=== PATIENT | female | born 1955 | race Caucasian/White ===

== ENCOUNTER 2016-11-13 14:25 | Inpatient (IN) | payer MEDICARE ==
[2016-11-13] MEDS ORDERED: HYDROmorphone 1 MG/ML 1 ML SYRINGE IVP STA (15:21)
[2016-11-13] MEDS ORDERED: ONDANSETRON 4 MG/2 ML VIAL IVP STA (15:21)
[2016-11-13] MEDS ORDERED: PANTOPRAZOLE 40 MG/10 ML VIAL IVP STA (15:22)
--- NOTE | 2016-11-13 15:26 | ED ---
General Adult HPI - General Chief complaint: Abdominal Pain Stated complaint: rectal bleeding/pain Time Seen by Provider: 11/13/16 14:56 Source: patient, RN notes reviewed Mode of arrival: ambulatory Limitations: no limitations - History of Present Illness Initial comments: Patient 61-year-old female who presents emergency room today with a chief complaint of increased abdominal pain over the last week. Does admit to a history of colitis. States that over the past weeks had increased symptoms with diarrhea. She states she's noticed blood in the stool in the toilet paper. She states it's a bright red color. Patient does admit to a colonoscopy approximately a year ago performed by Dr. Sanders. Patient states that she has had some abdominal discomfort in lower abdomen both right lower quadrant. She does admit to some symptoms of nausea vomiting last night. Patient denies any other symptoms. Patient denies any recent fever, chills, shortness of breath, chest pain, back pain, numbness or tingling, dysuria or hematuria, constipation, headaches or visual changes, or any other complaints. - Related Data Home Medications Medication Instructions Recorded Confirmed Benazepril HCl [Benazepril HCl] 20 mg PO QAM 01/24/16 11/13/16 Hydrocodone/Acetaminophen 1 tab PO BID PRN 01/24/16 11/13/16 [Hydrocodon-Acetaminophn 10-325] amLODIPine BESYLATE [Amlodipine 5 mg PO QAM 01/24/16 11/13/16 Besylate] Albuterol Sulfate [Proair Hfa] 1 puff INHALATION RT-Q6H PRN 08/15/16 11/13/16 Budesonide/Formoterol Fumarate 2 puff INHALATION RT-BID 11/13/16 11/13/16 [Symbicort 160-4.5 Mcg Inhaler] Dextroamphetamine/Amphetamine 15 mg PO QAM 11/13/16 11/13/16 [Adderall Xr] Etanercept [Enbrel] 50 mg SQ DIRECTED 11/13/16 11/13/16 Ipratropium-Albuterol Nebulize 3 ml INHALATION RT-QID PRN 11/13/16 11/13/16 [Duoneb 0.5 mg-3 mg/3 ml Soln] Allergies Allergy/AdvReac Type Severity Reaction Status Date / Time infliximab [From Remicade] Allergy Dyspnea/HIV Verified 11/13/16 14:51 ES propoxyphene HCl Allergy Unknown Verified 11/13/16 14:51 [From Darvon] Review of Systems ROS Statement: Those systems with pertinent positive or pertinent negative responses have been documented in the HPI. ROS Other: All systems not noted in ROS Statement are negative. 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 CA FROM PERINEUM Past Anesthesia/Blood Transfusion Reactions: No Reported Reaction Past Psychological History: No Psychological Hx Reported Smoking Status: Former smoker Past Alcohol Use History: Daily Additional Past Alcohol Use History / Comment(s): STATES QUIT SMOKING IN 1999, SMOKED 2 PPD SINCE AGE 12, STATES DRINKS 2 DRINKS A NIGHT Past Drug Use History: None Reported Additional Drug Use History / Comment(s): OCCASIONAL MARIJUANA USE, INSTRUCTED TO HOLD 24 HRS PRIOR TO PROCEDURE - Past Family History Father Family Medical History: Cancer Additional Family Medical History / Comment(s): COLON Mother Family Medical History: Cancer Additional Family Medical History / Comment(s): ESOPHAGUS Sister(s) Family Medical History: Cancer Additional Family Medical History / Comment(s): CERVICAL General Exam - General Exam Comments Initial Comments: General: The patient is awake and alert, in no distress, and does not appear acutely ill. Eye: Pupils are equal, round and reactive to light, extra-ocular movements are intact. No nystagmus. There is normal conjunctiva bilaterally. No signs of icterus. Ears, nose, mouth and throat: There are moist mucous membranes and no oral lesions. Neck: The neck is supple, there is no tenderness or JVD. Cardiovascular: There is a regular rate and rhythm. No murmur, rub or gallop is appreciated. Respiratory: Lungs are clear to auscultation, respirations are non-labored, breath sounds are equal. No wheezes, stridor, rales, or rhonchi. Gastrointestinal: Normal appearance for abdomen. Normal bowel sounds. Soft on palpation. Patient does have tenderness both right and left lower quadrants. No rebound tenderness. No guarding. No CVA tenderness. Musculoskeletal: Normal ROM, no tenderness. Strength 5/5. Sensation intact. Pulses equal bilaterally 2+. Neurological: A&O x 3. CN II-XII intact, There are no obvious motor or sensory deficits. Coordination appears grossly intact. Speech is normal. Skin: Skin is warm and dry and no rashes or lesions are noted. Psychiatric: Cooperative, appropriate mood & affect, normal judgment. Limitations: no limitations Course Vital Signs 11/13/16 14:48 Temperature 98.2 F Pulse Rate 87 Respiratory 18 Rate Blood Pressure 132/87 O2 Sat by Pulse 97 Oximetry Medical Decision Making - Medical Decision Making Patient reexamined at this time shows no signs of distress. She states she is feeling better after pain medication here in the emergency room. Her labs reviewed does show 14.9 white count. Guaiac positive. Patient's CT of the abdomen and pelvis reviewed and does show evidence for a focal colitis. Case discussed with him physician Dr. Hsieh and patient will be admitted to the hospitalist. She will be started on antibiotics here in the emergency room. - Lab Data Result diagrams: 11/13/16 15:05 11/13/16 15:05 Lab Results 11/13/16 11/13/16 11/13/16 Range/Units 15:05 15:05 15:05 WBC 14.9 H (3.8-10.6) k/uL RBC 4.54 (3.80-5.40) m/uL Hgb 15.4 (11.4-16.0) gm/dL Hct 47.8 H (34.0-46.0) % MCV 105.1 H (80.0-100.0) fL MCH 33.9 (25.0-35.0) pg MCHC 32.2 (31.0-37.0) g/dL RDW 12.4 (11.5-15.5) % Plt Count 279 (150-450) k/uL Neutrophils % 76 % Lymphocytes % 16 % Monocytes % 6 % Eosinophils % 1 % Basophils % 0 % Neutrophils # 11.3 H (1.3-7.7) k/uL Lymphocytes # 2.3 (1.0-4.8) k/uL Monocytes # 0.9 (0-1.0) k/uL Eosinophils # 0.2 (0-0.7) k/uL Basophils # 0.1 (0-0.2) k/uL Macrocytosis Slight PT (9.0-12.0) sec INR (<1.1) APTT (22.0-30.0) sec Sodium 135 L (137-145) mmol/L Potassium 4.1 (3.5-5.1) mmol/L Chloride 97 L (98-107) mmol/L Carbon Dioxide 28 (22-30) mmol/L Anion Gap 10 mmol/L BUN 19 H (7-17) mg/dL Creatinine 0.74 (0.52-1.04) mg/dL Est GFR (MDRD) Af Amer >60 (>60 ml/min/1.73 sqM) Est GFR (MDRD) Non-Af >60 (>60 ml/min/1.73 sqM) Glucose 102 H (74-99) mg/dL Calcium 9.1 (8.4-10.2) mg/dL Total Bilirubin 1.0 (0.2-1.3) mg/dL AST 25 (14-36) U/L ALT 43 (9-52) U/L Alkaline Phosphatase 85 (38-126) U/L Total Protein 7.2 (6.3-8.2) g/dL Albumin 4.1 (3.5-5.0) g/dL Urine Color Urine Appearance (Clear) Urine pH (5.0-8.0) Ur Specific Abell (1.001-1.035) Urine Protein (Negative) Urine Glucose (UA) (Negative) Urine Ketones (Negative) Urine Blood (Negative) Urine Nitrate (Negative) Urine Bilirubin (Negative) Urine Urobilinogen (<2.0) mg/dL Ur Leukocyte Esterase (Negative) Urine RBC (0-5) /hpf Urine WBC (0-5) /hpf Ur Squamous Epith Cells (0-4) /hpf Urine Mucus (None) /hpf Urine Yeast (Budding) (None) /hpf Stool Occult Blood Positive H (Negative) 11/13/16 11/13/16 Range/Units 15:05 17:08 WBC (3.8-10.6) k/uL RBC (3.80-5.40) m/uL Hgb (11.4-16.0) gm/dL Hct (34.0-46.0) % MCV (80.0-100.0) fL MCH (25.0-35.0) pg MCHC (31.0-37.0) g/dL RDW (11.5-15.5) % Plt Count (150-450) k/uL Neutrophils % % Lymphocytes % % Monocytes % % Eosinophils % % Basophils % % Neutrophils # (1.3-7.7) k/uL Lymphocytes # (1.0-4.8) k/uL Monocytes # (0-1.0) k/uL Eosinophils # (0-0.7) k/uL Basophils # (0-0.2) k/uL Macrocytosis PT 9.4 (9.0-12.0) sec INR 0.9 (<1.1) APTT 24.0 (22.0-30.0) sec Sodium (137-145) mmol/L Potassium (3.5-5.1) mmol/L Chloride (98-107) mmol/L Carbon Dioxide (22-30) mmol/L Anion Gap mmol/L BUN (7-17) mg/dL Creatinine (0.52-1.04) mg/dL Est GFR (MDRD) Af Amer (>60 ml/min/1.73 sqM) Est GFR (MDRD) Non-Af (>60 ml/min/1.73 sqM) Glucose (74-99) mg/dL Calcium (8.4-10.2) mg/dL Total Bilirubin (0.2-1.3) mg/dL AST (14-36) U/L ALT (9-52) U/L Alkaline Phosphatase (38-126) U/L Total Protein (6.3-8.2) g/dL Albumin (3.5-5.0) g/dL Urine Color Yellow Urine Appearance Clear (Clear) Urine pH 6.0 (5.0-8.0) Ur Specific Abell >1.050 H (1.001-1.035) Urine Protein Trace H (Negative) Urine Glucose (UA) Negative (Negative) Urine Ketones Negative (Negative) Urine Blood Small H (Negative) Urine Nitrate Negative (Negative) Urine Bilirubin Negative (Negative) Urine Urobilinogen <2.0 (<2.0) mg/dL Ur Leukocyte Esterase Small H (Negative) Urine RBC 1 (0-5) /hpf Urine WBC 2 (0-5) /hpf Ur Squamous Epith Cells 3 (0-4) /hpf Urine Mucus Rare H (None) /hpf Urine Yeast (Budding) Rare H (None) /hpf Stool Occult Blood (Negative) Disposition Clinical Impression: Acute colitis, Stool guaiac positive, GI bleed Disposition: ADMITTED IP TO THIS HOSP Condition: Stable Time of Disposition: 18:01
--- NOTE | 2016-11-13 15:52 | XR ---
EXAMINATION TYPE: XR KUB DATE OF EXAM: 11/13/2016 3:47 PM CLINICAL HISTORY: Rectal bleeding and lower abdominal pain. History of colitis. TECHNIQUE: 2 upright KUB images of the abdomen are obtained COMPARISON: None. FINDINGS: Scattered gas is seen in non-distended small bowel loops. Gas is seen in non-distended co nicholas. There suggestion of mild wall thickening involving colonic loops in the left lower quadrant. No pneumoperitoneum or suspicious calcification is seen. Lung bases are clear. Osseous structures are in tact. IMPRESSION: Overall nonobstructive bowel gas pattern. Consider colitis left lower quadrant involving distal left colon.
[2016-11-13 15:57] LABS: Basophils # (A) 0.1 k/uL (0-0.2); Basophils % (A) 0 %; CH 34.6; CHCM 33.1; Eosinophils # (A) 0.2 k/uL (0-0.7); Eosinophils % (A) 1 %; HCT 47.8 % (34.0-46.0); HDW 2.04; HGB 15.4 gm/dL (11.4-16.0); Luc # (Auto) 0.16; Luc % (Auto) 1; Lymphocytes # (A) 2.3 k/uL (1.0-4.8); Lymphocytes % (A) 16 %; MCH 33.9 pg (25.0-35.0); MCHC 32.2 g/dL (31.0-37.0); MCV 105.1 fL (80.0-100.0); Macrocytosis Slight; Mean Platelet Volume 8.6; Monocytes # (A) 0.9 k/uL (0-1.0); Monocytes % (A) 6 %; Neutrophils # (A) 11.3 k/uL (1.3-7.7); Neutrophils % (A) 76 %; RBC 4.54 m/uL (3.80-5.40); RDW 12.4 % (11.5-15.5); WBC 14.9 k/uL (3.8-10.6); WBC (Perox) 15.12
[2016-11-13 16:01] LABS: ALT 43 U/L (9-52); AST 25 U/L (14-36); Alkaline Phosphatase 85 U/L (38-126); Anion Gap 10 mmol/L; Blood Urea Nitrogen 19 mg/dL (7-17); Calcium 9.1 mg/dL (8.4-10.2); Carbon Dioxide 28 mmol/L (22-30); Chloride 97 mmol/L (98-107); Glucose 102 mg/dL (74-99); Non-African American GFR(MDRD) >60 (>60 ml/min/1.73 sqM); Potassium 4.1 mmol/L (3.5-5.1); Sodium 135 mmol/L (137-145); Total Protein 7.2 g/dL (6.3-8.2)
[2016-11-13 16:06] LABS: INR 0.9 (<1.1); Prothrombin Time 9.4 sec (9.0-12.0)
[2016-11-13] MEDS ORDERED: RX INFO: IV CONTRAST WAS GIVEN 1 EACH MISC MISCELLANE PRN (16:07)
--- NOTE | 2016-11-13 17:17 | CT ---
EXAMINATION TYPE: CT abdomen pelvis w con DATE OF EXAM: 11/13/2016 5:00 PM COMPARISON: NONE HISTORY: Pt states of abdominal pain and blood in stool. CT DLP: 857 mGycm Automated exposure control for dose reduction was used. TECHNIQUE: Helical acquisition of images was performed from the lung bases through the pelvis. CONTRAST: Performed without Oral Contrast and with IV Contrast, patient injected with 100 mL of Omnipaque 300. FINDINGS: Lung bases are clear of consolidation. There is no pleural effusion. Heart size is normal. The liver spleen pancreas gallbladder appear normal. Bile ducts are not dilated . There is no adrenal mass. Kidneys show satisfactory contrast opacification. There is no hydronephro sis. There is no retroperitoneal adenopathy. The bladder distends smoothly. There is no sign of a pel khang mass. There is mild thickening of the wall of the descending colon. There is no ascites. I see no bony destructive process. Abdominal aorta is atheromatous. Appendix is not seen. There is no sign of appendicitis. IMPRESSION: THERE IS MILD WALL THICKENING INVOLVING THE DESCENDING COLON THAT APPEARS NEW COMPARED TO OLD EXAM AN D COULD RELATE TO FOCAL COLITIS.
[2016-11-13 17:24] LABS: Appearance,Urine Clear (Clear); Bilirubin,Urine Negative (Negative); Glucose,Urine (UA) Negative (Negative); Ketones,Urine Negative (Negative); Leukocyte Esterase,Urine Small (Negative); Mucus,Urine Rare /hpf; Nitrite,Urine Negative (Negative); Particle Count 2041; Protein,Urine Trace (Negative); RBC,Urine 1 /hpf (0-5); Squamous Epithelial Cell,Urine 3 /hpf (0-4); UA Billing (MACRO vs. MICRO) MICRO; Urobilinogen,Urine <2.0 mg/dL (<2.0); WBC,Urine 2 /hpf (0-5)
[2016-11-13 17:44] LABS: Specific Gravity,Urine >1.050 (1.001-1.035)
[2016-11-13] MEDS ORDERED: metroNIDAZOLE-NS PMX 500 MG in SALINE 1 100ML.BAG IVPB STA (18:02)
[2016-11-13] MEDS ORDERED: ONDANSETRON 4 MG/2 ML VIAL IVP PRN (18:02)
[2016-11-13] MEDS ORDERED: LEVOFLOXACIN 500MG-D5W PMX 500 MG in DEXTROSE/WATER 1 100ML.BAG IVPB STA (18:02)
[2016-11-13] MEDS ORDERED: ACETAMINOPHEN TAB 325 MG TAB PO PRN (18:02)
[2016-11-13] MEDS ORDERED: SODIUM CHLORIDE 0.9% 1,000 ML IV ONE (18:02)
[2016-11-13] MEDS ORDERED: NALOXONE 0.4 MG/ML 1 ML VIAL IV PRN (18:02)
[2016-11-13] MEDS: HYDROmorphone 1 MG/ML 1 ML SYRINGE IV PRN ×2 (18:59→22:53)
[2016-11-13] MEDS ORDERED: ALBUTEROL NEBULIZED 2.5 MG/3 ML INHALATION PRN (22:06)
[2016-11-13] MEDS: IPRATROPIUM-ALBUTEROL 3 ML NEB INHALATION PRN (22:21)
[2016-11-13] MEDS: metroNIDAZOLE-NS PMX 500 MG in SALINE 1 100ML.BAG IVPB SCH (22:59)
[2016-11-13] MEDS: MELATONIN 3 MG TABLET PO PRN (23:35)
[2016-11-14] MEDS: HYDROmorphone 1 MG/ML 1 ML SYRINGE IV PRN ×3 (04:06→11:32)
[2016-11-14] MEDS: IPRATROPIUM-ALBUTEROL 3 ML NEB INHALATION PRN ×4 (07:44→19:48)
[2016-11-14] MEDS: SYMBICORT 160-4.5 MCG INHALER INHALATION SCH ×2 (07:45→19:48)
[2016-11-14] MEDS: amLODIPine 5 MG TAB PO SCH (08:15)
[2016-11-14] MEDS: metroNIDAZOLE-NS PMX 500 MG in SALINE 1 100ML.BAG IVPB SCH ×3 (08:15→23:17)
[2016-11-14] MEDS: PANTOPRAZOLE 40 MG/10 ML VIAL IV SCH (08:15)
[2016-11-14 08:43] LABS: Basophils % (A) 0 %; CH 34.2; CHCM 32.4; Eosinophils # (A) 0.2 k/uL (0-0.7); Eosinophils % (A) 2 %; HCT 38.5 % (34.0-46.0); HGB 12.5 gm/dL (11.4-16.0); Luc # (Auto) 0.28; Luc % (Auto) 3; Lymphocytes % (A) 18 %; MCH 34.4 pg (25.0-35.0); MCHC 32.4 g/dL (31.0-37.0); MCV 106.1 fL (80.0-100.0); Macrocytosis Slight; Mean Platelet Volume 7.6; Monocytes # (A) 0.7 k/uL (0-1.0); Monocytes % (A) 6 %; Neutrophils # (A) 7.7 k/uL (1.3-7.7); Neutrophils % (A) 71 %; RBC 3.63 m/uL (3.80-5.40); RDW 12.1 % (11.5-15.5); WBC 10.8 k/uL (3.8-10.6); WBC (Perox) 10.85
[2016-11-14 09:07] LABS: ALT 35 U/L (9-52); AST 18 U/L (14-36); Alkaline Phosphatase 66 U/L (38-126); Anion Gap 7 mmol/L; Blood Urea Nitrogen 12 mg/dL (7-17); Calcium 8.6 mg/dL (8.4-10.2); Carbon Dioxide 25 mmol/L (22-30); Chloride 104 mmol/L (98-107); Glucose 92 mg/dL (74-99); Non-African American GFR(MDRD) >60 (>60 ml/min/1.73 sqM); Potassium 4.4 mmol/L (3.5-5.1); Sodium 136 mmol/L (137-145); Total Bilirubin 0.9 mg/dL (0.2-1.3); Total Protein 5.8 g/dL (6.3-8.2)
[2016-11-14] MEDS: LEVOFLOXACIN 500MG-D5W PMX 500 MG in DEXTROSE/WATER 1 100ML.BAG IVPB SCH (10:26)
[2016-11-14 11:56] VITALS: BMI 29.8
[2016-11-14] MEDS ORDERED: NON-FORMULARY DRUG (Etanercept [Enbrel] 50 MG) SQ SCH (13:00)
[2016-11-14] MEDS: HYDROcodone/APAP 5-325MG 1 EACH TAB PO PRN ×2 (13:14→16:35)
[2016-11-14] MEDS: traMADol 50 MG TAB PO PRN ×2 (14:32→20:20)
[2016-11-14] MEDS ORDERED: FLUCONAZOLE 100 MG TAB PO STA (16:51)
[2016-11-14] MEDS: HYDROcodone/APAP 10-325MG 1 EACH TAB PO PRN ×2 (17:24→21:36)
--- NOTE | 2016-11-14 19:25 | HP ---
DATE OF ADMISSION: Patient a 61-year-old admitted with lower quadrant abdominal pain bilaterally along with bilateral lower quadrant abdominal pain along with nausea, vomiting, diarrhea and a little bit of bright red blood per rectum, all of which symptoms improved. Patient is still having pain in that area. Patient denied any fevers, chills. Patient denied any nausea, vomiting. Patient is found to have colitis in the descending colon on the CT and patient was started on metronidazole and ciprofloxacin with improvement in symptoms and leukocytosis. Patient denied any dysuria. Patient denied any hematuria, hematemesis. Patient denied any constipation. Patient does use a fiber diet at home. REVIEW OF SYSTEMS: CONSTITUTIONAL: No fever, no malaise, no fatigue. HEENT: No recent visual problems or hearing problems. Denied any sore throat. CARDIOVASCULAR: No chest pain, orthopnea, PND, no palpitations, no syncope. PULMONARY: No shortness of breath, no cough, no hemoptysis. GASTROINTESTINAL: As described in HPI. NEUROLOGICAL: No headaches, no weakness, no numbness. HEMATOLOGICAL: Denies any bleeding or petechiae. GENITOURINARY: Denies any burning micturition, frequency, or urgency. MUSCULOSKELETAL/RHEUMATOLOGICAL: Denies any joint pain, swelling, or any muscle pain. ENDOCRINE: Denies any polyuria or polydipsia. The rest of the 14 point review of systems is negative. Home medications include: Benazepril, hydrocodone, acetaminophen, amlodipine, budesonide, formoterol, dexamphetamine, amphetamine, ( ) for rheumatoid arthritis which she does not have any exacerbation, albuterol and ipratropium. ALLERGIES: ALLERGIC TO INFLIXIMAB AND PROPOXYPHENE. PAST MEDICAL HISTORY: Significant for COPD, hypertension, rheumatoid arthritis, chronic obstructive pulmonary disease and patient had perianal cancer. PAST SURGICAL HISTORY: Hysterectomy, joint replacement surgery, former smoker. Quit smoking in 1999. Denied any alcohol abuse or any drug abuse. FAMILY HISTORY: Significant for colon cancer in father and esophageal cancer in mother. Cervical cancer in sister. PHYSICAL EXAMINATION: VITAL SIGNS: 97.3, pulse of 88, respiratory rate of 16, blood pressure is 117/81, saturating at 94% on room air. GENERAL: The patient is alert and oriented x3, not in any acute distress. Well developed, well nourished. HEENT: Pupils are round and equally reacting to light. EOMI. No scleral icterus. No conjunctival pallor. Normocephalic, atraumatic. No pharyngeal erythema. No thyromegaly. CARDIOVASCULAR: S1 and S2 present. No murmurs, rubs, or gallops. PULMONARY: Chest is clear to auscultation, no wheezing or crackles. ABDOMEN: Minimal tenderness in the left upper quadrant area was appreciated. MUSCULOSKELETAL: No joint swelling or deformity. EXTREMITIES: No cyanosis, clubbing, or pedal edema. NEUROLOGICAL: Gross neurological examination did not reveal any focal deficits. SKIN: No rashes. LABORATORY DATA: CBC, CMP are abnormal for elevated WBC count, which is improving at this point of time. Sodium improved to 135 to 136. BUN and creatinine improved as well. ASSESSMENT AND PLAN: 1. Colitis. Patient has colitis, which appears to be diverticulitis as per the CT of the abdomen. Considering history of her cancer in the past, I will go ahead and consult Gastroenterology for an inpatient versus outpatient colonoscopy. 2. Lower gastrointestinal bleed, mostly probably related to diverticulitis. Patient will be continued on antibiotics. Because of gastrointestinal bleed and history of colon cancer, I will go ahead and consult Gastroenterology. Patient probably can be discharged on oral antibiotics tomorrow. 3. Hypertension. 4. Chronic obstructive pulmonary disease without any acute exacerbation. 5. Rheumatoid arthritis. For above mentioned chronic medical problems I will go ahead and continue her home medications except for benazepril.
[2016-11-14] MEDS: MELATONIN 3 MG TABLET PO PRN (21:06)
[2016-11-15] MEDS: HYDROcodone/APAP 10-325MG 1 EACH TAB PO PRN ×5 (02:08→20:15)
[2016-11-15] MEDS: SYMBICORT 160-4.5 MCG INHALER INHALATION SCH ×2 (08:11→20:31)
[2016-11-15] MEDS: IPRATROPIUM-ALBUTEROL 3 ML NEB INHALATION PRN ×4 (08:11→20:31)
[2016-11-15] MEDS: metroNIDAZOLE-NS PMX 500 MG in SALINE 1 100ML.BAG IVPB SCH ×3 (08:45→23:37)
[2016-11-15] MEDS: PANTOPRAZOLE 40 MG/10 ML VIAL IV SCH (08:46)
[2016-11-15] MEDS: amLODIPine 5 MG TAB PO SCH (08:46)
[2016-11-15] MEDS ORDERED: AMPHETAMINE PO SCH (09:00)
[2016-11-15] MEDS ORDERED: DEXTROAMPHETAMINE PO SCH (09:00)
--- NOTE | 2016-11-15 09:41 | P.CONS ---
History of Present Illness - Reason for Consult Consult date: 11/15/16 Colitis GI bleed Requesting physician: Molly Canela - History of Present Illness 61-year-old female patient of Dr. Mijares with a past medical history of ischemic colitis, hemorrhoids, obesity, remote nicotine cigarette dependency, chronic constipation, vulvar carcinoma, hypertension, COPD, rheumatoid arthritis, depression, and daily alcohol consumption. Has 2-3 vodka drinks a night. She presents with crampy lower abdominal pain with multiple loose brown bowel movements mixed with red blood 2 days. This has been intermittently chronic in nature for the last 4 years. EGD colonoscopy December [address] Burger. EGD reported no evidence of peptic ulcer disease. Colonoscopy was incomplete secondary to redundancy of colon. Follow-up barium enema reported narrowing in the mid sigmoid colon barium was unable to pass beyond that region. Prior colonoscopy sometime between [id number] Soliman at [facility] was attempted but patient doesn't know if it was an incomplete exam or not. She reports chronic constipation having bowel moments every 3-4 days despite taking MiraLAX. No fever or chills. No recent antibiotics. Denies weight loss hematemesis or melena. Denies aspirin or NSAID or antiplatelet medications. Rectal bleeding in the past been attributed to "hemorrhoids". White count 14.9 currently 10.8. Admission hemoglobin 15.4 currently 12.5. MCV 106. Platelet 234. INR 0.9. BUN 19. Creatinine 0.7. Hemoccult stool positive for blood. CT abdomen and pelvis with oral and IV contrast reported mild wall thickening involving the descending colon possible focal colitis. Review of Systems Constitutional: Denies fever, chills, sweats, weight gain, or loss. HEENT: Negative for migraines, blurred vision or loss, earaches, drainage, tinnitus, oral mucosal lesions, dysphagia, or odynophagia. CARDIAC: Negative for chest pain, arrhythmias, or palpitation. RESPIRATORY: History COPD. History of pneumonia. Negative for shortness of breath, hemoptysis, cough, or sputum production. Remote cigarette usage. GI: See HPI for pertinent findings. : Negative for hematuria, urgency, frequency, polyuria, or dysuria. GYNc: History of vulvar cancer. Denies possibility of . Negative vaginal discharge. MUSCULOSKELETAL: Negative for muscle aches, swelling, arthritis, and arthralgias. NEUROLOGIC: Negative for stroke or TIA. ENDOCRINE: History of rheumatoid arthritis. Negative for thyroid problems. SKIN: Negative for rash or itching. PSYCHIATRIC: History of depression. All systems: negative (See HPI) Past Medical History Past Medical History: Cancer, COPD, Hypertension, Pneumonia, Rheumatoid Arthritis (RA) Additional Past Medical History / Comment(s): HX RECTAL BLEEDING, CA VULVA, UTI, COLITIS,POLYPS(BENIGN),GOUT,OSTEOPOROSIS,SINUS/SEASONAL ALLERGIES History of Any Multi-Drug Resistant Organisms: None Reported Past Surgical History: Hysterectomy, Joint Replacement Additional Past Surgical History / Comment(s): RT KNEE REPLACEMENT, SX TO REMOVE CANCER VULVA,EGD,COLONOSCOPY, LASIK EYE SX Past Anesthesia/Blood Transfusion Reactions: No Reported Reaction Additional Past Anesthesia/Blood Transfusion Reaction / Comm: CLAUSTERPHOBIA Past Psychological History: Depression Additional Psychological History / Comment(s): PT STATEED OCC MILD DEPRESSION NO THOUGHTS OF HARMING SELF Smoking Status: Former smoker Past Alcohol Use History: Daily Additional Past Alcohol Use History / Comment(s): STATES QUIT SMOKING IN 1999, SMOKED 2 PPD SINCE AGE 12, STATES DRINKS 2-3 DRINKS A NIGHT(VODKA MIXED WITH BA AID Past Drug Use History: None Reported Additional Drug Use History / Comment(s): PAST OCC MARIJUANA- QUIT - Past Family History Father Family Medical History: Cancer Additional Family Medical History / Comment(s): COLON Mother Family Medical History: Cancer Additional Family Medical History / Comment(s): ESOPHAGUS Sister(s) Family Medical History: Cancer Additional Family Medical History / Comment(s): CERVICAL Medications and Allergies Home Medications Medication Instructions Recorded Confirmed Type Benazepril HCl [Benazepril HCl] 20 mg PO QAM 01/24/16 11/13/16 History Hydrocodone/Acetaminophen 1 tab PO BID PRN 01/24/16 11/13/16 History [Hydrocodon-Acetaminophn 10-325] amLODIPine BESYLATE [Amlodipine 5 mg PO QAM 01/24/16 11/13/16 History Besylate] Albuterol Sulfate [Proair Hfa] 1 puff INHALATION RT-Q6H PRN 08/15/16 11/13/16 History Budesonide/Formoterol Fumarate 2 puff INHALATION RT-BID 11/13/16 11/13/16 History [Symbicort 160-4.5 Mcg Inhaler] Dextroamphetamine/Amphetamine 15 mg PO QAM 11/13/16 11/13/16 History [Adderall Xr] Etanercept [Enbrel] 50 mg SQ DIRECTED 11/13/16 11/13/16 History Ipratropium-Albuterol Nebulize 3 ml INHALATION RT-QID PRN 11/13/16 11/13/16 History [Duoneb 0.5 mg-3 mg/3 ml Soln] Allergies Allergy/AdvReac Type Severity Reaction Status Date / Time infliximab [From Remicade] Allergy Dyspnea/HIV Verified 11/13/16 14:51 ES propoxyphene HCl Allergy Unknown Verified 11/13/16 14:51 [From Darvon] Physical Exam Vitals: Vital Signs Temp Pulse Pulse Resp BP Pulse Ox 11/15/16 07:00 97.1 F L 75 18 129/50 90 L 11/14/16 23:00 98.7 F 83 20 130/70 93 L 11/14/16 20:02 78 11/14/16 19:49 76 11/14/16 16:06 88 11/14/16 15:57 80 11/14/16 14:38 97.3 F L 82 16 117/81 94 L 11/14/16 11:13 88 11/14/16 11:02 88 Intake and Output 11/14/16 11/15/16 11/15/16 22:59 06:59 14:59 Other: # Voids 2 3 1 General appearance: The patient is alert, oriented, in no acute distress. HET: Head is normocephalic and atraumatic. Pupils are equal and reactive. Oropharynx is clear without lesions. Neck: Supple without lymphadenopathy. Trachea midline. Heart: S1 S2. Regular rate and rhythm. Lungs: No crackles or wheezes are heard. Abdomen: Soft, mild tenderness bilateral lower abdomen greater than left and right, nondistended with bowel sounds. No peritoneal signs. No palpable organomegaly or masses. Extremities: Normal skin color and turgor. No cyanosis, rash, ulceration, clubbing, or edema. Radial and pedal pulses are 2/4 bilaterally. Neurological: No focal deficits. Strength and sensation are grossly intact. Results CBC & Chem 7: 11/14/16 07:54 11/14/16 07:54 CT scan - abdomen: report reviewed CT scan - pelvis: report reviewed (Reviewed by Dr. Ponce) Assessment and Plan (1) GI bleed Narrative/Plan: 61-year-old female with a history of chronic intermittent rectal bleeding with underlying constipation and history of ischemic colitis presents with acute rectal bleeding with CT imaging reporting focal descending colitis suspect component of ischemic colitis exacerbated by chronic constipation. His tree of mid sigmoid narrowing with incomplete colonoscopy exam 10 months ago. Follow- up barium enema reported narrowing in the mid sigmoid however barium could not be introduced beyond that point suspect possible stricture disease however neoplasm cannot be entirely excluded. Status: Acute (2) Acute colitis Status: Acute (3) History of hemorrhoids Status: Chronic (4) EtOH dependence Status: Chronic (5) Chronic constipation Status: Chronic Plan: 1. Stool studies. 2. Liquid diet. 3. We'll attempt to obtain colonoscopy at [facility] 3-4 years ago and review however even if colonoscopy was completed at that time, advise repeat colonoscopy during this hospitalization secondary to persistent rectal bleeding and history of incomplete exams due to tortuous colon with radiographic imaging suggesting mid sigmoid narrowing. If unable to tolerate bowel prep will proceed with flexible sigmoidoscopy. Consider surgical consultation; patient know to Drs. Burger and Janny. 4. Stool softeners were discussed for treatment of constipation. The mutual fund sales agent has discussed the risks, benefits and alternative therapies for the above-mentioned procedure and for both sedation/analgesia as well as necessary blood product administration, if indicated, as they pertain to this patient. The patient has indicated understanding and acceptance of the risks and procedures discussed. Thank you for this kind referral and the opportunity to participate in the care of your patient. This consultation was discussed with Dr. Ponce. The impression and plan of care have been directed as dictated.
[2016-11-15] MEDS: LEVOFLOXACIN 500MG-D5W PMX 500 MG in DEXTROSE/WATER 1 100ML.BAG IVPB SCH (10:54)
[2016-11-15] MEDS: predniSONE 20 MG TAB PO SCH (12:38)
[2016-11-15] MEDS ORDERED: PEG 3350-NA SULF,BICARB,CL/KCL 4,000 ML BOTTLE PO ONE (14:00)
[2016-11-15] MEDS: HYDROmorphone 1 MG/ML 1 ML SYRINGE IV PRN (16:37)
--- NOTE | 2016-11-15 19:14 | PN ---
Patient was admitted with left lower quadrant abdominal pain, was found to have nonspecific focal colitis. Ischemic colitis is being considered by Gastroenterology. Patient is going for lower GI endoscopy and patient is also being treated for diverticulitis at this point of time. Patient continues to complain of some blood whenever she wipes. Patient has history of hemorrhoids in the past. REVIEW OF SYSTEMS: CARDIOVASCULAR: No chest pain, no orthopnea, no PND, no palpitations. PULMONARY: Denied any shortness of breath. No cough or hemoptysis. GASTROINTESTINAL: As described in HPI. Patient denied any abdominal pain today. NEUROLOGIC: No headaches, no weakness, no numbness. Medications were reviewed. PHYSICAL EXAMINATION: VITAL SIGNS: Temperature 97.1, pulse of 80, respiratory rate of 18. Blood pressure is 129/50. Saturating at 90% on room air. GENERAL: The patient is alert and oriented x3, not in any acute distress. Well developed, well nourished. HEENT: Pupils are round and equally reacting to light. EOMI. No scleral icterus. No conjunctival pallor. Normocephalic, atraumatic. No pharyngeal erythema. No thyromegaly. CARDIOVASCULAR: S1 and S2 present. No murmurs, rubs, or gallops. PULMONARY: Patient has very limited air entry to bilateral lung guzman. Significant wheezing bilaterally, because of which I am starting her on systemic steroids. Patient is already on inhalational steroids. ABDOMEN: Soft, nontender, nondistended, normoactive bowel sounds. No palpable organomegaly. MUSCULOSKELETAL: No joint swelling or deformity. EXTREMITIES: No cyanosis, clubbing, or pedal edema. NEUROLOGICAL: Gross neurological examination did not reveal any focal deficits. SKIN: No rashes. LABORATORY DATA: CBC, CMP are abnormal for elevated WBC count, but improved compared to yesterday. ASSESSMENT AND PLAN: 1. Acute lower gastrointestinal bleed, probably due to colitis, most ischemic colitis. Infectious colitis cannot be ruled out, because of which patient is on antibiotics metronidazole and levofloxacin. 2. Lower gastrointestinal bleed, probably multifactorial. There are no external hemorrhoids. Patient might as well have internal hemorrhoids responsible for her bleed. Patient is going for lower GI endoscopy. 3. Hypertension. 4. Chronic obstructive pulmonary disease with acute exacerbation. I have started her on 20 mg oral steroids, inhalational treatments and inhalational steroids. Patient is wheezing quite a bit at this point of time, although I do not believe patient has tracheobronchitis. Even if she has, patient is on 2 antibiotics at this point of time. 5. Rheumatoid arthritis. 6. History of chronic constipation.
[2016-11-15] MEDS: MELATONIN 3 MG TABLET PO PRN (23:39)
[2016-11-16] MEDS: HYDROmorphone 1 MG/ML 1 ML SYRINGE IV PRN ×6 (01:23→21:37)
[2016-11-16] MEDS: SYMBICORT 160-4.5 MCG INHALER INHALATION SCH ×2 (07:30→19:10)
[2016-11-16] MEDS: IPRATROPIUM-ALBUTEROL 3 ML NEB INHALATION PRN ×3 (07:30→19:10)
[2016-11-16] MEDS: metroNIDAZOLE-NS PMX 500 MG in SALINE 1 100ML.BAG IVPB SCH ×3 (09:25→23:53)
[2016-11-16] MEDS: PANTOPRAZOLE 40 MG/10 ML VIAL IV SCH (09:28)
[2016-11-16] MEDS: LEVOFLOXACIN 500MG-D5W PMX 500 MG in DEXTROSE/WATER 1 100ML.BAG IVPB SCH (10:13)
[2016-11-16] MEDS ORDERED: fentaNYL (PF) 50 MCG/ML 2 ML AMP ONE (11:51)
[2016-11-16] MEDS ORDERED: PROPOFOL 10 MG/ML 20 ML VIAL IV ONE (11:51)
[2016-11-16] MEDS ORDERED: MIDAZOLAM 2 MG/2 ML VIAL ONE (11:51)
[2016-11-16] MEDS ORDERED: IV FLUID CONTINUATION 1,000 ML IV ONE (11:52)
--- NOTE | 2016-11-16 12:27 | P.PCN ---
Date of Procedure: 11/16/16 Procedure(s) Performed: BRIEF HISTORY: Patient is a 61-year-old pleasant white female, admitted hospital with acute lower GI bleed. She had multiple episodes of bright red blood per rectum associated with cramping lower abdominal pain. She came into the emergency room and had a CT of the abdomen and pelvis done that showed thickening of the left colon suspicious for colitis. The patient had an attempted colonoscopy by Dr. Stewart in January 2016 for rectal bleeding and the scope could be advanced only to the sigmoid colon was incomplete. A subsequent barium enema could not evaluate the rest of the colon and was incomplete. Because of the rectal bleeding and abnormal CAT scan she is scheduled for an elective colonoscopy . PROCEDURE PERFORMED: Colonoscopy with biopsy and snare polypectomy. PREOPERATIVE DIAGNOSIS: Acute lower GI bleed. IV sedation per Anesthesia. PROCEDURE: After informed consent was obtained, the patient, was brought into the endoscopy unit. IV conscious sedation was administered by Anesthesia under continuous monitoring. Initially the Olympus CF-160 flexible pediatric video colonoscope was then inserted in the rectum, gradually advanced into the cecum without any difficulty. Careful examination was performed as the scope was gradually being withdrawn. Ileocecal valve and the appendiceal orifice were visualized and appeared normal. Prep was excellent. In the base of the cecum there were 3 broad-based polyps identified. Each measured 1 cm, 2 cm both of which were removed by snare polypectomy. The last polyp measuring almost 3.5-4 cm in broad-based an early partial polypectomy couldn't be performed. In the ascending colon there was a 5 mm polyp removed by snare polypectomy. The rest of the mucosa of the cecum, ascending colon, transverse colon, appeared normal. There was segmental colitis involving the sigmoid colon and descending colon extending from 30-60 cm from the anal verge with mucosal erythema and friability consistent with ischemic colitis versus infectious colitis and biopsies were done from this area. The rectum appeared normal. Retroflexion was performed in the rectum and no lesions were seen. The patient tolerated the procedure well. IMPRESSION: 1.Segmental colitis involving the left colon extending from 30-60 cm from the anal verge with mild mucosal erythema and friability consistent with ischemic colitis but possibility of infectious colitis cannot be excluded area status post multiple biopsies 2. 3 polyps in the cecum measuring 1 cm, 2 cm and 3.5 cm in size. the 2 small polyps were removed completely but the broad-based 3.5 cm polyp was only partially removed with snare polypectomy. 3. Friability reasoning colon polyp serous was snare polypectomy RECOMMENDATIONS: Findings of this examination were discussed with the patient as well as a family. At this time will await the biopsy results. She will be started on a soft diet. The patient will follow-up with me in the office in a week following discharge from the hospital and will discuss the biopsy results from the cecal polyp and based on the biopsy results and appropriate plans will be made.
[2016-11-16] MEDS: LACTATED RINGERS 1,000 ML IV SCH ×2 (12:51→21:23)
[2016-11-16] MEDS: predniSONE 20 MG TAB PO SCH (12:52)
[2016-11-16] MEDS: amLODIPine 5 MG TAB PO SCH (12:52)
[2016-11-16 13:16] LABS: Basophils % (A) 0 %; CH 34.2; CHCM 32.5; Eosinophils # (A) 0.2 k/uL (0-0.7); Eosinophils % (A) 2 %; HCT 37.4 % (34.0-46.0); HDW 2.06; HGB 12.1 gm/dL (11.4-16.0); Luc # (Auto) 0.11; Luc % (Auto) 1; Lymphocytes # (A) 1.5 k/uL (1.0-4.8); Lymphocytes % (A) 16 %; MCH 34.3 pg (25.0-35.0); MCHC 32.5 g/dL (31.0-37.0); MCV 105.5 fL (80.0-100.0); Macrocytosis Slight; Mean Platelet Volume 8.1; Monocytes # (A) 0.6 k/uL (0-1.0); Monocytes % (A) 7 %; Neutrophils # (A) 6.9 k/uL (1.3-7.7); Neutrophils % (A) 74 %; RBC 3.54 m/uL (3.80-5.40); RDW 12.1 % (11.5-15.5); WBC 9.4 k/uL (3.8-10.6); WBC (Perox) 10.18
[2016-11-16 13:37] LABS: Anion Gap 7 mmol/L; Blood Urea Nitrogen 7 mg/dL (7-17); Calcium 8.7 mg/dL (8.4-10.2); Carbon Dioxide 29 mmol/L (22-30); Chloride 104 mmol/L (98-107); Glucose 83 mg/dL (74-99); Non-African American GFR(MDRD) >60 (>60 ml/min/1.73 sqM); Potassium 3.8 mmol/L (3.5-5.1); Sodium 140 mmol/L (137-145)
--- NOTE | 2016-11-16 22:39 | XR ---
EXAMINATION TYPE: XR chest 1V portable DATE OF EXAM: 11/16/2016 10:16 PM COMPARISON: 08/29/2013 HISTORY: Shortness of breath congestion history of COPD TECHNIQUE: Single frontal view of the chest is obtained. Portable study upright 11/16/2016, 10:11 PM h ours FINDINGS: There is suggestion of mild pulmonary vascular congestion. Chronic lung changes are suggested. No foc al pneumonia pneumothorax or pleural effusion is noted. There is mild cardiomegaly. Atherosclerotic c alcification is noted in the aortic arch. Osseous structures are intact. IMPRESSION: 1. Mild pulmonary vascular congestion. 2. No focal pneumonia. 3. Cardiomegaly.
[2016-11-16] MEDS: HYDROcodone/APAP 10-325MG 1 EACH TAB PO PRN (23:46)
[2016-11-16] MEDS: methylPREDNISolone SOD SUCCI 40 MG/ML 1 ML VIAL IV SCH (23:46)
[2016-11-17] MEDS: MELATONIN 3 MG TABLET PO PRN (00:19)
[2016-11-17] MEDS: HYDROcodone/APAP 10-325MG 1 EACH TAB PO PRN ×4 (04:00→18:47)
[2016-11-17] MEDS: methylPREDNISolone SOD SUCCI 40 MG/ML 1 ML VIAL IV SCH ×3 (05:41→17:51)
[2016-11-17 07:52] LABS: Glucose,Whole Blood 136 mg/dL (75-99)
[2016-11-17] MEDS: INSULIN LISPRO (humaLOG) 300 UNIT/3 ML VIAL SQ SCH ×4 (08:19→21:48)
[2016-11-17] MEDS: PANTOPRAZOLE 40 MG/10 ML VIAL IV SCH (08:20)
[2016-11-17] MEDS: LISINOPRIL 20 MG TAB PO SCH (08:20)
[2016-11-17] MEDS: metroNIDAZOLE-NS PMX 500 MG in SALINE 1 100ML.BAG IVPB SCH ×2 (08:20→16:06)
[2016-11-17] MEDS: amLODIPine 5 MG TAB PO SCH (08:20)
[2016-11-17 08:50] LABS: Basophils % (A) 0 %; CH 33.9; Eosinophils % (A) 0 %; HDW 2.02; HGB 12.6 gm/dL (11.4-16.0); Luc # (Auto) 0.02; Luc % (Auto) 0; Lymphocytes # (A) 0.4 k/uL (1.0-4.8); Lymphocytes % (A) 7 %; MCH 33.5 pg (25.0-35.0); MCHC 31.5 g/dL (31.0-37.0); MCV 106.5 fL (80.0-100.0); Macrocytosis Slight; Mean Platelet Volume 7.3; Monocytes # (A) 0.1 k/uL (0-1.0); Monocytes % (A) 1 %; Neutrophils # (A) 4.9 k/uL (1.3-7.7); Neutrophils % (A) 91 %; RBC 3.76 m/uL (3.80-5.40); WBC 5.4 k/uL (3.8-10.6); WBC (Perox) 5.94
[2016-11-17] MEDS: LEVALBUTEROL NEB (CONC) 1.25 MG/0.5 ML AMP INHALATION SCH ×4 (09:11→19:22)
[2016-11-17] MEDS: IPRATROPIUM 0.5 MG/2.5 ML NEBU INHALATION SCH ×4 (09:11→19:22)
[2016-11-17] MEDS: FORMOTEROL FUMARATE 20 MCG/2 ML NEBU INHALATION SCH ×2 (09:11→19:22)
[2016-11-17] MEDS: BUDESONIDE 1 MG/2 ML NEBU INHALATION SCH ×2 (09:11→19:22)
[2016-11-17 09:26] LABS: Anion Gap 9 mmol/L; Blood Urea Nitrogen 11 mg/dL (7-17); Calcium 8.9 mg/dL (8.4-10.2); Carbon Dioxide 27 mmol/L (22-30); Chloride 105 mmol/L (98-107); Glucose 152 mg/dL (74-99); Non-African American GFR(MDRD) >60 (>60 ml/min/1.73 sqM); Potassium 4.2 mmol/L (3.5-5.1); Sodium 141 mmol/L (137-145)
[2016-11-17] MEDS: LEVOFLOXACIN 500MG-D5W PMX 500 MG in DEXTROSE/WATER 1 100ML.BAG IVPB SCH (09:55)
--- NOTE | 2016-11-17 10:43 | PN ---
DATE OF SERVICE: 11/16/2016 This 61-year-old woman was admitted with features of colitis. The patient had colonoscopy by Dr. Ponce which showed segment of colitis involving the left colon extending 30 to 60 cm from the anal verge with mild mucosa erythema and friability consistent with colitis. Infectious colitis is not completely excluded. Three polyps in the cecum were also noted with friability also noted. The patient also complained of significant shortness of breath at this time. The patient also had significant wheezing. The patient is using oxygen currently, not using oxygen at home. A chest x-ray has being ordered by me to rule out the possibility of fluid overload, which showed minimal increase in the bronchovascularity only. PAST MEDICAL HISTORY: Reviewed. REVIEW OF SYSTEM: CARDIOVASCULAR: As mentioned earlier. RESPIRATORY: As mentioned earlier. GI: No nausea. : No dysuria. NERVOUS SYSTEM: No numbness or weakness. Current medications are reviewed and include: 1. Tylenol 650 every 6 p.r.n. 2. [place] 10 mg every 4. 3. DuoNeb q.i.d. and p.r.n. 4. Norvasc 5 mg daily. 5. Symbicort. 6. Dilaudid 1 mg every 3 p.r.n. 7. Levaquin 500 mg every 24 hours. 8. Flagyl. 9. Narcan 0.2 every 2 p.r.n. 10. Protonix 40 mg daily. 11. Prednisone 20 daily. 12. Ultram 50 mg p.o. q.i.d. p.r.n. PHYSICAL EXAMINATION: GENERAL: Alert, oriented x3. VITAL SIGNS: Pulse is 84, blood pressure 124/75, respiration 18, temperature 97, pulse ox 97% on room air. HEENT: Conjunctivae normal. Oral mucosa moist. NECK: No JVD. No lymph node enlargement. CARDIOVASCULAR: S1 and S2. LUNGS: Breath sounds are diminished at the bases. Bilateral scattered rhonchi and crackles. Expiratory wheezing also present. Accessory muscles of respirations are acting also. ABDOMEN: Soft, mild diffuse discomfort on palpation lower part of abdomen. No guarding. No rigidity. No mass palpable. EXTREMITIES: No edema, no swelling. NERVOUS SYSTEM: Higher functions as mentioned. LYMPHATICS: No lymph nodes palpable in the neck, axilla or groin. SKIN: No rashes. LABS: WBC 9.46. BMP within normal limits. Albumin 3.1. Clostridium difficile negative. ASSESSMENT: 1. Acute lower GI bleed with possible ischemic colitis or infectious colitis, status post endoscopy. 2. Acute hypoxic respiratory failure. 3. Chronic obstructive pulmonary disease, acute exacerbation. 4. Lower gastrointestinal bleed. 5. Hypertension. 6. History of rheumatoid arthritis. 7. History of chronic constipation. 8. Mild hyponatremia present on admission. 9. Increased MCV. 10. Increased WBC. 11. Hypertension. 13. History of gout. 14. History of degenerative joint disease. 15. History of hysterectomy. 16. Depression. 17. History of nicotine dependence. 18. FULL CODE. RECOMMENDATIONS AND DISCUSSION: This 61-year-old woman who presented with multiple complex medical issues, we will monitor the patient closely, continue the current medications and symptomatic treatment. Will initiate bronchodilators and IV steroids as well. Continue the rest of the medications. Guarded prognosis because of multiple complex medical issues. Further recommendations to follow. See orders for further details. Discussed with staff, discussed with the patient. BECKIE
[2016-11-17 12:01] LABS: Glucose,Whole Blood 130 mg/dL (75-99)
--- NOTE | 2016-11-17 13:09 | P.PN ---
Subjective Principal diagnosis: rectal bleeding admitted with rectal bleeding s/p colonoscopy segmental left colitis and 3 polyps in right colon status post polypectomy x 2 and piece meal removal of large cecal polyp. No active rectal bleeding. Denies N/V. Minimal abdominal discomfort. Objective - Vital Signs Vital signs: Vital Signs Temp 98.1 F 11/17/16 07:00 Pulse 80 11/17/16 12:04 Resp 18 11/17/16 07:00 BP 131/67 11/17/16 07:00 Pulse Ox 95 11/17/16 09:14 Intake & Output 11/16/16 11/17/16 11/17/16 18:59 06:59 18:59 Intake Total 75 Balance 75 Intake: IV 75 Other: Voiding Method Toilet # Voids 3 1 - Constitutional General appearance: Present: obese - EENT Eyes: Present: normal appearance - Neck Neck: Present: normal ROM - Respiratory Respiratory: bilateral: diminished (bases only) - Cardiovascular Rhythm: regular Heart sounds: normal: S1, S2 - Gastrointestinal General gastrointestinal: Present: normal bowel sounds - Psychiatric Psychiatric: Present: A&O x's 3 - Labs CBC & Chem 7: 11/17/16 08:08 11/17/16 08:08 Labs: Abnormal Lab Results - Last 24 Hours (Table) 11/16/16 11/17/16 11/17/16 Range/Units 12:58 07:50 08:08 RBC 3.54 L 3.76 L (3.80-5.40) m/uL MCV 105.5 H 106.5 H (80.0-100.0) fL Lymphocytes # 0.4 L (1.0-4.8) k/uL Glucose (74-99) mg/dL POC Glucose (mg/dL) 136 H (75-99) mg/dL 11/17/16 11/17/16 Range/Units 08:08 11:56 RBC (3.80-5.40) m/uL MCV (80.0-100.0) fL Lymphocytes # (1.0-4.8) k/uL Glucose 152 H (74-99) mg/dL POC Glucose (mg/dL) 130 H (75-99) mg/dL Assessment and Plan (1) GI bleed Narrative/Plan: Rectal bleeding secondary to left colon segmental colitis. Polypectomy x 2 cecal polpys. Piece meal removal of large cecal polyp; pathology pending. C. Difficle negative. Status: Acute (2) Acute colitis Status: Acute (3) History of hemorrhoids Status: Chronic (4) EtOH dependence Status: Chronic (5) Chronic constipation Status: Chronic Plan: 1. Soft diet. 2. RTO 7-10 days. Asessment and plan of care discussed with Dr. Gonzalez.
[2016-11-17 17:30] LABS: Glucose,Whole Blood 186 mg/dL (75-99)
--- NOTE | 2016-11-17 20:56 | PN ---
DATE OF SERVICE: 11/17/2016 This 61 -year-old woman was admitted with acute colitis after colonoscopy also had COPD exacerbation, patient is on IV steroids and other medications. Patient feeling slightly better. No chest pain or palpitations. No fever. On exam, alert and oriented times three. Pulse 80. Blood pressure 127/70, respiration 18, temperature 98.2, pulse ox 97% on 2 L. HEENT: Conjunctivae normal. NECK: No jugular venous distention. CARDIOVASCULAR: S1, S2 muffled. RESPIRATORY: Breath sounds diminished at the bases. A few scattered rhonchi and crackles. Abdomen is soft. Nontender. No mass palpable. LEGS: No edema. No swelling. Nervous system: Higher functions as mentioned earlier. Moves all four limbs. No focal deficits. LYMPHATICS: No lymph nodes palpable in the neck, axillae or groin. SKIN: No ulcer, rash or bleeding. LABS: WBC 12.5, hemoglobin 12.6, glucose 130. ASSESSMENT: 1. Acute lower gastrointestinal bleed with possible ischemic colitis, infectious colitis, status post colonoscopy. 2. Acute hypoxic respiratory failure secondary to chronic obstructive pulmonary disease, acute exacerbation. 3. Lower gastrointestinal bleed. 4. Hypertension. 5. History of rheumatoid arthritis. 6. History of chronic constipation. 7. Mild hyponatremia, present on admission. 8. Increased MCV. 9. Increased WBC. 10. Hypertension. 11. History of gout. 12. History of degenerative joint disease. 13. History of hysterectomy. 14. Depression. 15. History of nicotine dependence. 16. FULL CODE. ASSESSMENT: In this 61-year-old woman who presented with multiple complex medical issues, we will monitor the patient closely, continue the continue medications, continue symptomatic treatment. Continue with bronchodilators, taper steroids. Increase ambulation. Guarded prognosis. Further recommendations to follow. MTDD
[2016-11-17 21:45] LABS: Glucose,Whole Blood 150 mg/dL (75-99)
[2016-11-18] MEDS: metroNIDAZOLE-NS PMX 500 MG in SALINE 1 100ML.BAG IVPB SCH ×3 (00:01→16:25)
[2016-11-18] MEDS: HYDROcodone/APAP 10-325MG 1 EACH TAB PO PRN ×5 (00:01→20:48)
[2016-11-18] MEDS: MELATONIN 3 MG TABLET PO PRN (00:02)
[2016-11-18] MEDS: methylPREDNISolone SOD SUCCI 40 MG/ML 1 ML VIAL IV SCH ×4 (05:48→17:38)
[2016-11-18] MEDS: IPRATROPIUM 0.5 MG/2.5 ML NEBU INHALATION SCH (05:56)
[2016-11-18] MEDS: LEVALBUTEROL NEB (CONC) 1.25 MG/0.5 ML AMP INHALATION SCH (05:56)
[2016-11-18] MEDS: BUDESONIDE 1 MG/2 ML NEBU INHALATION SCH ×2 (07:21→18:47)
[2016-11-18] MEDS: FORMOTEROL FUMARATE 20 MCG/2 ML NEBU INHALATION SCH ×2 (07:21→18:47)
[2016-11-18 07:42] LABS: Glucose,Whole Blood 138 mg/dL (75-99)
[2016-11-18] MEDS: LISINOPRIL 20 MG TAB PO SCH (07:42)
[2016-11-18] MEDS: PANTOPRAZOLE 40 MG TABLET PO SCH (07:42)
[2016-11-18] MEDS: INSULIN LISPRO (humaLOG) 300 UNIT/3 ML VIAL SQ SCH ×4 (07:42→20:54)
[2016-11-18] MEDS: amLODIPine 5 MG TAB PO SCH (07:42)
[2016-11-18] MEDS: LEVOFLOXACIN 500MG-D5W PMX 500 MG in DEXTROSE/WATER 1 100ML.BAG IVPB SCH (09:53)
[2016-11-18] MEDS: IPRATROPIUM-ALBUTEROL 3 ML NEB INHALATION SCH ×3 (10:56→18:46)
[2016-11-18 11:42] LABS: Glucose,Whole Blood 149 mg/dL (75-99)
[2016-11-18] MEDS ORDERED: FUROSEMIDE 20 MG TAB PO STA (13:14)
[2016-11-18 17:16] LABS: Glucose,Whole Blood 152 mg/dL (75-99)
--- NOTE | 2016-11-18 19:12 | PN ---
DATE OF SERVICE: 11/18/2016 This 61-year-old woman who was admitted with acute lower GI bleeding, also had a possible ischemic colitis. Patient also had significant chronic obstructive pulmonary disease acute exacerbation, also. Breathing is slightly better today. No chest pain. No palpitations. No fever. On exam, alert and oriented x3. Pulse 84, blood pressure 130/69, respirations 16, temperature 96.8, pulse ox 96% on 2-L. HEENT: Conjunctivae normal. NECK: No jugular venous distention. CARDIOVASCULAR: S1 and S2, muffled. RESPIRATORY: Breath sounds diminished at the bases. A few scattered rhonchi and crackles. Expiratory wheezing also present. ABDOMEN: Soft, nontender. LEGS: No edema, no swelling. NERVOUS SYSTEM: No focal deficits. LABS: WBC 5, hemoglobin is 12.7, glucose 149. ASSESSMENT: 1. Acute lower GI bleed with possible ischemic colitis and infectious colitis, status post colonoscopy. 2. Chronic obstructive pulmonary disease, acute exacerbation, with acute hypoxic respiratory failure. 3. Lower gastrointestinal bleed. 4. Hypertension. 5. Rheumatoid arthritis. 6. History of chronic constipation. 7. Mild hyponatremia present on admission. 8. Possibly hypovolemic. 9. Increased MCV. 10. Increased WBC. 11. Hypertension. 12. History of gout. 13. History of degenerative joint disease. 14. History of hysterectomy. 15. Depression. 16. History nicotine dependence. 17. FULL CODE. RECOMMENDATIONS AND DISCUSSION: This 61-year-old woman who presented with multiple complex medical issues, will monitor the patient closely. Continue the current medications. Continue symptomatic treatment. Cutdown the dose of steroids. Continue with the bronchodilators. Continue to monitor. Further recommendations to follow.
[2016-11-18 21:26] LABS: Glucose,Whole Blood 165 mg/dL (75-99)
[2016-11-19] MEDS: metroNIDAZOLE-NS PMX 500 MG in SALINE 1 100ML.BAG IVPB SCH ×4 (00:10→23:06)
[2016-11-19] MEDS: methylPREDNISolone SOD SUCCI 40 MG/ML 1 ML VIAL IV SCH ×4 (00:10→21:40)
[2016-11-19] MEDS: MELATONIN 3 MG TABLET PO PRN (01:09)
[2016-11-19] MEDS: HYDROcodone/APAP 10-325MG 1 EACH TAB PO PRN ×5 (01:48→23:05)
[2016-11-19] MEDS: IPRATROPIUM-ALBUTEROL 3 ML NEB INHALATION SCH ×5 (03:46→20:57)
[2016-11-19] MEDS: INSULIN LISPRO (humaLOG) 300 UNIT/3 ML VIAL SQ SCH ×4 (07:36→21:39)
[2016-11-19] MEDS: BUDESONIDE 1 MG/2 ML NEBU INHALATION SCH ×2 (07:36→20:57)
[2016-11-19] MEDS: amLODIPine 5 MG TAB PO SCH (07:36)
[2016-11-19] MEDS: PANTOPRAZOLE 40 MG TABLET PO SCH (07:36)
[2016-11-19] MEDS: LISINOPRIL 20 MG TAB PO SCH (07:36)
[2016-11-19] MEDS: FORMOTEROL FUMARATE 20 MCG/2 ML NEBU INHALATION SCH ×2 (07:36→20:57)
[2016-11-19 07:57] LABS: Glucose,Whole Blood 130 mg/dL (75-99)
[2016-11-19 08:22] LABS: Basophils % (A) 0 %; CH 33.9; CHCM 32.4; Eosinophils % (A) 0 %; HCT 38.9 % (34.0-46.0); HGB 12.3 gm/dL (11.4-16.0); Luc # (Auto) 0.05; Luc % (Auto) 1; Lymphocytes # (A) 0.6 k/uL (1.0-4.8); Lymphocytes % (A) 7 %; MCH 33.2 pg (25.0-35.0); MCHC 31.6 g/dL (31.0-37.0); Macrocytosis Slight; Mean Platelet Volume 7.3; Monocytes # (A) 0.2 k/uL (0-1.0); Monocytes % (A) 2 %; Neutrophils # (A) 7.6 k/uL (1.3-7.7); Neutrophils % (A) 90 %; RBC 3.71 m/uL (3.80-5.40); RDW 12.2 % (11.5-15.5); WBC 8.5 k/uL (3.8-10.6); WBC (Perox) 8.66
[2016-11-19 08:43] LABS: Anion Gap 7 mmol/L; Blood Urea Nitrogen 22 mg/dL (7-17); Calcium 8.7 mg/dL (8.4-10.2); Carbon Dioxide 31 mmol/L (22-30); Chloride 103 mmol/L (98-107); Glucose 131 mg/dL (74-99); Non-African American GFR(MDRD) >60 (>60 ml/min/1.73 sqM); Potassium 4.1 mmol/L (3.5-5.1); Sodium 141 mmol/L (137-145)
[2016-11-19] MEDS: LEVOFLOXACIN 500MG-D5W PMX 500 MG in DEXTROSE/WATER 1 100ML.BAG IVPB SCH (08:46)
[2016-11-19 12:00] LABS: Glucose,Whole Blood 153 mg/dL (75-99)
[2016-11-19 16:45] LABS: Glucose,Whole Blood 160 mg/dL (75-99)
[2016-11-19] MEDS: FUROSEMIDE 10 MG/ML 4 ML VIAL IV SCH (18:09)
[2016-11-19 21:46] LABS: Glucose,Whole Blood 115 mg/dL (75-99)
--- NOTE | 2016-11-19 21:59 | PN ---
DATE OF SERVICE: 11/19/2016 This 61 -year-old woman was admitted to the hospital with acute lower gastrointestinal bleeding, possibly colitis, also had a chronic obstructive pulmonary disease exacerbation. The patient also complaining of generalized edema. No chest pain. No palpitation. No fever. On exam, alert and oriented times three. Pulse 88, blood pressure 131/56, respirations 18, temperature 97.8, pulse ox 98% on 2 liters. HEENT: Conjunctivae normal. NECK: No jugular venous distention. CARDIOVASCULAR: S1, S2 muffled. RESPIRATORY: Breath sounds diminished at the bases. A few scattered rhonchi and crackles. Expiratory wheezing also present. ABDOMEN: Soft, nontender. Legs no edema. No swelling. CENTRAL NERVOUS SYSTEM: No focal deficits. Labs at this time show WBC 8.5, hemoglobin is 12.3, glucose 153. ASSESSMENT: 1. Acute lower gastrointestinal bleeding with possible ischemic colitis, infectious colitis, status post colonoscopy. 2. Chronic obstructive pulmonary disease acute exacerbation, with acute hypoxic respiratory failure. 3. Lower gastrointestinal bleed. 4. Hypertension. 5. History of rheumatoid arthritis. 6. History of chronic constipation. 7. Mild hyponatremia present on admission, possibly hypovolemic. 8. Increased MCV. 9. Increased WBC. 10. Hypertension. 11. History of gout. 12. History of degenerative joint disease. 13. History of hysterectomy. 14. History of depression. 15. History of nicotine dependence. 16. FULL CODE. RECOMMENDATIONS AND DISCUSSION: This 61-year-old woman who presented with multiple complex medical issues, we will monitor the patient closely. Continue current medications. Continue symptomatic treatment. Otherwise, continue the bronchodilators. Taper the steroids. Guarded prognosis because of multiple complex medical issues. Further recommendations to follow.
[2016-11-20] MEDS: MELATONIN 3 MG TABLET PO PRN (02:02)
[2016-11-20] MEDS: HYDROcodone/APAP 10-325MG 1 EACH TAB PO PRN ×3 (03:41→14:21)
[2016-11-20] MEDS: IPRATROPIUM-ALBUTEROL 3 ML NEB INHALATION SCH ×2 (04:32→14:13)
[2016-11-20 07:45] LABS: Glucose,Whole Blood 129 mg/dL (75-99)
[2016-11-20 08:01] VITALS: BP 133/80; RESP 16; TEMP 97.2
[2016-11-20] MEDS: INSULIN LISPRO (humaLOG) 300 UNIT/3 ML VIAL SQ SCH ×2 (08:02→13:50)
[2016-11-20] MEDS: amLODIPine 5 MG TAB PO SCH (08:36)
[2016-11-20] MEDS: FUROSEMIDE 10 MG/ML 4 ML VIAL IV SCH (08:36)
[2016-11-20] MEDS: PANTOPRAZOLE 40 MG TABLET PO SCH (08:36)
[2016-11-20] MEDS: LISINOPRIL 20 MG TAB PO SCH (08:36)
[2016-11-20] MEDS: metroNIDAZOLE-NS PMX 500 MG in SALINE 1 100ML.BAG IVPB SCH (08:36)
[2016-11-20] MEDS: methylPREDNISolone SOD SUCCI 40 MG/ML 1 ML VIAL IV SCH (08:37)
[2016-11-20] MEDS: FORMOTEROL FUMARATE 20 MCG/2 ML NEBU INHALATION SCH (09:27)
[2016-11-20] MEDS: BUDESONIDE 1 MG/2 ML NEBU INHALATION SCH (09:27)
[2016-11-20 09:31] VITALS: PULSE 80
[2016-11-20 10:09] LABS: Basophils % (A) 0 %; CHCM 32.5; Eosinophils % (A) 0 %; HCT 41.3 % (34.0-46.0); HDW 2.09; HGB 13.2 gm/dL (11.4-16.0); Luc # (Auto) 0.06; Luc % (Auto) 1; Lymphocytes # (A) 0.7 k/uL (1.0-4.8); Lymphocytes % (A) 8 %; MCH 33.5 pg (25.0-35.0); MCHC 31.9 g/dL (31.0-37.0); Macrocytosis Slight; Mean Platelet Volume 7.4; Monocytes # (A) 0.4 k/uL (0-1.0); Monocytes % (A) 4 %; Neutrophils % (A) 88 %; RBC 3.93 m/uL (3.80-5.40); RDW 12.2 % (11.5-15.5); WBC 9.1 k/uL (3.8-10.6)
[2016-11-20 10:32] LABS: Anion Gap 9 mmol/L; Blood Urea Nitrogen 26 mg/dL (7-17); Calcium 8.7 mg/dL (8.4-10.2); Carbon Dioxide 31 mmol/L (22-30); Chloride 101 mmol/L (98-107); Glucose 134 mg/dL (74-99); Non-African American GFR(MDRD) >60 (>60 ml/min/1.73 sqM); Potassium 3.8 mmol/L (3.5-5.1); Sodium 141 mmol/L (137-145)
[2016-11-20] MEDS: LEVOFLOXACIN 500MG-D5W PMX 500 MG in DEXTROSE/WATER 1 100ML.BAG IVPB SCH (10:48)
[2016-11-20 12:04] LABS: Glucose,Whole Blood 112 mg/dL (75-99)
--- NOTE | 2016-11-21 16:46 | DS ---
DATE OF ADMISSION: 11/15/2016 DATE OF DISCHARGE: 11/20/2016 FINAL DIAGNOSES: 1. Acute lower gastrointestinal bleeding with possible ischemic colitis, infectious colitis, status post colonoscopy. 2. Chronic obstructive pulmonary disease, acute exacerbation, with acute hypoxic respiratory failure. 3. Lower gastrointestinal bleed. 4. Hypertension. 5. History of rheumatoid arthritis. 6. History of chronic constipation. 7. Mild hyponatremia present on admission, possibly hypovolemic. 8. Increased MCV. 9. Increased WBC. 10. Hypertension. 11. History of gout. 12. History of degenerative joint disease. 13. History hysterectomy. 14. History of depression. 15. History of nicotine dependence. 16. FULL CODE. DISCHARGE DISPOSITION: The patient will be discharged in a stable condition with guarded prognosis. HISTORY OF PRESENT ILLNESS: This 61-year-old woman with past medical history of multiple medical problems as mentioned earlier was admitted with acute lower GI bleed and possibly infectious and ischemic colitis. The patient was treated symptomatically. Patient improved significantly. The colonoscopy with biopsies were showing tubular adenoma and possible ischemic colitis also. The patient was treated with empiric antibiotics. The patient improved significantly. Patient also had COPD. Overall, patient made significant improvement. On exam, vitals are stable. CARDIOVASCULAR SYSTEM: S1, S2 muffled. RESPIRATORY: A few rhonchi. ABDOMEN: Soft, nontender. NERVOUS SYSTEM: No focal deficit. DISCHARGE ADVICE: 1. Diet is cardiac. 2. Activity limited until follow-up. 3. Follow up with Dr. Mijares 2 to 3 days. 4. Follow with Dr. Ponce as advised. MEDICATIONS: 1. ProAir 1 puff q.i.d. p.r.n. 2. Benazepril 20 mg q.a.m. 3. Symbicort 2 puffs b.i.d. 4. Cipro 500 mg p.o. b.i.d. for 5 days. 5. Dextroamphetamine amphetamine 50 mg p.o. q.a.m. 6. Enbrel 50 mg subcu as before. 7. Hydrocodone one p.o. t.i.d. p.r.n. 8. Albuterol Atrovent nebulizer q.i.d. and p.r.n. 9. Norvasc 5 mg q.a.m. 10. Medrol Dosepak as recommend. 11. Flagyl 500 mg p.o. t.i.d. for 5 days. Once again, the patient will be discharged in a stable condition with guarded prognosis.
== END 2016-11-20 14:52 | disposition home or self-care (01) | DRG 393 ==
LOC: EC 14:25 → 4MS4W 18:04 → OBSVTOIN 11-15 11:56
PROVIDERS: ADMIT Internal Medicine; ATTEND Internal Medicine
PROC: 0DBK8ZX Excision of Ascending Colon, Via Natural or Artificial Opening Endoscopic, Diagnostic (ICD-10-PCS; 2016-11-16)
PROC: 0DBH8ZX Excision of Cecum, Via Natural or Artificial Opening Endoscopic, Diagnostic (ICD-10-PCS; 2016-11-16)
PROC: 0DBM8ZX Excision of Descending Colon, Via Natural or Artificial Opening Endoscopic, Diagnostic (ICD-10-PCS; principal; 2016-11-16 12:15)
PROC: 0DBN8ZX Excision of Sigmoid Colon, Via Natural or Artificial Opening Endoscopic, Diagnostic (ICD-10-PCS; 2016-11-16 12:15)
DX: K55.9 Vascular disorder of intestine, unspecified (principal); J96.01 Acute respiratory failure with hypoxia; A09 Infectious gastroenteritis and colitis, unspecified; E87.1 Hypo-osmolality and hyponatremia; J44.1 Chronic obstructive pulmonary disease with (acute) exacerbation; E86.1 Hypovolemia; D12.0 Benign neoplasm of cecum; F10.20 Alcohol dependence, uncomplicated; F32.9 Major depressive disorder, single episode, unspecified; I10 Essential (primary) hypertension; K59.09 Other constipation; M06.9 Rheumatoid arthritis, unspecified; M10.9 Gout, unspecified; M19.90 Unspecified osteoarthritis, unspecified site; M81.0 Age-related osteoporosis without current pathological fracture; D12.2 Benign neoplasm of ascending colon; E66.9 Obesity, unspecified; F12.90 Cannabis use, unspecified, uncomplicated; K64.9 Unspecified hemorrhoids; Z85.44 Personal history of malignant neoplasm of other female genital organs; Z87.891 Personal history of nicotine dependence; Z96.651 Presence of right artificial knee joint; Z79.899 Other long term (current) drug therapy; Z88.8 Allergy status to other drugs, medicaments and biological substances; Z68.29 Body mass index [BMI] 29.0-29.9, adult
CPT/HCPCS: 36415; 45380; 45385; 71010; 74000; 74177; 80048; 80053; 80299; 81001; 82272; 83036; 85025; 85610; 85730; 87045; 87046; 88305; 89055; 94640; 94760; 96361; 96365; 96366; 96367; 96375; 96376; 99153; 99285

== ENCOUNTER → 2016-11-22 | Outpatient (CLI) | payer MEDICARE ==
[2016-11-22 14:39] LABS: Basophils % (A) 0 %; CH 34.1; CHCM 32.8; Eosinophils # (A) 0.1 k/uL (0-0.7); Eosinophils % (A) 1 %; HCT 43.2 % (34.0-46.0); HDW 2.08; HGB 13.9 gm/dL (11.4-16.0); Luc # (Auto) 0.09; Luc % (Auto) 1; Lymphocytes # (A) 1.1 k/uL (1.0-4.8); Lymphocytes % (A) 8 %; MCH 33.7 pg (25.0-35.0); MCHC 32.2 g/dL (31.0-37.0); MCV 104.4 fL (80.0-100.0); Macrocytosis Slight; Monocytes # (A) 0.7 k/uL (0-1.0); Monocytes % (A) 5 %; Neutrophils # (A) 10.9 k/uL (1.3-7.7); Neutrophils % (A) 85 %; RBC 4.13 m/uL (3.80-5.40); RDW 12.4 % (11.5-15.5); WBC 12.9 k/uL (3.8-10.6); WBC (Perox) 13.74
[2016-11-22 14:58] LABS: Anion Gap 6 mmol/L; Blood Urea Nitrogen 22 mg/dL (7-17); Calcium 8.9 mg/dL (8.4-10.2); Carbon Dioxide 34 mmol/L (22-30); Chloride 97 mmol/L (98-107); Glucose 99 mg/dL (74-99); Non-African American GFR(MDRD) >60 (>60 ml/min/1.73 sqM); Potassium 4.4 mmol/L (3.5-5.1); Sodium 137 mmol/L (137-145)
== END | disposition home or self-care (01) ==
LOC: LABWHC1 14:21
PROVIDERS: ATTEND Hospitalist
DX: K52.9 Noninfective gastroenteritis and colitis, unspecified (principal)
CPT/HCPCS: 36415; 80048; 85025

== ENCOUNTER 2016-12-29 21:56 | Emergency (ER) | payer MEDICARE ==
[2016-12-29 22:07] VITALS: TEMP 98.2
[2016-12-29] MEDS ORDERED: DIPH,PERTUS(ACELL)TETVAC-LF 0.5 ML VIAL IM ONE (22:19)
--- NOTE | 2016-12-29 22:24 | ED ---
Wound/Laceration HPI - General Chief Complaint: Wound/Laceration Stated Complaint: L leg laceration Time Seen by Provider: 12/29/16 22:10 Source: patient, RN notes reviewed Mode of arrival: wheelchair Limitations: no limitations - History of Present Illness Initial Comments: Patient is a 60-year-old female presents to the emergency room for evaluation of left howard laceration. Patient states she tripped and fell hitting her howard against the step of a car earlier this evening. Patient denies taking blood thinners. Patient denies any other injuries during incident. Patient states she does not remember when her last tetanus vaccine was. Patient denies any numbness or tingling in her toes. Patient states having 10 out of 10 pain at the laceration area. Patient denies any other injuries during incident. - Related Data Home Medications Medication Instructions Recorded Confirmed Benazepril HCl 20 mg PO QAM 01/24/16 12/29/16 Hydrocodone/Acetaminophen 1 tab PO BID PRN 01/24/16 12/29/16 [Hydrocodon-Acetaminophn 10-325] amLODIPine BESYLATE [Amlodipine 5 mg PO QAM 01/24/16 12/29/16 Besylate] Albuterol Sulfate [Proair Hfa] 1 puff INHALATION RT-Q6H PRN 08/15/16 12/29/16 Budesonide/Formoterol Fumarate 2 puff INHALATION RT-BID 11/13/16 12/29/16 [Symbicort 160-4.5 Mcg Inhaler] Dextroamphetamine/Amphetamine 15 mg PO QAM 11/13/16 12/29/16 [Adderall Xr] Etanercept [Enbrel] 50 mg SQ DIRECTED 11/13/16 12/29/16 Previous Rx's Medication Instructions Recorded Ciprofloxacin HCl [Cipro] 500 mg PO Q12HR #10 tablet 11/20/16 Ipratropium-Albuterol Nebulize 3 ml INHALATION RT-QID #1 11/20/16 [Duoneb 0.5 mg-3 mg/3 ml Soln] methylPREDNISolone Dose Pack 4 mg PO DIRECTED #21 package 11/20/16 [Medrol Dose Pack] Allergies Allergy/AdvReac Type Severity Reaction Status Date / Time infliximab [From Remicade] Allergy Dyspnea/HIV Verified 12/29/16 22:07 ES propoxyphene HCl Allergy Unknown [facility]29[facility]16 22:07 [facility] Review of Systems ROS Statement: Those systems with pertinent positive or pertinent negative responses have been documented in the HPI. ROS Other: All systems not noted in ROS Statement are negative. Past Medical History Past Medical History: Cancer, COPD, Hypertension, Pneumonia, Rheumatoid Arthritis (RA) Additional Past Medical History / Comment(s): HX RECTAL BLEEDING, CA VULVA, UTI, COLITIS,POLYPS(BENIGN),GOUT,OSTEOPOROSIS,SINUS/SEASONAL ALLERGIES History of Any Multi-Drug Resistant Organisms: None Reported Past Surgical History: Hysterectomy, Joint Replacement Additional Past Surgical History / Comment(s): RT KNEE REPLACEMENT, SX TO REMOVE CANCER VULVA,EGD,COLONOSCOPY, LASIK EYE SX Past Anesthesia/Blood Transfusion Reactions: No Reported Reaction Additional Past Anesthesia/Blood Transfusion Reaction / Comment(s): CLAUSTERPHOBIA Past Psychological History: Depression Additional Psychological History / Comment(s): PT STATEED OCC MILD DEPRESSION NO THOUGHTS OF HARMING SELF Smoking Status: Former smoker Past Alcohol Use History: Daily Additional Past Alcohol Use History / Comment(s): STATES QUIT SMOKING IN 1999, SMOKED 2 PPD SINCE AGE 12, STATES DRINKS 2-3 DRINKS A NIGHT(VODKA MIXED WITH BA AID Past Drug Use History: None Reported Additional Drug Use History / Comment(s): PAST OCC MARIJUANA- QUIT - Past Family History Father Family Medical History: Cancer Additional Family Medical History / Comment(s): COLON Mother Family Medical History: Cancer Additional Family Medical History / Comment(s): ESOPHAGUS Sister(s) Family Medical History: Cancer Additional Family Medical History / Comment(s): CERVICAL General Exam - General Exam Comments Initial Comments: Sitting in exam room in no acute distress. Limitations: no limitations General appearance: alert, in no apparent distress Head exam: Present: atraumatic, normocephalic, normal inspection Eye exam: Present: normal appearance ENT exam: Present: normal exam Neck exam: Present: normal inspection Respiratory exam: Absent: respiratory distress Left Knee exam: Present: normal inspection Lower Leg exam: Present: tenderness (On palpating over the laceration area), laceration (5cm laceration over the proximal anterior howard) Ankle exam: Present: normal inspection Neurovascular tendon exam: Present: no vascular compromise. Absent: pulse deficit (2+ dorsal pedal and posterior tibial pulses), abnormal cap refill ( capillary refill less than 2 seconds) Back exam: Present: normal inspection Neurological exam: Present: alert, oriented X3, CN II-XII intact Psychiatric exam: Present: normal affect, normal mood Skin exam: Present: warm, dry. Absent: rash Course Vital Signs 12/29/16 12/29/16 22:06 23:58 Temperature 98.2 F Pulse Rate 78 76 Respiratory 20 22 Rate Blood Pressure 125/75 133/65 O2 Sat by Pulse 98 96 Oximetry Procedures - Laceration Laceration #1 Consent Obtained: verbal consent Indication: laceration Site: other (left anterior howard) Size (cm): 5 Description: linear Depth: simple, single layer Anesthetic Used: lidocaine 1% Anesthesia Technique: local infiltration Amount (mls): 8 Pre-repair: irrigated extensively Type of Sutures: nylon Size of Sutures: 3-0 Number of Sutures: 14 Technique: simple, interrupted Patient Tolerated Procedure: well, no complications Medical Decision Making - Medical Decision Making Patient is a 61-year-old female presents to the emergency room for evaluation of left howard laceration. Patient was updated on her tetanus vaccine. Laceration repaired with sutures. Patient handled procedure well. Advised patient to be reevaluated by her primary care provider on Sunday to check on healing of wound area. Patient states she understands everything that was discussed with her. Return parameters discussed. - Radiology Data Radiology results: report reviewed, image reviewed Disposition Clinical Impression: Laceration of left lower leg, Hematoma of skin Disposition: HOME SELF-CARE Condition: Good Instructions: Laceration (ED), Care For Your Stitches (ED), Hematoma (ED) Additional Instructions: Rest, ice and elevate. Do not get suture area wet. Clean suture area with a damp cloth. Take Tylenol or Motrin as needed for pain. Please follow up with primary care provider on Sunday for reevaluation of suture area. Please return in 12-14 days for suture removal. If any new symptom arises or symptoms worsen, return to ER as soon as possible. Referrals: Meryl Mijares MD [Primary Care Provider] - 1-2 days Time of Disposition: 23:37
--- NOTE | 2016-12-29 22:41 | XR ---
EXAM: XR Left Tibia and Fibula, 2 Views. CLINICAL HISTORY: Pain TECHNIQUE: Frontal and lateral views of the left tibia and fibula. COMPARISON: No relevant prior studies available. FINDINGS: Bones/joints: Sclerotic changes with poorly defined border in medial and lateral femoral condyle, nonspecific. Mild osteoarthritic changes of the knee. No fracture or dislocation. Soft tissues: Laceration and associated surrounding soft tissue swelling in the anterior proximal lower leg. No radiopaque foreign object. IMPRESSION: 1. Laceration and associated surrounding soft tissue swelling in the anterior proximal lower leg. No radiopaque foreign object. Please correlate clinically. 2. Sclerotic changes with poorly defined border in medial and lateral femoral condyle, nonspecific. Neoplastic etiologies cannot be excluded.
[2016-12-29 23:59] VITALS: BP 133/65; PULSE 76; RESP 22
== END 2016-12-29 23:57 | disposition home or self-care (01) ==
LOC: EC 21:56
DX: S81.812A Laceration without foreign body, left lower leg, initial encounter (principal); W01.0XXA Fall on same level from slipping, tripping and stumbling without subsequent striking against object, initial encounter; I10 Essential (primary) hypertension; J44.9 Chronic obstructive pulmonary disease, unspecified; Z87.891 Personal history of nicotine dependence; Z23 Encounter for immunization; Z88.5 Allergy status to narcotic agent; Z88.8 Allergy status to other drugs, medicaments and biological substances; Z79.51 Long term (current) use of inhaled steroids
CPT/HCPCS: 12002; 90471; 90715; 99283

== ENCOUNTER 2017-02-07 07:15 | Day surgery (SDC) | payer MEDICARE ==
[2017-02-02 12:41] VITALS: BMI 30.5
[~2017-02-07 07:15] MED LIST: LACTATED RINGERS 1,000 ML IV SCH
[2017-02-07 07:44] VITALS: TEMP 97.6
[2017-02-07] MEDS ORDERED: LIDOCAINE 1% 20 ML VIAL (10MG/ML) FOR IV START INTRADERMA ONE (07:55)
[2017-02-07] MEDS ORDERED: PROPOFOL 10 MG/ML 20 ML VIAL IV ONE (08:09)
[2017-02-07] MEDS ORDERED: LIDOCAINE 1% INJ 10MG/ML (20 ML MDV) ONE (08:09)
[2017-02-07 08:44] VITALS: RESP 16
--- NOTE | 2017-02-07 08:47 | P.PCN ---
Date of Procedure: 02/07/17 Procedure(s) Performed: BRIEF HISTORY: Patient is a 61-year-old pleasant white female, scheduled for an elective colonoscopy as a part of surveillance of her colon polyps that were noted on a recent colonoscopy in October 2016 at which time the patient was admitted hospital with acute lower GI bleed and was diagnosed with ischemic colitis. She was also noted to have a large 3-4 cm broad-based polyp in the cecum which was partially removed. Biopsies revealed tubular villous adenoma. She is scheduled for a repeat colonoscopy in attempt for complete endoscopy polypectomy today. PROCEDURE PERFORMED: Colonoscopy with snare polypectomy. PREOPERATIVE DIAGNOSIS: Follow-up large cecal polyp noted on recent colonoscopy in October 2069. IV sedation per Anesthesia. PROCEDURE: After informed consent was obtained, the patient, was brought into the endoscopy unit. IV conscious sedation was administered by Anesthesia under continuous monitoring. Initially the Olympus CF-160 flexible video colonoscope was then inserted in the rectum, gradually advanced into the cecum without any difficulty. Careful examination was performed as the scope was gradually being withdrawn. Ileocecal valve and the appendiceal orifice were visualized and appeared normal. Prep was excellent. In the base of the cecum just inferior to the ileocecal valve was again there was a 3-4 cm linear broad-based polyp identified and this time attempts at snare polypectomy. 50% of the polyp was removed and subsequently this despite multiple attempts an extremely difficult position I was not able to remove the rest of the polyp completely. Mucosa of the cecum, ascending colon, appeared normal. In the transverse colon there was a 1 cm polyp that was removed by snare polypectomy. Rest of the transverse colon, descending colon, sigmoid colon, and rectum appeared normal. Retroflexion was performed in the rectum and small internal hemorrhoids were seen. The patient tolerated the procedure well. IMPRESSION: 3-4 cm linear broad-based cecal polyp just inferior to the ileocecal valve status post partial snare polypectomy as described above 1 cm transverse colon polyp serous was snare polypectomy Small internal hemorrhoids. RECOMMENDATIONS: Findings of this examination were discussed with the patient as well as a family. She will be seen in office in 2-3 weeks to discuss the biopsy results. She will be a candidate for the surgical resection as the polyp could not be removed completely.
[2017-02-07 09:08] VITALS: BP 122/66; PULSE 70
== END 2017-02-07 09:46 | disposition home or self-care (01) ==
LOC: ORWHC2ENDO 07:15
PROVIDERS: ATTEND Internal Medicine Gastroenterology
DX: Z12.11 Encounter for screening for malignant neoplasm of colon (principal); D12.0 Benign neoplasm of cecum; D12.3 Benign neoplasm of transverse colon; K64.8 Other hemorrhoids; Z86.010 Personal history of colon polyps; Z87.19 Personal history of other diseases of the digestive system; I10 Essential (primary) hypertension; J44.9 Chronic obstructive pulmonary disease, unspecified; Z79.899 Other long term (current) drug therapy; Z88.5 Allergy status to narcotic agent; Z88.8 Allergy status to other drugs, medicaments and biological substances
CPT/HCPCS: 88305; 45385; J2001; J2704

== ENCOUNTER → 2017-05-22 | Outpatient (CLI) | payer MEDICARE ==
--- NOTE | 2017-05-22 17:05 | BD ---
EXAMINATION TYPE: MG DEXA axial skeleton. DATE OF EXAM: 05/22/2017 COMPARISON: NONE CLINICAL HISTORY: 62-year-old female postmenopausal screening Height: 61 IN Weight: 154 LBS FRAX RISK QUESTIONS: Alcohol (3 or more units per day): NO Family History (Parent hip fracture): NO Glucocorticoids (More than 3mos): NO (Ex: prednisone, prednisolone, methylprednisolone, dexamethasone, and hydrocortisone). History of Fracture in Adulthood: NO Secondary Osteoporosis: 1. Type 1 Diabetes: NO 2. Hyperthyroidism: NO 3. Menopause before 45: YES AGE 27 4. Malnutrition: NO 5. Chronic liver disease: NO Rheumatoid Arthritis: YES Current Tobacco Use: NO RISK FACTORS HISTORY OF: Family History of Osteoporosis: YES GRANDMOTHER Active: YES Diet low in dairy products/other sources of calcium: YES Postmenopausal woman: AGE 27 MEDICATIONS: Additional Medications: BLOOD PRESSURE, SINGULAIR, DEFICIT PILL, NORCO, EXAM MEASUREMENTS: Bone mineral densitometry was performed using the [employer] System. Bone mineral density as measured about the Lumbar spine is: ----- L1-L4(G/cm2): 0.993 T Score Values are as follows: ----- L2: -1.9 ----- L3: -1.0 ----- L4: -1.9 ----- L1-L4: -1.6 Bone mineral density has: Decreased -4.2% since study of: 10/16/2012 Bone mineral density about the R hip (g/cm2): 0.808 Bone mineral density about the L hip (g/cm2): 0.831 T Score values are as follows: -----R Neck: -1.7 -----L Neck: -1.5 -----R Total: -1.7 -----L Total: -1.5 Bone mineral density has: Decreased -1.1% since study of: 10/16/2012 IMPRESSION: Osteopenia (T Score between -2.5 and -1 as noted by T score values There is slightly increased risk of fracture and the patient may be considered for treatment. Re-Screen 2-5 years. NOTE: T-SCORE=SD OF THE YOUNG ADULT MEAN.
--- NOTE | 2017-05-23 15:21 | WWHP ---
CHIEF COMPLAINT: The patient is here for her routine gynecologic exam and mammogram. HPI: This is a 62-year-old G0 with an LMP of 1983. She is status post TAD and unilateral oophorectomy for benign reasons. The patient noticed a small lump on her mons pubis about 1 year ago and thinks this has gotten slightly larger. There is no significant pain. She does have a history of vulvar cancer and is status post partial vulvectomy in 2000. She did not require any adjuvant therapy at that time. She has noticed intermittent blood from the rectal area. She has had numerous colonoscopies and apparently colon polyps were noted. She is scheduled for some type of bowel resection surgery on 07/13/[address] Burger. She is not sexually active. PAST MEDICAL HISTORY: Chronic hypertension, chronic obstructive pulmonary disease, attention deficit disorder, rheumatoid arthritis. MEDICATIONS: Amlodipine vacillate 5 mg daily, benazepril 20 mg daily, D amphetamine salt 15 mg daily, [place] 10/325 p.r.n., Enbrel p.r.n., ProAir HFA 90 mg inhaler p.r.n., ipratropium bromide and albuterol sulfate, nebulizer as needed, Perforomist nebulizer every morning, budesonide nebulizer in the morning , furosemide 40 mg p.r.n., montelukast sodium 10 mg daily, polyethylene glycol 3350 taken daily. ALLERGIES: REMICADE. PAST SURGICAL HISTORY: 1983 TAD with unilateral oophorectomy, multiple colonoscopies and the most recent was in 03/14, right knee surgery, vulvar cancer removal with partial vulvectomy in 2000. 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 She has no other history of STDs. SOCIAL HISTORY: She quit smoking in 1999. She has about 2 to 3 alcoholic drinks per day and has used marijuana in the past but quit in 2016. She denies any other drug use. She is a and is not seeing anybody at this time and is not sexually active. FAMILY HISTORY: Mother had esophageal cancer, sister had cervical cancer and father had colon cancer. REVIEW OF SYSTEMS: She gained weight when she was put on steroids for her lung problems and was up to 170 pounds, but has lost about 15 pounds after discontinuing the steroids. She denies respiratory, cardiac, or GI problems. PHYSICAL EXAM: Blood pressure 103/56, height 5 feet 2-1/2 inches, weight 155 pounds. Temperature 96.8, pulse 91. This is a well developed, well nourished white female who is alert and oriented x3 in no acute distress. HEENT is within normal limits. Neck is supple without mass or thyromegaly. Chest and lungs clear to auscultation. Heart: Regular rate and rhythm. Breasts are without mass or discharge. Axillary exam is negative for adenopathy. Back negative for CVA tenderness. Abdomen is mildly obese, soft, nontender without palpable masses. Pelvic exam: There is an inclusion cyst measuring approximately 1.5 cm in the right mons pubis area. This is nontender. This appears benign. There is a very small black head type center in the middle. External genitalia is consistent with previous partial vulvectomy. The anterior vulva looks quite normal with mild to moderate atrophy. The posterior vulva has been removed as well as the majority of the perineal body. The anus seems to go right up to the vaginal introitus. There is an external hemorrhoid that appears inflamed at the 12 o' clock position of the anus. This measures approximately 1.5 x 1 cm. The tip is red consistent with dried blood. This is soft and nontender. Since there is no perineal body this external hemorrhoid sits at the border between the anus and vaginal mucosa. The vaginal reveals mild to moderate atrophy without lesions. There is no evidence of prolapse. Bimanual exam is negative for mass or tenderness. Rectovaginal exam is negative for mass or tenderness and is negative for occult blood. Extremities are nontender. IMPRESSION: 1. A 62-year-old menopausal female status post TAD with unilateral oophorectomy for benign reasons. 2. History of vulvar cancer status post partial vulvectomy not requiring adjuvant therapy. 3. Inflamed external hemorrhoid. Because of her previous partial vulvectomy this external hemorrhoid sits at the border of the vaginal mucosa. This appears to be an external hemorrhoid, but I cannot completely rule out some type of recurrent vulvar lesion because of its location. 4. Benign appearing mons pubis inclusion cyst. PLAN: 1. PAP smear of the vaginal cuff was performed because of her history of vulvar cancer. 2. Self breast examination was discussed. 3. Mammogram will be done today. 4. Osteoporosis prevention was discussed and bone density testing will also be done today. 5. I will call Dr. Burger, her general surgeon, who is planning to do some type of bowel resection because of colon polyps according to the patient. I will try to contact Dr. Burger to see if removal of the external hemorrhoid can be performed. I will also have him have this specimen examined because of her history of vulvar cancer and its location. She will also talk to Dr. Burger about the inclusion cyst in the mons pubis area. 6. She will return in one year and p.r.n. MTDD
--- NOTE | 2017-05-29 07:04 | MM ---
Reason for exam: screening (asymptomatic). Last mammogram was performed 8 years and 8 months ago. History: Patient is postmenopausal, history of endometrial cancer, and is nulliparous. Family history of breast cancer. Physical Findings: A clinical breast exam by your physician is recommended on an annual basis and results should be correlated with mammographic findings. MG 3D Screening Mammo W/Cad Bilateral CC and MLO view(s) were taken. No prior studies available for comparison. There are scattered fibroglandular densities. Finding: There are grouped indeterminate calcifications in the outer quadrant, middle position of both breasts. ASSESSMENT: Incomplete: need additional imaging evaluation, BI-RAD 0 RECOMMENDATION: Special view mammogram of both breasts. If lesion persists on supplemental views, image directed ultrasound is recommended. [facility] will attempt to contact patient to return for supplemental views and ultrasound if indicated.
== END | disposition home or self-care (01) ==
LOC: WWCWWP 14:32
PROVIDERS: ATTEND Obstetrics & Gynecology
DX: Z12.31 Encounter for screening mammogram for malignant neoplasm of breast (principal); M85.80 Other specified disorders of bone density and structure, unspecified site; R92.2 Inconclusive mammogram; Z78.0 Asymptomatic menopausal state
CPT/HCPCS: 77080; 77063; G0202

== ENCOUNTER → 2017-05-30 | Outpatient (CLI) | payer MEDICARE ==
--- NOTE | 2017-05-31 08:11 | MM ---
Reason for exam: additional evaluation requested from abnormal screening. Last mammogram was performed less than 1 month ago. History: Patient is postmenopausal, history of endometrial cancer, and is nulliparous. Family history of breast cancer. Physical Findings: Nurse did not find any significant physical abnormalities on exam. MG Work Up Mamm w CAD BILAT Bilateral ML, CC with magnification, and ML with magnification view(s) were taken. Prior study comparison: May 22, 2017, bilateral MG 3d screening mammo w/cad. September 11, 2008, bilateral digital screening mammogram. 9mm grouped calcifications, upper outer quadrant, middle depth in the right breast, hetergeneous on magnification views, indeterminate recommended biopsy. 7mm grouped calcifications, upper outer quadrant , middle depth, more anterior of the left breast, hetergeneous, some linear on magnification views, recommended biopsy. 3mm grouped calcifications in upper outer quadrant at middle depth just past the 7mm group. These are course, recommended 6 month follow up pending biopsy results of the other two groups. These results were verbally communicated with the patient and result sheet given to the patient on 05/30/17. ASSESSMENT: Suspicious, BI-RAD 4 RECOMMENDATION: Needle biopsy and stereotactic core biopsy of both breasts. Called Dr. Morfin with mammographic findings and has scheduled an appointment for the patient for 06/05/17 at 1:[address] Burger PRELIMINARY REPORT CALLED AND FAXED TO DR. BURGER ON 05/30/17 AT 300/TMP.
== END | disposition home or self-care (01) ==
LOC: RADMAMWWP 13:07
PROVIDERS: ATTEND Obstetrics & Gynecology
DX: R92.8 Other abnormal and inconclusive findings on diagnostic imaging of breast (principal)

== ENCOUNTER → 2017-06-05 | Day surgery (SDC) | payer MEDICARE ==
[2017-06-05 12:20] VITALS: PULSE 76; RESP 16; TEMP 97.9; BMI 28.2
[2017-06-05 14:47] VITALS: BP 109/69
--- NOTE | 2017-06-05 15:30 | MM ---
EXAMINATION TYPE: MG stereo VAD BX LT, MG stereo VAD BX RT DATE OF EXAM: 06/05/2017 COMPARISON: Bilateral breast mammogram May 30, 2017 and original screening study May 22, 2017. CLINICAL HISTORY: Abnormal mammogram TECHNIQUE: Stereotactic guided core biopsy of bilateral breasts with clip placement and follow-up two-view mammogram. FINDINGS: The procedure of stereotactic guided core biopsy was explained to the patient. Benefits, alternatives, and risks were discussed. An informed consent was then obtained. The shortness pathway for biopsy was chosen. Shortness pathway was lateral approach in both breasts. I performed the localization and the remainder of the procedure. Overlying skin is cleansed bilaterally. Lidocaine is used as anesthetic into the skin. Lidocaine with epinephrine is used as anesthetic into the deeper tissue. A vacuum assisted biopsy gun was used to obtain multiple core samples bilaterally. The patient tolerated the procedure well without any immediate complication. The patient was kept in the radiology department for short stay after the procedure and then discharged home in stable condition. Targeted calcifications are identified in specimen mammogram bilaterally. Post biopsy mammogram shows the clip to appear in satisfactory position relative to the targeted area of concern on the preprocedure images. Some residual calcifications anteriorly on the left are redemonstrated. Some residual calcifications on the right are seen along inferior medial aspect of the clip. IMPRESSION: SUCCESSFUL, UNCOMPLICATED STEREOTACTIC GUIDED CORE BIOPSY OF AREA OF CONCERN IN THE BILATERAL BREASTS, FULL PATHOLOGY RESULTS TO FOLLOW. INTERMEDIATE INDEX OF SUSPICION NOTED AT TIME OF PROCEDURE. Pathology Results: Benign A. BREAST, RIGHT, SITE A, CORE BIOPSY: FIBROADENOMA/FIBROADENOMATOID HYPERPLASIA WITH HYALINIZATION AND CALCIFICATIONS. BACKGROUND FIBROCYSTIC CHANGES INCLUDING FIBROSIS AND SMALL CYSTS. B. BREAST, LEFT, SITE A, CORE BIOPSY: FIBROCYSTIC CHANGES INCLUDING FOCAL FIBROADENOMATOID HYPERPLASIA WITH HYALINIZATION AND CALCIFICATIONS. Recommendation Follow up mammogram of the right and left breast in 6 months. BECKIE
== END ==
LOC: RADMAMWWP 11:45
PROVIDERS: ATTEND Surgery
DX: N62 Hypertrophy of breast (principal); N60.32 Fibrosclerosis of left breast; R92.8 Other abnormal and inconclusive findings on diagnostic imaging of breast; N64.89 Other specified disorders of breast; Z88.5 Allergy status to narcotic agent; Z88.8 Allergy status to other drugs, medicaments and biological substances; D24.1 Benign neoplasm of right breast
CPT/HCPCS: 88305; 19081; 19082; A4648; J2001

== ENCOUNTER → 2017-07-12 | Outpatient (CLI) | payer MEDICARE ==
[2017-07-12 13:54] LABS: CH 32.8; CHCM 33.2; HCT 41.8 % (34.0-46.0); HDW 2.15; HGB 13.2 gm/dL (11.4-16.0); MCH 31.4 pg (25.0-35.0); MCHC 31.6 g/dL (31.0-37.0); MCV 99.3 fL (80.0-100.0); Mean Platelet Volume 8.3; RBC 4.21 m/uL (3.80-5.40); RDW 14.3 % (11.5-15.5)
--- NOTE | 2017-07-12 13:58 | XR ---
EXAMINATION TYPE: XR chest 2V DATE OF EXAM: 07/12/2017 COMPARISON: 11/16/16 HISTORY: Shortness of breath TECHNIQUE: Frontal and lateral views of the chest are obtained. FINDINGS: Scattered senescent parenchymal changes noted. Hyperinflation compatible with COPD. No evidence for infiltrate. No evidence for atelectasis. Heart size is stable. Mediastinal structures are stable and grossly unremarkable. No evidence for hilar prominence. Degenerative changes dorsal spine. IMPRESSION: 1. No evidence for acute pulmonary disease.
[2017-07-12 14:23] LABS: Potassium 4.9 mmol/L (3.5-5.1)
== END | disposition home or self-care (01) ==
LOC: LABPAT 13:08
PROVIDERS: ATTEND Surgery
DX: Z01.818 Encounter for other preprocedural examination (principal)
CPT/HCPCS: 71020; 80051; 85027

== ENCOUNTER 2017-07-13 07:30 | Inpatient (IN) | payer MEDICARE ==
[2017-07-12 09:20] VITALS: BMI 27.4
[~2017-07-13 07:30] MED LIST changes: +ALVIMOPAN 12 MG CAPSULE PO ONE; +DEXAMETHASONE SOD PHOSPHATE 10 MG/ML 1 ML VIAL IV ONE; +HEPARIN SODIUM,PORCINE 5,000 UNIT/ML 1 ML VIAL SQ ONE; +HYDROmorphone 1 MG/ML 1 ML SYRINGE IVP PRN; -LACTATED RINGERS 1,000 ML IV SCH; +MIDAZOLAM 2 MG/2 ML VIAL IV PRN; +ONDANSETRON 4 MG/2 ML VIAL IVP ONE; +SCOPOLAMINE 1.5MG/72HR PATCH TRANSDERM ONE; +ceFAZolin 2 GM in SODIUM CHLORIDE 0.9% 100 ML IVPB ONE; +metroNIDAZOLE-NS PMX 500 MG in SALINE 1 100ML.BAG IVPB ONE
--- NOTE | 2017-07-13 08:21 | P.GSHP ---
History of Present Illness H&P Date: 07/13/17 Chief Complaint: Right colon polyp Patient was being followed for a polypoid lesion in the right colon. This was last evaluated by Dr. Ring and attempts at endoscopic resection were unsuccessful. This is a broad-based polyp. Pathology showing adenomatous tissue. Denies rectal bleeding or melena. Also has complaints of a small sebaceous cyst in the suprapubic location. Past Medical History Past Medical History: Cancer, COPD, Deep Vein Thrombosis (DVT), Hypertension, Pneumonia, Rheumatoid Arthritis (RA), Vascular Disorder Additional Past Medical History / Comment(s): HX RECTAL BLEEDING, CA VULVA, varicose veins, COLITIS,SINUS/SEASONAL ALLERGIES, osteopenia, large colon polyp , fatigue, recent respiratory infection-on prednisone and just finished antibiotics. History of Any Multi-Drug Resistant Organisms: None Reported Past Surgical History: Hysterectomy, Joint Replacement Additional Past Surgical History / Comment(s): RT KNEE REPLACEMENT, SX TO REMOVE CANCER VULVA,EGD, LASIK EYE-greg Past Anesthesia/Blood Transfusion Reactions: Family History of Problems w/ Anesthesia Additional Past Anesthesia/Blood Transfusion Reaction / Comment(s): pt not sure what problems brother has Smoking Status: Former smoker - Past Family History Father Family Medical History: Cancer Additional Family Medical History / Comment(s): COLON Mother Family Medical History: Cancer Additional Family Medical History / Comment(s): ESOPHAGUS Sister(s) Family Medical History: Cancer Additional Family Medical History / Comment(s): CERVICAL Medications and Allergies Home Medications Medication Instructions Recorded Confirmed Type Benazepril HCl 20 mg PO QAM 01/24/16 07/12/17 History Hydrocodone/Acetaminophen 1 each PO BID PRN 01/24/16 07/12/17 History [Hydrocodon-Acetaminophn 10-325] amLODIPine BESYLATE [Amlodipine 5 mg PO QAM 01/24/16 07/12/17 History Besylate] Budesonide [Pulmicort] 0.5 mg INHALATION DAILY 05/31/17 07/12/17 History Formoterol Fumarate [Perforomist] 1 each INHALATION DAILY 05/31/17 07/12/17 History Furosemide [Lasix] 40 mg PO DAILY 05/31/17 07/12/17 History Ipratropium Nebulized [Atrovent 1 each INHALATION HS 05/31/17 07/12/17 History Nebulized] Montelukast [Singulair] 10 mg PO HS 05/31/17 07/12/17 History Dextroamphetamine/Amphetamine 15 mg PO QAM 06/04/17 07/12/17 History [Adderall Xr] Etanercept [Enbrel] 50 mg SQ [id number] PRN 07/12/17 07/12/17 History Multivit-Min/FA/Lycopen/Lutein 1 each PO DAILY 07/12/17 07/12/17 History [Centrum Silver Tablet] Polyethylene Glycol 3350 [Miralax] 17 gm PO DAILY 07/12/17 07/12/17 History predniSONE 10 mg PO DIRECTED 07/12/17 07/12/17 History Allergies Allergy/AdvReac Type Severity Reaction Status Date / Time infliximab [From Remicade] Allergy Dyspnea/HIV Verified 07/12/17 08:59 ES procaine [From Novocain] Allergy Unknown Verified 07/12/17 08:59 propoxyphene HCl Allergy Unknown Verified 07/12/17 08:59 [From Darvon] Surgical - Exam Physical exam: General: Well-developed, well-nourished HEENT: Normocephalic, sclerae nonicteric Abdomen: Nontender, nondistended, small 1.5 cm sebaceous cyst in the suprapubic location Extremities: No edema Neuro: Alert and oriented Assessment and Plan (1) Colon polyp Narrative/Plan: Patient with adenomatous colon polyp in the region of the cecum. We'll proceed with laparoscopic possible open right colectomy. We'll also remove the patient' s sebaceous cyst at this time. The risks of bleeding, infection, leak, abscess , ureteral injury, hernia, conversion, respiratory and cardiac complications were discussed. She understands and wishes to proceed. Status: Acute
[2017-07-13 08:58] LABS: Glucose,Whole Blood 105 mg/dL (75-99)
[2017-07-13] MEDS: LACTATED RINGERS 1,000 ML IV SCH (08:58)
[2017-07-13] MEDS ORDERED: LIDOCAINE 1% 20 ML VIAL (10MG/ML) FOR IV START INTRADERMA ONE (09:06)
[2017-07-13] MEDS ORDERED: fentaNYL (PF) 50 MCG/ML 2 ML AMP IV ONE (09:23)
[2017-07-13] MEDS ORDERED: MIDAZOLAM 2 MG/2 ML VIAL IV ONE (09:23)
[2017-07-13 09:31] LABS: CH 32.2; CHCM 33.9; HCT 37.7 % (34.0-46.0); HDW 2.13; MCH 32.9 pg (25.0-35.0); MCHC 34.4 g/dL (31.0-37.0); MCV 95.7 fL (80.0-100.0); Mean Platelet Volume 7.8; RBC 3.94 m/uL (3.80-5.40); RDW 13.9 % (11.5-15.5); WBC 12.9 k/uL (3.8-10.6)
[2017-07-13 09:43] LABS: Anion Gap 11 mmol/L; Blood Urea Nitrogen 26 mg/dL (7-17); Carbon Dioxide 27 mmol/L (22-30); Chloride 97 mmol/L (98-107); Glucose 104 mg/dL (74-99); Potassium 4.1 mmol/L (3.5-5.1); Sodium 135 mmol/L (137-145)
[2017-07-13] MEDS ORDERED: diphenhydrAMINE 50 MG/ML 1 ML VIAL IVP PRN (09:43)
[2017-07-13] MEDS ORDERED: BUPIVACAINE (PF) 0.5% 31.3 ML, fentaNYL (PF) 1,250 MCG in SODIUM CHLORIDE 0.9% 194 ML EPIDURAL PRN (09:43)
[2017-07-13] MEDS ORDERED: NALOXONE 0.4 MG/ML 1 ML VIAL IV PRN (09:43)
[2017-07-13 09:44] LABS: ALT 31 U/L (9-52); AST 24 U/L (14-36); Alkaline Phosphatase 87 U/L (38-126); Calcium 8.7 mg/dL (8.4-10.2); Non-African American GFR(MDRD) 56 (>60 ml/min/1.73 sqM); Total Bilirubin 0.9 mg/dL (0.2-1.3); Total Protein 7.7 g/dL (6.3-8.2)
[2017-07-13] MEDS ORDERED: ALBUTEROL NEBULIZED 2.5 MG/3 ML INHALATION STA (09:44)
[2017-07-13] MEDS ORDERED: ONDANSETRON 4 MG/2 ML VIAL IVP PRN (10:19)
[2017-07-13] MEDS ORDERED: D5-0.45% NACL WITH KCL 20MEQ/L 1,000 ML IV SCH (10:30)
[2017-07-13] MEDS ORDERED: BUPIVACAINE (PF) 0.25% 30 ML VIAL SQ ONE (10:35)
[2017-07-13] MEDS ORDERED: ROCURONIUM BROMIDE 10 MG/ML 10 ML VIAL IV ONE (11:05)
[2017-07-13] MEDS ORDERED: PHENYLEPHRINE-0.9% NACL SYG 1 MG/10 ML SYRINGE ONE (11:05)
[2017-07-13] MEDS ORDERED: MIDAZOLAM 2 MG/2 ML VIAL ONE (11:05)
[2017-07-13] MEDS ORDERED: GLYCOPYRROLATE 0.2 MG/ML 2 ML VIAL ONE (11:05)
[2017-07-13] MEDS ORDERED: PROPOFOL 10 MG/ML 20 ML VIAL IV ONE (11:05)
[2017-07-13] MEDS ORDERED: SUCCINYLCHOLINE CHLORIDE 100 MG/5 ML SYR IV ONE (11:05)
[2017-07-13] MEDS ORDERED: NEOSTIGMINE 1 MG/ML 10 ML VIAL ONE (11:05)
[2017-07-13] MEDS ORDERED: LIDOCAINE 1% INJ 10MG/ML (20 ML MDV) ONE (11:05)
[2017-07-13] MEDS ORDERED: HYDROCORTISONE SUCCINATE 100 MG/2 ML VIAL ONE (11:05)
[2017-07-13] MEDS ORDERED: LACTATED RINGERS 1,000 ML IV ONE ×2 (11:39→13:41)
--- NOTE | 2017-07-13 14:56 | P.OP ---
Date of Procedure: 07/13/17 Procedure(s) Performed: PREOPERATIVE DIAGNOSIS: Right colon lesion, suprapubic sebaceous cyst POSTOPERATIVE DIAGNOSIS: Same PROCEDURE: Extensive laparoscopic lysis of adhesions with open right colectomy with excision suprapubic sebaceous cyst SURGEON: Jennyfer EBL: 50ML ANESTHESIA: General COMPLICATIONS: None OPERATIVE PROCEDURE: The patient was placed in the operating table in the supine position. She was placed under general anesthesia that time. A [place] catheter was placed. The patient was placed on the huggy vac. The arms were tucked. The abdomen was prepped and draped in the usual sterile fashion. A vertical supraumbilical incision was made using the scalpel. The fascia was retracted anteriorly with [place] forceps. The Veress needle was advanced into the peritoneal cavity and pneumoperitoneum was achieved up to 15 monitor mercury. A 12 mm trocar was then placed. Inspection of the abdominal cavity revealed surprisingly fairly severe adhesions in the pelvis extending into both lower quadrants. The patient's descending colon and its junction with the sigmoid colon was densely adherent to the anterior abdominal wall to the right of the midline. I was able to place a 5 mm trocar in the left upper quadrant and a extensive lysis of adhesions took place at that time using both blunt and sharp dissection. An additional 5 mm trocar was then placed in the left lower quadrant and eventually 1 in the suprapubic location as well. We're able to lyse the adhesions to the sigmoid colon and also the dense adhesions between the small bowel loops in the pelvis in the cecum and the pelvis. The etiology of these adhesions was unclear. We were able to mobilize the cecum and ascending colon using the LigaSure device. The duodenum was visualized and safely avoided. There were still some dense adhesions in the right lower quadrant however between the cecum and the retroperitoneum. A midline incision was then created extending above and below the umbilicus so that this portion of the dissection could take place in a traditional fashion. Once I had the bowel mobilized to the midline the proximal and distal aspects of our dissection were divided using the linear [address] at the terminal ileum and the transverse colon. The mesentery was divided using a combination of the LigaSure device and 0 silk ties. The specimen was sent to pathology for close examination. A [id number] anastomosis then took place. The antimesenteric portion of the staple line was excised. Through this defect the 75 linear stapler was placed and a [id number] anastomosis took place along the tenia on the transverse colon and the antimesenteric border of the small intestine. A 3-0 GI silk crotch stitch was placed. The anastomosis was completed by firing a TA stapler. The TA staple line was imbricated using 3-0 GI silk sutures as well. No bleeding was seen. The bowel was reduced back into the peritoneal cavity. Irrigation took place with no evidence of any bleeding. The fish bowel protector was utilized. Our gloves were changed at that time. The fascia was then closed using a running double-stranded #1 PDS suture. The sub-cutaneous tissues reapproximated using interrupted 3-0 Vicryl sutures and the skin using skin jaki. The 3 small trocar incisions were closed using Monocryl sutures and Steri-Strip. A sterile dressing was applied at that point. The suprapubic sebaceous cyst was then excised sharply. This was closed using jaki. A sterile dressing was applied here as well. At the end of the procedure the sponge needle and instrument counts were correct. DISPOSITION: Stable to recovery room
[2017-07-13] MEDS: METOCLOPRAMIDE 5 MG/ML 2 ML VIAL IVP SCH ×2 (15:50→17:19)
[2017-07-13] MEDS ORDERED: NON-FORMULARY DRUG (Etanercept [Enbrel] 50 MG) SQ PRN (15:53)
[2017-07-13] MEDS: D5-0.45% NACL WITH KCL 20MEQ/L 1,000 ML IV SCH (17:19)
[2017-07-13] MEDS: HEPARIN SODIUM,PORCINE 5,000 UNIT/ML 1 ML VIAL SQ SCH (17:19)
[2017-07-13] MEDS: FORMOTEROL FUMARATE 20 MCG/2 ML NEBU INHALATION SCH (20:22)
[2017-07-13] MEDS: IPRATROPIUM-ALBUTEROL 3 ML NEB INHALATION PRN (20:22)
[2017-07-13] MEDS: BUDESONIDE 0.5 MG/2 ML NEBU INHALATION SCH (20:22)
--- NOTE | 2017-07-13 21:15 | P.CONS ---
History of Present Illness - Reason for Consult Consult date: 07/13/17 Mental management of hypertension, COPD and other people medical problems - Chief Complaint Polypoid lesion in the right colon - History of Present Illness Patient is a 62-year-old female with a known history of hypertension and COPD and rheumatoid that is currently not taking any immunosuppressants was admitted to the hospital for right colectomy due to recently diagnosed polypoid lesion. Patient was evaluated by Dr. Ring and had endoscopic resection was unsuccessful. Patient today underwent right colectomy along with Extensive laparoscopic lysis of adhesions and excision suprapubic sebaceous cyst. Patient is currently covering of mild short of breath. And also abdominal discomfort. Otherwise denied any chest pain. No nausea or vomiting. Pain is fairly controlled. Review of Systems CONSTITUTIONAL: No fever, no malaise, no fatigue. HEENT: No recent visual problems or hearing problems. Denied any sore throat. CARDIOVASCULAR: No chest pain, orthopnea, PND, no palpitations, no syncope. PULMONARY: , No cough. Mild short of breath. no hemoptysis. GASTROINTESTINAL: No diarrhea, no nausea, no vomiting, positive abdominal pain. Normoactive bowel sounds. NEUROLOGICAL: No headaches, no weakness, no numbness. HEMATOLOGICAL: Denies any bleeding or petechiae. GENITOURINARY: Denies any burning micturition, frequency, or urgency. MUSCULOSKELETAL/RHEUMATOLOGICAL: Denies any joint pain, swelling, or any muscle pain. ENDOCRINE: Denies any polyuria or polydipsia. The rest of the 14-point review of systems is negative. Past Medical History Past Medical History: Cancer, COPD, Deep Vein Thrombosis (DVT), Hypertension, Pneumonia, Rheumatoid Arthritis (RA), Vascular Disorder Additional Past Medical History / Comment(s): HX RECTAL BLEEDING, CA VULVA, varicose veins, COLITIS,SINUS/SEASONAL ALLERGIES, osteopenia, large colon polyp , fatigue, recent respiratory infection-on prednisone and just finished antibiotics. History of Any Multi-Drug Resistant Organisms: None Reported Past Surgical History: Hysterectomy, Joint Replacement Additional Past Surgical History / Comment(s): RT KNEE REPLACEMENT, SX TO REMOVE CANCER VULVA,EGD, LASIK EYE-greg Past Anesthesia/Blood Transfusion Reactions: Family History of Problems w/ Anesthesia Additional Past Anesthesia/Blood Transfusion Reaction / Comm: pt not sure what problems brother has Smoking Status: Former smoker - Past Family History Father Family Medical History: Cancer Additional Family Medical History / Comment(s): COLON Mother Family Medical History: Cancer Additional Family Medical History / Comment(s): ESOPHAGUS Sister(s) Family Medical History: Cancer Additional Family Medical History / Comment(s): CERVICAL Medications and Allergies Home Medications Medication Instructions Recorded Confirmed Type Benazepril HCl 20 mg PO QAM 01/24/16 07/13/17 History Hydrocodone/Acetaminophen 1 tab PO BID PRN 01/24/16 07/13/17 History [Hydrocodon-Acetaminophn 10-325] amLODIPine BESYLATE [Amlodipine 5 mg PO QAM 01/24/16 07/13/17 History Besylate] Budesonide [Pulmicort] 0.5 mg INHALATION RT-DAILY 05/31/17 07/13/17 History Formoterol Fumarate [Perforomist] 1 vial INHALATION RT-DAILY 05/31/17 07/13/17 History Furosemide [Lasix] 40 mg PO DAILY 05/31/17 07/13/17 History Ipratropium Nebulized [Atrovent 1 vial INHALATION RT-HS 05/31/17 07/13/17 History Nebulized] Montelukast [Singulair] 10 mg PO HS 05/31/17 07/13/17 History Dextroamphetamine/Amphetamine 15 mg PO QAM 06/04/17 07/13/17 History [Adderall Xr] Etanercept [Enbrel] 50 mg SQ [id number] PRN 07/12/17 07/13/17 History Multivit-Min/FA/Lycopen/Lutein 1 tab PO DAILY 07/12/17 07/13/17 History [Centrum Silver Tablet] Polyethylene Glycol 3350 [Miralax] 17 gm PO DAILY 07/12/17 07/13/17 History predniSONE 10 mg PO DIRECTED 07/12/17 07/13/17 History Allergies Allergy/AdvReac Type Severity Reaction Status Date / Time infliximab [From Remicade] Allergy Dyspnea/HIV Verified 07/13/17 15:22 ES procaine [From Novocain] Allergy Unknown Verified 07/13/17 15:22 propoxyphene HCl Allergy Unknown Verified 07/13/17 15:22 [From Darvon] Physical Exam Vitals: Vital Signs Temp Pulse Pulse Resp BP Pulse Ox 07/13/17 15:02 66 18 105/52 100 07/13/17 15:00 66 18 105/52 100 07/13/17 14:40 97.9 F 65 16 105/51 99 07/13/17 09:49 70 07/13/17 09:40 74 07/13/17 08:43 98.2 F 79 20 110/54 94 L Intake and Output 07/13/17 07/13/17 07/13/17 06:59 14:59 22:59 Intake Total 2950 0 Output Total 275 Balance 2675 0 Intake: IV 2950 0 Output: Urine 200 Estimated Blood Loss 75 PHYSICAL EXAMINATION: Patient is lying in the bed comfortably, no acute distress, awake alert and oriented.. HEENT: Normocephalic. Neck is supple. Pupils reactive. Nostrils clear. Oral cavity is moist. Ears reveal no drainage. Neck reveals no JVD, carotid bruits, or thyromegaly. CHEST EXAMINATION: Trachea is central. Symmetrical expansion. Bilateral expiratory wheezing positive. No crackles. CARDIAC: Normal S1, S2 with no gallops. No murmurs ABDOMEN: Soft. Bowel sounds normal. No organomegaly. No abdominal bruits. Mid abdominal incision for laparoscopic surgery. Minimal tenderness to palpation no guarding no rigidity. Extremities reveal no edema. No clubbing or cyanosis Neurologically awake, alert, oriented x3 with well-coordinated movements. Skin: no rash or skin lesions Musculoskeletal: no joint swelling or deformity. Results CBC & Chem 7: 07/13/17 08:59 07/13/17 08:59 Labs: Abnormal Lab Results - Last 24 Hours (Table) 07/13/17 07/13/17 07/13/17 Range/Units 08:51 08:59 08:59 WBC 12.9 H (3.8-10.6) k/uL Sodium 135 L (137-145) mmol/L Chloride 97 L (98-107) mmol/L BUN 26 H (7-17) mg/dL Glucose 104 H (74-99) mg/dL POC Glucose (mg/dL) 105 H (75-99) mg/dL Assessment and Plan Plan: #1 status post right colectomy secondary to polypoid lesion #2 COPD with mild exacerbation #3 hypertension #4 rheumatoid arthritis. Patient is currently not taking any immunosuppressive agents. #5 history of varicose veins #6 history of rectal bleeding #7 DVT prophylaxis Plan: Patient will be continued on breathing treatments with duo nebs and Pulmicort as well as Perforomist. We will continue the pain management and bowel regimen. Ankle examination and incentive spirometry. We will hold blood pressure medications due to hypotension. Continue with DVT prophylaxis. We will continue to follow closely and further recommendations based on the clinical course. Thank you for your consult. Time with Patient: Greater than 30
[2017-07-13] MEDS: FAMOTIDINE 20 MG/2 ML VIAL IV SCH (21:38)
[2017-07-13] MEDS: MONTELUKAST 10 MG TAB PO SCH (21:38)
[2017-07-14] MEDS: HEPARIN SODIUM,PORCINE 5,000 UNIT/ML 1 ML VIAL SQ SCH ×4 (00:18→23:15)
[2017-07-14] MEDS: METOCLOPRAMIDE 5 MG/ML 2 ML VIAL IVP SCH ×5 (00:18→23:15)
[2017-07-14] MEDS: IPRATROPIUM-ALBUTEROL 3 ML NEB INHALATION PRN ×3 (04:12→20:34)
[2017-07-14] MEDS: D5-0.45% NACL WITH KCL 20MEQ/L 1,000 ML IV SCH ×4 (06:15→23:46)
[2017-07-14] MEDS: LACTATED RINGERS 1,000 ML IV SCH (06:29)
[2017-07-14 07:12] LABS: Basophils % (A) 0 %; CH 32.1; CHCM 32.3; Eosinophils # (A) 0.1 k/uL (0-0.7); Eosinophils % (A) 1 %; HCT 33.3 % (34.0-46.0); HDW 2.02; HGB 10.8 gm/dL (11.4-16.0); Luc # (Auto) 0.19; Luc % (Auto) 2; Lymphocytes # (A) 3.8 k/uL (1.0-4.8); Lymphocytes % (A) 33 %; MCH 32.3 pg (25.0-35.0); MCHC 32.4 g/dL (31.0-37.0); MCV 99.8 fL (80.0-100.0); Macrocytosis Slight; Mean Platelet Volume 7.8; Monocytes # (A) 1.1 k/uL (0-1.0); Monocytes % (A) 9 %; Neutrophils # (A) 6.4 k/uL (1.3-7.7); Neutrophils % (A) 56 %; RBC 3.34 m/uL (3.80-5.40); WBC 11.5 k/uL (3.8-10.6); WBC (Perox) 11.72
[2017-07-14] MEDS: BUDESONIDE 0.5 MG/2 ML NEBU INHALATION SCH (07:22)
[2017-07-14] MEDS: FORMOTEROL FUMARATE 20 MCG/2 ML NEBU INHALATION SCH (07:22)
[2017-07-14 07:24] LABS: Anion Gap 2 mmol/L; Blood Urea Nitrogen 15 mg/dL (7-17); Calcium 7.9 mg/dL (8.4-10.2); Carbon Dioxide 29 mmol/L (22-30); Chloride 101 mmol/L (98-107); Glucose 88 mg/dL (74-99); Non-African American GFR(MDRD) >60 (>60 ml/min/1.73 sqM); Potassium 4.8 mmol/L (3.5-5.1); Sodium 132 mmol/L (137-145)
[2017-07-14] MEDS ORDERED: BUDESONIDE 0.5 MG/2 ML NEBU INHALATION SCH (08:00)
[2017-07-14] MEDS ORDERED: FORMOTEROL FUMARATE 20 MCG/2 ML NEBU INHALATION SCH (08:00)
[2017-07-14] MEDS: ALVIMOPAN 12 MG CAPSULE PO SCH ×2 (08:29→21:37)
[2017-07-14] MEDS: FAMOTIDINE 20 MG/2 ML VIAL IV SCH ×2 (08:29→21:37)
[2017-07-14] MEDS ORDERED: DEXTROAMPHETAMINE PO SCH (09:00)
[2017-07-14] MEDS ORDERED: AMPHETAMINE PO SCH (09:00)
--- NOTE | 2017-07-14 12:01 | P.CNPUL ---
History of Present Illness Consult date: 07/14/17 Reason for consult: COPD Chief complaint: Status post right colonic surgery History of present illness: Consult dated 07/14/2017 This is a 62-year-old female with history of severe COPD D venous thrombosis hypertension pneumonia rheumatoid arthritis and peripheral vascular occlusive disease to apparently presented with a episode of colonic bleeding from a large right colon polypoid lesion. She apparently underwent resection by Dr. Stewart. I was asked to see her because she does have underlying severe COPD. She see my partner for that. In addition she has history of rectal bleeding cancer of the vulva varicose veins colitis seasonal ALLERGIES osteopenia and multiple recurrent respiratory infections. Surgical history includes hysterectomy joint replacement. The patient is currently on a prednisone taper given to her by Dr. Goodman. From a COPD standpoint doing relatively well well and she apparently did well with the surgery. Review of Systems A 12 point review of system is negative from the pulmonary standpoint. She does have some abdominal discomfort but otherwise is doing relatively well. The rest of the 12 point review of system is unremarkable. Past Medical History Past Medical History: Cancer, COPD, Deep Vein Thrombosis (DVT), Hypertension, Pneumonia, Rheumatoid Arthritis (RA), Vascular Disorder Additional Past Medical History / Comment(s): HX RECTAL BLEEDING, CA VULVA, varicose veins, COLITIS,SINUS/SEASONAL ALLERGIES, osteopenia, large colon polyp , fatigue, recent respiratory infection-on prednisone and just finished antibiotics. History of Any Multi-Drug Resistant Organisms: None Reported Past Surgical History: Hysterectomy, Joint Replacement Additional Past Surgical History / Comment(s): RT KNEE REPLACEMENT, SX TO REMOVE CANCER VULVA,EGD, LASIK EYE-greg Past Anesthesia/Blood Transfusion Reactions: Family History of Problems w/ Anesthesia Additional Past Anesthesia/Blood Transfusion Reaction / Comment(s): pt not sure what problems brother has Smoking Status: Former smoker - Past Family History Father Family Medical History: Cancer Additional Family Medical History / Comment(s): COLON Mother Family Medical History: Cancer Additional Family Medical History / Comment(s): ESOPHAGUS Sister(s) Family Medical History: Cancer Additional Family Medical History / Comment(s): CERVICAL Medications and Allergies Home Medications Medication Instructions Recorded Confirmed Type Benazepril HCl 20 mg PO QAM 01/24/16 07/13/17 History Hydrocodone/Acetaminophen 1 tab PO BID PRN 01/24/16 07/13/17 History [Hydrocodon-Acetaminophn 10-325] amLODIPine BESYLATE [Amlodipine 5 mg PO QAM 01/24/16 07/13/17 History Besylate] Budesonide [Pulmicort] 0.5 mg INHALATION RT-DAILY 05/31/17 07/13/17 History Formoterol Fumarate [Perforomist] 1 vial INHALATION RT-DAILY 05/31/17 07/13/17 History Furosemide [Lasix] 40 mg PO DAILY 05/31/17 07/13/17 History Ipratropium Nebulized [Atrovent 1 vial INHALATION RT-HS 05/31/17 07/13/17 History Nebulized] Montelukast [Singulair] 10 mg PO HS 05/31/17 07/13/17 History Dextroamphetamine/Amphetamine 15 mg PO QAM 06/04/17 07/13/17 History [Adderall Xr] Etanercept [Enbrel] 50 mg SQ [id number] PRN 07/12/17 07/13/17 History Multivit-Min/FA/Lycopen/Lutein 1 tab PO DAILY 07/12/17 07/13/17 History [Centrum Silver Tablet] Polyethylene Glycol 3350 [Miralax] 17 gm PO DAILY 07/12/17 07/13/17 History predniSONE 10 mg PO DIRECTED 07/12/17 07/13/17 History Allergies Allergy/AdvReac Type Severity Reaction Status Date / Time infliximab [From Remicade] Allergy Dyspnea/HIV Verified 07/13/17 15:22 ES procaine [From Novocain] Allergy Unknown Verified 07/13/17 15:22 propoxyphene HCl Allergy Unknown Verified 07/13/17 15:22 [From Darvon] Physical Exam Osteopathic Statement: *. No significant issues noted on an osteopathic structural exam other than those noted in the History and Physical/Consult. Vitals: Vital Signs Temp Pulse Pulse Pulse Resp BP BP 07/14/17 11:40 73 16 07/14/17 11:27 73 16 07/14/17 07:32 72 16 07/14/17 07:25 07/14/17 07:22 72 16 07/14/17 07:15 99.1 F 75 16 97/59 07/14/17 04:22 78 07/14/17 04:13 76 07/14/17 02:17 98.9 F 71 16 93/54 07/13/17 20:45 72 07/13/17 20:39 76 07/13/17 20:25 76 07/13/17 19:33 99.2 F 82 13 117/59 07/13/17 17:15 80 116/60 07/13/17 17:00 73 121/58 07/13/17 16:45 63 128/59 07/13/17 16:30 97 124/61 07/13/17 16:15 67 120/59 07/13/17 16:07 07/13/17 16:00 78 102/56 07/13/17 15:45 76 106/59 07/13/17 15:30 68 16 115/56 07/13/17 15:02 66 18 105/52 07/13/17 15:00 66 18 105/52 07/13/17 14:40 97.9 F 65 16 105/51 Pulse Ox 07/14/17 11:40 07/14/17 11:27 07/14/17 07:32 07/14/17 07:25 97 07/14/17 07:22 07/14/17 07:15 95 07/14/17 04:22 07/14/17 04:13 07/14/17 02:17 96 07/13/17 20:45 07/13/17 20:39 07/13/17 20:25 07/13/17 19:33 98 07/13/17 17:15 97 07/13/17 17:00 97 07/13/17 16:45 98 07/13/17 16:30 96 07/13/17 16:15 94 L 07/13/17 16:07 95 07/13/17 16:00 95 07/13/17 15:45 96 07/13/17 15:30 99 07/13/17 15:02 100 07/13/17 15:00 100 07/13/17 14:40 99 Intake and Output 07/13/17 07/14/17 07/14/17 22:59 06:59 14:59 Intake Total 375 1000 Output Total 500 500 Balance -125 500 Intake: IV 0 Intake, IV Titration 375 1000 Amount D5-0.45% NaCl with KCl 375 1000 20Meq/l 1,000 ml @ 125 mls/hr IV .Q8H LATESHA Rx#: [id number] Output: Urine 500 500 Other: Voiding Method Indwelling Catheter Indwelling Catheter Weight 68.039 kg No acute distress, oriented 3. HEENT examination is grossly unremarkable. Mucous membranes are moist. No oral lesions. Neck supple. Full range of motion. No adenopathy or thyromegaly. Cardiovascular examination reveals regular rhythm rate. S1-S2 normal. No S3- S4 or murmur. Lungs reveal diminished but clear breath sounds. No wheezes or rhonchi. No crackles. Breath sounds are equal bilaterally. Slight prolongation on forced maneuver. Abdomen soft. No bowel sounds are heard. Tender on palpation over the incision. Extremities are intact. No cyanosis clubbing or edema. Skin without rash. Neurologic examination is nonfocal. Results - Laboratory Findings CBC and BMP: 07/14/17 06:52 07/14/17 06:52 Abnormal lab findings: Abnormal Labs 07/13/17 07/13/17 07/13/17 08:51 08:59 08:59 WBC 12.9 H RBC Hgb Hct Monocytes # Sodium 135 L Chloride 97 L BUN 26 H Glucose 104 H POC Glucose (mg/dL) 105 H Calcium 07/14/17 07/14/17 06:52 06:52 WBC 11.5 H RBC 3.34 L Hgb 10.8 L Hct 33.3 L Monocytes # 1.1 H Sodium 132 L Chloride BUN Glucose POC Glucose (mg/dL) Calcium 7.9 L - Diagnostic Findings Chest x-ray: image reviewed (X-rays labs and medications are all reviewed.) Assessment and Plan (1) DVT (deep venous thrombosis) Status: Acute (2) Hypertension Status: Acute (3) Pneumonia Status: Acute (4) Rheumatoid arthritis Status: Acute (5) Vulvar cancer Status: Acute (6) Colon polyp Status: Acute (7) COPD (chronic obstructive pulmonary disease) Status: Acute (8) GI bleed Status: Acute (9) Chronic constipation Status: Chronic (10) EtOH dependence Status: Chronic (11) History of hemorrhoids Status: Chronic Plan: Plan dated 07/14/2017 The patient's medications will be reviewed. We probably put her on some IV Solu -Medrol because she was on oral prednisone with a taper. We'll make sure she has updrafts and Symbicort. From the pulmonary standpoint she seems very stable this time. We'll encourage her to have deep breathing coughing and clearing of secretions. Time with Patient: Greater than 30
[2017-07-14] MEDS: MULTIVITAMINS, THERA 1 EACH TAB PO SCH (13:43)
[2017-07-14] MEDS: HYDROmorphone 1 MG/ML 1 ML SYRINGE IVP PRN ×3 (14:24→23:14)
[2017-07-14] MEDS ORDERED: HYDROmorphone 1 MG/ML 1 ML SYRINGE IVP STA (15:38)
--- NOTE | 2017-07-14 15:57 | P.PN ---
Subjective Principal diagnosis: Status post right hemicolectomy The patient is postoperative day 1 right hemicolectomy. Denies nausea or vomiting. She's not hungry. Incentive spirometry. Objective - Vital Signs Vital signs: Vital Signs Temp 89.1 F L 07/14/17 14:54 Pulse 86 07/14/17 14:54 Resp 16 07/14/17 14:54 BP 147/68 07/14/17 14:54 Pulse Ox 91 L 07/14/17 14:54 Intake & Output 07/13/17 07/14/17 07/14/17 18:59 06:59 18:59 Intake Total 2950 1375 1000 Output Total 275 1000 Balance 2675 375 1000 Weight 68.039 kg Intake: IV 2950 1000 D5-0.45% NaCl with KCl 1000 20Meq/l 1,000 ml @ 125 mls/hr IV .Q8H LATESHA Rx#: [id number] Intake, IV Titration 1375 Amount D5-0.45% NaCl with KCl 1375 20Meq/l 1,000 ml @ 125 mls/hr IV .Q8H LATESHA Rx#: [id number] Output: Urine 200 1000 Estimated Blood Loss 75 Other: Voiding Method Indwelling Catheter Indwelling Catheter Indwelling Catheter - Constitutional General appearance: Present: cooperative, no acute distress - Respiratory Respiratory: bilateral: CTA, diminished (At the bases) - Cardiovascular Rhythm: regular - Gastrointestinal Gastrointestinal Comment(s): Settings intact clean and dry General gastrointestinal: Present: decreased bowel sounds - Labs CBC & Chem 7: 07/14/17 06:52 07/14/17 06:52 Labs: Abnormal Lab Results - Last 24 Hours (Table) 07/14/17 07/14/17 Range/Units 06:52 06:52 WBC 11.5 H (3.8-10.6) k/uL RBC 3.34 L (3.80-5.40) m/uL Hgb 10.8 L (11.4-16.0) gm/dL Hct 33.3 L (34.0-46.0) % Monocytes # 1.1 H (0-1.0) k/uL Sodium 132 L (137-145) mmol/L Calcium 7.9 L (8.4-10.2) mg/dL Assessment and Plan (1) Colon polyp Status: Acute Plan: Encouraged activity and incentive spirometry. Low-grade temperature likely due to some expected atelectasis. Diet as tolerated. She is progressing slowly.
--- NOTE | 2017-07-14 16:16 | P.PN ---
Progress Note - Text Date: 07/14/2017 Time: 1551 The patient is status post, colectomy, postoperative day number 1 The patient has no complaints of nausea vomiting or headache. The patient does not complain of any lower extremity numbness or weakness. The epidural is running at[5] mL per hour. The patient has needed additional IV narcotic for breakthrough pain. The epidural will be monitored and adjusted as needed.
[2017-07-14] MEDS: methylPREDNISolone SOD SUCCI 40 MG/ML 1 ML VIAL IV SCH ×2 (16:47→23:32)
[2017-07-14] MEDS ORDERED: ACETAMINOPHEN IV (For NPO) 1,000 MG in EMPTY BAG 1 BAG IVPB STA (17:37)
[2017-07-14] MEDS: HYDROcodone/APAP 7.5-325MG 1 EACH TAB PO PRN (20:31)
[2017-07-14] MEDS: SYMBICORT 160-4.5 MCG INHALER INHALATION SCH (20:33)
[2017-07-14] MEDS: MONTELUKAST 10 MG TAB PO SCH (21:37)
[2017-07-15] MEDS: HYDROmorphone 1 MG/ML 1 ML SYRINGE IVP PRN ×3 (02:15→11:27)
[2017-07-15] MEDS: HYDROcodone/APAP 7.5-325MG 1 EACH TAB PO PRN ×2 (02:28→08:37)
[2017-07-15] MEDS: LACTATED RINGERS 1,000 ML IV SCH (06:42)
[2017-07-15] MEDS: METOCLOPRAMIDE 5 MG/ML 2 ML VIAL IVP SCH ×4 (06:57→23:37)
[2017-07-15 07:23] LABS: Basophils % (A) 0 %; CH 32.9; CHCM 32.8; Eosinophils % (A) 0 %; HDW 2.08; HGB 12.3 gm/dL (11.4-16.0); Luc # (Auto) 0.06; Luc % (Auto) 0; Lymphocytes # (A) 0.9 k/uL (1.0-4.8); Lymphocytes % (A) 6 %; MCH 31.8 pg (25.0-35.0); MCHC 31.6 g/dL (31.0-37.0); MCV 100.9 fL (80.0-100.0); Macrocytosis Slight; Mean Platelet Volume 8.1; Monocytes # (A) 0.3 k/uL (0-1.0); Monocytes % (A) 2 %; Neutrophils # (A) 13.1 k/uL (1.3-7.7); Neutrophils % (A) 91 %; RBC 3.87 m/uL (3.80-5.40); WBC 14.4 k/uL (3.8-10.6); WBC (Perox) 13.79
[2017-07-15 07:36] LABS: Anion Gap 6 mmol/L; Blood Urea Nitrogen 6 mg/dL (7-17); Calcium 8.7 mg/dL (8.4-10.2); Carbon Dioxide 27 mmol/L (22-30); Chloride 100 mmol/L (98-107); Glucose 147 mg/dL (74-99); Non-African American GFR(MDRD) >60 (>60 ml/min/1.73 sqM); Potassium 4.8 mmol/L (3.5-5.1); Sodium 133 mmol/L (137-145)
[2017-07-15] MEDS: SYMBICORT 160-4.5 MCG INHALER INHALATION SCH ×2 (07:45→20:08)
[2017-07-15] MEDS: IPRATROPIUM-ALBUTEROL 3 ML NEB INHALATION PRN ×3 (07:45→20:08)
[2017-07-15] MEDS: D5-0.45% NACL WITH KCL 20MEQ/L 1,000 ML IV SCH ×3 (08:13→22:19)
[2017-07-15] MEDS: HEPARIN SODIUM,PORCINE 5,000 UNIT/ML 1 ML VIAL SQ SCH ×3 (08:14→23:35)
[2017-07-15] MEDS: methylPREDNISolone SOD SUCCI 40 MG/ML 1 ML VIAL IV SCH ×3 (08:14→23:36)
[2017-07-15] MEDS: ALVIMOPAN 12 MG CAPSULE PO SCH ×2 (08:14→20:24)
[2017-07-15] MEDS: FAMOTIDINE 20 MG/2 ML VIAL IV SCH ×2 (08:14→20:23)
--- NOTE | 2017-07-15 11:09 | P.PN ---
Subjective Progress note dated 07/15/2017 62-year-old female seen in consultation yesterday. She has a history of severe COPD venous thrombosis hypertension pneumonia and rheumatoid arthritis peripheral vascular occlusive disease. Presented with colonic bleeding from a large right colon polypoid lesion. She had a laparoscopic colon resection by Dr. Chele Burger. She is doing well. She's had a surgical floor. Respiratory status is stable. Both myself and Dr. Goodman see her for her COPD. In addition to the above, she has a history of cancer of the vulva rectal bleeding varicose veins colitis osteopenia and multiple recurrent respiratory infections. Stable today. Objective - Vital Signs Vital signs: Vital Signs Temp 98 F 07/15/17 07:41 Pulse 72 07/15/17 07:59 Resp 18 07/15/17 07:41 BP 151/70 07/15/17 07:41 Pulse Ox 93 L 07/15/17 07:41 Intake & Output 07/14/17 07/15/17 07/15/17 18:59 06:59 18:59 Intake Total 1000 3500 Output Total 2100 500 Balance 1000 1400 -500 Intake: IV 1000 2000 D5-0.45% NaCl with KCl 1000 2000 20Meq/l 1,000 ml @ 125 mls/hr IV .Q8H LATESHA Rx#: [id number] Intake, IV Titration 280 Amount ACETAMINOPHEN IV (For NPO 200 ) 1,000 mg In Empty Bag 1 bag @ 400 mls/hr IVPB ONCE STA Rx#:[id number] Bupivacaine (Pf) 0.5% 31. 80 3 ml fentaNYL (PF) 1,250 mcg In Sodium Chloride 0. 9% 194 ml @ Per Protocol EPIDURAL .Q0M PRN Rx#: [id number] Oral 1220 Output: Urine 2100 500 Uretheral ([place]) 500 Other: Voiding Method Indwelling Catheter Indwelling Catheter Indwelling Catheter - Exam No acute distress, oriented 3. Nasal O2 in place. HEENT examination is grossly unremarkable. Mucous membranes are moist. No oral lesions. Neck supple. Full range of motion. No adenopathy or thyromegaly. Cardiovascular examination reveals regular rhythm rate. S1-S2 normal. No S3- S4 or murmur. Lungs reveal clear but diminished breath sounds. No wheezes rhonchi or crackles. Abdomen soft bowel sounds are not heard. Extremities are intact. No cyanosis clubbing or edema. Her graft skin without rash. Neurologic examination is nonfocal. - Labs CBC & Chem 7: 07/15/17 06:54 07/15/17 06:54 Labs: Abnormal Lab Results - Last 24 Hours (Table) 07/15/17 07/15/17 Range/Units 06:54 06:54 WBC 14.4 H (3.8-10.6) k/uL MCV 100.9 H (80.0-100.0) fL Neutrophils # 13.1 H (1.3-7.7) k/uL Lymphocytes # 0.9 L (1.0-4.8) k/uL Sodium 133 L (137-145) mmol/L BUN 6 L (7-17) mg/dL Glucose 147 H (74-99) mg/dL Assessment and Plan (1) DVT (deep venous thrombosis) Status: Acute (2) Hypertension Status: Acute (3) Pneumonia Status: Acute (4) Rheumatoid arthritis Status: Acute (5) Vulvar cancer Status: Acute (6) Colon polyp Status: Acute (7) COPD (chronic obstructive pulmonary disease) Status: Acute (8) GI bleed Status: Acute (9) Chronic constipation Status: Chronic (10) EtOH dependence Status: Chronic (11) History of hemorrhoids Status: Chronic Plan: Plan dated 07/14/2017 The patient's medications will be reviewed. We probably put her on some IV Solu -Medrol because she was on oral prednisone with a taper. We'll make sure she has updrafts and Symbicort. From the pulmonary standpoint she seems very stable this time. We'll encourage her to have deep breathing coughing and clearing of secretions. Plan dated 07/15/2017 The patient down will be maintained on current meds breathing medications. Encourage deep breathing coughing clearing secretions and use of incentive spirometer. Respiratory status is very stable. Hemodynamically she stable. No additional recommendations are made. Followed by surgery. Time with Patient: Less than 30
[2017-07-15] MEDS: MULTIVITAMINS, THERA 1 EACH TAB PO SCH (11:32)
[2017-07-15] MEDS ORDERED: HYDROmorphone (PF) 50 MG in SODIUM CHLORIDE 0.9% 245 ML IV SCH (11:45)
--- NOTE | 2017-07-15 11:45 | P.PN ---
Subjective Principal diagnosis: Status post right hemicolectomy The patient's epidural was not working well so was removed. She is complaining of a lot of pain today. She has been getting out of bed and ambulating. No nausea or vomiting. No bowel movement or flatus. Tolerating clear liquids. No shortness of breath. Her O2 sats will drop off of the nasal cannula and in the low 90s. Objective - Vital Signs Vital signs: Vital Signs Temp 98 F 07/15/17 07:41 Pulse 76 07/15/17 11:22 Resp 18 07/15/17 07:41 BP 151/70 07/15/17 07:41 Pulse Ox 93 L 07/15/17 07:41 Intake & Output 07/14/17 07/15/17 07/15/17 18:59 06:59 18:59 Intake Total 1000 3500 Output Total 2100 500 Balance 1000 1400 -500 Intake: IV 1000 2000 D5-0.45% NaCl with KCl 1000 2000 20Meq/l 1,000 ml @ 125 mls/hr IV .Q8H LATESHA Rx#: [id number] Intake, IV Titration 280 Amount ACETAMINOPHEN IV (For NPO 200 ) 1,000 mg In Empty Bag 1 bag @ 400 mls/hr IVPB ONCE STA Rx#:[id number] Bupivacaine (Pf) 0.5% 31. 80 3 ml fentaNYL (PF) 1,250 mcg In Sodium Chloride 0. 9% 194 ml @ Per Protocol EPIDURAL .Q0M PRN Rx#: [id number] Oral 1220 Output: Urine 2100 500 Uretheral ([place]) 500 Other: Voiding Method Indwelling Catheter Indwelling Catheter Indwelling Catheter - Constitutional General appearance: Present: cooperative, no acute distress - Respiratory Respiratory: bilateral: diminished, negative: rhonchi, wheezing - Cardiovascular Rhythm: regular - Gastrointestinal General gastrointestinal: Present: decreased bowel sounds, soft Localized gastrointestinal: surgical scar: diffuse (Dressings intact with old dried blood) - Labs CBC & Chem 7: 07/15/17 06:54 07/15/17 06:54 Labs: Abnormal Lab Results - Last 24 Hours (Table) 07/15/17 07/15/17 Range/Units 06:54 06:54 WBC 14.4 H (3.8-10.6) k/uL MCV 100.9 H (80.0-100.0) fL Neutrophils # 13.1 H (1.3-7.7) k/uL Lymphocytes # 0.9 L (1.0-4.8) k/uL Sodium 133 L (137-145) mmol/L BUN 6 L (7-17) mg/dL Glucose 147 H (74-99) mg/dL Assessment and Plan (1) Colon polyp Status: Acute Plan: The patient's not having good pain control with the intermittent Dilaudid. We discussed [employer]ICE [employer]CH[employer]IC and she elected try that. We'll also add some scheduled Toradol. She's progressing well.
[2017-07-15] MEDS: KETOROLAC 30 MG/ML 1 ML VIAL IVP SCH ×3 (12:29→23:36)
[2017-07-15] MEDS: HYDROmorphone PCA 5 MG/25 ML SYRINGE IV PRN ×2 (12:54→22:13)
[2017-07-15] MEDS: MONTELUKAST 10 MG TAB PO SCH (20:24)
--- NOTE | 2017-07-16 00:51 | P.PN ---
Subjective Principal diagnosis: Status post right colectomy COPD exacerbation Patient is a 62-year-old female with a known history of hypertension and COPD and rheumatoid that is currently not taking any immunosuppressants was admitted to the hospital for right colectomy due to recently diagnosed polypoid lesion. Patient was evaluated by Dr. Ring and had endoscopic resection was unsuccessful. Patient today underwent right colectomy along with Extensive laparoscopic lysis of adhesions and excision suprapubic sebaceous cyst. Patient is currently covering of mild short of breath. And also abdominal discomfort. Otherwise denied any chest pain. No nausea or vomiting. Pain is fairly controlled. 07/14/2017 Patients breathing status improved. Patient was seen by pulmonary. Was started on IV steroids. Patient still having abdominal soreness. Has not passed flatus. Otherwise no acute overnight issues. No fever no chills. No chest pain or worsening short of breath. Objective - Vital Signs Vital signs: Vital Signs Temp 89.1 F L 07/14/17 14:54 Pulse 86 07/14/17 14:54 Resp 16 07/14/17 14:54 BP 147/68 07/14/17 14:54 Pulse Ox 91 L 07/14/17 14:54 Intake & Output 07/13/17 07/14/17 07/14/17 18:59 06:59 18:59 Intake Total 2950 1375 1000 Output Total 275 1000 Balance 2675 375 1000 Weight 68.039 kg Intake: IV 2950 1000 D5-0.45% NaCl with KCl 1000 20Meq/l 1,000 ml @ 125 mls/hr IV .Q8H LATESHA Rx#: [id number] Intake, IV Titration 1375 Amount D5-0.45% NaCl with KCl 1375 20Meq/l 1,000 ml @ 125 mls/hr IV .Q8H LATESHA Rx#: [id number] Output: Urine 200 1000 Estimated Blood Loss 75 Other: Voiding Method Indwelling Catheter Indwelling Catheter Indwelling Catheter - Exam Patient is lying in the bed comfortably, no acute distress, awake alert and oriented.. HEENT: Normocephalic. Neck is supple. Pupils reactive. Nostrils clear. Oral cavity is moist. Ears reveal no drainage. Neck reveals no JVD, carotid bruits, or thyromegaly. CHEST EXAMINATION: Trachea is central. Symmetrical expansion. Bilateral expiratory wheezing positive. No crackles. CARDIAC: Normal S1, S2 with no gallops. No murmurs ABDOMEN: Soft. Bowel sounds normal. No organomegaly. No abdominal bruits. Mid abdominal incision for laparoscopic surgery. Minimal tenderness to palpation no guarding no rigidity. Extremities reveal no edema. No clubbing or cyanosis Neurologically awake, alert, oriented x3 with well-coordinated movements. Skin: no rash or skin lesions Musculoskeletal: no joint swelling or deformity. - Labs CBC & Chem 7: 07/15/17 06:54 07/15/17 06:54 Labs: Abnormal Lab Results - Last 24 Hours (Table) 07/14/17 07/14/17 Range/Units 06:52 06:52 WBC 11.5 H (3.8-10.6) k/uL RBC 3.34 L (3.80-5.40) m/uL Hgb 10.8 L (11.4-16.0) gm/dL Hct 33.3 L (34.0-46.0) % Monocytes # 1.1 H (0-1.0) k/uL Sodium 132 L (137-145) mmol/L Calcium 7.9 L (8.4-10.2) mg/dL Assessment and Plan Plan: #1 status post right colectomy secondary to polypoid lesion #2 COPD with acute exacerbation #3 hypertension #4 rheumatoid arthritis. Patient is currently not taking any immunosuppressive agents. #5 history of varicose veins #6 history of rectal bleeding #7 DVT prophylaxis Plan: Patient will be continued on breathing treatments with duo nebs and Pulmicort as well as Perforomist. Continue with Solu-Medrol every 8 hourly. We will continue the pain management and bowel regimen. Ambulation and incentive spirometry. We will hold blood pressure medications due to hypotension. Continue with DVT prophylaxis. We will continue to follow closely and further recommendations based on the clinical course. Thank you for your consult.
--- NOTE | 2017-07-16 00:55 | P.PN ---
Subjective Principal diagnosis: Status post right colectomy COPD exacerbation Patient is a 62-year-old female with a known history of hypertension and COPD and rheumatoid that is currently not taking any immunosuppressants was admitted to the hospital for right colectomy due to recently diagnosed polypoid lesion. Patient was evaluated by Dr. Ring and had endoscopic resection was unsuccessful. Patient today underwent right colectomy along with Extensive laparoscopic lysis of adhesions and excision suprapubic sebaceous cyst. Patient is currently covering of mild short of breath. And also abdominal discomfort. Otherwise denied any chest pain. No nausea or vomiting. Pain is fairly controlled. 07/14/2017 Patients breathing status improved. Patient was seen by pulmonary. Was started on IV steroids. Patient still having abdominal soreness. Has not passed flatus. Otherwise no acute overnight issues. No fever no chills. No chest pain or worsening short of breath. 07/15/2017 Patient denied any chest pain or short of breath. Patient is still complaining of abdominal pain. Patient did not have any bowel movement or pass flatness at. Patient is able to ambulate. Tolerating clear liquids. No other acute overnight issues. Objective - Vital Signs Vital signs: Vital Signs Temp 98.4 F 07/15/17 15:15 Pulse 80 07/15/17 20:22 Resp 18 07/15/17 15:15 BP 143/91 07/15/17 15:15 Pulse Ox 94 L 07/15/17 15:15 Intake & Output 07/15/17 07/15/17 07/16/17 06:59 18:59 06:59 Intake Total 3500 Output Total 2100 800 Balance 1400 -800 Intake: IV 2000 D5-0.45% NaCl with KCl 2000 20Meq/l 1,000 ml @ 125 mls/hr IV .Q8H [facility]HA Rx#: [id number] Intake, IV Titration 280 Amount ACETAMINOPHEN IV (For NPO 200 ) 1,000 mg In Empty Bag 1 bag @ 400 mls/hr IVPB ONCE STA Rx#:[id number] Bupivacaine (Pf) 0.5% 31. 80 3 ml fentaNYL (PF) 1,250 mcg In Sodium Chloride 0. 9% 194 ml @ Per Protocol EPIDURAL .Q0M PRN Rx#: [id number] Oral 1220 Output: Urine 2100 800 Uretheral ([place]) 500 Other: Voiding Method Indwelling Catheter Indwelling Catheter - Exam Patient is lying in the bed comfortably, no acute distress, awake alert and oriented.. HEENT: Normocephalic. Neck is supple. Pupils reactive. Nostrils clear. Oral cavity is moist. Ears reveal no drainage. Neck reveals no JVD, carotid bruits, or thyromegaly. CHEST EXAMINATION: Trachea is central. Symmetrical expansion. No wheezing. No crackles. CARDIAC: Normal S1, S2 with no gallops. No murmurs ABDOMEN: Soft. Bowel sounds normal. No organomegaly. No abdominal bruits. Mid abdominal incision for laparoscopic surgery. Minimal tenderness to palpation no guarding no rigidity. Extremities reveal no edema. No clubbing or cyanosis Neurologically awake, alert, oriented x3 with well-coordinated movements. Skin: no rash or skin lesions Musculoskeletal: no joint swelling or deformity. - Labs CBC & Chem 7: 07/15/17 06:54 07/15/17 06:54 Labs: Abnormal Lab Results - Last 24 Hours (Table) 07/15/17 07/15/17 Range/Units 06:54 06:54 WBC 14.4 H (3.8-10.6) k/uL MCV 100.9 H (80.0-100.0) fL Neutrophils # 13.1 H (1.3-7.7) k/uL Lymphocytes # 0.9 L (1.0-4.8) k/uL Sodium 133 L (137-145) mmol/L BUN 6 L (7-17) mg/dL Glucose 147 H (74-99) mg/dL Assessment and Plan Plan: #1 status post right colectomy secondary to polypoid lesion #2 COPD with acute exacerbation #3 hypertension #4 rheumatoid arthritis. Patient is currently not taking any immunosuppressive agents. #5 history of varicose veins #6 history of rectal bleeding #7 DVT prophylaxis Plan: Patient will be continued on breathing treatments with duo nebs and Pulmicort as well as Perforomist. Continue with Solu-Medrol every 8 hourly. Breathing status much improved now. We will continue the pain management and bowel regimen. encourage Ambulation and incentive spirometry. We will hold blood pressure medications due to hypotension. Continue with DVT prophylaxis. We will continue to follow closely and further recommendations based on the clinical course.
[2017-07-16] MEDS: KETOROLAC 30 MG/ML 1 ML VIAL IVP SCH ×4 (05:01→23:37)
[2017-07-16] MEDS: D5-0.45% NACL WITH KCL 20MEQ/L 1,000 ML IV SCH ×2 (05:01→14:54)
[2017-07-16] MEDS: METOCLOPRAMIDE 5 MG/ML 2 ML VIAL IVP SCH ×4 (05:01→23:38)
[2017-07-16] MEDS: IPRATROPIUM-ALBUTEROL 3 ML NEB INHALATION PRN ×5 (05:04→20:40)
[2017-07-16] MEDS: LACTATED RINGERS 1,000 ML IV SCH (06:01)
[2017-07-16] MEDS: BUDESONIDE 0.5 MG/2 ML NEBU INHALATION SCH ×2 (08:40→20:38)
[2017-07-16] MEDS: SYMBICORT 160-4.5 MCG INHALER INHALATION SCH (08:40)
[2017-07-16] MEDS: FORMOTEROL FUMARATE 20 MCG/2 ML NEBU INHALATION SCH ×2 (08:40→20:38)
--- NOTE | 2017-07-16 08:46 | P.PN ---
<Tamie Ramirezne M - Last Filed: 07/16/17 08:49> Subjective 62-year-old female being seen. Patient states that she did ambulate in the hallway yesterday. Patient's denying dizziness lightheadedness. Patient states pain medication has been effective for pain control less surgical pain this morning a few hypoactive bowel tones noted patient is status post extensive laparoscopic lysis of adhesions with an open right colectomy with an excision of a suprapubic sebaceous cyst done on July 13. Patient states urinating without difficulty. Reports no nausea vomiting. States has not had a bowel movement has not passed any gas. Denies any shortness of breath or chest pain. Sats are documented 99% on 2 L labs pending. Hemoglobin on the was 12.3 Objective - Vital Signs Vital signs: Vital Signs Temp 98.0 F 07/16/17 01:32 Pulse 76 07/16/17 05:18 Resp 16 07/16/17 01:32 BP 125/69 07/16/17 01:32 Pulse Ox 99 07/16/17 01:32 Intake & Output 07/15/17 07/16/17 07/16/17 18:59 06:59 18:59 Output Total 800 1 Balance -800 -1 Output: Urine 800 1 Uretheral ([place]) 500 Other: Voiding Method Indwelling Catheter Toilet # Voids 1 - Exam Physical exam 62-year-old female currently resting in bed pleasant oriented 3 states less abdominal surgical pain Lungs adequate air movement bilaterally currently on 2 L nasal cannula sats are documented 99% no cough noted no shortness of breath Heart S1-S2 audible regular Abdomen surgical dressing dry old dry blood noted dressing suprapubic area currently dry. Soft not distended slight surgical tenderness noted few hypoactive bowel tones noted reports no nausea vomiting and tolerating clear liquid diet Extremities no edema noted - Labs CBC & Chem 7: 07/15/17 06:54 07/15/17 06:54 Assessment and Plan Plan: Impression Status post right colectomy secondary to a polypoid lesion done on July 13 Rheumatoid arthritis Hypertension essential Acute exacerbation COPD History rectal bleeding Chronic constipation Chronic EtOH dependency vulvar cancer history of Plan Continue postop surgical care Pain control GRAIN FARMER dilaudid, [place] , Toradol as ordered Resume home meds as appropriate Increase activity Encourage the use of the incentive spirometer use every 1 hour while awake Titrate the O2 down and keep sats greater than 90% Follow-up on pending labs DVT and GI prophylaxis The above impression and plan of care have been discussed and directed by signing physician. Chapis Ramirez nurse practitioner acting as scribe for signing physician. <Brenden Burger - Last Filed: 07/16/17 14:11> Objective - Vital Signs Vital signs: Vital Signs Temp 98.2 F 07/16/17 07:00 Pulse 88 07/16/17 13:19 Resp 16 07/16/17 07:00 BP 136/85 07/16/17 07:00 Pulse Ox 100 07/16/17 07:00 Intake & Output 07/15/17 07/16/17 07/16/17 18:59 06:59 18:59 Output Total 800 1 Balance -800 -1 Output: Urine 800 1 Uretheral ([place]) 500 Other: Voiding Method Indwelling Catheter Toilet # Voids 1 - Labs CBC & Chem 7: 07/16/17 10:40 07/15/17 06:54 Labs: Abnormal Lab Results - Last 24 Hours (Table) 07/16/17 Range/Units 10:40 WBC 14.2 H (3.8-10.6) k/uL RBC 3.27 L (3.80-5.40) m/uL Hgb 10.9 L (11.4-16.0) gm/dL Hct 33.1 L (34.0-46.0) % MCV 101.2 H (80.0-100.0) fL Neutrophils # 12.8 H (1.3-7.7) k/uL Lymphocytes # 0.7 L (1.0-4.8) k/uL Assessment and Plan (1) Colon polyp Status: Acute Plan: As above. Pain better than expected. Ambulating fairly well. Small amount of flatus. Some shortness of breath. White blood cell count remains elevated which may be on the basis of the steroids. Await pulmonary evaluation. Advance diet. Increase activity levels's.
[2017-07-16] MEDS: FAMOTIDINE 20 MG/2 ML VIAL IV SCH ×2 (09:49→20:22)
[2017-07-16] MEDS: ALVIMOPAN 12 MG CAPSULE PO SCH ×2 (09:50→20:22)
[2017-07-16] MEDS: methylPREDNISolone SOD SUCCI 40 MG/ML 1 ML VIAL IV SCH ×3 (09:50→23:37)
[2017-07-16 11:18] LABS: Basophils % (A) 0 %; CH 32.7; CHCM 32.5; Eosinophils % (A) 0 %; HCT 33.1 % (34.0-46.0); HDW 2.09; HGB 10.9 gm/dL (11.4-16.0); Luc # (Auto) 0.07; Luc % (Auto) 1; Lymphocytes # (A) 0.7 k/uL (1.0-4.8); Lymphocytes % (A) 5 %; MCH 33.2 pg (25.0-35.0); MCHC 32.8 g/dL (31.0-37.0); MCV 101.2 fL (80.0-100.0); Macrocytosis Slight; Mean Platelet Volume 8.4; Monocytes # (A) 0.6 k/uL (0-1.0); Monocytes % (A) 4 %; Neutrophils # (A) 12.8 k/uL (1.3-7.7); Neutrophils % (A) 90 %; RBC 3.27 m/uL (3.80-5.40); RDW 14.3 % (11.5-15.5); WBC 14.2 k/uL (3.8-10.6); WBC (Perox) 14.98
[2017-07-16] MEDS: HYDROmorphone PCA 5 MG/25 ML SYRINGE IV PRN ×2 (11:27→23:45)
--- NOTE | 2017-07-16 12:37 | P.PN ---
Subjective Progress note being dictated for Dr. Cook. Patient is a 62-year-old female with a known history of hypertension and COPD and rheumatoid that is currently not taking any immunosuppressants was admitted to the hospital for right colectomy due to recently diagnosed polypoid lesion. Patient was evaluated by Dr. Ring and had endoscopic resection was unsuccessful. Patient today underwent right colectomy along with Extensive laparoscopic lysis of adhesions and excision suprapubic sebaceous cyst. Patient is currently covering of mild short of breath. And also abdominal discomfort. Otherwise denied any chest pain. No nausea or vomiting. Pain is fairly controlled. 07/14/2017 Patients breathing status improved. Patient was seen by pulmonary. Was started on IV steroids. Patient still having abdominal soreness. Has not passed flatus. Otherwise no acute overnight issues. No fever no chills. No chest pain or worsening short of breath. 07/15/2017 Patient denied any chest pain or short of breath. Patient is still complaining of abdominal pain. Patient did not have any bowel movement or pass flatness at. Patient is able to ambulate. Tolerating clear liquids. No other acute overnight issues. 07/16/2017 ambulating, tolerating exertion well. Incentive spirometer up to 1000. No bowel movement, passing flatus. Denies nausea, vomiting. Pain control with TRIAGE REGISTER NURSE. Afebrile. WBC 14.2, hemoglobin 10.9. Objective - Vital Signs Vital signs: Vital Signs Temp 98.2 F 07/16/17 07:00 Pulse 84 07/16/17 09:07 Resp 16 07/16/17 07:00 BP 136/85 07/16/17 07:00 Pulse Ox 100 07/16/17 07:00 Intake & Output 07/15/17 07/16/17 07/16/17 18:59 06:59 18:59 Output Total 800 1 Balance -800 -1 Output: Urine 800 1 Uretheral ([place]) 500 Other: Voiding Method Indwelling Catheter Toilet # Voids 1 - Exam Patient is sitting up in a chair, comfortable, no acute distress, awake alert and oriented.. HEENT: Normocephalic. Neck is supple. Pupils reactive. Oral cavity is moist. Neck reveals no JVD, carotid bruits, or thyromegaly. CHEST EXAMINATION: Trachea is central. Symmetrical expansion. No wheezing. No crackles. CARDIAC: Normal S1, S2 with no gallops. No murmurs ABDOMEN: Soft. Bowel sounds normal. No organomegaly. No abdominal bruits. Mid abdominal incision oozy-serosanguineous drainage for laparoscopic surgery. Minimal tenderness to palpation no guarding no rigidity. Extremities reveal no edema. No clubbing or cyanosis Neurologically awake, alert, oriented x3 with well-coordinated movements. Skin: no rash or skin lesions Musculoskeletal: no joint swelling or deformity. - Labs CBC & Chem 7: 07/16/17 10:40 07/15/17 06:54 Labs: Abnormal Lab Results - Last 24 Hours (Table) 07/16/17 Range/Units 10:40 WBC 14.2 H (3.8-10.6) k/uL RBC 3.27 L (3.80-5.40) m/uL Hgb 10.9 L (11.4-16.0) gm/dL Hct 33.1 L (34.0-46.0) % MCV 101.2 H (80.0-100.0) fL Neutrophils # 12.8 H (1.3-7.7) k/uL Lymphocytes # 0.7 L (1.0-4.8) k/uL Assessment and Plan Plan: #1 status post right colectomy secondary to polypoid lesion #2 COPD with acute exacerbation #3 hypertension #4 rheumatoid arthritis. Patient is currently not taking any immunosuppressive agents. #5 history of varicose veins #6 history of rectal bleeding Plan: Continue on current medication regime, nebulized bronchodilators, IV steroids, monitoring and symptomatic treatment. Diet advancement and pain management as per surgery. Aggressive pulmonary toileting with incentive spirometer reinforced. Increase ambulation as tolerated. The impression and plan of care has been dictated as directed. : I performed a H&P examination of this patient and discussed the same with the dictator. I agree with the dictator's note. Any additional findings/opinions/ etc. will be noted.
[2017-07-16] MEDS: HEPARIN SODIUM,PORCINE 5,000 UNIT/ML 1 ML VIAL SQ SCH ×3 (14:52→23:38)
[2017-07-16] MEDS: MULTIVITAMINS, THERA 1 EACH TAB PO SCH (14:53)
--- NOTE | 2017-07-16 16:16 | P.PN ---
Subjective A 62-year-old female patient with advanced and severe COPD along with various other comorbidities including rheumatoid arthritis, peripheral vascular disease and hypertension. History of DVT. The patient has a large right colonic polyp lesion/precancerous and for that reason the patient underwent a hemicolectomy. This was a right hemicolectomy. I'm seeing this patient postop day #3. The patient is doing well. No specific respiratory difficulties. Minimal cough and congestion. She is using the incentive spirometer. She is on her bronchodilators. No nausea no vomiting. No abdominal pain. The surgical wound site is dry clean and intact and there is no drains noted. Abdomen is nondistended. No change in mental status. She is emanating in the hallway. No other significant events over the past 24 hours. Objective - Vital Signs Vital signs: Vital Signs Temp 98.1 F 07/16/17 14:21 Pulse 95 07/16/17 14:21 Resp 16 07/16/17 14:21 BP 154/71 07/16/17 14:21 Pulse Ox 100 07/16/17 07:00 Intake & Output 07/15/17 07/16/17 07/16/17 18:59 06:59 18:59 Output Total 800 1 Balance -800 -1 Output: Urine 800 1 Uretheral ([place]) 500 Other: Voiding Method Indwelling Catheter Toilet # Voids 1 - Exam Gen. appearance No acute distress, oriented 3. HEENT examination is grossly unremarkable. Mucous membranes are moist. No oral lesions. Neck supple. Full range of motion. No adenopathy or thyromegaly. Cardiovascular examination reveals regular rhythm rate. S1-S2 normal. No S3- S4 or murmur. Lungs reveal diminished but clear breath sounds. No wheezes or rhonchi. No crackles. Breath sounds are equal bilaterally. Slight prolongation on forced maneuver. Abdomen soft. No bowel sounds are heard. Tender on palpation over the incision. Extremities are intact. No cyanosis clubbing or edema. Skin without rash. The surgical wound is dry clean and intact. Neurologic examination is nonfocal. Patient is alert and awake and oriented. Skeletal system no joint deformities or fractures or active arthritis. - Labs CBC & Chem 7: 07/16/17 10:40 07/15/17 06:54 Labs: Abnormal Lab Results - Last 24 Hours (Table) 09/18/17 Range/Units 10:40 WBC 14.2 H (3.8-10.6) k/uL RBC 3.27 L (3.80-5.40) m/uL Hgb 10.9 L (11.4-16.0) gm/dL Hct 33.1 L (34.0-46.0) % MCV 101.2 H (80.0-100.0) fL Neutrophils # 12.8 H (1.3-7.7) k/uL Lymphocytes # 0.7 L (1.0-4.8) k/uL Assessment and Plan Plan: Assessment 1 right hemicolectomy and the patient is postop day #3 2 advanced oxygen-dependent COPD 3 chronic hypoxic history failure secondary to COPD 4 chronic dyspnea secondary to COPD 5 hypertension 6 rheumatoid arthritis 7 chronic alcoholism, currently inactive in stable Plan Patient has been provided adequate pain control with Dilaudid [employer] SYSTEMS ENGINEER. She is also on [place] for pain control. Patient is using incentive spirometer. Pulmonary status is stable. Oxygen is being provided to maintain a saturation above 90%. Early mobility. Advance diet as tolerated. No significant complications postoperatively the patient's condition is stable for now.
[2017-07-16] MEDS: MONTELUKAST 10 MG TAB PO SCH (20:22)
[2017-07-17] MEDS: IPRATROPIUM-ALBUTEROL 3 ML NEB INHALATION PRN ×4 (04:24→20:22)
[2017-07-17] MEDS: KETOROLAC 30 MG/ML 1 ML VIAL IVP SCH ×4 (05:19→23:32)
[2017-07-17] MEDS: METOCLOPRAMIDE 5 MG/ML 2 ML VIAL IVP SCH ×4 (05:19→23:32)
[2017-07-17] MEDS: D5-0.45% NACL WITH KCL 20MEQ/L 1,000 ML IV SCH ×2 (06:02→20:33)
[2017-07-17] MEDS: LACTATED RINGERS 1,000 ML IV SCH (06:02)
[2017-07-17] MEDS: FORMOTEROL FUMARATE 20 MCG/2 ML NEBU INHALATION SCH ×2 (07:45→20:22)
[2017-07-17] MEDS: BUDESONIDE 0.5 MG/2 ML NEBU INHALATION SCH ×2 (07:45→20:22)
[2017-07-17 07:49] LABS: Basophils % (A) 0 %; CH 31.3; CHCM 31.8; Eosinophils % (A) 0 %; HCT 31.1 % (34.0-46.0); HDW 2.11; HGB 10.2 gm/dL (11.4-16.0); Luc # (Auto) 0.04; Luc % (Auto) 0; Lymphocytes # (A) 0.6 k/uL (1.0-4.8); Lymphocytes % (A) 5 %; MCH 32.6 pg (25.0-35.0); MCHC 32.9 g/dL (31.0-37.0); MCV 99.1 fL (80.0-100.0); Mean Platelet Volume 8.1; Monocytes # (A) 0.3 k/uL (0-1.0); Monocytes % (A) 3 %; Neutrophils # (A) 10.2 k/uL (1.3-7.7); Neutrophils % (A) 91 %; RBC 3.14 m/uL (3.80-5.40); WBC 11.2 k/uL (3.8-10.6); WBC (Perox) 11.57
[2017-07-17 08:07] LABS: Anion Gap 4 mmol/L; Blood Urea Nitrogen 15 mg/dL (7-17); Calcium 8.6 mg/dL (8.4-10.2); Carbon Dioxide 26 mmol/L (22-30); Chloride 104 mmol/L (98-107); Glucose 129 mg/dL (74-99); Non-African American GFR(MDRD) >60 (>60 ml/min/1.73 sqM); Potassium 5.5 mmol/L (3.5-5.1); Sodium 134 mmol/L (137-145)
[2017-07-17] MEDS: methylPREDNISolone SOD SUCCI 40 MG/ML 1 ML VIAL IV SCH ×3 (08:43→23:32)
[2017-07-17] MEDS: HEPARIN SODIUM,PORCINE 5,000 UNIT/ML 1 ML VIAL SQ SCH ×3 (08:43→23:32)
[2017-07-17] MEDS: FAMOTIDINE 20 MG/2 ML VIAL IV SCH (08:44)
[2017-07-17] MEDS: ALVIMOPAN 12 MG CAPSULE PO SCH ×2 (08:44→20:31)
--- NOTE | 2017-07-17 09:07 | P.PN ---
<aTmie Ramirezne M - Last Filed: 07/17/17 09:01> Subjective 62-year-old female being seen on rounds morning currently is sitting up respiratory treatment in progress. Patient states she ambulated in the hallway this morning. Did note after the activity there is a moderate amount of bloody drainage distal from suture line abdomen is soft not distended states passing gas no bowel movement urinating no difficulty tolerating a diet reports no nausea vomiting White counts morning down to 11.2 hemoglobin 10.2 potassium was up to 5.5 status post extensive laparoscopic lysis of adhesions with an open right colectomy with an excision of a suprapubic sebaceous cyst done on July 13. Objective - Vital Signs Vital signs: Vital Signs Temp 97.6 F 07/17/17 07:30 Pulse 88 07/17/17 08:12 Resp 17 07/17/17 07:30 BP 125/66 07/17/17 07:30 Pulse Ox 95 07/17/17 07:30 Intake & Output 07/16/17 07/17/17 07/17/17 18:59 06:59 18:59 Intake Total 938 1700 Output Total 850 Balance 938 850 Intake: IV 938 1000 D5-0.45% NaCl with KCl 938 1000 20Meq/l 1,000 ml @ 125 mls/hr IV .Q8H [facility] Rx#: [id number] Oral 700 Output: Urine 850 Other: # Voids 3 - Exam Physical exam 62-year-old female currently in a chair pleasant oriented 3 states less abdominal surgical pain Lungs adequate air movement bilaterally currently on 2 L nasal cannula sats are documented 99% no cough noted no shortness of breath Heart S1-S2 audible regular Abdomen surgical dressing distal noted moderate amount of blood noted dressing suprapubic area currently dry. Soft not distended slight surgical tenderness noted few hypoactive bowel tones noted reports no nausea vomiting and tolerating a low fiber diet passing gas no stool Extremities no edema noted - Labs CBC & Chem 7: 07/17/17 06:57 07/17/17 06:57 Labs: Abnormal Lab Results - Last 24 Hours (Table) 07/16/17 07/17/17 07/17/17 Range/Units 10:40 06:57 06:57 WBC 14.2 H 11.2 H (3.8-10.6) k/uL RBC 3.27 L 3.14 L (3.80-5.40) m/uL Hgb 10.9 L 10.2 L (11.4-16.0) gm/dL Hct 33.1 L 31.1 L (34.0-46.0) % MCV 101.2 H (80.0-100.0) fL Neutrophils # 12.8 H 10.2 H (1.3-7.7) k/uL Lymphocytes # 0.7 L 0.6 L (1.0-4.8) k/uL Sodium 134 L (137-145) mmol/L Potassium 5.5 H (3.5-5.1) mmol/L Glucose 129 H (74-99) mg/dL Assessment and Plan Plan: Impression Status post right colectomy secondary to a polypoid lesion done on July 13 Rheumatoid arthritis Hypertension essential Acute exacerbation COPD History rectal bleeding Chronic constipation Chronic EtOH dependency vulvar cancer history of Hyperkalemia Plan Continue postop surgical care Pain control 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 Chapis Ramirez nurse practitioner acting as scribe for signing physician. <Brenden Burger - Last Filed: 07/17/17 15:34> Objective - Vital Signs Vital signs: Vital Signs Temp 97.9 F 07/17/17 15:27 Pulse 85 07/17/17 15:27 Resp 18 07/17/17 15:27 BP 131/81 07/17/17 15:27 Pulse Ox 94 L 07/17/17 15:27 Intake & Output 07/16/17 07/17/17 07/17/17 18:59 06:59 18:59 Intake Total 938 1700 920 Output Total 850 Balance 938 850 920 Intake: IV 938 1000 D5-0.45% NaCl with KCl 938 1000 20Meq/l 1,000 ml @ 125 mls/hr IV .Q8H [facility] Rx#: [id number] Intake, IV Titration 800 Amount D5-0.45% NaCl with KCl 800 20Meq/l 1,000 ml @ 75 mls /hr IV .[id number] [facility] Rx#: [id number] Oral 700 120 Output: Urine 850 Other: # Voids 3 - Labs CBC & Chem 7: 07/17/17 06:57 07/17/17 06:57 Labs: Abnormal Lab Results - Last 24 Hours (Table) 07/17/17 07/17/17 Range/Units 06:57 06:57 WBC 11.2 H (3.8-10.6) k/uL RBC 3.14 L (3.80-5.40) m/uL Hgb 10.2 L (11.4-16.0) gm/dL Hct 31.1 L (34.0-46.0) % Neutrophils # 10.2 H (1.3-7.7) k/uL Lymphocytes # 0.6 L (1.0-4.8) k/uL Sodium 134 L (137-145) mmol/L Potassium 5.5 H (3.5-5.1) mmol/L Glucose 129 H (74-99) mg/dL Assessment and Plan (1) Colon polyp Status: Acute Plan: As above. Patient doing better at this time. She is having bowel activity in the form of small bowel movements. She is tolerating small volume of her diet. Her readings seems to be the largest issue at this time with some ongoing wheezing. Await pulmonary evaluation today. Possible discharge tomorrow.
[2017-07-17] MEDS: HYDROmorphone PCA 5 MG/25 ML SYRINGE IV PRN ×2 (11:21→22:41)
[2017-07-17] MEDS: MULTIVITAMINS, THERA 1 EACH TAB PO SCH (12:14)
--- NOTE | 2017-07-17 12:19 | XR ---
EXAMINATION TYPE: XR chest 2V DATE OF EXAM: 07/17/2017 COMPARISON: 07/12/2017 INDICATION: COPD, presurgical clearance TECHNIQUE: Frontal and lateral views of the chest are obtained. FINDINGS: The heart size is normal. The pulmonary vasculature is normal. The lungs are clear. There is flattening the diaphragms compatible COPD. Findings are stable from co mparison. IMPRESSION: 1. No acute pulmonary process.
--- NOTE | 2017-07-17 14:50 | P.PN ---
Subjective Progress note being dictated for Dr. Cook. Patient is a 62-year-old female with a known history of hypertension and COPD and rheumatoid that is currently not taking any immunosuppressants was admitted to the hospital for right colectomy due to recently diagnosed polypoid lesion. Patient was evaluated by Dr. Ring and had endoscopic resection was unsuccessful. Patient today underwent right colectomy along with Extensive laparoscopic lysis of adhesions and excision suprapubic sebaceous cyst. Patient is currently covering of mild short of breath. And also abdominal discomfort. Otherwise denied any chest pain. No nausea or vomiting. Pain is fairly controlled. 07/14/2017 Patients breathing status improved. Patient was seen by pulmonary. Was started on IV steroids. Patient still having abdominal soreness. Has not passed flatus. Otherwise no acute overnight issues. No fever no chills. No chest pain or worsening short of breath. 07/15/2017 Patient denied any chest pain or short of breath. Patient is still complaining of abdominal pain. Patient did not have any bowel movement or pass flatness at. Patient is able to ambulate. Tolerating clear liquids. No other acute overnight issues. 07/16/2017 ambulating, tolerating exertion well. Incentive spirometer up to 1000. No bowel movement, passing flatus. Denies nausea, vomiting. Pain control with LINING PRINTER. Afebrile. WBC 14.2, hemoglobin 10.9. 07/17/2017 patient lying flat in bed without difficulty, complaining of " lung congestion". Denies cough. Ambulating in hallway, tolerating exertion well. Tolerating low fiber diet with no nausea vomiting or diarrhea. No bowel movement, tolerating flatus. Potassium 5.5. White count improving. Hemoglobin 10.2. Afebrile. Pain controlled with LINING PRINTER. Objective - Vital Signs Vital signs: Vital Signs Temp 97.6 F 07/17/17 07:30 Pulse 86 07/17/17 12:34 Resp 17 07/17/17 07:30 BP 125/66 07/17/17 07:30 Pulse Ox 95 07/17/17 07:30 Intake & Output 07/16/17 07/17/17 07/17/17 18:59 06:59 18:59 Intake Total 938 1700 920 Output Total 850 Balance 938 850 920 Intake: IV 938 1000 D5-0.45% NaCl with KCl 938 1000 20Meq/l 1,000 ml @ 125 mls/hr IV .Q8H [facility] Rx#: [id number] Intake, IV Titration 800 Amount D5-0.45% NaCl with KCl 800 20Meq/l 1,000 ml @ 75 mls /hr IV .[id number] [facility] Rx#: [id number] Oral 700 120 Output: Urine 850 Other: # Voids 3 - Exam Patient is sitting up in a chair, comfortable, no acute distress, awake alert and oriented.. HEENT: Normocephalic. Neck is supple. Pupils reactive. Oral cavity is moist. Neck reveals no JVD, carotid bruits, or thyromegaly. CHEST EXAMINATION: Trachea is central. Symmetrical expansion. No wheezing. No crackles. CARDIAC: Normal S1, S2 with no gallops. No murmurs ABDOMEN: Soft. Bowel sounds normal. No organomegaly. No abdominal bruits. Persistent Mid abdominal incision oozy-serosanguineous drainage for laparoscopic surgery. Minimal tenderness to palpation no guarding no rigidity. Extremities reveal no edema. No clubbing or cyanosis Neurologically awake, alert, oriented x3 with well-coordinated movements. Skin: no rash or skin lesions Musculoskeletal: no joint swelling or deformity. - Labs CBC & Chem 7: 07/17/17 06:57 07/17/17 06:57 Labs: Abnormal Lab Results - Last 24 Hours (Table) 07/17/17 07/17/17 Range/Units 06:57 06:57 WBC 11.2 H (3.8-10.6) k/uL RBC 3.14 L (3.80-5.40) m/uL Hgb 10.2 L (11.4-16.0) gm/dL Hct 31.1 L (34.0-46.0) % Neutrophils # 10.2 H (1.3-7.7) k/uL Lymphocytes # 0.6 L (1.0-4.8) k/uL Sodium 134 L (137-145) mmol/L Potassium 5.5 H (3.5-5.1) mmol/L Glucose 129 H (74-99) mg/dL Assessment and Plan Plan: #1 status post right colectomy secondary to polypoid lesion #2 COPD with acute exacerbation #3 hypertension #4 rheumatoid arthritis. Patient is currently not taking any immunosuppressive agents. #5 history of varicose veins #6 history of rectal bleeding #7 hyperkalemia Plan: Continue on current medication regime, nebulized bronchodilators, IV steroids, monitoring and symptomatic treatment. Close monitoring of electrolytes, diet modified to include low potassium diet . Repeat labs ordered for a.m. Aggressive pulmonary toileting with incentive spirometer reinforced. Chest x-ray ordered. The impression and plan of care has been dictated as directed. : I performed a H&P examination of this patient and discussed the same with the dictator. I agree with the dictator's note. Any additional findings/opinions/ etc. will be noted.
--- NOTE | 2017-07-17 17:45 | P.PN ---
<Savanah Mart M - Last Filed: 07/17/17 17:37> Subjective Principal diagnosis: A 62-year-old female patient with advanced and severe COPD along with various other comorbidities including rheumatoid arthritis, peripheral vascular disease and hypertension. History of DVT. The patient has a large right colonic polyp lesion/precancerous and for that reason the patient underwent a hemicolectomy. This was a right hemicolectomy. I'm seeing this patient postop day #4. The patient is doing well. Patient has been ambulating with physical therapy today and states she has been wheezy with activity. Minimal cough and congestion. She is using the incentive spirometer. She is on her bronchodilators. The chest x-ray from 07/17/2017 has been reviewed and showed no acute pulmonary process. Lung sounds are diminished, with no rails,rhonchi or wheezes. No nausea no vomiting. No abdominal pain. There has been a moderate amount of bloody drainage distal from the suture line of the abdomen after the ambulation. Abdomen is nondistended. No change in mental status. No other significant events over the past 24 hours. Objective - Vital Signs Vital signs: Vital Signs Temp 97.9 F 07/17/17 15:27 Pulse 85 07/17/17 15:27 Resp 18 07/17/17 15:27 BP 131/81 07/17/17 15:27 Pulse Ox 94 L 07/17/17 15:27 Intake & Output 07/16/17 07/17/17 07/17/17 18:59 06:59 18:59 Intake Total 938 1700 920 Output Total 850 Balance 938 850 920 Intake: IV 938 1000 D5-0.45% NaCl with KCl 938 1000 20Meq/l 1,000 ml @ 125 mls/hr IV .Q8H [facility] Rx#: [id number] Intake, IV Titration 800 Amount D5-0.45% NaCl with KCl 800 20Meq/l 1,000 ml @ 75 mls /hr IV .[id number] [facility] Rx#: [id number] Oral 700 120 Output: Urine 850 Other: # Voids 3 - Exam Gen. appearance No acute distress, oriented 3. HEENT examination is grossly unremarkable. Mucous membranes are moist. No oral lesions. Neck supple. Full range of motion. No adenopathy or thyromegaly. Cardiovascular examination reveals regular rhythm rate. S1-S2 normal. No S3- S4 or murmur. Lungs reveal diminished but clear breath sounds. No wheezes or rhonchi. No crackles. Breath sounds are equal bilaterally. Slight prolongation on forced maneuver. Abdomen soft. No bowel sounds are heard. Tender on palpation over the incision. Extremities are intact. No cyanosis clubbing or edema. Skin without rash. The surgical wound is dry clean and intact. Neurologic examination is nonfocal. Patient is alert and awake and oriented. Skeletal system no joint deformities or fractures or active arthritis. - Labs CBC & Chem 7: 07/17/17 06:57 07/17/17 06:57 Labs: Abnormal Lab Results - Last 24 Hours (Table) 07/17/17 07/17/17 Range/Units 06:57 06:57 WBC 11.2 H (3.8-10.6) k/uL RBC 3.14 L (3.80-5.40) m/uL Hgb 10.2 L (11.4-16.0) gm/dL Hct 31.1 L (34.0-46.0) % Neutrophils # 10.2 H (1.3-7.7) k/uL Lymphocytes # 0.6 L (1.0-4.8) k/uL Sodium 134 L (137-145) mmol/L Potassium 5.5 H (3.5-5.1) mmol/L Glucose 129 H (74-99) mg/dL Assessment and Plan Plan: Assessment 1 right hemicolectomy and the patient is postop day #4 2 advanced oxygen-dependent COPD 3 chronic hypoxic history failure secondary to COPD 4 chronic dyspnea secondary to COPD 5 hypertension 6 rheumatoid arthritis 7 chronic alcoholism, currently inactive in stable Plan Patient has good pain control with Dilaudid SWEEPING COMPOUND BLENDER. She is also on [place] for pain control. Patient is using incentive spirometer. Some exertional wheezing reported by patient with ambulation, relieved by rest and bronchodilators. Oxygen is being provided to maintain a saturation above 90%. Early mobility. Advance diet as tolerated. No significant complications postoperatively the patient's condition is stable for now. I performed a history & physical examination of the patient and discussed their management with my nurse practitioner, Savanah Mart. I reviewed the nurse practitioner's note and agree with the documented findings and plan of care. <Jose Elias Goodman - Last Filed: 07/17/17 19:02> Objective - Vital Signs Vital signs: Vital Signs Temp 97.9 F 07/17/17 15:27 Pulse 85 07/17/17 15:27 Resp 18 07/17/17 15:27 BP 131/81 07/17/17 15:27 Pulse Ox 94 L 07/17/17 15:27 Intake & Output 07/17/17 07/17/17 07/18/17 06:59 18:59 06:59 Intake Total 1700 920 Output Total 850 Balance 850 920 Intake: IV 1000 D5-0.45% NaCl with KCl 1000 20Meq/l 1,000 ml @ 125 mls/hr IV .Q8H [facility] Rx#: [id number] Intake, IV Titration 800 Amount D5-0.45% NaCl with KCl 800 20Meq/l 1,000 ml @ 75 mls /hr IV .[id number] [facility] Rx#: [id number] Oral 700 120 Output: Urine 850 Other: # Voids 3 - Labs CBC & Chem 7: 07/17/17 06:57 07/17/17 06:57 Labs: Abnormal Lab Results - Last 24 Hours (Table) 07/17/17 07/17/17 Range/Units 06:57 06:57 WBC 11.2 H (3.8-10.6) k/uL RBC 3.14 L (3.80-5.40) m/uL Hgb 10.2 L (11.4-16.0) gm/dL Hct 31.1 L (34.0-46.0) % Neutrophils # 10.2 H (1.3-7.7) k/uL Lymphocytes # 0.6 L (1.0-4.8) k/uL Sodium 134 L (137-145) mmol/L Potassium 5.5 H (3.5-5.1) mmol/L Glucose 129 H (74-99) mg/dL Assessment and Plan Plan: Doing this joint evaluation with the nurse practitioner. I evaluated and so the patient today. The patient is not having any respiratory distress. She was complaining of some lung congestion. No significant cough or sputum production. No major respiratory distress. She is resting comfortably in bed. Hemoglobin stable at 10.2. She is afebrile and her pain is well controlled with a SWEEPING COMPOUND BLENDER pump. I was present time of evaluation. We'll continue to follow and make further recommendations accordingly.
[2017-07-17] MEDS: FAMOTIDINE 20 MG TAB PO SCH (20:31)
[2017-07-17] MEDS: MONTELUKAST 10 MG TAB PO SCH (20:31)
[2017-07-18] MEDS: KETOROLAC 30 MG/ML 1 ML VIAL IVP SCH ×3 (05:28→17:49)
[2017-07-18] MEDS: METOCLOPRAMIDE 5 MG/ML 2 ML VIAL IVP SCH ×3 (05:28→17:49)
[2017-07-18 06:50] LABS: Basophils % (A) 0 %; CH 31.5; CHCM 31.8; Eosinophils % (A) 0 %; HCT 28.8 % (34.0-46.0); HDW 2.11; HGB 9.6 gm/dL (11.4-16.0); Luc # (Auto) 0.04; Luc % (Auto) 0; Lymphocytes # (A) 0.7 k/uL (1.0-4.8); Lymphocytes % (A) 6 %; MCH 33.2 pg (25.0-35.0); MCHC 33.3 g/dL (31.0-37.0); MCV 99.7 fL (80.0-100.0); Mean Platelet Volume 7.7; Monocytes # (A) 0.3 k/uL (0-1.0); Monocytes % (A) 3 %; Neutrophils # (A) 9.2 k/uL (1.3-7.7); Neutrophils % (A) 90 %; RBC 2.89 m/uL (3.80-5.40); WBC 10.2 k/uL (3.8-10.6); WBC (Perox) 10.83
[2017-07-18 07:13] LABS: Anion Gap 4 mmol/L; Blood Urea Nitrogen 20 mg/dL (7-17); Calcium 8.4 mg/dL (8.4-10.2); Carbon Dioxide 26 mmol/L (22-30); Chloride 105 mmol/L (98-107); Glucose 117 mg/dL (74-99); Non-African American GFR(MDRD) >60 (>60 ml/min/1.73 sqM); Potassium 5.6 mmol/L (3.5-5.1); Sodium 135 mmol/L (137-145)
[2017-07-18] MEDS: LACTATED RINGERS 1,000 ML IV SCH (07:54)
[2017-07-18] MEDS: D5-0.45% NACL WITH KCL 20MEQ/L 1,000 ML IV SCH ×2 (07:55→17:52)
[2017-07-18] MEDS: HEPARIN SODIUM,PORCINE 5,000 UNIT/ML 1 ML VIAL SQ SCH ×2 (08:06→15:21)
[2017-07-18] MEDS: methylPREDNISolone SOD SUCCI 40 MG/ML 1 ML VIAL IV SCH ×2 (08:06→15:21)
[2017-07-18] MEDS: ALVIMOPAN 12 MG CAPSULE PO SCH ×2 (08:06→21:43)
[2017-07-18] MEDS: FAMOTIDINE 20 MG TAB PO SCH ×2 (08:07→21:43)
[2017-07-18] MEDS: IPRATROPIUM-ALBUTEROL 3 ML NEB INHALATION PRN ×3 (08:16→20:25)
[2017-07-18] MEDS: BUDESONIDE 0.5 MG/2 ML NEBU INHALATION SCH ×2 (08:16→20:25)
[2017-07-18] MEDS: FORMOTEROL FUMARATE 20 MCG/2 ML NEBU INHALATION SCH ×2 (08:25→20:25)
[2017-07-18] MEDS: HYDROmorphone PCA 5 MG/25 ML SYRINGE IV PRN ×3 (08:45→21:51)
[2017-07-18] MEDS: MULTIVITAMINS, THERA 1 EACH TAB PO SCH (11:41)
[2017-07-18] MEDS ORDERED: SODIUM POLYSTYRENE SULFONATE 15 GM/60 ML BOTTLE PO ONE (12:16)
--- NOTE | 2017-07-18 12:17 | P.PN ---
Subjective Principal diagnosis: Right-sided colon polyp Patient still complaining of wheezing and shortness of breath. Mild abdominal discomfort. She had additional bowel movements some of which had a small amount of blood present. Appetite is improving. Still with some bloody drainage from the inferior aspect of her incision. Objective - Vital Signs Vital signs: Vital Signs Temp 98.4 F 07/18/17 07:00 Pulse 90 07/18/17 08:33 Resp 18 07/18/17 08:00 BP 137/51 07/18/17 07:00 Pulse Ox 94 L 07/18/17 07:00 Intake & Output 07/17/17 07/18/17 07/18/17 18:59 06:59 18:59 Intake Total 920 1400 200 Balance 920 1400 200 Intake: Intake, IV Titration 800 1200 Amount D5-0.45% NaCl with KCl 800 1200 20Meq/l 1,000 ml @ 75 mls /hr IV .[id number] [facility] Rx#: [id number] Oral 120 200 200 Other: Voiding Method Toilet # Voids 3 - Exam Abdomen: Soft, nondistended, hematoma present at the inferior aspect of incision with ecchymosis, small amount of old blood emanating from the inferior staple line - Labs CBC & Chem 7: 07/18/17 06:21 07/18/17 06:21 Labs: Abnormal Lab Results - Last 24 Hours (Table) 07/18/17 07/18/17 Range/Units 06:21 06:21 RBC 2.89 L (3.80-5.40) m/uL Hgb 9.6 L (11.4-16.0) gm/dL Hct 28.8 L (34.0-46.0) % Neutrophils # 9.2 H (1.3-7.7) k/uL Lymphocytes # 0.7 L (1.0-4.8) k/uL Sodium 135 L (137-145) mmol/L Potassium 5.6 H (3.5-5.1) mmol/L BUN 20 H (7-17) mg/dL Glucose 117 H (74-99) mg/dL Assessment and Plan (1) Colon polyp Narrative/Plan: Continue low fiber diet. Discontinue IV fluids. One dose of Kayexalate for elevated potassium level. Pulmonary toilet. Status: Acute
--- NOTE | 2017-07-18 13:44 | P.PN ---
<Savanah Mart M - Last Filed: 07/18/17 13:30> Subjective Principal diagnosis: COPD, shortness of breath ,status post right colectomy A 62-year-old female patient with advanced and severe COPD along with various other comorbidities including rheumatoid arthritis, peripheral vascular disease and hypertension. History of DVT. The patient has a large right colonic polyp lesion/precancerous and for that reason the patient underwent a hemicolectomy. This was a right hemicolectomy. I'm seeing this patient postop day #4. The patient is doing well. Patient has been ambulating with physical therapy today and states she has been wheezy with activity. Minimal cough and congestion. She is using the incentive spirometer. She is on her bronchodilators. The chest x-ray from 07/17/2017 has been reviewed and showed no acute pulmonary process. Lung sounds are diminished, with no rails,rhonchi or wheezes. No nausea no vomiting. No abdominal pain. There has been a moderate amount of bloody drainage distal from the suture line of the abdomen after the ambulation. Abdomen is nondistended. No change in mental status. No other significant events over the past 24 hours. On 07/18/2017 the patient is seen in follow-up. She states she still has significant shortness of breath and wheezing with ambulation, and she is not able to effectively cough do to the abdominal incision and the pain associated with it. She is using incentive spirometer, her best IS effort is anywhere from 750 [id number]. She continues on her bronchodilators, IV Solu-Medrol, Pulmicort and Perforomist nebulized treatments. She has been afebrile and hemodynamically stable. On examination her lungs sounds remain diminished throughout the lung guzman with a few faint end expiratory wheezes anteriorly. No signs of acute respiratory distress at this time. Patient remains on Dilaudid WRAPPER COUNTER with oral hydrocodone for pain control which she states controls her pain with the exception for the coughing episodes. She is tolerating oral intake, abdomen is nondistended. Anticipate discharge home in the next 24 hours. Objective - Vital Signs Vital signs: Vital Signs Temp 98.4 F 07/18/17 07:00 Pulse 90 07/18/17 08:33 Resp 18 07/18/17 08:00 BP 137/51 07/18/17 07:00 Pulse Ox 94 L 07/18/17 07:00 Intake & Output 07/17/17 07/18/17 07/18/17 18:59 06:59 18:59 Intake Total 920 1400 200 Balance 920 1400 200 Intake: Intake, IV Titration 800 1200 Amount D5-0.45% NaCl with KCl 800 1200 20Meq/l 1,000 ml @ 75 mls /hr IV .[id number] [facility] Rx#: [id number] Oral 120 200 200 Other: Voiding Method Toilet # Voids 3 - Exam Gen. appearance No acute distress, oriented 3. HEENT examination is grossly unremarkable. Mucous membranes are moist. No oral lesions. Neck supple. Full range of motion. No adenopathy or thyromegaly. Cardiovascular examination reveals regular rhythm rate. S1-S2 normal. No S3- S4 or murmur. Lungs reveal diminished but clear breath sounds. No wheezes or rhonchi. No crackles. Breath sounds are equal bilaterally. Slight prolongation on forced maneuver. Abdomen soft. No bowel sounds are heard. Tender on palpation over the incision. Extremities are intact. No cyanosis clubbing or edema. Skin without rash. The surgical wound is dry clean and intact. Neurologic examination is nonfocal. Patient is alert and awake and oriented. Skeletal system no joint deformities or fractures or active arthritis. - Labs CBC & Chem 7: 07/18/17 06:21 07/18/17 06:21 Labs: Abnormal Lab Results - Last 24 Hours (Table) 07/18/17 07/18/17 Range/Units 06:21 06:21 RBC 2.89 L (3.80-5.40) m/uL Hgb 9.6 L (11.4-16.0) gm/dL Hct 28.8 L (34.0-46.0) % Neutrophils # 9.2 H (1.3-7.7) k/uL Lymphocytes # 0.7 L (1.0-4.8) k/uL Sodium 135 L (137-145) mmol/L Potassium 5.6 H (3.5-5.1) mmol/L BUN 20 H (7-17) mg/dL Glucose 117 H (74-99) mg/dL Assessment and Plan Plan: Assessment 1 right hemicolectomy and the patient is postop day #5. 2 advanced oxygen-dependent COPD 3 chronic hypoxic history failure secondary to COPD 4 chronic dyspnea secondary to COPD 5 hypertension 6 rheumatoid arthritis 7 chronic alcoholism, currently inactive in stable Plan Continue with nebulized Pulmicort, Perforomist and Duoneb name last treatments. Encourage incentive spirometer, early ambulation and pulmonary toileting. Maintain pain control. Chest x-ray from 07/17/2017 was reviewed and revealed no acute pulmonary process. Some exertional wheezing reported by patient with ambulation, relieved by rest and bronchodilators, but her overall pulmonary status is stable. Oxygen is being provided to maintain a saturation above 90%. Advance diet as tolerated. No significant complications postoperatively the patient's condition is stable for now. I performed a history & physical examination of the patient and discussed their management with my nurse practitioner, Savanah Mart. I reviewed the nurse practitioner's note and agree with the documented findings and plan of care. <Jose Elias Goodman - Last Filed: 07/18/17 14:32> Objective - Vital Signs Vital signs: Vital Signs Temp 98.4 F 07/18/17 07:00 Pulse 94 07/18/17 14:01 Resp 18 07/18/17 08:00 BP 137/51 07/18/17 07:00 Pulse Ox 94 L 07/18/17 07:00 Intake & Output 07/17/17 07/18/17 07/18/17 18:59 06:59 18:59 Intake Total 920 1400 200 Balance 920 1400 200 Intake: Intake, IV Titration 800 1200 Amount D5-0.45% NaCl with KCl 800 1200 20Meq/l 1,000 ml @ 75 mls /hr IV .[id number] [facility] Rx#: [id number] Oral 120 200 200 Other: Voiding Method Toilet # Voids 3 - Labs CBC & Chem 7: 07/18/17 06:21 07/18/17 06:21 Labs: Abnormal Lab Results - Last 24 Hours (Table) 07/18/17 07/18/17 Range/Units 06:21 06:21 RBC 2.89 L (3.80-5.40) m/uL Hgb 9.6 L (11.4-16.0) gm/dL Hct 28.8 L (34.0-46.0) % Neutrophils # 9.2 H (1.3-7.7) k/uL Lymphocytes # 0.7 L (1.0-4.8) k/uL Sodium 135 L (137-145) mmol/L Potassium 5.6 H (3.5-5.1) mmol/L BUN 20 H (7-17) mg/dL Glucose 117 H (74-99) mg/dL Assessment and Plan Plan: This is a joint evaluation that was done with the nurse practitioner. I attested the information presented above. The patient is still being monitored postop following a right hemicolectomy. She is postop day #5. She is on bronchodilators and systemic steroids which we'll continue. We'll gradually taper as the patient's breathing status improves. The patient is ambulating. Her pain is under good control. Will follow. We'll taper the steroids within next 24 hours.
[2017-07-18] MEDS: guaiFENesin-DM 600/30MG 1 EACH TAB.ER.12H PO SCH ×2 (15:20→21:43)
--- NOTE | 2017-07-18 15:27 | P.PN ---
Subjective Progress note being dictated for Dr. Cook. Patient is a 62-year-old female with a known history of hypertension and COPD and rheumatoid that is currently not taking any immunosuppressants was admitted to the hospital for right colectomy due to recently diagnosed polypoid lesion. Patient was evaluated by Dr. Ring and had endoscopic resection was unsuccessful. Patient today underwent right colectomy along with Extensive laparoscopic lysis of adhesions and excision suprapubic sebaceous cyst. Patient is currently covering of mild short of breath. And also abdominal discomfort. Otherwise denied any chest pain. No nausea or vomiting. Pain is fairly controlled. 07/14/2017 Patients breathing status improved. Patient was seen by pulmonary. Was started on IV steroids. Patient still having abdominal soreness. Has not passed flatus. Otherwise no acute overnight issues. No fever no chills. No chest pain or worsening short of breath. 07/15/2017 Patient denied any chest pain or short of breath. Patient is still complaining of abdominal pain. Patient did not have any bowel movement or pass flatness at. Patient is able to ambulate. Tolerating clear liquids. No other acute overnight issues. 07/16/2017 ambulating, tolerating exertion well. Incentive spirometer up to 1000. No bowel movement, passing flatus. Denies nausea, vomiting. Pain control with INTERNAL GRINDER SET UP OPERATOR. Afebrile. WBC 14.2, hemoglobin 10.9. 07/17/2017 patient lying flat in bed without difficulty, complaining of " lung congestion". Denies cough. Ambulating in hallway, tolerating exertion well. Tolerating low fiber diet with no nausea vomiting or diarrhea. No bowel movement, tolerating flatus. Potassium 5.5. White count improving. Hemoglobin 10.2. Afebrile. Pain controlled with INTERNAL GRINDER SET UP OPERATOR. 07/18/2017. Maintaining O2 sats in the 90s on 2 L nasal cannula in a patient who does not wear oxygen at home. Incentive spirometer up to 750 to 1000. Breathing improving on nebulized bronchodilators and steroids. Pain controlled with INTERNAL GRINDER SET UP OPERATOR. Ambulating in hallway, tolerating exertion well. Afebrile. Soft bowel movement with maroon tinged reported. Hemoglobin 9.6. Tolerating low fiber diet/low potassum. Potassium 5.6. Objective - Vital Signs Vital signs: Vital Signs Temp 97.4 F L 07/18/17 14:36 Pulse 93 07/18/17 14:36 Resp 18 07/18/17 14:36 BP 150/65 07/18/17 14:36 Pulse Ox 93 L 07/18/17 14:36 Intake & Output 07/17/17 07/18/17 07/18/17 18:59 06:59 18:59 Intake Total 920 1400 700 Balance 920 1400 700 Intake: Intake, IV Titration 800 1200 500 Amount D5-0.45% NaCl with KCl 800 1200 500 20Meq/l 1,000 ml @ 75 mls /hr IV .[id number] LATESHA Rx#: [id number] Oral 120 200 200 Other: Voiding Method Toilet # Voids 3 - Exam Patient is sitting up in a chair, comfortable, no acute distress, awake alert and oriented.. HEENT: Normocephalic. Neck is supple. Pupils reactive. Oral cavity is moist. Neck reveals no JVD, carotid bruits, or thyromegaly. CHEST EXAMINATION: Trachea is central. Symmetrical expansion. Occasional scattered expiratory wheezing. No crackles. CARDIAC: Normal S1, S2 with no gallops. No murmurs ABDOMEN: Soft. Bowel sounds normal. No organomegaly. No abdominal bruits. Improving Mid abdominal incision oozy-serosanguineous drainage for laparoscopic surgery. Minimal tenderness to palpation no guarding no rigidity. Extremities reveal no edema. No clubbing or cyanosis Neurologically awake, alert, oriented x3 with well-coordinated movements. Skin: no rash or skin lesions Musculoskeletal: no joint swelling or deformity. - Labs CBC & Chem 7: 07/18/17 06:21 07/18/17 06:21 Labs: Abnormal Lab Results - Last 24 Hours (Table) 07/18/17 07/18/17 Range/Units 06:21 06:21 RBC 2.89 L (3.80-5.40) m/uL Hgb 9.6 L (11.4-16.0) gm/dL Hct 28.8 L (34.0-46.0) % Neutrophils # 9.2 H (1.3-7.7) k/uL Lymphocytes # 0.7 L (1.0-4.8) k/uL Sodium 135 L (137-145) mmol/L Potassium 5.6 H (3.5-5.1) mmol/L BUN 20 H (7-17) mg/dL Glucose 117 H (74-99) mg/dL Assessment and Plan Plan: #1 status post right colectomy secondary to polypoid lesion #2 COPD with acute exacerbation #3 hypertension #4 rheumatoid arthritis. Patient is currently not taking any immunosuppressive agents. #5 history of varicose veins #6 history of rectal bleeding #7 hyperkalemia Plan: Continue on current medication regime, nebulized bronchodilators, IV steroids, monitoring and symptomatic treatment. Kayexalate ordered. Close monitoring of electrolytes. Repeat labs ordered for a.m. Aggressive pulmonary toileting with incentive spirometer reinforced. Discharge planning in progress. The impression and plan of care has been dictated as directed. : I performed a H&P examination of this patient and discussed the same with the dictator. I agree with the dictator's note. Any additional findings/opinions/ etc. will be noted.
[2017-07-18] MEDS: MONTELUKAST 10 MG TAB PO SCH (21:43)
[2017-07-19] MEDS: HEPARIN SODIUM,PORCINE 5,000 UNIT/ML 1 ML VIAL SQ SCH ×5 (01:11→23:32)
[2017-07-19] MEDS: methylPREDNISolone SOD SUCCI 40 MG/ML 1 ML VIAL IV SCH ×4 (01:11→23:33)
[2017-07-19] MEDS: METOCLOPRAMIDE 5 MG/ML 2 ML VIAL IVP SCH ×5 (01:12→23:33)
[2017-07-19] MEDS: KETOROLAC 30 MG/ML 1 ML VIAL IVP SCH ×2 (01:12→05:18)
[2017-07-19] MEDS: HYDROmorphone PCA 5 MG/25 ML SYRINGE IV PRN ×4 (01:56→16:52)
[2017-07-19] MEDS: IPRATROPIUM-ALBUTEROL 3 ML NEB INHALATION PRN ×4 (05:38→18:59)
[2017-07-19] MEDS: LACTATED RINGERS 1,000 ML IV SCH (06:49)
[2017-07-19 08:07] LABS: Basophils % (A) 0 %; CHCM 32.2; Eosinophils % (A) 0 %; HCT 30.6 % (34.0-46.0); HGB 9.8 gm/dL (11.4-16.0); Luc # (Auto) 0.08; Luc % (Auto) 1; Lymphocytes # (A) 0.7 k/uL (1.0-4.8); Lymphocytes % (A) 4 %; MCH 32.1 pg (25.0-35.0); MCHC 32.1 g/dL (31.0-37.0); MCV 100.1 fL (80.0-100.0); Macrocytosis Slight; Mean Platelet Volume 7.8; Monocytes # (A) 0.5 k/uL (0-1.0); Monocytes % (A) 3 %; Neutrophils % (A) 92 %; RBC 3.05 m/uL (3.80-5.40); WBC 16.2 k/uL (3.8-10.6); WBC (Perox) 16.51
[2017-07-19 08:13] LABS: Anion Gap 5 mmol/L; Blood Urea Nitrogen 28 mg/dL (7-17); Calcium 8.5 mg/dL (8.4-10.2); Carbon Dioxide 28 mmol/L (22-30); Chloride 103 mmol/L (98-107); Glucose 113 mg/dL (74-99); Non-African American GFR(MDRD) >60 (>60 ml/min/1.73 sqM); Potassium 5.2 mmol/L (3.5-5.1); Sodium 136 mmol/L (137-145)
[2017-07-19] MEDS: guaiFENesin-DM 600/30MG 1 EACH TAB.ER.12H PO SCH ×2 (08:35→20:38)
[2017-07-19] MEDS: ALVIMOPAN 12 MG CAPSULE PO SCH ×2 (08:35→20:38)
[2017-07-19] MEDS: FAMOTIDINE 20 MG TAB PO SCH ×2 (08:35→20:38)
--- NOTE | 2017-07-19 08:37 | P.PN ---
<Tamie Ramirezne M - Last Filed: 07/19/17 08:37> Subjective 62-year-old female being seen this morning. Patient states she has been up ambulating in the hallway. Pulse ox sat on room air with activity were documented 86%. Patient does state the pain medication effective for pain control. currently using IV WET ROASTER dilaudid with oral [place] less bloody drainage from inferior aspect of surgical incision suture line well approximated with jaki in place. Patient states had a small formed bowel movement this morning with a scant amount of bloody drainage noted. Patient states breathing feels improved. Not quite ready to go home I think I need another 24 hours status post extensive laparoscopic lysis of adhesions with an open right colectomy with an excision of a suprapubic sebaceous cyst done on July 13. . Hemoglobin on the was 9.8 Objective - Vital Signs Vital signs: Vital Signs Temp 98.0 F 07/19/17 07:00 Pulse 78 07/19/17 07:00 Resp 16 07/19/17 07:00 BP 152/71 07/19/17 07:00 Pulse Ox 93 L 07/19/17 07:00 Intake & Output 07/18/17 07/19/17 07/19/17 18:59 06:59 18:59 Intake Total 700 690 Output Total 200 Balance 700 490 Weight 68.039 kg 68.039 kg Intake: Intake, IV Titration 500 210 Amount Bupivacaine (Pf) 0.5% 31. 50 3 ml fentaNYL (PF) 1,250 mcg In Sodium Chloride 0. 9% 194 ml @ Per Protocol EPIDURAL .Q0M PRN Rx#: [id number] D5-0.45% NaCl with KCl 500 160 20Meq/l 1,000 ml @ 75 mls /hr IV .[id number] LATESHA Rx#: [id number] Oral 200 480 Output: Urine 200 Other: Voiding Method Toilet Toilet # Voids 1 - Exam Physical exam 62-year-old female being seen pleasant cooperative oriented 3 Lungs diminished at the bases not able to appreciate any wheezing no cough noted states breathing feels improved nasal cannula at 2 L sats are 93% no conversational dyspnea noted heart S1-S2 audible regular Abdomen purple ecchymotic bruising noted soft not distended surgical tenderness appropriate bowel tones present jaki intact suture line well approximated a scant amount bloody drainage noted on the dressing abdominal binder in place no nausea no vomiting tolerating diet Extremities no edema noted - Labs CBC & Chem 7: 07/19/17 07:40 07/19/17 07:40 Labs: Abnormal Lab Results - Last 24 Hours (Table) 07/19/17 07/19/17 Range/Units 07:40 07:40 WBC 16.2 H (3.8-10.6) k/uL RBC 3.05 L (3.80-5.40) m/uL Hgb 9.8 L (11.4-16.0) gm/dL Hct 30.6 L (34.0-46.0) % MCV 100.1 H (80.0-100.0) fL Neutrophils # 15.0 H (1.3-7.7) k/uL Lymphocytes # 0.7 L (1.0-4.8) k/uL Sodium 136 L (137-145) mmol/L Potassium 5.2 H (3.5-5.1) mmol/L BUN 28 H (7-17) mg/dL Glucose 113 H (74-99) mg/dL Assessment and Plan Plan: Impression Status post right colectomy secondary to a polypoid lesion done on July 13 Rheumatoid arthritis Hypertension essential Acute exacerbation COPD History rectal bleeding Chronic constipation Chronic EtOH dependency vulvar cancer history of Hyperkalemia Leukocytosis suspect steroid induced Plan Continue postop surgical care Pain control WET ROASTER dilaudid, , Toradol as ordered Resume home meds as appropriate Increase activity Encourage the use of the incentive spirometer use every 1 hour while awake Titrate the O2 down and keep sats greater than 90% Repeat labs in the morning hold all potassium supplements DVT and GI prophylaxis Anticipate discharge in the next 24-48 hours The above impression and plan of care have been discussed and directed by signing physician. Chapis Ramirez nurse practitioner acting as scribe for signing physician. <Brenden Burger - Last Filed: 07/19/17 16:52> Objective - Vital Signs Vital signs: Vital Signs Temp 98.2 F 07/19/17 15:00 Pulse 64 07/19/17 15:00 Resp 16 07/19/17 15:00 BP 132/68 07/19/17 15:00 Pulse Ox 95 07/19/17 15:00 Intake & Output 07/18/17 07/19/17 07/19/17 18:59 06:59 18:59 Intake Total 700 690 600 Output Total 200 Balance 700 490 600 Weight 68.039 kg 68.039 kg Intake: Intake, IV Titration 500 210 Amount Bupivacaine (Pf) 0.5% 31. 50 3 ml fentaNYL (PF) 1,250 mcg In Sodium Chloride 0. 9% 194 ml @ Per Protocol EPIDURAL .Q0M PRN Rx#: [id number] D5-0.45% NaCl with KCl 500 160 20Meq/l 1,000 ml @ 75 mls /hr IV .[id number] LATESHA Rx#: [id number] Oral 200 480 600 Output: Urine 200 Other: Voiding Method Toilet Toilet # Voids 1 - Labs CBC & Chem 7: 07/19/17 07:40 07/19/17 07:40 Labs: Abnormal Lab Results - Last 24 Hours (Table) 07/19/17 07/19/17 Range/Units 07:40 07:40 WBC 16.2 H (3.8-10.6) k/uL RBC 3.05 L (3.80-5.40) m/uL Hgb 9.8 L (11.4-16.0) gm/dL Hct 30.6 L (34.0-46.0) % MCV 100.1 H (80.0-100.0) fL Neutrophils # 15.0 H (1.3-7.7) k/uL Lymphocytes # 0.7 L (1.0-4.8) k/uL Sodium 136 L (137-145) mmol/L Potassium 5.2 H (3.5-5.1) mmol/L BUN 28 H (7-17) mg/dL Glucose 113 H (74-99) mg/dL Assessment and Plan (1) Colon polyp Status: Acute Plan: As above. Patient having some burning pain in the upper aspect of her incision today. She is ambulating. She is tolerating her diet. Denies nausea or vomiting. Small bowel movement since yesterday. White blood cell count became elevated once again. She is afebrile. Pulmonary status is stable and possibly improved today.
[2017-07-19] MEDS: FORMOTEROL FUMARATE 20 MCG/2 ML NEBU INHALATION SCH ×2 (09:15→18:59)
[2017-07-19] MEDS: BUDESONIDE 0.5 MG/2 ML NEBU INHALATION SCH ×2 (09:15→18:59)
[2017-07-19] MEDS: MULTIVITAMINS, THERA 1 EACH TAB PO SCH (12:04)
[2017-07-19] MEDS: HYDROcodone/APAP 7.5-325MG 1 EACH TAB PO PRN ×2 (12:04→21:02)
--- NOTE | 2017-07-19 15:21 | P.PN ---
Subjective Progress note being dictated for Dr. Cook. Patient is a 62-year-old female with a known history of hypertension and COPD and rheumatoid that is currently not taking any immunosuppressants was admitted to the hospital for right colectomy due to recently diagnosed polypoid lesion. Patient was evaluated by Dr. Ring and had endoscopic resection was unsuccessful. Patient today underwent right colectomy along with Extensive laparoscopic lysis of adhesions and excision suprapubic sebaceous cyst. Patient is currently covering of mild short of breath. And also abdominal discomfort. Otherwise denied any chest pain. No nausea or vomiting. Pain is fairly controlled. 07/14/2017 Patients breathing status improved. Patient was seen by pulmonary. Was started on IV steroids. Patient still having abdominal soreness. Has not passed flatus. Otherwise no acute overnight issues. No fever no chills. No chest pain or worsening short of breath. 07/15/2017 Patient denied any chest pain or short of breath. Patient is still complaining of abdominal pain. Patient did not have any bowel movement or pass flatness at. Patient is able to ambulate. Tolerating clear liquids. No other acute overnight issues. 07/16/2017 ambulating, tolerating exertion well. Incentive spirometer up to 1000. No bowel movement, passing flatus. Denies nausea, vomiting. Pain control with DISTRICT WIRE CHIEF. Afebrile. WBC 14.2, hemoglobin 10.9. 07/17/2017 patient lying flat in bed without difficulty, complaining of " lung congestion". Denies cough. Ambulating in hallway, tolerating exertion well. Tolerating low fiber diet with no nausea vomiting or diarrhea. No bowel movement, tolerating flatus. Potassium 5.5. White count improving. Hemoglobin 10.2. Afebrile. Pain controlled with DISTRICT WIRE CHIEF. 07/18/2017. Maintaining O2 sats in the 90s on 2 L nasal cannula in a patient who does not wear oxygen at home. Incentive spirometer up to 750 to 1000. Breathing improving on nebulized bronchodilators and steroids. Pain controlled with DISTRICT WIRE CHIEF. Ambulating in hallway, tolerating exertion well. Afebrile. Soft bowel movement with maroon tinged reported. Hemoglobin 9.6. Tolerating low fiber diet/low potassum. Potassium 5.6. 07/19/2017 ambulating in [place]. Continues on Dilaudid DISTRICT WIRE CHIEF, pain controlled. Positive bowel movement. Hemoglobin 9.8. Potassium 5.2. Objective - Vital Signs Vital signs: Vital Signs Temp 98.2 F 07/19/17 15:00 Pulse 64 07/19/17 15:00 Resp 16 07/19/17 15:00 BP 132/68 07/19/17 15:00 Pulse Ox 95 07/19/17 15:00 Intake & Output 07/18/17 07/19/17 07/19/17 18:59 06:59 18:59 Intake Total 700 690 600 Output Total 200 Balance 700 490 600 Weight 68.039 kg 68.039 kg Intake: Intake, IV Titration 500 210 Amount Bupivacaine (Pf) 0.5% 31. 50 3 ml fentaNYL (PF) 1,250 mcg In Sodium Chloride 0. 9% 194 ml @ Per Protocol EPIDURAL .Q0M PRN Rx#: [id number] D5-0.45% NaCl with KCl 500 160 20Meq/l 1,000 ml @ 75 mls /hr IV .[id number] LATESHA Rx#: [id number] Oral 200 480 600 Output: Urine 200 Other: Voiding Method Toilet Toilet # Voids 1 - Exam Patient is sitting up in a chair, comfortable, no acute distress, awake alert and oriented.. HEENT: Normocephalic. Neck is supple. Pupils reactive. Oral cavity is moist. Neck reveals no JVD, carotid bruits, or thyromegaly. CHEST EXAMINATION: Trachea is central. Symmetrical expansion. No wheezing. No crackles. CARDIAC: Normal S1, S2 with no gallops. No murmurs ABDOMEN: Soft. Bowel sounds normal. No organomegaly. No abdominal bruits. Decreasing Mid abdominal incision oozy-serosanguineous drainage for laparoscopic surgery. Minimal tenderness to palpation no guarding no rigidity. Extremities reveal no edema. No clubbing or cyanosis Neurologically awake, alert, oriented x3 with well-coordinated movements. Skin: no rash or skin lesions Musculoskeletal: no joint swelling or deformity. - Labs CBC & Chem 7: 07/19/17 07:40 07/19/17 07:40 Labs: Abnormal Lab Results - Last 24 Hours (Table) 07/19/17 07/19/17 Range/Units 07:40 07:40 WBC 16.2 H (3.8-10.6) k/uL RBC 3.05 L (3.80-5.40) m/uL Hgb 9.8 L (11.4-16.0) gm/dL Hct 30.6 L (34.0-46.0) % MCV 100.1 H (80.0-100.0) fL Neutrophils # 15.0 H (1.3-7.7) k/uL Lymphocytes # 0.7 L (1.0-4.8) k/uL Sodium 136 L (137-145) mmol/L Potassium 5.2 H (3.5-5.1) mmol/L BUN 28 H (7-17) mg/dL Glucose 113 H (74-99) mg/dL Assessment and Plan Plan: #1 status post right colectomy secondary to polypoid lesion #2 COPD with acute exacerbation #3 hypertension #4 rheumatoid arthritis. Patient is currently not taking any immunosuppressive agents. #5 history of varicose veins #6 history of rectal bleeding #7 hyperkalemia Plan: Continue on current medication regime, nebulized bronchodilators, steroids , monitoring and symptomatic treatment. . Aggressive pulmonary toileting with incentive spirometer reinforced. Discharge planning in progress as per surgery. Further recommendations to follow The impression and plan of care has been dictated as directed. : I performed a H&P examination of this patient and discussed the same with the dictator. I agree with the dictator's note. Any additional findings/opinions/ etc. will be noted.
--- NOTE | 2017-07-19 16:01 | P.PN ---
<Savanah Mart M - Last Filed: 07/19/17 15:47> Subjective Principal diagnosis: COPD, shortness of breath ,status post right colectomy A 62-year-old female patient with advanced and severe COPD along with various other comorbidities including rheumatoid arthritis, peripheral vascular disease and hypertension. History of DVT. The patient has a large right colonic polyp lesion/precancerous and for that reason the patient underwent a hemicolectomy. This was a right hemicolectomy. I'm seeing this patient postop day #4. The patient is doing well. Patient has been ambulating with physical therapy today and states she has been wheezy with activity. Minimal cough and congestion. She is using the incentive spirometer. She is on her bronchodilators. The chest x-ray from 07/17/2017 has been reviewed and showed no acute pulmonary process. Lung sounds are diminished, with no rails,rhonchi or wheezes. No nausea no vomiting. No abdominal pain. There has been a moderate amount of bloody drainage distal from the suture line of the abdomen after the ambulation. Abdomen is nondistended. No change in mental status. No other significant events over the past 24 hours. On 07/18/2017 the patient is seen in follow-up. She states she still has significant shortness of breath and wheezing with ambulation, and she is not able to effectively cough do to the abdominal incision and the pain associated with it. She is using incentive spirometer, her best IS effort is anywhere from 750 2000. She continues on her bronchodilators, IV Solu-Medrol, Pulmicort and Perforomist nebulized treatments. She has been afebrile and hemodynamically stable. On examination her lungs sounds remain diminished throughout the lung guzman with a few faint end expiratory wheezes anteriorly. No signs of acute respiratory distress at this time. Patient remains on Dilaudid COMMERCIAL LINES ACCOUNT ASSISTANT with oral hydrocodone for pain control which she states controls her pain with the exception for the coughing episodes. She is tolerating oral intake, abdomen is nondistended. Anticipate discharge home in the next 24 hours. On 07/19/2017 patient states some improvement in her respiratory status. She has been up ambulating in the [place] independently without oxygen several times a day without significant respiratory distress. Her pulse oximetry does go down to 86% after ambulation for which home oxygen will be ordered. We'll continue IV Solu-Medrol today and will switch to oral prednisone 20 mg daily starting tomorrow. Her IS effort is between [id number] and she continues to improve on that. Good pain control with Dilaudid COMMERCIAL LINES ACCOUNT ASSISTANT and oral hydrocodone. On examination she is awake alert, sitting up on edge of bed, in no apparent distress. Lung sounds are diminished with a few faint wheezes or anterior lung guzman. Patient was started on Mucinex yesterday, no chest congestion no fevers through the night. Oral diet as tolerated well, abdomen is nondistended. Possible discharge tomorrow Objective - Vital Signs Vital signs: Vital Signs Temp 98.2 F 07/19/17 15:00 Pulse 64 07/19/17 15:00 Resp 16 07/19/17 15:00 BP 132/68 07/19/17 15:00 Pulse Ox 95 07/19/17 15:00 Intake & Output 07/18/17 07/19/17 07/19/17 18:59 06:59 18:59 Intake Total 700 690 600 Output Total 200 Balance 700 490 600 Weight 68.039 kg 68.039 kg Intake: Intake, IV Titration 500 210 Amount Bupivacaine (Pf) 0.5% 31. 50 3 ml fentaNYL (PF) 1,250 mcg In Sodium Chloride 0. 9% 194 ml @ Per Protocol EPIDURAL .Q0M PRN Rx#: [id number] D5-0.45% NaCl with KCl 500 160 20Meq/l 1,000 ml @ 75 mls /hr IV .[id number] LATESHA Rx#: [id number] Oral 200 480 600 Output: Urine 200 Other: Voiding Method Toilet Toilet # Voids 1 - Exam Gen. appearance No acute distress, oriented 3. HEENT examination is grossly unremarkable. Mucous membranes are moist. No oral lesions. Neck supple. Full range of motion. No adenopathy or thyromegaly. Cardiovascular examination reveals regular rhythm rate. S1-S2 normal. No S3- S4 or murmur. Lungs reveal diminished breath sounds. Few wheezes over anterior lungs, no rhonchi. No crackles. Breath sounds are equal bilaterally. Slight prolongation on forced maneuver. Abdomen soft. No bowel sounds are heard. Tender on palpation over the incision. Abdominal binder in place. Extremities are intact. No cyanosis clubbing or edema. Skin without rash. The surgical wound is dry clean and intact. Neurologic examination is nonfocal. Patient is alert and awake and oriented. Skeletal system no joint deformities or fractures or active arthritis. - Labs CBC & Chem 7: 07/19/17 07:40 07/19/17 07:40 Labs: Abnormal Lab Results - Last 24 Hours (Table) 07/19/17 07/19/17 Range/Units 07:40 07:40 WBC 16.2 H (3.8-10.6) k/uL RBC 3.05 L (3.80-5.40) m/uL Hgb 9.8 L (11.4-16.0) gm/dL Hct 30.6 L (34.0-46.0) % MCV 100.1 H (80.0-100.0) fL Neutrophils # 15.0 H (1.3-7.7) k/uL Lymphocytes # 0.7 L (1.0-4.8) k/uL Sodium 136 L (137-145) mmol/L Potassium 5.2 H (3.5-5.1) mmol/L BUN 28 H (7-17) mg/dL Glucose 113 H (74-99) mg/dL Assessment and Plan Plan: Assessment 1 right hemicolectomy and the patient is postop day #6. 2 advanced oxygen-dependent COPD 3 chronic hypoxic history failure secondary to COPD, will go home on oxygen at 2 l/min 4 chronic dyspnea secondary to COPD 5 hypertension 6 rheumatoid arthritis 7 chronic alcoholism, currently inactive in stable Plan Continue with nebulized Pulmicort, Perforomist and Duoneb name last treatments. Encourage incentive spirometer, early ambulation and pulmonary toileting. Maintain pain control. Pulmonary status is stable. Home oxygen will be ordered , pulse ox is down to 86 after ambulation. Diet as tolerated. Anticipate discharge tomorrow. I performed a history & physical examination of the patient and discussed their management with my nurse practitioner, Savanah Mart. I reviewed the nurse practitioner's note and agree with the documented findings and plan of care. <Jose Elias Goodman - Last Filed: 07/20/17 17:02> Objective - Vital Signs Vital signs: Vital Signs Temp 98.0 F 07/20/17 15:00 Pulse 84 07/20/17 16:40 Resp 16 07/20/17 15:00 BP 153/69 07/20/17 15:00 Pulse Ox 97 07/20/17 16:27 Intake & Output 07/19/17 07/20/17 07/20/17 18:59 06:59 18:59 Intake Total 600 600 Balance 600 600 Weight 68.039 kg Intake: Oral 600 600 Other: # Voids 2 6 - Labs CBC & Chem 7: 07/20/17 11:41 07/19/17 07:40 Labs: Abnormal Lab Results - Last 24 Hours (Table) 07/20/17 Range/Units 11:41 WBC 14.8 H (3.8-10.6) k/uL RBC 2.77 L (3.80-5.40) m/uL Hgb 8.9 L (11.4-16.0) gm/dL Hct 28.3 L (34.0-46.0) % MCV 102.4 H (80.0-100.0) fL Neutrophils # 13.7 H (1.3-7.7) k/uL Lymphocytes # 0.6 L (1.0-4.8) k/uL Assessment and Plan Plan: This is a joint evaluation done with the nurse practitioner. The patient was seen and the evaluation in the decision-making was done made she will he between myself and the nurse practitioner. I fully attests to the above- mentioned information.
[2017-07-19] MEDS: MONTELUKAST 10 MG TAB PO SCH (20:38)
[2017-07-20] MEDS: HYDROmorphone PCA 5 MG/25 ML SYRINGE IV PRN ×3 (01:10→18:41)
[2017-07-20] MEDS: HYDROcodone/APAP 7.5-325MG 1 EACH TAB PO PRN ×2 (02:55→14:41)
[2017-07-20] MEDS: LACTATED RINGERS 1,000 ML IV SCH (04:54)
[2017-07-20] MEDS: METOCLOPRAMIDE 5 MG/ML 2 ML VIAL IVP SCH ×4 (05:42→23:25)
[2017-07-20] MEDS: FORMOTEROL FUMARATE 20 MCG/2 ML NEBU INHALATION SCH ×2 (05:57→20:55)
[2017-07-20] MEDS: BUDESONIDE 0.5 MG/2 ML NEBU INHALATION SCH ×2 (05:57→20:55)
[2017-07-20] MEDS: IPRATROPIUM-ALBUTEROL 3 ML NEB INHALATION PRN ×4 (05:57→20:55)
[2017-07-20] MEDS: methylPREDNISolone SOD SUCCI 40 MG/ML 1 ML VIAL IV SCH (08:00)
[2017-07-20] MEDS: HEPARIN SODIUM,PORCINE 5,000 UNIT/ML 1 ML VIAL SQ SCH ×2 (08:01→16:32)
[2017-07-20] MEDS: ALVIMOPAN 12 MG CAPSULE PO SCH ×2 (08:01→20:22)
[2017-07-20] MEDS: guaiFENesin-DM 600/30MG 1 EACH TAB.ER.12H PO SCH ×2 (08:01→20:22)
[2017-07-20] MEDS: FAMOTIDINE 20 MG TAB PO SCH ×2 (08:01→20:22)
[2017-07-20 12:05] LABS: Basophils % (A) 0 %; CH 32.6; CHCM 32.1; Eosinophils % (A) 0 %; HCT 28.3 % (34.0-46.0); HDW 2.09; HGB 8.9 gm/dL (11.4-16.0); Luc % (Auto) 1; Lymphocytes # (A) 0.6 k/uL (1.0-4.8); Lymphocytes % (A) 4 %; MCH 32.3 pg (25.0-35.0); MCHC 31.6 g/dL (31.0-37.0); MCV 102.4 fL (80.0-100.0); Macrocytosis Slight; Mean Platelet Volume 8.2; Monocytes # (A) 0.4 k/uL (0-1.0); Monocytes % (A) 3 %; Neutrophils # (A) 13.7 k/uL (1.3-7.7); Neutrophils % (A) 93 %; RBC 2.77 m/uL (3.80-5.40); RDW 14.9 % (11.5-15.5); WBC 14.8 k/uL (3.8-10.6); WBC (Perox) 15.73
[2017-07-20] MEDS: MULTIVITAMINS, THERA 1 EACH TAB PO SCH (12:14)
--- NOTE | 2017-07-20 15:26 | P.PN ---
<Chapis Ramirez - Last Filed: 07/20/17 15:18> Subjective 62-year-old female sitting up in bed. Patient currently states breathing feels slightly improved no conversational dyspnea noted. Pulmonary recommendations noted and appreciated. Patient is voicing concerns about being discharged to home lives alone . Patient is concerned about pain issues takes [place] at home. The IV RECOVERY COLLECTOR dilaudid it has been stopped patient is using [place] for pain relief. Patient continues to have a moderate amount of bloody drainage from surgical site. The abdominal wall soft jaki in place moderate amount of ecchymosis noted to the bilateral lower abdominal wall patient states urinating no difficulty no nausea no vomiting tolerating diet no bowel movement documented states passing gas states has been up ambulating in the cardoso status post extensive laparoscopic lysis of adhesions with an open right colectomy with an excision of a suprapubic sebaceous cyst done on July 13. . Hemoglobin on the is 8.9 Objective - Vital Signs Vital signs: Vital Signs Temp 99.1 F 07/20/17 07:00 Pulse 84 07/20/17 10:47 Resp 17 07/20/17 07:00 BP 132/63 07/20/17 07:00 Pulse Ox 90 L 07/20/17 07:45 Intake & Output 07/19/17 07/20/17 07/20/17 18:59 06:59 18:59 Intake Total 600 Balance 600 Weight 68.039 kg Intake: Oral 600 Other: # Voids 2 - Exam Physical exam 62-year-old female being seen pleasant cooperative oriented 3 Lungs diminished at the bases not able to appreciate any wheezing no cough noted states breathing feels improved nasal cannula at 2 L sats are 93% no conversational dyspnea noted on room air sats were 86% heart S1-S2 audible regular Abdomen purple ecchymotic bruising noted soft not distended surgical tenderness appropriate bowel tones present jaki intact suture line well approximated a moderate amount bloody drainage noted on the dressing abdominal binder in place no nausea no vomiting tolerating diet Extremities no edema noted - Labs CBC & Chem 7: 07/20/17 11:41 07/19/17 07:40 Labs: Abnormal Lab Results - Last 24 Hours (Table) 07/20/17 Range/Units 11:41 WBC 14.8 H (3.8-10.6) k/uL RBC 2.77 L (3.80-5.40) m/uL Hgb 8.9 L (11.4-16.0) gm/dL Hct 28.3 L (34.0-46.0) % MCV 102.4 H (80.0-100.0) fL Neutrophils # 13.7 H (1.3-7.7) k/uL Lymphocytes # 0.6 L (1.0-4.8) k/uL Assessment and Plan Plan: Impression Status post right colectomy secondary to a polypoid lesion done on July 13 Rheumatoid arthritis Hypertension essential Acute exacerbation COPD History rectal bleeding Chronic constipation Chronic EtOH dependency vulvar cancer history of Hyperkalemia Leukocytosis suspect steroid induced Plan Continue postop surgical care Pain control Resume home meds as appropriate Increase activity Encourage the use of the incentive spirometer use every 1 hour while awake Him O2 sat up with home care to follow at the time of discharge Repeat labs in the morning hold all potassium supplements DVT and GI prophylaxis The above impression and plan of care have been discussed and directed by signing physician. Chapis Ramirez nurse practitioner acting as scribe for signing physician. <Brenden Burger - Last Filed: 07/20/17 19:16> Objective - Vital Signs Vital signs: Vital Signs Temp 98.0 F 07/20/17 15:00 Pulse 84 07/20/17 16:40 Resp 16 07/20/17 15:00 BP 153/69 07/20/17 15:00 Pulse Ox 97 07/20/17 16:27 Intake & Output 07/20/17 07/20/17 07/21/17 06:59 18:59 06:59 Intake Total 600 Balance 600 Weight 68.039 kg Intake: Oral 600 Other: # Voids 2 6 - Labs CBC & Chem 7: 07/20/17 11:41 07/19/17 07:40 Labs: Abnormal Lab Results - Last 24 Hours (Table) 07/20/17 Range/Units 11:41 WBC 14.8 H (3.8-10.6) k/uL RBC 2.77 L (3.80-5.40) m/uL Hgb 8.9 L (11.4-16.0) gm/dL Hct 28.3 L (34.0-46.0) % MCV 102.4 H (80.0-100.0) fL Neutrophils # 13.7 H (1.3-7.7) k/uL Lymphocytes # 0.6 L (1.0-4.8) k/uL Assessment and Plan (1) Colon polyp Status: Acute Plan: As above. The degree of drainage from the incision actually has increased over the last 24 hours worth seems to have been decreasing prior to that. The patient stated that she felt a popping sensation when she was bending over yesterday. I decided to remove some of the jaki from the upper and lower aspect of her incision. The patient had a hematoma in the inferior aspect of the incision which was anticipated this was evacuated. No active bleeding was seen. The fascia inferiorly was intact. The fluid coming from the superior aspect of the incision however had more of a serosanguineous appearance instead of old blood appearing. Upon palpation of the fascia I noticed that our PDS sutures were loose and I was able to feel enteric contents just deep to the sutures. These findings were discussed with the patient in detail. I recommend surgical repair of this fascial dehiscence. Retention sutures will be placed. Patient's wound will be left otherwise open to be changed with gauze daily. The risks of bleeding, infection, hernia, recurrent dehiscence, evisceration, bowel injury, fistula, and anesthesia-related complications were discussed. She understands and wishes to proceed.
[2017-07-20] MEDS: predniSONE 20 MG TAB PO SCH (16:33)
--- NOTE | 2017-07-20 16:48 | P.PN ---
Subjective Progress note being dictated for Dr. Cook. Patient is a 62-year-old female with a known history of hypertension and COPD and rheumatoid that is currently not taking any immunosuppressants was admitted to the hospital for right colectomy due to recently diagnosed polypoid lesion. Patient was evaluated by Dr. Ring and had endoscopic resection was unsuccessful. Patient today underwent right colectomy along with Extensive laparoscopic lysis of adhesions and excision suprapubic sebaceous cyst. Patient is currently covering of mild short of breath. And also abdominal discomfort. Otherwise denied any chest pain. No nausea or vomiting. Pain is fairly controlled. 07/14/2017 Patients breathing status improved. Patient was seen by pulmonary. Was started on IV steroids. Patient still having abdominal soreness. Has not passed flatus. Otherwise no acute overnight issues. No fever no chills. No chest pain or worsening short of breath. 07/15/2017 Patient denied any chest pain or short of breath. Patient is still complaining of abdominal pain. Patient did not have any bowel movement or pass flatness at. Patient is able to ambulate. Tolerating clear liquids. No other acute overnight issues. 07/16/2017 ambulating, tolerating exertion well. Incentive spirometer up to 1000. No bowel movement, passing flatus. Denies nausea, vomiting. Pain control with EXECUTIVE STAFF ASSISTANT. Afebrile. WBC 14.2, hemoglobin 10.9. 07/17/2017 patient lying flat in bed without difficulty, complaining of " lung congestion". Denies cough. Ambulating in hallway, tolerating exertion well. Tolerating low fiber diet with no nausea vomiting or diarrhea. No bowel movement, tolerating flatus. Potassium 5.5. White count improving. Hemoglobin 10.2. Afebrile. Pain controlled with EXECUTIVE STAFF ASSISTANT. 07/18/2017. Maintaining O2 sats in the 90s on 2 L nasal cannula in a patient who does not wear oxygen at home. Incentive spirometer up to 750 to 1000. Breathing improving on nebulized bronchodilators and steroids. Pain controlled with EXECUTIVE STAFF ASSISTANT. Ambulating in hallway, tolerating exertion well. Afebrile. Soft bowel movement with maroon tinged reported. Hemoglobin 9.6. Tolerating low fiber diet/low potassum. Potassium 5.6. 07/19/2017 ambulating in cardoso. Continues on Dilaudid EXECUTIVE STAFF ASSISTANT, pain controlled. Positive bowel movement. Hemoglobin 9.8. Potassium 5.2. 07/20/2017. Remains on EXECUTIVE STAFF ASSISTANT as per surgery. Pain controlled. Ambulating in hallway multiple times. Good diet intake. Oozy incision site, hemoglobin 8.9. Consuming 75-100% of low fiber/low potassium diet with no nausea vomiting. Positive bowel movement. Objective - Vital Signs Vital signs: Vital Signs Temp 98.0 F 07/20/17 15:00 Pulse 80 07/20/17 16:27 Resp 16 07/20/17 15:00 BP 153/69 07/20/17 15:00 Pulse Ox 97 07/20/17 16:27 Intake & Output 07/19/17 07/20/17 07/20/17 18:59 06:59 18:59 Intake Total 600 Balance 600 Weight 68.039 kg Intake: Oral 600 Other: # Voids 2 - Exam Patient is sitting up in bed, comfortable, no acute distress, awake alert and oriented. HEENT: Normocephalic. Neck is supple. Pupils reactive. Oral cavity is moist. Neck reveals no JVD, carotid bruits, or thyromegaly. CHEST EXAMINATION: Trachea is central. Symmetrical expansion. No wheezing. No crackles. CARDIAC: Normal S1, S2 with no gallops. No murmurs ABDOMEN: Soft. Bowel sounds normal. No organomegaly. Status post surgery abdominal surgery, incision with moderate oozing-serosanguineous drainage. Abdominal binder present. Positive bowel sounds Extremities reveal no edema. No clubbing or cyanosis Neurologically awake, alert, oriented x3 with well-coordinated movements. Skin: no rash or skin lesions Musculoskeletal: no joint swelling or deformity. - Labs CBC & Chem 7: 07/20/17 11:41 07/19/17 07:40 Labs: Abnormal Lab Results - Last 24 Hours (Table) 07/20/17 Range/Units 11:41 WBC 14.8 H (3.8-10.6) k/uL RBC 2.77 L (3.80-5.40) m/uL Hgb 8.9 L (11.4-16.0) gm/dL Hct 28.3 L (34.0-46.0) % MCV 102.4 H (80.0-100.0) fL Neutrophils # 13.7 H (1.3-7.7) k/uL Lymphocytes # 0.6 L (1.0-4.8) k/uL Assessment and Plan Plan: #1 status post right colectomy secondary to polypoid lesion #2 COPD with acute exacerbation #3 hypertension #4 rheumatoid arthritis. Patient is currently not taking any immunosuppressive agents. #5 history of varicose veins #6 history of rectal bleeding #7 hyperkalemia Plan: Continue on current medication regime, nebulized bronchodilators, steroids , monitoring and symptomatic treatment. Close monitoring of electrolytes, hemoglobin with repeat labs ordered for a.m. Pain management as per surgery. Aggressive pulmonary toileting with incentive spirometer reinforced. Discharge planning in progress as per surgery. Further recommendations to follow The impression and plan of care has been dictated as directed. : I performed a H&P examination of this patient and discussed the same with the dictator. I agree with the dictator's note. Any additional findings/opinions/ etc. will be noted.
--- NOTE | 2017-07-20 17:01 | P.PN ---
Subjective A 62-year-old female patient with advanced and severe COPD along with various other comorbidities including rheumatoid arthritis, peripheral vascular disease and hypertension. History of DVT. The patient has a large right colonic polyp lesion/precancerous and for that reason the patient underwent a hemicolectomy. This was a right hemicolectomy. I'm seeing this patient postop day #4. The patient is doing well. Patient has been ambulating with physical therapy today and states she has been wheezy with activity. Minimal cough and congestion. She is using the incentive spirometer. She is on her bronchodilators. The chest x-ray from 07/17/2017 has been reviewed and showed no acute pulmonary process. Lung sounds are diminished, with no rails,rhonchi or wheezes. No nausea no vomiting. No abdominal pain. There has been a moderate amount of bloody drainage distal from the suture line of the abdomen after the ambulation. Abdomen is nondistended. No change in mental status. No other significant events over the past 24 hours. On 07/18/2017 the patient is seen in follow-up. She states she still has significant shortness of breath and wheezing with ambulation, and she is not able to effectively cough do to the abdominal incision and the pain associated with it. She is using incentive spirometer, her best IS effort is anywhere from [id number]. She continues on her bronchodilators, IV Solu-Medrol, Pulmicort and Perforomist nebulized treatments. She has been afebrile and hemodynamically stable. On examination her lungs sounds remain diminished throughout the lung guzman with a few faint end expiratory wheezes anteriorly. No signs of acute respiratory distress at this time. Patient remains on Dilaudid COST ACCOUNTING ANALYST with oral hydrocodone for pain control which she states controls her pain with the exception for the coughing episodes. She is tolerating oral intake, abdomen is nondistended. Anticipate discharge home in the next 24 hours. On 07/19/2017 patient states some improvement in her respiratory status. She has been up ambulating in the cardoso independently without oxygen several times a day without significant respiratory distress. Her pulse oximetry does go down to 86% after ambulation for which home oxygen will be ordered. We'll continue IV Solu-Medrol today and will switch to oral prednisone 20 mg daily starting tomorrow. Her IS effort is between [id number] and she continues to improve on that. Good pain control with Dilaudid COST ACCOUNTING ANALYST and oral hydrocodone. On examination she is awake alert, sitting up on edge of bed, in no apparent distress. Lung sounds are diminished with a few faint wheezes or anterior lung guzman. Patient was started on Mucinex yesterday, no chest congestion no fevers through the night. Oral diet as tolerated well, abdomen is nondistended. Possible discharge tomorrow On 07/18/2017 I'm seeing this patient for a follow-up. The patient is ambulating. The patient is feeling better. She is not having any major stroke difficulties in her COPD stable. We will switch her to prednisone orally today. Her pain is under good control. Abdominal incision site was leaking some serosanguineous material and I will let the surgeon and inspect the abdominal wounds. No nausea. No vomiting. No abdominal distention. No fever or chills. No leukocytosis. No other significant events overnight. Objective - Vital Signs Vital signs: Vital Signs Temp 98.0 F 07/20/17 15:00 Pulse 84 07/20/17 16:40 Resp 16 07/20/17 15:00 BP 153/69 07/20/17 15:00 Pulse Ox 97 07/20/17 16:27 Intake & Output 07/19/17 07/20/17 07/20/17 18:59 06:59 18:59 Intake Total 600 600 Balance 600 600 Weight 68.039 kg Intake: Oral 600 600 Other: # Voids 2 6 - Exam Gen. appearance No acute distress, oriented 3. HEENT examination is grossly unremarkable. Mucous membranes are moist. No oral lesions. Neck supple. Full range of motion. No adenopathy or thyromegaly. Cardiovascular examination reveals regular rhythm rate. S1-S2 normal. No S3- S4 or murmur. Lungs reveal diminished breath sounds. Few wheezes over anterior lungs, no rhonchi. No crackles. Breath sounds are equal bilaterally. Slight prolongation on forced maneuver. Abdomen soft. No bowel sounds are heard. Tender on palpation over the incision. Abdominal binder in place. Extremities are intact. No cyanosis clubbing or edema. Skin without rash. The surgical wound is dry clean and intact. Neurologic examination is nonfocal. Patient is alert and awake and oriented. Skeletal system no joint deformities or fractures or active arthritis. - Labs CBC & Chem 7: 07/20/17 11:41 07/19/17 07:40 Labs: Abnormal Lab Results - Last 24 Hours (Table) 07/20/17 Range/Units 11:41 WBC 14.8 H (3.8-10.6) k/uL RBC 2.77 L (3.80-5.40) m/uL Hgb 8.9 L (11.4-16.0) gm/dL Hct 28.3 L (34.0-46.0) % MCV 102.4 H (80.0-100.0) fL Neutrophils # 13.7 H (1.3-7.7) k/uL Lymphocytes # 0.6 L (1.0-4.8) k/uL Assessment and Plan Plan: Assessment 1 right hemicolectomy and the patient is postop day #7 some limited serosynovitis drainage from the abdominal wound that needs to be further inspected by general surgery. 2 advanced oxygen-dependent COPD, patient has been doing well, using incentive spirometer. Ambulating. Will be taken off the IV Solu-Medrol and placed on a prednisone burst taper starting with 20 mg dose. 3 chronic hypoxic history failure secondary to COPD, will go home on oxygen at 2 l/min 4 chronic dyspnea secondary to COPD 5 hypertension 6 rheumatoid arthritis 7 chronic alcoholism, currently inactive in stable 8 postoperative anemia, hemoglobin 8.9, almost a grams drop compared to yesterday and it is to be further monitored and followed up Plan May discontinue the COST ACCOUNTING ANALYST. Inspect abdominal wounds. Continue bronchodilators. This continued IV Solu Medrol start the patient prednisone burst taper starting with 20 mg and tapered by 10 mg every 5 days. Ambulate. We'll follow.
[2017-07-20] MEDS: HYDROmorphone 1 MG/ML 1 ML SYRINGE IVP PRN (17:27)
[2017-07-20] MEDS ORDERED: NALOXONE 0.4 MG/ML 1 ML VIAL IV PRN (18:15)
[2017-07-20] MEDS: HYDROcodone/APAP 10-325MG 1 EACH TAB PO PRN (19:57)
[2017-07-20] MEDS: MONTELUKAST 10 MG TAB PO SCH (20:22)
[2017-07-21] MEDS: HYDROcodone/APAP 10-325MG 1 EACH TAB PO PRN (01:01)
[2017-07-21] MEDS: LACTATED RINGERS 1,000 ML IV SCH ×2 (01:31→20:59)
[2017-07-21] MEDS: HEPARIN SODIUM,PORCINE 5,000 UNIT/ML 1 ML VIAL SQ SCH ×3 (01:31→19:29)
[2017-07-21] MEDS: IPRATROPIUM-ALBUTEROL 3 ML NEB INHALATION PRN ×4 (02:03→19:57)
[2017-07-21] MEDS: HYDROmorphone PCA 5 MG/25 ML SYRINGE IV PRN ×3 (04:40→20:51)
[2017-07-21] MEDS: METOCLOPRAMIDE 5 MG/ML 2 ML VIAL IVP SCH ×3 (05:44→19:29)
[2017-07-21 07:41] LABS: Basophils % (A) 0 %; Eosinophils # (A) 0.1 k/uL (0-0.7); Eosinophils % (A) 0 %; HCT 28.1 % (34.0-46.0); HDW 2.09; HGB 8.6 gm/dL (11.4-16.0); Luc # (Auto) 0.15; Luc % (Auto) 1; Lymphocytes % (A) 14 %; MCHC 30.7 g/dL (31.0-37.0); MCV 104.1 fL (80.0-100.0); Macrocytosis Slight; Mean Platelet Volume 8.2; Monocytes % (A) 7 %; Neutrophils # (A) 10.8 k/uL (1.3-7.7); Neutrophils % (A) 77 %; WBC (Perox) 14.36
[2017-07-21 07:57] LABS: ALT 41 U/L (9-52); AST 17 U/L (14-36); Alkaline Phosphatase 51 U/L (38-126); Anion Gap 1 mmol/L; Blood Urea Nitrogen 22 mg/dL (7-17); Calcium 8.1 mg/dL (8.4-10.2); Carbon Dioxide 34 mmol/L (22-30); Chloride 98 mmol/L (98-107); Glucose 75 mg/dL (74-99); Non-African American GFR(MDRD) >60 (>60 ml/min/1.73 sqM); Potassium 4.9 mmol/L (3.5-5.1); Sodium 133 mmol/L (137-145); Total Bilirubin 0.5 mg/dL (0.2-1.3); Total Protein 5.3 g/dL (6.3-8.2)
[2017-07-21] MEDS: BUDESONIDE 0.5 MG/2 ML NEBU INHALATION SCH ×2 (08:40→19:57)
[2017-07-21] MEDS: FORMOTEROL FUMARATE 20 MCG/2 ML NEBU INHALATION SCH ×2 (08:40→19:57)
[2017-07-21] MEDS ORDERED: LISINOPRIL 20 MG TAB PO STA (12:00)
[2017-07-21] MEDS ORDERED: FUROSEMIDE 40 MG TAB PO ONE (12:00)
[2017-07-21] MEDS: predniSONE 20 MG TAB PO SCH (13:32)
[2017-07-21] MEDS: amLODIPine 5 MG TAB PO SCH (13:32)
[2017-07-21] MEDS: guaiFENesin-DM 600/30MG 1 EACH TAB.ER.12H PO SCH ×2 (13:33→20:56)
[2017-07-21] MEDS: FAMOTIDINE 20 MG TAB PO SCH ×2 (13:33→20:56)
[2017-07-21] MEDS: MULTIVITAMINS, THERA 1 EACH TAB PO SCH (13:35)
--- NOTE | 2017-07-21 14:39 | P.PN ---
Subjective A 62-year-old female patient with advanced and severe COPD along with various other comorbidities including rheumatoid arthritis, peripheral vascular disease and hypertension. History of DVT. The patient has a large right colonic polyp lesion/precancerous and for that reason the patient underwent a hemicolectomy. This was a right hemicolectomy. I'm seeing this patient postop day #4. The patient is doing well. Patient has been ambulating with physical therapy today and states she has been wheezy with activity. Minimal cough and congestion. She is using the incentive spirometer. She is on her bronchodilators. The chest x-ray from 07/17/2017 has been reviewed and showed no acute pulmonary process. Lung sounds are diminished, with no rails,rhonchi or wheezes. No nausea no vomiting. No abdominal pain. There has been a moderate amount of bloody drainage distal from the suture line of the abdomen after the ambulation. Abdomen is nondistended. No change in mental status. No other significant events over the past 24 hours. On 07/18/2017 the patient is seen in follow-up. She states she still has significant shortness of breath and wheezing with ambulation, and she is not able to effectively cough do to the abdominal incision and the pain associated with it. She is using incentive spirometer, her best IS effort is anywhere from [id number]. She continues on her bronchodilators, IV Solu-Medrol, Pulmicort and Perforomist nebulized treatments. She has been afebrile and hemodynamically stable. On examination her lungs sounds remain diminished throughout the lung guzman with a few faint end expiratory wheezes anteriorly. No signs of acute respiratory distress at this time. Patient remains on Dilaudid VEGETABLE PACKER with oral hydrocodone for pain control which she states controls her pain with the exception for the coughing episodes. She is tolerating oral intake, abdomen is nondistended. Anticipate discharge home in the next 24 hours. On 07/19/2017 patient states some improvement in her respiratory status. She has been up ambulating in the cardoso independently without oxygen several times a day without significant respiratory distress. Her pulse oximetry does go down to 86% after ambulation for which home oxygen will be ordered. We'll continue IV Solu-Medrol today and will switch to oral prednisone 20 mg daily starting tomorrow. Her IS effort is between [id number] and she continues to improve on that. Good pain control with Dilaudid VEGETABLE PACKER and oral hydrocodone. On examination she is awake alert, sitting up on edge of bed, in no apparent distress. Lung sounds are diminished with a few faint wheezes or anterior lung guzman. Patient was started on Mucinex yesterday, no chest congestion no fevers through the night. Oral diet as tolerated well, abdomen is nondistended. Possible discharge tomorrow On 07/20/2017 I'm seeing this patient for a follow-up. The patient is ambulating. The patient is feeling better. She is not having any major stroke difficulties in her COPD stable. We will switch her to prednisone orally today. Her pain is under good control. Abdominal incision site was leaking some serosanguineous material and I will let the surgeon and inspect the abdominal wounds. No nausea. No vomiting. No abdominal distention. No fever or chills. No leukocytosis. No other significant events overnight. On 07/21/2017, the patient's pulmonary status is stable. The patient however will be taken to the operating room for fascial dehiscence of the surgical wound. For that reason, the patient is nothing by mouth. Currently ambulating. No nausea. No vomiting. No abdominal pain. No significant shortness of breath. Objective - Vital Signs Vital signs: Vital Signs Temp 97.5 F L 07/21/17 07:00 Pulse 84 07/21/17 13:25 Resp 15 07/21/17 08:00 BP 162/77 07/21/17 07:00 Pulse Ox 86 L 07/21/17 07:00 Intake & Output 07/20/17 07/21/17 07/21/17 18:59 06:59 18:59 Intake Total 600 200 Output Total 200 Balance 600 0 Weight 68.039 kg Intake: Oral 600 200 Output: Urine 200 Other: Voiding Method Toilet # Voids 6 3 - Exam Gen. appearance No acute distress, oriented 3. HEENT examination is grossly unremarkable. Mucous membranes are moist. No oral lesions. Neck supple. Full range of motion. No adenopathy or thyromegaly. Cardiovascular examination reveals regular rhythm rate. S1-S2 normal. No S3- S4 or murmur. Lungs reveal diminished breath sounds. Few wheezes over anterior lungs, no rhonchi. No crackles. Breath sounds are equal bilaterally. Slight prolongation on forced maneuver. Abdomen soft. Abdomen purple ecchymotic bruising noted soft not distended surgical tenderness appropriate bowel tones present jaki intact suture line well approximated a moderate amount bloody drainage noted on the dressing abdominal binder in plac Extremities are intact. No cyanosis clubbing or edema. Skin without rash. The surgical wound is dry clean and intact. Neurologic examination is nonfocal. Patient is alert and awake and oriented. Skeletal system no joint deformities or fractures or active arthritis. - Labs CBC & Chem 7: 07/21/17 07:15 07/21/17 07:15 Labs: Abnormal Lab Results - Last 24 Hours (Table) 07/21/17 07/21/17 Range/Units 07:15 07:15 WBC 14.0 H (3.8-10.6) k/uL RBC 2.70 L (3.80-5.40) m/uL Hgb 8.6 L (11.4-16.0) gm/dL Hct 28.1 L (34.0-46.0) % MCV 104.1 H (80.0-100.0) fL MCHC 30.7 L (31.0-37.0) g/dL Neutrophils # 10.8 H (1.3-7.7) k/uL Sodium 133 L (137-145) mmol/L Carbon Dioxide 34 H (22-30) mmol/L BUN 22 H (7-17) mg/dL Calcium 8.1 L (8.4-10.2) mg/dL Total Protein 5.3 L (6.3-8.2) g/dL Albumin 2.7 L (3.5-5.0) g/dL Assessment and Plan Plan: Assessment 1 right hemicolectomy and the patient is postop day #8 with secondary fascial dehiscence and the patient will be taken to the operating room today for surgical closure. This is likely probably due to high dose of steroids that the patient has received preoperatively. 2 advanced oxygen-dependent COPD, patient has been doing well, using incentive spirometer. Ambulating. Will be taken off the IV Solu-Medrol and placed on a prednisone burst taper starting with 20 mg dose. 3 chronic hypoxic history failure secondary to COPD, will go home on oxygen at 2 l/min 4 chronic dyspnea secondary to COPD 5 hypertension 6 rheumatoid arthritis 7 chronic alcoholism, currently inactive in stable 8 postoperative anemia, hemoglobin 8.6, almost a grams drop compared to yesterday and it is to be further monitored and followed up PLAN The patient will be taken to the operating room for surgical repair of a fascial dehiscence. We'll continue to follow.
[2017-07-21] MEDS ORDERED: LACTATED RINGERS 1,000 ML IV ONE ×3 (16:10→16:55)
[2017-07-21] MEDS ORDERED: fentaNYL (PF) 50 MCG/ML 2 ML AMP ONE (16:54)
[2017-07-21] MEDS ORDERED: HEPARIN SODIUM,PORCINE 5,000 UNIT/ML 1 ML VIAL ONE (16:54)
[2017-07-21] MEDS ORDERED: PHENYLEPHRINE-0.9% NACL SYG 1 MG/10 ML SYRINGE ONE (16:54)
[2017-07-21] MEDS ORDERED: ePHEDrine SULFATE/0.9% NACL/PF 50 MG/5 ML SYRINGE IV ONE (16:54)
[2017-07-21] MEDS ORDERED: LIDOCAINE 1% INJ 10MG/ML (20 ML MDV) ONE (16:54)
[2017-07-21] MEDS ORDERED: SUCCINYLCHOLINE CHLORIDE 100 MG/5 ML SYR IV ONE (16:54)
[2017-07-21] MEDS ORDERED: ONDANSETRON 4 MG/2 ML VIAL ONE (16:54)
[2017-07-21] MEDS ORDERED: DEXAMETHASONE SOD PHOS (MDV) 100 MG/10 ML VIAL ONE (16:54)
[2017-07-21] MEDS ORDERED: NEOSTIGMINE 1 MG/ML 10 ML VIAL ONE (16:54)
[2017-07-21] MEDS ORDERED: GLYCOPYRROLATE 0.2 MG/ML 2 ML VIAL ONE (16:54)
[2017-07-21] MEDS ORDERED: MIDAZOLAM 2 MG/2 ML VIAL ONE (16:54)
[2017-07-21] MEDS ORDERED: VECURONIUM 10 MG VIAL IV ONE (16:54)
[2017-07-21] MEDS ORDERED: PROPOFOL 10 MG/ML 20 ML VIAL IV ONE (16:54)
[2017-07-21] MEDS ORDERED: SODIUM CHLORIDE 0.9% 100 ML with ceFAZolin 2,000 MG IV ONE ×2 (17:05)
--- NOTE | 2017-07-21 18:07 | P.OP ---
Date of Procedure: 07/21/17 Procedure(s) Performed: PREOPERATIVE DIAGNOSIS: Fascial dehiscence POSTOPERATIVE DIAGNOSIS: Same PROCEDURE: Repair Fascial Dehiscence SURGEON: Jennyfer EBL: min ANESTHESIA: general COMPLICATIONS: None OPERATIVE PROCEDURE: Patient was placed in the operative table in the supine position by the patient was placed under general anesthesia. The previous jaki were removed. The packing was removed. Sterile dressing was fluid was identified on the packing material. The abdomen was prepped and draped in usual sterile fashion at that point. The remainder of the incision was opened bluntly. The subcutaneous Vicryl sutures were removed. The fascia was inspected. The lower half to two thirds of the fascial closure was still relatively taught however the top one third was quite loose. I decided to remove the entire PDS running stitch. The fascia was bluntly inspected circumferentially. Minimal adhesions between the omentum and the fascia were bluntly dissected. The bowel was visualized and appeared normal. There was a small serosanguineous within the abdominal cavity was irrigated. There was no evidence of any intraperitoneal leak or infection seen. I placed 2 horizontally fashioned #5 Ethibond suture retention sutures. I then closed the fascia using 3 separate short running double-stranded #1 PDS sutures. The 2 retention sutures were then tied down over 20-Namibian red rubber catheters. The wound was then packed with Gabo gauze. Sterile outer dressing and binder was applied. DISPOSITION: Stable to recovery room
[2017-07-21] MEDS: HYDROmorphone 1 MG/ML 1 ML SYRINGE IVP ONE ×4 (18:23→19:00)
[2017-07-21 20:06] LABS: Partial Thromboplastin Time 24.1 sec (22.0-30.0); Prothrombin Time 10.1 sec (9.0-12.0)
[2017-07-21] MEDS: MONTELUKAST 10 MG TAB PO SCH (20:56)
[2017-07-22] MEDS: KETOROLAC 30 MG/ML 1 ML VIAL IVP SCH ×4 (00:09→17:38)
[2017-07-22] MEDS: METOCLOPRAMIDE 5 MG/ML 2 ML VIAL IVP SCH ×4 (00:10→17:39)
[2017-07-22] MEDS: HEPARIN SODIUM,PORCINE 5,000 UNIT/ML 1 ML VIAL SQ SCH ×3 (00:10→15:28)
[2017-07-22] MEDS: LACTATED RINGERS 1,000 ML IV SCH ×2 (01:56→15:33)
[2017-07-22] MEDS: HYDROmorphone PCA 5 MG/25 ML SYRINGE IV PRN ×2 (07:50→15:23)
[2017-07-22] MEDS: guaiFENesin-DM 600/30MG 1 EACH TAB.ER.12H PO SCH ×2 (07:57→20:45)
[2017-07-22] MEDS: LISINOPRIL 20 MG TAB PO SCH (07:58)
[2017-07-22] MEDS: FUROSEMIDE 40 MG TAB PO SCH (07:58)
[2017-07-22] MEDS: amLODIPine 5 MG TAB PO SCH (07:58)
[2017-07-22] MEDS: predniSONE 20 MG TAB PO SCH (07:58)
[2017-07-22] MEDS: FAMOTIDINE 20 MG TAB PO SCH ×2 (07:58→20:45)
[2017-07-22] MEDS: BUDESONIDE 0.5 MG/2 ML NEBU INHALATION SCH ×2 (08:10→20:12)
[2017-07-22] MEDS: IPRATROPIUM-ALBUTEROL 3 ML NEB INHALATION PRN ×3 (08:10→20:12)
[2017-07-22] MEDS: FORMOTEROL FUMARATE 20 MCG/2 ML NEBU INHALATION SCH ×2 (08:10→20:12)
--- NOTE | 2017-07-22 08:54 | P.PN ---
Subjective Principal diagnosis: Right-sided colon polyp Patient doing better today. Pain is improving. Mild soreness. She is afebrile. No nausea or vomiting. Objective - Vital Signs Vital signs: Vital Signs Temp 98 F 07/22/17 02:58 Pulse 88 07/22/17 08:28 Resp 16 07/22/17 02:58 BP 128/66 07/22/17 02:58 Pulse Ox 97 07/22/17 02:58 Intake & Output 07/21/17 07/22/17 07/22/17 18:59 06:59 18:59 Intake Total 1020 500 Output Total 850 1900 Balance 170 -1400 Intake: IV 950 Intake, IV Titration 50 500 Amount Bupivacaine (Pf) 0.5% 31. 50 3 ml fentaNYL (PF) 1,250 mcg In Sodium Chloride 0. 9% 194 ml @ Per Protocol EPIDURAL .Q0M PRN Rx#: [id number] Lactated Ringers 1,000 ml 500 @ 50 mls/hr IV .Q20H [facility] Rx#:[id number] Oral 20 Output: Urine 750 1900 Estimated Blood Loss 100 Other: Voiding Method Toilet # Voids 5 - Exam Abdomen: Soft, nondistended, mild tenderness, dressing intact - Labs CBC & Chem 7: 07/21/17 07:15 07/21/17 07:15 Assessment and Plan (1) Colon polyp Narrative/Plan: Will keep [place] until tomorrow. Ambulate. We'll rediscuss the patient's case with discharge planning to see if short-term rehab as an option now that she has undergone a second operative intervention. Status: Acute
[2017-07-22] MEDS: MULTIVITAMINS, THERA 1 EACH TAB PO SCH (12:45)
--- NOTE | 2017-07-22 13:33 | P.PN ---
Subjective A 62-year-old female patient with advanced and severe COPD along with various other comorbidities including rheumatoid arthritis, peripheral vascular disease and hypertension. History of DVT. The patient has a large right colonic polyp lesion/precancerous and for that reason the patient underwent a hemicolectomy. This was a right hemicolectomy. I'm seeing this patient postop day #4. The patient is doing well. Patient has been ambulating with physical therapy today and states she has been wheezy with activity. Minimal cough and congestion. She is using the incentive spirometer. She is on her bronchodilators. The chest x-ray from 07/17/2017 has been reviewed and showed no acute pulmonary process. Lung sounds are diminished, with no rails,rhonchi or wheezes. No nausea no vomiting. No abdominal pain. There has been a moderate amount of bloody drainage distal from the suture line of the abdomen after the ambulation. Abdomen is nondistended. No change in mental status. No other significant events over the past 24 hours. On 07/18/2017 the patient is seen in follow-up. She states she still has significant shortness of breath and wheezing with ambulation, and she is not able to effectively cough do to the abdominal incision and the pain associated with it. She is using incentive spirometer, her best IS effort is anywhere from 750 2000. She continues on her bronchodilators, IV Solu-Medrol, Pulmicort and Perforomist nebulized treatments. She has been afebrile and hemodynamically stable. On examination her lungs sounds remain diminished throughout the lung guzman with a few faint end expiratory wheezes anteriorly. No signs of acute respiratory distress at this time. Patient remains on Dilaudid CLAY PUDDLER with oral hydrocodone for pain control which she states controls her pain with the exception for the coughing episodes. She is tolerating oral intake, abdomen is nondistended. Anticipate discharge home in the next 24 hours. On 07/19/2017 patient states some improvement in her respiratory status. She has been up ambulating in the cardoso independently without oxygen several times a day without significant respiratory distress. Her pulse oximetry does go down to 86% after ambulation for which home oxygen will be ordered. We'll continue IV Solu-Medrol today and will switch to oral prednisone 20 mg daily starting tomorrow. Her IS effort is between [id number] and she continues to improve on that. Good pain control with Dilaudid CLAY PUDDLER and oral hydrocodone. On examination she is awake alert, sitting up on edge of bed, in no apparent distress. Lung sounds are diminished with a few faint wheezes or anterior lung guzman. Patient was started on Mucinex yesterday, no chest congestion no fevers through the night. Oral diet as tolerated well, abdomen is nondistended. Possible discharge tomorrow On 07/20/2017 I'm seeing this patient for a follow-up. The patient is ambulating. The patient is feeling better. She is not having any major stroke difficulties in her COPD stable. We will switch her to prednisone orally today. Her pain is under good control. Abdominal incision site was leaking some serosanguineous material and I will let the surgeon and inspect the abdominal wounds. No nausea. No vomiting. No abdominal distention. No fever or chills. No leukocytosis. No other significant events overnight. On 07/21/2017, the patient's pulmonary status is stable. The patient however will be taken to the operating room for fascial dehiscence of the surgical wound. For that reason, the patient is nothing by mouth. Currently ambulating. No nausea. No vomiting. No abdominal pain. No significant shortness of breath. On 07/22/2017 the patient is resting comfortably in bed. As mentioned the patient has developed a facial dehiscence at the level of the abdominal wound and the patient underwent a surgical repair and closure yesterday. She is doing well. She is comfortable in bed. She is breathing well. She is tolerating diet. She'll be going tomorrow with an a.m. Objective - Vital Signs Vital signs: Vital Signs Temp 97.6 F 07/22/17 07:00 Pulse 88 07/22/17 12:11 Resp 14 07/22/17 08:00 BP 125/61 07/22/17 07:00 Pulse Ox 96 07/22/17 07:00 Intake & Output 07/21/17 07/22/17 07/22/17 18:59 06:59 18:59 Intake Total 1020 500 Output Total 850 1900 Balance 170 -1400 Intake: IV 950 Intake, IV Titration 50 500 Amount Bupivacaine (Pf) 0.5% 31. 50 3 ml fentaNYL (PF) 1,250 mcg In Sodium Chloride 0. 9% 194 ml @ Per Protocol EPIDURAL .Q0M PRN Rx#: [id number] Lactated Ringers 1,000 ml 500 @ 50 mls/hr IV .Q20H [facility] Rx#:[id number] Oral 20 Output: Urine 750 1900 Estimated Blood Loss 100 Other: Voiding Method Toilet Indwelling Catheter # Voids 5 - Exam Gen. appearance No acute distress, oriented 3. HEENT examination is grossly unremarkable. Mucous membranes are moist. No oral lesions. Neck supple. Full range of motion. No adenopathy or thyromegaly. Cardiovascular examination reveals regular rhythm rate. S1-S2 normal. No S3- S4 or murmur. Lungs reveal diminished breath sounds. Few wheezes over anterior lungs, no rhonchi. No crackles. Breath sounds are equal bilaterally. Slight prolongation on forced maneuver. Abdomen soft. Abdomen purple ecchymotic bruising noted soft not distended surgical tenderness appropriate bowel tones present jaki intact suture line well approximated a moderate amount bloody drainage noted on the dressing abdominal binder in plac Extremities are intact. No cyanosis clubbing or edema. Skin without rash. The surgical wound is dry clean and intact. Neurologic examination is nonfocal. Patient is alert and awake and oriented. Skeletal system no joint deformities or fractures or active arthritis. - Labs CBC & Chem 7: 07/21/17 07:15 07/21/17 07:15 Assessment and Plan Plan: Assessment 1 right hemicolectomy and the patient is postop day #9 with secondary fascial dehiscence that was surgically repaired yesterday. 2 advanced oxygen-dependent COPD, patient has been doing well, using incentive spirometer. Ambulating. Will be taken off the IV Solu-Medrol and placed on a prednisone burst taper starting with 20 mg dose. 3 chronic hypoxic history failure secondary to COPD, will go home on oxygen at 2 l/min 4 chronic dyspnea secondary to COPD 5 hypertension 6 rheumatoid arthritis 7 chronic alcoholism, currently inactive in stable 8 postoperative anemia, hemoglobin 8.6, almost a grams drop compared to yesterday and it is to be further monitored and followed up PLAN Clinically stable. Pulmonary status is stable. Advance diet. Will be considered for discharge tomorrow to [facility] if she continues to be stable.
[2017-07-22] MEDS: MONTELUKAST 10 MG TAB PO SCH (20:45)
--- NOTE | 2017-07-22 23:50 | P.PN ---
Subjective Principal diagnosis: Status post right colectomy COPD exacerbation Patient is a 62-year-old female with a known history of hypertension and COPD and rheumatoid that is currently not taking any immunosuppressants was admitted to the hospital for right colectomy due to recently diagnosed polypoid lesion. Patient was evaluated by Dr. Ring and had endoscopic resection was unsuccessful. Patient today underwent right colectomy along with Extensive laparoscopic lysis of adhesions and excision suprapubic sebaceous cyst. Patient is currently covering of mild short of breath. And also abdominal discomfort. Otherwise denied any chest pain. No nausea or vomiting. Pain is fairly controlled. 07/21/2017 Patient currently denied any chest pain are worse and short of breath. Patient is tolerating diet. Patient is being taken to or for Repair Fascial Dehiscence. Continue the pain management. Otherwise no acute overnight issues. Objective - Vital Signs Vital signs: Vital Signs Temp 98 F 07/21/17 18:07 Pulse 86 07/21/17 20:33 Resp 16 07/21/17 18:53 BP 131/55 07/21/17 18:53 Pulse Ox 90 L 07/21/17 18:53 Intake & Output 07/21/17 07/21/17 07/22/17 06:59 18:59 06:59 Intake Total 200 1020 Output Total 200 850 Balance 0 170 Intake: IV 950 Intake, IV Titration 50 Amount Bupivacaine (Pf) 0.5% 31. 50 3 ml fentaNYL (PF) 1,250 mcg In Sodium Chloride 0. 9% 194 ml @ Per Protocol EPIDURAL .Q0M PRN Rx#: [id number] Oral 200 20 Output: Urine 200 750 Estimated Blood Loss 100 Other: Voiding Method Toilet # Voids 3 5 - Exam Patient is lying in the bed comfortably, no acute distress, awake alert and oriented.. HEENT: Normocephalic. Neck is supple. Pupils reactive. Nostrils clear. Oral cavity is moist. Ears reveal no drainage. Neck reveals no JVD, carotid bruits, or thyromegaly. CHEST EXAMINATION: Trachea is central. Symmetrical expansion. No wheezing. No crackles. CARDIAC: Normal S1, S2 with no gallops. No murmurs ABDOMEN: Soft. Bowel sounds normal. No organomegaly. No abdominal bruits. Mid abdominal incision for laparoscopic surgery. Minimal tenderness to palpation no guarding no rigidity. Extremities reveal no edema. No clubbing or cyanosis Neurologically awake, alert, oriented x3 with well-coordinated movements. Skin: no rash or skin lesions Musculoskeletal: no joint swelling or deformity. - Labs CBC & Chem 7: 07/21/17 07:15 07/21/17 07:15 Labs: Abnormal Lab Results - Last 24 Hours (Table) 07/21/17 07/21/17 Range/Units 07:15 07:15 WBC 14.0 H (3.8-10.6) k/uL RBC 2.70 L (3.80-5.40) m/uL Hgb 8.6 L (11.4-16.0) gm/dL Hct 28.1 L (34.0-46.0) % MCV 104.1 H (80.0-100.0) fL MCHC 30.7 L (31.0-37.0) g/dL Neutrophils # 10.8 H (1.3-7.7) k/uL Sodium 133 L (137-145) mmol/L Carbon Dioxide 34 H (22-30) mmol/L BUN 22 H (7-17) mg/dL Calcium 8.1 L (8.4-10.2) mg/dL Total Protein 5.3 L (6.3-8.2) g/dL Albumin 2.7 L (3.5-5.0) g/dL Assessment and Plan Plan: #1 status post right colectomy secondary to polypoid lesion #2 surgical wound dehiscence. OR for repair today #2 COPD with acute exacerbation #3 hypertension #4 rheumatoid arthritis. Patient is currently not taking any immunosuppressive agents. #5 history of varicose veins #6 history of rectal bleeding #7 DVT prophylaxis Plan: Patient will be continued on breathing treatments with duo nebs and Pulmicort as well as Perforomist. Continue with prednisone 20 mg daily.. Breathing status much improved now. We will continue the pain management and bowel regimen. encourage Ambulation and incentive spirometry. Continue with Lasix. Continue with DVT prophylaxis. We will continue to follow closely and further recommendations based on the clinical course.
--- NOTE | 2017-07-22 23:51 | P.PN ---
Subjective Principal diagnosis: Status post right colectomy COPD exacerbation Patient is a 62-year-old female with a known history of hypertension and COPD and rheumatoid that is currently not taking any immunosuppressants was admitted to the hospital for right colectomy due to recently diagnosed polypoid lesion. Patient was evaluated by Dr. Ring and had endoscopic resection was unsuccessful. Patient today underwent right colectomy along with Extensive laparoscopic lysis of adhesions and excision suprapubic sebaceous cyst. Patient is currently covering of mild short of breath. And also abdominal discomfort. Otherwise denied any chest pain. No nausea or vomiting. Pain is fairly controlled. 07/21/2017 Patient currently denied any chest pain are worse and short of breath. Patient is tolerating diet. Patient is being taken to or for Repair Fascial Dehiscence. Continue the pain management. Otherwise no acute overnight issues. 07/22/2017 Patient denied any chest pain or worsening short of breath. Patient is on EYELET MACHINE OPERATOR pump for pain control. No complaints of abdominal pain. Patient is tolerating by mouth diet. No fever no chills. No acute overnight issues. All other review of systems negative except as above Current medications reviewed. Objective - Vital Signs Vital signs: Vital Signs Temp 98.6 F 07/22/17 20:34 Pulse 70 07/22/17 20:34 Resp 16 07/22/17 20:34 BP 94/46 07/22/17 20:34 Pulse Ox 96 07/22/17 20:34 Intake & Output 07/22/17 07/22/17 07/23/17 06:59 18:59 06:59 Intake Total 500 Output Total 1900 1800 Balance -1400 -1800 Intake: Intake, IV Titration 500 Amount Lactated Ringers 1,000 ml 500 @ 50 mls/hr IV .Q20H [facility] Rx#:[id number] Output: Urine 1900 1800 Other: Voiding Method Indwelling Catheter - Exam Patient is lying in the bed comfortably, no acute distress, awake alert and oriented.. HEENT: Normocephalic. Neck is supple. Pupils reactive. Nostrils clear. Oral cavity is moist. Ears reveal no drainage. Neck reveals no JVD, carotid bruits, or thyromegaly. CHEST EXAMINATION: Trachea is central. Symmetrical expansion. No wheezing. No crackles. CARDIAC: Normal S1, S2 with no gallops. No murmurs ABDOMEN: Soft. Bowel sounds normal. No organomegaly. No abdominal bruits. Mid abdominal incision for laparoscopic surgery. Minimal tenderness to palpation no guarding no rigidity. Extremities reveal no edema. No clubbing or cyanosis Neurologically awake, alert, oriented x3 with well-coordinated movements. Skin: no rash or skin lesions Musculoskeletal: no joint swelling or deformity. - Labs CBC & Chem 7: 07/21/17 07:15 07/21/17 07:15 Assessment and Plan Plan: #1 status post right colectomy secondary to polypoid lesion #2 surgical wound dehiscence. OR for repair today #2 COPD with acute exacerbation #3 hypertension #4 rheumatoid arthritis. Patient is currently not taking any immunosuppressive agents. #5 history of varicose veins #6 history of rectal bleeding #7 DVT prophylaxis Plan: Patient will be continued on breathing treatments with duo nebs and Pulmicort as well as Perforomist. Continue with prednisone 20 mg daily.. Breathing status much improved now. We will continue the pain management and bowel regimen. encourage Ambulation and incentive spirometry. Continue with Lasix. Continue with DVT prophylaxis. We will continue to follow closely and further recommendations based on the clinical course.
[2017-07-23] MEDS: HYDROmorphone PCA 5 MG/25 ML SYRINGE IV PRN ×3 (00:01→17:52)
[2017-07-23] MEDS: METOCLOPRAMIDE 5 MG/ML 2 ML VIAL IVP SCH ×4 (00:04→17:57)
[2017-07-23] MEDS: HEPARIN SODIUM,PORCINE 5,000 UNIT/ML 1 ML VIAL SQ SCH ×3 (00:04→17:57)
[2017-07-23] MEDS: KETOROLAC 30 MG/ML 1 ML VIAL IVP SCH ×2 (00:04→05:32)
[2017-07-23] MEDS: IPRATROPIUM-ALBUTEROL 3 ML NEB INHALATION PRN ×5 (01:24→20:01)
[2017-07-23] MEDS: LACTATED RINGERS 1,000 ML IV SCH ×2 (01:41→15:22)
[2017-07-23] MEDS: BUDESONIDE 0.5 MG/2 ML NEBU INHALATION SCH ×2 (07:29→20:01)
[2017-07-23] MEDS: FORMOTEROL FUMARATE 20 MCG/2 ML NEBU INHALATION SCH ×2 (07:29→20:01)
[2017-07-23 07:50] LABS: Basophils % (A) 0 %; CH 32.9; CHCM 32.5; Eosinophils # (A) 0.1 k/uL (0-0.7); Eosinophils % (A) 1 %; HCT 29.2 % (34.0-46.0); HDW 2.08; HGB 9.4 gm/dL (11.4-16.0); Luc # (Auto) 0.07; Luc % (Auto) 1; Lymphocytes # (A) 1.9 k/uL (1.0-4.8); Lymphocytes % (A) 14 %; MCH 32.7 pg (25.0-35.0); MCHC 32.1 g/dL (31.0-37.0); MCV 101.8 fL (80.0-100.0); Macrocytosis Slight; Mean Platelet Volume 8.3; Monocytes # (A) 0.7 k/uL (0-1.0); Monocytes % (A) 5 %; Neutrophils # (A) 11.1 k/uL (1.3-7.7); Neutrophils % (A) 80 %; RBC 2.86 m/uL (3.80-5.40); RDW 15.3 % (11.5-15.5); WBC 13.9 k/uL (3.8-10.6); WBC (Perox) 13.88
[2017-07-23 08:17] LABS: Blood Urea Nitrogen 18 mg/dL (7-17); Calcium 8.1 mg/dL (8.4-10.2); Chloride 91 mmol/L (98-107); Glucose 76 mg/dL (74-99); Non-African American GFR(MDRD) >60 (>60 ml/min/1.73 sqM); Sodium 134 mmol/L (137-145)
[2017-07-23 08:24] LABS: Anion Gap 4 mmol/L; Carbon Dioxide 39 mmol/L (22-30)
[2017-07-23] MEDS: FUROSEMIDE 40 MG TAB PO SCH (08:57)
[2017-07-23] MEDS: guaiFENesin-DM 600/30MG 1 EACH TAB.ER.12H PO SCH ×2 (08:58→21:44)
[2017-07-23] MEDS: FAMOTIDINE 20 MG TAB PO SCH ×2 (08:58→21:44)
[2017-07-23] MEDS: predniSONE 20 MG TAB PO SCH (08:58)
[2017-07-23] MEDS: HYDROcodone/APAP 10-325MG 1 EACH TAB PO PRN ×3 (11:49→23:17)
--- NOTE | 2017-07-23 13:44 | P.PN ---
Subjective Principal diagnosis: COPD, shortness of breath ,status post right colectomy A 62-year-old female patient with advanced and severe COPD along with various other comorbidities including rheumatoid arthritis, peripheral vascular disease and hypertension. History of DVT. The patient has a large right colonic polyp lesion/precancerous and for that reason the patient underwent a hemicolectomy. This was a right hemicolectomy. I'm seeing this patient postop day #4. The patient is doing well. Patient has been ambulating with physical therapy today and states she has been wheezy with activity. Minimal cough and congestion. She is using the incentive spirometer. She is on her bronchodilators. The chest x-ray from 07/17/2017 has been reviewed and showed no acute pulmonary process. Lung sounds are diminished, with no rails,rhonchi or wheezes. No nausea no vomiting. No abdominal pain. There has been a moderate amount of bloody drainage distal from the suture line of the abdomen after the ambulation. Abdomen is nondistended. No change in mental status. No other significant events over the past 24 hours. On 07/18/2017 the patient is seen in follow-up. She states she still has significant shortness of breath and wheezing with ambulation, and she is not able to effectively cough do to the abdominal incision and the pain associated with it. She is using incentive spirometer, her best IS effort is anywhere from [id number]. She continues on her bronchodilators, IV Solu-Medrol, Pulmicort and Perforomist nebulized treatments. She has been afebrile and hemodynamically stable. On examination her lungs sounds remain diminished throughout the lung guzman with a few faint end expiratory wheezes anteriorly. No signs of acute respiratory distress at this time. Patient remains on Dilaudid PRODUCT SAFETY OFFICER with oral hydrocodone for pain control which she states controls her pain with the exception for the coughing episodes. She is tolerating oral intake, abdomen is nondistended. Anticipate discharge home in the next 24 hours. On 07/19/2017 patient states some improvement in her respiratory status. She has been up ambulating in the cardoso independently without oxygen several times a day without significant respiratory distress. Her pulse oximetry does go down to 86% after ambulation for which home oxygen will be ordered. We'll continue IV Solu-Medrol today and will switch to oral prednisone 20 mg daily starting tomorrow. Her IS effort is between [id number] and she continues to improve on that. Good pain control with Dilaudid PRODUCT SAFETY OFFICER and oral hydrocodone. On examination she is awake alert, sitting up on edge of bed, in no apparent distress. Lung sounds are diminished with a few faint wheezes or anterior lung guzman. Patient was started on Mucinex yesterday, no chest congestion no fevers through the night. Oral diet as tolerated well, abdomen is nondistended. Possible discharge tomorrow On 07/20/2017 I'm seeing this patient for a follow-up. The patient is ambulating. The patient is feeling better. She is not having any major stroke difficulties in her COPD stable. We will switch her to prednisone orally today. Her pain is under good control. Abdominal incision site was leaking some serosanguineous material and I will let the surgeon and inspect the abdominal wounds. No nausea. No vomiting. No abdominal distention. No fever or chills. No leukocytosis. No other significant events overnight. On 07/21/2017, the patient's pulmonary status is stable. The patient however will be taken to the operating room for fascial dehiscence of the surgical wound. For that reason, the patient is nothing by mouth. Currently ambulating. No nausea. No vomiting. No abdominal pain. No significant shortness of breath. On 07/22/2017 the patient is resting comfortably in bed. As mentioned the patient has developed a facial dehiscence at the level of the abdominal wound and the patient underwent a surgical repair and closure yesterday. She is doing well. She is comfortable in bed. She is breathing well. She is tolerating diet. She'll be going tomorrow with an a.m. On 07/23/2017 the patient is resting in bed, in no acute distress. Pulmonary status continues to improve. Lung sounds are clear, no wheezes no rales no rhonchi. Patient ambulates about the room and in the hallway several times a day without any signs of respiratory distress. On 2 L oxygen per nasal cannula maintaining saturations around 94-95%. Afebrile, hemodynamically stable. Continues on prednisone taper and Pulmicort, formoterol and DuoNeb nebulized treatments. On 07/21/2017 patient had to undergo a repair of the fascial dehiscence of her mid abdominal incision. No evidence of any intraperitoneal leak or infection was seen, the fascia was closed, retention sutures were placed in the wound was packed with clean gauze. Sterile outer dressing and abdominal binder were placed. Patient can continues on Dilaudid PRODUCT SAFETY OFFICER with good pain control. Continues to use her incentive spirometer. The plan is for short -term rehab in view of a second operative intervention. Patient is stable from the pulmonary standpoint. Objective - Vital Signs Vital signs: Vital Signs Temp 98.1 F 07/23/17 08:00 Pulse 92 07/23/17 12:15 Resp 17 07/23/17 08:00 BP 108/62 07/23/17 08:00 Pulse Ox 94 L 07/23/17 08:00 Intake & Output 07/22/17 07/23/17 07/23/17 18:59 06:59 18:59 Intake Total 700 Output Total 1800 550 800 Balance -1800 150 -800 Intake: Intake, IV Titration 500 Amount Lactated Ringers 1,000 ml 500 @ 50 mls/hr IV .Q20H [facility] Rx#:[id number] Oral 200 Output: Urine 1800 550 800 Uretheral ([place]) 800 Other: Voiding Method Indwelling Catheter Indwelling Catheter Indwelling Catheter - Exam Gen. appearance No acute distress, oriented 3. HEENT examination is grossly unremarkable. Mucous membranes are moist. No oral lesions. Neck supple. Full range of motion. No adenopathy or thyromegaly. Cardiovascular examination reveals regular rhythm rate. S1-S2 normal. No S3- S4 or murmur. Lungs reveal diminished breath sounds. Few wheezes over anterior lungs, no rhonchi. No crackles. Breath sounds are equal bilaterally. Abdomen soft. No bowel sounds are heard. Tender on palpation over the incision. Abdominal binder in place. Extremities are intact. No cyanosis clubbing or edema. Skin without rash. The surgical wound is dry clean and intact. The incision is covered with a sterile gauze and an abdominal binder. Neurologic examination is nonfocal. Patient is alert and awake and oriented. Skeletal system no joint deformities or fractures or active arthritis. - Labs CBC & Chem 7: 07/23/17 07:19 07/23/17 07:19 Labs: Abnormal Lab Results - Last 24 Hours (Table) 07/23/17 07/23/17 Range/Units 07:19 07:19 WBC 13.9 H (3.8-10.6) k/uL RBC 2.86 L (3.80-5.40) m/uL Hgb 9.4 L (11.4-16.0) gm/dL Hct 29.2 L (34.0-46.0) % MCV 101.8 H (80.0-100.0) fL Neutrophils # 11.1 H (1.3-7.7) k/uL Sodium 134 L (137-145) mmol/L Chloride 91 L (98-107) mmol/L Carbon Dioxide 39 H (22-30) mmol/L BUN 18 H (7-17) mg/dL Calcium 8.1 L (8.4-10.2) mg/dL Assessment and Plan Plan: Assessment 1 right hemicolectomy and the patient is postop day #10 with secondary fascial dehiscence that was surgically repaired yesterday. 2 advanced oxygen-dependent COPD, patient has been doing well, using incentive spirometer. Ambulating. Continue prednisone burst taper starting with 20 mg dose. 3 chronic hypoxic history failure secondary to COPD, will go home on oxygen at 2 l/min 4 chronic dyspnea secondary to COPD 5 hypertension 6 rheumatoid arthritis 7 chronic alcoholism, currently inactive in stable 8 postoperative anemia, hemoglobin improved at 9.4 PLAN Clinically stable. Pulmonary status is stable. Advance diet. Will be considered for discharge tomorrow to [facility] if she continues to be stable. I performed a history & physical examination of the patient and discussed their management with my nurse practitioner, Savanah Mart. I reviewed the nurse practitioner's note and agree with the documented findings and plan of care.
--- NOTE | 2017-07-23 14:09 | P.PN ---
<Chapis Ramirez - Last Filed: 07/23/17 14:00> Subjective 62-year-old female being seen on rounds. Currently is sitting up in a chair. Patient continues to use ADMISSIONS COORDINATOR dilaudid with good pain control. Patient needs encouragement to use the incentive spirometer. Patient underwent July 21 repair fascia dehiscence case technician is pursuing the discharge plan patient is requesting to go to [facility] subacute rehab. Patient continues to be followed by pulmonary service. Currently on nasal cannula 2 L maintaining a sat 94%. Objective - Vital Signs Vital signs: Vital Signs Temp 98.1 F 07/23/17 08:00 Pulse 92 07/23/17 12:15 Resp 17 07/23/17 08:00 BP 108/62 07/23/17 08:00 Pulse Ox 94 L 07/23/17 08:00 Intake & Output 07/22/17 07/23/17 07/23/17 18:59 06:59 18:59 Intake Total 700 Output Total 1800 550 800 Balance -1800 150 -800 Intake: Intake, IV Titration 500 Amount Lactated Ringers 1,000 ml 500 @ 50 mls/hr IV .Q20H [facility] Rx#:[id number] Oral 200 Output: Urine 1800 550 800 Uretheral ([place]) 800 Other: Voiding Method Indwelling Catheter Indwelling Catheter Indwelling Catheter - Exam Physical exam 62-year-old female sitting up in a chair does not appear in any acute distress talkative Lungs adequate air movement bilaterally no wheezing noted 2 L nasal cannula keeping a sat 94% no cough noted Heart S1-S2 audible regular denying chest pain Abdomen abdominal binder in place surgical dressing dry states no bowel movement passing gas no reports of nausea vomiting Extremities no edema noted - Labs CBC & Chem 7: 07/23/17 07:19 07/23/17 07:19 Labs: Abnormal Lab Results - Last 24 Hours (Table) 07/23/17 07/23/17 Range/Units 07:19 07:19 WBC 13.9 H (3.8-10.6) k/uL RBC 2.86 L (3.80-5.40) m/uL Hgb 9.4 L (11.4-16.0) gm/dL Hct 29.2 L (34.0-46.0) % MCV 101.8 H (80.0-100.0) fL Neutrophils # 11.1 H (1.3-7.7) k/uL Sodium 134 L (137-145) mmol/L Chloride 91 L (98-107) mmol/L Carbon Dioxide 39 H (22-30) mmol/L BUN 18 H (7-17) mg/dL Calcium 8.1 L (8.4-10.2) mg/dL Assessment and Plan Plan: Impression Status post right colectomy secondary to a polypoid lesion done on July 13 Rheumatoid arthritis Hypertension essential Acute exacerbation COPD History rectal bleeding Chronic constipation Chronic EtOH dependency vulvar cancer history of Hyperkalemia Leukocytosis suspect steroid induced Status post 21 of July repair of the fascia dehiscene mid abdominal incision Plan Continue postop surgical care Pain control Resume home meds as appropriate Increase activity Encourage the use of the incentive spirometer use every 1 hour while awake Repeat labs in the morning DVT and GI prophylaxis The above impression and plan of care have been discussed and directed by signing physician. Chapis Ramirez nurse practitioner acting as scribe for signing physician. <Brenden Burger - Last Filed: 07/23/17 14:21> Objective - Vital Signs Vital signs: Vital Signs Temp 98.1 F 07/23/17 08:00 Pulse 92 07/23/17 12:15 Resp 17 07/23/17 08:00 BP 108/62 07/23/17 08:00 Pulse Ox 94 L 07/23/17 08:00 Intake & Output 07/22/17 07/23/17 07/23/17 18:59 06:59 18:59 Intake Total 700 Output Total 1800 550 800 Balance -1800 150 -800 Intake: Intake, IV Titration 500 Amount Lactated Ringers 1,000 ml 500 @ 50 mls/hr IV .Q20H [facility] Rx#:[id number] Oral 200 Output: Urine 1800 550 800 Uretheral ([place]) 800 Other: Voiding Method Indwelling Catheter Indwelling Catheter Indwelling Catheter - Labs CBC & Chem 7: 07/23/17 07:19 07/23/17 07:19 Labs: Abnormal Lab Results - Last 24 Hours (Table) 07/23/17 07/23/17 Range/Units 07:19 07:19 WBC 13.9 H (3.8-10.6) k/uL RBC 2.86 L (3.80-5.40) m/uL Hgb 9.4 L (11.4-16.0) gm/dL Hct 29.2 L (34.0-46.0) % MCV 101.8 H (80.0-100.0) fL Neutrophils # 11.1 H (1.3-7.7) k/uL Sodium 134 L (137-145) mmol/L Chloride 91 L (98-107) mmol/L Carbon Dioxide 39 H (22-30) mmol/L BUN 18 H (7-17) mg/dL Calcium 8.1 L (8.4-10.2) mg/dL Assessment and Plan (1) Colon polyp Status: Acute Plan: Patient is doing well today. Pain is mild to moderate. She is tolerating her diet. She is passing flatus. No bowel movement. Patient may benefit from short-term rehab. Begin wound care today.
[2017-07-23] MEDS: MULTIVITAMINS, THERA 1 EACH TAB PO SCH (15:01)
[2017-07-23] MEDS: LISINOPRIL 20 MG TAB PO SCH (15:22)
[2017-07-23] MEDS: amLODIPine 5 MG TAB PO SCH (15:22)
[2017-07-23] MEDS: MONTELUKAST 10 MG TAB PO SCH (21:44)
--- NOTE | 2017-07-24 00:13 | P.PN ---
Subjective Principal diagnosis: Status post right colectomy COPD exacerbation Patient is a 62-year-old female with a known history of hypertension and COPD and rheumatoid that is currently not taking any immunosuppressants was admitted to the hospital for right colectomy due to recently diagnosed polypoid lesion. Patient was evaluated by Dr. Ring and had endoscopic resection was unsuccessful. Patient today underwent right colectomy along with Extensive laparoscopic lysis of adhesions and excision suprapubic sebaceous cyst. Patient is currently covering of mild short of breath. And also abdominal discomfort. Otherwise denied any chest pain. No nausea or vomiting. Pain is fairly controlled. 07/21/2017 Patient currently denied any chest pain are worse and short of breath. Patient is tolerating diet. Patient is being taken to or for Repair Fascial Dehiscence. Continue the pain management. Otherwise no acute overnight issues. 07/22/2017 Patient denied any chest pain or worsening short of breath. Patient is on ADULT SECONDARY EDUCATION INSTRUCTOR pump for pain control. No complaints of abdominal pain. Patient is tolerating by mouth diet. No fever no chills. No acute overnight issues. 07/23/2017 Patient is controlled on ADULT SECONDARY EDUCATION INSTRUCTOR pump. Breathing status is stable. Wound dressing change was done today. Patient is tolerating diet. Anticipate discharged to rehab in next 1-2 days when pain is better controlled. All other review of systems negative except as above Current medications reviewed. Objective - Vital Signs Vital signs: Vital Signs Temp 98.3 F 07/23/17 16:30 Pulse 94 07/23/17 20:21 Resp 16 07/23/17 16:30 BP 127/86 07/23/17 16:30 Pulse Ox 95 07/23/17 16:30 Intake & Output 07/23/17 07/23/17 07/24/17 06:59 18:59 06:59 Intake Total 700 150 Output Total 550 800 Balance 150 -650 Intake: Intake, IV Titration 500 150 Amount Lactated Ringers 1,000 ml 500 150 @ 50 mls/hr IV .Q20H [facility] Rx#:[id number] Oral 200 Output: Urine 550 800 Uretheral ([place]) 800 Other: Voiding Method Indwelling Catheter Toilet # Voids 4 - Exam Patient is lying in the bed comfortably, no acute distress, awake alert and oriented.. HEENT: Normocephalic. Neck is supple. Pupils reactive. Nostrils clear. Oral cavity is moist. Ears reveal no drainage. Neck reveals no JVD, carotid bruits, or thyromegaly. CHEST EXAMINATION: Trachea is central. Symmetrical expansion. No wheezing. No crackles. CARDIAC: Normal S1, S2 with no gallops. No murmurs ABDOMEN: Soft. Bowel sounds normal. No organomegaly. No abdominal bruits. Mid abdominal incision for laparoscopic surgery. Minimal tenderness to palpation no guarding no rigidity. Extremities reveal no edema. No clubbing or cyanosis Neurologically awake, alert, oriented x3 with well-coordinated movements. Skin: no rash or skin lesions Musculoskeletal: no joint swelling or deformity. - Labs CBC & Chem 7: 07/23/17 07:19 07/23/17 07:19 Labs: Abnormal Lab Results - Last 24 Hours (Table) 07/23/17 07/23/17 Range/Units 07:19 07:19 WBC 13.9 H (3.8-10.6) k/uL RBC 2.86 L (3.80-5.40) m/uL Hgb 9.4 L (11.4-16.0) gm/dL Hct 29.2 L (34.0-46.0) % MCV 101.8 H (80.0-100.0) fL Neutrophils # 11.1 H (1.3-7.7) k/uL Sodium 134 L (137-145) mmol/L Chloride 91 L (98-107) mmol/L Carbon Dioxide 39 H (22-30) mmol/L BUN 18 H (7-17) mg/dL Calcium 8.1 L (8.4-10.2) mg/dL Assessment and Plan Plan: #1 status post right colectomy secondary to polypoid lesion #2 surgical wound dehiscence. OR for repair done on 07/21/2017 #2 COPD with acute exacerbation #3 hypertension #4 rheumatoid arthritis. Patient is currently not taking any immunosuppressive agents. #5 history of varicose veins #6 history of rectal bleeding #7 DVT prophylaxis Plan: Patient will be continued on breathing treatments with duo nebs and Pulmicort as well as Perforomist. Continue with prednisone 20 mg daily.. Breathing status much improved now. We will continue the pain management and bowel regimen. encourage Ambulation and incentive spirometry. Continue with Lasix. Continue with DVT prophylaxis. We will continue to follow closely and further recommendations based on the clinical course.
[2017-07-24] MEDS: METOCLOPRAMIDE 5 MG/ML 2 ML VIAL IVP SCH ×4 (00:24→17:25)
[2017-07-24] MEDS: HEPARIN SODIUM,PORCINE 5,000 UNIT/ML 1 ML VIAL SQ SCH ×3 (00:24→17:25)
[2017-07-24] MEDS: IPRATROPIUM-ALBUTEROL 3 ML NEB INHALATION PRN ×5 (03:10→20:53)
[2017-07-24] MEDS: HYDROmorphone PCA 5 MG/25 ML SYRINGE IV PRN ×3 (05:30→19:12)
[2017-07-24] MEDS: HYDROcodone/APAP 10-325MG 1 EACH TAB PO PRN ×3 (07:15→21:18)
[2017-07-24] MEDS: LACTATED RINGERS 1,000 ML IV SCH ×2 (07:25→10:21)
[2017-07-24] MEDS: guaiFENesin-DM 600/30MG 1 EACH TAB.ER.12H PO SCH ×2 (08:39→21:18)
[2017-07-24] MEDS: amLODIPine 5 MG TAB PO SCH (08:39)
[2017-07-24] MEDS: LISINOPRIL 20 MG TAB PO SCH (08:39)
[2017-07-24] MEDS: FAMOTIDINE 20 MG TAB PO SCH ×2 (08:39→21:18)
[2017-07-24] MEDS: FUROSEMIDE 40 MG TAB PO SCH (08:39)
[2017-07-24] MEDS: BUDESONIDE 0.5 MG/2 ML NEBU INHALATION SCH ×2 (08:44→20:53)
[2017-07-24] MEDS: FORMOTEROL FUMARATE 20 MCG/2 ML NEBU INHALATION SCH ×2 (08:44→20:53)
--- NOTE | 2017-07-24 09:25 | P.PN ---
<Chapis Ramirez M - Last Filed: 07/24/17 09:19> Subjective 62-year-old female resting in bed states pain medication has been effective for pain control. Currently has an abdominal binder in place. Surgical dressing dry. Reports no nausea vomiting. Reports passing gas no stool tolerating dietPatient underwent July 21 repair fascia dehiscence July 13 patient did undergo right colectomy secondary to polypoid lesion shelter case manager is pursuing the discharge plan patient is requesting to go to [facility] rehab. Objective - Vital Signs Vital signs: Vital Signs Temp 97.9 F 07/24/17 08:08 Pulse 92 07/24/17 09:08 Resp 16 07/24/17 08:08 BP 135/70 07/24/17 08:08 Pulse Ox 88 L 07/24/17 08:08 Intake & Output 07/23/17 07/24/17 07/24/17 18:59 06:59 18:59 Intake Total 150 Output Total 800 Balance -650 Intake: Intake, IV Titration 150 Amount Lactated Ringers 1,000 ml 150 @ 50 mls/hr IV .Q20H [facility] Rx#:[id number] Output: Urine 800 Uretheral ([place]) 800 Other: Voiding Method Toilet Toilet # Voids 4 3 - Exam Physical exam 62-year-old female resting in bed does not appear in any acute distress talkative Lungs adequate air movement bilaterally no wheezing noted 2 L nasal cannula keeping a sat 94% no cough noted Heart S1-S2 audible regular denying chest pain Abdomen abdominal binder in place surgical dressing dry states no bowel movement passing gas no reports of nausea vomiting tolerating a diet Extremities no edema noted - Labs CBC & Chem 7: 07/23/17 07:19 07/23/17 07:19 Assessment and Plan Plan: Impression Status post right colectomy secondary to a polypoid lesion done on July 13 Rheumatoid arthritis Hypertension essential Acute exacerbation COPD History rectal bleeding Chronic constipation Chronic EtOH dependency vulvar cancer history of Hyperkalemia Leukocytosis suspect steroid induced Status post 21 of July repair of the fascia dehiscene mid abdominal incision Deconditioned debilitated Plan Continue postop surgical care Pain control Resume home meds as appropriate Increase activity Encourage the use of the incentive spirometer use every 1 hour while awake Repeat labs in the morning DVT and GI prophylaxis cargo and ramp services manager to pursue the discharge plan patient requesting [facility] subacute rehab The above impression and plan of care have been discussed and directed by signing physician. Chapis Ramirez nurse practitioner acting as scribe for signing physician. <Brenden Burger - Last Filed: 07/24/17 12:56> Objective - Vital Signs Vital signs: Vital Signs Temp 98.5 F 07/24/17 11:41 Pulse 81 07/24/17 11:41 Resp 16 07/24/17 11:41 BP 127/51 07/24/17 11:41 Pulse Ox 94 L 07/24/17 11:41 Intake & Output 07/23/17 07/24/17 07/24/17 18:59 06:59 18:59 Intake Total 150 Output Total 800 Balance -650 Intake: Intake, IV Titration 150 Amount Lactated Ringers 1,000 ml 150 @ 50 mls/hr IV .Q20H [facility] Rx#:[id number] Output: Urine 800 Uretheral ([place]) 800 Other: Voiding Method Toilet Toilet # Voids 4 2 - Labs CBC & Chem 7: 07/23/17 07:19 07/23/17 07:19 Assessment and Plan (1) Colon polyp Status: Acute Plan: Patient doing better today. Pain is improved. Tolerating diet. Dressing changes to begin today.
[2017-07-24] MEDS: predniSONE 20 MG TAB PO SCH (10:24)
[2017-07-24] MEDS: MULTIVITAMINS, THERA 1 EACH TAB PO SCH (11:27)
--- NOTE | 2017-07-24 11:34 | P.PN ---
Subjective Patient is a 62-year-old female with a known history of hypertension and COPD and rheumatoid that is currently not taking any immunosuppressants was admitted to the hospital for right colectomy due to recently diagnosed polypoid lesion. No cigarette in overnight events. Next Patient denied any short of breath patient denied any cough runny nose. Patient is complaining of abdominal soreness. Objective - Vital Signs Vital signs: Vital Signs Temp 97.9 F 07/24/17 08:08 Pulse 92 07/24/17 09:08 Resp 16 07/24/17 08:08 BP 135/70 07/24/17 08:08 Pulse Ox 88 L 07/24/17 08:08 Intake & Output 07/23/17 07/24/17 07/24/17 18:59 06:59 18:59 Intake Total 150 Output Total 800 Balance -650 Intake: Intake, IV Titration 150 Amount Lactated Ringers 1,000 ml 150 @ 50 mls/hr IV .Q20H [facility] Rx#:[id number] Output: Urine 800 Uretheral ([place]) 800 Other: Voiding Method Toilet Toilet # Voids 4 2 - Exam Patient is lying in the bed comfortably, no acute distress, awake alert and oriented.. HEENT: Normocephalic. Neck is supple. Pupils reactive. Nostrils clear. Oral cavity is moist. Ears reveal no drainage. Neck reveals no JVD, carotid bruits, or thyromegaly. CHEST EXAMINATION: Trachea is central. Symmetrical expansion. No wheezing. No crackles. CARDIAC: Normal S1, S2 with no gallops. No murmurs ABDOMEN: Soft. Bowel sounds normal. No organomegaly. No abdominal bruits. Mid abdominal incision for laparoscopic surgery. Minimal tenderness to palpation no guarding no rigidity. Extremities reveal no edema. No clubbing or cyanosis Neurologically awake, alert, oriented x3 with well-coordinated movements. Skin: no rash or skin lesions Musculoskeletal: no joint swelling or deformity. - Labs CBC & Chem 7: 07/23/17 07:19 07/23/17 07:19 Assessment and Plan Plan: #1 status post right colectomy secondary to polypoid lesion #2 surgical wound dehiscence. OR for repair done on 07/21/2017 #2 COPD with acute exacerbation #3 hypertension #4 rheumatoid arthritis. Patient is currently not taking any immunosuppressive agents. #5 history of varicose veins #6 history of rectal bleeding #7 DVT prophylaxis Plan: Patient will be continued on breathing treatments with duo nebs and Pulmicort as well as Perforomist. Continue with prednisone 20 mg daily.. Breathing status much improved now. We will continue the pain management and bowel regimen. encourage Ambulation and incentive spirometry. Continue with Lasix. Continue with DVT prophylaxis. We will continue to follow.
--- NOTE | 2017-07-24 16:27 | P.PN ---
Subjective Principal diagnosis: COPD, shortness of breath ,status post right colectomy A 62-year-old female patient with advanced and severe COPD along with various other comorbidities including rheumatoid arthritis, peripheral vascular disease and hypertension. History of DVT. The patient has a large right colonic polyp lesion/precancerous and for that reason the patient underwent a hemicolectomy. This was a right hemicolectomy. I'm seeing this patient postop day #4. The patient is doing well. Patient has been ambulating with physical therapy today and states she has been wheezy with activity. Minimal cough and congestion. She is using the incentive spirometer. She is on her bronchodilators. The chest x-ray from 07/17/2017 has been reviewed and showed no acute pulmonary process. Lung sounds are diminished, with no rails,rhonchi or wheezes. No nausea no vomiting. No abdominal pain. There has been a moderate amount of bloody drainage distal from the suture line of the abdomen after the ambulation. Abdomen is nondistended. No change in mental status. No other significant events over the past 24 hours. On 07/18/2017 the patient is seen in follow-up. She states she still has significant shortness of breath and wheezing with ambulation, and she is not able to effectively cough do to the abdominal incision and the pain associated with it. She is using incentive spirometer, her best IS effort is anywhere from 750 2000. She continues on her bronchodilators, IV Solu-Medrol, Pulmicort and Perforomist nebulized treatments. She has been afebrile and hemodynamically stable. On examination her lungs sounds remain diminished throughout the lung guzman with a few faint end expiratory wheezes anteriorly. No signs of acute respiratory distress at this time. Patient remains on Dilaudid RECORDS OFFICER with oral hydrocodone for pain control which she states controls her pain with the exception for the coughing episodes. She is tolerating oral intake, abdomen is nondistended. Anticipate discharge home in the next 24 hours. On 07/19/2017 patient states some improvement in her respiratory status. She has been up ambulating in the cardoso independently without oxygen several times a day without significant respiratory distress. Her pulse oximetry does go down to 86% after ambulation for which home oxygen will be ordered. We'll continue IV Solu-Medrol today and will switch to oral prednisone 20 mg daily starting tomorrow. Her IS effort is between [id number] and she continues to improve on that. Good pain control with Dilaudid RECORDS OFFICER and oral hydrocodone. On examination she is awake alert, sitting up on edge of bed, in no apparent distress. Lung sounds are diminished with a few faint wheezes or anterior lung guzman. Patient was started on Mucinex yesterday, no chest congestion no fevers through the night. Oral diet as tolerated well, abdomen is nondistended. Possible discharge tomorrow On 07/20/2017 I'm seeing this patient for a follow-up. The patient is ambulating. The patient is feeling better. She is not having any major stroke difficulties in her COPD stable. We will switch her to prednisone orally today. Her pain is under good control. Abdominal incision site was leaking some serosanguineous material and I will let the surgeon and inspect the abdominal wounds. No nausea. No vomiting. No abdominal distention. No fever or chills. No leukocytosis. No other significant events overnight. On 07/21/2017, the patient's pulmonary status is stable. The patient however will be taken to the operating room for fascial dehiscence of the surgical wound. For that reason, the patient is nothing by mouth. Currently ambulating. No nausea. No vomiting. No abdominal pain. No significant shortness of breath. On 07/22/2017 the patient is resting comfortably in bed. As mentioned the patient has developed a facial dehiscence at the level of the abdominal wound and the patient underwent a surgical repair and closure yesterday. She is doing well. She is comfortable in bed. She is breathing well. She is tolerating diet. She'll be going tomorrow with an a.m. On 07/23/2017 the patient is resting in bed, in no acute distress. Pulmonary status continues to improve. Lung sounds are clear, no wheezes no rales no rhonchi. Patient ambulates about the room and in the hallway several times a day without any signs of respiratory distress. On 2 L oxygen per nasal cannula maintaining saturations around 94-95%. Afebrile, hemodynamically stable. Continues on prednisone taper and Pulmicort, formoterol and DuoNeb nebulized treatments. On 07/21/2017 patient had to undergo a repair of the fascial dehiscence of her mid abdominal incision. No evidence of any intraperitoneal leak or infection was seen, the fascia was closed, retention sutures were placed in the wound was packed with clean gauze. Sterile outer dressing and abdominal binder were placed. Patient can continues on Dilaudid RECORDS OFFICER with good pain control. Continues to use her incentive spirometer. The plan is for short -term rehab in view of a second operative intervention. Patient is stable from the pulmonary standpoint. On 07/24/2017 the patient is seen in follow-up. Continues to be stable from pulmonary standpoint. Lung sounds are clear, no wheezes, no rales or rhonchi. No specific respiratory complaints. Continues to be compliant with her incentive spirometer, her IS effort is at about 1000. Patient has afebrile. Pain control is reasonable with Dilaudid RECORDS OFFICER. Tolerating oral intake, no nausea no vomiting. Discharge planning is arranging placement tomorrow with subacute rehab. Midabdominal incision is covered with sterile gauze and abdominal binder. Anticipate discharge in the next 24 hours. Objective - Vital Signs Vital signs: Vital Signs Temp 98.5 F 07/24/17 11:41 Pulse 92 07/24/17 13:29 Resp 16 07/24/17 11:41 BP 127/51 07/24/17 11:41 Pulse Ox 94 L 07/24/17 11:41 Intake & Output 07/23/17 07/24/17 07/24/17 18:59 06:59 18:59 Intake Total 150 Output Total 800 Balance -650 Intake: Intake, IV Titration 150 Amount Lactated Ringers 1,000 ml 150 @ 50 mls/hr IV .Q20H [facility] Rx#:[id number] Output: Urine 800 Uretheral ([place]) 800 Other: Voiding Method Toilet Toilet # Voids 4 2 4 - Exam Gen. appearance No acute distress, oriented 3. HEENT examination is grossly unremarkable. Mucous membranes are moist. No oral lesions. Neck supple. Full range of motion. No adenopathy or thyromegaly. Cardiovascular examination reveals regular rhythm rate. S1-S2 normal. No S3- S4 or murmur. Lungs reveal diminished breath sounds. Few wheezes over anterior lungs, no rhonchi. No crackles. Breath sounds are equal bilaterally. Abdomen soft. No bowel sounds are heard. Tender on palpation over the incision. Abdominal binder in place. Extremities are intact. No cyanosis clubbing or edema. Skin without rash. The surgical wound is dry clean and intact. The incision is covered with a sterile gauze and an abdominal binder. Neurologic examination is nonfocal. Patient is alert and awake and oriented. Skeletal system no joint deformities or fractures or active arthritis. - Labs CBC & Chem 7: 07/23/17 07:19 07/23/17 07:19 Assessment and Plan Plan: Assessment 1 right hemicolectomy and the patient is postop day #11 with secondary fascial dehiscence that was surgically repaired yesterday. 2 advanced oxygen-dependent COPD, patient has been doing well, using incentive spirometer. Ambulating. Continue prednisone burst taper starting with 20 mg dose. 3 chronic hypoxic history failure secondary to COPD, will go home on oxygen at 2 l/min 4 chronic dyspnea secondary to COPD 5 hypertension 6 rheumatoid arthritis 7 chronic alcoholism, currently inactive in stable 8 postoperative anemia, hemoglobin improved at 9.4 PLAN Clinically stable. Pulmonary status is stable. We'll sign off, patient is to follow-up with Dr. Goodman in 1-2 weeks after discharge. Continue incentive spirometry and ambulation I performed a history & physical examination of the patient and discussed their management with my nurse practitioner, Savanah Mart. I reviewed the nurse practitioner's note and agree with the documented findings and plan of care.
[2017-07-24] MEDS: MONTELUKAST 10 MG TAB PO SCH (21:18)
[2017-07-25] MEDS: METOCLOPRAMIDE 5 MG/ML 2 ML VIAL IVP SCH ×2 (00:37→06:35)
[2017-07-25] MEDS: HEPARIN SODIUM,PORCINE 5,000 UNIT/ML 1 ML VIAL SQ SCH ×2 (00:47→08:03)
[2017-07-25] MEDS: HYDROcodone/APAP 10-325MG 1 EACH TAB PO PRN ×2 (04:14→10:47)
[2017-07-25] MEDS: LACTATED RINGERS 1,000 ML IV SCH ×2 (05:42)
[2017-07-25] MEDS: HYDROmorphone PCA 5 MG/25 ML SYRINGE IV PRN (06:58)
[2017-07-25] MEDS: IPRATROPIUM-ALBUTEROL 3 ML NEB INHALATION PRN ×2 (08:02→11:58)
[2017-07-25] MEDS: BUDESONIDE 0.5 MG/2 ML NEBU INHALATION SCH (08:02)
[2017-07-25] MEDS: FORMOTEROL FUMARATE 20 MCG/2 ML NEBU INHALATION SCH (08:02)
[2017-07-25] MEDS: predniSONE 20 MG TAB PO SCH (08:03)
[2017-07-25] MEDS: amLODIPine 5 MG TAB PO SCH (08:03)
[2017-07-25] MEDS: FUROSEMIDE 40 MG TAB PO SCH (08:03)
[2017-07-25] MEDS: FAMOTIDINE 20 MG TAB PO SCH (08:03)
[2017-07-25] MEDS: LISINOPRIL 20 MG TAB PO SCH (08:03)
[2017-07-25] MEDS: guaiFENesin-DM 600/30MG 1 EACH TAB.ER.12H PO SCH (08:03)
--- NOTE | 2017-07-25 11:13 | P.DS ---
Providers Date of admission: 07/13/17 08:25 Expected date of discharge: 07/25/17 Attending physician: Brenden Burger Consults: 07/13/17 14:32 Consult Physician Routine Consulting Provider: Liliana Calixto Consult Reason/Comments: Medical management Do you want consulting provider notified?: Yes 07/13/17 14:47 Consult Physician Routine Consulting Provider: Jose Elias Goodman Consult Reason/Comments: COPD Do you want consulting provider notified?: Yes Primary care physician: Vannessa Boothe - Discharge Diagnosis(es) (1) Colon polyp Patient admitted for elective right colectomy. Postoperatively the patient was initially doing well but developed a fascial dehiscence during her postoperative stay. The patient underwent reclosure over a fascial dehiscence. She is doing better at this time. Midline wound is healing up properly. She is tolerating diet. She is having good bowel function at this point. During this hospital stay and she was seen by pulmonary and the hospitalist. She is being discharged today with plans for outpatient follow-up with myself. Homecare for wound management will be arranged. Current Visit: Yes Status: Acute Plan - Discharge Summary New Discharge Prescriptions: No Action amLODIPine BESYLATE [Amlodipine Besylate] 5 mg PO QAM Hydrocodone/Acetaminophen [Hydrocodon-Acetaminophn 10-325] 1 tab PO BID PRN PRN Reason: Pain Benazepril HCl 20 mg PO QAM Furosemide [Lasix] 40 mg PO DAILY Montelukast [Singulair] 10 mg PO HS Budesonide [Pulmicort] 0.5 mg INHALATION RT-DAILY Formoterol Fumarate [Perforomist] 1 vial INHALATION RT-DAILY Ipratropium Nebulized [Atrovent Nebulized] 1 vial INHALATION RT-HS Dextroamphetamine/Amphetamine [Adderall Xr] 15 mg PO QAM Etanercept [Enbrel] 50 mg SQ [id number] PRN PRN Reason: arthritis Polyethylene Glycol 3350 [Miralax] 17 gm PO DAILY Multivit-Min/FA/Lycopen/Lutein [Centrum Silver Tablet] 1 tab PO DAILY predniSONE 10 mg PO DIRECTED Discharge Medication List Benazepril HCl 20 mg PO QAM 01/24/16 [History] Hydrocodone/Acetaminophen [Hydrocodon-Acetaminophn 10-325] 1 tab PO BID PRN [History] amLODIPine BESYLATE [Amlodipine Besylate] 5 mg PO QAM 01/24/16 [History] Budesonide [Pulmicort] 0.5 mg INHALATION RT-DAILY 05/31/17 [History] Formoterol Fumarate [Perforomist] 1 vial INHALATION RT-DAILY 05/31/17 [History] Furosemide [Lasix] 40 mg PO DAILY 05/31/17 [History] Ipratropium Nebulized [Atrovent Nebulized] 1 vial INHALATION RT-HS 05/31/17 [ History] Montelukast [Singulair] 10 mg PO HS 05/31/17 [History] Dextroamphetamine/Amphetamine [Adderall Xr] 15 mg PO QAM 06/04/17 [History] Etanercept [Enbrel] 50 mg SQ [id number] PRN 07/12/17 [History] Multivit-Min/FA/Lycopen/Lutein [Centrum Silver Tablet] 1 tab PO DAILY 07/12/17 [ History] Polyethylene Glycol 3350 [Miralax] 17 gm PO DAILY 07/12/17 [History] predniSONE 10 mg PO DIRECTED 07/12/17 [History] Follow up Appointment(s)/Referral(s): [facility], [NON-STAFF] - Activity/Diet/Wound Care/Special Instructions: [facility] to supply Oxygen [phone].
[2017-07-25 11:20] VITALS: BP 101/62; RESP 16; TEMP 98.5
[2017-07-25 12:01] VITALS: PULSE 92
--- NOTE | 2017-07-25 14:04 | P.PN ---
Subjective Progress note being dictated for Dr. Cook. Patient is a 62-year-old female with a known history of hypertension and COPD and rheumatoid that is currently not taking any immunosuppressants was admitted to the hospital for right colectomy due to recently diagnosed polypoid lesion. Patient was evaluated by Dr. Ring and had endoscopic resection was unsuccessful. Patient today underwent right colectomy along with Extensive laparoscopic lysis of adhesions and excision suprapubic sebaceous cyst. Patient is currently covering of mild short of breath. And also abdominal discomfort. Otherwise denied any chest pain. No nausea or vomiting. Pain is fairly controlled. 07/14/2017 Patients breathing status improved. Patient was seen by pulmonary. Was started on IV steroids. Patient still having abdominal soreness. Has not passed flatus. Otherwise no acute overnight issues. No fever no chills. No chest pain or worsening short of breath. 07/15/2017 Patient denied any chest pain or short of breath. Patient is still complaining of abdominal pain. Patient did not have any bowel movement or pass flatness at. Patient is able to ambulate. Tolerating clear liquids. No other acute overnight issues. 07/16/2017 ambulating, tolerating exertion well. Incentive spirometer up to 1000. No bowel movement, passing flatus. Denies nausea, vomiting. Pain control with AMBULANCE ATTENDANT. Afebrile. WBC 14.2, hemoglobin 10.9. 07/17/2017 patient lying flat in bed without difficulty, complaining of " lung congestion". Denies cough. Ambulating in hallway, tolerating exertion well. Tolerating low fiber diet with no nausea vomiting or diarrhea. No bowel movement, tolerating flatus. Potassium 5.5. White count improving. Hemoglobin 10.2. Afebrile. Pain controlled with AMBULANCE ATTENDANT. 07/18/2017. Maintaining O2 sats in the 90s on 2 L nasal cannula in a patient who does not wear oxygen at home. Incentive spirometer up to 750 to 1000. Breathing improving on nebulized bronchodilators and steroids. Pain controlled with AMBULANCE ATTENDANT. Ambulating in hallway, tolerating exertion well. Afebrile. Soft bowel movement with maroon tinged reported. Hemoglobin 9.6. Tolerating low fiber diet/low potassum. Potassium 5.6. 07/19/2017 ambulating in cardoso. Continues on Dilaudid AMBULANCE ATTENDANT, pain controlled. Positive bowel movement. Hemoglobin 9.8. Potassium 5.2. 07/20/2017. Remains on AMBULANCE ATTENDANT as per surgery. Pain controlled. Ambulating in hallway multiple times. Good diet intake. Oozy incision site, hemoglobin 8.9. Consuming 75-100% of low fiber/low potassium diet with no nausea vomiting. Positive bowel movement. 07/25/2017. No acute overnight issues. Doing well. Good diet intake with no nausea vomiting or diarrhea. Ambulating, tolerating increase in exertion well. RN checking O2 sat on room air after ambulation for potential home oxygen at discharge. Discharge planning in progress for today. Borderline hypotension, Systolic blood pressures in the low 100s. T-max 100.8, currently afebrile, and ABC 13.9. Objective - Vital Signs Vital signs: Vital Signs Temp 98.5 F 07/25/17 11:19 Pulse 92 07/25/17 12:08 Resp 16 07/25/17 11:19 BP 101/62 07/25/17 11:19 Pulse Ox 91 L 07/25/17 11:19 Intake & Output 07/24/17 07/25/17 07/25/17 18:59 06:59 18:59 Intake Total 860 180 Balance 860 180 Intake: IV 120 .9 120 Oral 740 180 Other: Voiding Method Toilet Toilet # Voids 4 2 1 - Exam Patient is sitting up in bed, comfortable, no acute distress, awake alert and oriented. HEENT: Normocephalic. Neck is supple. Pupils reactive. Oral cavity is moist. Neck reveals no JVD, carotid bruits, or thyromegaly. CHEST EXAMINATION: Trachea is central. Symmetrical expansion. No wheezing. No crackles. CARDIAC: Normal S1, S2 with no gallops. No murmurs ABDOMEN: Soft. Bowel sounds normal. No organomegaly. Status post surgery abdominal surgery, Positive bowel sounds Extremities reveal no edema. No clubbing or cyanosis Neurologically awake, alert, oriented x3 with well-coordinated movements. Skin: no rash or skin lesions Musculoskeletal: no joint swelling or deformity. - Labs CBC & Chem 7: 07/23/17 07:19 07/23/17 07:19 Assessment and Plan Plan: #1 status post right colectomy secondary to polypoid lesion #2 COPD with acute exacerbation #3 hypertension #4 rheumatoid arthritis. Patient is currently not taking any immunosuppressive agents. #5 history of varicose veins #6 history of rectal bleeding Plan: Continue on current medication regime, nebulized bronchodilators, steroids , monitoring and symptomatic treatment. Discharge planning in progress for today as per surgery. Isolated fever during the night, aggressive pulmonary toileting; continue with incentive spirometer at home -refer to instructions on discharge planning . Mild hypotension, patient normally on both Norvasc and JAREK inhibitor at home. Patient advised to hold Norvasc at this time and reevaluate outpatient at follow-up visit with PCP for further recommendations. Follow with PCP in 3 days. The impression and plan of care has been dictated as directed. : I performed a H&P examination of this patient and discussed the same with the dictator. I agree with the dictator's note. Any additional findings/opinions/ etc. will be noted.
--- NOTE | 2017-07-26 14:48 | CDI ---
In responding to this query, please exercise your independent professional judgment. The [facility] Coding Staff and Clinical Documentation Specialists appreciate your assistance in clarifying documentation, maintaining compliance with coding guidelines, accurately documenting patients condition and capturing severity of illness. The fact that a question is asked does not imply that any particular answer is desired or expected. Communication forms are a method of clarifying documentation and are not made part of the Legal Health Record. Thank you in advance for your clarification. Last Revision, December 2015 [facility] [address] [facility] [place] [address] Documentation Clarification Form Date: 07/26/2017 2:44:00 PM From: Marta Main Admit Date: 07/13/2017 8:25:00 AM Patient Name: Estelle Mohr Visit Number: [id number] Discharge Date: 07/25/17 Dr. 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 Documentation states : colon polyp Treatment: Extensive laparoscopic lysis of adhesions with open right colectomy. In your professional opinion, do you agree with the pathology report specifying colon polyp as well differentiated appendiceal neuroendrine tumor (carcinoid tumor)? Yes No Other (please specify) Unable to determine Please document addendum in your discharge summary in order to capture severity of illness and risk of mortality. Include clinical findings that support your diagnosis. FYI: Press F11 to launch patient chart If you have a question about this query, please contact Elo Shane, Pneumatic Tube Fitter, [facility] at [phone] between 8am and 5pm. [place]
--- NOTE | 2017-08-22 12:30 | P.PN ---
Progress Note - Text Progress Note Date: 08/22/17 In response to the query the carcinoid was an incidental finding. The pathology report does describe colon polyps.
== END 2017-07-25 15:05 | disposition home health service (06) | DRG 330 ==
LOC: EDSTATUS 07:30 → 2ORWHC 08:25 → 3SUR 14:40
PROVIDERS: ADMIT Surgery; ATTEND Surgery
PROC: 0DTK4ZZ Resection of Ascending Colon, Percutaneous Endoscopic Approach (ICD-10-PCS; 2017-07-13)
PROC: 0DTB4ZZ Resection of Ileum, Percutaneous Endoscopic Approach (ICD-10-PCS; 2017-07-13)
PROC: 0DTJ4ZZ Resection of Appendix, Percutaneous Endoscopic Approach (ICD-10-PCS; 2017-07-13)
PROC: 0DNH4ZZ Release Cecum, Percutaneous Endoscopic Approach (ICD-10-PCS; 2017-07-13)
PROC: 0DN84ZZ Release Small Intestine, Percutaneous Endoscopic Approach (ICD-10-PCS; 2017-07-13)
PROC: 0DNN4ZZ Release Sigmoid Colon, Percutaneous Endoscopic Approach (ICD-10-PCS; 2017-07-13)
PROC: 0DNW4ZZ Release Peritoneum, Percutaneous Endoscopic Approach (ICD-10-PCS; 2017-07-13)
PROC: 0HB7XZZ Excision of Abdomen Skin, External Approach (ICD-10-PCS; 2017-07-13)
PROC: 0DTH4ZZ Resection of Cecum, Percutaneous Endoscopic Approach (ICD-10-PCS; principal; 2017-07-13 10:15)
PROC: 0DBL4ZZ Excision of Transverse Colon, Percutaneous Endoscopic Approach (ICD-10-PCS; 2017-07-13 10:15)
PROC: 0WQF0ZZ Repair Abdominal Wall, Open Approach (ICD-10-PCS; 2017-07-21)
DX: D12.2 Benign neoplasm of ascending colon (principal); T81.32XA Disruption of internal operation (surgical) wound, not elsewhere classified, initial encounter; J96.11 Chronic respiratory failure with hypoxia; C7A.029 Malignant carcinoid tumor of the large intestine, unspecified portion; Z99.81 Dependence on supplemental oxygen; J44.1 Chronic obstructive pulmonary disease with (acute) exacerbation; E87.5 Hyperkalemia; I10 Essential (primary) hypertension; D64.9 Anemia, unspecified; L72.3 Sebaceous cyst; K66.0 Peritoneal adhesions (postprocedural) (postinfection); M06.9 Rheumatoid arthritis, unspecified; F10.20 Alcohol dependence, uncomplicated; I73.9 Peripheral vascular disease, unspecified; K59.09 Other constipation; M85.80 Other specified disorders of bone density and structure, unspecified site; I83.90 Asymptomatic varicose veins of unspecified lower extremity; Z79.51 Long term (current) use of inhaled steroids; Z79.52 Long term (current) use of systemic steroids; Z79.899 Other long term (current) drug therapy; Z86.010 Personal history of colon polyps; Z85.44 Personal history of malignant neoplasm of other female genital organs; Z86.718 Personal history of other venous thrombosis and embolism; Z87.891 Personal history of nicotine dependence; Z90.710 Acquired absence of both cervix and uterus; Z96.651 Presence of right artificial knee joint; Z88.5 Allergy status to narcotic agent; Z88.8 Allergy status to other drugs, medicaments and biological substances
CPT/HCPCS: 71020; 80048; 80051; 80053; 85025; 85027; 85610; 85730; 86850; 86900; 86901; 88304; 88309; 88341; 88342; 94640; 94760

== ENCOUNTER → 2017-07-28 | Outpatient (CLI) | payer MEDICARE ==
[2017-07-28 13:01] LABS: Basophils % (A) 0 %; CH 31.9; CHCM 30.5; Eosinophils # (A) 0.1 k/uL (0-0.7); Eosinophils % (A) 1 %; HCT 29.7 % (34.0-46.0); HDW 2.54; HGB 9.2 gm/dL (11.4-16.0); Hypochromasia Moderate; Luc # (Auto) 0.09; Luc % (Auto) 1; Lymphocytes # (A) 0.9 k/uL (1.0-4.8); Lymphocytes % (A) 6 %; MCH 32.8 pg (25.0-35.0); MCV 105.7 fL (80.0-100.0); Macrocytosis Moderate; Monocytes # (A) 0.4 k/uL (0-1.0); Monocytes % (A) 3 %; Neutrophils # (A) 11.9 k/uL (1.3-7.7); Neutrophils % (A) 89 %; RBC 2.81 m/uL (3.80-5.40); WBC 13.4 k/uL (3.8-10.6); WBC (Perox) 13.78
== END | disposition home or self-care (01) ==
LOC: LABWHC1 11:51
PROVIDERS: ATTEND Hospitalist
DX: D12.2 Benign neoplasm of ascending colon (principal); D64.9 Anemia, unspecified
CPT/HCPCS: 36415; 85025

== ENCOUNTER 2017-08-15 00:47 | Inpatient (IN) | payer MEDICARE ==
[2017-08-15] MEDS ORDERED: HYDROmorphone 1 MG/ML 1 ML SYRINGE IVP STA (01:26)
[2017-08-15] MEDS ORDERED: SODIUM CHLORIDE 0.9% 1,000 ML IV STA ×2 (01:26)
[2017-08-15] MEDS ORDERED: RX INFO: IV CONTRAST WAS GIVEN 1 EACH MISC MISCELLANE PRN (01:26)
[2017-08-15] MEDS ORDERED: ONDANSETRON 4 MG/2 ML VIAL IVP STA (01:26)
[2017-08-15 01:51] LABS: ALT 27 U/L (9-52); AST 15 U/L (14-36); Alkaline Phosphatase 90 U/L (38-126); Amylase 63 U/L (30-110); Anion Gap 7 mmol/L; Blood Urea Nitrogen 15 mg/dL (7-17); Calcium 9.5 mg/dL (8.4-10.2); Carbon Dioxide 31 mmol/L (22-30); Chloride 98 mmol/L (98-107); Glucose 119 mg/dL (74-99); Non-African American GFR(MDRD) >60 (>60 ml/min/1.73 sqM); Potassium 4.3 mmol/L (3.5-5.1); Sodium 136 mmol/L (137-145); Total Bilirubin 0.4 mg/dL (0.2-1.3); Total Protein 6.3 g/dL (6.3-8.2)
[2017-08-15 01:58] LABS: Basophils % (A) 0 %; CH 32.7; CHCM 31.9; Eosinophils # (A) 0.2 k/uL (0-0.7); Eosinophils % (A) 1 %; HCT 42.5 % (34.0-46.0); HDW 2.59; Hypochromasia Slight; Luc # (Auto) 0.21; Luc % (Auto) 2; Lymphocytes # (A) 2.9 k/uL (1.0-4.8); Lymphocytes % (A) 22 %; MCH 31.9 pg (25.0-35.0); Macrocytosis Slight; Mean Platelet Volume 6.9; Monocytes # (A) 0.6 k/uL (0-1.0); Monocytes % (A) 5 %; Neutrophils # (A) 9.4 k/uL (1.3-7.7); Neutrophils % (A) 71 %; RBC 4.13 m/uL (3.80-5.40); RDW 14.6 % (11.5-15.5); WBC 13.3 k/uL (3.8-10.6)
[2017-08-15 02:01] LABS: Amorphous Sediment,Urine Rare /hpf; Appearance,Urine Clear (Clear); Bilirubin,Urine Negative (Negative); Glucose,Urine (UA) Negative (Negative); Ketones,Urine Negative (Negative); Leukocyte Esterase,Urine Trace (Negative); Mucus,Urine Rare /hpf; Nitrite,Urine Negative (Negative); PH, Urine 8.5 (5.0-8.0); Particle Count 1769; Protein,Urine Negative (Negative); RBC,Urine <1 /hpf (0-5); Squamous Epithelial Cell,Urine 2 /hpf (0-4); UA Billing (MACRO vs. MICRO) MICRO; Urobilinogen,Urine <2.0 mg/dL (<2.0); WBC,Urine 3 /hpf (0-5)
[2017-08-15 02:01] LABS: HGB 13.2 gm/dL (11.4-16.0)
--- NOTE | 2017-08-15 02:15 | ED ---
Abdominal Pain HPI - General Chief Complaint: Abdominal Pain Stated Complaint: Post Surg Complications Time Seen by Provider: 08/15/17 01:05 Source: patient, RN notes reviewed, old records reviewed Mode of arrival: ambulatory Limitations: no limitations - History of Present Illness Initial Comments: 62-year-old male with a history of bowel resection and appendectomy possibly 3 weeks ago presents emergency Department chief complaint of significant abdominal pain radiates from her upper abdomen around her back. She reports she feels nauseated. She states the pain comes and goes. Patient reports that she has had no fever or chills. She did have to have a second surgery because her initial surgery incision opened up. She does have the abdomen packed by her visiting nurse that comes every day. - Related Data Home Medications Medication Instructions Recorded Confirmed Benazepril HCl 20 mg PO QAM 01/24/16 07/13/17 Hydrocodone/Acetaminophen 1 tab PO BID PRN 01/24/16 07/13/17 [Hydrocodon-Acetaminophn 10-325] Budesonide [Pulmicort] 0.5 mg INHALATION RT-DAILY 05/31/17 07/13/17 Formoterol Fumarate [Perforomist] 1 vial INHALATION RT-DAILY 05/31/17 07/13/17 Furosemide [Lasix] 40 mg PO DAILY 05/31/17 07/13/17 Ipratropium Nebulized [Atrovent 1 vial INHALATION RT-HS 05/31/17 07/13/17 Nebulized] Montelukast [Singulair] 10 mg PO HS 05/31/17 07/13/17 Dextroamphetamine/Amphetamine 15 mg PO QAM 06/04/17 07/13/17 [Adderall Xr] Etanercept [Enbrel] 50 mg SQ [id number] PRN 07/12/17 07/13/17 Multivit-Min/FA/Lycopen/Lutein 1 tab PO DAILY 07/12/17 07/13/17 [Centrum Silver Tablet] Polyethylene Glycol 3350 [Miralax] 17 gm PO DAILY 07/12/17 07/13/17 Previous Rx's Medication Instructions Recorded predniSONE 10 mg PO DIRECTED #9 tab 07/25/17 Allergies Allergy/AdvReac Type Severity Reaction Status Date / Time infliximab [From Remicade] Allergy Dyspnea/HIV Verified 08/15/17 00:48 ES procaine [From Novocain] Allergy Unknown Verified 08/15/17 00:48 propoxyphene HCl Allergy Unknown Verified 08/15/17 00:48 [From Darvon] Review of Systems ROS Statement: Those systems with pertinent positive or pertinent negative responses have been documented in the HPI. ROS Other: All systems not noted in ROS Statement are negative. Past Medical History Past Medical History: Cancer, COPD, Hypertension, Pneumonia, Rheumatoid Arthritis (RA) Additional Past Medical History / Comment(s): HX RECTAL BLEEDING, CA VULVA, UTI, COLITIS,POLYPS(BENIGN),GOUT,OSTEOPenia ,SINUS/SEASONAL ALLERGIES, CA of appendix History of Any Multi-Drug Resistant Organisms: None Reported Past Surgical History: Hysterectomy, Joint Replacement Additional Past Surgical History / Comment(s): RT KNEE REPLACEMENT, SX TO REMOVE CANCER VULVA,EGD,COLONOSCOPY, LASIK EYE SX Past Anesthesia/Blood Transfusion Reactions: No Reported Reaction Additional Past Anesthesia/Blood Transfusion Reaction / Comment(s): CLAUSTERPHOBIA Past Psychological History: Depression Smoking Status: Former smoker Past Alcohol Use History: None Reported Past Drug Use History: None Reported - Past Family History Father Family Medical History: Cancer Additional Family Medical History / Comment(s): COLON Mother Family Medical History: Cancer Additional Family Medical History / Comment(s): ESOPHAGUS Sister(s) Family Medical History: Cancer Additional Family Medical History / Comment(s): CERVICAL General Exam - General Exam Comments Initial Comments: This is a 62-year-old male. No acute distress. Limitations: no limitations General appearance: alert, in no apparent distress Head exam: Present: atraumatic, normocephalic, normal inspection Eye exam: Present: normal appearance, PERRL, EOMI. Absent: scleral icterus, conjunctival injection, periorbital swelling ENT exam: Present: normal exam, mucous membranes moist Neck exam: Present: normal inspection. Absent: tenderness, meningismus, lymphadenopathy Respiratory exam: Present: normal lung sounds bilaterally. Absent: respiratory distress, wheezes, rales, rhonchi, stridor Cardiovascular Exam: Present: regular rate, normal rhythm, normal heart sounds. Absent: systolic murmur, diastolic murmur, rubs, gallop, clicks GI/Abdominal exam: Present: soft, normal bowel sounds, other (Significant incision over the the horizontal plane of the abdomen umbilicus. No significant drainage or erythema noted around the skin.). Absent: distended, tenderness, guarding, rebound, rigid Extremities exam: Present: normal inspection, full ROM, normal capillary refill. Absent: tenderness, pedal edema, joint swelling, calf tenderness Back exam: Present: normal inspection Neurological exam: Present: alert, oriented X3, CN II-XII intact Psychiatric exam: Present: normal affect, normal mood Skin exam: Present: warm, dry, intact, normal color. Absent: rash Course Vital Signs 08/15/17 00:50 Temperature 99.0 F Pulse Rate 76 Respiratory 18 Rate Blood Pressure 153/69 O2 Sat by Pulse 96 Oximetry Medical Decision Making - Medical Decision Making This is a 62-year-old female presents to rest at approximately of significant abdominal pain since 8 PM reading from her upper abdomen and around towards her back. Denies any urinary symptoms. She did have a significant surgical history 3 weeks ago. Patient given IV fluids, lab work obtained. CT abdomen and pelvis with contrast performed. CT abdomen and pelvis shows evidence of small bowel choking. Patient is given IV fluids, pain medication and nausea medicine. She has no active vomiting. She does report passing gas. Patient will be admitted to Dr. Mcfadden. Patient's chart was also completed on paper as she was here prior to down time, and was admitted upstairs after a downtime reopened up. - Lab Data Result diagrams: 08/15/17 01:32 08/15/17 01:32 Lab Results 08/15/17 08/15/17 08/15/17 Range/Units 01:32 01:32 01:32 WBC 13.3 H (3.8-10.6) k/uL RBC 4.13 (3.80-5.40) m/uL Hgb 13.2 D (11.4-16.0) gm/dL Hct 42.5 (34.0-46.0) % MCV 103.0 H (80.0-100.0) fL MCH 31.9 (25.0-35.0) pg MCHC 31.0 (31.0-37.0) g/dL RDW 14.6 (11.5-15.5) % Plt Count 557 H (150-450) k/uL Neutrophils % 71 % Lymphocytes % 22 % Monocytes % 5 % Eosinophils % 1 % Basophils % 0 % Neutrophils # 9.4 H (1.3-7.7) k/uL Lymphocytes # 2.9 (1.0-4.8) k/uL Monocytes # 0.6 (0-1.0) k/uL Eosinophils # 0.2 (0-0.7) k/uL Basophils # 0.0 (0-0.2) k/uL Hypochromasia Slight Macrocytosis Slight Sodium 136 L (137-145) mmol/L Potassium 4.3 (3.5-5.1) mmol/L Chloride 98 (98-107) mmol/L Carbon Dioxide 31 H (22-30) mmol/L Anion Gap 7 mmol/L BUN 15 (7-17) mg/dL Creatinine 0.70 (0.52-1.04) mg/dL Est GFR (MDRD) Af Amer >60 (>60 ml/min/1.73 sqM) Est GFR (MDRD) Non-Af >60 (>60 ml/min/1.73 sqM) Glucose 119 H (74-99) mg/dL Plasma Lactic Acid Osmani 1.9 (0.7-2.0) mmol/L Calcium 9.5 (8.4-10.2) mg/dL Total Bilirubin 0.4 (0.2-1.3) mg/dL AST 15 (14-36) U/L ALT 27 (9-52) U/L Alkaline Phosphatase 90 (38-126) U/L Total Protein 6.3 (6.3-8.2) g/dL Albumin 3.5 (3.5-5.0) g/dL Amylase 63 (30-110) U/L Lipase 52 (23-300) U/L Urine Color Urine Appearance (Clear) Urine pH (5.0-8.0) Ur Specific Mora (1.001-1.035) Urine Protein (Negative) Urine Glucose (UA) (Negative) Urine Ketones (Negative) Urine Blood (Negative) Urine Nitrite (Negative) Urine Bilirubin (Negative) Urine Urobilinogen (<2.0) mg/dL Ur Leukocyte Esterase (Negative) Urine RBC (0-5) /hpf Urine WBC (0-5) /hpf Ur Squamous Epith Cells (0-4) /hpf Amorphous Sediment (None) /hpf Urine Mucus (None) /hpf 08/15/17 Range/Units 01:50 WBC (3.8-10.6) k/uL RBC (3.80-5.40) m/uL Hgb (11.4-16.0) gm/dL Hct (34.0-46.0) % MCV (80.0-100.0) fL MCH (25.0-35.0) pg MCHC (31.0-37.0) g/dL RDW (11.5-15.5) % Plt Count (150-450) k/uL Neutrophils % % Lymphocytes % % Monocytes % % Eosinophils % % Basophils % % Neutrophils # (1.3-7.7) k/uL Lymphocytes # (1.0-4.8) k/uL Monocytes # (0-1.0) k/uL Eosinophils # (0-0.7) k/uL Basophils # (0-0.2) k/uL Hypochromasia Macrocytosis Sodium (137-145) mmol/L Potassium (3.5-5.1) mmol/L Chloride (98-107) mmol/L Carbon Dioxide (22-30) mmol/L Anion Gap mmol/L BUN (7-17) mg/dL Creatinine (0.52-1.04) mg/dL Est GFR (MDRD) Af Amer (>60 ml/min/1.73 sqM) Est GFR (MDRD) Non-Af (>60 ml/min/1.73 sqM) Glucose (74-99) mg/dL Plasma Lactic Acid Osmani (0.7-2.0) mmol/L Calcium (8.4-10.2) mg/dL Total Bilirubin (0.2-1.3) mg/dL AST (14-36) U/L ALT (9-52) U/L Alkaline Phosphatase (38-126) U/L Total Protein (6.3-8.2) g/dL Albumin (3.5-5.0) g/dL Amylase (30-110) U/L Lipase (23-300) U/L Urine Color Light Yellow Urine Appearance Clear (Clear) Urine pH 8.5 H (5.0-8.0) Ur Specific Mora 1.010 (1.001-1.035) Urine Protein Negative (Negative) Urine Glucose (UA) Negative (Negative) Urine Ketones Negative (Negative) Urine Blood Negative (Negative) Urine Nitrite Negative (Negative) Urine Bilirubin Negative (Negative) Urine Urobilinogen <2.0 (<2.0) mg/dL Ur Leukocyte Esterase Trace H (Negative) Urine RBC <1 (0-5) /hpf Urine WBC 3 (0-5) /hpf Ur Squamous Epith Cells 2 (0-4) /hpf Amorphous Sediment Rare H (None) /hpf Urine Mucus Rare H (None) /hpf - Radiology Data Radiology results: report reviewed CT abdomen and pelvis shows evidence of small bowel obstruction. Likely due to adhesions. Disposition Clinical Impression: Small bowel obstruction Disposition: ADMITTED IP TO THIS HOSP Condition: Stable Referrals: Meryl Mijares MD [Primary Care Provider] - 1-2 days Time of Disposition: 05:06
[2017-08-15] MEDS ORDERED: HYDROmorphone 1 MG/ML 1 ML SYRINGE ONE (03:46)
--- NOTE | 2017-08-15 04:44 | CT ---
INDICATION: Abdominal pain TECHNIQUE: CT acquisition is performed through the abdomen and pelvis following the administration of 100 mL Omnipaque 300 IV contrast. Sagittal and coronal reformatted images are provided. DOSE INFORMATION: CTDIvol 19.40 mGy; DLP 860.20 mGy-cm. One or more of the following dose reduction techniques were used: automated exposure control, adjustment of the mA and/or kV according to patient size, use of iterative reconstruction technique. COMPARISON: CT abdomen and pelvis, 11/13/16. FINDINGS: The lung bases are clear. The liver, gallbladder, spleen, pancreas, adrenal glands, and kidneys are unremarkable. There is aortoiliac atherosclerosis without aneurysm. There is no adenopathy. There has been interval laparotomy with postsurgical changes in the anterior abdominal wall. There has been partial right colectomy with right-sided ileocolic anastomosis. The appendix is not visualized. There are multiple dilated loops of small bowel with transition point in the anterior mid abdomen (3-55; 7-26). There is mild small bowel wall thickening near the transition point and a small amount of fluid along the decompressed small bowel loops distal to the transition point. There is no free air or portal venous gas. Uterus is surgically absent. Urinary bladder is unremarkable. There are no acute osseous findings. IMPRESSION: 1. Small bowel obstruction with transition point in the anterior mid abdomen subjacent to the laparotomy site, likely due to adhesion. 2. Interval partial right colectomy since prior exam.
[2017-08-15] MEDS ORDERED: NON-FORMULARY DRUG (Etanercept [Enbrel] 50 MG) SQ PRN (05:07)
[2017-08-15] MEDS ORDERED: FAMOTIDINE 20 MG/2 ML VIAL IV STA (05:12)
[2017-08-15] MEDS ORDERED: LORazepam 2 MG/ML INJ IV PRN (05:28)
[2017-08-15] MEDS ORDERED: NALOXONE 0.4 MG/ML 1 ML VIAL IV PRN (05:28)
[2017-08-15] MEDS ORDERED: ONDANSETRON 4 MG/2 ML VIAL IVP PRN (05:28)
[2017-08-15] MEDS: FORMOTEROL FUMARATE 20 MCG/2 ML NEBU INHALATION SCH (07:08)
[2017-08-15] MEDS: HYDROmorphone 1 MG/ML 1 ML SYRINGE IVP PRN ×6 (07:10→21:44)
[2017-08-15] MEDS ORDERED: BUDESONIDE 0.5 MG/2 ML NEBU INHALATION SCH (08:00)
[2017-08-15] MEDS ORDERED: AMPHETAMINE PO SCH (09:00)
[2017-08-15] MEDS ORDERED: DEXTROAMPHETAMINE PO SCH (09:00)
[2017-08-15] MEDS ORDERED: predniSONE 10 MG TAB PO SCH (09:00)
[2017-08-15 09:21] VITALS: BMI 28.2
[2017-08-15] MEDS: PANTOPRAZOLE 40 MG/10 ML VIAL IV SCH (09:26)
[2017-08-15] MEDS: FUROSEMIDE 40 MG TAB PO SCH (10:28)
[2017-08-15] MEDS: MULTIVITAMINS, THERA 1 EACH TAB PO SCH (10:28)
[2017-08-15] MEDS: LISINOPRIL 20 MG TAB PO SCH (10:28)
[2017-08-15] MEDS: SODIUM CHLORIDE 0.9% 1,000 ML IV SCH ×3 (10:28→23:55)
--- NOTE | 2017-08-15 12:16 | P.GSHP ---
History of Present Illness H&P Date: 08/15/17 Chief Complaint: Small bowel obstruction Patient underwent a open right colectomy on 07/13. Postoperatively the patient had developed a fascial dehiscence and required a re-closure of her abdominal wall. She has 2 horizontally placed retention sutures in place. She has been having mild discomfort at the retention suture sites. She is on antibiotics that were prescribed because of mild erythema and induration at those locations. She had been feeling fairly well up until yesterday when she began experiencing diffuse abdominal pain with mild bloating and this pain did radiate to the back. There is nausea but no vomiting. She has been having bowel movements every day 1-2 times daily. Her last bowel movement however was 2 days ago. Her appetite is somewhat diminished. Pain is better today. White blood cell count slightly elevated although she was on oral steroids at home. CAT scan was performed which shows changes suspicious for partial small bowel obstruction with a transition point in the lower anterior abdominal wall region. No hernia seen. - Review of Systems Comment: The patient denies any acute changes in vision or hearing, no dysphagia or odynophagia, no chest pain, no dysuria or hematuria, no headache, no runny nose , no rectal bleeding or melena, no unexplained weight loss Past Medical History Past Medical History: Cancer, COPD, Hypertension, Pneumonia, Rheumatoid Arthritis (RA) Additional Past Medical History / Comment(s): HX RECTAL BLEEDING, CA VULVA, UTI, COLITIS,POLYPS(BENIGN),GOUT,OSTEOPenia ,SINUS/SEASONAL ALLERGIES, CA of appendix History of Any Multi-Drug Resistant Organisms: None Reported Past Surgical History: Hysterectomy, Joint Replacement Additional Past Surgical History / Comment(s): RT KNEE REPLACEMENT, SX TO REMOVE CANCER VULVA,EGD,COLONOSCOPY, LASIK EYE SX Past Anesthesia/Blood Transfusion Reactions: No Reported Reaction Additional Past Anesthesia/Blood Transfusion Reaction / Comment(s): CLAUSTERPHOBIA Past Psychological History: Depression Additional Psychological History / Comment(s): PT STATED OCC MILD DEPRESSION NO THOUGHTS OF HARMING SELF Smoking Status: Former smoker Past Alcohol Use History: None Reported Additional Past Alcohol Use History / Comment(s): STATES QUIT SMOKING IN 1999, SMOKED 2 PPD SINCE AGE 12, STATES DRINKS 2-3 DRINKS A NIGHT(VODKA MIXED WITH BA AID Past Drug Use History: None Reported Additional Drug Use History / Comment(s): PAST OCC MARIJUANA- QUIT - Past Family History Father Family Medical History: Cancer Additional Family Medical History / Comment(s): COLON Mother Family Medical History: Cancer Additional Family Medical History / Comment(s): ESOPHAGUS Sister(s) Family Medical History: Cancer Additional Family Medical History / Comment(s): CERVICAL Medications and Allergies Home Medications Medication Instructions Recorded Confirmed Type Benazepril HCl 20 mg PO QAM 01/24/16 08/15/17 History Hydrocodone/Acetaminophen 1 tab PO Q4H PRN 01/24/16 08/15/17 History [Hydrocodon-Acetaminophn 10-325] Budesonide [Pulmicort] 0.5 mg INHALATION RT-DAILY 05/31/17 08/15/17 History Formoterol Fumarate [Perforomist] 20 mcg INHALATION RT-DAILY 05/31/17 08/15/17 History Furosemide [Lasix] 40 mg PO DAILY 05/31/17 08/15/17 History Ipratropium Nebulized [Atrovent 0.5 mg INHALATION RT-HS 05/31/17 08/15/17 History Nebulized] Montelukast [Singulair] 10 mg PO HS 05/31/17 08/15/17 History Etanercept [Enbrel] 50 mg SQ [id number] PRN 07/12/17 08/15/17 History Multivit-Min/FA/Lycopen/Lutein 1 tab PO DAILY 07/12/17 08/15/17 History [Centrum Silver Tablet] Polyethylene Glycol 3350 [Miralax] 17 gm PO DAILY PRN 07/12/17 08/15/17 History Dextroamphetamine/Amphetamine 20 mg PO DAILY 08/15/17 08/15/17 History [Dextroamp-Amphetamin 20 mg Tab] Nicotine [Nicotrol] 10 mg INHALATION Q4H PRN 08/15/17 08/15/17 History amLODIPine [Norvasc] 5 mg PO DAILY 08/15/17 08/15/17 History Allergies Allergy/AdvReac Type Severity Reaction Status Date / Time infliximab [From Remicade] Allergy Dyspnea/HIV Verified 08/15/17 00:48 ES procaine [From Novocain] Allergy Unknown Verified 08/15/17 00:48 propoxyphene HCl Allergy Unknown Verified 08/15/17 00:48 [From Darvon] Surgical - Exam Vital Signs Temp Pulse Resp BP Pulse Ox 99.0 F 76 18 153/69 96 08/15/17 00:50 08/15/17 00:50 08/15/17 00:50 08/15/17 00:50 08/15/17 00:50 Physical exam: General: Well-developed, well-nourished HEENT: Normocephalic, sclerae nonicteric Abdomen: Mild diffuse tenderness, mild distention, midline wounds almost healed , retention sutures intact with mild erythema Extremities: No edema Neuro: Alert and oriented Results - Labs 08/15/17 01:32 08/15/17 01:32 Abnormal Lab Results - Last 24 Hours (Table) 08/15/17 08/15/17 08/15/17 Range/Units 01:32 01:32 01:50 WBC 13.3 H (3.8-10.6) k/uL MCV 103.0 H (80.0-100.0) fL Plt Count 557 H (150-450) k/uL Neutrophils # 9.4 H (1.3-7.7) k/uL Sodium 136 L (137-145) mmol/L Carbon Dioxide 31 H (22-30) mmol/L Glucose 119 H (74-99) mg/dL Urine pH 8.5 H (5.0-8.0) Ur Leukocyte Esterase Trace H (Negative) Amorphous Sediment Rare H (None) /hpf Urine Mucus Rare H (None) /hpf Diabetes panel 08/15/17 Range/Units 01:32 Sodium 136 L (137-145) mmol/L Potassium 4.3 (3.5-5.1) mmol/L Chloride 98 (98-107) mmol/L Carbon Dioxide 31 H (22-30) mmol/L BUN 15 (7-17) mg/dL Creatinine 0.70 (0.52-1.04) mg/dL Glucose 119 H (74-99) mg/dL Calcium 9.5 (8.4-10.2) mg/dL AST 15 (14-36) U/L ALT 27 (9-52) U/L Alkaline Phosphatase 90 (38-126) U/L Total Protein 6.3 (6.3-8.2) g/dL Albumin 3.5 (3.5-5.0) g/dL Calcium panel 08/15/17 Range/Units 01:32 Calcium 9.5 (8.4-10.2) mg/dL Albumin 3.5 (3.5-5.0) g/dL Pituitary panel 08/15/17 Range/Units 01:32 Sodium 136 L (137-145) mmol/L Potassium 4.3 (3.5-5.1) mmol/L Chloride 98 (98-107) mmol/L Carbon Dioxide 31 H (22-30) mmol/L BUN 15 (7-17) mg/dL Creatinine 0.70 (0.52-1.04) mg/dL Glucose 119 H (74-99) mg/dL Calcium 9.5 (8.4-10.2) mg/dL Adrenal panel 08/15/17 Range/Units 01:32 Sodium 136 L (137-145) mmol/L Potassium 4.3 (3.5-5.1) mmol/L Chloride 98 (98-107) mmol/L Carbon Dioxide 31 H (22-30) mmol/L BUN 15 (7-17) mg/dL Creatinine 0.70 (0.52-1.04) mg/dL Glucose 119 H (74-99) mg/dL Calcium 9.5 (8.4-10.2) mg/dL Total Bilirubin 0.4 (0.2-1.3) mg/dL AST 15 (14-36) U/L ALT 27 (9-52) U/L Alkaline Phosphatase 90 (38-126) U/L Total Protein 6.3 (6.3-8.2) g/dL Albumin 3.5 (3.5-5.0) g/dL Assessment and Plan (1) Small bowel obstruction Narrative/Plan: CAT scan films were reviewed. The changes do seem suspicious for partial small bowel obstruction. Likely related to inflammatory changes at the anterior abdominal wall closure. No hernia is seen. We'll treat this conservatively. Patient will remain nothing by mouth. If she develops episodes of vomiting will have a nasogastric tube placed. Recheck abdominal x-rays tomorrow. Consult both pulmonary and the hospitalist service. Continue local wound care. Empirically resume antibiotics for mild erythema at the retention suture sites. Current Visit: Yes Status: Acute Code(s): K56.609 - SNOMED Code(s): 321099917
--- NOTE | 2017-08-15 14:35 | P.CNPUL ---
History of Present Illness Consult date: 08/15/17 Requesting physician: Brenden Burger Reason for consult: dyspnea Chief complaint: Abdominal pain, shortness of breath History of present illness: This is a very pleasant 62-year-old female patient who follows with Dr. Mijares as her primary care physician. She has a history of rheumatoid arthritis, hypertension. She also has a history of severe Gold stage IV chronic obstructive pulmonary disease. Her FEV1 value was 27% of predicted. She had recently undergone a right colectomy for precancerous colonic polyp. Following surgery she had developed abdominal wound dehiscence and had prolonged hospitalization. She was subsequently discharged. She had been seen in follow- up by Dr. Goodman on 08/01/2017. At that time she was doing quite well. She still had open wound which was being packed daily. She has has retention sutures still in place. She had recently been treated for COPD exacerbation as well. She presented here yesterday to the emergency room with complaints of recurrent abdominal pain. A computed tomography scan of the abdomen did reveal a small bowel obstruction with transition point in the anterior mid abdomen adjacent to the laparotomy site, likely due to adhesion. She has been seen and evaluated by Dr. Burger. He does feel there is some inflammatory changes at the anterior abdominal wall closure. She is currently nothing by mouth. Conservative treatment has been initiated. Her consulted for her ongoing issues with COPD exacerbation she was on a prednisone taper on her second day of 40 mg. Her white count is 13.3. Hemoglobin 13.2. CO2 level 31. She is maintaining good O2 saturations in the upper 90s on room air. She is afebrile. Hemodynamically stable. She has been initiated on Zosyn. Review of Systems 14 point review of system was conducted. All negative other than as mentioned in HPI. Past Medical History Past Medical History: Cancer, COPD, Hypertension, Pneumonia, Rheumatoid Arthritis (RA) Additional Past Medical History / Comment(s): HX RECTAL BLEEDING, CA VULVA, UTI, COLITIS,POLYPS(BENIGN),GOUT,OSTEOPenia ,SINUS/SEASONAL ALLERGIES, CA of appendix History of Any Multi-Drug Resistant Organisms: None Reported Past Surgical History: Hysterectomy, Joint Replacement Additional Past Surgical History / Comment(s): RT KNEE REPLACEMENT, SX TO REMOVE CANCER VULVA,EGD,COLONOSCOPY, LASIK EYE SX Past Anesthesia/Blood Transfusion Reactions: No Reported Reaction Additional Past Anesthesia/Blood Transfusion Reaction / Comment(s): CLAUSTERPHOBIA Past Psychological History: Depression Additional Psychological History / Comment(s): PT STATED OCC MILD DEPRESSION NO THOUGHTS OF HARMING SELF Smoking Status: Former smoker Past Alcohol Use History: None Reported Additional Past Alcohol Use History / Comment(s): STATES QUIT SMOKING IN 1999, SMOKED 2 PPD SINCE AGE 12, STATES DRINKS 2-3 DRINKS A NIGHT(VODKA MIXED WITH BA AID Past Drug Use History: None Reported Additional Drug Use History / Comment(s): PAST OCC MARIJUANA- QUIT - Past Family History Father Family Medical History: Cancer Additional Family Medical History / Comment(s): COLON Mother Family Medical History: Cancer Additional Family Medical History / Comment(s): ESOPHAGUS Sister(s) Family Medical History: Cancer Additional Family Medical History / Comment(s): CERVICAL Medications and Allergies Home Medications Medication Instructions Recorded Confirmed Type Benazepril HCl 20 mg PO QAM 01/24/16 08/15/17 History Hydrocodone/Acetaminophen 1 tab PO Q4H PRN 01/24/16 08/15/17 History [Hydrocodon-Acetaminophn 10-325] Budesonide [Pulmicort] 0.5 mg INHALATION RT-DAILY 05/31/17 08/15/17 History Formoterol Fumarate [Perforomist] 20 mcg INHALATION RT-DAILY 05/31/17 08/15/17 History Furosemide [Lasix] 40 mg PO DAILY 05/31/17 08/15/17 History Ipratropium Nebulized [Atrovent 0.5 mg INHALATION RT-HS 05/31/17 08/15/17 History Nebulized] Montelukast [Singulair] 10 mg PO HS 05/31/17 08/15/17 History Etanercept [Enbrel] 50 mg SQ [id number] PRN 07/12/17 08/15/17 History Multivit-Min/FA/Lycopen/Lutein 1 tab PO DAILY 07/12/17 08/15/17 History [Centrum Silver Tablet] Polyethylene Glycol 3350 [Miralax] 17 gm PO DAILY PRN 07/12/17 08/15/17 History Dextroamphetamine/Amphetamine 20 mg PO DAILY 08/15/17 08/15/17 History [Dextroamp-Amphetamin 20 mg Tab] Nicotine [Nicotrol] 10 mg INHALATION Q4H PRN 08/15/17 08/15/17 History amLODIPine [Norvasc] 5 mg PO DAILY 08/15/17 08/15/17 History Allergies Allergy/AdvReac Type Severity Reaction Status Date / Time infliximab [From Remicade] Allergy Dyspnea/HIV Verified 08/15/17 00:48 ES procaine [From Novocain] Allergy Unknown Verified 08/15/17 00:48 propoxyphene HCl Allergy Unknown Verified 08/15/17 00:48 [From Darvon] Physical Exam Vitals: Vital Signs Temp Pulse Pulse Resp BP BP Pulse Ox 08/15/17 10:19 97.2 F L 79 18 139/65 98 08/15/17 08:56 79 18 08/15/17 07:25 88 08/15/17 07:18 84 08/15/17 07:17 84 08/15/17 07:10 80 08/15/17 07:00 98.2 F 83 17 113/63 92 L 08/15/17 05:21 98.3 F 80 18 122/71 98 08/15/17 00:50 99.0 F 76 18 153/69 96 Intake and Output 08/14/17 08/15/17 08/15/17 22:59 06:59 14:59 Other: Voiding Method Toilet # Voids 3 Weight 66.224 kg 70 kg Patient Weight 08/16/17 06:59 Weight 70 kg GENERAL EXAM: Obese. Features of cushingoid. Alert, fairly comfortable in no apparent distress. HEAD: Normocephalic. EYES: Normal reaction of pupils, equal size. NOSE: Clear with pink turbinates. THROAT: No erythema or exudates. NECK: No masses, no JVD. CHEST: No chest wall deformity. LUNGS: Equal air entry with faint end expiratory wheeze bilaterally. Diminished. CVS: S1 and S2 normal with no audible murmur, regular rhythm. ABDOMEN: Slightly distended. Retention sutures in place. Midline wound with packing. Hypoactive bowel sounds, no guarding or rigidity. SPINE: Kyphoscoliosis SKIN: No rashes, slight erythema at surgical site. CENTRAL NERVOUS SYSTEM: No focal deficits, tone is normal in all 4 extremities. EXTREMITIES: There is no peripheral edema. No clubbing, no cyanosis. Peripheral pulses are intact. Results - Laboratory Findings CBC and BMP: 08/15/17 01:32 08/15/17 01:32 Abnormal lab findings: Abnormal Labs 08/15/17 08/15/17 08/15/17 01:32 01:32 01:50 WBC 13.3 H MCV 103.0 H Plt Count 557 H Neutrophils # 9.4 H Sodium 136 L Carbon Dioxide 31 H Glucose 119 H Urine pH 8.5 H Ur Leukocyte Esterase Trace H Amorphous Sediment Rare H Urine Mucus Rare H Assessment and Plan Assessment: Impression: #1 Abdominal pain secondary to small bowel obstruction with transition point in the anterior mid abdomen adjacent sent to the laparotomy site likely due to inflammation/adhesion. #2 Right colon lesion, suprapubic sebaceous cyst with open right colectomy with excision of the suprapubic sebaceous cyst and lysis of adhesions on 07/13/2017. #3 Wound dehiscence with subsequent repair of the fascial dehiscence on 2016. Retention sutures and open wound with packing continue. #4 Acute exacerbation of severe Gold stage IV chronic obstructive pulmonary disease with an FEV1 value of 27% of predicted. #5 Rheumatoid arthritis. #6 Essential hypertension. Plan: The patient was seen and evaluated by Dr. Ibrahim. She is currently stable from the pulmonary standpoint. We'll continue with her pulmonary medications including DuoNeb inhalations 4 times a day and when necessary, Perforomist and Pulmicort inhalations twice a day, Singulair and IV Solu-Medrol. Continue Zosyn. She is on heparin for DVT prophylaxis. Protonix for GI prophylaxis. We will increase her activity as tolerated. The plan is for conservative treatment of her small bowel obstruction. She'll remain nothing by mouth for now. We will continue to follow and make further recommendations based on her clinical status. I, the cosigning physician, had performed a history and physical examination on this patient. Lung sounds have bilateral end expiratory wheeze. Diminished throughout. I have discussed the assessment and plan of care with my nurse practitioner, Symone Ohara. I attest the note as dictated above by her. Time with Patient: Greater than 30
[2017-08-15] MEDS: ONDANSETRON 4 MG/2 ML VIAL IVP PRN ×2 (14:51→21:44)
[2017-08-15] MEDS: IPRATROPIUM-ALBUTEROL 3 ML NEB INHALATION SCH ×2 (15:34→19:59)
[2017-08-15] MEDS: PIPERACILLIN-TAZOBACTAM 3.375 GM in DEXTROSE/WATER 1 50ML.BAG IVPB SCH ×2 (16:51→23:55)
[2017-08-15] MEDS: methylPREDNISolone SOD SUCCI 40 MG/ML 1 ML VIAL IV SCH (16:51)
[2017-08-15] MEDS: HEPARIN SODIUM,PORCINE 5,000 UNIT/ML 1 ML VIAL SQ SCH ×2 (16:52→23:56)
[2017-08-15] MEDS ORDERED: IPRATROPIUM 0.5 MG/2.5 ML NEBU INHALATION SCH (20:00)
[2017-08-15] MEDS: MONTELUKAST 10 MG TAB PO SCH (20:26)
--- NOTE | 2017-08-15 22:55 | P.CONS ---
History of Present Illness - Reason for Consult Consult date: 08/15/17 Medical management of multiple medical problems including hypertension COPD - Chief Complaint Abdominal pain - History of Present Illness Patient is a 62-year-old female with a known history of rheumatoid arthritis and advanced COPD with recent history of partial colectomy due to colon polyp came to the hospital complains of abdominal pain cramping started yesterday evening. Patient denied any fever or chills. No blood in the stool. Patient also nauseated area or so vomiting. Patient recently had a complicated hospital course after partial colectomy. Patient had wound lesions and was taken back to or for repeat and was also treated for COPD at the time patient was subsequently discharged with much improvement and has been doing well until last evening. Patient had CT of the abdominal pelvis done in the ER showed sinus of partial small bowel obstruction. Patient was seen by Dr. Stewart and currently patient is being managed conservatively with IV fluids and nothing by mouth. Does have multiple medical problems and comorbid conditions. Denied any chest pain or short of breath. Review of Systems Constitutional: Patient denies any fever or chills . No generalized weakness or weight loss. Abdomen: Does have nausea. No vomiting. Abdominal pain mainly right lower abdominal. Cardiovascular: Patient denies any chest pain or short of breath no palpitations. Respiratory: Patient does have shortness of breath and wheezing Neurologic: Patient denied any numbness or tingling headache. Musculoskeletal: Patient denies any complaints of joint swelling or deformity. Skin: Negative Psychiatric: Negative Endocrine: No heat or cold intolerance. No recent weight gain. Genitourinary: No dysuria or hematuria. All other 14 point ROS negative except the above Past Medical History Past Medical History: Cancer, COPD, Hypertension, Pneumonia, Rheumatoid Arthritis (RA) Additional Past Medical History / Comment(s): HX RECTAL BLEEDING, CA VULVA, UTI, COLITIS,POLYPS(BENIGN),GOUT,OSTEOPenia ,SINUS/SEASONAL ALLERGIES, CA of appendix History of Any Multi-Drug Resistant Organisms: None Reported Past Surgical History: Hysterectomy, Joint Replacement Additional Past Surgical History / Comment(s): RT KNEE REPLACEMENT, SX TO REMOVE CANCER VULVA,EGD,COLONOSCOPY, LASIK EYE SX Past Anesthesia/Blood Transfusion Reactions: No Reported Reaction Additional Past Anesthesia/Blood Transfusion Reaction / Comm: CLAUSTERPHOBIA Past Psychological History: Depression Additional Psychological History / Comment(s): PT STATED OCC MILD DEPRESSION NO THOUGHTS OF HARMING SELF Smoking Status: Former smoker Past Alcohol Use History: None Reported Additional Past Alcohol Use History / Comment(s): [facility] QUIT SMOKING IN 1999, SMOKED 2 PPD SINCE AGE 12, STATES DRINKS 2-3 DRINKS A NIGHT(VODKA MIXED WITH BA AID Past Drug Use History: None Reported Additional Drug Use History / Comment(s): PAST OCC MARIJUANA- QUIT - Past Family History Father Family Medical History: Cancer Additional Family Medical History / Comment(s): COLON Mother Family Medical History: Cancer Additional Family Medical History / Comment(s): ESOPHAGUS Sister(s) Family Medical History: Cancer Additional Family Medical History / Comment(s): CERVICAL Medications and Allergies Home Medications Medication Instructions Recorded Confirmed Type Benazepril HCl 20 mg PO QAM 01/24/16 08/15/17 History Hydrocodone/Acetaminophen 1 tab PO Q4H PRN 01/24/16 08/15/17 History [Hydrocodon-Acetaminophn 10-325] Budesonide [Pulmicort] 0.5 mg INHALATION RT-DAILY 05/31/17 08/15/17 History Formoterol Fumarate [Perforomist] 20 mcg INHALATION RT-DAILY 05/31/17 08/15/17 History Furosemide [Lasix] 40 mg PO DAILY 05/31/17 08/15/17 History Ipratropium Nebulized [Atrovent 0.5 mg INHALATION RT-HS 05/31/17 08/15/17 History Nebulized] Montelukast [Singulair] 10 mg PO HS 05/31/17 08/15/17 History Etanercept [Enbrel] 50 mg SQ [id number] PRN 07/12/17 08/15/17 History Multivit-Min/FA/Lycopen/Lutein 1 tab PO DAILY 07/12/17 08/15/17 History [Centrum Silver Tablet] Polyethylene Glycol 3350 [Miralax] 17 gm PO DAILY PRN 07/12/17 08/15/17 History Dextroamphetamine/Amphetamine 20 mg PO DAILY 08/15/17 08/15/17 History [Dextroamp-Amphetamin 20 mg Tab] Nicotine [Nicotrol] 10 mg INHALATION Q4H PRN 08/15/17 08/15/17 History amLODIPine [Norvasc] 5 mg PO DAILY 08/15/17 08/15/17 History Allergies Allergy/AdvReac Type Severity Reaction Status Date / Time infliximab [From Remicade] Allergy Dyspnea/HIV Verified 08/15/17 00:48 ES procaine [From Novocain] Allergy Unknown Verified 08/15/17 00:48 propoxyphene HCl Allergy Unknown Verified 08/15/17 00:48 [From Darvon] Physical Exam Vitals: Vital Signs Temp Pulse Pulse Resp BP BP Pulse Ox 08/15/17 10:19 97.2 F L 79 18 139/65 98 08/15/17 08:56 79 18 08/15/17 07:25 88 08/15/17 07:18 84 08/15/17 07:17 84 08/15/17 07:10 80 08/15/17 07:00 98.2 F 83 17 113/63 92 L 08/15/17 05:21 98.3 F 80 18 122/71 98 08/15/17 00:50 99.0 F 76 18 153/69 96 Intake and Output 08/14/17 08/15/17 08/15/17 22:59 06:59 14:59 Other: Voiding Method Toilet Weight 66.224 kg 70 kg Patient Weight 08/16/17 06:59 Weight 70 kg PHYSICAL EXAMINATION: Patient is lying in the bed comfortably, no acute distress, awake alert and oriented.. HEENT: Normocephalic. Neck is supple. Pupils reactive. Nostrils clear. Oral cavity is moist. Ears reveal no drainage. Neck reveals no JVD, carotid bruits, or thyromegaly. CHEST EXAMINATION: Trachea is central. Symmetrical expansion. Bilateral diffuse wheezing. No crackles noted CARDIAC: Normal S1, S2 with no gallops. No murmurs ABDOMEN: Soft. Bowel sounds normal. No organomegaly. No abdominal bruits. wound healed well from recent surgery Extremities: reveal no edema. No clubbing or cyanosis Neurologically awake, alert, oriented x3 with well-coordinated movements. No focal deficits noted Skin: No rash or skin lesions. Psychiatric: Operative. Nonsuicidal Musculoskeletal: No joint swelling or deformity. Normal range of motion. Results CBC & Chem 7: 08/15/17 01:32 08/15/17 01:32 Labs: Abnormal Lab Results - Last 24 Hours (Table) 08/15/17 08/15/17 08/15/17 Range/Units 01:32 01:32 01:50 WBC 13.3 H (3.8-10.6) k/uL MCV 103.0 H (80.0-100.0) fL Plt Count 557 H (150-450) k/uL Neutrophils # 9.4 H (1.3-7.7) k/uL Sodium 136 L (137-145) mmol/L Carbon Dioxide 31 H (22-30) mmol/L Glucose 119 H (74-99) mg/dL Urine pH 8.5 H (5.0-8.0) Ur Leukocyte Esterase Trace H (Negative) Amorphous Sediment Rare H (None) /hpf Urine Mucus Rare H (None) /hpf Assessment and Plan Assessment: #1 abdominal pain secondary to small bowel obstruction at the recent surgical site. Possible adhesion/inflammation #2 right colon lesion status post partial colectomy about a month back and followed by wound dehiscence and repair #3 acute COPD exacerbation gold stage IV criteria #4 rheumatoid arthritis #5 hypertension #6 DVT prophylaxis Plan: Patient will be continued on conservative management with IV fluids pain medications and nothing by mouth. General surgery is on board. Laparotomy if the conservative management doesn't improve. Encouraged ambulation and IV hydration. For COPD exacerbation patient be continued on dual nebs and Pulmicort along with IV steroids. Pulmonary was consulted as well. We'll continue to follow closely and further recommendations based on the clinical course. Time with Patient: Greater than 30
[2017-08-16] MEDS: HYDROmorphone 1 MG/ML 1 ML SYRINGE IVP PRN ×7 (01:57→23:44)
[2017-08-16] MEDS: IPRATROPIUM-ALBUTEROL 3 ML NEB INHALATION PRN (02:13)
[2017-08-16] MEDS: ONDANSETRON 4 MG/2 ML VIAL IVP PRN ×2 (05:28→19:07)
[2017-08-16 06:54] LABS: Basophils % (A) 0 %; CH 32.3; CHCM 31.3; Eosinophils % (A) 0 %; HCT 35.7 % (34.0-46.0); HDW 2.54; HGB 10.9 gm/dL (11.4-16.0); Hypochromasia Slight; Luc # (Auto) 0.05; Luc % (Auto) 1; Lymphocytes # (A) 1.3 k/uL (1.0-4.8); Lymphocytes % (A) 12 %; MCH 31.9 pg (25.0-35.0); MCHC 30.7 g/dL (31.0-37.0); MCV 103.7 fL (80.0-100.0); Macrocytosis Slight; Mean Platelet Volume 7.6; Monocytes # (A) 0.4 k/uL (0-1.0); Monocytes % (A) 4 %; Neutrophils # (A) 8.5 k/uL (1.3-7.7); Neutrophils % (A) 83 %; RBC 3.44 m/uL (3.80-5.40); RDW 14.3 % (11.5-15.5); WBC 10.2 k/uL (3.8-10.6); WBC (Perox) 10.58
[2017-08-16 07:33] LABS: Anion Gap 5 mmol/L; Blood Urea Nitrogen 8 mg/dL (7-17); Calcium 8.7 mg/dL (8.4-10.2); Carbon Dioxide 28 mmol/L (22-30); Chloride 103 mmol/L (98-107); Glucose 108 mg/dL (74-99); Non-African American GFR(MDRD) >60 (>60 ml/min/1.73 sqM); Potassium 4.9 mmol/L (3.5-5.1); Sodium 136 mmol/L (137-145)
[2017-08-16] MEDS: IPRATROPIUM-ALBUTEROL 3 ML NEB INHALATION SCH ×4 (07:39→20:21)
[2017-08-16] MEDS: BUDESONIDE 1 MG/2 ML NEBU INHALATION SCH (07:39)
[2017-08-16] MEDS: FORMOTEROL FUMARATE 20 MCG/2 ML NEBU INHALATION SCH (07:39)
[2017-08-16] MEDS: PANTOPRAZOLE 40 MG/10 ML VIAL IV SCH (08:28)
[2017-08-16] MEDS: methylPREDNISolone SOD SUCCI 40 MG/ML 1 ML VIAL IV SCH (08:28)
[2017-08-16] MEDS: HEPARIN SODIUM,PORCINE 5,000 UNIT/ML 1 ML VIAL SQ SCH ×3 (08:28→23:44)
[2017-08-16] MEDS: LISINOPRIL 20 MG TAB PO SCH (08:29)
[2017-08-16] MEDS: MULTIVITAMINS, THERA 1 EACH TAB PO SCH (08:29)
--- NOTE | 2017-08-16 08:30 | XR ---
EXAMINATION TYPE: XR abdomen 2V DATE OF EXAM: 08/16/2017 CLINICAL DATA: 62 year-old female follow-up bowel obstruction, recent partial colectomy, [facility] COMPARISON: CT 08/15/2017 FINDINGS: Lung bases are clear. Supine imaging limited for assessment of free intraperitoneal air. Relative paucity of bowel gas. There is a solitary mildly dilated small bowel loop in the left upper quadrant measuring 3.6 cm. This demonstrates an air-fluid level. On prior exam, bowel loops in the mi d to lower abdomen measuring up to 3.6 cm as well. Staple lines within the right mid abdomen from ileocolonic anastomosis. Mild to moderate stool burden . Device overlying the patient's lower abdomen. IMPRESSION: The relative paucity of bowel gas limits assessment. There is a solitary dilated small bowel loop in the left upper quadrant (3.6 cm) with air-fluid level suggesting continued obstructive changes. This degree of dilatation is similar to that seen on the 08/15/2017 CT. Other bowel loops are probably flu id-filled
--- NOTE | 2017-08-16 09:02 | P.PN ---
Subjective Progress Note Date: 08/16/17 Principal diagnosis: Small bowel obstruction likely due to inflammation/adhesions, acute exacerbation of COPD This is a very pleasant 62-year-old female patient who follows with Dr. Mijares as her primary care physician. She has a history of rheumatoid arthritis, hypertension. She also has a history of severe Gold stage IV chronic obstructive pulmonary disease. Her FEV1 value was 27% of predicted. She had recently undergone a right colectomy for precancerous colonic polyp. Following surgery she had developed abdominal wound dehiscence and had prolonged hospitalization. She was subsequently discharged. She had been seen in follow- up by Dr. Goodman on 08/01/2017. At that time she was doing quite well. She still had open wound which was being packed daily. She has has retention sutures still in place. She had recently been treated for COPD exacerbation as well. She presented here yesterday to the emergency room with complaints of recurrent abdominal pain. A computed tomography scan of the abdomen did reveal a small bowel obstruction with transition point in the anterior mid abdomen adjacent to the laparotomy site, likely due to adhesion. She has been seen and evaluated by Dr. Burger. He does feel there is some inflammatory changes at the anterior abdominal wall closure. She is currently nothing by mouth. Conservative treatment has been initiated. Her consulted for her ongoing issues with COPD exacerbation she was on a prednisone taper on her second day of 40 mg. Her white count is 13.3. Hemoglobin 13.2. CO2 level 31. She is maintaining good O2 saturations in the upper 90s on room air. She is afebrile. Hemodynamically stable. She has been initiated on Zosyn. On 08/16/2017 patient is seen in follow-up. She continues with moderate abdominal cramping worse across the lower abdomen. She denies nausea, vomiting. She is strict nothing by mouth right now. Follow-up abdominal x-ray from 08/16/2017 shows solitary dilated small bowel loop with air fluid level suggesting continued obstructive changes. This is unchanged from the previous exam on 08/15/2017. General surgery is following. From pulmonary standpoint and is doing well. Faint few expiratory wheezes auscultated on forced exhale maneuver, no evidence of chest congestion. She is on 2 L oxygen per nasal cannula with O2 sat at 95-96. No Febrile episodes. Continue with Zosyn for empiric antibiotic coverage, With IV steroids and nebulizer treatments. Objective - Vital Signs Vital signs: Vital Signs Temp 97.0 F L 08/16/17 07:00 Pulse 88 08/16/17 08:02 Resp 15 08/16/17 07:00 BP 127/59 08/16/17 07:00 Pulse Ox 96 08/16/17 07:00 Intake & Output 08/15/17 08/16/17 08/16/17 18:59 06:59 18:59 Intake Total 50 Balance 50 Weight 70 kg Intake: Intake, IV Titration 50 Amount Piperacillin-Tazobactam 3 50 .375 gm In Dextrose/Water 1 50ml.bag @ 12.5 mls/hr IVPB Q8HR [facility] Rx#: [id number] Other: Voiding Method Toilet # Voids 3 1 - Exam GENERAL EXAM: Obese. Features of cushingoid. Alert, fairly comfortable in no apparent distress. HEAD: Normocephalic. EYES: Normal reaction of pupils, equal size. NOSE: Clear with pink turbinates. THROAT: No erythema or exudates. NECK: No masses, no JVD. CHEST: No chest wall deformity. LUNGS: Equal air entry with faint end expiratory wheeze bilaterally. Diminished. CVS: S1 and S2 normal with no audible murmur, regular rhythm. ABDOMEN: Slightly distended. Retention sutures in place. Midline wound with packing. Hypoactive bowel sounds, no guarding or rigidity. SPINE: Kyphoscoliosis SKIN: No rashes, slight erythema at surgical site. CENTRAL NERVOUS SYSTEM: No focal deficits, tone is normal in all 4 extremities. EXTREMITIES: There is no peripheral edema. No clubbing, no cyanosis. Peripheral pulses are intact. - Labs CBC & Chem 7: 08/16/17 06:38 08/16/17 06:38 Labs: Abnormal Lab Results - Last 24 Hours (Table) 08/16/17 08/16/17 Range/Units 06:38 06:38 RBC 3.44 L (3.80-5.40) m/uL Hgb 10.9 L (11.4-16.0) gm/dL MCV 103.7 H (80.0-100.0) fL MCHC 30.7 L (31.0-37.0) g/dL Neutrophils # 8.5 H (1.3-7.7) k/uL Sodium 136 L (137-145) mmol/L Glucose 108 H (74-99) mg/dL Microbiology - Last 24 Hours (Table) 08/15/17 01:32 Blood Culture - Preliminary Blood No Growth after 24 hours Assessment and Plan Plan: Impression: #1 Abdominal pain secondary to small bowel obstruction with transition point in the anterior mid abdomen adjacent sent to the laparotomy site likely due to inflammation/adhesion. Follow-up abdominal x-ray from 08/16/2017 continues with evidence of small bowel obstruction unchanged from previous exam on 2016. #2 Right colon lesion, suprapubic sebaceous cyst with open right colectomy with excision of the suprapubic sebaceous cyst and lysis of adhesions on 07/13/2017. #3 Wound dehiscence with subsequent repair of the fascial dehiscence on 2016. Retention sutures and open wound with packing continue. #4 Acute exacerbation of severe Gold stage IV chronic obstructive pulmonary disease with an FEV1 value of 27% of predicted. #5 Rheumatoid arthritis. #6 Essential hypertension. Plan: The patient was seen and evaluated by Dr. Ibrahim. She is currently stable from the pulmonary standpoint. We'll continue with her pulmonary medications including DuoNeb inhalations 4 times a day and when necessary, Perforomist and Pulmicort inhalations twice a day, Singulair and IV Solu-Medrol. Continue Zosyn. She is on heparin for DVT prophylaxis. Protonix for GI prophylaxis. We will increase her activity as tolerated. The plan is for conservative treatment of her small bowel obstruction. She'll remain nothing by mouth for now. We will continue to follow and make further recommendations based on her clinical status. I performed a history & physical examination of the patient and discussed their management with my nurse practitioner, Savanah Mart. I reviewed the nurse practitioner's note and agree with the documented findings and plan of care. Lung sounds equal air entry bilaterally with faint end expiratory wheezing on forced exhale maneuver. I attest to the documentation by the nurse practitioner
[2017-08-16] MEDS: FUROSEMIDE 40 MG TAB PO SCH (10:07)
[2017-08-16] MEDS: PIPERACILLIN-TAZOBACTAM 3.375 GM in DEXTROSE/WATER 1 50ML.BAG IVPB SCH ×3 (10:07→23:44)
--- NOTE | 2017-08-16 14:11 | P.PN ---
<Tamie Ramirezne M - Last Filed: 08/16/17 14:01> Subjective Progress Note Date: 08/16/17 62-year-old female seen and examined resting in bed. Patient reports not passing gas no stool but less abdominal pain involving the left lower flank. Denies any nausea vomiting. States urinating no difficulty. Abdominal x-ray results this morning reviewed x-ray findings similar to findings done on the CAT scan on August 15 consistent with fluid level suggesting obstructive changes left upper quadrant patient continues to be nothing by mouth with a conservative approach to treating small bowel obstruction Objective - Vital Signs Vital signs: Vital Signs Temp 97.0 F L 08/16/17 07:00 Pulse 90 08/16/17 12:35 Resp 15 08/16/17 08:00 BP 127/59 08/16/17 07:00 Pulse Ox 96 08/16/17 07:00 Intake & Output 08/15/17 08/16/17 08/16/17 18:59 06:59 18:59 Intake Total 50 Balance 50 Weight 70 kg 70 kg Intake: Intake, IV Titration 50 Amount Piperacillin-Tazobactam 3 50 .375 gm In Dextrose/Water 1 50ml.bag @ 12.5 mls/hr IVPB Q8HR [facility] Rx#: [id number] Other: Voiding Method Toilet Toilet # Voids 3 1 1 - Exam Physical exam Pleasant 62-year-old female sitting up in the event the bed talkative oriented 3 appears in no acute distress Lungs decreased at the bases otherwise adequate air movement sats on room air 90 % no cough noted no shortness of breath Heart S1-S2 audible regular denying chest pain Abdomen abdominal binder removed dressing removed retention sutures in place to surgical site packing in place scant amount of drainage on packing upper flank purple ecchymotic bruise nontender soft . Hypoactive bowel tones reports no nausea vomiting reports an improvement in the left lower flank abdominal pain reports urinating with no difficulty Extremities no edema noted - Labs CBC & Chem 7: 08/16/17 06:38 08/16/17 06:38 Labs: Abnormal Lab Results - Last 24 Hours (Table) 08/16/17 08/16/17 Range/Units 06:38 06:38 RBC 3.44 L (3.80-5.40) m/uL Hgb 10.9 L (11.4-16.0) gm/dL MCV 103.7 H (80.0-100.0) fL MCHC 30.7 L (31.0-37.0) g/dL Neutrophils # 8.5 H (1.3-7.7) k/uL Sodium 136 L (137-145) mmol/L Glucose 108 H (74-99) mg/dL Microbiology - Last 24 Hours (Table) 08/15/17 01:32 Blood Culture - Preliminary Blood No Growth after 24 hours Assessment and Plan Plan: Impression Present on admission abdominal pain suspect due to a partial small bowel obstruction likely inflammatory at the anterior abdominal wall closure no hernia Rheumatoid arthritis Hypertension essential Acute exacerbation of severe ,gold stage 1v chronic obstructive pulmonary disease Recent Right colon lesion with open right colectomy lysis of adhesions 2016 Wound dehiscence with subsequent repair of the fascia July 21 2017 with retention sutures an open wound with packing Remote history of nicotine dependency quit in 1999 Plan Continue with conservative management Keep nothing by mouth except for ice chips Pain control Pulmonary recommendations continue Respiratory treatments as ordered Increase activity as tolerated Wound care as ordered DVT and GI prophylaxis Continue IV Zosyn as ordered The above impression and plan of care have been discussed and directed by signing physician. Chapis Ramirez nurse practitioner acting as scribe for signing physician. <Brenden Burger - Last Filed: 08/16/17 16:12> Objective - Vital Signs Vital signs: Vital Signs Temp 99.8 F H 08/16/17 14:32 Pulse 90 08/16/17 12:35 Resp 16 08/16/17 14:32 BP 136/60 08/16/17 14:32 Pulse Ox 95 08/16/17 14:32 Intake & Output 08/15/17 08/16/17 08/16/17 18:59 06:59 18:59 Intake Total 50 950 Balance 50 950 Weight 70 kg 70 kg Intake: IV 900 Sodium Chloride 0.9% 1, 900 000 ml @ 120 mls/hr IV . Q8H20M [facility] Rx#:[id number] Intake, IV Titration 50 50 Amount Piperacillin-Tazobactam 3 50 50 .375 gm In Dextrose/Water 1 50ml.bag @ 12.5 mls/hr IVPB Q8HR [facility] Rx#: [id number] Other: Voiding Method Toilet Toilet # Voids 3 1 1 - Labs CBC & Chem 7: 08/16/17 06:38 08/16/17 06:38 Labs: Abnormal Lab Results - Last 24 Hours (Table) 08/16/17 08/16/17 Range/Units 06:38 06:38 RBC 3.44 L (3.80-5.40) m/uL Hgb 10.9 L (11.4-16.0) gm/dL MCV 103.7 H (80.0-100.0) fL MCHC 30.7 L (31.0-37.0) g/dL Neutrophils # 8.5 H (1.3-7.7) k/uL Sodium 136 L (137-145) mmol/L Glucose 108 H (74-99) mg/dL Microbiology - Last 24 Hours (Table) 08/15/17 01:32 Blood Culture - Preliminary Blood No Growth after 24 hours Assessment and Plan (1) Small bowel obstruction Current Visit: Yes Status: Acute Code(s): K56.609 - SNOMED Code(s): 418347509 Plan: As above. Patient was feeling better although experienced some crampy abdominal pain this afternoon. Small amount of flatus but no bowel movement. White blood cell count normal. Today's x-rays show persistent SBO findings. She remains afebrile. Will keep nothing by mouth for now. Repeat abdominal x- rays ordered for 08/18.
[2017-08-16] MEDS: SODIUM CHLORIDE 0.9% 1,000 ML IV SCH ×2 (15:14→20:13)
--- NOTE | 2017-08-16 17:16 | P.PN ---
Subjective Progress Note Date: 08/16/17 Progress note being dictated for Dr. Cook Interval history:Patient is a 62-year-old female with a known history of rheumatoid arthritis and advanced COPD with recent history of partial colectomy due to colon polyp came to the hospital complains of abdominal pain cramping started yesterday evening. Patient denied any fever or chills. No blood in the stool. Patient also nauseated area or so vomiting. Patient recently had a complicated hospital course after partial colectomy. Patient had wound lesions and was taken back to or for repeat and was also treated for COPD at the time patient was subsequently discharged with much improvement and has been doing well until last evening. Patient had CT of the abdominal pelvis done in the ER showed sinus of partial small bowel obstruction. Patient was seen by Dr. Stewart and currently patient is being managed conservatively with IV fluids and nothing by mouth. Does have multiple medical problems and comorbid conditions. Denied any chest pain or short of breath. 08/16/2017 NPO, maintained on IV fluid hydration, Zosyn, nebulized bronchodilators and IV steroids. no flatus, no bowel movement diffuse abdominal pain across bilateral upper quadrants positive nausea without emesis. Abdominal x-rays performed reporting solitary dilated small bowel loops with air -fluid level, suggestive continue obstructive changes; unchanged from prior exam. Denies chest pain, palpitations or increasing shortness of breath. Afebrile. Objective - Vital Signs Vital signs: Vital Signs Temp 99.8 F H 08/16/17 14:32 Pulse 88 08/16/17 16:31 Resp 16 08/16/17 16:00 BP 136/60 08/16/17 14:32 Pulse Ox 95 08/16/17 14:32 Intake & Output 08/15/17 08/16/17 08/16/17 18:59 06:59 18:59 Intake Total 50 950 Balance 50 950 Weight 70 kg 70 kg Intake: IV 900 Sodium Chloride 0.9% 1, 900 000 ml @ 120 mls/hr IV . Q8H20M [facility] Rx#:[id number] Intake, IV Titration 50 50 Amount Piperacillin-Tazobactam 3 50 50 .375 gm In Dextrose/Water 1 50ml.bag @ 12.5 mls/hr IVPB Q8HR [facility] Rx#: [id number] Other: Voiding Method Toilet Toilet # Voids 3 1 1 - Exam Patient is lying in the bed comfortably, no acute distress, awake alert and oriented.. HEENT: Normocephalic. Neck is supple. Pupils reactive. Nostrils clear. Oral cavity is moist. Ears reveal no drainage. Neck reveals no JVD, carotid bruits, or thyromegaly. CHEST EXAMINATION: Trachea is central. Symmetrical expansion. Bilateral diffuse expiratory wheezing. No crackles noted CARDIAC: Normal S1, S2 with no gallops. No murmurs ABDOMEN: Soft, mildly distended, retention sutures present. Hypoactive Bowel sounds normal. No organomegaly. No abdominal bruits. No guarding, no rigidity Extremities: reveal no edema. No clubbing or cyanosis Neurologically awake, alert, oriented x3 with well-coordinated movements. No focal deficits noted Skin: No rash or skin lesions. Psychiatric: Operative. Nonsuicidal Musculoskeletal: No joint swelling or deformity. Normal range of motion. - Labs CBC & Chem 7: 08/16/17 06:38 08/16/17 06:38 Labs: Abnormal Lab Results - Last 24 Hours (Table) 08/16/17 08/16/17 Range/Units 06:38 06:38 RBC 3.44 L (3.80-5.40) m/uL Hgb 10.9 L (11.4-16.0) gm/dL MCV 103.7 H (80.0-100.0) fL MCHC 30.7 L (31.0-37.0) g/dL Neutrophils # 8.5 H (1.3-7.7) k/uL Sodium 136 L (137-145) mmol/L Glucose 108 H (74-99) mg/dL Microbiology - Last 24 Hours (Table) 08/15/17 01:32 Blood Culture - Preliminary Blood No Growth after 24 hours Assessment and Plan Assessment: #1 abdominal pain secondary to small bowel obstruction at the recent surgical site. Possible adhesion/inflammation #2 right colon lesion status post partial colectomy about a month back and followed by wound dehiscence and repair #3 acute COPD exacerbation gold stage IV criteria #4 rheumatoid arthritis #5 hypertension #6 DVT prophylaxis Plan: Plan: Continue on current medication regime, nebulized bronchodilators, IV steroids, Zosyn, monitoring and symptomatic treatment. GI and DVT( heparin and Protonix) prophylaxis in place. NPO. IV fluid hydration. conservative management as per surgery. Aggressive pulmonary toileting, incentive spirometer reinforced. Increase ambulation as tolerated. The impression and plan of care has been dictated as directed. : I performed a history and examination of this patient, discussed the same with the dictator. I agree with the dictator's note ,documented as a scribe. Any additional findings or plans will be noted.
[2017-08-16] MEDS: MONTELUKAST 10 MG TAB PO SCH (21:47)
[2017-08-17] MEDS: SODIUM CHLORIDE 0.9% 1,000 ML IV SCH ×4 (02:36→23:03)
[2017-08-17] MEDS: HYDROmorphone 1 MG/ML 1 ML SYRINGE IVP PRN ×3 (03:08→08:54)
[2017-08-17 07:50] LABS: Basophils % (A) 0 %; CH 32.5; CHCM 31.1; Eosinophils % (A) 0 %; HDW 2.52; HGB 10.9 gm/dL (11.4-16.0); Hypochromasia Slight; Luc # (Auto) 0.13; Luc % (Auto) 1; Lymphocytes # (A) 2.5 k/uL (1.0-4.8); Lymphocytes % (A) 21 %; MCH 32.7 pg (25.0-35.0); MCHC 31.2 g/dL (31.0-37.0); MCV 105.1 fL (80.0-100.0); Macrocytosis Moderate; Mean Platelet Volume 7.3; Monocytes # (A) 0.8 k/uL (0-1.0); Monocytes % (A) 7 %; Neutrophils # (A) 8.4 k/uL (1.3-7.7); Neutrophils % (A) 70 %; RBC 3.33 m/uL (3.80-5.40); RDW 14.6 % (11.5-15.5); WBC 11.9 k/uL (3.8-10.6); WBC (Perox) 12.03
[2017-08-17 08:03] LABS: Anion Gap 5 mmol/L; Blood Urea Nitrogen 11 mg/dL (7-17); Calcium 8.7 mg/dL (8.4-10.2); Carbon Dioxide 28 mmol/L (22-30); Chloride 104 mmol/L (98-107); Glucose 73 mg/dL (74-99); Non-African American GFR(MDRD) >60 (>60 ml/min/1.73 sqM); Potassium 4.1 mmol/L (3.5-5.1); Sodium 137 mmol/L (137-145)
[2017-08-17] MEDS: IPRATROPIUM-ALBUTEROL 3 ML NEB INHALATION SCH ×4 (08:04→19:24)
[2017-08-17] MEDS: BUDESONIDE 1 MG/2 ML NEBU INHALATION SCH (08:05)
[2017-08-17] MEDS: FORMOTEROL FUMARATE 20 MCG/2 ML NEBU INHALATION SCH (08:05)
[2017-08-17] MEDS: methylPREDNISolone SOD SUCCI 40 MG/ML 1 ML VIAL IV SCH (08:55)
[2017-08-17] MEDS: PANTOPRAZOLE 40 MG/10 ML VIAL IV SCH (08:55)
[2017-08-17] MEDS: HEPARIN SODIUM,PORCINE 5,000 UNIT/ML 1 ML VIAL SQ SCH ×3 (08:55→23:04)
[2017-08-17] MEDS: LISINOPRIL 20 MG TAB PO SCH (09:01)
[2017-08-17] MEDS: FUROSEMIDE 40 MG TAB PO SCH (09:01)
[2017-08-17] MEDS: MULTIVITAMINS, THERA 1 EACH TAB PO SCH (09:01)
[2017-08-17] MEDS: PIPERACILLIN-TAZOBACTAM 3.375 GM in DEXTROSE/WATER 1 50ML.BAG IVPB SCH ×3 (09:16→23:03)
--- NOTE | 2017-08-17 09:34 | P.PN ---
Subjective Progress Note Date: 08/17/17 Principal diagnosis: Small bowel obstruction likely due to inflammation/adhesions, acute exacerbation of COPD This is a very pleasant 62-year-old female patient who follows with Dr. Mijares as her primary care physician. She has a history of rheumatoid arthritis, hypertension. She also has a history of severe Gold stage IV chronic obstructive pulmonary disease. Her FEV1 value was 27% of predicted. She had recently undergone a right colectomy for precancerous colonic polyp. Following surgery she had developed abdominal wound dehiscence and had prolonged hospitalization. She was subsequently discharged. She had been seen in follow- up by Dr. Goodman on 08/01/2017. At that time she was doing quite well. She still had open wound which was being packed daily. She has has retention sutures still in place. She had recently been treated for COPD exacerbation as well. She presented here yesterday to the emergency room with complaints of recurrent abdominal pain. A computed tomography scan of the abdomen did reveal a small bowel obstruction with transition point in the anterior mid abdomen adjacent to the laparotomy site, likely due to adhesion. She has been seen and evaluated by Dr. Burger. He does feel there is some inflammatory changes at the anterior abdominal wall closure. She is currently nothing by mouth. Conservative treatment has been initiated. Her consulted for her ongoing issues with COPD exacerbation she was on a prednisone taper on her second day of 40 mg. Her white count is 13.3. Hemoglobin 13.2. CO2 level 31. She is maintaining good O2 saturations in the upper 90s on room air. She is afebrile. Hemodynamically stable. She has been initiated on Zosyn. On 08/16/2017 patient is seen in follow-up. She continues with moderate abdominal cramping worse across the lower abdomen. She denies nausea, vomiting. She is strict nothing by mouth right now. Follow-up abdominal x-ray from 08/16/2017 shows solitary dilated small bowel loop with air fluid level suggesting continued obstructive changes. This is unchanged from the previous exam on 08/15/2017. General surgery is following. From pulmonary standpoint and is doing well. Faint few expiratory wheezes auscultated on forced exhale maneuver, no evidence of chest congestion. She is on 2 L oxygen per nasal cannula with O2 sat at 95-96. No Febrile episodes. Continue with Zosyn for empiric antibiotic coverage, With IV steroids and nebulizer treatments. On 08/17/2017patient is reevaluated. She continues with some abdominal cramping and she is having some mild nausea, but no emesis. she hasn't passed any gas, has not had any bowel movements. She continues to be nothing by mouth. Repeat abdominal x-ray was taken this morning. Results are not available yet. possible CT of the abdomen tomorrow per surgery. From pulmonary standpoint she continues to do well. Evidence of chest congestion. Some mild wheezing, she is wearing her oxygen intermittently at 2 L per nasal cannula, been ambulating in the room without any signs of respiratory distress. yesterday increased her IV Solu-Medrol to 20 IV daily, she'll continue with nebulizer treatments and Zosyn for antibiotic coverage. Objective - Vital Signs Vital signs: Vital Signs Temp 97.7 F 08/17/17 07:00 Pulse 81 08/17/17 08:31 Resp 16 08/17/17 08:19 BP 150/67 08/17/17 07:00 Pulse Ox 97 08/17/17 07:00 Intake & Output 08/16/17 08/17/17 08/17/17 18:59 06:59 18:59 Intake Total 950 1430 Balance 950 1430 Weight 70 kg Intake: IV 900 1380 Sodium Chloride 0.9% 1, 900 1380 000 ml @ 120 mls/hr IV . Q8H20M [facility] Rx#:[id number] Intake, IV Titration 50 50 Amount Piperacillin-Tazobactam 3 50 50 .375 gm In Dextrose/Water 1 50ml.bag @ 12.5 mls/hr IVPB Q8HR [facility] Rx#: [id number] Other: Voiding Method Toilet Toilet # Voids 1 2 1 - Exam GENERAL EXAM: Obese. Features of cushingoid. Alert, fairly comfortable in no apparent distress. HEAD: Normocephalic. EYES: Normal reaction of pupils, equal size. NOSE: Clear with pink turbinates. THROAT: No erythema or exudates. NECK: No masses, no JVD. CHEST: No chest wall deformity. LUNGS: Equal air entry with faint end expiratory wheeze bilaterally. Diminished. CVS: S1 and S2 normal with no audible murmur, regular rhythm. ABDOMEN: Slightly distended. Retention sutures in place. Midline wound with packing. Hypoactive bowel sounds, no guarding or rigidity. SPINE: Kyphoscoliosis SKIN: No rashes, slight erythema at surgical site. CENTRAL NERVOUS SYSTEM: No focal deficits, tone is normal in all 4 extremities. EXTREMITIES: There is no peripheral edema. No clubbing, no cyanosis. Peripheral pulses are intact. - Labs CBC & Chem 7: 08/17/17 07:11 08/17/17 07:11 Labs: Abnormal Lab Results - Last 24 Hours (Table) 08/17/17 08/17/17 Range/Units 07:11 07:11 WBC 11.9 H (3.8-10.6) k/uL RBC 3.33 L (3.80-5.40) m/uL Hgb 10.9 L (11.4-16.0) gm/dL MCV 105.1 H (80.0-100.0) fL Neutrophils # 8.4 H (1.3-7.7) k/uL Glucose 73 L (74-99) mg/dL Microbiology - Last 24 Hours (Table) 08/15/17 01:32 Blood Culture - Preliminary Blood No Growth after 48 hours Assessment and Plan Plan: Impression: #1 Abdominal pain secondary to small bowel obstruction with transition point in the anterior mid abdomen adjacent sent to the laparotomy site likely due to inflammation/adhesion. Follow-up abdominal x-ray from 08/16/2017 continues with evidence of small bowel obstruction unchanged from previous exam on 2016. #2 Right colon lesion, suprapubic sebaceous cyst with open right colectomy with excision of the suprapubic sebaceous cyst and lysis of adhesions on 07/13/2017. #3 Wound dehiscence with subsequent repair of the fascial dehiscence on 2016. Retention sutures and open wound with packing continue. #4 Acute exacerbation of severe Gold stage IV chronic obstructive pulmonary disease with an FEV1 value of 27% of predicted. #5 Rheumatoid arthritis. #6 Essential hypertension. Plan: continues with abdominal cramping and some mild nausea. He has not passed any stool or gas. She is currently stable from the pulmonary standpoint. We'll continue with her pulmonary medications including DuoNeb inhalations 4 times a day and when necessary, Perforomist and Pulmicort inhalations twice a day, Singulair and IV Solu-Medrol. Continue Zosyn. She is on heparin for DVT prophylaxis. Protonix for GI prophylaxis. We will increase her activity as tolerated. The plan is for conservative treatment of her small bowel obstruction. She'll remain nothing by mouth for now. We will continue to follow and make further recommendations based on her clinical status. I performed a history & physical examination of the patient and discussed their management with my nurse practitioner, Savanah Mart. I reviewed the nurse practitioner's note and agree with the documented findings and plan of care. Lung sounds equal air entry bilaterally with scattered expiratory wheezing, but no chest congestion or rhonchi. I attest to the documentation by the nurse practitioner
--- NOTE | 2017-08-17 10:36 | XR ---
EXAMINATION TYPE: XR abdomen 2V DATE OF EXAM: 08/17/2017 COMPARISON: 08/16/2017 INDICATION: Partial small bowel obstruction TECHNIQUE: Acute abdominal series performed within upright view supine view. FINDINGS: There are catheter-type structures within the midabdomen. Air-fluid levels or differential air-fluid levels are within small bowel loops predominantly in left upper quadrant. Small amount of colonic bow el gas is present. No mass effect is evident. Psoas margins are normal. No free air is evident. Organomegaly is not present. There is some progress ion of the nondilated differential air-fluid levels compared to prior study. IMPRESSION: 1. Differential air-fluid levels with slight increasing prominence of small bowel loops compatible wi th partial small bowel obstruction. Findings are slightly worsened from previous day.
[2017-08-17] MEDS ORDERED: HYDROmorphone 1 MG/ML 1 ML SYRINGE IVP PRN (10:52)
[2017-08-17] MEDS ORDERED: METOCLOPRAMIDE 5 MG/ML 2 ML VIAL IVP PRN (11:09)
--- NOTE | 2017-08-17 11:28 | P.PN ---
<Chapis Ramirez Latoya - Last Filed: 08/17/17 11:21> Subjective Progress Note Date: 08/17/17 62-year-old female resting in bed. Patient states continues to have right lower quadrant pain. Patient describes it as a sharp crampy sensation. Patient states is not passing gas no stool. Urinating no difficulty. Patient states " the only thing that helps the pain is if she takes IV dilaudid" patient states [place] makes her feel nauseated. Did note the patient has [place]' s that she takes at home which the patient states she has been taking but doesn' t always relieve the pain. Patient does have a history of rheumatoid arthritis. Also has a history of advanced COPD. Former smoker. No fever chills noted did note the white count is down to 11.9. On admission wbc 13.3 Recent 07/13/2017 right colon lesion with an open right colectomy lysis of adhesions subsequent wound dehiscence with repair July 21 with retention sutures placed with open wound packing Two-view abdominal x-ray this morning showed findings compatible with small bowel obstruction slightly worse than a prior exam the day before Objective - Vital Signs Vital signs: Vital Signs Temp 97.7 F 08/17/17 07:00 Pulse 81 08/17/17 08:31 Resp 16 08/17/17 08:19 BP 150/67 08/17/17 07:00 Pulse Ox 97 08/17/17 07:00 Intake & Output 08/16/17 08/17/17 08/17/17 18:59 06:59 18:59 Intake Total 950 1430 Balance 950 1430 Weight 70 kg Intake: IV 900 1380 Sodium Chloride 0.9% 1, 900 1380 000 ml @ 120 mls/hr IV . Q8H20M [facility] Rx#:[id number] Intake, IV Titration 50 50 Amount Piperacillin-Tazobactam 3 50 50 .375 gm In Dextrose/Water 1 50ml.bag @ 12.5 mls/hr IVPB Q8HR [facility] Rx#: [id number] Other: Voiding Method Toilet Toilet # Voids 1 2 1 - Exam Physical exam Pleasant 62-year-old female resting in bed oriented 3 appears in no acute distress Lungs decreased at the bases otherwise adequate air movement sats on room air 90 % no cough noted no shortness of breath no wheezing noted no conversational dyspnea noted Heart S1-S2 audible regular denying chest pain no murmur noted Abdomen abdominal binder removed dressing removed retention sutures in place to surgical site packing in place scant amount of drainage on packing upper flank purple ecchymotic bruise nontender soft . Hypoactive bowel tones reports no nausea vomiting reports an improvement in the left lower flank abdominal pain reports urinating with no difficulty Extremities no edema noted - Labs CBC & Chem 7: 08/17/17 07:11 08/17/17 07:11 Labs: Abnormal Lab Results - Last 24 Hours (Table) 08/17/17 08/17/17 Range/Units 07:11 07:11 WBC 11.9 H (3.8-10.6) k/uL RBC 3.33 L (3.80-5.40) m/uL Hgb 10.9 L (11.4-16.0) gm/dL MCV 105.1 H (80.0-100.0) fL Neutrophils # 8.4 H (1.3-7.7) k/uL Glucose 73 L (74-99) mg/dL Microbiology - Last 24 Hours (Table) 08/15/17 01:32 Blood Culture - Preliminary Blood No Growth after 48 hours Assessment and Plan Plan: Impression Present on admission abdominal pain suspect due to a partial small bowel obstruction likely inflammatory at the anterior abdominal wall closure no hernia Rheumatoid arthritis Hypertension essential Acute exacerbation of severe ,gold stage 1v chronic obstructive pulmonary disease Recent Right colon lesion with open right colectomy lysis of adhesions 2016 Wound dehiscence with subsequent repair of the fascia July 21 2017 with retention sutures an open wound with packing Remote history of nicotine dependency quit in 1999 Chronic pain with narcotic dependency Plan Nothing by mouth except for ice chips meds with the sip of water Continue with conservative management Decrease IV Dilaudid .5mg every 6 hours when necessary pain Restart home dose [place] Encourage patient to ambulate in the cardoso Pain control Pulmonary recommendations continue Respiratory treatments as ordered Consider computed tomography scan abdomen pelvis in the a.m. oral contrast if no improvement Wound care as ordered DVT and GI prophylaxis Continue IV Zosyn as ordered The above impression and plan of care have been discussed and directed by signing physician. Chapis Ramirez nurse practitioner acting as scribe for signing physician. <Rosa Fine - Last Filed: 08/17/17 16:08> Objective - Vital Signs Vital signs: Vital Signs Temp 98.6 F 08/17/17 14:07 Pulse 78 08/17/17 16:01 Resp 16 08/17/17 14:07 BP 129/69 08/17/17 14:07 Pulse Ox 96 08/17/17 14:07 Intake & Output 08/16/17 08/17/17 08/17/17 18:59 06:59 18:59 Intake Total 950 1430 500 Balance 950 1430 500 Weight 70 kg Intake: IV 900 1380 500 Sodium Chloride 0.9% 1, 900 1380 500 000 ml @ 120 mls/hr IV . Q8H20M [facility] Rx#:[id number] Intake, IV Titration 50 50 Amount Piperacillin-Tazobactam 3 50 50 .375 gm In Dextrose/Water 1 50ml.bag @ 12.5 mls/hr IVPB Q8HR [facility] Rx#: [id number] Other: Voiding Method Toilet Toilet Toilet # Voids 1 2 1 - Labs CBC & Chem 7: 08/17/17 07:11 08/17/17 07:11 Labs: Abnormal Lab Results - Last 24 Hours (Table) 08/17/17 08/17/17 Range/Units 07:11 07:11 WBC 11.9 H (3.8-10.6) k/uL RBC 3.33 L (3.80-5.40) m/uL Hgb 10.9 L (11.4-16.0) gm/dL MCV 105.1 H (80.0-100.0) fL Neutrophils # 8.4 H (1.3-7.7) k/uL Glucose 73 L (74-99) mg/dL Microbiology - Last 24 Hours (Table) 08/15/17 01:32 Blood Culture - Preliminary Blood No Growth after 48 hours
[2017-08-17] MEDS: KETOROLAC 30 MG/ML 1 ML VIAL IVP SCH ×3 (12:27→23:03)
--- NOTE | 2017-08-17 16:38 | P.PN ---
Subjective Progress Note Date: 08/17/17 Progress note being dictated for Dr. Cook Interval history:Patient is a 62-year-old female with a known history of rheumatoid arthritis and advanced COPD with recent history of partial colectomy due to colon polyp came to the hospital complains of abdominal pain cramping started yesterday evening. Patient denied any fever or chills. No blood in the stool. Patient also nauseated area or so vomiting. Patient recently had a complicated hospital course after partial colectomy. Patient had wound lesions and was taken back to or for repeat and was also treated for COPD at the time patient was subsequently discharged with much improvement and has been doing well until last evening. Patient had CT of the abdominal pelvis done in the ER showed sinus of partial small bowel obstruction. Patient was seen by Dr. Stewart and currently patient is being managed conservatively with IV fluids and nothing by mouth. Does have multiple medical problems and comorbid conditions. Denied any chest pain or short of breath. 08/16/2017 NPO, maintained on IV fluid hydration, Zosyn, nebulized bronchodilators and IV steroids. no flatus, no bowel movement diffuse abdominal pain across bilateral upper quadrants positive nausea without emesis. Abdominal x-rays performed reporting solitary dilated small bowel loops with air -fluid level, suggestive continue obstructive changes; unchanged from prior exam. Denies chest pain, palpitations or increasing shortness of breath. Afebrile. 08/17/2017. Maintained on IV fluids. NPO. Passing no flatus, complains of mild nausea without emesis . Hypoactive bowel sounds. Complains of cramping discomfort throughout all quadrants. WBC up to 11.9, T-max 99.1. Abdominal x- ray today suggestive of worsening small bowel obstruction. Better pain control with addition of Toradol. Denies chest pain, palpitations or increased shortness of breath. Objective - Vital Signs Vital signs: Vital Signs Temp 98.6 F 08/17/17 14:07 Pulse 78 08/17/17 16:01 Resp 16 08/17/17 16:00 BP 129/69 08/17/17 14:07 Pulse Ox 96 08/17/17 14:07 Intake & Output 08/16/17 08/17/17 08/17/17 18:59 06:59 18:59 Intake Total 950 1430 500 Balance 950 1430 500 Weight 70 kg 70 kg Intake: IV 900 1380 500 Sodium Chloride 0.9% 1, 900 1380 500 000 ml @ 120 mls/hr IV . Q8H20M [facility] Rx#:[id number] Intake, IV Titration 50 50 Amount Piperacillin-Tazobactam 3 50 50 .375 gm In Dextrose/Water 1 50ml.bag @ 12.5 mls/hr IVPB Q8HR [facility] Rx#: [id number] Other: Voiding Method Toilet Toilet Toilet # Voids 1 2 1 - Exam Patient is lying in the bed comfortably, no acute distress, awake alert and oriented.. HEENT: Normocephalic. Neck is supple. Pupils reactive. Nostrils clear. Oral cavity is moist. Ears reveal no drainage. Neck reveals no JVD, carotid bruits, or thyromegaly. CHEST EXAMINATION: Trachea is central. Symmetrical expansion. Bilateral diffuse expiratory wheezing. No crackles noted CARDIAC: Normal S1, S2 with no gallops. No murmurs ABDOMEN: Soft, mildly distended, retention sutures present. Hypoactive Bowel sounds normal. No organomegaly. No abdominal bruits. No guarding, no rigidity Extremities: reveal no edema. No clubbing or cyanosis Neurologically awake, alert, oriented x3 with well-coordinated movements. No focal deficits noted Skin: No rash or skin lesions. Psychiatric: Operative. Nonsuicidal Musculoskeletal: No joint swelling or deformity. Normal range of motion. - Labs CBC & Chem 7: 08/17/17 07:11 08/17/17 07:11 Labs: Abnormal Lab Results - Last 24 Hours (Table) 08/17/17 08/17/17 Range/Units 07:11 07:11 WBC 11.9 H (3.8-10.6) k/uL RBC 3.33 L (3.80-5.40) m/uL Hgb 10.9 L (11.4-16.0) gm/dL MCV 105.1 H (80.0-100.0) fL Neutrophils # 8.4 H (1.3-7.7) k/uL Glucose 73 L (74-99) mg/dL Microbiology - Last 24 Hours (Table) 08/15/17 01:32 Blood Culture - Preliminary Blood No Growth after 48 hours Assessment and Plan Assessment: #1 abdominal pain secondary to small bowel obstruction at the recent surgical site. Possible adhesion/inflammation #2 right colon lesion status post partial colectomy about a month back and followed by wound dehiscence and repair #3 acute COPD exacerbation gold stage IV criteria #4 rheumatoid arthritis #5 hypertension #6 DVT prophylaxis Plan: Plan: Continue on current medication regime, nebulized bronchodilators, IV steroids, Zosyn, monitoring and symptomatic treatment. GI and DVT( heparin and Protonix) prophylaxis in place. IV fluid hydration. Maintain conservative management as per surgery. Pain management as per surgery.Aggressive pulmonary toileting, incentive spirometer reinforced. Increase ambulation as tolerated. The impression and plan of care has been dictated as directed. : I performed a history and examination of this patient, discussed the same with the dictator. I agree with the dictator's note ,documented as a scribe. Any additional findings or plans will be noted.
[2017-08-17] MEDS: MONTELUKAST 10 MG TAB PO SCH (20:20)
[2017-08-17] MEDS: HYDROcodone/APAP 10-325MG 1 EACH TAB PO PRN (23:14)
[2017-08-18] MEDS: IPRATROPIUM-ALBUTEROL 3 ML NEB INHALATION PRN (05:21)
[2017-08-18] MEDS: KETOROLAC 30 MG/ML 1 ML VIAL IVP SCH (05:35)
--- NOTE | 2017-08-18 06:38 | XR ---
EXAMINATION TYPE: XR abdomen 2V , 2 VIEWS DATE OF EXAM ORDERED: 08/18/2017 HISTORY: Follow-up sbo. COMPARISON: Previous study dated 08/17/2017. FINDINGS: The lung bases are clear. There is a single mildly dilated loops of small bowel in the left upper quadrant. There are scattered air-fluid levels. There is no evidence of free air. Tubing projects over the lower abdomen. No unusu al calcifications are seen. IMPRESSION: MILD ILEUS VERSUS EARLY SMALL BOWEL OBSTRUCTION.
[2017-08-18 06:59] LABS: Basophils % (A) 0 %; CH 31.7; CHCM 30.7; Eosinophils # (A) 0.1 k/uL (0-0.7); Eosinophils % (A) 1 %; HCT 33.4 % (34.0-46.0); HDW 2.59; HGB 10.4 gm/dL (11.4-16.0); Hypochromasia Moderate; Luc # (Auto) 0.16; Luc % (Auto) 1; Lymphocytes # (A) 2.4 k/uL (1.0-4.8); Lymphocytes % (A) 17 %; MCH 32.4 pg (25.0-35.0); MCHC 31.1 g/dL (31.0-37.0); MCV 104.1 fL (80.0-100.0); Macrocytosis Slight; Mean Platelet Volume 7.5; Monocytes # (A) 1.2 k/uL (0-1.0); Monocytes % (A) 8 %; Neutrophils # (A) 10.4 k/uL (1.3-7.7); Neutrophils % (A) 73 %; RBC 3.21 m/uL (3.80-5.40); RDW 14.4 % (11.5-15.5); WBC 14.3 k/uL (3.8-10.6); WBC (Perox) 13.82
[2017-08-18] MEDS: BUDESONIDE 1 MG/2 ML NEBU INHALATION SCH ×2 (07:09→08:29)
[2017-08-18] MEDS: FORMOTEROL FUMARATE 20 MCG/2 ML NEBU INHALATION SCH ×2 (07:09→08:29)
[2017-08-18] MEDS: IPRATROPIUM-ALBUTEROL 3 ML NEB INHALATION SCH ×5 (07:09→19:43)
[2017-08-18 07:11] LABS: Anion Gap 8 mmol/L; Blood Urea Nitrogen 10 mg/dL (7-17); Calcium 8.4 mg/dL (8.4-10.2); Carbon Dioxide 23 mmol/L (22-30); Chloride 109 mmol/L (98-107); Glucose 69 mg/dL (74-99); Non-African American GFR(MDRD) >60 (>60 ml/min/1.73 sqM); Potassium 3.3 mmol/L (3.5-5.1); Sodium 140 mmol/L (137-145)
--- NOTE | 2017-08-18 07:52 | P.PN ---
Subjective Progress Note Date: 08/18/17 Principal diagnosis: Small bowel obstruction likely due to inflammation/adhesions, acute exacerbation of COPD This is a very pleasant 62-year-old female patient who follows with Dr. Mijares as her primary care physician. She has a history of rheumatoid arthritis, hypertension. She also has a history of severe Gold stage IV chronic obstructive pulmonary disease. Her FEV1 value was 27% of predicted. She had recently undergone a right colectomy for precancerous colonic polyp. Following surgery she had developed abdominal wound dehiscence and had prolonged hospitalization. She was subsequently discharged. She had been seen in follow- up by Dr. Goodman on 08/01/2017. At that time she was doing quite well. She still had open wound which was being packed daily. She has has retention sutures still in place. She had recently been treated for COPD exacerbation as well. She presented here yesterday to the emergency room with complaints of recurrent abdominal pain. A computed tomography scan of the abdomen did reveal a small bowel obstruction with transition point in the anterior mid abdomen adjacent to the laparotomy site, likely due to adhesion. She has been seen and evaluated by Dr. Burger. He does feel there is some inflammatory changes at the anterior abdominal wall closure. She is currently nothing by mouth. Conservative treatment has been initiated. Her consulted for her ongoing issues with COPD exacerbation she was on a prednisone taper on her second day of 40 mg. Her white count is 13.3. Hemoglobin 13.2. CO2 level 31. She is maintaining good O2 saturations in the upper 90s on room air. She is afebrile. Hemodynamically stable. She has been initiated on Zosyn. On 08/16/2017 patient is seen in follow-up. She continues with moderate abdominal cramping worse across the lower abdomen. She denies nausea, vomiting. She is strict nothing by mouth right now. Follow-up abdominal x-ray from 08/16/2017 shows solitary dilated small bowel loop with air fluid level suggesting continued obstructive changes. This is unchanged from the previous exam on 08/15/2017. General surgery is following. From pulmonary standpoint and is doing well. Faint few expiratory wheezes auscultated on forced exhale maneuver, no evidence of chest congestion. She is on 2 L oxygen per nasal cannula with O2 sat at 95-96. No Febrile episodes. Continue with Zosyn for empiric antibiotic coverage, With IV steroids and nebulizer treatments. On 08/17/2017patient is reevaluated. She continues with some abdominal cramping and she is having some mild nausea, but no emesis. she hasn't passed any gas, has not had any bowel movements. She continues to be nothing by mouth. Repeat abdominal x-ray was taken this morning. Results are not available yet. possible CT of the abdomen tomorrow per surgery. From pulmonary standpoint she continues to do well. Evidence of chest congestion. Some mild wheezing, she is wearing her oxygen intermittently at 2 L per nasal cannula, been ambulating in the room without any signs of respiratory distress. yesterday increased her IV Solu-Medrol to 20 IV daily, she'll continue with nebulizer treatments and Zosyn for antibiotic coverage. On 08/18/2017 patient had 2 bowel movements this morning, there are active bowel sounds 4 quadrants, more active in the upper quadrants. No nausea, no vomiting. Stable from pulmonary standpoint. Abdominal x-ray from 08/18/2017 showed mild ileus versus early small bowel obstruction. No evidence of free air. Lung sounds few scattered end expiratory wheezes. No significant sputum production, and is afebrile. Objective - Vital Signs Vital signs: Vital Signs Temp 98.3 F 08/18/17 00:59 Pulse 76 08/18/17 05:31 Resp 17 08/18/17 00:59 BP 173/77 08/18/17 00:59 Pulse Ox 95 08/18/17 00:59 Intake & Output 08/17/17 08/18/17 08/18/17 18:59 06:59 18:59 Intake Total 500 1480 Balance 500 1480 Weight 70 kg Intake: IV 500 1380 Sodium Chloride 0.9% 1, 500 1380 000 ml @ 120 mls/hr IV . Q8H20M [facility] Rx#:[id number] Intake, IV Titration 100 Amount Piperacillin-Tazobactam 3 100 .375 gm In Dextrose/Water 1 50ml.bag @ 12.5 mls/hr IVPB Q8HR [facility] Rx#: [id number] Other: Voiding Method Toilet Toilet # Voids 1 1 - Exam GENERAL EXAM: Obese. Features of cushingoid. Alert, fairly comfortable in no apparent distress. HEAD: Normocephalic. EYES: Normal reaction of pupils, equal size. NOSE: Clear with pink turbinates. THROAT: No erythema or exudates. NECK: No masses, no JVD. CHEST: No chest wall deformity. LUNGS: Equal air entry with faint end expiratory wheeze bilaterally. Diminished. CVS: S1 and S2 normal with no audible murmur, regular rhythm. ABDOMEN: Slightly distended. Retention sutures in place. Midline wound with packing. Hypoactive bowel sounds, no guarding or rigidity. SPINE: Kyphoscoliosis SKIN: No rashes, slight erythema at surgical site. CENTRAL NERVOUS SYSTEM: No focal deficits, tone is normal in all 4 extremities. EXTREMITIES: There is no peripheral edema. No clubbing, no cyanosis. Peripheral pulses are intact. - Labs CBC & Chem 7: 08/18/17 06:40 08/18/17 06:40 Labs: Abnormal Lab Results - Last 24 Hours (Table) 08/17/17 08/17/17 08/18/17 Range/Units 07:11 07:11 06:40 WBC 11.9 H 14.3 H (3.8-10.6) k/uL RBC 3.33 L 3.21 L (3.80-5.40) m/uL Hgb 10.9 L 10.4 L (11.4-16.0) gm/dL Hct 33.4 L (34.0-46.0) % MCV 105.1 H 104.1 H (80.0-100.0) fL Neutrophils # 8.4 H 10.4 H (1.3-7.7) k/uL Monocytes # 1.2 H (0-1.0) k/uL Potassium (3.5-5.1) mmol/L Chloride (98-107) mmol/L Glucose 73 L (74-99) mg/dL 08/18/17 Range/Units 06:40 WBC (3.8-10.6) k/uL RBC (3.80-5.40) m/uL Hgb (11.4-16.0) gm/dL Hct (34.0-46.0) % MCV (80.0-100.0) fL Neutrophils # (1.3-7.7) k/uL Monocytes # (0-1.0) k/uL Potassium 3.3 L (3.5-5.1) mmol/L Chloride 109 H (98-107) mmol/L Glucose 69 L (74-99) mg/dL Microbiology - Last 24 Hours (Table) 08/15/17 01:32 Blood Culture - Preliminary Blood No Growth after 72 hours Assessment and Plan Plan: Impression: #1 Abdominal pain secondary to small bowel obstruction with transition point in the anterior mid abdomen adjacent sent to the laparotomy site likely due to inflammation/adhesion. #2 Right colon lesion, suprapubic sebaceous cyst with open right colectomy with excision of the suprapubic sebaceous cyst and lysis of adhesions on 07/13/2017. #3 Wound dehiscence with subsequent repair of the fascial dehiscence on 2016. Retention sutures and open wound with packing continue. #4 Acute exacerbation of severe Gold stage IV chronic obstructive pulmonary disease with an FEV1 value of 27% of predicted. #5 Rheumatoid arthritis. #6 Essential hypertension. Plan: Patient had 2 bowel movements today. Denies nausea or vomiting. Active bowel sounds. She remains stable from the pulmonary standpoint. We'll continue with her pulmonary medications including DuoNeb inhalations 4 times a day and when necessary, Perforomist and Pulmicort inhalations twice a day, Singulair and IV Solu-Medrol. Continue Zosyn. She is on heparin for DVT prophylaxis. Protonix for GI prophylaxis. We will increase her activity as tolerated. The plan is for conservative treatment of her small bowel obstruction. She'll remain nothing by mouth for now. We will continue to follow and make further recommendations based on her clinical status. I performed a history & physical examination of the patient and discussed their management with my nurse practitioner, Savanah Mart. I reviewed the nurse practitioner's note and agree with the documented findings and plan of care. Lung sounds equal air entry bilaterally with scattered expiratory wheezing, but no chest congestion or rhonchi. I attest to the documentation by the nurse practitioner
[2017-08-18] MEDS: MULTIVITAMINS, THERA 1 EACH TAB PO SCH (09:01)
[2017-08-18] MEDS: HEPARIN SODIUM,PORCINE 5,000 UNIT/ML 1 ML VIAL SQ SCH ×2 (09:03→16:49)
[2017-08-18] MEDS: methylPREDNISolone SOD SUCCI 40 MG/ML 1 ML VIAL IV SCH (09:03)
[2017-08-18] MEDS: FUROSEMIDE 40 MG TAB PO SCH (09:04)
[2017-08-18] MEDS: PIPERACILLIN-TAZOBACTAM 3.375 GM in DEXTROSE/WATER 1 50ML.BAG IVPB SCH ×2 (09:04→16:50)
[2017-08-18] MEDS: LISINOPRIL 20 MG TAB PO SCH (09:04)
[2017-08-18] MEDS: PANTOPRAZOLE 40 MG/10 ML VIAL IV SCH (09:12)
[2017-08-18] MEDS: HYDROcodone/APAP 10-325MG 1 EACH TAB PO PRN ×3 (10:23→20:12)
--- NOTE | 2017-08-18 12:06 | P.PN ---
Subjective Progress Note Date: 08/18/17 Patient seen and examined at bedside. She states she is feeling much better than previously. She states that she had 8 or 9 bowel movements. She states for the more solid and the rest were loose. She states her abdominal pain has resolved. She states that although she was on ice chips she allow them to melt and drank the water and tolerated it. She denies any nausea and vomiting. She denies any fevers, chills, chest pain or shortness of breath. Objective - Vital Signs Vital signs: Vital Signs Temp 98.3 F 08/18/17 07:00 Pulse 79 08/18/17 08:49 Resp 18 08/18/17 08:49 BP 139/61 08/18/17 07:00 Pulse Ox 95 08/18/17 07:00 Intake & Output 08/17/17 08/18/17 08/18/17 18:59 06:59 18:59 Intake Total 500 1480 Balance 500 1480 Weight 70 kg 70 kg Intake: IV 500 1380 Sodium Chloride 0.9% 1, 500 1380 000 ml @ 120 mls/hr IV . Q8H20M [facility] Rx#:[id number] Intake, IV Titration 100 Amount Piperacillin-Tazobactam 3 100 .375 gm In Dextrose/Water 1 50ml.bag @ 12.5 mls/hr IVPB Q8HR [facility] Rx#: [id number] Other: Voiding Method Toilet Toilet # Voids 1 1 - Constitutional General appearance: Present: average body habitus, cooperative, no acute distress - EENT Eyes: Present: EOMI, PERRLA ENT: Present: hearing grossly normal - Neck Neck: Present: normal ROM - Respiratory Details: No difficulty with respiration - Cardiovascular Rhythm: regular Heart sounds: normal: S1, S2 - Gastrointestinal Gastrointestinal Comment(s): Soft, nontender, nondistended, no rebound, no guarding, incision site healing well - Integumentary Integumentary: Present: normal turgor - Musculoskeletal Musculoskeletal: Present: gait normal - Psychiatric Psychiatric: Present: A&O x's 3, appropriate affect, intact judgment & insight - Labs CBC & Chem 7: 08/18/17 06:40 08/18/17 06:40 Labs: Abnormal Lab Results - Last 24 Hours (Table) 08/18/17 08/18/17 Range/Units 06:40 06:40 WBC 14.3 H (3.8-10.6) k/uL RBC 3.21 L (3.80-5.40) m/uL Hgb 10.4 L (11.4-16.0) gm/dL Hct 33.4 L (34.0-46.0) % MCV 104.1 H (80.0-100.0) fL Neutrophils # 10.4 H (1.3-7.7) k/uL Monocytes # 1.2 H (0-1.0) k/uL Potassium 3.3 L (3.5-5.1) mmol/L Chloride 109 H (98-107) mmol/L Glucose 69 L (74-99) mg/dL Microbiology - Last 24 Hours (Table) 08/15/17 01:32 Blood Culture - Preliminary Blood No Growth after 72 hours Assessment and Plan (1) Small bowel obstruction Current Visit: Yes Status: Acute Code(s): K56.609 - SNOMED Code(s): 492508419 Plan: Impression Present on admission abdominal pain suspect due to a partial small bowel obstruction likely inflammatory at the anterior abdominal wall closure no hernia Rheumatoid arthritis Hypertension essential Acute exacerbation of severe ,gold stage 1v chronic obstructive pulmonary disease Recent Right colon lesion with open right colectomy lysis of adhesions 2016 Wound dehiscence with subsequent repair of the fascia July 21 2017 with retention sutures an open wound with packing Remote history of nicotine dependency quit in 1999 Chronic pain with narcotic dependency Plan The patient did have bowel function. We will advance to clear liquid diet for lunch and possibly advance as tolerated. Abdominal x-ray reviewed. Dissection was performed prior to the patient having bowel function. Continue with conservative management Continue current pain regimen Encourage patient to ambulate in the cardoso Leukocytosis likely secondary to steroids Pulmonary recommendations Respiratory treatments as ordered Wound care as ordered DVT and GI prophylaxis Continue IV Zosyn as ordered
[2017-08-18] MEDS: SODIUM CHLORIDE 0.9% 1,000 ML IV SCH ×2 (16:51→20:13)
[2017-08-18] MEDS: MONTELUKAST 10 MG TAB PO SCH (20:14)
[2017-08-18] MEDS: TEMAZEPAM 7.5 MG CAP PO PRN (22:25)
[2017-08-19] MEDS: HEPARIN SODIUM,PORCINE 5,000 UNIT/ML 1 ML VIAL SQ SCH ×3 (00:27→15:04)
[2017-08-19] MEDS: HYDROcodone/APAP 10-325MG 1 EACH TAB PO PRN ×5 (00:27→22:55)
[2017-08-19] MEDS: SODIUM CHLORIDE 0.9% 1,000 ML IV SCH ×3 (00:28→21:28)
[2017-08-19] MEDS: PIPERACILLIN-TAZOBACTAM 3.375 GM in DEXTROSE/WATER 1 50ML.BAG IVPB SCH ×2 (00:28→09:00)
--- NOTE | 2017-08-19 01:09 | P.PN ---
Subjective Progress Note Date: 08/18/17 Principal diagnosis: Small bowel obstruction Interval history:Patient is a 62-year-old female with a known history of rheumatoid arthritis and advanced COPD with recent history of partial colectomy due to colon polyp came to the hospital complains of abdominal pain cramping started yesterday evening. Patient denied any fever or chills. No blood in the stool. Patient also nauseated area or so vomiting. Patient recently had a complicated hospital course after partial colectomy. Patient had wound lesions and was taken back to or for repeat and was also treated for COPD at the time patient was subsequently discharged with much improvement and has been doing well until last evening. Patient had CT of the abdominal pelvis done in the ER showed sinus of partial small bowel obstruction. Patient was seen by Dr. Stewart and currently patient is being managed conservatively with IV fluids and nothing by mouth. Does have multiple medical problems and comorbid conditions. Denied any chest pain or short of breath. 08/16/2017 NPO, maintained on IV fluid hydration, Zosyn, nebulized bronchodilators and IV steroids. no flatus, no bowel movement diffuse abdominal pain across bilateral upper quadrants positive nausea without emesis. Abdominal x-rays performed reporting solitary dilated small bowel loops with air -fluid level, suggestive continue obstructive changes; unchanged from prior exam. Denies chest pain, palpitations or increasing shortness of breath. Afebrile. 08/17/2017. Maintained on IV fluids. NPO. Passing no flatus, complains of mild nausea without emesis . Hypoactive bowel sounds. Complains of cramping discomfort throughout all quadrants. WBC up to 11.9, T-max 99.1. Abdominal x- ray today suggestive of worsening small bowel obstruction. Better pain control with addition of Toradol. Denies chest pain, palpitations or increased shortness of breath. 08/18/2017 Patient did improve clinically. Patient had bowel movement today. Obstruction relieved. No commerce of chest pain or short of breath. Patient was started on diet and advance as tolerated. No other acute overnight issues. All other review of systems negative Current medications reviewed. Objective - Vital Signs Vital signs: Vital Signs Temp 98.1 F 08/18/17 15:30 Pulse 76 08/18/17 19:55 Resp 16 08/18/17 15:30 BP 152/68 08/18/17 15:30 Pulse Ox 98 08/18/17 15:30 Intake & Output 08/18/17 08/18/17 08/19/17 06:59 18:59 06:59 Intake Total 1480 1560 Balance 1480 1560 Weight 70 kg Intake: IV 1380 Sodium Chloride 0.9% 1, 1380 000 ml @ 120 mls/hr IV . Q8H20M [facility] Rx#:[id number] Intake, IV Titration 100 960 Amount Piperacillin-Tazobactam 3 100 .375 gm In Dextrose/Water 1 50ml.bag @ 12.5 mls/hr IVPB Q8HR [facility] Rx#: [id number] Sodium Chloride 0.9% 1, 960 000 ml @ 120 mls/hr IV . Q8H20M [facility] Rx#:[id number] Oral 600 Other: Voiding Method Toilet # Voids 1 # Bowel Movements 4 - Exam PHYSICAL EXAMINATION: Patient is lying in the bed comfortably, no acute distress, awake alert and oriented.. HEENT: Normocephalic. Neck is supple. Pupils reactive. Nostrils clear. Oral cavity is moist. Ears reveal no drainage. Neck reveals no JVD, carotid bruits, or thyromegaly. CHEST EXAMINATION: Trachea is central. Symmetrical expansion. Decreased air entry bilateral basally. Minimal expiratory wheeze. CARDIAC: Normal S1, S2 with no gallops. No murmurs ABDOMEN: Soft. Bowel sounds normal. No organomegaly. No abdominal bruits. Surgical wound intact Extremities: reveal no edema. No clubbing or cyanosis Neurologically awake, alert, oriented x3 with well-coordinated movements. No focal deficits noted Skin: No rash or skin lesions. Psychiatric: Operative. Nonsuicidal Musculoskeletal: No joint swelling or deformity. Normal range of motion. - Labs CBC & Chem 7: 08/18/17 06:40 08/18/17 06:40 Labs: Abnormal Lab Results - Last 24 Hours (Table) 08/18/17 08/18/17 Range/Units 06:40 06:40 WBC 14.3 H (3.8-10.6) k/uL RBC 3.21 L (3.80-5.40) m/uL Hgb 10.4 L (11.4-16.0) gm/dL Hct 33.4 L (34.0-46.0) % MCV 104.1 H (80.0-100.0) fL Neutrophils # 10.4 H (1.3-7.7) k/uL Monocytes # 1.2 H (0-1.0) k/uL Potassium 3.3 L (3.5-5.1) mmol/L Chloride 109 H (98-107) mmol/L Glucose 69 L (74-99) mg/dL Microbiology - Last 24 Hours (Table) 08/15/17 01:32 Blood Culture - Preliminary Blood No Growth after 72 hours Assessment and Plan Assessment: #1 abdominal pain secondary to small bowel obstruction at the recent surgical site. Possible adhesion/inflammation. Improved #2 right colon lesion status post partial colectomy about a month back and followed by wound dehiscence and repair #3 acute COPD exacerbation gold stage IV criteria #4 rheumatoid arthritis #5 hypertension #6 DVT prophylaxis Plan: Bowel obstruction relieved. Patient did have bowel movements. Started on liquid diet and advance as tolerated. General surgery is on board. Encouraged ambulation and IV hydration. For COPD exacerbation patient be continued on dual nebs and Pulmicort along with IV steroids. Pulmonary was consulted as well. We'll continue to follow closely and further recommendations based on the clinical course.
[2017-08-19] MEDS: BUDESONIDE 1 MG/2 ML NEBU INHALATION SCH (06:45)
[2017-08-19] MEDS: IPRATROPIUM-ALBUTEROL 3 ML NEB INHALATION SCH ×4 (06:45→20:19)
[2017-08-19] MEDS: FORMOTEROL FUMARATE 20 MCG/2 ML NEBU INHALATION SCH (06:45)
[2017-08-19] MEDS: FUROSEMIDE 40 MG TAB PO SCH (09:00)
[2017-08-19] MEDS: LISINOPRIL 20 MG TAB PO SCH (09:00)
[2017-08-19] MEDS: methylPREDNISolone SOD SUCCI 40 MG/ML 1 ML VIAL IV SCH (09:00)
[2017-08-19] MEDS: PANTOPRAZOLE 40 MG/10 ML VIAL IV SCH (09:00)
[2017-08-19] MEDS: MULTIVITAMINS, THERA 1 EACH TAB PO SCH (09:01)
--- NOTE | 2017-08-19 12:43 | P.PN ---
Subjective Progress Note Date: 08/19/17 Patient seen and examined at bedside. She has been ambulating throughout the hallways. She states her pain is greatly improved. She is continued to have bowel function. She states the main pain that she feels is on the right side of her incision. She denies any fevers, chills, chest pain or shortness of breath. Objective - Vital Signs Vital signs: Vital Signs Temp 99.3 F 08/19/17 07:00 Pulse 68 08/19/17 11:13 Resp 16 08/19/17 07:00 BP 146/63 08/19/17 07:00 Pulse Ox 95 08/19/17 07:00 Intake & Output 08/18/17 08/19/17 08/19/17 18:59 06:59 18:59 Intake Total 1560 1010 Balance 1560 1010 Weight 70 kg Intake: IV 960 Sodium Chloride 0.9% 1, 960 000 ml @ 120 mls/hr IV . Q8H20M LATESHA Rx#:[id number] Intake, IV Titration 960 50 Amount Piperacillin-Tazobactam 3 50 .375 gm In Dextrose/Water 1 50ml.bag @ 12.5 mls/hr IVPB Q8HR LATESHA Rx#: [id number] Sodium Chloride 0.9% 1, 960 000 ml @ 120 mls/hr IV . Q8H20M LATESHA Rx#:[id number] Oral 600 Other: # Voids 4 # Bowel Movements 4 - Constitutional General appearance: Present: cooperative, no acute distress - EENT Eyes: Present: EOMI, PERRLA ENT: Present: hearing grossly normal - Neck Neck: Present: normal ROM. Absent: lymphadenopathy, stridor - Respiratory Details: No difficulty with respiration - Cardiovascular Rhythm: regular Heart sounds: normal: S1, S2 - Gastrointestinal Gastrointestinal Comment(s): Soft, appropriate tenderness, nondistended, no rebound, no guarding, retention sutures are in place and are clean dry and intact - Integumentary Integumentary: Present: normal turgor - Musculoskeletal Musculoskeletal: Present: gait normal, strength equal bilaterally - Psychiatric Psychiatric: Present: A&O x's 3, appropriate affect, intact judgment & insight - Labs CBC & Chem 7: 08/18/17 06:40 08/18/17 06:40 Labs: Microbiology - Last 24 Hours (Table) 08/15/17 01:32 Blood Culture - Preliminary Blood No Growth after 96 hours Assessment and Plan (1) Small bowel obstruction Current Visit: Yes Status: Acute Code(s): K56.609 - SNOMED Code(s): 663008574 Plan: Impression Present on admission abdominal pain suspect due to a partial small bowel obstruction likely inflammatory at the anterior abdominal wall closure no hernia Rheumatoid arthritis Hypertension essential Acute exacerbation of severe ,gold stage 1v chronic obstructive pulmonary disease Recent Right colon lesion with open right colectomy lysis of adhesions 2016 Wound dehiscence with subsequent repair of the fascia July 21 2017 with retention sutures an open wound with packing Remote history of nicotine dependency quit in 1999 Chronic pain with narcotic dependency Plan The patient continues to have bowel function. Continue soft diet Continue with conservative management Continue current pain regimen Encourage patient to ambulate in the cardoso Leukocytosis likely secondary to steroids Pulmonary recommendations Respiratory treatments as ordered Wound care as ordered DVT and GI prophylaxis Discharge planning
[2017-08-19] MEDS: MONTELUKAST 10 MG TAB PO SCH (21:28)
[2017-08-19] MEDS: TEMAZEPAM 7.5 MG CAP PO PRN (21:28)
[2017-08-20] MEDS: SODIUM CHLORIDE 0.9% 1,000 ML IV SCH (00:39)
[2017-08-20] MEDS: HEPARIN SODIUM,PORCINE 5,000 UNIT/ML 1 ML VIAL SQ SCH ×2 (00:39→08:27)
[2017-08-20] MEDS: HYDROcodone/APAP 10-325MG 1 EACH TAB PO PRN ×2 (03:19→13:37)
[2017-08-20] MEDS: IPRATROPIUM-ALBUTEROL 3 ML NEB INHALATION SCH ×3 (07:24→15:29)
[2017-08-20] MEDS: BUDESONIDE 1 MG/2 ML NEBU INHALATION SCH (07:24)
[2017-08-20] MEDS: FORMOTEROL FUMARATE 20 MCG/2 ML NEBU INHALATION SCH (07:25)
[2017-08-20] MEDS: PANTOPRAZOLE 40 MG/10 ML VIAL IV SCH ×2 (08:26→08:27)
[2017-08-20] MEDS: LISINOPRIL 20 MG TAB PO SCH (08:27)
[2017-08-20] MEDS: FUROSEMIDE 40 MG TAB PO SCH (08:27)
[2017-08-20] MEDS: MULTIVITAMINS, THERA 1 EACH TAB PO SCH (08:27)
[2017-08-20] MEDS: methylPREDNISolone SOD SUCCI 40 MG/ML 1 ML VIAL IV SCH (08:28)
--- NOTE | 2017-08-20 10:01 | P.PN ---
<Chapis Ramirez - Last Filed: 08/20/17 09:47> Subjective Progress Note Date: 08/20/17 62-year-old female seen and examined at bedside. Patient currently is up ambulating in the cardoso and in the room. Patient states feels ready to be discharged anxious to go home states abdominal pain has resolved. Patient states that she has had a bowel movement and tolerating a diet. There's been no fever chills. Patient is afebrile Recent 07/13/2017 right colon lesion with an open right colectomy lysis of adhesions subsequent wound dehiscence with repair July 21 with retention sutures placed with open wound packing Objective - Vital Signs Vital signs: Vital Signs Temp 98 F 08/20/17 01:15 Pulse 68 08/20/17 07:52 Resp 16 08/20/17 01:15 BP 159/66 08/20/17 01:15 Pulse Ox 98 08/20/17 01:15 Intake & Output 08/19/17 08/20/17 08/20/17 18:59 06:59 18:59 Intake Total 960 1160 Output Total 600 Balance 960 560 Intake: IV 960 960 Sodium Chloride 0.9% 1, 960 960 000 ml @ 120 mls/hr IV . Q8H20M LATESHA Rx#:[id number] Oral 200 Output: Urine 600 Other: # Voids 3 - Exam Physical exam 62-year-old female seen and examined up sitting on the edge of the bed states that she has just been up ambulating in the hallway Lungs essentially clear with adequate air movement no wheezing rales or rhonchi noted Heart S1-S2 audible regular denying chest pain Abdomen abdominal binder removed surgical dressing dry [address] packing to the surgical sites no redness noted no odor no drainage soft not distended nontender states abdominal discomfort resolved reports tolerating diet with no nausea no vomiting Extremities no edema noted - Labs CBC & Chem 7: 08/18/17 06:40 08/18/17 06:40 Labs: Microbiology - Last 24 Hours (Table) 08/15/17 01:32 Blood Culture - Preliminary Blood No Growth after 120 hours Assessment and Plan Plan: Impression Present on admission abdominal pain suspect due to a partial small bowel obstruction likely inflammatory at the anterior abdominal wall closure no hernia Rheumatoid arthritis Hypertension essential Acute exacerbation of severe ,gold stage 1v chronic obstructive pulmonary disease Recent Right colon lesion with open right colectomy lysis of adhesions 2016 Wound dehiscence with subsequent repair of the fascia July 21 2017 with retention sutures an open wound with packing Remote history of nicotine dependency quit in 1999 Chronic pain with narcotic dependency Plan Prepped for probable discharge Okay to be discharged from pulmonary service Continue with conservative management Restart home dose [place] Encourage patient to ambulate in the cardoso Pain control Discharge on oral prednisone taper Respiratory treatments as ordered Wound care as ordered DVT and GI prophylaxis The above impression and plan of care have been discussed and directed by signing physician. Chapis Ramirez nurse practitioner acting as scribe for signing physician. <Brenden Burger - Last Filed: 08/22/17 12:20> Objective - Vital Signs Vital signs: Vital Signs Temp 98.4 F 08/20/17 07:00 Pulse 77 08/20/17 15:40 Resp 17 08/20/17 15:00 BP 149/71 08/20/17 15:00 Pulse Ox 94 L 08/20/17 15:00 - Labs CBC & Chem 7: 08/20/17 09:22 08/20/17 09:22 Assessment and Plan (1) Small bowel obstruction Status: Acute Code(s): K56.609 - SNOMED Code(s): 855287190
[2017-08-20 10:10] LABS: ALT 40 U/L (9-52); AST 19 U/L (14-36); Alkaline Phosphatase 72 U/L (38-126); Anion Gap 9 mmol/L; Blood Urea Nitrogen 12 mg/dL (7-17); Calcium 8.6 mg/dL (8.4-10.2); Carbon Dioxide 27 mmol/L (22-30); Chloride 106 mmol/L (98-107); Glucose 87 mg/dL (74-99); Non-African American GFR(MDRD) >60 (>60 ml/min/1.73 sqM); Sodium 142 mmol/L (137-145); Total Bilirubin 0.2 mg/dL (0.2-1.3); Total Protein 5.6 g/dL (6.3-8.2)
[2017-08-20 10:14] LABS: Basophils % (A) 0 %; CH 31.9; CHCM 30.6; Eosinophils # (A) 0.1 k/uL (0-0.7); Eosinophils % (A) 1 %; HCT 32.6 % (34.0-46.0); HDW 2.65; HGB 10.1 gm/dL (11.4-16.0); Hypochromasia Moderate; Luc # (Auto) 0.11; Luc % (Auto) 1; Lymphocytes # (A) 3.3 k/uL (1.0-4.8); Lymphocytes % (A) 26 %; MCH 32.4 pg (25.0-35.0); MCHC 30.8 g/dL (31.0-37.0); MCV 105.2 fL (80.0-100.0); Macrocytosis Moderate; Mean Platelet Volume 7.4; Monocytes # (A) 0.8 k/uL (0-1.0); Monocytes % (A) 6 %; Neutrophils # (A) 8.5 k/uL (1.3-7.7); Neutrophils % (A) 67 %; RDW 14.6 % (11.5-15.5); WBC 12.7 k/uL (3.8-10.6); WBC (Perox) 12.89
[2017-08-20 10:17] LABS: Potassium 2.9 mmol/L (3.5-5.1)
[2017-08-20] MEDS ORDERED: Magnesium Replacement Protocol 1 EACH MISC MISCELLANE PRN (10:22)
[2017-08-20 10:23] VITALS: TEMP 98.4
[2017-08-20] MEDS ORDERED: MAGNESIUM OXIDE 400 MG TAB PO STA (11:27)
--- NOTE | 2017-08-20 11:51 | P.DS ---
<Chapis Ramirez - Last Filed: 08/20/17 11:25> Providers Date of admission: 08/15/17 05:56 Expected date of discharge: 08/20/17 Attending physician: Brenden Burger Consults: 08/15/17 12:16 Consult Physician Routine Consulting Provider: Clarita Ibrahim Consult Reason/Comments: COPD Do you want consulting provider notified?: Yes 08/15/17 12:18 Consult Physician Routine Consulting Provider: Darrius Cook Consult Reason/Comments: Medical management Do you want consulting provider notified?: Yes Primary care physician: Maryana Galindo [facility] Course: 62-year-old female presented on the day of admission to the emergency room with a chief complaint of experiencing mild abdominal bloating with diffuse abdominal discomfort onset 2 days prior. Patient stated she felt nauseated but did not vomit. States that she been having a bowel movement every 1-2 times daily but prior to this event her last bowel movement was 2 days prior. Appetite had been diminished. White count was slightly elevated. Was noted that the patient was on oral steroids at home which could contributed to her elevated white count. CAT scan of the abdomen and pelvis showed changes suspicious for a partial small bowel obstruction no hernia seen. Subsequent the patient was admitted bowel rest initiated IV fluid for hydration patient was treated conservatively. Initiated on a nothing by mouth diet. Patient was followed by pulmonary and the hospitalist service Dr. Calixto's group. Pain control issues addressed. Over the course of the hospitalization the symptoms significantly improved. Patient had repeat abdominal x-rays which did show a improvement. There was no evidence of any free air. The diet was slowly advanced. on the day of discharge patient was tolerating a soft diet was anxious to be discharged stated the abdominal pain had resolved patient was up ambulating in the hallway with no abdominal pain. The day of discharge the white count was 12.7. On August 18 14.3. Electrolytes were replaced. Potassium was 2.9 with the mag 1.4. These were addressed prior to discharge. From all consulting physicians patient was felt to be appropriate proceed with a discharge to home counter caser resume patient's home care On the day of discharge patient's suture line showed no evidence of any redness [address] The upper and lower incision line packing in place no odor noted abdominal binder on Impression discharge diagnosis Present on admission abdominal pain suspect due to a partial small bowel obstruction likely inflammatory at the anterior abdominal wall closure no hernia Rheumatoid arthritis Hypertension essential Acute exacerbation of severe ,gold stage 1v chronic obstructive pulmonary disease Recent Right colon lesion with open right colectomy lysis of adhesions 2016 Wound dehiscence with subsequent repair of the fascia July 21 2017 with retention sutures an open wound with packing Remote history of nicotine dependency quit in 1999 Chronic pain with narcotic dependency Electrolyte abnormality hypo-magnesium, hypokalemia The above impression and plan of care have been discussed and directed by signing physician. Chapis Ramirez nurse practitioner acting as scribe for signing physician. Patient Condition at Discharge: Stable Plan - Discharge Summary Discharge Rx Participant: Yes New Discharge Prescriptions: New predniSONE 20 mg PO DAILY #12 tab Magnesium Gluconate [Magonate] 500 mg PO DAILY #30 tablet Potassium Chloride ER [K-Dur 20] 20 meq PO DAILY #30 tab Continue Hydrocodone/Acetaminophen [Hydrocodon-Acetaminophn 10-325] 1 tab PO Q4H PRN PRN Reason: Pain Benazepril HCl 20 mg PO QAM Furosemide [Lasix] 40 mg PO DAILY Montelukast [Singulair] 10 mg PO HS Budesonide [Pulmicort] 0.5 mg INHALATION RT-DAILY Formoterol Fumarate [Perforomist] 20 mcg INHALATION RT-DAILY Ipratropium Nebulized [Atrovent Nebulized] 0.5 mg INHALATION RT-HS Etanercept [Enbrel] 50 mg SQ [id number] PRN PRN Reason: arthritis Polyethylene Glycol 3350 [Miralax] 17 gm PO DAILY PRN PRN Reason: Constipation Multivit-Min/FA/Lycopen/Lutein [Centrum Silver Tablet] 1 tab PO DAILY Nicotine [Nicotrol] 10 mg INHALATION Q4H PRN PRN Reason: Nicotine Cravings Dextroamphetamine/Amphetamine [Dextroamp-Amphetamin 20 mg Tab] 20 mg PO DAILY amLODIPine [Norvasc] 5 mg PO DAILY Discharge Medication List Benazepril HCl 20 mg PO QAM 01/24/16 [History] Hydrocodone/Acetaminophen [Hydrocodon-Acetaminophn 10-325] 1 tab PO Q4H PRN [History] Budesonide [Pulmicort] 0.5 mg INHALATION RT-DAILY 05/31/17 [History] Formoterol Fumarate [Perforomist] 20 mcg INHALATION RT-DAILY 05/31/17 [History] Furosemide [Lasix] 40 mg PO DAILY 05/31/17 [History] Ipratropium Nebulized [Atrovent Nebulized] 0.5 mg INHALATION RT-HS 05/31/17 [ History] Montelukast [Singulair] 10 mg PO HS 05/31/17 [History] Etanercept [Enbrel] 50 mg SQ [id number] PRN 07/12/17 [History] Multivit-Min/FA/Lycopen/Lutein [Centrum Silver Tablet] 1 tab PO DAILY 07/12/17 [ History] Polyethylene Glycol 3350 [Miralax] 17 gm PO DAILY PRN 07/12/17 [History] Dextroamphetamine/Amphetamine [Dextroamp-Amphetamin 20 mg Tab] 20 mg PO DAILY [History] Nicotine [Nicotrol] 10 mg INHALATION Q4H PRN 08/15/17 [History] amLODIPine [Norvasc] 5 mg PO DAILY 08/15/17 [History] Magnesium Gluconate [Magonate] 500 mg PO DAILY #30 tablet 08/20/17 [Rx] Potassium Chloride ER [K-Dur 20] 20 meq PO DAILY #30 tab 08/20/17 [Rx] predniSONE 20 mg PO DAILY #12 tab 08/20/17 [Rx] Follow up Appointment(s)/Referral(s): Brenden Burger MD [Medical Doctor] - 08/23/17 10:15 am Meryl Mijares MD [Primary Care Provider] - 08/24/17 10:40 am [facility], [NON-STAFF] - Jose Elias Goodman MD [STAFF PHYSICIAN] - 09/06/17 2:00 pm Ambulatory/Diagnostic Orders: Comprehensive Metabolic Panel [LAB.AMB] Time Frame: 08/23/17, Location: Determined By Patient Magnesium [LAB.AMB] Location: Determined By Patient Activity/Diet/Wound Care/Special Instructions: No lifting over 4 pounds Wear abdominal binder for support No driving a car while taking [place] Notify the attending of any redness or drainage at surgical site Continue with the current wound care packing daily Notified of any fever chills increased abdominal pain Care Plan Goals (MU): retention sutures will be removed this week in a follow-up visit at Dr. Burger' s office Discharge Disposition: HOME WITH HOME HEALTH SERVICES <Brenden Burger - Last Filed: 08/20/17 18:14> - Discharge Diagnosis(es) (1) Small bowel obstruction Status: Acute Hospital Course: As above. Patient doing well. Tolerating diet. Good bowel function. Will follow-up in the office with me later this week. Stable for discharge.
--- NOTE | 2017-08-20 11:54 | P.PN ---
Subjective Progress Note Date: 08/20/17 Progress note being dictated for Dr. Cook Interval history:Patient is a 62-year-old female with a known history of rheumatoid arthritis and advanced COPD with recent history of partial colectomy due to colon polyp came to the hospital complains of abdominal pain cramping started yesterday evening. Patient denied any fever or chills. No blood in the stool. Patient also nauseated area or so vomiting. Patient recently had a complicated hospital course after partial colectomy. Patient had wound lesions and was taken back to or for repeat and was also treated for COPD at the time patient was subsequently discharged with much improvement and has been doing well until last evening. Patient had CT of the abdominal pelvis done in the ER showed sinus of partial small bowel obstruction. Patient was seen by Dr. Stewart and currently patient is being managed conservatively with IV fluids and nothing by mouth. Does have multiple medical problems and comorbid conditions. Denied any chest pain or short of breath. 08/16/2017 NPO, maintained on IV fluid hydration, Zosyn, nebulized bronchodilators and IV steroids. no flatus, no bowel movement diffuse abdominal pain across bilateral upper quadrants positive nausea without emesis. Abdominal x-rays performed reporting solitary dilated small bowel loops with air -fluid level, suggestive continue obstructive changes; unchanged from prior exam. Denies chest pain, palpitations or increasing shortness of breath. Afebrile. 08/17/2017. Maintained on IV fluids. NPO. Passing no flatus, complains of mild nausea without emesis . Hypoactive bowel sounds. Complains of cramping discomfort throughout all quadrants. WBC up to 11.9, T-max 99.1. Abdominal x- ray today suggestive of worsening small bowel obstruction. Better pain control with addition of Toradol. Denies chest pain, palpitations or increased shortness of breath. 08/20/2017 doing well, tolerating soft diet with no nausea or vomiting. Positive bowel movement. States minimal abdominal discomfort. Ambulating in hallway, tolerating exertion well. Afebrile. Potassium and magnesium currently being supplemented. Objective - Vital Signs Vital signs: Vital Signs Temp 98.4 F 08/20/17 07:00 Pulse 68 08/20/17 07:52 Resp 15 08/20/17 08:00 BP 154/75 08/20/17 07:00 Pulse Ox 100 08/20/17 07:00 Intake & Output 08/19/17 08/20/17 08/20/17 18:59 06:59 18:59 Intake Total 960 1160 Output Total 600 Balance 960 560 Intake: IV 960 960 Sodium Chloride 0.9% 1, 960 960 000 ml @ 120 mls/hr IV . Q8H20M LATESHA Rx#:[id number] Oral 200 Output: Urine 600 Other: # Voids 3 - Exam Patient sitting up at side of bed comfortably, no acute distress, awake alert and oriented.. HEENT: Normocephalic. Neck is supple. Pupils reactive. Nostrils clear. Oral cavity is moist. Ears reveal no drainage. Neck reveals no JVD, carotid bruits, or thyromegaly. CHEST EXAMINATION: Trachea is central. Symmetrical expansion. No wheezing. No crackles noted CARDIAC: Normal S1, S2 with no gallops. No murmurs ABDOMEN: Soft, mildly distended, retention sutures present. Positive Bowel sounds normal. No organomegaly. No abdominal bruits. No guarding, no rigidity Extremities: reveal no edema. No clubbing or cyanosis Neurologically awake, alert, oriented x3 with well-coordinated movements. No focal deficits noted Skin: No rash or skin lesions. Psychiatric: Operative. Nonsuicidal Musculoskeletal: No joint swelling or deformity. Normal range of motion. - Labs CBC & Chem 7: 08/20/17 09:22 08/20/17 09:22 Labs: Abnormal Lab Results - Last 24 Hours (Table) 08/20/17 08/20/17 Range/Units 09:22 09:22 WBC 12.7 H (3.8-10.6) k/uL RBC 3.10 L (3.80-5.40) m/uL Hgb 10.1 L (11.4-16.0) gm/dL Hct 32.6 L (34.0-46.0) % MCV 105.2 H (80.0-100.0) fL MCHC 30.8 L (31.0-37.0) g/dL Neutrophils # 8.5 H (1.3-7.7) k/uL Potassium 2.9 L* (3.5-5.1) mmol/L Total Protein 5.6 L (6.3-8.2) g/dL Albumin 3.1 L (3.5-5.0) g/dL Microbiology - Last 24 Hours (Table) 08/15/17 01:32 Blood Culture - Preliminary Blood No Growth after 120 hours Assessment and Plan Assessment: #1 abdominal pain secondary to small bowel obstruction at the recent surgical site. Possible adhesion/inflammation #2 right colon lesion status post partial colectomy about a month back and followed by wound dehiscence and repair #3 acute COPD exacerbation gold stage IV criteria #4 rheumatoid arthritis #5 hypertension Plan: Plan: Continue on current medication regime, nebulized bronchodilators, IV steroids, monitoring and symptomatic treatment. Discharge planning in progress as per surgery. Pain management as per surgery. Steroid taper. Magnesium and potassium replacements as ordered with recheck outpatient with PCP. The impression and plan of care has been dictated as directed. : I performed a history and examination of this patient, discussed the same with the dictator. I agree with the dictator's note ,documented as a scribe. Any additional findings or plans will be noted.
[2017-08-20] MEDS ORDERED: POTASSIUM CHLORIDE 20 MEQ in WATER FOR INJECTION 1 100ML.BAG IVPB SCH (12:00)
[2017-08-20] MEDS ORDERED: POTASSIUM CHLORIDE ER 20 MEQ TAB.ER PO SCH (12:00)
[2017-08-20] MEDS: POTASSIUM CHLORIDE ER 20 MEQ TAB.ER PO SCH ×2 (12:04→13:38)
[2017-08-20] MEDS: MAGNESIUM SULFATE-D5W PMX 1 GM in DEXTROSE/WATER 1 100ML.BAG IVPB SCH ×2 (12:31→14:35)
[2017-08-20] MEDS ORDERED: INFLUENZA VACCINE (6 MOS+) 60 MCG/0.5 ML SYRINGE IM ONE (12:49)
[2017-08-20 15:02] VITALS: BP 149/71; PULSE 77; RESP 17
--- NOTE | 2017-10-15 23:50 | P.PN ---
Subjective Progress Note Date: 08/19/17 Principal diagnosis: Small bowel obstruction Interval history:Patient is a 62-year-old female with a known history of rheumatoid arthritis and advanced COPD with recent history of partial colectomy due to colon polyp came to the hospital complains of abdominal pain cramping started yesterday evening. Patient denied any fever or chills. No blood in the stool. Patient also nauseated area or so vomiting. Patient recently had a complicated hospital course after partial colectomy. Patient had wound lesions and was taken back to or for repeat and was also treated for COPD at the time patient was subsequently discharged with much improvement and has been doing well until last evening. Patient had CT of the abdominal pelvis done in the ER showed sinus of partial small bowel obstruction. Patient was seen by Dr. Stewart and currently patient is being managed conservatively with IV fluids and nothing by mouth. Does have multiple medical problems and comorbid conditions. Denied any chest pain or short of breath. 08/16/2017 NPO, maintained on IV fluid hydration, Zosyn, nebulized bronchodilators and IV steroids. no flatus, no bowel movement diffuse abdominal pain across bilateral upper quadrants positive nausea without emesis. Abdominal x-rays performed reporting solitary dilated small bowel loops with air -fluid level, suggestive continue obstructive changes; unchanged from prior exam. Denies chest pain, palpitations or increasing shortness of breath. Afebrile. 08/17/2017. Maintained on IV fluids. NPO. Passing no flatus, complains of mild nausea without emesis . Hypoactive bowel sounds. Complains of cramping discomfort throughout all quadrants. WBC up to 11.9, T-max 99.1. Abdominal x- ray today suggestive of worsening small bowel obstruction. Better pain control with addition of Toradol. Denies chest pain, palpitations or increased shortness of breath. 08/18/2017 Patient did improve clinically. Patient had bowel movement today. Obstruction relieved. No commerce of chest pain or short of breath. Patient was started on diet and advance as tolerated. No other acute overnight issues. 08/19/2017 Patient is improving clinically. Bowel obstruction resolved. Tolerating oral diet and advance as tolerated. Encourage ambulation. No overnight issues. All other review of systems negative Current medications reviewed. Objective - Vital Signs Vital signs: Vital Signs Temp 98.3 F 08/19/17 20:38 Pulse 65 08/19/17 20:38 Resp 17 10/22/17 20:38 BP 149/81 08/19/17 20:38 Pulse Ox 96 08/19/17 20:38 Intake & Output 08/19/17 08/19/17 08/20/17 06:59 18:59 06:59 Intake Total 1010 960 200 Output Total 600 Balance 1010 960 -400 Intake: IV 960 960 Sodium Chloride 0.9% 1, 960 960 000 ml @ 120 mls/hr IV . Q8H20M LATESHA Rx#:[id number] Intake, IV Titration 50 Amount Piperacillin-Tazobactam 3 50 .375 gm In Dextrose/Water 1 50ml.bag @ 12.5 mls/hr IVPB Q8HR LATESHA Rx#: [id number] Oral 200 Output: Urine 600 Other: # Voids 4 2 - Exam PHYSICAL EXAMINATION: Patient is lying in the bed comfortably, no acute distress, awake alert and oriented.. HEENT: Normocephalic. Neck is supple. Pupils reactive. Nostrils clear. Oral cavity is moist. Ears reveal no drainage. Neck reveals no JVD, carotid bruits, or thyromegaly. CHEST EXAMINATION: Trachea is central. Symmetrical expansion. Decreased air entry bilateral basally. Minimal expiratory wheeze. CARDIAC: Normal S1, S2 with no gallops. No murmurs ABDOMEN: Soft. Bowel sounds normal. No organomegaly. No abdominal bruits. Surgical wound intact Extremities: reveal no edema. No clubbing or cyanosis Neurologically awake, alert, oriented x3 with well-coordinated movements. No focal deficits noted Skin: No rash or skin lesions. Psychiatric: Operative. Nonsuicidal Musculoskeletal: No joint swelling or deformity. Normal range of motion. - Labs CBC & Chem 7: 08/20/17 09:22 08/20/17 09:22 Labs: Microbiology - Last 24 Hours (Table) 08/15/17 01:32 Blood Culture - Preliminary Blood No Growth after 96 hours Assessment and Plan Assessment: #1 abdominal pain secondary to small bowel obstruction at the recent surgical site. Possible adhesion/inflammation. Improved #2 right colon lesion status post partial colectomy about a month back and followed by wound dehiscence and repair #3 acute COPD exacerbation gold stage IV criteria #4 rheumatoid arthritis #5 hypertension #6 DVT prophylaxis Plan: Bowel obstruction relieved. Patient did have bowel movements. Started on liquid diet and advance as tolerated. General surgery is on board. Encouraged ambulation and IV hydration. For COPD exacerbation patient be continued on dual nebs and Pulmicort along with IV steroids. Pulmonary was consulted as well. We'll continue to follow closely and further recommendations based on the clinical course.
== END 2017-08-20 16:47 | disposition home health service (06) | DRG 389 ==
LOC: EC 00:47 → 3SUR 05:56
PROVIDERS: ADMIT Surgery; ATTEND Surgery
DX: K56.51 Intestinal adhesions [bands], with partial obstruction (principal); F11.20 Opioid dependence, uncomplicated; I10 Essential (primary) hypertension; J44.1 Chronic obstructive pulmonary disease with (acute) exacerbation; E83.42 Hypomagnesemia; F40.240 Claustrophobia; F32.9 Major depressive disorder, single episode, unspecified; M06.9 Rheumatoid arthritis, unspecified; J30.2 Other seasonal allergic rhinitis; E87.6 Hypokalemia; G89.29 Other chronic pain; M85.80 Other specified disorders of bone density and structure, unspecified site; M10.9 Gout, unspecified; Z96.651 Presence of right artificial knee joint; Z88.8 Allergy status to other drugs, medicaments and biological substances; Z79.899 Other long term (current) drug therapy; Z79.51 Long term (current) use of inhaled steroids; Z80.0 Family history of malignant neoplasm of digestive organs; Z80.8 Family history of malignant neoplasm of other organs or systems; Z87.891 Personal history of nicotine dependence; Z90.710 Acquired absence of both cervix and uterus; Z85.89 Personal history of malignant neoplasm of other organs and systems; Z86.69 Personal history of other diseases of the nervous system and sense organs; Z87.01 Personal history of pneumonia (recurrent); Z90.49 Acquired absence of other specified parts of digestive tract; Z87.440 Personal history of urinary (tract) infections; Z79.52 Long term (current) use of systemic steroids; Z85.038 Personal history of other malignant neoplasm of large intestine; Z86.010 Personal history of colon polyps
CPT/HCPCS: 36415; 74020; 74177; 80048; 80053; 81001; 82150; 83605; 83690; 83735; 85025; 87040; 90686; 94640; 94760; 96360; 96361; 96374; 96375; 99285

== ENCOUNTER → 2017-08-23 | Outpatient (CLI) | payer MEDICARE ==
[2017-08-23 13:51] LABS: ALT 31 U/L (9-52); AST 13 U/L (14-36); Alkaline Phosphatase 88 U/L (38-126); Anion Gap 8 mmol/L; Blood Urea Nitrogen 21 mg/dL (7-17); Calcium 9.5 mg/dL (8.4-10.2); Carbon Dioxide 29 mmol/L (22-30); Chloride 103 mmol/L (98-107); Glucose 144 mg/dL (74-99); Non-African American GFR(MDRD) >60 (>60 ml/min/1.73 sqM); Potassium 4.6 mmol/L (3.5-5.1); Sodium 140 mmol/L (137-145); Total Bilirubin 0.3 mg/dL (0.2-1.3); Total Protein 6.7 g/dL (6.3-8.2)
== END | disposition home or self-care (01) ==
LOC: LABWHC1 13:15
DX: E87.8 Other disorders of electrolyte and fluid balance, not elsewhere classified (principal); Z51.81 Encounter for therapeutic drug level monitoring; Z79.899 Other long term (current) drug therapy
CPT/HCPCS: 36415; 80053; 83735

== ENCOUNTER → 2017-09-06 | Outpatient (CLI) | payer MEDICARE ==
--- NOTE | 2017-09-06 16:13 | CT ---
EXAMINATION TYPE: CT angio chest DATE OF EXAM: 09/06/2017 COMPARISON: NONE HISTORY: 62-year-old female SOB and upper back pain. TECHNIQUE: Contiguous axial scanning of the chest performed with IV Contrast, patient injected with 7 0 mL of Omnipaque 350. Coronal/sagittal MIP reconstructions performed. CT DLP: 303.8 mGycm Automated exposure control for dose reduction was used. FINDINGS: The heart is normal size with trace anterior basilar pericardial fluid. Mild coronary vessel calcific ations are present. Mild atherosclerotic arch calcifications. Conventional arch was a branching anatomy and normal calibe r to the aorta. Satisfactory opacification of the pulmonary arterial system without evidence for pulmonary embolus. Scattered nonenlarged mediastinal lymph nodes are present. No thoracic lymphadenopathy by CT size cri teria. Strandy atelectasis at the inferior lingula and peripheral right base. No consolidation or pleural ef fusion. There is moderate diffuse bronchial wall thickening noted. Minimal patchy density in the milagro pheral right upper lobe, axial image 38 and in the anterior left upper lobe, axial image 21 it is unc hanged suggesting some chronic scarring. 3 mm right upper lobe pulmonary nodule axial image 46 is unc hanged compatible with a benign etiology. Bones: Accentuated thoracic kyphosis. Mild endplate spondylosis is present. No osseous destructive p rocess. IMPRESSION: 1. NO EVIDENCE FOR PULMONARY EMBOLUS. 2. MODERATE BRONCHIAL WALL THICKENING. CORRELATE FOR BRONCHITIS OR UNCONTROLLED ASTHMA.
== END | disposition home or self-care (01) ==
LOC: RADCTMAIN 15:29
PROVIDERS: ATTEND Internal Medicine Critical Care Medicine
DX: J98.4 Other disorders of lung (principal); Z86.711 Personal history of pulmonary embolism
CPT/HCPCS: 71275; Q9967

== ENCOUNTER 2017-12-29 11:56 | Inpatient (IN) | payer MEDICARE ==
[2017-12-29] MEDS: IPRATROPIUM 0.5 MG/2.5 ML NEBU INHALATION STA ×2 (12:27→12:57)
[2017-12-29] MEDS: ALBUTEROL NEBULIZED 2.5 MG/3 ML INHALATION STA ×2 (12:27→12:57)
--- NOTE | 2017-12-29 12:46 | ED ---
General Adult HPI - General Chief complaint: Shortness of Breath Stated complaint: DOMI Time Seen by Provider: 12/29/17 12:14 Source: patient, RN notes reviewed, old records reviewed Mode of arrival: wheelchair Limitations: no limitations - History of Present Illness Initial comments: This is a 62-year-old female to the ER for evaluation today. Patient presents ER for evaluation from [facility] office. Patient has history of COPD. Patient has been outpatient treatment for bronchitis, pneumonia with failed success. Patient's symptoms are actually progressing in today worse than they were earlier this week. Patient denies current episodic fevers no chest pain. She does have some back pain related to rib fractures. No recent change in medications - Related Data Home Medications Medication Instructions Recorded Confirmed Benazepril HCl 20 mg PO QAM 01/24/16 12/29/17 Furosemide [Lasix] 40 mg PO DAILY PRN 05/31/17 12/29/17 Montelukast [Singulair] 10 mg PO HS 05/31/17 12/29/17 Etanercept [Enbrel] 50 mg SQ DIRECTED 07/12/17 12/29/17 Dextroamphetamine/Amphetamine 20 mg PO DAILY PRN 08/15/17 12/29/17 [Dextroamp-Amphetamin 20 mg Tab] Albuterol Sulfate [Proair Hfa] 1 - 2 puff INHALATION RT-Q6H PRN 10/27/17 Ibuprofen [Motrin] 800 mg PO Q8H PRN 10/27/17 12/29/17 Multivit-Min/Iron/Folic/Lutein 1 tab PO DAILY 10/28/17 12/29/17 [Centrum Silver Women Tablet] HYDROcodone/APAP 10-325MG [Clarkson 1 tab PO TID PRN 12/29/17 12/29/17 10-325] Lactose-Reduced Food [Boost] 1 can PO DAILY PRN 12/29/17 12/29/17 Naproxen Sodium [Aleve] 220 - 440 mg PO DAILY PRN 12/29/17 12/29/17 Tiotropium 18 Mcg/Puff [Spiriva] 1 cap INHALATION RT-DAILY 12/29/17 12/29/17 guaiFENesin [Mucinex] 600 mg PO Q12HR PRN 12/29/17 12/29/17 Allergies Allergy/AdvReac Type Severity Reaction Status Date / Time infliximab [From Remicade] Allergy Dyspnea/HIV Verified 12/29/17 12:49 ES procaine [From Novocain] Allergy Unknown Verified 12/29/17 12:49 propoxyphene HCl Allergy Unknown Verified 12/29/17 12:49 [From Darvon] Review of Systems ROS Statement: Those systems with pertinent positive or pertinent negative responses have been documented in the HPI. ROS Other: All systems not noted in ROS Statement are negative. Past Medical History Past Medical History: Cancer, COPD, Hypertension, Pneumonia, Rheumatoid Arthritis (RA) Additional Past Medical History / Comment(s): HX RECTAL BLEEDING, CA VULVA, UTI, COLITIS,POLYPS(BENIGN),GOUT,OSTEOPenia ,SINUS/SEASONAL ALLERGIES, CA of appendix History of Any Multi-Drug Resistant Organisms: None Reported Past Surgical History: Hysterectomy, Joint Replacement Additional Past Surgical History / Comment(s): RT KNEE REPLACEMENT, SX TO REMOVE CANCER VULVA,EGD,COLONOSCOPY, LASIK EYE SX Past Anesthesia/Blood Transfusion Reactions: No Reported Reaction Additional Past Anesthesia/Blood Transfusion Reaction / Comment(s): CLAUSTERPHOBIA Past Psychological History: Depression Smoking Status: Former smoker Past Alcohol Use History: None Reported Past Drug Use History: None Reported - Past Family History Father Family Medical History: Cancer Additional Family Medical History / Comment(s): COLON Mother Family Medical History: Cancer Additional Family Medical History / Comment(s): ESOPHAGUS Sister(s) Family Medical History: Cancer Additional Family Medical History / Comment(s): CERVICAL General Exam Limitations: no limitations General appearance: alert, in no apparent distress Head exam: Present: atraumatic, normocephalic, normal inspection Eye exam: Present: normal appearance, PERRL, EOMI. Absent: scleral icterus, conjunctival injection, periorbital swelling ENT exam: Present: normal exam, mucous membranes moist Neck exam: Present: normal inspection. Absent: tenderness, meningismus, lymphadenopathy Respiratory exam: Present: respiratory distress, wheezes, accessory muscle use, decreased breath sounds, prolonged expiratory. Absent: rales, rhonchi, stridor Cardiovascular Exam: Present: regular rate, normal rhythm, normal heart sounds. Absent: systolic murmur, diastolic murmur, rubs, gallop, clicks GI/Abdominal exam: Present: soft, normal bowel sounds. Absent: distended, tenderness, guarding, rebound, rigid Extremities exam: Present: normal inspection, full ROM, normal capillary refill. Absent: tenderness, pedal edema, joint swelling, calf tenderness Back exam: Present: normal inspection Neurological exam: Present: alert, oriented X3, CN II-XII intact Psychiatric exam: Present: normal affect, normal mood Skin exam: Present: warm, dry, intact, normal color. Absent: rash Course Vital Signs 12/29/17 12/29/17 12/29/17 12:01 12:53 12:57 Temperature 98.3 F Pulse Rate 85 77 81 Respiratory 26 H 20 18 Rate Blood Pressure 191/85 143/93 O2 Sat by Pulse 92 L 97 Oximetry 12/29/17 12/29/17 13:16 13:30 Temperature Pulse Rate 90 88 Respiratory 18 18 Rate Blood Pressure O2 Sat by Pulse Oximetry - Reevaluation(s) Reevaluation #1: 12/29/17 14:16 Patient had breathing treatment and we ER, patient mildly improved with current breathing treatment EKG Findings - EKG Comments: EKG Findings:: EKG shows normal sinus rhythm rate of 82, MN 120, QRS 70, QTc 434 Medical Decision Making - Medical Decision Making 62 female the ER for evaluation of shortness of breath, patient with history of severe COPD. Will admit patient for breathing treatments, steroids, completion of outpatient treatment patient has been on antibiotics and breathing treatments with failure - Lab Data Result diagrams: 12/29/17 12:31 12/29/17 13:20 Lab Results 12/29/17 12/29/17 12/29/17 Range/Units 12:31 12:31 13:20 WBC 17.0 H (3.8-10.6) k/uL RBC 4.04 (3.80-5.40) m/uL Hgb 12.7 (11.4-16.0) gm/dL Hct 40.6 (34.0-46.0) % MCV 100.5 H (80.0-100.0) fL MCH 31.5 (25.0-35.0) pg MCHC 31.4 (31.0-37.0) g/dL RDW 14.3 (11.5-15.5) % Plt Count 294 (150-450) k/uL Neutrophils % 83 % Lymphocytes % 9 % Monocytes % 6 % Eosinophils % 2 % Basophils % 0 % Neutrophils # 14.1 H (1.3-7.7) k/uL Lymphocytes # 1.5 (1.0-4.8) k/uL Monocytes # 1.0 (0-1.0) k/uL Eosinophils # 0.4 (0-0.7) k/uL Basophils # 0.0 (0-0.2) k/uL Macrocytosis Slight PT 9.5 (9.0-12.0) sec INR 0.9 (<1.2) APTT 22.1 (22.0-30.0) sec Sodium (137-145) mmol/L Potassium (3.5-5.1) mmol/L Chloride (98-107) mmol/L Carbon Dioxide (22-30) mmol/L Anion Gap mmol/L BUN (7-17) mg/dL Creatinine (0.52-1.04) mg/dL Est GFR (MDRD) Af Amer (>60 ml/min/1.73 sqM) Est GFR (MDRD) Non-Af (>60 ml/min/1.73 sqM) Glucose (74-99) mg/dL Calcium (8.4-10.2) mg/dL Magnesium (1.6-2.3) mg/dL Total Bilirubin (0.2-1.3) mg/dL AST (14-36) U/L ALT (9-52) U/L Alkaline Phosphatase (38-126) U/L Total Creatine Kinase (30-135) U/L CK-MB (CK-2) (0.0-2.4) ng/mL CK-MB (CK-2) Rel Index Troponin I (0.000-0.034) ng/mL NT-Pro-B Natriuret Pep 750 pg/mL Total Protein (6.3-8.2) g/dL Albumin (3.5-5.0) g/dL 12/29/17 12/29/17 Range/Units 13:20 13:20 WBC (3.8-10.6) k/uL RBC (3.80-5.40) m/uL Hgb (11.4-16.0) gm/dL Hct (34.0-46.0) % MCV (80.0-100.0) fL MCH (25.0-35.0) pg MCHC (31.0-37.0) g/dL RDW (11.5-15.5) % Plt Count (150-450) k/uL Neutrophils % % Lymphocytes % % Monocytes % % Eosinophils % % Basophils % % Neutrophils # (1.3-7.7) k/uL Lymphocytes # (1.0-4.8) k/uL Monocytes # (0-1.0) k/uL Eosinophils # (0-0.7) k/uL Basophils # (0-0.2) k/uL Macrocytosis PT (9.0-12.0) sec INR (<1.2) APTT (22.0-30.0) sec Sodium 143 (137-145) mmol/L Potassium 3.1 L (3.5-5.1) mmol/L Chloride 100 (98-107) mmol/L Carbon Dioxide 37 H (22-30) mmol/L Anion Gap 6 mmol/L BUN 20 H (7-17) mg/dL Creatinine 0.60 (0.52-1.04) mg/dL Est GFR (MDRD) Af Amer >60 (>60 ml/min/1.73 sqM) Est GFR (MDRD) Non-Af >60 (>60 ml/min/1.73 sqM) Glucose 93 (74-99) mg/dL Calcium 8.9 (8.4-10.2) mg/dL Magnesium 1.8 (1.6-2.3) mg/dL Total Bilirubin 0.5 (0.2-1.3) mg/dL AST 19 (14-36) U/L ALT 31 (9-52) U/L Alkaline Phosphatase 72 (38-126) U/L Total Creatine Kinase 35 (30-135) U/L CK-MB (CK-2) 1.3 (0.0-2.4) ng/mL CK-MB (CK-2) Rel Index 3.7 Troponin I <0.012 (0.000-0.034) ng/mL NT-Pro-B Natriuret Pep pg/mL Total Protein 5.8 L (6.3-8.2) g/dL Albumin 3.3 L (3.5-5.0) g/dL - Radiology Data Radiology results: report reviewed (Chest x-ray), image reviewed Disposition Clinical Impression: Acute exacerbation of chronic obstructive airways disease, COPD (chronic obstructive pulmonary disease), COPD with acute exacerbation, Failure of outpatient treatment Disposition: ADMITTED IP TO THIS HOSP Condition: Fair Referrals: Meryl Mijares MD [Primary Care Provider] - 1-2 days
[2017-12-29 12:56] LABS: Basophils % (A) 0 %; Eosinophils # (A) 0.4 k/uL (0-0.7); Eosinophils % (A) 2 %; HCT 40.6 % (34.0-46.0); HGB 12.7 gm/dL (11.4-16.0); Lymphocytes # (A) 1.5 k/uL (1.0-4.8); Lymphocytes % (A) 9 %; MCH 31.5 pg (25.0-35.0); MCHC 31.4 g/dL (31.0-37.0); MCV 100.5 fL (80.0-100.0); Macrocytosis Slight; Mean Platelet Volume 9.3; Monocytes % (A) 6 %; Neutrophils # (A) 14.1 k/uL (1.3-7.7); Neutrophils % (A) 83 %; Platelet Count 294 k/uL (150-450); RBC 4.04 m/uL (3.80-5.40); RDW 14.3 % (11.5-15.5)
[2017-12-29] MEDS ORDERED: methylPREDNISolone SOD SUCCI 125 MG/2 ML VIAL IV STA (13:29)
[2017-12-29 13:41] LABS: INR 0.9 (<1.2); Prothrombin Time 9.5 sec (9.0-12.0)
[2017-12-29 13:45] LABS: ALT 31 U/L (9-52); AST 19 U/L (14-36); Albumin 3.3 g/dL (3.5-5.0); Alkaline Phosphatase 72 U/L (38-126); Anion Gap 6 mmol/L; Blood Urea Nitrogen 20 mg/dL (7-17); Calcium 8.9 mg/dL (8.4-10.2); Carbon Dioxide 37 mmol/L (22-30); Chloride 100 mmol/L (98-107); Glucose 93 mg/dL (74-99); Potassium 3.1 mmol/L (3.5-5.1); Sodium 143 mmol/L (137-145); Total Bilirubin 0.5 mg/dL (0.2-1.3); Total Protein 5.8 g/dL (6.3-8.2)
[2017-12-29 13:47] LABS: Creatine Kinase 35 U/L (30-135)
[2017-12-29 13:48] LABS: Partial Thromboplastin Time 22.1 sec (22.0-30.0)
[2017-12-29 14:01] LABS: Creatine Kinase MB 1.3 ng/mL (0.0-2.4); Troponin I <0.012 ng/mL (0.000-0.034)
[2017-12-29] MEDS ORDERED: THIAMINE 100 MG/ML 2 ML VIAL IM STA (14:16)
[2017-12-29] MEDS ORDERED: LORazepam 2 MG/ML INJ IV PRN ×3 (14:16)
[2017-12-29] MEDS ORDERED: LORazepam 2 MG/ML INJ IV STA (14:16)
--- NOTE | 2017-12-29 15:08 | XR ---
EXAMINATION TYPE: XR chest 1V portable DATE OF EXAM: 12/29/2017 COMPARISON: 10/27/2017 INDICATION: Short of breath low O2 sat TECHNIQUE: Single frontal view of the chest is obtained. FINDINGS: The heart size is borderline in size. The pulmonary vasculature is normal. The lungs are clear. IMPRESSION: 1. No acute pulmonary process.
[2017-12-29] MEDS: IPRATROPIUM-ALBUTEROL 3 ML NEB INHALATION SCH ×3 (15:48→19:12)
[2017-12-29] MEDS ORDERED: HYDROcodone/APAP 10-325MG 1 EACH TAB PO ONE (16:14)
[2017-12-29 17:34] VITALS: BMI 29.9
[2017-12-29] MEDS: methylPREDNISolone SOD SUCCI 125 MG/2 ML VIAL IV SCH ×2 (17:35→23:29)
[2017-12-29] MEDS: THIAMINE 100 MG TAB PO SCH (17:35)
[2017-12-29] MEDS ORDERED: Potassium Replacement Protocol 1 EACH MISC MISCELLANE PRN (17:40)
[2017-12-29] MEDS ORDERED: LACTOSE REDUCED FOOD PO PRN (17:51)
[2017-12-29] MEDS ORDERED: AMPHETAMINE PO PRN (17:51)
[2017-12-29] MEDS ORDERED: DEXTROAMPHETAMINE PO PRN (17:51)
[2017-12-29] MEDS ORDERED: NAPROXEN PO PRN (17:51)
[2017-12-29] MEDS ORDERED: [UNRECOGNIZED DRUG - OTHER] PO PRN (17:51)
[2017-12-29] MEDS ORDERED: AZITHROMYCIN 500 MG in SODIUM CHLORIDE 0.9% 250 ML IVPB SCH (18:00)
[2017-12-29] MEDS ORDERED: cefTRIAXone IN SWFI 1,000 MG/10 ML SYRINGE IVP SCH (18:00)
[2017-12-29] MEDS: POTASSIUM CHLORIDE ER 20 MEQ TAB.ER PO SCH ×2 (18:45→20:35)
--- NOTE | 2017-12-29 19:03 | HP ---
HISTORY AND PHYSICAL CHIEF COMPLAINT: Shortness of breath and cough. HISTORY OF PRESENT ILLNESS: This 62-year-old woman with a past medical history of multiple medical problems including COPD, history of hypertension, history of rheumatoid arthritis, being followed by Dr. Mijares in the outpatient setting, not feeling well over the past several weeks. The patient has increasing shortness of breath and coughing. Because of lack of improvement the patient came to [facility] and was admitted for further evaluation and treatment. A chest x-ray done in the ER, which I personally reviewed, showed possible evidence of tracheobronchitis. The patient admitted for further evaluation. There is no history of fever, any rigors, headache, loss of conscious or seizures. PAST MEDICAL HISTORY: COPD, hypertension, pneumonia, history of rheumatoid arthritis. HOME MEDICATIONS: 1. Spiriva 1 puff daily. 2. Multivitamin. 3. Singular 10 mg q.h.s. 4. Powell 10 mg t.i.d. p.r.n. 5. Lasix 40 mg daily p.r.n. 6. Enbrel 50 mg p.r.n. 8. Benazepril 20 mg p.o. q.i.d. 9. Mucinex 600 mg b.i.d. 10.Aleve 222/440 mg daily p.r.n. 11.Boost 1 can p.o. daily p.r.n. 12.Motrin 800 mg q.8h p.r.n. 13.ProAir HFA 1-2 puffs q.4h 6 p.r.n. ALLERGIES: REMICADE, NOVOCAIN AND DARVON. FAMILY HISTORY: History of colon cancer in the family. SOCIAL HISTORY: Previous history of smoking, THC and occasional alcohol. REVIEW OF SYSTEMS: ENT: No diminished hearing or vision. CARDIOVASCULAR: As mentioned earlier. RESPIRATORY: As mentioned. GI: No nausea. : No dysuria. NERVOUS SYSTEM: No numbness, weakness. ALLERGY/IMMUNOLOGY: No asthma or hayfever. MUSCULOSKELETAL: As mentioned HEMATOLOGY: No history of anemia. ENDOCRINE: No history of diabetes or hypothyroid. CONSTITUTIONAL: As mentioned earlier. DERMATOLOGY: Negative. RHEUMATOLOGY: Negative. PSYCHIATRY: As mentioned earlier. PHYSICAL EXAMINATION: Alert, oriented x3. Pulse 97, blood pressure 167/76, respirations 18, temperature 99.1, pulse ox 98% on 2 L. HEENT: Conjunctivae pale. Oral mucosa moist. NECK: No jugular venous distention. No carotid bruit. No lymph node enlargement. CARDIOVASCULAR: S1, S2. No S3, no S4. RESPIRATORY: Breath sounds diminished in the bases. A few scattered rhonchi and crackles. Emphysematous. Rhonchi and expiratory wheezing and breathing efforts are markedly increased. Kyphoscoliosis also present. ABDOMEN: Soft, nontender. No mass palpable. LEGS: No edema, no swelling. NERVOUS SYSTEM: Higher functions as mentioned earlier, moves all 4 limbs, no focal motor deficits. LYMPHATIC: No lymphadenopathy in the neck, axillae, groin. SKIN: No ulcer, rash or bleeding. LABS: WBC 17 and sodium 140, potassium 3.4. ASSESSMENT: 1. Chronic obstructive pulmonary disease acute exacerbation, acute bilateral purulent tracheobronchitis with failure of outpatient treatment. 2. Hypokalemia. 3. Increased WBC. 4. Hypertension. 5. History of pneumonia. 6. History of rheumatoid arthritis. 7. History of rectal bleeding. 8. History of urinary tract infection. 9. History of gout. 10.History of osteopenia. 11.History of degenerative joint disease. 12.History of depression. 13.Remote history of nicotine dependence. RECOMMENDATION AND DISCUSSION: In this 62-year-old woman who presented with multiple complex medical issues, will monitor the patient closely. Continue the current medications. Will optimize bronchodilator treatment. See orders for further details. IV steroids. Monitor blood sugars closely. Replace potassium protocol. Consult Dr. Cade. Empiric antibiotics. Cultures. Prognosis guarded because of multiple complex medical issues. Further recommendations to follow. A copy of dictation being forwarded to Dr. Mijares who is the primary physician. MMODL / IJN: [id number] / [id number]
[2017-12-29] MEDS: BUDESONIDE 1 MG/2 ML NEBU INHALATION SCH (19:12)
[2017-12-29] MEDS: FORMOTEROL FUMARATE 20 MCG/2 ML NEBU INHALATION SCH (19:12)
[2017-12-29] MEDS: IBUPROFEN 800 MG TAB PO PRN (20:35)
[2017-12-29] MEDS: MONTELUKAST 10 MG TAB PO SCH (20:36)
[2017-12-29 20:46] LABS: Glucose,Whole Blood 201 mg/dL (75-99)
[2017-12-29] MEDS: INSULIN ASPART 100 UNIT/ML 1 ML 10 ML VIAL SQ SCH (20:58)
[2017-12-30] MEDS: HYDROcodone/APAP 10-325MG 1 EACH TAB PO PRN ×2 (01:39→16:02)
[2017-12-30] MEDS: IBUPROFEN 800 MG TAB PO PRN ×2 (06:28→20:07)
[2017-12-30] MEDS: methylPREDNISolone SOD SUCCI 125 MG/2 ML VIAL IV SCH ×4 (06:29→23:58)
[2017-12-30 07:17] LABS: Glucose,Whole Blood 122 mg/dL (75-99)
[2017-12-30] MEDS: INSULIN ASPART 100 UNIT/ML 1 ML 10 ML VIAL SQ SCH ×4 (07:24→21:16)
[2017-12-30] MEDS: PANTOPRAZOLE 40 MG TABLET PO SCH (07:39)
[2017-12-30] MEDS: LISINOPRIL 20 MG TAB PO SCH (07:39)
[2017-12-30 08:19] LABS: Basophils % (A) 0 %; Eosinophils % (A) 0 %; HCT 36.1 % (34.0-46.0); HGB 11.1 gm/dL (11.4-16.0); Lymphocytes % (A) 9 %; MCH 31.7 pg (25.0-35.0); MCHC 30.7 g/dL (31.0-37.0); MCV 103.3 fL (80.0-100.0); Macrocytosis Slight; Mean Platelet Volume 8.2; Monocytes # (A) 0.2 k/uL (0-1.0); Monocytes % (A) 2 %; Neutrophils # (A) 9.7 k/uL (1.3-7.7); Neutrophils % (A) 89 %; Platelet Count 300 k/uL (150-450); RBC 3.49 m/uL (3.80-5.40); RDW 14.3 % (11.5-15.5)
[2017-12-30 08:28] LABS: Anion Gap 7 mmol/L; Blood Urea Nitrogen 26 mg/dL (7-17); Calcium 9.2 mg/dL (8.4-10.2); Carbon Dioxide 33 mmol/L (22-30); Chloride 105 mmol/L (98-107); Glucose 126 mg/dL (74-99); Potassium 4.3 mmol/L (3.5-5.1); Sodium 145 mmol/L (137-145)
[2017-12-30] MEDS: BUDESONIDE 1 MG/2 ML NEBU INHALATION SCH ×2 (09:22→19:47)
[2017-12-30] MEDS: IPRATROPIUM-ALBUTEROL 3 ML NEB INHALATION SCH ×4 (09:22→19:47)
[2017-12-30] MEDS: FORMOTEROL FUMARATE 20 MCG/2 ML NEBU INHALATION SCH ×2 (09:22→19:47)
[2017-12-30] MEDS: ENOXAPARIN 40 MG/0.4 ML SYRINGE SQ SCH (10:01)
--- NOTE | 2017-12-30 11:55 | P.CNPUL ---
History of Present Illness Consult date: 12/30/17 Reason for consult: dyspnea, cough, COPD, hypoxemia Chief complaint: Shortness of breath, COPD exacerbation History of present illness: Consult dated 12/30/2017 62-year-old female well-known to our service. She has multiple admissions to this hospital for COPD exacerbation. She came to the ER directed by the family practice doctor. She apparently came in with increasing shortness of breath chest tightness wheezing coughing. Producing a small amount of phlegm. The phlegm had slight yellow color to it. Not coughing up any blood. There is no fever or chills. The patient apparently was being treated for an outpatient episode of acute bronchitis. The patient had a chest x-ray which did not reveal any infiltrates. The patient is oxygen dependent. She sees one of my partners in the office. Her primary care physician is Dr. Mijares. In addition to COPD, she has a history of hypertension pneumonia and rheumatoid arthritis vulvar cancer rectal bleeding gout polyps UTI appendiceal cancer and multiple other medical problems and comorbidities. She states that she does not smoke anymore. Heavy smoker for at least 40+ years in the past. Review of Systems A 12 point review of system is positive for shortness of breath chest tightness wheezing cough chest congestion and minimal phlegm production. Past Medical History Past Medical History: Cancer, COPD, Hypertension, Pneumonia, Rheumatoid Arthritis (RA) Additional Past Medical History / Comment(s): HX RECTAL BLEEDING, CA VULVA, UTI, COLITIS,POLYPS(BENIGN),GOUT,OSTEOPenia ,SINUS/SEASONAL ALLERGIES, CA of appendix History of Any Multi-Drug Resistant Organisms: None Reported Past Surgical History: Hysterectomy, Joint Replacement Additional Past Surgical History / Comment(s): RT KNEE REPLACEMENT, SX TO REMOVE CANCER VULVA,EGD,COLONOSCOPY, LASIK EYE SX Past Anesthesia/Blood Transfusion Reactions: No Reported Reaction Additional Past Anesthesia/Blood Transfusion Reaction / Comment(s): CLAUSTERPHOBIA Past Psychological History: Depression Additional Psychological History / Comment(s): PT STATED OCC MILD DEPRESSION NO THOUGHTS OF HARMING SELF Smoking Status: Former smoker Past Alcohol Use History: None Reported Additional Past Alcohol Use History / Comment(s): STATES QUIT SMOKING IN 1999, SMOKED 2 PPD SINCE AGE 12, STATES DRINKS 2-3 DRINKS A NIGHT(VODKA MIXED WITH BA AID Past Drug Use History: None Reported Additional Drug Use History / Comment(s): PAST OCC MARIJUANA- QUIT - Past Family History Father Family Medical History: Cancer Additional Family Medical History / Comment(s): COLON Mother Family Medical History: Cancer Additional Family Medical History / Comment(s): ESOPHAGUS Sister(s) Family Medical History: Cancer Additional Family Medical History / Comment(s): CERVICAL Medications and Allergies Home Medications Medication Instructions Recorded Confirmed Type Benazepril HCl 20 mg PO QAM 01/24/16 12/29/17 History Furosemide [Lasix] 40 mg PO DAILY PRN 05/31/17 12/29/17 History Montelukast [Singulair] 10 mg PO HS 05/31/17 12/29/17 History Etanercept [Enbrel] 50 mg SQ DIRECTED 07/12/17 12/29/17 History Dextroamphetamine/Amphetamine 20 mg PO DAILY PRN 08/15/17 12/29/17 History [Dextroamp-Amphetamin 20 mg Tab] Albuterol Sulfate [Proair Hfa] 1 - 2 puff INHALATION RT-Q6H PRN 10/27/17 History Ibuprofen [Motrin] 800 mg PO Q8H PRN 10/27/17 12/29/17 History Multivit-Min/Iron/Folic/Lutein 1 tab PO DAILY 10/28/17 12/29/17 History [Centrum Silver Women Tablet] HYDROcodone/APAP 10-325MG [[place] 1 tab PO TID PRN 12/29/17 12/29/17 History 10-325] Lactose-Reduced Food [Boost] 1 can PO DAILY PRN 12/29/17 12/29/17 History Naproxen Sodium [Aleve] 220 - 440 mg PO DAILY PRN 12/29/17 12/29/17 History Tiotropium 18 Mcg/Puff [Spiriva] 1 cap INHALATION RT-DAILY 12/29/17 12/29/17 History guaiFENesin [Mucinex] 600 mg PO Q12HR PRN 12/29/17 12/29/17 History Allergies Allergy/AdvReac Type Severity Reaction Status Date / Time infliximab [From Remicade] Allergy Dyspnea/HIV Verified 12/29/17 12:49 ES procaine [From Novocain] Allergy Unknown Verified 12/29/17 12:49 propoxyphene HCl Allergy Unknown Verified 12/29/17 12:49 [From [facility]] Physical Exam Osteopathic Statement: *. No significant issues noted on an osteopathic structural exam other than those noted in the History and Physical/Consult. Vitals: Vital Signs Temp Pulse Pulse Resp BP BP Pulse Ox 12/30/17 09:47 85 12/30/17 09:35 83 12/30/17 09:34 83 12/30/17 09:23 79 97 12/30/17 09:00 146/80 12/30/17 06:58 97.6 F 89 24 155/106 94 L 12/29/17 23:00 97.1 F L 93 24 141/74 93 L 12/29/17 22:24 18 12/29/17 19:31 84 12/29/17 19:25 84 12/29/17 19:23 84 12/29/17 19:13 78 12/29/17 17:00 97.7 F 95 18 145/81 95 12/29/17 16:04 95 18 12/29/17 15:40 99.1 F 12/29/17 15:38 97 16 167/73 96 12/29/17 14:58 98 F 91 16 168/73 95 12/29/17 14:14 93 20 173/74 97 12/29/17 13:30 88 18 12/29/17 13:16 90 18 12/29/17 12:57 81 18 12/29/17 12:53 77 20 143/93 97 12/29/17 12:01 98.3 F 85 26 H 191/85 92 L Intake and Output 12/29/17 12/30/17 12/30/17 22:59 06:59 14:59 Other: # Voids 1 2 1 # Bowel Movements 1 No acute distress, oriented 3. Nasal O2 in place at 3 L. She does have a bit of a delong facies. HEENT examination is grossly unremarkable. Mucous membranes are moist. No oral lesions. Neck supple. Full range of motion. No adenopathy thyromegaly or neck vein distention. Cardiovascular examination reveals regular rhythm rate. S1-S2 normal. No S3 or S4. No discernible murmur noted. Lungs reveal diminished breath sounds throughout. She has expiratory wheezes and rhonchi. There is prolongation on forced maneuver. Adventitious lung sounds are more prominent on forced maneuver. She coughs and wheezes on forced maneuver. Abdomen soft bowel sounds are heard. No masses or tenderness. Extremities are intact. No cyanosis or clubbing. She does have some mild edema. Skin is without rash or lesion. Neurologic examination is brief but nonfocal. Results - Laboratory Findings CBC and BMP: 12/30/17 07:28 12/30/17 07:28 PT/INR, D-dimer PT 9.5 sec (9.0-12.0) 12/29/17 13:20 INR 0.9 (<1.2) 12/29/17 13:20 Abnormal lab findings: Abnormal Labs 12/29/17 12/29/17 12/29/17 12:31 13:20 20:44 WBC 17.0 H RBC Hgb MCV 100.5 H MCHC Neutrophils # 14.1 H Potassium 3.1 L Carbon Dioxide 37 H BUN 20 H Creatinine Glucose POC Glucose (mg/dL) 201 H Total Protein 5.8 L Albumin 3.3 L 12/30/17 12/30/17 12/30/17 07:07 07:28 07:28 WBC 11.0 H RBC 3.49 L Hgb 11.1 L MCV 103.3 H MCHC 30.7 L Neutrophils # 9.7 H Potassium Carbon Dioxide 33 H BUN 26 H Creatinine 0.50 L Glucose 126 H POC Glucose (mg/dL) 122 H Total Protein Albumin - Diagnostic Findings Chest x-ray: image reviewed (Patient interviewed and examined. Chest x-ray labs and medications are reviewed.) Assessment and Plan Assessment: COPD exacerbation complicated by mild purulent tracheobronchitis. Previous history of heavy tobacco use History of hypertension History of rheumatoid arthritis History of cancer of the vulva Previous history of gout. History of colitis. History of urinary tract infection History of multiple environmental ALLERGIES History of rectal bleeding Plan: Plan dated 12/30/2017 The patient doesn't look all that bad. She's pre-much at her baseline in terms of how she looks when she is admitted to the hospital. The patient is not manifesting any solomon signs of respiratory failure. No nasal flaring. No audible wheezing. No use of accessory muscles. The patient's lung sounds do reveal evidence of coarse expiratory wheezes and rhonchi. There is prolongation on forced maneuver. X-rays reviewed. Shows no solomon infiltrates. The patient's labs will be reviewed and adjusted accordingly. Medications will likewise be reviewed and adjusted. Additional recommendations and suggestions are forthcoming. Prognosis is guarded. Time with Patient: Greater than 30
[2017-12-30 12:03] LABS: Glucose,Whole Blood 125 mg/dL (75-99)
[2017-12-30] MEDS: MULTIVITAMINS, THERA 1 EACH TAB PO SCH (12:55)
[2017-12-30] MEDS: THIAMINE 100 MG TAB PO SCH ×2 (12:55→17:52)
[2017-12-30] MEDS: FUROSEMIDE 40 MG TAB PO PRN (13:33)
[2017-12-30 17:16] LABS: Glucose,Whole Blood 170 mg/dL (75-99)
[2017-12-30 17:23] LABS: Hemoglobin A1C 4.7 % (4.0-6.0)
--- NOTE | 2017-12-30 18:25 | PN ---
PROGRESS NOTE DATE OF SERVICE: 12/30/2017 INTERVAL HISTORY: This 62-year-old woman was admitted with COPD acute exacerbation as well as acute purulent tracheobronchitis, failure of outpatient treatment, being closely monitored. The patient also seen by pulmonology also. Dr. Cade is following the patient closely. No chest pain. No palpitations. No fever. PHYSICAL EXAM: Alert and oriented x3. Pulse 91, blood pressure 140/70, respiration 18, temperature 98.9, pulse ox 98% on room air. HEENT: Oral mucosa moist. Neck is no jugular venous distention. No carotid bruit. No lymph node enlargement. Cardiovascular system: S1, S2. No S3, no S4. RESPIRATORY: Breath sounds diminished in the bases. Bilateral scattered rhonchi and crackles. Expiratory wheezing also present. ABDOMEN: Soft, nontender. Legs: No edema. No swelling. Central nervous system: No focal deficits. LABS: WBC 11, hemoglobin 11.1, creatinine 0.5. Accu-Cheks noted. ASSESSMENT: 1. Chronic obstructive pulmonary disease exacerbation with acute purulent tracheobronchitis with failure of outpatient treatment. 2. Hypokalemia, improved. 3. Increased WBC. 4. Hypertension. 5. History of pneumonia. 6. History of rheumatoid arthritis. 7. History of rectal bleeding. 8. History of urinary tract infection. 9. History of gout. 10.History of osteopenia. 11.History of degenerative joint disease. 12.History of depression. 13.Remote history of nicotine dependence. RECOMMENDATIONS AND DISCUSSION: Recommend to continue current medications, continue symptomatic treatment. Continue with IV antibiotics. Continue with bronchodilators. Continue with IV steroids. Closely monitor with Dr. Cade. Guarded prognosis. Further recommendations to follow. MMODL / IJN: [id number] /
[2017-12-30] MEDS: AMOXIC-POT CLAV 875-125MG 1 EACH TAB PO SCH (20:07)
[2017-12-30] MEDS: MONTELUKAST 10 MG TAB PO SCH (20:07)
[2017-12-30 20:48] LABS: Glucose,Whole Blood 154 mg/dL (75-99)
[2017-12-30] MEDS: TEMAZEPAM 15 MG CAP PO PRN (21:18)
[2017-12-30] MEDS: ALPRAZolam 0.25 MG TAB PO PRN (22:50)
[2017-12-31] MEDS: HYDROcodone/APAP 10-325MG 1 EACH TAB PO PRN ×2 (00:10→16:57)
[2017-12-31] MEDS ORDERED: ONDANSETRON 4 MG/2 ML VIAL IVP PRN (03:00)
[2017-12-31] MEDS: methylPREDNISolone SOD SUCCI 125 MG/2 ML VIAL IV SCH ×2 (05:15→11:04)
[2017-12-31 07:14] LABS: Glucose,Whole Blood 117 mg/dL (75-99)
[2017-12-31] MEDS: INSULIN ASPART 100 UNIT/ML 1 ML 10 ML VIAL SQ SCH ×4 (07:35→20:45)
[2017-12-31] MEDS: IPRATROPIUM-ALBUTEROL 3 ML NEB INHALATION SCH ×4 (07:54→20:06)
[2017-12-31] MEDS: FORMOTEROL FUMARATE 20 MCG/2 ML NEBU INHALATION SCH ×2 (07:54→20:21)
[2017-12-31] MEDS: BUDESONIDE 1 MG/2 ML NEBU INHALATION SCH ×2 (07:54→20:06)
[2017-12-31] MEDS: AMOXIC-POT CLAV 875-125MG 1 EACH TAB PO SCH (07:59)
[2017-12-31] MEDS: ENOXAPARIN 40 MG/0.4 ML SYRINGE SQ SCH (07:59)
[2017-12-31] MEDS: FUROSEMIDE 40 MG TAB PO PRN (08:00)
[2017-12-31] MEDS: LISINOPRIL 20 MG TAB PO SCH (08:00)
[2017-12-31] MEDS: guaiFENesin 600 MG TABLET.ER PO PRN (08:00)
[2017-12-31] MEDS: PANTOPRAZOLE 40 MG TABLET PO SCH (08:12)
[2017-12-31 09:05] LABS: Anion Gap 8 mmol/L; Blood Urea Nitrogen 30 mg/dL (7-17); Calcium 8.6 mg/dL (8.4-10.2); Carbon Dioxide 33 mmol/L (22-30); Chloride 106 mmol/L (98-107); Glucose 127 mg/dL (74-99); Potassium 3.4 mmol/L (3.5-5.1); Sodium 147 mmol/L (137-145)
[2017-12-31 09:25] LABS: Basophils % (A) 0 %; Eosinophils % (A) 0 %; HCT 39.6 % (34.0-46.0); HGB 12.5 gm/dL (11.4-16.0); Hypochromasia Moderate; Lymphocytes # (A) 0.4 k/uL (1.0-4.8); Lymphocytes % (A) 1 %; MCH 32.4 pg (25.0-35.0); MCHC 31.7 g/dL (31.0-37.0); MCV 102.3 fL (80.0-100.0); Macrocytosis Slight; Mean Platelet Volume 9.1; Monocytes # (A) 1.3 k/uL (0-1.0); Monocytes % (A) 4 %; Neutrophils # (A) 32.4 k/uL (1.3-7.7); Neutrophils % (A) 95 %; Platelet Count 315 k/uL (150-450); RBC 3.87 m/uL (3.80-5.40); RDW 14.3 % (11.5-15.5)
[2017-12-31 09:45] LABS: WBC 34.2 k/uL (3.8-10.6)
[2017-12-31] MEDS: MULTIVITAMINS, THERA 1 EACH TAB PO SCH (11:05)
[2017-12-31] MEDS: THIAMINE 100 MG TAB PO SCH ×2 (11:05→16:21)
[2017-12-31] MEDS: ALPRAZolam 0.25 MG TAB PO PRN (11:05)
[2017-12-31] MEDS: POTASSIUM CHLORIDE ER 20 MEQ TAB.ER PO SCH ×2 (11:05→12:34)
[2017-12-31 12:36] LABS: Glucose,Whole Blood 111 mg/dL (75-99)
[2017-12-31] MEDS: AZITHROMYCIN 500 MG in SODIUM CHLORIDE 0.9% 250 ML IVPB SCH (14:11)
[2017-12-31] MEDS: cefTRIAXone IN SWFI 1,000 MG/10 ML SYRINGE IVP SCH (14:11)
[2017-12-31] MEDS: IBUPROFEN 800 MG TAB PO PRN (14:11)
--- NOTE | 2017-12-31 15:07 | P.PN ---
<Savanah Mart M - Last Filed: 12/31/17 14:58> Subjective Progress Note Date: 12/31/17 Principal diagnosis: COPD exacerbation complicated with mild purulent tracheobronchitis. Consult dated 12/30/2017 62-year-old female well-known to our service. She has multiple admissions to this hospital for COPD exacerbation. She came to the ER directed by the [facility] practice doctor. She apparently came in with increasing shortness of breath chest tightness wheezing coughing. Producing a small amount of phlegm. The phlegm had slight yellow color to it. Not coughing up any blood. There is no fever or chills. The patient apparently was being treated for an outpatient episode of acute bronchitis. The patient had a chest x-ray which did not reveal any infiltrates. The patient is oxygen dependent. She sees one of my partners in the office. Her primary care physician is Dr. Mijares. In addition to COPD, she has a history of hypertension pneumonia and rheumatoid arthritis vulvar cancer rectal bleeding gout polyps UTI appendiceal cancer and multiple other medical problems and comorbidities. She states that she does not smoke anymore. Heavy smoker for at least 40+ years in the past. On 12/31/2017 is improving. Afebrile, hemodynamically stable. Remains on 2 L per nasal cannula with O2 sat 95%. On today's blood work WBCs up to 34.2, serum sodium is 147, serum potassium 3.4, C. diff was negative, influenza screen was negative. Chest x-ray did not reveal any infiltrates. Patient continues on Zithromax and Rocephin, Pulmicort, Perforomist, DuoNeb and Mucinex. Continue with current plan of treatment. Patient's lung sounds are diminished with end expiratory wheezes. Objective - Vital Signs Vital signs: Vital Signs Temp 99.1 F 12/31/17 06:36 Pulse 95 12/31/17 12:26 Resp 24 12/31/17 06:36 BP 161/70 12/31/17 06:36 Pulse Ox 95 12/31/17 07:55 Intake & Output 12/30/17 12/31/17 12/31/17 18:59 06:59 18:59 Output Total 400 Balance -400 Output: Emesis 400 Other: Voiding Method Toilet # Voids 1 2 3 # Bowel Movements 1 6 - Exam GENERAL EXAM: Alert, active, comfortable in no apparent distress. HEAD: Normocephalic/atraumatic. EYES: Normal reaction of pupils, equal size. Conjunctiva pink, sclera white. NOSE: Clear with pink turbinates. THROAT: No erythema or exudates. NECK: No masses, no JVD, no thyroid enlargement, no adenopathy. CHEST: No chest wall deformity. Symmetrical expansion. LUNGS: Equal air entry with a few end expiratory wheezes CVS: Regular rate and rhythm, normal S1 and S2, no gallops, no murmurs, no rubs ABDOMEN: Soft, nontender. No hepatosplenomegaly, normal bowel sounds, no guarding or rigidity. EXTREMITIES: No clubbing, no edema, no cyanosis, 2+ pulses and upper and lower extremities. MUSCULOSKELETAL: Muscle strength and tone normal. SPINE: No scoliosis or deformity SKIN: No rashes CENTRAL NERVOUS SYSTEM: Alert and oriented -3. No focal deficits, tone is normal in all 4 extremities. PSYCHIATRIC: Alert and oriented -3. Appropriate affect. Intact judgment and insight. - Labs CBC & Chem 7: 12/31/17 07:46 12/31/17 07:46 Labs: Abnormal Lab Results - Last 24 Hours (Table) 12/30/17 12/30/17 12/31/17 Range/Units 17:14 20:46 07:05 WBC (3.8-10.6) k/uL MCV (80.0-100.0) fL Neutrophils # (1.3-7.7) k/uL Lymphocytes # (1.0-4.8) k/uL Monocytes # (0-1.0) k/uL Sodium (137-145) mmol/L Potassium (3.5-5.1) mmol/L Carbon Dioxide (22-30) mmol/L BUN (7-17) mg/dL Glucose (74-99) mg/dL POC Glucose (mg/dL) 170 H 154 H 117 H (75-99) mg/dL 12/31/17 12/31/17 12/31/17 Range/Units 07:46 07:46 12:18 WBC 34.2 H* (3.8-10.6) k/uL MCV 102.3 H (80.0-100.0) fL Neutrophils # 32.4 H (1.3-7.7) k/uL Lymphocytes # 0.4 L (1.0-4.8) k/uL Monocytes # 1.3 H (0-1.0) k/uL Sodium 147 H (137-145) mmol/L Potassium 3.4 L (3.5-5.1) mmol/L Carbon Dioxide 33 H (22-30) mmol/L BUN 30 H (7-17) mg/dL Glucose 127 H (74-99) mg/dL POC Glucose (mg/dL) 111 H (75-99) mg/dL Assessment and Plan Plan: Assessment: COPD exacerbation complicated by mild purulent tracheobronchitis. Previous history of heavy tobacco use History of hypertension History of rheumatoid arthritis History of cancer of the vulva Previous history of gout. History of colitis. History of urinary tract infection History of multiple environmental ALLERGIES History of rectal bleeding Plan: Continue current treatment, continue Rocephin and Zithromax, Pulmicort, Perforomist and DuoNeb nebulized treatments. Patient is improving, probably in Solu-Medrol down to 40 mg every 8 hours. Increase activity as tolerated. Patient continues to improve she may be considered for discharge in next 24 hours. I performed a history & physical examination of the patient and discussed their management with my nurse practitioner, Savanah Mart. I reviewed the nurse practitioner's note and agree with the documented findings and plan of care. Lung sounds are positive for minimal end expiratory wheezes. The findings and the impression was discussed with the patient. I attest to the documentation by the nurse practitioner. Time with Patient: Less than 30 <Jose Elias Goodman - Last Filed: 12/31/17 16:18> Objective - Vital Signs Vital signs: Vital Signs Temp 99.1 F 12/31/17 06:36 Pulse 92 12/31/17 16:16 Resp 24 12/31/17 06:36 BP 161/70 12/31/17 06:36 Pulse Ox 95 12/31/17 07:55 Intake & Output 12/30/17 12/31/17 12/31/17 18:59 06:59 18:59 Output Total 400 Balance -400 Output: Emesis 400 Other: Voiding Method Toilet # Voids 1 2 3 # Bowel Movements 1 6 - Labs CBC & Chem 7: 12/31/17 07:46 12/31/17 14:11 Labs: Abnormal Lab Results - Last 24 Hours (Table) 12/30/17 12/30/17 12/31/17 Range/Units 17:14 20:46 07:05 WBC (3.8-10.6) k/uL MCV (80.0-100.0) fL Neutrophils # (1.3-7.7) k/uL Lymphocytes # (1.0-4.8) k/uL Monocytes # (0-1.0) k/uL Sodium (137-145) mmol/L Potassium (3.5-5.1) mmol/L Carbon Dioxide (22-30) mmol/L BUN (7-17) mg/dL Glucose (74-99) mg/dL POC Glucose (mg/dL) 170 H 154 H 117 H (75-99) mg/dL 12/31/17 12/31/17 12/31/17 Range/Units 07:46 07:46 12:18 WBC 34.2 H* (3.8-10.6) k/uL MCV 102.3 H (80.0-100.0) fL Neutrophils # 32.4 H (1.3-7.7) k/uL Lymphocytes # 0.4 L (1.0-4.8) k/uL Monocytes # 1.3 H (0-1.0) k/uL Sodium 147 H (137-145) mmol/L Potassium 3.4 L (3.5-5.1) mmol/L Carbon Dioxide 33 H (22-30) mmol/L BUN 30 H (7-17) mg/dL Glucose 127 H (74-99) mg/dL POC Glucose (mg/dL) 111 H (75-99) mg/dL Assessment and Plan Plan: This is a joint evaluation that was done along with a nurse practitioner. The patient is improving. The patient on IV Solu Medrol 4 L every 8 hours. Continue same treatment. Possible discharge in a.m. Patient was interviewed and the patient was examined. Continue the Perforomist and Pulmicort neb last 2 minutes twice a day. Into DuoNeb nebulized treatments. Continue Rocephin and Zithromax for today.
[2017-12-31] MEDS: DIPHENOX-ATROP 2.5-0.025 MG 1 EACH TAB PO SCH ×3 (15:28→20:46)
[2017-12-31] MEDS: methylPREDNISolone SOD SUCCI 40 MG/ML 1 ML VIAL IV SCH (16:21)
--- NOTE | 2017-12-31 17:15 | XR ---
2 view abdomen HISTORY: Small bowel obstruction Comparison prior chest x-ray 12/29/2017 multiple air-fluid levels are present without bowel distention. No pneumoperitoneum. IMPRESSION: Correlate for bowel obstruction versus ileus, follow-up as indicated
[2017-12-31 17:25] LABS: Glucose,Whole Blood 114 mg/dL (75-99)
[2017-12-31] MEDS ORDERED: Magnesium Replacement Protocol 1 EACH MISC MISCELLANE PRN (19:07)
--- NOTE | 2017-12-31 19:09 | P.PN ---
Subjective Progress Note Date: 12/31/17 Progress note being dictated for Dr. Calixto Interval history: This is a 62-year-old female admitted with acute complications COPD exacerbation with purulent tracheobronchitis and multiple other medical issues. T-max 99.1. White count up to 34.2. Maintained on Zithromax, Rocephin, nebulized bronchodilators. Breathing improving, maintaining O2 sats in the mid 90s on 2 L nasal cannula. Complains of nausea with emesis 2, diarrhea. Tested negative for C. difficile colitis. Objective - Vital Signs Vital signs: Vital Signs Temp 98.4 F 12/31/17 15:00 Pulse 92 12/31/17 16:24 Resp 19 12/31/17 15:00 BP 135/61 12/31/17 15:00 Pulse Ox 99 12/31/17 15:00 Intake & Output 12/30/17 12/31/17 12/31/17 18:59 06:59 18:59 Output Total 400 Balance -400 Output: Emesis 400 Other: Voiding Method Toilet # Voids 1 2 1 # Bowel Movements 1 4 - Exam PHYSICAL EXAM: VITAL SIGNS: As above GENERAL: Sitting up in bed, no acute distress HEENT: Conjunctivae normal. eyes normal. Oral mucosa moist NECK: No JVD. No thyroid enlargement. No LNs CARDIOVASCULAR: S1, S2 muffled. No murmur RESPIRATION: Breath sounds diminished in the bases. No rhonchi or crackles. Expiratory wheezing ABDOMEN: Soft, nontender . No guarding. no masses palpable.Bowel sounds heard. LEGS: No edema. no swelling PSYCHIATRY: Alert and oriented -3, mood and affect normal. NERVOUS SYSTEM: Cranial N 2-12 grossly normal. Moves all 4 limbs. Diffuse weakness No focal deficits. Skin: no ulcer no rash Joints: No active swelling. No inflammation. Lymphatic system. No LN neck axilla or groin. - Labs CBC & Chem 7: 12/31/17 07:46 12/31/17 14:11 Labs: Abnormal Lab Results - Last 24 Hours (Table) 12/30/17 12/31/17 12/31/17 Range/Units 20:46 07:05 07:46 WBC 34.2 H* (3.8-10.6) k/uL MCV 102.3 H (80.0-100.0) fL Neutrophils # 32.4 H (1.3-7.7) k/uL Lymphocytes # 0.4 L (1.0-4.8) k/uL Monocytes # 1.3 H (0-1.0) k/uL Sodium (137-145) mmol/L Potassium (3.5-5.1) mmol/L Carbon Dioxide (22-30) mmol/L BUN (7-17) mg/dL Glucose (74-99) mg/dL POC Glucose (mg/dL) 154 H 117 H (75-99) mg/dL 12/31/17 12/31/17 12/31/17 Range/Units 07:46 12:18 17:15 WBC (3.8-10.6) k/uL MCV (80.0-100.0) fL Neutrophils # (1.3-7.7) k/uL Lymphocytes # (1.0-4.8) k/uL Monocytes # (0-1.0) k/uL Sodium 147 H (137-145) mmol/L Potassium 3.4 L (3.5-5.1) mmol/L Carbon Dioxide 33 H (22-30) mmol/L BUN 30 H (7-17) mg/dL Glucose 127 H (74-99) mg/dL POC Glucose (mg/dL) 111 H 114 H (75-99) mg/dL Assessment and Plan Assessment: 1. Acute COPD exacerbation, purulent tracheobronchitis 2. Leukocytosis 3. Hypertension 4. N/V/D, workup in progress Plan: Continue on current medication regime ,monitoring and symptomatic treatment. Potassium 3.4, to be supplemented per replacement protocol. Magnesium level pending. Close monitoring of electrolytes with repeat labs ordered for a.m. Two-view of abdomen completed, pending. Maintain nebulized bronchodilators, steroids, antibiotics. Steroid tapering in progress. Increase ambulation as tolerated. Discharge planning in progress potentially for tomorrow. The impression and plan of care has been dictated as directed. : I performed a history and examination of this patient, discussed the same with the dictator. I agree with the dictator's note ,documented as a scribe. Any additional findings or plans will be noted.
[2017-12-31 20:37] LABS: Glucose,Whole Blood 141 mg/dL (75-99)
[2017-12-31] MEDS: MONTELUKAST 10 MG TAB PO SCH (20:46)
[2017-12-31] MEDS: TEMAZEPAM 15 MG CAP PO PRN (20:46)
[2017-12-31] MEDS: SODIUM CHLORIDE 0.45% 1,000 ML IV SCH (21:11)
[2018-01-01] MEDS: methylPREDNISolone SOD SUCCI 40 MG/ML 1 ML VIAL IV SCH ×3 (00:30→16:38)
[2018-01-01] MEDS: HYDROcodone/APAP 10-325MG 1 EACH TAB PO PRN ×2 (03:35→13:59)
[2018-01-01] MEDS ORDERED: IPRATROPIUM-ALBUTEROL 3 ML NEB INHALATION PRN (04:48)
[2018-01-01] MEDS: INSULIN ASPART 100 UNIT/ML 1 ML 10 ML VIAL SQ SCH ×4 (07:00→21:04)
[2018-01-01] MEDS: IBUPROFEN 800 MG TAB PO PRN (07:03)
[2018-01-01 07:04] LABS: Glucose,Whole Blood 124 mg/dL (75-99)
[2018-01-01] MEDS: PANTOPRAZOLE 40 MG TABLET PO SCH (07:33)
[2018-01-01] MEDS: guaiFENesin 600 MG TABLET.ER PO PRN (07:33)
[2018-01-01] MEDS: DIPHENOX-ATROP 2.5-0.025 MG 1 EACH TAB PO SCH ×4 (07:33→21:04)
[2018-01-01] MEDS: ENOXAPARIN 40 MG/0.4 ML SYRINGE SQ SCH (07:33)
[2018-01-01] MEDS: LISINOPRIL 20 MG TAB PO SCH (07:34)
[2018-01-01] MEDS: SODIUM CHLORIDE 0.45% 1,000 ML IV SCH (07:36)
[2018-01-01 08:05] LABS: Basophils % (A) 0 %; Eosinophils % (A) 0 %; HCT 37.9 % (34.0-46.0); HGB 11.8 gm/dL (11.4-16.0); Hypochromasia Slight; Lymphocytes # (A) 0.4 k/uL (1.0-4.8); Lymphocytes % (A) 4 %; MCHC 31.3 g/dL (31.0-37.0); MCV 102.3 fL (80.0-100.0); Macrocytosis Slight; Mean Platelet Volume 8.4; Monocytes # (A) 0.5 k/uL (0-1.0); Monocytes % (A) 4 %; Neutrophils # (A) 11.1 k/uL (1.3-7.7); Neutrophils % (A) 92 %; Platelet Count 269 k/uL (150-450); RDW 14.2 % (11.5-15.5); WBC 12.1 k/uL (3.8-10.6)
[2018-01-01 08:32] LABS: Anion Gap 6 mmol/L; Blood Urea Nitrogen 20 mg/dL (7-17); Calcium 8.4 mg/dL (8.4-10.2); Carbon Dioxide 31 mmol/L (22-30); Chloride 106 mmol/L (98-107); Glucose 119 mg/dL (74-99); Potassium 3.5 mmol/L (3.5-5.1); Sodium 143 mmol/L (137-145)
[2018-01-01] MEDS: IPRATROPIUM-ALBUTEROL 3 ML NEB INHALATION SCH ×4 (09:16→21:22)
[2018-01-01] MEDS: BUDESONIDE 1 MG/2 ML NEBU INHALATION SCH ×2 (09:16→21:22)
[2018-01-01] MEDS: FORMOTEROL FUMARATE 20 MCG/2 ML NEBU INHALATION SCH ×2 (09:16→21:22)
[2018-01-01] MEDS: MULTIVITAMINS, THERA 1 EACH TAB PO SCH (12:32)
[2018-01-01] MEDS: THIAMINE 100 MG TAB PO SCH ×2 (12:32→16:52)
[2018-01-01 12:44] LABS: Glucose,Whole Blood 120 mg/dL (75-99)
--- NOTE | 2018-01-01 12:48 | P.GSCN ---
History of Present Illness Consult date: 01/01/18 Reason for Consult: Bowel obstruction History of present illness: Patient admitted to the hospital 3 days ago because of exacerbation of COPD. During the hospitalization she says she experienced episodes of nausea and vomiting yesterday and the day before. Denies pain. Some loose stools as well. Last episode of diarrhea earlier this morning. Her appetite was gone however she is quite hungry now. No rectal bleeding or melena. Abdominal x- rays yesterday showed air-fluid levels suspicious for possible partial small bowel obstruction. Denies bloating. History of open right colectomy last June and readmission in July for P SBO that resolved spontaneously. Review of Systems The patient denies any acute changes in vision or hearing, no dysphagia or odynophagia, no dysuria or hematuria, no headache, no runny nose, no rectal bleeding or melena, no unexplained weight loss Past Medical History Past Medical History: Cancer, COPD, Hypertension, Pneumonia, Rheumatoid Arthritis (RA) Additional Past Medical History / Comment(s): HX RECTAL BLEEDING, CA VULVA, UTI, COLITIS,POLYPS(BENIGN),GOUT,OSTEOPenia ,SINUS/SEASONAL ALLERGIES, CA of appendix History of Any Multi-Drug Resistant Organisms: None Reported Past Surgical History: Hysterectomy, Joint Replacement Additional Past Surgical History / Comment(s): RT KNEE REPLACEMENT, SX TO REMOVE CANCER VULVA,EGD,COLONOSCOPY, LASIK EYE SX Past Anesthesia/Blood Transfusion Reactions: No Reported Reaction Additional Past Anesthesia/Blood Transfusion Reaction / Comm: CLAUSTERPHOBIA Past Psychological History: Depression Additional Psychological History / Comment(s): PT STATED OCC MILD DEPRESSION NO THOUGHTS OF HARMING SELF Smoking Status: Former smoker Past Alcohol Use History: None Reported Additional Past Alcohol Use History / Comment(s): [facility] QUIT SMOKING IN 1999, SMOKED 2 PPD SINCE AGE 12, STATES DRINKS 2-3 DRINKS A NIGHT(VODKA MIXED WITH BA AID Past Drug Use History: None Reported Additional Drug Use History / Comment(s): PAST OCC MARIJUANA- QUIT - Past Family History Father Family Medical History: Cancer Additional Family Medical History / Comment(s): COLON Mother Family Medical History: Cancer Additional Family Medical History / Comment(s): ESOPHAGUS Sister(s) Family Medical History: Cancer Additional Family Medical History / Comment(s): CERVICAL Medications and Allergies Home Medications Medication Instructions Recorded Confirmed Type Benazepril HCl 20 mg PO QAM 01/24/16 12/29/17 History Furosemide [Lasix] 40 mg PO DAILY PRN 05/31/17 12/29/17 History Montelukast [Singulair] 10 mg PO HS 05/31/17 12/29/17 History Etanercept [Enbrel] 50 mg SQ DIRECTED 07/12/17 12/29/17 History Dextroamphetamine/Amphetamine 20 mg PO DAILY PRN 08/15/17 12/29/17 History [Dextroamp-Amphetamin 20 mg Tab] Albuterol Sulfate [Proair Hfa] 1 - 2 puff INHALATION RT-Q6H PRN 10/27/17 History Ibuprofen [Motrin] 800 mg PO Q8H PRN 10/27/17 12/29/17 History Multivit-Min/Iron/Folic/Lutein 1 tab PO DAILY 10/28/17 12/29/17 History [Centrum Silver Women Tablet] HYDROcodone/APAP 10-325MG [[place] 1 tab PO TID PRN 12/29/17 12/29/17 History 10-325] Lactose-Reduced Food [Boost] 1 can PO DAILY PRN 12/29/17 12/29/17 History Naproxen Sodium [Aleve] 220 - 440 mg PO DAILY PRN 12/29/17 12/29/17 History Tiotropium 18 Mcg/Puff [Spiriva] 1 cap INHALATION RT-DAILY 12/29/17 12/29/17 History guaiFENesin [Mucinex] 600 mg PO Q12HR PRN 12/29/17 12/29/17 History Allergies Allergy/AdvReac Type Severity Reaction Status Date / Time infliximab [From Remicade] Allergy Dyspnea/HIV Verified 12/29/17 12:49 ES procaine [From Novocain] Allergy Unknown Verified 12/29/17 12:49 propoxyphene HCl Allergy Unknown Verified 12/29/17 12:49 [From Darvon] Surgical - Exam Vital Signs Temp Pulse Resp BP Pulse Ox 98.3 F 85 26 H 191/85 92 L 12/29/17 12:01 12/29/17 12:01 12/29/17 12:01 12/29/17 12:01 12/29/17 12:01 Physical exam: General: Well-developed, well-nourished HEENT: Normocephalic, sclerae nonicteric Abdomen: Nontender, nondistended, tympany Extremities: No edema Neuro: Alert and oriented Results - Labs 01/01/18 07:15 01/01/18 07:15 Abnormal Lab Results - Last 24 Hours (Table) 12/31/17 12/31/17 01/01/18 Range/Units 17:15 20:36 06:58 WBC (3.8-10.6) k/uL RBC (3.80-5.40) m/uL MCV (80.0-100.0) fL Neutrophils # (1.3-7.7) k/uL Lymphocytes # (1.0-4.8) k/uL Carbon Dioxide (22-30) mmol/L BUN (7-17) mg/dL Glucose (74-99) mg/dL POC Glucose (mg/dL) 114 H 141 H 124 H (75-99) mg/dL 01/01/18 01/01/18 01/01/18 Range/Units 07:15 07:15 12:31 WBC 12.1 H (3.8-10.6) k/uL RBC 3.70 L (3.80-5.40) m/uL MCV 102.3 H (80.0-100.0) fL Neutrophils # 11.1 H (1.3-7.7) k/uL Lymphocytes # 0.4 L (1.0-4.8) k/uL Carbon Dioxide 31 H (22-30) mmol/L BUN 20 H (7-17) mg/dL Glucose 119 H (74-99) mg/dL POC Glucose (mg/dL) 120 H (75-99) mg/dL Diabetes panel 12/31/17 01/01/18 Range/Units 14:11 07:15 Sodium 143 (137-145) mmol/L Potassium 3.5 3.5 (3.5-5.1) mmol/L Chloride 106 (98-107) mmol/L Carbon Dioxide 31 H (22-30) mmol/L BUN 20 H (7-17) mg/dL Creatinine 0.61 (0.52-1.04) mg/dL Glucose 119 H (74-99) mg/dL Calcium 8.4 (8.4-10.2) mg/dL Calcium panel 01/01/18 Range/Units 07:15 Calcium 8.4 (8.4-10.2) mg/dL Pituitary panel 12/31/17 01/01/18 Range/Units 14:11 07:15 Sodium 143 (137-145) mmol/L Potassium 3.5 3.5 (3.5-5.1) mmol/L Chloride 106 (98-107) mmol/L Carbon Dioxide 31 H (22-30) mmol/L BUN 20 H (7-17) mg/dL Creatinine 0.61 (0.52-1.04) mg/dL Glucose 119 H (74-99) mg/dL Calcium 8.4 (8.4-10.2) mg/dL Adrenal panel 12/31/17 01/01/18 Range/Units 14:11 07:15 Sodium 143 (137-145) mmol/L Potassium 3.5 3.5 (3.5-5.1) mmol/L Chloride 106 (98-107) mmol/L Carbon Dioxide 31 H (22-30) mmol/L BUN 20 H (7-17) mg/dL Creatinine 0.61 (0.52-1.04) mg/dL Glucose 119 H (74-99) mg/dL Calcium 8.4 (8.4-10.2) mg/dL Assessment and Plan (1) Small bowel obstruction Narrative/Plan: Patient's x-rays from yesterday do suggest air fluid levels consistent with either ileus or SBO. Clinically the patient appears to be doing much better today however. Resume liquid diet. Repeat abdominal x-rays ordered for tomorrow. If symptoms persist or are aggravated further Will order CT abdomen and pelvis Current Visit: No Status: Acute Code(s): K56.609 - UNSP INTESTNL OBST, UNSP TO PARTIAL VERSUS COMPLETE OBST SNOMED Code(s): 125475919
--- NOTE | 2018-01-01 13:46 | P.PN ---
Subjective Progress Note Date: 01/01/18 Principal diagnosis: COPD exacerbation complicated with mild purulent tracheobronchitis. Consult dated 12/30/2017 62-year-old female well-known to our service. She has multiple admissions to this hospital for COPD exacerbation. She came to the ER directed by the [facility] practice doctor. She apparently came in with increasing shortness of breath chest tightness wheezing coughing. Producing a small amount of phlegm. The phlegm had slight yellow color to it. Not coughing up any blood. There is no fever or chills. The patient apparently was being treated for an outpatient episode of acute bronchitis. The patient had a chest x-ray which did not reveal any infiltrates. The patient is oxygen dependent. She sees one of my partners in the office. Her primary care physician is Dr. Mijares. In addition to COPD, she has a history of hypertension pneumonia and rheumatoid arthritis vulvar cancer rectal bleeding gout polyps UTI appendiceal cancer and multiple other medical problems and comorbidities. She states that she does not smoke anymore. Heavy smoker for at least 40+ years in the past. On 12/31/2017 is improving. Afebrile, hemodynamically stable. Remains on 2 L per nasal cannula with O2 sat 95%. On today's blood work WBCs up to 34.2, serum sodium is 147, serum potassium 3.4, C. diff was negative, influenza screen was negative. Chest x-ray did not reveal any infiltrates. Patient continues on Zithromax and Rocephin, Pulmicort, Perforomist, DuoNeb and Mucinex. Continue with current plan of treatment. Patient's lung sounds are diminished with end expiratory wheezes. On 01/01/2018 patient seen again in follow-up. Lung sounds remain diminished, with a few end expiratory wheezes. Continues on 3 L per nasal cannula, with O2 sat 98%. Patient is afebrile. Does become dyspneic with activity, recovers with rest. Patient had several episodes of vomiting yesterday, with brownish emesis. She also had a few episodes of diarrhea. There was a concern about ileus versus bowel obstruction. Flat plate of the abdomen was done, which showed multiple air-fluid levels without bowel distention, no pneumoperitoneum. Patient has been seen in consultation by surgery. She remains nothing by mouth at this time. No nausea, no vomiting or diarrhea since today. Abdomen is soft and nontender, a bit distended, but patient states this is her baseline since her open right colectomy last June, and subsequent small bowel obstruction in July 2017 that resolved spontaneously. Surgeries plan on resuming liquid diet, and following up with abdominal x-rays. From pulmonary standpoint patient continues to improve, she is on a combination of Rocephin and Zithromax, nebulized treatments, and IV steroids at at 40 mg every 8 hours. Objective - Vital Signs Vital signs: Vital Signs Temp 97.5 F L 01/01/18 07:00 Pulse 80 01/01/18 13:22 Resp 18 01/01/18 07:00 BP 145/73 01/01/18 07:00 Pulse Ox 98 01/01/18 07:00 Intake & Output 12/31/17 01/01/18 01/01/18 18:59 06:59 18:59 Other: Voiding Method Toilet # Voids 1 1 # Bowel Movements 4 - Exam GENERAL EXAM: Alert, active, comfortable in no apparent distress. HEAD: Normocephalic/atraumatic. EYES: Normal reaction of pupils, equal size. Conjunctiva pink, sclera white. NOSE: Clear with pink turbinates. THROAT: No erythema or exudates. NECK: No masses, no JVD, no thyroid enlargement, no adenopathy. CHEST: No chest wall deformity. Symmetrical expansion. LUNGS: Diminished air entry bilaterally with a few end expiratory wheezes CVS: Regular rate and rhythm, normal S1 and S2, no gallops, no murmurs, no rubs ABDOMEN: Soft, nontender, slightly distended. No hepatosplenomegaly, normal bowel sounds, no guarding or rigidity. There are healed surgical scars on the abdomen EXTREMITIES: No clubbing, no edema, no cyanosis, 2+ pulses and upper and lower extremities. MUSCULOSKELETAL: Muscle strength and tone normal. SPINE: No scoliosis or deformity SKIN: No rashes CENTRAL NERVOUS SYSTEM: Alert and oriented -3. No focal deficits, tone is normal in all 4 extremities. PSYCHIATRIC: Alert and oriented -3. Appropriate affect. Intact judgment and insight. - Labs CBC & Chem 7: 01/01/18 07:15 01/01/18 07:15 Labs: Abnormal Lab Results - Last 24 Hours (Table) 12/31/17 12/31/17 01/01/18 Range/Units 17:15 20:36 06:58 WBC (3.8-10.6) k/uL RBC (3.80-5.40) m/uL MCV (80.0-100.0) fL Neutrophils # (1.3-7.7) k/uL Lymphocytes # (1.0-4.8) k/uL Carbon Dioxide (22-30) mmol/L BUN (7-17) mg/dL Glucose (74-99) mg/dL POC Glucose (mg/dL) 114 H 141 H 124 H (75-99) mg/dL 01/01/1818 01/01/18 Range/Units 07:15 07:15 12:31 WBC 12.1 H (3.8-10.6) k/uL RBC 3.70 L (3.80-5.40) m/uL MCV 102.3 H (80.0-100.0) fL Neutrophils # 11.1 H (1.3-7.7) k/uL Lymphocytes # 0.4 L (1.0-4.8) k/uL Carbon Dioxide 31 H (22-30) mmol/L BUN 20 H (7-17) mg/dL Glucose 119 H (74-99) mg/dL POC Glucose (mg/dL) 120 H (75-99) mg/dL Assessment and Plan Plan: Assessment: #1 COPD exacerbation complicated by mild purulent tracheobronchitis. #2 Vomiting, diarrhea, rule out bowel obstruction versus ileus. Surgery is following #3 Extensive laparoscopic lysis of adhesions with open right colectomy with excision of suprapubic sebaceous cyst in June 2017, and subsequent readmission in July 2017 for small bowel obstruction that resolved spontaneously #4 Previous history of heavy tobacco use #5 History of hypertension #6 History of rheumatoid arthritis #7 History of cancer of the vulva #8 Previous history of gout. #9 History of colitis. #10 History of urinary tract infection #11 History of multiple environmental ALLERGIES #12 History of rectal bleeding Plan: From pulmonary standpoint patient remains stable, continues to improve. Continue current treatment, continue Rocephin and Zithromax, Pulmicort, Perforomist and DuoNeb nebulized treatments. There is concerns for possible bowel obstruction versus ileus, surgery is following. No nausea, vomiting or diarrhea today. We'll continue to follow with you. I performed a history & physical examination of the patient and discussed their management with my nurse practitioner, Savanah Mart. I reviewed the nurse practitioner's note and agree with the documented findings and plan of care. Lung sounds are positive for diminished air entry bilaterally and minimal end expiratory wheezes. The findings and the impression was discussed with the patient. I attest to the documentation by the nurse practitioner. Time with Patient: Less than 30
[2018-01-01] MEDS: cefTRIAXone IN SWFI 1,000 MG/10 ML SYRINGE IVP SCH (14:40)
[2018-01-01] MEDS: AZITHROMYCIN 500 MG in SODIUM CHLORIDE 0.9% 250 ML IVPB SCH (14:40)
[2018-01-01 17:15] LABS: Glucose,Whole Blood 110 mg/dL (75-99)
--- NOTE | 2018-01-01 19:20 | P.PN ---
Subjective Progress Note Date: 01/01/18 Progress note being dictated for Dr. Calixto Interval history: This is a 62-year-old female admitted with acute complications COPD exacerbation with purulent tracheobronchitis and multiple other medical issues. T-max 99.1. White count up to 34.2. Maintained on Zithromax, Rocephin, nebulized bronchodilators. Breathing improving, maintaining O2 sats in the mid 90s on 2 L nasal cannula. Complains of nausea with emesis 2, diarrhea. Tested negative for C. difficile colitis. 01/01/2018 abdominal x-rays reported ileus versus partial small bowel obstruction. Denies abdominal pain. Evaluated by general surgery. Positive bowel movement, passing flatus. Diet advanced to full liquids. Consumed two lunch trays, now complaining of nausea, no emesis. Denies chest pain, palpitations or increased shortness of breath. Afebrile, leukocytosis significantly improved. Breathing continues to improve. Objective - Vital Signs Vital signs: Vital Signs Temp 97.4 F L 01/01/18 15:00 Pulse 92 01/01/18 16:42 Resp 16 01/01/18 15:00 BP 130/65 01/01/18 15:00 Pulse Ox 89 L 01/01/18 15:00 Intake & Output 01/01/18 01/01/18 01/02/18 06:59 18:59 06:59 Other: # Voids 1 1 # Bowel Movements 2 - Exam PHYSICAL EXAM: VITAL SIGNS: As above GENERAL: Sitting up in bed, no acute distress HEENT: Conjunctivae normal. eyes normal. Oral mucosa moist NECK: No JVD. No thyroid enlargement. No LNs CARDIOVASCULAR: S1, S2 muffled. No murmur RESPIRATION: Breath sounds diminished in the bases. No rhonchi or crackles. Occasional scattered Expiratory wheezing ABDOMEN: Soft, nontender . No guarding. no masses palpable.Bowel sounds heard. LEGS: No edema. no swelling PSYCHIATRY: Alert and oriented -3, mood and affect normal. NERVOUS SYSTEM: Cranial N 2-12 grossly normal. Moves all 4 limbs. Diffuse weakness No focal deficits. Skin: no ulcer no rash Joints: No active swelling. No inflammation. Lymphatic system. No LN neck axilla or groin. - Labs CBC & Chem 7: 01/01/18 07:15 01/01/18 07:15 Labs: Abnormal Lab Results - Last 24 Hours (Table) 12/31/17 01/01/18 01/01/18 Range/Units 20:36 06:58 07:15 WBC 12.1 H (3.8-10.6) k/uL RBC 3.70 L (3.80-5.40) m/uL MCV 102.3 H (80.0-100.0) fL Neutrophils # 11.1 H (1.3-7.7) k/uL Lymphocytes # 0.4 L (1.0-4.8) k/uL Carbon Dioxide (22-30) mmol/L BUN (7-17) mg/dL Glucose (74-99) mg/dL POC Glucose (mg/dL) 141 H 124 H (75-99) mg/dL 01/01/18 01/01/18 01/01/18 Range/Units 07:15 12:31 17:08 WBC (3.8-10.6) k/uL RBC (3.80-5.40) m/uL MCV (80.0-100.0) fL Neutrophils # (1.3-7.7) k/uL Lymphocytes # (1.0-4.8) k/uL Carbon Dioxide 31 H (22-30) mmol/L BUN 20 H (7-17) mg/dL Glucose 119 H (74-99) mg/dL POC Glucose (mg/dL) 120 H 110 H (75-99) mg/dL Assessment and Plan Assessment: 1. Acute COPD exacerbation, purulent tracheobronchitis 2. Leukocytosis 3. Hypertension 4. N/V/D, possibly partial small bowel obstruction versus ileus Plan: Continue on current medication regime ,monitoring and symptomatic treatment. Diet advancement as per surgery .Maintain nebulized bronchodilators , steroids, antibiotics. Steroid tapering in progress. Increase ambulation as tolerated. Discharge planning in progress potentially for tomorrow. The impression and plan of care has been dictated as directed. : I performed a history and examination of this patient, discussed the same with the dictator. I agree with the dictator's note ,documented as a scribe. Any additional findings or plans will be noted.
[2018-01-01 20:40] LABS: Glucose,Whole Blood 123 mg/dL (75-99)
[2018-01-01] MEDS: MONTELUKAST 10 MG TAB PO SCH (21:04)
[2018-01-01] MEDS: TEMAZEPAM 15 MG CAP PO PRN (21:04)
[2018-01-02] MEDS: methylPREDNISolone SOD SUCCI 40 MG/ML 1 ML VIAL IV SCH ×3 (00:05→15:57)
[2018-01-02] MEDS: HYDROcodone/APAP 10-325MG 1 EACH TAB PO PRN ×3 (00:06→18:34)
[2018-01-02] MEDS: SODIUM CHLORIDE 0.45% 1,000 ML IV SCH ×2 (00:10→11:11)
[2018-01-02] MEDS: IPRATROPIUM-ALBUTEROL 3 ML NEB INHALATION SCH ×4 (06:59→20:24)
[2018-01-02] MEDS: BUDESONIDE 1 MG/2 ML NEBU INHALATION SCH ×2 (06:59→20:24)
[2018-01-02] MEDS: FORMOTEROL FUMARATE 20 MCG/2 ML NEBU INHALATION SCH ×2 (06:59→20:24)
[2018-01-02 07:20] LABS: Glucose,Whole Blood 112 mg/dL (75-99)
[2018-01-02] MEDS: PANTOPRAZOLE 40 MG TABLET PO SCH (07:37)
[2018-01-02] MEDS: DIPHENOX-ATROP 2.5-0.025 MG 1 EACH TAB PO SCH ×4 (07:37→21:14)
[2018-01-02] MEDS: INSULIN ASPART 100 UNIT/ML 1 ML 10 ML VIAL SQ SCH ×4 (07:37→21:15)
[2018-01-02] MEDS: LISINOPRIL 20 MG TAB PO SCH (07:38)
[2018-01-02] MEDS: ENOXAPARIN 40 MG/0.4 ML SYRINGE SQ SCH (07:38)
--- NOTE | 2018-01-02 08:19 | XR ---
EXAMINATION TYPE: XR abdomen 2V DATE OF EXAM: 01/02/2018 CLINICAL DATA: 62 year-old female follow-up obstruction, vomiting last night, [facility] COMPARISON: 12/31/2017 FINDINGS: No evidence for free intraperitoneal air. Air fluid levels persist but show interval decrease in number and there is increasing colonic gas now . No suspicious calcifications seen. IMPRESSION: Decreasing number of air-fluid levels and increasing colonic gas. Findings suggest improving small jessie wel obstruction.
[2018-01-02 09:59] LABS: Basophils % (A) 0 %; Eosinophils % (A) 0 %; HCT 35.5 % (34.0-46.0); HGB 11.5 gm/dL (11.4-16.0); Lymphocytes # (A) 0.5 k/uL (1.0-4.8); Lymphocytes % (A) 5 %; MCH 32.3 pg (25.0-35.0); MCHC 32.4 g/dL (31.0-37.0); MCV 99.8 fL (80.0-100.0); Mean Platelet Volume 8.6; Monocytes # (A) 0.4 k/uL (0-1.0); Monocytes % (A) 4 %; Neutrophils # (A) 9.4 k/uL (1.3-7.7); Neutrophils % (A) 91 %; Platelet Count 232 k/uL (150-450); RBC 3.55 m/uL (3.80-5.40); RDW 13.9 % (11.5-15.5); WBC 10.3 k/uL (3.8-10.6)
[2018-01-02 10:14] LABS: Anion Gap 8 mmol/L; Blood Urea Nitrogen 16 mg/dL (7-17); Calcium 8.5 mg/dL (8.4-10.2); Carbon Dioxide 27 mmol/L (22-30); Chloride 106 mmol/L (98-107); Glucose 125 mg/dL (74-99); Potassium 3.4 mmol/L (3.5-5.1); Sodium 141 mmol/L (137-145)
[2018-01-02] MEDS: THIAMINE 100 MG TAB PO SCH ×2 (11:10→15:57)
[2018-01-02] MEDS: MULTIVITAMINS, THERA 1 EACH TAB PO SCH (11:10)
[2018-01-02 11:47] LABS: Glucose,Whole Blood 117 mg/dL (75-99)
--- NOTE | 2018-01-02 12:08 | P.PN ---
Subjective Progress Note Date: 01/02/18 Principal diagnosis: small bowel obstruction patient says she's doing well. Still having some diarrhea. No nausea or vomiting. Tolerating liquid diet. Denies abdominal pain. Today's x-rays show improvement. Objective - Vital Signs Vital signs: Vital Signs Temp 98.2 F 01/02/18 06:01 Pulse 82 01/02/18 11:17 Resp 18 01/02/18 06:01 BP 163/95 01/02/18 06:01 Pulse Ox 95 01/02/18 06:01 Intake & Output 01/01/18 01/02/18 01/02/18 18:59 06:59 18:59 Other: Voiding Method Toilet # Voids 1 2 # Bowel Movements 2 1 - Exam Abdomen: Soft, nontender, nondistended - Labs CBC & Chem 7: 01/02/18 08:54 01/02/18 08:54 Labs: Abnormal Lab Results - Last 24 Hours (Table) 01/01/18 01/01/18 01/01/18 Range/Units 12:31 17:08 20:37 RBC (3.80-5.40) m/uL Neutrophils # (1.3-7.7) k/uL Lymphocytes # (1.0-4.8) k/uL Potassium (3.5-5.1) mmol/L Glucose (74-99) mg/dL POC Glucose (mg/dL) 120 H 110 H 123 H (75-99) mg/dL 01/02/18 01/02/18 01/02/18 Range/Units 07:19 08:54 08:54 RBC 3.55 L (3.80-5.40) m/uL Neutrophils # 9.4 H (1.3-7.7) k/uL Lymphocytes # 0.5 L (1.0-4.8) k/uL Potassium 3.4 L (3.5-5.1) mmol/L Glucose 125 H (74-99) mg/dL POC Glucose (mg/dL) 112 H (75-99) mg/dL 01/02/18 Range/Units 11:45 RBC (3.80-5.40) m/uL Neutrophils # (1.3-7.7) k/uL Lymphocytes # (1.0-4.8) k/uL Potassium (3.5-5.1) mmol/L Glucose (74-99) mg/dL POC Glucose (mg/dL) 117 H (75-99) mg/dL Assessment and Plan (1) Small bowel obstruction Narrative/Plan: Will increase diet. Increase activity as well. Will follow with you. Current Visit: No Status: Acute Code(s): K56.609 - UNSP INTESTNL OBST, UNSP TO PARTIAL VERSUS COMPLETE OBST SNOMED Code(s): 089672061
[2018-01-02] MEDS: AZITHROMYCIN 500 MG in SODIUM CHLORIDE 0.9% 250 ML IVPB SCH (13:26)
[2018-01-02] MEDS: cefTRIAXone IN SWFI 1,000 MG/10 ML SYRINGE IVP SCH (13:26)
[2018-01-02] MEDS: FUROSEMIDE 40 MG TAB PO SCH (15:57)
--- NOTE | 2018-01-02 16:38 | P.PN ---
Subjective Progress Note Date: 01/02/18 Principal diagnosis: COPD exacerbation complicated with mild purulent tracheobronchitis. Consult dated 12/30/2017 62-year-old female well-known to our service. She has multiple admissions to this hospital for COPD exacerbation. She came to the ER directed by the [facility] practice doctor. She apparently came in with increasing shortness of breath chest tightness wheezing coughing. Producing a small amount of phlegm. The phlegm had slight yellow color to it. Not coughing up any blood. There is no fever or chills. The patient apparently was being treated for an outpatient episode of acute bronchitis. The patient had a chest x-ray which did not reveal any infiltrates. The patient is oxygen dependent. She sees one of my partners in the office. Her primary care physician is Dr. Mijares. In addition to COPD, she has a history of hypertension pneumonia and rheumatoid arthritis vulvar cancer rectal bleeding gout polyps UTI appendiceal cancer and multiple other medical problems and comorbidities. She states that she does not smoke anymore. Heavy smoker for at least 40+ years in the past. On 12/31/2017 is improving. Afebrile, hemodynamically stable. Remains on 2 L per nasal cannula with O2 sat 95%. On today's blood work WBCs up to 34.2, serum sodium is 147, serum potassium 3.4, C. diff was negative, influenza screen was negative. Chest x-ray did not reveal any infiltrates. Patient continues on Zithromax and Rocephin, Pulmicort, Perforomist, DuoNeb and Mucinex. Continue with current plan of treatment. Patient's lung sounds are diminished with end expiratory wheezes. On 01/01/2018 patient seen again in follow-up. Lung sounds remain diminished, with a few end expiratory wheezes. Continues on 3 L per nasal cannula, with O2 sat 98%. Patient is afebrile. Does become dyspneic with activity, recovers with rest. Patient had several episodes of vomiting yesterday, with brownish emesis. She also had a few episodes of diarrhea. There was a concern about ileus versus bowel obstruction. Flat plate of the abdomen was done, which showed multiple air-fluid levels without bowel distention, no pneumoperitoneum. Patient has been seen in consultation by surgery. She remains nothing by mouth at this time. No nausea, no vomiting or diarrhea since today. Abdomen is soft and nontender, a bit distended, but patient states this is her baseline since her open right colectomy last June, and subsequent small bowel obstruction in July 2017 that resolved spontaneously. Surgeries plan on resuming liquid diet, and following up with abdominal x-rays. From pulmonary standpoint patient continues to improve, she is on a combination of Rocephin and Zithromax, nebulized treatments, and IV steroids at at 40 mg every 8 hours. On 01/02/2018 patient seen in follow-up, reports slight improvement with her wheezing and dyspnea, lung sounds remain diminished, with a few end expiratory wheezes. She continues with nausea, but no vomiting. denies abdominal chest x- ray shows improving partial small bowel obstruction. Patient has tolerated clear liquid diet. we'll continue with current plan of care, continue pneumatic coverage, IV steroids, nebulized treatments. Objective - Vital Signs Vital signs: Vital Signs Temp 98.8 F 01/02/18 15:00 Pulse 86 01/02/18 15:51 Resp 20 01/02/18 15:00 BP 197/87 01/02/18 15:00 Pulse Ox 95 01/02/18 15:00 Intake & Output 01/01/18 01/02/18 01/02/18 18:59 06:59 18:59 Other: Voiding Method Toilet # Voids 1 2 2 # Bowel Movements 2 1 1 - Exam GENERAL EXAM: Alert, active, comfortable in no apparent distress. HEAD: Normocephalic/atraumatic. EYES: Normal reaction of pupils, equal size. Conjunctiva pink, sclera white. NOSE: Clear with pink turbinates. THROAT: No erythema or exudates. NECK: No masses, no JVD, no thyroid enlargement, no adenopathy. CHEST: No chest wall deformity. Symmetrical expansion. LUNGS: Diminished air entry bilaterally with a few end expiratory wheezes CVS: Regular rate and rhythm, normal S1 and S2, no gallops, no murmurs, no rubs ABDOMEN: Soft, nontender, slightly distended. No hepatosplenomegaly, normal bowel sounds, no guarding or rigidity. There are healed surgical scars on the abdomen EXTREMITIES: No clubbing, no edema, no cyanosis, 2+ pulses and upper and lower extremities. MUSCULOSKELETAL: Muscle strength and tone normal. SPINE: No scoliosis or deformity SKIN: No rashes CENTRAL NERVOUS SYSTEM: Alert and oriented -3. No focal deficits, tone is normal in all 4 extremities. PSYCHIATRIC: Alert and oriented -3. Appropriate affect. Intact judgment and insight. - Labs CBC & Chem 7: 01/02/18 08:54 01/02/18 08:54 Labs: Abnormal Lab Results - Last 24 Hours (Table) 01/01/18 01/01/18 01/02/18 Range/Units 17:08 20:37 07:19 RBC (3.80-5.40) m/uL Neutrophils # (1.3-7.7) k/uL Lymphocytes # (1.0-4.8) k/uL Potassium (3.5-5.1) mmol/L Glucose (74-99) mg/dL POC Glucose (mg/dL) 110 H 123 H 112 H (75-99) mg/dL 01/02/18 01/02/18 01/02/18 Range/Units 08:54 08:54 11:45 RBC 3.55 L (3.80-5.40) m/uL Neutrophils # 9.4 H (1.3-7.7) k/uL Lymphocytes # 0.5 L (1.0-4.8) k/uL Potassium 3.4 L (3.5-5.1) mmol/L Glucose 125 H (74-99) mg/dL POC Glucose (mg/dL) 117 H (75-99) mg/dL Assessment and Plan Plan: Assessment: #1 COPD exacerbation complicated by mild purulent tracheobronchitis. #2 Vomiting, diarrhea, rule out bowel obstruction versus ileus. Surgery is following #3 Extensive laparoscopic lysis of adhesions with open right colectomy with excision of suprapubic sebaceous cyst in June 2017, and subsequent readmission in July 2017 for small bowel obstruction that resolved spontaneously #4 Previous history of heavy tobacco use #5 History of hypertension #6 History of rheumatoid arthritis #7 History of cancer of the vulva #8 Previous history of gout. #9 History of colitis. #10 History of urinary tract infection #11 History of multiple environmental ALLERGIES #12 History of rectal bleeding Plan: Patient denies worsening dyspnea, reports slight improvement in terms of wheezing. Today's abdominal x-ray showed improving partial small bowel obstruction.continue with current plan of care, continue antibiotic coverage, IV Solu-Medrol and nebulized treatments. I performed a history & physical examination of the patient and discussed their management with my nurse practitioner, Savanah Mart. I reviewed the nurse practitioner's note and agree with the documented findings and plan of care. Lung sounds are positive for diminished air entry bilaterally and minimal end expiratory wheezes. The findings and the impression was discussed with the patient. I attest to the documentation by the nurse practitioner. Time with Patient: Less than 30
[2018-01-02 17:18] LABS: Glucose,Whole Blood 107 mg/dL (75-99)
[2018-01-02] MEDS: NYSTATIN 100,000 UNIT/ML SUSP 500,000 UNIT/5 ML CUP PO SCH ×2 (17:51→21:14)
--- NOTE | 2018-01-02 19:10 | P.PN ---
Subjective Progress Note Date: 01/02/18 Progress note being dictated for Dr. Calixto Interval history: This is a 62-year-old female admitted with acute complications COPD exacerbation with purulent tracheobronchitis and multiple other medical issues. T-max 99.1. White count up to 34.2. Maintained on Zithromax, Rocephin, nebulized bronchodilators. Breathing improving, maintaining O2 sats in the mid 90s on 2 L nasal cannula. Complains of nausea with emesis 2, diarrhea. Tested negative for C. difficile colitis. 01/01/2018 abdominal x-rays reported ileus versus partial small bowel obstruction. Denies abdominal pain. Evaluated by general surgery. Positive bowel movement, passing flatus. Diet advanced to full liquids. Consumed two lunch trays, now complaining of nausea, no emesis. Denies chest pain, palpitations or increased shortness of breath. Afebrile, leukocytosis significantly improved. Breathing continues to improve. 01/02/18 . Abdominal x-ray this morning reporting improvement. Positive bowel movement last night. Denies abdominal pain. Tolerating full liquid diet .Denies nausea vomiting. Wheezing improving. Afebrile. Objective - Vital Signs Vital signs: Vital Signs Temp 98.8 F 01/02/18 15:00 Pulse 86 01/02/18 15:51 Resp 20 01/02/18 15:00 BP 197/87 01/02/18 15:00 Pulse Ox 95 01/02/18 15:00 Intake & Output 01/02/18 01/02/18 01/03/18 06:59 18:59 06:59 Other: Voiding Method Toilet # Voids 2 2 # Bowel Movements 1 1 - Exam PHYSICAL EXAM: VITAL SIGNS: As above GENERAL: Sitting up in bed, no acute distress HEENT: Conjunctivae normal. eyes normal. Oral mucosa moist NECK: No JVD. No thyroid enlargement. No LNs CARDIOVASCULAR: S1, S2 muffled. No murmur RESPIRATION: Breath sounds diminished in the bases. No rhonchi or crackles. Improving scattered Expiratory wheezing ABDOMEN: Soft, nontender . No guarding. no masses palpable.Bowel sounds heard. LEGS: No edema. no swelling PSYCHIATRY: Alert and oriented -3, mood and affect normal. NERVOUS SYSTEM: Cranial N 2-12 grossly normal. Moves all 4 limbs. Diffuse weakness No focal deficits. Skin: no ulcer no rash Joints: No active swelling. No inflammation. Lymphatic system. No LN neck axilla or groin. - Labs CBC & Chem 7: 01/02/18 08:54 01/02/18 08:54 Labs: Abnormal Lab Results - Last 24 Hours (Table) 01/01/18 01/02/18 01/02/18 Range/Units 20:37 07:19 08:54 RBC 3.55 L (3.80-5.40) m/uL Neutrophils # 9.4 H (1.3-7.7) k/uL Lymphocytes # 0.5 L (1.0-4.8) k/uL Potassium (3.5-5.1) mmol/L Glucose (74-99) mg/dL POC Glucose (mg/dL) 123 H 112 H (75-99) mg/dL 01/02/18 01/02/18 01/02/18 Range/Units 08:54 11:45 17:17 RBC (3.80-5.40) m/uL Neutrophils # (1.3-7.7) k/uL Lymphocytes # (1.0-4.8) k/uL Potassium 3.4 L (3.5-5.1) mmol/L Glucose 125 H (74-99) mg/dL POC Glucose (mg/dL) 117 H 107 H (75-99) mg/dL Assessment and Plan Assessment: 1. Acute COPD exacerbation, purulent tracheobronchitis 2. Leukocytosis 3. Hypertension 4. N/V/D, possibly partial small bowel obstruction versus ileus 3. Oral candidiasis Plan: Continue on current medication regime ,monitoring and symptomatic treatment. Potassium being supplemented per replacement protocol. Further Diet advancement as per surgery .Maintain nebulized bronchodilators, steroids, antibiotics. Increase ambulation as tolerated. Nystatin swish and swallow added to med regime. Discharge planning in progress for tomorrow. The impression and plan of care has been dictated as directed. : I performed a history and examination of this patient, discussed the same with the dictator. I agree with the dictator's note ,documented as a scribe. Any additional findings or plans will be noted.
[2018-01-02 20:49] LABS: Glucose,Whole Blood 118 mg/dL (75-99)
[2018-01-02] MEDS: MONTELUKAST 10 MG TAB PO SCH (21:14)
[2018-01-02] MEDS: TEMAZEPAM 15 MG CAP PO PRN (21:14)
[2018-01-03] MEDS: methylPREDNISolone SOD SUCCI 40 MG/ML 1 ML VIAL IV SCH ×3 (01:11→15:35)
[2018-01-03] MEDS: SODIUM CHLORIDE 0.45% 1,000 ML IV SCH ×3 (01:11→13:29)
[2018-01-03] MEDS: HYDROcodone/APAP 10-325MG 1 EACH TAB PO PRN ×2 (01:20→13:59)
[2018-01-03 07:23] LABS: Glucose,Whole Blood 106 mg/dL (75-99)
[2018-01-03] MEDS: INSULIN ASPART 100 UNIT/ML 1 ML 10 ML VIAL SQ SCH ×4 (07:25→21:23)
[2018-01-03] MEDS: NYSTATIN 100,000 UNIT/ML SUSP 500,000 UNIT/5 ML CUP PO SCH ×4 (07:35→21:27)
[2018-01-03] MEDS: PANTOPRAZOLE 40 MG TABLET PO SCH (07:36)
[2018-01-03] MEDS: ENOXAPARIN 40 MG/0.4 ML SYRINGE SQ SCH (07:36)
[2018-01-03] MEDS: FUROSEMIDE 40 MG TAB PO SCH (07:36)
[2018-01-03] MEDS: LISINOPRIL 20 MG TAB PO SCH (07:36)
[2018-01-03] MEDS: DIPHENOX-ATROP 2.5-0.025 MG 1 EACH TAB PO SCH ×4 (07:36→21:27)
[2018-01-03] MEDS: IPRATROPIUM-ALBUTEROL 3 ML NEB INHALATION SCH ×4 (08:46→20:51)
[2018-01-03] MEDS: FORMOTEROL FUMARATE 20 MCG/2 ML NEBU INHALATION SCH ×2 (08:47→20:51)
[2018-01-03] MEDS: BUDESONIDE 1 MG/2 ML NEBU INHALATION SCH ×2 (08:47→20:52)
[2018-01-03] MEDS ORDERED: amLODIPine 5 MG TAB PO SCH (09:15)
[2018-01-03 09:27] LABS: Basophils % (A) 0 %; Eosinophils % (A) 0 %; HCT 38.2 % (34.0-46.0); HGB 12.2 gm/dL (11.4-16.0); Lymphocytes # (A) 0.6 k/uL (1.0-4.8); Lymphocytes % (A) 4 %; MCHC 32.1 g/dL (31.0-37.0); MCV 99.8 fL (80.0-100.0); Mean Platelet Volume 8.6; Monocytes # (A) 0.5 k/uL (0-1.0); Monocytes % (A) 3 %; Neutrophils % (A) 92 %; Platelet Count 273 k/uL (150-450); RBC 3.83 m/uL (3.80-5.40); RDW 13.9 % (11.5-15.5); WBC 13.1 k/uL (3.8-10.6)
[2018-01-03 09:46] LABS: Anion Gap 9 mmol/L; Blood Urea Nitrogen 14 mg/dL (7-17); Calcium 8.3 mg/dL (8.4-10.2); Carbon Dioxide 30 mmol/L (22-30); Chloride 104 mmol/L (98-107); Glucose 92 mg/dL (74-99); Potassium 3.3 mmol/L (3.5-5.1); Sodium 143 mmol/L (137-145)
[2018-01-03] MEDS: AZITHROMYCIN 500 MG TAB PO SCH (11:52)
[2018-01-03] MEDS: THIAMINE 100 MG TAB PO SCH ×2 (11:52→17:22)
[2018-01-03] MEDS: MULTIVITAMINS, THERA 1 EACH TAB PO SCH (11:52)
[2018-01-03 11:55] LABS: Glucose,Whole Blood 133 mg/dL (75-99)
[2018-01-03] MEDS: cefTRIAXone IN SWFI 1,000 MG/10 ML SYRINGE IVP SCH (13:59)
--- NOTE | 2018-01-03 14:53 | P.PN ---
<Savanah Mart M - Last Filed: 01/03/18 14:50> Subjective Progress Note Date: 01/03/18 Principal diagnosis: COPD exacerbation complicated with mild purulent tracheobronchitis. Consult dated 12/30/2017 62-year-old female well-known to our service. She has multiple admissions to this hospital for COPD exacerbation. She came to the ER directed by the [facility] practice doctor. She apparently came in with increasing shortness of breath chest tightness wheezing coughing. Producing a small amount of phlegm. The phlegm had slight yellow color to it. Not coughing up any blood. There is no fever or chills. The patient apparently was being treated for an outpatient episode of acute bronchitis. The patient had a chest x-ray which did not reveal any infiltrates. The patient is oxygen dependent. She sees one of my partners in the office. Her primary care physician is Dr. Mijares. In addition to COPD, she has a history of hypertension pneumonia and rheumatoid arthritis vulvar cancer rectal bleeding gout polyps UTI appendiceal cancer and multiple other medical problems and comorbidities. She states that she does not smoke anymore. Heavy smoker for at least 40+ years in the past. On 12/31/2017 is improving. Afebrile, hemodynamically stable. Remains on 2 L per nasal cannula with O2 sat 95%. On today's blood work WBCs up to 34.2, serum sodium is 147, serum potassium 3.4, C. diff was negative, influenza screen was negative. Chest x-ray did not reveal any infiltrates. Patient continues on Zithromax and Rocephin, Pulmicort, Perforomist, DuoNeb and Mucinex. Continue with current plan of treatment. Patient's lung sounds are diminished with end expiratory wheezes. On 01/01/2018 patient seen again in follow-up. Lung sounds remain diminished, with a few end expiratory wheezes. Continues on 3 L per nasal cannula, with O2 sat 98%. Patient is afebrile. Does become dyspneic with activity, recovers with rest. Patient had several episodes of vomiting yesterday, with brownish emesis. She also had a few episodes of diarrhea. There was a concern about ileus versus bowel obstruction. Flat plate of the abdomen was done, which showed multiple air-fluid levels without bowel distention, no pneumoperitoneum. Patient has been seen in consultation by surgery. She remains nothing by mouth at this time. No nausea, no vomiting or diarrhea since today. Abdomen is soft and nontender, a bit distended, but patient states this is her baseline since her open right colectomy last June, and subsequent small bowel obstruction in July 2017 that resolved spontaneously. Surgeries plan on resuming liquid diet, and following up with abdominal x-rays. From pulmonary standpoint patient continues to improve, she is on a combination of Rocephin and Zithromax, nebulized treatments, and IV steroids at at 40 mg every 8 hours. On 01/02/2018 patient seen in follow-up, reports slight improvement with her wheezing and dyspnea, lung sounds remain diminished, with a few end expiratory wheezes. She continues with nausea, but no vomiting. denies abdominal chest x- ray shows improving partial small bowel obstruction. Patient has tolerated clear liquid diet. we'll continue with current plan of care, continue pneumatic coverage, IV steroids, nebulized treatments. On 2017 patient seen in follow-up. Continues to improve, no further episodes of vomiting, she is tolerating regular diet. Still has some residual diarrhea, but this is improving. From pulmonary standpoint she remains stable, lung sounds are diminished with a few scattered end expiratory wheezes. She has been ambulating in the [place], on room air, tolerating it well. Denies any increased chest congestion or sputum production. Signs remain stable, on 3 L per nasal cannula O2 sat is 97%. Continue current plan of care. Objective - Vital Signs Vital signs: Vital Signs Temp 98.3 F 01/03/18 07:00 Pulse 92 01/03/18 12:34 Resp 16 01/03/18 12:34 BP 159/75 01/03/18 10:31 Pulse Ox 97 01/03/18 12:24 Intake & Output 01/02/18 01/03/18 01/03/18 18:59 06:59 18:59 Intake Total 1100 Balance 1100 Intake: Oral 1100 Other: Voiding Method Toilet # Voids 2 3 2 # Bowel Movements 1 2 - Exam GENERAL EXAM: Alert, active, comfortable in no apparent distress. HEAD: Normocephalic/atraumatic. EYES: Normal reaction of pupils, equal size. Conjunctiva pink, sclera white. NOSE: Clear with pink turbinates. THROAT: No erythema or exudates. NECK: No masses, no JVD, no thyroid enlargement, no adenopathy. CHEST: No chest wall deformity. Symmetrical expansion. LUNGS: Diminished air entry bilaterally with a few end expiratory wheezes CVS: Regular rate and rhythm, normal S1 and S2, no gallops, no murmurs, no rubs ABDOMEN: Soft, nontender, slightly distended. No hepatosplenomegaly, normal bowel sounds, no guarding or rigidity. There are healed surgical scars on the abdomen EXTREMITIES: No clubbing, no edema, no cyanosis, 2+ pulses and upper and lower extremities. MUSCULOSKELETAL: Muscle strength and tone normal. SPINE: No scoliosis or deformity SKIN: No rashes CENTRAL NERVOUS SYSTEM: Alert and oriented -3. No focal deficits, tone is normal in all 4 extremities. PSYCHIATRIC: Alert and oriented -3. Appropriate affect. Intact judgment and insight. - Labs CBC & Chem 7: 01/03/18 07:59 01/03/18 07:59 Labs: Abnormal Lab Results - Last 24 Hours (Table) 01/02/18 01/02/18 01/03/18 Range/Units 17:17 20:48 07:21 WBC (3.8-10.6) k/uL Neutrophils # (1.3-7.7) k/uL Lymphocytes # (1.0-4.8) k/uL Potassium (3.5-5.1) mmol/L POC Glucose (mg/dL) 107 H 118 H 106 H (75-99) mg/dL Calcium (8.4-10.2) mg/dL 01/03/18 01/03/18 01/03/18 Range/Units 07:59 07:59 11:53 WBC 13.1 H (3.8-10.6) k/uL Neutrophils # 12.0 H (1.3-7.7) k/uL Lymphocytes # 0.6 L (1.0-4.8) k/uL Potassium 3.3 L (3.5-5.1) mmol/L POC Glucose (mg/dL) 133 H (75-99) mg/dL Calcium 8.3 L (8.4-10.2) mg/dL Assessment and Plan Plan: Assessment: #1 COPD exacerbation complicated by mild purulent tracheobronchitis. #2 Vomiting, diarrhea, rule out bowel obstruction versus ileus. Surgery is following #3 Extensive laparoscopic lysis of adhesions with open right colectomy with excision of suprapubic sebaceous cyst in June 2017, and subsequent readmission in July 2017 for small bowel obstruction that resolved spontaneously #4 Previous history of heavy tobacco use #5 History of hypertension #6 History of rheumatoid arthritis #7 History of cancer of the vulva #8 Previous history of gout. #9 History of colitis. #10 History of urinary tract infection #11 History of multiple environmental ALLERGIES #12 History of rectal bleeding Plan: No further episodes of emesis, still has some residual diarrhea, but tolerating regular diet. Standpoint she continues to improve, she is tolerating ambulation , vital signs are stable, continue current plan of care continue antibiotics, nebulized treatments, Solu-Medrol, and Mucinex. I performed a history & physical examination of the patient and discussed their management with my nurse practitioner, Savanah Mart. I reviewed the nurse practitioner's note and agree with the documented findings and plan of care. Lung sounds are positive for diminished air entry bilaterally and minimal end expiratory wheezes. The findings and the impression was discussed with the patient. I attest to the documentation by the nurse practitioner. Time with Patient: Less than 30 <Jose Elias Goodman - Last Filed: 01/03/18 15:52> Objective - Vital Signs Vital signs: Vital Signs Temp 98.8 F 01/03/18 15:00 Pulse 101 H 01/03/18 15:00 Resp 18 01/03/18 15:00 BP 144/70 01/03/18 15:00 Pulse Ox 96 01/03/18 15:00 Intake & Output 01/02/18 01/03/18 01/03/18 18:59 06:59 18:59 Intake Total 1100 Balance 1100 Intake: Oral 1100 Other: Voiding Method Toilet # Voids 2 3 2 # Bowel Movements 1 2 - Labs CBC & Chem 7: 01/03/18 07:59 01/03/18 07:59 Labs: Abnormal Lab Results - Last 24 Hours (Table) 01/02/18 01/02/18 01/03/18 Range/Units 17:17 20:48 07:21 WBC (3.8-10.6) k/uL Neutrophils # (1.3-7.7) k/uL Lymphocytes # (1.0-4.8) k/uL Potassium (3.5-5.1) mmol/L POC Glucose (mg/dL) 107 H 118 H 106 H (75-99) mg/dL Calcium (8.4-10.2) mg/dL 01/03/18 01/03/18 01/03/18 Range/Units 07:59 07:59 11:53 WBC 13.1 H (3.8-10.6) k/uL Neutrophils # 12.0 H (1.3-7.7) k/uL Lymphocytes # 0.6 L (1.0-4.8) k/uL Potassium 3.3 L (3.5-5.1) mmol/L POC Glucose (mg/dL) 133 H (75-99) mg/dL Calcium 8.3 L (8.4-10.2) mg/dL Assessment and Plan Plan: This is a joint evaluations was done along with a nurse practitioner. The patient is doing well. The patient is having adequate bowel activity and has small bowel partial obstruction has recovered. The patient has no nausea or vomiting. No abdominal pain. No diarrhea for now. Her COPD exacerbations also improving. He is emanating in the hallway. Anticipate discharge within next 24-48 hours.
[2018-01-03 17:00] LABS: Glucose,Whole Blood 139 mg/dL (75-99)
[2018-01-03] MEDS: ALPRAZolam 0.25 MG TAB PO PRN (17:25)
--- NOTE | 2018-01-03 19:00 | P.PN ---
Subjective Progress Note Date: 01/03/18 Principal diagnosis: small bowel obstruction Patient had some abdominal cramps earlier today associated with diarrhea. Mild bloating earlier today. No nausea or vomiting. Tolerating diet. No pain currently. Objective - Vital Signs Vital signs: Vital Signs Temp 98.8 F 01/03/18 15:00 Pulse 91 01/03/18 16:13 Resp 16 01/03/18 16:13 BP 144/70 01/03/18 15:00 Pulse Ox 96 01/03/18 15:00 Intake & Output 01/02/18 01/03/18 01/03/18 18:59 06:59 18:59 Intake Total 1100 Balance 1100 Intake: Oral 1100 Other: Voiding Method Toilet # Voids 2 3 2 # Bowel Movements 1 2 - Exam Abdomen: Soft, minimally distended, nontender - Labs CBC & Chem 7: 01/03/18 07:59 01/03/18 07:59 Labs: Abnormal Lab Results - Last 24 Hours (Table) 01/02/18 01/03/18 01/03/18 Range/Units 20:48 07:21 07:59 WBC 13.1 H (3.8-10.6) k/uL Neutrophils # 12.0 H (1.3-7.7) k/uL Lymphocytes # 0.6 L (1.0-4.8) k/uL Potassium (3.5-5.1) mmol/L POC Glucose (mg/dL) 118 H 106 H (75-99) mg/dL Calcium (8.4-10.2) mg/dL 01/03/18 01/03/18 01/03/18 Range/Units 07:59 11:53 16:58 WBC (3.8-10.6) k/uL Neutrophils # (1.3-7.7) k/uL Lymphocytes # (1.0-4.8) k/uL Potassium 3.3 L (3.5-5.1) mmol/L POC Glucose (mg/dL) 133 H 139 H (75-99) mg/dL Calcium 8.3 L (8.4-10.2) mg/dL Assessment and Plan (1) Small bowel obstruction Narrative/Plan: Continue dysphagia diet. Continue ambulation. We'll follow with you. Current Visit: No Status: Acute Code(s): K56.609 - UNSP INTESTNL OBST, UNSP TO PARTIAL VERSUS COMPLETE OBST SNOMED Code(s): 322375234
[2018-01-03 21:15] LABS: Glucose,Whole Blood 130 mg/dL (75-99)
[2018-01-03] MEDS: MONTELUKAST 10 MG TAB PO SCH (21:27)
[2018-01-03] MEDS: FUROSEMIDE 40 MG TAB PO PRN (21:27)
[2018-01-03] MEDS: TEMAZEPAM 15 MG CAP PO PRN (21:27)
[2018-01-04] MEDS: HYDROcodone/APAP 10-325MG 1 EACH TAB PO PRN ×3 (00:03→19:46)
[2018-01-04] MEDS: methylPREDNISolone SOD SUCCI 40 MG/ML 1 ML VIAL IV SCH ×3 (00:03→20:46)
[2018-01-04 07:12] LABS: Glucose,Whole Blood 125 mg/dL (75-99)
[2018-01-04] MEDS: SODIUM CHLORIDE 0.45% 1,000 ML IV SCH (07:58)
[2018-01-04] MEDS: ENOXAPARIN 40 MG/0.4 ML SYRINGE SQ SCH (07:59)
[2018-01-04] MEDS: PANTOPRAZOLE 40 MG TABLET PO SCH (07:59)
[2018-01-04] MEDS: INSULIN ASPART 100 UNIT/ML 1 ML 10 ML VIAL SQ SCH ×4 (07:59→21:45)
[2018-01-04] MEDS: NYSTATIN 100,000 UNIT/ML SUSP 500,000 UNIT/5 ML CUP PO SCH ×4 (08:00→20:46)
[2018-01-04] MEDS: FUROSEMIDE 40 MG TAB PO SCH (08:00)
[2018-01-04] MEDS: LISINOPRIL 20 MG TAB PO SCH (08:00)
[2018-01-04 08:31] LABS: Basophils % (A) 0 %; Eosinophils % (A) 0 %; HCT 38.6 % (34.0-46.0); HGB 12.7 gm/dL (11.4-16.0); Lymphocytes # (A) 0.7 k/uL (1.0-4.8); Lymphocytes % (A) 6 %; MCHC 32.8 g/dL (31.0-37.0); MCV 97.5 fL (80.0-100.0); Mean Platelet Volume 8.3; Monocytes # (A) 0.3 k/uL (0-1.0); Monocytes % (A) 3 %; Neutrophils % (A) 90 %; Platelet Count 297 k/uL (150-450); RBC 3.96 m/uL (3.80-5.40); WBC 11.1 k/uL (3.8-10.6)
[2018-01-04 09:06] LABS: Blood Urea Nitrogen 14 mg/dL (7-17); Calcium 8.3 mg/dL (8.4-10.2); Chloride 94 mmol/L (98-107); Glucose 111 mg/dL (74-99); Sodium 142 mmol/L (137-145)
[2018-01-04] MEDS: DIPHENOX-ATROP 2.5-0.025 MG 1 EACH TAB PO SCH ×2 (09:08→13:23)
[2018-01-04] MEDS: IPRATROPIUM-ALBUTEROL 3 ML NEB INHALATION SCH ×4 (09:20→18:58)
[2018-01-04] MEDS: FORMOTEROL FUMARATE 20 MCG/2 ML NEBU INHALATION SCH ×2 (09:20→18:58)
[2018-01-04] MEDS: BUDESONIDE 1 MG/2 ML NEBU INHALATION SCH ×2 (09:20→18:58)
[2018-01-04 09:45] LABS: Potassium 2.8 mmol/L (3.5-5.1)
[2018-01-04 09:47] LABS: Anion Gap 6 mmol/L; Carbon Dioxide 42 mmol/L (22-30)
[2018-01-04] MEDS ORDERED: Potassium Replacement Protocol 1 EACH MISC MISCELLANE PRN (10:09)
[2018-01-04] MEDS ORDERED: POTASSIUM CHLORIDE 20 MEQ in WATER FOR INJECTION 1 100ML.BAG IVPB STA (10:14)
[2018-01-04] MEDS ORDERED: Magnesium Replacement Protocol 1 EACH MISC MISCELLANE PRN (10:20)
--- NOTE | 2018-01-04 10:35 | P.PN ---
Subjective Progress Note Date: 01/03/18 Progress note being dictated for Dr. Calixto Interval history: This is a 62-year-old female admitted with acute complications COPD exacerbation with purulent tracheobronchitis and multiple other medical issues. T-max 99.1. White count up to 34.2. Maintained on Zithromax, Rocephin, nebulized bronchodilators. Breathing improving, maintaining O2 sats in the mid 90s on 2 L nasal cannula. Complains of nausea with emesis 2, diarrhea. Tested negative for C. difficile colitis. 01/01/2018 abdominal x-rays reported ileus versus partial small bowel obstruction. Denies abdominal pain. Evaluated by general surgery. Positive bowel movement, passing flatus. Diet advanced to full liquids. Consumed two lunch trays, now complaining of nausea, no emesis. Denies chest pain, palpitations or increased shortness of breath. Afebrile, leukocytosis significantly improved. Breathing continues to improve. 01/02/18 . Abdominal x-ray this morning reporting improvement. Positive bowel movement last night. Denies abdominal pain. Tolerating full liquid diet .Denies nausea vomiting. Wheezing improving. Afebrile. 01/03/18 breathing continues to improve, less wheezing. Ambulated in the hallway for the first time, tolerated exertion well. Maintaining O2 sats in the high 90s on 2 L nasal cannula. Good diet intake, tolerating dysphagia diet with no nausea or vomiting. No pain. Reports diarrhea, lessening. Tested negative for C. difficile colitis. Denies chest pain, palpitations or increasing shortness of breath. Objective - Vital Signs Vital signs: Vital Signs Temp 98.8 F 01/03/18 15:00 Pulse 90 01/03/18 16:03 Resp 16 01/03/18 16:03 BP 144/70 01/03/18 15:00 Pulse Ox 96 01/03/18 15:00 Intake & Output 01/02/18 01/03/18 01/03/18 18:59 06:59 18:59 Intake Total 1100 Balance 1100 Intake: Oral 1100 Other: Voiding Method Toilet # Voids 2 3 2 # Bowel Movements 1 2 - Exam PHYSICAL EXAM: VITAL SIGNS: As above GENERAL: Sitting up at side of bed, no acute distress HEENT: Conjunctivae normal. eyes normal. Oral mucosa moist NECK: No JVD. No thyroid enlargement. No LNs CARDIOVASCULAR: S1, S2 muffled. No murmur RESPIRATION: Improving air entry. Breath sounds diminished in the bases. No rhonchi or crackles. Improving Expiratory wheezing ABDOMEN: Soft, nontender . No guarding. no masses palpable.Bowel sounds heard. LEGS: No edema. no swelling PSYCHIATRY: Alert and oriented -3, mood and affect normal. NERVOUS SYSTEM: Cranial N 2-12 grossly normal. Moves all 4 limbs. No focal deficits. Skin: no ulcer no rash Joints: No active swelling. No inflammation. Lymphatic system. No LN neck axilla or groin. - Labs CBC & Chem 7: 01/04/18 07:54 01/04/18 07:54 Labs: Abnormal Lab Results - Last 24 Hours (Table) 01/02/18 01/02/18 01/03/18 Range/Units 17:17 20:48 07:21 WBC (3.8-10.6) k/uL Neutrophils # (1.3-7.7) k/uL Lymphocytes # (1.0-4.8) k/uL Potassium (3.5-5.1) mmol/L POC Glucose (mg/dL) 107 H 118 H 106 H (75-99) mg/dL Calcium (8.4-10.2) mg/dL 01/03/18 01/03/18 01/03/18 Range/Units 07:59 07:59 11:53 WBC 13.1 H (3.8-10.6) k/uL Neutrophils # 12.0 H (1.3-7.7) k/uL Lymphocytes # 0.6 L (1.0-4.8) k/uL Potassium 3.3 L (3.5-5.1) mmol/L POC Glucose (mg/dL) 133 H (75-99) mg/dL Calcium 8.3 L (8.4-10.2) mg/dL Assessment and Plan Assessment: 1. Acute COPD exacerbation, purulent tracheobronchitis 2. Leukocytosis 3. Hypertension 4. N/V/D, possibly partial small bowel obstruction versus ileus 3. Oral candidiasis Plan: Continue on current medication regime ,monitoring and symptomatic treatment. Increase ambulation as tolerated. Oxygen can continue being weaned down,currently patient is 97% on 3 L nasal cannula. Potassium being supplemented per replacement protocol. Close monitoring of electrolytes with repeat labs ordered for a.m. Maintain dysphagia diet with aspiration precautions.Continue on nebulized bronchodilators, steroids, antibiotics. Discharge planning in progress for tomorrow. The impression and plan of care has been dictated as directed. : I performed a history and examination of this patient, discussed the same with the dictator. I agree with the dictator's note ,documented as a scribe. Any additional findings or plans will be noted.
[2018-01-04] MEDS: POTASSIUM CHLORIDE ER 20 MEQ TAB.ER PO SCH ×3 (11:07→13:24)
[2018-01-04] MEDS: MULTIVITAMINS, THERA 1 EACH TAB PO SCH (11:10)
[2018-01-04] MEDS: AZITHROMYCIN 500 MG TAB PO SCH (11:11)
[2018-01-04] MEDS: THIAMINE 100 MG TAB PO SCH ×2 (11:11→16:11)
[2018-01-04 12:17] LABS: Glucose,Whole Blood 184 mg/dL (75-99)
[2018-01-04] MEDS: cefTRIAXone IN SWFI 1,000 MG/10 ML SYRINGE IVP SCH (13:24)
--- NOTE | 2018-01-04 13:54 | P.PN ---
<Chapis Ramirez - Last Filed: 01/04/18 13:46> Subjective Progress Note Date: 01/04/18 62-year-old female seen and examined. Patient's chief complaint this morning is abdominal cramping. Patient states she has had 4 loose stools since 8 AM. Reports no nausea vomiting. Stool for C. diff not detected Objective - Vital Signs Vital signs: Vital Signs Temp 98.2 F 01/04/18 07:00 Pulse 86 01/04/18 11:53 Resp 18 01/04/18 07:00 BP 157/80 01/04/18 07:00 Pulse Ox 94 L 01/04/18 07:00 Intake & Output 01/03/18 01/04/18 01/04/18 18:59 06:59 18:59 Intake Total 1100 Balance 1100 Intake: Oral 1100 Other: # Voids 2 2 4 # Bowel Movements 4 - Exam Exam Abdomen purple ecchymotic bruising lower abdominal wall soft not tender mildly distended active bowel tones states urinating no difficulty states has had 4 loose stools this morning no nausea no vomiting complains of abdominal bloating - Labs CBC & Chem 7: 01/04/18 07:54 01/04/18 07:54 Labs: Abnormal Lab Results - Last 24 Hours (Table) 01/03/18 01/03/18 01/04/18 Range/Units 16:58 21:08 07:09 WBC (3.8-10.6) k/uL Neutrophils # (1.3-7.7) k/uL Lymphocytes # (1.0-4.8) k/uL Potassium (3.5-5.1) mmol/L Chloride (98-107) mmol/L Carbon Dioxide (22-30) mmol/L Glucose (74-99) mg/dL POC Glucose (mg/dL) 139 H 130 H 125 H (75-99) mg/dL Calcium (8.4-10.2) mg/dL 01/04/18 01/04/18 01/04/18 Range/Units 07:54 07:54 12:14 WBC 11.1 H (3.8-10.6) k/uL Neutrophils # 10.0 H (1.3-7.7) k/uL Lymphocytes # 0.7 L (1.0-4.8) k/uL Potassium 2.8 L* (3.5-5.1) mmol/L Chloride 94 L (98-107) mmol/L Carbon Dioxide 42 H* (22-30) mmol/L Glucose 111 H (74-99) mg/dL POC Glucose (mg/dL) 184 H (75-99) mg/dL Calcium 8.3 L (8.4-10.2) mg/dL Assessment and Plan Assessment: Impression Present on admission nausea vomiting frequent stooling with no evidence of C. diff Abdominal imaging done on December 31 showed air-fluid levels suspicious for possible small bowel obstruction not ruled out A recent admission July for partial small bowel obstruction that resolved spontaneously History of an open right colectomy June 2017 Hypokalemia plan Continue IV fluid for hydration Potassium replaced Continue dysphagia diet Encourage ambulation Will follow with you The above impression and plan of care have been discussed and directed by signing physician. Chapis Ramirez nurse practitioner acting as scribe for signing physician. <Brenden Burger - Last Filed: 01/04/18 17:20> Objective - Vital Signs Vital signs: Vital Signs Temp 97.8 F 01/04/18 15:00 Pulse 88 01/04/18 15:50 Resp 16 01/04/18 15:00 BP 150/78 01/04/18 15:00 Pulse Ox 94 L 01/04/18 15:00 Intake & Output 01/03/18 01/04/18 01/04/18 18:59 06:59 18:59 Intake Total 1100 Balance 1100 Weight 74.389 kg Intake: Oral 1100 Other: # Voids 2 2 4 # Bowel Movements 4 - Labs CBC & Chem 7: 01/04/18 07:54 01/04/18 15:00 Labs: Abnormal Lab Results - Last 24 Hours (Table) 01/03/18 01/04/18 01/04/18 Range/Units 21:08 07:09 07:54 WBC 11.1 H (3.8-10.6) k/uL Neutrophils # 10.0 H (1.3-7.7) k/uL Lymphocytes # 0.7 L (1.0-4.8) k/uL Potassium (3.5-5.1) mmol/L Chloride (98-107) mmol/L Carbon Dioxide (22-30) mmol/L Glucose (74-99) mg/dL POC Glucose (mg/dL) 130 H 125 H (75-99) mg/dL Calcium (8.4-10.2) mg/dL 01/04/18 01/04/18 01/04/18 Range/Units 07:54 12:14 15:00 WBC (3.8-10.6) k/uL Neutrophils # (1.3-7.7) k/uL Lymphocytes # (1.0-4.8) k/uL Potassium 2.8 L* 3.2 L (3.5-5.1) mmol/L Chloride 94 L (98-107) mmol/L Carbon Dioxide 42 H* (22-30) mmol/L Glucose 111 H (74-99) mg/dL POC Glucose (mg/dL) 184 H (75-99) mg/dL Calcium 8.3 L (8.4-10.2) mg/dL Assessment and Plan Assessment: As above. Patient doing better. No abdominal pain. Tolerating diet. Diarrhea is improved. We'll sign off. Please contact if needed. (1) Small bowel obstruction Current Visit: No Status: Acute Code(s): K56.609 - UNSP INTESTNL OBST, UNSP TO PARTIAL VERSUS COMPLETE OBST SNOMED Code(s): 049071281
[2018-01-04] MEDS ORDERED: POTASSIUM CHLORIDE 20 MEQ in SODIUM CHLORIDE 0.9% 100 ML IVPB STA (15:54)
[2018-01-04] MEDS: CHOLESTYRAMINE (WITH SUGAR) 4 GM PACKET PO SCH (16:11)
[2018-01-04 17:22] LABS: Glucose,Whole Blood 122 mg/dL (75-99)
--- NOTE | 2018-01-04 17:39 | P.PN ---
Subjective Progress Note Date: 01/04/18 Principal diagnosis: COPD exacerbation complicated with mild purulent tracheobronchitis. Consult dated 12/30/2017 62-year-old female well-known to our service. She has multiple admissions to this hospital for COPD exacerbation. She came to the ER directed by the [facility] practice doctor. She apparently came in with increasing shortness of breath chest tightness wheezing coughing. Producing a small amount of phlegm. The phlegm had slight yellow color to it. Not coughing up any blood. There is no fever or chills. The patient apparently was being treated for an outpatient episode of acute bronchitis. The patient had a chest x-ray which did not reveal any infiltrates. The patient is oxygen dependent. She sees one of my partners in the office. Her primary care physician is Dr. Mijares. In addition to COPD, she has a history of hypertension pneumonia and rheumatoid arthritis vulvar cancer rectal bleeding gout polyps UTI appendiceal cancer and multiple other medical problems and comorbidities. She states that she does not smoke anymore. Heavy smoker for at least 40+ years in the past. On 12/31/2017 is improving. Afebrile, hemodynamically stable. Remains on 2 L per nasal cannula with O2 sat 95%. On today's blood work WBCs up to 34.2, serum sodium is 147, serum potassium 3.4, C. diff was negative, influenza screen was negative. Chest x-ray did not reveal any infiltrates. Patient continues on Zithromax and Rocephin, Pulmicort, Perforomist, DuoNeb and Mucinex. Continue with current plan of treatment. Patient's lung sounds are diminished with end expiratory wheezes. On 01/01/2018 patient seen again in follow-up. Lung sounds remain diminished, with a few end expiratory wheezes. Continues on 3 L per nasal cannula, with O2 sat 98%. Patient is afebrile. Does become dyspneic with activity, recovers with rest. Patient had several episodes of vomiting yesterday, with brownish emesis. She also had a few episodes of diarrhea. There was a concern about ileus versus bowel obstruction. Flat plate of the abdomen was done, which showed multiple air-fluid levels without bowel distention, no pneumoperitoneum. Patient has been seen in consultation by surgery. She remains nothing by mouth at this time. No nausea, no vomiting or diarrhea since today. Abdomen is soft and nontender, a bit distended, but patient states this is her baseline since her open right colectomy last June, and subsequent small bowel obstruction in July 2017 that resolved spontaneously. Surgeries plan on resuming liquid diet, and following up with abdominal x-rays. From pulmonary standpoint patient continues to improve, she is on a combination of Rocephin and Zithromax, nebulized treatments, and IV steroids at at 40 mg every 8 hours. On 01/02/2018 patient seen in follow-up, reports slight improvement with her wheezing and dyspnea, lung sounds remain diminished, with a few end expiratory wheezes. She continues with nausea, but no vomiting. denies abdominal chest x- ray shows improving partial small bowel obstruction. Patient has tolerated clear liquid diet. we'll continue with current plan of care, continue pneumatic coverage, IV steroids, nebulized treatments. On 2017 patient seen in follow-up. Continues to improve, no further episodes of vomiting, she is tolerating regular diet. Still has some residual diarrhea, but this is improving. From pulmonary standpoint she remains stable, lung sounds are diminished with a few scattered end expiratory wheezes. She has been ambulating in the cardoso, on room air, tolerating it well. Denies any increased chest congestion or sputum production. Signs remain stable, on 3 L per nasal cannula O2 sat is 97%. Continue current plan of care. On 01/04/2018 patient seen in follow-up. Reports breathing getting easier, denies any worsening dyspnea. Denies any nausea, there were no further episodes of emesis. She is tolerating a regular diet. She is complaining of ongoing diarrhea. Surgery is following, patient was started on Lomotil. Patient is wearing her oxygen intermittently, O2 sat on room air is 94%. She is afebrile, vital signs are stable. Today's blood work shows potassium 2.8, chloride is 94, CO2 is 32, BUN is 14, creatinine 0.54. Patient has been receiving oral Lasix, has been having ongoing diarrhea. She's developing metabolic alkalosis related to diuresis and ongoing diarrhea. Discontinue the Lasix, we will discontinue the Zithromax. From pulmonary standpoint patient remains stable, lung sounds are diminished, with only a few faint scattered wheezes. Patient's tolerating ambulation. Objective - Vital Signs Vital signs: Vital Signs Temp 97.8 F 01/04/18 15:00 Pulse 88 01/04/18 15:50 Resp 16 01/04/18 15:00 BP 150/78 01/04/18 15:00 Pulse Ox 94 L 01/04/18 15:00 Intake & Output 01/03/18 01/04/18 01/04/18 18:59 06:59 18:59 Intake Total 1100 Balance 1100 Weight 74.389 kg Intake: Oral 1100 Other: # Voids 2 2 4 # Bowel Movements 4 - Exam GENERAL EXAM: Alert, active, comfortable in no apparent distress. HEAD: Normocephalic/atraumatic. EYES: Normal reaction of pupils, equal size. Conjunctiva pink, sclera white. NOSE: Clear with pink turbinates. THROAT: No erythema or exudates. NECK: No masses, no JVD, no thyroid enlargement, no adenopathy. CHEST: No chest wall deformity. Symmetrical expansion. LUNGS: Diminished air entry bilaterally with a few end expiratory wheezes CVS: Regular rate and rhythm, normal S1 and S2, no gallops, no murmurs, no rubs ABDOMEN: Soft, nontender, slightly distended. No hepatosplenomegaly, normal bowel sounds, no guarding or rigidity. There are healed surgical scars on the abdomen EXTREMITIES: No clubbing, no edema, no cyanosis, 2+ pulses and upper and lower extremities. MUSCULOSKELETAL: Muscle strength and tone normal. SPINE: No scoliosis or deformity SKIN: No rashes CENTRAL NERVOUS SYSTEM: Alert and oriented -3. No focal deficits, tone is normal in all 4 extremities. PSYCHIATRIC: Alert and oriented -3. Appropriate affect. Intact judgment and insight. - Labs CBC & Chem 7: 01/04/18 07:54 01/04/18 15:00 Labs: Abnormal Lab Results - Last 24 Hours (Table) 01/03/18 01/04/18 01/04/18 Range/Units 21:08 07:09 07:54 WBC 11.1 H (3.8-10.6) k/uL Neutrophils # 10.0 H (1.3-7.7) k/uL Lymphocytes # 0.7 L (1.0-4.8) k/uL Potassium (3.5-5.1) mmol/L Chloride (98-107) mmol/L Carbon Dioxide (22-30) mmol/L Glucose (74-99) mg/dL POC Glucose (mg/dL) 130 H 125 H (75-99) mg/dL Calcium (8.4-10.2) mg/dL 01/04/18 01/04/18 01/04/18 Range/Units 07:54 12:14 15:00 WBC (3.8-10.6) k/uL Neutrophils # (1.3-7.7) k/uL Lymphocytes # (1.0-4.8) k/uL Potassium 2.8 L* 3.2 L (3.5-5.1) mmol/L Chloride 94 L (98-107) mmol/L Carbon Dioxide 42 H* (22-30) mmol/L Glucose 111 H (74-99) mg/dL POC Glucose (mg/dL) 184 H (75-99) mg/dL Calcium 8.3 L (8.4-10.2) mg/dL 01/04/18 Range/Units 17:20 WBC (3.8-10.6) k/uL Neutrophils # (1.3-7.7) k/uL Lymphocytes # (1.0-4.8) k/uL Potassium (3.5-5.1) mmol/L Chloride (98-107) mmol/L Carbon Dioxide (22-30) mmol/L Glucose (74-99) mg/dL POC Glucose (mg/dL) 122 H (75-99) mg/dL Calcium (8.4-10.2) mg/dL Assessment and Plan Plan: Assessment: #1 COPD exacerbation complicated by mild purulent tracheobronchitis. #2 Vomiting, diarrhea, rule out bowel obstruction versus ileus. Surgery is following #3 Extensive laparoscopic lysis of adhesions with open right colectomy with excision of suprapubic sebaceous cyst in June 2017, and subsequent readmission in July 2017 for small bowel obstruction that resolved spontaneously #4 Previous history of heavy tobacco use #5 History of hypertension #6 History of rheumatoid arthritis #7 History of cancer of the vulva #8 Previous history of gout. #9 History of colitis. #10 History of urinary tract infection #11 History of multiple environmental ALLERGIES #12 History of rectal bleeding Plan: No further episodes of emesis, the patient has diarrhea. She has developped metabolic alkalosis probably secondary to diurrhea and diuresis with oral Lasix. We will stop the Lasix for now. Replace serum potassium per protocol, patient is tolerating oral intake. We'll discontinue the Zithromax, continue with Rocephin for now. We will decrease the Solu-Medrol down to 40 mg every 12 hours. Increase activity as tolerated. Continue nebulized treatments. From pulmonary standpoint she remains stable, she could be considered for discharge in the next 24 hours provided she has been cleared for discharge by surgery. She will be discharged home on prednisone taper, and oral Ceftin. She'll continue her maintenance inhalers and nebulizers. I performed a history & physical examination of the patient and discussed their management with my nurse practitioner, Savanah Mart. I reviewed the nurse practitioner's note and agree with the documented findings and plan of care. Lung sounds are positive for diminished air entry bilaterally and minimal end expiratory wheezes. The findings and the impression was discussed with the patient. I attest to the documentation by the nurse practitioner. Time with Patient: Less than 30
[2018-01-04] MEDS: ALPRAZolam 0.25 MG TAB PO PRN (17:58)
[2018-01-04] MEDS ORDERED: POTASSIUM CHLORIDE ER 20 MEQ TAB.ER PO STA (20:04)
[2018-01-04] MEDS: TEMAZEPAM 15 MG CAP PO PRN (20:46)
[2018-01-04] MEDS: MONTELUKAST 10 MG TAB PO SCH (20:46)
[2018-01-04 21:44] LABS: Glucose,Whole Blood 117 mg/dL (75-99)
[2018-01-05] MEDS: ALPRAZolam 0.25 MG TAB PO PRN (00:47)
[2018-01-05] MEDS: HYDROcodone/APAP 10-325MG 1 EACH TAB PO PRN (03:53)
[2018-01-05] MEDS: SODIUM CHLORIDE 0.45% 1,000 ML IV SCH (06:56)
[2018-01-05 07:07] LABS: Glucose,Whole Blood 123 mg/dL (75-99)
[2018-01-05 07:23] VITALS: BP 142/73; RESP 20; TEMP 97.4
[2018-01-05] MEDS: BUDESONIDE 1 MG/2 ML NEBU INHALATION SCH (07:38)
[2018-01-05] MEDS: IPRATROPIUM-ALBUTEROL 3 ML NEB INHALATION SCH ×2 (07:38→11:17)
[2018-01-05] MEDS: FORMOTEROL FUMARATE 20 MCG/2 ML NEBU INHALATION SCH (07:38)
[2018-01-05 07:41] VITALS: PULSE 88
[2018-01-05] MEDS: INSULIN ASPART 100 UNIT/ML 1 ML 10 ML VIAL SQ SCH ×2 (07:43→12:37)
[2018-01-05] MEDS: CHOLESTYRAMINE (WITH SUGAR) 4 GM PACKET PO SCH (07:44)
[2018-01-05] MEDS: methylPREDNISolone SOD SUCCI 40 MG/ML 1 ML VIAL IV SCH (07:44)
[2018-01-05] MEDS: LISINOPRIL 20 MG TAB PO SCH (07:44)
[2018-01-05] MEDS: NYSTATIN 100,000 UNIT/ML SUSP 500,000 UNIT/5 ML CUP PO SCH ×2 (07:44→12:41)
[2018-01-05] MEDS: ENOXAPARIN 40 MG/0.4 ML SYRINGE SQ SCH (07:44)
[2018-01-05] MEDS: PANTOPRAZOLE 40 MG TABLET PO SCH (07:44)
[2018-01-05 08:58] LABS: Potassium 4.1 mmol/L (3.5-5.1)
[2018-01-05] MEDS: THIAMINE 100 MG TAB PO SCH (11:16)
[2018-01-05] MEDS: MULTIVITAMINS, THERA 1 EACH TAB PO SCH (11:16)
[2018-01-05 12:33] LABS: Glucose,Whole Blood 99 mg/dL (75-99)
[2018-01-05] MEDS: cefTRIAXone IN SWFI 1,000 MG/10 ML SYRINGE IVP SCH (12:41)
--- NOTE | 2018-01-05 12:49 | PN ---
PROGRESS NOTE DATE OF SERVICE: 01/04/2018 Patient is seen in the room with nursing staff. Patient relates her breathing is much improved compared to yesterday and she has been able to ambulate in the room Vital Signs: Temperature 97.8, pulse 88, respirations 16, blood pressure 160/80 , oxygen saturation 95%. HEENT: Atraumatic, normocephalic. Pupils equal and react to light. Extraocular movements intact. Buccal mucosa is fair. Neck is supple without any lymphadenopathy. JVD is negative. No carotid bruit heard. LUNGS: are decreased breath sounds bilateral wheezing, decreased breath sounds. Heart is regular rate and rhythm without any murmurs, gallop rhythm. ABDOMEN: Soft, nontender, nondistended. Bowel sounds positive. EXTREMITIES: No edema, clubbing or cyanosis. NEUROLOGICAL EXAMINATION: Cranial nerves 2-12 grossly intact. No gross motor or sensory deficits. LABS; CBC, white blood count of 11.1, hemoglobin 12.7, hematocrit 38.6, and platelet count of 297 ASSESSMENT; 1. Acute exacerbation COPD complicated with purulent tracheobronchitis 2. Vomiting/diarrhea; abdominal ileus ruled out 3. Tobacco abuse 4. Hypertension 5. History of rheumatoid arthritis 6. History of gout Patient has had no further episodes of emesis and diarrhea is improving. Patient's Lasix is stopped. Zithromax as discontinued but she remains on Rocephin. IV Solu-Medrol has been tapered down to 40 mg every 12 hours. Plan is to continue the nebulizer treatments pulmonary recommending possible discharge in next 24-48 hours once patient is cleared by surgery. MMODL / IJN: [id number] / BECKIE
== END 2018-01-05 13:20 | disposition home or self-care (01) | DRG 191 ==
LOC: EC 11:56 → 4MS4W 13:29
PROVIDERS: ADMIT Hospitalist; ATTEND Hospitalist
DX: J44.1 Chronic obstructive pulmonary disease with (acute) exacerbation (principal); E87.3 Alkalosis; K56.600 Partial intestinal obstruction, unspecified as to cause; B37.0 Candidal stomatitis; S22.39XA Fracture of one rib, unspecified side, initial encounter for closed fracture; E87.6 Hypokalemia; I10 Essential (primary) hypertension; J20.9 Acute bronchitis, unspecified; J44.0 Chronic obstructive pulmonary disease with (acute) lower respiratory infection; M06.9 Rheumatoid arthritis, unspecified; M85.80 Other specified disorders of bone density and structure, unspecified site; F32.9 Major depressive disorder, single episode, unspecified; J30.2 Other seasonal allergic rhinitis; M10.9 Gout, unspecified; M19.90 Unspecified osteoarthritis, unspecified site; M54.9 Dorsalgia, unspecified; F40.240 Claustrophobia; T50.2X5A Adverse effect of carbonic-anhydrase inhibitors, benzothiadiazides and other diuretics, initial encounter; Z96.651 Presence of right artificial knee joint; Z90.710 Acquired absence of both cervix and uterus; Z90.49 Acquired absence of other specified parts of digestive tract; Z87.891 Personal history of nicotine dependence; Z87.440 Personal history of urinary (tract) infections; Z87.01 Personal history of pneumonia (recurrent); Z85.44 Personal history of malignant neoplasm of other female genital organs; Z80.0 Family history of malignant neoplasm of digestive organs; Z79.899 Other long term (current) drug therapy; Z88.5 Allergy status to narcotic agent; Z88.8 Allergy status to other drugs, medicaments and biological substances; Y92.9 Unspecified place or not applicable
CPT/HCPCS: 36415; 71045; 74018; 74019; 80048; 80053; 82550; 82553; 83036; 83605; 83735; 83880; 84132; 84484; 85025; 85610; 85730; 87324; 87502; 93005; 94640; 94644; 94760; 96372; 96374; 96375; 99285

== ENCOUNTER 2018-04-02 03:38 | Inpatient (IN) | payer MEDICARE, OTHER ==
--- NOTE | 2018-04-02 04:00 | ED ---
SOB HPI - General Chief Complaint: Shortness of Breath Stated Complaint: DOMI Time Seen by Provider: 04/02/18 03:51 Source: patient Mode of arrival: wheelchair Limitations: no limitations - History of Present Illness Initial Comments: This patient is a 63-year-old woman who presents to be evaluated for dyspnea. She states that her symptoms started early in February after she took an auto ride with the lady who smokes, when she had to go to an arbitration meeting. She was having shortness of breath and a cough with some yellowish sputum. 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 She states she was given 2 different courses of antibiotics. She has been using inhaled medications. She does not seem to be improving much. MD Complaint: shortness of breath, cough, chest pain -: week(s) Consistency: constant Improves With: nothing Worsens With: nothing Known History Of: COPD Context: smoke/fume exposure Associated Symptoms: chest pain, cough, sputum production Treatments Prior to Arrival: bronchodilator, other (Antibiotics) - Related Data Home Medications Medication Instructions Recorded Confirmed Benazepril HCl 20 mg PO QAM 01/24/16 12/29/17 Furosemide [Lasix] 40 mg PO DAILY PRN 05/31/17 12/29/17 Montelukast [Singulair] 10 mg PO HS 05/31/17 12/29/17 Etanercept [Enbrel] 50 mg SQ DIRECTED 07/12/17 12/29/17 Dextroamphetamine/Amphetamine 20 mg PO DAILY PRN 08/15/17 12/29/17 [Dextroamp-Amphetamin 20 mg Tab] Albuterol Sulfate [Proair Hfa] 1 - 2 puff INHALATION RT-Q6H PRN 10/27/17 Ibuprofen [Motrin] 800 mg PO Q8H PRN 10/27/17 12/29/17 Multivit-Min/Iron/Folic/Lutein 1 tab PO DAILY 10/28/17 12/29/17 [Centrum Silver Women Tablet] HYDROcodone/APAP 10-325MG [Hoffman 1 tab PO TID PRN 12/29/17 12/29/17 10-325] Lactose-Reduced Food [Boost] 1 can PO DAILY PRN 12/29/17 12/29/17 Naproxen Sodium [Aleve] 220 - 440 mg PO DAILY PRN 12/29/17 12/29/17 Tiotropium 18 Mcg/Puff [Spiriva] 1 cap INHALATION RT-DAILY 12/29/17 12/29/17 guaiFENesin [Mucinex] 600 mg PO Q12HR PRN 12/29/17 12/29/17 Previous Rx's Medication Instructions Recorded Cefuroxime Axetil [Ceftin] 500 mg PO BID 2 Days #4 tab 01/04/18 predniSONE 10 mg PO DAILY 9 Days #18 tab 01/04/18 Thiamine [Vitamin B-1] 100 mg PO BID@1200,1700 tab 01/05/18 Allergies Allergy/AdvReac Type Severity Reaction Status Date / Time infliximab [From Remicade] Allergy Dyspnea/HIV Verified 04/02/18 03:45 ES procaine [From Novocain] Allergy Unknown Verified 04/02/18 03:45 propoxyphene HCl Allergy Unknown Verified 04/02/18 03:45 [From Darvon] Review of Systems ROS Statement: Those systems with pertinent positive or pertinent negative responses have been documented in the HPI. ROS Other: All systems not noted in ROS Statement are negative. Constitutional: Denies: fever, chills, weakness Respiratory: Reports: as per HPI, cough, dyspnea, wheezes. Denies: hemoptysis Cardiovascular: Reports: chest pain. Denies: palpitations, orthopnea, edema, syncope Gastrointestinal: Denies: abdominal pain, nausea, vomiting Genitourinary: Denies: dysuria, hematuria Musculoskeletal: Denies: back pain Skin: Denies: rash Neurological: Denies: headache, weakness, numbness Past Medical History Past Medical History: Cancer, COPD, Hypertension, Pneumonia, Rheumatoid Arthritis (RA) Additional Past Medical History / Comment(s): HX RECTAL BLEEDING, CA VULVA, UTI, COLITIS,POLYPS(BENIGN),GOUT,OSTEOPenia ,SINUS/SEASONAL ALLERGIES, CA of appendix History of Any Multi-Drug Resistant Organisms: None Reported Past Surgical History: Hysterectomy, Joint Replacement Additional Past Surgical History / Comment(s): RT KNEE REPLACEMENT, SX TO REMOVE CANCER VULVA,EGD,COLONOSCOPY, LASIK EYE SX Past Anesthesia/Blood Transfusion Reactions: No Reported Reaction Additional Past Anesthesia/Blood Transfusion Reaction / Comment(s): CLAUSTERPHOBIA Past Psychological History: Depression Smoking Status: Former smoker Past Alcohol Use History: Daily Past Drug Use History: None Reported - Past Family History Father Family Medical History: Cancer Additional Family Medical History / Comment(s): COLON Mother Family Medical History: Cancer Additional Family Medical History / Comment(s): ESOPHAGUS Sister(s) Family Medical History: Cancer Additional Family Medical History / Comment(s): CERVICAL General Exam Limitations: no limitations General appearance: alert, in distress Head exam: Present: atraumatic, normocephalic Eye exam: Present: normal appearance Neck exam: Present: normal inspection Respiratory exam: Present: respiratory distress, wheezes, accessory muscle use, decreased breath sounds, prolonged expiratory. Absent: rales, rhonchi, stridor Cardiovascular Exam: Present: regular rate, normal rhythm, normal heart sounds. Absent: systolic murmur, diastolic murmur, rubs, gallop GI/Abdominal exam: Present: soft. Absent: distended, tenderness, guarding, rebound, mass Extremities exam: Present: normal inspection, normal capillary refill. Absent: pedal edema, calf tenderness Back exam: Present: normal inspection. Absent: CVA tenderness (R), CVA tenderness (L) Neurological exam: Present: alert Skin exam: Present: warm, dry, intact, normal color. Absent: rash Course Vital Signs 04/02/18 04/02/18 04/02/18 03:41 04:23 04:32 Temperature 97.9 F Pulse Rate 103 H 94 92 Respiratory 26 H Rate Blood Pressure 179/82 O2 Sat by Pulse 96 Oximetry 04/02/18 05:21 Temperature Pulse Rate 88 Respiratory 20 Rate Blood Pressure 162/78 O2 Sat by Pulse 96 Oximetry Medical Decision Making - Lab Data Result diagrams: 04/02/18 04:00 04/02/18 04:00 Lab Results 04/02/18 04/02/18 04/02/18 Range/Units 04:00 04:00 04:00 WBC 17.8 H (3.8-10.6) k/uL RBC 4.00 (3.80-5.40) m/uL Hgb 12.8 (11.4-16.0) gm/dL Hct 38.9 (34.0-46.0) % MCV 97.1 (80.0-100.0) fL MCH 32.0 (25.0-35.0) pg MCHC 33.0 (31.0-37.0) g/dL RDW 15.8 H (11.5-15.5) % Plt Count 385 (150-450) k/uL Neutrophils % 71 % Lymphocytes % 21 % Monocytes % 6 % Eosinophils % 1 % Basophils % 0 % Neutrophils # 12.7 H (1.3-7.7) k/uL Lymphocytes # 3.8 (1.0-4.8) k/uL Monocytes # 1.0 (0-1.0) k/uL Eosinophils # 0.1 (0-0.7) k/uL Basophils # 0.1 (0-0.2) k/uL PT (9.0-12.0) sec INR (<1.2) APTT (22.0-30.0) sec D-Dimer (<0.60) mg/L FEU Sodium 141 (137-145) mmol/L Potassium 4.1 (3.5-5.1) mmol/L Chloride 97 L (98-107) mmol/L Carbon Dioxide 32 H (22-30) mmol/L Anion Gap 12 mmol/L BUN 34 H (7-17) mg/dL Creatinine 1.00 (0.52-1.04) mg/dL Est GFR (CKD-EPI)AfAm 69 (>60 ml/min/1.73 sqM) Est GFR (CKD-EPI)NonAf 60 (>60 ml/min/1.73 sqM) Glucose 99 (74-99) mg/dL Calcium 9.6 (8.4-10.2) mg/dL Total Bilirubin 0.3 (0.2-1.3) mg/dL AST 17 (14-36) U/L ALT 32 (9-52) U/L Alkaline Phosphatase 58 (38-126) U/L Total Creatine Kinase 23 L (30-135) U/L CK-MB (CK-2) 1.2 (0.0-2.4) ng/mL CK-MB (CK-2) Rel Index 5.2 Troponin I 0.016 (0.000-0.034) ng/mL NT-Pro-B Natriuret Pep pg/mL Total Protein 6.2 L (6.3-8.2) g/dL Albumin 3.8 (3.5-5.0) g/dL 06/05/18 06/05/18 Range/Units 04:00 04:00 WBC (3.8-10.6) k/uL RBC (3.80-5.40) m/uL Hgb (11.4-16.0) gm/dL Hct (34.0-46.0) % MCV (80.0-100.0) fL MCH (25.0-35.0) pg MCHC (31.0-37.0) g/dL RDW (11.5-15.5) % Plt Count (150-450) k/uL Neutrophils % % Lymphocytes % % Monocytes % % Eosinophils % % Basophils % % Neutrophils # (1.3-7.7) k/uL Lymphocytes # (1.0-4.8) k/uL Monocytes # (0-1.0) k/uL Eosinophils # (0-0.7) k/uL Basophils # (0-0.2) k/uL PT 9.4 (9.0-12.0) sec INR 0.9 (<1.2) APTT 19.9 L (22.0-30.0) sec D-Dimer 0.38 (<0.60) mg/L FEU Sodium (137-145) mmol/L Potassium (3.5-5.1) mmol/L Chloride (98-107) mmol/L Carbon Dioxide (22-30) mmol/L Anion Gap mmol/L BUN (7-17) mg/dL Creatinine (0.52-1.04) mg/dL Est GFR (CKD-EPI)AfAm (>60 ml/min/1.73 sqM) Est GFR (CKD-EPI)NonAf (>60 ml/min/1.73 sqM) Glucose (74-99) mg/dL Calcium (8.4-10.2) mg/dL Total Bilirubin (0.2-1.3) mg/dL AST (14-36) U/L ALT (9-52) U/L Alkaline Phosphatase (38-126) U/L Total Creatine Kinase (30-135) U/L CK-MB (CK-2) (0.0-2.4) ng/mL CK-MB (CK-2) Rel Index Troponin I (0.000-0.034) ng/mL NT-Pro-B Natriuret Pep 412 pg/mL Total Protein (6.3-8.2) g/dL Albumin (3.5-5.0) g/dL - EKG Data -: EKG Interpreted by Me EKG shows normal: sinus rhythm (With occasional PVCs), axis (Normal), intervals (Normal), QRS complexes (Normal) Rate: normal (Rate 98 bpm) Disposition Clinical Impression: COPD (chronic obstructive pulmonary disease) Disposition: ADMITTED IP TO THIS HOSP Condition: Fair Is patient prescribed a controlled substance at d/c from ED?: No Referrals: Meryl Mijares MD [Primary Care Provider] - 1-2 days
[2018-04-02] MEDS ORDERED: IPRATROPIUM-ALBUTEROL 3 ML NEB INHALATION STA (04:15)
[2018-04-02] MEDS ORDERED: predniSONE 20 MG TAB PO STA (04:15)
[2018-04-02 04:30] LABS: Basophils # (A) 0.1 k/uL (0-0.2); Basophils % (A) 0 %; Eosinophils # (A) 0.1 k/uL (0-0.7); Eosinophils % (A) 1 %; HCT 38.9 % (34.0-46.0); HGB 12.8 gm/dL (11.4-16.0); Lymphocytes # (A) 3.8 k/uL (1.0-4.8); Lymphocytes % (A) 21 %; MCV 97.1 fL (80.0-100.0); Monocytes % (A) 6 %; Neutrophils # (A) 12.7 k/uL (1.3-7.7); Neutrophils % (A) 71 %; Platelet Count 385 k/uL (150-450); RDW 15.8 % (11.5-15.5); WBC 17.8 k/uL (3.8-10.6)
[2018-04-02 04:38] LABS: Albumin 3.8 g/dL (3.5-5.0); Calcium 9.6 mg/dL (8.4-10.2); Potassium 4.1 mmol/L (3.5-5.1); Total Bilirubin 0.3 mg/dL (0.2-1.3); Total Protein 6.2 g/dL (6.3-8.2)
[2018-04-02 04:59] LABS: D-Dimer 0.38 mg/L FEU (<0.60); INR 0.9 (<1.2); Prothrombin Time 9.4 sec (9.0-12.0)
--- NOTE | 2018-04-02 05:00 | XR ---
EXAM: XR Chest, 1 View CLINICAL HISTORY: ITS.REASON XR Reason: dyspnea TECHNIQUE: Frontal view of the chest. COMPARISON: Chest x-ray dated 12/29/2017. FINDINGS: Lungs: Unremarkable. The lungs are clear. Pleural space: Unremarkable. No pneumothorax. Heart: Unremarkable. No cardiomegaly. Mediastinum: Unremarkable. Bones/joints: Unremarkable. IMPRESSION: Normal chest x-ray.
[2018-04-02 05:06] LABS: Creatine Kinase MB 1.2 ng/mL (0.0-2.4); Troponin I 0.016 ng/mL (0.000-0.034)
[2018-04-02 05:26] LABS: Partial Thromboplastin Time 19.9 sec (22.0-30.0)
[2018-04-02] MEDS ORDERED: guaiFENesin 600 MG TABLET.ER PO PRN (05:59)
[2018-04-02 06:44] VITALS: BMI 29.0
[2018-04-02] MEDS ORDERED: ALBUTEROL NEBULIZED 2.5 MG/3 ML INHALATION SCH (08:00)
[2018-04-02] MEDS ORDERED: NON-FORMULARY DRUG (Tiotropium 18 Mcg/Puff 1 CAP) INHALATION SCH (08:00)
[2018-04-02] MEDS: LISINOPRIL 20 MG TAB PO SCH (08:52)
[2018-04-02] MEDS ORDERED: predniSONE 20 MG TAB PO SCH (09:00)
[2018-04-02] MEDS: guaiFENesin 600 MG TABLET.ER PO SCH ×2 (09:48→20:29)
[2018-04-02] MEDS: IPRATROPIUM-ALBUTEROL 3 ML NEB INHALATION SCH ×3 (11:51→19:07)
[2018-04-02 12:07] LABS: Glucose,Whole Blood 113 mg/dL (75-99)
[2018-04-02 12:21] LABS: VBG PH 7.38 (7.31-7.41)
[2018-04-02] MEDS: INSULIN ASPART 100 UNIT/ML 1 ML 10 ML VIAL SQ SCH ×3 (12:51→20:35)
[2018-04-02] MEDS: methylPREDNISolone SOD SUCCI 125 MG/2 ML VIAL IV SCH ×3 (12:52→23:02)
[2018-04-02] MEDS: THIAMINE 100 MG TAB PO SCH ×2 (12:52→17:29)
[2018-04-02] MEDS: HYDROcodone/APAP 10-325MG 1 EACH TAB PO PRN ×2 (14:46→23:05)
--- NOTE | 2018-04-02 14:51 | P.CNPUL ---
History of Present Illness Consult date: 04/02/18 Requesting physician: Liliana Calixto Reason for consult: dyspnea, cough, COPD Chief complaint: wheezing, chest congestion and shortness of breath History of present illness: Estelle is a 63-year-old white female patient of Dr. Mijares who presented to the emergency department on 04/02/2018 at 03 38 with complaints of increasing dyspnea, chest congestion, wheezing, chest tightness. Patient has had ongoing symptoms since early in February, after she had traveled to [place] with a friend who had smoked in the car. Patient had also been out of for Perforomist and Pulmicort due to her loss of insurance. She was seen by Dr. Ohara in the pulmonary office on 03/15/2018 and again in 03/26/2018 in follow-up, she was treated with rounds of steroids, and antibiotics. During the last visit she was prescribed Levaquin 500 mg daily for 7 days, in addition to prednisone taper. However her symptoms became progressively worse despite the treatment, she was having subjective fever and chills at home, chest tightness, wheezing, chest congestion, productive cough and she presented to the emergency department for further evaluation and treatment. Chest x-ray completed in the emergency department on 04/02/2018 showed normal chest x-ray. EKG showed normal sinus rhythm with frequent PVCs. Blood work showed leukocytosis WBC of 17.8, sodium of 141, potassium is 4.1, chloride of 97, carbon dioxide of 32, BUN of 34, creatinine of 1.0, troponin and cardiac enzymes were negative 1, proBNP was within normal limits at 412. D-dimer was negative. Patient has a history of severe Gold stage IV chronic obstructive pulmonary disease with an underlying FEV1 value of 27% of predicted. Other history includes rheumatoid arthritis, pneumonia, hypertension, gout, colitis, cancer of the vulva with surgical resection, depression, patient is an ex-smoker. Patient underwent an open right colectomy on 07/13/2017 for a small bowel obstruction by Dr. Burger, she had subsequently developed a fascial dehiscence and required reclosure of her abdominal wall. We are seeing the patient today in consultation for an acute COPD exacerbation with failed outpatient treatment. Review of Systems All systems: negative Constitutional: Denies chills, Denies fever Eyes: denies blurred vision, denies pain Ears, nose, mouth and throat: Denies headache, Denies sore throat Cardiovascular: Denies chest pain, Denies shortness of breath Respiratory: Reports congestion, Reports dyspnea, Reports respiratory infections , Reports wheezing, Denies cough Gastrointestinal: Denies abdominal pain, Denies diarrhea, Denies nausea, Denies vomiting Genitourinary: Denies dysuria, Denies hematuria Musculoskeletal: Denies myalgias Integumentary: Denies pruritus, Denies rash Neurological: Denies numbness, Denies weakness Psychiatric: Denies anxiety, Denies depression Endocrine: Denies fatigue, Denies weight change Past Medical History Past Medical History: Cancer, COPD, Hypertension, Pneumonia, Rheumatoid Arthritis (RA) Additional Past Medical History / Comment(s): HX RECTAL BLEEDING, CA VULVA, UTI, COLITIS,POLYPS(BENIGN),GOUT,OSTEOPenia ,SINUS/SEASONAL ALLERGIES, CA of appendix History of Any Multi-Drug Resistant Organisms: None Reported Past Surgical History: Hysterectomy, Joint Replacement Additional Past Surgical History / Comment(s): RT KNEE REPLACEMENT, SX TO REMOVE CANCER VULVA,EGD,COLONOSCOPY, LASIK EYE SX Past Anesthesia/Blood Transfusion Reactions: No Reported Reaction Additional Past Anesthesia/Blood Transfusion Reaction / Comment(s): CLAUSTERPHOBIA Past Psychological History: Depression Additional Psychological History / Comment(s): PT STATED OCC MILD DEPRESSION NO THOUGHTS OF HARMING SELF Smoking Status: Former smoker Past Alcohol Use History: Daily Additional Past Alcohol Use History / Comment(s): STATES QUIT SMOKING IN 1999, SMOKED 2 PPD SINCE AGE 12, STATES DRINKS 2-3 DRINKS A NIGHT(VODKA MIXED WITH BA AID Past Drug Use History: None Reported Additional Drug Use History / Comment(s): PAST OCC MARIJUANA- QUIT - Past Family History Father Family Medical History: Cancer Additional Family Medical History / Comment(s): COLON Mother Family Medical History: Cancer Additional Family Medical History / Comment(s): ESOPHAGUS Sister(s) Family Medical History: Cancer Additional Family Medical History / Comment(s): CERVICAL Medications and Allergies Home Medications Medication Instructions Recorded Confirmed Type Benazepril HCl 20 mg PO QAM 01/24/16 04/02/18 History Furosemide [Lasix] 40 mg PO DAILY PRN 05/31/17 04/02/18 History Etanercept [Enbrel] 50 mg SQ Q14D 07/12/17 04/02/18 History Albuterol Sulfate [Proair Hfa] 1 - 2 puff INHALATION RT-Q6H PRN 10/27/17 History HYDROcodone/APAP 10-325MG [Matthews 1 tab PO TID PRN 12/29/17 04/02/18 History 10-325] Budesonide [Pulmicort] 0.5 mg INHALATION RT-BID 04/02/18 04/02/18 History Dextroamphetamine/Amphetamine 15 mg PO QAM 04/02/18 04/02/18 History [Adderall Xr] Formoterol Fumarate [Perforomist] 20 mcg INHALATION RT-BID 04/02/18 04/02/18 History Ipratropium-Albuterol Nebulize 3 ml INHALATION RT-Q4H PRN 04/02/18 04/02/18 History [Duoneb 0.5 mg-3 mg/3 ml Soln] Levofloxacin [Levaquin] 500 mg PO DAILY 04/02/18 04/02/18 History Nystatin 100,000 Unit/ml Susp 500,000 unit PO DAILY 04/02/18 04/02/18 History [Mycostatin Oral Susp] Polyethylene Glycol 3350 [Miralax] 17 gm PO DAILY 04/02/18 04/02/18 History diphenhydrAMINE [Benadryl] 50 mg PO HS 04/02/18 04/02/18 History predniSONE See Taper PO DAILY 04/02/18 04/02/18 History Allergies Allergy/AdvReac Type Severity Reaction Status Date / Time infliximab [From Remicade] Allergy Dyspnea/HIV Verified 04/02/18 08:01 ES procaine [From Novocain] Allergy Unknown Verified 04/02/18 08:01 propoxyphene HCl Allergy Unknown Verified 04/02/18 08:01 [From Darvon] Physical Exam Vitals: Vital Signs Temp Pulse Pulse Resp BP BP Pulse Ox 04/02/18 12:04 92 04/02/18 11:52 92 04/02/18 08:56 96 04/02/18 08:42 88 97 04/02/18 06:26 97.7 F 91 18 171/86 97 04/02/18 05:21 88 20 162/78 96 04/02/18 04:32 92 04/02/18 04:23 94 04/02/18 03:41 97.9 F 103 H 26 H 179/82 96 Intake and Output 04/01/18 04/02/18 04/02/18 22:59 06:59 14:59 Other: Weight 72 kg 72 kg GENERAL EXAM: Alert, pleasant, 63-year-old white female comfortable in no apparent distress. HEAD: Normocephalic/atraumatic. EYES: Normal reaction of pupils, equal size. Conjunctiva pink, sclera white. NOSE: Clear with pink turbinates. THROAT: No erythema or exudates. NECK: No masses, no JVD, no thyroid enlargement, no adenopathy. CHEST: No chest wall deformity. Symmetrical expansion. LUNGS: Diminished lung sounds bilaterally, with diffuse wheezes. CVS: Regular rate and rhythm, normal S1 and S2, no gallops, no murmurs, no rubs ABDOMEN: Soft, nontender. No hepatosplenomegaly, normal bowel sounds, no guarding or rigidity. EXTREMITIES: No clubbing, no edema, no cyanosis, 2+ pulses and upper and lower extremities. MUSCULOSKELETAL: Muscle strength and tone normal. SPINE: No scoliosis or deformity SKIN: No rashes CENTRAL NERVOUS SYSTEM: Alert and oriented -3. No focal deficits, tone is normal in all 4 extremities. PSYCHIATRIC: Alert and oriented -3. Appropriate affect. Intact judgment and insight. Results - Laboratory Findings CBC and BMP: 04/02/18 04:00 04/02/18 04:00 PT/INR, D-dimer PT 9.4 sec (9.0-12.0) 04/02/18 04:00 INR 0.9 (<1.2) 04/02/18 04:00 D-Dimer 0.38 mg/L FEU (<0.60) 04/02/18 04:00 Abnormal lab findings: Abnormal Labs 04/02/18 04/02/18 04/02/18 04:00 04:00 04:00 WBC 17.8 H RDW 15.8 H Neutrophils # 12.7 H APTT VBG pCO2 VBG HCO3 Chloride 97 L Carbon Dioxide 32 H BUN 34 H POC Glucose (mg/dL) Total Creatine Kinase 23 L Total Protein 6.2 L 04/02/18 04/02/18 04/02/18 04:00 12:00 12:03 WBC RDW Neutrophils # APTT 19.9 L VBG pCO2 61 H VBG HCO3 35 H Chloride Carbon Dioxide BUN POC Glucose (mg/dL) 113 H Total Creatine Kinase Total Protein - Diagnostic Findings Chest x-ray: report reviewed, image reviewed Additional studies: EKG reviewed Assessment and Plan Plan: Assessment: #1. Acute exacerbation of chronic obstructive pulmonary disease with purulent tracheobronchitis, with failed outpatient treatment #2. Advanced severe COPD, GOLD stage IV, baseline FEV1 of 27% of predicted, chronic hypercapnic respiratory failure #3. Leukocytosis, possibly related to repeated rounds of steroids #4. History of nicotine dependence, currently in remission #5. Rheumatoid arthritis #6. Hypertension #7. Seasonal ALLERGIES #8. Depression #9. History of right colectomy in June 2017 for small bowel obstruction with subsequent wound dehiscence and reclosure #10. History of vulvar cancer with resection, hysterectomy Plan: We'll start the patient on IV Solu-Medrol 60 mg every 6 hours, continue nebulized bronchodilators, continue Mucinex, we'll restart patient's Pulmicort and Perforomist. We'll continue to follow I performed a history & physical examination of the patient and discussed their management with my nurse practitioner, Savanah Mart. I reviewed the nurse practitioner's note and agree with the documented findings and plan of care. Lung sounds are tight and wheezy. The findings and the impression was discussed with the patient. I attest to the documentation by the nurse practitioner. Time with Patient: Greater than 30
[2018-04-02 16:51] LABS: Glucose,Whole Blood 139 mg/dL (75-99)
[2018-04-02] MEDS: FUROSEMIDE 40 MG TAB PO PRN (17:28)
[2018-04-02] MEDS: BUDESONIDE 1 MG/2 ML NEBU INHALATION SCH (19:07)
[2018-04-02] MEDS: FORMOTEROL FUMARATE 20 MCG/2 ML NEBU INHALATION SCH (19:07)
[2018-04-02 19:09] LABS: Alternaria alternata IgE <0.10 kU/L; Birch IgE <0.10 kU/L; Cat Epith & Dander IgE <0.10 kU/L; Cockroach IgE <0.10 kU/L; Dermato. farinae IgE <0.10 kU/L; Dog Dander IgE <0.10 kU/L; Elm IgE <0.10 kU/L; Maple (Box Elder) IgE <0.10 kU/L; Oak IgE <0.10 kU/L; Ragweed,Common IgE <0.10 kU/L; Red Top (Bentgrass) IgE <0.10 kU/L
[2018-04-02] MEDS: MONTELUKAST 10 MG TAB PO SCH (20:29)
[2018-04-02] MEDS: diphenhydrAMINE 50 MG CAP PO SCH (20:29)
[2018-04-02] MEDS: IBUPROFEN 800 MG TAB PO PRN (20:32)
[2018-04-02 20:39] LABS: Glucose,Whole Blood 142 mg/dL (75-99)
--- NOTE | 2018-04-02 23:02 | P.HPIM ---
History of Present Illness H&P Date: 04/02/18 Chief Complaint: Shortness of breath Patient is a 63-year-old female with known history of advanced COPD with FEV1 of 27% of predicted on home oxygen, her brother arthritis, history of open right colectomy on 07/13/2017 due to small bowel obstruction and subsequently developed facial lesions and required reclosure of her abdominal wall and other multiple medical problems came to ER with complaints of worsening shortness of breath congestion and wheezing. Patient has been having symptoms for the past 1 month and was treated with oral steroids and antibiotics and was sent home with antibiotics in the form of Levaquin recently. Symptoms have been progressively getting worse along with subjective fevers and chills. Patient came to ER for further evaluation Chest x-ray is negative for an acute process EKG showed normal sinus rhythm with frequent PVCs BNP 412 D-dimer negative Review of Systems Constitutional: Patient denies any fever or chills . No generalized weakness or weight loss. Abdomen: Patient denied nausea vomiting and diarrhea and abdominal pain. Cardiovascular: Patient denies any chest pain or short of breath no palpitations. Respiratory: Cough with is from production. Shortness of breath and chest tightness and congestion and wheezing Neurologic: Patient denied any numbness or tingling headache. Musculoskeletal: Patient denies any complaints of joint swelling or deformity. Skin: Negative Psychiatric: Negative Endocrine: No heat or cold intolerance. No recent weight gain. Genitourinary: No dysuria or hematuria. All other 14 point ROS negative except the above Past Medical History Past Medical History: Cancer, COPD, Hypertension, Pneumonia, Rheumatoid Arthritis (RA) Additional Past Medical History / Comment(s): HX RECTAL BLEEDING, CA VULVA, UTI, COLITIS,POLYPS(BENIGN),GOUT,OSTEOPenia ,SINUS/SEASONAL ALLERGIES, CA of appendix History of Any Multi-Drug Resistant Organisms: None Reported Past Surgical History: Hysterectomy, Joint Replacement Additional Past Surgical History / Comment(s): RT KNEE REPLACEMENT, SX TO REMOVE CANCER VULVA,EGD,COLONOSCOPY, LASIK EYE SX Past Anesthesia/Blood Transfusion Reactions: No Reported Reaction Additional Past Anesthesia/Blood Transfusion Reaction / Comment(s): CLAUSTERPHOBIA Past Psychological History: Depression Additional Psychological History / Comment(s): PT STATED OCC MILD DEPRESSION NO THOUGHTS OF HARMING SELF Smoking Status: Former smoker Past Alcohol Use History: Daily Additional Past Alcohol Use History / Comment(s): STATES QUIT SMOKING IN 1999, SMOKED 2 PPD SINCE AGE 12, STATES DRINKS 2-3 DRINKS A NIGHT(VODKA MIXED WITH BA AID Past Drug Use History: None Reported Additional Drug Use History / Comment(s): PAST OCC MARIJUANA- QUIT - Past Family History Father Family Medical History: Cancer Additional Family Medical History / Comment(s): COLON Mother Family Medical History: Cancer Additional Family Medical History / Comment(s): ESOPHAGUS Sister(s) Family Medical History: Cancer Additional Family Medical History / Comment(s): CERVICAL Medications and Allergies Home Medications Medication Instructions Recorded Confirmed Type Benazepril HCl 20 mg PO QAM 01/24/16 04/02/18 History Furosemide [Lasix] 40 mg PO DAILY PRN 05/31/17 04/02/18 History Etanercept [Enbrel] 50 mg SQ Q14D 07/12/17 04/02/18 History Albuterol Sulfate [Proair Hfa] 1 - 2 puff INHALATION RT-Q6H PRN 10/27/17 History HYDROcodone/APAP 10-325MG [[place] 1 tab PO TID PRN 12/29/17 04/02/18 History 10-325] Budesonide [Pulmicort] 0.5 mg INHALATION RT-BID 04/02/18 04/02/18 History Dextroamphetamine/Amphetamine 15 mg PO QAM 04/02/18 04/02/18 History [Adderall Xr] Formoterol Fumarate [Perforomist] 20 mcg INHALATION RT-BID 04/02/18 04/02/18 History Ipratropium-Albuterol Nebulize 3 ml INHALATION RT-Q4H PRN 04/02/18 04/02/18 History [Duoneb 0.5 mg-3 mg/3 ml Soln] Levofloxacin [Levaquin] 500 mg PO DAILY 04/02/18 04/02/18 History Nystatin 100,000 Unit/ml Susp 500,000 unit PO DAILY 04/02/18 04/02/18 History [Mycostatin Oral Susp] Polyethylene Glycol 3350 [Miralax] 17 gm PO DAILY 04/02/18 04/02/18 History diphenhydrAMINE [Benadryl] 50 mg PO HS 04/02/18 04/02/18 History predniSONE See Taper PO DAILY 04/02/18 04/02/18 History Allergies Allergy/AdvReac Type Severity Reaction Status Date / Time infliximab [From Remicade] Allergy Dyspnea/HIV Verified 04/02/18 08:01 ES procaine [From Novocain] Allergy Unknown Verified 04/02/18 08:01 propoxyphene HCl Allergy Unknown Verified 04/02/18 08:01 [From Darvon] Physical Exam Vitals: Vital Signs Temp Pulse Pulse Resp BP BP Pulse Ox 04/02/18 08:56 96 04/02/18 08:42 88 97 04/02/18 06:26 97.7 F 91 18 171/86 97 04/02/18 05:21 88 20 162/78 96 04/02/18 04:32 92 04/02/18 04:23 94 04/02/18 03:41 97.9 F 103 H 26 H 179/82 96 Intake and Output 04/01/18 04/02/18 04/02/18 22:59 06:59 14:59 Other: Weight 72 kg PHYSICAL EXAMINATION: Patient is lying in the bed comfortably, no acute distress, awake alert and oriented.. HEENT: Normocephalic. Neck is supple. Pupils reactive. Nostrils clear. Oral cavity is moist. Ears reveal no drainage. Neck reveals no JVD, carotid bruits, or thyromegaly. CHEST EXAMINATION: Trachea is central. Symmetrical expansion. Bilateral diminished air entry. No crackles. minimal wheezing. CARDIAC: Normal S1, S2 with no gallops. No murmurs ABDOMEN: Soft. Bowel sounds normal. No organomegaly. No abdominal bruits. Extremities: reveal no edema. No clubbing or cyanosis Neurologically awake, alert, oriented x3 with well-coordinated movements. No focal deficits noted Skin: No rash or skin lesions. Psychiatric: Cooperative. Nonsuicidal Musculoskeletal: No joint swelling or deformity. Normal range of motion. Results CBC & Chem 7: 04/02/18 04:00 04/02/18 04:00 Labs: Abnormal Lab Results - Last 24 Hours (Table) 04/02/18 04/02/18 04/02/18 Range/Units 04:00 04:00 04:00 WBC 17.8 H (3.8-10.6) k/uL RDW 15.8 H (11.5-15.5) % Neutrophils # 12.7 H (1.3-7.7) k/uL APTT (22.0-30.0) sec Chloride 97 L (98-107) mmol/L Carbon Dioxide 32 H (22-30) mmol/L BUN 34 H (7-17) mg/dL Total Creatine Kinase 23 L (30-135) U/L Total Protein 6.2 L (6.3-8.2) g/dL // Range/Units 04:00 WBC (3.8-10.6) k/uL RDW (11.5-15.5) % Neutrophils # (1.3-7.7) k/uL APTT 19.9 L (22.0-30.0) sec Chloride (98-107) mmol/L Carbon Dioxide (22-30) mmol/L BUN (7-17) mg/dL Total Creatine Kinase (30-135) U/L Total Protein (6.3-8.2) g/dL Thrombosis Risk Factor Assmnt - DVT/VTE Prophylaxis DVT/VTE Prophylaxis: Pharmacologic Prophylaxis ordered - Choose All That Apply Each Factor Represents 1 point: Abnormal pulmonary function (COPD) Each Risk Factor Represents 2 Points: Age 61-74 years Thrombosis Risk Factor Assessment Total Risk Factor Score: 3 Thrombosis Risk Factor Assessment Level: Moderate Risk Assessment and Plan Assessment: Acute COPD exacerbation and failed outpatient treatment Advanced COPD with FEV1 of 27% of predicted Leukocytosis due to recent steroid use Chronic hypercapnic and hypoxic respiratory failure. On home oxygen at 3 L Rheumatoid arthritis Hypertension Depression Seasonal ALLERGIES History of nicotine addiction. History of bowel obstruction status post right colectomy in June 2017 with subsequent wound dehiscence and reclosure History of vulvar cancer with resection and hysterectomy DVT prophylaxis Plan: Patient will be continued on IV steroids and DuoNeb's. Pulmicort and Perforomist was added. Continue with the Mucinex and home medications and follow closely. Further recommendations based on the clinical course. Pulmonary is on board. Prognosis is guarded with advanced COPD and multiple other medical problems and comorbid conditions. Time with Patient: Greater than 30
[2018-04-03] MEDS: IBUPROFEN 800 MG TAB PO PRN ×3 (03:28→21:36)
[2018-04-03] MEDS: methylPREDNISolone SOD SUCCI 125 MG/2 ML VIAL IV SCH ×4 (05:57→22:57)
[2018-04-03 07:23] LABS: Glucose,Whole Blood 119 mg/dL (75-99)
[2018-04-03] MEDS: IPRATROPIUM-ALBUTEROL 3 ML NEB INHALATION SCH ×4 (07:28→19:32)
[2018-04-03] MEDS: FORMOTEROL FUMARATE 20 MCG/2 ML NEBU INHALATION SCH ×2 (07:28→19:32)
[2018-04-03] MEDS: BUDESONIDE 1 MG/2 ML NEBU INHALATION SCH ×2 (07:28→19:32)
[2018-04-03] MEDS: INSULIN ASPART 100 UNIT/ML 1 ML 10 ML VIAL SQ SCH ×4 (07:29→21:33)
[2018-04-03] MEDS: guaiFENesin 600 MG TABLET.ER PO SCH ×2 (08:44→21:35)
[2018-04-03] MEDS: LISINOPRIL 20 MG TAB PO SCH (08:44)
[2018-04-03] MEDS: HYDROcodone/APAP 10-325MG 1 EACH TAB PO PRN ×2 (08:45→16:21)
[2018-04-03 10:00] LABS: Basophils % (A) 0 %; Eosinophils % (A) 0 %; HCT 35.4 % (34.0-46.0); HGB 11.5 gm/dL (11.4-16.0); Lymphocytes # (A) 0.6 k/uL (1.0-4.8); Lymphocytes % (A) 4 %; MCH 31.7 pg (25.0-35.0); MCHC 32.5 g/dL (31.0-37.0); MCV 97.3 fL (80.0-100.0); Mean Platelet Volume 7.2; Monocytes # (A) 0.3 k/uL (0-1.0); Monocytes % (A) 2 %; Neutrophils % (A) 94 %; Platelet Count 315 k/uL (150-450); RBC 3.63 m/uL (3.80-5.40); RDW 15.8 % (11.5-15.5)
[2018-04-03] MEDS: NYSTATIN 100,000 UNIT/ML SUSP 500,000 UNIT/5 ML CUP PO SCH ×4 (10:52→21:36)
[2018-04-03 11:36] LABS: Glucose,Whole Blood 136 mg/dL (75-99)
[2018-04-03] MEDS: THIAMINE 100 MG TAB PO SCH ×2 (12:18→16:20)
--- NOTE | 2018-04-03 14:05 | P.PN ---
Subjective Progress Note Date: 04/03/18 Principal diagnosis: Acute exacerbation of chronic obstructive pulmonary disease with purulent tracheobronchitis with failed outpatient treatment Estelle is a 63-year-old white female patient of Dr. Mijares who presented to the emergency department on 04/02/2018 at 03 38 with complaints of increasing dyspnea, chest congestion, wheezing, chest tightness. Patient has had ongoing symptoms since early in February, after she had traveled to [place] with a friend who had smoked in the car. Patient had also been out of for Perforomist and Pulmicort due to her loss of insurance. She was seen by Dr. Ohara in the pulmonary office on 03/15/2018 and again in 03/26/2018 in follow-up, she was treated with rounds of steroids, and antibiotics. During the last visit she was prescribed Levaquin 500 mg daily for 7 days, in addition to prednisone taper. However her symptoms became progressively worse despite the treatment, she was having subjective fever and chills at home, chest tightness, wheezing, chest congestion, productive cough and she presented to the emergency department for further evaluation and treatment. Chest x-ray completed in the emergency department on 04/02/2018 showed normal chest x-ray. EKG showed normal sinus rhythm with frequent PVCs. Blood work showed leukocytosis WBC of 17.8, sodium of 141, potassium is 4.1, chloride of 97, carbon dioxide of 32, BUN of 34, creatinine of 1.0, troponin and cardiac enzymes were negative 1, proBNP was within normal limits at 412. D-dimer was negative. Patient has a history of severe Gold stage IV chronic obstructive pulmonary disease with an underlying FEV1 value of 27% of predicted. Other history includes rheumatoid arthritis, pneumonia, hypertension, gout, colitis, cancer of the vulva with surgical resection, depression, patient is an ex-smoker. Patient underwent an open right colectomy on 07/13/2017 for a small bowel obstruction by Dr. Burger, she had subsequently developed a fascial dehiscence and required reclosure of her abdominal wall. We are seeing the patient today in consultation for an acute COPD exacerbation with failed outpatient treatment. On 04/03/2018 patient seen in follow-up on medical surgical floor. She reports slight improvement with breathing, sounds still remain very diminished, tight and wheezy slightly better air movement noted bilaterally. Afebrile, signs are stable, as a stable, she is on room air with O2 sat at 94%, continue current medical treatment, continue same dose steroids, empiric antibiotics, belies treatments, his labs have been reviewed, no new chest x-rays. Not back to her baseline yet, but improving Objective - Vital Signs Vital signs: Vital Signs Temp 97.1 F L 04/03/18 06:35 Pulse 92 04/03/18 11:14 Resp 18 04/03/18 06:35 BP 149/82 04/03/18 06:35 Pulse Ox 94 L 04/03/18 06:35 Intake & Output 04/02/18 04/03/18 04/03/18 18:59 06:59 18:59 Intake Total 1300 Balance 1300 Weight 72 kg 72 kg Intake: Oral 1300 Other: Voiding Method Toilet Toilet # Voids 2 2 - Exam GENERAL EXAM: Alert, pleasant, 63-year-old white female comfortable in no apparent distress. HEAD: Normocephalic/atraumatic. EYES: Normal reaction of pupils, equal size. Conjunctiva pink, sclera white. NOSE: Clear with pink turbinates. THROAT: No erythema or exudates. NECK: No masses, no JVD, no thyroid enlargement, no adenopathy. CHEST: No chest wall deformity. Symmetrical expansion. LUNGS: Diminished lung sounds bilaterally, with diffuse wheezes. CVS: Regular rate and rhythm, normal S1 and S2, no gallops, no murmurs, no rubs ABDOMEN: Soft, nontender. No hepatosplenomegaly, normal bowel sounds, no guarding or rigidity. EXTREMITIES: No clubbing, no edema, no cyanosis, 2+ pulses and upper and lower extremities. MUSCULOSKELETAL: Muscle strength and tone normal. SPINE: No scoliosis or deformity SKIN: No rashes CENTRAL NERVOUS SYSTEM: Alert and oriented -3. No focal deficits, tone is normal in all 4 extremities. PSYCHIATRIC: Alert and oriented -3. Appropriate affect. Intact judgment and insight. - Labs CBC & Chem 7: 04/03/18 09:41 04/03/18 09:41 Labs: Abnormal Lab Results - Last 24 Hours (Table) 04/02/18 04/02/18 04/02/18 Range/Units 12:00 12:03 16:49 WBC (3.8-10.6) k/uL RBC (3.80-5.40) m/uL RDW (11.5-15.5) % Neutrophils # (1.3-7.7) k/uL Lymphocytes # (1.0-4.8) k/uL VBG pCO2 61 H (37-51) mmHg VBG HCO3 35 H (24-28) mmol/L BUN (7-17) mg/dL Glucose (74-99) mg/dL POC Glucose (mg/dL) 113 H 139 H (75-99) mg/dL 04/02/18 04/03/18 04/03/18 Range/Units 20:33 07:11 09:41 WBC 17.0 H (3.8-10.6) k/uL RBC 3.63 L (3.80-5.40) m/uL RDW 15.8 H (11.5-15.5) % Neutrophils # 16.0 H (1.3-7.7) k/uL Lymphocytes # 0.6 L (1.0-4.8) k/uL VBG pCO2 (37-51) mmHg VBG HCO3 (24-28) mmol/L BUN (7-17) mg/dL Glucose (74-99) mg/dL POC Glucose (mg/dL) 142 H 119 H (75-99) mg/dL 04/03/18 Range/Units 09:41 WBC (3.8-10.6) k/uL RBC (3.80-5.40) m/uL RDW (11.5-15.5) % Neutrophils # (1.3-7.7) k/uL Lymphocytes # (1.0-4.8) k/uL VBG pCO2 (37-51) mmHg VBG HCO3 (24-28) mmol/L BUN 49 H (7-17) mg/dL Glucose 139 H (74-99) mg/dL POC Glucose (mg/dL) (75-99) mg/dL Assessment and Plan Plan: Assessment: #1. Acute exacerbation of chronic obstructive pulmonary disease with purulent tracheobronchitis, with failed outpatient treatment #2. Advanced severe COPD, GOLD stage IV, baseline FEV1 of 27% of predicted, chronic hypercapnic respiratory failure #3. Leukocytosis, possibly related to repeated rounds of steroids #4. History of nicotine dependence, currently in remission #5. Rheumatoid arthritis #6. Hypertension #7. Seasonal ALLERGIES #8. Depression #9. History of right colectomy in June 2017 for small bowel obstruction with subsequent wound dehiscence and reclosure #10. History of vulvar cancer with resection, hysterectomy Plan: Some improvement noted, but patient is not back to her baseline EF, lung sounds and wheezy, will continue with current medical treatment, continue with same dose of IV steroids, bronchodilators. We will continue to follow I performed a history & physical examination of the patient and discussed their management with my nurse practitioner, Savanah Mart. I reviewed the nurse practitioner's note and agree with the documented findings and plan of care. Lung sounds are tight and wheezy. The findings and the impression was discussed with the patient. I attest to the documentation by the nurse practitioner. Time with Patient: Less than 30
[2018-04-03 17:55] LABS: Glucose,Whole Blood 148 mg/dL (75-99)
[2018-04-03] MEDS: FUROSEMIDE 40 MG TAB PO PRN (18:14)
[2018-04-03 20:51] LABS: Glucose,Whole Blood 128 mg/dL (75-99)
[2018-04-03] MEDS: MONTELUKAST 10 MG TAB PO SCH (21:35)
[2018-04-03] MEDS: diphenhydrAMINE 50 MG CAP PO SCH (21:35)
--- NOTE | 2018-04-03 23:43 | P.PN ---
Subjective Progress Note Date: 04/03/18 Principal diagnosis: Acute COPD exacerbation Patient is a 63-year-old female with known history of advanced COPD with FEV1 of 27% of predicted on home oxygen, her brother arthritis, history of open right colectomy on 07/13/2017 due to small bowel obstruction and subsequently developed facial lesions and required reclosure of her abdominal wall and other multiple medical problems came to ER with complaints of worsening shortness of breath congestion and wheezing. Patient has been having symptoms for the past 1 month and was treated with oral steroids and antibiotics and was sent home with antibiotics in the form of Levaquin recently. Symptoms have been progressively getting worse along with subjective fevers and chills. Patient came to ER for further evaluation Chest x-ray is negative for an acute process EKG showed normal sinus rhythm with frequent PVCs BNP 412 D-dimer negative 04/03/2018 Patient is still having shortness of breath but did improve clinically slightly. Still having diminished breath sounds bilaterally and slow to improve. Not to baseline yet. Otherwise patient is being continued on IV steroids. Patient did mention antibiotics. Pulmonary is following. Continue with the oxygen with another cannula. No chest pain. No nausea vomiting or abdominal pain. No headache or dizziness lightheadedness. No abdominal pain. All other review of systems negative except the above Current medications reviewed Objective - Vital Signs Vital signs: Vital Signs Temp 97.2 F L 04/03/18 15:42 Pulse 100 04/03/18 20:01 Resp 20 04/03/18 15:42 BP 125/64 04/03/18 15:42 Pulse Ox 97 04/03/18 15:56 Intake & Output 04/03/18 04/03/18 04/04/18 06:59 18:59 06:59 Intake Total 1300 Balance 1300 Weight 72 kg 72 kg Intake: Oral 1300 Other: Voiding Method Toilet Toilet # Voids 2 3 1 - Exam PHYSICAL EXAMINATION: Patient is lying in the bed comfortably, no acute distress, awake alert and oriented.. HEENT: Normocephalic. Neck is supple. Pupils reactive. Nostrils clear. Oral cavity is moist. Ears reveal no drainage. Neck reveals no JVD, carotid bruits, or thyromegaly. CHEST EXAMINATION: Trachea is central. Symmetrical expansion. Bilateral diminished air entry CARDIAC: Normal S1, S2 with no gallops. No murmurs ABDOMEN: Soft. Bowel sounds normal. No organomegaly. No abdominal bruits. Extremities: reveal no edema. No clubbing or cyanosis Neurologically awake, alert, oriented x3 with well-coordinated movements. No focal deficits noted Skin: No rash or skin lesions. Psychiatric: Coperative. Nonsuicidal Musculoskeletal: No joint swelling or deformity. Normal range of motion. - Labs CBC & Chem 7: 04/03/18 09:41 04/03/18 09:41 Labs: Abnormal Lab Results - Last 24 Hours (Table) 04/03/18 04/03/18 04/03/18 Range/Units 07:11 09:41 09:41 WBC 17.0 H (3.8-10.6) k/uL RBC 3.63 L (3.80-5.40) m/uL RDW 15.8 H (11.5-15.5) % Neutrophils # 16.0 H (1.3-7.7) k/uL Lymphocytes # 0.6 L (1.0-4.8) k/uL BUN 49 H (7-17) mg/dL Glucose 139 H (74-99) mg/dL POC Glucose (mg/dL) 119 H (75-99) mg/dL 04/03/18 04/03/18 04/03/18 Range/Units 11:32 17:51 20:49 WBC (3.8-10.6) k/uL RBC (3.80-5.40) m/uL RDW (11.5-15.5) % Neutrophils # (1.3-7.7) k/uL Lymphocytes # (1.0-4.8) k/uL BUN (7-17) mg/dL Glucose (74-99) mg/dL POC Glucose (mg/dL) 136 H 148 H 128 H (75-99) mg/dL Assessment and Plan Assessment: Acute COPD exacerbation and failed outpatient treatment Advanced COPD with FEV1 of 27% of predicted Leukocytosis due to recent steroid use Chronic hypercapnic and hypoxic respiratory failure. On home oxygen at 3 L Rheumatoid arthritis Hypertension Depression Seasonal ALLERGIES History of nicotine addiction. History of bowel obstruction status post right colectomy in June 2017 with subsequent wound dehiscence and reclosure History of vulvar cancer with resection and hysterectomy DVT prophylaxis Plan: Patient will be continued on IV steroids and DuoNeb's. Pulmicort and Perforomist was added. Continue with the Mucinex and home medications and follow closely. Further recommendations based on the clinical course. Pulmonary is on board. Prognosis is guarded with advanced COPD and multiple other medical problems and comorbid conditions. Time with Patient: Greater than 30
[2018-04-04] MEDS: HYDROcodone/APAP 10-325MG 1 EACH TAB PO PRN ×3 (01:21→18:18)
[2018-04-04] MEDS: ACETAMINOPHEN TAB 325 MG TAB PO PRN (04:08)
[2018-04-04] MEDS: methylPREDNISolone SOD SUCCI 125 MG/2 ML VIAL IV SCH ×4 (05:45→23:30)
[2018-04-04] MEDS: IBUPROFEN 800 MG TAB PO PRN ×2 (05:46→15:34)
[2018-04-04 07:13] LABS: Glucose,Whole Blood 136 mg/dL (75-99)
[2018-04-04] MEDS: FORMOTEROL FUMARATE 20 MCG/2 ML NEBU INHALATION SCH ×2 (08:35→20:25)
[2018-04-04] MEDS: IPRATROPIUM-ALBUTEROL 3 ML NEB INHALATION SCH ×4 (08:35→20:25)
[2018-04-04] MEDS: BUDESONIDE 1 MG/2 ML NEBU INHALATION SCH ×2 (08:35→20:25)
[2018-04-04] MEDS: INSULIN ASPART 100 UNIT/ML 1 ML 10 ML VIAL SQ SCH ×4 (08:41→20:53)
[2018-04-04] MEDS: LISINOPRIL 20 MG TAB PO SCH (09:04)
[2018-04-04] MEDS: guaiFENesin 600 MG TABLET.ER PO SCH ×2 (09:04→21:14)
[2018-04-04] MEDS: NYSTATIN 100,000 UNIT/ML SUSP 500,000 UNIT/5 ML CUP PO SCH ×4 (09:04→21:14)
[2018-04-04 12:26] LABS: Glucose,Whole Blood 142 mg/dL (75-99)
[2018-04-04] MEDS: THIAMINE 100 MG TAB PO SCH ×2 (12:41→18:18)
--- NOTE | 2018-04-04 13:58 | P.PN ---
Subjective Progress Note Date: 04/04/18 Principal diagnosis: Acute exacerbation of chronic obstructive pulmonary disease with purulent tracheobronchitis with failed outpatient treatment Estelle is a 63-year-old white female patient of Dr. Mijares who presented to the emergency department on 04/02/2018 at 03 38 with complaints of increasing dyspnea, chest congestion, wheezing, chest tightness. Patient has had ongoing symptoms since early in February, after she had traveled to [place] with a friend who had smoked in the car. Patient had also been out of for Perforomist and Pulmicort due to her loss of insurance. She was seen by Dr. Ohara in the pulmonary office on 03/15/2018 and again in 03/26/2018 in follow-up, she was treated with rounds of steroids, and antibiotics. During the last visit she was prescribed Levaquin 500 mg daily for 7 days, in addition to prednisone taper. However her symptoms became progressively worse despite the treatment, she was having subjective fever and chills at home, chest tightness, wheezing, chest congestion, productive cough and she presented to the emergency department for further evaluation and treatment. Chest x-ray completed in the emergency department on 04/02/2018 showed normal chest x-ray. EKG showed normal sinus rhythm with frequent PVCs. Blood work showed leukocytosis WBC of 17.8, sodium of 141, potassium is 4.1, chloride of 97, carbon dioxide of 32, BUN of 34, creatinine of 1.0, troponin and cardiac enzymes were negative 1, proBNP was within normal limits at 412. D-dimer was negative. Patient has a history of severe Gold stage IV chronic obstructive pulmonary disease with an underlying FEV1 value of 27% of predicted. Other history includes rheumatoid arthritis, pneumonia, hypertension, gout, colitis, cancer of the vulva with surgical resection, depression, patient is an ex-smoker. Patient underwent an open right colectomy on 07/13/2017 for a small bowel obstruction by Dr. Burger, she had subsequently developed a fascial dehiscence and required reclosure of her abdominal wall. We are seeing the patient today in consultation for an acute COPD exacerbation with failed outpatient treatment. On 04/03/2018 patient seen in follow-up on medical surgical floor. She reports slight improvement with breathing, sounds still remain very diminished, tight and wheezy slightly better air movement noted bilaterally. Afebrile, signs are stable, as a stable, she is on room air with O2 sat at 94%, continue current medical treatment, continue same dose steroids, empiric antibiotics, belies treatments, his labs have been reviewed, no new chest x-rays. Not back to her baseline yet, but improving. On 04/04/2018 patient seen in follow-up on medical surgical floor. She reports limited improvement in her breathing, patient remains very dyspneic with any exertion, there are end-expiratory wheezes bilaterally. She is not able to bring up any phlegm. Room air oxygen is 93%, she is afebrile, she has been treated with high-dose steroids, and patient does not think she has made much improvement. She is requesting to have a bronchoscopy with therapeutic BAL. Patient is making slow improvement, and we will continue with current medical treatment for now, unless there is deterioration in her status. In view of her very poor lung function, the risk of bronchoscopy would outweigh any potential benefit. This was explained to the patient, and the potential of the patient ending up on a mechanical ventilator in view of her poor lung function. Patient agreed to continue with current medical treatment as long as there is improvement. Objective - Vital Signs Vital signs: Vital Signs Temp 98.4 F 04/04/18 06:34 Pulse 96 04/04/18 08:56 Resp 16 04/04/18 06:34 BP 133/70 04/04/18 06:34 Pulse Ox 93 L 04/04/18 06:34 Intake & Output 04/03/18 04/04/18 04/04/18 18:59 06:59 18:59 Output Total 1 Balance -1 Weight 72 kg Output: Urine 1 Other: Voiding Method Toilet Toilet # Voids 3 4 - Exam GENERAL EXAM: Alert, pleasant, 63-year-old white female comfortable in no apparent distress. HEAD: Normocephalic/atraumatic. EYES: Normal reaction of pupils, equal size. Conjunctiva pink, sclera white. NOSE: Clear with pink turbinates. THROAT: No erythema or exudates. NECK: No masses, no JVD, no thyroid enlargement, no adenopathy. CHEST: No chest wall deformity. Symmetrical expansion. LUNGS: Diminished lung sounds bilaterally, with diffuse wheezes. CVS: Regular rate and rhythm, normal S1 and S2, no gallops, no murmurs, no rubs ABDOMEN: Soft, nontender. No hepatosplenomegaly, normal bowel sounds, no guarding or rigidity. EXTREMITIES: No clubbing, no edema, no cyanosis, 2+ pulses and upper and lower extremities. MUSCULOSKELETAL: Muscle strength and tone normal. SPINE: No scoliosis or deformity SKIN: No rashes CENTRAL NERVOUS SYSTEM: Alert and oriented -3. No focal deficits, tone is normal in all 4 extremities. PSYCHIATRIC: Alert and oriented -3. Appropriate affect. Intact judgment and insight. - Labs CBC & Chem 7: 04/03/18 09:41 04/03/18 09:41 Labs: Abnormal Lab Results - Last 24 Hours (Table) 04/03/18 04/03/18 04/03/18 Range/Units 11:32 17:51 20:49 POC Glucose (mg/dL) 136 H 148 H 128 H (75-99) mg/dL 04/04/18 Range/Units 07:06 POC Glucose (mg/dL) 136 H (75-99) mg/dL Assessment and Plan Plan: Assessment: #1. Acute exacerbation of chronic obstructive pulmonary disease with purulent tracheobronchitis, with failed outpatient treatment #2. Advanced severe COPD, GOLD stage IV, baseline FEV1 of 27% of predicted, chronic hypercapnic respiratory failure #3. Leukocytosis, possibly related to repeated rounds of steroids #4. History of nicotine dependence, currently in remission #5. Rheumatoid arthritis #6. Hypertension #7. Seasonal ALLERGIES #8. Depression #9. History of right colectomy in June 2017 for small bowel obstruction with subsequent wound dehiscence and reclosure #10. History of vulvar cancer with resection, hysterectomy Plan: We'll continue current medical treatment, patient is making slow improvement, bronchoscopy would be risky with the patient with a lung function of only 27%, and the patient could potentially end up requiring mechanical ventilation during the bronchoscopy. For as long as there is full improvement, we will continue the medical treatment unless there is worsening of the clinical status. Patient is in agreement I performed a history & physical examination of the patient and discussed their management with my nurse practitioner, Savanah Mart. I reviewed the nurse practitioner's note and agree with the documented findings and plan of care. Lung sounds are tight and wheezy. The findings and the impression was discussed with the patient. I attest to the documentation by the nurse practitioner. Time with Patient: Less than 30
[2018-04-04] MEDS: FUROSEMIDE 40 MG TAB PO PRN (15:35)
[2018-04-04 17:17] LABS: Glucose,Whole Blood 185 mg/dL (75-99)
[2018-04-04 20:46] LABS: Glucose,Whole Blood 127 mg/dL (75-99)
[2018-04-04] MEDS: diphenhydrAMINE 50 MG CAP PO SCH (21:13)
[2018-04-04] MEDS: MONTELUKAST 10 MG TAB PO SCH (21:14)
[2018-04-05] MEDS: HYDROcodone/APAP 10-325MG 1 EACH TAB PO PRN ×3 (01:52→20:55)
[2018-04-05] MEDS: methylPREDNISolone SOD SUCCI 125 MG/2 ML VIAL IV SCH ×4 (06:15→23:37)
[2018-04-05 07:13] LABS: Glucose,Whole Blood 126 mg/dL (75-99)
[2018-04-05] MEDS: INSULIN ASPART 100 UNIT/ML 1 ML 10 ML VIAL SQ SCH ×4 (07:16→20:46)
[2018-04-05] MEDS: BUDESONIDE 1 MG/2 ML NEBU INHALATION SCH ×2 (07:32→19:41)
[2018-04-05] MEDS: IPRATROPIUM-ALBUTEROL 3 ML NEB INHALATION SCH ×4 (07:32→19:41)
[2018-04-05] MEDS: FORMOTEROL FUMARATE 20 MCG/2 ML NEBU INHALATION SCH ×2 (07:32→19:41)
[2018-04-05] MEDS: NYSTATIN 100,000 UNIT/ML SUSP 500,000 UNIT/5 ML CUP PO SCH ×4 (08:17→20:55)
[2018-04-05] MEDS: IBUPROFEN 800 MG TAB PO PRN ×2 (08:17→18:51)
[2018-04-05] MEDS: guaiFENesin 600 MG TABLET.ER PO SCH ×2 (08:17→20:55)
[2018-04-05] MEDS: LISINOPRIL 20 MG TAB PO SCH (08:17)
--- NOTE | 2018-04-05 10:49 | P.PN ---
Subjective Progress Note Date: 04/05/18 Principal diagnosis: Acute exacerbation of chronic obstructive pulmonary disease with purulent tracheobronchitis with failed outpatient treatment Estelle is a 63-year-old white female patient of Dr. Mijares who presented to the emergency department on 04/02/2018 at 03 38 with complaints of increasing dyspnea, chest congestion, wheezing, chest tightness. Patient has had ongoing symptoms since early in February, after she had traveled to [place] with a friend who had smoked in the car. Patient had also been out of for Perforomist and Pulmicort due to her loss of insurance. She was seen by Dr. Ohara in the pulmonary office on 03/15/2018 and again in 03/26/2018 in follow-up, she was treated with rounds of steroids, and antibiotics. During the last visit she was prescribed Levaquin 500 mg daily for 7 days, in addition to prednisone taper. However her symptoms became progressively worse despite the treatment, she was having subjective fever and chills at home, chest tightness, wheezing, chest congestion, productive cough and she presented to the emergency department for further evaluation and treatment. Chest x-ray completed in the emergency department on 04/02/2018 showed normal chest x-ray. EKG showed normal sinus rhythm with frequent PVCs. Blood work showed leukocytosis WBC of 17.8, sodium of 141, potassium is 4.1, chloride of 97, carbon dioxide of 32, BUN of 34, creatinine of 1.0, troponin and cardiac enzymes were negative 1, proBNP was within normal limits at 412. D-dimer was negative. Patient has a history of severe Gold stage IV chronic obstructive pulmonary disease with an underlying FEV1 value of 27% of predicted. Other history includes rheumatoid arthritis, pneumonia, hypertension, gout, colitis, cancer of the vulva with surgical resection, depression, patient is an ex-smoker. Patient underwent an open right colectomy on 07/13/2017 for a small bowel obstruction by Dr. Burger, she had subsequently developed a fascial dehiscence and required reclosure of her abdominal wall. We are seeing the patient today in consultation for an acute COPD exacerbation with failed outpatient treatment. On 04/03/2018 patient seen in follow-up on medical surgical floor. She reports slight improvement with breathing, sounds still remain very diminished, tight and wheezy slightly better air movement noted bilaterally. Afebrile, signs are stable, as a stable, she is on room air with O2 sat at 94%, continue current medical treatment, continue same dose steroids, empiric antibiotics, belies treatments, his labs have been reviewed, no new chest x-rays. Not back to her baseline yet, but improving. On 04/04/2018 patient seen in follow-up on medical surgical floor. She reports limited improvement in her breathing, patient remains very dyspneic with any exertion, there are end-expiratory wheezes bilaterally. She is not able to bring up any phlegm. Room air oxygen is 93%, she is afebrile, she has been treated with high-dose steroids, and patient does not think she has made much improvement. She is requesting to have a bronchoscopy with therapeutic BAL. Patient is making slow improvement, and we will continue with current medical treatment for now, unless there is deterioration in her status. In view of her very poor lung function, the risk of bronchoscopy would outweigh any potential benefit. This was explained to the patient, and the potential of the patient ending up on a mechanical ventilator in view of her poor lung function. Patient agreed to continue with current medical treatment as long as there is improvement. On 04/05/2018 patient seen in follow-up. Continues to slowly improve, lung sounds are positive for diffuse wheezes, she denies worsening dyspnea. Room air pulse ox is 93%, vital signs are stable, still not able to bring up any sputum. Continues is on IV Solu-Medrol, nebulized bronchodilators. She tolerates ambulation, no acute events overnight. Objective - Vital Signs Vital signs: Vital Signs Temp 97.6 F 04/05/18 06:01 Pulse 96 04/05/18 07:52 Resp 18 04/05/18 06:01 BP 130/68 04/05/18 06:01 Pulse Ox 93 L 04/05/18 06:01 Intake & Output 04/04/18 04/05/18 04/05/18 18:59 06:59 18:59 Output Total 1 Balance -1 Output: Urine 1 Other: Voiding Method Toilet # Voids 3 3 - Exam GENERAL EXAM: Alert, pleasant, 63-year-old white female comfortable in no apparent distress. HEAD: Normocephalic/atraumatic. EYES: Normal reaction of pupils, equal size. Conjunctiva pink, sclera white. NOSE: Clear with pink turbinates. THROAT: No erythema or exudates. NECK: No masses, no JVD, no thyroid enlargement, no adenopathy. CHEST: No chest wall deformity. Symmetrical expansion. LUNGS: Diminished lung sounds bilaterally, with diffuse wheezes. CVS: Regular rate and rhythm, normal S1 and S2, no gallops, no murmurs, no rubs ABDOMEN: Soft, nontender. No hepatosplenomegaly, normal bowel sounds, no guarding or rigidity. EXTREMITIES: No clubbing, no edema, no cyanosis, 2+ pulses and upper and lower extremities. MUSCULOSKELETAL: Muscle strength and tone normal. SPINE: No scoliosis or deformity SKIN: No rashes CENTRAL NERVOUS SYSTEM: Alert and oriented -3. No focal deficits, tone is normal in all 4 extremities. PSYCHIATRIC: Alert and oriented -3. Appropriate affect. Intact judgment and insight. - Labs CBC & Chem 7: 04/03/18 09:41 04/03/18 09:41 Labs: Abnormal Lab Results - Last 24 Hours (Table) 04/04/18 04/04/18 04/04/18 Range/Units 12:24 17:14 20:44 POC Glucose (mg/dL) 142 H 185 H 127 H (75-99) mg/dL 04/05/18 Range/Units 07:10 POC Glucose (mg/dL) 126 H (75-99) mg/dL Assessment and Plan Plan: Assessment: #1. Acute exacerbation of chronic obstructive pulmonary disease with purulent tracheobronchitis, with failed outpatient treatment #2. Advanced severe COPD, GOLD stage IV, baseline FEV1 of 27% of predicted, chronic hypercapnic respiratory failure #3. Leukocytosis, possibly related to repeated rounds of steroids #4. History of nicotine dependence, currently in remission #5. Rheumatoid arthritis #6. Hypertension #7. Seasonal ALLERGIES #8. Depression #9. History of right colectomy in June 2017 for small bowel obstruction with subsequent wound dehiscence and reclosure #10. History of vulvar cancer with resection, hysterectomy Plan: Continue current medical treatment, Solu-Medrol, nebulized bronchodilators, Pulmicort and Perforomist. Continue Mucinex, encourage ambulation. Making slow improvement I performed a history & physical examination of the patient and discussed their management with my nurse practitioner, Savanah Mart. I reviewed the nurse practitioner's note and agree with the documented findings and plan of care. Lung sounds are positive for diffuse wheezes. The findings and the impression was discussed with the patient. I attest to the documentation by the nurse practitioner. Time with Patient: Less than 30
[2018-04-05 11:52] LABS: Glucose,Whole Blood 121 mg/dL (75-99)
[2018-04-05] MEDS: THIAMINE 100 MG TAB PO SCH ×2 (12:23→16:27)
[2018-04-05] MEDS: FUROSEMIDE 40 MG TAB PO PRN (15:42)
[2018-04-05] MEDS: AZITHROMYCIN 500 MG TAB PO SCH (15:42)
[2018-04-05 16:48] LABS: Glucose,Whole Blood 181 mg/dL (75-99)
[2018-04-05 20:35] LABS: Glucose,Whole Blood 112 mg/dL (75-99)
[2018-04-05] MEDS: diphenhydrAMINE 50 MG CAP PO SCH (20:54)
[2018-04-05] MEDS: MONTELUKAST 10 MG TAB PO SCH (20:55)
[2018-04-06] MEDS: IBUPROFEN 800 MG TAB PO PRN ×2 (01:29→21:34)
[2018-04-06] MEDS: methylPREDNISolone SOD SUCCI 125 MG/2 ML VIAL IV SCH ×3 (05:25→17:18)
[2018-04-06] MEDS: IPRATROPIUM-ALBUTEROL 3 ML NEB INHALATION PRN (05:45)
[2018-04-06 07:09] LABS: Glucose,Whole Blood 152 mg/dL (75-99)
[2018-04-06] MEDS: IPRATROPIUM-ALBUTEROL 3 ML NEB INHALATION SCH ×4 (07:32→19:45)
[2018-04-06] MEDS: FORMOTEROL FUMARATE 20 MCG/2 ML NEBU INHALATION SCH ×2 (07:32→19:45)
[2018-04-06] MEDS: BUDESONIDE 1 MG/2 ML NEBU INHALATION SCH ×2 (07:32→19:46)
[2018-04-06] MEDS: INSULIN ASPART 100 UNIT/ML 1 ML 10 ML VIAL SQ SCH ×4 (07:52→21:30)
[2018-04-06] MEDS: guaiFENesin 600 MG TABLET.ER PO SCH ×2 (07:53→21:29)
[2018-04-06] MEDS: NYSTATIN 100,000 UNIT/ML SUSP 500,000 UNIT/5 ML CUP PO SCH ×4 (07:53→21:30)
[2018-04-06] MEDS: LISINOPRIL 20 MG TAB PO SCH (07:53)
[2018-04-06] MEDS: HYDROcodone/APAP 10-325MG 1 EACH TAB PO PRN ×2 (07:59→17:47)
[2018-04-06] MEDS: FUROSEMIDE 40 MG TAB PO PRN (08:36)
[2018-04-06 12:35] LABS: Glucose,Whole Blood 127 mg/dL (75-99)
[2018-04-06] MEDS: THIAMINE 100 MG TAB PO SCH ×2 (13:25→17:18)
[2018-04-06] MEDS: AZITHROMYCIN 500 MG TAB PO SCH (13:25)
--- NOTE | 2018-04-06 13:36 | P.PN ---
Subjective Progress Note Date: 04/06/18 Principal diagnosis: Acute exacerbation of chronic obstructive pulmonary disease, complicated by purulent tracheobronchitis, failed outpatient treatment Estelle is a 63-year-old white female patient of Dr. Mijares who presented to the emergency department on 04/02/2018 at 03 38 with complaints of increasing dyspnea, chest congestion, wheezing, chest tightness. Patient has had ongoing symptoms since early in February, after she had traveled to [place] with a friend who had smoked in the car. Patient had also been out of for Perforomist and Pulmicort due to her loss of insurance. She was seen by Dr. Ohara in the pulmonary office on 03/15/2018 and again in 03/26/2018 in follow-up, she was treated with rounds of steroids, and antibiotics. During the last visit she was prescribed Levaquin 500 mg daily for 7 days, in addition to prednisone taper. However her symptoms became progressively worse despite the treatment, she was having subjective fever and chills at home, chest tightness, wheezing, chest congestion, productive cough and she presented to the emergency department for further evaluation and treatment. Chest x-ray completed in the emergency department on 04/02/2018 showed normal chest x-ray. EKG showed normal sinus rhythm with frequent PVCs. Blood work showed leukocytosis WBC of 17.8, sodium of 141, potassium is 4.1, chloride of 97, carbon dioxide of 32, BUN of 34, creatinine of 1.0, troponin and cardiac enzymes were negative 1, proBNP was within normal limits at 412. D-dimer was negative. Patient has a history of severe Gold stage IV chronic obstructive pulmonary disease with an underlying FEV1 value of 27% of predicted. Other history includes rheumatoid arthritis, pneumonia, hypertension, gout, colitis, cancer of the vulva with surgical resection, depression, patient is an ex-smoker. Patient underwent an open right colectomy on 07/13/2017 for a small bowel obstruction by Dr. Burger, she had subsequently developed a fascial dehiscence and required reclosure of her abdominal wall. We are seeing the patient today in consultation for an acute COPD exacerbation with failed outpatient treatment. On 04/03/2018 patient seen in follow-up on medical surgical floor. She reports slight improvement with breathing, sounds still remain very diminished, tight and wheezy slightly better air movement noted bilaterally. Afebrile, signs are stable, as a stable, she is on room air with O2 sat at 94%, continue current medical treatment, continue same dose steroids, empiric antibiotics, belies treatments, his labs have been reviewed, no new chest x-rays. Not back to her baseline yet, but improving. On 04/04/2018 patient seen in follow-up on medical surgical floor. She reports limited improvement in her breathing, patient remains very dyspneic with any exertion, there are end-expiratory wheezes bilaterally. She is not able to bring up any phlegm. Room air oxygen is 93%, she is afebrile, she has been treated with high-dose steroids, and patient does not think she has made much improvement. She is requesting to have a bronchoscopy with therapeutic BAL. Patient is making slow improvement, and we will continue with current medical treatment for now, unless there is deterioration in her status. In view of her very poor lung function, the risk of bronchoscopy would outweigh any potential benefit. This was explained to the patient, and the potential of the patient ending up on a mechanical ventilator in view of her poor lung function. Patient agreed to continue with current medical treatment as long as there is improvement. On 04/05/2018 patient seen in follow-up. Continues to slowly improve, lung sounds are positive for diffuse wheezes, she denies worsening dyspnea. Room air pulse ox is 93%, vital signs are stable, still not able to bring up any sputum. Continues is on IV Solu-Medrol, nebulized bronchodilators. She tolerates ambulation, no acute events overnight. The patient is seen today 04/06/2018 in follow-up on the regular medical floor. She is currently sitting up in bed. She is awake and alert in no acute distress. She does get quite dyspneic with minimal exertion however. Still not quite back to her baseline. She is maintaining good O2 saturations in the upper 90s on 2 L/m per nasal cannula. She's been afebrile. Objective - Vital Signs Vital signs: Vital Signs Temp 97.3 F L 04/06/18 06:20 Pulse 96 04/06/18 11:47 Resp 24 04/06/18 06:20 BP 167/75 04/06/18 06:20 Pulse Ox 97 04/06/18 06:20 Intake & Output 04/05/18 04/06/18 04/06/18 18:59 06:59 18:59 Other: Voiding Method Toilet # Voids 1 4 - Exam GENERAL EXAM: Alert, pleasant, 63-year-old white female comfortable in no apparent distress. HEAD: Normocephalic/atraumatic. EYES: Normal reaction of pupils, equal size. Conjunctiva pink, sclera white. NOSE: Clear with pink turbinates. THROAT: No erythema or exudates. NECK: No masses, no JVD, no thyroid enlargement, no adenopathy. CHEST: No chest wall deformity. Symmetrical expansion. LUNGS: Diminished lung sounds bilaterally, with diffuse wheezes. CVS: Regular rate and rhythm, normal S1 and S2, no gallops, no murmurs, no rubs ABDOMEN: Soft, nontender. No hepatosplenomegaly, normal bowel sounds, no guarding or rigidity. EXTREMITIES: No clubbing, no edema, no cyanosis, 2+ pulses and upper and lower extremities. MUSCULOSKELETAL: Muscle strength and tone normal. SPINE: No scoliosis or deformity SKIN: No rashes CENTRAL NERVOUS SYSTEM: Alert and oriented -3. No focal deficits, tone is normal in all 4 extremities. PSYCHIATRIC: Alert and oriented -3. Appropriate affect. Intact judgment and insight. - Labs CBC & Chem 7: 04/03/18 09:41 04/03/18 09:41 Labs: Abnormal Lab Results - Last 24 Hours (Table) 04/05/18 04/05/18 04/06/18 Range/Units 16:44 20:34 07:07 POC Glucose (mg/dL) 181 H 112 H 152 H (75-99) mg/dL 04/06/18 Range/Units 12:29 POC Glucose (mg/dL) 127 H (75-99) mg/dL Assessment and Plan Assessment: Assessment: #1. Acute exacerbation of chronic obstructive pulmonary disease with purulent tracheobronchitis, with failed outpatient treatment #2. Advanced severe COPD, GOLD stage IV, baseline FEV1 of 27% of predicted, chronic hypercapnic respiratory failure #3. Leukocytosis, possibly related to repeated rounds of steroids #4. History of nicotine dependence, currently in remission #5. Rheumatoid arthritis #6. Hypertension #7. Seasonal ALLERGIES #8. Depression #9. History of right colectomy in June 2017 for small bowel obstruction with subsequent wound dehiscence and reclosure #10. History of vulvar cancer with resection, hysterectomy Plan: The patient was seen and evaluated by Dr. Ibrahim. She has been slow to progress. We'll continue with her current treatment plan. Increase her activity as tolerated. Continue to follow. I, the cosigning physician, performed a history & physical examination of the patient. Lungs sounds with bilateral wheezing. Diminished. Maintaining good O2 saturations in the 90s on 2 L/m per nasal cannula. I discussed the assessment and plan of care with my nurse practitioner, Symone Ohara. I attest to the above note as dictated by her.
[2018-04-06 17:18] LABS: Glucose,Whole Blood 201 mg/dL (75-99)
[2018-04-06 20:28] LABS: Glucose,Whole Blood 116 mg/dL (75-99)
[2018-04-06] MEDS: diphenhydrAMINE 50 MG CAP PO SCH (21:29)
[2018-04-06] MEDS: MONTELUKAST 10 MG TAB PO SCH (21:29)
--- NOTE | 2018-04-06 23:44 | P.PN ---
Subjective Progress Note Date: 04/04/18 Principal diagnosis: Acute COPD exacerbation Patient is a 63-year-old female with known history of advanced COPD with FEV1 of 27% of predicted on home oxygen, her brother arthritis, history of open right colectomy on 07/13/2017 due to small bowel obstruction and subsequently developed facial lesions and required reclosure of her abdominal wall and other multiple medical problems came to ER with complaints of worsening shortness of breath congestion and wheezing. Patient has been having symptoms for the past 1 month and was treated with oral steroids and antibiotics and was sent home with antibiotics in the form of Levaquin recently. Symptoms have been progressively getting worse along with subjective fevers and chills. Patient came to ER for further evaluation Chest x-ray is negative for an acute process EKG showed normal sinus rhythm with frequent PVCs BNP 412 D-dimer negative 04/03/2018 Patient is still having shortness of breath but did improve clinically slightly. Still having diminished breath sounds bilaterally and slow to improve. Not to baseline yet. Otherwise patient is being continued on IV steroids. Patient did mention antibiotics. Pulmonary is following. Continue with the oxygen with another cannula. 04/04/2018 Patient did have some improvement in breathing but otherwise patient still having expiratory wheezing and tightness in the lungs. Saturating well on nasal cannula. Patient is being continued on steroids and breathing treatments. No complaints of chest pain. No nausea vomiting or abdominal pain. Pulmonary is following. No chest pain. No nausea vomiting or abdominal pain. No headache or dizziness lightheadedness. No abdominal pain. All other review of systems negative except the above Current medications reviewed Objective - Vital Signs Vital signs: Vital Signs Temp 97.5 F L 04/04/18 14:33 Pulse 96 04/04/18 20:46 Resp 16 04/04/18 14:33 BP 130/64 04/04/18 14:33 Pulse Ox 95 04/04/18 14:33 Intake & Output 04/04/18 04/04/18 04/05/18 06:59 18:59 06:59 Output Total 1 Balance -1 Output: Urine 1 Other: Voiding Method Toilet # Voids 4 3 - Exam PHYSICAL EXAMINATION: Patient is lying in the bed comfortably, no acute distress, awake alert and oriented.. HEENT: Normocephalic. Neck is supple. Pupils reactive. Nostrils clear. Oral cavity is moist. Ears reveal no drainage. Neck reveals no JVD, carotid bruits, or thyromegaly. CHEST EXAMINATION: Trachea is central. Symmetrical expansion. Bilateral diminished air entry with mild expiratory wheezing CARDIAC: Normal S1, S2 with no gallops. No murmurs ABDOMEN: Soft. Bowel sounds normal. No organomegaly. No abdominal bruits. Extremities: reveal no edema. No clubbing or cyanosis Neurologically awake, alert, oriented x3 with well-coordinated movements. No focal deficits noted Skin: No rash or skin lesions. Psychiatric: Coperative. Nonsuicidal Musculoskeletal: No joint swelling or deformity. Normal range of motion. - Labs CBC & Chem 7: 04/03/18 09:41 04/03/18 09:41 Labs: Abnormal Lab Results - Last 24 Hours (Table) 04/04/18 04/04/18 04/04/18 Range/Units 07:06 12:24 17:14 POC Glucose (mg/dL) 136 H 142 H 185 H (75-99) mg/dL 04/04/18 Range/Units 20:44 POC Glucose (mg/dL) 127 H (75-99) mg/dL Assessment and Plan Assessment: Acute COPD exacerbation and failed outpatient treatment Advanced COPD with FEV1 of 27% of predicted Leukocytosis due to recent steroid use Chronic hypercapnic and hypoxic respiratory failure. On home oxygen at 3 L Rheumatoid arthritis Hypertension Depression Seasonal ALLERGIES History of nicotine addiction. History of bowel obstruction status post right colectomy in June 2017 with subsequent wound dehiscence and reclosure History of vulvar cancer with resection and hysterectomy DVT prophylaxis Plan: Patient will be continued on IV steroids and DuoNeb's. Pulmicort and Perforomist was added. Continue with the Mucinex and home medications and follow closely. Further recommendations based on the clinical course. Pulmonary is on board. Prognosis is guarded with advanced COPD and multiple other medical problems and comorbid conditions. Time with Patient: Greater than 30
--- NOTE | 2018-04-06 23:45 | P.PN ---
Subjective Progress Note Date: 04/05/18 Principal diagnosis: Acute COPD exacerbation Patient is a 63-year-old female with known history of advanced COPD with FEV1 of 27% of predicted on home oxygen, her brother arthritis, history of open right colectomy on 07/13/2017 due to small bowel obstruction and subsequently developed facial lesions and required reclosure of her abdominal wall and other multiple medical problems came to ER with complaints of worsening shortness of breath congestion and wheezing. Patient has been having symptoms for the past 1 month and was treated with oral steroids and antibiotics and was sent home with antibiotics in the form of Levaquin recently. Symptoms have been progressively getting worse along with subjective fevers and chills. Patient came to ER for further evaluation Chest x-ray is negative for an acute process EKG showed normal sinus rhythm with frequent PVCs BNP 412 D-dimer negative 04/03/2018 Patient is still having shortness of breath but did improve clinically slightly. Still having diminished breath sounds bilaterally and slow to improve. Not to baseline yet. Otherwise patient is being continued on IV steroids. Patient did mention antibiotics. Pulmonary is following. Continue with the oxygen with another cannula. 04/04/2018 Patient did have some improvement in breathing but otherwise patient still having expiratory wheezing and tightness in the lungs. Saturating well on nasal cannula. Patient is being continued on steroids and breathing treatments. No complaints of chest pain. No nausea vomiting or abdominal pain. Pulmonary is following. 04/05/2018 Patient did have some improvement in breathing status otherwise patient is still wheezing. Not at baseline. Patient does have advanced COPD. No chest pain. No nausea vomiting or abdominal pain. No headache or dizziness lightheadedness. No abdominal pain. All other review of systems negative except the above Current medications reviewed Objective - Vital Signs Vital signs: Vital Signs Temp 98.0 F 04/05/18 15:00 Pulse 100 04/05/18 16:12 Resp 18 04/05/18 15:00 BP 121/66 04/05/18 15:00 Pulse Ox 92 L 04/05/18 15:00 Intake & Output 04/04/18 04/05/18 04/05/18 18:59 06:59 18:59 Output Total 1 Balance -1 Output: Urine 1 Other: Voiding Method Toilet # Voids 3 3 1 - Exam PHYSICAL EXAMINATION: Patient is lying in the bed comfortably, no acute distress, awake alert and oriented.. HEENT: Normocephalic. Neck is supple. Pupils reactive. Nostrils clear. Oral cavity is moist. Ears reveal no drainage. Neck reveals no JVD, carotid bruits, or thyromegaly. CHEST EXAMINATION: Trachea is central. Symmetrical expansion. Bilateral diminished air entry with mild expiratory wheezing CARDIAC: Normal S1, S2 with no gallops. No murmurs ABDOMEN: Soft. Bowel sounds normal. No organomegaly. No abdominal bruits. Extremities: reveal no edema. No clubbing or cyanosis Neurologically awake, alert, oriented x3 with well-coordinated movements. No focal deficits noted Skin: No rash or skin lesions. Psychiatric: Coperative. Nonsuicidal Musculoskeletal: No joint swelling or deformity. Normal range of motion. - Labs CBC & Chem 7: 04/03/18 09:41 04/03/18 09:41 Labs: Abnormal Lab Results - Last 24 Hours (Table) 04/04/18 04/04/18 04/05/18 Range/Units 17:14 20:44 07:10 POC Glucose (mg/dL) 185 H 127 H 126 H (75-99) mg/dL 04/05/18 04/05/18 Range/Units 11:49 16:44 POC Glucose (mg/dL) 121 H 181 H (75-99) mg/dL Assessment and Plan Assessment: Acute COPD exacerbation and failed outpatient treatment Advanced COPD with FEV1 of 27% of predicted Leukocytosis due to recent steroid use Chronic hypercapnic and hypoxic respiratory failure. On home oxygen at 3 L Rheumatoid arthritis Hypertension Depression Seasonal ALLERGIES History of nicotine addiction. History of bowel obstruction status post right colectomy in June 2017 with subsequent wound dehiscence and reclosure History of vulvar cancer with resection and hysterectomy DVT prophylaxis Plan: Patient will be continued on IV steroids and DuoNeb's. Pulmicort and Perforomist was added. Continue with the Mucinex and home medications and follow closely. Further recommendations based on the clinical course. Pulmonary is on board. Prognosis is guarded with advanced COPD and multiple other medical problems and comorbid conditions. Time with Patient: Greater than 30
--- NOTE | 2018-04-06 23:46 | P.PN ---
Subjective Progress Note Date: 04/06/18 Principal diagnosis: Acute COPD exacerbation Patient is a 63-year-old female with known history of advanced COPD with FEV1 of 27% of predicted on home oxygen, her brother arthritis, history of open right colectomy on 07/13/2017 due to small bowel obstruction and subsequently developed facial lesions and required reclosure of her abdominal wall and other multiple medical problems came to ER with complaints of worsening shortness of breath congestion and wheezing. Patient has been having symptoms for the past 1 month and was treated with oral steroids and antibiotics and was sent home with antibiotics in the form of Levaquin recently. Symptoms have been progressively getting worse along with subjective fevers and chills. Patient came to ER for further evaluation Chest x-ray is negative for an acute process EKG showed normal sinus rhythm with frequent PVCs BNP 412 D-dimer negative 04/03/2018 Patient is still having shortness of breath but did improve clinically slightly. Still having diminished breath sounds bilaterally and slow to improve. Not to baseline yet. Otherwise patient is being continued on IV steroids. Patient did mention antibiotics. Pulmonary is following. Continue with the oxygen with another cannula. 04/04/2018 Patient did have some improvement in breathing but otherwise patient still having expiratory wheezing and tightness in the lungs. Saturating well on nasal cannula. Patient is being continued on steroids and breathing treatments. No complaints of chest pain. No nausea vomiting or abdominal pain. Pulmonary is following. 04/05/2018 Patient did have some improvement in breathing status otherwise patient is still wheezing. Not at baseline. Patient does have advanced COPD. 04/06/2018 Patient is able to sit on the bed today. Still having exertional short of breath with minimal walking. Patient does have diffuse wheezing. Continued on IV steroids and breathing treatments. Pulmonary is on board. No chest pain. No nausea vomiting or abdominal pain. No headache or dizziness lightheadedness. No abdominal pain. All other review of systems negative except the above Current medications reviewed Objective - Vital Signs Vital signs: Vital Signs Temp 98.0 F 04/06/18 22:42 Pulse 104 H 04/06/18 22:42 Resp 18 04/06/18 22:42 BP 126/62 04/06/18 22:42 Pulse Ox 92 L 04/06/18 22:42 Intake & Output 04/06/18 04/06/18 04/07/18 06:59 18:59 06:59 Intake Total 1300 Balance 1300 Intake: Oral 1300 Other: # Voids 4 3 - Exam PHYSICAL EXAMINATION: Patient is lying in the bed comfortably, no acute distress, awake alert and oriented.. HEENT: Normocephalic. Neck is supple. Pupils reactive. Nostrils clear. Oral cavity is moist. Ears reveal no drainage. Neck reveals no JVD, carotid bruits, or thyromegaly. CHEST EXAMINATION: Trachea is central. Symmetrical expansion. Bilateral diminished air entry with mild expiratory wheezing CARDIAC: Normal S1, S2 with no gallops. No murmurs ABDOMEN: Soft. Bowel sounds normal. No organomegaly. No abdominal bruits. Extremities: reveal no edema. No clubbing or cyanosis Neurologically awake, alert, oriented x3 with well-coordinated movements. No focal deficits noted Skin: No rash or skin lesions. Psychiatric: Coperative. Nonsuicidal Musculoskeletal: No joint swelling or deformity. Normal range of motion. - Labs CBC & Chem 7: 04/03/18 09:41 04/03/18 09:41 Labs: Abnormal Lab Results - Last 24 Hours (Table) 04/06/18 04/06/18 04/06/18 Range/Units 07:07 12:29 17:11 POC Glucose (mg/dL) 152 H 127 H 201 H (75-99) mg/dL 04/06/18 Range/Units 20:24 POC Glucose (mg/dL) 116 H (75-99) mg/dL Assessment and Plan Assessment: Acute COPD exacerbation and failed outpatient treatment Advanced COPD with FEV1 of 27% of predicted Leukocytosis due to recent steroid use Chronic hypercapnic and hypoxic respiratory failure. On home oxygen at 3 L Rheumatoid arthritis Hypertension Depression Seasonal ALLERGIES History of nicotine addiction. History of bowel obstruction status post right colectomy in June 2017 with subsequent wound dehiscence and reclosure History of vulvar cancer with resection and hysterectomy DVT prophylaxis Plan: Patient will be continued on IV steroids and DuoNeb's. Pulmicort and Perforomist was added. Continue with the Mucinex and home medications and follow closely. Further recommendations based on the clinical course. Pulmonary is on board. Prognosis is guarded with advanced COPD and multiple other medical problems and comorbid conditions. Time with Patient: Greater than 30
[2018-04-07] MEDS: methylPREDNISolone SOD SUCCI 125 MG/2 ML VIAL IV SCH ×3 (00:02→11:41)
[2018-04-07] MEDS: IPRATROPIUM-ALBUTEROL 3 ML NEB INHALATION PRN (00:48)
[2018-04-07] MEDS: HYDROcodone/APAP 10-325MG 1 EACH TAB PO PRN ×3 (02:23→21:07)
[2018-04-07] MEDS: FORMOTEROL FUMARATE 20 MCG/2 ML NEBU INHALATION SCH ×2 (06:54→19:13)
[2018-04-07] MEDS: BUDESONIDE 1 MG/2 ML NEBU INHALATION SCH ×2 (06:54→19:13)
[2018-04-07] MEDS: IPRATROPIUM-ALBUTEROL 3 ML NEB INHALATION SCH ×4 (06:54→19:13)
[2018-04-07 07:08] LABS: Glucose,Whole Blood 119 mg/dL (75-99)
[2018-04-07] MEDS: INSULIN ASPART 100 UNIT/ML 1 ML 10 ML VIAL SQ SCH ×4 (07:19→21:07)
[2018-04-07] MEDS: NYSTATIN 100,000 UNIT/ML SUSP 500,000 UNIT/5 ML CUP PO SCH ×4 (07:32→21:06)
[2018-04-07] MEDS: LISINOPRIL 20 MG TAB PO SCH (07:32)
[2018-04-07] MEDS: IBUPROFEN 800 MG TAB PO PRN ×2 (07:35→14:50)
[2018-04-07] MEDS: FUROSEMIDE 40 MG TAB PO PRN (08:19)
[2018-04-07] MEDS: guaiFENesin 600 MG TABLET.ER PO SCH ×2 (08:19→21:07)
[2018-04-07 11:41] LABS: Glucose,Whole Blood 124 mg/dL (75-99)
[2018-04-07] MEDS: AZITHROMYCIN 500 MG TAB PO SCH (11:41)
[2018-04-07] MEDS: THIAMINE 100 MG TAB PO SCH ×2 (11:41→16:50)
--- NOTE | 2018-04-07 15:57 | P.PN ---
Subjective Progress Note Date: 04/07/18 Principal diagnosis: Acute exacerbation of COPD Estelle is a 63-year-old white female patient of Dr. Mijares who presented to the emergency department on 04/02/2018 at 03 38 with complaints of increasing dyspnea, chest congestion, wheezing, chest tightness. Patient has had ongoing symptoms since early in February, after she had traveled to [place] with a friend who had smoked in the car. Patient had also been out of for Perforomist and Pulmicort due to her loss of insurance. She was seen by Dr. Ohara in the pulmonary office on 03/15/2018 and again in 03/26/2018 in follow-up, she was treated with rounds of steroids, and antibiotics. During the last visit she was prescribed Levaquin 500 mg daily for 7 days, in addition to prednisone taper. However her symptoms became progressively worse despite the treatment, she was having subjective fever and chills at home, chest tightness, wheezing, chest congestion, productive cough and she presented to the emergency department for further evaluation and treatment. Chest x-ray completed in the emergency department on 04/02/2018 showed normal chest x-ray. EKG showed normal sinus rhythm with frequent PVCs. Blood work showed leukocytosis WBC of 17.8, sodium of 141, potassium is 4.1, chloride of 97, carbon dioxide of 32, BUN of 34, creatinine of 1.0, troponin and cardiac enzymes were negative 1, proBNP was within normal limits at 412. D-dimer was negative. Patient has a history of severe Gold stage IV chronic obstructive pulmonary disease with an underlying FEV1 value of 27% of predicted. Other history includes rheumatoid arthritis, pneumonia, hypertension, gout, colitis, cancer of the vulva with surgical resection, depression, patient is an ex-smoker. Patient underwent an open right colectomy on 07/13/2017 for a small bowel obstruction by Dr. Burger, she had subsequently developed a fascial dehiscence and required reclosure of her abdominal wall. We are seeing the patient today in consultation for an acute COPD exacerbation with failed outpatient treatment. On 04/03/2018 patient seen in follow-up on medical surgical floor. She reports slight improvement with breathing, sounds still remain very diminished, tight and wheezy slightly better air movement noted bilaterally. Afebrile, signs are stable, as a stable, she is on room air with O2 sat at 94%, continue current medical treatment, continue same dose steroids, empiric antibiotics, belies treatments, his labs have been reviewed, no new chest x-rays. Not back to her baseline yet, but improving. On 04/04/2018 patient seen in follow-up on medical surgical floor. She reports limited improvement in her breathing, patient remains very dyspneic with any exertion, there are end-expiratory wheezes bilaterally. She is not able to bring up any phlegm. Room air oxygen is 93%, she is afebrile, she has been treated with high-dose steroids, and patient does not think she has made much improvement. She is requesting to have a bronchoscopy with therapeutic BAL. Patient is making slow improvement, and we will continue with current medical treatment for now, unless there is deterioration in her status. In view of her very poor lung function, the risk of bronchoscopy would outweigh any potential benefit. This was explained to the patient, and the potential of the patient ending up on a mechanical ventilator in view of her poor lung function. Patient agreed to continue with current medical treatment as long as there is improvement. On 04/05/2018 patient seen in follow-up. Continues to slowly improve, lung sounds are positive for diffuse wheezes, she denies worsening dyspnea. Room air pulse ox is 93%, vital signs are stable, still not able to bring up any sputum. Continues is on IV Solu-Medrol, nebulized bronchodilators. She tolerates ambulation, no acute events overnight. The patient is seen today 04/06/2018 in follow-up on the regular medical floor. She is currently sitting up in bed. She is awake and alert in no acute distress. She does get quite dyspneic with minimal exertion however. Still not quite back to her baseline. She is maintaining good O2 saturations in the upper 90s on 2 L/m per nasal cannula. She's been afebrile. Reevaluated today on 04/07/2018, improving but slowly. Less cough and less wheezing less shortness of breath. Patient continues to have dyspnea on exertion which is chronic and she will continue to have it for the rest of her life considering her underlying severe COPD. Objective - Vital Signs Vital signs: Vital Signs Temp 97.5 F L 04/07/18 15:00 Pulse 101 H 04/07/18 15:00 Resp 18 04/07/18 15:00 BP 130/72 06/10/18 15:00 Pulse Ox 93 L 04/07/18 15:00 Intake & Output 04/06/18 04/07/18 04/07/18 18:59 06:59 18:59 Intake Total 1300 Balance 1300 Intake: Oral 1300 Other: Voiding Method Toilet # Voids 3 2 3 - Exam GENERAL EXAM: Alert, pleasant, 63-year-old white female comfortable in no apparent distress. HEAD: Normocephalic/atraumatic. EYES: Normal reaction of pupils, equal size. Conjunctiva pink, sclera white. NOSE: Clear with pink turbinates. THROAT: No erythema or exudates. NECK: No masses, no JVD, no thyroid enlargement, no adenopathy. CHEST: No chest wall deformity. Symmetrical expansion. LUNGS: Diminished lung sounds bilaterally, with diffuse wheezes. CVS: Regular rate and rhythm, normal S1 and S2, no gallops, no murmurs, no rubs ABDOMEN: Soft, nontender. No hepatosplenomegaly, normal bowel sounds, no guarding or rigidity. EXTREMITIES: No clubbing, no edema, no cyanosis, 2+ pulses and upper and lower extremities. MUSCULOSKELETAL: Muscle strength and tone normal. SPINE: No scoliosis or deformity SKIN: No rashes CENTRAL NERVOUS SYSTEM: Alert and oriented -3. No focal deficits, tone is normal in all 4 extremities. PSYCHIATRIC: Alert and oriented -3. Appropriate affect. Intact judgment and insight. - Labs CBC & Chem 7: 04/03/18 09:41 04/03/18 09:41 Labs: Abnormal Lab Results - Last 24 Hours (Table) 04/06/18 04/06/18 04/07/18 Range/Units 17:11 20:24 07:05 POC Glucose (mg/dL) 201 H 116 H 119 H (75-99) mg/dL 04/07/18 Range/Units 11:36 POC Glucose (mg/dL) 124 H (75-99) mg/dL Assessment and Plan Assessment: #1. Acute exacerbation of chronic obstructive pulmonary disease with purulent tracheobronchitis, with failed outpatient treatment #2. Advanced severe COPD, GOLD stage IV, baseline FEV1 of 27% of predicted, chronic hypercapnic respiratory failure #3. Leukocytosis, possibly related to repeated rounds of steroids #4. History of nicotine dependence, currently in remission #5. Rheumatoid arthritis #6. Hypertension #7. Seasonal ALLERGIES #8. Depression #9. History of right colectomy in June 2017 for small bowel obstruction with subsequent wound dehiscence and reclosure #10. History of vulvar cancer with resection, hysterectomy Recommendation: Switch patient to oral prednisone, consider discharge planning in the next 24 hours. Time with Patient: Less than 30
[2018-04-07] MEDS: predniSONE 20 MG TAB PO SCH (16:50)
[2018-04-07 17:09] LABS: Glucose,Whole Blood 197 mg/dL (75-99)
[2018-04-07 20:58] LABS: Glucose,Whole Blood 153 mg/dL (75-99)
[2018-04-07] MEDS: diphenhydrAMINE 50 MG CAP PO SCH (21:07)
[2018-04-07] MEDS: MONTELUKAST 10 MG TAB PO SCH (21:07)
--- NOTE | 2018-04-07 23:58 | P.PN ---
Subjective Progress Note Date: 04/07/18 Principal diagnosis: Acute COPD exacerbation Patient is a 63-year-old female with known history of advanced COPD with FEV1 of 27% of predicted on home oxygen, her brother arthritis, history of open right colectomy on 07/13/2017 due to small bowel obstruction and subsequently developed facial lesions and required reclosure of her abdominal wall and other multiple medical problems came to ER with complaints of worsening shortness of breath congestion and wheezing. Patient has been having symptoms for the past 1 month and was treated with oral steroids and antibiotics and was sent home with antibiotics in the form of Levaquin recently. Symptoms have been progressively getting worse along with subjective fevers and chills. Patient came to ER for further evaluation Chest x-ray is negative for an acute process EKG showed normal sinus rhythm with frequent PVCs BNP 412 D-dimer negative 04/03/2018 Patient is still having shortness of breath but did improve clinically slightly. Still having diminished breath sounds bilaterally and slow to improve. Not to baseline yet. Otherwise patient is being continued on IV steroids. Patient did mention antibiotics. Pulmonary is following. Continue with the oxygen with another cannula. 04/04/2018 Patient did have some improvement in breathing but otherwise patient still having expiratory wheezing and tightness in the lungs. Saturating well on nasal cannula. Patient is being continued on steroids and breathing treatments. No complaints of chest pain. No nausea vomiting or abdominal pain. Pulmonary is following. 04/05/2018 Patient did have some improvement in breathing status otherwise patient is still wheezing. Not at baseline. Patient does have advanced COPD. 04/06/2018 Patient is able to sit on the bed today. Still having exertional short of breath with minimal walking. Patient does have diffuse wheezing. Continued on IV steroids and breathing treatments. Pulmonary is on board. 04/07/2018 Patient's breathing status is much improved today. Still having shortness of breath with walking. Otherwise wheezing improved as well. Continue on current management with IV steroids and breathing treatments and pulmonary is on board. Anticipate discharge next 24 hours with or clinical improvement. No chest pain. No nausea vomiting or abdominal pain. No headache or dizziness lightheadedness. No abdominal pain. All other review of systems negative except the above Current medications reviewed Objective - Vital Signs Vital signs: Vital Signs Temp 97.5 F L 04/07/18 05:40 Pulse 98 04/07/18 11:05 Resp 18 04/07/18 05:40 BP 123/95 04/07/18 05:40 Pulse Ox 94 L 04/07/18 05:40 Intake & Output 04/06/18 04/07/18 04/07/18 18:59 06:59 18:59 Intake Total 1300 Balance 1300 Intake: Oral 1300 Other: Voiding Method Toilet # Voids 3 2 - Exam PHYSICAL EXAMINATION: Patient is lying in the bed comfortably, no acute distress, awake alert and oriented.. HEENT: Normocephalic. Neck is supple. Pupils reactive. Nostrils clear. Oral cavity is moist. Ears reveal no drainage. Neck reveals no JVD, carotid bruits, or thyromegaly. CHEST EXAMINATION: Trachea is central. Symmetrical expansion. Bilateral diminished air entry with mild expiratory wheezing CARDIAC: Normal S1, S2 with no gallops. No murmurs ABDOMEN: Soft. Bowel sounds normal. No organomegaly. No abdominal bruits. Extremities: reveal no edema. No clubbing or cyanosis Neurologically awake, alert, oriented x3 with well-coordinated movements. No focal deficits noted Skin: No rash or skin lesions. Psychiatric: Coperative. Nonsuicidal Musculoskeletal: No joint swelling or deformity. Normal range of motion. - Labs CBC & Chem 7: 04/03/18 09:41 04/03/18 09:41 Labs: Abnormal Lab Results - Last 24 Hours (Table) 04/06/18 04/06/18 04/07/18 Range/Units 17:11 20:24 07:05 POC Glucose (mg/dL) 201 H 116 H 119 H (75-99) mg/dL 04/07/18 Range/Units 11:36 POC Glucose (mg/dL) 124 H (75-99) mg/dL Assessment and Plan Assessment: Acute COPD exacerbation and failed outpatient treatment Advanced COPD with FEV1 of 27% of predicted Leukocytosis due to recent steroid use Chronic hypercapnic and hypoxic respiratory failure. On home oxygen at 3 L Rheumatoid arthritis Hypertension Depression Seasonal ALLERGIES History of nicotine addiction. History of bowel obstruction status post right colectomy in June 2017 with subsequent wound dehiscence and reclosure History of vulvar cancer with resection and hysterectomy DVT prophylaxis Plan: Patient will be continued on IV steroids and DuoNeb's. Pulmicort and Perforomist was added. Continue with the Mucinex and home medications and follow closely. Further recommendations based on the clinical course. Pulmonary is on board. Prognosis is guarded with advanced COPD and multiple other medical problems and comorbid conditions.
[2018-04-08] MEDS: IPRATROPIUM-ALBUTEROL 3 ML NEB INHALATION PRN (02:59)
[2018-04-08] MEDS: IBUPROFEN 800 MG TAB PO PRN ×2 (03:25→12:10)
[2018-04-08] MEDS: IPRATROPIUM-ALBUTEROL 3 ML NEB INHALATION SCH ×4 (07:31→19:44)
[2018-04-08] MEDS: BUDESONIDE 1 MG/2 ML NEBU INHALATION SCH ×2 (07:31→19:42)
[2018-04-08] MEDS: FORMOTEROL FUMARATE 20 MCG/2 ML NEBU INHALATION SCH ×2 (07:31→19:42)
[2018-04-08 07:35] LABS: Glucose,Whole Blood 105 mg/dL (75-99)
[2018-04-08] MEDS: INSULIN ASPART 100 UNIT/ML 1 ML 10 ML VIAL SQ SCH ×4 (07:43→21:21)
[2018-04-08] MEDS: NYSTATIN 100,000 UNIT/ML SUSP 500,000 UNIT/5 ML CUP PO SCH ×4 (08:28→20:35)
[2018-04-08] MEDS: guaiFENesin 600 MG TABLET.ER PO SCH ×2 (08:29→20:35)
[2018-04-08] MEDS: predniSONE 20 MG TAB PO SCH (08:29)
[2018-04-08] MEDS: LISINOPRIL 20 MG TAB PO SCH (08:29)
[2018-04-08] MEDS: HYDROcodone/APAP 10-325MG 1 EACH TAB PO PRN ×2 (08:32→21:21)
[2018-04-08] MEDS ORDERED: ARTIFICIAL TEARS-HYPROMELLOSE DROPS 15 ML BTL BOTH EYES PRN (11:45)
[2018-04-08] MEDS: THIAMINE 100 MG TAB PO SCH ×2 (12:10→17:33)
[2018-04-08] MEDS: LORazepam 0.5 MG TAB PO PRN ×2 (12:11→20:34)
[2018-04-08] MEDS: methylPREDNISolone SOD SUCCI 125 MG/2 ML VIAL IV SCH ×2 (12:12→17:33)
[2018-04-08 12:33] LABS: Glucose,Whole Blood 163 mg/dL (75-99)
--- NOTE | 2018-04-08 13:11 | P.PN ---
Subjective Progress Note Date: 04/08/18 Principal diagnosis: Acute exacerbation of chronic obstructive pulmonary disease with purulent tracheobronchitis with failed outpatient treatment Estelle is a 63-year-old white female patient of Dr. Mijares who presented to the emergency department on 04/02/2018 at 03 38 with complaints of increasing dyspnea, chest congestion, wheezing, chest tightness. Patient has had ongoing symptoms since early in February, after she had traveled to [place] with a friend who had smoked in the car. Patient had also been out of for Perforomist and Pulmicort due to her loss of insurance. She was seen by Dr. Ohara in the pulmonary office on 03/15/2018 and again in 03/26/2018 in follow-up, she was treated with rounds of steroids, and antibiotics. During the last visit she was prescribed Levaquin 500 mg daily for 7 days, in addition to prednisone taper. However her symptoms became progressively worse despite the treatment, she was having subjective fever and chills at home, chest tightness, wheezing, chest congestion, productive cough and she presented to the emergency department for further evaluation and treatment. Chest x-ray completed in the emergency department on 04/02/2018 showed normal chest x-ray. EKG showed normal sinus rhythm with frequent PVCs. Blood work showed leukocytosis WBC of 17.8, sodium of 141, potassium is 4.1, chloride of 97, carbon dioxide of 32, BUN of 34, creatinine of 1.0, troponin and cardiac enzymes were negative 1, proBNP was within normal limits at 412. D-dimer was negative. Patient has a history of severe Gold stage IV chronic obstructive pulmonary disease with an underlying FEV1 value of 27% of predicted. Other history includes rheumatoid arthritis, pneumonia, hypertension, gout, colitis, cancer of the vulva with surgical resection, depression, patient is an ex-smoker. Patient underwent an open right colectomy on 07/13/2017 for a small bowel obstruction by Dr. Burger, she had subsequently developed a fascial dehiscence and required reclosure of her abdominal wall. We are seeing the patient today in consultation for an acute COPD exacerbation with failed outpatient treatment. On 04/03/2018 patient seen in follow-up on medical surgical floor. She reports slight improvement with breathing, sounds still remain very diminished, tight and wheezy slightly better air movement noted bilaterally. Afebrile, signs are stable, as a stable, she is on room air with O2 sat at 94%, continue current medical treatment, continue same dose steroids, empiric antibiotics, belies treatments, his labs have been reviewed, no new chest x-rays. Not back to her baseline yet, but improving. On 04/04/2018 patient seen in follow-up on medical surgical floor. She reports limited improvement in her breathing, patient remains very dyspneic with any exertion, there are end-expiratory wheezes bilaterally. She is not able to bring up any phlegm. Room air oxygen is 93%, she is afebrile, she has been treated with high-dose steroids, and patient does not think she has made much improvement. She is requesting to have a bronchoscopy with therapeutic BAL. Patient is making slow improvement, and we will continue with current medical treatment for now, unless there is deterioration in her status. In view of her very poor lung function, the risk of bronchoscopy would outweigh any potential benefit. This was explained to the patient, and the potential of the patient ending up on a mechanical ventilator in view of her poor lung function. Patient agreed to continue with current medical treatment as long as there is improvement. On 04/05/2018 patient seen in follow-up. Continues to slowly improve, lung sounds are positive for diffuse wheezes, she denies worsening dyspnea. Room air pulse ox is 93%, vital signs are stable, still not able to bring up any sputum. Continues is on IV Solu-Medrol, nebulized bronchodilators. She tolerates ambulation, no acute events overnight. On 04/08/2018 patient seen again in medical surgical floor. She states she has made very limited improvement since admission, continues to complain of wheezing , and dyspnea. Not able to bring up any phlegm. She is insisting on proceeding with bronchoscopy, despite the fact that she has a very poor lung function, and bronchoscopy with BAL very risky procedure for her, that could potentially lead to patient ending up on mechanical ventilator, or even result in patient's . Physical exam reveals diminished breath sounds bilaterally , with expiratory wheezes, room air pulse ox is 95%, patient does wear oxygen intermittently, she is afebrile, vital signs are stable. Patient is on empiric antibiotics in the form of Zithromax, she is on oral prednisone, nebulized bronchodilators. The risks of the bronchoscopy were again discussed with the patient, including the risk of breast or failure requiring mechanical ventilation, and possible , and the patient is requesting to proceed with the procedure. We will continue with current medical treatment, we will tentatively schedule patient's bronchoscopy for Sunday Objective - Vital Signs Vital signs: Vital Signs Temp 98.1 F 04/08/18 07:00 Pulse 96 04/08/18 11:44 Resp 20 04/08/18 07:00 BP 165/77 04/08/18 07:00 Pulse Ox 93 L 04/08/18 07:32 Intake & Output 04/07/18 04/08/18 04/08/18 18:59 06:59 18:59 Intake Total 400 200 Balance 400 200 Intake: Oral 400 200 Other: Voiding Method Toilet Toilet # Voids 3 2 - Exam GENERAL EXAM: Alert, pleasant, 63-year-old white female comfortable in no apparent distress. HEAD: Normocephalic/atraumatic. EYES: Normal reaction of pupils, equal size. Conjunctiva pink, sclera white. NOSE: Clear with pink turbinates. THROAT: No erythema or exudates. NECK: No masses, no JVD, no thyroid enlargement, no adenopathy. CHEST: No chest wall deformity. Symmetrical expansion. LUNGS: Diminished lung sounds bilaterally, with diffuse wheezes. CVS: Regular rate and rhythm, normal S1 and S2, no gallops, no murmurs, no rubs ABDOMEN: Soft, nontender. No hepatosplenomegaly, normal bowel sounds, no guarding or rigidity. EXTREMITIES: No clubbing, no edema, no cyanosis, 2+ pulses and upper and lower extremities. MUSCULOSKELETAL: Muscle strength and tone normal. SPINE: No scoliosis or deformity SKIN: No rashes CENTRAL NERVOUS SYSTEM: Alert and oriented -3. No focal deficits, tone is normal in all 4 extremities. PSYCHIATRIC: Alert and oriented -3. Appropriate affect. Intact judgment and insight. - Labs CBC & Chem 7: 04/03/18 09:41 04/03/18 09:41 Labs: Abnormal Lab Results - Last 24 Hours (Table) 04/07/18 04/07/18 04/08/18 Range/Units 16:56 20:49 07:26 POC Glucose (mg/dL) 197 H 153 H 105 H (75-99) mg/dL 04/08/18 Range/Units 12:25 POC Glucose (mg/dL) 163 H (75-99) mg/dL Assessment and Plan Plan: Assessment: #1. Acute exacerbation of chronic obstructive pulmonary disease with purulent tracheobronchitis, with failed outpatient treatment #2. Advanced severe COPD, GOLD stage IV, baseline FEV1 of 27% of predicted, chronic hypercapnic respiratory failure #3. Leukocytosis, possibly related to repeated rounds of steroids #4. History of nicotine dependence, currently in remission #5. Rheumatoid arthritis #6. Hypertension #7. Seasonal ALLERGIES #8. Depression #9. History of right colectomy in June 2017 for small bowel obstruction with subsequent wound dehiscence and reclosure #10. History of vulvar cancer with resection, hysterectomy Plan: We'll switch to oral prednisone to IV Solu-Medrol 60 mg every 6 hours, continue Zithromax, continue nebulized bronchodilators, Pulmicort and Perforomist. Feels that she has made modest improvement since her admission and is requesting a bronchoscopy with BAL. The risks of the procedure were discussed with the patient, including that of respiratory failure and potential . We 'll give the patient another 48 hours of inpatient treatment, and if no improvement we will proceed with bronchoscopy on Sunday at 11:00. Patient is in agreement. I performed a history & physical examination of the patient and discussed their management with my nurse practitioner, Savanah Mart. I reviewed the nurse practitioner's note and agree with the documented findings and plan of care. Lung sounds are positive for diffuse wheezes. The findings and the impression was discussed with the patient. I attest to the documentation by the nurse practitioner. Time with Patient: Less than 30
[2018-04-08] MEDS: AZITHROMYCIN 500 MG TAB PO SCH (13:45)
[2018-04-08 17:01] LABS: Glucose,Whole Blood 188 mg/dL (75-99)
[2018-04-08] MEDS: FUROSEMIDE 40 MG TAB PO PRN (17:31)
[2018-04-08] MEDS: MONTELUKAST 10 MG TAB PO SCH (20:34)
[2018-04-08] MEDS: diphenhydrAMINE 50 MG CAP PO SCH (20:34)
[2018-04-08 20:53] LABS: Glucose,Whole Blood 166 mg/dL (75-99)
--- NOTE | 2018-04-09 00:55 | P.PN ---
Subjective Progress Note Date: 04/08/18 Principal diagnosis: Acute COPD exacerbation Patient is a 63-year-old female with known history of advanced COPD with FEV1 of 27% of predicted on home oxygen, her brother arthritis, history of open right colectomy on 07/13/2017 due to small bowel obstruction and subsequently developed facial lesions and required reclosure of her abdominal wall and other multiple medical problems came to ER with complaints of worsening shortness of breath congestion and wheezing. Patient has been having symptoms for the past 1 month and was treated with oral steroids and antibiotics and was sent home with antibiotics in the form of Levaquin recently. Symptoms have been progressively getting worse along with subjective fevers and chills. Patient came to ER for further evaluation Chest x-ray is negative for an acute process EKG showed normal sinus rhythm with frequent PVCs BNP 412 D-dimer negative 04/03/2018 Patient is still having shortness of breath but did improve clinically slightly. Still having diminished breath sounds bilaterally and slow to improve. Not to baseline yet. Otherwise patient is being continued on IV steroids. Patient did mention antibiotics. Pulmonary is following. Continue with the oxygen with another cannula. 04/04/2018 Patient did have some improvement in breathing but otherwise patient still having expiratory wheezing and tightness in the lungs. Saturating well on nasal cannula. Patient is being continued on steroids and breathing treatments. No complaints of chest pain. No nausea vomiting or abdominal pain. Pulmonary is following. 04/05/2018 Patient did have some improvement in breathing status otherwise patient is still wheezing. Not at baseline. Patient does have advanced COPD. 04/06/2018 Patient is able to sit on the bed today. Still having exertional short of breath with minimal walking. Patient does have diffuse wheezing. Continued on IV steroids and breathing treatments. Pulmonary is on board. 04/07/2018 Patient's breathing status is much improved today. Still having shortness of breath with walking. Otherwise wheezing improved as well. Continue on current management with IV steroids and breathing treatments and pulmonary is on board. Anticipate discharge next 24 hours with or clinical improvement. 04/08/2012 and Patient became more short of breath today. Otherwise patient is being continued on IV steroids and breathing treatments and pulmonary is planning for bronchoscopy. No chest pain. No nausea vomiting or abdominal pain. No headache or dizziness lightheadedness. No abdominal pain. All other review of systems negative except the above Current medications reviewed Active Medications Generic Name Dose Route Start Last Admin Trade Name Freq PRN Reason Stop Dose Admin Acetaminophen 650 mg 04/04/18 03:50 04/04/18 04:08 Tylenol Tab PO 650 mg Q6HR PRN Administration Fever and/ or Pain Hydrocodone Bitart/Acetaminophen 1 each 04/02/18 05:59 04/08/18 21:21 [place] 10 PO 1 each TID PRN Administration Moderate to Severe Pain Albuterol/Ipratropium 3 ml 04/02/18 05:56 04/08/18 02:59 Duoneb 0.5 Mg-3 Mg/3 Ml Soln INHALATION 3 ml RT-Q4H PRN Administration Shortness Of Breath Or Wheezing Albuterol/Ipratropium 3 ml 04/02/18 12:00 04/08/18 19:44 Duoneb 0.5 Mg-3 Mg/3 Ml Soln INHALATION 3 ml RT-QID LATESHA Administration Artificial Tears 1 drops 04/08/18 11:45 04/08/18 13:45 Artificial Tear Drops BOTH EYES 1 drops TID PRN Administration Dry Eye(s) Azithromycin 500 mg 04/05/18 15:00 04/08/18 13:45 Zithromax PO 04/09/18 15:01 500 mg DAILY@1500 LATESHA Administration Budesonide 1 mg 04/02/18 20:00 04/08/18 19:42 Pulmicort INHALATION 1 mg RT-BID LATESHA Administration Diphenhydramine HCl 50 mg 04/02/18 21:00 04/08/18 20:34 Benadryl PO 50 mg HS LATESHA Administration Formoterol Fumarate 20 mcg 04/02/18 20:00 04/08/18 19:42 Perforomist INHALATION 20 mcg RT-BID LATESHA Administration Furosemide 40 mg 04/02/18 05:59 04/08/18 17:31 Lasix PO 40 mg DAILY PRN Administration Edema Guaifenesin 600 mg 04/02/18 09:00 04/08/18 20:35 Mucinex PO 600 mg Q12HR LATESHA Administration Ibuprofen 800 mg 04/02/18 05:59 04/08/18 12:10 Motrin PO 800 mg Q8H PRN Administration Pain Insulin Aspart 0 unit 04/02/18 12:30 04/08/18 21:21 Novolog SQ 3 unit ACHS LATESHA Administration Protocol Lisinopril 20 mg 04/02/18 09:00 04/08/18 08:29 Zestril PO 20 mg QAM LATESHA Administration Lorazepam 0.5 mg 04/08/18 11:45 04/08/18 20:34 Ativan PO 0.5 mg BID PRN Administration Anxiety Methylprednisolone Sodium Succinate 60 mg 04/08/18 12:00 04/08/18 17:33 Solu-Medrol IV 60 mg Q6HR LATESHA Administration Montelukast Sodium 10 mg 04/02/18 21:00 04/08/18 20:34 Singulair PO 10 mg HS LATESHA Administration Nystatin 500,000 unit 04/03/18 09:30 04/08/18 20:35 Mycostatin Oral Susp PO 500,000 unit QID LATESHA Administration Thiamine HCl 100 mg 04/02/18 12:00 04/08/18 17:33 Vitamin B-1 PO 100 mg BID@1200,1700 LATESHA Administration Objective - Vital Signs Vital signs: Vital Signs Temp 98.6 F 04/08/18 14:44 Pulse 112 H 04/08/18 20:05 Resp 20 04/08/18 16:15 BP 153/79 04/08/18 14:44 Pulse Ox 95 04/08/18 14:44 Intake & Output 04/08/18 04/08/18 04/09/18 06:59 18:59 06:59 Intake Total 400 400 Output Total 1 Balance 400 399 Weight 72 kg Intake: Oral 400 400 Output: Urine 1 Other: Voiding Method Toilet Toilet # Voids 2 2 - Exam PHYSICAL EXAMINATION: Patient is lying in the bed comfortably, no acute distress, awake alert and oriented.. HEENT: Normocephalic. Neck is supple. Pupils reactive. Nostrils clear. Oral cavity is moist. Ears reveal no drainage. Neck reveals no JVD, carotid bruits, or thyromegaly. CHEST EXAMINATION: Trachea is central. Symmetrical expansion. Bilateral diminished air entry and diffuse wheezing CARDIAC: Normal S1, S2 with no gallops. No murmurs ABDOMEN: Soft. Bowel sounds normal. No organomegaly. No abdominal bruits. Extremities: reveal no edema. No clubbing or cyanosis Neurologically awake, alert, oriented x3 with well-coordinated movements. No focal deficits noted Skin: No rash or skin lesions. Psychiatric: Coperative. Nonsuicidal Musculoskeletal: No joint swelling or deformity. Normal range of motion. - Labs CBC & Chem 7: 04/03/18 09:41 04/03/18 09:41 Labs: Abnormal Lab Results - Last 24 Hours (Table) 04/07/18 04/08/18 04/08/18 Range/Units 20:49 07:26 12:25 POC Glucose (mg/dL) 153 H 105 H 163 H (75-99) mg/dL 04/08/18 Range/Units 16:59 POC Glucose (mg/dL) 188 H (75-99) mg/dL Assessment and Plan Assessment: Acute COPD exacerbation and failed outpatient treatment Advanced COPD with FEV1 of 27% of predicted Leukocytosis due to recent steroid use Chronic hypercapnic and hypoxic respiratory failure. On home oxygen at 3 L Rheumatoid arthritis Hypertension Depression Seasonal ALLERGIES History of nicotine addiction. History of bowel obstruction status post right colectomy in June 2017 with subsequent wound dehiscence and reclosure History of vulvar cancer with resection and hysterectomy DVT prophylaxis Plan: Patient will be continued on IV steroids and DuoNeb's. Pulmicort and Perforomist was added. Continue with the Mucinex and home medications and follow closely. Patient continues to wheeze. Further recommendations based on the clinical course. Pulmonary is on board. Prognosis is guarded with advanced COPD and multiple other medical problems and comorbid conditions. Time with Patient: Greater than 30
[2018-04-09] MEDS: methylPREDNISolone SOD SUCCI 125 MG/2 ML VIAL IV SCH ×5 (01:47→23:14)
[2018-04-09] MEDS: IBUPROFEN 800 MG TAB PO PRN ×3 (02:53→22:01)
[2018-04-09] MEDS: IPRATROPIUM-ALBUTEROL 3 ML NEB INHALATION PRN (05:12)
[2018-04-09] MEDS: IPRATROPIUM-ALBUTEROL 3 ML NEB INHALATION SCH ×4 (07:09→19:12)
[2018-04-09] MEDS: FORMOTEROL FUMARATE 20 MCG/2 ML NEBU INHALATION SCH ×2 (07:09→19:12)
[2018-04-09] MEDS: BUDESONIDE 1 MG/2 ML NEBU INHALATION SCH ×2 (07:09→19:12)
[2018-04-09 07:12] LABS: Glucose,Whole Blood 131 mg/dL (75-99)
[2018-04-09] MEDS: guaiFENesin 600 MG TABLET.ER PO SCH ×2 (07:58→20:38)
[2018-04-09] MEDS: NYSTATIN 100,000 UNIT/ML SUSP 500,000 UNIT/5 ML CUP PO SCH ×4 (07:58→20:38)
[2018-04-09] MEDS: INSULIN ASPART 100 UNIT/ML 1 ML 10 ML VIAL SQ SCH ×4 (07:58→21:31)
[2018-04-09] MEDS: LISINOPRIL 20 MG TAB PO SCH (07:59)
[2018-04-09] MEDS: LORazepam 0.5 MG TAB PO PRN ×2 (11:18→21:59)
[2018-04-09] MEDS: THIAMINE 100 MG TAB PO SCH ×2 (11:22→18:05)
[2018-04-09] MEDS: FUROSEMIDE 40 MG TAB PO PRN (11:22)
[2018-04-09 12:10] LABS: Glucose,Whole Blood 146 mg/dL (75-99)
--- NOTE | 2018-04-09 12:30 | P.PN ---
Subjective Progress Note Date: 04/09/18 Principal diagnosis: Acute exacerbation of chronic obstructive pulmonary disease with purulent tracheobronchitis with failed outpatient treatment Estelle is a 63-year-old white female patient of Dr. Mijares who presented to the emergency department on 04/02/2018 at 03 38 with complaints of increasing dyspnea, chest congestion, wheezing, chest tightness. Patient has had ongoing symptoms since early in February, after she had traveled to [place] with a friend who had smoked in the car. Patient had also been out of for Perforomist and Pulmicort due to her loss of insurance. She was seen by Dr. Ohara in the pulmonary office on 03/15/2018 and again in 03/26/2018 in follow-up, she was treated with rounds of steroids, and antibiotics. During the last visit she was prescribed Levaquin 500 mg daily for 7 days, in addition to prednisone taper. However her symptoms became progressively worse despite the treatment, she was having subjective fever and chills at home, chest tightness, wheezing, chest congestion, productive cough and she presented to the emergency department for further evaluation and treatment. Chest x-ray completed in the emergency department on 04/02/2018 showed normal chest x-ray. EKG showed normal sinus rhythm with frequent PVCs. Blood work showed leukocytosis WBC of 17.8, sodium of 141, potassium is 4.1, chloride of 97, carbon dioxide of 32, BUN of 34, creatinine of 1.0, troponin and cardiac enzymes were negative 1, proBNP was within normal limits at 412. D-dimer was negative. Patient has a history of severe Gold stage IV chronic obstructive pulmonary disease with an underlying FEV1 value of 27% of predicted. Other history includes rheumatoid arthritis, pneumonia, hypertension, gout, colitis, cancer of the vulva with surgical resection, depression, patient is an ex-smoker. Patient underwent an open right colectomy on 07/13/2017 for a small bowel obstruction by Dr. Burger, she had subsequently developed a fascial dehiscence and required reclosure of her abdominal wall. We are seeing the patient today in consultation for an acute COPD exacerbation with failed outpatient treatment. On 04/03/2018 patient seen in follow-up on medical surgical floor. She reports slight improvement with breathing, sounds still remain very diminished, tight and wheezy slightly better air movement noted bilaterally. Afebrile, signs are stable, as a stable, she is on room air with O2 sat at 94%, continue current medical treatment, continue same dose steroids, empiric antibiotics, belies treatments, his labs have been reviewed, no new chest x-rays. Not back to her baseline yet, but improving. On 04/04/2018 patient seen in follow-up on medical surgical floor. She reports limited improvement in her breathing, patient remains very dyspneic with any exertion, there are end-expiratory wheezes bilaterally. She is not able to bring up any phlegm. Room air oxygen is 93%, she is afebrile, she has been treated with high-dose steroids, and patient does not think she has made much improvement. She is requesting to have a bronchoscopy with therapeutic BAL. Patient is making slow improvement, and we will continue with current medical treatment for now, unless there is deterioration in her status. In view of her very poor lung function, the risk of bronchoscopy would outweigh any potential benefit. This was explained to the patient, and the potential of the patient ending up on a mechanical ventilator in view of her poor lung function. Patient agreed to continue with current medical treatment as long as there is improvement. On 04/05/2018 patient seen in follow-up. Continues to slowly improve, lung sounds are positive for diffuse wheezes, she denies worsening dyspnea. Room air pulse ox is 93%, vital signs are stable, still not able to bring up any sputum. Continues is on IV Solu-Medrol, nebulized bronchodilators. She tolerates ambulation, no acute events overnight. On 04/08/2018 patient seen again in medical surgical floor. She states she has made very limited improvement since admission, continues to complain of wheezing , and dyspnea. Not able to bring up any phlegm. She is insisting on proceeding with bronchoscopy, despite the fact that she has a very poor lung function, and bronchoscopy with BAL very risky procedure for her, that could potentially lead to patient ending up on mechanical ventilator, or even result in patient's . Physical exam reveals diminished breath sounds bilaterally , with expiratory wheezes, room air pulse ox is 95%, patient does wear oxygen intermittently, she is afebrile, vital signs are stable. Patient is on empiric antibiotics in the form of Zithromax, she is on oral prednisone, nebulized bronchodilators. The risks of the bronchoscopy were again discussed with the patient, including the risk of breast or failure requiring mechanical ventilation, and possible , and the patient is requesting to proceed with the procedure. We will continue with current medical treatment, we will tentatively schedule patient's bronchoscopy for Sunday On 04/09/2018 patient seen again in follow-up on medical surgical floor. Lung sounds remain diminished, with end expiratory wheezing, patient still is not able to cough up, but the cough is dry, and not particularly congested. Patient still wants to proceed with bronchoscopy tomorrow on with 04/10/2018, in the meanwhile will continue with current medical treatment, IV steroids, Zithromax, and nebulized bronchodilators. The patient was again reminded that the bronchoscopy is risky in view of her poor lung function, the patient is aware, and would like to proceed Objective - Vital Signs Vital signs: Vital Signs Temp 97.0 F L 04/09/18 05:57 Pulse 104 H 04/09/18 11:31 Resp 18 04/09/18 05:57 BP 150/78 04/09/18 05:57 Pulse Ox 94 L 04/08/18 22:42 Intake & Output 04/08/18 04/09/18 04/09/18 18:59 06:59 18:59 Intake Total 400 400 Output Total 1 Balance 399 400 Weight 72 kg 72 kg Intake: Oral 400 400 Output: Urine 1 Other: Voiding Method Toilet # Voids 2 2 # Bowel Movements 1 - Exam GENERAL EXAM: Alert, pleasant, 63-year-old white female comfortable in no apparent distress. HEAD: Normocephalic/atraumatic. EYES: Normal reaction of pupils, equal size. Conjunctiva pink, sclera white. NOSE: Clear with pink turbinates. THROAT: No erythema or exudates. NECK: No masses, no JVD, no thyroid enlargement, no adenopathy. CHEST: No chest wall deformity. Symmetrical expansion. LUNGS: Diminished lung sounds bilaterally, with diffuse wheezes. CVS: Regular rate and rhythm, normal S1 and S2, no gallops, no murmurs, no rubs ABDOMEN: Soft, nontender. No hepatosplenomegaly, normal bowel sounds, no guarding or rigidity. EXTREMITIES: No clubbing, no edema, no cyanosis, 2+ pulses and upper and lower extremities. MUSCULOSKELETAL: Muscle strength and tone normal. SPINE: No scoliosis or deformity SKIN: No rashes CENTRAL NERVOUS SYSTEM: Alert and oriented -3. No focal deficits, tone is normal in all 4 extremities. PSYCHIATRIC: Alert and oriented -3. Appropriate affect. Intact judgment and insight. - Labs CBC & Chem 7: 04/03/18 09:41 04/03/18 09:41 Labs: Abnormal Lab Results - Last 24 Hours (Table) 04/08/18 04/08/18 04/08/18 Range/Units 12:25 16:59 20:46 POC Glucose (mg/dL) 163 H 188 H 166 H (75-99) mg/dL 04/09/18 04/09/18 Range/Units 07:09 11:31 POC Glucose (mg/dL) 131 H 146 H (75-99) mg/dL Assessment and Plan Plan: Assessment: #1. Acute exacerbation of chronic obstructive pulmonary disease with purulent tracheobronchitis, with failed outpatient treatment #2. Advanced severe COPD, GOLD stage IV, baseline FEV1 of 27% of predicted, chronic hypercapnic respiratory failure #3. Leukocytosis, possibly related to repeated rounds of steroids #4. History of nicotine dependence, currently in remission #5. Rheumatoid arthritis #6. Hypertension #7. Seasonal ALLERGIES #8. Depression #9. History of right colectomy in June 2017 for small bowel obstruction with subsequent wound dehiscence and reclosure #10. History of vulvar cancer with resection, hysterectomy Plan: Continue current antibiotic coverage, continue IV Solu-Medrol, continue nebulized bronchodilators. We'll proceed with bronchoscopy with BAL tomorrow on 04/10/2018 Dr. Cade. The patient is aware that the procedure is risky in view of her poor lung function, and would like to proceed. I performed a history & physical examination of the patient and discussed their management with my nurse practitioner, Savanah Mart. I reviewed the nurse practitioner's note and agree with the documented findings and plan of care. Lung sounds are positive for diffuse wheezes. The findings and the impression was discussed with the patient. I attest to the documentation by the nurse practitioner. Time with Patient: Less than 30
[2018-04-09] MEDS: AZITHROMYCIN 500 MG TAB PO SCH (15:50)
--- NOTE | 2018-04-09 16:24 | P.PN ---
Subjective Progress Note Date: 04/09/18 progress note being dictated for Dr. Canela Interval history: Acute COPD exacerbation Patient is a 63-year-old female with known history of advanced COPD with FEV1 of 27% of predicted on home oxygen, her brother arthritis, history of open right colectomy on 07/13/2017 due to small bowel obstruction and subsequently developed facial lesions and required reclosure of her abdominal wall and other multiple medical problems came to ER with complaints of worsening shortness of breath congestion and wheezing. Patient has been having symptoms for the past 1 month and was treated with oral steroids and antibiotics and was sent home with antibiotics in the form of Levaquin recently. Symptoms have been progressively getting worse along with subjective fevers and chills. Patient came to ER for further evaluation Chest x-ray is negative for an acute process EKG showed normal sinus rhythm with frequent PVCs BNP 412 D-dimer negative 04/03/2018 Patient is still having shortness of breath but did improve clinically slightly. Still having diminished breath sounds bilaterally and slow to improve. Not to baseline yet. Otherwise patient is being continued on IV steroids. Patient did mention antibiotics. Pulmonary is following. Continue with the oxygen with another cannula. 04/04/2018 Patient did have some improvement in breathing but otherwise patient still having expiratory wheezing and tightness in the lungs. Saturating well on nasal cannula. Patient is being continued on steroids and breathing treatments. No complaints of chest pain. No nausea vomiting or abdominal pain. Pulmonary is following. 04/05/2018 Patient did have some improvement in breathing status otherwise patient is still wheezing. Not at baseline. Patient does have advanced COPD. 04/06/2018 Patient is able to sit on the bed today. Still having exertional short of breath with minimal walking. Patient does have diffuse wheezing. Continued on IV steroids and breathing treatments. Pulmonary is on board. 04/07/2018 Patient's breathing status is much improved today. Still having shortness of breath with walking. Otherwise wheezing improved as well. Continue on current management with IV steroids and breathing treatments and pulmonary is on board. Anticipate discharge next 24 hours with or clinical improvement. 04/08/2012 and Patient became more short of breath today. Otherwise patient is being continued on IV steroids and breathing treatments and pulmonary is planning for bronchoscopy. No chest pain. No nausea vomiting or abdominal pain. No headache or dizziness lightheadedness. No abdominal pain. All other review of systems negative except the above Active Medications Generic Name Dose Route Start Last Admin Trade Name Freq PRN Reason Stop Dose Admin Acetaminophen 650 mg 04/04/18 03:50 04/04/18 04:08 Tylenol Tab PO 650 mg Q6HR PRN Administration Fever and/ or Pain Hydrocodone Bitart/Acetaminophen 1 each 04/02/18 05:59 04/08/18 21:21 Shorter 10 PO 1 each TID PRN Administration Moderate to Severe Pain Albuterol/Ipratropium 3 ml 04/02/18 05:56 04/08/18 02:59 Duoneb 0.5 Mg-3 Mg/3 Ml Soln INHALATION 3 ml RT-Q4H PRN Administration Shortness Of Breath Or Wheezing Albuterol/Ipratropium 3 ml 04/02/18 12:00 04/08/18 19:44 Duoneb 0.5 Mg-3 Mg/3 Ml Soln INHALATION 3 ml RT-QID LATESHA Administration Artificial Tears 1 drops 04/08/18 11:45 04/08/18 13:45 Artificial Tear Drops BOTH EYES 1 drops TID PRN Administration Dry Eye(s) Azithromycin 500 mg 04/05/18 15:00 04/08/18 13:45 Zithromax PO 04/09/18 15:01 500 mg DAILY@1500 LATESHA Administration Budesonide 1 mg 04/02/18 20:00 04/08/18 19:42 Pulmicort INHALATION 1 mg RT-BID LATESHA Administration Diphenhydramine HCl 50 mg 04/02/18 21:00 04/08/18 20:34 Benadryl PO 50 mg HS LATESHA Administration Formoterol Fumarate 20 mcg 04/02/18 20:00 04/08/18 19:42 Perforomist INHALATION 20 mcg RT-BID LATESHA Administration Furosemide 40 mg 04/02/18 05:59 04/08/18 17:31 Lasix PO 40 mg DAILY PRN Administration Edema Guaifenesin 600 mg 04/02/18 09:00 04/08/18 20:35 Mucinex PO 600 mg Q12HR LATESHA Administration Ibuprofen 800 mg 04/02/18 05:59 04/08/18 12:10 Motrin PO 800 mg Q8H PRN Administration Pain Insulin Aspart 0 unit 04/02/18 12:30 04/08/18 21:21 Novolog SQ 3 unit ACHS LATESHA Administration Protocol Lisinopril 20 mg 04/02/18 09:00 04/08/18 08:29 Zestril PO 20 mg QAM LATESHA Administration Lorazepam 0.5 mg 04/08/18 11:45 04/08/18 20:34 Ativan PO 0.5 mg BID PRN Administration Anxiety Methylprednisolone Sodium Succinate 60 mg 04/08/18 12:00 04/08/18 17:33 Solu-Medrol IV 60 mg Q6HR LATESHA Administration Montelukast Sodium 10 mg 04/02/18 21:00 04/08/18 20:34 Singulair PO 10 mg HS LATESHA Administration Nystatin 500,000 unit 04/03/18 09:30 04/08/18 20:35 Mycostatin Oral Susp PO 500,000 unit QID LATESHA Administration Thiamine HCl 100 mg 04/02/18 12:00 04/08/18 17:33 Vitamin B-1 PO 100 mg BID@1200,1700 LATESHA Administration 04/09/2018 slow Improvement,NPC. Scheduled for bronchoscopy with pulmonary tomorrow. Objective - Vital Signs Vital signs: Vital Signs Temp 98.3 F 04/09/18 14:18 Pulse 118 H 04/09/18 15:27 Resp 18 04/09/18 15:27 BP 141/62 04/09/18 14:18 Pulse Ox 98 04/09/18 15:17 Intake & Output 04/08/18 04/09/18 04/09/18 18:59 06:59 18:59 Intake Total 400 400 Output Total 1 Balance 399 400 Weight 72 kg 72 kg Intake: Oral 400 400 Output: Urine 1 Other: Voiding Method Toilet # Voids 2 2 4 # Bowel Movements 1 1 - Exam PHYSICAL EXAMINATION: Patient is lying in the bed comfortably, no acute distress, awake alert and oriented.. HEENT: Normocephalic. Neck is supple. Pupils reactive. Nostrils clear. Oral cavity is moist. Ears reveal no drainage. Neck reveals no JVD, carotid bruits, or thyromegaly. CHEST EXAMINATION: Trachea is central. Symmetrical expansion. Bilateral diminished air entry and diffuse expiratory wheezing CARDIAC: Normal S1, S2 with no gallops. No murmurs ABDOMEN: Soft. Bowel sounds normal. No organomegaly. No abdominal bruits. Extremities: reveal no edema. No clubbing or cyanosis Neurologically awake, alert, oriented x3 with well-coordinated movements. No focal deficits noted Skin: No rash or skin lesions. Psychiatric: Coperative. Nonsuicidal Musculoskeletal: No joint swelling or deformity. Normal range of motion. - Labs CBC & Chem 7: 04/03/18 09:41 04/03/18 09:41 Labs: Abnormal Lab Results - Last 24 Hours (Table) 04/08/18 04/08/18 04/09/18 Range/Units 16:59 20:46 07:09 POC Glucose (mg/dL) 188 H 166 H 131 H (75-99) mg/dL 04/09/18 Range/Units 11:31 POC Glucose (mg/dL) 146 H (75-99) mg/dL Assessment and Plan Assessment: Acute COPD exacerbation and failed outpatient treatment Advanced COPD with FEV1 of 27% of predicted Leukocytosis due to recent steroid use Chronic hypercapnic and hypoxic respiratory failure. On home oxygen at 3 L Rheumatoid arthritis Hypertension Depression Seasonal ALLERGIES History of nicotine addiction. History of bowel obstruction status post right colectomy in June 2017 with subsequent wound dehiscence and reclosure History of vulvar cancer with resection and hysterectomy DVT prophylaxis Plan:continuing current medication regime ,monitoring and symptomatic treatment.Continue on IV steroids and DuoNeb's, Pulmicort and Perforomist.follow closely with pulmonary; bronchoscopy scheduled for tomorrow. Prognosis guarded given multiple complex medical issues. The impression and plan of care has been dictated as directed. : I performed a history and examination of this patient, discussed the same with the dictator. I agree with the dictator's note ,documented as a scribe. Any additional findings or plans will be noted.
[2018-04-09 16:57] LABS: Glucose,Whole Blood 254 mg/dL (75-99)
[2018-04-09 20:17] LABS: Glucose,Whole Blood 126 mg/dL (75-99)
[2018-04-09] MEDS: diphenhydrAMINE 50 MG CAP PO SCH (20:38)
[2018-04-09] MEDS: MONTELUKAST 10 MG TAB PO SCH (20:38)
[2018-04-09] MEDS: HYDROcodone/APAP 10-325MG 1 EACH TAB PO PRN (20:41)
[2018-04-09] MEDS ORDERED: MIDAZOLAM 2 MG/2 ML VIAL IV PRN (21:35)
[2018-04-09] MEDS: ACETAMINOPHEN TAB 325 MG TAB PO PRN (23:34)
[2018-04-10] MEDS: HYDROcodone/APAP 10-325MG 1 EACH TAB PO PRN ×2 (03:28→20:21)
[2018-04-10] MEDS: LACTATED RINGERS 1,000 ML IV SCH (03:44)
[2018-04-10] MEDS: methylPREDNISolone SOD SUCCI 125 MG/2 ML VIAL IV SCH ×3 (06:11→17:27)
[2018-04-10] MEDS: IBUPROFEN 800 MG TAB PO PRN ×2 (06:15→17:32)
[2018-04-10 07:07] LABS: Glucose,Whole Blood 131 mg/dL (75-99)
[2018-04-10] MEDS: INSULIN ASPART 100 UNIT/ML 1 ML 10 ML VIAL SQ SCH ×4 (07:29→21:02)
[2018-04-10] MEDS: FORMOTEROL FUMARATE 20 MCG/2 ML NEBU INHALATION SCH ×2 (07:45→19:23)
[2018-04-10] MEDS: BUDESONIDE 1 MG/2 ML NEBU INHALATION SCH ×2 (07:45→19:23)
[2018-04-10] MEDS: IPRATROPIUM-ALBUTEROL 3 ML NEB INHALATION SCH ×4 (07:45→19:23)
[2018-04-10] MEDS: guaiFENesin 600 MG TABLET.ER PO SCH ×2 (07:47→20:21)
[2018-04-10] MEDS: NYSTATIN 100,000 UNIT/ML SUSP 500,000 UNIT/5 ML CUP PO SCH ×4 (07:47→21:02)
[2018-04-10] MEDS: LORazepam 0.5 MG TAB PO PRN ×2 (07:47→15:52)
[2018-04-10] MEDS: LISINOPRIL 20 MG TAB PO SCH (07:47)
--- NOTE | 2018-04-10 11:39 | P.PN ---
Subjective Progress Note Date: 04/10/18 Principal diagnosis: Acute exacerbation of chronic obstructive pulmonary disease with purulent tracheobronchitis with failed outpatient treatment Estelle is a 63-year-old white female patient of Dr. Mijares who presented to the emergency department on 04/02/2018 at 03 38 with complaints of increasing dyspnea, chest congestion, wheezing, chest tightness. Patient has had ongoing symptoms since early in February, after she had traveled to [place] with a friend who had smoked in the car. Patient had also been out of for Perforomist and Pulmicort due to her loss of insurance. She was seen by Dr. Ohara in the pulmonary office on 03/15/2018 and again in 03/26/2018 in follow-up, she was treated with rounds of steroids, and antibiotics. During the last visit she was prescribed Levaquin 500 mg daily for 7 days, in addition to prednisone taper. However her symptoms became progressively worse despite the treatment, she was having subjective fever and chills at home, chest tightness, wheezing, chest congestion, productive cough and she presented to the emergency department for further evaluation and treatment. Chest x-ray completed in the emergency department on 04/02/2018 showed normal chest x-ray. EKG showed normal sinus rhythm with frequent PVCs. Blood work showed leukocytosis WBC of 17.8, sodium of 141, potassium is 4.1, chloride of 97, carbon dioxide of 32, BUN of 34, creatinine of 1.0, troponin and cardiac enzymes were negative 1, proBNP was within normal limits at 412. D-dimer was negative. Patient has a history of severe Gold stage IV chronic obstructive pulmonary disease with an underlying FEV1 value of 27% of predicted. Other history includes rheumatoid arthritis, pneumonia, hypertension, gout, colitis, cancer of the vulva with surgical resection, depression, patient is an ex-smoker. Patient underwent an open right colectomy on 07/13/2017 for a small bowel obstruction by Dr. Burger, she had subsequently developed a fascial dehiscence and required reclosure of her abdominal wall. We are seeing the patient today in consultation for an acute COPD exacerbation with failed outpatient treatment. On 04/03/2018 patient seen in follow-up on medical surgical floor. She reports slight improvement with breathing, sounds still remain very diminished, tight and wheezy slightly better air movement noted bilaterally. Afebrile, signs are stable, as a stable, she is on room air with O2 sat at 94%, continue current medical treatment, continue same dose steroids, empiric antibiotics, belies treatments, his labs have been reviewed, no new chest x-rays. Not back to her baseline yet, but improving. On 04/04/2018 patient seen in follow-up on medical surgical floor. She reports limited improvement in her breathing, patient remains very dyspneic with any exertion, there are end-expiratory wheezes bilaterally. She is not able to bring up any phlegm. Room air oxygen is 93%, she is afebrile, she has been treated with high-dose steroids, and patient does not think she has made much improvement. She is requesting to have a bronchoscopy with therapeutic BAL. Patient is making slow improvement, and we will continue with current medical treatment for now, unless there is deterioration in her status. In view of her very poor lung function, the risk of bronchoscopy would outweigh any potential benefit. This was explained to the patient, and the potential of the patient ending up on a mechanical ventilator in view of her poor lung function. Patient agreed to continue with current medical treatment as long as there is improvement. On 04/05/2018 patient seen in follow-up. Continues to slowly improve, lung sounds are positive for diffuse wheezes, she denies worsening dyspnea. Room air pulse ox is 93%, vital signs are stable, still not able to bring up any sputum. Continues is on IV Solu-Medrol, nebulized bronchodilators. She tolerates ambulation, no acute events overnight. On 04/08/2018 patient seen again in medical surgical floor. She states she has made very limited improvement since admission, continues to complain of wheezing , and dyspnea. Not able to bring up any phlegm. She is insisting on proceeding with bronchoscopy, despite the fact that she has a very poor lung function, and bronchoscopy with BAL very risky procedure for her, that could potentially lead to patient ending up on mechanical ventilator, or even result in patient's . Physical exam reveals diminished breath sounds bilaterally , with expiratory wheezes, room air pulse ox is 95%, patient does wear oxygen intermittently, she is afebrile, vital signs are stable. Patient is on empiric antibiotics in the form of Zithromax, she is on oral prednisone, nebulized bronchodilators. The risks of the bronchoscopy were again discussed with the patient, including the risk of breast or failure requiring mechanical ventilation, and possible , and the patient is requesting to proceed with the procedure. We will continue with current medical treatment, we will tentatively schedule patient's bronchoscopy for Sunday On 04/09/2018 patient seen again in follow-up on medical surgical floor. Lung sounds remain diminished, with end expiratory wheezing, patient still is not able to cough up, but the cough is dry, and not particularly congested. Patient still wants to proceed with bronchoscopy tomorrow on with 04/10/2018, in the meanwhile will continue with current medical treatment, IV steroids, Zithromax, and nebulized bronchodilators. The patient was again reminded that the bronchoscopy is risky in view of her poor lung function, the patient is aware, and would like to proceed On 04/10/2018 patient seen in follow-up on medical surgical floor. Still has chest tightness, wheezing, exertional dyspnea, but overall remains stable. Vital signs are stable, pulse ox on 3 L per nasal cannula is 97%, lung sounds are diminished bilaterally, with a few end expiratory wheezes. Not producing any phlegm. She still wants to proceed with bronchoscopy with BAL today. Patient is scheduled for 1 PM this afternoon with Dr. Cade. Objective - Vital Signs Vital signs: Vital Signs Temp 97.9 F 04/10/18 05:15 Pulse 96 04/10/18 08:02 Resp 16 04/10/18 05:15 BP 157/89 04/10/18 05:15 Pulse Ox 97 04/10/18 05:15 Intake & Output 04/09/18 04/10/18 04/10/18 18:59 06:59 18:59 Output Total 1 Balance -1 Weight 72 kg Output: Urine 1 Other: Voiding Method Toilet Toilet # Voids 4 2 # Bowel Movements 1 - Exam GENERAL EXAM: Alert, pleasant, 63-year-old white female comfortable in no apparent distress. HEAD: Normocephalic/atraumatic. EYES: Normal reaction of pupils, equal size. Conjunctiva pink, sclera white. NOSE: Clear with pink turbinates. THROAT: No erythema or exudates. NECK: No masses, no JVD, no thyroid enlargement, no adenopathy. CHEST: No chest wall deformity. Symmetrical expansion. LUNGS: Diminished lung sounds bilaterally, with diffuse wheezes. CVS: Regular rate and rhythm, normal S1 and S2, no gallops, no murmurs, no rubs ABDOMEN: Soft, nontender. No hepatosplenomegaly, normal bowel sounds, no guarding or rigidity. EXTREMITIES: No clubbing, no edema, no cyanosis, 2+ pulses and upper and lower extremities. MUSCULOSKELETAL: Muscle strength and tone normal. SPINE: No scoliosis or deformity SKIN: No rashes CENTRAL NERVOUS SYSTEM: Alert and oriented -3. No focal deficits, tone is normal in all 4 extremities. PSYCHIATRIC: Alert and oriented -3. Appropriate affect. Intact judgment and insight. - Labs CBC & Chem 7: 04/03/18 09:41 04/03/18 09:41 Labs: Abnormal Lab Results - Last 24 Hours (Table) 04/09/18 04/09/18 04/09/18 Range/Units 11:31 16:55 20:15 POC Glucose (mg/dL) 146 H 254 H 126 H (75-99) mg/dL 04/10/18 Range/Units 06:47 POC Glucose (mg/dL) 131 H (75-99) mg/dL Assessment and Plan Plan: Assessment: #1. Acute exacerbation of chronic obstructive pulmonary disease with purulent tracheobronchitis, with failed outpatient treatment #2. Advanced severe COPD, GOLD stage IV, baseline FEV1 of 27% of predicted, chronic hypercapnic respiratory failure #3. Leukocytosis, possibly related to repeated rounds of steroids #4. History of nicotine dependence, currently in remission #5. Rheumatoid arthritis #6. Hypertension #7. Seasonal ALLERGIES #8. Depression #9. History of right colectomy in June 2017 for small bowel obstruction with subsequent wound dehiscence and reclosure #10. History of vulvar cancer with resection, hysterectomy Plan: Continue with current medical treatment, IV steroids, antibiotics, and nebulized bronchodilators, we'll proceed with bronchoscopy with BAL with Dr. Cade today at 1 PM in the afternoon. I performed a history & physical examination of the patient and discussed their management with my nurse practitioner, Savanah Mart. I reviewed the nurse practitioner's note and agree with the documented findings and plan of care. Lung sounds are positive for diffuse wheezes. The findings and the impression was discussed with the patient. I attest to the documentation by the nurse practitioner. Time with Patient: Less than 30
[2018-04-10 11:47] LABS: Glucose,Whole Blood 132 mg/dL (75-99)
[2018-04-10] MEDS: THIAMINE 100 MG TAB PO SCH ×2 (12:49→15:52)
[2018-04-10] MEDS ORDERED: KETAMINE 10 MG/ML 20 ML VIAL ONE (13:15)
[2018-04-10] MEDS ORDERED: MIDAZOLAM 2 MG/2 ML VIAL ONE (13:15)
[2018-04-10] MEDS ORDERED: GLYCOPYRROLATE 0.2 MG/ML 2 ML VIAL ONE (13:15)
[2018-04-10] MEDS ORDERED: PROPOFOL 10 MG/ML 20 ML VIAL IV ONE (13:15)
[2018-04-10] MEDS ORDERED: LIDOCAINE 1% INJ 10MG/ML (20 ML MDV) INTRATRACH ONE (13:35)
[2018-04-10 17:20] LABS: Glucose,Whole Blood 186 mg/dL (75-99)
--- NOTE | 2018-04-10 18:06 | P.PN ---
Subjective Progress Note Date: 04/10/18 progress note being dictated for Dr. Canela Interval history: Acute COPD exacerbation Patient is a 63-year-old female with known history of advanced COPD with FEV1 of 27% of predicted on home oxygen, her brother arthritis, history of open right colectomy on 07/13/2017 due to small bowel obstruction and subsequently developed facial lesions and required reclosure of her abdominal wall and other multiple medical problems came to ER with complaints of worsening shortness of breath congestion and wheezing. Patient has been having symptoms for the past 1 month and was treated with oral steroids and antibiotics and was sent home with antibiotics in the form of Levaquin recently. Symptoms have been progressively getting worse along with subjective fevers and chills. Patient came to ER for further evaluation Chest x-ray is negative for an acute process EKG showed normal sinus rhythm with frequent PVCs BNP 412 D-dimer negative 04/03/2018 Patient is still having shortness of breath but did improve clinically slightly. Still having diminished breath sounds bilaterally and slow to improve. Not to baseline yet. Otherwise patient is being continued on IV steroids. Patient did mention antibiotics. Pulmonary is following. Continue with the oxygen with another cannula. 04/04/2018 Patient did have some improvement in breathing but otherwise patient still having expiratory wheezing and tightness in the lungs. Saturating well on nasal cannula. Patient is being continued on steroids and breathing treatments. No complaints of chest pain. No nausea vomiting or abdominal pain. Pulmonary is following. 04/05/2018 Patient did have some improvement in breathing status otherwise patient is still wheezing. Not at baseline. Patient does have advanced COPD. 04/06/2018 Patient is able to sit on the bed today. Still having exertional short of breath with minimal walking. Patient does have diffuse wheezing. Continued on IV steroids and breathing treatments. Pulmonary is on board. 04/07/2018 Patient's breathing status is much improved today. Still having shortness of breath with walking. Otherwise wheezing improved as well. Continue on current management with IV steroids and breathing treatments and pulmonary is on board. Anticipate discharge next 24 hours with or clinical improvement. 04/08/2012 and Patient became more short of breath today. Otherwise patient is being continued on IV steroids and breathing treatments and pulmonary is planning for bronchoscopy. No chest pain. No nausea vomiting or abdominal pain. No headache or dizziness lightheadedness. No abdominal pain. All other review of systems negative except the above Active Medications Generic Name Dose Route Start Last Admin Trade Name Freq PRN Reason Stop Dose Admin Acetaminophen 650 mg 04/04/18 03:50 04/04/18 04:08 Tylenol Tab PO 650 mg Q6HR PRN Administration Fever and/ or Pain Hydrocodone Bitart/Acetaminophen 1 each 04/02/18 05:59 04/08/18 21:21 [place] 10 PO 1 each TID PRN Administration Moderate to Severe Pain Albuterol/Ipratropium 3 ml 04/02/18 05:56 04/08/18 02:59 Duoneb 0.5 Mg-3 Mg/3 Ml Soln INHALATION 3 ml RT-Q4H PRN Administration Shortness Of Breath Or Wheezing Albuterol/Ipratropium 3 ml 04/02/18 12:00 04/08/18 19:44 Duoneb 0.5 Mg-3 Mg/3 Ml Soln INHALATION 3 ml RT-QID LATESHA Administration Artificial Tears 1 drops 04/08/18 11:45 04/08/18 13:45 Artificial Tear Drops BOTH EYES 1 drops TID PRN Administration Dry Eye(s) Azithromycin 500 mg 04/05/18 15:00 04/08/18 13:45 Zithromax PO 04/09/18 15:01 500 mg DAILY@1500 LATESHA Administration Budesonide 1 mg 04/02/18 20:00 04/08/18 19:42 Pulmicort INHALATION 1 mg RT-BID LATESHA Administration Diphenhydramine HCl 50 mg 04/02/18 21:00 04/08/18 20:34 Benadryl PO 50 mg HS LATESHA Administration Formoterol Fumarate 20 mcg 04/02/18 20:00 04/08/18 19:42 Perforomist INHALATION 20 mcg RT-BID LATESHA Administration Furosemide 40 mg 04/02/18 05:59 04/08/18 17:31 Lasix PO 40 mg DAILY PRN Administration Edema Guaifenesin 600 mg 04/02/18 09:00 04/08/18 20:35 Mucinex PO 600 mg Q12HR LATESHA Administration Ibuprofen 800 mg 04/02/18 05:59 04/08/18 12:10 Motrin PO 800 mg Q8H PRN Administration Pain Insulin Aspart 0 unit 04/02/18 12:30 04/08/18 21:21 Novolog SQ 3 unit ACHS LATESHA Administration Protocol Lisinopril 20 mg 04/02/18 09:00 04/08/18 08:29 Zestril PO 20 mg QAM LATESHA Administration Lorazepam 0.5 mg 04/08/18 11:45 04/08/18 20:34 Ativan PO 0.5 mg BID PRN Administration Anxiety Methylprednisolone Sodium Succinate 60 mg 04/08/18 12:00 04/08/18 17:33 Solu-Medrol IV 60 mg Q6HR LATESHA Administration Montelukast Sodium 10 mg 04/02/18 21:00 04/08/18 20:34 Singulair PO 10 mg HS LATESHA Administration Nystatin 500,000 unit 04/03/18 09:30 04/08/18 20:35 Mycostatin Oral Susp PO 500,000 unit QID LATESHA Administration Thiamine HCl 100 mg 04/02/18 12:00 04/08/18 17:33 Vitamin B-1 PO 100 mg BID@1200,1700 LATESHA Administration 04/09/2018 slow Improvement,NPC. Scheduled for bronchoscopy with pulmonary tomorrow. 04/10/2018 NPO, awaiting bronchoscopy this afternoon with pulmonary. Denies chest pain or palpitations. Objective - Vital Signs Vital signs: Vital Signs Temp 97.7 F 04/10/18 14:46 Pulse 100 04/10/18 16:06 Resp 20 04/10/18 14:46 BP 150/89 04/10/18 14:46 Pulse Ox 95 04/10/18 14:10 Intake & Output 04/09/18 04/10/18 04/10/18 18:59 06:59 18:59 Output Total 1 Balance -1 Weight 72 kg Output: Urine 1 Other: Voiding Method Toilet Toilet # Voids 4 2 2 # Bowel Movements 1 - Exam PHYSICAL EXAMINATION: Patient is sitting up at side of bed comfortably, no acute distress, awake alert and oriented. Visiting with brother at bedside. HEENT: Normocephalic. Neck is supple. Pupils reactive. Nostrils clear. Oral cavity is moist. Ears reveal no drainage. Neck reveals no JVD, carotid bruits, or thyromegaly. CHEST EXAMINATION: Trachea is central. Symmetrical expansion. Bilateral diminished air entry and diffuse expiratory wheezing CARDIAC: Normal S1, S2 with no gallops. No murmurs ABDOMEN: Soft. Bowel sounds normal. No organomegaly. No abdominal bruits. Extremities: reveal no edema. No clubbing or cyanosis Neurologically awake, alert, oriented x3 with well-coordinated movements. No focal deficits noted Skin: No rash or skin lesions. Psychiatric: Coperative. Nonsuicidal Musculoskeletal: No joint swelling or deformity. Normal range of motion. - Labs CBC & Chem 7: 04/03/18 09:41 04/03/18 09:41 Labs: Abnormal Lab Results - Last 24 Hours (Table) 04/09/18 04/10/18 04/10/18 Range/Units 20:15 06:47 11:38 POC Glucose (mg/dL) 126 H 131 H 132 H (75-99) mg/dL 04/10/18 Range/Units 16:56 POC Glucose (mg/dL) 186 H (75-99) mg/dL Assessment and Plan Assessment: Acute COPD exacerbation and failed outpatient treatment Advanced COPD with FEV1 of 27% of predicted Leukocytosis due to recent steroid use Chronic hypercapnic and hypoxic respiratory failure. On home oxygen at 3 L Rheumatoid arthritis Hypertension Depression Seasonal ALLERGIES History of nicotine addiction. History of bowel obstruction status post right colectomy in June 2017 with subsequent wound dehiscence and reclosure History of vulvar cancer with resection and hysterectomy DVT prophylaxis Plan:continuing current medication regime ,monitoring and symptomatic treatment.Continue on IV steroids and DuoNeb's, Pulmicort and Perforomist.bronchoscopy pending . Prognosis guarded given multiple complex medical issues. The impression and plan of care has been dictated as directed. : I performed a history and examination of this patient, discussed the same with the dictator. I agree with the dictator's note ,documented as a scribe. Any additional findings or plans will be noted.
--- NOTE | 2018-04-10 19:14 | PCN ---
PROCEDURE NOTE PROCEDURES: Bronchoscopy, airway examination, therapeutic lavage, BAL right lower lobe. OPERATORS: Alyssia and Mayda. There was informed consent. There was universal timeout. The patient's procedure took place in room #1. SUPERINTENDENT DRILLING provided unconscious sedation and general anesthesia. The reason for the procedure was retained secretions in a patient with severe COPD. POSTOP DIAGNOSIS: Retained secretions in a patient with severe COPD. After the patient was adequately sedated and being fully monitored, the bronchoscope was inserted through the right nostril. It passed through the right nasopharynx into the oropharynx. The hypopharynx was identified and topicalized. The hypopharyngeal structures including anterior commissure, true cords, false cords, arytenoids, piriform sinuses, right and left vallecula and epiglottis all appeared normal. After topical sedation the bronchoscope was pushed through the glottic opening into the trachea. Trachea appeared relatively normal. Tracheal rod was sharp. There was a thorough inspection of both lungs. The right upper lobe and its 3 segments, right middle lobe and its 2 segments, right lower lobe and its 5 segments, left upper lobe proper and its 2 segments, lingula and its 2 segments, the left lower lobe and its 4 segments were all found to be relatively normal save for diffuse bronchitis. There was diffuse erythema and hyperemia of the airways. There was thin secretions noted throughout. There was no dominant mass or tumor. Secretions were suctioned with ease. The bronchoscope was then wedged into the right lower lobe. The BAL took place. There was no immediate complications. There was no bleeding or blood loss. The patient tolerated the procedure well. After the BAL was collected, the bronchoscope was withdrawn. There was no immediate complication. The patient will be recovered. MMODL / IJN: [id number] /
[2018-04-10 20:10] LABS: Appearance,BF Hazy; Color,BF Colorless; Mononuclear WBC,Body Fluid 9 %; Nucleated Cells, Body Fluid 160 /uL; Polynuclear WBC,Body Fluid 91 %; RBC, Body Fluid 315 /uL
[2018-04-10] MEDS: diphenhydrAMINE 50 MG CAP PO SCH (20:21)
[2018-04-10] MEDS: MONTELUKAST 10 MG TAB PO SCH (20:21)
[2018-04-10 21:01] LABS: Glucose,Whole Blood 126 mg/dL (75-99)
[2018-04-11] MEDS: methylPREDNISolone SOD SUCCI 125 MG/2 ML VIAL IV SCH ×5 (00:07→23:36)
[2018-04-11] MEDS: IBUPROFEN 800 MG TAB PO PRN ×2 (00:11→20:41)
[2018-04-11] MEDS: LACTATED RINGERS 1,000 ML IV SCH ×2 (02:58→20:41)
[2018-04-11] MEDS: HYDROcodone/APAP 10-325MG 1 EACH TAB PO PRN ×3 (04:11→20:40)
[2018-04-11] MEDS: LORazepam 0.5 MG TAB PO PRN ×2 (04:12→22:05)
[2018-04-11 07:36] LABS: Glucose,Whole Blood 159 mg/dL (75-99)
[2018-04-11] MEDS: BUDESONIDE 1 MG/2 ML NEBU INHALATION SCH ×2 (08:13→20:28)
[2018-04-11] MEDS: IPRATROPIUM-ALBUTEROL 3 ML NEB INHALATION SCH ×4 (08:13→20:28)
[2018-04-11] MEDS: FORMOTEROL FUMARATE 20 MCG/2 ML NEBU INHALATION SCH ×2 (08:13→20:28)
[2018-04-11] MEDS: INSULIN ASPART 100 UNIT/ML 1 ML 10 ML VIAL SQ SCH ×4 (08:23→20:46)
[2018-04-11] MEDS: LISINOPRIL 20 MG TAB PO SCH (08:26)
[2018-04-11] MEDS: guaiFENesin 600 MG TABLET.ER PO SCH ×2 (08:26→20:41)
[2018-04-11] MEDS: NYSTATIN 100,000 UNIT/ML SUSP 500,000 UNIT/5 ML CUP PO SCH ×4 (08:26→20:41)
[2018-04-11] MEDS: THIAMINE 100 MG TAB PO SCH ×2 (08:26→15:56)
[2018-04-11 09:20] LABS: HCT 38.6 % (34.0-46.0); HGB 12.1 gm/dL (11.4-16.0); MCH 32.1 pg (25.0-35.0); MCHC 31.5 g/dL (31.0-37.0); Macrocytosis Slight; Mean Platelet Volume 7.3; Platelet Count 263 k/uL (150-450); RBC 3.79 m/uL (3.80-5.40)
[2018-04-11 09:28] LABS: WBC 33.9 k/uL (3.8-10.6)
[2018-04-11 09:34] LABS: Anion Gap 8 mmol/L; Blood Urea Nitrogen 45 mg/dL (7-17); Carbon Dioxide 35 mmol/L (22-30); Chloride 99 mmol/L (98-107); Glucose 171 mg/dL (74-99); Potassium 4.7 mmol/L (3.5-5.1); Sodium 142 mmol/L (137-145)
[2018-04-11 11:06] LABS: Band Neutrophils % 1 %; Lymphocytes # (M) 0.68 k/uL (1.0-4.8); Monocytes # (M) 0.34 k/uL (0-1.0); Myelocytes # (M) 0.34 k/uL (0); Myelocytes % 1 %; Neutrophils % (M) 97 %; Nucleated Red Blood Cells 0 /100 WBC (0-0); Poikilocytosis (M) Present; Stomatocytes Present; Total Cells Counted 200
[2018-04-11 12:18] LABS: Glucose,Whole Blood 184 mg/dL (75-99)
--- NOTE | 2018-04-11 14:04 | P.PN ---
Subjective Progress Note Date: 04/11/18 Principal diagnosis: Acute exacerbation of chronic obstructive pulmonary disease, complicated by purulent tracheobronchitis, failed outpatient treatment Estelle is a 63-year-old white female patient of Dr. Mijares who presented to the emergency department on 04/02/2018 at 03 38 with complaints of increasing dyspnea, chest congestion, wheezing, chest tightness. Patient has had ongoing symptoms since early in February, after she had traveled to [place] with a friend who had smoked in the car. Patient had also been out of for Perforomist and Pulmicort due to her loss of insurance. She was seen by Dr. Ohara in the pulmonary office on 03/15/2018 and again in 03/26/2018 in follow-up, she was treated with rounds of steroids, and antibiotics. During the last visit she was prescribed Levaquin 500 mg daily for 7 days, in addition to prednisone taper. However her symptoms became progressively worse despite the treatment, she was having subjective fever and chills at home, chest tightness, wheezing, chest congestion, productive cough and she presented to the emergency department for further evaluation and treatment. Chest x-ray completed in the emergency department on 04/02/2018 showed normal chest x-ray. EKG showed normal sinus rhythm with frequent PVCs. Blood work showed leukocytosis WBC of 17.8, sodium of 141, potassium is 4.1, chloride of 97, carbon dioxide of 32, BUN of 34, creatinine of 1.0, troponin and cardiac enzymes were negative 1, proBNP was within normal limits at 412. D-dimer was negative. Patient has a history of severe Gold stage IV chronic obstructive pulmonary disease with an underlying FEV1 value of 27% of predicted. Other history includes rheumatoid arthritis, pneumonia, hypertension, gout, colitis, cancer of the vulva with surgical resection, depression, patient is an ex-smoker. Patient underwent an open right colectomy on 07/13/2017 for a small bowel obstruction by Dr. Burger, she had subsequently developed a fascial dehiscence and required reclosure of her abdominal wall. We are seeing the patient today in consultation for an acute COPD exacerbation with failed outpatient treatment. On 04/03/2018 patient seen in follow-up on medical surgical floor. She reports slight improvement with breathing, sounds still remain very diminished, tight and wheezy slightly better air movement noted bilaterally. Afebrile, signs are stable, as a stable, she is on room air with O2 sat at 94%, continue current medical treatment, continue same dose steroids, empiric antibiotics, belies treatments, his labs have been reviewed, no new chest x-rays. Not back to her baseline yet, but improving. On 04/04/2018 patient seen in follow-up on medical surgical floor. She reports limited improvement in her breathing, patient remains very dyspneic with any exertion, there are end-expiratory wheezes bilaterally. She is not able to bring up any phlegm. Room air oxygen is 93%, she is afebrile, she has been treated with high-dose steroids, and patient does not think she has made much improvement. She is requesting to have a bronchoscopy with therapeutic BAL. Patient is making slow improvement, and we will continue with current medical treatment for now, unless there is deterioration in her status. In view of her very poor lung function, the risk of bronchoscopy would outweigh any potential benefit. This was explained to the patient, and the potential of the patient ending up on a mechanical ventilator in view of her poor lung function. Patient agreed to continue with current medical treatment as long as there is improvement. On 04/05/2018 patient seen in follow-up. Continues to slowly improve, lung sounds are positive for diffuse wheezes, she denies worsening dyspnea. Room air pulse ox is 93%, vital signs are stable, still not able to bring up any sputum. Continues is on IV Solu-Medrol, nebulized bronchodilators. She tolerates ambulation, no acute events overnight. The patient is seen today 04/06/2018 in follow-up on the regular medical floor. She is currently sitting up in bed. She is awake and alert in no acute distress. She does get quite dyspneic with minimal exertion however. Still not quite back to her baseline. She is maintaining good O2 saturations in the upper 90s on 2 L/m per nasal cannula. She's been afebrile. On 04/08/2018 patient seen again in medical surgical floor. She states she has made very limited improvement since admission, continues to complain of wheezing , and dyspnea. Not able to bring up any phlegm. She is insisting on proceeding with bronchoscopy, despite the fact that she has a very poor lung function, and bronchoscopy with BAL very risky procedure for her, that could potentially lead to patient ending up on mechanical ventilator, or even result in patient's . Physical exam reveals diminished breath sounds bilaterally , with expiratory wheezes, room air pulse ox is 95%, patient does wear oxygen intermittently, she is afebrile, vital signs are stable. Patient is on empiric antibiotics in the form of Zithromax, she is on oral prednisone, nebulized bronchodilators. The risks of the bronchoscopy were again discussed with the patient, including the risk of breast or failure requiring mechanical ventilation, and possible , and the patient is requesting to proceed with the procedure. We will continue with current medical treatment, we will tentatively schedule patient's bronchoscopy for Sunday On 04/09/2018 patient seen again in follow-up on medical surgical floor. Lung sounds remain diminished, with end expiratory wheezing, patient still is not able to cough up, but the cough is dry, and not particularly congested. Patient still wants to proceed with bronchoscopy tomorrow on with 04/10/2018, in the meanwhile will continue with current medical treatment, IV steroids, Zithromax, and nebulized bronchodilators. The patient was again reminded that the bronchoscopy is risky in view of her poor lung function, the patient is aware, and would like to proceed On 04/10/2018 patient seen in follow-up on medical surgical floor. Still has chest tightness, wheezing, exertional dyspnea, but overall remains stable. Vital signs are stable, pulse ox on 3 L per nasal cannula is 97%, lung sounds are diminished bilaterally, with a few end expiratory wheezes. Not producing any phlegm. She still wants to proceed with bronchoscopy with BAL today. Patient is scheduled for 1 PM this afternoon with Dr. Cade. The patient is seen again today 04/11/2018 in follow-up on the regular medical floor. She is awake and alert in no acute distress. She is sitting up at the bedside. She's been up ambulating in her room. She did undergo bronchoscopy with BAL. Cultures are pending. She is breathing easier today as compared to yesterday. She continues to maintain good O2 saturations in the mid 90s on 4 L/ m per nasal cannula. White count 33.9. Hemoglobin 12.1. Creatinine 0.74. Objective - Vital Signs Vital signs: Vital Signs Temp 97.2 F L 04/11/18 06:34 Pulse 113 H 04/11/18 12:13 Resp 20 04/11/18 06:34 BP 159/84 04/11/18 06:34 Pulse Ox 95 04/11/18 08:16 Intake & Output 04/10/18 04/11/18 04/11/18 18:59 06:59 18:59 Other: # Voids 1 3 - Exam GENERAL EXAM: Cushingoid features. Alert, pleasant, 63-year-old white female comfortable in no apparent distress. HEAD: Normocephalic/atraumatic. EYES: Normal reaction of pupils, equal size. Conjunctiva pink, sclera white. NOSE: Clear with pink turbinates. THROAT: No erythema or exudates. NECK: No masses, no JVD, no thyroid enlargement, no adenopathy. CHEST: No chest wall deformity. Symmetrical expansion. LUNGS: Diminished lung sounds bilaterally, with bilateral end expiratory wheezes. CVS: Regular rate and rhythm, normal S1 and S2, no gallops, no murmurs, no rubs ABDOMEN: Soft, nontender. No hepatosplenomegaly, normal bowel sounds, no guarding or rigidity. EXTREMITIES: No clubbing, no edema, no cyanosis, 2+ pulses and upper and lower extremities. MUSCULOSKELETAL: Muscle strength and tone normal. SPINE: No scoliosis or deformity SKIN: No rashes CENTRAL NERVOUS SYSTEM: No focal deficits, tone is normal in all 4 extremities. PSYCHIATRIC: Alert and oriented -3. Appropriate affect. Intact judgment and insight. - Labs CBC & Chem 7: 04/11/18 08:41 04/11/18 08:41 Labs: Abnormal Lab Results - Last 24 Hours (Table) 04/10/18 04/10/18 04/10/18 Range/Units 13:00 16:56 20:55 WBC (3.8-10.6) k/uL RBC (3.80-5.40) m/uL MCV (80.0-100.0) fL RDW (11.5-15.5) % Neutrophils # (Manual) (1.3-7.7) k/uL Lymphocytes # (Manual) (1.0-4.8) k/uL Myelocytes # (Manual) (0) k/uL Carbon Dioxide (22-30) mmol/L BUN (7-17) mg/dL Glucose (74-99) mg/dL POC Glucose (mg/dL) 186 H 126 H (75-99) mg/dL Viral Test See Below H 04/11/18 04/11/18 04/11/18 Range/Units 07:34 08:41 08:41 WBC 33.9 H* (3.8-10.6) k/uL RBC 3.79 L (3.80-5.40) m/uL MCV 102.0 H (80.0-100.0) fL RDW 16.0 H (11.5-15.5) % Neutrophils # (Manual) 33.20 H (1.3-7.7) k/uL Lymphocytes # (Manual) 0.68 L (1.0-4.8) k/uL Myelocytes # (Manual) 0.34 H (0) k/uL Carbon Dioxide 35 H (22-30) mmol/L BUN 45 H (7-17) mg/dL Glucose 171 H (74-99) mg/dL POC Glucose (mg/dL) 159 H (75-99) mg/dL Viral Test 04/11/18 Range/Units 12:06 WBC (3.8-10.6) k/uL RBC (3.80-5.40) m/uL MCV (80.0-100.0) fL RDW (11.5-15.5) % Neutrophils # (Manual) (1.3-7.7) k/uL Lymphocytes # (Manual) (1.0-4.8) k/uL Myelocytes # (Manual) (0) k/uL Carbon Dioxide (22-30) mmol/L BUN (7-17) mg/dL Glucose (74-99) mg/dL POC Glucose (mg/dL) 184 H (75-99) mg/dL Viral Test Microbiology - Last 24 Hours (Table) 04/10/18 13:00 Acid Fast Bacilli Smear - Final Bronchoalviolar Lavage - Right Acid Fast Bacilli Culture - Preliminary 04/10/18 13:00 Gram Stain - Preliminary Bronchoalviolar Lavage - Right Bronchial Washings Culture - Preliminary 04/10/18 13:00 Fungal Culture - Preliminary Bronchoalviolar Lavage - Right Assessment and Plan Assessment: Assessment: #1. Acute exacerbation of chronic obstructive pulmonary disease with purulent tracheobronchitis, with failed outpatient treatment #2. Advanced severe COPD, GOLD stage IV, baseline FEV1 of 27% of predicted, chronic hypercapnic respiratory failure #3. Leukocytosis, possibly related to repeated rounds of steroids #4. History of nicotine dependence, currently in remission #5. Rheumatoid arthritis #6. Hypertension #7. Seasonal ALLERGIES #8. Depression #9. History of right colectomy in June 2017 for small bowel obstruction with subsequent wound dehiscence and reclosure #10. History of vulvar cancer with resection, hysterectomy Plan: The patient was seen and evaluated by Dr. Cade. She did undergo bronchoscopy with BAL. Cultures are pending. From the pulmonary standpoint she is cleared for discharge to home on azithromycin 500 mg daily for 5 days and then keep her on 250 mg on Sunday maintenance. Complete prednisone taper starting at 40 mg daily for 4 days. Continue her home pulmonary medications. Follow-up in our office in 1-2 weeks' time. I, the cosigning physician, performed a history & physical examination of the patient. Lungs sounds with bilateral wheezing. Diminished. Maintaining good O2 saturations in the 90s on 4 L/m per nasal cannula. I discussed the assessment and plan of care with my nurse practitioner, Symone Ohara. I attest to the above note as dictated by her.
[2018-04-11] MEDS: BENZOCAINE/MENTHOL LOZENG 1 EACH LOZENGE MUCOUS MEM PRN ×2 (16:39→22:05)
--- NOTE | 2018-04-11 16:48 | P.PN ---
Subjective Progress Note Date: 04/11/18 progress note being dictated for Dr. Canela Interval history: Acute COPD exacerbation Patient is a 63-year-old female with known history of advanced COPD with FEV1 of 27% of predicted on home oxygen, her brother arthritis, history of open right colectomy on 07/13/2017 due to small bowel obstruction and subsequently developed facial lesions and required reclosure of her abdominal wall and other multiple medical problems came to ER with complaints of worsening shortness of breath congestion and wheezing. Patient has been having symptoms for the past 1 month and was treated with oral steroids and antibiotics and was sent home with antibiotics in the form of Levaquin recently. Symptoms have been progressively getting worse along with subjective fevers and chills. Patient came to ER for further evaluation Chest x-ray is negative for an acute process EKG showed normal sinus rhythm with frequent PVCs BNP 412 D-dimer negative 04/03/2018 Patient is still having shortness of breath but did improve clinically slightly. Still having diminished breath sounds bilaterally and slow to improve. Not to baseline yet. Otherwise patient is being continued on IV steroids. Patient did mention antibiotics. Pulmonary is following. Continue with the oxygen with another cannula. 04/04/2018 Patient did have some improvement in breathing but otherwise patient still having expiratory wheezing and tightness in the lungs. Saturating well on nasal cannula. Patient is being continued on steroids and breathing treatments. No complaints of chest pain. No nausea vomiting or abdominal pain. Pulmonary is following. 04/05/2018 Patient did have some improvement in breathing status otherwise patient is still wheezing. Not at baseline. Patient does have advanced COPD. 04/06/2018 Patient is able to sit on the bed today. Still having exertional short of breath with minimal walking. Patient does have diffuse wheezing. Continued on IV steroids and breathing treatments. Pulmonary is on board. 04/07/2018 Patient's breathing status is much improved today. Still having shortness of breath with walking. Otherwise wheezing improved as well. Continue on current management with IV steroids and breathing treatments and pulmonary is on board. Anticipate discharge next 24 hours with or clinical improvement. 04/08/2012 and Patient became more short of breath today. Otherwise patient is being continued on IV steroids and breathing treatments and pulmonary is planning for bronchoscopy. No chest pain. No nausea vomiting or abdominal pain. No headache or dizziness lightheadedness. No abdominal pain. All other review of systems negative except the above Active Medications Generic Name Dose Route Start Last Admin Trade Name Freq PRN Reason Stop Dose Admin Acetaminophen 650 mg 04/04/18 03:50 04/04/18 04:08 Tylenol Tab PO 650 mg Q6HR PRN Administration Fever and/ or Pain Hydrocodone Bitart/Acetaminophen 1 each 04/02/18 05:59 04/08/18 21:21 Treece 10 PO 1 each TID PRN Administration Moderate to Severe Pain Albuterol/Ipratropium 3 ml 04/02/18 05:56 04/08/18 02:59 Duoneb 0.5 Mg-3 Mg/3 Ml Soln INHALATION 3 ml RT-Q4H PRN Administration Shortness Of Breath Or Wheezing Albuterol/Ipratropium 3 ml 04/02/18 12:00 04/08/18 19:44 Duoneb 0.5 Mg-3 Mg/3 Ml Soln INHALATION 3 ml RT-QID LATESHA Administration Artificial Tears 1 drops 04/08/18 11:45 04/08/18 13:45 Artificial Tear Drops BOTH EYES 1 drops TID PRN Administration Dry Eye(s) Azithromycin 500 mg 04/05/18 15:00 04/08/18 13:45 Zithromax PO 04/09/18 15:01 500 mg DAILY@1500 LATESHA Administration Budesonide 1 mg 04/02/18 20:00 04/08/18 19:42 Pulmicort INHALATION 1 mg RT-BID LATESHA Administration Diphenhydramine HCl 50 mg 04/02/18 21:00 04/08/18 20:34 Benadryl PO 50 mg HS LATESHA Administration Formoterol Fumarate 20 mcg 04/02/18 20:00 04/08/18 19:42 Perforomist INHALATION 20 mcg RT-BID LATESHA Administration Furosemide 40 mg 04/02/18 05:59 04/08/18 17:31 Lasix PO 40 mg DAILY PRN Administration Edema Guaifenesin 600 mg 04/02/18 09:00 04/08/18 20:35 Mucinex PO 600 mg Q12HR LATESHA Administration Ibuprofen 800 mg 04/02/18 05:59 04/08/18 12:10 Motrin PO 800 mg Q8H PRN Administration Pain Insulin Aspart 0 unit 04/02/18 12:30 04/08/18 21:21 Novolog SQ 3 unit ACHS LATESHA Administration Protocol Lisinopril 20 mg 04/02/18 09:00 04/08/18 08:29 Zestril PO 20 mg QAM LATESHA Administration Lorazepam 0.5 mg 04/08/18 11:45 04/08/18 20:34 Ativan PO 0.5 mg BID PRN Administration Anxiety Methylprednisolone Sodium Succinate 60 mg 04/08/18 12:00 04/08/18 17:33 Solu-Medrol IV 60 mg Q6HR LATESHA Administration Montelukast Sodium 10 mg 04/02/18 21:00 04/08/18 20:34 Singulair PO 10 mg HS LATESHA Administration Nystatin 500,000 unit 04/03/18 09:30 04/08/18 20:35 Mycostatin Oral Susp PO 500,000 unit QID LATESHA Administration Thiamine HCl 100 mg 04/02/18 12:00 04/08/18 17:33 Vitamin B-1 PO 100 mg BID@1200,1700 LATESHA Administration 04/09/2018 slow Improvement,NPC. Scheduled for bronchoscopy with pulmonary tomorrow. 04/10/2018 NPO, awaiting bronchoscopy this afternoon with pulmonary. Denies chest pain or palpitations. 04/11/2018 underwent bronchoscopy yesterday, tolerated procedure well. Procedure reporting retained secretions in a patient with severe COPD. Cultures pending. Sitting up at side of bed, complaining of sore throat, otherwise breathing easier today. Vital signs stable. Objective - Vital Signs Vital signs: Vital Signs Temp 98.6 F 04/11/18 15:37 Pulse 110 H 04/11/18 15:37 Resp 18 04/11/18 15:37 BP 149/81 04/11/18 15:37 Pulse Ox 97 04/11/18 15:37 Intake & Output 04/10/18 04/11/18 04/11/18 18:59 06:59 18:59 Other: # Voids 1 3 3 - Exam PHYSICAL EXAMINATION: Patient is sitting up at side of bed comfortably, no acute distress, awake alert and oriented. HEENT: Normocephalic. Neck is supple. Pupils reactive. Nostrils clear. Oral cavity is moist. Neck reveals no JVD, carotid bruits, or thyromegaly. CHEST EXAMINATION: Trachea is central. Symmetrical expansion. Bilateral diminished air entry and diffuse expiratory wheezing CARDIAC: Normal S1, S2 with no gallops. No murmurs ABDOMEN: Soft. Bowel sounds normal. No organomegaly. No abdominal bruits. Extremities: reveal no edema. No clubbing or cyanosis Neurologically awake, alert, oriented x3 with well-coordinated movements. No focal deficits noted Skin: No rash or skin lesions. Psychiatric: Coperative. Nonsuicidal Musculoskeletal: No joint swelling or deformity. Normal range of motion. - Labs CBC & Chem 7: 04/11/18 08:41 04/11/18 08:41 Labs: Abnormal Lab Results - Last 24 Hours (Table) 04/10/18 04/10/18 04/10/18 Range/Units 13:00 16:56 20:55 WBC (3.8-10.6) k/uL RBC (3.80-5.40) m/uL MCV (80.0-100.0) fL RDW (11.5-15.5) % Neutrophils # (Manual) (1.3-7.7) k/uL Lymphocytes # (Manual) (1.0-4.8) k/uL Myelocytes # (Manual) (0) k/uL Carbon Dioxide (22-30) mmol/L BUN (7-17) mg/dL Glucose (74-99) mg/dL POC Glucose (mg/dL) 186 H 126 H (75-99) mg/dL Viral Test See Below H 04/11/18 04/11/18 04/11/18 Range/Units 07:34 08:41 08:41 WBC 33.9 H* (3.8-10.6) k/uL RBC 3.79 L (3.80-5.40) m/uL MCV 102.0 H (80.0-100.0) fL RDW 16.0 H (11.5-15.5) % Neutrophils # (Manual) 33.20 H (1.3-7.7) k/uL Lymphocytes # (Manual) 0.68 L (1.0-4.8) k/uL Myelocytes # (Manual) 0.34 H (0) k/uL Carbon Dioxide 35 H (22-30) mmol/L BUN 45 H (7-17) mg/dL Glucose 171 H (74-99) mg/dL POC Glucose (mg/dL) 159 H (75-99) mg/dL Viral Test 04/11/18 Range/Units 12:06 WBC (3.8-10.6) k/uL RBC (3.80-5.40) m/uL MCV (80.0-100.0) fL RDW (11.5-15.5) % Neutrophils # (Manual) (1.3-7.7) k/uL Lymphocytes # (Manual) (1.0-4.8) k/uL Myelocytes # (Manual) (0) k/uL Carbon Dioxide (22-30) mmol/L BUN (7-17) mg/dL Glucose (74-99) mg/dL POC Glucose (mg/dL) 184 H (75-99) mg/dL Viral Test Microbiology - Last 24 Hours (Table) 04/10/18 13:00 Acid Fast Bacilli Smear - Final Bronchoalviolar Lavage - Right Acid Fast Bacilli Culture - Preliminary 04/10/18 13:00 Gram Stain - Preliminary Bronchoalviolar Lavage - Right Bronchial Washings Culture - Preliminary 04/10/18 13:00 Fungal Culture - Preliminary Bronchoalviolar Lavage - Right Assessment and Plan Assessment: Acute COPD exacerbation with purulent tracheobronchitis and failed outpatient treatment, status post bronchoscopy, cultures pending. Advanced COPD with FEV1 of 27% of predicted Leukocytosis due to recent steroid use Chronic hypercapnic and hypoxic respiratory failure. On home oxygen at 3 L Rheumatoid arthritis Hypertension Depression Seasonal ALLERGIES History of nicotine addiction. History of bowel obstruction status post right colectomy in June 2017 with subsequent wound dehiscence and reclosure History of vulvar cancer with resection and hysterectomy DVT prophylaxis Plan:continuing current medication regime ,monitoring and symptomatic treatment.Continue on nebulized bronchodilators, steroids, antibiotics. Patient complaining of sore throat, continue monitoring overnight. Discharge planning in progress for tomorrow. The impression and plan of care has been dictated as directed. : I performed a history and examination of this patient, discussed the same with the dictator. I agree with the dictator's note ,documented as a scribe. Any additional findings or plans will be noted.
[2018-04-11 17:15] LABS: Glucose,Whole Blood 197 mg/dL (75-99)
[2018-04-11] MEDS: diphenhydrAMINE 50 MG CAP PO SCH (20:41)
[2018-04-11] MEDS: MONTELUKAST 10 MG TAB PO SCH (20:41)
[2018-04-11 20:43] LABS: Glucose,Whole Blood 180 mg/dL (75-99)
[2018-04-11 23:33] VITALS: RESP 16
[2018-04-12] MEDS: HYDROcodone/APAP 10-325MG 1 EACH TAB PO PRN ×2 (02:08→06:03)
[2018-04-12] MEDS: IPRATROPIUM-ALBUTEROL 3 ML NEB INHALATION PRN (03:11)
[2018-04-12] MEDS: BENZOCAINE/MENTHOL LOZENG 1 EACH LOZENGE MUCOUS MEM PRN (06:03)
[2018-04-12] MEDS: methylPREDNISolone SOD SUCCI 125 MG/2 ML VIAL IV SCH ×2 (06:11→11:48)
[2018-04-12 06:25] VITALS: BP 147/88; TEMP 98.1
[2018-04-12 06:58] LABS: Glucose,Whole Blood 201 mg/dL (75-99)
[2018-04-12] MEDS: BUDESONIDE 1 MG/2 ML NEBU INHALATION SCH (07:14)
[2018-04-12] MEDS: FORMOTEROL FUMARATE 20 MCG/2 ML NEBU INHALATION SCH (07:14)
[2018-04-12] MEDS: IPRATROPIUM-ALBUTEROL 3 ML NEB INHALATION SCH ×2 (07:14→11:08)
[2018-04-12] MEDS: guaiFENesin 600 MG TABLET.ER PO SCH (08:45)
[2018-04-12] MEDS: LISINOPRIL 20 MG TAB PO SCH (08:45)
[2018-04-12] MEDS: THIAMINE 100 MG TAB PO SCH (08:45)
[2018-04-12] MEDS: NYSTATIN 100,000 UNIT/ML SUSP 500,000 UNIT/5 ML CUP PO SCH ×2 (08:45→14:09)
[2018-04-12] MEDS: INSULIN ASPART 100 UNIT/ML 1 ML 10 ML VIAL SQ SCH ×2 (08:46→11:48)
[2018-04-12] MEDS: IBUPROFEN 800 MG TAB PO PRN (08:50)
[2018-04-12] MEDS: LORazepam 0.5 MG TAB PO PRN (08:50)
[2018-04-12 11:22] VITALS: PULSE 104
[2018-04-12 11:30] LABS: Glucose,Whole Blood 123 mg/dL (75-99)
--- NOTE | 2018-04-14 16:24 | P.DS ---
Providers Date of admission: 04/03/18 17:52 Expected date of discharge: 04/12/18 Attending physician: Liliana Canela Consults: 04/02/18 05:56 Consult Physician Routine Consulting Provider: Jose Elias Goodman Consult Reason/Comments: COPD exacerbation Do you want consulting provider notified?: Yes Primary care physician: Maryana Sheth Hospital Course: Final Diagnoses: Acute COPD exacerbation with purulent tracheobronchitis and failed outpatient treatment, status post bronchoscopy, cultures pending. Advanced COPD with FEV1 of 27% of predicted Leukocytosis due to recent steroid use Chronic hypercapnic and hypoxic respiratory failure. On home oxygen at 3 L Rheumatoid arthritis Hypertension Depression Seasonal ALLERGIES History of nicotine addiction. Hospital course: This is a 63-year-old female admitted with acute COPD exacerbation with purulent tracheobronchitis, failed outpatient treatment, and a patient with history of severe advanced COPD. On admission, Chest x-ray is negative for an acute process,EKG showed normal sinus rhythm with frequent PVCs, BNP 412,D-dimer negative. Evaluated by pulmonary. Maintained on IV antibiotics, nebulized bronchodilators , steroids. Underwent bronchoscopy reporting retained secretions in a patient with severe COPD. Cultures pending. Significant clinical improvement. Patient has been cleared for discharge by pulmonary. Patient is being discharged home in a stable condition with guarded prognosis. EXAM: Patient is alert and oriented 3, no acute distress. CHEST EXAMINATION: Trachea is central. Symmetrical expansion. Bilateral diminished air entry and diffuse expiratory wheezing CARDIAC: Normal S1, S2 with no gallops. No murmurs ABDOMEN: Soft. Bowel sounds normal. No organomegaly. No abdominal bruits. Neurologically awake, alert, oriented x3 with well-coordinated movements. No focal deficits noted The impression and plan of care has been dictated as directed. : I performed a history and examination of this patient, discussed the same with the dictator. I agree with the dictator's note ,documented as a scribe. Any additional findings or plans will be noted. Time taken: 35 minutes Patient Condition at Discharge: Stable Plan - Discharge Summary Discharge Rx Participant: Yes New Discharge Prescriptions: New Artificial Tears-Hypromellose [Artificial Tear Drops] 1 drops BOTH EYES TID PRN bottle PRN Reason: Dry Eye(S) Benzocaine/Menthol Lozeng [Cepacol lozenge] 1 each MUCOUS MEM Q4HR PRN lozenge PRN Reason: Cough guaiFENesin [Mucinex] 600 mg PO Q12HR tablet.er Montelukast [Singulair] 10 mg PO HS #30 tab Nystatin 100,000 Unit/ml Susp [Mycostatin Oral Susp] 500,000 unit PO QID # 100 ml predniSONE 10 mg PO DIRECTED #30 tab Thiamine [Vitamin B-1] 100 mg PO DAILY #30 tab Azithromycin [Zithromax] 500 mg PO DAILY #10 tab Continue Benazepril HCl 20 mg PO QAM Furosemide [Lasix] 40 mg PO DAILY PRN PRN Reason: Edema Etanercept [Enbrel] 50 mg SQ Q14D Albuterol Sulfate [Proair Hfa] 1 - 2 puff INHALATION RT-Q6H PRN PRN Reason: Shortness Of Breath HYDROcodone/APAP 10-325MG [[place] 10-325] 1 tab PO TID PRN PRN Reason: Moderate To Severe Pain Polyethylene Glycol 3350 [Miralax] 17 gm PO DAILY Formoterol Fumarate [Perforomist] 20 mcg INHALATION RT-BID Budesonide [Pulmicort] 0.5 mg INHALATION RT-BID Dextroamphetamine/Amphetamine [Adderall Xr] 15 mg PO QAM diphenhydrAMINE [Benadryl] 50 mg PO HS Changed Ipratropium-Albuterol Nebulize [Duoneb 0.5 mg-3 mg/3 ml Soln] 3 ml INHALATION QID #120 ampul.neb Discontinued predniSONE See Taper PO DAILY Nystatin 100,000 Unit/ml Susp [Mycostatin Oral Susp] 500,000 unit PO DAILY Discharge Medication List Benazepril HCl 20 mg PO QAM 01/24/16 [History] Furosemide [Lasix] 40 mg PO DAILY PRN 05/31/17 [History] Etanercept [Enbrel] 50 mg SQ Q14D 07/12/17 [History] Albuterol Sulfate [Proair Hfa] 1 - 2 puff INHALATION RT-Q6H PRN 10/27/17 [ History] HYDROcodone/APAP 10-325MG [[place] 10-325] 1 tab PO TID PRN 12/29/17 [History] Budesonide [Pulmicort] 0.5 mg INHALATION RT-BID 04/02/18 [History] Dextroamphetamine/Amphetamine [Adderall Xr] 15 mg PO QAM 04/02/18 [History] Formoterol Fumarate [Perforomist] 20 mcg INHALATION RT-BID 04/02/18 [History] Polyethylene Glycol 3350 [Miralax] 17 gm PO DAILY 04/02/18 [History] diphenhydrAMINE [Benadryl] 50 mg PO HS 04/02/18 [History] Artificial Tears-Hypromellose [Artificial Tear Drops] 1 drops BOTH EYES TID PRN bottle 04/12/18 [Rx] Benzocaine/Menthol Lozeng [Cepacol lozenge] 1 each MUCOUS MEM Q4HR PRN lozenge 04/12/18 [Rx] Ipratropium-Albuterol Nebulize [Duoneb 0.5 mg-3 mg/3 ml Soln] 3 ml INHALATION QID #120 ampul.neb 04/12/18 [Rx] Montelukast [Singulair] 10 mg PO HS #30 tab 04/12/18 [Rx] Nystatin 100,000 Unit/ml Susp [Mycostatin Oral Susp] 500,000 unit PO QID #100 ml 04/12/18 [Rx] Thiamine [Vitamin B-1] 100 mg PO DAILY #30 tab 04/12/18 [Rx] guaiFENesin [Mucinex] 600 mg PO Q12HR tablet.er 04/12/18 [Rx] predniSONE 10 mg PO DIRECTED #30 tab 04/12/18 [Rx] Azithromycin [Zithromax] 500 mg PO DAILY #10 tab 04/14/18 [Rx] Follow up Appointment(s)/Referral(s): Meryl Mijares MD [Primary Care Provider] - 04/15/18 1:10 pm Jose Elias Goodman MD [STAFF PHYSICIAN] - 04/26/18 2:30 pm (apt. with Gwendolyn Ohara DNP) Ambulatory/Diagnostic Orders: Complete Blood Count w/diff [LAB.AMB] Time Frame: 3 Days, Location: Determined By Patient Patient Instructions/Handouts: COPD (Chronic Obstructive Pulmonary Disease) (DC ) Activity/Diet/Wound Care/Special Instructions: Consistent Carb diet Activity as tolerated Discharge Disposition: HOME SELF-CARE
== END 2018-04-12 14:22 | disposition home or self-care (01) | DRG 167 ==
LOC: EC 03:38 → UNDOADMOB 05:59 → 4MS4W 05:59 → OBSVTOIN 04-03 17:52 → INTOOBSV 04-03 17:52
PROVIDERS: ADMIT Hospitalist; ATTEND Hospitalist
PROC: 0B9F8ZX Drainage of Right Lower Lung Lobe, Via Natural or Artificial Opening Endoscopic, Diagnostic (ICD-10-PCS; principal; 2018-04-10 13:35)
DX: J44.1 Chronic obstructive pulmonary disease with (acute) exacerbation (principal); J96.12 Chronic respiratory failure with hypercapnia; J96.11 Chronic respiratory failure with hypoxia; M06.9 Rheumatoid arthritis, unspecified; I10 Essential (primary) hypertension; F32.9 Major depressive disorder, single episode, unspecified; J30.2 Other seasonal allergic rhinitis; M10.9 Gout, unspecified; M85.80 Other specified disorders of bone density and structure, unspecified site; F41.9 Anxiety disorder, unspecified; I49.3 Ventricular premature depolarization; Z99.81 Dependence on supplemental oxygen; Z90.49 Acquired absence of other specified parts of digestive tract; Z85.44 Personal history of malignant neoplasm of other female genital organs; Z90.710 Acquired absence of both cervix and uterus; Z87.891 Personal history of nicotine dependence; Z85.038 Personal history of other malignant neoplasm of large intestine
CPT/HCPCS: 31624; 36415; 71045; 80048; 80053; 82550; 82553; 82785; 82803; 83036; 83880; 84484; 85025; 85379; 85610; 85730; 86003; 87070; 87102; 87116; 87205; 87206; 87252; 87496; 87498; 87502; 87529; 87634; 87798; 88108; 88305; 89050; 93005; 94640; 94760

== ENCOUNTER 2018-04-19 05:47 | Inpatient (IN) | payer MEDICARE, OTHER ==
--- NOTE | 2018-04-19 06:00 | ED ---
General Adult HPI - General Chief complaint: Shortness of Breath Stated complaint: DOMI Time Seen by Provider: 04/19/18 05:52 Source: patient, EMS, RN notes reviewed, old records reviewed Mode of arrival: EMS Limitations: no limitations - History of Present Illness Initial comments: This is a 63-year-old female the ER for evaluation. Patient has significant history of lung disease. Patient comes in today for evaluation shortness of breath awoke her from sleep. Patient again has recent hospitalization for COPD , recently told she has positive bronchoscopy, positive bacterial infection is still taking antibiotics yesterday. No current fevers. No chest pain. Patient states she does feel improved after breathing treatment by both herself and per EMS. Patient is currently on oxygen when she states she uses when she feels she needs it. - Related Data Home Medications Medication Instructions Recorded Confirmed Benazepril HCl 20 mg PO QAM 01/24/16 04/19/18 Furosemide [Lasix] 40 mg PO DAILY PRN 05/31/17 04/19/18 Etanercept [Enbrel] 50 mg SQ Q14D 07/12/17 04/19/18 HYDROcodone/APAP 10-325MG [[place] 1 tab PO TID PRN 12/29/17 04/19/18 10-325] Budesonide [Pulmicort] 0.5 mg INHALATION RT-BID 04/02/18 04/19/18 Dextroamphetamine/Amphetamine 15 mg PO QAM 04/02/18 04/19/18 [Adderall Xr] Formoterol Fumarate [Perforomist] 20 mcg INHALATION RT-BID 04/02/18 04/19/18 Polyethylene Glycol 3350 [Miralax] 17 gm PO DAILY 04/02/18 04/19/18 diphenhydrAMINE [Benadryl] 50 mg PO HS 04/02/18 04/19/18 Ibuprofen [Motrin] 800 mg PO Q6H PRN 04/19/18 04/19/18 Ipratropium-Albuterol Nebulize 3 ml INHALATION RT-Q4H PRN 04/19/18 04/19/18 [Duoneb 0.5 mg-3 mg/3 ml Soln] Multivit-Min/FA/Lycopen/Lutein 1 tab PO DAILY 04/19/18 04/19/18 [Centrum Silver Tablet] Thiamine [Vitamin B-1] 100 mg PO DAILY@1200 06/22/18 06/22/18 guaiFENesin [Mucinex] 600 mg PO Q12HR PRN 04/19/18 04/19/18 predniSONE See Taper PO DAILY 04/19/18 04/19/18 Previous Rx's Medication Instructions Recorded Artificial Tears-Hypromellose 1 drops BOTH EYES TID PRN bottle 04/12/18 [Artificial Tear Drops] Montelukast [Singulair] 10 mg PO HS #30 tab 04/12/18 Nystatin 100,000 Unit/ml Susp 500,000 unit PO QID #100 ml 04/12/18 [Mycostatin Oral Susp] Azithromycin [Zithromax] 500 mg PO DAILY #10 tab 04/14/18 Allergies Allergy/AdvReac Type Severity Reaction Status Date / Time infliximab [From Remicade] Allergy Dyspnea/HIV Verified 04/19/18 07:24 ES procaine [From Novocain] Allergy Unknown Verified 04/19/18 07:24 propoxyphene HCl Allergy Unknown Verified 04/19/18 07:24 [From Darvon] Review of Systems ROS Statement: Those systems with pertinent positive or pertinent negative responses have been documented in the HPI. ROS Other: All systems not noted in ROS Statement are negative. Past Medical History Past Medical History: Cancer, COPD, Hypertension, Pneumonia, Rheumatoid Arthritis (RA) Additional Past Medical History / Comment(s): History of rectal bleed, vulva cancer, UTI, colitis, benign polyps, gout, osteopenia, sinus/seasonal allergies , ca of appendix. History of Any Multi-Drug Resistant Organisms: None Reported Past Surgical History: Hysterectomy, Joint Replacement Additional Past Surgical History / Comment(s): right knee replacement, surgery to recome vulva cancer, EGD/colonoscopy, lasik eye surgery, right colectomy r/t SBO (wound dehiscence/closure). Past Anesthesia/Blood Transfusion Reactions: No Reported Reaction Additional Past Anesthesia/Blood Transfusion Reaction / Comment(s): Claustrophobia Past Psychological History: Depression Smoking Status: Former smoker Past Alcohol Use History: Daily Past Drug Use History: None Reported - Past Family History Father Family Medical History: Cancer Additional Family Medical History / Comment(s): COLON Mother Family Medical History: Cancer Additional Family Medical History / Comment(s): ESOPHAGUS Sister(s) Family Medical History: Cancer Additional Family Medical History / Comment(s): CERVICAL General Exam Limitations: no limitations General appearance: alert, anxious, in distress Head exam: Present: atraumatic, normocephalic, normal inspection Eye exam: Present: normal appearance, PERRL, EOMI. Absent: scleral icterus, conjunctival injection, periorbital swelling ENT exam: Present: normal exam, mucous membranes moist Neck exam: Present: normal inspection. Absent: tenderness, meningismus, lymphadenopathy Respiratory exam: Present: respiratory distress, wheezes, accessory muscle use, decreased breath sounds, prolonged expiratory. Absent: rales, rhonchi, stridor Cardiovascular Exam: Present: normal rhythm, tachycardia, normal heart sounds. Absent: systolic murmur, diastolic murmur, rubs, gallop, clicks GI/Abdominal exam: Present: soft, normal bowel sounds. Absent: distended, tenderness, guarding, rebound, rigid Extremities exam: Present: normal inspection, full ROM, normal capillary refill. Absent: tenderness, pedal edema, joint swelling, calf tenderness Back exam: Present: normal inspection Neurological exam: Present: alert, oriented X3, CN II-XII intact Psychiatric exam: Present: normal affect, normal mood Skin exam: Present: warm, dry, intact, normal color. Absent: rash Course Vital Signs 04/19/18 04/19/18 04/19/18 05:48 06:11 06:20 Temperature 99 F Pulse Rate 120 H 112 H Respiratory 32 H 23 Rate Blood Pressure 206/97 O2 Sat by Pulse 96 Oximetry 04/19/18 04/19/18 04/19/18 06:29 06:36 07:06 Temperature Pulse Rate 109 H 111 H 114 H Respiratory 22 Rate Blood Pressure 165/90 O2 Sat by Pulse 97 Oximetry 04/19/18 04/19/18 07:30 07:50 Temperature 98.3 F Pulse Rate 113 H Respiratory 22 Rate Blood Pressure 135/71 O2 Sat by Pulse 95 Oximetry - Reevaluation(s) Reevaluation #1: 04/19/18 06:13 Medical record including prior hospitalization is reviewed EKG Findings - EKG Comments: EKG Findings:: EKG shows sinus tachycardia rate of 122, DE 140, QRS 60, QTc 413 Medical Decision Making - Medical Decision Making 63 female the ER for evaluation. Positive shortness of breath. Patient be admitted for persistent shortness of breath and infection - Lab Data Result diagrams: 04/22/18 09:28 04/22/18 09:28 Lab Results 04/19/18 04/19/18 04/19/18 Range/Units 05:53 05:53 05:53 WBC 15.4 H (3.8-10.6) k/uL RBC 3.76 L (3.80-5.40) m/uL Hgb 12.2 (11.4-16.0) gm/dL Hct 38.8 (34.0-46.0) % MCV 103.3 H (80.0-100.0) fL MCH 32.4 (25.0-35.0) pg MCHC 31.4 (31.0-37.0) g/dL RDW 15.7 H (11.5-15.5) % Plt Count 165 (150-450) k/uL Neutrophils % 68 % Lymphocytes % 24 % Monocytes % 6 % Eosinophils % 1 % Basophils % 0 % Neutrophils # 10.5 H (1.3-7.7) k/uL Lymphocytes # 3.7 (1.0-4.8) k/uL Monocytes # 0.9 (0-1.0) k/uL Eosinophils # 0.1 (0-0.7) k/uL Basophils # 0.0 (0-0.2) k/uL Macrocytosis Moderate PT (9.0-12.0) sec INR (<1.2) APTT (22.0-30.0) sec Sodium 146 H (137-145) mmol/L Potassium 4.4 (3.5-5.1) mmol/L Chloride 106 (98-107) mmol/L Carbon Dioxide 34 H (22-30) mmol/L Anion Gap 6 mmol/L BUN 28 H (7-17) mg/dL Creatinine 0.70 (0.52-1.04) mg/dL Est GFR (CKD-EPI)AfAm >90 (>60 ml/min/1.73 sqM) Est GFR (CKD-EPI)NonAf >90 (>60 ml/min/1.73 sqM) Glucose 101 H (74-99) mg/dL Estimated Ave Glu mg/dL Hemoglobin A1c (4.0-6.0) % Calcium 8.6 (8.4-10.2) mg/dL Magnesium 2.2 (1.6-2.3) mg/dL Total Bilirubin 0.5 (0.2-1.3) mg/dL AST 21 (14-36) U/L ALT 62 H (9-52) U/L Alkaline Phosphatase 82 (38-126) U/L Total Creatine Kinase <20 L (30-135) U/L CK-MB (CK-2) 1.6 (0.0-2.4) ng/mL CK-MB (CK-2) Rel Index Troponin I 0.019 (0.000-0.034) ng/mL NT-Pro-B Natriuret Pep pg/mL Total Protein 5.8 L (6.3-8.2) g/dL Albumin 3.4 L (3.5-5.0) g/dL 04/19/18 04/19/18 04/19/18 Range/Units 05:53 05:53 05:53 WBC (3.8-10.6) k/uL RBC (3.80-5.40) m/uL Hgb (11.4-16.0) gm/dL Hct (34.0-46.0) % MCV (80.0-100.0) fL MCH (25.0-35.0) pg MCHC (31.0-37.0) g/dL RDW (11.5-15.5) % Plt Count (150-450) k/uL Neutrophils % % Lymphocytes % % Monocytes % % Eosinophils % % Basophils % % Neutrophils # (1.3-7.7) k/uL Lymphocytes # (1.0-4.8) k/uL Monocytes # (0-1.0) k/uL Eosinophils # (0-0.7) k/uL Basophils # (0-0.2) k/uL Macrocytosis PT 9.4 (9.0-12.0) sec INR 0.9 (<1.2) APTT 18.3 L (22.0-30.0) sec Sodium (137-145) mmol/L Potassium (3.5-5.1) mmol/L Chloride (98-107) mmol/L Carbon Dioxide (22-30) mmol/L Anion Gap mmol/L BUN (7-17) mg/dL Creatinine (0.52-1.04) mg/dL Est GFR (CKD-EPI)AfAm (>60 ml/min/1.73 sqM) Est GFR (CKD-EPI)NonAf (>60 ml/min/1.73 sqM) Glucose (74-99) mg/dL Estimated Ave Glu mg/dL 120 Hemoglobin A1c 5.8 (4.0-6.0) % Calcium (8.4-10.2) mg/dL Magnesium (1.6-2.3) mg/dL Total Bilirubin (0.2-1.3) mg/dL AST (14-36) U/L ALT (9-52) U/L Alkaline Phosphatase (38-126) U/L Total Creatine Kinase (30-135) U/L CK-MB (CK-2) (0.0-2.4) ng/mL CK-MB (CK-2) Rel Index Troponin I (0.000-0.034) ng/mL NT-Pro-B Natriuret Pep 331 pg/mL Total Protein (6.3-8.2) g/dL Albumin (3.5-5.0) g/dL - Radiology Data Radiology results: report reviewed (Chest x-ray positive pneumonia), image reviewed Disposition Clinical Impression: Bronchitis, mucopurulent recurrent, COPD with acute exacerbation Disposition: ADMITTED IP TO THIS HOSP Condition: Fair Is patient prescribed a controlled substance at d/c from ED?: No
[2018-04-19] MEDS ORDERED: MORPHINE SULFATE 2 MG/ML SYRINGE IVP STA (06:01)
[2018-04-19] MEDS ORDERED: methylPREDNISolone SOD SUCCI 125 MG/2 ML VIAL IV STA (06:01)
[2018-04-19] MEDS ORDERED: ALBUTEROL NEBULIZED 2.5 MG/3 ML INHALATION STA (06:01)
[2018-04-19] MEDS ORDERED: LORazepam 2 MG/ML INJ IV STA (06:01)
[2018-04-19] MEDS ORDERED: AZITHROMYCIN 500 MG in DEXTROSE 5% IN WATER 250 ML IVPB STA ×2 (06:01)
[2018-04-19] MEDS ORDERED: IPRATROPIUM 0.5 MG/2.5 ML NEBU INHALATION STA (06:01)
[2018-04-19] MEDS ORDERED: SODIUM CHLORIDE 0.9% 1,000 ML IV STA (06:01)
[2018-04-19 06:29] LABS: Basophils % (A) 0 %; Eosinophils # (A) 0.1 k/uL (0-0.7); Eosinophils % (A) 1 %; HCT 38.8 % (34.0-46.0); HGB 12.2 gm/dL (11.4-16.0); Lymphocytes # (A) 3.7 k/uL (1.0-4.8); Lymphocytes % (A) 24 %; MCH 32.4 pg (25.0-35.0); MCHC 31.4 g/dL (31.0-37.0); MCV 103.3 fL (80.0-100.0); Macrocytosis Moderate; Mean Platelet Volume 7.6; Monocytes # (A) 0.9 k/uL (0-1.0); Monocytes % (A) 6 %; Neutrophils # (A) 10.5 k/uL (1.3-7.7); Neutrophils % (A) 68 %; Platelet Count 165 k/uL (150-450); RBC 3.76 m/uL (3.80-5.40); RDW 15.7 % (11.5-15.5); WBC 15.4 k/uL (3.8-10.6)
--- NOTE | 2018-04-19 06:33 | XR ---
EXAMINATION TYPE: XR chest 1V portable DATE OF EXAM: 04/19/2018 COMPARISON: NONE HISTORY: Short of breath TECHNIQUE: Single frontal view of the chest is obtained. FINDINGS: There is no heart failure. There is a minimal infiltrate at the left lung base. There are no hilar masses. Thoracic aorta is atheromatous. There are chest leads. IMPRESSION: New minimal infiltrate at the left lung base compared to old exam. No heart failure. Nor mal heart.
[2018-04-19 06:39] LABS: ALT 62 U/L (9-52); AST 21 U/L (14-36); Albumin 3.4 g/dL (3.5-5.0); Alkaline Phosphatase 82 U/L (38-126); Anion Gap 6 mmol/L; Blood Urea Nitrogen 28 mg/dL (7-17); Calcium 8.6 mg/dL (8.4-10.2); Carbon Dioxide 34 mmol/L (22-30); Chloride 106 mmol/L (98-107); Glucose 101 mg/dL (74-99); Magnesium 2.2 mg/dL (1.6-2.3); Potassium 4.4 mmol/L (3.5-5.1); Sodium 146 mmol/L (137-145); Total Bilirubin 0.5 mg/dL (0.2-1.3); Total Protein 5.8 g/dL (6.3-8.2)
[2018-04-19 06:43] LABS: INR 0.9 (<1.2); Prothrombin Time 9.4 sec (9.0-12.0)
[2018-04-19 06:45] LABS: Partial Thromboplastin Time 18.3 sec (22.0-30.0)
[2018-04-19 06:56] LABS: Creatine Kinase <20 U/L (30-135)
[2018-04-19] MEDS ORDERED: THIAMINE 100 MG/ML 2 ML VIAL IM STA (06:58)
[2018-04-19] MEDS ORDERED: LORazepam 2 MG/ML INJ IV PRN ×3 (06:58)
[2018-04-19] MEDS: IPRATROPIUM-ALBUTEROL 3 ML NEB INHALATION SCH ×4 (07:06→19:29)
[2018-04-19 07:09] LABS: Creatine Kinase MB 1.6 ng/mL (0.0-2.4); Troponin I 0.019 ng/mL (0.000-0.034)
[2018-04-19] MEDS: ENOXAPARIN 40 MG/0.4 ML SYRINGE SQ SCH (08:44)
[2018-04-19] MEDS: SODIUM CHLORIDE 0.9% 1,000 ML IV SCH (08:44)
[2018-04-19] MEDS: NICOTINE 21MG/24HR PATCH TRANSDERM SCH (08:45)
[2018-04-19] MEDS ORDERED: FUROSEMIDE 40 MG TAB PO PRN (09:14)
[2018-04-19] MEDS ORDERED: guaiFENesin 600 MG TABLET.ER PO PRN (09:14)
[2018-04-19] MEDS ORDERED: ARTIFICIAL TEARS-HYPROMELLOSE DROPS 15 ML BTL BOTH EYES PRN (09:14)
[2018-04-19] MEDS ORDERED: Etanercept [Enbrel] 50 MG SQ SCH (09:15)
[2018-04-19] MEDS ORDERED: IPRATROPIUM-ALBUTEROL 3 ML NEB INHALATION PRN (09:20)
[2018-04-19 12:18] LABS: Glucose,Whole Blood 144 mg/dL (75-99)
[2018-04-19] MEDS: methylPREDNISolone SOD SUCCI 125 MG/2 ML VIAL IV SCH ×3 (12:44→23:36)
[2018-04-19] MEDS: PANTOPRAZOLE 40 MG/10 ML VIAL IVP SCH (12:46)
[2018-04-19] MEDS: THIAMINE 100 MG TAB PO SCH (12:46)
[2018-04-19] MEDS: INSULIN ASPART 100 UNIT/ML 1 ML 10 ML VIAL SQ SCH ×3 (12:49→21:34)
[2018-04-19] MEDS ORDERED: NYSTATIN 100,000 UNIT/ML SUSP 500,000 UNIT/5 ML CUP PO SCH (13:00)
[2018-04-19] MEDS ORDERED: RX INFO: IV CONTRAST WAS GIVEN 1 EACH MISC MISCELLANE PRN (13:01)
[2018-04-19] MEDS: FLUCONAZOLE 100 MG TAB PO SCH (14:20)
[2018-04-19] MEDS ORDERED: FLUCONAZOLE IN NACL,ISO-OSM 200 MG in SALINE 1 100ML.BAG IVPB SCH (15:30)
--- NOTE | 2018-04-19 16:08 | P.CNPUL ---
History of Present Illness Consult date: 04/19/18 Requesting physician: Liliana Calixto Reason for consult: dyspnea, COPD Chief complaint: Shortness of breath, cough, congestion History of present illness: This is a very pleasant 63-year-old female patient who follows with Dr. Mijares as her primary care physician. She has a history of rheumatoid arthritis, hypertension, daily alcohol use, obesity. Chest has a history of severe Gold stage IV chronic obstructive pulmonary disease. Her FEV1 value is 27% of predicted. Now oxygen dependent. Continue and ongoing tobacco dependence. She has had ongoing issues with cost in the ability to pay for her inhalers in the outpatient setting. She has had multiple admissions for exacerbation of her COPD as recently as last week and had undergone a bronchoscopy with BAL which revealed no growth other than Erica. She was discharged home on 2017. She presented again here early this morning to the emergency room with recurrent episode of increasing shortness of breath, cough and congestion. Chest x-ray shows minimal infiltrate along the lung base. White count 15.4. Hemoglobin 12.2. Creatinine 0.70. Bicarb 30. She's been afebrile. Slightly tachycardic. Maintain O2 saturations in the mid to upper 90s on 2 L/m per nasal cannula. Review of Systems Constitutional: Reports chronic pain, Reports fatigue, Reports weakness, Reports weight gain Eyes: denies blurred vision, denies decreased vision Ears: deny: decreased hearing Ears, nose, mouth and throat: Reports headache, Reports hoarseness, Reports mouth pain Cardiovascular: Reports decreased exercise tolerance, Reports dyspnea on exertion, Reports rapid heart beat, Reports shortness of breath Respiratory: Reports cough, Reports cough with sputum, Reports dyspnea, Reports home oxygen, Reports wheezing Gastrointestinal: Denies abdominal pain, Denies diarrhea, Denies nausea, Denies vomiting Genitourinary: Denies dysuria, Denies hematuria Musculoskeletal: Reports limitation of motion, Reports low back pain Integumentary: Reports change in hair/nails, Reports color changes Neurological: Reports weakness Psychiatric: Reports anxiety, Reports depression Endocrine: Reports as per HPI Hematologic/Lymphatic: Reports as per HPI Allergic/Immunologic: Reports as per HPI Past Medical History Past Medical History: Cancer, COPD, Hypertension, Pneumonia, Rheumatoid Arthritis (RA) Additional Past Medical History / Comment(s): Pt recently admitted to [facility] on 04/03/18 with aucte exacerbation COPD with purulent tracheobronchitis, advanced COPD , chronic hypercapnic and hypoxic respiratory failure. Other hx: Home O2 at 3L/NC ATC lately, vulvar cancer with removal, appendix cancer with removal, osteoporosis, past rectal bleed, colitis, benign colon polyp, gout bilateral feet, UTIs, seasonal allergies/sinus problems. History of Any Multi-Drug Resistant Organisms: None Reported Past Surgical History: Appendectomy, Hysterectomy, Joint Replacement Additional Past Surgical History / Comment(s): 04/10/18 bronchoscopy and prior bronch, right knee replacement, surgery to remove vulva cancer, EGD/colonoscopy , lasik eye surgery for bilateral cataracts, right colectomy r/t SBO (wound dehiscence/closure). Past Anesthesia/Blood Transfusion Reactions: No Reported Reaction Additional Past Anesthesia/Blood Transfusion Reaction / Comment(s): Claustrophobia Smoking Status: Former smoker - Past Family History Father Family Medical History: Cancer Additional Family Medical History / Comment(s): COLON Mother Family Medical History: Cancer Additional Family Medical History / Comment(s): ESOPHAGUS Sister(s) Family Medical History: Cancer Additional Family Medical History / Comment(s): CERVICAL Medications and Allergies Home Medications Medication Instructions Recorded Confirmed Type Benazepril HCl 20 mg PO QAM 01/24/16 04/19/18 History Furosemide [Lasix] 40 mg PO DAILY PRN 05/31/17 04/19/18 History Etanercept [Enbrel] 50 mg SQ Q14D 07/12/17 04/19/18 History HYDROcodone/APAP 10-325MG [[place] 1 tab PO TID PRN 12/29/17 04/19/18 History 10-325] Budesonide [Pulmicort] 0.5 mg INHALATION RT-BID 04/02/18 04/19/18 History Dextroamphetamine/Amphetamine 15 mg PO QAM 04/02/18 04/19/18 History [Adderall Xr] Formoterol Fumarate [Perforomist] 20 mcg INHALATION RT-BID 04/02/18 04/19/18 History Polyethylene Glycol 3350 [Miralax] 17 gm PO DAILY 04/02/18 04/19/18 History diphenhydrAMINE [Benadryl] 50 mg PO HS 04/02/18 04/19/18 History Artificial Tears-Hypromellose 1 drops BOTH EYES TID PRN bottle 04/12/18 Rx [Artificial Tear Drops] Montelukast [Singulair] 10 mg PO HS #30 tab 04/12/18 04/19/18 Rx Nystatin 100,000 Unit/ml Susp 500,000 unit PO QID #100 ml 04/12/18 04/19/18 Rx [Mycostatin Oral Susp] Azithromycin [Zithromax] 500 mg PO DAILY #10 tab 04/14/18 04/19/18 Rx Ibuprofen [Motrin] 800 mg PO Q6H PRN 04/19/18 04/19/18 History Ipratropium-Albuterol Nebulize 3 ml INHALATION RT-Q4H PRN 04/19/18 04/19/18 History [Duoneb 0.5 mg-3 mg/3 ml Soln] Multivit-Min/FA/Lycopen/Lutein 1 tab PO DAILY 04/19/18 04/19/18 History [Centrum Silver Tablet] Thiamine [Vitamin B-1] 100 mg PO DAILY@1200 04/19/18 04/19/18 History guaiFENesin [Mucinex] 600 mg PO Q12HR PRN 04/19/18 04/19/18 History predniSONE See Taper PO DAILY 04/19/18 04/19/18 History Allergies Allergy/AdvReac Type Severity Reaction Status Date / Time infliximab [From Remicade] Allergy Dyspnea/HIV Verified 04/19/18 07:24 ES procaine [From Novocain] Allergy Unknown Verified 04/19/18 07:24 propoxyphene HCl Allergy Unknown Verified 04/19/18 07:24 [From Darvon] Physical Exam Vitals: Vital Signs Temp Pulse Pulse Resp BP BP Pulse Ox 04/19/18 14:38 98.7 F 107 H 22 141/66 97 04/19/18 11:57 108 H 04/19/18 11:33 104 H 04/19/18 08:23 98.0 F 100 20 132/71 96 04/19/18 07:50 98.3 F 04/19/18 07:30 113 H 22 135/71 95 04/19/18 07:06 114 H 04/19/18 06:36 111 H 22 165/90 97 04/19/18 06:29 109 H 04/19/18 06:20 23 04/19/18 06:11 112 H 04/19/18 05:48 99 F 120 H 32 H 206/97 96 Intake and Output 04/19/18 04/19/18 04/19/18 06:59 14:59 22:59 Intake Total 240 Balance 240 Intake: Oral 240 Other: Voiding Method Toilet # Voids 2 # Bowel Movements 0 Weight 71.214 kg - Constitutional General appearance: mild distress, morbidly obese - EENT Eyes: EOMI, PERRLA ENT: hearing grossly normal Ears: bilateral: normal - Neck Neck: normal ROM Carotids: bilateral: upstroke normal Thyroid: bilateral: normal size - Respiratory Respiratory: bilateral: diminished, wheezing, prolonged expiration - Cardiovascular Rhythm: regular Heart sounds: normal: S1, S2 - Gastrointestinal General gastrointestinal: no organomegaly, soft, no tenderness - Integumentary Integumentary: flushed, normal turgor - Neurologic Neurologic: CNII-XII intact - Musculoskeletal Musculoskeletal: generalized weakness - Psychiatric Psychiatric: A&O x's 3, appropriate affect, intact judgment & insight Results - Laboratory Findings CBC and BMP: 04/19/18 05:53 04/19/18 05:53 PT/INR, D-dimer PT 9.4 sec (9.0-12.0) 04/19/18 05:53 INR 0.9 (<1.2) 04/19/18 05:53 Abnormal lab findings: Abnormal Labs 04/19/18 04/19/18 04/19/18 05:53 05:53 05:53 WBC 15.4 H RBC 3.76 L MCV 103.3 H RDW 15.7 H Neutrophils # 10.5 H APTT Sodium 146 H Carbon Dioxide 34 H BUN 28 H Glucose 101 H POC Glucose (mg/dL) ALT 62 H Total Creatine Kinase <20 L Total Protein 5.8 L Albumin 3.4 L 04/19/18 04/19/18 05:53 11:53 WBC RBC MCV RDW Neutrophils # APTT 18.3 L Sodium Carbon Dioxide BUN Glucose POC Glucose (mg/dL) 144 H ALT Total Creatine Kinase Total Protein Albumin - Diagnostic Findings Chest x-ray: image reviewed Assessment and Plan Assessment: Impression: #1 Acute on chronic hypoxic respiratory failure secondary to an acute exacerbation of chronic obstructive pulmonary disease. #2 Frequent admissions for COPD exacerbations. #3 Severe advanced Gold stage IV chronic obstructive pulmonary disease with baseline FEV1 value 27% of predicted. #4 Acute on chronic hypercapnic respiratory failure secondary to above. #5 Chronic and ongoing tobacco dependence. #6 Rheumatoid arthritis. #7 Hypertension. #8 History of depression. #9 History of right colectomy in June 2017 for small bowel obstruction with subsequent wound dehiscence and reclosure. #10 History of vulvar cancer with resection, hysterectomy. #11 Daily alcohol use. Plan: The patient was seen and evaluated by Dr. Goodman. Chest x-ray and labs were reviewed. BAL revealed no positive cultures other than Erica. Patient does have some candidiasis. We'll initiate Diflucan. Continue DuoNeb inhalations 4 times a day and when necessary, Pulmicort and Perforomist inhalations twice a day, IV Solu-Medrol, Mucinex, azithromycin. She is again educated regarding the importance of complete smoking cessation. Habitrol patches in place. She is educated regarding the importance of excessive alcohol use. See well protocol is in place. Dr. Goodman did have a lengthy discussion regarding the patient's recurrent COPD exacerbations and hospitalizations. She has been maintained on maximum medications in the outpatient setting. She was still on prednisone and antibiotics prior to this admission. She may benefit from subacute rehabilitation upon discharge. She seems willing. She again is having issues with cost of her medications in the outpatient setting. Social work consult. We will continue to follow and make further recommendations based on her clinical status. I, the cosigning physician, performed a history & physical examination of the patient. Lungs sounds bilateral end expiratory wheeze. Few scattered rhonchi. Crackles in left posterior base. Maintaining good O2 saturations in the 90s on 2 L/m per nasal cannula. I discussed the assessment and plan of care with my nurse practitioner, Symone Ohara. I attest to the above note as dictated by her. Time with Patient: Greater than 30
--- NOTE | 2018-04-19 16:59 | HP ---
HISTORY AND PHYSICAL DATE OF SERVICE: 04/19/2018 CHIEF COMPLAINT: Shortness of breath. HISTORY OF PRESENT ILLNESS: This 63-year-old woman with a past medical history of advanced COPD, history of rheumatoid arthritis, history of hypertension, history of pneumonia, history of chronic hypoxic respiratory failure, history of appendectomy, hysterectomy, ADD/ADHD, anxiety, depression, is being followed by Dr. Mijares as well as Dr. Goodman in the outpatient setting. The patient was complaining of shortness of breath. The patient was recently admitted with COPD, acute exacerbation. The patient has advanced COPD. Patient also had a recent bronchoscopy. Erica was grown from the cultures; otherwise cultures were negative. Because of increasing difficulty, the patient came to [facility] and was admitted for further evaluation and treatment. At the time of admission the white count was 15.4. Pressure was slightly elevated and a chest x-ray done showed a new minimal infiltrate in the left lung base. Otherwise there is no history of any fever, rigor or chills at this time. PAST MEDICAL HISTORY: 1. History of COPD. 2. History of recent bronchoscopy. 3. History of hypertension. 4. History of rheumatoid arthritis. 5. History of adenoidectomy. 6. ADD, ADHD. 7. Anxiety. 8. Depression. HOME MEDICATIONS: 1. Prednisone taper daily. 2. Mucinex 600 mg p.o. b.i.d. 3. Benadryl 50 mg at bedtime. 4. Vitamin B1 100 mg p.o. daily. 5. MiraLAX 17 grams daily. 6. Mycostatin half million units p.o. q.i.d. 7. Multivitamins 1 p.o. daily. 8. Singulair 10 mg p.o. at bedtime. 9. DuoNeb q.4 p.r.n. 10.[place] 10 mg t.i.d. p.r.n. 11.Lasix 40 mg daily p.r.n. 12.Perforomist 20 mcg b.i.d. 13.Enbrel 50 mg subcutaneously b.i.d. 14.Adderall XR 15 mg p.o. each morning. 15.Pulmicort 0.5 mg b.i.d. 16.Benazepril 20 mg each morning. 17.Zithromax 500 mg p.o. daily. 18.Artificial Tears t.i.d. p.r.n. ALLERGIES: 1. REMICADE. 2. NOVOCAINE. 3. DARVON. FAMILY HISTORY: History of colon cancer in the family. SOCIAL HISTORY: Previous history of smoking. Occasional alcohol intake. REVIEW OF SYSTEMS: ENT: No diminished hearing. No diminished vision. CARDIOVASCULAR SYSTEM: As mentioned earlier. RESPIRATORY SYSTEM: As mentioned earlier. GI: No nausea, vomiting. : No dysuria or retention. NERVOUS SYSTEM: No numbness, weakness. ALLERGY/IMMUNOLOGY: No asthma, hayfever. MUSCULOSKELETAL: As mentioned earlier. HEMATOLOGY/ONCOLOGY: No history of anemia. ENDOCRINE: No history of diabetes, hypothyroidism. CONSTITUTIONAL: As mentioned earlier. DERMATOLOGY: Negative. RHEUMATOLOGY: Negative. PSYCHIATRY: As mentioned earlier. PHYSICAL EXAMINATION: Patient is alert, oriented x3. Pulse is 107, blood pressure 141/66, respiration 22, temperature 98.7, pulse ox 97% on 2 L. HEENT: Conjunctivae normal. Oral mucosa moist. NECK: No jugular venous distention. No carotid bruit. No lymph node enlargement. Accessory muscles of respiration acting. Otherwise, patient is extremely short of breath. CARDIOVASCULAR SYSTEM: S1, S2 muffled. No S3. No S4. RESPIRATORY SYSTEM: Breath sounds diminished at the bases. Scattered rhonchi and crackles and expiratory wheezing and prolongation. Crackles also heard. ABDOMEN: Soft, nontender. No mass palpable. LEGS: No edema. No swelling. NERVOUS SYSTEM: Higher functions as mentioned earlier. Moves all 4 limbs. No focal motor or sensory deficit. LYMPHATICS: No lymph node palpable in neck, axillae or groin. SKIN: No ulcer, rash, bleeding. LABS: WBC 15.4, hemoglobin 12.2. ASSESSMENT: 1. Chronic obstructive pulmonary disease, acute exacerbation, and possible left lower lobe bronchopneumonia. 2. Increased white count. 3. Increased sodium. 4. History of hypertension. 5. History of pneumonia. 6. History of rheumatoid arthritis. 7. Chronic hypoxic respiratory failure, on 3 L nasal cannula. 8. History of appendicular cancer. 9. History of osteoporosis. 10.History of gout. 11.History of degenerative joint disease. 12.History of attention deficit disorder, attention deficit hyperactivity disorder. 13.Anxiety. 14.Depression. 15.History of nicotine dependence. RECOMMENDATIONS AND DISCUSSION: In this 63-year-old woman who presented with multiple complex medical issues, we will monitor the patient closely, continue the current medications, continue symptomatic treatment. Will optimize bronchodilator treatment. Otherwise closely monitor with Dr. Goodman. Empiric antibiotics will be initiated. Resume the home medications. DVT prophylaxis. Guarded prognosis because of multiple complex medical issues. Further recommendations to follow. A copy of this dictation is being forwarded to Dr. Mijares. MMSHAKIRAL / TYEN: [id number] /
[2018-04-19] MEDS ORDERED: THIAMINE 100 MG TAB PO SCH (17:00)
[2018-04-19 17:16] LABS: Glucose,Whole Blood 203 mg/dL (75-99)
[2018-04-19] MEDS: cefTRIAXone IN SWFI 1,000 MG/10 ML SYRINGE IVP SCH (17:17)
[2018-04-19 18:40] LABS: Hemoglobin A1C 5.8 % (4.0-6.0)
--- NOTE | 2018-04-19 18:41 | CT ---
EXAMINATION TYPE: CT chest w con DATE OF EXAM: 04/19/2018 COMPARISON: 08/10/2016 HISTORY: Cough and shortness of breath. CT DLP: 421.7 mGycm Automated exposure control for dose reduction was used. CONTRAST: CT scan of the chest is performed with IV Contrast, patient injected with 100ml mL of Isovue 300. FINDINGS: The lungs are clear of consolidation. There is no evidence of a pulmonary mass. There is a minimal 5 mm reticular low density area in the subpleural lateral right upper lobe. There is no pleural effusio n. There is no pericardial effusion. There are no hilar masses. There is no mediastinal adenopathy. Thor acic aorta has normal size. There is some spurring in the thoracic spine. There is 30% compression de formity of T12 vertebra. There is 5% wedging of T11. There is anterior wedging of T8 and T7 vertebra up to 50%. IMPRESSION: Multiple thoracic compression fractures are new compared to old CT scan. Stable tiny nod ular density in the right upper lobe.
[2018-04-19] MEDS: FORMOTEROL FUMARATE 20 MCG/2 ML NEBU INHALATION SCH (19:29)
[2018-04-19] MEDS: BUDESONIDE 0.5 MG/2 ML NEBU INHALATION SCH (19:29)
[2018-04-19] MEDS: HYDROcodone/APAP 10-325MG 1 EACH TAB PO PRN (20:24)
[2018-04-19 20:59] LABS: Glucose,Whole Blood 103 mg/dL (75-99)
[2018-04-19] MEDS: MONTELUKAST 10 MG TAB PO SCH (21:50)
[2018-04-19] MEDS: diphenhydrAMINE 25 MG CAP PO SCH (21:50)
[2018-04-19] MEDS: IBUPROFEN 400 MG TAB PO PRN (23:36)
[2018-04-20] MEDS: methylPREDNISolone SOD SUCCI 125 MG/2 ML VIAL IV SCH ×4 (06:12→23:37)
[2018-04-20 07:17] LABS: Glucose,Whole Blood 123 mg/dL (75-99)
[2018-04-20 08:16] LABS: Basophils % (A) 0 %; Eosinophils % (A) 0 %; HCT 32.7 % (34.0-46.0); HGB 10.5 gm/dL (11.4-16.0); Lymphocytes # (A) 0.6 k/uL (1.0-4.8); Lymphocytes % (A) 4 %; MCH 32.9 pg (25.0-35.0); MCV 102.8 fL (80.0-100.0); Macrocytosis Slight; Mean Platelet Volume 7.9; Monocytes # (A) 0.4 k/uL (0-1.0); Monocytes % (A) 3 %; Neutrophils # (A) 11.9 k/uL (1.3-7.7); Neutrophils % (A) 92 %; Platelet Count 151 k/uL (150-450); RBC 3.18 m/uL (3.80-5.40); RDW 15.6 % (11.5-15.5); WBC 12.9 k/uL (3.8-10.6)
[2018-04-20 08:25] LABS: Anion Gap 4 mmol/L; Blood Urea Nitrogen 27 mg/dL (7-17); Calcium 8.7 mg/dL (8.4-10.2); Carbon Dioxide 33 mmol/L (22-30); Chloride 104 mmol/L (98-107); Glucose 112 mg/dL (74-99); Potassium 4.4 mmol/L (3.5-5.1); Sodium 141 mmol/L (137-145)
[2018-04-20] MEDS: POLYETHYLENE GLYCOL 3350 17 GM POWD.PACK PO SCH (08:29)
[2018-04-20] MEDS: PANTOPRAZOLE 40 MG/10 ML VIAL IVP SCH (08:29)
[2018-04-20] MEDS: ENOXAPARIN 40 MG/0.4 ML SYRINGE SQ SCH (08:29)
[2018-04-20] MEDS: cefTRIAXone IN SWFI 1,000 MG/10 ML SYRINGE IVP SCH (08:29)
[2018-04-20] MEDS: LISINOPRIL 20 MG TAB PO SCH (08:30)
[2018-04-20] MEDS: NICOTINE 21MG/24HR PATCH TRANSDERM SCH (08:30)
[2018-04-20] MEDS: FLUCONAZOLE 100 MG TAB PO SCH (08:30)
[2018-04-20] MEDS: INSULIN ASPART 100 UNIT/ML 1 ML 10 ML VIAL SQ SCH ×4 (08:40→21:22)
[2018-04-20] MEDS: SODIUM CHLORIDE 0.9% 1,000 ML IV SCH (08:41)
[2018-04-20] MEDS: BUDESONIDE 0.5 MG/2 ML NEBU INHALATION SCH ×2 (08:54→19:43)
[2018-04-20] MEDS: IPRATROPIUM-ALBUTEROL 3 ML NEB INHALATION SCH ×4 (08:54→19:43)
[2018-04-20] MEDS: FORMOTEROL FUMARATE 20 MCG/2 ML NEBU INHALATION SCH ×2 (08:54→19:43)
[2018-04-20] MEDS ORDERED: AZITHROMYCIN 500 MG in DEXTROSE 5% IN WATER 250 ML IVPB SCH ×2 (09:00)
[2018-04-20] MEDS: DEXTROAMPHETAMINE PO SCH (10:30)
[2018-04-20] MEDS: AMPHETAMINE PO SCH (10:30)
[2018-04-20] MEDS: THIAMINE 100 MG TAB PO SCH (11:04)
[2018-04-20] MEDS: MULTIVITAMINS, THERA 1 EACH TAB PO SCH (11:04)
--- NOTE | 2018-04-20 11:16 | P.PN ---
Subjective Progress Note Date: 04/20/18 Principal diagnosis: Acute exacerbation of chronic obstructive pulmonary disease This is a very pleasant 63-year-old female patient who follows with Dr. Mijares as her primary care physician. She has a history of rheumatoid arthritis, hypertension, daily alcohol use, obesity. Chest has a history of severe Gold stage IV chronic obstructive pulmonary disease. Her FEV1 value is 27% of predicted. Now oxygen dependent. Continue and ongoing tobacco dependence. She has had ongoing issues with cost in the ability to pay for her inhalers in the outpatient setting. She has had multiple admissions for exacerbation of her COPD as recently as last week and had undergone a bronchoscopy with BAL which revealed no growth other than Erica. She was discharged home on 2017. She presented again here early this morning to the emergency room with recurrent episode of increasing shortness of breath, cough and congestion. Chest x-ray shows minimal infiltrate along the lung base. White count 15.4. Hemoglobin 12.2. Creatinine 0.70. Bicarb 30. She's been afebrile. Slightly tachycardic. Maintain O2 saturations in the mid to upper 90s on 2 L/m per nasal cannula. The patient is seen again today 04/20/2018 in follow-up on the regular medical floor. She remains awake and alert in no acute distress. She is breathing better today as compared to yesterday. Still not back to her baseline. She is maintaining O2 saturation in the low 90s on room air. She's been afebrile. Computed tomography scan of the chest reveals no pulmonary abnormalities other than a stable tiny nodular density in the right upper lobe. There is multiple thoracic compression fractures noted. White count 12.9. Hemoglobin 10.5. Creatinine 0.62. He is continued on IV Solu-Medrol, bronchodilators, antibiotics in the form of azithromycin. Objective - Vital Signs Vital signs: Vital Signs Temp 97.5 F L 04/20/18 05:50 Pulse 102 H 04/20/18 09:04 Resp 20 04/20/18 08:54 BP 174/79 04/20/18 05:50 Pulse Ox 92 L 04/20/18 05:50 Intake & Output 04/19/18 04/20/18 04/20/18 18:59 06:59 18:59 Intake Total 240 Balance 240 Intake: Oral 240 Other: Voiding Method Toilet # Voids 2 2 # Bowel Movements 0 - Exam - Constitutional General appearance: mild distress, morbidly obese - EENT Eyes: EOMI, PERRLA ENT: hearing grossly normal Ears: bilateral: normal - Neck Neck: normal ROM Carotids: bilateral: upstroke normal Thyroid: bilateral: normal size - Respiratory Respiratory: bilateral: diminished, wheezing, prolonged expiration - Cardiovascular Rhythm: regular Heart sounds: normal: S1, S2 - Gastrointestinal General gastrointestinal: no organomegaly, soft, no tenderness - Integumentary Integumentary: flushed, normal turgor - Neurologic Neurologic: CNII-XII intact - Musculoskeletal Musculoskeletal: generalized weakness - Psychiatric Psychiatric: A&O x's 3, appropriate affect, intact judgment & insight - Labs CBC & Chem 7: 04/20/18 07:51 04/20/18 07:51 Labs: Abnormal Lab Results - Last 24 Hours (Table) 04/19/18 04/19/18 04/19/18 Range/Units 11:53 17:00 20:54 WBC (3.8-10.6) k/uL RBC (3.80-5.40) m/uL Hgb (11.4-16.0) gm/dL Hct (34.0-46.0) % MCV (80.0-100.0) fL RDW (11.5-15.5) % Neutrophils # (1.3-7.7) k/uL Lymphocytes # (1.0-4.8) k/uL Carbon Dioxide (22-30) mmol/L BUN (7-17) mg/dL Glucose (74-99) mg/dL POC Glucose (mg/dL) 144 H 203 H 103 H (75-99) mg/dL 04/20/18 04/20/18 04/20/18 Range/Units 07:00 07:51 07:51 WBC 12.9 H (3.8-10.6) k/uL RBC 3.18 L (3.80-5.40) m/uL Hgb 10.5 L (11.4-16.0) gm/dL Hct 32.7 L (34.0-46.0) % MCV 102.8 H (80.0-100.0) fL RDW 15.6 H (11.5-15.5) % Neutrophils # 11.9 H (1.3-7.7) k/uL Lymphocytes # 0.6 L (1.0-4.8) k/uL Carbon Dioxide 33 H (22-30) mmol/L BUN 27 H (7-17) mg/dL Glucose 112 H (74-99) mg/dL POC Glucose (mg/dL) 123 H (75-99) mg/dL Assessment and Plan Assessment: Impression: #1 Acute on chronic hypoxic respiratory failure secondary to an acute exacerbation of chronic obstructive pulmonary disease. #2 Frequent admissions for COPD exacerbations. #3 Severe advanced Gold stage IV chronic obstructive pulmonary disease with baseline FEV1 value 27% of predicted. #4 Acute on chronic hypercapnic respiratory failure secondary to above. #5 Chronic and ongoing tobacco dependence. #6 Rheumatoid arthritis. #7 Hypertension. #8 History of depression. #9 History of right colectomy in June 2017 for small bowel obstruction with subsequent wound dehiscence and reclosure. #10 History of vulvar cancer with resection, hysterectomy. #11 Daily alcohol use. Plan: The patient was seen and evaluated by Dr. Goodman. Computed tomography scan was reviewed with the patient. No acute pulmonary abnormalities and she was reassured. We'll continue with her current COPD treatment for now. Switch to oral azithromycin in the morning. Increase her activity as tolerated. We will continue to follow and make further recommendations based on her clinical status. I, the cosigning physician, performed a history & physical examination of the patient. Lungs sounds bilateral end expiratory wheeze. Few scattered rhonchi. Crackles in left posterior base. Maintaining good O2 saturations in the 90s on 2 L/m per nasal cannula. I discussed the assessment and plan of care with my nurse practitioner, Symone Ohara. I attest to the above note as dictated by her.
[2018-04-20 12:01] LABS: Glucose,Whole Blood 193 mg/dL (75-99)
[2018-04-20] MEDS: HYDROcodone/APAP 10-325MG 1 EACH TAB PO PRN ×2 (13:26→23:58)
[2018-04-20 16:52] LABS: Glucose,Whole Blood 215 mg/dL (75-99)
[2018-04-20 20:43] LABS: Glucose,Whole Blood 135 mg/dL (75-99)
[2018-04-20] MEDS: diphenhydrAMINE 25 MG CAP PO SCH (21:22)
[2018-04-20] MEDS: MONTELUKAST 10 MG TAB PO SCH (21:22)
--- NOTE | 2018-04-20 21:30 | PN ---
PROGRESS NOTE DATE OF SERVICE: 04/20/2018 This 63-year-old woman was admitted with shortness of breath, being closely monitored. The patient also had COPD acute exacerbation as well as possible left lower lobe bronchopneumonia. Dr. Goodman is following the patient closely. The patient has less significant wheezing at this time. No chest pain. No palpitation. EXAM: Alert and oriented x3. Pulse is 109, blood pressure 156/77, respirations 22, temperature 97.2, pulse ox 98% on room air. HEENT: Conjunctivae normal. NECK: No jugular venous distention. CARDIOVASCULAR: S1, S2 muffled. RESPIRATORY: Breath sounds diminished in the bases. A few scattered rhonchi and expiratory wheezing, crackles. ABDOMEN: Soft, nontender. LEGS: No edema. No swelling. LABS: WBC 12, hemoglobin is 10.5. Glucose noted. ASSESSMENT: 1. Chronic obstructive pulmonary disease acute exacerbation with possibly left lower bronchopneumonia, gram-negative. 2. Increased WBC. 3. Increased sodium. 4. History of hypertension. 5. History of pneumonia. 6. History rheumatoid arthritis. 7. Chronic hypoxic respiratory failure on 3L nasal cannula. 8. History of appendicular cancer. 9. History of osteoporosis. 10.History of gout. 11.History of degenerative joint disease. 12.History of attention deficit disorder, attention deficit hyperactivity disorder. 13.History of anxiety. 14.History of depression. 15.History of nicotine dependence. RECOMMENDATIONS AND DISCUSSION: Recommend to continue current medical management and symptomatic treatment. Continue with the broad-spectrum IV antibiotics, bronchodilators. The patient is also on high- dose IV steroids. Otherwise, continue to monitor. Bronchodilators. Further recommendations to follow. See orders for further details. MMODL / IJN: [id number] /
[2018-04-20] MEDS: LORazepam 1 MG TAB PO PRN (23:58)
[2018-04-21] MEDS: methylPREDNISolone SOD SUCCI 125 MG/2 ML VIAL IV SCH ×3 (05:43→17:33)
[2018-04-21 07:13] LABS: Glucose,Whole Blood 131 mg/dL (75-99)
[2018-04-21] MEDS: IPRATROPIUM-ALBUTEROL 3 ML NEB INHALATION SCH ×4 (08:36→19:19)
[2018-04-21] MEDS: BUDESONIDE 0.5 MG/2 ML NEBU INHALATION SCH ×2 (08:36→19:19)
[2018-04-21] MEDS: FORMOTEROL FUMARATE 20 MCG/2 ML NEBU INHALATION SCH ×2 (08:36→19:19)
[2018-04-21] MEDS: LISINOPRIL 20 MG TAB PO SCH (10:02)
[2018-04-21] MEDS: THIAMINE 100 MG TAB PO SCH (10:02)
[2018-04-21] MEDS: AZITHROMYCIN 500 MG TAB PO SCH (10:02)
[2018-04-21] MEDS: MULTIVITAMINS, THERA 1 EACH TAB PO SCH (10:02)
[2018-04-21] MEDS: ENOXAPARIN 40 MG/0.4 ML SYRINGE SQ SCH (10:02)
[2018-04-21] MEDS: POLYETHYLENE GLYCOL 3350 17 GM POWD.PACK PO SCH (10:03)
[2018-04-21] MEDS: INSULIN ASPART 100 UNIT/ML 1 ML 10 ML VIAL SQ SCH ×4 (10:03→20:56)
[2018-04-21] MEDS: PANTOPRAZOLE 40 MG/10 ML VIAL IVP SCH (10:03)
[2018-04-21] MEDS: FLUCONAZOLE 100 MG TAB PO SCH (10:03)
[2018-04-21] MEDS: AMPHETAMINE PO SCH (10:04)
[2018-04-21] MEDS: DEXTROAMPHETAMINE PO SCH (10:04)
[2018-04-21] MEDS: SODIUM CHLORIDE 0.9% 1,000 ML IV SCH (10:04)
[2018-04-21] MEDS: NICOTINE 21MG/24HR PATCH TRANSDERM SCH (10:05)
[2018-04-21 11:40] LABS: Anisocytosis Slight; Basophils % (A) 0 %; Eosinophils % (A) 0 %; HCT 35.5 % (34.0-46.0); HGB 11.2 gm/dL (11.4-16.0); Lymphocytes # (A) 0.4 k/uL (1.0-4.8); Lymphocytes % (A) 2 %; MCH 32.9 pg (25.0-35.0); MCHC 31.6 g/dL (31.0-37.0); MCV 104.1 fL (80.0-100.0); Macrocytosis Moderate; Mean Platelet Volume 7.5; Monocytes # (A) 0.3 k/uL (0-1.0); Monocytes % (A) 2 %; Neutrophils # (A) 16.7 k/uL (1.3-7.7); Neutrophils % (A) 96 %; Platelet Count 177 k/uL (150-450); RBC 3.41 m/uL (3.80-5.40); RDW 16.4 % (11.5-15.5); WBC 17.5 k/uL (3.8-10.6)
[2018-04-21 11:54] LABS: Glucose,Whole Blood 199 mg/dL (75-99)
[2018-04-21 12:00] LABS: Anion Gap 5 mmol/L; Blood Urea Nitrogen 31 mg/dL (7-17); Calcium 8.8 mg/dL (8.4-10.2); Carbon Dioxide 31 mmol/L (22-30); Chloride 105 mmol/L (98-107); Glucose 192 mg/dL (74-99); Potassium 4.4 mmol/L (3.5-5.1); Sodium 141 mmol/L (137-145)
--- NOTE | 2018-04-21 15:16 | P.PN ---
Subjective Progress Note Date: 04/21/18 This is a very pleasant 63-year-old female patient who follows with Dr. Mijares as her primary care physician. She has a history of rheumatoid arthritis, hypertension, daily alcohol use, obesity. Chest has a history of severe Gold stage IV chronic obstructive pulmonary disease. Her FEV1 value is 27% of predicted. Now oxygen dependent. Continue and ongoing tobacco dependence. She has had ongoing issues with cost in the ability to pay for her inhalers in the outpatient setting. She has had multiple admissions for exacerbation of her COPD as recently as last week and had undergone a bronchoscopy with BAL which revealed no growth other than Erica. She was discharged home on 2017. She presented again here early this morning to the emergency room with recurrent episode of increasing shortness of breath, cough and congestion. Chest x-ray shows minimal infiltrate along the lung base. White count 15.4. Hemoglobin 12.2. Creatinine 0.70. Bicarb 30. She's been afebrile. Slightly tachycardic. Maintain O2 saturations in the mid to upper 90s on 2 L/m per nasal cannula. The patient is seen again today 04/20/2018 in follow-up on the regular medical floor. She remains awake and alert in no acute distress. She is breathing better today as compared to yesterday. Still not back to her baseline. She is maintaining O2 saturation in the low 90s on room air. She's been afebrile. Computed tomography scan of the chest reveals no pulmonary abnormalities other than a stable tiny nodular density in the right upper lobe. There is multiple thoracic compression fractures noted. White count 12.9. Hemoglobin 10.5. Creatinine 0.62. He is continued on IV Solu-Medrol, bronchodilators, antibiotics in the form of azithromycin. On the patient is looking well. No specific complaints. Less short of breath compared to yesterday. Slowly improving. No significant chest pain. A bit lethargic and sleepy. No other significant events overnight. No fever or chills. She was able to give me a sputum sample for analysis and and the cultures still pending for now. Objective - Vital Signs Vital signs: Vital Signs Temp 97.8 F 04/21/18 05:35 Pulse 100 04/21/18 11:41 Resp 18 04/21/18 08:00 BP 144/73 04/21/18 05:35 Pulse Ox 95 04/21/18 08:40 Intake & Output 04/20/18 04/21/18 04/21/18 18:59 06:59 18:59 Intake Total 1360 Balance 1360 Intake: Intake, IV Titration 160 Amount Sodium Chloride 0.9% 1, 160 000 ml @ 10 mls/hr IV . Q24H LATESHA Rx#:[id number] Oral 1200 Other: # Voids 1 2 3 - Exam - Exam - Constitutional General appearance: mild distress, morbidly obese - EENT Eyes: EOMI, PERRLA ENT: hearing grossly normal Ears: bilateral: normal - Neck Neck: normal ROM Carotids: bilateral: upstroke normal Thyroid: bilateral: normal size - Respiratory Respiratory: bilateral: diminished, wheezing, prolonged expiration - Cardiovascular Rhythm: regular Heart sounds: normal: S1, S2 - Gastrointestinal General gastrointestinal: no organomegaly, soft, no tenderness - Integumentary Integumentary: flushed, normal turgor - Neurologic Neurologic: CNII-XII intact - Musculoskeletal Musculoskeletal: generalized weakness - Psychiatric Psychiatric: A&O x's 3, appropriate affect, intact judgment & insight - Labs CBC & Chem 7: 04/21/18 10:48 04/21/18 10:48 Labs: Abnormal Lab Results - Last 24 Hours (Table) 04/20/18 04/20/18 04/21/18 Range/Units 16:40 20:42 06:51 WBC (3.8-10.6) k/uL RBC (3.80-5.40) m/uL Hgb (11.4-16.0) gm/dL MCV (80.0-100.0) fL RDW (11.5-15.5) % Neutrophils # (1.3-7.7) k/uL Lymphocytes # (1.0-4.8) k/uL Carbon Dioxide (22-30) mmol/L BUN (7-17) mg/dL Glucose (74-99) mg/dL POC Glucose (mg/dL) 215 H 135 H 131 H (75-99) mg/dL 04/21/18 04/21/18 04/21/18 Range/Units 10:48 10:48 11:35 WBC 17.5 H (3.8-10.6) k/uL RBC 3.41 L (3.80-5.40) m/uL Hgb 11.2 L (11.4-16.0) gm/dL MCV 104.1 H (80.0-100.0) fL RDW 16.4 H (11.5-15.5) % Neutrophils # 16.7 H (1.3-7.7) k/uL Lymphocytes # 0.4 L (1.0-4.8) k/uL Carbon Dioxide 31 H (22-30) mmol/L BUN 31 H (7-17) mg/dL Glucose 192 H (74-99) mg/dL POC Glucose (mg/dL) 199 H (75-99) mg/dL Assessment and Plan Plan: Impression: #1 Acute on chronic hypoxic respiratory failure secondary to an acute exacerbation of chronic obstructive pulmonary disease. #2 Frequent admissions for COPD exacerbations. #3 Severe advanced Gold stage IV chronic obstructive pulmonary disease with baseline FEV1 value 27% of predicted. #4 Acute on chronic hypercapnic respiratory failure secondary to above. #5 Chronic and ongoing tobacco dependence. #6 Rheumatoid arthritis. #7 Hypertension. #8 History of depression. #9 History of right colectomy in June 2017 for small bowel obstruction with subsequent wound dehiscence and reclosure. #10 History of vulvar cancer with resection, hysterectomy. #11 Daily alcohol use. Plan The patient is gradually improving. Her long-term prognosis for she has advanced lung disease and the patient has had recurrent hospitalization. The CAT scan of the chest shows COPD and there is no other abnormalities noted. We' ll likely benefit from ECF transfer following care current hospitalization. She understands the prognosis poor. We'll continue the bronchodilators. We'll continue the steroids. We'll add Mucinex DM.
[2018-04-21 16:58] LABS: Glucose,Whole Blood 188 mg/dL (75-99)
[2018-04-21] MEDS: diphenhydrAMINE 25 MG CAP PO SCH (20:48)
[2018-04-21] MEDS: LORazepam 1 MG TAB PO PRN (20:48)
[2018-04-21] MEDS: MONTELUKAST 10 MG TAB PO SCH (20:50)
[2018-04-21] MEDS: guaiFENesin-DM 600/30MG 1 EACH TAB.ER.12H PO SCH (20:50)
[2018-04-21 20:52] LABS: Glucose,Whole Blood 203 mg/dL (75-99)
[2018-04-21] MEDS: SODIUM CHLORIDE 0.65% NASAL SPRAY 44 ML BTL NASAL PRN (21:46)
--- NOTE | 2018-04-21 22:25 | PN ---
PROGRESS NOTE DATE OF SERVICE: 04/21/2018 This 63-year-old woman who presented with COPD exacerbation is being closely monitored. Patient is extremely short of breath. Still Dr. Goodman is following the patient. Patient on intensive bronchodilators, steroids also. No chest pain. No palpitations. No fever. PHYSICAL EXAM: Alert and oriented x3. Pulse is 96, blood pressure is 187/75, respiration 20, temperature 97.4, pulse ox 94% on 2 L. HEENT conjunctivae normal. Oral mucosa moist. NECK is no jugular venous distention. No carotid bruit. No lymph node enlargement. Cardiovascular System: S1, S2. Respirations: Breath sounds diminished in the bases. Bilateral scattered rhonchi and expiratory wheezing and crackles. ABDOMEN: Soft, nontender. Legs are no edema, no swelling. CENTRAL NERVOUS SYSTEM: No focal deficits. LABS: WBC 17.2, hemoglobin 11.2. ASSESSMENT: 1. Chronic obstructive pulmonary disease acute exacerbation with possible left lower lobe bronchopneumonia gram-negative. 2. Increased WBC. 3. Increased sodium. 4. History of hypertension. 5. History of pneumonia. 6. History of rheumatoid arthritis. 7. History of chronic hypoxic respiratory failure on 3 L nasal cannula. 8. History of cancer. 9. History of osteoporosis. 10.History of gout. 11.History of degenerative joint disease. 12.History attention-deficit/hyperactivity disorder. 13.History of anxiety. 14.History of depression. 15.History of nicotine dependence. RECOMMENDATIONS AND DISCUSSION: Recommend to continue current medications, management and symptomatic treatment. Otherwise at this time, continue the bronchodilators, steroids, antibiotics. Closely follow with Dr. Goodman. Prognosis guarded because of multiple complex medical issues. Further recommendations to follow. MMODL / IJN: [id number] / MTDKika
[2018-04-22] MEDS: methylPREDNISolone SOD SUCCI 125 MG/2 ML VIAL IV SCH ×5 (00:55→23:57)
[2018-04-22] MEDS: HYDROcodone/APAP 10-325MG 1 EACH TAB PO PRN (02:50)
[2018-04-22] MEDS: SODIUM CHLORIDE 0.65% NASAL SPRAY 44 ML BTL NASAL PRN ×2 (04:09→17:55)
[2018-04-22] MEDS: SODIUM CHLORIDE 0.9% 1,000 ML IV SCH (07:47)
[2018-04-22] MEDS: ENOXAPARIN 40 MG/0.4 ML SYRINGE SQ SCH (07:47)
[2018-04-22] MEDS: INSULIN ASPART 100 UNIT/ML 1 ML 10 ML VIAL SQ SCH ×4 (07:47→21:23)
[2018-04-22] MEDS: DEXTROAMPHETAMINE PO SCH (07:48)
[2018-04-22] MEDS: AMPHETAMINE PO SCH (07:48)
[2018-04-22] MEDS: LISINOPRIL 20 MG TAB PO SCH (07:48)
[2018-04-22] MEDS: guaiFENesin-DM 600/30MG 1 EACH TAB.ER.12H PO SCH ×2 (07:48→21:38)
[2018-04-22] MEDS: AZITHROMYCIN 500 MG TAB PO SCH (07:48)
[2018-04-22] MEDS: FLUCONAZOLE 100 MG TAB PO SCH (07:48)
[2018-04-22] MEDS: POLYETHYLENE GLYCOL 3350 17 GM POWD.PACK PO SCH (07:49)
[2018-04-22] MEDS: NICOTINE 21MG/24HR PATCH TRANSDERM SCH (07:49)
[2018-04-22] MEDS: PANTOPRAZOLE 40 MG/10 ML VIAL IVP SCH (07:49)
[2018-04-22 07:57] LABS: Glucose,Whole Blood 139 mg/dL (75-99)
[2018-04-22] MEDS: IPRATROPIUM-ALBUTEROL 3 ML NEB INHALATION SCH ×4 (08:14→19:57)
[2018-04-22] MEDS: FORMOTEROL FUMARATE 20 MCG/2 ML NEBU INHALATION SCH ×2 (08:14→19:56)
[2018-04-22] MEDS: BUDESONIDE 0.5 MG/2 ML NEBU INHALATION SCH ×2 (08:14→19:56)
[2018-04-22 10:10] LABS: Basophils % (A) 0 %; Eosinophils % (A) 0 %; HCT 34.7 % (34.0-46.0); HGB 10.8 gm/dL (11.4-16.0); Lymphocytes # (A) 0.3 k/uL (1.0-4.8); Lymphocytes % (A) 2 %; MCH 32.2 pg (25.0-35.0); MCV 103.8 fL (80.0-100.0); Macrocytosis Moderate; Mean Platelet Volume 7.7; Monocytes # (A) 0.5 k/uL (0-1.0); Monocytes % (A) 3 %; Neutrophils % (A) 95 %; Platelet Count 180 k/uL (150-450); RBC 3.34 m/uL (3.80-5.40); RDW 15.8 % (11.5-15.5); WBC 17.9 k/uL (3.8-10.6)
[2018-04-22 10:23] LABS: Anion Gap 7 mmol/L; Blood Urea Nitrogen 35 mg/dL (7-17); Calcium 8.9 mg/dL (8.4-10.2); Carbon Dioxide 31 mmol/L (22-30); Chloride 105 mmol/L (98-107); Glucose 196 mg/dL (74-99); Potassium 4.4 mmol/L (3.5-5.1); Sodium 143 mmol/L (137-145)
[2018-04-22 11:58] LABS: Glucose,Whole Blood 188 mg/dL (75-99)
[2018-04-22] MEDS: THIAMINE 100 MG TAB PO SCH (12:03)
[2018-04-22] MEDS: MULTIVITAMINS, THERA 1 EACH TAB PO SCH (12:03)
[2018-04-22] MEDS ORDERED: MAG HYDROX/AL HYDROX/SIMETH 30 ML CUP PO PRN (12:10)
--- NOTE | 2018-04-22 12:46 | P.PN ---
Subjective Progress Note Date: 04/22/18 Principal diagnosis: Acute on chronic hypoxic respiratory failure secondary to an acute exacerbation of chronic obstructive pulmonary disease This is a very pleasant 63-year-old female patient who follows with Dr. Mijares as her primary care physician. She has a history of rheumatoid arthritis, hypertension, daily alcohol use, obesity. Chest has a history of severe Gold stage IV chronic obstructive pulmonary disease. Her FEV1 value is 27% of predicted. Now oxygen dependent. Continue and ongoing tobacco dependence. She has had ongoing issues with cost in the ability to pay for her inhalers in the outpatient setting. She has had multiple admissions for exacerbation of her COPD as recently as last week and had undergone a bronchoscopy with BAL which revealed no growth other than Erica. She was discharged home on 2017. She presented again here early this morning to the emergency room with recurrent episode of increasing shortness of breath, cough and congestion. Chest x-ray shows minimal infiltrate along the lung base. White count 15.4. Hemoglobin 12.2. Creatinine 0.70. Bicarb 30. She's been afebrile. Slightly tachycardic. Maintain O2 saturations in the mid to upper 90s on 2 L/m per nasal cannula. The patient is seen again today 04/20/2018 in follow-up on the regular medical floor. She remains awake and alert in no acute distress. She is breathing better today as compared to yesterday. Still not back to her baseline. She is maintaining O2 saturation in the low 90s on room air. She's been afebrile. Computed tomography scan of the chest reveals no pulmonary abnormalities other than a stable tiny nodular density in the right upper lobe. There is multiple thoracic compression fractures noted. White count 12.9. Hemoglobin 10.5. Creatinine 0.62. He is continued on IV Solu-Medrol, bronchodilators, antibiotics in the form of azithromycin. On the patient is looking well. No specific complaints. Less short of breath compared to yesterday. Slowly improving. No significant chest pain. A bit lethargic and sleepy. No other significant events overnight. No fever or chills. She was able to give me a sputum sample for analysis and and the cultures still pending for now. On 04/22/2018 patient seen in follow-up on medical surgical floor. In no acute distress, she is resting in bed, appears generally swollen. Denies any worsening dyspnea, denies any chest pain. She has occasional cough, with production of brownish yellow sputum. Denies any fever or chills, sputum culture is pending at this time, pulse ox on 2 L per nasal cannula was 98%, she is slightly tachycardic with a heart rate in the low 100s. Today's labs were reviewed, WBC is 17.9, CO2 is 31, Bun is 35, creatinine 0.77. Patient is being treated with empiric antibiotics in the form of Zithromax, she remains on Diflucan, she is receiving cough syrup, and nebulized bronchodilators for her acute COPD exacerbation. Objective - Vital Signs Vital signs: Vital Signs Temp 96.8 F L 04/22/18 06:39 Pulse 100 04/22/18 12:02 Resp 18 04/22/18 06:39 BP 142/75 04/22/18 06:39 Pulse Ox 98 04/22/18 06:39 Intake & Output 04/21/18 04/22/18 04/22/18 18:59 06:59 18:59 Intake Total 1200 340 Balance 1200 340 Intake: Oral 1200 340 Other: # Voids 1 1 2 - Exam - Constitutional General appearance: mild distress, morbidly obese, appears generally swollen - EENT Eyes: EOMI, PERRLA ENT: hearing grossly normal Ears: bilateral: normal - Neck Neck: normal ROM Carotids: bilateral: upstroke normal Thyroid: bilateral: normal size - Respiratory Respiratory: bilateral: diminished, wheezing, prolonged expiration - Cardiovascular Rhythm: regular Heart sounds: normal: S1, S2 - Gastrointestinal General gastrointestinal: no organomegaly, soft, no tenderness - Integumentary Integumentary: flushed, normal turgor - Neurologic Neurologic: CNII-XII intact - Musculoskeletal Musculoskeletal: generalized weakness - Psychiatric Psychiatric: A&O x's 3, appropriate affect, intact judgment & insight - Labs CBC & Chem 7: 04/22/18 09:28 04/22/18 09:28 Labs: Abnormal Lab Results - Last 24 Hours (Table) 04/21/18 04/21/18 04/22/18 Range/Units 16:55 20:47 07:17 WBC (3.8-10.6) k/uL RBC (3.80-5.40) m/uL Hgb (11.4-16.0) gm/dL MCV (80.0-100.0) fL RDW (11.5-15.5) % Neutrophils # (1.3-7.7) k/uL Lymphocytes # (1.0-4.8) k/uL Carbon Dioxide (22-30) mmol/L BUN (7-17) mg/dL Glucose (74-99) mg/dL POC Glucose (mg/dL) 188 H 203 H 139 H (75-99) mg/dL 04/22/18 04/22/18 04/22/18 Range/Units 09:28 09:28 11:50 WBC 17.9 H (3.8-10.6) k/uL RBC 3.34 L (3.80-5.40) m/uL Hgb 10.8 L (11.4-16.0) gm/dL MCV 103.8 H (80.0-100.0) fL RDW 15.8 H (11.5-15.5) % Neutrophils # 17.0 H (1.3-7.7) k/uL Lymphocytes # 0.3 L (1.0-4.8) k/uL Carbon Dioxide 31 H (22-30) mmol/L BUN 35 H (7-17) mg/dL Glucose 196 H (74-99) mg/dL POC Glucose (mg/dL) 188 H (75-99) mg/dL Microbiology - Last 24 Hours (Table) 04/21/18 15:54 Gram Stain - Preliminary Sputum Sputum Culture - Preliminary Assessment and Plan Plan: Assessment: #1 Acute on chronic hypoxic respiratory failure secondary to an acute exacerbation of chronic obstructive pulmonary disease. #2 Frequent admissions for COPD exacerbations. #3 Severe advanced Gold stage IV chronic obstructive pulmonary disease with baseline FEV1 value 27% of predicted. #4 Acute on chronic hypercapnic respiratory failure secondary to above. #5 Chronic and ongoing tobacco dependence. #6 Rheumatoid arthritis. #7 Hypertension. #8 History of depression. #9 History of right colectomy in June 2017 for small bowel obstruction with subsequent wound dehiscence and reclosure. #10 History of vulvar cancer with resection, hysterectomy. #11 Daily alcohol use. Plan Continue current medical treatment, continue current antibiotic coverage, awaiting the final results of the sputum culture, continue Diflucan, nebulized bronchodilators, and IV steroids. Continue Mucinex DM, increase activity as tolerated, patient is agreeable to ECF transfer following her current hospitalization, overall patient's status seems to be declining with each hospitalization, and in view of her end-stage COPD and other comorbidities, her overall long-term prognosis is extremely guarded. I performed a history & physical examination of the patient and discussed their management with my nurse practitioner, Savanah Mart. I reviewed the nurse practitioner's note and agree with the documented findings and plan of care. Lung sounds are positive for diffuse wheezes throughout the lung guzman. The findings and the impression was discussed with the patient. I attest to the documentation by the nurse practitioner. Time with Patient: Less than 30
--- NOTE | 2018-04-22 17:08 | P.PN ---
Subjective Progress Note Date: 04/22/18 Progress note being dictated for Dr. Calixto Interval history: This is a 63-year-old female admitted with acute severe COPD exacerbation and multiple other medical issues. Maintained on Zithromax, Diflucan, nebulized bronchodilators. Breathing slowly improving. Productive cough with dark yellow sputum. Sputum culture pending. Maintaining O2 sats in the high 90s on 2 L nasal cannula. Afebrile. Objective - Vital Signs Vital signs: Vital Signs Temp 98.4 F 04/22/18 14:16 Pulse 115 H 04/22/18 15:57 Resp 20 04/22/18 14:16 BP 152/73 04/22/18 14:16 Pulse Ox 92 L 04/22/18 15:39 Intake & Output 04/21/18 04/22/18 04/22/18 18:59 06:59 18:59 Intake Total 1200 340 Balance 1200 340 Intake: Oral 1200 340 Other: # Voids 1 1 1 - Exam PHYSICAL EXAM: VITAL SIGNS: As above GENERAL: And up in bed, respiratory effort increased HEENT: Conjunctivae normal. eyes normal. Oral mucosa somewhat NECK: No JVD. No thyroid enlargement. No LNs CARDIOVASCULAR: S1, S2 muffled. No murmur RESPIRATION: Breath sounds diminished in the bases. Scattered rhonchi, expiratory wheezing ABDOMEN: Soft, nontender . No guarding. no masses palpable. Bowel sounds heard. LEGS: No edema. no swelling PSYCHIATRY: Alert and oriented -3, mood and affect normal. NERVOUS SYSTEM: Cranial N 2-12 grossly normal. Moves all 4 limbs. Diffuse weakness No focal deficits. Lymphatic system. No LN neck axilla or groin. - Labs CBC & Chem 7: 04/22/18 09:28 04/22/18 09:28 Labs: Abnormal Lab Results - Last 24 Hours (Table) 04/21/18 04/21/18 04/22/18 Range/Units 16:55 20:47 07:17 WBC (3.8-10.6) k/uL RBC (3.80-5.40) m/uL Hgb (11.4-16.0) gm/dL MCV (80.0-100.0) fL RDW (11.5-15.5) % Neutrophils # (1.3-7.7) k/uL Lymphocytes # (1.0-4.8) k/uL Carbon Dioxide (22-30) mmol/L BUN (7-17) mg/dL Glucose (74-99) mg/dL POC Glucose (mg/dL) 188 H 203 H 139 H (75-99) mg/dL 04/22/18 04/22/18 04/22/18 Range/Units 09:28 09:28 11:50 WBC 17.9 H (3.8-10.6) k/uL RBC 3.34 L (3.80-5.40) m/uL Hgb 10.8 L (11.4-16.0) gm/dL MCV 103.8 H (80.0-100.0) fL RDW 15.8 H (11.5-15.5) % Neutrophils # 17.0 H (1.3-7.7) k/uL Lymphocytes # 0.3 L (1.0-4.8) k/uL Carbon Dioxide 31 H (22-30) mmol/L BUN 35 H (7-17) mg/dL Glucose 196 H (74-99) mg/dL POC Glucose (mg/dL) 188 H (75-99) mg/dL Microbiology - Last 24 Hours (Table) 04/21/18 15:54 Gram Stain - Preliminary Sputum Sputum Culture - Preliminary Assessment and Plan Assessment: 1. Acute COPD exacerbation with possible left lower lobe bronchopneumonia gram- negative. Severe advanced end-stage COPD. 2. Leukocytosis secondary to the above 3. Chronic respiratory failure on 3 L nasal cannula at home 4. History of nicotine dependence 5. Acute on chronic hypoxic, hypercapnic respiratory failure secondary to #1 Plan: Continue current medication regime ,monitoring and symptomatic treatment. Maintain nebulized bronchodilators, antibiotics, Diflucan, steroids. pt/ot. Discussed potential subacute rehab at discharge, given patient's severe advanced endstage COPD, which patient is agreeable to .Social work consulted for subacute rehab at discharge. Follow closely with pulmonary. The impression and plan of care has been dictated as directed. : I performed a history and examination of this patient, discussed the same with the dictator. I agree with the dictator's note ,documented as a scribe. Any additional findings or plans will be noted.
[2018-04-22 17:26] LABS: Glucose,Whole Blood 171 mg/dL (75-99)
[2018-04-22] MEDS: IBUPROFEN 400 MG TAB PO PRN (18:03)
[2018-04-22 21:20] LABS: Glucose,Whole Blood 126 mg/dL (75-99)
[2018-04-22] MEDS: diphenhydrAMINE 25 MG CAP PO SCH (21:37)
[2018-04-22] MEDS: MONTELUKAST 10 MG TAB PO SCH (21:38)
[2018-04-23] MEDS: LORazepam 1 MG TAB PO PRN ×2 (00:53→21:54)
[2018-04-23] MEDS: methylPREDNISolone SOD SUCCI 125 MG/2 ML VIAL IV SCH ×4 (05:51→23:53)
[2018-04-23 06:59] LABS: Glucose,Whole Blood 129 mg/dL (75-99)
[2018-04-23] MEDS: FORMOTEROL FUMARATE 20 MCG/2 ML NEBU INHALATION SCH ×2 (07:15→20:15)
[2018-04-23] MEDS: IPRATROPIUM-ALBUTEROL 3 ML NEB INHALATION SCH ×4 (07:15→20:15)
[2018-04-23] MEDS: BUDESONIDE 0.5 MG/2 ML NEBU INHALATION SCH ×2 (07:15→20:15)
[2018-04-23] MEDS: INSULIN ASPART 100 UNIT/ML 1 ML 10 ML VIAL SQ SCH ×4 (07:30→20:41)
[2018-04-23] MEDS: NICOTINE 21MG/24HR PATCH TRANSDERM SCH (07:42)
[2018-04-23] MEDS: SODIUM CHLORIDE 0.9% 1,000 ML IV SCH (07:55)
[2018-04-23] MEDS: PANTOPRAZOLE 40 MG TABLET PO SCH (07:56)
[2018-04-23] MEDS: AZITHROMYCIN 500 MG TAB PO SCH (07:56)
[2018-04-23] MEDS: LISINOPRIL 20 MG TAB PO SCH (07:56)
[2018-04-23] MEDS: POLYETHYLENE GLYCOL 3350 17 GM POWD.PACK PO SCH (07:56)
[2018-04-23] MEDS: ENOXAPARIN 40 MG/0.4 ML SYRINGE SQ SCH (07:56)
[2018-04-23] MEDS: AMPHETAMINE PO SCH (07:56)
[2018-04-23] MEDS: FLUCONAZOLE 100 MG TAB PO SCH (07:56)
[2018-04-23] MEDS: DEXTROAMPHETAMINE PO SCH (07:56)
[2018-04-23] MEDS: guaiFENesin-DM 600/30MG 1 EACH TAB.ER.12H PO SCH ×2 (07:56→20:41)
[2018-04-23 08:41] LABS: Anisocytosis Slight; Basophils % (A) 0 %; Eosinophils % (A) 0 %; HCT 35.3 % (34.0-46.0); HGB 11.1 gm/dL (11.4-16.0); Lymphocytes # (A) 0.3 k/uL (1.0-4.8); Lymphocytes % (A) 2 %; MCH 33.1 pg (25.0-35.0); MCHC 31.5 g/dL (31.0-37.0); Macrocytosis Moderate; Mean Platelet Volume 7.2; Monocytes # (A) 0.3 k/uL (0-1.0); Monocytes % (A) 2 %; Neutrophils % (A) 95 %; Platelet Count 186 k/uL (150-450); RBC 3.36 m/uL (3.80-5.40); RDW 16.2 % (11.5-15.5); WBC 14.8 k/uL (3.8-10.6)
[2018-04-23 08:50] LABS: Anion Gap 3 mmol/L; Blood Urea Nitrogen 33 mg/dL (7-17); Carbon Dioxide 36 mmol/L (22-30); Chloride 104 mmol/L (98-107); Glucose 135 mg/dL (74-99); Potassium 4.7 mmol/L (3.5-5.1); Sodium 143 mmol/L (137-145)
[2018-04-23 12:07] LABS: Glucose,Whole Blood 170 mg/dL (75-99)
[2018-04-23] MEDS: THIAMINE 100 MG TAB PO SCH (12:19)
[2018-04-23] MEDS: MULTIVITAMINS, THERA 1 EACH TAB PO SCH (12:19)
--- NOTE | 2018-04-23 13:33 | P.PN ---
Subjective Progress Note Date: 04/23/18 Principal diagnosis: Acute on chronic hypoxic respiratory failure secondary to an acute exacerbation of chronic obstructive pulmonary disease This is a very pleasant 63-year-old female patient who follows with Dr. Mijares as her primary care physician. She has a history of rheumatoid arthritis, hypertension, daily alcohol use, obesity. Chest has a history of severe Gold stage IV chronic obstructive pulmonary disease. Her FEV1 value is 27% of predicted. Now oxygen dependent. Continue and ongoing tobacco dependence. She has had ongoing issues with cost in the ability to pay for her inhalers in the outpatient setting. She has had multiple admissions for exacerbation of her COPD as recently as last week and had undergone a bronchoscopy with BAL which revealed no growth other than Erica. She was discharged home on 2017. She presented again here early this morning to the emergency room with recurrent episode of increasing shortness of breath, cough and congestion. Chest x-ray shows minimal infiltrate along the lung base. White count 15.4. Hemoglobin 12.2. Creatinine 0.70. Bicarb 30. She's been afebrile. Slightly tachycardic. Maintain O2 saturations in the mid to upper 90s on 2 L/m per nasal cannula. The patient is seen again today 04/20/2018 in follow-up on the regular medical floor. She remains awake and alert in no acute distress. She is breathing better today as compared to yesterday. Still not back to her baseline. She is maintaining O2 saturation in the low 90s on room air. She's been afebrile. Computed tomography scan of the chest reveals no pulmonary abnormalities other than a stable tiny nodular density in the right upper lobe. There is multiple thoracic compression fractures noted. White count 12.9. Hemoglobin 10.5. Creatinine 0.62. He is continued on IV Solu-Medrol, bronchodilators, antibiotics in the form of azithromycin. On the patient is looking well. No specific complaints. Less short of breath compared to yesterday. Slowly improving. No significant chest pain. A bit lethargic and sleepy. No other significant events overnight. No fever or chills. She was able to give me a sputum sample for analysis and and the cultures still pending for now. On 04/22/2018 patient seen in follow-up on medical surgical floor. In no acute distress, she is resting in bed, appears generally swollen. Denies any worsening dyspnea, denies any chest pain. She has occasional cough, with production of brownish yellow sputum. Denies any fever or chills, sputum culture is pending at this time, pulse ox on 2 L per nasal cannula was 98%, she is slightly tachycardic with a heart rate in the low 100s. Today's labs were reviewed, WBC is 17.9, CO2 is 31, Bun is 35, creatinine 0.77. Patient is being treated with empiric antibiotics in the form of Zithromax, she remains on Diflucan, she is receiving cough syrup, and nebulized bronchodilators for her acute COPD exacerbation. On 04/23/2018 patient seen in follow-up on medical surgical floor. She is sitting up in the chair, eating breakfast, states she slowly improving, lung sounds are diminished, with diffuse wheezing bilaterally. Patient has a congested cough, with production of brownish and greenish phlegm, appears generally swollen, this is probably due to of steroids. Her when necessary dose of oral Lasix was given this morning. Her left ankle is a bit more swollen than the right, no pedal edema or or pretibial edema. Sputum culture showed moderate normal respiratory patricia, fever or chills, patient does get dyspneic with any exertion, but overall is making slow improvement. Her lab work was reviewed, white count is trending down, and is down to 14.8, hemoglobin is 11.1, sodium is 143, potassium is 4.7, chloride is 104, CO2 is 36 , BUN is 33, and creatinine is 0.74. Objective - Vital Signs Vital signs: Vital Signs Temp 97.9 F 04/23/18 06:27 Pulse 101 H 04/23/18 11:16 Resp 18 04/23/18 11:16 BP 165/92 04/23/18 06:27 Pulse Ox 97 04/23/18 07:15 Intake & Output 04/22/18 04/23/18 04/23/18 18:59 06:59 18:59 Intake Total 80 Balance 80 Intake: Intake, IV Titration 80 Amount Sodium Chloride 0.9% 1, 80 000 ml @ 10 mls/hr IV . Q24H [facility] Rx#:[id number] Other: # Voids 1 1 - Exam - Constitutional General appearance: mild distress, morbidly obese, appears generally swollen - EENT Eyes: EOMI, PERRLA ENT: hearing grossly normal Ears: bilateral: normal - Neck Neck: normal ROM Carotids: bilateral: upstroke normal Thyroid: bilateral: normal size - Respiratory Respiratory: bilateral: diminished, wheezing, prolonged expiration - Cardiovascular Rhythm: regular Heart sounds: normal: S1, S2 - Gastrointestinal General gastrointestinal: no organomegaly, soft, no tenderness - Integumentary Integumentary: flushed, normal turgor - Neurologic Neurologic: CNII-XII intact - Musculoskeletal Musculoskeletal: generalized weakness - Psychiatric Psychiatric: A&O x's 3, appropriate affect, intact judgment & insight - Labs CBC & Chem 7: 04/23/18 08:06 04/23/18 08:06 Labs: Abnormal Lab Results - Last 24 Hours (Table) 04/22/18 04/22/18 04/22/18 Range/Units 11:50 17:24 21:11 WBC (3.8-10.6) k/uL RBC (3.80-5.40) m/uL Hgb (11.4-16.0) gm/dL MCV (80.0-100.0) fL RDW (11.5-15.5) % Neutrophils # (1.3-7.7) k/uL Lymphocytes # (1.0-4.8) k/uL Carbon Dioxide (22-30) mmol/L BUN (7-17) mg/dL Glucose (74-99) mg/dL POC Glucose (mg/dL) 188 H 171 H 126 H (75-99) mg/dL 04/23/18 04/23/18 04/23/18 Range/Units 06:57 08:06 08:06 WBC 14.8 H (3.8-10.6) k/uL RBC 3.36 L (3.80-5.40) m/uL Hgb 11.1 L (11.4-16.0) gm/dL MCV 105.0 H (80.0-100.0) fL RDW 16.2 H (11.5-15.5) % Neutrophils # 14.0 H (1.3-7.7) k/uL Lymphocytes # 0.3 L (1.0-4.8) k/uL Carbon Dioxide 36 H (22-30) mmol/L BUN 33 H (7-17) mg/dL Glucose 135 H (74-99) mg/dL POC Glucose (mg/dL) 129 H (75-99) mg/dL Microbiology - Last 24 Hours (Table) 04/21/18 15:54 Gram Stain - Final Sputum Sputum Culture - Final Assessment and Plan Plan: Assessment: #1 Acute on chronic hypoxic respiratory failure secondary to an acute exacerbation of chronic obstructive pulmonary disease. #2 Frequent admissions for COPD exacerbations. #3 Severe advanced Gold stage IV chronic obstructive pulmonary disease with baseline FEV1 value 27% of predicted. #4 Acute on chronic hypercapnic respiratory failure secondary to above. #5 Chronic and ongoing tobacco dependence. #6 Rheumatoid arthritis. #7 Hypertension. #8 History of depression. #9 History of right colectomy in June 2017 for small bowel obstruction with subsequent wound dehiscence and reclosure. #10 History of vulvar cancer with resection, hysterectomy. #11 Daily alcohol use. Plan Slowly improving, but remains tight and wheezy, and continue current dose of IV steroids, nebulized bronchodilators, and did receive a dose of her oral Lasix this morning. Continue current antibiotics. Increase activity as tolerated. Not quite ready for discharge yet I performed a history & physical examination of the patient and discussed their management with my nurse practitioner, Savanah Mart. I reviewed the nurse practitioner's note and agree with the documented findings and plan of care. Lung sounds are positive for diffuse wheezes throughout the lung guzman. The findings and the impression was discussed with the patient. I attest to the documentation by the nurse practitioner. Time with Patient: Less than 30
[2018-04-23 17:20] LABS: Glucose,Whole Blood 247 mg/dL (75-99)
[2018-04-23 20:30] LABS: Glucose,Whole Blood 143 mg/dL (75-99)
[2018-04-23] MEDS: diphenhydrAMINE 25 MG CAP PO SCH (20:41)
[2018-04-23] MEDS: HYDROcodone/APAP 10-325MG 1 EACH TAB PO PRN (20:57)
[2018-04-23] MEDS: MONTELUKAST 10 MG TAB PO SCH (21:54)
[2018-04-24 07:04] LABS: Glucose,Whole Blood 142 mg/dL (75-99)
[2018-04-24] MEDS: IPRATROPIUM-ALBUTEROL 3 ML NEB INHALATION SCH ×4 (07:31→20:23)
[2018-04-24] MEDS: BUDESONIDE 0.5 MG/2 ML NEBU INHALATION SCH ×2 (07:31→20:23)
[2018-04-24] MEDS: FORMOTEROL FUMARATE 20 MCG/2 ML NEBU INHALATION SCH ×2 (07:31→20:23)
[2018-04-24 08:24] LABS: Basophils % (A) 0 %; Eosinophils % (A) 0 %; HCT 32.8 % (34.0-46.0); HGB 10.6 gm/dL (11.4-16.0); Lymphocytes # (A) 0.2 k/uL (1.0-4.8); Lymphocytes % (A) 2 %; MCHC 32.4 g/dL (31.0-37.0); MCV 101.9 fL (80.0-100.0); Macrocytosis Slight; Mean Platelet Volume 7.3; Monocytes # (A) 0.4 k/uL (0-1.0); Monocytes % (A) 3 %; Neutrophils # (A) 11.9 k/uL (1.3-7.7); Neutrophils % (A) 94 %; Platelet Count 184 k/uL (150-450); RBC 3.22 m/uL (3.80-5.40); RDW 15.5 % (11.5-15.5); WBC 12.6 k/uL (3.8-10.6)
[2018-04-24 09:38] LABS: Blood Urea Nitrogen 35 mg/dL (7-17); Calcium 8.8 mg/dL (8.4-10.2); Chloride 98 mmol/L (98-107); Glucose 145 mg/dL (74-99); Potassium 4.2 mmol/L (3.5-5.1); Sodium 143 mmol/L (137-145)
[2018-04-24 09:46] LABS: Anion Gap 4 mmol/L
[2018-04-24 11:33] LABS: Glucose,Whole Blood 170 mg/dL (75-99)
--- NOTE | 2018-04-24 11:54 | P.PN ---
Subjective Progress Note Date: 04/24/18 Principal diagnosis: Acute on chronic hypoxic respiratory failure secondary to an acute exacerbation of chronic obstructive pulmonary disease This is a very pleasant 63-year-old female patient who follows with Dr. Mijares as her primary care physician. She has a history of rheumatoid arthritis, hypertension, daily alcohol use, obesity. Chest has a history of severe Gold stage IV chronic obstructive pulmonary disease. Her FEV1 value is 27% of predicted. Now oxygen dependent. Continue and ongoing tobacco dependence. She has had ongoing issues with cost in the ability to pay for her inhalers in the outpatient setting. She has had multiple admissions for exacerbation of her COPD as recently as last week and had undergone a bronchoscopy with BAL which revealed no growth other than Erica. She was discharged home on 2017. She presented again here early this morning to the emergency room with recurrent episode of increasing shortness of breath, cough and congestion. Chest x-ray shows minimal infiltrate along the lung base. White count 15.4. Hemoglobin 12.2. Creatinine 0.70. Bicarb 30. She's been afebrile. Slightly tachycardic. Maintain O2 saturations in the mid to upper 90s on 2 L/m per nasal cannula. The patient is seen again today 04/20/2018 in follow-up on the regular medical floor. She remains awake and alert in no acute distress. She is breathing better today as compared to yesterday. Still not back to her baseline. She is maintaining O2 saturation in the low 90s on room air. She's been afebrile. Computed tomography scan of the chest reveals no pulmonary abnormalities other than a stable tiny nodular density in the right upper lobe. There is multiple thoracic compression fractures noted. White count 12.9. Hemoglobin 10.5. Creatinine 0.62. He is continued on IV Solu-Medrol, bronchodilators, antibiotics in the form of azithromycin. On the patient is looking well. No specific complaints. Less short of breath compared to yesterday. Slowly improving. No significant chest pain. A bit lethargic and sleepy. No other significant events overnight. No fever or chills. She was able to give me a sputum sample for analysis and and the cultures still pending for now. On 04/22/2018 patient seen in follow-up on medical surgical floor. In no acute distress, she is resting in bed, appears generally swollen. Denies any worsening dyspnea, denies any chest pain. She has occasional cough, with production of brownish yellow sputum. Denies any fever or chills, sputum culture is pending at this time, pulse ox on 2 L per nasal cannula was 98%, she is slightly tachycardic with a heart rate in the low 100s. Today's labs were reviewed, WBC is 17.9, CO2 is 31, Bun is 35, creatinine 0.77. Patient is being treated with empiric antibiotics in the form of Zithromax, she remains on Diflucan, she is receiving cough syrup, and nebulized bronchodilators for her acute COPD exacerbation. On 04/23/2018 patient seen in follow-up on medical surgical floor. She is sitting up in the chair, eating breakfast, states she slowly improving, lung sounds are diminished, with diffuse wheezing bilaterally. Patient has a congested cough, with production of brownish and greenish phlegm, appears generally swollen, this is probably due to of steroids. Her when necessary dose of oral Lasix was given this morning. Her left ankle is a bit more swollen than the right, no pedal edema or or pretibial edema. Sputum culture showed moderate normal respiratory patricia, fever or chills, patient does get dyspneic with any exertion, but overall is making slow improvement. Her lab work was reviewed, white count is trending down, and is down to 14.8, hemoglobin is 11.1, sodium is 143, potassium is 4.7, chloride is 104, CO2 is 36 , BUN is 33, and creatinine is 0.74. On 04/23/2018 patient seen in follow-up on medical surgical floor. Improve, denies any worsening dyspnea, she is been ambulating about the room, tolerating it fairly well. Lung sounds are positive for scattered wheezes, but overall there is better air entry noted bilaterally, likely patient reports improvement , less chest tightness, S wheezing and less chest congestion. Sinus on 3 L per nasal cannula is 96%, vital signs are stable, patient is afebrile, today's lab work shows WBC of 12.6, hemoglobin is 10.6, BMP today. No new chest x-rays. Sputum culture is negative. Continue current medical treatment, discharge planning is working on getting preapproval for placement to ECF, however the patient may not qualify. Patient states if she does get discharged home, she currently has no air conditioning, and it is in the process of being installed and may take another couple of days. Objective - Vital Signs Vital signs: Vital Signs Temp 98.7 F 04/23/18 22:34 Pulse 106 H 04/23/18 22:34 Resp 17 04/23/18 22:34 BP 151/77 04/23/18 22:34 Pulse Ox 96 04/23/18 22:34 Intake & Output 04/23/18 04/24/18 04/24/18 18:59 06:59 18:59 Intake Total 440 200 Balance 440 200 Intake: Oral 440 200 Other: # Voids 1 2 2 # Bowel Movements 0 - Exam - Constitutional General appearance: mild distress, morbidly obese, appears generally swollen - EENT Eyes: EOMI, PERRLA ENT: hearing grossly normal Ears: bilateral: normal - Neck Neck: normal ROM Carotids: bilateral: upstroke normal Thyroid: bilateral: normal size - Respiratory Respiratory: bilateral: diminished, wheezing, prolonged expiration - Cardiovascular Rhythm: regular Heart sounds: normal: S1, S2 - Gastrointestinal General gastrointestinal: no organomegaly, soft, no tenderness - Integumentary Integumentary: flushed, normal turgor - Neurologic Neurologic: CNII-XII intact - Musculoskeletal Musculoskeletal: generalized weakness - Psychiatric Psychiatric: A&O x's 3, appropriate affect, intact judgment & insight - Labs CBC & Chem 7: 04/24/18 07:00 04/23/18 08:06 Labs: Abnormal Lab Results - Last 24 Hours (Table) 04/23/18 04/23/18 04/23/18 Range/Units 11:55 17:10 20:26 WBC (3.8-10.6) k/uL RBC (3.80-5.40) m/uL Hgb (11.4-16.0) gm/dL Hct (34.0-46.0) % MCV (80.0-100.0) fL Neutrophils # (1.3-7.7) k/uL Lymphocytes # (1.0-4.8) k/uL POC Glucose (mg/dL) 170 H 247 H 143 H (75-99) mg/dL 04/24/18 04/24/18 04/24/18 Range/Units 06:57 07:00 11:31 WBC 12.6 H (3.8-10.6) k/uL RBC 3.22 L (3.80-5.40) m/uL Hgb 10.6 L (11.4-16.0) gm/dL Hct 32.8 L (34.0-46.0) % MCV 101.9 H (80.0-100.0) fL Neutrophils # 11.9 H (1.3-7.7) k/uL Lymphocytes # 0.2 L (1.0-4.8) k/uL POC Glucose (mg/dL) 142 H 170 H (75-99) mg/dL Microbiology - Last 24 Hours (Table) 04/21/18 15:54 Gram Stain - Final Sputum Sputum Culture - Final Assessment and Plan Plan: Assessment: #1 Acute on chronic hypoxic respiratory failure secondary to an acute exacerbation of chronic obstructive pulmonary disease. #2 Frequent admissions for COPD exacerbations. #3 Severe advanced Gold stage IV chronic obstructive pulmonary disease with baseline FEV1 value 27% of predicted. #4 Acute on chronic hypercapnic respiratory failure secondary to above. #5 Chronic and ongoing tobacco dependence. #6 Rheumatoid arthritis. #7 Hypertension. #8 History of depression. #9 History of right colectomy in June 2017 for small bowel obstruction with subsequent wound dehiscence and reclosure. #10 History of vulvar cancer with resection, hysterectomy. #11 Daily alcohol use. Plan Patient is slowly improving, will continue current dose antibiotics, Solu-Medrol , nebulized bronchodilators. Increase activity as tolerated, patient may not qualify for ECF placement we will await preapproval. I performed a history & physical examination of the patient and discussed their management with my nurse practitioner, Savanah Mart. I reviewed the nurse practitioner's note and agree with the documented findings and plan of care. Lung sounds are positive for diffuse wheezes throughout the lung guzman. The findings and the impression was discussed with the patient. I attest to the documentation by the nurse practitioner. Time with Patient: Less than 30
[2018-04-24] MEDS: methylPREDNISolone SOD SUCCI 125 MG/2 ML VIAL IV SCH ×3 (13:02→17:57)
[2018-04-24] MEDS: POLYETHYLENE GLYCOL 3350 17 GM POWD.PACK PO SCH (13:03)
[2018-04-24] MEDS: FLUCONAZOLE 100 MG TAB PO SCH (13:03)
[2018-04-24] MEDS: LISINOPRIL 20 MG TAB PO SCH (13:03)
[2018-04-24] MEDS: INSULIN ASPART 100 UNIT/ML 1 ML 10 ML VIAL SQ SCH ×4 (13:03→21:36)
[2018-04-24] MEDS: AZITHROMYCIN 500 MG TAB PO SCH (13:03)
[2018-04-24] MEDS: PANTOPRAZOLE 40 MG TABLET PO SCH (13:03)
[2018-04-24] MEDS: AMPHETAMINE PO SCH (13:03)
[2018-04-24] MEDS: DEXTROAMPHETAMINE PO SCH (13:03)
[2018-04-24] MEDS: ENOXAPARIN 40 MG/0.4 ML SYRINGE SQ SCH (13:03)
[2018-04-24] MEDS: NICOTINE 21MG/24HR PATCH TRANSDERM SCH (13:03)
[2018-04-24] MEDS: guaiFENesin-DM 600/30MG 1 EACH TAB.ER.12H PO SCH ×2 (13:03→20:26)
[2018-04-24] MEDS: SODIUM CHLORIDE 0.9% 1,000 ML IV SCH (13:04)
[2018-04-24] MEDS: THIAMINE 100 MG TAB PO SCH (13:37)
[2018-04-24] MEDS: MULTIVITAMINS, THERA 1 EACH TAB PO SCH (13:37)
[2018-04-24 14:44] LABS: Carbon Dioxide 41 mmol/L (22-30)
[2018-04-24] MEDS: HYDROcodone/APAP 10-325MG 1 EACH TAB PO PRN (15:57)
[2018-04-24 17:06] LABS: Glucose,Whole Blood 153 mg/dL (75-99)
[2018-04-24] MEDS: LORazepam 1 MG TAB PO PRN (20:26)
[2018-04-24] MEDS: MONTELUKAST 10 MG TAB PO SCH (20:27)
[2018-04-24] MEDS: diphenhydrAMINE 25 MG CAP PO SCH (20:30)
--- NOTE | 2018-04-24 20:48 | P.PN ---
Subjective Progress Note Date: 04/23/18 Progress note being dictated for Dr. Calixto Interval history: This is a 63-year-old female admitted with acute severe COPD exacerbation and multiple other medical issues. Maintained on Zithromax, Diflucan, nebulized bronchodilators. Breathing slowly improving. Productive cough with dark yellow sputum. Sputum culture pending. Maintaining O2 sats in the high 90s on 2 L nasal cannula. Afebrile. 04/23/2018 breathing mildly improved, congested productive cough with greenish brownish sputum reported. Complains of exertional shortness of breath. Sputum culture reporting normal respiratory patricia. Objective - Vital Signs Vital signs: Vital Signs Temp 99.1 F 04/23/18 14:56 Pulse 100 04/23/18 17:13 Resp 18 04/23/18 14:56 BP 154/60 04/23/18 14:56 Pulse Ox 97 04/23/18 14:56 Intake & Output 04/22/18 04/23/18 04/23/18 18:59 06:59 18:59 Intake Total 80 Balance 80 Intake: Intake, IV Titration 80 Amount Sodium Chloride 0.9% 1, 80 000 ml @ 10 mls/hr IV . Q24H [facility] Rx#:[id number] Other: # Voids 1 1 1 - Exam PHYSICAL EXAM: VITAL SIGNS: As above GENERAL: And up in bed, respiratory effort increased HEENT: Conjunctivae normal. eyes normal. Oral mucosa somewhat NECK: No JVD. No thyroid enlargement. No LNs CARDIOVASCULAR: S1, S2 muffled. No murmur RESPIRATION: Breath sounds diminished in the bases. Scattered rhonchi, expiratory wheezing ABDOMEN: Soft, nontender . No guarding. no masses palpable. Bowel sounds heard. LEGS: mild edema. PSYCHIATRY: Alert and oriented -3, mood and affect normal. NERVOUS SYSTEM: Cranial N 2-12 grossly normal. Moves all 4 limbs. Diffuse weakness No focal deficits. Lymphatic system. No LN neck axilla or groin. - Labs CBC & Chem 7: 04/24/18 07:00 04/24/18 07:00 Labs: Abnormal Lab Results - Last 24 Hours (Table) 04/22/18 04/23/18 04/23/18 Range/Units 21:11 06:57 08:06 WBC 14.8 H (3.8-10.6) k/uL RBC 3.36 L (3.80-5.40) m/uL Hgb 11.1 L (11.4-16.0) gm/dL MCV 105.0 H (80.0-100.0) fL RDW 16.2 H (11.5-15.5) % Neutrophils # 14.0 H (1.3-7.7) k/uL Lymphocytes # 0.3 L (1.0-4.8) k/uL Carbon Dioxide (22-30) mmol/L BUN (7-17) mg/dL Glucose (74-99) mg/dL POC Glucose (mg/dL) 126 H 129 H (75-99) mg/dL 04/23/18 04/23/18 04/23/18 Range/Units 08:06 11:55 17:10 WBC (3.8-10.6) k/uL RBC (3.80-5.40) m/uL Hgb (11.4-16.0) gm/dL MCV (80.0-100.0) fL RDW (11.5-15.5) % Neutrophils # (1.3-7.7) k/uL Lymphocytes # (1.0-4.8) k/uL Carbon Dioxide 36 H (22-30) mmol/L BUN 33 H (7-17) mg/dL Glucose 135 H (74-99) mg/dL POC Glucose (mg/dL) 170 H 247 H (75-99) mg/dL Microbiology - Last 24 Hours (Table) 04/21/18 15:54 Gram Stain - Final Sputum Sputum Culture - Final Assessment and Plan Assessment: 1. Acute COPD exacerbation with possible left lower lobe bronchopneumonia gram- negative. Severe advanced end-stage COPD. 2. Leukocytosis secondary to the above 3. Chronic respiratory failure on 3 L nasal cannula at home 4. History of nicotine dependence 5. Acute on chronic hypoxic, hypercapnic respiratory failure secondary to #1 Plan: Continue current medication regime ,monitoring and symptomatic treatment. Maintain nebulized bronchodilators, antibiotics, Diflucan, steroids. pt/ot. Currently being evaluated by subacute rehab.Follow closely with pulmonary. Discharge planning in progress possibly tomorrow to subacute rehab if patient accepted. The impression and plan of care has been dictated as directed. : I performed a history and examination of this patient, discussed the same with the dictator. I agree with the dictator's note ,documented as a scribe. Any additional findings or plans will be noted.
[2018-04-24 21:11] LABS: Glucose,Whole Blood 193 mg/dL (75-99)
[2018-04-24] MEDS: NYSTATIN 100,000 UNIT/ML SUSP 500,000 UNIT/5 ML CUP PO SCH (21:25)
[2018-04-24 23:23] VITALS: TEMP 97.4
[2018-04-25] MEDS: methylPREDNISolone SOD SUCCI 125 MG/2 ML VIAL IV SCH ×3 (00:51→12:15)
[2018-04-25 06:08] VITALS: BP 154/83; RESP 15
[2018-04-25] MEDS: FORMOTEROL FUMARATE 20 MCG/2 ML NEBU INHALATION SCH (07:14)
[2018-04-25] MEDS: IPRATROPIUM-ALBUTEROL 3 ML NEB INHALATION SCH ×3 (07:14→15:51)
[2018-04-25] MEDS: BUDESONIDE 0.5 MG/2 ML NEBU INHALATION SCH (07:14)
[2018-04-25 07:16] LABS: Glucose,Whole Blood 141 mg/dL (75-99)
[2018-04-25] MEDS: AMPHETAMINE PO SCH (08:17)
[2018-04-25] MEDS: DEXTROAMPHETAMINE PO SCH (08:17)
[2018-04-25] MEDS: NICOTINE 21MG/24HR PATCH TRANSDERM SCH (08:18)
[2018-04-25] MEDS: guaiFENesin-DM 600/30MG 1 EACH TAB.ER.12H PO SCH (08:19)
[2018-04-25] MEDS: POLYETHYLENE GLYCOL 3350 17 GM POWD.PACK PO SCH (08:19)
[2018-04-25] MEDS: AZITHROMYCIN 500 MG TAB PO SCH (08:19)
[2018-04-25] MEDS: PANTOPRAZOLE 40 MG TABLET PO SCH (08:19)
[2018-04-25] MEDS: ENOXAPARIN 40 MG/0.4 ML SYRINGE SQ SCH (08:19)
[2018-04-25] MEDS: FLUCONAZOLE 100 MG TAB PO SCH (08:19)
[2018-04-25] MEDS: NYSTATIN 100,000 UNIT/ML SUSP 500,000 UNIT/5 ML CUP PO SCH ×2 (08:19→12:15)
[2018-04-25] MEDS: INSULIN ASPART 100 UNIT/ML 1 ML 10 ML VIAL SQ SCH ×2 (08:19→12:15)
[2018-04-25] MEDS: LISINOPRIL 20 MG TAB PO SCH (08:19)
[2018-04-25] MEDS: SODIUM CHLORIDE 0.9% 1,000 ML IV SCH (08:19)
[2018-04-25 11:06] VITALS: PULSE 95
[2018-04-25 11:49] LABS: Glucose,Whole Blood 136 mg/dL (75-99)
[2018-04-25] MEDS: THIAMINE 100 MG TAB PO SCH (12:15)
[2018-04-25] MEDS: MULTIVITAMINS, THERA 1 EACH TAB PO SCH (12:15)
--- NOTE | 2018-04-25 12:27 | P.PN ---
Subjective Progress Note Date: 04/25/18 Principal diagnosis: Acute on chronic hypoxic respiratory failure secondary to an acute exacerbation of chronic obstructive pulmonary disease This is a very pleasant 63-year-old female patient who follows with Dr. Mijares as her primary care physician. She has a history of rheumatoid arthritis, hypertension, daily alcohol use, obesity. Chest has a history of severe Gold stage IV chronic obstructive pulmonary disease. Her FEV1 value is 27% of predicted. Now oxygen dependent. Continue and ongoing tobacco dependence. She has had ongoing issues with cost in the ability to pay for her inhalers in the outpatient setting. She has had multiple admissions for exacerbation of her COPD as recently as last week and had undergone a bronchoscopy with BAL which revealed no growth other than Erica. She was discharged home on 2017. She presented again here early this morning to the emergency room with recurrent episode of increasing shortness of breath, cough and congestion. Chest x-ray shows minimal infiltrate along the lung base. White count 15.4. Hemoglobin 12.2. Creatinine 0.70. Bicarb 30. She's been afebrile. Slightly tachycardic. Maintain O2 saturations in the mid to upper 90s on 2 L/m per nasal cannula. The patient is seen again today 04/20/2018 in follow-up on the regular medical floor. She remains awake and alert in no acute distress. She is breathing better today as compared to yesterday. Still not back to her baseline. She is maintaining O2 saturation in the low 90s on room air. She's been afebrile. Computed tomography scan of the chest reveals no pulmonary abnormalities other than a stable tiny nodular density in the right upper lobe. There is multiple thoracic compression fractures noted. White count 12.9. Hemoglobin 10.5. Creatinine 0.62. He is continued on IV Solu-Medrol, bronchodilators, antibiotics in the form of azithromycin. On the patient is looking well. No specific complaints. Less short of breath compared to yesterday. Slowly improving. No significant chest pain. A bit lethargic and sleepy. No other significant events overnight. No fever or chills. She was able to give me a sputum sample for analysis and and the cultures still pending for now. On 04/22/2018 patient seen in follow-up on medical surgical floor. In no acute distress, she is resting in bed, appears generally swollen. Denies any worsening dyspnea, denies any chest pain. She has occasional cough, with production of brownish yellow sputum. Denies any fever or chills, sputum culture is pending at this time, pulse ox on 2 L per nasal cannula was 98%, she is slightly tachycardic with a heart rate in the low 100s. Today's labs were reviewed, WBC is 17.9, CO2 is 31, Bun is 35, creatinine 0.77. Patient is being treated with empiric antibiotics in the form of Zithromax, she remains on Diflucan, she is receiving cough syrup, and nebulized bronchodilators for her acute COPD exacerbation. On 04/23/2018 patient seen in follow-up on medical surgical floor. She is sitting up in the chair, eating breakfast, states she slowly improving, lung sounds are diminished, with diffuse wheezing bilaterally. Patient has a congested cough, with production of brownish and greenish phlegm, appears generally swollen, this is probably due to of steroids. Her when necessary dose of oral Lasix was given this morning. Her left ankle is a bit more swollen than the right, no pedal edema or or pretibial edema. Sputum culture showed moderate normal respiratory patricia, fever or chills, patient does get dyspneic with any exertion, but overall is making slow improvement. Her lab work was reviewed, white count is trending down, and is down to 14.8, hemoglobin is 11.1, sodium is 143, potassium is 4.7, chloride is 104, CO2 is 36 , BUN is 33, and creatinine is 0.74. On 04/23/2018 patient seen in follow-up on medical surgical floor. Improve, denies any worsening dyspnea, she is been ambulating about the room, tolerating it fairly well. Lung sounds are positive for scattered wheezes, but overall there is better air entry noted bilaterally, likely patient reports improvement , less chest tightness, S wheezing and less chest congestion. Sinus on 3 L per nasal cannula is 96%, vital signs are stable, patient is afebrile, today's lab work shows WBC of 12.6, hemoglobin is 10.6, BMP today. No new chest x-rays. Sputum culture is negative. Continue current medical treatment, discharge planning is working on getting preapproval for placement to ECF, however the patient may not qualify. Patient states if she does get discharged home, she currently has no air conditioning, and it is in the process of being installed and may take another couple of days. On 04/24/2018 patient seen again in follow-up. She continues to improve, room air pulse ox is 95%, but patient wears oxygen intermittently, vital signs are stable, she is afebrile, lung sounds are positive for scattered expiratory wheezing, overall this is improving, Better air movement noted bilaterally. Occasional cough, with production of whitish yellowish sputum, sputum culture just showed moderate normal respiratory patricia. Today's blood work was reviewed , to PVCs 12.6, hemoglobin is 10.6, CO2 is 41, BUN is 35, creatinine 0.74. Clinically patient is improving, increase activity as tolerated, from pulmonary/ critical care standpoint she is stable for discharge to ECF if she qualifies, or home with home care if that can be arranged. Patient states she is planning on going to stay with her sister for a while after discharge. Objective - Vital Signs Vital signs: Vital Signs Temp 97.4 F L 04/25/18 06:07 Pulse 95 04/25/18 11:05 Resp 15 04/25/18 06:07 BP 154/83 04/25/18 06:07 Pulse Ox 95 04/25/18 06:07 Intake & Output 04/24/18 04/25/18 04/25/18 18:59 06:59 18:59 Intake Total 200 300 Balance 200 300 Intake: Oral 200 300 Other: Voiding Method Toilet # Voids 2 1 2 # Bowel Movements 0 - Exam - Constitutional General appearance: mild distress, morbidly obese, appears generally swollen - EENT Eyes: EOMI, PERRLA ENT: hearing grossly normal Ears: bilateral: normal - Neck Neck: normal ROM Carotids: bilateral: upstroke normal Thyroid: bilateral: normal size - Respiratory Respiratory: bilateral: diminished, wheezing, prolonged expiration - Cardiovascular Rhythm: regular Heart sounds: normal: S1, S2 - Gastrointestinal General gastrointestinal: no organomegaly, soft, no tenderness - Integumentary Integumentary: flushed, normal turgor - Neurologic Neurologic: CNII-XII intact - Musculoskeletal Musculoskeletal: generalized weakness - Psychiatric Psychiatric: A&O x's 3, appropriate affect, intact judgment & insight - Labs CBC & Chem 7: 04/24/18 07:00 04/24/18 07:00 Labs: Abnormal Lab Results - Last 24 Hours (Table) 04/24/18 04/24/18 04/24/18 Range/Units 07:00 17:04 21:03 Carbon Dioxide 41 H* (22-30) mmol/L BUN 35 H (7-17) mg/dL Glucose 145 H (74-99) mg/dL POC Glucose (mg/dL) 153 H 193 H (75-99) mg/dL 04/25/18 04/25/18 Range/Units 07:06 11:43 Carbon Dioxide (22-30) mmol/L BUN (7-17) mg/dL Glucose (74-99) mg/dL POC Glucose (mg/dL) 141 H 136 H (75-99) mg/dL Assessment and Plan Plan: Assessment: #1 Acute on chronic hypoxic respiratory failure secondary to an acute exacerbation of chronic obstructive pulmonary disease. #2 Frequent admissions for COPD exacerbations. #3 Severe advanced Gold stage IV chronic obstructive pulmonary disease with baseline FEV1 value 27% of predicted. #4 Acute on chronic hypercapnic respiratory failure secondary to above. #5 Chronic and ongoing tobacco dependence. #6 Rheumatoid arthritis. #7 Hypertension. #8 History of depression. #9 History of right colectomy in June 2017 for small bowel obstruction with subsequent wound dehiscence and reclosure. #10 History of vulvar cancer with resection, hysterectomy. #11 Daily alcohol use. Plan Patient is improving, vital signs are stable, no acute events overnight, she has been treated with high-dose steroids, Zithromax, and the patient has completed a 5 day course of Zithromax. She remains on Diflucan, and nebulized bronchodilators. From pulmonary standpoint she is stable for discharge either to a subacute rehab if she qualifies, or home with home care. We will stop the Zithromax, and the patient can her previous regimen of the stools of Zithromax 250 every other day on Sunday, Sunday, Sunday schedule which she was on for prophylactic reasons, and her maintenance inhalers and nebulized treatments. Follow-up with Dr. Goodman in the office in one week I performed a history & physical examination of the patient and discussed their management with my nurse practitioner, Savanah Mart. I reviewed the nurse practitioner's note and agree with the documented findings and plan of care. Lung sounds are positive for diffuse wheezes throughout the lung guzman. The findings and the impression was discussed with the patient. I attest to the documentation by the nurse practitioner. Time with Patient: Less than 30
[2018-04-25 15:44] VITALS: BMI 28.7
[2018-04-25] MEDS ORDERED: methylPREDNISolone SOD SUCCI 40 MG/ML 1 ML VIAL IV SCH (16:00)
--- NOTE | 2018-04-25 19:06 | P.PN ---
Subjective Progress Note Date: 04/24/18 Progress note being dictated for Dr. Durga Kramer history: This is a 63-year-old female admitted with acute severe COPD exacerbation and multiple other medical issues. Maintained on Zithromax, Diflucan, nebulized bronchodilators. Breathing slowly improving. Productive cough with dark yellow sputum. Sputum culture pending. Maintaining O2 sats in the high 90s on 2 L nasal cannula. Afebrile. 04/23/2018 breathing mildly improved, congested productive cough with greenish brownish sputum reported. Complains of exertional shortness of breath. Sputum culture reporting normal respiratory patricia. 04/24/2018 breathing continues to improve. Tolerating minimal exertion. Afebrile, sputum culture negative. Maintaining O2 sats of 96% on 3 L nasal cannula. Patient was agreeable to subacute rehab but did not qualify. Objective - Vital Signs Vital signs: Vital Signs Temp 96.9 F L 04/24/18 15:00 Pulse 102 H 04/24/18 20:40 Resp 20 04/24/18 15:00 BP 160/84 04/24/18 15:00 Pulse Ox 94 L 04/24/18 15:00 Intake & Output 04/24/18 04/24/18 04/25/18 06:59 18:59 06:59 Intake Total 440 200 Balance 440 200 Intake: Oral 440 200 Other: # Voids 2 2 # Bowel Movements 0 - Exam PHYSICAL EXAM: VITAL SIGNS: As above GENERAL: Sitting up in bed, respiratory effort increased HEENT: Conjunctivae normal. eyes normal. Oral mucosa moist NECK: No JVD. No thyroid enlargement. No LNs CARDIOVASCULAR: S1, S2 muffled. No murmur RESPIRATION: Breath sounds diminished in the bases. Scattered rhonchi, expiratory wheezing ABDOMEN: Soft, nontender . No guarding. no masses palpable. Bowel sounds heard. LEGS: mild edema. PSYCHIATRY: Alert and oriented -3, mood and affect normal. NERVOUS SYSTEM: Cranial N 2-12 grossly normal. Moves all 4 limbs. Diffuse weakness No focal deficits. Lymphatic system. No LN neck axilla or groin. - Labs CBC & Chem 7: 04/24/18 07:00 04/24/18 07:00 Labs: Abnormal Lab Results - Last 24 Hours (Table) 04/24/18 04/24/18 04/24/18 Range/Units 06:57 07:00 07:00 WBC 12.6 H (3.8-10.6) k/uL RBC 3.22 L (3.80-5.40) m/uL Hgb 10.6 L (11.4-16.0) gm/dL Hct 32.8 L (34.0-46.0) % MCV 101.9 H (80.0-100.0) fL Neutrophils # 11.9 H (1.3-7.7) k/uL Lymphocytes # 0.2 L (1.0-4.8) k/uL Carbon Dioxide 41 H* (22-30) mmol/L BUN 35 H (7-17) mg/dL Glucose 145 H (74-99) mg/dL POC Glucose (mg/dL) 142 H (75-99) mg/dL 04/24/18 04/24/18 Range/Units 11:31 17:04 WBC (3.8-10.6) k/uL RBC (3.80-5.40) m/uL Hgb (11.4-16.0) gm/dL Hct (34.0-46.0) % MCV (80.0-100.0) fL Neutrophils # (1.3-7.7) k/uL Lymphocytes # (1.0-4.8) k/uL Carbon Dioxide (22-30) mmol/L BUN (7-17) mg/dL Glucose (74-99) mg/dL POC Glucose (mg/dL) 170 H 153 H (75-99) mg/dL Assessment and Plan Assessment: 1. Acute COPD exacerbation with possible left lower lobe bronchopneumonia gram- negative. Severe advanced end-stage COPD. 2. Leukocytosis secondary to the above 3. Chronic respiratory failure on 3 L nasal cannula at home 4. History of nicotine dependence 5. Acute on chronic hypoxic, hypercapnic respiratory failure secondary to #1 Plan: Continue current medication regime ,monitoring and symptomatic treatment. Maintain nebulized bronchodilators, antibiotics, Diflucan, steroids. pt/ot. Follow closely with pulmonary. Discharge planning in progress possibly tomorrow , pending pulmonary clearance. The impression and plan of care has been dictated as directed. : I performed a history and examination of this patient, discussed the same with the dictator. I agree with the dictator's note ,documented as a scribe. Any additional findings or plans will be noted.
--- NOTE | 2018-04-25 19:13 | P.DS ---
Providers Date of admission: 04/19/18 06:57 Expected date of discharge: 04/25/18 Attending physician: Liliana Canela. Final Diagnoses: 1. Acute COPD exacerbation with possible left lower lobe bronchopneumonia gram- negative. Severe advanced end-stage COPD. 2. Leukocytosis secondary to the above 3. Chronic respiratory failure on 3 L nasal cannula at home 4. History of nicotine dependence 5. Acute on chronic hypoxic, hypercapnic respiratory failure secondary to #1 Hospital course:This is a 63-year-old female admitted with acute severe COPD exacerbation and multiple other medical issues. Maintained on Zithromax, Diflucan, nebulized bronchodilators. Breathing slowly improving. Productive cough with dark yellow sputum. Sputum culture pending. Maintaining O2 sats in the high 90s on 2 L nasal cannula. Afebrile. 04/23/2018 breathing mildly improved, congested productive cough with greenish brownish sputum reported. Complains of exertional shortness of breath. Sputum culture reporting normal respiratory patricia. 04/24/2018 breathing continues to improve. Tolerating minimal exertion. Afebrile, sputum culture negative. Maintaining O2 sats of 96% on 3 L nasal cannula. Patient was agreeable to subacute rehab but did not qualify. 04/25/2018 continued improvement on high-dose steroids, Zithromax, nebulized bronchodilators, Diflucan, cleared for discharge by pulmonary. Patient is being discharged home in a stable condition with guarded prognosis. EXAM: GENERAL: Alert and oriented 3 , no acute distress CARDIOVASCULAR: S1, S2 muffled. No murmur RESPIRATION: Breath sounds diminished in the bases. Scattered rhonchi, last expiratory wheezing ABDOMEN: Soft, nontender . No guarding. no masses palpable. Bowel sounds heard. NERVOUS SYSTEM: No focal deficits. The impression and plan of care has been dictated as directed. : I performed a history and examination of this patient, discussed the same with the dictator. I agree with the dictator's note ,documented as a scribe. Any additional findings or plans will be noted. Time taken: 35 minutes Consults: 04/19/18 06:57 Consult Physician Routine Consulting Provider: Jose Elias Goodman Consult Reason/Comments: known Do you want consulting provider notified?: Yes Primary care physician: Maryana Sheth Patient Condition at Discharge: Good Plan - Discharge Summary Discharge Rx Participant: Yes New Discharge Prescriptions: New Fluconazole [Diflucan] 100 mg PO DAILY #5 tab Nicotine 21Mg/24Hr Patch [Habitrol] 1 patch TRANSDERM DAILY #30 patch predniSONE 10 mg PO DIRECTED #30 tab Sodium Chloride 0.65% Nasal [Deep Sea (Saline)] 2 spray NASAL QID PRN spray PRN Reason: Dry Nasal Passages Azithromycin [Zithromax] 250 mg PO DIRECTED #1 tab Budesonide [Pulmicort] 0.5 mg INHALATION BID 90 Days #6 box Continue Benazepril HCl 20 mg PO QAM Furosemide [Lasix] 40 mg PO DAILY PRN PRN Reason: Edema Etanercept [Enbrel] 50 mg SQ Q14D HYDROcodone/APAP 10-325MG [[place] 10-325] 1 tab PO TID PRN PRN Reason: Moderate To Severe Pain Polyethylene Glycol 3350 [Miralax] 17 gm PO DAILY Formoterol Fumarate [Perforomist] 20 mcg INHALATION RT-BID Budesonide [Pulmicort] 0.5 mg INHALATION RT-BID Dextroamphetamine/Amphetamine [Adderall Xr] 15 mg PO QAM diphenhydrAMINE [Benadryl] 50 mg PO HS Artificial Tears-Hypromellose [Artificial Tear Drops] 1 drops BOTH EYES TID PRN bottle PRN Reason: Dry Eye(S) Montelukast [Singulair] 10 mg PO HS #30 tab Nystatin 100,000 Unit/ml Susp [Mycostatin Oral Susp] 500,000 unit PO QID # 100 ml Multivit-Min/FA/Lycopen/Lutein [Centrum Silver Tablet] 1 tab PO DAILY guaiFENesin [Mucinex] 600 mg PO Q12HR PRN PRN Reason: Congestion Thiamine [Vitamin B-1] 100 mg PO DAILY@1200 Changed Ibuprofen [Motrin] 400 mg PO Q6H PRN #0 PRN Reason: Pain Ipratropium-Albuterol Nebulize [Duoneb 0.5 mg-3 mg/3 ml Soln] 3 ml INHALATION QID #0 Discontinued Azithromycin [Zithromax] 500 mg PO DAILY #10 tab predniSONE See Taper PO DAILY Discharge Medication List Benazepril HCl 20 mg PO QAM 01/24/16 [History] Furosemide [Lasix] 40 mg PO DAILY PRN 08/03/17 [History] Etanercept [Enbrel] 50 mg SQ Q14D 07/12/17 [History] HYDROcodone/APAP 10-325MG [[place] 10-325] 1 tab PO TID PRN 12/29/17 [History] Budesonide [Pulmicort] 0.5 mg INHALATION RT-BID 04/02/18 [History] Dextroamphetamine/Amphetamine [Adderall Xr] 15 mg PO QAM 04/02/18 [History] Formoterol Fumarate [Perforomist] 20 mcg INHALATION RT-BID 04/02/18 [History] Polyethylene Glycol 3350 [Miralax] 17 gm PO DAILY 04/02/18 [History] diphenhydrAMINE [Benadryl] 50 mg PO HS 04/02/18 [History] Artificial Tears-Hypromellose [Artificial Tear Drops] 1 drops BOTH EYES TID PRN bottle 04/12/18 [Rx] Montelukast [Singulair] 10 mg PO HS #30 tab 04/12/18 [Rx] Nystatin 100,000 Unit/ml Susp [Mycostatin Oral Susp] 500,000 unit PO QID #100 ml 04/12/18 [Rx] Multivit-Min/FA/Lycopen/Lutein [Centrum Silver Tablet] 1 tab PO DAILY 04/19/18 [ History] Thiamine [Vitamin B-1] 100 mg PO DAILY@1200 04/19/18 [History] guaiFENesin [Mucinex] 600 mg PO Q12HR PRN 04/19/18 [History] Azithromycin [Zithromax] 250 mg PO DIRECTED #1 tab 04/25/18 [Rx] Budesonide [Pulmicort] 0.5 mg INHALATION BID 90 Days #6 box 04/25/18 [Rx] Fluconazole [Diflucan] 100 mg PO DAILY #5 tab 04/25/18 [Rx] Ibuprofen [Motrin] 400 mg PO Q6H PRN #0 04/25/18 [Rx] Ipratropium-Albuterol Nebulize [Duoneb 0.5 mg-3 mg/3 ml Soln] 3 ml INHALATION QID #0 04/25/18 [Rx] Nicotine 21Mg/24Hr Patch [Habitrol] 1 patch TRANSDERM DAILY #30 patch 04/25/18 [ Rx] Sodium Chloride 0.65% Nasal [Deep Sea (Saline)] 2 spray NASAL QID PRN spray [Rx] predniSONE 10 mg PO DIRECTED #30 tab 04/25/18 [Rx] Follow up Appointment(s)/Referral(s): Meryl Mijares MD [Primary Care Provider] - 05/06/18 1:10 pm [facility], [NON-STAFF] - Jose Elias Goodman MD [STAFF PHYSICIAN] - 05/09/18 2:00 pm Ambulatory/Diagnostic Orders: Complete Blood Count w/diff [LAB.AMB] Time Frame: 3 Days, Location: None Selected Patient Instructions/Handouts: Depression (DC), COPD (Chronic Obstructive Pulmonary Disease) (DC) Activity/Diet/Wound Care/Special Instructions: No smoking-cessation information provided. Diet: Cardiac Activity: Limited until follow up Care Plan Goals (MU): [facility] arranged to deliver concentrator: #[phone] Discharge Disposition: HOME WITH HOME HEALTH SERVICES
== END 2018-04-25 15:52 | disposition home health service (06) | DRG 177 ==
LOC: EC 05:47 → 4MS4W 06:57
PROVIDERS: ADMIT Hospitalist; ATTEND Hospitalist
DX: J15.6 Pneumonia due to other Gram-negative bacteria (principal); J96.21 Acute and chronic respiratory failure with hypoxia; J96.22 Acute and chronic respiratory failure with hypercapnia; J44.1 Chronic obstructive pulmonary disease with (acute) exacerbation; M48.54XA Collapsed vertebra, not elsewhere classified, thoracic region, initial encounter for fracture; F17.200 Nicotine dependence, unspecified, uncomplicated; F32.9 Major depressive disorder, single episode, unspecified; F40.240 Claustrophobia; F90.9 Attention-deficit hyperactivity disorder, unspecified type; I10 Essential (primary) hypertension; M06.9 Rheumatoid arthritis, unspecified; M81.0 Age-related osteoporosis without current pathological fracture; M10.9 Gout, unspecified; M19.90 Unspecified osteoarthritis, unspecified site; E66.01 Morbid (severe) obesity due to excess calories; Z68.28 Body mass index [BMI] 28.0-28.9, adult; Z79.899 Other long term (current) drug therapy; Z99.81 Dependence on supplemental oxygen; Z96.651 Presence of right artificial knee joint; Z90.710 Acquired absence of both cervix and uterus; Z90.49 Acquired absence of other specified parts of digestive tract; Z87.01 Personal history of pneumonia (recurrent); Z86.010 Personal history of colon polyps; Z85.44 Personal history of malignant neoplasm of other female genital organs; Z85.89 Personal history of malignant neoplasm of other organs and systems; Z72.89 Other problems related to lifestyle; Z88.5 Allergy status to narcotic agent; Z88.8 Allergy status to other drugs, medicaments and biological substances; Z80.0 Family history of malignant neoplasm of digestive organs; Z80.49 Family history of malignant neoplasm of other genital organs
CPT/HCPCS: 36415; 71045; 71260; 80048; 80053; 82550; 82553; 83036; 83735; 83880; 84484; 85025; 85610; 85730; 87070; 87205; 93005; 94640; 94644; 94760; 96361; 96372; 96374; 96375; 99285

== ENCOUNTER 2018-07-21 18:11 | Inpatient (IN) | payer MEDICARE, OTHER ==
[2018-07-21] MEDS ORDERED: IPRATROPIUM-ALBUTEROL 3 ML NEB INHALATION STA (18:14)
[2018-07-21] MEDS ORDERED: SODIUM CHLORIDE 0.9% 1,000 ML IV STA (18:14)
[2018-07-21] MEDS ORDERED: methylPREDNISolone SOD SUCCI 125 MG/2 ML VIAL IV STA (18:14)
[2018-07-21] MEDS ORDERED: MAGNESIUM SULFATE-D5W PMX 1 GM in DEXTROSE/WATER 1 100ML.BAG IVPB STA (18:14)
--- NOTE | 2018-07-21 18:18 | ED ---
SOB HPI - General Stated Complaint: alfonso Time Seen by Provider: 07/21/18 18:14 Source: patient, EMS, RN notes reviewed Mode of arrival: EMS - History of Present Illness Initial Comments: This is a 63-year-old female history of COPD/emphysema who is had source of breath is getting worse over last 24 hours she's had a cough with yellow phlegm chills chest tightness she fell he called EMS when her home medication did not work she get 1 DuoNeb and route she still very dyspneic she denies any fevers or sweats no nausea vomiting or other symptoms. She is on 2 L of oxygen to to have liters of oxygen at home. MD Complaint: shortness of breath, cough - Related Data Home Medications Medication Instructions Recorded Confirmed Benazepril HCl 20 mg PO QAM 01/24/16 07/21/18 Furosemide [Lasix] 40 mg PO DAILY PRN 05/31/17 07/21/18 HYDROcodone/APAP 10-325MG [[place] 1 tab PO TID PRN 12/29/17 07/21/18 10-325] Budesonide [Pulmicort] 0.5 mg INHALATION RT-BID 04/02/18 07/21/18 Dextroamphetamine/Amphetamine 15 mg PO QAM 04/02/18 07/21/18 [Adderall Xr] Formoterol Fumarate [Perforomist] 20 mcg INHALATION RT-BID 04/02/18 07/21/18 Polyethylene Glycol 3350 [Miralax] 17 gm PO DAILY 04/02/18 07/21/18 diphenhydrAMINE [Benadryl] 50 mg PO HS 04/02/18 07/21/18 Multivit-Min/FA/Lycopen/Lutein 1 tab PO DAILY 04/19/18 07/21/18 [Centrum Silver Tablet] guaiFENesin [Mucinex] 600 mg PO Q12HR PRN 04/19/18 07/21/18 Albuterol Sulfate [Proair Hfa] 1 - 2 puff INHALATION RT-Q6H PRN 07/21/18 Ipratropium-Albuterol Nebulize 3 ml INHALATION RT-QID 07/21/18 07/21/18 [Duoneb 0.5 mg-3 mg/3 ml Soln] Tetrahydrozoline 0.05% Ophth 1 drop BOTH EYES QID 07/21/18 07/21/18 [Visine Eye Drops] amLODIPine [Norvasc] 5 mg PO DAILY 07/21/18 07/21/18 Previous Rx's Medication Instructions Recorded Montelukast [Singulair] 10 mg PO HS #30 tab 04/12/18 Nystatin 100,000 Unit/ml Susp 500,000 unit PO QID #100 ml 04/12/18 [Mycostatin Oral Susp] Sodium Chloride 0.65% Nasal [Deep 2 spray NASAL QID PRN spray 04/25/18 Sea (Saline)] Allergies Allergy/AdvReac Type Severity Reaction Status Date / Time infliximab [From Remicade] Allergy Dyspnea/HIV Verified 07/21/18 18:27 ES procaine [From Novocain] Allergy Unknown Verified 07/21/18 18:27 propoxyphene HCl Allergy Unknown Verified 07/21/18 18:27 [From Darvon] Review of Systems ROS Statement: Those systems with pertinent positive or pertinent negative responses have been documented in the HPI. ROS Other: All systems not noted in ROS Statement are negative. Past Medical History Past Medical History: Cancer, COPD, Hypertension, Pneumonia, Rheumatoid Arthritis (RA) Additional Past Medical History / Comment(s): History of rectal bleed, vulva cancer, UTI, colitis, benign polyps, gout, osteopenia, sinus/seasonal allergies , ca of appendix. History of Any Multi-Drug Resistant Organisms: None Reported Past Surgical History: Hysterectomy, Joint Replacement Additional Past Surgical History / Comment(s): right knee replacement, surgery to recome vulva cancer, EGD/colonoscopy, lasik eye surgery, right colectomy r/t SBO (wound dehiscence/closure). Past Anesthesia/Blood Transfusion Reactions: No Reported Reaction Additional Past Anesthesia/Blood Transfusion Reaction / Comment(s): Claustrophobia Past Psychological History: Depression Smoking Status: Former smoker Past Alcohol Use History: Daily Past Drug Use History: None Reported - Past Family History Father Family Medical History: Cancer Additional Family Medical History / Comment(s): COLON Mother Family Medical History: Cancer Additional Family Medical History / Comment(s): ESOPHAGUS Sister(s) Family Medical History: Cancer Additional Family Medical History / Comment(s): CERVICAL General Exam - General Exam Comments Initial Comments: This is a well-developed well-nourished awake alert oriented 3 female General appearance: alert, anxious, in distress Head exam: Present: atraumatic, normocephalic, normal inspection Eye exam: Present: normal appearance, PERRL, EOMI. Absent: scleral icterus, conjunctival injection, periorbital swelling ENT exam: Present: mucous membranes dry Neck exam: Present: normal inspection. Absent: tenderness, meningismus, lymphadenopathy Respiratory exam: Present: wheezes (Diffuse wheezing), accessory muscle use, decreased breath sounds. Absent: respiratory distress, rales, rhonchi, stridor Cardiovascular Exam: Present: normal rhythm, tachycardia, normal heart sounds. Absent: systolic murmur, diastolic murmur, rubs, gallop, clicks GI/Abdominal exam: Present: soft, normal bowel sounds. Absent: distended, tenderness, guarding, rebound, rigid Extremities exam: Present: normal inspection, full ROM, normal capillary refill. Absent: tenderness, pedal edema, joint swelling, calf tenderness Back exam: Present: normal inspection Neurological exam: Present: alert, oriented X3, CN II-XII intact Psychiatric exam: Present: normal affect, normal mood Skin exam: Present: warm, dry, intact, normal color. Absent: rash Course Vital Signs 07/21/18 07/21/18 07/21/18 18:16 18:28 19:38 Temperature 98.6 F Pulse Rate 111 H 102 H 85 Respiratory 22 22 Rate Blood Pressure 140/96 140/96 O2 Sat by Pulse 98 96 Oximetry - Reevaluation(s) Reevaluation #1: 07/21/18 18:49 Reevaluation patient finds that she states she feels a little bit better she still has diffuse wheezing is still using accessory muscles. Saturation 93 on oxygen Reevaluation #2: 07/21/18 19:45 Patient does have some mild improvement in her pulse oximetry she still dyspneic using accessory muscles she does have a better inspiratory effort still marked amount of diffuse wheezing however. Medical Decision Making - Medical Decision Making I did discuss findings with patient family members face will be admitted with pulmonary consultation. Case is discussed with the admitting physician - Lab Data Result diagrams: 07/21/18 18:23 07/21/18 18:23 Lab Results 07/21/18 07/21/18 07/21/18 Range/Units 18:23 18:23 18:23 WBC 12.1 H (3.8-10.6) k/uL RBC 4.10 (3.80-5.40) m/uL Hgb 12.9 (11.4-16.0) gm/dL Hct 41.5 (34.0-46.0) % MCV 101.4 H (80.0-100.0) fL MCH 31.5 (25.0-35.0) pg MCHC 31.1 (31.0-37.0) g/dL RDW 13.8 (11.5-15.5) % Plt Count 371 (150-450) k/uL Neutrophils % 62 % Lymphocytes % 27 % Monocytes % 6 % Eosinophils % 4 % Basophils % 0 % Neutrophils # 7.5 (1.3-7.7) k/uL Lymphocytes # 3.2 (1.0-4.8) k/uL Monocytes # 0.7 (0-1.0) k/uL Eosinophils # 0.4 (0-0.7) k/uL Basophils # 0.0 (0-0.2) k/uL Hypochromasia Slight Macrocytosis Slight PT (9.0-12.0) sec INR (<1.2) APTT (22.0-30.0) sec Sodium 144 (137-145) mmol/L Potassium (3.5-5.1) mmol/L Chloride 108 H (98-107) mmol/L Carbon Dioxide 26 (22-30) mmol/L Anion Gap 10 mmol/L BUN 6 L (7-17) mg/dL Creatinine 0.64 (0.52-1.04) mg/dL Est GFR (CKD-EPI)AfAm >90 (>60 ml/min/1.73 sqM) Est GFR (CKD-EPI)NonAf >90 (>60 ml/min/1.73 sqM) Glucose 101 H (74-99) mg/dL Plasma Lactic Acid Osmani (0.7-2.0) mmol/L Calcium 9.5 (8.4-10.2) mg/dL Magnesium 1.7 (1.6-2.3) mg/dL Total Bilirubin 0.4 (0.2-1.3) mg/dL AST 36 (14-36) U/L ALT 15 (9-52) U/L Alkaline Phosphatase 58 (38-126) U/L Total Creatine Kinase 25 L (30-135) U/L CK-MB (CK-2) 0.8 (0.0-2.4) ng/mL CK-MB (CK-2) Rel Index 3.2 Troponin I <0.012 (0.000-0.034) ng/mL NT-Pro-B Natriuret Pep pg/mL Total Protein 7.0 (6.3-8.2) g/dL Albumin 3.6 (3.5-5.0) g/dL 07/21/18 07/21/18 07/21/18 Range/Units 18:23 18:23 18:23 WBC (3.8-10.6) k/uL RBC (3.80-5.40) m/uL Hgb (11.4-16.0) gm/dL Hct (34.0-46.0) % MCV (80.0-100.0) fL MCH (25.0-35.0) pg MCHC (31.0-37.0) g/dL RDW (11.5-15.5) % Plt Count (150-450) k/uL Neutrophils % % Lymphocytes % % Monocytes % % Eosinophils % % Basophils % % Neutrophils # (1.3-7.7) k/uL Lymphocytes # (1.0-4.8) k/uL Monocytes # (0-1.0) k/uL Eosinophils # (0-0.7) k/uL Basophils # (0-0.2) k/uL Hypochromasia Macrocytosis PT 9.5 (9.0-12.0) sec INR 1.0 (<1.2) APTT 24.6 (22.0-30.0) sec Sodium (137-145) mmol/L Potassium (3.5-5.1) mmol/L Chloride (98-107) mmol/L Carbon Dioxide (22-30) mmol/L Anion Gap mmol/L BUN (7-17) mg/dL Creatinine (0.52-1.04) mg/dL Est GFR (CKD-EPI)AfAm (>60 ml/min/1.73 sqM) Est GFR (CKD-EPI)NonAf (>60 ml/min/1.73 sqM) Glucose (74-99) mg/dL Plasma Lactic Acid Osmani 1.1 (0.7-2.0) mmol/L Calcium (8.4-10.2) mg/dL Magnesium (1.6-2.3) mg/dL Total Bilirubin (0.2-1.3) mg/dL AST (14-36) U/L ALT (9-52) U/L Alkaline Phosphatase (38-126) U/L Total Creatine Kinase (30-135) U/L CK-MB (CK-2) (0.0-2.4) ng/mL CK-MB (CK-2) Rel Index Troponin I (0.000-0.034) ng/mL NT-Pro-B Natriuret Pep 865 pg/mL Total Protein (6.3-8.2) g/dL Albumin (3.5-5.0) g/dL - EKG Data -: EKG Interpreted by Me EKG shows normal: sinus rhythm (Sinus tachycardia rate 103. Interval 114 QRS duration 68 QT since QTC 352/[address] configuration frequent unifocal PVCs) - Radiology Data Radiology results: report reviewed (I did review the imaging and report no acute findings are seen), image reviewed Critical Care Time Critical Care Time: Yes Critical Care Time: 33 minutes of critical care time which includes initial presentation with history physical labs x-rays several reevaluation patient response to therapy discussed with patient family member regarding findings discussed with the admitting physician admission orders and documentation of the above. Disposition Clinical Impression: Adult respiratory distress syndrome, Acute exacerbation of chronic obstructive airways disease Disposition: ADMITTED IP TO THIS [facility] Condition: Stable Referrals: Angel Cade DO [Doctor of Osteopathic Medicine] - 1-2 days
[2018-07-21 18:34] LABS: Basophils % (A) 0 %; Eosinophils # (A) 0.4 k/uL (0-0.7); Eosinophils % (A) 4 %; HCT 41.5 % (34.0-46.0); HGB 12.9 gm/dL (11.4-16.0); Hypochromasia Slight; Lymphocytes # (A) 3.2 k/uL (1.0-4.8); Lymphocytes % (A) 27 %; MCH 31.5 pg (25.0-35.0); MCHC 31.1 g/dL (31.0-37.0); MCV 101.4 fL (80.0-100.0); Macrocytosis Slight; Mean Platelet Volume 7.7; Monocytes # (A) 0.7 k/uL (0-1.0); Monocytes % (A) 6 %; Neutrophils # (A) 7.5 k/uL (1.3-7.7); Neutrophils % (A) 62 %; Platelet Count 371 k/uL (150-450); RDW 13.8 % (11.5-15.5); WBC 12.1 k/uL (3.8-10.6)
[2018-07-21 18:47] LABS: Creatine Kinase 25 U/L (30-135)
[2018-07-21 18:48] LABS: Partial Thromboplastin Time 24.6 sec (22.0-30.0); Prothrombin Time 9.5 sec (9.0-12.0)
[2018-07-21 19:00] LABS: Creatine Kinase MB 0.8 ng/mL (0.0-2.4); Troponin I <0.012 ng/mL (0.000-0.034)
--- NOTE | 2018-07-21 19:03 | XR ---
EXAMINATION TYPE: XR chest 2V DATE OF EXAM: 07/21/2018 COMPARISON: 04/19/2018 HISTORY: 63 year-old female shortness of breath, difficulty breathing TECHNIQUE: Frontal and lateral views FINDINGS: Rightward patient rotation ultrasound and normal cardiomediastinal contours. Heart appears normal siz e. Diffuse interstitial prominence is unchanged. No consolidation or pleural effusion seen. IMPRESSION: Limited rotated exam. There are chronic changes, possible chronic bronchitis/asthma. No definite acut e process.
[2018-07-21 19:09] LABS: ALT 15 U/L (9-52); AST 36 U/L (14-36); Albumin 3.6 g/dL (3.5-5.0); Alkaline Phosphatase 58 U/L (38-126); Anion Gap 10 mmol/L; Blood Urea Nitrogen 6 mg/dL (7-17); Calcium 9.5 mg/dL (8.4-10.2); Carbon Dioxide 26 mmol/L (22-30); Chloride 108 mmol/L (98-107); Glucose 101 mg/dL (74-99); Magnesium 1.7 mg/dL (1.6-2.3); Sodium 144 mmol/L (137-145); Total Bilirubin 0.4 mg/dL (0.2-1.3)
[2018-07-21] MEDS ORDERED: FUROSEMIDE 40 MG TAB PO PRN (19:49)
[2018-07-21] MEDS: IPRATROPIUM-ALBUTEROL 3 ML NEB INHALATION SCH ×2 (20:01→23:28)
[2018-07-21] MEDS: diphenhydrAMINE 50 MG CAP PO SCH (21:19)
[2018-07-21] MEDS: MONTELUKAST 10 MG TAB PO SCH (21:54)
[2018-07-21] MEDS: SODIUM CHLORIDE 0.9% 1,000 ML IV SCH (21:54)
[2018-07-21] MEDS: NYSTATIN 100,000 UNIT/ML SUSP 500,000 UNIT/5 ML CUP PO SCH (21:54)
[2018-07-21] MEDS: TETRAHYDROZOLINE 0.05% OPHTH DROPS 15 ML BTL BOTH EYES SCH (21:55)
[2018-07-21] MEDS: HYDROcodone/APAP 10-325MG 1 EACH TAB PO PRN (21:55)
[2018-07-21 22:34] VITALS: BMI 28.7
[2018-07-21] MEDS: methylPREDNISolone SOD SUCCI 125 MG/2 ML VIAL IV SCH (23:12)
[2018-07-22] MEDS: IPRATROPIUM-ALBUTEROL 3 ML NEB INHALATION SCH ×5 (03:47→20:34)
[2018-07-22] MEDS: methylPREDNISolone SOD SUCCI 125 MG/2 ML VIAL IV SCH ×3 (06:14→18:33)
[2018-07-22] MEDS: TETRAHYDROZOLINE 0.05% OPHTH DROPS 15 ML BTL BOTH EYES SCH ×4 (10:09→21:15)
[2018-07-22] MEDS: amLODIPine 5 MG TAB PO SCH (10:09)
[2018-07-22] MEDS: LISINOPRIL 20 MG TAB PO SCH (10:09)
[2018-07-22] MEDS: NYSTATIN 100,000 UNIT/ML SUSP 500,000 UNIT/5 ML CUP PO SCH (10:09)
[2018-07-22] MEDS: AMPHETAMINE PO SCH (10:10)
[2018-07-22] MEDS: POLYETHYLENE GLYCOL 3350 17 GM POWD.PACK PO SCH (10:10)
[2018-07-22] MEDS: DEXTROAMPHETAMINE PO SCH (10:10)
[2018-07-22] MEDS: SODIUM CHLORIDE 0.9% 1,000 ML IV SCH (10:10)
[2018-07-22] MEDS: MULTIVITAMINS, THERA 1 EACH TAB PO SCH (11:19)
[2018-07-22] MEDS: HYDROcodone/APAP 10-325MG 1 EACH TAB PO PRN ×2 (11:19→19:47)
[2018-07-22] MEDS ORDERED: DOXYCYCLINE 50 MG CAP PO SCH (12:00)
--- NOTE | 2018-07-22 12:02 | P.HPIM ---
History of Present Illness this is a pleasant 63 yo F with pmh of COPD rectal bleed, gout, cancer of the appendix. Present because of dyspnea which was getting progressively worse especially over the last 3 days associated with cough and yellowish phlegm. Patient denies fever no chest pain. She has chronic back pain for months. Patient was not is also taking nystatin however she denies any oral thrush and she states she uses it only as when necessary. Patient is not steroid dependent. She has oxygen at home but she uses it only as necessary. Review of Systems CONSTITUTIONAL: No fever, no malaise, no fatigue. HEENT: No recent visual problems or hearing problems. Denied any sore throat. CARDIOVASCULAR: No orthopnea, PND, no palpitations, no syncope. PULMONARY: No shortness of breath, no cough, no hemoptysis. GASTROINTESTINAL: No diarrhea, no nausea, no vomiting, no abdominal pain. Normoactive bowel sounds. NEUROLOGICAL: No headaches, no weakness, no numbness. HEMATOLOGICAL: Denies any bleeding or petechiae. GENITOURINARY: Denies any burning micturition, frequency, or urgency. MUSCULOSKELETAL/RHEUMATOLOGICAL: Denies any joint pain, swelling, or any muscle pain. ENDOCRINE: Denies any polyuria or polydipsia. Past Medical History Past Medical History: Cancer, COPD, Hypertension, Pneumonia, Rheumatoid Arthritis (RA) Additional Past Medical History / Comment(s): History of rectal bleed, vulva cancer, UTI, colitis, benign polyps, gout, osteopenia, sinus/seasonal allergies , ca of appendix. History of Any Multi-Drug Resistant Organisms: None Reported Past Surgical History: Appendectomy, Hysterectomy, Joint Replacement Additional Past Surgical History / Comment(s): right knee replacement, surgery to recome vulva cancer, EGD/colonoscopy, lasik eye surgery, right colectomy r/t SBO (wound dehiscence/closure). Past Anesthesia/Blood Transfusion Reactions: No Reported Reaction Additional Past Anesthesia/Blood Transfusion Reaction / Comment(s): Claustrophobia Past Psychological History: Depression Additional Psychological History / Comment(s): Pt resides alone. She has home oxygen and nebulizer. She uses no assistive device. She drives. Smoking Status: Former smoker Past Alcohol Use History: Daily Additional Past Alcohol Use History / Comment(s): STATES QUIT SMOKING IN 1999, SMOKED 2 PPD SINCE AGE 12, STATES DRINKS 2-3 DRINKS A NIGHT(VODKA MIXED WITH BA AID Past Drug Use History: None Reported Additional Drug Use History / Comment(s): PAST OCC MARIJUANA- QUIT - Past Family History Father Family Medical History: Cancer Additional Family Medical History / Comment(s): COLON Mother Family Medical History: Cancer Additional Family Medical History / Comment(s): ESOPHAGUS Sister(s) Family Medical History: Cancer Additional Family Medical History / Comment(s): CERVICAL Medications and Allergies Home Medications Medication Instructions Recorded Confirmed Type Benazepril HCl 20 mg PO QAM 01/24/16 07/21/18 History Furosemide [Lasix] 40 mg PO DAILY PRN 05/31/17 07/21/18 History HYDROcodone/APAP 10-325MG [[place] 1 tab PO TID PRN 12/29/17 07/21/18 History 10-325] Budesonide [Pulmicort] 0.5 mg INHALATION RT-BID 04/02/18 07/21/18 History Dextroamphetamine/Amphetamine 15 mg PO QAM 04/02/18 07/21/18 History [Adderall Xr] Formoterol Fumarate [Perforomist] 20 mcg INHALATION RT-BID 04/02/18 07/21/18 History Polyethylene Glycol 3350 [Miralax] 17 gm PO DAILY 04/02/18 07/21/18 History diphenhydrAMINE [Benadryl] 50 mg PO HS 04/02/18 07/21/18 History Montelukast [Singulair] 10 mg PO HS #30 tab 04/12/18 07/21/18 Rx Nystatin 100,000 Unit/ml Susp 500,000 unit PO QID #100 ml 04/12/18 07/21/18 Rx [Mycostatin Oral Susp] Multivit-Min/FA/Lycopen/Lutein 1 tab PO DAILY 04/19/18 07/21/18 History [Centrum Silver Tablet] guaiFENesin [Mucinex] 600 mg PO Q12HR PRN 04/19/18 07/21/18 History Sodium Chloride 0.65% Nasal [Deep 2 spray NASAL QID PRN spray 04/25/18 Rx Sea (Saline)] Albuterol Sulfate [Proair Hfa] 1 - 2 puff INHALATION RT-Q6H PRN 07/21/18 History Ipratropium-Albuterol Nebulize 3 ml INHALATION RT-QID 07/21/18 07/21/18 History [Duoneb 0.5 mg-3 mg/3 ml Soln] Tetrahydrozoline 0.05% Ophth 1 drop BOTH EYES QID 07/21/18 07/21/18 History [Visine Eye Drops] amLODIPine [Norvasc] 5 mg PO DAILY 07/21/18 07/21/18 History Allergies Allergy/AdvReac Type Severity Reaction Status Date / Time infliximab [From Remicade] Allergy Dyspnea/HIV Verified 07/21/18 18:27 ES procaine [From Novocain] Allergy Unknown Verified 07/21/18 18:27 propoxyphene HCl Allergy Unknown Verified 07/21/18 18:27 [From Darvon] Physical Exam Vitals: Vital Signs Temp Pulse Pulse Resp BP BP Pulse Ox 07/22/18 09:07 92 07/22/18 08:56 92 07/22/18 07:00 97.5 F L 80 18 117/69 99 07/22/18 03:59 96 07/22/18 03:48 96 07/21/18 23:41 100 07/21/18 23:29 100 07/21/18 23:00 98.6 F 84 22 108/67 95 07/21/18 21:20 97.9 F 93 20 146/56 97 07/21/18 20:16 107 H 07/21/18 20:03 94 07/21/18 19:38 85 22 140/96 96 07/21/18 18:28 102 H 07/21/18 18:16 98.6 F 111 H 22 140/96 98 Intake and Output 07/21/18 07/22/18 07/22/18 22:59 06:59 14:59 Other: # Voids 2 Weight 71.2 kg GENERAL: The patient is alert and oriented x3, not in any acute distress. Well developed, well nourished. HEENT: Pupils are round and equally reacting to light. EOMI. No scleral icterus. No conjunctival pallor. Normocephalic, atraumatic. No pharyngeal erythema. No thyromegaly. CARDIOVASCULAR: S1 and S2 present. No murmurs, rubs, or gallops. -PULMONARY: Chest is clear to auscultation, no crackles. Bilateral scattered wheezing ABDOMEN: Soft, nontender, nondistended, normoactive bowel sounds. No palpable organomegaly. MUSCULOSKELETAL: No joint swelling or deformity. EXTREMITIES: No cyanosis, clubbing, or pedal edema. NEUROLOGICAL: Gross neurological examination did not reveal any focal deficits. SKIN: No rashes. Results CBC & Chem 7: 07/21/18 18:23 07/21/18 18:23 Labs: Abnormal Lab Results - Last 24 Hours (Table) 07/21/18 07/21/18 07/21/18 Range/Units 18:23 18:23 18:23 WBC 12.1 H (3.8-10.6) k/uL MCV 101.4 H (80.0-100.0) fL Chloride 108 H (98-107) mmol/L BUN 6 L (7-17) mg/dL Glucose 101 H (74-99) mg/dL Total Creatine Kinase 25 L (30-135) U/L Thrombosis Risk Factor Assmnt - Choose All That Apply Any of the Below Risk Factors Present?: Yes Each Factor Represents 1 point: Abnormal pulmonary function (COPD) Other Risk Factors: Yes Each Risk Factor Represents 2 Points: Age 61-74 years Other congenital or acquired thrombophilia - If yes, enter type in comment: No Thrombosis Risk Factor Assessment Total Risk Factor Score: 3 Thrombosis Risk Factor Assessment Level: Moderate Risk Assessment and Plan Assessment: Acute COPD exacerbation Hypertension Chronic back pain Plan: This is a pleasant 63 years old female who presents with COPD exacerbation. Continue with steroids, breathing treatment, oxygenating, and antibiotic. Continue with same treatment. Continue symptomatic treatment. Resume home medication. Monitor vitals and lites. DVT and GI prophylaxis. Further recommendations based on the clinical course of the patient DVT prophylaxis: Subcutaneous lovenox GI prophylaxis: Pepcid PT/OT: Pending Prognosis is guarded
[2018-07-22] MEDS: ENOXAPARIN 40 MG/0.4 ML SYRINGE SQ SCH (12:47)
[2018-07-22] MEDS: DOXYCYCLINE 100 MG CAP PO SCH ×2 (12:47→21:14)
--- NOTE | 2018-07-22 12:52 | P.CNPUL ---
History of Present Illness Consult date: 07/22/18 Reason for consult: dyspnea, cough, COPD, hypoxemia, abnormal CXR/CT Chief complaint: Shortness of breath History of present illness: Pulmonary consult dated 07/22/2018 This is a 63-year-old female with a known history of COPD/emphysema. The patient states for last 3-5 days she's been having increasing shortness of breath chest congestion cough yellow phlegm production chills chest tightness and overall just not feeling well. She tried using her home medication which included updrafts but unfortunately that did not seem to make any difference for her. Despite being on oxygen at home and using a number different inhalers and puffers, the patient got worse and decided to come into the emergency room where she was admitted. The patient sees Dr. Mijares as her primary. Her home medications from the pulmonary standpoint include Pulmicort solution, Singulair , DuoNeb's, Mucinex, and Perforomist. She has ALLERGIES to Remicade Novocain and Darvon. She has a previous heavy tobacco history but does not smoke currently. The patient does have frequent visits to the emergency room and multiple admissions to the hospital. She wishes in the hospital probably about a month ago or so. Review of Systems A 14 point review of system is positive for shortness of breath chest congestion cough wheezing chest tightness phlegm production and chills. These symptoms present for 3-5 days and getting worse. Past Medical History Past Medical History: Cancer, COPD, Hypertension, Pneumonia, Rheumatoid Arthritis (RA) Additional Past Medical History / Comment(s): History of rectal bleed, vulva cancer, UTI, colitis, benign polyps, gout, osteopenia, sinus/seasonal allergies , ca of appendix. History of Any Multi-Drug Resistant Organisms: None Reported Past Surgical History: Appendectomy, Hysterectomy, Joint Replacement Additional Past Surgical History / Comment(s): right knee replacement, surgery to recome vulva cancer, EGD/colonoscopy, lasik eye surgery, right colectomy r/t SBO (wound dehiscence/closure). Past Anesthesia/Blood Transfusion Reactions: No Reported Reaction Additional Past Anesthesia/Blood Transfusion Reaction / Comment(s): Claustrophobia Past Psychological History: Depression Additional Psychological History / Comment(s): Pt resides alone. She has home oxygen and nebulizer. She uses no assistive device. She drives. Smoking Status: Former smoker Past Alcohol Use History: Daily Additional Past Alcohol Use History / Comment(s): STATES QUIT SMOKING IN 1999, SMOKED 2 PPD SINCE AGE 12, STATES DRINKS 2-3 DRINKS A NIGHT(VODKA MIXED WITH BA AID Past Drug Use History: None Reported Additional Drug Use History / Comment(s): PAST OCC MARIJUANA- QUIT - Past Family History Father Family Medical History: Cancer Additional Family Medical History / Comment(s): COLON Mother Family Medical History: Cancer Additional Family Medical History / Comment(s): ESOPHAGUS Sister(s) Family Medical History: Cancer Additional Family Medical History / Comment(s): CERVICAL Medications and Allergies Home Medications Medication Instructions Recorded Confirmed Type Benazepril HCl 20 mg PO QAM 01/24/16 07/21/18 History Furosemide [Lasix] 40 mg PO DAILY PRN 05/31/17 07/21/18 History HYDROcodone/APAP 10-325MG [[place] 1 tab PO TID PRN 12/29/17 07/21/18 History 10-325] Budesonide [Pulmicort] 0.5 mg INHALATION RT-BID 04/02/18 07/21/18 History Dextroamphetamine/Amphetamine 15 mg PO QAM 04/02/18 07/21/18 History [Adderall Xr] Formoterol Fumarate [Perforomist] 20 mcg INHALATION RT-BID 04/02/18 07/21/18 History Polyethylene Glycol 3350 [Miralax] 17 gm PO DAILY 04/02/18 07/21/18 History diphenhydrAMINE [Benadryl] 50 mg PO HS 04/02/18 07/21/18 History Montelukast [Singulair] 10 mg PO HS #30 tab 04/12/18 07/21/18 Rx Nystatin 100,000 Unit/ml Susp 500,000 unit PO QID #100 ml 04/12/18 07/21/18 Rx [Mycostatin Oral Susp] Multivit-Min/FA/Lycopen/Lutein 1 tab PO DAILY 04/19/18 07/21/18 History [Centrum Silver Tablet] guaiFENesin [Mucinex] 600 mg PO Q12HR PRN 04/19/18 07/21/18 History Sodium Chloride 0.65% Nasal [Deep 2 spray NASAL QID PRN spray 04/25/18 Rx Sea (Saline)] Albuterol Sulfate [Proair Hfa] 1 - 2 puff INHALATION RT-Q6H PRN 07/21/18 History Ipratropium-Albuterol Nebulize 3 ml INHALATION RT-QID 07/21/18 07/21/18 History [Duoneb 0.5 mg-3 mg/3 ml Soln] Tetrahydrozoline 0.05% Ophth 1 drop BOTH EYES QID 07/21/18 07/21/18 History [Visine Eye Drops] amLODIPine [Norvasc] 5 mg PO DAILY 07/21/18 07/21/18 History Allergies Allergy/AdvReac Type Severity Reaction Status Date / Time infliximab [From Remicade] Allergy Dyspnea/HIV Verified 07/21/18 18:27 ES procaine [From Novocain] Allergy Unknown Verified 07/21/18 18:27 propoxyphene HCl Allergy Unknown Verified 07/21/18 18:27 [From Darvon] Physical Exam Osteopathic Statement: *. No significant issues noted on an osteopathic structural exam other than those noted in the History and Physical/Consult. Vitals: Vital Signs Temp Pulse Pulse Resp BP BP Pulse Ox 07/22/18 09:07 92 07/22/18 08:56 92 07/22/18 07:00 97.5 F L 80 18 117/69 99 07/22/18 03:59 96 07/22/18 03:48 96 07/21/18 23:41 100 07/21/18 23:29 100 07/21/18 23:00 98.6 F 84 22 108/67 95 07/21/18 21:20 97.9 F 93 20 146/56 97 07/21/18 20:16 107 H 07/21/18 20:03 94 07/21/18 19:38 85 22 140/96 96 07/21/18 18:28 102 H 07/21/18 18:16 98.6 F 111 H 22 140/96 98 Intake and Output 07/21/18 07/22/18 07/22/18 22:59 06:59 14:59 Other: # Voids 2 Weight 71.2 kg No acute distress, oriented 3, nasal O2 in place. HEENT examination is grossly unremarkable. Mucous membranes are moist. No oral lesions. Neck supple. Full range of motion. No adenopathy thyromegaly or neck vein distention. Cardiovascular examination reveals regular rhythm rate. S1-S2 normal. No S3 or S4. No discernible murmur noted. Heart sounds are distant. Lungs reveal bilateral coarse expiratory wheezes and rhonchi. There is prolongation on forced maneuver. The patient's adventitious lung sounds are more prominent on forced maneuver. No crackles. Breath sounds equal bilaterally but diminished throughout. Abdomen soft bowel sounds are heard. No masses or tenderness. Extremities are intact. No cyanosis clubbing or edema. Skin is without rash or lesion. Neurologic examination is brief but nonfocal. Results - Laboratory Findings CBC and BMP: 07/21/18 18:23 07/21/18 18:23 PT/INR, D-dimer PT 9.5 sec (9.0-12.0) 07/21/18 18: INR 1.0 (<1.2) 07/21/18 18:23 Abnormal lab findings: Abnormal Labs 07/21/18 07/21/18 07/21/18 18:23 18:23 18:23 WBC 12.1 H MCV 101.4 H Chloride 108 H BUN 6 L Glucose 101 H Total Creatine Kinase 25 L - Diagnostic Findings Chest x-ray: report reviewed, image reviewed (Labs x-rays and medications are all reviewed.) Assessment and Plan Assessment: Assessment COPD exacerbation complicated by purulent tracheobronchitis, without solomon pneumonia Chronic hypoxemic respiratory failure History of hypertension History of rheumatoid arthritis Previous history of pneumonia Previous history of rectal bleeding Cancer of the vulva. History of UTI Colitis by history History of gout History of seasonal ALLERGIES Plan: Plan dated 07/22/2018 The patient's medications will be reviewed. We'll make sure that she is on a short acting beta agonist, a short acting muscarinic antagonist, a long-acting beta agonist, inhaled corticosteroid. In addition, she'll need some antibiotics and systemic corticosteroids. The patient seems to turn around relatively quickly. Typically by day 3 or 4, she's back to baseline. No additional recommendations are made. We'll continue to follow. Prognosis is guarded. White count was 12.1 hemoglobin and hematocrit and platelet count all normal. PT INR and PTT are normal. Sodium was 144 chlorides 108 CO2 26 and anion gap 10. BUN and creatinine were normal. Time with Patient: Greater than 30
[2018-07-22] MEDS: guaiFENesin 600 MG TABLET.ER PO PRN (15:24)
[2018-07-22] MEDS: FORMOTEROL FUMARATE 20 MCG/2 ML NEBU INHALATION SCH (20:34)
[2018-07-22] MEDS: BUDESONIDE 1 MG/2 ML NEBU INHALATION SCH (20:34)
[2018-07-22] MEDS: diphenhydrAMINE 50 MG CAP PO SCH (21:14)
[2018-07-22] MEDS: FAMOTIDINE 20 MG/2 ML VIAL IV SCH (21:14)
[2018-07-22] MEDS: MONTELUKAST 10 MG TAB PO SCH (21:14)
[2018-07-23] MEDS: IPRATROPIUM-ALBUTEROL 3 ML NEB INHALATION SCH ×6 (00:33→20:09)
[2018-07-23] MEDS: methylPREDNISolone SOD SUCCI 125 MG/2 ML VIAL IV SCH ×4 (01:00→18:02)
[2018-07-23] MEDS: HYDROcodone/APAP 10-325MG 1 EACH TAB PO PRN ×3 (04:05→21:31)
[2018-07-23] MEDS: SODIUM CHLORIDE 0.9% 1,000 ML IV SCH ×2 (04:57→12:12)
[2018-07-23] MEDS: FORMOTEROL FUMARATE 20 MCG/2 ML NEBU INHALATION SCH ×2 (08:46→20:09)
[2018-07-23] MEDS: BUDESONIDE 1 MG/2 ML NEBU INHALATION SCH ×2 (08:46→20:09)
[2018-07-23 09:25] LABS: Basophils % (A) 0 %; Eosinophils % (A) 0 %; HCT 34.6 % (34.0-46.0); Hypochromasia Moderate; Lymphocytes # (A) 0.6 k/uL (1.0-4.8); Lymphocytes % (A) 7 %; MCHC 31.7 g/dL (31.0-37.0); Macrocytosis Slight; Monocytes # (A) 0.1 k/uL (0-1.0); Monocytes % (A) 1 %; Neutrophils # (A) 8.3 k/uL (1.3-7.7); Neutrophils % (A) 91 %; Platelet Count 319 k/uL (150-450); RBC 3.43 m/uL (3.80-5.40); RDW 13.6 % (11.5-15.5); WBC 9.1 k/uL (3.8-10.6)
[2018-07-23 09:29] LABS: Anion Gap 5 mmol/L; Blood Urea Nitrogen 13 mg/dL (7-17); Calcium 8.7 mg/dL (8.4-10.2); Carbon Dioxide 24 mmol/L (22-30); Chloride 113 mmol/L (98-107); Glucose 163 mg/dL (74-99); Potassium 4.7 mmol/L (3.5-5.1); Sodium 142 mmol/L (137-145)
[2018-07-23] MEDS: AMPHETAMINE PO SCH (10:08)
[2018-07-23] MEDS: DEXTROAMPHETAMINE PO SCH (10:08)
[2018-07-23] MEDS: LISINOPRIL 20 MG TAB PO SCH (10:15)
[2018-07-23] MEDS: ENOXAPARIN 40 MG/0.4 ML SYRINGE SQ SCH (10:15)
[2018-07-23] MEDS: TETRAHYDROZOLINE 0.05% OPHTH DROPS 15 ML BTL BOTH EYES SCH ×4 (10:15→21:08)
[2018-07-23] MEDS: POLYETHYLENE GLYCOL 3350 17 GM POWD.PACK PO SCH (10:15)
[2018-07-23] MEDS: DOXYCYCLINE 100 MG CAP PO SCH ×2 (10:15→21:07)
[2018-07-23] MEDS: FAMOTIDINE 20 MG/2 ML VIAL IV SCH (10:15)
--- NOTE | 2018-07-23 11:19 | P.PN ---
Subjective Progress Note Date: 07/23/18 Principal diagnosis: Acute COPD exacerbation, acute by purulent tracheobronchitis with chronic hypoxemic respiratory failure Pulmonary consult dated 07/22/2018 This is a 63-year-old female with a known history of COPD/emphysema. The patient states for last 3-5 days she's been having increasing shortness of breath chest congestion cough yellow phlegm production chills chest tightness and overall just not feeling well. She tried using her home medication which included updrafts but unfortunately that did not seem to make any difference for her. Despite being on oxygen at home and using a number different inhalers and puffers, the patient got worse and decided to come into the emergency room where she was admitted. The patient sees Dr. Mijares as her primary. Her home medications from the pulmonary standpoint include Pulmicort solution, Singulair , DuoNeb's, Mucinex, and Perforomist. She has ALLERGIES to Remicade Novocain and Darvon. She has a previous heavy tobacco history but does not smoke currently. The patient does have frequent visits to the emergency room and multiple admissions to the hospital. She wishes in the hospital probably about a month ago or so. On 07/23/2018 patient seen in follow-up on medical surgical floor. She sitting up in bed, in no acute distress. A bit flushed, in her face, and chest area, which could be from IV steroids. Pulse ox on 3 L per nasal cannula is 96%, she is afebrile, hemodynamically stable. Her labs showed WBC of 9.1, hemoglobin is 11.0, electrolytes are relatively unremarkable with the exception of chloride which is 113. Her culture showed no growth at the 24-hour emperatriz. Lung sounds are still positive for high-pitched expiratory wheezes, she is covered with the pneumatic in the form of doxycycline, IV steroids, and nebulized bronchodilators , he is requesting her Lasix 40 mg daily. Objective - Vital Signs Vital signs: Vital Signs Temp 97.9 F 07/23/18 06:21 Pulse 94 07/23/18 09:08 Resp 20 07/23/18 08:45 BP 123/53 07/23/18 06:21 Pulse Ox 96 07/23/18 08:45 Intake & Output 07/22/18 07/23/18 07/23/18 18:59 06:59 18:59 Intake Total 400 Balance 400 Intake: Intake, IV Titration 400 Amount Sodium Chloride 0.9% 1, 400 000 ml @ 80 mls/hr IV . [id number] [facility] Rx#:[id number] Other: # Voids 3 1 - Exam No acute distress, oriented 3, nasal O2 in place. HEENT examination is grossly unremarkable. Mucous membranes are moist. No oral lesions. Neck supple. Full range of motion. No adenopathy thyromegaly or neck vein distention. Cardiovascular examination reveals regular rhythm rate. S1-S2 normal. No S3 or S4. No discernible murmur noted. Heart sounds are distant. Lungs reveal bilateral high-pitched wheezes on expiration. There is prolongation on forced maneuver. The patient's adventitious lung sounds are more prominent on forced maneuver. No crackles. Breath sounds equal bilaterally but diminished throughout. Abdomen soft bowel sounds are heard. No masses or tenderness. Extremities are intact. No cyanosis clubbing or edema. Skin is without rash or lesion. Neurologic examination is brief but nonfocal. - Labs CBC & Chem 7: 07/23/18 08:39 07/23/18 08:39 Labs: Abnormal Lab Results - Last 24 Hours (Table) 07/23/18 07/23/18 Range/Units 08:39 08:39 RBC 3.43 L (3.80-5.40) m/uL Hgb 11.0 L (11.4-16.0) gm/dL MCV 101.0 H (80.0-100.0) fL Neutrophils # 8.3 H (1.3-7.7) k/uL Lymphocytes # 0.6 L (1.0-4.8) k/uL Chloride 113 H (98-107) mmol/L Glucose 163 H (74-99) mg/dL Microbiology - Last 24 Hours (Table) 07/21/18 18:39 Blood Culture - Preliminary Blood No Growth after 24 hours Assessment and Plan Plan: Assessment: COPD exacerbation complicated by purulent tracheobronchitis, without solomon pneumonia Chronic hypoxemic respiratory failure History of hypertension History of rheumatoid arthritis Previous history of pneumonia Previous history of rectal bleeding Cancer of the vulva. History of UTI Colitis by history History of gout History of seasonal ALLERGIES Plan: Continue current medical treatment, will add once daily dose of oral Lasix. Continue nebulized bronchodilators, IV steroids and empiric antibiotics, he is improving, anticipate further improvement, and possible discharge home in next 24 hours I performed a history & physical examination of the patient and discussed their management with my nurse practitioner, Savanah Mart. I reviewed the nurse practitioner's note and agree with the documented findings and plan of care. Lung sounds are positive for high-pitched wheezes. The findings and the impression was discussed with the patient. I attest to the documentation by the nurse practitioner. Time with Patient: Less than 30
[2018-07-23] MEDS: MULTIVITAMINS, THERA 1 EACH TAB PO SCH (12:11)
--- NOTE | 2018-07-23 12:29 | P.PN ---
Subjective this is a pleasant 63 yo F with pmh of COPD rectal bleed, gout, cancer of the appendix. Present because of dyspnea which was getting progressively worse especially over the last 3 days associated with cough and yellowish phlegm. Patient denies fever no chest pain. She has chronic back pain for months. Patient was not is also taking nystatin however she denies any oral thrush and she states she uses it only as when necessary. Patient is not steroid dependent. She has oxygen at home 07/23/2018 Patient improved this little better as well as her chest pain and coughing with phlegm. Lasix was added by the pulmonary team and input is appreciated. Patient also complains from rash on her base symmetrical since admission and she has for a while. With some dryness and scaling. Failed supportive treatment will try topical steroids. Patient informed and she agrees Objective - Vital Signs Vital signs: Vital Signs Temp 97.9 F 07/23/18 06:21 Pulse 90 07/23/18 12:13 Resp 20 07/23/18 08:45 BP 123/53 07/23/18 06:21 Pulse Ox 96 07/23/18 08:45 Intake & Output 07/22/18 07/23/18 07/23/18 18:59 06:59 18:59 Intake Total 400 Balance 400 Intake: Intake, IV Titration 400 Amount Sodium Chloride 0.9% 1, 400 000 ml @ 80 mls/hr IV . [id number] [facility] Rx#:[id number] Other: # Voids 3 1 - Exam GENERAL: The patient is alert and oriented x3, not in any acute distress. Well developed, well nourished. HEENT: Pupils are round and equally reacting to light. EOMI. No scleral icterus. No conjunctival pallor. Normocephalic, atraumatic. No pharyngeal erythema. No thyromegaly. CARDIOVASCULAR: S1 and S2 present. No murmurs, rubs, or gallops. -PULMONARY: Chest is clear to auscultation, no crackles. Bilateral scattered wheezing ABDOMEN: Soft, nontender, nondistended, normoactive bowel sounds. No palpable organomegaly. MUSCULOSKELETAL: No joint swelling or deformity. EXTREMITIES: No cyanosis, clubbing, or pedal edema. NEUROLOGICAL: Gross neurological examination did not reveal any focal deficits. -SKIN: bilateral face erythema, bilateral and symmetrical across the nose bridge - Labs CBC & Chem 7: 09/25/18 08:39 07/23/18 08:39 Labs: Abnormal Lab Results - Last 24 Hours (Table) 07/23/18 07/23/18 Range/Units 08:39 08:39 RBC 3.43 L (3.80-5.40) m/uL Hgb 11.0 L (11.4-16.0) gm/dL MCV 101.0 H (80.0-100.0) fL Neutrophils # 8.3 H (1.3-7.7) k/uL Lymphocytes # 0.6 L (1.0-4.8) k/uL Chloride 113 H (98-107) mmol/L Glucose 163 H (74-99) mg/dL Microbiology - Last 24 Hours (Table) 07/21/18 18:39 Blood Culture - Preliminary Blood No Growth after 24 hours Assessment and Plan Assessment: Acute COPD exacerbation Bilateral malar rash Hypertension Chronic back pain Plan: This is a pleasant 63 years old female who presents with COPD exacerbation. Continue with steroids, breathing treatment, oxygenating, and antibiotic. Continue with same treatment. Continue symptomatic treatment. Resume home medication. Monitor vitals and lites. DVT and GI prophylaxis. Further recommendations based on the clinical course of the patient DVT prophylaxis: Subcutaneous lovenox GI prophylaxis: Pepcid PT/OT: Pending Prognosis is guarded
[2018-07-23] MEDS ORDERED: INFLUENZA VACCINE (6 MOS+) 60 MCG/0.5 ML SYRINGE IM ONE (15:55)
[2018-07-23] MEDS ORDERED: PNEUMOCOCCAL VACC-PNEUMOVAX 23 25 MCG/0.5 ML VIAL IM ONE (15:55)
[2018-07-23] MEDS: amLODIPine 5 MG TAB PO SCH (18:02)
[2018-07-23] MEDS: guaiFENesin 600 MG TABLET.ER PO PRN (18:02)
[2018-07-23] MEDS: CLOBETASOL PROP 0.05% CR 15GM TOPICAL SCH ×2 (18:41→21:07)
[2018-07-23] MEDS: MONTELUKAST 10 MG TAB PO SCH (21:08)
[2018-07-23] MEDS: FAMOTIDINE 20 MG TAB PO SCH (21:08)
[2018-07-24] MEDS: IPRATROPIUM-ALBUTEROL 3 ML NEB INHALATION SCH ×6 (00:26→19:58)
[2018-07-24] MEDS: SODIUM CHLORIDE 0.9% 1,000 ML IV SCH (00:43)
[2018-07-24] MEDS: methylPREDNISolone SOD SUCCI 125 MG/2 ML VIAL IV SCH ×5 (00:43→23:57)
[2018-07-24] MEDS: FORMOTEROL FUMARATE 20 MCG/2 ML NEBU INHALATION SCH ×2 (09:00→19:57)
[2018-07-24] MEDS: BUDESONIDE 1 MG/2 ML NEBU INHALATION SCH ×2 (09:00→19:57)
[2018-07-24] MEDS: DEXTROAMPHETAMINE PO SCH (09:15)
[2018-07-24] MEDS: AMPHETAMINE PO SCH (09:15)
[2018-07-24] MEDS: guaiFENesin 600 MG TABLET.ER PO PRN ×2 (09:21→21:13)
[2018-07-24] MEDS: ENOXAPARIN 40 MG/0.4 ML SYRINGE SQ SCH (09:21)
[2018-07-24] MEDS: HYDROcodone/APAP 10-325MG 1 EACH TAB PO PRN ×3 (09:21→23:54)
[2018-07-24] MEDS: DOXYCYCLINE 100 MG CAP PO SCH ×2 (09:22→21:13)
[2018-07-24] MEDS: TETRAHYDROZOLINE 0.05% OPHTH DROPS 15 ML BTL BOTH EYES SCH ×4 (09:22→21:01)
[2018-07-24] MEDS: MULTIVITAMINS, THERA 1 EACH TAB PO SCH (09:22)
[2018-07-24] MEDS: FUROSEMIDE 40 MG TAB PO SCH (09:22)
[2018-07-24] MEDS: LISINOPRIL 20 MG TAB PO SCH (09:22)
[2018-07-24] MEDS: POLYETHYLENE GLYCOL 3350 17 GM POWD.PACK PO SCH (09:22)
[2018-07-24] MEDS: CLOBETASOL PROP 0.05% CR 15GM TOPICAL SCH ×2 (09:22→21:00)
[2018-07-24] MEDS: amLODIPine 5 MG TAB PO SCH (09:23)
[2018-07-24] MEDS: FAMOTIDINE 20 MG TAB PO SCH ×2 (09:23→21:00)
--- NOTE | 2018-07-24 11:35 | P.PN ---
Subjective Progress Note Date: 07/24/18 Principal diagnosis: Acute COPD exacerbation, acute by purulent tracheobronchitis with chronic hypoxemic respiratory failure Pulmonary consult dated 07/22/2018 This is a 63-year-old female with a known history of COPD/emphysema. The patient states for last 3-5 days she's been having increasing shortness of breath chest congestion cough yellow phlegm production chills chest tightness and overall just not feeling well. She tried using her home medication which included updrafts but unfortunately that did not seem to make any difference for her. Despite being on oxygen at home and using a number different inhalers and puffers, the patient got worse and decided to come into the emergency room where she was admitted. The patient sees Dr. Mijares as her primary. Her home medications from the pulmonary standpoint include Pulmicort solution, Singulair , DuoNeb's, Mucinex, and Perforomist. She has ALLERGIES to Remicade Novocain and Darvon. She has a previous heavy tobacco history but does not smoke currently. The patient does have frequent visits to the emergency room and multiple admissions to the hospital. She wishes in the hospital probably about a month ago or so. On 07/23/2018 patient seen in follow-up on medical surgical floor. She sitting up in bed, in no acute distress. A bit flushed, in her face, and chest area, which could be from IV steroids. Pulse ox on 3 L per nasal cannula is 96%, she is afebrile, hemodynamically stable. Her labs showed WBC of 9.1, hemoglobin is 11.0, electrolytes are relatively unremarkable with the exception of chloride which is 113. Her culture showed no growth at the 24-hour emperatriz. Lung sounds are still positive for high-pitched expiratory wheezes, she is covered with the pneumatic in the form of doxycycline, IV steroids, and nebulized bronchodilators , he is requesting her Lasix 40 mg daily. On 07/24/2018 patient seen in follow-up. In no acute distress, still remains bronchospastic and dyspneic with exertion. Currently on 5 L per nasal cannula, and her pulse ox is 96%, tachycardic at times, heart rate up to 115 BPM. Afebrile. Blood culture was negative. Patient remains on IV steroids, doxycycline, nebulized bronchodilators, restarted patient's oral Lasix. Objective - Vital Signs Vital signs: Vital Signs Temp 97.2 F L 07/24/18 06:15 Pulse 100 07/24/18 09:25 Resp 20 07/24/18 08:34 BP 141/96 07/24/18 08:34 Pulse Ox 96 07/24/18 08:34 Intake & Output 07/23/18 07/24/18 07/24/18 18:59 06:59 18:59 Intake Total 400 Balance 400 Intake: Intake, IV Titration 400 Amount Sodium Chloride 0.9% 1, 400 000 ml @ 80 mls/hr IV . [id number] [facility] Rx#:[id number] Other: Voiding Method Toilet Bedside Commode # Voids 1 2 - Exam No acute distress, oriented 3, nasal O2 in place. HEENT examination is grossly unremarkable. Mucous membranes are moist. No oral lesions. Neck supple. Full range of motion. No adenopathy thyromegaly or neck vein distention. Cardiovascular examination reveals regular rhythm rate. S1-S2 normal. No S3 or S4. No discernible murmur noted. Heart sounds are distant. Lungs reveal bilateral high-pitched wheezes on expiration. There is prolongation on forced maneuver. The patient's adventitious lung sounds are more prominent on forced maneuver. No crackles. Breath sounds equal bilaterally but diminished throughout. Abdomen soft bowel sounds are heard. No masses or tenderness. Extremities are intact. No cyanosis clubbing or edema. Skin is without rash or lesion. Neurologic examination is brief but nonfocal. - Labs CBC & Chem 7: 07/23/18 08:39 07/23/18 08:39 Labs: Microbiology - Last 24 Hours (Table) 07/21/18 18:39 Blood Culture - Preliminary Blood No Growth after 48 hours Assessment and Plan Plan: Assessment: COPD exacerbation complicated by purulent tracheobronchitis, without solomon pneumonia Chronic hypoxemic respiratory failure History of hypertension History of rheumatoid arthritis Previous history of pneumonia Previous history of rectal bleeding Cancer of the vulva. History of UTI Colitis by history History of gout History of seasonal ALLERGIES Plan: Continue current medical treatment, continue IV steroids, antibiotics, nebulized bronchodilators. still dyspneic and bronchospastic, slow improvement. Increase activity as tolerated. Possible discharge home in the next 24 hours. I performed a history & physical examination of the patient and discussed their management with my nurse practitioner, Savanah Mart. I reviewed the nurse practitioner's note and agree with the documented findings and plan of care. Lung sounds are positive for high-pitched wheezes. The findings and the impression was discussed with the patient. I attest to the documentation by the nurse practitioner. Time with Patient: Less than 30
--- NOTE | 2018-07-24 12:19 | P.PN ---
Subjective this is a pleasant 63 yo F with pmh of COPD rectal bleed, gout, cancer of the appendix. Present because of dyspnea which was getting progressively worse especially over the last 3 days associated with cough and yellowish phlegm. Patient denies fever no chest pain. She has chronic back pain for months. Patient was not is also taking nystatin however she denies any oral thrush and she states she uses it only as when necessary. Patient is not steroid dependent. She has oxygen at home 07/23/2018 Patient improved this little better as well as her chest pain and coughing with phlegm. Lasix was added by the pulmonary team and input is appreciated. Patient also complains from rash on her base symmetrical since admission and she has for a while. With some dryness and scaling. Failed supportive treatment will try topical steroids. Patient informed and she agrees 07/23/2018 Patient still significantly dyspneic. And she still on 5 L oxygen via nasal cannula. She can't yellow phlegm about twice today after that she felt better regarding her breathing. She has mild chest pain with coughing. Patient today her face rash was looking better with steroid ointment. Pulmonary input is appreciated Objective - Vital Signs Vital signs: Vital Signs Temp 97.2 F L 07/24/18 06:15 Pulse 100 07/24/18 09:25 Resp 20 07/24/18 08:34 BP 141/96 07/24/18 08:34 Pulse Ox 96 07/24/18 08:34 Intake & Output 07/23/18 07/24/18 07/24/18 18:59 06:59 18:59 Intake Total 400 Balance 400 Intake: Intake, IV Titration 400 Amount Sodium Chloride 0.9% 1, 400 000 ml @ 80 mls/hr IV . [id number] [facility] Rx#:[id number] Other: Voiding Method Toilet Bedside Commode # Voids 1 2 - Exam GENERAL: The patient is alert and oriented x3, not in any acute distress. Well developed, well nourished. HEENT: Pupils are round and equally reacting to light. EOMI. No scleral icterus. No conjunctival pallor. Normocephalic, atraumatic. No pharyngeal erythema. No thyromegaly. CARDIOVASCULAR: S1 and S2 present. No murmurs, rubs, or gallops. -PULMONARY: Chest is clear to auscultation, no crackles. Bilateral scattered wheezing ABDOMEN: Soft, nontender, nondistended, normoactive bowel sounds. No palpable organomegaly. MUSCULOSKELETAL: No joint swelling or deformity. EXTREMITIES: No cyanosis, clubbing, or pedal edema. NEUROLOGICAL: Gross neurological examination did not reveal any focal deficits. -SKIN: bilateral face erythema, bilateral and symmetrical across the nose bridge - Labs CBC & Chem 7: 07/23/18 08:39 07/23/18 08:39 Labs: Microbiology - Last 24 Hours (Table) 07/21/18 18:39 Blood Culture - Preliminary Blood No Growth after 48 hours Assessment and Plan Assessment: Acute COPD exacerbation Bilateral malar rash Hypertension Chronic back pain Plan: This is a pleasant 63 years old female who presents with COPD exacerbation. Continue with steroids, breathing treatment, oxygenating, and antibiotic. Continue with same treatment. Continue symptomatic treatment. Resume home medication. Monitor vitals and lites. DVT and GI prophylaxis. Further recommendations based on the clinical course of the patient DVT prophylaxis: Subcutaneous lovenox GI prophylaxis: Pepcid PT/OT: Pending Prognosis is guarded
[2018-07-24] MEDS: diphenhydrAMINE 50 MG CAP PO SCH (21:13)
[2018-07-24] MEDS: MONTELUKAST 10 MG TAB PO SCH (21:13)
[2018-07-25] MEDS: IPRATROPIUM-ALBUTEROL 3 ML NEB INHALATION SCH ×7 (00:21→23:26)
[2018-07-25] MEDS: SODIUM CHLORIDE 0.65% NASAL SPRAY 44 ML BTL NASAL PRN ×2 (01:18→07:26)
[2018-07-25] MEDS: methylPREDNISolone SOD SUCCI 125 MG/2 ML VIAL IV SCH ×4 (05:15→23:27)
[2018-07-25] MEDS: AMPHETAMINE PO SCH (07:15)
[2018-07-25] MEDS: DEXTROAMPHETAMINE PO SCH (07:15)
[2018-07-25] MEDS: CLOBETASOL PROP 0.05% CR 15GM TOPICAL SCH (07:24)
[2018-07-25] MEDS: ENOXAPARIN 40 MG/0.4 ML SYRINGE SQ SCH (07:24)
[2018-07-25] MEDS: HYDROcodone/APAP 10-325MG 1 EACH TAB PO PRN ×3 (07:25→23:26)
[2018-07-25] MEDS: amLODIPine 5 MG TAB PO SCH (07:25)
[2018-07-25] MEDS: POLYETHYLENE GLYCOL 3350 17 GM POWD.PACK PO SCH (07:25)
[2018-07-25] MEDS: DOXYCYCLINE 100 MG CAP PO SCH ×2 (07:25→22:22)
[2018-07-25] MEDS: LISINOPRIL 20 MG TAB PO SCH (07:25)
[2018-07-25] MEDS: FUROSEMIDE 40 MG TAB PO SCH (07:26)
[2018-07-25] MEDS: MULTIVITAMINS, THERA 1 EACH TAB PO SCH (07:26)
[2018-07-25] MEDS: FAMOTIDINE 20 MG TAB PO SCH ×2 (07:26→22:22)
[2018-07-25] MEDS: TETRAHYDROZOLINE 0.05% OPHTH DROPS 15 ML BTL BOTH EYES SCH ×4 (07:26→22:34)
[2018-07-25] MEDS: BUDESONIDE 1 MG/2 ML NEBU INHALATION SCH ×2 (07:29→19:54)
[2018-07-25] MEDS: FORMOTEROL FUMARATE 20 MCG/2 ML NEBU INHALATION SCH ×2 (07:29→19:54)
[2018-07-25 08:29] LABS: Anion Gap 4 mmol/L; Blood Urea Nitrogen 21 mg/dL (7-17); Calcium 8.7 mg/dL (8.4-10.2); Carbon Dioxide 30 mmol/L (22-30); Chloride 109 mmol/L (98-107); Glucose 124 mg/dL (74-99); Potassium 4.2 mmol/L (3.5-5.1); Sodium 143 mmol/L (137-145)
--- NOTE | 2018-07-25 10:51 | P.PN ---
Subjective Progress Note Date: 07/25/18 Principal diagnosis: Acute COPD exacerbation, acute by purulent tracheobronchitis with chronic hypoxemic respiratory failure Pulmonary consult dated 07/22/2018 This is a 63-year-old female with a known history of COPD/emphysema. The patient states for last 3-5 days she's been having increasing shortness of breath chest congestion cough yellow phlegm production chills chest tightness and overall just not feeling well. She tried using her home medication which included updrafts but unfortunately that did not seem to make any difference for her. Despite being on oxygen at home and using a number different inhalers and puffers, the patient got worse and decided to come into the emergency room where she was admitted. The patient sees Dr. Mijares as her primary. Her home medications from the pulmonary standpoint include Pulmicort solution, Singulair , DuoNeb's, Mucinex, and Perforomist. She has ALLERGIES to Remicade Novocain and Darvon. She has a previous heavy tobacco history but does not smoke currently. The patient does have frequent visits to the emergency room and multiple admissions to the hospital. She wishes in the hospital probably about a month ago or so. On 07/23/2018 patient seen in follow-up on medical surgical floor. She sitting up in bed, in no acute distress. A bit flushed, in her face, and chest area, which could be from IV steroids. Pulse ox on 3 L per nasal cannula is 96%, she is afebrile, hemodynamically stable. Her labs showed WBC of 9.1, hemoglobin is 11.0, electrolytes are relatively unremarkable with the exception of chloride which is 113. Her culture showed no growth at the 24-hour emperatriz. Lung sounds are still positive for high-pitched expiratory wheezes, she is covered with the pneumatic in the form of doxycycline, IV steroids, and nebulized bronchodilators , he is requesting her Lasix 40 mg daily. On 07/24/2018 patient seen in follow-up. In no acute distress, still remains bronchospastic and dyspneic with exertion. Currently on 5 L per nasal cannula, and her pulse ox is 96%, tachycardic at times, heart rate up to 115 BPM. Afebrile. Blood culture was negative. Patient remains on IV steroids, doxycycline, nebulized bronchodilators, restarted patient's oral Lasix. 07/25/2018 patient seen in follow-up on medical surgical floor. Still bronchospastic, and dyspneic with exertion. His dry, noncongested, although patient states she at times will bring up some yellow sputum. Room air pulse ox 91%, and patient is wearing her oxygen intermittently, vital signs are stable , she is afebrile. Cultures are negative after 72 hours. Continue current medical treatment, on IV steroids, antibiotics, neb last bronchodilators. Objective - Vital Signs Vital signs: Vital Signs Temp 98.5 F 07/25/18 07:00 Pulse 88 07/25/18 07:52 Resp 20 07/25/18 07:00 BP 132/75 07/25/18 07:00 Pulse Ox 91 L 07/25/18 07:00 Intake & Output 07/24/18 07/25/18 07/25/18 18:59 06:59 18:59 Intake Total 800 1200 600 Balance 800 1200 600 Weight 71.2 kg 71.2 kg 71.2 kg Intake: Oral 800 1200 600 Other: Voiding Method Toilet Toilet Toilet Bedside Commode Bedside Commode Bedside Commode # Voids 4 2 - Exam No acute distress, oriented 3, nasal O2 in place. HEENT examination is grossly unremarkable. Mucous membranes are moist. No oral lesions. Neck supple. Full range of motion. No adenopathy thyromegaly or neck vein distention. Cardiovascular examination reveals regular rhythm rate. S1-S2 normal. No S3 or S4. No discernible murmur noted. Heart sounds are distant. Lungs reveal bilateral high-pitched wheezes on expiration. There is prolongation on forced maneuver. The patient's adventitious lung sounds are more prominent on forced maneuver. No crackles. Breath sounds equal bilaterally but diminished throughout. Abdomen soft bowel sounds are heard. No masses or tenderness. Extremities are intact. No cyanosis clubbing or edema. Skin is without rash or lesion. Neurologic examination is brief but nonfocal. - Labs CBC & Chem 7: 07/23/18 08:39 07/25/18 07:37 Labs: Abnormal Lab Results - Last 24 Hours (Table) 07/25/18 Range/Units 07:37 Chloride 109 H (98-107) mmol/L BUN 21 H (7-17) mg/dL Glucose 124 H (74-99) mg/dL Microbiology - Last 24 Hours (Table) 07/21/18 18:39 Blood Culture - Preliminary Blood No Growth after 72 hours Assessment and Plan Plan: Assessment: COPD exacerbation complicated by purulent tracheobronchitis, without solomon pneumonia Chronic hypoxemic respiratory failure History of hypertension History of rheumatoid arthritis Previous history of pneumonia Previous history of rectal bleeding Cancer of the vulva. History of UTI Colitis by history History of gout History of seasonal ALLERGIES Plan: Continue with current medical treatment, continue current of IV steroids, doxycycline nebulized bronchodilators, Pulmicort and Perforomist. No need for bronchoscopy right now, patient does not seem to be overly congested, her cough is dry, not significantly congested. We'll continue to follow, anticipate further improvement, patient may be considered for discharge in the next 24 hours, she is very near her baseline. I performed a history & physical examination of the patient and discussed their management with my nurse practitioner, Savanah Mart. I reviewed the nurse practitioner's note and agree with the documented findings and plan of care. Lung sounds are positive for high-pitched wheezes. The findings and the impression was discussed with the patient. I attest to the documentation by the nurse practitioner.
[2018-07-25] MEDS: guaiFENesin 600 MG TABLET.ER PO PRN ×2 (11:26→23:26)
--- NOTE | 2018-07-25 12:29 | P.PN ---
Subjective this is a pleasant 63 yo F with pmh of COPD rectal bleed, gout, cancer of the appendix. Present because of dyspnea which was getting progressively worse especially over the last 3 days associated with cough and yellowish phlegm. Patient denies fever no chest pain. She has chronic back pain for months. Patient was not is also taking nystatin however she denies any oral thrush and she states she uses it only as when necessary. Patient is not steroid dependent. She has oxygen at home 07/23/2018 Patient improved this little better as well as her chest pain and coughing with phlegm. Lasix was added by the pulmonary team and input is appreciated. Patient also complains from rash on her base symmetrical since admission and she has for a while. With some dryness and scaling. Failed supportive treatment will try topical steroids. Patient informed and she agrees 07/24/2018 Patient still significantly dyspneic. And she still on 5 L oxygen via nasal cannula. She can't yellow phlegm about twice today after that she felt better regarding her breathing. She has mild chest pain with coughing. Patient today her face rash was looking better with steroid ointment. Pulmonary input is appreciated 07/25/2018 Patient remains dyspneic, however she needed today less oxygen via nasal cannula from 5 L yesterday to 3 L. She is improving slowly and gradually. Pulmonary input and follow-up is appreciated. Patient does not need bronchoscopy with broncoscopy with BAL, she looks more dry than congested. Continue same treatment with IV steroids and antibiotics, breathing treatment with oxygen. Discharge planning 24-48 hours Objective - Vital Signs Vital signs: Vital Signs Temp 98.5 F 07/25/18 07:00 Pulse 88 07/25/18 07:52 Resp 20 07/25/18 07:00 BP 132/75 07/25/18 07:00 Pulse Ox 91 L 07/25/18 07:00 Intake & Output 07/24/18 07/25/18 07/25/18 18:59 06:59 18:59 Intake Total 800 1200 600 Balance 800 1200 600 Weight 71.2 kg 71.2 kg 71.2 kg Intake: Oral 800 1200 600 Other: Voiding Method Toilet Toilet Toilet Bedside Commode Bedside Commode Bedside Commode # Voids 4 2 - Exam GENERAL: The patient is alert and oriented x3, not in any acute distress. Well developed, well nourished. HEENT: Pupils are round and equally reacting to light. EOMI. No scleral icterus. No conjunctival pallor. Normocephalic, atraumatic. No pharyngeal erythema. No thyromegaly. CARDIOVASCULAR: S1 and S2 present. No murmurs, rubs, or gallops. -PULMONARY: Chest is clear to auscultation, no crackles. Bilateral scattered wheezing ABDOMEN: Soft, nontender, nondistended, normoactive bowel sounds. No palpable organomegaly. MUSCULOSKELETAL: No joint swelling or deformity. EXTREMITIES: No cyanosis, clubbing, or pedal edema. NEUROLOGICAL: Gross neurological examination did not reveal any focal deficits. -SKIN: bilateral face erythema, bilateral and symmetrical across the nose bridge - Labs CBC & Chem 7: 07/23/18 08:39 07/25/18 07:37 Labs: Abnormal Lab Results - Last 24 Hours (Table) 07/25/18 Range/Units 07:37 Chloride 109 H (98-107) mmol/L BUN 21 H (7-17) mg/dL Glucose 124 H (74-99) mg/dL Microbiology - Last 24 Hours (Table) 07/21/18 18:39 Blood Culture - Preliminary Blood No Growth after 72 hours Assessment and Plan Assessment: Acute COPD exacerbation Bilateral malar rash Hypertension Chronic back pain Plan: This is a pleasant 63 years old female who presents with COPD exacerbation. Continue with steroids, breathing treatment, oxygenating, and antibiotic. Continue with same treatment. Continue symptomatic treatment. Resume home medication. Monitor vitals and lites. DVT and GI prophylaxis. Further recommendations based on the clinical course of the patient DVT prophylaxis: Subcutaneous lovenox GI prophylaxis: Pepcid PT/OT: Pending Prognosis is guarded
[2018-07-25] MEDS: MONTELUKAST 10 MG TAB PO SCH (22:22)
[2018-07-25] MEDS: diphenhydrAMINE 50 MG CAP PO SCH (22:22)
[2018-07-25 22:41] LABS: Basophils % (A) 0 %; Eosinophils # (A) 0.1 k/uL (0-0.7); Eosinophils % (A) 2 %; HCT 35.2 % (34.0-46.0); HGB 10.8 gm/dL (11.4-16.0); Hypochromasia Marked; Lymphocytes # (A) 0.4 k/uL (1.0-4.8); Lymphocytes % (A) 8 %; MCH 31.3 pg (25.0-35.0); MCHC 30.8 g/dL (31.0-37.0); MCV 101.8 fL (80.0-100.0); Macrocytosis Slight; Mean Platelet Volume 8.7; Monocytes # (A) 0.1 k/uL (0-1.0); Monocytes % (A) 2 %; Neutrophils # (A) 4.4 k/uL (1.3-7.7); Neutrophils % (A) 87 %; Platelet Count 293 k/uL (150-450); RBC 3.46 m/uL (3.80-5.40); RDW 13.5 % (11.5-15.5)
[2018-07-26] MEDS: IPRATROPIUM-ALBUTEROL 3 ML NEB INHALATION SCH ×5 (03:26→20:31)
[2018-07-26] MEDS: methylPREDNISolone SOD SUCCI 125 MG/2 ML VIAL IV SCH ×3 (05:18→17:42)
[2018-07-26] MEDS: BUDESONIDE 1 MG/2 ML NEBU INHALATION SCH ×2 (07:02→20:31)
[2018-07-26] MEDS: FORMOTEROL FUMARATE 20 MCG/2 ML NEBU INHALATION SCH ×2 (07:02→20:31)
[2018-07-26] MEDS: DOXYCYCLINE 100 MG CAP PO SCH ×2 (09:08→22:22)
[2018-07-26] MEDS: FAMOTIDINE 20 MG TAB PO SCH ×2 (09:09→20:54)
[2018-07-26] MEDS: FUROSEMIDE 40 MG TAB PO SCH (09:09)
[2018-07-26] MEDS: amLODIPine 5 MG TAB PO SCH (09:09)
[2018-07-26] MEDS: ENOXAPARIN 40 MG/0.4 ML SYRINGE SQ SCH (09:09)
[2018-07-26] MEDS: DEXTROAMPHETAMINE PO SCH (09:09)
[2018-07-26] MEDS: AMPHETAMINE PO SCH (09:09)
[2018-07-26] MEDS: TETRAHYDROZOLINE 0.05% OPHTH DROPS 15 ML BTL BOTH EYES SCH ×4 (09:10→20:55)
[2018-07-26] MEDS: LISINOPRIL 20 MG TAB PO SCH (09:10)
[2018-07-26] MEDS: POLYETHYLENE GLYCOL 3350 17 GM POWD.PACK PO SCH (09:10)
[2018-07-26] MEDS: HYDROcodone/APAP 10-325MG 1 EACH TAB PO PRN ×2 (09:13→17:25)
--- NOTE | 2018-07-26 12:24 | P.PN ---
Subjective Progress Note Date: 07/26/18 Principal diagnosis: Acute COPD exacerbation, acute by purulent tracheobronchitis with chronic hypoxemic respiratory failure Pulmonary consult dated 07/22/2018 This is a 63-year-old female with a known history of COPD/emphysema. The patient states for last 3-5 days she's been having increasing shortness of breath chest congestion cough yellow phlegm production chills chest tightness and overall just not feeling well. She tried using her home medication which included updrafts but unfortunately that did not seem to make any difference for her. Despite being on oxygen at home and using a number different inhalers and puffers, the patient got worse and decided to come into the emergency room where she was admitted. The patient sees Dr. Mijares as her primary. Her home medications from the pulmonary standpoint include Pulmicort solution, Singulair , DuoNeb's, Mucinex, and Perforomist. She has ALLERGIES to Remicade Novocain and Darvon. She has a previous heavy tobacco history but does not smoke currently. The patient does have frequent visits to the emergency room and multiple admissions to the hospital. She wishes in the hospital probably about a month ago or so. On 07/23/2018 patient seen in follow-up on medical surgical floor. She sitting up in bed, in no acute distress. A bit flushed, in her face, and chest area, which could be from IV steroids. Pulse ox on 3 L per nasal cannula is 96%, she is afebrile, hemodynamically stable. Her labs showed WBC of 9.1, hemoglobin is 11.0, electrolytes are relatively unremarkable with the exception of chloride which is 113. Her culture showed no growth at the 24-hour emperatriz. Lung sounds are still positive for high-pitched expiratory wheezes, she is covered with the pneumatic in the form of doxycycline, IV steroids, and nebulized bronchodilators , he is requesting her Lasix 40 mg daily. On 07/24/2018 patient seen in follow-up. In no acute distress, still remains bronchospastic and dyspneic with exertion. Currently on 5 L per nasal cannula, and her pulse ox is 96%, tachycardic at times, heart rate up to 115 BPM. Afebrile. Blood culture was negative. Patient remains on IV steroids, doxycycline, nebulized bronchodilators, restarted patient's oral Lasix. 07/25/2018 patient seen in follow-up on medical surgical floor. Still bronchospastic, and dyspneic with exertion. His dry, noncongested, although patient states she at times will bring up some yellow sputum. Room air pulse ox 91%, and patient is wearing her oxygen intermittently, vital signs are stable , she is afebrile. Cultures are negative after 72 hours. Continue current medical treatment, on IV steroids, antibiotics, neb last bronchodilators. On 07/18/2018 patient seen in follow-up on medical surgical floor. Sounds are positive for diffuse wheezes, but no significant congestion. Continues on 3 L per nasal cannula, her pulse ox is 100%, afebrile, vital signs are stable, but culture showed no growth. No acute issues overnight. Patient is near her baseline, from pulmonary perspective patient is stable for discharge home today. Objective - Vital Signs Vital signs: Vital Signs Temp 98.1 F 07/26/18 06:04 Pulse 82 07/26/18 11:02 Resp 18 07/26/18 06:04 BP 134/72 07/26/18 06:04 Pulse Ox 100 07/26/18 06:04 Intake & Output 07/25/18 07/26/18 07/26/18 18:59 06:59 18:59 Intake Total 1400 1000 Balance 1400 1000 Weight 71.2 kg 71.2 kg Intake: Oral 1400 1000 Other: Voiding Method Toilet Toilet Bedside Commode Bedside Commode # Voids 4 1 - Exam No acute distress, oriented 3, nasal O2 in place. HEENT examination is grossly unremarkable. Mucous membranes are moist. No oral lesions. Neck supple. Full range of motion. No adenopathy thyromegaly or neck vein distention. Cardiovascular examination reveals regular rhythm rate. S1-S2 normal. No S3 or S4. No discernible murmur noted. Heart sounds are distant. Lungs reveal bilateral high-pitched wheezes on expiration. There is prolongation on forced maneuver. The patient's adventitious lung sounds are more prominent on forced maneuver. No crackles. Breath sounds equal bilaterally but diminished throughout. Abdomen soft bowel sounds are heard. No masses or tenderness. Extremities are intact. No cyanosis clubbing or edema. Skin is without rash or lesion. Neurologic examination is brief but nonfocal. - Labs CBC & Chem 7: 07/25/18 07:37 07/25/18 07:37 Labs: Abnormal Lab Results - Last 24 Hours (Table) 07/25/18 Range/Units 07:37 RBC 3.46 L (3.80-5.40) m/uL Hgb 10.8 L (11.4-16.0) gm/dL MCV 101.8 H (80.0-100.0) fL MCHC 30.8 L (31.0-37.0) g/dL Lymphocytes # 0.4 L (1.0-4.8) k/uL Microbiology - Last 24 Hours (Table) 07/21/18 18:39 Blood Culture - Preliminary Blood No Growth after 96 hours Assessment and Plan Plan: Assessment: COPD exacerbation complicated by purulent tracheobronchitis, without solomon pneumonia Chronic hypoxemic respiratory failure History of hypertension History of rheumatoid arthritis Previous history of pneumonia Previous history of rectal bleeding Cancer of the vulva. History of UTI Colitis by history History of gout History of seasonal ALLERGIES Plan: Is doing well, no acute issues overnight, still sounds bronchospastic, she is near her baseline. Not significantly congested, her cough is dry, she is very near her baseline. Tolerating ambulation. Patient is cleared for discharge home from pulmonary perspective, follow up with Dr. Goodman in the office in one week I performed a history & physical examination of the patient and discussed their management with my nurse practitioner, Savanah Mart. I reviewed the nurse practitioner's note and agree with the documented findings and plan of care. Lung sounds are positive for high-pitched wheezes. The findings and the impression was discussed with the patient. I attest to the documentation by the nurse practitioner. Time with Patient: Less than 30
[2018-07-26] MEDS: MULTIVITAMINS, THERA 1 EACH TAB PO SCH (12:46)
--- NOTE | 2018-07-26 18:00 | P.PN ---
Subjective this is a pleasant 63 yo F with pmh of COPD rectal bleed, gout, cancer of the appendix. Present because of dyspnea which was getting progressively worse especially over the last 3 days associated with cough and yellowish phlegm. Patient denies fever no chest pain. She has chronic back pain for months. Patient was not is also taking nystatin however she denies any oral thrush and she states she uses it only as when necessary. Patient is not steroid dependent. She has oxygen at home 07/23/2018 Patient improved this little better as well as her chest pain and coughing with phlegm. Lasix was added by the pulmonary team and input is appreciated. Patient also complains from rash on her base symmetrical since admission and she has for a while. With some dryness and scaling. Failed supportive treatment will try topical steroids. Patient informed and she agrees 07/24/2018 Patient still significantly dyspneic. And she still on 5 L oxygen via nasal cannula. She can't yellow phlegm about twice today after that she felt better regarding her breathing. She has mild chest pain with coughing. Patient today her face rash was looking better with steroid ointment. Pulmonary input is appreciated 07/25/2018 Patient remains dyspneic, however she needed today less oxygen via nasal cannula from 5 L yesterday to 3 L. She is improving slowly and gradually. Pulmonary input and follow-up is appreciated. Patient does not need bronchoscopy with broncoscopy with BAL, she looks more dry than congested. Continue same treatment with IV steroids and antibiotics, breathing treatment with oxygen. Discharge planning 24-48 hours 07/26/2018 Patient showed interval improvement although she still limited dyspneic. Her oxygen requirement is decreased to 3 L/m oxygen via NC. She still have some scattered wheezing and decrease air entry. She's been evaluated by pulmonary team and their input is appreciated, they think patient could be discharged however patient didn't feel ready and she felt suddenly treatment. Discharge planning 24-48 hours Objective - Vital Signs Vital signs: Vital Signs Temp 98.0 F 07/26/18 15:00 Pulse 82 07/26/18 17:06 Resp 20 07/26/18 15:00 BP 126/87 07/26/18 15:00 Pulse Ox 95 07/26/18 15:00 Intake & Output 07/25/18 07/26/18 07/26/18 18:59 06:59 18:59 Intake Total 1400 1000 Balance 1400 1000 Weight 71.2 kg 71.2 kg Intake: Oral 1400 1000 Other: Voiding Method Toilet Toilet Bedside Commode Bedside Commode # Voids 4 1 4 - Exam GENERAL: The patient is alert and oriented x3, not in any acute distress. Well developed, well nourished. HEENT: Pupils are round and equally reacting to light. EOMI. No scleral icterus. No conjunctival pallor. Normocephalic, atraumatic. No pharyngeal erythema. No thyromegaly. CARDIOVASCULAR: S1 and S2 present. No murmurs, rubs, or gallops. -PULMONARY: Chest is clear to auscultation, no crackles. Bilateral scattered wheezing ABDOMEN: Soft, nontender, nondistended, normoactive bowel sounds. No palpable organomegaly. MUSCULOSKELETAL: No joint swelling or deformity. EXTREMITIES: No cyanosis, clubbing, or pedal edema. NEUROLOGICAL: Gross neurological examination did not reveal any focal deficits. -SKIN: bilateral face erythema, bilateral and symmetrical across the nose bridge - Labs CBC & Chem 7: 07/25/18 07:37 07/25/18 07:37 Labs: Abnormal Lab Results - Last 24 Hours (Table) 07/25/18 Range/Units 07:37 RBC 3.46 L (3.80-5.40) m/uL Hgb 10.8 L (11.4-16.0) gm/dL MCV 101.8 H (80.0-100.0) fL MCHC 30.8 L (31.0-37.0) g/dL Lymphocytes # 0.4 L (1.0-4.8) k/uL Microbiology - Last 24 Hours (Table) 07/21/18 18:39 Blood Culture - Preliminary Blood No Growth after 96 hours Assessment and Plan Assessment: Acute COPD exacerbation Bilateral malar rash Hypertension Chronic back pain Plan: This is a pleasant 63 years old female who presents with COPD exacerbation. Continue with steroids, breathing treatment, oxygenating, and antibiotic. Continue with same treatment. Continue symptomatic treatment. Resume home medication. Monitor vitals and lites. DVT and GI prophylaxis. Further recommendations based on the clinical course of the patient DVT prophylaxis: Subcutaneous lovenox GI prophylaxis: Pepcid PT/OT: Pending Prognosis is guarded
[2018-07-26] MEDS: guaiFENesin 600 MG TABLET.ER PO PRN (18:27)
[2018-07-26] MEDS: BENZOCAINE/MENTHOL LOZENG 1 EACH LOZENGE MUCOUS MEM PRN (20:53)
[2018-07-26] MEDS: diphenhydrAMINE 50 MG CAP PO SCH (20:54)
[2018-07-26] MEDS: MONTELUKAST 10 MG TAB PO SCH (20:54)
[2018-07-27] MEDS: IPRATROPIUM-ALBUTEROL 3 ML NEB INHALATION SCH ×4 (00:23→11:41)
[2018-07-27] MEDS: methylPREDNISolone SOD SUCCI 125 MG/2 ML VIAL IV SCH ×3 (00:45→11:01)
[2018-07-27] MEDS: HYDROcodone/APAP 10-325MG 1 EACH TAB PO PRN ×2 (01:20→08:33)
[2018-07-27] MEDS: BENZOCAINE/MENTHOL LOZENG 1 EACH LOZENGE MUCOUS MEM PRN (05:48)
[2018-07-27 07:31] LABS: Glucose,Whole Blood 121 mg/dL (75-99)
[2018-07-27] MEDS: FAMOTIDINE 20 MG TAB PO SCH (08:23)
[2018-07-27] MEDS: DOXYCYCLINE 100 MG CAP PO SCH (08:23)
[2018-07-27] MEDS: amLODIPine 5 MG TAB PO SCH (08:23)
[2018-07-27] MEDS: ENOXAPARIN 40 MG/0.4 ML SYRINGE SQ SCH (08:23)
[2018-07-27] MEDS: FUROSEMIDE 40 MG TAB PO SCH (08:23)
[2018-07-27] MEDS: MULTIVITAMINS, THERA 1 EACH TAB PO SCH (08:23)
[2018-07-27] MEDS: LISINOPRIL 20 MG TAB PO SCH (08:23)
[2018-07-27] MEDS: POLYETHYLENE GLYCOL 3350 17 GM POWD.PACK PO SCH (08:23)
[2018-07-27] MEDS: TETRAHYDROZOLINE 0.05% OPHTH DROPS 15 ML BTL BOTH EYES SCH ×2 (08:24→11:03)
[2018-07-27] MEDS: BUDESONIDE 1 MG/2 ML NEBU INHALATION SCH (08:41)
[2018-07-27] MEDS: FORMOTEROL FUMARATE 20 MCG/2 ML NEBU INHALATION SCH (08:41)
[2018-07-27] MEDS: guaiFENesin 600 MG TABLET.ER PO PRN (09:39)
[2018-07-27] MEDS: AMPHETAMINE PO SCH (09:54)
[2018-07-27] MEDS: DEXTROAMPHETAMINE PO SCH (09:54)
[2018-07-27 11:47] LABS: Glucose,Whole Blood 99 mg/dL (75-99)
--- NOTE | 2018-07-27 13:27 | P.PN ---
Subjective Progress Note Date: 07/27/18 Principal diagnosis: COPD exacerbation Progress note dated 07/27/2018 A 63-year-old female admitted with a diagnosis of COPD exacerbation complicated by tracheobronchitis. She has a history of chronic hypoxemic respiratory failure hypertension rheumatoid arthritis pneumonia rectal bleeding bulbar cancer UTI colitis gout and seasonal ALLERGIES. The patient is well enough to be discharged today. She actually was well enough and our opinion to be discharged yesterday. She apparently wanted to stay another day in the hospital was decided to let her stay. Anyway, today she's feeling better again. She has minimal respiratory complaints including minimal cough without phlegm production and minimal shortness of breath on exertion. Objective - Vital Signs Vital signs: Vital Signs Temp 98.2 F 07/27/18 06:43 Pulse 88 07/27/18 11:50 Resp 16 07/27/18 08:00 BP 128/74 07/27/18 06:43 Pulse Ox 95 07/27/18 06:43 Intake & Output 07/26/18 07/27/18 07/27/18 18:59 06:59 18:59 Other: Voiding Method Toilet # Voids 1 1 - Exam No acute distress, oriented 3. Nasal O2 in place. No respiratory distress. HEENT examination is grossly unremarkable. Mucous membranes are moist. No oral lesions. Neck supple. Full range of motion. No adenopathy thyromegaly or neck vein distention. Cardiovascular examination reveals regular rhythm rate. S1-S2 normal. No S3 or S4. No discernible murmur noted. Lungs reveal significantly diminished but mostly clear breath sounds. There are a few scattered mild rhonchi and wheezes. Slight prolongation on forced maneuver. Breath sounds are diminished throughout. Abdomen soft bowel sounds are heard. No masses or tenderness. Extremities are intact. No cyanosis clubbing or edema. Skin is without rash or lesion. Neurologic examination is brief but nonfocal. - Labs CBC & Chem 7: 07/25/18 07:37 07/25/18 07:37 Labs: Abnormal Lab Results - Last 24 Hours (Table) 07/27/18 Range/Units 07:24 POC Glucose (mg/dL) 121 H (75-99) mg/dL Microbiology - Last 24 Hours (Table) 07/21/18 18:39 Blood Culture - Preliminary Blood No Growth after 120 hours Assessment and Plan Assessment: Assessment COPD exacerbation complicated by purulent tracheobronchitis, without solomon pneumonia Chronic hypoxemic respiratory failure History of hypertension History of rheumatoid arthritis Previous history of pneumonia Previous history of rectal bleeding Cancer of the vulva. History of UTI Colitis by history History of gout History of seasonal ALLERGIES Plan: Plan dated 07/22/2018 The patient's medications will be reviewed. We'll make sure that she is on a short acting beta agonist, a short acting muscarinic antagonist, a long-acting beta agonist, inhaled corticosteroid. In addition, she'll need some antibiotics and systemic corticosteroids. The patient seems to turn around relatively quickly. Typically by day 3 or 4, she's back to baseline. No additional recommendations are made. We'll continue to follow. Prognosis is guarded. White count was 12.1 hemoglobin and hematocrit and platelet count all normal. PT INR and PTT are normal. Sodium was 144 chlorides 108 CO2 26 and anion gap 10. BUN and creatinine were normal. Plan dated 07/27/2018 The patient can be discharged home today. We'll leave that up to the primary. The patient should be discharged home on a short course of antibiotics and a prednisone burst and taper. Typically we would start off with 40 mg of prednisone a day for 4 days and reduce by 10 mg every fourth day. 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 Additional recommendations and suggestions are forthcoming. No new laboratory data today. No additional recommendations are made. Time with Patient: Less than 30
[2018-07-27 14:23] VITALS: BP 115/71; PULSE 99; RESP 18; TEMP 97.2
--- NOTE | 2018-07-27 14:38 | P.DS ---
Providers Date of admission: 07/25/18 06:41 Expected date of discharge: 07/27/18 Attending physician: Darrius Cook Consults: 07/21/18 19:47 Consult Physician Routine Consulting Provider: Jose Elias Goodman Consult Reason/Comments: COPD exacerbation Do you want consulting provider notified?: Yes Primary care physician: Maryana Sheth [facility] Course: Ms. Mohr is is a pleasant 63 yo F, who follows with Dr. Meryl Mijares, with pmh of COPD , gout, cancer of the appendix present because of dyspnea which was getting progressively worse especially over the last 3 days associated with cough and yellowish phlegm. Patient denies fever no chest pain. She has chronic back pain for months. Patient was not is also taking nystatin however she denies any oral thrush and she states she uses it only as when necessary. Patient is not steroid dependent. She has oxygen at home 07/23/2018 Patient improved this little better as well as her chest pain and coughing with phlegm. Lasix was added by the pulmonary team and input is appreciated. Patient also complains from rash on her base symmetrical since admission and she has for a while. With some dryness and scaling. Failed supportive treatment will try topical steroids. Patient informed and she agrees 07/24/2018 Patient still significantly dyspneic. And she still on 5 L oxygen via nasal cannula. She can't yellow phlegm about twice today after that she felt better regarding her breathing. She has mild chest pain with coughing. Patient today her face rash was looking better with steroid ointment. Pulmonary input is appreciated 07/25/2018 Patient remains dyspneic, however she needed today less oxygen via nasal cannula from 5 L yesterday to 3 L. She is improving slowly and gradually. Pulmonary input and follow-up is appreciated. Patient does not need bronchoscopy with broncoscopy with BAL, she looks more dry than congested. Continue same treatment with IV steroids and antibiotics, breathing treatment with oxygen. 07/26/2018 Patient showed interval improvement although she still limited dyspneic. Her oxygen requirement is decreased to 3 L/m oxygen via NC. She still have some scattered wheezing and decrease air entry. She's been evaluated by pulmonary team and their input is appreciated, they think patient could be discharged however patient didn't feel ready and she felt suddenly treatment. 07/27/2018 - patient thinks she is straight to go home. She has been cleared by pulmonology yesterday. Patient states that her breathing is back to her baseline. She uses oxygen on when necessary basis. Patient still has some yellowish sputum that she is able to cough up. No other active complaints. Since vitals at the time of discharge temperature 97.2. Heart rate 80 -90. Respiratory rate 18. Blood pressure 1 15 x 72. Saturating 97% on 3 L of nasal cannula. On physical exam GENERAL: The patient is alert and oriented x3, not in any acute distress. Well developed, well nourished. HEENT: Pupils are round and equally reacting to light. EOMI. No scleral icterus. No conjunctival pallor. Normocephalic, atraumatic. No pharyngeal erythema. No thyromegaly. CARDIOVASCULAR: S1 and S2 present. No murmurs, rubs, or gallops. PULMONARY: Decreased breath sounds in all lung guzman. No audible wheezing. ABDOMEN: Soft, nontender, nondistended, normoactive bowel sounds. No palpable organomegaly. MUSCULOSKELETAL: No joint swelling or deformity. EXTREMITIES: No cyanosis, clubbing, or pedal edema. NEUROLOGICAL: Gross neurological examination did not reveal any focal deficits. -SKIN: bilateral face erythema, bilateral and symmetrical across the nose bridge . Patient completed her antibiotic course during the hospital stay. She received IV steroids during the hospital stay. She is being discharged on a prednisone burst and taper doses. She is advised to take 40 mg for 4 days then 30 mg for 4 days then 20 mg for 4 days then 10 mg for 4 days and 5 mg for 4 days and to completed 5 mg for 4 days. She is advised to follow up with her PCP and pulmonary in 3-4 days. More than 30 minutes spent for the discharge of the patient. Patient Condition at Discharge: Stable Plan - Discharge Summary Discharge Rx Participant: Yes New Discharge Prescriptions: New predniSONE 20 mg PO BID 4 Days #8 tab predniSONE 30 mg PO DAILY #4 tab predniSONE 20 mg PO DAILY #4 tab predniSONE 10 mg PO TID #4 tab predniSONE 5 mg PO DAILY #4 tab Continue Benazepril HCl 20 mg PO QAM Furosemide [Lasix] 40 mg PO DAILY PRN PRN Reason: Edema HYDROcodone/APAP 10-325MG [[place] 10-325] 1 tab PO TID PRN PRN Reason: Moderate To Severe Pain Polyethylene Glycol 3350 [Miralax] 17 gm PO DAILY Formoterol Fumarate [Perforomist] 20 mcg INHALATION RT-BID Budesonide [Pulmicort] 0.5 mg INHALATION RT-BID Dextroamphetamine/Amphetamine [Adderall Xr] 15 mg PO QAM diphenhydrAMINE [Benadryl] 50 mg PO HS Montelukast [Singulair] 10 mg PO HS #30 tab Nystatin 100,000 Unit/ml Susp [Mycostatin Oral Susp] 500,000 unit PO QID # 100 ml Multivit-Min/FA/Lycopen/Lutein [Centrum Silver Tablet] 1 tab PO DAILY guaiFENesin [Mucinex] 600 mg PO Q12HR PRN PRN Reason: Congestion Sodium Chloride 0.65% Nasal [Deep Sea (Saline)] 2 spray NASAL QID PRN spray PRN Reason: Dry Nasal Passages Ipratropium-Albuterol Nebulize [Duoneb 0.5 mg-3 mg/3 ml Soln] 3 ml INHALATION RT-QID amLODIPine [Norvasc] 5 mg PO DAILY Tetrahydrozoline 0.05% Ophth [Visine Eye Drops] 1 drop BOTH EYES QID Albuterol Sulfate [Proair Hfa] 1 - 2 puff INHALATION RT-Q6H PRN PRN Reason: Shortness Of Breath Discharge Medication List Benazepril HCl 20 mg PO QAM 01/24/16 [History] Furosemide [Lasix] 40 mg PO DAILY PRN 05/31/17 [History] HYDROcodone/APAP 10-325MG [[place] 10-325] 1 tab PO TID PRN 12/29/17 [History] Budesonide [Pulmicort] 0.5 mg INHALATION RT-BID 04/02/18 [History] Dextroamphetamine/Amphetamine [Adderall Xr] 15 mg PO QAM 04/02/18 [History] Formoterol Fumarate [Perforomist] 20 mcg INHALATION RT-BID 04/02/18 [History] Polyethylene Glycol 3350 [Miralax] 17 gm PO DAILY 04/02/18 [History] diphenhydrAMINE [Benadryl] 50 mg PO HS 04/02/18 [History] Montelukast [Singulair] 10 mg PO HS #30 tab 04/12/18 [Rx] Nystatin 100,000 Unit/ml Susp [Mycostatin Oral Susp] 500,000 unit PO QID #100 ml 04/12/18 [Rx] Multivit-Min/FA/Lycopen/Lutein [Centrum Silver Tablet] 1 tab PO DAILY 04/19/18 [ History] guaiFENesin [Mucinex] 600 mg PO Q12HR PRN 04/19/18 [History] Sodium Chloride 0.65% Nasal [Deep Sea (Saline)] 2 spray NASAL QID PRN spray [Rx] Albuterol Sulfate [Proair Hfa] 1 - 2 puff INHALATION RT-Q6H PRN 07/21/18 [ History] Ipratropium-Albuterol Nebulize [Duoneb 0.5 mg-3 mg/3 ml Soln] 3 ml INHALATION RT -QID 07/21/18 [History] Tetrahydrozoline 0.05% Ophth [Visine Eye Drops] 1 drop BOTH EYES QID 07/21/18 [ History] amLODIPine [Norvasc] 5 mg PO DAILY 07/21/18 [History] predniSONE 5 mg PO DAILY #4 tab 07/27/18 [Rx] predniSONE 10 mg PO TID #4 tab 07/27/18 [Rx] predniSONE 20 mg PO BID 4 Days #8 tab 07/27/18 [Rx] predniSONE 20 mg PO DAILY #4 tab 07/27/18 [Rx] predniSONE 30 mg PO DAILY #4 tab 07/27/18 [Rx] Follow up Appointment(s)/Referral(s): Angel Cade DO [Doctor of Osteopathic Medicine] - 1 Week Patient Instructions/Handouts: COPD (Chronic Obstructive Pulmonary Disease) (DC ) Activity/Diet/Wound Care/Special Instructions: DC RX Cardiac diet. Activity as tolerated Home oxygen as prescribed. NO smoking. No alcohol use. Discharge Disposition: HOME SELF-CARE
== END 2018-07-27 16:32 | disposition home or self-care (01) | DRG 191 ==
LOC: EC 18:11 → 4MS4W 19:47 → INTOOBSV 19:47 → OBSVTOIN 07-25 06:41 → 4MS4W 07-27 11:36
PROVIDERS: ADMIT Internal Medicine; ATTEND Internal Medicine
PROC: 3E0234Z Introduction of Serum, Toxoid and Vaccine into Muscle, Percutaneous Approach (ICD-10-PCS; principal; 2018-07-23)
DX: J43.9 Emphysema, unspecified (principal); J80 Acute respiratory distress syndrome; J96.11 Chronic respiratory failure with hypoxia; Z23 Encounter for immunization; J41.1 Mucopurulent chronic bronchitis; I10 Essential (primary) hypertension; J30.2 Other seasonal allergic rhinitis; M85.80 Other specified disorders of bone density and structure, unspecified site; M06.9 Rheumatoid arthritis, unspecified; G89.29 Other chronic pain; M54.9 Dorsalgia, unspecified; F40.240 Claustrophobia; Z79.51 Long term (current) use of inhaled steroids; Z99.81 Dependence on supplemental oxygen; Z79.899 Other long term (current) drug therapy; Z87.891 Personal history of nicotine dependence; Z87.01 Personal history of pneumonia (recurrent); Z85.44 Personal history of malignant neoplasm of other female genital organs; Z87.440 Personal history of urinary (tract) infections; Z85.038 Personal history of other malignant neoplasm of large intestine; Z87.19 Personal history of other diseases of the digestive system; Z90.710 Acquired absence of both cervix and uterus; Z96.651 Presence of right artificial knee joint; Z86.59 Personal history of other mental and behavioral disorders; Z87.39 Personal history of other diseases of the musculoskeletal system and connective tissue; Z88.4 Allergy status to anesthetic agent; Z88.5 Allergy status to narcotic agent; Z88.8 Allergy status to other drugs, medicaments and biological substances; Z80.0 Family history of malignant neoplasm of digestive organs; Z80.49 Family history of malignant neoplasm of other genital organs
CPT/HCPCS: 36415; 71046; 80048; 80053; 82550; 82553; 83605; 83735; 83880; 84484; 85025; 85610; 85730; 87040; 90732; 93005; 94640; 94667; 94760; 96361; 96365; 96375; 99291

== ENCOUNTER 2018-08-20 21:52 | Inpatient (IN) | payer MEDICARE, OTHER ==
[2018-08-20] MEDS ORDERED: ACETAMINOPHEN TAB 500 MG TAB PO STA (22:12)
[2018-08-20 22:44] LABS: Basophils % (A) 0 %; Eosinophils % (A) 8 %; HCT 35.6 % (34.0-46.0); HGB 11.5 gm/dL (11.4-16.0); Lymphocytes # (A) 2.4 k/uL (1.0-4.8); Lymphocytes % (A) 21 %; MCH 30.4 pg (25.0-35.0); MCHC 32.4 g/dL (31.0-37.0); Mean Platelet Volume 7.2; Monocytes # (A) 0.7 k/uL (0-1.0); Monocytes % (A) 6 %; Neutrophils # (A) 7.3 k/uL (1.3-7.7); Neutrophils % (A) 63 %; Platelet Count 500 k/uL (150-450); RBC 3.79 m/uL (3.80-5.40); RDW 14.1 % (11.5-15.5); WBC 11.7 k/uL (3.8-10.6)
[2018-08-20 22:49] LABS: MCV 93.8 fL (80.0-100.0)
[2018-08-20 22:53] LABS: Albumin 3.3 g/dL (3.5-5.0); Calcium 9.6 mg/dL (8.4-10.2); Total Bilirubin 0.4 mg/dL (0.2-1.3); Total Protein 6.2 g/dL (6.3-8.2)
[2018-08-20 22:54] LABS: Partial Thromboplastin Time 22.7 sec (22.0-30.0); Prothrombin Time 9.5 sec (9.0-12.0)
[2018-08-20 22:56] LABS: Potassium 5.2 mmol/L (3.5-5.1)
--- NOTE | 2018-08-20 23:07 | ED ---
General Adult HPI - General Chief complaint: Shortness of Breath Stated complaint: DOMI Time Seen by Provider: 08/20/18 22:12 Source: patient, EMS Mode of arrival: EMS Limitations: no limitations - History of Present Illness Initial comments: Estelle is a 63-year-old female with past medical history as documented who presents the ED today via EMS for evaluation of shortness of breath. Patient reports she's had progressively worsening shortness of breath, minimally productive cough, subjective fevers, chills and generalized fatigue. Patient reports that he symptoms of progressively worsened throughout the day despite trying to rest which prompted her call 911 for transport to the hospital. She denies any exertional chest pain or palpitations. Patient does report right -sided chest pain which is worse with deep inspiration. She denies any nausea vomiting or diarrhea. She reports she is taking her home medications including home [place] without any improvement in her symptoms. - Related Data Home Medications Medication Instructions Recorded Confirmed Benazepril HCl 20 mg PO QAM 01/24/16 08/20/18 Furosemide [Lasix] 40 mg PO DAILY PRN 05/31/17 08/20/18 HYDROcodone/APAP 10-325MG [[place] 1 tab PO TID PRN 12/29/17 08/20/18 10-325] Budesonide [Pulmicort] 0.5 mg INHALATION RT-BID 04/02/18 08/20/18 Dextroamphetamine/Amphetamine 15 mg PO QAM 04/02/18 08/20/18 [Adderall Xr] Formoterol Fumarate [Perforomist] 20 mcg INHALATION RT-BID 04/02/18 08/20/18 Polyethylene Glycol 3350 [Miralax] 17 gm PO DAILY PRN 04/02/18 08/20/18 diphenhydrAMINE [Benadryl] 50 mg PO HS 04/02/18 08/20/18 Multivit-Min/FA/Lycopen/Lutein 1 tab PO DAILY 04/19/18 08/20/18 [Centrum Silver Tablet] guaiFENesin [Mucinex] 600 mg PO Q12HR PRN 04/19/18 08/20/18 Albuterol Sulfate [Proair Hfa] 1 - 2 puff INHALATION RT-Q6H PRN 07/21/18 Ipratropium-Albuterol Nebulize 3 ml INHALATION RT-QID 07/21/18 08/20/18 [Duoneb 0.5 mg-3 mg/3 ml Soln] Tetrahydrozoline 0.05% Ophth 1 drop BOTH EYES QID 07/21/18 08/20/18 [Visine Eye Drops] amLODIPine [Norvasc] 5 mg PO DAILY 07/21/18 08/20/18 Previous Rx's Medication Instructions Recorded Montelukast [Singulair] 10 mg PO HS #30 tab 04/12/18 Sodium Chloride 0.65% Nasal [Deep 2 spray NASAL QID PRN spray 04/25/18 Sea (Saline)] Allergies Allergy/AdvReac Type Severity Reaction Status Date / Time infliximab [From Remicade] Allergy Dyspnea/HIV Verified 08/20/18 22:44 ES procaine [From Novocain] Allergy Unknown Verified 08/20/18 22:44 propoxyphene HCl Allergy Unknown Verified 08/20/18 22:44 [From Darvon] Review of Systems ROS Statement: Those systems with pertinent positive or pertinent negative responses have been documented in the HPI. ROS Other: All systems not noted in ROS Statement are negative. Past Medical History Past Medical History: Cancer, COPD, Hypertension, Pneumonia, Rheumatoid Arthritis (RA) Additional Past Medical History / Comment(s): History of rectal bleed, vulva cancer, UTI, colitis, benign polyps, gout, osteopenia, sinus/seasonal allergies , ca of appendix. History of Any Multi-Drug Resistant Organisms: None Reported Past Surgical History: Appendectomy, Hysterectomy, Joint Replacement Additional Past Surgical History / Comment(s): right knee replacement, surgery to recome vulva cancer, EGD/colonoscopy, lasik eye surgery, right colectomy r/t SBO (wound dehiscence/closure). Past Anesthesia/Blood Transfusion Reactions: No Reported Reaction Additional Past Anesthesia/Blood Transfusion Reaction / Comment(s): Claustrophobia Past Psychological History: Depression Smoking Status: Former smoker Past Alcohol Use History: Daily, Occasional Past Drug Use History: None Reported - Past Family History Father Family Medical History: Cancer Additional Family Medical History / Comment(s): COLON Mother Family Medical History: Cancer Additional Family Medical History / Comment(s): ESOPHAGUS Sister(s) Family Medical History: Cancer Additional Family Medical History / Comment(s): CERVICAL General Exam - General Exam Comments Initial Comments: Physical Exam GENERAL: Chronically ill-appearing, appears older than stated age Tachypneic, tachycardic, febrile HENT: Normocephalic, Atraumatic. EYES: PERRL, EOMI PULMONARY: Crackles at bilateral bases CARDIOVASCULAR: Tachycardic, regular ABDOMEN: Soft and nontender with normal bowel sounds. SKIN: Skin is clear with no lesions or rashes and otherwise unremarkable. : Deferred NEUROLOGIC: Patient is alert and oriented x3. Moving all extremities spontaneously MUSCULOSKELETAL: Normal extremities with adequate strength and full range of motion. No lower extremity swelling or edema. No calf tenderness. PSYCHIATRIC: Normal psychiatric evaluation. Limitations: no limitations Limitations: no limitations Course Vital Signs 08/20/18 08/20/18 08/20/18 21:56 22:00 22:10 Temperature 100.4 F H Pulse Rate 126 H 112 H Respiratory 28 H 21 20 Rate Blood Pressure 147/99 147/99 157/108 O2 Sat by Pulse 98 93 L 95 Oximetry 08/20/18 08/20/18 08/20/18 22:22 22:40 23:30 Temperature Pulse Rate 120 H Respiratory 22 20 18 Rate Blood Pressure 164/117 113/65 O2 Sat by Pulse 95 95 Oximetry 08/21/18 00:10 Temperature Pulse Rate 101 H Respiratory 18 Rate Blood Pressure 111/77 O2 Sat by Pulse 97 Oximetry EKG Findings - EKG Comments: EKG Findings:: EKG obtained at 2217, rate is 113, rhythm is sinus tachycardia, there is a normal axis, normal intervals, OR 114, QRS 66, QTC is 444. There is noted to be frequent PVCs. There is no acute ST elevations or depressions no evidence of acute ischemia or infarction. Medical Decision Making - Medical Decision Making Patient was seen and evaluated, vital signs were reviewed, patient was noted to be tachycardic, tachypneic and febrile Full sepsis workup was ordered Chest x-ray suggestive of pneumonia, considering patient has recent admission I will treat for age Pneumonia with drink and Zosyn Patient's lactic acid is not elevated, she has no hypotension, tachycardia is improving with IV fluids, based on this I don't feel the patient warrants a large IV fluid bolus, I will start maintenance fluids Patient was reevaluated, reports back pain secondary to laying in the ER yesenia , in addition has a pleuritic chest pain. Patient was given morphine. The patient was reevaluated after morphine and states that it didn't help much, I will order her home oral pain medications. Patient is agreeable to this. The patient remained hemodynamically stable throughout ED stay and was admitted to the floor for sepsis secondary to Pneumonia. - Lab Data Result diagrams: 08/20/18 22:32 08/20/18 22:32 Lab Results 08/20/18 08/20/18 08/20/18 Range/Units 22:32 22:32 22:32 WBC (3.8-10.6) k/uL RBC (3.80-5.40) m/uL Hgb (11.4-16.0) gm/dL Hct (34.0-46.0) % MCV (80.0-100.0) fL MCH (25.0-35.0) pg MCHC (31.0-37.0) g/dL RDW (11.5-15.5) % Plt Count (150-450) k/uL Neutrophils % % Lymphocytes % % Monocytes % % Eosinophils % % Basophils % % Neutrophils # (1.3-7.7) k/uL Lymphocytes # (1.0-4.8) k/uL Monocytes # (0-1.0) k/uL Eosinophils # (0-0.7) k/uL Basophils # (0-0.2) k/uL PT (9.0-12.0) sec INR (<1.2) APTT (22.0-30.0) sec Sodium 132 L (137-145) mmol/L Potassium 5.2 H (3.5-5.1) mmol/L Chloride 97 L (98-107) mmol/L Carbon Dioxide 27 (22-30) mmol/L Anion Gap 8 mmol/L BUN 15 (7-17) mg/dL Creatinine 0.89 (0.52-1.04) mg/dL Est GFR (CKD-EPI)AfAm 79 (>60 ml/min/1.73 sqM) Est GFR (CKD-EPI)NonAf 68 (>60 ml/min/1.73 sqM) Glucose 125 H (74-99) mg/dL Plasma Lactic Acid Osmani 0.9 (0.7-2.0) mmol/L Calcium 9.6 (8.4-10.2) mg/dL Total Bilirubin 0.4 (0.2-1.3) mg/dL AST 21 (14-36) U/L ALT 24 (9-52) U/L Alkaline Phosphatase 54 (38-126) U/L Total Creatine Kinase <20 L (30-135) U/L CK-MB (CK-2) 0.7 (0.0-2.4) ng/mL CK-MB (CK-2) Rel Index Troponin I <0.012 (0.000-0.034) ng/mL Total Protein 6.2 L (6.3-8.2) g/dL Albumin 3.3 L (3.5-5.0) g/dL Influenza Type A RNA (Not Detectd) Influenza Type B (PCR) (Not Detectd) 08/20/18 08/20/18 08/20/18 Range/Units 22:32 22:32 23:21 WBC 11.7 H (3.8-10.6) k/uL RBC 3.79 L (3.80-5.40) m/uL Hgb 11.5 (11.4-16.0) gm/dL Hct 35.6 (34.0-46.0) % MCV 93.8 D (80.0-100.0) fL MCH 30.4 (25.0-35.0) pg MCHC 32.4 (31.0-37.0) g/dL RDW 14.1 (11.5-15.5) % Plt Count 500 H (150-450) k/uL Neutrophils % 63 % Lymphocytes % 21 % Monocytes % 6 % Eosinophils % 8 % Basophils % 0 % Neutrophils # 7.3 (1.3-7.7) k/uL Lymphocytes # 2.4 (1.0-4.8) k/uL Monocytes # 0.7 (0-1.0) k/uL Eosinophils # 1.0 H (0-0.7) k/uL Basophils # 0.0 (0-0.2) k/uL PT 9.5 (9.0-12.0) sec INR 1.0 (<1.2) APTT 22.7 (22.0-30.0) sec Sodium (137-145) mmol/L Potassium (3.5-5.1) mmol/L Chloride (98-107) mmol/L Carbon Dioxide (22-30) mmol/L Anion Gap mmol/L BUN (7-17) mg/dL Creatinine (0.52-1.04) mg/dL Est GFR (CKD-EPI)AfAm (>60 ml/min/1.73 sqM) Est GFR (CKD-EPI)NonAf (>60 ml/min/1.73 sqM) Glucose (74-99) mg/dL Plasma Lactic Acid Osmani (0.7-2.0) mmol/L Calcium (8.4-10.2) mg/dL Total Bilirubin (0.2-1.3) mg/dL AST (14-36) U/L ALT (9-52) U/L Alkaline Phosphatase (38-126) U/L Total Creatine Kinase (30-135) U/L CK-MB (CK-2) (0.0-2.4) ng/mL CK-MB (CK-2) Rel Index Troponin I (0.000-0.034) ng/mL Total Protein (6.3-8.2) g/dL Albumin (3.5-5.0) g/dL Influenza Type A RNA Not Detected (Not Detectd) Influenza Type B (PCR) Not Detected (Not Detectd) Disposition Clinical Impression: Pneumonia Disposition: ADMITTED IP TO THIS HOSP Condition: Stable
[2018-08-20 23:09] LABS: Creatine Kinase <20 U/L (30-135)
--- NOTE | 2018-08-20 23:10 | XR ---
EXAMINATION TYPE: XR chest 2V DATE OF EXAM: 08/20/2018 COMPARISON: 07/21/2018 HISTORY: Chest congestion TECHNIQUE: Frontal and lateral views of the chest are obtained. FINDINGS: There is some mild reticular infiltrate in the left lower lobe. There is also minimal reti cular density lateral right lung base. The other lung guzman are clear. Heart and mediastinum are wit hin normal limits. There is no heart failure. Costophrenic angles are clear. There is osteopenia with anterior wedging of T8 and T7 vertebra. There are chest leads. IMPRESSION: There are new mild bilateral lower lobe pulmonary infiltrates compared to last exam and consistent with inflammatory disease. No heart failure. Normal heart. Stable thoracic compression fra ctures.
[2018-08-20] MEDS: SODIUM CHLORIDE 0.9% 500 ML 500 ML IV SCH ×2 (23:16→23:17)
[2018-08-20 23:21] LABS: Creatine Kinase MB 0.7 ng/mL (0.0-2.4); Troponin I <0.012 ng/mL (0.000-0.034)
[2018-08-20] MEDS ORDERED: PIPERACILLIN-TAZOBACTAM 3.375 GM in DEXTROSE/WATER 1 50ML.BAG IVPB STA (23:31)
[2018-08-20] MEDS ORDERED: VANCOMYCIN IV PER PHARMACY 1 EACH MISC MISCELLANE PRN (23:31)
[2018-08-20] MEDS ORDERED: VANCOMYCIN 1,250 MG in SODIUM CHLORIDE 0.9% 250 ML IVPB STA (23:39)
[2018-08-21] MEDS ORDERED: MORPHINE SULFATE 4 MG/ML SYRINGE IVP STA (00:11)
[2018-08-21] MEDS ORDERED: FUROSEMIDE 40 MG TAB PO PRN (00:33)
[2018-08-21] MEDS ORDERED: IPRATROPIUM-ALBUTEROL 3 ML NEB INHALATION PRN ×2 (01:29→01:52)
[2018-08-21] MEDS: HYDROcodone/APAP 10-325MG 1 EACH TAB PO PRN ×3 (01:42→20:08)
[2018-08-21] MEDS: SODIUM CHLORIDE 0.9% 1,000 ML IV SCH ×3 (02:22→14:06)
[2018-08-21 03:25] VITALS: BMI 28.7
[2018-08-21] MEDS: IPRATROPIUM-ALBUTEROL 3 ML NEB INHALATION SCH ×5 (04:21→20:52)
[2018-08-21] MEDS: FORMOTEROL FUMARATE 20 MCG/2 ML NEBU INHALATION SCH ×2 (07:19→20:52)
[2018-08-21] MEDS: BUDESONIDE 0.5 MG/2 ML NEBU INHALATION SCH ×2 (07:19→20:52)
[2018-08-21 07:47] LABS: Glucose,Whole Blood 117 mg/dL (75-99)
[2018-08-21] MEDS ORDERED: methylPREDNISolone SOD SUCCI 125 MG/2 ML VIAL IV SCH (08:00)
[2018-08-21] MEDS: LISINOPRIL 20 MG TAB PO SCH (08:20)
[2018-08-21] MEDS: HEPARIN SODIUM,PORCINE 5,000 UNIT/ML 1 ML VIAL SQ SCH ×2 (08:36→20:15)
[2018-08-21] MEDS: PANTOPRAZOLE 40 MG/10 ML VIAL IVP SCH (08:36)
[2018-08-21] MEDS: PIPERACILLIN-TAZOBACTAM 3.375 GM in DEXTROSE/WATER 1 50ML.BAG IVPB SCH ×3 (08:37→23:52)
[2018-08-21] MEDS ORDERED: FAMOTIDINE 20 MG/2 ML VIAL IV SCH (09:00)
[2018-08-21] MEDS ORDERED: amLODIPine 5 MG TAB PO SCH (09:00)
[2018-08-21 09:17] LABS: Basophils % (A) 0 %; Eosinophils % (A) 10 %; HCT 32.9 % (34.0-46.0); HGB 10.3 gm/dL (11.4-16.0); Hypochromasia Slight; Lymphocytes # (A) 2.7 k/uL (1.0-4.8); Lymphocytes % (A) 28 %; MCH 30.2 pg (25.0-35.0); MCHC 31.5 g/dL (31.0-37.0); MCV 96.1 fL (80.0-100.0); Mean Platelet Volume 7.4; Monocytes # (A) 0.6 k/uL (0-1.0); Monocytes % (A) 6 %; Neutrophils % (A) 53 %; Platelet Count 430 k/uL (150-450); RBC 3.42 m/uL (3.80-5.40); RDW 14.3 % (11.5-15.5); WBC 9.6 k/uL (3.8-10.6)
[2018-08-21 09:37] LABS: Calcium 8.7 mg/dL (8.4-10.2); Potassium 4.4 mmol/L (3.5-5.1)
[2018-08-21 09:48] LABS: Appearance,Urine Cloudy (Clear); Bilirubin,Urine Negative (Negative); Blood,Urine Trace (Negative); Color,Urine Yellow; Glucose,Urine (UA) Negative (Negative); Ketones,Urine Negative (Negative); Leukocyte Esterase,Urine Large (Negative); Mucus,Urine Rare /hpf; Nitrite,Urine Negative (Negative); PH, Urine 5.5 (5.0-8.0); Protein,Urine Negative (Negative); RBC,Urine 1 /hpf (0-5); Specific Gravity,Urine 1.012 (1.001-1.035); Squamous Epithelial Cell,Urine 1 /hpf (0-4); Urobilinogen,Urine <2.0 mg/dL (<2.0); WBC,Urine 9 /hpf (0-5)
[2018-08-21] MEDS ORDERED: POLYETHYLENE GLYCOL 3350 17 GM POWD.PACK PO PRN (11:02)
[2018-08-21] MEDS: INSULIN ASPART 100 UNIT/ML 1 ML 10 ML VIAL SQ SCH ×3 (11:50→22:21)
[2018-08-21] MEDS: TETRAHYDROZOLINE 0.05% OPHTH DROPS 15 ML BTL BOTH EYES SCH ×3 (11:55→20:20)
[2018-08-21 12:01] LABS: Glucose,Whole Blood 131 mg/dL (75-99)
--- NOTE | 2018-08-21 14:03 | P.HPIM ---
History of Present Illness 63-year-old female with past medical history as documented who presents the ED today via EMS for evaluation of shortness of breath. Patient reports she's had progressively worsening shortness of breath, minimally productive cough, subjective fevers, chills and generalized fatigue. Patient reports that he symptoms of progressively worsened throughout the day despite trying to rest. She denies any exertional chest pain or palpitations. Comparing of cough with mild sputum production. Patient is found to have bilateral lower lobe infiltrates significant on the right side considering her fever and leukocytosis patient was started on antibiotic for pneumonia healthcare associated pneumonia vancomycin and Zosyn vancomycin was discontinued patient does use 3 L of oxygen at home does have end-stage COPD patient is presently on 3 L. Patient does have significant wheezing on exam will be started on prednisone 40 mg daily along with inhalational treatments pulmonary was consulted from ER Review of Systems REVIEW OF SYSTEMS: CONSTITUTIONAL: No fever, no malaise, no fatigue. HEENT: No recent visual problems or hearing problems. Denied any sore throat. CARDIOVASCULAR: No chest pain, orthopnea, PND, no palpitations, no syncope. PULMONARY: As mentioned in HPI no hemoptysis. GASTROINTESTINAL: No diarrhea, no nausea, no vomiting, no abdominal pain. Normoactive bowel sounds. NEUROLOGICAL: No headaches, no weakness, no numbness. HEMATOLOGICAL: Denies any bleeding or petechiae. GENITOURINARY: Denies any burning micturition, frequency, or urgency. MUSCULOSKELETAL/RHEUMATOLOGICAL: Denies any joint pain, swelling, or any muscle pain. ENDOCRINE: Denies any polyuria or polydipsia. The rest of the 14-point review of systems is negative. Past Medical History Past Medical History: Cancer, COPD, Hypertension, Pneumonia, Rheumatoid Arthritis (RA) Additional Past Medical History / Comment(s): History of rectal bleed, vulva cancer, UTI, colitis, benign polyps, gout, osteopenia, sinus/seasonal allergies , ca of appendix. History of Any Multi-Drug Resistant Organisms: None Reported Past Surgical History: Appendectomy, Hysterectomy, Joint Replacement Additional Past Surgical History / Comment(s): right knee replacement, surgery to recome vulva cancer, EGD/colonoscopy, lasik eye surgery, right colectomy r/t SBO (wound dehiscence/closure). Past Anesthesia/Blood Transfusion Reactions: No Reported Reaction Additional Past Anesthesia/Blood Transfusion Reaction / Comment(s): Claustrophobia Past Psychological History: Depression Smoking Status: Former smoker Past Alcohol Use History: Daily, Occasional Past Drug Use History: None Reported - Past Family History Father Family Medical History: Cancer Additional Family Medical History / Comment(s): COLON Mother Family Medical History: Cancer Additional Family Medical History / Comment(s): ESOPHAGUS Sister(s) Family Medical History: Cancer Additional Family Medical History / Comment(s): CERVICAL Medications and Allergies Home Medications Medication Instructions Recorded Confirmed Type Benazepril HCl 20 mg PO QAM 01/24/16 08/20/18 History Furosemide [Lasix] 40 mg PO DAILY PRN 05/31/17 08/20/18 History HYDROcodone/APAP 10-325MG [[place] 1 tab PO TID PRN 12/29/17 08/20/18 History 10-325] Budesonide [Pulmicort] 0.5 mg INHALATION RT-BID 04/02/18 08/20/18 History Dextroamphetamine/Amphetamine 15 mg PO QAM 04/02/18 08/20/18 History [Adderall Xr] Formoterol Fumarate [Perforomist] 20 mcg INHALATION RT-BID 04/02/18 08/20/18 History Polyethylene Glycol 3350 [Miralax] 17 gm PO DAILY PRN 04/02/18 08/20/18 History diphenhydrAMINE [Benadryl] 50 mg PO HS 04/02/18 08/20/18 History Montelukast [Singulair] 10 mg PO HS #30 tab 04/12/18 08/20/18 Rx Multivit-Min/FA/Lycopen/Lutein 1 tab PO DAILY 04/19/18 08/20/18 History [Centrum Silver Tablet] guaiFENesin [Mucinex] 600 mg PO Q12HR PRN 04/19/18 08/20/18 History Sodium Chloride 0.65% Nasal [Deep 2 spray NASAL QID PRN spray 04/25/18 Rx Sea (Saline)] Albuterol Sulfate [Proair Hfa] 1 - 2 puff INHALATION RT-Q6H PRN 07/21/18 History Ipratropium-Albuterol Nebulize 3 ml INHALATION RT-QID 07/21/18 08/20/18 History [Duoneb 0.5 mg-3 mg/3 ml Soln] Tetrahydrozoline 0.05% Ophth 1 drop BOTH EYES QID 07/21/18 08/20/18 History [Visine Eye Drops] amLODIPine [Norvasc] 5 mg PO DAILY 07/21/18 08/20/18 History Allergies Allergy/AdvReac Type Severity Reaction Status Date / Time infliximab [From Remicade] Allergy Dyspnea/HIV Verified 08/20/18 22:44 ES procaine [From Novocain] Allergy Unknown Verified 08/20/18 22:44 propoxyphene HCl Allergy Unknown Verified 08/20/18 22:44 [From Darvon] Physical Exam Vitals: Vital Signs Temp Pulse Pulse Resp BP BP Pulse Ox 08/21/18 11:30 80 08/21/18 11:14 84 08/21/18 07:41 78 08/21/18 07:31 78 08/21/18 07:19 76 99 08/21/18 05:56 98.1 F 82 18 102/49 97 08/21/18 04:43 100 08/21/18 04:23 100 08/21/18 01:56 108 H 08/21/18 01:45 104 H 08/21/18 00:54 99.3 F 107 H 18 102/56 94 L 08/21/18 00:10 101 H 18 111/77 97 08/20/18 23:30 18 113/65 95 08/20/18 22:40 120 H 20 164/117 95 08/20/18 22:22 22 08/20/18 22:10 112 H 20 157/108 95 08/20/18 22:00 21 147/99 93 L 08/20/18 21:56 100.4 F H 126 H 28 H 147/99 98 Intake and Output 08/20/18 08/21/18 08/21/18 22:59 06:59 14:59 Other: Voiding Method Toilet Bedside Commode # Voids 1 Weight 68.946 kg 71.2 kg PHYSICAL EXAMINATION: GENERAL: The patient is alert and oriented x3, not in any acute distress. Well developed, well nourished. HEENT: Pupils are round and equally reacting to light. EOMI. No scleral icterus. No conjunctival pallor. Normocephalic, atraumatic. No pharyngeal erythema. No thyromegaly. CARDIOVASCULAR: S1 and S2 present. No murmurs, rubs, or gallops. PULMONARY: Metadate entry into bilateral lung guzman expiratory wheezing moderate not using accessory muscles of breathing ABDOMEN: Soft, nontender, nondistended, normoactive bowel sounds. No palpable organomegaly. MUSCULOSKELETAL: No joint swelling or deformity. EXTREMITIES: No cyanosis, clubbing, or pedal edema. NEUROLOGICAL: Gross neurological examination did not reveal any focal deficits. SKIN: No rashes. Results CBC & Chem 7: 08/21/18 08:36 08/21/18 08:36 Labs: Abnormal Lab Results - Last 24 Hours (Table) 08/20/18 08/20/18 08/20/18 Range/Units 22:32 22:32 22:32 WBC 11.7 H (3.8-10.6) k/uL RBC 3.79 L (3.80-5.40) m/uL Hgb (11.4-16.0) gm/dL Hct (34.0-46.0) % Plt Count 500 H (150-450) k/uL Eosinophils # 1.0 H (0-0.7) k/uL Sodium 132 L (137-145) mmol/L Potassium 5.2 H (3.5-5.1) mmol/L Chloride 97 L (98-107) mmol/L Creatinine (0.52-1.04) mg/dL Glucose 125 H (74-99) mg/dL POC Glucose (mg/dL) (75-99) mg/dL Total Creatine Kinase <20 L (30-135) U/L Total Protein 6.2 L (6.3-8.2) g/dL Albumin 3.3 L (3.5-5.0) g/dL Urine Appearance (Clear) Urine Blood (Negative) Ur Leukocyte Esterase (Negative) Urine WBC (0-5) /hpf Urine Mucus (None) /hpf 08/21/18 08/21/18 08/21/18 Range/Units 06:33 07:34 08:36 WBC (3.8-10.6) k/uL RBC 3.42 L (3.80-5.40) m/uL Hgb 10.3 L (11.4-16.0) gm/dL Hct 32.9 L (34.0-46.0) % Plt Count (150-450) k/uL Eosinophils # 1.0 H (0-0.7) k/uL Sodium (137-145) mmol/L Potassium (3.5-5.1) mmol/L Chloride (98-107) mmol/L Creatinine (0.52-1.04) mg/dL Glucose (74-99) mg/dL POC Glucose (mg/dL) 117 H (75-99) mg/dL Total Creatine Kinase (30-135) U/L Total Protein (6.3-8.2) g/dL Albumin (3.5-5.0) g/dL Urine Appearance Cloudy H (Clear) Urine Blood Trace H (Negative) Ur Leukocyte Esterase Large H (Negative) Urine WBC 9 H (0-5) /hpf Urine Mucus Rare H (None) /hpf 08/21/18 08/21/18 Range/Units 08:36 11:40 WBC (3.8-10.6) k/uL RBC (3.80-5.40) m/uL Hgb (11.4-16.0) gm/dL Hct (34.0-46.0) % Plt Count (150-450) k/uL Eosinophils # (0-0.7) k/uL Sodium (137-145) mmol/L Potassium (3.5-5.1) mmol/L Chloride (98-107) mmol/L Creatinine 1.17 H (0.52-1.04) mg/dL Glucose 120 H (74-99) mg/dL POC Glucose (mg/dL) 131 H (75-99) mg/dL Total Creatine Kinase (30-135) U/L Total Protein (6.3-8.2) g/dL Albumin (3.5-5.0) g/dL Urine Appearance (Clear) Urine Blood (Negative) Ur Leukocyte Esterase (Negative) Urine WBC (0-5) /hpf Urine Mucus (None) /hpf Thrombosis Risk Factor Assmnt - Choose All That Apply Any of the Below Risk Factors Present?: Yes Each Factor Represents 1 point: Abnormal pulmonary function (COPD), Obesity ( BMI >25), Serious lung disease incl. pneumonia (< 1month) Each Risk Factor Represents 2 Points: Age 61-74 years Other congenital or acquired thrombophilia - If yes, enter type in comment: No Thrombosis Risk Factor Assessment Total Risk Factor Score: 5 Thrombosis Risk Factor Assessment Level: High Risk Assessment and Plan Plan: -Possible sepsis secondary to bilateral lower lobe pneumonia: Zosyn will be continued will obtain sputum cultures and blood cultures -Acute on chronic hypercapnic respiratory failure secondary to COPD exacerbation patient will be started on systemic steroids inhalational treatments, patient has gold stage IV COPD. -Hypertension: Lisinopril will be continued amlodipine will be held because of low normal blood pressures -Hyponatremia mild hypovolemic hyponatremia secondary to diuretic therapy from my Lasix which I do not believe is necessary this will be discontinued -Mild acute renal failure secondary to diuretic therapy which will be held -Depression
--- NOTE | 2018-08-21 16:57 | P.CNPUL ---
History of Present Illness Consult date: 08/21/18 Requesting physician: Molly Canela Reason for consult: dyspnea, cough, COPD, hypoxemia, pneumonia Chief complaint: Dyspnea, cough, phlegm production, fever, chills History of present illness: This is a 63-year-old white female patient follows with Dr. Ohara in the pulmonary office for her history of advanced oxygen-dependent COPD, was recently hospitalized for acute exacerbation of COPD and discharged home on . She was treated with course of antibiotics, IV steroids, bronchodilators, she improved, however started experiencing increased shortness of breath, cough, production of yellow phlegm about a week ago. She tried to call the pulmonary office for an appointment, was leaving messages, but she states nobody got back with her. Over the weekend her breathing became worse, and she presented to the emergency department for further evaluation and treatment on 08/20/2018. Chest x-ray was completed, and showed mild bilateral lower lobe pulmonary infiltrates, could be related to inflammatory disease, no heart failure. She had a low-grade fever on presentation, with a temp of 100.4 F. Lab work was negative for any significant leukocytosis, on admission, WBC was 11.7, hemoglobin is 11.5, sodium is 132, potassium is 5.2, chloride is 97, renal profile was within normal limits. LFT were within normal limits, troponins were negative 1. Urinalysis showed large amount of leukocyte esterase, few WBCs. Influenza screen was negative. Patient was started on IV steroids, Zosyn, she was given a dose of vancomycin in the emergency department. She started to feel better. She is afebrile. Lung sounds are positive for diffuse wheezes. No acute distress. He is baseline FEV1 is 27% of predicted, stage IV COPD. Patient quit smoking in 1999. Patient has had multiple admissions for exacerbations of COPD, and pulmonary infections. She is interested in evaluation for lung transplantation. Review of Systems All systems: negative Constitutional: Denies chills, Denies fever Eyes: denies blurred vision, denies pain Ears, nose, mouth and throat: Denies headache, Denies sore throat Cardiovascular: Reports dyspnea on exertion, Denies chest pain, Denies shortness of breath Respiratory: Reports congestion, Reports cough with sputum, Reports dyspnea, Reports home oxygen, Reports respiratory infections, Reports wheezing, Denies cough Gastrointestinal: Denies abdominal pain, Denies diarrhea, Denies nausea, Denies vomiting Genitourinary: Denies dysuria, Denies hematuria Musculoskeletal: Denies myalgias Integumentary: Denies pruritus, Denies rash Neurological: Denies numbness, Denies weakness Psychiatric: Denies anxiety, Denies depression Endocrine: Denies fatigue, Denies weight change Past Medical History Past Medical History: Cancer, COPD, Hypertension, Pneumonia, Rheumatoid Arthritis (RA) Additional Past Medical History / Comment(s): History of rectal bleed, vulva cancer, UTI, colitis, benign polyps, gout, osteopenia, sinus/seasonal allergies , ca of appendix. History of Any Multi-Drug Resistant Organisms: None Reported Past Surgical History: Appendectomy, Hysterectomy, Joint Replacement Additional Past Surgical History / Comment(s): right knee replacement, surgery to recome vulva cancer, EGD/colonoscopy, lasik eye surgery, right colectomy r/t SBO (wound dehiscence/closure). Past Anesthesia/Blood Transfusion Reactions: No Reported Reaction Additional Past Anesthesia/Blood Transfusion Reaction / Comment(s): Claustrophobia Past Psychological History: Depression Smoking Status: Former smoker Past Alcohol Use History: Daily, Occasional Past Drug Use History: None Reported - Past Family History Father Family Medical History: Cancer Additional Family Medical History / Comment(s): COLON Mother Family Medical History: Cancer Additional Family Medical History / Comment(s): ESOPHAGUS Sister(s) Family Medical History: Cancer Additional Family Medical History / Comment(s): CERVICAL Medications and Allergies Home Medications Medication Instructions Recorded Confirmed Type Benazepril HCl 20 mg PO QAM 01/24/16 08/20/18 History Furosemide [Lasix] 40 mg PO DAILY PRN 05/31/17 08/20/18 History HYDROcodone/APAP 10-325MG [[place] 1 tab PO TID PRN 12/29/17 08/20/18 History 10-325] Budesonide [Pulmicort] 0.5 mg INHALATION RT-BID 04/02/18 08/20/18 History Dextroamphetamine/Amphetamine 15 mg PO QAM 04/02/18 08/20/18 History [Adderall Xr] Formoterol Fumarate [Perforomist] 20 mcg INHALATION RT-BID 04/02/18 08/20/18 History Polyethylene Glycol 3350 [Miralax] 17 gm PO DAILY PRN 04/02/18 08/20/18 History diphenhydrAMINE [Benadryl] 50 mg PO HS 04/02/18 08/20/18 History Montelukast [Singulair] 10 mg PO HS #30 tab 04/12/18 08/20/18 Rx Multivit-Min/FA/Lycopen/Lutein 1 tab PO DAILY 04/19/18 08/20/18 History [Centrum Silver Tablet] guaiFENesin [Mucinex] 600 mg PO Q12HR PRN 04/19/18 08/20/18 History Sodium Chloride 0.65% Nasal [Deep 2 spray NASAL QID PRN spray 04/25/18 Rx Sea (Saline)] Albuterol Sulfate [Proair Hfa] 1 - 2 puff INHALATION RT-Q6H PRN 07/21/18 History Ipratropium-Albuterol Nebulize 3 ml INHALATION RT-QID 07/21/18 08/20/18 History [Duoneb 0.5 mg-3 mg/3 ml Soln] Tetrahydrozoline 0.05% Ophth 1 drop BOTH EYES QID 07/21/18 08/20/18 History [Visine Eye Drops] amLODIPine [Norvasc] 5 mg PO DAILY 07/21/18 08/20/18 History Allergies Allergy/AdvReac Type Severity Reaction Status Date / Time infliximab [From Remicade] Allergy Dyspnea/HIV Verified 08/20/18 22:44 ES procaine [From Novocain] Allergy Unknown Verified 08/20/18 22:44 propoxyphene HCl Allergy Unknown Verified 08/20/18 22:44 [From Darvon] Physical Exam Vitals: Vital Signs Temp Pulse Pulse Resp BP BP Pulse Ox 08/21/18 15:36 96 08/21/18 15:25 94 08/21/18 14:34 97.6 F 96 18 100/53 88 L 08/21/18 11:30 80 08/21/18 11:14 84 08/21/18 07:41 78 08/21/18 07:31 78 08/21/18 07:19 76 99 08/21/18 05:56 98.1 F 82 18 102/49 97 08/21/18 04:43 100 08/21/18 04:23 100 08/21/18 01:56 108 H 08/21/18 01:45 104 H 08/21/18 00:54 99.3 F 107 H 18 102/56 94 L 08/21/18 00:10 101 H 18 111/77 97 08/20/18 23:30 18 113/65 95 08/20/18 22:40 120 H 20 164/117 95 08/20/18 22:22 22 08/20/18 22:10 112 H 20 157/108 95 08/20/18 22:00 21 147/99 93 L 08/20/18 21:56 100.4 F H 126 H 28 H 147/99 98 Intake and Output 08/21/18 08/21/18 08/21/18 06:59 14:59 22:59 Other: Voiding Method Toilet Bedside Commode # Voids 1 4 # Bowel Movements 0 Weight 71.2 kg 71.2 kg GENERAL EXAM: Alert, pleasant, 63-year-old white female, comfortable in no apparent distress. Patient has cushingoid features related to chronic prednisone use HEAD: Normocephalic/atraumatic. EYES: Normal reaction of pupils, equal size. Conjunctiva pink, sclera white. NOSE: Clear with pink turbinates. THROAT: No erythema or exudates. NECK: No masses, no JVD, no thyroid enlargement, no adenopathy. CHEST: No chest wall deformity. Symmetrical expansion. LUNGS: Equal air entry with diffuse wheezes, no rhonchi, no dullness CVS: Regular rate and rhythm, normal S1 and S2, no gallops, no murmurs, no rubs ABDOMEN: Soft, nontender. No hepatosplenomegaly, normal bowel sounds, no guarding or rigidity. EXTREMITIES: No clubbing, no edema, no cyanosis, 2+ pulses and upper and lower extremities. MUSCULOSKELETAL: Muscle strength and tone normal. SPINE: No scoliosis or deformity SKIN: No rashes CENTRAL NERVOUS SYSTEM: Alert and oriented -3. No focal deficits, tone is normal in all 4 extremities. PSYCHIATRIC: Alert and oriented -3. Appropriate affect. Intact judgment and insight. Results - Laboratory Findings CBC and BMP: 08/21/18 08:36 08/21/18 08:36 PT/INR, D-dimer PT 9.5 sec (9.0-12.0) 08/20/18 22:32 INR 1.0 (<1.2) 08/20/18 22:32 Abnormal lab findings: Abnormal Labs 08/20/18 08/20/18 08/20/18 22:32 22:32 22:32 WBC 11.7 H RBC 3.79 L Hgb Hct Plt Count 500 H Eosinophils # 1.0 H Sodium 132 L Potassium 5.2 H Chloride 97 L Creatinine Glucose 125 H POC Glucose (mg/dL) Total Creatine Kinase <20 L Total Protein 6.2 L Albumin 3.3 L Urine Appearance Urine Blood Ur Leukocyte Esterase Urine WBC Urine Mucus 08/21/18 08/21/18 08/21/18 06:33 07:34 08:36 WBC RBC 3.42 L Hgb 10.3 L Hct 32.9 L Plt Count Eosinophils # 1.0 H Sodium Potassium Chloride Creatinine Glucose POC Glucose (mg/dL) 117 H Total Creatine Kinase Total Protein Albumin Urine Appearance Cloudy H Urine Blood Trace H Ur Leukocyte Esterase Large H Urine WBC 9 H Urine Mucus Rare H 08/21/18 08/21/18 08:36 11:40 WBC RBC Hgb Hct Plt Count Eosinophils # Sodium Potassium Chloride Creatinine 1.17 H Glucose 120 H POC Glucose (mg/dL) 131 H Total Creatine Kinase Total Protein Albumin Urine Appearance Urine Blood Ur Leukocyte Esterase Urine WBC Urine Mucus - Diagnostic Findings Chest x-ray: report reviewed, image reviewed Assessment and Plan Plan: Assessment #1. Acute on chronic hypoxemic respiratory failure related to acute COPD exacerbation, and possibility of pneumonia cannot be entirely ruled out. Chest x-ray showed reticular infiltrate in the left lower lobe, could be related to inflammatory disease, or pneumonia. #2. Recurrent hospitalizations for complications related to COPD #3. Severe advanced stage IV COPD with the underlying FEV1 of 27% of predicted #4. Acute on chronic hypercapnic respiratory failure secondary to above #5. Former tobacco dependence, patient quit smoking in 1999 #6. Rheumatoid arthritis #7. Hypertension #8. Depression #9. History of right colectomy for small bowel obstruction with subsequent wound dehiscence and reclosure #10. History of vulvar cancer with resection, hysterectomy Plan: Patient was seen and evaluated by Dr. Goodman, chest x-ray and labs were reviewed, the possibility of pneumonia is less likely, however cannot be entirely ruled out. Patient is afebrile, not significantly congested. There is a minimal infiltrate in the left lower lobe could be related to inflammatory changes, or underlying pneumonia. No hemoptysis. No chest wall tenderness. We 'll continue current antibiotic coverage, was in the sputum culture. Patient is interested in evaluation for lung transplant, this can be further discussed in the office, once the patient is improved. Obtain blood gas, and evaluate if the patient would qualify for a home BiPAP unit I performed a history & physical examination of the patient and discussed their management with my nurse practitioner, Savanah Mart. I reviewed the nurse practitioner's note and agree with the documented findings and plan of care. Lung sounds are positive for some diffuse wheezes. The findings and the impression was discussed with the patient. I attest to the documentation by the nurse practitioner. Time with Patient: Greater than 30
[2018-08-21] MEDS: methylPREDNISolone SOD SUCCI 125 MG/2 ML VIAL IV SCH ×2 (17:55→23:53)
[2018-08-21 17:57] LABS: Glucose,Whole Blood 266 mg/dL (75-99)
[2018-08-21 18:11] LABS: Glucose,Whole Blood 240 mg/dL (75-99)
[2018-08-21] MEDS: MONTELUKAST 10 MG TAB PO SCH (20:14)
[2018-08-21 20:56] LABS: Glucose,Whole Blood 147 mg/dL (75-99)
[2018-08-21] MEDS ORDERED: methylPREDNISolone SOD SUCCI 40 MG/ML 1 ML VIAL IV SCH (21:00)
[2018-08-22] MEDS ORDERED: VANCOMYCIN 1,250 MG in SODIUM CHLORIDE 0.9% 250 ML IVPB SCH ×2
[2018-08-22] MEDS: IPRATROPIUM-ALBUTEROL 3 ML NEB INHALATION SCH ×6 (00:29→19:49)
[2018-08-22] MEDS: HYDROcodone/APAP 10-325MG 1 EACH TAB PO PRN ×2 (03:43→14:55)
[2018-08-22] MEDS: methylPREDNISolone SOD SUCCI 125 MG/2 ML VIAL IV SCH ×4 (06:48→23:49)
[2018-08-22] MEDS: INSULIN ASPART 100 UNIT/ML 1 ML 10 ML VIAL SQ SCH ×4 (07:13→21:14)
[2018-08-22] MEDS: DEXTROAMPHETAMINE PO SCH (07:27)
[2018-08-22] MEDS: AMPHETAMINE PO SCH (07:27)
[2018-08-22 07:35] LABS: Glucose,Whole Blood 140 mg/dL (75-99)
[2018-08-22] MEDS: PIPERACILLIN-TAZOBACTAM 3.375 GM in DEXTROSE/WATER 1 50ML.BAG IVPB SCH ×3 (07:43→23:50)
[2018-08-22] MEDS: HEPARIN SODIUM,PORCINE 5,000 UNIT/ML 1 ML VIAL SQ SCH ×2 (07:43→21:04)
[2018-08-22] MEDS: PANTOPRAZOLE 40 MG/10 ML VIAL IVP SCH (07:43)
[2018-08-22] MEDS: LISINOPRIL 20 MG TAB PO SCH (07:43)
[2018-08-22] MEDS: TETRAHYDROZOLINE 0.05% OPHTH DROPS 15 ML BTL BOTH EYES SCH ×4 (07:45→21:13)
[2018-08-22] MEDS: FORMOTEROL FUMARATE 20 MCG/2 ML NEBU INHALATION SCH ×2 (09:13→19:49)
[2018-08-22] MEDS: BUDESONIDE 0.5 MG/2 ML NEBU INHALATION SCH ×2 (09:13→19:49)
[2018-08-22 12:21] LABS: Glucose,Whole Blood 173 mg/dL (75-99)
[2018-08-22] MEDS: guaiFENesin 600 MG TABLET.ER PO PRN (13:50)
[2018-08-22] MEDS: MULTIVITAMINS, THERA 1 EACH TAB PO SCH (13:50)
[2018-08-22] MEDS: SODIUM CHLORIDE 0.9% 1,000 ML IV SCH (13:51)
--- NOTE | 2018-08-22 14:56 | P.PN ---
Subjective Progress Note Date: 08/22/18 This is a 63-year-old white female patient follows with Dr. Ohara in the pulmonary office for her history of advanced oxygen-dependent COPD, was recently hospitalized for acute exacerbation of COPD and discharged home on . She was treated with course of antibiotics, IV steroids, bronchodilators, she improved, however started experiencing increased shortness of breath, cough, production of yellow phlegm about a week ago. She tried to call the pulmonary office for an appointment, was leaving messages, but she states nobody got back with her. Over the weekend her breathing became worse, and she presented to the emergency department for further evaluation and treatment on 08/20/2018. Chest x-ray was completed, and showed mild bilateral lower lobe pulmonary infiltrates, could be related to inflammatory disease, no heart failure. She had a low-grade fever on presentation, with a temp of 100.4 F. Lab work was negative for any significant leukocytosis, on admission, WBC was 11.7, hemoglobin is 11.5, sodium is 132, potassium is 5.2, chloride is 97, renal profile was within normal limits. LFT were within normal limits, troponins were negative 1. Urinalysis showed large amount of leukocyte esterase, few WBCs. Influenza screen was negative. Patient was started on IV steroids, Zosyn, she was given a dose of vancomycin in the emergency department. She started to feel better. She is afebrile. Lung sounds are positive for diffuse wheezes. No acute distress. He is baseline FEV1 is 27% of predicted, stage IV COPD. Patient quit smoking in 1999. Patient has had multiple admissions for exacerbations of COPD, and pulmonary infections. She is interested in evaluation for lung transplantation. On today's evaluation of 08/22/2018, I'm seeing this patient for a follow-up. Slightly less short of breath compared to yesterday. She seems to be gradually improving. She is getting frustrated about her condition knowing that she is bouncing back and forth regarding COPD exacerbation. She is not smoking cigarettes. I explored the possibility of putting this patient on noninvasive positive pressure ventilation however the patient did not show any interest. I ordered a blood gas however she declined to have it done. She is interested in lung transplantation and this may be an option for her. Age may be a limiting factor however it's reasonable to pursue this option at a later stage once the patient is discharged from the hospital. No nausea. No vomiting. No abdominal pain. No chest pain. No major swelling lower extremities. No fever. She is on Zosyn. He is on bronchodilators. She is on IV Solu-Medrol. Objective - Vital Signs Vital signs: Vital Signs Temp 97.2 F L 08/22/18 07:35 Pulse 96 08/22/18 13:00 Resp 20 08/22/18 08:00 BP 124/61 08/22/18 07:35 Pulse Ox 94 L 08/22/18 07:35 Intake & Output 08/21/18 08/22/18 08/22/18 18:59 06:59 18:59 Intake Total 1100 540 Balance 1100 540 Weight 71.2 kg Intake: Oral 1100 540 Other: # Voids 4 1 # Bowel Movements 0 0 - Exam Gen. appearance, comfortable likely distress. The patient has some cushingoid features. Head exam was generally normal. There was no scleral icterus or corneal arcus. Mucous membranes were moist. Neck was supple and without jugular venous distension, thyromegaly, or carotid bruits. Carotids were easily palpable bilaterally. There was no adenopathy. Lungs sounds are diminished bilaterally along with scattered expiratory wheezes and prolongation of the expiratory phase of breathing. Cardiac exam revealed the PMI to be normally situated and sized. The rhythm was regular and no extrasystoles were noted during several minutes of auscultation. The first and second heart sounds were normal and physiologic splitting of the second heart sound was noted. There were no murmurs, rubs, clicks, or gallops. Abdominal exam revealed normal bowel sounds. The abdomen was soft, non-tender, and without masses, organomegaly, or appreciable enlargement of the abdominal aorta. Examination of the extremities revealed easily palpable radial, femoral and pedal pulses. There was no cyanosis, clubbing or edema. Examination of the skin revealed no evidence of significant rashes, suspicious appearing nevi or other concerning lesions. Neurologically the patient is awake and alert and there is no focal neurological deficits. - Labs CBC & Chem 7: 08/21/18 08:36 08/21/18 08:36 Labs: Abnormal Lab Results - Last 24 Hours (Table) 08/21/18 08/21/18 08/21/18 Range/Units 17:45 17:51 20:49 POC Glucose (mg/dL) 266 H 240 H 147 H (75-99) mg/dL 08/22/18 08/22/18 Range/Units 07:33 12:20 POC Glucose (mg/dL) 140 H 173 H (75-99) mg/dL Microbiology - Last 24 Hours (Table) 08/20/18 22:32 Blood Culture - Preliminary Blood No Growth after 24 hours 08/21/18 06:33 Urine Culture - Preliminary Urine,Voided Assessment and Plan Plan: #1. Acute on chronic hypoxemic respiratory failure related to acute COPD exacerbation, and possibility of pneumonia cannot be entirely ruled out. Chest x-ray showed reticular infiltrate in the left lower lobe, could be related to inflammatory disease, or pneumonia. #2. Recurrent hospitalizations for complications related to COPD #3. Severe advanced stage IV COPD with the underlying FEV1 of 27% of predicted , with chronic hypoxic respiratory failure #4. Acute on chronic hypercapnic respiratory failure secondary to above #5. Former tobacco dependence, patient quit smoking in 1999 #6. Rheumatoid arthritis #7. Hypertension #8. Depression #9. History of right colectomy for small bowel obstruction with subsequent wound dehiscence and reclosure #10. History of vulvar cancer with resection, hysterectomy Plan The patient is feeling improved. She is less short of breath compared to yesterday. The main issue will be how to keep this patient out of the hospital. Suggested doing a blood gases and assess the patient's candidacy for a noninvasive positive pressure ventilation however she declined this option. She is more interested in this option of lung transportation which will require extensive workup and evaluation that needs to be done outpatient basis. For now we'll continue the current treatment, stabilized was status and this was patient home. I think her outpatient medications are quite reasonable as maintenance for COPD. She is to be very compliant to this medication. We'll continue to follow.
[2018-08-22 17:14] LABS: Glucose,Whole Blood 192 mg/dL (75-99)
[2018-08-22] MEDS: MONTELUKAST 10 MG TAB PO SCH (21:02)
[2018-08-22] MEDS: MELATONIN 3 MG TABLET PO SCH (21:02)
[2018-08-22 21:10] LABS: Glucose,Whole Blood 128 mg/dL (75-99)
[2018-08-22] MEDS: SODIUM CHLORIDE 0.65% NASAL SPRAY 44 ML BTL NASAL PRN (22:18)
--- NOTE | 2018-08-22 23:32 | P.PN ---
Subjective Progress Note Date: 08/22/18 Principal diagnosis: Acute COPD exacerbation 63-year-old female with past medical history as documented who presents the ED today via EMS for evaluation of shortness of breath. Patient reports she's had progressively worsening shortness of breath, minimally productive cough, subjective fevers, chills and generalized fatigue. Patient reports that he symptoms of progressively worsened throughout the day despite trying to rest. She denies any exertional chest pain or palpitations. Comparing of cough with mild sputum production. Patient is found to have bilateral lower lobe infiltrates significant on the right side considering her fever and leukocytosis patient was started on antibiotic for pneumonia healthcare associated pneumonia vancomycin and Zosyn vancomycin was discontinued patient does use 3 L of oxygen at home does have end-stage COPD patient is presently on 3 L. Patient does have significant wheezing on exam will be started on prednisone 40 mg daily along with inhalational treatments pulmonary was consulted from ER 08/22/2018 Patient is still having diffuse wheezing and shortness of breath. Blood cultures negative. Urine culture is negative as well. No leukocytosis. Patient most likely has acute COPD exacerbation and pneumonia is less likely. Continue the IV steroids and breathing treatments and antibiotics. Pulmonary is on board. Otherwise no acute overnight issues. No nausea vomiting or abdominal pain. No diarrhea. Current medications reviewed Objective - Vital Signs Vital signs: Vital Signs Temp 97.2 F L 08/22/18 07:35 Pulse 100 08/22/18 09:36 Resp 20 08/22/18 08:00 BP 124/61 08/22/18 07:35 Pulse Ox 94 L 08/22/18 07:35 Intake & Output 08/21/18 08/22/18 08/22/18 18:59 06:59 18:59 Intake Total 1100 300 Balance 1100 300 Weight 71.2 kg Intake: Oral 1100 300 Other: # Voids 4 1 # Bowel Movements 0 0 - Exam PHYSICAL EXAMINATION: GENERAL: The patient is alert and oriented x3, not in any acute distress. Well developed, well nourished. HEENT: Pupils are round and equally reacting to light. EOMI. No scleral icterus. No conjunctival pallor. Normocephalic, atraumatic. No pharyngeal erythema. No thyromegaly. CARDIOVASCULAR: S1 and S2 present. No murmurs, rubs, or gallops. PULMONARY: Metadate entry into bilateral lung guzman expiratory wheezing moderate not using accessory muscles of breathing ABDOMEN: Soft, nontender, nondistended, normoactive bowel sounds. No palpable organomegaly. MUSCULOSKELETAL: No joint swelling or deformity. EXTREMITIES: No cyanosis, clubbing, or pedal edema. NEUROLOGICAL: Gross neurological examination did not reveal any focal deficits. SKIN: No rashes. - Labs CBC & Chem 7: 08/21/18 08:36 08/21/18 08:36 Labs: Abnormal Lab Results - Last 24 Hours (Table) 08/21/18 08/21/18 08/21/18 Range/Units 17:45 17:51 20:49 POC Glucose (mg/dL) 266 H 240 H 147 H (75-99) mg/dL 08/22/18 08/22/18 Range/Units 07:33 12:20 POC Glucose (mg/dL) 140 H 173 H (75-99) mg/dL Microbiology - Last 24 Hours (Table) 08/20/18 22:32 Blood Culture - Preliminary Blood No Growth after 24 hours 08/21/18 06:33 Urine Culture - Preliminary Urine,Voided Assessment and Plan Assessment: -Acute on chronic hypercapnic respiratory failure secondary to COPD exacerbation patient will be started on systemic steroids inhalational treatments, patient has gold stage IV COPD. -Possible sepsis secondary to bilateral lower lobe pneumonia: Zosyn will be continued . Negative blood cultures -Hypertension: Lisinopril will be continued amlodipine will be held because of low normal blood pressures -Hyponatremia mild hypovolemic hyponatremia secondary to diuretic therapy from my Lasix which I do not believe is necessary this will be discontinued -Mild acute renal failure secondary to diuretic therapy which will be held -Depression Time with Patient: Greater than 30
[2018-08-23] MEDS: IPRATROPIUM-ALBUTEROL 3 ML NEB INHALATION SCH ×7 (00:16→23:30)
[2018-08-23] MEDS: HYDROcodone/APAP 10-325MG 1 EACH TAB PO PRN ×3 (02:40→19:28)
[2018-08-23] MEDS: methylPREDNISolone SOD SUCCI 125 MG/2 ML VIAL IV SCH ×4 (06:07→23:53)
[2018-08-23] MEDS: guaiFENesin 600 MG TABLET.ER PO PRN (06:33)
[2018-08-23 07:12] LABS: Glucose,Whole Blood 205 mg/dL (75-99)
[2018-08-23] MEDS: BUDESONIDE 0.5 MG/2 ML NEBU INHALATION SCH ×2 (07:43→19:26)
[2018-08-23] MEDS: FORMOTEROL FUMARATE 20 MCG/2 ML NEBU INHALATION SCH ×2 (07:43→19:26)
[2018-08-23] MEDS: AMPHETAMINE PO SCH (08:09)
[2018-08-23] MEDS: DEXTROAMPHETAMINE PO SCH (08:09)
[2018-08-23] MEDS: PIPERACILLIN-TAZOBACTAM 3.375 GM in DEXTROSE/WATER 1 50ML.BAG IVPB SCH ×3 (09:08→23:53)
[2018-08-23] MEDS: INSULIN ASPART 100 UNIT/ML 1 ML 10 ML VIAL SQ SCH ×4 (09:08→21:47)
[2018-08-23] MEDS: LISINOPRIL 20 MG TAB PO SCH (09:09)
[2018-08-23] MEDS: HEPARIN SODIUM,PORCINE 5,000 UNIT/ML 1 ML VIAL SQ SCH ×2 (09:09→21:48)
[2018-08-23] MEDS: TETRAHYDROZOLINE 0.05% OPHTH DROPS 15 ML BTL BOTH EYES SCH ×4 (09:09→23:02)
[2018-08-23] MEDS: PANTOPRAZOLE 40 MG/10 ML VIAL IVP SCH (09:09)
--- NOTE | 2018-08-23 09:35 | XR ---
EXAMINATION TYPE: XR chest 1V portable DATE OF EXAM: 08/23/2018 COMPARISON: 08/20/2018 INDICATION: Pneumonia TECHNIQUE: Single frontal view of the chest is obtained. FINDINGS: The heart size is normal. The pulmonary vasculature is normal. Small amount of infiltrate is at the right base. Correlate for atelectasis. This is developing from c omparison. IMPRESSION: 1. Clinical correlation recommended for right lower lobe atelectasis. Continued follow-up is recommen ded.
[2018-08-23] MEDS: MULTIVITAMINS, THERA 1 EACH TAB PO SCH (11:18)
[2018-08-23 11:25] LABS: Glucose,Whole Blood 145 mg/dL (75-99)
[2018-08-23] MEDS: SODIUM CHLORIDE 0.9% 1,000 ML IV SCH (12:11)
--- NOTE | 2018-08-23 16:46 | P.PN ---
Subjective Progress Note Date: 08/23/18 Principal diagnosis: Acute on chronic hypoxic respiratory failure related to acute COPD exacerbation This is a 63-year-old white female patient follows with Dr. Ohara in the pulmonary office for her history of advanced oxygen-dependent COPD, was recently hospitalized for acute exacerbation of COPD and discharged home on . She was treated with course of antibiotics, IV steroids, bronchodilators, she improved, however started experiencing increased shortness of breath, cough, production of yellow phlegm about a week ago. She tried to call the pulmonary office for an appointment, was leaving messages, but she states nobody got back with her. Over the weekend her breathing became worse, and she presented to the emergency department for further evaluation and treatment on 08/20/2018. Chest x-ray was completed, and showed mild bilateral lower lobe pulmonary infiltrates, could be related to inflammatory disease, no heart failure. She had a low-grade fever on presentation, with a temp of 100.4 F. Lab work was negative for any significant leukocytosis, on admission, WBC was 11.7, hemoglobin is 11.5, sodium is 132, potassium is 5.2, chloride is 97, renal profile was within normal limits. LFT were within normal limits, troponins were negative 1. Urinalysis showed large amount of leukocyte esterase, few WBCs. Influenza screen was negative. Patient was started on IV steroids, Zosyn, she was given a dose of vancomycin in the emergency department. She started to feel better. She is afebrile. Lung sounds are positive for diffuse wheezes. No acute distress. He is baseline FEV1 is 27% of predicted, stage IV COPD. Patient quit smoking in 1999. Patient has had multiple admissions for exacerbations of COPD, and pulmonary infections. She is interested in evaluation for lung transplantation. On today's evaluation of 08/22/2018, I'm seeing this patient for a follow-up. Slightly less short of breath compared to yesterday. She seems to be gradually improving. She is getting frustrated about her condition knowing that she is bouncing back and forth regarding COPD exacerbation. She is not smoking cigarettes. I explored the possibility of putting this patient on noninvasive positive pressure ventilation however the patient did not show any interest. I ordered a blood gas however she declined to have it done. She is interested in lung transplantation and this may be an option for her. Age may be a limiting factor however it's reasonable to pursue this option at a later stage once the patient is discharged from the hospital. No nausea. No vomiting. No abdominal pain. No chest pain. No major swelling lower extremities. No fever. She is on Zosyn. He is on bronchodilators. She is on IV Solu-Medrol. On 08/23/2018 patient seen in follow-up on medical surgical floor. Continues to improve. Lung sounds are diminished, patient has occasional cough with production of light yellow phlegm. Overall feeling better, breathing easier. History of patient refused a blood gas, this was done in an attempt to qualify the patient for home NPPV unit. She stated she cannot tolerate BiPAP or CPAP anyway, and therefore she declined a blood gas. Fever or chills, currently on 3 L per nasal cannula, her pulse ox of 99%. Patient has been ambulating in the hallway, tolerating activity well. Her chest x-ray was reviewed and showed a right lower lobe atelectasis, limited infiltration at the right lung base. The nuclear patient denies any worsening shortness of breath, no chest wall tenderness, no significant chest congestion. No Fever or chills. Patient is on empiric antibiotics in the form of Zosyn, denies bronchodilators, and IV steroids, she is improving. Blood culture showed coagulase-negative staph, urine culture was negative. Unable to obtain a sputum culture. Objective - Vital Signs Vital signs: Vital Signs Temp 98.4 F 08/23/18 14:13 Pulse 88 08/23/18 16:14 Resp 18 08/23/18 16:14 BP 148/68 08/23/18 14:13 Pulse Ox 99 08/23/18 14:13 Intake & Output 08/22/18 08/23/18 08/23/18 18:59 06:59 18:59 Intake Total 540 600 Balance 540 600 Weight 71.2 kg Intake: Oral 540 600 Other: Voiding Method Toilet # Voids 3 2 4 # Bowel Movements 0 - Exam Gen. appearance, comfortable likely distress. The patient has some cushingoid features. Head exam was generally normal. There was no scleral icterus or corneal arcus. Mucous membranes were moist. Neck was supple and without jugular venous distension, thyromegaly, or carotid bruits. Carotids were easily palpable bilaterally. There was no adenopathy. Lungs sounds are diminished bilaterallyprolongation of the expiratory phase of breathing. Overall improving Cardiac exam revealed the PMI to be normally situated and sized. The rhythm was regular and no extrasystoles were noted during several minutes of auscultation. The first and second heart sounds were normal and physiologic splitting of the second heart sound was noted. There were no murmurs, rubs, clicks, or gallops. Abdominal exam revealed normal bowel sounds. The abdomen was soft, non-tender, and without masses, organomegaly, or appreciable enlargement of the abdominal aorta. Examination of the extremities revealed easily palpable radial, femoral and pedal pulses. There was no cyanosis, clubbing or edema. Examination of the skin revealed no evidence of significant rashes, suspicious appearing nevi or other concerning lesions. Neurologically the patient is awake and alert and there is no focal neurological deficits. - Labs CBC & Chem 7: 08/21/18 08:36 08/21/18 08:36 Labs: Abnormal Lab Results - Last 24 Hours (Table) 08/22/18 08/22/18 08/23/18 Range/Units 17:02 21:06 07:04 POC Glucose (mg/dL) 192 H 128 H 205 H (75-99) mg/dL 08/23/18 Range/Units 11:23 POC Glucose (mg/dL) 145 H (75-99) mg/dL Microbiology - Last 24 Hours (Table) 08/20/18 22:32 Blood Culture Gram Stain - Preliminary Blood Blood Culture - Preliminary Coagulase Negative Staph 08/20/18 22:32 Blood Culture - Final Blood 08/21/18 06:33 Urine Culture - Final Urine,Voided Assessment and Plan Plan: Assessment #1. Acute on chronic hypoxemic respiratory failure related to acute COPD exacerbation, and possibility of pneumonia cannot be entirely ruled out. Chest x-ray showed reticular infiltrate in the left lower lobe, could be related to inflammatory disease, or pneumonia. #2. Recurrent hospitalizations for complications related to COPD #3. Severe advanced stage IV COPD with the underlying FEV1 of 27% of predicted #4. Acute on chronic hypercapnic respiratory failure secondary to above #5. Former tobacco dependence, patient quit smoking in 1999 #6. Rheumatoid arthritis #7. Hypertension #8. Depression #9. History of right colectomy for small bowel obstruction with subsequent wound dehiscence and reclosure #10. History of vulvar cancer with resection, hysterectomy Plan: Patient is improving, less dyspneic, less bronchospastic, she is tolerating ambulation, no fever or chills. X-ray has been reviewed, still some limited infiltration at the right lung base, atelectasis. Continue with current abiotic coverage, continue current dose of IV steroids, and nebulized bronchodilators. Increase activity as tolerated. She could be discharged home in the next 24 hours provided she continues to improve. I performed a history & physical examination of the patient and discussed their management with my nurse practitioner, Savanah Mart. I reviewed the nurse practitioner's note and agree with the documented findings and plan of care. Lung sounds are positive for some diffuse wheezes. The findings and the impression was discussed with the patient. I attest to the documentation by the nurse practitioner. Time with Patient: Less than 30
[2018-08-23 17:09] LABS: Glucose,Whole Blood 161 mg/dL (75-99)
[2018-08-23 20:50] LABS: Glucose,Whole Blood 213 mg/dL (75-99)
[2018-08-23] MEDS: MONTELUKAST 10 MG TAB PO SCH (21:47)
[2018-08-23] MEDS: MELATONIN 3 MG TABLET PO SCH (21:47)
[2018-08-23] MEDS: SODIUM CHLORIDE 0.65% NASAL SPRAY 44 ML BTL NASAL PRN (21:48)
[2018-08-24] MEDS: IPRATROPIUM-ALBUTEROL 3 ML NEB INHALATION SCH ×6 (03:46→23:14)
[2018-08-24] MEDS: methylPREDNISolone SOD SUCCI 125 MG/2 ML VIAL IV SCH ×4 (06:17→23:19)
[2018-08-24 07:23] LABS: Glucose,Whole Blood 127 mg/dL (75-99)
[2018-08-24] MEDS: BUDESONIDE 0.5 MG/2 ML NEBU INHALATION SCH ×2 (07:28→19:09)
[2018-08-24] MEDS: FORMOTEROL FUMARATE 20 MCG/2 ML NEBU INHALATION SCH ×2 (07:28→19:09)
[2018-08-24] MEDS: INSULIN ASPART 100 UNIT/ML 1 ML 10 ML VIAL SQ SCH ×4 (07:31→21:06)
[2018-08-24] MEDS: TETRAHYDROZOLINE 0.05% OPHTH DROPS 15 ML BTL BOTH EYES SCH ×4 (07:32→21:10)
[2018-08-24] MEDS: AMPHETAMINE PO SCH (07:32)
[2018-08-24] MEDS: DEXTROAMPHETAMINE PO SCH (07:32)
[2018-08-24] MEDS: LISINOPRIL 20 MG TAB PO SCH (07:35)
[2018-08-24] MEDS: HEPARIN SODIUM,PORCINE 5,000 UNIT/ML 1 ML VIAL SQ SCH ×2 (07:35→21:06)
[2018-08-24] MEDS: PIPERACILLIN-TAZOBACTAM 3.375 GM in DEXTROSE/WATER 1 50ML.BAG IVPB SCH ×3 (07:35→23:19)
[2018-08-24] MEDS: PANTOPRAZOLE 40 MG/10 ML VIAL IVP SCH (07:35)
[2018-08-24] MEDS: HYDROcodone/APAP 10-325MG 1 EACH TAB PO PRN ×3 (07:36→23:18)
[2018-08-24] MEDS: guaiFENesin 600 MG TABLET.ER PO PRN ×2 (07:42→21:35)
[2018-08-24 11:28] LABS: Glucose,Whole Blood 161 mg/dL (75-99)
[2018-08-24] MEDS: MULTIVITAMINS, THERA 1 EACH TAB PO SCH (12:01)
[2018-08-24] MEDS: SODIUM CHLORIDE 0.9% 1,000 ML IV SCH (12:01)
--- NOTE | 2018-08-24 15:05 | P.PN ---
Subjective Progress Note Date: 08/24/18 Principal diagnosis: Acute on chronic hypoxic respiratory failure secondary to acute exacerbation of COPD. This is a 63-year-old white female patient follows with Dr. Ohara in the pulmonary office for her history of advanced oxygen-dependent COPD, was recently hospitalized for acute exacerbation of COPD and discharged home on . She was treated with course of antibiotics, IV steroids, bronchodilators, she improved, however started experiencing increased shortness of breath, cough, production of yellow phlegm about a week ago. She tried to call the pulmonary office for an appointment, was leaving messages, but she states nobody got back with her. Over the weekend her breathing became worse, and she presented to the emergency department for further evaluation and treatment on 08/20/2018. Chest x-ray was completed, and showed mild bilateral lower lobe pulmonary infiltrates, could be related to inflammatory disease, no heart failure. She had a low-grade fever on presentation, with a temp of 100.4 F. Lab work was negative for any significant leukocytosis, on admission, WBC was 11.7, hemoglobin is 11.5, sodium is 132, potassium is 5.2, chloride is 97, renal profile was within normal limits. LFT were within normal limits, troponins were negative 1. Urinalysis showed large amount of leukocyte esterase, few WBCs. Influenza screen was negative. Patient was started on IV steroids, Zosyn, she was given a dose of vancomycin in the emergency department. She started to feel better. She is afebrile. Lung sounds are positive for diffuse wheezes. No acute distress. He is baseline FEV1 is 27% of predicted, stage IV COPD. Patient quit smoking in 1999. Patient has had multiple admissions for exacerbations of COPD, and pulmonary infections. She is interested in evaluation for lung transplantation. On today's evaluation of 08/22/2018, I'm seeing this patient for a follow-up. Slightly less short of breath compared to yesterday. She seems to be gradually improving. She is getting frustrated about her condition knowing that she is bouncing back and forth regarding COPD exacerbation. She is not smoking cigarettes. I explored the possibility of putting this patient on noninvasive positive pressure ventilation however the patient did not show any interest. I ordered a blood gas however she declined to have it done. She is interested in lung transplantation and this may be an option for her. Age may be a limiting factor however it's reasonable to pursue this option at a later stage once the patient is discharged from the hospital. No nausea. No vomiting. No abdominal pain. No chest pain. No major swelling lower extremities. No fever. She is on Zosyn. He is on bronchodilators. She is on IV Solu-Medrol. On 08/23/2018 patient seen in follow-up on medical surgical floor. Continues to improve. Lung sounds are diminished, patient has occasional cough with production of light yellow phlegm. Overall feeling better, breathing easier. History of patient refused a blood gas, this was done in an attempt to qualify the patient for home NPPV unit. She stated she cannot tolerate BiPAP or CPAP anyway, and therefore she declined a blood gas. Fever or chills, currently on 3 L per nasal cannula, her pulse ox of 99%. Patient has been ambulating in the hallway, tolerating activity well. Her chest x-ray was reviewed and showed a right lower lobe atelectasis, limited infiltration at the right lung base. The nuclear patient denies any worsening shortness of breath, no chest wall tenderness, no significant chest congestion. No Fever or chills. Patient is on empiric antibiotics in the form of Zosyn, denies bronchodilators, and IV steroids, she is improving. Blood culture showed coagulase-negative staph, urine culture was negative. Unable to obtain a sputum culture. The patient is seen again today 08/24/2018 in follow-up on the regular medical floor. She is currently sitting up in a chair at the bedside. She is awake and alert in no acute distress. She states she is still not back to her baseline. She is maintaining good O2 saturations in the upper 90s on 2 L/m per nasal cannula. She's been afebrile. Hemodynamically stable. Blood and urine cultures reveal no growth. Objective - Vital Signs Vital signs: Vital Signs Temp 96.6 F L 08/24/18 06:24 Pulse 90 08/24/18 11:30 Resp 18 08/24/18 06:24 BP 160/76 08/24/18 06:24 Pulse Ox 98 08/24/18 06:24 Intake & Output 08/23/18 08/24/18 08/24/18 18:59 06:59 18:59 Other: Voiding Method Toilet # Voids 4 2 - Exam - Exam Gen. appearance, comfortable likely distress. The patient has some cushingoid features. Head exam was generally normal. There was no scleral icterus or corneal arcus. Mucous membranes were moist. Neck was supple and without jugular venous distension, thyromegaly, or carotid bruits. Carotids were easily palpable bilaterally. There was no adenopathy. Lungs sounds are diminished bilaterallyprolongation of the expiratory phase of breathing. Overall improving Cardiac exam revealed the PMI to be normally situated and sized. The rhythm was regular and no extrasystoles were noted during several minutes of auscultation. The first and second heart sounds were normal and physiologic splitting of the second heart sound was noted. There were no murmurs, rubs, clicks, or gallops. Abdominal exam revealed normal bowel sounds. The abdomen was soft, non-tender, and without masses, organomegaly, or appreciable enlargement of the abdominal aorta. Examination of the extremities revealed easily palpable radial, femoral and pedal pulses. There was no cyanosis, clubbing or edema. Examination of the skin revealed no evidence of significant rashes, suspicious appearing nevi or other concerning lesions. Neurologically the patient is awake and alert and there is no focal neurological deficits. - Labs CBC & Chem 7: 08/21/18 08:36 08/21/18 08:36 Labs: Abnormal Lab Results - Last 24 Hours (Table) 08/23/18 08/23/18 08/24/18 Range/Units 16:50 20:49 07:21 POC Glucose (mg/dL) 161 H 213 H 127 H (75-99) mg/dL 08/24/18 Range/Units 11:26 POC Glucose (mg/dL) 161 H (75-99) mg/dL Microbiology - Last 24 Hours (Table) 08/20/18 22:32 Blood Culture Gram Stain - Final Blood Blood Culture - Final Staph hominis sub sp. hominis Assessment and Plan Assessment: Assessment #1. Acute on chronic hypoxemic respiratory failure related to acute COPD exacerbation, and possibility of pneumonia cannot be entirely ruled out. Chest x-ray showed reticular infiltrate in the left lower lobe, could be related to inflammatory disease, or pneumonia. #2. Recurrent hospitalizations for complications related to COPD #3. Severe advanced stage IV COPD with the underlying FEV1 of 27% of predicted #4. Acute on chronic hypercapnic respiratory failure secondary to above #5. Former tobacco dependence, patient quit smoking in 1999 #6. Rheumatoid arthritis #7. Hypertension #8. Depression #9. History of right colectomy for small bowel obstruction with subsequent wound dehiscence and reclosure #10. History of vulvar cancer with resection, hysterectomy Plan: The patient was seen and evaluated by Dr. Goodman. She is improving but slow to get back to her baseline. We'll continue with her current medications. We' ll increase her activity as tolerated. We'll continue to follow and make further recommendations based on her clinical status. I, the cosigning physician, performed a history & physical examination of the patient. Lungs sounds with bilateral end expiratory wheeze. Maintaining good O2 saturations in the 90s on 2 L/m per nasal cannula. I discussed the assessment and plan of care with my nurse practitioner, Symone Ohara. I attest to the above note as dictated by her.
[2018-08-24 16:34] LABS: Glucose,Whole Blood 201 mg/dL (75-99)
[2018-08-24 20:37] LABS: Glucose,Whole Blood 132 mg/dL (75-99)
[2018-08-24] MEDS: MELATONIN 5 MG TABLET PO SCH (21:06)
[2018-08-24] MEDS: MONTELUKAST 10 MG TAB PO SCH (21:06)
[2018-08-25] MEDS: IPRATROPIUM-ALBUTEROL 3 ML NEB INHALATION SCH ×6 (03:12→23:54)
[2018-08-25] MEDS: methylPREDNISolone SOD SUCCI 125 MG/2 ML VIAL IV SCH ×2 (06:01→12:31)
[2018-08-25 07:06] LABS: Glucose,Whole Blood 142 mg/dL (75-99)
[2018-08-25] MEDS: FORMOTEROL FUMARATE 20 MCG/2 ML NEBU INHALATION SCH ×2 (07:20→18:41)
[2018-08-25] MEDS: BUDESONIDE 0.5 MG/2 ML NEBU INHALATION SCH ×2 (07:20→18:41)
[2018-08-25] MEDS: DEXTROAMPHETAMINE PO SCH (07:45)
[2018-08-25] MEDS: AMPHETAMINE PO SCH (07:45)
[2018-08-25] MEDS: TETRAHYDROZOLINE 0.05% OPHTH DROPS 15 ML BTL BOTH EYES SCH ×4 (08:51→21:41)
[2018-08-25] MEDS: INSULIN ASPART 100 UNIT/ML 1 ML 10 ML VIAL SQ SCH ×4 (08:52→21:41)
[2018-08-25] MEDS: PANTOPRAZOLE 40 MG TABLET PO SCH (08:52)
[2018-08-25] MEDS: HEPARIN SODIUM,PORCINE 5,000 UNIT/ML 1 ML VIAL SQ SCH ×2 (08:53→21:38)
[2018-08-25] MEDS: PIPERACILLIN-TAZOBACTAM 3.375 GM in DEXTROSE/WATER 1 50ML.BAG IVPB SCH ×2 (08:53→16:40)
[2018-08-25] MEDS: guaiFENesin 600 MG TABLET.ER PO PRN ×2 (08:53→21:38)
[2018-08-25] MEDS: LISINOPRIL 20 MG TAB PO SCH (08:53)
[2018-08-25] MEDS: HYDROcodone/APAP 10-325MG 1 EACH TAB PO PRN (10:45)
[2018-08-25 12:20] LABS: Glucose,Whole Blood 116 mg/dL (75-99)
[2018-08-25] MEDS: MULTIVITAMINS, THERA 1 EACH TAB PO SCH (12:28)
[2018-08-25] MEDS: ALPRAZolam 0.5 MG TAB PO PRN (12:28)
[2018-08-25] MEDS: SODIUM CHLORIDE 0.9% 1,000 ML IV SCH (14:33)
[2018-08-25] MEDS: predniSONE 10 MG TAB PO SCH (14:33)
--- NOTE | 2018-08-25 15:24 | P.PN ---
Subjective Progress Note Date: 08/25/18 This is a 63-year-old white female patient follows with Dr. Ohara in the pulmonary office for her history of advanced oxygen-dependent COPD, was recently hospitalized for acute exacerbation of COPD and discharged home on . She was treated with course of antibiotics, IV steroids, bronchodilators, she improved, however started experiencing increased shortness of breath, cough, production of yellow phlegm about a week ago. She tried to call the pulmonary office for an appointment, was leaving messages, but she states nobody got back with her. Over the weekend her breathing became worse, and she presented to the emergency department for further evaluation and treatment on 08/20/2018. Chest x-ray was completed, and showed mild bilateral lower lobe pulmonary infiltrates, could be related to inflammatory disease, no heart failure. She had a low-grade fever on presentation, with a temp of 100.4 F. Lab work was negative for any significant leukocytosis, on admission, WBC was 11.7, hemoglobin is 11.5, sodium is 132, potassium is 5.2, chloride is 97, renal profile was within normal limits. LFT were within normal limits, troponins were negative 1. Urinalysis showed large amount of leukocyte esterase, few WBCs. Influenza screen was negative. Patient was started on IV steroids, Zosyn, she was given a dose of vancomycin in the emergency department. She started to feel better. She is afebrile. Lung sounds are positive for diffuse wheezes. No acute distress. He is baseline FEV1 is 27% of predicted, stage IV COPD. Patient quit smoking in 1999. Patient has had multiple admissions for exacerbations of COPD, and pulmonary infections. She is interested in evaluation for lung transplantation. On today's evaluation of 08/22/2018, I'm seeing this patient for a follow-up. Slightly less short of breath compared to yesterday. She seems to be gradually improving. She is getting frustrated about her condition knowing that she is bouncing back and forth regarding COPD exacerbation. She is not smoking cigarettes. I explored the possibility of putting this patient on noninvasive positive pressure ventilation however the patient did not show any interest. I ordered a blood gas however she declined to have it done. She is interested in lung transplantation and this may be an option for her. Age may be a limiting factor however it's reasonable to pursue this option at a later stage once the patient is discharged from the hospital. No nausea. No vomiting. No abdominal pain. No chest pain. No major swelling lower extremities. No fever. She is on Zosyn. He is on bronchodilators. She is on IV Solu-Medrol. On 08/23/2018 patient seen in follow-up on medical surgical floor. Continues to improve. Lung sounds are diminished, patient has occasional cough with production of light yellow phlegm. Overall feeling better, breathing easier. History of patient refused a blood gas, this was done in an attempt to qualify the patient for home NPPV unit. She stated she cannot tolerate BiPAP or CPAP anyway, and therefore she declined a blood gas. Fever or chills, currently on 3 L per nasal cannula, her pulse ox of 99%. Patient has been ambulating in the hallway, tolerating activity well. Her chest x-ray was reviewed and showed a right lower lobe atelectasis, limited infiltration at the right lung base. The nuclear patient denies any worsening shortness of breath, no chest wall tenderness, no significant chest congestion. No Fever or chills. Patient is on empiric antibiotics in the form of Zosyn, denies bronchodilators, and IV steroids, she is improving. Blood culture showed coagulase-negative staph, urine culture was negative. Unable to obtain a sputum culture. The patient is seen again today 08/24/2018 in follow-up on the regular medical floor. She is currently sitting up in a chair at the bedside. She is awake and alert in no acute distress. She states she is still not back to her baseline. She is maintaining good O2 saturations in the upper 90s on 2 L/m per nasal cannula. She's been afebrile. Hemodynamically stable. Blood and urine cultures reveal no growth. On 08/25/2018, the patient is still having difficulties in breathing. Today she walked in the hallway and as she was walking she became hypoxic and this was a brief hypoxemia that recovered after being on 3 L of oxygen nasal cannula. Obviously there may be a component of anxiety as the patient is quite worked up and anxious whenever she gets short of breath and she is not happy with her current condition. She has severe COPD with an FEV1 of 27% of predicted. She is not smoking. She is interested in undergoing a transferred evaluation outpatient basis. I have made recommendations to stop the IV Solu Medrol put the patient on prednisone burst taper. She'll be also started on Xanax for anxiety. Objective - Vital Signs Vital signs: Vital Signs Temp 97.9 F 08/25/18 14:42 Pulse 101 H 08/25/18 14:42 Resp 20 08/25/18 14:42 BP 146/67 08/25/18 14:42 Pulse Ox 100 08/25/18 14:42 Intake & Output 08/24/18 08/25/18 08/25/18 18:59 06:59 18:59 Other: Voiding Method Toilet # Voids 4 1 3 - Exam Gen. appearance, comfortable likely distress. The patient has some cushingoid features. Head exam was generally normal. There was no scleral icterus or corneal arcus. Mucous membranes were moist. Neck was supple and without jugular venous distension, thyromegaly, or carotid bruits. Carotids were easily palpable bilaterally. There was no adenopathy. Lungs sounds are diminished bilaterally along with scattered expiratory wheezes and prolongation of the expiratory phase of breathing. Cardiac exam revealed the PMI to be normally situated and sized. The rhythm was regular and no extrasystoles were noted during several minutes of auscultation. The first and second heart sounds were normal and physiologic splitting of the second heart sound was noted. There were no murmurs, rubs, clicks, or gallops. Abdominal exam revealed normal bowel sounds. The abdomen was soft, non-tender, and without masses, organomegaly, or appreciable enlargement of the abdominal aorta. Examination of the extremities revealed easily palpable radial, femoral and pedal pulses. There was no cyanosis, clubbing or edema. Examination of the skin revealed no evidence of significant rashes, suspicious appearing nevi or other concerning lesions. Neurologically the patient is awake and alert and there is no focal neurological deficits. - Labs CBC & Chem 7: 08/21/18 08:36 08/21/18 08:36 Labs: Abnormal Lab Results - Last 24 Hours (Table) 08/24/18 08/24/18 08/25/18 Range/Units 16:33 20:36 07:03 POC Glucose (mg/dL) 201 H 132 H 142 H (75-99) mg/dL 08/25/18 Range/Units 12:16 POC Glucose (mg/dL) 116 H (75-99) mg/dL Assessment and Plan Plan: #1. Acute on chronic hypoxemic respiratory failure related to acute COPD exacerbation, and possibility of pneumonia cannot be entirely ruled out. Likely improving. There is considerable amount of anxiety along with her shortness of breath as the patient has severe advanced COPD with a baseline FEV1 of 27% of predicted. She has significant limitation excess capacity. #2. Recurrent hospitalizations for complications related to COPD #3. Severe advanced stage IV COPD with the underlying FEV1 of 27% of predicted , with chronic hypoxic respiratory failure #4. Acute on chronic hypercapnic respiratory failure secondary to above #5. Former tobacco dependence, patient quit smoking in 1999 #6. Rheumatoid arthritis #7. Hypertension #8. Depression #9. History of right colectomy for small bowel obstruction with subsequent wound dehiscence and reclosure #10. History of vulvar cancer with resection, hysterectomy Plan Will add Xanax 0.5 mg every 8 hours on a when necessary basis. This continued IV Solu Medrol and put the patient prednisone burst taper. Continue Pulmicort Respules and perform a blotchy minutes twice a day. Continue DuoNeb nebulized treatment 4 times a day. IV Zosyn. Would benefit from outpatient pulmonary rehabilitation. She is interested in transplant evaluation that needs to be considered on outpatient basis.
[2018-08-25 16:47] LABS: Glucose,Whole Blood 272 mg/dL (75-99)
[2018-08-25 21:05] LABS: Glucose,Whole Blood 134 mg/dL (75-99)
[2018-08-25] MEDS: MELATONIN 5 MG TABLET PO SCH (21:38)
[2018-08-25] MEDS: MONTELUKAST 10 MG TAB PO SCH (21:38)
--- NOTE | 2018-08-25 22:57 | P.PN ---
Subjective Progress Note Date: 08/25/18 Principal diagnosis: Acute COPD exacerbation 63-year-old female with past medical history as documented who presents the ED today via EMS for evaluation of shortness of breath. Patient reports she's had progressively worsening shortness of breath, minimally productive cough, subjective fevers, chills and generalized fatigue. Patient reports that he symptoms of progressively worsened throughout the day despite trying to rest. She denies any exertional chest pain or palpitations. Comparing of cough with mild sputum production. Patient is found to have bilateral lower lobe infiltrates significant on the right side considering her fever and leukocytosis patient was started on antibiotic for pneumonia healthcare associated pneumonia vancomycin and Zosyn vancomycin was discontinued patient does use 3 L of oxygen at home does have end-stage COPD patient is presently on 3 L. Patient does have significant wheezing on exam will be started on prednisone 40 mg daily along with inhalational treatments pulmonary was consulted from ER 08/22/2018 Patient is still having diffuse wheezing and shortness of breath. Blood cultures negative. Urine culture is negative as well. No leukocytosis. Patient most likely has acute COPD exacerbation and pneumonia is less likely. Continue the IV steroids and breathing treatments and antibiotics. Pulmonary is on board. Otherwise no acute overnight issues. No nausea vomiting or abdominal pain. No diarrhea. 08/25/2018 Patient is still complaining of shortness of breath. Patient is desaturating to 87% with walking. Patient is already on 3 L oxygen via nausea cannula. Patient says that she was advised by her sister to go to rehab. Seems to be concentrated. Otherwise IV steroids have been changed to prednisone by mouth. Pulmonary is on board. No other acute overnight issues. Otherwise. No chest pain. No fever no chills. Current medications reviewed Objective - Vital Signs Vital signs: Vital Signs Temp 97.9 F 08/25/18 14:42 Pulse 90 08/25/18 15:46 Resp 18 08/25/18 15:46 BP 146/67 08/25/18 14:42 Pulse Ox 100 08/25/18 14:42 Intake & Output 08/24/18 08/25/18 08/25/18 18:59 06:59 18:59 Other: Voiding Method Toilet # Voids 4 1 3 - Exam PHYSICAL EXAMINATION: GENERAL: The patient is alert and oriented x3, not in any acute distress. Well developed, well nourished. HEENT: Pupils are round and equally reacting to light. EOMI. No scleral icterus. No conjunctival pallor. Normocephalic, atraumatic. No pharyngeal erythema. No thyromegaly. CARDIOVASCULAR: S1 and S2 present. No murmurs, rubs, or gallops. PULMONARY: Metadate entry into bilateral lung guzman expiratory wheezing moderate not using accessory muscles of breathing ABDOMEN: Soft, nontender, nondistended, normoactive bowel sounds. No palpable organomegaly. MUSCULOSKELETAL: No joint swelling or deformity. EXTREMITIES: No cyanosis, clubbing, or pedal edema. NEUROLOGICAL: Gross neurological examination did not reveal any focal deficits. SKIN: No rashes. - Labs CBC & Chem 7: 08/21/18 08:36 08/21/18 08:36 Labs: Abnormal Lab Results - Last 24 Hours (Table) 08/24/18 08/24/18 08/25/18 Range/Units 16:33 20:36 07:03 POC Glucose (mg/dL) 201 H 132 H 142 H (75-99) mg/dL 08/25/18 Range/Units 12:16 POC Glucose (mg/dL) 116 H (75-99) mg/dL Assessment and Plan Assessment: -Acute on chronic hypercapnic respiratory failure secondary to COPD exacerbation patient will be started on systemic steroids inhalational treatments, patient has gold stage IV COPD with FEV1 27% of predicted. -Possible sepsis secondary to bilateral lower lobe pneumonia: Zosyn will be continued . Negative blood cultures -Hypertension: Lisinopril will be continued amlodipine will be held because of low normal blood pressures -Hyponatremia mild hypovolemic hyponatremia secondary to diuretic therapy from my Lasix which I do not believe is necessary this will be discontinued -Mild acute renal failure secondary to diuretic therapy which will be held -Depression/anxiety Time with Patient: Greater than 30
[2018-08-26] MEDS: PIPERACILLIN-TAZOBACTAM 3.375 GM in DEXTROSE/WATER 1 50ML.BAG IVPB SCH ×4 (00:04→22:55)
[2018-08-26] MEDS: ALPRAZolam 0.5 MG TAB PO PRN ×3 (00:04→20:59)
[2018-08-26] MEDS: HYDROcodone/APAP 10-325MG 1 EACH TAB PO PRN ×3 (01:36→19:32)
[2018-08-26] MEDS: IPRATROPIUM-ALBUTEROL 3 ML NEB INHALATION SCH ×6 (04:06→23:40)
[2018-08-26] MEDS: BUDESONIDE 0.5 MG/2 ML NEBU INHALATION SCH ×2 (07:34→20:15)
[2018-08-26] MEDS: FORMOTEROL FUMARATE 20 MCG/2 ML NEBU INHALATION SCH ×2 (07:34→20:15)
[2018-08-26 07:40] LABS: Glucose,Whole Blood 109 mg/dL (75-99)
[2018-08-26] MEDS: INSULIN ASPART 100 UNIT/ML 1 ML 10 ML VIAL SQ SCH ×4 (07:41→21:50)
[2018-08-26] MEDS: TETRAHYDROZOLINE 0.05% OPHTH DROPS 15 ML BTL BOTH EYES SCH ×4 (07:51→20:54)
[2018-08-26] MEDS: AMPHETAMINE PO SCH (07:51)
[2018-08-26] MEDS: DEXTROAMPHETAMINE PO SCH (07:51)
[2018-08-26] MEDS: predniSONE 10 MG TAB PO SCH (07:56)
[2018-08-26] MEDS: PANTOPRAZOLE 40 MG TABLET PO SCH (07:56)
[2018-08-26] MEDS: LISINOPRIL 20 MG TAB PO SCH (07:57)
[2018-08-26] MEDS: guaiFENesin 600 MG TABLET.ER PO PRN ×2 (07:57→21:14)
[2018-08-26] MEDS: HEPARIN SODIUM,PORCINE 5,000 UNIT/ML 1 ML VIAL SQ SCH ×2 (07:57→20:53)
[2018-08-26 11:54] LABS: Glucose,Whole Blood 127 mg/dL (75-99)
[2018-08-26] MEDS: MULTIVITAMINS, THERA 1 EACH TAB PO SCH (11:59)
[2018-08-26] MEDS: SODIUM CHLORIDE 0.9% 1,000 ML IV SCH (12:57)
--- NOTE | 2018-08-26 15:30 | P.PN ---
Subjective Progress Note Date: 08/26/18 Principal diagnosis: Acute on chronic hypoxic respiratory failure secondary to acute exacerbation of COPD, doubt pneumonia. This is a 63-year-old white female patient follows with Dr. Ohara in the pulmonary office for her history of advanced oxygen-dependent COPD, was recently hospitalized for acute exacerbation of COPD and discharged home on . She was treated with course of antibiotics, IV steroids, bronchodilators, she improved, however started experiencing increased shortness of breath, cough, production of yellow phlegm about a week ago. She tried to call the pulmonary office for an appointment, was leaving messages, but she states nobody got back with her. Over the weekend her breathing became worse, and she presented to the emergency department for further evaluation and treatment on 08/20/2018. Chest x-ray was completed, and showed mild bilateral lower lobe pulmonary infiltrates, could be related to inflammatory disease, no heart failure. She had a low-grade fever on presentation, with a temp of 100.4 F. Lab work was negative for any significant leukocytosis, on admission, WBC was 11.7, hemoglobin is 11.5, sodium is 132, potassium is 5.2, chloride is 97, renal profile was within normal limits. LFT were within normal limits, troponins were negative 1. Urinalysis showed large amount of leukocyte esterase, few WBCs. Influenza screen was negative. Patient was started on IV steroids, Zosyn, she was given a dose of vancomycin in the emergency department. She started to feel better. She is afebrile. Lung sounds are positive for diffuse wheezes. No acute distress. He is baseline FEV1 is 27% of predicted, stage IV COPD. Patient quit smoking in 1999. Patient has had multiple admissions for exacerbations of COPD, and pulmonary infections. She is interested in evaluation for lung transplantation. On today's evaluation of 08/22/2018, I'm seeing this patient for a follow-up. Slightly less short of breath compared to yesterday. She seems to be gradually improving. She is getting frustrated about her condition knowing that she is bouncing back and forth regarding COPD exacerbation. She is not smoking cigarettes. I explored the possibility of putting this patient on noninvasive positive pressure ventilation however the patient did not show any interest. I ordered a blood gas however she declined to have it done. She is interested in lung transplantation and this may be an option for her. Age may be a limiting factor however it's reasonable to pursue this option at a later stage once the patient is discharged from the hospital. No nausea. No vomiting. No abdominal pain. No chest pain. No major swelling lower extremities. No fever. She is on Zosyn. He is on bronchodilators. She is on IV Solu-Medrol. On 08/23/2018 patient seen in follow-up on medical surgical floor. Continues to improve. Lung sounds are diminished, patient has occasional cough with production of light yellow phlegm. Overall feeling better, breathing easier. History of patient refused a blood gas, this was done in an attempt to qualify the patient for home NPPV unit. She stated she cannot tolerate BiPAP or CPAP anyway, and therefore she declined a blood gas. Fever or chills, currently on 3 L per nasal cannula, her pulse ox of 99%. Patient has been ambulating in the hallway, tolerating activity well. Her chest x-ray was reviewed and showed a right lower lobe atelectasis, limited infiltration at the right lung base. The nuclear patient denies any worsening shortness of breath, no chest wall tenderness, no significant chest congestion. No Fever or chills. Patient is on empiric antibiotics in the form of Zosyn, denies bronchodilators, and IV steroids, she is improving. Blood culture showed coagulase-negative staph, urine culture was negative. Unable to obtain a sputum culture. The patient is seen again today 08/24/2018 in follow-up on the regular medical floor. She is currently sitting up in a chair at the bedside. She is awake and alert in no acute distress. She states she is still not back to her baseline. She is maintaining good O2 saturations in the upper 90s on 2 L/m per nasal cannula. She's been afebrile. Hemodynamically stable. Blood and urine cultures reveal no growth. On 08/25/2018, the patient is still having difficulties in breathing. Today she walked in the hallway and as she was walking she became hypoxic and this was a brief hypoxemia that recovered after being on 3 L of oxygen nasal cannula. Obviously there may be a component of anxiety as the patient is quite worked up and anxious whenever she gets short of breath and she is not happy with her current condition. She has severe COPD with an FEV1 of 27% of predicted. She is not smoking. She is interested in undergoing a transferred evaluation outpatient basis. I have made recommendations to stop the IV Solu Medrol put the patient on prednisone burst taper. She'll be also started on Xanax for anxiety. Patient was reevaluated today on 08/26/2018, feeling better but continues to cough and wheeze, cough is productive with whitish phlegm, no fever no chills no hemoptysis no chest pain. Patient seems to be doing better with Xanax and now she is on prednisone, transitioned from Solu-Medrol. On physical examination today, remains tight and wheezy, hence I recommended possibly another day of treatment on inpatient basis, and possibly discharge the patient home tomorrow. Objective - Vital Signs Vital signs: Vital Signs Temp 97.9 F 08/26/18 14:30 Pulse 104 H 08/26/18 14:30 Resp 18 08/26/18 14:30 BP 148/70 08/26/18 14:30 Pulse Ox 96 08/26/18 14:30 Intake & Output 08/25/18 08/26/18 08/26/18 18:59 06:59 18:59 Intake Total 420 950 Output Total 2 Balance 418 950 Weight 71.2 kg Intake: Intake, IV Titration 420 Amount Piperacillin-Tazobactam 3 100 .375 gm In Dextrose/Water 1 50ml.bag @ 12.5 mls/hr IVPB Q8HR LATESHA Rx#: [id number] Sodium Chloride 0.9% 1, 320 000 ml @ 20 mls/hr IV . Q24H LATESHA Rx#:[id number] Oral 950 Output: Stool 2 Other: Voiding Method Toilet # Voids 3 2 2 - Exam Physical Exam: Revealed a 63-year-old female in no distress. Head: Cushingoid, atraumatic, normocephalic. HEENT:[Neck is supple.] [No neck masses.] [No thyromegaly.] [No JVD.] Chest: [Clear throughout, no crackles, no rhonchi, no wheezes.] Cardiac Exam: Diminished breath sounds at the bases, wheezing bilaterally on forced expiratory maneuver. Abdomen: [Soft, nontender, no megaly, no rebound, no guarding, normal bowel sounds.] Extremities: [No clubbing, no edema, no cyanosis.] Neurological Exam: [No focal neurologic deficit.] Lymphatics: No lymphadenopathy. Skin: No rashes - Labs CBC & Chem 7: 08/21/18 08:36 08/21/18 08:36 Labs: Abnormal Lab Results - Last 24 Hours (Table) 08/25/18 08/25/18 08/26/18 Range/Units 16:44 20:52 07:22 POC Glucose (mg/dL) 272 H 134 H 109 H (75-99) mg/dL 08/26/18 Range/Units 11:52 POC Glucose (mg/dL) 127 H (75-99) mg/dL Assessment and Plan Assessment: Impression: 1 acute on chronic hypoxic respiratory failure secondary to COPD, severe, end- stage, FEV1 of 27%, strongly doubt pneumonia after I reviewed the chest x-ray. 2 acute on chronic hypercapnic respiratory failure secondary to above. 3 rheumatoid arthritis, hypertension, depression, previous right colectomy, former tobacco dependence, quit in 1999. Recommendation: Patient is not quite ready for discharge planning, remains tight on physical examination, will continue the same treatment plan, will reassess on a daily basis, I had a long discussion with the patient today about the pros and cons of lung transplant. Apparently she was told by Dr. Goodman that she might be a candidate for lung transplant, and he will plan to send her to the [facility] or [facility] on outpatient basis. In the meantime we'll continue present treatment of bronchodilators, antibiotics, steroids, not quite ready for discharge planning at this point. Time with Patient: Less than 30
[2018-08-26 17:35] LABS: Glucose,Whole Blood 201 mg/dL (75-99)
[2018-08-26] MEDS: MELATONIN 5 MG TABLET PO SCH (20:53)
[2018-08-26] MEDS: MONTELUKAST 10 MG TAB PO SCH (20:53)
[2018-08-26 21:43] LABS: Glucose,Whole Blood 93 mg/dL (75-99)
--- NOTE | 2018-08-26 23:32 | P.PN ---
Subjective Progress Note Date: 08/26/18 Principal diagnosis: Acute COPD exacerbation 63-year-old female with past medical history as documented who presents the ED today via EMS for evaluation of shortness of breath. Patient reports she's had progressively worsening shortness of breath, minimally productive cough, subjective fevers, chills and generalized fatigue. Patient reports that he symptoms of progressively worsened throughout the day despite trying to rest. She denies any exertional chest pain or palpitations. Comparing of cough with mild sputum production. Patient is found to have bilateral lower lobe infiltrates significant on the right side considering her fever and leukocytosis patient was started on antibiotic for pneumonia healthcare associated pneumonia vancomycin and Zosyn vancomycin was discontinued patient does use 3 L of oxygen at home does have end-stage COPD patient is presently on 3 L. Patient does have significant wheezing on exam will be started on prednisone 40 mg daily along with inhalational treatments pulmonary was consulted from ER 08/22/2018 Patient is still having diffuse wheezing and shortness of breath. Blood cultures negative. Urine culture is negative as well. No leukocytosis. Patient most likely has acute COPD exacerbation and pneumonia is less likely. Continue the IV steroids and breathing treatments and antibiotics. Pulmonary is on board. Otherwise no acute overnight issues. No nausea vomiting or abdominal pain. No diarrhea. 08/25/2018 Patient is still complaining of shortness of breath. Patient is desaturating to 87% with walking. Patient is already on 3 L oxygen via nausea cannula. Patient says that she was advised by her sister to go to rehab. Seems to be concentrated. Otherwise IV steroids have been changed to prednisone by mouth. Pulmonary is on board. No other acute overnight issues. Otherwise. No chest pain. No fever no chills. 08/26/2018 Patient's breathing status is improving. Oxygen saturation 93-95% with walking on 3 L cannula. No fever no chills. Patient is being continued on oral steroids and breathing treatments and antibiotics. Pulmonary is on board. Possible discharge in next 24 hours. Continued on Xanax. Current medications reviewed Objective - Vital Signs Vital signs: Vital Signs Temp 97.9 F 08/26/18 14:30 Pulse 111 H 08/26/18 16:25 Resp 18 08/26/18 14:30 BP 148/70 08/26/18 14:30 Pulse Ox 97 08/26/18 16:25 Intake & Output 10/08/26/18 08/26/18 18:59 06:59 18:59 Intake Total 420 950 Output Total 2 Balance 418 950 Weight 71.2 kg Intake: Intake, IV Titration 420 Amount Piperacillin-Tazobactam 3 100 .375 gm In Dextrose/Water 1 50ml.bag @ 12.5 mls/hr IVPB Q8HR [facility]HA Rx#: [id number] Sodium Chloride 0.9% 1, 320 000 ml @ 20 mls/hr IV . Q24H [facility]ESHA Rx#:[id number] Oral 950 Output: Stool 2 Other: Voiding Method Toilet # Voids 3 2 2 - Exam PHYSICAL EXAMINATION: GENERAL: The patient is alert and oriented x3, not in any acute distress. Well developed, well nourished. HEENT: Pupils are round and equally reacting to light. EOMI. No scleral icterus. No conjunctival pallor. Normocephalic, atraumatic. No pharyngeal erythema. No thyromegaly. CARDIOVASCULAR: S1 and S2 present. No murmurs, rubs, or gallops. PULMONARY: . Bilateral diminished air entry. Minimal expiratory wheeze. Air entry improved. not using accessory muscles of breathing ABDOMEN: Soft, nontender, nondistended, normoactive bowel sounds. No palpable organomegaly. MUSCULOSKELETAL: No joint swelling or deformity. EXTREMITIES: No cyanosis, clubbing, or pedal edema. NEUROLOGICAL: Gross neurological examination did not reveal any focal deficits. SKIN: No rashes. Intact. - Labs CBC & Chem 7: 08/21/18 08:36 08/21/18 08:36 Labs: Abnormal Lab Results - Last 24 Hours (Table) 08/25/18 08/25/18 08/26/18 Range/Units 16:44 20:52 07:22 POC Glucose (mg/dL) 272 H 134 H 109 H (75-99) mg/dL 08/26/18 Range/Units 11:52 POC Glucose (mg/dL) 127 H (75-99) mg/dL Assessment and Plan Assessment: -Acute on chronic hypercapnic respiratory failure secondary to COPD exacerbation patient will be started on systemic steroids inhalational treatments, patient has gold stage IV COPD with FEV1 27% of predicted. -Possible sepsis secondary to bilateral lower lobe pneumonia: Zosyn will be continued . Negative blood cultures -Hypertension: Lisinopril will be continued amlodipine will be held because of low normal blood pressures -Hyponatremia mild hypovolemic hyponatremia secondary to diuretic therapy from my Lasix which I do not believe is necessary this will be discontinued -Mild acute renal failure secondary to diuretic therapy which will be held -Depression/anxiety Time with Patient: Greater than 30
[2018-08-27] MEDS: IPRATROPIUM-ALBUTEROL 3 ML NEB INHALATION SCH ×3 (03:49→11:18)
[2018-08-27] MEDS: ALPRAZolam 0.5 MG TAB PO PRN ×2 (05:07→13:01)
[2018-08-27] MEDS: HYDROcodone/APAP 10-325MG 1 EACH TAB PO PRN ×2 (05:09→13:01)
[2018-08-27 06:22] VITALS: BP 164/77; RESP 22; TEMP 96.4
[2018-08-27 07:03] LABS: Glucose,Whole Blood 99 mg/dL (75-99)
[2018-08-27] MEDS: FORMOTEROL FUMARATE 20 MCG/2 ML NEBU INHALATION SCH (07:19)
[2018-08-27] MEDS: BUDESONIDE 0.5 MG/2 ML NEBU INHALATION SCH (07:19)
[2018-08-27] MEDS: INSULIN ASPART 100 UNIT/ML 1 ML 10 ML VIAL SQ SCH ×2 (07:36→12:26)
[2018-08-27] MEDS: PIPERACILLIN-TAZOBACTAM 3.375 GM in DEXTROSE/WATER 1 50ML.BAG IVPB SCH (09:37)
[2018-08-27] MEDS: DEXTROAMPHETAMINE PO SCH (09:38)
[2018-08-27] MEDS: LISINOPRIL 20 MG TAB PO SCH (09:38)
[2018-08-27] MEDS: AMPHETAMINE PO SCH (09:38)
[2018-08-27] MEDS: predniSONE 10 MG TAB PO SCH (09:38)
[2018-08-27] MEDS: HEPARIN SODIUM,PORCINE 5,000 UNIT/ML 1 ML VIAL SQ SCH (09:38)
[2018-08-27] MEDS: PANTOPRAZOLE 40 MG TABLET PO SCH (09:38)
[2018-08-27] MEDS: TETRAHYDROZOLINE 0.05% OPHTH DROPS 15 ML BTL BOTH EYES SCH ×2 (09:39→13:01)
[2018-08-27] MEDS ORDERED: BENZOCAINE/MENTHOL LOZENG 1 EACH LOZENGE MUCOUS MEM PRN (10:41)
[2018-08-27] MEDS: MULTIVITAMINS, THERA 1 EACH TAB PO SCH (11:06)
[2018-08-27 11:22] LABS: HCT 35.8 % (34.0-46.0); HGB 10.7 gm/dL (11.4-16.0); Hypochromasia Marked; MCH 29.9 pg (25.0-35.0); MCV 99.7 fL (80.0-100.0); Macrocytosis Slight; Mean Platelet Volume 7.2; Platelet Count 432 k/uL (150-450); RBC 3.59 m/uL (3.80-5.40); RDW 14.4 % (11.5-15.5); WBC 18.6 k/uL (3.8-10.6)
[2018-08-27 11:33] VITALS: PULSE 88
[2018-08-27 11:35] LABS: Anion Gap 0 mmol/L; Blood Urea Nitrogen 30 mg/dL (7-17); Carbon Dioxide 38 mmol/L (22-30); Chloride 101 mmol/L (98-107); Glucose 79 mg/dL (74-99); Potassium 5.1 mmol/L (3.5-5.1); Sodium 139 mmol/L (137-145)
[2018-08-27 12:00] LABS: Glucose,Whole Blood 114 mg/dL (75-99)
[2018-08-27 12:22] LABS: Band Neutrophils % 1 %; Eosinophils # (M) 0.74 k/uL (0-0.7); Lymphocytes # (M) 2.23 k/uL (1.0-4.8); Metamyelocytes # (M) 0.37 k/uL (0); Metamyelocytes % 2 %; Monocytes # (M) 1.67 k/uL (0-1.0); Myelocytes # (M) 0.37 k/uL (0); Myelocytes % 2 %; Neutrophils % (M) 72 %; Nucleated Red Blood Cells 0 /100 WBC (0-0); Total Cells Counted 201
[2018-08-27] MEDS: SODIUM CHLORIDE 0.9% 1,000 ML IV SCH (13:02)
--- NOTE | 2018-08-27 13:02 | P.PN ---
Subjective Progress Note Date: 08/27/18 Principal diagnosis: Acute on chronic hypoxic respiratory failure related to acute COPD exacerbation This is a 63-year-old white female patient follows with Dr. Ohara in the pulmonary office for her history of advanced oxygen-dependent COPD, was recently hospitalized for acute exacerbation of COPD and discharged home on . She was treated with course of antibiotics, IV steroids, bronchodilators, she improved, however started experiencing increased shortness of breath, cough, production of yellow phlegm about a week ago. She tried to call the pulmonary office for an appointment, was leaving messages, but she states nobody got back with her. Over the weekend her breathing became worse, and she presented to the emergency department for further evaluation and treatment on 08/20/2018. Chest x-ray was completed, and showed mild bilateral lower lobe pulmonary infiltrates, could be related to inflammatory disease, no heart failure. She had a low-grade fever on presentation, with a temp of 100.4 F. Lab work was negative for any significant leukocytosis, on admission, WBC was 11.7, hemoglobin is 11.5, sodium is 132, potassium is 5.2, chloride is 97, renal profile was within normal limits. LFT were within normal limits, troponins were negative 1. Urinalysis showed large amount of leukocyte esterase, few WBCs. Influenza screen was negative. Patient was started on IV steroids, Zosyn, she was given a dose of vancomycin in the emergency department. She started to feel better. She is afebrile. Lung sounds are positive for diffuse wheezes. No acute distress. He is baseline FEV1 is 27% of predicted, stage IV COPD. Patient quit smoking in 1999. Patient has had multiple admissions for exacerbations of COPD, and pulmonary infections. She is interested in evaluation for lung transplantation. On today's evaluation of 08/22/2018, I'm seeing this patient for a follow-up. Slightly less short of breath compared to yesterday. She seems to be gradually improving. She is getting frustrated about her condition knowing that she is bouncing back and forth regarding COPD exacerbation. She is not smoking cigarettes. I explored the possibility of putting this patient on noninvasive positive pressure ventilation however the patient did not show any interest. I ordered a blood gas however she declined to have it done. She is interested in lung transplantation and this may be an option for her. Age may be a limiting factor however it's reasonable to pursue this option at a later stage once the patient is discharged from the hospital. No nausea. No vomiting. No abdominal pain. No chest pain. No major swelling lower extremities. No fever. She is on Zosyn. He is on bronchodilators. She is on IV Solu-Medrol. On 08/23/2018 patient seen in follow-up on medical surgical floor. Continues to improve. Lung sounds are diminished, patient has occasional cough with production of light yellow phlegm. Overall feeling better, breathing easier. History of patient refused a blood gas, this was done in an attempt to qualify the patient for home NPPV unit. She stated she cannot tolerate BiPAP or CPAP anyway, and therefore she declined a blood gas. Fever or chills, currently on 3 L per nasal cannula, her pulse ox of 99%. Patient has been ambulating in the hallway, tolerating activity well. Her chest x-ray was reviewed and showed a right lower lobe atelectasis, limited infiltration at the right lung base. The nuclear patient denies any worsening shortness of breath, no chest wall tenderness, no significant chest congestion. No Fever or chills. Patient is on empiric antibiotics in the form of Zosyn, denies bronchodilators, and IV steroids, she is improving. Blood culture showed coagulase-negative staph, urine culture was negative. Unable to obtain a sputum culture. On 08/27/2018 patient seen in follow-up on medical surgical floor. He had an episode of shortness of breath last night, improved with breathing treatments. Currently sitting up in the chair, in no acute distress, early on treated as per nasal cannula, her pulse ox is 100%, she is afebrile, hemodynamically stable. Lung sounds are diminished to auscultation, no wheezing or rhonchi. Her worsening shortness of breath, no chest pain. Blood culture was positive for staph hominis, likely contamination. Sputum culture showed no growth. Today's lab work showed RBC of 18.6, hemoglobin 10.7, sodium is 139, potassium is 5.1, chloride is 101, CO2 is 38, B1 is 30, creatinine 0.73. No fever or chills. Patient is tolerating ambulation. Objective - Vital Signs Vital signs: Vital Signs Temp 96.4 F L 08/27/18 06:00 Pulse 88 08/27/18 11:32 Resp 22 08/27/18 06:00 BP 164/77 08/27/18 06:00 Pulse Ox 100 08/27/18 07:21 Intake & Output 08/26/18 08/27/18 08/27/18 18:59 06:59 18:59 Intake Total 950 200 Balance 950 200 Weight 71.2 kg Intake: Oral 950 200 Other: Voiding Method Toilet Toilet # Voids 2 1 - Exam Gen. appearance, comfortable likely distress. The patient has some cushingoid features. Head exam was generally normal. There was no scleral icterus or corneal arcus. Mucous membranes were moist. Neck was supple and without jugular venous distension, thyromegaly, or carotid bruits. Carotids were easily palpable bilaterally. There was no adenopathy. Lungs sounds are diminished bilaterally, prolongation of the expiratory phase of breathing. Overall improving Cardiac exam revealed the PMI to be normally situated and sized. The rhythm was regular and no extrasystoles were noted during several minutes of auscultation. The first and second heart sounds were normal and physiologic splitting of the second heart sound was noted. There were no murmurs, rubs, clicks, or gallops. Abdominal exam revealed normal bowel sounds. The abdomen was soft, non-tender, and without masses, organomegaly, or appreciable enlargement of the abdominal aorta. Examination of the extremities revealed easily palpable radial, femoral and pedal pulses. There was no cyanosis, clubbing or edema. Examination of the skin revealed no evidence of significant rashes, suspicious appearing nevi or other concerning lesions. Neurologically the patient is awake and alert and there is no focal neurological deficits. - Labs CBC & Chem 7: 08/27/18 10:49 08/27/18 10:49 Labs: Abnormal Lab Results - Last 24 Hours (Table) 08/26/18 08/27/18 08/27/18 Range/Units 17:32 10:49 10:49 WBC 18.6 H (3.8-10.6) k/uL RBC 3.59 L (3.80-5.40) m/uL Hgb 10.7 L (11.4-16.0) gm/dL MCHC 30.0 L (31.0-37.0) g/dL Carbon Dioxide 38 H (22-30) mmol/L BUN 30 H (7-17) mg/dL POC Glucose (mg/dL) 201 H (75-99) mg/dL Assessment and Plan Plan: Assessment #1. Acute on chronic hypoxemic respiratory failure related to acute COPD exacerbation, and possibility of pneumonia cannot be entirely ruled out. Chest x-ray showed reticular infiltrate in the left lower lobe, could be related to inflammatory disease, or pneumonia. #2. Recurrent hospitalizations for complications related to COPD #3. Severe advanced stage IV COPD with the underlying FEV1 of 27% of predicted #4. Acute on chronic hypercapnic respiratory failure secondary to above #5. Former tobacco dependence, patient quit smoking in 1999 #6. Rheumatoid arthritis #7. Hypertension #8. Depression #9. History of right colectomy for small bowel obstruction with subsequent wound dehiscence and reclosure #10. History of vulvar cancer with resection, hysterectomy Plan: Continue oral prednisone, nebulized bronchodilators, current antibiotics. Blood culture was positive for staph hominis, likely contamination. No fever or chills. Her breathing is at her baseline, 100 perspective patient is stable for discharge home today on prednisone taper, oral course of abiotic, nebulized bronchodilators and her inhalers. Follow up with Dr. Ohara in the office in one week I performed a history & physical examination of the patient and discussed their management with my nurse practitioner, Savanah Mart. I reviewed the nurse practitioner's note and agree with the documented findings and plan of care. Lung sounds are diminished. The findings and the impression was discussed with the patient. I attest to the documentation by the nurse practitioner. Time with Patient: Less than 30
--- NOTE | 2018-08-27 15:32 | P.DS ---
Providers Date of admission: 08/20/18 23:35 Expected date of discharge: 08/27/18 Attending physician: Liliana Cook Consults: 08/21/18 06:50 Consult Physician Routine Consulting Provider: Jose Elias Goodman Consult Reason/Comments: Pnemonia, COPD Do you want consulting provider notified?: Yes, Notify in am Primary care physician: Maryana Sheth [facility] Course: Final Diagnoses: -Acute on chronic hypercapnic respiratory failure secondary to COPD exacerbation. patient has gold stage IV COPD with FEV1 27% of predicted. -Possible sepsis secondary to bilateral lower lobe pneumonia: Zosyn will be continued . Blood cultures reporting staph hominis, repeat blood culture pending with final results to Dr. Mijares -Hypertension -Hyponatremia mild hypovolemic hyponatremia secondary to diuretic therapy from my Lasix which I do not believe is necessary, discontinued -Mild acute renal failure secondary to diuretic therapy which will be held -Depression/anxiety Hospital course: This a 63-year-old female with past medical history as documented who presents the ED today via EMS for evaluation of shortness of breath. Patient reports she's had progressively worsening shortness of breath, minimally productive cough, subjective fevers, chills and generalized fatigue. Patient reports that her symptoms of progressively worsened throughout the day despite trying to rest. She denies any exertional chest pain or palpitations. Comparing of cough with mild sputum production. Patient is found to have bilateral lower lobe infiltrates significant on the right side considering her fever and leukocytosis patient was started on antibiotic for pneumonia healthcare associated pneumonia vancomycin and Zosyn vancomycin was discontinued patient does use 3 L of oxygen at home does have end-stage COPD patient is presently on 3 L. Patient does have significant wheezing on exam will be started on prednisone 40 mg daily along with inhalational treatments pulmonary was consulted from ER Evaluated by pulmonary, maintained on nebulized bronchodilators, systemic steroids, and antibiotics. Significant clinical improvement. Cleared by pulmonary for discharge. Patient is being discharged home in a stable condition with guarded prognosis. EXAMINATION: GENERAL: The patient is alert and oriented x3, not in any acute distress. Well developed, well nourished. HEENT: Pupils are round and equally reacting to light. EOMI. No scleral icterus. No conjunctival pallor. Normocephalic, atraumatic. No pharyngeal erythema. No thyromegaly. CARDIOVASCULAR: S1 and S2 present. No murmurs, rubs, or gallops. PULMONARY: . Bilateral diminished air entry. Minimal expiratory wheeze. Air entry improved. not using accessory muscles of breathing ABDOMEN: Soft, nontender, nondistended, normoactive bowel sounds. No palpable organomegaly. MUSCULOSKELETAL: No joint swelling or deformity. EXTREMITIES: No cyanosis, clubbing, or pedal edema. NEUROLOGICAL: Gross neurological examination did not reveal any focal deficits. SKIN: No rashes. Intact. The impression and plan of care has been dictated as directed. : I performed a history and examination of this patient, discussed the same with the dictator. I agree with the dictator's note ,documented as a scribe. Any additional findings or plans will be noted. Time taken: 35 minutes Patient Condition at Discharge: Stable Plan - Discharge Summary Discharge Rx Participant: No New Discharge Prescriptions: New ALPRAZolam [Xanax] 0.5 mg PO TID PRN #15 tab PRN Reason: Anxiety predniSONE 10 mg PO DIRECTED #18 tab Amoxic-Pot Clav 875-125Mg [Augmentin 875-125] 1 tab PO Q12HR #10 tablet Continue Benazepril HCl 20 mg PO QAM HYDROcodone/APAP 10-325MG [[place] 10-325] 1 tab PO TID PRN PRN Reason: Moderate To Severe Pain Polyethylene Glycol 3350 [Miralax] 17 gm PO DAILY PRN PRN Reason: Constipation Formoterol Fumarate [Perforomist] 20 mcg INHALATION RT-BID Budesonide [Pulmicort] 0.5 mg INHALATION RT-BID Dextroamphetamine/Amphetamine [Adderall Xr] 15 mg PO QAM diphenhydrAMINE [Benadryl] 50 mg PO HS Montelukast [Singulair] 10 mg PO HS #30 tab Multivit-Min/FA/Lycopen/Lutein [Centrum Silver Tablet] 1 tab PO DAILY guaiFENesin [Mucinex] 600 mg PO Q12HR PRN PRN Reason: Congestion Sodium Chloride 0.65% Nasal [Deep Sea (Saline)] 2 spray NASAL QID PRN spray PRN Reason: Dry Nasal Passages Ipratropium-Albuterol Nebulize [Duoneb 0.5 mg-3 mg/3 ml Soln] 3 ml INHALATION RT-QID amLODIPine [Norvasc] 5 mg PO DAILY Tetrahydrozoline 0.05% Ophth [Visine Eye Drops] 1 drop BOTH EYES QID Albuterol Sulfate [Proair Hfa] 1 - 2 puff INHALATION RT-Q6H PRN PRN Reason: Shortness Of Breath Discontinued Furosemide [Lasix] 40 mg PO DAILY PRN PRN Reason: Edema Discharge Medication List Benazepril HCl 20 mg PO QAM 01/24/16 [History] HYDROcodone/APAP 10-325MG [[place] 10-325] 1 tab PO TID PRN 12/29/17 [History] Budesonide [Pulmicort] 0.5 mg INHALATION RT-BID 04/02/18 [History] Dextroamphetamine/Amphetamine [Adderall Xr] 15 mg PO QAM 04/02/18 [History] Formoterol Fumarate [Perforomist] 20 mcg INHALATION RT-BID 04/02/18 [History] Polyethylene Glycol 3350 [Miralax] 17 gm PO DAILY PRN 04/02/18 [History] diphenhydrAMINE [Benadryl] 50 mg PO HS 04/02/18 [History] Montelukast [Singulair] 10 mg PO HS #30 tab 04/12/18 [Rx] Multivit-Min/FA/Lycopen/Lutein [Centrum Silver Tablet] 1 tab PO DAILY 04/19/18 [ History] guaiFENesin [Mucinex] 600 mg PO Q12HR PRN 04/19/18 [History] Sodium Chloride 0.65% Nasal [Deep Sea (Saline)] 2 spray NASAL QID PRN spray [Rx] Albuterol Sulfate [Proair Hfa] 1 - 2 puff INHALATION RT-Q6H PRN 07/21/18 [ History] Ipratropium-Albuterol Nebulize [Duoneb 0.5 mg-3 mg/3 ml Soln] 3 ml INHALATION RT -QID 07/21/18 [History] Tetrahydrozoline 0.05% Ophth [Visine Eye Drops] 1 drop BOTH EYES QID 07/21/18 [ History] amLODIPine [Norvasc] 5 mg PO DAILY 07/21/18 [History] ALPRAZolam [Xanax] 0.5 mg PO TID PRN #15 tab 08/26/18 [Rx] Amoxic-Pot Clav 875-125Mg [Augmentin 875-125] 1 tab PO Q12HR #10 tablet [Rx] predniSONE 10 mg PO DIRECTED #18 tab 08/27/18 [Rx] Follow up Appointment(s)/Referral(s): Meryl Mijares MD [Primary Care Provider] - 08/30/18 10:30 am [facility]Nurse [NON-STAFF] - As Needed Jose Elias Goodman MD [STAFF PHYSICIAN] - 09/04/18 8:45 am Patient Instructions/Handouts: COPD (Chronic Obstructive Pulmonary Disease) (DC ) Activity/Diet/Wound Care/Special Instructions: Please follow up on blood cultures taken with Primary Care Provider. Activity as tolerated. Discharge Disposition: HOME SELF-CARE
[2018-08-27 17:10] LABS: Vitamin D 25 Hydroxy 27.6 ng/mL (30.0-100.0)
[2018-08-27 17:23] LABS: Folate, Serum 13.4 ng/mL
[2018-08-28 12:11] LABS: Vitamin D, 1, 25-Dihydroxy 80 pg/mL (20 - 79)
[2018-08-28] MEDS ORDERED: PIPERACILLIN-TAZOBACTAM 3.375 GM in SODIUM CHLORIDE 0.9% 100 ML IVPB SCH (16:00)
== END 2018-08-27 14:32 | disposition home or self-care (01) | DRG 871 ==
LOC: EC 21:52 → 4MS4W 23:35
PROVIDERS: ADMIT Hospitalist; ATTEND Hospitalist
DX: A41.9 Sepsis, unspecified organism (principal); J18.9 Pneumonia, unspecified organism; J96.21 Acute and chronic respiratory failure with hypoxia; J96.22 Acute and chronic respiratory failure with hypercapnia; J44.1 Chronic obstructive pulmonary disease with (acute) exacerbation; E87.1 Hypo-osmolality and hyponatremia; N17.9 Acute kidney failure, unspecified; J44.0 Chronic obstructive pulmonary disease with (acute) lower respiratory infection; I10 Essential (primary) hypertension; M06.9 Rheumatoid arthritis, unspecified; M10.9 Gout, unspecified; M85.80 Other specified disorders of bone density and structure, unspecified site; Z96.651 Presence of right artificial knee joint; F32.9 Major depressive disorder, single episode, unspecified; F40.240 Claustrophobia; T50.2X5A Adverse effect of carbonic-anhydrase inhibitors, benzothiadiazides and other diuretics, initial encounter; Z87.891 Personal history of nicotine dependence; Z87.440 Personal history of urinary (tract) infections; Z90.710 Acquired absence of both cervix and uterus; Z90.49 Acquired absence of other specified parts of digestive tract; Z79.899 Other long term (current) drug therapy; Z88.5 Allergy status to narcotic agent; Z88.8 Allergy status to other drugs, medicaments and biological substances; Z85.44 Personal history of malignant neoplasm of other female genital organs; Z99.81 Dependence on supplemental oxygen; Z85.038 Personal history of other malignant neoplasm of large intestine; Z79.52 Long term (current) use of systemic steroids
CPT/HCPCS: 36415; 71045; 71046; 80048; 80053; 81001; 82306; 82550; 82553; 82652; 82746; 82747; 82785; 83605; 84484; 85025; 85610; 85730; 87040; 87077; 87086; 87186; 87502; 93005; 94640; 94760; 96361; 96365; 96374; 99285

== ENCOUNTER → 2019-01-23 | Outpatient (CLI) | payer MEDICARE, OTHER ==
--- NOTE | 2019-01-23 14:14 | CT ---
EXAMINATION TYPE: CT sinus wo con DATE OF EXAM: 01/23/2019 COMPARISON: None HISTORY: Sinus disease CT DLP: 599 mGycm. Automated Exposure Control for Dose Reduction was Utilized. TECHNIQUE: CT scan of the sinuses is performed without contrast, axial images are obtained, coronal r eformatted images are also reviewed. FINDINGS: The paranasal sinuses including the frontal, ethmoid, sphenoid, and maxillary sinuses bila terally are well-aerated without abnormal opacification. The ostiomeatal complex is patent bilateral ly on the coronal images. Visualized portion of mastoid air cells show no abnormal opacification. The globes are intact bilate rally. There is a nasal septal deviation. IMPRESSION: The sinuses are clear and the ostiomeatal complex is patent bilaterally.
== END | disposition home or self-care (01) ==
LOC: RADCTMAIN 12:47
PROVIDERS: ATTEND Internal Medicine Critical Care Medicine
DX: J34.9 Unspecified disorder of nose and nasal sinuses (principal); Z88.4 Allergy status to anesthetic agent; Z88.8 Allergy status to other drugs, medicaments and biological substances
CPT/HCPCS: 70486

== ENCOUNTER → 2019-02-12 | Outpatient (CLI) | payer MEDICARE, OTHER ==
--- NOTE | 2019-02-13 07:44 | CT ---
EXAMINATION TYPE: CT thor lumbar spine wo con DATE OF EXAM: 02/12/2019 COMPARISON: None HISTORY: Lumbago. L/T spine pain. Pt has hx of fractures but unable to remember where CT DLP: 1174.90 mGycm CONTRAST: Unenhanced CT of the thoracic and lumbar spine was performed. Bone and soft tissue window settings a re submitted as well as coronal and sagittal reconstructions. Noted are a moderate compression fractures involving T6, T7 T12 and to a lesser extent T8. Mild bony retropulsion is noted at the T12 segment measuring 2.5 mm. Mild effacement ventral thecal sac at this level without definite cord contact. No retropulsion identified at the remaining levels. Severe to m oderate disc degeneration noted with the multiple areas of vacuum disc seen. Ventral spondylosis. No bony destructive process. Involving the lumbar spine there is moderate superior compression fracture deformity of L5 of uncerta in age and/or etiology. Mild loss of height is noted of the inferior endplate of L2. No bony retropul glenn appreciated. No bony destructive process. Mild degenerative disc disease and ventral spondylosis . IMPRESSION: 1. Multiple thoracic and lumbar compression fractures of uncertain age and/or etiology. See above.
== END | disposition home or self-care (01) ==
LOC: RADCTMAIN 15:55
PROVIDERS: ATTEND Internal Medicine
DX: S22.058A Other fracture of T5-T6 vertebra, initial encounter for closed fracture (principal); S22.068A Other fracture of T7-T8 thoracic vertebra, initial encounter for closed fracture; S22.088A Other fracture of T11-T12 vertebra, initial encounter for closed fracture; S32.058A Other fracture of fifth lumbar vertebra, initial encounter for closed fracture; M51.35 Other intervertebral disc degeneration, thoracolumbar region; M47.815 Spondylosis without myelopathy or radiculopathy, thoracolumbar region
CPT/HCPCS: 72128; 72131

== ENCOUNTER → 2019-02-20 | Outpatient (CLI) | payer MEDICARE, OTHER | END | disposition home or self-care (01) | LOC: LABWHC1 12:17 | PROVIDERS: ATTEND Internal Medicine Critical Care Medicine | DX: J44.9 Chronic obstructive pulmonary disease, unspecified (principal) | CPT/HCPCS: 86850; 86900; 86901 ==

== ENCOUNTER 2019-03-14 10:18 | Day surgery (SDC) | payer MEDICARE, OTHER ==
[2019-03-12 10:04] VITALS: BMI 28.9
[~2019-03-14 10:18] MED LIST changes: -ALVIMOPAN 12 MG CAPSULE PO ONE; -DEXAMETHASONE SOD PHOSPHATE 10 MG/ML 1 ML VIAL IV ONE; -HEPARIN SODIUM,PORCINE 5,000 UNIT/ML 1 ML VIAL SQ ONE; -HYDROmorphone 1 MG/ML 1 ML SYRINGE IVP PRN; +LACTATED RINGERS 1,000 ML IV SCH; +LIDOCAINE 1% 20 ML VIAL (10MG/ML) FOR IV START INTRADERMA PRN; -MIDAZOLAM 2 MG/2 ML VIAL IV PRN; -ONDANSETRON 4 MG/2 ML VIAL IVP ONE; -SCOPOLAMINE 1.5MG/72HR PATCH TRANSDERM ONE; -ceFAZolin 2 GM in SODIUM CHLORIDE 0.9% 100 ML IVPB ONE; -metroNIDAZOLE-NS PMX 500 MG in SALINE 1 100ML.BAG IVPB ONE
[2019-03-14 10:37] VITALS: TEMP 97.1
[2019-03-14] MEDS ORDERED: fentaNYL (PF) 50 MCG/ML 2 ML AMP ONE (12:09)
[2019-03-14] MEDS ORDERED: KETOROLAC 30 MG/ML 1 ML VIAL ONE (12:09)
[2019-03-14] MEDS ORDERED: PROPOFOL 10 MG/ML 20 ML VIAL IV ONE (12:09)
[2019-03-14] MEDS ORDERED: LIDOCAINE 1% INJ 10MG/ML (20 ML MDV) ONE (12:09)
--- NOTE | 2019-03-14 12:16 | P.GSHP ---
History of Present Illness H&P Date: 03/14/19 Chief Complaint: Colon polyp, rectal bleeding 63-year-old female known to our service. Patient had previous colonic resection right side. Patient has intermittent rectal bleeding from hemorrhoids. Being worked up for transplant and needs a colonoscopy for that reason as well. Past Medical History Past Medical History: Cancer, COPD, Deep Vein Thrombosis (DVT), Hypertension, Pneumonia, Rheumatoid Arthritis (RA) Additional Past Medical History / Comment(s): rectal bleed, hx vulva cancer, UTI, colitis, osteopenia, hx cancer of appendix, uses oxygen 2L continuous, waiting for lung transplant due to COPD History of Any Multi-Drug Resistant Organisms: None Reported Past Surgical History: Appendectomy, Bowel Resection, Hysterectomy, Joint Replacement Additional Past Surgical History / Comment(s): Right knee replacement, surgery to remove vulva cancer, EGD/colonoscopy, lasik eye surgery, right colectomy Past Anesthesia/Blood Transfusion Reactions: No Reported Reaction Additional Past Anesthesia/Blood Transfusion Reaction / Comment(s): . Smoking Status: Former smoker - Past Family History Father Family Medical History: Cancer Additional Family Medical History / Comment(s): COLON Mother Family Medical History: Cancer Additional Family Medical History / Comment(s): ESOPHAGUS Sister(s) Family Medical History: Cancer Additional Family Medical History / Comment(s): CERVICAL Medications and Allergies Home Medications Medication Instructions Recorded Confirmed Type Benazepril HCl 20 mg PO QAM 01/24/16 03/12/19 History HYDROcodone/APAP 10-325MG [Phenix 1 tab PO TID PRN 12/29/17 03/12/19 History 10-325] Budesonide [Pulmicort] 0.5 mg INHALATION BID 04/02/18 03/12/19 History Formoterol Fumarate [Perforomist] 20 mcg INHALATION BID 04/02/18 03/12/19 History Montelukast [Singulair] 10 mg PO HS #30 tab 04/12/18 03/12/19 Rx Multivit-Min/FA/Lycopen/Lutein 1 tab PO DAILY 04/19/18 03/12/19 History [Centrum Silver Tablet] guaiFENesin [Mucinex] 1,200 mg PO Q12HR PRN 04/19/18 03/12/19 History Sodium Chloride 0.65% Nasal [Deep 2 spray NASAL QID PRN spray 04/25/18 03/12/19 Rx Sea (Saline)] Albuterol Sulfate [Proair Hfa] 1 - 2 puff INHALATION RT-Q6H PRN 07/21/18 03/12/19 History Ipratropium-Albuterol Nebulize 3 ml INHALATION QID PRN 07/21/18 03/12/19 History [Duoneb 0.5 mg-3 mg/3 ml Soln] Tetrahydrozoline 0.05% Ophth 1 drop BOTH EYES QID PRN 07/21/18 03/12/19 History [Visine Eye Drops] ALPRAZolam [Xanax] 0.5 mg PO TID PRN #15 tab 08/26/18 03/12/19 Rx Fluticasone Nasal [place] [Flonase 1 spray EA NOSTRIL DAILY 03/12/19 03/12/19 History Nasal [place]] Ibuprofen [Advil] 200 mg PO Q8HR PRN 03/12/19 03/12/19 History Ibuprofen [Motrin] 800 mg PO BID 03/12/19 03/12/19 History Pseudoephedrine [Sudafed] 60 mg PO QAM 03/12/19 03/12/19 History Yuplori Updgraft 1 applicate IH DIRECTED 03/12/19 03/12/19 History Allergies Allergy/AdvReac Type Severity Reaction Status Date / Time infliximab [From Remicade] Allergy Dyspnea/HIV Verified 03/14/19 10:28 ES propoxyphene HCl Allergy Rash/Hives/ Verified 03/14/19 10:28 [From [place]] SOB Surgical - Exam Vital Signs Temp Pulse Resp BP Pulse Ox 97.1 F L 101 H 18 115/57 98 03/14/19 10:34 03/14/19 10:34 03/14/19 10:34 03/14/19 10:34 03/14/19 10:34 Physical exam: General: Well-developed, well-nourished HEENT: Normocephalic, sclerae nonicteric Abdomen: Nontender, nondistended Extremities: No edema Neuro: Alert and oriented Assessment and Plan (1) GI bleed Narrative/Plan: Will proceed with colonoscopy Current Visit: No Status: Acute Code(s): K92.2 - GASTROINTESTINAL HEMORRHAGE, UNSPECIFIED SNOMED Code(s): 76365677
--- NOTE | 2019-03-14 12:35 | P.PCN ---
Date of Procedure: 03/14/19 Procedure(s) Performed: PREOPERATIVE DIAGNOSIS: Rectal bleeding, history of colon polyp, preoperative transplant POSTOPERATIVE DIAGNOSIS: Descending colon polyp, hypertrophied anal papilla, diverticulosis PROCEDURE: Colonoscopy with snare polypectomy ANESTHESIA: MAC SURGEON: Brenden Burger M.D. SPECIMENS: Descending colon polyp, hypertrophied papilla ENDOSCOPIC PROCEDURE: The patient was placed on the endoscopy table in the left decubitus position. The Olympus colonoscope was inserted into the anus and passed under direct visualization to the ileocolonic anastomosis. The anastomosis was widely patent. The transverse and proximal descending colon appeared normal. At 65 cm a sessile polyp was identified and removed using the snare with cautery technique. The remainder of the descending sigmoid and rectum appeared normal. At the anus there is noted to be a hypertrophied anal papilla that was removed using the snare with cautery technique. The patient had extensive left-sided diverticulosis. The patient's prep was somewhat suboptimal with adherent bilious stool seen scattered throughout. The patient was taken to the recovery room in stable condition per anesthesia guidelines. RECOMMENDATIONS: Await biopsy results. Recommend follow-up colonoscopy 5 years.
[2019-03-14 12:39] VITALS: RESP 16
[2019-03-14 13:06] VITALS: BP 120/76; PULSE 75
== END 2019-03-14 13:13 | disposition home or self-care (01) ==
LOC: ORWHC2ENDO 10:18
PROVIDERS: ATTEND Surgery
DX: D12.4 Benign neoplasm of descending colon (principal); K63.3 Ulcer of intestine; K57.30 Diverticulosis of large intestine without perforation or abscess without bleeding; K63.4 Enteroptosis; I10 Essential (primary) hypertension; J44.9 Chronic obstructive pulmonary disease, unspecified; M06.9 Rheumatoid arthritis, unspecified; M85.80 Other specified disorders of bone density and structure, unspecified site; Z85.038 Personal history of other malignant neoplasm of large intestine; Z86.010 Personal history of colon polyps; Z86.718 Personal history of other venous thrombosis and embolism; Z87.891 Personal history of nicotine dependence; Z90.49 Acquired absence of other specified parts of digestive tract; Z96.651 Presence of right artificial knee joint; Z99.81 Dependence on supplemental oxygen; Z76.82 Awaiting organ transplant status; Z80.0 Family history of malignant neoplasm of digestive organs; Z80.49 Family history of malignant neoplasm of other genital organs; Z79.891 Long term (current) use of opiate analgesic; Z79.899 Other long term (current) drug therapy; Z79.1 Long term (current) use of non-steroidal anti-inflammatories (NSAID); Z79.51 Long term (current) use of inhaled steroids; Z88.5 Allergy status to narcotic agent; Z88.8 Allergy status to other drugs, medicaments and biological substances; I25.10 Atherosclerotic heart disease of native coronary artery without angina pectoris
CPT/HCPCS: 88305; 45385; J2001; J3010; J1885; J2704

== ENCOUNTER → 2019-03-18 | Outpatient (CLI) | payer MEDICARE, OTHER ==
[2019-03-18 14:01] VITALS: BP 125/64; PULSE 97; RESP 16; TEMP 98.2; BMI 29.6
--- NOTE | 2019-03-18 15:43 | P.HPOB ---
History of Present Illness H&P Date: 03/18/19 Chief Complaint: The patient is here for her routine gynecologic exam and ma mmogram. This is a 63-year-old G0 with [place]. 1983. She is status post TAD and unilateral oophorectomy for benign reasons. She is being seen at the [facility] [place] for possible lung transplant. She was told to have a Pap smear done and this would be needed prior to being put on the transplant list. She does have a history of vulvar cancer and is status post partial Vulvectomy in 2000. She is without gynecologic complaints. She is not sexually active. Review of Systems Weight has been stable. Respiratory: she is had problems with severe COPD and is trying to get on the list for a lung transplant. She denies cardiac or G.I. problems. Past Medical History Past Medical History: Cancer, COPD, Deep Vein Thrombosis (DVT), Hypertension, Pneumonia, Rheumatoid Arthritis (RA) Additional Past Medical History / Comment(s): colitis, osteopenia, hx cancer of appendix, uses oxygen 2L continuous, waiting for lung transplant due to COPD. 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 She has no other history of STDs. History of Any Multi-Drug Resistant Organisms: None Reported Past Surgical History: Appendectomy, Bowel Resection, Hysterectomy, Joint Replacement Additional Past Surgical History / Comment(s): Right knee replacement, partial vulvectomy in 2000, EGD/colonoscopy, lasik eye surgery, right colectomy. TAD with unilateral oophorectomy in 1983. Colonoscopy 2016. Past Anesthesia/Blood Transfusion Reactions: No Reported Reaction Additional Past Anesthesia/Blood Transfusion Reaction / Comment(s): . Past Psychological History: ADD/ADHD, Anxiety Additional Psychological History / Comment(s): . Smoking Status: Former smoker Past Alcohol Use History: Rare (1 month) Additional Past Alcohol Use History / Comment(s): Pt. states she quit smoking in 1999. smoked 1-1 1/2 PPD, started smoking age 13. Past Drug Use History: Marijuana Additional Drug Use History / Comment(s): Quit using Marijuana 04/2016. - Past Family History Father Family Medical History: Cancer, COPD Additional Family Medical History / Comment(s): COLON cancer Mother Family Medical History: Cancer Additional Family Medical History / Comment(s): ESOPHAGUS cancer Sister(s) Family Medical History: Cancer Additional Family Medical History / Comment(s): CERVICAL cancer Medications and Allergies Home Medications Medication Instructions Recorded Confirmed Type Benazepril HCl 20 mg PO QAM 01/24/16 03/18/19 History Budesonide [Pulmicort] 0.5 mg INHALATION BID 04/02/18 03/18/19 History Formoterol Fumarate [Perforomist] 20 mcg INHALATION BID 04/02/18 03/18/19 History Montelukast [Singulair] 10 mg PO HS #30 tab 04/12/18 03/18/19 Rx Multivit-Min/FA/Lycopen/Lutein 1 tab PO DAILY 04/19/18 03/18/19 History [Centrum Silver Tablet] guaiFENesin [Mucinex] 1,200 mg PO Q12HR PRN 04/19/18 03/18/19 History Sodium Chloride 0.65% Nasal [Deep 2 spray NASAL QID PRN spray 04/25/18 03/18/19 Rx Sea (Saline)] Ipratropium-Albuterol Nebulize 3 ml INHALATION QID PRN 07/21/18 03/12/19 History [Duoneb 0.5 mg-3 mg/3 ml Soln] Tetrahydrozoline 0.05% Ophth 1 drop BOTH EYES QID PRN 07/21/18 03/18/19 History [Visine Eye Drops] ALPRAZolam [Xanax] 0.5 mg PO TID PRN #15 tab 08/26/18 03/18/19 Rx Fluticasone Nasal [place] [Flonase 1 spray EA NOSTRIL DAILY 03/12/19 03/18/19 History Nasal [place]] Ibuprofen [Advil] 200 mg PO Q8HR PRN 03/12/19 03/18/19 History Ibuprofen [Motrin] 800 mg PO BID 03/12/19 03/18/19 History Pseudoephedrine [Sudafed] 60 mg PO QAM 03/12/19 03/18/19 History Yuplori Updgraft 1 applicate IH DIRECTED 03/12/19 03/18/19 History Allergies Allergy/AdvReac Type Severity Reaction Status Date / Time infliximab [From Remicade] Allergy Dyspnea/HIV Verified 03/18/19 13:49 ES propoxyphene HCl Allergy Rash/Hives/ Verified 03/18/19 13:49 [From [facility]] SOB Exam Vital Signs Temp Pulse Resp BP 03/18/19 13:54 98.2 F 97 16 125/64 Intake and Output 03/18/19 03/18/19 03/18/19 06:59 14:59 22:59 Other: Weight 71.214 kg Height 5'1", weight 157 pounds, BMI 29.7. This is a well-developed well-nourished heavyset white female who is alert and oriented times 3 in no acute distress. HEENT: Within normal limits. NECK: Supple without mass or thyromegaly. CHEST AND LUNGS: moderate to severe prolonged expiration consistent with COPD. HEART: Regular rate and rhythm. BREASTS: Are without mass or discharge. AXILLARY EXAM: Negative for adenopathy. BACK: Negative for CVA tenderness. ABDOMEN: Soft, obese ,nontender, without palpable masses. PELVIC EXAM: external genitalia is consistent with the previous partial vulvectomy. The posterior vulvar has been removed as well as the majority of the perineal body. The anus seems to go right up to the vaginal mucosa. She continues to have an external hemorrhoid at the 12 o'clock position of the anus that measures approximately 1.5 x 1.0 cm. This appears benign and is stable from the previous exam. Vagina appears normal with mild to moderate atrophy. There is no evidence of prolapse. Bimanual examination is negative for mass or tenderness. RECTAL EXAM: Rectovaginal exam is negative for mass or tenderness and is negative for occult blood. EXTREMITIES: Nontender. IMPRESSION: 1. 63-year-old menopausal female status post TAD and unilateral nephrectomy for benign reasons. 2. History of vulvar cancer status post partial vulvectomy not requiring adjuvant therapy. 3. Stable vulvar findings. 4. Severe COPD. The patient is looking into lung transplant. 5. History of osteopenia PLAN: 1. Pap smear of the vaginal cuff was performed because of her history of vulvar cancer and since she states this was requested by her transplant [place]. 2. Self breast awareness was discussed with the patient. 3. Screening mammogram will be done today. 4. Osteoporosis prevention was discussed. I have stressed the importance of adequate calcium, vitamin D and regular exercise. Recommended amounts of calcium and vitamin D were also discussed. We will plan on repeating bone density testing in one year. 5. She was advised to return in one year for her annual well woman exam.
--- NOTE | 2019-03-19 10:40 | MM ---
Reason for exam: screening (asymptomatic). Last mammogram was performed 1 year and 10 months ago. History: Patient is postmenopausal, history of endometrial cancer, and is nulliparous. Family history of breast cancer. Benign MG stereo VAD BX addl LT of the left breast, June 05, 2017. Benign MG stereo VAD BX RT of the right breast, June 05, 2017. Physical Findings: A clinical breast exam by your physician is recommended on an annual basis and results should be correlated with mammographic findings. MG 3D Screening Mammo W/Cad Bilateral CC and MLO view(s) were taken. Prior study comparison: May 30, 2017, bilateral MG work up mamm w CAD BILAT. May 22, 2017, bilateral MG 3d screening mammo w/cad. There are scattered fibroglandular densities. No significant changes when compared with prior studies. ASSESSMENT: Benign, BI-RAD 2 RECOMMENDATION: Routine screening mammogram of both breasts in 1 year.
== END ==
LOC: WWCWWP 13:17
PROVIDERS: ATTEND Obstetrics & Gynecology
DX: Z12.31 Encounter for screening mammogram for malignant neoplasm of breast (principal)
CPT/HCPCS: 77063; 77067

== ENCOUNTER → 2019-05-05 | Outpatient (CLI) | payer MEDICARE, OTHER ==
--- NOTE | 2019-05-05 23:32 | BD ---
EXAMINATION TYPE: Axial Bone Density DATE OF EXAM: 05/05/2019 COMPARISON :2016,2007 CLINICAL HISTORY: 64-year-old female age related osteoporosis w/o current pathological fx Height: 5' Weight: 159 FRAX RISK QUESTIONS: Glucocorticoids (More than 3mos): y (Ex: prednisone, prednisolone, methylprednisolone, dexamethasone, and hydrocortisone). History of Fracture in Adulthood: y Secondary Osteoporosis: Rheumatoid Arthritis: y RISK FACTORS HISTORY OF: Spine Fracture: back When: 2016 Active: n Postmenopausal woman: y MEDICATIONS: Prednisone or other steroids: yes How Lon years Additional Medications: updrafts Additional History: COPD, pt on lung transplant list , pt on o2 EXAM MEASUREMENTS: Bone mineral densitometry was performed using the [employer]. Bone mineral density about the R hip (g/cm2): 0.806 Bone mineral density about the L hip (g/cm2): 0.798 T Score values are as follows: -----R Neck: -1.7 -----L Neck: -1.7 -----R Total: -1.8 -----L Total: -1.4 Bone mineral density has: Decreased -1.8% since study of: 05/22/2017 Bone mineral density about the L Wrist (g/cm2): 0.441 T Score values are as follows: -----Dist. R+U: -4.6 -----Prox. R+U: -3.1 -----Radius total: -4.0 Bone mineral density has: Increased 1.8% since study of: 09/09/2008 IMPRESSION: Osteoporosis (T Score less than -2.5). There is increased fracture risk and therapy is usually indicated based on age. Re-Screen 1-2 years. NOTE: T-SCORE=SD OF THE YOUNG ADULT MEAN.
== END | disposition home or self-care (01) ==
LOC: RADBDWWP 13:16
PROVIDERS: ATTEND Internal Medicine Rheumatology
DX: M81.0 Age-related osteoporosis without current pathological fracture (principal)
CPT/HCPCS: 77080

== ENCOUNTER → 2019-05-26 | Outpatient (CLI) | payer MEDICARE, OTHER ==
[2019-05-26 19:10] LABS: African American GFR (CKD) 49.5 (60.0-200.0); Albumin 4.1 g/dL (3.80-4.90); Albumin/Globulin Ratio 2.05 (1.60-3.17); Anion Gap 8.3 mmol/L (4.00-12.00); BUN/Creat Ratio 33.85 Ratio (12.00-20.00); Calcium 9.3 mg/dL (8.7-10.3); Carbon Dioxide 23.7 mmol/L (21.6-31.8); Total Bilirubin 0.3 mg/dL (0.2-1.2); Total Protein 6.1 g/dL (6.2-8.2)
== END | disposition home or self-care (01) ==
LOC: LABWHC1 13:58
PROVIDERS: ATTEND Internal Medicine Rheumatology
DX: M81.0 Age-related osteoporosis without current pathological fracture (principal)
CPT/HCPCS: 36415; 80053; 82306

== ENCOUNTER → 2019-06-03 | Outpatient (CLI) | payer MEDICARE, OTHER ==
[~2019-06-03] MED LIST changes: -LACTATED RINGERS 1,000 ML IV SCH; -LIDOCAINE 1% 20 ML VIAL (10MG/ML) FOR IV START INTRADERMA PRN; +SODIUM CHLORIDE 0.9% 500 ML 500 ML in EMPTY BAG 1 BAG IV PRN; +ZOLEDRONIC ACID 5 MG in SODIUM CHLORIDE 0.9% 100 ML IV NR
[2019-06-03 13:04] VITALS: BP 125/77; PULSE 92; RESP 18; TEMP 97.9
== END ==
LOC: PROCWHC3 12:31
PROVIDERS: ATTEND Internal Medicine Rheumatology
DX: M81.0 Age-related osteoporosis without current pathological fracture (principal)
CPT/HCPCS: 96365; J3489

== ENCOUNTER → 2019-08-18 | Outpatient (CLI) | payer MEDICARE, OTHER | END | disposition home or self-care (01) | LOC: LABWHC1 15:56 | PROVIDERS: ATTEND Internal Medicine Critical Care Medicine | DX: R05 Cough (principal); R53.83 Other fatigue | CPT/HCPCS: 87070; 87205 ==

== ENCOUNTER 2019-10-09 16:23 | Inpatient (IN) | payer MEDICARE, OTHER ==
[2019-10-09] MEDS ORDERED: SODIUM CHLORIDE 0.9% 500 ML 500 ML IV STA (16:30)
[2019-10-09] MEDS ORDERED: SODIUM CHLORIDE 0.9% 1,000 ML IV STA (16:30)
[2019-10-09 16:58] LABS: Basophils % (A) 0 %; Eosinophils # (A) 0.3 k/uL (0-0.7); Eosinophils % (A) 3 %; HCT 35.5 % (34.0-46.0); HGB 11.6 gm/dL (11.4-16.0); Lymphocytes # (A) 2.6 k/uL (1.0-4.8); Lymphocytes % (A) 24 %; MCH 31.7 pg (25.0-35.0); MCHC 32.7 g/dL (31.0-37.0); MCV 96.7 fL (80.0-100.0); Mean Platelet Volume 7.9; Monocytes # (A) 0.6 k/uL (0-1.0); Monocytes % (A) 5 %; Neutrophils # (A) 7.3 k/uL (1.3-7.7); Neutrophils % (A) 66 %; Platelet Count 387 k/uL (150-450); RBC 3.67 m/uL (3.80-5.40); RDW 13.2 % (11.5-15.5)
[2019-10-09 17:06] LABS: INR 0.8 (<1.2); Partial Thromboplastin Time 25.2 sec (22.0-30.0); Prothrombin Time 9.3 sec (9.0-12.0)
[2019-10-09 17:08] LABS: Albumin 4.2 g/dL (3.5-5.0); Calcium 9.8 mg/dL (8.4-10.2); Potassium 5.4 mmol/L (3.5-5.1); Total Bilirubin 0.5 mg/dL (0.2-1.3); Total Protein 7.3 g/dL (6.3-8.2)
--- NOTE | 2019-10-09 17:34 | ED ---
SOB HPI - General Chief Complaint: Shortness of Breath Stated Complaint: DOMI, Lung infection Time Seen by Provider: 10/09/19 16:29 Source: patient, RN notes reviewed, old records reviewed Mode of arrival: ambulatory Limitations: no limitations - History of Present Illness Initial Comments: This is a 4-year-old female DF for evaluation of shortness of breath. Patient has history of lung disease scheduled for a lung transplant. The physician recent CAT scan unknown results. Patient is on multiple testing in the recent days months and weeks evaluation regarding lung disease or history of lung disease. Patient is having increasing shortness of breath not feeling well but no fevers increased cough or congestion no pain MD Complaint: shortness of breath, cough -: days(s), week(s) Severity: moderate Severity scale (1-10): 4 Quality: aching Consistency: constant Improves With: nothing Worsens With: nothing Known History Of: COPD, congestive heart failure Context: recent URI Associated Symptoms: chest pain, cough, sputum production Treatments Prior to Arrival: none - Related Data Home Medications Medication Instructions Recorded Confirmed Benazepril HCl 20 mg PO QAM 01/24/16 06/03/19 Budesonide [Pulmicort] 0.5 mg INHALATION BID 04/02/18 06/03/19 Formoterol Fumarate [Perforomist] 20 mcg INHALATION BID 04/02/18 06/03/19 Multivit-Min/FA/Lycopen/Lutein 1 tab PO DAILY 04/19/18 06/03/19 [Centrum Silver Tablet] guaiFENesin [Mucinex] 1,200 mg PO Q12HR PRN 04/19/18 06/03/19 Ipratropium-Albuterol Nebulize 3 ml INHALATION QID PRN 07/21/18 06/03/19 [Duoneb 0.5 mg-3 mg/3 ml Soln] Tetrahydrozoline 0.05% Ophth 1 drop BOTH EYES QID PRN 07/21/18 06/03/19 [Visine Eye Drops] Fluticasone Nasal [place] [Flonase 1 spray EA NOSTRIL DAILY 03/12/19 06/03/19 Nasal [place]] Ibuprofen [Advil] 200 mg PO Q8HR PRN 03/12/19 06/03/19 Ibuprofen [Motrin] 800 mg PO BID 03/12/19 06/03/19 Pseudoephedrine [Sudafed] 60 mg PO QAM 03/12/19 06/03/19 Yuplori Updgraft 1 applicate IH DIRECTED 03/12/19 06/03/19 Previous Rx's Medication Instructions Recorded Montelukast [Singulair] 10 mg PO HS #30 tab 04/12/18 Sodium Chloride 0.65% Nasal [Deep 2 spray NASAL QID PRN spray 04/25/18 Sea (Saline)] ALPRAZolam [Xanax] 0.5 mg PO TID PRN #15 tab 08/26/18 Allergies Allergy/AdvReac Type Severity Reaction Status Date / Time infliximab [From Remicade] Allergy Dyspnea/HIV Verified 10/09/19 16:27 ES propoxyphene HCl Allergy Rash/Hives/ Verified 10/09/19 16:27 [From Darvon] SOB Review of Systems ROS Statement: Those systems with pertinent positive or pertinent negative responses have been documented in the HPI. ROS Other: All systems not noted in ROS Statement are negative. Past Medical History Past Medical History: Cancer, COPD, Deep Vein Thrombosis (DVT), Hypertension, Pneumonia, Rheumatoid Arthritis (RA) Additional Past Medical History / Comment(s): colitis, osteopenia, hx cancer of appendix, uses oxygen 2L continuous, waiting for lung transplant due to COPD. 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 She has no other history of STDs. History of Any Multi-Drug Resistant Organisms: None Reported Past Surgical History: Appendectomy, Bowel Resection, Hysterectomy, Joint Replacement Additional Past Surgical History / Comment(s): Right knee replacement, partial vulvectomy in 2000, EGD/colonoscopy, lasik eye surgery, right colectomy. TAD with unilateral oophorectomy in 1983. Colonoscopy 2016. Past Anesthesia/Blood Transfusion Reactions: No Reported Reaction Additional Past Anesthesia/Blood Transfusion Reaction / Comment(s): . Past Psychological History: ADD/ADHD, Anxiety Smoking Status: Former smoker Past Alcohol Use History: Rare Past Drug Use History: Marijuana - Past Family History Father Family Medical History: Cancer, COPD Additional Family Medical History / Comment(s): COLON cancer Mother Family Medical History: Cancer Additional Family Medical History / Comment(s): ESOPHAGUS cancer Sister(s) Family Medical History: Cancer Additional Family Medical History / Comment(s): CERVICAL cancer General Exam Limitations: no limitations General appearance: alert, in no apparent distress Head exam: Present: atraumatic, normocephalic, normal inspection Eye exam: Present: normal appearance, PERRL, EOMI. Absent: scleral icterus, conjunctival injection, periorbital swelling ENT exam: Present: normal exam, mucous membranes moist Neck exam: Present: normal inspection. Absent: tenderness, meningismus, lymphadenopathy Respiratory exam: Present: respiratory distress, wheezes, accessory muscle use, decreased breath sounds, prolonged expiratory. Absent: rales, rhonchi, stridor Cardiovascular Exam: Present: regular rate, normal rhythm, normal heart sounds. Absent: systolic murmur, diastolic murmur, rubs, gallop, clicks GI/Abdominal exam: Present: soft, normal bowel sounds. Absent: distended, tenderness, guarding, rebound, rigid Extremities exam: Present: normal inspection, full ROM, normal capillary refill. Absent: tenderness, pedal edema, joint swelling, calf tenderness Back exam: Present: normal inspection Neurological exam: Present: alert, oriented X3, CN II-XII intact Psychiatric exam: Present: normal affect, normal mood Skin exam: Present: warm, dry, intact, normal color. Absent: rash Course Vital Signs 10/09/19 10/09/19 10/09/19 16:24 16:27 17:27 Temperature 97.8 F 97.8 F Pulse Rate 100 100 100 Respiratory 24 24 24 Rate Blood Pressure 103/67 103/67 127/54 O2 Sat by Pulse 96 96 96 Oximetry 10/09/19 10/09/19 10/09/19 18:27 18:56 19:13 Temperature Pulse Rate 100 92 89 Respiratory 24 18 18 Rate Blood Pressure 104/60 O2 Sat by Pulse 96 Oximetry - Reevaluation(s) Reevaluation #1: 10/09/19 18:44 Medical records reviewed Reevaluation #2: 10/09/19 20:37 Patient unimproved in symptoms currently. - Consultations Consultation #1: Spoke with Dr. Calixto was agreeable for admission Medical Decision Making - Medical Decision Making 64 female presents today for evaluation regards to shortness breath persistent shortness of breath and COPD exacerbation, will admit for evaluation management breathing treatments. - Lab Data Result diagrams: 10/09/19 16:45 10/09/19 16:45 Lab Results 10/09/19 10/09/19 10/09/19 Range/Units 16:45 16:45 16:45 WBC 11.0 H (3.8-10.6) k/uL RBC 3.67 L (3.80-5.40) m/uL Hgb 11.6 (11.4-16.0) gm/dL Hct 35.5 (34.0-46.0) % MCV 96.7 (80.0-100.0) fL MCH 31.7 (25.0-35.0) pg MCHC 32.7 (31.0-37.0) g/dL RDW 13.2 (11.5-15.5) % Plt Count 387 (150-450) k/uL Neutrophils % 66 % Lymphocytes % 24 % Monocytes % 5 % Eosinophils % 3 % Basophils % 0 % Neutrophils # 7.3 (1.3-7.7) k/uL Lymphocytes # 2.6 (1.0-4.8) k/uL Monocytes # 0.6 (0-1.0) k/uL Eosinophils # 0.3 (0-0.7) k/uL Basophils # 0.0 (0-0.2) k/uL PT (9.0-12.0) sec INR (<1.2) APTT (22.0-30.0) sec Sodium 137 (137-145) mmol/L Potassium 5.4 H (3.5-5.1) mmol/L Chloride 102 (98-107) mmol/L Carbon Dioxide 26 (22-30) mmol/L Anion Gap 9 mmol/L BUN 23 H (7-17) mg/dL Creatinine 0.99 (0.52-1.04) mg/dL Est GFR (CKD-EPI)AfAm 69 (>60 ml/min/1.73 sqM) Est GFR (CKD-EPI)NonAf 60 (>60 ml/min/1.73 sqM) Glucose 89 (74-99) mg/dL Calcium 9.8 (8.4-10.2) mg/dL Magnesium 2.0 (1.6-2.3) mg/dL Total Bilirubin 0.5 (0.2-1.3) mg/dL AST 25 (14-36) U/L ALT 14 (4-34) U/L Alkaline Phosphatase 55 (38-126) U/L Troponin I (0.000-0.034) ng/mL NT-Pro-B Natriuret Pep 94 pg/mL Total Protein 7.3 (6.3-8.2) g/dL Albumin 4.2 (3.5-5.0) g/dL 10/09/19 10/09/19 Range/Units 16:45 16:45 WBC (3.8-10.6) k/uL RBC (3.80-5.40) m/uL Hgb (11.4-16.0) gm/dL Hct (34.0-46.0) % MCV (80.0-100.0) fL MCH (25.0-35.0) pg MCHC (31.0-37.0) g/dL RDW (11.5-15.5) % Plt Count (150-450) k/uL Neutrophils % % Lymphocytes % % Monocytes % % Eosinophils % % Basophils % % Neutrophils # (1.3-7.7) k/uL Lymphocytes # (1.0-4.8) k/uL Monocytes # (0-1.0) k/uL Eosinophils # (0-0.7) k/uL Basophils # (0-0.2) k/uL PT 9.3 (9.0-12.0) sec INR 0.8 (<1.2) APTT 25.2 (22.0-30.0) sec Sodium (137-145) mmol/L Potassium (3.5-5.1) mmol/L Chloride (98-107) mmol/L Carbon Dioxide (22-30) mmol/L Anion Gap mmol/L BUN (7-17) mg/dL Creatinine (0.52-1.04) mg/dL Est GFR (CKD-EPI)AfAm (>60 ml/min/1.73 sqM) Est GFR (CKD-EPI)NonAf (>60 ml/min/1.73 sqM) Glucose (74-99) mg/dL Calcium (8.4-10.2) mg/dL Magnesium (1.6-2.3) mg/dL Total Bilirubin (0.2-1.3) mg/dL AST (14-36) U/L ALT (4-34) U/L Alkaline Phosphatase (38-126) U/L Troponin I <0.012 (0.000-0.034) ng/mL NT-Pro-B Natriuret Pep pg/mL Total Protein (6.3-8.2) g/dL Albumin (3.5-5.0) g/dL - EKG Data -: EKG Interpreted by Me (EKG shows normal sinus bradycardia 3, PA 204, QRS 66, QTC 407) - Radiology Data Radiology results: report reviewed (Chest x-ray is negative for acute disease), image reviewed Disposition Clinical Impression: COPD with acute exacerbation, COPD (chronic obstructive pulmonary disease) Disposition: ADMITTED IP TO THIS HOSP Condition: Fair Is patient prescribed a controlled substance at d/c from ED?: No Referrals: Gavin Riggs [Primary Care Provider] - 1-2 days
[2019-10-09] MEDS ORDERED: IPRATROPIUM-ALBUTEROL 3 ML NEB INHALATION STA (18:26)
--- NOTE | 2019-10-09 19:22 | XR ---
EXAMINATION TYPE: XR chest 2V DATE OF EXAM: 10/09/2019 COMPARISON: 08/18/2019 HISTORY: Cough TECHNIQUE: 2 views FINDINGS: Heart is normal. Lungs are clear of consolidation. There are no hilar masses. There is thor acic kyphotic deformity with anterior wedging of several mid thoracic vertebra. There is up to 50% lo ss of height. There is no pleural effusion. IMPRESSION: No definite active cardiopulmonary disease. Thoracic compression fractures unchanged comp ared to old exam.
[2019-10-09] MEDS: SODIUM CHLORIDE 0.9% 1,000 ML IV SCH (22:00)
[2019-10-10] MEDS: methylPREDNISolone SOD SUCCI 125 MG/2 ML VIAL IV SCH ×4 (00:31→17:11)
[2019-10-10] MEDS: IPRATROPIUM-ALBUTEROL 3 ML NEB INHALATION PRN ×4 (03:29→19:20)
[2019-10-10] MEDS: SODIUM CHLORIDE 0.65% NASAL SPRAY 44 ML BTL NASAL PRN ×2 (03:40→20:04)
[2019-10-10] MEDS: FORMOTEROL FUMARATE 20 MCG/2 ML NEBU INHALATION SCH ×2 (07:02→19:19)
[2019-10-10] MEDS: CHOLECALCIFEROL 1,000 UNIT TAB PO SCH (08:00)
[2019-10-10] MEDS: LISINOPRIL 20 MG TAB PO SCH (08:00)
[2019-10-10] MEDS ORDERED: BUDESONIDE 0.5 MG/2 ML NEBU INHALATION SCH ×2 (08:00→20:00)
[2019-10-10] MEDS ORDERED: ALBUTEROL NEBULIZED 2.5 MG/3 ML INHALATION SCH (08:00)
[2019-10-10] MEDS: ENOXAPARIN 40 MG/0.4 ML SYRINGE SQ SCH (08:00)
[2019-10-10] MEDS: guaiFENesin 600 MG TABLET.ER PO PRN ×2 (08:35→20:22)
[2019-10-10] MEDS ORDERED: FLUTICASONE 50MCG/SPRAY NASAL 16GM EA NOSTRIL PRN (09:00)
[2019-10-10] MEDS ORDERED: FUROSEMIDE 40 MG TAB PO PRN (09:00)
[2019-10-10] MEDS: BENZONATATE 100 MG CAP PO PRN (11:05)
[2019-10-10] MEDS: ACETAMINOPHEN TAB 500 MG TAB PO PRN ×2 (11:05→19:01)
--- NOTE | 2019-10-10 12:14 | CONS ---
CONSULTATION This is a 64-year-old female with a history of long-standing COPD. She comes into the hospital and is evaluated on October 09 for shortness of breath and possible lung infection. The patient has not been feeling well for some time. The patient was recently sent to [facility] for evaluation of lung [facility]. She is currently not listed for lung transplantation. She also recently had a CT scan of the chest which she states showed a "pulmonary infection." Anyway, she received some Zithromax for that. The patient states that her complaints include shortness of breath, chest tightness, cough, wheezing, and chest congestion with phlegm production. These are her typical complaints. She used to smoke heavily. Does not smoke currently. I am not sure that she would be a great candidate for lung transplantation given her body mass index. Anyway, [facility] has not made any decision about her at this time. CURRENT MEDICATIONS: Include benazepril, Pulmicort, Perforomist, vitamins, Mucinex, DuoNeb, Visine eye drops, Flonase nasal spray, Advil, Motrin, Sudafed, albuterol updrafts, Singulair, saline nasal rinse, and Xanax. ALLERGIES: Include REMICADE and PROPOXYPHENE. PAST MEDICAL HISTORY: Includes severe COPD, deep venous thrombosis, hypertension, pneumonia, rheumatoid arthritis, colitis, osteopenia, appendiceal carcinoma, chronic hypoxemic respiratory failure, vulvar cancer, and some other minor medical problems. SURGICAL HISTORY: Includes appendectomy, bowel resection, hysterectomy, joint replacement, partial vulvectomy, EGD, colonoscopy, basic eye surgery, right colectomy, TAD with by unilateral oophorectomy, and colonoscopy. SOCIAL HISTORY: Positive for previous heavy tobacco use. She does not smoke currently. She uses alcohol rarely. She has used marijuana in the past. FAMILY HISTORY: Positive for father with colon cancer and COPD. Mother had a history of esophageal cancer. Sister has a history of cervical cancer. REVIEW OF SYSTEMS: CONSTITUTIONAL: Weakness. NEUROLOGIC: Negative. HEENT Negative. CARDIOVASCULAR: Negative. PULMONARY: Shortness of breath, chest tightness, wheezing, cough, chest congestion and phlegm production. GI: Negative. : Negative. RHEUMATOLOGIC: Negative. IMMUNOLOGIC: Negative. ENDOCRINOLOGIC: Negative. DERMATOLOGIC: Negative. Current vital signs are reviewed. Temperature is 98 degrees, heart rate 82, respiratory rate 20, blood pressure 114/56 mean 75 and 2 L saturation 93%. Appears in no acute distress. She does not have any conversational dyspnea, use of accessory muscles or audible wheezing. HEENT: Examination is grossly unremarkable. Nasal O2 is noted. NECK: Supple. Full range of motion. No adenopathy. Neck veins are flat. CARDIOVASCULAR: Examination reveals regular rhythm and rate. Heart rate normal. No S3, S4. LUNGS: Reveal severely diminished breath sounds. No wheezes or rhonchi. There are some expiratory crackles. Breath sounds are equal bilaterally. On forced maneuver, adventitious lung sounds are a bit more prominent and there is some wheezing and coughing. ABDOMEN: Obese. Bowel sounds are heard. EXTREMITIES: Intact. No cyanosis, clubbing, or edema. SKIN: Without rash. NEUROLOGIC: Examination is brief but nonfocal. LABS: Reviewed. White count 11, hemoglobin 11.6, hematocrit 35.5, platelet count 387,000, PT, INR, PTT normal. Sodium 137, potassium 5.4, chloride 102, CO2 is 26, anion gap 9. BUN and creatinine were 23 and 0.99. Troponins negative, N terminal proBNP is normal. Microbiologic studies are negative. Chest x-ray showed no acute cardiopulmonary disease. Medications are reviewed. ASSESSMENT: 1. Chronic obstructive pulmonary disease exacerbation complicated by purulent tracheobronchitis. 2. Previous history of heavy tobacco use. 3. Currently recently evaluated for lung transplantation at [facility]. 4. History of deep venous thrombosis. 5. History of hypertension. 6. History of pneumonia. 7. History of rheumatoid arthritis. 8. History of colitis. 9. History of osteopenia. 10.History of appendiceal carcinoma. 11.History of vulvar cancer, status post vulvectomy. 12.Chronic hypoxemic respiratory failure. PLAN: The patient's medications are reviewed. Will make sure she is on all appropriate medications. This will include short-acting beta agonists and short-acting muscarinic antagonist as well as long-acting beta agonist, inhaled corticosteroids, and Solu- Medrol. In addition, will make sure she is on an oral antibiotic. Additional recommendations and suggestions are forthcoming. Prognosis is guarded. She has been recently evaluated for lung transplantation at [facility]. I believe her weight will be a limiting factor. MMODL / IJN: [id number] / BECKIE
[2019-10-10 12:20] LABS: Glucose,Whole Blood 185 mg/dL (75-99)
[2019-10-10] MEDS: INSULIN ASPART (NovoLOG) 100 UNIT/ML VIAL SQ SCH ×3 (12:22→20:12)
--- NOTE | 2019-10-10 16:00 | P.HPIM ---
History of Present Illness H&P Date: 10/10/19 Chief Complaint: Difficulty breathing 64-year-old female DF for evaluation of shortness of breath. Patient has history of lung disease scheduled for a lung transplant. The physician recent CAT scan unknown results. Patient is on multiple testing in the recent days months and weeks evaluation regarding lung disease or history of lung disease. Patient is having increasing shortness of breath not feeling well but no fevers increased cough or congestion no pain Workup in ED was significant for an elevated potassium level of 5.4 and slight elevation in BUN of 23; EKG showed normal sinus rhythm and chest exit was negative for any acute disease; patient is admitted to the hospital with acute exacerbation COPD Review of Systems REVIEW OF SYSTEMS: CONSTITUTIONAL: No fever, no malaise, no fatigue. HEENT: No recent visual problems or hearing problems. Denied any sore throat. CARDIOVASCULAR: No chest pain, orthopnea, PND, no palpitations, no syncope. PULMONARY: No shortness of breath, no cough, no hemoptysis. GASTROINTESTINAL: No diarrhea, no nausea, no vomiting, no abdominal pain. NEUROLOGICAL: No headaches, no weakness, no numbness. HEMATOLOGICAL: Denies any bleeding or petechiae. GENITOURINARY: Denies any burning micturition, frequency, or urgency. MUSCULOSKELETAL/RHEUMATOLOGICAL: Denies any joint pain, swelling, or any muscle pain. ENDOCRINE: Denies any polyuria or polydipsia. The rest of the 14-point review of systems is negative. Past Medical History Past Medical History: Cancer, COPD, Deep Vein Thrombosis (DVT), Hypertension, Pneumonia, Rheumatoid Arthritis (RA) Additional Past Medical History / Comment(s): colitis, osteopenia, hx cancer of appendix, uses oxygen 2L continuous, waiting for lung transplant due to COPD. 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 She has no other history of STDs. History of Any Multi-Drug Resistant Organisms: None Reported Past Surgical History: Appendectomy, Bowel Resection, Hysterectomy, Joint Replacement Additional Past Surgical History / Comment(s): Right knee replacement, partial vulvectomy in 2000, EGD/colonoscopy, lasik eye surgery, right colectomy. TAD mathew unilateral oophorectomy in 1983. Colonoscopy 2017. Past Anesthesia/Blood Transfusion Reactions: No Reported Reaction Additional Past Anesthesia/Blood Transfusion Reaction / Comment(s): . Past Psychological History: ADD/ADHD, Anxiety Additional Psychological History / Comment(s): . Smoking Status: Former smoker Past Alcohol Use History: Rare Additional Past Alcohol Use History / Comment(s): Pt. states she quit smoking in 1999. smoked 1-1 1/2 PPD, started smoking age 13. Past Drug Use History: Marijuana Additional Drug Use History / Comment(s): Quit using Marijuana 04/2016. - Past Family History Father Family Medical History: Cancer, COPD Additional Family Medical History / Comment(s): COLON cancer Mother Family Medical History: Cancer Additional Family Medical History / Comment(s): ESOPHAGUS cancer Sister(s) Family Medical History: Cancer Additional Family Medical History / Comment(s): CERVICAL cancer Medications and Allergies Home Medications Medication Instructions Recorded Confirmed Type Benazepril HCl 20 mg PO DAILY 01/24/16 10/09/19 History Budesonide [Pulmicort] 0.5 mg INHALATION RT-BID 04/02/18 10/09/19 History Formoterol Fumarate [Perforomist] 20 mcg INHALATION RT-BID 04/02/18 10/09/19 History Montelukast [Singulair] 10 mg PO HS #30 tab 04/12/18 10/09/19 Rx Multivit-Min/FA/Lycopen/Lutein 1 tab PO DAILY 04/19/18 10/09/19 History [Centrum Silver Tablet] guaiFENesin [Mucinex] 1,200 mg PO Q12HR PRN 04/19/18 10/09/19 History Sodium Chloride 0.65% Nasal [Deep 2 spray NASAL QID PRN spray 04/25/18 10/09/19 Rx Sea (Saline)] Ipratropium-Albuterol Nebulize 3 ml INHALATION RT-QID PRN 07/21/18 10/09/19 History [Duoneb 0.5 mg-3 mg/3 ml Soln] Fluticasone Nasal [place] [Flonase 1 spray EA NOSTRIL DAILY PRN 03/12/19 10/09/19 History Nasal [place]] Ibuprofen [Motrin] 800 mg PO TID 03/12/19 10/09/19 History Pseudoephedrine [Sudafed] 30 mg PO QAM PRN 03/12/19 10/09/19 History Acetaminophen [Tylenol Extra 500 mg PO TID PRN 10/09/19 10/09/19 History Strength] Azelastine HCl [Astepro] 1 spray NASAL HS 10/09/19 10/09/19 History Azithromycin [Zithromax] 500 mg PO DAILY 10/09/19 10/09/19 History Benzonatate [Tessalon Perles] 100 mg PO TID PRN 10/09/19 10/09/19 History Cholecalciferol (Vitamin D3) 2,000 unit PO DAILY 10/09/19 10/09/19 History [Vitamin D3] Furosemide [Lasix] 40 mg PO DAILY PRN 10/09/19 10/09/19 History Roflumilast [Daliresp] 500 mcg PO HS 10/09/19 10/09/19 History Yupelri 175mcg/3ml 1 vial INHALATION DAILY@1730 10/09/19 10/09/19 History traZODone HCL 150 mg PO HS 10/09/19 10/09/19 History Allergies Allergy/AdvReac Type Severity Reaction Status Date / Time infliximab [From Remicade] Allergy Dyspnea/HIV Verified 10/09/19 22:05 ES propoxyphene HCl Allergy Rash/Hives/ Verified 10/09/19 22:05 [From Darvon] SOB Physical Exam Vitals: Vital Signs Temp Pulse Pulse Resp BP BP Pulse Ox 10/10/19 08:00 20 10/10/19 07:20 84 10/10/19 07:13 88 10/10/19 07:05 86 10/10/19 05:15 98.0 F 88 20 114/56 93 L 10/10/19 03:36 84 10/10/19 03:31 81 10/09/19 21:45 97.7 F 90 20 117/69 96 10/09/19 20:30 90 18 116/46 99 10/09/19 20:00 97 20 104/62 100 10/09/19 19:30 92 20 109/56 100 10/09/19 19:13 89 18 10/09/19 18:56 92 18 10/09/19 18:27 100 24 104/60 96 10/09/19 17:27 100 24 127/54 96 10/09/19 16:27 97.8 F 100 24 103/67 96 10/09/19 16:24 97.8 F 100 24 103/67 96 Intake and Output 10/09/19 10/10/19 10/10/19 22:59 06:59 14:59 Intake Total 100 Balance 100 Intake: Oral 100 Other: Voiding Method Toilet Toilet # Voids 1 2 Weight 71.214 kg PHYSICAL EXAMINATION: GENERAL: The patient is alert and oriented x3, not in any acute distress. Well developed, well nourished. HEENT: Pupils are round and equally reacting to light. EOMI. No scleral icterus. No conjunctival pallor. Normocephalic, atraumatic. No pharyngeal erythema. No thyromegaly. CARDIOVASCULAR: S1 and S2 present. No murmurs, rubs, or gallops. PULMONARY: Chest is clear to auscultation, no wheezing or crackles. ABDOMEN: Soft, nontender, nondistended, normoactive bowel sounds. No palpable organomegaly. MUSCULOSKELETAL: No joint swelling or deformity. EXTREMITIES: No cyanosis, clubbing, or pedal edema. NEUROLOGICAL: Gross neurological examination did not reveal any focal deficits. SKIN: No rashes. Results CBC & Chem 7: 10/09/19 16:45 10/09/19 16:45 Labs: Abnormal Lab Results - Last 24 Hours (Table) 10/09/19 10/09/19 Range/Units 16:45 16:45 WBC 11.0 H (3.8-10.6) k/uL RBC 3.67 L (3.80-5.40) m/uL Potassium 5.4 H (3.5-5.1) mmol/L BUN 23 H (7-17) mg/dL Thrombosis Risk Factor Assmnt - Choose All That Apply Each Factor Represents 1 point: Abnormal pulmonary function (COPD) Each Risk Factor Represents 2 Points: Age 61-74 years Each Risk Factor Represents 3 Points: History of DVT/PE Thrombosis Risk Factor Assessment Total Risk Factor Score: 6 Thrombosis Risk Factor Assessment Level: High Risk Assessment and Plan Assessment: 1. Acute exacerbation COPD complicated with purulent tracheobronchitis - Patient is started on oral antibiotics in form of Augmentin; patient remains on iron IV Solu-Medrol and nebulizer treatments with steroids and bronchodilators; pulmonary is consulted and await further recommendations 2. Mild renal injury/dehydration; slow IV fluid hydration; monitor strict RADHA's, daily weights, renal function and electrolytes 3. Hypertension; stable on home dose of lisinopril 20 mg daily 4. Hyperglycemia; possibly secondary to steroids; monitor Accu-Cheks every CHF with insulin sliding scale 5. DVT prophylaxis; subcu Lovenox CODE STATUS; full code Time with Patient: Greater than 30
[2019-10-10 16:55] LABS: Glucose,Whole Blood 151 mg/dL (75-99)
[2019-10-10] MEDS: BUDESONIDE 1 MG/2 ML NEBU INHALATION SCH (19:20)
[2019-10-10] MEDS: AMOXIC-POT CLAV 875-125MG 1 EACH TAB PO SCH (20:00)
[2019-10-10] MEDS: MONTELUKAST 10 MG TAB PO SCH (20:00)
[2019-10-10] MEDS: traZODone HCL 50 MG TAB PO SCH (20:01)
[2019-10-10] MEDS: AZELASTINE 137MCG/SPRAY NASAL SCH (20:05)
[2019-10-10 20:13] LABS: Glucose,Whole Blood 199 mg/dL (75-99)
[2019-10-11] MEDS: methylPREDNISolone SOD SUCCI 125 MG/2 ML VIAL IV SCH ×5 (00:22→23:42)
[2019-10-11] MEDS: SODIUM CHLORIDE 0.9% 1,000 ML IV SCH ×2 (00:47→21:39)
[2019-10-11] MEDS: ACETAMINOPHEN TAB 500 MG TAB PO PRN ×3 (03:04→23:44)
[2019-10-11] MEDS: IPRATROPIUM-ALBUTEROL 3 ML NEB INHALATION PRN ×5 (03:17→18:48)
[2019-10-11] MEDS: BUDESONIDE 1 MG/2 ML NEBU INHALATION SCH ×2 (07:06→18:49)
[2019-10-11] MEDS: FORMOTEROL FUMARATE 20 MCG/2 ML NEBU INHALATION SCH ×2 (07:06→18:48)
[2019-10-11 07:09] LABS: Glucose,Whole Blood 135 mg/dL (75-99)
[2019-10-11] MEDS: PSEUDOEPHEDRINE 30 MG TAB PO PRN (07:56)
[2019-10-11] MEDS: INSULIN ASPART (NovoLOG) 100 UNIT/ML VIAL SQ SCH ×4 (07:57→21:14)
[2019-10-11] MEDS: CHOLECALCIFEROL 1,000 UNIT TAB PO SCH (07:57)
[2019-10-11] MEDS: LISINOPRIL 20 MG TAB PO SCH (07:57)
[2019-10-11] MEDS: AMOXIC-POT CLAV 875-125MG 1 EACH TAB PO SCH ×2 (07:57→21:10)
[2019-10-11] MEDS: ENOXAPARIN 40 MG/0.4 ML SYRINGE SQ SCH (07:58)
[2019-10-11 08:04] LABS: Basophils % (A) 0 %; Eosinophils % (A) 0 %; HCT 34.9 % (34.0-46.0); HGB 11.1 gm/dL (11.4-16.0); Lymphocytes # (A) 0.8 k/uL (1.0-4.8); Lymphocytes % (A) 7 %; MCHC 31.9 g/dL (31.0-37.0); MCV 97.3 fL (80.0-100.0); Mean Platelet Volume 8.1; Monocytes # (A) 0.2 k/uL (0-1.0); Monocytes % (A) 1 %; Neutrophils # (A) 11.7 k/uL (1.3-7.7); Neutrophils % (A) 92 %; Platelet Count 377 k/uL (150-450); RBC 3.58 m/uL (3.80-5.40); RDW 13.4 % (11.5-15.5); WBC 12.7 k/uL (3.8-10.6)
[2019-10-11 08:20] LABS: African American GFR (CKD) >90 (>60 ml/min/1.73 sqM); Anion Gap 6 mmol/L; Blood Urea Nitrogen 17 mg/dL (7-17); Calcium 9.3 mg/dL (8.4-10.2); Carbon Dioxide 28 mmol/L (22-30); Chloride 106 mmol/L (98-107); Glucose 142 mg/dL (74-99); Non-African American GFR(CKD) 86 (>60 ml/min/1.73 sqM); Potassium 4.5 mmol/L (3.5-5.1); Sodium 140 mmol/L (137-145)
[2019-10-11 12:00] LABS: Glucose,Whole Blood 125 mg/dL (75-99)
--- NOTE | 2019-10-11 13:59 | P.PN ---
Subjective Progress Note Date: 10/11/19 Principal diagnosis: Acute exacerbation of chronic obstructive pulmonary disease The patient is seen today 10/11/2019 in follow-up on the regular medical floor. She is currently sitting up at the bedside. Awake and alert in no acute distress. She is breathing easier today as compared to yesterday. Not quite back to her base line. Currently maintaining good O2 saturations in the 90s on 2 L/m per nasal cannula. She's been afebrile. Hemodynamically stable. White count 12.7. Hemoglobin 11.1. Creatinine 0.73. She is continued on bronchodilators, Singulair, Solu-Medrol and empiric antibiotics in the form of Augmentin. Objective - Vital Signs Vital signs: Vital Signs Temp 97.7 F 10/11/19 05:00 Pulse 88 10/11/19 11:12 Resp 20 10/11/19 05:00 BP 120/61 10/11/19 05:00 Pulse Ox 93 L 10/11/19 05:00 Intake & Output 10/10/19 10/11/19 10/11/19 18:59 06:59 18:59 Intake Total 940 850 Balance 940 850 Intake: Oral 940 850 Other: Voiding Method Toilet Toilet # Voids 2 2 # Bowel Movements 1 0 - Exam GENERAL EXAM: Alert, pleasant morbidly obese 64-year-old female patient, and 2 L nasal cannula, comfortable in no apparent distress. HEAD: Normocephalic. EYES: Normal reaction of pupils, equal size. NOSE: Clear with pink turbinates. THROAT: No erythema or exudates. NECK: No masses, no JVD. CHEST: No chest wall deformity. LUNGS: Equal air entry with few scattered rhonchi, end expiratory wheeze, diminished. CVS: S1 and S2 normal with no audible murmur, regular rhythm. ABDOMEN: No hepatosplenomegaly, normal bowel sounds, no guarding or rigidity. SPINE: No scoliosis or deformity SKIN: No rashes CENTRAL NERVOUS SYSTEM: No focal deficits, tone is normal in all 4 extremities. EXTREMITIES: There is no peripheral edema. No clubbing, no cyanosis. Peripheral pulses are intact. - Labs CBC & Chem 7: 10/11/19 07:39 10/11/19 07:39 Labs: Abnormal Lab Results - Last 24 Hours (Table) 1210/10/19 10/11/19 Range/Units 16:53 19:59 07:06 WBC (3.8-10.6) k/uL RBC (3.80-5.40) m/uL Hgb (11.4-16.0) gm/dL Neutrophils # (1.3-7.7) k/uL Lymphocytes # (1.0-4.8) k/uL Glucose (74-99) mg/dL POC Glucose (mg/dL) 151 H 199 H 135 H (75-99) mg/dL 10/11/19 10/11/19 10/11/19 Range/Units 07:39 07:39 11:58 WBC 12.7 H (3.8-10.6) k/uL RBC 3.58 L (3.80-5.40) m/uL Hgb 11.1 L (11.4-16.0) gm/dL Neutrophils # 11.7 H (1.3-7.7) k/uL Lymphocytes # 0.8 L (1.0-4.8) k/uL Glucose 142 H (74-99) mg/dL POC Glucose (mg/dL) 125 H (75-99) mg/dL Assessment and Plan Assessment: #1 Acute exacerbation of chronic obstructive pulmonary disease, complicated by purulent tracheobronchitis. #2 History of heavy chronic tobacco dependence. #3 Recent evaluation for possible lung transplantation at [facility]. #4 Acute on chronic hypoxemic respiratory failure secondary to above. #5 Hypertension. #6 Rheumatoid arthritis. #7 Colitis. 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 #10 Osteopenia. #11 history of DVT. Plan: The patient was seen and evaluated by Dr. Cade. She is improved today compared to yesterday. Not quite back to her baseline. We will continue with the current treatment plan. Lidoderm pain patch was added for chronic low back pain. We'll continue to follow and make further recommendations based on her clinical status. I, the cosigning physician, performed a history & physical examination of the patient. Lungs sounds with few scattered rhonchi, end expiratory wheeze, diminished Maintaining good O2 saturations in the 90s on 2 L/m per nasal cannula. I discussed the assessment and plan of care with my nurse prac titioner, Symone Ohara. I attest to the above note as dictated by her.
[2019-10-11] MEDS: LIDOCAINE 5% PATCH TOPICAL SCH (14:56)
--- NOTE | 2019-10-11 15:46 | P.PN ---
Subjective Progress Note Date: 10/11/19 Principal diagnosis: acute exacerbation COPD Restless leg syndrome 10/11/2019 patient is seen in evaluated in follow-up on the regular medical floor. She is currently sitting up at the bedside. Awake and alert in no acute distress. She is breathing easier today as compared to yesterday. Not quite back to her base line. Currently maintaining good O2 saturations in the 90s on 2 L/m per nasal cannula. She's been afebrile. Hemodynamically stable. White count 12.7. Hemoglobin 11.1. Creatinine 0.73. She is continued on bronchodilators, Singulair, Solu-Medrol and empiric antibiotics in the form of Augmentin. patient was started on Requip for restless leg syndrome and requesting dose to be increased Objective - Vital Signs Vital signs: Vital Signs Temp 97.7 F 10/11/19 05:00 Pulse 88 10/11/19 11:12 Resp 20 10/11/19 05:00 BP 120/61 10/11/19 05:00 Pulse Ox 93 L 10/11/19 05:00 Intake & Output 10/10/19 10/11/19 10/11/19 18:59 06:59 18:59 Intake Total 940 850 Balance 940 850 Intake: Oral 940 850 Other: Voiding Method Toilet Toilet # Voids 2 2 # Bowel Movements 1 0 - Exam PHYSICAL EXAMINATION: GENERAL: The patient is alert and oriented x3, not in any acute distress. Well developed, well nourished. HEENT: Pupils are round and equally reacting to light. EOMI. No scleral icterus. No conjunctival pallor. Normocephalic, atraumatic. No pharyngeal erythema. No thyromegaly. CARDIOVASCULAR: S1 and S2 present. No murmurs, rubs, or gallops. PULMONARY: Chest is clear to auscultation, no wheezing or crackles. ABDOMEN: Soft, nontender, nondistended, normoactive bowel sounds. No palpable organomegaly. MUSCULOSKELETAL: No joint swelling or deformity. EXTREMITIES: No cyanosis, clubbing, or pedal edema. NEUROLOGICAL: Gross neurological examination did not reveal any focal deficits. SKIN: No rashes. - Labs CBC & Chem 7: 10/11/19 07:39 10/11/19 07:39 Labs: Abnormal Lab Results - Last 24 Hours (Table) 10/10/19 10/10/19 10/11/19 Range/Units 16:53 19:59 07:06 WBC (3.8-10.6) k/uL RBC (3.80-5.40) m/uL Hgb (11.4-16.0) gm/dL Neutrophils # (1.3-7.7) k/uL Lymphocytes # (1.0-4.8) k/uL Glucose (74-99) mg/dL POC Glucose (mg/dL) 151 H 199 H 135 H (75-99) mg/dL 10/11/19 10/11/19 10/11/19 Range/Units 07:39 07:39 11:58 WBC 12.7 H (3.8-10.6) k/uL RBC 3.58 L (3.80-5.40) m/uL Hgb 11.1 L (11.4-16.0) gm/dL Neutrophils # 11.7 H (1.3-7.7) k/uL Lymphocytes # 0.8 L (1.0-4.8) k/uL Glucose 142 H (74-99) mg/dL POC Glucose (mg/dL) 125 H (75-99) mg/dL Assessment and Plan Assessment: 1. Acute exacerbation COPD complicated with purulent tracheobronchitis - Patient is started on oral antibiotics in form of Augmentin; patient remains on iron IV Solu-Medrol and nebulizer treatments with steroids and bronchodilators; pulmonary is consulted and await further recommendations 2. Mild renal injury/dehydration; slow IV fluid hydration; monitor strict RADHA's, daily weights, renal function and electrolytes 3. Hypertension; stable on home dose of lisinopril 20 mg daily 4. Hyperglycemia; possibly secondary to steroids; monitor Accu-Cheks every CHF with insulin sliding scale 5. DVT prophylaxis; subcu Lovenox CODE STATUS; full code
[2019-10-11 17:15] LABS: Glucose,Whole Blood 145 mg/dL (75-99)
[2019-10-11 20:37] LABS: Glucose,Whole Blood 110 mg/dL (75-99)
[2019-10-11] MEDS: guaiFENesin 600 MG TABLET.ER PO PRN (21:10)
[2019-10-11] MEDS: MONTELUKAST 10 MG TAB PO SCH (21:11)
[2019-10-11] MEDS: traZODone HCL 50 MG TAB PO SCH (21:11)
[2019-10-11] MEDS: AZELASTINE 137MCG/SPRAY NASAL SCH (21:31)
[2019-10-12] MEDS: IPRATROPIUM-ALBUTEROL 3 ML NEB INHALATION PRN ×5 (03:51→20:12)
[2019-10-12 06:01] LABS: Glucose,Whole Blood 130 mg/dL (75-99)
[2019-10-12 06:15] LABS: Basophils % (A) 0 %; Eosinophils % (A) 0 %; HCT 35.2 % (34.0-46.0); HGB 11.1 gm/dL (11.4-16.0); Lymphocytes # (A) 0.7 k/uL (1.0-4.8); Lymphocytes % (A) 5 %; MCH 31.4 pg (25.0-35.0); MCHC 31.4 g/dL (31.0-37.0); MCV 99.8 fL (80.0-100.0); Mean Platelet Volume 8.2; Monocytes # (A) 0.2 k/uL (0-1.0); Monocytes % (A) 2 %; Neutrophils # (A) 12.1 k/uL (1.3-7.7); Neutrophils % (A) 93 %; Platelet Count 397 k/uL (150-450); RBC 3.53 m/uL (3.80-5.40); RDW 13.7 % (11.5-15.5)
[2019-10-12] MEDS: methylPREDNISolone SOD SUCCI 125 MG/2 ML VIAL IV SCH ×4 (06:30→23:45)
[2019-10-12 06:33] LABS: African American GFR (CKD) >90 (>60 ml/min/1.73 sqM); Anion Gap 1 mmol/L; Blood Urea Nitrogen 24 mg/dL (7-17); Carbon Dioxide 33 mmol/L (22-30); Chloride 105 mmol/L (98-107); Glucose 138 mg/dL (74-99); Non-African American GFR(CKD) 85 (>60 ml/min/1.73 sqM); Sodium 139 mmol/L (137-145)
[2019-10-12] MEDS: INSULIN ASPART (NovoLOG) 100 UNIT/ML VIAL SQ SCH ×4 (06:36→20:46)
[2019-10-12] MEDS: ENOXAPARIN 40 MG/0.4 ML SYRINGE SQ SCH (08:04)
[2019-10-12] MEDS: LIDOCAINE 5% PATCH TOPICAL SCH (08:05)
[2019-10-12] MEDS: CHOLECALCIFEROL 1,000 UNIT TAB PO SCH (08:05)
[2019-10-12] MEDS: AMOXIC-POT CLAV 875-125MG 1 EACH TAB PO SCH ×2 (08:06→20:42)
[2019-10-12] MEDS: LISINOPRIL 20 MG TAB PO SCH (08:06)
[2019-10-12] MEDS: PSEUDOEPHEDRINE 30 MG TAB PO PRN (09:55)
[2019-10-12] MEDS: BUDESONIDE 1 MG/2 ML NEBU INHALATION SCH ×2 (10:18→20:12)
[2019-10-12] MEDS: FORMOTEROL FUMARATE 20 MCG/2 ML NEBU INHALATION SCH ×2 (10:18→20:12)
--- NOTE | 2019-10-12 10:54 | P.PN ---
Subjective Progress Note Date: 10/12/19 Principal diagnosis: Acute exacerbation of chronic obstructive pulmonary disease The patient is seen today 10/11/2019 in follow-up on the regular medical floor. She is currently sitting up at the bedside. Awake and alert in no acute distress. She is breathing easier today as compared to yesterday. Not quite back to her base line. Currently maintaining good O2 saturations in the 90s on 2 L/m per nasal cannula. She's been afebrile. Hemodynamically stable. White count 12.7. Hemoglobin 11.1. Creatinine 0.73. She is continued on bronchodilators, Singulair, Solu-Medrol and empiric antibiotics in the form of Augmentin. The patient is seen today 10/12/2019 in follow-up on the regular medical floor. She is awake and alert in no acute distress. Sitting up at the bedside. Breathing better today compared to yesterday. Maintaining good O2 saturations in the upper 90s on 2 L/m per nasal cannula. She's been afebrile. White count 13.0. Hemoglobin 11.1. Creatinine 0.74. She remains on DuoNeb inhalations, Pulmicort and Perforomist inhalations, IV Solu-Medrol, Tessalon Perles, Mucinex, antibiotics in the form of Augmentin. Objective - Vital Signs Vital signs: Vital Signs Temp 98.2 F 10/12/19 04:54 Pulse 92 10/12/19 08:31 Resp 20 10/12/19 04:54 BP 115/64 10/12/19 04:54 Pulse Ox 98 10/12/19 04:54 Intake & Output 10/11/19 10/12/19 10/12/19 18:59 06:59 18:59 Intake Total 500 Balance 500 Intake: Oral 500 Other: Voiding Method Toilet # Voids 3 1 # Bowel Movements 0 - Exam GENERAL EXAM: Alert, pleasant morbidly obese 64-year-old female patient, and 2 L nasal cannula, comfortable in no apparent distress. HEAD: Normocephalic. EYES: Normal reaction of pupils, equal size. NOSE: Clear with pink turbinates. THROAT: No erythema or exudates. NECK: No masses, no JVD. CHEST: No chest wall deformity. LUNGS: Equal air entry with few scattered rhonchi, end expiratory wheeze, diminished. CVS: S1 and S2 normal with no audible murmur, regular rhythm. ABDOMEN: No hepatosplenomegaly, normal bowel sounds, no guarding or rigidity. SPINE: No scoliosis or deformity SKIN: No rashes CENTRAL NERVOUS SYSTEM: No focal deficits, tone is normal in all 4 extremities. EXTREMITIES: There is no peripheral edema. No clubbing, no cyanosis. Peripheral pulses are intact. - Labs CBC & Chem 7: 10/12/19 06:01 10/12/19 06:01 Labs: Abnormal Lab Results - Last 24 Hours (Table) 10/11/19 10/11/19 10/11/19 Range/Units 11:58 17:07 20:35 WBC (3.8-10.6) k/uL RBC (3.80-5.40) m/uL Hgb (11.4-16.0) gm/dL Neutrophils # (1.3-7.7) k/uL Lymphocytes # (1.0-4.8) k/uL Carbon Dioxide (22-30) mmol/L BUN (7-17) mg/dL Glucose (74-99) mg/dL POC Glucose (mg/dL) 125 H 145 H 110 H (75-99) mg/dL 10/12/19 10/12/19 10/12/19 Range/Units 05:56 06:01 06:01 WBC 13.0 H (3.8-10.6) k/uL RBC 3.53 L (3.80-5.40) m/uL Hgb 11.1 L (11.4-16.0) gm/dL Neutrophils # 12.1 H (1.3-7.7) k/uL Lymphocytes # 0.7 L (1.0-4.8) k/uL Carbon Dioxide 33 H (22-30) mmol/L BUN 24 H (7-17) mg/dL Glucose 138 H (74-99) mg/dL POC Glucose (mg/dL) 130 H (75-99) mg/dL Assessment and Plan Assessment: #1 Acute exacerbation of chronic obstructive pulmonary disease, complicated by purulent tracheobronchitis. On them. Antibiotics in the form of Augmentin. #2 History of heavy chronic tobacco dependence. #3 Recent evaluation for possible lung transplantation at [facility]. #4 Acute on chronic hypoxemic respiratory failure secondary to above. #5 Hypertension. #6 Rheumatoid arthritis. #7 Colitis. 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 #10 Osteopenia. #11 history of DVT. Plan: The patient was seen and evaluated by Dr. Cade. We will continue with the current treatment plan. We'll continue to follow and make further recommendations based on her clinical status. I, the cosigning physician, performed a history & physical examination of the patient. Lungs sounds with few scattered rhonchi, end expiratory wheeze, diminis hed Maintaining good O2 saturations in the 90s on 2 L/m per nasal cannula. I discussed the assessment and plan of care with my nurse practitioner, Symone Ohara. I attest to the above note as dictated by her.
[2019-10-12 11:52] LABS: Glucose,Whole Blood 139 mg/dL (75-99)
[2019-10-12] MEDS: IBUPROFEN 800 MG TAB PO SCH ×2 (12:25→17:56)
[2019-10-12 16:57] VITALS: BMI 29.6
[2019-10-12 17:14] LABS: Glucose,Whole Blood 146 mg/dL (75-99)
[2019-10-12] MEDS: ACETAMINOPHEN TAB 500 MG TAB PO PRN (18:25)
--- NOTE | 2019-10-12 18:57 | P.PN ---
Subjective Progress Note Date: 10/12/19 Principal diagnosis: acute exacerbation COPD Restless leg syndrome 10/11/2019 patient is seen in evaluated in follow-up on the regular medical floor. She is currently sitting up at the bedside. Awake and alert in no acute distress. She is breathing easier today as compared to yesterday. Not quite back to her base line. Currently maintaining good O2 saturations in the 90s on 2 L/m per nasal cannula. She's been afebrile. Hemodynamically stable. White count 12.7. Hemoglobin 11.1. Creatinine 0.73. She is continued on bronchodilators, Singulair, Solu-Medrol and empiric antibiotics in the form of Augmentin. patient was started on Requip for restless leg syndrome and requesting dose to be increased 10/12/2019 patient is seen and evaluated in follow-up on the regular medical floor. She is awake and alert in no acute distress. Sitting up at the bedside. patient requesting her pain patches to be refilled for 1 month supply at time of di [facility]; Breathing better today compared to yesterday. Maintaining good O2 saturations in the upper 90s on 2 L/m per nasal cannula. She's been afebrile. White count 13.0. Hemoglobin 11.1. Creatinine 0.74. patient remains on DuoNeb inhalations, Pulmicort and Perforomist inhalations, IV Solu-Medrol, Tessalon Perles, Mucinex, antibiotics in the form of Augmentin. pulmonary is following and recommending to continue current treatment for another 24-48 hours and possible discharge once stable Objective - Vital Signs Vital signs: Vital Signs Temp 97.8 F 10/12/19 14:08 Pulse 96 10/12/19 17:07 Resp 20 10/12/19 14:08 BP 118/75 10/12/19 14:08 Pulse Ox 94 L 10/12/19 14:08 Intake & Output 10/11/19 10/12/19 10/12/19 18:59 06:59 18:59 Intake Total 500 400 Balance 500 400 Weight 71.214 kg Intake: Oral 500 400 Other: Voiding Method Toilet # Voids 3 1 1 # Bowel Movements 0 - Exam PHYSICAL EXAMINATION: GENERAL: The patient is alert and oriented x3, not in any acute distress. Well developed, well nourished. HEENT: Pupils are round and equally reacting to light. EOMI. No scleral icterus. No conjunctival pallor. Normocephalic, atraumatic. No pharyngeal erythema. No thyromegaly. CARDIOVASCULAR: S1 and S2 present. No murmurs, rubs, or gallops. PULMONARY: Chest is clear to auscultation, no wheezing or crackles. ABDOMEN: Soft, nontender, nondistended, normoactive bowel sounds. No palpable organomegaly. MUSCULOSKELETAL: No joint swelling or deformity. EXTREMITIES: No cyanosis, clubbing, or pedal edema. NEUROLOGICAL: Gross neurological examination did not reveal any focal deficits. SKIN: No rashes. - Labs CBC & Chem 7: 10/12/19 06:01 10/12/19 06:01 Labs: Abnormal Lab Results - Last 24 Hours (Table) 10/11/19 10/12/19 10/12/19 Range/Units 20:35 05:56 06:01 WBC 13.0 H (3.8-10.6) k/uL RBC 3.53 L (3.80-5.40) m/uL Hgb 11.1 L (11.4-16.0) gm/dL Neutrophils # 12.1 H (1.3-7.7) k/uL Lymphocytes # 0.7 L (1.0-4.8) k/uL Carbon Dioxide (22-30) mmol/L BUN (7-17) mg/dL Glucose (74-99) mg/dL POC Glucose (mg/dL) 110 H 130 H (75-99) mg/dL 10/12/19 10/12/19 10/12/19 Range/Units 06:01 11:47 17:11 WBC (3.8-10.6) k/uL RBC (3.80-5.40) m/uL Hgb (11.4-16.0) gm/dL Neutrophils # (1.3-7.7) k/uL Lymphocytes # (1.0-4.8) k/uL Carbon Dioxide 33 H (22-30) mmol/L BUN 24 H (7-17) mg/dL Glucose 138 H (74-99) mg/dL POC Glucose (mg/dL) 139 H 146 H (75-99) mg/dL Assessment and Plan Assessment: 1. Acute exacerbation COPD complicated with purulent tracheobronchitis - Patient is started on oral antibiotics in form of Augmentin; patient remains on iron IV Solu-Medrol and nebulizer treatments with steroids and bronchodilators; pulmonary is consulted and await further recommendations 2. Mild renal injury/dehydration; slow IV fluid hydration; monitor strict RADHA's, daily weights, renal function and electrolytes 3. Hypertension; stable on home dose of lisinopril 20 mg daily 4. Hyperglycemia; possibly secondary to steroids; monitor Accu-Cheks every CHF with insulin sliding scale 5. DVT prophylaxis; subcu Lovenox CODE STATUS; full code
[2019-10-12 20:19] LABS: Glucose,Whole Blood 143 mg/dL (75-99)
[2019-10-12] MEDS: traZODone HCL 50 MG TAB PO SCH (20:41)
[2019-10-12] MEDS: MONTELUKAST 10 MG TAB PO SCH (20:42)
[2019-10-12] MEDS: guaiFENesin 600 MG TABLET.ER PO PRN (20:44)
[2019-10-12] MEDS: SODIUM CHLORIDE 0.9% 1,000 ML IV SCH (20:52)
[2019-10-12] MEDS: AZELASTINE 137MCG/SPRAY NASAL SCH (23:45)
[2019-10-13] MEDS: IPRATROPIUM-ALBUTEROL 3 ML NEB INHALATION PRN ×5 (01:51→20:05)
[2019-10-13] MEDS: methylPREDNISolone SOD SUCCI 125 MG/2 ML VIAL IV SCH ×2 (05:08→11:14)
[2019-10-13] MEDS: BENZONATATE 100 MG CAP PO PRN (05:08)
[2019-10-13] MEDS: ACETAMINOPHEN TAB 500 MG TAB PO PRN ×3 (06:27→22:44)
[2019-10-13 07:04] LABS: Glucose,Whole Blood 127 mg/dL (75-99)
[2019-10-13 07:25] LABS: Basophils % (A) 0 %; Eosinophils % (A) 0 %; HCT 31.7 % (34.0-46.0); Lymphocytes # (A) 0.4 k/uL (1.0-4.8); Lymphocytes % (A) 5 %; MCHC 31.5 g/dL (31.0-37.0); MCV 98.6 fL (80.0-100.0); Mean Platelet Volume 8.1; Monocytes # (A) 0.2 k/uL (0-1.0); Monocytes % (A) 2 %; Neutrophils # (A) 7.7 k/uL (1.3-7.7); Neutrophils % (A) 93 %; Platelet Count 339 k/uL (150-450); RBC 3.21 m/uL (3.80-5.40); RDW 13.8 % (11.5-15.5); WBC 8.3 k/uL (3.8-10.6)
[2019-10-13] MEDS: FORMOTEROL FUMARATE 20 MCG/2 ML NEBU INHALATION SCH ×2 (07:36→20:05)
[2019-10-13] MEDS: BUDESONIDE 1 MG/2 ML NEBU INHALATION SCH ×2 (07:36→20:04)
[2019-10-13 07:42] LABS: African American GFR (CKD) >90 (>60 ml/min/1.73 sqM); Anion Gap 4 mmol/L; Blood Urea Nitrogen 30 mg/dL (7-17); Calcium 8.6 mg/dL (8.4-10.2); Carbon Dioxide 28 mmol/L (22-30); Chloride 106 mmol/L (98-107); Glucose 123 mg/dL (74-99); Non-African American GFR(CKD) >90 (>60 ml/min/1.73 sqM); Potassium 5.1 mmol/L (3.5-5.1); Sodium 138 mmol/L (137-145)
[2019-10-13] MEDS: CHOLECALCIFEROL 1,000 UNIT TAB PO SCH (08:03)
[2019-10-13] MEDS: LISINOPRIL 20 MG TAB PO SCH (08:04)
[2019-10-13] MEDS: IBUPROFEN 800 MG TAB PO SCH ×3 (08:04→17:22)
[2019-10-13] MEDS: LIDOCAINE 5% PATCH TOPICAL SCH (08:05)
[2019-10-13] MEDS: ENOXAPARIN 40 MG/0.4 ML SYRINGE SQ SCH (08:05)
[2019-10-13] MEDS: AMOXIC-POT CLAV 875-125MG 1 EACH TAB PO SCH ×2 (08:05→20:17)
[2019-10-13] MEDS: INSULIN ASPART (NovoLOG) 100 UNIT/ML VIAL SQ SCH ×4 (08:14→21:27)
[2019-10-13] MEDS: guaiFENesin 600 MG TABLET.ER PO PRN (08:25)
[2019-10-13] MEDS: PSEUDOEPHEDRINE 30 MG TAB PO PRN (10:39)
[2019-10-13 11:32] LABS: Glucose,Whole Blood 100 mg/dL (75-99)
--- NOTE | 2019-10-13 14:29 | P.PN ---
Subjective Progress Note Date: 10/13/19 Principal diagnosis: acute exacerbation of chronic obstructive pulmonary disease The patient is seen today 10/11/2019 in follow-up on the regular medical floor. She is currently sitting up at the bedside. Awake and alert in no acute distress. She is breathing easier today as compared to yesterday. Not quite back to her base line. Currently maintaining good O2 saturations in the 90s on 2 L/m per nasal cannula. She's been afebrile. Hemodynamically stable. White count 12.7. Hemoglobin 11.1. Creatinine 0.73. She is continued on bronchodilators, Singulair, Solu-Medrol and empiric antibiotics in the form of Augmentin. The patient is seen today 10/12/2019 in follow-up on the regular medical floor. She is awake and alert in no acute distress. Sitting up at the bedside. Breathing better today compared to yesterday. Maintaining good O2 saturations in the upper 90s on 2 L/m per nasal cannula. She's been afebrile. White count 13.0. Hemoglobin 11.1. Creatinine 0.74. She remains on DuoNeb inhalations, Pulmicort and Perforomist inhalations, IV Solu-Medrol, Tessalon Perles, Mucinex, antibiotics in the form of Augmentin. On 10/13/2019 patient seen in follow-up on medical surgical floor, doing well, vitals stable, she is currently on 2 L of oxygen with a pulse ox of 95%, no fever or chills, hemodynamically she is stable, she states her breathing is impr oving, she is tolerating ambulation.patient is on empiric antibiotics, she is on breathing treatment and IV steroids, improved. Objective - Vital Signs Vital signs: Vital Signs Temp 97.8 F 10/13/19 04:54 Pulse 92 10/13/19 11:38 Resp 20 10/13/19 04:54 BP 124/56 10/13/19 04:54 Pulse Ox 95 10/13/19 07:40 Intake & Output 10/12/19 10/13/19 10/13/19 18:59 06:59 18:59 Intake Total 400 Balance 400 Weight 71.214 kg Intake: Oral 400 Other: Voiding Method Toilet Toilet # Voids 1 2 2 # Bowel Movements 3 1 - Exam GENERAL EXAM: Alert, very pleasant, 64-year-old, on 2 L of oxygen with a pulse ox of 94% comfortable in no apparent distress. HEAD: Normocephalic/atraumatic. EYES: Normal reaction of pupils, equal size. Conjunctiva pink, sclera white. NOSE: Clear with pink turbinates. THROAT: No erythema or exudates. NECK: No masses, no JVD, no thyroid enlargement, no adenopathy. CHEST: No chest wall deformity. Symmetrical expansion. LUNGS: Equal air entry with no crackles, wheeze, rhonchi or dullness. CVS: Regular rate and rhythm, normal S1 and S2, no gallops, no murmurs, no rubs ABDOMEN: Soft, nontender. No hepatosplenomegaly, normal bowel sounds, no guarding or rigidity. EXTREMITIES: No clubbing, no edema, no cyanosis, 2+ pulses and upper and lower extremities. MUSCULOSKELETAL: Muscle strength and tone normal. SPINE: No scoliosis or deformity SKIN: No rashes CENTRAL NERVOUS SYSTEM: Alert and oriented -3. No focal deficits, tone is normal in all 4 extremities. PSYCHIATRIC: Alert and oriented -3. Appropriate affect. Intact judgment and insight. - Labs CBC & Chem 7: 10/13/19 06:47 10/13/19 06:47 Labs: Abnormal Lab Results - Last 24 Hours (Table) 10/12/19 10/12/19 10/13/19 Range/Units 17:11 20:17 06:47 RBC 3.21 L (3.80-5.40) m/uL Hgb 10.0 L (11.4-16.0) gm/dL Hct 31.7 L (34.0-46.0) % Lymphocytes # 0.4 L (1.0-4.8) k/uL BUN (7-17) mg/dL Glucose (74-99) mg/dL POC Glucose (mg/dL) 146 H 143 H (75-99) mg/dL 10/13/19 10/13/19 10/13/19 Range/Units 06:47 06:57 11:30 RBC (3.80-5.40) m/uL Hgb (11.4-16.0) gm/dL Hct (34.0-46.0) % Lymphocytes # (1.0-4.8) k/uL BUN 30 H (7-17) mg/dL Glucose 123 H (74-99) mg/dL POC Glucose (mg/dL) 127 H 100 H (75-99) mg/dL Assessment and Plan Plan: #1 Acute exacerbation of chronic obstructive pulmonary disease, complicated by purulent tracheobronchitis. On them. Antibiotics in the form of Augmentin. #2 History of heavy chronic tobacco dependence. #3 Recent evaluation for possible lung transplantation at [facility]. #4 Acute on chronic hypoxemic respiratory failure secondary to above. #5 Hypertension. #6 Rheumatoid arthritis. #7 Colitis. 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 #10 Osteopenia. #11 history of DVT. Plan: patient is doing well, improving, tolerating ambulation, signs are stable, no fever or chills, we'll decrease the IV steroids to 40 mg every 8 hours, anticipate discharge today or tomorrow. Follow-up with Dr. Goodman in the office in one week. I performed a history & physical examination of the patient and discussed their management with my nurse practitioner, Savanah Mart. I reviewed the nurse practitioner's note and agree with the documented findings and plan of care. Lung sounds are positive for diminished breath sounds. The findings and the im pression was discussed with the patient. I attest to the documentation by the nurse practitioner. Time with Patient: Less than 30
[2019-10-13 16:42] LABS: Glucose,Whole Blood 207 mg/dL (75-99)
--- NOTE | 2019-10-13 17:02 | PN ---
PROGRESS NOTE DATE OF SERVICE: 10/13/2019 This 64-year-old woman who was admitted with COPD acute exacerbation, also had significant acute purulent tracheobronchitis also. The patient also had mild renal injury with dehydration present on admission. The BUN is elevated at 30 and blood sugar is also elevated. The most recent chest x-ray evaluated personally by me showed some increased bronchovascular markings, but no solomon evidence of pneumonia. The patient is also being worked up by [facility] as well. PAST MEDICAL HISTORY: Reviewed. REVIEW OF SYSTEMS: Cardiovascular: No angina. Respiration: As mentioned earlier. GI: As mentioned earlier. : No dysuria. CURRENT MEDICATIONS: Reviewed and include: 1. Tylenol p.r.n. 2. DuoNeb q.i.d. and p.r.n. 3. Amoxicillin b.i.d. 4. Astepro. 6. Pulmicort. 7. Lovenox. 8. Flonase. 9. Lasix. 10.Mucinex. 11.Motrin. 12.NovoLog. 13.Zestril. 14.Solu-Medrol 40 IV q.8h. 15.Sudafed. 16.Desyrel. PHYSICAL EXAM: Patient is alert, oriented x3. Pulse 118, blood pressure 120/70, respiration 20, temperature 97.7, pulse ox 96% on 2 L. HEENT are conjunctivae normal. NECK: No JVD. CARDIOVASCULAR: S1, S2 muffled. RESPIRATION: Breath sounds diminished in the bases. Bilateral scattered rhonchi and crackles. Expiratory wheezing also present. ABDOMEN: Soft, nontender. No mass palpable. LEGS: No edema. No swelling. NERVOUS SYSTEM: Higher functions as mentioned earlier. Moves all four limbs. No focal deficits. LYMPHATICS: No lymph nodes palpable in the neck, axillae or groin. SKIN: No ulcer, no rash and no bleeding. JOINTS: No active deforming arthropathy. LABS: WBC 8.3, hemoglobin is 10. ASSESSMENT: 1. Chronic obstructive pulmonary disease acute exacerbation with acute purulent tracheobronchitis or bronchopneumonia possibly gram-negative. 2. Mild renal injury with secondary dehydration. 3. Hypertension. 4. Hyperglycemia. 5. Deep vein thrombosis prophylaxis. 6. Anemia, normocytic anemia of chronic disease. 7. Increased random blood sugar, possibly secondary to steroids. 8. History of deep vein thrombosis. 9. History of pneumonia. 10.History of rheumatoid arthritis. 11.History of colitis. 12.History of osteopenia. 13.History of cancer appendix. 14.Chronic hypoxic respiratory failure on 2 L nasal cannula. 15.History of vulvar cancer. 16.History of bowel resection. 17.History of partial vulvectomy in 2000. 18.History of colonoscopy. 19.Attention-deficit disorder/attention-deficit/hyperactivity disorder/ anxiety. 20.Remote history of nicotine dependence. RECOMMENDATIONS AND DISCUSSION: In this 64-year-old woman who presented with multiple complex medical issues, at this time, I recommend continue the current medication, continue symptomatic treatment. Continue the bronchodilators. Continue with antibiotics. Otherwise, closely follow with Dr. Goodman. IV steroids. Guarded prognosis because of multiple complex medical issues. Further recommendations to follow. Resume the home medications. DVT prophylaxis. See orders for details. MMODL / IJN: [id number] / MTDD
[2019-10-13] MEDS: MONTELUKAST 10 MG TAB PO SCH (20:17)
[2019-10-13] MEDS: traZODone HCL 50 MG TAB PO SCH (20:17)
[2019-10-13] MEDS: methylPREDNISolone SOD SUCCI 40 MG/ML 1 ML VIAL IV SCH (20:17)
[2019-10-13] MEDS: SODIUM CHLORIDE 0.9% 1,000 ML IV SCH (20:18)
[2019-10-13] MEDS: AZELASTINE 137MCG/SPRAY NASAL SCH (20:20)
[2019-10-13 21:24] LABS: Glucose,Whole Blood 122 mg/dL (75-99)
[2019-10-14] MEDS: IPRATROPIUM-ALBUTEROL 3 ML NEB INHALATION PRN ×2 (04:31→08:09)
[2019-10-14] MEDS: methylPREDNISolone SOD SUCCI 40 MG/ML 1 ML VIAL IV SCH ×2 (06:05→12:52)
[2019-10-14] MEDS: ACETAMINOPHEN TAB 500 MG TAB PO PRN (06:10)
[2019-10-14 06:54] LABS: Glucose,Whole Blood 188 mg/dL (75-99)
[2019-10-14] MEDS: LIDOCAINE 5% PATCH TOPICAL SCH (08:06)
[2019-10-14] MEDS: AMOXIC-POT CLAV 875-125MG 1 EACH TAB PO SCH (08:07)
[2019-10-14] MEDS: IBUPROFEN 800 MG TAB PO SCH ×2 (08:07→12:52)
[2019-10-14] MEDS: CHOLECALCIFEROL 1,000 UNIT TAB PO SCH (08:07)
[2019-10-14] MEDS: INSULIN ASPART (NovoLOG) 100 UNIT/ML VIAL SQ SCH ×2 (08:08→11:50)
[2019-10-14] MEDS: LISINOPRIL 20 MG TAB PO SCH (08:08)
[2019-10-14] MEDS: ENOXAPARIN 40 MG/0.4 ML SYRINGE SQ SCH (08:08)
[2019-10-14] MEDS: BUDESONIDE 1 MG/2 ML NEBU INHALATION SCH (08:09)
[2019-10-14] MEDS: FORMOTEROL FUMARATE 20 MCG/2 ML NEBU INHALATION SCH (08:09)
[2019-10-14] MEDS: guaiFENesin 600 MG TABLET.ER PO PRN (08:13)
[2019-10-14 09:01] LABS: Basophils % (A) 0 %; Eosinophils % (A) 0 %; HCT 34.8 % (34.0-46.0); HGB 11.1 gm/dL (11.4-16.0); Hypochromasia Slight; Lymphocytes # (A) 0.4 k/uL (1.0-4.8); Lymphocytes % (A) 5 %; MCH 32.3 pg (25.0-35.0); MCV 101.1 fL (80.0-100.0); Macrocytosis Slight; Mean Platelet Volume 8.1; Monocytes # (A) 0.2 k/uL (0-1.0); Monocytes % (A) 2 %; Neutrophils # (A) 7.6 k/uL (1.3-7.7); Neutrophils % (A) 92 %; Platelet Count 412 k/uL (150-450); RBC 3.44 m/uL (3.80-5.40); RDW 13.7 % (11.5-15.5); WBC 8.2 k/uL (3.8-10.6)
[2019-10-14 09:11] LABS: African American GFR (CKD) >90 (>60 ml/min/1.73 sqM); Anion Gap 5 mmol/L; Blood Urea Nitrogen 30 mg/dL (7-17); Calcium 8.9 mg/dL (8.4-10.2); Carbon Dioxide 31 mmol/L (22-30); Chloride 104 mmol/L (98-107); Glucose 155 mg/dL (74-99); Non-African American GFR(CKD) 80 (>60 ml/min/1.73 sqM); Potassium 4.9 mmol/L (3.5-5.1); Sodium 140 mmol/L (137-145)
[2019-10-14 11:46] LABS: Glucose,Whole Blood 81 mg/dL (75-99)
[2019-10-14 13:19] VITALS: BP 138/67; PULSE 106; RESP 16; TEMP 97.3
--- NOTE | 2019-10-14 13:43 | P.PN ---
Subjective Progress Note Date: 10/14/19 Principal diagnosis: Acute exacerbation of chronic obstructive pulmonary disease The patient is seen today 10/14/2019 in follow-up on the regular medical floor. She is awake and alert in no acute distress. Her breathing is nearly back to her baseline. Rare nonproductive cough. Remainder 20 wheeze. Some dyspnea on exertion. She is maintaining O2 saturations in the 90s on 2 L/m per nasal cannula. She's been afebrile. Hemodynamically stable. White count 8.2. Hemoglobin 11.1. Creatinine 0.78. She's been maintained on DuoNeb inhalations, Pulmicort and Perforomist inhalations, IV Solu-Medrol, para antibiotics in the form of Augmentin. Objective - Vital Signs Vital signs: Vital Signs Temp 97.3 F L 10/14/19 13:18 Pulse 106 H 10/14/19 13:18 Resp 16 10/14/19 13:18 BP 138/67 10/14/19 13:18 Pulse Ox 93 L 10/14/19 13:18 Intake & Output 10/13/19 10/14/19 10/14/19 18:59 06:59 18:59 Intake Total 540 Balance 540 Intake: Oral 540 Other: Voiding Method Toilet # Voids 4 2 3 # Bowel Movements 1 1 0 - Exam GENERAL EXAM: Alert, pleasant morbidly obese 64-year-old female patient, and 2 L nasal cannula, comfortable in no apparent distress. On 2 L nasal cannula HEAD: Normocephalic. EYES: Normal reaction of pupils, equal size. NOSE: Clear with pink turbinates. THROAT: No erythema or exudates. NECK: No masses, no JVD. CHEST: No chest wall deformity. LUNGS: Equal air entry with faint, end expiratory wheeze, diminished. CVS: S1 and S2 normal with no audible murmur, regular rhythm. ABDOMEN: No hepatosplenomegaly, normal bowel sounds, no guarding or rigidity. SPINE: No scoliosis or deformity SKIN: No rashes CENTRAL NERVOUS SYSTEM: No focal deficits, tone is normal in all 4 extremities. EXTREMITIES: There is no peripheral edema. No clubbing, no cyanosis. Peripheral pulses are intact. - Labs CBC & Chem 7: 10/14/19 08:14 10/14/19 08:14 Labs: Abnormal Lab Results - Last 24 Hours (Table) 10/13/19 10/13/19 10/14/19 Range/Units 16:29 21:18 06:52 RBC (3.80-5.40) m/uL Hgb (11.4-16.0) gm/dL MCV (80.0-100.0) fL Lymphocytes # (1.0-4.8) k/uL Carbon Dioxide (22-30) mmol/L BUN (7-17) mg/dL Glucose (74-99) mg/dL POC Glucose (mg/dL) 207 H 122 H 188 H (75-99) mg/dL 10/14/19 10/14/19 Range/Units 08:14 08:14 RBC 3.44 L (3.80-5.40) m/uL Hgb 11.1 L (11.4-16.0) gm/dL MCV 101.1 H (80.0-100.0) fL Lymphocytes # 0.4 L (1.0-4.8) k/uL Carbon Dioxide 31 H (22-30) mmol/L BUN 30 H (7-17) mg/dL Glucose 155 H (74-99) mg/dL POC Glucose (mg/dL) (75-99) mg/dL Assessment and Plan Assessment: #1 Acute exacerbation of chronic obstructive pulmonary disease, complicated by purulent tracheobronchitis. Antibiotics in the form of Augmentin. #2 History of heavy chronic tobacco dependence. #3 Recent evaluation for possible lung transplantation at [facility]. #4 Acute on chronic hypoxemic respiratory failure secondary to above. #5 Hypertension. #6 Rheumatoid arthritis. #7 Colitis. 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 #10 Osteopenia. #11 History of DVT. Plan: The patient was seen and evaluated by Dr. Goodman. She is cleared for discharge from the pulmonary standpoint. Complete prednisone burst and taper. Complete course of antibiotics. Follow-up in our office in 1-2 weeks' time. She is encouraged to call sooner with any recurrence of symptoms or other questions or concerns. We will continue with the current treatment plan. We'll continue to follow and make further recommendations based on her clinical statu s. I, the cosigning physician, performed a history & physical examination of the patient. Lungs sounds with faint, end expiratory wheeze, diminished. Maintaining good O2 saturations in the 90s on 2 L/m per nasal cannula. I discussed the assessment and plan of care with my nurse practitioner, Symone Ohara. I attest to the above note as dictated by her.
--- NOTE | 2019-10-14 21:31 | DS ---
DISCHARGE SUMMARY DATE OF SERVICE: 10/14/2019. FINAL DIAGNOSES: 1. Chronic obstructive pulmonary disease acute exacerbation with acute purulent tracheobronchitis with bronchopneumonia possibly gram-negative. 2. Mild renal injury secondary to dehydration, prerenal renal failure, acute renal failure. 3. Hypertension. 4. Hypoglycemia. 5. Deep vein thrombosis prophylaxis. 6. Anemia, normocytic anemia of chronic disease. 7. Increased random blood sugar, possibly secondary to steroids. 8. History of deep vein thrombosis. 9. History of pneumonia. 10.History of rheumatoid arthritis. 11.History of colitis. 12.History of osteopenia. 13.History of cancer of the appendix. 14.Chronic hypoxic respiratory failure on 2 L nasal cannula. 15.History of vulvar cancer. 16.History of bowel resection. 17.History of partial vulvectomy in 2000. 18.History of colonoscopy. 19.attention-deficit disorder/attention-deficit/hyperactivity disorder/ anxiety. 20.Remote history of nicotine dependence. DISCHARGE DISPOSITION: The patient will be discharged in stable condition with guarded prognosis. Total time taken 35 minutes. HISTORY OF PRESENT ILLNESS: This 64-year-old woman with a past medical history of multiple medical problems was admitted with COPD and as well as pneumonia. The patient given IV antibiotics and the patient was extremely short of breath. The patient apparently also being worked up for possible lung transplant at [facility]. The patient was monitored closely and the patient improved significantly with medical treatment. Please refer to Dr. Goodman's notes for further information. On exam, vitals are stable. Cardiovascular: S1, S2. Bilateral scattered rhonchi and crackles. ABDOMEN is soft. Nervous system: No focal deficits. DISCHARGE ADVICE AND MEDICATIONS: 1. Diet is cardiac diet. 2. Activity limited until followup. 3. Follow up with primary physician as mentioned. 4. Follow up with Dr. Goodman 2-3 days. DISCHARGE MEDICATIONS: 1. Astepro 1 spray nasal q.h.s. 2. Benazepril 20 mg p.o. daily. 3. Multivitamins 1 p.o. daily. 4. Daliresp 500 mcg p.o. q.h.s. 5. Fluticasone nasal spray 1 spray each nostril. 6. Lasix 40 mg daily p.r.n. 7. Motrin 800 mg p.o. t.i.d. 8. Mucinex 1200 mg p.o. q.i.d. 9. Perforomist 20 mcg b.i.d. 10.Pulmicort 0.5 mg b.i.d. 11.Sudafed p.r.n. 12.Tessalon Perles 100 mg p.o. t.i.d. 13.Trazodone 50 mg q.h.s. 14.Tylenol p.r.n. 15.Vitamin D3 2000 daily. 16.Yupelira 1 vial inhalation. 17.Zithromax 500 mg p.o. daily. 18.Augmentin 875 mg p.o. b.i.d. for 3 days. 19.DuoNeb q.i.d. and p.r.n. 20.Lidoderm patch. 21.Prednisone taper 40 mg daily for 3 days, 30 for 3 days, 20 for 3 days. 10 for 3 days. 22.Requip 0.5 mg q.h.s. 23.Singulair 10 mg q.h.s. Once again the patient being discharged in stable condition with guarded prognosis. MMODL / IJN: [id number] /
== END 2019-10-14 14:29 | disposition home or self-care (01) | DRG 190 ==
LOC: EC 16:23 → 4MS4W 20:36 → 6NMEDSUR 10-12 07:29
PROVIDERS: ADMIT Hospitalist; ATTEND Hospitalist
DX: J44.0 Chronic obstructive pulmonary disease with (acute) lower respiratory infection (principal); J15.6 Pneumonia due to other Gram-negative bacteria; J96.21 Acute and chronic respiratory failure with hypoxia; N17.9 Acute kidney failure, unspecified; J44.1 Chronic obstructive pulmonary disease with (acute) exacerbation; J20.9 Acute bronchitis, unspecified; D63.8 Anemia in other chronic diseases classified elsewhere; E16.2 Hypoglycemia, unspecified; E86.0 Dehydration; F41.9 Anxiety disorder, unspecified; F90.9 Attention-deficit hyperactivity disorder, unspecified type; G25.81 Restless legs syndrome; I11.0 Hypertensive heart disease with heart failure; I50.9 Heart failure, unspecified; K52.9 Noninfective gastroenteritis and colitis, unspecified; M06.9 Rheumatoid arthritis, unspecified; M85.80 Other specified disorders of bone density and structure, unspecified site; Z79.899 Other long term (current) drug therapy; Z80.0 Family history of malignant neoplasm of digestive organs; Z80.49 Family history of malignant neoplasm of other genital organs; Z82.5 Family history of asthma and other chronic lower respiratory diseases; Z85.038 Personal history of other malignant neoplasm of large intestine; Z85.44 Personal history of malignant neoplasm of other female genital organs; Z86.718 Personal history of other venous thrombosis and embolism; Z87.01 Personal history of pneumonia (recurrent); Z87.891 Personal history of nicotine dependence; Z90.2 Acquired absence of lung [part of]; Z90.49 Acquired absence of other specified parts of digestive tract; Z90.710 Acquired absence of both cervix and uterus; Z90.721 Acquired absence of ovaries, unilateral; Z96.651 Presence of right artificial knee joint; Z99.81 Dependence on supplemental oxygen; Z76.82 Awaiting organ transplant status; Z79.1 Long term (current) use of non-steroidal anti-inflammatories (NSAID); Z79.51 Long term (current) use of inhaled steroids; Z88.5 Allergy status to narcotic agent; Z88.8 Allergy status to other drugs, medicaments and biological substances; R73.9 Hyperglycemia, unspecified; T38.0X5A Adverse effect of glucocorticoids and synthetic analogues, initial encounter; E66.01 Morbid (severe) obesity due to excess calories; Z68.29 Body mass index [BMI] 29.0-29.9, adult
CPT/HCPCS: 36415; 71046; 80048; 80053; 83735; 83880; 84484; 85025; 85610; 85730; 87493; 93005; 94640; 94760; 96360; 96361; 99285

== ENCOUNTER → 2019-10-27 | Outpatient (CLI) | payer MEDICARE, OTHER ==
[2019-10-27 17:16] LABS: Basophils % (A) 0 %; Eosinophils % (A) 0 %; HCT 37.3 % (34.0-46.0); HGB 11.7 gm/dL (11.4-16.0); Lymphocytes # (A) 1.2 k/uL (1.0-4.8); Lymphocytes % (A) 7 %; MCH 31.1 pg (25.0-35.0); MCHC 31.3 g/dL (31.0-37.0); MCV 99.4 fL (80.0-100.0); Macrocytosis Slight; Mean Platelet Volume 8.1; Monocytes # (A) 0.6 k/uL (0-1.0); Monocytes % (A) 3 %; Neutrophils # (A) 15.5 k/uL (1.3-7.7); Neutrophils % (A) 89 %; Platelet Count 239 k/uL (150-450); RBC 3.76 m/uL (3.80-5.40); RDW 14.5 % (11.5-15.5); WBC 17.4 k/uL (3.8-10.6)
--- NOTE | 2019-10-27 17:47 | XR ---
EXAMINATION TYPE: XR chest 2V DATE OF EXAM: 10/27/2019 COMPARISON: 10/09/2019 HISTORY: COPD. Short of breath. TECHNIQUE: FINDINGS: There is no heart failure nor confluent pneumonic infiltrate. There is some coarsening of t he lung markings at both lung bases. There is anterior wedging of multiple thoracic vertebra up to 50 %. There is no pleural effusion. IMPRESSION: Mild fibrotic changes at the lung bases. Multiple old thoracic compression fractures. No acute lung disease. No significant change.
[2019-10-28 00:32] LABS: Anion Gap 8.6 mmol/L (4.00-12.00); Calcium 9.8 mg/dL (8.7-10.3); Carbon Dioxide 30.4 mmol/L (21.6-31.8); Non-African American GFR(CKD) 58.7 (60.0-200.0); Potassium 5.4 mmol/L (3.5-5.5)
== END | disposition home or self-care (01) ==
LOC: LABWHC1 16:15
PROVIDERS: ATTEND Family Medicine
DX: J84.10 Pulmonary fibrosis, unspecified (principal); J44.9 Chronic obstructive pulmonary disease, unspecified; Z87.81 Personal history of (healed) traumatic fracture
CPT/HCPCS: 36415; 71046; 80048; 85025

== ENCOUNTER 2019-11-28 08:28 | Day surgery (SDC) | payer MEDICARE, OTHER ==
[2019-11-26 13:51] VITALS: BMI 33.4
--- NOTE | 2019-11-28 05:07 | HP ---
HISTORY AND PHYSICAL CHIEF COMPLAINT: Fluid in both ears. HISTORY OF THE PRESENT ILLNESS: This patient is a 64-year-old female who was recently seen in my office complaining of having a plugged sensation in both ears. 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 It was therefore recommended that the patient undergo a bilateral myringotomy with insertion of ventilation tubes under IV sedation. PAST MEDICAL HISTORY: Past medical history reveals that the patient has allergies to DARVON and REMICADE. Her current medications include: 1. BuSpar. 2. Ipratropium. 3. Albuterol. 4. Singulair. 5. Zofran. 6. Flonase. 7. Motrin. 8. Astelin nasal spray. 9. Trazodone. 10.Benazepril. REVIEW OF SYSTEMS: CARDIOVASCULAR: Is positive for hypertension. RESPIRATORY: Is positive for COPD/emphysema. GASTROINTESTINAL: Is positive for GERD, gastroesophageal reflux disorder. MUSCULOSKELETAL: Is positive for osteoarthritis. The remainder of the review of systems is unremarkable. PHYSICAL EXAMINATION: This patient is a 64-year-old female who is alert and cooperative. HEENT EXAMINATION: Patient is normocephalic. Tympanic membranes are dull bilaterally with fluid in both middle ear spaces. Pupils are equal, round, and reactive to light and accommodation. Extraocular movements are within normal limits. Intranasal examination reveals moderate septal deviation with compensatory hypertrophy of the inferior turbinates and a moderate amount of mucus on the mucous membranes and draining down the posterior pharynx. Examination of the oropharynx, cranial nerves 2 through 12 and the remainder of the head and neck exam are within normal limits. CHEST/CARDIOVASCULAR: Both lung guzman are clear to percussion and auscultation. Patient is in regular sinus rhythm. S1 and S2 are present without evidence of any murmurs, S3s or S4s. ABDOMEN: There is no evidence any masses, megaly or tenderness. The abdomen is soft. Skin is unremarkable. Musculoskeletal and neurological are within normal limits. PELVIC/RECTAL EXAM: The pelvic, rectal exam is deferred at this time because the patient has this done on a regular basis at her family physician's office. The remainder of physical exam is unremarkable. IMPRESSION: Chronic bilateral serous otitis media. PLAN: The patient is scheduled to undergo a bilateral myringotomy with insertion of ventilation tubes under IV sedation with MAC in the a.m. ATTENTION RNS IN THE PRE-SURGICAL AREA: I have not ordered any pre-surgical prophylactic antibiotics for this patient. If the pharmacy department sends any pre- surgical prophylactic antibiotics to the pre-surgical area for this patient, that order should be cancelled and the medication should be returned to the pharmacy department. Please make sure that the patient's account is credited appropriately. I have discussed the risks, benefits and alternative therapies for the above-mentioned procedure and for both sedation/analgesia as well as necessary blood product administration, if indicated, as they pertain to this patient. The patient has indicated his or her understanding and acceptance of the risks and procedures discussed. MMODL / IJN: [id number] /
--- NOTE | 2019-11-28 05:14 | HP ---
HISTORY AND PHYSICAL ADDENDUM TO HISTORY AND PHYSICAL: PAST MEDICAL HISTORY/SURGERY HISTORY: The patient's previous surgeries include hysterectomy, appendectomy, partial colectomy, right total knee replacement, LASIK surgery, bilateral cataract surgery, colonoscopy surgery and removal of genital warts. ZAHRA / TYEN: [id number] /
[~2019-11-28 08:28] MED LIST changes: +DEXAMETHASONE SOD PHOSPHATE 10 MG/ML 1 ML VIAL IV ONE; +HYDROmorphone 0.5 MG/0.5 ML SYRINGE IVP PRN; +LACTATED RINGERS 1,000 ML IV SCH; +MIDAZOLAM 2 MG/2 ML VIAL IV PRN; +ONDANSETRON 4 MG/2 ML VIAL IVP ONE; +Pre Op ABX Message 1 EACH MISC MISCELLANE ONE; -SODIUM CHLORIDE 0.9% 500 ML 500 ML in EMPTY BAG 1 BAG IV PRN; -ZOLEDRONIC ACID 5 MG in SODIUM CHLORIDE 0.9% 100 ML IV NR
[2019-11-28] MEDS ORDERED: LIDOCAINE 1% 20 ML VIAL (10MG/ML) FOR IV START INTRADERMA ONE (09:31)
[2019-11-28 09:41] LABS: Glucose,Whole Blood 95 mg/dL (75-99)
[2019-11-28] MEDS ORDERED: OFLOXACIN 0.3% OTIC DROPS 5 ML BTL BOTH EARS ONE (10:04)
[2019-11-28] MEDS ORDERED: PROPOFOL 10 MG/ML 20 ML VIAL IV ONE (10:09)
[2019-11-28] MEDS ORDERED: ePHEDrine SULFATE/0.9% NACL/PF 50 MG/5 ML SYRINGE IV ONE (10:09)
[2019-11-28] MEDS ORDERED: MIDAZOLAM 2 MG/2 ML VIAL ONE (10:09)
[2019-11-28] MEDS ORDERED: PHENYLEPHRINE-0.9% NACL SYG 1 MG/10 ML SYRINGE ONE (10:09)
[2019-11-28] MEDS ORDERED: fentaNYL (PF) 50 MCG/ML 2 ML AMP ONE (10:09)
[2019-11-28] MEDS ORDERED: LIDOCAINE 1% INJ 10MG/ML (20 ML MDV) ONE (10:09)
[2019-11-28 10:57] VITALS: TEMP 97.5
[2019-11-28 11:05] VITALS: RESP 16
[2019-11-28 11:16] VITALS: PULSE 100
[2019-11-28 11:28] VITALS: BP 112/73
--- NOTE | 2019-11-30 08:06 | OP ---
OPERATIVE REPORT DATE OF SURGERY: 11/28/2019 PREOPERATIVE DIAGNOSIS: Chronic bilateral serous otitis media. POSTOPERATIVE DIAGNOSIS: Chronic bilateral serous otitis media. ANESTHESIA: General. OPERATIVE PROCEDURE: Bilateral myringotomy with insertion of Morse type ventilation tubes. OPERATING SURGEON: Dr. Tabares. COMPLICATIONS: None. PROCEDURE IN DETAIL: The patient was placed on the Operating table in the supine position after uneventful induction and IV sedation, satisfactory general anesthesia was obtained. Next, the operating microscope was brought into position over the patient's right ear where after insertion of a #3 aural speculum, the external canal was cleansed of all wax and debris. The myringotomy knife was used to make an incision in the anterior inferior quadrant of the right tympanic membrane. The middle ear space was suctioned free of all fluid and a 1.1 mm Rosalva bobbin ventilation tube was inserted without any difficulty. Attention was then directed to the left ear where the same procedure was carried out using the operating microscope, #3 aural speculum, the external auditory canal was cleansed of all wax and debris. The myringotomy knife was used to make an incision in the anterior inferior quadrant of the left tympanic membrane and the middle ear space was suctioned free of all fluid. A 1.1 mm Rosalva bobbin ventilation tube was inserted without any difficulty. At this point, the procedure was terminated. There were no intraoperative complications. The patient tolerated the procedure well and was returned to the Recovery Room in satisfactory condition. MMODL / IJN: [id number] /
== END 2019-11-28 11:50 | disposition home or self-care (01) ==
LOC: OR 08:28
PROVIDERS: ATTEND Otolaryngology
DX: H65.23 Chronic serous otitis media, bilateral (principal); H91.90 Unspecified hearing loss, unspecified ear; M06.9 Rheumatoid arthritis, unspecified; I10 Essential (primary) hypertension; J43.9 Emphysema, unspecified; K21.9 Gastro-esophageal reflux disease without esophagitis; M19.90 Unspecified osteoarthritis, unspecified site; Z88.5 Allergy status to narcotic agent; Z88.8 Allergy status to other drugs, medicaments and biological substances; Z87.891 Personal history of nicotine dependence; Z86.718 Personal history of other venous thrombosis and embolism; Z79.1 Long term (current) use of non-steroidal anti-inflammatories (NSAID); Z79.51 Long term (current) use of inhaled steroids; Z79.899 Other long term (current) drug therapy; Z90.710 Acquired absence of both cervix and uterus; Z90.49 Acquired absence of other specified parts of digestive tract; Z96.651 Presence of right artificial knee joint; Z98.41 Cataract extraction status, right eye; Z98.42 Cataract extraction status, left eye; Z98.890 Other specified postprocedural states
CPT/HCPCS: 69436; J2250; J1100; J2405; J2001; J3010; J2370; J2704

== ENCOUNTER → 2019-12-01 | Outpatient (CLI) | payer MEDICARE, OTHER ==
--- NOTE | 2019-12-01 16:08 | CT ---
EXAMINATION TYPE: CT chest w con DATE OF EXAM: 12/01/2019 COMPARISON: 04/19/2018 HISTORY: Chronic obstructive pulmonary disease. CT DLP: 587 mGycm Automated exposure control for dose reduction was used. CONTRAST: CT scan of the chest is performed with IV Contrast, patient injected with 100 mL of Isovue 300. FINDINGS: LUNGS: The lungs are grossly clear, there is no concerning parenchymal mass or nodule identified. Digna ear parenchymal scar at the right lung base. There is no pleural effusion or pneumothorax seen. The tracheobronchial tree is patent. MEDIASTINUM: There are no greater than 1 cm hilar or mediastinal lymph nodes. No pericardial effusi on is seen. Thoracic aorta is of normal caliber. The heart is not enlarged. UPPER ABDOMEN: No significant abnormality appreciated. OTHER: No additional significant abnormality is seen. IMPRESSION: No significant abnormality appreciated at this time.
== END | disposition home or self-care (01) ==
LOC: RADCTMAIN 13:50
PROVIDERS: ATTEND Internal Medicine Critical Care Medicine
DX: J44.9 Chronic obstructive pulmonary disease, unspecified (principal)
CPT/HCPCS: 82565; 84520; 71260; 36415; Q9967

== ENCOUNTER → 2019-12-02 | Outpatient (CLI) | payer MEDICARE, OTHER ==
[2019-12-02 14:29] LABS: INR 0.9 (<1.2); Prothrombin Time 9.3 sec (9.0-12.0)
[2019-12-02 14:34] LABS: Partial Thromboplastin Time 21.7 sec (22.0-30.0)
== END | disposition home or self-care (01) ==
LOC: LABWHC1 13:18
PROVIDERS: ATTEND Internal Medicine Pulmonary Disease
DX: D68.9 Coagulation defect, unspecified (principal)
CPT/HCPCS: 36415; 85610; 85730

== ENCOUNTER 2019-12-12 13:20 | Inpatient (IN) | payer MEDICARE, OTHER ==
[2019-12-12] MEDS ORDERED: ALBUTEROL NEBULIZED 2.5 MG/3 ML INHALATION STA (13:38)
[2019-12-12] MEDS ORDERED: IPRATROPIUM 0.5 MG/2.5 ML NEBU INHALATION STA (13:38)
[2019-12-12] MEDS ORDERED: methylPREDNISolone SOD SUCCI 125 MG/2 ML VIAL IV STA (13:38)
--- NOTE | 2019-12-12 13:46 | ED ---
General Adult HPI - General Chief complaint: Shortness of Breath Stated complaint: DOMI Time Seen by Provider: 12/12/19 13:30 Source: patient, EMS, RN notes reviewed, old records reviewed Mode of arrival: EMS Limitations: no limitations - History of Present Illness Initial comments: This is a 64-year-old female presents emergency Department complaining of difficulty breathing times a week to 2 weeks. Patient states she has bad COPD. Patient states the breathing is gotten slowly worse over that time. Patient denies any fever chills. Patient denies any chest pain or palpitations. Patient states she saw her vice president for instruction today but the symptoms have worsened. Patient states she is coughing but not coughing up a lot of sputum. Patient denies any history of pulmonary fibrosis. Patient denies any lightheadedness or dizziness. Patient denies any dominant be pieces nausea vomiting. - Related Data Home Medications Medication Instructions Recorded Confirmed Benazepril HCl 20 mg PO DAILY 01/24/16 12/12/19 Budesonide [Pulmicort] 0.5 mg INHALATION RT-BID 04/02/18 12/12/19 Formoterol Fumarate [Perforomist] 20 mcg INHALATION RT-BID 04/02/18 12/12/19 Multivit-Min/FA/Lycopen/Lutein 1 tab PO DAILY 04/19/18 12/12/19 [Centrum Silver Tablet] guaiFENesin [Mucinex] 1,200 mg PO Q12HR PRN 04/19/18 12/12/19 Fluticasone Nasal [place] [Flonase 1 spray EA NOSTRIL DAILY PRN 03/12/19 12/12/19 Nasal [place]] Ibuprofen [Motrin] 800 mg PO TID PRN 03/12/19 12/12/19 Acetaminophen [Tylenol Extra 500 mg PO TID PRN 10/09/19 12/12/19 Strength] Azelastine HCl [Astepro] 1 spray NASAL HS 10/09/19 12/12/19 Benzonatate [Tessalon Perles] 100 mg PO TID PRN 10/09/19 12/12/19 Furosemide [Lasix] 40 mg PO DAILY PRN 10/09/19 12/12/19 Roflumilast [Daliresp] 500 mcg PO HS 10/09/19 12/12/19 Yupelri 175mcg/3ml 1 vial INHALATION DAILY@1730 10/09/19 12/12/19 traZODone HCL 75 mg PO HS 10/09/19 12/12/19 Ondansetron [Zofran] 4 mg PO Q12HR PRN 11/26/19 12/12/19 ALPRAZolam [Xanax] 0.5 mg PO TID PRN 12/12/19 12/12/19 Albuterol Inhaler [Ventolin Hfa 1 - 2 puff INHALATION RT-QID PRN 12/12/19 12/12/19 Inhaler] Benzedrex 1 dose EA NOSTRIL Q4H PRN 12/12/19 12/12/19 Ofloxacin 0.3% Ophth Soln [Ocuflox 5 drops BOTH EARS BID 12/12/19 12/12/19 Ophth Soln] Pseudoephedrine HCl [Sudafed 240 mg PO DAILY PRN 12/12/19 12/12/19 24-Hour] Sulfamethox-Tmp 800-160Mg [Bactrim 1 tab PO Q12H 12/12/19 12/12/19 DS 800-160 mg] Triamcinolone 0.1% Ointment 1 applic TOPICAL BID 12/12/19 12/12/19 [Kenalog 0.1% Ointment] Previous Rx's Medication Instructions Recorded Montelukast [Singulair] 10 mg PO HS #30 tab 04/12/18 Sodium Chloride 0.65% Nasal [Deep 2 spray NASAL QID PRN spray 04/25/18 Sea (Saline)] Ipratropium-Albuterol Nebulize 3 ml INHALATION RT-QID #120 10/14/19 [Duoneb 0.5 mg-3 mg/3 ml Soln] Allergies Allergy/AdvReac Type Severity Reaction Status Date / Time infliximab [From Remicade] Allergy Dyspnea/HIV Verified 12/12/19 14:17 ES adhesive tape AdvReac "is hard Verified 12/12/19 14:17 on skin" Review of Systems ROS Statement: Those systems with pertinent positive or pertinent negative responses have been documented in the HPI. ROS Other: All systems not noted in ROS Statement are negative. Past Medical History Past Medical History: Cancer, COPD, Deep Vein Thrombosis (DVT), Hypertension, Pneumonia, Rheumatoid Arthritis (RA) Additional Past Medical History / Comment(s): hearing difficulty currently, colitis, osteopenia, hx cancer of appendix, uses oxygen 2L continuous, waiting for lung transplant due to COPD. 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 chronic back pain, restless leg, History of Any Multi-Drug Resistant Organisms: None Reported Past Surgical History: Appendectomy, Bowel Resection, Hysterectomy, Joint Replacement Additional Past Surgical History / Comment(s): Right knee replacement, partial vulvectomy in 2000, EGD/colonoscopy, lasik eye surgery, right colectomy. Colonoscopy 2017. pain procedure at [facility] with Dr Ty Past Anesthesia/Blood Transfusion Reactions: No Reported Reaction Additional Past Anesthesia/Blood Transfusion Reaction / Comment(s): states is not supposed to have general anesthesia R/T awaiting lung transplant Past Psychological History: ADD/ADHD, Anxiety Smoking Status: Former smoker Past Alcohol Use History: None Reported Past Drug Use History: Marijuana - Past Family History Father Family Medical History: Cancer, COPD Additional Family Medical History / Comment(s): COLON cancer Mother Family Medical History: Cancer Additional Family Medical History / Comment(s): ESOPHAGUS cancer Sister(s) Family Medical History: Cancer Additional Family Medical History / Comment(s): CERVICAL cancer General Exam - General Exam Comments Initial Comments: GENERAL: Patient is well-developed and well-nourished. Patient is nontoxic and well- hydrated and is in moderate distress. ENT: Neck is soft and supple. No significant lymphadenopathy is noted. Oropharynx is clear. Moist mucous membranes. Neck has full range of motion without eliciting any pain. EYES: The sclera were anicteric and conjunctiva were pink and moist. Extraocular movements were intact and pupils were equal round and reactive to light. Eyelids were unremarkable. PULMONARY: Decreased breath sounds diffusely some crackles in the bases right greater than left and diffuse wheezing. CARDIOVASCULAR: There is a regular rate and rhythm without any murmurs gallops or rubs. ABDOMEN: Soft and nontender with normal bowel sounds. SKIN: Skin is clear with no lesions or rashes and otherwise unremarkable. NEUROLOGIC: Patient is alert and oriented x3. Cranial nerves II through XII are grossly intact. Motor and sensory are also intact. Normal speech, volume and content. Symmetrical smile. MUSCULOSKELETAL: Normal extremities with adequate strength and full range of motion. No lower extremity swelling or edema. No calf tenderness. LYMPHATICS: No significant lymphadenopathy is noted PSYCHIATRIC: Normal psychiatric evaluation. Limitations: no limitations Course Vital Signs 12/12/19 12/12/19 12/12/19 13:25 13:29 13:30 Temperature 98.5 F Pulse Rate 123 H 121 H Respiratory 32 H 22 Rate Blood Pressure 154/83 150/84 O2 Sat by Pulse 91 L 93 L Oximetry 12/12/19 12/12/19 12/12/19 13:41 13:56 14:00 Temperature Pulse Rate 112 H 110 H 140 H Respiratory 31 H Rate Blood Pressure 154/83 O2 Sat by Pulse 97 Oximetry 12/12/19 12/12/19 14:15 14:32 Temperature Pulse Rate 130 H 132 H Respiratory Rate Blood Pressure O2 Sat by Pulse Oximetry Medical Decision Making - Medical Decision Making EKG shows sinus tachycardia at 122 bpm LA interval is 120 QRS is 70 QT interval 02 QTC is 4:30. EKG shows no ST segment elevation or depression. Chest x-ray shows no acute abnormality. I determined the patient to have bronchitis at 4:15. Patient received Rocephin and will be admitted for COPD exacerbation with bronchitis and be treated with antibiotics. Patient had 3 breathing treatments and steroids in the emergency department and she did improve but it was not back to her baseline. I put the patient on BiPAP and that didn't seem to improve her breathing. - Lab Data Result diagrams: 12/12/19 13:45 12/12/19 14:30 Lab Results 12/12/19 12/12/19 12/12/19 Range/Units 13:45 13:45 13:45 WBC 13.9 H (3.8-10.6) k/uL RBC 3.71 L (3.80-5.40) m/uL Hgb 11.8 (11.4-16.0) gm/dL Hct 37.7 (34.0-46.0) % MCV 101.4 H (80.0-100.0) fL MCH 31.7 (25.0-35.0) pg MCHC 31.3 (31.0-37.0) g/dL RDW 13.0 (11.5-15.5) % Plt Count 339 (150-450) k/uL Neutrophils % 90 % Lymphocytes % 7 % Monocytes % 2 % Eosinophils % 1 % Basophils % 1 % Neutrophils # 12.4 H (1.3-7.7) k/uL Lymphocytes # 1.0 (1.0-4.8) k/uL Monocytes # 0.2 (0-1.0) k/uL Eosinophils # 0.1 (0-0.7) k/uL Basophils # 0.1 (0-0.2) k/uL Manual Slide Review Performed Hypochromasia Slight Macrocytosis Slight PT (9.0-12.0) sec INR (<1.2) APTT (22.0-30.0) sec Sodium (137-145) mmol/L Potassium (3.5-5.1) mmol/L Chloride (98-107) mmol/L Carbon Dioxide (22-30) mmol/L Anion Gap mmol/L BUN (7-17) mg/dL Creatinine (0.52-1.04) mg/dL Est GFR (CKD-EPI)AfAm (>60 ml/min/1.73 sqM) Est GFR (CKD-EPI)NonAf (>60 ml/min/1.73 sqM) Glucose (74-99) mg/dL Plasma Lactic Acid Osmani 1.6 (0.7-2.0) mmol/L Calcium (8.4-10.2) mg/dL Magnesium (1.6-2.3) mg/dL Total Bilirubin (0.2-1.3) mg/dL AST (14-36) U/L ALT (4-34) U/L Alkaline Phosphatase (38-126) U/L Troponin I (0.000-0.034) ng/mL Total Protein (6.3-8.2) g/dL Albumin (3.5-5.0) g/dL Influenza Type A RNA Not Detected (Not Detectd) Influenza Type B (PCR) Not Detected (Not Detectd) 12/12/19 12/12/19 12/12/19 Range/Units 14:30 14:30 14:30 WBC (3.8-10.6) k/uL RBC (3.80-5.40) m/uL Hgb (11.4-16.0) gm/dL Hct (34.0-46.0) % MCV (80.0-100.0) fL MCH (25.0-35.0) pg MCHC (31.0-37.0) g/dL RDW (11.5-15.5) % Plt Count (150-450) k/uL Neutrophils % % Lymphocytes % % Monocytes % % Eosinophils % % Basophils % % Neutrophils # (1.3-7.7) k/uL Lymphocytes # (1.0-4.8) k/uL Monocytes # (0-1.0) k/uL Eosinophils # (0-0.7) k/uL Basophils # (0-0.2) k/uL Manual Slide Review Hypochromasia Macrocytosis PT 9.2 (9.0-12.0) sec INR 0.9 (<1.2) APTT 23.4 (22.0-30.0) sec Sodium 134 L (137-145) mmol/L Potassium 5.2 H (3.5-5.1) mmol/L Chloride 96 L (98-107) mmol/L Carbon Dioxide 28 (22-30) mmol/L Anion Gap 10 mmol/L BUN 19 H (7-17) mg/dL Creatinine 0.87 (0.52-1.04) mg/dL Est GFR (CKD-EPI)AfAm 81 (>60 ml/min/1.73 sqM) Est GFR (CKD-EPI)NonAf 70 (>60 ml/min/1.73 sqM) Glucose 182 H (74-99) mg/dL Plasma Lactic Acid Osmani (0.7-2.0) mmol/L Calcium 8.7 (8.4-10.2) mg/dL Magnesium 1.7 (1.6-2.3) mg/dL Total Bilirubin 0.2 (0.2-1.3) mg/dL AST 25 (14-36) U/L ALT 15 (4-34) U/L Alkaline Phosphatase 52 (38-126) U/L Troponin I <0.012 (0.000-0.034) ng/mL Total Protein 6.6 (6.3-8.2) g/dL Albumin 4.0 (3.5-5.0) g/dL Influenza Type A RNA (Not Detectd) Influenza Type B (PCR) (Not Detectd) 12/12/19 Range/Units 15:07 WBC (3.8-10.6) k/uL RBC (3.80-5.40) m/uL Hgb (11.4-16.0) gm/dL Hct (34.0-46.0) % MCV (80.0-100.0) fL MCH (25.0-35.0) pg MCHC (31.0-37.0) g/dL RDW (11.5-15.5) % Plt Count (150-450) k/uL Neutrophils % % Lymphocytes % % Monocytes % % Eosinophils % % Basophils % % Neutrophils # (1.3-7.7) k/uL Lymphocytes # (1.0-4.8) k/uL Monocytes # (0-1.0) k/uL Eosinophils # (0-0.7) k/uL Basophils # (0-0.2) k/uL Manual Slide Review Hypochromasia Macrocytosis PT (9.0-12.0) sec INR (<1.2) APTT 22.8 (22.0-30.0) sec Sodium (137-145) mmol/L Potassium (3.5-5.1) mmol/L Chloride (98-107) mmol/L Carbon Dioxide (22-30) mmol/L Anion Gap mmol/L BUN (7-17) mg/dL Creatinine (0.52-1.04) mg/dL Est GFR (CKD-EPI)AfAm (>60 ml/min/1.73 sqM) Est GFR (CKD-EPI)NonAf (>60 ml/min/1.73 sqM) Glucose (74-99) mg/dL Plasma Lactic Acid Osmani (0.7-2.0) mmol/L Calcium (8.4-10.2) mg/dL Magnesium (1.6-2.3) mg/dL Total Bilirubin (0.2-1.3) mg/dL AST (14-36) U/L ALT (4-34) U/L Alkaline Phosphatase (38-126) U/L Troponin I (0.000-0.034) ng/mL Total Protein (6.3-8.2) g/dL Albumin (3.5-5.0) g/dL Influenza Type A RNA (Not Detectd) Influenza Type B (PCR) (Not Detectd) Disposition Clinical Impression: COPD with acute exacerbation, Bronchitis Disposition: ADMITTED IP TO THIS HOSP Referrals: Gavin Riggs [Primary Care Provider] - 1-2 days Time of Disposition: 16:30
[2019-12-12] MEDS ORDERED: LORazepam 2 MG/ML INJ IV STA (13:57)
[2019-12-12 14:15] LABS: Basophils # (A) 0.1 k/uL (0-0.2); Basophils % (A) 1 %; Eosinophils # (A) 0.1 k/uL (0-0.7); Eosinophils % (A) 1 %; HCT 37.7 % (34.0-46.0); HGB 11.8 gm/dL (11.4-16.0); Hypochromasia Slight; Lymphocytes % (A) 7 %; MCH 31.7 pg (25.0-35.0); MCHC 31.3 g/dL (31.0-37.0); MCV 101.4 fL (80.0-100.0); Macrocytosis Slight; Mean Platelet Volume 9.3; Monocytes # (A) 0.2 k/uL (0-1.0); Monocytes % (A) 2 %; Neutrophils # (A) 12.4 k/uL (1.3-7.7); Neutrophils % (A) 90 %; Platelet Count 339 k/uL (150-450); RBC 3.71 m/uL (3.80-5.40); WBC 13.9 k/uL (3.8-10.6)
[2019-12-12 15:00] LABS: INR 0.9 (<1.2); Partial Thromboplastin Time 23.4 sec (22.0-30.0); Prothrombin Time 9.2 sec (9.0-12.0)
[2019-12-12 15:03] LABS: Calcium 8.7 mg/dL (8.4-10.2); Magnesium 1.7 mg/dL (1.6-2.3); Potassium 5.2 mmol/L (3.5-5.1); Total Bilirubin 0.2 mg/dL (0.2-1.3); Total Protein 6.6 g/dL (6.3-8.2)
--- NOTE | 2019-12-12 15:08 | XR ---
EXAMINATION TYPE: XR chest 2V DATE OF EXAM: 12/12/2019 COMPARISON: 10/27/2019 INDICATION: Difficulty breathing TECHNIQUE: Frontal and lateral views of the chest are obtained. FINDINGS: The heart size is normal. The pulmonary vasculature is normal. The lungs are clear. IMPRESSION: 1. No definite acute pulmonary process.
[2019-12-12] MEDS ORDERED: cefTRIAXone IN SWFI 1,000 MG/10 ML SYRINGE IVP STA (16:35)
[2019-12-12] MEDS ORDERED: VANCOMYCIN IV PER PHARMACY 1 EACH MISC MISCELLANE PRN (17:50)
[2019-12-12] MEDS ORDERED: FUROSEMIDE 40 MG TAB PO PRN (17:52)
[2019-12-12] MEDS ORDERED: ALPRAZolam 0.5 MG TAB PO PRN (17:52)
[2019-12-12] MEDS ORDERED: guaiFENesin 600 MG TABLET.ER PO PRN (17:52)
--- NOTE | 2019-12-12 17:56 | P.HPIM ---
History of Present Illness H&P Date: 12/12/19 The patient is a 64-year-old female with a PMH of COPD (currently awaiting lung transplant), who recently underwent a cardiac catheterization 10 days ago at [facility] in preparation for her lung transplant, extensive history of tobacco abuse, hypertension, and rheumatoid arthritis who presented to the ED with her sister for gradually worsening shortness of breath and cough. Upon presentation, her vitals included temperature 98.5, pulse 123, BP 154/83, saturating 93% on 4 L nasal cannula, and respiratory rate of 36. The patient was seen and evaluated at the bedside in the emergency room. She was on BiPAP and was somewhat lethargic after having received Ativan. History was partially obtained by the sister at the bedside. She reports that after the patient had returned from [facility] from her cardiac catheterization, the patient gradually developed shortness of breath with a cough productive of yellow phlegm. The patient was subsequently seen by Dr. Goodman in the clinic on 12/10 where she was prescribed oral steroids and Bactrim, which the patient was compliant with. The patient also reported chills at home though no documented fevers. The patient otherwise denied abdominal pain, dysuria, nausea, or vomiting. She underwent an extensive evaluation in the emergency room with chest x-ray showing no acute process with EKG showing sinus tachycardia at 122 bpm with no acute ST/T-wave changes noted. Laboratory evaluation revealed WBC count 13.9, hemoglobin 11.8, platelets 339, sodium 134, potassium 5.2, chloride 96, BUN 19, creatinine 0.87, glucose 182, troponin less than 0.012, and influenza negative. Patient is being admitted to the medicine service for further management of acute COPD exacerbation with a pulmonary consult. Review of Systems Pertinent positives and negatives as discussed in HPI, a complete review of systems was performed and all other systems are negative. Past Medical History Past Medical History: Cancer, COPD, Deep Vein Thrombosis (DVT), Hypertension, Pneumonia, Rheumatoid Arthritis (RA) Additional Past Medical History / Comment(s): hearing difficulty currently, colitis, osteopenia, hx cancer of appendix, uses oxygen 2L continuous, waiting for lung transplant due to COPD. 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 chronic back pain, restless leg, History of Any Multi-Drug Resistant Organisms: None Reported Past Surgical History: Appendectomy, Bowel Resection, Hysterectomy, Joint Replacement Additional Past Surgical History / Comment(s): Right knee replacement, partial vulvectomy in 2001, EGD/colonoscopy, lasik eye surgery, right colectomy. Colonoscopy 2017. pain procedure at [facility] with Dr Ty Past Anesthesia/Blood Transfusion Reactions: No Reported Reaction Additional Past Anesthesia/Blood Transfusion Reaction / Comment(s): states is not supposed to have general anesthesia R/T awaiting lung transplant Past Psychological History: ADD/ADHD, Anxiety Smoking Status: Former smoker Past Alcohol Use History: None Reported Past Drug Use History: Marijuana - Past Family History Father Family Medical History: Cancer, COPD Additional Family Medical History / Comment(s): COLON cancer Mother Family Medical History: Cancer Additional Family Medical History / Comment(s): ESOPHAGUS cancer Sister(s) Family Medical History: Cancer Additional Family Medical History / Comment(s): CERVICAL cancer Medications and Allergies Home Medications Medication Instructions Recorded Confirmed Type Benazepril HCl 20 mg PO DAILY 01/24/16 12/12/19 History Budesonide [Pulmicort] 0.5 mg INHALATION RT-BID 04/02/18 12/12/19 History Formoterol Fumarate [Perforomist] 20 mcg INHALATION RT-BID 04/02/18 12/12/19 History Montelukast [Singulair] 10 mg PO HS #30 tab 04/12/18 12/12/19 Rx Multivit-Min/FA/Lycopen/Lutein 1 tab PO DAILY 04/19/18 12/12/19 History [Centrum Silver Tablet] guaiFENesin [Mucinex] 1,200 mg PO Q12HR PRN 04/19/18 12/12/19 History Sodium Chloride 0.65% Nasal [Deep 2 spray NASAL QID PRN spray 04/25/18 12/12/19 Rx Sea (Saline)] Fluticasone Nasal [place] [Flonase 1 spray EA NOSTRIL DAILY PRN 03/12/19 12/12/19 History Nasal [place]] Ibuprofen [Motrin] 800 mg PO TID PRN 03/12/19 12/12/19 History Acetaminophen [Tylenol Extra 500 mg PO TID PRN 10/09/19 12/12/19 History Strength] Azelastine HCl [Astepro] 1 spray NASAL HS 10/09/19 12/12/19 History Benzonatate [Tessalon Perles] 100 mg PO TID PRN 10/09/19 12/12/19 History Furosemide [Lasix] 40 mg PO DAILY PRN 10/09/19 12/12/19 History Roflumilast [Daliresp] 500 mcg PO HS 10/09/19 12/12/19 History Yupelri 175mcg/3ml 1 vial INHALATION DAILY@1730 10/09/19 12/12/19 History traZODone HCL 75 mg PO HS 10/09/19 12/12/19 History Ipratropium-Albuterol Nebulize 3 ml INHALATION RT-QID #120 10/14/19 12/12/19 Rx [Duoneb 0.5 mg-3 mg/3 ml Soln] Ondansetron [Zofran] 4 mg PO Q12HR PRN 11/26/19 12/12/19 History ALPRAZolam [Xanax] 0.5 mg PO TID PRN 12/12/19 12/12/19 History Albuterol Inhaler [Ventolin Hfa 1 - 2 puff INHALATION RT-QID PRN 12/12/19 12/12/19 History Inhaler] Benzedrex 1 dose EA NOSTRIL Q4H PRN 12/12/19 12/12/19 History Ofloxacin 0.3% Ophth Soln [Ocuflox 5 drops BOTH EARS BID 12/12/19 12/12/19 History Ophth Soln] Pseudoephedrine HCl [Sudafed 240 mg PO DAILY PRN 12/12/19 12/12/19 History 24-Hour] Sulfamethox-Tmp 800-160Mg [Bactrim 1 tab PO Q12H 12/12/19 12/12/19 History DS 800-160 mg] Triamcinolone 0.1% Ointment 1 applic TOPICAL BID 12/12/19 12/12/19 History [Kenalog 0.1% Ointment] Allergies Allergy/AdvReac Type Severity Reaction Status Date / Time infliximab [From Remicade] Allergy Dyspnea/HIV Verified 12/12/19 14:17 ES adhesive tape AdvReac "is hard Verified 12/12/19 14:17 on skin" Physical Exam Vitals: Vital Signs Temp Pulse Resp BP Pulse Ox 12/12/19 16:00 124 H 24 122/50 94 L 12/12/19 15:30 125 H 24 100/67 95 12/12/19 15:00 25 H 153/77 12/12/19 14:32 132 H 12/12/19 14:30 134 H 26 H 118/90 12/12/19 14:15 130 H 12/12/19 14:00 140 H 31 H 154/83 97 12/12/19 13:56 110 H 12/12/19 13:41 112 H 12/12/19 13:30 121 H 22 150/84 12/12/19 13:29 98.5 F 123 H 32 H 154/83 93 L 12/12/19 13:25 91 L Intake and Output 12/12/19 12/12/19 12/12/19 06:59 14:59 22:59 Other: Weight 74.843 kg General: somewhat ill appearing F on BiPAP, appears older than stated age, obese Derm: no unusual rashes/lesions no unusual ecchymoses, warm, dry Head: atraumatic, normocephalic, symmetric Eyes: EOMI, no lid lag, anicteric sclera, pupils equal round reactive to light ENT: Nose and ears atraumatic, no thrush, no pharyngeal erythema Neck: No thyromegaly, no cervical lymphadenopathy, trachea midline, supple Mouth: no lip lesion, mucus membranes dry Cardiovascular: S1S2 reg, tachycardic, no murmur, positive posterior tibial pulse bilateral, no edema, capillary refill less than 2 seconds Lungs: Poor air entry greg with wheezing, scattered ronchi, no rales ,no accessory muscle use Abdominal: soft, obese, nontender to palpation, no guarding, no appreciable organomegaly, normal bowel sounds Ext: no gross muscle atrophy, no focal deficits noted Neuro: CN II-XI grossly intact, light touch intact all 4 extremities Psych: Alert, oriented to self, place, and time, appropriate affect, lethargic Results CBC & Chem 7: 12/12/19 13:45 12/12/19 14:30 Labs: Abnormal Lab Results - Last 24 Hours (Table) 12/12/19 12/12/19 Range/Units 13:45 14:30 WBC 13.9 H (3.8-10.6) k/uL RBC 3.71 L (3.80-5.40) m/uL MCV 101.4 H (80.0-100.0) fL Neutrophils # 12.4 H (1.3-7.7) k/uL Sodium 134 L (137-145) mmol/L Potassium 5.2 H (3.5-5.1) mmol/L Chloride 96 L (98-107) mmol/L BUN 19 H (7-17) mg/dL Glucose 182 H (74-99) mg/dL Assessment and Plan Plan: Shortness of breath likely due to acute COPD exacerbation with high suspicious for hospital acquired pneumonia (recent cardiac cath) -DuoNeb's, Solumedrol -Will start Vancomycin and Cefepime -Pulmonary consult -Check pro-calcitonin -C/w BiPAP for now MICHELLE -Likely due to dehydration -C/w gentle hydration and monitor BMP Macrocytosis without anemia -Monitor CBC for now -Check B12 and Folate Hyperkalemia -Possible due to dehydration -Monitor BMP DVT prophylaxis -Heparin The patient is admitted with an anticipated greater than 2 midnight stay for evaluation of acute COPD exacerbation CODE STATUS: Full Code Discussed with: Patient Anticipated discharge date: 2-[address]: Home A total of 40 minutes was spent on the care of this complex patient more than 50% of the time was spent in counseling and care coordination.
[2019-12-12] MEDS: methylPREDNISolone SOD SUCCI 125 MG/2 ML VIAL IV SCH (18:09)
[2019-12-12] MEDS: SODIUM CHLORIDE 0.9% 1,000 ML IV SCH (18:22)
[2019-12-12] MEDS ORDERED: VANCOMYCIN 1,500 MG in SODIUM CHLORIDE 0.9% 250 ML IVPB SCH (18:45)
[2019-12-12] MEDS: IPRATROPIUM-ALBUTEROL 3 ML NEB INHALATION SCH (18:58)
[2019-12-12] MEDS: CEFEPIME 2 GM in SODIUM CHLORIDE 0.9% 100 ML IVPB SCH (19:01)
--- NOTE | 2019-12-12 19:22 | P.PN ---
Progress Note - Text Progress Note Date: 12/12/19 Hospitalist Interval Note Called to see patient by nursing regarding shortness of breath and elevated respiratory rate. Arrived to the room patient with sternal retractions on BiPAP and hunched forward. Patient seen and examined at bedside. She complains of feeling very short of breath and wheezy, has been on BiPAP multiple times, states she feels as though she can't catch her breath and she is feeling more and more tired. Family present at bedside. They report that she is currently getting worked up for the lung transplant list at [facility]. Patient states she has never been intubated in the past however would be okay with intubation if necessary. Typically they follow with Dr. Goodman. Vital signs reviewed General: non toxic, no distress, appears at stated age Derm: warm, dry Head: atraumatic, normocephalic, symmetric Eyes: EOMI, no lid lag, anicteric sclera Mouth: no lip lesion, mucus membranes moist Cardiovascular: S1S2 tachy, no murmur, positive posterior tibial pulse bilateral, Lungs: decreased breath sounds bilateral with sternal retraction, on BiPAP, appears to have 3 word conversational dyspnea , Assessment/Plan: 1. Acute exacerbation of COPD with acute on chronic hypoxic hypercapnic respiratory failure -Continue with BiPAP -Stat ABG -Add from formetrol and budesonide to scheduled and when necessary DuoNeb -Discussed with Dr. Cade and will proceed with close monitoring -Continue with steroids -Sign out given to Dr. Porter
[2019-12-12] MEDS: FORMOTEROL FUMARATE 20 MCG/2 ML NEBU INHALATION SCH (19:36)
[2019-12-12] MEDS: BUDESONIDE 1 MG/2 ML NEBU INHALATION SCH (19:36)
[2019-12-12] MEDS ORDERED: SODIUM CHLORIDE 0.9% 500 ML 500 ML IV ONE (19:41)
[2019-12-12 21:06] LABS: Glucose,Whole Blood 153 mg/dL (75-99)
[2019-12-12] MEDS ORDERED: ROCURONIUM BROMIDE 10 MG/ML 5 ML VIAL IV ONE (21:43)
[2019-12-12] MEDS ORDERED: PROPOFOL 10 MG/ML 20 ML VIAL IV ONE (21:43)
[2019-12-12] MEDS: PROPOFOL 1,000 MG in EMPTY BAG 1 BAG IV SCH (22:33)
--- NOTE | 2019-12-12 22:35 | XR ---
EXAMINATION TYPE: XR chest 1V portable DATE OF EXAM: 12/12/2019 COMPARISON: Today HISTORY: Intubation TECHNIQUE: FINDINGS: Endotracheal tube is 3 cm from the rod. There is a small infiltrate lateral left lung ba se. There is no heart failure. Heart size is normal. There are no hilar masses. Trachea is midline. T here is nasogastric tube in the stomach. IMPRESSION: Small infiltrate left lower lobe unchanged. No heart failure seen. Endotracheal tube in g ood position.
[2019-12-12] MEDS ORDERED: NALOXONE 0.4 MG/ML 1 ML VIAL IV PRN (22:52)
[2019-12-12 23:08] LABS: ABG HCO3 26 mmol/L (21-25); ABG Oxygen Saturation 99.3 % (94-97); ABG PCO2 59 mmHg (35-45); ABG PH 7.25 (7.35-7.45); ABG PO2 134 mmHg (83-108); ABG TCO2 28 mmol/L (19-24)
[2019-12-12] MEDS: traZODone HCL 50 MG TAB PO SCH (23:09)
[2019-12-12] MEDS: OFLOXACIN 0.3% OPHTH DROPS 5 ML BOTTLE BOTH EARS SCH (23:09)
[2019-12-12 23:12] LABS: Allen Test Performed? no
[2019-12-12 23:14] LABS: ABG PH 7.14 (7.35-7.45); Allen Test Performed? Yes
[2019-12-12 23:15] LABS: ABG Base Excess 1.1 mmol/L; ABG HCO3 30 mmol/L (21-25); ABG PCO2 88 mmHg (35-45); ABG PO2 129 mmHg (83-108); ABG TCO2 33 mmol/L (19-24)
[2019-12-12 23:18] LABS: Allen Test Performed? Yes
[2019-12-12 23:20] LABS: ABG Base Excess -0.4 mmol/L; ABG HCO3 29 mmol/L (21-25); ABG PCO2 90 mmHg (35-45); ABG PH 7.12 (7.35-7.45); ABG PO2 62 mmHg (83-108); ABG TCO2 32 mmol/L (19-24)
[2019-12-12] MEDS: IPRATROPIUM-ALBUTEROL 3 ML NEB INHALATION PRN (23:54)
[2019-12-12 23:57] LABS: Glucose,Whole Blood 161 mg/dL (75-99)
[2019-12-13] MEDS: MONTELUKAST 10 MG TAB PO SCH ×2 (00:08→00:14)
[2019-12-13] MEDS: methylPREDNISolone SOD SUCCI 125 MG/2 ML VIAL IV SCH ×4 (00:21→18:09)
[2019-12-13] MEDS: HEPARIN SODIUM,PORCINE 5,000 UNIT/ML 1 ML VIAL SQ SCH ×3 (00:24→16:14)
[2019-12-13] MEDS: CEFEPIME 2 GM in SODIUM CHLORIDE 0.9% 100 ML IVPB SCH ×2 (00:26→08:37)
[2019-12-13] MEDS ORDERED: SODIUM CHLORIDE 0.9% 1,000 ML IV ONE ×2 (00:49→01:53)
[2019-12-13] MEDS: PROPOFOL 1,000 MG in EMPTY BAG 1 BAG IV SCH ×7 (01:07→22:16)
[2019-12-13 01:19] LABS: Amorphous Sediment,Urine Rare /hpf; Appearance,Urine Cloudy (Clear); Bilirubin,Urine Negative (Negative); Blood,Urine Trace (Negative); Color,Urine Yellow; Glucose,Urine (UA) Negative (Negative); Hyaline Casts,Urine 1 /lpf (0-2); Ketones,Urine Negative (Negative); Leukocyte Esterase,Urine Negative (Negative); Mucus,Urine Rare /hpf; Nitrite,Urine Negative (Negative); Protein,Urine 1+ (Negative); RBC,Urine 36 /hpf (0-5); Specific Gravity,Urine 1.027 (1.001-1.035); Squamous Epithelial Cell,Urine <1 /hpf (0-4); Urobilinogen,Urine <2.0 mg/dL (<2.0); WBC,Urine 2 /hpf (0-5)
[2019-12-13] MEDS: NOREPINEPHRINE 4 MG in SODIUM CHLORIDE 0.9% 250 ML IV SCH ×2 (02:21→21:09)
[2019-12-13] MEDS ORDERED: ACETAMINOPHEN IV (For NPO) 1,000 MG in EMPTY BAG 1 BAG IVPB PRN ×2 (03:26→03:33)
[2019-12-13] MEDS: IPRATROPIUM-ALBUTEROL 3 ML NEB INHALATION PRN (03:46)
[2019-12-13] MEDS: MORPHINE SULFATE 2 MG/ML SYRINGE IVP PRN ×4 (04:10→20:25)
[2019-12-13 05:15] LABS: Basophils % (A) 1 %; Eosinophils % (A) 0 %; HCT 24.2 % (34.0-46.0); Hypochromasia Slight; Lymphocytes # (A) 0.5 k/uL (1.0-4.8); Lymphocytes % (A) 7 %; MCH 31.6 pg (25.0-35.0); MCHC 30.4 g/dL (31.0-37.0); MCV 103.8 fL (80.0-100.0); Macrocytosis Slight; Mean Platelet Volume 8.4; Monocytes # (A) 0.2 k/uL (0-1.0); Monocytes % (A) 3 %; Neutrophils % (A) 88 %; Platelet Count 225 k/uL (150-450); RBC 2.34 m/uL (3.80-5.40); RDW 13.4 % (11.5-15.5); WBC 6.9 k/uL (3.8-10.6)
[2019-12-13 05:16] LABS: HGB 7.4 gm/dL (11.4-16.0)
[2019-12-13 05:23] LABS: ABG Base Excess -2.9 mmol/L; ABG HCO3 24 mmol/L (21-25); ABG Oxygen Saturation 98.7 % (94-97); ABG PCO2 51 mmHg (35-45); ABG PH 7.28 (7.35-7.45); ABG PO2 108 mmHg (83-108); ABG TCO2 26 mmol/L (19-24)
[2019-12-13 05:23] LABS: Calcium 6.9 mg/dL (8.4-10.2); Magnesium 1.6 mg/dL (1.6-2.3); Phosphorus 2.3 mg/dL (2.5-4.5); Potassium 5.1 mmol/L (3.5-5.1)
[2019-12-13 05:25] LABS: Allen Test Performed? no
[2019-12-13 05:53] LABS: Glucose,Whole Blood 136 mg/dL (75-99)
[2019-12-13] MEDS ORDERED: ACETAMINOPHEN IV (For NPO) 1,000 MG in EMPTY BAG 1 BAG IVPB SCH (06:00)
[2019-12-13 06:12] LABS: HCT 30.4 % (34.0-46.0); Hypochromasia Slight; MCHC 31.2 g/dL (31.0-37.0); MCV 102.4 fL (80.0-100.0); Macrocytosis Slight; Platelet Count 284 k/uL (150-450); RBC 2.97 m/uL (3.80-5.40); RDW 13.3 % (11.5-15.5); WBC 9.2 k/uL (3.8-10.6)
[2019-12-13] MEDS: INSULIN ASPART (NovoLOG) 100 UNIT/ML VIAL SQ SCH ×3 (06:14→18:09)
[2019-12-13 06:16] LABS: HGB 9.5 gm/dL (11.4-16.0)
--- NOTE | 2019-12-13 07:19 | XR ---
EXAMINATION TYPE: XR chest 1V portable DATE OF EXAM: 12/13/2019 HISTORY: Tube placement. REFERENCE: Previous study dated 12/12/2019. FINDINGS: The patient is ET tube and NG tube remain in place, unchanged in appearance. Heart size upper limits of normal. There is mild vascular congestion without solomon edema. There is so me bibasilar atelectasis. I could not exclude small, bilateral effusions. IMPRESSION: 1. BIBASILAR ATELECTASIS. 2. VASCULAR CONGESTION WITHOUT SOLOMON EDEMA.
[2019-12-13] MEDS ORDERED: INSULIN ASPART (NovoLOG) 100 UNIT/ML VIAL SQ SCH (07:30)
[2019-12-13] MEDS: IPRATROPIUM-ALBUTEROL 3 ML NEB INHALATION SCH ×4 (07:50→20:04)
[2019-12-13] MEDS: FORMOTEROL FUMARATE 20 MCG/2 ML NEBU INHALATION SCH ×2 (07:50→20:04)
[2019-12-13] MEDS: BUDESONIDE 1 MG/2 ML NEBU INHALATION SCH ×2 (07:50→20:04)
[2019-12-13] MEDS: CHLORHEXIDINE GLUCONATE 15 ML CUP MUCOUS MEM SCH ×2 (08:38→20:08)
[2019-12-13] MEDS: OFLOXACIN 0.3% OPHTH DROPS 5 ML BOTTLE BOTH EARS SCH ×2 (08:38→20:09)
[2019-12-13] MEDS: PANTOPRAZOLE 40 MG/10 ML VIAL IV SCH (08:38)
[2019-12-13] MEDS ORDERED: LISINOPRIL 20 MG TAB PO SCH (09:00)
[2019-12-13] MEDS ORDERED: CISATRACURIUM 2 MG/ML 5 ML VIAL IV ONE (09:46)
[2019-12-13 11:24] VITALS: BMI 33.2
[2019-12-13] MEDS: AZITHROMYCIN 500 MG TAB PO SCH (11:44)
[2019-12-13 12:06] LABS: Glucose,Whole Blood 149 mg/dL (75-99)
--- NOTE | 2019-12-13 12:14 | CONS ---
CONSULTATION PULMONARY/CRITICAL CARE CONSULTATION: DATE OF SERVICE: 12/13/2019 REASON FOR CONSULTATION: Shortness of breath and respiratory failure. This is a 64-year-old female with history of severe end-stage COPD. She was in the emergency room on 12/12, brought in by EMS for progressive difficulty breathing for about 2 weeks prior to admission. Her breathing had been getting progressively worse. She had no fever or chills. She had no chest pain or palpitations. She apparently saw her lung doctor the day of admission. Since that time, her symptoms worsened. She apparently was coughing but not bringing up much or any phlegm. The patient was seen in the emergency room and admitted to the hospital. Throughout the day and night, her respiratory status worsened. The patient initially was placed on BiPAP. Despite that, her oxygenation and ventilation worsened. She developed acute on chronic hypoxemic and hypercapnic respiratory failure, was eventually and moved to the ICU and intubated. The patient never arrested. Currently, the patient is on the ventilator. She is on the volume assist-control mode rate of 22, tidal volume 350, FiO2 of 40%, PEEP of 5. Blood gases show a pO2 of 108, pCO2 of 51, and pH is 7.28. She is getting saline at 50 mL an hour, propofol at 75 mcg/kg per minute, Levophed at 4 mcg/minute. This has been turned down now to 3. Her cortisol level is pending. She was admitted and intubated on 12/12. I did take the liberty of calling the transplant team at [facility]. The patient apparently was telling individuals here that she has been listed for lung transplantation, but in actuality, she has not been listed as yet. I talked to a gal by name of Nadya Fitch who is one of the transplant pulmonologists at [facility]. She was in the process of being worked up for transplant and never listed as yet. HOME MEDICATIONS: Reviewed. She is on benazepril, Pulmicort, formoterol, vitamins, Mucinex, Flonase nasal spray, Motrin, Tylenol, Astepro, Tessalon Perles, Lasix, Daliresp, Yupelri, trazodone, Zofran, Xanax, albuterol inhaler, eye drops, Sudafed, Bactrim, and steroid ointment. She is also on Singulair, saline nasal rinse, and DuoNeb. ALLERGIES: Include REMICADE and ADHESIVE TAPES. PAST MEDICAL HISTORY: Positive for severe COPD, DVT, hypertension, pneumonia, rheumatoid arthritis, and vulvar cancer, secondary to HPV. She also has a history of colitis, osteopenia, appendiceal cancer, and chronic hypoxemic respiratory failure. She also suffers from restless legs syndrome. SURGICAL HISTORY: Includes appendectomy, bowel resection, hysterectomy, joint replacement, right knee replacement, partial vulvectomy, EGD, colonoscopy, Lasix eye surgery, right colectomy, colonoscopy, and various pain procedures at [facility]. SOCIAL HISTORY: Positive for previous tobacco use. She denies any alcohol use. She does use marijuana. FAMILY HISTORY: Positive for father with cancer and COPD. Cancer was colon cancer. Mother has a history of esophageal cancer. Sister with cervical cancer. REVIEW OF SYSTEMS: CONSTITUTIONAL: Negative. NEUROLOGIC: Negative. HEENT: Negative. CARDIOVASCULAR: Negative. PULMONARY: Shortness of breath, cough. GI: Negative. : Negative. RHEUMATOLOGIC: Negative. IMMUNOLOGIC: Negative. ENDOCRINOLOGIC: Negative. DERMATOLOGIC: Negative. Current vital signs include a temperature of 99 degrees, heart rate 94, respiratory rate 22, blood pressure 104/49, saturations are 96%. End-tidal CO2 of 37. Appears in no acute distress. Currently sedated with propofol. There is an orally placed endotracheal tube and NG tube. HEENT: Examination is grossly unremarkable. NECK: Supple. Full range of motion. No adenopathy. Neck veins are flat. CARDIOVASCULAR: Examination reveals regular rhythm and rate. Heart rate in mid 90s. S1, S2 normal. No murmur. Heart sounds are distant. LUNGS: Reveal diffuse coarse bilateral rhonchi. No wheezes. Breath sounds equal bilaterally. ABDOMEN: Obese, bowel sounds are heard. EXTREMITIES: Intact. No edema. SKIN: Without rash. NEUROLOGIC: Examination could not be evaluated given her current level of sedation. Her chest x-ray from 7:15 this morning shows bibasilar atelectasis and some diffuse vascular congestion. LABS: Reviewed. White count 9.2, hemoglobin 9.5, hematocrit 30.4, platelet count 384,000, sodium 132, potassium 5.1, chloride is 103, CO2 is 24, anion gap is 5. BUN and creatinine were 24 and 1.28. Magnesium is 1.6, phosphorus 2.3. Microbiologic studies are negative. Chest x-rays reviewed. Medications are reviewed. Currently, the patient is on Tylenol, Zithromax, Pulmicort, chlorhexidine, formoterol, subcu heparin, insulin, updrafts, Solu-Medrol, morphine, Narcan, norepinephrine, eye drops, Protonix, propofol, saline IV, and Desyrel. ASSESSMENT: 1. Acute hypoxemic and hypercapnic respiratory failure in a patient with severe chronic obstructive pulmonary disease. 2. Status post intubation and mechanical ventilation on December 12 for respiratory failure. 3. Prior history of tobacco use. 4. 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 5. Deep venous thrombosis. 6. Hypertension. 7. History of pneumonia. 8. History of rheumatoid arthritis. 9. History of colitis. 10.Osteopenia. 11.Chronic back pain. 12.Restless legs syndrome. 13.Obesity. 14.Multiple surgical procedures. PLAN: The patient is currently not listed for lung transplantation at [facility]. She has not completed the workup. They did not think she was sick enough. In addition, she was not going through pulmonary rehab and her BMI was too high. Nonetheless, the patient's medications are reviewed. She is on appropriate medications. Will continue to follow her closely. I did ask for a random cortisol. Additional recommendations and suggestions are forthcoming. No changes to the ventilator at this time. Currently, she is on propofol and norepinephrine at 4 mcg/minute. Will start tube feeds. Prognosis is guarded. She will need lines. MMODL / IJN: [id number] /
--- NOTE | 2019-12-13 12:38 | PCN ---
PROCEDURE NOTE DATE OF SERVICE: 12/13/2019 INDICATION: Hemodynamic monitoring, norepinephrine, CVP monitoring. TRIPLE LUMEN CATHETER PLACEMENT: A time-out was completed verifying correct patient, procedure, site, positioning, and implant(s) or special equipment if applicable. The patient was placed in a dependent position appropriate for triple lumen catheter placement based on the vein to be cannulated. The patient's left neck was prepped and draped in sterile fashion. 1% Lidocaine was used to anesthetize the surrounding skin area. A triple lumen 9F Cordis catheter was introduced into the left internal jugular vein using Seldinger technique. The catheter was threaded smoothly over the guide wire and appropriate blood return was obtained. Each lumen of the catheter was evacuated of air and flushed with sterile saline. The catheter was then sutured in place to the skin and a sterile dressing applied. Perfusion to the extremity distal to the point of catheter insertion was checked and found to be adequate. No immediate complications. MMODL / IJN: [id number] /
--- NOTE | 2019-12-13 12:45 | XR ---
EXAMINATION TYPE: XR chest 1V portable DATE OF EXAM: 12/13/2019 HISTORY: central line placement.. REFERENCE: Previous study of earlier today. FINDINGS: Patient is ET tube and NG tube remain in place, unchanged in appearance. A right internal i rregular catheter is been inserted. Its tip is in the right atrium. No pneumothorax is seen. There continues be some bibasilar atelectasis. Heart size is within normal limits. I could not exclud e a small right effusion. IMPRESSION: I SEE NO POST CATHETER INSERTION COMPLICATION.
--- NOTE | 2019-12-13 13:08 | P.PN ---
Subjective Progress Note Date: 12/13/19 The patient is a 64-year-old female with a PMH of COPD (currently awaiting lung transplant), who recently underwent a cardiac catheterization 10 days prior at [facility] in preparation for her lung transplant, extensive history of tobacco abuse, hypertension, and rheumatoid arthritis who presented to the ED with her sister for gradually worsening shortness of breath and cough. Upon presentation, her vitals included temperature 98.5, pulse 123, BP 154/83, saturating 93% on 4 L nasal cannula, and respiratory rate of 36. The patient was seen and evaluated at the bedside in the emergency room. She was on BiPAP and was somewhat lethargic after having received Ativan. History was partially obtained by the sister at the bedside. She reported that after the patient had returned from [facility] from her cardiac catheterization, the patient gradually developed shortness of breath with a cough productive of yellow phlegm. The patient was subsequently seen by Dr. Goodman in the clinic on 12/10 where she was prescribed oral steroids and Bactrim, which the patient was compliant with. The patient also reported chills at home though no documented fevers. The patient otherwise denied abdominal pain, dysuria, nausea, or vomiting. She underwent an extensive evaluation in the emergency room with chest x-ray showing no acute process with EKG showing sinus tachycardia at 122 bpm with no acute ST/T-wave changes noted. Laboratory evaluation revealed WBC count 13.9, hemoglobin 11.8, platelets 339, sodium 134, potassium 5.2, chloride 96, BUN 19, creatinine 0.87, glucose 182, troponin less than 0.012, and influenza negative. Patient was admitted to the medicine service for further management of acute COPD exacerbation. The patient's respiratory status worsened overnight on 12/12. She was noted to be in more distress and ABG revealed a pH of 7.14 and a pCO2 of 88. The patient was subsequently transferred to the MICU where she was intubated. The patient was seen and evaluated at the bedside on 12/13. She was on mechanical ventilation. Unresponsive to stimuli. Objective - Vital Signs Vital signs: Vital Signs Temp 99.0 F 12/13/19 08:00 Pulse 87 12/13/19 11:38 Resp 22 12/13/19 11:15 BP 131/53 12/13/19 07:30 Pulse Ox 96 12/13/19 11:15 Intake & Output 12/12/19 12/13/19 12/13/19 18:59 06:59 18:59 Intake Total 40 2629.491 260.823 Output Total 535 395 Balance 40 2094.491 -134.177 Weight 79.5 kg 79.8 kg 79.8 kg Intake: IV 40 2320 150 Invasive Line 2 30 10 Invasive Line 3 10 10 Sodium Chloride 0.9% 1, 300 150 000 ml @ 50 mls/hr IV . Q20H [facility] Rx#:[id number] Sodium Chloride 0.9% 1, 2000 000 ml @ 999 mls/hr IV . Q1H1M [facility] Rx#:[id number] Intake, IV Titration 309.491 110.823 Amount Norepinephrine 4 mg In 81.127 20.193 Sodium Chloride 0.9% 250 ml @ 0.05 MCG/KG/MIN 15. 145 mls/hr IV .[id number] [facility] Rx#:[id number] Propofol 1,000 mg In 228.364 90.63 Empty Bag 1 bag @ Titrate IV .Q0M [facility] Rx#: [id number] Output: Urine 535 395 Other: Voiding Method Indwelling Catheter Indwelling Catheter ABP, PAP, CO, CI - Last Documented Arterial Blood Pressure 118/50 - Exam General: Non-toxic, in no acute distress, intubated, on mechanical ventilation, appears older than stated age, obese HEENT: NC/AT, anicteric sclerae, moist conjunctiva, PERRLA Cardiovascular: S1/S2 wnl, no murmurs, rubs, or gallops Lungs: Wheezing appreciated, intubated Abdominal: Soft, non-tender, non-distended, no guarding, rebound, or rigidity Skin: Warm, dry Extremities: No edema or contractures Psychiatric: Unresponsive to stimuli, sedated - Labs CBC & Chem 7: 12/13/19 05:43 12/13/19 04:42 Labs: Abnormal Lab Results - Last 24 Hours (Table) 12/12/19 12/12/19 12/12/19 Range/Units 00:59 13:45 14:30 WBC 13.9 H (3.8-10.6) k/uL RBC 3.71 L (3.80-5.40) m/uL Hgb (11.4-16.0) gm/dL Hct (34.0-46.0) % MCV 101.4 H (80.0-100.0) fL MCHC (31.0-37.0) g/dL Neutrophils # 12.4 H (1.3-7.7) k/uL Lymphocytes # (1.0-4.8) k/uL ABG pH (7.35-7.45) ABG pCO2 (35-45) mmHg ABG pO2 (83-108) mmHg ABG HCO3 (21-25) mmol/L ABG Total CO2 (19-24) mmol/L ABG O2 Saturation (94-97) % Sodium 134 L (137-145) mmol/L Potassium 5.2 H (3.5-5.1) mmol/L Chloride 96 L (98-107) mmol/L BUN 19 H (7-17) mg/dL Creatinine (0.52-1.04) mg/dL Glucose 182 H (74-99) mg/dL POC Glucose (mg/dL) (75-99) mg/dL Calcium (8.4-10.2) mg/dL Phosphorus (2.5-4.5) mg/dL Urine Appearance Cloudy H (Clear) Urine Protein 1+ H (Negative) Urine Blood Trace H (Negative) Urine RBC 36 H (0-5) /hpf Amorphous Sediment Rare H (None) /hpf Urine Mucus Rare H (None) /hpf 12/12/19 12/12/19 12/12/19 Range/Units 19:05 20:18 21:05 WBC (3.8-10.6) k/uL RBC (3.80-5.40) m/uL Hgb (11.4-16.0) gm/dL Hct (34.0-46.0) % MCV (80.0-100.0) fL MCHC (31.0-37.0) g/dL Neutrophils # (1.3-7.7) k/uL Lymphocytes # (1.0-4.8) k/uL ABG pH 7.14 L* 7.12 L* (7.35-7.45) ABG pCO2 88 H* 90 H* (35-45) mmHg ABG pO2 129 H 62 L (83-108) mmHg ABG HCO3 30 H 29 H (21-25) mmol/L ABG Total CO2 33 H 32 H (19-24) mmol/L ABG O2 Saturation 98.0 H 89.0 L (94-97) % Sodium (137-145) mmol/L Potassium (3.5-5.1) mmol/L Chloride (98-107) mmol/L BUN (7-17) mg/dL Creatinine (0.52-1.04) mg/dL Glucose (74-99) mg/dL POC Glucose (mg/dL) 153 H (75-99) mg/dL Calcium (8.4-10.2) mg/dL Phosphorus (2.5-4.5) mg/dL Urine Appearance (Clear) Urine Protein (Negative) Urine Blood (Negative) Urine RBC (0-5) /hpf Amorphous Sediment (None) /hpf Urine Mucus (None) /hpf 12/12/19 12/12/19 12/13/19 Range/Units 23:06 23:56 04:42 WBC (3.8-10.6) k/uL RBC 2.34 L (3.80-5.40) m/uL Hgb 7.4 L D (11.4-16.0) gm/dL Hct 24.2 L (34.0-46.0) % MCV 103.8 H (80.0-100.0) fL MCHC 30.4 L (31.0-37.0) g/dL Neutrophils # (1.3-7.7) k/uL Lymphocytes # 0.5 L (1.0-4.8) k/uL ABG pH 7.25 L (7.35-7.45) ABG pCO2 59 H (35-45) mmHg ABG pO2 134 H (83-108) mmHg ABG HCO3 26 H (21-25) mmol/L ABG Total CO2 28 H (19-24) mmol/L ABG O2 Saturation 99.3 H (94-97) % Sodium (137-145) mmol/L Potassium (3.5-5.1) mmol/L Chloride (98-107) mmol/L BUN (7-17) mg/dL Creatinine (0.52-1.04) mg/dL Glucose (74-99) mg/dL POC Glucose (mg/dL) 161 H (75-99) mg/dL Calcium (8.4-10.2) mg/dL Phosphorus (2.5-4.5) mg/dL Urine Appearance (Clear) Urine Protein (Negative) Urine Blood (Negative) Urine RBC (0-5) /hpf Amorphous Sediment (None) /hpf Urine Mucus (None) /hpf 12/13/19 12/13/19 12/13/19 Range/Units 04:42 05:21 05:43 WBC (3.8-10.6) k/uL RBC 2.97 L (3.80-5.40) m/uL Hgb 9.5 L D (11.4-16.0) gm/dL Hct 30.4 L (34.0-46.0) % MCV 102.4 H (80.0-100.0) fL MCHC (31.0-37.0) g/dL Neutrophils # (1.3-7.7) k/uL Lymphocytes # (1.0-4.8) k/uL ABG pH 7.28 L (7.35-7.45) ABG pCO2 51 H (35-45) mmHg ABG pO2 (83-108) mmHg ABG HCO3 (21-25) mmol/L ABG Total CO2 26 H (19-24) mmol/L ABG O2 Saturation 98.7 H (94-97) % Sodium 132 L (137-145) mmol/L Potassium (3.5-5.1) mmol/L Chloride (98-107) mmol/L BUN 24 H (7-17) mg/dL Creatinine 1.28 H (0.52-1.04) mg/dL Glucose 135 H (74-99) mg/dL POC Glucose (mg/dL) (75-99) mg/dL Calcium 6.9 L (8.4-10.2) mg/dL Phosphorus 2.3 L (2.5-4.5) mg/dL Urine Appearance (Clear) Urine Protein (Negative) Urine Blood (Negative) Urine RBC (0-5) /hpf Amorphous Sediment (None) /hpf Urine Mucus (None) /hpf 12/13/19 Range/Units 05:52 WBC (3.8-10.6) k/uL RBC (3.80-5.40) m/uL Hgb (11.4-16.0) gm/dL Hct (34.0-46.0) % MCV (80.0-100.0) fL MCHC (31.0-37.0) g/dL Neutrophils # (1.3-7.7) k/uL Lymphocytes # (1.0-4.8) k/uL ABG pH (7.35-7.45) ABG pCO2 (35-45) mmHg ABG pO2 (83-108) mmHg ABG HCO3 (21-25) mmol/L ABG Total CO2 (19-24) mmol/L ABG O2 Saturation (94-97) % Sodium (137-145) mmol/L Potassium (3.5-5.1) mmol/L Chloride (98-107) mmol/L BUN (7-17) mg/dL Creatinine (0.52-1.04) mg/dL Glucose (74-99) mg/dL POC Glucose (mg/dL) 136 H (75-99) mg/dL Calcium (8.4-10.2) mg/dL Phosphorus (2.5-4.5) mg/dL Urine Appearance (Clear) Urine Protein (Negative) Urine Blood (Negative) Urine RBC (0-5) /hpf Amorphous Sediment (None) /hpf Urine Mucus (None) /hpf Microbiology - Last 24 Hours (Table) 12/13/19 00:14 Sputum Culture - Preliminary Sputum Assessment and Plan Plan: Acute COPD exacerbation -DuoNeb's, Solumedrol -Ventilator bundle -C/w MICU level of care MICHELLE -Likely due to dehydration -C/w gentle hydration and monitor BMP Macrocytic anemia -Monitor CBC for now Hyperkalemia, improved -Possible due to dehydration -Monitor BMP DVT prophylaxis -Heparin
[2019-12-13] MEDS ORDERED: VANCOMYCIN 1,500 MG in SODIUM CHLORIDE 0.9% 250 ML IVPB SCH (18:00)
[2019-12-13 18:15] LABS: Glucose,Whole Blood 132 mg/dL (75-99)
[2019-12-13] MEDS ORDERED: Magnesium Replacement Protocol 1 EACH MISC MISCELLANE PRN (19:23)
[2019-12-13] MEDS: SODIUM CHLORIDE 0.9% 1,000 ML IV SCH (20:08)
[2019-12-13] MEDS: MAGNESIUM SULFATE-D5W PMX 1 GM in DEXTROSE/WATER 1 100ML.BAG IVPB SCH ×2 (20:09→21:11)
[2019-12-13] MEDS: traZODone HCL 50 MG TAB PO SCH (20:59)
[2019-12-13 23:47] LABS: Glucose,Whole Blood 167 mg/dL (75-99)
[2019-12-14] MEDS: INSULIN ASPART (NovoLOG) 100 UNIT/ML VIAL SQ SCH ×4 (00:03→19:18)
[2019-12-14] MEDS: HEPARIN SODIUM,PORCINE 5,000 UNIT/ML 1 ML VIAL SQ SCH ×3 (00:05→17:20)
[2019-12-14] MEDS: IPRATROPIUM-ALBUTEROL 3 ML NEB INHALATION SCH ×7 (00:07→23:40)
[2019-12-14] MEDS: methylPREDNISolone SOD SUCCI 125 MG/2 ML VIAL IV SCH ×4 (00:07→19:19)
[2019-12-14] MEDS: PROPOFOL 1,000 MG in EMPTY BAG 1 BAG IV SCH ×9 (01:10→22:45)
[2019-12-14] MEDS: MORPHINE SULFATE 2 MG/ML SYRINGE IVP PRN ×2 (03:34→09:29)
[2019-12-14 05:01] LABS: Basophils # (A) 0.1 k/uL (0-0.2); Basophils % (A) 1 %; Eosinophils # (A) 0.1 k/uL (0-0.7); Eosinophils % (A) 1 %; HCT 29.6 % (34.0-46.0); HGB 9.3 gm/dL (11.4-16.0); Lymphocytes # (A) 0.5 k/uL (1.0-4.8); Lymphocytes % (A) 6 %; MCH 31.8 pg (25.0-35.0); MCHC 31.3 g/dL (31.0-37.0); MCV 101.7 fL (80.0-100.0); Macrocytosis Slight; Mean Platelet Volume 8.1; Monocytes # (A) 0.3 k/uL (0-1.0); Monocytes % (A) 4 %; Neutrophils # (A) 6.6 k/uL (1.3-7.7); Neutrophils % (A) 86 %; Platelet Count 259 k/uL (150-450); RBC 2.91 m/uL (3.80-5.40); RDW 13.4 % (11.5-15.5); WBC 7.7 k/uL (3.8-10.6)
[2019-12-14 05:17] LABS: African American GFR (CKD) >90 (>60 ml/min/1.73 sqM); Anion Gap 5 mmol/L; Blood Urea Nitrogen 18 mg/dL (7-17); Calcium 7.5 mg/dL (8.4-10.2); Carbon Dioxide 24 mmol/L (22-30); Chloride 107 mmol/L (98-107); Glucose 144 mg/dL (74-99); Magnesium 2.8 mg/dL (1.6-2.3); Non-African American GFR(CKD) 89 (>60 ml/min/1.73 sqM); Potassium 4.6 mmol/L (3.5-5.1); Sodium 136 mmol/L (137-145)
--- NOTE | 2019-12-14 05:54 | XR ---
EXAMINATION TYPE: XR chest 1V portable DATE OF EXAM: 12/14/2019 HISTORY: Tube placement. REFERENCE: Previous study dated 12/13/2019. FINDINGS: The patient is ET tube, NG tube and left internal jugular catheters remain in place, unchan ged in appearance. Heart size is upper limits of normal. There is minimal atelectasis at the lung bases. No definite ple ural fluid is seen. IMPRESSION: NO SIGNIFICANT INTERVAL CHANGE IN THE APPEARANCE OF THE CHEST.
[2019-12-14 06:06] LABS: Glucose,Whole Blood 141 mg/dL (75-99)
[2019-12-14 07:18] LABS: ABG Base Excess -0.2 mmol/L; ABG HCO3 26 mmol/L (21-25); ABG Oxygen Saturation 98.4 % (94-97); ABG PCO2 50 mmHg (35-45); ABG PH 7.33 (7.35-7.45); ABG PO2 105 mmHg (83-108); ABG TCO2 27 mmol/L (19-24)
[2019-12-14 07:21] LABS: Allen Test Performed? no
[2019-12-14] MEDS: FORMOTEROL FUMARATE 20 MCG/2 ML NEBU INHALATION SCH ×2 (08:15→19:41)
[2019-12-14] MEDS: BUDESONIDE 1 MG/2 ML NEBU INHALATION SCH ×2 (08:15→19:41)
[2019-12-14] MEDS: OFLOXACIN 0.3% OPHTH DROPS 5 ML BOTTLE BOTH EARS SCH ×3 (09:00→21:44)
[2019-12-14] MEDS: PANTOPRAZOLE 40 MG/10 ML VIAL IV SCH (09:00)
[2019-12-14] MEDS: CHLORHEXIDINE GLUCONATE 15 ML CUP MUCOUS MEM SCH ×2 (09:00→20:56)
[2019-12-14] MEDS: AZITHROMYCIN 500 MG TAB PO SCH (09:00)
[2019-12-14] MEDS ORDERED: FUROSEMIDE 10 MG/ML 4 ML VIAL IV STA (09:07)
--- NOTE | 2019-12-14 10:31 | P.PN ---
Subjective Progress Note Date: 12/14/19 The patient is a 64-year-old female with a PMH of COPD (currently awaiting lung transplant), who recently underwent a cardiac catheterization 10 days prior at [facility] in preparation for her lung transplant, extensive history of tobacco abuse, hypertension, and rheumatoid arthritis who presented to the ED with her sister for gradually worsening shortness of breath and cough. Upon presentation, her vitals included temperature 98.5, pulse 123, BP 154/83, saturating 93% on 4 L nasal cannula, and respiratory rate of 36. The patient was seen and evaluated at the bedside in the emergency room. She was on BiPAP and was somewhat lethargic after having received Ativan. History was partially obtained by the sister at the bedside. She reported that after the patient had returned from [facility] from her cardiac catheterization, the patient gradually developed shortness of breath with a cough productive of yellow phlegm. The patient was subsequently seen by Dr. Goodman in the clinic on 12/10 where she was prescribed oral steroids and Bactrim, which the patient was compliant with. The patient also reported chills at home though no documented fevers. The patient otherwise denied abdominal pain, dysuria, nausea, or vomiting. She underwent an extensive evaluation in the emergency room with chest x-ray showing no acute process with EKG showing sinus tachycardia at 122 bpm with no acute ST/T-wave changes noted. Laboratory evaluation revealed WBC count 13.9, hemoglobin 11.8, platelets 339, sodium 134, potassium 5.2, chloride 96, BUN 19, creatinine 0.87, glucose 182, troponin less than 0.012, and influenza negative. Patient was admitted to the medicine service for further management of acute COPD exacerbation. The patient's respiratory status worsened overnight on 12/12. She was noted to be in more distress and ABG revealed a pH of 7.14 and a pCO2 of 88. The patient was subsequently transferred to the MICU where she was intubated. The patient was also started on Levophed infusion. The patient was seen and evaluated at the bedside on 12/14. She continues to be on mechanical v entilation with propofol and levophed. Objective - Vital Signs Vital signs: Vital Signs Temp 98.4 F 12/14/19 08:00 Pulse 96 12/14/19 09:30 Resp 25 H 12/14/19 09:30 BP 136/65 12/14/19 09:30 Pulse Ox 97 12/14/19 09:30 Intake & Output 12/13/19 12/14/19 12/14/19 18:59 06:59 18:59 Intake Total 023.874 6648.361 246.837 Output Total 1030 855 110 Balance -378.887 501.361 136.837 Weight 79.8 kg Intake: IV 400 800 150 Magnesium Sulfate-D5w Pmx 200 1 gm In Dextrose/Water 1 100ml.bag @ 100 mls/hr IVPB Q1H [facility] Rx#: [id number] Sodium Chloride 0.9% 1, 400 600 150 000 ml @ 50 mls/hr IV . Q20H [facility] Rx#:[id number] Intake, IV Titration 241.113 506.361 96.837 Amount Norepinephrine 4 mg In 50.483 114.497 Sodium Chloride 0.9% 250 ml @ 0.05 MCG/KG/MIN 15. 145 mls/hr IV .[id number] [facility] Rx#:[id number] Propofol 1,000 mg In 190.63 391.864 96.837 Empty Bag 1 bag @ Titrate IV .Q0M [facility] Rx#: [id number] Tube Feeding 10 50 Output: Urine 1030 855 110 Other: Voiding Method Indwelling Catheter Indwelling Catheter Indwelling Catheter ABP, PAP, CO, CI - Last Documented Arterial Blood Pressure 162/62 - Exam General: Non-toxic, in no acute distress, intubated, on mechanical ventilation, appears older than stated age, obese HEENT: NC/AT, anicteric sclerae, moist conjunctiva, PERRLA Cardiovascular: S1/S2 wnl, no murmurs, rubs, or gallops Lungs: Some wheezing greg, intubated Abdominal: Soft, non-tender, non-distended, no guarding, rebound, or rigidity Skin: Warm, dry Extremities: No edema or contractures Psychiatric: Unresponsive to stimuli, sedated - Labs CBC & Chem 7: 12/14/19 04:52 12/14/19 04:52 Labs: Abnormal Lab Results - Last 24 Hours (Table) 12/13/19 12/13/19 12/13/19 Range/Units 12:04 18:03 23:45 RBC (3.80-5.40) m/uL Hgb (11.4-16.0) gm/dL Hct (34.0-46.0) % MCV (80.0-100.0) fL Lymphocytes # (1.0-4.8) k/uL ABG pH (7.35-7.45) ABG pCO2 (35-45) mmHg ABG HCO3 (21-25) mmol/L ABG Total CO2 (19-24) mmol/L ABG O2 Saturation (94-97) % Sodium (137-145) mmol/L BUN (7-17) mg/dL Glucose (74-99) mg/dL POC Glucose (mg/dL) 149 H 132 H 167 H (75-99) mg/dL Calcium (8.4-10.2) mg/dL Magnesium (1.6-2.3) mg/dL 12/14/19 12/14/19 12/14/19 Range/Units 04:52 04:52 06:05 RBC 2.91 L (3.80-5.40) m/uL Hgb 9.3 L (11.4-16.0) gm/dL Hct 29.6 L (34.0-46.0) % MCV 101.7 H (80.0-100.0) fL Lymphocytes # 0.5 L (1.0-4.8) k/uL ABG pH (7.35-7.45) ABG pCO2 (35-45) mmHg ABG HCO3 (21-25) mmol/L ABG Total CO2 (19-24) mmol/L ABG O2 Saturation (94-97) % Sodium 136 L (137-145) mmol/L BUN 18 H (7-17) mg/dL Glucose 144 H (74-99) mg/dL POC Glucose (mg/dL) 141 H (75-99) mg/dL Calcium 7.5 L (8.4-10.2) mg/dL Magnesium 2.8 H (1.6-2.3) mg/dL 12/14/19 Range/Units 07:13 RBC (3.80-5.40) m/uL Hgb (11.4-16.0) gm/dL Hct (34.0-46.0) % MCV (80.0-100.0) fL Lymphocytes # (1.0-4.8) k/uL ABG pH 7.33 L (7.35-7.45) ABG pCO2 50 H (35-45) mmHg ABG HCO3 26 H (21-25) mmol/L ABG Total CO2 27 H (19-24) mmol/L ABG O2 Saturation 98.4 H (94-97) % Sodium (137-145) mmol/L BUN (7-17) mg/dL Glucose (74-99) mg/dL POC Glucose (mg/dL) (75-99) mg/dL Calcium (8.4-10.2) mg/dL Magnesium (1.6-2.3) mg/dL Microbiology - Last 24 Hours (Table) 12/13/19 00:14 Gram Stain - Preliminary Sputum Sputum Culture - Preliminary 12/12/19 14:00 Blood Culture - Preliminary Blood No Growth after 24 hours Assessment and Plan Plan: Acute COPD exacerbatin in setting of acute on chronic hypoxic respiratory fa ilure requiring mechanical ventilation -DuoNeb's, Solumedrol -Ventilator bundle -C/w MICU level of care MICHELLE -Likely due to dehydration -C/w gentle hydration and monitor BMP Macrocytic anemia -Monitor CBC for now Hyperkalemia, improved -Possible due to dehydration -Monitor BMP DVT prophylaxis -Heparin
--- NOTE | 2019-12-14 10:47 | PN ---
PROGRESS NOTE DATE OF SERVICE: December 14, 2019 This is a 64-year-old female with a history of severe end-stage COPD. She came into the emergency room on December 12, brought in by EMS because of profound and significant shortness of breath. It had been occurring for about 2 weeks prior to admission and getting progressively worse. She had no fever or chills, chest pain or palpitations. She apparently saw her lung doctor the day of admission. Her symptoms worsened. She was coughing. Not bringing up much phlegm. Anyway, the patient was initially placed on BiPAP, but despite that, her oxygenation worsened. She had both acute on chronic hypoxemic and hypercapnic respiratory failure. She was intubated. She remains on mechanical life support machine. Her vent settings are the volume assist-control mode, rate of 22, tidal volume 350, FiO2 of 40%, PEEP of 5. Blood gases show pO2 of 105, pCO2 of 15, and pH 7.33. Interesting, her peak airway pressure was about 40. Her plateau pressure was about 20. The difference between the two is about 20 cm of water. This would predict that she still has significant airways resistance and would not be a candidate for a spontaneous breathing trial. In fact, we did do a spontaneous breathing trial after daily interruption of sedation. She became very agitated, tachypneic, tachycardic, hypertensive, and diaphoretic. She was resedated. This was only after a few minutes. Currently, she is on saline at 50 mL an hour. She is on propofol at 70 mcg/kg/minute and norepinephrine is currently off. She is getting Vital high-protein at 10 with a goal of 10. She will get Lasix 40 mg IV push today. I did take the liberty of talking to the help desk coordinator at [facility]. I spoke to the coordinator as well as the transplant financial operations consultant, Dr. Fitch. She is currently not listed for lung transplantation. PHYSICAL EXAMINATION: VITAL SIGNS: Current vital signs are reviewed. Temperature is 98.4, heart rate 79, respiratory rate 22, blood pressure 115/56, mean 75, saturations are 99%. GENERAL: Appears in no acute distress. HEENT examination is grossly unremarkable. Mucous membranes are moist. No oral lesions. NECK: Supple. Full range of motion. She does have an orally placed endotracheal tube and NG tube. NECK: Supple. CARDIOVASCULAR: Examination reveals regular rhythm rate. When sedated, heart rate in the mid 70s. S1, S2 normal. No murmur. LUNGS: Reveal coarse inspiratory and expiratory rhonchi. There are some expiratory wheezes. No crackles. Breath sounds equal. ABDOMEN: Obese. Bowel sounds are heard. EXTREMITIES are intact. No edema. SKIN: Without rash. NEUROLOGIC: Examination is difficult to assess but when she is off her propofol, she is awake and alert. She seems appropriate. She does move all 4 extremities. Chest x-ray today shows a properly placed endotracheal tube. NG tube and left internal jugular triple-lumen catheter. She has some basilar atelectasis. Microbiology is thus far negative. Labs are reviewed. White count 7.7, hemoglobin 9.3, hematocrit 29.6, platelet count 359,000. Blood gases show pO2 of 105, pCO2 of 50, and a pH is 7.33. These blood gases are consistent with a respiratory acidosis. Sodium 136, potassium 4.6, chloride 107, CO2 24, anion gap is 5. BUN and creatinine were 18 and 0.71. Magnesium 2.8. Calcium 7.5. CURRENT MEDICATIONS: Reviewed. She is on Tylenol, Zithromax, Pulmicort, chlorhexidine, formoterol, subcu heparin, insulin per protocol, DuoNeb, magnesium replacement, Solu-Medrol, morphine sulfate, Narcan, eye drops, Protonix, trazodone, and a saline IV at 50 mL an hour. ASSESSMENT: 1. Acute hypoxemic and hypercapnic respiratory failure in a patient with severe chronic obstructive pulmonary disease. 2. Status post intubation with mechanical ventilation on December 12 for respiratory failure, as above. 3. Prior history of tobacco use. 4. 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 5. Deep venous thrombosis. 6. Benign essential hypertension. 7. History of pneumonia. 8. History of rheumatoid arthritis. 9. History of colitis. 10.Osteopenia. 11.Chronic back pain. 12.Restless legs syndrome. 13.Obesity. 14.Multiple surgical procedures. PLAN: The patient had a peak airway pressure of 40 and a plateau pressure of 20. The plateau difference would suggest increased airways resistance. We attempted a daily interruption of sedation with a spontaneous breathing trial, but unfortunately she only lasted a few minutes on PSV 5, CPAP of 5. She became very agitated, hypertensive, diaphoretic, tachypneic and tachycardic. She was placed back on sedation. She will continue on tube feeds. Norepinephrine has been weaned off. The patient may have an attempt tomorrow. I am happy with her blood gases. Microbiology is negative. Medications are reviewed. Prognosis is guarded. Finally, I did take the liberty of calling the transplant people at [facility]. She has not completed the evaluation as yet and therefore has not been listed for lung transplantation. I spoke to Mario Arroyo and Nadya Fitch both. CRITICAL CARE TIME: 35 minutes. MMODL / IJN: [id number] /
[2019-12-14] MEDS: NOREPINEPHRINE 4 MG in SODIUM CHLORIDE 0.9% 250 ML IV SCH (11:34)
[2019-12-14] MEDS: SODIUM CHLORIDE 0.9% 1,000 ML IV SCH (12:01)
[2019-12-14 12:12] LABS: Glucose,Whole Blood 138 mg/dL (75-99)
[2019-12-14] MEDS: HYDROmorphone 1 MG/ML 1 ML SYRINGE IVP PRN (14:41)
[2019-12-14] MEDS ORDERED: CISATRACURIUM 2 MG/ML 5 ML VIAL IV ONE (15:39)
[2019-12-14] MEDS: CISATRACURIUM 200 MG in SODIUM CHLORIDE 0.9% 180 ML IV SCH (16:21)
[2019-12-14 16:22] LABS: ABG Base Excess 1.2 mmol/L; ABG HCO3 27 mmol/L (21-25); ABG Oxygen Saturation 97.6 % (94-97); ABG PCO2 53 mmHg (35-45); ABG PH 7.32 (7.35-7.45); ABG PO2 95 mmHg (83-108); ABG TCO2 29 mmol/L (19-24); Allen Test Performed? Yes
[2019-12-14 18:58] LABS: Glucose,Whole Blood 175 mg/dL (75-99)
[2019-12-14] MEDS: traZODone HCL 50 MG TAB PO SCH (20:56)
[2019-12-15] LABS: Glucose,Whole Blood 138 mg/dL (75-99)
[2019-12-15] MEDS: INSULIN ASPART (NovoLOG) 100 UNIT/ML VIAL SQ SCH ×4 (00:03→18:12)
[2019-12-15] MEDS: HEPARIN SODIUM,PORCINE 5,000 UNIT/ML 1 ML VIAL SQ SCH ×3 (00:03→18:01)
[2019-12-15] MEDS: methylPREDNISolone SOD SUCCI 125 MG/2 ML VIAL IV SCH ×4 (00:03→18:02)
[2019-12-15] MEDS: PROPOFOL 1,000 MG in EMPTY BAG 1 BAG IV SCH ×6 (01:18→23:12)
[2019-12-15] MEDS: HYDROmorphone 1 MG/ML 1 ML SYRINGE IVP PRN ×2 (03:15→10:49)
[2019-12-15] MEDS: IPRATROPIUM-ALBUTEROL 3 ML NEB INHALATION SCH ×6 (03:32→23:34)
[2019-12-15] MEDS: NOREPINEPHRINE 4 MG in SODIUM CHLORIDE 0.9% 250 ML IV SCH ×2 (04:15→22:22)
[2019-12-15 04:50] LABS: HCT 28.2 % (34.0-46.0); HGB 8.9 gm/dL (11.4-16.0); MCHC 31.6 g/dL (31.0-37.0); MCV 101.2 fL (80.0-100.0); Macrocytosis Slight; Mean Platelet Volume 8.5; Platelet Count 238 k/uL (150-450); RBC 2.78 m/uL (3.80-5.40); RDW 13.4 % (11.5-15.5)
[2019-12-15 04:58] LABS: African American GFR (CKD) >90 (>60 ml/min/1.73 sqM); Anion Gap 3 mmol/L; Blood Urea Nitrogen 24 mg/dL (7-17); Calcium 7.4 mg/dL (8.4-10.2); Carbon Dioxide 27 mmol/L (22-30); Chloride 105 mmol/L (98-107); Glucose 145 mg/dL (74-99); Non-African American GFR(CKD) >90 (>60 ml/min/1.73 sqM); Potassium 4.5 mmol/L (3.5-5.1); Sodium 135 mmol/L (137-145)
[2019-12-15 05:44] LABS: ABG Base Excess 2.4 mmol/L; ABG HCO3 27 mmol/L (21-25); ABG PCO2 45 mmHg (35-45); ABG PH 7.39 (7.35-7.45); ABG PO2 101 mmHg (83-108); ABG TCO2 29 mmol/L (19-24)
[2019-12-15] MEDS: SODIUM CHLORIDE 0.9% 1,000 ML IV SCH (05:51)
[2019-12-15 05:53] LABS: Glucose,Whole Blood 161 mg/dL (75-99)
[2019-12-15 06:11] LABS: Allen Test Performed? no
[2019-12-15] MEDS: FORMOTEROL FUMARATE 20 MCG/2 ML NEBU INHALATION SCH ×2 (07:52→21:48)
[2019-12-15] MEDS: BUDESONIDE 1 MG/2 ML NEBU INHALATION SCH ×2 (07:52→21:48)
--- NOTE | 2019-12-15 08:34 | XR ---
EXAMINATION TYPE: XR chest 1V portable DATE OF EXAM: 12/15/2019 COMPARISON: 12/14/2019 HISTORY: SOB, Follow Up FINDINGS: Indwelling tubes and catheters are unchanged. No focal infiltrates identified. Stable appearance of the cardio-mediastinal structures at this time. IMPRESSION: 1. Stable portable chest. Clinical correlation and follow up until resolution is recommended.
[2019-12-15] MEDS: PANTOPRAZOLE 40 MG/10 ML VIAL IV SCH (08:57)
[2019-12-15] MEDS: AZITHROMYCIN 500 MG TAB PO SCH (08:57)
[2019-12-15] MEDS: CHLORHEXIDINE GLUCONATE 15 ML CUP MUCOUS MEM SCH ×2 (08:57→20:19)
--- NOTE | 2019-12-15 11:17 | P.PN ---
Subjective Progress Note Date: 12/15/19 On today's evaluation of 12/15/2019 patient is being seen for a follow-up regarding her respiratory failure. This morning the patient is sedated with propofol at 75 g per KG per minute. The patient is also paralyzed with Nimbex at 1.9 g per KG per minute. She is sections of the mechanical ventilator. Earlier this morning showed assist-control mode with a rate of 26 and a tidal volume of 350 with a low of 60 FiO2 of 40% with a PEEP of 5. Morning blood gases showed a pH of 7.39 with a pCO2 of 45 and a pO2 of 101. The chest x-ray from today shows no acute abnormalities. ET tube is in a good location. The peak airway pressure was 39. The static pressure was 24. auto PEEP was 15. She was being treated with a combination of bronchodilators and steroids and antibiotics. She is on IV fluids at 10 mL an hour. Entero feeding Was started in the form of vital high protein at the rate of 10 ML's. She is producing adequate amount of urine output. She is afebrile. No skin lesions. No sig nificant orotracheal secretions. No edema lower extremities. Her baseline FEV1 was in the order of 30% of predicted based on the recent pulmonary function test that was done [facility] on 11/12/2019. She also had a recent CAT scan of the chest that was done and [facility] that showed no acute abnormalities or pneumonias. Antibiotic coverage including a combination of Rocephin and Zithromax. This patient has not been listed for lung transplantation. She was being evaluated for lung transplantation had a 14 is aware of her current admission. She has other comorbidities including hypertension and rheumatoid arthritis. She has chronic hypoxic respiratory failure maintained on oxygen between 2 and 4 L of oxygen by nasal cannula. I did she do with a course of Bactrim and a prednisone burst taper during a recent office visit on 12/10/2019. Objective - Vital Signs Vital signs: Vital Signs Temp 98.1 F 12/15/19 08:00 Pulse 69 12/15/19 08:34 Resp 26 H 12/15/19 08:00 BP 113/47 12/15/19 04:00 Pulse Ox 97 12/15/19 08:00 Intake & Output 12/14/19 12/15/19 12/15/19 18:59 06:59 18:59 Intake Total 276.979 4068.526 292.114 Output Total 1745 505 90 Balance -860.463 821.526 202.114 Weight 79.8 kg Intake: IV 600 600 150 Sodium Chloride 0.9% 1, 600 600 150 000 ml @ 50 mls/hr IV . Q20H LATESHA Rx#:[id number] Intake, IV Titration 284.537 496.526 82.114 Amount Cisatracurium 200 mg In 55.780 Sodium Chloride 0.9% 180 ml @ 1 MCG/KG/MIN 4.788 mls/hr IV .Q24H LATESHA Rx#: [id number] Propofol 1,000 mg In 284.537 440.746 82.114 Empty Bag 1 bag @ Titrate IV .Q0M LATESHA Rx#: [id number] Tube Feeding 110 30 Other 120 30 Output: Urine 1745 505 90 Other: Voiding Method Indwelling Catheter Indwelling Catheter ABP, PAP, CO, CI - Last Documented Arterial Blood Pressure 127/50 - Exam Gen. appearance, comfortable sedated and paralyzed on acute distress Head exam was generally normal. There was no scleral icterus or corneal arcus. Mucous membranes were moist. Neck was supple and without jugular venous distension, thyromegaly, or carotid bruits. Carotids were easily palpable bilaterally. There was no adenopathy. The patient is intubated by 7.5 ET tube. Orogastric and orotracheal tube are both in place Lungs sounds are diminished bilaterally along with scattered rhonchi and scattered expiratory wheezes throughout the lung guzman bilaterally. Cardiac exam revealed the PMI to be normally situated and sized. The rhythm was regular and no extrasystoles were noted during several minutes of auscultation. The first and second heart sounds were normal and physiologic splitting of the second heart sound was noted. There were no murmurs, rubs, clicks, or gallops. Abdominal exam revealed normal bowel sounds. The abdomen was soft, non-tender, and without masses, organomegaly, or appreciable enlargement of the abdominal aorta. Examination of the extremities revealed easily palpable radial, femoral and pedal pulses. There was no cyanosis, clubbing or edema. Examination of the skin revealed no evidence of significant rashes, suspicious appearing nevi or other concerning lesions. Neurologically the patient is sedated and paralyzed Psychiatric evaluation cannot be done. - Labs CBC & Chem 7: 12/15/19 04:26 12/15/19 04:26 Labs: Abnormal Lab Results - Last 24 Hours (Table) 12/14/19 12/14/19 12/14/19 Range/Units 12:06 16:21 18:46 RBC (3.80-5.40) m/uL Hgb (11.4-16.0) gm/dL Hct (34.0-46.0) % MCV (80.0-100.0) fL ABG pH 7.32 L (7.35-7.45) ABG pCO2 53 H (35-45) mmHg ABG HCO3 27 H (21-25) mmol/L ABG Total CO2 29 H (19-24) mmol/L ABG O2 Saturation 97.6 H (94-97) % Sodium (137-145) mmol/L BUN (7-17) mg/dL Glucose (74-99) mg/dL POC Glucose (mg/dL) 138 H 175 H (75-99) mg/dL Calcium (8.4-10.2) mg/dL 12/14/19 12/15/19 12/15/19 Range/Units 23:58 04:26 04:26 RBC 2.78 L (3.80-5.40) m/uL Hgb 8.9 L (11.4-16.0) gm/dL Hct 28.2 L (34.0-46.0) % MCV 101.2 H (80.0-100.0) fL ABG pH (7.35-7.45) ABG pCO2 (35-45) mmHg ABG HCO3 (21-25) mmol/L ABG Total CO2 (19-24) mmol/L ABG O2 Saturation (94-97) % Sodium 135 L (137-145) mmol/L BUN 24 H (7-17) mg/dL Glucose 145 H (74-99) mg/dL POC Glucose (mg/dL) 138 H (75-99) mg/dL Calcium 7.4 L (8.4-10.2) mg/dL 12/15/19 12/15/19 Range/Units 05:43 05:46 RBC (3.80-5.40) m/uL Hgb (11.4-16.0) gm/dL Hct (34.0-46.0) % MCV (80.0-100.0) fL ABG pH (7.35-7.45) ABG pCO2 (35-45) mmHg ABG HCO3 27 H (21-25) mmol/L ABG Total CO2 29 H (19-24) mmol/L ABG O2 Saturation 98.0 H (94-97) % Sodium (137-145) mmol/L BUN (7-17) mg/dL Glucose (74-99) mg/dL POC Glucose (mg/dL) 161 H (75-99) mg/dL Calcium (8.4-10.2) mg/dL Microbiology - Last 24 Hours (Table) 12/12/19 14:00 Blood Culture - Preliminary Blood No Growth after 48 hours Assessment and Plan Plan: 1 acute hypoxic/hypercapnic respiratory failure on top of chronic respiratory failure related to COPD exacerbation. The patient is actively bronchospastic and wheezy. Peak airway pressure is quite elevated and the patient has elevated auto PEEP. As such, the patient not ready for any form of weaning. Her chest x-ray is free of any acute pulmonary infiltrates. Her respiratory failure is associated related to an acute COPD exacerbation. 2 severe COPD with an FEV1 of 30% of predicted at baseline 3 chronic hypoxic respiratory failure with an oxygen between 2 and 4 L 4 recurrent COPD exacerbations and the patient was being treated with a course of prednisone burst taper and and Bactrim on outpatient basis 5 Poor performance and functional status secondary to advanced COPD 6 rheumatoid arthritis 7 hypertension Plan Will do the necessity ventilator changes. I dropped a respiratory rate down to 20. Eye doctor tidal volumes up to 300. Increase the flow to 17. By doing so had I:E ratio is 1-5.5. I'm going to repeat another blood gas. Peak airway pressures around 39. The patient's ROP has dropped down to 12. Continue bronchodilators Continue steroids Continue antibiotics Continue sedation Use fentanyl if needed Paralytic holiday DVT and GI prophylaxis Enteral feeding for nutritional support Inform the transplant team about the condition Prognosis poor baseline above-mentioned comorbidities including her advanced lung disease. We'll continue to follow. Critical care evaluation was 30 minutes. Time with Patient: Greater than 30
--- NOTE | 2019-12-15 12:06 | P.PN ---
Subjective Progress Note Date: 12/15/19 Principal diagnosis: follow up for acute COPD exacerbation Patient seen and examined currently sedated and paralyzed on vent support Patient was initiated tube feeding will advance as tolerated No reported GI bleeding. No fevers overnight Objective - Vital Signs Vital signs: Vital Signs Temp 98.1 F 12/15/19 08:00 Pulse 69 12/15/19 08:34 Resp 26 H 12/15/19 08:00 BP 113/47 12/15/19 04:00 Pulse Ox 97 12/15/19 08:00 Intake & Output 12/14/19 12/15/19 12/15/19 18:59 06:59 18:59 Intake Total 788.759 1349.526 142.114 Output Total 1745 505 30 Balance -860.463 821.526 112.114 Weight 79.8 kg Intake: IV 600 600 50 Sodium Chloride 0.9% 1, 600 600 50 000 ml @ 50 mls/hr IV . Q20H [facility]ESHA Rx#:[id number] Intake, IV Titration 284.537 496.526 82.114 Amount Cisatracurium 200 mg In 55.780 Sodium Chloride 0.9% 180 ml @ 1 MCG/KG/MIN 4.788 mls/hr IV .Q24H [facility]ESHA Rx#: [id number] Propofol 1,000 mg In 284.537 440.746 82.114 Empty Bag 1 bag @ Titrate IV .Q0M LATESHA Rx#: [id number] Tube Feeding 110 10 Other 120 Output: Urine 1745 505 30 Other: Voiding Method Indwelling Catheter Indwelling Catheter ABP, PAP, CO, CI - Last Documented Arterial Blood Pressure 127/50 - Exam Constitutional: vital signs stable, patient sedated and paralyzed currently on vent support Lungs: Audible breath sounds bilaterally slightly diminished at lung basis diffuse rhonchi Cardiovascular: Regular rate and rhythm, no murmurs, no gallops, no rubs, no p eripheral edema Gastrointestinal: Soft, no tenderness to palpation, no palpable hepatosplenomegally, bowel sounds positive Extremities: No digital cyanosis or clubbing, peripheral pulses palpable and equal , no calf muscle tenderness Psych: Patient sedated - Labs CBC & Chem 7: 12/15/19 04:26 12/15/19 04:26 Labs: Abnormal Lab Results - Last 24 Hours (Table) 12/14/19 12/14/19 12/14/19 Range/Units 12:06 16:21 18:46 RBC (3.80-5.40) m/uL Hgb (11.4-16.0) gm/dL Hct (34.0-46.0) % MCV (80.0-100.0) fL ABG pH 7.32 L (7.35-7.45) ABG pCO2 53 H (35-45) mmHg ABG HCO3 27 H (21-25) mmol/L ABG Total CO2 29 H (19-24) mmol/L ABG O2 Saturation 97.6 H (94-97) % Sodium (137-145) mmol/L BUN (7-17) mg/dL Glucose (74-99) mg/dL POC Glucose (mg/dL) 138 H 175 H (75-99) mg/dL Calcium (8.4-10.2) mg/dL 12/14/19 12/15/19 12/15/19 Range/Units 23:58 04:26 04:26 RBC 2.78 L (3.80-5.40) m/uL Hgb 8.9 L (11.4-16.0) gm/dL Hct 28.2 L (34.0-46.0) % MCV 101.2 H (80.0-100.0) fL ABG pH (7.35-7.45) ABG pCO2 (35-45) mmHg ABG HCO3 (21-25) mmol/L ABG Total CO2 (19-24) mmol/L ABG O2 Saturation (94-97) % Sodium 135 L (137-145) mmol/L BUN 24 H (7-17) mg/dL Glucose 145 H (74-99) mg/dL POC Glucose (mg/dL) 138 H (75-99) mg/dL Calcium 7.4 L (8.4-10.2) mg/dL 12/15/19 12/15/19 Range/Units 05:43 05:46 RBC (3.80-5.40) m/uL Hgb (11.4-16.0) gm/dL Hct (34.0-46.0) % MCV (80.0-100.0) fL ABG pH (7.35-7.45) ABG pCO2 (35-45) mmHg ABG HCO3 27 H (21-25) mmol/L ABG Total CO2 29 H (19-24) mmol/L ABG O2 Saturation 98.0 H (94-97) % Sodium (137-145) mmol/L BUN (7-17) mg/dL Glucose (74-99) mg/dL POC Glucose (mg/dL) 161 H (75-99) mg/dL Calcium (8.4-10.2) mg/dL Microbiology - Last 24 Hours (Table) 12/12/19 14:00 Blood Culture - Preliminary Blood No Growth after 48 hours Assessment and Plan Assessment: The patient is a 64-year-old female with a PMH of COPD (currently awaiting lung transplant), who recently underwent a cardiac catheterization [address] [facility] in preparation for her lung transplant, extensive history of tobacco abuse, hypertension, and rheumatoid arthritis who presented to the ED with her sister for gradually worsening shortness of breath and cough. Upon presentation, her vitals included temperature 98.5, pulse 123, BP 154/83, saturating 93% on 4 L nasal cannula, and respiratory rate of 36. @ED She was on BiPAP and was somewhat lethargic after having received Ativan. History was partially obtained by the sister at the bedside. She reported that after the patient had returned from [facility] from her cardiac catheterization, the pa tient gradually developed shortness of breath with a cough productive of yellow phlegm. The patient was subsequently seen by Dr. Goodman in the clinic on 12/10 where she was prescribed oral steroids and Bactrim, which the patient was compliant with. The patient also reported chills at home though no documented fevers. She underwent an extensive evaluation in the emergency room with chest x-ray showing no acute process with EKG showing sinus tachycardia at 122 bpm with no acute ST/T-wave changes noted. Laboratory evaluation revealed WBC count 13.9, hemoglobin 11.8, platelets 339, sodium 134, potassium 5.2, chloride 96, BUN 19, creatinine 0.87, glucose 182, troponin less than 0.012, and influenza negative. Patient was admitted to the medicine service for further management of acute COPD exacerbation. The patient's respiratory status worsened overnight on 12/12. She was noted to be in more distress and ABG revealed a pH of 7.14 and a pCO2 of 88. The patient was subsequently transferred to the MICU where she was intubated. The patient was also started on Levophed infusion. The patient was seen and evaluated at the bedside on 12/14. She continues to be on mechanical ventilation with propofol and levophed. 12/15 patient continues to be sedated and paralyzed with Nimbex on vent support, ABG showed improvement She continues to be on COPD pathway with IV systemic steroids and bronchodilators Patient on tube feeding Patient urine looks grayish patient on propofol check triglyceride level Pulmonary continues to manage and adjust ventilator Plan to continue supportive care in the ICU for now Plan: Acute hypoxic respiratory failure ventilator dependent secondary to acute COPD exacerbation Continue COPD pathway and care in the ICU IV systemic steroids Antibiotics Bronchodilators Pulmonary following Patient currently sedated and paralyzed Influenza negative Leukocytosis resolved Vital signs currently stable Acute kidney injury and electrolyte imbalance currently resolved Continue gentle hydration Monitor renal function Chronic anemia Continue to monitor hemoglobin closely No evidence of bleeding Advance tube feeding as tolerated Check triglyceride level , patient on propofol DVT prophylaxis -Heparin Chronic conditions Hypertension Advanced COPD plans were for outpatient lung transplant evaluation Rheumatoid arthritis
[2019-12-15 12:08] LABS: Glucose,Whole Blood 146 mg/dL (75-99)
[2019-12-15] MEDS: fentaNYL (PF) 1,000 MCG in SODIUM CHLORIDE 0.9% 80 ML IV SCH ×3 (12:22→23:57)
[2019-12-15 12:43] LABS: ABG Base Excess 1.2 mmol/L; ABG HCO3 28 mmol/L (21-25); ABG Oxygen Saturation 96.6 % (94-97); ABG PCO2 65 mmHg (35-45); ABG PH 7.25 (7.35-7.45); ABG PO2 96 mmHg (83-108); ABG TCO2 30 mmol/L (19-24)
[2019-12-15 12:46] LABS: Allen Test Performed? no
[2019-12-15] MEDS: CISATRACURIUM 200 MG in SODIUM CHLORIDE 0.9% 180 ML IV SCH ×2 (18:03→23:08)
[2019-12-15 18:09] LABS: Glucose,Whole Blood 139 mg/dL (75-99)
[2019-12-15] MEDS: traZODone HCL 50 MG TAB PO SCH (20:19)
[2019-12-15] MEDS ORDERED: CISATRACURIUM 2 MG/ML 5 ML VIAL IV ONE (22:47)
[2019-12-15] MEDS: MORPHINE SULFATE 2 MG/ML SYRINGE IVP PRN (23:12)
[2019-12-15 23:22] LABS: Glucose,Whole Blood 122 mg/dL (75-99)
[2019-12-16] MEDS: INSULIN ASPART (NovoLOG) 100 UNIT/ML VIAL SQ SCH ×2 (00:05→06:52)
[2019-12-16] MEDS: methylPREDNISolone SOD SUCCI 125 MG/2 ML VIAL IV SCH ×2 (00:17→06:01)
[2019-12-16] MEDS: HEPARIN SODIUM,PORCINE 5,000 UNIT/ML 1 ML VIAL SQ SCH ×2 (00:17→08:24)
[2019-12-16] MEDS: PROPOFOL 1,000 MG in EMPTY BAG 1 BAG IV SCH ×3 (01:57→08:26)
[2019-12-16] MEDS: IPRATROPIUM-ALBUTEROL 3 ML NEB INHALATION SCH ×3 (03:05→11:45)
[2019-12-16 05:17] LABS: Allen Test Performed? Yes
[2019-12-16 05:19] LABS: ABG Base Excess 1.3 mmol/L; ABG HCO3 28 mmol/L (21-25); ABG PCO2 61 mmHg (35-45); ABG PH 7.27 (7.35-7.45); ABG PO2 151 mmHg (83-108); ABG TCO2 30 mmol/L (19-24)
[2019-12-16 05:23] LABS: Basophils % (A) 0 %; Eosinophils % (A) 0 %; HCT 30.4 % (34.0-46.0); Hypochromasia Slight; Lymphocytes # (A) 0.4 k/uL (1.0-4.8); Lymphocytes % (A) 4 %; MCH 33.7 pg (25.0-35.0); MCHC 32.7 g/dL (31.0-37.0); MCV 102.9 fL (80.0-100.0); Macrocytosis Slight; Mean Platelet Volume 8.4; Monocytes # (A) 0.4 k/uL (0-1.0); Monocytes % (A) 4 %; Neutrophils # (A) 8.6 k/uL (1.3-7.7); Neutrophils % (A) 91 %; Platelet Count 211 k/uL (150-450); RBC 2.96 m/uL (3.80-5.40); RDW 13.1 % (11.5-15.5); WBC 9.5 k/uL (3.8-10.6)
[2019-12-16 05:28] LABS: African American GFR (CKD) >90 (>60 ml/min/1.73 sqM); Anion Gap 3 mmol/L; Blood Urea Nitrogen 29 mg/dL (7-17); Calcium 7.8 mg/dL (8.4-10.2); Carbon Dioxide 27 mmol/L (22-30); Chloride 106 mmol/L (98-107); Glucose 150 mg/dL (74-99); Non-African American GFR(CKD) >90 (>60 ml/min/1.73 sqM); Potassium 5.2 mmol/L (3.5-5.1); Sodium 136 mmol/L (137-145)
[2019-12-16] MEDS: SODIUM CHLORIDE 0.9% 1,000 ML IV SCH (05:52)
[2019-12-16 06:15] LABS: Glucose,Whole Blood 140 mg/dL (75-99)
[2019-12-16 07:02] VITALS: BP 124/59
[2019-12-16] MEDS: FORMOTEROL FUMARATE 20 MCG/2 ML NEBU INHALATION SCH (07:15)
[2019-12-16] MEDS: BUDESONIDE 1 MG/2 ML NEBU INHALATION SCH (07:15)
[2019-12-16 08:23] VITALS: TEMP 97
[2019-12-16] MEDS: CHLORHEXIDINE GLUCONATE 15 ML CUP MUCOUS MEM SCH (08:24)
[2019-12-16] MEDS: AZITHROMYCIN 500 MG TAB PO SCH (08:24)
[2019-12-16] MEDS: PANTOPRAZOLE 40 MG/10 ML VIAL IV SCH (08:24)
--- NOTE | 2019-12-16 08:52 | P.PN ---
Subjective Progress Note Date: 12/16/19 On today's evaluation of 12/15/2019 patient is being seen for a follow-up regarding her respiratory failure. This morning the patient is sedated with propofol at 75 g per KG per minute. The patient is also paralyzed with Nimbex at 1.9 g per KG per minute. She is sections of the mechanical ventilator. Earlier this morning showed assist-control mode with a rate of 26 and a tidal volume of 350 with a low of 60 FiO2 of 40% with a PEEP of 5. Morning blood gases showed a pH of 7.39 with a pCO2 of 45 and a pO2 of 101. The chest x-ray from today shows no acute abnormalities. ET tube is in a good location. The peak airway pressure was 39. The static pressure was 24. auto PEEP was 15. She was being treated with a combination of bronchodilators and steroids and antibiotics. She is on IV fluids at 10 mL an hour. Entero feeding Was started in the form of vital high protein at the rate of 10 ML's. She is producing adequate amount of urine output. She is afebrile. No skin lesions. No sig nificant orotracheal secretions. No edema lower extremities. Her baseline FEV1 was in the order of 30% of predicted based on the recent pulmonary function test that was done [facility] on 11/12/2019. She also had a recent CAT scan of the chest that was done and [facility] that showed no acute abnormalities or pneumonias. Antibiotic coverage including a combination of Rocephin and Zithromax. This patient has not been listed for lung transplantation. She was being evaluated for lung transplantation had a 14 is aware of her current admission. She has other comorbidities including hypertension and rheumatoid arthritis. She has chronic hypoxic respiratory failure maintained on oxygen between 2 and 4 L of oxygen by nasal cannula. I did she do with a course of Bactrim and a prednisone burst taper during a recent office visit on 12/10/2019. On 12/16/2019 and seeing the patient for a follow-up. This morning, the patient remains on propofol at 7 g per KG per minute. Fentanyl is running at 0.5 g per KG per minute. The patient also had to be paralyzed overnight as she was becoming asynchronous with a mechanical ventilator and she was peak pressuring. For now she is on Nimbex and she is very much synchronous. She is an assist- control mode at the rate of 20 with a tidal volume of 300 and the flow of 70 with a FiO2 of 40% and a PEEP of 5. The blood. From this morning shows a pH of 7.27 with a pCO2 of 61 and pO2 of 151. The patient has a I:E ratio 1-5.5. The caregiver pressures 38. Static pressures around 17. auto PEEP is at 9. The chest x-ray from today shows adequate positioning of the ET tube. There may be development of a small right-sided pleural effusion. There is no airspace disease or pulmonary infiltrates. ET tube is seen around 2 cm above the rod. There is also a triple lumen catheter which is in place. The patient is receiving enteral feeding for nutritional support. She is currently receiving vital high protein. The neck fluid balance over the past 24 hours has been +1.3 L. She remains on a combination of bronchodilators. She remains on IV Solu- Medrol. She remains on Zithromax as an empiric antibiotic coverage. Objective - Vital Signs Vital signs: Vital Signs Temp 97.0 F L 12/16/19 08:00 Pulse 89 12/16/19 08:00 Resp 20 12/16/19 08:00 BP 124/59 12/16/19 06:30 Pulse Ox 97 12/16/19 08:00 Intake & Output 12/15/19 12/16/19 12/16/19 18:59 06:59 18:59 Intake Total 0701.060 9447.469 256 Output Total 430 475 105 Balance 702.998 666.469 151 Weight 77.9 kg 81.8 kg Intake: IV 650 571 106 Sodium Chloride 0.9% 1, 650 550 100 000 ml @ 50 mls/hr IV . Q20H [facility] Rx#:[id number] pressure bag 21 6 Intake, IV Titration 262.998 370.469 100 Amount Cisatracurium 200 mg In 80.798 0 Sodium Chloride 0.9% 180 ml @ 1 MCG/KG/MIN 4.788 mls/hr IV .Q24H [facility] Rx#: [id number] Propofol 1,000 mg In 182.114 288.807 100 Empty Bag 1 bag @ Titrate IV .Q0M [facility] Rx#: [id number] fentaNYL (PF) 1,000 mcg 0.086 81.662 In Sodium Chloride 0.9% 80 ml @ 1 MCG/KG/HR 7.98 mls/hr IV .[id number] [facility] Rx #:[id number] Tube Feeding 130 110 20 Other 90 90 30 Output: Urine 430 475 105 Other: Voiding Method Indwelling Catheter Indwelling Catheter ABP, PAP, CO, CI - Last Documented Arterial Blood Pressure 134/46 - Exam Gen. appearance, comfortable sedated and paralyzed on acute distress Head exam was generally normal. There was no scleral icterus or corneal arcus. Mucous membranes were moist. Neck was supple and without jugular venous distension, thyromegaly, or carotid bruits. Carotids were easily palpable bilaterally. There was no adenopathy. The patient is intubated by 7.5 ET tube. Orogastric and orotracheal tube are both in place Lungs sounds are diminished bilaterally along with scattered rhonchi and scattered expiratory wheezes throughout the lung guzman bilaterally. Cardiac exam revealed the PMI to be normally situated and sized. The rhythm was regular and no extrasystoles were noted during several minutes of auscultation. The first and second heart sounds were normal and physiologic splitting of the second heart sound was noted. There were no murmurs, rubs, clicks, or gallops. Abdominal exam revealed normal bowel sounds. The abdomen was soft, non-tender, and without masses, organomegaly, or appreciable enlargement of the abdominal aorta. Examination of the extremities revealed easily palpable radial, femoral and pedal pulses. There was no cyanosis, clubbing or edema. Examination of the skin revealed no evidence of significant rashes, suspicious appearing nevi or other concerning lesions. Neurologically the patient is sedated and paralyzed Psychiatric evaluation cannot be done. - Labs CBC & Chem 7: 12/16/19 04:45 12/16/19 04:45 Labs: Abnormal Lab Results - Last 24 Hours (Table) 12/15/19 12/15/19 12/15/19 Range/Units 04:26 12:06 12:38 RBC (3.80-5.40) m/uL Hgb (11.4-16.0) gm/dL Hct (34.0-46.0) % MCV (80.0-100.0) fL Neutrophils # (1.3-7.7) k/uL Lymphocytes # (1.0-4.8) k/uL ABG pH 7.25 L (7.35-7.45) ABG pCO2 65 H (35-45) mmHg ABG pO2 (83-108) mmHg ABG HCO3 28 H (21-25) mmol/L ABG Total CO2 30 H (19-24) mmol/L ABG O2 Saturation (94-97) % Sodium (137-145) mmol/L Potassium (3.5-5.1) mmol/L BUN (7-17) mg/dL Glucose (74-99) mg/dL POC Glucose (mg/dL) 146 H (75-99) mg/dL Calcium (8.4-10.2) mg/dL Triglycerides 330 H (<150) mg/dL 12/15/19 12/15/19 12/16/19 Range/Units 18:08 23:21 04:45 RBC (3.80-5.40) m/uL Hgb (11.4-16.0) gm/dL Hct (34.0-46.0) % MCV (80.0-100.0) fL Neutrophils # (1.3-7.7) k/uL Lymphocytes # (1.0-4.8) k/uL ABG pH (7.35-7.45) ABG pCO2 (35-45) mmHg ABG pO2 (83-108) mmHg ABG HCO3 (21-25) mmol/L ABG Total CO2 (19-24) mmol/L ABG O2 Saturation (94-97) % Sodium 136 L (137-145) mmol/L Potassium 5.2 H (3.5-5.1) mmol/L BUN 29 H (7-17) mg/dL Glucose 150 H (74-99) mg/dL POC Glucose (mg/dL) 139 H 122 H (75-99) mg/dL Calcium 7.8 L (8.4-10.2) mg/dL Triglycerides (<150) mg/dL 12/16/19 12/16/19 12/16/19 Range/Units 04:45 05:15 06:03 RBC 2.96 L (3.80-5.40) m/uL Hgb 10.0 L (11.4-16.0) gm/dL Hct 30.4 L (34.0-46.0) % MCV 102.9 H (80.0-100.0) fL Neutrophils # 8.6 H (1.3-7.7) k/uL Lymphocytes # 0.4 L (1.0-4.8) k/uL ABG pH 7.27 L (7.35-7.45) ABG pCO2 61 H (35-45) mmHg ABG pO2 151 H (83-108) mmHg ABG HCO3 28 H (21-25) mmol/L ABG Total CO2 30 H (19-24) mmol/L ABG O2 Saturation 99.0 H (94-97) % Sodium (137-145) mmol/L Potassium (3.5-5.1) mmol/L BUN (7-17) mg/dL Glucose (74-99) mg/dL POC Glucose (mg/dL) 140 H (75-99) mg/dL Calcium (8.4-10.2) mg/dL Triglycerides (<150) mg/dL Microbiology - Last 24 Hours (Table) 12/12/19 14:00 Blood Culture - Preliminary Blood No Growth after 72 hours 12/13/19 00:14 Gram Stain - Final Sputum Sputum Culture - Final Assessment and Plan Plan: 1 acute hypoxic/hypercapnic respiratory failure on top of chronic respiratory failure related to COPD exacerbation. The patient is actively bronchospastic and wheezy. The patient continues to bronchospastic and wheezy. The patient is retaining CO2 based on today's blood gas. Nevertheless oxidation is improved considerably. The patient has a petechial pressure of around 38. Auto has improved compared to yesterday. She is sedated, paralyzed and symptoms with the mechanical ventilator for now. 2 severe COPD with an FEV1 of 30% of predicted at baseline 3 chronic hypoxic respiratory failure with an oxygen between 2 and 4 L 4 recurrent COPD exacerbations and the patient was being treated with a course of prednisone burst taper and and Bactrim on outpatient basis 5 Poor performance and functional status secondary to advanced COPD 6 rheumatoid arthritis 7 hypertension Plan Paralytic holiday Continue propofol and fentanyl for sedation. Increase the fentanyl if needed and gradually wean off the propofol Continue bronchodilators Continue IV Solu Medrol Empiric antibiotic coverage with Zithromax Enteral feeding for nutritional support Discussed the case with transplant team, and the transplant team opted to have this patient transferred to [facility] should there be any consideration for transplantation. I discussed the case with Dr. Sherman. Paralytic holiday DVT and GI prophylaxis Enteral feeding for nutritional support Start Lasix 40 mg every 24 hours Prognosis poor baseline above-mentioned comorbidities including her advanced lung disease. We'll continue to follow. Critical care evaluation was 30 m inutes. Time with Patient: Greater than 30
[2019-12-16] MEDS ORDERED: FUROSEMIDE 10 MG/ML 4 ML VIAL IV SCH (09:00)
--- NOTE | 2019-12-16 09:44 | XR ---
EXAMINATION TYPE: XR chest 1V portable DATE OF EXAM: 12/16/2019 COMPARISON: Prior chest x-ray 12/15/2019 HISTORY: Intubated TECHNIQUE: Single frontal view of the chest is obtained. FINDINGS: Endotracheal tube, NG tube, left jugular central venous catheter are overlying stable and appropriate positions. Patient is rotated. No evident pneumothorax. Lung volumes are low. Heart size is likely stable. There are overlying cardiac leads. There is likely subsegmental basilar atelectatic change. Aorta is dense. IMPRESSION: Rotated expiratory exam. Probable basilar atelectasis.
[2019-12-16 11:44] VITALS: PULSE 99; RESP 20
--- NOTE | 2019-12-16 18:05 | P.DS ---
Providers Date of admission: 12/12/19 16:31 Attending physician: Dionna Rene MD Consults: 12/12/19 16:31 Consult Physician Routine Consulting Provider: Jose Elias Goodman Consult Reason/Comments: COPD exacerbation Do you want consulting provider notified?: Yes Primary care physician: Gavin Riggs [facility] Course: final diagnosis on discharge Acute hypoxic respiratory failure ventilator dependent secondary to acute COPD exacerbation MICHELLE chronic anemia advanced COPD hospital course The patient is a 64-year-old female with a PMH of COPD (currently awaiting lung transplant), who recently underwent a cardiac catheterization 10 days prior at [facility] in preparation for her lung transplant, extensive history of tobacco abuse, hypertension, and rheumatoid arthritis who presented to the ED with her sister for gradually worsening shortness of breath and cough. Upon presentation, her vitals included temperature 98.5, pulse 123, BP 154/83, saturating 93% on 4 L nasal cannula, and respiratory rate of 36. @ED She was on BiPAP and was somewhat lethargic after having received Ativan. History was partially obtained by the sister at the bedside. She reported that after the patient had returned from [facility] from her cardiac catheterization, the patient gradually developed shortness of breath with a cough productive of yellow phlegm. The patient was subsequently seen by Dr. Goodman in the clinic on 12/10 where she was prescribed oral steroids and Bactrim, which the patient was compliant with. The patient also reported chills at home though no documented fevers. She underwent an extensive evaluation in the emergency room with chest x-ray showing no acute process with EKG showing sinus tachycardia at 122 bpm with no acute ST/T-wave changes noted. Laboratory evaluation revealed WBC count 13.9, hemoglobin 11.8, platelets 339, sodium 134, potassium 5.2, chloride 96, BUN 19, creatinine 0.87, glucose 182, troponin less than 0.012, and influenza negative. Patient was admitted to the medicine service for further management of acute COPD exacerbation. The patient's respiratory status worsened overnight on 12/12. She was noted to be in more distress and ABG revealed a pH of 7.14 and a pCO2 of 88. The patient was subsequently transferred to the MICU where she was intubated. The patient was also started on Levophed infusion. The patient was seen and evaluated at the bedside on 2/16. She continues to be on mechanical ventilation with propofol and levophed. 12/15 patient continues to be sedated and paralyzed with Nimbex on vent support, ABG showed improvement She continues to be on COPD pathway with IV systemic steroids and bronchodilators Patient on tube feeding Patient urine looks grayish patient on propofol check triglyceride level Pulmonary continues to manage and adjust ventilator Plan to continue supportive care in the ICU for now On 12/16 patient remains on propofol and Fentanyl is running at 0.5 and paralytic that started overnight as she was becoming asynchronous with a mechanical ventilator . She is an assist-control mode at the rate of 20 with a tidal volume of 300 and the flow of 70 with a FiO2 of 40% and a PEEP of 5. Th e blood. From this morning shows a pH of 7.27 with a pCO2 of 61 and pO2 of 151. tolerating enteral feeding for nutritional support. Patient seen and examined currently sedated and paralyzed on vent support Constitutional: vital signs stable, patient sedated and paralyzed currently on vent support Lungs: diminished breath sounds bilaterally diffuse rhonchi and wheezing Cardiovascular: Regular rate and rhythm, no murmurs, no gallops, no rubs, trace peripheral edema Gastrointestinal: Soft, no tenderness to palpation, no palpable hepatosplenomegally, bowel sounds positive Extremities: No digital cyanosis or clubbing, peripheral pulses palpable and equal , no calf muscle tenderness Psych: Patient sedated central venous cath in place Dr Goodman from pulmonary Discussed the case with transplant team, and the transplant team opted to have this patient transferred to [facility] should there be any consideration for transplantation. discussed the case with Dr. Sherman. transferred to [facility] 40 minutes were spent discharging this patient, and more than 50% of the time was spent in counseling the patient and family and in coordinating care. Patient Condition at Discharge: Critical Plan - Discharge Summary Discharge Rx Participant: No New Discharge Prescriptions: No Action Benazepril HCl 20 mg PO DAILY Formoterol Fumarate [Perforomist] 20 mcg INHALATION RT-BID Budesonide [Pulmicort] 0.5 mg INHALATION RT-BID Montelukast [Singulair] 10 mg PO HS #30 tab Multivit-Min/FA/Lycopen/Lutein [Centrum Silver Tablet] 1 tab PO DAILY guaiFENesin [Mucinex] 1,200 mg PO Q12HR PRN PRN Reason: Congestion Sodium Chloride 0.65% Nasal [Deep Sea (Saline)] 2 spray NASAL QID PRN spray PRN Reason: Dry Nasal Passages Fluticasone Nasal [place] [Flonase Nasal [place]] 1 spray EA NOSTRIL DAILY PRN PRN Reason: Allergy Symptoms Ibuprofen [Motrin] 800 mg PO TID PRN PRN Reason: Pain traZODone HCL 75 mg PO HS Benzonatate [Tessalon Perles] 100 mg PO TID PRN PRN Reason: Cough Acetaminophen [Tylenol Extra Strength] 500 mg PO TID PRN PRN Reason: Pain Furosemide [Lasix] 40 mg PO DAILY PRN PRN Reason: Edema Azelastine HCl [Astepro] 1 spray NASAL HS Roflumilast [Daliresp] 500 mcg PO HS Yupelri 175mcg/3ml 175 mcg INHALATION DAILY@1730 Ipratropium-Albuterol Nebulize [Duoneb 0.5 mg-3 mg/3 ml Soln] 3 ml INHALATION RT-QID #120 Ondansetron [Zofran] 4 mg PO Q12HR PRN PRN Reason: Nausea ALPRAZolam [Xanax] 0.5 mg PO TID PRN PRN Reason: Anxiety Pseudoephedrine HCl [Sudafed 24-Hour] 240 mg PO DAILY PRN PRN Reason: Cold Symptoms Ofloxacin 0.3% Ophth Soln [Ocuflox Ophth Soln] 5 drops BOTH EARS BID Triamcinolone 0.1% Ointment [Kenalog 0.1% Ointment] 1 applic TOPICAL BID Sulfamethox-Tmp 800-160Mg [Bactrim DS 800-160 mg] 1 tab PO Q12H Benzedrex 1 dose EA NOSTRIL Q4H PRN PRN Reason: Congestion Albuterol Inhaler [Ventolin Hfa Inhaler] 1 - 2 puff INHALATION RT-QID PRN PRN Reason: Shortness Of Breath Discharge Medication List Benazepril HCl 20 mg PO DAILY 01/24/16 [History] Budesonide [Pulmicort] 0.5 mg INHALATION RT-BID 04/02/18 [History] Formoterol Fumarate [Perforomist] 20 mcg INHALATION RT-BID 04/02/18 [History] Montelukast [Singulair] 10 mg PO HS #30 tab 04/12/18 [Rx] Multivit-Min/FA/Lycopen/Lutein [Centrum Silver Tablet] 1 tab PO DAILY 04/19/18 [History] guaiFENesin [Mucinex] 1,200 mg PO Q12HR PRN 04/19/18 [History] Sodium Chloride 0.65% Nasal [Deep Sea (Saline)] 2 spray NASAL QID PRN spray 04/25/18 [Rx] Fluticasone Nasal [place] [Flonase Nasal [place]] 1 spray EA NOSTRIL DAILY PRN 03/12/19 [History] Ibuprofen [Motrin] 800 mg PO TID PRN 03/12/19 [History] Acetaminophen [Tylenol Extra Strength] 500 mg PO TID PRN 10/09/19 [History] Azelastine HCl [Astepro] 1 spray NASAL HS 10/09/19 [History] Benzonatate [Tessalon Perles] 100 mg PO TID PRN 10/09/19 [History] Furosemide [Lasix] 40 mg PO DAILY PRN 10/09/19 [History] Roflumilast [Daliresp] 500 mcg PO HS 10/09/19 [History] Yupelri 175mcg/3ml 175 mcg INHALATION DAILY@1730 10/09/19 [History] traZODone HCL 75 mg PO HS 10/09/19 [History] Ipratropium-Albuterol Nebulize [Duoneb 0.5 mg-3 mg/3 ml Soln] 3 ml INHALATION RT-QID #120 10/14/19 [Rx] Ondansetron [Zofran] 4 mg PO Q12HR PRN 11/26/19 [History] ALPRAZolam [Xanax] 0.5 mg PO TID PRN 12/12/19 [History] Albuterol Inhaler [Ventolin Hfa Inhaler] 1 - 2 puff INHALATION RT-QID PRN 12/12/19 [History] Benzedrex 1 dose EA NOSTRIL Q4H PRN 12/12/19 [History] Ofloxacin 0.3% Ophth Soln [Ocuflox Ophth Soln] 5 drops BOTH EARS BID 12/12/19 [History] Pseudoephedrine HCl [Sudafed 24-Hour] 240 mg PO DAILY PRN 12/12/19 [History] Sulfamethox-Tmp 800-160Mg [Bactrim DS 800-160 mg] 1 tab PO Q12H 12/12/19 [History] Triamcinolone 0.1% Ointment [Kenalog 0.1% Ointment] 1 applic TOPICAL BID 12/12/19 [History] Follow up Appointment(s)/Referral(s): Gavin Riggs [Primary Care Provider] - 1-2 days Discharge Disposition: DC/TRNS INTERMEDIATE CARE FAC
== END 2019-12-16 11:47 | disposition short-term general hospital (02) | DRG 208 ==
LOC: EC 13:20 → 3SCARD 16:31 → 2SICU 21:07
PROVIDERS: ADMIT Internal Medicine; ATTEND Internal Medicine
PROC: 5A1945Z Respiratory Ventilation, 24-96 Consecutive Hours (ICD-10-PCS; principal; 2019-12-12)
PROC: 0BH17EZ Insertion of Endotracheal Airway into Trachea, Via Natural or Artificial Opening (ICD-10-PCS; 2019-12-12)
PROC: 5A09357 Assistance with Respiratory Ventilation, Less than 24 Consecutive Hours, Continuous Positive Airway Pressure (ICD-10-PCS; 2019-12-12)
PROC: 0DH67UZ Insertion of Feeding Device into Stomach, Via Natural or Artificial Opening (ICD-10-PCS; 2019-12-12)
PROC: 3E0G76Z Introduction of Nutritional Substance into Upper GI, Via Natural or Artificial Opening (ICD-10-PCS; 2019-12-13)
PROC: 02H633Z Insertion of Infusion Device into Right Atrium, Percutaneous Approach (ICD-10-PCS; 2019-12-13)
DX: J44.1 Chronic obstructive pulmonary disease with (acute) exacerbation (principal); J96.21 Acute and chronic respiratory failure with hypoxia; J96.22 Acute and chronic respiratory failure with hypercapnia; N17.9 Acute kidney failure, unspecified; E87.2 Acidosis; Z76.82 Awaiting organ transplant status; M06.9 Rheumatoid arthritis, unspecified; I10 Essential (primary) hypertension; M85.80 Other specified disorders of bone density and structure, unspecified site; G89.29 Other chronic pain; G25.81 Restless legs syndrome; H91.90 Unspecified hearing loss, unspecified ear; Z96.651 Presence of right artificial knee joint; F90.9 Attention-deficit hyperactivity disorder, unspecified type; F41.9 Anxiety disorder, unspecified; R00.0 Tachycardia, unspecified; E86.0 Dehydration; D75.89 Other specified diseases of blood and blood-forming organs; E87.5 Hyperkalemia; M54.9 Dorsalgia, unspecified; E66.9 Obesity, unspecified; D64.9 Anemia, unspecified; Z68.34 Body mass index [BMI] 34.0-34.9, adult; Z71.3 Dietary counseling and surveillance; Z79.899 Other long term (current) drug therapy; Z87.01 Personal history of pneumonia (recurrent); Z99.81 Dependence on supplemental oxygen; Z85.44 Personal history of malignant neoplasm of other female genital organs; Z85.038 Personal history of other malignant neoplasm of large intestine; Z86.718 Personal history of other venous thrombosis and embolism; Z87.19 Personal history of other diseases of the digestive system; Z90.710 Acquired absence of both cervix and uterus; Z90.49 Acquired absence of other specified parts of digestive tract; Z98.890 Other specified postprocedural states; Z87.891 Personal history of nicotine dependence; Z91.048 Other nonmedicinal substance allergy status; Z88.8 Allergy status to other drugs, medicaments and biological substances; Z80.0 Family history of malignant neoplasm of digestive organs; Z82.5 Family history of asthma and other chronic lower respiratory diseases; Z80.49 Family history of malignant neoplasm of other genital organs
CPT/HCPCS: 36415; 36600; 71045; 71046; 80048; 80053; 81001; 82533; 82805; 83605; 83735; 84100; 84478; 84484; 85025; 85027; 85610; 85730; 87040; 87070; 87205; 87502; 93005; 94002; 94003; 94640; 94644; 94660; 96374; 96375; 99285

== ENCOUNTER → 2020-03-19 | Outpatient (CLI) | payer MEDICARE, OTHER | END | disposition home or self-care (01) | LOC: LABWHC1 12:02 | PROVIDERS: ATTEND Physical Medicine & Rehabilitation | DX: Z11.59 Encounter for screening for other viral diseases (principal) | CPT/HCPCS: 87635 ==

== ENCOUNTER 2020-03-23 18:13 | Inpatient (IN) | payer MEDICARE, OTHER ==
[2020-03-23] MEDS ORDERED: ALBUTEROL NEB (CONC) 2.5 MG/0.5 ML INHALATION STA (19:04)
[2020-03-23] MEDS ORDERED: IPRATROPIUM-ALBUTEROL 3 ML NEB INHALATION STA (19:04)
[2020-03-23] MEDS ORDERED: methylPREDNISolone SOD SUCCI 125 MG/2 ML VIAL IV STA (19:04)
--- NOTE | 2020-03-23 19:18 | ED ---
SOB HPI - General Chief Complaint: Shortness of Breath Stated Complaint: SOB Time Seen by Provider: 03/23/20 18:50 Source: patient Mode of arrival: ambulatory Limitations: physical limitation - History of Present Illness Initial Comments: 65-year-old female patient presents to the emergency department today for evaluation of shortness of breath. Patient is have a history of COPD, and is trying to get a lung transplant [facility]. She is oxygen dependent and usually wears 2 L, she did have to increased to 3 L. She quit smoking 10 years ago per Patient states for the last few days she has been experiencing increased shortness of breath and dry cough. Patient states that she was put on antibiotics by her loom setter fourdrinier. States he did send her prescription of steroids today but she has not started this yet. Patient states that she has done all of her usual breathing treatments today without relief. Denies any fever or chills. States that she does have some mild discomfort in her chest. Denies any back pain. Denies any nausea or vomiting. Patient denies any recent rash, abdominal pain, diarrhea, constipation, numbness, tingling, dizziness, weakness, hematuria, dysuria, urinary urgency, urinary frequency, headache, visual changes, or any other complaints. - Related Data Home Medications Medication Instructions Recorded Confirmed Benazepril HCl 20 mg PO DAILY 01/24/16 12/12/19 Budesonide [Pulmicort] 0.5 mg INHALATION RT-BID 04/02/18 12/12/19 Formoterol Fumarate [Perforomist] 20 mcg INHALATION RT-BID 04/02/18 12/12/19 Multivit-Min/FA/Lycopen/Lutein 1 tab PO DAILY 04/19/18 12/12/19 [Centrum Silver Tablet] guaiFENesin [Mucinex] 1,200 mg PO Q12HR PRN 04/19/18 12/12/19 Fluticasone Nasal [place] [Flonase 1 spray EA NOSTRIL DAILY PRN 03/12/19 12/12/19 Nasal [place]] Ibuprofen [Motrin] 800 mg PO TID PRN 03/12/19 12/12/19 Acetaminophen [Tylenol Extra 500 mg PO TID PRN 10/09/19 12/12/19 Strength] Azelastine HCl [Astepro] 1 spray NASAL HS 10/09/19 12/12/19 Benzonatate [Tessalon Perles] 100 mg PO TID PRN 10/09/19 12/12/19 Furosemide [Lasix] 40 mg PO DAILY PRN 10/09/19 12/12/19 Roflumilast [Daliresp] 500 mcg PO HS 10/09/19 12/12/19 Yupelri 175mcg/3ml 175 mcg INHALATION DAILY@1730 10/09/19 12/15/19 traZODone HCL 75 mg PO HS 10/09/19 12/12/19 Ondansetron [Zofran] 4 mg PO Q12HR PRN 11/26/19 12/12/19 ALPRAZolam [Xanax] 0.5 mg PO TID PRN 12/12/19 12/12/19 Albuterol Inhaler (Mhu) [Ventolin 1 - 2 puff INHALATION RT-QID PRN 12/12/19 12/12/19 Hfa Inhaler (u)] Benzedrex 1 dose EA NOSTRIL Q4H PRN 12/12/19 12/12/19 Ofloxacin 0.3% Ophth Soln [Ocuflox 5 drops BOTH EARS BID 12/12/19 12/12/19 Ophth Soln] Pseudoephedrine HCl [Sudafed 240 mg PO DAILY PRN 12/12/19 12/12/19 24-Hour] Sulfamethox-Tmp 800-160Mg [Bactrim 1 tab PO Q12H 12/12/19 12/12/19 DS 800-160 mg] Triamcinolone 0.1% Ointment 1 applic TOPICAL BID 12/12/19 12/12/19 [Kenalog 0.1% Ointment] Previous Rx's Medication Instructions Recorded Montelukast [Singulair] 10 mg PO HS #30 tab 04/12/18 Sodium Chloride 0.65% Nasal [Deep 2 spray NASAL QID PRN spray 04/25/18 Sea (Saline)] Ipratropium-Albuterol Nebulize 3 ml INHALATION RT-QID #120 10/14/19 [Duoneb 0.5 mg-3 mg/3 ml Soln] Allergies Allergy/AdvReac Type Severity Reaction Status Date / Time infliximab [From Remicade] Allergy Dyspnea/HIV Verified 12/12/19 14:17 ES propoxyphene [From Darvon] Allergy Rash/Hives Verified 03/23/20 18:26 adhesive tape AdvReac "is hard Verified 12/12/19 14:17 on skin" Review of Systems ROS Statement: Those systems with pertinent positive or pertinent negative responses have been documented in the HPI. ROS Other: All systems not noted in ROS Statement are negative. Past Medical History Past Medical History: Cancer, COPD, Deep Vein Thrombosis (DVT), Hypertension, Pneumonia, Rheumatoid Arthritis (RA) Additional Past Medical History / Comment(s): hearing difficulty currently, colitis, osteopenia, hx cancer of appendix, uses oxygen 2L continuous, waiting for lung transplant due to COPD. 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 chronic back pain, restless leg, History of Any Multi-Drug Resistant Organisms: None Reported Past Surgical History: Appendectomy, Bowel Resection, Hysterectomy, Joint Replacement Additional Past Surgical History / Comment(s): Right knee replacement, partial vulvectomy in 2000, EGD/colonoscopy, lasik eye surgery, right colectomy. Colonoscopy 2016. pain procedure at [facility] with Dr Ty Past Anesthesia/Blood Transfusion Reactions: No Reported Reaction Additional Past Anesthesia/Blood Transfusion Reaction / Comment(s): states is not supposed to have general anesthesia R/T awaiting lung transplant Past Psychological History: ADD/ADHD, Anxiety Smoking Status: Former smoker Past Alcohol Use History: None Reported Past Drug Use History: Marijuana - Past Family History Father Family Medical History: Cancer, COPD Additional Family Medical History / Comment(s): COLON cancer Mother Family Medical History: Cancer Additional Family Medical History / Comment(s): ESOPHAGUS cancer Sister(s) Family Medical History: Cancer Additional Family Medical History / Comment(s): CERVICAL cancer General Exam Limitations: physical limitation General appearance: alert, in no apparent distress, other (This is a well- developed, well-nourished adult female patient in no acute distress. Vital signs upon presentation are temperature) Eye exam: Present: normal appearance, PERRL, EOMI. Absent: scleral icterus, conjunctival injection, periorbital swelling ENT exam: Present: normal exam, normal oropharynx, mucous membranes moist Respiratory exam: Present: wheezes (Faint expiratory wheezing noted in the posterior lung guzman), accessory muscle use (Abdominal), decreased breath sounds (Bilateral). Absent: respiratory distress, rales, rhonchi, stridor Cardiovascular Exam: Present: regular rate, normal rhythm, normal heart sounds. Absent: systolic murmur, diastolic murmur, rubs, gallop, clicks GI/Abdominal exam: Present: soft, normal bowel sounds. Absent: distended, tenderness, guarding, rebound, rigid Neurological exam: Present: alert, oriented X3, CN II-XII intact Psychiatric exam: Present: normal affect, normal mood Skin exam: Present: warm, dry, intact, normal color. Absent: rash Course Vital Signs 03/23/20 03/23/20 03/23/20 18:22 19:30 19:44 Temperature 98.5 F Pulse Rate 90 81 96 Respiratory 22 22 Rate Blood Pressure 107/57 124/69 O2 Sat by Pulse 98 98 Oximetry 03/23/20 03/23/20 03/23/20 19:52 20:00 20:07 Temperature Pulse Rate 90 90 Respiratory 22 24 Rate Blood Pressure 123/68 O2 Sat by Pulse 98 Oximetry 03/23/20 03/23/20 03/23/20 20:50 21:00 22:00 Temperature 98.2 F Pulse Rate 95 92 72 Respiratory 30 H 24 24 Rate Blood Pressure 121/61 121/61 126/66 O2 Sat by Pulse 96 95 96 Oximetry 03/23/20 03/24/20 03/24/20 23:00 01:17 01:26 Temperature Pulse Rate 91 100 100 Respiratory 24 Rate Blood Pressure 125/84 O2 Sat by Pulse 96 Oximetry Medical Decision Making - Medical Decision Making 65-year-old female patient presents to the emergency department today for evaluation of shortness of breath. Patient does have history of COPD. Labs reviewed and showed elevated white blood cell count of 14,000. Otherwise unremarkable. Chest x-ray showed minimal pulmonary fibrotic changes with no heart failure. Patient did receive breathing treatments and IV steroids here in the emergency department. Upon reevaluation she does report mild improvement of symptoms. Patient still remains tachypnea With abdominal accessory muscle use. We'll admit to the hospital for COPD exacerbation evaluation by pulmonology. Patient is agreeable with this plan. - Lab Data Result diagrams: 03/23/20 19:17 03/23/20 19:17 Lab Results 05/26/20 05/26/20 05/26/20 Range/Units 19:17 19:17 19:17 WBC 14.1 H (3.8-10.6) k/uL RBC 3.64 L (3.80-5.40) m/uL Hgb 11.0 L (11.4-16.0) gm/dL Hct 35.3 (34.0-46.0) % MCV 96.8 (80.0-100.0) fL MCH 30.2 (25.0-35.0) pg MCHC 31.2 (31.0-37.0) g/dL RDW 15.5 (11.5-15.5) % Plt Count 257 (150-450) k/uL Neutrophils % 71 % Lymphocytes % 17 % Monocytes % 6 % Eosinophils % 3 % Basophils % 0 % Neutrophils # 10.1 H (1.3-7.7) k/uL Lymphocytes # 2.4 (1.0-4.8) k/uL Monocytes # 0.8 (0-1.0) k/uL Eosinophils # 0.5 (0-0.7) k/uL Basophils # 0.0 (0-0.2) k/uL Hypochromasia Slight PT 9.3 (9.0-12.0) sec INR 0.9 (<1.2) APTT 22.6 (22.0-30.0) sec Sodium 137 (137-145) mmol/L Potassium 4.7 (3.5-5.1) mmol/L Chloride 99 (98-107) mmol/L Carbon Dioxide 32 H (22-30) mmol/L Anion Gap 6 mmol/L BUN 25 H (7-17) mg/dL Creatinine 0.64 (0.52-1.04) mg/dL Est GFR (CKD-EPI)AfAm >90 (>60 ml/min/1.73 sqM) Est GFR (CKD-EPI)NonAf >90 (>60 ml/min/1.73 sqM) Glucose 92 (74-99) mg/dL Plasma Lactic Acid Osmani (0.7-2.0) mmol/L Calcium 9.5 (8.4-10.2) mg/dL Magnesium 1.8 (1.6-2.3) mg/dL Total Bilirubin 0.4 (0.2-1.3) mg/dL AST 25 (14-36) U/L ALT 14 (4-34) U/L Alkaline Phosphatase 52 (38-126) U/L Troponin I (0.000-0.034) ng/mL Total Protein 6.9 (6.3-8.2) g/dL Albumin 3.8 (3.5-5.0) g/dL 03/23/20 03/23/20 Range/Units 19:17 19:17 WBC (3.8-10.6) k/uL RBC (3.80-5.40) m/uL Hgb (11.4-16.0) gm/dL Hct (34.0-46.0) % MCV (80.0-100.0) fL MCH (25.0-35.0) pg MCHC (31.0-37.0) g/dL RDW (11.5-15.5) % Plt Count (150-450) k/uL Neutrophils % % Lymphocytes % % Monocytes % % Eosinophils % % Basophils % % Neutrophils # (1.3-7.7) k/uL Lymphocytes # (1.0-4.8) k/uL Monocytes # (0-1.0) k/uL Eosinophils # (0-0.7) k/uL Basophils # (0-0.2) k/uL Hypochromasia PT (9.0-12.0) sec INR (<1.2) APTT (22.0-30.0) sec Sodium (137-145) mmol/L Potassium (3.5-5.1) mmol/L Chloride (98-107) mmol/L Carbon Dioxide (22-30) mmol/L Anion Gap mmol/L BUN (7-17) mg/dL Creatinine (0.52-1.04) mg/dL Est GFR (CKD-EPI)AfAm (>60 ml/min/1.73 sqM) Est GFR (CKD-EPI)NonAf (>60 ml/min/1.73 sqM) Glucose (74-99) mg/dL Plasma Lactic Acid Osmani 0.8 (0.7-2.0) mmol/L Calcium (8.4-10.2) mg/dL Magnesium (1.6-2.3) mg/dL Total Bilirubin (0.2-1.3) mg/dL AST (14-36) U/L ALT (4-34) U/L Alkaline Phosphatase (38-126) U/L Troponin I <0.012 (0.000-0.034) ng/mL Total Protein (6.3-8.2) g/dL Albumin (3.5-5.0) g/dL - EKG Data -: EKG Interpreted by Me EKG Comments: EKG obtained in 1905 shows sinus rhythm with premature ventricular complexes. Ventricular rate is 85, FL interval 126, QRS duration 66, QT 360, QTC 428. No evidence of ST elevation or depression. - Radiology Data Radiology results: report reviewed, image reviewed Two-view x-ray of the chest is obtained. Report was reviewed in its entirety. Impression by Dr. Lomeli shows minimal pulmonary fibrotic changes. Inspir ation improved compared to last exam. No heart failure. Disposition Clinical Impression: COPD exacerbation Disposition: ADMITTED IP TO THIS [facility] Condition: Serious Decision to Admit Reason: Admit from EC Decision Date: 03/23/20 Decision Time: 21:19
[2020-03-23] MEDS ORDERED: LIDOCAINE/EPINEPHR/TETRACAINE 5 ML BOTTLE TOPICAL ONE (19:41)
[2020-03-23 19:45] LABS: Basophils % (A) 0 %; Eosinophils # (A) 0.5 k/uL (0-0.7); Eosinophils % (A) 3 %; HCT 35.3 % (34.0-46.0); Hypochromasia Slight; Lymphocytes # (A) 2.4 k/uL (1.0-4.8); Lymphocytes % (A) 17 %; MCH 30.2 pg (25.0-35.0); MCHC 31.2 g/dL (31.0-37.0); MCV 96.8 fL (80.0-100.0); Mean Platelet Volume 9.2; Monocytes # (A) 0.8 k/uL (0-1.0); Monocytes % (A) 6 %; Neutrophils # (A) 10.1 k/uL (1.3-7.7); Neutrophils % (A) 71 %; Platelet Count 257 k/uL (150-450); RBC 3.64 m/uL (3.80-5.40); RDW 15.5 % (11.5-15.5); WBC 14.1 k/uL (3.8-10.6)
[2020-03-23 19:53] LABS: ALT 14 U/L (4-34); AST 25 U/L (14-36); African American GFR (CKD) >90 (>60 ml/min/1.73 sqM); Albumin 3.8 g/dL (3.5-5.0); Alkaline Phosphatase 52 U/L (38-126); Anion Gap 6 mmol/L; Blood Urea Nitrogen 25 mg/dL (7-17); Calcium 9.5 mg/dL (8.4-10.2); Carbon Dioxide 32 mmol/L (22-30); Chloride 99 mmol/L (98-107); Glucose 92 mg/dL (74-99); Magnesium 1.8 mg/dL (1.6-2.3); Non-African American GFR(CKD) >90 (>60 ml/min/1.73 sqM); Potassium 4.7 mmol/L (3.5-5.1); Sodium 137 mmol/L (137-145); Total Bilirubin 0.4 mg/dL (0.2-1.3); Total Protein 6.9 g/dL (6.3-8.2)
[2020-03-23 19:59] LABS: INR 0.9 (<1.2); Partial Thromboplastin Time 22.6 sec (22.0-30.0); Prothrombin Time 9.3 sec (9.0-12.0)
--- NOTE | 2020-03-23 20:22 | XR ---
EXAMINATION TYPE: XR chest 2V DATE OF EXAM: 03/23/2020 COMPARISON: 12/16/2019 HISTORY: Difficulty breathing TECHNIQUE: FINDINGS: There is no heart failure nor confluent pneumonic infiltrate. There is slight coarsening of the lung markings at the lung bases. Heart size is fairly normal. Thoracic aorta is atheromatous. IMPRESSION: Minimal pulmonary fibrotic changes. Inspiration improved compared to last exam. No heart failure.
[2020-03-23] MEDS ORDERED: NALOXONE 0.4 MG/ML 1 ML VIAL IV PRN (21:17)
[2020-03-23] MEDS ORDERED: ACETAMINOPHEN TAB 325 MG TAB PO PRN (21:17)
[2020-03-23] MEDS ORDERED: ALPRAZolam 0.5 MG TAB PO STA (22:50)
[2020-03-23] MEDS ORDERED: traZODone HCL 50 MG TAB PO SCH (23:45)
[2020-03-24] MEDS: methylPREDNISolone SOD SUCCI 125 MG/2 ML VIAL IV SCH ×3 (00:35→13:13)
[2020-03-24] MEDS ORDERED: MELATONIN 3 MG TABLET PO SCH (00:45)
[2020-03-24] MEDS ORDERED: ALPRAZolam 0.5 MG TAB PO PRN (00:52)
[2020-03-24] MEDS ORDERED: ACETAMINOPHEN TAB 500 MG TAB PO PRN (00:52)
[2020-03-24] MEDS ORDERED: FUROSEMIDE 40 MG TAB PO PRN (00:52)
[2020-03-24] MEDS: IPRATROPIUM-ALBUTEROL 3 ML NEB INHALATION PRN ×2 (01:17→04:04)
--- NOTE | 2020-03-24 01:31 | P.HPIM ---
History of Present Illness H&P Date: 03/23/20 Chief Complaint: shortness of breath 65-year-old female with end stage COPD on home oxygen, patient candidate for lung transplant at [facility] patient is very hard of hearing . SHe comes in today due to progressive SOB. she admits to wheezing that has been getting worse, denies any coughing or fever. she uses home oxygen at 2 LPM , which she has increased to 3 LPM to help with her SOB. her lung doctor prescribed ABx and steroids. she used the ABx but just received the steroids which she has not used yet. otherwise, denies sick contacts, or recent travel. she uses her inhalers without much improvement denies any leg swelling or pain she has been having progressive worsening of her hearing over the past 1 year. , she was seen by ENT who has inserted ear tubes in her ears. she is not sure what the diagnosis is ,denies any pain or dizziness. otherwise denies any GI bleeding, nausea or vomiting, denies any abd pain or chest pain in the ED , CXR no acute disease. leukocytosis and anemia . patient did not improve much with breathing treatment and will be admitted for further management Review of Systems Pertinent positives as noted in HPI. All other systems were reviewed and are negative Past Medical History Past Medical History: Cancer, COPD, Deep Vein Thrombosis (DVT), Hypertension, Pneumonia, Rheumatoid Arthritis (RA) Additional Past Medical History / Comment(s): hearing difficulty currently, colitis, osteopenia, hx cancer of appendix, uses oxygen 2L continuous, waiting for lung transplant due to COPD. 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 chronic back pain, restless leg, History of Any Multi-Drug Resistant Organisms: None Reported Past Surgical History: Appendectomy, Bowel Resection, Hysterectomy, Joint Replacement Additional Past Surgical History / Comment(s): Right knee replacement, partial vulvectomy in 2000, EGD/colonoscopy, lasik eye surgery, right colectomy. Colonoscopy 2017. pain procedure at [facility] with Dr Ty Past Anesthesia/Blood Transfusion Reactions: No Reported Reaction Additional Past Anesthesia/Blood Transfusion Reaction / Comment(s): states is not supposed to have general anesthesia R/T awaiting lung transplant Past Psychological History: ADD/ADHD, Anxiety Smoking Status: Former smoker Past Alcohol Use History: None Reported Past Drug Use History: Marijuana - Past Family History Father Family Medical History: Cancer, COPD Additional Family Medical History / Comment(s): COLON cancer Mother Family Medical History: Cancer Additional Family Medical History / Comment(s): ESOPHAGUS cancer Sister(s) Family Medical History: Cancer Additional Family Medical History / Comment(s): CERVICAL cancer Medications and Allergies Home Medications Medication Instructions Recorded Confirmed Type Benazepril HCl 20 mg PO DAILY 01/24/16 12/12/19 History Budesonide [Pulmicort] 0.5 mg INHALATION RT-BID 04/02/18 12/12/19 History Formoterol Fumarate [Perforomist] 20 mcg INHALATION RT-BID 04/02/18 12/12/19 History Montelukast [Singulair] 10 mg PO HS #30 tab 04/12/18 12/12/19 Rx Multivit-Min/FA/Lycopen/Lutein 1 tab PO DAILY 04/19/18 12/12/19 History [Centrum Silver Tablet] guaiFENesin [Mucinex] 1,200 mg PO Q12HR PRN 04/19/18 12/12/19 History Sodium Chloride 0.65% Nasal [Deep 2 spray NASAL QID PRN spray 04/25/18 12/12/19 Rx Sea (Saline)] Fluticasone Nasal [place] [Flonase 1 spray EA NOSTRIL DAILY PRN 03/12/19 12/12/19 History Nasal [place]] Ibuprofen [Motrin] 800 mg PO TID PRN 03/12/19 12/12/19 History Acetaminophen [Tylenol Extra 500 mg PO TID PRN 10/09/19 12/12/19 History Strength] Azelastine HCl [Astepro] 1 spray NASAL HS 10/09/19 12/12/19 History Benzonatate [Tessalon Perles] 100 mg PO TID PRN 10/09/19 12/12/19 History Furosemide [Lasix] 40 mg PO DAILY PRN 10/09/19 12/12/19 History Roflumilast [Daliresp] 500 mcg PO HS 10/09/19 12/12/19 History Yupelri 175mcg/3ml 175 mcg INHALATION DAILY@1730 10/09/19 12/15/19 History traZODone HCL 75 mg PO HS 10/09/19 12/12/19 History Ipratropium-Albuterol Nebulize 3 ml INHALATION RT-QID #120 10/14/19 12/12/19 Rx [Duoneb 0.5 mg-3 mg/3 ml Soln] Ondansetron [Zofran] 4 mg PO Q12HR PRN 11/26/19 12/12/19 History ALPRAZolam [Xanax] 0.5 mg PO TID PRN 12/12/19 12/12/19 History Albuterol Inhaler (Mhu) [Ventolin 1 - 2 puff INHALATION RT-QID PRN 12/12/19 12/12/19 History Hfa Inhaler (u)] Benzedrex 1 dose EA NOSTRIL Q4H PRN 12/12/19 12/12/19 History Ofloxacin 0.3% Ophth Soln [Ocuflox 5 drops BOTH EARS BID 12/12/19 12/12/19 History Ophth Soln] Pseudoephedrine HCl [Sudafed 240 mg PO DAILY PRN 12/12/19 12/12/19 History 24-Hour] Sulfamethox-Tmp 800-160Mg [Bactrim 1 tab PO Q12H 12/12/19 12/12/19 History DS 800-160 mg] Triamcinolone 0.1% Ointment 1 applic TOPICAL BID 12/12/19 12/12/19 History [Kenalog 0.1% Ointment] Allergies Allergy/AdvReac Type Severity Reaction Status Date / Time infliximab [From Remicade] Allergy Dyspnea/HIV Verified 12/12/19 14:17 ES propoxyphene [From Darvon] Allergy Rash/Hives Verified 03/23/20 18:26 adhesive tape AdvReac "is hard Verified 12/12/19 14:17 on skin" Physical Exam Vitals: Vital Signs Temp Pulse Resp BP Pulse Ox 03/23/20 20:50 98.2 F 95 30 H 121/61 96 03/23/20 20:07 24 03/23/20 20:00 90 22 123/68 98 03/23/20 19:52 90 03/23/20 19:44 96 03/23/20 19:30 81 22 124/69 98 03/23/20 18:22 98.5 F 90 22 107/57 98 Intake and Output 05/03/23/20 03/24/20 14:59 22:59 06:59 Other: Weight 71.214 kg Constitutional: No acute distress, conversant, pleasant Eyes: Anicteric sclerae, moist conjunctiva, no lid-lag Pupils equal round reactive to light ENMT: NC/AT scope used examined the ear right ear has tympanic membrane tube no drainage with blockage with earwax, left ear a few completely blocked with clotted blood patient is aware as this is chronic Oropharynx clear, no erythema, or exudates Neck: Supple, FROM, no masses, or JVD No carotid bruits No thyromegaly Lungs: Diminished breath sounds throughout with prolonged expiratory phase and wheezing Clear to percussion Patient using accessory muscles of respiration Cardiovascular: Heart regular in rate and rhythm, No murmurs, gallops, or rubs No peripheral edema Abdominal: Soft Nontender, no guarding, rebound or rigidity Abdomen moving with respiration Normoactive bowel sounds No hepatomegaly, No splenomegaly No palpable mass No abdominal wall hernia noted Skin: Normal temperature, tone, texture, turgor No induration No subcutaneous nodules No rash, lesions No ulcers Extremities: No digital cyanosis No clubbing Pedal pulses intact and symmetrical Radial pulses intact and symmetrical No calf tenderness Psychiatric: Alert and oriented to person, place and time Appropriate affect fair judgement Neuro Muscles Strength 5/5 in all 4 extremities Sensation to light touch grossly present throughout Cranial nerves II-XII grossly intact No focal sensory deficits Lymphatics: no palpable cervical or supraclavicular , or inguinal lymph nodes Results CBC & Chem 7: 03/23/20 19:17 03/23/20 19:17 Labs: Abnormal Lab Results - Last 24 Hours (Table) 03/23/20 03/23/20 Range/Units 19:17 19:17 WBC 14.1 H (3.8-10.6) k/uL RBC 3.64 L (3.80-5.40) m/uL Hgb 11.0 L (11.4-16.0) gm/dL Neutrophils # 10.1 H (1.3-7.7) k/uL Carbon Dioxide 32 H (22-30) mmol/L BUN 25 H (7-17) mg/dL Assessment and Plan Assessment: 65-year-old female with advanced COPD on home oxygen, hypertension and hearing loss comes in due to progressive shortness of breath not improving with breathing treatments admitted for acute COPD exacerbation with anticipated length of stay more than 2 midnights acute COPD exacerabtion acute on chronic hypoxic respiratory failure end stage COPD breathing treatment around the [facility] resume montelukast supportive care supplemental oxygen systemic steroids pulm consult chronic conditions hypertension endstage COPD hearing loss, OP follow up chronic anemia , monitor Hgb, denies GI bleeding resume home meds verify home meds CODE STATUS:full code DVT prophylaxis: heparin sc tid Discussed with: Patient, ER, RN Anticipated length of stay > than [address]: home A total of 75 minutes was spent on the care of this complex patient more than 50% of the time was spent in counseling and care coordination.
[2020-03-24] MEDS: IPRATROPIUM-ALBUTEROL 3 ML NEB INHALATION SCH ×2 (07:45→11:25)
[2020-03-24] MEDS ORDERED: HEPARIN SODIUM,PORCINE 5,000 UNIT/ML 1 ML VIAL SQ SCH (08:00)
[2020-03-24] MEDS ORDERED: FORMOTEROL FUMARATE 20 MCG/2 ML NEBU INHALATION SCH (08:00)
[2020-03-24] MEDS ORDERED: BUDESONIDE 0.5 MG/2 ML NEBU INHALATION SCH (08:00)
[2020-03-24 08:15] VITALS: BP 151/67; RESP 20; TEMP 97.6
[2020-03-24] MEDS ORDERED: BENZONATATE 100 MG CAP PO PRN (09:00)
[2020-03-24] MEDS ORDERED: FLUTICASONE 50MCG/SPRAY NASAL 16GM EA NOSTRIL PRN (09:00)
[2020-03-24] MEDS ORDERED: guaiFENesin 600 MG TABLET.ER PO PRN (09:00)
[2020-03-24] MEDS ORDERED: LISINOPRIL 20 MG TAB PO SCH (09:00)
[2020-03-24 11:37] VITALS: PULSE 100
[2020-03-24 12:21] LABS: Glucose,Whole Blood 255 mg/dL (75-99)
[2020-03-24] MEDS ORDERED: INSULIN ASPART (NovoLOG) 100 UNIT/ML VIAL SQ SCH (12:30)
--- NOTE | 2020-03-24 13:42 | P.DS ---
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 In the emergency department she underwent an extensive evaluation. On arrival her vital signs within normal limits. Laboratory analysis showed white blood cell count of 14.1, hemoglobin 11, carbon dioxide 32, BUN 25. Her chest x-ray showed minimal pulmonary fibrotic changes but no acute process. She was started on breathing treatments and IV steroids. She was admitted for further monitoring. Of note she had called Dr. Goodman and was given a prescription for steroids and antibiotics. However she did not start this prescription yet and came to the hospital. By the morning of 03/24 she had a rapid improvement in her breathing. She was seen by Dr. Cade and cleared for discharge. Patient will complete her previously prescribed prednisone sent to [facility] on 03/23. She will follow-up with Dr. Goodman in [address] Riggs in 3-5 days. Patient seen and examined at bedside. Shortness of breath improved from yesterday and asking to go home. No chest pain, wheezing is back to baseline. Vital signs reviewed and stable. General: non toxic, no distress, appears older than stated age Derm: warm, dry Head: atraumatic, normocephalic, symmetric Eyes: EOMI, no lid lag, anicteric sclera Mouth: no lip lesion, mucus membranes moist Cardiovascular: S1S2 reg, no murmur, positive posterior tibial pulse bilateral, Lungs: faint bilateral expiratory wheeze, no rhonchi, no rales , no accessory muscle use Abdominal: soft, nontender to palpation, no guarding, no appreciable organomegaly Ext: no gross muscle atrophy, no edema, no contractures Neuro: CN II-XI grossly intact, no focal neuro deficits Psych: Alert, oriented, appropriate affect A total of 25 minutes of time were spent preparing this complex discharge summary . Patient Condition at Discharge: Stable Plan - Discharge Summary New Discharge Prescriptions: New Azelastine HCl [Astepro] 1 spray INTRANASAL HS spr Benzonatate [Tessalon Perles] 100 mg PO TID PRN cap PRN Reason: Cough Doxycycline [Vibramycin] 100 mg PO BID 3 Days #6 capsule Continue Benazepril HCl 20 mg PO DAILY Formoterol Fumarate [Perforomist] 20 mcg INHALATION RT-BID Budesonide [Pulmicort] 0.5 mg INHALATION RT-BID Montelukast [Singulair] 10 mg PO HS #30 tab Multivit-Min/FA/Lycopen/Lutein [Centrum Silver Tablet] 1 tab PO DAILY guaiFENesin [Mucinex] 1,200 mg PO HS Sodium Chloride 0.65% Nasal [Deep Sea (Saline)] 2 spray NASAL QID PRN spray PRN Reason: Dry Nasal Passages Fluticasone Nasal [place] [Flonase Nasal [place]] 1 spray EA NOSTRIL DAILY PRN PRN Reason: Allergy Symptoms Ibuprofen [Motrin] 800 mg PO TID PRN PRN Reason: Pain traZODone HCL 150 mg PO HS PRN PRN Reason: SLEEP Acetaminophen [Tylenol Extra Strength] 500 mg PO TID PRN PRN Reason: Pain Furosemide [Lasix] 40 mg PO DAILY PRN PRN Reason: Edema Roflumilast [Daliresp] 500 mcg PO HS Yupelri 175mcg/3ml 175 mcg INHALATION DAILY@1800 Ipratropium-Albuterol Nebulize [Duoneb 0.5 mg-3 mg/3 ml Soln] 3 ml INHALATION RT-QID #120 Ondansetron [Zofran] 4 mg PO Q12HR PRN PRN Reason: Nausea ALPRAZolam [Xanax] 0.5 mg PO TID PRN PRN Reason: Anxiety Lidocaine 5% Patch [Lidoderm 5% Patch] 1 patch TOPICAL DAILY PRN PRN Reason: BACK PAIN rOPINIRole HCL [Requip] 0.5 mg PO HS PRN PRN Reason: RESTLESS LEGS Discontinued Meloxicam 15 mg PO DAILY PRN PRN Reason: BACK PAIN No Action Azelastine HCl [Astepro] 1 spray NASAL HS Discharge Medication List Benazepril HCl 20 mg PO DAILY 01/24/16 [History] Budesonide [Pulmicort] 0.5 mg INHALATION RT-BID 04/02/18 [History] Formoterol Fumarate [Perforomist] 20 mcg INHALATION RT-BID 04/02/18 [History] Montelukast [Singulair] 10 mg PO HS #30 tab 04/12/18 [Rx] Multivit-Min/FA/Lycopen/Lutein [Centrum Silver Tablet] 1 tab PO DAILY 04/19/18 [History] guaiFENesin [Mucinex] 1,200 mg PO HS 04/19/18 [History] Sodium Chloride 0.65% Nasal [Deep Sea (Saline)] 2 spray NASAL QID PRN spray 04/25/18 [Rx] Fluticasone Nasal [place] [Flonase Nasal [place]] 1 spray EA NOSTRIL DAILY PRN 03/12/19 [History] Ibuprofen [Motrin] 800 mg PO TID PRN 03/12/19 [History] Acetaminophen [Tylenol Extra Strength] 500 mg PO TID PRN 10/09/19 [History] Azelastine HCl [Astepro] 1 spray NASAL HS 10/09/19 [History] Furosemide [Lasix] 40 mg PO DAILY PRN 10/09/19 [History] Roflumilast [Daliresp] 500 mcg PO HS 10/09/19 [History] Yupelri 175mcg/3ml 175 mcg INHALATION DAILY@1800 10/09/19 [History] traZODone HCL 150 mg PO HS PRN 10/09/19 [History] Ipratropium-Albuterol Nebulize [Duoneb 0.5 mg-3 mg/3 ml Soln] 3 ml INHALATION RT-QID #120 10/14/19 [Rx] Ondansetron [Zofran] 4 mg PO Q12HR PRN 11/26/19 [History] ALPRAZolam [Xanax] 0.5 mg PO TID PRN 12/12/19 [History] Azelastine HCl [Astepro] 1 spray INTRANASAL HS spr 03/24/20 [Rx] Benzonatate [Tessalon Perles] 100 mg PO TID PRN cap 03/24/20 [Rx] Doxycycline [Vibramycin] 100 mg PO BID 3 Days #6 capsule 03/24/20 [Rx] Lidocaine 5% Patch [Lidoderm 5% Patch] 1 patch TOPICAL DAILY PRN 03/24/20 [History] rOPINIRole HCL [Requip] 0.5 mg PO HS PRN 03/24/20 [History] Follow up Appointment(s)/Referral(s): Gavin Riggs [Primary Care Provider] - 1-2 days Activity/Diet/Wound Care/Special Instructions: Activity: as tolerated Diet: heart healthy Special Instructions: Please start the prednisone prescription sent in by Dr. Goodman on 03/23/2020. Discharge Disposition: HOME SELF-CARE
--- NOTE | 2020-03-24 15:38 | CONS ---
CONSULTATION PULMONARY/CRITICAL CARE CONSULTATION: DATE OF SERVICE: 03/24/2020 This is a 65-year-old female well known to our service. She has a history of underlying COPD. Her primary care physician is Dr. Riggs. The patient sees Dr. Goodman in our office. She apparently has been evaluated at [facility] for possible lung transplantation. She has not been listed. She does have chronic hypoxemic respiratory failure and typically wears oxygen at 2 L/minute /. She apparently quit smoking 10 years ago. She has had multiple admissions to the hospital, almost on a regular basis. Anyway, we see her today in the emergency room. She states she is feeling better. She comes in with increasing shortness of breath, chest tightness, wheezing and cough. She is coughing up some phlegm. It is primarily white. She denies coughing up any blood. She denies any fever or chills. She denies any chest pain or chest discomfort. She denies any nausea, vomiting, diarrhea or abdominal pain. She also denies all genitourinary complaints. She has been seen by the hospitalist, Dr. Elise. MEDICATIONS: Her home medications are reviewed. She is on benazepril, Pulmicort Respules, Perforomist solution, multiple vitamins, Mucinex, Flonase, ibuprofen, Tylenol, Astepro, Tessalon Perles, Lasix, Daliresp, Yupelri, trazodone, Zofran, Xanax, albuterol inhaler, Benzedrex, eye drops, Sudafed, Bactrim and Kenalog ointment. She has also been on Singulair, nasal saline rinse and updrafts in the past. ALLERGIES: MULTIPLE and include INFLIXIMAB, PROPOXYPHENE, ADHESIVE TAPE. PAST MEDICAL HISTORY: Positive for COPD, DVT, hypertension, pneumonia, rheumatoid arthritis, colitis, hearing loss, osteopenia, appendiceal cancer, chronic hypoxemic respiratory failure, vulvar cancer and chronic back pain. She also has restless legs syndrome. She has not been listed yet for lung transplantation -- only evaluated. SURGICAL HISTORY: Surgical history includes appendectomy, bowel resection, hysterectomy, joint replacement, partial lobectomy, EGD/colonoscopy, LASIK eye surgery, colonoscopy and pain procedures by Dr. Melony snowden at [facility]. SOCIAL HISTORY: Positive for previous tobacco use. She quit many years back. She denies any alcohol use. Does use marijuana from time to time. FAMILY HISTORY: Positive for father with colon cancer and COPD. Mother with esophageal cancer and a sister with cervical cancer. REVIEW OF SYSTEMS: CONSTITUTIONAL: Negative. NEUROLOGIC: Negative. HEENT: Negative. CARDIOVASCULAR: Negative. PULMONARY: Shortness of breath, cough, wheezing, chest tightness, occasional white phlegm production. GI: Negative. : Negative. RHEUMATOLOGIC: Negative. IMMUNOLOGIC: Negative. ENDOCRINOLOGIC: Negative. DERMATOLOGIC: Negative. PHYSICAL EXAMINATION: VITAL SIGNS: Current vital signs are reviewed. Her vital signs include temperature 97.6, heart rate 90, respiratory rate 20, blood pressure 151/67, mean 95, and 3-liter saturation 95%. GENERAL APPEARANCE: Appears in no acute distress. No respiratory distress. No use of accessory muscles, audible wheezing or conversational dyspnea. HEENT: Examination is grossly unremarkable. Mucous membranes are moist. NECK: Supple. Nasal oxygen noted. There is no adenopathy or thyromegaly in the neck area. Neck veins are not distended. CARDIOVASCULAR: Examination reveals regular rhythm and rate. S1, S2 normal. Heart rate about 90 beats per minute. No murmur. LUNGS: Lungs reveal diminished breath sounds. A few scattered rhonchi. No significant wheezes. Breath sounds equal bilaterally but diminished throughout. ABDOMEN: Obese. Bowel sounds are heard. EXTREMITIES Intact. No cyanosis, clubbing or edema. SKIN: Without rash. NEUROLOGIC: Neurologic examination is brief but nonfocal. LABS: Reviewed. White count 14.1, hemoglobin 11, hematocrit 35.3, platelet count 257,000. PT, INR , PTT normal. Sodium 137, potassium 4.7, chloride 99, CO2 32. Anion gap is 6. BUN and creatinine were 25 and 0.64. The rest of the comprehensive metabolic profile is normal. Microbiology is pending or negative. IMAGING: Chest x-ray done on March 23 shows minimal pulmonary fibrotic changes as well as changes of COPD. All in all, the chest x-ray according to the radiologist is improved when compared to an x-ray done in November of this year. CURRENT MEDICATIONS: Current medications are reviewed. From the pulmonary standpoint, she is on Daliresp, Singulair, Solu-Medrol, DuoNeb, Mucinex, formoterol, Pulmicort and Xanax p.r.n. ASSESSMENT: 1. Chronic obstructive pulmonary disease exacerbation complicated by purulent tracheobronchitis, without solomon pneumonia. 2. Previous history of heavy tobacco use with nicotine addiction. 3. History of deep venous thrombosis. 4. History of hypertension. 5. History of rheumatoid arthritis. 6. Prior history of pneumonia. 7. History of appendiceal cancer, status post appendectomy. 8. History of chronic back pain. 9. Restless legs syndrome. 10.Chronic hypoxemic respiratory failure. 11.History of colitis. 12.Osteopenia. 13.Multiple other medical problems and comorbidities. PLAN: From my perspective, the patient is doing reasonably well. There may be a chance for the patient to be discharged home. Medications are reviewed. She does need to follow up with one of us in the office. She typically sees Dr. Goodman. Additional recommendations and suggestions are forthcoming. Prognosis is guarded. We will continue to follow. MMODL / IJN: [id number] /
[2020-03-24] MEDS ORDERED: AZELASTINE 137MCG/SPRAY INTRANASAL SCH (21:00)
[2020-03-24] MEDS ORDERED: NON FORMULARY DRUG (Roflumilast [Daliresp] 500 MCG) PO SCH (21:00)
[2020-03-24] MEDS ORDERED: MONTELUKAST 10 MG TAB PO SCH (21:00)
== END 2020-03-24 15:19 | disposition home or self-care (01) | DRG 190 ==
LOC: EC 18:13 → 4SSUR 21:34
PROVIDERS: ADMIT Internal Medicine; ATTEND Internal Medicine
DX: J44.1 Chronic obstructive pulmonary disease with (acute) exacerbation (principal); J96.21 Acute and chronic respiratory failure with hypoxia; M06.9 Rheumatoid arthritis, unspecified; F90.9 Attention-deficit hyperactivity disorder, unspecified type; G25.81 Restless legs syndrome; H91.90 Unspecified hearing loss, unspecified ear; D64.9 Anemia, unspecified; F41.9 Anxiety disorder, unspecified; I10 Essential (primary) hypertension; M85.80 Other specified disorders of bone density and structure, unspecified site; Z79.899 Other long term (current) drug therapy; Z80.0 Family history of malignant neoplasm of digestive organs; Z80.49 Family history of malignant neoplasm of other genital organs; Z82.5 Family history of asthma and other chronic lower respiratory diseases; Z85.038 Personal history of other malignant neoplasm of large intestine; Z85.44 Personal history of malignant neoplasm of other female genital organs; Z86.718 Personal history of other venous thrombosis and embolism; Z87.01 Personal history of pneumonia (recurrent); Z87.891 Personal history of nicotine dependence; Z90.49 Acquired absence of other specified parts of digestive tract; Z90.710 Acquired absence of both cervix and uterus; Z96.651 Presence of right artificial knee joint; Z99.81 Dependence on supplemental oxygen; Z79.51 Long term (current) use of inhaled steroids
CPT/HCPCS: 36415; 71046; 80053; 83605; 83735; 84484; 85025; 85610; 85730; 87635; 93005; 94640; 96372; 96374; 96376; 99285

== ENCOUNTER → 2020-04-09 | Day surgery (SDC) | payer MEDICARE, OTHER ==
[2020-04-08 14:26] VITALS: BMI 29.6
[~2020-04-09] MED LIST changes: +KETAMINE 10 MG/ML 20 ML VIAL ONE; +LACTATED RINGERS 1,000 ML IV ONE; +LIDOCAINE 1% (10MG/ML) FOR IV START INTRADERMA PRN; +MIDAZOLAM 2 MG/2 ML VIAL ONE; +OFLOXACIN 0.3% OPHTH DROPS 5 ML BOTTLE BOTH EARS ONE; +PROPOFOL 10 MG/ML 20 ML VIAL IV ONE; +fentaNYL (PF) 50 MCG/ML 2 ML AMP IV PRN; +fentaNYL (PF) 50 MCG/ML 2 ML AMP ONE
--- NOTE | 2020-04-09 00:01 | HP ---
HISTORY AND PHYSICAL CHIEF COMPLAINT: Chronic bilateral serous otitis media. HISTORY OF PRESENT ILLNESS: This patient is a 65-year-old female who was recently seen in my office complaining of having a plugged sensation in both ears. She had previously undergone a bilateral myringotomy with insertion of ventilation tubes in October of 2019. At the time that she was seen in my office, clinical examination of the ears reveals that her tubes appeared to be completely occluded with either wax or dried blood in the left ear and the right tube was completely extruded but it too was occluded. The patient was tried on a course of oral steroids, antibiotics. She was seen back approximately 3 weeks later and at that time, she was still complaining of having fluid in both ears. Examination of the ears revealed chronic bilateral serous otitis media so-called glue ear. The left tube remained occluded. It was therefore recommended the patient undergo a repeat bilateral myringotomy with insertion of ventilation tubes. PAST MEDICAL HISTORY: Past medical history reveals that the patient has allergies to DARVON and REMICADE. Her current medications include: 1. BuSpar. 2. Ipratropium. 3. Albuterol. 4. Singulair. 5. Zofran. 6. Flonase. 7. Motrin. 8. Astelin nasal spray. 9. Trazodone. 10.Benazepril. REVIEW OF SYSTEMS: Cardiovascular system is positive for hypertension. Respiratory system is positive for COPD/emphysema. Gastrointestinal system is positive for GERD, gastroesophageal reflux disorder. Musculoskeletal system is positive for osteoarthritis. PREVIOUS SURGERIES: Previous surgeries include hysterectomy, BMT x1, appendectomy, partial colectomy, right total knee replacement, LASIK surgery, bilateral cataract surgery, colonoscopy, and removal of genital warts. PHYSICAL EXAMINATION: This patient is a 65-year-old female who was alert and cooperative. HEENT EXAMINATION: Patient is normocephalic. Both middle ear spaces are filled with fluid. Pupils are equal, round, and reactive to light and accommodation. Extraocular movements are within normal limits. Intranasal examination reveals moderate to severe septal deviation with compensatory hypertrophy of inferior turbinates with a moderate amount of mucus on the mucous membranes and draining down the posterior pharynx. Examination of the oropharynx, cranial nerves 2 through 12 and the remainder of the head and neck exam are within normal limits. CHEST/CARDIOVASCULAR: Both lung guzman are clear to percussion and auscultation. Patient is in regular sinus rhythm. S1, S2 are present without any murmurs, S3s or S4s. Peripheral pulses are bilaterally symmetrical. ABDOMEN: There is no evidence any masses, megaly or tenderness. Abdomen is soft. Skin is unremarkable. Musculoskeletal and neurological and the remainder of the physical exam is unremarkable. PELVIC/ RECTAL EXAM: The pelvic rectal exam is deferred at this time because the patient has this done on a regular basis at her family physician's office. The remainder of physical exam is essentially unremarkable. IMPRESSION: Chronic bilateral serous otitis media. PLAN: The patient is scheduled to undergo a bilateral myringotomy with insertion of ventilation tubes under IV sedation or general anesthesia, depending upon the anesthesia department's preference. ATTENTION RNS IN THE PRE-SURGICAL AREA: I have not ordered any pre-surgical prophylactic antibiotics for this patient. If the pharmacy department sends any pre- surgical prophylactic antibiotic to the pre-surgical area for this patient, that order should be cancelled and the medication should be returned to the pharmacy department. Please make sure that the patient's account is credited appropriately. I have discussed the risks, benefits and alternative therapies for the above-mentioned procedure and for both sedation/analgesia as well as necessary blood product administration, if indicated, as they pertain to this patient. The patient has indicated his or her understanding and acceptance of the risks and procedures discussed. MMODL / IJN: [id number] /
[2020-04-09 10:01] VITALS: TEMP 98.5
[2020-04-09 10:08] LABS: Glucose,Whole Blood 90 mg/dL (75-99)
[2020-04-09 12:28] VITALS: RESP 17
[2020-04-09 12:45] VITALS: BP 145/82; PULSE 68
--- NOTE | 2020-04-12 01:27 | OP ---
OPERATIVE REPORT DATE OF SURGERY: 04/09/2020. PREOPERATIVE DIAGNOSIS: Chronic bilateral serous otitis media. POSTOPERATIVE DIAGNOSIS: Chronic bilateral serous otitis media. ANESTHESIA: IV sedation with MAC. OPERATIVE PROCEDURE: Bilateral myringotomy with insertion of Activent plastic ventilation tubes. SURGEON: Dr. Tabares. COMPLICATIONS: None. OPERATIVE PROCEDURE: The patient was placed on the operating table in the supine position after uneventful induction and IV sedation, satisfactory general anesthesia was obtained. Next, the operating microscope was brought into position over the patient?s right ear where after insertion of a #3 aural speculum, the external canal was cleansed of all wax and debris. The myringotomy knife was used to make an incision in the anterior inferior quadrant of the right tympanic membrane. The middle ear space was suctioned free of all fluid and a 1.1 mm Rosalva bobbin ventilation tube was inserted without any difficulty. Attention was then directed to the left ear where the same procedure was carried out using the operating microscope, #3 aural speculum, the external auditory canal was cleansed of all wax and debris. The myringotomy knife was used to make an incision in the anterior inferior quadrant of the left tympanic membrane and the middle ear space was suctioned free of all fluid. A 1.1 mm Rosalva bobbin ventilation tube was inserted without any difficulty. At this point, the procedure was terminated. There were no intraoperative complications. The patient tolerated the procedure well and was returned to the recovery room in satisfactory condition. MMODL / IJN: [id number] /
== END ==
LOC: OR 09:38
PROVIDERS: ATTEND Otolaryngology
DX: H65.23 Chronic serous otitis media, bilateral (principal); I10 Essential (primary) hypertension; J43.9 Emphysema, unspecified; K21.9 Gastro-esophageal reflux disease without esophagitis; M06.9 Rheumatoid arthritis, unspecified; Z88.8 Allergy status to other drugs, medicaments and biological substances; Z88.5 Allergy status to narcotic agent; Z79.51 Long term (current) use of inhaled steroids; Z79.899 Other long term (current) drug therapy; Z90.710 Acquired absence of both cervix and uterus; Z90.49 Acquired absence of other specified parts of digestive tract; Z96.651 Presence of right artificial knee joint; Z98.41 Cataract extraction status, right eye; Z98.42 Cataract extraction status, left eye; Z98.890 Other specified postprocedural states
CPT/HCPCS: 69436; J2250; J1100; J2405; J3010; J2704

== ENCOUNTER 2020-04-18 18:00 | Inpatient (IN) | payer MEDICARE, OTHER ==
[2020-04-18] MEDS ORDERED: SODIUM CHLORIDE 0.9% 1,000 ML IV STA (18:16)
[2020-04-18] MEDS ORDERED: IPRATROPIUM-ALBUTEROL 3 ML NEB INHALATION STA (18:16)
[2020-04-18] MEDS ORDERED: methylPREDNISolone SOD SUCCI 125 MG/2 ML VIAL IV STA (18:16)
--- NOTE | 2020-04-18 18:19 | ED ---
General Adult HPI - General Chief complaint: Shortness of Breath Stated complaint: DOMI Time Seen by Provider: 04/18/20 18:05 Source: patient, RN notes reviewed Mode of arrival: EMS Limitations: no limitations - History of Present Illness Initial comments: Patient is a pleasant 65-year-old female presenting to the emergency Department with complaints of difficulty in breathing. Onset of symptoms was yesterday. Patient does have severe COPD and is on a list for lung transplant. Patient has minimal cough. No fevers. No leg pain. Symptoms are similar to previous COPD. No chest pain. There was some dust exposure which may have made symptoms wor se. - Related Data Home Medications Medication Instructions Recorded Confirmed Benazepril HCl 20 mg PO DAILY 01/24/16 04/09/20 Budesonide [Pulmicort] 0.5 mg INHALATION RT-BID 04/02/18 04/09/20 Formoterol Fumarate [Perforomist] 20 mcg INHALATION RT-BID 04/02/18 04/09/20 Multivit-Min/FA/Lycopen/Lutein 1 tab PO DAILY 04/19/18 04/09/20 [Centrum Silver Tablet] Ibuprofen [Motrin] 800 mg PO TID PRN 03/12/19 04/09/20 Roflumilast [Daliresp] 500 mcg PO HS 10/09/19 04/09/20 Yupelri 175mcg/3ml 175 mcg INHALATION DAILY@1800 10/09/19 04/09/20 rOPINIRole HCL [Requip] 0.5 mg PO HS PRN 03/24/20 04/09/20 Cetirizine HCl [Zyrtec] 10 mg PO DAILY 04/08/20 04/09/20 Cholecalciferol [Vitamin D3 (25 1,000 unit PO DAILY 04/08/20 04/09/20 Mcg = 1000 Iu)] Doxylamine Succinate [Unisom] 25 mg PO HS PRN 04/08/20 04/09/20 Previous Rx's Medication Instructions Recorded Montelukast [Singulair] 10 mg PO HS #30 tab 04/12/18 Ipratropium-Albuterol Nebulize 3 ml INHALATION RT-QID #120 10/14/19 [Duoneb 0.5 mg-3 mg/3 ml Soln] Allergies Allergy/AdvReac Type Severity Reaction Status Date / Time infliximab [From Plumbrde] Allergy Dyspnea/HIV Verified 04/09/20 10:01 ES propoxyphene [From Darvon] Allergy Rash/Hives Verified 04/09/20 10:01 adhesive tape AdvReac "is hard Verified 04/09/20 10:01 on skin" Review of Systems ROS Statement: Those systems with pertinent positive or pertinent negative responses have been documented in the HPI. ROS Other: All systems not noted in ROS Statement are negative. Constitutional: Denies: fever Eyes: Denies: eye pain ENT: Denies: ear pain Respiratory: Reports: as per HPI, dyspnea Cardiovascular: Denies: chest pain Endocrine: Reports: fatigue Gastrointestinal: Denies: abdominal pain Genitourinary: Denies: dysuria Musculoskeletal: Denies: back pain Skin: Denies: rash Neurological: Denies: weakness Past Medical History Past Medical History: Cancer, COPD, Deep Vein Thrombosis (DVT), Hypertension, Pneumonia, Rheumatoid Arthritis (RA) Additional Past Medical History / Comment(s): hearing difficulty currently, colitis, osteopenia, hx cancer of appendix, uses oxygen 2L continuous, waiting for lung transplant due to COPD, 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 chronic back pain, restless leg, recent admission for exacerbation of COPD History of Any Multi-Drug Resistant Organisms: None Reported Past Surgical History: Appendectomy, Bowel Resection, Hysterectomy, Joint Replacement Additional Past Surgical History / Comment(s): Right knee replacement, partial vulvectomy in 2000, EGD/colonoscopy, lasik eye surgery, right colectomy. Colonoscopy 2016. pain procedure at [facility] with Dr Ty Past Anesthesia/Blood Transfusion Reactions: No Reported Reaction Additional Past Anesthesia/Blood Transfusion Reaction / Comment(s): states is not supposed to have general anesthesia R/T awaiting lung transplant Past Psychological History: ADD/ADHD, Anxiety Smoking Status: Former smoker Past Alcohol Use History: None Reported Past Drug Use History: None Reported - Past Family History Father Family Medical History: Cancer, COPD Additional Family Medical History / Comment(s): COLON cancer Mother Family Medical History: Cancer Additional Family Medical History / Comment(s): ESOPHAGUS cancer Sister(s) Family Medical History: Cancer Additional Family Medical History / Comment(s): CERVICAL cancer General Exam Limitations: no limitations General appearance: alert Head exam: Present: normocephalic Eye exam: Present: normal appearance Neck exam: Present: normal inspection Respiratory exam: Present: decreased breath sounds Cardiovascular Exam: Present: regular rate, normal rhythm GI/Abdominal exam: Present: soft. Absent: tenderness Extremities exam: Present: normal inspection. Absent: pedal edema, calf tenderness Neurological exam: Present: alert Psychiatric exam: Present: normal affect, normal mood Skin exam: Present: normal color Course Vital Signs 04/18/20 04/18/20 04/18/20 18:05 18:09 18:23 Temperature 98.3 F Pulse Rate 92 92 Respiratory 20 20 Rate Blood Pressure 171/81 O2 Sat by Pulse 99 Oximetry 04/18/20 18:28 Temperature Pulse Rate 97 Respiratory Rate Blood Pressure O2 Sat by Pulse Oximetry EKG Findings - EKG Comments: EKG Findings:: Sinus rhythm at 98. PVCs present. MD 132. QRS 62. QT 342. QTC 432. Normal axis. Normal QRS. Nonspecific ST-T. Medical Decision Making - Medical Decision Making Patient reevaluated and resting comfortably in bed. Only mild improvement. Patient family updated. Case discussed with Dr. Cortes, who will admit covering for Dr. Hoskins. Patient also sees Dr. Na Nunez in - Lab Data Result diagrams: 04/18/20 18:20 04/18/20 18:20 Lab Results 04/18/20 04/18/20 Range/Units 18:20 18:20 WBC 13.6 H (3.8-10.6) k/uL RBC 3.90 (3.80-5.40) m/uL Hgb 11.9 (11.4-16.0) gm/dL Hct 37.8 (34.0-46.0) % MCV 96.9 (80.0-100.0) fL MCH 30.5 (25.0-35.0) pg MCHC 31.4 (31.0-37.0) g/dL RDW 15.9 H (11.5-15.5) % Plt Count 260 (150-450) k/uL Neutrophils % 76 % Lymphocytes % 15 % Monocytes % 4 % Eosinophils % 3 % Basophils % 0 % Neutrophils # 10.3 H (1.3-7.7) k/uL Lymphocytes # 2.0 (1.0-4.8) k/uL Monocytes # 0.6 (0-1.0) k/uL Eosinophils # 0.4 (0-0.7) k/uL Basophils # 0.0 (0-0.2) k/uL Sodium 135 L (137-145) mmol/L Potassium 4.6 (3.5-5.1) mmol/L Chloride 101 (98-107) mmol/L Carbon Dioxide 27 (22-30) mmol/L Anion Gap 7 mmol/L BUN 20 H (7-17) mg/dL Creatinine 0.66 (0.52-1.04) mg/dL Est GFR (CKD-EPI)AfAm >90 (>60 ml/min/1.73 sqM) Est GFR (CKD-EPI)NonAf >90 (>60 ml/min/1.73 sqM) Glucose 89 (74-99) mg/dL Calcium 9.2 (8.4-10.2) mg/dL Total Bilirubin 0.3 (0.2-1.3) mg/dL AST 25 (14-36) U/L ALT 16 (4-34) U/L Alkaline Phosphatase 64 (38-126) U/L Total Protein 7.0 (6.3-8.2) g/dL Albumin 4.0 (3.5-5.0) g/dL - Radiology Data Radiology results: image reviewed (Chest x-ray shows chronic changes) Disposition Clinical Impression: Acute exacerbation of chronic obstructive airways disease Disposition: ADMITTED IP TO THIS HOSP Is patient prescribed a controlled substance at d/c from ED?: No Referrals: Gavin Riggs [Primary Care Provider] - 1-2 days Decision Time: 19:19
[2020-04-18 18:37] LABS: Basophils % (A) 0 %; Eosinophils # (A) 0.4 k/uL (0-0.7); Eosinophils % (A) 3 %; HCT 37.8 % (34.0-46.0); HGB 11.9 gm/dL (11.4-16.0); Lymphocytes % (A) 15 %; MCH 30.5 pg (25.0-35.0); MCHC 31.4 g/dL (31.0-37.0); MCV 96.9 fL (80.0-100.0); Mean Platelet Volume 8.3; Monocytes # (A) 0.6 k/uL (0-1.0); Monocytes % (A) 4 %; Neutrophils # (A) 10.3 k/uL (1.3-7.7); Neutrophils % (A) 76 %; Platelet Count 260 k/uL (150-450); RDW 15.9 % (11.5-15.5); WBC 13.6 k/uL (3.8-10.6)
[2020-04-18 18:43] LABS: ALT 16 U/L (4-34); AST 25 U/L (14-36); African American GFR (CKD) >90 (>60 ml/min/1.73 sqM); Alkaline Phosphatase 64 U/L (38-126); Anion Gap 7 mmol/L; Blood Urea Nitrogen 20 mg/dL (7-17); Calcium 9.2 mg/dL (8.4-10.2); Carbon Dioxide 27 mmol/L (22-30); Chloride 101 mmol/L (98-107); Glucose 89 mg/dL (74-99); Non-African American GFR(CKD) >90 (>60 ml/min/1.73 sqM); Potassium 4.6 mmol/L (3.5-5.1); Sodium 135 mmol/L (137-145); Total Bilirubin 0.3 mg/dL (0.2-1.3)
--- NOTE | 2020-04-18 19:00 | XR ---
EXAMINATION TYPE: XR chest 2V DATE OF EXAM: 04/18/2020 COMPARISON: Chest x-ray March 23, 2020. HISTORY: Difficulty in breathing. TECHNIQUE: Frontal and lateral views of the chest are obtained. FINDINGS: There is some chronic parenchymal change without suspicious new focal air space opacity, p leural effusion, or pneumothorax seen bilaterally. The cardiac silhouette size is stable and upper l imits of normal with atherosclerotic change in the aortic knob. The osseous structures remain somew hat demineralized with mild compression fracture deformities in the midthoracic spine at peak of curv ature. IMPRESSION: Chronic changes without acute pulmonary process.
[2020-04-18] MEDS: IPRATROPIUM-ALBUTEROL 3 ML NEB INHALATION SCH (20:07)
[2020-04-18] MEDS: MONTELUKAST 10 MG TAB PO SCH (22:23)
[2020-04-18] MEDS: Roflumilast [Daliresp] 500 MCG PO SCH (22:23)
--- NOTE | 2020-04-18 23:25 | P.HPIM ---
History of Present Illness H&P Date: 04/18/20 Chief Complaint: SOB 65 year old female with end stage COPD await lung transplant on 2.5 LPM home oxygen patient comes in with 2 day history of worsening progressive SOB , associated with coughing, denies any chest pain or fever, but does report some chills. denies any nausea vomiting, denies any diarrhea, denies changes in smell and taste sensation. she reports no sick contacts and that she has been staying home and avoiding social contact. however she did visit [facility] for routine visit to pulmonary last week . currently she still feels very tight when she breaths, she said, that her breathing did not improve at home despite cranking up her oxygen supplement and using her inhalers. now she feels slightly better, since receiving treatment in the ED. patient also reports ear infection and currently on antibiotics ear drops CXR showed chronic changes with no acute changes. EKG showed frequent PVCs blood work showed leukocytosis Review of Systems Pertinent positives as noted in HPI. 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 chronic back pain, restless leg, recent admission for exacerbation of COPD History of Any Multi-Drug Resistant Organisms: None Reported Past Surgical History: Appendectomy, Bowel Resection, Hysterectomy, Joint Replacement Additional Past Surgical History / Comment(s): Right knee replacement, partial vulvectomy in 2000, EGD/colonoscopy, lasik eye surgery, right colectomy. Colonoscopy 2017. pain procedure at [facility] Ass with Dr Ty Past Anesthesia/Blood Transfusion Reactions: No Reported Reaction Additional Past Anesthesia/Blood Transfusion Reaction / Comment(s): states is not supposed to have general anesthesia R/T awaiting lung transplant Past Psychological History: ADD/ADHD, Anxiety Smoking Status: Former smoker Past Alcohol Use History: None Reported Past Drug Use History: None Reported - Past Family History Father Family Medical History: Cancer, COPD Additional Family Medical History / Comment(s): COLON cancer Mother Family Medical History: Cancer Additional Family Medical History / Comment(s): ESOPHAGUS cancer Sister(s) Family Medical History: Cancer Additional Family Medical History / Comment(s): CERVICAL cancer Medications and Allergies Home Medications Medication Instructions Recorded Confirmed Type Benazepril HCl 20 mg PO DAILY 01/24/16 04/18/20 History Budesonide [Pulmicort] 0.5 mg INHALATION RT-BID 04/02/18 04/18/20 History Formoterol Fumarate [Perforomist] 20 mcg INHALATION RT-BID 04/02/18 04/18/20 History Montelukast [Singulair] 10 mg PO HS #30 tab 04/12/18 04/18/20 Rx Multivit-Min/FA/Lycopen/Lutein 1 tab PO DAILY 04/19/18 04/18/20 History [Centrum Silver Tablet] Ibuprofen [Motrin] 800 mg PO TID PRN 03/12/19 04/18/20 History Roflumilast [Daliresp] 500 mcg PO HS 10/09/19 04/18/20 History Yupelri 175mcg/3ml 175 mcg INHALATION DAILY@1800 10/09/19 04/18/20 History rOPINIRole HCL [Requip] 0.5 mg PO HS PRN 03/24/20 04/18/20 History Cetirizine HCl [Zyrtec] 10 mg PO DAILY 04/08/20 04/18/20 History Cholecalciferol [Vitamin D3 (25 1,000 unit PO DAILY 04/08/20 04/18/20 History Mcg = 1000 Iu)] Doxylamine Succinate [Unisom] 25 mg PO HS PRN 04/08/20 04/18/20 History Ipratropium-Albuterol Nebulize 3 ml INHALATION RT-QID PRN 04/18/20 04/18/20 History [Duoneb 0.5 mg-3 mg/3 ml Soln] Allergies Allergy/AdvReac Type Severity Reaction Status Date / Time infliximab [From Remicade] Allergy Dyspnea/HIV Verified 04/18/20 20:43 ES propoxyphene [From Darvon] Allergy Rash/Hives Verified 04/18/20 20:43 adhesive tape AdvReac "is hard Verified 04/18/20 20:43 on skin" Physical Exam Vitals: Vital Signs Temp Pulse Resp BP Pulse Ox 06/21/20 20:17 96 04/18/20 20:08 95 04/18/20 18:28 97 04/18/20 18:23 92 04/18/20 18:09 20 04/18/20 18:05 98.3 F 92 20 171/81 99 Intake and Output 04/18/20 04/18/20 04/18/20 06:59 14:59 22:59 Other: Weight 72.121 kg Constitutional: No acute distress, conversant, pleasant, cooperative Eyes: Anicteric sclerae, moist conjunctiva, Pupils equal round reactive to light ENMT: NC/AT Oropharynx clear, no erythema, or exudates Neck: Supple, FROM, no masses, or JVD No carotid bruits No thyromegaly Lungs: poor breath sounds throughout, with prolonged expiratory phase, and diffuse wheezing Clear to percussion patient using accessory muscle of respiration Cardiovascular: Heart regular in rate and rhythm, No murmurs, gallops, or rubs No peripheral edema Abdominal: Soft Nontender, no guarding, rebound or rigidity Abdomen moving with respiration Normoactive bowel sounds No hepatomegaly, No splenomegaly No palpable mass epigastric abdominal wall hernia noted , reducible soft Skin: Normal temperature, tone, texture, turgor No induration No subcutaneous nodules No rash, lesions No ulcers Extremities: No digital cyanosis No clubbing Pedal pulses intact and symmetrical Radial pulses intact and symmetrical No calf tenderness Psychiatric: Alert and oriented to person, place and time Appropriate affect fair judgement Neuro Muscles Strength 5/5 in all 4 extremities Sensation to light touch grossly present throughout Cranial nerves II-XII grossly intact No focal sensory deficits Lymphatics: no palpable cervical or supraclavicular , or inguinal lymph nodes Results CBC & Chem 7: 04/18/20 18:20 04/18/20 18:20 Labs: Abnormal Lab Results - Last 24 Hours (Table) 04/18/20 04/18/20 Range/Units 18:20 18:20 WBC 13.6 H (3.8-10.6) k/uL RDW 15.9 H (11.5-15.5) % Neutrophils # 10.3 H (1.3-7.7) k/uL Sodium 135 L (137-145) mmol/L BUN 20 H (7-17) mg/dL Assessment and Plan Assessment: 65 year old female with end stage COPD on home oxygen awaiting lung transplant from [facility] acute COPD exacerbation , with end stage COPD chronic hypoxic respiratory failure on home oxygen IV steroids breathing treatments PRN resume home inhalers supplemental oxygen as needed to keep Oxygen sat >92% patient on transplant list at [facility] chronic conditions hypertension , resume home meds chronic ear infection , resume ofloxacin drops CODE STATUS:full code DVT prophylaxis: heparin sc tid Discussed with: Patient, ER, RN Anticipated length of stay > than [address]: home A total of 75 minutes was spent on the care of this complex patient more than 50% of the time was spent in counseling and care coordination.
[2020-04-19] MEDS: IPRATROPIUM-ALBUTEROL 3 ML NEB INHALATION PRN ×2 (00:30→03:44)
[2020-04-19] MEDS: MELATONIN 3 MG TABLET PO SCH ×2 (00:46→20:52)
[2020-04-19] MEDS: methylPREDNISolone SOD SUCCI 125 MG/2 ML VIAL IV SCH ×5 (00:46→23:56)
[2020-04-19] MEDS: HEPARIN SODIUM,PORCINE 5,000 UNIT/ML 1 ML VIAL SQ SCH ×4 (00:47→23:57)
[2020-04-19] MEDS: OFLOXACIN 0.3% OPHTH DROPS 5 ML BOTTLE BOTH EYES SCH ×5 (00:58→23:56)
[2020-04-19] MEDS ORDERED: HYDROcodone/APAP 5-325MG 1 EACH TAB PO STA (03:24)
[2020-04-19] MEDS: LISINOPRIL 20 MG TAB PO SCH (07:38)
[2020-04-19] MEDS: LORATADINE 10 MG TAB PO SCH (07:38)
[2020-04-19] MEDS: FAMOTIDINE 20 MG TAB PO SCH (07:42)
[2020-04-19 07:54] LABS: Basophils % (A) 0 %; Eosinophils # (A) 0.1 k/uL (0-0.7); Eosinophils % (A) 1 %; HCT 34.6 % (34.0-46.0); HGB 10.7 gm/dL (11.4-16.0); Lymphocytes # (A) 0.4 k/uL (1.0-4.8); Lymphocytes % (A) 6 %; MCH 30.4 pg (25.0-35.0); MCHC 30.9 g/dL (31.0-37.0); MCV 98.3 fL (80.0-100.0); Mean Platelet Volume 8.4; Monocytes # (A) 0.1 k/uL (0-1.0); Monocytes % (A) 1 %; Neutrophils # (A) 7.2 k/uL (1.3-7.7); Neutrophils % (A) 93 %; Platelet Count 223 k/uL (150-450); RBC 3.52 m/uL (3.80-5.40); RDW 15.9 % (11.5-15.5); WBC 7.8 k/uL (3.8-10.6)
[2020-04-19 08:09] LABS: ALT 16 U/L (4-34); AST 18 U/L (14-36); African American GFR (CKD) >90 (>60 ml/min/1.73 sqM); Albumin 3.4 g/dL (3.5-5.0); Alkaline Phosphatase 53 U/L (38-126); Anion Gap 6 mmol/L; Blood Urea Nitrogen 19 mg/dL (7-17); Calcium 8.4 mg/dL (8.4-10.2); Carbon Dioxide 26 mmol/L (22-30); Chloride 106 mmol/L (98-107); Glucose 145 mg/dL (74-99); Non-African American GFR(CKD) >90 (>60 ml/min/1.73 sqM); Potassium 4.9 mmol/L (3.5-5.1); Sodium 138 mmol/L (137-145); Total Bilirubin 0.3 mg/dL (0.2-1.3); Total Protein 6.3 g/dL (6.3-8.2)
--- NOTE | 2020-04-19 08:35 | P.PN ---
Subjective Progress Note Date: 04/19/20 Principal diagnosis: COPD exacerbation Patient seen and examined at bedside.65 year old female with end stage COPD await lung transplant on 2.5 LPM home oxygen. Patient states that her breathing is slightly better with treatment. Patient denies chest pain, nausea, fever, chills, diarrhea, constipation, or abdominal pain. Blood pressure this morning is slightly elevated but patient has not taken her morning blood pressure medications yet. White blood cell count is down to 7.8 from 13.6 Objective - Vital Signs Vital signs: Vital Signs Temp 98.2 F 04/19/20 02:15 Pulse 89 04/19/20 07:00 Resp 18 04/19/20 07:00 BP 150/78 04/19/20 07:00 Pulse Ox 98 04/19/20 07:00 Intake & Output 04/18/20 04/19/20 04/19/20 18:59 06:59 18:59 Intake Total 840 Balance 840 Weight 72.121 kg 72.121 kg Intake: Intake, IV Titration 750 Amount Sodium Chloride 0.9% 1, 750 000 ml @ 75 mls/hr IV . [id number] STA Rx#:[id number] Oral 90 Other: Voiding Method Toilet # Voids 1 - Exam General: [non toxic], [no distress], [appears at stated age] Derm: [warm], [dry] Head: [atraumatic], [normocephalic], [symmetric] Eyes: [EOMI], [no lid lag], [anicteric sclera] Mouth: [no lip lesion], [mucus membranes moist] Cardiovascular: [S1S2 reg], [no murmur], [positive posterior tibial pulse bila teral], Lungs: [diminished breath sounds with bilateral expiratory wheezing ], [no rhonchi, no rales] , [no accessory muscle use] Abdominal: [soft], [ nontender to palpation], [no guarding], [no appreciable organomegaly] Ext: [no gross muscle atrophy], [no edema], [no contractures] Neuro: [ CN II-XI grossly intact], [no focal neuro deficits] Psych: [Alert], [oriented], [appropriate affect] - Labs CBC & Chem 7: 04/19/20 07:42 04/19/20 07:42 Labs: Abnormal Lab Results - Last 24 Hours (Table) 04/18/20 04/18/20 04/19/20 Range/Units 18:20 18:20 07:42 WBC 13.6 H (3.8-10.6) k/uL RBC (3.80-5.40) m/uL Hgb (11.4-16.0) gm/dL MCHC (31.0-37.0) g/dL RDW 15.9 H (11.5-15.5) % Neutrophils # 10.3 H (1.3-7.7) k/uL Lymphocytes # (1.0-4.8) k/uL Sodium 135 L (137-145) mmol/L BUN 20 H 19 H (7-17) mg/dL Glucose 145 H (74-99) mg/dL Albumin 3.4 L (3.5-5.0) g/dL 04/19/20 Range/Units 07:42 WBC (3.8-10.6) k/uL RBC 3.52 L (3.80-5.40) m/uL Hgb 10.7 L (11.4-16.0) gm/dL MCHC 30.9 L (31.0-37.0) g/dL RDW 15.9 H (11.5-15.5) % Neutrophils # (1.3-7.7) k/uL Lymphocytes # 0.4 L (1.0-4.8) k/uL Sodium (137-145) mmol/L BUN (7-17) mg/dL Glucose (74-99) mg/dL Albumin (3.5-5.0) g/dL Assessment and Plan Assessment: 1. Acute exacerbation of COPD with end-stage COPD Chronic hypoxic respiratory failure on home oxygen Continue IV steroids Continue breathing treatments Patient is on the transplant list to [facility] 2. Hypertension elevated this a.m. patient has yet to take morning medications Continue to monitor blood pressure 3. Chronic otitis Externa Continue ofloxacin drops 4. GI and DVT prophylaxis 5. A.m. labs Time with Patient: Greater than 30
[2020-04-19] MEDS: BUDESONIDE 0.5 MG/2 ML NEBU INHALATION SCH ×2 (08:53→21:34)
[2020-04-19] MEDS: FORMOTEROL FUMARATE 20 MCG/2 ML NEBU INHALATION SCH ×2 (08:53→21:49)
[2020-04-19] MEDS: IPRATROPIUM-ALBUTEROL 3 ML NEB INHALATION SCH ×4 (08:53→21:33)
--- NOTE | 2020-04-19 14:51 | P.CNPUL ---
History of Present Illness Consult date: 04/19/20 Requesting physician: Frandy Simpson Reason for consult: dyspnea, hypoxemia Chief complaint: Shortness of breath History of present illness: 65-year-old white female patient with known history of severe oxygen-dependent COPD awaiting lung transplantation baseline FEV1 of 27% of predicted, recurrent hospitalizations for complications related to COPD, former smoker, rheumatoid arthritis, hypertension, history of right colectomy for small bowel obstruction with subsequent wound dehiscence and reclosure, history of vulvar cancer with resection and hysterectomy. Patient had recent bilateral myringotomy with insertion of ventilation tubes. On 04/18/2020 patient presented to the emergency department with increasing shortness of breath, denied any fevers, minimal cough, no chest pain. Patient states she may have had some dust exposure which made her symptoms worse. She had to increase her oxygen flow, she normally wears 2 l per minute of home oxygen, she had to increase it to 3. Despite using her inhalers and breathing treatments and turning her oxygen her breathing did not improve and she called ambulance. Chest x-ray showed chronic changes without acute pulmonary process. Lab work showed a white blood cell count of 13.6, hemoglobin of 11.9, serum sodium was 35, the rest very much choice were within normal limits, B1 is 20 creatinine 0.6, LFTs are within normal limits. Afebrile, hemodynamically stable, she is on 2 L of oxygen with pulse ox of 98%. Patient was started on IV steroids, breathing treatments, he is receiving ofloxacin eardrops. Has some difficulty hearing, but no ear pain. No fever or chills. COVID 19 test was sent and is pending at this time. Patient is ready feeling better today. Breathing easier, she is back down to 2 L. Is awake and alert, no altered mentation, lung sounds reveal a few scattered wheezes, no significant cough or congestion. Review of Systems All systems: negative Constitutional: Denies chills, Denies fever Eyes: denies blurred vision, denies pain Ears, nose, mouth and throat: Denies headache, Denies sore throat Cardiovascular: Denies chest pain, Denies shortness of breath Respiratory: Reports dyspnea, Denies cough Gastrointestinal: Denies abdominal pain, Denies diarrhea, Denies nausea, Denies vomiting Genitourinary: Denies dysuria, Denies hematuria Musculoskeletal: Denies myalgias Integumentary: Denies pruritus, Denies rash Neurological: Denies numbness, Denies weakness Psychiatric: Denies anxiety, Denies depression Endocrine: Denies fatigue, Denies weight change Past Medical History Past Medical History: Cancer, COPD, Deep Vein Thrombosis (DVT), Hypertension, Pneumonia, Rheumatoid Arthritis (RA) Additional Past Medical History / Comment(s): hearing difficulty currently, colitis, osteopenia, hx cancer of appendix, uses oxygen 2L continuous, waiting for lung transplant due to COPD, 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 chronic back pain, restless leg, recent admission for exacerbation of COPD History of Any Multi-Drug Resistant Organisms: None Reported Past Surgical History: Appendectomy, Bowel Resection, Hysterectomy, Joint Replacement Additional Past Surgical History / Comment(s): Right knee replacement, partial vulvectomy in 2000, EGD/colonoscopy, lasik eye surgery, right colectomy. Colonoscopy 2016. pain procedure at [facility] Ass with Dr Ty Past Anesthesia/Blood Transfusion Reactions: No Reported Reaction Additional Past Anesthesia/Blood Transfusion Reaction / Comment(s): states is not supposed to have general anesthesia R/T awaiting lung transplant Past Psychological History: ADD/ADHD, Anxiety Smoking Status: Former smoker Past Alcohol Use History: None Reported Past Drug Use History: None Reported - Past Family History Father Family Medical History: Cancer, COPD Additional Family Medical History / Comment(s): COLON cancer Mother Family Medical History: Cancer Additional Family Medical History / Comment(s): ESOPHAGUS cancer Sister(s) Family Medical History: Cancer Additional Family Medical History / Comment(s): CERVICAL cancer Medications and Allergies Home Medications Medication Instructions Recorded Confirmed Type Benazepril HCl 20 mg PO DAILY 01/24/16 04/18/20 History Budesonide [Pulmicort] 0.5 mg INHALATION RT-BID 04/02/18 04/18/20 History Formoterol Fumarate [Perforomist] 20 mcg INHALATION RT-BID 04/02/18 04/18/20 History Montelukast [Singulair] 10 mg PO HS #30 tab 04/12/18 04/18/20 Rx Multivit-Min/FA/Lycopen/Lutein 1 tab PO DAILY 04/19/18 04/18/20 History [Centrum Silver Tablet] Ibuprofen [Motrin] 800 mg PO TID PRN 03/12/19 04/18/20 History Roflumilast [Daliresp] 500 mcg PO HS 10/09/19 04/18/20 History Yupelri 175mcg/3ml 175 mcg INHALATION DAILY@1800 10/09/19 04/18/20 History rOPINIRole HCL [Requip] 0.5 mg PO HS PRN 03/24/20 04/18/20 History Cetirizine HCl [Zyrtec] 10 mg PO DAILY 04/08/20 04/18/20 History Cholecalciferol [Vitamin D3 (25 1,000 unit PO DAILY 04/08/20 04/18/20 History Mcg = 1000 Iu)] Doxylamine Succinate [Unisom] 25 mg PO HS PRN 04/08/20 04/18/20 History Ipratropium-Albuterol Nebulize 3 ml INHALATION RT-QID PRN 04/18/20 04/18/20 History [Duoneb 0.5 mg-3 mg/3 ml Soln] Allergies Allergy/AdvReac Type Severity Reaction Status Date / Time infliximab [From Remicade] Allergy Dyspnea/HIV Verified 04/18/20 20:43 ES propoxyphene [From Darvon] Allergy Rash/Hives Verified 04/18/20 20:43 adhesive tape AdvReac "is hard Verified 04/18/20 20:43 on skin" Physical Exam Vitals: Vital Signs Temp Pulse Pulse Resp BP BP Pulse Ox 04/19/20 12:15 92 04/19/20 12:04 88 04/19/20 09:18 92 04/19/20 09:08 92 04/19/20 09:07 92 04/19/20 08:53 92 04/19/20 08:00 89 18 04/19/20 07:00 89 18 150/78 98 04/19/20 03:56 96 04/19/20 03:44 92 04/19/20 02:15 98.2 F 88 20 132/73 98 04/19/20 00:44 96 04/19/20 00:30 100 04/18/20 23:00 98 F 80 22 129/79 96 04/18/20 21:03 98.0 F 80 22 129/79 96 04/18/20 20:17 96 04/18/20 20:08 95 04/18/20 18:28 97 04/18/20 18:23 92 04/18/20 18:09 20 04/18/20 18:05 98.3 F 92 20 171/81 99 Intake and Output 04/18/20 04/19/20 04/19/20 22:59 06:59 14:59 Intake Total 840 Balance 840 Intake: Intake, IV Titration 750 Amount Sodium Chloride 0.9% 1, 750 000 ml @ 75 mls/hr IV . [id number] STA Rx#:[id number] Oral 90 Other: Voiding Method Toilet Toilet Toilet # Voids 1 1 Weight 72.121 kg GENERAL EXAM: Alert, very pleasant, 65-year-old white female, on 2 L of oxygen with pulse ox of 98% comfortable in no apparent distress. HEAD: Normocephalic/atraumatic. EYES: Normal reaction of pupils, equal size. Conjunctiva pink, sclera white. NOSE: Clear with pink turbinates. THROAT: No erythema or exudates. NECK: No masses, no JVD, no thyroid enlargement, no adenopathy. CHEST: No chest wall deformity. Symmetrical expansion. LUNGS: Equal air entry with a few scattered wheezes, CVS: Regular rate and rhythm, normal S1 and S2, no gallops, no murmurs, no rubs ABDOMEN: Soft, nontender. No hepatosplenomegaly, normal bowel sounds, no guarding or rigidity. EXTREMITIES: No clubbing, no edema, no cyanosis, 2+ pulses and upper and lower extremities. MUSCULOSKELETAL: Muscle strength and tone normal. SPINE: No scoliosis or deformity SKIN: No rashes CENTRAL NERVOUS SYSTEM: Alert and oriented -3. No focal deficits, tone is normal in all 4 extremities. PSYCHIATRIC: Alert and oriented -3. Appropriate affect. Intact judgment and insight. Results - Laboratory Findings CBC and BMP: 04/19/20 07:42 04/19/20 07:42 Abnormal lab findings: Abnormal Labs 04/18/20 04/18/20 04/19/20 18:20 18:20 07:42 WBC 13.6 H RBC Hgb MCHC RDW 15.9 H Neutrophils # 10.3 H Lymphocytes # Sodium 135 L BUN 20 H 19 H Glucose 145 H Albumin 3.4 L 04/19/20 07:42 WBC RBC 3.52 L Hgb 10.7 L MCHC 30.9 L RDW 15.9 H Neutrophils # Lymphocytes # 0.4 L Sodium BUN Glucose Albumin - Diagnostic Findings Chest x-ray: report reviewed, image reviewed Additional studies: EKG reviewed Assessment and Plan Plan: Assessment: #1. Acute on chronic hypoxic respiratory failure related to acute exacerbation of COPD, chest x-ray showed no acute pulmonary process #2. Recent history of bilateral myringotomy with tube placement for chronic bilateral serous otitis media #3. Advanced COPD with chronic hypoxic respiratory failure usually wears 2 L of oxygen, baseline FEV1 of 27% of predicted, awaiting lung transplantation at [facility] #4. History of heavy tobacco use with nicotine addition, currently in remission #5. History of deep venous thromboses #6. Hypertension #7. History of rheumatoid arthritis #8. Prior history of pneumonia #9. History of appendiceal cancer, status post appendectomy #10. History of chronic back pain #11. Restless leg syndrome #12. History of right colectomy for small bowel obstruction with subsequent wound dehiscence and reclosure Plan: Continue current medical treatment, IV steroids, breathing treatments, vital signs are stable, patient is improving, breathing easier, chest x-ray has shown no acute pulmonary process. Continue eardrops. No fever or chills. COVID 19 pending. Anticipate further improvement, possible discharge in the next 24 hours I performed a history & physical examination of the patient and discussed their management with my nurse practitioner, Savanah Mart. I reviewed the nurse practitioner's note and agree with the documented findings and plan of care. Lung sounds are positive for diminished breath sounds. The findings and the impression was discussed with the patient. I attest to the documentation by the nurse practitioner. Time with Patient: Greater than 30
[2020-04-19 15:07] LABS: Appearance,Urine Clear (Clear); Color,Urine Yellow; Specific Gravity,Urine 1.015 (1.001-1.035)
[2020-04-19 15:08] LABS: Bilirubin,Urine Negative (Negative); Blood,Urine Negative (Negative); Glucose,Urine (UA) 3+ (Negative); Ketones,Urine Negative (Negative); Leukocyte Esterase,Urine Negative (Negative); Nitrite,Urine Negative (Negative); Protein,Urine Negative (Negative); Urobilinogen,Urine <2.0 mg/dL (<2.0)
[2020-04-19] MEDS: IBUPROFEN 800 MG TAB PO PRN ×2 (16:48→23:57)
[2020-04-19] MEDS: Yupelri 175mcg/3ml 175 MCG INHALATION SCH (19:48)
[2020-04-19] MEDS: MONTELUKAST 10 MG TAB PO SCH (20:52)
[2020-04-19] MEDS: Roflumilast [Daliresp] 500 MCG PO SCH (21:04)
[2020-04-20] MEDS: IPRATROPIUM-ALBUTEROL 3 ML NEB INHALATION PRN ×2 (01:03→04:30)
[2020-04-20] MEDS: methylPREDNISolone SOD SUCCI 125 MG/2 ML VIAL IV SCH ×4 (06:13→23:46)
[2020-04-20] MEDS: FORMOTEROL FUMARATE 20 MCG/2 ML NEBU INHALATION SCH ×2 (08:04→19:52)
[2020-04-20] MEDS: BUDESONIDE 0.5 MG/2 ML NEBU INHALATION SCH ×2 (08:04→19:52)
[2020-04-20] MEDS: IPRATROPIUM-ALBUTEROL 3 ML NEB INHALATION SCH ×4 (08:04→19:52)
[2020-04-20] MEDS: HEPARIN SODIUM,PORCINE 5,000 UNIT/ML 1 ML VIAL SQ SCH ×3 (08:18→23:47)
[2020-04-20] MEDS: OFLOXACIN 0.3% OPHTH DROPS 5 ML BOTTLE BOTH EYES SCH ×4 (08:18→23:46)
[2020-04-20] MEDS: FAMOTIDINE 20 MG TAB PO SCH (08:18)
[2020-04-20] MEDS: LORATADINE 10 MG TAB PO SCH (08:19)
[2020-04-20] MEDS: LISINOPRIL 20 MG TAB PO SCH (08:19)
[2020-04-20] MEDS: FUROSEMIDE 10 MG/ML 4 ML VIAL IV SCH ×2 (10:15→20:25)
[2020-04-20 10:36] LABS: Anisocytosis Slight; Basophils % (A) 0 %; Eosinophils % (A) 0 %; HCT 30.8 % (34.0-46.0); HGB 9.4 gm/dL (11.4-16.0); Hypochromasia Slight; Lymphocytes # (A) 0.4 k/uL (1.0-4.8); Lymphocytes % (A) 3 %; MCH 30.4 pg (25.0-35.0); MCHC 30.5 g/dL (31.0-37.0); MCV 99.8 fL (80.0-100.0); Macrocytosis Slight; Mean Platelet Volume 8.7; Monocytes # (A) 0.2 k/uL (0-1.0); Monocytes % (A) 2 %; Neutrophils # (A) 12.6 k/uL (1.3-7.7); Neutrophils % (A) 95 %; Platelet Count 205 k/uL (150-450); RBC 3.09 m/uL (3.80-5.40); RDW 16.2 % (11.5-15.5); WBC 13.2 k/uL (3.8-10.6)
[2020-04-20 10:53] LABS: ALT 15 U/L (4-34); AST 17 U/L (14-36); African American GFR (CKD) >90 (>60 ml/min/1.73 sqM); Albumin 3.3 g/dL (3.5-5.0); Alkaline Phosphatase 44 U/L (38-126); Anion Gap 5 mmol/L; Blood Urea Nitrogen 24 mg/dL (7-17); Calcium 8.4 mg/dL (8.4-10.2); Carbon Dioxide 28 mmol/L (22-30); Chloride 108 mmol/L (98-107); Glucose 144 mg/dL (74-99); Non-African American GFR(CKD) 90 (>60 ml/min/1.73 sqM); Potassium 4.6 mmol/L (3.5-5.1); Sodium 141 mmol/L (137-145); Total Bilirubin 0.1 mg/dL (0.2-1.3); Total Protein 5.9 g/dL (6.3-8.2)
--- NOTE | 2020-04-20 11:39 | P.PN ---
Subjective Progress Note Date: 04/20/20 Principal diagnosis: Shortness of breath 65-year-old white female patient with known history of severe oxygen-dependent COPD awaiting lung transplantation baseline FEV1 of 27% of predicted, recurrent hospitalizations for complications related to COPD, former smoker, rheumatoid a rthritis, hypertension, history of right colectomy for small bowel obstruction with subsequent wound dehiscence and reclosure, history of vulvar cancer with resection and hysterectomy. Patient had recent bilateral myringotomy with insertion of ventilation tubes. On 04/18/2020 patient presented to the emergency department with increasing shortness of breath, denied any fevers, minimal cough, no chest pain. Patient states she may have had some dust exposure which made her symptoms worse. She had to increase her oxygen flow, she normally wears 2 l per minute of home oxygen, she had to increase it to 3. Despite using her inhalers and breathing treatments and turning her oxygen her breathing did not improve and she called ambulance. Chest x-ray showed chronic changes without acute pulmonary process. Lab work showed a white blood cell count of 13.6, hemoglobin of 11.9, serum sodium was 35, the rest very much choice were within normal limits, B1 is 20 creatinine 0.6, LFTs are within no rmal limits. Afebrile, hemodynamically stable, she is on 2 L of oxygen with pulse ox of 98%. Patient was started on IV steroids, breathing treatments, he is receiving ofloxacin eardrops. Has some difficulty hearing, but no ear pain. No fever or chills. COVID 19 test was sent and is pending at this time. Patient is ready feeling better today. Breathing easier, she is back down to 2 L. Is awake and alert, no altered mentation, lung sounds reveal a few scattered wheezes, no significant cough or congestion. On 04/20/2020 patient seen in follow-up on the general medical floor, she appears to be more short of breath today, and she feels she is more short of breath compared to yesterday, lung sounds reveal diminished breath sounds with some scattered wheezes, and crackles. Produce of Lasix has been given, patient remains on IV steroids, bronchodilators and Pulmicort and Perforomist in addition to Yuipelri Objective - Vital Signs Vital signs: Vital Signs Temp 97.9 F 04/20/20 07:00 Pulse 92 04/20/20 08:31 Resp 18 04/20/20 07:40 BP 146/57 04/20/20 07:00 Pulse Ox 99 04/20/20 07:00 Intake & Output 04/19/20 04/20/20 04/20/20 18:59 06:59 18:59 Intake Total 840 Balance 840 Intake: Oral 840 Other: Voiding Method Toilet Toilet # Voids 3 1 - Exam GENERAL EXAM: Alert, very pleasant, 65-year-old white female, on 2 L of oxygen with pulse ox of 98% tachypnea and appears more short of breath on today's exam HEAD: Normocephalic/atraumatic. EYES: Normal reaction of pupils, equal size. Conjunctiva pink, sclera white. NOSE: Clear with pink turbinates. THROAT: No erythema or exudates. NECK: No masses, no JVD, no thyroid enlargement, no adenopathy. CHEST: No chest wall deformity. Symmetrical expansion. LUNGS: Equal air entry with a few scattered wheezes, scattered rhonchi and rales CVS: Regular rate and rhythm, normal S1 and S2, no gallops, no murmurs, no rubs ABDOMEN: Soft, nontender. No hepatosplenomegaly, normal bowel sounds, no guarding or rigidity. EXTREMITIES: No clubbing, no edema, no cyanosis, 2+ pulses and upper and lower extremities. MUSCULOSKELETAL: Muscle strength and tone normal. SPINE: No scoliosis or deformity SKIN: No rashes CENTRAL NERVOUS SYSTEM: Alert and oriented -3. No focal deficits, tone is normal in all 4 extremities. PSYCHIATRIC: Alert and oriented -3. Appropriate affect. Intact judgment and insight. - Labs CBC & Chem 7: 04/20/20 09:53 04/20/20 09:53 Labs: Abnormal Lab Results - Last 24 Hours (Table) 04/20/20 04/20/20 Range/Units 09:53 09:53 WBC 13.2 H (3.8-10.6) k/uL RBC 3.09 L (3.80-5.40) m/uL Hgb 9.4 L (11.4-16.0) gm/dL Hct 30.8 L (34.0-46.0) % MCHC 30.5 L (31.0-37.0) g/dL RDW 16.2 H (11.5-15.5) % Neutrophils # 12.6 H (1.3-7.7) k/uL Lymphocytes # 0.4 L (1.0-4.8) k/uL Chloride 108 H (98-107) mmol/L BUN 24 H (7-17) mg/dL Glucose 144 H (74-99) mg/dL Total Bilirubin 0.1 L (0.2-1.3) mg/dL Total Protein 5.9 L (6.3-8.2) g/dL Albumin 3.3 L (3.5-5.0) g/dL Assessment and Plan Plan: Assessment: #1. Acute on chronic hypoxic respiratory failure related to acute exacerbation of COPD, chest x-ray showed no acute pulmonary process #2. Recent history of bilateral myringotomy with tube placement for chronic bilateral serous otitis media #3. Advanced COPD with chronic hypoxic respiratory failure usually wears 2 L of oxygen, baseline FEV1 of 27% of predicted, awaiting lung transplantation at [facility] #4. History of heavy tobacco use with nicotine addition, currently in remission #5. History of deep venous thromboses #6. Hypertension #7. History of rheumatoid arthritis #8. Prior history of pneumonia #9. History of appendiceal cancer, status post appendectomy #10. History of chronic back pain #11. Restless leg syndrome #12. History of right colectomy for small bowel obstruction with subsequent wound dehiscence and reclosure Plan: Patient appears to be more short of breath on today's exam, asthma congested and we will start the patient on IV diuretics, continue with same dose IV steroids, nebulized bronchodilators. Not quite ready for discharge, we'll reevaluate in another 24 hours. I performed a history & physical examination of the patient and discussed their management with my nurse practitioner, Savanah Mart. I reviewed the nurse practitioner's note and agree with the documented findings and plan of care. Lung sounds are positive for diminished breath sounds. The findings and the impression was discussed with the patient. I attest to the documentation by the nurse practitioner. Time with Patient: Less than 30
[2020-04-20] MEDS ORDERED: MAGNESIUM OXIDE 400 MG TAB PO STA (16:49)
[2020-04-20] MEDS: Yupelri 175mcg/3ml 175 MCG INHALATION SCH (18:00)
--- NOTE | 2020-04-20 19:06 | P.PN ---
Subjective Progress Note Date: 04/20/20 (delayed chrting seen at 11am) Principal diagnosis: shortness of breath Patient is a 65-year-old female well-known to our service secondary to multiple admissions for her end-stage COPD currently awaiting lung transplant, chronic hypoxic respiratory failure, pneumonia, and rheumatoid arthritis who presented to the ER with progressive shortness of breath and coughing. In the ER she underwent an extensive evaluation. Chest x-ray showed chronic changes, EKG showed PVCs. Her blood work showed leukocytosis. Initial vital signs showed that she was hypertensive with a blood pressure of 171/81. She was admitted for acute exacerbation of COPD. She was placed on bronchodilators, IV steroids, and antibiotics. Pulmonary was consulted and she was continued on the same. She h ad a slow improvement but was not quite back to baseline on 04/20. She was also complaining of crackles secondary to her IV fluids. Patient seen and examined at bedside. She reports that her breathing had been somewhat better but now she feels like she got too much fluid. She denies any chest pain, nausea, or vomiting. She still has a cough. She is very concerned about her records going to [facility] and she is being evaluated for lung transplant. Objective - Vital Signs Vital signs: Vital Signs Temp 98.3 F 04/20/20 15:00 Pulse 96 04/20/20 16:38 Resp 16 04/20/20 16:00 BP 115/48 04/20/20 15:00 Pulse Ox 97 04/20/20 15:00 Intake & Output 04/19/20 04/20/20 04/20/20 18:59 06:59 18:59 Intake Total 840 Balance 840 Intake: Oral 840 Other: Voiding Method Toilet Toilet # Voids 3 1 1 - Exam General: Ill appearing, no distress, appears at stated age Derm: warm, dry Head: atraumatic, normocephalic, symmetric Eyes: EOMI, no lid lag, anicteric sclera Mouth: no lip lesion, mucus membranes moist Cardiovascular: S1S2 reg, no murmur, positive posterior tibial pulse bilateral, Lungs: Decreased breath sounds bilateral with crackles on the left,, no accessory muscle use Abdominal: soft, nontender to palpation, no guarding, no appreciable organomegaly Ext: no gross muscle atrophy, no edema, no contractures Neuro: CN II-XI grossly intact, no focal neuro deficits Psych: Alert, oriented, appropriate affect - Labs CBC & Chem 7: 04/20/20 09:53 04/20/20 09:53 Labs: Abnormal Lab Results - Last 24 Hours (Table) 04/20/20 04/20/20 Range/Units 09:53 09:53 WBC 13.2 H (3.8-10.6) k/uL RBC 3.09 L (3.80-5.40) m/uL Hgb 9.4 L (11.4-16.0) gm/dL Hct 30.8 L (34.0-46.0) % MCHC 30.5 L (31.0-37.0) g/dL RDW 16.2 H (11.5-15.5) % Neutrophils # 12.6 H (1.3-7.7) k/uL Lymphocytes # 0.4 L (1.0-4.8) k/uL Chloride 108 H (98-107) mmol/L BUN 24 H (7-17) mg/dL Glucose 144 H (74-99) mg/dL Total Bilirubin 0.1 L (0.2-1.3) mg/dL Total Protein 5.9 L (6.3-8.2) g/dL Albumin 3.3 L (3.5-5.0) g/dL Assessment and Plan Assessment: Exacerbation of end-stage COPD with acute on chronic hypoxic respiratory failure -Pulmonary recommendations appreciated -Continue with IV steroids, bronchodilators -Add antitussives -Likely home in a.m. -On Daliresp - Singulair - Calritin Hypertension -Follow blood pressures -Urgency resolved -Continue with lisinopril Anemia -Appears chronic in origin and near baseline -Follow CBC -Outpatient workup History of tobacco abuse Chronic: Rheumatoid arthritis Chronic back pain Restless leg syndrome DVT DVT prophylaxis: Heparin Discussed with: Nursing, patient Anticipated discharge: In a.m. Anticipated discharge place: Home A total of 35 minutes was spent on the care of this complex patient more than 50% of the time was spent in counseling and care coordination.
[2020-04-20] MEDS: Roflumilast [Daliresp] 500 MCG PO SCH (20:17)
[2020-04-20] MEDS: IBUPROFEN 800 MG TAB PO PRN (20:24)
[2020-04-20] MEDS: MONTELUKAST 10 MG TAB PO SCH (20:24)
[2020-04-20] MEDS: MELATONIN 3 MG TABLET PO SCH (20:24)
[2020-04-20] MEDS: BENZONATATE 100 MG CAP PO PRN (20:24)
[2020-04-21] MEDS: BENZONATATE 100 MG CAP PO PRN ×2 (04:44→08:43)
[2020-04-21] MEDS: methylPREDNISolone SOD SUCCI 125 MG/2 ML VIAL IV SCH ×3 (06:10→17:39)
[2020-04-21] MEDS: OFLOXACIN 0.3% OPHTH DROPS 5 ML BOTTLE BOTH EYES SCH ×3 (06:10→17:39)
[2020-04-21] MEDS: HEPARIN SODIUM,PORCINE 5,000 UNIT/ML 1 ML VIAL SQ SCH (08:37)
[2020-04-21] MEDS: FAMOTIDINE 20 MG TAB PO SCH (08:42)
[2020-04-21] MEDS: FUROSEMIDE 10 MG/ML 4 ML VIAL IV SCH (08:42)
[2020-04-21] MEDS: IBUPROFEN 800 MG TAB PO PRN ×2 (08:42→21:21)
[2020-04-21] MEDS: LISINOPRIL 20 MG TAB PO SCH (08:42)
[2020-04-21] MEDS: LORATADINE 10 MG TAB PO SCH (08:42)
[2020-04-21] MEDS: BUDESONIDE 0.5 MG/2 ML NEBU INHALATION SCH ×2 (09:11→20:20)
[2020-04-21] MEDS: IPRATROPIUM-ALBUTEROL 3 ML NEB INHALATION SCH ×4 (09:11→20:20)
[2020-04-21] MEDS: FORMOTEROL FUMARATE 20 MCG/2 ML NEBU INHALATION SCH ×2 (09:11→20:20)
--- NOTE | 2020-04-21 10:20 | P.PN ---
Subjective Progress Note Date: 04/21/20 Objective - Vital Signs Vital signs: Vital Signs Temp 97.9 F 04/21/20 07:00 Pulse 102 H 04/21/20 09:34 Resp 20 04/21/20 07:00 BP 146/74 04/21/20 07:00 Pulse Ox 96 04/21/20 07:00 Intake & Output 04/20/20 04/21/20 04/21/20 18:59 06:59 18:59 Intake Total 20 Balance 20 Intake: Oral 20 Other: Voiding Method Toilet # Voids 1 2 - Labs CBC & Chem 7: 04/20/20 09:53 04/20/20 09:53 Labs: Abnormal Lab Results - Last 24 Hours (Table) 04/20/20 04/20/20 Range/Units 09:53 09:53 WBC 13.2 H (3.8-10.6) k/uL RBC 3.09 L (3.80-5.40) m/uL Hgb 9.4 L (11.4-16.0) gm/dL Hct 30.8 L (34.0-46.0) % MCHC 30.5 L (31.0-37.0) g/dL RDW 16.2 H (11.5-15.5) % Neutrophils # 12.6 H (1.3-7.7) k/uL Lymphocytes # 0.4 L (1.0-4.8) k/uL Chloride 108 H (98-107) mmol/L BUN 24 H (7-17) mg/dL Glucose 144 H (74-99) mg/dL Total Bilirubin 0.1 L (0.2-1.3) mg/dL Total Protein 5.9 L (6.3-8.2) g/dL Albumin 3.3 L (3.5-5.0) g/dL
[2020-04-21] MEDS: BENZOCAINE/MENTHOL LOZENG 1 EACH LOZENGE MUCOUS MEM PRN (11:44)
--- NOTE | 2020-04-21 12:07 | P.PN ---
Subjective Progress Note Date: 04/21/20 Principal diagnosis: Shortness of breath 65-year-old white female patient with known history of severe oxygen-dependent COPD awaiting lung transplantation baseline FEV1 of 27% of predicted, recurrent hospitalizations for complications related to COPD, former smoker, rheumatoid a rthritis, hypertension, history of right colectomy for small bowel obstruction with subsequent wound dehiscence and reclosure, history of vulvar cancer with resection and hysterectomy. Patient had recent bilateral myringotomy with insertion of ventilation tubes. On 04/18/2020 patient presented to the emergency department with increasing shortness of breath, denied any fevers, minimal cough, no chest pain. Patient states she may have had some dust exposure which made her symptoms worse. She had to increase her oxygen flow, she normally wears 2 l per minute of home oxygen, she had to increase it to 3. Despite using her inhalers and breathing treatments and turning her oxygen her breathing did not improve and she called ambulance. Chest x-ray showed chronic changes without acute pulmonary process. Lab work showed a white blood cell count of 13.6, hemoglobin of 11.9, serum sodium was 35, the rest very much choice were within normal limits, B1 is 20 creatinine 0.6, LFTs are within no rmal limits. Afebrile, hemodynamically stable, she is on 2 L of oxygen with pulse ox of 98%. Patient was started on IV steroids, breathing treatments, he is receiving ofloxacin eardrops. Has some difficulty hearing, but no ear pain. No fever or chills. COVID 19 test was sent and is pending at this time. Patient is ready feeling better today. Breathing easier, she is back down to 2 L. Is awake and alert, no altered mentation, lung sounds reveal a few scattered wheezes, no significant cough or congestion. On 04/20/2020 patient seen in follow-up on the general medical floor, she appears to be more short of breath today, and she feels she is more short of breath compared to yesterday, lung sounds reveal diminished breath sounds with some scattered wheezes, and crackles. Produce of Lasix has been given, patient remains on IV steroids, bronchodilators and Pulmicort and Perforomist in addition to Yuipelri On 04/21/2020 patient seen in follow-up on general medical floor. Breathing has improved, no crackles on today's exam, some scattered wheezes, ration has diabetes, feeling better, she remains on 2 L of oxygen with a pulse ox of 96%, no fever or chills. Today's labs have been reviewed, white blood cell count is 13.2, hemoglobin is 9.4, B1 is 24, creatinine 0.70, chloride is 108, the rest of the left lesser within normal limits. Coronavirus PCR was negative. No fever or chills. Feeling better today, occasional cough, no significant congestion, continue medical treatment, anticipate further improvement and discharge in the morning. Objective - Vital Signs Vital signs: Vital Signs Temp 97.9 F 04/21/20 07:00 Pulse 102 H 04/21/20 09:34 Resp 20 04/21/20 07:00 BP 146/74 04/21/20 07:00 Pulse Ox 96 04/21/20 07:00 Intake & Output 04/20/20 04/21/20 04/21/20 18:59 06:59 18:59 Intake Total 20 Balance 20 Intake: Oral 20 Other: Voiding Method Toilet # Voids 1 2 - Exam GENERAL EXAM: Alert, very pleasant, 65-year-old white female, on 2 L of oxygen with pulse ox of 98% tachypnea and appears more short of breath on today's exam HEAD: Normocephalic/atraumatic. EYES: Normal reaction of pupils, equal size. Conjunctiva pink, sclera white. NOSE: Clear with pink turbinates. THROAT: No erythema or exudates. NECK: No masses, no JVD, no thyroid enlargement, no adenopathy. CHEST: No chest wall deformity. Symmetrical expansion. LUNGS: Equal air entry with a few scattered wheezes, no rhonchi or wheezing on today's exam CVS: Regular rate and rhythm, normal S1 and S2, no gallops, no murmurs, no rubs ABDOMEN: Soft, nontender. No hepatosplenomegaly, normal bowel sounds, no guarding or rigidity. EXTREMITIES: No clubbing, no edema, no cyanosis, 2+ pulses and upper and lower extremities. MUSCULOSKELETAL: Muscle strength and tone normal. SPINE: No scoliosis or deformity SKIN: No rashes CENTRAL NERVOUS SYSTEM: Alert and oriented -3. No focal deficits, tone is normal in all 4 extremities. PSYCHIATRIC: Alert and oriented -3. Appropriate affect. Intact judgment and insight. - Labs CBC & Chem 7: 04/20/20 09:53 04/20/20 09:53 Assessment and Plan Plan: Assessment: #1. Acute on chronic hypoxic respiratory failure related to acute exacerbation of COPD, chest x-ray showed no acute pulmonary process #2. Recent history of bilateral myringotomy with tube placement for chronic bilateral serous otitis media #3. Advanced COPD with chronic hypoxic respiratory failure usually wears 2 L of oxygen, baseline FEV1 of 27% of predicted, awaiting lung transplantation at [facility] #4. History of heavy tobacco use with nicotine addition, currently in remission #5. History of deep venous thromboses #6. Hypertension #7. History of rheumatoid arthritis #8. Prior history of pneumonia #9. History of appendiceal cancer, status post appendectomy #10. History of chronic back pain #11. Restless leg syndrome #12. History of right colectomy for small bowel obstruction with subsequent wound dehiscence and reclosure Plan: We'll stop the IV Lasix, patient has been diuresed, feeling better today, imp roving, we will switch patient to once daily dose of oral Lasix 20 mg daily, continue IV steroids, breathing treatments, anticipate discharge home in the morning. I performed a history & physical examination of the patient and discussed their management with my nurse practitioner, Savanah Mart. I reviewed the nurse practitioner's note and agree with the documented findings and plan of care. Lung sounds are positive for diminished breath sounds. The findings and the impression was discussed with the patient. I attest to the documentation by the nurse practitioner. Time with Patient: Less than 30
--- NOTE | 2020-04-21 13:46 | P.PN ---
Subjective Progress Note Date: 04/21/20 (delayed charting seen at 1000) Principal diagnosis: shortness of breath Patient is a 65-year-old female well-known to our service secondary to multiple admissions for her end-stage COPD currently awaiting lung transplant, chronic hypoxic respiratory failure, pneumonia, and rheumatoid arthritis who presented to the ER with progressive shortness of breath and coughing. In the ER she underwent an extensive evaluation. Chest x-ray showed chronic changes, EKG showed PVCs. Her blood work showed leukocytosis. Initial vital signs showed that she was hypertensive with a blood pressure of 171/81. She was admitted for acute exacerbation of COPD. She was placed on bronchodilators, IV steroids, and antibiotics. Pulmonary was consulted and she was continued on the same. She had a slow improvement but was not quite back to baseline on 04/20. She was also complaining of crackles secondary to her IV fluids. Started on IV lasix which was switched to PO on 04/21. Patient seen and examined at bedside. Reports that her breathing is slightly improved from yesterday but still not back to baseline. Denies any chest pain. Is having a cough and sore throat asking for lost inch. States that magnesium help with muscle cramping and she like to try this at home. She also states that she ran out of her melatonin at home. States that she has had some difficulty in sleeping. Does report some jitteriness and lower extremity edema secondary to steroid use. Objective - Vital Signs Vital signs: Vital Signs Temp 97.9 F 04/21/20 07:00 Pulse 100 04/21/20 13:14 Resp 20 04/21/20 07:00 BP 146/74 04/21/20 07:00 Pulse Ox 96 04/21/20 07:00 Intake & Output 04/20/20 04/21/20 04/21/20 18:59 06:59 18:59 Intake Total 20 Balance 20 Intake: Oral 20 Other: Voiding Method Toilet # Voids 1 2 - Exam General: Nontoxic, no distress, appears at stated age Derm: warm, dry Head: atraumatic, normocephalic, symmetric Eyes: EOMI, no lid lag, anicteric sclera Mouth: no lip lesion, mucus membranes moist Cardiovascular: S1S2 reg, no murmur, positive posterior tibial pulse bilateral, Lungs: Decreased breath sounds bilateral with crackles on the left,, no accessory muscle use Abdominal: soft, nontender to palpation, no guarding, no appreciable organomegaly Ext: no gross muscle atrophy, trace edema, no contractures Neuro: CN II-XI grossly intact, no focal neuro deficits Psych: Alert, oriented, appropriate affect - Labs CBC & Chem 7: 04/20/20 09:53 04/20/20 09:53 Assessment and Plan Assessment: Exacerbation of end-stage COPD with acute on chronic hypoxic respiratory failure -Pulmonary recommendations appreciated -Continue with IV steroids, bronchodilators -Cepacol -Likely home in a.m. -On Daliresp - Singulair - Calritin Hypertension -Follow blood pressures -Urgency resolved -Continue with lisinopril Anemia -Appears chronic in origin and near baseline -Check iron studies -Follow CBC -Outpatient workup Insomnia -Continue with Unisom as outpatient, melatonin was in the hospital Leg cramping -Continue with magnesium -May need evaluation for possible restless leg syndrome -Check ferritin History of tobacco abuse Chronic: Rheumatoid arthritis Chronic back pain Restless leg syndrome DVT DVT prophylaxis: Heparin Discussed with: Nursing, patient Anticipated discharge: In a.m. Anticipated discharge place: Home A total of 25 minutes was spent on the care of this complex patient more than 50% of the time was spent in counseling and care coordination.
[2020-04-21] MEDS: Yupelri 175mcg/3ml 175 MCG INHALATION SCH (17:38)
[2020-04-21] MEDS ORDERED: MAGNESIUM OXIDE 400 MG TAB PO SCH (21:00)
[2020-04-21] MEDS: Roflumilast [Daliresp] 500 MCG PO SCH (21:10)
[2020-04-21] MEDS: MONTELUKAST 10 MG TAB PO SCH (21:18)
[2020-04-21] MEDS: MELATONIN 3 MG TABLET PO SCH (21:20)
[2020-04-22] MEDS: OFLOXACIN 0.3% OPHTH DROPS 5 ML BOTTLE BOTH EYES SCH ×3 (00:29→12:32)
[2020-04-22] MEDS: methylPREDNISolone SOD SUCCI 125 MG/2 ML VIAL IV SCH ×3 (00:29→12:32)
[2020-04-22] MEDS: IPRATROPIUM-ALBUTEROL 3 ML NEB INHALATION PRN ×2 (00:36→04:25)
[2020-04-22] MEDS: LORATADINE 10 MG TAB PO SCH (08:23)
[2020-04-22] MEDS: FAMOTIDINE 20 MG TAB PO SCH (08:23)
[2020-04-22] MEDS: LISINOPRIL 20 MG TAB PO SCH (08:23)
[2020-04-22] MEDS: IBUPROFEN 800 MG TAB PO PRN (08:24)
[2020-04-22] MEDS: FORMOTEROL FUMARATE 20 MCG/2 ML NEBU INHALATION SCH (08:40)
[2020-04-22] MEDS: BUDESONIDE 0.5 MG/2 ML NEBU INHALATION SCH (08:40)
[2020-04-22] MEDS: IPRATROPIUM-ALBUTEROL 3 ML NEB INHALATION SCH ×2 (08:40→11:33)
[2020-04-22 08:41] VITALS: BP 150/98; RESP 16; TEMP 97.8
[2020-04-22] MEDS ORDERED: FUROSEMIDE 20 MG TAB PO SCH (09:00)
[2020-04-22 10:20] LABS: HCT 34.7 % (34.0-46.0); HGB 10.8 gm/dL (11.4-16.0); Hypochromasia Moderate; MCH 31.7 pg (25.0-35.0); MCHC 31.2 g/dL (31.0-37.0); MCV 101.7 fL (80.0-100.0); Macrocytosis Slight; Mean Platelet Volume 8.8; Platelet Count 278 k/uL (150-450); RBC 3.41 m/uL (3.80-5.40); WBC 13.2 k/uL (3.8-10.6)
[2020-04-22 10:43] LABS: Calcium 8.1 mg/dL (8.4-10.2); Potassium 3.9 mmol/L (3.5-5.1)
[2020-04-22 11:39] VITALS: PULSE 88
--- NOTE | 2020-04-22 12:02 | P.DS ---
Providers Date of admission: 04/18/20 19:20 Expected date of discharge: 04/22/20 Attending physician: Mayank Schaffer MD Consults: 04/18/20 19:19 Consult Physician Routine Consulting Provider: Jose Elias Goodman Consult Reason/Comments: dyspnea Do you want consulting provider notified?: Yes Primary care physician: Gavin [facility] Course: Discharge Diagnosis: Exacerbation of end-stage COPD with acute on chronic hypoxic respiratory failure Hypertension Anemia Insomnia Leg cramping Rheumatoid arthritis. Chronic back pain Restless leg syndrome Hospital Course: Patient is a 65-year-old female well-known to our service secondary to multiple admissions for her end-stage COPD currently awaiting lung transplant, chronic hypoxic respiratory failure, pneumonia, and rheumatoid arthritis who presented to the ER with progressive shortness of breath and coughing. In the ER she underwent an extensive evaluation. Chest x-ray showed chronic changes, EKG showed PVCs. Her blood work showed leukocytosis. Initial vital signs showed that she was hypertensive with a blood pressure of 171/81. She was admitted for acute exacerbation of COPD. She was placed on bronchodilators, IV steroids, and antibiotics. Pulmonary was consulted and she was continued on the same. She had a slow improvement but was not quite back to baseline on 04/20. She was also complaining of crackles secondary to her IV fluids. Started on IV lasix which was switched to PO on 04/21. She continued to do well and was subsequently discharged home. she will complete a steroid dixie and a course of oral antibiotics. Multiple of her chronic medications were refilled on discharge. Ferritin, TIBC and iron pending on discharge. Patient seen and examined at bedside. She states that her breathing is back to baseline. No chest pain. + Yellow sputum. No nausea. Vital signs reviewed and stable. General: non toxic, no distress, appears at stated age Derm: warm, dry Head: atraumatic, normocephalic, symmetric Eyes: EOMI, no lid lag, anicteric sclera Mouth: no lip lesion, mucus membranes moist Cardiovascular: S1S2 reg, no murmur, positive posterior tibial pulse bilateral, Lungs: Course bs bilateral, no rhonchi, no rales , no accessory muscle use Abdominal: soft, nontender to palpation, no guarding, no appreciable organomegaly Ext: no gross muscle atrophy, no edema, no contractures Neuro: CN II-XI grossly intact, no focal neuro deficits Psych: Alert, oriented, appropriate affect A total of 35 minutes of time were spent preparing this complex discharge summary . Patient Condition at Discharge: Stable Plan - Discharge Summary New Discharge Prescriptions: New Magnesium 400 mg PO HS #60 tablet Benzocaine/Menthol Lozeng [Cepacol lozenge] 1 each MUCOUS MEM Q6HR PRN #30 lozenge PRN Reason: Sore Throat Melatonin 6 mg PO HS #30 tablet predniSONE 0 mg PO DIRECTED #40 tab Doxycycline [Vibramycin] 100 mg PO BID 3 Days #6 capsule Continue Benazepril HCl 20 mg PO DAILY Formoterol Fumarate [Perforomist] 20 mcg INHALATION RT-BID Budesonide [Pulmicort] 0.5 mg INHALATION RT-BID Multivit-Min/FA/Lycopen/Lutein [Centrum Silver Tablet] 1 tab PO DAILY Ibuprofen [Motrin] 800 mg PO TID PRN PRN Reason: Pain Roflumilast [Daliresp] 500 mcg PO HS Yupelri 175mcg/3ml 175 mcg INHALATION DAILY@1800 rOPINIRole HCL [Requip] 0.5 mg PO HS PRN PRN Reason: RESTLESS LEGS Cholecalciferol [Vitamin D3 (25 Mcg = 1000 Iu)] 1,000 unit PO DAILY Cetirizine HCl [Zyrtec] 10 mg PO DAILY Ipratropium-Albuterol Nebulize [Duoneb 0.5 mg-3 mg/3 ml Soln] 3 ml INHALATION RT-QID PRN PRN Reason: Shortness Of Breath Doxylamine Succinate [Unisom] 25 mg PO HS PRN #30 tab PRN Reason: sleeping Montelukast [Singulair] 10 mg PO HS #30 tab Discharge Medication List Benazepril HCl 20 mg PO DAILY 01/24/16 [History] Budesonide [Pulmicort] 0.5 mg INHALATION RT-BID 04/02/18 [History] Formoterol Fumarate [Perforomist] 20 mcg INHALATION RT-BID 04/02/18 [History] Multivit-Min/FA/Lycopen/Lutein [Centrum Silver Tablet] 1 tab PO DAILY 04/19/18 [History] Ibuprofen [Motrin] 800 mg PO TID PRN 03/12/19 [History] Roflumilast [Daliresp] 500 mcg PO HS 10/09/19 [History] Yupelri 175mcg/3ml 175 mcg INHALATION DAILY@1800 10/09/19 [History] rOPINIRole HCL [Requip] 0.5 mg PO HS PRN 03/24/20 [History] Cetirizine HCl [Zyrtec] 10 mg PO DAILY 04/08/20 [History] Cholecalciferol [Vitamin D3 (25 Mcg = 1000 Iu)] 1,000 unit PO DAILY 04/08/20 [History] Ipratropium-Albuterol Nebulize [Duoneb 0.5 mg-3 mg/3 ml Soln] 3 ml INHALATION RT-QID PRN 04/18/20 [History] Doxylamine Succinate [Unisom] 25 mg PO HS PRN #30 tab 04/21/20 [Rx] Magnesium 400 mg PO HS #60 tablet 04/21/20 [Rx] Benzocaine/Menthol Lozeng [Cepacol lozenge] 1 each MUCOUS MEM Q6HR PRN #30 lozenge 04/22/20 [Rx] Doxycycline [Vibramycin] 100 mg PO BID 3 Days #6 capsule 04/22/20 [Rx] Melatonin 6 mg PO HS #30 tablet 04/22/20 [Rx] Montelukast [Singulair] 10 mg PO HS #30 tab 04/22/20 [Rx] predniSONE 0 mg PO DIRECTED #40 tab 04/22/20 [Rx] Follow up Appointment(s)/Referral(s): Gavin Riggs [Primary Care Provider] - 04/27/20 2:45 pm Jose Elias Goodman MD [STAFF PHYSICIAN] - 1 Week Activity/Diet/Wound Care/Special Instructions: [facility] Call for housekeeping assistance or [facility] 1-B [phone] Discharge Disposition: HOME SELF-CARE
[2020-04-22] MEDS: BENZOCAINE/MENTHOL LOZENG 1 EACH LOZENGE MUCOUS MEM PRN (12:31)
--- NOTE | 2020-04-22 14:32 | P.PN ---
Subjective Progress Note Date: 04/22/20 Principal diagnosis: Acute on chronic hypoxic respiratory failure secondary to COPD exacerbation 65-year-old white female patient with known history of severe oxygen-dependent COPD awaiting lung transplantation baseline FEV1 of 27% of predicted, recurrent hospitalizations for complications related to COPD, former smoker, rheumatoid arthritis, hypertension, history of right colectomy for small bowel obstruction with subsequent wound dehiscence and reclosure, history of vulvar cancer with resection and hysterectomy. Patient had recent bilateral myringotomy with insertion of ventilation tubes. On 04/18/2020 patient presented to the emergency department with increasing shortness of breath, denied any fevers, minimal cough, no chest pain. Patient states she may have had some dust exposure which made her symptoms worse. She had to increase her oxygen flow, she normally wears 2 l per minute of home oxygen, she had to increase it to 3. Despite using her inhalers and breathing treatments and turning her oxygen her breathing did not improve and she called ambulance. Chest x-ray showed chronic changes without acute pulmonary process. Lab work showed a white blood cell count of 13.6, hemoglobin of 11.9, serum sodium was 35, the rest very much choice were within normal limits, B1 is 20 creatinine 0.6, LFTs are within normal limits. Afebrile, hemodynamically stable, she is on 2 L of oxygen with pulse ox of 98%. Patient was started on IV steroids, breathing treatments, he is receiving ofloxacin eardrops. Has some difficulty hearing, but no ear pain. No fever or chills. COVID 19 test was sent and is pending at this time. Patient is ready feeling better today. Breathing easier, she is back down to 2 L. Is awake and alert, no altered mentation, lung sounds reveal a few scattered wheezes, no significant cough or congestion. On 04/20/2020 patient seen in follow-up on the general medical floor, she appears to be more short of breath today, and she feels she is more short of breath compared to yesterday, lung sounds reveal diminished breath sounds with some scattered wheezes, and crackles. Produce of Lasix has been given, patient remains on IV steroids, bronchodilators and Pulmicort and Perforomist in addition to Yuipelri On 04/21/2020 patient seen in follow-up on general medical floor. Breathing has improved, no crackles on today's exam, some scattered wheezes, ration has diabetes, feeling better, she remains on 2 L of oxygen with a pulse ox of 96%, no fever or chills. Today's labs have been reviewed, white blood cell count is 13.2, hemoglobin is 9.4, B1 is 24, creatinine 0.70, chloride is 108, the rest of the left lesser within normal limits. Coronavirus PCR was negative. No fever or chills. Feeling better today, occasional cough, no significant congestion, continue medical treatment, anticipate further improvement and discharge in the morning. The patient is seen today 04/22/2020 in follow-up on the regular medical floor. She is currently sitting up in a chair at the bedside. Awake and alert in no acute distress. Less bronchospastic and wheezing. Nearly back to her baseline. Maintaining good O2 saturations in the 90s on room air. She's been afebrile. White count 13.2. Hemoglobin 10.8. Sodium 141. Potassium 3.9. Creatinine 0.82. Continued on DuoNeb inhalations, Pulmicort and Perforomist inhalations, IV Solu-Medrol, Singulair and Yupelri. Objective - Vital Signs Vital signs: Vital Signs Temp 97.8 F 04/22/20 07:00 Pulse 88 04/22/20 11:39 Resp 16 04/22/20 07:00 BP 150/98 04/22/20 07:00 Pulse Ox 96 04/22/20 07:00 Intake & Output 04/21/20 04/22/20 04/22/20 18:59 06:59 18:59 Other: Voiding Method Toilet Toilet # Voids 3 2 4 - Exam GENERAL EXAM: Alert, active, pleasant 65-year-old female patient on 3 L nasal cannula, comfortable in no apparent distress. HEAD: Normocephalic. EYES: Normal reaction of pupils, equal size. NOSE: Clear with pink turbinates. THROAT: No erythema or exudates. NECK: No masses, no JVD. CHEST: No chest wall deformity. LUNGS: Equal air entry with faint end expiratory wheeze, diminished. CVS: S1 and S2 normal with no audible murmur, regular rhythm. ABDOMEN: No hepatosplenomegaly, normal bowel sounds, no guarding or rigidity. SPINE: No scoliosis or deformity SKIN: No rashes CENTRAL NERVOUS SYSTEM: No focal deficits, tone is normal in all 4 extremities. EXTREMITIES: There is no peripheral edema. No clubbing, no cyanosis. Peripheral pulses are intact. - Labs CBC & Chem 7: 04/22/20 09:18 04/22/20 09:18 Labs: Abnormal Lab Results - Last 24 Hours (Table) 04/22/20 04/22/20 Range/Units 09:18 09:18 WBC 13.2 H (3.8-10.6) k/uL RBC 3.41 L (3.80-5.40) m/uL Hgb 10.8 L (11.4-16.0) gm/dL MCV 101.7 H (80.0-100.0) fL RDW 16.0 H (11.5-15.5) % Carbon Dioxide 33 H (22-30) mmol/L BUN 40 H (7-17) mg/dL Glucose 216 H (74-99) mg/dL Calcium 8.1 L (8.4-10.2) mg/dL Assessment and Plan Assessment: #1. Acute on chronic hypoxic respiratory failure related to acute exacerbation of COPD, chest x-ray showed no acute pulmonary process #2. Recent history of bilateral myringotomy with tube placement for chronic bilateral serous otitis media #3. Advanced COPD with chronic hypoxic respiratory failure usually wears 2 L of oxygen, baseline FEV1 of 27% of predicted, awaiting lung transplantation at [facility] #4. History of heavy tobacco use with nicotine addition, currently in remission #5. History of deep venous thromboses #6. Hypertension #7. History of rheumatoid arthritis #8. Prior history of pneumonia #9. History of appendiceal cancer, status post appendectomy #10. History of chronic back pain #11. Restless leg syndrome #12. History of right colectomy for small bowel obstruction with subsequent wound dehiscence and reclosure Plan: The patient was seen and evaluated by Dr. Goodman She is cleared for discharge from the pulmonary standpoint Complete a prednisone taper Continue her home pulmonary medications Follow-up in the office in 1-2 weeks' time Encouraged to call sooner with any recurrence of symptoms or other questions or concerns I, the cosigning physician, performed a history & physical examination of the patient. Lungs sounds with faint and extremities, diminished. Maintaining good O2 saturations in the 90s on 3 L/m per nasal cannula. I discussed the assessment and plan of care with my nurse practitioner, Symone Ohara. I attest to the above note as dictated by her.
[2020-04-22 18:58] LABS: % Iron Saturation 6.49 (12.00-45.00); Ferritin 18.9 ng/mL (10.0-291.0)
== END 2020-04-22 13:56 | disposition home or self-care (01) | DRG 190 ==
LOC: EC 18:00 → 4SSUR 19:20
PROVIDERS: ADMIT Internal Medicine; ATTEND Internal Medicine
DX: J44.1 Chronic obstructive pulmonary disease with (acute) exacerbation (principal); J96.21 Acute and chronic respiratory failure with hypoxia; Z76.82 Awaiting organ transplant status; M06.9 Rheumatoid arthritis, unspecified; Z20.828 Contact with and (suspected) exposure to other viral communicable diseases; I10 Essential (primary) hypertension; G25.81 Restless legs syndrome; I49.3 Ventricular premature depolarization; G47.00 Insomnia, unspecified; H65.23 Chronic serous otitis media, bilateral; G89.29 Other chronic pain; M54.9 Dorsalgia, unspecified; D64.9 Anemia, unspecified; M85.80 Other specified disorders of bone density and structure, unspecified site; F90.9 Attention-deficit hyperactivity disorder, unspecified type; R45.0 Nervousness; T38.0X5A Adverse effect of glucocorticoids and synthetic analogues, initial encounter; H91.90 Unspecified hearing loss, unspecified ear; Z79.51 Long term (current) use of inhaled steroids; Z79.899 Other long term (current) drug therapy; Z86.718 Personal history of other venous thrombosis and embolism; Z87.01 Personal history of pneumonia (recurrent); Z85.038 Personal history of other malignant neoplasm of large intestine; Z90.49 Acquired absence of other specified parts of digestive tract; Z90.710 Acquired absence of both cervix and uterus; Z85.44 Personal history of malignant neoplasm of other female genital organs; Z57.2 Occupational exposure to dust; Z96.651 Presence of right artificial knee joint; Z87.891 Personal history of nicotine dependence; Z86.69 Personal history of other diseases of the nervous system and sense organs; Z98.890 Other specified postprocedural states; Z88.5 Allergy status to narcotic agent; Z88.8 Allergy status to other drugs, medicaments and biological substances; Z91.048 Other nonmedicinal substance allergy status; Z99.81 Dependence on supplemental oxygen; Z80.49 Family history of malignant neoplasm of other genital organs; Z80.0 Family history of malignant neoplasm of digestive organs; Z82.5 Family history of asthma and other chronic lower respiratory diseases
CPT/HCPCS: 36415; 71046; 80048; 80053; 81003; 82728; 83540; 83550; 85025; 85027; 93005; 94640; 96361; 96374; 99285

== ENCOUNTER → 2020-05-13 | Outpatient (CLI) | payer MEDICARE, OTHER ==
--- NOTE | 2020-05-17 08:25 | MM ---
Reason for exam: screening (asymptomatic). Last mammogram was performed 1 year and 2 months ago. History: Patient is postmenopausal, history of endometrial cancer, and is nulliparous. Family history of breast cancer. Benign MG stereo VAD BX addl LT of the left breast, June 05, 2017. Benign MG stereo VAD BX RT of the right breast, June 05, 2017. Physical Findings: A clinical breast exam by your physician is recommended on an annual basis and results should be correlated with mammographic findings. MG 3D Screening Mammo W/Cad Bilateral CC and MLO view(s) were taken. Prior study comparison: March 18, 2019, bilateral MG 3d screening mammo w/cad. May 30, 2017, bilateral MG work up mamm w CAD BILAT. There are scattered fibroglandular densities. Stable calcifications. Previous mammotome biopsy in the right and left breast. No significant changes when compared with prior studies. ASSESSMENT: Benign, BI-RAD 2 RECOMMENDATION: Routine screening mammogram of both breasts in 1 year.
== END | disposition home or self-care (01) ==
LOC: RADMAMWWP 15:49
PROVIDERS: ATTEND Family Medicine
DX: Z12.31 Encounter for screening mammogram for malignant neoplasm of breast (principal)
CPT/HCPCS: 77063; 77067

== ENCOUNTER → 2020-07-27 | Outpatient (CLI) | payer MEDICARE, OTHER ==
[2020-07-27 12:59] VITALS: BP 99/62; PULSE 87; RESP 24; TEMP 98.4
--- NOTE | 2020-07-27 13:45 | P.HPOB ---
History of Present Illness H&P Date: 07/27/20 Chief Complaint: The patient is here for her routine gynecologic exam. This is a 65-year-old G0 with an LMP of 1983. She is status post TAD and unilateral oophorectomy for benign reasons. She has a history of vulvar cancer and is status post partial vulvectomy in 2000. She is without gynecologic complaints and is not sexually active. The patient is on the list for possible lung transplant through for to transplant [place]. Review of Systems She has been about 9 pounds over the last year. She denies cardiac and G.I. problems. Respiratory: She does get short of breath easily and is on the lung transplant list because of her severe COPD. She denies maltreatment or problems with falling. : she denies any significant problems with urinary leakage. Past Medical History Past Medical History: Cancer, COPD, Deep Vein Thrombosis (DVT), Hypertension, Pneumonia, Rheumatoid Arthritis (RA) Additional Past Medical History / Comment(s): hearing difficulty currently, colitis, osteopenia, hx cancer of appendix, uses oxygen 2L continuous, waiting for lung transplant due to COPD. chronic back pain, restless leg, recent admission for exacerbation of COPD. 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 Colonoscopy 2016. pain procedure at [facility] with Dr Ty. TAD with unilateral oophorectomy 1983. Partial vulvectomy in 2000. Past Anesthesia/Blood Transfusion Reactions: No Reported Reaction Additional Past Anesthesia/Blood Transfusion Reaction / Comment(s): states is not supposed to have general anesthesia R/T awaiting lung transplant Past Psychological History: ADD/ADHD, Anxiety Additional Psychological History / Comment(s): . Smoking Status: Former smoker Past Alcohol Use History: Rare (2 per year) Additional Past Alcohol Use History / Comment(s): Pt. states she quit smoking in 1999. smoked 1-1 1/2 PPD, started smoking age 13. Past Drug Use History: None Reported Additional Drug Use History / Comment(s): Quit using Marijuana 04/2016. Additional History: She is a and is not seeing anybody at this time and is not sexually active. She is retired. - Past Family History Father Family Medical History: Cancer, COPD Additional Family Medical History / Comment(s): COLON cancer Mother Family Medical History: Cancer Additional Family Medical History / Comment(s): ESOPHAGUS cancer Sister(s) Family Medical History: Cancer Additional Family Medical History / Comment(s): CERVICAL cancer Medications and Allergies Home Medications Medication Instructions Recorded Confirmed Type Benazepril HCl 20 mg PO DAILY 01/24/16 07/27/20 History Budesonide [Pulmicort] 0.5 mg INHALATION RT-BID 04/02/18 07/27/20 History Formoterol Fumarate [Perforomist] 20 mcg INHALATION RT-BID 04/02/18 07/27/20 History Multivit-Min/FA/Lycopen/Lutein 1 tab PO DAILY 04/19/18 07/27/20 History [Centrum Silver Tablet] Ibuprofen [Motrin] 800 mg PO TID PRN 03/12/19 07/27/20 History Roflumilast [Daliresp] 500 mcg PO HS 10/09/19 07/27/20 History Yupelri 175mcg/3ml 175 mcg INHALATION DAILY@1800 10/09/19 07/27/20 History rOPINIRole HCL [Requip] 0.5 mg PO HS PRN 03/24/20 07/27/20 History Cetirizine HCl [Zyrtec] 10 mg PO DAILY 04/08/20 07/27/20 History Cholecalciferol [Vitamin D3 (25 1,000 unit PO DAILY 04/08/20 07/27/20 History Mcg = 1000 Iu)] Ipratropium-Albuterol Nebulize 3 ml INHALATION RT-QID PRN 04/18/20 07/27/20 History [Duoneb 0.5 mg-3 mg/3 ml Soln] Doxylamine Succinate [Unisom] 25 mg PO HS PRN #30 tab 04/21/20 07/27/20 Rx Magnesium 400 mg PO HS #60 tablet 04/21/20 07/27/20 Rx Benzocaine/Menthol Lozeng [Cepacol 1 each MUCOUS MEM Q6HR PRN #30 04/22/20 07/27/20 Rx lozenge] lozenge Lidocaine 5% Patch [Lidoderm] 1 patch TOPICAL DAILY #30 patch 04/22/20 07/27/20 Rx Melatonin 6 mg PO HS #30 tablet 04/22/20 07/27/20 Rx Montelukast [Singulair] 10 mg PO HS #30 tab 04/22/20 07/27/20 Rx predniSONE 0 mg PO DIRECTED #40 tab 04/22/20 07/27/20 Rx Ferrous Sulfate [Iron] 325 mg PO DAILY 07/27/20 07/27/20 History Itraconazole [Sporanox] 100 mg PO DAILY 07/27/20 07/27/20 History guaiFENesin [Mucinex] 600 mg PO HS 07/27/20 07/27/20 History Allergies Allergy/AdvReac Type Severity Reaction Status Date / Time infliximab [From Remicade] Allergy Dyspnea/HIV Verified 07/27/20 12:51 ES propoxyphene [From Darvon] Allergy Rash/Hives Verified 07/27/20 12:51 adhesive tape AdvReac "is hard Verified 07/27/20 12:51 on skin" Exam Vital Signs Temp Pulse Resp BP Pulse Ox 07/27/20 12:52 98.4 F 87 24 99/62 99 Intake and Output 07/26/20 07/27/20 07/27/20 22:59 06:59 14:59 Other: Weight 75.296 kg Height 5 feet 1/2 inch, weight 166 pounds, BMI 31.9. This is a well-developed well-nourished white female who is alert and oriented times 3 in no acute distress. HEENT: Within normal limits. NECK: Supple without mass or thyromegaly. CHEST AND LUNGS: Moderate expiratory wheezing with decreased breath sounds consistent with her severe COPD. HEART: Regular rate and rhythm. BREASTS: Are without mass or discharge. AXILLARY EXAM: Negative for adenopathy. BACK: Negative for CVA tenderness. ABDOMEN: Soft, obese, nontender, without palpable masses. PELVIC EXAM: External genitalia is consistent with previous partial vulvectomy. The posterior vulva has been removed as well as the majority of the perineal body. The anus seems to go to the vaginal mucosa. This is consistent with her previous examination. There are no suspicious lesions. Vagina appears normal with mild to moderate atrophy. There is no evidence of prolapse. Bimanual examination is negative for mass or tenderness. RECTAL EXAM: Rectovaginal exam is negative for mass or tenderness and is negative for occult blood. EXTREMITIES: Nontender. IMPRESSION: 1. 65-year-old menopausal female status post TAD and unilateral oophorectomy for benign reasons. 2. History of partial vulvectomy for vulvar cancer in 2000. No evidence of recurrence. 3. History of osteoporosis. PLAN: 1. Pap smears have been discontinued. 2. Self breast awareness was discussed with the patient. 3. Screening mammogram was done on 05/13/2020 and was benign. 4. Osteoporosis management was discussed. I have stressed the importance of adequate calcium, vitamin D and regular exercise. Recommended amounts of calcium and vitamin D were also discussed. Her most recent bone density test was done by her toolroom helper on 05/05/2019 and showed osteoporosis in the left wrist. She states she was given some type of IV infusion for osteoporosis last year. I will try to determine what medication was used for this and we will consider continuing treatment for osteoporosis. We will see if this was Reclast or some other medication. 5. Plans to get a flu shot in the very near future. 6. She was advised to return in one year for her annual well woman exam.
== END | disposition home or self-care (01) ==
LOC: WWCWWP 12:03
PROVIDERS: ATTEND Obstetrics & Gynecology
DX: Z53.9 Procedure and treatment not carried out, unspecified reason (principal)

== ENCOUNTER 2020-09-15 11:49 | Observation (INO) | payer MEDICARE, OTHER ==
[2020-09-15] MEDS ORDERED: IPRATROPIUM 0.5 MG/2.5 ML NEBU INHALATION STA (12:37)
[2020-09-15] MEDS ORDERED: methylPREDNISolone SOD SUCCI 125 MG/2 ML VIAL IV STA (12:37)
[2020-09-15] MEDS ORDERED: ALBUTEROL NEBULIZED 2.5 MG/3 ML INHALATION STA (12:37)
[2020-09-15 13:09] LABS: Basophils % (A) 0 %; Eosinophils # (A) 0.3 k/uL (0-0.7); Eosinophils % (A) 3 %; HCT 37.2 % (34.0-46.0); HGB 12.1 gm/dL (11.4-16.0); Lymphocytes # (A) 1.8 k/uL (1.0-4.8); Lymphocytes % (A) 14 %; MCH 30.2 pg (25.0-35.0); MCHC 32.5 g/dL (31.0-37.0); Mean Platelet Volume 8.2; Monocytes # (A) 0.8 k/uL (0-1.0); Monocytes % (A) 6 %; Neutrophils # (A) 9.7 k/uL (1.3-7.7); Neutrophils % (A) 75 %; Platelet Count 426 k/uL (150-450); RDW 13.7 % (11.5-15.5); WBC 12.8 k/uL (3.8-10.6)
--- NOTE | 2020-09-15 13:13 | ED ---
General Adult HPI - General Chief complaint: Shortness of Breath Stated complaint: SOB Time Seen by Provider: 09/15/20 12:05 Source: patient, RN notes reviewed, old records reviewed Mode of arrival: ambulatory Limitations: no limitations - History of Present Illness Initial comments: this is a 65-year-old female who presents emergency Department complaining of having a past history of COPD per patient states the breathing is been getting considerably worse over the last 2 days per patient states normally when she gets this patient is being admitted to the hospital. Patient states she has been taking her breathing treatments at home but has not been helping. Patient denies any chest pain or palpitations. Patient denies any recent fever chills states she does have a dry cough. Patient denies any abdominal pain patient denies nausea vomiting diarrhea. Patient denies any swelling to the legs or calf tenderness. Patient has any recent injury or trauma. - Related Data Home Medications Medication Instructions Recorded Confirmed Benazepril HCl 20 mg PO DAILY 01/24/16 07/27/20 Budesonide [Pulmicort] 0.5 mg INHALATION RT-BID 04/02/18 07/27/20 Formoterol Fumarate [Perforomist] 20 mcg INHALATION RT-BID 04/02/18 07/27/20 Multivit-Min/FA/Lycopen/Lutein 1 tab PO DAILY 04/19/18 07/27/20 [Centrum Silver Tablet] Ibuprofen [Motrin] 800 mg PO TID PRN 03/12/19 07/27/20 Roflumilast [Daliresp] 500 mcg PO HS 10/09/19 07/27/20 Yupelri 175mcg/3ml 175 mcg INHALATION DAILY@1800 10/09/19 07/27/20 rOPINIRole HCL [Requip] 0.5 mg PO HS PRN 03/24/20 07/27/20 Cetirizine HCl [Zyrtec] 10 mg PO DAILY 04/08/20 07/27/20 Cholecalciferol [Vitamin D3 (25 1,000 unit PO DAILY 04/08/20 07/27/20 Mcg = 1000 Iu)] Ipratropium-Albuterol Nebulize 3 ml INHALATION RT-QID PRN 04/18/20 07/27/20 [Duoneb 0.5 mg-3 mg/3 ml Soln] Ferrous Sulfate [Iron] 325 mg PO DAILY 07/27/20 07/27/20 Itraconazole [Sporanox] 100 mg PO DAILY 07/27/20 07/27/20 guaiFENesin [Mucinex] 600 mg PO HS 07/27/20 07/27/20 Previous Rx's Medication Instructions Recorded Doxylamine Succinate [Unisom] 25 mg PO HS PRN #30 tab 04/21/20 Magnesium 400 mg PO HS #60 tablet 04/21/20 Benzocaine/Menthol Lozeng [Cepacol 1 each MUCOUS MEM Q6HR PRN #30 04/22/20 lozenge] lozenge Lidocaine 5% Patch [Lidoderm] 1 patch TOPICAL DAILY #30 patch 04/22/20 Melatonin 6 mg PO HS #30 tablet 04/22/20 Montelukast [Singulair] 10 mg PO HS #30 tab 04/22/20 predniSONE 0 mg PO DIRECTED #40 tab 04/22/20 Allergies Allergy/AdvReac Type Severity Reaction Status Date / Time infliximab [From Remicade] Allergy Dyspnea/HIV Verified 09/15/20 12:05 ES propoxyphene [From Darvon] Allergy Rash/Hives Verified 09/15/20 12:05 adhesive tape AdvReac "is hard Verified 09/15/20 12:05 on skin" Review of Systems ROS Statement: Those systems with pertinent positive or pertinent negative responses have been documented in the HPI. ROS Other: All systems not noted in ROS Statement are negative. Past Medical History Past Medical History: Cancer, COPD, Deep Vein Thrombosis (DVT), Hypertension, Pneumonia, Rheumatoid Arthritis (RA) Additional Past Medical History / Comment(s): hearing difficulty currently, colitis, osteopenia, hx cancer of appendix, uses oxygen 2L continuous, waiting for lung transplant due to COPD. chronic back pain, restless leg, recent admission for exacerbation of COPD. 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 Colonoscopy 2017. pain procedure at [facility] with Dr Ty. TAD with unilateral oophorectomy 1983. Partial vulvectomy in 2000. Past Anesthesia/Blood Transfusion Reactions: No Reported Reaction Additional Past Anesthesia/Blood Transfusion Reaction / Comment(s): states is not supposed to have general anesthesia R/T awaiting lung transplant Past Psychological History: ADD/ADHD, Anxiety Smoking Status: Former smoker Past Alcohol Use History: Rare Past Drug Use History: None Reported - Past Family History Father Family Medical History: Cancer, COPD Additional Family Medical History / Comment(s): COLON cancer Mother Family Medical History: Cancer Additional Family Medical History / Comment(s): ESOPHAGUS cancer Sister(s) Family Medical History: Cancer Additional Family Medical History / Comment(s): CERVICAL cancer General Exam - General Exam Comments Initial Comments: GENERAL: Patient is well-developed and well-nourished. Patient is nontoxic and well- hydrated and is in no acute distress. ENT: Neck is soft and supple. No significant lymphadenopathy is noted. Oropharynx is clear. Moist mucous membranes. Neck has full range of motion without eliciting any pain. EYES: The sclera were anicteric and conjunctiva were pink and moist. Extraocular movements were intact and pupils were equal round and reactive to light. Eyelids were unremarkable. PULMONARY: patient is moving very little air and is extremely tight. CARDIOVASCULAR: There is a regular rate and rhythm without any murmurs gallops or rubs. ABDOMEN: Soft and nontender with normal bowel sounds. SKIN: Skin is clear with no lesions or rashes and otherwise unremarkable. NEUROLOGIC: Patient is alert and oriented x3. Cranial nerves II through XII are grossly intact. Motor and sensory are also intact. Normal speech, volume and content. Symmetrical smile. MUSCULOSKELETAL: Normal extremities with adequate strength and full range of motion. No lower extremity swelling or edema. No calf tenderness. LYMPHATICS: No significant lymphadenopathy is noted PSYCHIATRIC: Normal psychiatric evaluation. Limitations: no limitations Course Vital Signs 09/15/20 09/15/20 09/15/20 12:05 12:16 13:50 Temperature 98.4 F Pulse Rate 109 H 101 H Respiratory 20 20 Rate Blood Pressure 92/50 O2 Sat by Pulse 99 Oximetry Medical Decision Making - Medical Decision Making EKG shows sinus tachycardia at 101 bpm OH interval 226 dresses 70 QT interval 3:30 QTC is 4:30. Patient's EKG shows no ST segment elevation or depression. chest x-ray shows no acute abnormality. Patient received 3 breathing treatments in the emergency department and was still moving air poorly. Patient received steroids in the emergency department as well as antibiotics. I spoke with sound physician's they agreed to admit the patient admitted the patient wrote admitting orders. - Lab Data Result diagrams: 09/15/20 12:53 09/15/20 12:53 Lab Results 09/15/20 09/15/20 09/15/20 Range/Units 12:53 12:53 12:53 WBC 12.8 H (3.8-10.6) k/uL RBC 4.00 (3.80-5.40) m/uL Hgb 12.1 (11.4-16.0) gm/dL Hct 37.2 (34.0-46.0) % MCV 93.0 (80.0-100.0) fL MCH 30.2 (25.0-35.0) pg MCHC 32.5 (31.0-37.0) g/dL RDW 13.7 (11.5-15.5) % Plt Count 426 (150-450) k/uL MPV 8.2 Neutrophils % 75 % Lymphocytes % 14 % Monocytes % 6 % Eosinophils % 3 % Basophils % 0 % Neutrophils # 9.7 H (1.3-7.7) k/uL Lymphocytes # 1.8 (1.0-4.8) k/uL Monocytes # 0.8 (0-1.0) k/uL Eosinophils # 0.3 (0-0.7) k/uL Basophils # 0.0 (0-0.2) k/uL PT 9.5 (9.0-12.0) sec INR 0.9 (<1.2) APTT 24.1 (22.0-30.0) sec Sodium 132 L (137-145) mmol/L Potassium 4.7 (3.5-5.1) mmol/L Chloride 97 L (98-107) mmol/L Carbon Dioxide 28 (22-30) mmol/L Anion Gap 7 mmol/L BUN 11 (7-17) mg/dL Creatinine 0.79 (0.52-1.04) mg/dL Est GFR (CKD-EPI)AfAm >90 (>60 ml/min/1.73 sqM) Est GFR (CKD-EPI)NonAf 78 (>60 ml/min/1.73 sqM) Glucose 88 (74-99) mg/dL Plasma Lactic Acid Osmani (0.7-2.0) mmol/L Calcium 9.5 (8.4-10.2) mg/dL Magnesium 1.8 (1.6-2.3) mg/dL Total Bilirubin 0.5 (0.2-1.3) mg/dL AST 20 (14-36) U/L ALT 11 (4-34) U/L Alkaline Phosphatase 64 (38-126) U/L Troponin I (0.000-0.034) ng/mL Total Protein 7.2 (6.3-8.2) g/dL Albumin 3.8 (3.5-5.0) g/dL 09/15/20 09/15/20 Range/Units 12:53 12:53 WBC (3.8-10.6) k/uL RBC (3.80-5.40) m/uL Hgb (11.4-16.0) gm/dL Hct (34.0-46.0) % MCV (80.0-100.0) fL MCH (25.0-35.0) pg MCHC (31.0-37.0) g/dL RDW (11.5-15.5) % Plt Count (150-450) k/uL MPV Neutrophils % % Lymphocytes % % Monocytes % % Eosinophils % % Basophils % % Neutrophils # (1.3-7.7) k/uL Lymphocytes # (1.0-4.8) k/uL Monocytes # (0-1.0) k/uL Eosinophils # (0-0.7) k/uL Basophils # (0-0.2) k/uL PT (9.0-12.0) sec INR (<1.2) APTT (22.0-30.0) sec Sodium (137-145) mmol/L Potassium (3.5-5.1) mmol/L Chloride (98-107) mmol/L Carbon Dioxide (22-30) mmol/L Anion Gap mmol/L BUN (7-17) mg/dL Creatinine (0.52-1.04) mg/dL Est GFR (CKD-EPI)AfAm (>60 ml/min/1.73 sqM) Est GFR (CKD-EPI)NonAf (>60 ml/min/1.73 sqM) Glucose (74-99) mg/dL Plasma Lactic Acid Osmani 1.7 (0.7-2.0) mmol/L Calcium (8.4-10.2) mg/dL Magnesium (1.6-2.3) mg/dL Total Bilirubin (0.2-1.3) mg/dL AST (14-36) U/L ALT (4-34) U/L Alkaline Phosphatase (38-126) U/L Troponin I <0.012 (0.000-0.034) ng/mL Total Protein (6.3-8.2) g/dL Albumin (3.5-5.0) g/dL Critical Care Time Critical Care Time: Yes Total Critical Care Time: 35 Disposition Clinical Impression: COPD with acute exacerbation Disposition: ADMITTED IP TO THIS HOSP Referrals: Gavin Riggs [Primary Care Provider] - 1-2 days Time of Disposition: 13:58
[2020-09-15 13:24] LABS: ALT 11 U/L (4-34); AST 20 U/L (14-36); African American GFR (CKD) >90 (>60 ml/min/1.73 sqM); Albumin 3.8 g/dL (3.5-5.0); Alkaline Phosphatase 64 U/L (38-126); Anion Gap 7 mmol/L; Blood Urea Nitrogen 11 mg/dL (7-17); Calcium 9.5 mg/dL (8.4-10.2); Carbon Dioxide 28 mmol/L (22-30); Chloride 97 mmol/L (98-107); Glucose 88 mg/dL (74-99); Magnesium 1.8 mg/dL (1.6-2.3); Non-African American GFR(CKD) 78 (>60 ml/min/1.73 sqM); Potassium 4.7 mmol/L (3.5-5.1); Sodium 132 mmol/L (137-145); Total Bilirubin 0.5 mg/dL (0.2-1.3); Total Protein 7.2 g/dL (6.3-8.2)
[2020-09-15 13:28] LABS: INR 0.9 (<1.2); Partial Thromboplastin Time 24.1 sec (22.0-30.0); Prothrombin Time 9.5 sec (9.0-12.0)
--- NOTE | 2020-09-15 13:28 | XR ---
EXAMINATION TYPE: XR chest 2V DATE OF EXAM: 09/15/2020 COMPARISON: 04/18/2020 INDICATION: Difficulty breathing cough short of breath TECHNIQUE: Frontal and lateral views of the chest are obtained. FINDINGS: The heart size is normal. The pulmonary vasculature is normal. The lungs are clear. IMPRESSION: 1. No acute pulmonary process.
[2020-09-15] MEDS ORDERED: cefTRIAXone IN SWFI 1,000 MG/10 ML SYRINGE IVP STA (13:35)
[2020-09-15] MEDS ORDERED: ONDANSETRON 4 MG/2 ML VIAL IVP STA (13:46)
[2020-09-15] MEDS ORDERED: SODIUM CHLORIDE 0.9% 1,000 ML IV ONE (13:50)
[2020-09-15] MEDS ORDERED: NALOXONE 0.4 MG/ML 1 ML VIAL IV PRN (13:58)
[2020-09-15] MEDS ORDERED: IPRATROPIUM-ALBUTEROL 3 ML NEB INHALATION PRN (14:00)
[2020-09-15] MEDS ORDERED: LIDOCAINE 5% PATCH TOPICAL PRN (16:49)
--- NOTE | 2020-09-15 16:55 | P.HPIM ---
History of Present Illness H&P Date: 09/15/20 Chief Complaint: Shortness of breath This is a 65-year-old female with past medical history noted below significant for severe COPD on home O2 that presented to the hospital with worsening shortness of breath. Patient said that her symptoms started couple of days ago and is being getting progressively worse. She is having some wheezing but feels that her lungs are very tight and having difficulty breathing. She said that she is having some cough that is generally productive of clear phlegm. She denies any fevers or chills. No flulike symptoms. No recent sick contact. Patient reported that she is on the lung transplant list at [facility]. She denies tobacco abuse. She has been using her nebulizer at home with minimal relief. Review of Systems Review of system: 14 points review of systems were obtained and were negative except to what were mentioned in the HPI. Past Medical History Past Medical History: Cancer, COPD, Deep Vein Thrombosis (DVT), Hypertension, Pneumonia, Rheumatoid Arthritis (RA) Additional Past Medical History / Comment(s): hearing difficulty currently, colitis, osteopenia, hx cancer of appendix, uses oxygen 2L continuous, waiting for lung transplant due to COPD. chronic back pain, restless leg, recent admission for exacerbation of COPD. 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 Colonoscopy 2017. pain procedure at [facility] with Dr Ty. [facility] with unilateral oophorectomy 1983. Partial vulvectomy in 2000. Past Anesthesia/Blood Transfusion Reactions: No Reported Reaction Additional Past Anesthesia/Blood Transfusion Reaction / Comment(s): states is not supposed to have general anesthesia R/T awaiting lung transplant Past Psychological History: ADD/ADHD, Anxiety Smoking Status: Former smoker Past Alcohol Use History: Rare Past Drug Use History: None Reported - Past Family History Father Family Medical History: Cancer, COPD Additional Family Medical History / Comment(s): COLON cancer Mother Family Medical History: Cancer Additional Family Medical History / Comment(s): ESOPHAGUS cancer Sister(s) Family Medical History: Cancer Additional Family Medical History / Comment(s): CERVICAL cancer Medications and Allergies Home Medications Medication Instructions Recorded Confirmed Type Benazepril HCl 20 mg PO DAILY 01/24/16 09/15/20 History Multivit-Min/FA/Lycopen/Lutein 1 tab PO DAILY 04/19/18 09/15/20 History [Centrum Silver Tablet] Roflumilast [Daliresp] 500 mcg PO HS 10/09/19 09/15/20 History Yupelri 175mcg/3ml 175 mcg INHALATION DAILY@1800 10/09/19 09/15/20 History rOPINIRole HCL [Requip] 0.5 mg PO HS 03/24/20 09/15/20 History Cetirizine HCl [Zyrtec] 10 mg PO DAILY 04/08/20 09/15/20 History Cholecalciferol [Vitamin D3 (25 1,000 unit PO DAILY 04/08/20 09/15/20 History Mcg = 1000 Iu)] Ipratropium-Albuterol Nebulize 3 ml INHALATION RT-QID PRN 04/18/20 09/15/20 History [Duoneb 0.5 mg-3 mg/3 ml Soln] Doxylamine Succinate [Unisom] 25 mg PO HS PRN #30 tab 04/21/20 09/15/20 Rx Montelukast [Singulair] 10 mg PO HS #30 tab 04/22/20 09/15/20 Rx Itraconazole [Sporanox] 100 mg PO DAILY 07/27/20 09/15/20 History guaiFENesin [Mucinex] 600 mg PO HS 07/27/20 09/15/20 History Lidocaine 5% Patch [Lidoderm] 1 patch TOPICAL DAILY PRN 09/15/20 09/15/20 History Magnesium Oxide [Mag-Ox] 200 mg PO HS 09/15/20 09/15/20 History Allergies Allergy/AdvReac Type Severity Reaction Status Date / Time infliximab [From Remicade] Allergy Dyspnea/HIV Verified 09/15/20 14:30 ES propoxyphene [From Darvon] Allergy Rash/Hives Verified 09/15/20 14:30 adhesive tape AdvReac "is hard Verified 09/15/20 14:30 on skin" Physical Exam Vitals: Vital Signs Temp Pulse Resp BP Pulse Ox 09/15/20 14:19 108 H 09/15/20 14:00 104 H 09/15/20 13:50 101 H 09/15/20 12:16 20 09/15/20 12:05 98.4 F 109 H 20 92/50 99 Intake and Output 09/15/20 09/15/20 09/15/20 06:59 14:59 22:59 Other: Weight 69.4 kg General: The patient is awake and alert, in no distress Eye: there is normal conjunctiva bilaterally. Neck: The neck is supple, there is no JVD. Cardiovascular: Normal S1-S2, no S3-S4, no murmurs. Respiratory: Lungs sounds are extremely diminished with mild end expiratory wheezing Gastrointestinal: Abdomen is soft, nontender Musculoskeletal: There is no pedal edema. Neurological:. Speech is normal. Skin: Skin is warm and dry Results CBC & Chem 7: 09/15/20 12:53 09/15/20 12:53 Labs: Abnormal Lab Results - Last 24 Hours (Table) 09/15/20 09/15/20 Range/Units 12:53 12:53 WBC 12.8 H (3.8-10.6) k/uL Neutrophils # 9.7 H (1.3-7.7) k/uL Sodium 132 L (137-145) mmol/L Chloride 97 L (98-107) mmol/L Assessment and Plan Assessment: 1. Acute COPD exacerbation: Continue duo nebs every 4 hours. Pulmonology consulted. I would add inhaled steroid. Given IV Solu-Medrol 125 mg in the ER. Currently on Solu-Medrol 60 mg IV every 6 hours. Chest x-ray with no acute findings 2. Acute on chronic hypoxic respiratory failure: On home O2 3. Underlying rheumatoid arthritis 4. Essential hypertension: Blood pressure on the lower side. Hold home dose of benazepril 5. DVT prophylaxis with subcu heparin Today, I reviewed her medication list and lab work results. Patient started on IV ceftriaxone 1 g daily in the ER, we will continue. Nebulizer as above. Awaiting pulmonology evaluation. Anticipate discharge tomorrow if improving.
[2020-09-15] MEDS: methylPREDNISolone SOD SUCCI 125 MG/2 ML VIAL IV SCH (18:42)
[2020-09-15] MEDS: IPRATROPIUM-ALBUTEROL 3 ML NEB INHALATION SCH ×2 (20:10→23:09)
[2020-09-15] MEDS: BUDESONIDE 0.5 MG/2 ML NEBU INHALATION SCH (20:10)
[2020-09-15] MEDS: MAGNESIUM OXIDE 400 MG TAB PO SCH (20:42)
[2020-09-15] MEDS: guaiFENesin 600 MG TABLET.ER PO SCH (20:43)
[2020-09-15] MEDS: NON FORMULARY DRUG (Roflumilast [Daliresp] 500 MCG Tablet) PO SCH (20:44)
[2020-09-15] MEDS: HEPARIN SODIUM,PORCINE 5,000 UNIT/ML 1 ML VIAL SQ SCH (20:44)
[2020-09-15] MEDS: MONTELUKAST 10 MG TAB PO SCH (20:44)
[2020-09-15] MEDS ORDERED: NON FORMULARY DRUG (Doxylamine Succinate [Unisom] 25 MG Tablet) PO PRN (21:00)
[2020-09-15] MEDS: CALCIUM CARBONATE 500 MG CHEWABLE PO PRN (21:20)
[2020-09-15] MEDS: MELATONIN 3 MG TABLET PO SCH (22:00)
[2020-09-16] MEDS: methylPREDNISolone SOD SUCCI 125 MG/2 ML VIAL IV SCH ×4 (00:54→18:10)
[2020-09-16] MEDS ORDERED: SODIUM CHLORIDE 0.65% NASAL SPRAY 44 ML BTL NASAL PRN (02:47)
[2020-09-16] MEDS: IPRATROPIUM-ALBUTEROL 3 ML NEB INHALATION SCH ×5 (02:56→20:00)
[2020-09-16] MEDS: PANTOPRAZOLE 40 MG TABLET PO SCH ×2 (06:13→08:52)
[2020-09-16 06:19] LABS: SARS-CoV-2 RNA Rapid Abbott Not Detected (Not Detectd)
[2020-09-16] MEDS: BUDESONIDE 0.5 MG/2 ML NEBU INHALATION SCH ×2 (07:39→20:00)
[2020-09-16] MEDS: ACETAMINOPHEN TAB 325 MG TAB PO PRN ×2 (08:51→18:25)
[2020-09-16] MEDS: LORATADINE 10 MG TAB PO SCH (08:52)
[2020-09-16] MEDS: HEPARIN SODIUM,PORCINE 5,000 UNIT/ML 1 ML VIAL SQ SCH ×2 (08:52→21:47)
[2020-09-16] MEDS ORDERED: NON FORMULARY DRUG (Benazepril Hcl [Benazepril Hcl] 20 MG Tablet) PO SCH (09:00)
--- NOTE | 2020-09-16 12:45 | P.PN ---
Subjective Progress Note Date: 09/16/20 Patient is feeling slightly better compared to yesterday. She denies any cough this morning. She feels that her lungs are still tight. Objective - Vital Signs Vital signs: Vital Signs Temp 97.9 F 09/16/20 05:00 Pulse 95 09/16/20 11:49 Resp 20 09/16/20 11:49 BP 96/66 09/16/20 05:00 Pulse Ox 97 09/16/20 06:17 Intake & Output 09/15/20 09/16/20 09/16/20 18:59 06:59 18:59 Intake Total 300 Balance 300 Weight 69.4 kg 69.4 kg Intake: Oral 300 Other: # Voids 2 # Bowel Movements 0 - Exam General: The patient is awake and alert, in no distress Eye: there is normal conjunctiva bilaterally. Neck: The neck is supple, there is no JVD. Cardiovascular: Normal S1-S2, no S3-S4, no murmurs. Respiratory: Lungs are diminished with end-expiratory wheezing Gastrointestinal: Abdomen is soft, nontender Musculoskeletal: There is no pedal edema. Neurological:. Speech is normal. Skin: Skin is warm and dry - Labs CBC & Chem 7: 09/15/20 12:53 09/15/20 12:53 Labs: Abnormal Lab Results - Last 24 Hours (Table) 09/15/20 09/15/20 Range/Units 12:53 12:53 WBC 12.8 H (3.8-10.6) k/uL Neutrophils # 9.7 H (1.3-7.7) k/uL Sodium 132 L (137-145) mmol/L Chloride 97 L (98-107) mmol/L Assessment and Plan Assessment: 1. Acute COPD exacerbation: Continue duo nebs every 4 hours. Pulmonology consulted. inhaled steroid twice daily. Given IV Solu-Medrol 125 mg in the ER. Currently on Solu-Medrol 60 mg IV every 6 hours. Chest x-ray with no acute findings. Covid19 and influenza screen negative 2. Acute on chronic hypoxic respiratory failure: On home O2 3. Underlying rheumatoid arthritis 4. Essential hypertension: Blood pressure on the lower side. Hold home dose of benazepril 5. DVT prophylaxis with subcu heparin Today, I reviewed her medication list and lab work results. Patient started on IV ceftriaxone 1 g daily in the ER, we will continue. Nebulizer as above. Awaiting pulmonology evaluation.
--- NOTE | 2020-09-16 14:02 | P.CNPUL ---
History of Present Illness Consult date: 09/15/20 Reason for consult: dyspnea History of present illness: 65-year-old female patient with advanced COPD, CK lung transplantation, comes into the hospital because of worsening shortness of breath a few days duration. No chest pain. No pleurisy. No hemoptysis. Denies having any fever or chills. No other new complaints otherwise for now. Her last hospitalization was in March 2020. She is known to have an FEV1 of 27% of predicted and she has chronic hypoxic respiratory failure admitted on oxygen at 2 L per minute nasal cannula. She has other comorbidities including RA, hypertension, and previous history of vulvar cancer. She has been maintained on a combination of Perforomist and Pulmicort nebulized treatments twice today and Yupelri nebulized treatments in addition to albuterol updrafts [id number]. The white cell count is at 12.8. Hemoglobin is at 12.1. Electrolytes were within normal limits. Lactic acid is down to 1.7. Chest x-ray shows no acute cardio pulmonary process. The lungs are essentially clear. Currently on 3 L of oxygen by nasal cannula. Review of Systems Constitutional: Denies chills, Denies fever Eyes: denies blurred vision, denies pain Ears, nose, mouth and throat: Denies headache, Denies sore throat Cardiovascular: Denies chest pain, Denies shortness of breath Respiratory: Reports dyspnea, Denies cough and the patient has significant limi tation of exercise capacity because of chronic shortness of breath. Gastrointestinal: Denies abdominal pain, Denies diarrhea, Denies nausea, Denies vomiting Genitourinary: Denies dysuria, Denies hematuria Musculoskeletal: Denies myalgias Integumentary: Denies pruritus, Denies rash Neurological: Denies numbness, Denies weakness Psychiatric: Denies anxiety, Denies depression Endocrine: Denies fatigue, Denies weight change Past Medical History Past Medical History: Cancer, COPD, Deep Vein Thrombosis (DVT), Hypertension, Pneumonia, Rheumatoid Arthritis (RA) Additional Past Medical History / Comment(s): hearing difficulty currently, colitis, osteopenia, hx cancer of appendix, uses oxygen 2L continuous, waiting for lung transplant due to COPD. chronic back pain, restless leg, recent admission for exacerbation of COPD. 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 Colonoscopy 2017. pain procedure at [facility] with Dr Ty. TAD with unilateral oophorectomy 1983. Partial vulvectomy in 2000. Past Anesthesia/Blood Transfusion Reactions: No Reported Reaction Additional Past Anesthesia/Blood Transfusion Reaction / Comment(s): states is not supposed to have general anesthesia R/T awaiting lung transplant Past Psychological History: ADD/ADHD, Anxiety Smoking Status: Former smoker Past Alcohol Use History: Rare Past Drug Use History: None Reported - Past Family History Father Family Medical History: Cancer, COPD Additional Family Medical History / Comment(s): COLON cancer Mother Family Medical History: Cancer Additional Family Medical History / Comment(s): ESOPHAGUS cancer Sister(s) Family Medical History: Cancer Additional Family Medical History / Comment(s): CERVICAL cancer Medications and Allergies Home Medications Medication Instructions Recorded Confirmed Type Benazepril HCl 20 mg PO DAILY 01/24/16 09/15/20 History Multivit-Min/FA/Lycopen/Lutein 1 tab PO DAILY 04/19/18 09/15/20 History [Centrum Silver Tablet] Roflumilast [Daliresp] 500 mcg PO HS 10/09/19 09/15/20 History Yupelri 175mcg/3ml 175 mcg INHALATION DAILY@1800 10/09/19 09/15/20 History rOPINIRole HCL [Requip] 0.5 mg PO HS 03/24/20 09/15/20 History Cetirizine HCl [Zyrtec] 10 mg PO DAILY 04/08/20 09/15/20 History Cholecalciferol [Vitamin D3 (25 1,000 unit PO DAILY 04/08/20 09/15/20 History Mcg = 1000 Iu)] Ipratropium-Albuterol Nebulize 3 ml INHALATION RT-QID PRN 04/18/20 09/15/20 History [Duoneb 0.5 mg-3 mg/3 ml Soln] Doxylamine Succinate [Unisom] 25 mg PO HS PRN #30 tab 04/21/20 09/15/20 Rx Montelukast [Singulair] 10 mg PO HS #30 tab 04/22/20 09/15/20 Rx Itraconazole [Sporanox] 100 mg PO DAILY 07/27/20 09/15/20 History guaiFENesin [Mucinex] 600 mg PO HS 07/27/20 09/15/20 History Lidocaine 5% Patch [Lidoderm] 1 patch TOPICAL DAILY PRN 09/15/20 09/15/20 History Magnesium Oxide [Mag-Ox] 200 mg PO HS 09/15/20 09/15/20 History Allergies Allergy/AdvReac Type Severity Reaction Status Date / Time infliximab [From Remicade] Allergy Dyspnea/HIV Verified 09/15/20 14:30 ES propoxyphene [From Darvon] Allergy Rash/Hives Verified 09/15/20 14:30 adhesive tape AdvReac "is hard Verified 09/15/20 14:30 on skin" Physical Exam Vitals: Vital Signs Temp Pulse Resp BP Pulse Ox 09/15/20 14:19 108 H 09/15/20 14:00 104 H 09/15/20 13:50 101 H 09/15/20 12:16 20 09/15/20 12:05 98.4 F 109 H 20 92/50 99 Intake and Output 09/15/20 09/15/20 09/15/20 06:59 14:59 22:59 Other: Weight 69.4 kg GENERAL EXAM: Alert, very pleasant, 65-year-old white female, on 3 L of oxygen with pulse ox of 98% comfortable in no apparent distress. HEAD: Normocephalic/atraumatic. EYES: Normal reaction of pupils, equal size. Conjunctiva pink, sclera white. NOSE: Clear with pink turbinates. THROAT: No erythema or exudates. NECK: No masses, no JVD, no thyroid enlargement, no adenopathy. CHEST: No chest wall deformity. Symmetrical expansion. LUNGS: Equal air entry with a few scattered wheezes, CVS: Regular rate and rhythm, normal S1 and S2, no gallops, no murmurs, no rubs ABDOMEN: Soft, nontender. No hepatosplenomegaly, normal bowel sounds, no guarding or rigidity. EXTREMITIES: No clubbing, no edema, no cyanosis, 2+ pulses and upper and lower extremities. MUSCULOSKELETAL: Muscle strength and tone normal. SPINE: No scoliosis or deformity SKIN: No rashes CENTRAL NERVOUS SYSTEM: Alert and oriented -3. No focal deficits, tone is normal in all 4 extremities. PSYCHIATRIC: Alert and oriented -3. Appropriate affect. Intact judgment and insight. Results - Laboratory Findings CBC and BMP: 09/15/20 12:53 09/15/20 12:53 PT/INR, D-dimer PT 9.5 sec (9.0-12.0) 09/15/20 12:53 INR 0.9 (<1.2) 09/15/20 12:53 Abnormal lab findings: Abnormal Labs 09/15/20 09/15/20 12:53 12:53 WBC 12.8 H Neutrophils # 9.7 H Sodium 132 L Chloride 97 L - Diagnostic Findings Chest x-ray: image reviewed Assessment and Plan Plan: 1 acute COPD exacerbation 2 advanced COPD with an FEV1 of 27% of predicted with significant limitation exercise capacity and chronic dyspnea and respiratory failure. The patient is seeking lung transportation she is listed that the transplant program at [facility] 3 chronic hypoxic respiratory failure maintained on oxygen at 2 L per minute nasal cannula 4 remote history of DVT 5 hypertension 6 history of rheumatoid arthritis 7 history of chronic back pain 8 restless leg syndrome 9 history of right colectomy with subsequent wound dehiscence and reclosure for a small bowel obstruction. 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
--- NOTE | 2020-09-16 14:18 | P.PN ---
Subjective Progress Note Date: 09/16/20 Principal diagnosis: Acute COPD exacerbation 65-year-old female patient with advanced COPD, CK lung transplantation, comes into the hospital because of worsening shortness of breath a few days duration. No chest pain. No pleurisy. No hemoptysis. Denies having any fever or chills. No other new complaints otherwise for now. Her last hospitalization was in March 2020. She is known to have an FEV1 of 27% of predicted and she has chronic hypoxic respiratory failure admitted on oxygen at 2 L per minute nasal cannula. She has other comorbidities including RA, hypertension, and previous history of vulvar cancer. She has been maintained on a combination of Perforomist and Pulmicort nebulized treatments twice today and Yupelri nebulized treatments in addition to albuterol updrafts [id number]. The white cell count is at 12.8. Hemoglobin is at 12.1. Electrolytes were within normal limits. Lactic acid is down to 1.7. Chest x-ray shows no acute cardio pulmonary process. The lungs are essentially clear. Currently on 3 L of oxygen by nasal cannula. On 09/16/2020 patient seen in follow-up on medical surgical floor. She is improving, breathing much easier, vital signs have been stable, she ruled out for COVID 19 and influenza. Chest x-ray did not show any acute process. Patient has been treated with IV steroids, empiric antibiotics, and nebulized bronchodilators. Responded well to treatments. No complaints of chest pain, no hemoptysis. Objective - Vital Signs Vital signs: Vital Signs Temp 98.4 F 09/16/20 12:56 Pulse 104 H 09/16/20 12:56 Resp 24 09/16/20 12:56 BP 127/68 09/16/20 12:56 Pulse Ox 92 L 09/16/20 12:56 Intake & Output 09/15/20 09/16/20 09/16/20 18:59 06:59 18:59 Intake Total 300 Balance 300 Weight 69.4 kg 69.4 kg Intake: Oral 300 Other: # Voids 2 # Bowel Movements 0 - Exam GENERAL EXAM: Alert, very pleasant, 65-year-old white female, on 3 L of oxygen a pulse ox of 92% comfortable in no apparent distress. HEAD: Normocephalic/atraumatic. EYES: Normal reaction of pupils, equal size. Conjunctiva pink, sclera white. NOSE: Clear with pink turbinates. THROAT: No erythema or exudates. NECK: No masses, no JVD, no thyroid enlargement, no adenopathy. CHEST: No chest wall deformity. Symmetrical expansion. LUNGS: Equal air entry with minimal wheezes, no crackles, rhonchi or dullness. CVS: Regular rate and rhythm, normal S1 and S2, no gallops, no murmurs, no rubs ABDOMEN: Soft, nontender. No hepatosplenomegaly, normal bowel sounds, no guarding or rigidity. EXTREMITIES: No clubbing, no edema, no cyanosis, 2+ pulses and upper and lower extremities. MUSCULOSKELETAL: Muscle strength and tone normal. SPINE: No scoliosis or deformity SKIN: No rashes CENTRAL NERVOUS SYSTEM: Alert and oriented -3. No focal deficits, tone is normal in all 4 extremities. PSYCHIATRIC: Alert and oriented -3. Appropriate affect. Intact judgment and insight. - Labs CBC & Chem 7: 09/15/20 12:53 09/15/20 12:53 Assessment and Plan Plan: Assessment: 1 acute COPD exacerbation 2 advanced COPD with an FEV1 of 27% of predicted with significant limitation exercise capacity and chronic dyspnea and respiratory failure. The patient is seeking lung transportation she is listed that the transplant program at [facility] 3 chronic hypoxic respiratory failure maintained on oxygen at 2 L per minute nasal cannula 4 remote history of DVT 5 hypertension 6 history of rheumatoid arthritis 7 history of chronic back pain 8 restless leg syndrome 9 history of right colectomy with subsequent wound dehiscence and reclosure for a small bowel obstruction. 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 I performed a history & physical examination of the patient and discussed their management with my nurse practitioner, Savanah Mart. I reviewed the nurse practitioner's note and agree with the documented findings and plan of care. Lung sounds are positive for diminished breath sounds. The findings and the impression was discussed with the patient. I attest to the documentation by the nurse practitioner. Time with Patient: Less than 30
[2020-09-16] MEDS: SALINE NASAL GEL 14.1 GM TUBE TOPICAL PRN (15:58)
[2020-09-16] MEDS: CALCIUM CARBONATE 500 MG CHEWABLE PO PRN (20:14)
[2020-09-16] MEDS: MONTELUKAST 10 MG TAB PO SCH (21:46)
[2020-09-16] MEDS: NON FORMULARY DRUG (Roflumilast [Daliresp] 500 MCG Tablet) PO SCH (21:46)
[2020-09-16] MEDS: MAGNESIUM OXIDE 400 MG TAB PO SCH (21:46)
[2020-09-16] MEDS: guaiFENesin 600 MG TABLET.ER PO SCH (21:47)
[2020-09-16 22:27] VITALS: RESP 16
[2020-09-17] MEDS: methylPREDNISolone SOD SUCCI 125 MG/2 ML VIAL IV SCH ×2 (00:45→05:18)
[2020-09-17] MEDS: IPRATROPIUM-ALBUTEROL 3 ML NEB INHALATION SCH ×4 (01:23→11:47)
[2020-09-17] MEDS: SALINE NASAL GEL 14.1 GM TUBE TOPICAL PRN (02:12)
[2020-09-17 05:28] VITALS: BP 137/72; TEMP 97.9
[2020-09-17] MEDS: BUDESONIDE 0.5 MG/2 ML NEBU INHALATION SCH (07:55)
[2020-09-17] MEDS: LORATADINE 10 MG TAB PO SCH (08:22)
[2020-09-17] MEDS: HEPARIN SODIUM,PORCINE 5,000 UNIT/ML 1 ML VIAL SQ SCH (08:22)
[2020-09-17] MEDS: PANTOPRAZOLE 40 MG TABLET PO SCH (08:22)
[2020-09-17] MEDS: ACETAMINOPHEN TAB 325 MG TAB PO PRN (09:37)
--- NOTE | 2020-09-17 10:01 | P.DS ---
Providers Date of admission: 09/15/20 16:30 Expected date of discharge: 09/17/20 Attending physician: Tosha Earl Consults: 09/15/20 13:59 Consult Physician Urgent Consulting Provider: Clarita Ibrahim Consult Reason/Comments: COPD exacerbation Do you want consulting provider notified?: Yes Primary care physician: [facility] Hospital Course: This is a 74-year-old female with past medical history noted below 6 year COPD on home O2 who presented to the emergency room for worsening shortness of breath. Patient was evaluated and placed on observation for further management of her medical problems noted below. 1. Acute COPD exacerbation: Continue duo nebs every 4 hours. Pulmonology consulted. inhaled steroid twice daily. Given IV Solu-Medrol 125 mg in the ER. Currently on Solu-Medrol 60 mg IV every 6 hours. We will finish taper course prednisone as an outpatient. Chest x-ray with no acute findings. Covid19 and influenza screen negative 2. Acute on chronic hypoxic respiratory failure: On home O2 3. Underlying rheumatoid arthritis 4. Essential hypertension: Blood pressure on the lower side. Decreased denies a previous dose of 10 mg daily Patient will be discharged home in a stable condition. For further details about this hospitalization please refer to the electronic chart. Time spent on discharge > 30 minutes including counseling and coordination of care Patient Condition at Discharge: Stable Plan - Discharge Summary Discharge Rx Participant: No New Discharge Prescriptions: New Mupirocin [Mupirocin 2%] 1 applic TOPICAL AC-BID 30 Days #1 gm Benazepril [Lotensin] 10 mg PO DAILY #30 tablet predniSONE 0 mg PO DIRECTED #30 tab Continue Multivit-Min/FA/Lycopen/Lutein [Centrum Silver Tablet] 1 tab PO DAILY Roflumilast [Daliresp] 500 mcg PO HS Yupelri 175mcg/3ml 175 mcg INHALATION DAILY@1800 rOPINIRole HCL [Requip] 0.5 mg PO HS Cholecalciferol [Vitamin D3 (25 Mcg = 1000 Iu)] 1,000 unit PO DAILY Cetirizine HCl [Zyrtec] 10 mg PO DAILY Ipratropium-Albuterol Nebulize [Duoneb 0.5 mg-3 mg/3 ml Soln] 3 ml INHALATION RT-QID PRN PRN Reason: Shortness Of Breath Doxylamine Succinate [Unisom] 25 mg PO HS PRN #30 tab PRN Reason: sleeping Montelukast [Singulair] 10 mg PO HS #30 tab guaiFENesin [Mucinex] 600 mg PO HS Magnesium Oxide [Mag-Ox] 200 mg PO HS Lidocaine 5% Patch [Lidoderm 5% Patch] 1 patch TOPICAL DAILY PRN PRN Reason: Pain Omeprazole Magnesium 20 mg PO DAILY Discontinued Benazepril HCl 20 mg PO DAILY Itraconazole [Sporanox] 100 mg PO DAILY Discharge Medication List Multivit-Min/FA/Lycopen/Lutein [Centrum Silver Tablet] 1 tab PO DAILY 04/19/18 [History] Roflumilast [Daliresp] 500 mcg PO HS 10/09/19 [History] Yupelri 175mcg/3ml 175 mcg INHALATION DAILY@1800 10/09/19 [History] rOPINIRole HCL [Requip] 0.5 mg PO HS 03/24/20 [History] Cetirizine HCl [Zyrtec] 10 mg PO DAILY 04/08/20 [History] Cholecalciferol [Vitamin D3 (25 Mcg = 1000 Iu)] 1,000 unit PO DAILY 04/08/20 [History] Ipratropium-Albuterol Nebulize [Duoneb 0.5 mg-3 mg/3 ml Soln] 3 ml INHALATION RT-QID PRN 04/18/20 [History] Doxylamine Succinate [Unisom] 25 mg PO HS PRN #30 tab 04/21/20 [Rx] Montelukast [Singulair] 10 mg PO HS #30 tab 04/22/20 [Rx] guaiFENesin [Mucinex] 600 mg PO HS 07/27/20 [History] Lidocaine 5% Patch [Lidoderm 5% Patch] 1 patch TOPICAL DAILY PRN 09/15/20 [History] Magnesium Oxide [Mag-Ox] 200 mg PO HS 09/15/20 [History] Mupirocin [Mupirocin 2%] 1 applic TOPICAL AC-BID 30 Days #1 gm 09/16/20 [Rx] Omeprazole Magnesium 20 mg PO DAILY 09/16/20 [History] Benazepril [Lotensin] 10 mg PO DAILY #30 tablet 09/17/20 [Rx] predniSONE 0 mg PO DIRECTED #30 tab 09/17/20 [Rx] Follow up Appointment(s)/Referral(s): Jose Elias Goodman MD [STAFF PHYSICIAN] - 1 Week Gavin Riggs [Primary Care Provider] - 1-2 days Discharge Disposition: HOME SELF-CARE
[2020-09-17 14:56] VITALS: PULSE 92
== END 2020-09-17 15:35 | disposition home or self-care (01) ==
LOC: EC 11:49 → 1SOBS 16:30 → 6NMEDSUR 09-16 00:26
PROVIDERS: ADMIT Internal Medicine; ATTEND Internal Medicine
DX: J44.1 Chronic obstructive pulmonary disease with (acute) exacerbation (principal); Z99.81 Dependence on supplemental oxygen; J96.21 Acute and chronic respiratory failure with hypoxia; M06.9 Rheumatoid arthritis, unspecified; I10 Essential (primary) hypertension; Z20.828 Contact with and (suspected) exposure to other viral communicable diseases; Z76.82 Awaiting organ transplant status; Z86.718 Personal history of other venous thrombosis and embolism; Z87.01 Personal history of pneumonia (recurrent); H91.90 Unspecified hearing loss, unspecified ear; K52.9 Noninfective gastroenteritis and colitis, unspecified; M85.80 Other specified disorders of bone density and structure, unspecified site; Z85.09 Personal history of malignant neoplasm of other digestive organs; G89.29 Other chronic pain; M54.9 Dorsalgia, unspecified; G25.81 Restless legs syndrome; Z85.44 Personal history of malignant neoplasm of other female genital organs; Z90.49 Acquired absence of other specified parts of digestive tract; Z90.710 Acquired absence of both cervix and uterus; Z96.651 Presence of right artificial knee joint; Z90.721 Acquired absence of ovaries, unilateral; F90.9 Attention-deficit hyperactivity disorder, unspecified type; F41.9 Anxiety disorder, unspecified; Z87.891 Personal history of nicotine dependence; Z80.0 Family history of malignant neoplasm of digestive organs; Z88.5 Allergy status to narcotic agent; Z79.52 Long term (current) use of systemic steroids; Z79.899 Other long term (current) drug therapy; Z88.8 Allergy status to other drugs, medicaments and biological substances; Z91.09 Other allergy status, other than to drugs and biological substances
CPT/HCPCS: 96376 ×3; 96365; 96366; 96372 ×3; 96361; 96375; 99291; 36415; 94640 ×6; 93005; 80053; 83605; 83735; 84484; 85025; 85610; 85730; 87502; 87635; 71046; G0378 ×3; J1644 ×3; J2930 ×3; J2405; J0696 ×3

== ENCOUNTER → 2020-10-11 | Outpatient (CLI) | payer MEDICARE, OTHER ==
[2020-10-11 13:11] VITALS: BP 122/65; RESP 20; TEMP 98.8
--- NOTE | 2020-10-11 13:49 | P.CONS ---
History of Present Illness - Reason for Consult Consult date: 10/11/20 - Chief Complaint mid and lower back pain - History of Present Illness This is a 65-year-old lady with severe COPD and chronic mid and lower back pain. The patient is on a lung transplantation list. She takes steroids orally. She has multiple compression fractures in the thoracic and lumbar vertebra. Her pain is mostly axial in the thoracic and lumbar area. The pain gets worse by standing and walking and improves by laying down in bed. The patient denies any weight loss or any nocturnal pain. She failed to respond to physical therapy and to multiple interventional pain procedures done by a different clinic clinic. The patient was referred to us by the pain physician for a trial of spinal cord stimulation. Past Medical History Past Medical History: Cancer, COPD, Deep Vein Thrombosis (DVT), Hypertension, Pneumonia, Rheumatoid Arthritis (RA) Additional Past Medical History / Comment(s): hearing difficulty currently, colitis, osteopenia, hx cancer of appendix, uses oxygen 2L continuous, waiting for lung transplant due to COPD. chronic back pain, restless leg, recent admission for exacerbation of COPD. 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 Colonoscopy 2017. pain procedure at [facility] with Dr Ty. TAD with unilateral oophorectomy 1983. Partial vulvectomy in 2000. Past Anesthesia/Blood Transfusion Reactions: No Reported Reaction Additional Past Anesthesia/Blood Transfusion Reaction / Comm: states is not supposed to have general anesthesia R/T awaiting lung transplant Smoking Status: Former smoker - Past Family History Father Family Medical History: Cancer, COPD Additional Family Medical History / Comment(s): COLON cancer Mother Family Medical History: Cancer Additional Family Medical History / Comment(s): ESOPHAGUS cancer Sister(s) Family Medical History: Cancer Additional Family Medical History / Comment(s): CERVICAL cancer Medications and Allergies Home Medications Medication Instructions Recorded Confirmed Type Multivit-Min/FA/Lycopen/Lutein 1 tab PO DAILY 04/19/18 09/15/20 History [Centrum Silver Tablet] Roflumilast [Daliresp] 500 mcg PO HS 10/09/19 09/15/20 History Yupelri 175mcg/3ml 175 mcg INHALATION DAILY@1800 10/09/19 09/15/20 History rOPINIRole HCL [Requip] 0.5 mg PO HS 03/24/20 09/15/20 History Cetirizine HCl [Zyrtec] 10 mg PO DAILY 04/08/20 09/15/20 History Cholecalciferol [Vitamin D3 (25 1,000 unit PO DAILY 04/08/20 09/15/20 History Mcg = 1000 Iu)] Ipratropium-Albuterol Nebulize 3 ml INHALATION RT-QID PRN 04/18/20 09/15/20 History [Duoneb 0.5 mg-3 mg/3 ml Soln] Doxylamine Succinate [Unisom] 25 mg PO HS PRN #30 tab 04/21/20 09/15/20 Rx Montelukast [Singulair] 10 mg PO HS #30 tab 04/22/20 09/15/20 Rx guaiFENesin [Mucinex] 600 mg PO HS 07/27/20 09/15/20 History Lidocaine 5% Patch [Lidoderm 5% 1 patch TOPICAL DAILY PRN 09/15/20 09/15/20 History Patch] Magnesium Oxide [Mag-Ox] 200 mg PO HS 09/15/20 09/15/20 History Mupirocin [Mupirocin 2%] 1 applic TOPICAL AC-BID 30 Days #1 09/16/20 Rx gm Omeprazole Magnesium 20 mg PO DAILY 09/16/20 09/16/20 History Benazepril [Lotensin] 10 mg PO DAILY #30 tablet 09/17/20 Rx predniSONE 0 mg PO DIRECTED #30 tab 09/17/20 Rx Allergies Allergy/AdvReac Type Severity Reaction Status Date / Time infliximab [From Remicade] Allergy Dyspnea/HIV Verified 09/15/20 14:30 ES propoxyphene [From Darvon] Allergy Rash/Hives Verified 09/15/20 14:30 adhesive tape AdvReac "is hard Verified 09/15/20 14:30 on skin" Physical Exam Vitals: Vital Signs Temp Resp BP Pulse Ox 10/11/20 13:04 98.8 F 20 122/65 98 Intake and Output 10/10/20 10/11/20 10/11/20 22:59 06:59 14:59 Other: Weight 72.575 kg - Constitutional General appearance: average body habitus - EENT Eyes: PERRLA - Respiratory The patient is on 3 L of O2 nasal cannula at rest - Neurologic Normal muscle strength in the lower extremities bilaterally Neurologic: CNII-XII intact - Musculoskeletal Percussion of the thoracic spinous processes elicited severe pain Positive tenderness for lumbar and thoracic paravertebral musculature tenderness. 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 The patient cannot take opioids to help control her pain because of her severe lung pathology to the extent that she is on transplantation list. The patient uses Tylenol for her pain which does not help at all as she states and she is desperate for any pain relief. I do not think that spinal cord stimulation would help her axial pain ,however because of lack of any other options we can try to place two leads using high frequency technology to see if this would help her pain. I will contact [facility] to try to arrange for this procedure. The patient has moderate degree of kyphosis which might complicate placing the stimulating leads technically . Of note the patient was cleared by psychology for this procedure. I thank you for the referral
== END | disposition home or self-care (01) ==
LOC: PNWHC3 12:48
PROVIDERS: ATTEND Anesthesiology
DX: M47.816 Spondylosis without myelopathy or radiculopathy, lumbar region (principal); M51.36 Other intervertebral disc degeneration, lumbar region; S22.009A Unspecified fracture of unspecified thoracic vertebra, initial encounter for closed fracture; S32.009A Unspecified fracture of unspecified lumbar vertebra, initial encounter for closed fracture; Z87.891 Personal history of nicotine dependence; Z79.891 Long term (current) use of opiate analgesic; Z79.899 Other long term (current) drug therapy; Z91.09 Other allergy status, other than to drugs and biological substances; Z88.8 Allergy status to other drugs, medicaments and biological substances; Z79.52 Long term (current) use of systemic steroids
CPT/HCPCS: 99211

== ENCOUNTER 2020-10-15 16:57 | Inpatient (IN) | payer MEDICARE, OTHER ==
[2020-10-15] MEDS ORDERED: SODIUM CHLORIDE 0.9% 500 ML 500 ML IV STA (17:27)
[2020-10-15] MEDS ORDERED: methylPREDNISolone SOD SUCCI 125 MG/2 ML VIAL IV STA (17:27)
[2020-10-15] MEDS ORDERED: MAGNESIUM SULFATE-D5W PMX 1 GM in DEXTROSE/WATER 1 100ML.BAG IVPB STA (17:27)
[2020-10-15] MEDS ORDERED: ALBUTEROL HFA INHALER INHALATION STA (17:27)
[2020-10-15 17:53] LABS: Basophils # (A) 0.1 k/uL (0-0.2); Basophils % (A) 1 %; Eosinophils # (A) 0.1 k/uL (0-0.7); Eosinophils % (A) 1 %; HCT 34.1 % (34.0-46.0); Hypochromasia Slight; Lymphocytes # (A) 0.5 k/uL (1.0-4.8); Lymphocytes % (A) 5 %; MCH 30.5 pg (25.0-35.0); MCHC 32.2 g/dL (31.0-37.0); MCV 94.9 fL (80.0-100.0); Mean Platelet Volume 8.1; Monocytes # (A) 0.3 k/uL (0-1.0); Monocytes % (A) 2 %; Neutrophils % (A) 92 %; Platelet Count 345 k/uL (150-450); RBC 3.59 m/uL (3.80-5.40); RDW 15.1 % (11.5-15.5)
[2020-10-15 18:08] LABS: Albumin 3.4 g/dL (3.5-5.0); Calcium 9.5 mg/dL (8.4-10.2); Total Bilirubin 0.4 mg/dL (0.2-1.3); Total Protein 6.1 g/dL (6.3-8.2)
[2020-10-15 18:13] LABS: D-Dimer 0.23 mg/L FEU (<0.60); INR 0.9 (<1.2); Prothrombin Time 9.3 sec (9.0-12.0)
[2020-10-15 18:24] LABS: Partial Thromboplastin Time 20.3 sec (22.0-30.0)
--- NOTE | 2020-10-15 19:02 | XR ---
EXAMINATION TYPE: XR chest 1V portable DATE OF EXAM: 10/15/2020 COMPARISON: 09/15/2020 HISTORY: Short of breath TECHNIQUE: Single view FINDINGS: There is small area of scarring or subsegmental atelectasis left lung base. There is no hea rt failure. There are no hilar masses. Thoracic aorta is atheromatous. There are chest leads. IMPRESSION: Minimal scarring or subsegmental atelectasis left lung base unchanged. No heart failure.
--- NOTE | 2020-10-15 19:24 | ED ---
SOB HPI - General Chief Complaint: Shortness of Breath Stated Complaint: COPD Time Seen by Provider: 10/15/20 17:11 Source: patient Mode of arrival: wheelchair Limitations: no limitations - History of Present Illness Initial Comments: Patient complains of shortness of breath. She has taken medication at home. It has not helped. She has no chest pain or pressure. She has no nausea or vomiting or diaphoresis. She denies sick contacts. She denies any recent travel. She has no lightheadedness or dizziness. Denies any belly or back pain. She has no pain or swelling in the arms or legs. - Related Data Home Medications Medication Instructions Recorded Confirmed Multivit-Min/FA/Lycopen/Lutein 1 tab PO DAILY 04/19/18 10/15/20 [Centrum Silver Tablet] Roflumilast [Daliresp] 500 mcg PO HS 10/09/19 10/15/20 Yupelri 175mcg/3ml 175 mcg INHALATION DAILY@1800 10/09/19 10/15/20 rOPINIRole HCL [Requip] 0.5 mg PO HS 03/24/20 10/15/20 Cholecalciferol [Vitamin D3 (25 2,000 units PO DAILY 04/08/20 10/15/20 Mcg = 1000 Iu)] Ipratropium-Albuterol Nebulize 3 ml INHALATION RT-QID PRN 04/18/20 10/15/20 [Duoneb 0.5 mg-3 mg/3 ml Soln] Magnesium Oxide [Mag-Ox] 200 mg PO HS 09/15/20 10/15/20 Omeprazole Magnesium 20 mg PO DAILY 09/16/20 10/15/20 Budesonide [Pulmicort] 0.5 mg INHALATION RT-BID 10/11/20 10/15/20 Ferrous Sulfate [Iron] 325 mg PO MOWEFR 10/11/20 10/15/20 Formoterol Fumarate [Perforomist] 20 mg INHALATION RT-BID 10/11/20 10/15/20 Itraconazole [Sporanox] 100 mg PO BID 10/11/20 10/15/20 Loratadine [Claritin] 10 mg PO DAILY 10/11/20 10/15/20 Melatonin 3 mg PO HS 10/11/20 10/15/20 diphenhydrAMINE HCL 12.5 mg PO HS 10/11/20 10/15/20 traZODone HCL 75 mg PO HS 10/11/20 10/15/20 Acetaminophen Tab [Tylenol Tab] 1,000 mg PO Q6HR PRN 10/15/20 10/15/20 Benazepril HCl 20 mg PO DAILY 10/15/20 10/15/20 Nasal [place] 1 spray EA NOSTRIL DAILY PRN 10/15/20 10/15/20 hydrOXYzine HCL [Atarax] 10 - 20 mg PO TID PRN 10/15/20 10/15/20 predniSONE [Deltasone] 80 mg PO DAILY 10/15/20 10/15/20 Previous Rx's Medication Instructions Recorded Montelukast [Singulair] 10 mg PO HS #30 tab 04/22/20 Allergies Allergy/AdvReac Type Severity Reaction Status Date / Time infliximab [From Remicade] Allergy Dyspnea/HIV Verified 10/15/20 18:17 ES propoxyphene [From Darvon] Allergy Rash/Hives Verified 10/15/20 18:17 adhesive tape AdvReac "is hard Verified 10/15/20 18:17 on skin" Review of Systems ROS Statement: Those systems with pertinent positive or pertinent negative responses have been documented in the HPI. ROS Other: All systems not noted in ROS Statement are negative. Past Medical History Past Medical History: Cancer, COPD, Deep Vein Thrombosis (DVT), Hypertension, Pneumonia, Rheumatoid Arthritis (RA) Additional Past Medical History / Comment(s): hearing difficulty currently, colitis, osteopenia, hx cancer of appendix, uses oxygen 2L continuous, waiting for lung transplant due to COPD. chronic back pain, restless leg, recent admission for exacerbation of COPD. 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 Colonoscopy 2017. pain procedure at [facility] with Dr Ty. TAD with unilateral oophorectomy 1983. Partial vulvectomy in 2000. Past Anesthesia/Blood Transfusion Reactions: No Reported Reaction Additional Past Anesthesia/Blood Transfusion Reaction / Comment(s): states is not supposed to have general anesthesia R/T awaiting lung transplant Past Psychological History: ADD/ADHD, Anxiety Smoking Status: Former smoker Past Alcohol Use History: None Reported Past Drug Use History: None Reported - Past Family History Father Family Medical History: Cancer, COPD Additional Family Medical History / Comment(s): COLON cancer Mother Family Medical History: Cancer Additional Family Medical History / Comment(s): ESOPHAGUS cancer Sister(s) Family Medical History: Cancer Additional Family Medical History / Comment(s): CERVICAL cancer General Exam Limitations: no limitations General appearance: alert, in no apparent distress Head exam: Present: atraumatic, normocephalic, normal inspection Eye exam: Present: normal appearance, PERRL, EOMI. Absent: scleral icterus, conjunctival injection, periorbital swelling ENT exam: Present: normal exam, mucous membranes moist Neck exam: Present: normal inspection. Absent: tenderness, meningismus, lymph adenopathy Respiratory exam: Present: respiratory distress, wheezes. Absent: rales, rhonchi, stridor Cardiovascular Exam: Present: regular rate, normal rhythm, normal heart sounds. Absent: systolic murmur, diastolic murmur, rubs, gallop, clicks GI/Abdominal exam: Present: soft, normal bowel sounds. Absent: distended, ten derness, guarding, rebound, rigid Extremities exam: Present: normal inspection, full ROM, normal capillary refill. Absent: tenderness, pedal edema, joint swelling, calf tenderness Back exam: Present: normal inspection Neurological exam: Present: alert, oriented X3, CN II-XII intact Psychiatric exam: Present: normal affect, normal mood Skin exam: Present: warm, dry, intact, normal color. Absent: rash Course Vital Signs 10/15/20 10/15/20 17:02 17:30 Temperature 99.0 F Pulse Rate 106 H 102 H Respiratory 22 22 Rate Blood Pressure 140/56 135/65 O2 Sat by Pulse 97 98 Oximetry Medical Decision Making - Medical Decision Making Patient presented with difficulty in breathing. She has wheezing. She is not feeling any better after treatment in the emerge department. She should not go home. She will be admitted to the hospital. - Lab Data Result diagrams: 10/15/20 17:43 10/15/20 17:43 Lab Results 10/15/20 10/15/20 10/15/20 Range/Units 17:43 17:43 17:43 WBC 12.0 H (3.8-10.6) k/uL RBC 3.59 L (3.80-5.40) m/uL Hgb 11.0 L (11.4-16.0) gm/dL Hct 34.1 (34.0-46.0) % MCV 94.9 (80.0-100.0) fL MCH 30.5 (25.0-35.0) pg MCHC 32.2 (31.0-37.0) g/dL RDW 15.1 (11.5-15.5) % Plt Count 345 (150-450) k/uL MPV 8.1 Neutrophils % 92 % Lymphocytes % 5 % Monocytes % 2 % Eosinophils % 1 % Basophils % 1 % Neutrophils # 11.0 H (1.3-7.7) k/uL Lymphocytes # 0.5 L (1.0-4.8) k/uL Monocytes # 0.3 (0-1.0) k/uL Eosinophils # 0.1 (0-0.7) k/uL Basophils # 0.1 (0-0.2) k/uL Hypochromasia Slight PT 9.3 (9.0-12.0) sec INR 0.9 (<1.2) APTT 20.3 L (22.0-30.0) sec D-Dimer 0.23 (<0.60) mg/L FEU Sodium 142 (137-145) mmol/L Potassium 5.0 (3.5-5.1) mmol/L Chloride 104 (98-107) mmol/L Carbon Dioxide 37 H (22-30) mmol/L Anion Gap 1 mmol/L BUN 34 H (7-17) mg/dL Creatinine 0.80 (0.52-1.04) mg/dL Est GFR (CKD-EPI)AfAm 88 (>60 ml/min/1.73 sqM) Est GFR (CKD-EPI)NonAf 77 (>60 ml/min/1.73 sqM) Glucose 118 H (74-99) mg/dL Plasma Lactic Acid Osmani (0.7-2.0) mmol/L Calcium 9.5 (8.4-10.2) mg/dL Total Bilirubin 0.4 (0.2-1.3) mg/dL AST 20 (14-36) U/L ALT 15 (4-34) U/L Alkaline Phosphatase 47 (38-126) U/L Troponin I (0.000-0.034) ng/mL NT-Pro-B Natriuret Pep pg/mL Total Protein 6.1 L (6.3-8.2) g/dL Albumin 3.4 L (3.5-5.0) g/dL 10/15/20 10/15/20 10/15/20 Range/Units 17:43 17:43 17:43 WBC (3.8-10.6) k/uL RBC (3.80-5.40) m/uL Hgb (11.4-16.0) gm/dL Hct (34.0-46.0) % MCV (80.0-100.0) fL MCH (25.0-35.0) pg MCHC (31.0-37.0) g/dL RDW (11.5-15.5) % Plt Count (150-450) k/uL MPV Neutrophils % % Lymphocytes % % Monocytes % % Eosinophils % % Basophils % % Neutrophils # (1.3-7.7) k/uL Lymphocytes # (1.0-4.8) k/uL Monocytes # (0-1.0) k/uL Eosinophils # (0-0.7) k/uL Basophils # (0-0.2) k/uL Hypochromasia PT (9.0-12.0) sec INR (<1.2) APTT (22.0-30.0) sec D-Dimer (<0.60) mg/L FEU Sodium (137-145) mmol/L Potassium (3.5-5.1) mmol/L Chloride (98-107) mmol/L Carbon Dioxide (22-30) mmol/L Anion Gap mmol/L BUN (7-17) mg/dL Creatinine (0.52-1.04) mg/dL Est GFR (CKD-EPI)AfAm (>60 ml/min/1.73 sqM) Est GFR (CKD-EPI)NonAf (>60 ml/min/1.73 sqM) Glucose (74-99) mg/dL Plasma Lactic Acid Osmani 1.3 (0.7-2.0) mmol/L Calcium (8.4-10.2) mg/dL Total Bilirubin (0.2-1.3) mg/dL AST (14-36) U/L ALT (4-34) U/L Alkaline Phosphatase (38-126) U/L Troponin I <0.012 (0.000-0.034) ng/mL NT-Pro-B Natriuret Pep 592 pg/mL Total Protein (6.3-8.2) g/dL Albumin (3.5-5.0) g/dL 10/15/20 19:23 Twelve-lead EKG shows ventricular rate 105 bpm, normal RI interval and Bharathi complex, no ST elevation or depression, interpreted by me as sinus tachycardia. Disposition Clinical Impression: COPD with acute exacerbation Disposition: ADMITTED IP TO THIS HOSP Condition: Fair Is patient prescribed a controlled substance at d/c from ED?: No Referrals: Gavin Riggs [Primary Care Provider] - 1-2 days
[2020-10-15] MEDS ORDERED: ONDANSETRON 4 MG/2 ML VIAL IVP PRN (19:56)
[2020-10-15] MEDS ORDERED: MAG HYDROX/AL HYDROX/SIMETH 30 ML CUP PO PRN (19:56)
[2020-10-15] MEDS ORDERED: IBUPROFEN 400 MG TAB PO PRN (19:56)
[2020-10-15] MEDS ORDERED: DOCUSATE 100 MG CAP PO PRN (19:56)
[2020-10-15] MEDS ORDERED: NALOXONE 0.4 MG/ML 1 ML VIAL IV PRN (19:56)
[2020-10-15] MEDS: BUDESONIDE 0.5 MG/2 ML NEBU INHALATION SCH (21:47)
[2020-10-15] MEDS: IPRATROPIUM-ALBUTEROL 3 ML NEB INHALATION PRN (21:47)
[2020-10-15] MEDS: FORMOTEROL FUMARATE 20 MCG/2 ML NEBU INHALATION SCH (21:47)
[2020-10-15] MEDS: traZODone HCL 50 MG TAB PO SCH (22:42)
[2020-10-15] MEDS: FERROUS SULFATE 325 MG TAB PO SCH (22:42)
[2020-10-15] MEDS: MAGNESIUM OXIDE 400 MG TAB PO SCH (22:42)
[2020-10-15] MEDS: MONTELUKAST 10 MG TAB PO SCH (22:43)
[2020-10-15] MEDS: ITRACONAZOLE 100 MG CAP PO SCH (22:48)
--- NOTE | 2020-10-16 00:28 | P.HPIM ---
History of Present Illness H&P Date: 10/15/20 The patient is a 65-year-old female with a PMH of end-stage COPD on home oxygen presented to the emergency room due to shortness of breath. The patient notes that she was admitted to [facility] roughly a week ago and was discharged with a 7 day course of prednisone. She completed the course and noted that she continued to have shortness of breath along with wheezing despite using her inhalers as prescribed. Also reports cough productive of green phlegm, chronic in nature. She denied chest discomfort, fever, chills. Denied lower extremity pain or swelling. Also denied nausea, vomiting, abdominal pain, or diarrhea. Chest x-ray in the emergency room was unremarkable. Laboratory evaluation was reviewed and was remarkable for hemoglobin of 11, CO2 37, BUN 34, glucose 118, troponin less than 0.012, and coronavirus negative. Review of Systems Pertinent positives and negatives as discussed in HPI, a complete review of systems was performed and all other systems are negative. Past Medical History Past Medical History: Cancer, COPD, Deep Vein Thrombosis (DVT), Hypertension, Pneumonia, Rheumatoid Arthritis (RA) Additional Past Medical History / Comment(s): hearing difficulty currently, colitis, osteopenia, hx cancer of appendix, uses oxygen 2L continuous, waiting for lung transplant due to COPD. chronic back pain, restless leg, recent admission for exacerbation of COPD. 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 Colonoscopy 2016. pain procedure at [facility] with Dr Ty. [facility] with unilateral oophorectomy 1983. Partial vulvectomy in 2000. Past Anesthesia/Blood Transfusion Reactions: No Reported Reaction Additional Past Anesthesia/Blood Transfusion Reaction / Comment(s): states is not supposed to have general anesthesia R/T awaiting lung transplant Past Psychological History: ADD/ADHD, Anxiety Additional Psychological History / Comment(s): . Smoking Status: Former smoker Past Alcohol Use History: None Reported Additional Past Alcohol Use History / Comment(s): Pt. states she quit smoking in 1999. smoked 1-1 1/2 PPD, started smoking age 13. Past Drug Use History: None Reported Additional Drug Use History / Comment(s): Quit using Marijuana 04/2016. - Past Family History Father Family Medical History: Cancer, COPD Additional Family Medical History / Comment(s): COLON cancer Mother Family Medical History: Cancer Additional Family Medical History / Comment(s): ESOPHAGUS cancer Sister(s) Family Medical History: Cancer Additional Family Medical History / Comment(s): CERVICAL cancer Medications and Allergies Home Medications Medication Instructions Recorded Confirmed Type Multivit-Min/FA/Lycopen/Lutein 1 tab PO DAILY 04/19/18 10/15/20 History [Centrum Silver Tablet] Roflumilast [Daliresp] 500 mcg PO HS 10/09/19 10/15/20 History Yupelri 175mcg/3ml 175 mcg INHALATION DAILY@1800 10/09/19 10/15/20 History rOPINIRole HCL [Requip] 0.5 mg PO HS 03/24/20 10/15/20 History Cholecalciferol [Vitamin D3 (25 2,000 units PO DAILY 04/08/20 10/15/20 History Mcg = 1000 Iu)] Ipratropium-Albuterol Nebulize 3 ml INHALATION RT-QID PRN 04/18/20 10/15/20 History [Duoneb 0.5 mg-3 mg/3 ml Soln] Montelukast [Singulair] 10 mg PO HS #30 tab 04/22/20 10/15/20 Rx Magnesium Oxide [Mag-Ox] 200 mg PO HS 09/15/20 10/15/20 History Omeprazole Magnesium 20 mg PO DAILY 09/16/20 10/15/20 History Budesonide [Pulmicort] 0.5 mg INHALATION RT-BID 10/11/20 10/15/20 History Ferrous Sulfate [Iron] 325 mg PO MOWEFR 10/11/20 10/15/20 History Formoterol Fumarate [Perforomist] 20 mg INHALATION RT-BID 10/11/20 10/15/20 History Itraconazole [Sporanox] 100 mg PO BID 10/11/20 10/15/20 History Loratadine [Claritin] 10 mg PO DAILY 10/11/20 10/15/20 History Melatonin 3 mg PO HS 10/11/20 10/15/20 History diphenhydrAMINE HCL 12.5 mg PO HS 10/11/20 10/15/20 History traZODone HCL 75 mg PO HS 10/11/20 10/15/20 History Acetaminophen Tab [Tylenol Tab] 1,000 mg PO Q6HR PRN 10/15/20 10/15/20 History Benazepril HCl 20 mg PO DAILY 10/15/20 10/15/20 History Nasal [place] 1 spray EA NOSTRIL DAILY PRN 10/15/20 10/15/20 History hydrOXYzine HCL [Atarax] 10 - 20 mg PO TID PRN 10/15/20 10/15/20 History predniSONE [Deltasone] 80 mg PO DAILY 10/15/20 10/15/20 History Allergies Allergy/AdvReac Type Severity Reaction Status Date / Time infliximab [From Remicade] Allergy Dyspnea/HIV Verified 10/15/20 18:17 ES propoxyphene [From Darvon] Allergy Rash/Hives Verified 10/15/20 18:17 adhesive tape AdvReac "is hard Verified 10/15/20 18:17 on skin" Physical Exam Vitals: Vital Signs Temp Pulse Pulse Resp BP BP Pulse Ox 10/15/20 21:57 93 10/15/20 21:56 93 10/15/20 21:48 93 10/15/20 20:28 97.8 F 90 16 157/73 97 10/15/20 19:53 97.7 F 81 18 145/65 98 10/15/20 17:30 102 H 22 135/65 98 10/15/20 17:02 99.0 F 106 H 22 140/56 97 Intake and Output 10/15/20 10/15/20 10/15/20 06:59 14:59 22:59 Other: Weight 75.296 kg General: non toxic, no distress, appears at stated age, obese Derm: no unusual rashes/lesions no unusual ecchymoses, warm, dry Head: atraumatic, normocephalic, symmetric Eyes: EOMI, no lid lag, anicteric sclera, pupils equal round reactive to light ENT: Nose and ears atraumatic, no thrush, no pharyngeal erythema Neck: No thyromegaly, no cervical lymphadenopathy, trachea midline, supple Mouth: no lip lesion, mucus membranes moist Cardiovascular: S1S2 reg, no murmur, positive posterior tibial pulse bilateral, no edema, capillary refill less than 2 seconds Lungs: Poor air entry bilaterally with wheezing noted, no rhonchi, no rales, no accessory muscle use, no conversational dyspnea Abdominal: soft, nontender to palpation, no guarding, no appreciable organomegaly, normal bowel sounds Ext: no gross muscle atrophy, muscle strength 5 out of 5 in all 4 extremities grossly, no contractures, Neuro: CN II-XI grossly intact, light touch intact all 4 extremities, finger to nose within normal limits, Psych: Alert, oriented, appropriate affect Results CBC & Chem 7: 10/15/20 17:43 10/15/20 17:43 Labs: Abnormal Lab Results - Last 24 Hours (Table) 10/15/20 10/15/20 10/15/20 Range/Units 17:43 17:43 17:43 WBC 12.0 H (3.8-10.6) k/uL RBC 3.59 L (3.80-5.40) m/uL Hgb 11.0 L (11.4-16.0) gm/dL Neutrophils # 11.0 H (1.3-7.7) k/uL Lymphocytes # 0.5 L (1.0-4.8) k/uL APTT 20.3 L (22.0-30.0) sec Carbon Dioxide 37 H (22-30) mmol/L BUN 34 H (7-17) mg/dL Glucose 118 H (74-99) mg/dL Total Protein 6.1 L (6.3-8.2) g/dL Albumin 3.4 L (3.5-5.0) g/dL Thrombosis Risk Factor Assmnt - Choose All That Apply Each Factor Represents 1 point: Abnormal pulmonary function (COPD), Obesity (BMI >25) Each Risk Factor Represents 2 Points: Age 61-74 years Thrombosis Risk Factor Assessment Total Risk Factor Score: 4 Thrombosis Risk Factor Assessment Level: Moderate Risk Assessment and Plan Plan: Acute COPD exacerbation -DuoNeb's [id number] and when necessary -Solu-Medrol -Pulmonary consult -Supplemental oxygen -Insulin supplementation scale Leukocytosis -Likely reactive from steroid use -No signs of active infection at this time Alkalosis -Likely compensatory with underlying hypercapnia Chronic conditions: Hypertension -Continue with home meds DVT prophylaxis -heparin subq The patient is admitted with an anticipated less than 2 midnight stay for evaluation of acute COPD exacerbation CODE STATUS: Full Code Discussed with: Patient Anticipated discharge date: 1-[address]: Home A total of 40 minutes was spent on the care of this complex patient more than 50% of the time was spent in counseling and care coordination.
[2020-10-16] MEDS: NON FORMULARY DRUG (Roflumilast [Daliresp] 500 MCG Tablet) PO SCH ×2 (01:25→21:05)
[2020-10-16] MEDS: IPRATROPIUM-ALBUTEROL 3 ML NEB INHALATION PRN ×4 (02:14→11:17)
[2020-10-16] MEDS ORDERED: BENZOCAINE/MENTHOL LOZENG 1 EACH LOZENGE MUCOUS MEM PRN (05:16)
[2020-10-16 06:33] LABS: Glucose,Whole Blood 152 mg/dL (75-99)
[2020-10-16] MEDS: methylPREDNISolone SOD SUCCI 125 MG/2 ML VIAL IV SCH ×3 (06:36→16:58)
[2020-10-16] MEDS: INSULIN ASPART (NovoLOG) 100 UNIT/ML VIAL SQ SCH ×4 (06:37→21:04)
[2020-10-16 07:18] LABS: HCT 31.8 % (34.0-46.0); HGB 9.8 gm/dL (11.4-16.0); Hypochromasia Moderate; MCH 29.6 pg (25.0-35.0); MCHC 30.9 g/dL (31.0-37.0); MCV 95.8 fL (80.0-100.0); Mean Platelet Volume 7.7; Platelet Count 332 k/uL (150-450); RBC 3.32 m/uL (3.80-5.40); RDW 14.9 % (11.5-15.5); WBC 14.5 k/uL (3.8-10.6)
[2020-10-16 07:29] LABS: African American GFR (CKD) >90 (>60 ml/min/1.73 sqM); Anion Gap 0 mmol/L; Blood Urea Nitrogen 31 mg/dL (7-17); Calcium 8.9 mg/dL (8.4-10.2); Carbon Dioxide 38 mmol/L (22-30); Chloride 103 mmol/L (98-107); Glucose 151 mg/dL (74-99); Non-African American GFR(CKD) >90 (>60 ml/min/1.73 sqM); Potassium 4.3 mmol/L (3.5-5.1); Sodium 141 mmol/L (137-145)
[2020-10-16] MEDS: BUDESONIDE 0.5 MG/2 ML NEBU INHALATION SCH ×2 (07:45→18:35)
[2020-10-16] MEDS: FORMOTEROL FUMARATE 20 MCG/2 ML NEBU INHALATION SCH ×2 (07:45→18:35)
[2020-10-16] MEDS: ITRACONAZOLE 100 MG CAP PO SCH ×2 (08:22→21:09)
[2020-10-16] MEDS: HEPARIN SODIUM,PORCINE 5,000 UNIT/ML 1 ML VIAL SQ SCH ×2 (08:23→16:59)
[2020-10-16] MEDS: lisinopriL 20 MG TAB PO SCH (08:23)
[2020-10-16] MEDS: LORATADINE 10 MG TAB PO SCH (08:23)
[2020-10-16] MEDS ORDERED: predniSONE 20 MG TAB PO SCH (09:00)
[2020-10-16 12:07] LABS: Glucose,Whole Blood 138 mg/dL (75-99)
--- NOTE | 2020-10-16 12:07 | P.PN ---
Subjective Progress Note Date: 10/16/20 Patient is not feeling any better this morning. She is still having significant shortness of breath sitting in bed. Her lungs are very diminished. Objective - Vital Signs Vital signs: Vital Signs Temp 97.3 F L 10/16/20 08:18 Pulse 110 H 10/16/20 11:28 Resp 18 10/16/20 11:28 BP 176/79 10/16/20 08:18 Pulse Ox 98 10/16/20 08:18 Intake & Output 10/15/20 10/16/20 10/16/20 18:59 06:59 18:59 Intake Total 240 Balance 240 Weight 75.296 kg 75.296 kg Intake: Oral 240 Other: # Voids 1 - Exam General: The patient is awake and alert, in no distress Eye: there is normal conjunctiva bilaterally. Neck: The neck is supple, there is no JVD. Cardiovascular: Normal S1-S2, no S3-S4, no murmurs. Respiratory: Lungs are diminished with mild end expiratory wheezing Gastrointestinal: Abdomen is soft, nontender Musculoskeletal: There is no pedal edema. Neurological:. Speech is normal. Skin: Skin is warm and dry - Labs CBC & Chem 7: 10/16/20 07:01 10/16/20 07:07 Labs: Abnormal Lab Results - Last 24 Hours (Table) 10/15/20 10/15/20 10/15/20 Range/Units 17:43 17:43 17:43 WBC 12.0 H (3.8-10.6) k/uL RBC 3.59 L (3.80-5.40) m/uL Hgb 11.0 L (11.4-16.0) gm/dL Hct (34.0-46.0) % MCHC (31.0-37.0) g/dL Neutrophils # 11.0 H (1.3-7.7) k/uL Lymphocytes # 0.5 L (1.0-4.8) k/uL APTT 20.3 L (22.0-30.0) sec Carbon Dioxide 37 H (22-30) mmol/L BUN 34 H (7-17) mg/dL Glucose 118 H (74-99) mg/dL POC Glucose (mg/dL) (75-99) mg/dL Total Protein 6.1 L (6.3-8.2) g/dL Albumin 3.4 L (3.5-5.0) g/dL 10/16/20 10/16/20 10/16/20 Range/Units 06:31 07:01 07:07 WBC 14.5 H (3.8-10.6) k/uL RBC 3.32 L (3.80-5.40) m/uL Hgb 9.8 L (11.4-16.0) gm/dL Hct 31.8 L (34.0-46.0) % MCHC 30.9 L (31.0-37.0) g/dL Neutrophils # (1.3-7.7) k/uL Lymphocytes # (1.0-4.8) k/uL APTT (22.0-30.0) sec Carbon Dioxide 38 H (22-30) mmol/L BUN 31 H (7-17) mg/dL Glucose 151 H (74-99) mg/dL POC Glucose (mg/dL) 152 H (75-99) mg/dL Total Protein (6.3-8.2) g/dL Albumin (3.5-5.0) g/dL Assessment and Plan Assessment: The patient is a 65-year-old female with a PMH of end-stage COPD on home oxygen presented to the emergency room due to shortness of breath. The patient notes that she was admitted to [facility] roughly a week ago and was discharged with a 7 day course of prednisone. She completed the course and noted that she continued to have shortness of breath along with wheezing despite using her inhalers as prescribed. Assessment and Plan Plan: Acute COPD exacerbation -DuoNeb's [id number] and when necessary -Solu-Medrol -Pulmonary consult -Supplemental oxygen -Insulin supplementation scale Severe COPD with chronic hypoxic respiratory failure on home O2 -Patient is on the transplant list at [facility] -I paged the lung site coordinator and informed him the patient is here. He got my phone number and will call me back with any recommendations Leukocytosis -Likely reactive from steroid use -No signs of active infection at this time Alkalosis -Likely compensatory with underlying hypercapnia Chronic conditions: Hypertension -Continue with home meds DVT prophylaxis -heparin subq The patient is admitted with an anticipated less than 2 midnight stay for evaluation of acute COPD exacerbation CODE STATUS: Full Code Discussed with: Patient Anticipated discharge date: 1-[address]: Home
--- NOTE | 2020-10-16 12:20 | P.CNPUL ---
History of Present Illness Consult date: 10/16/20 Reason for consult: COPD Chief complaint: Shortness of breath History of present illness: This is a 65-year-old white female with history of severe COPD, FEV1 is 27%, patient is O2 dependent, frequently on prednisone for recurrent episodes of COPD exacerbation, patient was recently at [facility] for symptoms of COPD exacerbation and was treated with prednisone again, took a 7 day course, continued to have cough and wheezing over the last few days, cough is described as nonproductive, dry hacking cough, denies any fever no chills, she has occasional wheezing. Patient was seen in the ER yesterday, admitted placed on IV Solu-Medrol, antibiotics empirically, and we were asked to see her on consultation. Patient normally sees Dr. Goodman, and has been evaluated at [place] on multiple occasions for potential lung transplantation in the future. Patient has multiple comorbidities including rheumatoid arthritis, hypertension, history of a vulvar cancer, since admission, the patient is feeling slightly im proved, but not back to her baseline. Chest x-ray showed minimal scarring and subsegmental atelectasis of the left base, chronic, no evidence of active infiltrate. CBC showed a bit of leukocytosis with WBC count of 12.0, she had a relatively normal electrolytes, her bicarb however is 38 suggestive of chronic respiratory acidosis with metabolic compensation. Covid 19 PCR was negative. Review of Systems Constitutional: Denies chills, Denies fever Eyes: denies blurred vision, denies pain Ears, nose, mouth and throat: Denies headache, Denies sore throat Cardiovascular: Denies chest pain, Denies shortness of breath Respiratory: As noted in HPI. Gastrointestinal: Denies abdominal pain, Denies diarrhea, Denies nausea, Denies vomiting Genitourinary: Denies dysuria, Denies hematuria Musculoskeletal: Denies myalgias Integumentary: Denies pruritus, Denies rash Neurological: Denies numbness, Denies weakness Psychiatric: Denies anxiety, Denies depression Endocrine: Denies fatigue, Denies weight change Past Medical History Past Medical History: Cancer, COPD, Deep Vein Thrombosis (DVT), Hypertension, Pneumonia, Rheumatoid Arthritis (RA) Additional Past Medical History / Comment(s): hearing difficulty currently, colitis, osteopenia, hx cancer of appendix, uses oxygen 2L continuous, waiting for lung transplant due to COPD. chronic back pain, restless leg, recent admission for exacerbation of COPD. 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 Colonoscopy 2016. pain procedure at [facility] with Dr Ty. TAD with unilateral oophorectomy 1983. Partial vulvectomy in 2000. Past Anesthesia/Blood Transfusion Reactions: No Reported Reaction Additional Past Anesthesia/Blood Transfusion Reaction / Comment(s): states is not supposed to have general anesthesia R/T awaiting lung transplant Past Psychological History: ADD/ADHD, Anxiety Additional Psychological History / Comment(s): . Smoking Status: Former smoker Past Alcohol Use History: None Reported Additional Past Alcohol Use History / Comment(s): Pt. states she quit smoking in 1999. smoked 1-1 1/2 PPD, started smoking age 13. Past Drug Use History: None Reported Additional Drug Use History / Comment(s): Quit using Marijuana 04/2016. - Past Family History Father Family Medical History: Cancer, COPD Additional Family Medical History / Comment(s): COLON cancer Mother Family Medical History: Cancer Additional Family Medical History / Comment(s): ESOPHAGUS cancer Sister(s) Family Medical History: Cancer Additional Family Medical History / Comment(s): CERVICAL cancer Medications and Allergies Home Medications Medication Instructions Recorded Confirmed Type Multivit-Min/FA/Lycopen/Lutein 1 tab PO DAILY 04/19/18 10/15/20 History [Centrum Silver Tablet] Roflumilast [Daliresp] 500 mcg PO HS 10/09/19 10/15/20 History Yupelri 175mcg/3ml 175 mcg INHALATION DAILY@1800 10/09/19 10/15/20 History rOPINIRole HCL [Requip] 0.5 mg PO HS 03/24/20 10/15/20 History Cholecalciferol [Vitamin D3 (25 2,000 units PO DAILY 04/08/20 10/15/20 History Mcg = 1000 Iu)] Ipratropium-Albuterol Nebulize 3 ml INHALATION RT-QID PRN 04/18/20 10/15/20 History [Duoneb 0.5 mg-3 mg/3 ml Soln] Montelukast [Singulair] 10 mg PO HS #30 tab 04/22/20 10/15/20 Rx Magnesium Oxide [Mag-Ox] 200 mg PO HS 09/15/20 10/15/20 History Omeprazole Magnesium 20 mg PO DAILY 09/16/20 10/15/20 History Budesonide [Pulmicort] 0.5 mg INHALATION RT-BID 10/11/20 10/15/20 History Ferrous Sulfate [Iron] 325 mg PO MOWEFR 10/11/20 10/15/20 History Formoterol Fumarate [Perforomist] 20 mg INHALATION RT-BID 10/11/20 10/15/20 History Itraconazole [Sporanox] 100 mg PO BID 10/11/20 10/15/20 History Loratadine [Claritin] 10 mg PO DAILY 10/11/20 10/15/20 History Melatonin 3 mg PO HS 10/11/20 10/15/20 History diphenhydrAMINE HCL 12.5 mg PO HS 10/11/20 10/15/20 History traZODone HCL 75 mg PO HS 10/11/20 10/15/20 History Acetaminophen Tab [Tylenol Tab] 1,000 mg PO Q6HR PRN 10/15/20 10/15/20 History Benazepril HCl 20 mg PO DAILY 10/15/20 10/15/20 History Nasal [place] 1 spray EA NOSTRIL DAILY PRN 10/15/20 10/15/20 History hydrOXYzine HCL [Atarax] 10 - 20 mg PO TID PRN 10/15/20 10/15/20 History predniSONE [Deltasone] 80 mg PO DAILY 10/15/20 10/15/20 History Allergies Allergy/AdvReac Type Severity Reaction Status Date / Time infliximab [From Remicade] Allergy Dyspnea/HIV Verified 10/15/20 18:17 ES propoxyphene [From Darvon] Allergy Rash/Hives Verified 10/15/20 18:17 adhesive tape AdvReac "is hard Verified 10/15/20 18:17 on skin" Physical Exam Vitals: Vital Signs Temp Pulse Pulse Resp BP BP Pulse Ox 10/16/20 11:28 110 H 18 10/16/20 11:18 110 H 20 10/16/20 09:00 111 H 22 10/16/20 08:18 97.3 F L 111 H 22 176/79 98 10/16/20 08:07 99 10/16/20 07:56 100 10/16/20 07:47 96 10/16/20 05:27 99 10/16/20 05:19 99 10/16/20 04:35 98.4 F 99 19 166/65 97 10/16/20 02:24 96 10/16/20 02:16 92 10/15/20 22:12 93 10/15/20 21:57 93 10/15/20 21:56 93 10/15/20 21:48 93 10/15/20 20:28 97.8 F 90 16 157/73 97 10/15/20 19:53 97.7 F 81 18 145/65 98 10/15/20 17:30 102 H 22 135/65 98 10/15/20 17:02 99.0 F 106 H 22 140/56 97 Intake and Output 10/15/20 10/16/20 10/16/20 22:59 06:59 14:59 Intake Total 240 Balance 240 Intake: Oral 240 Other: # Voids 2 1 Weight 75.296 kg GENERAL EXAM: Revealed a 65-year-old female on few liters nasal cannula, in no distress. HEAD: Normocephalic/atraumatic. ENT: PERRLA, EOMI, no icterus, no neck masses, no JVD, no stridor. Moist mucous membranes. CHEST: No chest wall deformity. Symmetrical expansion. LUNGS: Diminished breath sounds at the bases wheezing on forced expiratory man euver noted bilaterally. CVS: Regular rate and rhythm, normal S1 and S2, no gallops, no murmurs, no rubs ABDOMEN: Soft, nontender. No hepatosplenomegaly, normal bowel sounds, no guarding or rigidity. EXTREMITIES: No clubbing, no edema, no cyanosis, 2+ pulses and upper and lower extremities. MUSCULOSKELETAL: Muscle strength and tone normal. SKIN: No rashes CENTRAL NERVOUS SYSTEM: Alert and oriented 3 focal neurologic deficits PSYCHIATRIC: Normal mood, affect and normal mental status examination Results - Laboratory Findings CBC and BMP: 10/16/20 07:01 10/16/20 07:07 PT/INR, D-dimer PT 9.3 sec (9.0-12.0) 10/15/20 17:43 INR 0.9 (<1.2) 10/15/20 17:43 D-Dimer 0.23 mg/L FEU (<0.60) 10/15/20 17:43 Abnormal lab findings: Abnormal Labs 10/15/20 10/15/20 10/15/20 17:43 17:43 17:43 WBC 12.0 H RBC 3.59 L Hgb 11.0 L Hct MCHC Neutrophils # 11.0 H Lymphocytes # 0.5 L APTT 20.3 L Carbon Dioxide 37 H BUN 34 H Glucose 118 H POC Glucose (mg/dL) Total Protein 6.1 L Albumin 3.4 L 10/16/20 10/16/20 10/16/20 06:31 07:01 07:07 WBC 14.5 H RBC 3.32 L Hgb 9.8 L Hct 31.8 L MCHC 30.9 L Neutrophils # Lymphocytes # APTT Carbon Dioxide 38 H BUN 31 H Glucose 151 H POC Glucose (mg/dL) 152 H Total Protein Albumin 10/16/20 12:05 WBC RBC Hgb Hct MCHC Neutrophils # Lymphocytes # APTT Carbon Dioxide BUN Glucose POC Glucose (mg/dL) 138 H Total Protein Albumin - Diagnostic Findings Chest x-ray: image reviewed (As noted in HPI.) Assessment and Plan Assessment: Impression: Acute exacerbation of COPD Chronic hypoxic rest for a failure maintained on oxygen at home at 2 L to 3 L/m via nasal cannula. Remote history of deep vein thrombosis. Benign essential hypertension. History of rheumatoid arthritis. History of restless leg syndrome. 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 Recommendation: Patient will remain on the present medications including: Solu-Medrol, DuoNeb, Pulmicort, Perforomist,daliresp GI and DVT prophylaxis, Consider discharge planning in the next 24-48 hours. We'll continue to follow. Time with Patient: Greater than 30
[2020-10-16] MEDS: IPRATROPIUM-ALBUTEROL 3 ML NEB INHALATION SCH ×2 (14:46→18:35)
[2020-10-16] MEDS: hydrOXYzine HCL 10 MG TAB PO PRN (15:12)
[2020-10-16 16:55] LABS: Glucose,Whole Blood 190 mg/dL (75-99)
[2020-10-16] MEDS: HYDROcodone/APAP 5-325MG 1 EACH TAB PO PRN (17:28)
[2020-10-16] MEDS: YUPELRI INHALATION SCH (18:34)
[2020-10-16 20:56] LABS: Glucose,Whole Blood 115 mg/dL (75-99)
[2020-10-16] MEDS: MAGNESIUM OXIDE 400 MG TAB PO SCH (21:10)
[2020-10-16] MEDS: MONTELUKAST 10 MG TAB PO SCH (21:10)
[2020-10-16] MEDS: traZODone HCL 50 MG TAB PO SCH (21:10)
[2020-10-17] MEDS: methylPREDNISolone SOD SUCCI 125 MG/2 ML VIAL IV SCH ×4 (01:00→17:15)
[2020-10-17] MEDS: HEPARIN SODIUM,PORCINE 5,000 UNIT/ML 1 ML VIAL SQ SCH ×3 (01:00→16:43)
[2020-10-17] MEDS: TEMAZEPAM 15 MG CAP PO PRN ×2 (01:00→22:00)
[2020-10-17] MEDS: IPRATROPIUM-ALBUTEROL 3 ML NEB INHALATION SCH ×6 (01:14→19:16)
[2020-10-17 06:10] LABS: Glucose,Whole Blood 130 mg/dL (75-99)
[2020-10-17] MEDS: lisinopriL 20 MG TAB PO SCH (08:08)
[2020-10-17] MEDS: LORATADINE 10 MG TAB PO SCH (08:08)
[2020-10-17] MEDS: ITRACONAZOLE 100 MG CAP PO SCH ×2 (08:09→20:46)
[2020-10-17] MEDS: FORMOTEROL FUMARATE 20 MCG/2 ML NEBU INHALATION SCH ×2 (08:26→19:16)
[2020-10-17] MEDS: BUDESONIDE 0.5 MG/2 ML NEBU INHALATION SCH ×2 (08:26→19:16)
--- NOTE | 2020-10-17 10:22 | P.PN ---
Subjective Progress Note Date: 10/17/20 Patient is not feeling any better today. She continues to be short of breath. Objective - Vital Signs Vital signs: Vital Signs Temp 97.4 F L 10/17/20 08:43 Pulse 63 10/17/20 09:00 Resp 22 10/17/20 09:00 BP 139/69 10/17/20 08:43 Pulse Ox 94 L 10/17/20 08:43 Intake & Output 10/16/20 10/17/20 10/17/20 18:59 06:59 18:59 Intake Total 240 540 360 Balance 240 540 360 Intake: Oral 240 540 360 Other: Voiding Method Toilet Toilet Toilet # Voids 1 - Exam General: The patient is awake and alert, in no distress Eye: there is normal conjunctiva bilaterally. Neck: The neck is supple, there is no JVD. Cardiovascular: Normal S1-S2, no S3-S4, no murmurs. Respiratory: Lungs are diminished with mild end expiratory wheezing Gastrointestinal: Abdomen is soft, nontender Musculoskeletal: There is no pedal edema. Neurological:. Speech is normal. Skin: Skin is warm and dry - Labs CBC & Chem 7: 10/16/20 07:01 10/16/20 07:07 Labs: Abnormal Lab Results - Last 24 Hours (Table) 10/16/20 10/16/20 10/16/20 Range/Units 12:05 16:49 20:55 POC Glucose (mg/dL) 138 H 190 H 115 H (75-99) mg/dL 10/17/20 Range/Units 06:09 POC Glucose (mg/dL) 130 H (75-99) mg/dL Assessment and Plan Assessment: The patient is a 65-year-old female with a PMH of end-stage COPD on home oxygen presented to the emergency room due to shortness of breath. The patient notes that she was admitted to [facility] roughly a week ago and was discharged with a 7 day course of prednisone. She completed the course and noted that she continued to have shortness of breath along with wheezing despite using her inhalers as prescribed. Assessment and Plan Plan: Acute COPD exacerbation -DuoNeb's [id number] and when necessary -Solu-Medrol will be transitioned to oral prednisone tomorrow -Pulmonary consult -Supplemental oxygen -Insulin supplementation scale Severe COPD with chronic hypoxic respiratory failure on home O2 -Patient is on the transplant list at [facility] -I the patient condition with the clay pigeon loader lungs transplant physician at [facility]. She agreed to the plan. Taper course prednisone upon discharge. Leukocytosis -Likely reactive from steroid use -No signs of active infection at this time Alkalosis -Likely compensatory with underlying hypercapnia Chronic conditions: Hypertension -Continue with home meds DVT prophylaxis -heparin subq The patient is admitted with an anticipated less than 2 midnight stay for evaluation of acute COPD exacerbation CODE STATUS: Full Code Discussed with: Patient Anticipated discharge date: 1-[address]: Home
[2020-10-17 11:48] LABS: Glucose,Whole Blood 162 mg/dL (75-99)
[2020-10-17] MEDS: INSULIN ASPART (NovoLOG) 100 UNIT/ML VIAL SQ SCH ×4 (11:50→20:45)
--- NOTE | 2020-10-17 13:47 | P.PN ---
Subjective Progress Note Date: 10/17/20 Principal diagnosis: Acute exacerbation of COPD This is a 65-year-old white female with history of severe COPD, FEV1 is 27%, patient is O2 dependent, frequently on prednisone for recurrent episodes of COPD exacerbation, patient was recently at [facility] for symptoms of COPD exacerbation and was treated with prednisone again, took a 7 day course, continued to have cough and wheezing over the last few days, cough is described as nonproductive, dry hacking cough, denies any fever no chills, she has occasional wheezing. Patient was seen in the ER yesterday, admitted placed on IV Solu-Medrol, antibiotics empirically, and we were asked to see her on consultation. Patient normally sees Dr. Goodman, and has been evaluated at [facility] on multiple occasions for potential lung transplantation in the future. Patient has multiple comorbidities including rheumatoid arthritis, hypertension, history of a vulvar cancer, since admission, the patient is feeling slightly improved, but not back to her baseline. Chest x-ray showed minimal scarring and subsegmental atelectasis of the left base, chronic, no evidence of active infiltrate. CBC showed a bit of leukocytosis with WBC count of 12.0, she had a relatively normal electrolytes, her bicarb however is 38 suggestive of chronic respiratory acidosis with metabolic compensation. Covid 19 PCR was negative. Reevaluated today on 10/17/20, patient remains in the observation unit, feeling slightly better, but not back to her baseline. Continues to have occasional cough and wheezing, shortness of breath at rest and on exertion, denies any fever no chills no hemoptysis no chest pain. Her O2 saturation is 94% on 3 L. Patient is afebrile, and her blood pressure is stable. PCR for Covid 19 is negative. Objective - Vital Signs Vital signs: Vital Signs Temp 97.4 F L 10/17/20 08:43 Pulse 63 10/17/20 09:00 Resp 22 10/17/20 09:00 BP 139/69 10/17/20 08:43 Pulse Ox 94 L 10/17/20 08:43 Intake & Output 10/16/20 10/17/20 10/17/20 18:59 06:59 18:59 Intake Total 240 540 720 Balance 240 540 720 Intake: Oral 240 540 720 Other: Voiding Method Toilet Toilet Toilet # Voids 1 1 - Exam GENERAL EXAM: Revealed a 65-year-old female , in no distress. HEAD: Normocephalic/atraumatic. ENT: PERRLA, EOMI, no icterus, no neck masses, no JVD, no stridor. Moist mucous membranes. CHEST: No chest wall deformity. Symmetrical expansion. LUNGS: Diminished breath sounds at the bases , no crackles or rhonchi or wheezes. CVS: Regular rate and rhythm, normal S1 and S2, no gallops, no murmurs, no rubs ABDOMEN: Soft, nontender. No hepatosplenomegaly, normal bowel sounds, no guarding or rigidity. EXTREMITIES: No clubbing, no edema, no cyanosis, 2+ pulses and upper and lower extremities. MUSCULOSKELETAL: Muscle strength and tone normal. SKIN: No rashes CENTRAL NERVOUS SYSTEM: Alert and oriented 3 focal neurologic deficits PSYCHIATRIC: Normal mood, affect and normal mental status examination - Labs CBC & Chem 7: 10/16/20 07:01 10/16/20 07:07 Labs: Abnormal Lab Results - Last 24 Hours (Table) 10/16/20 10/16/20 10/17/20 Range/Units 16:49 20:55 06:09 POC Glucose (mg/dL) 190 H 115 H 130 H (75-99) mg/dL 10/17/20 Range/Units 11:43 POC Glucose (mg/dL) 162 H (75-99) mg/dL Assessment and Plan Assessment: Impression: Acute exacerbation of COPD Chronic hypoxic respiratory failure Remote history of deep vein thrombosis. Benign essential hypertension. History of rheumatoid arthritis. History of restless leg syndrome. 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 Recommendation: Patient will remain on the present medications including: Solu-Medrol, DuoNeb, Pulmicort, Perforomist,daliresp GI and DVT prophylaxis, Consider discharge in the next 24 hours Patient should follow up on outpatient basis with Dr. Goodman. We'll continue to follow. Time with Patient: Less than 30
[2020-10-17] MEDS: hydrOXYzine HCL 10 MG TAB PO PRN (15:01)
[2020-10-17 16:37] LABS: Glucose,Whole Blood 197 mg/dL (75-99)
[2020-10-17] MEDS: YUPELRI INHALATION SCH (19:08)
[2020-10-17 20:39] LABS: Glucose,Whole Blood 167 mg/dL (75-99)
[2020-10-17] MEDS: traZODone HCL 50 MG TAB PO SCH (20:46)
[2020-10-17] MEDS: MONTELUKAST 10 MG TAB PO SCH (20:46)
[2020-10-17] MEDS: MAGNESIUM OXIDE 400 MG TAB PO SCH (20:47)
[2020-10-17] MEDS: NON FORMULARY DRUG (Roflumilast [Daliresp] 500 MCG Tablet) PO SCH (20:47)
[2020-10-18] MEDS: HEPARIN SODIUM,PORCINE 5,000 UNIT/ML 1 ML VIAL SQ SCH ×3 (00:27→17:20)
[2020-10-18] MEDS: methylPREDNISolone SOD SUCCI 125 MG/2 ML VIAL IV SCH ×2 (00:27→06:38)
[2020-10-18] MEDS: IPRATROPIUM-ALBUTEROL 3 ML NEB INHALATION SCH ×3 (04:44→07:55)
[2020-10-18 06:19] LABS: Glucose,Whole Blood 164 mg/dL (75-99)
[2020-10-18] MEDS: INSULIN ASPART (NovoLOG) 100 UNIT/ML VIAL SQ SCH ×4 (06:39→20:42)
[2020-10-18] MEDS: FORMOTEROL FUMARATE 20 MCG/2 ML NEBU INHALATION SCH ×2 (07:55→19:35)
--- NOTE | 2020-10-18 08:42 | PN ---
PROGRESS NOTE PULMONARY/CRITICAL CARE PROGRESS NOTE: DATE OF SERVICE: 10/18/2020 This is a 65-year-old female with a history of severe COPD. FEV1 is 27% of predicted. She has chronic hypoxemic respiratory failure, is actually listed for lung transplantation at [facility]. I did check that out with Catherine Jj, who is the nurse coordinator for all organ transplant at [facility]. Anyway, because she is in the hospital here with a COPD exacerbation, she is currently inactive. Anyway, the patient complains of increasing shortness of breath, chest tightness, wheezing, cough and phlegm production. She has been here since 10/15. She feels like she is not much better or any better. Typically she sees Dr. Goodman. Currently, she is not on any IV fluids. Her nurse is Valencia Foy and she is on 8 L nasal cannula. Currently still having quite a bit of shortness of breath. Current vital signs are reviewed. Her temperature is 97.7, heart rate 108, respiratory rate in the low to mid 20s, blood pressure is 138/69 with a mean of 92 with saturations are in the mid 90s. Appears quite tachypneic and dyspneic. HEENT: Examination is grossly unremarkable. She does have a delong face. NECK: Supple, full range of motion. No adenopathy. Neck veins are flat. CARDIOVASCULAR: Examination reveals tachycardia. Heart rate 108. S1, S2 normal. LUNGS: Reveal diffuse coarse inspiratory and expiratory rhonchi and expiratory wheezes. Breath sounds equal but diminished throughout. No crackles. ABDOMEN: Soft, but obese. EXTREMITIES: Intact. No edema. SKIN: Without rash. NEUROLOGIC: Examination is nonfocal. LABS: Reviewed. Nothing new has been ordered. There was a sugar which is 164. Microbiology is all negative. Chest x-ray from 10/15 shows no evidence of acute infiltrate. There is some basilar atelectasis noted. CURRENT MEDICATIONS: Reviewed. The patient is on Cepacol lozenges, Pulmicort, Colace, iron, formoterol, subcu heparin, [place], Atarax, ibuprofen, insulin, DuoNeb, itraconazole, lisinopril, loratadine, Mag-Ox, Maalox, Singulair, Narcan, Zofran, Daliresp, Requip, Restoril, trazodone and Yupelri. ASSESSMENT: 1. Acute exacerbation of COPD, in a patient with severe chronic obstructive pulmonary disease, with an FEV1 that is 27% of predicted. 2. Chronic hypoxemic respiratory failure. 3. History of deep venous thrombosis. 4. Benign essential hypertension. 5. History of rheumatoid arthritis. 6. Restless legs syndrome. 7. History of right colectomy. 8. History of vulvar cancer, secondary to HPV. 9. Truncal obesity. 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 PLAN: The patient is on appropriate medications. Will continue to follow. Prognosis is guarded. She is currently listed for lung transplantation at [facility], although she is inactive currently because of the fact that she has been here with a COPD exacerbation. She wants to be transferred to [facility], but that will be a lateral transfer. They probably do not have beds anyway. I did check with the ad operations coordinator at [facility] to confirm the fact that she was on the list. She is listed but inactive. Additional recommendations and suggestions are forthcoming. MMSHAKIRAL / IJN: [id number] /
[2020-10-18] MEDS: ITRACONAZOLE 100 MG CAP PO SCH ×2 (08:57→20:54)
[2020-10-18] MEDS: lisinopriL 20 MG TAB PO SCH (08:57)
[2020-10-18] MEDS: LORATADINE 10 MG TAB PO SCH (08:57)
--- NOTE | 2020-10-18 11:18 | XR ---
EXAMINATION TYPE: XR chest 1V portable DATE OF EXAM: 10/18/2020 Comparison: 10/15/2020 Clinical History: 65 year-old female COPD exacerbation Findings: The heart is upper limits of normal in size. Atherosclerotic arch calcifications. Old healed left-norris ed rib fracture. Some patchy density at the peripheral. No sizable effusion. Impression: Mild patchy peripheral left lower lung atelectasis versus early infiltrate.
[2020-10-18] MEDS: hydrOXYzine HCL 10 MG TAB PO PRN (11:40)
[2020-10-18 12:14] LABS: Glucose,Whole Blood 161 mg/dL (75-99)
[2020-10-18] MEDS: ALBUTEROL NEBULIZED 2.5 MG/3 ML INHALATION SCH ×3 (12:32→19:35)
--- NOTE | 2020-10-18 13:31 | P.PN ---
Subjective Progress Note Date: 10/18/20 Patient is still complaining of severe shortness of breath today. Her lungs are still very tight. She feels worse compared to yesterday. Objective - Vital Signs Vital signs: Vital Signs Temp 97.9 F 10/18/20 08:36 Pulse 107 H 10/18/20 12:36 Resp 20 10/18/20 09:00 BP 146/65 10/18/20 08:36 Pulse Ox 97 10/18/20 08:36 Intake & Output 10/17/20 10/18/20 10/18/20 18:59 06:59 18:59 Intake Total 720 360 Balance 720 360 Intake: Oral 720 360 Other: Voiding Method Toilet Toilet Toilet # Voids 1 1 - Exam General: The patient is awake and alert, in no distress Eye: there is normal conjunctiva bilaterally. Neck: The neck is supple, there is no JVD. Cardiovascular: Normal S1-S2, no S3-S4, no murmurs. Respiratory: Lungs are diminished with mild end expiratory wheezing Gastrointestinal: Abdomen is soft, nontender Musculoskeletal: There is no pedal edema. Neurological:. Speech is normal. Skin: Skin is warm and dry - Labs CBC & Chem 7: 10/16/20 07:01 10/16/20 07:07 Labs: Abnormal Lab Results - Last 24 Hours (Table) 10/17/20 10/17/20 10/18/20 Range/Units 16:35 20:38 06:19 POC Glucose (mg/dL) 197 H 167 H 164 H (75-99) mg/dL 10/18/20 Range/Units 12:12 POC Glucose (mg/dL) 161 H (75-99) mg/dL Assessment and Plan Assessment: The patient is a 65-year-old female with a PMH of end-stage COPD on home oxygen presented to the emergency room due to shortness of breath. The patient notes that she was admitted to [facility] roughly a week ago and was di scharged with a 7 day course of prednisone. She completed the course and noted that she continued to have shortness of breath along with wheezing despite using her inhalers as prescribed. Assessment and Plan Plan: Acute COPD exacerbation -DuoNeb's [id number] and when necessary, Pulmicort twice daily, formoterol twice daily -Solu-Medrol will be transitioned to oral prednisone tomorrow -Pulmonary consult -Supplemental oxygen -Insulin supplementation scale Severe COPD with chronic hypoxic respiratory failure on home O2 -Patient is on the transplant list at [facility] -I discussed the patient condition with the marble mason lungs transplant physician at [facility]. She agreed to the plan. Taper course prednisone upon discharge. Leukocytosis -Likely reactive from steroid use -No signs of active infection at this time Alkalosis -Likely compensatory with underlying hypercapnia Chronic conditions: Hypertension -Continue with home meds DVT prophylaxis -heparin subq Discharge planning pending clinical course
[2020-10-18 16:37] LABS: Glucose,Whole Blood 210 mg/dL (75-99)
[2020-10-18] MEDS: BUDESONIDE 1 MG/2 ML NEBU INHALATION SCH (19:35)
[2020-10-18 20:44] LABS: Glucose,Whole Blood 94 mg/dL (75-99)
[2020-10-18] MEDS: FERROUS SULFATE 325 MG TAB PO SCH (20:52)
[2020-10-18] MEDS: traZODone HCL 50 MG TAB PO SCH (20:54)
[2020-10-18] MEDS: MONTELUKAST 10 MG TAB PO SCH (20:54)
[2020-10-18] MEDS: MAGNESIUM OXIDE 400 MG TAB PO SCH (20:54)
[2020-10-18] MEDS: TEMAZEPAM 15 MG CAP PO PRN (20:58)
[2020-10-18] MEDS: YUPELRI INHALATION SCH (23:34)
[2020-10-18] MEDS: ALBUTEROL NEBULIZED 2.5 MG/3 ML INHALATION PRN (23:38)
[2020-10-19] MEDS: NON FORMULARY DRUG (Roflumilast [Daliresp] 500 MCG Tablet) PO SCH ×2 (00:48→20:08)
[2020-10-19] MEDS: HEPARIN SODIUM,PORCINE 5,000 UNIT/ML 1 ML VIAL SQ SCH ×3 (00:49→16:57)
[2020-10-19] MEDS: BUDESONIDE 0.5 MG/2 ML NEBU INHALATION SCH (01:03)
[2020-10-19] MEDS: ALBUTEROL NEBULIZED 2.5 MG/3 ML INHALATION PRN ×2 (03:38→23:35)
[2020-10-19 07:05] LABS: Glucose,Whole Blood 126 mg/dL (75-99)
[2020-10-19] MEDS: INSULIN ASPART (NovoLOG) 100 UNIT/ML VIAL SQ SCH ×4 (07:21→20:08)
[2020-10-19] MEDS: ALBUTEROL NEBULIZED 2.5 MG/3 ML INHALATION SCH ×4 (07:28→19:32)
[2020-10-19] MEDS: BUDESONIDE 1 MG/2 ML NEBU INHALATION SCH ×2 (07:28→19:32)
[2020-10-19] MEDS: FORMOTEROL FUMARATE 20 MCG/2 ML NEBU INHALATION SCH ×2 (07:28→19:43)
[2020-10-19] MEDS: ITRACONAZOLE 100 MG CAP PO SCH ×2 (08:30→20:07)
[2020-10-19] MEDS: LORATADINE 10 MG TAB PO SCH (08:30)
[2020-10-19] MEDS: methylPREDNISolone SOD SUCCI 125 MG/2 ML VIAL IV SCH ×3 (08:30→16:59)
[2020-10-19] MEDS: lisinopriL 20 MG TAB PO SCH (08:31)
--- NOTE | 2020-10-19 08:38 | PN ---
PROGRESS NOTE PULMONARY/CRITICAL CARE PROGRESS NOTE: DATE OF SERVICE: October 19, 2020 A 65-year-old female well known to our service. She has severe COPD. FEV1 is 27% of predicted. She is stage IV disease. In addition, she suffers from chronic hypoxemic respiratory failure. She actually has been evaluated and listed for lung transplantation at [facility]. I spoke to the chief coordinator of all transplantation, Catherine Jj yesterday at [facility], and she confirmed the fact that she has been listed for transplantation. Unfortunately, when the patient is admitted to the hospital for COPD exacerbation, her situation becomes inactive. Anyway, the patient is on 4 L nasal cannula. She is not receiving any IV fluids. She had a very tough time last night with her breathing. Her medications include Albuterol updrafts q.4 hours and p.r.n., a long-acting muscarinic antagonist, used once a day, long-acting beta agonist, inhaled corticosteroids, systemic corticosteroids, and oral antibiotics. Her customer support advisor is Dr. Goodman. PHYSICAL EXAMINATION: VITAL SIGNS: Current vital signs are reviewed. They include a temperature 97.5, heart rate 110, respiratory rate 25, blood pressure 138/68, mean 91 and 4 L saturation 95%. GENERAL: Appears in no acute distress. Is quite tachypneic and dyspneic with some conversational dyspnea. No audible wheezing or use of accessory muscles. HEENT: Examination is grossly unremarkable. She does have a delong face. NECK: Supple. Full range of motion. No adenopathy. Neck veins are flat. CARDIOVASCULAR: Examination reveals tachycardia. It is sinus. S1, S2 normal. No murmur. LUNGS: Reveal diffuse inspiratory and expiratory wheezes and rhonchi. She is not moving a lot air. There is slight prolongation on forced maneuver. ABDOMEN: Soft, but obese. EXTREMITIES: Are intact. No edema. SKIN: Without rash. NEUROLOGIC: Examination is brief but nonfocal. LABS: Labs are reviewed. Nothing new from today except a sugar of 126. The patient did have a chest x-ray yesterday. The chest x-ray shows nodular density in the left lower lobe area. This may be a new mass and/or patchy infiltrate. MEDICATIONS: Current medications are reviewed. She is on albuterol, Augmentin, Cepacol lozenges, Pulmicort 1 mg, Colace, iron, formoterol 20 mcg, subcu heparin, [place], Atarax, Motrin, insulin, Sporanox, lisinopril, loratadine, Maalox, magnesium oxide, Solu-Medrol, Singulair, Narcan, Zofran, Daliresp, which is a phosphodiesterase inhibitor, Requip, Restoril, trazodone and Yupelri, which is long-acting muscarinic antagonist. ASSESSMENT: 1. Acute exacerbation of chronic obstructive pulmonary disease in a patient with stage IV/chronic obstructive pulmonary disease, with an FEV1 that is 27% of predicted. 2. Chronic hypoxemic respiratory failure. 3. History of deep venous thrombosis. 4. Benign essential hypertension. 5. History of rheumatoid arthritis. 6. Restless legs syndrome. 7. History of right colectomy. 8. History of vulvar cancer, secondary to HPV. 9. 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 PLAN: We added Augmentin 875 twice a day. We switched the prednisone back to Solu-Medrol. I asked kindly that she remain on IV Solu-Medrol for the current time. She is on all other appropriate medications. I discontinued the short-acting muscarinic antagonist yesterday which would interfere with the long-acting muscarinic antagonist that she is on at home. No additional recommendations are made. She is listed for transplantation at [facility], although she is currently inactive given her recent admission. MMSHAKIRAL / TYEN: [id number] /
[2020-10-19 08:39] LABS: Basophils # (A) 0.2 k/uL (0-0.2); Basophils % (A) 1 %; Eosinophils % (A) 0 %; HCT 37.5 % (34.0-46.0); HGB 11.3 gm/dL (11.4-16.0); Hypochromasia Marked; Lymphocytes # (A) 1.3 k/uL (1.0-4.8); Lymphocytes % (A) 6 %; MCH 29.9 pg (25.0-35.0); MCHC 30.1 g/dL (31.0-37.0); MCV 99.3 fL (80.0-100.0); Macrocytosis Slight; Mean Platelet Volume 8.3; Monocytes # (A) 1.2 k/uL (0-1.0); Monocytes % (A) 6 %; Neutrophils # (A) 18.4 k/uL (1.3-7.7); Neutrophils % (A) 86 %; Platelet Count 336 k/uL (150-450); RBC 3.78 m/uL (3.80-5.40); RDW 14.8 % (11.5-15.5); WBC 21.3 k/uL (3.8-10.6)
[2020-10-19 08:42] LABS: African American GFR (CKD) >90 (>60 ml/min/1.73 sqM); Anion Gap -1 mmol/L; Blood Urea Nitrogen 45 mg/dL (7-17); Calcium 9.3 mg/dL (8.4-10.2); Carbon Dioxide 39 mmol/L (22-30); Chloride 103 mmol/L (98-107); Glucose 137 mg/dL (74-99); Non-African American GFR(CKD) >90 (>60 ml/min/1.73 sqM); Potassium 5.2 mmol/L (3.5-5.1); Sodium 141 mmol/L (137-145)
[2020-10-19] MEDS: AMOXIC-POT CLAV 875-125MG 1 EACH TAB PO SCH ×2 (08:43→20:07)
[2020-10-19 08:57] LABS: Large Platelets Present
[2020-10-19 08:58] LABS: Toxic Granulation Present
[2020-10-19] MEDS ORDERED: predniSONE 20 MG TAB PO SCH ×2 (09:00)
[2020-10-19] MEDS: hydrOXYzine HCL 10 MG TAB PO PRN (09:47)
[2020-10-19 12:25] LABS: Glucose,Whole Blood 117 mg/dL (75-99)
--- NOTE | 2020-10-19 13:15 | P.DS ---
Providers Date of admission: 10/16/20 12:25 Expected date of discharge: 10/19/20 Attending physician: Dionna Rene MD Consults: 10/15/20 19:57 Consult Physician Routine Consulting Provider: Jose Elias Goodman Consult Reason/Comments: COPD Do you want consulting provider notified?: Yes Primary care physician: [facility] Course: The patient is a 65-year-old female with a PMH of end-stage COPD on home oxygen presented to the emergency room due to shortness of breath. The patient notes that she was admitted to [facility] roughly a week ago and was dischar ged with a 7 day course of prednisone. She completed the course and noted that she continued to have shortness of breath along with wheezing despite using her inhalers as prescribed. Assessment and Plan Plan: Acute COPD exacerbation -DuoNeb's [id number] and when necessary, Pulmicort twice daily, formoterol twice daily -Solu-Medrol 60 mg IV every 6 hours since admission -COVID rapid PCR negative on presentation -Pulmonary consult, appreciate recommendation Severe COPD with chronic hypoxic respiratory failure on home O2 3 L -Patient is on the transplant list at [facility] -I discussed the patient condition with the consultant dietitian lung entry level project coordinator at [facility]. She in turn discussed with Dr. Moser who would like the patient to be transferred to [facility] Leukocytosis -Likely reactive from steroid use -No signs of active infection at this time Alkalosis -Likely compensatory with underlying hypercapnia Chronic conditions: Hypertension -Continue with home meds DVT prophylaxis -heparin subq Patient will be transferred to [facility] in a stable condition when bed is available Patient Condition at Discharge: Poor Plan - Discharge Summary Discharge Rx Participant: No New Discharge Prescriptions: No Action Multivit-Min/FA/Lycopen/Lutein [Centrum Silver Tablet] 1 tab PO DAILY Roflumilast [Daliresp] 500 mcg PO HS Yupelri 175mcg/3ml 175 mcg INHALATION DAILY@1800 rOPINIRole HCL [Requip] 0.5 mg PO HS Cholecalciferol [Vitamin D3 (25 Mcg = 1000 Iu)] 2,000 units PO DAILY Ipratropium-Albuterol Nebulize [Duoneb 0.5 mg-3 mg/3 ml Soln] 3 ml INHALATION RT-QID PRN PRN Reason: Shortness Of Breath Montelukast [Singulair] 10 mg PO HS #30 tab Magnesium Oxide [Mag-Ox] 200 mg PO HS Omeprazole Magnesium 20 mg PO DAILY Loratadine [Claritin] 10 mg PO DAILY traZODone HCL 75 mg PO HS Melatonin 3 mg PO HS diphenhydrAMINE HCL 12.5 mg PO HS Formoterol Fumarate [Perforomist] 20 mg INHALATION RT-BID Budesonide [Pulmicort] 0.5 mg INHALATION RT-BID Itraconazole [Sporanox] 100 mg PO BID Ferrous Sulfate [Iron] 325 mg PO MOWEFR predniSONE [Deltasone] 80 mg PO DAILY hydrOXYzine HCL [Atarax] 10 - 20 mg PO TID PRN PRN Reason: Anxiety Acetaminophen Tab [Tylenol Tab] 1,000 mg PO Q6HR PRN PRN Reason: Pain Or Fever > 100.5 Nasal [place] 1 spray EA NOSTRIL DAILY PRN PRN Reason: DRY NOSE Benazepril HCl 20 mg PO DAILY Discharge Medication List Multivit-Min/FA/Lycopen/Lutein [Centrum Silver Tablet] 1 tab PO DAILY 04/19/18 [History] Roflumilast [Daliresp] 500 mcg PO HS 10/09/19 [History] Yupelri 175mcg/3ml 175 mcg INHALATION DAILY@1800 10/09/19 [History] rOPINIRole HCL [Requip] 0.5 mg PO HS 03/24/20 [History] Cholecalciferol [Vitamin D3 (25 Mcg = 1000 Iu)] 2,000 units PO DAILY 04/08/20 [History] Ipratropium-Albuterol Nebulize [Duoneb 0.5 mg-3 mg/3 ml Soln] 3 ml INHALATION RT-QID PRN 04/18/20 [History] Montelukast [Singulair] 10 mg PO HS #30 tab 04/22/20 [Rx] Magnesium Oxide [Mag-Ox] 200 mg PO HS 09/15/20 [History] Omeprazole Magnesium 20 mg PO DAILY 09/16/20 [History] Budesonide [Pulmicort] 0.5 mg INHALATION RT-BID 10/11/20 [History] Ferrous Sulfate [Iron] 325 mg PO MOWEFR 10/11/20 [History] Formoterol Fumarate [Perforomist] 20 mg INHALATION RT-BID 10/11/20 [History] Itraconazole [Sporanox] 100 mg PO BID 10/11/20 [History] Loratadine [Claritin] 10 mg PO DAILY 10/11/20 [History] Melatonin 3 mg PO HS 10/11/20 [History] diphenhydrAMINE HCL 12.5 mg PO HS 10/11/20 [History] traZODone HCL 75 mg PO HS 10/11/20 [History] Acetaminophen Tab [Tylenol Tab] 1,000 mg PO Q6HR PRN 10/15/20 [History] Benazepril HCl 20 mg PO DAILY 10/15/20 [History] Nasal [place] 1 spray EA NOSTRIL DAILY PRN 10/15/20 [History] hydrOXYzine HCL [Atarax] 10 - 20 mg PO TID PRN 10/15/20 [History] predniSONE [Deltasone] 80 mg PO DAILY 10/15/20 [History] Follow up Appointment(s)/Referral(s): Gavin Riggs [Primary Care Provider] - 1-2 days
[2020-10-19 16:29] LABS: Glucose,Whole Blood 161 mg/dL (75-99)
[2020-10-19] MEDS: YUPELRI INHALATION SCH (19:32)
[2020-10-19 19:56] LABS: Glucose,Whole Blood 158 mg/dL (75-99)
[2020-10-19] MEDS: HYDROcodone/APAP 5-325MG 1 EACH TAB PO PRN (20:04)
[2020-10-19] MEDS: traZODone HCL 50 MG TAB PO SCH (20:05)
[2020-10-19] MEDS: MONTELUKAST 10 MG TAB PO SCH (20:06)
[2020-10-19] MEDS: MAGNESIUM OXIDE 400 MG TAB PO SCH (20:06)
[2020-10-19] MEDS: TEMAZEPAM 15 MG CAP PO PRN (20:13)
[2020-10-19 21:10] VITALS: BP 140/74; RESP 22; TEMP 97
[2020-10-19 23:45] VITALS: PULSE 112
[2020-10-20] MEDS: methylPREDNISolone SOD SUCCI 125 MG/2 ML VIAL IV SCH (00:07)
[2020-10-20] MEDS: HEPARIN SODIUM,PORCINE 5,000 UNIT/ML 1 ML VIAL SQ SCH (00:07)
== END 2020-10-20 03:01 | disposition home or self-care (01) | DRG 191 ==
LOC: EC 16:57 → 1SOBS 19:57 → OBSVTOIN 10-16 12:25
PROVIDERS: ADMIT Internal Medicine; ATTEND Internal Medicine
DX: J44.1 Chronic obstructive pulmonary disease with (acute) exacerbation (principal); J96.11 Chronic respiratory failure with hypoxia; E87.3 Alkalosis; E87.2 Acidosis; E24.2 Drug-induced Cushing's syndrome; M06.9 Rheumatoid arthritis, unspecified; Z20.828 Contact with and (suspected) exposure to other viral communicable diseases; D72.829 Elevated white blood cell count, unspecified; E66.9 Obesity, unspecified; F41.9 Anxiety disorder, unspecified; F90.9 Attention-deficit hyperactivity disorder, unspecified type; G25.81 Restless legs syndrome; I10 Essential (primary) hypertension; M85.80 Other specified disorders of bone density and structure, unspecified site; G89.29 Other chronic pain; H91.90 Unspecified hearing loss, unspecified ear; M54.9 Dorsalgia, unspecified; T38.0X5A Adverse effect of glucocorticoids and synthetic analogues, initial encounter; Z76.82 Awaiting organ transplant status; Z79.899 Other long term (current) drug therapy; Z85.038 Personal history of other malignant neoplasm of large intestine; Z85.44 Personal history of malignant neoplasm of other female genital organs; Z86.718 Personal history of other venous thrombosis and embolism; Z87.891 Personal history of nicotine dependence; Z99.81 Dependence on supplemental oxygen; Z68.31 Body mass index [BMI] 31.0-31.9, adult; Z96.651 Presence of right artificial knee joint; Z90.721 Acquired absence of ovaries, unilateral; Z90.710 Acquired absence of both cervix and uterus; Z90.49 Acquired absence of other specified parts of digestive tract; Z87.01 Personal history of pneumonia (recurrent); Z86.19 Personal history of other infectious and parasitic diseases; Z88.5 Allergy status to narcotic agent; Z88.8 Allergy status to other drugs, medicaments and biological substances; Z91.048 Other nonmedicinal substance allergy status; Z98.890 Other specified postprocedural states; Z80.0 Family history of malignant neoplasm of digestive organs; Z80.49 Family history of malignant neoplasm of other genital organs; Z82.5 Family history of asthma and other chronic lower respiratory diseases
CPT/HCPCS: 36415; 71045; 80048; 80053; 83605; 83880; 84484; 85025; 85027; 85379; 85610; 85730; 87635; 93005; 94640; 96361; 96374; 99285

== ENCOUNTER 2020-11-02 14:46 | Inpatient (IN) | payer MEDICARE, OTHER ==
[2020-11-02] MEDS ORDERED: ALBUTEROL HFA INHALER INHALATION PRN (15:19)
[2020-11-02] MEDS ORDERED: ALBUTEROL HFA INHALER INHALATION STA (15:19)
[2020-11-02] MEDS ORDERED: ACETAMINOPHEN TAB 500 MG TAB PO STA (15:19)
--- NOTE | 2020-11-02 15:26 | ED ---
General Adult HPI - General Chief complaint: Shortness of Breath Stated complaint: SOB Time Seen by Provider: 11/02/20 15:05 Source: patient, RN notes reviewed Mode of arrival: wheelchair Limitations: no limitations - History of Present Illness Initial comments: Patient is a pleasant 65-year-old female presenting to the emergency Department with complaints of difficulty in breathing. Onset of symptoms was a past few days. Patient has minimal dry cough. Patient does have history of similar symptoms previously associated with COPD. No leg pain or leg swelling. Patient was at a different hospital a week or so ago. Patient has been on steroids. No fevers at home. - Related Data Home Medications Medication Instructions Recorded Confirmed Multivit-Min/FA/Lycopen/Lutein 1 tab PO DAILY 04/19/18 11/02/20 [Centrum Silver Tablet] Roflumilast [Daliresp] 500 mcg PO HS 10/09/19 11/02/20 Yupelri 175mcg/3ml 175 mcg INHALATION DAILY@1800 10/09/19 11/02/20 rOPINIRole HCL [Requip] 0.5 mg PO HS 03/24/20 11/02/20 Cholecalciferol [Vitamin D3 (25 2,000 units PO DAILY 04/08/20 11/02/20 Mcg = 1000 Iu)] Ipratropium-Albuterol Nebulize 3 ml INHALATION RT-QID PRN 04/18/20 11/02/20 [Duoneb 0.5 mg-3 mg/3 ml Soln] Magnesium Oxide [Mag-Ox] 200 mg PO HS 09/15/20 11/02/20 Omeprazole Magnesium 20 mg PO DAILY 09/16/20 11/02/20 Budesonide [Pulmicort] 0.5 mg INHALATION RT-BID 10/11/20 11/02/20 Formoterol Fumarate [Perforomist] 20 mg INHALATION RT-BID 10/11/20 11/02/20 Loratadine [Claritin] 10 mg PO DAILY 10/11/20 11/02/20 Melatonin 3 mg PO HS 10/11/20 11/02/20 traZODone HCL 150 mg PO HS 10/11/20 11/02/20 Acetaminophen Tab [Tylenol Tab] 500 mg PO Q6HR PRN 10/15/20 11/02/20 Benzocaine/Menthol Lozeng [Cepacol 1 lozenge PO QID PRN 11/02/20 11/02/20 lozenge] Sulfamethox-Tmp 800-160Mg [Bactrim 1 tab PO TID 11/02/20 11/02/20 DS 800-160 mg] predniSONE See Taper PO DAILY 11/02/20 11/02/20 Previous Rx's Medication Instructions Recorded Montelukast [Singulair] 10 mg PO HS #30 tab 04/22/20 Allergies Allergy/AdvReac Type Severity Reaction Status Date / Time infliximab [From Remicade] Allergy Dyspnea/HIV Verified 10/15/20 18:17 ES propoxyphene [From Darvon] Allergy Rash/Hives Verified 10/15/20 18:17 adhesive tape AdvReac "is hard Verified 10/15/20 18:17 on skin" Review of Systems ROS Statement: Those systems with pertinent positive or pertinent negative responses have been documented in the HPI. ROS Other: All systems not noted in ROS Statement are negative. Constitutional: Denies: fever, chills Eyes: Denies: eye pain ENT: Denies: ear pain Respiratory: Reports: as per HPI, dyspnea Cardiovascular: Denies: chest pain Endocrine: Reports: fatigue Gastrointestinal: Denies: abdominal pain Genitourinary: Denies: urgency Skin: Denies: rash Neurological: Denies: weakness Past Medical History Past Medical History: Cancer, COPD, Deep Vein Thrombosis (DVT), Hypertension, Pneumonia, Rheumatoid Arthritis (RA) Additional Past Medical History / Comment(s): hearing difficulty currently, colitis, osteopenia, hx cancer of appendix, uses oxygen 2L continuous, waiting for lung transplant due to COPD. chronic back pain, restless leg, recent admission for exacerbation of COPD. 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 Colonoscopy 2017. pain procedure at [facility] with Dr Ty. [facility] with unilateral oophorectomy . Partial vulvectomy in 2000. Past Anesthesia/Blood Transfusion Reactions: No Reported Reaction Additional Past Anesthesia/Blood Transfusion Reaction / Comment(s): states is not supposed to have general anesthesia R/T awaiting lung transplant Past Psychological History: ADD/ADHD, Anxiety Smoking Status: Former smoker Past Alcohol Use History: None Reported Past Drug Use History: None Reported - Past Family History Father Family Medical History: Cancer, COPD Additional Family Medical History / Comment(s): COLON cancer Mother Family Medical History: Cancer Additional Family Medical History / Comment(s): ESOPHAGUS cancer Sister(s) Family Medical History: Cancer Additional Family Medical History / Comment(s): CERVICAL cancer General Exam Limitations: no limitations General appearance: alert, in no apparent distress Head exam: Present: normocephalic Eye exam: Present: normal appearance, PERRL Neck exam: Present: normal inspection Respiratory exam: Present: wheezes, decreased breath sounds Cardiovascular Exam: Present: tachycardia GI/Abdominal exam: Present: soft. Absent: tenderness Extremities exam: Present: normal inspection. Absent: pedal edema, calf tenderness Neurological exam: Present: alert Psychiatric exam: Present: normal affect, normal mood Skin exam: Present: normal color Course Vital Signs 11/02/20 14:48 Temperature 99.0 F Pulse Rate 108 H Respiratory 22 Rate Blood Pressure 145/85 O2 Sat by Pulse 96 Oximetry - Reevaluation(s) Reevaluation #1: 11/02/20 18:14 Possible pneumonia on chest x-ray. There is concern for possible sepsis diagnosed at 1810. Blood culture and lactic acid have been ordered. IV antibiotics will be ordered. EKG Findings - EKG Comments: EKG Findings:: Normal sinus rhythm and 99. CT 116. QRS 58. QT 342. QTC 4:30. Normal axis. Normal QRS. Nonspecific ST-T. Medical Decision Making - Medical Decision Making Patient reevaluated without much change. Patient updated on results and plan. Case was discussed with Dr. Rodarte,, covering with Dr. Hoskisn, who will admit. - Lab Data Result diagrams: 11/02/20 15:46 11/02/20 15:46 Lab Results 11/02/20 11/02/20 11/02/20 Range/Units 15:46 15:46 15:46 WBC 20.3 H (3.8-10.6) k/uL RBC 3.34 L (3.80-5.40) m/uL Hgb 10.1 L (11.4-16.0) gm/dL Hct 31.0 L (34.0-46.0) % MCV 93.0 D (80.0-100.0) fL MCH 30.4 (25.0-35.0) pg MCHC 32.7 (31.0-37.0) g/dL RDW 16.5 H (11.5-15.5) % Plt Count 223 (150-450) k/uL MPV 8.5 Neutrophils % 95 % Lymphocytes % 2 % Monocytes % 2 % Eosinophils % 0 % Basophils % 0 % Neutrophils # 19.3 H (1.3-7.7) k/uL Lymphocytes # 0.4 L (1.0-4.8) k/uL Monocytes # 0.4 (0-1.0) k/uL Eosinophils # 0.1 (0-0.7) k/uL Basophils # 0.0 (0-0.2) k/uL Hypochromasia Slight Anisocytosis Slight PT 9.3 (9.0-12.0) sec INR 0.8 (<1.2) APTT 20.1 L (22.0-30.0) sec Sodium 134 L (137-145) mmol/L Potassium 5.0 (3.5-5.1) mmol/L Chloride 101 (98-107) mmol/L Carbon Dioxide 30 (22-30) mmol/L Anion Gap 3 mmol/L BUN 17 (7-17) mg/dL Creatinine 0.95 (0.52-1.04) mg/dL Est GFR (CKD-EPI)AfAm 72 (>60 ml/min/1.73 sqM) Est GFR (CKD-EPI)NonAf 63 (>60 ml/min/1.73 sqM) Glucose 138 H (74-99) mg/dL Plasma Lactic Acid Osmani (0.7-2.0) mmol/L Calcium 8.9 (8.4-10.2) mg/dL Magnesium 2.0 (1.6-2.3) mg/dL Total Bilirubin 0.5 (0.2-1.3) mg/dL AST 20 (14-36) U/L ALT 26 (4-34) U/L Alkaline Phosphatase 62 (38-126) U/L Lactate Dehydrogenase 611 (313-618) U/L C-Reactive Protein 76.2 H (<10.0) mg/L Total Protein 6.3 (6.3-8.2) g/dL Albumin 3.7 (3.5-5.0) g/dL Coronavirus (PCR) (Not Detectd) 11/02/20 11/02/20 Range/Units 15:46 15:46 WBC (3.8-10.6) k/uL RBC (3.80-5.40) m/uL Hgb (11.4-16.0) gm/dL Hct (34.0-46.0) % MCV (80.0-100.0) fL MCH (25.0-35.0) pg MCHC (31.0-37.0) g/dL RDW (11.5-15.5) % Plt Count (150-450) k/uL MPV Neutrophils % % Lymphocytes % % Monocytes % % Eosinophils % % Basophils % % Neutrophils # (1.3-7.7) k/uL Lymphocytes # (1.0-4.8) k/uL Monocytes # (0-1.0) k/uL Eosinophils # (0-0.7) k/uL Basophils # (0-0.2) k/uL Hypochromasia Anisocytosis PT (9.0-12.0) sec INR (<1.2) APTT (22.0-30.0) sec Sodium (137-145) mmol/L Potassium (3.5-5.1) mmol/L Chloride (98-107) mmol/L Carbon Dioxide (22-30) mmol/L Anion Gap mmol/L BUN (7-17) mg/dL Creatinine (0.52-1.04) mg/dL Est GFR (CKD-EPI)AfAm (>60 ml/min/1.73 sqM) Est GFR (CKD-EPI)NonAf (>60 ml/min/1.73 sqM) Glucose (74-99) mg/dL Plasma Lactic Acid Osmani 1.0 (0.7-2.0) mmol/L Calcium (8.4-10.2) mg/dL Magnesium (1.6-2.3) mg/dL Total Bilirubin (0.2-1.3) mg/dL AST (14-36) U/L ALT (4-34) U/L Alkaline Phosphatase (38-126) U/L Lactate Dehydrogenase (313-618) U/L C-Reactive Protein (<10.0) mg/L Total Protein (6.3-8.2) g/dL Albumin (3.5-5.0) g/dL Coronavirus (PCR) Not Detected (Not Detectd) - Radiology Data Radiology results: image reviewed (Chest x-ray does show some increased interstitial markings of the lower lobes) Critical Care Time Critical Care Time: Yes Total Critical Care Time: 31 Disposition Clinical Impression: COPD with acute exacerbation, Sepsis Disposition: ADMITTED IP TO THIS HOSP Is patient prescribed a controlled substance at d/c from ED?: No Referrals: Gavin Riggs [Primary Care Provider] - 1-2 days Decision Time: 18:14
[2020-11-02 16:10] LABS: Anisocytosis Slight; Basophils % (A) 0 %; Eosinophils # (A) 0.1 k/uL (0-0.7); Eosinophils % (A) 0 %; HGB 10.1 gm/dL (11.4-16.0); Hypochromasia Slight; Lymphocytes # (A) 0.4 k/uL (1.0-4.8); Lymphocytes % (A) 2 %; MCH 30.4 pg (25.0-35.0); MCHC 32.7 g/dL (31.0-37.0); Mean Platelet Volume 8.5; Monocytes # (A) 0.4 k/uL (0-1.0); Monocytes % (A) 2 %; Neutrophils # (A) 19.3 k/uL (1.3-7.7); Neutrophils % (A) 95 %; Platelet Count 223 k/uL (150-450); RBC 3.34 m/uL (3.80-5.40); RDW 16.5 % (11.5-15.5); WBC 20.3 k/uL (3.8-10.6)
--- NOTE | 2020-11-02 16:15 | XR ---
EXAMINATION TYPE: XR chest 1V portable DATE OF EXAM: 11/02/2020 Comparison: 10/18/2020 Clinical History: 65-year-old female cough and shortness of breath, Suspected COVID-19 pneumonia Findings: Heart upper limits of normal in size. Subtle increased interstitial densities in the lower lungs. No solomon consolidation or pleural effusion. Atherosclerotic arch calcifications. Impression: Subtle increased interstitial densities in the lower lungs could reflect early atypical pneumonia. Fo llow-up can be performed. No solomon consolidation at this time.
[2020-11-02 16:23] LABS: Albumin 3.7 g/dL (3.5-5.0); C Reactive Protein 76.2 mg/L (<10.0); Calcium 8.9 mg/dL (8.4-10.2); Total Bilirubin 0.5 mg/dL (0.2-1.3); Total Protein 6.3 g/dL (6.3-8.2)
[2020-11-02 16:44] LABS: INR 0.8 (<1.2); Partial Thromboplastin Time 20.1 sec (22.0-30.0); Prothrombin Time 9.3 sec (9.0-12.0)
[2020-11-02] MEDS ORDERED: IPRATROPIUM-ALBUTEROL 3 ML NEB INHALATION STA (18:13)
[2020-11-02] MEDS ORDERED: SODIUM CHLORIDE 0.9% 1,000 ML IV SCH (18:15)
[2020-11-02] MEDS ORDERED: AZITHROMYCIN 500 MG in SODIUM CHLORIDE 0.9% 250 ML IVPB STA (18:15)
[2020-11-02] MEDS ORDERED: PNEUMONIA PROTOCOL UTILIZED 1 EACH MISC PO PRN (18:15)
[2020-11-02] MEDS ORDERED: methylPREDNISolone SOD SUCCI 125 MG/2 ML VIAL IV ONE (18:30)
[2020-11-02] MEDS: IPRATROPIUM-ALBUTEROL 3 ML NEB INHALATION SCH (19:11)
[2020-11-02] MEDS: LIDOCAINE 5% PATCH TOPICAL SCH (19:45)
[2020-11-02] MEDS ORDERED: ALBUTEROL HFA INHALER INHALATION SCH (20:00)
[2020-11-02] MEDS: MELATONIN 3 MG TABLET PO SCH (22:12)
--- NOTE | 2020-11-02 22:52 | P.HPIM ---
History of Present Illness H&P Date: 11/02/20 Patient is a 65-year-old female with a PMH of end-stage COPD with chronic hypoxic respiratory failure on continuous home oxygen, (on lung transplant list at [facility]) and hypertension who presents to the emergency room with complaints of shortness of breath. The patient reports that her breathing had been gradually worsening over the past few days, and she went to see her primary earlier today who advised her to go to the emergency room. Patient reports chronic cough productive of greenish phlegm, unchanged. Reports occasional subjective fevers. Denied chest discomfort, nausea, vomiting, palpitations, abdominal pain, lower extremity pain or swelling. Of note, the patient was recently admitted to [facility] for similar complaints on 10/15, and after a three-day hospital stay, was transferred to [facility]. The patient reports a few additional days stay at [facility] after which she was discharged to home. Following current presentation, the emergency room physician attempted to transfer the patient to [facility] though after multiple hours on the phone, were unable to do so. Chest x-ray in the emergency room revealed increased interstitial densities in the lower lungs suspicious for atypical pneumonia, with EKG showing normal sinus rhythm at 99 bpm. Laboratory evaluation was remarkable for a leukocytosis of 20.3, hemoglobin 10.1, sodium 134, glucose 138, and coronavirus rapid testing negative. Review of Systems Pertinent positives and negatives as discussed in HPI, a complete review of systems was performed and all other systems are negative. Past Medical History Past Medical History: Cancer, COPD, Deep Vein Thrombosis (DVT), Hypertension, Pneumonia, Rheumatoid Arthritis (RA) Additional Past Medical History / Comment(s): hearing difficulty currently, colitis, osteopenia, hx cancer of appendix, uses oxygen 2L continuous, waiting for lung transplant due to COPD. chronic back pain, restless leg, recent admission for exacerbation of COPD. 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 Colonoscopy 2016. pain procedure at [facility] with Dr Ty. TAD with unilateral oophorectomy 1983. Partial vulvectomy in 2000. Past Anesthesia/Blood Transfusion Reactions: No Reported Reaction Additional Past Anesthesia/Blood Transfusion Reaction / Comment(s): states is not supposed to have general anesthesia R/T awaiting lung transplant Past Psychological History: ADD/ADHD, Anxiety Smoking Status: Former smoker Past Alcohol Use History: None Reported Past Drug Use History: None Reported - Past Family History Father Family Medical History: Cancer, COPD Additional Family Medical History / Comment(s): COLON cancer Mother Family Medical History: Cancer Additional Family Medical History / Comment(s): ESOPHAGUS cancer Sister(s) Family Medical History: Cancer Additional Family Medical History / Comment(s): CERVICAL cancer Medications and Allergies Home Medications Medication Instructions Recorded Confirmed Type Multivit-Min/FA/Lycopen/Lutein 1 tab PO DAILY 04/19/18 11/02/20 History [Centrum Silver Tablet] Roflumilast [Daliresp] 500 mcg PO HS 10/09/19 11/02/20 History Yupelri 175mcg/3ml 175 mcg INHALATION DAILY@1800 10/09/19 11/02/20 History rOPINIRole HCL [Requip] 0.5 mg PO HS 03/24/20 11/02/20 History Cholecalciferol [Vitamin D3 (25 2,000 units PO DAILY 04/08/20 11/02/20 History Mcg = 1000 Iu)] Ipratropium-Albuterol Nebulize 3 ml INHALATION RT-QID PRN 04/18/20 11/02/20 History [Duoneb 0.5 mg-3 mg/3 ml Soln] Montelukast [Singulair] 10 mg PO HS #30 tab 04/22/20 11/02/20 Rx Magnesium Oxide [Mag-Ox] 200 mg PO HS 09/15/20 11/02/20 History Omeprazole Magnesium 20 mg PO DAILY 09/16/20 11/02/20 History Budesonide [Pulmicort] 0.5 mg INHALATION RT-BID 10/11/20 11/02/20 History Formoterol Fumarate [Perforomist] 20 mg INHALATION RT-BID 10/11/20 11/02/20 History Loratadine [Claritin] 10 mg PO DAILY 10/11/20 11/02/20 History Melatonin 3 mg PO HS 10/11/20 11/02/20 History traZODone HCL 150 mg PO HS 10/11/20 11/02/20 History Acetaminophen Tab [Tylenol Tab] 500 mg PO Q6HR PRN 10/15/20 11/02/20 History Benzocaine/Menthol Lozeng [Cepacol 1 lozenge PO QID PRN 11/02/20 11/02/20 History lozenge] Sulfamethox-Tmp 800-160Mg [Bactrim 1 tab PO TID 11/02/20 11/02/20 History DS 800-160 mg] predniSONE See Taper PO DAILY 11/02/20 11/02/20 History Allergies Allergy/AdvReac Type Severity Reaction Status Date / Time infliximab [From Remicade] Allergy Dyspnea/HIV Verified 10/15/20 18:17 ES propoxyphene [From Darvon] Allergy Rash/Hives Verified 10/15/20 18:17 adhesive tape AdvReac "is hard Verified 10/15/20 18:17 on skin" Physical Exam Vitals: Vital Signs Temp Pulse Resp BP Pulse Ox 11/02/20 22:09 95 20 143/64 94 L 11/02/20 22:00 82 20 11/02/20 21:00 92 18 11/02/20 20:00 92 18 11/02/20 19:20 92 11/02/20 19:13 90 11/02/20 18:00 98.0 F 90 18 107/84 97 11/02/20 14:48 99.0 F 108 H 22 145/85 96 Intake and Output 11/02/20 11/02/20 11/02/20 06:59 14:59 22:59 Other: Weight 76.204 kg General: Chronically ill-appearing female in mild respiratory distress, appears at stated age, obese Derm: no unusual rashes/lesions no unusual ecchymoses, warm, dry Head: atraumatic, normocephalic, symmetric Eyes: EOMI, no lid lag, anicteric sclera, pupils equal round reactive to light ENT: Nose and ears atraumatic, no thrush, no pharyngeal erythema Neck: No thyromegaly, no cervical lymphadenopathy, trachea midline, supple Mouth: no lip lesion, mucus membranes moist Cardiovascular: S1S2 reg, no murmur, positive posterior tibial pulse bilateral, trace bilateral lower extremity pitting edema R>L with R calf tenderness, capillary refill less than 2 seconds Lungs: Poor air entry bilaterally with diffuse wheezing and bibasilar rhonchi, no accessory muscle use Abdominal: soft, nontender to palpation, no guarding, no appreciable organomegaly, normal bowel sounds Ext: no gross muscle atrophy, muscle strength 5 out of 5 in all 4 extremities grossly, no contractures, Neuro: CN II-XI grossly intact, light touch intact all 4 extremities, finger to nose within normal limits, Psych: Alert, oriented, appropriate affect Results CBC & Chem 7: 11/02/20 15:46 11/02/20 15:46 Labs: Abnormal Lab Results - Last 24 Hours (Table) 11/02/20 11/02/20 11/02/20 Range/Units 15:46 15:46 15:46 WBC 20.3 H (3.8-10.6) k/uL RBC 3.34 L (3.80-5.40) m/uL Hgb 10.1 L (11.4-16.0) gm/dL Hct 31.0 L (34.0-46.0) % RDW 16.5 H (11.5-15.5) % Neutrophils # 19.3 H (1.3-7.7) k/uL Lymphocytes # 0.4 L (1.0-4.8) k/uL APTT 20.1 L (22.0-30.0) sec Sodium 134 L (137-145) mmol/L Glucose 138 H (74-99) mg/dL C-Reactive Protein 76.2 H (<10.0) mg/L Assessment and Plan Plan: Acute COPD exacerbation -Continue with Solu-Medrol and DuoNeb's -Pulmonary consult -Supplemental oxygen -Supplemental insulin scale Possible atypical pneumonia -Continue with azithromycin for now -Hold off on ceftriaxone Hypertension -Continue with home meds Obstructive sleep apnea -Continue with home CPAP therapy, patient has the machine at the bedside DVT prophylaxis -Heparin subq The patient is admitted with an anticipated greater than 2 midnight stay for evaluation of COPD exacer. CODE STATUS:Full Code Discussed with: Patient Anticipated discharge date: 2-[address]: home A total of 35 minutes was spent on the care of this complex patient more than 50% of the time was spent in counseling and care coordination.
[2020-11-02] MEDS: IPRATROPIUM-ALBUTEROL 3 ML NEB INHALATION PRN (23:18)
[2020-11-03] MEDS ORDERED: HEPARIN SODIUM,PORCINE 5,000 UNIT/ML 1 ML VIAL SQ SCH
[2020-11-03] MEDS: methylPREDNISolone SOD SUCCI 125 MG/2 ML VIAL IV SCH ×5 (00:22→23:39)
--- NOTE | 2020-11-03 01:30 | US ---
EXAM: US Duplex Bilateral Lower Extremities Veins CLINICAL HISTORY: Bruised/swollen leg. Patient poor historian. Hx right knee replacement. Bruised and swollen leg per order. Right foot bruising. TECHNIQUE: The lower extremity deep venous system is examined utilizing real time linear array sonography with graded compression, doppler sonography and color-flow sonography. COMPARISON: No relevant prior studies available. FINDINGS: Right Leg: There appear to be internal echoes and color defect by valve in prox femoral vein. This vein does appear to compress suggests non- occlusive thrombus. All other vein segments appear to compress and show color flow. Left Leg: No evidence of DVT in veins imaged at this time from prox calf veins to CFV/GSV. IMPRESSION: non-occlusive deep venous thrombosis in proximal right femoral vein. <MYCVCSECTION> Communications: 11/03/20 01:41 Verify Receipt Verified receipt with Alexander Galvan on 11/03 01:42 (-05:00)
[2020-11-03] MEDS ORDERED: HEPARIN SODIUM,PORCINE 5,000 UNIT/ML 1 ML VIAL IV PRN (01:47)
[2020-11-03] MEDS ORDERED: HEPARIN SODIUM,PORCINE 10,000 UNIT/ML 1 ML VIAL IV ONE (01:47)
[2020-11-03 02:05] LABS: Ferritin 42.6 ng/mL (10.0-291.0)
[2020-11-03] MEDS: HEPARIN SOD,PORK IN 0.45% NACL 25,000 UNIT in 0.45% NACL 1 250ML.BAG IV SCH ×2 (02:05→21:23)
[2020-11-03] MEDS: IPRATROPIUM-ALBUTEROL 3 ML NEB INHALATION SCH ×4 (06:58→19:20)
[2020-11-03 07:06] LABS: Glucose,Whole Blood 141 mg/dL (75-99)
[2020-11-03] MEDS: INSULIN ASPART (NovoLOG) 100 UNIT/ML VIAL SQ SCH ×4 (07:33→20:53)
--- NOTE | 2020-11-03 07:59 | XR ---
EXAMINATION TYPE: XR chest 2V DATE OF EXAM: 11/03/2020 COMPARISON: 11/02/2020 INDICATION: Pneumonia TECHNIQUE: Frontal and lateral views of the chest are obtained. FINDINGS: The heart size is normal. The pulmonary vasculature is normal. Bibasilar infiltrates are present.. IMPRESSION: 1. Bibasilar infiltrates, increasing from comparison
[2020-11-03] MEDS ORDERED: VANCOMYCIN IV PER PHARMACY 1 EACH MISC MISCELLANE PRN (10:37)
--- NOTE | 2020-11-03 10:42 | P.PN ---
Subjective Progress Note Date: 11/03/20 Principal diagnosis: Shortness of breath Bruising was noted on the right foot last night and due to that patient had a right lower extremity Doppler which came back positive for DVT. Patient continues to have shortness of breath and wheezing. Objective - Vital Signs Vital signs: Vital Signs Temp 98.1 F 11/03/20 08:00 Pulse 91 11/03/20 08:00 Resp 20 11/03/20 08:00 BP 123/69 11/03/20 08:00 Pulse Ox 98 11/03/20 08:00 Intake & Output 11/02/20 11/03/20 11/03/20 18:59 06:59 18:59 Intake Total 99.736 Balance 99.736 Weight 76.204 kg 73.4 kg Intake: Intake, IV Titration 99.736 Amount Heparin Sod,Pork in 0.45% 99.736 NaCl 25,000 unit In 0.45 % NaCl 1 250ml.bag @ 18 UNITS/KG/HR 13.717 mls/hr IV .[id number] [facility] Rx#: [id number] Other: Voiding Method Toilet # Voids 2 - Exam General: Chronically ill-appearing female in mild respiratory distress, appears at stated age, obese Derm: no unusual rashes/lesions no unusual ecchymoses, warm, dry Head: atraumatic, normocephalic, symmetric Eyes: EOMI, no lid lag, anicteric sclera, pupils equal round reactive to light ENT: Nose and ears atraumatic, no thrush, no pharyngeal erythema Neck: No thyromegaly, no cervical lymphadenopathy, trachea midline, supple Mouth: no lip lesion, mucus membranes moist Cardiovascular: S1S2 reg, no murmur, positive posterior tibial pulse bilateral, trace bilateral lower extremity pitting edema R>L with R calf tenderness, capillary refill less than 2 seconds Lungs: Poor air entry bilaterally with diffuse wheezing and bibasilar rhonchi, no accessory muscle use Abdominal: soft, nontender to palpation, no guarding, no appreciable organomegaly, normal bowel sounds Ext: no gross muscle atrophy, muscle strength 5 out of 5 in all 4 extremities grossly, no contractures, Neuro: CN II-XI grossly intact, light touch intact all 4 extremities, finger to nose within normal limits, Psych: Alert, oriented, appropriate affect - Labs CBC & Chem 7: 11/02/20 15:46 11/02/20 15:46 Labs: Abnormal Lab Results - Last 24 Hours (Table) 11/02/20 11/02/20 11/02/20 Range/Units 15:46 15:46 15:46 WBC 20.3 H (3.8-10.6) k/uL RBC 3.34 L (3.80-5.40) m/uL Hgb 10.1 L (11.4-16.0) gm/dL Hct 31.0 L (34.0-46.0) % RDW 16.5 H (11.5-15.5) % Neutrophils # 19.3 H (1.3-7.7) k/uL Lymphocytes # 0.4 L (1.0-4.8) k/uL APTT 20.1 L (22.0-30.0) sec Sodium 134 L (137-145) mmol/L Glucose 138 H (74-99) mg/dL POC Glucose (mg/dL) (75-99) mg/dL C-Reactive Protein 76.2 H (<10.0) mg/L Procalcitonin (0.02-0.09) ng/mL 11/02/20 11/03/20 11/03/20 Range/Units 15:46 07:04 07:37 WBC (3.8-10.6) k/uL RBC (3.80-5.40) m/uL Hgb (11.4-16.0) gm/dL Hct (34.0-46.0) % RDW (11.5-15.5) % Neutrophils # (1.3-7.7) k/uL Lymphocytes # (1.0-4.8) k/uL APTT 113.8 H* (22.0-30.0) sec Sodium (137-145) mmol/L Glucose (74-99) mg/dL POC Glucose (mg/dL) 141 H (75-99) mg/dL C-Reactive Protein (<10.0) mg/L Procalcitonin 0.10 H (0.02-0.09) ng/mL Assessment and Plan Plan: Acute COPD exacerbation Healthcare associated pneumonia -Continue with Solu-Medrol and DuoNeb's -Add Zosyn and vancomycin, keep azithromycin for atypicals coverage, check MRSA nasal screen -Pulmonary consult -Supplemental oxygen -Supplemental insulin scale Acute right lower extremity DVT Provoked likely sec to recent illness and hospitalization Heparin drip Switch to oral anticoagulant tomorrow if stable. Hypertension -Continue with home meds Obstructive sleep apnea -Continue with home CPAP therapy, patient has the machine at the bedside Anticipated discharge date: 2-[address]: home A total of 35 minutes was spent on the care of this complex patient more than 50% of the time was spent in counseling and care coordination.
[2020-11-03 11:50] LABS: Glucose,Whole Blood 148 mg/dL (75-99)
[2020-11-03] MEDS: PIPERACILLIN-TAZOBACTAM 3.375 GM in SODIUM CHLORIDE 0.9% 100 ML IVPB SCH ×2 (12:17→20:53)
--- NOTE | 2020-11-03 14:16 | P.CNPUL ---
History of Present Illness Consult date: 11/03/20 Requesting physician: Dionna Rene Reason for consult: COPD Chief complaint: Shortness of breath History of present illness: This is a 65-year-old white female with history of severe COPD, FEV1 is 27%, patient is O2 dependent, frequently on prednisone for recurrent episodes of COPD exacerbation, patient was recently at [facility] for symptoms of COPD exacerbation and was treated with prednisone again, patient is frequently in the hospital with symptoms of COPD exacerbation, including cough, wheezing, shortness of breath, cough is often productive with whitish phlegm, no fever no chills no hemoptysis. Patient is supposedly on the lung transplant list at [facility], patient was last at [facility] on October 15, and she was transferred at that time to [facility], back again with similar symptoms. Again mostly symptoms of acute exacerbation of COPD. Chest x-ray showed bibasilar atelectasis, doubt infiltrates. Patient was readmitted this time, and I was asked to see her on consultation Review of Systems Constitutional: Denies chills, Denies fever Eyes: denies blurred vision, denies pain Ears, nose, mouth and throat: Denies headache, Denies sore throat Cardiovascular: Denies chest pain, Denies shortness of breath Respiratory: As noted in HPI. Gastrointestinal: Denies abdominal pain, Denies diarrhea, Denies nausea, Denies vomiting Genitourinary: Denies dysuria, Denies hematuria Musculoskeletal: Denies myalgias Integumentary: Denies pruritus, Denies rash Neurological: Denies numbness, Denies weakness Psychiatric: Denies anxiety, Denies depression Endocrine: Denies fatigue, Denies weight change Past Medical History Past Medical History: Cancer, COPD, Deep Vein Thrombosis (DVT), Hypertension, Pneumonia, Rheumatoid Arthritis (RA) Additional Past Medical History / Comment(s): hearing difficulty currently, colitis, osteopenia, hx cancer of appendix, uses oxygen 2L continuous, waiting for lung transplant due to COPD. chronic back pain, restless leg, recent admission for exacerbation of COPD. 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 Colonoscopy 2017. pain procedure at [facility] with Dr Ty. TAD with unilateral oophorectomy 1983. Partial vulvectomy in 2000. Past Anesthesia/Blood Transfusion Reactions: No Reported Reaction Additional Past Anesthesia/Blood Transfusion Reaction / Comment(s): states is not supposed to have general anesthesia R/T awaiting lung transplant Past Psychological History: ADD/ADHD, Anxiety Smoking Status: Former smoker Past Alcohol Use History: None Reported Past Drug Use History: None Reported - Past Family History Father Family Medical History: Cancer, COPD Additional Family Medical History / Comment(s): COLON cancer Mother Family Medical History: Cancer Additional Family Medical History / Comment(s): ESOPHAGUS cancer Sister(s) Family Medical History: Cancer Additional Family Medical History / Comment(s): CERVICAL cancer Medications and Allergies Home Medications Medication Instructions Recorded Confirmed Type Multivit-Min/FA/Lycopen/Lutein 1 tab PO DAILY 04/19/18 11/02/20 History [Centrum Silver Tablet] Roflumilast [Daliresp] 500 mcg PO HS 10/09/19 11/02/20 History Yupelri 175mcg/3ml 175 mcg INHALATION DAILY@1800 10/09/19 11/02/20 History rOPINIRole HCL [Requip] 0.5 mg PO HS 03/24/20 11/02/20 History Cholecalciferol [Vitamin D3 (25 2,000 units PO DAILY 04/08/20 11/02/20 History Mcg = 1000 Iu)] Ipratropium-Albuterol Nebulize 3 ml INHALATION RT-QID PRN 04/18/20 11/02/20 History [Duoneb 0.5 mg-3 mg/3 ml Soln] Montelukast [Singulair] 10 mg PO HS #30 tab 04/22/20 11/02/20 Rx Magnesium Oxide [Mag-Ox] 200 mg PO HS 09/15/20 11/02/20 History Omeprazole Magnesium 20 mg PO DAILY 09/16/20 11/02/20 History Budesonide [Pulmicort] 0.5 mg INHALATION RT-BID 10/11/20 11/02/20 History Formoterol Fumarate [Perforomist] 20 mg INHALATION RT-BID 10/11/20 11/02/20 History Loratadine [Claritin] 10 mg PO DAILY 10/11/20 11/02/20 History Melatonin 3 mg PO HS 10/11/20 11/02/20 History traZODone HCL 150 mg PO HS 10/11/20 11/02/20 History Acetaminophen Tab [Tylenol Tab] 500 mg PO Q6HR PRN 10/15/20 11/02/20 History Benzocaine/Menthol Lozeng [Cepacol 1 lozenge PO QID PRN 11/02/20 11/02/20 History lozenge] Sulfamethox-Tmp 800-160Mg [Bactrim 1 tab PO TID 11/02/20 11/02/20 History DS 800-160 mg] predniSONE See Taper PO DAILY 11/02/20 11/02/20 History Allergies Allergy/AdvReac Type Severity Reaction Status Date / Time infliximab [From Remicade] Allergy Dyspnea/HIV Verified 10/15/20 18:17 ES propoxyphene [From Darvon] Allergy Rash/Hives Verified 10/15/20 18:17 adhesive tape AdvReac "is hard Verified 10/15/20 18:17 on skin" Physical Exam Vitals: Vital Signs Temp Pulse Pulse Resp BP BP Pulse Ox 11/03/20 10:53 92 11/03/20 10:42 90 11/03/20 08:00 98.1 F 91 20 123/69 98 11/03/20 07:10 89 11/03/20 06:58 88 11/03/20 02:18 97.3 F L 89 113/55 96 11/03/20 00:40 98.2 F 87 18 120/65 98 11/03/20 00:00 18 11/02/20 23:29 91 11/02/20 23:19 91 11/02/20 22:09 95 20 143/64 94 L 11/02/20 22:00 82 20 11/02/20 21:00 92 18 11/02/20 20:00 92 18 11/02/20 19:20 92 11/02/20 19:13 90 11/02/20 18:00 98.0 F 90 18 107/84 97 11/02/20 14:48 99.0 F 108 H 22 145/85 96 Intake and Output 11/02/20 11/03/20 11/03/20 22:59 06:59 14:59 Intake Total 99.736 Output Total 1 Balance 98.736 Intake: Intake, IV Titration 99.736 Amount Heparin Sod,Pork in 0.45% 99.736 NaCl 25,000 unit In 0.45 % NaCl 1 250ml.bag @ 18 UNITS/KG/HR 13.212 mls/hr IV .[id number] [facility] Rx#: [id number] Output: Urine 1 Other: Voiding Method Toilet # Voids 2 Weight 73.4 kg GENERAL EXAM: Revealed a 65-year-old female on few liters nasal cannula, in no distress. HEAD: Normocephalic/atraumatic. ENT: PERRLA, EOMI, no icterus, no neck masses, no JVD, no stridor. Moist mucous membranes. CHEST: No chest wall deformity. Symmetrical expansion. LUNGS: Diminished breath sounds at the bases wheezing on forced expiratory maneuver noted bilaterally. CVS: Regular rate and rhythm, normal S1 and S2, no gallops, no murmurs, no rubs ABDOMEN: Soft, nontender. No hepatosplenomegaly, normal bowel sounds, no guarding or rigidity. EXTREMITIES: No clubbing, no edema, no cyanosis, 2+ pulses and upper and lower extremities. MUSCULOSKELETAL: Muscle strength and tone normal. SKIN: No rashes CENTRAL NERVOUS SYSTEM: Alert and oriented 3 focal neurologic deficits PSYCHIATRIC: Normal mood, affect and normal mental status examination Results - Laboratory Findings CBC and BMP: 11/02/20 15:46 11/02/20 15:46 PT/INR, D-dimer PT 9.3 sec (9.0-12.0) 11/02/20 15:46 INR 0.8 (<1.2) 11/02/20 15:46 Abnormal lab findings: Abnormal Labs 11/02/20 11/02/20 11/02/20 15:46 15:46 15:46 WBC 20.3 H RBC 3.34 L Hgb 10.1 L Hct 31.0 L RDW 16.5 H Neutrophils # 19.3 H Lymphocytes # 0.4 L APTT 20.1 L Sodium 134 L Glucose 138 H POC Glucose (mg/dL) C-Reactive Protein 76.2 H Procalcitonin 11/02/20 11/03/20 11/03/20 15:46 07:04 07:37 WBC RBC Hgb Hct RDW Neutrophils # Lymphocytes # APTT 113.8 H* Sodium Glucose POC Glucose (mg/dL) 141 H C-Reactive Protein Procalcitonin 0.10 H 11/03/20 11:49 WBC RBC Hgb Hct RDW Neutrophils # Lymphocytes # APTT Sodium Glucose POC Glucose (mg/dL) 148 H C-Reactive Protein Procalcitonin - Diagnostic Findings Chest x-ray: image reviewed (As noted in HPI.) Assessment and Plan Assessment: Acute exacerbation of COPD Chronic hypoxic rest for a failure maintained on oxygen at home at 2 L to 3 L/m via nasal cannula. Remote history of deep vein thrombosis. Benign essential hypertension. History of rheumatoid arthritis. History of restless leg syndrome. 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 Recommendation: Patient will remain on the present medications including: Solu-Medrol, DuoNeb, Pulmicort, Perforomist,daliresp GI and DVT prophylaxis, We'll continue to follow Time with Patient: Greater than 30
[2020-11-03] MEDS: VANCOMYCIN 1,250 MG in SODIUM CHLORIDE 0.9% 250 ML IVPB SCH (14:35)
[2020-11-03 17:17] LABS: Glucose,Whole Blood 241 mg/dL (75-99)
[2020-11-03] MEDS: ACETAMINOPHEN TAB 500 MG TAB PO PRN (17:28)
[2020-11-03] MEDS ORDERED: SODIUM CHLORIDE 0.65% NASAL SPRAY 44 ML BTL NASAL PRN (18:31)
[2020-11-03] MEDS ORDERED: BENZOCAINE/MENTHOL LOZENG 1 EACH LOZENGE MUCOUS MEM PRN (18:33)
[2020-11-03] MEDS: BUDESONIDE 1 MG/2 ML NEBU INHALATION SCH (19:20)
[2020-11-03] MEDS: FORMOTEROL FUMARATE 20 MCG/2 ML NEBU INHALATION SCH (19:20)
[2020-11-03] MEDS ORDERED: ALPRAZolam 0.5 MG TAB PO STA (20:01)
[2020-11-03] MEDS: AZITHROMYCIN 500 MG TAB PO SCH (20:51)
[2020-11-03] MEDS: MAGNESIUM OXIDE 400 MG TAB PO SCH (20:52)
[2020-11-03] MEDS: MELATONIN 3 MG TABLET PO SCH (20:52)
[2020-11-03] MEDS: MONTELUKAST 10 MG TAB PO SCH (20:52)
[2020-11-03] MEDS: traZODone HCL 50 MG TAB PO SCH (20:52)
[2020-11-03] MEDS: NON FORMULARY DRUG (Roflumilast [Daliresp] 500 MCG Tablet) PO SCH (20:53)
[2020-11-03 20:54] LABS: Glucose,Whole Blood 120 mg/dL (75-99)
[2020-11-03] MEDS: LIDOCAINE 5% PATCH TOPICAL SCH (22:44)
[2020-11-04] MEDS: IPRATROPIUM-ALBUTEROL 3 ML NEB INHALATION PRN ×2 (02:35→12:54)
[2020-11-04] MEDS: VANCOMYCIN 1,250 MG in SODIUM CHLORIDE 0.9% 250 ML IVPB SCH ×2 (02:36→21:26)
[2020-11-04] MEDS: PIPERACILLIN-TAZOBACTAM 3.375 GM in SODIUM CHLORIDE 0.9% 100 ML IVPB SCH ×3 (02:36→21:21)
[2020-11-04] MEDS: methylPREDNISolone SOD SUCCI 125 MG/2 ML VIAL IV SCH ×3 (05:15→18:18)
[2020-11-04] MEDS: ACETAMINOPHEN TAB 500 MG TAB PO PRN ×3 (05:56→19:53)
[2020-11-04 06:14] LABS: Anisocytosis Slight; Basophils % (A) 0 %; Eosinophils % (A) 0 %; Hypochromasia Moderate; Lymphocytes # (A) 0.3 k/uL (1.0-4.8); Lymphocytes % (A) 2 %; MCH 30.4 pg (25.0-35.0); MCHC 31.9 g/dL (31.0-37.0); MCV 95.3 fL (80.0-100.0); Mean Platelet Volume 8.1; Monocytes # (A) 0.3 k/uL (0-1.0); Monocytes % (A) 3 %; Neutrophils # (A) 10.9 k/uL (1.3-7.7); Neutrophils % (A) 95 %; Platelet Count 216 k/uL (150-450); RBC 2.83 m/uL (3.80-5.40); RDW 16.6 % (11.5-15.5); WBC 11.6 k/uL (3.8-10.6)
[2020-11-04 06:16] LABS: HGB 8.6 gm/dL (11.4-16.0)
[2020-11-04 06:52] LABS: Glucose,Whole Blood 108 mg/dL (75-99)
[2020-11-04 07:38] LABS: African American GFR (CKD) >90 (>60 ml/min/1.73 sqM); Non-African American GFR(CKD) >90 (>60 ml/min/1.73 sqM)
[2020-11-04] MEDS: FORMOTEROL FUMARATE 20 MCG/2 ML NEBU INHALATION SCH ×2 (08:01→19:41)
[2020-11-04] MEDS: IPRATROPIUM-ALBUTEROL 3 ML NEB INHALATION SCH ×4 (08:01→19:41)
[2020-11-04] MEDS: BUDESONIDE 1 MG/2 ML NEBU INHALATION SCH ×2 (08:01→19:41)
[2020-11-04] MEDS: MULTIVITAMINS, THERA 1 EACH TAB PO SCH (08:46)
[2020-11-04] MEDS: LORATADINE 10 MG TAB PO SCH (08:46)
[2020-11-04] MEDS: CHOLECALCIFEROL 1,000 UNIT TAB PO SCH (08:46)
[2020-11-04] MEDS: PANTOPRAZOLE 40 MG TABLET PO SCH (08:46)
[2020-11-04] MEDS: INSULIN ASPART (NovoLOG) 100 UNIT/ML VIAL SQ SCH ×4 (08:47→21:17)
--- NOTE | 2020-11-04 10:19 | P.PN ---
Subjective Progress Note Date: 11/04/20 Principal diagnosis: Shortness of breath Patient has not noticed any significant improvement compared to admission. Only minimal activity going to the bedside commode will cause her to struggle with sob. No fevers or chills. Objective - Vital Signs Vital signs: Vital Signs Temp 97.9 F 11/04/20 07:23 Pulse 94 11/04/20 08:22 Resp 18 11/04/20 07:23 BP 163/79 11/04/20 07:23 Pulse Ox 99 11/04/20 07:23 Intake & Output 11/03/20 11/04/20 11/04/20 18:59 06:59 18:59 Intake Total 528.681 78.361 Output Total 2 Balance 526.681 78.361 Intake: Intake, IV Titration 528.681 78.361 Amount Heparin Sod,Pork in 0.45% 178.681 78.361 NaCl 25,000 unit In 0.45 % NaCl 1 250ml.bag @ 18 UNITS/KG/HR 13.212 mls/hr IV .[id number] [facility] Rx#: [id number] Piperacillin-Tazobactam 3 100 .375 gm In Sodium Chloride 0.9% 100 ml @ 25 mls/hr IVPB Q8H [facility] Rx#: [id number] Vancomycin 1,250 mg In 250 Sodium Chloride 0.9% 250 ml @ 125 mls/hr IVPB Q16H [facility] Rx#:[id number] Output: Urine 1 Stool 1 Other: Voiding Method Bedside Commode # Voids 4 3 # Bowel Movements 0 - Exam General: Chronically ill-appearing female in mild respiratory distress, appears at stated age, obese Derm: no unusual rashes/lesions no unusual ecchymoses, warm, dry Head: atraumatic, normocephalic, symmetric Eyes: EOMI, no lid lag, anicteric sclera, pupils equal round reactive to light ENT: Nose and ears atraumatic, no thrush, no pharyngeal erythema Neck: No thyromegaly, no cervical lymphadenopathy, trachea midline, supple Mouth: no lip lesion, mucus membranes moist Cardiovascular: S1S2 reg, no murmur, positive posterior tibial pulse bilateral, trace bilateral lower extremity pitting edema R>L with R calf tenderness, ca pillary refill less than 2 seconds Lungs: Poor air entry bilaterally with diffuse wheezing and bibasilar rhonchi, no accessory muscle use Abdominal: soft, nontender to palpation, no guarding, no appreciable organomegaly, normal bowel sounds Ext: no gross muscle atrophy, muscle strength 5 out of 5 in all 4 extremities grossly, no contractures, Neuro: CN II-XI grossly intact, light touch intact all 4 extremities, finger to nose within normal limits, Psych: Alert, oriented, appropriate affect - Labs CBC & Chem 7: 11/04/20 05:48 11/04/20 05:48 Labs: Abnormal Lab Results - Last 24 Hours (Table) 11/03/20 11/03/20 11/03/20 Range/Units 11:49 15:42 16:57 WBC (3.8-10.6) k/uL RBC (3.80-5.40) m/uL Hgb (11.4-16.0) gm/dL Hct (34.0-46.0) % RDW (11.5-15.5) % Neutrophils # (1.3-7.7) k/uL Lymphocytes # (1.0-4.8) k/uL APTT 42.2 H (22.0-30.0) sec POC Glucose (mg/dL) 148 H 241 H (75-99) mg/dL 11/03/20 11/03/20 11/04/20 Range/Units 20:53 22:59 05:48 WBC 11.6 H (3.8-10.6) k/uL RBC 2.83 L (3.80-5.40) m/uL Hgb 8.6 L D (11.4-16.0) gm/dL Hct 27.0 L (34.0-46.0) % RDW 16.6 H (11.5-15.5) % Neutrophils # 10.9 H (1.3-7.7) k/uL Lymphocytes # 0.3 L (1.0-4.8) k/uL APTT 68.7 H (22.0-30.0) sec POC Glucose (mg/dL) 120 H (75-99) mg/dL 11/04/20 11/04/20 Range/Units 05:48 06:51 WBC (3.8-10.6) k/uL RBC (3.80-5.40) m/uL Hgb (11.4-16.0) gm/dL Hct (34.0-46.0) % RDW (11.5-15.5) % Neutrophils # (1.3-7.7) k/uL Lymphocytes # (1.0-4.8) k/uL APTT 45.0 H (22.0-30.0) sec POC Glucose (mg/dL) 108 H (75-99) mg/dL Microbiology - Last 24 Hours (Table) 11/03/20 11:30 Gram Stain - Preliminary Sputum Sputum Culture - Preliminary 11/02/20 15:46 Blood Culture - Preliminary Blood No Growth after 24 hours 11/02/20 15:46 Blood Culture - Preliminary Blood No Growth after 24 hours Assessment and Plan Plan: Acute COPD exacerbation Healthcare associated pneumonia -Continue with Solu-Medrol and DuoNeb's -Continue zosyn and vancomycin, azithromycin for atypicals coverage, check MRSA nasal screen -Pulmonary consult -Supplemental oxygen -Supplemental insulin scale -Called her transplant physician at [facility] awaiting call back Acute right lower extremity DVT Provoked likely sec to recent illness and hospitalization D/c heparin, start eliquis Hypertension -Continue with home meds Obstructive sleep apnea -Continue with home CPAP therapy, patient has the machine at the bedside Anticipated discharge date: 2-[address]: home A total of 35 minutes was spent on the care of this complex patient more than 50% of the time was spent in counseling and care coordination.
[2020-11-04 11:35] LABS: Glucose,Whole Blood 192 mg/dL (75-99)
[2020-11-04] MEDS: APIXABAN 5 MG TAB PO SCH ×2 (11:41→21:03)
--- NOTE | 2020-11-04 14:20 | P.PN ---
Subjective Progress Note Date: 11/04/20 Principal diagnosis: Acute exacerbation of COPD This is a 65-year-old white female with history of severe COPD, FEV1 is 27%, patient is O2 dependent, frequently on prednisone for recurrent episodes of COPD exacerbation, patient was recently at [facility] for symptoms of COPD exacerbation and was treated with prednisone again, patient is frequently in the hospital with symptoms of COPD exacerbation, including cough, wheezing, shortness of breath, cough is often productive with whitish phlegm, no fever no chills no hemoptysis. Patient is supposedly on the lung transplant list at [facility], patient was last at [facility] on October 15, and she was transferred at that time to [facility], back again with similar symptoms. Again mostly symptoms of acute exacerbation of COPD. Chest x-ray showed bibasilar atelectasis, doubt infiltrates. Patient was readmitted this time, and I was asked to see her on consultation On 11/04/2020 patient seen in follow-up on medical floor. She is still quite tight and bronchospastic, coughing. She remains on IV steroids, nebulized bronchodilators, COVID 19 PCR test was negative. Blood and sputum cultures so far have been negative. Patient was found to have a DVT in the right proximal femoral vein, with evidence of nonocclusive thrombus. She was started on heparin infusion. Left leg was negative for DVT. She will be switched Eliquis, she remains on azithromycin, Zosyn, and vancomycin for empiric antibiotic coverage. Objective - Vital Signs Vital signs: Vital Signs Temp 97.9 F 11/04/20 07:23 Pulse 97 11/04/20 13:09 Resp 18 11/04/20 07:23 BP 163/79 11/04/20 07:23 Pulse Ox 99 11/04/20 07:23 Intake & Output 11/03/20 11/04/20 11/04/20 18:59 06:59 18:59 Intake Total 528.681 78.361 Output Total 2 Balance 526.681 78.361 Intake: Intake, IV Titration 528.681 78.361 Amount Heparin Sod,Pork in 0.45% 178.681 78.361 NaCl 25,000 unit In 0.45 % NaCl 1 250ml.bag @ 18 UNITS/KG/HR 13.212 mls/hr IV .[id number] [facility] Rx#: [id number] Piperacillin-Tazobactam 3 100 .375 gm In Sodium Chloride 0.9% 100 ml @ 25 mls/hr IVPB Q8H [facility] Rx#: [id number] Vancomycin 1,250 mg In 250 Sodium Chloride 0.9% 250 ml @ 125 mls/hr IVPB Q16H [facility] Rx#:[id number] Output: Urine 1 Stool 1 Other: Voiding Method Bedside Commode # Voids 4 3 # Bowel Movements 0 - Exam GENERAL EXAM: Alert, very pleasant, 65-year-old white female, on 3 L of oxygen pulse ox of 99%, comfortable in no apparent distress. HEAD: Normocephalic/atraumatic. EYES: Normal reaction of pupils, equal size. Conjunctiva pink, sclera white. NOSE: Clear with pink turbinates. THROAT: No erythema or exudates. NECK: No masses, no JVD, no thyroid enlargement, no adenopathy. CHEST: No chest wall deformity. Symmetrical expansion. LUNGS: Equal air entry with diffuse wheezing CVS: Regular rate and rhythm, normal S1 and S2, no gallops, no murmurs, no rubs ABDOMEN: Soft, nontender. No hepatosplenomegaly, normal bowel sounds, no guardi ng or rigidity. EXTREMITIES: No clubbing, trace pretibial edema, no cyanosis, 2+ pulses and upper and lower extremities. MUSCULOSKELETAL: Muscle strength and tone normal. Bruising of the right foot n oted SPINE: No scoliosis or deformity SKIN: No rashes CENTRAL NERVOUS SYSTEM: Alert and oriented -3. No focal deficits, tone is normal in all 4 extremities. PSYCHIATRIC: Alert and oriented -3. Appropriate affect. Intact judgment and insight. - Labs CBC & Chem 7: 11/04/20 05:48 11/04/20 05:48 Labs: Abnormal Lab Results - Last 24 Hours (Table) 11/03/20 11/03/20 11/03/20 Range/Units 15:42 16:57 20:53 WBC (3.8-10.6) k/uL RBC (3.80-5.40) m/uL Hgb (11.4-16.0) gm/dL Hct (34.0-46.0) % RDW (11.5-15.5) % Neutrophils # (1.3-7.7) k/uL Lymphocytes # (1.0-4.8) k/uL APTT 42.2 H (22.0-30.0) sec POC Glucose (mg/dL) 241 H 120 H (75-99) mg/dL 11/03/20 11/04/20 11/04/20 Range/Units 22:59 05:48 05:48 WBC 11.6 H (3.8-10.6) k/uL RBC 2.83 L (3.80-5.40) m/uL Hgb 8.6 L D (11.4-16.0) gm/dL Hct 27.0 L (34.0-46.0) % RDW 16.6 H (11.5-15.5) % Neutrophils # 10.9 H (1.3-7.7) k/uL Lymphocytes # 0.3 L (1.0-4.8) k/uL APTT 68.7 H 45.0 H (22.0-30.0) sec POC Glucose (mg/dL) (75-99) mg/dL 11/04/20 11/04/20 Range/Units 06:51 11:34 WBC (3.8-10.6) k/uL RBC (3.80-5.40) m/uL Hgb (11.4-16.0) gm/dL Hct (34.0-46.0) % RDW (11.5-15.5) % Neutrophils # (1.3-7.7) k/uL Lymphocytes # (1.0-4.8) k/uL APTT (22.0-30.0) sec POC Glucose (mg/dL) 108 H 192 H (75-99) mg/dL Microbiology - Last 24 Hours (Table) 11/03/20 11:30 Gram Stain - Preliminary Sputum Sputum Culture - Preliminary 11/02/20 15:46 Blood Culture - Preliminary Blood No Growth after 24 hours 11/02/20 15:46 Blood Culture - Preliminary Blood No Growth after 24 hours Assessment and Plan Plan: Assessment: #1. Acute exacerbation of chronic obstructive pulmonary disease #2. Chronic hypoxic respiratory failure usually wears 2-3 L of oxygen at home #3. Recent hospitalization for exacerbation of COPD #4. Acute right proximal femoral vein nonocclusive DVT, was initially on heparin infusion, was switched to oral Eliquis #5. Remote history of DVT #6. History of rheumatoid arthritis #7. History of restless leg syndrome #8. History of right colectomy #9. 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 Hypertension #11. Anxiety #12. Ex-smoker #13. History of advanced COPD with FEV1 of 27% of predicted, O2 dependent, frequent and recurrent episodes of COPD exacerbations, patient has been evaluated at [facility] and is currently on transplant list for lung transplant Plan: Continue current medical treatment, continue same antibiotics, cannula high-dose IV steroids, bronchodilators, still quite dyspneic, and bronchospastic, not ready for discharge, we'll continue to follow I performed a history & physical examination of the patient and discussed their management with my nurse practitioner, Savanah Mart. I reviewed the nurse practitioner's note and agree with the documented findings and plan of care. Lung sounds are positive for diffuse wheezes throughout the lung guzman. The findings and the impression was discussed with the patient. I attest to the documentation by the nurse practitioner. Time with Patient: Less than 30
[2020-11-04] MEDS: hydrOXYzine pamoate 25 MG CAP PO PRN (16:04)
[2020-11-04 16:13] LABS: Glucose,Whole Blood 221 mg/dL (75-99)
[2020-11-04] MEDS: AZITHROMYCIN 500 MG TAB PO SCH (17:06)
[2020-11-04] MEDS: MAGNESIUM OXIDE 400 MG TAB PO SCH (21:01)
[2020-11-04] MEDS: traZODone HCL 50 MG TAB PO SCH (21:03)
[2020-11-04] MEDS: MELATONIN 3 MG TABLET PO SCH (21:03)
[2020-11-04] MEDS: MONTELUKAST 10 MG TAB PO SCH (21:03)
[2020-11-04] MEDS: NON FORMULARY DRUG (Roflumilast [Daliresp] 500 MCG Tablet) PO SCH (21:04)
[2020-11-04 21:12] LABS: Glucose,Whole Blood 116 mg/dL (75-99)
[2020-11-05] MEDS: methylPREDNISolone SOD SUCCI 125 MG/2 ML VIAL IV SCH ×5 (00:53→23:11)
[2020-11-05] MEDS: LIDOCAINE 5% PATCH TOPICAL SCH ×2 (01:00→08:45)
[2020-11-05] MEDS: IPRATROPIUM-ALBUTEROL 3 ML NEB INHALATION PRN ×2 (01:00→04:51)
[2020-11-05] MEDS: hydrOXYzine pamoate 25 MG CAP PO PRN (05:23)
[2020-11-05] MEDS: PIPERACILLIN-TAZOBACTAM 3.375 GM in SODIUM CHLORIDE 0.9% 100 ML IVPB SCH ×3 (05:24→21:52)
[2020-11-05] MEDS: ACETAMINOPHEN TAB 500 MG TAB PO PRN ×3 (05:31→21:52)
[2020-11-05 06:50] LABS: Anisocytosis Slight; Basophils % (A) 0 %; Eosinophils % (A) 0 %; HCT 30.6 % (34.0-46.0); HGB 9.2 gm/dL (11.4-16.0); Hypochromasia Marked; Lymphocytes # (A) 0.5 k/uL (1.0-4.8); Lymphocytes % (A) 3 %; MCH 29.4 pg (25.0-35.0); MCHC 30.1 g/dL (31.0-37.0); MCV 97.5 fL (80.0-100.0); Macrocytosis Slight; Mean Platelet Volume 7.8; Monocytes # (A) 0.3 k/uL (0-1.0); Monocytes % (A) 2 %; Neutrophils # (A) 13.4 k/uL (1.3-7.7); Neutrophils % (A) 94 %; Platelet Count 278 k/uL (150-450); RBC 3.14 m/uL (3.80-5.40); RDW 16.6 % (11.5-15.5); WBC 14.2 k/uL (3.8-10.6)
[2020-11-05 06:54] LABS: Glucose,Whole Blood 133 mg/dL (75-99)
[2020-11-05] MEDS: INSULIN ASPART (NovoLOG) 100 UNIT/ML VIAL SQ SCH ×4 (07:25→20:50)
[2020-11-05] MEDS: IPRATROPIUM-ALBUTEROL 3 ML NEB INHALATION SCH ×4 (07:38→18:48)
[2020-11-05] MEDS: FORMOTEROL FUMARATE 20 MCG/2 ML NEBU INHALATION SCH ×2 (07:38→18:47)
[2020-11-05] MEDS: BUDESONIDE 1 MG/2 ML NEBU INHALATION SCH ×2 (07:38→18:47)
[2020-11-05 07:55] LABS: Large Platelets Present
[2020-11-05] MEDS: MULTIVITAMINS, THERA 1 EACH TAB PO SCH (08:45)
[2020-11-05] MEDS: APIXABAN 5 MG TAB PO SCH ×2 (08:45→21:51)
[2020-11-05] MEDS: PANTOPRAZOLE 40 MG TABLET PO SCH (08:45)
[2020-11-05] MEDS: LORATADINE 10 MG TAB PO SCH (08:45)
[2020-11-05] MEDS: CHOLECALCIFEROL 1,000 UNIT TAB PO SCH (08:45)
[2020-11-05] MEDS ORDERED: VANCOMYCIN TROUGH DUE 1 EACH MISC MISCELLANE ONE (10:00)
[2020-11-05 10:08] LABS: African American GFR (CKD) 103.9 (60.0-200.0); Non-African American GFR(CKD) 89.7 (60.0-200.0)
[2020-11-05 11:41] LABS: Glucose,Whole Blood 117 mg/dL (75-99)
[2020-11-05] MEDS: VANCOMYCIN 1,250 MG in SODIUM CHLORIDE 0.9% 250 ML IVPB SCH (12:01)
--- NOTE | 2020-11-05 12:58 | P.PN ---
Subjective Progress Note Date: 11/05/20 Principal diagnosis: Acute exacerbation of chronic obstructive pulmonary disease This is a 65-year-old white female with history of severe COPD, FEV1 is 27%, patient is O2 dependent, frequently on prednisone for recurrent episodes of COPD exacerbation, patient was recently at [facility] for symptoms of COPD exacerbation and was treated with prednisone again, patient is frequently in the hospital with symptoms of COPD exacerbation, including cough, wheezing, shortnes s of breath, cough is often productive with whitish phlegm, no fever no chills no hemoptysis. Patient is supposedly on the lung transplant list at [facility], patient was last at [facility] on October 15, and she was transferred at that time to [facility], back again with similar symptoms. Again mostly symptoms of acute exacerbation of COPD. Chest x-ray showed bibasilar atelectasis, doubt infiltrates. Patient was readmitted this time, and I was asked to see her on consultation On 11/04/2020 patient seen in follow-up on medical floor. She is still quite tight and bronchospastic, coughing. She remains on IV steroids, nebulized bronchodilators, COVID 19 PCR test was negative. Blood and sputum cultures so far have been negative. Patient was found to have a DVT in the right proximal femoral vein, with evidence of nonocclusive thrombus. She was started on heparin infusion. Left leg was negative for DVT. She will be switched Eliquis, she remains on azithromycin, Zosyn, and vancomycin for empiric antibiotic coverage. Patient is seen today 11/05/2020 follow-up on the regular medical floor. She is currently resting comfortably in bed. Awake and alert in no acute distress. She is still wheezing. Still quite dyspneic with minimal exertion. Dry nonproductive cough. Maintaining O2 saturations in the 90s on 4 L/m per nasal cannula. She's afebrile. The culture reveals no growth to date. Sputum culture pending. White count 14.2. Hemoglobin 9.2. Doppler positive for DVT of the right lower extremity. Currently on Eliquis. Remains on DuoNeb inhalations, Pulmicort and Perforomist inhalations, Daliresp, Singulair, IV Solu-Medrol. Antibiotics in the form of vancomycin and Zosyn. Objective - Vital Signs Vital signs: Vital Signs Temp 97.6 F 11/05/20 07:46 Pulse 92 11/05/20 11:07 Resp 18 11/05/20 07:46 BP 167/75 11/05/20 07:46 Pulse Ox 97 11/05/20 07:46 Intake & Output 11/04/20 11/05/20 11/05/20 18:59 06:59 18:59 Intake Total 100 Output Total 1 Balance 99 Intake: Oral 100 Output: Stool 1 Other: Voiding Method Bedside Commode Bedside Commode # Voids 3 # Bowel Movements 0 - Exam GENERAL EXAM: Alert, very pleasant, obese, 65-year-old female patient, on 4 L of oxygen pulse ox of 97%, comfortable in no apparent distress. HEAD: Normocephalic/atraumatic. EYES: Normal reaction of pupils, equal size. Conjunctiva pink, sclera white. NOSE: Clear with pink turbinates. THROAT: No erythema or exudates. NECK: No masses, no JVD, no thyroid enlargement, no adenopathy. CHEST: No chest wall deformity. Symmetrical expansion. LUNGS: Equal air entry with diffuse wheezing, diminished CVS: Regular rate and rhythm, normal S1 and S2, no gallops, no murmurs, no rubs ABDOMEN: Soft, nontender. No hepatosplenomegaly, normal bowel sounds, no guarding or rigidity. EXTREMITIES: No clubbing, trace pretibial edema, no cyanosis, 2+ pulses and upper and lower extremities. MUSCULOSKELETAL: Muscle strength and tone normal. Bruising of the right foot noted SPINE: No scoliosis or deformity SKIN: No rashes CENTRAL NERVOUS SYSTEM: Alert and oriented -3. No focal deficits, tone is normal in all 4 extremities. PSYCHIATRIC: Alert and oriented -3. Appropriate affect. Intact judgment and insight. - Labs CBC & Chem 7: 11/05/20 05:32 11/05/20 05:32 Labs: Abnormal Lab Results - Last 24 Hours (Table) 11/04/20 11/04/20 11/05/20 Range/Units 16:12 20:57 05:32 WBC 14.2 H (3.8-10.6) k/uL RBC 3.14 L (3.80-5.40) m/uL Hgb 9.2 L (11.4-16.0) gm/dL Hct 30.6 L (34.0-46.0) % MCHC 30.1 L (31.0-37.0) g/dL RDW 16.6 H (11.5-15.5) % Neutrophils # 13.4 H (1.3-7.7) k/uL Lymphocytes # 0.5 L (1.0-4.8) k/uL APTT (22.0-30.0) sec POC Glucose (mg/dL) 221 H 116 H (75-99) mg/dL 11/05/20 11/05/20 11/05/20 Range/Units 05:32 06:53 11:39 WBC (3.8-10.6) k/uL RBC (3.80-5.40) m/uL Hgb (11.4-16.0) gm/dL Hct (34.0-46.0) % MCHC (31.0-37.0) g/dL RDW (11.5-15.5) % Neutrophils # (1.3-7.7) k/uL Lymphocytes # (1.0-4.8) k/uL APTT 19.7 L (22.0-30.0) sec POC Glucose (mg/dL) 133 H 117 H (75-99) mg/dL Microbiology - Last 24 Hours (Table) 11/02/20 15:46 Blood Culture - Preliminary Blood No Growth after 48 hours 11/02/20 15:46 Blood Culture - Preliminary Blood No Growth after 48 hours 11/03/20 11:30 Gram Stain - Preliminary Sputum Sputum Culture - Preliminary Assessment and Plan Assessment: 1. Acute exacerbation of chronic obstructive pulmonary disease 2. Chronic hypoxic respiratory failure usually wears 2-3 L of oxygen at home 3. Recent hospitalization for exacerbation of COPD 4. Acute right proximal femoral vein nonocclusive DVT, was initially on heparin infusion, was switched to oral Eliquis 5. Remote history of DVT 6. History of rheumatoid arthritis 7. History of restless leg syndrome 8. History of right colectomy 9. 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 Hypertension 11. Anxiety 12. Ex-smoker 13. History of advanced COPD with FEV1 of 27% of predicted, O2 dependent, frequent and recurrent episodes of COPD exacerbations, patient has been evaluated at [facility] and is currently on transplant list for lung transplant Plan: The patient was seen and evaluated by Dr. Ibrahim She has been slow to progress Continue the current treatment plan Continue Zosyn, discontinue vancomycin We will continue to follow I, the cosigning physician, performed a history & physical examination of the patient. Lungs sounds with diffuse bilateral wheezing, diminished. Maintaining good O2 saturations in the 90s on 4 L/m per nasal cannula. I discussed the assessment and plan of care with my nurse practitioner, Symone Ohara. I attest to the above note as dictated by her.
--- NOTE | 2020-11-05 16:11 | P.PN ---
Subjective Progress Note Date: 11/05/20 Principal diagnosis: Shortness of breath Patient has not gotten any better compared to admission. She is still struggling with her breathing even going to the bedside commode. No chest pain. She is slightly anxious. No fevers or chills. Objective - Vital Signs Vital signs: Vital Signs Temp 98.1 F 11/05/20 14:00 Pulse 95 11/05/20 15:00 Resp 16 11/05/20 14:00 BP 173/73 11/05/20 14:00 Pulse Ox 98 11/05/20 14:00 Intake & Output 11/04/20 11/05/20 11/05/20 18:59 06:59 18:59 Intake Total 100 Output Total 1 Balance 99 Intake: Oral 100 Output: Stool 1 Other: Voiding Method Bedside Commode Bedside Commode # Voids 3 # Bowel Movements 0 - Exam General: Chronically ill-appearing female in mild respiratory distress, appears at stated age, obese Derm: no unusual rashes/lesions no unusual ecchymoses, warm, dry Head: atraumatic, normocephalic, symmetric Eyes: EOMI, no lid lag, anicteric sclera, pupils equal round reactive to light ENT: Nose and ears atraumatic, no thrush, no pharyngeal erythema Neck: No thyromegaly, no cervical lymphadenopathy, trachea midline, supple Mouth: no lip lesion, mucus membranes moist Cardiovascular: S1S2 reg, no murmur, positive posterior tibial pulse bilateral, trace bilateral lower extremity pitting edema R>L with R calf tenderness, capillary refill less than 2 seconds Lungs: Poor air entry bilaterally with diffuse wheezing and bibasilar rhonchi, no accessory muscle use Abdominal: soft, nontender to palpation, no guarding, no appreciable organome bebo, normal bowel sounds Ext: no gross muscle atrophy, muscle strength 5 out of 5 in all 4 extremities grossly, no contractures, Neuro: CN II-XI grossly intact, light touch intact all 4 extremities, finger to nose within normal limits, Psych: Alert, oriented, appropriate affect - Labs CBC & Chem 7: 11/05/20 05:32 11/05/20 05:32 Labs: Abnormal Lab Results - Last 24 Hours (Table) 11/04/20 11/04/20 11/05/20 Range/Units 16:12 20:57 05:32 WBC 14.2 H (3.8-10.6) k/uL RBC 3.14 L (3.80-5.40) m/uL Hgb 9.2 L (11.4-16.0) gm/dL Hct 30.6 L (34.0-46.0) % MCHC 30.1 L (31.0-37.0) g/dL RDW 16.6 H (11.5-15.5) % Neutrophils # 13.4 H (1.3-7.7) k/uL Lymphocytes # 0.5 L (1.0-4.8) k/uL APTT (22.0-30.0) sec POC Glucose (mg/dL) 221 H 116 H (75-99) mg/dL 11/05/20 11/05/20 11/05/20 Range/Units 05:32 06:53 11:39 WBC (3.8-10.6) k/uL RBC (3.80-5.40) m/uL Hgb (11.4-16.0) gm/dL Hct (34.0-46.0) % MCHC (31.0-37.0) g/dL RDW (11.5-15.5) % Neutrophils # (1.3-7.7) k/uL Lymphocytes # (1.0-4.8) k/uL APTT 19.7 L (22.0-30.0) sec POC Glucose (mg/dL) 133 H 117 H (75-99) mg/dL Microbiology - Last 24 Hours (Table) 11/02/20 15:46 Blood Culture - Preliminary Blood No Growth after 48 hours 11/02/20 15:46 Blood Culture - Preliminary Blood No Growth after 48 hours Assessment and Plan Plan: Acute COPD exacerbation/Healthcare associated pneumonia/acute on chronic hypoxemic respiratory failure -Oxygen requirements increasing -Continue with Solu-Medrol and DuoNeb's -Continue zosyn and vancomycin, azithromycin for atypicals coverage, -Awaiting sputum cx. -Pulmonary following -Supplemental oxygen -Supplemental insulin scale -Patient case was discussed with her transplant physician at , who advised to transfer patient to . Acute right lower extremity DVT Provoked likely sec to recent illness and hospitalization Continue eliquis Hypertension -Continue with home meds Obstructive sleep apnea -Continue with home CPAP therapy, patient has the machine at the bedside Anticipated discharge date and place: Patient will be transferred to [facility], called transfer center and transfer was arranged. A total of 35 minutes was spent on the care of this complex patient more than 50% of the time was spent in counseling and care coordination.
[2020-11-05 16:39] LABS: Glucose,Whole Blood 209 mg/dL (75-99)
[2020-11-05] MEDS: AZITHROMYCIN 500 MG TAB PO SCH (17:18)
[2020-11-05 20:44] LABS: Glucose,Whole Blood 103 mg/dL (75-99)
[2020-11-05] MEDS: NON FORMULARY DRUG (Roflumilast [Daliresp] 500 MCG Tablet) PO SCH (21:51)
[2020-11-05] MEDS: MONTELUKAST 10 MG TAB PO SCH (21:51)
[2020-11-05] MEDS: traZODone HCL 50 MG TAB PO SCH (21:51)
[2020-11-05] MEDS: MAGNESIUM OXIDE 400 MG TAB PO SCH (21:51)
[2020-11-05] MEDS: MELATONIN 3 MG TABLET PO SCH (21:51)
[2020-11-06] MEDS: PIPERACILLIN-TAZOBACTAM 3.375 GM in SODIUM CHLORIDE 0.9% 100 ML IVPB SCH (02:07)
[2020-11-06] MEDS: hydrOXYzine pamoate 25 MG CAP PO PRN (02:27)
[2020-11-06 03:17] VITALS: TEMP 97.7
[2020-11-06] MEDS: methylPREDNISolone SOD SUCCI 125 MG/2 ML VIAL IV SCH (05:37)
[2020-11-06 06:51] LABS: Anisocytosis Slight; Basophils % (A) 0 %; Eosinophils % (A) 0 %; HCT 28.5 % (34.0-46.0); HGB 8.4 gm/dL (11.4-16.0); Hypochromasia Marked; Lymphocytes # (A) 0.4 k/uL (1.0-4.8); Lymphocytes % (A) 4 %; MCH 28.7 pg (25.0-35.0); MCHC 29.3 g/dL (31.0-37.0); MCV 97.9 fL (80.0-100.0); Macrocytosis Slight; Mean Platelet Volume 7.7; Monocytes # (A) 0.3 k/uL (0-1.0); Monocytes % (A) 3 %; Neutrophils # (A) 8.6 k/uL (1.3-7.7); Neutrophils % (A) 92 %; Platelet Count 280 k/uL (150-450); RBC 2.91 m/uL (3.80-5.40); RDW 16.3 % (11.5-15.5); WBC 9.4 k/uL (3.8-10.6)
[2020-11-06 06:53] LABS: Glucose,Whole Blood 120 mg/dL (75-99)
[2020-11-06] MEDS: INSULIN ASPART (NovoLOG) 100 UNIT/ML VIAL SQ SCH (07:05)
[2020-11-06] MEDS: IPRATROPIUM-ALBUTEROL 3 ML NEB INHALATION SCH (07:55)
[2020-11-06] MEDS: BUDESONIDE 1 MG/2 ML NEBU INHALATION SCH (07:55)
[2020-11-06] MEDS: FORMOTEROL FUMARATE 20 MCG/2 ML NEBU INHALATION SCH (07:55)
[2020-11-06] MEDS: PANTOPRAZOLE 40 MG TABLET PO SCH (08:21)
[2020-11-06] MEDS: CHOLECALCIFEROL 1,000 UNIT TAB PO SCH (08:21)
[2020-11-06] MEDS: APIXABAN 5 MG TAB PO SCH (08:21)
[2020-11-06] MEDS: LORATADINE 10 MG TAB PO SCH (08:21)
[2020-11-06] MEDS: MULTIVITAMINS, THERA 1 EACH TAB PO SCH (08:21)
[2020-11-06] MEDS: LIDOCAINE 5% PATCH TOPICAL SCH (08:22)
[2020-11-06 08:23] VITALS: RESP 21
--- NOTE | 2020-11-06 09:15 | P.DS ---
Providers Date of admission: 11/02/20 18:15 Expected date of discharge: 11/06/20 Attending physician: Brenda Rodarte MD Consults: 11/02/20 18:15 Consult Physician Routine Consulting Provider: Jose Elias Goodman Consult Reason/Comments: dyspnea Do you want consulting provider notified?: Yes Primary care physician: [facility]: 65-year-old female with a PMH of end-stage COPD with chronic hypoxic respiratory failure on continuous home oxygen, (on lung transplant list at [facility]) and hypertension who presents to the emergency room with complaints of shortness of breath. The patient reports that her breathing had been gradually worsening over the past few days, and she went to see her primary earlier today who advised her to go to the emergency room. Patient reports chronic cough productive of greenish phlegm, unchanged. Reports occasional subjective fevers. Denied chest discomfort, nausea, vomiting, palpitations, abdominal pain, lower extremity pain or swelling. Of note, the patient was recently admitted to [facility] for similar complaints on 10/15, and after a three-day hospital stay, was transferred to [facility]. The patient reports a few additional days stay at [facility] after which she was discharged to home. Evaluation in the emergency department with chest x-ray revealed increased interstitial densities in the lower lungs suspicious for atypical pneumonia, with EKG showing normal sinus rhythm at 99 bpm. Laboratory evaluation was remarkable for a leukocytosis of 20.3, hemoglobin 10.1, sodium 134, glucose 138, and coronavirus rapid testing negative. Patient was admitted for presumptive COPD exacerbation. Healthcare associated pneumonia could not be ruled out. Patient was requiring 3-4 L of oxygen to keep her sats above 90%. She was started on treatment with bronchodilators, steroids as well as Zosyn and vancomycin. Sputum cultures did not grow MRSA or anything specific and for that reason vancomycin was discontinued. Until the time of discharge patient did not notice any major improvement. She is still getting very short-winded during filling up to the bedside commode. Due to some right foot ecchymosis right lower extremity Doppler was done and that showed DVT. Patient was initially started on heparin drip that was later switched to eliquis. She was seen by pulmonary who agreed with the management. Case was discussed again with the transplant specialist at who advised transferring her to [facility]. Transfer was arranged by myself and patient will be going soon. Time for discharge 35 minutes. Plan - Discharge Summary Discharge Rx Participant: No New Discharge Prescriptions: No Action Multivit-Min/FA/Lycopen/Lutein [Centrum Silver Tablet] 1 tab PO DAILY Roflumilast [Daliresp] 500 mcg PO HS Yupelri 175mcg/3ml 175 mcg INHALATION DAILY@1800 rOPINIRole HCL [Requip] 0.5 mg PO HS Cholecalciferol [Vitamin D3 (25 Mcg = 1000 Iu)] 2,000 units PO DAILY Ipratropium-Albuterol Nebulize [Duoneb 0.5 mg-3 mg/3 ml Soln] 3 ml INHALATION RT-QID PRN PRN Reason: Shortness Of Breath Montelukast [Singulair] 10 mg PO HS #30 tab Magnesium Oxide [Mag-Ox] 200 mg PO HS Omeprazole Magnesium 20 mg PO DAILY Loratadine [Claritin] 10 mg PO DAILY traZODone HCL 150 mg PO HS Melatonin 3 mg PO HS Formoterol Fumarate [Perforomist] 20 mg INHALATION RT-BID Budesonide [Pulmicort] 0.5 mg INHALATION RT-BID Acetaminophen Tab [Tylenol Tab] 500 mg PO Q6HR PRN PRN Reason: Pain Or Fever > 100.5 Sulfamethox-Tmp 800-160Mg [Bactrim DS 800-160 mg] 1 tab PO TID predniSONE See Taper PO DAILY Benzocaine/Menthol Lozeng [Cepacol lozenge] 1 lozenge PO QID PRN PRN Reason: Sore Throat Discharge Medication List Multivit-Min/FA/Lycopen/Lutein [Centrum Silver Tablet] 1 tab PO DAILY 04/19/18 [History] Roflumilast [Daliresp] 500 mcg PO HS 10/09/19 [History] Yupelri 175mcg/3ml 175 mcg INHALATION DAILY@1800 10/09/19 [History] rOPINIRole HCL [Requip] 0.5 mg PO HS 03/24/20 [History] Cholecalciferol [Vitamin D3 (25 Mcg = 1000 Iu)] 2,000 units PO DAILY 04/08/20 [History] Ipratropium-Albuterol Nebulize [Duoneb 0.5 mg-3 mg/3 ml Soln] 3 ml INHALATION RT-QID PRN 04/18/20 [History] Montelukast [Singulair] 10 mg PO HS #30 tab 04/22/20 [Rx] Magnesium Oxide [Mag-Ox] 200 mg PO HS 09/15/20 [History] Omeprazole Magnesium 20 mg PO DAILY 09/16/20 [History] Budesonide [Pulmicort] 0.5 mg INHALATION RT-BID 10/11/20 [History] Formoterol Fumarate [Perforomist] 20 mg INHALATION RT-BID 10/11/20 [History] Loratadine [Claritin] 10 mg PO DAILY 10/11/20 [History] Melatonin 3 mg PO HS 10/11/20 [History] traZODone HCL 150 mg PO HS 10/11/20 [History] Acetaminophen Tab [Tylenol Tab] 500 mg PO Q6HR PRN 10/15/20 [History] Benzocaine/Menthol Lozeng [Cepacol lozenge] 1 lozenge PO QID PRN 11/02/20 [History] Sulfamethox-Tmp 800-160Mg [Bactrim DS 800-160 mg] 1 tab PO TID 11/02/20 [History] predniSONE See Taper PO DAILY 11/02/20 [History] Follow up Appointment(s)/Referral(s): Gavin Riggs [Primary Care Provider] - 1-2 days Activity/Diet/Wound Care/Special Instructions: patients home med in med bin [facility].
[2020-11-06 09:31] VITALS: BP 171/79; PULSE 95
[2020-11-06 09:39] LABS: African American GFR (CKD) 88.4 (60.0-200.0); Non-African American GFR(CKD) 76.3 (60.0-200.0)
== END 2020-11-06 10:14 | disposition short-term general hospital (02) | DRG 190 ==
LOC: EC 14:46 → 4SSUR 18:15
PROVIDERS: ADMIT Internal Medicine; ATTEND Internal Medicine
DX: J44.1 Chronic obstructive pulmonary disease with (acute) exacerbation (principal); J18.9 Pneumonia, unspecified organism; I82.401 Acute embolism and thrombosis of unspecified deep veins of right lower extremity; J96.11 Chronic respiratory failure with hypoxia; J98.11 Atelectasis; J44.0 Chronic obstructive pulmonary disease with (acute) lower respiratory infection; F41.9 Anxiety disorder, unspecified; F90.9 Attention-deficit hyperactivity disorder, unspecified type; G25.81 Restless legs syndrome; G47.33 Obstructive sleep apnea (adult) (pediatric); Z99.89 Dependence on other enabling machines and devices; Z99.81 Dependence on supplemental oxygen; I10 Essential (primary) hypertension; M06.9 Rheumatoid arthritis, unspecified; G89.29 Other chronic pain; M54.9 Dorsalgia, unspecified; Y95 Nosocomial condition; Z20.822 Contact with and (suspected) exposure to COVID-19; Z76.82 Awaiting organ transplant status; Z79.01 Long term (current) use of anticoagulants; Z79.899 Other long term (current) drug therapy; Z80.0 Family history of malignant neoplasm of digestive organs; Z80.49 Family history of malignant neoplasm of other genital organs; Z82.5 Family history of asthma and other chronic lower respiratory diseases; Z85.038 Personal history of other malignant neoplasm of large intestine; Z85.44 Personal history of malignant neoplasm of other female genital organs; Z86.718 Personal history of other venous thrombosis and embolism; Z87.891 Personal history of nicotine dependence; Z90.49 Acquired absence of other specified parts of digestive tract; Z90.710 Acquired absence of both cervix and uterus; Z90.721 Acquired absence of ovaries, unilateral; Z96.651 Presence of right artificial knee joint; Z88.5 Allergy status to narcotic agent; Z88.8 Allergy status to other drugs, medicaments and biological substances; Z87.01 Personal history of pneumonia (recurrent); H91.90 Unspecified hearing loss, unspecified ear
CPT/HCPCS: 36415; 71045; 71046; 80053; 80202; 82565; 82728; 83605; 83615; 83735; 84145; 85025; 85610; 85730; 86140; 87040; 87070; 87205; 87635; 93005; 93970; 94640; 96361; 96365; 96367; 99291

== ENCOUNTER 2020-11-19 09:30 | Day surgery (SDC) | payer MEDICARE, OTHER ==
--- NOTE | 2020-11-19 00:05 | HP ---
HISTORY AND PHYSICAL CHIEF COMPLAINT: Fluid in both ears. HISTORY OF PRESENT ILLNESS: The patient is a pleasant 65-year-old female who was recently seen in my office complaining of having a plugged sensation in both ears. The patient underwent a bilateral myringotomy with insertion of ventilation tubes in March of 2020. At the time of her office visit, clinical examination of the ears revealed chronic bilateral serous otitis media. In addition to this, tympanograms were considered flat suggesting fluid or chronic bilateral serous otitis media so-called glue ear. It was recommend the patient undergo a bilateral myringotomy with possible insertion of Carmen type T tubes under IV sedation with MAC. PAST MEDICAL HISTORY: Past medical history reveals patient has: ALLERGIES: TO DARVON AND REMICADE. MEDICATIONS: Current medications include BuSpar, Singulair, Zofran, Motrin, ipratropium, albuterol, Astelin nasal spray, Flonase nasal spray, trazodone and Benazepril. REVIEW OF SYSTEMS: Cardiovascular system is positive for hypertension. RESPIRATORY SYSTEM: Positive for COPD/emphysema. Gastrointestinal system is positive for GERD, gastroesophageal reflux disorder. Musculoskeletal skeletal system is positive for osteoarthritis. The remainder of review of systems is unremarkable. PREVIOUS SURGERIES: Previous surgeries include bilateral myringotomy x2, right total knee replacement, LASIK surgery, appendectomy, partial colectomy, bilateral cataract surgery, removal of genital warts and colonoscopy. PHYSICAL EXAMINATION: This patient is a 65-year-old female who was alert and cooperative and well oriented to time and place. HEENT examination: Patient is normocephalic. Examination of the ears reveals that both previous newly inserted ventilation tubes are present, however, they are completely occluded with cerumen and therefore nonfunctioning. Pupils are equal, round, react to light and accommodation. Extraocular movements within normal limits. Intranasal examination reveals moderate to severe septal deviation with compensatory hypertrophy of the inferior turbinates and a moderate amount of mucus on the mucous membranes and draining down the posterior pharynx. Cranial nerves 2 through 12 and the remainder of the head and neck exam are all within normal limits. CHEST/CARDIOVASCULAR: Both lung guzman are clear to percussion and auscultation. The patient is in regular sinus rhythm S1, S2 are present without any murmurs, S3s or S4s. Peripheral pulses are bilaterally symmetrical and within normal limits. ABDOMEN: There is no evidence any masses, megaly or tenderness. ABDOMEN: Soft. Skin is unremarkable. MUSCULOSKELETAL within normal limits. NEUROLOGICAL within normal limits. PELVIC/RECTAL exam is deferred at this time because the patient has this done on a regular basis at her family physician's office. The remainder of physical exam is unremarkable. IMPRESSION: Chronic bilateral serous otitis media. PLAN: The patient is scheduled undergo a bilateral myringotomy with insertion of Carmen type T tubes under IV sedation with MAC in the a.m. Attention RNs in the pre-surgical area: I have ordered for this patient to receive 2 grams of Ancef IV in the pre-surgical area as a pre-surgical prophylactic antibiotic once an intravenous line has been established. If the pharmacy department sends a different pre-surgical prophylactic antibiotic to the pre-surgical area for this patient, that order should be cancelled, the medication should be returned to the pharmacy department, and make sure that the patient's account is credited appropriately. I have discussed the risks, benefits and alternative therapies for the above-mentioned procedure and for both sedation/analgesia as well as necessary blood product administration, if indicated, as they pertain to this patient. The patient has indicated his or her understanding and acceptance of the risks and procedures discussed. MMODL / IJN: [id number] /
[~2020-11-19 09:30] MED LIST changes: -DEXAMETHASONE SOD PHOSPHATE 10 MG/ML 1 ML VIAL IV ONE; -HYDROmorphone 0.5 MG/0.5 ML SYRINGE IVP PRN; -KETAMINE 10 MG/ML 20 ML VIAL ONE; -LACTATED RINGERS 1,000 ML IV ONE; -LACTATED RINGERS 1,000 ML IV SCH; -LIDOCAINE 1% (10MG/ML) FOR IV START INTRADERMA PRN; -MIDAZOLAM 2 MG/2 ML VIAL IV PRN; -MIDAZOLAM 2 MG/2 ML VIAL ONE; -OFLOXACIN 0.3% OPHTH DROPS 5 ML BOTTLE BOTH EARS ONE; -ONDANSETRON 4 MG/2 ML VIAL IVP ONE; -PROPOFOL 10 MG/ML 20 ML VIAL IV ONE; -fentaNYL (PF) 50 MCG/ML 2 ML AMP IV PRN; -fentaNYL (PF) 50 MCG/ML 2 ML AMP ONE
[2020-11-19 10:02] VITALS: TEMP 98.2
[2020-11-19 10:20] LABS: Glucose,Whole Blood 87 mg/dL (75-99)
[2020-11-19] MEDS ORDERED: LACTATED RINGERS 1,000 ML IV ONE (10:20)
[2020-11-19] MEDS ORDERED: LIDOCAINE 1% (10MG/ML) FOR IV START INTRADERMA ONE (10:21)
[2020-11-19] MEDS ORDERED: ONDANSETRON 4 MG/2 ML VIAL ONE (10:29)
[2020-11-19] MEDS ORDERED: DEXAMETHASONE SOD PHOSPHATE 4 MG/ML 1 ML VIAL IV ONE (10:33)
[2020-11-19] MEDS ORDERED: KETAMINE 10 MG/ML 20 ML VIAL ONE (11:06)
[2020-11-19] MEDS ORDERED: MIDAZOLAM 2 MG/2 ML VIAL ONE (11:06)
[2020-11-19] MEDS ORDERED: PROPOFOL 10 MG/ML 20 ML VIAL IV ONE (11:06)
[2020-11-19] MEDS ORDERED: EPINEPHrine 1 MG/ML (MDV) 30 ML VIAL TOPICAL ONE (11:32)
[2020-11-19] MEDS ORDERED: OFLOXACIN 0.3% OPHTH DROPS 5 ML BOTTLE BOTH EARS ONE (11:35)
[2020-11-19] MEDS ORDERED: ACETAMINOPHEN TAB 325 MG TAB ONE (12:07)
[2020-11-19] MEDS ORDERED: ACETAMINOPHEN TAB 325 MG TAB PO ONE (12:08)
[2020-11-19 12:20] VITALS: BP 146/68; PULSE 98; RESP 16
--- NOTE | 2020-11-19 18:41 | OP ---
OPERATIVE REPORT DATE OF SURGERY: 11/19/2020 PREOPERATIVE DIAGNOSIS: Chronic bilateral serous otitis media. POSTOPERATIVE DIAGNOSIS: Chronic bilateral serous otitis media. ANESTHESIA: IV sedation with M.A.C. OPERATIVE PROCEDURE: Bilateral myringotomy with insertion of Carmen T-type ventilation tubes and removal of retained/occluded ventilation tubes. SURGEON: Dr. Tabares. COMPLICATIONS: None. OPERATIVE PROCEDURE: The patient was placed on the operating table in supine position. After uneventful induction and IV sedation, satisfactory sedation was obtained. Next, the patient's right ear was draped in the usual and customary fashion, following which, using the Zeiss operating microscope and a #3 aural speculum, the right external auditory canal was cleansed of all wax and debris. The retained Rosalva-Bobbin ventilation tube was inspected and was found to be completely occluded. Therefore it was removed in the usual fashion using a myringotomy knife and a pair of alligator forceps. The occluded ventilation tube was discarded and an extension of the myringotomy incision was made using the myringotomy knife in the anterior inferior quadrant of the right tympanic membrane. The right middle ear space was suctioned free of thick fluid and a Carmen T- type ventilation tube was inserted without difficulty. Next, attention was directed to the left ear, where the same procedure was carried out. Then using the Zeiss operating microscope and a #3 aural speculum, the left external auditory canal was cleansed of all wax and debris. Once again, the retained ventilation tube was found to be completely occluded, and therefore it was removed using a myringotomy knife and a pair of alligator forceps. Subsequently it was discarded. Next, the incision was extended in the anterior inferior quadrant of the left tympanic membrane. The left middle ear space was suctioned free of all thick fluid. Next, a Carmen T-type ventilation tube was inserted through the previously made myringotomy incision without difficulty. At this point, the procedure was terminated. There were no intraoperative complications. The patient tolerated the procedure well and was returned to the recovery room in satisfactory condition. MMODL / IJN: [id number] /
== END 2020-11-19 12:41 | disposition home or self-care (01) ==
LOC: OR 09:30
PROVIDERS: ATTEND Otolaryngology
DX: H65.23 Chronic serous otitis media, bilateral (principal); I10 Essential (primary) hypertension; J44.9 Chronic obstructive pulmonary disease, unspecified; K21.9 Gastro-esophageal reflux disease without esophagitis; Z98.890 Other specified postprocedural states; Z96.651 Presence of right artificial knee joint; Z90.49 Acquired absence of other specified parts of digestive tract; Z98.41 Cataract extraction status, right eye; Z98.42 Cataract extraction status, left eye; Z97.2 Presence of dental prosthetic device (complete) (partial); Z76.82 Awaiting organ transplant status; Z88.5 Allergy status to narcotic agent; Z91.09 Other allergy status, other than to drugs and biological substances; Z88.8 Allergy status to other drugs, medicaments and biological substances
CPT/HCPCS: 69436; J0171; J2250; J1100; J2405; J2704

== ENCOUNTER 2020-12-30 13:41 | Inpatient (IN) | payer MEDICARE, OTHER ==
[2020-12-30] MEDS ORDERED: cefTRIAXone IN SWFI 1,000 MG/10 ML SYRINGE IVP STA (13:57)
[2020-12-30] MEDS ORDERED: LORazepam 2 MG/ML INJ IV STA (13:57)
--- NOTE | 2020-12-30 14:01 | ED ---
SOB HPI - General Chief Complaint: Shortness of Breath Stated Complaint: SOB Time Seen by Provider: 12/30/20 13:41 Source: patient, RN notes reviewed Mode of arrival: ambulatory Limitations: no limitations - History of Present Illness Initial Comments: This is a 65-year-old female who presents from a [facility] by EMS with complaints of shortness of breath. She does have a history of end-stage COPD she states she's been short of breath for a long time normally and 3 L of oxygen at night he's had a cough with yellow phlegm this is been going on for about 3 days fever 103.5 today. She additionally states she's had some redness of both lower extremities and a blister on her left foot for about 3 days. No nausea no vomiting he was noted be hypoxemic in a [facility]. She received 2 albuterols as well as one Atrovent treatment and route as well as steroids. Her saturations have improved. She still is dyspneic and anxious upon arrival. MD Complaint: shortness of breath, cough - Related Data Home Medications Medication Instructions Recorded Confirmed rOPINIRole HCL [Requip] 0.5 mg PO HS 03/24/20 11/19/20 Cholecalciferol [Vitamin D3 (25 2,000 units PO DAILY 04/08/20 11/19/20 Mcg = 1000 Iu)] Ipratropium-Albuterol Nebulize 3 ml INHALATION RT-QID PRN 04/18/20 11/19/20 [Duoneb 0.5 mg-3 mg/3 ml Soln] Magnesium Oxide [Mag-Ox] 200 mg PO HS 09/15/20 11/19/20 Loratadine [Claritin] 10 mg PO DAILY 10/11/20 11/19/20 Melatonin 3 mg PO HS 10/11/20 11/19/20 predniSONE See Taper PO DAILY 11/02/20 11/19/20 Acetaminophen Tab [Tylenol] 650 mg PO Q4H PRN 12/30/20 12/30/20 Cephalexin [Keflex] 500 mg PO TID@0700,1300,1900 12/30/20 12/30/20 Fluticasone Nasal [place] [Flonase 1 spr EA NOSTRIL BID 12/30/20 12/30/20 Nasal [place]] Furosemide [Lasix] 40 mg PO DAILY 12/30/20 12/30/20 Gabapentin [Neurontin] 100 mg PO TID@0700,1300,1900 12/30/20 12/30/20 LORazepam 0.25 mg PO BID PRN 12/30/20 12/30/20 Levofloxacin [Levaquin] 500 mg PO DAILY@0700 12/30/20 12/30/20 Losartan [Cozaar] 50 mg PO DAILY@0700 12/30/20 12/30/20 Metoprolol Tartrate [Lopressor] 12.5 mg PO BID@0700,1900 12/30/20 12/30/20 Morphine Sulfate [Ms Contin] 15 mg PO BID@0700,1900 12/30/20 12/30/20 Multivitamins, Thera [Multivitamin 1 tab PO DAILY 12/30/20 12/30/20 (formulary)] NIFEdipine [NIFEdipine ER] 90 mg PO DAILY@0700 12/30/20 12/30/20 Pantoprazole Sodium [Protonix] 40 mg PO DAILY@0700 12/30/20 12/30/20 Potassium Chloride 8 meq PO DAILY 12/30/20 12/30/20 Sodium Chloride [Sublette] 2 spray EA NOSTRIL Q2H PRN 12/30/20 12/30/20 Theophylline 24 Hour [Sekou-24] 400 mg PO DAILY 12/30/20 12/30/20 metOLazone [Zaroxolyn] 2.5 mg PO DAILY@0500 12/30/20 12/30/20 Previous Rx's Medication Instructions Recorded Montelukast [Singulair] 10 mg PO HS #30 tab 04/22/20 Allergies Allergy/AdvReac Type Severity Reaction Status Date / Time infliximab [From Remicade] Allergy Dyspnea/HIV Verified 12/30/20 14:39 ES propoxyphene [From Darvon] Allergy Rash/Hives Verified 12/30/20 14:39 adhesive tape AdvReac "is hard Verified 12/30/20 14:39 on skin" Review of Systems ROS Statement: Those systems with pertinent positive or pertinent negative responses have been documented in the HPI. ROS Other: All systems not noted in ROS Statement are negative. Past Medical History Past Medical History: Cancer, COPD, Deep Vein Thrombosis (DVT), Hypertension, Pneumonia, Rheumatoid Arthritis (RA) Additional Past Medical History / Comment(s): hearing difficulty currently, colitis, osteopenia, hx cancer of appendix, uses oxygen 2L continuous, waiting for lung transplant due to COPD. chronic back pain, restless leg, recent admission for exacerbation of COPD. 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 Colonoscopy 2016. pain procedure at [facility] with Dr Ty. TAD with unilateral oophorectomy 1983. Partial vulvectomy in 2000. Past Anesthesia/Blood Transfusion Reactions: No Reported Reaction Additional Past Anesthesia/Blood Transfusion Reaction / Comment(s): states is not supposed to have general anesthesia R/T awaiting lung transplant Past Psychological History: ADD/ADHD, Anxiety Smoking Status: Former smoker Past Alcohol Use History: None Reported Past Drug Use History: None Reported - Past Family History Father Family Medical History: Cancer, COPD Additional Family Medical History / Comment(s): COLON cancer Mother Family Medical History: Cancer Additional Family Medical History / Comment(s): ESOPHAGUS cancer Sister(s) Family Medical History: Cancer Additional Family Medical History / Comment(s): CERVICAL cancer General Exam - General Exam Comments Initial Comments: This is a well-developed well-nourished awake alert oriented 3 female Limitations: no limitations General appearance: alert, anxious, in distress Head exam: Present: atraumatic, normocephalic, normal inspection Eye exam: Present: normal appearance, PERRL, EOMI. Absent: scleral icterus, conjunctival injection, periorbital swelling ENT exam: Present: mucous membranes dry Neck exam: Present: normal inspection. Absent: tenderness, meningismus, lymphadenopathy Respiratory exam: Present: wheezes. Absent: respiratory distress, rales, rhonchi, stridor Cardiovascular Exam: Present: regular rate, normal rhythm, normal heart sounds. Absent: systolic murmur, diastolic murmur, rubs, gallop, clicks GI/Abdominal exam: Present: soft, normal bowel sounds. Absent: distended, tenderness, guarding, rebound, rigid Extremities exam: Present: full ROM, tenderness, normal capillary refill, other (Female seen in both anterior legs from approximately ankles to mid tibia erythema noted with increased elevated temperature. Her also some blister formation and dorsal aspect of the left foot. The blistering is not intact at this time. No evidence of any discoloration with respect to any black co). Absent: pedal edema, joint swelling, calf tenderness Back exam: Present: normal inspection Neurological exam: Present: alert, oriented X3, CN II-XII intact Psychiatric exam: Present: normal affect, normal mood Skin exam: Present: warm, dry, intact, normal color. Absent: rash Course Vital Signs 12/30/20 12/30/20 13:44 14:30 Temperature 102.6 F H Pulse Rate 96 87 Respiratory 26 H 28 H Rate Blood Pressure 111/59 88/43 O2 Sat by Pulse 94 L 97 Oximetry - Reevaluation(s) Reevaluation #1: 12/30/20 14:04 I initial reassessment patient was noted be breathing better with a saturation 99% however blood pressure was 80 systolic. She had already received 500 mL of saline from paramedics. Initial 500 mL will be ordered with one 30 mL per hour of normal saline. Reassessment will continue the Biaxin are initiated. Medical Decision Making - Medical Decision Making Patient will require admission she does have evidence of UTI in addition of cellulitis of COPD exacerbation with bronchitis. Case discussed with Dr. puente patient will be admitted with consultation by Dr. Goodman - Lab Data Result diagrams: 12/30/20 14:04 Lab Results 12/30/20 12/30/20 12/30/20 Range/Units 14:04 14:04 14:04 WBC 12.7 H (3.8-10.6) k/uL RBC 2.76 L (3.80-5.40) m/uL Hgb 7.6 L (11.4-16.0) gm/dL Hct 23.8 L (34.0-46.0) % MCV 86.2 D (80.0-100.0) fL MCH 27.5 (25.0-35.0) pg MCHC 31.9 (31.0-37.0) g/dL RDW 17.4 H (11.5-15.5) % Plt Count 376 (150-450) k/uL MPV 7.4 Neutrophils % 83 % Lymphocytes % 9 % Monocytes % 4 % Eosinophils % 3 % Basophils % 0 % Neutrophils # 10.6 H (1.3-7.7) k/uL Lymphocytes # 1.1 (1.0-4.8) k/uL Monocytes # 0.5 (0-1.0) k/uL Eosinophils # 0.4 (0-0.7) k/uL Basophils # 0.0 (0-0.2) k/uL Hypochromasia Slight Poikilocytosis Slight Anisocytosis Slight PT 10.4 (9.0-12.0) sec INR 1.0 (<1.2) APTT 22.0 (22.0-30.0) sec VBG pH (7.31-7.41) VBG pCO2 (37-51) mmHg VBG HCO3 (24-28) mmol/L Plasma Lactic Acid Osmani 1.2 (0.7-2.0) mmol/L NT-Pro-B Natriuret Pep pg/mL Urine Color Urine Appearance (Clear) Urine pH (5.0-8.0) Ur Specific [place] (1.001-1.035) Urine Protein (Negative) Urine Glucose (UA) (Negative) Urine Ketones (Negative) Urine Blood (Negative) Urine Nitrite (Negative) Urine Bilirubin (Negative) Urine Urobilinogen (<2.0) mg/dL Ur Leukocyte Esterase (Negative) Urine RBC (0-5) /hpf Urine WBC (0-5) /hpf Ur Squamous Epith Cells (0-4) /hpf Urine Bacteria (None) /hpf Hyaline Casts (0-2) /lpf Urine Mucus (None) /hpf Urine Yeast (Budding) (None) /hpf 12/30/20 12/30/20 12/30/20 Range/Units 14:04 14:04 14:23 WBC (3.8-10.6) k/uL RBC (3.80-5.40) m/uL Hgb (11.4-16.0) gm/dL Hct (34.0-46.0) % MCV (80.0-100.0) fL MCH (25.0-35.0) pg MCHC (31.0-37.0) g/dL RDW (11.5-15.5) % Plt Count (150-450) k/uL MPV Neutrophils % % Lymphocytes % % Monocytes % % Eosinophils % % Basophils % % Neutrophils # (1.3-7.7) k/uL Lymphocytes # (1.0-4.8) k/uL Monocytes # (0-1.0) k/uL Eosinophils # (0-0.7) k/uL Basophils # (0-0.2) k/uL Hypochromasia Poikilocytosis Anisocytosis PT (9.0-12.0) sec INR (<1.2) APTT (22.0-30.0) sec VBG pH 7.43 H (7.31-7.41) VBG pCO2 54 H (37-51) mmHg VBG HCO3 35 H (24-28) mmol/L Plasma Lactic Acid Osmani (0.7-2.0) mmol/L NT-Pro-B Natriuret Pep 304 pg/mL Urine Color Yellow Urine Appearance Cloudy H (Clear) Urine pH 5.5 (5.0-8.0) Ur Specific [place] 1.017 (1.001-1.035) Urine Protein 1+ H (Negative) Urine Glucose (UA) Negative (Negative) Urine Ketones Negative (Negative) Urine Blood Moderate H (Negative) Urine Nitrite Positive H (Negative) Urine Bilirubin Negative (Negative) Urine Urobilinogen <2.0 (<2.0) mg/dL Ur Leukocyte Esterase Moderate H (Negative) Urine RBC 45 H (0-5) /hpf Urine WBC 26 H (0-5) /hpf Ur Squamous Epith Cells <1 (0-4) /hpf Urine Bacteria Rare H (None) /hpf Hyaline Casts 6 H (0-2) /lpf Urine Mucus Rare H (None) /hpf Urine Yeast (Budding) Occasional H (None) /hpf - EKG Data -: EKG Interpreted by Ne EKG Comments: Sinus rhythm a 96. Interval 114 QRS duration 56 QT/QTC of 306/[address] configuration artifact present. - Radiology Data Radiology results: report reviewed (Review some increased interstitial markings no definitive evidence of pneumonia at this time), image reviewed Critical Care Time Critical Care Time: Yes Total Critical Care Time: 37 Critical Care Time: Critical care time including initial presentation with history physical labs x- rays review of old charting was available multiple reevaluation patient responsive therapy discuss with the admitting physician admission orders and documentation of the above. Disposition Clinical Impression: Acute respiratory distress syndrome in adult, COPD exacerbation, Urinary tract infection, Cellulitis of anterior lower leg, Febrile illness, acute Disposition: ADMITTED IP TO THIS HOSP Condition: Fair Referrals: Yoel aJcobo MD [Primary Care Provider] - 1-2 days
[2020-12-30] MEDS ORDERED: SODIUM CHLORIDE 0.9% 1,000 ML IV STA ×2 (14:04→15:10)
[2020-12-30] MEDS ORDERED: SODIUM CHLORIDE 0.9% 500 ML 500 ML IV STA (14:04)
[2020-12-30 14:22] LABS: VBG PH 7.43 (7.31-7.41)
[2020-12-30 14:23] LABS: Anisocytosis Slight; Basophils % (A) 0 %; Eosinophils # (A) 0.4 k/uL (0-0.7); Eosinophils % (A) 3 %; HCT 23.8 % (34.0-46.0); HGB 7.6 gm/dL (11.4-16.0); Hypochromasia Slight; Lymphocytes # (A) 1.1 k/uL (1.0-4.8); Lymphocytes % (A) 9 %; MCH 27.5 pg (25.0-35.0); MCHC 31.9 g/dL (31.0-37.0); Mean Platelet Volume 7.4; Monocytes # (A) 0.5 k/uL (0-1.0); Monocytes % (A) 4 %; Neutrophils # (A) 10.6 k/uL (1.3-7.7); Neutrophils % (A) 83 %; Platelet Count 376 k/uL (150-450); Poikilocytosis Slight; RBC 2.76 m/uL (3.80-5.40); RDW 17.4 % (11.5-15.5); WBC 12.7 k/uL (3.8-10.6)
[2020-12-30 14:27] LABS: MCV 86.2 fL (80.0-100.0)
[2020-12-30 14:34] LABS: Prothrombin Time 10.4 sec (9.0-12.0)
[2020-12-30 14:36] LABS: Appearance,Urine Cloudy (Clear); Bacteria,Urine Rare /hpf; Bilirubin,Urine Negative (Negative); Blood,Urine Moderate (Negative); Budding Yeast,Urine Occasional /hpf; Color,Urine Yellow; Glucose,Urine (UA) Negative (Negative); Hyaline Casts,Urine 6 /lpf (0-2); Ketones,Urine Negative (Negative); Leukocyte Esterase,Urine Moderate (Negative); Mucus,Urine Rare /hpf; Nitrite,Urine Positive (Negative); PH, Urine 5.5 (5.0-8.0); Protein,Urine 1+ (Negative); RBC,Urine 45 /hpf (0-5); Specific Gravity,Urine 1.017 (1.001-1.035); Squamous Epithelial Cell,Urine <1 /hpf (0-4); Urobilinogen,Urine <2.0 mg/dL (<2.0); WBC,Urine 26 /hpf (0-5)
--- NOTE | 2020-12-30 14:56 | XR ---
EXAMINATION TYPE: XR chest 2V DATE OF EXAM: 12/30/2020 COMPARISON: 11/03/2020 HISTORY: 65 year-old female shortness of breath, difficulty breathing, cough and fever TECHNIQUE: AP and lateral views FINDINGS: Heart mildly enlarged. Diffuse interstitial density especially in the mid and lower lungs persists. T here appear to be trace effusions on the lateral view. IMPRESSION: Cardiomegaly, vascular prominence, and interstitial changes in the mid and lower lungs. Trace effusio ns also present on the lateral view. Correlate for CHF with pulmonary vascular congestion.
[2020-12-30 14:59] LABS: ALT 14 U/L (4-34); AST 17 U/L (14-36); African American GFR (CKD) 51 (>60 ml/min/1.73 sqM); Alkaline Phosphatase 42 U/L (38-126); Anion Gap 5 mmol/L; Blood Urea Nitrogen 23 mg/dL (7-17); Calcium 8.8 mg/dL (8.4-10.2); Carbon Dioxide 36 mmol/L (22-30); Chloride 90 mmol/L (98-107); Creatine Kinase <20 U/L (30-135); Glucose 138 mg/dL (74-99); Magnesium 1.7 mg/dL (1.6-2.3); Non-African American GFR(CKD) 44 (>60 ml/min/1.73 sqM); Potassium 4.5 mmol/L (3.5-5.1); Sodium 131 mmol/L (137-145); Total Bilirubin 0.6 mg/dL (0.2-1.3); Total Protein 5.3 g/dL (6.3-8.2)
[2020-12-30] MEDS ORDERED: ACETAMINOPHEN TAB 325 MG TAB PO PRN (15:05)
--- NOTE | 2020-12-30 15:12 | ED ---
Medical Decision Making - Lab Data Result diagrams: 12/30/20 14:04 12/30/20 14:04 Lab Results 12/30/20 12/30/20 12/30/20 Range/Units 14:04 14:04 14:04 WBC 12.7 H (3.8-10.6) k/uL RBC 2.76 L (3.80-5.40) m/uL Hgb 7.6 L (11.4-16.0) gm/dL Hct 23.8 L (34.0-46.0) % MCV 86.2 D (80.0-100.0) fL MCH 27.5 (25.0-35.0) pg MCHC 31.9 (31.0-37.0) g/dL RDW 17.4 H (11.5-15.5) % Plt Count 376 (150-450) k/uL MPV 7.4 Neutrophils % 83 % Lymphocytes % 9 % Monocytes % 4 % Eosinophils % 3 % Basophils % 0 % Neutrophils # 10.6 H (1.3-7.7) k/uL Lymphocytes # 1.1 (1.0-4.8) k/uL Monocytes # 0.5 (0-1.0) k/uL Eosinophils # 0.4 (0-0.7) k/uL Basophils # 0.0 (0-0.2) k/uL Hypochromasia Slight Poikilocytosis Slight Anisocytosis Slight PT 10.4 (9.0-12.0) sec INR 1.0 (<1.2) APTT 22.0 (22.0-30.0) sec VBG pH (7.31-7.41) VBG pCO2 (37-51) mmHg VBG HCO3 (24-28) mmol/L Sodium 131 L (137-145) mmol/L Potassium 4.5 (3.5-5.1) mmol/L Chloride 90 L (98-107) mmol/L Carbon Dioxide 36 H (22-30) mmol/L Anion Gap 5 mmol/L BUN 23 H (7-17) mg/dL Creatinine 1.27 H (0.52-1.04) mg/dL Est GFR (CKD-EPI)AfAm 51 (>60 ml/min/1.73 sqM) Est GFR (CKD-EPI)NonAf 44 (>60 ml/min/1.73 sqM) Glucose 138 H (74-99) mg/dL Plasma Lactic Acid Osmani (0.7-2.0) mmol/L Calcium 8.8 (8.4-10.2) mg/dL Magnesium 1.7 (1.6-2.3) mg/dL Total Bilirubin 0.6 (0.2-1.3) mg/dL AST 17 (14-36) U/L ALT 14 (4-34) U/L Alkaline Phosphatase 42 (38-126) U/L Creatine Kinase <20 L (30-135) U/L Troponin I (0.000-0.034) ng/mL NT-Pro-B Natriuret Pep pg/mL Total Protein 5.3 L (6.3-8.2) g/dL Albumin 3.0 L (3.5-5.0) g/dL Urine Color Urine Appearance (Clear) Urine pH (5.0-8.0) Ur Specific [place] (1.001-1.035) Urine Protein (Negative) Urine Glucose (UA) (Negative) Urine Ketones (Negative) Urine Blood (Negative) Urine Nitrite (Negative) Urine Bilirubin (Negative) Urine Urobilinogen (<2.0) mg/dL Ur Leukocyte Esterase (Negative) Urine RBC (0-5) /hpf Urine WBC (0-5) /hpf Ur Squamous Epith Cells (0-4) /hpf Urine Bacteria (None) /hpf Hyaline Casts (0-2) /lpf Urine Mucus (None) /hpf Urine Yeast (Budding) (None) /hpf 12/30/20 12/30/20 12/30/20 Range/Units 14:04 14:04 14:04 WBC (3.8-10.6) k/uL RBC (3.80-5.40) m/uL Hgb (11.4-16.0) gm/dL Hct (34.0-46.0) % MCV (80.0-100.0) fL MCH (25.0-35.0) pg MCHC (31.0-37.0) g/dL RDW (11.5-15.5) % Plt Count (150-450) k/uL MPV Neutrophils % % Lymphocytes % % Monocytes % % Eosinophils % % Basophils % % Neutrophils # (1.3-7.7) k/uL Lymphocytes # (1.0-4.8) k/uL Monocytes # (0-1.0) k/uL Eosinophils # (0-0.7) k/uL Basophils # (0-0.2) k/uL Hypochromasia Poikilocytosis Anisocytosis PT (9.0-12.0) sec INR (<1.2) APTT (22.0-30.0) sec VBG pH (7.31-7.41) VBG pCO2 (37-51) mmHg VBG HCO3 (24-28) mmol/L Sodium (137-145) mmol/L Potassium (3.5-5.1) mmol/L Chloride (98-107) mmol/L Carbon Dioxide (22-30) mmol/L Anion Gap mmol/L BUN (7-17) mg/dL Creatinine (0.52-1.04) mg/dL Est GFR (CKD-EPI)AfAm (>60 ml/min/1.73 sqM) Est GFR (CKD-EPI)NonAf (>60 ml/min/1.73 sqM) Glucose (74-99) mg/dL Plasma Lactic Acid Osmani 1.2 (0.7-2.0) mmol/L Calcium (8.4-10.2) mg/dL Magnesium (1.6-2.3) mg/dL Total Bilirubin (0.2-1.3) mg/dL AST (14-36) U/L ALT (4-34) U/L Alkaline Phosphatase (38-126) U/L Creatine Kinase (30-135) U/L Troponin I <0.012 (0.000-0.034) ng/mL NT-Pro-B Natriuret Pep 304 pg/mL Total Protein (6.3-8.2) g/dL Albumin (3.5-5.0) g/dL Urine Color Urine Appearance (Clear) Urine pH (5.0-8.0) Ur Specific [place] (1.001-1.035) Urine Protein (Negative) Urine Glucose (UA) (Negative) Urine Ketones (Negative) Urine Blood (Negative) Urine Nitrite (Negative) Urine Bilirubin (Negative) Urine Urobilinogen (<2.0) mg/dL Ur Leukocyte Esterase (Negative) Urine RBC (0-5) /hpf Urine WBC (0-5) /hpf Ur Squamous Epith Cells (0-4) /hpf Urine Bacteria (None) /hpf Hyaline Casts (0-2) /lpf Urine Mucus (None) /hpf Urine Yeast (Budding) (None) /hpf 12/30/20 12/30/20 Range/Units 14:04 14:23 WBC (3.8-10.6) k/uL RBC (3.80-5.40) m/uL Hgb (11.4-16.0) gm/dL Hct (34.0-46.0) % MCV (80.0-100.0) fL MCH (25.0-35.0) pg MCHC (31.0-37.0) g/dL RDW (11.5-15.5) % Plt Count (150-450) k/uL MPV Neutrophils % % Lymphocytes % % Monocytes % % Eosinophils % % Basophils % % Neutrophils # (1.3-7.7) k/uL Lymphocytes # (1.0-4.8) k/uL Monocytes # (0-1.0) k/uL Eosinophils # (0-0.7) k/uL Basophils # (0-0.2) k/uL Hypochromasia Poikilocytosis Anisocytosis PT (9.0-12.0) sec INR (<1.2) APTT (22.0-30.0) sec VBG pH 7.43 H (7.31-7.41) VBG pCO2 54 H (37-51) mmHg VBG HCO3 35 H (24-28) mmol/L Sodium (137-145) mmol/L Potassium (3.5-5.1) mmol/L Chloride (98-107) mmol/L Carbon Dioxide (22-30) mmol/L Anion Gap mmol/L BUN (7-17) mg/dL Creatinine (0.52-1.04) mg/dL Est GFR (CKD-EPI)AfAm (>60 ml/min/1.73 sqM) Est GFR (CKD-EPI)NonAf (>60 ml/min/1.73 sqM) Glucose (74-99) mg/dL Plasma Lactic Acid Osmani (0.7-2.0) mmol/L Calcium (8.4-10.2) mg/dL Magnesium (1.6-2.3) mg/dL Total Bilirubin (0.2-1.3) mg/dL AST (14-36) U/L ALT (4-34) U/L Alkaline Phosphatase (38-126) U/L Creatine Kinase (30-135) U/L Troponin I (0.000-0.034) ng/mL NT-Pro-B Natriuret Pep pg/mL Total Protein (6.3-8.2) g/dL Albumin (3.5-5.0) g/dL Urine Color Yellow Urine Appearance Cloudy H (Clear) Urine pH 5.5 (5.0-8.0) Ur Specific [place] 1.017 (1.001-1.035) Urine Protein 1+ H (Negative) Urine Glucose (UA) Negative (Negative) Urine Ketones Negative (Negative) Urine Blood Moderate H (Negative) Urine Nitrite Positive H (Negative) Urine Bilirubin Negative (Negative) Urine Urobilinogen <2.0 (<2.0) mg/dL Ur Leukocyte Esterase Moderate H (Negative) Urine RBC 45 H (0-5) /hpf Urine WBC 26 H (0-5) /hpf Ur Squamous Epith Cells <1 (0-4) /hpf Urine Bacteria Rare H (None) /hpf Hyaline Casts 6 H (0-2) /lpf Urine Mucus Rare H (None) /hpf Urine Yeast (Budding) Occasional H (None) /hpf Disposition Clinical Impression: Acute respiratory distress syndrome in adult, COPD exacerbation, Urinary tract infection, Cellulitis of anterior lower leg, Febrile illness, acute, Hypotensive episode Disposition: ADMITTED IP TO THIS [facility] Condition: Fair Referrals: Yoel Jacobo MD [Primary Care Provider] - 1-2 days
[2020-12-30 15:40] LABS: SARS-CoV-2 RNA Rapid Abbott Not Detected (Not Detectd)
[2020-12-30] MEDS: IPRATROPIUM-ALBUTEROL 3 ML NEB INHALATION SCH ×2 (16:24→19:53)
[2020-12-30 16:47] LABS: Glucose,Whole Blood 183 mg/dL (75-99)
[2020-12-30] MEDS ORDERED: IPRATROPIUM-ALBUTEROL 3 ML NEB INHALATION PRN (17:40)
[2020-12-30] MEDS ORDERED: HYDROmorphone 0.5 MG/0.5 ML SYRINGE IVP PRN (17:43)
[2020-12-30] MEDS ORDERED: HYDROcodone/APAP 5-325MG 1 EACH TAB PO PRN (17:43)
--- NOTE | 2020-12-30 18:19 | HP ---
HISTORY AND PHYSICAL DATE OF SERVICE: 12/30/2020 CHIEF COMPLAINTS: Shortness of breath. HISTORY OF PRESENT ILLNESS: This is a 65-year-old woman with a past medical history of multiple medical problems including COPD, history of DVT, hypertension, history of pneumonia, rheumatoid arthritis, being followed by Dr. Jacobo in [facility], who was admitted with shortness of breath. The patient had increasing shortness of breath and the patient also had cough and purulent sputum. The patient was noted to have bilateral leg cellulitis also. The patient also had some left foot blister. The patient was on nonrebreather mask and subsequently titrated to Ventimask currently at this time. The patient also had a fever to 103.5. COVID-19 has been requested. Otherwise, a chest x- ray done in the ER which I personally reviewed showed some vascular congestion, but no evidence of any definite pneumonia at this time. The labs are showing elevated WBC 12.7, hemoglobin 7.6. The patient admitted for further evaluation and treatment. There is no history of any rigors, no headache, loss of consciousness, seizures. The patient also had abnormal urine exam. COVID-19 and influenza negative at this time. PAST MEDICAL HISTORY: History of COPD, history of DVT, hypertension, history of pneumonia, rheumatoid arthritis, history of appendectomy, history of ADHD and anxiety. MEDICATIONS: Prior home medications are Requip, prednisone, Zaroxolyn, Protonix, nifedipine, multivitamin, MS Contin, Singulair, Lopressor, melatonin, magnesium oxide, Cozaar, Claritin, Levaquin, DuoNeb, Neurontin, Lasix, Flonase, vitamin D3, Keflex, Tylenol. ALLERGIES: REMICADE, DARVON, ADHESIVE TAPES. FAMILY HISTORY: History of COPD, colon cancer. SOCIAL HISTORY: Previous history of smoking. No alcohol. REVIEW OF SYSTEMS: Could not be taken. The patient is on Ventimask and patient is slightly confused. PHYSICAL EXAMINATION: VITAL SIGNS: Pulse is 92, blood pressure is 95/45, respiration 18, temperature 98.2, pulse ox 94% on 15 L non-rebreather mask. HEENT: Conjunctivae normal. Oral mucosa moist. NECK: No jugular venous distention. No carotid bruits. No lymph node enlargement. RESPIRATORY: Breath sounds diminished at the bases. Bilateral scattered rhonchi and crackles. HEART: S1 and S2, muffled. ABDOMEN: Soft, no tenderness, obese, minimal distention. EXTREMITIES: Bilateral leg cellulitis and left foot blister also present. NERVOUS: Higher functions as mentioned earlier. Diffusely weak. LYMPHATICS: No lymph nodes palpable in the neck or axillae. SKIN: As mentioned earlier. JOINTS: No active deforming arthropathy. LABS: At this time, WBC 12.2, hemoglobin 7.6. ASSESSMENT: 1. Chronic obstructive pulmonary disease acute exacerbation with acute purulent tracheobronchitis with acute hypoxic respiratory failure and possible severe sepsis, present on admission. 2. Hypotension secondary to sepsis. 3. Hyponatremia. 4. Increased creatinine with acute renal failure. 5. Increased WBC. 6. Anemia, normocytic anemia of chronic disease. 7. History of deep venous thrombosis. 8. Hypertension. 9. History of pneumonia. 10.History of rheumatoid arthritis. 11.History of colitis. 12.History of osteopenia. 13.Chronic hypoxic respiratory failure. 14.Appendectomy. 15.History of bowel resection. 16.History of DJD. 17.History of ADHD. 18.History of anxiety disorder. 19.Remote history of nicotine dependence. 20.Obesity with body mass index of 34. 21.Gait dysfunction. RECOMMENDATION AND DISCUSSION: In this 65-year-old woman who presented with multiple complex medical issues, we will monitor the patient closely. We will initiate broad-spectrum IV antibiotics, intensive bronchodilators, IV steroids. Consult Dr. Goodman and Dr. Huff. Obtain cultures. COVID-19 negative at this time. Monitor fluid/electrolyte balance closely. Fluid boluses given to control the hypotension. Otherwise resume the home medications. Avoid hypertensive agents. Home medications reconsolidation will be done. Repeat labs will be ordered. Prognosis guarded because of multiple complex medical issues. Further recommendations to follow. MMODL / IJN: [id number] / BECKIE
[2020-12-30] MEDS: MORPHINE SULFATE ER 15 MG TABLET PO SCH (18:25)
[2020-12-30] MEDS: GABAPENTIN 100 MG CAP PO SCH (18:25)
[2020-12-30] MEDS: methylPREDNISolone SOD SUCCI 125 MG/2 ML VIAL IV SCH ×2 (18:26→22:54)
[2020-12-30] MEDS: FLUCONAZOLE IN NACL,ISO-OSM 100 MG in SALINE 1 50ML.BAG IVPB SCH (18:27)
[2020-12-30] MEDS: SODIUM CHLORIDE 0.9% 1,000 ML IV SCH (18:27)
[2020-12-30] MEDS ORDERED: METOPROLOL TARTRATE 12.5 MG TAB PO SCH (19:00)
[2020-12-30] MEDS: FORMOTEROL FUMARATE 20 MCG/2 ML NEBU INHALATION SCH (19:53)
[2020-12-30] MEDS: BUDESONIDE 1 MG/2 ML NEBU INHALATION SCH (19:53)
[2020-12-30 19:57] LABS: Glucose,Whole Blood 176 mg/dL (75-99)
[2020-12-30] MEDS: FLUTICASONE 50MCG/SPRAY NASAL 16GM EA NOSTRIL SCH (21:39)
[2020-12-30] MEDS: MELATONIN 3 MG TABLET PO SCH (21:41)
[2020-12-30] MEDS: HEPARIN SODIUM,PORCINE 5,000 UNIT/ML 1 ML VIAL SQ SCH (21:41)
[2020-12-30] MEDS: MONTELUKAST 10 MG TAB PO SCH (21:41)
[2020-12-30] MEDS: INSULIN ASPART (NovoLOG) 100 UNIT/ML VIAL SQ SCH (21:41)
[2020-12-31] MEDS: IPRATROPIUM-ALBUTEROL 3 ML NEB INHALATION SCH ×6 (00:19→19:27)
[2020-12-31] MEDS: PANTOPRAZOLE 40 MG TABLET PO SCH (06:15)
[2020-12-31] MEDS: MORPHINE SULFATE ER 15 MG TABLET PO SCH ×2 (06:16→18:30)
[2020-12-31] MEDS: CHOLECALCIFEROL 25 MCG (1000 IU) TABLET PO SCH (06:16)
[2020-12-31] MEDS: GABAPENTIN 100 MG CAP PO SCH ×3 (06:17→18:30)
[2020-12-31] MEDS: methylPREDNISolone SOD SUCCI 125 MG/2 ML VIAL IV SCH ×4 (06:17→23:39)
[2020-12-31] MEDS: metOLazone 2.5 MG TAB PO SCH (06:19)
[2020-12-31] MEDS: SODIUM CHLORIDE 0.9% 1,000 ML IV SCH ×2 (06:20→09:31)
[2020-12-31 06:37] LABS: Glucose,Whole Blood 186 mg/dL (75-99)
[2020-12-31] MEDS: INSULIN ASPART (NovoLOG) 100 UNIT/ML VIAL SQ SCH ×4 (06:42→22:08)
[2020-12-31] MEDS ORDERED: NIFEdipine XL 90 MG TAB.ER.24 PO SCH (07:00)
[2020-12-31] MEDS ORDERED: LOSARTAN 50 MG TAB PO SCH (07:00)
[2020-12-31] MEDS: FORMOTEROL FUMARATE 20 MCG/2 ML NEBU INHALATION SCH ×2 (08:23→19:27)
[2020-12-31] MEDS: BUDESONIDE 1 MG/2 ML NEBU INHALATION SCH ×2 (08:23→19:27)
[2020-12-31 08:38] LABS: Anisocytosis Slight; Basophils % (A) 0 %; Eosinophils % (A) 0 %; HCT 23.9 % (34.0-46.0); HGB 7.2 gm/dL (11.4-16.0); Hypochromasia Marked; Lymphocytes # (A) 0.5 k/uL (1.0-4.8); Lymphocytes % (A) 6 %; MCHC 29.9 g/dL (31.0-37.0); MCV 90.3 fL (80.0-100.0); Monocytes # (A) 0.2 k/uL (0-1.0); Monocytes % (A) 2 %; Neutrophils % (A) 92 %; Platelet Count 342 k/uL (150-450); RBC 2.65 m/uL (3.80-5.40); RDW 16.9 % (11.5-15.5); WBC 8.8 k/uL (3.8-10.6)
[2020-12-31 08:47] LABS: Calcium 7.7 mg/dL (8.4-10.2); Potassium 4.7 mmol/L (3.5-5.1)
[2020-12-31] MEDS ORDERED: FUROSEMIDE 40 MG TAB PO SCH (09:00)
[2020-12-31] MEDS: POTASSIUM CHLORIDE ER 10 MEQ TAB.ER.PRT PO SCH (09:29)
[2020-12-31] MEDS: LORATADINE 10 MG TAB PO SCH (09:30)
[2020-12-31] MEDS: MAGNESIUM OXIDE 400 MG TAB PO SCH (09:30)
[2020-12-31] MEDS: HEPARIN SODIUM,PORCINE 5,000 UNIT/ML 1 ML VIAL SQ SCH ×2 (09:30→20:20)
[2020-12-31] MEDS: MULTIVITAMINS, THERA 1 EACH TAB PO SCH (09:30)
[2020-12-31] MEDS: FLUTICASONE 50MCG/SPRAY NASAL 16GM EA NOSTRIL SCH ×2 (09:31→20:20)
[2020-12-31] MEDS ORDERED: FUROSEMIDE 10 MG/ML 4 ML VIAL ONE (09:35)
--- NOTE | 2020-12-31 09:37 | P.CNPUL ---
History of Present Illness Consult date: 12/31/20 Reason for consult: dyspnea, cough, COPD History of present illness: 65-year-old female patient with advanced COPD, evaluated, listed and subsequ ently taken off lung transplantation as the patient was becoming progressively more debilitated and she was not found to be a good candidate for his mentation. trasnsplant comes into the hospital because of worsening shortness of breath a few days duration. No chest pain. No pleurisy. No hemoptysis. a she also had some yellowish sputum production and fever with a temperature of 103.5. She cam e into the emergency department because of these symptoms COVID 19 testing was negative. The chest x-ray showed COPD without any acute abnormalities. H . She is known to have an FEV1 of 27% of predicted and she has chronic hypoxic respiratory failure admitted on oxygen at 2 L per minute nasal cannula. She has other comorbidities including RA, hypertension, and previous history of vulvar cancer. She has been maintained on a combination of Perforomist and Pulmicort nebulized treatments twice today and Yupelri nebulized treatments in addition to albuterol updrafts [id number] has had multiple hospitalizations for COPD exacerbation. She is maintained on prednisone 2.5 mg on a daily basis and she also takes theophylline 400 mg by mouth daily. He had noted the patient's last hospitalization [facility] was in October 2020. Following that she was hospitalized again at [facility] for another COPD exacerbation and following that she was transferred to [facility] she also had developed increased swelling in lower extremities and the skin over the left foot has blisters because of the excessive edema. She currently has a Altamirano catheter in place. His taken diuretics in the form of oral Lasix at the [facility]. She was taken Lasix 40 mg by mouth daily and Zaroxolyn 2.5 mg by mouth daily. Review of Systems Constitutional: Denies chills, Denies fever Eyes: denies blurred vision, denies pain Ears, nose, mouth and throat: Denies headache, Denies sore throat Cardiovascular: Denies chest pain, Denies shortness of breath Respiratory: Reports dyspnea, Denies cough and the patient has significant limit ation of exercise capacity because of chronic shortness of breath. Gastrointestinal: Denies abdominal pain, Denies diarrhea, Denies nausea, Denies vomiting Genitourinary: Denies dysuria, Denies hematuria Musculoskeletal: Denies myalgias Integumentary: Denies pruritus, Denies rash Neurological: Denies numbness, Denies weakness Psychiatric: Denies anxiety, Denies depression Endocrine: Denies fatigue, Denies weight change Past Medical History Past Medical History: Cancer, COPD, Deep Vein Thrombosis (DVT), Hypertension, Pneumonia, Rheumatoid Arthritis (RA) Additional Past Medical History / Comment(s): hearing difficulty currently, colitis, osteopenia, hx cancer of appendix, uses oxygen 2L continuous, waiting for lung transplant due to COPD. chronic back pain, restless leg, recent admission for exacerbation of COPD. 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 Colonoscopy 2016. pain procedure at [facility] with Dr Ty. TAD with unilateral oophorectomy 1983. Partial vulvectomy in 2000. Past Anesthesia/Blood Transfusion Reactions: No Reported Reaction Additional Past Anesthesia/Blood Transfusion Reaction / Comment(s): states is not supposed to have general anesthesia R/T awaiting lung transplant Past Psychological History: ADD/ADHD, Anxiety Additional Psychological History / Comment(s): . Smoking Status: Former smoker Past Alcohol Use History: None Reported Additional Past Alcohol Use History / Comment(s): Pt. states she quit smoking in 1999. smoked 1-1 1/2 PPD, started smoking age 13. Past Drug Use History: None Reported Additional Drug Use History / Comment(s): Quit using Marijuana 04/2016. - Past Family History Father Family Medical History: Cancer, COPD Additional Family Medical History / Comment(s): COLON cancer Mother Family Medical History: Cancer Additional Family Medical History / Comment(s): ESOPHAGUS cancer Sister(s) Family Medical History: Cancer Additional Family Medical History / Comment(s): CERVICAL cancer Medications and Allergies Home Medications Medication Instructions Recorded Confirmed Type rOPINIRole HCL [Requip] 0.5 mg PO HS@199903/24/20 12/30/20 History Cholecalciferol [Vitamin D3 (25 50 mcg PO DAILY@0704/08/20 12/30/20 History Mcg = 1000 Iu)] Ipratropium-Albuterol Nebulize 3 ml INHALATION RT-Q4H 04/18/20 12/30/20 History [Duoneb 0.5 mg-3 mg/3 ml Soln] Montelukast [Singulair] 10 mg PO HS #30 tab 04/22/20 12/30/20 Rx Magnesium Oxide [Mag-Ox] 400 mg PO DAILY 09/15/20 12/30/20 History Loratadine [Claritin] 10 mg PO DAILY 10/11/20 12/30/20 History Melatonin 3 mg PO HS 10/11/20 12/30/20 History predniSONE See Taper PO DAILY@0700 11/02/20 12/30/20 History Acetaminophen Tab [Tylenol] 650 mg PO Q4H PRN 12/30/20 12/30/20 History Cephalexin [Keflex] 500 mg PO TID@0700,1300,1900 12/30/20 12/30/20 History Fluticasone Nasal Corry [Flonase 1 spr EA NOSTRIL BID 12/30/20 12/30/20 History Nasal Corry] Furosemide [Lasix] 40 mg PO DAILY 12/30/20 12/30/20 History Gabapentin [Neurontin] 100 mg PO TID@0700,1300,1900 12/30/20 12/30/20 History LORazepam 0.25 mg PO BID PRN 12/30/20 12/30/20 History Levofloxacin [Levaquin] 500 mg PO DAILY@0700 12/30/20 12/30/20 History Losartan [Cozaar] 50 mg PO DAILY@0700 12/30/20 12/30/20 History Metoprolol Tartrate [Lopressor] 12.5 mg PO BID@0700,1900 12/30/20 12/30/20 History Morphine Sulfate [Ms Contin] 15 mg PO BID@0700,1900 12/30/20 12/30/20 History Multivitamins, Thera [Multivitamin 1 tab PO DAILY 12/30/20 12/30/20 History (formulary)] NIFEdipine [NIFEdipine ER] 90 mg PO DAILY@0700 12/30/20 12/30/20 History Pantoprazole Sodium [Protonix] 40 mg PO DAILY@0700 12/30/20 12/30/20 History Potassium Chloride 8 meq PO DAILY 12/30/20 12/30/20 History Sodium Chloride [Marcellus] 2 spray EA NOSTRIL Q2H PRN 12/30/20 12/30/20 History Theophylline 24 Hour [Sekou-24] 400 mg PO DAILY 12/30/20 12/30/20 History metOLazone [Zaroxolyn] 2.5 mg PO DAILY@0500 12/30/20 12/30/20 History Allergies Allergy/AdvReac Type Severity Reaction Status Date / Time infliximab [From Remicade] Allergy Dyspnea/HIV Verified 12/30/20 14:39 ES propoxyphene [From Darvon] Allergy Rash/Hives Verified 12/30/20 14:39 adhesive tape AdvReac "is hard Verified 12/30/20 14:39 on skin" Physical Exam Vitals: Vital Signs Temp Pulse Pulse Resp BP BP Pulse Ox 12/31/20 08:42 90 12/31/20 08:34 86 12/31/20 08:33 86 12/31/20 08:23 84 12/31/20 04:00 98.2 F 82 20 99/55 93 L 12/31/20 03:43 80 12/31/20 03:30 78 96 12/31/20 02:00 18 12/31/20 00:38 76 12/31/20 00:20 77 92 L 12/31/20 00:00 98.8 F 76 18 98/47 94 L 12/30/20 20:13 90 12/30/20 20:02 90 12/30/20 20:00 98.7 F 78 22 90/54 99 12/30/20 19:53 90 12/30/20 16:36 92 12/30/20 16:25 92 92 L 12/30/20 16:15 98.3 F 88 26 H 95/45 94 L 12/30/20 15:45 86 26 H 106/76 94 L 12/30/20 15:08 99.9 F H 98 24 84/66 99 12/30/20 14:30 87 28 H 88/43 97 12/30/20 13:44 102.6 F H 96 26 H 111/59 94 L Intake and Output 12/30/20 12/31/20 12/31/20 22:59 06:59 14:59 Intake Total 180 240 Output Total 175 75 Balance 5 -75 240 Intake: Oral 180 240 Output: Urine 175 75 Other: Voiding Method Indwelling Catheter Indwelling Catheter Weight 78.925 kg 83 kg GENERAL EXAM: Alert, very pleasant, 65-year-old white female, on 10 L of oxygen with pulse ox of 95% comfortable in no apparent distress. HEAD: Normocephalic/atraumatic. EYES: Normal reaction of pupils, equal size. Conjunctiva pink, sclera white. NOSE: Clear with pink turbinates. THROAT: No erythema or exudates. NECK: No masses, no JVD, no thyroid enlargement, no adenopathy. CHEST: No chest wall deformity. Symmetrical expansion. LUNGS: Equal air entry with a few scattered wheezes, and the patient has marked diminished breath sounds bilaterally. CVS: Regular rate and rhythm, normal S1 and S2, no gallops, no murmurs, no rubs ABDOMEN: Soft, nontender. No hepatosplenomegaly, normal bowel sounds, no guarding or rigidity. EXTREMITIES: No clubbing, increased edema lower extremities bilaterally, no cyanosis, 2+ pulses and upper and lower extremities. MUSCULOSKELETAL: Muscle strength and tone normal. SPINE: No scoliosis or deformity SKIN: No rashes, skin blistering vesicle formation over the anterior aspect of the left foot CENTRAL NERVOUS SYSTEM: Alert and oriented -3. No focal deficits, tone is normal in all 4 extremities. PSYCHIATRIC: Alert and oriented -3. Appropriate affect. Intact judgment and insight. Results - Laboratory Findings CBC and BMP: 12/31/20 06:38 12/31/20 06:38 PT/INR, D-dimer PT 10.4 sec (9.0-12.0) 12/30/20 14:04 INR 1.0 (<1.2) 12/30/20 14:04 Abnormal lab findings: Abnormal Labs 12/30/20 12/30/20 12/30/20 14:04 14:04 14:04 WBC 12.7 H RBC 2.76 L Hgb 7.6 L Hct 23.8 L MCHC RDW 17.4 H Neutrophils # 10.6 H Lymphocytes # VBG pH 7.43 H VBG pCO2 54 H VBG HCO3 35 H Sodium 131 L Chloride 90 L Carbon Dioxide 36 H BUN 23 H Creatinine 1.27 H Glucose 138 H POC Glucose (mg/dL) Calcium Creatine Kinase <20 L Total Protein 5.3 L Albumin 3.0 L Urine Appearance Urine Protein Urine Blood Urine Nitrite Ur Leukocyte Esterase Urine RBC Urine WBC Urine Bacteria Hyaline Casts Urine Mucus Urine Yeast (Budding) 12/30/20 12/30/20 12/30/20 14:23 16:45 19:55 WBC RBC Hgb Hct MCHC RDW Neutrophils # Lymphocytes # VBG pH VBG pCO2 VBG HCO3 Sodium Chloride Carbon Dioxide BUN Creatinine Glucose POC Glucose (mg/dL) 183 H 176 H Calcium Creatine Kinase Total Protein Albumin Urine Appearance Cloudy H Urine Protein 1+ H Urine Blood Moderate H Urine Nitrite Positive H Ur Leukocyte Esterase Moderate H Urine RBC 45 H Urine WBC 26 H Urine Bacteria Rare H Hyaline Casts 6 H Urine Mucus Rare H Urine Yeast (Budding) Occasional H 12/31/20 12/31/20 12/31/20 06:35 06:38 06:38 WBC RBC 2.65 L Hgb 7.2 L Hct 23.9 L MCHC 29.9 L RDW 16.9 H Neutrophils # 8.0 H Lymphocytes # 0.5 L VBG pH VBG pCO2 VBG HCO3 Sodium 134 L Chloride 93 L Carbon Dioxide 31 H BUN 32 H Creatinine 1.98 H Glucose 155 H POC Glucose (mg/dL) 186 H Calcium 7.7 L Creatine Kinase Total Protein Albumin Urine Appearance Urine Protein Urine Blood Urine Nitrite Ur Leukocyte Esterase Urine RBC Urine WBC Urine Bacteria Hyaline Casts Urine Mucus Urine Yeast (Budding) - Diagnostic Findings Chest x-ray: image reviewed Assessment and Plan Plan: 1 acute COPD exacerbation secondary hypoxic respiratory failure. The patient is currently up to 10 L about 2 by nasal cannula. She was febrile at time of admission and the patient was also having worsening shortness of breath and her symptoms were typical of COPD exacerbation. [facility]quin [facility]. She has also developed increased swelling in lower extremities bilaterally along with some Blistering over the left foot. 2 advanced COPD with an FEV1 of 27% of predicted with significant limitation exe rcise capacity and chronic dyspnea and respiratory failure. The patient is seeking lung transportation she is off the transplant program at [facility] 3 chronic hypoxic respiratory failure maintained on oxygen at 3 L per minute nasal cannula 4 remote history of DVT 5 hypertension 6 history of rheumatoid arthritis 7 history of chronic back pain 8 restless leg syndrome 9 history of right colectomy with subsequent wound dehiscence and reclosure for a small bowel obstruction. 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 Plan Start the patient on DuoNeb nebulized treatments around the clock Utilizing a combination of Perforomist and Pulmicort neb last 2 minutes twice a day Continue Levaquin 500 mg by mouth daily and add cefepime 2 g every 12 hours IV Lasix 40 every 12 hours along with Zaroxolyn 2.5 mg by mouth twice a day 2-D echocardiogram pro calcitonin level ProBNP level Diflucan 100 mg by mouth daily for oropharyngeal candidiasis She is currently off the transplantation list. I spoke about her case with the transplant team at [facility]. Urine cultures Sputum cultures Resume home medications We will follow
[2020-12-31] MEDS ORDERED: CEFEPIME 1 GM in SODIUM CHLORIDE 0.9% 50 ML IVPB ONE (09:45)
[2020-12-31] MEDS ORDERED: LEVOFLOXACIN 500MG-D5W PMX 500 MG in DEXTROSE/WATER 1 100ML.BAG IVPB ONE (10:00)
[2020-12-31] MEDS: THEOPHYLLINE 24 HOUR 400 MG CAP.ER.24H PO SCH (10:26)
[2020-12-31] MEDS: LORazepam 0.5 MG TAB PO PRN ×2 (10:26→22:08)
[2020-12-31 11:27] LABS: Glucose,Whole Blood 156 mg/dL (75-99)
--- NOTE | 2020-12-31 12:44 | ECHOF ---
Referral Reason:shortness of breath MEASUREMENTS -------- HEIGHT: 152.4 cm WEIGHT: 82.6 kg BP: 99/55 RVIDd: 2.6 cm (< 3.3) IVSd: 1.3 cm (0.6 - 1.1) LVIDd: 4.4 cm (3.9 - 5.3) LVPWd: 1.3 cm (0.6 - 1.1) IVSs: 2.0 cm LVIDs: 3.0 cm LVPWs: 2.1 cm LA Diam: 3.5 cm (2.7 - 3.8) Ao Diam: 2.9 cm (2.0 - 3.7) AV Cusp: 2.1 cm (1.5 - 2.6) MV EXCURSION: 18.742 mm (> 18.000) MV EF SLOPE: 101 mm/s (70 - 150) EPSS: 1.4 cm MV E Jono: 1.56 m/s MV DecT: 220 ms MV A Jono: 1.60 m/s MV E/A Ratio: 0.98 AV maxP.98 mmHg AV meanP.52 mmHg RAP: 15.00 mmHg RVSP: 49.31 mmHg FINDINGS -------- Sinus rhythm. This was a technically difficult study with suboptimal views. The left ventricular size is normal. There is mild concentric left ventricular hypertrophy. Overa ll left ventricular systolic function is normal with, an EF between 60 - 65 %. The right ventricle is normal in size. The left atrium is normal in size. The right atrium is normal in size. 5.0mg of Lumason was utilized for enhancement of images Interatrial and interventricular septum intact. The aortic valve is trileaflet and appears structurally normal. There is trace to mild mitral regurgitation. Mild tricuspid regurgitation present. There is moderate pulmonary hypertension. The right ventric ular systolic pressure, as measured by Doppler, is 49.31mmHg. The pulmonic valve was not well visualized. The aortic root size is normal. The inferior vena cava is dilated with poor inspiratory collapse which is consistent with estimated r ight atrial pressure of 15 mmHg. Echo free space represents a pericardial fat pad. There is no pericardial effusion. CONCLUSIONS -------- 1. The left ventricular size is normal. 2. There is mild concentric left ventricular hypertrophy. 3. Overall left ventricular systolic function is normal with, an EF between 60 - 65 %. 4. 5.0mg of Lumason was utilized for enhancement of images 5. There is trace to mild mitral regurgitation. 6. Mild tricuspid regurgitation present. 7. There is moderate pulmonary hypertension. 8. The right ventricular systolic pressure, as measured by Doppler, is 49.31mmHg. 9. The inferior vena cava is dilated with poor inspiratory collapse which is consistent with estimate d right atrial pressure of 15 mmHg. 10. Echo free space represents a pericardial fat pad. 11. There is no pericardial effusion. [employer] OFFICER: Gayle Villafuerte RDCS
--- NOTE | 2020-12-31 15:15 | P.CONS ---
History of Present Illness - Reason for Consult Consult date: 12/31/20 - History of Present Illness HISTORY OF PRESENT ILLNESS This is extensive 5-year-old female with past medical history significant for COPD with FEV1 of 27% of predicted and chronic hypoxic respiratory failure on home O2 at 2 L nasal cannula along with rheumatoid arthritis. Patient states that she is feeling better since she came in. She is complaining of shortness of breath that she's had for a long time. She also complains of cough with yellow sputum production. She denies any chest pain. She denies any abdominal pain or diarrhea. It appears she has a chronic [place] catheter in place. She does have lower extremity edema with minimal cellulitis. Patient presented with temperature of 102.6 and was initially on nonrebreather mask. Patient also presented with leukocytosis of 12.7 which is improved to 8.8 today. Creatinine is 1.98. Urinalysis cloudy, blood moderate, nitrate positive, leukoesterase moderate, RBCs 45, WBC 26.Coronavirus PCR not detected. Influenza testing negative. Chest x-ray reveals cardiomegaly, vascular prominence and interstitial changes in the mid and lower lungs. Trace effusions present on the lateral view. Correlate for heart failure or pulmonary vascular congestion. Patient has been started on IV cefepime, fluconazole, and Levaquin. REVIEW OF SYSTEMS Constitutional: Documented fever, no chills, no night sweats. No weight change. Reports weakness, reports fatigue. EENT: No headache. No nasal drainage or congestion. No epistaxis. No sore throat. Lungs: Reports shortness of breath, reports cough, reports sputum production. Reports wheezing. Cardiovascular: No chest pain, reports lower extremity edema. No lightheadedness or dizziness. No syncopal episodes. Abdominal: No abdominal pain. No nausea, vomiting. No diarrhea. No constipation. No loss of appetite. Genitourinary: No dysuria, increased frequency, urgency. No urinary retention. Musculoskeletal: No myalgias. No muscle weakness. Integumentary: Reports lower extremity redness No wounds, no lesions. No rash or pruritus. Neurologic: No aphasia. No facial droop. No change in mentation. PHYSICAL EXAMINATION Gen: This is a 65-year-old female patient. Patient is resting in bed and appears to be comfortable at rest. HEENT: Head is atraumatic, normocephalic. Pupils equal, round. Sclerae is anicteric. NECK: Supple. No JVD. LUNGS: Scattered expiratory wheeze and diminished in the bases. No intercostal retractions. HEART: Regular rate and rhythm. ABDOMEN: Soft. No masses. No tenderness. EXTREMITIES: 2+ pedal edema, mild erythema. NEUROLOGICAL: Patient is awake, alert and oriented x3. ASSESSMENT COPD exacerbation with tracheobronchitis Possible urinary tract infection Acute hypoxic respiratory failure Oropharyngeal candidiasis PLAN Patient is currently on Levaquin and cefepime, Diflucan Obtain sputum culture Await results of urine culture Continue supportive care Further recommendations as patient progresses Thank you kindly for this consultation. The above dictated assessment and findings were discussed with Dr. Huff. The impression and plan of care have been directed as dictated. Stephani Pierson nurse practitioner acting as scribe for Dr. Huff. Past Medical History Past Medical History: Cancer, COPD, Deep Vein Thrombosis (DVT), Hypertension, Pneumonia, Rheumatoid Arthritis (RA) Additional Past Medical History / Comment(s): hearing difficulty currently, colitis, osteopenia, hx cancer of appendix, uses oxygen 2L continuous, waiting for lung transplant due to COPD. chronic back pain, restless leg, recent admission for exacerbation of COPD. 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 Colonoscopy 2017. pain procedure at [facility] with Dr Ty. TAD with unilateral oophorectomy 1983. Partial vulvectomy in 2000. Past Anesthesia/Blood Transfusion Reactions: No Reported Reaction Additional Past Anesthesia/Blood Transfusion Reaction / Comm: states is not supposed to have general anesthesia R/T awaiting lung transplant Past Psychological History: ADD/ADHD, Anxiety Additional Psychological History / Comment(s): . Smoking Status: Former smoker Past Alcohol Use History: None Reported Additional Past Alcohol Use History / Comment(s): Pt. states she quit smoking in 1999. smoked 1-1 1/2 PPD, started smoking age 13. Past Drug Use History: None Reported Additional Drug Use History / Comment(s): Quit using Marijuana 04/2016. - Past Family History Father Family Medical History: Cancer, COPD Additional Family Medical History / Comment(s): COLON cancer Mother Family Medical History: Cancer Additional Family Medical History / Comment(s): ESOPHAGUS cancer Sister(s) Family Medical History: Cancer Additional Family Medical History / Comment(s): CERVICAL cancer Medications and Allergies Home Medications Medication Instructions Recorded Confirmed Type rOPINIRole HCL [Requip] 0.5 mg PO HS@199903/24/20 12/30/20 History Cholecalciferol [Vitamin D3 (25 50 mcg PO DAILY@0704/08/20 12/30/20 History Mcg = 1000 Iu)] Ipratropium-Albuterol Nebulize 3 ml INHALATION RT-Q4H 04/18/20 12/30/20 History [Duoneb 0.5 mg-3 mg/3 ml Soln] Montelukast [Singulair] 10 mg PO HS #30 tab 04/22/20 12/30/20 Rx Magnesium Oxide [Mag-Ox] 400 mg PO DAILY 09/15/20 12/30/20 History Loratadine [Claritin] 10 mg PO DAILY 10/11/20 12/30/20 History Melatonin 3 mg PO HS 10/11/20 12/30/20 History predniSONE See Taper PO DAILY@0700 11/02/20 12/30/20 History Acetaminophen Tab [Tylenol] 650 mg PO Q4H PRN 12/30/20 12/30/20 History Cephalexin [Keflex] 500 mg PO TID@0700,1300,1900 12/30/20 12/30/20 History Fluticasone Nasal [place] [Flonase 1 spr EA NOSTRIL BID 12/30/20 12/30/20 History Nasal [place]] Furosemide [Lasix] 40 mg PO DAILY 12/30/20 12/30/20 History Gabapentin [Neurontin] 100 mg PO TID@0700,1300,1900 12/30/20 12/30/20 History LORazepam 0.25 mg PO BID PRN 12/30/20 12/30/20 History Levofloxacin [Levaquin] 500 mg PO DAILY@0700 12/30/20 12/30/20 History Losartan [Cozaar] 50 mg PO DAILY@0700 12/30/20 12/30/20 History Metoprolol Tartrate [Lopressor] 12.5 mg PO BID@0700,1900 12/30/20 12/30/20 History Morphine Sulfate [Ms Contin] 15 mg PO BID@0700,1900 12/30/20 12/30/20 History Multivitamins, Thera [Multivitamin 1 tab PO DAILY 12/30/20 12/30/20 History (formulary)] NIFEdipine [NIFEdipine ER] 90 mg PO DAILY@0700 12/30/20 12/30/20 History Pantoprazole Sodium [Protonix] 40 mg PO DAILY@0700 12/30/20 12/30/20 History Potassium Chloride 8 meq PO DAILY 12/30/20 12/30/20 History Sodium Chloride [[place]] 2 spray EA NOSTRIL Q2H PRN 12/30/20 12/30/20 History Theophylline 24 Hour [[place]-24] 400 mg PO DAILY 12/30/20 12/30/20 History metOLazone [Zaroxolyn] 2.5 mg PO DAILY@0500 12/30/20 12/30/20 History Allergies Allergy/AdvReac Type Severity Reaction Status Date / Time infliximab [From Remicade] Allergy Dyspnea/HIV Verified 12/30/20 14:39 ES propoxyphene [From Darvon] Allergy Rash/Hives Verified 12/30/20 14:39 adhesive tape AdvReac "is hard Verified 12/30/20 14:39 on skin" Physical Exam Vitals: Vital Signs Temp Pulse Pulse Resp BP BP Pulse Ox 12/31/20 11:45 96 12/31/20 11:42 92 12/31/20 10:52 87 L 12/31/20 08:42 90 12/31/20 08:34 86 12/31/20 08:33 86 12/31/20 08:23 84 12/31/20 08:00 98.8 F 88 94/52 95 12/31/20 04:00 98.2 F 82 20 99/55 93 L 12/31/20 03:43 80 12/31/20 03:30 78 96 12/31/20 02:00 18 12/31/20 00:38 76 12/31/20 00:20 77 92 L 12/31/20 00:00 98.8 F 76 18 98/47 94 L 12/30/20 20:13 90 12/30/20 20:02 90 12/30/20 20:00 98.7 F 78 22 90/54 99 12/30/20 19:53 90 12/30/20 16:36 92 12/30/20 16:25 92 92 L 12/30/20 16:15 98.3 F 88 26 H 95/45 94 L 12/30/20 15:45 86 26 H 106/76 94 L 12/30/20 15:08 99.9 F H 98 24 84/66 99 12/30/20 14:30 87 28 H 88/43 97 12/30/20 13:44 102.6 F H 96 26 H 111/59 94 L Intake and Output 12/30/20 12/31/20 12/31/20 22:59 06:59 14:59 Intake Total 180 780 Output Total 175 75 200 Balance 5 -75 580 Intake: Oral 180 780 Output: Urine 175 75 200 Other: Voiding Method Indwelling Catheter Indwelling Catheter Indwelling Catheter Weight 78.925 kg 83 kg Results CBC & Chem 7: 12/31/20 06:38 12/31/20 06:38 Labs: Abnormal Lab Results - Last 24 Hours (Table) 12/30/20 12/30/20 12/30/20 Range/Units 14:04 14:04 14:04 WBC 12.7 H (3.8-10.6) k/uL RBC 2.76 L (3.80-5.40) m/uL Hgb 7.6 L (11.4-16.0) gm/dL Hct 23.8 L (34.0-46.0) % MCHC (31.0-37.0) g/dL RDW 17.4 H (11.5-15.5) % Neutrophils # 10.6 H (1.3-7.7) k/uL Lymphocytes # (1.0-4.8) k/uL VBG pH 7.43 H (7.31-7.41) VBG pCO2 54 H (37-51) mmHg VBG HCO3 35 H (24-28) mmol/L Sodium 131 L (137-145) mmol/L Chloride 90 L (98-107) mmol/L Carbon Dioxide 36 H (22-30) mmol/L BUN 23 H (7-17) mg/dL Creatinine 1.27 H (0.52-1.04) mg/dL Glucose 138 H (74-99) mg/dL POC Glucose (mg/dL) (75-99) mg/dL Calcium (8.4-10.2) mg/dL Creatine Kinase <20 L (30-135) U/L Total Protein 5.3 L (6.3-8.2) g/dL Albumin 3.0 L (3.5-5.0) g/dL Urine Appearance (Clear) Urine Protein (Negative) Urine Blood (Negative) Urine Nitrite (Negative) Ur Leukocyte Esterase (Negative) Urine RBC (0-5) /hpf Urine WBC (0-5) /hpf Urine Bacteria (None) /hpf Hyaline Casts (0-2) /lpf Urine Mucus (None) /hpf Urine Yeast (Budding) (None) /hpf 12/30/20 12/30/20 12/30/20 Range/Units 14:23 16:45 19:55 WBC (3.8-10.6) k/uL RBC (3.80-5.40) m/uL Hgb (11.4-16.0) gm/dL Hct (34.0-46.0) % MCHC (31.0-37.0) g/dL RDW (11.5-15.5) % Neutrophils # (1.3-7.7) k/uL Lymphocytes # (1.0-4.8) k/uL VBG pH (7.31-7.41) VBG pCO2 (37-51) mmHg VBG HCO3 (24-28) mmol/L Sodium (137-145) mmol/L Chloride (98-107) mmol/L Carbon Dioxide (22-30) mmol/L BUN (7-17) mg/dL Creatinine (0.52-1.04) mg/dL Glucose (74-99) mg/dL POC Glucose (mg/dL) 183 H 176 H (75-99) mg/dL Calcium (8.4-10.2) mg/dL Creatine Kinase (30-135) U/L Total Protein (6.3-8.2) g/dL Albumin (3.5-5.0) g/dL Urine Appearance Cloudy H (Clear) Urine Protein 1+ H (Negative) Urine Blood Moderate H (Negative) Urine Nitrite Positive H (Negative) Ur Leukocyte Esterase Moderate H (Negative) Urine RBC 45 H (0-5) /hpf Urine WBC 26 H (0-5) /hpf Urine Bacteria Rare H (None) /hpf Hyaline Casts 6 H (0-2) /lpf Urine Mucus Rare H (None) /hpf Urine Yeast (Budding) Occasional H (None) /hpf 12/31/20 12/31/20 12/31/20 Range/Units 06:35 06:38 06:38 WBC (3.8-10.6) k/uL RBC 2.65 L (3.80-5.40) m/uL Hgb 7.2 L (11.4-16.0) gm/dL Hct 23.9 L (34.0-46.0) % MCHC 29.9 L (31.0-37.0) g/dL RDW 16.9 H (11.5-15.5) % Neutrophils # 8.0 H (1.3-7.7) k/uL Lymphocytes # 0.5 L (1.0-4.8) k/uL VBG pH (7.31-7.41) VBG pCO2 (37-51) mmHg VBG HCO3 (24-28) mmol/L Sodium 134 L (137-145) mmol/L Chloride 93 L (98-107) mmol/L Carbon Dioxide 31 H (22-30) mmol/L BUN 32 H (7-17) mg/dL Creatinine 1.98 H (0.52-1.04) mg/dL Glucose 155 H (74-99) mg/dL POC Glucose (mg/dL) 186 H (75-99) mg/dL Calcium 7.7 L (8.4-10.2) mg/dL Creatine Kinase (30-135) U/L Total Protein (6.3-8.2) g/dL Albumin (3.5-5.0) g/dL Urine Appearance (Clear) Urine Protein (Negative) Urine Blood (Negative) Urine Nitrite (Negative) Ur Leukocyte Esterase (Negative) Urine RBC (0-5) /hpf Urine WBC (0-5) /hpf Urine Bacteria (None) /hpf Hyaline Casts (0-2) /lpf Urine Mucus (None) /hpf Urine Yeast (Budding) (None) /hpf 12/31/20 Range/Units 11:24 WBC (3.8-10.6) k/uL RBC (3.80-5.40) m/uL Hgb (11.4-16.0) gm/dL Hct (34.0-46.0) % MCHC (31.0-37.0) g/dL RDW (11.5-15.5) % Neutrophils # (1.3-7.7) k/uL Lymphocytes # (1.0-4.8) k/uL VBG pH (7.31-7.41) VBG pCO2 (37-51) mmHg VBG HCO3 (24-28) mmol/L Sodium (137-145) mmol/L Chloride (98-107) mmol/L Carbon Dioxide (22-30) mmol/L BUN (7-17) mg/dL Creatinine (0.52-1.04) mg/dL Glucose (74-99) mg/dL POC Glucose (mg/dL) 156 H (75-99) mg/dL Calcium (8.4-10.2) mg/dL Creatine Kinase (30-135) U/L Total Protein (6.3-8.2) g/dL Albumin (3.5-5.0) g/dL Urine Appearance (Clear) Urine Protein (Negative) Urine Blood (Negative) Urine Nitrite (Negative) Ur Leukocyte Esterase (Negative) Urine RBC (0-5) /hpf Urine WBC (0-5) /hpf Urine Bacteria (None) /hpf Hyaline Casts (0-2) /lpf Urine Mucus (None) /hpf Urine Yeast (Budding) (None) /hpf Microbiology - Last 24 Hours (Table) 12/30/20 14:23 Urine Culture - Preliminary Urine,Clean Catch
--- NOTE | 2020-12-31 15:57 | PN ---
PROGRESS NOTE DATE OF SERVICE: 12/31/2020. This 65-year-old woman was admitted with COPD acute exacerbation, acute hypoxic respiratory failure and possible sepsis is being closely monitored. The patient started on broad spectrum IV antibiotics as well as some intensive bronchodilator treatments and IV steroids. The patient has been to rehab recently. The 2D echo with Doppler showed ejection fraction about 60% to 65% and mild valvular abnormalities. Dr. Goodman is following the patient closely. The hemoglobin is 7.2 today, which was 7.6 on admission, gradually diminished from 12.1 as of August last year. Sodium is 134, creatinine is 1.98. UA showed significant abnormalities, cultures are negative. The patient has been started on empiric antibiotics with Maxipime. PAST MEDICAL HISTORY: Reviewed. REVIEW OF SYSTEMS: CARDIOVASCULAR SYSTEM: No angina. RESPIRATORY SYSTEM: As mentioned earlier. GI: As mentioned earlier. : As mentioned earlier. NERVOUS SYSTEM: Diffusely weak. CURRENT MEDICATIONS: Current medications are reviewed and include Tylenol, [place], DuoNeb, Pulmicort, Maxipime, Lasix. Doses are reviewed. PHYSICAL EXAMINATION: Patient is alert and oriented x3. Pulse 91, blood pressure 89/49, respirations 16, temperature normal, pulse ox 98% on 8 L. HEENT: Conjunctivae normal. NECK: No jugular venous distention. CARDIOVASCULAR: S1, S2 muffled. RESPIRATORY: Breath sounds diminished at the bases. Bilateral scattered rhonchi and crackles. ABDOMEN: Soft, nontender. LEGS: No edema. No swelling. NERVOUS SYSTEM: No focal deficits. LABS: WBC 8.8, hemoglobin 7.2, sodium 134, creatinine is 1.98. ASSESSMENT: 1. Chronic obstructive pulmonary disease acute exacerbation with acute purulent tracheobronchitis with acute hypoxic respiratory failure with possible severe sepsis, present on admission. 2. Hypotension secondary to sepsis. 3. Hyponatremia. 4. Acute renal failure, acute tubular necrosis, present on admission. 5. Chronic kidney disease, stage 3, baseline. 6. Increased WBC. 7. Anemia, normocytic anemia of chronic disease. 8. History of deep vein thrombosis. 9. Hypertension. 10.History of pneumonia. 11.History of rheumatoid arthritis. 12.History of colitis. 13.History of osteopenia. 14.Chronic hypoxic respiratory failure. 15.Appendectomy. 16.History of bowel resection. 17.History of degenerative joint disease. 18.History attention deficit disorder, attention deficit hyperactivity disorder. 19.History of anxiety disorder. 20.Remote history of nicotine dependence. 21.Obesity with body mass index of 34. 22.Gait dysfunction. RECOMMENDATIONS AND DISCUSSION: I recommend to continue current medication, continue symptomatic treatment. Otherwise, patient on broad spectrum IV antibiotics, bronchodilators. Continue the rest of medications including steroids. Monitor blood sugars closely. Follow the cultures. Closely follow with Pulmonary and Infectious Disease. Guarded prognosis because of multiple complex medical issues. Further recommendations to follow. MMODL / IJN: [id number] /
[2020-12-31 16:35] LABS: Glucose,Whole Blood 140 mg/dL (75-99)
[2020-12-31] MEDS: MELATONIN 3 MG TABLET PO SCH (19:59)
[2020-12-31 20:19] LABS: Glucose,Whole Blood 192 mg/dL (75-99)
[2020-12-31] MEDS: FLUCONAZOLE IN NACL,ISO-OSM 100 MG in SALINE 1 50ML.BAG IVPB SCH (20:20)
[2020-12-31] MEDS: MONTELUKAST 10 MG TAB PO SCH (20:20)
[2020-12-31] MEDS: FUROSEMIDE 10 MG/ML 4 ML VIAL IV SCH (20:20)
[2020-12-31] MEDS: CEFEPIME 1 GM in SODIUM CHLORIDE 0.9% 50 ML IVPB SCH (22:37)
[2021-01-01] MEDS: IPRATROPIUM-ALBUTEROL 3 ML NEB INHALATION SCH ×6 (00:16→19:30)
[2021-01-01 06:15] LABS: Glucose,Whole Blood 212 mg/dL (75-99)
[2021-01-01 06:56] LABS: Glucose,Whole Blood 98 mg/dL (75-99)
[2021-01-01] MEDS: PANTOPRAZOLE 40 MG TABLET PO SCH (07:04)
[2021-01-01] MEDS: methylPREDNISolone SOD SUCCI 125 MG/2 ML VIAL IV SCH ×4 (07:04→23:09)
[2021-01-01] MEDS: GABAPENTIN 100 MG CAP PO SCH ×3 (07:04→19:00)
[2021-01-01] MEDS: MORPHINE SULFATE ER 15 MG TABLET PO SCH ×2 (07:04→19:00)
[2021-01-01] MEDS: CHOLECALCIFEROL 25 MCG (1000 IU) TABLET PO SCH (07:05)
[2021-01-01] MEDS: metOLazone 2.5 MG TAB PO SCH (07:07)
[2021-01-01] MEDS: BUDESONIDE 1 MG/2 ML NEBU INHALATION SCH ×2 (07:11→19:30)
[2021-01-01] MEDS: FORMOTEROL FUMARATE 20 MCG/2 ML NEBU INHALATION SCH ×2 (07:11→19:46)
[2021-01-01] MEDS: INSULIN ASPART (NovoLOG) 100 UNIT/ML VIAL SQ SCH ×4 (07:24→20:22)
[2021-01-01 07:36] LABS: Calcium 8.2 mg/dL (8.4-10.2)
[2021-01-01] MEDS: HEPARIN SODIUM,PORCINE 5,000 UNIT/ML 1 ML VIAL SQ SCH ×2 (07:54→20:22)
--- NOTE | 2021-01-01 07:54 | XR ---
EXAMINATION TYPE: XR chest 1V portable DATE OF EXAM: 01/01/2021 COMPARISON: Chest x-ray 12/30/2020 HISTORY: Shortness of breath TECHNIQUE: Single frontal view of the chest is obtained. FINDINGS: There is no focal air space opacity, pleural effusion, or pneumothorax seen. Some minimal patchy basilar density is noted. The cardiac silhouette size is stable, heart is enlarged, there are overlying artifacts. Aorta is dense. The osseous structures are intact. IMPRESSION: Probable basilar atelectasis. Cardiomegaly. Patient is rotated.
[2021-01-01] MEDS: FUROSEMIDE 10 MG/ML 4 ML VIAL IV SCH ×2 (07:55→20:22)
[2021-01-01] MEDS: MULTIVITAMINS, THERA 1 EACH TAB PO SCH (07:55)
[2021-01-01] MEDS: POTASSIUM CHLORIDE ER 10 MEQ TAB.ER.PRT PO SCH (07:55)
[2021-01-01] MEDS: LORATADINE 10 MG TAB PO SCH (07:55)
[2021-01-01] MEDS: MAGNESIUM OXIDE 400 MG TAB PO SCH (07:55)
[2021-01-01] MEDS: THEOPHYLLINE 24 HOUR 400 MG CAP.ER.24H PO SCH (07:56)
[2021-01-01] MEDS: CEFEPIME 1 GM in SODIUM CHLORIDE 0.9% 50 ML IVPB SCH ×2 (07:56→20:23)
[2021-01-01] MEDS: FLUTICASONE 50MCG/SPRAY NASAL 16GM EA NOSTRIL SCH ×2 (07:57→20:22)
[2021-01-01 08:20] LABS: Anisocytosis Slight; HCT 23.1 % (34.0-46.0); Hypochromasia Marked; MCH 26.7 pg (25.0-35.0); MCHC 30.1 g/dL (31.0-37.0); MCV 88.7 fL (80.0-100.0); Platelet Count 377 k/uL (150-450); Poikilocytosis Slight; RBC 2.61 m/uL (3.80-5.40); RDW 17.1 % (11.5-15.5)
[2021-01-01 10:07] LABS: Band Neutrophils % 1 %; Lymphocytes # (M) 0.35 k/uL (1.0-4.8); Monocytes # (M) 0.23 k/uL (0-1.0); Neutrophils % (M) 95 %; Nucleated Red Blood Cells 1 /100 WBC (0-0); Total Cells Counted 200
[2021-01-01 10:08] LABS: WBC 11.6 k/uL (3.8-10.6)
[2021-01-01 10:10] LABS: Polychromasia Present; Tear Drop Cells Present
[2021-01-01 11:32] LABS: Glucose,Whole Blood 163 mg/dL (75-99)
[2021-01-01] MEDS: LEVOFLOXACIN 250MG-D5W PMX 250 MG in DEXTROSE/WATER 1 50ML.BAG IVPB SCH (11:42)
--- NOTE | 2021-01-01 11:50 | P.PN ---
Subjective Progress Note Date: 01/01/21 65-year-old female patient with advanced COPD, evaluated, listed and subsequent ly taken off lung transplantation as the patient was becoming progressively more debilitated and she was not found to be a good candidate for his mentation. trasnsplant comes into the hospital because of worsening shortness of breath a few days duration. No chest pain. No pleurisy. No hemoptysis. a she also had some yellowish sputum production and fever with a temperature of 103.5. She came into the emergency department because of these symptoms COVID 19 testing was negative. The chest x-ray showed COPD without any acute abnormalities. H . She is known to have an FEV1 of 27% of predicted and she has chronic hypoxic respiratory failure admitted on oxygen at 2 L per minute nasal cannula. She has other comorbidities including RA, hypertension, and previous history of vulvar cancer. She has been maintained on a combination of Perforomist and Pulmicort nebulized treatments twice today and Yupelri nebulized treatments in addition to albuterol updrafts [id number] has had multiple hospitalizations for COPD exacerbation. She is maintained on prednisone 2.5 mg on a daily basis and she also takes theophylline 400 mg by mouth daily. He had noted the patient's last hospitalization [facility] was in October 2020. Following that she was hospitalized again at [facility] for another COPD exacerbation and following that she was transferred to [facility] she also had developed increased swelling in lower extremities and the skin over the left foot has blisters because of the excessive edema. She currently has a Altamirano catheter in place. His taken diuretics in the form of oral Lasix at the [facility]. She was taken Lasix 40 mg by mouth daily and Zaroxolyn 2.5 mg by mouth daily. 01/01/2021 the patient is diuresing adequately and she is responding to the diuretics. She is feeling slightly less short of breath compared to yesterday. I have on Lasix 40 mg IV she'll 12 hours and the patient is also on bronchodilators and systemic steroids. Oxygen levels have been reduced down to 5 L of oxygen by nasal cannula. She is tolerating her diet. No nausea. No vomiting. No diarrhea. No abdominal pain. Fluid balance is been negative and the patient has lost weight and currently she is waiting 77 kg. Urine culture is positive for gram-negative bacillus and the patient is currently on IV cefepime and Levaquin and we broadened antibiotic coverage and the patient was in a jail prior to her coming to us to the hospital. Objective - Vital Signs Vital signs: Vital Signs Temp 98.0 F 01/01/21 07:53 Pulse 106 H 01/01/21 11:21 Resp 22 01/01/21 07:53 BP 104/53 01/01/21 07:53 Pulse Ox 94 L 01/01/21 07:53 Intake & Output 12/31/20 01/01/21 01/01/21 18:59 06:59 18:59 Intake Total 1320 120 Output Total 575 400 Balance 745 -400 120 Weight 77 kg Intake: Oral 1320 120 Output: Urine 575 400 Other: Voiding Method Indwelling Catheter Indwelling Catheter Indwelling Catheter - Exam GENERAL EXAM: Alert, very pleasant, 65-year-old white female, on 5 L of oxygen with pulse ox of 95% comfortable in no apparent distress. HEAD: Normocephalic/atraumatic. EYES: Normal reaction of pupils, equal size. Conjunctiva pink, sclera white. NOSE: Clear with pink turbinates. THROAT: No erythema or exudates. NECK: No masses, no JVD, no thyroid enlargement, no adenopathy. CHEST: No chest wall deformity. Symmetrical expansion. LUNGS: Equal air entry with a few scattered wheezes, and the patient has marked diminished breath sounds bilaterally. CVS: Regular rate and rhythm, normal S1 and S2, no gallops, no murmurs, no rubs ABDOMEN: Soft, nontender. No hepatosplenomegaly, normal bowel sounds, no guarding or rigidity. EXTREMITIES: No clubbing, increased edema lower extremities bilaterally, no cyanosis, 2+ pulses and upper and lower extremities. MUSCULOSKELETAL: Muscle strength and tone normal. SPINE: No scoliosis or deformity SKIN: No rashes, skin blistering vesicle formation over the anterior aspect of the left foot CENTRAL NERVOUS SYSTEM: Alert and oriented -3. No focal deficits, tone is normal in all 4 extremities. PSYCHIATRIC: Alert and oriented -3. Appropriate affect. Intact judgment and insight. - Labs CBC & Chem 7: 01/01/21 07:05 01/01/21 07:05 Labs: Abnormal Lab Results - Last 24 Hours (Table) 12/31/20 12/31/2012/31/21 Range/Units 06:38 16:33 20:18 WBC (3.8-10.6) k/uL RBC (3.80-5.40) m/uL Hgb (11.4-16.0) gm/dL Hct (34.0-46.0) % MCHC (31.0-37.0) g/dL RDW (11.5-15.5) % Neutrophils # (Manual) (1.3-7.7) k/uL Lymphocytes # (Manual) (1.0-4.8) k/uL Nucleated RBCs (0-0) /100 WBC Sodium (137-145) mmol/L Chloride (98-107) mmol/L Carbon Dioxide (22-30) mmol/L BUN (7-17) mg/dL Creatinine (0.52-1.04) mg/dL Glucose (74-99) mg/dL POC Glucose (mg/dL) 140 H 192 H (75-99) mg/dL Calcium (8.4-10.2) mg/dL Procalcitonin 0.55 H (0.02-0.09) ng/mL 01/01/21 01/01/21 01/01/21 Range/Units 06:13 07:05 07:05 WBC 11.6 H (3.8-10.6) k/uL RBC 2.61 L (3.80-5.40) m/uL Hgb 7.0 L (11.4-16.0) gm/dL Hct 23.1 L (34.0-46.0) % MCHC 30.1 L (31.0-37.0) g/dL RDW 17.1 H (11.5-15.5) % Neutrophils # (Manual) 11.10 H (1.3-7.7) k/uL Lymphocytes # (Manual) 0.35 L (1.0-4.8) k/uL Nucleated RBCs 1 H (0-0) /100 WBC Sodium 132 L (137-145) mmol/L Chloride 93 L (98-107) mmol/L Carbon Dioxide 34 H (22-30) mmol/L BUN 37 H (7-17) mg/dL Creatinine 1.35 H (0.52-1.04) mg/dL Glucose 176 H (74-99) mg/dL POC Glucose (mg/dL) 212 H (75-99) mg/dL Calcium 8.2 L (8.4-10.2) mg/dL Procalcitonin (0.02-0.09) ng/mL 01/01/21 Range/Units 11:31 WBC (3.8-10.6) k/uL RBC (3.80-5.40) m/uL Hgb (11.4-16.0) gm/dL Hct (34.0-46.0) % MCHC (31.0-37.0) g/dL RDW (11.5-15.5) % Neutrophils # (Manual) (1.3-7.7) k/uL Lymphocytes # (Manual) (1.0-4.8) k/uL Nucleated RBCs (0-0) /100 WBC Sodium (137-145) mmol/L Chloride (98-107) mmol/L Carbon Dioxide (22-30) mmol/L BUN (7-17) mg/dL Creatinine (0.52-1.04) mg/dL Glucose (74-99) mg/dL POC Glucose (mg/dL) 163 H (75-99) mg/dL Calcium (8.4-10.2) mg/dL Procalcitonin (0.02-0.09) ng/mL Microbiology - Last 24 Hours (Table) 12/31/20 08:30 Gram Stain - Preliminary Sputum Sputum Culture - Preliminary 12/30/20 14:23 Urine Culture - Preliminary Urine,Clean Catch Gram Neg Bacilli 12/30/20 13:41 Blood Culture - Preliminary Blood No Growth after 24 hours 12/30/20 13:56 Blood Culture - Preliminary Blood No Growth after 24 hours Assessment and Plan Plan: 1 acute COPD exacerbation secondary hypoxic respiratory failure. The patient is currently up to 5 L about by nasal cannula. She was febrile at time of admission and the patient was also having worsening shortness of breath and her symptoms were typical of COPD exacerbation. she is responding to the current treatment oxygenation is improved compared to yesterday. Still has significant amount of edema in lower extremities on Lasix and Zaroxolyn combination. Urine is positive for gram-negative bacillus. 2 advanced COPD with an FEV1 of 27% of predicted with significant limitation exercise capacity and chronic dyspnea and respiratory failure. The patient is seeking lung transportation she is off the transplant program at [facility] 3 chronic hypoxic respiratory failure maintained on oxygen at 3 L per minute nasal cannula 4 remote history of DVT 5 hypertension 6 history of rheumatoid arthritis 7 history of chronic back pain 8 restless leg syndrome 9 history of right colectomy with subsequent wound dehiscence and reclosure for a small bowel obstruction. 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 15 gram-negative UTI Plan DuoNeb nebulized treatments around the clock Perforomist and Pulmicort neb last 2 minutes twice a day Continue Levaquin 500 mg by mouth daily and cefepime 2 g every 12 hours IV Lasix 40 every 12 hours along with Zaroxolyn 2.5 mg by mouth twice a day 2-D echocardiogram pro calcitonin level, currently at 0.55 ProBNP level, the level was 304 Diflucan 100 mg by mouth daily for oropharyngeal candidiasis She is currently off the transplantation list. I spoke about her case with the transplant team at [facility]. Urine culturesis positive for gram-negative bacillus Sputum cultures We will follow
[2021-01-01 16:40] LABS: Glucose,Whole Blood 134 mg/dL (75-99)
[2021-01-01] MEDS: FLUCONAZOLE 100 MG TAB PO SCH (18:01)
--- NOTE | 2021-01-01 18:49 | PN ---
PROGRESS NOTE DATE OF SERVICE: 01/01/2021 This 65-year-old woman who was admitted with COPD exacerbation as well as the tracheobronchitis is on bronchodilators. The patient also had possible sepsis. The most recent chest x-ray which was reviewed personally by me showed some increased bronchovascular markings and no definite evidence of pneumonia. Sputum culture showed Erica albicans and urine culture showed gram-negative bacilli. Past medical history reviewed. REVIEW OF SYSTEMS: CARDIOVASCULAR SYSTEM: No angina. RESPIRATION as mentioned earlier. GI: As mentioned earlier. : No dysuria. NERVOUS SYSTEM: No numbness or weakness. CURRENT MEDICATIONS: Reviewed and include: Tylenol, [place], Pulmicort, Xanax, Cefepime, Diflucan, Perforomist and Neurontin. PHYSICAL EXAMINATION: Patient is alert, oriented x2. Pulse is 102, blood pressure 120/66, respiration 24, temperature normal, pulse ox 94% on 4 L. HEENT: Conjunctivae normal. NECK: No JVD. CARDIOVASCULAR: S1, S2 muffled. RESPIRATORY SYSTEM: Breath sounds diminished at the bases. Bilateral scattered rhonchi and crackles. ABDOMEN: Soft, nontender. LEGS: No edema. No swelling. NERVOUS SYSTEM: Diffusely weak. LAB STUDIES: WBC 11.7, hemoglobin 7, sodium 132, creatinine is 1.35. ASSESSMENT: 1. Chronic obstructive pulmonary disease acute exacerbation with acute purulent tracheobronchitis with acute hypoxic respiratory failure with possible severe sepsis, present on admission. 2. Hypotension secondary to sepsis. 3. Erica albicans from the sputum and also gram-negative bacilli from the urine. 4. Anemia undetermined etiology. 5. Hyponatremia. 6. Acute renal failure with acute tubular necrosis, present on admission. 7. Chronic kidney stage 3 baseline. 8. Increased WBC. 9. History of deep vein thrombosis. 10.Hypertension. 11.History of pneumonia. 12.History of rheumatoid arthritis. 13.History of colitis. 14.History of osteopenia. 15.History of chronic hypoxic respiratory failure. 16.History of appendectomy. 17.History of bowel resection. 18.History of degenerative joint disease. 19.History of attention-deficit disorder/ attention-deficit/hyperactivity disorder. 20.History of anxiety disorder. 21.Remote history of nicotine dependence. 22.Obesity with body mass index of 34. 23.Gait dysfunction. RECOMMENDATIONS AND DISCUSSION: Recommend to continue current medication, management and symptomatic treatment. Otherwise continue the broad-spectrum IV antibiotics. Diflucan has been initiated. The patient had hemoglobin of 7. Exact etiology is unknown at this time. I would recommend one unit of transfusion cautiously followed by Rex. I would also recommend stool OB also. In case it is positive and hemoglobin is unstable, I would recommend full GI workup as well. Overall prognosis guarded because of multiple complex medical conditions. MMODL / IJN: [id number] /
[2021-01-01 20:14] LABS: Glucose,Whole Blood 179 mg/dL (75-99)
[2021-01-01] MEDS: MONTELUKAST 10 MG TAB PO SCH (20:21)
[2021-01-01] MEDS: MELATONIN 3 MG TABLET PO SCH (20:21)
[2021-01-01] MEDS: ALPRAZolam 0.25 MG TAB PO PRN (21:06)
[2021-01-02] MEDS: IPRATROPIUM-ALBUTEROL 3 ML NEB INHALATION SCH ×7 (00:16→23:49)
[2021-01-02] MEDS ORDERED: FUROSEMIDE 10 MG/ML 2 ML VIAL IV ONE (01:07)
[2021-01-02 06:10] LABS: Glucose,Whole Blood 190 mg/dL (75-99)
[2021-01-02] MEDS: metOLazone 2.5 MG TAB PO SCH (06:23)
[2021-01-02] MEDS: CHOLECALCIFEROL 25 MCG (1000 IU) TABLET PO SCH (06:23)
[2021-01-02] MEDS: GABAPENTIN 100 MG CAP PO SCH ×3 (06:23→19:51)
[2021-01-02] MEDS: INSULIN ASPART (NovoLOG) 100 UNIT/ML VIAL SQ SCH ×4 (06:23→21:11)
[2021-01-02] MEDS: PANTOPRAZOLE 40 MG TABLET PO SCH (06:23)
[2021-01-02] MEDS: methylPREDNISolone SOD SUCCI 125 MG/2 ML VIAL IV SCH ×3 (06:24→17:35)
[2021-01-02] MEDS: MORPHINE SULFATE ER 15 MG TABLET PO SCH ×2 (07:43→19:51)
[2021-01-02] MEDS: BUDESONIDE 1 MG/2 ML NEBU INHALATION SCH ×2 (07:46→19:24)
[2021-01-02] MEDS: FORMOTEROL FUMARATE 20 MCG/2 ML NEBU INHALATION SCH ×2 (07:46→19:24)
[2021-01-02] MEDS: FUROSEMIDE 10 MG/ML 4 ML VIAL IV SCH ×2 (08:20→20:10)
[2021-01-02] MEDS: POTASSIUM CHLORIDE ER 10 MEQ TAB.ER.PRT PO SCH (08:20)
[2021-01-02] MEDS: MULTIVITAMINS, THERA 1 EACH TAB PO SCH (08:20)
[2021-01-02] MEDS: LORATADINE 10 MG TAB PO SCH (08:21)
[2021-01-02] MEDS: THEOPHYLLINE 24 HOUR 400 MG CAP.ER.24H PO SCH (08:21)
[2021-01-02] MEDS: CEFEPIME 1 GM in SODIUM CHLORIDE 0.9% 50 ML IVPB SCH ×2 (08:21→20:10)
[2021-01-02] MEDS: MAGNESIUM OXIDE 400 MG TAB PO SCH (08:21)
[2021-01-02] MEDS: HEPARIN SODIUM,PORCINE 5,000 UNIT/ML 1 ML VIAL SQ SCH ×2 (08:21→20:10)
[2021-01-02] MEDS: FLUTICASONE 50MCG/SPRAY NASAL 16GM EA NOSTRIL SCH ×2 (08:22→20:10)
[2021-01-02 09:09] LABS: Calcium 8.7 mg/dL (8.4-10.2); Potassium 3.1 mmol/L (3.5-5.1)
[2021-01-02] MEDS ORDERED: Potassium Replacement Protocol 1 EACH MISC MISCELLANE PRN ×2 (09:27→15:25)
[2021-01-02 09:35] LABS: Anisocytosis Slight; Basophils % (A) 0 %; Eosinophils % (A) 0 %; HCT 30.6 % (34.0-46.0); Hypochromasia Marked; Lymphocytes # (A) 0.4 k/uL (1.0-4.8); Lymphocytes % (A) 4 %; MCHC 30.8 g/dL (31.0-37.0); MCV 87.7 fL (80.0-100.0); Mean Platelet Volume 7.3; Monocytes # (A) 0.3 k/uL (0-1.0); Monocytes % (A) 3 %; Neutrophils # (A) 9.9 k/uL (1.3-7.7); Neutrophils % (A) 93 %; Platelet Count 417 k/uL (150-450); Poikilocytosis Slight; RBC 3.49 m/uL (3.80-5.40); RDW 16.7 % (11.5-15.5); WBC 10.6 k/uL (3.8-10.6)
[2021-01-02 09:40] LABS: HGB 9.4 gm/dL (11.4-16.0)
--- NOTE | 2021-01-02 09:46 | P.PN ---
Subjective Progress Note Date: 01/02/21 65-year-old female patient with advanced COPD, evaluated, listed and subsequent ly taken off lung transplantation as the patient was becoming progressively more debilitated and she was not found to be a good candidate for his mentation. trasnsplant comes into the hospital because of worsening shortness of breath a few days duration. No chest pain. No pleurisy. No hemoptysis. a she also had some yellowish sputum production and fever with a temperature of 103.5. She came into the emergency department because of these symptoms COVID 19 testing was negative. The chest x-ray showed COPD without any acute abnormalities. H . She is known to have an FEV1 of 27% of predicted and she has chronic hypoxic respiratory failure admitted on oxygen at 2 L per minute nasal cannula. She has other comorbidities including RA, hypertension, and previous history of vulvar cancer. She has been maintained on a combination of Perforomist and Pulmicort nebulized treatments twice today and Yupelri nebulized treatments in addition to albuterol updrafts [id number] has had multiple hospitalizations for COPD exacerbation. She is maintained on prednisone 2.5 mg on a daily basis and she also takes theophylline 400 mg by mouth daily. He had noted the patient's last hospitalization [facility] was in October 2020. Following that she was hospitalized again at [facility] for another COPD exacerbation and following that she was transferred to [facility] she also had developed increased swelling in lower extremities and the skin over the left foot has blisters because of the excessive edema. She currently has a Altamirano catheter in place. His taken diuretics in the form of oral Lasix at the [facility]. She was taken Lasix 40 mg by mouth daily and Zaroxolyn 2.5 mg by mouth daily. 01/01/2021 the patient is diuresing adequately and she is responding to the diuretics. She is feeling slightly less short of breath compared to yesterday. I have on Lasix 40 mg IV she'll 12 hours and the patient is also on bronchodilators and systemic steroids. Oxygen levels have been reduced down to 5 L of oxygen by nasal cannula. She is tolerating her diet. No nausea. No vomiting. No diarrhea. No abdominal pain. Fluid balance is been negative and the patient has lost weight and currently she is waiting 77 kg. Urine culture is positive for gram-negative bacillus and the patient is currently on IV cefepime and Levaquin and we broadened antibiotic coverage and the patient was in a skilled nursing prior to her coming to us to the hospital. 01/02/2021, the patient continues to be on diuretics and she is diuresing aggressively while being on Lasix 40 mg every 12 hours pH is down to 3 visible action by nasal cannula. Her BUN is at 39 with a creatinine of 1.1 and her renal function is improved. Potassium level is at 3.1 which is essentially due to diuresis diuresis and the patient's bicarb level is 32. Fluid balance has been negative over the past 48 hours and the patient is producing another 2.5 L of negative fluid balance over the past 24 hours. Urine culture was positive for gram-negative bacillus and the final cultures came back positive for enteral caucus faecalis and Klebsiella and the cultures and sensitivities were noted. The patient is currently on a combination of cefepime and Levaquin. And based on the sensitivity, antibiotic coverage is adequate for now. She is afebrile. She is hemodynamically stable. No fever. No leukocytosis. The patient's rhythm is irregular today and there is suspicion that she may be in atrial fibrillation. We'll follow a 12-lead EKG to rule out the possibility of atrial fibrillation. Potassium level needs to be replaced as the level is at 3.1. Objective - Vital Signs Vital signs: Vital Signs Temp 98.1 F 01/02/21 08:00 Pulse 132 H 01/02/21 08:14 Resp 24 01/02/21 08:00 BP 122/66 01/02/21 08:00 Pulse Ox 93 L 01/02/21 08:33 Intake & Output 01/01/21 01/02/21 01/02/21 18:59 06:59 18:59 Intake Total 480 310 Output Total 600 2775 Balance -120 -2465 Weight 78 kg Intake: Oral 480 Blood Product 310 Rc As-1 Unit 310 [id number] Output: Urine 600 2775 Other: Voiding Method Indwelling Catheter Indwelling Catheter - Exam GENERAL EXAM: Alert, very pleasant, 65-year-old white female, on 3 L of oxygen with pulse ox of 95% comfortable in no apparent distress. HEAD: Normocephalic/atraumatic. EYES: Normal reaction of pupils, equal size. Conjunctiva pink, sclera white. NOSE: Clear with pink turbinates. THROAT: No erythema or exudates. NECK: No masses, no JVD, no thyroid enlargement, no adenopathy. CHEST: No chest wall deformity. Symmetrical expansion. LUNGS: Equal air entry with a few scattered wheezes, and the patient has marked diminished breath sounds bilaterally. CVS: Regular rate and rhythm, normal S1 and S2, no gallops, no murmurs, no rubs ABDOMEN: Soft, nontender. No hepatosplenomegaly, normal bowel sounds, no guarding or rigidity. EXTREMITIES: No clubbing, increased edema lower extremities bilaterally, no cyanosis, 2+ pulses and upper and lower extremities. MUSCULOSKELETAL: Muscle strength and tone normal. SPINE: No scoliosis or deformity SKIN: No rashes, skin blistering vesicle formation over the anterior aspect of the left foot CENTRAL NERVOUS SYSTEM: Alert and oriented -3. No focal deficits, tone is normal in all 4 extremities. PSYCHIATRIC: Alert and oriented -3. Appropriate affect. Intact judgment and insight. - Labs CBC & Chem 7: 01/01/21 07:05 01/02/21 08:20 Labs: Abnormal Lab Results - Last 24 Hours (Table) 01/01/21 01/01/21 01/01/21 Range/Units 07:05 11:31 16:38 WBC 11.6 H (3.8-10.6) k/uL Neutrophils # (Manual) 11.10 H (1.3-7.7) k/uL Lymphocytes # (Manual) 0.35 L (1.0-4.8) k/uL Nucleated RBCs 1 H (0-0) /100 WBC Sodium (137-145) mmol/L Potassium (3.5-5.1) mmol/L Chloride (98-107) mmol/L Carbon Dioxide (22-30) mmol/L BUN (7-17) mg/dL Creatinine (0.52-1.04) mg/dL Glucose (74-99) mg/dL POC Glucose (mg/dL) 163 H 134 H (75-99) mg/dL Crossmatch 01/01/21 01/01/21 01/02/21 Range/Units 17:25 20:13 06:09 WBC (3.8-10.6) k/uL Neutrophils # (Manual) (1.3-7.7) k/uL Lymphocytes # (Manual) (1.0-4.8) k/uL Nucleated RBCs (0-0) /100 WBC Sodium (137-145) mmol/L Potassium (3.5-5.1) mmol/L Chloride (98-107) mmol/L Carbon Dioxide (22-30) mmol/L BUN (7-17) mg/dL Creatinine (0.52-1.04) mg/dL Glucose (74-99) mg/dL POC Glucose (mg/dL) 179 H 190 H (75-99) mg/dL Crossmatch See Detail 01/02/21 Range/Units 08:20 WBC (3.8-10.6) k/uL Neutrophils # (Manual) (1.3-7.7) k/uL Lymphocytes # (Manual) (1.0-4.8) k/uL Nucleated RBCs (0-0) /100 WBC Sodium 135 L (137-145) mmol/L Potassium 3.1 L (3.5-5.1) mmol/L Chloride 92 L (98-107) mmol/L Carbon Dioxide 32 H (22-30) mmol/L BUN 39 H (7-17) mg/dL Creatinine 1.12 H (0.52-1.04) mg/dL Glucose 216 H (74-99) mg/dL POC Glucose (mg/dL) (75-99) mg/dL Crossmatch Microbiology - Last 24 Hours (Table) 12/31/20 08:30 Gram Stain - Final Sputum Sputum Culture - Final Erica albicans 12/30/20 14:23 Urine Culture - Final Urine,Clean Catch Klebsiella pneumoniae Enterococcus faecalis 12/30/20 13:56 Blood Culture - Preliminary Blood No Growth after 48 hours 12/30/20 13:41 Blood Culture - Preliminary Blood No Growth after 48 hours 12/31/20 23:22 Urine Culture - Preliminary Urine,Catheterized Assessment and Plan Plan: 1 acute COPD exacerbation secondary hypoxic respiratory failure. The patient is currently up to 3 L about by nasal cannula. She was febrile at time of admission and the patient was also having worsening shortness of breath and her symptoms were typical of COPD exacerbation. She has significant fluid overload and she also had a urinary tract infection and the cultures indicated Saline enterococcus. She is currently on antibiotics. She is also on diuretics. she is responding to the current treatment oxygenation is improved compared to yesterday. Still has significant amount of edema in lower extremities on Lasix and Zaroxolyn combination. 2 advanced COPD with an FEV1 of 27% of predicted with significant limitation exercise capacity and chronic dyspnea and respiratory failure. The patient is seeking lung transportation she is off the transplant program at [facility] 3 chronic hypoxic respiratory failure maintained on oxygen at 3 L per minute nasal cannula 4 remote history of DVT 5 hypertension 6 history of rheumatoid arthritis 7 history of chronic back pain 8 restless leg syndrome 9 history of right colectomy with subsequent wound dehiscence and reclosure for a small bowel obstruction. 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 15 gram-negative UTI monitor cultures indicating Klebsiella and enterococcus. Plan DuoNeb nebulized treatments around the clock Perforomist and Pulmicort neb last 2 minutes twice a day Continue cefepime 2 g every 12 hours days and sensitivities and stop the Levaquin for now IV Lasix 40 every 12 hours along with Zaroxolyn 2.5 mg by mouth twice a day 2-D echocardiogram was done and it showed a preserved LV function with an ejection fraction of 6065%, pulmonary hypertension was expected and this is secondary pulmonary hypertension due to over chronic hypoxemia and COPD. pro calcitonin level, currently at 0.55 ProBNP level, the level was 304 Diflucan 100 mg by mouth daily for oropharyngeal candidiasis She is currently off the transplantation list. I spoke about her case with the transplant team at [facility]. Replace potassium and magnesium level. The patient's potassium level is down to 3.1 due to diuresis 12-lead EKG to rule out the possibility of atrial fibrillation. Theophylline level and make sure the patient is not toxic on her theophylline We will follow
[2021-01-02 09:53] LABS: Magnesium 1.9 mg/dL (1.6-2.3)
[2021-01-02] MEDS: POTASSIUM CHLORIDE ER 20 MEQ TAB.ER PO SCH ×4 (10:22→17:35)
[2021-01-02 10:27] LABS: Theophylline 15.5 ug/mL
[2021-01-02] MEDS: LEVOFLOXACIN 250MG-D5W PMX 250 MG in DEXTROSE/WATER 1 50ML.BAG IVPB SCH (10:38)
[2021-01-02] MEDS ORDERED: MAGNESIUM SULFATE-D5W PMX 1 GM in DEXTROSE/WATER 1 100ML.BAG IVPB ONE (11:01)
[2021-01-02 11:58] LABS: Glucose,Whole Blood 210 mg/dL (75-99)
[2021-01-02] MEDS: METOPROLOL TARTRATE 12.5 MG TAB PO SCH ×2 (15:31→20:12)
[2021-01-02] MEDS: NIFEdipine XL 90 MG TAB.ER.24 PO SCH (15:31)
[2021-01-02 16:54] LABS: Glucose,Whole Blood 151 mg/dL (75-99)
[2021-01-02] MEDS: FLUCONAZOLE 100 MG TAB PO SCH (17:35)
--- NOTE | 2021-01-02 18:04 | PN ---
PROGRESS NOTE DATE OF SERVICE: 01/02/2021 This 65-year-old woman was admitted with COPD exacerbation as well as possible purulent tracheobronchitis with possible sepsis, is being closely monitored. Patient developed atrial fibrillation with fast ventricular rate. Patient is not feeling well at this time. A 2D echo with Doppler read by Cardiology and done during this time of admission showed ejection fraction about 60 to 65% and minimal valvular abnormalities with moderate pulmonary hypertension. PAST MEDICAL HISTORY: Reviewed. REVIEW OF SYSTEMS: CARDIOVASCULAR: As mentioned earlier. RESPIRATORY: As mentioned earlier. GI: As mentioned earlier. : No dysuria. NERVOUS SYSTEM: No numbness, weakness. CURRENT MEDICATIONS: Reviewed and include: [place], Tylenol, Xanax, Pulmicort, Cefepime, Diflucan, Perforomist, Neurontin, doses reviewed. PHYSICAL EXAMINATION: Alert and oriented times three. Pulse 108, blood pressure 150/70, respiration 20. Temperature normal. Pulse ox 94% on 3 L. HEENT: Conjunctivae normal. NECK: No JVD. CARDIOVASCULAR system: S1, S2 tachycardic and irregular. RESPIRATIONS: Breath sounds diminished in the bases. Scattered rhonchi and crackles. Expiratory wheezing. ABDOMEN: Soft. Nontender. NERVOUS SYSTEM: Diffusely weak. LAB STUDIES: WBC 10.2, hemoglobin 10.4. Sodium 132, potassium 3.1, creatinine is 1.12. ASSESSMENT: 1. Chronic obstructive pulmonary disease acute exacerbation with acute purulent tracheobronchitis with acute hypoxic respiratory failure with possible severe sepsis, present on admission. 2. Hypotension secondary to sepsis, present on admission. 3. Erica albicans from the sputum as well as gram-negative bacilli in the urine, which is Klebsiella pneumonia and Enterococcus faecalis which is vancomycin sensitive. 4. Anemia of undetermined etiology. 5. Hyponatremia. 6. Acute renal failure with acute tubular necrosis, present on admission. 7. Chronic kidney disease stage III baseline. 8. Pulmonary hypertension. 9. Increased WBC. 10.History of deep vein thrombosis. 11.Hypertension. 12.History of pneumonia. 13.History of rheumatoid arthritis. 14.History of colitis. 15.History of osteopenia. 16.History of chronic hypoxic respiratory failure. 17.History of appendectomy. 18.History of bowel resection. 19.History of degenerative joint disease. 20.History of attention-deficit disorder/ attention-deficit/hyperactivity disorder. 21.History of anxiety disorder. 22.Remote history of nicotine dependence. 23.Obesity with body mass index of 34. 24.Gait dysfunction. RECOMMENDATIONS AND DISCUSSION: I recommend to continue current medications, management and symptomatic treatment. Continue broad-spectrum IV antibiotics. Closely follow with Infectious Disease and multiple consultants. Cardiology consultation. The patient is started on low-dose beta blockers. Continue to monitor. Guarded prognosis. Further recommendations to follow. MMODL / IJN: [id number] /
[2021-01-02] MEDS: MONTELUKAST 10 MG TAB PO SCH (20:10)
[2021-01-02 21:00] LABS: Glucose,Whole Blood 185 mg/dL (75-99)
[2021-01-02] MEDS: MELATONIN 3 MG TABLET PO SCH (21:11)
--- NOTE | 2021-01-02 22:41 | PN ---
PROGRESS NOTE DATE OF SERVICE: 01/02/2021 REASON FOR FOLLOWUP: Urinary tract infection. INTERVAL HISTORY: The patient is currently afebrile. Patient is breathing slightly comfortably. The patient denies having any chest pain. She continues to have a cough, not bringing up any sputum. No nausea, no vomiting. No abdominal pain or diarrhea. PHYSICAL EXAMINATION: Blood pressure 150/78 with a pulse of 108. Temperature is 98.1, 94% on 3 L nasal cannula. General description: The patient is a middle-aged female up in the bed in no distress. Respiratory system: Unlabored breathing with decreased intensity of breath sounds. No wheeze. HEART: S1, S2. Regular rate and rhythm. Abdomen soft, no tenderness. LABS: Hemoglobin is 9.1, white count 10.6, BUN of 29, creatinine 1.12. Urine showing Klebsiella and Enterococcus faecalis. Sputum was not done. DIAGNOSTIC IMPRESSION AND PLAN: Patient admitted to the hospital with fever likely for a urinary tract infection plus minus tracheobronchitis with urine showing Klebsiella and Enterococcus. Antibiotic will be adjusted to Unasyn to cover for pathogen and we will monitor clinical course closely. MMODL / IJN: [id number] /
[2021-01-03] MEDS: methylPREDNISolone SOD SUCCI 125 MG/2 ML VIAL IV SCH ×3 (00:12→12:26)
[2021-01-03] MEDS: AMPICILLIN-SULBACTAM 3 GM in SODIUM CHLORIDE 0.9% 100 ML IVPB SCH ×4 (00:12→20:34)
[2021-01-03] MEDS: IPRATROPIUM-ALBUTEROL 3 ML NEB INHALATION SCH ×6 (03:46→23:45)
[2021-01-03 06:05] LABS: Glucose,Whole Blood 216 mg/dL (75-99)
[2021-01-03] MEDS: GABAPENTIN 100 MG CAP PO SCH ×3 (06:41→18:20)
[2021-01-03] MEDS: MORPHINE SULFATE ER 15 MG TABLET PO SCH ×2 (06:41→18:20)
[2021-01-03] MEDS: metOLazone 2.5 MG TAB PO SCH (06:41)
[2021-01-03] MEDS: PANTOPRAZOLE 40 MG TABLET PO SCH (06:42)
[2021-01-03] MEDS: INSULIN ASPART (NovoLOG) 100 UNIT/ML VIAL SQ SCH ×4 (06:42→20:40)
[2021-01-03] MEDS: guaiFENesin SYRUP 100MG/5ML 200 MG/10 ML CUP PO PRN (06:44)
[2021-01-03] MEDS: CHOLECALCIFEROL 25 MCG (1000 IU) TABLET PO SCH (06:44)
[2021-01-03] MEDS: FORMOTEROL FUMARATE 20 MCG/2 ML NEBU INHALATION SCH ×2 (07:43→20:28)
[2021-01-03] MEDS: BUDESONIDE 1 MG/2 ML NEBU INHALATION SCH ×2 (07:43→20:28)
[2021-01-03] MEDS: FUROSEMIDE 10 MG/ML 4 ML VIAL IV SCH ×2 (09:11→20:34)
[2021-01-03] MEDS: THEOPHYLLINE 24 HOUR 400 MG CAP.ER.24H PO SCH (09:11)
[2021-01-03] MEDS: METOPROLOL TARTRATE 12.5 MG TAB PO SCH (09:11)
[2021-01-03] MEDS: FLUTICASONE 50MCG/SPRAY NASAL 16GM EA NOSTRIL SCH ×2 (09:11→20:40)
[2021-01-03] MEDS: MAGNESIUM OXIDE 400 MG TAB PO SCH (09:12)
[2021-01-03] MEDS: MULTIVITAMINS, THERA 1 EACH TAB PO SCH (09:12)
[2021-01-03] MEDS: POTASSIUM CHLORIDE ER 10 MEQ TAB.ER.PRT PO SCH (09:12)
[2021-01-03] MEDS: LORATADINE 10 MG TAB PO SCH (09:12)
[2021-01-03] MEDS: NIFEdipine XL 90 MG TAB.ER.24 PO SCH (09:12)
[2021-01-03] MEDS: HEPARIN SODIUM,PORCINE 5,000 UNIT/ML 1 ML VIAL SQ SCH ×2 (09:12→20:39)
[2021-01-03 10:06] LABS: Calcium 8.9 mg/dL (8.4-10.2); Magnesium 2.1 mg/dL (1.6-2.3)
[2021-01-03 10:24] LABS: Anisocytosis Slight; HCT 30.2 % (34.0-46.0); HGB 9.7 gm/dL (11.4-16.0); Hypochromasia Slight; MCH 28.1 pg (25.0-35.0); MCV 87.6 fL (80.0-100.0); Mean Platelet Volume 7.4; Platelet Count 443 k/uL (150-450); Poikilocytosis Slight; RBC 3.44 m/uL (3.80-5.40); RDW 16.8 % (11.5-15.5); WBC 11.4 k/uL (3.8-10.6)
[2021-01-03] MEDS: ALPRAZolam 0.25 MG TAB PO PRN (10:55)
[2021-01-03 11:41] LABS: Band Neutrophils % 2 %; Lymphocytes # (M) 0.11 k/uL (1.0-4.8); Metamyelocytes # (M) 0.11 k/uL (0); Metamyelocytes % 1 %; Monocytes # (M) 0.11 k/uL (0-1.0); Neutrophils % (M) 95 %; Nucleated Red Blood Cells 0 /100 WBC (0-0); Total Cells Counted 100
[2021-01-03 11:46] VITALS: BMI 34.0
[2021-01-03 12:00] LABS: Glucose,Whole Blood 204 mg/dL (75-99)
--- NOTE | 2021-01-03 13:17 | P.CRDCN ---
History of Present Illness Consult date: 01/03/21 History of present illness: HISTORY OF PRESENT ILLNESS: This is a 65-year-old female with a past medical history significant for COPD, DVT, hypertension, rheumatoid arthritis, home oxygen use, and previous nicotine dependence. Patient does not follow with a engineering project manager. We have been asked to see the patient in consultation for possible atrial fibrillation. Patient examined at the bedside. Patient is admitted to the hospital secondary to COPD exacerbation. patient denies chest pain or pressure. She reports mild shortness of breath. She is receiving IV steroids per pulmonary. She denies palpitations. Potassium 3.0. Magnesium 2.1. EKG reveals sinus tachycardia with PACs Chest xray probable basilar atelectasis. Cardiomegaly Laboratory data: WBC 11.4. Hemoglobin 9.7. Platelet count 443. Sodium 136. Potassium 3.0. BUN 48. Creatinine 1.09. BNP 304 Current home cardiac medications include Zaroxolyn 2.5 mg daily, nifedipine 90 mg daily, metoprolol tartrate 12.5 mg twice a day, losartan 50 mg daily and Lasix 40 mg daily Echocardiogram completed revealed ejection fraction 60-65%, trace to mild mitral regurgitation, mild tricuspid regurgitation, and moderate pulmonary hypertension REVIEW OF SYSTEMS: At the time of my exam: CONSTITUTIONAL: Denies fever or chills. HEENT: Denies blurred vision, vision changes, or eye pain. Denies hemoptysis CARDIOVASCULAR: Denies chest pain. Denies orthopnea. Denies PND. Denies palpitations RESPIRATORY: Reports mild shortness of breath. GASTROINTESTINAL: Denies abdominal pain. Denies nausea or vomiting. HEMATOLOGIC: Denies bleeding disorders. GENITOURINARY: Denies any blood in urine. SKIN: Denies pruitis. Denies rash. PHYSICAL EXAM: VITAL SIGNS: Reviewed. GENERAL: Well-developed in no acute distress. HEENT: Head is normocephalic. Pupils are equal, round. Sclerae anicteric. Mucous membranes of the mouth are moist. Neck supple. No JVD or thyromegaly LUNGS: Respirations even and unlabored. Lungs with expiratory wheezing bilaterally HEART: Regular rate and rhythm. S1 and S2 heard. ABDOMEN: Soft. Nondistended. Nontender. EXTREMITIES: Normal range of motion. No clubbing or cyanosis. Peripheral pulses intact. 1-2+ bilateral lower extremity edema NEUROLOGIC: Awake and alert. Oriented x 3. ASSESSMENT: Acute exacerbation of COPD Sinus tachycardia with PACs, atrial fibrillation ruled out Hypertension Chronic hypoxic respiratory failure, on home oxygen Hypokalemia Lower extremity edema PLAN: EKG was reviewed. Atrial fibrillation ruled out per Dr. Fournier Discontinue metoprolol and nifedipine Begin Verapamil 80 mg 3 times a day Replace potassium Continue IV steroids and IV Lasix per pulmonary Continue telemetry monitoring Further recommendations pending patient course Nurse practitioner note has been reviewed by physician. Signing provider agrees with the documented findings, assessment, and plan of care. Past Medical History Past Medical History: Cancer, COPD, Deep Vein Thrombosis (DVT), Hypertension, Pneumonia, Rheumatoid Arthritis (RA) Additional Past Medical History / Comment(s): hearing difficulty currently, colitis, osteopenia, hx cancer of appendix, uses oxygen 2L continuous, waiting for lung transplant due to COPD. chronic back pain, restless leg, recent admission for exacerbation of COPD. 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 Colonoscopy 2016. pain procedure at [facility] with Dr Ty. TAD with unilateral oophorectomy 1983. Partial vulvectomy in 2000. Past Anesthesia/Blood Transfusion Reactions: No Reported Reaction Additional Past Anesthesia/Blood Transfusion Reaction / Comment(s): states is not supposed to have general anesthesia R/T awaiting lung transplant Past Psychological History: ADD/ADHD, Anxiety Additional Psychological History / Comment(s): . Smoking Status: Former smoker Past Alcohol Use History: None Reported Additional Past Alcohol Use History / Comment(s): Pt. states she quit smoking in 1999. smoked 1-1 1/2 PPD, started smoking age 13. Past Drug Use History: None Reported Additional Drug Use History / Comment(s): Quit using Marijuana 04/2016. - Past Family History Father Family Medical History: Cancer, COPD Additional Family Medical History / Comment(s): COLON cancer Mother Family Medical History: Cancer Additional Family Medical History / Comment(s): ESOPHAGUS cancer Sister(s) Family Medical History: Cancer Additional Family Medical History / Comment(s): CERVICAL cancer Medications and Allergies Home Medications Medication Instructions Recorded Confirmed Type rOPINIRole HCL [Requip] 0.5 mg PO HS@199903/24/20 12/30/20 History Cholecalciferol [Vitamin D3 (25 50 mcg PO DAILY@0700 04/08/20 12/30/20 History Mcg = 1000 Iu)] Ipratropium-Albuterol Nebulize 3 ml INHALATION RT-Q4H 04/18/20 12/30/20 History [Duoneb 0.5 mg-3 mg/3 ml Soln] Montelukast [Singulair] 10 mg PO HS #30 tab 04/22/20 12/30/20 Rx Magnesium Oxide [Mag-Ox] 400 mg PO DAILY 09/15/20 12/30/20 History Loratadine [Claritin] 10 mg PO DAILY 10/11/20 12/30/20 History Melatonin 3 mg PO HS 10/11/20 12/30/20 History predniSONE See Taper PO DAILY@0700 11/02/20 12/30/20 History Acetaminophen Tab [Tylenol] 650 mg PO Q4H PRN 12/30/20 12/30/20 History Cephalexin [Keflex] 500 mg PO TID@0700,1300,1900 12/30/20 12/30/20 History Fluticasone Nasal [place] [Flonase 1 spr EA NOSTRIL BID 12/30/20 12/30/20 History Nasal [place]] Furosemide [Lasix] 40 mg PO DAILY 12/30/20 12/30/20 History Gabapentin [Neurontin] 100 mg PO TID@0700,1300,1900 12/30/20 12/30/20 History LORazepam 0.25 mg PO BID PRN 12/30/20 12/30/20 History Levofloxacin [Levaquin] 500 mg PO DAILY@0700 12/30/20 12/30/20 History Losartan [Cozaar] 50 mg PO DAILY@0700 12/30/20 12/30/20 History Metoprolol Tartrate [Lopressor] 12.5 mg PO BID@0700,1900 12/30/20 12/30/20 History Morphine Sulfate [Ms Contin] 15 mg PO BID@0700,1900 12/30/20 12/30/20 History Multivitamins, Thera [Multivitamin 1 tab PO DAILY 12/30/20 12/30/20 History (formulary)] NIFEdipine [NIFEdipine ER] 90 mg PO DAILY@0700 12/30/20 12/30/20 History Pantoprazole Sodium [Protonix] 40 mg PO DAILY@0700 12/30/20 12/30/20 History Potassium Chloride 8 meq PO DAILY 12/30/20 12/30/20 History Sodium Chloride [[place]] 2 spray EA NOSTRIL Q2H PRN 12/30/20 12/30/20 History Theophylline 24 Hour [[place]-24] 400 mg PO DAILY 12/30/20 12/30/20 History metOLazone [Zaroxolyn] 2.5 mg PO DAILY@0500 12/30/20 12/30/20 History Allergies Allergy/AdvReac Type Severity Reaction Status Date / Time infliximab [From Remicade] Allergy Dyspnea/HIV Verified 12/30/20 14:39 ES propoxyphene [From Darvon] Allergy Rash/Hives Verified 12/30/20 14:39 adhesive tape AdvReac "is hard Verified 12/30/20 14:39 on skin" Physical Exam Vitals: Vital Signs Temp Pulse Pulse Resp BP Pulse Ox 01/03/21 12:05 98.2 F 98 20 120/53 94 L 01/03/21 11:35 92 01/03/21 11:26 88 01/03/21 09:05 98.5 F 102 H 20 110/50 97 01/03/21 08:05 84 01/03/21 07:56 88 01/03/21 07:43 90 01/03/21 04:00 98.4 F 97 18 123/57 97 01/03/21 03:57 84 01/03/21 03:46 80 01/03/21 02:00 98 18 01/03/21 00:01 88 01/03/21 00:00 98.3 F 98 18 118/56 98 01/02/21 23:50 80 01/02/21 20:00 98.1 F 98 20 149/65 98 01/02/21 19:45 88 01/02/21 19:39 84 01/02/21 19:24 98 97 01/02/21 15:28 108 H 20 150/78 94 L 01/02/21 15:00 132 H 01/02/21 14:48 128 H Intake and Output 01/02/21 01/03/21 01/03/21 22:59 06:59 14:59 Intake Total 120 240 Output Total 550 1200 Balance -550 -1080 240 Intake: Oral 120 240 Output: Urine 550 1200 Uretheral ([place]) 550 Other: Voiding Method Indwelling Catheter Indwelling Catheter Indwelling Catheter Weight 79 kg 79 kg Results 01/03/21 09:40 01/03/21 09:40 CBC 01/03/21 Range/Units 09:40 WBC 11.4 H (3.8-10.6) k/uL RBC 3.44 L (3.80-5.40) m/uL Hgb 9.7 L (11.4-16.0) gm/dL Hct 30.2 L (34.0-46.0) % Plt Count 443 (150-450) k/uL Comprehensive Metabolic Panel 01/02/21 01/02/21 01/03/21 Range/Units 14:55 20:23 09:40 Sodium 136 L (137-145) mmol/L Potassium 3.0 L 3.7 3.0 L (3.5-5.1) mmol/L Chloride 88 L (98-107) mmol/L Carbon Dioxide 37 H (22-30) mmol/L BUN 48 H (7-17) mg/dL Creatinine 1.09 H (0.52-1.04) mg/dL Glucose 219 H (74-99) mg/dL Calcium 8.9 (8.4-10.2) mg/dL Current Medications Generic Name Dose Route Start Last Admin Trade Name Freq PRN Reason Stop Dose Admin Acetaminophen 650 mg 12/30/20 15:05 01/01/21 03:38 Acetaminophen Tab 325 Mg Tab PO 650 mg Q4H PRN Administration Mild Pain Hydrocodone Bitart/Acetaminophen 1 each 12/30/20 17:43 Hydrocodone/Apap 5-325mg 1 Each Tab PO Q6HR PRN Pain Albuterol/Ipratropium 3 ml 12/30/20 16:00 01/03/21 11:24 Ipratropium-Albuterol 3 Ml Neb INHALATION 3 ml RT-Q4H LATESHA Administration Albuterol/Ipratropium 3 ml 12/30/20 17:40 Ipratropium-Albuterol 3 Ml Neb INHALATION RT-QID PRN Shortness Of Breath Or Wheezing Alprazolam 0.25 mg 01/01/21 13:35 01/03/21 10:55 Alprazolam 0.25 Mg Tab PO 0.25 mg TID PRN Administration Anxiety Budesonide 1 mg 12/30/20 20:00 01/03/21 07:43 Budesonide 1 Mg/2 Ml Nebu INHALATION 1 mg RT-BID LATESHA Administration Cholecalciferol 50 mcg 12/31/20 07:00 01/03/21 06:44 Cholecalciferol 25 Mcg (1000 Iu) Tablet PO 50 mcg DAILY@0700 LATESHA Administration Fluconazole 100 mg 01/01/21 18:00 01/02/21 17:35 Fluconazole 100 Mg Tab PO 100 mg Q24H LATESHA Administration Fluticasone Propionate 1 spray 12/30/20 21:00 01/03/21 09:11 Fluticasone 50mcg/[place] Nasal 16gm EA NOSTRIL 1 spray BID LATESHA Administration Formoterol Fumarate 20 mcg 12/30/20 20:00 01/03/21 07:43 Formoterol Fumarate 20 Mcg/2 Ml Nebu INHALATION 20 mcg RT-BID LATESHA Administration Furosemide 40 mg 12/31/20 21:00 01/03/21 09:11 Furosemide 10 Mg/Ml 4 Ml Vial IV 40 mg Q12HR LATESHA Administration Gabapentin 100 mg 12/30/20 19:00 01/03/21 12:26 Gabapentin 100 Mg Cap PO 100 mg TID@0700,1300,1900 LATESHA Administration Guaifenesin 200 mg 01/03/21 06:31 01/03/21 06:44 Guaifenesin Syrup 100mg/5ml 200 Mg/10 Ml Cup PO 200 mg Q6H PRN Administration Cough Heparin Sodium (Porcine) 5,000 unit 12/30/20 21:00 01/03/21 09:12 Heparin Sodium,Porcine 5,000 Unit/Ml 1 Ml Vial SQ 5,000 unit Q12HR LATESHA Administration Hydromorphone HCl 0.5 mg 12/30/20 17:43 Hydromorphone 0.5 Mg/0.5 Ml Syringe IVP Q6HR PRN Severe Pain Ampicillin Sodium/Sulbactam 100 mls @ 200 mls/hr 01/03/21 20:00 Sodium 3 gm/ Sodium Chloride IVPB Q8H [facility] Insulin Aspart 0 unit 12/30/20 21:00 01/03/21 12:27 Insulin Aspart (Novolog) 100 Unit/Ml Vial SQ 2 unit ACHS LATESHA Administration Protocol Loratadine 10 mg 12/31/20 09:00 01/03/21 09:12 Loratadine 10 Mg Tab PO 10 mg DAILY LATESHA Administration Magnesium Oxide 400 mg 12/31/20 09:00 01/03/21 09:12 Magnesium Oxide 400 Mg Tab PO 400 mg DAILY LATESHA Administration Melatonin 3 mg 12/30/20 21:00 01/02/21 21:11 Melatonin 3 Mg Tablet PO 3 mg HS LATESHA Administration Methylprednisolone Sodium Succinate 60 mg 12/30/20 18:00 01/03/21 12:26 Methylprednisolone Sod Succi 125 Mg/2 Ml Vial IV 60 mg Q6HR LATESHA Administration Metolazone 2.5 mg 12/31/20 05:00 01/03/21 06:41 Metolazone 2.5 Mg Tab PO 2.5 mg DAILY@0500 LATESHA Administration Miscellaneous Information 1 each 01/02/21 09:27 Potassium Replacement Protocol 1 Each Misc MISCELLANE DAILY PRN Per Protocol Protocol Miscellaneous Information 1 each 01/02/21 15:25 Potassium Replacement Protocol 1 Each Misc MISCELLANE DAILY PRN Per Protocol Protocol Montelukast Sodium 10 mg 12/30/20 21:00 01/02/21 20:10 Montelukast 10 Mg Tab PO 10 mg HS LATESHA Administration Morphine Sulfate 15 mg 12/30/20 19:00 01/03/21 06:41 Morphine Sulfate Er 15 Mg Tablet PO 15 mg BID@0700,1900 LATESHA Administration Protocol Multivitamins 1 each 12/31/20 09:00 01/03/21 09:12 Multivitamins, Thera 1 Each Tab PO 1 each DAILY LATESHA Administration Pantoprazole Sodium 40 mg 12/31/20 07:00 01/03/21 06:42 Pantoprazole 40 Mg Tablet PO 40 mg DAILY@0700 LATESHA Administration Potassium Chloride 10 meq 12/31/20 09:00 01/03/21 09:12 Potassium Chloride Er 10 Meq Tab.Er.Prt PO 10 meq DAILY LATESHA Administration Ropinirole HCl 0.5 mg 12/30/20 20:00 01/02/21 20:10 Ropinirole Hcl 0.25 Mg Tab PO 0.5 mg HS@2000 LATESHA Administration Theophylline 400 mg 12/31/20 09:00 01/03/21 09:11 Theophylline 24 Hour 400 Mg Cap.Er.24h PO 400 mg DAILY LATESHA Administration Verapamil HCl 80 mg 01/03/21 16:00 Verapamil 80 Mg Tab PO TID LATESHA Intake and Output 01/02/21 01/03/21 01/03/21 22:59 06:59 14:59 Intake Total 120 240 Output Total 550 1200 Balance -550 -1080 240 Intake: Oral 120 240 Output: Urine 550 1200 Uretheral ([place]) 550 Other: Voiding Method Indwelling Catheter Indwelling Catheter Indwelling Catheter Weight 79 kg 79 kg Patient Weight 01/04/21 06:59 Weight 79 kg 01/03/21 09:40 01/03/21 09:40
[2021-01-03] MEDS: POTASSIUM CHLORIDE ER 20 MEQ TAB.ER PO SCH ×3 (15:14→18:20)
--- NOTE | 2021-01-03 15:39 | P.PN ---
Subjective Progress Note Date: 01/03/21 Principal diagnosis: Acute on chronic hypoxic respiratory failure secondary to acute exacerbation of COPD. 65-year-old female patient with advanced COPD, evaluated, listed and sub sequently taken off lung transplantation as the patient was becoming progressively more debilitated and she was not found to be a good candidate for his mentation. trasnsplant comes into the hospital because of worsening shortness of breath a few days duration. No chest pain. No pleurisy. No hemo ptysis. a she also had some yellowish sputum production and fever with a temperature of 103.5. She came into the emergency department because of these symptoms COVID 19 testing was negative. The chest x-ray showed COPD without any acute abnormalities. H . She is known to have an FEV1 of 27% of predicted and she has chronic hypoxic respiratory failure admitted on oxygen at 2 L per minute nasal cannula. She has other comorbidities including RA, hypertension, and previous history of vulvar cancer. She has been maintained on a combination of Perforomist and Pulmicort nebulized treatments twice today and Yupelri nebulized treatments in addition to albuterol updrafts [id number] has had multiple hospitalizations for COPD exacerbation. She is maintained on prednisone 2.5 mg on a daily basis and she also takes theophylline 400 mg by mouth daily. He had noted the patient's last hospitalization [facility] was in October 2020. Following that she was hospitalized again at [facility] for another COPD exacerbation and following that she was transferred to [facility] she also had developed increased swelling in lower extremities and the skin over the left foot has blisters because of the excessive edema. She currently has a Altamirano catheter in place. His taken diuretics in the form of oral Lasix at the [facility]. She was taken Lasix 40 mg by mouth daily and Zaroxolyn 2.5 mg by mouth daily. 01/01/2021 the patient is diuresing adequately and she is responding to the diuretics. She is feeling slightly less short of breath compared to yesterday. I have on Lasix 40 mg IV she'll 12 hours and the patient is also on bronchodilators and systemic steroids. Oxygen levels have been reduced down to 5 L of oxygen by nasal cannula. She is tolerating her diet. No nausea. No vomiting. No diarrhea. No abdominal pain. Fluid balance is been negative and the patient has lost weight and currently she is waiting 77 kg. Urine culture is positive for gram-negative bacillus and the patient is currently on IV cefepime and Levaquin and we broadened antibiotic coverage and the patient was in a fpc prior to her coming to us to the hospital. 01/02/2021, the patient continues to be on diuretics and she is diuresing aggressively while being on Lasix 40 mg every 12 hours pH is down to 3 visible action by nasal cannula. Her BUN is at 39 with a creatinine of 1.1 and her renal function is improved. Potassium level is at 3.1 which is essentially due to diuresis diuresis and the patient's bicarb level is 32. Fluid balance has been negative over the past 48 hours and the patient is producing another 2.5 L of negative fluid balance over the past 24 hours. Urine culture was positive for gram-negative bacillus and the final cultures came back positive for enteral caucus faecalis and Klebsiella and the cultures and sensitivities were noted. The patient is currently on a combination of cefepime and Levaquin. And based on the sensitivity, antibiotic coverage is adequate for now. She is afebrile. She is hemodynamically stable. No fever. No leukocytosis. The patient's rhythm is irregular today and there is suspicion that she may be in atrial fibrillation. We'll follow a 12-lead EKG to rule out the possibility of atrial fibrillation. Potassium level needs to be replaced as the level is at 3.1. Patient was reevaluated today on 01/03/2021, remains in the ICU, remains on bronchodilators and diuretics. She is on 3 L nasal cannula, O2 saturations 94% patient remains on bronchodilators in the form of Pulmicort, DuoNeb, Perforom ist, and she is on IV Solu-Medrol 60 mg IV push every 6 hours, she is also on diuretics. She is also on theophylline. Her urine culture was positive for Enterococcus faecalis, and Klebsiella. Hence Unasyn was started by infectious disease on the case today. Mostly because her enterococcus is sensitive to ampicillin. CBC is relatively normal lites are normal except for low potassium of 3.0 the UN is 48 creatinine is 1.09. Objective - Vital Signs Vital signs: Vital Signs Temp 98.2 F 01/03/21 12:05 Pulse 98 03/08/21 12:05 Resp 20 01/03/21 12:05 BP 120/53 01/03/21 12:05 Pulse Ox 94 L 01/03/21 12:05 Intake & Output 01/02/21 01/03/21 01/03/21 18:59 06:59 18:59 Intake Total 720 120 700 Output Total 1600 1750 1725 Balance -880 -1490 -1021 Weight 79 kg 79 kg Intake: Intake, IV Titration 100 Amount Ampicillin-Sulbactam 3 gm 100 In Sodium Chloride 0.9% 100 ml @ 200 mls/hr IVPB Q8H [facility] Rx#:[id number] Oral 720 120 600 Output: Urine 1600 1750 1725 Uretheral (Altamirano) 550 Other: Voiding Method Indwelling Catheter Indwelling Catheter Indwelling Catheter - Exam GENERAL EXAM: Alert, very pleasant, 65-year-old white female, on 3 L of oxygen with pulse ox of 95% comfortable in no apparent distress. HEAD: Normocephalic/atraumatic. EENT: Patient is cushingoid, PERRLA, EOMI, nonicteric, moist mucous membranes, throat is clear. CHEST: No chest wall deformity. Symmetrical expansion. LUNGS: Equal air entry with a few scattered wheezes, and the patient has marked diminished breath sounds bilaterally. CVS: Regular rate and rhythm, normal S1 and S2, no gallops, no murmurs, no rubs ABDOMEN: Soft, nontender. No hepatosplenomegaly, normal bowel sounds, no guarding or rigidity. EXTREMITIES: No clubbing, increased edema lower extremities bilaterally, no cyanosis, 2+ pulses and upper and lower extremities. MUSCULOSKELETAL: Muscle strength and tone normal. SKIN: No rashes, skin blistering vesicle formation over the anterior aspect of the left foot CENTRAL NERVOUS SYSTEM: Alert and oriented -3. No focal deficits, tone is normal in all 4 extremities. PSYCHIATRIC: Alert and oriented -3. Appropriate affect. Intact judgment and insight. - Labs CBC & Chem 7: 01/03/21 09:40 01/03/21 09:40 Labs: Abnormal Lab Results - Last 24 Hours (Table) 01/02/21 01/02/21 01/03/21 Range/Units 16:53 20:54 05:52 WBC (3.8-10.6) k/uL RBC (3.80-5.40) m/uL Hgb (11.4-16.0) gm/dL Hct (34.0-46.0) % RDW (11.5-15.5) % Neutrophils # (Manual) (1.3-7.7) k/uL Lymphocytes # (Manual) (1.0-4.8) k/uL Metamyelocytes # (Man) (0) k/uL Sodium (137-145) mmol/L Potassium (3.5-5.1) mmol/L Chloride (98-107) mmol/L Carbon Dioxide (22-30) mmol/L BUN (7-17) mg/dL Creatinine (0.52-1.04) mg/dL Glucose (74-99) mg/dL POC Glucose (mg/dL) 151 H 185 H 216 H (75-99) mg/dL 01/03/21 01/03/21 01/03/21 Range/Units 09:40 09:40 11:58 WBC 11.4 H (3.8-10.6) k/uL RBC 3.44 L (3.80-5.40) m/uL Hgb 9.7 L (11.4-16.0) gm/dL Hct 30.2 L (34.0-46.0) % RDW 16.8 H (11.5-15.5) % Neutrophils # (Manual) 11.00 H (1.3-7.7) k/uL Lymphocytes # (Manual) 0.11 L (1.0-4.8) k/uL Metamyelocytes # (Man) 0.11 H (0) k/uL Sodium 136 L (137-145) mmol/L Potassium 3.0 L (3.5-5.1) mmol/L Chloride 88 L (98-107) mmol/L Carbon Dioxide 37 H (22-30) mmol/L BUN 48 H (7-17) mg/dL Creatinine 1.09 H (0.52-1.04) mg/dL Glucose 219 H (74-99) mg/dL POC Glucose (mg/dL) 204 H (75-99) mg/dL Microbiology - Last 24 Hours (Table) 12/30/20 13:41 Blood Culture - Preliminary Blood No Growth after 72 hours 12/30/20 13:56 Blood Culture - Preliminary Blood No Growth after 72 hours 12/31/20 23:22 Urine Culture - Final Urine,Catheterized Assessment and Plan Assessment: Impression: Acute exacerbation of COPD Acute on chronic hypoxic respiratory failure secondary to COPD, FEV1 is 27%. Remote history of deep vein thrombosis. Chronic hypoxic respiratory failure. Benign essential hypertension. Remote smoking history. Oropharyngeal candidiasis. Acute urinary tract infection secondary to Klebsiella and enterococcus. Extremes debility. Chronic cor pulmonale. 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 History of right colectomy and subsequent wound dehiscence and reclosure for small bowel obstruction. Recommendation: Continue bronchodilators. Including DuoNeb, Perforomist, Pulmicort, and continue methylprednisolone, continue theophylline. Continue antibiotics/Unasyn. Continue Diflucan. Continue diuretics. Continue to correct abnormal electrolytes including low potassium as per protocol. Continue diuretics may have to cut down on the dose of diuretics as her renal functioning is showing prerenal azotemia. Not quite ready for discharge planning. Overall prognosis remains poor and guarded. We'll continue to follow Time with Patient: Less than 30
[2021-01-03] MEDS: VERAPAMIL 80 MG TAB PO SCH ×2 (16:46→21:43)
[2021-01-03] MEDS: methylPREDNISolone SOD SUCCI 40 MG/ML 1 ML VIAL IV SCH ×2 (16:46→23:44)
[2021-01-03 16:56] LABS: Glucose,Whole Blood 222 mg/dL (75-99)
--- NOTE | 2021-01-03 17:41 | PN ---
PROGRESS NOTE DATE OF SERVICE: 01/03/2021 INTERVAL HISTORY: This 4y-year-old woman was admitted with COPD exacerbation also had hypertension, sepsis and multiple medical issues also. The cultures are showing Erica albicans and Klebsiella pneumoniae, Enterococcus faecalis which is vancomycin sensitive. Infectious Disease is following the patient closely as well Pulmonary and Cardiology also saw the patient. The patient also had atrial fibrillation. PHYSICAL EXAMINATION: GENERAL: Patient is alert and oriented times three. VITAL SIGNS: Pulse 98, blood pressure 120/53, respirations 20, temperature 98.2, pulse ox 94% on 3 liters. HEENT: Conjunctivae normal. NECK: No jugular venous distention. No carotid bruits. No lymph node enlargement. RESPIRATORY: Breath sounds diminished at the bases. A few scattered rhonchi and crackles. HEART: S1 and S2, muffled. ABDOMEN: Soft, no tenderness. Obese. EXTREMITIES: No edema, no swelling. NERVOUS: No focal deficits. LABS: WBC 11, hemoglobin 9.1, sodium 130, potassium 3. Creatinine is 1.09. ASSESSMENT: 1. Chronic obstructive pulmonary disease exacerbation with acute purulent tracheobronchitis with acute hypoxic respiratory failure with possible severe sepsis present on admission. 2. Hypotension secondary to sepsis, present on admission. 3. Erica albicans in the sputum as well as Klebsiella pneumonia and vancomycin sensitive Enterococcus faecalis from the urine. 4. Anemia of undetermined etiology. 5. Hyponatremia. 6. Acute renal failure with acute tubular necrosis present on admission. 7. Chronic kidney stage 3 baseline. 8. Pulmonary hypertension. 9. Increased WBC. 10.Hypokalemia. 11.History of deep venous thrombosis. 12.Hypertension. 13.History of pneumonia. 14.History of rheumatoid arthritis. 15.History of colitis. 16.History of osteopenia. 17.History of chronic hypoxic respiratory failure. 18.Appendectomy. 19.History of bowel resection. 20.History of degenerative joint disease. 21.History of ADHD. 22.History of anxiety disorder. 23.Remote history of nicotine dependence. 24.Obesity with body mass index of 34. 25.Gait dysfunction. RECOMMENDATIONS AND DISCUSSION: Recommend to continue current management and continue symptomatic treatment. Otherwise supplement potassium. Continue the antibiotics. Otherwise, the patient is on high- dose IV steroids. I will try to cut down the dose and closely follow with multiple consultants. PT OT evaluation, possible ECF rehab. Cardiology input appreciated. Guarded prognosis because of multiple complex medical issues. Further recommendations to follow. MMODL / IJN: [id number] /
[2021-01-03] MEDS: FLUCONAZOLE 100 MG TAB PO SCH (18:20)
[2021-01-03 20:21] LABS: Glucose,Whole Blood 256 mg/dL (75-99)
[2021-01-03] MEDS: MONTELUKAST 10 MG TAB PO SCH (20:39)
[2021-01-03] MEDS: MELATONIN 3 MG TABLET PO SCH (20:47)
--- NOTE | 2021-01-03 23:32 | CT ---
EXAMINATION TYPE: CT chest angio for PE DATE OF EXAM: 01/03/2021 COMPARISON: 09/06/2017 HISTORY: elevated d-dimer CT DLP: 404.5 mGycm Automated exposure control for dose reduction was used. CONTRAST: Performed with IV Contrast, patient injected with 60 mL of Isovue 370. There are 3-D post processed images. There is some patchy reticular nodular infiltrate in both lungs. Heart size is normal. There is no pe ricardial effusion. There is no mediastinal adenopathy. Thoracic aorta shows mild atheromatous change . There is no aneurysm or dissection. There are no hilar masses. There is normal contrast opacification of the pulmonary arteries. There are no filling defects. There is thoracic mild kyphotic deformity. T9 and T8 and T7 vertebra show some mild wedging up to 40% . There is osteopenia. The sternum is intact. I see no focal bone destruction. IMPRESSION: No evidence of pulmonary embolism. Interstitial reticular pulmonary density consistent with pulmonary fibrosis and subsegmental atelectasis. No suspicious pulmonary mass. Pulmonary infiltrates and atele ctasis are increased compared to old exam. Thoracic compression fractures are mostly new compared to old exam. Compression fractures appear stab le compared to more recent exam of 12/01/2019.
[2021-01-03] MEDS: NYSTATIN 100,000 UNIT/ML SUSP 500,000 UNIT/5 ML CUP PO SCH (23:57)
[2021-01-04] MEDS: AMPICILLIN-SULBACTAM 3 GM in SODIUM CHLORIDE 0.9% 100 ML IVPB SCH ×3 (03:26→20:26)
[2021-01-04] MEDS: guaiFENesin SYRUP 100MG/5ML 200 MG/10 ML CUP PO PRN (03:26)
[2021-01-04] MEDS: IPRATROPIUM-ALBUTEROL 3 ML NEB INHALATION SCH ×6 (03:27→23:15)
--- NOTE | 2021-01-04 04:43 | PN ---
PROGRESS NOTE DATE OF SERVICE: 01/03/2021. REASON FOR FOLLOWUP: Urinary tract infection. INTERVAL HISTORY: The patient is currently afebrile. The patient is breathing slightly comfortably. The patient denies having any chest pain. She did have some cough, but no sputum production. No nausea, no vomiting. No abdominal pain. No diarrhea. PHYSICAL EXAMINATION: Blood pressure 116/57, pulse of 107, temperature 97.9. She is 99% on 3 L nasal cannula. General description is an elderly female lying in bed in no distress. Respiratory system: Unlabored breathing, decreased intensity in breath sounds. No wheeze. Heart S1, S2. Regular rate and rhythm. Abdomen soft, no tenderness. LAB: Hemoglobin 9.1, white count 11.4, BUN of 14, creatinine 1.09. Sputum is Erica albicans. DIAGNOSTIC IMPRESSION AND PLAN: Patient with urinary tract infection. Urine has been Klebsiella Enterococcus. Patient is covered with Unasyn. White count showing a downward trend. Sputum did not show any resistant pathogen. Continue supportive care. MMODL / IJN: [id number] /
[2021-01-04 06:02] LABS: Glucose,Whole Blood 190 mg/dL (75-99)
[2021-01-04] MEDS: MORPHINE SULFATE ER 15 MG TABLET PO SCH ×2 (06:58→18:33)
[2021-01-04] MEDS: INSULIN ASPART (NovoLOG) 100 UNIT/ML VIAL SQ SCH ×4 (06:58→20:38)
[2021-01-04] MEDS: CHOLECALCIFEROL 25 MCG (1000 IU) TABLET PO SCH (06:58)
[2021-01-04] MEDS: PANTOPRAZOLE 40 MG TABLET PO SCH (06:58)
[2021-01-04] MEDS: GABAPENTIN 100 MG CAP PO SCH ×3 (06:58→18:33)
[2021-01-04] MEDS: metOLazone 2.5 MG TAB PO SCH (07:00)
[2021-01-04] MEDS: FORMOTEROL FUMARATE 20 MCG/2 ML NEBU INHALATION SCH ×2 (07:20→20:13)
[2021-01-04] MEDS: BUDESONIDE 1 MG/2 ML NEBU INHALATION SCH ×2 (07:20→20:00)
[2021-01-04] MEDS: methylPREDNISolone SOD SUCCI 40 MG/ML 1 ML VIAL IV SCH ×3 (08:28→22:41)
[2021-01-04] MEDS: FLUTICASONE 50MCG/SPRAY NASAL 16GM EA NOSTRIL SCH ×2 (08:28→20:32)
[2021-01-04] MEDS: THEOPHYLLINE 24 HOUR 400 MG CAP.ER.24H PO SCH (08:29)
[2021-01-04] MEDS: MAGNESIUM OXIDE 400 MG TAB PO SCH (08:29)
[2021-01-04] MEDS: POTASSIUM CHLORIDE ER 10 MEQ TAB.ER.PRT PO SCH (08:29)
[2021-01-04] MEDS: LORATADINE 10 MG TAB PO SCH (08:29)
[2021-01-04] MEDS: MULTIVITAMINS, THERA 1 EACH TAB PO SCH (08:29)
[2021-01-04] MEDS: HEPARIN SODIUM,PORCINE 5,000 UNIT/ML 1 ML VIAL SQ SCH ×2 (08:29→20:27)
[2021-01-04] MEDS: FUROSEMIDE 10 MG/ML 4 ML VIAL IV SCH (08:29)
[2021-01-04] MEDS: VERAPAMIL 80 MG TAB PO SCH ×3 (08:29→20:32)
[2021-01-04] MEDS: NYSTATIN 100,000 UNIT/ML SUSP 500,000 UNIT/5 ML CUP PO SCH ×3 (08:30→20:27)
[2021-01-04 09:22] LABS: Calcium 9.3 mg/dL (8.4-10.2); Potassium 3.5 mmol/L (3.5-5.1)
[2021-01-04 11:51] LABS: Glucose,Whole Blood 230 mg/dL (75-99)
[2021-01-04] MEDS: ALPRAZolam 0.25 MG TAB PO PRN ×2 (11:57→22:26)
--- NOTE | 2021-01-04 13:28 | P.PN ---
Subjective Progress Note Date: 01/04/21 HISTORY OF PRESENT ILLNESS: 01/03/2021 This is a 65-year-old female with a past medical history significant for COPD, DVT, hypertension, rheumatoid arthritis, home oxygen use, and previous nicotine dependence. 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 We have been asked to see the patient in consultation for possible atrial fibrillation. Patient examined at the bedside. Patient is admitted to the hospital secondary to COPD exacerbation. patient denies chest pain or pressure. She reports mild shortness of breath. She is receiving IV steroids per pulmonary. She denies palpi tations. Potassium 3.0. Magnesium 2.1. EKG reveals sinus tachycardia with PACs Chest xray probable basilar atelectasis. Cardiomegaly Laboratory data: WBC 11.4. Hemoglobin 9.7. Platelet count 443. Sodium 136. Potassium 3.0. BUN 48. Creatinine 1.09. BNP 304 Current home cardiac medications include Zaroxolyn 2.5 mg daily, nifedipine 90 mg daily, metoprolol tartrate 12.5 mg twice a day, losartan 50 mg daily and Lasix 40 mg daily Echocardiogram completed revealed ejection fraction 60-65%, trace to mild mitral regurgitation, mild tricuspid regurgitation, and moderate pulmonary hypertension 01/04/2021 Patient examined at the bedside. She denies chest pain or pressure. Telemetry reviewed without evidence of atrial fibrillation. Potassium 3.5. Magnesium 2.0. BUN 51. Creatinine 1.25. Patient's Lasix has been discontinued per pulmonary. PHYSICAL EXAM: VITAL SIGNS: Reviewed. GENERAL: Well-developed in no acute distress. HEENT: Head is normocephalic. Pupils are equal, round. Sclerae anicteric. Mucous membranes of the mouth are moist. Neck supple. No JVD or thyromegaly LUNGS: Respirations even and unlabored. Lungs with expiratory wheezing bilaterally HEART: Regular rate and rhythm. S1 and S2 heard. ABDOMEN: Soft. Nondistended. Nontender. EXTREMITIES: Normal range of motion. No clubbing or cyanosis. Peripheral pulses intact. 1-2+ bilateral lower extremity edema NEUROLOGIC: Awake and alert. Oriented x 3. ASSESSMENT: Acute exacerbation of COPD Sinus tachycardia with PACs, atrial fibrillation ruled out Hypertension Chronic hypoxic respiratory failure, on home oxygen Hypokalemia Lower extremity edema PLAN: Continue telemetry monitoring Lasix discontinued today per pulmonary Continue to monitor electrolytes Continue current cardiac medications Further recommendations pending patient course Nurse practitioner note has been reviewed by physician. Signing provider agrees with the documented findings, assessment, and plan of care. Objective - Vital Signs Vital signs: Vital Signs Temp 97.6 F 01/04/21 11:56 Pulse 99 01/04/21 11:56 Resp 20 01/04/21 11:56 BP 123/58 01/04/21 11:56 Pulse Ox 95 01/04/21 11:56 Intake & Output 01/03/21 01/04/21 01/04/21 18:59 06:59 18:59 Intake Total 1060 480 360 Output Total 1725 875 Balance -665 -395 360 Weight 79 kg 88.9 kg Intake: Intake, IV Titration 100 Amount Ampicillin-Sulbactam 3 gm 100 In Sodium Chloride 0.9% 100 ml @ 200 mls/hr IVPB Q8H [facility] Rx#:[id number] Oral 960 480 360 Output: Urine 1725 875 Uretheral (Altamirano) 350 Other: Voiding Method Indwelling Catheter Indwelling Catheter Indwelling Catheter - Labs CBC & Chem 7: 01/03/21 09:40 01/04/21 08:49 Labs: Abnormal Lab Results - Last 24 Hours (Table) 01/03/21 01/03/21 01/04/21 Range/Units 16:53 20:20 06:00 Sodium (137-145) mmol/L Chloride (98-107) mmol/L Carbon Dioxide (22-30) mmol/L BUN (7-17) mg/dL Creatinine (0.52-1.04) mg/dL Glucose (74-99) mg/dL POC Glucose (mg/dL) 222 H 256 H 190 H (75-99) mg/dL 01/04/21 01/04/21 Range/Units 08:49 11:50 Sodium 135 L (137-145) mmol/L Chloride 84 L (98-107) mmol/L Carbon Dioxide 38 H (22-30) mmol/L BUN 51 H (7-17) mg/dL Creatinine 1.25 H (0.52-1.04) mg/dL Glucose 179 H (74-99) mg/dL POC Glucose (mg/dL) 230 H (75-99) mg/dL Microbiology - Last 24 Hours (Table) 12/30/20 13:56 Blood Culture - Preliminary Blood No Growth after 96 hours 12/30/20 13:41 Blood Culture - Preliminary Blood No Growth after 96 hours
--- NOTE | 2021-01-04 15:44 | P.PN ---
Subjective Progress Note Date: 01/04/21 Principal diagnosis: Acute on chronic hypoxic respiratory failure secondary to acute exacerbation of COPD. 65-year-old female patient with advanced COPD, evaluated, listed and sub sequently taken off lung transplantation as the patient was becoming progressively more debilitated and she was not found to be a good candidate for his mentation. trasnsplant comes into the hospital because of worsening shortness of breath a few days duration. No chest pain. No pleurisy. No hemo ptysis. a she also had some yellowish sputum production and fever with a temperature of 103.5. She came into the emergency department because of these symptoms COVID 19 testing was negative. The chest x-ray showed COPD without any acute abnormalities. H . She is known to have an FEV1 of 27% of predicted and she has chronic hypoxic respiratory failure admitted on oxygen at 2 L per minute nasal cannula. She has other comorbidities including RA, hypertension, and previous history of vulvar cancer. She has been maintained on a combination of Perforomist and Pulmicort nebulized treatments twice today and Yupelri nebulized treatments in addition to albuterol updrafts [id number] has had multiple hospitalizations for COPD exacerbation. She is maintained on prednisone 2.5 mg on a daily basis and she also takes theophylline 400 mg by mouth daily. He had noted the patient's last hospitalization [facility] was in October 2020. Following that she was hospitalized again at [facility] for another COPD exacerbation and following that she was transferred to [facility] she also had developed increased swelling in lower extremities and the skin over the left foot has blisters because of the excessive edema. She currently has a Altamirano catheter in place. His taken diuretics in the form of oral Lasix at the [facility]. She was taken Lasix 40 mg by mouth daily and Zaroxolyn 2.5 mg by mouth daily. 01/01/2021 the patient is diuresing adequately and she is responding to the diuretics. She is feeling slightly less short of breath compared to yesterday. I have on Lasix 40 mg IV she'll 12 hours and the patient is also on bronchodilators and systemic steroids. Oxygen levels have been reduced down to 5 L of oxygen by nasal cannula. She is tolerating her diet. No nausea. No vomiting. No diarrhea. No abdominal pain. Fluid balance is been negative and the patient has lost weight and currently she is waiting 77 kg. Urine culture is positive for gram-negative bacillus and the patient is currently on IV cefepime and Levaquin and we broadened antibiotic coverage and the patient was in a snf prior to her coming to us to the hospital. 01/02/2021, the patient continues to be on diuretics and she is diuresing aggressively while being on Lasix 40 mg every 12 hours pH is down to 3 visible action by nasal cannula. Her BUN is at 39 with a creatinine of 1.1 and her renal function is improved. Potassium level is at 3.1 which is essentially due to diuresis diuresis and the patient's bicarb level is 32. Fluid balance has been negative over the past 48 hours and the patient is producing another 2.5 L of negative fluid balance over the past 24 hours. Urine culture was positive for gram-negative bacillus and the final cultures came back positive for enteral caucus faecalis and Klebsiella and the cultures and sensitivities were noted. The patient is currently on a combination of cefepime and Levaquin. And based on the sensitivity, antibiotic coverage is adequate for now. She is afebrile. She is hemodynamically stable. No fever. No leukocytosis. The patient's rhythm is irregular today and there is suspicion that she may be in atrial fibrillation. We'll follow a 12-lead EKG to rule out the possibility of atrial fibrillation. Potassium level needs to be replaced as the level is at 3.1. Patient was reevaluated today on 01/03/2021, remains in the ICU, remains on bronchodilators and diuretics. She is on 3 L nasal cannula, O2 saturations 94% patient remains on bronchodilators in the form of Pulmicort, DuoNeb, Perforom ist, and she is on IV Solu-Medrol 60 mg IV push every 6 hours, she is also on diuretics. She is also on theophylline. Her urine culture was positive for Enterococcus faecalis, and Klebsiella. Hence Unasyn was started by infectious disease on the case today. Mostly because her enterococcus is sensitive to ampicillin. CBC is relatively normal lites are normal except for low potassium of 3.0 the UN is 48 creatinine is 1.09. Patient was reevaluated today on 01/04/2021, continues to do poorly, continues to complain of shortness of breath, cough wheezing, and now she has fullness and pressure like feeling in her upper abdomen. Patient had a CT angiogram of the chest yesterday, ruled out pulmonary embolism, and felt that her pain was not pulmonary in nature. Patient is mostly on pain medications as per her admitting physician. Patient remains on multiple bronchodilators, antibiotics, today I held back her diuretics mostly because of her worsening renal functioning. Objective - Vital Signs Vital signs: Vital Signs Temp 98.0 F 01/04/21 15:30 Pulse 96 01/04/21 15:30 Resp 18 01/04/21 15:30 BP 132/60 01/04/21 15:30 Pulse Ox 98 01/04/21 15:30 Intake & Output 01/03/21 01/04/21 01/04/21 18:59 06:59 18:59 Intake Total 1060 480 360 Output Total 1725 875 Balance -665 -395 360 Weight 79 kg 88.9 kg Intake: Intake, IV Titration 100 Amount Ampicillin-Sulbactam 3 gm 100 In Sodium Chloride 0.9% 100 ml @ 200 mls/hr IVPB Q8H [facility] Rx#:[id number] Oral 960 480 360 Output: Urine 1725 875 Uretheral (Altamirano) 350 Other: Voiding Method Indwelling Catheter Indwelling Catheter Indwelling Catheter - Exam GENERAL EXAM: Alert, very pleasant, 65-year-old white female, on 3 L of oxygen with pulse ox of 95% comfortable in no apparent distress. HEAD: Normocephalic/atraumatic. EENT: Patient is cushingoid, PERRLA, EOMI, nonicteric, moist mucous membranes, throat is clear. CHEST: No chest wall deformity. Symmetrical expansion. LUNGS: Equal air entry with a few scattered wheezes, and the patient has marked diminished breath sounds bilaterally. CVS: Regular rate and rhythm, normal S1 and S2, no gallops, no murmurs, no rubs ABDOMEN: Soft, nontender. No hepatosplenomegaly, normal bowel sounds, no guarding or rigidity. EXTREMITIES: No clubbing, increased edema lower extremities bilaterally, no cyanosis, 2+ pulses and upper and lower extremities. MUSCULOSKELETAL: Muscle strength and tone normal. SKIN: No rashes, positive skin blistering vesicle formation over the anterior as pect of the left foot CENTRAL NERVOUS SYSTEM: Alert and oriented -3. No focal deficits, tone is no rmal in all 4 extremities. PSYCHIATRIC: Alert and oriented -3. Appropriate affect. Intact judgment and insight. - Labs CBC & Chem 7: 01/03/21 09:40 01/04/21 08:49 Labs: Abnormal Lab Results - Last 24 Hours (Table) 01/03/21 01/03/21 01/04/21 Range/Units 16:53 20:20 06:00 Sodium (137-145) mmol/L Chloride (98-107) mmol/L Carbon Dioxide (22-30) mmol/L BUN (7-17) mg/dL Creatinine (0.52-1.04) mg/dL Glucose (74-99) mg/dL POC Glucose (mg/dL) 222 H 256 H 190 H (75-99) mg/dL 01/04/21 01/04/21 Range/Units 08:49 11:50 Sodium 135 L (137-145) mmol/L Chloride 84 L (98-107) mmol/L Carbon Dioxide 38 H (22-30) mmol/L BUN 51 H (7-17) mg/dL Creatinine 1.25 H (0.52-1.04) mg/dL Glucose 179 H (74-99) mg/dL POC Glucose (mg/dL) 230 H (75-99) mg/dL Microbiology - Last 24 Hours (Table) 12/30/20 13:56 Blood Culture - Preliminary Blood No Growth after 96 hours 12/30/20 13:41 Blood Culture - Preliminary Blood No Growth after 96 hours Assessment and Plan Assessment: Impression: Acute exacerbation of COPD Acute on chronic hypoxic respiratory failure secondary to COPD, FEV1 is 27%. Remote history of deep vein thrombosis. Negative CT angiogram of the chest on this admission. Chronic hypoxic respiratory failure. Benign essential hypertension. Remote smoking history. Oropharyngeal candidiasis. Acute urinary tract infection secondary to Klebsiella and enterococcus. Extremes debility. Chronic cor pulmonale. 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 History of right colectomy and subsequent wound dehiscence and reclosure for small bowel obstruction. Recommendation: Discussed with the patient her CT angiogram of the chest and showed no evidence of pulmonary embolism. Continue bronchodilators. Including DuoNeb, Perforomist, Pulmicort, and continue methylprednisolone, continue theophylline. Continue antibiotics/Unasyn. Continue Diflucan. All diuretics for the next 24-48 hours. Continue to correct abnormal electrolytes including low potassium as per protocol. Not ready for any discharge planning. Overall prognosis remains poor and guarded. We'll continue to follow Time with Patient: Less than 30
--- NOTE | 2021-01-04 16:09 | P.PN ---
Subjective Progress Note Date: 01/04/21 This is a 65-year-old female who was recently admitted with chronic obstructive pulmonary disease acute exacerbation also hypertension, sepsis, and multiple complex medical issues. Patient is being closely monitored. Patient had some sputum cultures showing Erica albicans along with urine culture showing Klebsiella pneumonia along with enterococcus and blood cultures negative. These following and patient is maintained on IV Unasyn and will continue at this time. Patient was receiving IV Lasix for bilateral lower extremity edema which has been discontinued. Multiple medical consultations following including pulmonary and cardiology. Patient underwent chest CTA yesterday showing no evidence of PE with some interstitial reticular pulmonary density consistent with pulmonary fibrosis and subsegmental atelectasis with no suspicious pulmonary mass noted, and increased pulmonary infiltrates and atelectasis compared to previous exam. Patient is afebrile. No reports of nausea or vomiting noted. Patient is Dyspneic with exertion and with minimal conversation. Social work also following as patient currently resides at [facility] and will be returning there upon discharge. Review of systems: Constitutional: No reports of fatigue, fever, or chills Cardiovascular: No reports of chest pain or palpitations Respiratory: rePorts continued shortness of breath and cough GI: No reports of nausea, vomiting, or diarrhea : No reports of dysuria or retention, current indwelling Altamirano catheter Neurovascular: No reports of weakness or numbness All medications have been reviewed Active Medications Acetaminophen (Acetaminophen Tab 325 Mg Tab) 650 mg PO Q4H PRN PRN Reason: Mild Pain Last Admin: 01/01/21 03:38 Dose: 650 mg Documented by: Hydrocodone Bitart/Acetaminophen (Hydrocodone/Apap 5-325mg 1 Each Tab) 1 each PO Q6HR PRN PRN Reason: Pain Albuterol/Ipratropium (Ipratropium-Albuterol 3 Ml Neb) 3 ml INHALATION RT-Q4H LATESHA Last Admin: 01/04/21 07:20 Dose: 3 ml Documented by: Albuterol/Ipratropium (Ipratropium-Albuterol 3 Ml Neb) 3 ml INHALATION RT-QID PRN PRN Reason: Shortness Of Breath Or Wheezing Alprazolam (Alprazolam 0.25 Mg Tab) 0.25 mg PO TID PRN PRN Reason: Anxiety Last Admin: 01/04/21 11:57 Dose: 0.25 mg Documented by: Budesonide (Budesonide 1 Mg/2 Ml Nebu) 1 mg INHALATION RT-BID [facility] Last Admin: 01/04/21 07:20 Dose: 1 mg Documented by: Cholecalciferol (Cholecalciferol 25 Mcg (1000 Iu) Tablet) 50 mcg PO DAILY@0700 [facility] Last Admin: 01/04/21 06:58 Dose: 50 mcg Documented by: Fluconazole (Fluconazole 100 Mg Tab) 100 mg PO Q24H [facility] Last Admin: 01/03/21 18:20 Dose: 100 mg Documented by: Fluticasone Propionate (Fluticasone 50mcg/[place] Nasal 16gm) 1 spray EA NOSTRIL BID [facility] Last Admin: 01/04/21 08:28 Dose: 1 spray Documented by: Formoterol Fumarate (Formoterol Fumarate 20 Mcg/2 Ml Nebu) 20 mcg INHALATION RT-BID [facility] Last Admin: 01/04/21 07:20 Dose: 20 mcg Documented by: Gabapentin (Gabapentin 100 Mg Cap) 100 mg PO TID@0700,1300,1900 [facility] Last Admin: 01/04/21 11:57 Dose: 100 mg Documented by: Guaifenesin (Guaifenesin Syrup 100mg/5ml 200 Mg/10 Ml Cup) 200 mg PO Q6H PRN PRN Reason: Cough Last Admin: 01/04/21 03:26 Dose: 200 mg Documented by: Heparin Sodium (Porcine) (Heparin Sodium,Porcine 5,000 Unit/Ml 1 Ml Vial) 5,000 unit SQ Q12HR [facility] Last Admin: 01/04/21 08:29 Dose: 5,000 unit Documented by: Hydromorphone HCl (Hydromorphone 0.5 Mg/0.5 Ml Syringe) 0.5 mg IVP Q6HR PRN PRN Reason: Severe Pain Ampicillin Sodium/Sulbactam (Sodium 3 gm/ Sodium Chloride) 100 mls @ 200 mls/hr IVPB Q8H [facility] Last Admin: 01/04/21 11:57 Dose: 200 mls/hr Documented by: Insulin Aspart (Insulin Aspart (Novolog) 100 Unit/Ml Vial) 0 unit SQ ACHS [facility]; Protocol Last Admin: 01/04/21 11:57 Dose: 3 unit Documented by: Loratadine (Loratadine 10 Mg Tab) 10 mg PO DAILY [facility] Last Admin: 01/04/21 08:29 Dose: 10 mg Documented by: Magnesium Oxide (Magnesium Oxide 400 Mg Tab) 400 mg PO DAILY [facility] Last Admin: 01/04/21 08:29 Dose: 400 mg Documented by: Melatonin (Melatonin 3 Mg Tablet) 3 mg PO HS [facility] Last Admin: 01/03/21 20:47 Dose: 3 mg Documented by: Methylprednisolone Sodium Succinate (Methylprednisolone Sod Succi 40 Mg/Ml 1 Ml Vial) 40 mg IV Q8HR [facility] Last Admin: 01/04/21 15:31 Dose: 40 mg Documented by: Miscellaneous Information (Potassium Replacement Protocol 1 Each Misc) 1 each MISCELLANE DAILY PRN; Protocol PRN Reason: Per Protocol Montelukast Sodium (Montelukast 10 Mg Tab) 10 mg PO [facility] Last Admin: 01/03/21 20:39 Dose: 10 mg Documented by: Morphine Sulfate (Morphine Sulfate Er 15 Mg Tablet) 15 mg PO BID@0700,1900 [facility]; Protocol Last Admin: 01/04/21 06:58 Dose: 15 mg Documented by: Multivitamins (Multivitamins, Thera 1 Each Tab) 1 each PO DAILY [facility] Last Admin: 01/04/21 08:29 Dose: 1 each Documented by: Nystatin (Nystatin 100,000 Unit/Ml Susp 500,000 Unit/5 Ml Cup) 500,000 unit PO TID [facility] Last Admin: 01/04/21 15:31 Dose: 500,000 unit Documented by: Pantoprazole Sodium (Pantoprazole 40 Mg Tablet) 40 mg PO DAILY@0700 [facility] Last Admin: 01/04/21 06:58 Dose: 40 mg Documented by: Potassium Chloride (Potassium Chloride Er 10 Meq Tab.Er.Prt) 10 meq PO DAILY [facility] Last Admin: 01/04/21 08:29 Dose: 10 meq Documented by: Ropinirole HCl (Ropinirole Hcl 0.25 Mg Tab) 0.5 mg PO HS@2000 [facility] Last Admin: 01/03/21 20:39 Dose: 0.5 mg Documented by: Theophylline (Theophylline 24 Hour 400 Mg Cap.Er.24h) 400 mg PO DAILY [facility] Last Admin: 01/04/21 08:29 Dose: 400 mg Documented by: Verapamil HCl (Verapamil 80 Mg Tab) 80 mg PO TID [facility] Last Admin: 01/04/21 15:31 Dose: 80 mg Documented by: Objective - Vital Signs Vital signs: Vital Signs Temp 97.6 F 01/04/21 11:56 Pulse 99 01/04/21 11:56 Resp 20 01/04/21 11:56 BP 123/58 01/04/21 11:56 Pulse Ox 95 01/04/21 11:56 Intake & Output 01/03/21 01/04/21 01/04/21 18:59 06:59 18:59 Intake Total 1060 480 360 Output Total 1725 875 Balance -665 -395 360 Weight 79 kg 88.9 kg Intake: Intake, IV Titration 100 Amount Ampicillin-Sulbactam 3 gm 100 In Sodium Chloride 0.9% 100 ml @ 200 mls/hr IVPB Q8H [facility] Rx#:[id number] Oral 960 480 360 Output: Urine 1725 875 Uretheral (Altamirano) 350 Other: Voiding Method Indwelling Catheter Indwelling Catheter Indwelling Catheter - Exam Gen: This is a 65-year-old female awake, alert and oriented 3, well-developed, well-nourished nourished, obese. Temp is 97.6F, pulse is 99, respirations are 20, blood pressure is 123/58, oxygen saturation is 95% on 3 L nasal cannula HEENT: Head is atraumatic, normocephalic. Pupils equal, round. Sclerae is anicteric. NECK: Supple. No JVD. No lymphadenopathy. No thyromegaly. LUNGS: Manage breath sounds bilaterally with some tattered rhonchi noted. No intercostal retractions. HEART: S1, S2 are muffled ABDOMEN: Soft. Bowel sounds are present. No masses. No tenderness. EXTREMITIES: No pedal edema. No calf tenderness. NEUROLOGICAL: Patient is awake, alert and oriented x3. Cranial nerves 2 through 12 are grossly intact. - Labs CBC & Chem 7: 01/03/21 09:40 01/04/21 08:49 Labs: Abnormal Lab Results - Last 24 Hours (Table) 01/03/21 01/03/21 01/04/21 Range/Units 16:53 20:20 06:00 Sodium (137-145) mmol/L Chloride (98-107) mmol/L Carbon Dioxide (22-30) mmol/L BUN (7-17) mg/dL Creatinine (0.52-1.04) mg/dL Glucose (74-99) mg/dL POC Glucose (mg/dL) 222 H 256 H 190 H (75-99) mg/dL 01/04/21 01/04/21 Range/Units 08:49 11:50 Sodium 135 L (137-145) mmol/L Chloride 84 L (98-107) mmol/L Carbon Dioxide 38 H (22-30) mmol/L BUN 51 H (7-17) mg/dL Creatinine 1.25 H (0.52-1.04) mg/dL Glucose 179 H (74-99) mg/dL POC Glucose (mg/dL) 230 H (75-99) mg/dL Microbiology - Last 24 Hours (Table) 12/30/20 13:56 Blood Culture - Preliminary Blood No Growth after 96 hours 12/30/20 13:41 Blood Culture - Preliminary Blood No Growth after 96 hours Assessment and Plan Assessment: Chronic obstructive pulmonary disease exacerbation with acute purulent tracheobronchitis with acute hypoxic respiratory failure with possible severe sepsis, present on admission Hypotension secondary to sepsis, present on admission Erica albicans in the sputum as well as Klebsiella pneumonia and vancomycin sensitive enterococcus from the urine Anemia of undetermined etiology Hyponatremia acute renal failure with acute tubular necrosis, present on admission Chronic kidney disease stage III baseline Pulmonary hypertension Increased white blood count Hypokalemia history of deep vein thrombosis hypertension history of pneumonia history of rheumatoid arthritis history of colitis History of osteopenia History of chronic hypoxic respiratory failure Appendectomy history bowel resection history of degenerative joint disease History of ADHD history of anxiety disorder Remote history of nicotine dependence Obesity with a body mass index of 34 Gait dysfunction Recommendations and discussion: Recommend to continue with current medications and management. Multiple consultations following including pulmonary and cardiology. Infectious disease also following and patient is maintained on IV antibiotics and will continue. Steroids being tapered down. PT/OT to evaluate the patient as patient will be returning to [facility]. Patient continues to be weak and dyspneic with exertion. Due to multiple complex medical issues, prognosis is guarded. Possible discharge in 24-48 hours.
[2021-01-04 16:38] LABS: Glucose,Whole Blood 176 mg/dL (75-99)
[2021-01-04] MEDS: FLUCONAZOLE 100 MG TAB PO SCH (17:20)
[2021-01-04] MEDS: MELATONIN 3 MG TABLET PO SCH (20:27)
[2021-01-04] MEDS: MONTELUKAST 10 MG TAB PO SCH (20:27)
[2021-01-04 20:36] LABS: Glucose,Whole Blood 197 mg/dL (75-99)
--- NOTE | 2021-01-04 22:53 | PN ---
PROGRESS NOTE DATE OF SERVICE: 01/04/2021 REASON FOR FOLLOWUP: Urinary tract infection. INTERVAL HISTORY: The patient is currently afebrile. The patient is breathing comfortably. The patient denies having any chest pain. She continues to have a cough, not bringing up any sputum. No nausea, no vomiting, no abdominal pain or diarrhea. PHYSICAL EXAMINATION: Blood pressure 132/60 with a pulse of 96, temperature 98. She is 98% on 3 L nasal cannula. General description is an elderly female lying in bed in no distress. RESPIRATORY SYSTEM: Unlabored breathing with decreased breath sounds at the base. No wheeze. HEART: S1, S2. Regular rate and rhythm. ABDOMEN: Soft. No tenderness. LABS: BUN of 51, creatinine 1.25. DIAGNOSTIC IMPRESSION AND PLAN: Patient with a urinary tract infection in this patient whose urine has been Klebsiella and Enterococcus, for which the patient is covered with Unasyn, also with a possible component of COPD exacerbation and tracheobronchitis. No evidence of any pneumonia. Continue with supportive care. MMODL / IJN: [id number] /
[2021-01-05] MEDS: IPRATROPIUM-ALBUTEROL 3 ML NEB INHALATION SCH ×4 (02:49→15:09)
[2021-01-05] MEDS: AMPICILLIN-SULBACTAM 3 GM in SODIUM CHLORIDE 0.9% 100 ML IVPB SCH ×2 (03:00→12:40)
[2021-01-05 06:18] LABS: Glucose,Whole Blood 245 mg/dL (75-99)
[2021-01-05] MEDS: MORPHINE SULFATE ER 15 MG TABLET PO SCH (06:30)
[2021-01-05] MEDS: GABAPENTIN 100 MG CAP PO SCH ×2 (06:30→12:44)
[2021-01-05] MEDS: PANTOPRAZOLE 40 MG TABLET PO SCH (06:31)
[2021-01-05] MEDS: CHOLECALCIFEROL 25 MCG (1000 IU) TABLET PO SCH (06:31)
[2021-01-05] MEDS: INSULIN ASPART (NovoLOG) 100 UNIT/ML VIAL SQ SCH ×2 (06:32→12:39)
[2021-01-05] MEDS: BUDESONIDE 1 MG/2 ML NEBU INHALATION SCH (07:04)
[2021-01-05] MEDS: FORMOTEROL FUMARATE 20 MCG/2 ML NEBU INHALATION SCH (07:04)
[2021-01-05 09:44] VITALS: RESP 16
[2021-01-05] MEDS: HEPARIN SODIUM,PORCINE 5,000 UNIT/ML 1 ML VIAL SQ SCH (09:44)
[2021-01-05] MEDS: MAGNESIUM OXIDE 400 MG TAB PO SCH (09:44)
[2021-01-05] MEDS: MULTIVITAMINS, THERA 1 EACH TAB PO SCH (09:45)
[2021-01-05] MEDS: LORATADINE 10 MG TAB PO SCH (09:45)
[2021-01-05] MEDS: methylPREDNISolone SOD SUCCI 40 MG/ML 1 ML VIAL IV SCH (09:45)
[2021-01-05] MEDS: NYSTATIN 100,000 UNIT/ML SUSP 500,000 UNIT/5 ML CUP PO SCH (09:45)
[2021-01-05] MEDS: FLUTICASONE 50MCG/SPRAY NASAL 16GM EA NOSTRIL SCH (09:45)
[2021-01-05] MEDS: VERAPAMIL 80 MG TAB PO SCH ×2 (09:45→17:03)
[2021-01-05] MEDS: THEOPHYLLINE 24 HOUR 400 MG CAP.ER.24H PO SCH (09:45)
[2021-01-05] MEDS: POTASSIUM CHLORIDE ER 10 MEQ TAB.ER.PRT PO SCH (09:45)
[2021-01-05] MEDS ORDERED: predniSONE 20 MG TAB PO SCH (10:15)
--- NOTE | 2021-01-05 10:43 | XR ---
EXAMINATION TYPE: XR abdomen 1V DATE OF EXAM: 01/05/2021 10:20 AM CLINICAL HISTORY: Distention. TECHNIQUE: Two portable supine KUB images of the abdomen are obtained. COMPARISON: Abdominal x-ray January 02, 2018. CTA chest 2 days ago.. FINDINGS: New mild to moderately gas-distended stomach. Some gas slightly prominent small bowel loops in the left mid to lower abdomen. Lung bases are clear. Slight scoliotic curvature. Moderate axial j oint space loss both hips. IMPRESSION: Overall nonspecific favor nonobstructive bowel gas pattern.
[2021-01-05 11:18] LABS: Potassium 3.5 mmol/L (3.5-5.1)
[2021-01-05 11:20] LABS: Calcium 9.5 mg/dL (8.4-10.2)
[2021-01-05 11:37] LABS: Glucose,Whole Blood 211 mg/dL (75-99)
[2021-01-05 12:47] VITALS: BP 135/62; TEMP 98.2
--- NOTE | 2021-01-05 13:10 | P.PN ---
Subjective Progress Note Date: 01/05/21 HISTORY OF PRESENT ILLNESS: 01/03/2021 This is a 65-year-old female with a past medical history significant for COPD, DVT, hypertension, rheumatoid arthritis, home oxygen use, and previous nicotine dependence. Patient does not follow with a supervisor [employer]. We have been asked to see the patient in consultation for possible atrial fibrillation. Patient examined at the bedside. Patient is admitted to the hospital secondary to COPD exacerbation. patient denies chest pain or pressure. She reports mild shortness of breath. She is receiving IV steroids per pulmonary. She denies palpi tations. Potassium 3.0. Magnesium 2.1. EKG reveals sinus tachycardia with PACs Chest xray probable basilar atelectasis. Cardiomegaly Laboratory data: WBC 11.4. Hemoglobin 9.7. Platelet count 443. Sodium 136. Potassium 3.0. BUN 48. Creatinine 1.09. BNP 304 Current home cardiac medications include Zaroxolyn 2.5 mg daily, nifedipine 90 mg daily, metoprolol tartrate 12.5 mg twice a day, losartan 50 mg daily and Lasix 40 mg daily Echocardiogram completed revealed ejection fraction 60-65%, trace to mild mitral regurgitation, mild tricuspid regurgitation, and moderate pulmonary hypertension 01/04/2021 Patient examined at the bedside. She denies chest pain or pressure. Telemetry reviewed without evidence of atrial fibrillation. Potassium 3.5. Magnesium 2.0. BUN 51. Creatinine 1.25. Patient's Lasix has been discontinued per pulmonary. 01/05/2021 Patient examined this morning at the bedside. She denies chest pain or pressure. Patient's Lasix remains on hold secondary to kidney function. Creatinine 1.21. BUN 45. Patient is complaining of a lot of abdominal bloating today. PHYSICAL EXAM: VITAL SIGNS: Reviewed. GENERAL: Well-developed in no acute distress. HEENT: Head is normocephalic. Pupils are equal, round. Sclerae anicteric. Mucous membranes of the mouth are moist. Neck supple. No JVD or thyromegaly LUNGS: Respirations even and unlabored. Lungs with expiratory wheezing bilaterally HEART: Regular rate and rhythm. S1 and S2 heard. ABDOMEN: Soft. Nondistended. Nontender. EXTREMITIES: Normal range of motion. No clubbing or cyanosis. Peripheral pulses intact. 1-2+ bilateral lower extremity edema NEUROLOGIC: Awake and alert. Oriented x 3. ASSESSMENT: Acute exacerbation of COPD Sinus tachycardia with PACs, atrial fibrillation ruled out Hypertension Chronic hypoxic respiratory failure, on home oxygen Hypokalemia Lower extremity edema PLAN: Continue telemetry monitoring May continue to hold Lasix Apply AIMEE hose to lower extremities Pulmonary following Obtain abdominal xray Continue current cardiac medications Further recommendations pending patient course Nurse practitioner note has been reviewed by physician. Signing provider agrees with the documented findings, assessment, and plan of care. Objective - Vital Signs Vital signs: Vital Signs Temp 98.2 F 01/05/21 12:00 Pulse 101 H 01/05/21 12:00 Resp 16 01/05/21 12:00 BP 135/62 01/05/21 12:00 Pulse Ox 93 L 01/05/21 12:00 Intake & Output 01/04/21 01/05/21 01/05/21 18:59 06:59 18:59 Intake Total 1060 60 Output Total 1780 800 Balance -720 -740 Weight 89.7 kg Intake: IV 60 0.9 60 Intake, IV Titration 100 Amount Ampicillin-Sulbactam 3 gm 100 In Sodium Chloride 0.9% 100 ml @ 200 mls/hr IVPB Q8H [facility] Rx#:[id number] Oral 960 Output: Urine 1780 800 Other: Voiding Method Indwelling Catheter Indwelling Catheter - Labs CBC & Chem 7: 01/03/21 09:40 01/05/21 10:33 Labs: Abnormal Lab Results - Last 24 Hours (Table) 01/04/21 01/04/21 01/05/21 Range/Units 16:37 20:35 06:17 Sodium (137-145) mmol/L Chloride (98-107) mmol/L Carbon Dioxide (22-30) mmol/L BUN (7-17) mg/dL Creatinine (0.52-1.04) mg/dL Glucose (74-99) mg/dL POC Glucose (mg/dL) 176 H 197 H 245 H (75-99) mg/dL 01/05/21 01/05/21 Range/Units 10:33 11:36 Sodium 134 L (137-145) mmol/L Chloride 83 L (98-107) mmol/L Carbon Dioxide 40 H (22-30) mmol/L BUN 45 H (7-17) mg/dL Creatinine 1.21 H (0.52-1.04) mg/dL Glucose 201 H (74-99) mg/dL POC Glucose (mg/dL) 211 H (75-99) mg/dL Microbiology - Last 24 Hours (Table) 12/30/20 13:41 Blood Culture - Preliminary Blood No Growth after 120 hours 12/30/20 13:56 Blood Culture - Preliminary Blood No Growth after 120 hours
--- NOTE | 2021-01-05 13:23 | P.DS ---
Providers Date of admission: 12/30/20 15:03 Expected date of discharge: 01/05/21 Attending physician: Logan Parikh MD Consults: 12/30/20 15:05 Consult Physician Routine Consulting Provider: Jose Elias Goodman Consult Reason/Comments: COPD exacerbation Do you want consulting provider notified?: Yes 12/30/20 17:41 Consult Physician Routine Consulting Provider: Raman Huff Consult Reason/Comments: sepsis Do you want consulting provider notified?: Yes 01/02/21 11:56 Consult Physician Routine Consulting Provider: Mark Ferrer Consult Reason/Comments: afib Do you want consulting provider notified?: Yes Primary care physician: Yoel Jacobo Hospital Course: Final diagnosis Chronic obstructive pulmonary disease exacerbation with acute purulent tracheobronchitis with acute hypoxic respiratory failure with possible severe sepsis, present on admission Hypotension secondary to sepsis, present on admission Erica albicans in the sputum as well as Klebsiella pneumonia and vancomycin sensitive enterococcus from the urine Anemia of undetermined etiology Hyponatremia acute renal failure with acute tubular necrosis, present on admission Chronic kidney disease stage III baseline Pulmonary hypertension Increased white blood count Hypokalemia history of deep vein thrombosis hypertension history of pneumonia history of rheumatoid arthritis history of colitis History of osteopenia History of chronic hypoxic respiratory failure Appendectomy history bowel resection history of degenerative joint disease History of ADHD history of anxiety disorder Remote history of nicotine dependence Obesity with a body mass index of 34 Gait dysfunction Discharge disposition Patient is being discharged in a stable condition with guarded prognosis to [facility] for continued PT/OT therapy. Patient will follow-up with Dr. Jacobo in the outpatient setting upon discharge. Patient will also need cardiology and pulmonary follow-up outpatient. she will continue on oral antibiotics in the form of Augmentin twice daily for the next 1 week along with a prednisone taper. Total time taken is greater than 35 minutes. Hospital course This is a 65-year-old female who was recently admitted with chronic obstructive pulmonary disease acute exacerbation also hypertension, sepsis, and multiple complex medical issues. Patient is being closely monitored. Patient had some sputum cultures showing Erica albicans along with urine culture showing Klebsiella pneumonia along with enterococcus and blood cultures negative. Patient's sputum showing Erica albicans and will continue with Diflucan for 1 week and then may discontinue. Infectious disease following and patient is maintained on IV Unasyn and will continue at this time. Patient was receiving IV Lasix for bilateral lower extremity edema which has been discontinued. Multiple medical consultations following including pulmonary and cardiology. Patient underwent chest CTA yesterday showing no evidence of PE with some interstitial reticular pulmonary density consistent with pulmonary fibrosis and subsegmental atelectasis with no suspicious pulmonary mass noted, and increased pulmonary infiltrates and atelectasis compared to previous exam. Patient is afebrile. No reports of nausea or vomiting noted. Patient is Dyspneic with exertion and with minimal conversation. Social work also following as patient will be returning to [facility] upon discharge. 01/05/2021 Patient is seen and evaluated in follow-up continues to be weak and physical therapy has evaluated the patient recommending subacute rehab. Cardiology and pulmonary following and patient is to continue holding Lasix and elevate lower extremities with compression stockings while at rest and recommend repeat labs in 2-3 days to monitor kidney functions. Current creatinine is 1.21 and will hold Lasix 20 mg daily for the next 3 days and repeat labs and then may resume Lasix. She also continue on breathing inhalational treatments along with prednisone taper upon discharge. Patient's urine culture finalized showing Klebsiella pneumonia and enterococcus and infectious disease following. Patient was maintained on IV antibiotics and will transition to oral Augmentin twice daily for the next 1 week and then may discontinue. She will need pulmonary and cardiology outpatient follow-up. Currently no reports of chest pain, worsening shortness of breath, or palpitations. Patient is afebrile. No reports of nausea or vomiting and patient is tolerating diet. Patient will be going to [facility] today. Guarded prognosis. On exam vital signs are stable. Respiratory system shows diminished breath sounds at the bases with some expiratory wheezing noted. Abdomen is soft and nontender. Nervous system shows diffuse weakness. Please refer to medication reconciliation sheet for a list of medications. Patient Condition at Discharge: Fair Plan - Discharge Summary Discharge Rx Participant: No New Discharge Prescriptions: New Amoxic-Pot Clav 875-125Mg [Augmentin 875-125] 1 tab PO Q12HR 7 Days #14 tab Fluconazole [Diflucan] 100 mg PO Q24H tab Ipratropium-Albuterol Nebulize [Duoneb 0.5 mg-3 mg/3 ml Soln] 3 ml INHALATION RT-QID PRN ml PRN Reason: Shortness Of Breath Or Wheezing Verapamil [Isoptin] 80 mg PO TID tab Nystatin 100,000 Unit/ml Susp [Mycostatin Oral Susp] 500,000 unit PO TID ml INSULIN ASPART (NovoLOG) [NovoLOG (formulary)] 0 unit SQ ACHS vial predniSONE 10 mg PO DIRECTED #30 tab Budesonide [Pulmicort] 1 mg INHALATION RT-BID ml guaiFENesin SYRUP 100MG/5ML [Robitussin] 200 mg PO Q6H PRN ml PRN Reason: Cough ALPRAZolam [Xanax] 0.25 mg PO TID PRN #10 tab PRN Reason: Anxiety Continue rOPINIRole HCL [Requip] 0.5 mg PO HS@2000 Cholecalciferol [Vitamin D3 (25 Mcg = 1000 Iu)] 50 mcg PO DAILY@0700 Ipratropium-Albuterol Nebulize [Duoneb 0.5 mg-3 mg/3 ml Soln] 3 ml INHALATION RT-Q4H Montelukast [Singulair] 10 mg PO HS #30 tab Magnesium Oxide [Mag-Ox] 400 mg PO DAILY Loratadine [Claritin] 10 mg PO DAILY Melatonin 3 mg PO HS Sodium Chloride [[place]] 2 spray EA NOSTRIL Q2H PRN PRN Reason: Dry Nasal Passages Acetaminophen Tab [Tylenol] 650 mg PO Q4H PRN PRN Reason: Pain Fluticasone Nasal [place] [Flonase Nasal [place]] 1 spr EA NOSTRIL BID Theophylline 24 Hour [Sekou-24] 400 mg PO DAILY Pantoprazole Sodium [Protonix] 40 mg PO DAILY@0700 Potassium Chloride 8 meq PO DAILY Multivitamins, Thera [Multivitamin (formulary)] 1 tab PO DAILY Morphine Sulfate [Ms Contin] 15 mg PO BID@0700,1900 #4 tab Gabapentin [Neurontin] 100 mg PO TID@0700,1300,1900 #10 cap Changed Furosemide [Lasix] 20 mg PO DAILY #0 Discontinued predniSONE See Taper PO DAILY@0700 LORazepam 0.25 mg PO BID PRN PRN Reason: Anxiety Cephalexin [Keflex] 500 mg PO TID@0700,1300,1900 Metoprolol Tartrate [Lopressor] 12.5 mg PO BID@0700,1900 NIFEdipine [NIFEdipine ER] 90 mg PO DAILY@0700 metOLazone [Zaroxolyn] 2.5 mg PO DAILY@0500 Losartan [Cozaar] 50 mg PO DAILY@0700 Levofloxacin [Levaquin] 500 mg PO DAILY@0700 Discharge Medication List rOPINIRole HCL [Requip] 0.5 mg PO HS@199903/24/20 [History] Cholecalciferol [Vitamin D3 (25 Mcg = 1000 Iu)] 50 mcg PO DAILY@0700 04/08/20 [History] Ipratropium-Albuterol Nebulize [Duoneb 0.5 mg-3 mg/3 ml Soln] 3 ml INHALATION RT-Q4H 04/18/20 [History] Montelukast [Singulair] 10 mg PO HS #30 tab 04/22/20 [Rx] Magnesium Oxide [Mag-Ox] 400 mg PO DAILY 09/15/20 [History] Loratadine [Claritin] 10 mg PO DAILY 10/11/20 [History] Melatonin 3 mg PO HS 10/11/20 [History] Acetaminophen Tab [Tylenol] 650 mg PO Q4H PRN 12/30/20 [History] Fluticasone Nasal [place] [Flonase Nasal [place]] 1 spr EA NOSTRIL BID 12/30/20 [History] Multivitamins, Thera [Multivitamin (formulary)] 1 tab PO DAILY 12/30/20 [History] Pantoprazole Sodium [Protonix] 40 mg PO DAILY@0700 12/30/20 [History] Potassium Chloride 8 meq PO DAILY 12/30/20 [History] Sodium Chloride [[place]] 2 spray EA NOSTRIL Q2H PRN 12/30/20 [History] Theophylline 24 Hour [Seoku-24] 400 mg PO DAILY 12/30/20 [History] ALPRAZolam [Xanax] 0.25 mg PO TID PRN #10 tab 01/05/21 [Rx] Amoxic-Pot Clav 875-125Mg [Augmentin 875-125] 1 tab PO Q12HR 7 Days #14 tab 01/05/21 [Rx] Budesonide [Pulmicort] 1 mg INHALATION RT-BID ml 01/05/21 [Rx] Fluconazole [Diflucan] 100 mg PO Q24H tab 01/05/21 [Rx] Furosemide [Lasix] 20 mg PO DAILY #0 01/05/21 [Rx] Gabapentin [Neurontin] 100 mg PO TID@0700,1300,1900 #10 cap 01/05/21 [Rx] INSULIN ASPART (NovoLOG) [NovoLOG (formulary)] 0 unit SQ ACHS vial 01/05/21 [Rx] Ipratropium-Albuterol Nebulize [Duoneb 0.5 mg-3 mg/3 ml Soln] 3 ml INHALATION RT-QID PRN ml 01/05/21 [Rx] Morphine Sulfate [Ms Contin] 15 mg PO BID@0700,1900 #4 tab 01/05/21 [Rx] Nystatin 100,000 Unit/ml Susp [Mycostatin Oral Susp] 500,000 unit PO TID ml 01/05/21 [Rx] Verapamil [Isoptin] 80 mg PO TID tab 01/05/21 [Rx] guaiFENesin SYRUP 100MG/5ML [Robitussin] 200 mg PO Q6H PRN ml 01/05/21 [Rx] predniSONE 10 mg PO DIRECTED #30 tab 01/05/21 [Rx] Follow up Appointment(s)/Referral(s): Yoel Jacobo MD [Primary Care Provider] - 1-2 days Ambulatory/Diagnostic Orders: Basic Metabolic Panel [LAB.AMB] Time Frame: 3 Days, Location: None Selected Activity/Diet/Wound Care/Special Instructions: Patient is going to [facility] Activity as tolerated Geremias with consistent carbohydrate fluid restrictions of 1200 mL daily diet Follow-up cardiology outpatient Follow-up pulmonary outpatient Continue to monitor blood sugars before meals and at bedtime and treat accordingly with sliding scale NovoLog sliding scale 0-150 equals 0 units 151-200 equals 2 units 201-250 equals 4 units 251-300 equals 6 units 301-350 equals 8 units 351-400 equals 10 units Please notify provider if blood sugar is 400 or above Continue with antibiotics for 1 week and then may discontinue Continue prednisone taper Continue to hold Lasix 20 mg for the next 3 days and repeat labs to monitor creatinine and then may resume Lasix 20 mg daily Elevate lower extremities while at rest along with upper extremities Discharge Disposition: TRANSFER TO SNF/ECF
--- NOTE | 2021-01-05 14:05 | PN ---
PROGRESS NOTE DATE OF SERVICE: 01/05/2021 REASON FOR FOLLOWUP: Enterococcus urinary tract infection. INTERVAL HISTORY: The patient is currently afebrile. The patient is breathing slightly comfortably. Denies any chest pain. Occasional cough. No abdominal pain. No diarrhea. PHYSICAL EXAMINATION: Blood pressure 135/62 with a pulse of 101, temperature 98.2. She is 93% on 3 L nasal cannula. General description is an elderly female lying in bed in no distress. RESPIRATORY SYSTEM: Unlabored breathing, decreased intense breath sounds. No wheeze. HEART: S1, S2. Regular rate and rhythm. ABDOMEN: Soft, no tenderness. LABS: Acute abdominal series did show nonobstructive bowel gas pattern. Creatinine is 1.21. Sputum with Erica. DIAGNOSTIC IMPRESSION AND PLAN: Patient is Klebsiella pneumoniae, Enterococcus urinary tract infection covered with Unasyn, to finish a short course of oral Augmentin. Discussed with the nurse practitioner for admitting team. MMODL / IJN: [id number] / [id number]
--- NOTE | 2021-01-05 15:13 | P.PN ---
Subjective Progress Note Date: 01/05/21 Principal diagnosis: Acute on chronic hypoxic respiratory failure secondary to acute exacerbation of COPD. 65-year-old female patient with advanced COPD, evaluated, listed and sub sequently taken off lung transplantation as the patient was becoming progressively more debilitated and she was not found to be a good candidate for his mentation. trasnsplant comes into the hospital because of worsening shortness of breath a few days duration. No chest pain. No pleurisy. No hemo ptysis. a she also had some yellowish sputum production and fever with a temperature of 103.5. She came into the emergency department because of these symptoms COVID 19 testing was negative. The chest x-ray showed COPD without any acute abnormalities. H . She is known to have an FEV1 of 27% of predicted and she has chronic hypoxic respiratory failure admitted on oxygen at 2 L per minute nasal cannula. She has other comorbidities including RA, hypertension, and previous history of vulvar cancer. She has been maintained on a combination of Perforomist and Pulmicort nebulized treatments twice today and Yupelri nebulized treatments in addition to albuterol updrafts [id number] has had multiple hospitalizations for COPD exacerbation. She is maintained on prednisone 2.5 mg on a daily basis and she also takes theophylline 400 mg by mouth daily. He had noted the patient's last hospitalization [facility] was in October 2020. Following that she was hospitalized again at [facility] for another COPD exacerbation and following that she was transferred to [facility] she also had developed increased swelling in lower extremities and the skin over the left foot has blisters because of the excessive edema. She currently has a Altamirano catheter in place. His taken diuretics in the form of oral Lasix at the [facility]. She was taken Lasix 40 mg by mouth daily and Zaroxolyn 2.5 mg by mouth daily. 01/01/2021 the patient is diuresing adequately and she is responding to the diuretics. She is feeling slightly less short of breath compared to yesterday. I have on Lasix 40 mg IV she'll 12 hours and the patient is also on bronchodilators and systemic steroids. Oxygen levels have been reduced down to 5 L of oxygen by nasal cannula. She is tolerating her diet. No nausea. No vomiting. No diarrhea. No abdominal pain. Fluid balance is been negative and the patient has lost weight and currently she is waiting 77 kg. Urine culture is positive for gram-negative bacillus and the patient is currently on IV cefepime and Levaquin and we broadened antibiotic coverage and the patient was in a [facility] prior to her coming to us to the hospital. 01/02/2021, the patient continues to be on diuretics and she is diuresing aggressively while being on Lasix 40 mg every 12 hours pH is down to 3 visible action by nasal cannula. Her BUN is at 39 with a creatinine of 1.1 and her renal function is improved. Potassium level is at 3.1 which is essentially due to diuresis diuresis and the patient's bicarb level is 32. Fluid balance has been negative over the past 48 hours and the patient is producing another 2.5 L of negative fluid balance over the past 24 hours. Urine culture was positive for gram-negative bacillus and the final cultures came back positive for enteral caucus faecalis and Klebsiella and the cultures and sensitivities were noted. The patient is currently on a combination of cefepime and Levaquin. And based on the sensitivity, antibiotic coverage is adequate for now. She is afebrile. She is hemodynamically stable. No fever. No leukocytosis. The patient's rhythm is irregular today and there is suspicion that she may be in atrial fibrillation. We'll follow a 12-lead EKG to rule out the possibility of atrial fibrillation. Potassium level needs to be replaced as the level is at 3.1. Patient was reevaluated today on 01/03/2021, remains in the ICU, remains on bronchodilators and diuretics. She is on 3 L nasal cannula, O2 saturations 94% patient remains on bronchodilators in the form of Pulmicort, DuoNeb, Perforom ist, and she is on IV Solu-Medrol 60 mg IV push every 6 hours, she is also on diuretics. She is also on theophylline. Her urine culture was positive for Enterococcus faecalis, and Klebsiella. Hence Unasyn was started by infectious disease on the case today. Mostly because her enterococcus is sensitive to ampicillin. CBC is relatively normal lites are normal except for low potassium of 3.0 the UN is 48 creatinine is 1.09. Patient was reevaluated today on 01/04/2021, continues to do poorly, continues to complain of shortness of breath, cough wheezing, and now she has fullness and pressure like feeling in her upper abdomen. Patient had a CT angiogram of the chest yesterday, ruled out pulmonary embolism, and felt that her pain was not pulmonary in nature. Patient is mostly on pain medications as per her admitting physician. Patient remains on multiple bronchodilators, antibiotics, today I held back her diuretics mostly because of her worsening renal functioning. Patient was reevaluated today on 01/05/2021, patient seems to be doing better, continues to have some cough and wheezing, but improved compared to the last few days since admission. Patient is now on oral medication including prednisone burst and taper, she is maximized on bronchodilators and her usual meds including theophylline, she is also on antibiotics, and I believe the patient could be considered to discharge to rehab or [facility] either today or in the next 24 hours. Objective - Vital Signs Vital signs: Vital Signs Temp 98.2 F 01/05/21 12:00 Pulse 101 H 01/05/21 12:00 Resp 16 01/05/21 12:00 BP 135/62 01/05/21 12:00 Pulse Ox 93 L 01/05/21 12:00 Intake & Output 01/04/21 01/05/21 01/05/21 18:59 06:59 18:59 Intake Total 1060 60 Output Total 1780 800 Balance -720 -740 Weight 89.7 kg Intake: IV 60 0.9 60 Intake, IV Titration 100 Amount Ampicillin-Sulbactam 3 gm 100 In Sodium Chloride 0.9% 100 ml @ 200 mls/hr IVPB Q8H [facility] Rx#:[id number] Oral 960 Output: Urine 1780 800 Other: Voiding Method Indwelling Catheter Indwelling Catheter Indwelling Catheter - Exam GENERAL EXAM: Alert, very pleasant, 65-year-old white female, on 3 L of oxygen with pulse ox of 95% comfortable in no apparent distress. HEAD: Normocephalic/atraumatic. EENT: Patient is cushingoid, PERRLA, EOMI, nonicteric, moist mucous membranes, throat is clear. CHEST: No chest wall deformity. Symmetrical expansion. LUNGS: Equal air entry minimal wheezing on forced expiratory maneuver. CVS: Regular rate and rhythm, normal S1 and S2, no gallops, no murmurs, no rubs ABDOMEN: Soft, nontender. No hepatosplenomegaly, normal bowel sounds, no guarding or rigidity. EXTREMITIES: No clubbing, increased edema lower extremities bilaterally, no cyanosis, 2+ pulses and upper and lower extremities. MUSCULOSKELETAL: Muscle strength and tone normal. SKIN: No rashes, positive skin blistering vesicle formation over the anterior aspect of the left foot CENTRAL NERVOUS SYSTEM: Alert and oriented -3. No focal deficits, tone is normal in all 4 extremities. PSYCHIATRIC: Alert and oriented -3. Appropriate affect. Intact judgment and insight. - Labs CBC & Chem 7: 01/03/21 09:40 01/05/21 10:33 Labs: Abnormal Lab Results - Last 24 Hours (Table) 01/04/21 01/04/21 01/05/21 Range/Units 16:37 20:35 06:17 Sodium (137-145) mmol/L Chloride (98-107) mmol/L Carbon Dioxide (22-30) mmol/L BUN (7-17) mg/dL Creatinine (0.52-1.04) mg/dL Glucose (74-99) mg/dL POC Glucose (mg/dL) 176 H 197 H 245 H (75-99) mg/dL 01/05/21 01/05/21 Range/Units 10:33 11:36 Sodium 134 L (137-145) mmol/L Chloride 83 L (98-107) mmol/L Carbon Dioxide 40 H (22-30) mmol/L BUN 45 H (7-17) mg/dL Creatinine 1.21 H (0.52-1.04) mg/dL Glucose 201 H (74-99) mg/dL POC Glucose (mg/dL) 211 H (75-99) mg/dL Microbiology - Last 24 Hours (Table) 12/30/20 13:41 Blood Culture - Preliminary Blood No Growth after 120 hours 12/30/20 13:56 Blood Culture - Preliminary Blood No Growth after 120 hours Assessment and Plan Assessment: Impression: Acute exacerbation of COPD Acute on chronic hypoxic respiratory failure secondary to COPD, FEV1 is 27%. Remote history of deep vein thrombosis. Negative CT angiogram of the chest on this admission. Chronic hypoxic respiratory failure. Benign essential hypertension. Remote smoking history. Oropharyngeal candidiasis. Acute urinary tract infection secondary to Klebsiella and enterococcus. Extremes debility. Chronic cor pulmonale. 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 History of right colectomy and subsequent wound dehiscence and reclosure for small bowel obstruction. Recommendation: Switch medications to oral meds. Including Solu-Medrol to prednisone. Resume home meds. Consider discharge planning to a rehab facility. Follow-up on outpatient basis with Dr. Goodman. Overall long-term prognosis remains poor and guarded.Obviously the patient has severe end-stage COPD, and she would likely not do well in the long-term. Time with Patient: Less than 30
[2021-01-05 15:22] VITALS: PULSE 89
[2021-01-05] MEDS: ALPRAZolam 0.25 MG TAB PO PRN (17:03)
== END 2021-01-05 17:29 | DRG 871 ==
LOC: EC 13:41 → 3SCARD 15:03
PROVIDERS: ADMIT Internal Medicine; ATTEND Internal Medicine
DX: A41.9 Sepsis, unspecified organism (principal); J80 Acute respiratory distress syndrome; N17.0 Acute kidney failure with tubular necrosis; B37.0 Candidal stomatitis; B37.89 Other sites of candidiasis; E87.1 Hypo-osmolality and hyponatremia; J44.0 Chronic obstructive pulmonary disease with (acute) lower respiratory infection; J44.1 Chronic obstructive pulmonary disease with (acute) exacerbation; J98.11 Atelectasis; L03.115 Cellulitis of right lower limb; L03.116 Cellulitis of left lower limb; N39.0 Urinary tract infection, site not specified; B95.2 Enterococcus as the cause of diseases classified elsewhere; B96.1 Klebsiella pneumoniae [K. pneumoniae] as the cause of diseases classified elsewhere; B96.89 Other specified bacterial agents as the cause of diseases classified elsewhere; D63.1 Anemia in chronic kidney disease; E66.9 Obesity, unspecified; E87.6 Hypokalemia; G25.81 Restless legs syndrome; Z20.822 Contact with and (suspected) exposure to COVID-19; I12.9 Hypertensive chronic kidney disease with stage 1 through stage 4 chronic kidney disease, or unspecified chronic kidney disease; I27.29 Other secondary pulmonary hypertension; I27.81 Cor pulmonale (chronic); I48.91 Unspecified atrial fibrillation; J20.9 Acute bronchitis, unspecified; M06.9 Rheumatoid arthritis, unspecified; M85.80 Other specified disorders of bone density and structure, unspecified site; N18.30 Chronic kidney disease, stage 3 unspecified; S90.822A Blister (nonthermal), left foot, initial encounter; T50.2X5A Adverse effect of carbonic-anhydrase inhibitors, benzothiadiazides and other diuretics, initial encounter; Z68.34 Body mass index [BMI] 34.0-34.9, adult; Z79.52 Long term (current) use of systemic steroids; Z79.899 Other long term (current) drug therapy; Z80.0 Family history of malignant neoplasm of digestive organs; Z80.49 Family history of malignant neoplasm of other genital organs; Z82.5 Family history of asthma and other chronic lower respiratory diseases; Z85.038 Personal history of other malignant neoplasm of large intestine; Z85.44 Personal history of malignant neoplasm of other female genital organs; Z86.718 Personal history of other venous thrombosis and embolism; Z87.01 Personal history of pneumonia (recurrent); Z87.891 Personal history of nicotine dependence; Z90.49 Acquired absence of other specified parts of digestive tract; Z90.710 Acquired absence of both cervix and uterus; Z90.721 Acquired absence of ovaries, unilateral; Z96.651 Presence of right artificial knee joint; Z99.81 Dependence on supplemental oxygen; I49.1 Atrial premature depolarization; R26.9 Unspecified abnormalities of gait and mobility
CPT/HCPCS: 36415; 71045; 71046; 71275; 74018; 80048; 80053; 80198; 81001; 82550; 82803; 83605; 83735; 83880; 84132; 84145; 84484; 85025; 85610; 85730; 86850; 86900; 86901; 86920; 87040; 87070; 87077; 87086; 87186; 87205; 87502; 87635; 93005; 93306; 94640; 94760; 96361; 96374; 96375; 99291

== ENCOUNTER 2021-01-15 10:30 | Inpatient (IN) | payer MEDICARE, OTHER ==
[2021-01-15] MEDS ORDERED: ALBUTEROL HFA INHALER INHALATION STA (10:38)
[2021-01-15] MEDS ORDERED: FUROSEMIDE 10 MG/ML 4 ML VIAL IV STA (10:38)
[2021-01-15] MEDS ORDERED: ACETAMINOPHEN TAB 325 MG TAB PO STA (10:40)
--- NOTE | 2021-01-15 10:48 | ED ---
SOB HPI - General Chief Complaint: Shortness of Breath Stated Complaint: +COVID,SOB Time Seen by Provider: 01/15/21 10:30 Source: patient, EMS, RN notes reviewed, old records reviewed Mode of arrival: EMS Limitations: no limitations - History of Present Illness Initial Comments: This is a 65-year-old female with a history of COPD and interstitial lung d zoran who was on a transplant list at one point is now no longer on the lung transplant list who complained of shortness of breath and cough this morning she had a fever also she was tested and found to be Covid 19 positive . Pulse ox of 90% room air which increased to 93 and 4 L. She has some lethargy. She was found have a blood pressure 157/65 per paramedics she also demonstrated a right lower lobe crackles. She received 2 updraft treatments with minimal effect at the alf. She was brought in by EMS. MD Complaint: shortness of breath, cough - Related Data Home Medications Medication Instructions Recorded Confirmed rOPINIRole HCL [Requip] 0.5 mg PO HS@2100 03/24/20 01/15/21 Cholecalciferol [Vitamin D3 (25 25 mcg PO DAILY@0700 04/08/20 01/15/21 Mcg = 1000 Iu)] Ipratropium-Albuterol Nebulize 3 ml INHALATION RT-Q4H 04/18/20 01/15/21 [Duoneb 0.5 mg-3 mg/3 ml Soln] Magnesium Oxide [Mag-Ox] 400 mg PO DAILY@1700 09/15/20 01/15/21 Loratadine [Claritin] 10 mg PO DAILY@0800 10/11/20 01/15/21 Melatonin 3 mg PO HS 10/11/20 01/15/21 Acetaminophen Tab [Tylenol] 650 mg PO Q4H PRN 12/30/20 01/15/21 Fluticasone Nasal [place] [Flonase 1 spr EA NOSTRIL DAILY@0812/30/20 01/15/21 Nasal [place]] Multivitamins, Thera [Multivitamin 1 tab PO DAILY@1700 12/30/20 01/15/21 (formulary)] Pantoprazole Sodium [Protonix] 40 mg PO DAILY@0600 12/30/20 01/15/21 Potassium Chloride 8 meq PO DAILY@1700 12/30/20 01/15/21 Sodium Chloride [Raven] 2 spray EA NOSTRIL Q2H PRN 12/30/20 01/15/21 Theophylline 24 Hour [Sekou-24] 400 mg PO DAILY@0800 12/30/20 01/15/21 Budesonide [Pulmicort] 1 mg INHALATION RT-BID@0800,1700 01/15/21 01/15/21 DULoxetine HCL [Cymbalta] 30 mg PO DAILY@0800 01/15/21 01/15/21 Eucerin Cream 1 applic TOPICAL BID 01/15/21 01/15/21 Furosemide [Lasix] 20 mg PO DIRECTED 01/15/21 01/15/21 Furosemide [Lasix] 40 mg PO DIRECTED 01/15/21 01/15/21 Gabapentin [Neurontin] 100 mg PO TID@0600,1400,2200 01/15/21 01/15/21 Glucerna Shake 120 ml PO BID@0800,2100 01/15/21 01/15/21 INSULIN ASPART (NovoLOG) [NovoLOG See Protocol SQ ACHS 01/15/21 01/15/21 (formulary)] Lidocaine 5% Patch [Lidoderm] 1 patch TOPICAL DAILY 01/15/21 01/15/21 Magnesium Hydroxide [Milk of 7,200 mg PO Q48H PRN 01/15/21 01/15/21 Magnesia Concentrate] Morphine Sulfate [Ms Contin] 15 mg PO BID@0800,2100 01/15/21 01/15/21 Na Phos,M-B/Na Phos,Di-Ba [Fleet 133 ml RECTAL DAILY PRN 01/15/21 01/15/21 Adult] Nystatin 100,000 Unit/ml Susp 500,000 unit PO TID@0800,1200,1700 01/15/21 01/15/21 [Mycostatin Oral Susp] Verapamil [Isoptin] 80 mg PO TID@0800,1200,1700 01/15/21 01/15/21 bisacodyL [Bisacodyl] 10 mg RECTAL DAILY PRN 01/15/21 01/15/21 predniSONE 5 mg PO DIRECTED 01/15/21 01/15/21 predniSONE See Taper PO DIRECTED 01/15/21 01/15/21 Previous Rx's Medication Instructions Recorded Montelukast [Singulair] 10 mg PO HS #30 tab 04/22/20 ALPRAZolam [Xanax] 0.25 mg PO TID PRN #10 tab 01/05/21 Amoxic-Pot Clav 875-125Mg 1 tab PO Q12HR 7 Days #14 tab 01/05/21 [Augmentin 875-125] Ipratropium-Albuterol Nebulize 3 ml INHALATION RT-QID PRN ml 01/05/21 [Duoneb 0.5 mg-3 mg/3 ml Soln] guaiFENesin SYRUP 100MG/5ML 200 mg PO Q6H PRN ml 01/05/21 [Robitussin] Allergies Allergy/AdvReac Type Severity Reaction Status Date / Time infliximab [From Remicade] Allergy Dyspnea/HIV Verified 01/15/21 10:45 ES propoxyphene [From Darvon] Allergy Rash/Hives Verified 01/15/21 10:45 adhesive tape AdvReac "is hard Verified 01/15/21 10:45 on skin" Review of Systems ROS Statement: Those systems with pertinent positive or pertinent negative responses have been documented in the HPI. ROS Other: All systems not noted in ROS Statement are negative. Past Medical History Past Medical History: Cancer, COPD, Deep Vein Thrombosis (DVT), Hypertension, Pneumonia, Rheumatoid Arthritis (RA) Additional Past Medical History / Comment(s): hearing difficulty currently, colitis, osteopenia, hx cancer of appendix, uses oxygen 2L continuous, waiting for lung transplant due to COPD. chronic back pain, restless leg, recent admission for exacerbation of COPD. past [employer] history: vulvar cancer in 2000 which was felt to be HPV related History of Any Multi-Drug Resistant Organisms: None Reported Past Surgical History: Appendectomy, Bowel Resection, Hysterectomy, Joint Replacement Additional Past Surgical History / Comment(s): Right knee replacement, EGD/colonoscopy, lasik eye surgery, right colectomy. Colonoscopy 2017. pain procedure at [facility] with Dr Ty. [facility] with unilateral oophorectomy 1983. Partial vulvectomy in 2000. Past Anesthesia/Blood Transfusion Reactions: No Reported Reaction Additional Past Anesthesia/Blood Transfusion Reaction / Comment(s): states is not supposed to have general anesthesia R/T awaiting lung transplant Past Psychological History: ADD/ADHD, Anxiety Smoking Status: Former smoker Past Alcohol Use History: None Reported Past Drug Use History: None Reported - Past Family History Father Family Medical History: Cancer, COPD Additional Family Medical History / Comment(s): COLON cancer Mother Family Medical History: Cancer Additional Family Medical History / Comment(s): ESOPHAGUS cancer Sister(s) Family Medical History: Cancer Additional Family Medical History / Comment(s): CERVICAL cancer General Exam - General Exam Comments Initial Comments: This a well-developed well-nourished awake alert oriented x 3 female Limitations: no limitations General appearance: alert, lethargic, in distress Head exam: Present: atraumatic, normocephalic, normal inspection Eye exam: Present: normal appearance, PERRL, EOMI. Absent: scleral icterus, conjunctival injection, periorbital swelling ENT exam: Present: mucous membranes dry Neck exam: Present: normal inspection. Absent: tenderness, meningismus, lymphadenopathy Respiratory exam: Present: wheezes, rales, decreased breath sounds. Absent: respiratory distress, rhonchi, stridor Cardiovascular Exam: Present: regular rate, normal rhythm, normal heart sounds. Absent: systolic murmur, diastolic murmur, rubs, gallop, clicks GI/Abdominal exam: Present: soft, normal bowel sounds. Absent: distended, tenderness, guarding, rebound, rigid Extremities exam: Present: full ROM, normal capillary refill, pedal edema. A bsent: tenderness, joint swelling, calf tenderness Back exam: Present: normal inspection Neurological exam: Present: alert, oriented X3, CN II-XII intact Psychiatric exam: Present: normal affect, normal mood Skin exam: Present: warm, dry, intact, normal color. Absent: rash Course Vital Signs 01/15/21 01/15/21 10:30 12:11 Temperature 104.3 F H 101.3 F H Pulse Rate 122 H 120 H Respiratory 18 30 H Rate Blood Pressure 139/69 O2 Sat by Pulse 91 L 93 L Oximetry Medical Decision Making - Medical Decision Making I did discuss findings with the patient as well as with Dr. Owusu patient is Covid positive as well as atypical pneumonia. Patient will be admitted the case was discussed with Dr. Owusu - Lab Data Result diagrams: 01/15/21 10:47 01/15/21 10:47 Lab Results 01/15/21 01/15/21 01/15/21 Range/Units 10:47 10:47 10:47 WBC 20.9 H (3.8-10.6) k/uL RBC 3.54 L (3.80-5.40) m/uL Hgb 9.9 L (11.4-16.0) gm/dL Hct 31.3 L (34.0-46.0) % MCV 88.4 (80.0-100.0) fL MCH 28.0 (25.0-35.0) pg MCHC 31.6 (31.0-37.0) g/dL RDW 18.3 H (11.5-15.5) % Plt Count 231 (150-450) k/uL MPV 8.0 Neutrophils % 89 % Lymphocytes % 6 % Monocytes % 4 % Eosinophils % 1 % Basophils % 0 % Neutrophils # 18.7 H (1.3-7.7) k/uL Lymphocytes # 1.2 (1.0-4.8) k/uL Monocytes # 0.8 (0-1.0) k/uL Eosinophils # 0.1 (0-0.7) k/uL Basophils # 0.0 (0-0.2) k/uL Hypochromasia Marked Anisocytosis Slight PT 9.7 (9.0-12.0) sec INR 0.9 (<1.2) APTT 22.9 (22.0-30.0) sec D-Dimer 1.12 H (<0.60) mg/L FEU Sodium 133 L (137-145) mmol/L Potassium 4.2 (3.5-5.1) mmol/L Chloride 86 L (98-107) mmol/L Carbon Dioxide 47 H* (22-30) mmol/L Anion Gap 0 mmol/L BUN 14 (7-17) mg/dL Creatinine 0.55 (0.52-1.04) mg/dL Est GFR (CKD-EPI)AfAm >90 (>60 ml/min/1.73 sqM) Est GFR (CKD-EPI)NonAf >90 (>60 ml/min/1.73 sqM) Glucose 118 H (74-99) mg/dL Plasma Lactic Acid Osmani (0.7-2.0) mmol/L Calcium 8.6 (8.4-10.2) mg/dL Magnesium 1.6 (1.6-2.3) mg/dL Total Bilirubin 0.4 (0.2-1.3) mg/dL AST 22 (14-36) U/L ALT 17 (4-34) U/L Alkaline Phosphatase 58 (38-126) U/L Lactate Dehydrogenase 906 H (313-618) U/L Creatine Kinase <20 L (30-135) U/L Troponin I (0.000-0.034) ng/mL C-Reactive Protein 211.7 H (<10.0) mg/L NT-Pro-B Natriuret Pep pg/mL Total Protein 5.3 L (6.3-8.2) g/dL Albumin 3.1 L (3.5-5.0) g/dL Urine Color Urine Appearance (Clear) Urine pH (5.0-8.0) Ur Specific [place] (1.001-1.035) Urine Protein (Negative) Urine Glucose (UA) (Negative) Urine Ketones (Negative) Urine Blood (Negative) Urine Nitrite (Negative) Urine Bilirubin (Negative) Urine Urobilinogen (<2.0) mg/dL Ur Leukocyte Esterase (Negative) Urine RBC (0-5) /hpf Urine WBC (0-5) /hpf Ur Squamous Epith Cells (0-4) /hpf Amorphous Sediment (None) /hpf Urine Mucus (None) /hpf 01/15/21 01/15/21 01/15/21 Range/Units 10:47 10:47 10:47 WBC (3.8-10.6) k/uL RBC (3.80-5.40) m/uL Hgb (11.4-16.0) gm/dL Hct (34.0-46.0) % MCV (80.0-100.0) fL MCH (25.0-35.0) pg MCHC (31.0-37.0) g/dL RDW (11.5-15.5) % Plt Count (150-450) k/uL MPV Neutrophils % % Lymphocytes % % Monocytes % % Eosinophils % % Basophils % % Neutrophils # (1.3-7.7) k/uL Lymphocytes # (1.0-4.8) k/uL Monocytes # (0-1.0) k/uL Eosinophils # (0-0.7) k/uL Basophils # (0-0.2) k/uL Hypochromasia Anisocytosis PT (9.0-12.0) sec INR (<1.2) APTT (22.0-30.0) sec D-Dimer (<0.60) mg/L FEU Sodium (137-145) mmol/L Potassium (3.5-5.1) mmol/L Chloride (98-107) mmol/L Carbon Dioxide (22-30) mmol/L Anion Gap mmol/L BUN (7-17) mg/dL Creatinine (0.52-1.04) mg/dL Est GFR (CKD-EPI)AfAm (>60 ml/min/1.73 sqM) Est GFR (CKD-EPI)NonAf (>60 ml/min/1.73 sqM) Glucose (74-99) mg/dL Plasma Lactic Acid Osmani 1.2 (0.7-2.0) mmol/L Calcium (8.4-10.2) mg/dL Magnesium (1.6-2.3) mg/dL Total Bilirubin (0.2-1.3) mg/dL AST (14-36) U/L ALT (4-34) U/L Alkaline Phosphatase (38-126) U/L Lactate Dehydrogenase (313-618) U/L Creatine Kinase (30-135) U/L Troponin I 0.019 (0.000-0.034) ng/mL C-Reactive Protein (<10.0) mg/L NT-Pro-B Natriuret Pep 331 pg/mL Total Protein (6.3-8.2) g/dL Albumin (3.5-5.0) g/dL Urine Color Urine Appearance (Clear) Urine pH (5.0-8.0) Ur Specific [place] (1.001-1.035) Urine Protein (Negative) Urine Glucose (UA) (Negative) Urine Ketones (Negative) Urine Blood (Negative) Urine Nitrite (Negative) Urine Bilirubin (Negative) Urine Urobilinogen (<2.0) mg/dL Ur Leukocyte Esterase (Negative) Urine RBC (0-5) /hpf Urine WBC (0-5) /hpf Ur Squamous Epith Cells (0-4) /hpf Amorphous Sediment (None) /hpf Urine Mucus (None) /hpf 01/15/21 Range/Units 11:20 WBC (3.8-10.6) k/uL RBC (3.80-5.40) m/uL Hgb (11.4-16.0) gm/dL Hct (34.0-46.0) % MCV (80.0-100.0) fL MCH (25.0-35.0) pg MCHC (31.0-37.0) g/dL RDW (11.5-15.5) % Plt Count (150-450) k/uL MPV Neutrophils % % Lymphocytes % % Monocytes % % Eosinophils % % Basophils % % Neutrophils # (1.3-7.7) k/uL Lymphocytes # (1.0-4.8) k/uL Monocytes # (0-1.0) k/uL Eosinophils # (0-0.7) k/uL Basophils # (0-0.2) k/uL Hypochromasia Anisocytosis PT (9.0-12.0) sec INR (<1.2) APTT (22.0-30.0) sec D-Dimer (<0.60) mg/L FEU Sodium (137-145) mmol/L Potassium (3.5-5.1) mmol/L Chloride (98-107) mmol/L Carbon Dioxide (22-30) mmol/L Anion Gap mmol/L BUN (7-17) mg/dL Creatinine (0.52-1.04) mg/dL Est GFR (CKD-EPI)AfAm (>60 ml/min/1.73 sqM) Est GFR (CKD-EPI)NonAf (>60 ml/min/1.73 sqM) Glucose (74-99) mg/dL Plasma Lactic Acid Osmani (0.7-2.0) mmol/L Calcium (8.4-10.2) mg/dL Magnesium (1.6-2.3) mg/dL Total Bilirubin (0.2-1.3) mg/dL AST (14-36) U/L ALT (4-34) U/L Alkaline Phosphatase (38-126) U/L Lactate Dehydrogenase (313-618) U/L Creatine Kinase (30-135) U/L Troponin I (0.000-0.034) ng/mL C-Reactive Protein (<10.0) mg/L NT-Pro-B Natriuret Pep pg/mL Total Protein (6.3-8.2) g/dL Albumin (3.5-5.0) g/dL Urine Color Colorless Urine Appearance Cloudy H (Clear) Urine pH 7.5 (5.0-8.0) Ur Specific [place] 1.004 (1.001-1.035) Urine Protein Negative (Negative) Urine Glucose (UA) Negative (Negative) Urine Ketones Negative (Negative) Urine Blood Small H (Negative) Urine Nitrite Negative (Negative) Urine Bilirubin Negative (Negative) Urine Urobilinogen <2.0 (<2.0) mg/dL Ur Leukocyte Esterase Negative (Negative) Urine RBC 14 H (0-5) /hpf Urine WBC 3 (0-5) /hpf Ur Squamous Epith Cells <1 (0-4) /hpf Amorphous Sediment Rare H (None) /hpf Urine Mucus Rare H (None) /hpf - EKG Data -: EKG Interpreted by Me EKG Comments: Sinus tachycardia rate 1.3. Interval 118 QRS 58 QT/QTC to 276/395 artifact present - Radiology Data Radiology results: report reviewed (Imaging reviewed (right lower lobe infiltrate consistent with atypical pneumonia. No evidence of PE.), image reviewed Critical Care Time Critical Care Time: Yes Total Critical Care Time: 37 Critical Care Time: Critical care time includes initial presentation with history physical labs x- rays multiple reevaluation the patient discussed with the patient regarding bibi lau review of old charting was available discussed with paramedics upon arrival was with the admitting physician admission orders and documentation of the above Disposition Clinical Impression: Right lower lobe pneumonia, COVID-19, Febrile illness, acute, COPD with exacerbation, Dehydration Disposition: ADMITTED IP TO THIS HOSP Condition: Fair Referrals: Davin Causey DO [STAFF PHYSICIAN] - 1-2 days
[2021-01-15 10:59] LABS: Anisocytosis Slight; Basophils % (A) 0 %; Eosinophils # (A) 0.1 k/uL (0-0.7); Eosinophils % (A) 1 %; HCT 31.3 % (34.0-46.0); HGB 9.9 gm/dL (11.4-16.0); Hypochromasia Marked; Lymphocytes # (A) 1.2 k/uL (1.0-4.8); Lymphocytes % (A) 6 %; MCHC 31.6 g/dL (31.0-37.0); MCV 88.4 fL (80.0-100.0); Monocytes # (A) 0.8 k/uL (0-1.0); Monocytes % (A) 4 %; Neutrophils # (A) 18.7 k/uL (1.3-7.7); Neutrophils % (A) 89 %; Platelet Count 231 k/uL (150-450); RBC 3.54 m/uL (3.80-5.40); RDW 18.3 % (11.5-15.5); WBC 20.9 k/uL (3.8-10.6)
[2021-01-15] MEDS ORDERED: cefTRIAXone IN SWFI 1,000 MG/10 ML SYRINGE IVP STA (11:01)
[2021-01-15 11:11] LABS: ALT 17 U/L (4-34); AST 22 U/L (14-36); African American GFR (CKD) >90 (>60 ml/min/1.73 sqM); Albumin 3.1 g/dL (3.5-5.0); Alkaline Phosphatase 58 U/L (38-126); Blood Urea Nitrogen 14 mg/dL (7-17); Calcium 8.6 mg/dL (8.4-10.2); Chloride 86 mmol/L (98-107); Creatine Kinase <20 U/L (30-135); Glucose 118 mg/dL (74-99); INR 0.9 (<1.2); LDH 906 U/L (313-618); Magnesium 1.6 mg/dL (1.6-2.3); Non-African American GFR(CKD) >90 (>60 ml/min/1.73 sqM); Partial Thromboplastin Time 22.9 sec (22.0-30.0); Potassium 4.2 mmol/L (3.5-5.1); Prothrombin Time 9.7 sec (9.0-12.0); Sodium 133 mmol/L (137-145); Total Bilirubin 0.4 mg/dL (0.2-1.3); Total Protein 5.3 g/dL (6.3-8.2)
[2021-01-15 11:13] LABS: D-Dimer 1.12 mg/L FEU (<0.60)
--- NOTE | 2021-01-15 11:14 | XR ---
EXAMINATION TYPE: XR chest 1V portable DATE OF EXAM: 01/15/2021 COMPARISON: 01/01/2021 INDICATION: Dyspnea TECHNIQUE: Single frontal view of the chest is obtained. FINDINGS: The heart size is normal. The pulmonary vasculature is normal. Right lower lobe consolidation is present. Correlate for pneumonia. Atypical pneumonia should be cons idered. IMPRESSION: 1. Right lower lobe consolidation. Correlate for pneumonia. Consider atypical pneumonia.
[2021-01-15 11:15] LABS: Anion Gap 0 mmol/L
[2021-01-15 11:22] LABS: C Reactive Protein 211.7 mg/L (<10.0)
[2021-01-15 11:27] LABS: Carbon Dioxide 47 mmol/L (22-30)
[2021-01-15 11:40] LABS: Amorphous Sediment,Urine Rare /hpf; Appearance,Urine Cloudy (Clear); Bilirubin,Urine Negative (Negative); Blood,Urine Small (Negative); Color,Urine Colorless; Glucose,Urine (UA) Negative (Negative); Ketones,Urine Negative (Negative); Leukocyte Esterase,Urine Negative (Negative); Mucus,Urine Rare /hpf; Nitrite,Urine Negative (Negative); PH, Urine 7.5 (5.0-8.0); Protein,Urine Negative (Negative); RBC,Urine 14 /hpf (0-5); Specific Gravity,Urine 1.004 (1.001-1.035); Squamous Epithelial Cell,Urine <1 /hpf (0-4); Urobilinogen,Urine <2.0 mg/dL (<2.0); WBC,Urine 3 /hpf (0-5)
--- NOTE | 2021-01-15 13:17 | CT ---
CT CHEST FOR PULMONARY EMBOLISM. EXAMINATION TYPE: CT angio chest DATE OF EXAM: 01/15/2021 INDICATION: COVID positive, Positive D-dimer CT DLP: 383.4 mGycm, Automated exposure control for dose reduction was used. CONTRAST: Patient injected with 100 ml mL of Isovue 370. COMPARISON: To 320 TECHNIQUE: CT of the chest is performed on a spiral scan at 2 mm thick sections. Study is performed with intravenous contrast timed for evaluation for pulmonary embolism. This will limit additional po rtions of the evaluation. 3-D MIP images reconstructed by the technologist are reviewed on the compu ter in the coronal and sagittal planes. FINDINGS: No persistent filling defects are evident to suggest an acute pulmonary embolism. No mediastinal or hilar adenopathy enlarged by CT criteria is evident. The ascending aorta diameter at the level of the main pulmonary artery is 3.3 cm. The main pulmonary artery diameter at the bifur cation is 3.1 cm. Consolidation is in the right middle lobe. Posterior dependent consolidations in the right lower lobe . There are scattered peripheral infiltrates present. Correlate for atypical pneumonia. Limited CT section through the upper abdomen are unremarkable. IMPRESSIONS: 1. No acute pulmonary embolism. 2. Scattered infiltrates with larger more focal consolidations in the right middle dependent lower lo be. Correlate for atypical pneumonia.
[2021-01-15] MEDS ORDERED: ALBUTEROL NEBULIZED 2.5 MG/3 ML INHALATION PRN (13:56)
[2021-01-15] MEDS ORDERED: PNEUMONIA PROTOCOL UTILIZED 1 EACH MISC PO PRN (13:56)
[2021-01-15] MEDS ORDERED: NA PHOS,M-B/NA PHOS,DI-BA 133 ML ENEMA RECTAL PRN (13:58)
[2021-01-15] MEDS ORDERED: ACETAMINOPHEN TAB 325 MG TAB PO PRN (13:58)
[2021-01-15] MEDS ORDERED: bisacodyL 10 MG SUPP RECTAL PRN (13:58)
[2021-01-15] MEDS ORDERED: MAGNESIUM HYDROXIDE 2,400 MG/10 ML CUP PO PRN (13:58)
[2021-01-15] MEDS ORDERED: guaiFENesin SYRUP 100MG/5ML 200 MG/10 ML CUP PO PRN (13:58)
[2021-01-15] MEDS ORDERED: dexAMETHasone 2 MG TAB PO STA (14:07)
[2021-01-15] MEDS: GABAPENTIN 100 MG CAP PO SCH ×2 (14:24→21:15)
[2021-01-15] MEDS: SODIUM CHLORIDE 0.9% 1,000 ML IV SCH (14:24)
[2021-01-15 16:59] LABS: Glucose,Whole Blood 122 mg/dL (75-99)
[2021-01-15] MEDS ORDERED: BUDESONIDE 1 MG/2 ML NEBU INHALATION SCH (17:00)
[2021-01-15] MEDS: INSULIN ASPART (NovoLOG) 100 UNIT/ML VIAL SQ SCH ×2 (17:18→21:04)
[2021-01-15] MEDS: MULTIVITAMINS, THERA 1 EACH TAB PO SCH (17:24)
[2021-01-15] MEDS: NYSTATIN 100,000 UNIT/ML SUSP 500,000 UNIT/5 ML CUP PO SCH (17:24)
[2021-01-15] MEDS: POTASSIUM CHLORIDE ER 10 MEQ TAB.ER.PRT PO SCH (17:24)
[2021-01-15] MEDS: MAGNESIUM OXIDE 400 MG TAB PO SCH (17:24)
[2021-01-15 17:33] LABS: Ferritin 90.8 ng/mL (10.0-291.0)
[2021-01-15] MEDS: VERAPAMIL 80 MG TAB PO SCH (18:00)
[2021-01-15] MEDS ORDERED: NON FORMULARY DRUG (Glucerna Shake 1 CAN Liquid) PO SCH (21:00)
[2021-01-15 21:04] LABS: Glucose,Whole Blood 164 mg/dL (75-99)
[2021-01-15] MEDS: MORPHINE SULFATE ER 15 MG TABLET PO SCH (21:14)
[2021-01-15] MEDS: MONTELUKAST 10 MG TAB PO SCH (21:14)
[2021-01-15] MEDS: MELATONIN 3 MG TABLET PO SCH (21:14)
[2021-01-15] MEDS: MINERAL OIL-WHITE PETROLATUM 120 GM JAR TOPICAL SCH (21:36)
[2021-01-15] MEDS: FLUTICASONE 220 MCG INHALER INHALATION SCH (23:53)
[2021-01-16] MEDS: SODIUM CHLORIDE 0.9% 1,000 ML IV SCH ×3 (03:19→20:50)
[2021-01-16] MEDS: PANTOPRAZOLE 40 MG TABLET PO SCH (05:31)
[2021-01-16] MEDS: GABAPENTIN 100 MG CAP PO SCH ×3 (05:31→20:52)
[2021-01-16 06:59] LABS: Glucose,Whole Blood 107 mg/dL (75-99)
[2021-01-16] MEDS ORDERED: CHOLECALCIFEROL 25 MCG (1000 IU) TABLET PO SCH (07:00)
[2021-01-16] MEDS: INSULIN ASPART (NovoLOG) 100 UNIT/ML VIAL SQ SCH ×4 (07:06→21:01)
[2021-01-16] MEDS: dexAMETHasone 2 MG TAB PO SCH (07:25)
[2021-01-16] MEDS: LORATADINE 10 MG TAB PO SCH (07:25)
[2021-01-16] MEDS: MORPHINE SULFATE ER 15 MG TABLET PO SCH ×2 (07:25→20:52)
[2021-01-16] MEDS: LIDOCAINE 5% PATCH TOPICAL SCH (07:26)
[2021-01-16] MEDS: ASCORBIC ACID 500 MG TAB PO SCH (07:26)
[2021-01-16] MEDS: CHOLECALCIFEROL 25 MCG (1000 IU) TABLET PO SCH (07:26)
[2021-01-16] MEDS: ZINC SULFATE 220 MG CAP PO SCH (07:26)
[2021-01-16] MEDS: VERAPAMIL 80 MG TAB PO SCH ×3 (07:27→16:52)
[2021-01-16] MEDS: NYSTATIN 100,000 UNIT/ML SUSP 500,000 UNIT/5 ML CUP PO SCH ×3 (07:27→16:52)
[2021-01-16] MEDS: DULoxetine HCL 30 MG CAPSULE.DR PO SCH (07:27)
[2021-01-16] MEDS: THEOPHYLLINE 24 HOUR 400 MG CAP.ER.24H PO SCH (07:27)
[2021-01-16] MEDS: FLUTICASONE 220 MCG INHALER INHALATION SCH ×3 (08:27→21:39)
[2021-01-16] MEDS: ALBUTEROL HFA INHALER INHALATION PRN ×4 (08:27→21:39)
[2021-01-16] MEDS: MINERAL OIL-WHITE PETROLATUM 120 GM JAR TOPICAL SCH ×2 (08:54→20:53)
[2021-01-16] MEDS: FLUTICASONE 50MCG/SPRAY NASAL 16GM EA NOSTRIL SCH (08:54)
[2021-01-16] MEDS ORDERED: FUROSEMIDE 40 MG TAB PO ONE (09:00)
--- NOTE | 2021-01-16 09:47 | XR ---
EXAMINATION TYPE: XR chest 1V DATE OF EXAM: 01/16/2021 COMPARISON: 01/15/2021 INDICATION: Pneumonia TECHNIQUE: Single frontal view of the chest is obtained. FINDINGS: The heart size is mildly prominent. The pulmonary vasculature is normal. There is consolidation in the right lower lobe which appears stable. IMPRESSION: 1. Right lower lobe infiltrate. Correlate for pneumonia. 2. Mild cardiomegaly. 3. Exam is stable from comparison.
[2021-01-16] MEDS ORDERED: REMDESIVIR 200 MG in SODIUM CHLORIDE 0.9% 250 ML IVPB ONE (11:30)
[2021-01-16 11:48] LABS: Glucose,Whole Blood 135 mg/dL (75-99)
[2021-01-16] MEDS: ALPRAZolam 0.25 MG TAB PO PRN (14:34)
--- NOTE | 2021-01-16 15:36 | P.CNPUL ---
History of Present Illness Consult date: 01/16/21 Requesting physician: Aj Owusu Reason for consult: dyspnea, cough, COPD, hypoxemia, pneumonia, pulmonary hypertension, abnormal CXR/CT Chief complaint: Shortness of breath, cough, chest congestion. History of present illness: 65-year-old female well-known to our service, with a history of severe COPD, who presents to the emergency department on January 15, at 10:30 AM, with complaints of shortness of breath. The patient was recently in the hospital between December 30 and January 05, with a COPD exacerbation. At that time, she tested negative for COVID 19. The patient states that since she got home, she has not been feeling well. The patient complains of worsening shortness of breath, chest tightness, cough, minimal phlegm production, and just overall weakness. Saturations are in the high 80s and low 90s on room air, and do increase into the low 90s, with O2. Currently she is on 5 L, and normally at home she is on 3 L. She has not been eating well she tells us, and just generally feeling weak and fatigued. She was brought in by EMS, and in route, did get some breathing treatments. She did test positive for COVID on this admission. White count 20.9, hemoglobin 9.9, hematocrit 31.3, and platelet count 231,000. PT INR and PTT were normal. D- dimer was 1.2. Sodium 133, potassium 4.2, chlorides 86, CO2 47, anion gap 0, BUN 14, and creatinine 0.55. The patient's LDH was 906, C-reactive protein 212, N-terminal proBNP 331, and pro-calcitonin 0.61. Chest x-ray showed some right lower lobe consolidation. CT angiogram was negative for pulmonary embolism, but did show some scattered infiltrates with large more focal consolidations in the right middle and lower lobe Review of Systems REVIEW OF SYSTEMS: CONSTITUTIONAL: Fatigue and weakness, decreased appetite. NEUROLOGIC: [ Negative.] HEENT: [ Negative.] CARDIAC: [Negative.] PULMONARY: Shortness of breath, cough, minimal phlegm production. GI: [Negative.] : [Negative.] RHEUMATOLOGIC: [ Negative.] IMMUNOLOGIC: [ Negative.] ENDOCRINE: [Negative. ] DERMATOLOGIC: [Negative.] Past Medical History Past Medical History: Cancer, COPD, Deep Vein Thrombosis (DVT), Hypertension, Pneumonia, Rheumatoid Arthritis (RA) Additional Past Medical History / Comment(s): hearing difficulty currently, colitis, osteopenia, hx cancer of appendix, uses oxygen 2L continuous. chronic back pain, restless leg, recent admission for exacerbation of COPD. 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 Colonoscopy 2017. pain procedure at [facility] with Dr Ty. TAD with unilateral oophorectomy 1983. Partial vulvectomy in 2000. Past Anesthesia/Blood Transfusion Reactions: No Reported Reaction Additional Past Anesthesia/Blood Transfusion Reaction / Comment(s): states is not supposed to have general anesthesia R/T awaiting lung transplant Past Psychological History: ADD/ADHD, Anxiety Additional Psychological History / Comment(s): . Smoking Status: Former smoker Past Alcohol Use History: None Reported Additional Past Alcohol Use History / Comment(s): Pt. states she quit smoking in 1999. smoked 1-1 1/2 PPD, started smoking age 13. Past Drug Use History: None Reported Additional Drug Use History / Comment(s): Quit using Marijuana 04/2016. - Past Family History Father Family Medical History: Cancer, COPD Additional Family Medical History / Comment(s): COLON cancer Mother Family Medical History: Cancer Additional Family Medical History / Comment(s): ESOPHAGUS cancer Sister(s) Family Medical History: Cancer Additional Family Medical History / Comment(s): CERVICAL cancer Medications and Allergies Home Medications Medication Instructions Recorded Confirmed Type rOPINIRole HCL [Requip] 0.5 mg PO HS@2100 03/24/20 01/15/21 History Cholecalciferol [Vitamin D3 (25 25 mcg PO DAILY@0700 04/08/20 01/15/21 History Mcg = 1000 Iu)] Ipratropium-Albuterol Nebulize 3 ml INHALATION RT-Q4H 04/18/20 01/15/21 History [Duoneb 0.5 mg-3 mg/3 ml Soln] Montelukast [Singulair] 10 mg PO HS #30 tab 04/22/20 01/15/21 Rx Magnesium Oxide [Mag-Ox] 400 mg PO DAILY@1700 09/15/20 01/15/21 History Loratadine [Claritin] 10 mg PO DAILY@0800 10/11/20 01/15/21 History Melatonin 3 mg PO HS 10/11/20 01/15/21 History Acetaminophen Tab [Tylenol] 650 mg PO Q4H PRN 12/30/20 01/15/21 History Fluticasone Nasal Warriormine [Flonase 1 spr EA NOSTRIL DAILY@0800 12/30/20 01/15/21 History Nasal Warriormine] Multivitamins, Thera [Multivitamin 1 tab PO DAILY@1700 12/30/20 01/15/21 History (formulary)] Pantoprazole Sodium [Protonix] 40 mg PO DAILY@0600 12/30/20 01/15/21 History Potassium Chloride 8 meq PO DAILY@1700 12/30/20 01/15/21 History Sodium Chloride [[place]ildale] 2 spray EA NOSTRIL Q2H PRN 12/30/20 01/15/21 History Theophylline 24 Hour [Sekou-24] 400 mg PO DAILY@0800 12/30/20 01/15/21 History ALPRAZolam [Xanax] 0.25 mg PO TID PRN #10 tab 01/05/21 01/15/21 Rx Amoxic-Pot Clav 875-125Mg 1 tab PO Q12HR 7 Days #14 tab 01/05/21 01/15/21 Rx [Augmentin 875-125] Ipratropium-Albuterol Nebulize 3 ml INHALATION RT-QID PRN ml 01/05/21 01/15/21 Rx [Duoneb 0.5 mg-3 mg/3 ml Soln] guaiFENesin SYRUP 100MG/5ML 200 mg PO Q6H PRN ml 01/05/21 01/15/21 Rx [Robitussin] Budesonide [Pulmicort] 1 mg INHALATION RT-BID@0800,1700 01/15/21 01/15/21 Histo ry DULoxetine HCL [Cymbalta] 30 mg PO DAILY@0800 01/15/21 01/15/21 History Eucerin Cream 1 applic TOPICAL BID 01/15/21 01/15/21 History Furosemide [Lasix] 20 mg PO DIRECTED 01/15/21 01/15/21 History Furosemide [Lasix] 40 mg PO DIRECTED 01/15/21 01/15/21 History Gabapentin [Neurontin] 100 mg PO TID@0600,1400,2200 01/15/21 01/15/21 History Glucerna Shake 120 ml PO BID@0800,2100 01/15/21 01/15/21 History INSULIN ASPART (NovoLOG) [NovoLOG See Protocol SQ ACHS 01/15/21 01/15/21 History (formulary)] Lidocaine 5% Patch [Lidoderm] 1 patch TOPICAL DAILY 01/15/21 01/15/21 History Magnesium Hydroxide [Milk of 7,200 mg PO Q48H PRN 01/15/21 01/15/21 History Magnesia Concentrate] Morphine Sulfate [Ms Contin] 15 mg PO BID@0800,2100 01/15/21 01/15/21 History Na Phos,M-B/Na Phos,Di-Ba [Fleet 133 ml RECTAL DAILY PRN 01/15/21 01/15/21 History Adult] Nystatin 100,000 Unit/ml Susp 500,000 unit PO TID@0800,1200,1700 01/15/21 01/15/21 History [Mycostatin Oral Susp] Verapamil [Isoptin] 80 mg PO TID@0800,1200,1700 01/15/21 01/15/21 History bisacodyL [Bisacodyl] 10 mg RECTAL DAILY PRN 01/15/21 01/15/21 History predniSONE 5 mg PO DIRECTED 01/15/21 01/15/21 History predniSONE See Taper PO DIRECTED 01/15/21 01/15/21 History Allergies Allergy/AdvReac Type Severity Reaction Status Date / Time infliximab [From Remicade] Allergy Dyspnea/HIV Verified 01/15/21 10:45 ES propoxyphene [From Darvon] Allergy Rash/Hives Verified 01/15/21 10:45 adhesive tape AdvReac "is hard Verified 01/15/21 10:45 on skin" Physical Exam Osteopathic Statement: *. No significant issues noted on an osteopathic structural exam other than those noted in the History and Physical/Consult. Vitals: Vital Signs Temp Pulse Resp BP Pulse Ox 01/16/21 13:59 98.3 F 88 18 167/66 91 L 01/16/21 09:05 97.5 F L 77 18 139/69 96 01/16/21 05:33 98.4 F 83 20 144/84 98 01/16/21 02:40 97.6 F 74 19 155/74 94 L 01/15/21 22:44 98.8 F 82 17 121/75 95 01/15/21 20:00 95 18 01/15/21 17:32 98.2 F 95 18 166/67 93 L Intake and Output 01/16/21 01/16/21 01/16/21 06:59 14:59 22:59 Intake Total 1200 Balance 1200 Intake: Intake, IV Titration 1200 Amount Sodium Chloride 0.9% 1, 1200 000 ml @ 100 mls/hr IV . Q10H [facility] Rx#:[id number] Other: Voiding Method Indwelling Catheter Results - Laboratory Findings Comments: Mild tachypnea, currently on 5 L nasal cannula, with saturations of 91%. No audible wheezing, or use of accessory muscles. HEENT examination is grossly unremarkable. Mucous membranes are moist. No oral lesions. Neck supple. Full range of motion. No adenopathy thyromegaly or neck vein distention. Cardiovascular examination reveals regular rhythm rate. S1-S2 normal. No S3 or S4. No discernible murmur noted. Heart sounds are distant. Heart rate 88 bpm. Lungs reveal bilateral coarse rhonchi. Bibasilar crackles appreciated. Mild expiratory wheezes are noted. Breath sounds are equal bilaterally but severely diminished throughout. Abdomen soft bowel sounds are heard. No masses or tenderness. Extremities are intact. No cyanosis clubbing or edema. Skin is without rash or lesion. Neurologic examination is brief but nonfocal. CBC and BMP: 01/15/21 10:47 01/15/21 10:47 PT/INR, D-dimer PT 9.7 sec (9.0-12.0) 01/15/21 10:47 INR 0.9 (<1.2) 01/15/21 10:47 D-Dimer 1.12 mg/L FEU (<0.60) H 01/15/21 10:47 Abnormal lab findings: Abnormal Labs 01/15/21 01/15/21 01/15/21 10:47 10:47 10:47 WBC 20.9 H RBC 3.54 L Hgb 9.9 L Hct 31.3 L RDW 18.3 H Neutrophils # 18.7 H D-Dimer 1.12 H Sodium 133 L Chloride 86 L Carbon Dioxide 47 H* Glucose 118 H POC Glucose (mg/dL) Lactate Dehydrogenase 906 H Creatine Kinase <20 L C-Reactive Protein 211.7 H Total Protein 5.3 L Albumin 3.1 L Procalcitonin Urine Appearance Urine Blood Urine RBC Amorphous Sediment Urine Mucus 01/15/21 01/15/21 01/15/21 10:47 11:20 16:56 WBC RBC Hgb Hct RDW Neutrophils # D-Dimer Sodium Chloride Carbon Dioxide Glucose POC Glucose (mg/dL) 122 H Lactate Dehydrogenase Creatine Kinase C-Reactive Protein Total Protein Albumin Procalcitonin 0.61 H Urine Appearance Cloudy H Urine Blood Small H Urine RBC 14 H Amorphous Sediment Rare H Urine Mucus Rare H 01/15/21 01/16/21 01/16/21 21:02 06:54 11:45 WBC RBC Hgb Hct RDW Neutrophils # D-Dimer Sodium Chloride Carbon Dioxide Glucose POC Glucose (mg/dL) 164 H 107 H 135 H Lactate Dehydrogenase Creatine Kinase C-Reactive Protein Total Protein Albumin Procalcitonin Urine Appearance Urine Blood Urine RBC Amorphous Sediment Urine Mucus - Diagnostic Findings Chest x-ray: image reviewed CT scan - chest: image reviewed Assessment and Plan Assessment: Shortness of breath, multifactorial, in part related to her severe COPD, but also, secondary to COVID 19 pneumonia/pneumonitis. Recent hospitalization between December 30 and January 05, for a COPD exacerbation. Chronic hypoxemic respiratory failure, currently on home O2 at 3 L. History of deep venous thrombosis. History of hypertension. History of rheumatoid arthritis. History of colitis. Osteopenia/osteoporosis. Chronic back pain. History of restless leg syndrome. History of vulvar cancer. Previous history of bowel resection. Multiple other medical problems and comorbidities. Plan: Plan dated 01/16/2021. The patient's started on Decadron, vitamin C, vitamin D3, and zinc. In addition, she is placed back on her usual breathing medications. The patient is also prescribed REM, 200 mg on day 1, 100 mg on day 2,3,4 and 5. Also, the patient is going to get Lovenox, 40 mg subcutaneously daily. The patient's labs, chest x-ray, and medications are all reviewed. Her overall prognosis remains guarded. The patient was recently inpatient, between December 30 and January 05, for a COPD exacerbation. At that time, her COVID with test was negative. She states that she never really felt that well when she was discharged, and came back in for worsening shortness of breath. We will continue to follow. We will make recommendations were appropriate. Time with Patient: Greater than 30
[2021-01-16 16:43] LABS: Glucose,Whole Blood 128 mg/dL (75-99)
[2021-01-16] MEDS: MAGNESIUM OXIDE 400 MG TAB PO SCH (16:52)
[2021-01-16] MEDS: MULTIVITAMINS, THERA 1 EACH TAB PO SCH (16:52)
[2021-01-16] MEDS: ENOXAPARIN 40 MG/0.4 ML SYRINGE SQ SCH (16:52)
[2021-01-16] MEDS: POTASSIUM CHLORIDE ER 10 MEQ TAB.ER.PRT PO SCH (16:52)
[2021-01-16 17:37] LABS: African American GFR (CKD) >90 (>60 ml/min/1.73 sqM); Blood Urea Nitrogen 21 mg/dL (7-17); Calcium 8.5 mg/dL (8.4-10.2); Chloride 91 mmol/L (98-107); Glucose 126 mg/dL (74-99); LDH 691 U/L (313-618); Magnesium 1.8 mg/dL (1.6-2.3); Non-African American GFR(CKD) >90 (>60 ml/min/1.73 sqM); Potassium 3.9 mmol/L (3.5-5.1); Sodium 136 mmol/L (137-145)
[2021-01-16 17:41] LABS: Anion Gap 3 mmol/L
[2021-01-16 17:42] LABS: Anisocytosis Slight; Basophils % (A) 0 %; Eosinophils % (A) 0 %; HGB 9.1 gm/dL (11.4-16.0); Hypochromasia Marked; Lymphocytes # (A) 0.4 k/uL (1.0-4.8); Lymphocytes % (A) 3 %; MCH 26.9 pg (25.0-35.0); MCHC 30.5 g/dL (31.0-37.0); MCV 88.2 fL (80.0-100.0); Mean Platelet Volume 8.2; Monocytes # (A) 0.7 k/uL (0-1.0); Monocytes % (A) 6 %; Neutrophils # (A) 10.4 k/uL (1.3-7.7); Neutrophils % (A) 90 %; Platelet Count 215 k/uL (150-450); RDW 17.8 % (11.5-15.5); WBC 11.6 k/uL (3.8-10.6)
[2021-01-16 18:16] LABS: Carbon Dioxide 42 mmol/L (22-30)
--- NOTE | 2021-01-16 18:59 | P.HPIM ---
<Kapil Gonzalez - Last Filed: 01/16/21 18:28> History of Present Illness H&P Date: 01/16/21 Chief Complaint: increased shortness of breath [facility] physicians notified of this admission on 01/16/21 at at 1:28 PM. History of presenting illness: Patient is a 65-year-old female with a past medical history of advanced end- stage COPD home oxygen dependent on 3 L at all times, chronic hypoxic respiratory failure, history of Klebsiella pneumonia infection, and rheumatoid arthritis whom presented to [facility] emergency department with a chief complaint of shortness of breath. Patient had recent admission 12/30/20 through 01/05/21 for treatment of acute on chronic hypoxic respiratory failure with Klebsiella pneumonia and sputum culture positive for Erica albicans. Patient was discharged to [facility] for continued PT/OT therapy and was discharged home with prescriptions for continued antibiotics: Augmentin as well as a prednisone taper. She reports she took her medications as prescribed, but states since discharge she has not felt any better and states over the past couple days she has had excessive fatigue where all she has done his sleep, felt extremely weak, decreased appetite, and has noticed an increase in her shortness of breath. Patient denies any increases in or changes in her chronic cough, stating she has a once in a while productive cough of thick yellow phlegm. Reports that secondary to these complaints, the provider at [facility] ordered a Covid test on patient in which patient tested positive and was sent to the hospital for evaluation. In the emergency department, patient was found to have significant leukocytosis with a WBC count of 20.9 with a left shift with neutrophils of 18.7, hemoglobin of 9.9, elevated d-dimer 1.12, hyponatremia with sodium of 133, hypochloremia with chloride of 86, a carbon dioxide of 47, elevated LDH of 906, elevated CRP of 211.7, pro-calcitonin of 0.61, and troponin 0.019. Urinalysis completed negative for infection. Blood cultures and sputum cultures sent to lab for analysis and pending results. Chest x-ray revealing right lower lobe consolidation. CTA negative for acute PE revealing scattered infiltrates with larger more focal consolidations in the right middle dependent lower lobe. Upon assessment patient resting comfortably on 5 L O2 via high flow nasal cannula. Respirations slightly labored the patient able to speak in 4-5 words sentences prior to stopping to take a breath. She denies having any fevers, chills, diaphoresis, headache, lightheadedness, dizziness, chest pain or palpitations, abdominal pain, nausea, vomiting, diarrhea, changes in her difficulties with urinary function, or experiencing any pain/t ingling/numbness/weakness in extremities. Review of systems: Pertinent positives and negatives as discussed in HPI, a complete review of systems was performed and all other systems are negative. Physical exam: General: non toxic, no distress, appears at stated age Derm: warm, dry Head: atraumatic, normocephalic, symmetric Eyes: EOMI, no lid lag, anicteric sclera Mouth: no lip lesion, mucus membranes moist Cardiovascular: S1-S2 normal with regular rate and rhythm. No murmurs, rubs, or gallops noted. 2+ pitting bilateral lower extremity edema. Lungs: Respirations slightly labored on 5 L O2 via nasal cannula with SpO2 91%. Slight conversational dyspnea , Patient able to speak in 4-5 word sentences. Lungs with diffuse rhonchi and expiratory wheezes bilaterally. Abdominal: Soft, nontender to palpation, no guarding, no appreciable organomegaly Ext: No gross muscle atrophy, no contractures. 2+ pitting bilateral lower extremity edema. Neuro: CN II-XI grossly intact, no focal neuro deficits Psych: Alert, oriented, appropriate affect Assessment and Plan of Care: Acute on chronic respiratory failure with hypoxia secondary to Covid 19 pneumonitis in addition to end-stage COPD -Covid test reported as positive on 01/15/21 -Chest x-ray revealing right lower lobe consolidation. -CTA negative for acute PE revealing scattered infiltrates with larger more focal consolidations in the right middle dependent lower lobe -Contact plus droplet precautions. -Consult pulmonology, appreciate further recommendations -Remdesivir -Decadron 6 mg daily, today is day 2 of steroids. -Vitamin C, vitamin D, zinc, melatonin, and guaifenesin. -Continue oxygen, titrated as needed to maintain SpO2 equal to or greater than 92%. -MDIs as needed for increased shortness of breath and/or wheezing. -Theophylline -Sputum cultures pending, continue Rocephin pending results. Chronic cor pulmonale -Continue Lasix 20 mg daily. -Heart healthy diet. Obesity with BMI of 35 -Encourage follow-up with PCP for outpatient counseling on diet and nutrition was structured weight loss. 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 The patient is admitted with an anticipated greater than 2 midnight stay for evaluation of acute respiratory failure with hypoxia. Surrogate decision-maker: Patient and in the event patient is unable to make decisions these can be made by her siblings Juventino or Candace Mayfield. CODE STATUS: Full code DVT prophylaxis: Lovenox Discussed with: Patient Anticipated discharge date: Clinical course to be determined Anticipated discharge place Back to SNF: [facility] A total of 45 minutes was spent on the care of this complex patient more than 50% of the time was spent in counseling and care coordination. Past Medical History Past Medical History: Cancer, COPD, Deep Vein Thrombosis (DVT), Hypertension, Pneumonia, Rheumatoid Arthritis (RA) Additional Past Medical History / Comment(s): hearing difficulty currently, colitis, osteopenia, hx cancer of appendix, uses oxygen 2L continuous. chronic back pain, restless leg, recent admission for exacerbation of COPD. 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 Colonoscopy 2017. pain procedure at [facility] [place] with Dr Ty. TAD with unilateral oophorectomy 1983. Partial vulvectomy in 2000. Past Anesthesia/Blood Transfusion Reactions: No Reported Reaction Additional Past Anesthesia/Blood Transfusion Reaction / Comment(s): states is not supposed to have general anesthesia R/T awaiting lung transplant Past Psychological History: ADD/ADHD, Anxiety Additional Psychological History / Comment(s): . Smoking Status: Former smoker Past Alcohol Use History: None Reported Additional Past Alcohol Use History / Comment(s): Pt. states she quit smoking in 1999. smoked 1-1 1/2 PPD, started smoking age 13. Past Drug Use History: None Reported Additional Drug Use History / Comment(s): Quit using Marijuana 04/2016. - Past Family History Father Family Medical History: Cancer, COPD Additional Family Medical History / Comment(s): COLON cancer Mother Family Medical History: Cancer Additional Family Medical History / Comment(s): ESOPHAGUS cancer Sister(s) Family Medical History: Cancer Additional Family Medical History / Comment(s): CERVICAL cancer Medications and Allergies Home Medications Medication Instructions Recorded Confirmed Type rOPINIRole HCL [Requip] 0.5 mg PO HS@2100 03/24/20 01/15/21 History Cholecalciferol [Vitamin D3 (25 25 mcg PO DAILY@0700 04/08/20 01/15/21 History Mcg = 1000 Iu)] Ipratropium-Albuterol Nebulize 3 ml INHALATION RT-Q4H 04/18/20 01/15/21 History [Duoneb 0.5 mg-3 mg/3 ml Soln] Montelukast [Singulair] 10 mg PO HS #30 tab 04/22/20 01/15/21 Rx Magnesium Oxide [Mag-Ox] 400 mg PO DAILY@1700 09/15/20 01/15/21 History Loratadine [Claritin] 10 mg PO DAILY@0800 10/11/20 01/15/21 History Melatonin 3 mg PO HS 10/11/20 01/15/21 History Acetaminophen Tab [Tylenol] 650 mg PO Q4H PRN 12/30/20 01/15/21 History Fluticasone Nasal [place] [Flonase 1 spr EA NOSTRIL DAILY@0812/30/20 01/15/21 History Nasal [place]] Multivitamins, Thera [Multivitamin 1 tab PO DAILY@0 12/30/20 01/15/21 History (formulary)] Pantoprazole Sodium [Protonix] 40 mg PO DAILY@0600 12/30/20 01/15/21 History Potassium Chloride 8 meq PO DAILY@169912/30/20 01/15/21 History Sodium Chloride [[place]] 2 spray EA NOSTRIL Q2H PRN 12/30/20 01/15/21 History Theophylline 24 Hour [[place]-24] 400 mg PO DAILY@0800 12/30/20 01/15/21 History ALPRAZolam [Xanax] 0.25 mg PO TID PRN #10 tab 01/05/21 01/15/21 Rx Amoxic-Pot Clav 875-125Mg 1 tab PO Q12HR 7 Days #14 tab 01/05/21 01/15/21 Rx [Augmentin 875-125] Ipratropium-Albuterol Nebulize 3 ml INHALATION RT-QID PRN ml 01/05/21 01/15/21 Rx [Duoneb 0.5 mg-3 mg/3 ml Soln] guaiFENesin SYRUP 100MG/5ML 200 mg PO Q6H PRN ml 01/05/21 01/15/21 Rx [Robitussin] Budesonide [Pulmicort] 1 mg INHALATION RT-BID@0800,1700 01/15/21 01/15/21 History DULoxetine HCL [Cymbalta] 30 mg PO DAILY@0800 01/15/21 01/15/21 History Eucerin Cream 1 applic TOPICAL BID 01/15/21 01/15/21 History Furosemide [Lasix] 20 mg PO DIRECTED 01/15/21 01/15/21 History Furosemide [Lasix] 40 mg PO DIRECTED 01/15/21 01/15/21 History Gabapentin [Neurontin] 100 mg PO TID@0600,1400,2200 01/15/21 01/15/21 History Glucerna Shake 120 ml PO BID@0800,2100 01/15/21 01/15/21 History INSULIN ASPART (NovoLOG) [NovoLOG See Protocol SQ ACHS 01/15/21 01/15/21 History (formulary)] Lidocaine 5% Patch [Lidoderm] 1 patch TOPICAL DAILY 01/15/21 01/15/21 History Magnesium Hydroxide [Milk of 7,200 mg PO Q48H PRN 01/15/21 01/15/21 History Magnesia Concentrate] Morphine Sulfate [Ms Contin] 15 mg PO BID@0800,2100 01/15/21 01/15/21 History Na Phos,M-B/Na Phos,Di-Ba [Fleet 133 ml RECTAL DAILY PRN 01/15/21 01/15/21 Hist ory Adult] Nystatin 100,000 Unit/ml Susp 500,000 unit PO TID@0800,1200,1700 01/15/21 01/15/21 History [Mycostatin Oral Susp] Verapamil [Isoptin] 80 mg PO TID@0800,1200,1700 01/15/21 01/15/21 History bisacodyL [Bisacodyl] 10 mg RECTAL DAILY PRN 01/15/21 01/15/21 History predniSONE 5 mg PO DIRECTED 01/15/21 01/15/21 History predniSONE See Taper PO DIRECTED 01/15/21 01/15/21 History Allergies Allergy/AdvReac Type Severity Reaction Status Date / Time infliximab [From Remicade] Allergy Dyspnea/HIV Verified 01/15/21 10:45 ES propoxyphene [From Darvon] Allergy Rash/Hives Verified 01/15/21 10:45 adhesive tape AdvReac "is hard Verified 01/15/21 10:45 on skin" Physical Exam Vitals: Vital Signs Temp Pulse Resp BP Pulse Ox 01/16/21 09:05 97.5 F L 77 18 139/69 96 01/16/21 05:33 98.4 F 83 20 144/84 98 01/16/21 02:40 97.6 F 74 19 155/74 94 L 01/15/21 22:44 98.8 F 82 17 121/75 95 01/15/21 20:00 95 18 01/15/21 17:32 98.2 F 95 18 166/67 93 L Intake and Output 01/15/21 01/16/21 01/16/21 22:59 06:59 14:59 Intake Total 1200 Output Total 1000 Balance -1000 1200 Intake: Intake, IV Titration 1200 Amount Sodium Chloride 0.9% 1, 1200 000 ml @ 100 mls/hr IV . Q10H [facility] Rx#:[id number] Output: Urine 1000 Other: Voiding Method Indwelling Catheter Indwelling Catheter # Bowel Movements 1 Results CBC & Chem 7: 01/16/21 16:51 01/16/21 16:51 Labs: Abnormal Lab Results - Last 24 Hours (Table) 01/15/21 01/15/21 01/15/21 Range/Units 10:47 16:56 21:02 POC Glucose (mg/dL) 122 H 164 H (75-99) mg/dL Procalcitonin 0.61 H (0.02-0.09) ng/mL 01/16/21 01/16/21 Range/Units 06:54 11:45 POC Glucose (mg/dL) 107 H 135 H (75-99) mg/dL Procalcitonin (0.02-0.09) ng/mL Microbiology - Last 24 Hours (Table) 01/15/21 12:11 Blood Culture - Preliminary Blood No Growth after 24 hours Thrombosis Risk Factor Assmnt - Choose All That Apply Each Factor Represents 1 point: Abnormal pulmonary function (COPD), Obesity (BMI >25), Serious lung disease incl. pneumonia (< 1month), Swollen legs (current) Other Risk Factors: Yes Each Risk Factor Represents 2 Points: Age 61-74 years Other congenital or acquired thrombophilia - If yes, enter type in comment: No Thrombosis Risk Factor Assessment Total Risk Factor Score: 6 Thrombosis Risk Factor Assessment Level: High Risk <Linda Elise - Last Filed: 01/16/21 20:17> Physical Exam Osteopathic Statement: *. No significant issues noted on an osteopathic structural exam other than those noted in the History and Physical/Consult. Vitals: Vital Signs Temp Pulse Resp BP Pulse Ox 01/16/21 19:30 18 01/16/21 17:49 98 F 88 18 154/67 93 L 01/16/21 13:59 98.3 F 88 18 167/66 91 L 01/16/21 09:05 97.5 F L 77 18 139/69 96 01/16/21 05:33 98.4 F 83 20 144/84 98 01/16/21 02:40 97.6 F 74 19 155/74 94 L 01/15/21 22:44 98.8 F 82 17 121/75 95 Intake and Output 01/16/21 01/16/21 01/16/21 06:59 14:59 22:59 Intake Total 1200 Output Total 1000 Balance 1200 -1000 Intake: Intake, IV Titration 1200 Amount Sodium Chloride 0.9% 1, 1200 000 ml @ 100 mls/hr IV . Q10H [facility] Rx#:[id number] Output: Urine 1000 Other: Voiding Method Indwelling Catheter Indwelling Catheter # Bowel Movements 1 Results CBC & Chem 7: 01/16/21 16:51 01/16/21 16:51 Labs: Abnormal Lab Results - Last 24 Hours (Table) 01/15/21 01/15/21 01/16/21 Range/Units 10:47 21:02 06:54 WBC (3.8-10.6) k/uL RBC (3.80-5.40) m/uL Hgb (11.4-16.0) gm/dL Hct (34.0-46.0) % MCHC (31.0-37.0) g/dL RDW (11.5-15.5) % Neutrophils # (1.3-7.7) k/uL Lymphocytes # (1.0-4.8) k/uL D-Dimer (<0.60) mg/L FEU Sodium (137-145) mmol/L Chloride (98-107) mmol/L Carbon Dioxide (22-30) mmol/L BUN (7-17) mg/dL Glucose (74-99) mg/dL POC Glucose (mg/dL) 164 H 107 H (75-99) mg/dL Lactate Dehydrogenase (313-618) U/L C-Reactive Protein (<10.0) mg/L Procalcitonin 0.61 H (0.02-0.09) ng/mL 01/16/21 01/16/21 01/16/21 Range/Units 11:45 16:38 16:51 WBC 11.6 H (3.8-10.6) k/uL RBC 3.40 L (3.80-5.40) m/uL Hgb 9.1 L (11.4-16.0) gm/dL Hct 30.0 L (34.0-46.0) % MCHC 30.5 L (31.0-37.0) g/dL RDW 17.8 H (11.5-15.5) % Neutrophils # 10.4 H (1.3-7.7) k/uL Lymphocytes # 0.4 L (1.0-4.8) k/uL D-Dimer (<0.60) mg/L FEU Sodium (137-145) mmol/L Chloride (98-107) mmol/L Carbon Dioxide (22-30) mmol/L BUN (7-17) mg/dL Glucose (74-99) mg/dL POC Glucose (mg/dL) 135 H 128 H (75-99) mg/dL Lactate Dehydrogenase (313-618) U/L C-Reactive Protein (<10.0) mg/L Procalcitonin (0.02-0.09) ng/mL 01/16/21 01/16/21 Range/Units 16:51 16:51 WBC (3.8-10.6) k/uL RBC (3.80-5.40) m/uL Hgb (11.4-16.0) gm/dL Hct (34.0-46.0) % MCHC (31.0-37.0) g/dL RDW (11.5-15.5) % Neutrophils # (1.3-7.7) k/uL Lymphocytes # (1.0-4.8) k/uL D-Dimer 1.28 H (<0.60) mg/L FEU Sodium 136 L (137-145) mmol/L Chloride 91 L (98-107) mmol/L Carbon Dioxide 42 H* (22-30) mmol/L BUN 21 H (7-17) mg/dL Glucose 126 H (74-99) mg/dL POC Glucose (mg/dL) (75-99) mg/dL Lactate Dehydrogenase 691 H (313-618) U/L C-Reactive Protein 320.0 H (<10.0) mg/L Procalcitonin (0.02-0.09) ng/mL Microbiology - Last 24 Hours (Table) 01/16/21 09:37 Sputum Culture - Preliminary Sputum 01/15/21 12:11 Blood Culture - Preliminary Blood No Growth after 24 hours Assessment and Plan Assessment: Patient seen and examined independently. Patient was also seen by Kapil Gonzalez NP and case was discussed. I am in agreement with subjective, physical exam, assessment and plan as written above and amended below. Reports that she's feeling much better than yesterday. Dyspnea is near baseline. General: non toxic, no distress, appears at stated age Derm: warm, dry Head: atraumatic, normocephalic, symmetric Eyes: EOMI, no lid lag, anicteric sclera Mouth: no lip lesion, mucus membranes dry Cardiovascular: S1S2 reg, no murmur, positive posterior tibial pulse bilateral, Lungs: Diffuse wheezing bilaterally, 3 word conversational dyspnea, no accessory muscle use Abdominal: soft, nontender to palpation, no guarding, no appreciable organomegaly Hypertension, controlled -Continue with verapamil -Follow blood pressures Chronic pain -Resume home MS Contin -Lidoderm -Gabapentin
[2021-01-16] MEDS: MELATONIN 3 MG TABLET PO SCH (20:52)
[2021-01-16] MEDS: MONTELUKAST 10 MG TAB PO SCH (20:52)
[2021-01-16 20:58] LABS: Glucose,Whole Blood 177 mg/dL (75-99)
[2021-01-17] MEDS: ALBUTEROL HFA INHALER INHALATION PRN ×7 (00:26→23:58)
[2021-01-17] MEDS: SODIUM CHLORIDE 0.9% 1,000 ML IV SCH ×2 (05:28→17:18)
[2021-01-17] MEDS: GABAPENTIN 100 MG CAP PO SCH ×3 (05:28→21:03)
[2021-01-17] MEDS: PANTOPRAZOLE 40 MG TABLET PO SCH (05:28)
[2021-01-17 06:59] LABS: Glucose,Whole Blood 119 mg/dL (75-99)
[2021-01-17] MEDS: dexAMETHasone 2 MG TAB PO SCH (08:21)
[2021-01-17] MEDS: LORATADINE 10 MG TAB PO SCH (08:21)
[2021-01-17] MEDS: FUROSEMIDE 20 MG TAB PO SCH (08:21)
[2021-01-17] MEDS: ASCORBIC ACID 500 MG TAB PO SCH (08:21)
[2021-01-17] MEDS: CHOLECALCIFEROL 25 MCG (1000 IU) TABLET PO SCH (08:22)
[2021-01-17] MEDS: ENOXAPARIN 40 MG/0.4 ML SYRINGE SQ SCH (08:22)
[2021-01-17] MEDS: ZINC SULFATE 220 MG CAP PO SCH (08:22)
[2021-01-17] MEDS: FLUTICASONE 220 MCG INHALER INHALATION SCH ×2 (08:23→20:22)
[2021-01-17] MEDS: LIDOCAINE 5% PATCH TOPICAL SCH (08:24)
[2021-01-17] MEDS: INSULIN ASPART (NovoLOG) 100 UNIT/ML VIAL SQ SCH ×4 (08:25→21:04)
[2021-01-17] MEDS: MORPHINE SULFATE ER 15 MG TABLET PO SCH ×2 (08:25→21:01)
[2021-01-17] MEDS: DULoxetine HCL 30 MG CAPSULE.DR PO SCH (08:25)
[2021-01-17] MEDS: THEOPHYLLINE 24 HOUR 400 MG CAP.ER.24H PO SCH (08:26)
[2021-01-17] MEDS: NYSTATIN 100,000 UNIT/ML SUSP 500,000 UNIT/5 ML CUP PO SCH ×3 (08:26→17:18)
[2021-01-17] MEDS: MINERAL OIL-WHITE PETROLATUM 120 GM JAR TOPICAL SCH ×2 (08:27→21:03)
[2021-01-17] MEDS: VERAPAMIL 80 MG TAB PO SCH ×3 (08:27→17:19)
[2021-01-17] MEDS: FLUTICASONE 50MCG/SPRAY NASAL 16GM EA NOSTRIL SCH (08:27)
--- NOTE | 2021-01-17 10:38 | P.PN ---
<Kapil Gonzalez - Last Filed: 01/17/21 10:24> Subjective Progress Note Date: 01/17/21 Principal diagnosis: Acute on chronic respiratory failure with hypoxia resulting from Covid 19 pneumonitis on acute exacerbation of end-stage COPD Hospital course: Patient is a 65-year-old female with a past medical history of advanced end- stage COPD home oxygen dependent on 3 L at all times, chronic hypoxic respiratory failure, history of Klebsiella pneumonia infection, and rheumatoid arthritis whom presented to [facility] emergency department with a chief complaint of shortness of breath. Patient had recent admission 12/30/20 through 01/05/21 for treatment of acute on chronic hypoxic respiratory failure with Klebsiella pneumonia and sputum culture positive for Erica albicans. Patient was discharged to [facility] for continued PT/OT therapy and was discharged home with prescriptions for continued antibiotics: Augmentin as well as a prednisone taper. She reports she took her medications as prescribed, but states since discharge she has not felt any better and states over the past couple days she has had excessive fatigue where all she has done his sleep, felt extremely weak, decreased appetite, and has noticed an increase in her shortness of breath. Patient denies any increases in or changes in her chronic cough, stating she has a once in a while productive cough of thick yellow phlegm. Reports that secondary to these complaints, the provider at [facility] ordered a Covid test on patient in which patient tested positive and was sent to the hospital for evaluation. In the emergency department, patient was found to have significant leukocytosis with a WBC count of 20.9 with a left shift with neutrophils of 18.7, hemoglobin of 9.9, elevated d-dimer 1.12, hyponatremia with sodium of 133, hypochloremia with chloride of 86, a carbon dioxide of 47, elevated LDH of 906, elevated CRP of 211.7, pro-calcitonin of 0.61, and troponin 0.019. Urinalysis completed negative for infection. Blood cultures and sputum cultures sent to lab for analysis and pending results. Chest x-ray revealing right lower lobe consolidation. CTA negative for acute PE revealing scattered infiltrates with larger more focal consolidations in the right middle dependent lower lobe. Physical exam: 01/17/21: Patient seen and fully evaluated at the bedside. She was sitting up in bed and appeared to be comfortable at that time. She remains on on 5 L O2 via high flow nasal cannula. Conversational dyspnea present, patient able to speak in approximately 4-5 word sentences prior to stopping to take a breath. She reports feeling anxious and very concerned over having Covid 19 infection with her history. Patient continues to deny having any fevers, chills, diaphoresis, headache, lightheadedness, dizziness, chest pain or palpitations, abdominal pain, nausea, vomiting, diarrhea, changes in her difficulties with urinary function, or experiencing any pain/tingling/numbness/weakness in extremities. General: non toxic, no distress, appears at stated age Derm: warm, dry Head: atraumatic, normocephalic, symmetric Eyes: EOMI, no lid lag, anicteric sclera Mouth: no lip lesion, mucus membranes moist Cardiovascular: S1-S2 normal with regular rate and rhythm. No murmurs, rubs, or gallops noted. 2+ pitting bilateral lower extremity edema. Lungs: Respirations slightly labored with conversational dyspnea on 5 L O2 via nasal cannula with SpO2 89-90% at time of assessment. Lungs with diffuse rhonchi and expiratory wheezes bilaterally. Coarse raspy nonproductive cough present. Abdominal: Soft, nontender to palpation, no guarding, no appreciable organomegaly Ext: No gross muscle atrophy, no contractures. 2+ pitting bilateral lower extremity edema. Neuro: CN II-XI grossly intact, no focal neuro deficits Psych: Alert, oriented, appropriate affect Assessment and Plan of Care: Acute on chronic respiratory failure with hypoxia secondary to Covid 19 pneumonitis in addition to end-stage COPD -Covid test reported as positive on 01/15/21 -Chest x-ray revealing right lower lobe consolidation. -CTA negative for acute PE revealing scattered infiltrates with larger more focal consolidations in the right middle dependent lower lobe -Contact plus droplet precautions. -Pulmonology following, appreciate further recommendations -Remdesivir being administered, today is day 2 of 4 doses -Decadron 6 mg daily, today is day 3 of steroids. -Vitamin C, vitamin D, zinc, melatonin, and guaifenesin. -Continue oxygen, titrated as needed to maintain SpO2 equal to or greater than 92%. -MDIs as needed for increased shortness of breath and/or wheezing. -Theophylline -Sputum cultures pending, continue Rocephin pending results. Chronic cor pulmonale -Continue Lasix 20 mg daily. -Heart healthy diet. Chronic pain -Continue daily medication regimen with MS Contin, lidocaine patches, and Neurontin. Obesity with BMI of 35 -Encourage follow-up with PCP for outpatient counseling on diet and nutrition was structured weight loss. 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 CODE STATUS: Full code DVT prophylaxis: Lovenox Discussed with: Patient Anticipated discharge date: Clinical course to be determined Anticipated discharge place Back to [facility] A total of 45 minutes was spent on the care of this complex patient more than 50% of the time was spent in counseling and care coordination. Objective - Vital Signs Vital signs: Vital Signs Temp 97.5 F L 01/17/21 05:15 Pulse 80 01/17/21 08:34 Resp 22 01/17/21 08:34 BP 169/62 01/17/21 05:15 Pulse Ox 88 L 01/17/21 08:24 Intake & Output 01/16/21 01/17/21 01/17/21 18:59 06:59 18:59 Output Total 1000 600 Balance -1000 -600 Output: Urine 1000 600 Other: Voiding Method Indwelling Catheter Indwelling Catheter Indwelling Catheter # Bowel Movements 1 - Labs CBC & Chem 7: 01/16/21 16:51 01/16/21 16:51 Labs: Abnormal Lab Results - Last 24 Hours (Table) 01/16/21 01/16/21 01/16/21 Range/Units 11:45 16:38 16:51 WBC 11.6 H (3.8-10.6) k/uL RBC 3.40 L (3.80-5.40) m/uL Hgb 9.1 L (11.4-16.0) gm/dL Hct 30.0 L (34.0-46.0) % MCHC 30.5 L (31.0-37.0) g/dL RDW 17.8 H (11.5-15.5) % Neutrophils # 10.4 H (1.3-7.7) k/uL Lymphocytes # 0.4 L (1.0-4.8) k/uL D-Dimer (<0.60) mg/L FEU Sodium (137-145) mmol/L Chloride (98-107) mmol/L Carbon Dioxide (22-30) mmol/L BUN (7-17) mg/dL Glucose (74-99) mg/dL POC Glucose (mg/dL) 135 H 128 H (75-99) mg/dL Lactate Dehydrogenase (313-618) U/L C-Reactive Protein (<10.0) mg/L 01/16/21 01/16/21 01/16/21 Range/Units 16:51 16:51 20:56 WBC (3.8-10.6) k/uL RBC (3.80-5.40) m/uL Hgb (11.4-16.0) gm/dL Hct (34.0-46.0) % MCHC (31.0-37.0) g/dL RDW (11.5-15.5) % Neutrophils # (1.3-7.7) k/uL Lymphocytes # (1.0-4.8) k/uL D-Dimer 1.28 H (<0.60) mg/L FEU Sodium 136 L (137-145) mmol/L Chloride 91 L (98-107) mmol/L Carbon Dioxide 42 H* (22-30) mmol/L BUN 21 H (7-17) mg/dL Glucose 126 H (74-99) mg/dL POC Glucose (mg/dL) 177 H (75-99) mg/dL Lactate Dehydrogenase 691 H (313-618) U/L C-Reactive Protein 320.0 H (<10.0) mg/L 01/17/21 Range/Units 06:57 WBC (3.8-10.6) k/uL RBC (3.80-5.40) m/uL Hgb (11.4-16.0) gm/dL Hct (34.0-46.0) % MCHC (31.0-37.0) g/dL RDW (11.5-15.5) % Neutrophils # (1.3-7.7) k/uL Lymphocytes # (1.0-4.8) k/uL D-Dimer (<0.60) mg/L FEU Sodium (137-145) mmol/L Chloride (98-107) mmol/L Carbon Dioxide (22-30) mmol/L BUN (7-17) mg/dL Glucose (74-99) mg/dL POC Glucose (mg/dL) 119 H (75-99) mg/dL Lactate Dehydrogenase (313-618) U/L C-Reactive Protein (<10.0) mg/L Microbiology - Last 24 Hours (Table) 01/15/21 12:16 Blood Culture - Preliminary Blood No Growth after 24 hours 01/16/21 09:37 Gram Stain - Preliminary Sputum Sputum Culture - Preliminary 01/15/21 12:11 Blood Culture - Preliminary Blood No Growth after 24 hours <Linda Elise - Last Filed: 01/17/21 20:07> Objective - Vital Signs Vital signs: Vital Signs Temp 99.2 F 01/17/21 17:35 Pulse 79 01/17/21 17:35 Resp 18 01/17/21 17:35 BP 163/68 01/17/21 17:35 Pulse Ox 91 L 01/17/21 17:35 Intake & Output 01/17/21 01/17/21 01/18/21 06:59 18:59 06:59 Intake Total 250 Output Total 600 Balance -600 250 Intake: Intake, IV Titration 250 Amount Remdesivir 100 mg In 250 Sodium Chloride 0.9% 250 ml @ 250 mls/hr IVPB DAILY@1200 [facility] Rx#: [id number] Output: Urine 600 Other: Voiding Method Indwelling Catheter Indwelling Catheter - Labs CBC & Chem 7: 01/17/21 10:44 01/17/21 10:44 Labs: Abnormal Lab Results - Last 24 Hours (Table) 01/16/21 01/17/21 01/17/21 Range/Units 20:56 06:57 10:44 WBC 12.8 H (3.8-10.6) k/uL RBC 3.53 L (3.80-5.40) m/uL Hgb 9.6 L (11.4-16.0) gm/dL Hct 31.5 L (34.0-46.0) % MCHC 30.5 L (31.0-37.0) g/dL RDW 17.5 H (11.5-15.5) % Chloride (98-107) mmol/L Carbon Dioxide (22-30) mmol/L BUN (7-17) mg/dL Glucose (74-99) mg/dL POC Glucose (mg/dL) 177 H 119 H (75-99) mg/dL 01/17/21 01/17/21 01/17/21 Range/Units 10:44 11:57 16:53 WBC (3.8-10.6) k/uL RBC (3.80-5.40) m/uL Hgb (11.4-16.0) gm/dL Hct (34.0-46.0) % MCHC (31.0-37.0) g/dL RDW (11.5-15.5) % Chloride 97 L (98-107) mmol/L Carbon Dioxide 39 H (22-30) mmol/L BUN 23 H (7-17) mg/dL Glucose 153 H (74-99) mg/dL POC Glucose (mg/dL) 113 H 159 H (75-99) mg/dL Microbiology - Last 24 Hours (Table) 01/15/21 12:11 Blood Culture - Preliminary Blood No Growth after 48 hours 01/15/21 12:16 Blood Culture - Preliminary Blood No Growth after 24 hours 01/16/21 09:37 Gram Stain - Preliminary Sputum Sputum Culture - Preliminary Assessment and Plan Assessment: Patient seen and examined independently. Patient was also seen by Kapil Gonzalez NP and case was discussed. I am in agreement with subjective, physical exam, assessment and plan as written above and amended below. Reports that she is feeling much better today, no nuasea, no vomiting, no diarrhea, breathing back to near baseline General: chornically ill appearing, appears older than stated age, no distress Derm: warm, dry Head: atraumatic, normocephalic, symmetric Eyes: EOMI, no lid lag, anicteric sclera Mouth: no lip lesion, mucus membranes moist Cardiovascular: S1S2 reg, no murmur, positive posterior tibial pulse bilateral, Lungs: wheeze bilateral , no accessory muscle use, + conversational dyspnea Abdominal: soft, nontender to palpation, no guarding, no appreciable organomegaly Psych: Alert, oriented, appropriate affect
[2021-01-17 11:01] LABS: Anisocytosis Slight; HCT 31.5 % (34.0-46.0); HGB 9.6 gm/dL (11.4-16.0); Hypochromasia Marked; MCH 27.3 pg (25.0-35.0); MCHC 30.5 g/dL (31.0-37.0); MCV 89.3 fL (80.0-100.0); Mean Platelet Volume 7.8; Platelet Count 190 k/uL (150-450); RBC 3.53 m/uL (3.80-5.40); RDW 17.5 % (11.5-15.5); WBC 12.8 k/uL (3.8-10.6)
[2021-01-17 11:09] LABS: African American GFR (CKD) >90 (>60 ml/min/1.73 sqM); Anion Gap 3 mmol/L; Blood Urea Nitrogen 23 mg/dL (7-17); Calcium 8.4 mg/dL (8.4-10.2); Carbon Dioxide 39 mmol/L (22-30); Chloride 97 mmol/L (98-107); Glucose 153 mg/dL (74-99); Magnesium 1.9 mg/dL (1.6-2.3); Non-African American GFR(CKD) >90 (>60 ml/min/1.73 sqM); Potassium 3.9 mmol/L (3.5-5.1); Sodium 139 mmol/L (137-145)
[2021-01-17 11:59] LABS: Glucose,Whole Blood 113 mg/dL (75-99)
[2021-01-17] MEDS: REMDESIVIR 100 MG in SODIUM CHLORIDE 0.9% 250 ML IVPB SCH (12:15)
--- NOTE | 2021-01-17 13:21 | P.PN ---
Subjective Progress Note Date: 01/17/21 65-year-old female well-known to our service, with a history of severe COPD, who presents to the emergency department on January 15, at 10:30 AM, with complaints of shortness of breath. The patient was recently in the hospital between December 30 and January 05, with a COPD exacerbation. At that time, she tested negative for COVID 19. The patient states that since she got home, she has not been feeling well. The patient complains of worsening shortness of breath, chest tightness, cough, minimal phlegm production, and just overall weakness. Saturations are in the high 80s and low 90s on room air, and do increase into the low 90s, with O2. Currently she is on 5 L, and normally at home she is on 3 L. She has not been eating well she tells us, and just generally feeling weak and fatigued. She was brought in by EMS, and in route, did get some breathing treatments. She did test positive for COVID on this admission. White count 20.9, hemoglobin 9.9, hematocrit 31.3, and platelet count 231,000. PT INR and PTT were normal. D- dimer was 1.2. Sodium 133, potassium 4.2, chlorides 86, CO2 47, anion gap 0, BUN 14, and creatinine 0.55. The patient's LDH was 906, C-reactive protein 212, N-terminal proBNP 331, and pro-calcitonin 0.61. Chest x-ray showed some right lower lobe consolidation. CT angiogram was negative for pulmonary embolism, but did show some scattered infiltrates with large more focal consolidations in the right middle and lower lobe 01/17/2010 1 the patient is being seen for a follow-up. This patient is 65 with advanced COPD and the patient is also positive for Covid 19 related infection. Currently is on 5 L of oxygen by nasal cannula and she is typically on 3 L of ox ygen at home. The patient is currently on Decadron 6 mg IV every 24 hours. The patient was also started on REM. Outpatient medications of been all resumed. The patient's white cell count was 11.6. She has chronic metabolic alkalosis. The d-dimer is at 1.28. LDH was 691 and CRP was 320. Chest x-ray was abnormal with bilateral pneumonia and the patient had a CT angios the chest that showed n o evidence of any pulmonary embolism and it showed scattered infiltrates and more focal areas of consolidation in the right middle lobe and the lower lobe. Based on that, the patient was also started on broad-spectrum antibiotics and the patient is currently on IV Rocephin in addition. Home medication of been all resumed. Lovenox at 40 g subcu every 24 hours. The patient was last hospitalized in early December. At that time she was negative for Covid 19. Currently she is still on 5 L about 2 by nasal cannula. A chest x-ray showing peripheral infiltrates more so on the right typical of underlying Covid infection. She is feeling fatigued and tired. No worsening shortness of breath. The pro-calcitonin level was 0.61 and the patient is currently on antibiotics. Inflammatory markers have not been today Objective - Vital Signs Vital signs: Vital Signs Temp 98.4 F 01/17/21 09:42 Pulse 85 01/17/21 09:42 Resp 18 01/17/21 09:42 BP 158/70 01/17/21 09:42 Pulse Ox 94 L 01/17/21 09:42 Intake & Output 01/16/21 01/17/21 01/17/21 18:59 06:59 18:59 Output Total 1000 600 Balance -1000 -600 Output: Urine 1000 600 Other: Voiding Method Indwelling Catheter Indwelling Catheter Indwelling Catheter # Bowel Movements 1 - Exam Mild tachypnea, currently on 5 L nasal cannula, with saturations of 91%. No audible wheezing, or use of accessory muscles. HEENT examination is grossly unremarkable. Mucous membranes are moist. No oral lesions. Neck supple. Full range of motion. No adenopathy thyromegaly or neck vein distention. Cardiovascular examination reveals regular rhythm rate. S1-S2 normal. No S3 or S4. No discernible murmur noted. Heart sounds are distant. . Lungs reveal bilateral coarse rhonchi. Bibasilar crackles appreciated. Mild expiratory wheezes are noted. Breath sounds are equal bilaterally but severely diminished throughout. Abdomen soft bowel sounds are heard. No masses or tenderness. Extremities are intact. No cyanosis clubbing or edema. Skin is without rash or lesion. Neurologic examination is brief but nonfocal. - Labs CBC & Chem 7: 01/17/21 10:44 01/17/21 10:44 Labs: Abnormal Lab Results - Last 24 Hours (Table) 01/16/21 01/16/21 01/16/21 Range/Units 16:38 16:51 16:51 WBC 11.6 H (3.8-10.6) k/uL RBC 3.40 L (3.80-5.40) m/uL Hgb 9.1 L (11.4-16.0) gm/dL Hct 30.0 L (34.0-46.0) % MCHC 30.5 L (31.0-37.0) g/dL RDW 17.8 H (11.5-15.5) % Neutrophils # 10.4 H (1.3-7.7) k/uL Lymphocytes # 0.4 L (1.0-4.8) k/uL D-Dimer 1.28 H (<0.60) mg/L FEU Sodium (137-145) mmol/L Chloride (98-107) mmol/L Carbon Dioxide (22-30) mmol/L BUN (7-17) mg/dL Glucose (74-99) mg/dL POC Glucose (mg/dL) 128 H (75-99) mg/dL Lactate Dehydrogenase (313-618) U/L C-Reactive Protein (<10.0) mg/L 01/16/21 01/16/21 01/17/21 Range/Units 16:51 20:56 06:57 WBC (3.8-10.6) k/uL RBC (3.80-5.40) m/uL Hgb (11.4-16.0) gm/dL Hct (34.0-46.0) % MCHC (31.0-37.0) g/dL RDW (11.5-15.5) % Neutrophils # (1.3-7.7) k/uL Lymphocytes # (1.0-4.8) k/uL D-Dimer (<0.60) mg/L FEU Sodium 136 L (137-145) mmol/L Chloride 91 L (98-107) mmol/L Carbon Dioxide 42 H* (22-30) mmol/L BUN 21 H (7-17) mg/dL Glucose 126 H (74-99) mg/dL POC Glucose (mg/dL) 177 H 119 H (75-99) mg/dL Lactate Dehydrogenase 691 H (313-618) U/L C-Reactive Protein 320.0 H (<10.0) mg/L 01/17/21 01/17/21 01/17/21 Range/Units 10:44 10:44 11:57 WBC 12.8 H (3.8-10.6) k/uL RBC 3.53 L (3.80-5.40) m/uL Hgb 9.6 L (11.4-16.0) gm/dL Hct 31.5 L (34.0-46.0) % MCHC 30.5 L (31.0-37.0) g/dL RDW 17.5 H (11.5-15.5) % Neutrophils # (1.3-7.7) k/uL Lymphocytes # (1.0-4.8) k/uL D-Dimer (<0.60) mg/L FEU Sodium (137-145) mmol/L Chloride 97 L (98-107) mmol/L Carbon Dioxide 39 H (22-30) mmol/L BUN 23 H (7-17) mg/dL Glucose 153 H (74-99) mg/dL POC Glucose (mg/dL) 113 H (75-99) mg/dL Lactate Dehydrogenase (313-618) U/L C-Reactive Protein (<10.0) mg/L Microbiology - Last 24 Hours (Table) 01/15/21 12:16 Blood Culture - Preliminary Blood No Growth after 24 hours 01/16/21 09:37 Gram Stain - Preliminary Sputum Sputum Culture - Preliminary 01/15/21 12:11 Blood Culture - Preliminary Blood No Growth after 24 hours Assessment and Plan Plan: 1 Shortness of breath, multifactorial, in part related to her severe COPD, but also, secondary to COVID 19 pneumonia/pneumonitis. The patient is currently on 5 L by nasal cannula. The patient is being treated accordingly with Decadron and Remdesivir , day #2 2 Recent hospitalization between December 30 and January 05, for a COPD exacerbation. 3 Chronic hypoxemic respiratory failure, currently on home O2 at 3 L. 4 History of deep venous thrombosis. 5 History of hypertension. 6 History of rheumatoid arthritis. 7 History of colitis. 8 Osteopenia/osteoporosis. 9 Chronic back pain. 10 History of restless leg syndrome. 11 History of vulvar cancer. 12 Previous history of bowel resection. 13 Multiple other medical problems and comorbidities. Plan Continue Decadron and REM day #2 Continue vitamin C and vitamin D and zinc supplements Lovenox for DVT prophylaxis Home medications of been all resumed Advanced lung disease with high risk of progression in regards to Covid ventilated pneumonia. We'll continue to follow.
[2021-01-17 16:55] LABS: Glucose,Whole Blood 159 mg/dL (75-99)
[2021-01-17] MEDS: MULTIVITAMINS, THERA 1 EACH TAB PO SCH (17:18)
[2021-01-17] MEDS: POTASSIUM CHLORIDE ER 10 MEQ TAB.ER.PRT PO SCH (17:18)
[2021-01-17] MEDS: MAGNESIUM OXIDE 400 MG TAB PO SCH (17:19)
[2021-01-17 20:10] LABS: Glucose,Whole Blood 232 mg/dL (75-99)
[2021-01-17] MEDS: MONTELUKAST 10 MG TAB PO SCH (21:01)
[2021-01-17] MEDS: MELATONIN 3 MG TABLET PO SCH (21:03)
[2021-01-18] MEDS: SODIUM CHLORIDE 0.9% 1,000 ML IV SCH (02:37)
[2021-01-18] MEDS: ALBUTEROL HFA INHALER INHALATION PRN ×5 (03:57→20:29)
[2021-01-18] MEDS: GABAPENTIN 100 MG CAP PO SCH ×3 (05:42→21:36)
[2021-01-18] MEDS: PANTOPRAZOLE 40 MG TABLET PO SCH (05:42)
[2021-01-18] MEDS: VERAPAMIL 80 MG TAB PO SCH ×3 (06:13→16:32)
[2021-01-18 07:02] LABS: Glucose,Whole Blood 115 mg/dL (75-99)
[2021-01-18] MEDS: INSULIN ASPART (NovoLOG) 100 UNIT/ML VIAL SQ SCH ×4 (07:04→21:36)
[2021-01-18] MEDS: CHOLECALCIFEROL 25 MCG (1000 IU) TABLET PO SCH (08:24)
[2021-01-18] MEDS: ASCORBIC ACID 500 MG TAB PO SCH (08:24)
[2021-01-18] MEDS: dexAMETHasone 2 MG TAB PO SCH (08:24)
[2021-01-18] MEDS: FUROSEMIDE 20 MG TAB PO SCH (08:25)
[2021-01-18] MEDS: ZINC SULFATE 220 MG CAP PO SCH (08:25)
[2021-01-18] MEDS: LORATADINE 10 MG TAB PO SCH (08:25)
[2021-01-18] MEDS: MORPHINE SULFATE ER 15 MG TABLET PO SCH ×2 (08:25→21:34)
[2021-01-18] MEDS: ENOXAPARIN 40 MG/0.4 ML SYRINGE SQ SCH (08:26)
[2021-01-18] MEDS: LIDOCAINE 5% PATCH TOPICAL SCH (08:26)
[2021-01-18] MEDS: DULoxetine HCL 30 MG CAPSULE.DR PO SCH (08:27)
[2021-01-18] MEDS: NYSTATIN 100,000 UNIT/ML SUSP 500,000 UNIT/5 ML CUP PO SCH ×3 (08:28→16:32)
[2021-01-18] MEDS: THEOPHYLLINE 24 HOUR 400 MG CAP.ER.24H PO SCH (08:28)
[2021-01-18] MEDS: FLUTICASONE 50MCG/SPRAY NASAL 16GM EA NOSTRIL SCH (08:28)
[2021-01-18] MEDS: FLUTICASONE 220 MCG INHALER INHALATION SCH ×2 (08:53→20:29)
[2021-01-18] MEDS: MINERAL OIL-WHITE PETROLATUM 120 GM JAR TOPICAL SCH ×2 (09:35→21:37)
[2021-01-18 11:15] LABS: Glucose,Whole Blood 121 mg/dL (75-99)
[2021-01-18] MEDS: REMDESIVIR 100 MG in SODIUM CHLORIDE 0.9% 250 ML IVPB SCH (11:25)
--- NOTE | 2021-01-18 11:30 | XR ---
EXAMINATION TYPE: XR chest 1V portable DATE OF EXAM: 01/18/2021 CLINICAL HISTORY: Difficulty breathing progress study. Worsening covid pneumonitis TECHNIQUE: Single AP portable upright view of the chest is obtained. COMPARISON: Chest x-ray from 2 days earlier. CTA chest 3 days earlier. FINDINGS: Persistent cardiomegaly with atherosclerotic thoracic aorta. Background chronic parenchyma l change with persistent right mid to basilar opacities and worsening left mid to basilar opacities. Probable tiny right greater than left pleural effusions. Osseous structures are intact. IMPRESSION: Cardiomegaly and chronic parenchymal changes with persistent right mid to basilar multifo chris acute opacities and worsening left mid to basilar acute multifocal opacities.
--- NOTE | 2021-01-18 11:35 | P.PN ---
Subjective Progress Note Date: 01/18/21 Principal diagnosis: Acute on chronic respiratory failure with hypoxia resulting from Covid 19 pneumonitis on acute exacerbation of end-stage COPD Hospital course: Patient is a 65-year-old female with a past medical history of advanced end- stage COPD home oxygen dependent on 3 L at all times, chronic hypoxic respiratory failure, history of Klebsiella pneumonia infection, and rheumatoid arthritis whom presented to [facility] emergency department with a chief complaint of shortness of breath. Patient had recent admission 12/30/20 through 01/05/21 for treatment of acute on chronic hypoxic respiratory failure with Klebsiella pneumonia and sputum culture positive for Erica albicans. Patient was discharged to [facility] for continued PT/OT therapy and was discharged home with prescriptions for continued antibiotics: Augmentin as well as a prednisone taper. She reports she took her medications as prescribed, but sta angélica since discharge she has not felt any better and states over the past couple days she has had excessive fatigue where all she has done his sleep, felt extremely weak, decreased appetite, and has noticed an increase in her shortness of breath. Patient denies any increases in or changes in her chronic cough, stating she has a once in a while productive cough of thick yellow phlegm. Reports that secondary to these complaints, the provider at [facility] ordered a Covid test on patient in which patient tested positive and was sent to the hospital for evaluation. In the emergency department, patient was found to have significant leukocytosis with a WBC count of 20.9 with a left shift with neutrophils of 18.7, hemoglobin of 9.9, elevated d-dimer 1.12, hyponatremia with sodium of 133, hypochloremia with chloride of 86, a carbon dioxide of 47, elevated LDH of 906, elevated CRP of 211.7, pro-calcitonin of 0.61, and troponin 0.019. Urinalysis completed negative for infection. Blood cultures and sputum cultures sent to lab for analysis and pending results. Chest x-ray revealing right lower lobe consolidation. CTA negative for acute PE revealing scattered infiltrates with larger more focal consolidations in the right middle dependent lower lobe. Physical exam: 01/18/21: Patient seen and fully evaluated at the bedside. She did well thr oughout the night on BiPAP with SpO2 98-99%. Upon being taken off of BiPAP this morning, patient with increased oxygen needs and oxygen was bumped up to 6 L high flow NC to maintain SpO2 of 88-89%. Patient reported increased shortness of breath and continued worsening of nonproductive cough. Pt with increased work of breathing and accessory muscle usage. She continues with conversational dyspnea speaking approximately 3 words prior to stopping to take a breath. In addition patient continues to report anxiety and fever over having Covid 19 virus infection. RT at bedside administering MDI inhalers at this time. Patient continues to deny having any fevers, chills, diaphoresis, headache, lightheadedness, dizziness, chest pain or palpitations, abdominal pain, nausea, vomiting, diarrhea, changes in or difficulties with urinary function, or experiencing any pain/tingling/numbness/weakness in extremities. We will repeat chest x-ray. General: non toxic, no distress, appears at stated age Derm: warm, dry Head: atraumatic, normocephalic, symmetric Eyes: EOMI, no lid lag, anicteric sclera Mouth: no lip lesion, mucus membranes moist Cardiovascular: S1-S2 normal with regular rate and rhythm. No murmurs, rubs, or gallops noted. 2+ pitting bilateral lower extremity edema. Lungs: Respirations slightly labored with accessory movement. O2 increased to maintain SpO2 80-89%. Lungs with diffuse rhonchi and expiratory wheezes bilaterally. Coarse raspy nonproductive cough present. Abdominal: Soft distended, nontender to palpation, no guarding, no appreciable organomegaly. Ext: No gross muscle atrophy, no contractures. 2+ pitting bilateral lower extremity edema. Neuro: CN II-XI grossly intact, no focal neuro deficits Psych: Alert, oriented, appropriate affect Assessment and Plan of Care: Acute on chronic respiratory failure with hypoxia secondary to Covid 19 pneumonitis in addition to end-stage COPD -Covid test reported as positive on 01/15/21 -Chest x-ray revealing right lower lobe consolidation. -CTA negative for acute PE revealing scattered infiltrates with larger more focal consolidations in the right middle dependent lower lobe -Contact plus droplet precautions. -Pulmonology following, appreciate further recommendations -Remdesivir being administered, today is day 3 of 4 doses -Decadron 6 mg daily, today is day 4 of steroids. -Vitamin C, vitamin D, zinc, melatonin, and guaifenesin. -Continue oxygen, titrated as needed to maintain SpO2 equal to or greater than 90%. -MDIs as needed for increased shortness of breath and/or wheezing. -Theophylline -Sputum cultures pending, continue Rocephin pending results. Chronic cor pulmonale -Continue Lasix 20 mg daily. -Heart healthy diet. Chronic pain -Continue daily medication regimen with MS Contin, lidocaine patches, and Neurontin. Obesity with BMI of 35 -Encourage follow-up with PCP for outpatient counseling on diet and nutrition with structured weight loss. 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 CODE STATUS: Full code DVT prophylaxis: Lovenox Discussed with: Patient Anticipated discharge date: Clinical course to be determined Anticipated discharge place Back to [facility] A total of 45 minutes was spent on the care of this complex patient more than 50% of the time was spent in counseling and care coordination. Objective - Vital Signs Vital signs: Vital Signs Temp 98.2 F 01/18/21 06:03 Pulse 82 01/18/21 06:03 Resp 21 01/18/21 06:03 BP 180/60 01/18/21 06:03 Pulse Ox 90 L 01/18/21 10:03 Intake & Output 01/17/21 01/18/21 01/18/21 18:59 06:59 18:59 Intake Total 250 1520 50 Output Total 650 Balance 250 870 50 Intake: Intake, IV Titration 250 1200 50 Amount Remdesivir 100 mg In 250 Sodium Chloride 0.9% 250 ml @ 250 mls/hr IVPB DAILY@1200 [facility] Rx#: [id number] Sodium Chloride 0.9% 1, 1200 000 ml @ 100 mls/hr IV . Q10H [facility] Rx#:[id number] cefTRIAXone 2 gm In 50 Sodium Chloride 0.9% 50 ml @ 100 mls/hr IVPB Q24HR [facility] Rx#:[id number] Oral 320 Output: Urine 650 Other: Voiding Method Indwelling Catheter Indwelling Catheter Indwelling Catheter # Bowel Movements 1 - Labs CBC & Chem 7: 01/17/21 10:44 01/17/21 10:44 Labs: Abnormal Lab Results - Last 24 Hours (Table) 01/17/21 01/17/21 01/17/21 Range/Units 10:44 10:44 11:57 WBC 12.8 H (3.8-10.6) k/uL RBC 3.53 L (3.80-5.40) m/uL Hgb 9.6 L (11.4-16.0) gm/dL Hct 31.5 L (34.0-46.0) % MCHC 30.5 L (31.0-37.0) g/dL RDW 17.5 H (11.5-15.5) % Chloride 97 L (98-107) mmol/L Carbon Dioxide 39 H (22-30) mmol/L BUN 23 H (7-17) mg/dL Glucose 153 H (74-99) mg/dL POC Glucose (mg/dL) 113 H (75-99) mg/dL 01/17/21 01/17/21 01/18/21 Range/Units 16:53 20:07 07:00 WBC (3.8-10.6) k/uL RBC (3.80-5.40) m/uL Hgb (11.4-16.0) gm/dL Hct (34.0-46.0) % MCHC (31.0-37.0) g/dL RDW (11.5-15.5) % Chloride (98-107) mmol/L Carbon Dioxide (22-30) mmol/L BUN (7-17) mg/dL Glucose (74-99) mg/dL POC Glucose (mg/dL) 159 H 232 H 115 H (75-99) mg/dL Microbiology - Last 24 Hours (Table) 01/15/21 12:16 Blood Culture - Preliminary Blood No Growth after 48 hours 01/15/21 12:11 Blood Culture - Preliminary Blood No Growth after 48 hours
[2021-01-18 11:45] LABS: HCT 30.8 % (37.2-46.3); HGB 8.4 g/dL (12.0-15.0); MCH 26.1 pg (27.0-32.0); MCHC 27.3 g/dL (32.0-37.0); MCV 95.7 fL (80.0-97.0); Mean Platelet Volume 11.5 fL (9.5-12.2); Platelet Count 173 X 10*3/uL (140-440); RBC 3.22 X 10*6/uL (4.10-5.20); RDW 17.8 % (11.5-14.5); WBC 8.24 X 10*3/uL (4.50-10.00)
--- NOTE | 2021-01-18 13:18 | P.PN ---
Subjective Progress Note Date: 01/18/21 65-year-old female well-known to our service, with a history of severe COPD, who presents to the emergency department on January 15, at 10:30 AM, with complaints of shortness of breath. The patient was recently in the hospital between December 30 and January 05, with a COPD exacerbation. At that time, she tested negative for COVID 19. The patient states that since she got home, she has not been feeling well. The patient complains of worsening shortness of breath, chest tightness, cough, minimal phlegm production, and just overall weakness. Saturations are in the high 80s and low 90s on room air, and do increase into the low 90s, with O2. Currently she is on 5 L, and normally at home she is on 3 L. She has not been eating well she tells us, and just generally feeling weak and fatigued. She was brought in by EMS, and in route, did get some breathing treatments. She did test positive for COVID on this admission. White count 20.9, hemoglobin 9.9, hematocrit 31.3, and platelet count 231,000. PT INR and PTT were normal. D- dimer was 1.2. Sodium 133, potassium 4.2, chlorides 86, CO2 47, anion gap 0, BUN 14, and creatinine 0.55. The patient's LDH was 906, C-reactive protein 212, N-terminal proBNP 331, and pro-calcitonin 0.61. Chest x-ray showed some right lower lobe consolidation. CT angiogram was negative for pulmonary embolism, but did show some scattered infiltrates with large more focal consolidations in the right middle and lower lobe 01/17/2010 1 the patient is being seen for a follow-up. This patient is 65 with advanced COPD and the patient is also positive for Covid 19 related infection. Currently is on 5 L of oxygen by nasal cannula and she is typically on 3 L of o xygen at home. The patient is currently on Decadron 6 mg IV every 24 hours. The patient was also started on REM. Outpatient medications of been all resumed. The patient's white cell count was 11.6. She has chronic metabolic alkalosis. The d-dimer is at 1.28. LDH was 691 and CRP was 320. Chest x-ray was abnormal with bilateral pneumonia and the patient had a CT angios the chest that showed no evidence of any pulmonary embolism and it showed scattered infiltrates and more focal areas of consolidation in the right middle lobe and the lower lobe. Based on that, the patient was also started on broad-spectrum antibiotics and the patient is currently on IV Rocephin in addition. Home medic ation of been all resumed. Lovenox at 40 g subcu every 24 hours. The patient was last hospitalized in early December. At that time she was negative for Covid 19. Currently she is still on 5 L about 2 by nasal cannula. A chest x-ray showing peripheral infiltrates more so on the right typical of underlying Covid infection. She is feeling fatigued and tired. No worsening shortness of breath. The pro-calcitonin level was 0.61 and the patient is currently on antibiotics. Inflammatory markers have not been today 01/16/2021 on seeing the patient for a follow-up. The patient is currently on 4 L of Oxymizer by nasal cannula. The patient is currently being treated for COPD exacerbation and Covid 19 related pneumonia. The patient is currently on Decadron 6 mg IV every 24 hours. She is also on REM and she is on day #3. Overall, doing well. She is less bronchospastic and wheezy compared to yesterday. She is using the BiPAP at pressure of 10/5 overnight and currently is on 4 L. She is on Rocephin as a broad-spectrum antibiotic coverage. Note that she typically has oxygen at home at 3 L. In terms of her blood work, the patient has no inflammatory markers checked. Rest of the blood work is within normal limits for now. The plan is to send this patient to rehab. She has a BiPAP machine at home which I asked her to bring in For me to check and make appropriate adjustments to that she continue the same machine at the rehab facility. Objective - Vital Signs Vital signs: Vital Signs Temp 98.0 F 01/18/21 10:00 Pulse 78 01/18/21 10:00 Resp 19 01/18/21 10:00 BP 180/48 01/18/21 10:00 Pulse Ox 90 L 01/18/21 10:03 Intake & Output 01/17/21 01/18/21 01/18/21 18:59 06:59 18:59 Intake Total 250 1520 50 Output Total 650 Balance 250 870 50 Intake: Intake, IV Titration 250 1200 50 Amount Remdesivir 100 mg In 250 Sodium Chloride 0.9% 250 ml @ 250 mls/hr IVPB DAILY@1200 [facility] Rx#: [id number] Sodium Chloride 0.9% 1, 1200 000 ml @ 100 mls/hr IV . Q10H [facility] Rx#:[id number] cefTRIAXone 2 gm In 50 Sodium Chloride 0.9% 50 ml @ 100 mls/hr IVPB Q24HR [facility] Rx#:[id number] Oral 320 Output: Urine 650 Other: Voiding Method Indwelling Catheter Indwelling Catheter Indwelling Catheter # Bowel Movements 1 - Exam Mild tachypnea, currently on 4 L nasal cannula, with saturations of 91%. No audible wheezing, or use of accessory muscles. HEENT examination is grossly unremarkable. Mucous membranes are moist. No oral lesions. Neck supple. Full range of motion. No adenopathy thyromegaly or neck vein distention. Cardiovascular examination reveals regular rhythm rate. S1-S2 normal. No S3 or S4. No discernible murmur noted. Heart sounds are distant. . Lungs reveal bilateral coarse rhonchi. Bibasilar crackles appreciated. Mild expiratory wheezes are noted. Breath sounds are equal bilaterally but severely diminished throughout. Abdomen soft bowel sounds are heard. No masses or tenderness. Extremities are intact. No cyanosis clubbing or edema. Skin is without rash or lesion. Neurologic examination is brief but nonfocal. - Labs CBC & Chem 7: 01/18/21 06:45 01/17/21 10:44 Labs: Abnormal Lab Results - Last 24 Hours (Table) 01/17/21 01/17/21 01/18/21 Range/Units 16:53 20:07 06:45 RBC 3.22 L (4.10-5.20) X 10*6/uL Hgb 8.4 L (12.0-15.0) g/dL Hct 30.8 L (37.2-46.3) % MCH 26.1 L (27.0-32.0) pg MCHC 27.3 L (32.0-37.0) g/dL RDW 17.8 H (11.5-14.5) % POC Glucose (mg/dL) 159 H 232 H (75-99) mg/dL 01/18/21 01/18/21 Range/Units 07:00 11:13 RBC (4.10-5.20) X 10*6/uL Hgb (12.0-15.0) g/dL Hct (37.2-46.3) % MCH (27.0-32.0) pg MCHC (32.0-37.0) g/dL RDW (11.5-14.5) % POC Glucose (mg/dL) 115 H 121 H (75-99) mg/dL Microbiology - Last 24 Hours (Table) 01/15/21 12:16 Blood Culture - Preliminary Blood No Growth after 48 hours 01/15/21 12:11 Blood Culture - Preliminary Blood No Growth after 48 hours Assessment and Plan Plan: 1 Shortness of breath, multifactorial, in part related to her severe COPD, but also, secondary to COVID 19 pneumonia/pneumonitis. The patient is currently on 4 L by nasal cannula. The patient is being treated accordingly with Decadron and Remdesivir , day #3 2 Recent hospitalization between December 30 and January 05, for a COPD exacerbation. 3 Chronic hypoxemic respiratory failure, currently on home O2 at 3 L. 4 History of deep venous thrombosis. 5 History of hypertension. 6 History of rheumatoid arthritis. 7 History of colitis. 8 Osteopenia/osteoporosis. 9 Chronic back pain. 10 History of restless leg syndrome. 11 History of vulvar cancer. 12 Previous history of bowel resection. 13 Multiple other medical problems and comorbidities. Plan We'll ask the patient to bring in her BiPAP machine from home for me to check and make adjustments if needed. We're looking for a rehab transfer to later stage I she is more ready. She is feeling better and less focused bronchospastic and wheezy and a chest x-ray from today showing stable bilateral pulmonary infiltrates are to Covid 19 pneumonia. She is completing Decadron and REM. Continue Decadron and REM day #3 Continue vitamin C and vitamin D and zinc supplements Lovenox for DVT prophylaxis Home medications of been all resumed Advanced lung disease with high risk of progression in regards to Covid ventilated pneumonia. We'll continue to follow.
[2021-01-18 14:36] LABS: African American GFR (CKD) 116.1 (60.0-200.0); Anion Gap 8.6 mmol/L (4.00-12.00); Calcium 8.3 mg/dL (8.7-10.3); Carbon Dioxide 37.4 mmol/L (21.6-31.8); Magnesium 1.8 mg/dL (1.5-2.4); Non-African American GFR(CKD) 100.1 (60.0-200.0); Potassium 4.3 mmol/L (3.5-5.5)
--- NOTE | 2021-01-18 15:41 | CDI ---
NDocumentation Clarification Form Date: 01/18/2021 03:22:21 PM From: Marilin Aranda RN CCDS Admit Date: 01/15/2021 02:05:00 PM Patient Name: Estelle Mohr Visit Number: [id number] Discharge Date: ATTENTION: The Clinical Documentation Specialists (CDI) and [facility] Coding Staff appreciate your assistance in clarifying documentation. Please respond to the clarification below the line at the bottom and electronically sign. The CDI & [facility] Coding staff will review the response and follow-up if needed. Please note: Queries are made part of the Legal Health Record. If you have any questions, please contact the author of this message via ITS. Dr. Rossy Melvin, The patient presented with the following clinical indicators. Additional clarification regarding the etiology/cause of the clinical indicators is requested. History/Risk Factors: 65-year-old female presents to the ED with shortness of breath. Medical History: Advanced end-stage COPD, chronic respiratory failure and chronic Cor pulmonale. Clinical Indicators: WBC 01/15: 20.0 Lactic acid 01/15: 1.2 Neutrophils 01/15: 18.7 Blood cultures 01/18: No growth after 48 hours. Sputum culture 01/18: Corynebacterium species. Vitals signs 01/15: 10:30 Temp 104.3 F Oral; HR 122; RR 18; SpO2 91% 4L nasal cannula Treatment: Antibiotic: 01/15 Rocephin 2,000mg IVP x1; 01/16 Rocephin 2gm IVPB Q24HR> Other Treatment: 01/16 Remdesivir 200mg IVPB x1; 01/17 Remdesivir 100mg IVPB Daily x 4 bags. 01/15 Hexadrol 6mg PO x1; 04/18 6mg PO Daily to current. IV Fluids: 01/15 0.9 NS IV 100mls/hr d/c 01/18. In your professional opinion, please clarify if these findings signify one of the following conditions: Sepsis POA Sepsis ruled out Other, please specify Unable to determine SIRS Criteria: 2 or more of the following may indicate SIRS Temperature < 96.8F (36C) or > 101.0F (38.3C) Heart Rate > 90 bpm Respiratory Rate > 20 breaths/min or PaCO2 < 32 mmHg White Blood Cell Count > 12,000 or < 4,000 cells/mm3 or > 10% bands (Template Last Reviewed: November 2020) Not septic MTDD
[2021-01-18 16:22] LABS: Glucose,Whole Blood 244 mg/dL (75-99)
[2021-01-18] MEDS: MULTIVITAMINS, THERA 1 EACH TAB PO SCH (16:32)
[2021-01-18] MEDS: POTASSIUM CHLORIDE ER 10 MEQ TAB.ER.PRT PO SCH (16:32)
[2021-01-18] MEDS: MAGNESIUM OXIDE 400 MG TAB PO SCH (16:32)
[2021-01-18 20:11] LABS: Glucose,Whole Blood 261 mg/dL (75-99)
[2021-01-18] MEDS: MELATONIN 3 MG TABLET PO SCH (21:34)
[2021-01-18] MEDS: MONTELUKAST 10 MG TAB PO SCH (21:36)
[2021-01-19] MEDS: PANTOPRAZOLE 40 MG TABLET PO SCH (05:18)
[2021-01-19] MEDS: GABAPENTIN 100 MG CAP PO SCH ×3 (05:18→21:18)
[2021-01-19 07:17] LABS: Glucose,Whole Blood 105 mg/dL (75-99)
[2021-01-19] MEDS: INSULIN ASPART (NovoLOG) 100 UNIT/ML VIAL SQ SCH ×4 (07:46→21:20)
[2021-01-19] MEDS: ENOXAPARIN 40 MG/0.4 ML SYRINGE SQ SCH (08:35)
[2021-01-19] MEDS: NYSTATIN 100,000 UNIT/ML SUSP 500,000 UNIT/5 ML CUP PO SCH ×3 (08:36→17:04)
[2021-01-19] MEDS: ZINC SULFATE 220 MG CAP PO SCH (08:36)
[2021-01-19] MEDS: ASCORBIC ACID 500 MG TAB PO SCH (08:36)
[2021-01-19] MEDS: THEOPHYLLINE 24 HOUR 400 MG CAP.ER.24H PO SCH (08:36)
[2021-01-19] MEDS: FLUTICASONE 50MCG/SPRAY NASAL 16GM EA NOSTRIL SCH (08:36)
[2021-01-19] MEDS: dexAMETHasone 2 MG TAB PO SCH (08:36)
[2021-01-19] MEDS: VERAPAMIL 80 MG TAB PO SCH ×3 (08:36→17:04)
[2021-01-19] MEDS: CHOLECALCIFEROL 25 MCG (1000 IU) TABLET PO SCH (08:36)
[2021-01-19] MEDS: DULoxetine HCL 30 MG CAPSULE.DR PO SCH (08:36)
[2021-01-19] MEDS: LORATADINE 10 MG TAB PO SCH (08:37)
[2021-01-19] MEDS: MINERAL OIL-WHITE PETROLATUM 120 GM JAR TOPICAL SCH ×2 (08:38→21:20)
[2021-01-19] MEDS: LIDOCAINE 5% PATCH TOPICAL SCH (08:38)
[2021-01-19] MEDS: FUROSEMIDE 20 MG TAB PO SCH (08:38)
[2021-01-19] MEDS: MORPHINE SULFATE ER 15 MG TABLET PO SCH ×2 (08:38→21:18)
[2021-01-19 08:49] LABS: HCT 31.7 % (37.2-46.3); HGB 8.9 g/dL (12.0-15.0); MCH 26.4 pg (27.0-32.0); MCHC 28.1 g/dL (32.0-37.0); MCV 94.1 fL (80.0-97.0); Mean Platelet Volume 10.8 fL (9.5-12.2); Platelet Count 175 X 10*3/uL (140-440); RBC 3.37 X 10*6/uL (4.10-5.20); RDW 17.5 % (11.5-14.5); WBC 8.33 X 10*3/uL (4.50-10.00)
[2021-01-19] MEDS: ALBUTEROL HFA INHALER INHALATION PRN ×4 (09:02→21:07)
[2021-01-19] MEDS: FLUTICASONE 220 MCG INHALER INHALATION SCH ×2 (09:03→21:07)
[2021-01-19 09:33] LABS: African American GFR (CKD) 116.1 (60.0-200.0); Calcium 8.4 mg/dL (8.7-10.3); Non-African American GFR(CKD) 100.1 (60.0-200.0); Potassium 4.3 mmol/L (3.5-5.5)
--- NOTE | 2021-01-19 11:17 | P.PN ---
Subjective Progress Note Date: 01/19/21 Pt still quite dyspneic on moving from bed to chair. From my understanding, pt has dyspnea at baseline, however, she says this is worse than normal for her. She still requires 5L NC to baseline of 3L. Objective - Vital Signs Vital signs: Vital Signs Temp 98.5 F 01/19/21 09:43 Pulse 83 01/19/21 09:43 Resp 15 01/19/21 09:43 BP 154/76 01/19/21 09:43 Pulse Ox 89 L 01/19/21 09:43 Intake & Output 01/18/21 01/19/21 01/19/21 18:59 06:59 18:59 Intake Total 50 250 Output Total 1100 800 Balance -1050 -800 250 Intake: IV 250 Remdesivir 100 mg In 250 Sodium Chloride 0.9% 250 ml @ 250 mls/hr IVPB DAILY@1200 [facility] Rx#: [id number] Intake, IV Titration 50 Amount cefTRIAXone 2 gm In 50 Sodium Chloride 0.9% 50 ml @ 100 mls/hr IVPB Q24HR [facility] Rx#:[id number] Output: Urine 1100 800 Other: Voiding Method Indwelling Catheter Indwelling Catheter Indwelling Catheter - Exam Gen: awake, alert HEENT: normocephalic, atraumatic, good hearing acuity, moist mucous membranes Resp: good air exchange, breathing comfortably with no accessory muscle use CVS: good distal perfusion x 4, GI: soft, NTTP, ND : no SPT, no CVAT, patterson catheter is not present MSK: no pitting edema, no clubbing Neuro: non-focal, moving all extremities Psych: cooperative, euthymic mood - Labs CBC & Chem 7: 01/19/21 06:02 01/19/21 06:02 Labs: Abnormal Lab Results - Last 24 Hours (Table) 01/18/21 01/18/21 01/18/21 Range/Units 06:45 06:45 11:13 RBC 3.22 L (4.10-5.20) X 10*6/uL Hgb 8.4 L (12.0-15.0) g/dL Hct 30.8 L (37.2-46.3) % MCH 26.1 L (27.0-32.0) pg MCHC 27.3 L (32.0-37.0) g/dL RDW 17.8 H (11.5-14.5) % Carbon Dioxide 37.4 H (21.6-31.8) mmol/L Creatinine 0.5 L (0.6-1.5) mg/dL BUN/Creatinine Ratio 40.00 H (12.00-20.00) Ratio Glucose 113 H (70-110) mg/dL POC Glucose (mg/dL) 121 H (75-99) mg/dL Calcium 8.3 L (8.7-10.3) mg/dL 01/18/21 01/18/21 01/19/21 Range/Units 16:21 20:09 06:02 RBC 3.37 L (4.10-5.20) X 10*6/uL Hgb 8.9 L (12.0-15.0) g/dL Hct 31.7 L (37.2-46.3) % MCH 26.4 L (27.0-32.0) pg MCHC 28.1 L (32.0-37.0) g/dL RDW 17.5 H (11.5-14.5) % Carbon Dioxide (21.6-31.8) mmol/L Creatinine (0.6-1.5) mg/dL BUN/Creatinine Ratio (12.00-20.00) Ratio Glucose (70-110) mg/dL POC Glucose (mg/dL) 244 H 261 H (75-99) mg/dL Calcium (8.7-10.3) mg/dL 01/19/21 01/19/21 Range/Units 06:02 07:12 RBC (4.10-5.20) X 10*6/uL Hgb (12.0-15.0) g/dL Hct (37.2-46.3) % MCH (27.0-32.0) pg MCHC (32.0-37.0) g/dL RDW (11.5-14.5) % Carbon Dioxide 39.0 H (21.6-31.8) mmol/L Creatinine 0.5 L (0.6-1.5) mg/dL BUN/Creatinine Ratio 42.00 H (12.00-20.00) Ratio Glucose (70-110) mg/dL POC Glucose (mg/dL) 105 H (75-99) mg/dL Calcium 8.4 L (8.7-10.3) mg/dL Microbiology - Last 24 Hours (Table) 01/15/21 12:16 Blood Culture - Preliminary Blood No Growth after 72 hours 01/16/21 09:37 Gram Stain - Final Sputum Sputum Culture - Final Corynebacterium species 01/15/21 12:11 Blood Culture - Preliminary Blood No Growth after 72 hours Assessment and Plan Assessment: Acute on chronic respiratory failure with hypoxia secondary to Covid 19 pneumonitis in addition to end-stage COPD -Covid test reported as positive on 01/15/21 -Chest x-ray revealing right lower lobe consolidation. -CTA negative for acute PE revealing scattered infiltrates with larger more focal consolidations in the right middle dependent lower lobe -Contact plus droplet precautions. -Pulmonology following, appreciate further recommendations -Remdesivir being administered, today is day 3 of 4 doses -Decadron 6 mg daily, today is day 5 of steroids. -Vitamin C, vitamin D, zinc, melatonin, and guaifenesin. -Continue oxygen, titrated as needed to maintain SpO2 equal to or greater than 90%. -MDIs as needed for increased shortness of breath and/or wheezing. -Theophylline -Sputum cultures = corynebacterium spp, pt was on ceftriaxone 01/16-01/18, abx d/c'd on 01/19, will trend clinical status and consider re-initiating with levofloxacin if worsening Chronic cor pulmonale -Continue Lasix 20 mg daily. -Heart healthy diet. Chronic pain -Continue daily medication regimen with MS Contin, lidocaine patches, and Neurontin. Obesity with BMI of 35 -Encourage follow-up with PCP for outpatient counseling on diet and nutrition with structured weight loss. 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 CODE STATUS: Full code DVT prophylaxis: Lovenox Discussed with: Patient Anticipated discharge date: Clinical course to be determined Anticipated discharge place Back to [facility]
[2021-01-19 11:47] LABS: Glucose,Whole Blood 187 mg/dL (75-99)
[2021-01-19] MEDS: REMDESIVIR 100 MG in SODIUM CHLORIDE 0.9% 250 ML IVPB SCH (12:49)
[2021-01-19] MEDS: FUROSEMIDE 10 MG/ML 4 ML VIAL IV SCH (14:53)
--- NOTE | 2021-01-19 15:30 | P.PN ---
Subjective Progress Note Date: 01/19/21 65-year-old female well-known to our service, with a history of severe COPD, who presents to the emergency department on January 15, at 10:30 AM, with complaints of shortness of breath. The patient was recently in the hospital between December 30 and January 05, with a COPD exacerbation. At that time, she tested negative for COVID 19. The patient states that since she got home, she has not been feeling well. The patient complains of worsening shortness of breath, chest tightness, cough, minimal phlegm production, and just overall weakness. Saturations are in the high 80s and low 90s on room air, and do increase into the low 90s, with O2. Currently she is on 5 L, and normally at home she is on 3 L. She has not been eating well she tells us, and just generally feeling weak and fatigued. She was brought in by EMS, and in route, did get some breathing treatments. She did test positive for COVID on this admission. White count 20.9, hemoglobin 9.9, hematocrit 31.3, and platelet count 231,000. PT INR and PTT were normal. D- dimer was 1.2. Sodium 133, potassium 4.2, chlorides 86, CO2 47, anion gap 0, BUN 14, and creatinine 0.55. The patient's LDH was 906, C-reactive protein 212, N-terminal proBNP 331, and pro-calcitonin 0.61. Chest x-ray showed some right lower lobe consolidation. CT angiogram was negative for pulmonary embolism, but did show some scattered infiltrates with large more focal consolidations in the right middle and lower lobe 01/17/2010 1 the patient is being seen for a follow-up. This patient is 65 with advanced COPD and the patient is also positive for Covid 19 related infection. Currently is on 5 L of oxygen by nasal cannula and she is typically on 3 L of o xygen at home. The patient is currently on Decadron 6 mg IV every 24 hours. The patient was also started on REM. Outpatient medications of been all resumed. The patient's white cell count was 11.6. She has chronic metabolic alkalosis. The d-dimer is at 1.28. LDH was 691 and CRP was 320. Chest x-ray was abnormal with bilateral pneumonia and the patient had a CT angios the chest that showed no evidence of any pulmonary embolism and it showed scattered infiltrates and more focal areas of consolidation in the right middle lobe and the lower lobe. Based on that, the patient was also started on broad-spectrum antibiotics and the patient is currently on IV Rocephin in addition. Home medic ation of been all resumed. Lovenox at 40 g subcu every 24 hours. The patient was last hospitalized in early December. At that time she was negative for Covid 19. Currently she is still on 5 L about 2 by nasal cannula. A chest x-ray showing peripheral infiltrates more so on the right typical of underlying Covid infection. She is feeling fatigued and tired. No worsening shortness of breath. The pro-calcitonin level was 0.61 and the patient is currently on antibiotics. Inflammatory markers have not been today 01/16/2021 on seeing the patient for a follow-up. The patient is currently on 4 L of Oxymizer by nasal cannula. The patient is currently being treated for COPD exacerbation and Covid 19 related pneumonia. The patient is currently on Decadron 6 mg IV every 24 hours. She is also on REM and she is on day #3. Overall, doing well. She is less bronchospastic and wheezy compared to yesterday. She is using the BiPAP at pressure of 10/5 overnight and currently is on 4 L. She is on Rocephin as a broad-spectrum antibiotic coverage. Note that she typically has oxygen at home at 3 L. In terms of her blood work, the patient has no inflammatory markers checked. Rest of the blood work is within normal limits for now. The plan is to send this patient to rehab. She has a BiPAP machine at home which I asked her to bring in For me to check and make appropriate adjustments to that she continue the same machine at the rehab facility. Today's evaluation of the 2020, the patient is doing well. The patient is on 5 L of oxygen by nasal cannula.. The patient is sitting up comfortably in bed. No complaints for now.. She feels that her breathing status is stable. She remains on 5 L of oxygen by nasal cannula. No chest pain. No palpitation. She has developed some increased lower extremity edema. The patient remains on Decadron 6 mg by mouth daily. The patient is also on REM. The patient is on day #4 of treatment. Overnight she is using a BiPAP at a pressure of 10/5 cm of water along with oxygen of 40%. The patient is also on Lovenox 40 mg subcu on a daily basis. No labs are available from today. She based on increased lower extremity edema, I change her to Lasix 40 mg IV every 24 hours. 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 Objective - Vital Signs Vital signs: Vital Signs Temp 98.5 F 01/19/21 09:43 Pulse 83 01/19/21 09:43 Resp 15 01/19/21 09:43 BP 154/76 01/19/21 09:43 Pulse Ox 89 L 01/19/21 09:43 Intake & Output 01/18/21 01/19/21 01/19/21 18:59 06:59 18:59 Intake Total 50 250 Output Total 1100 800 Balance -1050 -800 250 Intake: IV 250 Remdesivir 100 mg In 250 Sodium Chloride 0.9% 250 ml @ 250 mls/hr IVPB DAILY@1200 [facility] Rx#: [id number] Intake, IV Titration 50 Amount cefTRIAXone 2 gm In 50 Sodium Chloride 0.9% 50 ml @ 100 mls/hr IVPB Q24HR [facility] Rx#:[id number] Output: Urine 1100 800 Other: Voiding Method Indwelling Catheter Indwelling Catheter Indwelling Catheter - Exam Mild tachypnea, currently on 5L nasal cannula, with saturations of 91%. No audible wheezing, or use of accessory muscles. HEENT examination is grossly unremarkable. Mucous membranes are moist. No oral lesions. Neck supple. Full range of motion. No adenopathy thyromegaly or neck vein distention. Cardiovascular examination reveals regular rhythm rate. S1-S2 normal. No S3 or S4. No discernible murmur noted. Heart sounds are distant. . Lungs reveal bilateral coarse rhonchi. Bibasilar crackles appreciated. Mild expiratory wheezes are noted. Breath sounds are equal bilaterally but severely diminished throughout. Abdomen soft bowel sounds are heard. No masses or tenderness. Extremities are intact. No cyanosis clubbing or edema. Skin is without rash or lesion. Neurologic examination is brief but nonfocal. - Labs CBC & Chem 7: 01/19/21 06:02 01/19/21 06:02 Labs: Abnormal Lab Results - Last 24 Hours (Table) 01/18/21 01/18/21 01/19/21 Range/Units 16:21 20:09 06:02 RBC 3.37 L (4.10-5.20) X 10*6/uL Hgb 8.9 L (12.0-15.0) g/dL Hct 31.7 L (37.2-46.3) % MCH 26.4 L (27.0-32.0) pg MCHC 28.1 L (32.0-37.0) g/dL RDW 17.5 H (11.5-14.5) % Carbon Dioxide (21.6-31.8) mmol/L Creatinine (0.6-1.5) mg/dL BUN/Creatinine Ratio (12.00-20.00) Ratio POC Glucose (mg/dL) 244 H 261 H (75-99) mg/dL Calcium (8.7-10.3) mg/dL 01/19/21 01/19/21 01/19/21 Range/Units 06:02 07:12 11:37 RBC (4.10-5.20) X 10*6/uL Hgb (12.0-15.0) g/dL Hct (37.2-46.3) % MCH (27.0-32.0) pg MCHC (32.0-37.0) g/dL RDW (11.5-14.5) % Carbon Dioxide 39.0 H (21.6-31.8) mmol/L Creatinine 0.5 L (0.6-1.5) mg/dL BUN/Creatinine Ratio 42.00 H (12.00-20.00) Ratio POC Glucose (mg/dL) 105 H 187 H (75-99) mg/dL Calcium 8.4 L (8.7-10.3) mg/dL Microbiology - Last 24 Hours (Table) 01/15/21 12:11 Blood Culture - Preliminary Blood No Growth after 96 hours 01/15/21 12:16 Blood Culture - Preliminary Blood No Growth after 72 hours 01/16/21 09:37 Gram Stain - Final Sputum Sputum Culture - Final Corynebacterium species Assessment and Plan Plan: 1 Shortness of breath, multifactorial, in part related to her severe COPD, but also, secondary to COVID 19 pneumonia/pneumonitis. The patient is currently on 5 L by nasal cannula. The patient is being treated accordingly with Decadron and Remdesivir , day #4 clinically the patient is feeling better. She has developed some increased swelling in lower extremities bilaterally. Overnight, she is utilizing the BiPAP. 2 Recent hospitalization between December 30 and January 05, for a COPD exacerbation. 3 Chronic hypoxemic respiratory failure, currently on home O2 at 3 L. 4 History of deep venous thrombosis. 5 History of hypertension. 6 History of rheumatoid arthritis. 7 History of colitis. 8 Osteopenia/osteoporosis. 9 Chronic back pain. 10 History of restless leg syndrome. 11 History of vulvar cancer. 12 Previous history of bowel resection. 13 Multiple other medical problems and comorbidities. Plan This patient's home CPAP unit. Her treatment is been effective and she has been compliant. Continue utilizing BiPAP. The hospital at the same setting overnight Switch this patient on Lasix 40 mg IV every 24 hours Continue Decadron and REM day #4 Continue vitamin C and vitamin D and zinc supplements Lovenox for DVT prophylaxis Home medications of been all resumed Advanced lung disease with high risk of progression in regards to Covid ventilated pneumonia. We'll continue to follow.
[2021-01-19] MEDS: POTASSIUM CHLORIDE ER 10 MEQ TAB.ER.PRT PO SCH (17:04)
[2021-01-19] MEDS: MULTIVITAMINS, THERA 1 EACH TAB PO SCH (17:04)
[2021-01-19] MEDS: MAGNESIUM OXIDE 400 MG TAB PO SCH (17:04)
[2021-01-19 17:17] LABS: Glucose,Whole Blood 189 mg/dL (75-99)
[2021-01-19 20:36] LABS: Glucose,Whole Blood 253 mg/dL (75-99)
[2021-01-19] MEDS: MELATONIN 3 MG TABLET PO SCH (21:18)
[2021-01-19] MEDS: MONTELUKAST 10 MG TAB PO SCH (21:18)
[2021-01-20] MEDS: PANTOPRAZOLE 40 MG TABLET PO SCH (05:27)
[2021-01-20] MEDS: GABAPENTIN 100 MG CAP PO SCH ×3 (05:27→20:27)
[2021-01-20 07:19] LABS: Glucose,Whole Blood 125 mg/dL (75-99)
[2021-01-20] MEDS: INSULIN ASPART (NovoLOG) 100 UNIT/ML VIAL SQ SCH ×4 (07:29→20:24)
[2021-01-20] MEDS: ALBUTEROL HFA INHALER INHALATION PRN ×4 (08:52→20:39)
[2021-01-20] MEDS: FLUTICASONE 220 MCG INHALER INHALATION SCH ×2 (08:54→20:39)
[2021-01-20] MEDS: ZINC SULFATE 220 MG CAP PO SCH (09:11)
[2021-01-20] MEDS: VERAPAMIL 80 MG TAB PO SCH ×3 (09:11→17:19)
[2021-01-20] MEDS: MORPHINE SULFATE ER 15 MG TABLET PO SCH ×2 (09:11→20:25)
[2021-01-20] MEDS: LORATADINE 10 MG TAB PO SCH (09:11)
[2021-01-20] MEDS: DULoxetine HCL 30 MG CAPSULE.DR PO SCH (09:11)
[2021-01-20] MEDS: THEOPHYLLINE 24 HOUR 400 MG CAP.ER.24H PO SCH (09:11)
[2021-01-20] MEDS: ASCORBIC ACID 500 MG TAB PO SCH (09:11)
[2021-01-20] MEDS: FUROSEMIDE 10 MG/ML 4 ML VIAL IV SCH ×2 (09:13→20:24)
[2021-01-20] MEDS: NYSTATIN 100,000 UNIT/ML SUSP 500,000 UNIT/5 ML CUP PO SCH ×3 (09:13→17:19)
[2021-01-20] MEDS: LIDOCAINE 5% PATCH TOPICAL SCH (09:13)
[2021-01-20] MEDS: ENOXAPARIN 40 MG/0.4 ML SYRINGE SQ SCH (09:15)
[2021-01-20] MEDS: FLUTICASONE 50MCG/SPRAY NASAL 16GM EA NOSTRIL SCH (09:16)
[2021-01-20] MEDS: CHOLECALCIFEROL 25 MCG (1000 IU) TABLET PO SCH (09:16)
[2021-01-20] MEDS: MINERAL OIL-WHITE PETROLATUM 120 GM JAR TOPICAL SCH ×2 (09:17→20:28)
[2021-01-20] MEDS: dexAMETHasone 2 MG TAB PO SCH (09:17)
--- NOTE | 2021-01-20 11:36 | P.PN ---
Subjective Progress Note Date: 01/20/21 No new complaints today. Pt feels tired. Seen resting in bed with BIPAP. Objective - Vital Signs Vital signs: Vital Signs Temp 98.0 F 01/20/21 05:30 Pulse 93 01/20/21 05:30 Resp 18 01/20/21 05:30 BP 189/88 01/20/21 05:30 Pulse Ox 99 01/20/21 05:30 Intake & Output 01/19/21 01/20/21 01/20/21 18:59 06:59 18:59 Intake Total 250 Output Total 875 Balance 250 -875 Intake: IV 250 Remdesivir 100 mg In 250 Sodium Chloride 0.9% 250 ml @ 250 mls/hr IVPB DAILY@1200 [facility] Rx#: [id number] Output: Urine 875 Other: Voiding Method Indwelling Catheter Indwelling Catheter - Exam Gen: awake, alert HEENT: normocephalic, atraumatic, good hearing acuity, moist mucous membranes Resp: good air exchange, breathing comfortably with no accessory muscle use CVS: good distal perfusion x 4, GI: soft, NTTP, ND : no SPT, no CVAT, patterson catheter is not present MSK: no pitting edema, no clubbing Neuro: non-focal, moving all extremities Psych: cooperative, euthymic mood - Labs CBC & Chem 7: 01/19/21 06:02 01/19/21 06:02 Labs: Abnormal Lab Results - Last 24 Hours (Table) 01/19/21 01/19/21 01/19/21 Range/Units 11:37 17:08 20:34 POC Glucose (mg/dL) 187 H 189 H 253 H (75-99) mg/dL 01/20/21 Range/Units 07:17 POC Glucose (mg/dL) 125 H (75-99) mg/dL Microbiology - Last 24 Hours (Table) 01/15/21 12:16 Blood Culture - Preliminary Blood No Growth after 96 hours 01/15/21 12:11 Blood Culture - Preliminary Blood No Growth after 96 hours Assessment and Plan Assessment: Acute on chronic respiratory failure with hypoxia secondary to Covid 19 pneumonitis in addition to end-stage COPD -Covid test reported as positive on 01/15/21 -Chest x-ray revealing right lower lobe consolidation. -CTA negative for acute PE revealing scattered infiltrates with larger more focal consolidations in the right middle dependent lower lobe -Contact plus droplet precautions. -Pulmonology following, appreciate further recommendations -Remdesivir being administered, today is day 4 of 4 doses -Decadron 6 mg daily, today is day 6 of steroids. -Vitamin C, vitamin D, zinc, melatonin, and guaifenesin. -Continue oxygen, titrated as needed to maintain SpO2 equal to or greater than 90%. -MDIs as needed for increased shortness of breath and/or wheezing. -Theophylline -Sputum cultures = corynebacterium spp, pt was on ceftriaxone 01/16-01/18, abx d/c'd on 01/19, will trend clinical status and consider re-initiating with levofloxacin if worsening Chronic cor pulmonale -Continue Lasix 20 mg daily. -Heart healthy diet. Chronic pain -Continue daily medication regimen with MS Contin, lidocaine patches, and Neurontin. Obesity with BMI of 35 -Encourage follow-up with PCP for outpatient counseling on diet and nutrition with structured weight loss. 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 CODE STATUS: Full code DVT prophylaxis: Lovenox Discussed with: Patient Anticipated discharge date: Clinical course to be determined Anticipated discharge place Back to [facility]
[2021-01-20] MEDS: REMDESIVIR 100 MG in SODIUM CHLORIDE 0.9% 250 ML IVPB SCH (12:20)
[2021-01-20 12:35] LABS: Glucose,Whole Blood 112 mg/dL (75-99)
--- NOTE | 2021-01-20 14:45 | P.PN ---
Subjective Progress Note Date: 01/20/21 65-year-old female well-known to our service, with a history of severe COPD, who presents to the emergency department on January 15, at 10:30 AM, with complaints of shortness of breath. The patient was recently in the hospital between December 30 and January 05, with a COPD exacerbation. At that time, she tested negative for COVID 19. The patient states that since she got home, she has not been feeling well. The patient complains of worsening shortness of breath, chest tightness, cough, minimal phlegm production, and just overall weakness. Saturations are in the high 80s and low 90s on room air, and do increase into the low 90s, with O2. Currently she is on 5 L, and normally at home she is on 3 L. She has not been eating well she tells us, and just generally feeling weak and fatigued. She was brought in by EMS, and in route, did get some breathing treatments. She did test positive for COVID on this admission. White count 20.9, hemoglobin 9.9, hematocrit 31.3, and platelet count 231,000. PT INR and PTT were normal. D- dimer was 1.2. Sodium 133, potassium 4.2, chlorides 86, CO2 47, anion gap 0, BUN 14, and creatinine 0.55. The patient's LDH was 906, C-reactive protein 212, N-terminal proBNP 331, and pro-calcitonin 0.61. Chest x-ray showed some right lower lobe consolidation. CT angiogram was negative for pulmonary embolism, but did show some scattered infiltrates with large more focal consolidations in the right middle and lower lobe 01/17/2010 1 the patient is being seen for a follow-up. This patient is 65 with advanced COPD and the patient is also positive for Covid 19 related infection. Currently is on 5 L of oxygen by nasal cannula and she is typically on 3 L of o xygen at home. The patient is currently on Decadron 6 mg IV every 24 hours. The patient was also started on REM. Outpatient medications of been all resumed. The patient's white cell count was 11.6. She has chronic metabolic alkalosis. The d-dimer is at 1.28. LDH was 691 and CRP was 320. Chest x-ray was abnormal with bilateral pneumonia and the patient had a CT angios the chest that showed no evidence of any pulmonary embolism and it showed scattered infiltrates and more focal areas of consolidation in the right middle lobe and the lower lobe. Based on that, the patient was also started on broad-spectrum antibiotics and the patient is currently on IV Rocephin in addition. Home medic ation of been all resumed. Lovenox at 40 g subcu every 24 hours. The patient was last hospitalized in early December. At that time she was negative for Covid 19. Currently she is still on 5 L about 2 by nasal cannula. A chest x-ray showing peripheral infiltrates more so on the right typical of underlying Covid infection. She is feeling fatigued and tired. No worsening shortness of breath. The pro-calcitonin level was 0.61 and the patient is currently on antibiotics. Inflammatory markers have not been today 01/16/2021 on seeing the patient for a follow-up. The patient is currently on 4 L of Oxymizer by nasal cannula. The patient is currently being treated for COPD exacerbation and Covid 19 related pneumonia. The patient is currently on Decadron 6 mg IV every 24 hours. She is also on REM and she is on day #3. Overall, doing well. She is less bronchospastic and wheezy compared to yesterday. She is using the BiPAP at pressure of 10/5 overnight and currently is on 4 L. She is on Rocephin as a broad-spectrum antibiotic coverage. Note that she typically has oxygen at home at 3 L. In terms of her blood work, the patient has no inflammatory markers checked. Rest of the blood work is within normal limits for now. The plan is to send this patient to rehab. She has a BiPAP machine at home which I asked her to bring in For me to check and make appropriate adjustments to that she continue the same machine at the rehab facility. Today's evaluation of the 2020, the patient is doing well. The patient is on 5 L of oxygen by nasal cannula.. The patient is sitting up comfortably in bed. No complaints for now.. She feels that her breathing status is stable. She remains on 5 L of oxygen by nasal cannula. No chest pain. No palpitation. She has developed some increased lower extremity edema. The patient remains on Decadron 6 mg by mouth daily. The patient is also on REM. The patient is on day #4 of treatment. Overnight she is using a BiPAP at a pressure of 10/5 cm of water along with oxygen of 40%. The patient is also on Lovenox 40 mg subcu on a daily basis. No labs are available from today. She based on increased lower extremity edema, I change her to Lasix 40 mg IV every 24 hours. 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 On 01/20/2021, the patient is using oxygen alternating with BiPAP. She was on 5 L of oxygen earlier. She remains on Decadron 6 mg by mouth daily. She also on REM. She completed a total of 5 day course. Blood sugars are adequate and they're not elevated. She is afebrile. The inflammatory markers have not been checked in the last check was on 01/16/2021 LDH was nonelevated. I noted some increased swelling in lower extremities and the patient was started on Lasix 40 mg IV every 24 hours. She is producing adequate amount of urine output. She is utilizing the BiPAP on and off during the day. She is fatigued. She is looking into rehab. She is quite tired at this point in time. She is producing adequate amount of urine output. Adequate mentation. No chest pain. No change in her oxygenation for now. Objective - Vital Signs Vital signs: Vital Signs Temp 97.6 F 01/20/21 10:00 Pulse 96 01/20/21 10:00 Resp 16 01/20/21 10:00 BP 154/80 01/20/21 10:00 Pulse Ox 97 01/20/21 10:00 Intake & Output 01/19/21 01/20/21 01/20/21 18:59 06:59 18:59 Intake Total 250 Output Total 875 Balance 250 -875 Intake: IV 250 Remdesivir 100 mg In 250 Sodium Chloride 0.9% 250 ml @ 250 mls/hr IVPB DAILY@1200 [facility] Rx#: [id number] Output: Urine 875 Other: Voiding Method Indwelling Catheter Indwelling Catheter - Exam Mild tachypnea, currently on 5L nasal cannula, with saturations of 91%. No audible wheezing, or use of accessory muscles. HEENT examination is grossly unremarkable. Mucous membranes are moist. No oral lesions. Neck supple. Full range of motion. No adenopathy thyromegaly or neck vein distention. Cardiovascular examination reveals regular rhythm rate. S1-S2 normal. No S3 or S4. No discernible murmur noted. Heart sounds are distant. . Lungs reveal bilateral coarse rhonchi. Bibasilar crackles appreciated. Mild expiratory wheezes are noted. Breath sounds are equal bilaterally but severely diminished throughout. Abdomen soft bowel sounds are heard. No masses or tenderness. Extremities are intact. No cyanosis clubbing or edema. Skin is without rash or lesion. Neurologic examination is brief but nonfocal. - Labs CBC & Chem 7: 01/19/21 06:02 01/19/21 06:02 Labs: Abnormal Lab Results - Last 24 Hours (Table) 01/19/21 01/19/21 01/20/21 Range/Units 17:08 20:34 07:17 POC Glucose (mg/dL) 189 H 253 H 125 H (75-99) mg/dL 01/20/21 Range/Units 12:15 POC Glucose (mg/dL) 112 H (75-99) mg/dL Microbiology - Last 24 Hours (Table) 01/15/21 12:11 Blood Culture - Preliminary Blood No Growth after 120 hours 01/15/21 12:16 Blood Culture - Preliminary Blood No Growth after 96 hours Assessment and Plan Plan: 1 Shortness of breath, multifactorial, in part related to her severe COPD, but also, secondary to COVID 19 pneumonia/pneumonitis. The patient is currently on 5 L by nasal cannula. The patient is being treated accordingly with Decadron and Remdesivir , day #5 clinically the patient is feeling better. She has developed some increased swelling in lower extremities bilaterally. The patient is currently on IV Lasix. Overnight, she is utilizing the BiPAP. Overall condition pulmonary guaman is stable. 2 Recent hospitalization between December 30 and January 05, for a COPD exacerbation. 3 Chronic hypoxemic respiratory failure, currently on home O2 at 3 L. 4 History of deep venous thrombosis. 5 History of hypertension. 6 History of rheumatoid arthritis. 7 History of colitis. 8 Osteopenia/osteoporosis. 9 Chronic back pain. 10 History of restless leg syndrome. 11 History of vulvar cancer. 12 Previous history of bowel resection. 13 Multiple other medical problems and comorbidities. Plan Keep oxygen at 5 L and gradually wean it off and her baseline is at 3 L Continue utilizing BiPAP. The hospital at the same setting overnight Switch this patient on Lasix 40 mg IV every 12 hours Decadron and REM day #5, the patient will be completing a total of 5 day course of treatment Continue vitamin C and vitamin D and zinc supplements Lovenox for DVT prophylaxis Home medications of been all resumed Advanced lung disease with high risk of progression in regards to Covid ventilated pneumonia. Discharge planning is in progress and the patient is looking for going to [facility] We'll continue to follow.
[2021-01-20 16:39] LABS: Glucose,Whole Blood 243 mg/dL (75-99)
[2021-01-20] MEDS: MAGNESIUM OXIDE 400 MG TAB PO SCH (17:19)
[2021-01-20] MEDS: POTASSIUM CHLORIDE ER 10 MEQ TAB.ER.PRT PO SCH (17:19)
[2021-01-20] MEDS: MULTIVITAMINS, THERA 1 EACH TAB PO SCH (17:19)
[2021-01-20 20:14] LABS: Glucose,Whole Blood 244 mg/dL (75-99)
[2021-01-20] MEDS: MELATONIN 3 MG TABLET PO SCH (20:26)
[2021-01-20] MEDS: MONTELUKAST 10 MG TAB PO SCH (20:26)
[2021-01-20] MEDS ORDERED: hydrALAZINE HCL 25 MG TAB PO STA (22:59)
[2021-01-21] MEDS: GABAPENTIN 100 MG CAP PO SCH ×3 (06:19→20:06)
[2021-01-21] MEDS: PANTOPRAZOLE 40 MG TABLET PO SCH (06:19)
[2021-01-21 07:04] LABS: Glucose,Whole Blood 122 mg/dL (75-99)
[2021-01-21] MEDS: INSULIN ASPART (NovoLOG) 100 UNIT/ML VIAL SQ SCH ×3 (07:41→23:41)
--- NOTE | 2021-01-21 07:58 | XR ---
EXAMINATION TYPE: XR chest 1V portable DATE OF EXAM: 01/21/2021 HISTORY: Shortness of breath. COMPARISON: 01/18/2021 TECHNIQUE: Single view of the chest is submitted. FINDINGS: Demonstrated are scattered senescent parenchymal change. Patchy perihilar and basilar infiltrates persist with slight interval improvement suggested. The heart is stable. Hilar and mediastinal structures are within normal limits. Degenerative changes are seen of the dorsal spine. IMPRESSION: 1. Patchy perihilar and basilar infiltrates persist with slight interval improvement suggested.
[2021-01-21] MEDS: FLUTICASONE 220 MCG INHALER INHALATION SCH (08:43)
[2021-01-21] MEDS: ALBUTEROL HFA INHALER INHALATION PRN ×2 (08:43→20:33)
[2021-01-21] MEDS: ENOXAPARIN 40 MG/0.4 ML SYRINGE SQ SCH (08:52)
[2021-01-21] MEDS: CHOLECALCIFEROL 25 MCG (1000 IU) TABLET PO SCH (08:52)
[2021-01-21] MEDS: ASCORBIC ACID 500 MG TAB PO SCH (08:52)
[2021-01-21] MEDS: LORATADINE 10 MG TAB PO SCH (08:53)
[2021-01-21] MEDS: THEOPHYLLINE 24 HOUR 400 MG CAP.ER.24H PO SCH (08:53)
[2021-01-21] MEDS: dexAMETHasone 2 MG TAB PO SCH (08:53)
[2021-01-21] MEDS: DULoxetine HCL 30 MG CAPSULE.DR PO SCH (08:53)
[2021-01-21] MEDS: ZINC SULFATE 220 MG CAP PO SCH (08:53)
[2021-01-21] MEDS: VERAPAMIL 80 MG TAB PO SCH ×3 (08:53→14:45)
[2021-01-21] MEDS: MINERAL OIL-WHITE PETROLATUM 120 GM JAR TOPICAL SCH ×2 (08:54→20:29)
[2021-01-21] MEDS: LIDOCAINE 5% PATCH TOPICAL SCH (08:54)
[2021-01-21] MEDS ORDERED: NALOXONE 0.4 MG/ML 1 ML VIAL ONE ×2 (09:20→09:33)
[2021-01-21 09:23] LABS: Basophils # (A) 0.01 X 10*3/uL (0.00-0.10); Basophils % (A) 0.1 %; Eosinophils # (A) 0 X 10*3/uL (0.04-0.35); Eosinophils % (A) 0 %; HGB 9.9 g/dL (12.0-15.0); Lymphocytes # (A) 0.56 X 10*3/uL (0.90-5.00); Lymphocytes % (A) 5.7 %; MCH 26.5 pg (27.0-32.0); MCHC 29.1 g/dL (32.0-37.0); MCV 90.9 fL (80.0-97.0); Mean Platelet Volume 10.4 fL (9.5-12.2); Monocytes # (A) 0.45 X 10*3/uL (0.20-1.00); Monocytes % (A) 4.6 %; Neutrophils # (A) 8.72 X 10*3/uL (1.80-7.70); Neutrophils % (A) 88.9 %; Platelet Count 254 X 10*3/uL (140-440); RBC 3.74 X 10*6/uL (4.10-5.20); WBC 9.81 X 10*3/uL (4.50-10.00)
[2021-01-21 09:32] LABS: Glucose,Whole Blood 144 mg/dL (75-99)
[2021-01-21] MEDS ORDERED: LORazepam 2 MG/ML INJ ONE (09:47)
[2021-01-21 09:50] LABS: ABG Base Excess 10.1 mmol/L; ABG HCO3 38 mmol/L (21-25); ABG PO2 136 mmHg (83-108); ABG TCO2 41 mmol/L (19-24); Allen Test Performed? Yes
[2021-01-21 09:51] LABS: ABG PCO2 101 mmHg (35-45); ABG PH 7.19 (7.35-7.45)
[2021-01-21] MEDS: MORPHINE SULFATE ER 15 MG TABLET PO SCH ×2 (10:07→20:05)
[2021-01-21] MEDS ORDERED: METOPROLOL TARTRATE 5 MG/5 ML VIAL IVP ONE (10:10)
[2021-01-21 10:12] LABS: Glucose,Whole Blood 136 mg/dL (75-99)
[2021-01-21 10:14] LABS: INR 0.9 (<1.2); Partial Thromboplastin Time 23.9 sec (22.0-30.0); Prothrombin Time 9.9 sec (9.0-12.0)
[2021-01-21 10:17] LABS: African American GFR (CKD) 109.3 (60.0-200.0); BUN/Creat Ratio 46.67 Ratio (12.00-20.00); C Reactive Protein 2.9 mg/dL (0.0-0.8); Calcium 8.6 mg/dL (8.7-10.3); Carbon Dioxide >40.0 mmol/L (21.6-31.8); Chloride 89 mmol/L (96-109); Glucose 147 mg/dL (70-110); LDH 314 U/L (120-246); Non-African American GFR(CKD) 94.3 (60.0-200.0); Potassium 4.5 mmol/L (3.5-5.5); Sodium 142 mmol/L (135-145)
[2021-01-21] MEDS: NYSTATIN 100,000 UNIT/ML SUSP 500,000 UNIT/5 ML CUP PO SCH ×3 (10:30→14:45)
[2021-01-21] MEDS: FLUTICASONE 50MCG/SPRAY NASAL 16GM EA NOSTRIL SCH (10:31)
--- NOTE | 2021-01-21 10:50 | P.PN ---
Subjective Progress Note Date: 01/21/21 65-year-old female well-known to our service, with a history of severe COPD, who presents to the emergency department on January 15, at 10:30 AM, with complaints of shortness of breath. The patient was recently in the hospital between December 30 and January 05, with a COPD exacerbation. At that time, she tested negative for COVID 19. The patient states that since she got home, she has not been feeling well. The patient complains of worsening shortness of breath, chest tightness, cough, minimal phlegm production, and just overall weakness. Saturations are in the high 80s and low 90s on room air, and do increase into the low 90s, with O2. Currently she is on 5 L, and normally at home she is on 3 L. She has not been eating well she tells us, and just generally feeling weak and fatigued. She was brought in by EMS, and in route, did get some breathing treatments. She did test positive for COVID on this admission. White count 20.9, hemoglobin 9.9, hematocrit 31.3, and platelet count 231,000. PT INR and PTT were normal. D- dimer was 1.2. Sodium 133, potassium 4.2, chlorides 86, CO2 47, anion gap 0, BUN 14, and creatinine 0.55. The patient's LDH was 906, C-reactive protein 212, N-terminal proBNP 331, and pro-calcitonin 0.61. Chest x-ray showed some right lower lobe consolidation. CT angiogram was negative for pulmonary embolism, but did show some scattered infiltrates with large more focal consolidations in the right middle and lower lobe 01/17/2010 1 the patient is being seen for a follow-up. This patient is 65 with advanced COPD and the patient is also positive for Covid 19 related infection. Currently is on 5 L of oxygen by nasal cannula and she is typically on 3 L of o xygen at home. The patient is currently on Decadron 6 mg IV every 24 hours. The patient was also started on REM. Outpatient medications of been all resumed. The patient's white cell count was 11.6. She has chronic metabolic alkalosis. The d-dimer is at 1.28. LDH was 691 and CRP was 320. Chest x-ray was abnormal with bilateral pneumonia and the patient had a CT angios the chest that showed no evidence of any pulmonary embolism and it showed scattered infiltrates and more focal areas of consolidation in the right middle lobe and the lower lobe. Based on that, the patient was also started on broad-spectrum antibiotics and the patient is currently on IV Rocephin in addition. Home medic ation of been all resumed. Lovenox at 40 g subcu every 24 hours. The patient was last hospitalized in early December. At that time she was negative for Covid 19. Currently she is still on 5 L about 2 by nasal cannula. A chest x-ray showing peripheral infiltrates more so on the right typical of underlying Covid infection. She is feeling fatigued and tired. No worsening shortness of breath. The pro-calcitonin level was 0.61 and the patient is currently on antibiotics. Inflammatory markers have not been today 01/16/2021 on seeing the patient for a follow-up. The patient is currently on 4 L of Oxymizer by nasal cannula. The patient is currently being treated for COPD exacerbation and Covid 19 related pneumonia. The patient is currently on Decadron 6 mg IV every 24 hours. She is also on REM and she is on day #3. Overall, doing well. She is less bronchospastic and wheezy compared to yesterday. She is using the BiPAP at pressure of 10/5 overnight and currently is on 4 L. She is on Rocephin as a broad-spectrum antibiotic coverage. Note that she typically has oxygen at home at 3 L. In terms of her blood work, the patient has no inflammatory markers checked. Rest of the blood work is within normal limits for now. The plan is to send this patient to rehab. She has a BiPAP machine at home which I asked her to bring in For me to check and make appropriate adjustments to that she continue the same machine at the rehab facility. Today's evaluation of the 2020, the patient is doing well. The patient is on 5 L of oxygen by nasal cannula.. The patient is sitting up comfortably in bed. No complaints for now.. She feels that her breathing status is stable. She remains on 5 L of oxygen by nasal cannula. No chest pain. No palpitation. She has developed some increased lower extremity edema. The patient remains on Decadron 6 mg by mouth daily. The patient is also on REM. The patient is on day #4 of treatment. Overnight she is using a BiPAP at a pressure of 10/5 cm of water along with oxygen of 40%. The patient is also on Lovenox 40 mg subcu on a daily basis. No labs are available from today. She based on increased lower extremity edema, I change her to Lasix 40 mg IV every 24 hours. 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 On 01/20/2021, the patient is using oxygen alternating with BiPAP. She was on 5 L of oxygen earlier. She remains on Decadron 6 mg by mouth daily. She also on REM. She completed a total of 5 day course. Blood sugars are adequate and they're not elevated. She is afebrile. The inflammatory markers have not been checked in the last check was on 01/16/2021 LDH was nonelevated. I noted some increased swelling in lower extremities and the patient was started on Lasix 40 mg IV every 24 hours. She is producing adequate amount of urine output. She is utilizing the BiPAP on and off during the day. She is fatigued. She is looking into rehab. She is quite tired at this point in time. She is producing adequate amount of urine output. Adequate mentation. No chest pain. No change in her oxygenation for now. 01/21/2021, the patient got transferred to the intensive care unit. Apparently, the patient was doing well this morning and she was sitting up on a chair. She called the nurse and she told that she was feeling funny. Following that, she lost consciousness. She had some up rolling of her eyes. The [facility] a team was called to the scene. The patient's was given Narcan 0.42 and following that the patient had generalized tonic-clonic seizures. At that point, the patient was given Ativan a total of 4 mg IV. She became somnolent and lethargic and she was found to be significant respiratory distress. She got chest to the ICU. Currently she is on a BiPAP at a pressure of 16/5 with an FiO2 of 60%. The blood gases was done while BiPAP and the patient's pH was 7.19 with a pCO2 of 11 and pO2 136. The chest x-ray is not showing any acute abnormalities. This is consistent with COPD and is also consistent with Covid 19 related pneumonia. D-dimer today's at 1.1 with a normal coagulation profile. The patient's white cell count is at 9.8 with a hemoglobin of 5.9. Her serum bicarbonate is above 40. Her LDH level was 314 and a CRP level was down to 2.9 with a troponin of less than 0.01. Blood sugar this point is 136. The patient is lethargic And unresponsive at this point in time. He is on a BiPAP which is able to tolerate. She generated a tidal volume of 350 and her respiratory currently is around 15-20 with a minute ventilation of 11 L. The patient's appetite is at 60%. Obviously the current unresponsiveness is a combination of hypercapnic respiratory failure, drugs and post ictal state. We are not sure if the patient had any history of seizure activity or seizure disorder. We'll cons ult neurology. We'll start the patient on Keppra. Would order an EEG. Family has changed her CODE STATUS is DNR/DNI. Objective - Vital Signs Vital signs: Vital Signs Temp 98.9 F 01/20/21 22:00 Pulse 85 01/20/21 22:00 Resp 10 L 01/21/21 09:38 BP 184/75 01/20/21 22:00 Pulse Ox 95 01/20/21 22:00 Intake & Output 01/20/21 01/21/21 01/21/21 18:59 06:59 18:59 Output Total 1800 Balance -1800 Output: Urine 1800 Other: Voiding Method Indwelling Catheter - Exam Patient is currently unresponsive on a BiPAP full face mask and pressures of 16 /5 cm of water with an FiO2 of 60%. She is unresponsive. She is able to tolerate the BiPAP mask and she is running a minute ventilation of 5 L/m HEENT examination is grossly unremarkable. Mucous membranes are moist. No oral lesions. Neck supple. Full range of motion. No adenopathy thyromegaly or neck vein distention. Cardiovascular examination reveals regular rhythm rate. S1-S2 normal. No S3 or S4. No discernible murmur noted. Heart sounds are distant. . Lungs reveal bilateral coarse rhonchi. Bibasilar crackles appreciated. Mild expiratory wheezes are noted. Breath sounds are equal bilaterally but severely diminished throughout. Abdomen soft bowel sounds are heard. No masses or tenderness. Extremities are intact. No cyanosis clubbing and there is +1-2 pitting edema l ower extremities bilaterally. Skin is without rash or lesion. Neurologic examination is brief but nonfocal. - Labs CBC & Chem 7: 01/21/21 06:23 01/21/21 06:23 Labs: Abnormal Lab Results - Last 24 Hours (Table) 01/20/21 01/20/21 01/20/21 Range/Units 12:15 16:22 20:12 RBC (4.10-5.20) X 10*6/uL Hgb (12.0-15.0) g/dL Hct (37.2-46.3) % MCH (27.0-32.0) pg MCHC (32.0-37.0) g/dL RDW (11.5-14.5) % Immature Gran # (0.00-0.04) X 10*3/uL Neutrophils # (1.80-7.70) X 10*3/uL Lymphocytes # (0.90-5.00) X 10*3/uL Eosinophils # (0.04-0.35) X 10*3/uL D-Dimer (<0.60) mg/L FEU ABG pH (7.35-7.45) ABG pCO2 (35-45) mmHg ABG pO2 (83-108) mmHg ABG HCO3 (21-25) mmol/L ABG Total CO2 (19-24) mmol/L ABG O2 Saturation (94-97) % Chloride (96-109) mmol/L Carbon Dioxide (21.6-31.8) mmol/L BUN (9.0-27.0) mg/dL BUN/Creatinine Ratio (12.00-20.00) Ratio Glucose (70-110) mg/dL POC Glucose (mg/dL) 112 H 243 H 244 H (75-99) mg/dL Calcium (8.7-10.3) mg/dL Lactate Dehydrogenase (120-246) U/L C-Reactive Protein (0.0-0.8) mg/dL 01/21/21 01/21/21 01/21/21 Range/Units 06:23 06:23 06:23 RBC 3.74 L (4.10-5.20) X 10*6/uL Hgb 9.9 L (12.0-15.0) g/dL Hct 34.0 L (37.2-46.3) % MCH 26.5 L (27.0-32.0) pg MCHC 29.1 L (32.0-37.0) g/dL RDW 17.0 H (11.5-14.5) % Immature Gran # 0.07 H (0.00-0.04) X 10*3/uL Neutrophils # 8.72 H (1.80-7.70) X 10*3/uL Lymphocytes # 0.56 L (0.90-5.00) X 10*3/uL Eosinophils # 0 L (0.04-0.35) X 10*3/uL D-Dimer 1.31 H (<0.60) mg/L FEU ABG pH (7.35-7.45) ABG pCO2 (35-45) mmHg ABG pO2 (83-108) mmHg ABG HCO3 (21-25) mmol/L ABG Total CO2 (19-24) mmol/L ABG O2 Saturation (94-97) % Chloride 89 L (96-109) mmol/L Carbon Dioxide >40.0 H* (21.6-31.8) mmol/L BUN 28.0 H (9.0-27.0) mg/dL BUN/Creatinine Ratio 46.67 H (12.00-20.00) Ratio Glucose 147 H (70-110) mg/dL POC Glucose (mg/dL) (75-99) mg/dL Calcium 8.6 L (8.7-10.3) mg/dL Lactate Dehydrogenase 314 H (120-246) U/L C-Reactive Protein 2.9 H (0.0-0.8) mg/dL 01/21/21 01/21/21 01/21/21 Range/Units 06:57 09:12 09:42 RBC (4.10-5.20) X 10*6/uL Hgb (12.0-15.0) g/dL Hct (37.2-46.3) % MCH (27.0-32.0) pg MCHC (32.0-37.0) g/dL RDW (11.5-14.5) % Immature Gran # (0.00-0.04) X 10*3/uL Neutrophils # (1.80-7.70) X 10*3/uL Lymphocytes # (0.90-5.00) X 10*3/uL Eosinophils # (0.04-0.35) X 10*3/uL D-Dimer (<0.60) mg/L FEU ABG pH 7.19 L* (7.35-7.45) ABG pCO2 101 H* (35-45) mmHg ABG pO2 136 H (83-108) mmHg ABG HCO3 38 H (21-25) mmol/L ABG Total CO2 41 H (19-24) mmol/L ABG O2 Saturation 98.0 H (94-97) % Chloride (96-109) mmol/L Carbon Dioxide (21.6-31.8) mmol/L BUN (9.0-27.0) mg/dL BUN/Creatinine Ratio (12.00-20.00) Ratio Glucose (70-110) mg/dL POC Glucose (mg/dL) 122 H 144 H (75-99) mg/dL Calcium (8.7-10.3) mg/dL Lactate Dehydrogenase (120-246) U/L C-Reactive Protein (0.0-0.8) mg/dL 01/21/21 Range/Units 10:10 RBC (4.10-5.20) X 10*6/uL Hgb (12.0-15.0) g/dL Hct (37.2-46.3) % MCH (27.0-32.0) pg MCHC (32.0-37.0) g/dL RDW (11.5-14.5) % Immature Gran # (0.00-0.04) X 10*3/uL Neutrophils # (1.80-7.70) X 10*3/uL Lymphocytes # (0.90-5.00) X 10*3/uL Eosinophils # (0.04-0.35) X 10*3/uL D-Dimer (<0.60) mg/L FEU ABG pH (7.35-7.45) ABG pCO2 (35-45) mmHg ABG pO2 (83-108) mmHg ABG HCO3 (21-25) mmol/L ABG Total CO2 (19-24) mmol/L ABG O2 Saturation (94-97) % Chloride (96-109) mmol/L Carbon Dioxide (21.6-31.8) mmol/L BUN (9.0-27.0) mg/dL BUN/Creatinine Ratio (12.00-20.00) Ratio Glucose (70-110) mg/dL POC Glucose (mg/dL) 136 H (75-99) mg/dL Calcium (8.7-10.3) mg/dL Lactate Dehydrogenase (120-246) U/L C-Reactive Protein (0.0-0.8) mg/dL Microbiology - Last 24 Hours (Table) 01/15/21 12:16 Blood Culture - Preliminary Blood No Growth after 120 hours 01/15/21 12:11 Blood Culture - Preliminary Blood No Growth after 120 hours Assessment and Plan Plan: 1 Acute on chronic hypoxic and hypercapnic respiratory failure. The patient was initially hospitalized for COVID 19 related pneumonia and subsequently she had further decompensation Brester status due to a questionable seizure activity was witnessed this morning. At this point in time the patient is on BiPAP at a pressure of 16/5 cm of water. Chest x-ray is consistent with COVID related pneumonia and interstitial infiltrates. The patient is currently on a BiPAP. The patient is on BiPAP at a pressure of 16/5 cm of water and FiO2 of 60%. 2 acute alteration of the mental status, possible seizures. At this point the patient is unresponsive due to a combination of hypercapnic respiratory failure, medication and postictal state. 3 Covid 19 related pneumonia, inflammatory markers are normal including LDH and CRP currently on steroids. 3 severe COPD with chronic hypoxic and hypercapnic respiratory failure typically on oxygen 3 history of a nasal cannula 4 History of deep venous thrombosis. 5 History of hypertension. 6 History of rheumatoid arthritis. 7 History of colitis. 8 Osteopenia/osteoporosis. 9 Chronic back pain. 10 History of restless leg syndrome. 11 History of vulvar cancer. 12 Previous history of bowel resection. 13 Multiple other medical problems and comorbidities. Plan Continue BiPAP for now for the same setting follow-up blood gases Chest x-ray was noted The patient is a DNR/DNI CODE STATUS and for that reason she'll be kept on BiPAP and no intubation will be performed. This is upon the wishes of the family. Neurology consultation Start Keppra 1 g every 12 hours Continue Lasix 40 mg IV every 12 hours The patient IV Solu Medrol 60 mg every 6 hours regarding her COPD and the patient completed REM day #5, Continue vitamin C and vitamin D and zinc supplements Lovenox for DVT prophylaxis Condition is critical and prognosis poor based above-mentioned comorbidities. We'll insert arterial line for hemodynamic monitoring of blood pressure monitoring and blood gas monitoring We'll continue to follow. This is a critically care evaluation was done and more than 30 minutes, evaluation was done and more than 30 minutes. Prognosis poor based on above- mentioned comorbidities. Time with Patient: Greater than 30
[2021-01-21 11:41] LABS: ALT 25 U/L (4-34); AST 41 U/L (14-36); African American GFR (CKD) >90 (>60 ml/min/1.73 sqM); Albumin 3.5 g/dL (3.5-5.0); Albumin/Globulin Ratio 1.3; Alkaline Phosphatase 87 U/L (38-126); Anion Gap 11 mmol/L; Blood Urea Nitrogen 30 mg/dL (7-17); Calcium 9.2 mg/dL (8.4-10.2); Carbon Dioxide 40 mmol/L (22-30); Chloride 86 mmol/L (98-107); Globulin 2.6 g/dL; Glucose 139 mg/dL (74-99); Non-African American GFR(CKD) >90 (>60 ml/min/1.73 sqM); Potassium 4.3 mmol/L (3.5-5.1); Sodium 137 mmol/L (137-145); Total Bilirubin 0.6 mg/dL (0.2-1.3); Total Protein 6.1 g/dL (6.3-8.2)
--- NOTE | 2021-01-21 11:43 | P.PN ---
Subjective Progress Note Date: 01/21/21 Patient was seen during rounds, shortly after an A-team (rapid response) was called due to patient's altered mentation. During my initial evaluation, patient had been switched back to BIPAP, and did withdraw to pain in all 4 extremities, with intermittent following of commands, such as squeezing my hand. However, during my time with her, patient's mentation became much worse with less withdrawal to pain, and tonic-clonic seizures with foamnig in the mouth with bloody suction return. Patients vitals were afebrile, HTN to 210s/90s, tachycardic to 160s with irregular rhythm on heart monitor. Patient's medications were reviewed, and MS Contin was noted, therefore, patient rec'd IM narcan. Patient did not have IV access, which was established by PICC tech in left arm. After which, patient rec'd 5mg IV metoprolol and 4mg IV ativan, which improved her heart rates to 97-100 with sinus rhythm and PACs on monitor. EKG pending. ABG done at bedside demonstrated pH of 7.19, PCO2 of 101, PO2 of 132 on BIPAP, FiO2 60%, 10/5. Given seizure like activity, EEG was ordered, CTH was deferred until patient was stabilized. Patient moved to the ICU, and pulmonary made aware of change in status. I did speak with the family regarding change in status, and will place separate ACP note. Objective - Vital Signs Vital signs: Vital Signs Temp 98.9 F 01/20/21 22:00 Pulse 85 01/20/21 22:00 Resp 10 L 01/21/21 09:38 BP 184/75 01/20/21 22:00 Pulse Ox 95 01/20/21 22:00 Intake & Output 01/20/21 01/21/21 01/21/21 18:59 06:59 18:59 Output Total 1800 Balance -1800 Output: Urine 1800 Other: Voiding Method Indwelling Catheter - Exam Gen: obtunded, minimally responsive to commands HEENT: pupils equal without dolls' eyes. no eso/exotropia Resp: BiPAP: 10/5, FiO2 60%; symmetric chest expansion, prolonged expiratory phase CVS: good distal perfusion x 4 : no SPT, no CVAT, patterson catheter is present MSK: + bilateral pitting edema, no clubbing Neuro: withdraws to pain in all 4 extremities, muscle tone is appropriate in all 4 extremities, reflexes are hyporeflexic in lower extremities, appropriate in upper extremities, Babinski negative - Labs CBC & Chem 7: 01/21/21 06:23 01/21/21 06:23 Labs: Abnormal Lab Results - Last 24 Hours (Table) 01/20/21 01/20/21 01/20/21 Range/Units 12:15 16:22 20:12 RBC (4.10-5.20) X 10*6/uL Hgb (12.0-15.0) g/dL Hct (37.2-46.3) % MCH (27.0-32.0) pg MCHC (32.0-37.0) g/dL RDW (11.5-14.5) % Immature Gran # (0.00-0.04) X 10*3/uL Neutrophils # (1.80-7.70) X 10*3/uL Lymphocytes # (0.90-5.00) X 10*3/uL Eosinophils # (0.04-0.35) X 10*3/uL D-Dimer (<0.60) mg/L FEU ABG pH (7.35-7.45) ABG pCO2 (35-45) mmHg ABG pO2 (83-108) mmHg ABG HCO3 (21-25) mmol/L ABG Total CO2 (19-24) mmol/L ABG O2 Saturation (94-97) % Chloride (96-109) mmol/L Carbon Dioxide (21.6-31.8) mmol/L BUN (9.0-27.0) mg/dL BUN/Creatinine Ratio (12.00-20.00) Ratio Glucose (70-110) mg/dL POC Glucose (mg/dL) 112 H 243 H 244 H (75-99) mg/dL Calcium (8.7-10.3) mg/dL Lactate Dehydrogenase (120-246) U/L C-Reactive Protein (0.0-0.8) mg/dL 01/21/21 01/21/21 01/21/21 Range/Units 06:23 06:23 06:23 RBC 3.74 L (4.10-5.20) X 10*6/uL Hgb 9.9 L (12.0-15.0) g/dL Hct 34.0 L (37.2-46.3) % MCH 26.5 L (27.0-32.0) pg MCHC 29.1 L (32.0-37.0) g/dL RDW 17.0 H (11.5-14.5) % Immature Gran # 0.07 H (0.00-0.04) X 10*3/uL Neutrophils # 8.72 H (1.80-7.70) X 10*3/uL Lymphocytes # 0.56 L (0.90-5.00) X 10*3/uL Eosinophils # 0 L (0.04-0.35) X 10*3/uL D-Dimer 1.31 H (<0.60) mg/L FEU ABG pH (7.35-7.45) ABG pCO2 (35-45) mmHg ABG pO2 (83-108) mmHg ABG HCO3 (21-25) mmol/L ABG Total CO2 (19-24) mmol/L ABG O2 Saturation (94-97) % Chloride 89 L (96-109) mmol/L Carbon Dioxide >40.0 H* (21.6-31.8) mmol/L BUN 28.0 H (9.0-27.0) mg/dL BUN/Creatinine Ratio 46.67 H (12.00-20.00) Ratio Glucose 147 H (70-110) mg/dL POC Glucose (mg/dL) (75-99) mg/dL Calcium 8.6 L (8.7-10.3) mg/dL Lactate Dehydrogenase 314 H (120-246) U/L C-Reactive Protein 2.9 H (0.0-0.8) mg/dL 01/21/21 01/21/21 01/21/21 Range/Units 06:57 09:12 09:42 RBC (4.10-5.20) X 10*6/uL Hgb (12.0-15.0) g/dL Hct (37.2-46.3) % MCH (27.0-32.0) pg MCHC (32.0-37.0) g/dL RDW (11.5-14.5) % Immature Gran # (0.00-0.04) X 10*3/uL Neutrophils # (1.80-7.70) X 10*3/uL Lymphocytes # (0.90-5.00) X 10*3/uL Eosinophils # (0.04-0.35) X 10*3/uL D-Dimer (<0.60) mg/L FEU ABG pH 7.19 L* (7.35-7.45) ABG pCO2 101 H* (35-45) mmHg ABG pO2 136 H (83-108) mmHg ABG HCO3 38 H (21-25) mmol/L ABG Total CO2 41 H (19-24) mmol/L ABG O2 Saturation 98.0 H (94-97) % Chloride (96-109) mmol/L Carbon Dioxide (21.6-31.8) mmol/L BUN (9.0-27.0) mg/dL BUN/Creatinine Ratio (12.00-20.00) Ratio Glucose (70-110) mg/dL POC Glucose (mg/dL) 122 H 144 H (75-99) mg/dL Calcium (8.7-10.3) mg/dL Lactate Dehydrogenase (120-246) U/L C-Reactive Protein (0.0-0.8) mg/dL 01/21/21 Range/Units 10:10 RBC (4.10-5.20) X 10*6/uL Hgb (12.0-15.0) g/dL Hct (37.2-46.3) % MCH (27.0-32.0) pg MCHC (32.0-37.0) g/dL RDW (11.5-14.5) % Immature Gran # (0.00-0.04) X 10*3/uL Neutrophils # (1.80-7.70) X 10*3/uL Lymphocytes # (0.90-5.00) X 10*3/uL Eosinophils # (0.04-0.35) X 10*3/uL D-Dimer (<0.60) mg/L FEU ABG pH (7.35-7.45) ABG pCO2 (35-45) mmHg ABG pO2 (83-108) mmHg ABG HCO3 (21-25) mmol/L ABG Total CO2 (19-24) mmol/L ABG O2 Saturation (94-97) % Chloride (96-109) mmol/L Carbon Dioxide (21.6-31.8) mmol/L BUN (9.0-27.0) mg/dL BUN/Creatinine Ratio (12.00-20.00) Ratio Glucose (70-110) mg/dL POC Glucose (mg/dL) 136 H (75-99) mg/dL Calcium (8.7-10.3) mg/dL Lactate Dehydrogenase (120-246) U/L C-Reactive Protein (0.0-0.8) mg/dL Microbiology - Last 24 Hours (Table) 01/15/21 12:16 Blood Culture - Preliminary Blood No Growth after 120 hours 01/15/21 12:11 Blood Culture - Preliminary Blood No Growth after 120 hours Assessment and Plan Assessment: Acute on chronic respiratory failure with hypoxia secondary to Covid 19 pneumonitis Acute on Chronic Hypercarbic Respiratory Failure secondary to End-stage COPD Seizure-like Activity -Covid test reported as positive on 01/15/21 -Chest x-ray revealing right lower lobe consolidation. -CTA negative for acute PE revealing scattered infiltrates with larger more focal consolidations in the right middle dependent lower lobe -Contact plus droplet precautions. -01/21 AB.18, PCO2 101, PO2 132 Plan: -Patient transitioned to BiPAP 13/03, FiO2 60%, awaiting new blood gas with change in settings -MDIs as needed for increased shortness of breath and/or wheezing. -Theophylline level, pending -Sputum cultures = corynebacterium spp, pt was on ceftriaxone 01/16-01/18, abx d/c 'd on 01/19, - restarted levofloxacin 750mg daily on 01/21 -See ACP conversation dated 01/21 -EEG, pending -keppra BID -Neurology consult, pending -Pulmonology following, appreciate further recommendations -hold home ms contin -s/p ativan, metoprolol IV push once on 01/21 -s/p Remdes course, completed 01/20 -solumedrol 60 q6h, today is day 7 of steroids. -Vitamin C, vitamin D, zinc, melatonin, and guaifenesin. Chronic cor pulmonale -Continue Lasix 40mg IV BID -Heart healthy diet. Chronic pain -Continue daily medication regimen with lidocaine patches, and Neurontin. Obesity with BMI of 35 -Encourage follow-up with PCP for outpatient counseling on diet and nutrition with structured weight loss. 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 CODE STATUS: Full code DVT prophylaxis: Lovenox Discussed with: Patient Anticipated discharge date: Clinical course to be determined Anticipated discharge place: D I spent 80 minutes of critical care time today with this patient.
--- NOTE | 2021-01-21 11:53 | P.EN ---
ADVANCE CARE PLAN DOCUMENT - 01/21 I spoke with patient's sister and brother in regard's to patients clinical status as it relates to the following condition(s): Acute on Chronic Hypoxemic and Hypercarbic Respiratory Failure secondary to COVID and COPD Exacerbation I spent time going through patient's overall medical condition prior to hospitalization and then went into detail regarding the change in clinical status which led her to the ICU for above mentioned conditions. Patient's sister referred me to patient's brother, who is the NOK and DPOA. I described that the acuity of worsening clinical status may warrant the need for a breathing tube, CPR, and aggressive resusitation, however, given her overall medical condition, patient would not likely do well with these interventions. Patient's brother, Juventino, had agreed that patient was overall very sick and had low likelihood of surviving to lung transplantation should she ever be offered one, which has not been the case. Given overall situation, Juventino agrees that in patient's substituted judgment she would likely decline the following measures: Intubation, elective Tracheostomy PEG tube Chest compressions Defibrillation I did mention that patient still has treatment options at this time, including BIPAP support, anti-epileptics, and medications; per Juventino, it is unlikely that patient would seek comfort measures at this time for this reason, however, should patient require any of the above stated interventions, patient would likely opt for comfort care instead. I have changed the code status in the computer to reflect this conversation. I spent 16 minutes in total on the phone with Candace (pt's sister) and then with Juventino (patient's brother), but spoke to them separately. Candace deferred decision making to Juventino in my brief conversation with her. [id number] time was not possible during this pandemic.
[2021-01-21] MEDS: levETIRAcetam IV 1,000 MG in SALINE 1 100ML.BAG IVPB SCH ×2 (12:01→20:27)
[2021-01-21] MEDS: methylPREDNISolone SOD SUCCI 125 MG/2 ML VIAL IV SCH ×3 (12:28→23:40)
[2021-01-21] MEDS: FUROSEMIDE 10 MG/ML 4 ML VIAL IV SCH ×2 (12:28→19:23)
[2021-01-21] MEDS: LEVOFLOXACIN 750MG-D5W PMX 750 MG in DEXTROSE/WATER 1 150ML.BAG IVPB SCH (12:29)
--- NOTE | 2021-01-21 13:20 | CT ---
EXAMINATION TYPE: CT brain wo con DATE OF EXAM: 01/21/2021 COMPARISON: Seizure HISTORY: new onset seizure CT DLP: 1260.4 mGycm Automated exposure control for dose reduction was used. FINDINGS: Mild generalized degenerative change. No acute hemorrhage or mass effect. Low-attenuation within the periventricular white matter are nonspecific. Most typical remote white matter ischemia. IMPRESSION: DEGENERATIVE AND NONSPECIFIC WHITE MATTER CHANGES MOST TYPICAL OF REMOTE ISCHEMIA. NO ACUTE HEMORRHAG E. CONSIDER FOLLOW-UP MRI CLINICALLY WARRANTED.
[2021-01-21] MEDS: MULTIVITAMINS, THERA 1 EACH TAB PO SCH (14:45)
[2021-01-21] MEDS: POTASSIUM CHLORIDE ER 10 MEQ TAB.ER.PRT PO SCH (14:45)
[2021-01-21] MEDS: MAGNESIUM OXIDE 400 MG TAB PO SCH (14:45)
--- NOTE | 2021-01-21 17:30 | P.CNNES ---
History of Present Illness Consult date: 01/21/21 Requesting physician: Jose Elias Goodman Reason for Consult: AMS History of Present Illness: Patient is a 65-year-old female came to the hospital on 01/15/2021 at 10:30 AM by ambulance for an acute on chronic respiratory failure with hypoxia secondary to Covid 19 pneumonitis in addition to end-stage COPD. Patient also has cor pulmonale, obesity and history of tobacco use. Patient has rheumatoid arthritis. Patient this morning at 8:50 AM was initially sitting in bed watching television eating breakfast in talking. Patient was alert oriented to person place time and situation, calm and appropriate. Patient stated that I feel kind of funny", close her eyes and would no longer carry on a meaningful conversation or communicate.. Patient's oxygen saturation dropped to 81% on 5 L and O2 level fluctuated between 81-90% on BiPAP mask. Patient's blood pressure was 211/78. Heart rate 170s. Patient had a seizure-like activity in facial and bilateral arm twitching that occurred 3 times in a 5 minute period lasting 1.[address] head was done urgently, which revealed no acute process. No density in the major vessels or the basilar. Patient's blood test shows ABG with pH of 7.19, pCO2 101, pO2 136 and saturation 98%. Chem-7 shows normal electrolytes, renal functions, hepatic panel with AST 41, ALT 25. Patient was started on BiPAP. It was felt patient probably had a seizure from hypercarbia. Patient's repeat VBG showed pH of 7.43, much improved, pCO2 54, and HCO3 35. Patient's EKG previously showed sinus tachycardia. Patient is on DVT prophylaxis with Lovenox. Chest x-ray showed patchy perihilar and basilar infiltrates persist with slight interval improvement suggested. Even after improving VBG, patient's condition has not improved significantly. Review of Systems ROS unobtainable: due to mental status Past Medical History Past Medical History: Cancer, COPD, Deep Vein Thrombosis (DVT), Hypertension, Pneumonia, Rheumatoid Arthritis (RA) Additional Past Medical History / Comment(s): hearing difficulty currently, colitis, osteopenia, hx cancer of appendix, uses oxygen 2L continuous. chronic back pain, restless leg, recent admission for exacerbation of COPD. 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 Colonoscopy 2017. pain procedure at [facility] with Dr Ty. TAD with unilateral oophorectomy 1983. Partial vulvectomy in 2000. Past Anesthesia/Blood Transfusion Reactions: No Reported Reaction Additional Past Anesthesia/Blood Transfusion Reaction / Comment(s): states is not supposed to have general anesthesia R/T awaiting lung transplant Past Psychological History: ADD/ADHD, Anxiety Additional Psychological History / Comment(s): . Smoking Status: Former smoker Past Alcohol Use History: None Reported Additional Past Alcohol Use History / Comment(s): Pt. states she quit smoking in 1999. smoked 1-1 1/2 PPD, started smoking age 13. Past Drug Use History: None Reported Additional Drug Use History / Comment(s): Quit using Marijuana 04/2016. - Past Family History Father Family Medical History: Cancer, COPD Additional Family Medical History / Comment(s): COLON cancer Mother Family Medical History: Cancer Additional Family Medical History / Comment(s): ESOPHAGUS cancer Sister(s) Family Medical History: Cancer Additional Family Medical History / Comment(s): CERVICAL cancer Medications and Allergies Home Medications Medication Instructions Recorded Confirmed Type rOPINIRole HCL [Requip] 0.5 mg PO HS@2100 03/24/20 01/15/21 History Cholecalciferol [Vitamin D3 (25 25 mcg PO DAILY@0700 04/08/20 01/15/21 History Mcg = 1000 Iu)] Ipratropium-Albuterol Nebulize 3 ml INHALATION RT-Q4H 04/18/20 01/15/21 History [Duoneb 0.5 mg-3 mg/3 ml Soln] Montelukast [Singulair] 10 mg PO HS #30 tab 04/22/20 01/15/21 Rx Magnesium Oxide [Mag-Ox] 400 mg PO DAILY@1700 09/15/20 01/15/21 History Loratadine [Claritin] 10 mg PO DAILY@0800 10/11/20 01/15/21 History Melatonin 3 mg PO HS 10/11/20 01/15/21 History Acetaminophen Tab [Tylenol] 650 mg PO Q4H PRN 12/30/20 01/15/21 History Fluticasone Nasal Thorp [Flonase 1 spr EA NOSTRIL DAILY@0800 12/30/20 01/15/21 History Nasal Thorp] Multivitamins, Thera [Multivitamin 1 tab PO DAILY@1700 12/30/20 01/15/21 History (formulary)] Pantoprazole Sodium [Protonix] 40 mg PO DAILY@0600 12/30/20 01/15/21 History Potassium Chloride 8 meq PO DAILY@1700 12/30/20 01/15/21 History Sodium Chloride [White Horse] 2 spray EA NOSTRIL Q2H PRN 12/30/20 01/15/21 History Theophylline 24 Hour [Sekou-24] 400 mg PO DAILY@0800 12/30/20 01/15/21 History ALPRAZolam [Xanax] 0.25 mg PO TID PRN #10 tab 01/05/21 01/15/21 Rx Amoxic-Pot Clav 875-125Mg 1 tab PO Q12HR 7 Days #14 tab 01/05/21 01/15/21 Rx [Augmentin 875-125] Ipratropium-Albuterol Nebulize 3 ml INHALATION RT-QID PRN ml 01/05/21 01/15/21 Rx [Duoneb 0.5 mg-3 mg/3 ml Soln] guaiFENesin SYRUP 100MG/5ML 200 mg PO Q6H PRN ml 01/05/21 01/15/21 Rx [Robitussin] Budesonide [Pulmicort] 1 mg INHALATION RT-BID@0800,1700 01/15/21 01/15/21 History DULoxetine HCL [Cymbalta] 30 mg PO DAILY@0800 01/15/21 01/15/21 History Eucerin Cream 1 applic TOPICAL BID 01/15/21 01/15/21 History Furosemide [Lasix] 20 mg PO DIRECTED 01/15/21 01/15/21 History Furosemide [Lasix] 40 mg PO DIRECTED 01/15/21 01/15/21 History Gabapentin [Neurontin] 100 mg PO TID@0600,1400,2200 01/15/21 01/15/21 History Glucerna Shake 120 ml PO BID@0800,2100 01/15/21 01/15/21 History INSULIN ASPART (NovoLOG) [NovoLOG See Protocol SQ ACHS 01/15/21 01/15/21 History (formulary)] Lidocaine 5% Patch [Lidoderm] 1 patch TOPICAL DAILY 01/15/21 01/15/21 History Magnesium Hydroxide [Milk of 7,200 mg PO Q48H PRN 01/15/21 01/15/21 History Magnesia Concentrate] Morphine Sulfate [Ms Contin] 15 mg PO BID@0800,2100 01/15/21 01/15/21 History Na Phos,M-B/Na Phos,Di-Ba [Fleet 133 ml RECTAL DAILY PRN 01/15/21 01/15/21 History Adult] Nystatin 100,000 Unit/ml Susp 500,000 unit PO TID@0800,1200,1700 01/15/21 01/15/21 History [Mycostatin Oral Susp] Verapamil [Isoptin] 80 mg PO TID@0800,1200,1700 01/15/21 01/15/21 History bisacodyL [Bisacodyl] 10 mg RECTAL DAILY PRN 01/15/21 01/15/21 History predniSONE 5 mg PO DIRECTED 01/15/21 01/15/21 History predniSONE See Taper PO DIRECTED 01/15/21 01/15/21 History Allergies Allergy/AdvReac Type Severity Reaction Status Date / Time infliximab [From Remicade] Allergy Dyspnea/HIV Verified 01/15/21 10:45 ES propoxyphene [From Darvon] Allergy Rash/Hives Verified 01/15/21 10:45 adhesive tape AdvReac "is hard Verified 01/15/21 10:45 on skin" Physical Examination - Vital Signs Vital Signs: Vital Signs Temp Pulse Pulse Resp BP BP Pulse Ox 01/21/21 12:30 88 18 168/72 94 L 01/21/21 12:15 91 12 174/73 91 L 01/21/21 12:00 84 18 165/70 91 L 01/21/21 11:45 87 16 168/72 91 L 01/21/21 11:30 81 12 158/103 90 L 01/21/21 11:15 85 16 167/68 88 L 01/21/21 11:00 90 14 161/76 90 L 01/21/21 10:45 90 15 150/68 91 L 01/21/21 10:30 96 17 147/68 94 L 01/21/21 10:26 92 14 147/68 91 L 01/21/21 09:38 10 L 01/20/21 22:00 98.9 F 85 17 184/75 95 01/20/21 18:00 99.2 F 86 19 148/90 95 01/20/21 14:07 98.9 F 106 H 14 170/75 92 L Intake and Output 01/20/21 01/21/21 01/21/21 22:59 06:59 14:59 Output Total 1800 185 Balance -1800 -185 Output: Urine 1800 185 Other: Voiding Method Indwelling Catheter On examination patient is an elderly female, who is obtunded, lethargic. Her pupils are round and reacting to light. Visual guzman could not be tested. Oculocephalics are present. Patient has BiPAP on therefore face cannot be assessed. Patient is withdrawing only to painful stimuli. Reflexes are 1+ and plantars are possibly upgoing. Tone is equal bilaterally. No obvious seizure activity noted at this time. Cerebellar functions cannot be tested. Results - Laboratory Findings CBC and BMP: 01/22/21 04:28 01/22/21 04:28 Abnormal Lab Findings: Abnormal Labs 01/15/21 01/15/21 01/15/21 10:47 10:47 10:47 WBC 20.9 H RBC 3.54 L Hgb 9.9 L Hct 31.3 L MCH MCHC RDW 18.3 H Immature Gran # Neutrophils # 18.7 H Lymphocytes # Eosinophils # D-Dimer 1.12 H ABG pH ABG pCO2 ABG pO2 ABG HCO3 ABG Total CO2 ABG O2 Saturation Sodium 133 L Chloride 86 L Carbon Dioxide 47 H* BUN Creatinine BUN/Creatinine Ratio Glucose 118 H POC Glucose (mg/dL) Calcium AST Lactate Dehydrogenase 906 H Creatine Kinase <20 L C-Reactive Protein 211.7 H Total Protein 5.3 L Albumin 3.1 L Procalcitonin Urine Appearance Urine Blood Urine RBC Amorphous Sediment Urine Mucus 01/15/21 01/15/21 01/15/21 10:47 11:20 16:56 WBC RBC Hgb Hct MCH MCHC RDW Immature Gran # Neutrophils # Lymphocytes # Eosinophils # D-Dimer ABG pH ABG pCO2 ABG pO2 ABG HCO3 ABG Total CO2 ABG O2 Saturation Sodium Chloride Carbon Dioxide BUN Creatinine BUN/Creatinine Ratio Glucose POC Glucose (mg/dL) 122 H Calcium AST Lactate Dehydrogenase Creatine Kinase C-Reactive Protein Total Protein Albumin Procalcitonin 0.61 H Urine Appearance Cloudy H Urine Blood Small H Urine RBC 14 H Amorphous Sediment Rare H Urine Mucus Rare H 01/15/21 01/16/21 01/16/21 21:02 06:54 11:45 WBC RBC Hgb Hct MCH MCHC RDW Immature Gran # Neutrophils # Lymphocytes # Eosinophils # D-Dimer ABG pH ABG pCO2 ABG pO2 ABG HCO3 ABG Total CO2 ABG O2 Saturation Sodium Chloride Carbon Dioxide BUN Creatinine BUN/Creatinine Ratio Glucose POC Glucose (mg/dL) 164 H 107 H 135 H Calcium AST Lactate Dehydrogenase Creatine Kinase C-Reactive Protein Total Protein Albumin Procalcitonin Urine Appearance Urine Blood Urine RBC Amorphous Sediment Urine Mucus 01/16/21 01/16/21 01/16/21 16:38 16:51 16:51 WBC 11.6 H RBC 3.40 L Hgb 9.1 L Hct 30.0 L MCH MCHC 30.5 L RDW 17.8 H Immature Gran # Neutrophils # 10.4 H Lymphocytes # 0.4 L Eosinophils # D-Dimer 1.28 H ABG pH ABG pCO2 ABG pO2 ABG HCO3 ABG Total CO2 ABG O2 Saturation Sodium Chloride Carbon Dioxide BUN Creatinine BUN/Creatinine Ratio Glucose POC Glucose (mg/dL) 128 H Calcium AST Lactate Dehydrogenase Creatine Kinase C-Reactive Protein Total Protein Albumin Procalcitonin Urine Appearance Urine Blood Urine RBC Amorphous Sediment Urine Mucus 01/16/21 01/16/21 01/17/21 16:51 20:56 06:57 WBC RBC Hgb Hct MCH MCHC RDW Immature Gran # Neutrophils # Lymphocytes # Eosinophils # D-Dimer ABG pH ABG pCO2 ABG pO2 ABG HCO3 ABG Total CO2 ABG O2 Saturation Sodium 136 L Chloride 91 L Carbon Dioxide 42 H* BUN 21 H Creatinine BUN/Creatinine Ratio Glucose 126 H POC Glucose (mg/dL) 177 H 119 H Calcium AST Lactate Dehydrogenase 691 H Creatine Kinase C-Reactive Protein 320.0 H Total Protein Albumin Procalcitonin Urine Appearance Urine Blood Urine RBC Amorphous Sediment Urine Mucus 01/17/21 01/17/21 01/17/21 10:44 10:44 11:57 WBC 12.8 H RBC 3.53 L Hgb 9.6 L Hct 31.5 L MCH MCHC 30.5 L RDW 17.5 H Immature Gran # Neutrophils # Lymphocytes # Eosinophils # D-Dimer ABG pH ABG pCO2 ABG pO2 ABG HCO3 ABG Total CO2 ABG O2 Saturation Sodium Chloride 97 L Carbon Dioxide 39 H BUN 23 H Creatinine BUN/Creatinine Ratio Glucose 153 H POC Glucose (mg/dL) 113 H Calcium AST Lactate Dehydrogenase Creatine Kinase C-Reactive Protein Total Protein Albumin Procalcitonin Urine Appearance Urine Blood Urine RBC Amorphous Sediment Urine Mucus 01/17/21 01/17/21 01/18/21 16:53 20:07 06:45 WBC RBC 3.22 L Hgb 8.4 L Hct 30.8 L MCH 26.1 L MCHC 27.3 L RDW 17.8 H Immature Gran # Neutrophils # Lymphocytes # Eosinophils # D-Dimer ABG pH ABG pCO2 ABG pO2 ABG HCO3 ABG Total CO2 ABG O2 Saturation Sodium Chloride Carbon Dioxide BUN Creatinine BUN/Creatinine Ratio Glucose POC Glucose (mg/dL) 159 H 232 H Calcium AST Lactate Dehydrogenase Creatine Kinase C-Reactive Protein Total Protein Albumin Procalcitonin Urine Appearance Urine Blood Urine RBC Amorphous Sediment Urine Mucus 01/18/21 01/18/21 01/18/21 06:45 07:00 11:13 WBC RBC Hgb Hct MCH MCHC RDW Immature Gran # Neutrophils # Lymphocytes # Eosinophils # D-Dimer ABG pH ABG pCO2 ABG pO2 ABG HCO3 ABG Total CO2 ABG O2 Saturation Sodium Chloride Carbon Dioxide 37.4 H BUN Creatinine 0.5 L BUN/Creatinine Ratio 40.00 H Glucose 113 H POC Glucose (mg/dL) 115 H 121 H Calcium 8.3 L AST Lactate Dehydrogenase Creatine Kinase C-Reactive Protein Total Protein Albumin Procalcitonin Urine Appearance Urine Blood Urine RBC Amorphous Sediment Urine Mucus 01/18/21 01/18/21 01/19/21 16:21 20:09 06:02 WBC RBC 3.37 L Hgb 8.9 L Hct 31.7 L MCH 26.4 L MCHC 28.1 L RDW 17.5 H Immature Gran # Neutrophils # Lymphocytes # Eosinophils # D-Dimer ABG pH ABG pCO2 ABG pO2 ABG HCO3 ABG Total CO2 ABG O2 Saturation Sodium Chloride Carbon Dioxide BUN Creatinine BUN/Creatinine Ratio Glucose POC Glucose (mg/dL) 244 H 261 H Calcium AST Lactate Dehydrogenase Creatine Kinase C-Reactive Protein Total Protein Albumin Procalcitonin Urine Appearance Urine Blood Urine RBC Amorphous Sediment Urine Mucus 01/19/21 01/19/21 01/19/21 06:02 07:12 11:37 WBC RBC Hgb Hct MCH MCHC RDW Immature Gran # Neutrophils # Lymphocytes # Eosinophils # D-Dimer ABG pH ABG pCO2 ABG pO2 ABG HCO3 ABG Total CO2 ABG O2 Saturation Sodium Chloride Carbon Dioxide 39.0 H BUN Creatinine 0.5 L BUN/Creatinine Ratio 42.00 H Glucose POC Glucose (mg/dL) 105 H 187 H Calcium 8.4 L AST Lactate Dehydrogenase Creatine Kinase C-Reactive Protein Total Protein Albumin Procalcitonin Urine Appearance Urine Blood Urine RBC Amorphous Sediment Urine Mucus 01/19/21 01/19/21 01/20/21 17:08 20:34 07:17 WBC RBC Hgb Hct MCH MCHC RDW Immature Gran # Neutrophils # Lymphocytes # Eosinophils # D-Dimer ABG pH ABG pCO2 ABG pO2 ABG HCO3 ABG Total CO2 ABG O2 Saturation Sodium Chloride Carbon Dioxide BUN Creatinine BUN/Creatinine Ratio Glucose POC Glucose (mg/dL) 189 H 253 H 125 H Calcium AST Lactate Dehydrogenase Creatine Kinase C-Reactive Protein Total Protein Albumin Procalcitonin Urine Appearance Urine Blood Urine RBC Amorphous Sediment Urine Mucus 01/20/21 01/20/21 01/20/21 12:15 16:22 20:12 WBC RBC Hgb Hct MCH MCHC RDW Immature Gran # Neutrophils # Lymphocytes # Eosinophils # D-Dimer ABG pH ABG pCO2 ABG pO2 ABG HCO3 ABG Total CO2 ABG O2 Saturation Sodium Chloride Carbon Dioxide BUN Creatinine BUN/Creatinine Ratio Glucose POC Glucose (mg/dL) 112 H 243 H 244 H Calcium AST Lactate Dehydrogenase Creatine Kinase C-Reactive Protein Total Protein Albumin Procalcitonin Urine Appearance Urine Blood Urine RBC Amorphous Sediment Urine Mucus 01/21/21 01/21/21 01/21/21 06:23 06:23 06:23 WBC RBC 3.74 L Hgb 9.9 L Hct 34.0 L MCH 26.5 L MCHC 29.1 L RDW 17.0 H Immature Gran # 0.07 H Neutrophils # 8.72 H Lymphocytes # 0.56 L Eosinophils # 0 L D-Dimer 1.31 H ABG pH ABG pCO2 ABG pO2 ABG HCO3 ABG Total CO2 ABG O2 Saturation Sodium Chloride 89 L Carbon Dioxide >40.0 H* BUN 28.0 H Creatinine BUN/Creatinine Ratio 46.67 H Glucose 147 H POC Glucose (mg/dL) Calcium 8.6 L AST Lactate Dehydrogenase 314 H Creatine Kinase C-Reactive Protein 2.9 H Total Protein Albumin Procalcitonin Urine Appearance Urine Blood Urine RBC Amorphous Sediment Urine Mucus 01/21/21 01/21/21 01/21/21 06:57 09:12 09:42 WBC RBC Hgb Hct MCH MCHC RDW Immature Gran # Neutrophils # Lymphocytes # Eosinophils # D-Dimer ABG pH 7.19 L* ABG pCO2 101 H* ABG pO2 136 H ABG HCO3 38 H ABG Total CO2 41 H ABG O2 Saturation 98.0 H Sodium Chloride Carbon Dioxide BUN Creatinine BUN/Creatinine Ratio Glucose POC Glucose (mg/dL) 122 H 144 H Calcium AST Lactate Dehydrogenase Creatine Kinase C-Reactive Protein Total Protein Albumin Procalcitonin Urine Appearance Urine Blood Urine RBC Amorphous Sediment Urine Mucus 01/21/21 01/21/21 10:10 10:30 WBC RBC Hgb Hct MCH MCHC RDW Immature Gran # Neutrophils # Lymphocytes # Eosinophils # D-Dimer ABG pH ABG pCO2 ABG pO2 ABG HCO3 ABG Total CO2 ABG O2 Saturation Sodium Chloride 86 L Carbon Dioxide 40 H BUN 30 H Creatinine BUN/Creatinine Ratio Glucose 139 H POC Glucose (mg/dL) 136 H Calcium AST 41 H Lactate Dehydrogenase Creatine Kinase C-Reactive Protein Total Protein 6.1 L Albumin Procalcitonin Urine Appearance Urine Blood Urine RBC Amorphous Sediment Urine Mucus Assessment and Plan Assessment: * New onset seizure, possible due to hypercapnia, possible post ictal state. Probable underlying toxic metabolic encephalopathy. Computed tomography scan of head showed no acute process, no abnormal density in the major vessels. * Acute on chronic hypoxic and hypercapnic respiratory failure. PE also in the differential, but patient is on DVT prophylaxis. * Covid 19 pneumonia. Plan: * CT head showed no acute process. * Patient has been started on Keppra 1000 mg IV twice a day. * EEG cannot be completed because patient has to be on BiPAP. * As patient is not improving, we will check CTA of head and neck. * We will follow. Addendum: CTA of head and neck showed no stenosis, occlusion or aneurysm involving major cervical or intracranial vessels.
--- NOTE | 2021-01-21 18:34 | CT ---
EXAM: CTA HEAD AND NECK INDICATION: New onset seizure. COMPARISON: None available. TECHNIQUE: CTA of the head and neck were performed with multiplanar and MIP reformats generated and r eviewed. Stenosis evaluation is based on [place] Symptomatic Carotid Endarterectomy Trial ([facility]). 65 mL Isovue 370 intravenous contrast was administered. FINDINGS: There is moderate atherosclerosis of the aortic arch. Otherwise normal three-vessel branching of the aorta. There is no evidence of high-grade stenosis, dissection or aneurysm seen in the bilateral comm on carotid, cervical internal carotid and vertebral arteries. There is no evidence of high-grade stenosis, dissection or aneurysm in the intracranial internal bonilla tid arteries, anterior, middle and posterior cerebral arteries as well as in the imaged vertebral and basilar arteries. The communicating arteries are unremarkable. The partially visualized upper lungs demonstrate no moderate patchy opacities. IMPRESSION: No acute abnormality of the CTA head/neck or significant stenosis of the carotid arteries. Redemonstrated airspace disease.
[2021-01-21 18:41] LABS: Glucose,Whole Blood 164 mg/dL (75-99)
[2021-01-21] MEDS: MONTELUKAST 10 MG TAB PO SCH (20:05)
[2021-01-21] MEDS: MELATONIN 3 MG TABLET PO SCH (20:05)
[2021-01-21 21:52] LABS: Allen Test Performed? Yes
[2021-01-21 21:53] LABS: ABG Base Excess 24.5 mmol/L; ABG Oxygen Saturation 91.8 % (94-97); ABG PH 7.32 (7.35-7.45); ABG PO2 68 mmHg (83-108); ABG TCO2 54 mmol/L (19-24)
[2021-01-21 21:56] LABS: ABG PCO2 98 mmHg (35-45)
[2021-01-21 21:57] LABS: ABG HCO3 51 mmol/L (21-25)
[2021-01-21 23:33] LABS: Glucose,Whole Blood 160 mg/dL (75-99)
[2021-01-22] MEDS: ALBUTEROL HFA INHALER INHALATION PRN ×6 (00:43→20:04)
[2021-01-22] MEDS: GABAPENTIN 100 MG CAP PO SCH ×3 (04:11→22:02)
[2021-01-22 05:00] LABS: African American GFR (CKD) >90 (>60 ml/min/1.73 sqM); Blood Urea Nitrogen 28 mg/dL (7-17); Calcium 8.6 mg/dL (8.4-10.2); Chloride 85 mmol/L (98-107); Glucose 144 mg/dL (74-99); Non-African American GFR(CKD) >90 (>60 ml/min/1.73 sqM); Potassium 4.2 mmol/L (3.5-5.1); Sodium 135 mmol/L (137-145)
[2021-01-22 05:06] LABS: Anion Gap -2 mmol/L
[2021-01-22 05:13] LABS: Carbon Dioxide 52 mmol/L (22-30)
[2021-01-22] MEDS: PANTOPRAZOLE 40 MG TABLET PO SCH (05:42)
[2021-01-22] MEDS: methylPREDNISolone SOD SUCCI 125 MG/2 ML VIAL IV SCH ×3 (05:46→17:55)
[2021-01-22] MEDS: INSULIN ASPART (NovoLOG) 100 UNIT/ML VIAL SQ SCH ×3 (05:46→18:00)
[2021-01-22 05:47] LABS: Anisocytosis Slight; Basophils % (A) 0 %; Eosinophils % (A) 0 %; HCT 33.2 % (34.0-46.0); HGB 10.6 gm/dL (11.4-16.0); Hypochromasia Moderate; Lymphocytes # (A) 0.2 k/uL (1.0-4.8); Lymphocytes % (A) 3 %; MCH 27.4 pg (25.0-35.0); MCV 85.7 fL (80.0-100.0); Mean Platelet Volume 7.8; Monocytes # (A) 0.2 k/uL (0-1.0); Monocytes % (A) 3 %; Neutrophils # (A) 6.4 k/uL (1.3-7.7); Neutrophils % (A) 93 %; Platelet Count 268 k/uL (150-450); RBC 3.87 m/uL (3.80-5.40); RDW 17.4 % (11.5-15.5); WBC 6.8 k/uL (3.8-10.6)
--- NOTE | 2021-01-22 07:09 | XR ---
EXAMINATION TYPE: XR chest 1V portable DATE OF EXAM: 01/22/2021 COMPARISON: 01/21/2021 HISTORY: Shortness of breath TECHNIQUE: Single frontal view of the chest is obtained. FINDINGS: Scattered small bibasilar infiltrates seen on the prior study and essentially cleared in the interval . The technique is suboptimal but the lungs are essentially clear. There are no significant pleural e ffusions. There is no pneumothorax. The osseous structures are intact. IMPRESSION: Suboptimal technique but there is been interval improvement since the prior study. There is no eviden ce of acute cardiopulmonary disease.
[2021-01-22] MEDS: MORPHINE SULFATE ER 15 MG TABLET PO SCH ×2 (07:34→21:04)
[2021-01-22] MEDS: DULoxetine HCL 30 MG CAPSULE.DR PO SCH (07:34)
[2021-01-22] MEDS: THEOPHYLLINE 24 HOUR 400 MG CAP.ER.24H PO SCH (07:34)
[2021-01-22] MEDS: NYSTATIN 100,000 UNIT/ML SUSP 500,000 UNIT/5 ML CUP PO SCH ×3 (07:34→17:52)
[2021-01-22] MEDS: LORATADINE 10 MG TAB PO SCH (07:34)
[2021-01-22] MEDS: ZINC SULFATE 220 MG CAP PO SCH (07:35)
[2021-01-22] MEDS: VERAPAMIL 80 MG TAB PO SCH ×3 (07:35→17:52)
[2021-01-22] MEDS: CHOLECALCIFEROL 25 MCG (1000 IU) TABLET PO SCH (07:35)
[2021-01-22] MEDS: ASCORBIC ACID 500 MG TAB PO SCH (07:35)
--- NOTE | 2021-01-22 09:18 | P.PN ---
Subjective Progress Note Date: 01/22/21 65-year-old female well-known to our service, with a history of severe COPD, who presents to the emergency department on January 15, at 10:30 AM, with complaints of shortness of breath. The patient was recently in the hospital between December 30 and January 05, with a COPD exacerbation. At that time, she tested negative for COVID 19. The patient states that since she got home, she has not been feeling well. The patient complains of worsening shortness of breath, chest tightness, cough, minimal phlegm production, and just overall weakness. Saturations are in the high 80s and low 90s on room air, and do increase into the low 90s, with O2. Currently she is on 5 L, and normally at home she is on 3 L. She has not been eating well she tells us, and just generally feeling weak and fatigued. She was brought in by EMS, and in route, did get some breathing treatments. She did test positive for COVID on this admission. White count 20.9, hemoglobin 9.9, hematocrit 31.3, and platelet count 231,000. PT INR and PTT were normal. D- dimer was 1.2. Sodium 133, potassium 4.2, chlorides 86, CO2 47, anion gap 0, BUN 14, and creatinine 0.55. The patient's LDH was 906, C-reactive protein 212, N-terminal proBNP 331, and pro-calcitonin 0.61. Chest x-ray showed some right lower lobe consolidation. CT angiogram was negative for pulmonary embolism, but did show some scattered infiltrates with large more focal consolidations in the right middle and lower lobe 01/17/2010 1 the patient is being seen for a follow-up. This patient is 65 with advanced COPD and the patient is also positive for Covid 19 related infection. Currently is on 5 L of oxygen by nasal cannula and she is typically on 3 L of o xygen at home. The patient is currently on Decadron 6 mg IV every 24 hours. The patient was also started on REM. Outpatient medications of been all resumed. The patient's white cell count was 11.6. She has chronic metabolic alkalosis. The d-dimer is at 1.28. LDH was 691 and CRP was 320. Chest x-ray was abnormal with bilateral pneumonia and the patient had a CT angios the chest that showed no evidence of any pulmonary embolism and it showed scattered infiltrates and more focal areas of consolidation in the right middle lobe and the lower lobe. Based on that, the patient was also started on broad-spectrum antibiotics and the patient is currently on IV Rocephin in addition. Home medic ation of been all resumed. Lovenox at 40 g subcu every 24 hours. The patient was last hospitalized in early December. At that time she was negative for Covid 19. Currently she is still on 5 L about 2 by nasal cannula. A chest x-ray showing peripheral infiltrates more so on the right typical of underlying Covid infection. She is feeling fatigued and tired. No worsening shortness of breath. The pro-calcitonin level was 0.61 and the patient is currently on antibiotics. Inflammatory markers have not been today 01/16/2021 on seeing the patient for a follow-up. The patient is currently on 4 L of Oxymizer by nasal cannula. The patient is currently being treated for COPD exacerbation and Covid 19 related pneumonia. The patient is currently on Decadron 6 mg IV every 24 hours. She is also on REM and she is on day #3. Overall, doing well. She is less bronchospastic and wheezy compared to yesterday. She is using the BiPAP at pressure of 10/5 overnight and currently is on 4 L. She is on Rocephin as a broad-spectrum antibiotic coverage. Note that she typically has oxygen at home at 3 L. In terms of her blood work, the patient has no inflammatory markers checked. Rest of the blood work is within normal limits for now. The plan is to send this patient to rehab. She has a BiPAP machine at home which I asked her to bring in For me to check and make appropriate adjustments to that she continue the same machine at the rehab facility. Today's evaluation of the 2020, the patient is doing well. The patient is on 5 L of oxygen by nasal cannula.. The patient is sitting up comfortably in bed. No complaints for now.. She feels that her breathing status is stable. She remains on 5 L of oxygen by nasal cannula. No chest pain. No palpitation. She has developed some increased lower extremity edema. The patient remains on Decadron 6 mg by mouth daily. The patient is also on REM. The patient is on day #4 of treatment. Overnight she is using a BiPAP at a pressure of 10/5 cm of water along with oxygen of 40%. The patient is also on Lovenox 40 mg subcu on a daily basis. No labs are available from today. She based on increased lower extremity edema, I change her to Lasix 40 mg IV every 24 hours. She also brought her machine from home and the patient return to [employer] [facility] to have a APAP machine which is set at a minimum pressure of 5 and a massive pressure of 20 and a based on a 30 day supply sedated and restrained on the machine, the patient has been utilizing her machine effectively and her AHI was down to 1. On 01/20/2021, the patient is using oxygen alternating with BiPAP. She was on 5 L of oxygen earlier. She remains on Decadron 6 mg by mouth daily. She also on REM. She completed a total of 5 day course. Blood sugars are adequate and they're not elevated. She is afebrile. The inflammatory markers have not been checked in the last check was on 01/16/2021 LDH was nonelevated. I noted some increased swelling in lower extremities and the patient was started on Lasix 40 mg IV every 24 hours. She is producing adequate amount of urine output. She is utilizing the BiPAP on and off during the day. She is fatigued. She is looking into rehab. She is quite tired at this point in time. She is producing adequate amount of urine output. Adequate mentation. No chest pain. No change in her oxygenation for now. 01/21/2021, the patient got transferred to the intensive care unit. Apparently, the patient was doing well this morning and she was sitting up on a chair. She called the nurse and she told that she was feeling funny. Following that, she lost consciousness. She had some up rolling of her eyes. The [facility] team was called to the scene. The patient's was given Narcan 0.42 and following that the patient had generalized tonic-clonic seizures. At that point, the patient was given Ativan a total of 4 mg IV. She became somnolent and lethargic and she was found to be significant respiratory distress. She got chest to the ICU. Currently she is on a BiPAP at a pressure of 16/5 with an FiO2 of 60%. The blood gases was done while BiPAP and the patient's pH was 7.19 with a pCO2 of 11 and pO2 136. The chest x-ray is not showing any acute abnormalities. This is consistent with COPD and is also consistent with Covid 19 related pneumonia. D-dimer today's at 1.1 with a normal coagulation profile. The patient's white cell count is at 9.8 with a hemoglobin of 5.9. Her serum bicarbonate is above 40. Her LDH level was 314 and a CRP level was down to 2.9 with a troponin of less than 0.01. Blood sugar this point is 136. The patient is lethargic And unresponsive at this point in time. He is on a BiPAP which is able to tolerate. She generated a tidal volume of 350 and her respiratory currently is around 15-20 with a minute ventilation of 11 L. The patient's appetite is at 60%. Obviously the current unresponsiveness is a combination of hypercapnic respiratory failure, drugs and post ictal state. We are not sure if the patient had any history of seizure activity or seizure disorder. We'll cons ult neurology. We'll start the patient on Keppra. Would order an EEG. Family has changed her CODE STATUS is DNR/DNI. 01/22/2021, the patient is extremely lethargic but she is arousable. Upon stim ulation, was able to arouse her and I was able to obtain some reaction from her with she was following some simple commands. No seizure activity has been noted since yesterday the patient is still on IV Keppra. CT a of the brain was done yesterday and it showed no evidence of any carotid stenosis or any other significant findings. Neurology is on the case. EEG has not been performed. The patient is still on a BiPAP at a pressure of 16/5 cm of water and her FiO2 currently is at 60%. The blood gases were showing ongoing improvement in her acid base status. Follow-up blood gases will be needed today. The chest x-ray from today showed no major interval change or abnormalities. No worsening in her oxygenation status on the monitor. Serum bicarb is up to 52. We'll obtain a blood gas and likely benefit from Diamox and the patient was becoming alkalotic due to diuretics and she was getting Lasix 40 mg IV every 12 hours which was placed on hold taken in account that she is currently nothing by mouth and not receiving any IV fluids and probably somewhat dry. She continues to have some edema in lower extremities bilaterally. No other issues for now. Neurologist on the case. Neurologic exam is nonfocal. She has regained her level of alertness since yesterday and she seems to be much more interactive today. Her CODE STATUS is DNR/DNI. Objective - Vital Signs Vital signs: Vital Signs Temp 98.6 F 01/22/21 08:00 Pulse 93 01/22/21 09:00 Resp 19 01/22/21 09:00 BP 189/88 01/22/21 09:00 Pulse Ox 96 01/22/21 09:00 Intake & Output 01/21/21 01/22/21 01/22/21 18:59 06:59 18:59 Intake Total 250 100 10 Output Total 1910 564 60 Balance -1660 -464 -50 Weight 83.915 kg 85.9 kg Intake: IV 100 10 KVO 100 10 Intake, IV Titration 250 Amount Levofloxacin 750Mg-D5w 150 Pmx 750 mg In Dextrose/ Water 1 150ml.bag @ 100 mls/hr IVPB Q24H [facility] Rx#: [id number] levETIRAcetam IV 1,000 mg 100 In Saline 1 100ml.bag @ 400 mls/hr IVPB Q12HR [facility] Rx#:[id number] Oral 0 Output: Urine 1910 564 60 Other: Voiding Method Indwelling Catheter Indwelling Catheter # Bowel Movements 1 - Exam Patient is currently unresponsive on a BiPAP full face mask and pressures of 16/5 cm of water with an FiO2 of 60%. She is arousable. She is awake and up and no focal neurological deficit on today's evaluation. HEENT examination is grossly unremarkable. Mucous membranes are moist. No oral lesions. Neck supple. Full range of motion. No adenopathy thyromegaly or neck vein distention. Cardiovascular examination reveals regular rhythm rate. S1-S2 normal. No S3 or S4. No discernible murmur noted. Heart sounds are distant. . Lungs reveal bilateral coarse rhonchi. Bibasilar crackles appreciated. Mild expiratory wheezes are noted. Breath sounds are equal bilaterally but severely diminished throughout. Abdomen soft bowel sounds are heard. No masses or tenderness. Extremities are intact. No cyanosis clubbing and there is +1-2 pitting edema lower extremities bilaterally. Skin is without rash or lesion. Neurologic examination is brief but nonfocal. The patient is moving all 4 extremities to command. She is profoundly weak. She is able to follow some simple commands. Positive cough. Positive gag. Tubes are equal and reactive to light. No focal neurological deficits for now. She is quite synchronous with the BiPAP machine at this point in time. No agitation. - Labs CBC & Chem 7: 01/22/21 04:28 01/22/21 04:28 Labs: Abnormal Lab Results - Last 24 Hours (Table) 01/21/21 01/21/21 01/21/21 Range/Units 06:23 06:23 09:12 RBC 3.74 L (4.10-5.20) X 10*6/uL Hgb 9.9 L (12.0-15.0) g/dL Hct 34.0 L (37.2-46.3) % MCH 26.5 L (27.0-32.0) pg MCHC 29.1 L (32.0-37.0) g/dL RDW 17.0 H (11.5-14.5) % Immature Gran # 0.07 H (0.00-0.04) X 10*3/uL Neutrophils # 8.72 H (1.80-7.70) X 10*3/uL Lymphocytes # 0.56 L (0.90-5.00) X 10*3/uL Eosinophils # 0 L (0.04-0.35) X 10*3/uL ABG pH (7.35-7.45) ABG pCO2 (35-45) mmHg ABG pO2 (83-108) mmHg ABG HCO3 (21-25) mmol/L ABG Total CO2 (19-24) mmol/L ABG O2 Saturation (94-97) % Sodium (137-145) mmol/L Chloride 89 L (96-109) mmol/L Carbon Dioxide >40.0 H* (21.6-31.8) mmol/L BUN 28.0 H (9.0-27.0) mg/dL BUN/Creatinine Ratio 46.67 H (12.00-20.00) Ratio Glucose 147 H (70-110) mg/dL POC Glucose (mg/dL) 144 H (75-99) mg/dL Calcium 8.6 L (8.7-10.3) mg/dL AST (14-36) U/L Lactate Dehydrogenase 314 H (120-246) U/L C-Reactive Protein 2.9 H (0.0-0.8) mg/dL Total Protein (6.3-8.2) g/dL 01/21/21 01/21/21 01/21/21 Range/Units 09:42 10:10 10:30 RBC (4.10-5.20) X 10*6/uL Hgb (12.0-15.0) g/dL Hct (37.2-46.3) % MCH (27.0-32.0) pg MCHC (32.0-37.0) g/dL RDW (11.5-14.5) % Immature Gran # (0.00-0.04) X 10*3/uL Neutrophils # (1.80-7.70) X 10*3/uL Lymphocytes # (0.90-5.00) X 10*3/uL Eosinophils # (0.04-0.35) X 10*3/uL ABG pH 7.19 L* (7.35-7.45) ABG pCO2 101 H* (35-45) mmHg ABG pO2 136 H (83-108) mmHg ABG HCO3 38 H (21-25) mmol/L ABG Total CO2 41 H (19-24) mmol/L ABG O2 Saturation 98.0 H (94-97) % Sodium (137-145) mmol/L Chloride 86 L (96-109) mmol/L Carbon Dioxide 40 H (21.6-31.8) mmol/L BUN 30 H (9.0-27.0) mg/dL BUN/Creatinine Ratio (12.00-20.00) Ratio Glucose 139 H (70-110) mg/dL POC Glucose (mg/dL) 136 H (75-99) mg/dL Calcium (8.7-10.3) mg/dL AST 41 H (14-36) U/L Lactate Dehydrogenase (120-246) U/L C-Reactive Protein (0.0-0.8) mg/dL Total Protein 6.1 L (6.3-8.2) g/dL 01/21/21 01/21/21 01/21/21 Range/Units 13:20 18:30 23:32 RBC (4.10-5.20) X 10*6/uL Hgb (12.0-15.0) g/dL Hct (37.2-46.3) % MCH (27.0-32.0) pg MCHC (32.0-37.0) g/dL RDW (11.5-14.5) % Immature Gran # (0.00-0.04) X 10*3/uL Neutrophils # (1.80-7.70) X 10*3/uL Lymphocytes # (0.90-5.00) X 10*3/uL Eosinophils # (0.04-0.35) X 10*3/uL ABG pH 7.32 L (7.35-7.45) ABG pCO2 98 H* (35-45) mmHg ABG pO2 68 L (83-108) mmHg ABG HCO3 51 H* (21-25) mmol/L ABG Total CO2 54 H (19-24) mmol/L ABG O2 Saturation 91.8 L (94-97) % Sodium (137-145) mmol/L Chloride (96-109) mmol/L Carbon Dioxide (21.6-31.8) mmol/L BUN (9.0-27.0) mg/dL BUN/Creatinine Ratio (12.00-20.00) Ratio Glucose (70-110) mg/dL POC Glucose (mg/dL) 164 H 160 H (75-99) mg/dL Calcium (8.7-10.3) mg/dL AST (14-36) U/L Lactate Dehydrogenase (120-246) U/L C-Reactive Protein (0.0-0.8) mg/dL Total Protein (6.3-8.2) g/dL 01/22/21 01/22/21 Range/Units 04:28 04:28 RBC (4.10-5.20) X 10*6/uL Hgb 10.6 L (12.0-15.0) g/dL Hct 33.2 L (37.2-46.3) % MCH (27.0-32.0) pg MCHC (32.0-37.0) g/dL RDW 17.4 H (11.5-14.5) % Immature Gran # (0.00-0.04) X 10*3/uL Neutrophils # (1.80-7.70) X 10*3/uL Lymphocytes # 0.2 L (0.90-5.00) X 10*3/uL Eosinophils # (0.04-0.35) X 10*3/uL ABG pH (7.35-7.45) ABG pCO2 (35-45) mmHg ABG pO2 (83-108) mmHg ABG HCO3 (21-25) mmol/L ABG Total CO2 (19-24) mmol/L ABG O2 Saturation (94-97) % Sodium 135 L (137-145) mmol/L Chloride 85 L (96-109) mmol/L Carbon Dioxide 52 H* (21.6-31.8) mmol/L BUN 28 H (9.0-27.0) mg/dL BUN/Creatinine Ratio (12.00-20.00) Ratio Glucose 144 H (70-110) mg/dL POC Glucose (mg/dL) (75-99) mg/dL Calcium (8.7-10.3) mg/dL AST (14-36) U/L Lactate Dehydrogenase (120-246) U/L C-Reactive Protein (0.0-0.8) mg/dL Total Protein (6.3-8.2) g/dL Microbiology - Last 24 Hours (Table) 01/15/21 12:16 Blood Culture - Final Blood No Growth after 144 hours 01/15/21 12:11 Blood Culture - Final Blood No Growth after 144 hours Assessment and Plan Plan: 1 Acute on chronic hypoxic and hypercapnic respiratory failure. The patient was initially hospitalized for COVID 19 related pneumonia and subsequently she had further decompensation breathing status due to a questionable seizure activity was witnessed this morning. Note that the patient's acid base status is improved considerably. On today's evaluation, she was able to arouse and she was able to communicate in follow-up some simple commands. The follow-up blood gases will be done. Serum bicarbs up to 52 and she has developed significant metabolic alkalosis partly because of her diuresis. She remains on BiPAP for now. Blood gases pending. Chest x-ray findings are stable. She remains on IV Solu-Medrol 2 acute alteration of the mental status, possible seizures. Exercises is improved considerably. At this point the patient is unresponsive due to a combination of hypercapnic respiratory failure, medication and postictal state. The pCO2 level was improving and the patient is on IV Keppra. CT scan of the brain and CT angiogram of the brain showed no significant abnormalities. 3 Covid 19 related pneumonia, inflammatory markers are normal including LDH and CRP currently on steroids. 3 severe COPD with chronic hypoxic and hypercapnic respiratory failure typically on oxygen 3 history of a nasal cannula 4 History of deep venous thrombosis. 5 History of hypertension. 6 History of rheumatoid arthritis. 7 History of colitis. 8 Osteopenia/osteoporosis. 9 Chronic back pain. 10 History of restless leg syndrome. 11 History of vulvar cancer. 12 Previous history of bowel resection. 13 Multiple other medical problems and comorbidities. Plan Continue BiPAP for now for the same setting , awaiting the follow-up blood gas, consider oxygen by nasal cannula at a later stage, given Diamox 500 mg IV every 12 hours 2 doses. Chest x-ray was noted The patient is a DNR/DNI CODE STATUS and for that reason she'll be kept on BiPAP and no intubation will be performed. This is upon the wishes of the family. Neurology consultation Start Keppra 1 g every 12 hours Keep Lasix on hold The patient IV Solu Medrol 60 mg every 6 hours regarding her COPD and the patient completed REM treatment has been completed Continue vitamin C and vitamin D and zinc supplements Lovenox for DVT prophylaxis Condition is critical and prognosis poor based above-mentioned comorbidities. This is a critically care evaluation was done and more than 30 minutes, evaluation was done and more than 30 minutes. Prognosis poor based on above- mentioned comorbidities. Time with Patient: Greater than 30
[2021-01-22] MEDS: MINERAL OIL-WHITE PETROLATUM 120 GM JAR TOPICAL SCH ×2 (09:26→21:16)
[2021-01-22] MEDS: ENOXAPARIN 40 MG/0.4 ML SYRINGE SQ SCH (09:32)
[2021-01-22] MEDS: PANTOPRAZOLE 40 MG/10 ML VIAL IVP SCH (09:32)
[2021-01-22] MEDS: levETIRAcetam IV 1,000 MG in SALINE 1 100ML.BAG IVPB SCH (09:32)
[2021-01-22] MEDS: LIDOCAINE 5% PATCH TOPICAL SCH ×2 (09:33→09:55)
[2021-01-22] MEDS: hydrALAZINE HCL 20 MG/ML 1 ML VIAL IVP PRN ×2 (09:39→18:01)
[2021-01-22 09:49] LABS: ABG Base Excess 29.3 mmol/L; ABG Oxygen Saturation 94.7 % (94-97); ABG PH 7.46 (7.35-7.45); ABG PO2 71 mmHg (83-108); ABG TCO2 56 mmol/L (19-24); Allen Test Performed? Yes
[2021-01-22 09:50] LABS: ABG PCO2 75 mmHg (35-45)
[2021-01-22 09:51] LABS: ABG HCO3 53 mmol/L (21-25)
[2021-01-22] MEDS: FLUTICASONE 50MCG/SPRAY NASAL 16GM EA NOSTRIL SCH (11:37)
[2021-01-22 11:40] LABS: Glucose,Whole Blood 126 mg/dL (75-99)
[2021-01-22] MEDS: LEVOFLOXACIN 750MG-D5W PMX 750 MG in DEXTROSE/WATER 1 150ML.BAG IVPB SCH (11:53)
--- NOTE | 2021-01-22 15:33 | P.PN ---
Subjective Progress Note Date: 01/22/21 Patient was seen for a follow-up with tele-neurology. Patient still on BiPAP. Per nursing report, she did wake up, and was quite alert and awake. Patient somewhat generalized weak, but no focal weakness. Patient's ABG is improving. No new focal symptoms. Patient is much more alert and awake. Objective - Vital Signs Vital signs: Vital Signs Temp 98.6 F 01/22/21 08:00 Pulse 108 H 01/22/21 10:00 Resp 27 H 01/22/21 10:00 BP 171/82 01/22/21 10:00 Pulse Ox 97 01/22/21 10:00 Intake & Output 01/21/21 01/22/21 01/22/21 18:59 06:59 18:59 Intake Total 250 100 130 Output Total 1910 564 150 Balance -1660 -464 -20 Weight 83.915 kg 85.9 kg Intake: IV 100 30 KVO 100 30 Intake, IV Titration 250 100 Amount Levofloxacin 750Mg-D5w 150 Pmx 750 mg In Dextrose/ Water 1 150ml.bag @ 100 mls/hr IVPB Q24H [facility] Rx#: [id number] levETIRAcetam IV 1,000 mg 100 100 In Saline 1 100ml.bag @ 400 mls/hr IVPB Q12HR [facility] Rx#:[id number] Oral 0 Output: Urine 1910 564 150 Other: Voiding Method Indwelling Catheter Indwelling Catheter # Bowel Movements 1 - Exam Patient is laying comfortably in the bed. She has BiPAP on. Patient's pupils are round and reacting. Face appears symmetric. Patient moves her arms and legs equally. Detailed testing deferred. - Labs CBC & Chem 7: 01/22/21 04:28 01/22/21 04:28 Labs: Abnormal Lab Results - Last 24 Hours (Table) 01/21/21 01/21/21 01/21/21 Range/Units 06:23 10:30 13:20 Hgb (11.4-16.0) gm/dL Hct (34.0-46.0) % RDW (11.5-15.5) % Lymphocytes # (1.0-4.8) k/uL ABG pH 7.32 L (7.35-7.45) ABG pCO2 98 H* (35-45) mmHg ABG pO2 68 L (83-108) mmHg ABG HCO3 51 H* (21-25) mmol/L ABG Total CO2 54 H (19-24) mmol/L ABG O2 Saturation 91.8 L (94-97) % Sodium (137-145) mmol/L Chloride 89 L 86 L (96-109) mmol/L Carbon Dioxide >40.0 H* 40 H (21.6-31.8) mmol/L BUN 28.0 H 30 H (9.0-27.0) mg/dL BUN/Creatinine Ratio 46.67 H (12.00-20.00) Ratio Glucose 147 H 139 H (70-110) mg/dL POC Glucose (mg/dL) (75-99) mg/dL Calcium 8.6 L (8.7-10.3) mg/dL AST 41 H (14-36) U/L Lactate Dehydrogenase 314 H (120-246) U/L C-Reactive Protein 2.9 H (0.0-0.8) mg/dL Total Protein 6.1 L (6.3-8.2) g/dL 01/21/21 01/21/21 01/22/21 Range/Units 18:30 23:32 04:28 Hgb 10.6 L (11.4-16.0) gm/dL Hct 33.2 L (34.0-46.0) % RDW 17.4 H (11.5-15.5) % Lymphocytes # 0.2 L (1.0-4.8) k/uL ABG pH (7.35-7.45) ABG pCO2 (35-45) mmHg ABG pO2 (83-108) mmHg ABG HCO3 (21-25) mmol/L ABG Total CO2 (19-24) mmol/L ABG O2 Saturation (94-97) % Sodium (137-145) mmol/L Chloride (96-109) mmol/L Carbon Dioxide (21.6-31.8) mmol/L BUN (9.0-27.0) mg/dL BUN/Creatinine Ratio (12.00-20.00) Ratio Glucose (70-110) mg/dL POC Glucose (mg/dL) 164 H 160 H (75-99) mg/dL Calcium (8.7-10.3) mg/dL AST (14-36) U/L Lactate Dehydrogenase (120-246) U/L C-Reactive Protein (0.0-0.8) mg/dL Total Protein (6.3-8.2) g/dL 01/22/21 01/22/21 Range/Units 04:28 09:46 Hgb (11.4-16.0) gm/dL Hct (34.0-46.0) % RDW (11.5-15.5) % Lymphocytes # (1.0-4.8) k/uL ABG pH 7.46 H (7.35-7.45) ABG pCO2 75 H* (35-45) mmHg ABG pO2 71 L (83-108) mmHg ABG HCO3 53 H* (21-25) mmol/L ABG Total CO2 56 H (19-24) mmol/L ABG O2 Saturation (94-97) % Sodium 135 L (137-145) mmol/L Chloride 85 L (96-109) mmol/L Carbon Dioxide 52 H* (21.6-31.8) mmol/L BUN 28 H (9.0-27.0) mg/dL BUN/Creatinine Ratio (12.00-20.00) Ratio Glucose 144 H (70-110) mg/dL POC Glucose (mg/dL) (75-99) mg/dL Calcium (8.7-10.3) mg/dL AST (14-36) U/L Lactate Dehydrogenase (120-246) U/L C-Reactive Protein (0.0-0.8) mg/dL Total Protein (6.3-8.2) g/dL Microbiology - Last 24 Hours (Table) 01/15/21 12:16 Blood Culture - Final Blood No Growth after 144 hours 01/15/21 12:11 Blood Culture - Final Blood No Growth after 144 hours Assessment and Plan Assessment: * New onset seizure, possible due to hypercapnia, possible post ictal state. Probable underlying toxic metabolic encephalopathy. Computed tomography scan of head showed no acute process, no abnormal density in the major vessels. * Acute on chronic hypoxic and hypercapnic respiratory failure. * Covid 19 pneumonia. Plan: * Patient has improved mentally, talking better, and moving all 4 extremities. Exam is limited because of significant breathing difficulty on BiPAP. * CT head showed no acute process. * CTA of head and neck showed no stenosis, occlusion or aneurysm involving major cervical or intracranial vessels. * Continue Keppra 1000 mg IV twice a day, until EEG is complete. If no epileptiform, then may consider decreasing the dose of Keppra. * EEG cannot be completed until patient has to stay on BiPAP. * Medical management as per IM/critical care.
--- NOTE | 2021-01-22 15:47 | P.PN ---
Subjective Progress Note Date: 01/22/21 Principal diagnosis: covid PNA Patient has been doing better today compared to yesterday as per nursing staff. She is still requiring BiPAP. No overnight events. No more seizure activity. No fevers or chills. Objective - Vital Signs Vital signs: Vital Signs Temp 98.6 F 01/22/21 12:00 Pulse 111 H 01/22/21 15:00 Resp 25 H 01/22/21 15:00 BP 158/79 01/22/21 15:00 Pulse Ox 97 01/22/21 15:00 Intake & Output 01/21/21 01/22/21 01/22/21 18:59 06:59 18:59 Intake Total 250 100 270 Output Total 1910 564 825 Balance -6588 -686 -188 Weight 83.915 kg 85.9 kg Intake: IV 100 170 KVO 100 170 Intake, IV Titration 250 100 Amount Levofloxacin 750Mg-D5w 150 Pmx 750 mg In Dextrose/ Water 1 150ml.bag @ 100 mls/hr IVPB Q24H [facility] Rx#: [id number] levETIRAcetam IV 1,000 mg 100 100 In Saline 1 100ml.bag @ 400 mls/hr IVPB Q12HR [facility] Rx#:[id number] Oral 0 Output: Urine 1910 564 825 Other: Voiding Method Indwelling Catheter Indwelling Catheter Indwelling Catheter # Bowel Movements 1 - Exam Gen: More alert and oriented compared to yesterday's exam. HEENT: PERRL Resp: BiPAP: 10/5, FiO2 60%; symmetric chest expansion, prolonged expiratory phase. Bilateral wheezing and rhonchi. CVS: good distal perfusion x 4 : no SPT, no CVAT, patterson catheter is present MSK: + bilateral pitting edema, no clubbing Neuro: Alert and oriented 3, moving all extremities. - Labs CBC & Chem 7: 01/22/21 04:28 01/22/21 04:28 Labs: Abnormal Lab Results - Last 24 Hours (Table) 01/21/21 01/21/21 01/21/21 Range/Units 13:20 18:30 23:32 Hgb (11.4-16.0) gm/dL Hct (34.0-46.0) % RDW (11.5-15.5) % Lymphocytes # (1.0-4.8) k/uL ABG pH 7.32 L (7.35-7.45) ABG pCO2 98 H* (35-45) mmHg ABG pO2 68 L (83-108) mmHg ABG HCO3 51 H* (21-25) mmol/L ABG Total CO2 54 H (19-24) mmol/L ABG O2 Saturation 91.8 L (94-97) % Sodium (137-145) mmol/L Chloride (98-107) mmol/L Carbon Dioxide (22-30) mmol/L BUN (7-17) mg/dL Glucose (74-99) mg/dL POC Glucose (mg/dL) 164 H 160 H (75-99) mg/dL 01/22/21 01/22/21 01/22/21 Range/Units 04:28 04:28 09:46 Hgb 10.6 L (11.4-16.0) gm/dL Hct 33.2 L (34.0-46.0) % RDW 17.4 H (11.5-15.5) % Lymphocytes # 0.2 L (1.0-4.8) k/uL ABG pH 7.46 H (7.35-7.45) ABG pCO2 75 H* (35-45) mmHg ABG pO2 71 L (83-108) mmHg ABG HCO3 53 H* (21-25) mmol/L ABG Total CO2 56 H (19-24) mmol/L ABG O2 Saturation (94-97) % Sodium 135 L (137-145) mmol/L Chloride 85 L (98-107) mmol/L Carbon Dioxide 52 H* (22-30) mmol/L BUN 28 H (7-17) mg/dL Glucose 144 H (74-99) mg/dL POC Glucose (mg/dL) (75-99) mg/dL 01/22/21 Range/Units 11:38 Hgb (11.4-16.0) gm/dL Hct (34.0-46.0) % RDW (11.5-15.5) % Lymphocytes # (1.0-4.8) k/uL ABG pH (7.35-7.45) ABG pCO2 (35-45) mmHg ABG pO2 (83-108) mmHg ABG HCO3 (21-25) mmol/L ABG Total CO2 (19-24) mmol/L ABG O2 Saturation (94-97) % Sodium (137-145) mmol/L Chloride (98-107) mmol/L Carbon Dioxide (22-30) mmol/L BUN (7-17) mg/dL Glucose (74-99) mg/dL POC Glucose (mg/dL) 126 H (75-99) mg/dL Microbiology - Last 24 Hours (Table) 01/15/21 12:16 Blood Culture - Final Blood No Growth after 144 hours 01/15/21 12:11 Blood Culture - Final Blood No Growth after 144 hours Assessment and Plan Plan: Acute on chronic respiratory failure with hypoxia secondary to Covid 19 pneumonitis Acute on Chronic Hypercarbic Respiratory Failure secondary to End-stage COPD -Covid test reported as positive on 01/15/21 -Chest x-ray revealing right lower lobe consolidation. -CTA negative for acute PE revealing scattered infiltrates with larger more focal consolidations in the right middle dependent lower lobe -Contact plus droplet precautions. -01/21 AB.18, PCO2 101, PO2 132 -Continue BiPAP 16/5, FiO2 60%, -MDIs as needed for increased shortness of breath and/or wheezing. -Continue levofloxacin 750mg daily, started on 01/21 -s/p Remdes course, completed 01/20 -solumedrol 60 q6h, today is day 7 of steroids. -Vitamin C, vitamin D, zinc, melatonin, and guaifenesin. -Pulmonology following, appreciate further recommendations Seizure-like Activity -Seen by neurology -EEG, pending -keppra BID started Chronic cor pulmonale -Continue Lasix 40mg IV BID -Heart healthy diet. Chronic pain -Continue daily medication regimen with lidocaine patches, and Neurontin. Obesity with BMI of 35 -Encourage follow-up with PCP for outpatient counseling on diet and nutrition with structured weight loss. 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 CODE STATUS: Full code DVT prophylaxis: Lovenox Discussed with: Patient Anticipated discharge date: Clinical course to be determined Anticipated discharge place: TBD I spent 35 minutes of critical care time today with this patient.
--- NOTE | 2021-01-22 17:00 | P.PCN ---
Date of Procedure: 01/22/21 Preoperative Diagnosis: Acute respiratory failure, hypoxic, Covid 19 pneumonia Postoperative Diagnosis: same Procedure(s) Performed: central line insertion Anesthesia: local Surgeon: Jose Elias Goodman Estimated Blood Loss (ml): 0 Pathology: none sent Condition: critical Disposition: ICU Operative Findings: Indication: Hemodynamic monitoring/Intravenous access. A time-out was completed verifying correct patient, procedure, site, positioning, and implant(s) or special equipment if applicable. The patient was placed in a dependent position appropriate for central line placement based on the vein to be cannulated. The patients right groin was prepped and draped in sterile fashion. 1% Lidocaine was used to anesthetize the surrounding skin area. A triple lumen 9F Cordis catheter was introduced into the common femoral] vein using Seldinger technique. The catheter was threaded smoothly over the guide wire and appropriate blood return was obtained. Each lumen of the catheter was evacuated of air and flushed with sterile saline. The catheter was then sutured in place to the skin and a sterile dressing applied. Perfusion to the extremity distal to the point of catheter insertion was checked and found to be adequate. The patient tolerated the procedure well and there were no complications.
[2021-01-22] MEDS: POTASSIUM CHLORIDE ER 10 MEQ TAB.ER.PRT PO SCH (17:52)
[2021-01-22] MEDS: MULTIVITAMINS, THERA 1 EACH TAB PO SCH (17:52)
[2021-01-22] MEDS: MAGNESIUM OXIDE 400 MG TAB PO SCH (17:52)
[2021-01-22 17:59] LABS: Glucose,Whole Blood 116 mg/dL (75-99)
[2021-01-22] MEDS: MELATONIN 3 MG TABLET PO SCH (21:04)
[2021-01-22] MEDS: MONTELUKAST 10 MG TAB PO SCH (21:04)
[2021-01-22] MEDS: levETIRAcetam IV 750 MG in SODIUM CHLORIDE 0.9% 100 ML IVPB SCH (21:13)
[2021-01-22 23:58] LABS: Glucose,Whole Blood 179 mg/dL (75-99)
[2021-01-23] MEDS: INSULIN ASPART (NovoLOG) 100 UNIT/ML VIAL SQ SCH ×4 (00:03→16:51)
[2021-01-23] MEDS: methylPREDNISolone SOD SUCCI 125 MG/2 ML VIAL IV SCH ×4 (00:06→16:51)
[2021-01-23] MEDS: ALBUTEROL HFA INHALER INHALATION PRN ×3 (00:39→07:54)
[2021-01-23] MEDS: hydrALAZINE HCL 20 MG/ML 1 ML VIAL IVP PRN ×2 (02:14→21:53)
[2021-01-23 05:55] LABS: Anisocytosis Slight; Basophils % (A) 0 %; Eosinophils % (A) 0 %; HCT 35.2 % (34.0-46.0); HGB 11.3 gm/dL (11.4-16.0); Hypochromasia Moderate; Lymphocytes # (A) 0.4 k/uL (1.0-4.8); Lymphocytes % (A) 3 %; MCH 27.3 pg (25.0-35.0); MCHC 32.2 g/dL (31.0-37.0); Mean Platelet Volume 7.6; Monocytes # (A) 0.6 k/uL (0-1.0); Monocytes % (A) 4 %; Neutrophils # (A) 13.3 k/uL (1.3-7.7); Neutrophils % (A) 92 %; Platelet Count 385 k/uL (150-450); RBC 4.14 m/uL (3.80-5.40); RDW 17.8 % (11.5-15.5); WBC 14.4 k/uL (3.8-10.6)
[2021-01-23 05:58] LABS: Glucose,Whole Blood 156 mg/dL (75-99)
[2021-01-23] MEDS: GABAPENTIN 100 MG CAP PO SCH ×3 (06:02→20:43)
[2021-01-23 06:07] LABS: Potassium 3.8 mmol/L (3.5-5.1)
--- NOTE | 2021-01-23 07:31 | XR ---
EXAMINATION TYPE: XR chest 1V portable DATE OF EXAM: 01/23/2021 HISTORY: Shortness of breath. COMPARISON: 01/22/2021 TECHNIQUE: Single view of the chest is submitted. FINDINGS: Demonstrated are scattered senescent parenchymal change. Increased markings at the lung bases may reflect atelectasis or underlying infiltrate. The heart is stable. Hilar and mediastinal structures are within normal limits. Degenerative changes are seen of the dorsal spine. IMPRESSION: 1. Increased markings at the lung bases may reflect atelectasis or underlying infiltrate.
[2021-01-23] MEDS: CHOLECALCIFEROL 25 MCG (1000 IU) TABLET PO SCH (07:34)
[2021-01-23] MEDS: DULoxetine HCL 30 MG CAPSULE.DR PO SCH (07:34)
[2021-01-23] MEDS: ASCORBIC ACID 500 MG TAB PO SCH (07:34)
[2021-01-23] MEDS: LORATADINE 10 MG TAB PO SCH (07:34)
[2021-01-23] MEDS: ENOXAPARIN 40 MG/0.4 ML SYRINGE SQ SCH (07:55)
[2021-01-23] MEDS: MORPHINE SULFATE ER 15 MG TABLET PO SCH ×2 (07:56→20:43)
[2021-01-23] MEDS: PANTOPRAZOLE 40 MG/10 ML VIAL IVP SCH (07:56)
[2021-01-23] MEDS: LIDOCAINE 5% PATCH TOPICAL SCH (07:59)
[2021-01-23] MEDS: VERAPAMIL 80 MG TAB PO SCH ×3 (08:01→16:51)
[2021-01-23] MEDS: NYSTATIN 100,000 UNIT/ML SUSP 500,000 UNIT/5 ML CUP PO SCH ×3 (08:01→16:51)
[2021-01-23] MEDS: MINERAL OIL-WHITE PETROLATUM 120 GM JAR TOPICAL SCH ×2 (08:08→20:44)
[2021-01-23] MEDS: FLUTICASONE 50MCG/SPRAY NASAL 16GM EA NOSTRIL SCH (08:08)
[2021-01-23] MEDS: ZINC SULFATE 220 MG CAP PO SCH (08:09)
[2021-01-23] MEDS: THEOPHYLLINE 24 HOUR 400 MG CAP.ER.24H PO SCH ×2 (08:26→12:12)
[2021-01-23] MEDS: levETIRAcetam IV 750 MG in SODIUM CHLORIDE 0.9% 100 ML IVPB SCH ×2 (08:26→20:44)
--- NOTE | 2021-01-23 09:31 | P.PN ---
Subjective Progress Note Date: 01/23/21 65-year-old female well-known to our service, with a history of severe COPD, who presents to the emergency department on January 15, at 10:30 AM, with complaints of shortness of breath. The patient was recently in the hospital between December 30 and January 05, with a COPD exacerbation. At that time, she tested negative for COVID 19. The patient states that since she got home, she has not been feeling well. The patient complains of worsening shortness of breath, chest tightness, cough, minimal phlegm production, and just overall weakness. Saturations are in the high 80s and low 90s on room air, and do increase into the low 90s, with O2. Currently she is on 5 L, and normally at home she is on 3 L. She has not been eating well she tells us, and just generally feeling weak and fatigued. She was brought in by EMS, and in route, did get some breathing treatments. She did test positive for COVID on this admission. White count 20.9, hemoglobin 9.9, hematocrit 31.3, and platelet count 231,000. PT INR and PTT were normal. D- dimer was 1.2. Sodium 133, potassium 4.2, chlorides 86, CO2 47, anion gap 0, BUN 14, and creatinine 0.55. The patient's LDH was 906, C-reactive protein 212, N-terminal proBNP 331, and pro-calcitonin 0.61. Chest x-ray showed some right lower lobe consolidation. CT angiogram was negative for pulmonary embolism, but did show some scattered infiltrates with large more focal consolidations in the right middle and lower lobe 01/17/2010 1 the patient is being seen for a follow-up. This patient is 65 with advanced COPD and the patient is also positive for Covid 19 related infection. Currently is on 5 L of oxygen by nasal cannula and she is typically on 3 L of o xygen at home. The patient is currently on Decadron 6 mg IV every 24 hours. The patient was also started on REM. Outpatient medications of been all resumed. The patient's white cell count was 11.6. She has chronic metabolic alkalosis. The d-dimer is at 1.28. LDH was 691 and CRP was 320. Chest x-ray was abnormal with bilateral pneumonia and the patient had a CT angios the chest that showed no evidence of any pulmonary embolism and it showed scattered infiltrates and more focal areas of consolidation in the right middle lobe and the lower lobe. Based on that, the patient was also started on broad-spectrum antibiotics and the patient is currently on IV Rocephin in addition. Home medic ation of been all resumed. Lovenox at 40 g subcu every 24 hours. The patient was last hospitalized in early December. At that time she was negative for Covid 19. Currently she is still on 5 L about 2 by nasal cannula. A chest x-ray showing peripheral infiltrates more so on the right typical of underlying Covid infection. She is feeling fatigued and tired. No worsening shortness of breath. The pro-calcitonin level was 0.61 and the patient is currently on antibiotics. Inflammatory markers have not been today 01/16/2021 on seeing the patient for a follow-up. The patient is currently on 4 L of Oxymizer by nasal cannula. The patient is currently being treated for COPD exacerbation and Covid 19 related pneumonia. The patient is currently on Decadron 6 mg IV every 24 hours. She is also on REM and she is on day #3. Overall, doing well. She is less bronchospastic and wheezy compared to yesterday. She is using the BiPAP at pressure of 10/5 overnight and currently is on 4 L. She is on Rocephin as a broad-spectrum antibiotic coverage. Note that she typically has oxygen at home at 3 L. In terms of her blood work, the patient has no inflammatory markers checked. Rest of the blood work is within normal limits for now. The plan is to send this patient to rehab. She has a BiPAP machine at home which I asked her to bring in For me to check and make appropriate adjustments to that she continue the same machine at the rehab facility. Today's evaluation of the 2020, the patient is doing well. The patient is on 5 L of oxygen by nasal cannula.. The patient is sitting up comfortably in bed. No complaints for now.. She feels that her breathing status is stable. She remains on 5 L of oxygen by nasal cannula. No chest pain. No palpitation. She has developed some increased lower extremity edema. The patient remains on Decadron 6 mg by mouth daily. The patient is also on REM. The patient is on day #4 of treatment. Overnight she is using a BiPAP at a pressure of 10/5 cm of water along with oxygen of 40%. The patient is also on Lovenox 40 mg subcu on a daily basis. No labs are available from today. She based on increased lower extremity edema, I change her to Lasix 40 mg IV every 24 hours. She also brought her machine from home and the patient wrap turner to have a APAP machine which is set at a minimum pressure of 5 and a massive pressure of 20 and a based on a 30 day supply sedated and restrained on the machine, the patient has been utilizing her machine effectively and her AHI was down to 1. On 01/20/2021, the patient is using oxygen alternating with BiPAP. She was on 5 L of oxygen earlier. She remains on Decadron 6 mg by mouth daily. She also on REM. She completed a total of 5 day course. Blood sugars are adequate and they're not elevated. She is afebrile. The inflammatory markers have not been checked in the last check was on 01/16/2021 LDH was nonelevated. I noted some increased swelling in lower extremities and the patient was started on Lasix 40 mg IV every 24 hours. She is producing adequate amount of urine output. She is utilizing the BiPAP on and off during the day. She is fatigued. She is looking into rehab. She is quite tired at this point in time. She is producing adequate amount of urine output. Adequate mentation. No chest pain. No change in her oxygenation for now. 01/21/2021, the patient got transferred to the intensive care unit. Apparently, the patient was doing well this morning and she was sitting up on a chair. She called the nurse and she told that she was feeling funny. Following that, she lost consciousness. She had some up rolling of her eyes. The [facility] team was called to the scene. The patient's was given Narcan 0.42 and following that the patient had generalized tonic-clonic seizures. At that point, the patient was given Ativan a total of 4 mg IV. She became somnolent and lethargic and she was found to be significant respiratory distress. She got chest to the ICU. Currently she is on a BiPAP at a pressure of 16/5 with an FiO2 of 60%. The blood gases was done while BiPAP and the patient's pH was 7.19 with a pCO2 of 11 and pO2 136. The chest x-ray is not showing any acute abnormalities. This is consistent with COPD and is also consistent with Covid 19 related pneumonia. D-dimer today's at 1.1 with a normal coagulation profile. The patient's white cell count is at 9.8 with a hemoglobin of 5.9. Her serum bicarbonate is above 40. Her LDH level was 314 and a CRP level was down to 2.9 with a troponin of less than 0.01. Blood sugar this point is 136. The patient is lethargic And unresponsive at this point in time. He is on a BiPAP which is able to tolerate. She generated a tidal volume of 350 and her respiratory currently is around 15-20 with a minute ventilation of 11 L. The patient's appetite is at 60%. Obviously the current unresponsiveness is a combination of hypercapnic respiratory failure, drugs and post ictal state. We are not sure if the patient had any history of seizure activity or seizure disorder. We'll cons ult neurology. We'll start the patient on Keppra. Would order an EEG. Family has changed her CODE STATUS is DNR/DNI. 01/22/2021, the patient is extremely lethargic but she is arousable. Upon stim ulation, was able to arouse her and I was able to obtain some reaction from her with she was following some simple commands. No seizure activity has been noted since yesterday the patient is still on IV Keppra. CT a of the brain was done yesterday and it showed no evidence of any carotid stenosis or any other significant findings. Neurology is on the case. EEG has not been performed. The patient is still on a BiPAP at a pressure of 16/5 cm of water and her FiO2 currently is at 60%. The blood gases were showing ongoing improvement in her acid base status. Follow-up blood gases will be needed today. The chest x-ray from today showed no major interval change or abnormalities. No worsening in her oxygenation status on the monitor. Serum bicarb is up to 52. We'll obtain a blood gas and likely benefit from Diamox and the patient was becoming alkalotic due to diuretics and she was getting Lasix 40 mg IV every 12 hours which was placed on hold taken in account that she is currently nothing by mouth and not receiving any IV fluids and probably somewhat dry. She continues to have some edema in lower extremities bilaterally. No other issues for now. Neurologist on the case. Neurologic exam is nonfocal. She has regained her level of alertness since yesterday and she seems to be much more interactive today. Her CODE STATUS is DNR/DNI. On 01/23/2021, the patient is awake but confused. The patient is verbal. She is communicating. She has no focal neurological deficit. She has not had any seizure activity since yesterday. She remains on IV Keppra. Neurology is also on the case. She is moving all 4 extremities. She is however confused without any limitation. She was on BiPAP throughout the day yesterday and the pressures of 16/5 and currently she is on 10 L of oxygen high flow with a pulse ox of 97% and a low The gradually weaned off. She remains on steroids. Diuretics were restarted yesterday and she is getting Lasix 40 mg every 12 hours. On her blood work, her serum bicarb is quite elevated and today's level is at 39 and have improved as the patient received a dose of Diamox yesterday. Sodium level is at 135. White. Thousand 14.4 with a hemoglobin of 11.3. Her net fluid balance is -1.5 L for today and 2.1 L 4 yesterday. The chest x-ray from today is showing no significant abnormalities. Some limited infiltration of seen in the lung bases bilaterally. The patient otherwise is tolerating diet. Her blood sugars nonelevated. She is on IV Solu-Medrol. She is on theophylline. She is on albuterol HFA 2 puffs and this needs to be scheduled 4 times a day. I'm also going to add Symbicort 2 puffs twice a day for this patient in combination with Spiriva one ventilation related to further optimize her COPD. Objective - Vital Signs Vital signs: Vital Signs Temp 98.0 F 01/23/21 08:00 Pulse 89 01/23/21 09:00 Resp 14 01/23/21 09:00 BP 169/82 01/23/21 09:00 Pulse Ox 95 01/23/21 09:00 Intake & Output 01/22/21 01/23/21 01/23/21 18:59 06:59 18:59 Intake Total 300 120 270 Output Total 1020 900 100 Balance -720 -780 170 Weight 83.7 kg Intake: IV 200 120 20 0.9 Normal Saline @ KVO 200 120 20 10mL/hr Intake, IV Titration 100 100 Amount levETIRAcetam IV 1,000 mg 100 100 In Saline 1 100ml.bag @ 400 mls/hr IVPB Q12HR [facility] Rx#:[id number] Oral 150 Output: Urine 1020 900 100 Other: Voiding Method Indwelling Catheter Indwelling Catheter Indwelling Catheter - Exam Patient is currently awake on 10 L about 2 by nasal cannula, communicating and there is some underlying confusion. Neurologic exam remains nonfocal. HEENT examination is grossly unremarkable. Mucous membranes are moist. No oral lesions. Neck supple. Full range of motion. No adenopathy thyromegaly or neck vein distention. Cardiovascular examination reveals regular rhythm rate. S1-S2 normal. No S3 or S4. No discernible murmur noted. Heart sounds are distant. . Lungs reveal bilateral coarse rhonchi. Bibasilar crackles appreciated. Mild expiratory wheezes are noted. Breath sounds are equal bilaterally but severely diminished throughout. Abdomen soft bowel sounds are heard. No masses or tenderness. Extremities are intact. No cyanosis clubbing and there is +1-2 pitting edema lower extremities bilaterally. Skin is without rash or lesion. Neurologic examination is brief but nonfocal. The patient is moving all 4 extremities to command. She is profoundly weak. She is able to follow some simple commands. Positive cough. Positive gag. The pupils equal and reactive to light. No focal neurological deficits for now. No agitation. - Labs CBC & Chem 7: 01/23/21 05:17 01/23/21 05:17 Labs: Abnormal Lab Results - Last 24 Hours (Table) 01/22/21 01/22/21 01/22/21 Range/Units 09:46 11:38 17:57 WBC (3.8-10.6) k/uL Hgb (11.4-16.0) gm/dL RDW (11.5-15.5) % Neutrophils # (1.3-7.7) k/uL Lymphocytes # (1.0-4.8) k/uL ABG pH 7.46 H (7.35-7.45) ABG pCO2 75 H* (35-45) mmHg ABG pO2 71 L (83-108) mmHg ABG HCO3 53 H* (21-25) mmol/L ABG Total CO2 56 H (19-24) mmol/L Sodium (137-145) mmol/L Chloride (98-107) mmol/L Carbon Dioxide (22-30) mmol/L BUN (7-17) mg/dL Glucose (74-99) mg/dL POC Glucose (mg/dL) 126 H 116 H (75-99) mg/dL 01/22/21 01/23/21 01/23/21 Range/Units 23:56 05:17 05:17 WBC 14.4 H (3.8-10.6) k/uL Hgb 11.3 L (11.4-16.0) gm/dL RDW 17.8 H (11.5-15.5) % Neutrophils # 13.3 H (1.3-7.7) k/uL Lymphocytes # 0.4 L (1.0-4.8) k/uL ABG pH (7.35-7.45) ABG pCO2 (35-45) mmHg ABG pO2 (83-108) mmHg ABG HCO3 (21-25) mmol/L ABG Total CO2 (19-24) mmol/L Sodium 135 L (137-145) mmol/L Chloride 90 L (98-107) mmol/L Carbon Dioxide 39 H (22-30) mmol/L BUN 30 H (7-17) mg/dL Glucose 147 H (74-99) mg/dL POC Glucose (mg/dL) 179 H (75-99) mg/dL 01/23/21 Range/Units 05:56 WBC (3.8-10.6) k/uL Hgb (11.4-16.0) gm/dL RDW (11.5-15.5) % Neutrophils # (1.3-7.7) k/uL Lymphocytes # (1.0-4.8) k/uL ABG pH (7.35-7.45) ABG pCO2 (35-45) mmHg ABG pO2 (83-108) mmHg ABG HCO3 (21-25) mmol/L ABG Total CO2 (19-24) mmol/L Sodium (137-145) mmol/L Chloride (98-107) mmol/L Carbon Dioxide (22-30) mmol/L BUN (7-17) mg/dL Glucose (74-99) mg/dL POC Glucose (mg/dL) 156 H (75-99) mg/dL Assessment and Plan Plan: 1 Acute on chronic hypoxic and hypercapnic respiratory failure. The patient was initially hospitalized for COVID 19 related pneumonia and subsequently she had further decompensation breathing status due to a questionable seizure activity was witnessed this morning. Note that the patient's acid base status is improved considerably. This morning, the patient is currently off the BiPAP and she is on high flow oxygen. Chest x-ray showing some limited infiltration of the lung bases bilaterally. Neurologically, the patient slowly recovering and she is much more awake but confused. No focal neurological deficits on today's evaluation. 2 acute alteration of the mental status, possible seizures. Neurologically, the patient is improved considerably. No evidence of any seizure activity and the patient is currently on IV Keppra. 3 Covid 19 related pneumonia, inflammatory markers are normal including LDH and CRP currently on steroids. The patient is on IV Solu-Medrol. 3 severe COPD with chronic hypoxic and hypercapnic respiratory failure typically on oxygen 3 history of a nasal cannula 4 History of deep venous thrombosis. 5 History of hypertension. 6 History of rheumatoid arthritis. 7 History of colitis. 8 Osteopenia/osteoporosis. 9 Chronic back pain. 10 History of restless leg syndrome. 11 History of vulvar cancer. 12 Previous history of bowel resection. 13 Multiple other medical problems and comorbidities. Plan Gradually wean down the FiO2 to maintain a saturation above 90% Continue diuretics and no need for Diamox for today Neurologically recovering and keep the Keppra for now Chest x-ray was noted The patient is a DNR/DNI CODE STATUS and for that reason she'll be kept on BiPAP and no intubation will be performed. This is upon the wishes of the family. Continue Solu Medrol 60 mg every 6 hours regarding her COPD and the patient completed REM treatment has been completed Continue vitamin C and vitamin D and zinc supplements Lovenox for DVT prophylaxis Advance diet as the patient is able to swallow Condition is critical and prognosis poor based above-mentioned comorbidities.
[2021-01-23] MEDS: ALBUTEROL HFA INHALER INHALATION SCH ×3 (11:28→19:40)
[2021-01-23] MEDS: TIOTROPIUM 2.5 MCG INHALER INHALATION SCH (11:35)
[2021-01-23] MEDS: LEVOFLOXACIN 750MG-D5W PMX 750 MG in DEXTROSE/WATER 1 150ML.BAG IVPB SCH (12:10)
[2021-01-23 12:14] LABS: Glucose,Whole Blood 140 mg/dL (75-99)
[2021-01-23] MEDS ORDERED: IPRATROPIUM 0.5 MG/2.5 ML NEBU INHALATION SCH (13:00)
[2021-01-23 16:29] LABS: Glucose,Whole Blood 156 mg/dL (75-99)
--- NOTE | 2021-01-23 16:36 | P.PN ---
Subjective Progress Note Date: 01/23/21 Principal diagnosis: covid PNA Patient is still significantly confused, she is not able to answer questions appropriately at this point. She is off bipap currently and only requiring NC at 6L. Objective - Vital Signs Vital signs: Vital Signs Temp 99.2 F 01/23/21 14:04 Pulse 92 01/23/21 14:04 Resp 25 H 01/23/21 14:04 BP 167/83 01/23/21 14:04 Pulse Ox 90 L 01/23/21 14:04 Intake & Output 01/22/21 01/23/21 01/23/21 18:59 06:59 18:59 Intake Total 300 120 270 Output Total 1020 900 400 Balance -720 -780 -130 Weight 83.7 kg Intake: IV 200 120 20 0.9 Normal Saline @ KVO 200 120 20 10mL/hr Intake, IV Titration 100 100 Amount levETIRAcetam IV 1,000 mg 100 100 In Saline 1 100ml.bag @ 400 mls/hr IVPB Q12HR [facility] Rx#:[id number] Oral 150 Output: Urine 1020 900 400 Other: Voiding Method Indwelling Catheter Indwelling Catheter Indwelling Catheter - Exam Gen: More alert and oriented compared to yesterday's exam. HEENT: PERRL Resp: BiPAP: 10/5, FiO2 60%; symmetric chest expansion, prolonged expiratory phase. Bilateral wheezing and rhonchi. CVS: good distal perfusion x 4 : no SPT, no CVAT, patterson catheter is present MSK: + bilateral pitting edema, no clubbing Neuro: Alert and oriented 3, moving all extremities. - Labs CBC & Chem 7: 01/23/21 05:17 01/23/21 05:17 Labs: Abnormal Lab Results - Last 24 Hours (Table) 01/22/21 01/22/21 01/23/21 Range/Units 17:57 23:56 05:17 WBC 14.4 H (3.8-10.6) k/uL Hgb 11.3 L (11.4-16.0) gm/dL RDW 17.8 H (11.5-15.5) % Neutrophils # 13.3 H (1.3-7.7) k/uL Lymphocytes # 0.4 L (1.0-4.8) k/uL Sodium (137-145) mmol/L Chloride (98-107) mmol/L Carbon Dioxide (22-30) mmol/L BUN (7-17) mg/dL Glucose (74-99) mg/dL POC Glucose (mg/dL) 116 H 179 H (75-99) mg/dL 01/23/21 01/23/21 01/23/21 Range/Units 05:17 05:56 12:12 WBC (3.8-10.6) k/uL Hgb (11.4-16.0) gm/dL RDW (11.5-15.5) % Neutrophils # (1.3-7.7) k/uL Lymphocytes # (1.0-4.8) k/uL Sodium 135 L (137-145) mmol/L Chloride 90 L (98-107) mmol/L Carbon Dioxide 39 H (22-30) mmol/L BUN 30 H (7-17) mg/dL Glucose 147 H (74-99) mg/dL POC Glucose (mg/dL) 156 H 140 H (75-99) mg/dL 01/23/21 Range/Units 16:28 WBC (3.8-10.6) k/uL Hgb (11.4-16.0) gm/dL RDW (11.5-15.5) % Neutrophils # (1.3-7.7) k/uL Lymphocytes # (1.0-4.8) k/uL Sodium (137-145) mmol/L Chloride (98-107) mmol/L Carbon Dioxide (22-30) mmol/L BUN (7-17) mg/dL Glucose (74-99) mg/dL POC Glucose (mg/dL) 156 H (75-99) mg/dL Assessment and Plan Plan: Acute on chronic respiratory failure with hypoxia secondary to Covid 19 pneumonitis Acute on Chronic Hypercarbic Respiratory Failure secondary to End-stage COPD -Covid test reported as positive on 01/15/21 -Chest x-ray revealing right lower lobe consolidation. -CTA negative for acute PE revealing scattered infiltrates with larger more focal consolidations in the right middle dependent lower lobe -Contact plus droplet precautions. -Off BiPAP 01/23, currently on NC. -MDIs as needed for increased shortness of breath and/or wheezing. -Continue levofloxacin 750mg daily, started on 01/21 -s/p Remdes course, completed 3/25 -solumedrol 60 q6h, today is day 7 of steroids. -Vitamin C, vitamin D, zinc, melatonin, and guaifenesin. -Pulmonology following, appreciate further recommendations Seizure-like Activity -Seen by neurology -EEG, pending -keppra BID started Chronic cor pulmonale -Continue Lasix 40mg IV BID -Heart healthy diet. Chronic pain -Continue daily medication regimen with lidocaine patches, and Neurontin. Obesity with BMI of 35 -Encourage follow-up with PCP for outpatient counseling on diet and nutrition with structured weight loss. 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 CODE STATUS: Full code DVT prophylaxis: Lovenox Anticipated discharge date: [address]: [facility]
[2021-01-23] MEDS: MAGNESIUM OXIDE 400 MG TAB PO SCH (16:50)
[2021-01-23] MEDS: MULTIVITAMINS, THERA 1 EACH TAB PO SCH (16:50)
[2021-01-23] MEDS: POTASSIUM CHLORIDE ER 10 MEQ TAB.ER.PRT PO SCH (16:51)
--- NOTE | 2021-01-23 18:24 | P.PN ---
Subjective Progress Note Date: 01/23/21 Patient was seen for a follow-up with tele-neurology. Patient is now completely alert and awake, in fact appears hyperalert, very inattentive. She is no more on BiPAP. Patient appears quite delirious. Patient still quite confused. Patient is now on MedSurg floor on 460. Patient just speaks randomly staff, but sometimes does not make sense. Perseverates on her address. Objective - Vital Signs Vital signs: Vital Signs Temp 98.0 F 01/23/21 08:00 Pulse 89 01/23/21 09:00 Resp 14 01/23/21 09:00 BP 169/82 01/23/21 09:00 Pulse Ox 95 01/23/21 09:00 Intake & Output 01/22/21 01/23/21 01/23/21 18:59 06:59 18:59 Intake Total 300 120 270 Output Total 1020 900 100 Balance -720 -780 170 Weight 83.7 kg Intake: IV 200 120 20 0.9 Normal Saline @ KVO 200 120 20 10mL/hr Intake, IV Titration 100 100 Amount levETIRAcetam IV 1,000 mg 100 100 In Saline 1 100ml.bag @ 400 mls/hr IVPB Q12HR [facility] Rx#:[id number] Oral 150 Output: Urine 1020 900 100 Other: Voiding Method Indwelling Catheter Indwelling Catheter Indwelling Catheter - Exam Patient is alert and awake. She is hyperalert, hyperverbal. She speaks random stuff, which sometimes does not make sense. She perseverates on "[address] On reviewing of her demographics, at present she does not live at this address, therefore uncertain what she means. Appears somewhat manicky. When I would be talking to her and asking questions, patient would ask me to talk to the nurse, or check with her. Patient would not repeat, which appears somewhat voluntary, cannot rule out some degree of aphasia. She was able to name objects like ink pen, eyeglasses. She continues to perseverate on the address above. She is able to tell her name and then states random stuff. Patient at times appears to move slightly less the left side of the body. 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 Biceps appears equal. She was able to hold both arms equally and did not droop one side or the other. Patient able to wiggle her toes equally. Patient has downgoing plantar on the right, whereas up on the left. - Labs CBC & Chem 7: 01/23/21 05:17 01/23/21 05:17 Labs: Abnormal Lab Results - Last 24 Hours (Table) 01/22/21 01/22/21 01/22/21 Range/Units 11:38 17:57 23:56 WBC (3.8-10.6) k/uL Hgb (11.4-16.0) gm/dL RDW (11.5-15.5) % Neutrophils # (1.3-7.7) k/uL Lymphocytes # (1.0-4.8) k/uL Sodium (137-145) mmol/L Chloride (98-107) mmol/L Carbon Dioxide (22-30) mmol/L BUN (7-17) mg/dL Glucose (74-99) mg/dL POC Glucose (mg/dL) 126 H 116 H 179 H (75-99) mg/dL 01/23/21 01/23/21 01/23/21 Range/Units 05:17 05:17 05:56 WBC 14.4 H (3.8-10.6) k/uL Hgb 11.3 L (11.4-16.0) gm/dL RDW 17.8 H (11.5-15.5) % Neutrophils # 13.3 H (1.3-7.7) k/uL Lymphocytes # 0.4 L (1.0-4.8) k/uL Sodium 135 L (137-145) mmol/L Chloride 90 L (98-107) mmol/L Carbon Dioxide 39 H (22-30) mmol/L BUN 30 H (7-17) mg/dL Glucose 147 H (74-99) mg/dL POC Glucose (mg/dL) 156 H (75-99) mg/dL Assessment and Plan Assessment: * New onset seizure, possible due to hypercapnia, possible post ictal state, now resolved. Probable underlying toxic metabolic encephalopathy. Computed tomography scan of head showed no acute process, no abnormal density in the major vessels. * Persistent mental status change, some perseveration, mental confusion, rule out CVA. * Acute on chronic hypoxic and hypercapnic respiratory failure. * Covid 19 pneumonia. Plan: * Patient's level of consciousness and alertness is now normal, but she continues to have altered mental status, with some perseveration, questionable slightly decreased spontaneous movement on the left. CVA needs to be ruled out. We will check MRI of the brain. * CT head showed no acute process. * CTA of head and neck showed no stenosis, occlusion or aneurysm involving major cervical or intracranial vessels. * Continue Keppra 1000 mg IV twice a day, until EEG is complete. If no epileptiform, then may consider decreasing the dose of Keppra. * Hopefully EEG can be completed tomorrow, as she is not using BiPAP anymore. * Dr. Gaudencio Cade Will resume neurology service in a.m.
[2021-01-23] MEDS: SYMBICORT 80-4.5 MCG INHALER INHALATION SCH (19:40)
[2021-01-23] MEDS: MONTELUKAST 10 MG TAB PO SCH (20:43)
[2021-01-23] MEDS: MELATONIN 3 MG TABLET PO SCH (20:44)
[2021-01-24 00:16] LABS: Glucose,Whole Blood 187 mg/dL (75-99)
[2021-01-24] MEDS: INSULIN ASPART (NovoLOG) 100 UNIT/ML VIAL SQ SCH ×6 (00:23→23:13)
[2021-01-24] MEDS: methylPREDNISolone SOD SUCCI 125 MG/2 ML VIAL IV SCH ×3 (00:23→12:49)
[2021-01-24 06:11] LABS: Glucose,Whole Blood 184 mg/dL (75-99)
[2021-01-24] MEDS: GABAPENTIN 100 MG CAP PO SCH ×3 (06:14→20:04)
[2021-01-24] MEDS: hydrALAZINE HCL 20 MG/ML 1 ML VIAL IVP PRN (06:14)
[2021-01-24] MEDS: FUROSEMIDE 10 MG/ML 4 ML VIAL IV SCH (06:38)
[2021-01-24] MEDS: SYMBICORT 80-4.5 MCG INHALER INHALATION SCH ×2 (08:18→19:56)
[2021-01-24] MEDS: ALBUTEROL HFA INHALER INHALATION SCH ×4 (08:18→19:56)
[2021-01-24] MEDS: TIOTROPIUM 2.5 MCG INHALER INHALATION SCH ×2 (08:18→11:30)
[2021-01-24] MEDS: ENOXAPARIN 40 MG/0.4 ML SYRINGE SQ SCH (08:52)
[2021-01-24] MEDS: levETIRAcetam IV 750 MG in SODIUM CHLORIDE 0.9% 100 ML IVPB SCH ×2 (08:52→20:03)
[2021-01-24] MEDS: FLUTICASONE 50MCG/SPRAY NASAL 16GM EA NOSTRIL SCH (08:52)
[2021-01-24] MEDS: NYSTATIN 100,000 UNIT/ML SUSP 500,000 UNIT/5 ML CUP PO SCH ×3 (08:52→19:51)
[2021-01-24] MEDS: VERAPAMIL 80 MG TAB PO SCH ×3 (08:56→19:51)
[2021-01-24] MEDS: ZINC SULFATE 220 MG CAP PO SCH (08:56)
[2021-01-24] MEDS: LEVOFLOXACIN 750 MG TAB PO SCH (08:56)
[2021-01-24] MEDS: MORPHINE SULFATE ER 15 MG TABLET PO SCH ×2 (08:56→20:04)
[2021-01-24] MEDS: LORATADINE 10 MG TAB PO SCH (08:56)
[2021-01-24] MEDS: CHOLECALCIFEROL 25 MCG (1000 IU) TABLET PO SCH (08:57)
[2021-01-24] MEDS: ASCORBIC ACID 500 MG TAB PO SCH (08:57)
[2021-01-24] MEDS: PANTOPRAZOLE 40 MG TABLET PO SCH (08:57)
[2021-01-24] MEDS: DULoxetine HCL 30 MG CAPSULE.DR PO SCH (08:57)
[2021-01-24] MEDS: THEOPHYLLINE 24 HOUR 400 MG CAP.ER.24H PO SCH (08:57)
[2021-01-24] MEDS: LIDOCAINE 5% PATCH TOPICAL SCH ×2 (08:57→09:00)
[2021-01-24] MEDS: MINERAL OIL-WHITE PETROLATUM 120 GM JAR TOPICAL SCH ×2 (08:58→20:05)
[2021-01-24 11:37] LABS: Glucose,Whole Blood 170 mg/dL (75-99)
[2021-01-24 14:07] VITALS: BMI 34.8
--- NOTE | 2021-01-24 14:59 | MR ---
EXAMINATION TYPE: MR brain wo con DATE OF EXAM: 01/24/2021 2:46 PM COMPARISON: NONE HISTORY: New onset seizure, AMS, Rule out CVA FINDINGS: The ventricles, basal cisterns and sulci overlying the cerebral convexities are moderately enlarged. There is evidence of mild to moderate periventricular white matter ischemic demyelination. Remote deep white matter insults are also noted. No acute edema is seen on diffusion weighted imaging. There is no evidence for midline shift or mass effect. Acute intracranial hemorrhage or extra-axial collection is not evident. The paranasal sinuses and mastoid air cells are well-aerated. IMPRESSION: Age-related atrophic and chronic small vessel ischemic change. No acute intracranial process at this time.
--- NOTE | 2021-01-24 15:03 | EEG ---
ELECTROENCEPHALOGRAM REPORT DATE OF SERVICE: 01/24/2021 CLINICAL HISTORY: This is a 65-year-old woman with new onset seizure. This video EEG is obtained to evaluate for seizure and epileptiform activity. RELEVANT MEDICATION: Patient is on Keppra. EEG TYPE: A routine 21 channel EEG is performed with video using the 10/20 electrode placement system. DESCRIPTION: Wakefulness is only obtained. During wakefulness, there is a posterior dominant rhythm of low-voltage, poorly modulated, poorly sustained of 9-10 hertz activity over the bilateral hemisphere. There was no physiological stage II sleep seen. There is moderate amount of myogenic artifact that is diffuse over bilateral hemisphere but seems more left over right. There is no focal slowing. Interictal and ictal are none. ACTIVATION PROCEDURE: Photic stimulation and hyperventilation are not performed. CLINICAL INTERPRETATION: This is a normal routine EEG. There are no focal slowing, epileptiform discharges or seizure. Clinical correlation is recommended. ZAHRA / TYEN: [id number] /
--- NOTE | 2021-01-24 15:11 | P.PN ---
Subjective Progress Note Date: 01/24/21 Principal diagnosis: covid PNA Patient is still confused, answering questions inappropriately. No fevers or obvious pain. No other overnight events. Objective - Vital Signs Vital signs: Vital Signs Temp 98.2 F 01/24/21 10:39 Pulse 95 01/24/21 10:39 Resp 16 01/24/21 10:39 BP 160/83 01/24/21 10:39 Pulse Ox 94 L 01/24/21 10:39 Intake & Output 01/23/21 01/24/21 01/24/21 18:59 06:59 18:59 Intake Total 270 Output Total 400 625 Balance -130 -625 Weight 83.7 kg Intake: IV 20 0.9 Normal Saline @ KVO 20 10mL/hr Intake, IV Titration 100 Amount levETIRAcetam IV 1,000 mg 100 In Saline 1 100ml.bag @ 400 mls/hr IVPB Q12HR [facility] Rx#:[id number] Oral 150 Output: Urine 400 625 Other: Voiding Method Indwelling Catheter Indwelling Catheter Indwelling Catheter - Exam Gen: More alert and oriented compared to yesterday's exam. HEENT: PERRL Resp: BiPAP: 10/5, FiO2 60%; symmetric chest expansion, prolonged expiratory phase. Bilateral wheezing and rhonchi. CVS: good distal perfusion x 4 : no SPT, no CVAT, patterson catheter is present MSK: + bilateral pitting edema, no clubbing Neuro: Alert and oriented 3, moving all extremities. - Labs CBC & Chem 7: 01/23/21 05:17 01/23/21 05:17 Labs: Abnormal Lab Results - Last 24 Hours (Table) 01/23/21 01/24/21 01/24/21 Range/Units 16:28 00:14 06:09 POC Glucose (mg/dL) 156 H 187 H 184 H (75-99) mg/dL 01/24/21 Range/Units 11:27 POC Glucose (mg/dL) 170 H (75-99) mg/dL Assessment and Plan Plan: Acute on chronic respiratory failure with hypoxia secondary to Covid 19 pneumonitis Acute on Chronic Hypercarbic Respiratory Failure secondary to End-stage COPD -Covid test reported as positive on 01/15/21 -Chest x-ray revealing right lower lobe consolidation. -CTA negative for acute PE revealing scattered infiltrates with larger more focal consolidations in the right middle dependent lower lobe -Contact plus droplet precautions. -Off BiPAP 01/23, currently on NC. -MDIs as needed for increased shortness of breath and/or wheezing. -Continue levofloxacin 750mg daily, started on 01/21 -s/p Remdes course, completed 01/20 -Weaning down solumedrol as her breathing improved. -Vitamin C, vitamin D, zinc, melatonin, and guaifenesin. -Pulmonology following, appreciate further recommendations Seizure-like Activity -Seen by neurology -EEG, pending -keppra BID started Acute metabolic encephalopathy Likely secondary to above, steroids could be contributing Wean down steroids Neurology following MRI and EEG of the brain okay. Chronic cor pulmonale -Continue Lasix 40mg IV BID -Heart healthy diet. Chronic pain -Continue daily medication regimen with lidocaine patches, and Neurontin. Obesity with BMI of 35 -Encourage follow-up with PCP for outpatient counseling on diet and nutrition with structured weight loss. 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 CODE STATUS: Full code DVT prophylaxis: Lovenox Anticipated discharge date: [address]: [facility]
--- NOTE | 2021-01-24 15:57 | P.PN ---
Subjective Progress Note Date: 01/24/21 I'm seeing the patient for the first time, the patient was being seen by Dr. Almeida was last seen on 01/23/2021. Please defer to Dr. Almeida's note for further neurological workup as well as a history. Upon seeing the patient today she stated that she's doing okay. She denies of any neurological symptoms. Per the patient's nurse she stated that she seems stable and no further seizures. The patient nurse notified me that she is very hard of hearing and the has episodes where she continues to repeat herself. Objective - Vital Signs Vital signs: Vital Signs Temp 98.2 F 01/24/21 10:39 Pulse 95 01/24/21 10:39 Resp 16 01/24/21 10:39 BP 160/83 01/24/21 10:39 Pulse Ox 94 L 01/24/21 10:39 Intake & Output 01/23/21 01/24/21 01/24/21 18:59 06:59 18:59 Intake Total 270 Output Total 400 625 Balance -130 -625 Intake: IV 20 0.9 Normal Saline @ KVO 20 10mL/hr Intake, IV Titration 100 Amount levETIRAcetam IV 1,000 mg 100 In Saline 1 100ml.bag @ 400 mls/hr IVPB Q12HR [facility] Rx#:[id number] Oral 150 Output: Urine 400 625 Other: Voiding Method Indwelling Catheter Indwelling Catheter Indwelling Catheter - Exam GENERAL: The patient is lying in bed and is not in acute distress. NEUROLOGICAL: Higher mental function: The patient is awake, alert, oriented to self and stated she [place]but could not tell me which). Regarding the year she stated it was 1984. Patient is able to name objects correctly (pen, tissue box and cup). Patient is following commands. Continues to repeat the same phrase regarding numbers. No neglect. Cranial nerves: The pupils are round, equal and reactive to light and accommodation. Visual guzman are full to confrontation throughout. Extraocular movement is intact no nystagmus is noted. Facial sensation is normal to touch throughout. The facial strength is normal throughout. Hearing is severely decreased bilaterally to hand rub. Tongue is midline and moved [id number] without any difficulty. No dysarthria is noted. Shoulder shrug is normal bilaterally. Motor: Gait is deferred. The strength is lift all extremities above gravity without drift (upper > lowers. Lowers limited because of pain). Normal tone and bulk. Sensation: Sensation is normal to touch throughout. Plantars are downgoing bilaterally. - Labs CBC & Chem 7: 01/23/21 05:17 01/23/21 05:17 Labs: Abnormal Lab Results - Last 24 Hours (Table) 01/23/21 01/24/21 01/24/21 Range/Units 16:28 00:14 06:09 POC Glucose (mg/dL) 156 H 187 H 184 H (75-99) mg/dL 01/24/21 Range/Units 11:27 POC Glucose (mg/dL) 170 H (75-99) mg/dL Assessment and Plan Assessment: * New onset seizure, possible due to hypercapnia, possible post ictal state, now resolved. Possibly seizure due to COVID 19. * Altered mental status Probable underlying toxic metabolic encephalopathy and hypercapnia. * Acute on chronic hypoxic and hypercapnic respiratory failure. * Covid 19 pneumonia. Plan: * Patient's level of consciousness and alertness is now normal, but she continues to have altered mental status, with some perseveration, questionable slightly decreased spontaneous movement on the left. CVA needs to be ruled out. * CT head showed no acute process. * CTA of head and neck showed no stenosis, occlusion or aneurysm involving major cervical or intracranial vessels. * MR the brain is reported as age-related atrophic and chronic small vessel ischemic changes. No acute intracranial process at this time. * Pre-liminary EEG: It is normal. There are no focal slowing, profound disch arges or seizure in the EEG. * On Keppra 750 mg IV twice a day. Will not modify the antiepileptic drug. I recommended the patient follows up with a neurologist and if she continues to be seizure-free then recommend that titrating the dose as an outpatient. * The patient needs to follow-up with a neurologist as an outpatient within 1-2 weeks. * There is no further neurological workup needed at this time and will follow-up with patient sporadically. Plan was discussed with the patient's nurse. Gaudencio Cade MD Neuro-Hospitalist Time with Patient: Less than 30
[2021-01-24 17:26] LABS: Glucose,Whole Blood 185 mg/dL (75-99)
--- NOTE | 2021-01-24 18:14 | P.PN ---
Subjective Progress Note Date: 01/24/21 Principal diagnosis: CoVID 19 pneumonia 65-year-old female well-known to our service, with a history of severe COPD, who presents to the emergency department on January 15, at 10:30 AM, with complaints of shortness of breath. The patient was recently in the hospital between December 30 and January 05, with a COPD exacerbation. At that time, she tested negative for COVID 19. The patient states that since she got home, she has not been feeling well. The patient complains of worsening shortness of breath, chest tightness, cough, minimal phlegm production, and just overall weakness. Saturations are in the high 80s and low 90s on room air, and do increase into the low 90s, with O2. Currently she is on 5 L, and normally at home she is on 3 L. She has not been eating well she tells us, and just generally feeling weak and fatigued. She was brought in by EMS, and in route, did get some breathing treatments. She did test positive for COVID on this admission. White count 20.9, hemoglobin 9.9, hematocrit 31.3, and platelet count 231,000. PT INR and PTT were normal. D-dim er was 1.2. Sodium 133, potassium 4.2, chlorides 86, CO2 47, anion gap 0, BUN 14, and creatinine 0.55. The patient's LDH was 906, C-reactive protein 212, N- terminal proBNP 331, and pro-calcitonin 0.61. Chest x-ray showed some right lower lobe consolidation. CT angiogram was negative for pulmonary embolism, but did show some scattered infiltrates with large more focal consolidations in the right middle and lower lobe 01/17/2010 1 the patient is being seen for a follow-up. This patient is 65 with advanced COPD and the patient is also positive for Covid 19 related infection. Currently is on 5 L of oxygen by nasal cannula and she is typically on 3 L of oxygen at home. The patient is currently on Decadron 6 mg IV every 24 hours. The patient was also started on REM. Outpatient medications of been all resumed. The patient's white cell count was 11.6. She has chronic metabolic alkalosis. The d-dimer is at 1.28. LDH was 691 and CRP was 320. Chest x-ray was abnormal with bilateral pneumonia and the patient had a CT angios the chest that showed no evidence of any pulmonary embolism and it showed scattered infiltrates and more focal areas of consolidation in the right middle lobe and the lower lobe. Based on that, the patient was also started on broad-spectrum antibiotics and the patient is currently on IV Rocephin in addition. Home medication of been all resumed. Lovenox at 40 g subcu every 24 hours. The patient was last hospitalized in early December. At that time she was negative for Covid 19. Currently she is still on 5 L about 2 by nasal cannula. A chest x- ray showing peripheral infiltrates more so on the right typical of underlying Covid infection. She is feeling fatigued and tired. No worsening shortness of breath. The pro-calcitonin level was 0.61 and the patient is currently on antibiotics. Inflammatory markers have not been today 01/16/2021 on seeing the patient for a follow-up. The patient is currently on 4 L of Oxymizer by nasal cannula. The patient is currently being treated for COPD exacerbation and Covid 19 related pneumonia. The patient is currently on Decadron 6 mg IV every 24 hours. She is also on REM and she is on day #3. Over all, doing well. She is less bronchospastic and wheezy compared to yesterday. She is using the BiPAP at pressure of 10/5 overnight and currently is on 4 L. She is on Rocephin as a broad-spectrum antibiotic coverage. Note that she typically has oxygen at home at 3 L. In terms of her blood work, the patient has no inflammatory markers checked. Rest of the blood work is within normal limits for now. The plan is to send this patient to rehab. She has a BiPAP machine at home which I asked her to bring in For me to check and make appropriate adjustments to that she continue the same machine at the rehab facility. Today's evaluation of the 2020, the patient is doing well. The patient is on 5 L of oxygen by nasal cannula.. The patient is sitting up comfortably in bed. No complaints for now.. She feels that her breathing status is stable. She remains on 5 L of oxygen by nasal cannula. No chest pain. No palpitation. She has developed some increased lower extremity edema. The patient remains on Decadron 6 mg by mouth daily. The patient is also on REM. The patient is on day #4 of treatment. Overnight she is using a BiPAP at a pressure of 10/5 cm of water along with oxygen of 40%. The patient is also on Lovenox 40 mg subcu on a daily basis. No labs are available from today. She based on increased lower extremity edema, I change her to Lasix 40 mg IV every 24 hours. She also brought her machine from home and the patient turner off to have a APAP machine which is set at a minimum pressure of 5 and a massive pressure of 20 and a based on a 30 day supply sedated and restrained on the machine, the patient has been utilizing her machine effectively and her AHI was down to 1. On 01/20/2021, the patient is using oxygen alternating with BiPAP. She was on 5 L of oxygen earlier. She remains on Decadron 6 mg by mouth daily. She also on REM. She completed a total of 5 day course. Blood sugars are adequate and they're not elevated. She is afebrile. The inflammatory markers have not been checked in the last check was on 01/16/2021 LDH was nonelevated. I noted some increased swelling in lower extremities and the patient was started on Lasix 40 mg IV every 24 hours. She is producing adequate amount of urine output. She is utilizing the BiPAP on and off during the day. She is fatigued. She is looking into rehab. She is quite tired at this point in time. She is producing adequate amount of urine output. Adequate mentation. No chest pain. No change in her oxygenation for now. 01/21/2021, the patient got transferred to the intensive care unit. Apparently, the patient was doing well this morning and she was sitting up on a chair. She called the nurse and she told that she was feeling funny. Following that, she lost consciousness. She had some up rolling of her eyes. The [facility] team was called to the scene. The patient's was given Narcan 0.42 and following that the patient had generalized tonic-clonic seizures. At that point, the patient was given Ativan a total of 4 mg IV. She became somnolent and lethargic and she was found to be significant respiratory distress. She got chest to the ICU. Currently she is on a BiPAP at a pressure of 16/5 with an FiO2 of 60%. The blood gases was done while BiPAP and the patient's pH was 7.19 with a pCO2 of 11 and pO2 136. The chest x-ray is not showing any acute abnorma lities. This is consistent with COPD and is also consistent with Covid 19 related pneumonia. D-dimer today's at 1.1 with a normal coagulation profile. The patient's white cell count is at 9.8 with a hemoglobin of 5.9. Her serum bicarbonate is above 40. Her LDH level was 314 and a CRP level was down to 2.9 with a troponin of less than 0.01. Blood sugar this point is 136. The patient is lethargic And unresponsive at this point in time. He is on a BiPAP which is able to tolerate. She generated a tidal volume of 350 and her respiratory currently is around 15-20 with a minute ventilation of 11 L. The patient's appetite is at 60%. Obviously the current unresponsiveness is a combination of hypercapnic respiratory failure, drugs and post ictal state. We are not sure if the patient had any history of seizure activity or seizure disorder. We'll consult neurology. We'll start the patient on Keppra. Would order an EEG. Family has changed her CODE STATUS is DNR/DNI. 01/22/2021, the patient is extremely lethargic but she is arousable. Upon stimulation, was able to arouse her and I was able to obtain some reaction from her with she was following some simple commands. No seizure activity has been noted since yesterday the patient is still on IV Keppra. CT a of the brain was done yesterday and it showed no evidence of any carotid stenosis or any other significant findings. Neurology is on the case. EEG has not been performed. The patient is still on a BiPAP at a pressure of 16/5 cm of water and her FiO2 currently is at 60%. The blood gases were showing ongoing improvement in her acid base status. Follow-up blood gases will be needed today. The chest x-ray from today showed no major interval change or abnormalities. No worsening in her oxygenation status on the monitor. Serum bicarb is up to 52. We'll obtain a blood gas and likely benefit from Diamox and the patient was becoming alkalotic due to diuretics and she was getting Lasix 40 mg IV every 12 hours which was placed on hold taken in account that she is currently nothing by mouth and not receiving any IV fluids and probably somewhat dry. She continues to have some edema in lower extremities bilaterally. No other issues for now. Neurologist on the case. Neurologic exam is nonfocal. She has regained her level of alertness since yesterday and she seems to be much more interactive today. Her CODE STATUS is DNR/DNI. On 01/23/2021, the patient is awake but confused. The patient is verbal. She is communicating. She has no focal neurological deficit. She has not had any seizure activity since yesterday. She remains on IV Keppra. Neurology is also on the case. She is moving all 4 extremities. She is however confused without any limitation. She was on BiPAP throughout the day yesterday and the pressures of 16/5 and currently she is on 10 L of oxygen high flow with a pulse ox of 97% and a low The gradually weaned off. She remains on steroids. Diuretics were restarted yesterday and she is getting Lasix 40 mg every 12 hours. On her blood work, her serum bicarb is quite elevated and today's level is at 39 and have improved as the patient received a dose of Diamox yesterday. Sodium level is at 135. White. Thousand 14.4 with a hemoglobin of 11.3. Her net fluid balance is -1.5 L for today and 2.1 L 4 yesterday. The chest x-ray from today is showing no significant abnormalities. Some limited infiltration of seen in the lung bases bilaterally. The patient otherwise is tolerating diet. Her blood sugars nonelevated. She is on IV Solu-Medrol. She is on theophylline. She is on albuterol HFA 2 puffs and this needs to be scheduled 4 times a day. I'm also going to add Symbicort 2 puffs twice a day for this patient in combination with Spiriva one ventilation related to further optimize her COPD. The patient is seen today 01/24/2021 in follow-up on the regular medical floor. She is currently sitting up in a chair at the bedside. Awake and alert. She is somewhat confused to time and place. She is on 5 L/m per nasal cannula currently. O2 saturation 97%. She's been afebrile. She is continued on bronchodilators, Singulair, theophylline, Lovenox, IV Solu-Medrol. Antibiotics in the form of Levaquin. EEG of the brain revealed no focal slowing, epilep tiform discharges or seizure activity. MRI of the brain revealed age-related atrophic and chronic small vessel ischemic changes. No acute intracranial process. Objective - Vital Signs Vital signs: Vital Signs Temp 97.6 F 01/24/21 14:00 Pulse 94 01/24/21 14:00 Resp 20 01/24/21 14:00 BP 159/83 01/24/21 14:00 Pulse Ox 97 01/24/21 14:00 Intake & Output 01/23/21 01/24/21 01/24/21 18:59 06:59 18:59 Intake Total 270 Output Total 400 625 Balance -130 -625 Weight 83.7 kg Intake: IV 20 0.9 Normal Saline @ KVO 20 10mL/hr Intake, IV Titration 100 Amount levETIRAcetam IV 1,000 mg 100 In Saline 1 100ml.bag @ 400 mls/hr IVPB Q12HR [facility] Rx#:[id number] Oral 150 Output: Urine 400 625 Other: Voiding Method Indwelling Catheter Indwelling Catheter Indwelling Catheter - Exam GENERAL EXAM: 65-year-old female patient, alert, confused place and time, on 5 L nasal cannula, comfortable in no apparent distress. HEAD: Normocephalic. EYES: Normal reaction of pupils, equal size. NOSE: Clear with pink turbinates. THROAT: No erythema or exudates. NECK: No masses, no JVD. CHEST: No chest wall deformity. LUNGS: Equal air entry with expiratory wheeze, crackles in the posterior bases, diminished. CVS: S1 and S2 normal with no audible murmur, regular rhythm. ABDOMEN: No hepatosplenomegaly, normal bowel sounds, no guarding or rigidity. SPINE: No scoliosis or deformity SKIN: No rashes CENTRAL NERVOUS SYSTEM: No focal deficits, tone is normal in all 4 extremities. EXTREMITIES: There is no peripheral edema. No clubbing, no cyanosis. Peripheral pulses are intact. - Labs CBC & Chem 7: 01/23/21 05:17 01/23/21 05:17 Labs: Abnormal Lab Results - Last 24 Hours (Table) 01/24/21 01/24/21 01/24/21 Range/Units 00:14 06:09 11:27 POC Glucose (mg/dL) 187 H 184 H 170 H (75-99) mg/dL 01/24/21 Range/Units 17:09 POC Glucose (mg/dL) 185 H (75-99) mg/dL Assessment and Plan Assessment: 1 Acute on chronic hypoxic and hypercapnic respiratory failure. The patient was initially hospitalized for COVID 19 related pneumonia and subsequently she had further decompensation breathing status due to a questionable seizure activity was witnessed this morning. Note that the patient's acid base status is improved considerably. This morning, the patient is currently off the BiPAP and she is on IV liters high flow oxygen. Neurologically, the patient slowly recovering and she is much more awake but confused. No focal neurological deficits on today's evaluation. 2 acute alteration of the mental status. Neurologically, the patient is improved considerably. No evidence of any seizure activity and the patient is currently on IV Keppra. EEG revealed no seizure activity. MRI of the brain revealed no acute intracranial processes. 3 Covid 19 related pneumonia, inflammatory markers are normal including LDH and CRP currently on steroids. The patient is on IV Solu-Medrol. 3 severe COPD with chronic hypoxic and hypercapnic respiratory failure typically on oxygen 3 history of a nasal cannula 4 History of deep venous thrombosis. 5 History of hypertension. 6 History of rheumatoid arthritis. 7 History of colitis. 8 Osteopenia/osteoporosis. 9 Chronic back pain. 10 History of restless leg syndrome. 11 History of vulvar cancer. 12 Previous history of bowel resection. 13 Multiple other medical problems and comorbidities. Plan The patient was seen and evaluated by Dr. Ibrahim Continue on 5 L nasal cannula for now. BiPAP as needed during the day and throughout the night EEG, MRI reviewed Improving neurologically no seizure activity DO NOT RESUSCITATE/DO NOT INTUBATE CODE STATUS We will continue to follow I, the cosigning physician, performed a history & physical examination of the patient. Lungs sounds lateral end expiratory wheezes, basilar crackles, diminished. Maintaining good O2 saturations in the 90s on 5 L/m per nasal cannula. I discussed the assessment and plan of care with my nurse practitioner, Symone Ohara. I attest to the above note as dictated by her.
[2021-01-24] MEDS: methylPREDNISolone SOD SUCCI 40 MG/ML 1 ML VIAL IV SCH ×2 (19:50→23:13)
[2021-01-24] MEDS: POTASSIUM CHLORIDE ER 10 MEQ TAB.ER.PRT PO SCH (19:51)
[2021-01-24] MEDS: MAGNESIUM OXIDE 400 MG TAB PO SCH (19:51)
[2021-01-24] MEDS: MULTIVITAMINS, THERA 1 EACH TAB PO SCH (19:51)
[2021-01-24] MEDS: MONTELUKAST 10 MG TAB PO SCH (20:05)
[2021-01-24] MEDS: MELATONIN 3 MG TABLET PO SCH (20:05)
[2021-01-24 23:09] LABS: Glucose,Whole Blood 403 mg/dL (75-99)
[2021-01-25] MEDS: hydrALAZINE HCL 20 MG/ML 1 ML VIAL IVP PRN (04:36)
[2021-01-25 05:10] LABS: Glucose,Whole Blood 307 mg/dL (75-99)
[2021-01-25] MEDS: INSULIN ASPART (NovoLOG) 100 UNIT/ML VIAL SQ SCH ×4 (05:14→23:20)
[2021-01-25] MEDS: GABAPENTIN 100 MG CAP PO SCH ×3 (05:14→20:37)
[2021-01-25] MEDS: ZINC SULFATE 220 MG CAP PO SCH (07:48)
[2021-01-25] MEDS: ASCORBIC ACID 500 MG TAB PO SCH (07:48)
[2021-01-25] MEDS: CHOLECALCIFEROL 25 MCG (1000 IU) TABLET PO SCH (07:48)
[2021-01-25] MEDS: PANTOPRAZOLE 40 MG TABLET PO SCH (07:49)
[2021-01-25] MEDS: LORATADINE 10 MG TAB PO SCH (07:49)
[2021-01-25] MEDS: MORPHINE SULFATE ER 15 MG TABLET PO SCH ×2 (07:50→20:37)
[2021-01-25] MEDS: ENOXAPARIN 40 MG/0.4 ML SYRINGE SQ SCH (07:50)
[2021-01-25] MEDS: VERAPAMIL 80 MG TAB PO SCH ×3 (07:50→17:39)
[2021-01-25] MEDS: THEOPHYLLINE 24 HOUR 400 MG CAP.ER.24H PO SCH (07:50)
[2021-01-25] MEDS: DULoxetine HCL 30 MG CAPSULE.DR PO SCH (07:51)
[2021-01-25] MEDS: MINERAL OIL-WHITE PETROLATUM 120 GM JAR TOPICAL SCH ×2 (07:51→20:38)
[2021-01-25] MEDS: NYSTATIN 100,000 UNIT/ML SUSP 500,000 UNIT/5 ML CUP PO SCH ×3 (07:51→17:39)
[2021-01-25] MEDS: FLUTICASONE 50MCG/SPRAY NASAL 16GM EA NOSTRIL SCH (08:00)
[2021-01-25] MEDS: ALBUTEROL HFA INHALER INHALATION SCH ×4 (08:40→19:23)
[2021-01-25] MEDS: SYMBICORT 80-4.5 MCG INHALER INHALATION SCH ×2 (08:41→19:23)
[2021-01-25] MEDS: TIOTROPIUM 2.5 MCG INHALER INHALATION SCH (08:41)
[2021-01-25] MEDS: methylPREDNISolone SOD SUCCI 40 MG/ML 1 ML VIAL IV SCH ×2 (08:59→18:09)
[2021-01-25] MEDS: levETIRAcetam IV 750 MG in SODIUM CHLORIDE 0.9% 100 ML IVPB SCH ×2 (08:59→20:37)
[2021-01-25] MEDS: LIDOCAINE 5% PATCH TOPICAL SCH (09:00)
[2021-01-25 09:42] LABS: HCT 33.8 % (37.2-46.3); HGB 9.9 g/dL (12.0-15.0); MCH 26.7 pg (27.0-32.0); MCHC 29.3 g/dL (32.0-37.0); MCV 91.1 fL (80.0-97.0); Mean Platelet Volume 10.6 fL (9.5-12.2); Platelet Count 291 X 10*3/uL (140-440); RBC 3.71 X 10*6/uL (4.10-5.20); RDW 17.8 % (11.5-14.5); WBC 10.13 X 10*3/uL (4.50-10.00)
[2021-01-25 09:57] LABS: African American GFR (CKD) 103.9 (60.0-200.0); Albumin 3.5 g/dL (3.80-4.90); Albumin/Globulin Ratio 2.33 (1.60-3.17); Anion Gap 6.9 mmol/L (4.00-12.00); BUN/Creat Ratio 48.57 Ratio (12.00-20.00); Carbon Dioxide 36.1 mmol/L (21.6-31.8); Globulin 1.5 g/dL (1.6-3.3); Magnesium 2.4 mg/dL (1.5-2.4); Non-African American GFR(CKD) 89.7 (60.0-200.0); Phosphorus 2.9 mg/dL (2.4-5.1); Potassium 3.9 mmol/L (3.5-5.5); Total Bilirubin 0.4 mg/dL (0.2-1.2)
[2021-01-25 11:44] LABS: Glucose,Whole Blood 254 mg/dL (75-99)
[2021-01-25] MEDS: LEVOFLOXACIN 750 MG TAB PO SCH (11:51)
[2021-01-25] MEDS ORDERED: FUROSEMIDE 10 MG/ML 2 ML VIAL IV ONE (16:30)
--- NOTE | 2021-01-25 16:36 | P.PN ---
Subjective Progress Note Date: 01/25/21 Principal diagnosis: covid PNA Patient still intermittently confused. He is still on 5 L nasal cannula with oxygen saturations in the low 90s. She has required BiPAP last night. Objective - Vital Signs Vital signs: Vital Signs Temp 98.2 F 01/25/21 14:00 Pulse 110 H 01/25/21 14:00 Resp 19 01/25/21 14:00 BP 156/74 01/25/21 14:00 Pulse Ox 91 L 01/25/21 14:00 Intake & Output 01/24/21 01/25/21 01/25/21 18:59 06:59 18:59 Intake Total 150 Output Total 500 300 Balance -500 -150 Weight 83.7 kg Intake: Oral 150 Output: Urine 500 300 Other: Voiding Method Indwelling Catheter Indwelling Catheter - Exam Gen: More alert and oriented compared to yesterday's exam. HEENT: PERRL Resp: BiPAP: 10/5, FiO2 60%; symmetric chest expansion, prolonged expiratory phase. Bilateral wheezing and rhonchi. CVS: good distal perfusion x 4 : no SPT, no CVAT, patterson catheter is present MSK: + bilateral pitting edema, no clubbing Neuro: Alert and oriented 3, moving all extremities. - Labs CBC & Chem 7: 01/25/21 05:34 01/25/21 05:34 Labs: Abnormal Lab Results - Last 24 Hours (Table) 01/24/21 01/24/21 01/25/21 Range/Units 17:09 23:07 05:09 WBC (4.50-10.00) X 10*3/uL RBC (4.10-5.20) X 10*6/uL Hgb (12.0-15.0) g/dL Hct (37.2-46.3) % MCH (27.0-32.0) pg MCHC (32.0-37.0) g/dL RDW (11.5-14.5) % Carbon Dioxide (21.6-31.8) mmol/L BUN (9.0-27.0) mg/dL BUN/Creatinine Ratio (12.00-20.00) Ratio Glucose (70-110) mg/dL POC Glucose (mg/dL) 185 H 403 H 307 H (75-99) mg/dL Total Protein (6.2-8.2) g/dL Albumin (3.80-4.90) g/dL Globulin (1.6-3.3) g/dL 01/25/21 01/25/21 01/25/21 Range/Units 05:34 05:34 11:42 WBC 10.13 H (4.50-10.00) X 10*3/uL RBC 3.71 L (4.10-5.20) X 10*6/uL Hgb 9.9 L (12.0-15.0) g/dL Hct 33.8 L (37.2-46.3) % MCH 26.7 L (27.0-32.0) pg MCHC 29.3 L (32.0-37.0) g/dL RDW 17.8 H (11.5-14.5) % Carbon Dioxide 36.1 H (21.6-31.8) mmol/L BUN 34.0 H (9.0-27.0) mg/dL BUN/Creatinine Ratio 48.57 H (12.00-20.00) Ratio Glucose 211 H (70-110) mg/dL POC Glucose (mg/dL) 254 H (75-99) mg/dL Total Protein 5.0 L (6.2-8.2) g/dL Albumin 3.50 L (3.80-4.90) g/dL Globulin 1.5 L (1.6-3.3) g/dL Assessment and Plan Plan: Acute on chronic respiratory failure with hypoxia secondary to Covid 19 pneumonitis Acute on Chronic Hypercarbic Respiratory Failure secondary to End-stage COPD -Covid test reported as positive on 01/15/21 -Chest x-ray revealing right lower lobe consolidation. -CTA negative for acute PE revealing scattered infiltrates with larger more focal consolidations in the right middle dependent lower lobe -Contact plus droplet precautions. -Off BiPAP 01/23, currently on NC. Currently only getting BiPAP intermittently as needed. -MDIs as needed for increased shortness of breath and/or wheezing. -Continue levofloxacin 750mg daily, started on 01/21 -s/p Remdes course, completed 01/20 -Steroids switched to prednisone orally today -Vitamin C, vitamin D, zinc, melatonin, and guaifenesin. -Pulmonology following, appreciate further recommendations Seizure-like Activity -Seen by neurology -EEG, negative for seizure activity -keppra BID started Acute metabolic encephalopathy Likely secondary to above, steroids could be contributing Continue to wean down steroids as tolerated Neurology following MRI and EEG of the brain okay. Chronic cor pulmonale -Status post diuresis with Lasix 40 in the admission, currently doing well -Heart healthy diet. Chronic pain -Continue daily medication regimen with lidocaine patches, and Neurontin. Obesity with BMI of 35 -Encourage follow-up with PCP for outpatient counseling on diet and nutrition with structured weight loss. 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 CODE STATUS: Full code DVT prophylaxis: Lovenox Anticipated discharge date: [address]: [facility]
[2021-01-25 16:55] LABS: Glucose,Whole Blood 311 mg/dL (75-99)
--- NOTE | 2021-01-25 17:32 | P.PN ---
Subjective Progress Note Date: 01/25/21 Principal diagnosis: CoVID 19 pneumonia 65-year-old female well-known to our service, with a history of severe COPD, who presents to the emergency department on January 15, at 10:30 AM, with complaints of shortness of breath. The patient was recently in the hospital between December 30 and January 05, with a COPD exacerbation. At that time, she tested negative for COVID 19. The patient states that since she got home, she has not been feeling well. The patient complains of worsening shortness of breath, chest tightness, cough, minimal phlegm production, and just overall weakness. Saturations are in the high 80s and low 90s on room air, and do increase into the low 90s, with O2. Currently she is on 5 L, and normally at home she is on 3 L. She has not been eating well she tells us, and just generally feeling weak and fatigued. She was brought in by EMS, and in route, did get some breathing treatments. She did test positive for COVID on this admission. White count 20.9, hemoglobin 9.9, hematocrit 31.3, and platelet count 231,000. PT INR and PTT were normal. D-dim er was 1.2. Sodium 133, potassium 4.2, chlorides 86, CO2 47, anion gap 0, BUN 14, and creatinine 0.55. The patient's LDH was 906, C-reactive protein 212, N- terminal proBNP 331, and pro-calcitonin 0.61. Chest x-ray showed some right lower lobe consolidation. CT angiogram was negative for pulmonary embolism, but did show some scattered infiltrates with large more focal consolidations in the right middle and lower lobe 01/17/2010 1 the patient is being seen for a follow-up. This patient is 65 with advanced COPD and the patient is also positive for Covid 19 related infection. Currently is on 5 L of oxygen by nasal cannula and she is typically on 3 L of oxygen at home. The patient is currently on Decadron 6 mg IV every 24 hours. The patient was also started on REM. Outpatient medications of been all resumed. The patient's white cell count was 11.6. She has chronic metabolic alkalosis. The d-dimer is at 1.28. LDH was 691 and CRP was 320. Chest x-ray was abnormal with bilateral pneumonia and the patient had a CT angios the chest that showed no evidence of any pulmonary embolism and it showed scattered infiltrates and more focal areas of consolidation in the right middle lobe and the lower lobe. Based on that, the patient was also started on broad-spectrum antibiotics and the patient is currently on IV Rocephin in addition. Home medication of been all resumed. Lovenox at 40 g subcu every 24 hours. The patient was last hospitalized in early December. At that time she was negative for Covid 19. Currently she is still on 5 L about 2 by nasal cannula. A chest x- ray showing peripheral infiltrates more so on the right typical of underlying Covid infection. She is feeling fatigued and tired. No worsening shortness of breath. The pro-calcitonin level was 0.61 and the patient is currently on antibiotics. Inflammatory markers have not been today 01/16/2021 on seeing the patient for a follow-up. The patient is currently on 4 L of Oxymizer by nasal cannula. The patient is currently being treated for COPD exacerbation and Covid 19 related pneumonia. The patient is currently on Decadron 6 mg IV every 24 hours. She is also on REM and she is on day #3. Over all, doing well. She is less bronchospastic and wheezy compared to yesterday. She is using the BiPAP at pressure of 10/5 overnight and currently is on 4 L. She is on Rocephin as a broad-spectrum antibiotic coverage. Note that she typically has oxygen at home at 3 L. In terms of her blood work, the patient has no inflammatory markers checked. Rest of the blood work is within normal limits for now. The plan is to send this patient to rehab. She has a BiPAP machine at home which I asked her to bring in For me to check and make appropriate adjustments to that she continue the same machine at the rehab facility. Today's evaluation of the 2020, the patient is doing well. The patient is on 5 L of oxygen by nasal cannula.. The patient is sitting up comfortably in bed. No complaints for now.. She feels that her breathing status is stable. She remains on 5 L of oxygen by nasal cannula. No chest pain. No palpitation. She has developed some increased lower extremity edema. The patient remains on Decadron 6 mg by mouth daily. The patient is also on REM. The patient is on day #4 of treatment. Overnight she is using a BiPAP at a pressure of 10/5 cm of water along with oxygen of 40%. The patient is also on Lovenox 40 mg subcu on a daily basis. No labs are available from today. She based on increased lower extremity edema, I change her to Lasix 40 mg IV every 24 hours. She also brought her machine from home and the patient returns supervisor to have a APAP machine which is set at a minimum pressure of 5 and a massive pressure of 20 and a based on a 30 day supply sedated and restrained on the machine, the patient has been utilizing her machine effectively and her AHI was down to 1. On 01/20/2021, the patient is using oxygen alternating with BiPAP. She was on 5 L of oxygen earlier. She remains on Decadron 6 mg by mouth daily. She also on REM. She completed a total of 5 day course. Blood sugars are adequate and they're not elevated. She is afebrile. The inflammatory markers have not been checked in the last check was on 01/16/2021 LDH was nonelevated. I noted some increased swelling in lower extremities and the patient was started on Lasix 40 mg IV every 24 hours. She is producing adequate amount of urine output. She is utilizing the BiPAP on and off during the day. She is fatigued. She is looking into rehab. She is quite tired at this point in time. She is producing adequate amount of urine output. Adequate mentation. No chest pain. No change in her oxygenation for now. 01/21/2021, the patient got transferred to the intensive care unit. Apparently, the patient was doing well this morning and she was sitting up on a chair. She called the nurse and she told that she was feeling funny. Following that, she lost consciousness. She had some up rolling of her eyes. The [facility] team was called to the scene. The patient's was given Narcan 0.42 and following that the patient had generalized tonic-clonic seizures. At that point, the patient was given Ativan a total of 4 mg IV. She became somnolent and lethargic and she was found to be significant respiratory distress. She got chest to the ICU. Currently she is on a BiPAP at a pressure of 16/5 with an FiO2 of 60%. The blood gases was done while BiPAP and the patient's pH was 7.19 with a pCO2 of 11 and pO2 136. The chest x-ray is not showing any acute abnorma lities. This is consistent with COPD and is also consistent with Covid 19 related pneumonia. D-dimer today's at 1.1 with a normal coagulation profile. The patient's white cell count is at 9.8 with a hemoglobin of 5.9. Her serum bicarbonate is above 40. Her LDH level was 314 and a CRP level was down to 2.9 with a troponin of less than 0.01. Blood sugar this point is 136. The patient is lethargic And unresponsive at this point in time. He is on a BiPAP which is able to tolerate. She generated a tidal volume of 350 and her respiratory currently is around 15-20 with a minute ventilation of 11 L. The patient's appetite is at 60%. Obviously the current unresponsiveness is a combination of hypercapnic respiratory failure, drugs and post ictal state. We are not sure if the patient had any history of seizure activity or seizure disorder. We'll consult neurology. We'll start the patient on Keppra. Would order an EEG. Family has changed her CODE STATUS is DNR/DNI. 01/22/2021, the patient is extremely lethargic but she is arousable. Upon stimulation, was able to arouse her and I was able to obtain some reaction from her with she was following some simple commands. No seizure activity has been noted since yesterday the patient is still on IV Keppra. CT a of the brain was done yesterday and it showed no evidence of any carotid stenosis or any other significant findings. Neurology is on the case. EEG has not been performed. The patient is still on a BiPAP at a pressure of 16/5 cm of water and her FiO2 currently is at 60%. The blood gases were showing ongoing improvement in her acid base status. Follow-up blood gases will be needed today. The chest x-ray from today showed no major interval change or abnormalities. No worsening in her oxygenation status on the monitor. Serum bicarb is up to 52. We'll obtain a blood gas and likely benefit from Diamox and the patient was becoming alkalotic due to diuretics and she was getting Lasix 40 mg IV every 12 hours which was placed on hold taken in account that she is currently nothing by mouth and not receiving any IV fluids and probably somewhat dry. She continues to have some edema in lower extremities bilaterally. No other issues for now. Neurologist on the case. Neurologic exam is nonfocal. She has regained her level of alertness since yesterday and she seems to be much more interactive today. Her CODE STATUS is DNR/DNI. On 01/23/2021, the patient is awake but confused. The patient is verbal. She is communicating. She has no focal neurological deficit. She has not had any seizure activity since yesterday. She remains on IV Keppra. Neurology is also on the case. She is moving all 4 extremities. She is however confused without any limitation. She was on BiPAP throughout the day yesterday and the pressures of 16/5 and currently she is on 10 L of oxygen high flow with a pulse ox of 97% and a low The gradually weaned off. She remains on steroids. Diuretics were restarted yesterday and she is getting Lasix 40 mg every 12 hours. On her blood work, her serum bicarb is quite elevated and today's level is at 39 and have improved as the patient received a dose of Diamox yesterday. Sodium level is at 135. White. Thousand 14.4 with a hemoglobin of 11.3. Her net fluid balance is -1.5 L for today and 2.1 L 4 yesterday. The chest x-ray from today is showing no significant abnormalities. Some limited infiltration of seen in the lung bases bilaterally. The patient otherwise is tolerating diet. Her blood sugars nonelevated. She is on IV Solu-Medrol. She is on theophylline. She is on albuterol HFA 2 puffs and this needs to be scheduled 4 times a day. I'm also going to add Symbicort 2 puffs twice a day for this patient in combination with Spiriva one ventilation related to further optimize her COPD. The patient is seen today 01/24/2021 in follow-up on the regular medical floor. She is currently sitting up in a chair at the bedside. Awake and alert. She is somewhat confused to time and place. She is on 5 L/m per nasal cannula currently. O2 saturation 97%. She's been afebrile. She is continued on bronchodilators, Singulair, theophylline, Lovenox, IV Solu-Medrol. Antibiotics in the form of Levaquin. EEG of the brain revealed no focal slowing, epilep tiform discharges or seizure activity. MRI of the brain revealed age-related atrophic and chronic small vessel ischemic changes. No acute intracranial process. The patient is seen today 01/25/2021 in follow-up on the regular medical floor. She is currently resting comfortably in bed. Awake and alert in no acute distress. Still with some occasional confusion. He is down to 5 L high flow na nathalia cannula maintaining O2 saturations in the low 90s. She's afebrile. White count 10.1. Hemoglobin 9.9. Sodium 141. Potassium 3.9. Creatinine 0.7. She is continued on bronchodilators, Singulair, theophylline, Lovenox, IV Solu- Medrol. Antibiotics in the form of Levaquin. Objective - Vital Signs Vital signs: Vital Signs Temp 98.2 F 01/25/21 14:00 Pulse 110 H 01/25/21 14:00 Resp 19 01/25/21 14:00 BP 156/74 01/25/21 14:00 Pulse Ox 91 L 01/25/21 14:00 Intake & Output 01/24/21 01/25/21 01/25/21 18:59 06:59 18:59 Intake Total 150 Output Total 500 300 Balance -500 -150 Weight 83.7 kg Intake: Oral 150 Output: Urine 500 300 Other: Voiding Method Indwelling Catheter Indwelling Catheter - Exam GENERAL EXAM: 65-year-old female patient, alert, confused to place and time, on 5 L nasal cannula, comfortable in no apparent distress. HEAD: Normocephalic. EYES: Normal reaction of pupils, equal size. NOSE: Clear with pink turbinates. THROAT: No erythema or exudates. NECK: No masses, no JVD. CHEST: No chest wall deformity. LUNGS: Equal air entry with expiratory wheeze, crackles in the posterior bases, diminished. CVS: S1 and S2 normal with no audible murmur, regular rhythm. ABDOMEN: No hepatosplenomegaly, normal bowel sounds, no guarding or rigidity. SPINE: No scoliosis or deformity SKIN: No rashes CENTRAL NERVOUS SYSTEM: No focal deficits, tone is normal in all 4 extremities. EXTREMITIES: There is no peripheral edema. No clubbing, no cyanosis. Peripheral pulses are intact. - Labs CBC & Chem 7: 01/25/21 05:34 01/25/21 05:34 Labs: Abnormal Lab Results - Last 24 Hours (Table) 01/24/21 01/24/21 01/25/21 Range/Units 17:09 23:07 05:09 WBC (4.50-10.00) X 10*3/uL RBC (4.10-5.20) X 10*6/uL Hgb (12.0-15.0) g/dL Hct (37.2-46.3) % MCH (27.0-32.0) pg MCHC (32.0-37.0) g/dL RDW (11.5-14.5) % Carbon Dioxide (21.6-31.8) mmol/L BUN (9.0-27.0) mg/dL BUN/Creatinine Ratio (12.00-20.00) Ratio Glucose (70-110) mg/dL POC Glucose (mg/dL) 185 H 403 H 307 H (75-99) mg/dL Total Protein (6.2-8.2) g/dL Albumin (3.80-4.90) g/dL Globulin (1.6-3.3) g/dL 01/25/21 01/25/21 01/25/21 Range/Units 05:34 05:34 11:42 WBC 10.13 H (4.50-10.00) X 10*3/uL RBC 3.71 L (4.10-5.20) X 10*6/uL Hgb 9.9 L (12.0-15.0) g/dL Hct 33.8 L (37.2-46.3) % MCH 26.7 L (27.0-32.0) pg MCHC 29.3 L (32.0-37.0) g/dL RDW 17.8 H (11.5-14.5) % Carbon Dioxide 36.1 H (21.6-31.8) mmol/L BUN 34.0 H (9.0-27.0) mg/dL BUN/Creatinine Ratio 48.57 H (12.00-20.00) Ratio Glucose 211 H (70-110) mg/dL POC Glucose (mg/dL) 254 H (75-99) mg/dL Total Protein 5.0 L (6.2-8.2) g/dL Albumin 3.50 L (3.80-4.90) g/dL Globulin 1.5 L (1.6-3.3) g/dL 01/25/21 Range/Units 16:54 WBC (4.50-10.00) X 10*3/uL RBC (4.10-5.20) X 10*6/uL Hgb (12.0-15.0) g/dL Hct (37.2-46.3) % MCH (27.0-32.0) pg MCHC (32.0-37.0) g/dL RDW (11.5-14.5) % Carbon Dioxide (21.6-31.8) mmol/L BUN (9.0-27.0) mg/dL BUN/Creatinine Ratio (12.00-20.00) Ratio Glucose (70-110) mg/dL POC Glucose (mg/dL) 311 H (75-99) mg/dL Total Protein (6.2-8.2) g/dL Albumin (3.80-4.90) g/dL Globulin (1.6-3.3) g/dL Assessment and Plan Assessment: 1 Acute on chronic hypoxic and hypercapnic respiratory failure. The patient was initially hospitalized for COVID 19 related pneumonia and subsequently she had further decompensation breathing status due to a questionable seizure activity was witnessed this morning. Note that the patient's acid base status is improved considerably. the patient is on 5 liters high flow oxygen. Neurologically, the patient slowly recovering and she is much more awake but confused. No focal neurological deficits on today's evaluation. 2 Acute alteration of the mental status. Neurologically, the patient is improved considerably. No evidence of any seizure activity and the patient is currently on IV Keppra. EEG revealed no seizure activity. MRI of the brain revealed no acute intracranial processes. 3 Covid 19 related pneumonia, inflammatory markers are normal including LDH and CRP currently on steroids. The patient is on IV Solu-Medrol. 3 severe COPD with chronic hypoxic and hypercapnic respiratory failure typically on oxygen 3 history of a nasal cannula 4 History of deep venous thrombosis. 5 History of hypertension. 6 History of rheumatoid arthritis. 7 History of colitis. 8 Osteopenia/osteoporosis. 9 Chronic back pain. 10 History of restless leg syndrome. 11 History of vulvar cancer. 12 Previous history of bowel resection. 13 Multiple other medical problems and comorbidities. Plan The patient was seen and evaluated by Dr. Ibrahim Continue on 5 L nasal cannula for now. BiPAP as needed during the day and throughout the night We will discontinue IV Solu-Medrol, initiated prednisone taper Possibly return to [place] the morning DO NOT RESUSCITATE/DO NOT INTUBATE CODE STATUS We will continue to follow I, the cosigning physician, performed a history & physical examination of the patient. Lungs sounds lateral end expiratory wheezes, basilar crackles, diminished. Maintaining good O2 saturations in the 90s on 5 L/m per nasal cannula. I discussed the assessment and plan of care with my nurse practitioner, Symone Ohara. I attest to the above note as dictated by her.
[2021-01-25] MEDS: MULTIVITAMINS, THERA 1 EACH TAB PO SCH (17:39)
[2021-01-25] MEDS: MAGNESIUM OXIDE 400 MG TAB PO SCH (17:39)
[2021-01-25] MEDS: POTASSIUM CHLORIDE ER 10 MEQ TAB.ER.PRT PO SCH (17:42)
[2021-01-25] MEDS: MELATONIN 3 MG TABLET PO SCH (20:37)
[2021-01-25] MEDS: MONTELUKAST 10 MG TAB PO SCH (20:38)
[2021-01-25 23:16] LABS: Glucose,Whole Blood 180 mg/dL (75-99)
[2021-01-26 05:02] LABS: Glucose,Whole Blood 174 mg/dL (75-99)
[2021-01-26] MEDS: INSULIN ASPART (NovoLOG) 100 UNIT/ML VIAL SQ SCH ×2 (05:06→12:19)
[2021-01-26] MEDS: GABAPENTIN 100 MG CAP PO SCH ×2 (05:06→15:42)
[2021-01-26] MEDS: ALBUTEROL HFA INHALER INHALATION SCH ×3 (07:44→15:23)
[2021-01-26] MEDS: SYMBICORT 80-4.5 MCG INHALER INHALATION SCH (07:44)
[2021-01-26] MEDS: TIOTROPIUM 2.5 MCG INHALER INHALATION SCH (07:45)
[2021-01-26] MEDS: CHOLECALCIFEROL 25 MCG (1000 IU) TABLET PO SCH (07:59)
[2021-01-26] MEDS: ENOXAPARIN 40 MG/0.4 ML SYRINGE SQ SCH (07:59)
[2021-01-26] MEDS: PANTOPRAZOLE 40 MG TABLET PO SCH (08:00)
[2021-01-26] MEDS: ASCORBIC ACID 500 MG TAB PO SCH (08:00)
[2021-01-26] MEDS: THEOPHYLLINE 24 HOUR 400 MG CAP.ER.24H PO SCH (08:00)
[2021-01-26] MEDS: MORPHINE SULFATE ER 15 MG TABLET PO SCH (08:01)
[2021-01-26] MEDS: VERAPAMIL 80 MG TAB PO SCH ×3 (08:01→16:30)
[2021-01-26] MEDS: NYSTATIN 100,000 UNIT/ML SUSP 500,000 UNIT/5 ML CUP PO SCH ×3 (08:01→16:30)
[2021-01-26] MEDS: ZINC SULFATE 220 MG CAP PO SCH (08:01)
[2021-01-26] MEDS: LORATADINE 10 MG TAB PO SCH (08:02)
[2021-01-26] MEDS: DULoxetine HCL 30 MG CAPSULE.DR PO SCH (08:02)
[2021-01-26] MEDS: LIDOCAINE 5% PATCH TOPICAL SCH (08:04)
[2021-01-26] MEDS: FLUTICASONE 50MCG/SPRAY NASAL 16GM EA NOSTRIL SCH (08:04)
[2021-01-26] MEDS: levETIRAcetam IV 750 MG in SODIUM CHLORIDE 0.9% 100 ML IVPB SCH (08:10)
[2021-01-26] MEDS: MINERAL OIL-WHITE PETROLATUM 120 GM JAR TOPICAL SCH (08:10)
[2021-01-26] MEDS ORDERED: predniSONE 20 MG TAB PO SCH (09:00)
--- NOTE | 2021-01-26 09:59 | P.PN ---
Subjective Progress Note Date: 01/26/21 Patient was seen at bedside and she stated she don't better today compared to initial presentation. Per the patient and her she has not had any further seizure-like episodes. Objective - Vital Signs Vital signs: Vital Signs Temp 97.5 F L 01/26/21 05:51 Pulse 101 H 01/26/21 05:51 Resp 19 01/26/21 05:51 BP 173/71 01/26/21 05:51 Pulse Ox 97 01/26/21 05:51 Intake & Output 01/25/21 01/26/21 01/26/21 18:59 06:59 18:59 Intake Total 480 Output Total 300 1000 Balance 180 -1000 Intake: Oral 480 Output: Urine 300 1000 Other: Voiding Method Indwelling Catheter Indwelling Catheter - Exam GENERAL: The patient is lying in bed and is not in acute distress. NEUROLOGICAL: Higher mental function: The patient is awake, alert, oriented to self and place. Regarding the year she stated it was 1984. Patient is able to name objects correctly (pen, watch and comb). Patient is following commands. Was able to repeat phrase "It is a beautiful and james day outside" correctly. No neglect. Cranial nerves: The pupils are round, equal and reactive to light and accommodation. Visual guzman are full to confrontation throughout. Extraocular movement is intact no nystagmus is noted. Facial sensation is normal to touch throughout. The facial strength is normal throughout. Hearing is severely decreased bilaterally to hand rub. Tongue is midline and moved [id number] without any difficulty. No dysarthria is noted. Shoulder shrug is normal bilaterally. Motor: Gait is deferred. The strength is lift all extremities above gravity without drift (upper > lowers. Lowers limited because of pain). Normal tone and bulk. Sensation: Sensation is normal to touch throughout. Plantars are downgoing bilaterally. - Labs CBC & Chem 7: 01/25/21 05:34 01/25/21 05:34 Labs: Abnormal Lab Results - Last 24 Hours (Table) 01/25/21 01/25/21 01/25/21 Range/Units 05:34 11:42 16:54 Carbon Dioxide 36.1 H (21.6-31.8) mmol/L BUN 34.0 H (9.0-27.0) mg/dL BUN/Creatinine Ratio 48.57 H (12.00-20.00) Ratio Glucose 211 H (70-110) mg/dL POC Glucose (mg/dL) 254 H 311 H (75-99) mg/dL Total Protein 5.0 L (6.2-8.2) g/dL Albumin 3.50 L (3.80-4.90) g/dL Globulin 1.5 L (1.6-3.3) g/dL 01/25/21 01/26/21 Range/Units 23:14 05:01 Carbon Dioxide (21.6-31.8) mmol/L BUN (9.0-27.0) mg/dL BUN/Creatinine Ratio (12.00-20.00) Ratio Glucose (70-110) mg/dL POC Glucose (mg/dL) 180 H 174 H (75-99) mg/dL Total Protein (6.2-8.2) g/dL Albumin (3.80-4.90) g/dL Globulin (1.6-3.3) g/dL Assessment and Plan Assessment: * New onset seizure, possible due to hypercapnia, possible post ictal state, now resolved. Possibly seizure due to COVID 19. * Altered mental status Probable underlying toxic metabolic encephalopathy and hypercapnia. * Acute on chronic hypoxic and hypercapnic respiratory failure. * Covid 19 pneumonia. Plan: * Patient's level of consciousness and alertness is now normal, but she continues to have altered mental status, with some perseveration, questionable slightly decreased spontaneous movement on the left. CVA needs to be ruled out. * CT head showed no acute process. * CTA of head and neck showed no stenosis, occlusion or aneurysm involving major cervical or intracranial vessels. * MR the brain is reported as age-related atrophic and chronic small vessel ischemic changes. No acute intracranial process at this time. * Pre-liminary EEG: It is normal. There are no focal slowing, profound discharges or seizure in the EEG. * On Keppra 750 mg IV twice a day and can be switched to PO. Will not modify the antiepileptic drug. I recommended the patient follows up with a neurologist and if she continues to be seizure-free then recommend that titrating the dose as an outpatient. * The patient needs to follow-up with a neurologist as an outpatient within 1-2 weeks. * There is no further neurological workup needed. Plan was discussed with the patient's nurse. Gaudencio Cade MD Neuro-Hospitalist Time with Patient: Less than 30
[2021-01-26 11:41] LABS: Glucose,Whole Blood 186 mg/dL (75-99)
--- NOTE | 2021-01-26 12:15 | P.DS ---
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 Patient had recent admission 12/30/20 through 01/05/21 for treatment of acute on chronic hypoxic respiratory failure with Klebsiella pneumonia and sputum culture positive for Erica albicans. Patient was discharged to [facility] for continued PT/OT therapy and was discharged home with prescriptions for continued antibiotics: Augmentin as well as a prednisone taper. She presented back due to excessive fatigue where all she has done his sleep, felt extremely weak, decreased appetite, and has noticed an increase in her shortness of breath. No increases in or changes in her chronic cough, stating she has a once in a while productive cough of thick yellow phlegm. Secondary to these complaints, the provider at [facility] ordered a Covid t est on patient in which patient tested positive and was sent to the hospital for evaluation. In the emergency department, patient was found to have significant leukocytosis with a WBC count of 20.9 with a left shift with neutrophils of 18.7, hemoglobin of 9.9, elevated d-dimer 1.12, hyponatremia with sodium of 133, hypochloremia with chloride of 86, a carbon dioxide of 47, elevated LDH of 906, elevated CRP of 211.7, pro-calcitonin of 0.61, and troponin 0.019. Urinalysis completed negative for infection. Chest x-ray showed right lower lobe consolidation. CTA negative for acute PE revealing scattered infiltrates with larger more focal consolidations in the right middle dependent lower lobe. Patient was admitted, was started on steroids and remdisivir for Covid pneumonia. Antibiotics were added due to suspicion of superimposed bacterial pneumonia. Patient also received IV steroids due to history of COPD as well as Lasix IV due to history of pulmonary hypertension. During the hospitalization and all she was sitting on the chair she reported feeling funny. Following that, she lost consciousness. She had some up rolling of her eyes. The patient's was given Narcan 0.42 and following that the patient had generalized tonic-clonic seizures. At that point, the patient was given Ativan a total of 4 mg IV. She became somnolent and lethargic and she was found to be significant respiratory distress. She was transferred to the ICU and was placed on a BiPAP at a pressure of 16/5 with an FiO2 of 60%. The blood gases was done while BiPAP and the patient's pH was 7.19 with a pCO2 of 11 and pO2 136. Chest x-ray at that time was consistent with COPD and Covid 19 related pneumonia. Due to suspicion of seizure she was seen by neurology and was started on Keppra. Workup with EEG and MRI brain was unremarkable. Patient also has significant delirium during the hospitalization due to all of the issues above. She was not making sense of what she was saying and was not answering questions coherently. At that time steroids were weaned down and her mental status improved. This could be steroid induced delirium. . On the day of discharge patient was only requiring 5 L of oxygen per nasal cannula, her baseline is 3 L. This showed be weaned down gradually over the next few days/weeks. In addition I think she should remain on 40 mg of prednisone until seen by pulmonary in the office which should occur within 1-2 weeks. Discussed with care management. Patient should also follow up with neurology as well as her primary care physician. Time for discharge 35 minutes. Patient Condition at Discharge: Fair Plan - Discharge Summary Discharge Rx Participant: Yes New Discharge Prescriptions: New levETIRAcetam [Keppra] 750 mg PO Q12HR 30 Days #60 tab predniSONE [Deltasone] 40 mg PO DAILY 20 Days #20 tab Levofloxacin [Levaquin] 750 mg PO Q24H #3 tab Continue rOPINIRole HCL [Requip] 0.5 mg PO HS@2100 Cholecalciferol [Vitamin D3 (25 Mcg = 1000 Iu)] 25 mcg PO DAILY@0700 Ipratropium-Albuterol Nebulize [Duoneb 0.5 mg-3 mg/3 ml Soln] 3 ml INHALATION RT-Q4H Montelukast [Singulair] 10 mg PO HS #30 tab Magnesium Oxide [Mag-Ox] 400 mg PO DAILY@1700 Loratadine [Claritin] 10 mg PO DAILY@0800 Melatonin 3 mg PO HS Sodium Chloride [Dupage] 2 spray EA NOSTRIL Q2H PRN PRN Reason: Dry Nasal Passages Acetaminophen Tab [Tylenol] 650 mg PO Q4H PRN PRN Reason: Pain Fluticasone Nasal [place] [Flonase Nasal [place]] 1 spr EA NOSTRIL DAILY@0800 Theophylline 24 Hour [Sekou-24] 400 mg PO DAILY@0800 Pantoprazole Sodium [Protonix] 40 mg PO DAILY@0600 Potassium Chloride 8 meq PO DAILY@1700 Multivitamins, Thera [Multivitamin (formulary)] 1 tab PO DAILY@1700 Ipratropium-Albuterol Nebulize [Duoneb 0.5 mg-3 mg/3 ml Soln] 3 ml INHALATION RT-QID PRN ml PRN Reason: Shortness Of Breath Or Wheezing guaiFENesin SYRUP 100MG/5ML [Robitussin] 200 mg PO Q6H PRN ml PRN Reason: Cough ALPRAZolam [Xanax] 0.25 mg PO TID PRN #10 tab PRN Reason: Anxiety Na Phos,M-B/Na Phos,Di-Ba [Fleet Adult] 133 ml RECTAL DAILY PRN PRN Reason: Constipation bisacodyL [Bisacodyl] 10 mg RECTAL DAILY PRN PRN Reason: Constipation Glucerna Shake 120 ml PO BID@0800,2100 Eucerin Cream 1 applic TOPICAL BID Furosemide [Lasix] 20 mg PO DIRECTED DULoxetine HCL [Cymbalta] 30 mg PO DAILY@0800 Nystatin 100,000 Unit/ml Susp [Mycostatin Oral Susp] 500,000 unit PO TID@0800,1200,1700 Gabapentin [Neurontin] 100 mg PO TID@0600,1400,2200 INSULIN ASPART (NovoLOG) [NovoLOG (formulary)] See Protocol SQ ACHS Lidocaine 5% Patch [Lidoderm 5% Patch] 1 patch TOPICAL DAILY Furosemide [Lasix] 40 mg PO DIRECTED Verapamil [Isoptin] 80 mg PO TID@0800,1200,1700 Morphine Sulfate [Ms Contin] 15 mg PO BID@08,2099 Magnesium Hydroxide [Milk of Magnesia Concentrate] 7,200 mg PO Q48H PRN PRN Reason: Constipation Budesonide [Pulmicort] 1 mg INHALATION RT-BID@0800,1700 Discontinued Amoxic-Pot Clav 875-125Mg [Augmentin 875-125] 1 tab PO Q12HR 7 Days #14 tab predniSONE 5 mg PO DIRECTED predniSONE See Taper PO DIRECTED Discharge Medication List rOPINIRole HCL [Requip] 0.5 mg PO HS@209903/24/20 [History] Cholecalciferol [Vitamin D3 (25 Mcg = 1000 Iu)] 25 mcg PO DAILY@0704/08/20 [History] Ipratropium-Albuterol Nebulize [Duoneb 0.5 mg-3 mg/3 ml Soln] 3 ml INHALATION RT-Q4H 04/18/20 [History] Montelukast [Singulair] 10 mg PO HS #30 tab 04/22/20 [Rx] Magnesium Oxide [Mag-Ox] 400 mg PO DAILY@169909/15/20 [History] Loratadine [Claritin] 10 mg PO DAILY@79910/11/20 [History] Melatonin 3 mg PO HS 10/11/20 [History] Acetaminophen Tab [Tylenol] 650 mg PO Q4H PRN 12/30/20 [History] Fluticasone Nasal [place] [Flonase Nasal [place]] 1 spr EA NOSTRIL DAILY@0812/30/20 [History] Multivitamins, Thera [Multivitamin (formulary)] 1 tab PO DAILY@169912/30/20 [History] Pantoprazole Sodium [Protonix] 40 mg PO DAILY@59912/30/20 [History] Potassium Chloride 8 meq PO DAILY@169912/30/20 [History] Sodium Chloride [Dupage] 2 spray EA NOSTRIL Q2H PRN 12/30/20 [History] Theophylline 24 Hour [Sekou-24] 400 mg PO DAILY@79912/30/20 [History] ALPRAZolam [Xanax] 0.25 mg PO TID PRN #10 tab 01/05/21 [Rx] Ipratropium-Albuterol Nebulize [Duoneb 0.5 mg-3 mg/3 ml Soln] 3 ml INHALATION RT-QID PRN ml 01/05/21 [Rx] guaiFENesin SYRUP 100MG/5ML [Robitussin] 200 mg PO Q6H PRN ml 01/05/21 [Rx] Budesonide [Pulmicort] 1 mg INHALATION RT-BID@0800,1700 01/15/21 [History] DULoxetine HCL [Cymbalta] 30 mg PO DAILY@0800 01/15/21 [History] Eucerin Cream 1 applic TOPICAL BID 01/15/21 [History] Furosemide [Lasix] 20 mg PO DIRECTED 01/15/21 [History] Furosemide [Lasix] 40 mg PO DIRECTED 01/15/21 [History] Gabapentin [Neurontin] 100 mg PO TID@0600,1400,2200 01/15/21 [History] Glucerna Shake 120 ml PO BID@0800,2100 01/15/21 [History] INSULIN ASPART (NovoLOG) [NovoLOG (formulary)] See Protocol SQ ACHS 01/15/21 [History] Lidocaine 5% Patch [Lidoderm 5% Patch] 1 patch TOPICAL DAILY 01/15/21 [History] Magnesium Hydroxide [Milk of Magnesia Concentrate] 7,200 mg PO Q48H PRN 01/15/21 [History] Morphine Sulfate [Ms Contin] 15 mg PO BID@0800,2100 01/15/21 [History] Na Phos,M-B/Na Phos,Di-Ba [Fleet Adult] 133 ml RECTAL DAILY PRN 01/15/21 [History] Nystatin 100,000 Unit/ml Susp [Mycostatin Oral Susp] 500,000 unit PO TID@0800,1200,1700 01/15/21 [History] Verapamil [Isoptin] 80 mg PO TID@0800,1200,1700 01/15/21 [History] bisacodyL [Bisacodyl] 10 mg RECTAL DAILY PRN 01/15/21 [History] Levofloxacin [Levaquin] 750 mg PO Q24H #3 tab 01/26/21 [Rx] levETIRAcetam [Keppra] 750 mg PO Q12HR 30 Days #60 tab 01/26/21 [Rx] predniSONE [Deltasone] 40 mg PO DAILY 20 Days #20 tab 01/26/21 [Rx] Follow up Appointment(s)/Referral(s): Kareem Ayon, [NON-STAFF] - As Needed Gavin Riggs [STAFF PHYSICIAN] - As Needed
[2021-01-26] MEDS: LEVOFLOXACIN 750 MG TAB PO SCH (12:18)
[2021-01-26 14:43] VITALS: BP 135/58; PULSE 98; RESP 18; TEMP 97.8
[2021-01-26] MEDS: ALPRAZolam 0.25 MG TAB PO PRN (16:30)
[2021-01-26] MEDS: MAGNESIUM OXIDE 400 MG TAB PO SCH (16:30)
[2021-01-26] MEDS: MULTIVITAMINS, THERA 1 EACH TAB PO SCH (16:30)
[2021-01-26] MEDS: POTASSIUM CHLORIDE ER 10 MEQ TAB.ER.PRT PO SCH (16:30)
== END 2021-01-26 17:00 | DRG 177 ==
LOC: EC 10:30 → 4SSUR 14:05 → 2ORWHC 01-19 02:12 → 4SSUR 01-19 02:12 → 2SICU 01-21 10:05 → 4SSUR 01-23 12:46
PROVIDERS: ADMIT Internal Medicine; ATTEND Internal Medicine
PROC: 8E0ZXY6 Isolation (ICD-10-PCS; 2021-01-15)
PROC: XW033E5 Introduction of Remdesivir Anti-infective into Peripheral Vein, Percutaneous Approach, New Technology Group 5 (ICD-10-PCS; principal; 2021-01-16)
PROC: 5A09557 Assistance with Respiratory Ventilation, Greater than 96 Consecutive Hours, Continuous Positive Airway Pressure (ICD-10-PCS; 2021-01-19)
PROC: 02HV33Z Insertion of Infusion Device into Superior Vena Cava, Percutaneous Approach (ICD-10-PCS; 2021-01-22)
DX: U07.1 COVID-19 (principal); J12.82 Pneumonia due to coronavirus disease 2019; G92 Toxic encephalopathy; J96.21 Acute and chronic respiratory failure with hypoxia; J96.22 Acute and chronic respiratory failure with hypercapnia; J44.0 Chronic obstructive pulmonary disease with (acute) lower respiratory infection; J44.1 Chronic obstructive pulmonary disease with (acute) exacerbation; E87.3 Alkalosis; E87.1 Hypo-osmolality and hyponatremia; Z66 Do not resuscitate; Z79.4 Long term (current) use of insulin; F90.9 Attention-deficit hyperactivity disorder, unspecified type; F41.9 Anxiety disorder, unspecified; Z87.891 Personal history of nicotine dependence; Z80.49 Family history of malignant neoplasm of other genital organs; E86.0 Dehydration; Z99.81 Dependence on supplemental oxygen; E87.8 Other disorders of electrolyte and fluid balance, not elsewhere classified; I27.81 Cor pulmonale (chronic); M06.9 Rheumatoid arthritis, unspecified; Z96.651 Presence of right artificial knee joint; Z90.710 Acquired absence of both cervix and uterus; Z90.721 Acquired absence of ovaries, unilateral; Z82.5 Family history of asthma and other chronic lower respiratory diseases; Z80.0 Family history of malignant neoplasm of digestive organs; Z86.718 Personal history of other venous thrombosis and embolism; Z90.49 Acquired absence of other specified parts of digestive tract; Z85.44 Personal history of malignant neoplasm of other female genital organs; M81.0 Age-related osteoporosis without current pathological fracture; H91.90 Unspecified hearing loss, unspecified ear; G89.29 Other chronic pain; M54.9 Dorsalgia, unspecified; E66.9 Obesity, unspecified; G25.81 Restless legs syndrome; Z68.35 Body mass index [BMI] 35.0-35.9, adult; I10 Essential (primary) hypertension; T38.0X5A Adverse effect of glucocorticoids and synthetic analogues, initial encounter; Z79.51 Long term (current) use of inhaled steroids; Z79.01 Long term (current) use of anticoagulants; Z78.9 Other specified health status; Z85.038 Personal history of other malignant neoplasm of large intestine
CPT/HCPCS: 36410; 36415; 36600; 70450; 70496; 70498; 70551; 71045; 71275; 76937; 80048; 80053; 80198; 81001; 82550; 82728; 82805; 83605; 83615; 83735; 83880; 84100; 84145; 84484; 85025; 85027; 85379; 85610; 85730; 86140; 87040; 87070; 87205; 93005; 94640; 94660; 94760; 95816; 96374; 96375; 99291

== ENCOUNTER 2021-02-19 11:30 | Inpatient (IN) | payer MEDICARE, OTHER ==
[2021-02-19] MEDS ORDERED: ALBUTEROL HFA INHALER INHALATION PRN (11:34)
[2021-02-19] MEDS ORDERED: ALBUTEROL HFA INHALER INHALATION STA (11:34)
--- NOTE | 2021-02-19 11:39 | ED ---
General Adult HPI - General Stated complaint: Diff Breathing Time Seen by Provider: 02/19/21 11:34 Source: patient, EMS, RN notes reviewed, old records reviewed Mode of arrival: EMS Limitations: no limitations - History of Present Illness Initial comments: Patient is a pleasant 65-year-old female presenting to the emergency department with difficulty breathing. Onset of symptoms was a couple of days ago. Patient does have cough with productive yellow sputum. Symptoms are similar to previous COPD. senior care found temporal 99.3 and did give Tylenol. They did put patient on BiPAP then switched to nonrebreather. EMS states patient is more alert than she was earlier. Patient denies chest pain. Patient does admit to having some leg swelling however states this is chronic and unchanged for her. - Related Data Home Medications Medication Instructions Recorded Confirmed rOPINIRole HCL [Requip] 0.5 mg PO HS@2100 03/24/20 02/19/21 Cholecalciferol [Vitamin D3 (25 1,000 units PO DAILY@0800 04/08/20 02/19/21 Mcg = 1000 Iu)] Magnesium Oxide [Mag-Ox] 400 mg PO DAILY@0800 09/15/20 02/19/21 Loratadine [Claritin] 10 mg PO DAILY@0800 10/11/20 02/19/21 Melatonin 3 mg PO HS@2100 10/11/20 02/19/21 Acetaminophen Tab [Tylenol] 650 mg PO Q4H PRN 12/30/20 02/19/21 Fluticasone Nasal [place] [Flonase 1 spr EA NOSTRIL DAILY@0800 12/30/20 02/19/21 Nasal [place]] Multivitamins, Thera [Multivitamin 1 tab PO DAILY@1700 12/30/20 02/19/21 (formulary)] Pantoprazole Sodium [Protonix] 40 mg PO DAILY@0600 12/30/20 02/19/21 Potassium Chloride 8 meq PO DAILY@169912/30/20 02/19/21 Sodium Chloride [[place]] 2 spray EA NOSTRIL Q2H PRN 12/30/20 02/19/21 Theophylline 24 Hour [Eskou-24] 400 mg PO DAILY@0800 12/30/20 02/19/21 Budesonide [Pulmicort] 1 mg INHALATION RT-BID@0800,1700 01/15/21 02/19/21 DULoxetine HCL [Cymbalta] 30 mg PO DAILY@0800 01/15/21 02/19/21 Gabapentin [Neurontin] 100 mg PO TID@0600,1400,2200 01/15/21 02/19/21 Glucerna Shake 120 ml PO TID@0800,1200,1700 01/15/21 02/19/21 INSULIN ASPART (NovoLOG) [NovoLOG See Protocol SQ ACHS 01/15/21 02/19/21 (formulary)] Lidocaine 5% Patch [Lidoderm 5% 1 patch TOPICAL DAILY@0800 01/15/21 02/19/21 Patch] Magnesium Hydroxide [Milk of 7,200 mg PO Q48H PRN 01/15/21 02/19/21 Magnesia Concentrate] Morphine Sulfate [Ms Contin] 15 mg PO BID@0800,2100 01/15/21 02/19/21 Na Phos,M-B/Na Phos,Di-Ba [Fleet 133 ml RECTAL DAILY PRN 01/15/21 02/19/21 Adult] Verapamil [Isoptin] 80 mg PO TID@0800,1200,1700 01/15/21 02/19/21 bisacodyL [Bisacodyl] 10 mg RECTAL DAILY PRN 01/15/21 02/19/21 ALPRAZolam [Xanax] 0.5 mg PO TID PRN 02/19/21 02/19/21 Furosemide [Lasix] 40 mg PO BID@0600,1400 02/19/21 02/19/21 Montelukast [Singulair] 10 mg PO HS@209902/19/21 02/19/21 acetaZOLAMIDE [Diamox] 250 mg PO BID@0800,1700 02/19/21 02/19/21 levETIRAcetam [Keppra] 750 mg PO BID@0800,2100 02/19/21 02/19/21 predniSONE 10 mg PO DAILY@0800 02/19/21 02/19/21 Previous Rx's Medication Instructions Recorded Ipratropium-Albuterol Nebulize 3 ml INHALATION RT-QID PRN ml 01/05/21 [Duoneb 0.5 mg-3 mg/3 ml Soln] guaiFENesin SYRUP 100MG/5ML 200 mg PO Q6H PRN ml 01/05/21 [Robitussin] Allergies Allergy/AdvReac Type Severity Reaction Status Date / Time infliximab [From Remicade] Allergy Dyspnea/HIV Verified 02/19/21 12:08 ES propoxyphene [From Darvon] Allergy Rash/Hives Verified 02/19/21 12:08 adhesive tape AdvReac "is hard Verified 02/19/21 12:08 on skin" Review of Systems ROS Statement: Those systems with pertinent positive or pertinent negative responses have been documented in the HPI. ROS Other: All systems not noted in ROS Statement are negative. Constitutional: Reports: as per HPI Eyes: Denies: eye pain ENT: Denies: ear pain Respiratory: Reports: as per HPI, cough, dyspnea Cardiovascular: Denies: chest pain Endocrine: Reports: fatigue Gastrointestinal: Denies: abdominal pain Genitourinary: Denies: dysuria Musculoskeletal: Denies: back pain Skin: Denies: rash Neurological: Denies: weakness Past Medical History Past Medical History: Cancer, COPD, Deep Vein Thrombosis (DVT), Hypertension, Pneumonia, Rheumatoid Arthritis (RA) Additional Past Medical History / Comment(s): hearing difficulty currently, colitis, osteopenia, hx cancer of appendix, uses oxygen 2L continuous. chronic back pain, restless leg, recent admission for exacerbation of COPD. 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 Colonoscopy 2016. pain procedure at [facility] with Dr Ty. TAD with unilateral oophorectomy 1983. Partial vulvectomy in 2000. Past Anesthesia/Blood Transfusion Reactions: No Reported Reaction Additional Past Anesthesia/Blood Transfusion Reaction / Comment(s): states is not supposed to have general anesthesia R/T awaiting lung transplant Past Psychological History: ADD/ADHD, Anxiety Additional Psychological History / Comment(s): . Smoking Status: Former smoker Past Alcohol Use History: None Reported Additional Past Alcohol Use History / Comment(s): Pt. states she quit smoking in 1999. smoked 1-1 1/2 PPD, started smoking age 13. Past Drug Use History: None Reported Additional Drug Use History / Comment(s): Quit using Marijuana 04/2016. - Past Family History Father Family Medical History: Cancer, COPD Additional Family Medical History / Comment(s): COLON cancer Mother Family Medical History: Cancer Additional Family Medical History / Comment(s): ESOPHAGUS cancer Sister(s) Family Medical History: Cancer Additional Family Medical History / Comment(s): CERVICAL cancer General Exam Limitations: no limitations General appearance: alert, in no apparent distress Head exam: Present: normocephalic Eye exam: Present: normal appearance ENT exam: Present: normal oropharynx Neck exam: Present: normal inspection Respiratory exam: Present: rales, accessory muscle use Cardiovascular Exam: Present: regular rate, normal rhythm GI/Abdominal exam: Present: soft. Absent: tenderness Extremities exam: Present: pedal edema. Absent: calf tenderness Neurological exam: Present: alert, oriented X3 Psychiatric exam: Present: flat affect Skin exam: Present: normal color Course Vital Signs 02/19/21 02/19/21 02/19/21 11:32 12:06 13:00 Temperature 99.5 F Pulse Rate 105 H 98 97 Respiratory 26 H 24 24 Rate Blood Pressure 148/74 144/64 O2 Sat by Pulse 94 L 93 L 92 L Oximetry EKG Findings - EKG Comments: EKG Findings:: Sinus tachycardia with rate of 106. DC 118. QRS 68. QT 3:30. QTC 438. Normal axis. Normal QRS. No acute ST change. Some motion artifact is present. Procedures - ABG Interpretation Ph: 7.31 PCO2: 83.1 PO2: 65.7 Bicarbonate: 42.5 Medical Decision Making - Medical Decision Making Patient reevaluated. Patient family updated. Patient placed on BiPAP. Case was discussed with Dr. Calixto, covering for Dr. Owusu, who will admit covering for Dr. Causey. - Lab Data Result diagrams: 02/19/21 11:54 02/19/21 11:54 Lab Results 02/19/21 02/19/21 02/19/21 Range/Units 11:54 11:54 11:54 WBC 14.0 H (3.8-10.6) k/uL RBC 3.88 (3.80-5.40) m/uL Hgb 10.4 L (11.4-16.0) gm/dL Hct 33.7 L (34.0-46.0) % MCV 86.8 (80.0-100.0) fL MCH 26.7 (25.0-35.0) pg MCHC 30.8 L (31.0-37.0) g/dL RDW 19.2 H (11.5-15.5) % Plt Count 230 (150-450) k/uL MPV 9.3 Neutrophils % (Manual) 82 % Band Neuts % (Manual) 4 % Lymphocytes % (Manual) 9 % Monocytes % (Manual) 4 % Eosinophils % (Manual) 2 % Myelocytes % 1 % Neutrophils # (Manual) 12.00 H (1.3-7.7) k/uL Lymphocytes # (Manual) 1.26 (1.0-4.8) k/uL Monocytes # (Manual) 0.56 (0-1.0) k/uL Eosinophils # (Manual) 0.28 (0-0.7) k/uL Myelocytes # (Manual) 0.14 H (0) k/uL Nucleated RBCs 0 (0-0) /100 WBC Manual Slide Review Performed Polychromasia Present Hypochromasia Marked Poikilocytosis Slight Anisocytosis Slight PT (9.0-12.0) sec INR (<1.2) APTT (22.0-30.0) sec Sample Site ABG pH (7.35-7.45) ABG pCO2 (35-45) mmHg ABG pO2 (83-108) mmHg ABG HCO3 (21-25) mmol/L ABG Total CO2 (19-24) mmol/L ABG O2 Saturation (94-97) % ABG Base Excess mmol/L Parviz Test FiO2 % Sodium 133 L (137-145) mmol/L Potassium 3.3 L (3.5-5.1) mmol/L Chloride 89 L (98-107) mmol/L Carbon Dioxide 43 H* (22-30) mmol/L Anion Gap 1 mmol/L BUN 20 H (7-17) mg/dL Creatinine 0.87 (0.52-1.04) mg/dL Est GFR (CKD-EPI)AfAm 80 (>60 ml/min/1.73 sqM) Est GFR (CKD-EPI)NonAf 69 (>60 ml/min/1.73 sqM) Glucose 147 H (74-99) mg/dL Plasma Lactic Acid Osmani 0.8 (0.7-2.0) mmol/L Calcium 9.2 (8.4-10.2) mg/dL Magnesium 1.8 (1.6-2.3) mg/dL Total Bilirubin 0.6 (0.2-1.3) mg/dL AST 19 (14-36) U/L ALT 16 (4-34) U/L Alkaline Phosphatase 79 (38-126) U/L Lactate Dehydrogenase 835 H (313-618) U/L Troponin I (0.000-0.034) ng/mL C-Reactive Protein 30.5 H (<1.0) mg/dL NT-Pro-B Natriuret Pep pg/mL Total Protein 5.6 L (6.3-8.2) g/dL Albumin 3.2 L (3.5-5.0) g/dL Coronavirus (PCR) (Not Detectd) 02/19/21 02/19/21 02/19/21 Range/Units 11:54 11:54 11:59 WBC (3.8-10.6) k/uL RBC (3.80-5.40) m/uL Hgb (11.4-16.0) gm/dL Hct (34.0-46.0) % MCV (80.0-100.0) fL MCH (25.0-35.0) pg MCHC (31.0-37.0) g/dL RDW (11.5-15.5) % Plt Count (150-450) k/uL MPV Neutrophils % (Manual) % Band Neuts % (Manual) % Lymphocytes % (Manual) % Monocytes % (Manual) % Eosinophils % (Manual) % Myelocytes % % Neutrophils # (Manual) (1.3-7.7) k/uL Lymphocytes # (Manual) (1.0-4.8) k/uL Monocytes # (Manual) (0-1.0) k/uL Eosinophils # (Manual) (0-0.7) k/uL Myelocytes # (Manual) (0) k/uL Nucleated RBCs (0-0) /100 WBC Manual Slide Review Polychromasia Hypochromasia Poikilocytosis Anisocytosis PT (9.0-12.0) sec INR (<1.2) APTT (22.0-30.0) sec Sample Site ABG pH (7.35-7.45) ABG pCO2 (35-45) mmHg ABG pO2 (83-108) mmHg ABG HCO3 (21-25) mmol/L ABG Total CO2 (19-24) mmol/L ABG O2 Saturation (94-97) % ABG Base Excess mmol/L Parviz Test FiO2 % Sodium (137-145) mmol/L Potassium (3.5-5.1) mmol/L Chloride (98-107) mmol/L Carbon Dioxide (22-30) mmol/L Anion Gap mmol/L BUN (7-17) mg/dL Creatinine (0.52-1.04) mg/dL Est GFR (CKD-EPI)AfAm (>60 ml/min/1.73 sqM) Est GFR (CKD-EPI)NonAf (>60 ml/min/1.73 sqM) Glucose (74-99) mg/dL Plasma Lactic Acid Osmani (0.7-2.0) mmol/L Calcium (8.4-10.2) mg/dL Magnesium (1.6-2.3) mg/dL Total Bilirubin (0.2-1.3) mg/dL AST (14-36) U/L ALT (4-34) U/L Alkaline Phosphatase (38-126) U/L Lactate Dehydrogenase (313-618) U/L Troponin I 0.022 (0.000-0.034) ng/mL C-Reactive Protein (<1.0) mg/dL NT-Pro-B Natriuret Pep 400 pg/mL Total Protein (6.3-8.2) g/dL Albumin (3.5-5.0) g/dL Coronavirus (PCR) Not Detected (Not Detectd) 02/19/21 02/19/21 Range/Units 13:00 13:38 WBC (3.8-10.6) k/uL RBC (3.80-5.40) m/uL Hgb (11.4-16.0) gm/dL Hct (34.0-46.0) % MCV (80.0-100.0) fL MCH (25.0-35.0) pg MCHC (31.0-37.0) g/dL RDW (11.5-15.5) % Plt Count (150-450) k/uL MPV Neutrophils % (Manual) % Band Neuts % (Manual) % Lymphocytes % (Manual) % Monocytes % (Manual) % Eosinophils % (Manual) % Myelocytes % % Neutrophils # (Manual) (1.3-7.7) k/uL Lymphocytes # (Manual) (1.0-4.8) k/uL Monocytes # (Manual) (0-1.0) k/uL Eosinophils # (Manual) (0-0.7) k/uL Myelocytes # (Manual) (0) k/uL Nucleated RBCs (0-0) /100 WBC Manual Slide Review Polychromasia Hypochromasia Poikilocytosis Anisocytosis PT 9.8 (9.0-12.0) sec INR 0.9 (<1.2) APTT 22.9 (22.0-30.0) sec Sample Site r brach ABG pH 7.32 L (7.35-7.45) ABG pCO2 83 H* (35-45) mmHg ABG pO2 66 L (83-108) mmHg ABG HCO3 43 H* (21-25) mmol/L ABG Total CO2 45 H (19-24) mmol/L ABG O2 Saturation 90.2 L (94-97) % ABG Base Excess 16.3 mmol/L Parviz Test na FiO2 32 % Sodium (137-145) mmol/L Potassium (3.5-5.1) mmol/L Chloride (98-107) mmol/L Carbon Dioxide (22-30) mmol/L Anion Gap mmol/L BUN (7-17) mg/dL Creatinine (0.52-1.04) mg/dL Est GFR (CKD-EPI)AfAm (>60 ml/min/1.73 sqM) Est GFR (CKD-EPI)NonAf (>60 ml/min/1.73 sqM) Glucose (74-99) mg/dL Plasma Lactic Acid Osmani (0.7-2.0) mmol/L Calcium (8.4-10.2) mg/dL Magnesium (1.6-2.3) mg/dL Total Bilirubin (0.2-1.3) mg/dL AST (14-36) U/L ALT (4-34) U/L Alkaline Phosphatase (38-126) U/L Lactate Dehydrogenase (313-618) U/L Troponin I (0.000-0.034) ng/mL C-Reactive Protein (<1.0) mg/dL NT-Pro-B Natriuret Pep pg/mL Total Protein (6.3-8.2) g/dL Albumin (3.5-5.0) g/dL Coronavirus (PCR) (Not Detectd) - Radiology Data Radiology results: image reviewed (Chest x-ray concerning for patchy infiltrates) Critical Care Time Critical Care Time: Yes Total Critical Care Time: 34 Disposition Clinical Impression: COPD (chronic obstructive pulmonary disease), Acute respiratory failure, COVID- 19, Pneumonia Disposition: ADMITTED IP TO THIS [facility] Condition: Serious Is patient prescribed a controlled substance at d/c from ED?: No Referrals: Davin Causey DO [Primary Care Provider] - 1-2 days Decision Time: 14:03
[2021-02-19 12:24] LABS: Anisocytosis Slight; HCT 33.7 % (34.0-46.0); HGB 10.4 gm/dL (11.4-16.0); Hypochromasia Marked; MCH 26.7 pg (25.0-35.0); MCHC 30.8 g/dL (31.0-37.0); MCV 86.8 fL (80.0-100.0); Mean Platelet Volume 9.3; Platelet Count 230 k/uL (150-450); Poikilocytosis Slight; RBC 3.88 m/uL (3.80-5.40); RDW 19.2 % (11.5-15.5)
--- NOTE | 2021-02-19 12:27 | XR ---
EXAMINATION TYPE: XR chest 1V portable DATE OF EXAM: 02/19/2021 COMPARISON: Chest x-ray 02/17/2021 HISTORY: Pneumonia, difficulty breathing, suspected Covid 19 TECHNIQUE: Single frontal view of the chest is obtained. FINDINGS: Bilateral patchy airspace disease is present. Cardiac mediastinal silhouette is stable. Ao rta is dense. There is no evident pneumothorax or pleural effusion. There are overlying leads. Patien t is rotated. IMPRESSION: Findings consistent with Covid 19 infection, pneumonia
[2021-02-19 12:39] LABS: Albumin 3.2 g/dL (3.5-5.0); Calcium 9.2 mg/dL (8.4-10.2); Magnesium 1.8 mg/dL (1.6-2.3); Potassium 3.3 mmol/L (3.5-5.1); Total Bilirubin 0.6 mg/dL (0.2-1.3); Total Protein 5.6 g/dL (6.3-8.2)
[2021-02-19 13:07] LABS: Band Neutrophils % 4 %; Eosinophils # (M) 0.28 k/uL (0-0.7); Lymphocytes # (M) 1.26 k/uL (1.0-4.8); Monocytes # (M) 0.56 k/uL (0-1.0); Myelocytes # (M) 0.14 k/uL (0); Myelocytes % 1 %; Neutrophils % (M) 82 %; Nucleated Red Blood Cells 0 /100 WBC (0-0); Total Cells Counted 200
[2021-02-19 13:08] LABS: Polychromasia Present
[2021-02-19 13:24] LABS: C Reactive Protein 30.5 mg/dL (<1.0)
[2021-02-19 13:35] LABS: INR 0.9 (<1.2); Partial Thromboplastin Time 22.9 sec (22.0-30.0); Prothrombin Time 9.8 sec (9.0-12.0)
[2021-02-19 13:42] LABS: ABG Base Excess 16.3 mmol/L; ABG Oxygen Saturation 90.2 % (94-97); ABG PH 7.32 (7.35-7.45); ABG PO2 66 mmHg (83-108); ABG TCO2 45 mmol/L (19-24)
[2021-02-19 13:45] LABS: ABG HCO3 43 mmol/L (21-25); ABG PCO2 83 mmHg (35-45)
[2021-02-19] MEDS ORDERED: ALBUTEROL HFA INHALER INHALATION SCH (14:00)
[2021-02-19] MEDS ORDERED: IPRATROPIUM-ALBUTEROL 3 ML NEB INHALATION PRN (14:04)
[2021-02-19] MEDS ORDERED: PNEUMONIA PROTOCOL UTILIZED 1 EACH MISC PO PRN (14:04)
[2021-02-19] MEDS ORDERED: AZITHROMYCIN 500 MG in SODIUM CHLORIDE 0.9% 250 ML IVPB STA (14:07)
[2021-02-19] MEDS: PIPERACILLIN-TAZOBACTAM 3.375 GM in SODIUM CHLORIDE 0.9% 100 ML IVPB STA ×2 (14:14→14:19)
[2021-02-19] MEDS: SODIUM CHLORIDE 0.9% 1,000 ML IV SCH (14:18)
[2021-02-19] MEDS: methylPREDNISolone SOD SUCCI 125 MG/2 ML VIAL IV SCH ×2 (14:23→18:24)
[2021-02-19] MEDS: IPRATROPIUM-ALBUTEROL 3 ML NEB INHALATION SCH ×2 (17:20→19:34)
[2021-02-19] MEDS ORDERED: guaiFENesin SYRUP 100MG/5ML 200 MG/10 ML CUP PO PRN (18:03)
[2021-02-19] MEDS ORDERED: SODIUM CHLORIDE 0.65% NASAL SPRAY 44 ML BTL INTRANASAL PRN (18:03)
[2021-02-19] MEDS ORDERED: ALPRAZolam 0.5 MG TAB PO PRN (18:03)
[2021-02-19 18:39] LABS: Ferritin 101.3 ng/mL (10.0-291.0)
[2021-02-19] MEDS: ENOXAPARIN 40 MG/0.4 ML SYRINGE SQ SCH (18:45)
[2021-02-19] MEDS: BUDESONIDE 1 MG/2 ML NEBU INHALATION SCH (19:51)
[2021-02-19] MEDS: GABAPENTIN 100 MG CAP PO SCH (21:13)
[2021-02-19] MEDS: MELATONIN 3 MG TABLET PO SCH (21:13)
[2021-02-19] MEDS: MONTELUKAST 10 MG TAB PO SCH (21:13)
[2021-02-19] MEDS: PIPERACILLIN-TAZOBACTAM 3.375 GM in SODIUM CHLORIDE 0.9% 100 ML IVPB SCH (21:13)
--- NOTE | 2021-02-19 22:00 | HP ---
HISTORY AND PHYSICAL DATE OF SERVICE: 02/19/2021. CHIEF COMPLAINTS: Shortness of breath. HISTORY OF PRESENT ILLNESS: This 65-year-old woman with a past medical history of multiple medical problems including COPD, history of DVT, hypertension, hyperlipidemia, rheumatoid arthritis, hearing difficulties, being followed by Dr. Causey in the outpatient setting was admitted with shortness of breath. The patient was drowsy. The patient also complains of sputum. The patient was febrile in the skilled nursing. Patient started on BiPAP and the patient was sent to [facility] for further evaluation and treatment. There is no history of fever, rigors or chills. No history of headache, loss of consciousness, seizures at this time. The patient did have an ABG, which showed acute hypercarbic respiratory failure. The patient admitted for further evaluation and treatment. A Covid 19 test was negative. A chest x-ray done in the ER which was reviewed personally by me showed some evidence of bilateral pneumonia. The patient had recent Covid 19 pneumonia. PAST MEDICAL HISTORY: History of chronic obstructive pulmonary disease, history of DVT, history of hypertension, rheumatoid arthritis, recent Covid pneumonia. MEDICATIONS: Medications prior to admission include: Requip, Keppra, Robitussin, bisacodyl, Diamox, Isoptin Sekou-24, potassium chloride, Protonix, multivitamins, MS Contin, Singulair. Doses are reviewed. ALLERGIES: REMICADE, DARVON, ADHESIVE TAPES. Family history, social history and review of systems could not be taken because of the patient's change in mental status. PHYSICAL EXAMINATION: Pulse is 98, blood pressure 120/67, respiration 24, temp 98.2. Pulse ox 88 percent on BiPAP. HEENT: Conjunctivae normal. NECK: No JVD. CARDIOVASCULAR: S1, S2 muffled. RESPIRATIONS: Breath sounds diminished in the bases. Bilateral scattered rhonchi. No crackles. ABDOMEN: Soft, nontender. LEGS are no edema. NERVOUS SYSTEM: Diffusely weak. SKIN: No ulcers, rashes or bleeding. JOINTS: No active deforming arthropathy. LABS: WBC 14.8, hemoglobin 10.4, sodium 130, potassium 3.3. ASSESSMENT: 1. Acute bilateral pneumonia possibly gram-negative pneumonia, hospital-acquired pneumonia with sepsis. 2. Change in mental status, acute metabolic encephalopathy. 3. Acute hypoxic hypercarbic respiratory failure. 4. History of recent Covid-19 pneumonia. 5. Increased WBC. 6. Anemia, normocytic. 7. Hyponatremia. 8. Hypokalemia. 9. Elevated LDH. 10.Increased CRP. 11.History of chronic obstructive pulmonary disease. 12.History of deep vein thrombosis. 13.Hypertension. 14.History of pneumonia. 15.History rheumatoid arthritis. 16.History of CA of the appendix. 17.History of appendectomy. 18.History of bowel resection. 19.History of attention-deficit/hyperactivity disorder. 20.History of anxiety. 21.Remote history of nicotine dependence. 22.Obesity with body mass of 36.1. RECOMMENDATIONS AND DISCUSSION: In this 65-year-old woman who presented with multiple complex medical issues, we will monitor the patient closely. We will continue the current medications, management and symptomatic treatment. Broad-spectrum IV antibiotics. Steroids. Cultures. Otherwise consult Dr. Ibrahim. Guarded prognosis because of multiple complex medical issues. Further recommendations to follow. A copy of dictation will be forwarded to Dr. Causey who is the primary physician. MMODL / IJN: [id number] / MTDD
[2021-02-20] MEDS: methylPREDNISolone SOD SUCCI 125 MG/2 ML VIAL IV SCH ×4 (00:08→17:16)
[2021-02-20] MEDS: SODIUM CHLORIDE 0.9% 1,000 ML IV SCH ×3 (00:08→19:00)
[2021-02-20] MEDS: PANTOPRAZOLE 40 MG TABLET PO SCH (05:43)
[2021-02-20] MEDS: FUROSEMIDE 40 MG TAB PO SCH ×2 (05:43→13:02)
[2021-02-20] MEDS: GABAPENTIN 100 MG CAP PO SCH ×3 (05:43→20:06)
[2021-02-20] MEDS: PIPERACILLIN-TAZOBACTAM 3.375 GM in SODIUM CHLORIDE 0.9% 100 ML IVPB SCH ×3 (05:43→20:07)
[2021-02-20] MEDS: IPRATROPIUM-ALBUTEROL 3 ML NEB INHALATION SCH ×2 (07:01→11:00)
[2021-02-20] MEDS: BUDESONIDE 1 MG/2 ML NEBU INHALATION SCH (07:01)
--- NOTE | 2021-02-20 07:36 | XR ---
EXAMINATION TYPE: XR chest 1V DATE OF EXAM: 02/20/2021 COMPARISON: 02/19/2021 HISTORY: Pneumonia TECHNIQUE: Single frontal view of the chest is obtained. FINDINGS: Patient is rotated. No evident pneumothorax or pleural effusion. Cardiac mediastinal silho uette within normal limits. Patchy densities present in the bilateral lungs. IMPRESSION: Correlate for pneumonia
[2021-02-20] MEDS ORDERED: BUDESONIDE 1 MG/2 ML NEBU INHALATION SCH (08:00)
[2021-02-20] MEDS ORDERED: NON FORMULARY DRUG (Glucerna Shake 1 CAN Liquid) PO SCH (08:00)
[2021-02-20] MEDS: DULoxetine HCL 30 MG CAPSULE.DR PO SCH (09:09)
[2021-02-20] MEDS: THEOPHYLLINE 24 HOUR 400 MG CAP.ER.24H PO SCH (09:09)
[2021-02-20] MEDS: ENOXAPARIN 40 MG/0.4 ML SYRINGE SQ SCH (09:10)
[2021-02-20] MEDS: CHOLECALCIFEROL 25 MCG (1000 IU) TABLET PO SCH (09:10)
[2021-02-20] MEDS: acetaZOLAMIDE 250 MG TAB PO SCH ×2 (09:10→17:15)
[2021-02-20] MEDS: VERAPAMIL 80 MG TAB PO SCH ×3 (09:10→17:15)
[2021-02-20] MEDS: MAGNESIUM OXIDE 400 MG TAB PO SCH (09:10)
[2021-02-20] MEDS: LIDOCAINE 5% PATCH TOPICAL SCH (09:11)
[2021-02-20] MEDS: FLUTICASONE 50MCG/SPRAY NASAL 16GM EA NOSTRIL SCH (09:11)
[2021-02-20] MEDS: MAGNESIUM HYDROXIDE 2,400 MG/10 ML CUP PO PRN (09:12)
[2021-02-20] MEDS: bisacodyL 10 MG SUPP RECTAL PRN (10:29)
[2021-02-20] MEDS: TIOTROPIUM 2.5 MCG INHALER INHALATION SCH (11:13)
[2021-02-20] MEDS: ALBUTEROL HFA INHALER INHALATION SCH ×3 (11:14→18:48)
[2021-02-20] MEDS ORDERED: AZITHROMYCIN 500 MG in SODIUM CHLORIDE 0.9% 250 ML IVPB SCH (14:00)
--- NOTE | 2021-02-20 16:20 | P.CNPUL ---
History of Present Illness Consult date: 02/20/21 Requesting physician: Liliana Calixto Reason for consult: dyspnea, COPD Chief complaint: Shortness of breath History of present illness: This is a pleasant 65-year-old female patient who is well-known to our service for severe COPD. She's had multiple admissions. She was recently admitted in December with COPD exacerbation complicated by COVID-19. Following that discharge on 01/26/2021 she was sent to [facility]. She was represented here to the emergency room yesterday with complaints of increasing shortness of breath. CoVID screen this admission was negative. Chest x-ray revealed evidence of COPD. She was initially placed on BiPAP and became more awake and alert. She is seen today in consultation on the regular medical floor. Currently sitting up in bed. Awake and alert in no acute distress. Dyspneic with minimal exertion. Chest x-ray reveals bilateral patchy infiltrates. She is currently maintaining good O2 saturations in the low 90s on 3 L/m per nasal cannula. She 's afebrile. Hemodynamically stable. Rios blood gases revealed a PaO2 of 66, pCO2 83, pH 7.32. D-dimer 0.75. White count 14.0. Hemoglobin 10.4. Sodium 133. Potassium 3.3. Bicarb 43. Creatinine 0.87. Glucose 147. LDH 835. C- reactive protein 30.5. Calcitonin 0.81. [place] virus not detected. Review of Systems REVIEW OF SYSTEMS: CONSTITUTIONAL: Denies any recent significant weight loss or weight gain. EYES: Denies change in vision. EARS, NOSE, MOUTH, THROAT: Denies headaches, denies sore throat. CARDIOVASCULAR: Denies chest pain, palpitations or syncopal episodes. RESPIRATORY: Positive for shortness of breath, cough, congestion no hemoptysis. GASTROINTESTINAL: Denies change in appetite, denies abdominal pain GENITOURINARY: Denies hematuria, denies infections. MUSKULOSKELETAL: Denies pain, denies swelling. INTEGUMENTARY: Denies rash, denies eczema. NEUROLOGICAL: Denies recent memory loss, no recent seizure activity. PSYCHIATRIC: Denies anxiety, denies depression. HEMATOLOGIC/LYMPHATIC: Denies anemia, denies enlarged lymph nodes. Past Medical History Past Medical History: Cancer, COPD, Deep Vein Thrombosis (DVT), Hypertension, Pneumonia, Rheumatoid Arthritis (RA) Additional Past Medical History / Comment(s): hearing difficulty currently, colitis, osteopenia, hx cancer of appendix, uses oxygen 2L continuous. chronic back pain, restless leg, recent admission for exacerbation of COPD. 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 Colonoscopy 2016. pain procedure at [facility] with Dr Ty. TAD with unilateral oophorectomy 1983. Partial vulvectomy in 2000. Past Anesthesia/Blood Transfusion Reactions: No Reported Reaction Additional Past Anesthesia/Blood Transfusion Reaction / Comment(s): states is not supposed to have general anesthesia R/T awaiting lung transplant Past Psychological History: ADD/ADHD, Anxiety Smoking Status: Former smoker Past Alcohol Use History: None Reported Additional Past Alcohol Use History / Comment(s): Pt. states she quit smoking in 1999. smoked 1-1 1/2 PPD, started smoking age 13. Past Drug Use History: None Reported Additional Drug Use History / Comment(s): Quit using Marijuana 04/2016. - Past Family History Father Family Medical History: Cancer, COPD Additional Family Medical History / Comment(s): COLON cancer Mother Family Medical History: Cancer Additional Family Medical History / Comment(s): ESOPHAGUS cancer Sister(s) Family Medical History: Cancer Additional Family Medical History / Comment(s): CERVICAL cancer Medications and Allergies Home Medications Medication Instructions Recorded Confirmed Type rOPINIRole HCL [Requip] 0.5 mg PO HS@209903/24/20 02/19/21 History Cholecalciferol [Vitamin D3 (25 1,000 units PO DAILY@0800 04/08/20 02/19/21 History Mcg = 1000 Iu)] Magnesium Oxide [Mag-Ox] 400 mg PO DAILY@0800 09/15/20 02/19/21 History Loratadine [Claritin] 10 mg PO DAILY@0800 10/11/20 02/19/21 History Melatonin 3 mg PO HS@209910/11/20 02/19/21 History Acetaminophen Tab [Tylenol] 650 mg PO Q4H PRN 12/30/20 02/19/21 History Fluticasone Nasal [place] [Flonase 1 spr EA NOSTRIL DAILY@0800 12/30/20 02/19/21 History Nasal [place]] Multivitamins, Thera [Multivitamin 1 tab PO DAILY@1700 12/30/20 02/19/21 History (formulary)] Pantoprazole Sodium [Protonix] 40 mg PO DAILY@0600 12/30/20 02/19/21 History Potassium Chloride 8 meq PO DAILY@1700 12/30/20 02/19/21 History Sodium Chloride [[place]] 2 spray EA NOSTRIL Q2H PRN 12/30/20 02/19/21 History Theophylline 24 Hour [Sekou-24] 400 mg PO DAILY@0800 12/30/20 02/19/21 History Ipratropium-Albuterol Nebulize 3 ml INHALATION RT-QID PRN ml 01/05/21 02/19/21 Rx [Duoneb 0.5 mg-3 mg/3 ml Soln] guaiFENesin SYRUP 100MG/5ML 200 mg PO Q6H PRN ml 01/05/21 02/19/21 Rx [Robitussin] Budesonide [Pulmicort] 1 mg INHALATION RT-BID@0800,1700 01/15/21 02/19/21 History DULoxetine HCL [Cymbalta] 30 mg PO DAILY@0800 01/15/21 02/19/21 History Gabapentin [Neurontin] 100 mg PO TID@0600,1400,2200 01/15/21 02/19/21 History Glucerna Shake 120 ml PO TID@0800,1200,1700 01/15/21 02/19/21 History INSULIN ASPART (NovoLOG) [NovoLOG See Protocol SQ ACHS 01/15/21 02/19/21 History (formulary)] Lidocaine 5% Patch [Lidoderm 5% 1 patch TOPICAL DAILY@0800 01/15/21 02/19/21 History Patch] Magnesium Hydroxide [Milk of 7,200 mg PO Q48H PRN 01/15/21 02/19/21 History Magnesia Concentrate] Morphine Sulfate [Ms Contin] 15 mg PO BID@0800,2100 01/15/21 02/19/21 History Na Phos,M-B/Na Phos,Di-Ba [Fleet 133 ml RECTAL DAILY PRN 01/15/21 02/19/21 History Adult] Verapamil [Isoptin] 80 mg PO TID@0800,1200,1700 01/15/21 02/19/21 History bisacodyL [Bisacodyl] 10 mg RECTAL DAILY PRN 01/15/21 02/19/21 History ALPRAZolam [Xanax] 0.5 mg PO TID PRN 02/19/21 02/19/21 History Furosemide [Lasix] 40 mg PO BID@0600,1400 02/19/21 02/19/21 History Montelukast [Singulair] 10 mg PO HS@2100 02/19/21 02/19/21 History acetaZOLAMIDE [Diamox] 250 mg PO BID@0800,1700 02/19/21 02/19/21 History levETIRAcetam [Keppra] 750 mg PO BID@0800,2100 02/19/21 02/19/21 History predniSONE 10 mg PO DAILY@0800 02/19/21 02/19/21 History Allergies Allergy/AdvReac Type Severity Reaction Status Date / Time infliximab [From Remicade] Allergy Dyspnea/HIV Verified 02/19/21 12:08 ES propoxyphene [From Darvon] Allergy Rash/Hives Verified 02/19/21 12:08 adhesive tape AdvReac "is hard Verified 02/19/21 12:08 on skin" Physical Exam Vitals: Vital Signs Temp Pulse Pulse Resp BP BP Pulse Ox 02/20/21 14:10 98.2 F 95 16 118/66 94 L 02/20/21 14:00 98 F 93 16 134/69 94 L 02/20/21 10:00 98.2 F 95 16 114/52 92 L 02/20/21 07:15 84 18 02/20/21 07:03 88 18 90 L 02/20/21 06:00 18 90 L 02/20/21 05:34 97.6 F 91 20 126/68 97 02/20/21 02:00 97.6 F 87 18 129/68 94 L 02/19/21 20:35 87 18 02/19/21 19:51 88 02/19/21 19:38 98.3 F 86 91 16 125/62 94 L 02/19/21 18:26 97.4 F L 86 16 133/69 96 02/19/21 17:15 86 18 125/66 96 02/19/21 16:37 98.6 F 84 16 132/60 95 Intake and Output 02/20/21 02/20/21 02/20/21 06:59 14:59 22:59 Intake Total 532 Output Total 450 1100 Balance -450 -568 Intake: Oral 532 Output: Urine 450 1100 Other: # Bowel Movements 1 GENERAL EXAM: Alert, pleasant 65-year-old female patient, obese, cushingoid features, on 3 L nasal cannula, comfortable in no apparent distress. HEAD: Normocephalic. EYES: Normal reaction of pupils, equal size. NOSE: Clear with pink turbinates. THROAT: No erythema or exudates. NECK: No masses, no JVD. CHEST: No chest wall deformity. LUNGS: Equal air entry with bibasilar crackles. CVS: S1 and S2 normal with no audible murmur, regular rhythm. ABDOMEN: No hepatosplenomegaly, normal bowel sounds, no guarding or rigidity. SPINE: No scoliosis or deformity SKIN: No rashes CENTRAL NERVOUS SYSTEM: No focal deficits, tone is normal in all 4 extremities. EXTREMITIES: There is no peripheral edema. No clubbing, no cyanosis. Peripheral pulses are intact. Results - Laboratory Findings CBC and BMP: 02/19/21 11:54 02/19/21 11:54 ABG ABG pH 7.32 (7.35-7.45) L 02/19/21 13:38 ABG pCO2 83 mmHg (35-45) H* 02/19/21 13:38 ABG pO2 66 mmHg (83-108) L 02/19/21 13:38 ABG O2 Saturation 90.2 % (94-97) L 02/19/21 13:38 PT/INR, D-dimer PT 9.8 sec (9.0-12.0) 02/19/21 13:00 INR 0.9 (<1.2) 02/19/21 13:00 D-Dimer 0.75 mg/L FEU (<0.60) H 02/19/21 19:07 Abnormal lab findings: Abnormal Labs 02/19/21 02/19/21 02/19/21 11:54 11:54 11:54 WBC 14.0 H Hgb 10.4 L Hct 33.7 L MCHC 30.8 L RDW 19.2 H Neutrophils # (Manual) 12.00 H Myelocytes # (Manual) 0.14 H D-Dimer ABG pH ABG pCO2 ABG pO2 ABG HCO3 ABG Total CO2 ABG O2 Saturation Sodium 133 L Potassium 3.3 L Chloride 89 L Carbon Dioxide 43 H* BUN 20 H Glucose 147 H Lactate Dehydrogenase 835 H C-Reactive Protein 30.5 H Total Protein 5.6 L Albumin 3.2 L Procalcitonin 0.81 H 02/19/21 02/19/21 13:38 19:07 WBC Hgb Hct MCHC RDW Neutrophils # (Manual) Myelocytes # (Manual) D-Dimer 0.75 H ABG pH 7.32 L ABG pCO2 83 H* ABG pO2 66 L ABG HCO3 43 H* ABG Total CO2 45 H ABG O2 Saturation 90.2 L Sodium Potassium Chloride Carbon Dioxide BUN Glucose Lactate Dehydrogenase C-Reactive Protein Total Protein Albumin Procalcitonin - Diagnostic Findings Chest x-ray: image reviewed Assessment and Plan Assessment: 1 Acute on chronic hypercapnic/hypoxemic respiratory failure secondary to severe chronic obstructive pulmonary disease, residual pneumonia. Negative COVID-19 2 Recent admission for COVID-19 pneumonia 3 Chronic hypoxemic respiratory failure, currently on home O2 at 3 L. 4 History of deep venous thrombosis. 5 History of hypertension. 6 History of rheumatoid arthritis. 7 History of colitis. 8 Osteopenia/osteoporosis. 9 Chronic back pain. 10 History of restless leg syndrome. 11 History of vulvar cancer. 12 Previous history of bowel resection. 13 Poor overall functional performance based on the above-mentioned multiple comorbidities Plan: The patient was seen and evaluated by Dr. Ibrahim Chest x-ray, ABGs and labs reviewed Continue oxygen at 3 L/m per nasal cannula Utilize BiPAP as needed Continue the current treatment plan We will continue to follow and make further recommendations based on her clinical status Probable transfer back to the F in 24-48 hours I, the cosigning physician, performed a history & physical examination of the patient. Lungs sounds crackles in the bilateral posterior bases. Maintaining good O2 saturations in the 90s on 3 L/m per nasal cannula. I discussed the assessment and plan of care with my nurse practitioner, Symone Ohara. I attest to the above consultation as dictated by her. Time with Patient: Greater than 30
[2021-02-20 16:51] LABS: Glucose,Whole Blood 231 mg/dL (75-99)
[2021-02-20] MEDS: MULTIVITAMINS, THERA 1 EACH TAB PO SCH (17:15)
[2021-02-20] MEDS: POTASSIUM CHLORIDE ER 10 MEQ TAB.ER.PRT PO SCH (17:16)
[2021-02-20] MEDS: INSULIN ASPART (NovoLOG) 100 UNIT/ML VIAL SQ SCH ×2 (17:16→21:31)
--- NOTE | 2021-02-20 17:28 | CT ---
EXAMINATION TYPE: CT angio chest DATE OF EXAM: 02/20/2021 COMPARISON: 01/15/2021 HISTORY: elevated d-dimer CT DLP: 441.4 mGycm Automated exposure control for dose reduction was used. CONTRAST: Performed with IV Contrast, patient injected with 82cc mL of Isovue 370. There are 3-D post processed images. There is airspace consolidation and atelectasis in the right upper lobe. There is no mediastinal nory opathy. There are no hilar masses. There is some narrowing of the right upper lobe and right lower lo be bronchi. There is no evidence of filling defect in the pulmonary arteries. There is some patchy interstitial i nfiltrates in the upper and lower lobes bilaterally. There is some coalescent 3 x 1.5 cm infiltrate l eft midlung field. There is 1.5 cm pleural-based infiltrate lateral aspect of the lingula left upper lobe. There is no pleural effusion. Upper abdominal soft tissues are intact. Thoracic aorta appears i ntact. There is no aneurysm or dissection. There is T12 30% compression fracture. There is wedging of T8 and T7 and T6 vertebra up to 40%. Compr ession fractures unchanged. IMPRESSION: No evidence of pulmonary embolism. Extensive right upper lobe airspace consolidation and atelectasis similar to old exam. Patchy infiltr ates in the remaining lung guzman. There is improvement in the right lower lobe infiltrate compared t o old exam.
--- NOTE | 2021-02-20 18:32 | PN ---
PROGRESS NOTE DATE OF SERVICE: 02/20/2021 This 65-year-old woman who was admitted with acute bilateral pneumonia also had change in mental status. Patient with hypoxic respiratory failure. Patient on BiPAP yesterday. The patient is slightly feeling better today. Pulmonary is following the patient closely. The patient is on broad-spectrum IV antibiotics. COVID-19 is negative at this time. Most recent chest x-ray which was reviewed personally by me showed evidence of bilateral pneumonia. PAST MEDICAL HISTORY: Reviewed. REVIEW OF SYSTEMS: CARDIOVASCULAR SYSTEM: No angina. No palpitations. GI: As mentioned earlier. RESPIRATORY: As mentioned earlier. : No dysuria. NERVOUS SYSTEM: No numbness or weakness. CURRENT MEDICATIONS: Reviewed and include: Tylenol, Diamox, Ventolin, Zithromax, Rocephin, Cymbalta, Lovenox, Lasix, Neurontin, Keppra, Lidoderm, Solu-Medrol, multivitamins, Zosyn. PHYSICAL EXAMINATION: Patient is alert, oriented x. Pulse 95. Blood pressure 113/86, respirations 16, temperature 98.2, pulse ox 94% on 3 L. HEENT: Conjunctivae normal. NECK: No JVD. CARDIOVASCULAR: S1, S2 muffled. RESPIRATORY SYSTEM: Breath sounds diminished at the bases. Bilateral scattered rhonchi and crackles. ABDOMEN: Soft, nontender. LEGS are no edema, no swelling. LABS: WBC 14, hemoglobin 10.4. Sodium 138. Potassium 3.3, CO2 is 43. ASSESSMENT: 1. Acute bilateral pneumonia possibly gram-negative pneumonia with hospital-acquired pneumonia with sepsis and acute hypoxic hypercarbic respiratory failure on BiPAP. 2. Change in mental status, acute metabolic encephalopathy. 3. History of recent Covid 19 pneumonia. 4. Increased WBC. 5. Anemia normocytic. 6. Hyponatremia. 7. Hypokalemia. 8. Elevated LDH. 9. Elevated CRP. 10.History of chronic obstructive pulmonary disease. 11.History of deep vein thrombosis. 12.History of hypertension. 13.History of pneumonia. 14.History of rheumatoid arthritis. 15.History of CA of the appendix. 16.History of appendectomy. 17.History of bowel resection. 18.History of ADD/ADHD. 19.History of anxiety. 20.Remote history of nicotine dependence. 21.Obesity with body mass index of 36.1. RECOMMENDATIONS AND DISCUSSION: I recommend to continue current medications, symptomatic treatment. Continue with BiPAP. Continue repeat labs. Continue the broad-spectrum IV antibiotics. COVID-19 negative at this time. Guarded prognosis because of multiple complex medical issues. Further recommendations to follow. MMODL / IJN: [id number] /
[2021-02-20] MEDS: MONTELUKAST 10 MG TAB PO SCH (20:06)
[2021-02-20] MEDS: MELATONIN 3 MG TABLET PO SCH (20:07)
[2021-02-20 20:23] LABS: Glucose,Whole Blood 196 mg/dL (75-99)
[2021-02-21] MEDS: methylPREDNISolone SOD SUCCI 125 MG/2 ML VIAL IV SCH ×3 (00:31→13:09)
[2021-02-21] MEDS: PANTOPRAZOLE 40 MG TABLET PO SCH (05:42)
[2021-02-21] MEDS: FUROSEMIDE 40 MG TAB PO SCH ×2 (05:42→13:04)
[2021-02-21] MEDS: GABAPENTIN 100 MG CAP PO SCH ×3 (05:42→21:03)
[2021-02-21] MEDS: PIPERACILLIN-TAZOBACTAM 3.375 GM in SODIUM CHLORIDE 0.9% 100 ML IVPB SCH (05:43)
[2021-02-21 07:10] LABS: Glucose,Whole Blood 199 mg/dL (75-99)
[2021-02-21] MEDS: ALBUTEROL HFA INHALER INHALATION SCH ×4 (08:58→21:31)
[2021-02-21] MEDS: TIOTROPIUM 2.5 MCG INHALER INHALATION SCH (08:58)
[2021-02-21] MEDS: ENOXAPARIN 40 MG/0.4 ML SYRINGE SQ SCH (09:16)
[2021-02-21] MEDS: MAGNESIUM OXIDE 400 MG TAB PO SCH (09:16)
[2021-02-21] MEDS: CHOLECALCIFEROL 25 MCG (1000 IU) TABLET PO SCH (09:16)
[2021-02-21] MEDS: INSULIN ASPART (NovoLOG) 100 UNIT/ML VIAL SQ SCH ×4 (09:17→21:03)
[2021-02-21] MEDS: acetaZOLAMIDE 250 MG TAB PO SCH ×2 (09:18→17:01)
[2021-02-21] MEDS: DULoxetine HCL 30 MG CAPSULE.DR PO SCH (09:18)
[2021-02-21] MEDS: THEOPHYLLINE 24 HOUR 400 MG CAP.ER.24H PO SCH (09:18)
[2021-02-21] MEDS: VERAPAMIL 80 MG TAB PO SCH ×3 (09:18→17:01)
[2021-02-21] MEDS: LIDOCAINE 5% PATCH TOPICAL SCH (09:19)
[2021-02-21] MEDS: FLUTICASONE 50MCG/SPRAY NASAL 16GM EA NOSTRIL SCH (09:19)
[2021-02-21 11:49] LABS: Glucose,Whole Blood 368 mg/dL (75-99)
--- NOTE | 2021-02-21 16:21 | P.PN ---
Subjective Progress Note Date: 02/21/21 Principal diagnosis: Shortness of breath This is a pleasant 65-year-old female patient who is well-known to our service for severe COPD. She's had multiple admissions. She was recently admitted in December with COPD exacerbation complicated by COVID-19. Following that discharge on 01/26/2021 she was sent to [facility]. She was represented here to the emergency room yesterday with complaints of increasing shortness of breath. CoVID screen this admission was negative. Chest x-ray revealed evidence of COPD. She was initially placed on BiPAP and became more awake and alert. She is seen today in consultation on the regular medical floor. Currently sitting up in bed. Awake and alert in no acute distress. Dyspneic with minimal exertion. Chest x-ray reveals bilateral patchy infiltrates. She is currently maintaining good O2 saturations in the low 90s on 3 L/m per nasal cannula. She's afebrile. Hemodynamically stable. Rios blood gases revealed a PaO2 of 66, pCO2 83, pH 7.32. D-dimer 0.75. White count 14.0. Hemoglobin 10.4. Sodium 133. Potassium 3.3. Bicarb 43. Creatinine 0.87. Glucose 147. LDH 835. C-reactive protein 30.5. Calcitonin 0.81. [place] virus not detected. On 02/21/2021 patient seen in follow-up on medical surgical floor, she is resting comfortably in bed, she is currently on 3 L of oxygen breathing comfortably, she was on BiPAP earlier, with FiO2 of 40%, pulse ox on the BiPAP support was 97-98%, she has been afebrile, complaints of chest discomfort. Lung sounds reveal diffuse coarse crackles, no significant wheezing, at times she has a congested cough, with production. she has a history of recent covid in december. Chest x-ray showed patchy densities in the bilateral lungs. Her d-dimer was 0.75, and CT chest was completed showing no evidence of pulmonary embolism, and extensive right upper lobe airspace consolidation and atelectasis similar to old exam, patchy infiltrates in the remaining lung guzman, and there is improvement of the right lower lobe infiltrate compared to old exam. No new labs today. Patient remains on oral Lasix 40 mg twice daily, she is on Lovenox 40 mg daily, IV Solu-Medrol, and patient is improving she's feeling better, and she is close to her baseline. No fever or chills, blood cultures have shown no growth. Objective - Vital Signs Vital signs: Vital Signs Temp 98.3 F 02/21/21 14:00 Pulse 98 02/21/21 14:00 Resp 16 02/21/21 14:00 BP 130/68 02/21/21 14:00 Pulse Ox 97 02/21/21 14:00 Intake & Output 02/20/21 02/21/21 02/21/21 18:59 06:59 18:59 Intake Total 768 100 Output Total 1400 1100 1100 Balance -632 -1000 -1100 Intake: Oral 768 100 Output: Urine 1400 1100 1100 Other: Voiding Method Indwelling Catheter # Bowel Movements 1 1 - Exam GENERAL EXAM: Alert, very pleasant, 65-year-old white female, on 3 L of oxygen comfortable in no apparent distress. HEAD: Normocephalic/atraumatic. EYES: Normal reaction of pupils, equal size. Conjunctiva pink, sclera white. NOSE: Clear with pink turbinates. THROAT: No erythema or exudates. NECK: No masses, no JVD, no thyroid enlargement, no adenopathy. CHEST: No chest wall deformity. Symmetrical expansion. LUNGS: Equal air entry with diffuse coarse crackles, but no significant wheeze, rhonchi or dullness. CVS: Regular rate and rhythm, normal S1 and S2, no gallops, no murmurs, no rubs ABDOMEN: Soft, nontender. No hepatosplenomegaly, normal bowel sounds, no guarding or rigidity. EXTREMITIES: No clubbing, mild generalized no cyanosis, 2+ pulses and upper and lower extremities. MUSCULOSKELETAL: Muscle strength and tone normal. SPINE: No scoliosis or deformity SKIN: No rashes CENTRAL NERVOUS SYSTEM: Alert and oriented -3. No focal deficits, tone is normal in all 4 extremities. PSYCHIATRIC: Alert and oriented -3. Appropriate affect. Intact judgment and insight. - Labs CBC & Chem 7: 02/19/21 11:54 02/19/21 11:54 Labs: Abnormal Lab Results - Last 24 Hours (Table) 02/20/21 02/20/21 02/21/21 Range/Units 16:49 20:22 07:08 POC Glucose (mg/dL) 231 H 196 H 199 H (75-99) mg/dL 02/21/21 Range/Units 11:47 POC Glucose (mg/dL) 368 H (75-99) mg/dL Microbiology - Last 24 Hours (Table) 02/19/21 11:54 Blood Culture - Preliminary Blood No Growth after 48 hours 02/19/21 11:54 Blood Culture - Preliminary Blood No Growth after 48 hours Assessment and Plan Plan: Assessment: #1. Acute on chronic hypercapnic and hypoxemic respiratory failure secondary to severe COPD, and a residual COVID pneumonia. Tested negative for COVID-19 this admission #2. Recent admission for COVID-19 pneumonia #3. Chronic hypoxic respiratory failure related to advanced COPD, currently on home oxygen at 3 L #4. History of DVT #5. History of hypertension #6. History of rheumatoid arthritis #7. History of colitis #8. Osteopenia/osteoporosis #9. Chronic back pain #10. History of restless leg syndrome #11. History of bowel resection #12. History of vulvar cancer Plan: Patient is breathing easier, feeling better We will start the patient on doxycycline 100 mg twice daily Switch the IV Solu-Medrol to oral prednisone 20 mg daily Continue oral diuretics Continue current dose Lovenox Continue with BiPAP support at bedtime and as needed Stable from pulmonary perspective, she is close to her baseline We'll obtain follow-up labs and patient can be considered for transfer back to [facility] in the next 24 hours I performed a history & physical examination of the patient and discussed their management with my nurse practitioner, Savanah Mart. I reviewed the nurse practitioner's note and agree with the documented findings and plan of care. Lung sounds are positive for diffuse crackles. The findings and the impression was discussed with the patient. I attest to the documentation by the nurse practitioner. Time with Patient: Less than 30
[2021-02-21 16:36] LABS: Glucose,Whole Blood 326 mg/dL (75-99)
[2021-02-21] MEDS: POTASSIUM CHLORIDE ER 10 MEQ TAB.ER.PRT PO SCH (17:01)
[2021-02-21] MEDS: MULTIVITAMINS, THERA 1 EACH TAB PO SCH (17:01)
--- NOTE | 2021-02-21 17:17 | PN ---
PROGRESS NOTE DATE OF SERVICE: 02/21/2021 This 65-year-old woman who was admitted with acute bilateral pneumonia, possibly Gram- negative, also had acute hypoxic respiratory failure. Patient is confused. The patient was given BiPAP overnight. A CTA showed no evidence of pulmonary embolism and extensive right upper lobe consolidation, and patchy infiltrates on both lobes were also noted. CT scan findings were personally reviewed by me. Pulmonary is following the patient closely. Past medical history reviewed. Review of systems could not be taken; the patient is still confused. CURRENT MEDICATIONS: Tylenol, Diamox, vitamin D3, Vibramycin, Cymbalta, Lovenox, Lasix, Robitussin. Doses are reviewed. PHYSICAL EXAMINATION: Patient is alert and oriented x2. Pulse 98, blood pressure 130/60, respirations 16, temperature 98.2, pulse ox 97% on 40% FiO2. HEENT: Conjunctivae normal. NECK: No jugular venous distention. CARDIOVASCULAR SYSTEM: S1, S2 muffled. RESPIRATORY SYSTEM: Breath sounds diminished at the bases. A few scattered rhonchi and crackles. ABDOMEN: Soft, non-tender. LEGS: No edema. No swelling. NERVOUS SYSTEM: No focal deficit. LABS: WBC 14, hemoglobin 10.4. Sugar is elevated at 368. ASSESSMENT: 1. Acute bilateral pneumonia, possibly Gram-negative pneumonia with hospital-acquired pneumonia with possible sepsis and acute hypoxic hypercarbic respiratory failure, on BiPAP. 2. Chronic obstructive pulmonary disease, acute exacerbation. 3. Change in mental status, acute metabolic encephalopathy. 4. History of recent COVID-19 pneumonia. 5. Increased white count. 6. Anemia, normocytic. 7. Hyponatremia. 8. Hypokalemia. 9. Elevated LDH. 10.Elevated CRP. 11.History of chronic obstructive pulmonary disease. 12.History of deep vein thrombosis. 13.History of hypertension. 14.History of pneumonia. 15.History of rheumatoid arthritis. 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 17.History of appendectomy. 18.History of bowel resection. 19.History of attention deficit disorder, attention deficit hyperactivity disorder. 20.History of anxiety. 21.Remote history of nicotine dependence. 22.Obesity with body mass index of 36.1. RECOMMENDATIONS AND DISCUSSION: I recommend to continue current medications, continue with the monitoring, symptomatic treatment. Chest CTA was reviewed. Continue the bronchodilators. Continue with steroids. Monitor blood sugars closely. We will continue to monitor. Guarded prognosis. Further recommendations to follow. I would recommend monitoring blood pressure closely. MMODL / IJN: [id number] /
[2021-02-21 20:55] LABS: Glucose,Whole Blood 219 mg/dL (75-99)
[2021-02-21] MEDS: DOXYCYCLINE 100 MG CAP PO SCH (21:03)
[2021-02-21] MEDS: MONTELUKAST 10 MG TAB PO SCH (21:04)
[2021-02-21] MEDS: MELATONIN 3 MG TABLET PO SCH (21:04)
[2021-02-21] MEDS: SODIUM CHLORIDE 0.9% 1,000 ML IV SCH (21:04)
[2021-02-22] MEDS: FUROSEMIDE 40 MG TAB PO SCH ×2 (05:27→13:31)
[2021-02-22] MEDS: GABAPENTIN 100 MG CAP PO SCH ×3 (05:27→21:04)
[2021-02-22] MEDS: PANTOPRAZOLE 40 MG TABLET PO SCH (05:27)
[2021-02-22] MEDS: THEOPHYLLINE 24 HOUR 400 MG CAP.ER.24H PO SCH (07:56)
[2021-02-22] MEDS: DOXYCYCLINE 100 MG CAP PO SCH ×2 (07:56→21:04)
[2021-02-22] MEDS: CHOLECALCIFEROL 25 MCG (1000 IU) TABLET PO SCH (07:56)
[2021-02-22] MEDS: predniSONE 20 MG TAB PO SCH (07:56)
[2021-02-22] MEDS: DULoxetine HCL 30 MG CAPSULE.DR PO SCH (07:56)
[2021-02-22] MEDS: acetaZOLAMIDE 250 MG TAB PO SCH (07:56)
[2021-02-22] MEDS: MAGNESIUM OXIDE 400 MG TAB PO SCH (07:56)
[2021-02-22] MEDS: VERAPAMIL 80 MG TAB PO SCH ×3 (07:56→15:52)
[2021-02-22] MEDS: INSULIN ASPART (NovoLOG) 100 UNIT/ML VIAL SQ SCH ×4 (07:57→21:03)
[2021-02-22] MEDS: ENOXAPARIN 40 MG/0.4 ML SYRINGE SQ SCH (07:57)
[2021-02-22] MEDS: LIDOCAINE 5% PATCH TOPICAL SCH (07:57)
[2021-02-22] MEDS: ALBUTEROL HFA INHALER INHALATION SCH ×4 (08:08→20:38)
[2021-02-22] MEDS: TIOTROPIUM 2.5 MCG INHALER INHALATION SCH (08:09)
[2021-02-22 08:19] LABS: Glucose,Whole Blood 180 mg/dL (75-99)
[2021-02-22] MEDS: FLUTICASONE 50MCG/SPRAY NASAL 16GM EA NOSTRIL SCH (09:58)
[2021-02-22 10:42] LABS: Anisocytosis Slight; HCT 32.6 % (34.0-46.0); HGB 10.2 gm/dL (11.4-16.0); Hypochromasia Marked; MCH 27.5 pg (25.0-35.0); MCHC 31.2 g/dL (31.0-37.0); MCV 87.9 fL (80.0-100.0); Mean Platelet Volume 8.2; Platelet Count 322 k/uL (150-450); Poikilocytosis Slight; RBC 3.71 m/uL (3.80-5.40); RDW 18.5 % (11.5-15.5)
[2021-02-22 10:43] LABS: ALT 16 U/L (4-34); AST 19 U/L (14-36); African American GFR (CKD) 82 (>60 ml/min/1.73 sqM); Albumin 3.3 g/dL (3.5-5.0); Albumin/Globulin Ratio 1.3; Alkaline Phosphatase 70 U/L (38-126); Blood Urea Nitrogen 33 mg/dL (7-17); Calcium 8.2 mg/dL (8.4-10.2); Chloride 93 mmol/L (98-107); Globulin 2.6 g/dL; Glucose 202 mg/dL (74-99); Non-African American GFR(CKD) 71 (>60 ml/min/1.73 sqM); Potassium 2.9 mmol/L (3.5-5.1); Sodium 137 mmol/L (137-145); Total Bilirubin 0.4 mg/dL (0.2-1.3); Total Protein 5.9 g/dL (6.3-8.2)
[2021-02-22 10:51] LABS: Anion Gap 6 mmol/L
[2021-02-22 10:55] LABS: Carbon Dioxide 38 mmol/L (22-30)
[2021-02-22] MEDS: POTASSIUM CHLORIDE 20 MEQ in WATER FOR INJECTION 1 100ML.BAG IVPB SCH ×5 (11:45→21:03)
[2021-02-22] MEDS: POTASSIUM CHLORIDE ER 10 MEQ TAB.ER.PRT PO SCH ×7 (11:45→21:04)
[2021-02-22 11:49] LABS: Glucose,Whole Blood 161 mg/dL (75-99)
[2021-02-22] MEDS: ACETAMINOPHEN TAB 500 MG TAB PO PRN (12:35)
[2021-02-22 13:24] LABS: Band Neutrophils % 2 %; Eosinophils # (M) 0.14 k/uL (0-0.7); Lymphocytes # (M) 1.35 k/uL (1.0-4.8); Metamyelocytes # (M) 0.14 k/uL (0); Metamyelocytes % 1 %; Monocytes # (M) 0.27 k/uL (0-1.0); Myelocytes # (M) 0.27 k/uL (0); Myelocytes % 2 %; Neutrophils % (M) 84 %; Nucleated Red Blood Cells 3 /100 WBC (0-0); Total Cells Counted 200; WBC 13.5 k/uL (3.8-10.6)
[2021-02-22 13:25] LABS: Polychromasia Present
--- NOTE | 2021-02-22 13:41 | P.PN ---
Subjective Progress Note Date: 02/22/21 Principal diagnosis: Shortness of breath This is a pleasant 65-year-old female patient who is well-known to our service for severe COPD. She's had multiple admissions. She was recently admitted in December with COPD exacerbation complicated by COVID-19. Following that discharge on 01/26/2021 she was sent to [facility]. She was represented here to the emergency room yesterday with complaints of increasing shortness of breath. CoVID screen this admission was negative. Chest x-ray revealed evidence of COPD. She was initially placed on BiPAP and became more awake and alert. She is seen today in consultation on the regular medical floor. Currently sitting up in bed. Awake and alert in no acute distress. Dyspneic with minimal exertion. Chest x-ray reveals bilateral patchy infiltrates. She is currently maintaining good O2 saturations in the low 90s on 3 L/m per nasal cannula. She's afebrile. Hemodynamically stable. Rios blood gases revealed a PaO2 of 66, pCO2 83, pH 7.32. D-dimer 0.75. White count 14.0. Hemoglobin 10.4. Sodium 133. Potassium 3.3. Bicarb 43. Creatinine 0.87. Glucose 147. LDH 835. C-reactive protein 30.5. Calcitonin 0.81. [place] virus not detected. On 02/21/2021 patient seen in follow-up on medical surgical floor, she is resting comfortably in bed, she is currently on 3 L of oxygen breathing comfortably, she was on BiPAP earlier, with FiO2 of 40%, pulse ox on the BiPAP support was 97-98%, she has been afebrile, complaints of chest discomfort. Lung sounds reveal diffuse coarse crackles, no significant wheezing, at times she has a congested cough, with production. she has a history of recent covid in december. Chest x-ray showed patchy densities in the bilateral lungs. Her d-dimer was 0.75, and CT chest was completed showing no evidence of pulmonary embolism, and extensive right upper lobe airspace consolidation and atelectasis similar to old exam, patchy infiltrates in the remaining lung guzman, and there is improvement of the right lower lobe infiltrate compared to old exam. No new labs today. Patient remains on oral Lasix 40 mg twice daily, she is on Lovenox 40 mg daily, IV Solu-Medrol, and patient is improving she's feeling better, and she is close to her baseline. No fever or chills, blood cultures have shown no growth. On 02/22/2001 patient seen in follow-up. She states she's not feeling very good, but breathing appears to be stable, she is on 3 L of oxygen the pulse ox 98%, she does wear BiPAP support at bedtime and as needed during the day with FiO2 of 40%, blood pressures are elevated at 180/102, she is afebrile, no complaints of chest discomfort. No increased cough or congestion, lung sounds are diminished with a few rhonchi, she looks weak, she remains on oral diuretics, she is in -2.4 L fluid balance over the last 24 hours, her potassium level is low this morning at 2.9 and this is being replaced with a combination of oral and IV potassium replacements. The rest of the labs have been reviewed, her white blood cell count is 13.5, hemoglobin is 10.2, chloride is 93, CO2 is coming down and is down to 38 on today's labs, B1 is 33 and creatinine 0.85. Her pro-calcitonin level came back elevated at 0.81, patient is currently on doxycycline, cultures have been negative Objective - Vital Signs Vital signs: Vital Signs Temp 98.5 F 02/22/21 08:00 Pulse 95 02/22/21 08:00 Resp 23 02/22/21 08:00 BP 180/102 02/22/21 08:00 Pulse Ox 98 02/22/21 08:00 Intake & Output 02/21/21 02/22/21 02/22/21 18:59 06:59 18:59 Intake Total 600 Output Total 1675 775 Balance -1675 -773 600 Intake: IV 600 Potassium Chloride 20 meq 300 In Water For Injection 1 100ml.bag @ 50 mls/hr IVPB Q2H LATESHA Rx#: [id number] Potassium Chloride 20 meq 300 In Water For Injection 1 100ml.bag @ 50 mls/hr IVPB Q2H LATESHA Rx#: [id number] Output: Urine 2545 775 Other: Voiding Method Indwelling Catheter Indwelling Catheter Indwelling Catheter # Bowel Movements 1 - Exam GENERAL EXAM: Alert, very pleasant, 65-year-old white female, on 3 L of oxygen comfortable in no apparent distress. HEAD: Normocephalic/atraumatic. EYES: Normal reaction of pupils, equal size. Conjunctiva pink, sclera white. NOSE: Clear with pink turbinates. THROAT: No erythema or exudates. NECK: No masses, no JVD, no thyroid enlargement, no adenopathy. CHEST: No chest wall deformity. Symmetrical expansion. LUNGS: Equal air entry with diffuse coarse crackles, but no significant wheeze, rhonchi or dullness. CVS: Regular rate and rhythm, normal S1 and S2, no gallops, no murmurs, no rubs ABDOMEN: Soft, nontender. No hepatosplenomegaly, normal bowel sounds, no guarding or rigidity. EXTREMITIES: No clubbing, mild generalized no cyanosis, 2+ pulses and upper and lower extremities. MUSCULOSKELETAL: Muscle strength and tone normal. SPINE: No scoliosis or deformity SKIN: No rashes CENTRAL NERVOUS SYSTEM: Alert and oriented -3. No focal deficits, tone is normal in all 4 extremities. PSYCHIATRIC: Alert and oriented -3. Appropriate affect. Intact judgment and insight. - Labs CBC & Chem 7: 02/22/21 10:09 02/22/21 10:09 Labs: Abnormal Lab Results - Last 24 Hours (Table) 02/21/21 02/21/21 02/22/21 Range/Units 16:35 20:54 07:01 WBC (3.8-10.6) k/uL RBC (3.80-5.40) m/uL Hgb (11.4-16.0) gm/dL Hct (34.0-46.0) % RDW (11.5-15.5) % Neutrophils # (Manual) (1.3-7.7) k/uL Metamyelocytes # (Man) (0) k/uL Myelocytes # (Manual) (0) k/uL Nucleated RBCs (0-0) /100 WBC Potassium (3.5-5.1) mmol/L Chloride (98-107) mmol/L Carbon Dioxide (22-30) mmol/L BUN (7-17) mg/dL Glucose (74-99) mg/dL POC Glucose (mg/dL) 326 H 219 H 180 H (75-99) mg/dL Calcium (8.4-10.2) mg/dL Total Protein (6.3-8.2) g/dL Albumin (3.5-5.0) g/dL 02/22/21 02/22/21 02/22/21 Range/Units 10:09 10:09 11:44 WBC 13.5 H (3.8-10.6) k/uL RBC 3.71 L (3.80-5.40) m/uL Hgb 10.2 L (11.4-16.0) gm/dL Hct 32.6 L (34.0-46.0) % RDW 18.5 H (11.5-15.5) % Neutrophils # (Manual) 11.60 H (1.3-7.7) k/uL Metamyelocytes # (Man) 0.14 H (0) k/uL Myelocytes # (Manual) 0.27 H (0) k/uL Nucleated RBCs 3 H (0-0) /100 WBC Potassium 2.9 L (3.5-5.1) mmol/L Chloride 93 L (98-107) mmol/L Carbon Dioxide 38 H (22-30) mmol/L BUN 33 H (7-17) mg/dL Glucose 202 H (74-99) mg/dL POC Glucose (mg/dL) 161 H (75-99) mg/dL Calcium 8.2 L (8.4-10.2) mg/dL Total Protein 5.9 L (6.3-8.2) g/dL Albumin 3.3 L (3.5-5.0) g/dL Microbiology - Last 24 Hours (Table) 02/19/21 11:54 Blood Culture - Preliminary Blood No Growth after 48 hours 02/19/21 11:54 Blood Culture - Preliminary Blood No Growth after 48 hours Assessment and Plan Plan: Assessment: #1. Acute on chronic hypercapnic and hypoxemic respiratory failure secondary to severe COPD, and a residual COVID pneumonia. Tested negative for COVID-19 this admission #2. Recent admission for COVID-19 pneumonia #3. Chronic hypoxic respiratory failure related to advanced COPD, currently on home oxygen at 3 L #4. History of DVT #5. History of hypertension #6. History of rheumatoid arthritis #7. History of colitis #8. Osteopenia/osteoporosis #9. Chronic back pain #10. History of restless leg syndrome #11. History of bowel resection #12. History of vulvar cancer Plan: Continue current antibiotics Replace potassium per protocol Weaning FiO2, BiPAP support at bedtime and as needed during the day Continue doxycycline and Lasix From pulmonary perspective patient is stable for discharge back to [facility] I performed a history & physical examination of the patient and discussed their management with my nurse practitioner, Savanah Mart. I reviewed the nurse practitioner's note and agree with the documented findings and plan of care. Lung sounds are positive for diffuse crackles. The findings and the impression was discussed with the patient. I attest to the documentation by the nurse practitioner. Time with Patient: Less than 30
[2021-02-22] MEDS: MULTIVITAMINS, THERA 1 EACH TAB PO SCH (15:51)
[2021-02-22 16:46] LABS: Glucose,Whole Blood 321 mg/dL (75-99)
--- NOTE | 2021-02-22 16:48 | PN ---
PROGRESS NOTE DATE OF SERVICE: 02/22/2021 This 65-year-old woman who was admitted with acute bilateral pneumonia is being closely monitored. The patient also had acute respiratory failure. Patient was on and off BiPAP. Chest CT done most recently showed no evidence of pulmonary embolism. Extensive airspace disease noted. The patient has severe hyperkalemia also. PHYSICAL EXAMINATION: Alert and oriented x2. Pulse 95, blood pressure 180/102, respiration 20, temperature 98.1, pulse ox 98% on 3 L. HEENT: Conjunctivae normal. NECK: No jugular venous distention. CARDIOVASCULAR SYSTEM: S1, S2 muffled. RESPIRATORY SYSTEM: Breath sounds diminished at the bases. A few scattered rhonchi and crackles. ABDOMEN: Soft, non-tender. LEGS: No edema. No swelling. NERVOUS SYSTEM: No focal deficit. LABS: WBC 13.5, hemoglobin 10.2. Sodium 137, potassium 2.9. REVIEW OF SYSTEMS: CARDIOVASCULAR SYSTEM: No angina, palpitations. RESPIRATORY SYSTEM: As mentioned earlier. GI: As mentioned earlier. : No dysuria or retention. NERVOUS SYSTEM: No numbness, weakness. CURRENT MEDICATIONS: Reviewed. They include Tylenol, Diamox, Dulcolax, Vibramycin, Cymbalta, Lasix, Neurontin. ASSESSMENT: 1. Acute bilateral pneumonia, possibly Gram-negative pneumonia with possible acute pneumonia with possible sepsis with acute hypoxic hypercarbic respiratory failure, on BiPAP. 2. Chronic obstructive pulmonary disease, acute exacerbation. 3. Change in mental status, acute metabolic encephalopathy. 4. Severe hypokalemia. 5. History of recent COVID-19 pneumonia. 6. Increased white count. 7. Anemia, normocytic. 8. Hyponatremia. 9. Elevated LDH. 10.Elevated CRP. 11.Chronic obstructive pulmonary disease. 12.History of deep venous thrombosis. 13.Hypertension. 14.History of pneumonia. 15.History of rheumatoid arthritis. 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 17.History of appendectomy. 18.History of bowel resection. 19.History of attention deficit disorder, attention deficit hyperactivity disorder. 20.History of anxiety. 21.Remote history of nicotine dependence. 22.Obesity with body mass index of 36.1. RECOMMENDATIONS AND DISCUSSION: I recommend to continue current medications, continue with the monitoring, symptomatic treatment. Supplement potassium, at least 240 mEq of potassium. Repeat the electrolyte later and CBC, BMP tomorrow also. Cultures are negative so far. Continue the rest of the medications. Pulmonary is following the patient closely. Further recommendations to follow. See orders for further details. MMODL / IJN: [id number] /
[2021-02-22 20:30] LABS: Glucose,Whole Blood 169 mg/dL (75-99)
[2021-02-22] MEDS: MELATONIN 3 MG TABLET PO SCH (21:04)
[2021-02-22] MEDS: MONTELUKAST 10 MG TAB PO SCH (21:05)
[2021-02-22] MEDS: SODIUM CHLORIDE 0.9% 1,000 ML IV SCH (21:18)
[2021-02-23] MEDS: POTASSIUM CHLORIDE 20 MEQ in WATER FOR INJECTION 1 100ML.BAG IVPB SCH (00:02)
[2021-02-23] MEDS: ACETAMINOPHEN TAB 500 MG TAB PO PRN (00:09)
[2021-02-23] MEDS: GABAPENTIN 100 MG CAP PO SCH ×3 (05:11→20:29)
[2021-02-23] MEDS: PANTOPRAZOLE 40 MG TABLET PO SCH (05:11)
[2021-02-23] MEDS: FUROSEMIDE 40 MG TAB PO SCH ×2 (05:11→14:04)
[2021-02-23 06:57] LABS: Anisocytosis Slight; HGB 11.1 gm/dL (11.4-16.0); Hypochromasia Marked; MCH 26.9 pg (25.0-35.0); MCHC 30.7 g/dL (31.0-37.0); MCV 87.6 fL (80.0-100.0); Mean Platelet Volume 7.9; Platelet Count 397 k/uL (150-450); Poikilocytosis Slight; RBC 4.12 m/uL (3.80-5.40); RDW 18.6 % (11.5-15.5)
[2021-02-23 07:10] LABS: ALT 16 U/L (4-34); AST 25 U/L (14-36); African American GFR (CKD) 73 (>60 ml/min/1.73 sqM); Albumin 3.5 g/dL (3.5-5.0); Albumin/Globulin Ratio 1.4; Alkaline Phosphatase 84 U/L (38-126); Anion Gap 1 mmol/L; Blood Urea Nitrogen 33 mg/dL (7-17); Calcium 9.2 mg/dL (8.4-10.2); Carbon Dioxide 37 mmol/L (22-30); Chloride 100 mmol/L (98-107); Globulin 2.5 g/dL; Glucose 89 mg/dL (74-99); Non-African American GFR(CKD) 63 (>60 ml/min/1.73 sqM); Potassium 4.9 mmol/L (3.5-5.1); Sodium 138 mmol/L (137-145); Total Bilirubin 0.4 mg/dL (0.2-1.3)
[2021-02-23 07:11] LABS: Glucose,Whole Blood 105 mg/dL (75-99)
[2021-02-23] MEDS: DOXYCYCLINE 100 MG CAP PO SCH ×2 (08:23→20:29)
[2021-02-23] MEDS: INSULIN ASPART (NovoLOG) 100 UNIT/ML VIAL SQ SCH ×4 (08:23→20:29)
[2021-02-23] MEDS: VERAPAMIL 80 MG TAB PO SCH ×3 (08:23→16:17)
[2021-02-23] MEDS: MAGNESIUM OXIDE 400 MG TAB PO SCH (08:24)
[2021-02-23] MEDS: THEOPHYLLINE 24 HOUR 400 MG CAP.ER.24H PO SCH (08:24)
[2021-02-23] MEDS: DULoxetine HCL 30 MG CAPSULE.DR PO SCH (08:24)
[2021-02-23] MEDS: predniSONE 20 MG TAB PO SCH (08:24)
[2021-02-23] MEDS: LIDOCAINE 5% PATCH TOPICAL SCH (08:24)
[2021-02-23] MEDS: CHOLECALCIFEROL 25 MCG (1000 IU) TABLET PO SCH (08:24)
[2021-02-23] MEDS: ENOXAPARIN 40 MG/0.4 ML SYRINGE SQ SCH (08:24)
[2021-02-23] MEDS: FLUTICASONE 50MCG/SPRAY NASAL 16GM EA NOSTRIL SCH (08:25)
[2021-02-23] MEDS: TIOTROPIUM 2.5 MCG INHALER INHALATION SCH (08:51)
[2021-02-23] MEDS: ALBUTEROL HFA INHALER INHALATION SCH ×4 (08:51→21:15)
[2021-02-23 11:02] LABS: Band Neutrophils % 1 %; Metamyelocytes # (M) 0.33 k/uL (0); Metamyelocytes % 2 %; Myelocytes # (M) 0.33 k/uL (0); Myelocytes % 2 %; Neutrophils % (M) 77 %; Nucleated Red Blood Cells 1 /100 WBC (0-0); Total Cells Counted 200
[2021-02-23 11:03] LABS: Monocytes # (M) 1.48 k/uL (0-1.0); WBC 16.4 k/uL (3.8-10.6)
[2021-02-23 11:04] LABS: Polychromasia Present
[2021-02-23 11:24] LABS: Glucose,Whole Blood 129 mg/dL (75-99)
[2021-02-23] MEDS: POTASSIUM CHLORIDE ER 10 MEQ TAB.ER.PRT PO SCH (14:04)
[2021-02-23] MEDS: MAGNESIUM HYDROXIDE 2,400 MG/10 ML CUP PO PRN (14:04)
[2021-02-23] MEDS: MULTIVITAMINS, THERA 1 EACH TAB PO SCH (14:04)
--- NOTE | 2021-02-23 15:28 | P.PN ---
Subjective Progress Note Date: 02/23/21 Principal diagnosis: Shortness of breath This is a pleasant 65-year-old female patient who is well-known to our service for severe COPD. She's had multiple admissions. She was recently admitted in December with COPD exacerbation complicated by COVID-19. Following that discharge on 01/26/2021 she was sent to [facility]. She was represented here to the emergency room yesterday with complaints of increasing shortness of breath. CoVID screen this admission was negative. Chest x-ray revealed evidence of COPD. She was initially placed on BiPAP and became more awake and alert. She is seen today in consultation on the regular medical floor. Currently sitting up in bed. Awake and alert in no acute distress. Dyspneic with minimal exertion. Chest x-ray reveals bilateral patchy infiltrates. She is currently maintaining good O2 saturations in the low 90s on 3 L/m per nasal cannula. She's afebrile. Hemodynamically stable. Rios blood gases revealed a PaO2 of 66, pCO2 83, pH 7.32. D-dimer 0.75. White count 14.0. Hemoglobin 10.4. Sodium 133. Potassium 3.3. Bicarb 43. Creatinine 0.87. Glucose 147. LDH 835. C-reactive protein 30.5. Calcitonin 0.81. [place] virus not detected. On 02/21/2021 patient seen in follow-up on medical surgical floor, she is resting comfortably in bed, she is currently on 3 L of oxygen breathing comfortably, she was on BiPAP earlier, with FiO2 of 40%, pulse ox on the BiPAP support was 97-98%, she has been afebrile, complaints of chest discomfort. Lung sounds reveal diffuse coarse crackles, no significant wheezing, at times she has a congested cough, with production. she has a history of recent covid in december. Chest x-ray showed patchy densities in the bilateral lungs. Her d-dimer was 0.75, and CT chest was completed showing no evidence of pulmonary embolism, and extensive right upper lobe airspace consolidation and atelectasis similar to old exam, patchy infiltrates in the remaining lung guzman, and there is improvement of the right lower lobe infiltrate compared to old exam. No new labs today. Patient remains on oral Lasix 40 mg twice daily, she is on Lovenox 40 mg daily, IV Solu-Medrol, and patient is improving she's feeling better, and she is close to her baseline. No fever or chills, blood cultures have shown no growth. On 02/22/2001 patient seen in follow-up. She states she's not feeling very good, but breathing appears to be stable, she is on 3 L of oxygen the pulse ox 98%, she does wear BiPAP support at bedtime and as needed during the day with FiO2 of 40%, blood pressures are elevated at 180/102, she is afebrile, no complaints of chest discomfort. No increased cough or congestion, lung sounds are diminished with a few rhonchi, she looks weak, she remains on oral diuretics, she is in -2.4 L fluid balance over the last 24 hours, her potassium level is low this morning at 2.9 and this is being replaced with a combination of oral and IV potassium replacements. The rest of the labs have been reviewed, her white blood cell count is 13.5, hemoglobin is 10.2, chloride is 93, CO2 is coming down and is down to 38 on today's labs, B1 is 33 and creatinine 0.85. Her pro-calcitonin level came back elevated at 0.81, patient is currently on doxycycline, cultures have been negative On 02/23/2021 patient is seen in follow-up on medical surgical floor, she sitting up in the recliner today, does not appear to be in any acute distress, she states her breathing is improved, lung sounds reveal diminished breath sounds with minimal crackles, patient has had no fever or chills, no complaints of chest discomfort, no hemoptysis, she is on doxycycline for empiric antibiotic coverage, she is on oral Lasix, her generalized edema has significantly improved, is on oral prednisone. She is in -1.7 L net fluid balance over the last 24 hours. Sinus mechanism with a controlled rate, today's labs have been noted, white blood cell count 16.4, hemoglobin is 11.1, CO2 is down to 37, the rest of the electrolytes and renal profile are unremarkable. Discharge to [facility] is pending, patient was retested for COVID-19 and was again negative. She is only complaint today is abdominal distention, patient feels a little constipated but abdomen is soft, nontender Objective - Vital Signs Vital signs: Vital Signs Temp 98.4 F 02/23/21 07:58 Pulse 105 H 02/23/21 07:58 Resp 20 02/23/21 07:58 BP 164/91 02/23/21 07:58 Pulse Ox 98 02/23/21 07:58 Intake & Output 02/22/21 02/23/21 02/23/21 18:59 06:59 18:59 Intake Total 600 Output Total 2000 325 800 Balance -1400 -325 -800 Intake: IV 600 Potassium Chloride 20 meq 300 In Water For Injection 1 100ml.bag @ 50 mls/hr IVPB Q2H LATESHA Rx#: [id number] Potassium Chloride 20 meq 300 In Water For Injection 1 100ml.bag @ 50 mls/hr IVPB Q2H LATESHA Rx#: [id number] Output: Urine 1999 325 800 Uretheral ([place]) 800 Other: Voiding Method Indwelling Catheter Indwelling Catheter Indwelling Catheter # Bowel Movements 1 - Exam GENERAL EXAM: Alert, very pleasant, 65-year-old white female, on 3 L of oxygen with a pulse ox of 98% comfortable in no apparent distress. HEAD: Normocephalic/atraumatic. EYES: Normal reaction of pupils, equal size. Conjunctiva pink, sclera white. NOSE: Clear with pink turbinates. THROAT: No erythema or exudates. NECK: No masses, no JVD, no thyroid enlargement, no adenopathy. CHEST: No chest wall deformity. Symmetrical expansion. LUNGS: Equal air entry with diffuse coarse crackles, but no significant wheeze, rhonchi or dullness. CVS: Regular rate and rhythm, normal S1 and S2, no gallops, no murmurs, no rubs ABDOMEN: Soft, nontender. No hepatosplenomegaly, normal bowel sounds, no guarding or rigidity. EXTREMITIES: No clubbing, mild generalized no cyanosis, 2+ pulses and upper and lower extremities. MUSCULOSKELETAL: Muscle strength and tone normal. SPINE: No scoliosis or deformity SKIN: No rashes CENTRAL NERVOUS SYSTEM: Alert and oriented -3. No focal deficits, tone is normal in all 4 extremities. PSYCHIATRIC: Alert and oriented -3. Appropriate affect. Intact judgment and insight. - Labs CBC & Chem 7: 02/23/21 06:23 02/23/21 06:23 Labs: Abnormal Lab Results - Last 24 Hours (Table) 02/22/21 02/22/21 02/23/21 Range/Units 16:44 20:28 06:23 WBC (3.8-10.6) k/uL Hgb (11.4-16.0) gm/dL MCHC (31.0-37.0) g/dL RDW (11.5-15.5) % Neutrophils # (Manual) (1.3-7.7) k/uL Monocytes # (Manual) (0-1.0) k/uL Metamyelocytes # (Man) (0) k/uL Myelocytes # (Manual) (0) k/uL Nucleated RBCs (0-0) /100 WBC Carbon Dioxide 37 H (22-30) mmol/L BUN 33 H (7-17) mg/dL POC Glucose (mg/dL) 321 H 169 H (75-99) mg/dL Total Protein 6.0 L (6.3-8.2) g/dL 02/23/21 02/23/21 02/23/21 Range/Units 06:23 06:48 11:20 WBC 16.4 H (3.8-10.6) k/uL Hgb 11.1 L (11.4-16.0) gm/dL MCHC 30.7 L (31.0-37.0) g/dL RDW 18.6 H (11.5-15.5) % Neutrophils # (Manual) 12.70 H (1.3-7.7) k/uL Monocytes # (Manual) 1.48 H (0-1.0) k/uL Metamyelocytes # (Man) 0.33 H (0) k/uL Myelocytes # (Manual) 0.33 H (0) k/uL Nucleated RBCs 1 H (0-0) /100 WBC Carbon Dioxide (22-30) mmol/L BUN (7-17) mg/dL POC Glucose (mg/dL) 105 H 129 H (75-99) mg/dL Total Protein (6.3-8.2) g/dL Microbiology - Last 24 Hours (Table) 02/19/21 11:54 Blood Culture - Preliminary Blood No Growth after 96 hours 02/19/21 11:54 Blood Culture - Preliminary Blood No Growth after 96 hours Assessment and Plan Plan: Assessment: #1. Acute on chronic hypercapnic and hypoxemic respiratory failure secondary to severe COPD, and a residual COVID pneumonia. Tested negative for COVID-19 this admission #2. Recent admission for COVID-19 pneumonia #3. Chronic hypoxic respiratory failure related to advanced COPD, currently on home oxygen at 3 L #4. History of DVT #5. History of hypertension #6. History of rheumatoid arthritis #7. History of colitis #8. Osteopenia/osteoporosis #9. Chronic back pain #10. History of restless leg syndrome #11. History of bowel resection #12. History of vulvar cancer Plan: Continue oral diuretics Replace potassium per protocol Breathing easier, continue weaning FiO2 to keep O2 sats ration and her above 90% BiPAP with pressures of 12/6 and FiO2 of 32% at bedtime and as needed, and this is a setting to use at the [facility] as well Continue oral prednisone and doxycycline Vital signs have been stable From pulmonary perspective patient is stable for discharge back to [facility] I performed a history & physical examination of the patient and discussed their management with my nurse practitioner, Savanah Mart. I reviewed the nurse practitioner's note and agree with the documented findings and plan of care. Lung sounds are positive for diffuse crackles. The findings and the impression was discussed with the patient. I attest to the documentation by the nurse practitioner. Time with Patient: Less than 30
[2021-02-23 16:42] LABS: Glucose,Whole Blood 210 mg/dL (75-99)
[2021-02-23 20:22] LABS: Glucose,Whole Blood 194 mg/dL (75-99)
[2021-02-23] MEDS: MONTELUKAST 10 MG TAB PO SCH (20:29)
[2021-02-23] MEDS: SODIUM CHLORIDE 0.9% 1,000 ML IV SCH (20:30)
[2021-02-23] MEDS: MELATONIN 3 MG TABLET PO SCH (20:30)
[2021-02-23] MEDS: bisacodyL 10 MG SUPP RECTAL PRN (21:15)
--- NOTE | 2021-02-23 22:35 | P.PN ---
Progress Note - Text Progress Note Date: 02/23/21 Presenting complaint Shortness of breath History of presenting complaint: This is a pleasant 65-year-old female . severe COPD. She's had multiple admissions. She was recently admitted in December with COPD exacerbation complicated by COVID-19. Following that discharge on 01/26/2021 she was sent to [facility]. She was presented here to the emergency room with complaints of increasing shortness of breath. CoVID screen this admission was negative. Chest x-ray revealed evidence of COPD. She was initially placed on BiPAP and became more awake and alert. Admitted with acute on chronic hypercapnic hypoxic respiratory failure. Placed on bronchodilators. Today: Laying in bed. Tired. Decreased oral intake. Review of systems: Was done for constitutional, cardiovascular, GI, pulmonary. relevant finding as above Active Medications Acetaminophen (Acetaminophen Tab 500 Mg Tab) 1,000 mg PO Q6HR PRN PRN Reason: Fever>101 Last Admin: 02/23/21 00:09 Dose: 1,000 mg Documented by: Albuterol Sulfate (Albuterol Hfa Inhaler) 2 puff INHALATION RT-QID [facility] Last Admin: 02/23/21 21:15 Dose: 2 puff Documented by: Bisacodyl (Bisacodyl 10 Mg Supp) 10 mg RECTAL DAILY PRN PRN Reason: Constipation Last Admin: 02/23/21 21:15 Dose: 10 mg Documented by: Cholecalciferol (Cholecalciferol 25 Mcg (1000 Iu) Tablet) 25 mcg PO DAILY@0800 [facility] Last Admin: 02/23/21 08:24 Dose: 25 mcg Documented by: Doxycycline Monohydrate (Doxycycline 100 Mg Cap) 100 mg PO BID [facility] Last Admin: 02/23/21 20:29 Dose: 100 mg Documented by: Duloxetine HCl (Duloxetine Hcl 30 Mg Capsule.Dr) 30 mg PO DAILY@0800 [facility] Last Admin: 02/23/21 08:24 Dose: 30 mg Documented by: Enoxaparin Sodium (Enoxaparin 40 Mg/0.4 Ml Syringe) 40 mg SQ DAILY [facility] Last Admin: 02/23/21 08:24 Dose: 40 mg Documented by: Fluticasone Propionate (Fluticasone 50mcg/[address] Nasal 16gm) 1 spray EA NOSTRIL DAILY@0800 [facility] Last Admin: 02/23/21 08:25 Dose: Not Given Documented by: Furosemide (Furosemide 40 Mg Tab) 40 mg PO BID@0600,1400 [facility] Last Admin: 02/23/21 14:04 Dose: 40 mg Documented by: Gabapentin (Gabapentin 100 Mg Cap) 100 mg PO TID@0600,1400,2200 [facility] Last Admin: 02/23/21 20:29 Dose: 100 mg Documented by: Guaifenesin (Guaifenesin Syrup 100mg/5ml 200 Mg/10 Ml Cup) 200 mg PO Q6H PRN PRN Reason: Cough Sodium Chloride (Saline 0.9%) 1,000 mls @ 20 mls/hr IV .Q24H [facility] Last Admin: 02/23/21 20:30 Dose: Not Given Documented by: Insulin Aspart (Insulin Aspart (Novolog) 100 Unit/Ml Vial) 0 unit SQ ACHS [facility]; Protocol Last Admin: 02/23/21 20:29 Dose: 2 unit Documented by: Levetiracetam (Levetiracetam 750 Mg Tab) 750 mg PO BID@0800,2100 [facility] Last Admin: 02/23/21 20:29 Dose: 750 mg Documented by: Lidocaine (Lidocaine 5% Patch) 1 patch TOPICAL DAILY@0800 [facility] Last Admin: 02/23/21 08:24 Dose: 1 patch Documented by: Magnesium Hydroxide (Magnesium Hydroxide 2,400 Mg/10 Ml Cup) 7,200 mg PO Q48H PRN PRN Reason: Constipation Last Admin: 02/23/21 14:04 Dose: 7,200 mg Documented by: Magnesium Oxide (Magnesium Oxide 400 Mg Tab) 400 mg PO DAILY@0800 [facility] Last Admin: 02/23/21 08:24 Dose: 400 mg Documented by: Melatonin (Melatonin 3 Mg Tablet) 3 mg PO HS@2100 [facility] Last Admin: 02/23/21 20:30 Dose: 3 mg Documented by: Miscellaneous Information (Pneumonia Protocol Utilized 1 Each Misc) 1 each PO ONCE PRN PRN Reason: Per Protocol Montelukast Sodium (Montelukast 10 Mg Tab) 10 mg PO HS@2100 [facility] Last Admin: 02/23/21 20:29 Dose: 10 mg Documented by: Multivitamins (Multivitamins, Thera 1 Each Tab) 1 each PO DAILY@1700 [facility] Last Admin: 02/23/21 14:04 Dose: 1 each Documented by: Pantoprazole Sodium (Pantoprazole 40 Mg Tablet) 40 mg PO DAILY@0600 [facility] Last Admin: 02/23/21 05:11 Dose: 40 mg Documented by: Potassium Chloride (Potassium Chloride Er 10 Meq Tab.Er.Prt) 10 meq PO DAILY@1700 [facility] Last Admin: 02/23/21 14:04 Dose: 10 meq Documented by: Prednisone (Prednisone 20 Mg Tab) 20 mg PO DAILY [facility] Last Admin: 02/23/21 08:24 Dose: 20 mg Documented by: Ropinirole HCl (Ropinirole Hcl 0.25 Mg Tab) 0.5 mg PO HS@2100 [facility] Last Admin: 02/23/21 20:29 Dose: 0.5 mg Documented by: Sodium Chloride (Sodium Chloride 0.65% Nasal [address] 44 Ml Btl) 2 spray INTRANASAL Q2H PRN PRN Reason: Dry Nasal Passages Theophylline (Theophylline 24 Hour 400 Mg Cap.Er.24h) 400 mg PO DAILY@0800 [facility] Last Admin: 02/23/21 08:24 Dose: 400 mg Documented by: Tiotropium [place] (Tiotropium 2.5 Mcg Inhaler) 2 puff INHALATION RT-DAILY [facility] Last Admin: 02/23/21 08:51 Dose: 2 puff Documented by: Verapamil HCl (Verapamil 80 Mg Tab) 80 mg PO TID@0800,1200,1700 [facility] Last Admin: 02/23/21 16:17 Dose: 80 mg Documented by: INVESTIGATIONS, reviewed in the clinical context: WBC 16.4 hemoglobin 11.1 platelets 397 potassium 4.9 creatinine 0.94 Chest CTA: Extensive right upper lobe airspace consolidation and atelectasis similar to previous exam. Straight patchy infiltrates in the remaining lung guzman. Some improvement Assessment and plan: #1. Acute on chronic hypercapnic and hypoxemic respiratory failure secondary to severe COPD, and a residual COVID pneumonia. Tested negative for COVID-19 this admission Oxygen supplementation. Currently on 3 L of nasal cannula -Acute severe COPD exacerbation, an [id number] Continue with bronchodilators and oral steroids #2. Recent admission for COVID-19 pneumonia-recovered #3. Chronic hypoxic respiratory failure related to advanced COPD, currently on home oxygen at 3 L #4. History of DVT #5. Essential hypertension Continue with verapamil #6. Chronic rheumatoid arthritis Follow clinically. On prednisone 10 mg a day #7. History of colitis #8. Osteopenia/osteoporosis #9. Chronic back pain, likely osteoarthritis #10. restless leg syndrome Continue Requip #11. History of bowel resection -Acute on chronic medical debility PT OT Care was discussed with the patient. We'll have the patient set up in a chair. Change the diet to a chopped diet. Discussed with the nurse. [facility]
[2021-02-24] MEDS: FUROSEMIDE 40 MG TAB PO SCH ×2 (05:18→14:03)
[2021-02-24] MEDS: PANTOPRAZOLE 40 MG TABLET PO SCH (05:19)
[2021-02-24] MEDS: GABAPENTIN 100 MG CAP PO SCH ×3 (05:19→21:06)
[2021-02-24 06:53] LABS: Glucose,Whole Blood 106 mg/dL (75-99)
[2021-02-24] MEDS: INSULIN ASPART (NovoLOG) 100 UNIT/ML VIAL SQ SCH ×4 (07:01→20:40)
[2021-02-24] MEDS: ALBUTEROL HFA INHALER INHALATION SCH ×4 (07:10→20:48)
[2021-02-24] MEDS: TIOTROPIUM 2.5 MCG INHALER INHALATION SCH (07:10)
[2021-02-24] MEDS: FLUTICASONE 50MCG/SPRAY NASAL 16GM EA NOSTRIL SCH (08:12)
[2021-02-24] MEDS: predniSONE 20 MG TAB PO SCH (08:23)
[2021-02-24] MEDS: DULoxetine HCL 30 MG CAPSULE.DR PO SCH (08:23)
[2021-02-24] MEDS: THEOPHYLLINE 24 HOUR 400 MG CAP.ER.24H PO SCH (08:23)
[2021-02-24] MEDS: LIDOCAINE 5% PATCH TOPICAL SCH (08:23)
[2021-02-24] MEDS: VERAPAMIL 80 MG TAB PO SCH ×3 (08:23→16:23)
[2021-02-24] MEDS: CHOLECALCIFEROL 25 MCG (1000 IU) TABLET PO SCH (08:23)
[2021-02-24] MEDS: MAGNESIUM OXIDE 400 MG TAB PO SCH (08:23)
[2021-02-24] MEDS: ENOXAPARIN 40 MG/0.4 ML SYRINGE SQ SCH (08:23)
[2021-02-24] MEDS: DOXYCYCLINE 100 MG CAP PO SCH ×2 (08:23→21:06)
[2021-02-24] MEDS: ACETAMINOPHEN TAB 500 MG TAB PO PRN ×2 (10:47→19:33)
[2021-02-24 11:19] LABS: Glucose,Whole Blood 142 mg/dL (75-99)
[2021-02-24 15:10] VITALS: BMI 36.1
--- NOTE | 2021-02-24 15:31 | P.PN ---
Subjective Progress Note Date: 02/24/21 Principal diagnosis: Shortness of breath This is a pleasant 65-year-old female patient who is well-known to our service for severe COPD. She's had multiple admissions. She was recently admitted in December with COPD exacerbation complicated by COVID-19. Following that discharge on 01/26/2021 she was sent to [facility]. She was represented here to the emergency room yesterday with complaints of increasing shortness of breath. CoVID screen this admission was negative. Chest x-ray revealed evidence of COPD. She was initially placed on BiPAP and became more awake and alert. She is seen today in consultation on the regular medical floor. Currently sitting up in bed. Awake and alert in no acute distress. Dyspneic with minimal exertion. Chest x-ray reveals bilateral patchy infiltrates. She is currently maintaining good O2 saturations in the low 90s on 3 L/m per nasal cannula. She's afebrile. Hemodynamically stable. Rios blood gases revealed a PaO2 of 66, pCO2 83, pH 7.32. D-dimer 0.75. White count 14.0. Hemoglobin 10.4. Sodium 133. Potassium 3.3. Bicarb 43. Creatinine 0.87. Glucose 147. LDH 835. C-reactive protein 30.5. Calcitonin 0.81. [place] virus not detected. On 02/21/2021 patient seen in follow-up on medical surgical floor, she is resting comfortably in bed, she is currently on 3 L of oxygen breathing comfortably, she was on BiPAP earlier, with FiO2 of 40%, pulse ox on the BiPAP support was 97-98%, she has been afebrile, complaints of chest discomfort. Lung sounds reveal diffuse coarse crackles, no significant wheezing, at times she has a congested cough, with production. she has a history of recent covid in december. Chest x-ray showed patchy densities in the bilateral lungs. Her d-dimer was 0.75, and CT chest was completed showing no evidence of pulmonary embolism, and extensive right upper lobe airspace consolidation and atelectasis similar to old exam, patchy infiltrates in the remaining lung guzman, and there is improvement of the right lower lobe infiltrate compared to old exam. No new labs today. Patient remains on oral Lasix 40 mg twice daily, she is on Lovenox 40 mg daily, IV Solu-Medrol, and patient is improving she's feeling better, and she is close to her baseline. No fever or chills, blood cultures have shown no growth. On 02/22/2001 patient seen in follow-up. She states she's not feeling very good, but breathing appears to be stable, she is on 3 L of oxygen the pulse ox 98%, she does wear BiPAP support at bedtime and as needed during the day with FiO2 of 40%, blood pressures are elevated at 180/102, she is afebrile, no complaints of chest discomfort. No increased cough or congestion, lung sounds are diminished with a few rhonchi, she looks weak, she remains on oral diuretics, she is in -2.4 L fluid balance over the last 24 hours, her potassium level is low this morning at 2.9 and this is being replaced with a combination of oral and IV potassium replacements. The rest of the labs have been reviewed, her white blood cell count is 13.5, hemoglobin is 10.2, chloride is 93, CO2 is coming down and is down to 38 on today's labs, B1 is 33 and creatinine 0.85. Her pro-calcitonin level came back elevated at 0.81, patient is currently on doxycycline, cultures have been negative On 02/23/2021 patient is seen in follow-up on medical surgical floor, she sitting up in the recliner today, does not appear to be in any acute distress, she states her breathing is improved, lung sounds reveal diminished breath sounds with minimal crackles, patient has had no fever or chills, no complaints of chest discomfort, no hemoptysis, she is on doxycycline for empiric antibiotic coverage, she is on oral Lasix, her generalized edema has significantly improved, is on oral prednisone. She is in -1.7 L net fluid balance over the last 24 hours. Sinus mechanism with a controlled rate, today's labs have been noted, white blood cell count 16.4, hemoglobin is 11.1, CO2 is down to 37, the rest of the electrolytes and renal profile are unremarkable. Discharge to [facility] is pending, patient was retested for COVID-19 and was again negative. She is only complaint today is abdominal distention, patient feels a little constipated but abdomen is soft, nontender On 02/24/2021 patient seen in follow-up on medical surgical floor, she sitting up in the recliner, her breathing is stable, she remains on 3 L of oxygen with a pulse ox of 98%, she denies worsening dyspnea, cough, phlegm production. Her complaint today is abdominal pain, she feels bloated, she is complaining of constipation. She states she hasn't been able to go to the bathroom in the last several days. She has had no fever or chills, her abdomen is distended but soft, nontender. She remains on oral Lasix, she is on prophylactic Lovenox, empiric and the backs in the form of doxycycline., She is maintaining negative fluid balance. No fever or chills, she's had stable vitals overnight, discharge to [facility] is likely tomorrow Objective - Vital Signs Vital signs: Vital Signs Temp 98.9 F 02/24/21 13:53 Pulse 109 H 02/24/21 13:53 Resp 18 02/24/21 13:53 BP 138/85 02/24/21 13:53 Pulse Ox 98 02/24/21 13:53 Intake & Output 02/23/21 02/24/21 02/24/21 18:59 06:59 18:59 Output Total 9231 851 6895 Balance -1550 -675 -1500 Weight 83.915 kg Output: Urine 4752 108 2345 Uretheral ([place]) 800 Other: Voiding Method Indwelling Catheter Indwelling Catheter Indwelling Catheter # Bowel Movements 2 - Exam GENERAL EXAM: Alert, very pleasant, 65-year-old white female, on 3 L of oxygen with a pulse ox of 98% comfortable in no apparent distress. HEAD: Normocephalic/atraumatic. EYES: Normal reaction of pupils, equal size. Conjunctiva pink, sclera white. NOSE: Clear with pink turbinates. THROAT: No erythema or exudates. NECK: No masses, no JVD, no thyroid enlargement, no adenopathy. CHEST: No chest wall deformity. Symmetrical expansion. LUNGS: Equal air entry with diffuse coarse crackles, but no significant wheeze, rhonchi or dullness. CVS: Regular rate and rhythm, normal S1 and S2, no gallops, no murmurs, no rubs ABDOMEN: Soft, nontender. No hepatosplenomegaly, normal bowel sounds, no guarding or rigidity. EXTREMITIES: No clubbing, mild generalized no cyanosis, 2+ pulses and upper and lower extremities. MUSCULOSKELETAL: Muscle strength and tone normal. SPINE: No scoliosis or deformity SKIN: No rashes CENTRAL NERVOUS SYSTEM: Alert and oriented -3. No focal deficits, tone is normal in all 4 extremities. PSYCHIATRIC: Alert and oriented -3. Appropriate affect. Intact judgment and insight. - Labs CBC & Chem 7: 02/23/21 06:23 02/23/21 06:23 Labs: Abnormal Lab Results - Last 24 Hours (Table) 02/23/21 02/23/21 02/24/21 Range/Units 16:36 20:20 06:52 POC Glucose (mg/dL) 210 H 194 H 106 H (75-99) mg/dL 02/24/21 Range/Units 11:17 POC Glucose (mg/dL) 142 H (75-99) mg/dL Microbiology - Last 24 Hours (Table) 02/19/21 11:54 Blood Culture - Preliminary Blood No Growth after 120 hours 02/19/21 11:54 Blood Culture - Preliminary Blood No Growth after 120 hours Assessment and Plan Plan: Assessment: #1. Acute on chronic hypercapnic and hypoxemic respiratory failure secondary to severe COPD, and a residual COVID pneumonia. Tested negative for COVID-19 this admission #2. Recent admission for COVID-19 pneumonia #3. Chronic hypoxic respiratory failure related to advanced COPD, currently on home oxygen at 3 L #4. History of DVT #5. History of hypertension #6. History of rheumatoid arthritis #7. History of colitis #8. Osteopenia/osteoporosis #9. Chronic back pain #10. History of restless leg syndrome #11. History of bowel resection #12. History of vulvar cancer Plan: Stable from pulmonary perspective Continue oral diuretics BiPAP with pressures of 12/6 and FiO2 of 32% at bedtime and as needed, and this is a setting to use at the long term as well Continue oral prednisone and doxycycline Vital signs have been stable Abdominal x-ray, and patient supposed to get an enema for complaints of abdominal discomfort and constipation From pulmonary perspective patient is stable for discharge back to [facility] I performed a history & physical examination of the patient and discussed their management with my nurse practitioner, Savanah Mart. I reviewed the nurse practitioner's note and agree with the documented findings and plan of care. Lung sounds are positive for diffuse crackles. The findings and the impression was discussed with the patient. I attest to the documentation by the nurse practitioner. Time with Patient: Less than 30
[2021-02-24] MEDS: POTASSIUM CHLORIDE ER 10 MEQ TAB.ER.PRT PO SCH (16:23)
[2021-02-24] MEDS: MULTIVITAMINS, THERA 1 EACH TAB PO SCH (16:23)
[2021-02-24 16:40] LABS: Glucose,Whole Blood 169 mg/dL (75-99)
--- NOTE | 2021-02-24 17:03 | XR ---
EXAMINATION TYPE: XR abdomen 2V DATE OF EXAM: 02/24/2021 CLINICAL HISTORY: Abdominal pain and distention. Bloating. TECHNIQUE: Supine and upright views of the abdomen are obtained. COMPARISON: Abdominal x-ray January 05, 2021. FINDINGS: Scattered gas is seen in non-distended small bowel loops. Gas and fecal material is seen in non-distended colon. Chronic parenchymal changes in the lung bases. No free air. Moderate axial perla int space loss both hips. IMPRESSION: Overall nonobstructive bowel gas pattern redemonstrated.
[2021-02-24 20:40] LABS: Glucose,Whole Blood 113 mg/dL (75-99)
[2021-02-24] MEDS: MONTELUKAST 10 MG TAB PO SCH (21:06)
[2021-02-24] MEDS: SODIUM CHLORIDE 0.9% 1,000 ML IV SCH (21:07)
[2021-02-24] MEDS: MELATONIN 3 MG TABLET PO SCH (21:07)
--- NOTE | 2021-02-24 21:34 | P.PN ---
Progress Note - Text Progress Note Date: 02/24/21 Presenting complaint Shortness of breath History of presenting complaint: This is a pleasant 65-year-old female . severe COPD. She's had multiple admissions. She was recently admitted in December with COPD exacerbation complicated by COVID-19. Following that discharge on 01/26/2021 she was sent to [facility]. She was presented here to the emergency room with complaints of increasing shortness of breath. CoVID screen this admission was negative. Chest x-ray revealed evidence of COPD. She was initially placed on BiPAP and became more awake and alert. Admitted with acute on chronic hypercapnic hypoxic respiratory failure. Placed on bronchodilators. Today: Breathing better. 3 L nasal cannula. Some abdominal distention. Constipation. Review of systems: Was done for constitutional, cardiovascular, GI, pulmonary. relevant finding as above Active Medications Acetaminophen (Acetaminophen Tab 500 Mg Tab) 1,000 mg PO Q6HR PRN PRN Reason: Fever>101 Last Admin: 02/24/21 19:33 Dose: 1,000 mg Documented by: Albuterol Sulfate (Albuterol Hfa Inhaler) 2 puff INHALATION RT-QID [facility] Last Admin: 02/24/21 20:48 Dose: 2 puff Documented by: Bisacodyl (Bisacodyl 10 Mg Supp) 10 mg RECTAL DAILY PRN PRN Reason: Constipation Last Admin: 02/23/21 21:15 Dose: 10 mg Documented by: Cholecalciferol (Cholecalciferol 25 Mcg (1000 Iu) Tablet) 25 mcg PO DAILY@0800 [facility] Last Admin: 02/24/21 08:23 Dose: 25 mcg Documented by: Doxycycline Monohydrate (Doxycycline 100 Mg Cap) 100 mg PO BID [facility] Last Admin: 02/24/21 21:06 Dose: 100 mg Documented by: Duloxetine HCl (Duloxetine Hcl 30 Mg Capsule.Dr) 30 mg PO DAILY@0800 [facility] Last Admin: 02/24/21 08:23 Dose: 30 mg Documented by: Enoxaparin Sodium (Enoxaparin 40 Mg/0.4 Ml Syringe) 40 mg SQ DAILY [facility] Last Admin: 02/24/21 08:23 Dose: 40 mg Documented by: Fluticasone Propionate (Fluticasone 50mcg/[place] Nasal 16gm) 1 spray EA NOSTRIL DAILY@0800 [facility] Last Admin: 02/24/21 08:12 Dose: Not Given Documented by: Furosemide (Furosemide 40 Mg Tab) 40 mg PO BID@0600,1400 [facility] Last Admin: 02/24/21 14:03 Dose: 40 mg Documented by: Gabapentin (Gabapentin 100 Mg Cap) 100 mg PO TID@0600,1400,2200 [facility] Last Admin: 02/24/21 21:06 Dose: 100 mg Documented by: Guaifenesin (Guaifenesin Syrup 100mg/5ml 200 Mg/10 Ml Cup) 200 mg PO Q6H PRN PRN Reason: Cough Sodium Chloride (Saline 0.9%) 1,000 mls @ 20 mls/hr IV .Q24H [facility] Last Admin: 02/24/21 21:07 Dose: Not Given Documented by: Insulin Aspart (Insulin Aspart (Novolog) 100 Unit/Ml Vial) 0 unit SQ ACHS [facility]; Protocol Last Admin: 02/24/21 20:40 Dose: Not Given Documented by: Levetiracetam (Levetiracetam 750 Mg Tab) 750 mg PO BID@0800,2100 [facility] Last Admin: 02/24/21 21:06 Dose: 750 mg Documented by: Lidocaine (Lidocaine 5% Patch) 1 patch TOPICAL DAILY@0800 [facility] Last Admin: 02/24/21 08:23 Dose: 1 patch Documented by: Magnesium Hydroxide (Magnesium Hydroxide 2,400 Mg/10 Ml Cup) 7,200 mg PO Q48H PRN PRN Reason: Constipation Last Admin: 02/23/21 14:04 Dose: 7,200 mg Documented by: Magnesium Oxide (Magnesium Oxide 400 Mg Tab) 400 mg PO DAILY@0800 [facility] Last Admin: 02/24/21 08:23 Dose: 400 mg Documented by: Melatonin (Melatonin 3 Mg Tablet) 3 mg PO HS@2100 [facility] Last Admin: 02/24/21 21:07 Dose: 3 mg Documented by: Miscellaneous Information (Pneumonia Protocol Utilized 1 Each Misc) 1 each PO ONCE PRN PRN Reason: Per Protocol Montelukast Sodium (Montelukast 10 Mg Tab) 10 mg PO HS@2100 [facility] Last Admin: 02/24/21 21:06 Dose: 10 mg Documented by: Multivitamins (Multivitamins, Thera 1 Each Tab) 1 each PO DAILY@1700 [facility] Last Admin: 04/29/21 16:23 Dose: 1 each Documented by: Pantoprazole Sodium (Pantoprazole 40 Mg Tablet) 40 mg PO DAILY@0600 [facility] Last Admin: 02/24/21 05:19 Dose: 40 mg Documented by: Potassium Chloride (Potassium Chloride Er 10 Meq Tab.Er.Prt) 10 meq PO DAILY@1700 [facility] Last Admin: 02/24/21 16:23 Dose: 10 meq Documented by: Prednisone (Prednisone 20 Mg Tab) 20 mg PO DAILY [facility] Last Admin: 02/24/21 08:23 Dose: 20 mg Documented by: Ropinirole HCl (Ropinirole Hcl 0.25 Mg Tab) 0.5 mg PO HS@2100 [facility] Last Admin: 02/24/21 21:06 Dose: 0.5 mg Documented by: Sodium Chloride (Sodium Chloride 0.65% Nasal [place] 44 Ml Btl) 2 spray INTRANASAL Q2H PRN PRN Reason: Dry Nasal Passages Theophylline (Theophylline 24 Hour 400 Mg Cap.Er.24h) 400 mg PO DAILY@0800 [facility] Last Admin: 02/24/21 08:23 Dose: 400 mg Documented by: Tiotropium [place] (Tiotropium 2.5 Mcg Inhaler) 2 puff INHALATION RT-DAILY [facility] Last Admin: 02/24/21 07:10 Dose: 2 puff Documented by: Verapamil HCl (Verapamil 80 Mg Tab) 80 mg PO TID@0800,1200,1700 [facility] Last Admin: 02/24/21 16:23 Dose: 80 mg Documented by: On examination: VITAL SIGNS: 98.3, 113, 20, 154/86, 97% on 3 L GENERAL APPEARANCE: Sitting up in a chair, nasal cannula HEENT: Normal external appearance of nose and ear. Oral cavity normal EYES: Pupils equal. Conjunctiva normal. NECK: JVD not raised. Mass not palpable. RESPIRATORY: Respiratory effort increased. Decreased breath sounds CARDIOVASCULAR: First and second sounds normal. No edema. ABDOMEN: Soft. Liver and spleen not palpable. No tenderness. No mass palpable. PSYCHIATRY: Alert and oriented x3. Mood and affect normal. INVESTIGATIONS, reviewed in the clinical context: WBC 16.4 hemoglobin 11.1 platelets 397 potassium 4.9 creatinine 0.94 Chest CTA: Extensive right upper lobe airspace consolidation and atelectasis similar to previous exam. Straight patchy infiltrates in the remaining lung guzman. Some improvement Coronavirus [PCR]-not detected Assessment and plan: #1. Acute on chronic hypercapnic and hypoxemic respiratory failure secondary to severe COPD, and a residual COVID pneumonia. Tested negative for COVID-19 this admission Oxygen supplementation. Currently on 3 L of nasal cannula -Acute severe COPD exacerbation, an [id number] Continue with bronchodilators and oral steroids #2. Recent admission for COVID-19 pneumonia-recovered #3. Chronic hypoxic respiratory failure related to advanced COPD, currently on home oxygen at 3 L #4. History of DVT #5. Essential hypertension Continue with verapamil #6. Chronic rheumatoid arthritis Follow clinically. On prednisone 10 mg a day #7. History of colitis #8. Osteopenia/osteoporosis #9. Chronic back pain, likely osteoarthritis #10. restless leg syndrome Continue Requip #11. History of bowel resection -Acute on chronic medical debility PT OT Discussed with the patient and daughter the bedside. Soapsuds enema ordered.
[2021-02-25 01:07] VITALS: RESP 20
[2021-02-25] MEDS: PANTOPRAZOLE 40 MG TABLET PO SCH (05:13)
[2021-02-25] MEDS: ACETAMINOPHEN TAB 500 MG TAB PO PRN (05:13)
[2021-02-25] MEDS: GABAPENTIN 100 MG CAP PO SCH (05:13)
[2021-02-25] MEDS: FUROSEMIDE 40 MG TAB PO SCH (05:13)
[2021-02-25 07:01] LABS: Glucose,Whole Blood 101 mg/dL (75-99)
[2021-02-25] MEDS: ALBUTEROL HFA INHALER INHALATION SCH ×2 (07:35→11:24)
[2021-02-25] MEDS: TIOTROPIUM 2.5 MCG INHALER INHALATION SCH (07:36)
[2021-02-25 08:18] VITALS: BP 174/96; PULSE 94; TEMP 98
[2021-02-25] MEDS: ENOXAPARIN 40 MG/0.4 ML SYRINGE SQ SCH (09:02)
[2021-02-25] MEDS: INSULIN ASPART (NovoLOG) 100 UNIT/ML VIAL SQ SCH ×2 (09:02→12:27)
[2021-02-25] MEDS: LIDOCAINE 5% PATCH TOPICAL SCH (09:02)
[2021-02-25] MEDS: THEOPHYLLINE 24 HOUR 400 MG CAP.ER.24H PO SCH (09:03)
[2021-02-25] MEDS: DOXYCYCLINE 100 MG CAP PO SCH (09:03)
[2021-02-25] MEDS: VERAPAMIL 80 MG TAB PO SCH ×2 (09:03→12:41)
[2021-02-25] MEDS: predniSONE 20 MG TAB PO SCH (09:04)
[2021-02-25] MEDS: DULoxetine HCL 30 MG CAPSULE.DR PO SCH (09:04)
[2021-02-25] MEDS: CHOLECALCIFEROL 25 MCG (1000 IU) TABLET PO SCH (09:05)
[2021-02-25] MEDS: MAGNESIUM OXIDE 400 MG TAB PO SCH (09:05)
[2021-02-25] MEDS: FLUTICASONE 50MCG/SPRAY NASAL 16GM EA NOSTRIL SCH (10:39)
[2021-02-25] MEDS ORDERED: LIDOCAINE 2% GEL 30 ML TUBE TOPICAL SCH (11:15)
[2021-02-25] MEDS ORDERED: HYDROCORTISONE SUPPOSITORY 25 MG SUPP RECTAL SCH (11:15)
[2021-02-25 11:23] LABS: Glucose,Whole Blood 131 mg/dL (75-99)
--- NOTE | 2021-02-25 12:52 | P.PN ---
Subjective Progress Note Date: 02/25/21 Principal diagnosis: COPD exacerbation This is a pleasant 65-year-old female patient who is well-known to our service for severe COPD. She's had multiple admissions. She was recently admitted in December with COPD exacerbation complicated by COVID-19. Following that discharge on 01/26/2021 she was sent to [facility]. She was represented here to the emergency room yesterday with complaints of increasing shortness of breath. CoVID screen this admission was negative. Chest x-ray revealed evidence of COPD. She was initially placed on BiPAP and became more awake and alert. She is seen today in consultation on the regular medical floor. Currently sitting up in bed. Awake and alert in no acute distress. Dyspneic with minimal exertion. Chest x-ray reveals bilateral patchy infiltrates. She is currently maintaining good O2 saturations in the low 90s on 3 L/m per nasal cannula. She's afebrile. Hemodynamically stable. Rios blood gases revealed a PaO2 of 66, pCO2 83, pH 7.32. D-dimer 0.75. White count 14.0. Hemoglobin 10.4. Sodium 133. Potassium 3.3. Bicarb 43. Creatinine 0.87. Glucose 147. LDH 835. C-reactive protein 30.5. Calcitonin 0.81. [place] virus not detected. On 02/21/2021 patient seen in follow-up on medical surgical floor, she is resting comfortably in bed, she is currently on 3 L of oxygen breathing comfortably, she was on BiPAP earlier, with FiO2 of 40%, pulse ox on the BiPAP support was 97-98%, she has been afebrile, complaints of chest discomfort. Lung sounds reveal diffuse coarse crackles, no significant wheezing, at times she has a congested cough, with production. she has a history of recent covid in december. Chest x-ray showed patchy densities in the bilateral lungs. Her d-dimer was 0.75, and CT chest was completed showing no evidence of pulmonary embolism, and extensive right upper lobe airspace consolidation and atelectasis similar to old exam, patchy infiltrates in the remaining lung guzman, and there is improvement of the right lower lobe infiltrate compared to old exam. No new labs today. Patient remains on oral Lasix 40 mg twice daily, she is on Lovenox 40 mg daily, IV Solu-Medrol, and patient is improving she's feeling better, and she is close to her baseline. No fever or chills, blood cultures have shown no growth. On 02/22/2001 patient seen in follow-up. She states she's not feeling very good, but breathing appears to be stable, she is on 3 L of oxygen the pulse ox 98%, she does wear BiPAP support at bedtime and as needed during the day with FiO2 of 40%, blood pressures are elevated at 180/102, she is afebrile, no complaints of chest discomfort. No increased cough or congestion, lung sounds are diminished with a few rhonchi, she looks weak, she remains on oral diuretics, she is in -2.4 L fluid balance over the last 24 hours, her potassium level is low this morning at 2.9 and this is being replaced with a combination of oral and IV potassium replacements. The rest of the labs have been reviewed, her white blood cell count is 13.5, hemoglobin is 10.2, chloride is 93, CO2 is coming down and is down to 38 on today's labs, B1 is 33 and creatinine 0.85. Her pro-calcitonin level came back elevated at 0.81, patient is currently on doxycycline, cultures have been negative On 02/23/2021 patient is seen in follow-up on medical surgical floor, she sitting up in the recliner today, does not appear to be in any acute distress, she states her breathing is improved, lung sounds reveal diminished breath sounds with minimal crackles, patient has had no fever or chills, no complaints of chest discomfort, no hemoptysis, she is on doxycycline for empiric antibiotic coverage, she is on oral Lasix, her generalized edema has significantly improved, is on oral prednisone. She is in -1.7 L net fluid balance over the last 24 hours. Sinus mechanism with a controlled rate, today's labs have been noted, white blood cell count 16.4, hemoglobin is 11.1, CO2 is down to 37, the r est of the electrolytes and renal profile are unremarkable. Discharge to [facility] is pending, patient was retested for COVID-19 and was again negative. She is only complaint today is abdominal distention, patient feels a little constipated but abdomen is soft, nontender On 02/24/2021 patient seen in follow-up on medical surgical floor, she sitting up in the recliner, her breathing is stable, she remains on 3 L of oxygen with a pulse ox of 98%, she denies worsening dyspnea, cough, phlegm production. Her complaint today is abdominal pain, she feels bloated, she is complaining of constipation. She states she hasn't been able to go to the bathroom in the last several days. She has had no fever or chills, her abdomen is distended but soft, nontender. She remains on oral Lasix, she is on prophylactic Lovenox, empiric and the backs in the form of doxycycline., She is maintaining negative fluid balance. No fever or chills, she's had stable vitals overnight, discharge to [facility] is likely tomorrow The patient is seen today 02/25/2021 follow-up on the regular medical floor. Currently sitting up in bed. Awake and alert in no acute distress. Currently on 3 L/m per nasal cannula. Alternating with BiPAP 12/6 at 40% FiO2. Worsening shortness of breath, cough or congestion. Feeling back to her baseline. Yesterday's abdominal x-ray revealed nonobstructive bowel gas pattern. She did have a bowel movement. She is passing flatus. Blood cultures revealed no growth. She is continued on theophylline, Spiriva, penicillin, Singulair, albuterol. Lovenox for DVT prophylaxis. Empiric antibiotics in the form of doxycycline. Blood glucose 131. Objective - Vital Signs Vital signs: Vital Signs Temp 98.0 F 02/25/21 08:00 Pulse 94 02/25/21 08:00 Resp 20 02/25/21 08:00 BP 174/96 02/25/21 08:00 Pulse Ox 97 02/25/21 08:00 Intake & Output 02/24/21 02/25/21 02/25/21 18:59 06:59 18:59 Output Total 2500 250 850 Balance -2500 -250 -850 Weight 83.915 kg Output: Urine 2500 250 850 Other: Voiding Method Indwelling Catheter Indwelling Catheter Indwelling Catheter # Bowel Movements 2 - Exam GENERAL EXAM: Alert, very pleasant, 65-year-old female, on 3 L of oxygen with a pulse ox of 97% comfortable in no apparent distress. HEAD: Normocephalic/atraumatic. EYES: Normal reaction of pupils, equal size. Conjunctiva pink, sclera white. NOSE: Clear with pink turbinates. THROAT: No erythema or exudates. NECK: No masses, no JVD, no thyroid enlargement, no adenopathy. CHEST: No chest wall deformity. Symmetrical expansion. LUNGS: Equal air entry with diffuse coarse crackles, but no significant wheeze, rhonchi or dullness. CVS: Regular rate and rhythm, normal S1 and S2, no gallops, no murmurs, no rubs ABDOMEN: Soft, nontender. No hepatosplenomegaly, normal bowel sounds, no guarding or rigidity. EXTREMITIES: No clubbing, mild generalized no cyanosis, 2+ pulses and upper and lower extremities. MUSCULOSKELETAL: Muscle strength and tone normal. SPINE: No scoliosis or deformity SKIN: No rashes CENTRAL NERVOUS SYSTEM: No focal deficits, tone is normal in all 4 extremities. PSYCHIATRIC: Alert and oriented -3. Appropriate affect. Intact judgment and insight. - Labs CBC & Chem 7: 02/23/21 06:23 02/23/21 06:23 Labs: Abnormal Lab Results - Last 24 Hours (Table) 02/24/21 02/24/21 02/25/21 Range/Units 16:32 20:38 06:50 POC Glucose (mg/dL) 169 H 113 H 101 H (75-99) mg/dL 02/25/21 Range/Units 11:21 POC Glucose (mg/dL) 131 H (75-99) mg/dL Microbiology - Last 24 Hours (Table) 02/19/21 11:54 Blood Culture - Preliminary Blood No Growth after 120 hours 02/19/21 11:54 Blood Culture - Preliminary Blood No Growth after 120 hours Assessment and Plan Assessment: 1 Acute on chronic hypercapnic/hypoxemic respiratory failure secondary to severe chronic obstructive pulmonary disease, residual pneumonia. Negative COVID-19 2 Recent admission for COVID-19 pneumonia 3 Chronic hypoxemic respiratory failure, currently on home O2 at 3 L. 4 History of deep venous thrombosis. 5 History of hypertension. 6 History of rheumatoid arthritis. 7 History of colitis. 8 Osteopenia/osteoporosis. 9 Chronic back pain. 10 History of restless leg syndrome. 11 History of vulvar cancer. 12 Previous history of bowel resection. 13 Poor overall functional performance based on the above-mentioned multiple comorbidities Plan: The patient was seen and evaluated by Dr. Cade Continue oxygen at 3 L/m per nasal cannula Utilize BiPAP as needed 12/6 and 40% FiO2 Continue the current treatment plan Cleared for transfer back to [facility] today I, the cosigning physician, performed a history & physical examination of the patient. Lungs sounds crackles in the bilateral posterior bases. Maintaining good O2 saturations in the 90s on 3 L/m per nasal cannula. I discussed the assessment and plan of care with my nurse practitioner, Symone Ohara. I attest to the above note as dictated by her.
--- NOTE | 2021-02-25 13:12 | P.DS ---
Providers Date of admission: 02/19/21 14:04 Expected date of discharge: 02/25/21 Attending physician: Aj Owusu Consults: 02/19/21 14:06 Consult Physician Urgent Consulting Provider: Angel Cade Consult Reason/Comments: Respiratory failure, pneumonia, COVID-19 Do you want consulting provider notified?: Yes Primary care physician: [facility] Course: Presenting complaint Shortness of breath History of presenting complaint: This is a pleasant 65-year-old female . severe COPD. She's had multiple admissions. She was recently admitted in December with COPD exacerbation complicated by COVID-19. Following that discharge on 01/26/2021 she was sent to [facility]. She was presented here to the emergency room with complaints of increasing shortness of breath. CoVID screen this admission was negative. Chest x-ray revealed evidence of COPD. She was initially placed on BiPAP and became more awake and alert. Admitted with acute on chronic hypercapnic hypoxic respiratory failure. Placed on bronchodilators. Responded well. Patient is having rectal pain. Gets constipated. Did get an enema. Had a very large bowel movement. Today: With a nurse departmental buyer did look at the rectal area. Patient has a rectal fissure. Metamucil added. Also Anusol HC and lidocaine jelly twice a day added. Discussed with the patient. Discussion and discharge planning more than 35 minutes Consultation: Dr. Cade and partners from pulmonary On examination: VITAL SIGNS: 98, 94, 20, 1 54 x 84, 97% GENERAL APPEARANCE: Laying in bed, comfortable HEENT: Normal external appearance of nose and ear. Oral cavity normal EYES: Pupils equal. Conjunctiva normal. NECK: JVD not raised. Mass not palpable. RESPIRATORY: Respiratory effort increased. Decreased breath sounds CARDIOVASCULAR: First and second sounds normal. No edema. ABDOMEN: Soft. Liver and spleen not palpable. No tenderness. No mass palpable. PSYCHIATRY: Alert and oriented x3. Mood and affect normal. RECTAL exam: Anal fissure, perianal tags INVESTIGATIONS, reviewed in the clinical context: WBC 16.4 hemoglobin 11.1 platelets 397 potassium 4.9 creatinine 0.94 Chest CTA: Extensive right upper lobe airspace consolidation and atelectasis similar to previous exam. Straight patchy infiltrates in the remaining lung guzman. Some improvement Coronavirus [PCR]-not detected Assessment and plan: #1. Acute on chronic hypercapnic and hypoxemic respiratory failure secondary to severe COPD, and a residual COVID pneumonia. Tested negative for COVID-19 this admission Oxygen supplementation. Currently on 3 L of nasal cannula -Acute severe COPD exacerbation, an [id number] Continue with bronchodilators and oral steroids #2. Recent admission for COVID-19 pneumonia-recovered #3. Chronic hypoxic respiratory failure related to advanced COPD, currently on home oxygen at 3 L #4. History of DVT #5. Essential hypertension Continue with verapamil #6. Chronic rheumatoid arthritis Follow clinically. On prednisone 10 mg a day #7. History of colitis #8. Osteopenia/osteoporosis #9. Chronic back pain, likely osteoarthritis #10. restless leg syndrome Continue Requip #11. History of bowel resection -Acute on chronic medical debility PT OT -Painful and the fissures Anusol HC and lidocaine jelly twice a day before bowel movement ordered -Chronic constipation Metamucil added Disposition: [facility] Plan - Discharge Summary Discharge Rx Participant: Yes New Discharge Prescriptions: New Hydrocortisone Suppository [Anusol-Hc] 25 mg RECTAL BID supp Psyllium Husk 100% [Metamucil Packet] 6 gm PO BID #1 packet Albuterol Inhaler [Ventolin Hfa Inhaler] 2 puff INHALATION RT-QID puff Doxycycline [Vibramycin] 100 mg PO BID #14 cap Lidocaine 2% Gel [Xylocaine Jelly 2%] 1 applic TOPICAL BID applic Continue rOPINIRole HCL [Requip] 0.5 mg PO HS@2100 Cholecalciferol [Vitamin D3 (25 Mcg = 1000 Iu)] 1,000 units PO DAILY@0800 Magnesium Oxide [Mag-Ox] 400 mg PO DAILY@0800 Melatonin 3 mg PO HS@2100 Sodium Chloride [Richardson] 2 spray EA NOSTRIL Q2H PRN PRN Reason: Dry Nasal Passages Acetaminophen Tab [Tylenol] 650 mg PO Q4H PRN PRN Reason: Pain Or Fever > 100.5 Fluticasone Nasal [place] [Flonase Nasal [place]] 1 spr EA NOSTRIL DAILY@0800 Theophylline 24 Hour [Sekou-24] 400 mg PO DAILY@0800 Pantoprazole Sodium [Protonix] 40 mg PO DAILY@0600 Potassium Chloride 8 meq PO DAILY@1700 Multivitamins, Thera [Multivitamin (formulary)] 1 tab PO DAILY@1700 Ipratropium-Albuterol Nebulize [Duoneb 0.5 mg-3 mg/3 ml Soln] 3 ml INHALATION RT-QID PRN ml PRN Reason: Shortness Of Breath Or Wheezing Na Phos,M-B/Na Phos,Di-Ba [Fleet Adult] 133 ml RECTAL DAILY PRN PRN Reason: Constipation Glucerna Shake 120 ml PO TID@0800,1200,1700 DULoxetine HCL [Cymbalta] 30 mg PO DAILY@0800 INSULIN ASPART (NovoLOG) [NovoLOG (formulary)] See Protocol SQ ACHS Furosemide [Lasix] 40 mg PO BID@0600,1400 Montelukast [Singulair] 10 mg PO HS@2100 ALPRAZolam [Xanax] 0.5 mg PO TID PRN #9 tab PRN Reason: Anxiety Verapamil [Isoptin] 80 mg PO TID@0800,1200,1700 Magnesium Hydroxide [Milk of Magnesia Concentrate] 7,200 mg PO Q48H PRN PRN Reason: Constipation Budesonide [Pulmicort] 1 mg INHALATION RT-BID@0800,1700 predniSONE 10 mg PO DAILY@0800 levETIRAcetam [Keppra] 750 mg PO BID@0800,2100 Lidocaine 5% Patch [Lidoderm 5% Patch] 1 patch TOPICAL DAILY@0800 #3 patch Gabapentin [Neurontin] 100 mg PO TID@0600,1400,2200 #9 cap Discontinued Loratadine [Claritin] 10 mg PO DAILY@0800 guaiFENesin SYRUP 100MG/5ML [Robitussin] 200 mg PO Q6H PRN ml PRN Reason: Cough bisacodyL [Bisacodyl] 10 mg RECTAL DAILY PRN PRN Reason: Constipation acetaZOLAMIDE [Diamox] 250 mg PO BID@0800,1700 Morphine Sulfate [Ms Contin] 15 mg PO BID@0800,2100 Discharge Medication List rOPINIRole HCL [Requip] 0.5 mg PO HS@2100 03/24/20 [History] Cholecalciferol [Vitamin D3 (25 Mcg = 1000 Iu)] 1,000 units PO DAILY@0800 04/08/20 [History] Magnesium Oxide [Mag-Ox] 400 mg PO DAILY@0800 11/18/20 [History] Melatonin 3 mg PO HS@209910/11/20 [History] Acetaminophen Tab [Tylenol] 650 mg PO Q4H PRN 12/30/20 [History] Fluticasone Nasal [place] [Flonase Nasal [place]] 1 spr EA NOSTRIL DAILY@0812/30/20 [History] Multivitamins, Thera [Multivitamin (formulary)] 1 tab PO DAILY@169912/30/20 [History] Pantoprazole Sodium [Protonix] 40 mg PO DAILY@59912/30/20 [History] Potassium Chloride 8 meq PO DAILY@169912/30/20 [History] Sodium Chloride [Richardson] 2 spray EA NOSTRIL Q2H PRN 12/30/20 [History] Theophylline 24 Hour [Sekou-24] 400 mg PO DAILY@79912/30/20 [History] Ipratropium-Albuterol Nebulize [Duoneb 0.5 mg-3 mg/3 ml Soln] 3 ml INHALATION RT-QID PRN ml 01/05/21 [Rx] Budesonide [Pulmicort] 1 mg INHALATION RT-BID@0800,169901/15/21 [History] DULoxetine HCL [Cymbalta] 30 mg PO DAILY@0801/15/21 [History] Glucerna Shake 120 ml PO TID@0800,1200,169901/15/21 [History] INSULIN ASPART (NovoLOG) [NovoLOG (formulary)] See Protocol SQ ACHS 01/15/21 [History] Magnesium Hydroxide [Milk of Magnesia Concentrate] 7,200 mg PO Q48H PRN 01/15/21 [History] Na Phos,M-B/Na Phos,Di-Ba [Fleet Adult] 133 ml RECTAL DAILY PRN 01/15/21 [History] Verapamil [Isoptin] 80 mg PO TID@0800,1200,1700 01/15/21 [History] Furosemide [Lasix] 40 mg PO BID@0600,1400 02/19/21 [History] Montelukast [Singulair] 10 mg PO HS@209902/19/21 [History] levETIRAcetam [Keppra] 750 mg PO BID@0800,209902/19/21 [History] predniSONE 10 mg PO DAILY@0800 02/19/21 [History] ALPRAZolam [Xanax] 0.5 mg PO TID PRN #9 tab 02/25/21 [Rx] Albuterol Inhaler [Ventolin Hfa Inhaler] 2 puff INHALATION RT-QID puff 02/25/21 [Rx] Doxycycline [Vibramycin] 100 mg PO BID #14 cap 02/25/21 [Rx] Gabapentin [Neurontin] 100 mg PO TID@0600,1400,2200 #9 cap 02/25/21 [Rx] Hydrocortisone Suppository [Anusol-Hc] 25 mg RECTAL BID supp 02/25/21 [Rx] Lidocaine 2% Gel [Xylocaine Jelly 2%] 1 applic TOPICAL BID applic 02/25/21 [Rx] Lidocaine 5% Patch [Lidoderm 5% Patch] 1 patch TOPICAL DAILY@0800 #3 patch 02/25/21 [Rx] Psyllium Husk 100% [Metamucil Packet] 6 gm PO BID #1 packet 02/25/21 [Rx] Follow up Appointment(s)/Referral(s): Davin Causey DO [Primary Care Provider] - 1-2 days Patient Instructions/Handouts: Community Acquired Pneumonia (DC) Activity/Diet/Wound Care/Special Instructions: BiPap settings for HS 10/03/32%
--- NOTE | 2021-03-14 12:02 | CDI ---
Documentation Clarification Form Date: 02/1721 From: Marta Main Phone: Admit Date: 02/19/2021 02:04:00 PM Patient Name: Estelle Mohr Visit Number: [id number] Discharge Date: 02/25/2021 02:48:00 PM ATTENTION: The Clinical Documentation Specialists (CDI) and [facility] Coding Staff appreciate your assistance in clarifying documentation. Please respond to the clarification below the line at the bottom and electronically sign. The CDI & [facility] Coding staff will review the response and follow-up if needed. Please note: Queries are made part of the Legal Health Record. If you have any questions, please contact the author of this message via ITS. Dr. Aj Owusu, Conflicting documentation has been found in the medical record. As attending physician, please provide clarification. Dr Calixto documents in the H&P, PNs 02/20, 02/21 & 02/22 "Acute bilateral pneumonia possibly gram-negative pneumonia, hospital-acquired pneumonia with sepsis." Per your discharge summary sepsis was not included.] History/Risk Factors: Sequelae of COVID, RA, on waiting listing for lung transplant Clinical Indicators: WBC-14.0, Neutrophils-12.0, metabolic encephalopathy, gram negative pneumonia Treatment: IV Zoysn, IV Azithromycin Please clarify which diagnosis is most appropriate: [ ] Sepsis ruled out [ ] Sepsis ruled in [ ] Other (please specify) [ ] Unable to determine Possible sepsis MTDD
== END 2021-02-25 14:48 | DRG 871 ==
LOC: EC 11:30 → 4SSUR 14:04
PROVIDERS: ADMIT Hospitalist; ATTEND Hospitalist
PROC: 5A09557 Assistance with Respiratory Ventilation, Greater than 96 Consecutive Hours, Continuous Positive Airway Pressure (ICD-10-PCS; principal; 2021-02-19)
DX: A41.9 Sepsis, unspecified organism (principal); J15.6 Pneumonia due to other Gram-negative bacteria; J96.21 Acute and chronic respiratory failure with hypoxia; J96.22 Acute and chronic respiratory failure with hypercapnia; G93.41 Metabolic encephalopathy; J44.0 Chronic obstructive pulmonary disease with (acute) lower respiratory infection; J44.1 Chronic obstructive pulmonary disease with (acute) exacerbation; E87.1 Hypo-osmolality and hyponatremia; Z76.82 Awaiting organ transplant status; M06.9 Rheumatoid arthritis, unspecified; Z79.4 Long term (current) use of insulin; Z20.822 Contact with and (suspected) exposure to COVID-19; B94.8 Sequelae of other specified infectious and parasitic diseases; I10 Essential (primary) hypertension; G25.81 Restless legs syndrome; G89.29 Other chronic pain; M54.9 Dorsalgia, unspecified; F90.9 Attention-deficit hyperactivity disorder, unspecified type; F41.9 Anxiety disorder, unspecified; E78.5 Hyperlipidemia, unspecified; E87.6 Hypokalemia; K59.09 Other constipation; M81.0 Age-related osteoporosis without current pathological fracture; D64.9 Anemia, unspecified; K60.2 Anal fissure, unspecified; H91.90 Unspecified hearing loss, unspecified ear; E66.9 Obesity, unspecified; Z68.36 Body mass index [BMI] 36.0-36.9, adult; Z99.81 Dependence on supplemental oxygen; Z79.891 Long term (current) use of opiate analgesic; Z79.51 Long term (current) use of inhaled steroids; Z79.899 Other long term (current) drug therapy; Z87.891 Personal history of nicotine dependence; Z86.718 Personal history of other venous thrombosis and embolism; Z87.01 Personal history of pneumonia (recurrent); Z90.49 Acquired absence of other specified parts of digestive tract; Z90.710 Acquired absence of both cervix and uterus; Z96.651 Presence of right artificial knee joint; Z86.69 Personal history of other diseases of the nervous system and sense organs; Z85.44 Personal history of malignant neoplasm of other female genital organs; Z85.038 Personal history of other malignant neoplasm of large intestine; Z90.721 Acquired absence of ovaries, unilateral; Z71.3 Dietary counseling and surveillance; Z98.890 Other specified postprocedural states; Z88.5 Allergy status to narcotic agent; Z88.8 Allergy status to other drugs, medicaments and biological substances; Z91.048 Other nonmedicinal substance allergy status; Z80.0 Family history of malignant neoplasm of digestive organs; Z80.49 Family history of malignant neoplasm of other genital organs; Z82.5 Family history of asthma and other chronic lower respiratory diseases
CPT/HCPCS: 36415; 36600; 71045; 71275; 74019; 80053; 82728; 82805; 83605; 83615; 83735; 83880; 84145; 84484; 85025; 85379; 85610; 85730; 86140; 87040; 87635; 93005; 94640; 94660; 94760; 99285

== ENCOUNTER 2021-04-23 20:28 | Inpatient (IN) | payer MEDICARE, OTHER ==
--- NOTE | 2021-04-23 21:23 | ED ---
General Adult HPI - General Chief complaint: Fall Stated complaint: Fall,Back Pain Time Seen by Provider: 04/23/21 20:48 Source: patient, EMS, RN notes reviewed, old records reviewed Mode of arrival: EMS Limitations: no limitations - History of Present Illness Initial comments: 66-year-old female with fall, near syncope. [facility] She had moved in with her sister. She is walking with a walker but had not really been walking much while at the [facility]. She became lightheaded and fell, there was a minor head trauma she also fell injuring her low back and tailbone. And injured her right elbow. She denies any preceding chest pain or palpitations. She does have history of COPD and is on home oxygen . No fever. No diarrhea or vomiting. - Related Data Home Medications Medication Instructions Recorded Confirmed rOPINIRole HCL [Requip] 0.5 mg PO HS@2100 03/24/20 02/19/21 Cholecalciferol [Vitamin D3 (25 1,000 units PO DAILY@0800 04/08/20 02/19/21 Mcg = 1000 Iu)] Magnesium Oxide [Mag-Ox] 400 mg PO DAILY@0800 09/15/20 02/19/21 Melatonin 3 mg PO HS@2100 10/11/20 02/19/21 Acetaminophen Tab [Tylenol] 650 mg PO Q4H PRN 12/30/20 02/19/21 Fluticasone Nasal [place] [Flonase 1 spr EA NOSTRIL DAILY@0800 12/30/20 02/19/21 Nasal [place]] Multivitamins, Thera [Multivitamin 1 tab PO DAILY@1700 12/30/20 02/19/21 (formulary)] Pantoprazole Sodium [Protonix] 40 mg PO DAILY@0600 12/30/20 02/19/21 Potassium Chloride 8 meq PO DAILY@1700 12/30/20 02/19/21 Sodium Chloride [Cole] 2 spray EA NOSTRIL Q2H PRN 12/30/20 02/19/21 Theophylline 24 Hour [Sekou-24] 400 mg PO DAILY@0800 12/30/20 02/19/21 Budesonide [Pulmicort] 1 mg INHALATION RT-BID@0800,1700 01/15/21 02/19/21 DULoxetine HCL [Cymbalta] 30 mg PO DAILY@0800 01/15/21 02/19/21 Glucerna Shake 120 ml PO TID@0800,1200,1700 01/15/21 02/19/21 INSULIN ASPART (NovoLOG) [NovoLOG See Protocol SQ ACHS 01/15/21 02/19/21 (formulary)] Magnesium Hydroxide [Milk of 7,200 mg PO Q48H PRN 01/15/21 02/19/21 Magnesia Concentrate] Na Phos,M-B/Na Phos,Di-Ba [Fleet 133 ml RECTAL DAILY PRN 01/15/21 02/19/21 Adult] Verapamil [Isoptin] 80 mg PO TID@0800,1200,1700 01/15/21 02/19/21 Furosemide [Lasix] 40 mg PO BID@0600,1400 02/19/21 02/19/21 Montelukast [Singulair] 10 mg PO HS@2100 02/19/21 02/19/21 levETIRAcetam [Keppra] 750 mg PO BID@0800,2100 02/19/21 02/19/21 predniSONE 10 mg PO DAILY@0800 02/19/21 02/19/21 Previous Rx's Medication Instructions Recorded Ipratropium-Albuterol Nebulize 3 ml INHALATION RT-QID PRN ml 01/05/21 [Duoneb 0.5 mg-3 mg/3 ml Soln] ALPRAZolam [Xanax] 0.5 mg PO TID PRN #9 tab 02/25/21 Albuterol Inhaler [Ventolin Hfa 2 puff INHALATION RT-QID puff 02/25/21 Inhaler] Doxycycline [Vibramycin] 100 mg PO BID #14 cap 02/25/21 Gabapentin [Neurontin] 100 mg PO TID@0600,1400,2200 #9 cap 02/25/21 Hydrocortisone Suppository 25 mg RECTAL BID supp 02/25/21 [Anusol-Hc] Lidocaine 2% Gel [Xylocaine Jelly 1 applic TOPICAL BID applic 02/25/21 2%] Lidocaine 5% Patch [Lidoderm 5% 1 patch TOPICAL DAILY@0800 #3 patch 02/25/21 Patch] Psyllium Husk 100% [Metamucil 6 gm PO BID #1 packet 02/25/21 Packet] Allergies Allergy/AdvReac Type Severity Reaction Status Date / Time infliximab [From Remicade] Allergy Dyspnea/HIV Verified 02/19/21 12:08 ES propoxyphene [From Darvon] Allergy Rash/Hives Verified 02/19/21 12:08 adhesive tape AdvReac "is hard Verified 02/19/21 12:08 on skin" Review of Systems ROS Statement: Those systems with pertinent positive or pertinent negative responses have been documented in the HPI. ROS Other: All systems not noted in ROS Statement are negative. Past Medical History Past Medical History: Cancer, COPD, Deep Vein Thrombosis (DVT), Hypertension, Pneumonia, Rheumatoid Arthritis (RA) Additional Past Medical History / Comment(s): hearing difficulty currently, colitis, osteopenia, hx cancer of appendix, uses oxygen 2L continuous. chronic back pain, restless leg, recent admission for exacerbation of COPD. 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 Colonoscopy 2016. pain procedure at [facility] with Dr Ty. TAD with unilateral oophorectomy 1983. Partial vulvectomy in 2000. Past Anesthesia/Blood Transfusion Reactions: No Reported Reaction Additional Past Anesthesia/Blood Transfusion Reaction / Comment(s): states is not supposed to have general anesthesia R/T awaiting lung transplant Past Psychological History: ADD/ADHD, Anxiety Smoking Status: Former smoker Past Alcohol Use History: None Reported Past Drug Use History: None Reported - Past Family History Father Family Medical History: Cancer, COPD Additional Family Medical History / Comment(s): COLON cancer Mother Family Medical History: Cancer Additional Family Medical History / Comment(s): ESOPHAGUS cancer Sister(s) Family Medical History: Cancer Additional Family Medical History / Comment(s): CERVICAL cancer General Exam Limitations: no limitations General appearance: alert, in no apparent distress Head exam: Present: atraumatic, normocephalic Eye exam: Present: normal appearance, PERRL ENT exam: Present: normal exam Neck exam: Present: normal inspection. Absent: tenderness, meningismus Respiratory exam: Present: wheezes, decreased breath sounds. Absent: respiratory distress Cardiovascular Exam: Present: regular rate, normal rhythm GI/Abdominal exam: Present: soft. Absent: distended, tenderness, guarding Extremities exam: Present: joint swelling (Hematoma and skin tear to the right elbow normal range of motion) Neurological exam: Present: alert Skin exam: Present: warm, dry. Absent: cyanosis, diaphoretic Course Vital Signs 04/23/21 20:31 Temperature 98.2 F Pulse Rate 77 Respiratory 16 Rate Blood Pressure 137/62 O2 Sat by Pulse 97 Oximetry EKG Findings - EKG Comments: EKG Findings:: EKG: Normal sinus rhythm, rate of 85, LA interval 142, QRS duration 60, QTC 447, tremor artifact, no ST segment elevation. Medical Decision Making - Medical Decision Making 58-year-old female with weakness, fall. Workup for traumatic injury is negative. CT brain negative for intracranial hemorrhage. Patient does have a hematoma of the right elbow but no acute fracture. She has stable chronic lab abnormalities, anemia, and leukocytosis. She has evidence of UTI and chest x- ray does reveal concern for pneumonia. She started on IV antibiotics. She will be admitted. discussed with Dr. Cortes who will admit. - Lab Data Result diagrams: 04/23/21 21:11 04/23/21 21:11 Lab Results 04/23/21 04/23/21 04/23/21 Range/Units 21:11 21:11 21:11 WBC 16.4 H (3.8-10.6) k/uL RBC 3.82 (3.80-5.40) m/uL Hgb 9.8 L (11.4-16.0) gm/dL Hct 31.3 L (34.0-46.0) % MCV 82.1 D (80.0-100.0) fL MCH 25.6 (25.0-35.0) pg MCHC 31.2 (31.0-37.0) g/dL RDW 17.7 H (11.5-15.5) % Plt Count 334 (150-450) k/uL MPV 7.6 Neutrophils % 84 % Lymphocytes % 10 % Monocytes % 4 % Eosinophils % 1 % Basophils % 0 % Neutrophils # 13.8 H (1.3-7.7) k/uL Lymphocytes # 1.6 (1.0-4.8) k/uL Monocytes # 0.6 (0-1.0) k/uL Eosinophils # 0.1 (0-0.7) k/uL Basophils # 0.1 (0-0.2) k/uL Hypochromasia Moderate Anisocytosis Slight PT 9.6 (9.0-12.0) sec INR 0.9 (<1.2) APTT 22.2 (22.0-30.0) sec Sodium (137-145) mmol/L Potassium (3.5-5.1) mmol/L Chloride (98-107) mmol/L Carbon Dioxide (22-30) mmol/L Anion Gap mmol/L BUN (7-17) mg/dL Creatinine (0.52-1.04) mg/dL Est GFR (CKD-EPI)AfAm (>60 ml/min/1.73 sqM) Est GFR (CKD-EPI)NonAf (>60 ml/min/1.73 sqM) Glucose (74-99) mg/dL Plasma Lactic Acid Osmani (0.7-2.0) mmol/L Calcium (8.4-10.2) mg/dL Magnesium (1.6-2.3) mg/dL Total Bilirubin (0.2-1.3) mg/dL AST (14-36) U/L ALT (4-34) U/L Alkaline Phosphatase (38-126) U/L Troponin I (0.000-0.034) ng/mL Total Protein (6.3-8.2) g/dL Albumin (3.5-5.0) g/dL Urine Color Yellow Urine Appearance Cloudy H (Clear) Urine pH 7.0 (5.0-8.0) Ur Specific [place] 1.011 (1.001-1.035) Urine Protein Negative (Negative) Urine Glucose (UA) Negative (Negative) Urine Ketones Negative (Negative) Urine Blood Negative (Negative) Urine Nitrite Positive H (Negative) Urine Bilirubin Negative (Negative) Urine Urobilinogen <2.0 (<2.0) mg/dL Ur Leukocyte Esterase Large H (Negative) Urine RBC 2 (0-5) /hpf Urine WBC 9 H (0-5) /hpf Ur Squamous Epith Cells 2 (0-4) /hpf Amorphous Sediment Rare H (None) /hpf Urine Bacteria Occasional H (None) /hpf Urine Mucus Rare H (None) /hpf 04/23/21 04/23/21 04/23/21 Range/Units 21:11 21:11 21:11 WBC (3.8-10.6) k/uL RBC (3.80-5.40) m/uL Hgb (11.4-16.0) gm/dL Hct (34.0-46.0) % MCV (80.0-100.0) fL MCH (25.0-35.0) pg MCHC (31.0-37.0) g/dL RDW (11.5-15.5) % Plt Count (150-450) k/uL MPV Neutrophils % % Lymphocytes % % Monocytes % % Eosinophils % % Basophils % % Neutrophils # (1.3-7.7) k/uL Lymphocytes # (1.0-4.8) k/uL Monocytes # (0-1.0) k/uL Eosinophils # (0-0.7) k/uL Basophils # (0-0.2) k/uL Hypochromasia Anisocytosis PT (9.0-12.0) sec INR (<1.2) APTT (22.0-30.0) sec Sodium 135 L (137-145) mmol/L Potassium 4.0 (3.5-5.1) mmol/L Chloride 94 L (98-107) mmol/L Carbon Dioxide 39 H (22-30) mmol/L Anion Gap 2 mmol/L BUN 15 (7-17) mg/dL Creatinine 0.60 (0.52-1.04) mg/dL Est GFR (CKD-EPI)AfAm >90 (>60 ml/min/1.73 sqM) Est GFR (CKD-EPI)NonAf >90 (>60 ml/min/1.73 sqM) Glucose 98 (74-99) mg/dL Plasma Lactic Acid Osmani 1.3 (0.7-2.0) mmol/L Calcium 8.6 (8.4-10.2) mg/dL Magnesium 1.9 (1.6-2.3) mg/dL Total Bilirubin 0.2 (0.2-1.3) mg/dL AST 24 (14-36) U/L ALT 13 (4-34) U/L Alkaline Phosphatase 66 (38-126) U/L Troponin I <0.012 (0.000-0.034) ng/mL Total Protein 5.6 L (6.3-8.2) g/dL Albumin 3.2 L (3.5-5.0) g/dL Urine Color Urine Appearance (Clear) Urine pH (5.0-8.0) Ur Specific [place] (1.001-1.035) Urine Protein (Negative) Urine Glucose (UA) (Negative) Urine Ketones (Negative) Urine Blood (Negative) Urine Nitrite (Negative) Urine Bilirubin (Negative) Urine Urobilinogen (<2.0) mg/dL Ur Leukocyte Esterase (Negative) Urine RBC (0-5) /hpf Urine WBC (0-5) /hpf Ur Squamous Epith Cells (0-4) /hpf Amorphous Sediment (None) /hpf Urine Bacteria (None) /hpf Urine Mucus (None) /hpf Disposition Clinical Impression: Fall, UTI (urinary tract infection), Pneumonia Disposition: ADMITTED IP TO THIS [facility] Condition: Stable Is patient prescribed a controlled substance at d/c from ED?: No Referrals: Gavin Riggs [Primary Care Provider] - 1-2 days Decision to Admit Reason: Admit from EC Decision Date: 04/23/21 Decision Time: 22:56
[2021-04-23 22:02] LABS: INR 0.9 (<1.2); Partial Thromboplastin Time 22.2 sec (22.0-30.0); Prothrombin Time 9.6 sec (9.0-12.0)
--- NOTE | 2021-04-23 22:06 | CT ---
EXAMINATION TYPE: CT brain lion wo con DATE OF EXAM: 04/23/2021 COMPARISON: Head CT scan 01/21/2021 HISTORY: pain in head and neck from fall today CT DLP: 1419.1 mGycm Automated exposure control for dose reduction was used. The cervical vertebra have fairly normal alignment. There is no significant disc space narrowing. The skull base is intact. Temporal bones are intact. There is mild cerebral atrophy. There is no mass effect nor midline shift. There is no sign of intrac ranial hemorrhage. The calvarium is intact. IMPRESSION: Cerebral atrophy. No acute intracranial abnormality. No change. Minor degenerative changes in the cervical spine. No fracture.
[2021-04-23 22:14] LABS: Anisocytosis Slight; Basophils # (A) 0.1 k/uL (0-0.2); Basophils % (A) 0 %; Eosinophils # (A) 0.1 k/uL (0-0.7); Eosinophils % (A) 1 %; HCT 31.3 % (34.0-46.0); HGB 9.8 gm/dL (11.4-16.0); Hypochromasia Moderate; Lymphocytes # (A) 1.6 k/uL (1.0-4.8); Lymphocytes % (A) 10 %; MCH 25.6 pg (25.0-35.0); MCHC 31.2 g/dL (31.0-37.0); Mean Platelet Volume 7.6; Monocytes # (A) 0.6 k/uL (0-1.0); Monocytes % (A) 4 %; Neutrophils # (A) 13.8 k/uL (1.3-7.7); Neutrophils % (A) 84 %; Platelet Count 334 k/uL (150-450); RBC 3.82 m/uL (3.80-5.40); RDW 17.7 % (11.5-15.5); WBC 16.4 k/uL (3.8-10.6)
[2021-04-23 22:17] LABS: Amorphous Sediment,Urine Rare /hpf; Appearance,Urine Cloudy (Clear); Bacteria,Urine Occasional /hpf; Bilirubin,Urine Negative (Negative); Blood,Urine Negative (Negative); Color,Urine Yellow; Glucose,Urine (UA) Negative (Negative); Ketones,Urine Negative (Negative); Leukocyte Esterase,Urine Large (Negative); Mucus,Urine Rare /hpf; Nitrite,Urine Positive (Negative); Protein,Urine Negative (Negative); RBC,Urine 2 /hpf (0-5); Specific Gravity,Urine 1.011 (1.001-1.035); Squamous Epithelial Cell,Urine 2 /hpf (0-4); Urobilinogen,Urine <2.0 mg/dL (<2.0); WBC,Urine 9 /hpf (0-5)
--- NOTE | 2021-04-23 22:17 | XR ---
EXAMINATION TYPE: XR elbow complete RT DATE OF EXAM: 04/23/2021 COMPARISON: NONE HISTORY: Fall. Pain. TECHNIQUE: 3 views FINDINGS: I see no fracture nor dislocation. Elbow joint spaces are fairly normal. There is no sign o f joint effusion. There appears to be some soft tissue swelling over the olecranon process. Exam limi nellie by the bandages. IMPRESSION: Posterior soft tissue swelling. Olecranon bursitis is possible. No fracture.
[2021-04-23 22:19] LABS: MCV 82.1 fL (80.0-100.0)
--- NOTE | 2021-04-23 22:19 | XR ---
EXAMINATION TYPE: XR chest 1V DATE OF EXAM: 04/23/2021 COMPARISON: 02/20/2021 HISTORY: Weakness TECHNIQUE: FINDINGS: There is some patchy airspace infiltrate right upper lobe. The other lung guzman are clear. There is no heart failure. Heart size is normal. Costophrenic angles are clear. IMPRESSION: There is a 5 x 3 cm area of airspace pneumonia in the right upper lobe which appears new compared to old exam. No heart failure. No acute rib fracture seen.
[2021-04-23 22:20] LABS: ALT 13 U/L (4-34); AST 24 U/L (14-36); African American GFR (CKD) >90 (>60 ml/min/1.73 sqM); Albumin 3.2 g/dL (3.5-5.0); Alkaline Phosphatase 66 U/L (38-126); Anion Gap 2 mmol/L; Blood Urea Nitrogen 15 mg/dL (7-17); Calcium 8.6 mg/dL (8.4-10.2); Carbon Dioxide 39 mmol/L (22-30); Chloride 94 mmol/L (98-107); Glucose 98 mg/dL (74-99); Magnesium 1.9 mg/dL (1.6-2.3); Non-African American GFR(CKD) >90 (>60 ml/min/1.73 sqM); Sodium 135 mmol/L (137-145); Total Bilirubin 0.2 mg/dL (0.2-1.3); Total Protein 5.6 g/dL (6.3-8.2)
--- NOTE | 2021-04-23 22:21 | XR ---
EXAMINATION TYPE: XR lumbosacral spine min 4V DATE OF EXAM: 04/23/2021 COMPARISON: NONE HISTORY: Back pain. Fall. TECHNIQUE: 5 views FINDINGS: The lumbar vertebra have normal alignment. There is no lumbar compression fracture. Abdomin al aorta is atheromatous. Sacroiliac joints appear intact. There is almost 50% wedging of T12 vertebr a. IMPRESSION: T12 compression fractures probably not changed compared to abdomen x-ray of 02/24/2021. No acute fracture of the lumbar spine.
--- NOTE | 2021-04-23 22:22 | XR ---
EXAMINATION TYPE: XR pelvis AP view DATE OF EXAM: 04/23/2021 COMPARISON: None HISTORY: Fall. Pain. TECHNIQUE: Single view FINDINGS: The pelvic ring appears intact. The proximal femurs and hip joints are intact. There is no hip dysplasia. Sacroiliac joints are intact. IMPRESSION: Normal pelvis. No fracture.
[2021-04-23] MEDS ORDERED: cefTRIAXone IN SWFI 1,000 MG/10 ML SYRINGE IVP STA (22:25)
[2021-04-23] MEDS ORDERED: NALOXONE 0.4 MG/ML 1 ML VIAL IV PRN (22:48)
[2021-04-23] MEDS ORDERED: HYDROmorphone 0.5 MG/0.5 ML SYRINGE IVP STA (23:02)
[2021-04-24] MEDS ORDERED: ALPRAZolam 0.5 MG TAB PO PRN (00:17)
--- NOTE | 2021-04-24 00:41 | P.HPIM ---
History of Present Illness H&P Date: 04/23/21 Chief Complaint: near syncope, fall 66-year-old female with chronic hypoxic and hypercapnic respiratory failure, Patient comes in due to near syncope event. She was just discharged from extended care facility today went to her sister's house. She is been feeling very weak she was discharges she exhausted her 60 days. She was still feeling weak however she got up on her own using the walker trying to go to the bathroom when she felt dizzy lightheaded blurry vision and felt she fell on her right side she's not sure if she lost consciousness denies any nausea vomiting denies any palpitations denies any chest pain or shortness of breath. She called on her sister to come and help her with decided to bring her to the hospital. Patient admits that she still feeling weak and probably needs more rehab however again she is exhausted her insurance allowance for extended care facility and decided to go to her sister was willing to take care of her with some therapy. Overall she denies any changes in her overall health she denies any fevers or chills denies any new cough denies any worsening shortness of breath. She is currently complaining of pain in the back of her head and in her right elbow not currently on any blood thinners Imaging in the ED showed no acute fractures patient has hematoma over the right elbow Blood work showed leukocytosis chronic anemia EKG showed normal sinus rhythm, urine was suggestive of urinary tract infection patient does admit to frequent urination and some dysuria Patient doubts any seizure-like activity, denies any tongue biting or loss of bladder or bowel control Review of Systems Pertinent positives as noted in HPI. All other systems were reviewed and are negative Past Medical History Past Medical History: Cancer, COPD, Deep Vein Thrombosis (DVT), Hypertension, Pneumonia, Rheumatoid Arthritis (RA) Additional Past Medical History / Comment(s): hearing difficulty currently, colitis, osteopenia, hx cancer of appendix, uses oxygen 2L continuous. chronic back pain, restless leg, recent admission for exacerbation of COPD. 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 Colonoscopy 2017. pain procedure at [facility] with Dr Ty. [facility] with unilateral oophorectomy 1983. Partial vulvectomy in 2000. Past Anesthesia/Blood Transfusion Reactions: No Reported Reaction Additional Past Anesthesia/Blood Transfusion Reaction / Comment(s): states is not supposed to have general anesthesia R/T awaiting lung transplant Past Psychological History: ADD/ADHD, Anxiety Smoking Status: Former smoker Past Alcohol Use History: None Reported Past Drug Use History: None Reported - Past Family History Father Family Medical History: Cancer, COPD Additional Family Medical History / Comment(s): COLON cancer Mother Family Medical History: Cancer Additional Family Medical History / Comment(s): ESOPHAGUS cancer Sister(s) Family Medical History: Cancer Additional Family Medical History / Comment(s): CERVICAL cancer Medications and Allergies Home Medications Medication Instructions Recorded Confirmed Type rOPINIRole HCL [Requip] 0.5 mg PO HS@2100 03/24/20 02/19/21 History Cholecalciferol [Vitamin D3 (25 1,000 units PO DAILY@0800 04/08/20 02/19/21 His tory Mcg = 1000 Iu)] Magnesium Oxide [Mag-Ox] 400 mg PO DAILY@0800 09/15/20 02/19/21 History Melatonin 3 mg PO HS@2100 10/11/20 02/19/21 History Acetaminophen Tab [Tylenol] 650 mg PO Q4H PRN 12/30/20 02/19/21 History Fluticasone Nasal [place] [Flonase 1 spr EA NOSTRIL DAILY@0800 12/30/20 02/19/21 History Nasal [place]] Multivitamins, Thera [Multivitamin 1 tab PO DAILY@1700 12/30/20 02/19/21 History (formulary)] Pantoprazole Sodium [Protonix] 40 mg PO DAILY@0600 12/30/20 02/19/21 History Potassium Chloride 8 meq PO DAILY@1700 12/30/20 02/19/21 History Sodium Chloride [[place]] 2 spray EA NOSTRIL Q2H PRN 12/30/20 02/19/21 History Theophylline 24 Hour [Sekou-24] 400 mg PO DAILY@0800 12/30/20 02/19/21 History Ipratropium-Albuterol Nebulize 3 ml INHALATION RT-QID PRN ml 01/05/21 02/19/21 Rx [Duoneb 0.5 mg-3 mg/3 ml Soln] Budesonide [Pulmicort] 1 mg INHALATION RT-BID@0800,1700 01/15/21 02/19/21 History DULoxetine HCL [Cymbalta] 30 mg PO DAILY@0800 01/15/21 02/19/21 History Glucerna Shake 120 ml PO TID@0800,1200,1700 01/15/21 02/19/21 History INSULIN ASPART (NovoLOG) [NovoLOG See Protocol SQ ACHS 01/15/21 02/19/21 History (formulary)] Magnesium Hydroxide [Milk of 7,200 mg PO Q48H PRN 01/15/21 02/19/21 History Magnesia Concentrate] Na Phos,M-B/Na Phos,Di-Ba [Fleet 133 ml RECTAL DAILY PRN 01/15/21 02/19/21 History Adult] Verapamil [Isoptin] 80 mg PO TID@0800,1200,1700 01/15/21 02/19/21 History Furosemide [Lasix] 40 mg PO BID@0600,1400 02/19/21 02/19/21 History Montelukast [Singulair] 10 mg PO HS@209902/19/21 02/19/21 History levETIRAcetam [Keppra] 750 mg PO BID@0800,2100 02/19/21 02/19/21 History predniSONE 10 mg PO DAILY@0800 02/19/21 02/19/21 History ALPRAZolam [Xanax] 0.5 mg PO TID PRN #9 tab 02/25/21 Rx Albuterol Inhaler [Ventolin Hfa 2 puff INHALATION RT-QID puff 02/25/21 Rx Inhaler] Doxycycline [Vibramycin] 100 mg PO BID #14 cap 02/25/21 Rx Gabapentin [Neurontin] 100 mg PO TID@0600,1400,2200 #9 cap 02/25/21 Rx Hydrocortisone Suppository 25 mg RECTAL BID supp 02/25/21 Rx [Anusol-Hc] Lidocaine 2% Gel [Xylocaine Jelly 1 applic TOPICAL BID applic 02/25/21 Rx 2%] Lidocaine 5% Patch [Lidoderm 5% 1 patch TOPICAL DAILY@0800 #3 patch 02/25/21 Rx Patch] Psyllium Husk 100% [Metamucil 6 gm PO BID #1 packet 02/25/21 Rx Packet] Allergies Allergy/AdvReac Type Severity Reaction Status Date / Time infliximab [From Remicade] Allergy Dyspnea/HIV Verified 02/19/21 12:08 ES propoxyphene [From Darvon] Allergy Rash/Hives Verified 02/19/21 12:08 adhesive tape AdvReac "is hard Verified 02/19/21 12:08 on skin" Physical Exam Vitals: Vital Signs Temp Pulse Resp BP Pulse Ox 04/24/21 00:09 77 16 130/59 98 04/23/21 20:31 98.2 F 77 16 137/62 97 Intake and Output 04/23/21 04/23/21 04/24/21 14:59 22:59 06:59 Other: Weight 74.389 kg Constitutional: No acute distress, conversant, pleasant Eyes: Anicteric sclerae, moist conjunctiva, Pupils equal round reactive to light ENMT: NC/AT Oropharynx clear, no erythema, or exudates Neck: Supple, FROM, no masses, or JVD No carotid bruits No thyromegaly Lungs: Audible breath sounds throughout decreased breath sounds at lung basis prolonged expiratory phase no wheezing Clear to percussion Normal respiratory effort, no accessory muscle use Cardiovascular: Heart regular in rate and rhythm, No murmurs, gallops, or rubs Trace peripheral leg edema bilaterally Abdominal: Mild distention in the epigastric region, slight discomfort to suprapubic region no guarding, rebound or rigidity Abdomen moving with respiration Normoactive bowel sounds No hepatomegaly, No splenomegaly No palpable mass No abdominal wall hernia noted Skin: Normal temperature, tone, texture, turgor No induration No subcutaneous nodules Hematoma over the right elbow Extremities: No digital cyanosis No clubbing Pedal pulses intact and symmetrical Radial pulses intact and symmetrical No calf tenderness Psychiatric: Alert and oriented to person, place Appropriate affect fair judgement Neuro Muscles Strength 4/5 in bilateral upper extremities, 3/5 right lateral lower extremities Sensation to light touch grossly present throughout Cranial nerves II-XII grossly intact No focal sensory deficits Lymphatics: no palpable cervical or supraclavicular , or inguinal lymph nodes Results CBC & Chem 7: 04/23/21 21:11 04/23/21 21:11 Labs: Abnormal Lab Results - Last 24 Hours (Table) 04/23/21 04/23/21 04/23/21 Range/Units 21:11 21:11 21:11 WBC 16.4 H (3.8-10.6) k/uL Hgb 9.8 L (11.4-16.0) gm/dL Hct 31.3 L (34.0-46.0) % RDW 17.7 H (11.5-15.5) % Neutrophils # 13.8 H (1.3-7.7) k/uL Sodium 135 L (137-145) mmol/L Chloride 94 L (98-107) mmol/L Carbon Dioxide 39 H (22-30) mmol/L Total Protein 5.6 L (6.3-8.2) g/dL Albumin 3.2 L (3.5-5.0) g/dL Urine Appearance Cloudy H (Clear) Urine Nitrite Positive H (Negative) Ur Leukocyte Esterase Large H (Negative) Urine WBC 9 H (0-5) /hpf Amorphous Sediment Rare H (None) /hpf Urine Bacteria Occasional H (None) /hpf Urine Mucus Rare H (None) /hpf Assessment and Plan Assessment: Near-syncope UTI Right elbow hematoma Chronic anemia Chronic hypoxic rested failure and COPD Restless leg syndrome History of seizures Hypertension GERD Plan Full precautions Follow-up urine cultures Rocephin daily Monitor hemoglobin Monitor renal function PT/OT eval Resume home medications Follow-up blood work break out worker consult for discharge planning Patient is full code DVT prophylaxis heparin subcu 3 times a day Anticipated length of stay more than 2 midnights Anticipated discharge to subacute rehab or home with PT
[2021-04-24] MEDS: ACETAMINOPHEN TAB 325 MG TAB PO PRN ×2 (01:01→09:10)
[2021-04-24] MEDS: MORPHINE SULFATE IR 15 MG TABLET PO PRN ×2 (01:02→09:09)
[2021-04-24] MEDS: MELATONIN 3 MG TABLET PO SCH ×2 (01:07→21:01)
[2021-04-24] MEDS: MONTELUKAST 10 MG TAB PO SCH ×2 (01:07→21:01)
[2021-04-24] MEDS: GABAPENTIN 100 MG CAP PO SCH ×4 (01:07→21:01)
[2021-04-24] MEDS: PANTOPRAZOLE 40 MG TABLET PO SCH (06:05)
[2021-04-24 06:46] LABS: Anisocytosis Slight; Basophils # (A) 0.1 k/uL (0-0.2); Basophils % (A) 0 %; Eosinophils # (A) 0.3 k/uL (0-0.7); Eosinophils % (A) 2 %; HCT 27.6 % (34.0-46.0); HGB 8.9 gm/dL (11.4-16.0); Hypochromasia Moderate; Lymphocytes # (A) 1.8 k/uL (1.0-4.8); Lymphocytes % (A) 14 %; MCH 26.6 pg (25.0-35.0); MCHC 32.2 g/dL (31.0-37.0); MCV 82.7 fL (80.0-100.0); Mean Platelet Volume 7.9; Monocytes # (A) 0.7 k/uL (0-1.0); Monocytes % (A) 6 %; Neutrophils # (A) 9.9 k/uL (1.3-7.7); Neutrophils % (A) 77 %; Platelet Count 266 k/uL (150-450); RBC 3.34 m/uL (3.80-5.40); RDW 17.7 % (11.5-15.5); WBC 12.9 k/uL (3.8-10.6)
[2021-04-24 06:52] LABS: Glucose,Whole Blood 84 mg/dL (75-99)
[2021-04-24 07:00] LABS: ALT 11 U/L (4-34); AST 21 U/L (14-36); African American GFR (CKD) >90 (>60 ml/min/1.73 sqM); Albumin 2.9 g/dL (3.5-5.0); Albumin/Globulin Ratio 1.3; Alkaline Phosphatase 54 U/L (38-126); Anion Gap 2 mmol/L; Blood Urea Nitrogen 13 mg/dL (7-17); Calcium 8.7 mg/dL (8.4-10.2); Carbon Dioxide 38 mmol/L (22-30); Chloride 95 mmol/L (98-107); Globulin 2.3 g/dL; Glucose 80 mg/dL (74-99); Non-African American GFR(CKD) >90 (>60 ml/min/1.73 sqM); Potassium 3.3 mmol/L (3.5-5.1); Sodium 135 mmol/L (137-145); Total Bilirubin 0.1 mg/dL (0.2-1.3); Total Protein 5.2 g/dL (6.3-8.2)
[2021-04-24] MEDS: IPRATROPIUM-ALBUTEROL 3 ML NEB INHALATION PRN ×4 (07:28→19:16)
[2021-04-24] MEDS: BUDESONIDE 1 MG/2 ML NEBU INHALATION SCH ×2 (07:28→19:16)
[2021-04-24] MEDS: INSULIN ASPART (NovoLOG) 100 UNIT/ML VIAL SQ SCH ×4 (07:31→21:02)
[2021-04-24] MEDS: predniSONE 10 MG TAB PO SCH (08:56)
[2021-04-24] MEDS: LIDOCAINE 5% PATCH TOPICAL SCH (08:57)
[2021-04-24] MEDS: THEOPHYLLINE 24 HOUR 400 MG CAP.ER.24H PO SCH (08:57)
[2021-04-24] MEDS: VERAPAMIL 80 MG TAB PO SCH ×3 (08:57→17:06)
[2021-04-24] MEDS: DULoxetine HCL 30 MG CAPSULE.DR PO SCH (08:57)
[2021-04-24] MEDS: FLUTICASONE 50MCG/SPRAY NASAL 16GM EA NOSTRIL SCH (08:59)
[2021-04-24] MEDS ORDERED: NALOXONE 0.4 MG/ML 1 ML VIAL IV PRN (11:03)
--- NOTE | 2021-04-24 11:06 | P.PN ---
Subjective Progress Note Date: 04/24/21 Pt complaining of severe back pain today, reports that she is unable to move or work with PT or nursing for mobility due to pain. Reports its "immeasurable" out of 10. Objective - Vital Signs Vital signs: Vital Signs Temp 97.7 F 04/24/21 06:57 Pulse 68 04/24/21 07:46 Resp 17 04/24/21 06:57 BP 120/66 04/24/21 06:57 Pulse Ox 99 04/24/21 06:57 Intake & Output 04/23/21 04/24/21 04/24/21 18:59 06:59 18:59 Weight 74.389 kg Other: Voiding Method External Catheter - Exam Gen: awake, alert HEENT: normocephalic, atraumatic, good hearing acuity, moist mucous membranes Resp: coarse breath sounds with diminished air exchange CVS: good distal perfusion x 4, GI: soft, NTTP, ND : no SPT, no CVAT, patterson catheter not present MSK: + pitting edema, no clubbing Neuro: non-focal, moving all extremities Psych: cooperative, anxious mood - Labs CBC & Chem 7: 04/24/21 05:36 04/24/21 05:36 Labs: Abnormal Lab Results - Last 24 Hours (Table) 04/23/21 04/23/21 04/23/21 Range/Units 21:11 21:11 21:11 WBC 16.4 H (3.8-10.6) k/uL RBC (3.80-5.40) m/uL Hgb 9.8 L (11.4-16.0) gm/dL Hct 31.3 L (34.0-46.0) % RDW 17.7 H (11.5-15.5) % Neutrophils # 13.8 H (1.3-7.7) k/uL Sodium 135 L (137-145) mmol/L Potassium (3.5-5.1) mmol/L Chloride 94 L (98-107) mmol/L Carbon Dioxide 39 H (22-30) mmol/L Total Bilirubin (0.2-1.3) mg/dL Total Protein 5.6 L (6.3-8.2) g/dL Albumin 3.2 L (3.5-5.0) g/dL Urine Appearance Cloudy H (Clear) Urine Nitrite Positive H (Negative) Ur Leukocyte Esterase Large H (Negative) Urine WBC 9 H (0-5) /hpf Amorphous Sediment Rare H (None) /hpf Urine Bacteria Occasional H (None) /hpf Urine Mucus Rare H (None) /hpf 04/24/21 04/24/21 Range/Units 05:36 05:36 WBC 12.9 H (3.8-10.6) k/uL RBC 3.34 L (3.80-5.40) m/uL Hgb 8.9 L (11.4-16.0) gm/dL Hct 27.6 L (34.0-46.0) % RDW 17.7 H (11.5-15.5) % Neutrophils # 9.9 H (1.3-7.7) k/uL Sodium 135 L (137-145) mmol/L Potassium 3.3 L (3.5-5.1) mmol/L Chloride 95 L (98-107) mmol/L Carbon Dioxide 38 H (22-30) mmol/L Total Bilirubin 0.1 L (0.2-1.3) mg/dL Total Protein 5.2 L (6.3-8.2) g/dL Albumin 2.9 L (3.5-5.0) g/dL Urine Appearance (Clear) Urine Nitrite (Negative) Ur Leukocyte Esterase (Negative) Urine WBC (0-5) /hpf Amorphous Sediment (None) /hpf Urine Bacteria (None) /hpf Urine Mucus (None) /hpf Assessment and Plan Assessment: Syncope Right Elbow Hematoma Intractable Back Pain superimposed on chronic back pain -admit to observation on telemetry -pain control with MARKETING SUMMER INTERN, lidocaine patch -bowel regimen -PT/OT -Lumbar, Pelvis XRs are negative for fracture -Elbow XR shows posterior swelling with possible olecranon bursitis -continue duloxetine, MONE, xanax Complicated UTI -f/u UCx -ceftriaxone daily RLS Hx of Seizures COPD with chronic hypoxemic respiratory failure, not in exacerbation GERD without esophagitis Hypertension Anemia of Chronic Disease -Home medications reviewed and reconciled -continue budesonide, ipratropium PRN, montelukast, prednisone, theophylline -continue keppra -continue PPI -continue ropinirole -continue verapamil, furosemide Patient is full code; requires extended GoC conversation regarding multiple co- morbidities DVT prophylaxis heparin subcu 3 times a day Anticipated length of stay more than 2 midnights Anticipated discharge to subacute rehab or home with PT
[2021-04-24 11:25] LABS: Glucose,Whole Blood 99 mg/dL (75-99)
[2021-04-24] MEDS: HYDROmorphone PCA 10 MG/50 ML BAG IV PRN (14:35)
[2021-04-24] MEDS: FUROSEMIDE 40 MG TAB PO SCH (14:49)
[2021-04-24] MEDS ORDERED: POTASSIUM CHLORIDE 20 MEQ in WATER FOR INJECTION 1 100ML.BAG IVPB STA (15:56)
[2021-04-24] MEDS ORDERED: POTASSIUM CHLORIDE ER 20 MEQ TAB.ER PO STA (15:56)
[2021-04-24 16:44] LABS: Glucose,Whole Blood 124 mg/dL (75-99)
[2021-04-24 20:51] LABS: Glucose,Whole Blood 171 mg/dL (75-99)
[2021-04-24] MEDS: DOCUSATE 100 MG CAP PO SCH (21:01)
[2021-04-24] MEDS: SENNOSIDES-DOCUSATE SODIUM 1 EACH TAB PO SCH (21:01)
[2021-04-25] MEDS: PANTOPRAZOLE 40 MG TABLET PO SCH (05:39)
[2021-04-25] MEDS: GABAPENTIN 100 MG CAP PO SCH ×4 (05:39→20:58)
[2021-04-25 06:46] LABS: Glucose,Whole Blood 87 mg/dL (75-99)
[2021-04-25] MEDS: INSULIN ASPART (NovoLOG) 100 UNIT/ML VIAL SQ SCH ×4 (07:27→20:59)
[2021-04-25] MEDS: BUDESONIDE 1 MG/2 ML NEBU INHALATION SCH ×2 (08:14→18:57)
[2021-04-25] MEDS: IPRATROPIUM-ALBUTEROL 3 ML NEB INHALATION PRN ×3 (08:14→18:57)
[2021-04-25] MEDS: LORATADINE 10 MG TAB PO SCH (09:08)
[2021-04-25] MEDS: DOCUSATE 100 MG CAP PO SCH ×2 (09:08→20:59)
[2021-04-25] MEDS: FLUTICASONE 50MCG/SPRAY NASAL 16GM EA NOSTRIL SCH (09:08)
[2021-04-25] MEDS: FUROSEMIDE 40 MG TAB PO SCH ×2 (09:08→15:21)
[2021-04-25] MEDS: THEOPHYLLINE 24 HOUR 400 MG CAP.ER.24H PO SCH (09:09)
[2021-04-25] MEDS: VERAPAMIL 80 MG TAB PO SCH ×3 (09:09→16:16)
[2021-04-25] MEDS: predniSONE 10 MG TAB PO SCH (09:10)
[2021-04-25] MEDS: DULoxetine HCL 30 MG CAPSULE.DR PO SCH (09:13)
[2021-04-25] MEDS: LIDOCAINE 5% PATCH TOPICAL SCH (10:16)
[2021-04-25 11:28] LABS: African American GFR (CKD) 108.5 (60.0-200.0); Anion Gap 7.4 mmol/L (4.00-12.00); BUN/Creat Ratio 16.67 Ratio (12.00-20.00); Calcium 8.4 mg/dL (8.7-10.3); Carbon Dioxide 34.6 mmol/L (21.6-31.8); Non-African American GFR(CKD) 93.7 (60.0-200.0); Potassium 3.4 mmol/L (3.5-5.5)
[2021-04-25 11:37] LABS: Glucose,Whole Blood 108 mg/dL (75-99)
--- NOTE | 2021-04-25 13:26 | P.PN ---
Subjective Progress Note Date: 04/25/21 Pt still c/o pain despite appearing comfortable during interview. Has hesitancy to work with PT and to move with nursing. Objective - Vital Signs Vital signs: Vital Signs Temp 98.3 F 04/25/21 07:21 Pulse 90 04/25/21 12:11 Resp 20 04/25/21 07:21 BP 113/56 04/25/21 12:11 Pulse Ox 93 L 04/25/21 11:37 Intake & Output 04/24/21 04/25/21 04/25/21 18:59 06:59 18:59 Output Total 200 Balance -200 Output: Urine 200 Other: Voiding Method External Catheter External Catheter External Catheter # Voids 1 - Exam Gen: awake, alert HEENT: normocephalic, atraumatic, good hearing acuity, moist mucous membranes Resp: coarse breath sounds with diminished air exchange CVS: good distal perfusion x 4, GI: soft, NTTP, ND : no SPT, no CVAT, patterson catheter not present MSK: + pitting edema, no clubbing Neuro: non-focal, moving all extremities Psych: cooperative, anxious mood - Labs CBC & Chem 7: 04/24/21 05:36 04/25/21 06:14 Labs: Abnormal Lab Results - Last 24 Hours (Table) 04/24/21 04/24/21 04/25/21 Range/Units 16:43 20:49 06:14 Potassium 3.4 L (3.5-5.5) mmol/L Carbon Dioxide 34.6 H (21.6-31.8) mmol/L POC Glucose (mg/dL) 124 H 171 H (75-99) mg/dL Calcium 8.4 L (8.7-10.3) mg/dL 04/25/21 Range/Units 11:34 Potassium (3.5-5.5) mmol/L Carbon Dioxide (21.6-31.8) mmol/L POC Glucose (mg/dL) 108 H (75-99) mg/dL Calcium (8.7-10.3) mg/dL Assessment and Plan Assessment: Syncope Right Elbow Hematoma Intractable Back Pain superimposed on chronic back pain -admit to observation on telemetry -pain control with STOCK AND STATION AGENT, lidocaine patch - allow for 24 more hours of STOCK AND STATION AGENT, but encourage movement with adequate pain control, then transition to orals. -bowel regimen -PT/OT -Lumbar, Pelvis XRs are negative for fracture -Elbow XR shows posterior swelling with possible olecranon bursitis -continue duloxetine, MONE, xanax Complicated UTI -f/u UCx -ceftriaxone daily RLS Hx of Seizures COPD with chronic hypoxemic respiratory failure, not in exacerbation GERD without esophagitis Hypertension Anemia of Chronic Disease -Home medications reviewed and reconciled -continue budesonide, ipratropium PRN, montelukast, prednisone, theophylline -continue keppra -continue PPI -continue ropinirole -continue verapamil, furosemide Patient is full code; requires extended GoC conversation regarding multiple co- morbidities DVT prophylaxis heparin subcu 3 times a day Anticipated length of stay more than 2 midnights Anticipated discharge to subacute rehab or home with PT
[2021-04-25] MEDS: ACETAMINOPHEN TAB 325 MG TAB PO PRN (16:16)
[2021-04-25] MEDS ORDERED: POTASSIUM CHLORIDE ER 20 MEQ TAB.ER PO STA (16:24)
[2021-04-25 16:55] LABS: Glucose,Whole Blood 124 mg/dL (75-99)
[2021-04-25 20:32] LABS: Glucose,Whole Blood 152 mg/dL (75-99)
[2021-04-25] MEDS: MONTELUKAST 10 MG TAB PO SCH (20:58)
[2021-04-25] MEDS: MELATONIN 3 MG TABLET PO SCH (20:58)
[2021-04-25] MEDS: SENNOSIDES-DOCUSATE SODIUM 1 EACH TAB PO SCH (20:59)
[2021-04-25] MEDS: HYDROmorphone PCA 10 MG/50 ML BAG IV PRN (22:17)
[2021-04-26] MEDS: GABAPENTIN 100 MG CAP PO SCH ×3 (05:51→20:29)
[2021-04-26] MEDS: PANTOPRAZOLE 40 MG TABLET PO SCH (05:51)
[2021-04-26 07:00] LABS: Glucose,Whole Blood 93 mg/dL (75-99)
[2021-04-26] MEDS: INSULIN ASPART (NovoLOG) 100 UNIT/ML VIAL SQ SCH ×4 (07:26→21:19)
[2021-04-26] MEDS ORDERED: bisacodyL 10 MG SUPP RECTAL STA (08:43)
[2021-04-26] MEDS: IPRATROPIUM-ALBUTEROL 3 ML NEB INHALATION PRN ×4 (09:10→20:03)
[2021-04-26] MEDS: BUDESONIDE 1 MG/2 ML NEBU INHALATION SCH ×2 (09:10→20:03)
[2021-04-26 09:22] LABS: Basophils # (A) 0.03 X 10*3/uL (0.00-0.10); Basophils % (A) 0.2 %; Eosinophils % (A) 3.1 %; HCT 31.3 % (37.2-46.3); Lymphocytes # (A) 1.99 X 10*3/uL (0.90-5.00); Lymphocytes % (A) 15.5 %; MCH 25.4 pg (27.0-32.0); MCHC 28.8 g/dL (32.0-37.0); MCV 88.4 fL (80.0-97.0); Mean Platelet Volume 10.7 fL (9.5-12.2); Monocytes # (A) 0.96 X 10*3/uL (0.20-1.00); Monocytes % (A) 7.5 %; Neutrophils # (A) 9.35 X 10*3/uL (1.80-7.70); Neutrophils % (A) 72.8 %; Platelet Count 321 X 10*3/uL (140-440); RBC 3.54 X 10*6/uL (4.10-5.20); RDW 18.1 % (11.5-14.5); WBC 12.85 X 10*3/uL (4.50-10.00)
[2021-04-26] MEDS: DOCUSATE 100 MG CAP PO SCH ×2 (10:00→20:28)
[2021-04-26] MEDS: LIDOCAINE 5% PATCH TOPICAL SCH (10:00)
[2021-04-26] MEDS: FLUTICASONE 50MCG/SPRAY NASAL 16GM EA NOSTRIL SCH (10:00)
[2021-04-26] MEDS: VERAPAMIL 80 MG TAB PO SCH ×3 (10:01→18:00)
[2021-04-26] MEDS: DULoxetine HCL 30 MG CAPSULE.DR PO SCH (10:01)
[2021-04-26] MEDS: LORATADINE 10 MG TAB PO SCH (10:01)
[2021-04-26] MEDS: FUROSEMIDE 40 MG TAB PO SCH ×2 (10:01→18:00)
[2021-04-26] MEDS: SENNOSIDES-DOCUSATE SODIUM 1 EACH TAB PO SCH ×3 (10:01→20:28)
[2021-04-26] MEDS: predniSONE 10 MG TAB PO SCH (10:01)
[2021-04-26] MEDS: THEOPHYLLINE 24 HOUR 400 MG CAP.ER.24H PO SCH (10:02)
[2021-04-26] MEDS: MORPHINE SULFATE ER 30 MG TABLET PO SCH ×2 (10:02→20:26)
[2021-04-26 11:23] LABS: Glucose,Whole Blood 106 mg/dL (75-99)
[2021-04-26] MEDS: HYDROcodone/APAP 7.5-325MG 1 EACH TAB PO PRN ×2 (12:28→18:00)
--- NOTE | 2021-04-26 12:43 | P.PN ---
Subjective Progress Note Date: 04/26/21 Pt still c/o pain, despite large doses of narcotics, however, appears comfortable on interview. Does not work well with PT, refusing to stand or move from bed. When I explain to her that we will convert the MARKET EDITOR to oral medications, she tries to negotiate with me, asking "to keep it on for one more day or at least a few more hours." We proceeded to have a discussion regarding chronic pain, and hyperesthesia and tolerance to narcotics. She claims that she is "not on any pain medications at home" and is angry with me when I point out that she is on twice daily MS contin. Overall, patient is demonstrating behavior consistent with narcotic dependence secondary to long-term opiate use for chronic back pain. Furthermore, she is refusing to or unable to work with physical therapy and nursing to improve mobility. If mobility continues to be an issue, then she will need PR lobsterman care or home care services with home medical equipment such as medical bed, commode, etc. Patient was counseled regarding this recommendation. In the meantime, we will begin to address her chronic pain with narcotic alternatives such as MONE and duloxetine, which she is already on, while gradually reducing the narcotic dosing. MARKET EDITOR was transitioned to MS Contin 30mg q12hr + norco 7.5- 325mg PRN, which is a fair and higher starting point than her home regimen. Bowel regimen increased, no BM in 48 hours. Objective - Vital Signs Vital signs: Vital Signs Temp 98.0 F 04/26/21 08:00 Pulse 92 04/26/21 12:17 Resp 18 04/26/21 12:17 BP 124/76 04/26/21 08:00 Pulse Ox 100 04/26/21 09:11 Intake & Output 04/25/21 04/26/21 04/26/21 18:59 06:59 18:59 Intake Total 900 Output Total 1600 Balance 900 -1600 Intake: Oral 900 Output: Urine 1600 Other: Voiding Method External Catheter External Catheter External Catheter # Voids 1 - Exam Gen: awake, alert HEENT: normocephalic, atraumatic, good hearing acuity, moist mucous membranes Resp: coarse breath sounds with diminished air exchange CVS: good distal perfusion x 4, GI: soft, NTTP, ND : no SPT, no CVAT, patterson catheter not present MSK: + pitting edema, no clubbing Neuro: non-focal, moving all extremities Psych: cooperative, anxious mood - Labs CBC & Chem 7: 04/26/21 06:26 04/25/21 06:14 Labs: Abnormal Lab Results - Last 24 Hours (Table) 04/25/21 04/25/21 04/26/21 Range/Units 16:50 20:31 06:26 WBC 12.85 H (4.50-10.00) X 10*3/uL RBC 3.54 L (4.10-5.20) X 10*6/uL Hgb 9.0 L (12.0-15.0) g/dL Hct 31.3 L (37.2-46.3) % MCH 25.4 L (27.0-32.0) pg MCHC 28.8 L (32.0-37.0) g/dL RDW 18.1 H (11.5-14.5) % Immature Gran # 0.12 H (0.00-0.04) X 10*3/uL Neutrophils # 9.35 H (1.80-7.70) X 10*3/uL Eosinophils # 0.40 H (0.04-0.35) X 10*3/uL POC Glucose (mg/dL) 124 H 152 H (75-99) mg/dL 04/26/21 Range/Units 11:20 WBC (4.50-10.00) X 10*3/uL RBC (4.10-5.20) X 10*6/uL Hgb (12.0-15.0) g/dL Hct (37.2-46.3) % MCH (27.0-32.0) pg MCHC (32.0-37.0) g/dL RDW (11.5-14.5) % Immature Gran # (0.00-0.04) X 10*3/uL Neutrophils # (1.80-7.70) X 10*3/uL Eosinophils # (0.04-0.35) X 10*3/uL POC Glucose (mg/dL) 106 H (75-99) mg/dL Assessment and Plan Assessment: Syncope Right Elbow Hematoma Intractable Back Pain superimposed on chronic back pain -admit to observation on telemetry -pain control with MARKET EDITOR, lidocaine patch - allow for 24 more hours of MARKET EDITOR, but encourage movement with adequate pain control, then transition to orals. -MARKET EDITOR transitioned to MS Contin 30mg q12h + norco 7.5-325mg q6h PRN -NO MORE IV NARCOTICS -home MONE is 100mg TID --> increase to 200mg TID -home duloxetine 30mg daily -continue lidocaine patch -tylenol PRN -xanax PRN for anxiety component of pain -bowel regimen: milagro-colace 2 tabs BID -PT/OT -Lumbar, Pelvis XRs are negative for fracture -Elbow XR shows posterior swelling with possible olecranon bursitis Complicated UTI -f/u UCx -ceftriaxone daily, day 3 RLS Hx of Seizures COPD with chronic hypoxemic respiratory failure, not in exacerbation GERD without esophagitis Hypertension Anemia of Chronic Disease -Home medications reviewed and reconciled -continue budesonide, ipratropium PRN, montelukast, prednisone, theophylline -continue keppra -continue PPI -continue ropinirole -continue verapamil, furosemide Patient is full code; requires extended GoC conversation regarding multiple co- morbidities DVT prophylaxis heparin subcu 3 times a day Anticipated length of stay more than 2 midnights Anticipated discharge to NH versus home with home care vs home with hospice
--- NOTE | 2021-04-26 14:10 | P.CONS ---
History of Present Illness - Chief Complaint Medical debility - History of Present Illness I had the opportunity to see patient for inpatient rehab consultation with regard to medical debility. Patient admitted to [facility] April 23. History of recent stay at [facility] where she is exhausted 2 days, discharged to sister's and failure to thrive. Note recent hospitalization Covid pneumonia. Admitted with acute on chronic respiratory failure, hypoxic and hypercapnic. Chest x-ray demonstrates right upper lobe infiltrate which appears to be new. Head CT with atrophy. C-spine CT mild DDD. Left elbow x-ray with olecranon bursitis. Lumbar x-ray T12 compression. Pelvic x-ray negative. OT reports moderate assistance for upper dressing and total assistance for lower dressing, maximal assistance for bathing. Two-person total assistance for toileting at 2 person maximal assistance functional mobility and transfers. PT prescribed. Previous functional history as elicited from patient: 66-year-old right-handed white female who is lives in one floor home alone. Retired. Describes independent own cooking, laundry, driving, standing shower and gait without device previously. PCP Dr. Betts. Denies tobacco has occasional drink. Family history at least mother with cancer. Review of Systems Review of systems: ENT: Denies sneezes or discharge. Eyes: Denies discharge or photophobia. Cardiac: Denies chest pain or palpitation. Pulmonary: Mild shortness of breath. Breast: Denies discharge or lumps. Gastrointestinal: Denies nausea, emesis, constipation, diarrhea. Genitourinary: Denies discharge or frequency. Musculoskeletal: Low back pain which is made worse by attempts to elevate either leg off of bed. Neurologic: See above. Generally weak. Endocrine: Denies shakes or sweats. Oncology: Denies cancers. Dermatologic: Denies rash, itching, pruritus. ALLERGY/immunology: Denies sneezes, rashes. Past Medical History Past Medical History: Cancer, COPD, Deep Vein Thrombosis (DVT), Hypertension, Pneumonia, Rheumatoid Arthritis (RA) Additional Past Medical History / Comment(s): hearing difficulty currently, colitis, osteopenia, hx cancer of appendix, uses oxygen 2L continuous. chronic back pain, restless leg, recent admission for exacerbation of COPD. 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 Colonoscopy 2017. pain procedure at [facility] with Dr Ty. TAD with unilateral oophorectomy 1983. Partial vulvectomy in 2000. Past Anesthesia/Blood Transfusion Reactions: No Reported Reaction Additional Past Anesthesia/Blood Transfusion Reaction / Comm: states is not supposed to have general anesthesia R/T awaiting lung transplant Past Psychological History: ADD/ADHD, Anxiety Smoking Status: Former smoker Past Alcohol Use History: None Reported Past Drug Use History: None Reported - Past Family History Father Family Medical History: Cancer, COPD Additional Family Medical History / Comment(s): COLON cancer Mother Family Medical History: Cancer Additional Family Medical History / Comment(s): ESOPHAGUS cancer Sister(s) Family Medical History: Cancer Additional Family Medical History / Comment(s): CERVICAL cancer Medications and Allergies Home Medications Medication Instructions Recorded Confirmed Type rOPINIRole HCL [Requip] 0.5 mg PO HS 03/24/20 04/24/21 History Cholecalciferol [Vitamin D3 (25 1,000 units PO DAILY 04/08/20 04/24/21 History Mcg = 1000 Iu)] Magnesium Oxide [Mag-Ox] 400 mg PO DAILY 09/15/20 04/24/21 History Melatonin 3 mg PO HS 10/11/20 04/24/21 History Acetaminophen Tab [Tylenol] 650 mg PO Q4H PRN 12/30/20 04/24/21 History Fluticasone Nasal [place] [Flonase 1 spr EA NOSTRIL DAILY 12/30/20 04/24/21 History Nasal [place]] Multivitamins, Thera [Multivitamin 1 tab PO DAILY 12/30/20 04/24/21 History (formulary)] Pantoprazole Sodium [Protonix] 40 mg PO DAILY 12/30/20 04/24/21 History Theophylline 24 Hour [Sekou-24] 400 mg PO DAILY 12/30/20 04/24/21 History Ipratropium-Albuterol Nebulize 3 ml INHALATION RT-QID PRN ml 01/05/21 04/24/21 Rx [Duoneb 0.5 mg-3 mg/3 ml Soln] Budesonide [Pulmicort] 1 mg INHALATION RT-BID 01/15/21 04/24/21 History DULoxetine HCL [Cymbalta] 30 mg PO DAILY 01/15/21 04/24/21 History Verapamil [Isoptin] 80 mg PO TID@0800,1200,1700 01/15/21 04/24/21 History Furosemide [Lasix] 40 mg PO BID 02/19/21 04/24/21 History Montelukast [Singulair] 10 mg PO HS 02/19/21 04/24/21 History levETIRAcetam [Keppra] 750 mg PO BID 02/19/21 04/24/21 History predniSONE 10 mg PO DAILY 02/19/21 04/24/21 History Albuterol Inhaler [Ventolin Hfa 2 puff INHALATION RT-QID puff 02/25/21 04/24/21 Rx Inhaler] Gabapentin [Neurontin] 100 mg PO TID@0600,1400,2200 #9 cap 02/25/21 04/24/21 Rx Lidocaine 5% Patch [Lidoderm 5% 1 patch TOPICAL DAILY@0800 #3 patch 02/25/21 04/24/21 Rx Patch] Psyllium Husk 100% [Metamucil 6 gm PO BID #1 packet 02/25/21 04/24/21 Rx Packet] Docusate [Colace] 100 mg PO BID 04/24/21 04/24/21 History Loratadine [Claritin] 10 mg PO DAILY 04/24/21 04/24/21 History Morphine Sulfate ER [Ms Contin] 15 mg PO Q12HR 04/24/21 04/24/21 History Potassium Chloride ER [K-Dur 20] 40 meq PO DAILY@1700 04/24/21 04/24/21 History Allergies Allergy/AdvReac Type Severity Reaction Status Date / Time infliximab [From Remicade] Allergy Dyspnea/HIV Verified 04/24/21 08:38 ES propoxyphene [From Darvon] Allergy Rash/Hives Verified 04/24/21 08:38 adhesive tape AdvReac "is hard Verified 04/24/21 08:38 on skin" Physical Exam Vitals: Vital Signs Temp Pulse Pulse Resp BP Pulse Ox 04/26/21 12:29 90 18 04/26/21 12:17 92 18 04/26/21 09:21 90 18 06/29/21 09:11 94 100 04/26/21 08:00 98.0 F 86 18 124/76 93 L 04/26/21 07:50 86 18 04/26/21 02:00 98.1 F 77 16 152/68 96 04/25/21 19:44 98.4 F 64 16 150/66 97 04/25/21 19:16 88 04/25/21 18:58 90 Intake and Output 04/25/21 04/26/21 04/26/21 22:59 06:59 14:59 Intake Total 900 Output Total 1000 600 Balance -100 -600 Intake: Oral 900 Output: Urine 1000 600 Other: Voiding Method External Catheter External Catheter # Voids 1 Skin: Atrophic, intact. General: Overweight build and comfortable appearance. Head: Normocephalic, atraumatic. Eyes: Symmetric. Pupils equal round. Ears: Symmetric. Hearing within normal limits. Mouth: Clear. Neck: Supple. Carotid without bruit. Cardiac: Regular rate and rhythm. Lungs: Clear anteriorly and posteriorly. Abdomen: Soft active nontender. Extremities: Normal tone. Neurological: Mental status: Alert, cooperative, pleasant. Cranial nerves: Symmetric facial tone and trapezius. Motor: Able to elevate arms off the bed. Unable to elevate legs off of bed due to back pain and discomfort. Demonstrates active movement at ankles. Sensation: Intact throughout. DTRs: Symmetric and equal throughout. Mobility: Requires physical assist for bed mobility. Results CBC & Chem 7: 04/26/21 06:26 04/25/21 06:14 Labs: Abnormal Lab Results - Last 24 Hours (Table) 04/25/21 04/25/21 04/26/21 Range/Units 16:50 20:31 06:26 WBC 12.85 H (4.50-10.00) X 10*3/uL RBC 3.54 L (4.10-5.20) X 10*6/uL Hgb 9.0 L (12.0-15.0) g/dL Hct 31.3 L (37.2-46.3) % MCH 25.4 L (27.0-32.0) pg MCHC 28.8 L (32.0-37.0) g/dL RDW 18.1 H (11.5-14.5) % Immature Gran # 0.12 H (0.00-0.04) X 10*3/uL Neutrophils # 9.35 H (1.80-7.70) X 10*3/uL Eosinophils # 0.40 H (0.04-0.35) X 10*3/uL POC Glucose (mg/dL) 124 H 152 H (75-99) mg/dL 04/26/21 Range/Units 11:20 WBC (4.50-10.00) X 10*3/uL RBC (4.10-5.20) X 10*6/uL Hgb (12.0-15.0) g/dL Hct (37.2-46.3) % MCH (27.0-32.0) pg MCHC (32.0-37.0) g/dL RDW (11.5-14.5) % Immature Gran # (0.00-0.04) X 10*3/uL Neutrophils # (1.80-7.70) X 10*3/uL Eosinophils # (0.04-0.35) X 10*3/uL POC Glucose (mg/dL) 106 H (75-99) mg/dL Assessment and Plan Plan: Impression: 1. Medical debility. 2. Syncope with history of falls. 3. Recent covered pneumonia. 4. T12 compression. Mild DDD C-spine. 5. COPD exacerbation. 6. Rheumatoid arthritis. 7. Hypertension. Comments and plan: At this time OT is ongoing. Await PT notes. Patient currently two-person assist and has used up all group home days. Rehab prognosis currently guarded is unsure of any discharge plan.
[2021-04-26 14:16] LABS: African American GFR (CKD) 108.5 (60.0-200.0); Anion Gap 6.4 mmol/L (4.00-12.00); Calcium 8.9 mg/dL (8.7-10.3); Carbon Dioxide 37.6 mmol/L (21.6-31.8); Non-African American GFR(CKD) 93.7 (60.0-200.0); Potassium 3.3 mmol/L (3.5-5.5)
[2021-04-26 16:58] LABS: Glucose,Whole Blood 140 mg/dL (75-99)
[2021-04-26] MEDS: MONTELUKAST 10 MG TAB PO SCH (20:26)
[2021-04-26] MEDS: MELATONIN 3 MG TABLET PO SCH (20:29)
[2021-04-26 20:51] LABS: Glucose,Whole Blood 173 mg/dL (75-99)
[2021-04-27] MEDS: PANTOPRAZOLE 40 MG TABLET PO SCH (04:58)
[2021-04-27] MEDS: HYDROcodone/APAP 7.5-325MG 1 EACH TAB PO PRN ×3 (04:58→19:38)
[2021-04-27] MEDS: GABAPENTIN 100 MG CAP PO SCH ×3 (04:59→21:06)
[2021-04-27 07:06] LABS: Glucose,Whole Blood 99 mg/dL (75-99)
[2021-04-27] MEDS: INSULIN ASPART (NovoLOG) 100 UNIT/ML VIAL SQ SCH ×4 (07:12→21:07)
[2021-04-27] MEDS: MORPHINE SULFATE ER 30 MG TABLET PO SCH ×2 (08:59→21:05)
[2021-04-27] MEDS: DOCUSATE 100 MG CAP PO SCH ×2 (08:59→21:05)
[2021-04-27] MEDS: THEOPHYLLINE 24 HOUR 400 MG CAP.ER.24H PO SCH (08:59)
[2021-04-27] MEDS: SENNOSIDES-DOCUSATE SODIUM 1 EACH TAB PO SCH ×2 (08:59→21:04)
[2021-04-27] MEDS: VERAPAMIL 80 MG TAB PO SCH ×3 (08:59→16:53)
[2021-04-27] MEDS: DULoxetine HCL 30 MG CAPSULE.DR PO SCH (09:00)
[2021-04-27] MEDS: predniSONE 10 MG TAB PO SCH (09:00)
[2021-04-27] MEDS: FUROSEMIDE 40 MG TAB PO SCH ×2 (09:00→16:53)
[2021-04-27] MEDS: LORATADINE 10 MG TAB PO SCH (09:00)
[2021-04-27] MEDS: LIDOCAINE 5% PATCH TOPICAL SCH (09:02)
[2021-04-27] MEDS: FLUTICASONE 50MCG/SPRAY NASAL 16GM EA NOSTRIL SCH (09:03)
[2021-04-27] MEDS: BUDESONIDE 1 MG/2 ML NEBU INHALATION SCH ×2 (09:24→20:00)
[2021-04-27] MEDS: IPRATROPIUM-ALBUTEROL 3 ML NEB INHALATION PRN ×3 (09:24→20:00)
[2021-04-27 11:31] LABS: Glucose,Whole Blood 103 mg/dL (75-99)
[2021-04-27 16:26] LABS: Glucose,Whole Blood 134 mg/dL (75-99)
--- NOTE | 2021-04-27 18:08 | P.PN ---
<Kapil Gonzalez - Last Filed: 04/27/21 17:57> Subjective Progress Note Date: 04/27/21 Hospital course: Patient is a 66-year-old female with a past medical history of rheumatoid arth ritis, COPD home oxygen dependent on 2 L, obstructive sleep apnea BiPAP dependent nightly, seizure disorder, hypertension, and recent Covid 19 infection. She presented to the hospital on 04/23/21 with a chief complaint of failure to thrive and intractable back pain. Patient recently discharged from rehab and after being home less than 2 days patient had progressive weakness and sent back to the hospital. During hospitalization patient was found to have a UTI and started on IV antibiotic Rocephin. PT/OT evaluating patient. Physical exam: Patient seen and fully evaluated at the bedside this morning. She reports still feeling mildly weak but did say she was able to get up and walk with physical therapy with assistance. We are awaiting insurance approval for inpatient rehabilitation placement. Patient denies having any headache, lightheadedness, chest pain, palpitations, or shortness of breath at this time. Patient reports back pain is better controlled at this time. General: non toxic, no distress, appears at stated age Derm: warm, dry Head: atraumatic, normocephalic, symmetric Eyes: EOMI, no lid lag, anicteric sclera Mouth: no lip lesion, mucus membranes moist Cardiovascular: S1S2 reg, no murmur, positive posterior tibial pulse bilateral, Lungs: CTA bilateral, no rhonchi, no rales , no accessory muscle use Abdominal: soft, nontender to palpation, no guarding, no appreciable organomegaly Ext: no gross muscle atrophy, no edema, no contractures Neuro: CN II-XI grossly intact, no focal neuro deficits Psych: Alert, oriented, appropriate affect Plan of care: Weakness/fatigue/presyncopal episode -PT/OT to evaluate -Plan for discharge to inpatient rehab, [facility] rehab. -Symptomatic and safe treatment and assistance as needed. -Fall precautions Intractable back pain superimposed on chronic back pain -Avoid IV pain medications. -Patient transitioned to MS Contin 30 mg every 12 hours and [place] 7.5/325 every 6 hours as needed for breakthrough pain. -Encourage repositioning, heating pad, and other ALTERNATIVE forms of symptomatic treatment. Rheumatoid arthritis -Symptomatic care and pain management, provide assistance as needed. COPD -Continue home oxygen, maintain SpO2 greater than 90%. -Encourage incentive spirometry. Hypertension -Monitor vital signs and continue daily medication management. Obstructive sleep apnea -BiPAP nightly. Anemia of chronic disease -Hemoglobin at baseline. CODE STATUS: Full code DVT prophylaxis: SCDs Discussed with: Patient and RN Anticipated discharge date: Tomorrow morning [facility] A total of 45 minutes was spent on the care of this complex patient more than 50% of the time was spent in counseling and care coordination. Objective - Vital Signs Vital signs: Vital Signs Temp 98.6 F 04/27/21 14:00 Pulse 94 04/27/21 14:00 Resp 18 04/27/21 14:00 BP 152/73 04/27/21 14:00 Pulse Ox 94 L 04/27/21 14:00 Intake & Output 04/26/21 04/27/21 04/27/21 18:59 06:59 18:59 Intake Total 450 420 Output Total 400 900 Balance 50 -900 420 Intake: Oral 450 420 Output: Urine 400 900 Other: Voiding Method External Catheter External Catheter External Catheter # Voids 3 3 - Labs CBC & Chem 7: 04/26/21 06:26 04/26/21 06:26 Labs: Abnormal Lab Results - Last 24 Hours (Table) 04/26/21 04/27/21 04/27/21 Range/Units 20:50 11:30 16:25 POC Glucose (mg/dL) 173 H 103 H 134 H (75-99) mg/dL <Linda Elise - Last Filed: 04/27/21 19:42> Objective - Vital Signs Vital signs: Vital Signs Temp 98.6 F 04/27/21 14:00 Pulse 94 04/27/21 14:00 Resp 18 04/27/21 14:00 BP 152/73 04/27/21 14:00 Pulse Ox 94 L 04/27/21 14:00 Intake & Output 04/27/21 04/27/21 04/28/21 06:59 18:59 06:59 Intake Total 420 Output Total 900 Balance -900 420 Intake: Oral 420 Output: Urine 900 Other: Voiding Method External Catheter External Catheter # Voids 2 - Labs CBC & Chem 7: 04/26/21 06:26 04/26/21 06:26 Labs: Abnormal Lab Results - Last 24 Hours (Table) 04/26/21 04/27/21 04/27/21 Range/Units 20:50 11:30 16:25 POC Glucose (mg/dL) 173 H 103 H 134 H (75-99) mg/dL Assessment and Plan Assessment: Kapil Gonzalez SIX PACK PACKER rendered care for this patient independently, reviewed the findings and plan as documented in the note above. I did not physically speak with or examine the patient on this date.
[2021-04-27 20:41] LABS: Glucose,Whole Blood 162 mg/dL (75-99)
[2021-04-27] MEDS: MELATONIN 3 MG TABLET PO SCH (21:05)
[2021-04-27] MEDS: MONTELUKAST 10 MG TAB PO SCH (21:05)
[2021-04-28] MEDS: HYDROcodone/APAP 7.5-325MG 1 EACH TAB PO PRN ×2 (03:17→16:06)
[2021-04-28] MEDS: PANTOPRAZOLE 40 MG TABLET PO SCH (05:46)
[2021-04-28] MEDS: GABAPENTIN 100 MG CAP PO SCH ×2 (05:46→12:48)
[2021-04-28 07:08] LABS: Glucose,Whole Blood 90 mg/dL (75-99)
[2021-04-28] MEDS: BUDESONIDE 1 MG/2 ML NEBU INHALATION SCH (07:19)
[2021-04-28] MEDS: IPRATROPIUM-ALBUTEROL 3 ML NEB INHALATION PRN ×2 (07:19→11:30)
[2021-04-28] MEDS: LORATADINE 10 MG TAB PO SCH (08:04)
[2021-04-28] MEDS: VERAPAMIL 80 MG TAB PO SCH ×2 (08:04→12:48)
[2021-04-28] MEDS: MORPHINE SULFATE ER 30 MG TABLET PO SCH (08:04)
[2021-04-28] MEDS: THEOPHYLLINE 24 HOUR 400 MG CAP.ER.24H PO SCH (08:04)
[2021-04-28] MEDS: FLUTICASONE 50MCG/SPRAY NASAL 16GM EA NOSTRIL SCH (08:05)
[2021-04-28] MEDS: FUROSEMIDE 40 MG TAB PO SCH ×2 (08:05→16:10)
[2021-04-28] MEDS: predniSONE 10 MG TAB PO SCH (08:05)
[2021-04-28] MEDS: DOCUSATE 100 MG CAP PO SCH (08:05)
[2021-04-28] MEDS: DULoxetine HCL 30 MG CAPSULE.DR PO SCH (08:05)
[2021-04-28] MEDS: SENNOSIDES-DOCUSATE SODIUM 1 EACH TAB PO SCH (08:05)
[2021-04-28] MEDS: INSULIN ASPART (NovoLOG) 100 UNIT/ML VIAL SQ SCH ×2 (08:07→12:44)
[2021-04-28] MEDS: LIDOCAINE 5% PATCH TOPICAL SCH (08:21)
[2021-04-28 08:48] VITALS: RESP 18
--- NOTE | 2021-04-28 11:27 | P.DS ---
<Kapil Gonzalez - Last Filed: 04/28/21 12:34> Providers Expected date of discharge: 04/28/21 Hospital Course: Discharge Diagnosis: Weakness/fatigue/frequent falls Intractable back pain superimposed on chronic back pain Rheumatoid arthritis COPD Hypertension Obstructive sleep apnea Anemia of chronic disease Hospital Course: Patient is a 66-year-old female with a past medical history of rheumatoid arthr itis, COPD home oxygen dependent on 2 L, obstructive sleep apnea BiPAP dependent nightly, seizure disorder, hypertension, and recent Covid 19 infection. She presented to the hospital on 04/23/21 with a chief complaint of failure to thrive and intractable back pain. Patient recently discharged from rehab and after being home less than 2 days patient had progressive weakness and sent back to the hospital. During hospitalization patient was found to have a UTI and completed three-day course of antibiotics with Rocephin. Medication changes were made to assist with intractable chronic lower back pain. MS Contin was increased to 30 mg every 12 hours and appears to be successful in patient's reports of improved/better controlled pain. PT/OT consulted and worked with patient. Patient being transferred to [facility] for rehabilitation and working on strength, balance, therapeutic exercise, and increased endurance. Patient stable for transfer to inpatient ar re facility at this time. Physical exam: Patient seen and fully evaluated at the bedside this morning. She reports feeling a little stronger this morning and denies having any headache, lightheadedness, chest pain, palpitations, or shortness of breath at this time. Patient reports back pain remains better controlled at this time. General: non toxic, no distress, appears at stated age Derm: warm, dry Head: atraumatic, normocephalic, symmetric Eyes: EOMI, no lid lag, anicteric sclera Mouth: no lip lesion, mucus membranes moist Cardiovascular: S1S2 reg, no murmur, positive posterior tibial pulse bilateral, Lungs: CTA bilateral, no rhonchi, no rales , no accessory muscle use Abdominal: soft, nontender to palpation, no guarding, no appreciable org anomegaly Ext: no gross muscle atrophy, no edema, no contractures Neuro: CN II-XI grossly intact, no focal neuro deficits Psych: Alert, oriented, appropriate affect A total of 45 minutes of time were spent preparing this complex discharge summary. Assessment: I reviewed the documentation as provided by the TAD above, who is the original author of this note. I agree with the documented assessment and plan, with the following changes: none Patient Condition at Discharge: Stable Plan - Discharge Summary Discharge Rx Participant: Yes New Discharge Prescriptions: New Morphine Sulfate ER [Ms Contin] 30 mg PO Q12HR tablet HYDROcodone/APAP 7.5-325MG [[place] 7.5-325] 1 each PO Q6H PRN tab PRN Reason: Pain Continue rOPINIRole HCL [Requip] 0.5 mg PO HS Cholecalciferol [Vitamin D3 (25 Mcg = 1000 Iu)] 1,000 units PO DAILY Magnesium Oxide [Mag-Ox] 400 mg PO DAILY Melatonin 3 mg PO HS Acetaminophen Tab [Tylenol] 650 mg PO Q4H PRN PRN Reason: Pain Or Fever > 100.5 Fluticasone Nasal [place] [Flonase Nasal [place]] 1 spr EA NOSTRIL DAILY Theophylline 24 Hour [[place]ekou-24] 400 mg PO DAILY Pantoprazole Sodium [Protonix] 40 mg PO DAILY Multivitamins, Thera [Multivitamin (formulary)] 1 tab PO DAILY Ipratropium-Albuterol Nebulize [Duoneb 0.5 mg-3 mg/3 ml Soln] 3 ml INHALATION RT-QID PRN ml PRN Reason: Shortness Of Breath Or Wheezing DULoxetine HCL [Cymbalta] 30 mg PO DAILY Furosemide [Lasix] 40 mg PO BID Montelukast [Singulair] 10 mg PO HS Loratadine [Claritin] 10 mg PO DAILY Docusate [Colace] 100 mg PO BID Verapamil [Isoptin] 80 mg PO TID@0800,1200,1700 Budesonide [Pulmicort] 1 mg INHALATION RT-BID predniSONE 10 mg PO DAILY levETIRAcetam [Keppra] 750 mg PO BID Psyllium Husk 100% [Metamucil Packet] 6 gm PO BID #1 packet Albuterol Inhaler [Ventolin Hfa Inhaler] 2 puff INHALATION RT-QID puff Lidocaine 5% Patch [Lidoderm 5% Patch] 1 patch TOPICAL DAILY@0800 #3 patch Gabapentin [Neurontin] 100 mg PO TID@0600,1400,2200 #9 cap Potassium Chloride ER [K-Dur 20] 40 meq PO DAILY@1700 Discontinued Morphine Sulfate ER [Ms Contin] 15 mg PO Q12HR Discharge Medication List rOPINIRole HCL [Requip] 0.5 mg PO HS 03/24/20 [History] Cholecalciferol [Vitamin D3 (25 Mcg = 1000 Iu)] 1,000 units PO DAILY 04/08/20 [History] Magnesium Oxide [Mag-Ox] 400 mg PO DAILY 09/15/20 [History] Melatonin 3 mg PO HS 10/11/20 [History] Acetaminophen Tab [Tylenol] 650 mg PO Q4H PRN 12/30/20 [History] Fluticasone Nasal [place] [Flonase Nasal [place]] 1 spr EA NOSTRIL DAILY 12/30/20 [History] Multivitamins, Thera [Multivitamin (formulary)] 1 tab PO DAILY 12/30/20 [History] Pantoprazole Sodium [Protonix] 40 mg PO DAILY 12/30/20 [History] Theophylline 24 Hour [[place]-24] 400 mg PO DAILY 12/30/20 [History] Ipratropium-Albuterol Nebulize [Duoneb 0.5 mg-3 mg/3 ml Soln] 3 ml INHALATION RT-QID PRN ml 01/05/21 [Rx] Budesonide [Pulmicort] 1 mg INHALATION RT-BID 01/15/21 [History] DULoxetine HCL [Cymbalta] 30 mg PO DAILY 01/15/21 [History] Verapamil [Isoptin] 80 mg PO TID@0800,1200,1700 01/15/21 [History] Furosemide [Lasix] 40 mg PO BID 02/19/21 [History] Montelukast [Singulair] 10 mg PO HS 02/19/21 [History] levETIRAcetam [Keppra] 750 mg PO BID 02/19/21 [History] predniSONE 10 mg PO DAILY 02/19/21 [History] Albuterol Inhaler [Ventolin Hfa Inhaler] 2 puff INHALATION RT-QID puff 02/25/21 [Rx] Gabapentin [Neurontin] 100 mg PO TID@0600,1400,2200 #9 cap 02/25/21 [Rx] Lidocaine 5% Patch [Lidoderm 5% Patch] 1 patch TOPICAL DAILY@0800 #3 patch 02/25/21 [Rx] Psyllium Husk 100% [Metamucil Packet] 6 gm PO BID #1 packet 02/25/21 [Rx] Docusate [Colace] 100 mg PO BID 04/24/21 [History] Loratadine [Claritin] 10 mg PO DAILY 04/24/21 [History] Potassium Chloride ER [K-Dur 20] 40 meq PO DAILY@1700 04/24/21 [History] HYDROcodone/APAP 7.5-325MG [[place] 7.5-325] 1 each PO Q6H PRN tab 04/28/21 [Rx] Morphine Sulfate ER [Ms Contin] 30 mg PO Q12HR tablet 04/28/21 [Rx] Follow up Appointment(s)/Referral(s): [facility], [NON-STAFF] - As Needed Gavin Riggs [Primary Care Provider] - 1-2 days Activity/Diet/Wound Care/Special Instructions: Activity: As tolerated, patient being transferred to inpatient [facility] rehab for continued physical rehabilitation. Diet: Heart healthy Special Instructions: You are being transferred to [facility] inpatient rehabilitation Center. Thank you for allowing us to participate in your care, it was a pleasure having U for our patient. Discharge Disposition: TRANSFER TO SNF/ECF <Frank Melvin - Last Filed: 04/28/21 14:17> Providers Date of admission: 04/25/21 11:08 Attending physician: Mayank Schaffer MD Consults: 04/26/21 11:39 Consult Physician Routine Consulting Provider: Asher Cunha Consult Reason/Comments: IPR Do you want consulting provider notified?: Yes Primary care physician: Gavin Riggs
[2021-04-28 11:51] LABS: Glucose,Whole Blood 109 mg/dL (75-99)
[2021-04-28 14:31] VITALS: BP 125/64; PULSE 98; TEMP 98.7
== END 2021-04-28 16:17 | DRG 690 ==
LOC: EC 20:28 → 4SSUR 22:49 → OBSVTOIN 04-25 11:08
PROVIDERS: ADMIT Internal Medicine; ATTEND Internal Medicine
DX: N39.0 Urinary tract infection, site not specified (principal); J96.11 Chronic respiratory failure with hypoxia; F11.20 Opioid dependence, uncomplicated; R55 Syncope and collapse; S50.01XA Contusion of right elbow, initial encounter; G25.81 Restless legs syndrome; I10 Essential (primary) hypertension; K21.9 Gastro-esophageal reflux disease without esophagitis; D63.8 Anemia in other chronic diseases classified elsewhere; G89.29 Other chronic pain; R53.1 Weakness; M54.9 Dorsalgia, unspecified; M50.30 Other cervical disc degeneration, unspecified cervical region; J44.9 Chronic obstructive pulmonary disease, unspecified; M06.9 Rheumatoid arthritis, unspecified; G31.89 Other specified degenerative diseases of nervous system; Z20.822 Contact with and (suspected) exposure to COVID-19; Z86.16 Personal history of COVID-19; Z91.81 History of falling; F41.9 Anxiety disorder, unspecified; G47.33 Obstructive sleep apnea (adult) (pediatric); F90.9 Attention-deficit hyperactivity disorder, unspecified type; G40.909 Epilepsy, unspecified, not intractable, without status epilepticus; M85.88 Other specified disorders of bone density and structure, other site; M70.20 Olecranon bursitis, unspecified elbow; R29.6 Repeated falls; Z79.899 Other long term (current) drug therapy; Z85.038 Personal history of other malignant neoplasm of large intestine; Z85.44 Personal history of malignant neoplasm of other female genital organs; Z87.01 Personal history of pneumonia (recurrent); Z87.891 Personal history of nicotine dependence; Z90.710 Acquired absence of both cervix and uterus; Z90.721 Acquired absence of ovaries, unilateral; Z96.651 Presence of right artificial knee joint; Z99.81 Dependence on supplemental oxygen; Z88.8 Allergy status to other drugs, medicaments and biological substances; Z91.048 Other nonmedicinal substance allergy status; Z86.718 Personal history of other venous thrombosis and embolism
CPT/HCPCS: 36415; 70450; 71045; 72110; 72125; 72170; 80048; 80053; 81001; 83605; 83735; 84484; 85025; 85610; 85730; 87635; 93005; 94640; 94660; 94760; 99285

== ENCOUNTER 2021-05-22 14:42 | Inpatient (IN) | payer MEDICARE, OTHER, BC ==
--- NOTE | 2021-05-22 15:17 | ED ---
General Adult HPI - General Chief complaint: Weakness Stated complaint: syncope Source: patient, RN notes reviewed, old records reviewed Mode of arrival: wheelchair Limitations: no limitations - History of Present Illness Initial comments: 66-year-old white female, ill-appearing, alert and oriented 4, presents to the emergency room with complaints of multiple episodes of syncope with dizziness and weakness over the past 6 months to a year. Patient states that she's been to the Hospital multiple times and has seen her primary care doctor for the same but no results. Patient states that she had another episode today and his sister made her come to the emergency room. She states that the episodes only last about 2 seconds. she denies any injuries. denies any pain. She states that she does feel some generalized weakness. Patient denies any nausea vomiting diarrhea or fevers. She denies any chest pain or shortness of breath. She has COPD patient and she is on 3 L of oxygen at home. She denies any sputum changes or cough. -: month(s) (6) Severity scale (1-10): 0 Improves with: none Worsens with: none Associated Symptoms: weakness, other (dizziness) Treatments Prior to Arrival: none - Related Data Home Medications Medication Instructions Recorded Confirmed rOPINIRole HCL [Requip] 0.5 mg PO HS 03/24/20 05/22/21 Cholecalciferol [Vitamin D3 (25 25 mcg PO DAILY 04/08/20 05/22/21 Mcg = 1000 Iu)] Magnesium Oxide [Mag-Ox] 400 mg PO DAILY 09/15/20 05/22/21 Melatonin 3 mg PO HS PRN 10/11/20 05/22/21 Acetaminophen Tab [Tylenol] 650 mg PO Q4H PRN 12/30/20 05/22/21 Fluticasone Nasal [place] [Flonase 1 spr EA NOSTRIL DAILY 12/30/20 05/22/21 Nasal [place]] Multivitamins, Thera [Multivitamin 1 tab PO DAILY 12/30/20 05/22/21 (formulary)] Pantoprazole Sodium [Protonix] 40 mg PO DAILY 12/30/20 05/22/21 Theophylline 24 Hour [Sekou-24] 400 mg PO HS 12/30/20 05/22/21 Budesonide [Pulmicort] 1 mg INHALATION RT-BID 01/15/21 05/22/21 DULoxetine HCL [Cymbalta] 30 mg PO DAILY 01/15/21 05/22/21 Verapamil [Isoptin] 80 mg PO AC-TID 01/15/21 05/22/21 Furosemide [Lasix] 40 mg PO BID 02/19/21 05/22/21 Montelukast [Singulair] 10 mg PO HS 02/19/21 05/22/21 levETIRAcetam [Keppra] 750 mg PO BID 02/19/21 05/22/21 Loratadine [Claritin] 10 mg PO DAILY 04/24/21 05/22/21 Potassium Chloride ER [K-Dur 20] 40 meq PO DAILY 04/24/21 05/22/21 HYDROcodone/APAP 10-325MG [[place] 1 tab PO Q6H PRN 05/22/21 05/22/21 10-325] Ipratropium-Albuterol Nebulize 3 ml INHALATION RT-QID PRN 05/22/21 05/22/21 [Duoneb 0.5 mg-3 mg/3 ml Soln] Lidocaine 5% Patch [Lidoderm 5% 1 patch TOPICAL DAILY PRN 05/22/21 05/22/21 Patch] polyethylene glycoL 3350 [Miralax] 17 gm PO DAILY PRN 05/22/21 05/22/21 predniSONE 10 mg PO DAILY 05/22/21 05/22/21 Previous Rx's Medication Instructions Recorded Albuterol Inhaler [Ventolin Hfa 2 puff INHALATION RT-QID puff 02/25/21 Inhaler] Psyllium Husk 100% [Metamucil 6 gm PO BID #1 packet 02/25/21 Packet] Allergies Allergy/AdvReac Type Severity Reaction Status Date / Time infliximab [From Remicade] Allergy Dyspnea/HIV Verified 05/22/21 17:07 ES propoxyphene [From Darvon] Allergy Rash/Hives Verified 05/22/21 17:07 adhesive tape AdvReac "is hard Verified 05/22/21 17:07 on skin" Review of Systems ROS Statement: Those systems with pertinent positive or pertinent negative responses have been documented in the HPI. ROS Other: All systems not noted in ROS Statement are negative. Past Medical History Past Medical History: Cancer, COPD, Deep Vein Thrombosis (DVT), Hypertension, Pneumonia, Rheumatoid Arthritis (RA) Additional Past Medical History / Comment(s): hearing difficulty currently, colitis, osteopenia, hx cancer of appendix, uses oxygen 2L continuous. chronic back pain, restless leg, recent admission for exacerbation of COPD. 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 Colonoscopy 2017. pain procedure at [facility] with Dr Ty. TAD with unilateral oophorectomy 1983. Partial vulvectomy in 2000. Past Anesthesia/Blood Transfusion Reactions: No Reported Reaction Additional Past Anesthesia/Blood Transfusion Reaction / Comment(s): states is not supposed to have general anesthesia R/T awaiting lung transplant Past Psychological History: ADD/ADHD, Anxiety Smoking Status: Former smoker Past Alcohol Use History: None Reported Past Drug Use History: None Reported - Past Family History Father Family Medical History: Cancer, COPD Additional Family Medical History / Comment(s): COLON cancer Mother Family Medical History: Cancer Additional Family Medical History / Comment(s): ESOPHAGUS cancer Sister(s) Family Medical History: Cancer Additional Family Medical History / Comment(s): CERVICAL cancer General Exam Limitations: no limitations General appearance: alert, in no apparent distress Head exam: Present: atraumatic, normocephalic, normal inspection Eye exam: Present: normal appearance, PERRL, EOMI. Absent: scleral icterus, conjunctival injection, periorbital swelling ENT exam: Present: normal exam, mucous membranes moist Neck exam: Present: normal inspection, full ROM. Absent: tenderness, meningismus, lymphadenopathy Respiratory exam: Present: normal lung sounds bilaterally. Absent: respiratory distress, wheezes, rales, rhonchi, stridor, chest wall tenderness, accessory muscle use, decreased breath sounds, prolonged expiratory Cardiovascular Exam: Present: regular rate, normal rhythm, normal heart sounds. Absent: systolic murmur, diastolic murmur, rubs, gallop, clicks GI/Abdominal exam: Present: soft, distended, normal bowel sounds. Absent: tenderness, guarding, rebound, rigid Extremities exam: Present: normal capillary refill. Absent: tenderness, pedal edema, joint swelling, calf tenderness Back exam: Present: normal inspection, full ROM. Absent: tenderness, CVA tenderness (R), CVA tenderness (L), muscle spasm, paraspinal tenderness, vertebral tenderness Neurological exam: Present: alert, oriented X3, CN II-XII intact Psychiatric exam: Present: normal affect, normal mood Skin exam: Present: warm, dry, intact, normal color. Absent: rash, cyanosis, diaphoretic, erythema, petechiae, pallor, mottled Course Vital Signs 05/22/21 05/22/21 05/22/21 14:43 15:00 16:20 Temperature 98 F Pulse Rate 94 79 79 Respiratory 16 20 22 Rate Blood Pressure 129/73 130/69 146/75 O2 Sat by Pulse 98 100 100 Oximetry 05/22/21 17:18 Temperature Pulse Rate 104 H Respiratory 20 Rate Blood Pressure 147/96 O2 Sat by Pulse 100 Oximetry EKG Findings - EKG Results: EKG: sinus rhythm (Ventricular rate of 91, ME interval 0.136, QRS of 0.66, QTC of 0.423), not changed from: (04/23/2021) Medical Decision Making - Medical Decision Making EKG is normal sinus rhythm with no ectopy or ST elevation. Troponin is negative at 0.012. WBC count is 22.1 with a neutrophil count of 20.3. Chest x-ray shows mild patchy infiltrate in the left lower lobe and right upper lobe. Patient will be admitted with pneumonia. Case discussed with Dr. Flores. - Lab Data Result diagrams: 05/22/21 15:19 05/22/21 15:19 Lab Results 05/22/21 05/22/21 05/22/21 Range/Units 15:19 15:19 15:19 WBC 22.1 H (3.8-10.6) k/uL RBC 4.57 (3.80-5.40) m/uL Hgb 11.8 (11.4-16.0) gm/dL Hct 37.8 (34.0-46.0) % MCV 82.6 (80.0-100.0) fL MCH 25.8 (25.0-35.0) pg MCHC 31.2 (31.0-37.0) g/dL RDW 17.0 H (11.5-15.5) % Plt Count 361 (150-450) k/uL MPV 8.0 Neutrophils % 92 % Lymphocytes % 4 % Monocytes % 3 % Eosinophils % 0 % Basophils % 0 % Neutrophils # 20.3 H (1.3-7.7) k/uL Lymphocytes # 0.8 L (1.0-4.8) k/uL Monocytes # 0.6 (0-1.0) k/uL Eosinophils # 0.1 (0-0.7) k/uL Basophils # 0.0 (0-0.2) k/uL Anisocytosis Slight PT 9.3 (9.0-12.0) sec INR 0.8 (<1.2) APTT 21.2 L (22.0-30.0) sec Sodium (137-145) mmol/L Potassium (3.5-5.1) mmol/L Chloride (98-107) mmol/L Carbon Dioxide (22-30) mmol/L Anion Gap mmol/L BUN (7-17) mg/dL Creatinine (0.52-1.04) mg/dL Est GFR (CKD-EPI)AfAm (>60 ml/min/1.73 sqM) Est GFR (CKD-EPI)NonAf (>60 ml/min/1.73 sqM) Glucose (74-99) mg/dL Plasma Lactic Acid [place] (0.7-2.0) mmol/L Calcium (8.4-10.2) mg/dL Magnesium (1.6-2.3) mg/dL Total Bilirubin (0.2-1.3) mg/dL AST (14-36) U/L ALT (4-34) U/L Alkaline Phosphatase (38-126) U/L Troponin I (0.000-0.034) ng/mL Total Protein (6.3-8.2) g/dL Albumin (3.5-5.0) g/dL Urine Color Yellow Urine Appearance Clear (Clear) Urine pH 6.5 (5.0-8.0) Ur Specific [place] 1.021 (1.001-1.035) Urine Protein Trace H (Negative) Urine Glucose (UA) Negative (Negative) Urine Ketones Negative (Negative) Urine Blood Small H (Negative) Urine Nitrite Negative (Negative) Urine Bilirubin Negative (Negative) Urine Urobilinogen <2.0 (<2.0) mg/dL Ur Leukocyte Esterase Moderate H (Negative) Urine RBC 9 H (0-5) /hpf Urine WBC 5 (0-5) /hpf Ur Squamous Epith Cells 2 (0-4) /hpf Hyaline Casts 1 (0-2) /lpf Urine Mucus Rare H (None) /hpf 05/22/21 05/22/21 05/22/21 Range/Units 15:19 15:19 15:19 WBC (3.8-10.6) k/uL RBC (3.80-5.40) m/uL Hgb (11.4-16.0) gm/dL Hct (34.0-46.0) % MCV (80.0-100.0) fL MCH (25.0-35.0) pg MCHC (31.0-37.0) g/dL RDW (11.5-15.5) % Plt Count (150-450) k/uL MPV Neutrophils % % Lymphocytes % % Monocytes % % Eosinophils % % Basophils % % Neutrophils # (1.3-7.7) k/uL Lymphocytes # (1.0-4.8) k/uL Monocytes # (0-1.0) k/uL Eosinophils # (0-0.7) k/uL Basophils # (0-0.2) k/uL Anisocytosis PT (9.0-12.0) sec INR (<1.2) APTT (22.0-30.0) sec Sodium 133 L (137-145) mmol/L Potassium 4.5 (3.5-5.1) mmol/L Chloride 93 L (98-107) mmol/L Carbon Dioxide 34 H (22-30) mmol/L Anion Gap 6 mmol/L BUN 15 (7-17) mg/dL Creatinine 0.63 (0.52-1.04) mg/dL Est GFR (CKD-EPI)AfAm >90 (>60 ml/min/1.73 sqM) Est GFR (CKD-EPI)NonAf >90 (>60 ml/min/1.73 sqM) Glucose 94 (74-99) mg/dL Plasma Lactic Acid [place] 1.9 (0.7-2.0) mmol/L Calcium 9.9 (8.4-10.2) mg/dL Magnesium 2.0 (1.6-2.3) mg/dL Total Bilirubin 0.3 (0.2-1.3) mg/dL AST 18 (14-36) U/L ALT 13 (4-34) U/L Alkaline Phosphatase 114 (38-126) U/L Troponin I <0.012 (0.000-0.034) ng/mL Total Protein 6.5 (6.3-8.2) g/dL Albumin 3.9 (3.5-5.0) g/dL Urine Color Urine Appearance (Clear) Urine pH (5.0-8.0) Ur Specific [place] (1.001-1.035) Urine Protein (Negative) Urine Glucose (UA) (Negative) Urine Ketones (Negative) Urine Blood (Negative) Urine Nitrite (Negative) Urine Bilirubin (Negative) Urine Urobilinogen (<2.0) mg/dL Ur Leukocyte Esterase (Negative) Urine RBC (0-5) /hpf Urine WBC (0-5) /hpf Ur Squamous Epith Cells (0-4) /hpf Hyaline Casts (0-2) /lpf Urine Mucus (None) /hpf Disposition Clinical Impression: Pneumonia Disposition: ADMITTED IP TO THIS [facility] Decision Date: 05/22/21 Decision Time: 16:34
[2021-05-22 15:26] LABS: Anisocytosis Slight; Basophils % (A) 0 %; Eosinophils # (A) 0.1 k/uL (0-0.7); Eosinophils % (A) 0 %; HCT 37.8 % (34.0-46.0); HGB 11.8 gm/dL (11.4-16.0); Lymphocytes # (A) 0.8 k/uL (1.0-4.8); Lymphocytes % (A) 4 %; MCH 25.8 pg (25.0-35.0); MCHC 31.2 g/dL (31.0-37.0); MCV 82.6 fL (80.0-100.0); Monocytes # (A) 0.6 k/uL (0-1.0); Monocytes % (A) 3 %; Neutrophils # (A) 20.3 k/uL (1.3-7.7); Neutrophils % (A) 92 %; Platelet Count 361 k/uL (150-450); RBC 4.57 m/uL (3.80-5.40); WBC 22.1 k/uL (3.8-10.6)
[2021-05-22 15:37] LABS: ALT 13 U/L (4-34); AST 18 U/L (14-36); African American GFR (CKD) >90 (>60 ml/min/1.73 sqM); Albumin 3.9 g/dL (3.5-5.0); Alkaline Phosphatase 114 U/L (38-126); Anion Gap 6 mmol/L; Blood Urea Nitrogen 15 mg/dL (7-17); Calcium 9.9 mg/dL (8.4-10.2); Carbon Dioxide 34 mmol/L (22-30); Chloride 93 mmol/L (98-107); Glucose 94 mg/dL (74-99); Non-African American GFR(CKD) >90 (>60 ml/min/1.73 sqM); Potassium 4.5 mmol/L (3.5-5.1); Sodium 133 mmol/L (137-145); Total Bilirubin 0.3 mg/dL (0.2-1.3); Total Protein 6.5 g/dL (6.3-8.2)
--- NOTE | 2021-05-22 15:40 | XR ---
EXAMINATION TYPE: XR chest 2V DATE OF EXAM: 05/22/2021 COMPARISON: 04/23/2021 HISTORY: Pain TECHNIQUE: FINDINGS: Heart and mediastinum are within normal limits. There is some mild patchy infiltrate in the left lower lobe and right upper lobe. There are no hilar masses. There is no heart failure. There is no pleural effusion. The bones are osteopenic. There is mild anterior wedging of mid thoracic verteb ra. IMPRESSION: There is some minimal bilateral infiltrates that are improved compared to old exam. No he art failure. There are some mild osteoporotic compression fractures in the mid thoracic spine.
[2021-05-22 15:44] LABS: INR 0.8 (<1.2); Partial Thromboplastin Time 21.2 sec (22.0-30.0); Prothrombin Time 9.3 sec (9.0-12.0)
[2021-05-22 16:02] LABS: Appearance,Urine Clear (Clear); Bilirubin,Urine Negative (Negative); Blood,Urine Small (Negative); Color,Urine Yellow; Glucose,Urine (UA) Negative (Negative); Hyaline Casts,Urine 1 /lpf (0-2); Ketones,Urine Negative (Negative); Leukocyte Esterase,Urine Moderate (Negative); Mucus,Urine Rare /hpf; Nitrite,Urine Negative (Negative); PH, Urine 6.5 (5.0-8.0); Protein,Urine Trace (Negative); RBC,Urine 9 /hpf (0-5); Specific Gravity,Urine 1.021 (1.001-1.035); Squamous Epithelial Cell,Urine 2 /hpf (0-4); Urobilinogen,Urine <2.0 mg/dL (<2.0); WBC,Urine 5 /hpf (0-5)
[2021-05-22] MEDS ORDERED: NALOXONE 0.4 MG/ML 1 ML VIAL IV PRN (16:32)
[2021-05-22] MEDS ORDERED: ACETAMINOPHEN TAB 325 MG TAB PO PRN (16:32)
[2021-05-22] MEDS ORDERED: VANCOMYCIN IV PER PHARMACY 1 EACH MISC MISCELLANE PRN (17:19)
[2021-05-22] MEDS ORDERED: polyethylene glycoL 3350 17 GM POWD.PACK PO PRN (17:26)
[2021-05-22] MEDS ORDERED: LIDOCAINE 5% PATCH TOPICAL PRN (17:26)
[2021-05-22] MEDS ORDERED: VANCOMYCIN 1,250 MG in SODIUM CHLORIDE 0.9% 250 ML IVPB ONE (17:45)
--- NOTE | 2021-05-22 18:04 | P.HPIM ---
History of Present Illness H&P Date: 05/22/21 Chief Complaint: PNA, UTI, COPD EXACERBATION, DEBILITY Patient is a 66-year-old female with past medical history of COPD home oxygen dependent on 2 L, obstructive sleep apnea on BiPAP dependent, rheumatoid arthritis, seizure disorder, hypertension, and recent history of COVID-19 infection. Patient was discharged from rehabilitation 2 weeks ago. Patient's sister, Candace, Candace is at bedside. Patient's sister admits that since the patient has been home she's been staying in bed. Patient has become very weak at home. The reason patient's sister brought her to the emergency department is because patient felt very weak to the point she fell to the ground. Patient denied loss of consciousness. Patient just states she couldn't keep herself up anymore. Patient denies focal neurological deficits. Patient was aware of everything that was going on around her before, during, after the incident. Due to her multiple hospital stays patient has had a thorough neuro cardio workup. MRI of brain was negative, EEG was negative, patient was ruled out for atrial fibrillation. Cardiology and neurology followed the patient closely. Upon further review in the emergency department patient did show some evidence of pneumonia by chest x-ray and evidence of UTI by urinalysis. Patient denies chest pain and further denies increased shortness of breath compared to her normal. Patient will be treated for hospital-acquired pneumonia with COPD exacerbation and a UTI. Case management will be consulted. Patient does admit to increased depression. Cymbalta will be increased to 30 mg by mouth twice a day. Review of Systems Constitutional: Reports chronic pain, Reports fatigue, Reports malaise, Reports weakness Ears, nose, mouth and throat: Reports as per HPI Cardiovascular: Reports decreased exercise tolerance, Reports dyspnea on exertion, Reports shortness of breath Respiratory: Reports dyspnea, Reports home oxygen, Reports respiratory infections, Reports sleep apnea Gastrointestinal: Reports as per HPI Genitourinary: Reports as per HPI Musculoskeletal: Reports atrophy, Reports gait dysfunction, Reports morning stiffness, Reports muscle cramps, Reports muscle weakness Integumentary: Reports as per HPI Neurological: Reports gait dysfunction, Reports weakness Psychiatric: Reports depression Endocrine: Reports as per HPI Hematologic/Lymphatic: Reports as per HPI Allergic/Immunologic: Reports as per HPI Past Medical History Past Medical History: Cancer, COPD, Deep Vein Thrombosis (DVT), Hypertension, Pneumonia, Rheumatoid Arthritis (RA) Additional Past Medical History / Comment(s): hearing difficulty currently, colitis, osteopenia, hx cancer of appendix, uses oxygen 2L continuous. chronic back pain, restless leg, recent admission for exacerbation of COPD. 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 Colonoscopy 2016. pain procedure at [facility] with Dr Ty. TAD with unilateral oophorectomy 1983. Partial vulvectomy in 2000. Past Anesthesia/Blood Transfusion Reactions: No Reported Reaction Additional Past Anesthesia/Blood Transfusion Reaction / Comment(s): states is not supposed to have general anesthesia R/T awaiting lung transplant Past Psychological History: ADD/ADHD, Anxiety Smoking Status: Former smoker Past Alcohol Use History: None Reported Past Drug Use History: None Reported - Past Family History Father Family Medical History: Cancer, COPD Additional Family Medical History / Comment(s): COLON cancer Mother Family Medical History: Cancer Additional Family Medical History / Comment(s): ESOPHAGUS cancer Sister(s) Family Medical History: Cancer Additional Family Medical History / Comment(s): CERVICAL cancer Medications and Allergies Home Medications Medication Instructions Recorded Confirmed Type rOPINIRole HCL [Requip] 0.5 mg PO HS 03/24/20 05/22/21 History Cholecalciferol [Vitamin D3 (25 25 mcg PO DAILY 04/08/20 05/22/21 History Mcg = 1000 Iu)] Magnesium Oxide [Mag-Ox] 400 mg PO DAILY 09/15/20 05/22/21 History Melatonin 3 mg PO HS PRN 10/11/20 05/22/21 History Acetaminophen Tab [Tylenol] 650 mg PO Q4H PRN 12/30/20 05/22/21 History Fluticasone Nasal Carpenter [Flonase 1 spr EA NOSTRIL DAILY 12/30/20 05/22/21 History Nasal Carpenter] Multivitamins, Thera [Multivitamin 1 tab PO DAILY 12/30/20 05/22/21 History (formulary)] Pantoprazole Sodium [Protonix] 40 mg PO DAILY 12/30/20 05/22/21 History Theophylline 24 Hour [Sekou-24] 400 mg PO HS 12/30/20 05/22/21 History Budesonide [Pulmicort] 1 mg INHALATION RT-BID 01/15/21 05/22/21 History DULoxetine HCL [Cymbalta] 30 mg PO DAILY 01/15/21 05/22/21 History Verapamil [Isoptin] 80 mg PO AC-TID 01/15/21 05/22/21 History Furosemide [Lasix] 40 mg PO BID 02/19/21 05/22/21 History Montelukast [Singulair] 10 mg PO HS 02/19/21 05/22/21 History levETIRAcetam [Keppra] 750 mg PO BID 02/19/21 05/22/21 History Albuterol Inhaler [Ventolin Hfa 2 puff INHALATION RT-QID puff 02/25/21 05/22/21 Rx Inhaler] Psyllium Husk 100% [Metamucil 6 gm PO BID #1 packet 02/25/21 05/22/21 Rx Packet] Loratadine [Claritin] 10 mg PO DAILY 04/24/21 05/22/21 History Potassium Chloride ER [K-Dur 20] 40 meq PO DAILY 04/24/21 05/22/21 History HYDROcodone/APAP 10-325MG [[place] 1 tab PO Q6H PRN 05/22/21 05/22/21 History 10-325] Ipratropium-Albuterol Nebulize 3 ml INHALATION RT-QID PRN 05/22/21 05/22/21 History [Duoneb 0.5 mg-3 mg/3 ml Soln] Lidocaine 5% Patch [Lidoderm 5% 1 patch TOPICAL DAILY PRN 05/22/21 05/22/21 H istory Patch] polyethylene glycoL 3350 [Miralax] 17 gm PO DAILY PRN 05/22/21 05/22/21 History predniSONE 10 mg PO DAILY 05/22/21 05/22/21 History Allergies Allergy/AdvReac Type Severity Reaction Status Date / Time infliximab [From Remicade] Allergy Dyspnea/HIV Verified 05/22/21 17:07 ES propoxyphene [From Darvon] Allergy Rash/Hives Verified 05/22/21 17:07 adhesive tape AdvReac "is hard Verified 05/22/21 17:07 on skin" Physical Exam Osteopathic Statement: *. No significant issues noted on an osteopathic structural exam other than those noted in the History and Physical/Consult. Vitals: Vital Signs Temp Pulse Resp BP Pulse Ox 05/22/21 17:18 104 H 20 147/96 100 05/22/21 16:20 79 22 146/75 100 05/22/21 15:00 79 20 130/69 100 05/22/21 14:43 98 F 94 16 129/73 98 Intake and Output 05/22/21 05/22/21 05/22/21 06:59 14:59 22:59 Other: Weight 74.389 kg General: [non toxic], [no distress], [appears at stated age] Derm: [warm], [dry] Head: [atraumatic], [normocephalic], [symmetric] Eyes: [EOMI], [no lid lag], [anicteric sclera] Mouth: [no lip lesion], [mucus membranes moist] Cardiovascular: [S1S2 reg], [no murmur], [positive posterior tibial pulse bilateral], Lungs: [bilateral expiratory wheezing], [no rhonchi, no rales] , [no accessory muscle use] Abdominal: [soft], [ nontender to palpation], [no guarding], [no appreciable organomegaly] Ext: [muscle atrophy], [no edema], [no contractures] Neuro: [ CN II-XI grossly intact], [no focal neuro deficits] Psych: [Alert], [oriented], [appropriate affect] Results CBC & Chem 7: 05/22/21 15:19 05/22/21 15:19 Labs: Abnormal Lab Results - Last 24 Hours (Table) 05/22/21 05/22/21 05/22/21 Range/Units 15:19 15:19 15:19 WBC 22.1 H (3.8-10.6) k/uL RDW 17.0 H (11.5-15.5) % Neutrophils # 20.3 H (1.3-7.7) k/uL Lymphocytes # 0.8 L (1.0-4.8) k/uL APTT 21.2 L (22.0-30.0) sec Sodium (137-145) mmol/L Chloride (98-107) mmol/L Carbon Dioxide (22-30) mmol/L Urine Protein Trace H (Negative) Urine Blood Small H (Negative) Ur Leukocyte Esterase Moderate H (Negative) Urine RBC 9 H (0-5) /hpf Urine Mucus Rare H (None) /hpf 05/22/21 Range/Units 15:19 WBC (3.8-10.6) k/uL RDW (11.5-15.5) % Neutrophils # (1.3-7.7) k/uL Lymphocytes # (1.0-4.8) k/uL APTT (22.0-30.0) sec Sodium 133 L (137-145) mmol/L Chloride 93 L (98-107) mmol/L Carbon Dioxide 34 H (22-30) mmol/L Urine Protein (Negative) Urine Blood (Negative) Ur Leukocyte Esterase (Negative) Urine RBC (0-5) /hpf Urine Mucus (None) /hpf Assessment and Plan Assessment: 1. Weakness multifactorial secondary to hospital-acquired pneumonia with UTI Vancomycin and Zosyn initiated PT/OT consult Case management consulted 2. COPD exacerbation secondary to #1 Solu-Medrol 60 mg IV push every 8 hours Duo nebs and Pulmicort prescribed Check blood gas levels 3. History of oxygen dependent COPD on 2 L Continue oxygen 4. History of sleep apnea on CPAP at night Awaiting patient to obtain pressures so we can restart it 5. Leukocytosis secondary to #1 and chronic steroid use Continue to monitor 6. Questionable history of seizure disorder Continue Kera Patient has an appointment with neurology in May for reassessment Prior EEG and MRI were insignificant 7. Depression Increase Cymbalta to 30 mg by mouth twice a day 8. Chronic pain secondary to RA Restart [place] 9. Chronic conditions which include hypertension, rheumatoid arthritis, GERD Restart home medications 10. GI DVT prophylaxis 11. A.m. labs Patient is a full code power of sports attorney is her son Juventino Mayfield phone number [phone]. Her daughter Candace was at bedside phone number is [phone] Admit to inpatient with likely greater than a 2 midnight stay at the hospital Greater than 45 minutes spent coordinating care, counseling, and documentation Time with Patient: Greater than 30
[2021-05-22 19:55] LABS: VBG PH 7.38 (7.31-7.41)
[2021-05-22] MEDS: PIPERACILLIN-TAZOBACTAM 3.375 GM in SODIUM CHLORIDE 0.9% 100 ML IVPB SCH (20:02)
[2021-05-22] MEDS: methylPREDNISolone SOD SUCCI 125 MG/2 ML VIAL IV SCH (20:02)
[2021-05-22] MEDS: FUROSEMIDE 40 MG TAB PO SCH (20:03)
[2021-05-22] MEDS: DULoxetine HCL 30 MG CAPSULE.DR PO SCH (20:03)
[2021-05-22] MEDS: THEOPHYLLINE 24 HOUR 400 MG CAP.ER.24H PO SCH (20:03)
[2021-05-22] MEDS: ASPIRIN 81 MG PO SCH (20:03)
[2021-05-22] MEDS: VERAPAMIL 80 MG TAB PO SCH (20:03)
[2021-05-22] MEDS: MONTELUKAST 10 MG TAB PO SCH (20:04)
[2021-05-22] MEDS: PSYLLIUM HUSK 100% 6 GM PACKET PO SCH (20:04)
[2021-05-22] MEDS: INSULIN ASPART (NovoLOG) 100 UNIT/ML VIAL SQ SCH ×2 (20:16→20:53)
[2021-05-22 20:41] LABS: Glucose,Whole Blood 111 mg/dL (75-99)
[2021-05-22] MEDS: ACETAMINOPHEN TAB 325 MG TAB PO PRN (20:52)
[2021-05-22] MEDS: BUDESONIDE 1 MG/2 ML NEBU INHALATION SCH (21:05)
[2021-05-22] MEDS: IPRATROPIUM-ALBUTEROL 3 ML NEB INHALATION PRN (21:05)
[2021-05-23] MEDS: methylPREDNISolone SOD SUCCI 125 MG/2 ML VIAL IV SCH ×4 (00:13→23:23)
[2021-05-23] MEDS: MELATONIN 3 MG TABLET PO PRN ×2 (00:20→21:15)
[2021-05-23] MEDS: PIPERACILLIN-TAZOBACTAM 3.375 GM in SODIUM CHLORIDE 0.9% 100 ML IVPB SCH ×4 (00:53→23:23)
[2021-05-23 07:29] LABS: Glucose,Whole Blood 120 mg/dL (75-99)
[2021-05-23] MEDS: IPRATROPIUM-ALBUTEROL 3 ML NEB INHALATION PRN ×3 (08:15→21:08)
[2021-05-23] MEDS: BUDESONIDE 1 MG/2 ML NEBU INHALATION SCH ×2 (08:15→21:08)
[2021-05-23] MEDS: INSULIN ASPART (NovoLOG) 100 UNIT/ML VIAL SQ SCH ×4 (08:15→21:11)
[2021-05-23] MEDS: PSYLLIUM HUSK 100% 6 GM PACKET PO SCH ×2 (09:00→21:12)
[2021-05-23] MEDS: MULTIVITAMINS, THERA 1 EACH TAB PO SCH (09:00)
[2021-05-23] MEDS: PANTOPRAZOLE 40 MG TABLET PO SCH (09:00)
[2021-05-23] MEDS: POTASSIUM CHLORIDE ER 20 MEQ TAB.ER PO SCH (09:00)
[2021-05-23] MEDS: CHOLECALCIFEROL 25 MCG (1000 IU) TABLET PO SCH (09:01)
[2021-05-23] MEDS: ASPIRIN 81 MG PO SCH (09:01)
[2021-05-23] MEDS: MAGNESIUM OXIDE 400 MG TAB PO SCH (09:01)
[2021-05-23] MEDS: LORATADINE 10 MG TAB PO SCH (09:01)
[2021-05-23] MEDS: FUROSEMIDE 40 MG TAB PO SCH ×2 (09:01→17:12)
[2021-05-23] MEDS: VERAPAMIL 80 MG TAB PO SCH ×3 (09:02→18:15)
[2021-05-23] MEDS: DULoxetine HCL 30 MG CAPSULE.DR PO SCH ×2 (09:02→21:11)
[2021-05-23] MEDS: VANCOMYCIN 1,250 MG in SODIUM CHLORIDE 0.9% 250 ML IVPB SCH ×2 (09:15→20:12)
[2021-05-23] MEDS: HYDROcodone/APAP 10-325MG 1 EACH TAB PO PRN ×2 (11:21→21:12)
[2021-05-23 11:29] LABS: Basophils # (A) 0.01 X 10*3/uL (0.00-0.10); Basophils % (A) 0.1 %; Eosinophils # (A) 0 X 10*3/uL (0.04-0.35); Eosinophils % (A) 0 %; HCT 34.2 % (37.2-46.3); Lymphocytes # (A) 0.48 X 10*3/uL (0.90-5.00); Lymphocytes % (A) 3.1 %; MCH 25.3 pg (27.0-32.0); MCHC 29.2 g/dL (32.0-37.0); MCV 86.6 fL (80.0-97.0); Mean Platelet Volume 10.4 fL (9.5-12.2); Monocytes # (A) 0.11 X 10*3/uL (0.20-1.00); Monocytes % (A) 0.7 %; Neutrophils # (A) 14.72 X 10*3/uL (1.80-7.70); Neutrophils % (A) 95.3 %; Platelet Count 322 X 10*3/uL (140-440); RBC 3.95 X 10*6/uL (4.10-5.20); RDW 17.4 % (11.5-14.5); WBC 15.44 X 10*3/uL (4.50-10.00)
[2021-05-23 11:39] LABS: Glucose,Whole Blood 220 mg/dL (75-99)
[2021-05-23 11:59] LABS: African American GFR (CKD) 103.2 (60.0-200.0); Albumin 3.8 g/dL (3.80-4.90); Albumin/Globulin Ratio 1.9 (1.60-3.17); BUN/Creat Ratio 24.29 Ratio (12.00-20.00); Magnesium 2.4 mg/dL (1.5-2.4); Phosphorus 4.2 mg/dL (2.4-5.1); Total Bilirubin 0.3 mg/dL (0.3-1.2); Total Protein 5.8 g/dL (6.2-8.2)
--- NOTE | 2021-05-23 13:08 | P.PN ---
<Kapil Gonzalez - Last Filed: 05/23/21 12:47> Subjective Progress Note Date: 05/23/21 Hospital course: Patient is a 66-year-old female with a past medical history of advanced end-st age COPD home oxygen dependent on 3 L at all times, chronic hypoxic respiratory failure, history of Klebsiella pneumoniae infection, recent Covid 19 virus infection, rheumatoid arthritis, SOCRATES BiPAP dependent, rheumatoid arthritis, seizure disorder, and hypertension. She presented to the hospital on 05/22/21 with a chief complaint of failure to thrive/increased fatigue after being discharged from rehabilitation Center 2 weeks ago. Per report patient has reportedly been staying in bed since recent discharge from rehab and has had progressive weakness at home. Patient presented to the hospital on 05/22/21 after reportedly falling to the ground due to significant weakness and reports of being unable to hold herself up. Labs were obtained showing significant leukocytosis with WBC count of 22.1 with a left shift with neutrophils of 20.3 and lymphocytes of 0.8. Urinalysis negative for infection. Chest x-ray showing minimal bilateral infiltrates improved from previous exam with some mild o steoporotic compression fractures in the mid thoracic spine. Physical exam: Patient was seen and fully evaluated at the bedside this morning. She reports continued weakness. She denies having headache, lightheadedness, dizziness, changes in vision or hearing, chest pain or palpitations, increased or changes in a sling shortness of breath/dyspnea with exertion, abdominal pain, nausea, vomiting, or having any difficulties with or changes in her urinary or bowel function, or experiencing any numbness/tingling/weakness/swelling in her extremities. Leukocytosis improving with WBC 15.44 from previous 22.1 . There are concerns for bacterial tracheobronchitis vs advancing end-stage COPD. X-ray showing slight improvement from previous x-ray obtained. We will obtain a pro- calcitonin and repeat chest x-ray in morning. Leukocytosis possibly resulting from infectious process vs daily use of prednisone. We will review pro-Edi and repeat chest x-ray and if negative Zosyn and vancomycin to be discontinued. Vital signs reviewed and stable. General: Nontoxic, no distress and appears stated age. Derm: Skin warm and dry, normal coloration for ethnicity. Head: Atraumatic, normocephalic and symmetric. Eyes: EOMs intact, no lid lag, and anicteric sclera Mouth: no lip lesions, mucus membranes moist Cardiovascular: regular rate and rhythm with normal S1S2, no murmur, positive posterior tibial pulses bilaterally, and cap refill < 2 seconds. Lungs: Respirations even, regular, and unlabored on 3 L O2 via nasal cannula. Lungs diminished at bilateral bases otherwise clear with no rhonchi, no rales, no wheezing, and no accessory muscle usage. Abdominal: soft, nontender to palpation, no guarding, no appreciable organomegaly Ext: ROM intact. No gross muscle atrophy, no edema, no contractures Neuro: Speech clear, face symmetrical and CN II-XII grossly intact with no noted focal neuro deficits Psych: Alert and oriented to person, place, time, and situation. Appropriate and pleasant affect. Assessment and Plan of Care: Leukocytosis possibly secondary to infectious process vs daily use of steroids with prednisone Concern for bacterial tracheobronchitis vs advancing end-stage COPD Failure to thrive, likely secondary to advancing end-stage COPD -Chest x-ray showing minimal bilateral infiltrates improved from previous exam with some mild osteoporotic compression fractures in the mid thoracic spine. -Will check pro-calcitonin and repeat chest x-ray if negative may discontinue antibiotics. -Continue IV antibiotics vancomycin and Zosyn pending further results. -Consult placed to pulmonology. -Oxygenation as needed to maintain SpO2 equal to or greater than 90%. Patient on baseline 3 L O2. -Continue Symbicort twice daily as well as as needed nebulizer treatments for shortness of breath. -PT/OT consult -Palliative care consult Obstructive sleep apnea BiPAP dependent nightly -Continuation of BiPAP nightly and as needed Seizure disorder -Seizure precautions and aspiration precautions in place. -Continue daily medication management with Keppra 750 mg twice daily. Hypertension -Monitor vital signs and continue daily medication regimen. Rheumatoid arthritis -Symptomatic care and pain management. CODE STATUS: Full code DVT prophylaxis: Heparin Discussed with: Patient and RN Anticipated discharge date: Clinical course to determine Anticipated discharge place: SNF versus home with palliative care as discussed with patient A total of 45 minutes was spent on the care of this complex patient more than 50% of the time was spent in counseling and care coordination. Objective - Vital Signs Vital signs: Vital Signs Temp 98.5 F 05/23/21 06:55 Pulse 80 05/23/21 08:16 Resp 20 05/23/21 06:55 BP 152/80 07/26/21 06:55 Pulse Ox 99 05/23/21 06:55 Intake & Output 05/22/21 05/23/21 05/23/21 18:59 06:59 18:59 Intake Total 890 Balance 890 Weight 74.389 kg Intake: Intake, IV Titration 350 Amount Piperacillin-Tazobactam 3 100 .375 gm In Sodium Chloride 0.9% 100 ml @ 25 mls/hr IVPB Q8HR [facility] Rx# :[id number] Vancomycin 1,250 mg In 250 Sodium Chloride 0.9% 250 ml @ 125 mls/hr IVPB ONCE ONE Rx#:[id number] Oral 540 Other: # Voids 4 - Labs CBC & Chem 7: 05/23/21 06:37 05/23/21 06:37 Labs: Abnormal Lab Results - Last 24 Hours (Table) 05/22/21 05/22/21 05/22/21 Range/Units 15:19 15:19 15:19 WBC 22.1 H (3.8-10.6) k/uL RDW 17.0 H (11.5-15.5) % Neutrophils # 20.3 H (1.3-7.7) k/uL Lymphocytes # 0.8 L (1.0-4.8) k/uL APTT 21.2 L (22.0-30.0) sec VBG pCO2 (37-51) mmHg VBG HCO3 (24-28) mmol/L Sodium (137-145) mmol/L Chloride (98-107) mmol/L Carbon Dioxide (22-30) mmol/L POC Glucose (mg/dL) (75-99) mg/dL Urine Protein Trace H (Negative) Urine Blood Small H (Negative) Ur Leukocyte Esterase Moderate H (Negative) Urine RBC 9 H (0-5) /hpf Urine Mucus Rare H (None) /hpf 05/22/21 05/22/21 05/22/21 Range/Units 15:19 19:35 20:39 WBC (3.8-10.6) k/uL RDW (11.5-15.5) % Neutrophils # (1.3-7.7) k/uL Lymphocytes # (1.0-4.8) k/uL APTT (22.0-30.0) sec VBG pCO2 53 H (37-51) mmHg VBG HCO3 31 H (24-28) mmol/L Sodium 133 L (137-145) mmol/L Chloride 93 L (98-107) mmol/L Carbon Dioxide 34 H (22-30) mmol/L POC Glucose (mg/dL) 111 H (75-99) mg/dL Urine Protein (Negative) Urine Blood (Negative) Ur Leukocyte Esterase (Negative) Urine RBC (0-5) /hpf Urine Mucus (None) /hpf 05/23/21 Range/Units 06:58 WBC (3.8-10.6) k/uL RDW (11.5-15.5) % Neutrophils # (1.3-7.7) k/uL Lymphocytes # (1.0-4.8) k/uL APTT (22.0-30.0) sec VBG pCO2 (37-51) mmHg VBG HCO3 (24-28) mmol/L Sodium (137-145) mmol/L Chloride (98-107) mmol/L Carbon Dioxide (22-30) mmol/L POC Glucose (mg/dL) 120 H (75-99) mg/dL Urine Protein (Negative) Urine Blood (Negative) Ur Leukocyte Esterase (Negative) Urine RBC (0-5) /hpf Urine Mucus (None) /hpf <Linda Elise - Last Filed: 05/23/21 19:44> Subjective Patient seen and examined independently. Patient was also seen by Kapil Gonzalez NP and case was discussed. I am in agreement with subjective, physical exam, assessment and plan as written above and amended below. No chest pain, shortness of breath appears to be at baseline, still feeling very fatigued. She reports that her cough is intermittent. General: non toxic, no distress, appears at stated age Derm: warm, dry Head: atraumatic, normocephalic, symmetric Eyes: EOMI, no lid lag, anicteric sclera Mouth: no lip lesion, mucus membranes moist Cardiovascular: S1S2 reg, no murmur, positive posterior tibial pulse bilateral, Lungs: Coarse breath sounds bilateral, no rhonchi, no rales , no accessory muscle use Objective - Vital Signs Vital signs: Vital Signs Temp 99.3 F 05/23/21 13:20 Pulse 90 05/23/21 16:27 Resp 20 05/23/21 13:20 BP 128/63 07/26/21 13:20 Pulse Ox 97 05/23/21 13:20 Intake & Output 05/23/21 05/23/21 05/24/21 06:59 18:59 06:59 Intake Total 890 Balance 890 Intake: Intake, IV Titration 350 Amount Piperacillin-Tazobactam 3 100 .375 gm In Sodium Chloride 0.9% 100 ml @ 25 mls/hr IVPB Q8HR [facility] Rx# :[id number] Vancomycin 1,250 mg In 250 Sodium Chloride 0.9% 250 ml @ 125 mls/hr IVPB ONCE ONE Rx#:[id number] Oral 540 Other: # Voids 4 5 # Bowel Movements 1 - Labs CBC & Chem 7: 05/23/21 06:37 05/23/21 06:37 Labs: Abnormal Lab Results - Last 24 Hours (Table) 05/22/21 05/22/21 05/23/21 Range/Units 19:35 20:39 06:37 WBC 15.44 H (4.50-10.00) X 10*3/uL RBC 3.95 L (4.10-5.20) X 10*6/uL Hgb 10.0 L (12.0-15.0) g/dL Hct 34.2 L (37.2-46.3) % MCH 25.3 L (27.0-32.0) pg MCHC 29.2 L (32.0-37.0) g/dL RDW 17.4 H (11.5-14.5) % Immature Gran # 0.12 H (0.00-0.04) X 10*3/uL Neutrophils # 14.72 H (1.80-7.70) X 10*3/uL Lymphocytes # 0.48 L (0.90-5.00) X 10*3/uL Monocytes # 0.11 L (0.20-1.00) X 10*3/uL Eosinophils # 0 L (0.04-0.35) X 10*3/uL VBG pCO2 53 H (37-51) mmHg VBG HCO3 31 H (24-28) mmol/L Carbon Dioxide (21.6-31.8) mmol/L BUN/Creatinine Ratio (12.00-20.00) Ratio Glucose (70-110) mg/dL POC Glucose (mg/dL) 111 H (75-99) mg/dL AST (13-35) U/L Total Protein (6.2-8.2) g/dL 05/23/21 05/23/21 05/23/21 Range/Units 06:37 06:58 11:35 WBC (4.50-10.00) X 10*3/uL RBC (4.10-5.20) X 10*6/uL Hgb (12.0-15.0) g/dL Hct (37.2-46.3) % MCH (27.0-32.0) pg MCHC (32.0-37.0) g/dL RDW (11.5-14.5) % Immature Gran # (0.00-0.04) X 10*3/uL Neutrophils # (1.80-7.70) X 10*3/uL Lymphocytes # (0.90-5.00) X 10*3/uL Monocytes # (0.20-1.00) X 10*3/uL Eosinophils # (0.04-0.35) X 10*3/uL VBG pCO2 (37-51) mmHg VBG HCO3 (24-28) mmol/L Carbon Dioxide 32.0 H (21.6-31.8) mmol/L BUN/Creatinine Ratio 24.29 H (12.00-20.00) Ratio Glucose 111 H (70-110) mg/dL POC Glucose (mg/dL) 120 H 220 H (75-99) mg/dL AST 10 L (13-35) U/L Total Protein 5.8 L (6.2-8.2) g/dL 05/23/21 Range/Units 16:32 WBC (4.50-10.00) X 10*3/uL RBC (4.10-5.20) X 10*6/uL Hgb (12.0-15.0) g/dL Hct (37.2-46.3) % MCH (27.0-32.0) pg MCHC (32.0-37.0) g/dL RDW (11.5-14.5) % Immature Gran # (0.00-0.04) X 10*3/uL Neutrophils # (1.80-7.70) X 10*3/uL Lymphocytes # (0.90-5.00) X 10*3/uL Monocytes # (0.20-1.00) X 10*3/uL Eosinophils # (0.04-0.35) X 10*3/uL VBG pCO2 (37-51) mmHg VBG HCO3 (24-28) mmol/L Carbon Dioxide (21.6-31.8) mmol/L BUN/Creatinine Ratio (12.00-20.00) Ratio Glucose (70-110) mg/dL POC Glucose (mg/dL) 136 H (75-99) mg/dL AST (13-35) U/L Total Protein (6.2-8.2) g/dL
[2021-05-23 16:36] LABS: Glucose,Whole Blood 136 mg/dL (75-99)
[2021-05-23] MEDS: HEPARIN SODIUM,PORCINE/PF 5,000 UNIT/0.5 ML SYRINGE SQ SCH ×2 (17:12→23:23)
[2021-05-23 20:26] LABS: Glucose,Whole Blood 232 mg/dL (75-99)
[2021-05-23] MEDS: MONTELUKAST 10 MG TAB PO SCH (21:12)
[2021-05-23] MEDS: THEOPHYLLINE 24 HOUR 400 MG CAP.ER.24H PO SCH (21:12)
[2021-05-23] MEDS: ACETAMINOPHEN TAB 325 MG TAB PO PRN (23:33)
[2021-05-24 06:55] LABS: Glucose,Whole Blood 139 mg/dL (75-99)
[2021-05-24] MEDS: BUDESONIDE 1 MG/2 ML NEBU INHALATION SCH ×2 (07:25→20:31)
[2021-05-24] MEDS: IPRATROPIUM-ALBUTEROL 3 ML NEB INHALATION PRN ×2 (07:25→11:16)
[2021-05-24] MEDS: INSULIN ASPART (NovoLOG) 100 UNIT/ML VIAL SQ SCH ×4 (08:03→21:00)
[2021-05-24] MEDS: HEPARIN SODIUM,PORCINE/PF 5,000 UNIT/0.5 ML SYRINGE SQ SCH ×2 (08:03→16:50)
[2021-05-24] MEDS: PSYLLIUM HUSK 100% 6 GM PACKET PO SCH ×2 (08:03→20:58)
[2021-05-24] MEDS: LORATADINE 10 MG TAB PO SCH (08:04)
[2021-05-24] MEDS: ASPIRIN 81 MG PO SCH (08:04)
[2021-05-24] MEDS: FUROSEMIDE 40 MG TAB PO SCH ×2 (08:04→16:50)
[2021-05-24] MEDS: PANTOPRAZOLE 40 MG TABLET PO SCH (08:04)
[2021-05-24] MEDS: CHOLECALCIFEROL 25 MCG (1000 IU) TABLET PO SCH (08:04)
[2021-05-24] MEDS: MAGNESIUM OXIDE 400 MG TAB PO SCH (08:04)
[2021-05-24] MEDS: VERAPAMIL 80 MG TAB PO SCH ×3 (08:04→16:50)
[2021-05-24] MEDS: DULoxetine HCL 30 MG CAPSULE.DR PO SCH ×2 (08:04→21:00)
[2021-05-24] MEDS: MULTIVITAMINS, THERA 1 EACH TAB PO SCH (08:04)
[2021-05-24] MEDS: methylPREDNISolone SOD SUCCI 125 MG/2 ML VIAL IV SCH ×3 (08:04→21:01)
[2021-05-24] MEDS: POTASSIUM CHLORIDE ER 20 MEQ TAB.ER PO SCH (08:04)
[2021-05-24 08:09] LABS: Anisocytosis Slight; HCT 32.1 % (34.0-46.0); Hypochromasia Slight; MCH 25.9 pg (25.0-35.0); MCHC 30.6 g/dL (31.0-37.0); MCV 84.7 fL (80.0-100.0); Mean Platelet Volume 7.6; Platelet Count 342 k/uL (150-450); RBC 3.79 m/uL (3.80-5.40); RDW 17.6 % (11.5-15.5); WBC 15.9 k/uL (3.8-10.6)
[2021-05-24 08:21] LABS: HGB 9.8 gm/dL (11.4-16.0)
[2021-05-24 08:22] LABS: African American GFR (CKD) >90 (>60 ml/min/1.73 sqM); Anion Gap 2 mmol/L; Blood Urea Nitrogen 20 mg/dL (7-17); Calcium 9.2 mg/dL (8.4-10.2); Carbon Dioxide 37 mmol/L (22-30); Chloride 99 mmol/L (98-107); Glucose 132 mg/dL (74-99); Non-African American GFR(CKD) >90 (>60 ml/min/1.73 sqM); Sodium 138 mmol/L (137-145)
--- NOTE | 2021-05-24 08:43 | P.PN ---
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 She presented to the hospital on 05/22/21 with a chief complaint of failure to thrive/increased fatigue after being discharged from rehabilitation [facility] 2 weeks ago. Per report patient has reportedly been staying in bed since recent discharge from rehab and has had progressive weakness at home. Patient presented to the hospital on 05/22/21 after reportedly falling to the ground due to significant weakness and reports of being unable to hold herself up. Labs were obtained showing significant leukocytosis with WBC count of 22.1 with a left shift with neutrophils of 20.3 and lymphocytes of 0.8. Urinalysis negative for infection. Chest x-ray showing minimal bilateral infiltrates improved from previous exam with some mild o steoporotic compression fractures in the mid thoracic spine. Physical exam: Patient was seen and fully evaluated at the bedside this morning. She reports c ontinued weakness. She denies having headache, lightheadedness, dizziness, changes in vision or hearing, chest pain or palpitations, increased or changes in a sling shortness of breath/dyspnea with exertion, abdominal pain, nausea, vomiting, or having any difficulties with or changes in her urinary or bowel function, or experiencing any numbness/tingling/weakness/swelling in her extremities. Leukocytosis improving with WBC 15.44 from previous 22.1 . There are concerns for bacterial tracheobronchitis vs advancing end-stage COPD. X-ray showing slight improvement from previous x-ray obtained. We will obtain a pro- calcitonin and repeat chest x-ray in morning. Leukocytosis possibly resulting from infectious process vs daily use of prednisone. We will review pro-Edi and repeat chest x-ray and if negative Zosyn and vancomycin to be discontinued. Vital signs reviewed and stable. General: Nontoxic, no distress and appears stated age. Derm: Skin warm and dry, normal coloration for ethnicity. Head: Atraumatic, normocephalic and symmetric. Eyes: EOMs intact, no lid lag, and anicteric sclera Mouth: no lip lesions, mucus membranes moist Cardiovascular: regular rate and rhythm with normal S1S2, no murmur, positive posterior tibial pulses bilaterally, and cap refill < 2 seconds. Lungs: Respirations even, regular, and unlabored on 3 L O2 via nasal cannula. Lungs diminished at bilateral bases otherwise clear with no rhonchi, no rales, no wheezing, and no accessory muscle usage. Abdominal: soft, nontender to palpation, no guarding, no appreciable organomegaly Ext: ROM intact. No gross muscle atrophy, no edema, no contractures Neuro: Speech clear, face symmetrical and CN II-XII grossly intact with no noted focal neuro deficits Psych: Alert and oriented to person, place, time, and situation. Appropriate and pleasant affect. Assessment and Plan of Care: Leukocytosis possibly secondary to infectious process vs daily use of steroids with prednisone, improving Concern for bacterial tracheobronchitis vs advancing end-stage COPD Failure to thrive, likely secondary to advancing end-stage COPD -Chest x-ray showing minimal bilateral infiltrates improved from previous exam with some mild osteoporotic compression fractures in the mid thoracic spine. -Procalcitonin negative resulting in 0.09. Vancomycin and Zosyn discontinued and patient placed on doxycycline 100 mg twice a day for treatment of tracheobronchitis. -Consult placed to pulmonology, appreciate further recommendations -Oxygenation as needed to maintain SpO2 equal to or greater than 90%. Patient on baseline 3 L O2. -Continue Symbicort twice daily as well as as needed nebulizer treatments for shortness of breath. -PT/OT consult -Palliative care consult Obstructive sleep apnea BiPAP dependent nightly -Continuation of BiPAP nightly and as needed Seizure disorder -Seizure precautions and aspiration precautions in place. -Continue daily medication management with Keppra 750 mg twice daily. Hypertension -Monitor vital signs and continue daily medication regimen. Rheumatoid arthritis -Symptomatic care and pain management. CODE STATUS: Full code DVT prophylaxis: Heparin Discussed with: Patient and RN Anticipated discharge date: Clinical course to determine Anticipated discharge place: SNF versus home with palliative care as discussed with patient A total of 45 minutes was spent on the care of this complex patient more than 50% of the time was spent in counseling and care coordination. Objective - Vital Signs Vital signs: Vital Signs Temp 98.2 F 05/24/21 07:00 Pulse 88 05/24/21 07:38 Resp 18 07/27/21 07:38 BP 143/70 05/24/21 07:00 Pulse Ox 99 05/24/21 07:26 Intake & Output 05/23/21 05/24/21 05/24/21 18:59 06:59 18:59 Other: # Voids 5 2 # Bowel Movements 1 - Labs CBC & Chem 7: 05/24/21 07:28 05/24/21 07:28 Labs: Abnormal Lab Results - Last 24 Hours (Table) 05/23/21 05/23/21 05/23/21 Range/Units 06:37 06:37 11:35 WBC 15.44 H (4.50-10.00) X 10*3/uL RBC 3.95 L (4.10-5.20) X 10*6/uL Hgb 10.0 L (12.0-15.0) g/dL Hct 34.2 L (37.2-46.3) % MCH 25.3 L (27.0-32.0) pg MCHC 29.2 L (32.0-37.0) g/dL RDW 17.4 H (11.5-14.5) % Immature Gran # 0.12 H (0.00-0.04) X 10*3/uL Neutrophils # 14.72 H (1.80-7.70) X 10*3/uL Lymphocytes # 0.48 L (0.90-5.00) X 10*3/uL Monocytes # 0.11 L (0.20-1.00) X 10*3/uL Eosinophils # 0 L (0.04-0.35) X 10*3/uL Carbon Dioxide 32.0 H (21.6-31.8) mmol/L BUN (7-17) mg/dL BUN/Creatinine Ratio 24.29 H (12.00-20.00) Ratio Glucose 111 H (70-110) mg/dL POC Glucose (mg/dL) 220 H (75-99) mg/dL AST 10 L (13-35) U/L Total Protein 5.8 L (6.2-8.2) g/dL 05/23/21 05/23/21 05/24/21 Range/Units 16:32 20:17 06:41 WBC (4.50-10.00) X 10*3/uL RBC (4.10-5.20) X 10*6/uL Hgb (12.0-15.0) g/dL Hct (37.2-46.3) % MCH (27.0-32.0) pg MCHC (32.0-37.0) g/dL RDW (11.5-14.5) % Immature Gran # (0.00-0.04) X 10*3/uL Neutrophils # (1.80-7.70) X 10*3/uL Lymphocytes # (0.90-5.00) X 10*3/uL Monocytes # (0.20-1.00) X 10*3/uL Eosinophils # (0.04-0.35) X 10*3/uL Carbon Dioxide (21.6-31.8) mmol/L BUN (7-17) mg/dL BUN/Creatinine Ratio (12.00-20.00) Ratio Glucose (70-110) mg/dL POC Glucose (mg/dL) 136 H 232 H 139 H (75-99) mg/dL AST (13-35) U/L Total Protein (6.2-8.2) g/dL 05/24/21 05/24/21 Range/Units 07:28 07:28 WBC 15.9 H (4.50-10.00) X 10*3/uL RBC 3.79 L (4.10-5.20) X 10*6/uL Hgb 9.8 L D (12.0-15.0) g/dL Hct 32.1 L (37.2-46.3) % MCH (27.0-32.0) pg MCHC 30.6 L (32.0-37.0) g/dL RDW 17.6 H (11.5-14.5) % Immature Gran # (0.00-0.04) X 10*3/uL Neutrophils # (1.80-7.70) X 10*3/uL Lymphocytes # (0.90-5.00) X 10*3/uL Monocytes # (0.20-1.00) X 10*3/uL Eosinophils # (0.04-0.35) X 10*3/uL Carbon Dioxide 37 H (21.6-31.8) mmol/L BUN 20 H (7-17) mg/dL BUN/Creatinine Ratio (12.00-20.00) Ratio Glucose 132 H (70-110) mg/dL POC Glucose (mg/dL) (75-99) mg/dL AST (13-35) U/L Total Protein (6.2-8.2) g/dL <ArikLinda Vicenta - Last Filed: 05/24/21 19:18> Subjective Kapil Gonzalez NP rendered care for this patient independently, reviewed the findings and plan as documented in the note above. I did not physically speak with or examine the patient on this date. Concern is that patient has used up all of her subacute rehab days, she also recently completed rehab at an inpatient facility yet she continues to decline. Suggest palliative/hospice care. Await pulmonary recommendations. Wean steroids. Out of bed every shift. Objective - Vital Signs Vital signs: Vital Signs Temp 98.4 F 05/24/21 13:58 Pulse 103 H 05/24/21 13:58 Resp 18 05/24/21 13:58 BP 128/65 05/24/21 13:58 Pulse Ox 97 05/24/21 13:58 Intake & Output 05/24/21 05/24/21 05/25/21 06:59 18:59 06:59 Other: Voiding Method Bedside Commode # Voids 2 3 # Bowel Movements 1 - Labs CBC & Chem 7: 05/24/21 07:28 05/24/21 07:28 Labs: Abnormal Lab Results - Last 24 Hours (Table) 05/23/21 05/24/21 05/24/21 Range/Units 20:17 06:41 07:28 WBC (3.8-10.6) k/uL RBC (3.80-5.40) m/uL Hgb (11.4-16.0) gm/dL Hct (34.0-46.0) % MCHC (31.0-37.0) g/dL RDW (11.5-15.5) % Carbon Dioxide 37 H (22-30) mmol/L BUN 20 H (7-17) mg/dL Glucose 132 H (74-99) mg/dL POC Glucose (mg/dL) 232 H 139 H (75-99) mg/dL 05/24/21 05/24/21 05/24/21 Range/Units 07:28 11:16 16:27 WBC 15.9 H (3.8-10.6) k/uL RBC 3.79 L (3.80-5.40) m/uL Hgb 9.8 L D (11.4-16.0) gm/dL Hct 32.1 L (34.0-46.0) % MCHC 30.6 L (31.0-37.0) g/dL RDW 17.6 H (11.5-15.5) % Carbon Dioxide (22-30) mmol/L BUN (7-17) mg/dL Glucose (74-99) mg/dL POC Glucose (mg/dL) 158 H 154 H (75-99) mg/dL
[2021-05-24] MEDS: DOXYCYCLINE 100 MG CAP PO SCH ×2 (10:05→21:00)
[2021-05-24 11:20] LABS: Glucose,Whole Blood 158 mg/dL (75-99)
[2021-05-24 16:30] LABS: Glucose,Whole Blood 154 mg/dL (75-99)
[2021-05-24] MEDS: HYDROcodone/APAP 10-325MG 1 EACH TAB PO PRN ×2 (16:49→22:03)
[2021-05-24 20:41] LABS: Glucose,Whole Blood 172 mg/dL (75-99)
[2021-05-24] MEDS: MONTELUKAST 10 MG TAB PO SCH (21:01)
[2021-05-24] MEDS: THEOPHYLLINE 24 HOUR 400 MG CAP.ER.24H PO SCH (21:01)
[2021-05-24] MEDS: MELATONIN 3 MG TABLET PO PRN (22:04)
[2021-05-25 06:27] LABS: African American GFR (CKD) >90 (>60 ml/min/1.73 sqM); Non-African American GFR(CKD) >90 (>60 ml/min/1.73 sqM)
[2021-05-25] MEDS: HEPARIN SODIUM,PORCINE/PF 5,000 UNIT/0.5 ML SYRINGE SQ SCH ×4 (06:53→23:07)
[2021-05-25 07:11] LABS: Glucose,Whole Blood 129 mg/dL (75-99)
[2021-05-25] MEDS: INSULIN ASPART (NovoLOG) 100 UNIT/ML VIAL SQ SCH ×4 (07:11→21:20)
[2021-05-25] MEDS: MAGNESIUM OXIDE 400 MG TAB PO SCH (08:11)
[2021-05-25] MEDS: POTASSIUM CHLORIDE ER 20 MEQ TAB.ER PO SCH (08:11)
[2021-05-25] MEDS: PANTOPRAZOLE 40 MG TABLET PO SCH (08:11)
[2021-05-25] MEDS: MULTIVITAMINS, THERA 1 EACH TAB PO SCH (08:11)
[2021-05-25] MEDS: CHOLECALCIFEROL 25 MCG (1000 IU) TABLET PO SCH (08:11)
[2021-05-25] MEDS: methylPREDNISolone SOD SUCCI 125 MG/2 ML VIAL IV SCH ×2 (08:11→21:21)
[2021-05-25] MEDS: ASPIRIN 81 MG PO SCH (08:11)
[2021-05-25] MEDS: PSYLLIUM HUSK 100% 6 GM PACKET PO SCH ×2 (08:12→21:20)
[2021-05-25] MEDS: DULoxetine HCL 30 MG CAPSULE.DR PO SCH ×2 (08:12→21:19)
[2021-05-25] MEDS: LORATADINE 10 MG TAB PO SCH (08:12)
[2021-05-25] MEDS: DOXYCYCLINE 100 MG CAP PO SCH ×2 (08:12→21:19)
[2021-05-25] MEDS: FUROSEMIDE 40 MG TAB PO SCH ×2 (08:12→17:25)
[2021-05-25] MEDS: VERAPAMIL 80 MG TAB PO SCH ×3 (08:13→17:25)
[2021-05-25] MEDS: BUDESONIDE 1 MG/2 ML NEBU INHALATION SCH ×2 (08:20→21:35)
[2021-05-25] MEDS: IPRATROPIUM-ALBUTEROL 3 ML NEB INHALATION PRN ×3 (08:20→15:55)
[2021-05-25 11:18] LABS: Glucose,Whole Blood 227 mg/dL (75-99)
--- NOTE | 2021-05-25 13:29 | P.PN ---
Subjective Progress Note Date: 05/25/21 No new complaints. Breathing is improved, pain is controlled. See separate progress note dated 05/25 for GoC discussion. Objective - Vital Signs Vital signs: Vital Signs Temp 98.1 F 05/25/21 07:41 Pulse 105 H 05/25/21 12:04 Resp 18 05/25/21 07:41 BP 177/84 05/25/21 07:41 Pulse Ox 98 05/25/21 07:41 Intake & Output 05/24/21 05/25/21 05/25/21 18:59 06:59 18:59 Other: Voiding Method Bedside Commode Bedside Commode # Voids 3 1 # Bowel Movements 1 - Exam Gen: awake, alert HEENT: normocephalic, atraumatic, impaired hearing acuity, moist mucous membranes Resp: diminished air exchange, end-expiratory wheezing diffusely CVS: good distal perfusion x 4, RRR, no murmurs GI: soft, NTTP, ND : no SPT, no CVAT, patterson catheter not present MSK: no pitting edema, no clubbing Neuro: non-focal, moving all extremities Psych: cooperative, euthymic mood - Labs CBC & Chem 7: 05/24/21 07:28 05/25/21 05:15 Labs: Abnormal Lab Results - Last 24 Hours (Table) 05/24/21 05/24/21 05/25/21 Range/Units 16:27 20:39 07:10 POC Glucose (mg/dL) 154 H 172 H 129 H (75-99) mg/dL 05/25/21 Range/Units 11:17 POC Glucose (mg/dL) 227 H (75-99) mg/dL Assessment and Plan Assessment: Leukocytosis possibly secondary to infectious process vs daily use of steroids with prednisone, improving Concern for bacterial tracheobronchitis vs advancing end-stage COPD Failure to thrive, likely secondary to advancing end-stage COPD -Chest x-ray showing minimal bilateral infiltrates improved from previous exam with some mild osteoporotic compression fractures in the mid thoracic spine. -Procalcitonin negative resulting in 0.09. Vancomycin and Zosyn discontinued and patient placed on doxycycline 100 mg twice a day for treatment of tracheobronchitis. -Consult placed to pulmonology, appreciate further recommendations -Oxygenation as needed to maintain SpO2 equal to or greater than 90%. Patient on baseline 3 L O2. -Continue Symbicort twice daily as well as as needed nebulizer treatments for shortness of breath. -PT/OT consult -Palliative care consult Obstructive sleep apnea BiPAP dependent nightly -Continuation of BiPAP nightly and as needed Seizure disorder -Seizure precautions and aspiration precautions in place. -Continue daily medication management with Keppra 750 mg twice daily. Hypertension -Monitor vital signs and continue daily medication regimen. Rheumatoid arthritis -Symptomatic care and pain management. CODE STATUS: Full code DVT prophylaxis: Heparin Discussed with: Patient and RN Anticipated discharge date: Clinical course to determine Anticipated discharge place: SNF versus home with palliative care as discussed with patient
--- NOTE | 2021-05-25 13:36 | P.PN ---
Progress Note - Text Progress Note Date: 05/25/21 I discussed the patient's overall medical condition today with patient at bedside for 20 minutes. We reviewed her serious medical condition of COPD with chronic respiratory failure. I discussed with patient that in light of serious underlying lung disease and multiple recurrent hospitalizations, as well as her other co-morbidities including anemia, seizure disorder, hypertension, and SOCRATES, patient is a candidate for hospice care at home as well as palliative care. However, patient has indicated to me that she is still hopeful that she may receive a lung transplant if she goes to pulmonary rehab, but could not inform me which doctors in the [facility] she follows for her transplant work up. We did discuss that the likelihood of surviving to lung transplant is low if it is even possible at all given her severe lung disease, but I do not have the records from her transplant evaluation to guide her further in this. For now, my understanding from our conversation is that she is still hopeful for treatment of underlying COPD via lung transplant, and therefore, she is not interested in hospice. However, we did discuss that she would be a good candidate for palliative care, and would like to spend some time to think about this and will address this with me tomorrow.
--- NOTE | 2021-05-25 15:44 | P.CNPUL ---
History of Present Illness Consult date: 05/25/21 Reason for consult: COPD History of present illness: This is a 66-year-old female patient with known history of chronic hypoxic respiratory failure and COPD who was seeking lung transportation and she was activated on the transplant list in late on deactivated because of medical problems and comorbidities. At the same time at ages becoming progressively more advanced to be active on the transplant list. Her FEV1 is no other of 27% of predicted and she is on home oxygen. She has been maintained on a combination of Perforomist and Pulmicort neb last 2 minutes twice a day, and she takes Yupelri nebulized treatments once a day around the clock in addition to return about treatments on an as needed basis. She came into the hospital on 0 05/22/2021 4 generalized weakness. Note that she was having some muscle weakness and she was unable to move around and ambulate and she was feeling weak and she was collapsing on the ground and she denies having any respiratory difficulties. She denies having any loss of consciousness. No focal neurological deficits and no seizure activity. She has had previous workup including an MRI of the br ain and EEG both were negative and this was on prior admissions. Her speech is within normal limits. Mentation is within normal limits. Chest x-ray shows COPD without evidence of any pneumonia. In fact her COPD is currently inactive in stable and currently is at baseline. He had a time of admission showed no evidence of any infection. No evidence of any fever. No chills. No electrolytes disturbances. Blood sugars up to 27. Troponins are negative. Pro-calcitonin is at 0.09. White cell count was at 15.9 from this morning with a hemoglobin of 9.8. No evidence of any GI bleeding. Review of Systems Constitutional: Reports chronic pain, Reports fatigue, Reports malaise, Reports weakness Ears, nose, mouth and throat: Reports as per HPI Cardiovascular: Reports decreased exercise tolerance, Reports dyspnea on exertion, Reports shortness of breath Respiratory: Reports dyspnea, Reports home oxygen, Reports respiratory infections, Reports sleep apnea Gastrointestinal: Reports as per HPI Genitourinary: Reports as per HPI Musculoskeletal: Reports atrophy, Reports gait dysfunction, Reports morning stiffness, Reports muscle cramps, Reports muscle weakness Integumentary: Reports as per HPI Neurological: Reports gait dysfunction, Reports weakness Psychiatric: Reports depression Endocrine: Reports as per HPI Hematologic/Lymphatic: Reports as per HPI Allergic/Immunologic: Reports as per HPI Past Medical History Past Medical History: Cancer, COPD, Deep Vein Thrombosis (DVT), Hypertension, Pneumonia, Rheumatoid Arthritis (RA) Additional Past Medical History / Comment(s): hearing difficulty currently, colitis, osteopenia, hx cancer of appendix, uses oxygen 3L continuous. chronic back pain, restless leg, COPD. 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 Colonoscopy 2016. pain procedure at [facility] with Dr Ty. TAD with unilateral oophorectomy 1983. Partial vulvectomy in 2000. Past Anesthesia/Blood Transfusion Reactions: No Reported Reaction Additional Past Anesthesia/Blood Transfusion Reaction / Comment(s): states is not supposed to have general anesthesia R/T awaiting lung transplant Past Psychological History: ADD/ADHD, Anxiety Additional Psychological History / Comment(s): . Smoking Status: Former smoker Past Alcohol Use History: None Reported Additional Past Alcohol Use History / Comment(s): Pt. states she quit smoking in 1999. smoked 1-1 1/2 PPD, started smoking age 13. Past Drug Use History: None Reported Additional Drug Use History / Comment(s): Quit using Marijuana 04/2016. - Past Family History Father Family Medical History: Cancer, COPD Additional Family Medical History / Comment(s): COLON cancer Mother Family Medical History: Cancer Additional Family Medical History / Comment(s): ESOPHAGUS cancer Sister(s) Family Medical History: Cancer Additional Family Medical History / Comment(s): CERVICAL cancer Medications and Allergies Home Medications Medication Instructions Recorded Confirmed Type rOPINIRole HCL [Requip] 0.5 mg PO HS 03/24/20 05/22/21 History Cholecalciferol [Vitamin D3 (25 25 mcg PO DAILY 04/08/20 05/22/21 History Mcg = 1000 Iu)] Magnesium Oxide [Mag-Ox] 400 mg PO DAILY 09/15/20 05/22/21 History Melatonin 3 mg PO HS PRN 10/11/20 05/22/21 History Acetaminophen Tab [Tylenol] 650 mg PO Q4H PRN 12/30/20 05/22/21 History Fluticasone Nasal [place] [Flonase 1 spr EA NOSTRIL DAILY 12/30/20 05/22/21 History Nasal [place]] Multivitamins, Thera [Multivitamin 1 tab PO DAILY 12/30/20 05/22/21 History (formulary)] Pantoprazole Sodium [Protonix] 40 mg PO DAILY 12/30/20 05/22/21 History Theophylline 24 Hour [Sekou-24] 400 mg PO HS 12/30/20 05/22/21 History Budesonide [Pulmicort] 1 mg INHALATION RT-BID 01/15/21 05/22/21 History DULoxetine HCL [Cymbalta] 30 mg PO DAILY 01/15/21 05/22/21 History Verapamil [Isoptin] 80 mg PO AC-TID 01/15/21 05/22/21 History Furosemide [Lasix] 40 mg PO BID 02/19/21 05/22/21 History Montelukast [Singulair] 10 mg PO HS 02/19/21 05/22/21 History levETIRAcetam [Keppra] 750 mg PO BID 02/19/21 05/22/21 History Albuterol Inhaler [Ventolin Hfa 2 puff INHALATION RT-QID puff 02/25/21 05/22/21 Rx Inhaler] Psyllium [place] 100% [Metamucil 6 gm PO BID #1 packet 02/25/21 05/22/21 Rx Packet] Loratadine [Claritin] 10 mg PO DAILY 04/24/21 05/22/21 History Potassium Chloride ER [K-Dur 20] 40 meq PO DAILY 04/24/21 05/22/21 History HYDROcodone/APAP 10-325MG [[place] 1 tab PO Q6H PRN 05/22/21 05/22/21 History 10-325] Ipratropium-Albuterol Nebulize 3 ml INHALATION RT-QID PRN 05/22/21 05/22/21 History [Duoneb 0.5 mg-3 mg/3 ml Soln] Lidocaine 5% Patch [Lidoderm 5% 1 patch TOPICAL DAILY PRN 05/22/21 05/22/21 History Patch] polyethylene glycoL 3350 [Miralax] 17 gm PO DAILY PRN 05/22/21 05/22/21 History predniSONE 10 mg PO DAILY 05/22/21 05/22/21 History Allergies Allergy/AdvReac Type Severity Reaction Status Date / Time infliximab [From Remicade] Allergy Dyspnea/HIV Verified 05/22/21 17:07 ES propoxyphene [From Darvon] Allergy Rash/Hives Verified 05/22/21 17:07 adhesive tape AdvReac "is hard Verified 05/22/21 17:07 on skin" Physical Exam Vitals: Vital Signs Temp Pulse Pulse Resp BP Pulse Ox 05/25/21 14:00 98.3 F 92 18 150/75 97 05/25/21 12:04 105 H 05/25/21 11:54 104 H 05/25/21 08:38 75 05/25/21 08:21 106 H 05/25/21 07:41 98.1 F 77 18 177/84 98 05/25/21 02:16 97.3 F L 90 18 105/74 99 05/24/21 20:40 90 05/24/21 20:31 85 100 05/24/21 19:08 97.3 F L 80 18 154/70 97 Intake and Output 05/25/21 05/25/21 05/25/21 06:59 14:59 22:59 Other: Voiding Method Bedside Commode # Voids 1 Patient is currently awake , and the patient is not having any signs of respiratory distress Head exam was generally normal. There was no scleral icterus or corneal arcus. Mucous membranes were moist. HEENT examination is grossly unremarkable. Mucous membranes are moist. No oral lesions. Neck supple. Full range of motion. No adenopathy thyromegaly or neck vein distention. Cardiovascular examination reveals regular rhythm rate. S1-S2 normal. No S3 or S4. No discernible murmur noted. Heart sounds are distant. . Lungs reveal bilateral coarse rhonchi. Bibasilar crackles appreciated. Mild expiratory wheezes are noted. Breath sounds are equal bilaterally but severely diminished throughout. Abdomen soft bowel sounds are heard. No masses or tenderness. Extremities are intact. No cyanosis clubbing and there is trace edema lower extremities bilaterally. Skin is without rash or lesion. Neurologic examination is brief but nonfocal. The patient is moving all 4 extremities to command. She is weak. She is able to follow some simple commands. Positive cough. Positive gag. The pupils equal and reactive to light. No focal neurological deficits for now. No agitation. Results - Laboratory Findings CBC and BMP: 05/24/21 07:28 05/25/21 05:15 ABG WBC 15.9 k/uL (3.8-10.6) H 05/24/21 07:28 RBC 3.79 m/uL (3.80-5.40) L 05/24/21 07:28 Hgb 9.8 gm/dL (11.4-16.0) L D 05/24/21 07:28 Hct 32.1 % (34.0-46.0) L 05/24/21 07:28 MCV 84.7 fL (80.0-100.0) 05/24/21 07: MCH 25.9 pg (25.0-35.0) 05/24/21 07: MCHC 30.6 g/dL (31.0-37.0) L 05/24/21 07:28 RDW 17.6 % (11.5-15.5) H 05/24/21 07:28 Plt Count 342 k/uL (150-450) 05/24/21 07:28 MPV 7.6 05/24/21 07:28 Immature Gran % (Auto) 0.8 % 05/23/21 06:37 Absolute Nucleated RBC 0 X 10*3/uL (0.00-0.00) 05/23/21 06:37 Neutrophils % 95.3 % 05/23/21 06:37 Lymphocytes % 3.1 % 05/23/21 06:37 Monocytes % 0.7 % 05/23/21 06:37 Eosinophils % 0 % 05/23/21 06:37 Basophils % 0.1 % 05/23/21 06:37 Immature Gran # 0.12 X 10*3/uL (0.00-0.04) H 05/23/21 06:37 Neutrophils # 14.72 X 10*3/uL (1.80-7.70) H 05/23/21 06:37 Lymphocytes # 0.48 X 10*3/uL (0.90-5.00) L 05/23/21 06:37 Monocytes # 0.11 X 10*3/uL (0.20-1.00) L 05/23/21 06:37 Eosinophils # 0 X 10*3/uL (0.04-0.35) L 05/23/21 06:37 Basophils # 0.01 X 10*3/uL (0.00-0.10) 05/23/21 06:37 NRBC/100 WBC Diff 0 /100 WBCS (0.0-0.0) 05/23/21 06:37 Hypochromasia Slight 05/24/21 07:28 Anisocytosis Slight 05/24/21 07:28 PT 9.3 sec (9.0-12.0) 05/22/21 15:19 INR 0.8 (<1.2) 05/22/21 15:19 APTT 21.2 sec (22.0-30.0) L 05/22/21 15:19 VBG pH 7.38 (7.31-7.41) 05/22/21 19:35 VBG pCO2 53 mmHg (37-51) H 05/22/21 19:35 VBG HCO3 31 mmol/L (24-28) H 05/22/21 19:35 Sodium 138 mmol/L (137-145) 05/24/21 07:28 Potassium 4.0 mmol/L (3.5-5.1) 05/24/21 07:28 Chloride 99 mmol/L (98-107) 05/24/21 07:28 Carbon Dioxide 37 mmol/L (22-30) H 05/24/21 07:28 Anion Gap 2 mmol/L 05/24/21 07:28 BUN 20 mg/dL (7-17) H 05/24/21 07:28 Creatinine 0.63 mg/dL (0.52-1.04) 05/25/21 05:15 Est GFR (CKD-EPI)AfAm >90 (>60 ml/min/1.73 sqM) 05/25/21 05:15 Est GFR (CKD-EPI)NonAf >90 (>60 ml/min/1.73 sqM) 05/25/21 05:15 BUN/Creatinine Ratio 24.29 Ratio (12.00-20.00) H 05/23/21 06:37 Glucose 132 mg/dL (74-99) H 05/24/21 07:28 POC Glucose (mg/dL) 227 mg/dL (75-99) H 05/25/21 11:17 POC Glu [place] [employer] ID Pushpa Galvan 05/25/21 11:17 Plasma Lactic Acid [place] 1.9 mmol/L (0.7-2.0) 05/22/21 15:19 Calcium 9.2 mg/dL (8.4-10.2) 05/24/21 07:28 Phosphorus 4.2 mg/dL (2.4-5.1) 05/23/21 06:37 Magnesium 2.4 mg/dL (1.5-2.4) 05/23/21 06:37 Total Bilirubin 0.3 mg/dL (0.3-1.2) 05/23/21 06:37 AST 10 U/L (13-35) L 05/23/21 06:37 ALT 12 U/L (8-44) 05/23/21 06:37 Alkaline Phosphatase 100 U/L (41-126) 05/23/21 06:37 Troponin I <0.012 ng/mL (0.000-0.034) 05/22/21 15:19 Total Protein 5.8 g/dL (6.2-8.2) L 05/23/21 06:37 Albumin 3.80 g/dL (3.80-4.90) 05/23/21 06:37 Globulin 2.0 g/dL (1.6-3.3) 05/23/21 06:37 Albumin/Globulin Ratio 1.90 g/dL (1.60-3.17) 05/23/21 06:37 Procalcitonin 0.09 ng/mL (0.02-0.09) 05/23/21 06:37 Urine Color Yellow 05/22/21 15:19 Urine Appearance Clear (Clear) 05/22/21 15:19 Urine pH 6.5 (5.0-8.0) 05/22/21 15:19 Ur Specific [place] 1.021 (1.001-1.035) 05/22/21 15:19 Urine Protein Trace (Negative) H 05/22/21 15:19 Urine Glucose (UA) Negative (Negative) 05/22/21 15:19 Urine Ketones Negative (Negative) 05/22/21 15:19 Urine Blood Small (Negative) H 05/22/21 15:19 Urine Nitrite Negative (Negative) 05/22/21 15:19 Urine Bilirubin Negative (Negative) 05/22/21 15:19 Urine Urobilinogen <2.0 mg/dL (<2.0) 05/22/21 15:19 Ur Leukocyte Esterase Moderate (Negative) H 05/22/21 15:19 Urine RBC 9 /hpf (0-5) H 05/22/21 15:19 Urine WBC 5 /hpf (0-5) 05/22/21 15:19 Ur Squamous Epith Cells 2 /hpf (0-4) 05/22/21 15:19 Hyaline Casts 1 /lpf (0-2) 05/22/21 15:19 Urine Mucus Rare /hpf (None) H 05/22/21 15:19 PT/INR, D-dimer PT 9.3 sec (9.0-12.0) 05/22/21 15:19 INR 0.8 (<1.2) 05/22/21 15:19 Abnormal lab findings: Abnormal Labs 05/22/21 05/22/21 05/22/21 15:19 15:19 15:19 WBC 22.1 H RBC Hgb Hct MCH MCHC RDW 17.0 H Immature Gran # Neutrophils # 20.3 H Lymphocytes # 0.8 L Monocytes # Eosinophils # APTT 21.2 L VBG pCO2 VBG HCO3 Sodium Chloride Carbon Dioxide BUN BUN/Creatinine Ratio Glucose POC Glucose (mg/dL) AST Total Protein Urine Protein Trace H Urine Blood Small H Ur Leukocyte Esterase Moderate H Urine RBC 9 H Urine Mucus Rare H 05/22/21 05/22/21 05/22/21 15:19 19:35 20:39 WBC RBC Hgb Hct MCH MCHC RDW Immature Gran # Neutrophils # Lymphocytes # Monocytes # Eosinophils # APTT VBG pCO2 53 H VBG HCO3 31 H Sodium 133 L Chloride 93 L Carbon Dioxide 34 H BUN BUN/Creatinine Ratio Glucose POC Glucose (mg/dL) 111 H AST Total Protein Urine Protein Urine Blood Ur Leukocyte Esterase Urine RBC Urine Mucus 05/23/21 05/23/21 05/23/21 06:37 06:37 06:58 WBC 15.44 H RBC 3.95 L Hgb 10.0 L Hct 34.2 L MCH 25.3 L MCHC 29.2 L RDW 17.4 H Immature Gran # 0.12 H Neutrophils # 14.72 H Lymphocytes # 0.48 L Monocytes # 0.11 L Eosinophils # 0 L APTT VBG pCO2 VBG HCO3 Sodium Chloride Carbon Dioxide 32.0 H BUN BUN/Creatinine Ratio 24.29 H Glucose 111 H POC Glucose (mg/dL) 120 H AST 10 L Total Protein 5.8 L Urine Protein Urine Blood Ur Leukocyte Esterase Urine RBC Urine Mucus 05/23/21 05/23/21 05/23/21 11:35 16:32 20:17 WBC RBC Hgb Hct MCH MCHC RDW Immature Gran # Neutrophils # Lymphocytes # Monocytes # Eosinophils # APTT VBG pCO2 VBG HCO3 Sodium Chloride Carbon Dioxide BUN BUN/Creatinine Ratio Glucose POC Glucose (mg/dL) 220 H 136 H 232 H AST Total Protein Urine Protein Urine Blood Ur Leukocyte Esterase Urine RBC Urine Mucus 05/24/21 05/24/21 05/24/21 06:41 07:28 07:28 WBC 15.9 H RBC 3.79 L Hgb 9.8 L D Hct 32.1 L MCH MCHC 30.6 L RDW 17.6 H Immature Gran # Neutrophils # Lymphocytes # Monocytes # Eosinophils # APTT VBG pCO2 VBG HCO3 Sodium Chloride Carbon Dioxide 37 H BUN 20 H BUN/Creatinine Ratio Glucose 132 H POC Glucose (mg/dL) 139 H AST Total Protein Urine Protein Urine Blood Ur Leukocyte Esterase Urine RBC Urine Mucus 05/24/21 05/24/21 05/24/21 11:16 16:27 20:39 WBC RBC Hgb Hct MCH MCHC RDW Immature Gran # Neutrophils # Lymphocytes # Monocytes # Eosinophils # APTT VBG pCO2 VBG HCO3 Sodium Chloride Carbon Dioxide BUN BUN/Creatinine Ratio Glucose POC Glucose (mg/dL) 158 H 154 H 172 H AST Total Protein Urine Protein Urine Blood Ur Leukocyte Esterase Urine RBC Urine Mucus 05/25/21 05/25/21 07:10 11:17 WBC RBC Hgb Hct MCH MCHC RDW Immature Gran # Neutrophils # Lymphocytes # Monocytes # Eosinophils # APTT VBG pCO2 VBG HCO3 Sodium Chloride Carbon Dioxide BUN BUN/Creatinine Ratio Glucose POC Glucose (mg/dL) 129 H 227 H AST Total Protein Urine Protein Urine Blood Ur Leukocyte Esterase Urine RBC Urine Mucus Assessment and Plan Plan: 1 COPD, advanced with chronic hypoxic respiratory failure. No signs of any acute decompensation. Chest x-ray stable. Pro-calcitonin level was nonelevated. No signs of an acute bronchospasm wheezing. No signs of any pneumonia or tracheal bronchitis. Patient is demented on a combination of Yupelri Perforomist and Pulmicort neb last treatment on outpatient basis in molly tion to albuterol nebulized treatments. She was seeking lung transportation. Currently she is deactivated from the list due to her age and comorbidities. She has had multiple hospitalizations in the past for COPD exacerbation. She was also hospitalized for Covid 19 related pneumonia from which the patient recovered. She is weak. She will benefit from pulmonary rehabilitation. Not a candidate for hospice as such. 2 history of seizures currently on Keppra 3 history of Covid 19 related pneumonia, recovered 3 severe COPD with chronic hypoxic and hypercapnic respiratory failure typically on oxygen 3 history of a nasal cannula 4 History of deep venous thrombosis. 5 History of hypertension. 6 History of rheumatoid arthritis. 7 History of colitis. 8 Osteopenia/osteoporosis. 9 Chronic back pain. 10 History of restless leg syndrome. 11 History of vulvar cancer. 12 Previous history of bowel resection. 13 Multiple other medical problems and comorbidities. 14 previous history of urine checked infection with MRSA and pseudomonas from February 2021, treated Plan The patient can be discharged home with the next 24 hours. Not a hospice candidate.. She will need aggressive pulmonary rehabilitation. She hasn't deactivated from the transplant list due to comorbidities and age. She was also getting debilitated posterior COVID-19 infection and she would require aggressive rehabilitation prior to being even considered for transplantation. Nevertheless, despite this, not a hospice candidate.. Discharge this patient home within the next 24 hours. I do not really see the need for systemic steroids. Her combination of treatment should be continued with a combination of Perforomist and Pulmicort and Yupelri nebulized treatments in addition to albuterol nebulized treatment [id number] as needed and oxygen 3 L per minute nasal cannula in addition to a noninvasive positive pressure ventilation that she uses overnight. She is also on theophylline on outpatient basis for milligrams at bedtime. No seizure activity at least on clinical grounds. She is still on Keppra. All medications can be ordered resume.
--- NOTE | 2021-05-25 16:19 | CDI ---
Documentation Clarification Form Date: 05/25/2021 03:49:08 PM From: Akua Reeder RN, CCDS Phone: [phone] Admit Date: 05/24/2021 08:06:00 AM Patient Name: Estelle Mohr Visit Number: [id number] Discharge Date: ATTENTION: The Clinical Documentation Specialists (CDI) and [facility] Coding Staff appreciate your assistance in clarifying documentation. Please respond to the clarification below the line at the bottom and electronically sign. The CDI & [facility] Coding staff will review the response and follow-up if needed. Please note: Queries are made part of the Legal Health Record. If you have any questions, please contact the author of this message via ITS. Dr. Frank Melvin The patients principal diagnosis the diagnosis that was chiefly responsible for the admission - has not been clearly identified and clarification is requested. The patient presented with the following; Weakness, syncope with dizziness. ED evaluation indicate pneumonia. H/P 05/23 has hospital acquired pneumonia and UTI. 05/25 attending progress note: There is concerns for bacterial tracheobronchitis vs advancing end-stage COPD History/Risk factors: Advanced end-stage COPD on home O2 3/L, Chronic hypoxic respiratory failure Clinical Indicators: 66-year-old female who present to hospital on with complaint of failure to thrive/increased fatigue after being discharged from rehab. 05/22 Lab findings: WBC 15.4 05/22 CXR: minimal bilateral infiltrates that are improved compared to old exam. There are some mild osteoporotic compression fractures in the mid thoracic spine. 05/22 Vital Signs: 129/73 94 16 98 98 % RA 05/24 Vital signs: 143/70 92 18 98.2 99 % 3/L NC Treatment: Vancomycin 1250 MG IVPB Once then Q12 hrs 05/23 (DC) Solu-Medrol 60 MG IV Q8 (titrate per orders) Zosyn 3.375 MG IVPB Q 8 HRS 05/22-05/23 Symbicort BID as needed nebulizer treatments for shortness of breath PT/OT Consult Maintain SpO2 equal to or greater than 90 % Viibramycin 100 MG PO BID 05/24 In your professional opinion, can you please clarify which diagnosis, after study, was the reason chiefly responsible for the admission? [ ] Pneumonia (specify type: gram negative other) [ ] Acute tracheobronchitis with COPD with exacerbation [ ] Acute tracheobronchitis with COPD without exacerbation [ ] Other, please specify [ ] Unable to determine (Template Last Revised: December 2020) Acute tracheobronchitis with COPD exacerbation MTDD
[2021-05-25 16:23] LABS: Glucose,Whole Blood 149 mg/dL (75-99)
[2021-05-25 20:51] LABS: Glucose,Whole Blood 167 mg/dL (75-99)
[2021-05-25] MEDS: THEOPHYLLINE 24 HOUR 400 MG CAP.ER.24H PO SCH (21:19)
[2021-05-25] MEDS: MONTELUKAST 10 MG TAB PO SCH (21:19)
[2021-05-25] MEDS: HYDROcodone/APAP 10-325MG 1 EACH TAB PO PRN (21:20)
[2021-05-25] MEDS: MELATONIN 3 MG TABLET PO PRN (23:07)
[2021-05-25] MEDS ORDERED: ACETAMINOPHEN TAB 325 MG TAB ONE (23:59)
[2021-05-25] MEDS ORDERED: HEPARIN SODIUM,PORCINE/PF 5,000 UNIT/0.5 ML SYRINGE SQ ONE (23:59)
[2021-05-26 06:49] LABS: Glucose,Whole Blood 124 mg/dL (75-99)
[2021-05-26] MEDS: INSULIN ASPART (NovoLOG) 100 UNIT/ML VIAL SQ SCH (07:32)
[2021-05-26 07:36] VITALS: BP 152/79; RESP 16; TEMP 98.3
[2021-05-26] MEDS: HEPARIN SODIUM,PORCINE/PF 5,000 UNIT/0.5 ML SYRINGE SQ SCH (07:43)
[2021-05-26] MEDS: HYDROcodone/APAP 10-325MG 1 EACH TAB PO PRN (07:44)
[2021-05-26] MEDS: PSYLLIUM HUSK 100% 6 GM PACKET PO SCH (07:44)
[2021-05-26] MEDS: MULTIVITAMINS, THERA 1 EACH TAB PO SCH (07:45)
[2021-05-26] MEDS: PANTOPRAZOLE 40 MG TABLET PO SCH (07:45)
[2021-05-26] MEDS: FUROSEMIDE 40 MG TAB PO SCH (07:45)
[2021-05-26] MEDS: CHOLECALCIFEROL 25 MCG (1000 IU) TABLET PO SCH (07:45)
[2021-05-26] MEDS: POTASSIUM CHLORIDE ER 20 MEQ TAB.ER PO SCH (07:45)
[2021-05-26] MEDS: methylPREDNISolone SOD SUCCI 125 MG/2 ML VIAL IV SCH (07:45)
[2021-05-26] MEDS: ASPIRIN 81 MG PO SCH (07:45)
[2021-05-26] MEDS: MAGNESIUM OXIDE 400 MG TAB PO SCH (07:45)
[2021-05-26] MEDS: LORATADINE 10 MG TAB PO SCH (07:45)
[2021-05-26] MEDS: DULoxetine HCL 30 MG CAPSULE.DR PO SCH (07:46)
[2021-05-26] MEDS: VERAPAMIL 80 MG TAB PO SCH (07:47)
[2021-05-26] MEDS: DOXYCYCLINE 100 MG CAP PO SCH (07:47)
[2021-05-26] MEDS: IPRATROPIUM-ALBUTEROL 3 ML NEB INHALATION PRN (09:08)
[2021-05-26] MEDS: BUDESONIDE 1 MG/2 ML NEBU INHALATION SCH (09:08)
[2021-05-26 09:24] VITALS: PULSE 98
[2021-05-26 11:21] LABS: Glucose,Whole Blood 160 mg/dL (75-99)
--- NOTE | 2021-05-26 13:59 | P.DS ---
Providers Date of admission: 05/24/21 08:06 Expected date of discharge: 05/26/21 Attending physician: Maliha Nath MD Consults: 05/23/21 12:52 Consult Physician Routine Consulting Provider: Angel Cade Consult Reason/Comments: advanced end stage COPD Do you want consulting provider notified?: Yes Primary care physician: Gavin Riggs Hospital Course: Leukocytosis possibly secondary to infectious process vs daily use of steroids with prednisone, improving Concern for bacterial tracheobronchitis vs advancing end-stage COPD Failure to thrive, likely secondary to advancing end-stage COPD Patient was admitted for progressive weakness after discharge from her SNF following her recent hospitalization s/p fall. She was found to have leukocytosis and wheezing on exam with concern for bacterial tracheobronchitis with COPD exacerbation. Chest x-ray showing minimal bilateral infiltrates improved from previous exam with some mild osteoporotic compression fractures in the mid thoracic spine. Procalcitonin negative resulting in 0.09. Vancomycin and Zosyn discontinued and patient placed on doxycycline 100 mg twice a day for treatment of tracheobronchitis for total 7 day course. Consult placed to pulmonology, whose guidance was appreciated. No changes were made at time of discharge to her home COPD management medications. During her visit, I did have a goals of care conversation with her, and patient was amenable to palliative care consult outpatient, but expressed her wish to continue to pursue the possibility of a lung transplant by going to pulmonary rehab, despite the fact that she is not presently a candidate to be on the transplant list. As such, patient is a high readmission risk who likely would qualify for hospice should her goals of care change in future discussions. Obstructive sleep apnea BiPAP dependent nightly -Continuation of BiPAP nightly and as needed Seizure disorder -Seizure precautions and aspiration precautions in place. -Continued daily medication management with Keppra 750 mg twice daily. Hypertension -Monitor vital signs and continue daily medication regimen. Rheumatoid arthritis -Symptomatic care and pain management. I spent 45 minutes coordinating this complex discharge. Assessment: Gen: awake, alert HEENT: normocephalic, atraumatic, impaired hearing acuity, moist mucous membranes Resp: diminished air exchange, end-expiratory wheezing diffusely CVS: good distal perfusion x 4, RRR, no murmurs GI: soft, NTTP, ND : no SPT, no CVAT, patterson catheter not present MSK: no pitting edema, no clubbing Neuro: non-focal, moving all extremities Psych: cooperative, euthymic mood Patient Condition at Discharge: Good Plan - Discharge Summary Discharge Rx Participant: No New Discharge Prescriptions: New Aspirin 81 mg PO DAILY #30 chew Doxycycline [Vibramycin] 100 mg PO BID #6 cap Continue rOPINIRole HCL [Requip] 0.5 mg PO HS Cholecalciferol [Vitamin D3 (25 Mcg = 1000 Iu)] 25 mcg PO DAILY Magnesium Oxide [Mag-Ox] 400 mg PO DAILY Melatonin 3 mg PO HS PRN PRN Reason: Insomnia Acetaminophen Tab [Tylenol] 650 mg PO Q4H PRN PRN Reason: Pain Fluticasone Nasal [place] [Flonase Nasal [place]] 1 spr EA NOSTRIL DAILY Theophylline 24 Hour [Sekou-24] 400 mg PO HS Pantoprazole Sodium [Protonix] 40 mg PO DAILY Multivitamins, Thera [Multivitamin (formulary)] 1 tab PO DAILY DULoxetine HCL [Cymbalta] 30 mg PO DAILY Furosemide [Lasix] 40 mg PO BID Montelukast [Singulair] 10 mg PO HS Loratadine [Claritin] 10 mg PO DAILY HYDROcodone/APAP 10-325MG [[place] 10-325] 1 tab PO Q6H PRN PRN Reason: Pain Verapamil [Isoptin] 80 mg PO AC-TID Budesonide [Pulmicort] 1 mg INHALATION RT-BID levETIRAcetam [Keppra] 750 mg PO BID Psyllium Husk 100% [Metamucil Packet] 6 gm PO BID #1 packet Albuterol Inhaler [Ventolin Hfa Inhaler] 2 puff INHALATION RT-QID puff Potassium Chloride ER [K-Dur 20] 40 meq PO DAILY predniSONE 10 mg PO DAILY polyethylene glycoL 3350 [Miralax] 17 gm PO DAILY PRN PRN Reason: Constipation Ipratropium-Albuterol Nebulize [Duoneb 0.5 mg-3 mg/3 ml Soln] 3 ml INHALATION RT-QID PRN PRN Reason: Shortness Of Breath Lidocaine 5% Patch [Lidoderm 5% Patch] 1 patch TOPICAL DAILY PRN PRN Reason: Lower Back Pain Discharge Medication List rOPINIRole HCL [Requip] 0.5 mg PO HS 03/24/20 [History] Cholecalciferol [Vitamin D3 (25 Mcg = 1000 Iu)] 25 mcg PO DAILY 04/08/20 [History] Magnesium Oxide [Mag-Ox] 400 mg PO DAILY 09/15/20 [History] Melatonin 3 mg PO HS PRN 10/11/20 [History] Acetaminophen Tab [Tylenol] 650 mg PO Q4H PRN 12/30/20 [History] Fluticasone Nasal [place] [Flonase Nasal [place]] 1 spr EA NOSTRIL DAILY 12/30/20 [History] Multivitamins, Thera [Multivitamin (formulary)] 1 tab PO DAILY 12/30/20 [History] Pantoprazole Sodium [Protonix] 40 mg PO DAILY 12/30/20 [History] Theophylline 24 Hour [Sekou-24] 400 mg PO HS 12/30/20 [History] Budesonide [Pulmicort] 1 mg INHALATION RT-BID 01/15/21 [History] DULoxetine HCL [Cymbalta] 30 mg PO DAILY 01/15/21 [History] Verapamil [Isoptin] 80 mg PO AC-TID 01/15/21 [History] Furosemide [Lasix] 40 mg PO BID 02/19/21 [History] Montelukast [Singulair] 10 mg PO HS 02/19/21 [History] levETIRAcetam [Keppra] 750 mg PO BID 02/19/21 [History] Albuterol Inhaler [Ventolin Hfa Inhaler] 2 puff INHALATION RT-QID puff 02/25/21 [Rx] Psyllium Husk 100% [Metamucil Packet] 6 gm PO BID #1 packet 02/25/21 [Rx] Loratadine [Claritin] 10 mg PO DAILY 04/24/21 [History] Potassium Chloride ER [K-Dur 20] 40 meq PO DAILY 04/24/21 [History] HYDROcodone/APAP 10-325MG [[place] 10-325] 1 tab PO Q6H PRN 05/22/21 [History] Ipratropium-Albuterol Nebulize [Duoneb 0.5 mg-3 mg/3 ml Soln] 3 ml INHALATION RT-QID PRN 05/22/21 [History] Lidocaine 5% Patch [Lidoderm 5% Patch] 1 patch TOPICAL DAILY PRN 05/22/21 [History] polyethylene glycoL 3350 [Miralax] 17 gm PO DAILY PRN 05/22/21 [History] predniSONE 10 mg PO DAILY 05/22/21 [History] Aspirin 81 mg PO DAILY #30 chew 05/26/21 [Rx] Doxycycline [Vibramycin] 100 mg PO BID #6 cap 05/26/21 [Rx] Follow up Appointment(s)/Referral(s): [facility], [NON-STAFF] - As Needed Gavin Riggs [Primary Care Provider] - 05/30/21 11:00 am Patient Instructions/Handouts: Acute Bronchitis (GEN), COPD (Chronic Obstructive Pulmonary Disease) (DC) Discharge Disposition: HOME WITH HOME HEALTH SERVICES
== END 2021-05-26 12:41 | disposition home health service (06) | DRG 202 ==
LOC: EC 14:42 → 4SSUR 16:39 → OBSVTOIN 05-24 08:06
PROVIDERS: ADMIT Internal Medicine; ATTEND Internal Medicine
PROC: 5A09457 Assistance with Respiratory Ventilation, 24-96 Consecutive Hours, Continuous Positive Airway Pressure (ICD-10-PCS; principal; 2021-05-22)
DX: J20.9 Acute bronchitis, unspecified (principal); J44.1 Chronic obstructive pulmonary disease with (acute) exacerbation; J96.11 Chronic respiratory failure with hypoxia; N39.0 Urinary tract infection, site not specified; J44.0 Chronic obstructive pulmonary disease with (acute) lower respiratory infection; M85.80 Other specified disorders of bone density and structure, unspecified site; D64.9 Anemia, unspecified; F32.9 Major depressive disorder, single episode, unspecified; F41.9 Anxiety disorder, unspecified; F90.9 Attention-deficit hyperactivity disorder, unspecified type; G25.81 Restless legs syndrome; G40.909 Epilepsy, unspecified, not intractable, without status epilepticus; G47.33 Obstructive sleep apnea (adult) (pediatric); G89.29 Other chronic pain; H91.90 Unspecified hearing loss, unspecified ear; I10 Essential (primary) hypertension; K21.9 Gastro-esophageal reflux disease without esophagitis; M06.9 Rheumatoid arthritis, unspecified; Z96.651 Presence of right artificial knee joint; Z99.81 Dependence on supplemental oxygen; Z76.82 Awaiting organ transplant status; Z79.52 Long term (current) use of systemic steroids; Z79.899 Other long term (current) drug therapy; Z80.0 Family history of malignant neoplasm of digestive organs; Z80.49 Family history of malignant neoplasm of other genital organs; Z82.5 Family history of asthma and other chronic lower respiratory diseases; Z85.44 Personal history of malignant neoplasm of other female genital organs; Z86.16 Personal history of COVID-19; Z87.891 Personal history of nicotine dependence; Z90.710 Acquired absence of both cervix and uterus; Z90.721 Acquired absence of ovaries, unilateral; Z85.038 Personal history of other malignant neoplasm of large intestine
CPT/HCPCS: 36415; 71046; 80048; 80053; 81001; 82565; 82803; 83605; 83735; 84100; 84145; 84484; 85025; 85027; 85610; 85730; 93005; 94640; 94760; 99285

== ENCOUNTER 2021-06-04 09:25 | Inpatient (IN) | payer MEDICARE, OTHER ==
[2021-06-04] MEDS ORDERED: ACETAMINOPHEN TAB 500 MG TAB PO STA (10:17)
[2021-06-04] MEDS ORDERED: SODIUM CHLORIDE 0.9% 500 ML 500 ML IV SCH (10:30)
[2021-06-04] MEDS ORDERED: SODIUM CHLORIDE 0.9% 500 ML 500 ML IV STA (10:32)
--- NOTE | 2021-06-04 10:32 | ED ---
General Adult HPI - General Chief complaint: Fever Stated complaint: Back pain Time Seen by Provider: 06/04/21 09:31 Source: patient, EMS Mode of arrival: EMS - History of Present Illness Initial comments: 66-year-old female with a past medical history of COPD, DVT, hypertension, pneumonia, rheumatoid arthritis presents to the emergency room for a chief complaint of fall. Patient has back pain chronically related to multiple compression fractures. Patient was recently admitted at [facility] last Sunday and discharged home 2-3 days ago. Family did want patient admitted to a rehabilitation center but they were not able to do this. Lastly patient said on the couch and her family member found her assisted off the couch and could not get her up. She was anxious to move her with her recent compression fractures. Upon arrival patient has a fever noted.Patient has no other complaints at this time including shortness of breath, chest pain, abdominal pain, nausea or vomiting, headache, or visual changes. - Related Data Home Medications Medication Instructions Recorded Confirmed rOPINIRole HCL [Requip] 0.5 mg PO HS 03/24/20 06/04/21 Cholecalciferol [Vitamin D3 (25 25 mcg PO DAILY 04/08/20 06/04/21 Mcg = 1000 Iu)] Magnesium Oxide [Mag-Ox] 400 mg PO DAILY 09/15/20 06/04/21 Melatonin 3 mg PO HS PRN 10/11/20 06/04/21 Acetaminophen Tab [Tylenol] 650 mg PO Q4H PRN 12/30/20 06/04/21 Fluticasone Nasal [place] [Flonase 1 spr EA NOSTRIL DAILY 12/30/20 06/04/21 Nasal Kelly] Multivitamins, Thera [Multivitamin 1 tab PO DAILY 12/30/20 06/04/21 (formulary)] Pantoprazole Sodium [Protonix] 40 mg PO DAILY 12/30/20 06/04/21 Theophylline 24 Hour [Sekou-24] 400 mg PO HS 12/30/20 06/04/21 Budesonide [Pulmicort] 1 mg INHALATION RT-BID 01/15/21 06/04/21 DULoxetine HCL [Cymbalta] 30 mg PO DAILY 01/15/21 06/04/21 Verapamil [Isoptin] 80 mg PO AC-TID 01/15/21 06/04/21 Furosemide [Lasix] 40 mg PO BID@0900,1700 02/19/21 06/04/21 Montelukast [Singulair] 10 mg PO HS 02/19/21 06/04/21 levETIRAcetam [Keppra] 750 mg PO BID 02/19/21 06/04/21 Loratadine [Claritin] 10 mg PO DAILY 04/24/21 06/04/21 Potassium Chloride ER [K-Dur 20] 40 meq PO DAILY 04/24/21 06/04/21 HYDROcodone/APAP 10-325MG [[place] 1 tab PO Q6H PRN 05/22/21 06/04/21 10-325] Ipratropium-Albuterol Nebulize 3 ml INHALATION RT-QID PRN 05/22/21 06/04/21 [Duoneb 0.5 mg-3 mg/3 ml Soln] Lidocaine 5% Patch [Lidoderm 5% 1 patch TRANSDERM DAILY PRN 05/22/21 06/04/21 Patch] polyethylene glycoL 3350 [Miralax] 17 gm PO DAILY PRN 05/22/21 06/04/21 predniSONE 10 mg PO DAILY 05/22/21 06/04/21 Previous Rx's Medication Instructions Recorded Albuterol Inhaler [Ventolin Hfa 2 puff INHALATION RT-QID puff 02/25/21 Inhaler] Psyllium Husk 100% [Metamucil 6 gm PO BID #1 packet 02/25/21 Packet] Aspirin 81 mg PO DAILY #30 chew 05/26/21 Allergies Allergy/AdvReac Type Severity Reaction Status Date / Time infliximab [From Remicade] Allergy Dyspnea/HIV Verified 05/22/21 17:07 ES propoxyphene [From Darvon] Allergy Rash/Hives Verified 05/22/21 17:07 adhesive tape AdvReac "is hard Verified 05/22/21 17:07 on skin" Review of Systems ROS Statement: Those systems with pertinent positive or pertinent negative responses have been documented in the HPI. ROS Other: All systems not noted in ROS Statement are negative. Past Medical History Past Medical History: Cancer, COPD, Deep Vein Thrombosis (DVT), Hypertension, Pneumonia, Rheumatoid Arthritis (RA) Additional Past Medical History / Comment(s): hearing difficulty currently, colitis, osteopenia, hx cancer of appendix, uses oxygen 3L continuous. chronic back pain, restless leg, COPD. 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 Colonoscopy 2016. pain procedure at [facility] with Dr Ty. [facility] with unilateral oophorectomy 1983. Partial vulvectomy in 2000. Past Anesthesia/Blood Transfusion Reactions: No Reported Reaction Additional Past Anesthesia/Blood Transfusion Reaction / Comment(s): states is not supposed to have general anesthesia R/T awaiting lung transplant Past Psychological History: ADD/ADHD, Anxiety Smoking Status: Former smoker Past Alcohol Use History: None Reported Past Drug Use History: None Reported - Past Family History Father Family Medical History: Cancer, COPD Additional Family Medical History / Comment(s): COLON cancer Mother Family Medical History: Cancer Additional Family Medical History / Comment(s): ESOPHAGUS cancer Sister(s) Family Medical History: Cancer Additional Family Medical History / Comment(s): CERVICAL cancer General Exam General appearance: alert, in no apparent distress Head exam: Present: atraumatic, normocephalic, normal inspection Eye exam: Present: normal appearance, PERRL, EOMI. Absent: scleral icterus, conjunctival injection, periorbital swelling ENT exam: Present: normal exam, mucous membranes moist Neck exam: Present: normal inspection, full ROM. Absent: tenderness, meningismus, lymphadenopathy Respiratory exam: Present: normal lung sounds bilaterally. Absent: respiratory distress, wheezes, rales, rhonchi, stridor Cardiovascular Exam: Present: tachycardia, normal heart sounds. Absent: systolic murmur, diastolic murmur, rubs, gallop, clicks GI/Abdominal exam: Present: soft, normal bowel sounds. Absent: distended, tenderness, guarding, rebound, rigid Neurological exam: Present: alert Course Vital Signs 06/04/21 06/04/21 06/04/21 09:31 11:37 11:39 Temperature 101.2 F H 100.2 F H Pulse Rate 125 H 114 H Respiratory 18 18 Rate Blood Pressure 148/95 130/76 O2 Sat by Pulse 95 96 Oximetry EKG Findings - EKG Comments: EKG Findings:: Normal sinus rhythm, ventricular rate 79, VA 168, QTc 442 Medical Decision Making - Medical Decision Making There is mild patchy infiltrate in the right perihilar region, pneumonia could be considered. Patient does have compression deformities of T5 and T6 as well as an old compression of T12. Interval compression deformity of L3 with approximate 30% loss of vertebral body height Vitals are stable. Patient is febrile with a temperature of 101 and reflexive tachycardia. 95-96% on her home O2. CBC does show leukocytosis of 16.7 with a left shift. Mild hypokalemia noted, replaced orally. Urinalysis unremarkable. Chest x-ray does show mild patchy infiltrate in the right perihilar region, pneumonia could be considered. This is compared to previous chest x-ray from 05/22/2021 and is new. Patient was started on cefepime and azithromycin. Legionella will be obtained. Patient also has fracture of T12 demonstrated however there is also a compression fracture of L3 and T5-T6. Was unable to get up at home secondary to pain. At this time patient will be admitted for IV antibiotics and possible physical therapy. She does have a TLSO with her. - Lab Data Result diagrams: 06/04/21 10:27 06/04/21 10:27 Lab Results 06/04/21 06/04/21 06/04/21 Range/Units 10:27 10:27 10:27 WBC 16.7 H (3.8-10.6) k/uL RBC 4.50 (3.80-5.40) m/uL Hgb 12.0 (11.4-16.0) gm/dL Hct 37.3 (34.0-46.0) % MCV 82.9 (80.0-100.0) fL MCH 26.7 (25.0-35.0) pg MCHC 32.2 (31.0-37.0) g/dL RDW 17.2 H (11.5-15.5) % Plt Count 341 (150-450) k/uL MPV 8.2 Neutrophils % 85 % Lymphocytes % 7 % Monocytes % 4 % Eosinophils % 3 % Basophils % 1 % Neutrophils # 14.2 H (1.3-7.7) k/uL Lymphocytes # 1.2 (1.0-4.8) k/uL Monocytes # 0.7 (0-1.0) k/uL Eosinophils # 0.4 (0-0.7) k/uL Basophils # 0.1 (0-0.2) k/uL Hypochromasia Slight Anisocytosis Slight PT 9.5 (9.0-12.0) sec INR 0.9 (<1.2) APTT 21.7 L (22.0-30.0) sec Sodium (137-145) mmol/L Potassium (3.5-5.1) mmol/L Chloride (98-107) mmol/L Carbon Dioxide (22-30) mmol/L Anion Gap mmol/L BUN (7-17) mg/dL Creatinine (0.52-1.04) mg/dL Est GFR (CKD-EPI)AfAm (>60 ml/min/1.73 sqM) Est GFR (CKD-EPI)NonAf (>60 ml/min/1.73 sqM) Glucose (74-99) mg/dL Plasma Lactic Acid Osmani (0.7-2.0) mmol/L Calcium (8.4-10.2) mg/dL Total Bilirubin (0.2-1.3) mg/dL AST (14-36) U/L ALT (4-34) U/L Alkaline Phosphatase (38-126) U/L Total Protein (6.3-8.2) g/dL Albumin (3.5-5.0) g/dL Urine Color Yellow Urine Appearance Cloudy H (Clear) Urine pH 7.0 (5.0-8.0) Ur Specific [place] 1.018 (1.001-1.035) Urine Protein 1+ H (Negative) Urine Glucose (UA) Negative (Negative) Urine Ketones 1+ H (Negative) Urine Blood Trace H (Negative) Urine Nitrite Negative (Negative) Urine Bilirubin Negative (Negative) Urine Urobilinogen <2.0 (<2.0) mg/dL Ur Leukocyte Esterase Large H (Negative) Urine RBC 10 H (0-5) /hpf Urine WBC 15 H (0-5) /hpf Ur Squamous Epith Cells 8 H (0-4) /hpf Urine Mucus Rare H (None) /hpf Coronavirus (PCR) (Not Detectd) 06/04/21 06/04/2106/04/21 Range/Units 10:27 10:27 10:27 WBC (3.8-10.6) k/uL RBC (3.80-5.40) m/uL Hgb (11.4-16.0) gm/dL Hct (34.0-46.0) % MCV (80.0-100.0) fL MCH (25.0-35.0) pg MCHC (31.0-37.0) g/dL RDW (11.5-15.5) % Plt Count (150-450) k/uL MPV Neutrophils % % Lymphocytes % % Monocytes % % Eosinophils % % Basophils % % Neutrophils # (1.3-7.7) k/uL Lymphocytes # (1.0-4.8) k/uL Monocytes # (0-1.0) k/uL Eosinophils # (0-0.7) k/uL Basophils # (0-0.2) k/uL Hypochromasia Anisocytosis PT (9.0-12.0) sec INR (<1.2) APTT (22.0-30.0) sec Sodium 135 L (137-145) mmol/L Potassium 3.2 L (3.5-5.1) mmol/L Chloride 89 L (98-107) mmol/L Carbon Dioxide 37 H (22-30) mmol/L Anion Gap 9 mmol/L BUN 14 (7-17) mg/dL Creatinine 0.68 (0.52-1.04) mg/dL Est GFR (CKD-EPI)AfAm >90 (>60 ml/min/1.73 sqM) Est GFR (CKD-EPI)NonAf >90 (>60 ml/min/1.73 sqM) Glucose 107 H (74-99) mg/dL Plasma Lactic Acid Osmani 1.4 (0.7-2.0) mmol/L Calcium 10.0 (8.4-10.2) mg/dL Total Bilirubin 0.5 (0.2-1.3) mg/dL AST 20 (14-36) U/L ALT 15 (4-34) U/L Alkaline Phosphatase 98 (38-126) U/L Total Protein 6.2 L (6.3-8.2) g/dL Albumin 3.7 (3.5-5.0) g/dL Urine Color Urine Appearance (Clear) Urine pH (5.0-8.0) Ur Specific [place]rom[place] (1.001-1.035) Urine Protein (Negative) Urine Glucose (UA) (Negative) Urine Ketones (Negative) Urine Blood (Negative) Urine Nitrite (Negative) Urine Bilirubin (Negative) Urine Urobilinogen (<2.0) mg/dL Ur Leukocyte Esterase (Negative) Urine RBC (0-5) /hpf Urine WBC (0-5) /hpf Ur Squamous Epith Cells (0-4) /hpf Urine Mucus (None) /hpf Coronavirus (PCR) Not Detected (Not Detectd) Disposition Clinical Impression: Fever, Pneumonia, Leukocytosis, Compression fracture Disposition: ADMITTED IP TO THIS HOSP Is patient prescribed a controlled substance at d/c from ED?: No Referrals: Gavin Riggs [Primary Care Provider] - 1-2 days Time of Disposition: 12:43
[2021-06-04 10:54] LABS: Anisocytosis Slight; Basophils # (A) 0.1 k/uL (0-0.2); Basophils % (A) 1 %; Eosinophils # (A) 0.4 k/uL (0-0.7); Eosinophils % (A) 3 %; HCT 37.3 % (34.0-46.0); Hypochromasia Slight; Lymphocytes # (A) 1.2 k/uL (1.0-4.8); Lymphocytes % (A) 7 %; MCH 26.7 pg (25.0-35.0); MCHC 32.2 g/dL (31.0-37.0); MCV 82.9 fL (80.0-100.0); Mean Platelet Volume 8.2; Monocytes # (A) 0.7 k/uL (0-1.0); Monocytes % (A) 4 %; Neutrophils # (A) 14.2 k/uL (1.3-7.7); Neutrophils % (A) 85 %; Platelet Count 341 k/uL (150-450); RDW 17.2 % (11.5-15.5); WBC 16.7 k/uL (3.8-10.6)
[2021-06-04 11:03] LABS: ALT 15 U/L (4-34); AST 20 U/L (14-36); African American GFR (CKD) >90 (>60 ml/min/1.73 sqM); Albumin 3.7 g/dL (3.5-5.0); Alkaline Phosphatase 98 U/L (38-126); Anion Gap 9 mmol/L; Blood Urea Nitrogen 14 mg/dL (7-17); Carbon Dioxide 37 mmol/L (22-30); Chloride 89 mmol/L (98-107); Glucose 107 mg/dL (74-99); Non-African American GFR(CKD) >90 (>60 ml/min/1.73 sqM); Potassium 3.2 mmol/L (3.5-5.1); Sodium 135 mmol/L (137-145); Total Bilirubin 0.5 mg/dL (0.2-1.3); Total Protein 6.2 g/dL (6.3-8.2)
[2021-06-04 11:38] LABS: INR 0.9 (<1.2); Prothrombin Time 9.5 sec (9.0-12.0)
--- NOTE | 2021-06-04 11:40 | XR ---
EXAMINATION TYPE: XR chest 2V DATE OF EXAM: 06/04/2021 COMPARISON: 05/22/2021 INDICATION: Fever TECHNIQUE: Frontal and lateral views of the chest are obtained. FINDINGS: The heart size is normal. The pulmonary vasculature is normal. Some patchy infiltrate is present in the perihilar regions more so on the right. This is nonspecific. Correlate for atelectasis or pneumonia. IMPRESSION: 1. Mild patchy infiltrate in the right perihilar region. Pneumonia could be considered. Atelectasis w ould be within the differential. Follow-up can be performed as clinically indicated.
[2021-06-04 11:41] LABS: Appearance,Urine Cloudy (Clear); Bilirubin,Urine Negative (Negative); Blood,Urine Trace (Negative); Color,Urine Yellow; Glucose,Urine (UA) Negative (Negative); Ketones,Urine 1+ (Negative); Leukocyte Esterase,Urine Large (Negative); Mucus,Urine Rare /hpf; Nitrite,Urine Negative (Negative); Protein,Urine 1+ (Negative); RBC,Urine 10 /hpf (0-5); Specific Gravity,Urine 1.018 (1.001-1.035); Squamous Epithelial Cell,Urine 8 /hpf (0-4); Urobilinogen,Urine <2.0 mg/dL (<2.0); WBC,Urine 15 /hpf (0-5)
--- NOTE | 2021-06-04 11:47 | XR ---
EXAMINATION TYPE: XR lumbar spine 2 or 3V DATE OF EXAM: 06/04/2021 COMPARISON: 04/23/2021 HISTORY: Pain TECHNIQUE: 3 views lumbar spine FINDINGS: There is evidence of interval compression deformity superior endplate of L3. Some increasin g density is along the endplates of L5. Vertebral body height loss is not clearly evident. Spondylosi s is present. Note is made of a T12 compression deformity without significant interval change. Some m ild superior endplate compression of L1 is likely old. Note is made of vascular calcification within the aorta. Disc space narrowing is present L4-5 L5-S1. Pedicles are intact. There are 5 lumbar-type v ertebral bodies. IMPRESSION: 1. Interval compression deformity of L3 with approximately 30% loss of vertebral body height. No pos terior wall displacement is evident. 2. Lower lumbar spine degenerative disc changes
[2021-06-04 11:48] LABS: Partial Thromboplastin Time 21.7 sec (22.0-30.0)
--- NOTE | 2021-06-04 11:49 | XR ---
EXAMINATION TYPE: XR thoracic spine complete DATE OF EXAM: 06/04/2021 COMPARISON: None HISTORY: Recent spine fracture TECHNIQUE: 3 view thoracic spine FINDINGS: There are 12 thoracic type vertebral bodies. Pedicles are intact. Compression deformities are suspected in the region of T5 and T6. Posterior wall displacement is not identified. Compression deformity of T12 is noted. This was evident a prior lumbar spine study and is likely old. Scoliosis is present. No posterior wall displacement is evident. There is some exaggerat ion of thoracic kyphosis in the midthoracic spine. Exaggeration of the cervical lordosis is present. IMPRESSION: 1. Compression deformities in the region of T5 and T6 as well as an old compression of T12.
[2021-06-04] MEDS ORDERED: POTASSIUM CHLORIDE ER 20 MEQ TAB.ER PO STA (12:36)
[2021-06-04] MEDS ORDERED: CEFEPIME 2 GM in SODIUM CHLORIDE 0.9% 100 ML IVPB STA (12:44)
[2021-06-04] MEDS ORDERED: AZITHROMYCIN 500 MG in SODIUM CHLORIDE 0.9% 250 ML IVPB STA (12:44)
[2021-06-04] MEDS ORDERED: PNEUMONIA PROTOCOL UTILIZED 1 EACH MISC PO PRN (12:44)
[2021-06-04] MEDS ORDERED: SODIUM CHLORIDE 0.9% 1,000 ML IV SCH (12:45)
[2021-06-04] MEDS ORDERED: MORPHINE SULFATE 4 MG/ML SYRINGE IVP PRN (12:46)
[2021-06-04] MEDS ORDERED: MORPHINE SULFATE 2 MG/ML SYRINGE IVP PRN (15:35)
[2021-06-04] MEDS ORDERED: polyethylene glycoL 3350 17 GM POWD.PACK PO PRN (15:37)
--- NOTE | 2021-06-04 16:23 | P.HPIM ---
History of Present Illness H&P Date: 06/04/21 Chief Complaint: Back pain This is a 66-year-old female with very complex past medical history noted below who presented to the emergency room with back pain. Patient is a very poor historian and said that her back pain is being getting progressively worse. She was discharged from the hospital only a few days ago. She said that she has been almost bedbound at home secondary to pain. Apparently her family refused for her to go to rehab during last admission. Patient said that she had a fall couple of weeks ago. She described her pain is very severe and mostly in the mid back area and lumbar area. She denies any radiation. No numbness or tingling anywhere. No urinary incontinence. Patient was evaluated in the ER and was found to be septic. She had a high-grade fever. Her urinalysis was positive but was also contaminated. Chest x-ray showed possible pneumonia. Patient was admitted to the hospital for further management. Patient herself denies any shortness of breath or cough. No flulike symptoms. No urinary frequency Review of Systems Review of system: 14 points review of systems were obtained and were negative except to what were mentioned in the HPI. Past Medical History Past Medical History: Cancer, COPD, Deep Vein Thrombosis (DVT), Hypertension, Pneumonia, Rheumatoid Arthritis (RA) Additional Past Medical History / Comment(s): hearing difficulty currently, colitis, osteopenia, hx cancer of appendix, uses oxygen 3L continuous. chronic back pain, restless leg, COPD. 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 Colonoscopy 2017. pain procedure at [facility] with Dr Ty. [facility] with unilateral oophorectomy 1983. Partial vulvectomy in 2000. Past Anesthesia/Blood Transfusion Reactions: No Reported Reaction Additional Past Anesthesia/Blood Transfusion Reaction / Comment(s): states is not supposed to have general anesthesia R/T awaiting lung transplant Past Psychological History: ADD/ADHD, Anxiety Additional Psychological History / Comment(s): . Smoking Status: Former smoker Past Alcohol Use History: None Reported Additional Past Alcohol Use History / Comment(s): Pt. states she quit smoking in 1999. smoked 1-1 1/2 PPD, started smoking age 13. Past Drug Use History: None Reported Additional Drug Use History / Comment(s): Quit using Marijuana 04/2016. - Past Family History Father Family Medical History: Cancer, COPD Additional Family Medical History / Comment(s): COLON cancer Mother Family Medical History: Cancer Additional Family Medical History / Comment(s): ESOPHAGUS cancer Sister(s) Family Medical History: Cancer Additional Family Medical History / Comment(s): CERVICAL cancer Medications and Allergies Home Medications Medication Instructions Recorded Confirmed Type rOPINIRole HCL [Requip] 0.5 mg PO HS 03/24/20 06/04/21 History Cholecalciferol [Vitamin D3 (25 25 mcg PO DAILY 04/08/20 06/04/21 History Mcg = 1000 Iu)] Magnesium Oxide [Mag-Ox] 400 mg PO DAILY 09/15/20 06/04/21 History Melatonin 3 mg PO HS PRN 10/11/20 06/04/21 History Acetaminophen Tab [Tylenol] 650 mg PO Q4H PRN 12/30/20 06/04/21 History Fluticasone Nasal [place] [Flonase 1 spr EA NOSTRIL DAILY 12/30/20 06/04/21 History Nasal Anita] Multivitamins, Thera [Multivitamin 1 tab PO DAILY 12/30/20 06/04/21 History (formulary)] Pantoprazole Sodium [Protonix] 40 mg PO DAILY 12/30/20 06/04/21 History Theophylline 24 Hour [Sekou-24] 400 mg PO HS 12/30/20 06/04/21 History Budesonide [Pulmicort] 1 mg INHALATION RT-BID 01/15/21 06/04/21 History DULoxetine HCL [Cymbalta] 30 mg PO DAILY 01/15/21 06/04/21 History Verapamil [Isoptin] 80 mg PO AC-TID 01/15/21 06/04/21 History Furosemide [Lasix] 40 mg PO BID@0900,1700 02/19/21 06/04/21 History Montelukast [Singulair] 10 mg PO HS 02/19/21 06/04/21 History levETIRAcetam [Keppra] 750 mg PO BID 02/19/21 06/04/21 History Albuterol Inhaler [Ventolin Hfa 2 puff INHALATION RT-QID puff 02/25/21 06/04/21 Rx Inhaler] Psyllium Husk 100% [Metamucil 6 gm PO BID #1 packet 02/25/21 06/04/21 Rx Packet] Loratadine [Claritin] 10 mg PO DAILY 04/24/21 06/04/21 History Potassium Chloride ER [K-Dur 20] 40 meq PO DAILY 04/24/21 06/04/21 History HYDROcodone/APAP 10-325MG [[place] 1 tab PO Q6H PRN 05/22/21 06/04/21 History 10-325] Ipratropium-Albuterol Nebulize 3 ml INHALATION RT-QID PRN 05/22/21 06/04/21 Hi story [Duoneb 0.5 mg-3 mg/3 ml Soln] Lidocaine 5% Patch [Lidoderm 5% 1 patch TRANSDERM DAILY PRN 05/22/21 06/04/21 History Patch] polyethylene glycoL 3350 [Miralax] 17 gm PO DAILY PRN 05/22/21 06/04/21 History predniSONE 10 mg PO DAILY 05/22/21 06/04/21 History Aspirin 81 mg PO DAILY #30 chew 05/26/21 06/04/21 Rx Allergies Allergy/AdvReac Type Severity Reaction Status Date / Time infliximab [From Remicade] Allergy Dyspnea/HIV Verified 05/22/21 17:07 ES propoxyphene [From Darvon] Allergy Rash/Hives Verified 05/22/21 17:07 adhesive tape AdvReac "is hard Verified 05/22/21 17:07 on skin" Physical Exam Vitals: Vital Signs Temp Pulse Pulse Resp BP BP Pulse Ox 06/04/21 13:21 99 F 113 H 18 133/66 97 06/04/21 13:11 99.9 F H 104 H 18 132/74 97 06/04/21 11:39 114 H 18 130/76 96 06/04/21 11:37 100.2 F H 06/04/21 09:31 101.2 F H 125 H 18 148/95 95 Intake and Output 08/07/21 08/07/21 08/07/21 06:59 14:59 22:59 Other: Weight 71.214 kg General: The patient is awake and alert, in no distress Eye: there is normal conjunctiva bilaterally. Neck: The neck is supple, there is no JVD. Cardiovascular: Normal S1-S2, no S3-S4, no murmurs. Respiratory: Lungs clear to auscultation bilaterally Gastrointestinal: Abdomen is soft, nontender Musculoskeletal: There is no pedal edema. Neurological:. Speech is normal. Skin: Skin is warm and dry Results CBC & Chem 7: 06/04/21 10:27 06/04/21 10:27 Labs: Abnormal Lab Results - Last 24 Hours (Table) 06/04/21 06/04/21 06/04/21 Range/Units 10:27 10:27 10:27 WBC 16.7 H (3.8-10.6) k/uL RDW 17.2 H (11.5-15.5) % Neutrophils # 14.2 H (1.3-7.7) k/uL APTT 21.7 L (22.0-30.0) sec Sodium (137-145) mmol/L Potassium (3.5-5.1) mmol/L Chloride (98-107) mmol/L Carbon Dioxide (22-30) mmol/L Glucose (74-99) mg/dL Total Protein (6.3-8.2) g/dL Urine Appearance Cloudy H (Clear) Urine Protein 1+ H (Negative) Urine Ketones 1+ H (Negative) Urine Blood Trace H (Negative) Ur Leukocyte Esterase Large H (Negative) Urine RBC 10 H (0-5) /hpf Urine WBC 15 H (0-5) /hpf Ur Squamous Epith Cells 8 H (0-4) /hpf Urine Mucus Rare H (None) /hpf 06/04/21 Range/Units 10:27 WBC (3.8-10.6) k/uL RDW (11.5-15.5) % Neutrophils # (1.3-7.7) k/uL APTT (22.0-30.0) sec Sodium 135 L (137-145) mmol/L Potassium 3.2 L (3.5-5.1) mmol/L Chloride 89 L (98-107) mmol/L Carbon Dioxide 37 H (22-30) mmol/L Glucose 107 H (74-99) mg/dL Total Protein 6.2 L (6.3-8.2) g/dL Urine Appearance (Clear) Urine Protein (Negative) Urine Ketones (Negative) Urine Blood (Negative) Ur Leukocyte Esterase (Negative) Urine RBC (0-5) /hpf Urine WBC (0-5) /hpf Ur Squamous Epith Cells (0-4) /hpf Urine Mucus (None) /hpf Thrombosis Risk Factor Assmnt - Choose All That Apply Any of the Below Risk Factors Present?: Yes Each Factor Represents 1 point: Obesity (BMI >25) Other Risk Factors: Yes Each Risk Factor Represents 2 Points: Age 61-74 years Thrombosis Risk Factor Assessment Total Risk Factor Score: 3 Thrombosis Risk Factor Assessment Level: Moderate Risk Assessment and Plan Assessment: 1. Sepsis without septic shock 2. Suspected pneumonia 3. UTI 4. Acute on chronic low back pain 5. Compression fracture/deformities involving T5, T6, T12, and L3 6. Hypokalemia 7. Advanced stage COPD on chronic daily prednisone 8. Obstructive sleep apnea on BiPAP at night 9. Underlying seizure disorder 10. Hypertension 7. Underlying rheumatoid arthritis Patient was started on broad-spectrum antibiotic with IV cefepime and oral azithromycin. I would obtain pro-calcitonin. Continue aggressive IV fluid hydration with normal saline at 130 mL per hour. Awaiting urine and blood culture. Check bladder scan to rule out urinary retention. Consult orthopedic surgery for further evaluation of acute on chronic low back pain. Pain control as needed.
[2021-06-04] MEDS: SODIUM CHLORIDE 0.9% 1,000 ML IV SCH (17:01)
[2021-06-04] MEDS: VERAPAMIL 80 MG TAB PO SCH (17:01)
[2021-06-04] MEDS: FUROSEMIDE 40 MG TAB PO SCH (17:01)
[2021-06-04] MEDS: HYDROcodone/APAP 10-325MG 1 EACH TAB PO PRN ×2 (17:04→23:37)
[2021-06-04] MEDS: PSYLLIUM HUSK 100% 6 GM PACKET PO SCH (20:46)
[2021-06-04] MEDS: ACETAMINOPHEN TAB 325 MG TAB PO PRN (20:46)
[2021-06-04] MEDS: MONTELUKAST 10 MG TAB PO SCH (20:47)
[2021-06-04] MEDS: IPRATROPIUM-ALBUTEROL 3 ML NEB INHALATION PRN (20:59)
[2021-06-04] MEDS: BUDESONIDE 1 MG/2 ML NEBU INHALATION SCH (21:03)
[2021-06-04] MEDS: MELATONIN 3 MG TABLET PO PRN (22:03)
[2021-06-04] MEDS: THEOPHYLLINE 24 HOUR 400 MG CAP.ER.24H PO SCH (22:03)
[2021-06-04] MEDS: CEFEPIME 2 GM in SODIUM CHLORIDE 0.9% 100 ML IVPB SCH (23:38)
[2021-06-05] MEDS: SODIUM CHLORIDE 0.9% 1,000 ML IV SCH ×3 (00:30→12:50)
[2021-06-05] MEDS: HYDROcodone/APAP 10-325MG 1 EACH TAB PO PRN ×4 (06:27→21:49)
[2021-06-05] MEDS: IPRATROPIUM-ALBUTEROL 3 ML NEB INHALATION PRN ×3 (08:09→21:16)
[2021-06-05] MEDS: BUDESONIDE 1 MG/2 ML NEBU INHALATION SCH ×2 (08:09→21:16)
--- NOTE | 2021-06-05 08:48 | XR ---
EXAMINATION TYPE: XR chest 1V portable DATE OF EXAM: 06/05/2021 COMPARISON: 06/04/2021 INDICATION: Pneumonia TECHNIQUE: Single frontal view of the chest is obtained. FINDINGS: The heart size is normal. The pulmonary vasculature is normal. There is mild infiltrate in the right upper lobe. This is better visualized in the comparison. Mild i nfiltrate may be at the left base. Atelectasis and pneumonia can be considered. IMPRESSION: 1. Mild increasing right upper lobe developing left lower lobe infiltrate. Correlate for atelectasis and pneumonia.
[2021-06-05] MEDS: POTASSIUM CHLORIDE ER 20 MEQ TAB.ER PO SCH (09:29)
[2021-06-05] MEDS: PANTOPRAZOLE 40 MG TABLET PO SCH (09:29)
[2021-06-05] MEDS: MULTIVITAMINS, THERA 1 EACH TAB PO SCH (09:29)
[2021-06-05] MEDS: ASPIRIN 81 MG PO SCH (09:29)
[2021-06-05] MEDS: MAGNESIUM OXIDE 400 MG TAB PO SCH (09:29)
[2021-06-05] MEDS: FUROSEMIDE 40 MG TAB PO SCH ×2 (09:29→17:41)
[2021-06-05] MEDS: PSYLLIUM HUSK 100% 6 GM PACKET PO SCH ×2 (09:29→21:51)
[2021-06-05] MEDS: CHOLECALCIFEROL 25 MCG (1000 IU) TABLET PO SCH (09:29)
[2021-06-05] MEDS: predniSONE 10 MG TAB PO SCH (09:29)
[2021-06-05] MEDS: CEFEPIME 2 GM in SODIUM CHLORIDE 0.9% 100 ML IVPB SCH ×2 (09:29→18:45)
[2021-06-05] MEDS: ACETAMINOPHEN TAB 325 MG TAB PO PRN (09:30)
[2021-06-05] MEDS: VERAPAMIL 80 MG TAB PO SCH ×3 (09:33→17:42)
[2021-06-05] MEDS: DULoxetine HCL 30 MG CAPSULE.DR PO SCH (09:33)
[2021-06-05 09:38] LABS: Basophils # (A) 0.01 X 10*3/uL (0.00-0.10); Basophils % (A) 0.1 %; Eosinophils # (A) 0.57 X 10*3/uL (0.04-0.35); Eosinophils % (A) 4.2 %; HCT 33.9 % (37.2-46.3); HGB 9.9 g/dL (12.0-15.0); Lymphocytes # (A) 1.12 X 10*3/uL (0.90-5.00); Lymphocytes % (A) 8.3 %; MCH 25.1 pg (27.0-32.0); MCHC 29.2 g/dL (32.0-37.0); Mean Platelet Volume 10.3 fL (9.5-12.2); Monocytes # (A) 0.89 X 10*3/uL (0.20-1.00); Monocytes % (A) 6.6 %; Neutrophils # (A) 10.63 X 10*3/uL (1.80-7.70); Neutrophils % (A) 78.6 %; Platelet Count 293 X 10*3/uL (140-440); RBC 3.94 X 10*6/uL (4.10-5.20); RDW 18.6 % (11.5-14.5); WBC 13.52 X 10*3/uL (4.50-10.00)
[2021-06-05 10:05] LABS: African American GFR (CKD) 108.5 (60.0-200.0); Anion Gap 8.1 mmol/L (4.00-12.00); BUN/Creat Ratio 18.33 Ratio (12.00-20.00); Calcium 8.9 mg/dL (8.7-10.3); Carbon Dioxide 35.9 mmol/L (21.6-31.8); Magnesium 1.5 mg/dL (1.5-2.4); Non-African American GFR(CKD) 93.7 (60.0-200.0); Potassium 3.2 mmol/L (3.5-5.5)
[2021-06-05] MEDS: FLUTICASONE 50MCG/SPRAY NASAL 16GM EA NOSTRIL SCH (10:38)
[2021-06-05] MEDS ORDERED: Potassium Replacement Protocol 1 EACH MISC MISCELLANE PRN (11:14)
[2021-06-05] MEDS ORDERED: POTASSIUM CHLORIDE 20 MEQ in WATER FOR INJECTION 1 100ML.BAG IVPB STA (11:28)
--- NOTE | 2021-06-05 11:43 | P.CNOR ---
History of Present Illness - [facility] Consult date: 06/05/21 Consult reason: fracture, low back pain History of present illness: 66-year-old female presented to the emergency department after complaints of low back pain. The patient states that about a week ago to 2 weeks ago she somewhat of a poor historian she had some sort of fall and she has had pain ever since then. She does have a LSO brace that was prescribed to her sounds like by her primary care doctor for what it she describes as a fracture in her back. She states pain in her back is fairly severe she has tried the brace however is not helped her to ambulate she continues to have back pain when she is up and about. She states that she has no pain in her lower extremities no groin pain no peroneal numbness or tingling and no issues with bowel or bladder control. She states in the past that she has had fractures in her back but this seems somewhat different. She denies any other symptoms denies blunt head trauma loss of consciousness with the fall. She does have somewhat of a complex medical h istory. Review of Systems 14 points review of systems completed and as stated in HPI, all other systems reviewed are negative. Past Medical History Past Medical History: Cancer, COPD, Deep Vein Thrombosis (DVT), Hypertension, Pneumonia, Rheumatoid Arthritis (RA) Additional Past Medical History / Comment(s): hearing difficulty currently, colitis, osteopenia, hx cancer of appendix, uses oxygen 3L continuous. chronic back pain, restless leg, COPD. 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 Colonoscopy 2017. pain procedure at [facility] with Dr Ty. [facility] with unilateral oophorectomy 1983. Partial vulvectomy in 2000. Past Anesthesia/Blood Transfusion Reactions: No Reported Reaction Additional Past Anesthesia/Blood Transfusion Reaction / Comm: states is not supp osed to have general anesthesia R/T awaiting lung transplant Past Psychological History: ADD/ADHD, Anxiety Additional Psychological History / Comment(s): . Smoking Status: Former smoker Past Alcohol Use History: None Reported Additional Past Alcohol Use History / Comment(s): Pt. states she quit smoking in 1999. smoked 1-1 1/2 PPD, started smoking age 13. Past Drug Use History: None Reported Additional Drug Use History / Comment(s): Quit using Marijuana 04/2016. - Past Family History Father Family Medical History: Cancer, COPD Additional Family Medical History / Comment(s): COLON cancer Mother Family Medical History: Cancer Additional Family Medical History / Comment(s): ESOPHAGUS cancer Sister(s) Family Medical History: Cancer Additional Family Medical History / Comment(s): CERVICAL cancer Medications and Allergies Home Medications Medication Instructions Recorded Confirmed Type rOPINIRole HCL [Requip] 0.5 mg PO HS 03/24/20 06/04/21 History Cholecalciferol [Vitamin D3 (25 25 mcg PO DAILY 04/08/20 06/04/21 History Mcg = 1000 Iu)] Magnesium Oxide [Mag-Ox] 400 mg PO DAILY 09/15/20 06/04/21 History Melatonin 3 mg PO HS PRN 10/11/20 06/04/21 History Acetaminophen Tab [Tylenol] 650 mg PO Q4H PRN 12/30/20 06/04/21 History Fluticasone Nasal [place] [Flonase 1 spr EA NOSTRIL DAILY 12/30/20 06/04/21 History Nasal [place]] Multivitamins, Thera [Multivitamin 1 tab PO DAILY 12/30/20 06/04/21 History (formulary)] Pantoprazole Sodium [Protonix] 40 mg PO DAILY 12/30/20 06/04/21 History Theophylline 24 Hour [Sekou-24] 400 mg PO HS 12/30/20 06/04/21 History Budesonide [Pulmicort] 1 mg INHALATION RT-BID 01/15/21 06/04/21 History DULoxetine HCL [Cymbalta] 30 mg PO DAILY 01/15/21 06/04/21 History Verapamil [Isoptin] 80 mg PO AC-TID 01/15/21 06/04/21 History Furosemide [Lasix] 40 mg PO BID@0900,1700 02/19/21 06/04/21 History Montelukast [Singulair] 10 mg PO HS 02/19/21 06/04/21 History levETIRAcetam [Keppra] 750 mg PO BID 02/19/21 06/04/21 History Albuterol Inhaler [Ventolin Hfa 2 puff INHALATION RT-QID puff 02/25/21 06/04/21 Rx Inhaler] Psyllium Husk 100% [Metamucil 6 gm PO BID #1 packet 02/25/21 06/04/21 Rx Packet] Loratadine [Claritin] 10 mg PO DAILY 04/24/21 06/04/21 History Potassium Chloride ER [K-Dur 20] 40 meq PO DAILY 04/24/21 06/04/21 History HYDROcodone/APAP 10-325MG [[place] 1 tab PO Q6H PRN 05/22/21 06/04/21 History 10-325] Ipratropium-Albuterol Nebulize 3 ml INHALATION RT-QID PRN 05/22/21 06/04/21 History [Duoneb 0.5 mg-3 mg/3 ml Soln] Lidocaine 5% Patch [Lidoderm 5% 1 patch TRANSDERM DAILY PRN 05/22/21 06/04/21 History Patch] polyethylene glycoL 3350 [Miralax] 17 gm PO DAILY PRN 05/22/21 06/04/21 History predniSONE 10 mg PO DAILY 05/22/21 06/04/21 History Aspirin 81 mg PO DAILY #30 chew 05/26/21 06/04/21 Rx Allergies Allergy/AdvReac Type Severity Reaction Status Date / Time infliximab [From Remicade] Allergy Dyspnea/HIV Verified 05/22/21 17:07 ES propoxyphene [From Darvon] Allergy Rash/Hives Verified 05/22/21 17:07 adhesive tape AdvReac "is hard Verified 05/22/21 17:07 on skin" Physical Examination Osteopathic Statement: *. No significant issues noted on an osteopathic structural exam other than those noted in the History and Physical/Consult. PHYSICAL EXAMINATION: Vitals: Stable at this time General: Awake, alert, appropriate for age, in no acute distress. HEENT: No unusual neck masses around region of lateral neck triangle, thyroid, supraclavicular groove. Extremities: Skin warm and dry without no acute lesions, coloration, temperature, skin intact, no tenderness or erythema. Integument: Hairy patches: Absent Dorsal skin dimples: Absent Cafe au lait spots: Absent Surgical incisions: None Palpation: Please see Pain drawing on Intake sheet for further detail. (Tenderness = T, Nontender = NT, Swelling = S, Ecchymosis = E) Findings on Midline and paraspinal palpation and percussion: Cervical: NT Thoracic: Tenderness to palpation throughout Lumbar: Exquisite tenderness in the midline to palpation as well as paralumbar region. She has tenderness to palpation of the thoracolumbar junction. She has difficulty with rolling herself to the side secondary to exquisite pain Sacral: NT Special findings: Positive ballottement's within the thoracic and lumbar region. POSTURAL and MUSCULO-SKELETAL EVALUATION: Neck ROM: [Unrestricted in six directions] Lumbar ROM: Restricted secondary to pain Shoulder ROM: Symmetric in abduction, ER/IR Hip ROM: Symmetric in abduction, adduction, ER/IR Knee ROM: Symmetric and intact in Flexion / extension Hands: Normal appearing structure L and R Feet: Normal appearing structure L and R VASCULAR STATUS : Wrist Pulses: [2/4 bilateral radial and ulnar] Pedal Pulses: [2/4 bilateral DP and PT] Color: [Normal] Edema: [None] NEUROLOGIC EXAMINATION: Mental Status: Awake and alert, fully oriented, with normal attention, concentration and memory, and fluent, appropriate speech. Cranial Nerves: I: Olfactory not tested. II: Visual acuity normal, no visual field deficit noted with confrontation. III,IV: Normal pupillary reflexes & intact extraocular movements without nystagmus. V,: Intact symmetrical facial sensation. VII: Intact symmetrical facial motor movement VIII: Hearing intact. IX,X: Intact gag, swallow, & normal voice. XI: Sternocleidomastoid, trapezius function intact. XII: Tongue midline with normal movements. Special Tests: L'hermitte's Sign: Absent Spurling'Sign: Absent Bilateral Cubital percussion test: Absent Bilateral Duke-Tinel sign - Carpal region: Absent Bilateral Straight Leg Raising: Absent Bilateral Motor Exam (0-5/5, N/T) STRENGTH UPPER EXTREMITY Shoulder Abd (Not part of ARCHIE Motor score): RIGHT [5] LEFT [5] Elbow Flexors: RIGHT [5] LEFT [5] Elbow Extensor: RIGHT [5] LEFT [5] Wrrist Dorsiflexors: RIGHT [5] LEFT [5] Finger Abductor: RIGHT [5] LEFT [5] Coverage Specialist Rn: RIGHT [5] LEFT [5] LOWER EXTREMITY Hip Flexor (Not part of ARCHIE Motor Score): RIGHT [5] LEFT [5] Knee Flexor: RIGHT [5] LEFT [5] Knee Extensor: RIGHT [5] LEFT [5] Ankle Dorsiflexion: RIGHT [5] LEFT [5] Ankle Plantarflexion: RIGHT [5] LEFT [5] EHL: RIGHT [5] LEFT [5] FHL: RIGHT [5] LEFT [5] She has good strength in her upper and lower extremities and no focal deficits. She is unable to ambulate at this time her sit up at bedside secondary to the pain in her back. REFLEXES Biecp: RIGHT [2] LEFT [2] Tricep: RIGHT [2] LEFT [2] Brachioradialis: RIGHT [2] LEFT [2] Patellar: RIGHT [2] LEFT [2] Achilles: RIGHT [2] LEFT [2] Pathological Reflexes Pearson's: RIGHT [Absent] LEFT [Absent] Babinski: RIGHT [Absent] LEFT [Absent] Clonus: RIGHT [None] LEFT [None] SENSORY Joint Position: [Intact bilaterally] Vibration [Intact bilaterally] Pain and LT sense [Intact C5-T1 and L2-S1] Dermatomal deficit [None] Gait and Functional Evaluation: Ambulatory aids: LSO brace and walker Hand and finger dexterity intact bilaterally[]. Disdiadochokinesis examination negative[] bilaterally. Results X-rays of the thoracic and lumbar spine and reviewed. This demonstrates multiple levels of spondylosis throughout the lumbar spine. There is also what appears to be acute fracture of the L3 vertebral body with endplate settling of approximately 20-30%. It does not appear to extend posteriorly there is no spinous process splaying. There is anterior osteophyte in this area. There is also an endplate settling of L2 which is noted and wedging. There are chronic fractures noted of T12 and T11. There are also multiple different areas within her thoracic spine which demonstrated compression deformities which are indet erminate age. These are around the areas of T5 and T6 as well as T12. Final alignment secondary to patient's age and fractures. No other evidence of instability fracture lesion or dislocation. - Labs Labs: Abnormal Lab Results - Last 24 Hours (Table) 06/04/21 06/04/21 06/04/21 Range/Units 10:27 10:27 10:30 WBC (4.50-10.00) X 10*3/uL RBC (4.10-5.20) X 10*6/uL Hgb (12.0-15.0) g/dL Hct (37.2-46.3) % MCH (27.0-32.0) pg MCHC (32.0-37.0) g/dL RDW (11.5-14.5) % Immature Gran # (0.00-0.04) X 10*3/uL Neutrophils # (1.80-7.70) X 10*3/uL Eosinophils # (0.04-0.35) X 10*3/uL APTT 21.7 L (22.0-30.0) sec Potassium (3.5-5.5) mmol/L Carbon Dioxide (21.6-31.8) mmol/L Procalcitonin 0.20 H (0.02-0.09) ng/mL Urine Appearance Cloudy H (Clear) Urine Protein 1+ H (Negative) Urine Ketones 1+ H (Negative) Urine Blood Trace H (Negative) Ur Leukocyte Esterase Large H (Negative) Urine RBC 10 H (0-5) /hpf Urine WBC 15 H (0-5) /hpf Ur Squamous Epith Cells 8 H (0-4) /hpf Urine Mucus Rare H (None) /hpf 06/05/21 06/05/21 Range/Units 06:18 06:18 WBC 13.52 H (4.50-10.00) X 10*3/uL RBC 3.94 L (4.10-5.20) X 10*6/uL Hgb 9.9 L (12.0-15.0) g/dL Hct 33.9 L (37.2-46.3) % MCH 25.1 L (27.0-32.0) pg MCHC 29.2 L (32.0-37.0) g/dL RDW 18.6 H (11.5-14.5) % Immature Gran # 0.30 H (0.00-0.04) X 10*3/uL Neutrophils # 10.63 H (1.80-7.70) X 10*3/uL Eosinophils # 0.57 H (0.04-0.35) X 10*3/uL APTT (22.0-30.0) sec Potassium 3.2 L (3.5-5.5) mmol/L Carbon Dioxide 35.9 H (21.6-31.8) mmol/L Procalcitonin (0.02-0.09) ng/mL Urine Appearance (Clear) Urine Protein (Negative) Urine Ketones (Negative) Urine Blood (Negative) Ur Leukocyte Esterase (Negative) Urine RBC (0-5) /hpf Urine WBC (0-5) /hpf Ur Squamous Epith Cells (0-4) /hpf Urine Mucus (None) /hpf Microbiology - Last 24 Hours (Table) 06/04/21 10:27 Urine Culture - Preliminary Urine,Voided H & H 06/04/21 06/05/21 Range/Units 10:27 06:18 Hgb 12.0 9.9 L (11.4-16.0) gm/dL Hct 37.3 33.9 L (34.0-46.0) % Coagulation 06/04/21 Range/Units 10:27 INR 0.9 (<1.2) Result Diagrams: 06/05/21 06:18 06/05/21 06:18 Assessment and Plan Assessment: 66-year-old female status post fall from standing L3 vertebral compression fracture suspect acute Chronic T5-T6 and T12 compression fractures Osteoporosis Current UTI POA Multiple medical comorbidities Plan: -Appreciate data warehouse consultant and team management. -Activity: Ambulate QID, OOB all meals, up and about, limit lifting bending twisting to less than 5 lbs. Use walker or cane if needed for stability. -Daily PT/OT, increase ambulation strength and balance. -[Brace when up and about, not needed in bed or chair] -Pain control: We will change her pain regimen to [place] 10 every 4 hours -Meds: [reviewed] -GI ppx: senna, Miralax -DVT PPX: Mechanical -Hygiene: Shower daily. -Computed tomography scan of the thoracic and lumbar spine pending -Encourage IS 10x/hr -Dispo: [Pending] I discussed with the patient her clinical signs and symptoms as well as her imaging. At this time we will obtain CT scans of her thoracic and lumbar spine to better define the bony deformities. I do Chad that the L3 fracture is more acute on chronic however there is more wedging and more settling there was previously and this is likely a reason for her pain. I discussed with her conservative versus surgical measures for this including bracing which she has tried and failed medications which is tried and failed. At this point the patient may be criteria for surgical intervention. Once CT scans are completed we will determine if we need MRI of her lumbar spine and from there will determine a surgical option for her. This would likely be done on Sunday of this week for medical clearance and optimization prior to surgery as well as i maging and preparation. She understood this was comfortable with this. Time with Patient: Greater than 30
[2021-06-05] MEDS ORDERED: POTASSIUM CHLORIDE ER 20 MEQ TAB.ER PO SCH (12:00)
--- NOTE | 2021-06-05 13:50 | P.PN ---
Subjective Progress Note Date: 06/05/21 Patient is doing fairly well today. Her pain is about the same compared to yesterday. She had a low grade fever this morning Objective - Vital Signs Vital signs: Vital Signs Temp 99.0 F 06/05/21 10:34 Pulse 101 H 06/05/21 13:39 Resp 20 06/05/21 07:10 BP 145/69 06/05/21 07:10 Pulse Ox 94 L 06/05/21 08:12 Intake & Output 06/04/21 06/05/21 06/05/21 18:59 06:59 18:59 Intake Total 1400 Output Total 75 Balance 1325 Weight 71.214 kg Intake: Intake, IV Titration 1400 Amount Cefepime 2 gm In Sodium 100 Chloride 0.9% 100 ml @ 25 mls/hr IVPB Q8HR [facility] Rx# :[id number] Sodium Chloride 0.9% 1, 1300 000 ml @ 130 mls/hr IV . Q7H42M [facility] Rx#:[id number] Output: Urine 75 Other: # Voids 2 3 - Exam General: The patient is awake and alert, in no distress Eye: there is normal conjunctiva bilaterally. Neck: The neck is supple, there is no JVD. Cardiovascular: Normal S1-S2, no S3-S4, no murmurs. Respiratory: Lungs clear to auscultation bilaterally Gastrointestinal: Abdomen is soft, nontender Musculoskeletal: There is no pedal edema. Neurological:. Speech is normal. Skin: Skin is warm and dry - Labs CBC & Chem 7: 06/05/21 06:18 06/05/21 06:18 Labs: Abnormal Lab Results - Last 24 Hours (Table) 06/04/21 06/05/21 06/05/21 Range/Units 10:30 06:18 06:18 WBC 13.52 H (4.50-10.00) X 10*3/uL RBC 3.94 L (4.10-5.20) X 10*6/uL Hgb 9.9 L (12.0-15.0) g/dL Hct 33.9 L (37.2-46.3) % MCH 25.1 L (27.0-32.0) pg MCHC 29.2 L (32.0-37.0) g/dL RDW 18.6 H (11.5-14.5) % Immature Gran # 0.30 H (0.00-0.04) X 10*3/uL Neutrophils # 10.63 H (1.80-7.70) X 10*3/uL Eosinophils # 0.57 H (0.04-0.35) X 10*3/uL Potassium 3.2 L (3.5-5.5) mmol/L Carbon Dioxide 35.9 H (21.6-31.8) mmol/L Procalcitonin 0.20 H (0.02-0.09) ng/mL Microbiology - Last 24 Hours (Table) 06/04/21 10:15 Blood Culture - Preliminary Blood No Growth after 24 hours 06/04/21 10:30 Blood Culture - Preliminary Blood No Growth after 24 hours 06/04/21 10:27 Urine Culture - Final Urine,Voided Assessment and Plan Assessment: This is a 66-year-old female with past medical history noted below who presented to the emergency room with acute on chronic back pain. Patient was evaluated in the ER and admitted to the hospital for further management of her medical problems noted below 1. Sepsis without septic shock 2. Healthcare acquired pneumonia, with elevated pro-calcitonin 3. UTI 4. Acute on chronic low back pain 5. Compression fracture/deformities involving T5, T6, T12, and L3: Seen and evaluated by orthopedic. Computed tomography scan ordered for further evaluation. May consider surgical intervention. Pain control as needed. 6. Hypokalemia and hypomagnesemia: Placement ordered 7. Advanced stage COPD on chronic daily prednisone 8. Obstructive sleep apnea on BiPAP at night 9. Underlying seizure disorder 10. Hypertension 11. Underlying rheumatoid arthritis Patient was started on broad-spectrum antibiotic with IV cefepime and oral azithromycin day #2. She received aggressive IV fluid hydration since presentation. Lactic acid is normal. Awaiting urine and blood culture. Bladder scan yesterday showed 297 mL awaiting repeat bladder scan today. Today, I reviewed her medication list and lab work results. Continue current management. Repeat lab work in the morning.
--- NOTE | 2021-06-05 13:58 | CT ---
EXAMINATION TYPE: CT thoracic spine wo con DATE OF EXAM: 06/05/2021 COMPARISON: 06/04/2021 plain film HISTORY: Fracture CT DLP: 796 mGycm Automated exposure control for dose reduction was used. Contrast: None Technique: Axial images 3 mm thick sections. Reconstructed images in the coronal and sagittal planes. FINDINGS: There is a compression deformity at T6. No posterior wall displacement is evident. Approximately 30% loss of vertebral body height is present. There is a severe compression deformity of the superior endplate T7. Approximately 60% loss of mid ve rtebral body height is evident. Less anterior vertebral body height loss is evident. No posterior wal l displacement is evident. There is a minimal superior endplate compression of T8 with 15% loss of vertebral body height. No pos terior wall displacement is evident. There is a compression deformity at T12 with approximately 50% loss of superior vertebral body height . Mild central posterior wall displacement is evident superior endplate estimated at 0.3 cm. IMPRESSION: 1. COMPRESSION DEFORMITIES T6, T7, T8. NO POSTERIOR WALL DISPLACEMENT IS EVIDENT. 2. COMPRESSION DEFORMITY OF T12 WITH APPROXIMATELY 3 MM POSTERIOR SUPERIOR ENDPLATE DISPLACEMENT SPIN AL CANAL. NO SPINAL CANAL STENOSIS IS PRESENT.
--- NOTE | 2021-06-05 14:17 | CT ---
EXAMINATION TYPE: CT lumbar spine wo con DATE OF EXAM: 06/05/2021 COMPARISON: None HISTORY: Fracture CT DLP: 1025 mGycm CONTRAST: None TECHNIQUE: CT of the lumbar spine is performed on a spiral scan at 3 mm thick sections. Reconstructed images are performed in the coronal and sagittal planes. FINDINGS: T12-L1: No focal disc herniation or significant disc bulge is evident. No spinal canal stenosis or neural foraminal stenosis is present. L1-L2: No focal disc herniation or significant disc bulge is evident. No spinal canal stenosis or n eural foraminal stenosis is present. L2: Inferior endplate compression is evident. Milder superior endplate compression is present. No pos terior wall displacement is evident. L2-L3: Disc bulge has anterior thecal sac contact. Superior endplate spurring is present at L3 with a pproximately 0.5 cm posterior wall displacement. AP spinal canal stenosis is not evident. L 3: There is a superior endplate compression deformity. This appears to be acute with cortical disru ption. Some mild soft tissue swelling is adjacent. Posterior wall displacement along the superior end plate is 0.5 cm. AP spinal canal stenosis or is not present. L3-L4: Mild broad-based disc bulge is present with anterior thecal sac contact. No AP spinal canal st enosis or neural foraminal stenosis is present. L4-L5: A based disc bulge has mild anterior thecal sac compression. No AP spinal canal stenosis is pr esent. Facet hypertrophy is present. Neural foramen remain patent. At L5: There is a compression defo rmity of L5 with approximately 50% loss of vertebral body height. No posterior wall displacement is e vident. L5-S1: No focal disc herniation or significant disc bulge is evident. No spinal canal stenosis or n eural foraminal stenosis is present Vertebral alignment appears normal. Please also see CT thoracic spine dictation same date. IMPRESSION: 1. Acute compression deformity of L3. Superior posterior wall displacement is 0.5 cm without stenosis . 2. Old compression deformities L5, L2. 3. Disc bulging with mild anterior thecal sac compression L4-5, L3-4, L2-3
[2021-06-05] MEDS: AZITHROMYCIN 250 MG TAB PO SCH (15:32)
[2021-06-05] MEDS: MAGNESIUM SULFATE-D5W PMX 1 GM in DEXTROSE/WATER 1 100ML.BAG IVPB SCH ×2 (15:32→17:41)
[2021-06-05] MEDS ORDERED: AZITHROMYCIN 500 MG in SODIUM CHLORIDE 0.9% 250 ML IVPB SCH (16:00)
[2021-06-05] MEDS: MONTELUKAST 10 MG TAB PO SCH (21:49)
[2021-06-05] MEDS: MELATONIN 3 MG TABLET PO PRN (21:51)
[2021-06-05] MEDS: THEOPHYLLINE 24 HOUR 400 MG CAP.ER.24H PO SCH (22:14)
[2021-06-06] MEDS: CEFEPIME 2 GM in SODIUM CHLORIDE 0.9% 100 ML IVPB SCH ×3 (00:23→17:13)
[2021-06-06] MEDS: HYDROcodone/APAP 10-325MG 1 EACH TAB PO PRN ×5 (02:32→22:31)
[2021-06-06] MEDS: PSYLLIUM HUSK 100% 6 GM PACKET PO SCH ×2 (07:55→22:22)
[2021-06-06] MEDS: MAGNESIUM OXIDE 400 MG TAB PO SCH (07:56)
[2021-06-06] MEDS: POTASSIUM CHLORIDE ER 20 MEQ TAB.ER PO SCH (07:56)
[2021-06-06] MEDS: MULTIVITAMINS, THERA 1 EACH TAB PO SCH (07:56)
[2021-06-06] MEDS: FUROSEMIDE 40 MG TAB PO SCH ×2 (07:57→17:13)
[2021-06-06] MEDS: PANTOPRAZOLE 40 MG TABLET PO SCH (07:57)
[2021-06-06] MEDS: ASPIRIN 81 MG PO SCH (07:57)
[2021-06-06] MEDS: CHOLECALCIFEROL 25 MCG (1000 IU) TABLET PO SCH (07:57)
[2021-06-06] MEDS: predniSONE 10 MG TAB PO SCH (07:57)
[2021-06-06] MEDS: VERAPAMIL 80 MG TAB PO SCH ×3 (07:58→17:13)
[2021-06-06] MEDS: SODIUM CHLORIDE 0.9% 1,000 ML IV SCH (07:58)
[2021-06-06] MEDS: FLUTICASONE 50MCG/SPRAY NASAL 16GM EA NOSTRIL SCH (07:59)
[2021-06-06] MEDS: DULoxetine HCL 30 MG CAPSULE.DR PO SCH (07:59)
[2021-06-06] MEDS: BUDESONIDE 1 MG/2 ML NEBU INHALATION SCH ×2 (08:36→21:02)
[2021-06-06] MEDS ORDERED: DEXAMETHASONE SOD PHOSPHATE 4 MG/ML 1 ML VIAL IV ONE (10:36)
[2021-06-06] MEDS ORDERED: ONDANSETRON 4 MG/2 ML VIAL IVP ONE (10:36)
[2021-06-06] MEDS: IPRATROPIUM-ALBUTEROL 3 ML NEB INHALATION PRN ×2 (11:43→21:02)
--- NOTE | 2021-06-06 14:21 | P.PN ---
Subjective Progress Note Date: 06/06/21 Patient is feeling about the same compared to yesterday. She is scheduled for the MRI of the back today. Objective - Vital Signs Vital signs: Vital Signs Temp 98.7 F 06/06/21 14:00 Pulse 72 06/06/21 14:00 Resp 18 06/06/21 14:00 BP 155/76 06/06/21 14:00 Pulse Ox 95 06/06/21 14:00 Intake & Output 06/05/21 06/06/21 06/06/21 18:59 06:59 18:59 Intake Total 700 Output Total 1200 1000 Balance -500 -1000 Intake: Intake, IV Titration 700 Amount Cefepime 2 gm In Sodium 100 Chloride 0.9% 100 ml @ 25 mls/hr IVPB Q8HR [facility] Rx# :[id number] Sodium Chloride 0.9% 1, 600 000 ml @ 50 mls/hr IV . Q20H [facility] Rx#:[id number] Output: Urine 1200 1000 Other: Voiding Method Indwelling Catheter Indwelling Catheter # Voids 3 - Exam General: The patient is awake and alert, in no distress Eye: there is normal conjunctiva bilaterally. Neck: The neck is supple, there is no JVD. Cardiovascular: Normal S1-S2, no S3-S4, no murmurs. Respiratory: Lungs clear to auscultation bilaterally Gastrointestinal: Abdomen is soft, nontender Musculoskeletal: There is no pedal edema. Neurological:. Speech is normal. Skin: Skin is warm and dry - Labs CBC & Chem 7: 06/05/21 06:18 06/05/21 06:18 Labs: Microbiology - Last 24 Hours (Table) 06/04/21 10:15 Blood Culture - Preliminary Blood No Growth after 48 hours 06/04/21 10:30 Blood Culture - Preliminary Blood No Growth after 48 hours 06/04/21 10:27 Urine Culture - Final Urine,Voided Assessment and Plan Assessment: This is a 66-year-old female with past medical history noted below who presented to the emergency room with acute on chronic back pain. Patient was evaluated in the ER and admitted to the hospital for further management of her medical problems noted below 1. Sepsis without septic shock 2. Healthcare acquired pneumonia, with elevated pro-calcitonin 3. UTI 4. Acute on chronic low back pain 5. Compression fracture/deformities involving T5, T6, T12, and L3: Seen and evaluated by orthopedic. Computed tomography scan reviewed awaiting MRI res ults. Plan for kyphoplasty on Sunday. Pain control as needed. 6. Hypokalemia and hypomagnesemia: Placement ordered 7. Advanced stage COPD on chronic daily prednisone 8. Obstructive sleep apnea on BiPAP at night 9. Underlying seizure disorder 10. Hypertension 11. Underlying rheumatoid arthritis Patient was started on broad-spectrum antibiotic with IV cefepime and oral azithromycin day #2. She received aggressive IV fluid hydration since presentation. Lactic acid is normal. Awaiting urine and blood culture. Bladder scan yesterday showed 297 mL awaiting repeat bladder scan today. Today, I reviewed her medication list and lab work results. Continue current management. Repeat lab work in the morning.
--- NOTE | 2021-06-06 14:21 | MR ---
EXAMINATION TYPE: MR lumbar spine wo con DATE OF EXAM: 06/06/2021 COMPARISON: CT 06/05/2021 HISTORY: 66-year-old female pain, Patient fell, leg weakness, fracture TECHNIQUE: Multiplanar, multisequence images of the lumbar spine were acquired. FINDINGS: Multiple vertebral compression deformities are present. T12 superior endplate deformity has a chronic appearance with mild retropulsion into the ventral spin al canal causing mild canal narrowing. There is a nondepressed superior endplate deformity of L1 that shows some marrow edema suggesting a m ore acute to subacute injury. Horizontally oriented superior endplate fracture line of L2 does not show much marrow edema, suspect a more chronic endplate injury. Larger superior endplate fracture of L3 with associated marrow edema and overall 50% height loss of t he mid aspect of the vertebral body. Minimal retropulsion into the ventral spinal canal noted. Chronic superior endplate fracture of L5. Variable mild impressions onto the spinal canal but only mild overall spinal canal stenosis at T11-T1 2. Conus medullaris is normal. Facet arthropathy lower lumbar spine. Some ligamentum flavum thickening also present. On the right, changes result in mild neuroforaminal narrowing at L4-L5 and L5-S1. On the left, changes result in mild foraminal narrowing at L2-L3 and L5-S1. IMPRESSION: 1. Multiple vertebral endplate deformities. Superior endplate deformity of T12, L2, and L5 have a mor e chronic appearance given the lack of any significant marrow edema. 2. Large superior endplate fracture of L3 is more acute to subacute with minimal retropulsion into th e ventral spinal canal. 3. Superior endplate fracture of L1 is also acute to subacute but without any significant vertebral b kavitha height loss at this time. 4. Old superior endplate injury of T12 shows mild retropulsion into the ventral spinal canal with ove rall mild spinal canal stenosis. 5. Variable mild neuroforaminal stenoses as outlined above.
--- NOTE | 2021-06-06 15:02 | P.PN ---
Subjective Progress Note Date: 06/06/21 Principal diagnosis: L3 vertebral compression fracture suspect acute Chronic T5-T6 and T12 compression fractures Osteoporosis Patient was seen at bedside this morning. Patient lying semirecumbent bed. She says she is still on back pain whenever she moves. Patient denies any numbness/tingling/radiation of pain in the legs. Patient denies any weakness in the legs. Patient states not much has changed since yesterday. Patient denies chest pain, fever, shortness breath, nausea, vomiting, change in vision, loss of bowel/bladder control. Objective - Vital Signs Vital signs: Vital Signs Temp 98.7 F 06/06/21 14:00 Pulse 72 06/06/21 14:00 Resp 18 06/06/21 14:00 BP 155/76 06/06/21 14:00 Pulse Ox 95 06/06/21 14:00 Intake & Output 06/05/21 06/06/21 06/06/21 18:59 06:59 18:59 Intake Total 700 Output Total 1200 1000 Balance -500 -1000 Intake: Intake, IV Titration 700 Amount Cefepime 2 gm In Sodium 100 Chloride 0.9% 100 ml @ 25 mls/hr IVPB Q8HR [facility] Rx# :[id number] Sodium Chloride 0.9% 1, 600 000 ml @ 50 mls/hr IV . Q20H [facility] Rx#:[id number] Output: Urine 1200 1000 Other: Voiding Method Indwelling Catheter Indwelling Catheter # Voids 3 - Exam Focused: Spine: TTP throughout thoracic spine and lumbar spine. No siginificant changes from Dr. Wyman consult note from 06/05/2021 Neurovascular: DP pulse intact bilaterally, 2+. Radial pulses intact bilaterally, 2+. cap refill < 3 sec - Labs CBC & Chem 7: 06/05/21 06:18 06/05/21 06:18 Labs: Microbiology - Last 24 Hours (Table) 06/04/21 10:15 Blood Culture - Preliminary Blood No Growth after 48 hours 06/04/21 10:30 Blood Culture - Preliminary Blood No Growth after 48 hours 06/04/21 10:27 Urine Culture - Final Urine,Voided Assessment and Plan Assessment: 66-year-old female status post fall from standing L3 vertebral compression fracture suspect acute Chronic T5-T6 and T12 compression fractures Osteoporosis Current UTI POA Multiple medical comorbidities Plan: 1. L3 vertebral compression fracture suspect acute; Chronic T5-T6 and T12 compression fractures - surgery scheduled for tomorrow for L3 and L5 biopsy with kyphoplasty. MRI spine being performed this afternoon. CT shows acute L3 compression fracture. 2. Appreciate medical management 3. Pain management - stable at this time. Continue Shirland 10mg/325mg q4h 4. GI prophylaxis Senna/Miralax 5. DVT ppx - mechanical Time with Patient: Less than 30
[2021-06-06] MEDS: AZITHROMYCIN 250 MG TAB PO SCH (17:48)
[2021-06-06] MEDS: MONTELUKAST 10 MG TAB PO SCH (22:21)
[2021-06-06] MEDS: THEOPHYLLINE 24 HOUR 400 MG CAP.ER.24H PO SCH (22:22)
[2021-06-06] MEDS: LACTATED RINGERS 1,000 ML IV SCH (22:55)
[2021-06-07] MEDS: CEFEPIME 2 GM in SODIUM CHLORIDE 0.9% 100 ML IVPB SCH ×3 (04:08→16:43)
[2021-06-07 04:29] LABS: African American GFR (CKD) >90 (>60 ml/min/1.73 sqM); Anion Gap 6 mmol/L; Blood Urea Nitrogen 10 mg/dL (7-17); Calcium 8.5 mg/dL (8.4-10.2); Carbon Dioxide 35 mmol/L (22-30); Chloride 93 mmol/L (98-107); Glucose 89 mg/dL (74-99); Non-African American GFR(CKD) >90 (>60 ml/min/1.73 sqM); Sodium 134 mmol/L (137-145)
[2021-06-07 04:33] LABS: Potassium 2.7 mmol/L (3.5-5.1)
[2021-06-07] MEDS: POTASSIUM CHLORIDE 10 MEQ in WATER FOR INJECTION 1 100ML.BAG IVPB SCH ×4 (06:22→10:01)
[2021-06-07] MEDS: POTASSIUM CHLORIDE ER 20 MEQ TAB.ER PO SCH (07:49)
[2021-06-07] MEDS: IPRATROPIUM-ALBUTEROL 3 ML NEB INHALATION PRN (08:36)
[2021-06-07] MEDS: BUDESONIDE 1 MG/2 ML NEBU INHALATION SCH ×2 (08:36→21:18)
[2021-06-07] MEDS ORDERED: MAGNESIUM SULFATE-D5W PMX 1 GM in DEXTROSE/WATER 1 100ML.BAG IVPB ONE (09:30)
--- NOTE | 2021-06-07 10:33 | P.PN ---
Subjective Progress Note Date: 06/07/21 Patient is doing fairly well today. She was scheduled for kyphoplasty this morning. She was noted to have significant hypokalemia awaiting replacement. Objective - Vital Signs Vital signs: Vital Signs Temp 99.0 F 06/07/21 07:55 Pulse 110 H 06/07/21 08:48 Resp 18 06/07/21 08:48 BP 150/73 06/07/21 07:55 Pulse Ox 98 06/07/21 08:37 Intake & Output 06/06/21 06/07/21 06/07/21 18:59 06:59 18:59 Output Total 1000 1200 Balance -1000 -1200 Output: Urine 1000 1200 Other: Voiding Method Indwelling Catheter Indwelling Catheter Indwelling Catheter - Exam General: The patient is awake and alert, in no distress Eye: there is normal conjunctiva bilaterally. Neck: The neck is supple, there is no JVD. Cardiovascular: Normal S1-S2, no S3-S4, no murmurs. Respiratory: Lungs clear to auscultation bilaterally Gastrointestinal: Abdomen is soft, nontender Musculoskeletal: There is no pedal edema. Neurological:. Speech is normal. Skin: Skin is warm and dry - Labs CBC & Chem 7: 06/05/21 06:18 06/07/21 09:17 Labs: Abnormal Lab Results - Last 24 Hours (Table) 06/07/21 06/07/21 Range/Units 04:07 09:17 Sodium 134 L (137-145) mmol/L Potassium 2.7 L* 3.3 L (3.5-5.1) mmol/L Chloride 93 L (98-107) mmol/L Carbon Dioxide 35 H (22-30) mmol/L Microbiology - Last 24 Hours (Table) 06/04/21 10:15 Blood Culture - Preliminary Blood No Growth after 48 hours 06/04/21 10:30 Blood Culture - Preliminary Blood No Growth after 48 hours Assessment and Plan Assessment: This is a 66-year-old female with past medical history noted below who presented to the emergency room with acute on chronic back pain. Patient was evaluated in the ER and admitted to the hospital for further management of her medical problems noted below 1. Sepsis without septic shock 2. Healthcare acquired pneumonia, with elevated pro-calcitonin 3. UTI 4. Acute on chronic low back pain 5. Compression fracture/deformities involving T5, T6, T12, and L3: Seen and evaluated by orthopedic. Computed tomography scan reviewed awaiting MRI results. Plan for kyphoplasty today. Pain control as needed. 6. Hypokalemia and hypomagnesemia: Replacement ordered 7. Advanced stage COPD on chronic daily prednisone 8. Obstructive sleep apnea on BiPAP at night 9. Underlying seizure disorder 10. Hypertension 11. Underlying rheumatoid arthritis 12. Obstructive uropathy status post Altamirano insertion on 06/06 Patient was started on broad-spectrum antibiotic with IV cefepime and oral azithromycin day #3. She received aggressive IV fluid hydration since presentation. Lactic acid is normal. Urine and blood culture negative to date. Today, I reviewed her medication list and lab work results. Continue current management. Repeat lab work in the morning. I advised to hold off surgery until we have a repeat potassium that is within acceptable range
[2021-06-07] MEDS ORDERED: ONDANSETRON 4 MG/2 ML VIAL ONE (10:45)
[2021-06-07] MEDS ORDERED: HYDROCORTISONE SUCCINATE 100 MG/2 ML VIAL IVP ONE (10:50)
[2021-06-07] MEDS ORDERED: ONDANSETRON 4 MG/2 ML VIAL IVP ONE (10:50)
[2021-06-07] MEDS ORDERED: fentaNYL (PF) 50 MCG/ML 2 ML AMP IVP ONE (10:50)
[2021-06-07] MEDS ORDERED: LACTATED RINGERS 1,000 ML IV ONE (11:05)
[2021-06-07] MEDS ORDERED: fentaNYL (PF) 50 MCG/ML 2 ML AMP ONE (12:15)
[2021-06-07] MEDS ORDERED: PROPOFOL 10 MG/ML 20 ML VIAL IV ONE (12:15)
[2021-06-07] MEDS ORDERED: KETAMINE 10 MG/ML 20 ML VIAL ONE (12:15)
[2021-06-07] MEDS ORDERED: SODIUM CHLORIDE 0.9% 100 ML with ceFAZolin 2,000 MG IV ONE ×2 (12:15)
[2021-06-07] MEDS ORDERED: LIDOCAINE 1% INJ 10MG/ML (20 ML MDV) ONE (12:15)
[2021-06-07] MEDS ORDERED: MIDAZOLAM 2 MG/2 ML VIAL ONE (12:15)
--- NOTE | 2021-06-07 12:27 | P.PN ---
Progress Note - Text Progress Note Date: 06/07/21 Pt s/e in pre op area with sister. She is ready for surgery. Consent signed and confirmed. NPO. All questions answered, Risks discussed again. No other issues. REady to proceed. Anesthesia has cleared for surgery.
[2021-06-07] MEDS: FLUTICASONE 50MCG/SPRAY NASAL 16GM EA NOSTRIL SCH (12:37)
[2021-06-07] MEDS: VERAPAMIL 80 MG TAB PO SCH ×3 (12:37→17:48)
[2021-06-07] MEDS: FUROSEMIDE 40 MG TAB PO SCH ×2 (12:38→16:43)
[2021-06-07] MEDS: PSYLLIUM HUSK 100% 6 GM PACKET PO SCH ×2 (12:38→20:44)
[2021-06-07] MEDS ORDERED: BUPIVACAINE (PF) 0.5% 30 ML VIAL SQ ONE ×2 (12:44)
[2021-06-07] MEDS ORDERED: LIDOCAINE 1%-EPI 1:100,000 20 ML VIAL SQ ONE ×2 (12:44)
[2021-06-07] MEDS ORDERED: IOPAMIDOL M200 10 ML VIAL INTRATHECA ONE (12:44)
--- NOTE | 2021-06-07 13:47 | P.PN ---
Progress Note - Text Progress Note Date: 06/07/21 Brief Post Op: Surgeon: Garo Pre op dx; T12 L2 L3 L5 vertebral compression fractures Post op dx: T12 L2 L3 L5 vertebral compression fractures Procedure: L3 kyphoplasty with biopsy, L5 kyphoplasty Anesthesia: Sedation with local EBL: 20 mL Fluids: Thousand cc UO: To 50 Dispo: Stable to PACU Post op Plan: Encourage ambulation IS 10x/hr Teds/SCDs Pain control LSO brace when up and about
[2021-06-07] MEDS: LACTATED RINGERS 1,000 ML IV SCH (14:15)
[2021-06-07] MEDS: ASPIRIN 81 MG PO SCH (14:39)
[2021-06-07] MEDS: MAGNESIUM OXIDE 400 MG TAB PO SCH (14:39)
[2021-06-07] MEDS: DULoxetine HCL 30 MG CAPSULE.DR PO SCH (14:39)
[2021-06-07] MEDS: MULTIVITAMINS, THERA 1 EACH TAB PO SCH (14:39)
[2021-06-07] MEDS: predniSONE 10 MG TAB PO SCH (14:39)
[2021-06-07] MEDS: PANTOPRAZOLE 40 MG TABLET PO SCH (14:39)
[2021-06-07] MEDS: CHOLECALCIFEROL 25 MCG (1000 IU) TABLET PO SCH (14:40)
--- NOTE | 2021-06-07 14:52 | XR ---
Fluoroscopy INDICATION: Pain FINDINGS: Fluoroscopy time: Not recorded Images obtained: 6. IMPRESSIONS: 1. Documentation of fluoroscopy.
--- NOTE | 2021-06-07 14:53 | FL ---
Fluoroscopy INDICATION: Pain FINDINGS: Fluoroscopy time: 2 minutes 47 seconds. Images obtained: 0. IMPRESSIONS: 1. Documentation of fluoroscopy.
[2021-06-07] MEDS: AZITHROMYCIN 250 MG TAB PO SCH (16:00)
[2021-06-07] MEDS: ACETAMINOPHEN TAB 325 MG TAB PO PRN (16:45)
[2021-06-07] MEDS: MONTELUKAST 10 MG TAB PO SCH (20:44)
[2021-06-07] MEDS: THEOPHYLLINE 24 HOUR 400 MG CAP.ER.24H PO SCH (20:44)
[2021-06-07] MEDS: MELATONIN 3 MG TABLET PO PRN (20:44)
[2021-06-08] MEDS: ACETAMINOPHEN TAB 325 MG TAB PO PRN (01:05)
[2021-06-08] MEDS: CEFEPIME 2 GM in SODIUM CHLORIDE 0.9% 100 ML IVPB SCH ×3 (07:25)
[2021-06-08] MEDS: HYDROcodone/APAP 10-325MG 1 EACH TAB PO PRN ×4 (07:25→21:19)
[2021-06-08] MEDS: MAGNESIUM OXIDE 400 MG TAB PO SCH (07:26)
[2021-06-08] MEDS: predniSONE 10 MG TAB PO SCH (07:26)
[2021-06-08] MEDS: FUROSEMIDE 40 MG TAB PO SCH ×2 (07:26→17:16)
[2021-06-08] MEDS: ASPIRIN 81 MG PO SCH ×2 (07:26→07:27)
[2021-06-08] MEDS: FLUTICASONE 50MCG/SPRAY NASAL 16GM EA NOSTRIL SCH (07:26)
[2021-06-08] MEDS: PANTOPRAZOLE 40 MG TABLET PO SCH (07:26)
[2021-06-08] MEDS: VERAPAMIL 80 MG TAB PO SCH ×3 (07:27→17:53)
[2021-06-08] MEDS: MULTIVITAMINS, THERA 1 EACH TAB PO SCH (07:27)
[2021-06-08] MEDS: DULoxetine HCL 30 MG CAPSULE.DR PO SCH (07:27)
[2021-06-08] MEDS: POTASSIUM CHLORIDE ER 20 MEQ TAB.ER PO SCH (07:27)
[2021-06-08] MEDS: CHOLECALCIFEROL 25 MCG (1000 IU) TABLET PO SCH (07:28)
[2021-06-08] MEDS: PSYLLIUM HUSK 100% 6 GM PACKET PO SCH ×2 (07:28→21:20)
[2021-06-08] MEDS: IPRATROPIUM-ALBUTEROL 3 ML NEB INHALATION PRN ×4 (07:35→20:26)
[2021-06-08] MEDS: BUDESONIDE 1 MG/2 ML NEBU INHALATION SCH ×2 (07:35→20:26)
--- NOTE | 2021-06-08 09:14 | P.PN ---
Subjective Progress Note Date: 06/08/21 Principal diagnosis: T12, L2, L3, L5 compression fractures Patient evaluated today at bedside, Dr. Wyman was also able to evaluate patient. She is resting in her hospital bed eating breakfast. She states that her low back is quite painful today, she noticed a different kind of pain. She has not been out of bed at this time. She does have the LSO brace present. She denies any loss of bowel or bladder function at this time, she denies any peroneal or genital numbness. Objective - Vital Signs Vital signs: Vital Signs Temp 98.3 F 06/08/21 07:51 Pulse 94 06/08/21 07:51 Resp 18 06/08/21 07:51 BP 153/67 06/08/21 07:51 Pulse Ox 100 06/08/21 07:51 Intake & Output 06/07/21 06/08/21 06/08/21 18:59 06:59 18:59 Intake Total 550 1070 Output Total 795 2200 Balance -245 -1130 Intake: IV 550 Intake, IV Titration 350 Amount Cefepime 2 gm In Sodium 100 Chloride 0.9% 100 ml @ 25 mls/hr IVPB Q8HR [facility] Rx# :[id number] Lactated Ringers 1,000 ml 250 @ 20 mls/hr IV .Q24H [facility] Rx#:[id number] Oral 720 Output: Urine 775 2200 Estimated Blood Loss 20 Other: Voiding Method Indwelling Catheter Indwelling Catheter # Voids 2 # Bowel Movements 1 - Exam Gen: AOx3, NAD VSS stable at this time Integument: Bandages are in place over the incisions, there is no drainage or erythema Palpation: Mild tenderness to palpation in the upper thoracic and lower lumbar spine ROM: Range of motion in all major muscle groups of the bilateral upper and lower extremities intact Sensory Exam: Senory exam to light touch is intact C5-T1 Senosry exam to light touch is intact L2-S1 Motor: 5/5 strength is present in all major muscle groups of the upper and lower extremities Reflexes: 2/4 in all UE and LE Negative Kristen's, negative Babinski, negative clonus bilaterally - Labs CBC & Chem 7: 06/05/21 06:18 06/07/21 10:37 Labs: Abnormal Lab Results - Last 24 Hours (Table) 06/07/21 Range/Units 09:17 Potassium 3.3 L (3.5-5.1) mmol/L Microbiology - Last 24 Hours (Table) 06/04/21 10:15 Blood Culture - Preliminary Blood No Growth after 72 hours 06/04/21 10:30 Blood Culture - Preliminary Blood No Growth after 72 hours Assessment and Plan Assessment: T12, L2, L3, L5 compression fractures Status post biopsy with kyphoplasty of L3 vertebrae, L5 kyphoplasty Other medical comorbidities Plan: Pain control, continue use of current medications GI and DVT prophylaxis per primary medical service Recommend use of also brace when ambulating, also utilize walker or cane Recommend dressing changes daily, okay to shower over incision the next 2 days Other medical sales consultant and recommendations Discharge planning: An orthopedic standpoint patient stable for discharge and follow-up in the outpatient setting Time with Patient: Less than 30
[2021-06-08] MEDS: LACTATED RINGERS 1,000 ML IV SCH (11:16)
--- NOTE | 2021-06-08 11:25 | P.PN ---
Subjective Progress Note Date: 06/08/21 Patient sitting in bed. She continues to have back pain. She underwent kyphoplasty yesterday. She is awaiting physical therapy evaluation. Objective - Vital Signs Vital signs: Vital Signs Temp 98.3 F 06/08/21 07:51 Pulse 84 06/08/21 11:20 Resp 15 06/08/21 08:00 BP 153/67 06/08/21 07:51 Pulse Ox 100 06/08/21 07:51 Intake & Output 06/07/21 06/08/21 06/08/21 18:59 06:59 18:59 Intake Total 550 1070 Output Total 795 2200 Balance -245 -1130 Intake: IV 550 Intake, IV Titration 350 Amount Cefepime 2 gm In Sodium 100 Chloride 0.9% 100 ml @ 25 mls/hr IVPB Q8HR [facility] Rx# :[id number] Lactated Ringers 1,000 ml 250 @ 20 mls/hr IV .Q24H [facility] Rx#:[id number] Oral 720 Output: Urine 775 2200 Estimated Blood Loss 20 Other: Voiding Method Indwelling Catheter Indwelling Catheter Indwelling Catheter # Voids 2 # Bowel Movements 1 - Exam General: The patient is awake and alert, in no distress Eye: there is normal conjunctiva bilaterally. Neck: The neck is supple, there is no JVD. Cardiovascular: Normal S1-S2, no S3-S4, no murmurs. Respiratory: Lungs clear to auscultation bilaterally Gastrointestinal: Abdomen is soft, nontender Musculoskeletal: There is no pedal edema. Neurological:. Speech is normal. Skin: Skin is warm and dry - Labs CBC & Chem 7: 06/05/21 06:18 06/07/21 10:37 Labs: Microbiology - Last 24 Hours (Table) 06/04/21 10:15 Blood Culture - Preliminary Blood No Growth after 72 hours 06/04/21 10:30 Blood Culture - Preliminary Blood No Growth after 72 hours Assessment and Plan Assessment: This is a 66-year-old female with past medical history noted below who presented to the emergency room with acute on chronic back pain. Patient was evaluated in the ER and admitted to the hospital for further management of her medical problems noted below 1. Sepsis without septic shock 2. Healthcare acquired pneumonia, with elevated pro-calcitonin 3. UTI 4. Acute on chronic low back pain 5. Compression fracture/deformities involving T5, T6, T12, and L3: Seen and evaluated by orthopedic. Status post kyphoplasty of L3 and L5 and biopsy of L3 6. Hypokalemia and hypomagnesemia: Replacement ordered 7. Advanced stage COPD on chronic daily prednisone 8. Obstructive sleep apnea on BiPAP at night 9. Underlying seizure disorder 10. Hypertension 11. Underlying rheumatoid arthritis 12. Obstructive uropathy status post Altamirano insertion on 06/06. Voiding trial when patient get up and ambulate. Patient was started on broad-spectrum antibiotic with IV cefepime and oral azithromycin day #4. I would switch cefepime to IV ceftriaxone. She received aggressive IV fluid hydration since presentation. Lactic acid is normal. Urine and blood culture negative to date. Today, I reviewed her medication list and lab work results. Continue current management. Repeat lab work in the morning. Awaiting PT/OT evaluation. We discussed placement with school social worker.
[2021-06-08] MEDS ORDERED: ACETAMINOPHEN TAB 325 MG TAB PO PRN (12:01)
[2021-06-08] MEDS: AZITHROMYCIN 250 MG TAB PO SCH (14:26)
--- NOTE | 2021-06-08 15:59 | P.CONS ---
History of Present Illness - Chief Complaint Walking difficulty - History of Present Illness I had the opportunity to see patient for inpatient rehab consultation care to walking difficulty. Patient admitted to [facility] June 04 with known back pain. Multiple tests done. C-spine x-ray demonstrates T5, 6 compressions and old T12. Lumbar spine with 30% L3 compression. Chest x-ray with right upper lobe and left lower lobe infiltrate versus atelectasis. T-spine CT with compressions T6 tests 8. Lumbar spine CT with acute L3 and old L2, 5 and bulges L2-4. Lumbar MRI with fractures at T12, L1. His started therapies. PT reports minimal assistance for bed mobility moderate assistance for standing and transfers. OT reports moderate assistance for upper dressing and bathing and toileting and maximal assistance for lower dressing and minimal assistance functional ability transfers. Previous functional history elicited patient: 66-year-old right-handed white female is lives in one floor home alone. Retired. Describes independent with own cooking, laundry, driving, standing shower gait without device. Denies tobacco or alcohol. Review of Systems Review of systems: ENT: Denies sneezes or discharge. Eyes: Denies discharge or photophobia. Cardiac: Denies chest pain or palpitation. Pulmonary: Denies cough or shortness of breath. Breast: Denies discharge or lumps. Gastrointestinal: Denies nausea, emesis, constipation, diarrhea. Genitourinary: Denies discharge or frequency. Musculoskeletal: Back pain. Neurologic: Back and leg pain which is improved as well as lower extremity weakness. Endocrine: Denies shakes or sweats. Oncology: Denies cancers. Dermatologic: Denies rash, itching, pruritus. ALLERGY/immunology: Denies sneezes, rashes. Past Medical History Past Medical History: Cancer, COPD, Deep Vein Thrombosis (DVT), Hypertension, Pneumonia, Rheumatoid Arthritis (RA) Additional Past Medical History / Comment(s): hearing difficulty currently, colitis, osteopenia, hx cancer of appendix, uses oxygen 3L continuous. chronic back pain, restless leg, COPD. 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 Colonoscopy 2017. pain procedure at [facility] with Dr Ty. TAD with unilateral oophorectomy 1983. Partial vulvectomy in 2000. Past Anesthesia/Blood Transfusion Reactions: No Reported Reaction Additional Past Anesthesia/Blood Transfusion Reaction / Comm: states is not s upposed to have general anesthesia R/T awaiting lung transplant Past Psychological History: ADD/ADHD, Anxiety Additional Psychological History / Comment(s): . Smoking Status: Former smoker Past Alcohol Use History: None Reported Additional Past Alcohol Use History / Comment(s): Pt. states she quit smoking in 1999. smoked 1-1 1/2 PPD, started smoking age 13. Past Drug Use History: None Reported Additional Drug Use History / Comment(s): Quit using Marijuana 04/2016. - Past Family History Father Family Medical History: Cancer, COPD Additional Family Medical History / Comment(s): COLON cancer Mother Family Medical History: Cancer Additional Family Medical History / Comment(s): ESOPHAGUS cancer Sister(s) Family Medical History: Cancer Additional Family Medical History / Comment(s): CERVICAL cancer Medications and Allergies Home Medications Medication Instructions Recorded Confirmed Type rOPINIRole HCL [Requip] 0.5 mg PO HS 03/24/20 06/04/21 History Cholecalciferol [Vitamin D3 (25 25 mcg PO DAILY 04/08/20 06/04/21 History Mcg = 1000 Iu)] Magnesium Oxide [Mag-Ox] 400 mg PO DAILY 09/15/20 06/04/21 History Melatonin 3 mg PO HS PRN 10/11/20 06/04/21 History Acetaminophen Tab [Tylenol] 650 mg PO Q4H PRN 12/30/20 06/04/21 History Fluticasone Nasal [place] [Flonase 1 spr EA NOSTRIL DAILY 12/30/20 06/04/21 History Nasal [place]] Multivitamins, Thera [Multivitamin 1 tab PO DAILY 12/30/20 06/04/21 History (formulary)] Pantoprazole Sodium [Protonix] 40 mg PO DAILY 12/30/20 06/04/21 History Theophylline 24 Hour [Sekou-24] 400 mg PO HS 12/30/20 06/04/21 History Budesonide [Pulmicort] 1 mg INHALATION RT-BID 01/15/21 06/04/21 History DULoxetine HCL [Cymbalta] 30 mg PO DAILY 01/15/21 06/04/21 History Verapamil [Isoptin] 80 mg PO AC-TID 01/15/21 06/04/21 History Furosemide [Lasix] 40 mg PO BID@0900,1700 02/19/21 06/04/21 History Montelukast [Singulair] 10 mg PO HS 02/19/21 06/04/21 History levETIRAcetam [Keppra] 750 mg PO BID 02/19/21 06/04/21 History Albuterol Inhaler [Ventolin Hfa 2 puff INHALATION RT-QID puff 02/25/21 06/04/21 Rx Inhaler] Psyllium Husk 100% [Metamucil 6 gm PO BID #1 packet 02/25/21 06/04/21 Rx Packet] Loratadine [Claritin] 10 mg PO DAILY 04/24/21 06/04/21 History Potassium Chloride ER [K-Dur 20] 40 meq PO DAILY 04/24/21 06/04/21 History HYDROcodone/APAP 10-325MG [[place] 1 tab PO Q6H PRN 05/22/21 06/04/21 History 10-325] Ipratropium-Albuterol Nebulize 3 ml INHALATION RT-QID PRN 05/22/21 06/04/21 History [Duoneb 0.5 mg-3 mg/3 ml Soln] Lidocaine 5% Patch [Lidoderm 5% 1 patch TRANSDERM DAILY PRN 05/22/21 06/04/21 History Patch] polyethylene glycoL 3350 [Miralax] 17 gm PO DAILY PRN 05/22/21 06/04/21 History predniSONE 10 mg PO DAILY 05/22/21 06/04/21 History Aspirin 81 mg PO DAILY #30 chew 05/26/21 06/04/21 Rx Allergies Allergy/AdvReac Type Severity Reaction Status Date / Time infliximab [From Remicade] Allergy Dyspnea/HIV Verified 05/22/21 17:07 ES propoxyphene [From Darvon] Allergy Rash/Hives Verified 05/22/21 17:07 adhesive tape AdvReac "is hard Verified 05/22/21 17:07 on skin" Physical Exam Vitals: Vital Signs Temp Pulse Pulse Resp BP BP Pulse Ox 06/08/21 14:01 98.2 F 92 16 149/76 99 06/08/21 11:20 84 06/08/21 11:07 86 06/08/21 08:00 15 06/08/21 07:51 98.3 F 84 94 18 153/67 100 06/08/21 07:35 80 06/08/21 02:00 97.5 F L 96 18 141/65 96 06/07/21 21:30 91 19 06/07/21 21:18 81 18 98 06/07/21 20:00 98.2 F 85 19 133/65 96 Intake and Output 06/08/21 06/08/21 06/08/21 06:59 14:59 22:59 Intake Total 1070 Output Total 1100 Balance -30 Intake: Intake, IV Titration 350 Amount Cefepime 2 gm In Sodium 100 Chloride 0.9% 100 ml @ 25 mls/hr IVPB Q8HR [facility] Rx# :[id number] Lactated Ringers 1,000 ml 250 @ 20 mls/hr IV .Q24H [facility] Rx#:[id number] Oral 720 Output: Urine 1100 Other: Voiding Method Indwelling Catheter # Voids 2 # Bowel Movements 1 Skin: Good color, texture, turgor. General: Medium build and comfortable appearance. Head: Normocephalic, atraumatic. Eyes: Symmetric. Pupils equal round. Ears: Symmetric. Hearing within normal limits. Mouth: Clear. Neck: Supple. Carotid without bruit. Cardiac: Regular rate and rhythm. Lungs: Clear anteriorly and posteriorly. Abdomen: Soft active nontender. Extremities: Normal tone. Neurological: Mental status: Alert, cooperative, pleasant. Cranial nerves: Symmetric facial tone and trapezius. Motor: Active movement all 4 limbs. Arms are greater than antigravity in legs at least antigravity. Sensation: Intact throughout. DTRs: Symmetric and equal throughout. Mobility: Patient requires assistance for bed mobility. Results CBC & Chem 7: 06/05/21 06:18 06/07/21 10:37 Labs: Microbiology - Last 24 Hours (Table) 06/04/21 10:15 Blood Culture - Preliminary Blood No Growth after 96 hours 06/04/21 10:30 Blood Culture - Preliminary Blood No Growth after 96 hours Assessment and Plan (1) Compression fracture Current Visit: Yes Status: Acute Code(s): [id number] - SNOMED Code(s): 777918581 Plan: Impression: 1. Walking difficulty. 2. Thoracic and lumbar disc disease with multiple compressions and disc bulges. 3. Hypertension. 4. Rheumatoid arthritis per 5. COPD. 6. History of DVT and cancer. Comments and plan: At this time PT and OT are ongoing part safety concerns noted. Has demonstrated ability tolerate and benefit from therapy and affect is inpatient rehab previously. In fact may benefit from admission to rehab unit which appears to be a new problem.
[2021-06-08] MEDS ORDERED: bisacodyL 5 MG TABLET.DR PO STA (17:22)
[2021-06-08] MEDS: SENNOSIDES 8.6 MG TAB PO SCH (21:20)
[2021-06-08] MEDS: THEOPHYLLINE 24 HOUR 400 MG CAP.ER.24H PO SCH (23:24)
[2021-06-08] MEDS: MONTELUKAST 10 MG TAB PO SCH (23:24)
[2021-06-09] MEDS: HYDROcodone/APAP 10-325MG 1 EACH TAB PO PRN ×5 (01:14→20:52)
[2021-06-09] MEDS: IPRATROPIUM-ALBUTEROL 3 ML NEB INHALATION PRN ×4 (07:17→19:35)
[2021-06-09] MEDS: BUDESONIDE 1 MG/2 ML NEBU INHALATION SCH ×2 (07:17→19:35)
[2021-06-09] MEDS: MAGNESIUM OXIDE 400 MG TAB PO SCH (08:37)
[2021-06-09] MEDS: predniSONE 10 MG TAB PO SCH (08:38)
[2021-06-09] MEDS: MULTIVITAMINS, THERA 1 EACH TAB PO SCH (08:38)
[2021-06-09] MEDS: POTASSIUM CHLORIDE ER 20 MEQ TAB.ER PO SCH (08:38)
[2021-06-09] MEDS: DULoxetine HCL 30 MG CAPSULE.DR PO SCH (08:38)
[2021-06-09] MEDS: SENNOSIDES 8.6 MG TAB PO SCH ×2 (08:38→20:49)
[2021-06-09] MEDS: PANTOPRAZOLE 40 MG TABLET PO SCH (08:38)
[2021-06-09] MEDS: VERAPAMIL 80 MG TAB PO SCH ×3 (08:38→18:00)
[2021-06-09] MEDS: ASPIRIN 81 MG PO SCH (08:38)
[2021-06-09] MEDS: FUROSEMIDE 40 MG TAB PO SCH ×2 (08:39→15:11)
[2021-06-09] MEDS: PSYLLIUM HUSK 100% 6 GM PACKET PO SCH ×2 (08:39→20:51)
[2021-06-09] MEDS: CHOLECALCIFEROL 25 MCG (1000 IU) TABLET PO SCH (08:39)
[2021-06-09] MEDS: FLUTICASONE 50MCG/SPRAY NASAL 16GM EA NOSTRIL SCH (08:43)
[2021-06-09 09:35] LABS: Basophils # (A) 0.03 X 10*3/uL (0.00-0.10); Basophils % (A) 0.2 %; Eosinophils # (A) 0.56 X 10*3/uL (0.04-0.35); Eosinophils % (A) 4.2 %; HCT 28.7 % (37.2-46.3); HGB 8.6 g/dL (12.0-15.0); Lymphocytes # (A) 1.08 X 10*3/uL (0.90-5.00); Lymphocytes % (A) 8.1 %; MCH 25.7 pg (27.0-32.0); MCV 85.9 fL (80.0-97.0); Mean Platelet Volume 10.4 fL (9.5-12.2); Monocytes # (A) 0.59 X 10*3/uL (0.20-1.00); Monocytes % (A) 4.4 %; Neutrophils # (A) 10.96 X 10*3/uL (1.80-7.70); Neutrophils % (A) 81.9 %; Platelet Count 290 X 10*3/uL (140-440); RBC 3.34 X 10*6/uL (4.10-5.20); RDW 18.1 % (11.5-14.5); WBC 13.38 X 10*3/uL (4.50-10.00)
[2021-06-09 10:58] LABS: African American GFR (CKD) 115.3 (60.0-200.0); Anion Gap 9.8 mmol/L (4.00-12.00); Calcium 8.2 mg/dL (8.7-10.3); Carbon Dioxide 38.2 mmol/L (21.6-31.8); Non-African American GFR(CKD) 99.4 (60.0-200.0)
--- NOTE | 2021-06-09 12:17 | P.PN ---
Subjective Progress Note Date: 06/09/21 Principal diagnosis: T12, L2, L3, L5 compression fractures Patient evaluated today at bedside, she is sitting up in her hospital chair. She is utilizing LSO brace at this time. she states she is having some increase in pain in her low back. She notices this mainly when getting up from the lying position to the chair. She denies any loss of bowel or bladder function at this time, she denies any peroneal or genital numbness. Objective - Vital Signs Vital signs: Vital Signs Temp 97.6 F 06/09/21 07:23 Pulse 96 06/09/21 07:34 Resp 18 06/09/21 07:23 BP 119/66 06/09/21 07:23 Pulse Ox 99 06/09/21 07:23 Intake & Output 06/08/21 06/09/21 06/09/21 18:59 06:59 18:59 Intake Total 360 700 Output Total 800 1900 Balance -440 -1200 Intake: Intake, IV Titration 100 Amount Cefepime 2 gm In Sodium 100 Chloride 0.9% 100 ml @ 25 mls/hr IVPB Q8HR [facility] Rx# :[id number] Oral 360 600 Output: Urine 800 1900 Other: Voiding Method Indwelling Catheter Indwelling Catheter # Voids 2 # Bowel Movements 1 - Exam Gen: AOx3, NAD VSS stable at this time Integument: Bandages are in place over the incisions, there is no drainage or erythema Palpation: Mild tenderness to palpation in the upper thoracic and lower lumbar spine ROM: Range of motion in all major muscle groups of the bilateral upper and lower extremities intact Sensory Exam: Senory exam to light touch is intact C5-T1 Sen[place] exam to light touch is intact L2-S1 Motor: 5/5 strength is present in all major muscle groups of the upper and lower extremities Reflexes: 2/4 in all UE and LE Negative Kristen's, negative Babinski, negative clonus bilaterally - Labs CBC & Chem 7: 06/09/21 05:33 06/09/21 05:33 Labs: Abnormal Lab Results - Last 24 Hours (Table) 06/09/21 06/09/21 Range/Units 05:33 05:33 WBC 13.38 H (4.50-10.00) X 10*3/uL RBC 3.34 L (4.10-5.20) X 10*6/uL Hgb 8.6 L (12.0-15.0) g/dL Hct 28.7 L (37.2-46.3) % MCH 25.7 L (27.0-32.0) pg MCHC 30.0 L (32.0-37.0) g/dL RDW 18.1 H (11.5-14.5) % Immature Gran # 0.16 H (0.00-0.04) X 10*3/uL Neutrophils # 10.96 H (1.80-7.70) X 10*3/uL Eosinophils # 0.56 H (0.04-0.35) X 10*3/uL Potassium 3.0 L (3.5-5.5) mmol/L Chloride 91 L (96-109) mmol/L Carbon Dioxide 38.2 H (21.6-31.8) mmol/L Creatinine 0.5 L (0.6-1.5) mg/dL BUN/Creatinine Ratio 24.00 H (12.00-20.00) Ratio Calcium 8.2 L (8.7-10.3) mg/dL Microbiology - Last 24 Hours (Table) 06/04/21 10:15 Blood Culture - Preliminary Blood No Growth after 96 hours 06/04/21 10:30 Blood Culture - Preliminary Blood No Growth after 96 hours Assessment and Plan Assessment: T12, L2, L3, L5 compression fractures Status post biopsy with kyphoplasty of L3 vertebrae, L5 kyphoplasty Other medical comorbidities Plan: Pain control, continue use of current medications GI and DVT prophylaxis per primary medical service Recommend use of LSO brace when up and aboute, also utilize walker or cane Recommend dressing changes daily Other administrative medical director and recommendations Discharge planning: An orthopedic standpoint patient stable for discharge and follow-up in the outpatient setting Time with Patient: Less than 30
[2021-06-09] MEDS: AZITHROMYCIN 250 MG TAB PO SCH (15:11)
[2021-06-09] MEDS: LACTATED RINGERS 1,000 ML IV SCH (15:11)
--- NOTE | 2021-06-09 15:30 | P.PN ---
Subjective Progress Note Date: 06/09/21 Patient sitting in bed. She continues to have back pain. She underwent kyphoplasty postoperative day #2. She is awaiting placement for rehab. Objective - Vital Signs Vital signs: Vital Signs Temp 98.6 F 06/09/21 13:48 Pulse 93 06/09/21 13:48 Resp 17 06/09/21 13:48 BP 131/82 06/09/21 13:48 Pulse Ox 95 06/09/21 13:48 Intake & Output 06/08/21 06/09/21 06/09/21 18:59 06:59 18:59 Intake Total 360 700 Output Total 800 1900 Balance -440 -1200 Intake: Intake, IV Titration 100 Amount Cefepime 2 gm In Sodium 100 Chloride 0.9% 100 ml @ 25 mls/hr IVPB Q8HR [facility] Rx# :[id number] Oral 360 600 Output: Urine 800 1900 Other: Voiding Method Indwelling Catheter Indwelling Catheter # Voids 2 # Bowel Movements 1 - Exam General: The patient is awake and alert, in no distress Eye: there is normal conjunctiva bilaterally. Neck: The neck is supple, there is no JVD. Cardiovascular: Normal S1-S2, no S3-S4, no murmurs. Respiratory: Lungs clear to auscultation bilaterally Gastrointestinal: Abdomen is soft, nontender Musculoskeletal: There is no pedal edema. Neurological:. Speech is normal. Skin: Skin is warm and dry - Labs CBC & Chem 7: 06/09/21 05:33 06/09/21 05:33 Labs: Abnormal Lab Results - Last 24 Hours (Table) 06/09/21 06/09/21 Range/Units 05:33 05:33 WBC 13.38 H (4.50-10.00) X 10*3/uL RBC 3.34 L (4.10-5.20) X 10*6/uL Hgb 8.6 L (12.0-15.0) g/dL Hct 28.7 L (37.2-46.3) % MCH 25.7 L (27.0-32.0) pg MCHC 30.0 L (32.0-37.0) g/dL RDW 18.1 H (11.5-14.5) % Immature Gran # 0.16 H (0.00-0.04) X 10*3/uL Neutrophils # 10.96 H (1.80-7.70) X 10*3/uL Eosinophils # 0.56 H (0.04-0.35) X 10*3/uL Potassium 3.0 L (3.5-5.5) mmol/L Chloride 91 L (96-109) mmol/L Carbon Dioxide 38.2 H (21.6-31.8) mmol/L Creatinine 0.5 L (0.6-1.5) mg/dL BUN/Creatinine Ratio 24.00 H (12.00-20.00) Ratio Calcium 8.2 L (8.7-10.3) mg/dL Microbiology - Last 24 Hours (Table) 06/04/21 10:30 Blood Culture - Preliminary Blood No Growth after 120 hours 06/04/21 10:15 Blood Culture - Preliminary Blood No Growth after 120 hours Assessment and Plan Assessment: This is a 66-year-old female with past medical history noted below who presented to the emergency room with acute on chronic back pain. Patient was evaluated in the ER and admitted to the hospital for further management of her medical problems noted below 1. Sepsis without septic shock 2. Healthcare acquired pneumonia, with elevated pro-calcitonin 3. UTI 4. Acute on chronic low back pain 5. Compression fracture/deformities involving T5, T6, T12, and L3: Seen and evaluated by orthopedic. Status post kyphoplasty of L3 and L5 and biopsy of L3 6. Hypokalemia and hypomagnesemia: Replacement ordered 7. Advanced stage COPD on chronic daily prednisone 8. Obstructive sleep apnea on BiPAP at night 9. Underlying seizure disorder 10. Hypertension 11. Underlying rheumatoid arthritis 12. Obstructive uropathy status post Altamirano insertion on 06/06. Voiding trial when patient get up and ambulate. Patient finished 5 days course of antibiotic. Urine and blood culture negative to date. Today, I reviewed her medication list and lab work results. Continue current management. Repeat lab work in the morning. Awaiting placement for rehab
[2021-06-09 20:36] VITALS: RESP 18
[2021-06-09] MEDS: MELATONIN 3 MG TABLET PO PRN (20:49)
[2021-06-09] MEDS: MONTELUKAST 10 MG TAB PO SCH (20:49)
[2021-06-09] MEDS ORDERED: POTASSIUM CHLORIDE ER 20 MEQ TAB.ER PO SCH (21:00)
[2021-06-09] MEDS: THEOPHYLLINE 24 HOUR 400 MG CAP.ER.24H PO SCH (22:35)
[2021-06-10] MEDS: HYDROcodone/APAP 10-325MG 1 EACH TAB PO PRN ×2 (03:37→08:13)
[2021-06-10] MEDS: BUDESONIDE 1 MG/2 ML NEBU INHALATION SCH (07:39)
[2021-06-10] MEDS: IPRATROPIUM-ALBUTEROL 3 ML NEB INHALATION PRN (07:39)
[2021-06-10 08:10] LABS: Magnesium 1.5 mg/dL (1.6-2.3); Potassium 3.1 mmol/L (3.5-5.1)
[2021-06-10] MEDS: PSYLLIUM HUSK 100% 6 GM PACKET PO SCH (08:12)
[2021-06-10] MEDS: POTASSIUM CHLORIDE ER 20 MEQ TAB.ER PO SCH (08:13)
[2021-06-10] MEDS: SENNOSIDES 8.6 MG TAB PO SCH (08:13)
[2021-06-10] MEDS: predniSONE 10 MG TAB PO SCH (08:13)
[2021-06-10] MEDS: PANTOPRAZOLE 40 MG TABLET PO SCH (08:13)
[2021-06-10] MEDS: ASPIRIN 81 MG PO SCH (08:13)
[2021-06-10] MEDS: MAGNESIUM OXIDE 400 MG TAB PO SCH (08:13)
[2021-06-10] MEDS: MULTIVITAMINS, THERA 1 EACH TAB PO SCH (08:13)
[2021-06-10] MEDS: FUROSEMIDE 40 MG TAB PO SCH (08:13)
[2021-06-10] MEDS: DULoxetine HCL 30 MG CAPSULE.DR PO SCH (08:14)
[2021-06-10] MEDS: VERAPAMIL 80 MG TAB PO SCH (08:14)
[2021-06-10] MEDS: CHOLECALCIFEROL 25 MCG (1000 IU) TABLET PO SCH (08:14)
[2021-06-10] MEDS: FLUTICASONE 50MCG/SPRAY NASAL 16GM EA NOSTRIL SCH (08:15)
[2021-06-10 08:43] VITALS: BP 126/74; PULSE 119; TEMP 97.9
--- NOTE | 2021-06-10 10:44 | P.DS ---
Providers Date of admission: 06/04/21 12:25 Expected date of discharge: 06/10/21 Attending physician: Tosha Earl Consults: 06/04/21 16:08 Consult Physician Routine Consulting Provider: Thee Wyman Consult Reason/Comments: back pain Do you want consulting provider notified?: Yes 06/08/21 11:50 Consult Physician Routine Consulting Provider: Asher Cunha Consult Reason/Comments: IPR Do you want consulting provider notified?: Yes Primary care physician: Gavin [facility] Course: This is a 66-year-old female with past medical history noted below who presented to the emergency room with acute on chronic back pain. Patient was evaluated in the ER and admitted to the hospital for further management of her medical problems noted below 1. Sepsis without septic shock 2. Healthcare acquired pneumonia, with elevated pro-calcitonin 3. UTI 4. Acute on chronic low back pain 5. Compression fracture/deformities involving T5, T6, T12, and L3: Seen and ev aluated by orthopedic. Status post kyphoplasty of L3 and L5 and biopsy of L3 6. Hypokalemia and hypomagnesemia: Replacement ordered 7. Advanced stage COPD on chronic daily prednisone 8. Obstructive sleep apnea on BiPAP at night 9. Underlying seizure disorder 10. Hypertension 11. Underlying rheumatoid arthritis 12. Obstructive uropathy status post Altamirano insertion on 06/06. Altamirano catheter was discontinued today. Check bladder scan and monitor postvoid residuals in the next 24 hours. Patient finished 5 days course of antibiotic. Urine and blood culture negative to date. Patient with persistent hypokalemia and hypomagnesemia that has been replaced throughout her hospital stay. Lasix dose adjusted from twice daily to once a day. Continue potassium and magnesium supplements. Recheck lab work tomorrow. Patient was seen, evaluated, and examined by me today. Her pain is tolerable. She does not have any complaint. She was seen and evaluated by PT/OT. She was accepted for acute rehab in [place] and will be transferred in a stable condition. Patient Condition at Discharge: Fair Plan - Discharge Summary Discharge Rx Participant: No New Discharge Prescriptions: New Furosemide [Lasix] 40 mg PO DAILY #30 tablet HYDROcodone/APAP 10-325MG [[place] 10-325] 1 each PO Q4H PRN #16 tab PRN Reason: Pain Continue rOPINIRole HCL [Requip] 0.5 mg PO HS Cholecalciferol [Vitamin D3 (25 Mcg = 1000 Iu)] 25 mcg PO DAILY Melatonin 3 mg PO HS PRN PRN Reason: Insomnia Fluticasone Nasal [place] [Flonase Nasal [place]] 1 spr EA NOSTRIL DAILY Theophylline 24 Hour [Sekou-24] 400 mg PO HS Pantoprazole Sodium [Protonix] 40 mg PO DAILY Multivitamins, Thera [Multivitamin (formulary)] 1 tab PO DAILY DULoxetine HCL [Cymbalta] 30 mg PO DAILY Montelukast [Singulair] 10 mg PO HS Loratadine [Claritin] 10 mg PO DAILY Aspirin 81 mg PO DAILY #30 chew Verapamil [Isoptin] 80 mg PO AC-TID Budesonide [Pulmicort] 1 mg INHALATION RT-BID levETIRAcetam [Keppra] 750 mg PO BID Psyllium Husk 100% [Metamucil Packet] 6 gm PO BID #1 packet Albuterol Inhaler [Ventolin Hfa Inhaler] 2 puff INHALATION RT-QID puff Potassium Chloride ER [K-Dur 20] 40 meq PO DAILY predniSONE 10 mg PO DAILY polyethylene glycoL 3350 [Miralax] 17 gm PO DAILY PRN PRN Reason: Constipation Ipratropium-Albuterol Nebulize [Duoneb 0.5 mg-3 mg/3 ml Soln] 3 ml INHALATION RT-QID PRN PRN Reason: Shortness Of Breath Lidocaine 5% Patch [Lidoderm 5% Patch] 1 patch TRANSDERM DAILY PRN PRN Reason: Lower Back Pain Changed Magnesium Oxide [Mag-Ox] 400 mg PO BID #0 Discontinued Acetaminophen Tab [Tylenol] 650 mg PO Q4H PRN PRN Reason: Pain Furosemide [Lasix] 40 mg PO BID@0900,1700 HYDROcodone/APAP 10-325MG [[place] 10-325] 1 tab PO Q6H PRN PRN Reason: Pain Discharge Medication List rOPINIRole HCL [Requip] 0.5 mg PO HS 03/24/20 [History] Cholecalciferol [Vitamin D3 (25 Mcg = 1000 Iu)] 25 mcg PO DAILY 04/08/20 [History] Melatonin 3 mg PO HS PRN 10/11/20 [History] Fluticasone Nasal [place] [Flonase Nasal [place]] 1 spr EA NOSTRIL DAILY 12/30/20 [History] Multivitamins, Thera [Multivitamin (formulary)] 1 tab PO DAILY 12/30/20 [History] Pantoprazole Sodium [Protonix] 40 mg PO DAILY 12/30/20 [History] Theophylline 24 Hour [Sekou-24] 400 mg PO HS 12/30/20 [History] Budesonide [Pulmicort] 1 mg INHALATION RT-BID 01/15/21 [History] DULoxetine HCL [Cymbalta] 30 mg PO DAILY 01/15/21 [History] Verapamil [Isoptin] 80 mg PO AC-TID 01/15/21 [History] Montelukast [Singulair] 10 mg PO HS 02/19/21 [History] levETIRAcetam [Keppra] 750 mg PO BID 02/19/21 [History] Albuterol Inhaler [Ventolin Hfa Inhaler] 2 puff INHALATION RT-QID puff 02/25/21 [Rx] Psyllium Husk 100% [Metamucil Packet] 6 gm PO BID #1 packet 02/25/21 [Rx] Loratadine [Claritin] 10 mg PO DAILY 04/24/21 [History] Potassium Chloride ER [K-Dur 20] 40 meq PO DAILY 04/24/21 [History] Ipratropium-Albuterol Nebulize [Duoneb 0.5 mg-3 mg/3 ml Soln] 3 ml INHALATION RT-QID PRN 05/22/21 [History] Lidocaine 5% Patch [Lidoderm 5% Patch] 1 patch TRANSDERM DAILY PRN 05/22/21 [History] polyethylene glycoL 3350 [Miralax] 17 gm PO DAILY PRN 05/22/21 [History] predniSONE 10 mg PO DAILY 05/22/21 [History] Aspirin 81 mg PO DAILY #30 chew 05/26/21 [Rx] Furosemide [Lasix] 40 mg PO DAILY #30 tablet 06/10/21 [Rx] HYDROcodone/APAP 10-325MG [[place] 10-325] 1 each PO Q4H PRN #16 tab 06/10/21 [Rx] Magnesium Oxide [Mag-Ox] 400 mg PO BID #0 06/10/21 [Rx] Follow up Appointment(s)/Referral(s): [facility], [NON-STAFF] - As Needed Thee Wyman DO [Doctor of Osteopathic Medicine] - 06/24/21 11:20 am Gavin Riggs [Primary Care Provider] - 06/15/21 8:30 am Discharge Disposition: TRANSFER TO SNF/ECF
--- NOTE | 2021-06-13 10:41 | OP ---
OPERATIVE REPORT DATE OF SERVICE: 06/07/2021 PREOPERATIVE DIAGNOSIS: T12, L2, L3 and L5 vertebral compression fractures. POSTOPERATIVE DIAGNOSIS: T12, L2, L3 and L5 vertebral compression fractures. PROCEDURES PERFORMED: L3 kyphoplasty with biopsy and L5 kyphoplasty. ANESTHESIA: Sedation with local. ESTIMATED BLOOD LOSS: 20. FLUIDS: 1000 mL. URINE OUTPUT: 50 mL. DISPOSITION: Stable to PACU. INDICATIONS FOR PROCEDURE: This is a 66-year-old female who has sustained several falls from standing onto buttocks in the past few weeks. Over the past week and a half she became very weak and had difficulty with ambulation secondary to her back pain. She was seen by her primary care doctor, who treated her with an LSO brace after x-rays which show possible compression fractures. She has been intolerable of this brace and she was unable to ambulate, so she came to the hospital. She was seen and evaluated in the hospital and she continued to have back pain. She was unable to mobilize with her brace, pain control or physical therapy, and so it was discussed at this time doing kyphoplasties after imaging. CT scan as well as MRIs were reviewed and demonstrated vertebral compression fractures at multiple levels with acute compression fractures noted at L3 and L5. I discussed with the patient conservative versus surgical management. She elected for surgical management at this time, as she has failed conservative measures. The patient was seen and evaluated preoperatively. All preoperative protocols were followed. We discussed the risks and benefits as outlined in the risk review, including risk of bleeding, infection, damage to surrounding tissue, risk of reoperation, risk of anesthesia up to and including . She was willing to assume these risks and all the risks of surgery. Site was marked. The patient was given a weight-based dose of antibiotics preoperatively and cleared by Anesthesia for operation. OPERATIVE COURSE: The patient was transferred to the operative suite and she was placed prone on a Ham-Timothy frame. All bony prominences were padded accordingly. SCDs were placed on bilateral lower extremities. The patient had a [place]irano from the floor. She was then drifted off to sedation by the department of anesthesia. Once adequate anesthesia had been obtained, the patient's lumbar spine was evaluated and bio-marked with C- arm for appropriate level of visualization. We then prepped and draped the lumbar spine in normal sterile fashion. Time-out was performed. All parties were in agreement with the procedure to be performed. We first started at the L3 vertebral body, where under AP and lateral fluoroscopy we were able to place Jamshidi needles through the pedicles of L3 into the body of L3. Once in good position, we then placed the biopsy needle through these Jamshidi needles, obtained biopsies of the L3 vertebral body. We then placed a drill followed by a curette through each side of these under AP and lateral fluoroscopy. Kyphoplasty balloons were then inserted bilaterally and inflated. This allowed for good reduction of the L3 vertebral body under AP and lateral fluoroscopy. Once this was performed, we placed cement into the L3 bodies using AP and lateral fluoroscopy. There was no cement extravasation. There was no cement myelogram. There was no cement arteriogram or angiogram. Once this was accomplished and there was good cement fill, the Jamshidi needles were removed under lateral fluoroscopy bilaterally, which showed good cement fill. AP also showed good cement fill with no extravasation. We then turned our attention to the L5 vertebral body, where this was essentially repeated only on the right-hand side, as this was the most collapsed side for the patient, and we wanted to decrease time in the operating room, as she was becoming uncomfortable with just sedation. We did locally anesthetize the area at L3 and L5 prior to placing Jamshidi needles. In the L5 region, we placed a Jamshidi needle only on the right-hand side and performed the same procedure as described above of the L3 vertebral body. Once the cement was in place under AP and lateral fluoroscopy and good fill had been obtained in the L5 vertebral body, the Jamshidi needle was removed. Final x-rays were taken which showed good cement placement, no extravasation and good reduction. We then irrigated out the areas and simple stitches were placed in the wounds and these were then sterilely dressed after cleaning with Band-Aids. The patient was awakened by Department of Anesthesia, having tolerated the procedure very well with no complications. She was transferred to the postoperative care unit in stable condition. MMODL / IJN: [id number] / BECKIE
== END 2021-06-10 11:07 | DRG 853 ==
LOC: EC 09:25 → 4SSUR 12:25
PROVIDERS: ADMIT Internal Medicine; ATTEND Internal Medicine
PROC: 0QB00ZX Excision of Lumbar Vertebra, Open Approach, Diagnostic (ICD-10-PCS; 2021-06-07)
PROC: 0QS03ZZ Reposition Lumbar Vertebra, Percutaneous Approach (ICD-10-PCS; 2021-06-07)
PROC: 0QU03JZ Supplement Lumbar Vertebra with Synthetic Substitute, Percutaneous Approach (ICD-10-PCS; principal; 2021-06-07 07:30)
DX: A41.9 Sepsis, unspecified organism (principal); J18.9 Pneumonia, unspecified organism; M48.56XA Collapsed vertebra, not elsewhere classified, lumbar region, initial encounter for fracture; N39.0 Urinary tract infection, site not specified; J44.0 Chronic obstructive pulmonary disease with (acute) lower respiratory infection; M48.54XA Collapsed vertebra, not elsewhere classified, thoracic region, initial encounter for fracture; Z86.718 Personal history of other venous thrombosis and embolism; I10 Essential (primary) hypertension; Z79.82 Long term (current) use of aspirin; Z85.44 Personal history of malignant neoplasm of other female genital organs; Z99.81 Dependence on supplemental oxygen; M06.9 Rheumatoid arthritis, unspecified; G25.81 Restless legs syndrome; Z86.14 Personal history of Methicillin resistant Staphylococcus aureus infection; Z87.891 Personal history of nicotine dependence; F90.9 Attention-deficit hyperactivity disorder, unspecified type; Z80.0 Family history of malignant neoplasm of digestive organs; Z80.49 Family history of malignant neoplasm of other genital organs; Z20.822 Contact with and (suspected) exposure to COVID-19; E87.6 Hypokalemia; Z74.01 Bed confinement status; Z79.52 Long term (current) use of systemic steroids; G89.29 Other chronic pain; G47.33 Obstructive sleep apnea (adult) (pediatric); G40.909 Epilepsy, unspecified, not intractable, without status epilepticus; M81.0 Age-related osteoporosis without current pathological fracture; R26.2 Difficulty in walking, not elsewhere classified; Y95 Nosocomial condition; E83.42 Hypomagnesemia; N13.9 Obstructive and reflux uropathy, unspecified; F41.9 Anxiety disorder, unspecified; Z79.899 Other long term (current) drug therapy; Z82.5 Family history of asthma and other chronic lower respiratory diseases; Z85.038 Personal history of other malignant neoplasm of large intestine; Z90.710 Acquired absence of both cervix and uterus; Z90.721 Acquired absence of ovaries, unilateral; Z96.651 Presence of right artificial knee joint
CPT/HCPCS: 36415; 71045; 71046; 72072; 72100; 72128; 72131; 72148; 80048; 80053; 81001; 83605; 83735; 84132; 84145; 85025; 85610; 85730; 87040; 87086; 87635; 88307; 88311; 93005; 94640; 94760; 96360; 96361; 99285

== ENCOUNTER 2021-07-03 23:51 | Observation (INO) | payer MEDICARE, OTHER ==
[2021-07-03] MEDS ORDERED: IPRATROPIUM-ALBUTEROL 3 ML NEB INHALATION STA (23:53)
[2021-07-03] MEDS ORDERED: SODIUM CHLORIDE 0.9% 1,000 ML IV STA (23:53)
--- NOTE | 2021-07-04 00:26 | ED ---
SOB HPI - General Chief Complaint: Shortness of Breath Stated Complaint: DOMI Time Seen by Provider: 07/03/21 23:52 Source: patient, EMS, RN notes reviewed, old records reviewed Mode of arrival: EMS Limitations: no limitations - History of Present Illness Initial Comments: This is a 66-year-old female to the emergency department today. Patient presents today for evaluation regards to severe shortness of breath known history of severe COPD with multiple medical comorbidities. Recent hospitalization for back pain and back fractures on pain control, no surgery. No chest pain currently. Patient has no fevers, no other complaints MD Complaint: shortness of breath, cough -: days(s) Quality: sharp Consistency: constant Improves With: oxygen, bronchodilators Worsens With: exertion, movement, coughing, inspiration Known History Of: COPD, asthma Context: recent URI, recent illness Associated Symptoms: denies other symptoms Treatments Prior to Arrival: oxygen, bronchodilator - Related Data Home Medications Medication Instructions Recorded Confirmed rOPINIRole HCL [Requip] 0.5 mg PO HS 03/24/20 06/04/21 Cholecalciferol [Vitamin D3 (25 25 mcg PO DAILY 04/08/20 06/04/21 Mcg = 1000 Iu)] Melatonin 3 mg PO HS PRN 10/11/20 06/04/21 Fluticasone Nasal [place] [Flonase 1 spr EA NOSTRIL DAILY 12/30/20 06/04/21 Nasal [place]] Multivitamins, Thera [Multivitamin 1 tab PO DAILY 12/30/20 06/04/21 (formulary)] Pantoprazole Sodium [Protonix] 40 mg PO DAILY 12/30/20 06/04/21 Theophylline 24 Hour [Sekou-24] 400 mg PO HS 12/30/20 06/04/21 Budesonide [Pulmicort] 1 mg INHALATION RT-BID 01/15/21 06/04/21 DULoxetine HCL [Cymbalta] 30 mg PO DAILY 01/15/21 06/04/21 Verapamil [Isoptin] 80 mg PO AC-TID 01/15/21 06/04/21 Montelukast [Singulair] 10 mg PO HS 02/19/21 06/04/21 levETIRAcetam [Keppra] 750 mg PO BID 02/19/21 06/04/21 Loratadine [Claritin] 10 mg PO DAILY 04/24/21 06/04/21 Potassium Chloride ER [K-Dur 20] 40 meq PO DAILY 04/24/21 06/04/21 Ipratropium-Albuterol Nebulize 3 ml INHALATION RT-QID PRN 05/22/21 06/04/21 [Duoneb 0.5 mg-3 mg/3 ml Soln] Lidocaine 5% Patch [Lidoderm 5% 1 patch TRANSDERM DAILY PRN 05/22/21 06/04/21 Patch] polyethylene glycoL 3350 [Miralax] 17 gm PO DAILY PRN 05/22/21 06/04/21 predniSONE 10 mg PO DAILY 05/22/21 06/04/21 Previous Rx's Medication Instructions Recorded Albuterol Inhaler [Ventolin Hfa 2 puff INHALATION RT-QID puff 02/25/21 Inhaler] Psyllium Husk 100% [Metamucil 6 gm PO BID #1 packet 02/25/21 Packet] Aspirin 81 mg PO DAILY #30 chew 05/26/21 Furosemide [Lasix] 40 mg PO DAILY #30 tablet 06/10/21 HYDROcodone/APAP 10-325MG [[place] 1 each PO Q4H PRN #16 tab 06/10/21 10-325] Magnesium Oxide [Mag-Ox] 400 mg PO BID #0 06/10/21 Allergies Allergy/AdvReac Type Severity Reaction Status Date / Time infliximab [From Remicade] Allergy Dyspnea/HIV Verified 05/22/21 17:07 ES propoxyphene [From Darvon] Allergy Rash/Hives Verified 05/22/21 17:07 adhesive tape AdvReac "is hard Verified 05/22/21 17:07 on skin" Review of Systems ROS Statement: Those systems with pertinent positive or pertinent negative responses have been documented in the HPI. ROS Other: All systems not noted in ROS Statement are negative. Past Medical History Past Medical History: Cancer, COPD, Deep Vein Thrombosis (DVT), Hypertension, Pneumonia, Rheumatoid Arthritis (RA) Additional Past Medical History / Comment(s): hearing difficulty currently, colitis, osteopenia, hx cancer of appendix, uses oxygen 3L continuous. chronic back pain, restless leg, COPD. 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 Colonoscopy 2017. pain procedure at [facility] with Dr Ty. TAD with unilateral oophorectomy 1983. Partial vulvectomy in 2000. Past Anesthesia/Blood Transfusion Reactions: No Reported Reaction Additional Past Anesthesia/Blood Transfusion Reaction / Comment(s): states is not supposed to have general anesthesia R/T awaiting lung transplant Past Psychological History: ADD/ADHD, Anxiety Smoking Status: Former smoker Past Alcohol Use History: None Reported Past Drug Use History: None Reported - Past Family History Father Family Medical History: Cancer, COPD Additional Family Medical History / Comment(s): COLON cancer Mother Family Medical History: Cancer Additional Family Medical History / Comment(s): ESOPHAGUS cancer Sister(s) Family Medical History: Cancer Additional Family Medical History / Comment(s): CERVICAL cancer General Exam General appearance: alert, in no apparent distress Head exam: Present: atraumatic, normocephalic, normal inspection Eye exam: Present: normal appearance, PERRL, EOMI. Absent: scleral icterus, conjunctival injection, periorbital swelling ENT exam: Present: normal exam, mucous membranes moist Neck exam: Present: normal inspection. Absent: tenderness, meningismus, lymphadenopathy Respiratory exam: Present: normal lung sounds bilaterally. Absent: respiratory distress, wheezes, rales, rhonchi, stridor Cardiovascular Exam: Present: regular rate, normal rhythm, normal heart sounds. Absent: systolic murmur, diastolic murmur, rubs, gallop, clicks GI/Abdominal exam: Present: soft, normal bowel sounds. Absent: distended, tenderness, guarding, rebound, rigid Extremities exam: Present: normal inspection, full ROM, normal capillary refill. Absent: tenderness, pedal edema, joint swelling, calf tenderness Back exam: Present: normal inspection Neurological exam: Present: alert, oriented X3, CN II-XII intact Psychiatric exam: Present: normal affect, normal mood Skin exam: Present: warm, dry, intact, normal color. Absent: rash Course Vital Signs 07/04/21 07/04/21 00:01 00:21 Temperature 99 F Pulse Rate 92 80 Respiratory 22 Rate Blood Pressure 145/66 O2 Sat by Pulse 96 Oximetry - Reevaluation(s) Reevaluation #1: 07/04/21 00:49 Medical record is reviewed Reevaluation #2: 07/04/21 00:57 No improvement in breathing treatment here in the ER Reevaluation #3: 07/04/21 00:58 Patient still feels weak and short of breath - Consultations Consultation #1: Spoke with sound who agree to admit this patient Medical Decision Making - Medical Decision Making 58 female to be admitted for severe COPD exacerbation with new anemia hemoglobin drop of 4 points. Patient be admitted for evaluation of continued shortness of breath because of anemia - Lab Data Result diagrams: 07/04/21 00:33 Lab Results 07/04/21 07/04/21 Range/Units 00:33 00:33 WBC 15.7 H (3.8-10.6) k/uL RBC 3.37 L (3.80-5.40) m/uL Hgb 8.6 L D (11.4-16.0) gm/dL Hct 28.2 L (34.0-46.0) % MCV 83.6 (80.0-100.0) fL MCH 25.5 (25.0-35.0) pg MCHC 30.5 L (31.0-37.0) g/dL RDW 19.3 H (11.5-15.5) % Plt Count 392 (150-450) k/uL MPV 7.2 Neutrophils % 74 % Lymphocytes % 18 % Monocytes % 4 % Eosinophils % 2 % Basophils % 0 % Neutrophils # 11.5 H (1.3-7.7) k/uL Lymphocytes # 2.8 (1.0-4.8) k/uL Monocytes # 0.6 (0-1.0) k/uL Eosinophils # 0.3 (0-0.7) k/uL Basophils # 0.0 (0-0.2) k/uL Hypochromasia Marked Poikilocytosis Slight Anisocytosis Slight Urine Color Yellow Urine Appearance Cloudy H (Clear) Urine pH 6.5 (5.0-8.0) Ur Specific [place]er 1.021 (1.001-1.035) Urine Protein Trace H (Negative) Urine Glucose (UA) Negative (Negative) Urine Ketones Negative (Negative) Urine Blood Negative (Negative) Urine Nitrite Negative (Negative) Urine Bilirubin Negative (Negative) Urine Urobilinogen <2.0 (<2.0) mg/dL Ur Leukocyte Esterase Large H (Negative) Urine RBC 5 (0-5) /hpf Urine WBC 8 H (0-5) /hpf Ur Squamous Epith Cells 13 H (0-4) /hpf Urine Bacteria Rare H (None) /hpf Urine Mucus Rare H (None) /hpf - EKG Data -: EKG Interpreted by Me (EKG is sinus rhythm 94 CT 122 QRS 64 QTc 407) - Radiology Data Radiology results: report reviewed (Chest x-rays negative for acute disease), image reviewed Disposition Clinical Impression: COPD with acute exacerbation, Acute exacerbation of chronic obstructive airways disease, Anemia, Weakness Disposition: ADMITTED IP TO THIS HOSP Condition: Fair Is patient prescribed a controlled substance at d/c from ED?: No Referrals: Gavin Riggs [Primary Care Provider] - 1-2 days
[2021-07-04] MEDS ORDERED: NALOXONE 0.4 MG/ML 1 ML VIAL IV PRN (00:39)
[2021-07-04] MEDS ORDERED: ONDANSETRON 4 MG/2 ML VIAL IVP PRN (00:39)
[2021-07-04] MEDS ORDERED: MORPHINE SULFATE 4 MG/ML SYRINGE IV PRN (00:39)
[2021-07-04 00:43] LABS: Anisocytosis Slight; Basophils % (A) 0 %; Eosinophils # (A) 0.3 k/uL (0-0.7); Eosinophils % (A) 2 %; HCT 28.2 % (34.0-46.0); Hypochromasia Marked; Lymphocytes # (A) 2.8 k/uL (1.0-4.8); Lymphocytes % (A) 18 %; MCH 25.5 pg (25.0-35.0); MCHC 30.5 g/dL (31.0-37.0); MCV 83.6 fL (80.0-100.0); Mean Platelet Volume 7.2; Monocytes # (A) 0.6 k/uL (0-1.0); Monocytes % (A) 4 %; Neutrophils # (A) 11.5 k/uL (1.3-7.7); Neutrophils % (A) 74 %; Platelet Count 392 k/uL (150-450); Poikilocytosis Slight; RBC 3.37 m/uL (3.80-5.40); RDW 19.3 % (11.5-15.5); WBC 15.7 k/uL (3.8-10.6)
--- NOTE | 2021-07-04 00:44 | XR ---
EXAMINATION TYPE: XR chest 1V portable DATE OF EXAM: 07/04/2021 COMPARISON: 06/05/2021 HISTORY: Single view TECHNIQUE: FINDINGS: There is some coarse reticular nodular density in the right upper lobe and left lower lobe. There is no heart failure. Thoracic aorta is atheromatous. There is no pleural effusion. Bony thorax appears intact. IMPRESSION: Chronic bilateral pulmonary infiltrates slightly increased compared to old exams. This is more likely related to scarring. No heart failure seen.
[2021-07-04 00:48] LABS: HGB 8.6 gm/dL (11.4-16.0)
[2021-07-04 00:51] LABS: Appearance,Urine Cloudy (Clear); Bacteria,Urine Rare /hpf; Bilirubin,Urine Negative (Negative); Blood,Urine Negative (Negative); Color,Urine Yellow; Glucose,Urine (UA) Negative (Negative); Ketones,Urine Negative (Negative); Leukocyte Esterase,Urine Large (Negative); Mucus,Urine Rare /hpf; Nitrite,Urine Negative (Negative); PH, Urine 6.5 (5.0-8.0); Protein,Urine Trace (Negative); RBC,Urine 5 /hpf (0-5); Specific Gravity,Urine 1.021 (1.001-1.035); Squamous Epithelial Cell,Urine 13 /hpf (0-4); Urobilinogen,Urine <2.0 mg/dL (<2.0); WBC,Urine 8 /hpf (0-5)
[2021-07-04 01:05] LABS: ALT 17 U/L (4-34); AST 22 U/L (14-36); African American GFR (CKD) >90 (>60 ml/min/1.73 sqM); Albumin 3.3 g/dL (3.5-5.0); Alkaline Phosphatase 100 U/L (38-126); Anion Gap 3 mmol/L; Blood Urea Nitrogen 15 mg/dL (7-17); Calcium 8.7 mg/dL (8.4-10.2); Carbon Dioxide 31 mmol/L (22-30); Chloride 102 mmol/L (98-107); Glucose 115 mg/dL (74-99); Magnesium 2.1 mg/dL (1.6-2.3); Non-African American GFR(CKD) >90 (>60 ml/min/1.73 sqM); Potassium 3.8 mmol/L (3.5-5.1); Sodium 136 mmol/L (137-145); Total Bilirubin 0.2 mg/dL (0.2-1.3); Total Protein 5.6 g/dL (6.3-8.2)
[2021-07-04 01:07] LABS: INR 0.9 (<1.2); Prothrombin Time 9.4 sec (9.0-12.0)
[2021-07-04 01:09] LABS: Partial Thromboplastin Time 20.8 sec (22.0-30.0)
[2021-07-04] MEDS: SODIUM CHLORIDE 0.9% 1,000 ML IV SCH ×2 (02:39→19:14)
--- NOTE | 2021-07-04 04:58 | P.HPIM ---
History of Present Illness H&P Date: 07/04/21 Chief Complaint: Shortness of breath 66-year-old female with COPD, seizure disorder, on secondary to compression fracture of thoracic vertebrae Patient seems to be upset she is very hard of hearing she has not brought her hearing aids and she provides very limited history. She reports some back pain she is upset that she couldn't get anything for it and asking for some pain medications. She also adds that she's been having some progressive trouble breathing over the past few days she doesn't specify exactly how long she says that she's been having difficulties ambulating due to exertional dyspnea she denies any hemoptysis denies any fevers or chills. Patient become very upset and I couldn't continue the interview I asked for permission to do physical examination approved ED noted that her hemoglobin dropped by 4 g however when I looked at her trend seems like her hemoglobin level is around her baseline she has only one reading recently that was elevated at 12 g otherwise she ranges between 9-10, currently hemoglobin 8.6 patient denies any GI bleeding Patient has recently been admitted for times over the month of May for intractable back pain and the second admission for trouble breathing with underlying pneumonia Review of Systems Limited due to patient's hearing difficulties and frustration with pain control Past Medical History Past Medical History: Cancer, COPD, Deep Vein Thrombosis (DVT), Hearing Disorder / Deafness, Hypertension, Pneumonia, Rheumatoid Arthritis (RA) Additional Past Medical History / Comment(s): hearing difficulty currently, c olitis, osteopenia, hx cancer of appendix, uses oxygen 3L continuous. chronic back pain, restless leg, COPD. 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 Colonoscopy 2017. pain procedure at [facility] with Dr Ty. [facility] with unilateral oophorectomy 1983. Partial vulvectomy in 2000. Past Anesthesia/Blood Transfusion Reactions: No Reported Reaction Additional Past Anesthesia/Blood Transfusion Reaction / Comment(s): states is not supposed to have general anesthesia R/T awaiting lung transplant Past Psychological History: ADD/ADHD, Anxiety Smoking Status: Former smoker Past Alcohol Use History: Occasional Additional Past Alcohol Use History / Comment(s): Pt states she started smoking at age 11 and quit 22 years ago. She states she smoked 1-2ppd. She states she dr barbara occasionally. Past Drug Use History: None Reported - Past Family History Father Family Medical History: Cancer, COPD Additional Family Medical History / Comment(s): COLON cancer Mother Family Medical History: Cancer Additional Family Medical History / Comment(s): ESOPHAGUS cancer Sister(s) Family Medical History: Cancer Additional Family Medical History / Comment(s): CERVICAL cancer Medications and Allergies Home Medications Medication Instructions Recorded Confirmed Type rOPINIRole HCL [Requip] 0.5 mg PO HS 03/24/20 06/04/21 History Cholecalciferol [Vitamin D3 (25 25 mcg PO DAILY 04/08/20 06/04/21 History Mcg = 1000 Iu)] Melatonin 3 mg PO HS PRN 10/11/20 06/04/21 History Fluticasone Nasal [place] [Flonase 1 spr EA NOSTRIL DAILY 12/30/20 06/04/21 History Nasal [place]] Multivitamins, Thera [Multivitamin 1 tab PO DAILY 12/30/20 06/04/21 History (formulary)] Pantoprazole Sodium [Protonix] 40 mg PO DAILY 12/30/20 06/04/21 History Theophylline 24 Hour [Sekou-24] 400 mg PO HS 12/30/20 06/04/21 History Budesonide [Pulmicort] 1 mg INHALATION RT-BID 01/15/21 06/04/21 History DULoxetine HCL [Cymbalta] 30 mg PO DAILY 01/15/21 06/04/21 History Verapamil [Isoptin] 80 mg PO AC-TID 01/15/21 06/04/21 History Montelukast [Singulair] 10 mg PO HS 02/19/21 06/04/21 History levETIRAcetam [Keppra] 750 mg PO BID 02/19/21 06/04/21 History Albuterol Inhaler [Ventolin Hfa 2 puff INHALATION RT-QID puff 02/25/21 06/04/21 Rx Inhaler] Psyllium Husk 100% [Metamucil 6 gm PO BID #1 packet 04/30/21 08/07/21 Rx Packet] Loratadine [Claritin] 10 mg PO DAILY 04/24/21 06/04/21 History Potassium Chloride ER [K-Dur 20] 40 meq PO DAILY 04/24/21 06/04/21 History Ipratropium-Albuterol Nebulize 3 ml INHALATION RT-QID PRN 05/22/21 06/04/21 History [Duoneb 0.5 mg-3 mg/3 ml Soln] Lidocaine 5% Patch [Lidoderm 5% 1 patch TRANSDERM DAILY PRN 05/22/21 06/04/21 History Patch] polyethylene glycoL 3350 [Miralax] 17 gm PO DAILY PRN 05/22/21 06/04/21 History predniSONE 10 mg PO DAILY 05/22/21 06/04/21 History Aspirin 81 mg PO DAILY #30 chew 05/26/21 06/04/21 Rx Furosemide [Lasix] 40 mg PO DAILY #30 tablet 06/10/21 Rx HYDROcodone/APAP 10-325MG [[place] 1 each PO Q4H PRN #16 tab 06/10/21 Rx 10-325] Magnesium Oxide [Mag-Ox] 400 mg PO BID #0 06/10/21 06/04/21 Rx Allergies Allergy/AdvReac Type Severity Reaction Status Date / Time infliximab [From Remicade] Allergy Dyspnea/HIV Verified 05/22/21 17:07 ES propoxyphene [From Darvon] Allergy Rash/Hives Verified 05/22/21 17:07 adhesive tape AdvReac "is hard Verified 05/22/21 17:07 on skin" Physical Exam Vitals: Vital Signs Temp Pulse Pulse Resp BP BP Pulse Ox 07/04/21 02:46 146/64 07/04/21 02:00 98.4 F 61 20 171/62 100 07/04/21 00:21 80 07/04/21 00:01 99 F 92 22 145/66 96 Intake and Output 07/03/21 07/03/21 07/04/21 14:59 22:59 06:59 Other: Voiding Method Bedpan Weight 72.121 kg Constitutional: Patient seems to be anxious and frustrated asking for some breathing treatments and pain control Eyes: Anicteric sclerae, moist conjunctiva, Pupils equal round reactive to light ENMT: NC/AT Oropharynx clear, no erythema, or exudates Neck: Supple, no masses, or JVD No carotid bruits No thyromegaly Lungs: Decreased breath sounds throughout with prolonged expiratory phase a nd wheezing Clear to percussion Patient using accessory muscles of respiration Cardiovascular: Heart tachycardic in rate and rhythm, No murmurs, gallops, or rubs No peripheral edema Abdominal: Soft Nontender, no guarding, rebound or rigidity Abdomen moving with respiration Normoactive bowel sounds No hepatomegaly, No splenomegaly Skin: Normal temperature, tone, texture, turgor No induration No subcutaneous nodules No rash, lesions No ulcers Extremities: No digital cyanosis No clubbing Pedal pulses intact and symmetrical Radial pulses intact and symmetrical No calf tenderness Psychiatric: Alert and oriented to person, place Neuro deferred patient could not cooperate with neurologic exam however she is moving all her extremities spontaneously Lymphatics: no palpable cervical or supraclavicular , lymph nodes Results CBC & Chem 7: 07/04/21 00:33 07/04/21 00:33 Labs: Abnormal Lab Results - Last 24 Hours (Table) 07/04/21 07/04/21 07/04/21 Range/Units 00:33 00:33 00:33 WBC 15.7 H (3.8-10.6) k/uL RBC 3.37 L (3.80-5.40) m/uL Hgb 8.6 L D (11.4-16.0) gm/dL Hct 28.2 L (34.0-46.0) % MCHC 30.5 L (31.0-37.0) g/dL RDW 19.3 H (11.5-15.5) % Neutrophils # 11.5 H (1.3-7.7) k/uL APTT 20.8 L (22.0-30.0) sec Sodium 136 L (137-145) mmol/L Carbon Dioxide 31 H (22-30) mmol/L Glucose 115 H (74-99) mg/dL Total Protein 5.6 L (6.3-8.2) g/dL Albumin 3.3 L (3.5-5.0) g/dL Urine Appearance (Clear) Urine Protein (Negative) Ur Leukocyte Esterase (Negative) Urine WBC (0-5) /hpf Ur Squamous Epith Cells (0-4) /hpf Urine Bacteria (None) /hpf Urine Mucus (None) /hpf 07/04/21 Range/Units 00:33 WBC (3.8-10.6) k/uL RBC (3.80-5.40) m/uL Hgb (11.4-16.0) gm/dL Hct (34.0-46.0) % MCHC (31.0-37.0) g/dL RDW (11.5-15.5) % Neutrophils # (1.3-7.7) k/uL APTT (22.0-30.0) sec Sodium (137-145) mmol/L Carbon Dioxide (22-30) mmol/L Glucose (74-99) mg/dL Total Protein (6.3-8.2) g/dL Albumin (3.5-5.0) g/dL Urine Appearance Cloudy H (Clear) Urine Protein Trace H (Negative) Ur Leukocyte Esterase Large H (Negative) Urine WBC 8 H (0-5) /hpf Ur Squamous Epith Cells 13 H (0-4) /hpf Urine Bacteria Rare H (None) /hpf Urine Mucus Rare H (None) /hpf Thrombosis Risk Factor Assmnt - Choose All That Apply Each Factor Represents 1 point: Abnormal pulmonary function (COPD), Obesity (BMI >25) Each Risk Factor Represents 3 Points: History of DVT/PE Thrombosis Risk Factor Assessment Total Risk Factor Score: 5 Thrombosis Risk Factor Assessment Level: High Risk Assessment and Plan Assessment: Acute COPD exacerbation Supplemental oxygen as needed Oral systemic steroids Reading treatments as needed and [id number] Resume home inhalers, Singulair Pulmonary consult Check Covid Monitor vital signs Pulse oximetry Chronic conditions Seizure disorder resume Keppra Hypertension resume verapamil GI prophylaxis with PPI DVT prophylaxis with heparin subcu 3 times a day Monitor hemoglobin repeat CBC in the morning Patient denies any GI bleeding Anticipated length of stay more than 2 midnights Anticipated discharge to home Full code Chronic back pain secondary to thoracic vertebral fractures Continue with [place] when necessary morphine
[2021-07-04] MEDS: BUDESONIDE 1 MG/2 ML NEBU INHALATION SCH ×2 (06:54→21:19)
[2021-07-04] MEDS: IPRATROPIUM-ALBUTEROL 3 ML NEB INHALATION SCH ×4 (06:54→21:19)
[2021-07-04] MEDS ORDERED: VERAPAMIL 80 MG TAB PO SCH (07:30)
[2021-07-04] MEDS ORDERED: ALBUTEROL NEBULIZED 2.5 MG/3 ML INHALATION SCH (08:00)
[2021-07-04] MEDS: methylPREDNISolone SOD SUCCI 125 MG/2 ML VIAL IV SCH ×2 (08:47→15:50)
[2021-07-04] MEDS: HEPARIN SODIUM,PORCINE/PF 5,000 UNIT/0.5 ML SYRINGE SQ SCH ×2 (08:47→15:49)
[2021-07-04] MEDS: PANTOPRAZOLE 40 MG TABLET PO SCH (08:48)
[2021-07-04] MEDS: DULoxetine HCL 30 MG CAPSULE.DR PO SCH (08:48)
[2021-07-04] MEDS: guaiFENesin 600 MG TABLET.ER PO SCH ×2 (08:48→21:25)
[2021-07-04] MEDS: ASPIRIN 81 MG PO SCH (08:48)
[2021-07-04] MEDS ORDERED: predniSONE 20 MG TAB PO SCH ×2 (09:00)
[2021-07-04] MEDS ORDERED: polyethylene glycoL 3350 17 GM POWD.PACK PO PRN (10:25)
[2021-07-04] MEDS ORDERED: LIDOCAINE 5% PATCH TOPICAL PRN (10:25)
[2021-07-04] MEDS ORDERED: ACETAMINOPHEN TAB 325 MG TAB PO PRN (10:25)
--- NOTE | 2021-07-04 11:57 | P.CNPUL ---
History of Present Illness Consult date: 07/04/21 Requesting physician: Mayank Schaffer Reason for consult: dyspnea Chief complaint: Shortness of breath History of present illness: This is a pleasant 66-year-old female patient with known history of chronic hypoxic respiratory failure and COPD who was seeking lung transportation and she was activated on the transplant list in late on deactivated because of medical problems and comorbidities. Her FEV1 is 27% of predicted and she is on home oxygen and maintenance prednisone. She has been maintained on a combination of Perforomist and Pulmicort twice a day, and she takes Yupelri nebulized treatments once a day and albuterol around the clock in addition to treatments on an as needed basis. She has had multiple hospitalizations due to her COPD exacerbations. She presented here again yesterday with complaints of increasing shortness of breath. X-ray shows chronic bilateral pulmonary infiltrates slightly increased compared to previous on 06/05/2021. Most likely dental detail representative of scarring. No heart failure. White count 15.7. Hemoglobin 8.6. Sodium 136. Potassium 3.8. Creatinine 0.55. Glucose 1:15. Troponin negative times one. ProBNP 273. [place] virus not detected. She is seen today in consultation on the regular medical floor. She is currently resting comfortably in bed. On BiPAP at 10/5 and 30% FiO2. She has 0.9 normal saline at 100 ML's per hour. She has been initiated on DuoNeb inhalations, Pulmicort and Perforomist inhalations, theophylline, Singulair, IV Solu-Medrol. Review of Systems REVIEW OF SYSTEMS: CONSTITUTIONAL: Denies any recent significant weight loss or weight gain. EYES: Denies change in vision. EARS, NOSE, MOUTH, THROAT: Denies headaches, denies sore throat. CARDIOVASCULAR: Denies chest pain, palpitations or syncopal episodes. RESPIRATORY: Positive for shortness of breath, cough, congestion no hemoptysis. GASTROINTESTINAL: Denies change in appetite, denies abdominal pain GENITOURINARY: Denies hematuria, denies infections. MUSKULOSKELETAL: Denies pain, denies swelling. INTEGUMENTARY: Denies rash, denies eczema. NEUROLOGICAL: Denies recent memory loss, no recent seizure activity. PSYCHIATRIC: Denies anxiety, denies depression. HEMATOLOGIC/LYMPHATIC: Denies anemia, denies enlarged lymph nodes. Past Medical History Past Medical History: Cancer, COPD, Deep Vein Thrombosis (DVT), Hearing Disorder / Deafness, Hypertension, Pneumonia, Rheumatoid Arthritis (RA) Additional Past Medical History / Comment(s): hearing difficulty currently, colitis, osteopenia, hx cancer of appendix, uses oxygen 3L continuous. chronic back pain, restless leg, COPD. 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 Colonoscopy 2016. pain procedure at [facility] with Dr Ty. TAD with unilateral oophorectomy 1983. Partial vulvectomy in 2000. Past Anesthesia/Blood Transfusion Reactions: No Reported Reaction Additional Past Anesthesia/Blood Transfusion Reaction / Comment(s): states is not supposed to have general anesthesia R/T awaiting lung transplant Past Psychological History: ADD/ADHD, Anxiety Smoking Status: Former smoker Past Alcohol Use History: Occasional Additional Past Alcohol Use History / Comment(s): Pt states she started smoking at age 11 and quit 22 years ago. She states she smoked 1-2ppd. She states she drinks occasionally. Past Drug Use History: None Reported - Past Family History Father Family Medical History: Cancer, COPD Additional Family Medical History / Comment(s): COLON cancer Mother Family Medical History: Cancer Additional Family Medical History / Comment(s): ESOPHAGUS cancer Sister(s) Family Medical History: Cancer Additional Family Medical History / Comment(s): CERVICAL cancer Medications and Allergies Home Medications Medication Instructions Recorded Confirmed Type rOPINIRole HCL [Requip] 0.5 mg PO HS 03/24/20 07/04/21 History Cholecalciferol [Vitamin D3 (25 25 mcg PO DAILY 04/08/20 07/04/21 History Mcg = 1000 Iu)] Fluticasone Nasal [place] [Flonase 1 spr EA NOSTRIL DAILY 12/30/20 07/04/21 History Nasal [place]] Multivitamins, Thera [Multivitamin 1 tab PO DAILY 12/30/20 07/04/21 History (formulary)] Pantoprazole Sodium [Protonix] 40 mg PO DAILY 12/30/20 07/04/21 History DULoxetine HCL [Cymbalta] 30 mg PO DAILY 01/15/21 07/04/21 History Montelukast [Singulair] 10 mg PO HS 02/19/21 07/04/21 History Albuterol Inhaler [Ventolin Hfa 2 puff INHALATION RT-QID puff 02/25/21 07/04/21 Rx Inhaler] Psyllium Husk 100% [Metamucil 6 gm PO BID #1 packet 02/25/21 07/04/21 Rx Packet] Loratadine [Claritin] 10 mg PO DAILY 04/24/21 07/04/21 History Potassium Chloride ER [K-Dur 20] 40 meq PO DAILY 04/24/21 07/04/21 History Ipratropium-Albuterol Nebulize 3 ml INHALATION RT-QID PRN 05/22/21 07/04/21 History [Duoneb 0.5 mg-3 mg/3 ml Soln] Lidocaine 5% Patch [Lidoderm 5% 1 patch TRANSDERM DAILY PRN 05/22/21 07/04/21 History Patch] polyethylene glycoL 3350 [Miralax] 17 gm PO DAILY PRN 05/22/21 07/04/21 History Aspirin 81 mg PO DAILY #30 chew 05/26/21 07/04/21 Rx Furosemide [Lasix] 40 mg PO DAILY #30 tablet 06/10/21 07/04/21 Rx Magnesium Oxide [Mag-Ox] 400 mg PO BID #0 06/10/21 07/04/21 Rx Acetaminophen [Tylenol Arthritis] 650 mg PO Q12H PRN 07/04/21 07/04/21 History Ferrous Sulfate [Feosol] 325 mg PO DAILY 07/04/21 07/04/21 History HYDROcodone/APAP 10-325MG [[place] 1 tab PO Q6H PRN 07/04/21 07/04/21 History 10-325] Theophylline 24 Hour [[place]-24] 200 mg PO BID 07/04/21 07/04/21 History Verapamil HCl [Calan] 120 mg PO TID 07/04/21 07/04/21 History methocarbamoL [Methocarbamol] 500 mg PO TID 07/04/21 07/04/21 History predniSONE 5 mg PO DAILY 07/04/21 07/04/21 History Allergies Allergy/AdvReac Type Severity Reaction Status Date / Time infliximab [From Remicade] Allergy Dyspnea/HIV Verified 07/04/21 10:00 ES propoxyphene [From Darvon] Allergy Rash/Hives Verified 07/04/21 10:00 adhesive tape AdvReac "is hard Verified 07/04/21 10:00 on skin" Physical Exam Vitals: Vital Signs Temp Pulse Pulse Resp BP BP Pulse Ox 07/04/21 10:46 88 18 07/04/21 10:36 88 18 07/04/21 08:41 97.8 F 88 18 163/66 98 07/04/21 08:00 18 07/04/21 07:05 88 18 07/04/21 06:54 80 16 99 07/04/21 02:46 146/64 07/04/21 02:00 98.4 F 61 20 171/62 100 07/04/21 00:21 80 07/04/21 00:01 99 F 92 22 145/66 96 Intake and Output 07/03/21 07/04/21 07/04/21 22:59 06:59 14:59 Output Total 250 Balance -250 Output: Urine 250 Other: Voiding Method Bedpan Bedpan # Voids 1 Weight 72.121 kg GENERAL EXAM: Alert, pleasant 66-year-old female patient, on BiPAP 10/5 and 30% FiO2, comfortable in no apparent distress. HEAD: Normocephalic. EYES: Normal reaction of pupils, equal size. NOSE: Clear with pink turbinates. THROAT: No erythema or exudates. NECK: No masses, no JVD. CHEST: No chest wall deformity. LUNGS: Equal air entry with bibasilar crackles, few scattered rhonchi, end expiratory wheeze, diminished CVS: S1 and S2 normal with no audible murmur, regular rhythm. ABDOMEN: No hepatosplenomegaly, normal bowel sounds, no guarding or rigidity. SPINE: No scoliosis or deformity SKIN: No rashes CENTRAL NERVOUS SYSTEM: No focal deficits, tone is normal in all 4 extremities. EXTREMITIES: There is no peripheral edema. No clubbing, no cyanosis. Peripheral pulses are intact. Results - Laboratory Findings CBC and BMP: 07/04/21 00:33 07/04/21 00:33 PT/INR, D-dimer PT 9.4 sec (9.0-12.0) 07/04/21 00:33 INR 0.9 (<1.2) 07/04/21 00:33 Abnormal lab findings: Abnormal Labs 07/04/21 07/04/21 07/04/21 00:33 00:33 00:33 WBC 15.7 H RBC 3.37 L Hgb 8.6 L D Hct 28.2 L MCHC 30.5 L RDW 19.3 H Neutrophils # 11.5 H APTT 20.8 L Sodium 136 L Carbon Dioxide 31 H Glucose 115 H Total Protein 5.6 L Albumin 3.3 L Urine Appearance Urine Protein Ur Leukocyte Esterase Urine WBC Ur Squamous Epith Cells Urine Bacteria Urine Mucus 07/04/21 00:33 WBC RBC Hgb Hct MCHC RDW Neutrophils # APTT Sodium Carbon Dioxide Glucose Total Protein Albumin Urine Appearance Cloudy H Urine Protein Trace H Ur Leukocyte Esterase Large H Urine WBC 8 H Ur Squamous Epith Cells 13 H Urine Bacteria Rare H Urine Mucus Rare H - Diagnostic Findings Chest x-ray: image reviewed Assessment and Plan Assessment: 1 Acute on chronic hypoxic respiratory failure secondary to an acute exacerbation of chronic obstructive pulmonary disease FEV1 value 27% of predicted. Chest x-ray stable. Pro-calcitonin level pending. Patient is maintained on a combination of Yupelri Perforomist and Pulmicort neb last treatment on outpatient basis in addition to albuterol nebulized treatments. Currently she is deactivated from the lung transplant list due to her age and comorbidities. She has had multiple hospitalizations in the past for COPD exacerbation. She was also hospitalized for Covid 19 related pneumonia from which the patient recovered. COVID-19 screen negative this admission. 2 History of seizures previously on Keppra 3 History of Covid 19 related pneumonia, recovered 3 Severe COPD with chronic hypoxic and hypercapnic respiratory failure typically on oxygen 3 liters/min by nasal cannula 4 History of deep venous thrombosis. 5 History of hypertension. 6 History of rheumatoid arthritis. 7 History of colitis. 8 Osteopenia/osteoporosis. 9 Chronic back pain. 10 History of restless leg syndrome. 11 History of vulvar cancer. 12 Previous history of bowel resection. 13 Chronic pain syndrome 14 Previous history of urinary tract infection with MRSA and pseudomonas from February 2021, treated 13 Poor overall functional performance based on the above-mentioned multiple comorbidities Plan The patient was seen and evaluated by Dr. Cade Chest x-ray and labs reviewed Continue the current treatment plan Continue BiPAP 10/5 and 30% FiO2 as needed We will continue to follow and make further recommendations based on her clinical status I, the cosigning physician, performed a history & physical examination of the patient. Lungs sounds with crackles in the posterior bases, few scattered rh onchi, end expiratory wheeze, diminished. Maintaining O2 saturations in the 90s on BiPAP and FiO2 of 30% I discussed the assessment and plan of care with my nurse practitioner, Symone Ohara. I attest to the above consultation as dictated by her. Time with Patient: Greater than 30
[2021-07-04] MEDS ORDERED: ALBUTEROL HFA INHALER INHALATION SCH (12:00)
--- NOTE | 2021-07-04 12:00 | P.PN ---
Progress Note - Text Progress Note Date: 07/04/21 Patient seen and examined at bedside. Breathing somewhat better than yesterday. Still with back pain. States that they were taking her off of steroids at rehab in [place]. Was just discharged on . General: Non toxic , no distress, appears at stated age Derm: warm, dry Head: atraumatic, normocephalic, symmetric Cardiovascular: S1S2 reg, no murmur, positive posterior tibial pulse bilateral, Lungs: Diffuse wheezing bilateral, + 3 word conversational dyspnea Abdominal: soft, nontender to palpation, no guarding, no appreciable organomegaly Ext: no gross muscle atrophy, no edema, no contractures Neuro: CN II-XI grossly intact, no focal neuro deficits Psych: Alert, oriented, appropriate affect Acute exacerbation of COPD Home meds addressed Added Periformist Continue current care plan
[2021-07-04] MEDS: FUROSEMIDE 40 MG TAB PO SCH (12:46)
[2021-07-04] MEDS: LORATADINE 10 MG TAB PO SCH (12:46)
[2021-07-04] MEDS: PSYLLIUM HUSK 100% 6 GM PACKET PO SCH ×2 (12:47→21:24)
[2021-07-04] MEDS: VERAPAMIL 40 MG TAB PO SCH ×2 (15:49→21:35)
[2021-07-04] MEDS: methocarbamoL 500 MG TAB PO SCH ×2 (15:50→21:35)
[2021-07-04] MEDS: HYDROcodone/APAP 10-325MG 1 EACH TAB PO PRN (18:01)
[2021-07-04] MEDS: FORMOTEROL FUMARATE 20 MCG/2 ML NEBU INHALATION SCH (21:19)
[2021-07-04] MEDS: THEOPHYLLINE 24 HOUR 200 MG CAP.ER.24H PO SCH (21:24)
[2021-07-04] MEDS: MAGNESIUM OXIDE 400 MG TAB PO SCH (21:25)
[2021-07-04] MEDS: MONTELUKAST 10 MG TAB PO SCH (21:25)
[2021-07-05] MEDS: HEPARIN SODIUM,PORCINE/PF 5,000 UNIT/0.5 ML SYRINGE SQ SCH ×4 (00:33→21:35)
[2021-07-05] MEDS: methylPREDNISolone SOD SUCCI 125 MG/2 ML VIAL IV SCH ×2 (00:33→08:50)
[2021-07-05] MEDS: HYDROcodone/APAP 10-325MG 1 EACH TAB PO PRN ×5 (01:18→21:52)
[2021-07-05] MEDS: IPRATROPIUM-ALBUTEROL 3 ML NEB INHALATION SCH ×4 (08:21→19:56)
[2021-07-05] MEDS: FORMOTEROL FUMARATE 20 MCG/2 ML NEBU INHALATION SCH ×2 (08:22→19:56)
[2021-07-05] MEDS: BUDESONIDE 1 MG/2 ML NEBU INHALATION SCH ×2 (08:22→19:56)
[2021-07-05] MEDS: CHOLECALCIFEROL 25 MCG (1000 IU) TABLET PO SCH (08:50)
[2021-07-05] MEDS: MAGNESIUM OXIDE 400 MG TAB PO SCH ×2 (08:50→21:34)
[2021-07-05] MEDS: PANTOPRAZOLE 40 MG TABLET PO SCH (08:50)
[2021-07-05] MEDS: guaiFENesin 600 MG TABLET.ER PO SCH ×2 (08:50→21:34)
[2021-07-05] MEDS: FERROUS SULFATE 325 MG TAB PO SCH (08:50)
[2021-07-05] MEDS: POTASSIUM CHLORIDE ER 20 MEQ TAB.ER PO SCH (08:50)
[2021-07-05] MEDS: FUROSEMIDE 40 MG TAB PO SCH (08:50)
[2021-07-05] MEDS: ASPIRIN 81 MG PO SCH (08:50)
[2021-07-05] MEDS: LORATADINE 10 MG TAB PO SCH (08:50)
[2021-07-05] MEDS: MULTIVITAMINS, THERA 1 EACH TAB PO SCH (08:51)
[2021-07-05] MEDS: FLUTICASONE 50MCG/SPRAY NASAL 16GM EA NOSTRIL SCH (08:52)
[2021-07-05] MEDS: PSYLLIUM HUSK 100% 6 GM PACKET PO SCH ×2 (08:52→21:36)
[2021-07-05] MEDS: methocarbamoL 500 MG TAB PO SCH ×3 (08:52→21:35)
[2021-07-05] MEDS: THEOPHYLLINE 24 HOUR 200 MG CAP.ER.24H PO SCH ×2 (08:53→21:36)
[2021-07-05] MEDS: DULoxetine HCL 30 MG CAPSULE.DR PO SCH (08:53)
[2021-07-05] MEDS: VERAPAMIL 40 MG TAB PO SCH ×3 (08:53→21:35)
[2021-07-05 09:21] LABS: Basophils # (A) 0.01 X 10*3/uL (0.00-0.10); Basophils % (A) 0.1 %; Eosinophils # (A) 0 X 10*3/uL (0.04-0.35); Eosinophils % (A) 0 %; HGB 7.3 g/dL (12.0-15.0); Lymphocytes # (A) 0.43 X 10*3/uL (0.90-5.00); Lymphocytes % (A) 3.6 %; MCH 24.6 pg (27.0-32.0); MCHC 28.1 g/dL (32.0-37.0); MCV 87.5 fL (80.0-97.0); Mean Platelet Volume 10.5 fL (9.5-12.2); Monocytes % (A) 1.7 %; Neutrophils # (A) 11.13 X 10*3/uL (1.80-7.70); Neutrophils % (A) 93.7 %; Platelet Count 309 X 10*3/uL (140-440); RBC 2.97 X 10*6/uL (4.10-5.20); RDW 20.2 % (11.5-14.5); WBC 11.88 X 10*3/uL (4.50-10.00)
[2021-07-05 10:07] LABS: African American GFR (CKD) 115.3 (60.0-200.0); Albumin 3.3 g/dL (3.80-4.90); Albumin/Globulin Ratio 1.83 (1.60-3.17); Anion Gap 6.6 mmol/L (4.00-12.00); Calcium 8.5 mg/dL (8.7-10.3); Carbon Dioxide 30.4 mmol/L (21.6-31.8); Globulin 1.8 g/dL (1.6-3.3); Non-African American GFR(CKD) 99.4 (60.0-200.0); Total Bilirubin 0.2 mg/dL (0.2-1.2); Total Protein 5.1 g/dL (6.2-8.2)
--- NOTE | 2021-07-05 11:30 | P.PN ---
Subjective Progress Note Date: 07/05/21 Patient reports that her breathing is similar compared to yesterday. She started having some wheezing. No acute events overnight Objective - Vital Signs Vital signs: Vital Signs Temp 98.3 F 07/05/21 07:00 Pulse 94 07/05/21 08:41 Resp 18 07/05/21 08:00 BP 144/70 07/05/21 07:00 Pulse Ox 94 L 07/05/21 08:24 Intake & Output 07/04/21 07/05/21 07/05/21 18:59 06:59 18:59 Intake Total 400 800 Output Total 550 Balance -150 800 Intake: IV 400 Sodium Chloride 0.9% 1, 400 000 ml @ 100 mls/hr IV . Q10H LATESHA Rx#:[id number] Oral 800 Output: Urine 550 Other: Voiding Method Bedside Commode Bedside Commode Bedside Commode # Voids 1 - Exam General: The patient is awake and alert, in no distress Eye: there is normal conjunctiva bilaterally. Neck: The neck is supple, there is no JVD. Cardiovascular: Normal S1-S2, no S3-S4, no murmurs. Respiratory: Lungs with end-expiratory wheezing Gastrointestinal: Abdomen is soft, nontender Musculoskeletal: There is no pedal edema. Neurological:. Speech is normal. Skin: Skin is warm and dry - Labs CBC & Chem 7: 07/05/21 05:08 07/05/21 05:08 Labs: Abnormal Lab Results - Last 24 Hours (Table) 07/05/21 07/05/21 Range/Units 05:08 05:08 WBC 11.88 H (4.50-10.00) X 10*3/uL RBC 2.97 L (4.10-5.20) X 10*6/uL Hgb 7.3 L (12.0-15.0) g/dL Hct 26.0 L (37.2-46.3) % MCH 24.6 L (27.0-32.0) pg MCHC 28.1 L (32.0-37.0) g/dL RDW 20.2 H (11.5-14.5) % Immature Gran # 0.11 H (0.00-0.04) X 10*3/uL Neutrophils # 11.13 H (1.80-7.70) X 10*3/uL Lymphocytes # 0.43 L (0.90-5.00) X 10*3/uL Eosinophils # 0 L (0.04-0.35) X 10*3/uL Creatinine 0.5 L (0.6-1.5) mg/dL BUN/Creatinine Ratio 38.00 H (12.00-20.00) Ratio Glucose 114 H (70-110) mg/dL Calcium 8.5 L (8.7-10.3) mg/dL Total Protein 5.1 L (6.2-8.2) g/dL Albumin 3.30 L (3.80-4.90) g/dL Assessment and Plan Assessment: Acute COPD exacerbation Supplemental oxygen as needed Patient IV Solu-Medrol with transition to oral prednisone starting tomorrow Bronchodilators treatments as needed and [id number] Resume home inhalers, Singulair Pulmonary consulted, appreciate recommendation Covid screen negative Chronic conditions Seizure disorder resume Keppra Hypertension resume verapamil GI prophylaxis with PPI DVT prophylaxis with heparin subcu 3 times a day Chronic back pain secondary to thoracic vertebral fractures Continue with [place] Anticipate discharge home tomorrow
--- NOTE | 2021-07-05 11:53 | P.PN ---
Subjective Progress Note Date: 07/05/21 Principal diagnosis: COPD exacerbation This is a pleasant 66-year-old female patient with known history of chronic hypoxic respiratory failure and COPD who was seeking lung transportation and she was activated on the transplant list in late on deactivated because of medical problems and comorbidities. Her FEV1 is 27% of predicted and she is on home oxygen and maintenance prednisone. She has been maintained on a combination of Perforomist and Pulmicort twice a day, and she takes Yupelri nebulized treatments once a day and albuterol around the clock in addition to treatments on an as needed basis. She has had multiple hospitalizations due to her COPD exacerbations. She presented here again yesterday with complaints of increasing shortness of breath. X-ray shows chronic bilateral pulmonary infiltrates slightly increased compared to previous on 06/05/2021. 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 No heart failure. White count 15.7. Hemoglobin 8.6. Sodium 136. Potassium 3.8. Creatinine 0.55. Glucose 1:15. Troponin negative times one. ProBNP 273. [place] virus not detected. She is seen today in consultation on the regular medical floor. She is currently resting comfortably in bed. On BiPAP at 10/5 and 30% FiO2. She has 0.9 normal saline at 100 ML's per hour. She has been initiated on DuoNeb inhalations, Pulmicort and Perforomist inhalations, theophylline, Singulair, IV Solu-Medrol. The patient is seen today 07/05/2021 in follow-up on the regular medical floor. She is more awake and alert today. Sitting up in bed. Denies any worsening sh ortness of breath, cough or congestion. Breathing a bit easier today compared to yesterday. Currently off the BiPAP and on the liters nasal cannula with O2 saturation 94%. She's been afebrile. Hemodynamically stable. White count 11.8. Hemoglobin 7.3. Sodium 141. Potassium 4.0. Creatinine 0.5. Glucose 114. She remains on DuoNeb inhalations, Pulmicort and Perforomist inhalations, IV Solu-Medrol. Objective - Vital Signs Vital signs: Vital Signs Temp 98.3 F 07/05/21 07:00 Pulse 94 07/05/21 08:41 Resp 18 07/05/21 08:00 BP 144/70 07/05/21 07:00 Pulse Ox 94 L 07/05/21 08:24 Intake & Output 07/04/21 07/05/21 07/05/21 18:59 06:59 18:59 Intake Total 400 800 Output Total 550 Balance -150 800 Intake: IV 400 Sodium Chloride 0.9% 1, 400 000 ml @ 100 mls/hr IV . Q10H LATESHA Rx#:[id number] Oral 800 Output: Urine 550 Other: Voiding Method Bedside Commode Bedside Commode Bedside Commode # Voids 1 - Exam GENERAL EXAM: Alert, pleasant 66-year-old female, cushingoid features, on 3 L nasal cannula, comfortable in no apparent distress. HEAD: Normocephalic. EYES: Normal reaction of pupils, equal size. NOSE: Clear with pink turbinates. THROAT: No erythema or exudates. NECK: No masses, no JVD. CHEST: No chest wall deformity. LUNGS: Equal air entry with faint end expiratory wheeze, diminished. CVS: S1 and S2 normal with no audible murmur, regular rhythm. ABDOMEN: No hepatosplenomegaly, normal bowel sounds, no guarding or rigidity. SPINE: No scoliosis or deformity SKIN: No rashes or chronic changes from chronic steroids. CENTRAL NERVOUS SYSTEM: No focal deficits, tone is normal in all 4 extremities. EXTREMITIES: There is no peripheral edema. No clubbing, no cyanosis. Peripheral pulses are intact. - Labs CBC & Chem 7: 07/05/21 05:08 07/05/21 05:08 Labs: Abnormal Lab Results - Last 24 Hours (Table) 07/05/21 07/05/21 Range/Units 05:08 05:08 WBC 11.88 H (4.50-10.00) X 10*3/uL RBC 2.97 L (4.10-5.20) X 10*6/uL Hgb 7.3 L (12.0-15.0) g/dL Hct 26.0 L (37.2-46.3) % MCH 24.6 L (27.0-32.0) pg MCHC 28.1 L (32.0-37.0) g/dL RDW 20.2 H (11.5-14.5) % Immature Gran # 0.11 H (0.00-0.04) X 10*3/uL Neutrophils # 11.13 H (1.80-7.70) X 10*3/uL Lymphocytes # 0.43 L (0.90-5.00) X 10*3/uL Eosinophils # 0 L (0.04-0.35) X 10*3/uL Creatinine 0.5 L (0.6-1.5) mg/dL BUN/Creatinine Ratio 38.00 H (12.00-20.00) Ratio Glucose 114 H (70-110) mg/dL Calcium 8.5 L (8.7-10.3) mg/dL Total Protein 5.1 L (6.2-8.2) g/dL Albumin 3.30 L (3.80-4.90) g/dL Assessment and Plan Assessment: 1 Acute on chronic hypoxic respiratory failure secondary to an acute exacerbation of chronic obstructive pulmonary disease FEV1 value 27% of predicted. Chest x-ray stable. Pro-calcitonin level pending. Patient is maintained on a combination of Yupelri Perforomist and Pulmicort neb last treatment on outpatient basis in addition to albuterol nebulized treatments. Currently she is deactivated from the lung transplant list due to her age and comorbidities. She has had multiple hospitalizations in the past for COPD exacerbation. She was also hospitalized for Covid 19 related pneumonia from which the patient recovered. COVID-19 screen negative this admission. 2 History of seizures previously on Keppra 3 History of Covid 19 related pneumonia, recovered 3 Severe COPD with chronic hypoxic and hypercapnic respiratory failure typically on oxygen 3 liters/min by nasal cannula 4 History of deep venous thrombosis. 5 History of hypertension. 6 History of rheumatoid arthritis. 7 History of colitis. 8 Osteopenia/osteoporosis. 9 Chronic back pain. 10 History of restless leg syndrome. 11 History of vulvar cancer. 12 Previous history of bowel resection. 13 Chronic pain syndrome, recent admission to [facility] following a fall, no fractures 14 Previous history of urinary tract infection with MRSA and pseudomonas from February 2021, treated 13 Poor overall functional performance based on the above-mentioned multiple comorbidities Plan The patient was seen and evaluated by Dr. Goodman Continue the current treatment plan We'll convert to oral steroids Currently on O2 at 3 L nasal cannula Continue BiPAP 10/5 and 30% FiO2 while sleeping and as needed We will continue to follow and make further recommendations based on her clinical status I, the cosigning physician, performed a history & physical examination of the patient. Lungs sounds with end expiratory wheeze, diminished. Maintaining O2 saturations in the 90s on 3 L/m per nasal cannula alternating with BiPAP and FiO2 of 30% I discussed the assessment and plan of care with my nurse practitioner, Symone Ohara. I attest to the above note as dictated by her.
[2021-07-05] MEDS: MONTELUKAST 10 MG TAB PO SCH (21:34)
[2021-07-05] MEDS ORDERED: MELATONIN 3 MG TABLET PO SCH (23:00)
[2021-07-06] MEDS: HYDROcodone/APAP 10-325MG 1 EACH TAB PO PRN ×3 (03:13→15:28)
[2021-07-06] MEDS: IPRATROPIUM-ALBUTEROL 3 ML NEB INHALATION SCH ×2 (07:37→12:00)
[2021-07-06] MEDS: BUDESONIDE 1 MG/2 ML NEBU INHALATION SCH (07:37)
[2021-07-06] MEDS: FORMOTEROL FUMARATE 20 MCG/2 ML NEBU INHALATION SCH (07:37)
[2021-07-06] MEDS: MAGNESIUM OXIDE 400 MG TAB PO SCH (08:38)
[2021-07-06] MEDS: CHOLECALCIFEROL 25 MCG (1000 IU) TABLET PO SCH (08:38)
[2021-07-06] MEDS: LORATADINE 10 MG TAB PO SCH (08:38)
[2021-07-06] MEDS: guaiFENesin 600 MG TABLET.ER PO SCH (08:38)
[2021-07-06] MEDS: FUROSEMIDE 40 MG TAB PO SCH (08:39)
[2021-07-06] MEDS: FERROUS SULFATE 325 MG TAB PO SCH (08:39)
[2021-07-06] MEDS: MULTIVITAMINS, THERA 1 EACH TAB PO SCH (08:39)
[2021-07-06] MEDS: POTASSIUM CHLORIDE ER 20 MEQ TAB.ER PO SCH (08:39)
[2021-07-06] MEDS: PANTOPRAZOLE 40 MG TABLET PO SCH (08:39)
[2021-07-06] MEDS: ASPIRIN 81 MG PO SCH (08:39)
[2021-07-06] MEDS: THEOPHYLLINE 24 HOUR 200 MG CAP.ER.24H PO SCH (08:41)
[2021-07-06] MEDS: PSYLLIUM HUSK 100% 6 GM PACKET PO SCH (08:41)
[2021-07-06] MEDS: VERAPAMIL 40 MG TAB PO SCH (08:41)
[2021-07-06] MEDS: methocarbamoL 500 MG TAB PO SCH (08:41)
[2021-07-06] MEDS: HEPARIN SODIUM,PORCINE/PF 5,000 UNIT/0.5 ML SYRINGE SQ SCH (08:43)
[2021-07-06] MEDS ORDERED: predniSONE 20 MG TAB PO SCH (09:00)
[2021-07-06] MEDS: DULoxetine HCL 30 MG CAPSULE.DR PO SCH (11:14)
[2021-07-06] MEDS: FLUTICASONE 50MCG/SPRAY NASAL 16GM EA NOSTRIL SCH (11:14)
--- NOTE | 2021-07-06 14:13 | P.DS ---
Providers Date of admission: 07/04/21 00:38 Expected date of discharge: 07/06/21 Attending physician: Mayank Schaffer MD Consults: 07/04/21 00:37 Consult Physician Routine Consulting Provider: Jose Elias Goodman Consult Reason/Comments: copd Do you want consulting provider notified?: Yes Primary care physician: Gavin [facility] Course: This is a 66-year-old female with severe COPD and recurrent admissions to the hospital that presented with worsening shortness of breath. Patient was evaluated in the ER and placed on observation for further management of her medi chris problems noted below. Acute COPD exacerbation Supplemental oxygen as needed Patient IV Solu-Medrol with transition to oral prednisone starting tomorrow Bronchodilators treatments as needed and [id number] Resume home inhalers, Singulair Pulmonary consulted, appreciate recommendation Covid screen negative Chronic conditions Seizure disorder resume Keppra Hypertension resume verapamil GI prophylaxis with PPI Patient's overall condition improved. She is on her home level of oxygen supplement. She will be discharged home on a tapering course prednisone. She was prescribed formoterol and budesonide inhalers in addition to her nebulizers at home. She will follow-up with her general matcher in the office. She was seen and evaluated by me on the day of discharge. She is still having scattered wheezing all over the chest. She appeared comfortable Patient Condition at Discharge: Fair Plan - Discharge Summary Discharge Rx Participant: Yes New Discharge Prescriptions: New Formoterol Fumarate [Perforomist] 20 mcg INHALATION RT-BID #30 ml predniSONE 0 mg PO DIRECTED #30 tab predniSONE 0 mg PO DIRECTED #30 tab Budesonide [Pulmicort] 1 mg INHALATION RT-BID #30 ml Continue rOPINIRole HCL [Requip] 0.5 mg PO HS Cholecalciferol [Vitamin D3 (25 Mcg = 1000 Iu)] 25 mcg PO DAILY Fluticasone Nasal Bayard [Flonase Nasal Bayard] 1 spr EA NOSTRIL DAILY Pantoprazole Sodium [Protonix] 40 mg PO DAILY Multivitamins, Thera [Multivitamin (formulary)] 1 tab PO DAILY DULoxetine HCL [Cymbalta] 30 mg PO DAILY Montelukast [Singulair] 10 mg PO HS Loratadine [Claritin] 10 mg PO DAILY Aspirin 81 mg PO DAILY #30 chew Furosemide [Lasix] 40 mg PO DAILY #30 tablet Magnesium Oxide [Mag-Ox] 400 mg PO BID #0 Acetaminophen [Tylenol Arthritis] 650 mg PO Q12H PRN PRN Reason: Pain Theophylline 24 Hour [Sekou-24] 200 mg PO BID methocarbamoL [Methocarbamol] 500 mg PO TID Verapamil HCl [Calan] 120 mg PO TID Psyllium Husk 100% [Metamucil Packet] 6 gm PO BID #1 packet Potassium Chloride ER [K-Dur 20] 40 meq PO DAILY polyethylene glycoL 3350 [Miralax] 17 gm PO DAILY PRN PRN Reason: Constipation Ipratropium-Albuterol Nebulize [Duoneb 0.5 mg-3 mg/3 ml Soln] 3 ml INHALATION RT-QID PRN PRN Reason: Shortness Of Breath Lidocaine 5% Patch [Lidoderm 5% Patch] 1 patch TRANSDERM DAILY PRN PRN Reason: Lower Back Pain Ferrous Sulfate [Iron (65 MG Elemental)] 325 mg PO DAILY predniSONE 5 mg PO DAILY HYDROcodone/APAP 10-325MG [Arnold 10-325] 1 tab PO Q6H PRN PRN Reason: Pain Discontinued Albuterol Inhaler [Ventolin Hfa Inhaler] 2 puff INHALATION RT-QID puff Discharge Medication List rOPINIRole HCL [Requip] 0.5 mg PO HS 03/24/20 [History] Cholecalciferol [Vitamin D3 (25 Mcg = 1000 Iu)] 25 mcg PO DAILY 04/08/20 [History] Fluticasone Nasal Bayard [Flonase Nasal Bayard] 1 spr EA NOSTRIL DAILY 12/30/20 [History] Multivitamins, Thera [Multivitamin (formulary)] 1 tab PO DAILY 12/30/20 [History] Pantoprazole Sodium [Protonix] 40 mg PO DAILY 12/30/20 [History] DULoxetine HCL [Cymbalta] 30 mg PO DAILY 01/15/21 [History] Montelukast [Singulair] 10 mg PO HS 02/19/21 [History] Psyllium Husk 100% [Metamucil Packet] 6 gm PO BID #1 packet 02/25/21 [Rx] Loratadine [Claritin] 10 mg PO DAILY 04/24/21 [History] Potassium Chloride ER [K-Dur 20] 40 meq PO DAILY 04/24/21 [History] Ipratropium-Albuterol Nebulize [Duoneb 0.5 mg-3 mg/3 ml Soln] 3 ml INHALATION RT-QID PRN 05/22/21 [History] Lidocaine 5% Patch [Lidoderm 5% Patch] 1 patch TRANSDERM DAILY PRN 05/22/21 [History] polyethylene glycoL 3350 [Miralax] 17 gm PO DAILY PRN 05/22/21 [History] Aspirin 81 mg PO DAILY #30 chew 05/26/21 [Rx] Furosemide [Lasix] 40 mg PO DAILY #30 tablet 06/10/21 [Rx] Magnesium Oxide [Mag-Ox] 400 mg PO BID #0 06/10/21 [Rx] Acetaminophen [Tylenol Arthritis] 650 mg PO Q12H PRN 07/04/21 [History] Ferrous Sulfate [Iron (65 MG Elemental)] 325 mg PO DAILY 07/04/21 [History] HYDROcodone/APAP 10-325MG [Arnold 10-325] 1 tab PO Q6H PRN 07/04/21 [History] Theophylline 24 Hour [Sekou-24] 200 mg PO BID 07/04/21 [History] Verapamil HCl [Calan] 120 mg PO TID 07/04/21 [History] methocarbamoL [Methocarbamol] 500 mg PO TID 07/04/21 [History] predniSONE 5 mg PO DAILY 07/04/21 [History] Budesonide [Pulmicort] 1 mg INHALATION RT-BID #30 ml 07/06/21 [Rx] Formoterol Fumarate [Perforomist] 20 mcg INHALATION RT-BID #30 ml 07/06/21 [Rx] predniSONE 0 mg PO DIRECTED #30 tab 07/06/21 [Rx] predniSONE 0 mg PO DIRECTED #30 tab 07/06/21 [Rx] Follow up Appointment(s)/Referral(s): Gavin Riggs [Primary Care Provider] - 1-2 days
[2021-07-06 15:17] VITALS: BP 156/74; PULSE 101; RESP 16; TEMP 98.5
--- NOTE | 2021-07-06 17:30 | P.PN ---
Subjective Progress Note Date: 07/06/21 Principal diagnosis: COPD exacerbation This is a pleasant 66-year-old female patient with known history of chronic hypoxic respiratory failure and COPD who was seeking lung transportation and she was activated on the transplant list in late on deactivated because of medical problems and comorbidities. Her FEV1 is 27% of predicted and she is on home oxygen and maintenance prednisone. She has been maintained on a combination of Perforomist and Pulmicort twice a day, and she takes Yupelri nebulized treatments once a day and albuterol around the clock in addition to treatments on an as needed basis. She has had multiple hospitalizations due to her COPD exacerbations. She presented here again yesterday with complaints of increasing shortness of breath. X-ray shows chronic bilateral pulmonary infiltrates slightly increased compared to previous on 06/05/2021. 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 No heart failure. White count 15.7. Hemoglobin 8.6. Sodium 136. Potassium 3.8. Creatinine 0.55. Glucose 1:15. Troponin negative times one. ProBNP 273. [place] virus not detected. She is seen today in consultation on the regular medical floor. She is currently resting comfortably in bed. On BiPAP at 10/5 and 30% FiO2. She has 0.9 normal saline at 100 ML's per hour. She has been initiated on DuoNeb inhalations, Pulmicort and Perforomist inhalations, theophylline, Singulair, IV Solu-Medrol. The patient is seen today 07/05/2021 in follow-up on the regular medical floor. She is more awake and alert today. Sitting up in bed. Denies any worsening sh ortness of breath, cough or congestion. Breathing a bit easier today compared to yesterday. Currently off the BiPAP and on the liters nasal cannula with O2 saturation 94%. She's been afebrile. Hemodynamically stable. White count 11.8. Hemoglobin 7.3. Sodium 141. Potassium 4.0. Creatinine 0.5. Glucose 114. She remains on DuoNeb inhalations, Pulmicort and Perforomist inhalations, IV Solu-Medrol. The patient is seen today 07/06/2021 in follow-up on the regular medical floor. She is currently sitting up in bed. Awake and alert in no acute distress. She is nearly back to her baseline. She is continued on DuoNeb inhalations, Pulmicort and Perforomist inhalations, steroids. Her back pain is better controlled. He continues to maintain good O2 saturations in the 90s on 2 L/m per nasal cannula. Objective - Vital Signs Vital signs: Vital Signs Temp 98.5 F 07/06/21 15:00 Pulse 101 H 07/06/21 15:00 Resp 16 07/06/21 15:00 BP 156/74 07/06/21 15:00 Pulse Ox 96 07/06/21 15:00 Intake & Output 07/05/21 07/06/21 07/06/21 18:59 06:59 18:59 Output Total 304 Balance -304 Output: Urine 303 Stool 1 Other: Voiding Method Bedside Commode # Voids 2 2 - Exam GENERAL EXAM: Alert, pleasant 66-year-old female, cushingoid features, on 3 L nasal cannula, comfortable in no apparent distress. HEAD: Normocephalic. EYES: Normal reaction of pupils, equal size. NOSE: Clear with pink turbinates. THROAT: No erythema or exudates. NECK: No masses, no JVD. CHEST: No chest wall deformity. LUNGS: Equal air entry with faint end expiratory wheeze, diminished. CVS: S1 and S2 normal with no audible murmur, regular rhythm. ABDOMEN: No hepatosplenomegaly, normal bowel sounds, no guarding or rigidity. SPINE: No scoliosis or deformity SKIN: No rashes or chronic changes from chronic steroids. CENTRAL NERVOUS SYSTEM: No focal deficits, tone is normal in all 4 extremities. EXTREMITIES: There is no peripheral edema. No clubbing, no cyanosis. Peripheral pulses are intact. - Labs CBC & Chem 7: 07/05/21 05:08 07/05/21 05:08 Assessment and Plan Assessment: 1 Acute on chronic hypoxic respiratory failure secondary to an acute exacerbation of chronic obstructive pulmonary disease FEV1 value 27% of predicted. Chest x-ray stable. Pro-calcitonin level pending. Patient is maintained on a combination of Yupelri Perforomist and Pulmicort neb last treat ment on outpatient basis in addition to albuterol nebulized treatments. Currently she is deactivated from the lung transplant list due to her age and comorbidities. She has had multiple hospitalizations in the past for COPD exacerbation. She was also hospitalized for Covid 19 related pneumonia from which the patient recovered. COVID-19 screen negative this admission. 2 History of seizures previously on Keppra 3 History of Covid 19 related pneumonia, recovered 3 Severe COPD with chronic hypoxic and hypercapnic respiratory failure typically on oxygen 3 liters/min by nasal cannula 4 History of deep venous thrombosis. 5 History of hypertension. 6 History of rheumatoid arthritis. 7 History of colitis. 8 Osteopenia/osteoporosis. 9 Chronic back pain. 10 History of restless leg syndrome. 11 History of vulvar cancer. 12 Previous history of bowel resection. 13 Chronic pain syndrome, recent admission to [facility] following a fall, no fractures 14 Previous history of urinary tract infection with MRSA and pseudomonas from February 2021, treated 13 Poor overall functional performance based on the above-mentioned multiple comorbidities Plan The patient was seen and evaluated by Dr. Goodman Continue the current treatment plan Titrate her FiO2 as tolerated Increase her activity as tolerated We will continue to follow I, the cosigning physician, performed a history & physical examination of the patient. Lungs sounds with end expiratory wheeze, diminished. Maintaining O2 saturations in the 90s on 3 L/m per nasal cannula alternating with BiPAP and F iO2 of 30% I discussed the assessment and plan of care with my nurse practitioner, Symone Ohara. I attest to the above note as dictated by her.
== END 2021-07-06 16:37 | disposition home or self-care (01) ==
LOC: EC 23:51 → 6NMEDSUR 07-04 00:38
PROVIDERS: ADMIT Internal Medicine; ATTEND Internal Medicine
DX: J44.1 Chronic obstructive pulmonary disease with (acute) exacerbation (principal); J96.21 Acute and chronic respiratory failure with hypoxia; J96.22 Acute and chronic respiratory failure with hypercapnia; G40.909 Epilepsy, unspecified, not intractable, without status epilepticus; I10 Essential (primary) hypertension; G25.81 Restless legs syndrome; G89.4 Chronic pain syndrome; S22.009D Unspecified fracture of unspecified thoracic vertebra, subsequent encounter for fracture with routine healing; M81.0 Age-related osteoporosis without current pathological fracture; M85.80 Other specified disorders of bone density and structure, unspecified site; M06.9 Rheumatoid arthritis, unspecified; R91.8 Other nonspecific abnormal finding of lung field; D64.9 Anemia, unspecified; H91.90 Unspecified hearing loss, unspecified ear; F41.9 Anxiety disorder, unspecified; F90.9 Attention-deficit hyperactivity disorder, unspecified type; E66.9 Obesity, unspecified; Z68.31 Body mass index [BMI] 31.0-31.9, adult; Z20.822 Contact with and (suspected) exposure to COVID-19; Z79.82 Long term (current) use of aspirin; Z79.51 Long term (current) use of inhaled steroids; Z79.52 Long term (current) use of systemic steroids; Z79.899 Other long term (current) drug therapy; Z88.5 Allergy status to narcotic agent; Z88.8 Allergy status to other drugs, medicaments and biological substances; Z91.048 Other nonmedicinal substance allergy status; Z99.81 Dependence on supplemental oxygen; Z85.038 Personal history of other malignant neoplasm of large intestine; Z85.44 Personal history of malignant neoplasm of other female genital organs; Z76.82 Awaiting organ transplant status; Z96.651 Presence of right artificial knee joint; Z90.721 Acquired absence of ovaries, unilateral; Z90.710 Acquired absence of both cervix and uterus; Z90.49 Acquired absence of other specified parts of digestive tract; Z86.718 Personal history of other venous thrombosis and embolism; Z87.01 Personal history of pneumonia (recurrent); Z87.19 Personal history of other diseases of the digestive system; Z87.891 Personal history of nicotine dependence; Z97.4 Presence of external hearing-aid; Z86.16 Personal history of COVID-19; Z87.440 Personal history of urinary (tract) infections; Z91.81 History of falling; Z86.14 Personal history of Methicillin resistant Staphylococcus aureus infection; Z80.0 Family history of malignant neoplasm of digestive organs; Z82.5 Family history of asthma and other chronic lower respiratory diseases; Z80.49 Family history of malignant neoplasm of other genital organs
CPT/HCPCS: 96376 ×2; 96372 ×3; 96374; 96375; 99285; 36415; 94660 ×3; 94640 ×6; 94760; 83880; 80053 ×2; 83605; 83735; 84484; 85025 ×2; 85610; 85730; 81001; 87635; 71045; G0378 ×3; J2270; J2930 ×2; J7512; J1644 ×3

== ENCOUNTER 2021-07-15 09:45 | Day surgery (SDC) | payer MEDICARE, OTHER ==
[2021-07-13 16:30] VITALS: BMI 29.9
--- NOTE | 2021-07-14 23:15 | HP ---
HISTORY AND PHYSICAL CHIEF COMPLAINT: Chronic bilateral serous otitis media. HISTORY OF PRESENT ILLNESS: The patient is a 66-year-old female who is well known to my office. She recently presented complaining of having a plugged sensation in both ears. Approximately 3 years ago we inserted Carmen-type T-tubes in both ears. At the time that she was seen in my office, clinical examination revealed that the tubes had extruded and there was once again fluid in both middle ear spaces. It was recommended that she undergo a reinsertion of Carmen-type T-tubes under IV sedation with M.A.C. Past medical history reveals that she has ALLERGIES to DARVON and REMICADE. Current medications include Xanax, Astelin nasal spray, trazodone, Lasix, Zofran, benzoate, Yupelri, Singulair, ipratropium bromide Albuterol, Flonase, benazepril, Mucinex, pseudoephedrine. Review of systems reveals cardiovascular system is positive for hypertension and ASHD. Respiratory is positive for emphysema, COPD. Musculoskeletal system is positive for osteoarthritis. The remainder of review of systems is essentially unremarkable. PHYSICAL EXAMINATION: The patient is a very pleasant 66-year-old female who is alert, cooperative and well- oriented to time and place. HEENT EXAMINATION: Patient is normocephalic. Examination of ears reveals patient has extruded Carmen type T-tubes. The middle ear spaces have fluid bilaterally. Pupils are equal, round, reactive to light and accommodation. Extraocular movements within normal limits. Intranasal examination reveals moderate to severe septal deviation with compensatory hypertrophy of the inferior turbinates and a moderate amount of mucus on the mucous membranes and draining down the posterior pharyngeal wall. The mucus is clear. Cranial nerves 2 through 12 and the remainder of the head and neck exam are all within normal limits. Chest/cardiovascular: Both lung guzman are clear. Lung sounds are distant. There are no rales, rhonchi or wheezes. The patient is in regular sinus rhythm. S1 and S2 are present without any murmurs, S3s or S4s. Peripheral pulses are bilaterally symmetrical. ABDOMEN: There is no evidence any masses, megaly or tenderness. The abdomen is soft. Skin is unremarkable. Musculoskeletal/neurological are within normal limits. The pelvic and rectal exam is deferred at this time because the patient has this done on a regular basis at her family physician's office. The remainder of physical exam is essentially unremarkable. Previous surgeries include bilateral myringotomy x3, right total knee replacement, LASIK surgery, appendectomy, partial colectomy, bilateral cataract surgery, removal of genital warts and colonoscopy. IMPRESSION: Chronic bilateral serous otitis media. PLAN: The patient is scheduled undergo bilateral myringotomy with insertion of Carmen type T- tubes under IV sedation with M.A.C. ATTENTION RNS IN THE PRE-SURGICAL AREA: I have ordered for this patient to receive 2 grams of Ancef IV for prophylactic antibiotic. If the pharmacy department sends a different pre-surgical prophylactic antibiotic to the pre-surgical area, please cancel that order and return the medication to the pharmacy department. Please make sure that the patient's account is credited appropriately. I have discussed the risks, benefits and alternative therapies for the above-mentioned procedure and for both sedation/analgesia as well as necessary blood product administration, if indicated, as they pertain to this patient. The patient has indicated his or her understanding and acceptance of the risks and procedures discussed. MMVIR[place] / TYEN: [id number] /
[~2021-07-15 09:45] MED LIST changes: +DEXAMETHASONE SOD PHOSPHATE 4 MG/ML 1 ML VIAL IV ONE; +HYDROmorphone 0.5 MG/0.5 ML SYRINGE IVP PRN; +LACTATED RINGERS 1,000 ML IV SCH; +LIDOCAINE 1% (10MG/ML) FOR IV START INTRADERMA PRN; +MIDAZOLAM 2 MG/2 ML VIAL IV PRN; +ONDANSETRON 4 MG/2 ML VIAL IVP ONE
[2021-07-15] MEDS ORDERED: ONDANSETRON 4 MG/2 ML VIAL IVP ONE (10:50)
[2021-07-15] MEDS ORDERED: KETAMINE 10 MG/ML 20 ML VIAL ONE (11:04)
[2021-07-15] MEDS ORDERED: MIDAZOLAM 2 MG/2 ML VIAL ONE (11:04)
[2021-07-15] MEDS ORDERED: PROPOFOL 10 MG/ML 20 ML VIAL IV ONE (11:04)
[2021-07-15] MEDS ORDERED: fentaNYL (PF) 50 MCG/ML 2 ML AMP ONE (11:04)
[2021-07-15] MEDS ORDERED: OFLOXACIN 0.3% OTIC DROPS 5 ML BTL BOTH EARS ONE ×2 (11:20→11:29)
[2021-07-15 12:01] VITALS: RESP 16; TEMP 97
[2021-07-15 12:27] VITALS: BP 155/70; PULSE 84
--- NOTE | 2021-07-16 05:25 | OP ---
OPERATIVE REPORT DATE OF SURGERY: 07/15/2021. PREOPERATIVE DIAGNOSIS: Chronic bilateral serous otitis media with extruded Carmen type T tubes. PREOPERATIVE DIAGNOSIS: Chronic bilateral serous otitis media with extruded Carmen type T tubes. ANESTHESIA: Was IV sedation with MAC. OPERATIVE PROCEDURE: Bilateral myringotomy with insertion of Carmen type T tubes. OPERATING SURGEON: Dr. Tabares. COMPLICATIONS: None. ESTIMATED BLOOD LOSS: Zero. OPERATIVE PROCEDURE: The patient was placed on the operating table in supine position. After uneventful IV sedation, satisfactory sedation was obtained. Next, attention was directed toward the patient's right ear where the right ear was draped in usual customary fashion. Next, using the Zeiss operating microscope and a #3 aural speculum, the right external auditory canal was cleared of all wax and debris. It was noted that the previously extruded Carmen tube was imbedded in some of the wax that was removed. Next, a myringotomy knife was used to make an incision in the anterior inferior quadrant of the right tympanic membrane. The middle ear space was suctioned free of all fluid and a fresh Carmen T-type ventilation tube was inserted without difficulty. Attention was then directed to the left ear where the same procedure was carried out. The left ear was draped in usual fashion. Next, using the Zeiss operating microscope and a #3 aural speculum, the left external auditory canal was cleansed of all wax debris and also of the previously extruded Carmen T-tube. Next, using the myringotomy knife, an incision was made in the anterior inferior quadrant of the left tympanic membrane. The left middle ear space was suctioned free of all fluid and a fresh stoma Carmen T-type ventilation tube was inserted without difficulty. At this point, the procedure was terminated. There were no intraoperative complications. The patient tolerated the procedure well and was returned to the recovery room in satisfactory condition. MMODL / IJN: [id number] /
== END 2021-07-15 12:52 | disposition home or self-care (01) ==
LOC: OR 09:45
PROVIDERS: ATTEND Otolaryngology
DX: H65.23 Chronic serous otitis media, bilateral (principal); I10 Essential (primary) hypertension; I25.10 Atherosclerotic heart disease of native coronary artery without angina pectoris; J43.9 Emphysema, unspecified; Z88.5 Allergy status to narcotic agent; Z88.8 Allergy status to other drugs, medicaments and biological substances; Z79.899 Other long term (current) drug therapy; Z99.81 Dependence on supplemental oxygen; Z87.891 Personal history of nicotine dependence; M06.9 Rheumatoid arthritis, unspecified; Z79.52 Long term (current) use of systemic steroids
CPT/HCPCS: 69436; J2250; J0690; J2405; J3010; J2704

== ENCOUNTER 2021-07-23 19:16 | Emergency (ER) | payer MEDICARE, OTHER ==
[2021-07-23] MEDS ORDERED: SODIUM CHLORIDE 0.9% 500 ML 500 ML IV ONE (21:17)
--- NOTE | 2021-07-23 21:24 | ED ---
Fall HPI - General Chief Complaint: Fall Stated Complaint: low co2 Time Seen by Provider: 07/23/21 20:48 Source: patient, Caregiver Mode of arrival: ambulatory - History of Present Illness Initial Comments: 66-year-old female alert and oriented 4, presents to the emergency room with complaints of falling out of bed today at home. She sustained a skin tear to her right upper arm. She states that she has had increasing back pain since her surgery in May with Dr. Wyman. Caregiver at bedside states that she's been increasingly short of breath from her COPD and is concerned that her CO2 levels are elevated stating she is acting confused at home. Patient states that she fell out of bed onto the ground when no one was there denies loss of consciousness states she did not her head. She states that she is here in the emergency room for low back pain only. Patient is alert and oriented 4. MD Complaint: fall -: days(s) (1) Fall From: out of bed Fall Witnessed: no Place Fall Occurred: home Loss of Consciousness: none Prolonged Down Time?: no Severity scale (1-10): 10 Associated Symptoms: shortness of breath, confusion - Related Data Home Medications Medication Instructions Recorded Confirmed rOPINIRole HCL [Requip] 0.5 mg PO HS 03/24/20 07/15/21 Cholecalciferol [Vitamin D3 (25 25 mcg PO DAILY 04/08/20 07/15/21 Mcg = 1000 Iu)] Fluticasone Nasal [place] [Flonase 1 spr EA NOSTRIL DAILY 12/30/20 07/15/21 Nasal [place]] Multivitamins, Thera [Multivitamin 1 tab PO DAILY 12/30/20 07/15/21 (formulary)] Pantoprazole Sodium [Protonix] 40 mg PO QAM 12/30/20 07/15/21 DULoxetine HCL [Cymbalta] 30 mg PO QAM 01/15/21 07/15/21 Montelukast [Singulair] 10 mg PO HS 02/19/21 07/15/21 Loratadine [Claritin] 10 mg PO DAILY 04/24/21 07/15/21 Ipratropium-Albuterol Nebulize 3 ml INHALATION RT-QID PRN 05/22/21 07/15/21 [Duoneb 0.5 mg-3 mg/3 ml Soln] Lidocaine 5% Patch [Lidoderm 5% 1 patch TRANSDERM DAILY PRN 05/22/21 07/15/21 Patch] Ferrous Sulfate [Iron (65 MG 325 mg PO DAILY 07/04/21 07/15/21 Elemental)] HYDROcodone/APAP 10-325MG [[place] 1 tab PO Q6H PRN 07/04/21 07/15/21 10-325] Theophylline 24 Hour [[place]-24] 200 mg PO BID 07/04/21 07/15/21 Verapamil HCl [[place]] 120 mg PO TID 07/04/21 07/15/21 methocarbamoL [Methocarbamol] 500 mg PO TID PRN 07/04/21 07/15/21 Magnesium Oxide [Mag-Ox] 200 mg PO BID 07/14/21 07/15/21 Potassium Chloride [Klor-Con 20] 40 meq PO DAILY 07/14/21 07/15/21 Sennosides/Docusate Sodium [Senna 1 each PO HS 07/14/21 07/15/21 Plus 8.6-50 mg Tablet] predniSONE 50 mg PO QAM 07/14/21 07/15/21 Previous Rx's Medication Instructions Recorded Aspirin 81 mg PO DAILY #30 chew 05/26/21 Furosemide [Lasix] 40 mg PO DAILY #30 tablet 06/10/21 Budesonide [Pulmicort] 1 mg INHALATION RT-BID #30 ml 07/06/21 Formoterol Fumarate [Perforomist] 20 mcg INHALATION RT-BID #30 ml 07/06/21 Allergies Allergy/AdvReac Type Severity Reaction Status Date / Time infliximab [From Remicade] Allergy Dyspnea/HIV Verified 07/23/21 19:28 ES propoxyphene [From Darvon] Allergy Rash/Hives Verified 07/23/21 19:28 adhesive tape AdvReac "is hard Verified 07/23/21 19:28 on skin" Review of Systems ROS Statement: Those systems with pertinent positive or pertinent negative responses have been documented in the HPI. ROS Other: All systems not noted in ROS Statement are negative. Past Medical History Past Medical History: Cancer, COPD, Deep Vein Thrombosis (DVT), Hearing Disorder / Deafness, Hypertension, Pneumonia, Rheumatoid Arthritis (RA) Additional Past Medical History / Comment(s): Bilateral hearing aid use. Colitis, Osteopenia, hx cancer of appendix, uses oxygen 3L continuous, chronic back pain, restless leg. 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 Hx Covid 01/16. History of Any Multi-Drug Resistant Organisms: MRSA Date of last positivie culture/infection: february 2021 MDRO Source:: urine Past Surgical History: Appendectomy, Bowel Resection, Hysterectomy, Joint Replacement, Orthopedic Surgery Additional Past Surgical History / Comment(s): Right knee replacement, EGD/colonoscopy, lasik eye surgery, right colectomy, colonoscopy, pain procedure at [facility] with Dr Ty [facility] with unilateral oophorectomy, partial vulvectomy, Kyphoplasty. Past Anesthesia/Blood Transfusion Reactions: No Reported Reaction Additional Past Anesthesia/Blood Transfusion Reaction / Comment(s): States is not supposed to have general anesthesia. "Cannot have tube in throat." Past Psychological History: ADD/ADHD, Anxiety, Depression Smoking Status: Former smoker Past Alcohol Use History: None Reported Past Drug Use History: None Reported - Past Family History Father Family Medical History: Cancer, COPD Additional Family Medical History / Comment(s): COLON cancer. Mother Family Medical History: Cancer Additional Family Medical History / Comment(s): ESOPHAGUS cancer. Sister(s) Family Medical History: Cancer Additional Family Medical History / Comment(s): CERVICAL cancer, basal cell cancer. General Exam Limitations: no limitations General appearance: alert, in no apparent distress Head exam: Present: atraumatic, normocephalic, normal inspection Eye exam: Present: normal appearance, PERRL, EOMI. Absent: scleral icterus, conjunctival injection, periorbital swelling ENT exam: Present: normal exam, normal oropharynx, mucous membranes moist Neck exam: Present: normal inspection, full ROM. Absent: tenderness, meningismus, lymphadenopathy Respiratory exam: Present: wheezes (Bilaterally). Absent: respiratory distress, rales, rhonchi, stridor, accessory muscle use Cardiovascular Exam: Present: regular rate, normal rhythm, normal heart sounds. Absent: systolic murmur, diastolic murmur, rubs, gallop, clicks GI/Abdominal exam: Present: soft, normal bowel sounds. Absent: distended, tenderness, guarding, rebound, rigid Extremities exam: Present: normal inspection, full ROM, normal capillary refill. Absent: tenderness, pedal edema, joint swelling, calf tenderness Back exam: Present: normal inspection, tenderness (Lumbar spine). Absent: CVA tenderness (R), CVA tenderness (L), rash noted Neurological exam: Present: alert, oriented X3, CN II-XII intact Psychiatric exam: Present: normal affect, normal mood Skin exam: Present: warm, dry, intact, normal color. Absent: rash, cyanosis, diaphoretic, petechiae, pallor Course Vital Signs 07/23/21 07/23/21 07/23/21 19:24 20:46 22:45 Temperature 97.6 F Pulse Rate 97 95 86 Respiratory 24 22 20 Rate Blood Pressure 115/61 143/77 170/71 O2 Sat by Pulse 98 100 98 Oximetry Medical Decision Making - Medical Decision Making EKG shows sinus rhythm with premature atrial complexes no acute changes compared to 07/04/2021. Her troponin is negative at 0.012. Her hemoglobin and hematocrit is 8.2 and 27.0 which has been consistent for her. Her CO2 29. Glucose is 133. Chest x-ray shows pulmonary interstitial densities slightly worse than her last exam dated 07/04/2021. I did offer patient a breathing treatment and she declined at this time states she will use her medications when she gets home. An x-ray of her lumbar spine was performed as she fell out of bed and is complaining of low back pain. She did have spinal surgery with Dr. Wyman in May. X-ray shows multiple compression fractures without progression compared to old exam. She states that she has an appointment to have a CAT scan done for Dr. Wyman next month. She was directed to continue to follow up with him for continuation of care. Case discussed with Dr. Vang - Lab Data Result diagrams: 07/23/21 21:27 07/23/21 21:27 Lab Results 07/23/21 07/23/21 07/23/21 Range/Units 21:27 21:27 21:27 WBC 13.4 H (3.8-10.6) k/uL RBC 3.16 L (3.80-5.40) m/uL Hgb 8.2 L (11.4-16.0) gm/dL Hct 27.0 L (34.0-46.0) % MCV 85.5 (80.0-100.0) fL MCH 25.8 (25.0-35.0) pg MCHC 30.1 L (31.0-37.0) g/dL RDW 19.6 H (11.5-15.5) % Plt Count 208 (150-450) k/uL MPV 9.5 Neutrophils % 86 % Lymphocytes % 8 % Monocytes % 5 % Eosinophils % 1 % Basophils % 0 % Neutrophils # 11.5 H (1.3-7.7) k/uL Lymphocytes # 1.0 (1.0-4.8) k/uL Monocytes # 0.6 (0-1.0) k/uL Eosinophils # 0.1 (0-0.7) k/uL Basophils # 0.0 (0-0.2) k/uL Hypochromasia Marked Poikilocytosis Slight Anisocytosis Slight PT 9.3 (9.0-12.0) sec INR 0.8 (<1.2) APTT 18.4 L (22.0-30.0) sec Sodium 136 L (137-145) mmol/L Potassium 4.2 (3.5-5.1) mmol/L Chloride 99 (98-107) mmol/L Carbon Dioxide 29 (22-30) mmol/L Anion Gap 8 mmol/L BUN 22 H (7-17) mg/dL Creatinine 0.74 (0.52-1.04) mg/dL Est GFR (CKD-EPI)AfAm >90 (>60 ml/min/1.73 sqM) Est GFR (CKD-EPI)NonAf 84 (>60 ml/min/1.73 sqM) Glucose 133 H (74-99) mg/dL Calcium 9.5 (8.4-10.2) mg/dL Total Bilirubin 0.3 (0.2-1.3) mg/dL AST 22 (14-36) U/L ALT 19 (4-34) U/L Alkaline Phosphatase 92 (38-126) U/L Total Protein 6.2 L (6.3-8.2) g/dL Albumin 3.7 (3.5-5.0) g/dL Urine Color Urine Appearance (Clear) Urine pH (5.0-8.0) Ur Specific [place] (1.001-1.035) Urine Protein (Negative) Urine Glucose (UA) (Negative) Urine Ketones (Negative) Urine Blood (Negative) Urine Nitrite (Negative) Urine Bilirubin (Negative) Urine Urobilinogen (<2.0) mg/dL Ur Leukocyte Esterase (Negative) Urine RBC (0-5) /hpf Urine WBC (0-5) /hpf Urine Bacteria (None) /hpf Hyaline Casts (0-2) /lpf Urine Mucus (None) /hpf 07/23/21 Range/Units 21:27 WBC (3.8-10.6) k/uL RBC (3.80-5.40) m/uL Hgb (11.4-16.0) gm/dL Hct (34.0-46.0) % MCV (80.0-100.0) fL MCH (25.0-35.0) pg MCHC (31.0-37.0) g/dL RDW (11.5-15.5) % Plt Count (150-450) k/uL MPV Neutrophils % % Lymphocytes % % Monocytes % % Eosinophils % % Basophils % % Neutrophils # (1.3-7.7) k/uL Lymphocytes # (1.0-4.8) k/uL Monocytes # (0-1.0) k/uL Eosinophils # (0-0.7) k/uL Basophils # (0-0.2) k/uL Hypochromasia Poikilocytosis Anisocytosis PT (9.0-12.0) sec INR (<1.2) APTT (22.0-30.0) sec Sodium (137-145) mmol/L Potassium (3.5-5.1) mmol/L Chloride (98-107) mmol/L Carbon Dioxide (22-30) mmol/L Anion Gap mmol/L BUN (7-17) mg/dL Creatinine (0.52-1.04) mg/dL Est GFR (CKD-EPI)AfAm (>60 ml/min/1.73 sqM) Est GFR (CKD-EPI)NonAf (>60 ml/min/1.73 sqM) Glucose (74-99) mg/dL Calcium (8.4-10.2) mg/dL Total Bilirubin (0.2-1.3) mg/dL AST (14-36) U/L ALT (4-34) U/L Alkaline Phosphatase (38-126) U/L Total Protein (6.3-8.2) g/dL Albumin (3.5-5.0) g/dL Urine Color Yellow Urine Appearance Clear (Clear) Urine pH 5.5 (5.0-8.0) Ur Specific [place] 1.024 (1.001-1.035) Urine Protein Trace H (Negative) Urine Glucose (UA) Negative (Negative) Urine Ketones Negative (Negative) Urine Blood Trace H (Negative) Urine Nitrite Negative (Negative) Urine Bilirubin Negative (Negative) Urine Urobilinogen <2.0 (<2.0) mg/dL Ur Leukocyte Esterase Negative (Negative) Urine RBC 5 (0-5) /hpf Urine WBC 3 (0-5) /hpf Urine Bacteria Rare H (None) /hpf Hyaline Casts 13 H (0-2) /lpf Urine Mucus Few H (None) /hpf - EKG Data EKG shows normal: sinus rhythm (Ventricular rate of 93, NC interval 0.118, QRS 0.68, QTc 0.447) Disposition Clinical Impression: Fall, Back pain Disposition: HOME SELF-CARE Instructions (If sedation given, give patient instructions): Fall Prevention for Older Adults (ED), Back Pain (ED) Additional Instructions: Continue your previously prescribed medications for your back pain. Follow-up with your primary care doctor and your orthopedic doctor within the next week. Return to the emergency room with any new or worsening symptoms including chest pain, worsening shortness of breath, or fevers. Is patient prescribed a controlled substance at d/c from ED?: No Referrals: Gavin Riggs [Primary Care Provider] - 1-2 days Time of Disposition: 23:38
--- NOTE | 2021-07-23 21:54 | XR ---
EXAMINATION TYPE: XR chest 1V DATE OF EXAM: 07/23/2021 COMPARISON: 07/04/2021 HISTORY: Short of breath TECHNIQUE: Single view FINDINGS: There is some bilateral mild perihilar pulmonary infiltrate. There is no obvious heart fail ure. Heart appears enlarged. There is some coarse interstitial density in the lower lobes. IMPRESSION: Pulmonary interstitial density likely related to pulmonary fibrosis and interstitial pneu monia. No obvious heart failure. Lung disease appears slightly worse than last exam.
[2021-07-23 21:56] LABS: INR 0.8 (<1.2); Prothrombin Time 9.3 sec (9.0-12.0)
[2021-07-23 21:58] LABS: ALT 19 U/L (4-34); AST 22 U/L (14-36); African American GFR (CKD) >90 (>60 ml/min/1.73 sqM); Albumin 3.7 g/dL (3.5-5.0); Alkaline Phosphatase 92 U/L (38-126); Anion Gap 8 mmol/L; Blood Urea Nitrogen 22 mg/dL (7-17); Calcium 9.5 mg/dL (8.4-10.2); Carbon Dioxide 29 mmol/L (22-30); Chloride 99 mmol/L (98-107); Glucose 133 mg/dL (74-99); Non-African American GFR(CKD) 84 (>60 ml/min/1.73 sqM); Potassium 4.2 mmol/L (3.5-5.1); Sodium 136 mmol/L (137-145); Total Bilirubin 0.3 mg/dL (0.2-1.3); Total Protein 6.2 g/dL (6.3-8.2)
--- NOTE | 2021-07-23 22:00 | XR ---
EXAMINATION TYPE: XR lumbar spine 2 or 3V DATE OF EXAM: 07/23/2021 COMPARISON: 721 HISTORY: Back pain TECHNIQUE: 3 views FINDINGS: There is vertebroplasty at L3 and L5. There is mild compression deformity of all the lumbar vertebra as well as T12. There is compression up to 35%. Abdominal aorta is atheromatous. Posterior elements are intact. Sacroiliac joints are intact. IMPRESSION: Multiple compression fractures without progression compared to old exam.
[2021-07-23 22:09] LABS: Partial Thromboplastin Time 18.4 sec (22.0-30.0)
[2021-07-23 22:11] LABS: Anisocytosis Slight; Basophils % (A) 0 %; Eosinophils # (A) 0.1 k/uL (0-0.7); Eosinophils % (A) 1 %; HGB 8.2 gm/dL (11.4-16.0); Hypochromasia Marked; Lymphocytes % (A) 8 %; MCH 25.8 pg (25.0-35.0); MCHC 30.1 g/dL (31.0-37.0); MCV 85.5 fL (80.0-100.0); Mean Platelet Volume 9.5; Monocytes # (A) 0.6 k/uL (0-1.0); Monocytes % (A) 5 %; Neutrophils # (A) 11.5 k/uL (1.3-7.7); Neutrophils % (A) 86 %; Platelet Count 208 k/uL (150-450); Poikilocytosis Slight; RBC 3.16 m/uL (3.80-5.40); RDW 19.6 % (11.5-15.5); WBC 13.4 k/uL (3.8-10.6)
[2021-07-23 22:50] VITALS: RESP 20
[2021-07-23 23:14] LABS: Appearance,Urine Clear (Clear); Bacteria,Urine Rare /hpf; Bilirubin,Urine Negative (Negative); Blood,Urine Trace (Negative); Color,Urine Yellow; Glucose,Urine (UA) Negative (Negative); Hyaline Casts,Urine 13 /lpf (0-2); Ketones,Urine Negative (Negative); Leukocyte Esterase,Urine Negative (Negative); Mucus,Urine Few /hpf; Nitrite,Urine Negative (Negative); PH, Urine 5.5 (5.0-8.0); Protein,Urine Trace (Negative); RBC,Urine 5 /hpf (0-5); Specific Gravity,Urine 1.024 (1.001-1.035); Urobilinogen,Urine <2.0 mg/dL (<2.0); WBC,Urine 3 /hpf (0-5)
[2021-07-23] MEDS ORDERED: MORPHINE SULFATE 2 MG/ML SYRINGE IVP STA (23:33)
[2021-07-23] MEDS ORDERED: ACET/COD 300 MG/30 MG STARTER PACK 6 TAB BTL PO STA (23:49)
[2021-07-24 00:34] VITALS: BP 174/68; PULSE 91; TEMP 98.3
== END 2021-07-24 00:20 | disposition home or self-care (01) ==
LOC: EC 19:16
DX: M54.5 Low back pain (principal); I10 Essential (primary) hypertension; J44.9 Chronic obstructive pulmonary disease, unspecified; M06.9 Rheumatoid arthritis, unspecified; F41.9 Anxiety disorder, unspecified; F32.9 Major depressive disorder, single episode, unspecified; Z79.82 Long term (current) use of aspirin; Z86.718 Personal history of other venous thrombosis and embolism; Z85.038 Personal history of other malignant neoplasm of large intestine; Z90.49 Acquired absence of other specified parts of digestive tract; Z90.710 Acquired absence of both cervix and uterus; Z96.651 Presence of right artificial knee joint; Z87.891 Personal history of nicotine dependence; Z86.16 Personal history of COVID-19
CPT/HCPCS: 99284; 96374; 96361 ×3; 36415; 93005; 80053; 85025; 85610; 85730; 81001; 72100; 71045; J2270

== ENCOUNTER → 2021-07-29 | Outpatient (CLI) | payer MEDICARE, OTHER ==
--- NOTE | 2021-07-29 13:52 | CT ---
EXAMINATION TYPE: CT lumbar spine wo con DATE OF EXAM: 07/29/2021 1:45 PM COMPARISON: CT lumbar spine June 05, 2021. Most recent lumbar spine x-ray July 23, 2021 HISTORY: low back pain CT DLP: 983 mGycm Automated exposure control for dose reduction was used. Unenhanced CT of the lumbar spine was performed. Bone and soft tissue window settings are submitted as well as coronal and sagittal reconstructions. There are 5 lumbar type vertebra redemonstrated. Osseous structures remain demineralized. Mild to mod erate chronic compression type fracture through the T12 vertebra superior endplate is redemonstrated. New sclerosis along the superior and inferior L1 endplates with mild height loss. Stable prominent S chmorl node in the inferior L2 endplate. Stable mild chronic height loss superior L2 vertebra with sc lerosis. Interval vertebroplasty at mild compression type fracture L3 level. Sclerosis of the fractur ed superior aspect now present. Satisfactory height L4 vertebra redemonstrated. New Vertebroplasty an teriorly in the mild to moderate compression fracture L5 vertebra. Alignment stable and satisfactory. No large disc herniations are present. No new significant posterior bony projections. Review of axial images shows mild facet arthropathy in the lower lumbar spine. There is moderate calc ified plaque of the overlying abdominal aorta. Few scattered sigmoid colonic diverticula are present. IMPRESSION: Interval vertebroplasty at L3 and L5 vertebra. Stable chronic compression fractures T12 a nd L2 levels. New Mild height loss with sclerosis at the L1 vertebra from prior MRI. Stable and sati sfactory alignment.
== END | disposition home or self-care (01) ==
LOC: RADCTMAIN 12:48
PROVIDERS: ATTEND Orthopaedic Surgery
DX: M51.46 Schmorl's nodes, lumbar region (principal); M47.816 Spondylosis without myelopathy or radiculopathy, lumbar region; M89.8X8 Other specified disorders of bone, other site
CPT/HCPCS: 72131

== ENCOUNTER 2021-08-05 11:10 | Inpatient (IN) | payer MEDICARE, OTHER ==
[2021-08-05] MEDS ORDERED: IPRATROPIUM-ALBUTEROL 3 ML NEB INHALATION STA (12:12)
--- NOTE | 2021-08-05 12:14 | ED ---
Chest Pain HPI - General Chief Complaint: Chest Pain Stated Complaint: sob/chest pain Time Seen by Provider: 08/05/21 11:34 Source: patient, RN notes reviewed Mode of arrival: ambulatory Limitations: no limitations - History of Present Illness Initial Comments: This a 66-year-old female presents emergency Department with chief complaint of shortness of breath. Patient states she has severe COPD she is oxygen dependent states that she is on lung transplant list. Patient states she was going for cardiac testing today but states she was too short of breath presents emergency from. Patient states she's been having increasing wheezing, exertional dyspnea. No chest pain states his lung tightness. No fevers or chills no other associated complaints. - Related Data Home Medications Medication Instructions Recorded Confirmed Cholecalciferol [Vitamin D3 (25 2,000 mcg PO DAILY 04/08/20 08/05/21 Mcg = 1000 Iu)] Fluticasone Nasal [place] [Flonase 1 spr EA NOSTRIL DAILY PRN 12/30/20 08/05/21 Nasal [place]] Multivitamins, Thera [Multivitamin 1 tab PO DAILY 12/30/20 08/05/21 (formulary)] Pantoprazole Sodium [Protonix] 40 mg PO DAILY 12/30/20 08/05/21 DULoxetine HCL [Cymbalta] 30 mg PO DAILY 01/15/21 08/05/21 Montelukast [Singulair] 10 mg PO HS 02/19/21 08/05/21 Loratadine [Claritin] 10 mg PO DAILY 04/24/21 08/05/21 Ipratropium-Albuterol Nebulize 3 ml INHALATION RT-QID PRN 05/22/21 08/05/21 [Duoneb 0.5 mg-3 mg/3 ml Soln] Lidocaine 5% Patch [Lidoderm 5% 1 patch TRANSDERM DAILY PRN 05/22/21 08/05/21 Patch] Ferrous Sulfate [Iron (65 MG 325 mg PO DAILY 07/04/21 08/05/21 Elemental)] Magnesium Oxide [Mag-Ox] 200 mg PO DAILY 07/14/21 08/05/21 Potassium Chloride [Klor-Con 20] 20 meq PO DAILY 07/14/21 08/05/21 Sennosides/Docusate Sodium [Senna 1 tab PO HS 07/14/21 08/05/21 Plus 8.6-50 mg Tablet] Albuterol Sulfate [Proair Hfa] 2 puff INHALATION RT-QID PRN 08/05/21 08/05/21 Budesonide [Pulmicort Flexhaler] 2 puff INHALATION RT-BID PRN 08/05/21 08/05/21 Budesonide [Pulmicort] 1 mg INHALATION RT-BID PRN 08/05/21 08/05/21 Cyclobenzaprine [Flexeril] 10 mg PO TID 08/05/21 08/05/21 Melatonin 3 mg PO HS 08/05/21 08/05/21 Meloxicam 15 mg PO DAILY 08/05/21 08/05/21 Theophylline Er 400mg Tab 200 mg PO BID 08/05/21 08/05/21 Verapamil HCl [Verapamil ER] 120 mg PO DAILY 08/05/21 08/05/21 predniSONE 5 mg PO DIRECTED 08/05/21 08/05/21 predniSONE 40 mg PO DAILY 08/05/21 08/05/21 rOPINIRole HCL [Requip] 1 mg PO HS 08/05/21 08/05/21 Previous Rx's Medication Instructions Recorded Aspirin 81 mg PO DAILY #30 chew 05/26/21 Furosemide [Lasix] 40 mg PO DAILY #30 tablet 06/10/21 Formoterol Fumarate [Perforomist] 20 mcg INHALATION RT-BID #30 ml 07/06/21 Allergies Allergy/AdvReac Type Severity Reaction Status Date / Time infliximab [From Remicade] Allergy Dyspnea/HIV Verified 08/05/21 13:30 ES propoxyphene [From Darvon] Allergy Rash/Hives Verified 08/05/21 13:30 adhesive tape AdvReac "is hard Verified 08/05/21 13:30 on skin" Review of Systems ROS Statement: Those systems with pertinent positive or pertinent negative responses have been documented in the HPI. ROS Other: All systems not noted in ROS Statement are negative. Past Medical History Past Medical History: Cancer, COPD, Deep Vein Thrombosis (DVT), Hearing Disorder / Deafness, Hypertension, Pneumonia, Rheumatoid Arthritis (RA) Additional Past Medical History / Comment(s): Bilateral hearing aid use. Colitis, Osteopenia, hx cancer of appendix, uses oxygen 3L continuous, chronic back pain, restless leg. 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 Hx Covid 01/16. History of Any Multi-Drug Resistant Organisms: MRSA Date of last positivie culture/infection: february 2021 MDRO Source:: urine Past Surgical History: Appendectomy, Bowel Resection, Hysterectomy, Joint Replacement, Orthopedic Surgery Additional Past Surgical History / Comment(s): Right knee replacement, EGD/colonoscopy, lasik eye surgery, right colectomy, colonoscopy, pain procedure at [facility] with Dr Ty [facility] with unilateral oophorectomy, partial vulvectomy, Kyphoplasty. Past Anesthesia/Blood Transfusion Reactions: No Reported Reaction Additional Past Anesthesia/Blood Transfusion Reaction / Comment(s): States is not supposed to have general anesthesia. "Cannot have tube in throat." Past Psychological History: ADD/ADHD, Anxiety, Depression Smoking Status: Former smoker Past Alcohol Use History: None Reported Past Drug Use History: None Reported - Past Family History Father Family Medical History: Cancer, COPD Additional Family Medical History / Comment(s): COLON cancer. Mother Family Medical History: Cancer Additional Family Medical History / Comment(s): ESOPHAGUS cancer. Sister(s) Family Medical History: Cancer Additional Family Medical History / Comment(s): CERVICAL cancer, basal cell cancer. General Exam Limitations: no limitations General appearance: alert, in no apparent distress Head exam: Present: atraumatic, normocephalic, normal inspection Eye exam: Present: normal appearance, PERRL, EOMI. Absent: scleral icterus, conjunctival injection, periorbital swelling ENT exam: Present: normal exam, normal oropharynx, mucous membranes moist Neck exam: Present: normal inspection, full ROM. Absent: tenderness, meningismus, lymphadenopathy Respiratory exam: Present: respiratory distress, wheezes. Absent: normal lung sounds bilaterally, rales, rhonchi, stridor Cardiovascular Exam: Present: normal rhythm, tachycardia, normal heart sounds. Absent: systolic murmur, diastolic murmur, rubs, gallop, clicks Neurological exam: Present: alert, oriented X3 Course Vital Signs 08/05/21 08/05/21 08/05/21 11:29 12:22 12:30 Temperature 98.7 F Pulse Rate 106 H 107 H 104 H Respiratory 20 22 20 Rate Blood Pressure 142/69 O2 Sat by Pulse 100 Oximetry Chest Pain [facility] patient chest x-ray shows evidence of pneumonia. Patient was evaluated by some physician Dr. Earl who accepts admission for COPD exacerbation. Disposition Clinical Impression: COPD with acute exacerbation, Pneumonia Disposition: ADMITTED IP TO THIS HOSP Condition: Serious Referrals: Gavin Riggs [Primary Care Provider] - 1-2 days
[2021-08-05 12:45] LABS: ALT 12 U/L (4-34); AST 18 U/L (14-36); African American GFR (CKD) >90 (>60 ml/min/1.73 sqM); Albumin 3.3 g/dL (3.5-5.0); Alkaline Phosphatase 93 U/L (38-126); Anion Gap 5 mmol/L; Blood Urea Nitrogen 17 mg/dL (7-17); Carbon Dioxide 30 mmol/L (22-30); Chloride 104 mmol/L (98-107); Glucose 124 mg/dL (74-99); Non-African American GFR(CKD) >90 (>60 ml/min/1.73 sqM); Potassium 3.9 mmol/L (3.5-5.1); Sodium 139 mmol/L (137-145); Total Bilirubin 0.2 mg/dL (0.2-1.3); Total Protein 5.8 g/dL (6.3-8.2)
--- NOTE | 2021-08-05 13:03 | XR ---
EXAMINATION TYPE: XR chest 2V DATE OF EXAM: 08/05/2021 COMPARISON: 07/23/2021 HISTORY: 66-year-old female with chest pain and shortness of breath TECHNIQUE: PA and lateral views FINDINGS: Heart normal size. Aorta within normal limits. Interstitial changes and right midlung airspace opacit y noted. There may be slight improvement in aeration at the left base. Slight worsening at the right midlung. IMPRESSION: COPD and interstitial fibrosis. However, opacity at the right midlung has increased and superimposed pneumonia would be difficult to exclude.
[2021-08-05 13:10] LABS: INR 0.9 (<1.2); Prothrombin Time 9.4 sec (9.0-12.0)
[2021-08-05 13:17] LABS: Anisocytosis Slight; Basophils # (A) 0.1 k/uL (0-0.2); Basophils % (A) 0 %; Eosinophils # (A) 0.1 k/uL (0-0.7); Eosinophils % (A) 1 %; HCT 30.5 % (34.0-46.0); HGB 9.3 gm/dL (11.4-16.0); Hypochromasia Marked; Lymphocytes # (A) 0.8 k/uL (1.0-4.8); Lymphocytes % (A) 4 %; MCH 26.1 pg (25.0-35.0); MCHC 30.3 g/dL (31.0-37.0); Mean Platelet Volume 7.9; Monocytes # (A) 0.6 k/uL (0-1.0); Monocytes % (A) 3 %; Neutrophils # (A) 18.5 k/uL (1.3-7.7); Neutrophils % (A) 92 %; Poikilocytosis Slight; RBC 3.55 m/uL (3.80-5.40); RDW 18.2 % (11.5-15.5); WBC 20.2 k/uL (3.8-10.6)
[2021-08-05 13:18] LABS: Platelet Count 570 k/uL (150-450)
[2021-08-05 13:20] LABS: Partial Thromboplastin Time 21.1 sec (22.0-30.0)
[2021-08-05] MEDS ORDERED: methylPREDNISolone SOD SUCCI 125 MG/2 ML VIAL IV STA (14:04)
[2021-08-05] MEDS ORDERED: ONDANSETRON 4 MG/2 ML VIAL IVP PRN (15:29)
[2021-08-05] MEDS ORDERED: FLUTICASONE 50MCG/SPRAY NASAL 16GM EA NOSTRIL PRN (15:29)
[2021-08-05] MEDS ORDERED: IPRATROPIUM-ALBUTEROL 3 ML NEB INHALATION SCH (16:00)
--- NOTE | 2021-08-05 16:57 | P.HPIM ---
History of Present Illness This is a 66-year-old female with complex past medical history noted below the presented to the emergency room with chest pain. Patient has a history of severe COPD on home O2 and was recently seen by her optical instrument repairer who increased her daily dose of prednisone 40 mg daily. Patient was scheduled for a cardiac stress test today at the cardiology office that did not make it to her appointment due to a mistake in timing. Her sister at bedside and told me that she was concerned about her overall condition and decided to bring her to the hospital. In the ER, patient was found to have audible wheezing. Twelve-lead EKG showed no acute ischemic changes. Patient told me that she is still having pain across her chest and this is being going on for some time she will be placed on observation for cardiology evaluation. Review of Systems Review of system: 14 points review of systems were obtained and were negative except to what were mentioned in the HPI. Past Medical History Past Medical History: Cancer, COPD, Deep Vein Thrombosis (DVT), Hearing Disorder / Deafness, Hypertension, Pneumonia, Rheumatoid Arthritis (RA) Additional Past Medical History / Comment(s): Bilateral hearing aid use. Colitis, Osteopenia, hx cancer of appendix, uses oxygen 3L continuous, chronic back pain, restless leg. 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 Hx Covid 01/16. History of Any Multi-Drug Resistant Organisms: MRSA Date of last positivie culture/infection: february 2021 MDRO Source:: urine Past Surgical History: Appendectomy, Bowel Resection, Hysterectomy, Joint Replacement, Orthopedic Surgery Additional Past Surgical History / Comment(s): Right knee replacement, EGD/colonoscopy, lasik eye surgery, right colectomy, colonoscopy, pain procedure at [facility] with Dr Ty [facility] with unilateral oophorectomy, partial vulvectomy, Kyphoplasty. Past Anesthesia/Blood Transfusion Reactions: No Reported Reaction Additional Past Anesthesia/Blood Transfusion Reaction / Comment(s): States is not supposed to have general anesthesia. "Cannot have tube in throat." Past Psychological History: ADD/ADHD, Anxiety, Depression Smoking Status: Former smoker Past Alcohol Use History: None Reported Past Drug Use History: None Reported - Past Family History Father Family Medical History: Cancer, COPD Additional Family Medical History / Comment(s): COLON cancer. Mother Family Medical History: Cancer Additional Family Medical History / Comment(s): ESOPHAGUS cancer. Sister(s) Family Medical History: Cancer Additional Family Medical History / Comment(s): CERVICAL cancer, basal cell can cer. Medications and Allergies Home Medications Medication Instructions Recorded Confirmed Type Cholecalciferol [Vitamin D3 (25 2,000 mcg PO DAILY 04/08/20 08/05/21 History Mcg = 1000 Iu)] Fluticasone Nasal [place] [Flonase 1 spr EA NOSTRIL DAILY PRN 12/30/20 08/05/21 History Nasal [place]] Multivitamins, Thera [Multivitamin 1 tab PO DAILY 12/30/20 08/05/21 History (formulary)] Pantoprazole Sodium [Protonix] 40 mg PO DAILY 12/30/20 08/05/21 History DULoxetine HCL [Cymbalta] 30 mg PO DAILY 01/15/21 08/05/21 History Montelukast [Singulair] 10 mg PO HS 02/19/21 08/05/21 History Loratadine [Claritin] 10 mg PO DAILY 04/24/21 08/05/21 History Ipratropium-Albuterol Nebulize 3 ml INHALATION RT-QID PRN 05/22/21 08/05/21 His tory [Duoneb 0.5 mg-3 mg/3 ml Soln] Lidocaine 5% Patch [Lidoderm 5% 1 patch TRANSDERM DAILY PRN 05/22/21 08/05/21 History Patch] Aspirin 81 mg PO DAILY #30 chew 05/26/21 08/05/21 Rx Furosemide [Lasix] 40 mg PO DAILY #30 tablet 06/10/21 08/05/21 Rx Ferrous Sulfate [Iron (65 MG 325 mg PO DAILY 07/04/21 08/05/21 History Elemental)] Formoterol Fumarate [Perforomist] 20 mcg INHALATION RT-BID #30 ml 07/06/21 08/05/21 Rx Magnesium Oxide [Mag-Ox] 200 mg PO DAILY 07/14/21 08/05/21 History Potassium Chloride [Klor-Con 20] 20 meq PO DAILY 07/14/21 08/05/21 History Sennosides/Docusate Sodium [Senna 1 tab PO HS 07/14/21 08/05/21 History Plus 8.6-50 mg Tablet] Albuterol Sulfate [Proair Hfa] 2 puff INHALATION RT-QID PRN 08/05/21 08/05/21 History Budesonide [Pulmicort Flexhaler] 2 puff INHALATION RT-BID PRN 08/05/21 08/05/21 History Budesonide [Pulmicort] 1 mg INHALATION RT-BID PRN 08/05/21 08/05/21 History Cyclobenzaprine [Flexeril] 10 mg PO TID 08/05/21 08/05/21 History Melatonin 3 mg PO HS 08/05/21 08/05/21 History Meloxicam 15 mg PO DAILY 08/05/21 08/05/21 History Theophylline Er 400mg Tab 200 mg PO BID 08/05/21 08/05/21 History Verapamil HCl [Verapamil ER] 120 mg PO DAILY 08/05/21 08/05/21 History predniSONE 5 mg PO DIRECTED 08/05/21 08/05/21 History predniSONE 40 mg PO DAILY 08/05/21 08/05/21 History rOPINIRole HCL [Requip] 1 mg PO HS 08/05/21 08/05/21 History Allergies Allergy/AdvReac Type Severity Reaction Status Date / Time infliximab [From Remicade] Allergy Dyspnea/HIV Verified 08/05/21 13:30 ES propoxyphene [From Darvon] Allergy Rash/Hives Verified 08/05/21 13:30 adhesive tape AdvReac "is hard Verified 08/05/21 13:30 on skin" Physical Exam Vitals: Vital Signs Temp Pulse Resp BP Pulse Ox 08/05/21 12:30 104 H 20 08/05/21 12:22 107 H 22 08/05/21 11:29 98.7 F 106 H 20 142/69 100 Intake and Output 08/05/21 08/05/21 08/05/21 06:59 14:59 22:59 Other: Weight 72.121 kg General: The patient is awake and alert, in no distress Eye: there is normal conjunctiva bilaterally. Neck: The neck is supple, there is no JVD. Cardiovascular: Normal S1-S2, no S3-S4, no murmurs. Respiratory: Lungs clear to auscultation bilaterally Gastrointestinal: Abdomen is soft, nontender Musculoskeletal: There is no pedal edema. Neurological:. Speech is normal. Skin: Skin is warm and dry Results CBC & Chem 7: 08/05/21 12:16 08/05/21 12:16 Labs: Abnormal Lab Results - Last 24 Hours (Table) 08/05/21 08/05/21 08/05/21 Range/Units 12:16 12:16 12:16 WBC 20.2 H (3.8-10.6) k/uL RBC 3.55 L (3.80-5.40) m/uL Hgb 9.3 L (11.4-16.0) gm/dL Hct 30.5 L (34.0-46.0) % MCHC 30.3 L (31.0-37.0) g/dL RDW 18.2 H (11.5-15.5) % Plt Count 570 H D (150-450) k/uL Neutrophils # 18.5 H (1.3-7.7) k/uL Lymphocytes # 0.8 L (1.0-4.8) k/uL APTT 21.1 L (22.0-30.0) sec Glucose 124 H (74-99) mg/dL Total Protein 5.8 L (6.3-8.2) g/dL Albumin 3.3 L (3.5-5.0) g/dL Assessment and Plan Assessment: 1. Chest pain, atypical in nature. Twelve-lead EKG with no acute ischemic changes. Initial troponin negative. I would continue telemetry monitoring and 10 troponin. Patient was scheduled for stress test outpatient today with cardiology. I would consult cardiology for further evaluation. 2. Acute COPD exacerbation, continue bronchodilators. Patient received Solu- Medrol 125 mg IV in the ER. Continue prednisone 40 mg daily. 3. Chronic hypoxic respiratory failure on home O2 4. Chronic medical problems: Hypertension, underlying seizure disorder, chronic back pain
[2021-08-05] MEDS: IPRATROPIUM-ALBUTEROL 3 ML NEB INHALATION SCH ×2 (17:31→20:47)
[2021-08-05] MEDS ORDERED: methylPREDNISolone SOD SUCCI 125 MG/2 ML VIAL IV SCH (18:00)
[2021-08-05] MEDS: CYCLOBENZAPRINE 10 MG TAB PO SCH ×2 (18:05→21:45)
[2021-08-05] MEDS: BUDESONIDE 0.5 MG/2 ML NEBU INHALATION SCH (20:47)
[2021-08-05] MEDS: FORMOTEROL FUMARATE 20 MCG/2 ML NEBU INHALATION SCH (20:47)
[2021-08-05] MEDS: MELATONIN 3 MG TABLET PO SCH (22:53)
[2021-08-05] MEDS: SENNOSIDES-DOCUSATE SODIUM 1 EACH TAB PO SCH (22:53)
[2021-08-05] MEDS: MONTELUKAST 10 MG TAB PO SCH (22:53)
[2021-08-06] MEDS: LIDOCAINE 5% PATCH TOPICAL PRN ×2 (00:12→21:15)
[2021-08-06] MEDS: ACETAMINOPHEN TAB 325 MG TAB PO PRN ×3 (00:13→21:16)
[2021-08-06] MEDS: THEOPHYLLINE 24 HOUR 400 MG CAP.ER.24H PO SCH ×2 (00:13→21:16)
[2021-08-06] MEDS: IPRATROPIUM-ALBUTEROL 3 ML NEB INHALATION SCH ×6 (02:04→20:15)
[2021-08-06] MEDS: BUDESONIDE 0.5 MG/2 ML NEBU INHALATION SCH ×2 (08:05→20:14)
[2021-08-06] MEDS: FORMOTEROL FUMARATE 20 MCG/2 ML NEBU INHALATION SCH ×2 (08:05→20:14)
[2021-08-06] MEDS: predniSONE 20 MG TAB PO SCH (08:12)
[2021-08-06] MEDS: MELOXICAM 7.5 MG TAB PO SCH (08:13)
[2021-08-06] MEDS: CHOLECALCIFEROL 25 MCG (1000 IU) TABLET PO SCH (08:13)
[2021-08-06] MEDS: CYCLOBENZAPRINE 10 MG TAB PO SCH ×3 (08:13→22:31)
[2021-08-06] MEDS: FERROUS SULFATE 325 MG TAB PO SCH (08:13)
[2021-08-06] MEDS: MAGNESIUM OXIDE 400 MG TAB PO SCH (08:14)
[2021-08-06] MEDS: ASPIRIN 81 MG PO SCH (08:14)
[2021-08-06] MEDS: PANTOPRAZOLE 40 MG TABLET PO SCH (08:14)
[2021-08-06] MEDS: FUROSEMIDE 40 MG TAB PO SCH (08:14)
[2021-08-06] MEDS: MULTIVITAMINS, THERA 1 EACH TAB PO SCH (08:14)
[2021-08-06] MEDS: POTASSIUM CHLORIDE ER 20 MEQ TAB.ER PO SCH (08:14)
[2021-08-06] MEDS: LORATADINE 10 MG TAB PO SCH (08:15)
[2021-08-06] MEDS: DULoxetine HCL 30 MG CAPSULE.DR PO SCH (08:15)
[2021-08-06] MEDS: VERAPAMIL SR 120 MG TABLET.ER PO SCH (08:15)
[2021-08-06 10:32] LABS: Anisocytosis Slight; Basophils # (A) 0.1 k/uL (0-0.2); Basophils % (A) 0 %; Eosinophils % (A) 0 %; HCT 28.4 % (34.0-46.0); HGB 8.4 gm/dL (11.4-16.0); Hypochromasia Marked; Lymphocytes # (A) 1.7 k/uL (1.0-4.8); Lymphocytes % (A) 8 %; MCH 25.9 pg (25.0-35.0); MCHC 29.7 g/dL (31.0-37.0); MCV 87.4 fL (80.0-100.0); Mean Platelet Volume 8.4; Monocytes % (A) 5 %; Neutrophils % (A) 85 %; Platelet Count 617 k/uL (150-450); Poikilocytosis Slight; RBC 3.26 m/uL (3.80-5.40)
--- NOTE | 2021-08-06 11:52 | P.PN ---
Subjective Patient was sleepy this morning when I saw her. She was easily arousable. She reports feeling about the same compared to yesterday. Shortness of breath is unchanged. She had mild end expiratory wheezing all over the chest. She is still having what she describes as chest pain radiating around both sides to her back Objective - Vital Signs Vital signs: Vital Signs Temp 98.0 F 08/06/21 08:00 Pulse 101 H 08/06/21 11:42 Resp 18 08/06/21 08:00 BP 179/77 08/06/21 08:00 Pulse Ox 99 08/06/21 08:00 Intake & Output 08/05/21 08/06/21 08/06/21 18:59 06:59 18:59 Weight 72.121 kg 72.121 kg Other: Voiding Method Toilet # Voids 2 - Exam General: The patient is awake and alert, in no distress Eye: there is normal conjunctiva bilaterally. Neck: The neck is supple, there is no JVD. Cardiovascular: Normal S1-S2, no S3-S4, no murmurs. Respiratory: Lungs with end expiratory wheezing all over Gastrointestinal: Abdomen is soft, nontender Musculoskeletal: There is no pedal edema. Neurological:. Speech is normal. Skin: Skin is warm and dry - Labs CBC & Chem 7: 08/06/21 09:47 08/05/21 12:16 Labs: Abnormal Lab Results - Last 24 Hours (Table) 08/05/21 08/05/21 08/05/21 Range/Units 12:16 12:16 12:16 WBC 20.2 H (3.8-10.6) k/uL RBC 3.55 L (3.80-5.40) m/uL Hgb 9.3 L (11.4-16.0) gm/dL Hct 30.5 L (34.0-46.0) % MCHC 30.3 L (31.0-37.0) g/dL RDW 18.2 H (11.5-15.5) % Plt Count 570 H D (150-450) k/uL Neutrophils # 18.5 H (1.3-7.7) k/uL Lymphocytes # 0.8 L (1.0-4.8) k/uL APTT 21.1 L (22.0-30.0) sec Glucose 124 H (74-99) mg/dL Total Protein 5.8 L (6.3-8.2) g/dL Albumin 3.3 L (3.5-5.0) g/dL 08/06/21 Range/Units 09:47 WBC 21.0 H (3.8-10.6) k/uL RBC 3.26 L (3.80-5.40) m/uL Hgb 8.4 L (11.4-16.0) gm/dL Hct 28.4 L (34.0-46.0) % MCHC 29.7 L (31.0-37.0) g/dL RDW 18.0 H (11.5-15.5) % Plt Count 617 H (150-450) k/uL Neutrophils # 18.0 H (1.3-7.7) k/uL Lymphocytes # (1.0-4.8) k/uL APTT (22.0-30.0) sec Glucose (74-99) mg/dL Total Protein (6.3-8.2) g/dL Albumin (3.5-5.0) g/dL Assessment and Plan Assessment: 1. Chest pain, atypical in nature. ACS ruled out. Twelve-lead EKG with no acute ischemic changes. Serial troponin negative 2 sets. Patient was scheduled for stress test outpatient today with cardiology. Awaiting cardiology evaluation 2. Acute COPD exacerbation, continue bronchodilators. Patient received Solu- Medrol 125 mg IV in the ER. Continue prednisone 40 mg daily 3. Chronic hypoxic respiratory failure on home O2 4. Chronic medical problems: Hypertension, underlying seizure disorder, chronic back pain Today, I reviewed her medication list and lab work results. Continue current regimen. Encouraged ambulation. Anticipate discharge home tomorrow.
--- NOTE | 2021-08-06 14:50 | P.CRDCN ---
History of Present Illness Consult date: 08/06/21 Consult reason: chest pain Chief complaint: Intermittent chest pain History of present illness: This is Ananth Martino NP dictating a consult on this patient on behalf of Dr. Rodriguez. The patient was interviewed and examined. HPI: Patient is a pleasant 66-year-old female who initially presented to the hospital with COPD exacerbation. Patient is reporting chest pain while in the hospital. Patient states that she's had intermittent chest pain it's gone from the left side around to her back. She states the pain started last week. The pain and intermittent and not constant. She describes it as a dull ache that goes around the left side into her back. Patient does see Dr. Ferrer. Patient's troponins were checked and were negative. Patient is also reporting that she's having recurrent falling, where she'll be walking and noticing that she's going to possibly fall, she reports that she'll go and sit down for the symptoms. The patient does not pass out during these episodes. Patient has a history of hypertension. She has had no stents. ROS: [No fever, chills, or rigors] [no cough, phlegm, or expectoration] [no nausea, vomiting, or diarrhea] [no hematuria, dysuria] [no musculoskelatal complaints] [no strokes or seizures] [no skin lesions] EXAMINATION: GENERAL: Well-appearing, well-nourished and in no acute distress. NECK: Supple without JVD or thyromegaly. LUNGS: Breath sounds diminished with expiratory wheezing bilaterally. Respiration equal and unlabored. No rales or rhonchi. HEART: Regular rate and rhythm without murmurs, rubs or gallops. S1 and S2 heard. EXTREMITIES: Normal range of motion, no edema. No clubbing or cyanosis. Peripheral pulses intact and strong. REVIEW OF LABS, ECG & MEDICAL DATA: LABS: Patient's white count is 21.0, hemoglobin 8.4, PT 9.4, INR 0.9, APTT 21.1, sodium 139, potassium 3.9, mag 2.0, troponins 2 less than 0.012, BNP 453. EKG: EKG from 08/05 shows sinus tachycardia, no ST elevation or depression. IMAGING: Chest x-ray from 08/05 shows COPD and interstitial fibrosis, with a possible superimposed pneumonia. VITALS: Temp 98.1, pulse 68, respirations 18, blood pressure 137/61, O2 saturati on 100% on 4 L nasal cannula. IMPRESSION/PLAN: 1. Atypical chest pain-will do an echocardiogram. 2. Rule out bradycardia-check orthostatic blood pressures. Monitor patient on telemetry. Thank you for the consult and allowing us to participate in the care of this patient. Past Medical History Past Medical History: Cancer, COPD, Deep Vein Thrombosis (DVT), Hearing Disorder / Deafness, Hypertension, Pneumonia, Rheumatoid Arthritis (RA) Additional Past Medical History / Comment(s): Bilateral hearing aid use. Colitis, Osteopenia, hx cancer of appendix, uses oxygen 3L continuous, chronic back pain, restless leg. 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 Hx Covid 01/16. History of Any Multi-Drug Resistant Organisms: MRSA Date of last positivie culture/infection: february 2021 MDRO Source:: urine Past Surgical History: Appendectomy, Bowel Resection, Hysterectomy, Joint Replacement, Orthopedic Surgery Additional Past Surgical History / Comment(s): Right knee replacement, EGD/colonoscopy, lasik eye surgery, right colectomy, colonoscopy, pain procedure at [facility] with Dr Ty, [facility] with unilateral oophorectomy, partial vulvectomy, Kyphoplasty. Past Anesthesia/Blood Transfusion Reactions: No Reported Reaction Additional Past Anesthesia/Blood Transfusion Reaction / Comment(s): States is not supposed to have general anesthesia. "Cannot have tube in throat." Past Psychological History: ADD/ADHD, Anxiety, Depression Additional Psychological History / Comment(s): . Smoking Status: Former smoker Past Alcohol Use History: None Reported Additional Past Alcohol Use History / Comment(s): Started smoking at age 11 and quit 22 years ago, 1-2ppd. Past Drug Use History: None Reported Additional Drug Use History / Comment(s): Quit using Marijuana 04/2016. - Past Family History Father Family Medical History: Cancer, COPD Additional Family Medical History / Comment(s): COLON cancer. Mother Family Medical History: Cancer Additional Family Medical History / Comment(s): ESOPHAGUS cancer. Sister(s) Family Medical History: Cancer Additional Family Medical History / Comment(s): CERVICAL cancer, basal cell cancer. Medications and Allergies Home Medications Medication Instructions Recorded Confirmed Type Cholecalciferol [Vitamin D3 (25 2,000 mcg PO DAILY 04/08/20 08/05/21 History Mcg = 1000 Iu)] Fluticasone Nasal [place] [Flonase 1 spr EA NOSTRIL DAILY PRN 12/30/20 08/05/21 History Nasal [place]] Multivitamins, Thera [Multivitamin 1 tab PO DAILY 12/30/20 08/05/21 History (formulary)] Pantoprazole Sodium [Protonix] 40 mg PO DAILY 12/30/20 08/05/21 History DULoxetine HCL [Cymbalta] 30 mg PO DAILY 01/15/21 08/05/21 History Montelukast [Singulair] 10 mg PO HS 02/19/21 08/05/21 History Loratadine [Claritin] 10 mg PO DAILY 04/24/21 08/05/21 History Ipratropium-Albuterol Nebulize 3 ml INHALATION RT-QID PRN 05/22/21 08/05/21 History [Duoneb 0.5 mg-3 mg/3 ml Soln] Lidocaine 5% Patch [Lidoderm 5% 1 patch TRANSDERM DAILY PRN 05/22/21 08/05/21 History Patch] Aspirin 81 mg PO DAILY #30 chew 05/26/21 08/05/21 Rx Furosemide [Lasix] 40 mg PO DAILY #30 tablet 06/10/21 08/05/21 Rx Ferrous Sulfate [Iron (65 MG 325 mg PO DAILY 07/04/21 08/05/21 History Elemental)] Formoterol Fumarate [Perforomist] 20 mcg INHALATION RT-BID #30 ml 07/06/21 08/05/21 Rx Magnesium Oxide [Mag-Ox] 200 mg PO DAILY 07/14/21 08/05/21 History Potassium Chloride [Klor-Con 20] 20 meq PO DAILY 07/14/21 08/05/21 History Sennosides/Docusate Sodium [Senna 1 tab PO HS 07/14/21 08/05/21 History Plus 8.6-50 mg Tablet] Albuterol Sulfate [Proair Hfa] 2 puff INHALATION RT-QID PRN 08/05/21 08/05/21 History Budesonide [Pulmicort Flexhaler] 2 puff INHALATION RT-BID PRN 08/05/21 08/05/21 History Budesonide [Pulmicort] 1 mg INHALATION RT-BID PRN 08/05/21 08/05/21 History Cyclobenzaprine [Flexeril] 10 mg PO TID 08/05/21 08/05/21 History Melatonin 3 mg PO HS 08/05/21 08/05/21 History Meloxicam 15 mg PO DAILY 08/05/21 08/05/21 History Theophylline Er 400mg Tab 200 mg PO BID 08/05/21 08/05/21 History Verapamil HCl [Verapamil ER] 120 mg PO DAILY 08/05/21 08/05/21 History predniSONE 5 mg PO DIRECTED 08/05/21 08/05/21 History predniSONE 40 mg PO DAILY 08/05/21 08/05/21 History rOPINIRole HCL [Requip] 1 mg PO HS 08/05/21 08/05/21 History Allergies Allergy/AdvReac Type Severity Reaction Status Date / Time infliximab [From Remicade] Allergy Dyspnea/HIV Verified 08/05/21 13:30 ES propoxyphene [From Darvon] Allergy Rash/Hives Verified 08/05/21 13:30 adhesive tape AdvReac "is hard Verified 08/05/21 13:30 on skin" Physical Exam Vitals: Vital Signs Temp Pulse Pulse Resp BP BP Pulse Ox 08/06/21 13:49 98.1 F 68 18 137/61 100 08/06/21 11:56 105 H 08/06/21 11:42 101 H 08/06/21 08:29 107 H 08/06/21 08:18 108 H 08/06/21 08:17 108 H 08/06/21 08:05 106 H 08/06/21 08:00 98.0 F 104 H 18 179/77 99 08/06/21 02:04 109 H 08/06/21 02:00 98.6 F 113 H 22 135/63 97 08/05/21 23:08 97.7 F 109 H 20 146/74 100 08/05/21 22:56 109 H 20 08/05/21 22:00 114 H 23 194/87 08/05/21 21:06 112 H 08/05/21 20:49 106 H 08/05/21 17:41 100 08/05/21 17:31 100 08/05/21 14:00 110 H 27 H 150/73 100 Intake and Output 08/05/21 08/06/21 08/06/21 22:59 06:59 14:59 Other: Voiding Method Toilet # Voids 2 Weight 72.121 kg Results 08/06/21 09:47 08/05/21 12:16 Cardiac Enzymes 08/05/21 Range/Units 17:22 Troponin I <0.012 (0.000-0.034) ng/mL CBC 08/06/21 Range/Units 09:47 WBC 21.0 H (3.8-10.6) k/uL RBC 3.26 L (3.80-5.40) m/uL Hgb 8.4 L (11.4-16.0) gm/dL Hct 28.4 L (34.0-46.0) % Plt Count 617 H (150-450) k/uL Current Medications Generic Name Dose Route Start Last Admin Trade Name Freq PRN Reason Stop Dose Admin Acetaminophen 650 mg 08/05/21 15:29 08/06/21 05:24 Acetaminophen Tab 325 Mg Tab PO 650 mg Q6HR PRN Administration Fever and/ or Pain Albuterol/Ipratropium 3 ml 08/05/21 16:00 08/06/21 11:42 Ipratropium-Albuterol 3 Ml Neb INHALATION 3 ml RT-Q4H LATESHA Administration Aspirin 81 mg 08/06/21 09:00 08/06/21 08:14 Aspirin 81 Mg PO 81 mg DAILY LATESHA Administration Budesonide 0.5 mg 08/05/21 20:00 08/06/21 08:05 Budesonide 0.5 Mg/2 Ml Nebu INHALATION 0.5 mg RT-BID LATESHA Administration Cholecalciferol 50 mcg 08/06/21 09:00 08/06/21 08:13 Cholecalciferol 25 Mcg (1000 Iu) Tablet PO 50 mcg DAILY LATESHA Administration Cyclobenzaprine HCl 10 mg 08/05/21 16:00 08/06/21 08:13 Cyclobenzaprine 10 Mg Tab PO 10 mg TID LATESHA Administration Duloxetine HCl 30 mg 08/06/21 09:00 08/06/21 08:15 Duloxetine Hcl 30 Mg Capsule.Dr PO 30 mg DAILY LATESHA Administration Ferrous Sulfate 325 mg 08/06/21 09:00 08/06/21 08:13 Ferrous Sulfate 325 Mg Tab PO 325 mg DAILY LATESHA Administration Fluticasone Propionate 1 spray 08/05/21 15:29 Fluticasone 50mcg/[place] Nasal 16gm EA NOSTRIL DAILY PRN Allergy Symptoms Formoterol Fumarate 20 mcg 08/05/21 20:00 08/06/21 08:05 Formoterol Fumarate 20 Mcg/2 Ml Nebu INHALATION 20 mcg RT-BID LATESHA Administration Furosemide 40 mg 08/06/21 09:00 08/06/21 08:14 Furosemide 40 Mg Tab PO 40 mg DAILY LATESHA Administration Lidocaine 1 patch 08/05/21 15:29 08/06/21 00:12 Lidocaine 5% Patch TOPICAL 1 patch DAILY PRN Administration Lower Back Pain Protocol Loratadine 10 mg 08/06/21 09:00 08/06/21 08:15 Loratadine 10 Mg Tab PO 10 mg DAILY LATESAH Administration Magnesium Oxide 200 mg 08/06/21 09:00 08/06/21 08:14 Magnesium Oxide 400 Mg Tab PO 200 mg DAILY LATESHA Administration Melatonin 3 mg 08/05/21 21:00 08/05/21 22:53 Melatonin 3 Mg Tablet PO 3 mg HS LATESHA Administration Meloxicam 15 mg 08/06/21 09:00 08/06/21 08:13 Meloxicam 7.5 Mg Tab PO 15 mg DAILY LATESHA Administration Montelukast Sodium 10 mg 08/05/21 21:00 08/05/21 22:53 Montelukast 10 Mg Tab PO 10 mg HS LATESHA Administration Multivitamins 1 each 08/06/21 09:00 08/06/21 08:14 Multivitamins, Thera 1 Each Tab PO 1 each DAILY LATESHA Administration Ondansetron HCl 4 mg 08/05/21 15:29 Ondansetron 4 Mg/2 Ml Vial IVP Q6HR PRN Nausea And Vomiting Pantoprazole Sodium 40 mg 08/06/21 07:30 08/06/21 08:14 Pantoprazole 40 Mg Tablet PO 40 mg DAILY@0730 LATESHA Administration Potassium Chloride 20 meq 08/06/21 09:00 08/06/21 08:14 Potassium Chloride Er 20 Meq Tab.Er PO 20 meq DAILY LATESHA Administration Prednisone 40 mg 08/06/21 09:00 08/06/21 08:12 Prednisone 20 Mg Tab PO 40 mg DAILY LATESHA Administration Ropinirole HCl 1 mg 08/05/21 21:00 08/05/21 22:53 Ropinirole Hcl 1 Mg Tab PO 1 mg HS LATESHA Administration Senna/Docusate Sodium 1 each 08/05/21 21:00 08/05/21 22:53 Sennosides-Docusate Sodium 1 Each Tab PO 1 each HS LATESHA Administration Theophylline 400 mg 08/05/21 21:00 08/06/21 00:13 Theophylline 24 Hour 400 Mg Cap.Er.24h PO 400 mg DAILY@2100 LATESHA Administration Verapamil HCl 120 mg 08/06/21 09:00 08/06/21 08:15 Verapamil Sr 120 Mg Tablet.Er PO 120 mg DAILY LATESHA Administration Intake and Output 08/05/21 08/06/21 08/06/21 22:59 06:59 14:59 Other: Voiding Method Toilet # Voids 2 Weight 72.121 kg 08/06/21 09:47 08/05/21 12:16
[2021-08-06] MEDS: MONTELUKAST 10 MG TAB PO SCH (21:16)
[2021-08-06] MEDS: SENNOSIDES-DOCUSATE SODIUM 1 EACH TAB PO SCH (21:16)
[2021-08-06] MEDS: MELATONIN 3 MG TABLET PO SCH (21:16)
[2021-08-07] MEDS: IPRATROPIUM-ALBUTEROL 3 ML NEB INHALATION SCH ×7 (00:32→23:48)
[2021-08-07] MEDS ORDERED: ALPRAZolam 0.5 MG TAB PO STA (02:02)
[2021-08-07] MEDS: FORMOTEROL FUMARATE 20 MCG/2 ML NEBU INHALATION SCH ×2 (07:35→19:58)
[2021-08-07] MEDS: BUDESONIDE 0.5 MG/2 ML NEBU INHALATION SCH ×2 (07:35→19:58)
[2021-08-07] MEDS: MELOXICAM 7.5 MG TAB PO SCH (08:57)
[2021-08-07] MEDS: FERROUS SULFATE 325 MG TAB PO SCH (08:57)
[2021-08-07] MEDS: CYCLOBENZAPRINE 10 MG TAB PO SCH ×3 (08:57→22:31)
[2021-08-07] MEDS: FUROSEMIDE 40 MG TAB PO SCH (08:57)
[2021-08-07] MEDS: MAGNESIUM OXIDE 400 MG TAB PO SCH (08:58)
[2021-08-07] MEDS: CHOLECALCIFEROL 25 MCG (1000 IU) TABLET PO SCH (08:59)
[2021-08-07] MEDS: predniSONE 20 MG TAB PO SCH (08:59)
[2021-08-07] MEDS: ASPIRIN 81 MG PO SCH (09:00)
[2021-08-07] MEDS: PANTOPRAZOLE 40 MG TABLET PO SCH (09:00)
[2021-08-07] MEDS: LORATADINE 10 MG TAB PO SCH (09:29)
[2021-08-07] MEDS: MULTIVITAMINS, THERA 1 EACH TAB PO SCH (09:29)
[2021-08-07] MEDS: POTASSIUM CHLORIDE ER 20 MEQ TAB.ER PO SCH (09:29)
[2021-08-07] MEDS: DULoxetine HCL 30 MG CAPSULE.DR PO SCH (09:29)
[2021-08-07] MEDS: VERAPAMIL SR 120 MG TABLET.ER PO SCH (09:29)
--- NOTE | 2021-08-07 13:01 | P.PN ---
Subjective Progress Note Date: 08/07/21 Principal diagnosis: COPD Excerbation This is Ananth Martino NP dictating a progress note on this patient on behalf of Dr. Rodriguez. The patient was interviewed and examined. Patient is a pleasant 66-year-old female who initially presented to the hospital with COPD exacerbation. Patient is reporting chest pain while in the hospital. Patient states that she's had intermittent chest pain it's gone from the left side around to her back. She states the pain started last week. The pain and intermittent and not constant. She describes it as a dull ache that goes around the left side into her back. Patient does see Dr. Ferrer. Patient's tr oponins were checked and were negative. Patient is also reporting that she's having recurrent falling, where she'll be walking and noticing that she's going to possibly fall, she reports that she'll go and sit down for the symptoms. The patient does not pass out during these episodes. Patient has a history of hypertension. She has had no stents. 08/07/2021-patient continues to complain of chest pain during the night. Patient does state that most of this pain happens when she moves or breathes deep. Orthostatic vital signs from yesterday were positive as this patient had a systolic starting in the 160 lying dropping to 121 standing. Patient's heart rate also remained tachycardic from 100-125 bpm. Waiting to have an echo ordered that will most likely be completed tomorrow. Nursing did complete another EKG overnight due to the chest pain, which compared to the original EKG from ER doesn't demonstrate any acute changes. GENERAL: Well-appearing, well-nourished and in no acute distress. NECK: Supple without JVD or thyromegaly. LUNGS: Breath sounds expiratory wheezing in all guzman bilaterally. Respiration equal and unlabored. No rales or rhonchi. HEART: Regular rate and rhythm without murmurs, rubs or gallops. S1 and S2 heard. EXTREMITIES: Normal range of motion, no edema. No clubbing or cyanosis. Peripheral pulses intact and strong. VITALS: [Temp 98.6, pulse rate 104, respirations 20, blood pressure 152/70, oxygen saturation 100% on 4 L nasal cannula] TELEMETRY: [Sinus tachycardia] LABS: [White count 21, hemoglobin 8.4, PT 9.4, INR 0.9, APTT 21.1, sodium 139, potassium 3.9, B1 17, creatinine 0.62, magnesium 2.0, troponin 2-less than 0.012, BNP 453] IMPRESSION/PLAN: [1. Atypical chest pain-awaiting echocardiogram. It is felt at this time the patient may be experiencing chest pain due to an increased difficulty in breathing related to her COPD exacerbation. 2. Positive orthostatic blood pressures-continue verapamil. Limit patient's salt intake and encourage oral hydration.] Thank you for allowing us to follow this patient. Objective - Vital Signs Vital signs: Vital Signs Temp 98.0 F 08/07/21 08:00 Pulse 109 H 08/07/21 09:27 Resp 20 08/07/21 08:00 BP 151/79 08/07/21 09:27 Pulse Ox 100 08/07/21 09:27 Intake & Output 08/06/21 08/07/21 08/07/21 18:59 06:59 18:59 Intake Total 1460 Balance 1460 Intake: Oral 1460 Other: Voiding Method Toilet Toilet Toilet # Voids 4 - Labs CBC & Chem 7: 08/06/21 09:47 08/05/21 12:16
[2021-08-07] MEDS: ACETAMINOPHEN TAB 325 MG TAB PO PRN ×2 (14:07→20:35)
--- NOTE | 2021-08-07 16:25 | P.PN ---
Subjective Patient is still complaining of atypical chest pain today. Repeat EKG showed no acute changes. Objective - Vital Signs Vital signs: Vital Signs Temp 98.4 F 08/07/21 14:00 Pulse 110 H 08/07/21 15:31 Resp 18 08/07/21 14:00 BP 150/73 08/07/21 15:21 Pulse Ox 96 08/07/21 15:21 Intake & Output 08/06/21 08/07/21 08/07/21 18:59 06:59 18:59 Intake Total 1460 Balance 1460 Intake: Oral 1460 Other: Voiding Method Toilet Toilet Toilet # Voids 4 - Exam General: The patient is awake and alert, in no distress Eye: there is normal conjunctiva bilaterally. Neck: The neck is supple, there is no JVD. Cardiovascular: Normal S1-S2, no S3-S4, no murmurs. Respiratory: Lungs with end expiratory wheezing all over Gastrointestinal: Abdomen is soft, nontender Musculoskeletal: There is no pedal edema. Neurological:. Speech is normal. Skin: Skin is warm and dry - Labs CBC & Chem 7: 08/06/21 09:47 08/05/21 12:16 Assessment and Plan Assessment: 1. Chest pain, atypical in nature. ACS ruled out. Twelve-lead EKG with no acute ischemic changes. Serial troponin negative 2 sets. Patient was seen and evaluated by cardiology. Echocardiogram ordered. 2. Acute COPD exacerbation, continue bronchodilators. Patient received Solu- Medrol 125 mg IV in the ER. Continue prednisone 40 mg daily 3. Chronic hypoxic respiratory failure on home O2 4. Chronic medical problems: Hypertension, underlying seizure disorder, chronic back pain Today, I reviewed her medication list and lab work results. Continue current regimen. Encouraged ambulation. Anticipate discharge when cleared by cardiology
[2021-08-07] MEDS: MONTELUKAST 10 MG TAB PO SCH (20:34)
[2021-08-07] MEDS: MELATONIN 3 MG TABLET PO SCH (20:34)
[2021-08-07] MEDS: THEOPHYLLINE 24 HOUR 400 MG CAP.ER.24H PO SCH (20:35)
[2021-08-07] MEDS: SENNOSIDES-DOCUSATE SODIUM 1 EACH TAB PO SCH (20:35)
[2021-08-07] MEDS: LIDOCAINE 5% PATCH TOPICAL PRN (20:42)
[2021-08-08] MEDS: IPRATROPIUM-ALBUTEROL 3 ML NEB INHALATION SCH ×3 (03:32→11:46)
[2021-08-08] MEDS: ACETAMINOPHEN TAB 325 MG TAB PO PRN ×2 (04:17→13:23)
[2021-08-08] MEDS ORDERED: MORPHINE SULFATE 4 MG/ML SYRINGE IVP STA (06:03)
[2021-08-08] MEDS: FORMOTEROL FUMARATE 20 MCG/2 ML NEBU INHALATION SCH (08:18)
[2021-08-08] MEDS: BUDESONIDE 0.5 MG/2 ML NEBU INHALATION SCH (08:18)
[2021-08-08 08:29] VITALS: BP 146/64; RESP 18; TEMP 97
[2021-08-08] MEDS: predniSONE 20 MG TAB PO SCH (08:36)
[2021-08-08] MEDS: FUROSEMIDE 40 MG TAB PO SCH (08:37)
[2021-08-08] MEDS: VERAPAMIL SR 120 MG TABLET.ER PO SCH (08:37)
[2021-08-08] MEDS: LORATADINE 10 MG TAB PO SCH (08:37)
[2021-08-08] MEDS: MULTIVITAMINS, THERA 1 EACH TAB PO SCH (08:37)
[2021-08-08] MEDS: CHOLECALCIFEROL 25 MCG (1000 IU) TABLET PO SCH (08:37)
[2021-08-08] MEDS: DULoxetine HCL 30 MG CAPSULE.DR PO SCH (08:37)
[2021-08-08] MEDS: ASPIRIN 81 MG PO SCH (08:37)
[2021-08-08] MEDS: FERROUS SULFATE 325 MG TAB PO SCH (08:37)
[2021-08-08] MEDS: MAGNESIUM OXIDE 400 MG TAB PO SCH (08:37)
[2021-08-08] MEDS: MELOXICAM 7.5 MG TAB PO SCH (08:37)
[2021-08-08] MEDS: CYCLOBENZAPRINE 10 MG TAB PO SCH (08:37)
[2021-08-08] MEDS: POTASSIUM CHLORIDE ER 20 MEQ TAB.ER PO SCH (08:38)
[2021-08-08] MEDS: PANTOPRAZOLE 40 MG TABLET PO SCH (08:38)
[2021-08-08 09:58] LABS: African American GFR (CKD) 81 (>60 ml/min/1.73 sqM); Anion Gap 5 mmol/L; Blood Urea Nitrogen 26 mg/dL (7-17); Calcium 9.8 mg/dL (8.4-10.2); Carbon Dioxide 39 mmol/L (22-30); Chloride 98 mmol/L (98-107); Glucose 123 mg/dL (74-99); Non-African American GFR(CKD) 70 (>60 ml/min/1.73 sqM); Potassium 4.4 mmol/L (3.5-5.1); Sodium 142 mmol/L (137-145)
[2021-08-08 10:19] LABS: Anisocytosis Slight; Basophils # (A) 0.1 k/uL (0-0.2); Basophils % (A) 0 %; Eosinophils # (A) 0.1 k/uL (0-0.7); Eosinophils % (A) 1 %; HCT 32.3 % (34.0-46.0); HGB 9.3 gm/dL (11.4-16.0); Hypochromasia Marked; Lymphocytes # (A) 2.5 k/uL (1.0-4.8); Lymphocytes % (A) 10 %; MCH 25.5 pg (25.0-35.0); MCHC 28.9 g/dL (31.0-37.0); MCV 88.2 fL (80.0-100.0); Mean Platelet Volume 8.6; Monocytes # (A) 0.8 k/uL (0-1.0); Monocytes % (A) 3 %; Neutrophils # (A) 20.5 k/uL (1.3-7.7); Neutrophils % (A) 85 %; Platelet Count 609 k/uL (150-450); RBC 3.66 m/uL (3.80-5.40); RDW 17.9 % (11.5-15.5); WBC 24.2 k/uL (3.8-10.6)
[2021-08-08 10:45] LABS: Magnesium 2.2 mg/dL (1.6-2.3)
[2021-08-08 11:59] VITALS: PULSE 101
--- NOTE | 2021-08-08 12:04 | ECHOF ---
Referral Reason:Chest pain MEASUREMENTS -------- HEIGHT: 154.9 cm WEIGHT: 72.1 kg BP: IVSd: 1.3 cm (0.6 - 1.1) LVIDd: 2.4 cm (3.9 - 5.3) LVPWd: 1.2 cm (0.6 - 1.1) IVSs: 1.5 cm LVIDs: 1.6 cm LVPWs: 1.3 cm MV E Jono: 0.83 m/s MV DecT: 154 ms MV A Jono: 1.59 m/s MV E/A Ratio: 0.52 AV maxP.60 mmHg AV maxP.60 mmHg AV meanP.03 mmHg RAP: 5.00 mmHg RVSP: 12.23 mmHg FINDINGS -------- This was a technically difficult study with suboptimal views. The left ventricular size is normal. There is mild concentric left ventricular hypertrophy. Overa ll left ventricular systolic function is normal with, an EF between 55 - 60 %. The RV was not well visualized. The left atrial size is normal. The right atrium was not well visualized. Lumason used The aortic valve was not well visualized. Peak/mean gradient across the Aortic Valve is 14.60mmHg / 8.03mmHg. The mitral valve was not well visualized. There is trace mitral regurgitation. The tricuspid valve was not well visualized. Trace tricuspid regurgitation present. Right ventric ular systolic pressure is normal at < 35 mmHg. The pulmonic valve was not well visualized. The aortic root size is normal. IVC Not well visulized. There is no pericardial effusion. CONCLUSIONS -------- 1. The left ventricular size is normal. 2. There is mild concentric left ventricular hypertrophy. 3. Overall left ventricular systolic function is normal with, an EF between 55 - 60 %. 4. Peak/mean gradient across the Aortic Valve is 14.60mmHg / 8.03mmHg. 5. Trace tricuspid regurgitation present. 6. There is no pericardial effusion. RESIDENTIAL CAREGIVER: Steffany Olivas, [facility]
--- NOTE | 2021-08-08 12:42 | P.DS ---
Providers Date of admission: 08/05/21 14:13 Expected date of discharge: 08/08/21 Attending physician: Tosha Earl Consults: 08/05/21 15:36 Consult Physician Routine Consulting Provider: Mary Beth Marquez Consult Reason/Comments: Chest pain Do you want consulting provider notified?: Yes Primary care physician: [facility] Course: This is a 66-year-old female with past medical history noted below. Presented to the emergency room with chest pain. Patient was evaluated in the ER and admitted to the hospital for further management of her medical problems noted below. 1. Chest pain, atypical in nature. ACS ruled out. Twelve-lead EKG with no acute ischemic changes. Serial troponin negative 2 sets. Patient was seen and evaluated by cardiology. Echocardiogram showed preserved ejection fraction with no significant valvular or wall motion abnormalities. No further recommendations by cardiology. 2. Acute COPD exacerbation, continue bronchodilators. Patient received Solu- Medrol 125 mg IV in the ER. Continue prednisone tapering course as prescribed 3. Chronic hypoxic respiratory failure on home O2 4. Chronic medical problems: Hypertension, underlying seizure disorder, chronic back pain Today, I reviewed her medication list and lab work results. Patient is feeling a lot better today. She will be discharged home in a stable condition General: The patient is awake and alert, in no distress Eye: there is normal conjunctiva bilaterally. Neck: The neck is supple, there is no JVD. Cardiovascular: Normal S1-S2, no S3-S4, no murmurs. Respiratory: Lungs with scattered wheezing Gastrointestinal: Abdomen is soft, nontender Musculoskeletal: There is no pedal edema. Neurological:. Speech is normal. Skin: Skin is warm and dry Patient Condition at Discharge: Serious Plan - Discharge Summary Discharge Rx Participant: Yes New Discharge Prescriptions: New predniSONE 0 mg PO DIRECTED #30 tab Continue Cholecalciferol [Vitamin D3 (25 Mcg = 1000 Iu)] 2,000 mcg PO DAILY Fluticasone Nasal [place] [Flonase Nasal [place]] 1 spr EA NOSTRIL DAILY PRN PRN Reason: Allergy Symptoms Pantoprazole Sodium [Protonix] 40 mg PO DAILY Multivitamins, Thera [Multivitamin (formulary)] 1 tab PO DAILY DULoxetine HCL [Cymbalta] 30 mg PO DAILY Montelukast [Singulair] 10 mg PO HS Loratadine [Claritin] 10 mg PO DAILY Aspirin 81 mg PO DAILY #30 chew Furosemide [Lasix] 40 mg PO DAILY #30 tablet Formoterol Fumarate [Perforomist] 20 mcg INHALATION RT-BID #30 ml Sennosides/Docusate Sodium [Senna Plus 8.6-50 mg Tablet] 1 tab PO HS Cyclobenzaprine [Flexeril] 10 mg PO TID Theophylline Er 400mg Tab 200 mg PO BID rOPINIRole HCL [Requip] 1 mg PO HS Meloxicam 15 mg PO DAILY Ipratropium-Albuterol Nebulize [Duoneb 0.5 mg-3 mg/3 ml Soln] 3 ml INHALATION RT-QID PRN PRN Reason: Shortness Of Breath Lidocaine 5% Patch [Lidoderm 5% Patch] 1 patch TRANSDERM DAILY PRN PRN Reason: Lower Back Pain Ferrous Sulfate [Iron (65 MG Elemental)] 325 mg PO DAILY Magnesium Oxide [Mag-Ox] 200 mg PO DAILY Potassium Chloride [Klor-Con 20] 20 meq PO DAILY Verapamil HCl [Verapamil ER] 120 mg PO DAILY Melatonin 3 mg PO HS predniSONE 5 mg PO DIRECTED Albuterol Sulfate [Proair Hfa] 2 puff INHALATION RT-QID PRN PRN Reason: Shortness Of Breath Budesonide [Pulmicort] 1 mg INHALATION RT-BID PRN PRN Reason: Shortness Of Breath Discontinued predniSONE 40 mg PO DAILY Budesonide [Pulmicort Flexhaler] 2 puff INHALATION RT-BID PRN PRN Reason: Shortness Of Breath Discharge Medication List Cholecalciferol [Vitamin D3 (25 Mcg = 1000 Iu)] 2,000 mcg PO DAILY 04/08/20 [History] Fluticasone Nasal [place] [Flonase Nasal [place]] 1 spr EA NOSTRIL DAILY PRN 12/30/20 [History] Multivitamins, Thera [Multivitamin (formulary)] 1 tab PO DAILY 12/30/20 [History] Pantoprazole Sodium [Protonix] 40 mg PO DAILY 12/30/20 [History] DULoxetine HCL [Cymbalta] 30 mg PO DAILY 01/15/21 [History] Montelukast [Singulair] 10 mg PO HS 02/19/21 [History] Loratadine [Claritin] 10 mg PO DAILY 04/24/21 [History] Ipratropium-Albuterol Nebulize [Duoneb 0.5 mg-3 mg/3 ml Soln] 3 ml INHALATION RT-QID PRN 05/22/21 [History] Lidocaine 5% Patch [Lidoderm 5% Patch] 1 patch TRANSDERM DAILY PRN 05/22/21 [History] Aspirin 81 mg PO DAILY #30 chew 05/26/21 [Rx] Furosemide [Lasix] 40 mg PO DAILY #30 tablet 06/10/21 [Rx] Ferrous Sulfate [Iron (65 MG Elemental)] 325 mg PO DAILY 07/04/21 [History] Formoterol Fumarate [Perforomist] 20 mcg INHALATION RT-BID #30 ml 07/06/21 [Rx] Magnesium Oxide [Mag-Ox] 200 mg PO DAILY 07/14/21 [History] Potassium Chloride [Klor-Con 20] 20 meq PO DAILY 07/14/21 [History] Sennosides/Docusate Sodium [Senna Plus 8.6-50 mg Tablet] 1 tab PO HS 07/14/21 [History] Albuterol Sulfate [Proair Hfa] 2 puff INHALATION RT-QID PRN 08/05/21 [History] Budesonide [Pulmicort] 1 mg INHALATION RT-BID PRN 08/05/21 [History] Cyclobenzaprine [Flexeril] 10 mg PO TID 08/05/21 [History] Melatonin 3 mg PO HS 08/05/21 [History] Meloxicam 15 mg PO DAILY 08/05/21 [History] Theophylline Er 400mg Tab 200 mg PO BID 08/05/21 [History] Verapamil HCl [Verapamil ER] 120 mg PO DAILY 08/05/21 [History] predniSONE 5 mg PO DIRECTED 08/05/21 [History] rOPINIRole HCL [Requip] 1 mg PO HS 08/05/21 [History] predniSONE 0 mg PO DIRECTED #30 tab 08/08/21 [Rx] Follow up Appointment(s)/Referral(s): Gavin Riggs [Primary Care Provider] - 1-2 days Discharge Disposition: HOME SELF-CARE
--- NOTE | 2021-08-08 13:15 | P.PN ---
Subjective Patient is a pleasant 66-year-old female history of hypertension, COPD. Patient initially presented to the hospital with COPD exacerbation. She follows with Dr. Ferrer. Patient is reporting chest pain while in the hospital. Patient states that she's had intermittent chest pain it's gone from the left side around to her back. She states the pain started last week. The pain and intermittent and not constant. She describes it as a dull ache that goes around the left side into her back. Patient's troponins were checked and were negative. Patient is also reporting that she's having recurrent falling, where she'll be walking and noticing that she's going to possibly fall, she reports that she'll go and sit down for the symptoms. The patient does not pass out during these episodes. Patient seen and examined at bedside, no acute distress. Blood pressure 146/64, heart rate 93, afebrile, maintaining saturations on 4 L nasal cannula. Echocardiogram revealed EF 5560 percent. D reviewed the previous he 24, hemoglobin 9.3, platelets 609, sodium 142, potassium 4.4, BUN 26, serum creatinine 0.8, troponin negative x 2. She is currently maintained on aspirin 80 mg daily, verapamil 120 mg daily GENERAL: Well-appearing, well-nourished and in no acute distress. NECK: Supple without JVD or thyromegaly. LUNGS: Breath sounds expiratory wheezing in all guzman bilaterally. Respiration equal and unlabored. No rales or rhonchi. HEART: Regular rate and rhythm without murmurs, rubs or gallops. S1 and S2 heard. EXTREMITIES: Normal range of motion, no edema. No clubbing or cyanosis. Peripheral pulses intact and strong. ASSESSMENT: Chest Pain, atypical acute coronary syndrome has been ruled out COPD exacerbation Orthostatic hypotension History of hypertension PLAN: 2D echocardiogram with EF 55-60%. From a cardiology perspective, no further recommendations or cardiac workup at this time. We will follow the patient as needed. Please reach out with further questions or concerns. Continue home cardiac medications. Follow up with Dr. Ferrer outpatient. Thank you for allowing us to follow this patient. Objective - Vital Signs Vital signs: Vital Signs Temp 97.0 F L 08/08/21 08:00 Pulse 101 H 08/08/21 11:58 Resp 18 08/08/21 08:00 BP 146/64 08/08/21 08:00 Pulse Ox 92 L 08/08/21 08:18 Intake & Output 08/07/21 08/08/21 08/08/21 18:59 06:59 18:59 Intake Total 400 Balance 400 Intake: Oral 400 Other: Voiding Method Toilet Toilet Toilet # Voids 2 - Labs CBC & Chem 7: 08/08/21 08:57 08/08/21 08:57 Labs: Abnormal Lab Results - Last 24 Hours (Table) 08/08/21 08/08/21 Range/Units 08:57 08:57 WBC 24.2 H (3.8-10.6) k/uL RBC 3.66 L (3.80-5.40) m/uL Hgb 9.3 L (11.4-16.0) gm/dL Hct 32.3 L (34.0-46.0) % MCHC 28.9 L (31.0-37.0) g/dL RDW 17.9 H (11.5-15.5) % Plt Count 609 H (150-450) k/uL Neutrophils # 20.5 H (1.3-7.7) k/uL Carbon Dioxide 39 H (22-30) mmol/L BUN 26 H (7-17) mg/dL Glucose 123 H (74-99) mg/dL
== END 2021-08-08 14:07 | disposition home or self-care (01) | DRG 190 ==
LOC: EC 11:10 → 4SSUR 14:13
PROVIDERS: ADMIT Internal Medicine; ATTEND Internal Medicine
DX: J44.1 Chronic obstructive pulmonary disease with (acute) exacerbation (principal); J18.9 Pneumonia, unspecified organism; J96.11 Chronic respiratory failure with hypoxia; Z99.81 Dependence on supplemental oxygen; Z76.82 Awaiting organ transplant status; Z79.899 Other long term (current) drug therapy; J44.0 Chronic obstructive pulmonary disease with (acute) lower respiratory infection; I10 Essential (primary) hypertension; Z79.82 Long term (current) use of aspirin; F41.9 Anxiety disorder, unspecified; F90.9 Attention-deficit hyperactivity disorder, unspecified type; G25.81 Restless legs syndrome; G40.909 Epilepsy, unspecified, not intractable, without status epilepticus; G89.29 Other chronic pain; Z20.822 Contact with and (suspected) exposure to COVID-19; R07.89 Other chest pain; R29.6 Repeated falls; H91.90 Unspecified hearing loss, unspecified ear; M54.9 Dorsalgia, unspecified; I95.1 Orthostatic hypotension; M06.9 Rheumatoid arthritis, unspecified; M85.88 Other specified disorders of bone density and structure, other site; Z79.1 Long term (current) use of non-steroidal anti-inflammatories (NSAID); Z86.16 Personal history of COVID-19; Z85.038 Personal history of other malignant neoplasm of large intestine; Z85.44 Personal history of malignant neoplasm of other female genital organs; Z87.891 Personal history of nicotine dependence; Z90.710 Acquired absence of both cervix and uterus; Z90.721 Acquired absence of ovaries, unilateral; Z96.651 Presence of right artificial knee joint; Z97.4 Presence of external hearing-aid; Z91.81 History of falling; Z86.718 Personal history of other venous thrombosis and embolism; Z87.19 Personal history of other diseases of the digestive system
CPT/HCPCS: 36415; 71046; 80048; 80053; 83735; 83880; 84484; 85025; 85610; 85730; 87635; 93005; 93306; 94640; 94760; 99285

== ENCOUNTER 2021-09-01 12:00 | Emergency (ER) | payer MEDICARE, OTHER ==
[2021-09-01 12:06] VITALS: TEMP 97
[2021-09-01] MEDS ORDERED: methylPREDNISolone SOD SUCCI 125 MG/2 ML VIAL IV STA (13:10)
[2021-09-01] MEDS ORDERED: IPRATROPIUM-ALBUTEROL 3 ML NEB INHALATION STA (13:10)
[2021-09-01 13:55] VITALS: RESP 18
[2021-09-01 13:59] LABS: ALT 15 U/L (4-34); AST 19 U/L (14-36); African American GFR (CKD) >90 (>60 ml/min/1.73 sqM); Albumin 3.8 g/dL (3.5-5.0); Alkaline Phosphatase 119 U/L (38-126); Blood Urea Nitrogen 15 mg/dL (7-17); Calcium 9.7 mg/dL (8.4-10.2); Chloride 95 mmol/L (98-107); Glucose 139 mg/dL (74-99); Magnesium 1.9 mg/dL (1.6-2.3); Non-African American GFR(CKD) >90 (>60 ml/min/1.73 sqM); Potassium 3.9 mmol/L (3.5-5.1); Sodium 141 mmol/L (137-145); Total Bilirubin 0.3 mg/dL (0.2-1.3); Total Protein 6.7 g/dL (6.3-8.2)
[2021-09-01 14:00] LABS: Anisocytosis Slight; Basophils % (A) 0 %; Eosinophils # (A) 0.2 k/uL (0-0.7); Eosinophils % (A) 2 %; HCT 35.8 % (34.0-46.0); HGB 9.7 gm/dL (11.4-16.0); Hypochromasia Marked; Lymphocytes # (A) 0.7 k/uL (1.0-4.8); Lymphocytes % (A) 5 %; MCH 25.7 pg (25.0-35.0); MCHC 27.2 g/dL (31.0-37.0); Mean Platelet Volume 7.7; Monocytes # (A) 0.5 k/uL (0-1.0); Monocytes % (A) 3 %; Neutrophils # (A) 12.4 k/uL (1.3-7.7); Neutrophils % (A) 88 %; Platelet Count 383 k/uL (150-450); Poikilocytosis Slight; RBC 3.78 m/uL (3.80-5.40); RDW 18.9 % (11.5-15.5); WBC 14.1 k/uL (3.8-10.6)
[2021-09-01 14:03] LABS: INR 0.9 (<1.2); Prothrombin Time 9.6 sec (9.0-12.0)
[2021-09-01 14:04] LABS: MCV 94.6 fL (80.0-100.0)
[2021-09-01 14:05] LABS: Anion Gap 7 mmol/L
[2021-09-01 14:09] LABS: Appearance,Urine Clear (Clear); Bilirubin,Urine Negative (Negative); Blood,Urine Negative (Negative); Color,Urine Yellow; Glucose,Urine (UA) Negative (Negative); Hyaline Casts,Urine 16 /lpf (0-2); Ketones,Urine Negative (Negative); Leukocyte Esterase,Urine Moderate (Negative); Mucus,Urine Rare /hpf; Nitrite,Urine Negative (Negative); PH, Urine 5.5 (5.0-8.0); Protein,Urine Negative (Negative); RBC,Urine 1 /hpf (0-5); Specific Gravity,Urine 1.015 (1.001-1.035); Squamous Epithelial Cell,Urine 1 /hpf (0-4); Urobilinogen,Urine <2.0 mg/dL (<2.0); WBC,Urine 7 /hpf (0-5)
--- NOTE | 2021-09-01 14:11 | XR ---
EXAMINATION TYPE: XR chest 2V DATE OF EXAM: 09/01/2021 COMPARISON: CXR 08/05/2021. HISTORY: DOMI. TECHNIQUE: Frontal and lateral views of the chest are obtained. FINDINGS: There is chronic parenchymal change greatest right midlung without suspicious focal air sp gael opacity, pleural effusion, or pneumothorax seen. Poor inspiration on current study. Cardiomegaly is redemonstrated. New overlying Loop recorder. The osseous structures are demineralized. Mild compression type fracture deformity ne ar thoracolumbar junction redemonstrated 3 levels above vertebroplasty. IMPRESSION: Chronic changes and cardiomegaly without acute pulmonary process.
[2021-09-01 14:22] LABS: Carbon Dioxide 39 mmol/L (22-30)
--- NOTE | 2021-09-01 15:22 | ED ---
SOB HPI - General Source: patient, family, RN notes reviewed, old records reviewed Mode of arrival: wheelchair Limitations: no limitations <Lorri Alvarado - Last Filed: 09/01/21 18:27> <Gretchen Spencer - Last Filed: 09/04/21 01:03 EDT> - General Chief Complaint: Shortness of Breath Stated Complaint: SOB/falls Time Seen by Provider: 09/01/21 12:46 - History of Present Illness Initial Comments: Patient is a 66-year-old female with history of COPD, on 3 L at home, hypertension, presenting to the emergency department for increasing shortness of breath. A visiting nurse stated that her pulse ox was too low and sent her in for evaluation. She states she's been feeling a little bit worse over the past couple days. She did cancel an appointment with Dr. Goodman 3 days ago. She states she is having back pain and could not make that appointment. She has another appointment tomorrow. She denies any fevers or chills, no abdominal pain, no nausea or vomiting. She denies any chest pains. She has no further complaints. Upon arrival to the ER, she has slightly tachycardia at 110, 90% on 3 L. (Lorri Alvarado) - Related Data Home Medications Medication Instructions Recorded Confirmed Cholecalciferol [Vitamin D3 (25 50 mcg PO DAILY 04/08/20 09/01/21 Mcg = 1000 Iu)] Multivitamins, Thera [Multivitamin 1 tab PO DAILY 12/30/20 09/01/21 (formulary)] Pantoprazole Sodium [Protonix] 40 mg PO DAILY 12/30/20 09/01/21 DULoxetine HCL [Cymbalta] 30 mg PO DAILY 01/15/21 09/01/21 Montelukast [Singulair] 10 mg PO HS 02/19/21 09/01/21 Loratadine [Claritin] 10 mg PO HS 04/24/21 09/01/21 Ipratropium-Albuterol Nebulize 3 ml INHALATION RT-QID PRN 05/22/21 09/01/21 [Duoneb 0.5 mg-3 mg/3 ml Soln] Ferrous Sulfate [Iron (65 MG 325 mg PO DAILY 07/04/21 09/01/21 Elemental)] Magnesium Oxide [Mag-Ox] 200 mg PO DAILY 07/14/21 09/01/21 Potassium Chloride [Klor-Con 20] 20 meq PO DAILY 07/14/21 09/01/21 Budesonide [Pulmicort] 1 mg INHALATION RT-BID 08/05/21 09/01/21 Meloxicam 15 mg PO DAILY 08/05/21 09/01/21 Verapamil HCl [Verapamil ER] 120 mg PO DAILY 08/05/21 09/01/21 predniSONE 5 mg PO DAILY 08/05/21 09/01/21 rOPINIRole HCL [Requip] 1 mg PO HS 08/05/21 09/01/21 Diazepam [Valium] 5 mg PO BID 09/01/21 09/01/21 Theophylline Anhydrous 200 mg PO BID 09/01/21 09/01/21 [Theophylline] guaiFENesin [Mucinex] 1,200 mg PO BID 09/01/21 09/01/21 Previous Rx's Medication Instructions Recorded Aspirin 81 mg PO DAILY #30 chew 05/26/21 Furosemide [Lasix] 40 mg PO DAILY #30 tablet 06/10/21 Formoterol Fumarate [Perforomist] 20 mcg INHALATION RT-BID #30 ml 07/06/21 Allergies Allergy/AdvReac Type Severity Reaction Status Date / Time infliximab [From Remicade] Allergy Dyspnea/HIV Verified 09/01/21 12:06 ES propoxyphene [From Darvon] Allergy Rash/Hives Verified 09/01/21 12:06 adhesive tape AdvReac "is hard Verified 09/01/21 12:06 on skin" Review of Systems ROS Other: All systems not noted in ROS Statement are negative. <Lorri Alvarado - Last Filed: 09/01/21 18:27> ROS Other: All systems not noted in ROS Statement are negative. <Gretchen Spencer - Last Filed: 09/04/21 01:03 EDT> ROS Statement: Those systems with pertinent positive or pertinent negative responses have been documented in the HPI. Past Medical History Past Medical History: Cancer, COPD, Deep Vein Thrombosis (DVT), Hearing Disorder / Deafness, Hypertension, Pneumonia, Rheumatoid Arthritis (RA) Additional Past Medical History / Comment(s): Bilateral hearing aid use. Colitis, Osteopenia, hx cancer of appendix, uses oxygen 3L continuous, chronic back pain, restless leg. 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 Hx Covid 01/16. History of Any Multi-Drug Resistant Organisms: MRSA Date of last positivie culture/infection: february 2021 MDRO Source:: urine Past Surgical History: Appendectomy, Bowel Resection, Hysterectomy, Joint Replacement, Orthopedic Surgery Additional Past Surgical History / Comment(s): Right knee replacement, EGD/c olonoscopy, lasik eye surgery, right colectomy, colonoscopy, pain procedure at [facility] with Dr Ty [facility] with unilateral oophorectomy, partial vulvectomy, Kyphoplasty. Past Anesthesia/Blood Transfusion Reactions: No Reported Reaction Additional Past Anesthesia/Blood Transfusion Reaction / Comment(s): States is not supposed to have general anesthesia. "Cannot have tube in throat." Past Psychological History: ADD/ADHD, Anxiety, Depression Smoking Status: Former smoker Past Alcohol Use History: None Reported Past Drug Use History: None Reported - Past Family History Father Family Medical History: Cancer, COPD Additional Family Medical History / Comment(s): COLON cancer. Mother Family Medical History: Cancer Additional Family Medical History / Comment(s): ESOPHAGUS cancer. Sister(s) Family Medical History: Cancer Additional Family Medical History / Comment(s): CERVICAL cancer, basal cell cancer. <Lorri Alvarado L - Last Filed: 09/01/21 18:27> General Exam Limitations: no limitations <Lorri Alvarado - Last Filed: 09/01/21 18:27> - General Exam Comments Initial Comments: GENERAL: Patient is well-developed and well-nourished. Patient is nontoxic and in no acute distress. HEAD: Atraumatic, normocephalic. EYES: Pupils equal round and reactive to light, extraocular movements intact, sclera anicteric, conjunctiva are normal. Eyelids were unremarkable. ENT: Nares patent, oropharynx clear without exudates. Moist mucous membranes. NECK: Normal range of motion, supple without lymphadenopathy or JVD. LUNGS: Mildly labored respirations. Breath sounds clear to auscultation bilaterally and equal. No wheezes rales or rhonchi. HEART: Tachycardia rate and rhythm without murmurs, rubs or gallops. ABDOMEN: Soft, nontender, normoactive bowel sounds. No guarding, no rebound. No masses appreciated. MUSCULOSKELETAL: Normal extremities with adequate strength and normal range of motion, no pitting or edema. No clubbing or cyanosis. NEUROLOGICAL: Patient is alert and oriented x 3. Motor and sensory are also intact. Cranial nerves II through XII grossly intact. Symmetrical smile. Normal speech, normal gait. PSYCH: Normal mood, normal affect. SKIN: Warm, Dry, normal turgor, no rashes.. Mild bruising noted to the right distal foot. (Lorri Alvarado) Course Vital Signs 09/01/21 09/01/21 09/01/21 12:01 13:07 13:54 Temperature 97.0 F L Pulse Rate 110 H Respiratory 20 24 18 Rate Blood Pressure 121/81 O2 Sat by Pulse 86 L Oximetry 09/01/21 09/01/21 09/01/21 14:44 14:53 14:54 Temperature Pulse Rate 104 H 112 H 100 Respiratory 18 Rate Blood Pressure 136/88 O2 Sat by Pulse 98 Oximetry 09/01/21 09/01/21 16:00 16:34 Temperature 97.0 F L Pulse Rate 94 94 Respiratory 18 18 Rate Blood Pressure 148/74 O2 Sat by Pulse 98 98 Oximetry Medical Decision Making - Lab Data Result diagrams: 09/01/21 13:26 09/01/21 13:26 <Lorri Alvarado - Last Filed: 09/01/21 18:27> - Lab Data Result diagrams: 09/01/21 13:26 09/01/21 13:26 <Gretchen Spencer - Last Filed: 09/04/21 01:03 EDT> - Medical Decision Making Patient is a 66-year-old female here with history of COPD presenting with incr eased redness of breath over the past few days. She denies slightly tachycardia, 90% on her 3 L. Labs are all within normal limits, correlate is negative, no signs of infection. Patient was given IV steroids, breathing treatment and reports improvement in her symptoms. Her vital signs are stable, satting 98% on her 3 L which is typical for her at home. I discussed with patient that she is stable for discharge. She'll follow up with Dr. Goodman tomorrow as she already has an appointment. She is agreeable to this plan of care. Return parameters were discussed with parents verbalized understanding. Case discussed with Dr. Spencer. (Lorri Alvarado) I was available for consultation in the emergency department. The history and physical exam were done by the midlevel provider. I was consulted for this patients care. I reviewed the case with the midlevel provider and based on their presentation of the patient, I agree with the assessment, medical decision making and plan of care as documented. Chart was dictated using Zach[employer] Pre[employer] dictation software. Attempts were made to correct any dictation errors however some typographical errors may persist. (Gretchen Spencer) - Lab Data Lab Results 09/01/21 09/01/21 09/01/21 Range/Units 13:25 13:26 13:26 WBC 14.1 H (3.8-10.6) k/uL RBC 3.78 L (3.80-5.40) m/uL Hgb 9.7 L (11.4-16.0) gm/dL Hct 35.8 (34.0-46.0) % MCV 94.6 D (80.0-100.0) fL MCH 25.7 (25.0-35.0) pg MCHC 27.2 L (31.0-37.0) g/dL RDW 18.9 H (11.5-15.5) % Plt Count 383 (150-450) k/uL MPV 7.7 Neutrophils % 88 % Lymphocytes % 5 % Monocytes % 3 % Eosinophils % 2 % Basophils % 0 % Neutrophils # 12.4 H (1.3-7.7) k/uL Lymphocytes # 0.7 L (1.0-4.8) k/uL Monocytes # 0.5 (0-1.0) k/uL Eosinophils # 0.2 (0-0.7) k/uL Basophils # 0.0 (0-0.2) k/uL Hypochromasia Marked Poikilocytosis Slight Anisocytosis Slight PT 9.6 (9.0-12.0) sec INR 0.9 (<1.2) APTT 21.0 L (22.0-30.0) sec Sodium (137-145) mmol/L Potassium (3.5-5.1) mmol/L Chloride (98-107) mmol/L Carbon Dioxide (22-30) mmol/L Anion Gap mmol/L BUN (7-17) mg/dL Creatinine (0.52-1.04) mg/dL Est GFR (CKD-EPI)AfAm (>60 ml/min/1.73 sqM) Est GFR (CKD-EPI)NonAf (>60 ml/min/1.73 sqM) Glucose (74-99) mg/dL Calcium (8.4-10.2) mg/dL Magnesium (1.6-2.3) mg/dL Total Bilirubin (0.2-1.3) mg/dL AST (14-36) U/L ALT (4-34) U/L Alkaline Phosphatase (38-126) U/L Troponin I (0.000-0.034) ng/mL NT-Pro-B Natriuret Pep 250 pg/mL Total Protein (6.3-8.2) g/dL Albumin (3.5-5.0) g/dL Urine Color Urine Appearance (Clear) Urine pH (5.0-8.0) Ur Specific [place] (1.001-1.035) Urine Protein (Negative) Urine Glucose (UA) (Negative) Urine Ketones (Negative) Urine Blood (Negative) Urine Nitrite (Negative) Urine Bilirubin (Negative) Urine Urobilinogen (<2.0) mg/dL Ur Leukocyte Esterase (Negative) Urine RBC (0-5) /hpf Urine WBC (0-5) /hpf Ur Squamous Epith Cells (0-4) /hpf Hyaline Casts (0-2) /lpf Urine Mucus (None) /hpf Coronavirus (PCR) (Not Detectd) 09/01/21 09/01/21 09/01/21 Range/Units 13:26 13:26 13:26 WBC (3.8-10.6) k/uL RBC (3.80-5.40) m/uL Hgb (11.4-16.0) gm/dL Hct (34.0-46.0) % MCV (80.0-100.0) fL MCH (25.0-35.0) pg MCHC (31.0-37.0) g/dL RDW (11.5-15.5) % Plt Count (150-450) k/uL MPV Neutrophils % % Lymphocytes % % Monocytes % % Eosinophils % % Basophils % % Neutrophils # (1.3-7.7) k/uL Lymphocytes # (1.0-4.8) k/uL Monocytes # (0-1.0) k/uL Eosinophils # (0-0.7) k/uL Basophils # (0-0.2) k/uL Hypochromasia Poikilocytosis Anisocytosis PT (9.0-12.0) sec INR (<1.2) APTT (22.0-30.0) sec Sodium 141 (137-145) mmol/L Potassium 3.9 (3.5-5.1) mmol/L Chloride 95 L (98-107) mmol/L Carbon Dioxide 39 H (22-30) mmol/L Anion Gap 7 mmol/L BUN 15 (7-17) mg/dL Creatinine 0.65 (0.52-1.04) mg/dL Est GFR (CKD-EPI)AfAm >90 (>60 ml/min/1.73 sqM) Est GFR (CKD-EPI)NonAf >90 (>60 ml/min/1.73 sqM) Glucose 139 H (74-99) mg/dL Calcium 9.7 (8.4-10.2) mg/dL Magnesium 1.9 (1.6-2.3) mg/dL Total Bilirubin 0.3 (0.2-1.3) mg/dL AST 19 (14-36) U/L ALT 15 (4-34) U/L Alkaline Phosphatase 119 (38-126) U/L Troponin I <0.012 (0.000-0.034) ng/mL NT-Pro-B Natriuret Pep pg/mL Total Protein 6.7 (6.3-8.2) g/dL Albumin 3.8 (3.5-5.0) g/dL Urine Color Yellow Urine Appearance Clear (Clear) Urine pH 5.5 (5.0-8.0) Ur Specific [place] 1.015 (1.001-1.035) Urine Protein Negative (Negative) Urine Glucose (UA) Negative (Negative) Urine Ketones Negative (Negative) Urine Blood Negative (Negative) Urine Nitrite Negative (Negative) Urine Bilirubin Negative (Negative) Urine Urobilinogen <2.0 (<2.0) mg/dL Ur Leukocyte Esterase Moderate H (Negative) Urine RBC 1 (0-5) /hpf Urine WBC 7 H (0-5) /hpf Ur Squamous Epith Cells 1 (0-4) /hpf Hyaline Casts 16 H (0-2) /lpf Urine Mucus Rare H (None) /hpf Coronavirus (PCR) (Not Detectd) 09/01/21 Range/Units 13:54 WBC (3.8-10.6) k/uL RBC (3.80-5.40) m/uL Hgb (11.4-16.0) gm/dL Hct (34.0-46.0) % MCV (80.0-100.0) fL MCH (25.0-35.0) pg MCHC (31.0-37.0) g/dL RDW (11.5-15.5) % Plt Count (150-450) k/uL MPV Neutrophils % % Lymphocytes % % Monocytes % % Eosinophils % % Basophils % % Neutrophils # (1.3-7.7) k/uL Lymphocytes # (1.0-4.8) k/uL Monocytes # (0-1.0) k/uL Eosinophils # (0-0.7) k/uL Basophils # (0-0.2) k/uL Hypochromasia Poikilocytosis Anisocytosis PT (9.0-12.0) sec INR (<1.2) APTT (22.0-30.0) sec Sodium (137-145) mmol/L Potassium (3.5-5.1) mmol/L Chloride (98-107) mmol/L Carbon Dioxide (22-30) mmol/L Anion Gap mmol/L BUN (7-17) mg/dL Creatinine (0.52-1.04) mg/dL Est GFR (CKD-EPI)AfAm (>60 ml/min/1.73 sqM) Est GFR (CKD-EPI)NonAf (>60 ml/min/1.73 sqM) Glucose (74-99) mg/dL Calcium (8.4-10.2) mg/dL Magnesium (1.6-2.3) mg/dL Total Bilirubin (0.2-1.3) mg/dL AST (14-36) U/L ALT (4-34) U/L Alkaline Phosphatase (38-126) U/L Troponin I (0.000-0.034) ng/mL NT-Pro-B Natriuret Pep pg/mL Total Protein (6.3-8.2) g/dL Albumin (3.5-5.0) g/dL Urine Color Urine Appearance (Clear) Urine pH (5.0-8.0) Ur Specific [place] (1.001-1.035) Urine Protein (Negative) Urine Glucose (UA) (Negative) Urine Ketones (Negative) Urine Blood (Negative) Urine Nitrite (Negative) Urine Bilirubin (Negative) Urine Urobilinogen (<2.0) mg/dL Ur Leukocyte Esterase (Negative) Urine RBC (0-5) /hpf Urine WBC (0-5) /hpf Ur Squamous Epith Cells (0-4) /hpf Hyaline Casts (0-2) /lpf Urine Mucus (None) /hpf Coronavirus (PCR) Not Detected (Not Detectd) - EKG Data EKG Comments: Sinus rhythm with premature HO complexes, no signs of acute ST segment eleva tion. Ventricular rate 98, ND interval 118, QTC 362. (Lorri Alvarado) Disposition Is patient prescribed a controlled substance at d/c from ED?: No Time of Disposition: 15:48 <Lorri Alvarado - Last Filed: 09/01/21 18:27> <Gretchen Spencer - Last Filed: 09/04/21 01:03 EDT> Clinical Impression: COPD exacerbation Disposition: HOME SELF-CARE Condition: Stable Instructions (If sedation given, give patient instructions): COPD (Chronic Obstructive Pulmonary Disease) (ED) Additional Instructions: Please return to the Emergency Department if symptoms worsen or any other concerns. Continue with your breathing treatments and already prescribed medications. Follow up with her group underwriter tomorrow as discussed. Referrals: Gavin Riggs [Primary Care Provider] - 1-2 days Jose Elias Goodman MD [STAFF PHYSICIAN] - 1-2 days
[2021-09-01 16:34] VITALS: PULSE 94
[2021-09-01 16:35] VITALS: BP 148/74
== END 2021-09-01 16:20 | disposition home or self-care (01) ==
LOC: EC 12:00
DX: J44.1 Chronic obstructive pulmonary disease with (acute) exacerbation (principal); Z20.822 Contact with and (suspected) exposure to COVID-19; I10 Essential (primary) hypertension; M06.9 Rheumatoid arthritis, unspecified; F41.9 Anxiety disorder, unspecified; F32.9 Major depressive disorder, single episode, unspecified; Z79.1 Long term (current) use of non-steroidal anti-inflammatories (NSAID); Z79.51 Long term (current) use of inhaled steroids; Z79.52 Long term (current) use of systemic steroids; Z79.82 Long term (current) use of aspirin; Z85.038 Personal history of other malignant neoplasm of large intestine; Z86.718 Personal history of other venous thrombosis and embolism; Z87.891 Personal history of nicotine dependence; Z90.49 Acquired absence of other specified parts of digestive tract; Z99.81 Dependence on supplemental oxygen; Z79.899 Other long term (current) drug therapy
CPT/HCPCS: 36415; 94640; 93005; 83880; 80053; 83735; 84484; 85025; 85610; 85730; 81001; 87635; 71046; 99285; 96374; J2930

== ENCOUNTER → 2021-09-29 | Outpatient (CLI) | payer MEDICARE, OTHER ==
[2021-09-30 04:06] LABS: % Iron Saturation 3.75 (12.00-45.00); African American GFR (CKD) 98.9 (60.0-200.0); BUN/Creat Ratio 14.62 Ratio (12.00-20.00); Blood Urea Nitrogen 10.6 mg/dL (9.0-27.0); Carbon Dioxide 29.1 mmol/L (20.0-27.5); Chloride 100 mmol/L (96-109); Ferritin 40.1 ng/mL (10.0-291.0); Glucose 99 mg/dL (70-110); Iron 12 ug/dL (50-170); Non-African American GFR(CKD) 85.3 (60.0-200.0); Potassium 3.9 mmol/L (3.5-5.5); Sodium 141 mmol/L (135-145); Total Iron Binding Capacity 328 ug/dL (228-460)
[2021-09-30 16:36] LABS: Folate, Serum >20.00 ng/mL (4.40-31.00)
== END | disposition home or self-care (01) ==
LOC: LABWHC1 16:02
PROVIDERS: ATTEND Family Medicine
DX: D64.9 Anemia, unspecified (principal); R34 Anuria and oliguria
CPT/HCPCS: 36415; 80048; 82607; 82728; 82746; 83540; 83550

== ENCOUNTER → 2021-11-15 | Outpatient (CLI) | payer MEDICARE, OTHER ==
[2021-11-15 15:41] VITALS: BP 152/76; PULSE 67; RESP 20; TEMP 98.3
--- NOTE | 2021-11-15 16:32 | P.HPOB ---
History of Present Illness H&P Date: 11/15/21 Chief Complaint: The patient is here for her routine gynecologic exam and ma mmogram. This is a 66-year-old G0 with an LMP of 1983. She is status post [facility] with unilateral oophorectomy for benign reasons. She also has a history of vulvar cancer and is status post partial vulvectomy in 2000. She is without gynecologic complaints and has not been sexually active for many years. She denies vaginal discharge or vaginitis symptoms. She again is on the list for a possible lung transplant through the [facility] transplant [place]. Review of Systems The patient has lost 6 pounds over the last year. She denies cardiac, or G.I. problems. Respiratory: She continues to have problems with COPD and this is why she is on the lung transplant list. Past Medical History Past Medical History: Cancer, COPD, Deep Vein Thrombosis (DVT), Hearing Disorder / Deafness, Hypertension, Pneumonia, Rheumatoid Arthritis (RA) Additional Past Medical History / Comment(s): Bilateral hearing aid use. Colitis, Osteopenia, hx cancer of appendix, uses oxygen 3L continuous, chronic back pain, restless leg. 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 Hx Covid 01/16. History of Any Multi-Drug Resistant Organisms: MRSA Date of last positivie culture/infection: february 2021 MDRO Source:: urine Past Surgical History: Appendectomy, Bowel Resection, Hysterectomy, Joint Replacement, Orthopedic Surgery Additional Past Surgical History / Comment(s): Right knee replacement, EGD/ colonoscopy, lasik eye surgery, right colectomy, colonoscopy 2016, pain procedure at [facility] with Dr Ty [facility] with unilateral oophorectomy 1983, partial vulvectomy 2000, Kyphoplasty. Past Anesthesia/Blood Transfusion Reactions: No Reported Reaction Additional Past Anesthesia/Blood Transfusion Reaction / Comment(s): States is not supposed to have general anesthesia. "Cannot have tube in throat." Past Psychological History: ADD/ADHD, Anxiety, Depression Additional Psychological History / Comment(s): . Smoking Status: Former smoker Past Alcohol Use History: None Reported Additional Past Alcohol Use History / Comment(s): Started smoking at age 11 and quit 22 years ago, 1-2ppd. Past Drug Use History: Marijuana (Quit in 2015.) Additional Drug Use History / Comment(s): Quit using Marijuana 04/2016. Additional History: She is a and has not been been sexually active for many years. She is retired. - Past Family History Father Family Medical History: Cancer, COPD Additional Family Medical History / Comment(s): COLON cancer. Mother Family Medical History: Cancer Additional Family Medical History / Comment(s): ESOPHAGUS cancer. Sister(s) Family Medical History: Cancer Additional Family Medical History / Comment(s): CERVICAL cancer, basal cell cancer. Medications and Allergies Home Medications Medication Instructions Recorded Confirmed Type Multivitamins, Thera [Multivitamin 1 tab PO DAILY 12/30/20 11/15/21 History (formulary)] Pantoprazole Sodium [Protonix] 40 mg PO DAILY 12/30/20 11/15/21 History DULoxetine HCL [Cymbalta] 30 mg PO DAILY 01/15/21 11/15/21 History Montelukast [Singulair] 10 mg PO HS 02/19/21 11/15/21 History Loratadine [Claritin] 10 mg PO HS 04/24/21 11/15/21 History Ipratropium-Albuterol Nebulize 3 ml INHALATION RT-QID PRN 05/22/21 11/15/21 History [Duoneb 0.5 mg-3 mg/3 ml Soln] Furosemide [Lasix] 40 mg PO DAILY #30 tablet 06/10/21 11/15/21 Rx Ferrous Sulfate [Iron (65 MG 325 mg PO DAILY 07/04/21 11/15/21 History Elemental)] Formoterol Fumarate [Perforomist] 20 mcg INHALATION RT-BID #30 ml 07/06/21 11/15/21 Rx Magnesium Oxide [Mag-Ox] 200 mg PO DAILY 07/14/21 11/15/21 History Potassium Chloride [Klor-Con 20] 20 meq PO DAILY 07/14/21 11/15/21 History Budesonide [Pulmicort] 1 mg INHALATION RT-BID 08/05/21 11/15/21 History Meloxicam 15 mg PO DAILY 08/05/21 11/15/21 History Verapamil HCl [Verapamil ER] 120 mg PO DAILY 08/05/21 11/15/21 History predniSONE 5 mg PO DAILY 08/05/21 11/15/21 History rOPINIRole HCL [Requip] 1 mg PO HS 08/05/21 11/15/21 History Theophylline Anhydrous 200 mg PO BID 09/01/21 11/15/21 History [Theophylline] Allergies Allergy/AdvReac Type Severity Reaction Status Date / Time infliximab [From Remicade] Allergy Dyspnea/HIV Verified 11/15/21 15:32 ES propoxyphene [From Darvon] Allergy Rash/Hives Verified 11/15/21 15:32 adhesive tape AdvReac "is hard Verified 11/15/21 15:32 on skin" Exam Vital Signs Temp Pulse Resp BP Pulse Ox 11/15/21 15:32 98.3 F 67 20 152/76 98 Intake and Output 11/15/21 11/15/21 11/15/21 06:59 14:59 22:59 Other: Weight 73.028 kg Height 5 feet 0 inches, weight 161 pounds, BMI 31.4. This is a well-developed well-nourished white female who is alert and oriented times 3 in no acute distress. She is using nasal cannula oxygen. HEENT: Within normal limits. NECK: Supple without mass or thyromegaly. CHEST AND LUNGS: Her expiration is moderately prolonged consistent with her severe COPD. There is no significant wheezing at this time. There are no rales or rhonchi. HEART: Regular rate and rhythm. BREASTS: Are without mass or discharge. AXILLARY EXAM: Negative for adenopathy. BACK: Negative for CVA tenderness. ABDOMEN: Soft, obese, nontender, without palpable masses. PELVIC EXAM: External genitalia is consistent with previous partial vulvectomy. The posterior vulva has been removed as well as perineal body. The anus is continuous with the vaginal mucosa. This is consistent with her previous examination. There are no suspicious lesions. The vagina reveals mild atrophy and there is a small amount of thick brownish discharge in the back of the vagina. There is no significant odor. There is no evidence of prolapse. The bimanual examination is negative for mass or tenderness. There is no evidence of prolapse. RECTAL EXAM: Rectovaginal exam is negative for mass or tenderness and is negative for occult blood. There is no evidence of a fistula, however, the anus is continuous with the vaginal mucosal as above. EXTREMITIES: Nontender. IMPRESSION: 1. 66-year-old menopausal female status post TAD with unilateral oophorectomy for benign reasons, with small amount of slightly brownish discharge. Differential diagnosis will include bacterial vaginosis, brandt vaginitis, small amount of fecal material within the vagina secondary to the proximity of the anus and vagina. 2. History of vulvar cancer and is status post partial vulvectomy in 2000 with no evidence of recurrence. 3. History of osteoporosis based on the bone density testing of the wrist. 4. Multiple medical problems. The patient is on the lung transplant list for severe COPD. PLAN: 1. Pap smears have been discontinued. 2. Self breast awareness was discussed with the patient. We have also discussed symptoms associated with inflammatory breast cancer. 3. Screening mammogram was done today. 4. Osteoporosis management was discussed. I have stressed the importance of adequate calcium, vitamin D and regular exercise. Recommended amounts of calcium and vitamin D were also discussed. We have discussed possible prescription treatment for osteoporosis and she has used Reclast in the past. Since she is on the transplant list for a lung transplant, I want to be sure that medications such as Reclast is okay to use in the situation. She will discuss this with her transplant team since she will be in contact with them in the near future. 5. Affirm vaginitis panel has been obtained from the vagina. We have discussed the importance of wiping at the anus away from the vagina. 6. She has completed her Covid vaccination series and did receive a booster. She has received a flu shot this past fall. 7. She was advised to return in one year for her annual well woman exam and as needed.
[2021-11-16 14:41] LABS: Gardnerella Negative (Negative); Source Vagina; Trichomonas Negative (Negative)
--- NOTE | 2021-11-17 10:16 | MM ---
Reason for exam: screening (asymptomatic). Last mammogram was performed 1 year and 6 months ago. History: Patient is postmenopausal, has history of endometrial cancer at age 66, and is nulliparous. Family history of breast cancer. Benign MG stereo VAD BX addl LT of the left breast, June 05, 2017. Benign MG stereo VAD BX RT of the right breast, June 05, 2017. Physical Findings: A clinical breast exam by your physician is recommended on an annual basis and results should be correlated with mammographic findings. MG 3D Screening Mammo W/Cad Bilateral CC and MLO view(s) were taken. Prior study comparison: May 13, 2020, bilateral MG 3d screening mammo w/cad. March 18, 2019, bilateral MG 3d screening mammo w/cad. There are scattered fibroglandular densities. Finding: There are stable typically benign round, grouped/clustered calcifications in the left breast near clip. Previous mammotome biopsy in the right and left breast. Asymmetric breast tissue at right previous mammotome biopsy, stable. There is no discrete abnormality. ASSESSMENT: Benign, BI-RAD 2 RECOMMENDATION: Routine screening mammogram of both breasts in 1 year.
--- NOTE | 2021-11-17 14:15 | P.PN ---
Progress Note - Text Progress Note Date: 11/17/21 Affirm vaginitis panel done on 11/15/21 was negative for Erica, Gardnerella, and Trichomonas. The patient was notified by phone. She is not having symptoms. She is to call if problems.
== END | disposition home or self-care (01) ==
LOC: RADMAMWWP 14:56
PROVIDERS: ATTEND Obstetrics & Gynecology
DX: Z12.31 Encounter for screening mammogram for malignant neoplasm of breast (principal); D50.9 Iron deficiency anemia, unspecified
CPT/HCPCS: 77063; 77067; 87480; 87510; 87660

== ENCOUNTER 2022-04-20 12:26 | Observation (INO) | payer MEDICARE, OTHER ==
--- NOTE | 2022-04-20 13:24 | ED ---
Fall HPI - General Chief Complaint: Fall Stated Complaint: Fall Time Seen by Provider: 04/20/22 12:48 Source: patient Mode of arrival: EMS - History of Present Illness Initial Comments: Patient is a 67-year-old female presenting with chief complaint of abrasion to the right knee. Patient states that at home she tripped over her O2 tubing and fell forward. She is complaining of right knee pain and left elbow and wrist pain. Patient had right knee arthroplasty performed in 2000. She denies hitting her head, denies use of blood thinners, no loss of consciousness. Denies [place] sea, vomiting, chest pain, shortness of breath, vision or hearing changes, dizziness, numbness, tingling, weakness, fever, chills, abdominal pain. - Related Data Home Medications Medication Instructions Recorded Confirmed Multivitamins, Thera [Multivitamin 1 tab PO DAILY 12/30/20 11/15/21 (formulary)] Pantoprazole Sodium [Protonix] 40 mg PO DAILY 12/30/20 11/15/21 DULoxetine HCL [Cymbalta] 30 mg PO DAILY 01/15/21 11/15/21 Montelukast [Singulair] 10 mg PO HS 02/19/21 11/15/21 Loratadine [Claritin] 10 mg PO HS 04/24/21 11/15/21 Ipratropium-Albuterol Nebulize 3 ml INHALATION RT-QID PRN 05/22/21 11/15/21 [Duoneb 0.5 mg-3 mg/3 ml Soln] Ferrous Sulfate [Iron (65 MG 325 mg PO DAILY 07/04/21 11/15/21 Elemental)] Magnesium Oxide [Mag-Ox] 200 mg PO DAILY 07/14/21 11/15/21 Potassium Chloride [Klor-Con 20] 20 meq PO DAILY 07/14/21 11/15/21 Budesonide [Pulmicort] 1 mg INHALATION RT-BID 08/05/21 11/15/21 Meloxicam 15 mg PO DAILY 08/05/21 11/15/21 Verapamil HCl [Verapamil ER] 120 mg PO DAILY 08/05/21 11/15/21 predniSONE 5 mg PO DAILY 08/05/21 11/15/21 rOPINIRole HCL [Requip] 1 mg PO HS 08/05/21 11/15/21 Theophylline Anhydrous 200 mg PO BID 09/01/21 11/15/21 [Theophylline] Previous Rx's Medication Instructions Recorded Furosemide [Lasix] 40 mg PO DAILY #30 tablet 06/10/21 Formoterol Fumarate [Perforomist] 20 mcg INHALATION RT-BID #30 ml 07/06/21 Allergies Allergy/AdvReac Type Severity Reaction Status Date / Time infliximab [From Remicade] Allergy Dyspnea/HIV Verified 04/20/22 12:38 ES propoxyphene [From Darvon] Allergy Rash/Hives Verified 04/20/22 12:38 adhesive tape AdvReac "is hard Verified 04/20/22 12:38 on skin" Review of Systems ROS Statement: Those systems with pertinent positive or pertinent negative responses have been documented in the HPI. ROS Other: All systems not noted in ROS Statement are negative. Past Medical History Past Medical History: Cancer, COPD, Deep Vein Thrombosis (DVT), Hearing Disorder / Deafness, Hypertension, Pneumonia, Rheumatoid Arthritis (RA) Additional Past Medical History / Comment(s): Bilateral hearing aid use. Colitis, Osteopenia, hx cancer of appendix, uses oxygen 3L continuous, chronic back pain, restless leg. 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 Hx Covid 01/16. History of Any Multi-Drug Resistant Organisms: MRSA Date of last positivie culture/infection: february 2021 MDRO Source:: urine Past Surgical History: Appendectomy, Bowel Resection, Hysterectomy, Joint Replacement, Orthopedic Surgery Additional Past Surgical History / Comment(s): Right knee replacement, EGD/colonoscopy, lasik eye surgery, right colectomy, colonoscopy 2016, pain procedure at [facility] with Dr Ty [facility] with unilateral oophorectomy 1983, partial vulvectomy 2000, Kyphoplasty. Past Anesthesia/Blood Transfusion Reactions: No Reported Reaction Additional Past Anesthesia/Blood Transfusion Reaction / Comment(s): States is not supposed to have general anesthesia. "Cannot have tube in throat." Past Psychological History: ADD/ADHD, Anxiety, Depression Smoking Status: Former smoker Past Alcohol Use History: None Reported Past Drug Use History: Marijuana - Past Family History Father Family Medical History: Cancer, COPD Additional Family Medical History / Comment(s): COLON cancer. Mother Family Medical History: Cancer Additional Family Medical History / Comment(s): ESOPHAGUS cancer. Sister(s) Family Medical History: Cancer Additional Family Medical History / Comment(s): CERVICAL cancer, basal cell cancer. General Exam Limitations: no limitations General appearance: alert, in no apparent distress Head exam: Present: atraumatic, normocephalic, normal inspection Eye exam: Present: normal appearance, EOMI. Absent: scleral icterus Neck exam: Present: normal inspection Respiratory exam: Present: normal lung sounds bilaterally. Absent: respiratory distress, wheezes, rales, rhonchi, stridor Cardiovascular Exam: Present: regular rate, normal rhythm, normal heart sounds. Absent: systolic murmur, diastolic murmur, rubs, gallop, clicks Left Elbow exam: Present: full ROM, tenderness, swelling Neuro motor exam: Present: wrist extension intact, fingers 2-5 abduction intact Vascular: Absent: vascular compromise Right Knee exam: Present: tenderness, abrasion. Absent: normal inspection, full ROM Neurovascular tendon exam: Present: no vascular compromise. Absent: sensory deficit Gait: not tested/not observed Neurological exam: Present: alert, oriented X3, CN II-XII intact Psychiatric exam: Present: normal affect, normal mood Skin exam: Present: warm, dry, normal color. Absent: rash Expanded Type of lesion: Present: abrasion (Right knee) Course Vital Signs 04/20/22 04/20/22 12:35 16:12 Temperature 98.2 F 97.8 F Pulse Rate 92 89 Respiratory 22 16 Rate Blood Pressure 133/61 127/70 O2 Sat by Pulse 98 99 Oximetry Medical Decision Making - Medical Decision Making Patient is a 67-year-old female presenting with chief complaint of right knee and left elbow pain. Patient fell at home after tripping over her O2 tubing. She denies any head injury, loss of consciousness, use of blood thinners. She is unable to move the right knee, able to move the left elbow but experiences pain with range of motion. No numbness, tingling, weakness. There is an abrasion to the right knee, this is not repairable via sutures due to the superficial nature. X-rays show nondisplaced transverse fracture of the midportion of the patella without significant displacement or angulation. Patient had a right knee arthroplasty in 2000, there is no evidence of prosthesis break or displacement. Small knee joint effusion. Prepatellar soft tissue swelling and hematoma. There is a questionable subtle nondisplaced fracture at the distal aspect of the radial head. No solomon extension into the radial head articular surface. Patient lives alone and does not have any family to come stay with her while she is unable to use the right leg. I spoke with Dr. Camara, who advised a knee immobilizer and approved admission for detention placement. I spoke with Dr. Nath who agreed to admit the patient. Patient is agreeable to this plan. My attending is Dr. Jaramillo. Disposition Clinical Impression: Patellar fracture, Radial head fracture Disposition: ADMITTED IP TO [facility] Condition: Good Time of Disposition: 17:26 Decision to Admit Reason: Admit from EC Decision Date: 04/20/22 Decision Time: 17:26
--- NOTE | 2022-04-20 14:05 | XR ---
EXAMINATION TYPE: XR elbow complete LT DATE OF EXAM: 04/20/2022 COMPARISON: NONE INDICATION: Fall and pain TECHNIQUE: 3 views of the left elbow FINDINGS: Osteopenia. Questionable subtle nondisplaced fracture at the distal aspect of the radial head. No fra nk extension into the radial head articular surface. No other definite acute fracture line identified. Enthesophytes at the medial humeral epicondyles. Os teophytosis of the coronoid process. Suspected small elbow joint effusion. IMPRESSION: Questionable subtle nondisplaced fracture of the radial head as described above. Elbow joint effusion .
--- NOTE | 2022-04-20 14:07 | XR ---
EXAMINATION TYPE: XR wrist complete LT DATE OF EXAM: 04/20/2022 COMPARISON: NONE INDICATION: Fall TECHNIQUE: 4 views of the left wrist FINDINGS: Diffuse osteopenia. No definite acute fracture line identified. Degenerative changes of the first car pometacarpal articulation. IMPRESSION: No definite acute fracture or dislocation identified.
[2022-04-20] MEDS ORDERED: KETOROLAC 15 MG/ML 1 ML VIAL IM STA (14:33)
--- NOTE | 2022-04-20 15:04 | XR ---
EXAMINATION TYPE: XR knee complete RT DATE OF EXAM: 04/20/2022 COMPARISON: NONE INDICATION: Fall and pain TECHNIQUE: 3 views of the right knee FINDINGS: Nondisplaced transverse fracture of the midportion of the patella without significant displacement or angulation. Prepatellar soft tissue swelling/hematoma. Osteopenia. Previous knee arthroplasty. No evidence of prosthesis break or displacement. No other def inite acute fracture line identified. Arterial atherosclerotic calcifications. Small knee joint effus ion. IMPRESSION: Patellar fracture as described above, for clinical correlation and orthopedic consultation. Other fin dings as described above.
[2022-04-20] MEDS ORDERED: IBUPROFEN 400 MG TAB PO PRN (17:13)
[2022-04-20] MEDS ORDERED: NALOXONE 0.4 MG/ML 1 ML VIAL IV PRN ×2 (17:13→17:25)
--- NOTE | 2022-04-20 17:31 | P.HPIM ---
History of Present Illness H&P Date: 04/20/22 Chief Complaint: fall 67-year-old female presenting with chief complaint of tripping on the oxygen cord resulting in laceration to the right knee. She fell forward. Afterwards she started having right knee pain and left wrist pain. She denies hitting her head, denies use of blood thinners, no loss of consciousness. Denies nausea, vomiting, chest pain, shortness of breath, vision or hearing changes, dizziness, numbness, tingling, weakness, fever, chills, abdominal pain. X-rays in the emergency department revealed radial head fracture on the left and right knee patellar fracture. Case was discussed with orthopedics who advised admission to medicine. Review of Systems Complete review of system performed pertinent positives per HPI, otherwise negative Past Medical History Past Medical History: Cancer, COPD, Deep Vein Thrombosis (DVT), Hearing Disorder / Deafness, Hypertension, Pneumonia, Rheumatoid Arthritis (RA) Additional Past Medical History / Comment(s): Bilateral hearing aid use. Colitis, Osteopenia, hx cancer of appendix, uses oxygen 3L continuous, chronic back pain, restless leg. 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 Hx Covid 01/16. History of Any Multi-Drug Resistant Organisms: MRSA Date of last positivie culture/infection: february 2021 MDRO Source:: urine Past Surgical History: Appendectomy, Bowel Resection, Hysterectomy, Joint Replacement, Orthopedic Surgery Additional Past Surgical History / Comment(s): Right knee replacement, EGD/colonoscopy, lasik eye surgery, right colectomy, colonoscopy 2016, pain procedure at [facility] with Dr Ty [facility] with unilateral oophorectomy 1983, partial vulvectomy 2000, Kyphoplasty. Past Anesthesia/Blood Transfusion Reactions: No Reported Reaction Additional Past Anesthesia/Blood Transfusion Reaction / Comment(s): States is not supposed to have general anesthesia. "Cannot have tube in throat." Past Psychological History: ADD/ADHD, Anxiety, Depression Smoking Status: Former smoker Past Alcohol Use History: None Reported Past Drug Use History: Marijuana - Past Family History Father Family Medical History: Cancer, COPD Additional Family Medical History / Comment(s): COLON cancer. Mother Family Medical History: Cancer Additional Family Medical History / Comment(s): ESOPHAGUS cancer. Sister(s) Family Medical History: Cancer Additional Family Medical History / Comment(s): CERVICAL cancer, basal cell cancer. Medications and Allergies Home Medications Medication Instructions Recorded Confirmed Type Multivitamins, Thera [Multivitamin 1 tab PO DAILY 12/30/20 11/15/21 History (formulary)] Pantoprazole Sodium [Protonix] 40 mg PO DAILY 12/30/20 11/15/21 History DULoxetine HCL [Cymbalta] 30 mg PO DAILY 01/15/21 11/15/21 History Montelukast [Singulair] 10 mg PO HS 02/19/21 11/15/21 History Loratadine [Claritin] 10 mg PO HS 04/24/21 11/15/21 History Ipratropium-Albuterol Nebulize 3 ml INHALATION RT-QID PRN 05/22/21 11/15/21 History [Duoneb 0.5 mg-3 mg/3 ml Soln] Furosemide [Lasix] 40 mg PO DAILY #30 tablet 06/10/21 11/15/21 Rx Ferrous Sulfate [Iron (65 MG 325 mg PO DAILY 07/04/21 11/15/21 History Elemental)] Formoterol Fumarate [Perforomist] 20 mcg INHALATION RT-BID #30 ml 07/06/21 11/15/21 Rx Magnesium Oxide [Mag-Ox] 200 mg PO DAILY 07/14/21 11/15/21 History Potassium Chloride [Klor-Con 20] 20 meq PO DAILY 07/14/21 11/15/21 History Budesonide [Pulmicort] 1 mg INHALATION RT-BID 08/05/21 11/15/21 History Meloxicam 15 mg PO DAILY 08/05/21 11/15/21 History Verapamil HCl [Verapamil ER] 120 mg PO DAILY 08/05/21 11/15/21 History predniSONE 5 mg PO DAILY 08/05/21 11/15/21 History rOPINIRole HCL [Requip] 1 mg PO HS 08/05/21 11/15/21 History Theophylline Anhydrous 200 mg PO BID 09/01/21 11/15/21 History [Theophylline] Allergies Allergy/AdvReac Type Severity Reaction Status Date / Time infliximab [From Remicade] Allergy Dyspnea/HIV Verified 04/20/22 12:38 ES propoxyphene [From Darvon] Allergy Rash/Hives Verified 04/20/22 12:38 adhesive tape AdvReac "is hard Verified 04/20/22 12:38 on skin" Physical Exam Vitals: Vital Signs Temp Pulse Resp BP Pulse Ox 04/20/22 16:12 97.8 F 89 16 127/70 99 04/20/22 12:35 98.2 F 92 22 133/61 98 Intake and Output 04/20/22 04/20/22 04/20/22 06:59 14:59 22:59 Other: Weight 68.039 kg Constitutional: No acute distress, conversant, pleasant Eyes:Anicteric sclerae, moist conjunctiva, no lid-lag, PERRLA, ENMT: Oropharynx clear, no erythema, exudates Neck: Supple, FROM, no masses, or JVD, No carotid bruits, No thyromegaly Lungs: Clear to auscultation, Clear to percussion, Normal respiratory effort, no accessory muscle use Cardiovascular: Heart regular in rate and rhythm, No murmurs, gallops, or rubs, No peripheral edema Abdominal: Soft, Nontender, no guarding, rebound or rigidity, Normoactive bowel sounds, No hepatomegaly, No splenomegaly, No palpable mass Skin: Normal temperature, tone, texture, turgor, no induration, No subcutaneous nodules, No rash, lesions, No ulcers Extremities: Pain in the range of motion of the right knee and left elbow. No digital cyanosis, No clubbing, Pedal pulses intact and symmetrical, Radial pulses intact and symmetrical, No calf tenderness Psychiatric: Alert and oriented to person, place and time, appropriate affect, intact judgement Neuro: Muscles Strength 5/5 in all 4 extremities, Sensation to light touch grossly present throughout, Cranial nerves II-XII grossly intact, no focal sensory deficits Assessment and Plan Plan: Patellar fracture of the right knee, left elbow radial head fracture This was communicated with orthopedic surgery who stated that these fractures are not operative Admit for physical therapy and placement Pain control with morphine Chronic COPD Hypertension, Rheumatoid Arthritis (RA) All stable Resume meds Admit to inpatient, expected length of stay more than 2 midnights.
[2022-04-20] MEDS: LORATADINE 10 MG TAB PO SCH (20:17)
[2022-04-20] MEDS: MONTELUKAST 10 MG TAB PO SCH (20:17)
[2022-04-20] MEDS: MORPHINE SULFATE 2 MG/ML SYRINGE IVP PRN (20:26)
[2022-04-20] MEDS: BUDESONIDE 1 MG/2 ML NEBU INHALATION SCH (20:53)
[2022-04-20] MEDS: FORMOTEROL FUMARATE 20 MCG/2 ML NEBU INHALATION SCH (20:53)
[2022-04-20] MEDS: IPRATROPIUM-ALBUTEROL 3 ML NEB INHALATION PRN (20:53)
[2022-04-20] MEDS: MELATONIN 5 MG TABLET PO SCH (23:10)
[2022-04-20] MEDS: ACETAMINOPHEN TAB 325 MG TAB PO PRN (23:25)
[2022-04-21] MEDS: MORPHINE SULFATE 2 MG/ML SYRINGE IVP PRN ×3 (04:15→13:05)
[2022-04-21] MEDS: ACETAMINOPHEN TAB 325 MG TAB PO PRN ×2 (06:17→12:45)
[2022-04-21 09:03] LABS: Basophils # (A) 0.03 X 10*3/uL (0.00-0.10); Basophils % (A) 0.2 %; Eosinophils # (A) 0.55 X 10*3/uL (0.04-0.35); Eosinophils % (A) 4.2 %; HCT 37.2 % (37.2-46.3); HGB 11.5 g/dL (12.0-15.0); Immature Grans, Automated 0.5 %; Lymphocytes # (A) 2.52 X 10*3/uL (0.90-5.00); Lymphocytes % (A) 19.1 %; MCH 29.4 pg (27.0-32.0); MCHC 30.9 g/dL (32.0-37.0); MCV 95.1 fL (80.0-97.0); Mean Platelet Volume 11.2 fL (9.5-12.2); Monocytes % (A) 9.1 %; NRBC Per 100 WBC 0 /100 WBCS (0.0-0.0); Neutrophils # (A) 8.85 X 10*3/uL (1.80-7.70); Neutrophils % (A) 66.9 %; Platelet Count 254 X 10*3/uL (140-440); RBC 3.91 X 10*6/uL (4.10-5.20); RDW 14.6 % (11.5-14.5); WBC 13.22 X 10*3/uL (4.50-10.00)
[2022-04-21 09:24] LABS: African American GFR (CKD) 75.6 (60.0-200.0); Albumin 3.7 g/dL (3.8-4.9); Albumin/Globulin Ratio 1.48 (1.60-3.17); Anion Gap 8.4 mmol/L (10.00-18.00); BUN/Creat Ratio 32.22 Ratio (12.00-20.00); Calcium 8.8 mg/dL (8.7-10.3); Carbon Dioxide 34.6 mmol/L (20.0-27.5); Globulin 2.5 g/dL (1.6-3.3); Non-African American GFR(CKD) 65.2 (60.0-200.0); Potassium 4.4 mmol/L (3.5-5.5); Total Bilirubin 0.3 mg/dL (0.30-1.20); Total Protein 6.2 g/dL (6.2-8.2)
[2022-04-21] MEDS: FORMOTEROL FUMARATE 20 MCG/2 ML NEBU INHALATION SCH ×2 (09:30→19:25)
[2022-04-21] MEDS: IPRATROPIUM-ALBUTEROL 3 ML NEB INHALATION PRN ×2 (09:30→19:25)
[2022-04-21] MEDS: BUDESONIDE 1 MG/2 ML NEBU INHALATION SCH ×2 (09:30→19:25)
[2022-04-21] MEDS: FERROUS SULFATE 325 MG TAB PO SCH (09:51)
[2022-04-21] MEDS: POTASSIUM CHLORIDE ER 20 MEQ TAB.ER PO SCH (09:51)
[2022-04-21] MEDS: PANTOPRAZOLE 40 MG TABLET PO SCH (09:51)
[2022-04-21] MEDS: MAGNESIUM OXIDE 400 MG TAB PO SCH (09:51)
[2022-04-21] MEDS: FUROSEMIDE 40 MG TAB PO SCH (09:51)
[2022-04-21] MEDS: MELOXICAM 7.5 MG TAB PO SCH (09:51)
[2022-04-21] MEDS: THEOPHYLLINE 24 HOUR 400 MG CAP.ER.24H PO SCH (09:52)
--- NOTE | 2022-04-21 10:13 | P.CNOR ---
History of Present Illness - [facility] Consult date: 04/21/22 Consult reason: other (Right patella fracture and left radial neck fracture) History of present illness: The patient is a 67 y/o female who presented to the ER at [facility] yesterday after sustaining a fall at home. She was found to have a right minimally displaced patella fracture and a left nondisplaced radial neck fracture. The patient does live alone and is unable to return to home with a knee immobilizer and non-weightbearing to the left upper extremity. She was admitted for rehab placement and pain management. Review of Systems Constitutional: Denies chills, Denies fatigue, Denies fever Cardiovascular: Denies chest pain, Denies shortness of breath Respiratory: Denies cough Gastrointestinal: Denies diarrhea, Denies nausea, Denies vomiting Musculoskeletal: right: knee pain, knee stiffness, knee swelling, left: elbow pain, elbow stiffness, elbow swelling Past Medical History Past Medical History: Cancer, COPD, Deep Vein Thrombosis (DVT), Hearing Disorder / Deafness, Hypertension, Pneumonia, Rheumatoid Arthritis (RA) Additional Past Medical History / Comment(s): Bilateral hearing aid use. Colitis, Osteopenia, hx cancer of appendix, uses oxygen 3L continuous, chronic back pain, restless leg. 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 Hx Covid 01/16. History of Any Multi-Drug Resistant Organisms: MRSA Year Discovered:: february 2021 MDRO Source:: urine Past Surgical History: Appendectomy, Bowel Resection, Hysterectomy, Joint Replacement, Orthopedic Surgery Additional Past Surgical History / Comment(s): Right knee replacement, EGD/colonoscopy, lasik eye surgery, right colectomy, colonoscopy 2016, pain procedure at [facility] with Dr Ty, [facility] with unilateral oophorectomy 1983, partial vulvectomy 2000, Kyphoplasty. Past Anesthesia/Blood Transfusion Reactions: No Reported Reaction Additional Past Anesthesia/Blood Transfusion Reaction / Comm: States is not supposed to have general anesthesia. "Cannot have tube in throat." Past Psychological History: ADD/ADHD, Anxiety, Depression Additional Psychological History / Comment(s): . Smoking Status: Former smoker Past Alcohol Use History: None Reported Additional Past Alcohol Use History / Comment(s): Started smoking at age 11 and quit 22 years ago, 1-2ppd. Additional Drug Use History / Comment(s): Quit using Marijuana 04/2016. - Past Family History Father Family Medical History: Cancer, COPD Additional Family Medical History / Comment(s): COLON cancer. Mother Family Medical History: Cancer Additional Family Medical History / Comment(s): ESOPHAGUS cancer. Sister(s) Family Medical History: Cancer Additional Family Medical History / Comment(s): CERVICAL cancer, basal cell cancer. Medications and Allergies Home Medications Medication Instructions Recorded Confirmed Type Pantoprazole Sodium [Protonix] 40 mg PO DAILY 12/30/20 04/20/22 History DULoxetine HCL [Cymbalta] 30 mg PO DAILY 01/15/21 04/20/22 History Montelukast [Singulair] 10 mg PO HS 02/19/21 04/20/22 History Ipratropium-Albuterol Nebulize 3 ml INHALATION RT-QID PRN 05/22/21 04/20/22 History [Duoneb 0.5 mg-3 mg/3 ml Soln] Furosemide [Lasix] 40 mg PO DAILY #30 tablet 06/10/21 04/20/22 Rx Ferrous Sulfate [Iron (65 MG 325 mg PO DAILY 07/04/21 04/20/22 History Elemental)] Formoterol Fumarate [Perforomist] 20 mcg INHALATION RT-BID #30 ml 07/06/21 04/20/22 Rx Magnesium Oxide [Mag-Ox] 200 mg PO DAILY 07/14/21 04/20/22 History Potassium Chloride [Klor-Con 20] 20 meq PO DAILY 07/14/21 04/20/22 History Budesonide [Pulmicort] 1 mg INHALATION RT-BID 08/05/21 04/20/22 History Meloxicam 15 mg PO DAILY 08/05/21 04/20/22 History Verapamil HCl [Verapamil ER] 120 mg PO DAILY 08/05/21 04/20/22 History predniSONE 5 mg PO DAILY 08/05/21 04/20/22 History Theophylline Anhydrous 200 mg PO BID 09/01/21 04/20/22 History [Theophylline] Albuterol Sulfate [Ventolin HFA] 2 puff INHALATION RT-Q6H PRN 04/20/22 04/20/22 History Cetirizine HCl 10 mg PO DAILY 04/20/22 04/20/22 History Cholecalciferol [Vitamin D3 (25 50 mcg PO DAILY 04/20/22 04/20/22 History Mcg = 1000 Iu)] Melatonin 5 mg PO HS PRN 04/20/22 04/20/22 History Multivit-Min/Iron/Folic/Lutein 1 tab PO DAILY 04/20/22 04/20/22 History [Centrum Silver Women Tablet] rOPINIRole HCL [Requip] 4 mg PO HS 04/20/22 04/20/22 History Allergies Allergy/AdvReac Type Severity Reaction Status Date / Time infliximab [From Remicade] Allergy Dyspnea/HIV Verified 04/20/22 18:05 ES propoxyphene [From Darvon] Allergy Rash/Hives Verified 04/20/22 18:05 adhesive tape AdvReac "is hard Verified 04/20/22 18:05 on skin" Physical Examination The patient is a 67 y/o female who is in no acute distress. She is alert and oriented x3. Exam of the left upper extremity reveals a long arm splint in place. No swelling present to the hand. Normal sensation and motion to the hand. Circulatory status is intact. Exam of the right lower extremity reveals a small abrasion to the anterior knee. Moderate swelling present. There is a healed incision to the anterior knee. Point tenderness to the patella. Calf is soft and nontender. Good foot and ankle motion. Neurological and circulatory status is intact. Results Minimally right displaced transverse patella fracture and a left nondisplaced radial neck fracture - Labs Labs: Abnormal Lab Results - Last 24 Hours (Table) 04/21/22 04/21/22 Range/Units 06:19 06:19 WBC 13.22 H (4.50-10.00) X 10*3/uL RBC 3.91 L (4.10-5.20) X 10*6/uL Hgb 11.5 L (12.0-15.0) g/dL MCHC 30.9 L (32.0-37.0) g/dL RDW 14.6 H (11.5-14.5) % Immature Gran # 0.07 H (0.00-0.04) X 10*3/uL Neutrophils # 8.85 H (1.80-7.70) X 10*3/uL Monocytes # 1.20 H (0.20-1.00) X 10*3/uL Eosinophils # 0.55 H (0.04-0.35) X 10*3/uL Carbon Dioxide 34.6 H (20.0-27.5) mmol/L Anion Gap 8.40 L (10.00-18.00) mmol/L BUN 29.0 H (9.0-27.0) mg/dL BUN/Creatinine Ratio 32.22 H (12.00-20.00) Ratio Albumin 3.7 L (3.8-4.9) g/dL Albumin/Globulin Ratio 1.48 L (1.60-3.17) g/dL H & H 04/21/22 Range/Units 06:19 Hgb 11.5 L (12.0-15.0) g/dL Hct 37.2 (37.2-46.3) % Result Diagrams: 04/21/22 06:19 04/21/22 06:19 Assessment and Plan (1) Patellar fracture Current Visit: Yes Status: Acute Code(s): S82.009A - UNSP FRACTURE OF UNSP PATELLA, INIT FOR CLOS FX SNOMED Code(s): 17417130 (2) Radial head fracture Current Visit: Yes Status: Acute Code(s): S52.123A - DISP FX OF HEAD OF UNSP RADIUS, INIT FOR CLOS FX SNOMED Code(s): 014879435 Plan: The clinical and x-ray findings were discussed with the patient. The case was discussed at length with Dr. Camara. We are treating both fractures nonoperatively. She may continue in left long arm splint for approximately 5-7 days for comfort then may start gentle ROM of the elbow. She will continue in knee immobilizer then transition to a hinged knee brace locked in extension. She may weightbear as tolerated in knee immobilizer and knee brace. Local wound to right knee abrasion with nonstick dressing and changed daily. Case management to help with discharge planning.
[2022-04-21] MEDS: DULoxetine HCL 30 MG CAPSULE.DR PO SCH (12:44)
[2022-04-21] MEDS: VERAPAMIL SR 120 MG TABLET.ER PO SCH (12:44)
[2022-04-21] MEDS: predniSONE 5 MG TAB PO SCH (12:44)
[2022-04-21] MEDS: HYDROcodone/APAP 5-325MG 1 EACH TAB PO PRN (16:17)
[2022-04-21] MEDS: KETOROLAC 15 MG/ML 1 ML VIAL IVP PRN (18:25)
[2022-04-21] MEDS: MELATONIN 5 MG TABLET PO SCH (20:41)
[2022-04-21] MEDS: LORATADINE 10 MG TAB PO SCH (20:41)
[2022-04-21] MEDS: MONTELUKAST 10 MG TAB PO SCH (20:42)
[2022-04-21 21:02] LABS: Glucose,Whole Blood 120 mg/dL (70-110)
[2022-04-22] MEDS: HYDROcodone/APAP 5-325MG 1 EACH TAB PO PRN ×3 (03:04→11:57)
[2022-04-22] MEDS: KETOROLAC 15 MG/ML 1 ML VIAL IVP PRN (04:19)
[2022-04-22 08:10] VITALS: BP 128/73; RESP 17; TEMP 97.4
[2022-04-22] MEDS: predniSONE 5 MG TAB PO SCH (08:26)
[2022-04-22] MEDS: PANTOPRAZOLE 40 MG TABLET PO SCH (08:26)
[2022-04-22] MEDS: FUROSEMIDE 40 MG TAB PO SCH (08:26)
[2022-04-22] MEDS: MELOXICAM 7.5 MG TAB PO SCH (08:26)
[2022-04-22] MEDS: DULoxetine HCL 30 MG CAPSULE.DR PO SCH (08:26)
[2022-04-22] MEDS: FERROUS SULFATE 325 MG TAB PO SCH (08:26)
[2022-04-22] MEDS: THEOPHYLLINE 24 HOUR 400 MG CAP.ER.24H PO SCH (08:26)
[2022-04-22] MEDS: VERAPAMIL SR 120 MG TABLET.ER PO SCH (08:26)
[2022-04-22] MEDS: MAGNESIUM OXIDE 400 MG TAB PO SCH (08:26)
[2022-04-22] MEDS: POTASSIUM CHLORIDE ER 20 MEQ TAB.ER PO SCH (08:26)
[2022-04-22] MEDS: IPRATROPIUM-ALBUTEROL 3 ML NEB INHALATION PRN ×2 (08:32→12:01)
[2022-04-22] MEDS: FORMOTEROL FUMARATE 20 MCG/2 ML NEBU INHALATION SCH (08:32)
[2022-04-22] MEDS: BUDESONIDE 1 MG/2 ML NEBU INHALATION SCH (08:32)
[2022-04-22 08:36] VITALS: PULSE 92
--- NOTE | 2022-04-22 09:57 | P.DS ---
Providers Date of admission: 04/20/22 17:13 Expected date of discharge: 04/22/22 Attending physician: Maliha Nath MD Consults: 04/20/22 17:13 Consult Physician Urgent Consulting Provider: Irma Camara Consult Reason/Comments: Patellar fracture and distal radial head fracture Do you want consulting provider notified?: Yes Primary care physician: [facility] Course: 67-year-old female presenting with chief complaint of tripping on the oxygen cord resulting in laceration to the right knee. She fell forward. Afterwards she started having right knee pain and left wrist pain. She denies hitting her head, denies use of blood thinners, no loss of consciousness. Denies nausea, vomiting, chest pain, shortness of breath, vision or hearing changes, dizziness, numbness, tingling, weakness, fever, chills, abdominal pain. X-rays in the emergency department revealed radial head fracture on the left and right knee patellar fracture. Case was discussed with orthopedics who advised admission to medicine. Patient was admitted, she was seen by orthopedics who did not recommend any surgery. She was initiated on Toradol IV as well as morphine IV for pain con trol. Morphine was tapered to [place] orally. She was seen by physical therapy who recommended subacute rehab. Patient was referred to rehab by medical social consultant. Patient was accepted today to be transferred to rehab. During her stay in rehab she will require her nighttime BiPAP that she uses normally at home. Time for discharge 35 min Patient Condition at Discharge: Good Plan - Discharge Summary New Discharge Prescriptions: New HYDROcodone/APAP 5-325MG [[place] 5-325] 1 tab PO Q6HR PRN 7 Days #28 tab PRN Reason: Pain Continue Pantoprazole Sodium [Protonix] 40 mg PO DAILY DULoxetine HCL [Cymbalta] 30 mg PO DAILY Montelukast [Singulair] 10 mg PO HS Furosemide [Lasix] 40 mg PO DAILY #30 tablet Formoterol Fumarate [Perforomist] 20 mcg INHALATION RT-BID #30 ml Meloxicam 15 mg PO DAILY Multivit-Min/Iron/Folic/Lutein [Centrum Silver Women Tablet] 1 tab PO DAILY Albuterol Sulfate [Ventolin HFA] 2 puff INHALATION RT-Q6H PRN PRN Reason: Shortness Of Breath Melatonin 5 mg PO HS PRN PRN Reason: SLEEP Ipratropium-Albuterol Nebulize [Duoneb 0.5 mg-3 mg/3 ml Soln] 3 ml INHALATION RT-QID PRN PRN Reason: Shortness Of Breath Ferrous Sulfate [Iron (65 MG Elemental)] 325 mg PO DAILY Magnesium Oxide [Mag-Ox] 200 mg PO DAILY Potassium Chloride [Klor-Con 20] 20 meq PO DAILY Verapamil HCl [Verapamil ER] 120 mg PO DAILY predniSONE 5 mg PO DAILY Budesonide [Pulmicort] 1 mg INHALATION RT-BID Theophylline Anhydrous [Theophylline] 200 mg PO BID Cholecalciferol [Vitamin D3 (25 Mcg = 1000 Iu)] 50 mcg PO DAILY rOPINIRole HCL [Requip] 4 mg PO HS Cetirizine HCl 10 mg PO DAILY Discharge Medication List Pantoprazole Sodium [Protonix] 40 mg PO DAILY 12/30/20 [History] DULoxetine HCL [Cymbalta] 30 mg PO DAILY 01/15/21 [History] Montelukast [Singulair] 10 mg PO HS 02/19/21 [History] Ipratropium-Albuterol Nebulize [Duoneb 0.5 mg-3 mg/3 ml Soln] 3 ml INHALATION RT-QID PRN 05/22/21 [History] Furosemide [Lasix] 40 mg PO DAILY #30 tablet 06/10/21 [Rx] Ferrous Sulfate [Iron (65 MG Elemental)] 325 mg PO DAILY 07/04/21 [History] Formoterol Fumarate [Perforomist] 20 mcg INHALATION RT-BID #30 ml 07/06/21 [Rx] Magnesium Oxide [Mag-Ox] 200 mg PO DAILY 07/14/21 [History] Potassium Chloride [Klor-Con 20] 20 meq PO DAILY 07/14/21 [History] Budesonide [Pulmicort] 1 mg INHALATION RT-BID 08/05/21 [History] Meloxicam 15 mg PO DAILY 08/05/21 [History] Verapamil HCl [Verapamil ER] 120 mg PO DAILY 08/05/21 [History] predniSONE 5 mg PO DAILY 08/05/21 [History] Theophylline Anhydrous [Theophylline] 200 mg PO BID 09/01/21 [History] Albuterol Sulfate [Ventolin HFA] 2 puff INHALATION RT-Q6H PRN 04/20/22 [History] Cetirizine HCl 10 mg PO DAILY 04/20/22 [History] Cholecalciferol [Vitamin D3 (25 Mcg = 1000 Iu)] 50 mcg PO DAILY 04/20/22 [History] Melatonin 5 mg PO HS PRN 04/20/22 [History] Multivit-Min/Iron/Folic/Lutein [Centrum Silver Women Tablet] 1 tab PO DAILY 04/20/22 [History] rOPINIRole HCL [Requip] 4 mg PO HS 04/20/22 [History] HYDROcodone/APAP 5-325MG [[place] 5-325] 1 tab PO Q6HR PRN 7 Days #28 tab 04/22/22 [Rx] Follow up Appointment(s)/Referral(s): Kareem Ayon, [NON-STAFF] - As Needed Gavin Riggs [Primary Care Provider] - 1-2 days
--- NOTE | 2022-04-22 11:24 | P.PN ---
Subjective Progress Note Date: 04/22/22 This patient is a 67-year-old female who is admitted for rehab placement and pain control. Orthopedics is following the patient in regards to a right minimally displaced patella fracture and a left nondisplaced radial neck fracture. Patient does have a history of right TKA in 2000. Patient is examined bedside this morning. She states the pain in her right knee and left elbow well-controlled at this time. Left upper extremity currently in a splint. Her right lower extremity is mobilized in a knee immobilizer. Per nursing patient will be discharged to rehab today. There are no new complaints at this time. Objective - Vital Signs Vital signs: Vital Signs Temp 97.4 F L 04/22/22 08:09 Pulse 92 04/22/22 08:54 Resp 17 04/22/22 08:09 BP 128/73 04/22/22 08:09 Pulse Ox 93 L 04/22/22 08:09 FiO2 Intake & Output 04/21/22 04/22/22 04/22/22 18:59 06:59 18:59 Intake Total 590 Balance 590 Intake: Oral 590 Other: Voiding Method Bedside Commode Bedside Commode # Voids 3 600 - Exam On examination, patient is sitting up in bed in no apparent distress. She is alert and oriented 3. On examination of the right lower extremity, there is a knee immobilizer in place. The immobilizer is opened and reveals a saturated dressing at the anterior knee. Dressing is removed and reveals a superficial 2 cm skin tear at the anterior knee with a small amount of bleeding. There is diffuse pain on palpation of the knee. Motor and sensory function is intact of the right lower extremity. Dorsalis pedis pulse palpable, the right lower ex tremity is warm and well-perfused with brisk capillary refill distally. Calf is soft and nontender palpation. On inspection of the left upper extremity, there is a long-arm splint placed. The visible portion of the fingers and hand are warm and well-perfused with brisk capillary refill distally. Patient is able to wiggle fingers properly. Sensation is intact of the hand and fingers. - Labs CBC & Chem 7: 04/21/22 06:19 04/21/22 06:19 Labs: Abnormal Lab Results - Last 24 Hours (Table) 04/21/22 Range/Units 21:00 POC Glucose (mg/dL) 120 H (70-110) mg/dL Assessment and Plan Assessment: Right minimally displaced patella fracture with history of TKA in 2000 Left nondisplaced radial neck fracture Plan: - No surgical intervention planned at this time. Patient may weight-bear as tolerated on the right lower extremity in a hinged knee brace. Hinged knee brace should remain locked in extension. - Keep current splint in place of the left upper extremity. We'll plan to remove the splint in 1 week and begin gentle range of motion of the elbow as tolerated. Nonweightbearing left upper extremity. - Pain management as needed. - Daily dressing changes to anterior right knee. Patient will be discharged on Keflex 500 mg QID for wound healing prophylaxis. - DVT prophylaxis per internal medicine. - Patient will need follow-up in the office in 1 week repeat x-rays.
== END 2022-04-22 12:40 ==
LOC: EC 12:26 → 4SSUR 17:13
PROVIDERS: ADMIT Internal Medicine; ATTEND Internal Medicine
DX: S82.031A Displaced transverse fracture of right patella, initial encounter for closed fracture (principal); S52.135A Nondisplaced fracture of neck of left radius, initial encounter for closed fracture; M25.532 Pain in left wrist; I10 Essential (primary) hypertension; J44.9 Chronic obstructive pulmonary disease, unspecified; M06.9 Rheumatoid arthritis, unspecified; H91.90 Unspecified hearing loss, unspecified ear; G25.81 Restless legs syndrome; M85.80 Other specified disorders of bone density and structure, unspecified site; G89.29 Other chronic pain; M54.9 Dorsalgia, unspecified; F32.A Depression, unspecified; F41.9 Anxiety disorder, unspecified; F90.9 Attention-deficit hyperactivity disorder, unspecified type; W01.0XXA Fall on same level from slipping, tripping and stumbling without subsequent striking against object, initial encounter; Y92.009 Unspecified place in unspecified non-institutional (private) residence as the place of occurrence of the external cause; Z79.51 Long term (current) use of inhaled steroids; Z79.1 Long term (current) use of non-steroidal anti-inflammatories (NSAID); Z79.899 Other long term (current) drug therapy; Z88.5 Allergy status to narcotic agent; Z88.8 Allergy status to other drugs, medicaments and biological substances; Z91.048 Other nonmedicinal substance allergy status; Z99.81 Dependence on supplemental oxygen; Z20.822 Contact with and (suspected) exposure to COVID-19; Z96.651 Presence of right artificial knee joint; Z87.01 Personal history of pneumonia (recurrent); Z97.4 Presence of external hearing-aid; Z85.038 Personal history of other malignant neoplasm of large intestine; Z87.19 Personal history of other diseases of the digestive system; Z85.44 Personal history of malignant neoplasm of other female genital organs; Z86.16 Personal history of COVID-19; Z86.19 Personal history of other infectious and parasitic diseases; Z86.14 Personal history of Methicillin resistant Staphylococcus aureus infection; Z86.718 Personal history of other venous thrombosis and embolism; Z90.721 Acquired absence of ovaries, unilateral; Z90.710 Acquired absence of both cervix and uterus; Z90.49 Acquired absence of other specified parts of digestive tract; Z87.891 Personal history of nicotine dependence; Z98.890 Other specified postprocedural states; Z80.0 Family history of malignant neoplasm of digestive organs; Z82.5 Family history of asthma and other chronic lower respiratory diseases; Z80.8 Family history of malignant neoplasm of other organs or systems; Z80.49 Family history of malignant neoplasm of other genital organs
CPT/HCPCS: 96376 ×2; 96374; 96375; 96372; 99285; 94660 ×3; 94640 ×6; 94760; 97530; 97162; 97166; 80053; 85025; 87635; 73080; 73110; 73562; G0378 ×3; L1830; J2270 ×2; J1885 ×3; J7512 ×2

== ENCOUNTER 2022-08-24 18:57 | Inpatient (IN) | payer MEDICARE, OTHER ==
[2022-08-24] MEDS ORDERED: IPRATROPIUM 0.5 MG/2.5 ML NEBU INHALATION STA (19:11)
[2022-08-24] MEDS ORDERED: ALBUTEROL NEBULIZED 2.5 MG/3 ML INHALATION STA (19:11)
--- NOTE | 2022-08-24 19:13 | ED ---
General Adult HPI - General Chief complaint: Shortness of Breath Stated complaint: SOB Time Seen by Provider: 08/24/22 19:02 Source: patient, EMS, RN notes reviewed, old records reviewed Mode of arrival: EMS - History of Present Illness Initial comments: 67-year-old female with history of COPD presents with 4 days of increased cough and dyspnea. Patient has had some mild associated chest discomfort. No central radiating chest pain. No measured fever. No lower extremity pain or swelling. She is on 3 L of home oxygen normally. She had seen her primary care physician about a week ago, was not prescribed any medications at that time. She has been doing more updrafts at home without significant improvement. Patient was transported by paramedics, given albuterol, Atrovent and 125 mg of Solu-Medrol during transport. - Related Data Home Medications Medication Instructions Recorded Confirmed Pantoprazole Sodium [Protonix] 40 mg PO DAILY 12/30/20 04/20/22 DULoxetine HCL [Cymbalta] 30 mg PO DAILY 01/15/21 04/20/22 Montelukast [Singulair] 10 mg PO HS 02/19/21 04/20/22 Ipratropium-Albuterol Nebulize 3 ml INHALATION RT-QID PRN 05/22/21 04/20/22 [Duoneb 0.5 mg-3 mg/3 ml Soln] Ferrous Sulfate [Iron (65 MG 325 mg PO DAILY 07/04/21 04/20/22 Elemental)] Magnesium Oxide [Mag-Ox] 200 mg PO DAILY 07/14/21 04/20/22 Potassium Chloride [Klor-Con 20] 20 meq PO DAILY 07/14/21 04/20/22 Budesonide [Pulmicort] 1 mg INHALATION RT-BID 08/05/21 04/20/22 Meloxicam 15 mg PO DAILY 08/05/21 04/20/22 Verapamil HCl [Verapamil ER] 120 mg PO DAILY 08/05/21 04/20/22 predniSONE 5 mg PO DAILY 08/05/21 04/20/22 Theophylline Anhydrous 200 mg PO BID 09/01/21 04/20/22 [Theophylline] Albuterol Sulfate [Ventolin HFA] 2 puff INHALATION RT-Q6H PRN 04/20/22 04/20/22 Cetirizine HCl 10 mg PO DAILY 04/20/22 04/20/22 Cholecalciferol [Vitamin D3 (25 50 mcg PO DAILY 04/20/22 04/20/22 Mcg = 1000 Iu)] Melatonin 5 mg PO HS PRN 04/20/22 04/20/22 Multivit-Min/Iron/Folic/Lutein 1 tab PO DAILY 04/20/22 04/20/22 [Centrum Silver Women Tablet] rOPINIRole HCL [Requip] 4 mg PO HS 04/20/22 04/20/22 Previous Rx's Medication Instructions Recorded Furosemide [Lasix] 40 mg PO DAILY #30 tablet 06/10/21 Formoterol Fumarate [Perforomist] 20 mcg INHALATION RT-BID #30 ml 07/06/21 Cephalexin [Keflex] 500 mg PO Q6HR 7 Days #28 cap 04/22/22 HYDROcodone/APAP 5-325MG [[place] 1 tab PO Q6HR PRN 7 Days #28 tab 04/22/22 5-325] Allergies Allergy/AdvReac Type Severity Reaction Status Date / Time infliximab [From Remicade] Allergy Dyspnea/HIV Verified 04/20/22 18:05 ES propoxyphene [From Darvon] Allergy Rash/Hives Verified 04/20/22 18:05 adhesive tape AdvReac "is hard Verified 04/20/22 18:05 on skin" Review of Systems ROS Statement: Those systems with pertinent positive or pertinent negative responses have been documented in the HPI. ROS Other: All systems not noted in ROS Statement are negative. Past Medical History Past Medical History: Cancer, COPD, Deep Vein Thrombosis (DVT), Hearing Disorder / Deafness, Hypertension, Pneumonia, Rheumatoid Arthritis (RA) Additional Past Medical History / Comment(s): Bilateral hearing aid use. Colitis, Osteopenia, hx cancer of appendix, uses oxygen 3L continuous, chronic back pain, restless leg. 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 Hx Covid 01/16. History of Any Multi-Drug Resistant Organisms: MRSA Date of last positivie culture/infection: february 2021 MDRO Source:: urine Past Surgical History: Appendectomy, Bowel Resection, Hysterectomy, Joint Re placement, Orthopedic Surgery Additional Past Surgical History / Comment(s): Right knee replacement, EGD/colonoscopy, lasik eye surgery, right colectomy, colonoscopy 2016, pain procedure at [facility] with Dr Ty [facility] with unilateral oophorectomy 1983, partial vulvectomy 2000, Kyphoplasty. Past Anesthesia/Blood Transfusion Reactions: No Reported Reaction Additional Past Anesthesia/Blood Transfusion Reaction / Comment(s): States is not supposed to have general anesthesia. "Cannot have tube in throat." Past Psychological History: ADD/ADHD, Anxiety, Depression Smoking Status: Former smoker Past Alcohol Use History: None Reported Past Drug Use History: None Reported - Past Family History Father Family Medical History: Cancer, COPD Additional Family Medical History / Comment(s): COLON cancer. Mother Family Medical History: Cancer Additional Family Medical History / Comment(s): ESOPHAGUS cancer. Sister(s) Family Medical History: Cancer Additional Family Medical History / Comment(s): CERVICAL cancer, basal cell cancer. General Exam General appearance: alert, in distress (Mild respiratory distress) Head exam: Present: atraumatic, normocephalic Neck exam: Present: normal inspection. Absent: tenderness, meningismus Respiratory exam: Present: wheezes, accessory muscle use, decreased breath sounds. Absent: respiratory distress Cardiovascular Exam: Present: normal rhythm, tachycardia GI/Abdominal exam: Present: soft. Absent: distended, tenderness, guarding, rebound Extremities exam: Present: normal inspection, normal capillary refill. Absent: pedal edema Neurological exam: Present: alert, oriented X3, CN II-XII intact. Absent: motor sensory deficit Psychiatric exam: Present: normal affect, normal mood Skin exam: Present: warm, dry, intact. Absent: cyanosis, diaphoretic Course Vital Signs 08/24/22 08/24/22 08/24/22 19:00 19:06 19:33 Temperature Pulse Rate 116 H 105 H Respiratory 22 22 Rate O2 Sat by Pulse 94 L Oximetry 08/24/22 08/24/22 19:45 20:49 Temperature 98.4 F Pulse Rate 108 H Respiratory Rate O2 Sat by Pulse Oximetry EKG Findings - EKG Comments: EKG Findings:: EKG: Sinus tachycardia rate of 108, ME interval 137, QRS duration 71, QTC 363, no ST segment elevation. Medical Decision Making - Medical Decision Making 67-year-old female with COPD, increased cough and dyspnea. Patient is mildly hypoxic, increased work of breathing, wheezing throughout. Given albuterol, steroids, Atrovent. She continues to have moderate blister distress. She will benefit from an observation stay for IV steroids, continued nebulized albuterol Atrovent and antibiotics. Case discussed with [facility], will admit. - Lab Data Result diagrams: 08/24/22 19:17 08/24/22 19:17 Lab Results 08/24/22 08/24/22 08/24/22 Range/Units 19:17 19:17 19:17 WBC 16.6 H (3.8-10.6) k/uL RBC 4.26 (3.80-5.40) m/uL Hgb 13.2 (11.4-16.0) gm/dL Hct 41.5 (34.0-46.0) % MCV 97.3 (80.0-100.0) fL MCH 30.9 (25.0-35.0) pg MCHC 31.8 (31.0-37.0) g/dL RDW 13.6 (11.5-15.5) % Plt Count 235 (150-450) k/uL MPV 9.3 Neutrophils % 64 % Lymphocytes % 26 % Monocytes % 4 % Eosinophils % 4 % Basophils % 0 % Neutrophils # 10.6 H (1.3-7.7) k/uL Lymphocytes # 4.3 (1.0-4.8) k/uL Monocytes # 0.6 (0-1.0) k/uL Eosinophils # 0.6 (0-0.7) k/uL Basophils # 0.0 (0-0.2) k/uL PT 9.6 (9.0-12.0) sec INR 0.9 (<1.2) APTT 22.9 (22.0-30.0) sec Sodium 137 (137-145) mmol/L Potassium 4.7 (3.5-5.1) mmol/L Chloride 92 L (98-107) mmol/L Carbon Dioxide 37 H (22-30) mmol/L Anion Gap 8 mmol/L BUN 29 H (7-17) mg/dL Creatinine 0.68 (0.52-1.04) mg/dL Est GFR (CKD-EPI)AfAm >90 (>60 ml/min/1.73 sqM) Est GFR (CKD-EPI)NonAf 90 (>60 ml/min/1.73 sqM) Glucose 115 H (74-99) mg/dL Plasma Lactic Acid Osmani (0.7-2.0) mmol/L Calcium 9.4 (8.4-10.2) mg/dL Magnesium 2.0 (1.6-2.3) mg/dL Total Bilirubin 0.5 (0.2-1.3) mg/dL AST 24 (14-36) U/L ALT 17 (4-34) U/L Alkaline Phosphatase 88 (38-126) U/L Total Protein 6.5 (6.3-8.2) g/dL Albumin 3.9 (3.5-5.0) g/dL 08/24/22 Range/Units 19:31 WBC (3.8-10.6) k/uL RBC (3.80-5.40) m/uL Hgb (11.4-16.0) gm/dL Hct (34.0-46.0) % MCV (80.0-100.0) fL MCH (25.0-35.0) pg MCHC (31.0-37.0) g/dL RDW (11.5-15.5) % Plt Count (150-450) k/uL MPV Neutrophils % % Lymphocytes % % Monocytes % % Eosinophils % % Basophils % % Neutrophils # (1.3-7.7) k/uL Lymphocytes # (1.0-4.8) k/uL Monocytes # (0-1.0) k/uL Eosinophils # (0-0.7) k/uL Basophils # (0-0.2) k/uL PT (9.0-12.0) sec INR (<1.2) APTT (22.0-30.0) sec Sodium (137-145) mmol/L Potassium (3.5-5.1) mmol/L Chloride (98-107) mmol/L Carbon Dioxide (22-30) mmol/L Anion Gap mmol/L BUN (7-17) mg/dL Creatinine (0.52-1.04) mg/dL Est GFR (CKD-EPI)AfAm (>60 ml/min/1.73 sqM) Est GFR (CKD-EPI)NonAf (>60 ml/min/1.73 sqM) Glucose (74-99) mg/dL Plasma Lactic Acid Osmani 1.6 (0.7-2.0) mmol/L Calcium (8.4-10.2) mg/dL Magnesium (1.6-2.3) mg/dL Total Bilirubin (0.2-1.3) mg/dL AST (14-36) U/L ALT (4-34) U/L Alkaline Phosphatase (38-126) U/L Total Protein (6.3-8.2) g/dL Albumin (3.5-5.0) g/dL Disposition Clinical Impression: Acute exacerbation of chronic obstructive airways disease Disposition: ADMITTED IP TO THIS HOSP Condition: Stable Is patient prescribed a controlled substance at d/c from ED?: No Time of Disposition: 20:59
[2022-08-24 19:34] LABS: Basophils % (A) 0 %; Eosinophils # (A) 0.6 k/uL (0-0.7); Eosinophils % (A) 4 %; HCT 41.5 % (34.0-46.0); HGB 13.2 gm/dL (11.4-16.0); Lymphocytes # (A) 4.3 k/uL (1.0-4.8); Lymphocytes % (A) 26 %; MCH 30.9 pg (25.0-35.0); MCHC 31.8 g/dL (31.0-37.0); MCV 97.3 fL (80.0-100.0); Mean Platelet Volume 9.3; Monocytes # (A) 0.6 k/uL (0-1.0); Monocytes % (A) 4 %; Neutrophils # (A) 10.6 k/uL (1.3-7.7); Neutrophils % (A) 64 %; Platelet Count 235 k/uL (150-450); RBC 4.26 m/uL (3.80-5.40); RDW 13.6 % (11.5-15.5); WBC 16.6 k/uL (3.8-10.6)
[2022-08-24 19:45] LABS: ALT 17 U/L (4-34); AST 24 U/L (14-36); African American GFR (CKD) >90 (>60 ml/min/1.73 sqM); Albumin 3.9 g/dL (3.5-5.0); Alkaline Phosphatase 88 U/L (38-126); Anion Gap 8 mmol/L; Blood Urea Nitrogen 29 mg/dL (7-17); Calcium 9.4 mg/dL (8.4-10.2); Carbon Dioxide 37 mmol/L (22-30); Chloride 92 mmol/L (98-107); Glucose 115 mg/dL (74-99); Non-African American GFR(CKD) 90 (>60 ml/min/1.73 sqM); Potassium 4.7 mmol/L (3.5-5.1); Sodium 137 mmol/L (137-145); Total Bilirubin 0.5 mg/dL (0.2-1.3); Total Protein 6.5 g/dL (6.3-8.2)
[2022-08-24 19:48] LABS: INR 0.9 (<1.2); Partial Thromboplastin Time 22.9 sec (22.0-30.0); Prothrombin Time 9.6 sec (9.0-12.0)
[2022-08-24] MEDS ORDERED: NALOXONE 0.4 MG/ML 1 ML VIAL IVP PRN (20:38)
--- NOTE | 2022-08-24 20:54 | XR ---
EXAMINATION: XR chest 2V DATE AND TIME: 08/24/2022 7:50 PM CLINICAL INDICATION: PHH; difficulty breathing TECHNIQUE: AP and lateral COMPARISON: 09/01/2021 FINDINGS: The overlying soft tissues are prominent. The lungs are clear. The pleural spaces are negative. The cardiac silhouette is not enlarged. The remainder of the mediastinal silhouette is unremarkable. The skeletal structures and soft tissues are negative for acute findings. IMPRESSION: No definite acute process.
[2022-08-24] MEDS: AZITHROMYCIN 500 MG TAB PO SCH (21:11)
[2022-08-24] MEDS: rOPINIRole HCL 4 MG TABLET PO SCH (22:36)
[2022-08-24] MEDS: MELATONIN 5 MG TABLET PO SCH (22:36)
--- NOTE | 2022-08-25 01:05 | P.HPIM ---
History of Present Illness H&P Date: 08/24/22 The patient is a 67-year-old female with a PMH of COPD not on home oxygen who presents to the emergency room with complaints of gradually worsening shortness of breath. The patient reports her breathing has been worsening over the past 3-4 days, with somewhat increased cough productive of yellow-green phlegm, similar to baseline. She denies chest discomfort, fever, chills, lower extrem ity swelling, or lower extremity pain. She reports using her inhalers multiple times over the past 2 days without any significant improvement in her symptoms. Chest x-ray in the emergency room was unremarkable. EKG reveals sinus tachycardia at [address]/T-wave changes noted as reviewed by me. Laboratory evaluation was remarkable for leukocytosis of 16.6, CO2 37, BUN 29, and lactic acid 1.6. The patient was hypoxic in the emergency room with SpO2 94% on 3 L is a cannula oxygen. Review of systems: Pertinent positives and negatives as discussed in HPI, a complete review of systems was performed and all other systems are negative. Physical examination: General: non toxic, no distress, appears at stated age, obese Derm: no unusual rashes/lesions, warm Head: atraumatic, normocephalic, symmetric Eyes: EOMI, no lid lag, anicteric sclera, pupils equal round reactive to light ENT: Nose and ears atraumatic Neck: No cervical lymphadenopathy, trachea midline, supple Mouth: no lip lesion, mucus membranes moist Cardiovascular: S1S2 reg, no murmur, positive dorsalis pedis pulse bilateral, no edema Lungs: Poor air entry bilaterally with wheezing noted, no rhonchi, no rales, no accessory muscle use Abdominal: soft, nontender to palpation, no guarding Ext: muscle strength 5 out of 5 in all 4 extremities grossly, no gross muscle atrophy, no contractures, Neuro: CN II-XI grossly intact, no gross focal neuro deficits Psych: Alert, oriented, appropriate affect Assessment/plan Acute COPD exacerbation with acute hypoxic respiratory failure -Continue with Solu-Medrol, DuoNeb's -Continue with azithromycin -Supplemental oxygen Metabolic alkalosis, suspected compensatory secondary to respiratory acidosis -Obtain VBG DVT prophylaxis -Heparin subcu The patient is admitted with an anticipated less than 2 midnight stay for evaluation of acute COPD exacerbation. CODE STATUS: Full Code Discussed with: Patient Anticipated discharge date: in am Anticipated discharge place: Home Past Medical History Past Medical History: Cancer, COPD, Deep Vein Thrombosis (DVT), Hearing Disorder / Deafness, Hypertension, Pneumonia, Rheumatoid Arthritis (RA) Additional Past Medical History / Comment(s): Bilateral hearing aid use. Colitis, Osteopenia, hx cancer of appendix, uses oxygen 3L continuous, chronic back pain, restless leg. 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 Hx Covid 01/16. History of Any Multi-Drug Resistant Organisms: MRSA Date of last positivie culture/infection: february 2021 MDRO Source:: urine Past Surgical History: Appendectomy, Bowel Resection, Hysterectomy, Joint Replacement, Orthopedic Surgery Additional Past Surgical History / Comment(s): Right knee replacement, EGD/colonoscopy, lasik eye surgery, right colectomy, colonoscopy 2016, pain procedure at [facility] with Dr yT [facility] with unilateral oophorectomy 1983, partial vulvectomy 2000, Kyphoplasty. Past Anesthesia/Blood Transfusion Reactions: No Reported Reaction Additional Past Anesthesia/Blood Transfusion Reaction / Comment(s): States is not supposed to have general anesthesia. "Cannot have tube in throat." Past Psychological History: ADD/ADHD, Anxiety, Depression Smoking Status: Former smoker Past Alcohol Use History: None Reported Past Drug Use History: None Reported - Past Family History Father Family Medical History: Cancer, COPD Additional Family Medical History / Comment(s): COLON cancer. Mother Family Medical History: Cancer Additional Family Medical History / Comment(s): ESOPHAGUS cancer. Sister(s) Family Medical History: Cancer Additional Family Medical History / Comment(s): CERVICAL cancer, basal cell cancer. Medications and Allergies Home Medications Medication Instructions Recorded Confirmed Type Pantoprazole Sodium [Protonix] 40 mg PO DAILY 12/30/20 08/24/22 History DULoxetine HCL [Cymbalta] 30 mg PO DAILY 01/15/21 08/24/22 History Montelukast [Singulair] 10 mg PO HS 02/19/21 08/24/22 History Ipratropium-Albuterol Nebulize 3 ml INHALATION RT-QID PRN 05/22/21 08/24/22 History [Duoneb 0.5 mg-3 mg/3 ml Soln] Furosemide [Lasix] 40 mg PO DAILY #30 tablet 06/10/21 08/24/22 Rx Ferrous Sulfate [Iron (65 MG 325 mg PO DAILY 07/04/21 08/24/22 History Elemental)] Formoterol Fumarate [Perforomist] 20 mcg INHALATION RT-BID #30 ml 07/06/21 08/24/22 Rx Magnesium Oxide [Mag-Ox] 200 mg PO DAILY 07/14/21 08/24/22 History Potassium Chloride [Klor-Con 20] 20 meq PO DAILY 07/14/21 08/24/22 History Budesonide [Pulmicort] 1 mg INHALATION RT-BID 08/05/21 08/24/22 History Meloxicam 15 mg PO DAILY 08/05/21 08/24/22 History Verapamil HCl [Verapamil ER] 120 mg PO DAILY 08/05/21 08/24/22 History predniSONE 5 mg PO DAILY 08/05/21 08/24/22 History Theophylline Anhydrous 200 mg PO BID 09/01/21 08/24/22 History [Theophylline] Albuterol Sulfate [Ventolin HFA] 2 puff INHALATION RT-Q6H PRN 04/20/22 08/24/22 History Cetirizine HCl 10 mg PO DAILY 04/20/22 08/24/22 History Cholecalciferol [Vitamin D3 (25 50 mcg PO DAILY 04/20/22 08/24/22 History Mcg = 1000 Iu)] Melatonin 5 mg PO HS PRN 04/20/22 08/24/22 History Multivit-Min/Iron/Folic/Lutein 1 tab PO DAILY 04/20/22 08/24/22 History [Centrum Silver Women Tablet] rOPINIRole HCL [Requip] 4 mg PO HS 04/20/22 08/24/22 History Albuterol Sulfate [Ventolin HFA] 2 puff INHALATION RT-Q6H PRN 08/24/22 08/24/22 History Allergies Allergy/AdvReac Type Severity Reaction Status Date / Time infliximab [From Remicade] Allergy Dyspnea/HIV Verified 08/24/22 21:02 ES propoxyphene [From Darvon] Allergy Rash/Hives Verified 08/24/22 21:02 adhesive tape AdvReac "is hard Verified 08/24/22 21:02 on skin" Physical Exam Vitals: Vital Signs Temp Pulse Resp Pulse Ox 08/24/22 20:49 98.4 F 08/24/22 19:45 108 H 08/24/22 19:33 105 H 08/24/22 19:06 22 08/24/22 19:00 116 H 22 94 L Intake and Output 08/24/22 08/24/22 08/25/22 14:59 22:59 06:59 Other: Weight 77.111 kg Results CBC & Chem 7: 08/24/22 19:17 08/24/22 19:17 Labs: Abnormal Lab Results - Last 24 Hours (Table) 08/24/22 08/24/22 Range/Units 19:17 19:17 WBC 16.6 H (3.8-10.6) k/uL Neutrophils # 10.6 H (1.3-7.7) k/uL Chloride 92 L (98-107) mmol/L Carbon Dioxide 37 H (22-30) mmol/L BUN 29 H (7-17) mg/dL Glucose 115 H (74-99) mg/dL
[2022-08-25 02:29] LABS: VBG PH 7.28 (7.31-7.41)
[2022-08-25] MEDS: methylPREDNISolone SOD SUCCI 125 MG/2 ML VIAL IV SCH ×4 (04:04→18:04)
[2022-08-25] MEDS: IPRATROPIUM-ALBUTEROL 3 ML NEB INHALATION SCH ×4 (07:25→19:47)
[2022-08-25] MEDS: HEPARIN SODIUM,PORCINE/PF 5,000 UNIT/0.5 ML SYRINGE SQ SCH ×2 (08:03→15:08)
[2022-08-25] MEDS: ACETAMINOPHEN TAB 325 MG TAB PO PRN ×3 (08:03→20:40)
--- NOTE | 2022-08-25 11:32 | P.CNPUL ---
History of Present Illness Consult date: 08/25/22 Requesting physician: Dionna Rene Reason for consult: dyspnea, COPD Chief complaint: Shortness of breath, wheeze History of present illness: This is a very pleasant 67-year-old female patient with a history of hypertension, rheumatoid arthritis, chronic lower extremity edema, attention deficit hyperactivity disorder, chronic back pain, COVID-19 pneumonia, chronic hypoxemic and hypercapnic respiratory failure utilizing oxygen at 4 L at home. She also has a noninvasive positive pressure ventilatory machine for nighttime. She is also noted to have a left upper lobe lung lesion measuring 18 x 13 mm. Based on these findings she was deactivated from the transplant list. Follow-up CAT scan with to be performed in September of this year. She follows with Dr. Goodman in our office for the same. She presented here to the emergency room yesterday with complaints of increasing shortness of breath, cough congestion chest tightness and wheezing. Chest x-ray shows no acute pulmonary process. White count 16.6. Hemoglobin 13.2. Sodium 137. Potassium 4.7. BUN 29. Creatinine 0.68. AST 24. ALT 17. She's been initiated on DuoNeb inhalations, IV Solu-Medrol. Heparin for DVT prophylaxis. Empiric antibiotics in the form of azithromycin. Again today in consultation on the regular medical floor. She is awake and alert in no acute distress. She was on BiPAP last evening 10/5 and 30% FiO2. Currently on 3 L nasal cannula. She is feeling a bit better today compared to yesterday. Not quite back to her baseline. Review of Systems REVIEW OF SYSTEMS: CONSTITUTIONAL: Denies any recent significant weight loss or weight gain. EYES: Denies change in vision. EARS, NOSE, MOUTH, THROAT: Denies headaches, denies sore throat. CARDIOVASCULAR: Denies chest pain, palpitations or syncopal episodes. RESPIRATORY: Positive for shortness of breath, cough, congestion no hemoptysis. GASTROINTESTINAL: Denies change in appetite, denies abdominal pain GENITOURINARY: Denies hematuria, denies infections. MUSKULOSKELETAL: Denies pain, denies swelling. INTEGUMENTARY: Denies rash, denies eczema. NEUROLOGICAL: Denies recent memory loss, no recent seizure activity. PSYCHIATRIC: Denies anxiety, denies depression. HEMATOLOGIC/LYMPHATIC: Denies anemia, denies enlarged lymph nodes. Past Medical History Past Medical History: Cancer, COPD, Deep Vein Thrombosis (DVT), Hearing Disorder / Deafness, Hypertension, Pneumonia, Rheumatoid Arthritis (RA) Additional Past Medical History / Comment(s): Bilateral hearing aid use. Colitis, Osteopenia, hx cancer of appendix, uses oxygen 3L continuous, chronic back pain, restless leg. 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 Hx Covid 01/16. History of Any Multi-Drug Resistant Organisms: MRSA Date of last positivie culture/infection: february 2021 MDRO Source:: urine Past Surgical History: Appendectomy, Bowel Resection, Hysterectomy, Joint Replacement, Orthopedic Surgery Additional Past Surgical History / Comment(s): Right knee replacement, EG D/colonoscopy, lasik eye surgery, right colectomy, colonoscopy 2016, pain procedure at [facility] with Dr Ty [facility] with unilateral oophorectomy 1983, partial vulvectomy 2000, Kyphoplasty. Past Anesthesia/Blood Transfusion Reactions: No Reported Reaction Additional Past Anesthesia/Blood Transfusion Reaction / Comment(s): States is not supposed to have general anesthesia. "Cannot have tube in throat." Past Psychological History: ADD/ADHD, Anxiety, Depression Smoking Status: Former smoker Past Alcohol Use History: None Reported Past Drug Use History: None Reported - Past Family History Father Family Medical History: Cancer, COPD Additional Family Medical History / Comment(s): COLON cancer. Mother Family Medical History: Cancer Additional Family Medical History / Comment(s): ESOPHAGUS cancer. Sister(s) Family Medical History: Cancer Additional Family Medical History / Comment(s): CERVICAL cancer, basal cell cancer. Medications and Allergies Home Medications Medication Instructions Recorded Confirmed Type Pantoprazole Sodium [Protonix] 40 mg PO DAILY 12/30/20 08/24/22 History DULoxetine HCL [Cymbalta] 30 mg PO DAILY 01/15/21 08/24/22 History Montelukast [Singulair] 10 mg PO HS 02/19/21 08/24/22 History Ipratropium-Albuterol Nebulize 3 ml INHALATION RT-QID PRN 05/22/21 08/24/22 H istory [Duoneb 0.5 mg-3 mg/3 ml Soln] Furosemide [Lasix] 40 mg PO DAILY #30 tablet 06/10/21 08/24/22 Rx Ferrous Sulfate [Iron (65 MG 325 mg PO DAILY 07/04/21 08/24/22 History Elemental)] Formoterol Fumarate [Perforomist] 20 mcg INHALATION RT-BID #30 ml 07/06/21 08/24/22 Rx Magnesium Oxide [Mag-Ox] 200 mg PO DAILY 07/14/21 08/24/22 History Potassium Chloride [Klor-Con 20] 20 meq PO DAILY 07/14/21 08/24/22 History Budesonide [Pulmicort] 1 mg INHALATION RT-BID 08/05/21 08/24/22 History Meloxicam 15 mg PO DAILY 08/05/21 08/24/22 History Verapamil HCl [Verapamil ER] 120 mg PO DAILY 08/05/21 08/24/22 History predniSONE 5 mg PO DAILY 08/05/21 08/24/22 History Theophylline Anhydrous 200 mg PO BID 09/01/21 08/24/22 History [Theophylline] Albuterol Sulfate [Ventolin HFA] 2 puff INHALATION RT-Q6H PRN 04/20/22 08/24/22 History Cetirizine HCl 10 mg PO DAILY 04/20/22 08/24/22 History Cholecalciferol [Vitamin D3 (25 50 mcg PO DAILY 04/20/22 08/24/22 History Mcg = 1000 Iu)] Melatonin 5 mg PO HS PRN 04/20/22 08/24/22 History Multivit-Min/Iron/Folic/Lutein 1 tab PO DAILY 04/20/22 08/24/22 History [Centrum Silver Women Tablet] rOPINIRole HCL [Requip] 4 mg PO HS 04/20/22 08/24/22 History Albuterol Sulfate [Ventolin HFA] 2 puff INHALATION RT-Q6H PRN 08/24/22 08/24/22 History Allergies Allergy/AdvReac Type Severity Reaction Status Date / Time infliximab [From Remicade] Allergy Dyspnea/HIV Verified 08/24/22 21:02 ES propoxyphene [From Darvon] Allergy Rash/Hives Verified 08/24/22 21:02 adhesive tape AdvReac "is hard Verified 08/24/22 21:02 on skin" Physical Exam Vitals: Vital Signs Temp Pulse Pulse Resp BP BP Pulse Ox 08/25/22 09:17 08/25/22 07:36 96 08/25/22 07:26 94 L 08/25/22 07:25 92 08/25/22 07:00 98.1 F 98 18 152/75 94 L 08/25/22 06:19 93 30 H 154/74 99 08/25/22 04:28 95 24 93 L 08/25/22 04:07 96 24 116/66 92 L 08/25/22 03:13 08/24/22 20:49 98.4 F 08/24/22 19:45 108 H 08/24/22 19:33 105 H 08/24/22 19:06 22 08/24/22 19:00 116 H 22 94 L FiO2 08/25/22 09:17 30 08/25/22 07:36 08/25/22 07:26 08/25/22 07:25 08/25/22 07:00 08/25/22 06:19 08/25/22 04:28 08/25/22 04:07 08/25/22 03:13 30 08/24/22 20:49 08/24/22 19:45 08/24/22 19:33 08/24/22 19:06 08/24/22 19:00 Intake and Output 08/24/22 08/25/22 08/25/22 22:59 06:59 14:59 Other: Weight 77.111 kg GENERAL EXAM: Alert, very pleasant 67-year-old female, on 3 L nasal cannula, comfortable in no apparent distress. HEAD: Normocephalic. EYES: Normal reaction of pupils, equal size. NOSE: Clear with pink turbinates. THROAT: No erythema or exudates. NECK: No masses, no JVD. CHEST: No chest wall deformity. LUNGS: Equal air entry with bilateral end expiratory wheeze, diminished. CVS: S1 and S2 normal with no audible murmur, regular rhythm. ABDOMEN: No hepatosplenomegaly, normal bowel sounds, no guarding or rigidity. SPINE: No scoliosis or deformity SKIN: No rashes CENTRAL NERVOUS SYSTEM: No focal deficits, tone is normal in all 4 extremities. EXTREMITIES: There is no peripheral edema. No clubbing, no cyanosis. Peripheral pulses are intact. Results - Laboratory Findings CBC and BMP: 08/24/22 19:17 08/24/22 19:17 PT/INR, D-dimer PT 9.6 sec (9.0-12.0) 10/27/22 19:17 INR 0.9 (<1.2) 08/24/22 19:17 Abnormal lab findings: Abnormal Labs 08/24/22 08/24/22 08/25/22 19:17 19:17 01:38 WBC 16.6 H Neutrophils # 10.6 H VBG pH 7.28 L VBG pCO2 82 H* VBG HCO3 38 H Chloride 92 L Carbon Dioxide 37 H BUN 29 H Glucose 115 H - Diagnostic Findings Chest x-ray: image reviewed Assessment and Plan Assessment: Acute exacerbation of chronic obstructive pulmonary disease, no evidence of pneumonia. Maintained on prednisone 5 mg daily Acute on chronic type toxemic respiratory failure secondary to above, does have home oxygen at 4 L/m per nasal cannula Acute on chronic hypercapnic respiratory failure secondary to above, on BiPAP 10/03 in the outpatient setting History of a left upper lobe lesion measuring 18 x 13 mm in size. Being followed in the outpatient setting History of CoVID in 19 pneumonia History of chronic lower extremity edema Hypertension Attention deficit hyperactivity disorder Rheumatoid arthritis Chronic back pain Former smoker Plan: The patient was seen and evaluated Chest x-ray, labs and medications reviewed Continue DuoNeb inhalations, add Pulmicort and Perforomist inhalations Continue IV Solu-Medrol 60 mg every 6 hours Empiric antibiotics in the form of azithromycin Titrate the FiO2 as tolerated Continue BiPAP during the evenings and throughout the day while napping We will continue to follow and make further recommendations based on her clinical status I have personally seen and examined the patient, performed the documentation and the assessment and plan as written. Number of minutes spent on the visit: 20.
--- NOTE | 2022-08-25 14:24 | P.PN ---
Subjective Progress Note Date: 08/25/22 The patient is a 67-year-old female with a PMH of COPD not on home oxygen who presents to the emergency room with complaints of gradually worsening shortness of breath. The patient reports her breathing has been worsening over the past 3-4 days, with somewhat increased cough productive of yellow-green phlegm, similar to baseline. Chest x-ray in the emergency room was unremarkable. EKG reveals sinus tachycardia at [address]/T-wave changes noted as reviewed by me. Laboratory evaluation was remarkable for leukocytosis of 16.6, CO2 37, BUN 29, and lactic acid 1.6. The patient was hypoxic in the emergency room with SpO2 94% on 3 L is a cannula oxygen. Patient was seen and examined. No acute events overnight. Patient reports continued shortness of breath, slightly improved since admission. She denies any chest pain or palpitations. No lightheadedness. No nausea or vomiting. No fever or chills. General: non toxic, no distress, appears at stated age, obese Derm: no unusual rashes/lesions, warm Head: atraumatic, normocephalic, symmetric Eyes: EOMI, no lid lag, anicteric sclera ENT: Nose and ears atraumatic Neck: No cervical lymphadenopathy, trachea midline, supple Mouth: no lip lesion, mucus membranes moist Cardiovascular: S1S2 reg, no murmur, no edema Lungs: Poor air entry bilaterally with wheezing noted, no rhonchi, no rales, no accessory muscle use Abdominal: soft, nontender to palpation, no guarding Ext: muscle strength 5 out of 5 in all 4 extremities grossly, no gross muscle atrophy, no contractures, Neuro: no gross focal neuro deficits Psych: Alert, oriented, appropriate affect #Acute COPD exacerbation #Acute on chronic hypoxic respiratory failure #Respiratory acidosis with secondary metabolic alkalosis -Continue with Solu-Medrol -DuoNeb's scheduled and as needed for shortness of breath and wheezing. -Continue with azithromycin -Supplemental oxygen to maintain O2 saturation greater than 92%. -Pulmonology consulted -Continue Pulmicort, formoterol Chronic conditions: Hypertension, ADHD, rheumatoid arthritis DVT prophylaxis: Heparin Discussed with: Patient Anticipated discharge: 2-[address]: Home A total of 25 minutes was spent on the care of this complex patient more than 50% of the time was spent in counseling and care coordination. Objective - Vital Signs Vital signs: Vital Signs Temp 98.1 F 08/25/22 07:00 Pulse 107 H 08/25/22 11:58 Resp 18 08/25/22 07:00 BP 152/75 08/25/22 07:00 Pulse Ox 94 L 08/25/22 07:26 FiO2 30 08/25/22 09:17 Intake & Output 08/24/22 08/25/22 08/25/22 18:59 06:59 18:59 Weight 77.111 kg Other: # Voids 3 - Labs CBC & Chem 7: 08/24/22 19:17 08/24/22 19:17 Labs: Abnormal Lab Results - Last 24 Hours (Table) 08/24/22 08/24/22 08/25/22 Range/Units 19:17 19:17 01:38 WBC 16.6 H (3.8-10.6) k/uL Neutrophils # 10.6 H (1.3-7.7) k/uL VBG pH 7.28 L (7.31-7.41) VBG pCO2 82 H* (37-51) mmHg VBG HCO3 38 H (24-28) mmol/L Chloride 92 L (98-107) mmol/L Carbon Dioxide 37 H (22-30) mmol/L BUN 29 H (7-17) mg/dL Glucose 115 H (74-99) mg/dL
[2022-08-25] MEDS: FORMOTEROL FUMARATE 20 MCG/2 ML NEBU INHALATION SCH (19:47)
[2022-08-25] MEDS: BUDESONIDE 1 MG/2 ML NEBU INHALATION SCH (19:47)
[2022-08-25] MEDS: MELATONIN 5 MG TABLET PO SCH (20:41)
[2022-08-25] MEDS: rOPINIRole HCL 4 MG TABLET PO SCH (20:41)
[2022-08-25] MEDS: MONTELUKAST 10 MG TAB PO SCH (20:41)
[2022-08-25] MEDS: THEOPHYLLINE 24 HOUR 400 MG CAP.ER.24H PO SCH (20:41)
[2022-08-25] MEDS: AZITHROMYCIN 500 MG TAB PO SCH (20:41)
[2022-08-25] MEDS: IPRATROPIUM-ALBUTEROL 3 ML NEB INHALATION PRN (23:21)
[2022-08-26] MEDS: methylPREDNISolone SOD SUCCI 125 MG/2 ML VIAL IV SCH ×5 (00:15→23:33)
[2022-08-26] MEDS: HEPARIN SODIUM,PORCINE/PF 5,000 UNIT/0.5 ML SYRINGE SQ SCH ×4 (00:16→23:33)
[2022-08-26] MEDS: IPRATROPIUM-ALBUTEROL 3 ML NEB INHALATION PRN ×2 (03:09→23:12)
[2022-08-26] MEDS: PANTOPRAZOLE 40 MG TABLET PO SCH (06:25)
[2022-08-26 07:43] LABS: HCT 40.2 % (34.0-46.0); HGB 12.9 gm/dL (11.4-16.0); Hypochromasia Slight; MCH 31.3 pg (25.0-35.0); MCV 97.9 fL (80.0-100.0); Mean Platelet Volume 9.2; Platelet Count 285 k/uL (150-450); RBC 4.11 m/uL (3.80-5.40); RDW 13.5 % (11.5-15.5); WBC 17.2 k/uL (3.8-10.6)
[2022-08-26] MEDS: VERAPAMIL SR 120 MG TABLET.ER PO SCH (07:45)
[2022-08-26] MEDS: DULoxetine HCL 30 MG CAPSULE.DR PO SCH (07:45)
[2022-08-26] MEDS: LORATADINE 10 MG TAB PO SCH (07:45)
[2022-08-26] MEDS: FUROSEMIDE 40 MG TAB PO SCH (07:45)
[2022-08-26 08:06] LABS: African American GFR (CKD) >90 (>60 ml/min/1.73 sqM); Anion Gap 10 mmol/L; Blood Urea Nitrogen 30 mg/dL (7-17); Carbon Dioxide 34 mmol/L (22-30); Chloride 95 mmol/L (98-107); Glucose 149 mg/dL (74-99); Non-African American GFR(CKD) >90 (>60 ml/min/1.73 sqM); Potassium 4.5 mmol/L (3.5-5.1); Sodium 139 mmol/L (137-145)
[2022-08-26] MEDS: BUDESONIDE 1 MG/2 ML NEBU INHALATION SCH ×2 (09:01→20:10)
[2022-08-26] MEDS: IPRATROPIUM-ALBUTEROL 3 ML NEB INHALATION SCH ×4 (09:01→20:10)
[2022-08-26] MEDS: FORMOTEROL FUMARATE 20 MCG/2 ML NEBU INHALATION SCH ×2 (09:01→20:10)
--- NOTE | 2022-08-26 11:09 | P.PN ---
Subjective Progress Note Date: 08/26/22 The patient is a 67-year-old female with a PMH of COPD not on home oxygen who presents to the emergency room with complaints of gradually worsening shortness of breath. The patient reports her breathing has been worsening over the past 3-4 days, with somewhat increased cough productive of yellow-green phlegm, similar to baseline. Chest x-ray in the emergency room was unremarkable. EKG reveals sinus tachycardia at [address]/T-wave changes noted as reviewed by me. Laboratory evaluation was remarkable for leukocytosis of 16.6, CO2 37, BUN 29, and lactic acid 1.6. The patient was hypoxic in the emergency room with SpO2 94% on 3 L is a cannula oxygen. Patient was seen and examined. No acute events overnight. Patient reports continued shortness of breath, slightly improved since admission. States that she is 50% better. She denies any chest pain or palpitations. No lightheadedness. No nausea or vomiting. No fever or chills. General: non toxic, no distress, appears at stated age, obese Derm: no unusual rashes/lesions, warm Head: atraumatic, normocephalic, symmetric Eyes: EOMI, no lid lag, anicteric sclera ENT: Nose and ears atraumatic Neck: No cervical lymphadenopathy, trachea midline, supple Mouth: no lip lesion, mucus membranes moist Cardiovascular: S1S2 reg, no murmur, no edema Lungs: Poor air entry bilaterally with wheezing noted, no rhonchi, no rales, no accessory muscle use Abdominal: soft, nontender to palpation, no guarding Ext: muscle strength 5 out of 5 in all 4 extremities grossly, no gross muscle atrophy, no contractures, Neuro: no gross focal neuro deficits Psych: Alert, oriented, appropriate affect #Acute COPD exacerbation #Acute on chronic hypoxic respiratory failure #Respiratory acidosis with secondary metabolic alkalosis -Continue with Solu-Medrol -DuoNeb's scheduled and as needed for shortness of breath and wheezing. -Continue with azithromycin -Supplemental oxygen to maintain O2 saturation greater than 92%. -Pulmonology consulted -Continue Pulmicort, formoterol Chronic conditions: Hypertension, ADHD, rheumatoid arthritis DVT prophylaxis: Heparin Discussed with: Patient Anticipated discharge: 1-[address]: Home Objective - Vital Signs Vital signs: Vital Signs Temp 98.5 F 08/26/22 08:00 Pulse 100 08/26/22 09:26 Resp 18 08/26/22 08:00 BP 145/68 08/26/22 08:00 Pulse Ox 95 08/26/22 08:00 FiO2 35 08/26/22 03:09 Intake & Output 08/25/22 08/26/22 08/26/22 18:59 06:59 18:59 Other: # Voids 3 3 - Labs CBC & Chem 7: 08/26/22 06:46 08/26/22 06:46 Labs: Abnormal Lab Results - Last 24 Hours (Table) 08/26/22 08/26/22 Range/Units 06:46 06:46 WBC 17.2 H (3.8-10.6) k/uL Chloride 95 L (98-107) mmol/L Carbon Dioxide 34 H (22-30) mmol/L BUN 30 H (7-17) mg/dL Glucose 149 H (74-99) mg/dL
--- NOTE | 2022-08-26 12:51 | P.PN ---
Subjective Progress Note Date: 08/26/22 This is a very pleasant 67-year-old female patient with a history of hypertension, rheumatoid arthritis, chronic lower extremity edema, attention deficit hyperactivity disorder, chronic back pain, COVID-19 pneumonia, chronic hypoxemic and hypercapnic respiratory failure utilizing oxygen at 4 L at home. She also has a noninvasive positive pressure ventilatory machine for nighttime. She is also noted to have a left upper lobe lung lesion measuring 18 x 13 mm. Based on these findings she was deactivated from the transplant list. Follow-up CAT scan with to be performed in September of this year. She follows with Dr. Goodman in our office for the same. She presented here to the emergency room yesterday with complaints of increasing shortness of breath, cough congestion chest tightness and wheezing. Chest x-ray shows no acute pulmonary process. White count 16.6. Hemoglobin 13.2. Sodium 137. Potassium 4.7. BUN 29. Creatinine 0.68. AST 24. ALT 17. She's been initiated on DuoNeb inhalations, IV Solu-Medrol. Heparin for DVT prophylaxis. Empiric antibiotics in the form of azithromycin. Again today in consultation on the regular medical floor. She is awake and alert in no acute distress. She was on BiPAP last evening 10/5 and 30% FiO2. Currently on 3 L nasal cannula. She is feeling a bit better today compared to yesterday. Not quite back to her baseline. The patient is seen today 08/26/2022 in follow-up on the regular medical floor. She is awake and alert in no acute distress. She is maintaining O2 saturations in the 90s on 3 L/m per nasal cannula. She did utilize BiPAP last night. 10/5 and 30% FiO2. She is improved today compared to yesterday. Still not quite back to her baseline. Still somewhat bronchospastic and wheezy. White count 17.2. Hemoglobin 12.9. Sodium 139. Potassium 4.5. BUN 30. Creatinine 0.60. She is continued on DuoNeb inhalations, Pulmicort and Perforomist inhalations, IV Solu-Medrol, Singulair, theophylline. Heparin for DVT prophylaxis. Remains on oral diuretics. Remains on empiric antibiotics. Objective - Vital Signs Vital signs: Vital Signs Temp 98.5 F 08/26/22 08:00 Pulse 104 H 08/26/22 12:12 Resp 18 08/26/22 08:00 BP 145/68 08/26/22 08:00 Pulse Ox 95 08/26/22 08:00 FiO2 35 08/26/22 03:09 Intake & Output 08/25/22 08/26/22 08/26/22 18:59 06:59 18:59 Other: # Voids 3 3 - Exam GENERAL EXAM: Alert, obese, pleasant 67-year-old female, on 3 L nasal cannula, comfortable in no apparent distress. HEAD: Normocephalic. EYES: Normal reaction of pupils, equal size. NOSE: Clear with pink turbinates. THROAT: No erythema or exudates. NECK: No masses, no JVD. CHEST: No chest wall deformity. LUNGS: Equal air entry with bilateral end expiratory wheeze, diminished. CVS: S1 and S2 normal with no audible murmur, regular rhythm. ABDOMEN: No hepatosplenomegaly, normal bowel sounds, no guarding or rigidity. SPINE: No scoliosis or deformity SKIN: No rashes CENTRAL NERVOUS SYSTEM: No focal deficits, tone is normal in all 4 extremities. EXTREMITIES: There is no peripheral edema. No clubbing, no cyanosis. Peripheral pulses are intact. - Labs CBC & Chem 7: 08/26/22 06:46 08/26/22 06:46 Labs: Abnormal Lab Results - Last 24 Hours (Table) 08/26/22 08/26/22 Range/Units 06:46 06:46 WBC 17.2 H (3.8-10.6) k/uL Chloride 95 L (98-107) mmol/L Carbon Dioxide 34 H (22-30) mmol/L BUN 30 H (7-17) mg/dL Glucose 149 H (74-99) mg/dL Assessment and Plan Assessment: Acute exacerbation of chronic obstructive pulmonary disease, no evidence of pneumonia. Maintained on prednisone 5 mg daily Acute on chronic type toxemic respiratory failure secondary to above, does have home oxygen at 4 L/m per nasal cannula Acute on chronic hypercapnic respiratory failure secondary to above, on BiPAP 10/03 in the outpatient setting History of a left upper lobe lesion measuring 18 x 13 mm in size. Being followed in the outpatient setting History of CoVID in 19 pneumonia History of chronic lower extremity edema Hypertension Attention deficit hyperactivity disorder Rheumatoid arthritis Chronic back pain Former smoker Plan: The patient was seen and evaluated Labs and medications reviewed Continue bronchodilators Continue IV Solu-Medrol Empiric antibiotics in the form of azithromycin Titrate the FiO2 as tolerated Continue BiPAP during the evenings and throughout the day while napping We will continue to follow I have personally seen and examined the patient, performed the documentation and the assessment and plan as written. Number of minutes spent on the visit: 10.
[2022-08-26] MEDS: rOPINIRole HCL 4 MG TABLET PO SCH (20:29)
[2022-08-26] MEDS: AZITHROMYCIN 500 MG TAB PO SCH (20:29)
[2022-08-26] MEDS: MONTELUKAST 10 MG TAB PO SCH (20:29)
[2022-08-26] MEDS: THEOPHYLLINE 24 HOUR 400 MG CAP.ER.24H PO SCH (20:29)
[2022-08-26] MEDS: ACETAMINOPHEN TAB 325 MG TAB PO PRN (20:30)
[2022-08-26] MEDS: MELATONIN 5 MG TABLET PO SCH (20:30)
[2022-08-27] MEDS: IPRATROPIUM-ALBUTEROL 3 ML NEB INHALATION PRN (03:39)
[2022-08-27] MEDS: methylPREDNISolone SOD SUCCI 125 MG/2 ML VIAL IV SCH ×3 (06:02→17:11)
[2022-08-27] MEDS: PANTOPRAZOLE 40 MG TABLET PO SCH (06:03)
[2022-08-27] MEDS: BUDESONIDE 1 MG/2 ML NEBU INHALATION SCH ×2 (07:19→19:05)
[2022-08-27] MEDS: FORMOTEROL FUMARATE 20 MCG/2 ML NEBU INHALATION SCH ×2 (07:19→19:05)
[2022-08-27] MEDS: IPRATROPIUM-ALBUTEROL 3 ML NEB INHALATION SCH ×4 (07:19→19:05)
[2022-08-27] MEDS: VERAPAMIL SR 120 MG TABLET.ER PO SCH (07:43)
[2022-08-27] MEDS: DULoxetine HCL 30 MG CAPSULE.DR PO SCH (07:43)
[2022-08-27] MEDS: FUROSEMIDE 40 MG TAB PO SCH (07:43)
[2022-08-27] MEDS: LORATADINE 10 MG TAB PO SCH (07:44)
[2022-08-27] MEDS: HEPARIN SODIUM,PORCINE/PF 5,000 UNIT/0.5 ML SYRINGE SQ SCH ×2 (07:44→15:14)
--- NOTE | 2022-08-27 09:35 | P.PN ---
Subjective Progress Note Date: 08/27/22 Principal diagnosis: COPD exacerbation. This is a very pleasant 67-year-old female patient with a history of hypertension, rheumatoid arthritis, chronic lower extremity edema, attention deficit hyperactivity disorder, chronic back pain, COVID-19 pneumonia, chronic hypoxemic and hypercapnic respiratory failure utilizing oxygen at 4 L at home. She also has a noninvasive positive pressure ventilatory machine for nighttime. She is also noted to have a left upper lobe lung lesion measuring 18 x 13 mm. Based on these findings she was deactivated from the transplant list. Follow-up CAT scan with to be performed in September of this year. She follows with Dr. Goodman in our office for the same. She presented here to the emergency room yesterday with complaints of increasing shortness of breath, cough congestion chest tightness and wheezing. Chest x-ray shows no acute pulmonary process. White count 16.6. Hemoglobin 13.2. Sodium 137. Potassium 4.7. BUN 29. Creatinine 0.68. AST 24. ALT 17. She's been initiated on DuoNeb inhalations, IV Solu-Medrol. Heparin for DVT prophylaxis. Empiric antibiotics in the form of azithromycin. Again today in consultation on the regular medical floor. She is awake and alert in no acute distress. She was on BiPAP last evening 10/5 and 30% FiO2. Currently on 3 L nasal cannula. She is feeling a bit better today compared to yesterday. Not quite back to her baseline. The patient is seen today 08/26/2022 in follow-up on the regular medical floor. She is awake and alert in no acute distress. She is maintaining O2 saturations in the 90s on 3 L/m per nasal cannula. She did utilize BiPAP last night. 10/5 and 30% FiO2. She is improved today compared to yesterday. Still not quite back to her baseline. Still somewhat bronchospastic and wheezy. White count 17.2. Hemoglobin 12.9. Sodium 139. Potassium 4.5. BUN 30. Creatinine 0.60. She is continued on DuoNeb inhalations, Pulmicort and Perforomist inhalations, IV Solu-Medrol, Singulair, theophylline. Heparin for DVT prophylaxis. Remains on oral diuretics. Remains on empiric antibiotics. Progress note dated 08/27/2022. 67-year-old female well-known to our service. She has a history of severe end- stage COPD, with chronic hypoxemic respiratory failure. She was admitted with a COPD exacerbation. She's feeling a bit better today. Still quite wheezy. Coughing a bit. Not producing any phlegm. No chest pain or chest discomfort. She had a pretty uneventful night according to her. She continues on all appropriate medications. No new labs today. Labs from August 26 have been reviewed. Her admission chest x-ray showed no acute process. Objective - Vital Signs Vital signs: Vital Signs Temp 98.3 F 08/27/22 08:00 Pulse 101 H 08/27/22 08:00 Resp 20 08/27/22 08:00 BP 145/64 08/27/22 08:00 Pulse Ox 96 08/27/22 08:00 FiO2 30 08/27/22 03:39 Intake & Output 08/26/22 08/27/22 08/27/22 18:59 06:59 18:59 Intake Total 236 Balance 236 Intake: Oral 236 Other: # Voids 2 1 - Exam No acute distress, oriented 3. Currently on 3 L. HEENT examination is grossly unremarkable. The patient has a delong face from chronic corticosteroids. Neck supple. Full range of motion. No adenopathy thyromegaly or neck vein distention. Cardiovascular examination reveals regular rhythm rate. S1-S2 normal. No S3 or S4. No discernible murmur noted. Heart sounds are distant. Heart rate 100 bpm. Lungs reveal bilateral high-pitched expiratory wheezes. No rhonchi or crackles. Breath sounds are equal bilaterally but diminished throughout. Abdomen obese, but soft. Bowel sounds are noted. Extremities are intact. No cyanosis clubbing or edema. Skin is without rash or lesion. Neurologic examination is brief but nonfocal. - Labs CBC & Chem 7: 08/26/22 06:46 08/26/22 06:46 Assessment and Plan Assessment: Acute exacerbation of chronic obstructive pulmonary disease, no evidence of pneumonia. Maintained on prednisone 5 mg daily. Acute on chronic hypoxemic respiratory failure secondary to above, does have home oxygen at 4 L/m per nasal cannula. Acute on chronic hypercapnic respiratory failure secondary to above, on BiPAP 10/03 in the outpatient setting. History of a left upper lobe lesion measuring 18 x 13 mm in size. History of CoVID 19 pneumonia. History of chronic lower extremity edema. Hypertension. Attention deficit hyperactivity disorder. Rheumatoid arthritis. Chronic back pain. Former smoker. Plan: Plan dated 08/27/2022. The patient continues on albuterol sulfate and ipratropium bromide, as well as long-acting beta agonist, and inhaled corticosteroids. The patient's also receiving systemic corticosteroids. We will continue to follow, and make recommendations along the way. The patient's empirically on azithromycin. Prognosis is guarded. The patient does seem to be improving. Likely discharge in the next 24-48 hours. Time with Patient: Less than 30
--- NOTE | 2022-08-27 11:15 | P.PN ---
Subjective Progress Note Date: 08/27/22 The patient is a 67-year-old female with a PMH of COPD not on home oxygen who presents to the emergency room with complaints of gradually worsening shortness of breath. The patient reports her breathing has been worsening over the past 3-4 days, with somewhat increased cough productive of yellow-green phlegm, similar to baseline. Chest x-ray in the emergency room was unremarkable. EKG reveals sinus tachycardia at [address]/T-wave changes noted as reviewed by me. Laboratory evaluation was remarkable for leukocytosis of 16.6, CO2 37, BUN 29, and lactic acid 1.6. The patient was hypoxic in the emergency room with SpO2 94% on 3 L is a cannula oxygen. Patient was seen and examined. No acute events overnight. Patient reports continued shortness of breath, slightly improved since admission. She still complains of shortness of breath with exertion. She denies any chest pain or palpitations. No lightheadedness. No nausea or vomiting. No fever or chills. General: non toxic, no distress, appears at stated age, obese Derm: no unusual rashes/lesions, warm Head: atraumatic, normocephalic, symmetric Eyes: EOMI, no lid lag, anicteric sclera ENT: Nose and ears atraumatic Neck: No cervical lymphadenopathy, trachea midline, supple Mouth: no lip lesion, mucus membranes moist Cardiovascular: S1S2 reg, no murmur, no edema Lungs: Poor air entry bilaterally with wheezing noted, no rhonchi, no rales, no accessory muscle use Abdominal: soft, nontender to palpation, no guarding Ext: muscle strength 5 out of 5 in all 4 extremities grossly, no gross muscle atrophy, no contractures, Neuro: no gross focal neuro deficits Psych: Alert, oriented, appropriate affect #Acute COPD exacerbation #Acute on chronic hypoxic respiratory failure #Respiratory acidosis with secondary metabolic alkalosis -Continue with Solu-Medrol -DuoNeb's scheduled and as needed for shortness of breath and wheezing. -Continue with azithromycin -Supplemental oxygen to maintain O2 saturation greater than 92%. -Pulmonology consulted -Continue Pulmicort, formoterol Chronic conditions: Hypertension, ADHD, rheumatoid arthritis DVT prophylaxis: Heparin Discussed with: Patient Anticipated discharge: 1-[address]: Home Objective - Vital Signs Vital signs: Vital Signs Temp 98.3 F 08/27/22 08:00 Pulse 101 H 08/27/22 08:00 Resp 20 08/27/22 08:00 BP 145/64 08/27/22 08:00 Pulse Ox 96 08/27/22 08:00 FiO2 30 08/27/22 03:39 Intake & Output 08/26/22 08/27/22 08/27/22 18:59 06:59 18:59 Intake Total 236 Balance 236 Intake: Oral 236 Other: # Voids 2 1 - Labs CBC & Chem 7: 08/26/22 06:46 08/26/22 06:46
[2022-08-27] MEDS ORDERED: SODIUM CHLORIDE 0.65% NASAL SPRAY 44 ML BTL NASAL PRN (14:56)
[2022-08-27] MEDS ORDERED: BENZOCAINE/MENTHOL LOZENG 1 EACH LOZENGE MUCOUS MEM PRN (14:58)
[2022-08-27] MEDS: rOPINIRole HCL 4 MG TABLET PO SCH (19:48)
[2022-08-27] MEDS: MONTELUKAST 10 MG TAB PO SCH (19:48)
[2022-08-27] MEDS: THEOPHYLLINE 24 HOUR 400 MG CAP.ER.24H PO SCH (19:48)
[2022-08-27] MEDS: MELATONIN 5 MG TABLET PO SCH (19:48)
[2022-08-28] MEDS: HEPARIN SODIUM,PORCINE/PF 5,000 UNIT/0.5 ML SYRINGE SQ SCH ×3 (00:04→16:35)
[2022-08-28] MEDS: methylPREDNISolone SOD SUCCI 125 MG/2 ML VIAL IV SCH ×4 (00:04→17:51)
[2022-08-28] MEDS: PANTOPRAZOLE 40 MG TABLET PO SCH (06:35)
[2022-08-28] MEDS: FORMOTEROL FUMARATE 20 MCG/2 ML NEBU INHALATION SCH ×2 (07:35→18:56)
[2022-08-28] MEDS: IPRATROPIUM-ALBUTEROL 3 ML NEB INHALATION SCH ×4 (07:35→18:56)
[2022-08-28] MEDS: BUDESONIDE 1 MG/2 ML NEBU INHALATION SCH ×2 (07:35→18:56)
[2022-08-28] MEDS: LORATADINE 10 MG TAB PO SCH (09:07)
[2022-08-28] MEDS: VERAPAMIL SR 120 MG TABLET.ER PO SCH (09:07)
[2022-08-28] MEDS: DULoxetine HCL 30 MG CAPSULE.DR PO SCH (09:07)
[2022-08-28] MEDS: FUROSEMIDE 40 MG TAB PO SCH (09:07)
[2022-08-28] MEDS ORDERED: INFLUENZA VACC HIGH-DOSE (65+) 240 MCG/0.7 ML SYRINGE IM ONE (11:38)
[2022-08-28] MEDS ORDERED: RX INFO: IV CONTRAST WAS GIVEN 1 EACH MISC MISCELLANE PRN (15:16)
--- NOTE | 2022-08-28 15:35 | P.PN ---
Subjective Progress Note Date: 08/28/22 This is a very pleasant 67-year-old female patient with a history of hypertension, rheumatoid arthritis, chronic lower extremity edema, attention deficit hyperactivity disorder, chronic back pain, COVID-19 pneumonia, chronic hypoxemic and hypercapnic respiratory failure utilizing oxygen at 4 L at home. She also has a noninvasive positive pressure ventilatory machine for nighttime. She is also noted to have a left upper lobe lung lesion measuring 18 x 13 mm. Based on these findings she was deactivated from the transplant list. Follow-up CAT scan with to be performed in September of this year. She follows with Dr. Goodman in our office for the same. She presented here to the emergency room yesterday with complaints of increasing shortness of breath, cough congestion chest tightness and wheezing. Chest x-ray shows no acute pulmonary process. White count 16.6. Hemoglobin 13.2. Sodium 137. Potassium 4.7. BUN 29. Creatinine 0.68. AST 24. ALT 17. She's been initiated on DuoNeb inhalations, IV Solu-Medrol. Heparin for DVT prophylaxis. Empiric antibiotics in the form of azithromycin. Again today in consultation on the regular medical floor. She is awake and alert in no acute distress. She was on BiPAP last evening 10/5 and 30% FiO2. Currently on 3 L nasal cannula. She is feeling a bit better today compared to yesterday. Not quite back to her baseline. The patient is seen today 08/26/2022 in follow-up on the regular medical floor. She is awake and alert in no acute distress. She is maintaining O2 saturations in the 90s on 3 L/m per nasal cannula. She did utilize BiPAP last night. 10/5 and 30% FiO2. She is improved today compared to yesterday. Still not quite back to her baseline. Still somewhat bronchospastic and wheezy. White count 17.2. Hemoglobin 12.9. Sodium 139. Potassium 4.5. BUN 30. Creatinine 0.60. She is continued on DuoNeb inhalations, Pulmicort and Perforomist inhalations, IV Solu-Medrol, Singulair, theophylline. Heparin for DVT prophylaxis. Remains on oral diuretics. Remains on empiric antibiotics. Progress note dated 08/27/2022. 67-year-old female well-known to our service. She has a history of severe end- stage COPD, with chronic hypoxemic respiratory failure. She was admitted with a COPD exacerbation. She's feeling a bit better today. Still quite wheezy. Coughing a bit. Not producing any phlegm. No chest pain or chest discomfort. She had a pretty uneventful night according to her. She continues on all appr opriate medications. No new labs today. Labs from August 26 have been reviewed. Her admission chest x-ray showed no acute process. 08/28/2022, the patient still having some difficulty breathing. She remains on bronchodilators. She remains on IV Solu-Medrol. No chest pain. No signs of any CO2 narcosis. As mentioned earlier, the patient has been on the transplant list and she is currently off due to concerns of malignancy as the patient has had nodules. Following her Covid 19 infection. A follow-up CAT scan will be needed accordingly. She has chronic hypoxic/hypercapnic respiratory failure and the patient admitted on oxygen at 4 L at home. She has RA, ADD, chronic back pain, hypertension, and she is obese. Her body mass index is 32.1. She has been chronically steroid dependent and the patient has some cushingoid features also. No new labs from today. Objective - Vital Signs Vital signs: Vital Signs Temp 98.1 F 08/28/22 13:46 Pulse 106 H 08/28/22 13:46 Resp 18 08/28/22 13:46 BP 144/75 08/28/22 13:46 Pulse Ox 97 08/28/22 13:46 FiO2 30 08/28/22 03:11 Intake & Output 08/27/22 08/28/22 08/28/22 18:59 06:59 18:59 Intake Total 590 500 240 Balance 590 500 240 Intake: Oral 590 500 240 Other: Voiding Method Toilet # Voids 2 2 - Exam No acute distress, oriented 3. Currently on 4 L O2 nasal cannula HEENT examination is grossly unremarkable. The patient has a delong face from chronic corticosteroids. Neck supple. Full range of motion. No adenopathy thyromegaly or neck vein distention. Cardiac exam revealed the PMI to be normally situated and sized. The rhythm was regular and no extrasystoles were noted during several minutes of auscultation. The first and second heart sounds were normal and physiologic splitting of the second heart sound was noted. There were no murmurs, rubs, clicks, or gallops. Lungs reveal bilateral high-pitched expiratory wheezes. No rhonchi or crackles. Breath sounds are equal bilaterally but diminished throughout. Abdomen obese, but soft. Bowel sounds are noted. Extremities are intact. No cyanosis clubbing or edema. Skin is without rash or lesion. Neurologic examination is brief but nonfocal. - Labs CBC & Chem 7: 08/26/22 06:46 08/26/22 06:46 Assessment and Plan Plan: Assessment: Acute exacerbation of chronic obstructive pulmonary disease, no evidence of pneumonia. Maintained on prednisone 5 mg daily. Acute on chronic hypoxemic respiratory failure secondary to above, does have home oxygen at 4 L/m per nasal cannula. Acute on chronic hypercapnic respiratory failure secondary to above, on BiPAP 10/03 in the outpatient setting. History of a left upper lobe lesion measuring 18 x 13 mm in size. History of CoVID 19 pneumonia. History of chronic lower extremity edema. Hypertension. Attention deficit hyperactivity disorder. Rheumatoid arthritis. Chronic back pain. Former smoker. Plan: The patient will need a follow-up CAT scan of the chest with contrast to follow- up on the previous discomfort pulmonary nodules, her last CAT scan of the chest was in 2020 Keep the IV Solu-Medrol for another 24 hours Continue DuoNeb about treatments [id number] Continue theophylline Continue Lasix 40 mg by mouth daily We'll continue to follow. Not ready for discharge at.
--- NOTE | 2022-08-28 15:57 | P.PN ---
Subjective Progress Note Date: 08/28/22 The patient is a 67-year-old female with a PMH of COPD not on home oxygen who presents to the emergency room with complaints of gradually worsening shortness of breath. The patient reports her breathing has been worsening over the past 3-4 days, with somewhat increased cough productive of yellow-green phlegm, similar to baseline. Chest x-ray in the emergency room was unremarkable. EKG reveals sinus tachycardia at [address]/T-wave changes noted as reviewed by me. Laboratory evaluation was remarkable for leukocytosis of 16.6, CO2 37, BUN 29, and lactic acid 1.6. The patient was hypoxic in the emergency room with SpO2 94% on 3 L is a cannula oxygen. Patient was seen and examined. No acute events overnight. Patient reports continued shortness of breath, slightly improved since admission. She still complains of shortness of breath with exertion. She denies any chest pain or palpitations. No lightheadedness. No nausea or vomiting. No fever or chills. General: non toxic, no distress, appears at stated age, obese Derm: no unusual rashes/lesions, warm Head: atraumatic, normocephalic, symmetric Eyes: EOMI, no lid lag, anicteric sclera ENT: Nose and ears atraumatic Neck: No cervical lymphadenopathy, trachea midline, supple Mouth: no lip lesion, mucus membranes moist Cardiovascular: S1S2 reg, no murmur, no edema Lungs: Poor air entry bilaterally with wheezing noted, no rhonchi, no rales, no accessory muscle use Abdominal: soft, nontender to palpation, no guarding Ext: muscle strength 5 out of 5 in all 4 extremities grossly, no gross muscle atrophy, no contractures, Neuro: no gross focal neuro deficits Psych: Alert, oriented, appropriate affect #Acute COPD exacerbation #Acute on chronic hypoxic respiratory failure #Respiratory acidosis with secondary metabolic alkalosis -Continue with Solu-Medrol -DuoNeb's scheduled and as needed for shortness of breath and wheezing. -Continue with azithromycin -Supplemental oxygen to maintain O2 saturation greater than 92%. -Pulmonology consulted -CT chest ordered -Continue Pulmicort, formoterol Chronic conditions: Hypertension, ADHD, rheumatoid arthritis DVT prophylaxis: Heparin Discussed with: Patient Anticipated discharge: Tomorrow Anticipated discharge place: Home Objective - Vital Signs Vital signs: Vital Signs Temp 98.1 F 08/28/22 13:46 Pulse 80 08/28/22 15:28 Resp 18 08/28/22 13:46 BP 144/75 08/28/22 13:46 Pulse Ox 97 08/28/22 13:46 FiO2 30 08/28/22 03:11 Intake & Output 08/27/22 08/28/22 08/28/22 18:59 06:59 18:59 Intake Total 590 500 480 Balance 590 500 480 Intake: Oral 590 500 480 Other: Voiding Method Toilet # Voids 2 2 1 - Labs CBC & Chem 7: 08/26/22 06:46 08/26/22 06:46
--- NOTE | 2022-08-28 16:49 | CT ---
EXAMINATION TYPE: CT chest w con DATE OF EXAM: 08/28/2022 COMPARISON: 03/21/2022 HISTORY: hx of lung mass and COVID. CT DLP: 627 mGycm Automated exposure control for dose reduction was used. CONTRAST: Performed with IV Contrast, patient injected with 90 mL of Isovue 300. Images obtained from the thoracic inlet to the diaphragm with the IV contrast. There is some linear infiltrate and atelectasis in the posterior segment of the right upper lobe. No pleural effusion. No pericardial effusion. Heart size is normal. There are no hilar masses. There is no mediastinal adenopathy. There is anterior wedging of multiple mid thoracic vertebra up to 50% fractures appear old. There is a mild thoracic kyphotic increased curvature. The sternum is intact. No mediastinal adenopathy. There are no hilar masses. Thoracic aorta is atheromatous. No aneurysm or dissection. The upper abdominal soft tissues are intact. IMPRESSION: There is some chronic linear infiltrate and atelectasis in the posterior segment right upper lobe adj acent to the major fissure which appears stable compared to last exam. No increasing pulmonary densit y. Stable minimal 1.5 cm reticular infiltrate in the anterior segment left upper lobe.
[2022-08-28] MEDS: MELATONIN 5 MG TABLET PO SCH (19:40)
[2022-08-28] MEDS: rOPINIRole HCL 4 MG TABLET PO SCH (19:40)
[2022-08-28] MEDS: MONTELUKAST 10 MG TAB PO SCH (19:40)
[2022-08-28] MEDS: THEOPHYLLINE 24 HOUR 400 MG CAP.ER.24H PO SCH (19:40)
[2022-08-29] MEDS: methylPREDNISolone SOD SUCCI 125 MG/2 ML VIAL IV SCH ×3 (00:22→12:45)
[2022-08-29] MEDS: HEPARIN SODIUM,PORCINE/PF 5,000 UNIT/0.5 ML SYRINGE SQ SCH ×2 (00:22→09:11)
[2022-08-29] MEDS: PANTOPRAZOLE 40 MG TABLET PO SCH (06:35)
[2022-08-29] MEDS: FORMOTEROL FUMARATE 20 MCG/2 ML NEBU INHALATION SCH (07:34)
[2022-08-29] MEDS: IPRATROPIUM-ALBUTEROL 3 ML NEB INHALATION SCH ×2 (07:34→11:09)
[2022-08-29] MEDS: BUDESONIDE 1 MG/2 ML NEBU INHALATION SCH (07:34)
[2022-08-29] MEDS: FUROSEMIDE 40 MG TAB PO SCH (09:11)
[2022-08-29] MEDS: LORATADINE 10 MG TAB PO SCH (09:11)
[2022-08-29] MEDS: DULoxetine HCL 30 MG CAPSULE.DR PO SCH (09:11)
[2022-08-29] MEDS: VERAPAMIL SR 120 MG TABLET.ER PO SCH (09:11)
[2022-08-29] MEDS ORDERED: predniSONE 20 MG TAB PO STA (14:10)
--- NOTE | 2022-08-29 14:12 | P.PN ---
Subjective Progress Note Date: 08/29/22 This is a very pleasant 67-year-old female patient with a history of hypertension, rheumatoid arthritis, chronic lower extremity edema, attention deficit hyperactivity disorder, chronic back pain, COVID-19 pneumonia, chronic hypoxemic and hypercapnic respiratory failure utilizing oxygen at 4 L at home. She also has a noninvasive positive pressure ventilatory machine for nighttime. She is also noted to have a left upper lobe lung lesion measuring 18 x 13 mm. Based on these findings she was deactivated from the transplant list. Follow-up CAT scan with to be performed in September of this year. She follows with Dr. Goodman in our office for the same. She presented here to the emergency room yesterday with complaints of increasing shortness of breath, cough congestion chest tightness and wheezing. Chest x-ray shows no acute pulmonary process. White count 16.6. Hemoglobin 13.2. Sodium 137. Potassium 4.7. BUN 29. Creatinine 0.68. AST 24. ALT 17. She's been initiated on DuoNeb inhalations, IV Solu-Medrol. Heparin for DVT prophylaxis. Empiric antibiotics in the form of azithromycin. Again today in consultation on the regular medical floor. She is awake and alert in no acute distress. She was on BiPAP last evening 10/5 and 30% FiO2. Currently on 3 L nasal cannula. She is feeling a bit better today compared to yesterday. Not quite back to her baseline. The patient is seen today 08/26/2022 in follow-up on the regular medical floor. She is awake and alert in no acute distress. She is maintaining O2 saturations in the 90s on 3 L/m per nasal cannula. She did utilize BiPAP last night. 10/5 and 30% FiO2. She is improved today compared to yesterday. Still not quite back to her baseline. Still somewhat bronchospastic and wheezy. White count 17.2. Hemoglobin 12.9. Sodium 139. Potassium 4.5. BUN 30. Creatinine 0.60. She is continued on DuoNeb inhalations, Pulmicort and Perforomist inhalations, IV Solu-Medrol, Singulair, theophylline. Heparin for DVT prophylaxis. Remains on oral diuretics. Remains on empiric antibiotics. Progress note dated 08/27/2022. 67-year-old female well-known to our service. She has a history of severe end- stage COPD, with chronic hypoxemic respiratory failure. She was admitted with a COPD exacerbation. She's feeling a bit better today. Still quite wheezy. Coughing a bit. Not producing any phlegm. No chest pain or chest discomfort. She had a pretty uneventful night according to her. She continues on all appr opriate medications. No new labs today. Labs from August 26 have been reviewed. Her admission chest x-ray showed no acute process. 08/28/2022, the patient still having some difficulty breathing. She remains on bronchodilators. She remains on IV Solu-Medrol. No chest pain. No signs of any CO2 narcosis. As mentioned earlier, the patient has been on the transplant list and she is currently off due to concerns of malignancy as the patient has had nodules. Following her Covid 19 infection. A follow-up CAT scan will be needed accordingly. She has chronic hypoxic/hypercapnic respiratory failure and the patient admitted on oxygen at 4 L at home. She has RA, ADD, chronic back pain, hypertension, and she is obese. Her body mass index is 32.1. She has been chronically steroid dependent and the patient has some cushingoid features also. No new labs from today. 08/29/2022, Estelle is gradually improving. She is feeling better. She is still getting short of breath while moving around and going back and forth to the bathroom. Her computed tomography scan of the chest was completed yesterday and it showed no evidence of any lung masses or tumors. There is no evidence of pneumonia either. As such, her findings on the CAT scan of the chest were essentially benign. She remains on oxygen at 4 L. This was dropped down to 3 L. She is on IV Solu-Medrol. She is on Avalide treatments with DuoNeb around the clock. The white cell count at 17.2 with hemoglobin 12.9. Sodium is at 139 with a BUN of 30 and a creatinine of 0.6. Objective - Vital Signs Vital signs: Vital Signs Temp 99.0 F 08/29/22 06:54 Pulse 112 H 08/29/22 11:16 Resp 18 08/29/22 06:54 BP 150/89 08/29/22 06:54 Pulse Ox 94 L 08/29/22 10:30 FiO2 30 08/29/22 03:17 Intake & Output 08/28/22 08/29/22 08/29/22 18:59 06:59 18:59 Intake Total 720 Balance 720 Intake: Oral 720 Other: Voiding Method Toilet # Voids 1 3 - Exam No acute distress, oriented 3. Currently on 4 L O2 nasal cannula HEENT examination is grossly unremarkable. The patient has a delong face from chronic corticosteroids. Neck supple. Full range of motion. No adenopathy thyromegaly or neck vein distention. Cardiac exam revealed the PMI to be normally situated and sized. The rhythm was regular and no extrasystoles were noted during several minutes of auscultation. The first and second heart sounds were normal and physiologic splitting of the second heart sound was noted. There were no murmurs, rubs, clicks, or gallops. Lungs reveal bilateral high-pitched expiratory wheezes. No rhonchi or crackles. Breath sounds are equal bilaterally but diminished throughout. Abdomen obese, but soft. Bowel sounds are noted. Extremities are intact. No cyanosis clubbing or edema. Skin is without rash or lesion. Neurologic examination is brief but nonfocal. - Labs CBC & Chem 7: 08/26/22 06:46 08/26/22 06:46 Assessment and Plan Plan: Assessment: Acute exacerbation of chronic obstructive pulmonary disease, no evidence of pneumonia. Maintained on prednisone 5 mg daily. Acute on chronic hypoxemic respiratory failure secondary to above, does have home oxygen at 3 L/m per nasal cannula. Acute on chronic hypercapnic respiratory failure secondary to above, on BiPAP 10/03 in the outpatient setting. History of a left upper lobe lesion measuring 18 x 13 mm in size. Unchanged based on a follow-up CAT scan of the chest and there is no evidence of any malignancy History of CoVID 19 pneumonia. History of chronic lower extremity edema. Hypertension. Attention deficit hyperactivity disorder. Rheumatoid arthritis. Chronic back pain. Former smoker. Plan: The patient was taken off the IV Solu-Medrol and be given a dose of 60 mg prednisone by mouth and as of tomorrow she can go on a prednisone burst taper starting with 40 mg to be tapered by 10 mg every 4 days Resume mobility and activity Continue DuoNeb about treatments [id number] Patient is on a combination of Perforomist and budesonide unless she misses twice a day and she can continue this as an outpatient basis Continue theophylline Continue Lasix 40 mg by mouth daily We'll continue to follow. Discharged either today or tomorrow morning
[2022-08-29 14:25] VITALS: BP 165/67; PULSE 100; RESP 24; TEMP 98
--- NOTE | 2022-08-29 15:21 | P.DS ---
Providers Date of admission: 08/25/22 12:37 Expected date of discharge: 08/29/22 Attending physician: Dionna Rene MD Consults: 08/24/22 20:38 Consult Physician Routine Consulting Provider: Jose Elias Goodman Consult Reason/Comments: copd Do you want consulting provider notified?: Yes Primary care physician: Stated None Hospital Course: Discharge Diagnosis: COPD with acute exacerbation Acute on chronic hypoxic and hypercarbic respiratory failure Hospital Course: Patient is a very pleasant 67-year-old female with a past medical history of COPD home oxygen dependent on 3 L. she presented to the emergency department with a chief complaint of worsening shortness of breath on 08/24/22. she was found to have leukocytosis with a WBC count of 16.6 and hypercarbia with carbon dioxide of 37. Lactic acid was normal at 1.6 and labs otherwise showing no significant abnormalities.an EKG was completed showing sinus tachycardia at 108 bpm with no noted T wave or ST abnormality showing no signs of acute ischemia. Chest x-ray was completed negative for acute cardiopulmonary process. Patient was admitted under our services with consultation to pulmonology. Patient was placed on IV steroids along with scheduled and as needed breathing treatments. She was provided with supplemental oxygen. On 08/28/22 CT chest was completed revealing chronic linear infiltrates and atelectasis which was reported to appear stable compared to previous exam completed on 03/21/22. patient's condition improved throughout hospitalization. Patient did continue to have mild tachycardia with exertion and upon ambulating to and from restroom heart rate did climb as high as the 123 but quickly rebounded back to normal rate of 80s at rest.patient maintain SpO2 greater than 90% with ambulation and at rest with baseline home oxygen of 3 L. Patient is medically stable for discharge at this time and discussed with patient she will need to be discharged home with COPD Navigator program. Patient medically stable for discharge and to follow up outpatient with PCP in 3 days and pulmonology in one week. Physical exam: Patient seen and examined at bedside. Vital signs reviewed and stable. General: Nontoxic, no distress and appears stated age. Derm: Skin warm and dry, normal coloration for ethnicity. Head: Atraumatic, normocephalic and symmetric. Eyes: EOMs intact, no lid lag, and anicteric sclera Mouth: no lip lesions, mucus membranes moist Cardiovascular: regular rate and rhythm with normal S1S2, no murmur, positive posterior tibial pulses bilaterally, and cap refill < 2 seconds. Lungs: Respirations even, regular, and unlabored on room air. Lungs with equal and good air movement, soft diffuse expiratory wheezes bilaterally. No rhonchi, rales, crackles, or accessory muscle usage. Abdominal: soft, nontender to palpation, no guarding, no appreciable organomegaly Ext: ROM intact. No gross muscle atrophy, no edema, no contractures Neuro: Speech clear, face symmetrical and CN II-XII grossly intact with no noted focal neuro deficits Psych: Alert and oriented to person, place, time, and situation. Appropriate and pleasant affect. A total of 31 minutes of time were spent preparing this complex discharge summary. Pt was discharged on 08/29/22 at 9:51 AM. Patient Condition at Discharge: Stable Plan - Discharge Summary New Discharge Prescriptions: New predniSONE See Taper PO DIRECTED 12 Days #20 tab Continue Pantoprazole Sodium [Protonix] 40 mg PO DAILY DULoxetine HCL [Cymbalta] 30 mg PO DAILY Montelukast [Singulair] 10 mg PO HS Furosemide [Lasix] 40 mg PO DAILY #30 tablet Formoterol Fumarate [Perforomist] 20 mcg INHALATION RT-BID #30 ml Meloxicam 15 mg PO DAILY Multivit-Min/Iron/Folic/Lutein [Centrum Silver Women Tablet] 1 tab PO DAILY Albuterol Sulfate [Ventolin HFA] 2 puff INHALATION RT-Q6H PRN PRN Reason: Shortness Of Breath Melatonin 5 mg PO HS PRN PRN Reason: SLEEP Ipratropium-Albuterol Nebulize [Duoneb 0.5 mg-3 mg/3 ml Soln] 3 ml INHALATION RT-QID PRN PRN Reason: Shortness Of Breath Ferrous Sulfate [Iron (65 MG Elemental)] 325 mg PO DAILY Magnesium Oxide [Mag-Ox] 200 mg PO DAILY Potassium Chloride [Klor-Con 20] 20 meq PO DAILY Verapamil HCl [Verapamil ER] 120 mg PO DAILY predniSONE 5 mg PO DAILY Budesonide [Pulmicort] 1 mg INHALATION RT-BID Theophylline Anhydrous [Theophylline] 200 mg PO BID Cholecalciferol [Vitamin D3 (25 Mcg = 1000 Iu)] 50 mcg PO DAILY rOPINIRole HCL [Requip] 4 mg PO HS Cetirizine HCl 10 mg PO DAILY Albuterol Sulfate [Ventolin HFA] 2 puff INHALATION RT-Q6H PRN PRN Reason: Shortness Of Breath Discharge Medication List Pantoprazole Sodium [Protonix] 40 mg PO DAILY 12/30/20 [History] DULoxetine HCL [Cymbalta] 30 mg PO DAILY 01/15/21 [History] Montelukast [Singulair] 10 mg PO HS 02/19/21 [History] Ipratropium-Albuterol Nebulize [Duoneb 0.5 mg-3 mg/3 ml Soln] 3 ml INHALATION RT-QID PRN 05/22/21 [History] Furosemide [Lasix] 40 mg PO DAILY #30 tablet 06/10/21 [Rx] Ferrous Sulfate [Iron (65 MG Elemental)] 325 mg PO DAILY 07/04/21 [History] Formoterol Fumarate [Perforomist] 20 mcg INHALATION RT-BID #30 ml 07/06/21 [Rx] Magnesium Oxide [Mag-Ox] 200 mg PO DAILY 07/14/21 [History] Potassium Chloride [Klor-Con 20] 20 meq PO DAILY 07/14/21 [History] Budesonide [Pulmicort] 1 mg INHALATION RT-BID 08/05/21 [History] Meloxicam 15 mg PO DAILY 08/05/21 [History] Verapamil HCl [Verapamil ER] 120 mg PO DAILY 08/05/21 [History] predniSONE 5 mg PO DAILY 08/05/21 [History] Theophylline Anhydrous [Theophylline] 200 mg PO BID 09/01/21 [History] Albuterol Sulfate [Ventolin HFA] 2 puff INHALATION RT-Q6H PRN 04/20/22 [History] Cetirizine HCl 10 mg PO DAILY 04/20/22 [History] Cholecalciferol [Vitamin D3 (25 Mcg = 1000 Iu)] 50 mcg PO DAILY 04/20/22 [History] Melatonin 5 mg PO HS PRN 04/20/22 [History] Multivit-Min/Iron/Folic/Lutein [Centrum Silver Women Tablet] 1 tab PO DAILY 04/20/22 [History] rOPINIRole HCL [Requip] 4 mg PO HS 04/20/22 [History] Albuterol Sulfate [Ventolin HFA] 2 puff INHALATION RT-Q6H PRN 08/24/22 [History] predniSONE See Taper PO DIRECTED 12 Days #20 tab 08/29/22 [Rx] Follow up Appointment(s)/Referral(s): Nathanael Mckeon MD [REFERRING] - 3 Days (PLEASE CALL AND SCHEDULE APPOINTMENT) Jose Elias Goodman MD [STAFF PHYSICIAN] - 09/06/22 2:15 pm Patient Instructions/Handouts: Prednisone (By mouth), COPD (Chronic Obstructive Pulmonary Disease) (DC), Chronic Respiratory Failure (DC) Activity/Diet/Wound Care/Special Instructions: Activity: As tolerated. Take breaks as needed. Diet: Heart healthy and carb consistent diet. Avoid salts, or foods with hidden salts such as canned or boxed foods and frozen dinners. Extra salt makes your heart work harder and traps the fluid in your body for longer. Special Instructions: Take all of your medications as directed and remember to keep all of your doctor's appointments and follow-up as needed. Please take prednisone taper as prescribed and once completed you may resume your prednisone 5 mg daily. You are being discharged home with a COPD Navigator program. Thank you for allowing us to participate in your care, it was truly a pleasure having you for our patient!!! Discharge/Stand Alone Forms: Who Do I Call?, Community Resources, Help In The Home Discharge Disposition: HOME SELF-CARE
[2022-08-30] MEDS ORDERED: predniSONE 20 MG TAB PO SCH (09:00)
== END 2022-08-29 15:21 | disposition home or self-care (01) | DRG 190 ==
LOC: EC 18:57 → 6NMEDSUR 20:39 → OBSVTOIN 08-25 12:37
PROVIDERS: ADMIT Internal Medicine; ATTEND Internal Medicine
PROC: 5A09357 Assistance with Respiratory Ventilation, Less than 24 Consecutive Hours, Continuous Positive Airway Pressure (ICD-10-PCS; principal; 2022-08-25)
DX: J44.1 Chronic obstructive pulmonary disease with (acute) exacerbation (principal); J96.21 Acute and chronic respiratory failure with hypoxia; J96.22 Acute and chronic respiratory failure with hypercapnia; E87.4 Mixed disorder of acid-base balance; E24.2 Drug-induced Cushing's syndrome; I10 Essential (primary) hypertension; F90.9 Attention-deficit hyperactivity disorder, unspecified type; R91.1 Solitary pulmonary nodule; M54.9 Dorsalgia, unspecified; E66.9 Obesity, unspecified; F32.A Depression, unspecified; D72.829 Elevated white blood cell count, unspecified; R60.0 Localized edema; F41.9 Anxiety disorder, unspecified; M06.9 Rheumatoid arthritis, unspecified; H91.90 Unspecified hearing loss, unspecified ear; G89.29 Other chronic pain; G25.81 Restless legs syndrome; M85.80 Other specified disorders of bone density and structure, unspecified site; Z96.651 Presence of right artificial knee joint; Z68.32 Body mass index [BMI] 32.0-32.9, adult; Z86.718 Personal history of other venous thrombosis and embolism; Z76.82 Awaiting organ transplant status; Z99.81 Dependence on supplemental oxygen; Z97.4 Presence of external hearing-aid; Z87.891 Personal history of nicotine dependence; Z86.16 Personal history of COVID-19; Z85.44 Personal history of malignant neoplasm of other female genital organs; Z85.038 Personal history of other malignant neoplasm of large intestine; Z87.01 Personal history of pneumonia (recurrent); Z79.899 Other long term (current) drug therapy; Z79.52 Long term (current) use of systemic steroids; Z79.1 Long term (current) use of non-steroidal anti-inflammatories (NSAID); Z86.14 Personal history of Methicillin resistant Staphylococcus aureus infection
CPT/HCPCS: 36415; 71046; 71260; 80048; 80053; 82803; 83605; 83735; 85025; 85027; 85610; 85730; 90662; 93005; 94640; 94660; 94760; 99285

== ENCOUNTER 2022-09-18 14:25 | Inpatient (IN) | payer MEDICARE, OTHER ==
[2022-09-18] MEDS ORDERED: methylPREDNISolone SOD SUCCI 125 MG/2 ML VIAL IV STA (14:58)
[2022-09-18] MEDS ORDERED: IPRATROPIUM 0.5 MG/2.5 ML NEBU INHALATION STA (14:58)
[2022-09-18] MEDS ORDERED: ALBUTEROL NEBULIZED 2.5 MG/3 ML INHALATION STA (14:58)
[2022-09-18 15:35] LABS: ALT 24 U/L (4-34); AST 30 U/L (14-36); African American GFR (CKD) >90 (>60 ml/min/1.73 sqM); Albumin 3.5 g/dL (3.5-5.0); Alkaline Phosphatase 78 U/L (38-126); Blood Urea Nitrogen 21 mg/dL (7-17); Calcium 8.4 mg/dL (8.4-10.2); Chloride 95 mmol/L (98-107); Glucose 134 mg/dL (74-99); Magnesium 1.9 mg/dL (1.6-2.3); Non-African American GFR(CKD) 87 (>60 ml/min/1.73 sqM); Potassium 4.3 mmol/L (3.5-5.1); Sodium 136 mmol/L (137-145); Total Bilirubin 0.4 mg/dL (0.2-1.3); Total Protein 5.9 g/dL (6.3-8.2)
[2022-09-18 15:37] LABS: INR 0.9 (<1.2); Prothrombin Time 9.6 sec (9.0-12.0)
[2022-09-18 15:41] LABS: Anion Gap 3 mmol/L
[2022-09-18 15:47] LABS: Basophils % (A) 0 %; Eosinophils # (A) 0.3 k/uL (0-0.7); Eosinophils % (A) 2 %; HCT 36.5 % (34.0-46.0); HGB 11.7 gm/dL (11.4-16.0); Hypochromasia Slight; Lymphocytes # (A) 1.2 k/uL (1.0-4.8); Lymphocytes % (A) 9 %; MCH 31.3 pg (25.0-35.0); MCV 97.7 fL (80.0-100.0); Mean Platelet Volume 9.5; Monocytes # (A) 0.4 k/uL (0-1.0); Monocytes % (A) 3 %; Neutrophils # (A) 10.3 k/uL (1.3-7.7); Neutrophils % (A) 83 %; Platelet Count 264 k/uL (150-450); RBC 3.74 m/uL (3.80-5.40); RDW 14.2 % (11.5-15.5); WBC 12.4 k/uL (3.8-10.6)
[2022-09-18 15:54] LABS: Carbon Dioxide 38 mmol/L (22-30)
--- NOTE | 2022-09-18 16:32 | ED ---
General Adult HPI - General Chief complaint: Shortness of Breath Stated complaint: DOMI Time Seen by Provider: 09/18/22 14:36 Source: patient, RN notes reviewed, old records reviewed Mode of arrival: ambulatory Limitations: no limitations - History of Present Illness Initial comments: This is a 67-year-old female presents emergency Department stating that she has COPD and her difficulty breathing spinning getting worse over the last 6 days. Patient states she has a little bit of cough but nothing significant. Patient denies any sputum production. Patient denies any fever chills. Patient denies abdominal pain patient denies nausea vomiting diarrhea per patient denies chest pain or palpitations. Patient denies any lightheadedness or dizziness. Patient so complaint is difficulty breathing. Patient denies any swelling to legs or calf tenderness. Patient states been taking her breathing treatments but it hasn't been helping. - Related Data Home Medications Medication Instructions Recorded Confirmed Pantoprazole Sodium [Protonix] 40 mg PO DAILY 12/30/20 08/24/22 DULoxetine HCL [Cymbalta] 30 mg PO DAILY 01/15/21 08/24/22 Montelukast [Singulair] 10 mg PO HS 02/19/21 08/24/22 Ipratropium-Albuterol Nebulize 3 ml INHALATION RT-QID PRN 05/22/21 08/24/22 [Duoneb 0.5 mg-3 mg/3 ml Soln] Ferrous Sulfate [Iron (65 MG 325 mg PO DAILY 07/04/21 08/24/22 Elemental)] Magnesium Oxide [Mag-Ox] 200 mg PO DAILY 07/14/21 08/24/22 Potassium Chloride [Klor-Con 20] 20 meq PO DAILY 07/14/21 08/24/22 Budesonide [Pulmicort] 1 mg INHALATION RT-BID 08/05/21 08/24/22 Meloxicam 15 mg PO DAILY 08/05/21 08/24/22 Verapamil HCl [Verapamil ER] 120 mg PO DAILY 08/05/21 08/24/22 predniSONE 5 mg PO DAILY 08/05/21 08/24/22 Theophylline Anhydrous 200 mg PO BID 09/01/21 08/24/22 [Theophylline] Albuterol Sulfate [Ventolin HFA] 2 puff INHALATION RT-Q6H PRN 04/20/22 08/24/22 Cetirizine HCl 10 mg PO DAILY 04/20/22 08/24/22 Cholecalciferol [Vitamin D3 (25 50 mcg PO DAILY 04/20/22 08/24/22 Mcg = 1000 Iu)] Melatonin 5 mg PO HS PRN 04/20/22 08/24/22 Multivit-Min/Iron/Folic/Lutein 1 tab PO DAILY 04/20/22 08/24/22 [Centrum Silver Women Tablet] rOPINIRole HCL [Requip] 4 mg PO HS 04/20/22 08/24/22 Albuterol Sulfate [Ventolin HFA] 2 puff INHALATION RT-Q6H PRN 08/24/22 08/24/22 Previous Rx's Medication Instructions Recorded Furosemide [Lasix] 40 mg PO DAILY #30 tablet 06/10/21 Formoterol Fumarate [Perforomist] 20 mcg INHALATION RT-BID #30 ml 07/06/21 predniSONE See Taper PO DIRECTED 12 Days 08/29/22 #20 tab Allergies Allergy/AdvReac Type Severity Reaction Status Date / Time infliximab [From Remicade] Allergy Dyspnea/HIV Verified 09/18/22 14:31 ES propoxyphene [From Darvon] Allergy Rash/Hives Verified 09/18/22 14:31 adhesive tape AdvReac "is hard Verified 09/18/22 14:31 on skin" Review of Systems ROS Statement: Those systems with pertinent positive or pertinent negative responses have been documented in the HPI. ROS Other: All systems not noted in ROS Statement are negative. Past Medical History Past Medical History: Cancer, COPD, Deep Vein Thrombosis (DVT), Hearing Disorder / Deafness, Hypertension, Pneumonia, Rheumatoid Arthritis (RA) Additional Past Medical History / Comment(s): Bilateral hearing aid use. Colitis, Osteopenia, hx cancer of appendix, uses oxygen 3L continuous, chronic back pain, restless leg. 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 Hx Covid 01/16. History of Any Multi-Drug Resistant Organisms: MRSA Date of last positivie culture/infection: february 2021 MDRO Source:: urine Past Surgical History: Appendectomy, Bowel Resection, Hysterectomy, Joint Replacement, Orthopedic Surgery Additional Past Surgical History / Comment(s): Right knee replacement, EGD/colonoscopy, lasik eye surgery, right colectomy, colonoscopy 2016, pain procedure at [facility] with Dr Ty [place] with unilateral oophorectomy 1983, partial vulvectomy 2000, Kyphoplasty. Past Anesthesia/Blood Transfusion Reactions: No Reported Reaction Additional Past Anesthesia/Blood Transfusion Reaction / Comment(s): States is not supposed to have general anesthesia. "Cannot have tube in throat." Past Psychological History: ADD/ADHD, Anxiety, Depression Smoking Status: Former smoker - Past Family History Father Family Medical History: Cancer, COPD Additional Family Medical History / Comment(s): COLON cancer. Mother Family Medical History: Cancer Additional Family Medical History / Comment(s): ESOPHAGUS cancer. Sister(s) Family Medical History: Cancer Additional Family Medical History / Comment(s): CERVICAL cancer, basal cell cancer. General Exam - General Exam Comments Initial Comments: GENERAL: Patient is well-developed and well-nourished. Patient is nontoxic and well- hydrated and is in mild distress. ENT: Neck is soft and supple. No significant lymphadenopathy is noted. Oropharynx is clear. Moist mucous membranes. Neck has full range of motion without eliciting any pain. EYES: The sclera were anicteric and conjunctiva were pink and moist. Extraocular movements were intact and pupils were equal round and reactive to light. Eyelids were unremarkable. PULMONARY: Diminished breath sounds with very wheezing diffusely CARDIOVASCULAR: There is a regular rate and rhythm without any murmurs gallops or rubs. ABDOMEN: Soft and nontender with normal bowel sounds. SKIN: Skin is clear with no lesions or rashes and otherwise unremarkable. NEUROLOGIC: Patient is alert and oriented x3. Cranial nerves II through XII are grossly in tact. Motor and sensory are also intact. Normal speech, volume and content. Symmetrical smile. MUSCULOSKELETAL: Normal extremities with adequate strength and full range of motion. LYMPHATICS: No significant lymphadenopathy is noted PSYCHIATRIC: Normal psychiatric evaluation. Limitations: no limitations Course Vital Signs 09/18/22 09/18/22 09/18/22 14:28 16:04 16:20 Temperature 97.3 F L Pulse Rate 91 92 94 Respiratory 26 H 22 20 Rate Blood Pressure 124/74 O2 Sat by Pulse 78 L Oximetry Medical Decision Making - Medical Decision Making Patient's EKG was interpreted by me. EKG shows sinus rhythm with frequent PACs at 95 bpm MO interval 144 QRS is 75 QT interval 323 QTC is 376. Patient's EKG shows no ST segment elevation or depression. Patient's chest x-ray was interpreted by me. Chest x-ray shows no acute abnormality. Patient received multiple breathing treatments in the emergency department as well as steroids. Patient continued to wheeze diffusely she did state she felt a little better. Patient's oxygenation was down into the upper 70s initially. I spoke with the sound physician's and he agreed to admit the patient admitted the patient wrote admitting orders. I continue breathing treatments steroids on the floor. - Lab Data Result diagrams: 09/18/22 15:06 09/18/22 15:06 Lab Results 09/18/22 09/18/22 09/18/22 Range/Units 15:06 15:06 15:06 WBC 12.4 H (3.8-10.6) k/uL RBC 3.74 L (3.80-5.40) m/uL Hgb 11.7 (11.4-16.0) gm/dL Hct 36.5 (34.0-46.0) % MCV 97.7 (80.0-100.0) fL MCH 31.3 (25.0-35.0) pg MCHC 32.0 (31.0-37.0) g/dL RDW 14.2 (11.5-15.5) % Plt Count 264 (150-450) k/uL MPV 9.5 Neutrophils % 83 % Lymphocytes % 9 % Monocytes % 3 % Eosinophils % 2 % Basophils % 0 % Neutrophils # 10.3 H (1.3-7.7) k/uL Lymphocytes # 1.2 (1.0-4.8) k/uL Monocytes # 0.4 (0-1.0) k/uL Eosinophils # 0.3 (0-0.7) k/uL Basophils # 0.0 (0-0.2) k/uL Hypochromasia Slight PT 9.6 (9.0-12.0) sec INR 0.9 (<1.2) APTT 23.0 (22.0-30.0) sec Sodium 136 L (137-145) mmol/L Potassium 4.3 (3.5-5.1) mmol/L Chloride 95 L (98-107) mmol/L Carbon Dioxide 38 H (22-30) mmol/L Anion Gap 3 mmol/L BUN 21 H (7-17) mg/dL Creatinine 0.72 (0.52-1.04) mg/dL Est GFR (CKD-EPI)AfAm >90 (>60 ml/min/1.73 sqM) Est GFR (CKD-EPI)NonAf 87 (>60 ml/min/1.73 sqM) Glucose 134 H (74-99) mg/dL Plasma Lactic Acid Osmani (0.7-2.0) mmol/L Calcium 8.4 (8.4-10.2) mg/dL Magnesium 1.9 (1.6-2.3) mg/dL Total Bilirubin 0.4 (0.2-1.3) mg/dL AST 30 (14-36) U/L ALT 24 (4-34) U/L Alkaline Phosphatase 78 (38-126) U/L Troponin I (0.000-0.034) ng/mL Total Protein 5.9 L (6.3-8.2) g/dL Albumin 3.5 (3.5-5.0) g/dL 09/18/22 09/18/22 Range/Units 15:06 15:06 WBC (3.8-10.6) k/uL RBC (3.80-5.40) m/uL Hgb (11.4-16.0) gm/dL Hct (34.0-46.0) % MCV (80.0-100.0) fL MCH (25.0-35.0) pg MCHC (31.0-37.0) g/dL RDW (11.5-15.5) % Plt Count (150-450) k/uL MPV Neutrophils % % Lymphocytes % % Monocytes % % Eosinophils % % Basophils % % Neutrophils # (1.3-7.7) k/uL Lymphocytes # (1.0-4.8) k/uL Monocytes # (0-1.0) k/uL Eosinophils # (0-0.7) k/uL Basophils # (0-0.2) k/uL Hypochromasia PT (9.0-12.0) sec INR (<1.2) APTT (22.0-30.0) sec Sodium (137-145) mmol/L Potassium (3.5-5.1) mmol/L Chloride (98-107) mmol/L Carbon Dioxide (22-30) mmol/L Anion Gap mmol/L BUN (7-17) mg/dL Creatinine (0.52-1.04) mg/dL Est GFR (CKD-EPI)AfAm (>60 ml/min/1.73 sqM) Est GFR (CKD-EPI)NonAf (>60 ml/min/1.73 sqM) Glucose (74-99) mg/dL Plasma Lactic Acid Osmani 1.6 (0.7-2.0) mmol/L Calcium (8.4-10.2) mg/dL Magnesium (1.6-2.3) mg/dL Total Bilirubin (0.2-1.3) mg/dL AST (14-36) U/L ALT (4-34) U/L Alkaline Phosphatase (38-126) U/L Troponin I <0.012 (0.000-0.034) ng/mL Total Protein (6.3-8.2) g/dL Albumin (3.5-5.0) g/dL Critical Care Time Critical Care Time: Yes Total Critical Care Time: 35 Disposition Clinical Impression: Acute exacerbation of chronic obstructive airways disease Disposition: ADMITTED IP TO THIS HOSP Referrals: Nathanael Mckeon MD [Primary Care Provider] - 1-2 days Time of Disposition: 17:18
--- NOTE | 2022-09-18 16:52 | XR ---
EXAMINATION TYPE: XR chest 2V DATE OF EXAM: 09/18/2022 COMPARISON: NONE HISTORY: Difficulty breathing TECHNIQUE: FINDINGS: There is no heart failure nor confluent pneumonic infiltrate. Costophrenic angles are clear thoracic aorta is atheromatous. There is some linear density in the right upper lobe on the lateral view. There is osteopenia and anterior wedging of multiple thoracic vertebra up to 25% there is a mild thor acic kyphotic deformity. No pleural effusion IMPRESSION: There is some right upper lobe linear scarring or atelectasis without change. No heart fa ilure.
[2022-09-18] MEDS ORDERED: HYDROcodone/APAP 5-325MG 1 EACH TAB PO PRN (17:00)
[2022-09-18] MEDS ORDERED: ACETAMINOPHEN TAB 325 MG TAB PO PRN (17:00)
[2022-09-18] MEDS ORDERED: NALOXONE 0.4 MG/ML 1 ML VIAL IVP PRN ×2 (17:00→17:18)
--- NOTE | 2022-09-18 17:25 | P.HPIM ---
History of Present Illness H&P Date: 09/18/22 Chief Complaint: Dyspnea 67 year old woman with history of end stage COPD with chronic respriatory failure requiring 3L NC, hypertension, ADHD, chronic back pain, rheumatoid a rthritis presented for evaluation of dyspnea. Patient says that she is chronically dyspneic at baseline, however the last couple days she's noticed increasing gradually shortness of breath. She also reports a cough with minimal sputum production. She denies having any fevers, but reports chills. She has frequent readmissions for COPD exacerbation and has poor insight into extent of the disease as well as its progression. She reports some nausea, but no vomiting. She denies syncope, palpitations, chest pain, fevers, abdominal pain, constipation, diarrhea, numbness of extremities. She does report generalized weakness. In the emergency room, patient was afebrile, 78% on room air, required 4 L nasal cannula, breathing at rate of 26, pulse rate was 91, blood pressure 124/74. CBC shows mild leukocytosis at 12.4, otherwise unremarkable. Chemistries show sodium of 136, chloride 95, CO2 of 38, BUN 21, creatinine of 0.72. Liver function tests are unremarkable. Troponin was less than 0.012. Chest x-ray shows right upper lobe linear scarring without change when compared to prior. E KG shows sinus rhythm with frequent PACs. The patient was given Solu-Medrol, nebulizers, and patient was admitted to medicine for further evaluation and management. All Systems reviewed and pertinent positives and negatives noted in HPI, all other symptoms are negative Gen: in no apparent distress, resting comfortably in bed Eyes: PERRL, no scleral injection or icterus HENT: normocephalic, atraumatic, good hearing acuity, moist mucous membranes Neck: no tracheal deviation, full range of motion Resp: Impaired air exchange, breathing with no accessory muscle use, no tactile fremitus, poor air exchange, diffuse wheezing CVS: good distal perfusion x 4, no pitting edema, irregular rhythm with regular rate, no murmurs GI: soft, NTTP, ND, no hepatosplenomegaly : no suprapubic tenderness, no CVAT, patterson catheter not present MSK: no clubbing, no cyanosis, no noted contractures of extremities Skin: no noted rashes, petechiae; temperature of skin is appropriate Neuro: moving all extremities without signs of weakness, CN II-XII intact Psych: cooperative, euthymic mood, insight and judgment intact Labs and imaging as above Assessment/plan: Acute on chronic respiratory failure with hypoxemia and hypercarbia COPD exacerbation -Admit to inpatient, telemetry -oxygen as needed -Pulmonology consult -DuoNeb's -Steroids -Azithromycin -Palliative care consult Hypertension ADHD Chronic back pain Rheumatoid arthritis -Home medications reviewed and reconciled Patient is full code DVT prophylaxis with heparin 3 times a day Past Medical History Past Medical History: Cancer, COPD, Deep Vein Thrombosis (DVT), Hearing Disorder / Deafness, Hypertension, Pneumonia, Rheumatoid Arthritis (RA) Additional Past Medical History / Comment(s): Bilateral hearing aid use. Colitis, Osteopenia, hx cancer of appendix, uses oxygen 3L continuous, chronic back pain, restless leg. 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 Hx Covid 01/16. History of Any Multi-Drug Resistant Organisms: MRSA Date of last positivie culture/infection: february 2021 MDRO Source:: urine Past Surgical History: Appendectomy, Bowel Resection, Hysterectomy, Joint Replacement, Orthopedic Surgery Additional Past Surgical History / Comment(s): Right knee replacement, EGD/colonoscopy, lasik eye surgery, right colectomy, colonoscopy 2016, pain procedure at [facility] with Dr Ty, [facility] with unilateral oophorectomy 1983, partial vulvectomy 2000, Kyphoplasty. Past Anesthesia/Blood Transfusion Reactions: No Reported Reaction Additional Past Anesthesia/Blood Transfusion Reaction / Comment(s): States is not supposed to have general anesthesia. "Cannot have tube in throat." Past Psychological History: ADD/ADHD, Anxiety, Depression Smoking Status: Former smoker - Past Family History Father Family Medical History: Cancer, COPD Additional Family Medical History / Comment(s): COLON cancer. Mother Family Medical History: Cancer Additional Family Medical History / Comment(s): ESOPHAGUS cancer. Sister(s) Family Medical History: Cancer Additional Family Medical History / Comment(s): CERVICAL cancer, basal cell cancer. Medications and Allergies Home Medications Medication Instructions Recorded Confirmed Type Pantoprazole Sodium [Protonix] 40 mg PO DAILY 12/30/20 08/24/22 History DULoxetine HCL [Cymbalta] 30 mg PO DAILY 01/15/21 08/24/22 History Montelukast [Singulair] 10 mg PO HS 02/19/21 08/24/22 History Ipratropium-Albuterol Nebulize 3 ml INHALATION RT-QID PRN 05/22/21 08/24/22 History [Duoneb 0.5 mg-3 mg/3 ml Soln] Furosemide [Lasix] 40 mg PO DAILY #30 tablet 06/10/21 08/24/22 Rx Ferrous Sulfate [Iron (65 MG 325 mg PO DAILY 07/04/21 08/24/22 History Elemental)] Formoterol Fumarate [Perforomist] 20 mcg INHALATION RT-BID #30 ml 07/06/21 08/24/22 Rx Magnesium Oxide [Mag-Ox] 200 mg PO DAILY 07/14/21 08/24/22 History Potassium Chloride [Klor-Con 20] 20 meq PO DAILY 07/14/21 08/24/22 History Budesonide [Pulmicort] 1 mg INHALATION RT-BID 08/05/21 08/24/22 History Meloxicam 15 mg PO DAILY 08/05/21 08/24/22 History Verapamil HCl [Verapamil ER] 120 mg PO DAILY 08/05/21 08/24/22 History predniSONE 5 mg PO DAILY 08/05/21 08/24/22 History Theophylline Anhydrous 200 mg PO BID 09/01/21 08/24/22 History [Theophylline] Albuterol Sulfate [Ventolin HFA] 2 puff INHALATION RT-Q6H PRN 04/20/22 08/24/22 History Cetirizine HCl 10 mg PO DAILY 04/20/22 08/24/22 History Cholecalciferol [Vitamin D3 (25 50 mcg PO DAILY 04/20/22 08/24/22 History Mcg = 1000 Iu)] Melatonin 5 mg PO HS PRN 04/20/22 08/24/22 History Multivit-Min/Iron/Folic/Lutein 1 tab PO DAILY 04/20/22 08/24/22 History [Centrum Silver Women Tablet] rOPINIRole HCL [Requip] 4 mg PO HS 04/20/22 08/24/22 History Albuterol Sulfate [Ventolin HFA] 2 puff INHALATION RT-Q6H PRN 08/24/22 08/24/22 History predniSONE See Taper PO DIRECTED 12 Days 08/29/22 Rx #20 tab Allergies Allergy/AdvReac Type Severity Reaction Status Date / Time infliximab [From Remicade] Allergy Dyspnea/HIV Verified 09/18/22 14:31 ES propoxyphene [From Darvon] Allergy Rash/Hives Verified 09/18/22 14:31 adhesive tape AdvReac "is hard Verified 09/18/22 14:31 on skin" Physical Exam Osteopathic Statement: *. No significant issues noted on an osteopathic structural exam other than those noted in the History and Physical/Consult. Vitals: Vital Signs Temp Pulse Resp BP Pulse Ox 09/18/22 16:20 94 20 09/18/22 16:04 92 22 09/18/22 14:28 97.3 F L 91 26 H 124/74 78 L Intake and Output 09/18/22 09/18/22 09/18/22 06:59 14:59 22:59 Other: Weight 79.379 kg Results CBC & Chem 7: 09/18/22 15:06 09/18/22 15:06 Labs: Abnormal Lab Results - Last 24 Hours (Table) 09/18/22 09/18/22 Range/Units 15:06 15:06 WBC 12.4 H (3.8-10.6) k/uL RBC 3.74 L (3.80-5.40) m/uL Neutrophils # 10.3 H (1.3-7.7) k/uL Sodium 136 L (137-145) mmol/L Chloride 95 L (98-107) mmol/L Carbon Dioxide 38 H (22-30) mmol/L BUN 21 H (7-17) mg/dL Glucose 134 H (74-99) mg/dL Total Protein 5.9 L (6.3-8.2) g/dL
--- NOTE | 2022-09-18 18:15 | P.CNPUL ---
History of Present Illness Consult date: 09/18/22 Requesting physician: Frank Melvin Reason for consult: dyspnea, COPD Chief complaint: Shortness of breath, cough, congestion History of present illness: This is a very pleasant 67-year-old female patient with a history of hypertension, rheumatoid arthritis, chronic lower extremity edema, attention deficit hyperactivity disorder, chronic back pain, COVID-19 pneumonia, chronic hypoxemic and hypercapnic respiratory failure utilizing oxygen at 4 L at home. She also has a noninvasive positive pressure ventilatory machine for nighttime. She is also noted to have a left upper lobe lung lesion measuring 18 x 13 mm. Based on these findings she was deactivated from the transplant list. Follow-up CAT scan to be performed in September of this year. She follows with Dr. Goodman in our office for the same. She was last discharged for COPD exacerbation on 08/29/2022. She presented here to the emergency room earlier today with complaints of increasing shortness of breath, cough and congestion for the past 6 days. His x-ray reveals some right upper lobe linear scarring or atelectasis without change. No congestive heart failure. White count 12.4. Hemoglobin 11.7. Sodium 136. Potassium 4.3. BUN 21. Creatinine 0.72. Glucose 134. Troponin negative 1. She's been initiated on Symbicort, IV Solu-Medrol, DuoNeb inhalations. Empiric antibiotics in the form of azithromycin. She is seen today in consultation in the emergency department. She is currently sitting up on the stretcher. Awake and alert in no acute distress maintaining O2 saturations in the mid 90s on 3 L/m per nasal cannula. She's been afebrile. Review of Systems REVIEW OF SYSTEMS: CONSTITUTIONAL: Denies any recent significant weight loss or weight gain. EYES: Denies change in vision. EARS, NOSE, MOUTH, THROAT: Denies headaches, denies sore throat. CARDIOVASCULAR: Denies chest pain, palpitations or syncopal episodes. RESPIRATORY: Positive for shortness of breath, cough, congestion no hemoptysis. GASTROINTESTINAL: Denies change in appetite, denies abdominal pain GENITOURINARY: Denies hematuria, denies infections. MUSKULOSKELETAL: Denies pain, denies swelling. INTEGUMENTARY: Denies rash, denies eczema. NEUROLOGICAL: Denies recent memory loss, no recent seizure activity. PSYCHIATRIC: Denies anxiety, denies depression. HEMATOLOGIC/LYMPHATIC: Denies anemia, denies enlarged lymph nodes. Past Medical History Past Medical History: Cancer, COPD, Deep Vein Thrombosis (DVT), Hearing Disorder / Deafness, Hypertension, Pneumonia, Rheumatoid Arthritis (RA) Additional Past Medical History / Comment(s): Bilateral hearing aid use. Colitis, Osteopenia, hx cancer of appendix, uses oxygen 3L continuous, chronic back pain, restless leg. 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 Hx Covid 01/16. History of Any Multi-Drug Resistant Organisms: MRSA Date of last positivie culture/infection: february 2021 MDRO Source:: urine Past Surgical History: Appendectomy, Bowel Resection, Hysterectomy, Joint Replacement, Orthopedic Surgery Additional Past Surgical History / Comment(s): Right knee replacement, EGD/colonoscopy, lasik eye surgery, right colectomy, colonoscopy 2016, pain procedure at [facility] with Dr Ty, [facility] with unilateral oophorectomy 1983, partial vulvectomy 2000, Kyphoplasty. Past Anesthesia/Blood Transfusion Reactions: No Reported Reaction Additional Past Anesthesia/Blood Transfusion Reaction / Comment(s): States is not supposed to have general anesthesia. "Cannot have tube in throat." Past Psychological History: ADD/ADHD, Anxiety, Depression Smoking Status: Former smoker - Past Family History Father Family Medical History: Cancer, COPD Additional Family Medical History / Comment(s): COLON cancer. Mother Family Medical History: Cancer Additional Family Medical History / Comment(s): ESOPHAGUS cancer. Sister(s) Family Medical History: Cancer Additional Family Medical History / Comment(s): CERVICAL cancer, basal cell cancer. Medications and Allergies Home Medications Medication Instructions Recorded Confirmed Type Pantoprazole Sodium [Protonix] 40 mg PO DAILY 12/30/20 08/24/22 History DULoxetine HCL [Cymbalta] 30 mg PO DAILY 01/15/21 08/24/22 History Montelukast [Singulair] 10 mg PO HS 02/19/21 08/24/22 History Ipratropium-Albuterol Nebulize 3 ml INHALATION RT-QID PRN 05/22/21 08/24/22 History [Duoneb 0.5 mg-3 mg/3 ml Soln] Furosemide [Lasix] 40 mg PO DAILY #30 tablet 06/10/21 08/24/22 Rx Ferrous Sulfate [Iron (65 MG 325 mg PO DAILY 07/04/21 08/24/22 History Elemental)] Formoterol Fumarate [Perforomist] 20 mcg INHALATION RT-BID #30 ml 07/06/21 08/24/22 Rx Magnesium Oxide [Mag-Ox] 200 mg PO DAILY 07/14/21 08/24/22 History Potassium Chloride [Klor-Con 20] 20 meq PO DAILY 07/14/21 08/24/22 History Budesonide [Pulmicort] 1 mg INHALATION RT-BID 08/05/21 08/24/22 History Meloxicam 15 mg PO DAILY 08/05/21 08/24/22 History Verapamil HCl [Verapamil ER] 120 mg PO DAILY 08/05/21 08/24/22 History predniSONE 5 mg PO DAILY 08/05/21 08/24/22 History Theophylline Anhydrous 200 mg PO BID 09/01/21 08/24/22 History [Theophylline] Albuterol Sulfate [Ventolin HFA] 2 puff INHALATION RT-Q6H PRN 04/20/22 08/24/22 History Cetirizine HCl 10 mg PO DAILY 04/20/22 08/24/22 History Cholecalciferol [Vitamin D3 (25 50 mcg PO DAILY 04/20/22 08/24/22 History Mcg = 1000 Iu)] Melatonin 5 mg PO HS PRN 04/20/22 08/24/22 History Multivit-Min/Iron/Folic/Lutein 1 tab PO DAILY 04/20/22 08/24/22 History [Centrum Silver Women Tablet] rOPINIRole HCL [Requip] 4 mg PO HS 04/20/22 08/24/22 History Albuterol Sulfate [Ventolin HFA] 2 puff INHALATION RT-Q6H PRN 08/24/22 08/24/22 History predniSONE See Taper PO DIRECTED 12 Days 08/29/22 Rx #20 tab Allergies Allergy/AdvReac Type Severity Reaction Status Date / Time infliximab [From Remicade] Allergy Dyspnea/HIV Verified 09/18/22 14:31 ES propoxyphene [From Darvon] Allergy Rash/Hives Verified 09/18/22 14:31 adhesive tape AdvReac "is hard Verified 09/18/22 14:31 on skin" Physical Exam Vitals: Vital Signs Temp Pulse Resp BP Pulse Ox 09/18/22 17:24 84 18 142/76 95 09/18/22 16:20 94 20 09/18/22 16:04 92 22 09/18/22 14:28 97.3 F L 91 26 H 124/74 78 L Intake and Output 09/18/22 09/18/22 09/18/22 06:59 14:59 22:59 Other: Weight 79.379 kg GENERAL EXAM: Alert, pleasant 67-year-old female patient, on 3 L nasal cannula, fairly comfortable in no apparent distress. 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 Normocephalic. EYES: Normal reaction of pupils, equal size. NOSE: Clear with pink turbinates. THROAT: No erythema or exudates. NECK: No masses, no JVD. CHEST: No chest wall deformity. LUNGS: Equal air entry with bilateral end expiratory wheeze, diminished. CVS: S1 and S2 normal with no audible murmur, regular rhythm. ABDOMEN: No hepatosplenomegaly, normal bowel sounds, no guarding or rigidity. SPINE: No scoliosis or deformity SKIN: No rashes CENTRAL NERVOUS SYSTEM: No focal deficits, tone is normal in all 4 extremities. EXTREMITIES: There is no peripheral edema. No clubbing, no cyanosis. Peripheral pulses are intact. Results - Laboratory Findings CBC and BMP: 09/18/22 15:06 09/18/22 15:06 PT/INR, D-dimer PT 9.6 sec (9.0-12.0) 09/18/22 15:06 INR 0.9 (<1.2) 09/18/22 15:06 Abnormal lab findings: Abnormal Labs 09/18/22 09/18/22 15:06 15:06 WBC 12.4 H RBC 3.74 L Neutrophils # 10.3 H Sodium 136 L Chloride 95 L Carbon Dioxide 38 H BUN 21 H Glucose 134 H Total Protein 5.9 L - Diagnostic Findings Chest x-ray: image reviewed Assessment and Plan Assessment: Acute exacerbation of chronic obstructive pulmonary disease, no evidence of pneumonia. Acute on chronic hypoxemic respiratory failure secondary to above, does have home oxygen at 4 L/m per nasal cannula Acute on chronic hypercapnic respiratory failure secondary to above, on BiPAP 10/03 in the outpatient setting History of a left upper lobe lesion measuring 18 x 13 mm in size. Being followed in the outpatient setting History of CoVID in 19 pneumonia History of chronic lower extremity edema Hypertension Attention deficit hyperactivity disorder Rheumatoid arthritis Chronic back pain Former smoker Plan: The patient was seen and evaluated Chest x-ray, labs and medications reviewed Continue DuoNeb inhalations, Symbicort, albuterol Continue IV Solu-Medrol 60 mg every 6 hours Empiric antibiotics in the form of azithromycin Heparin for DVT prophylaxis Titrate the FiO2 as tolerated We will continue to follow and make further recommendations based on her clinical status I have personally seen and examined the patient, performed the documentation and the assessment and plan as written. Number of minutes spent on the visit: 20. Joint evaluation with the nurse practitioner. The patient was seen in consultation. Agree and the above-mentioned plan. Patient was treated for an acute COPD exacerbation. We'll continue to follow.
[2022-09-18] MEDS: methylPREDNISolone SOD SUCCI 125 MG/2 ML VIAL IV SCH ×2 (20:40→23:51)
[2022-09-18] MEDS: AZITHROMYCIN 500 MG TAB PO SCH (20:40)
[2022-09-18] MEDS: IPRATROPIUM-ALBUTEROL 3 ML NEB INHALATION SCH (21:51)
[2022-09-18] MEDS: SYMBICORT 160-4.5 MCG INHALER INHALATION SCH (21:51)
[2022-09-18] MEDS: ALBUTEROL NEBULIZED 2.5 MG/3 ML INHALATION PRN (23:29)
[2022-09-18] MEDS: HEPARIN SODIUM,PORCINE/PF 5,000 UNIT/0.5 ML SYRINGE SQ SCH (23:52)
[2022-09-19] MEDS: ALBUTEROL NEBULIZED 2.5 MG/3 ML INHALATION PRN (03:25)
[2022-09-19] MEDS: methylPREDNISolone SOD SUCCI 125 MG/2 ML VIAL IV SCH ×4 (05:10→23:30)
[2022-09-19] MEDS: SYMBICORT 160-4.5 MCG INHALER INHALATION SCH ×2 (07:24→19:20)
[2022-09-19] MEDS: IPRATROPIUM-ALBUTEROL 3 ML NEB INHALATION SCH ×4 (07:24→19:20)
[2022-09-19] MEDS: HEPARIN SODIUM,PORCINE/PF 5,000 UNIT/0.5 ML SYRINGE SQ SCH ×3 (07:27→23:30)
[2022-09-19 08:49] LABS: Basophils % (A) 0 %; Eosinophils % (A) 0 %; HCT 34.8 % (34.0-46.0); Hypochromasia Moderate; Lymphocytes # (A) 0.5 k/uL (1.0-4.8); Lymphocytes % (A) 5 %; MCHC 31.5 g/dL (31.0-37.0); MCV 98.5 fL (80.0-100.0); Mean Platelet Volume 9.9; Monocytes # (A) 0.1 k/uL (0-1.0); Monocytes % (A) 1 %; Neutrophils # (A) 8.3 k/uL (1.3-7.7); Neutrophils % (A) 93 %; Platelet Count 252 k/uL (150-450); RBC 3.54 m/uL (3.80-5.40); RDW 13.7 % (11.5-15.5); WBC 8.9 k/uL (3.8-10.6)
[2022-09-19 09:04] LABS: African American GFR (CKD) >90 (>60 ml/min/1.73 sqM); Anion Gap 4 mmol/L; Blood Urea Nitrogen 24 mg/dL (7-17); Calcium 8.3 mg/dL (8.4-10.2); Carbon Dioxide 39 mmol/L (22-30); Chloride 97 mmol/L (98-107); Glucose 212 mg/dL (74-99); Magnesium 2.1 mg/dL (1.6-2.3); Non-African American GFR(CKD) 89 (>60 ml/min/1.73 sqM); Potassium 4.2 mmol/L (3.5-5.1); Sodium 140 mmol/L (137-145)
--- NOTE | 2022-09-19 10:02 | P.PN ---
Subjective Progress Note Date: 09/19/22 Pt has no new complaints today. Still having dyspnea. Gen: in no apparent distress, resting comfortably in bed Eyes: PERRL, no scleral injection or icterus HENT: normocephalic, atraumatic, good hearing acuity, moist mucous membranes Neck: no tracheal deviation, full range of motion Resp: Impaired air exchange, breathing with no accessory muscle use, no tactile fremitus, poor air exchange, diffuse wheezing CVS: good distal perfusion x 4, no pitting edema, irregular rhythm with regular rate, no murmurs GI: soft, NTTP, ND, no hepatosplenomegaly : no suprapubic tenderness, no CVAT, patterson catheter not present MSK: no clubbing, no cyanosis, no noted contractures of extremities Skin: no noted rashes, petechiae; temperature of skin is appropriate Neuro: moving all extremities without signs of weakness, CN II-XII intact Psych: cooperative, euthymic mood, insight and judgment intact Assessment/plan: Acute on chronic respiratory failure with hypoxemia and hypercarbia COPD exacerbation -Admit to inpatient, telemetry -oxygen as needed -Pulmonology consult -DuoNeb's -Steroids -Azithromycin -Palliative care consult Hypertension ADHD Chronic back pain Rheumatoid arthritis -Home medications reviewed and reconciled Patient is full code DVT prophylaxis with heparin 3 times a day Objective - Vital Signs Vital signs: Vital Signs Temp 97.7 F 09/19/22 06:32 Pulse 91 09/19/22 07:37 Resp 18 09/19/22 06:32 BP 171/92 09/19/22 06:32 Pulse Ox 96 09/19/22 07:26 FiO2 Intake & Output 09/18/22 09/19/22 09/19/22 18:59 06:59 18:59 Weight 79.379 kg 79.379 kg - Labs CBC & Chem 7: 09/19/22 08:39 09/19/22 08:39 Labs: Abnormal Lab Results - Last 24 Hours (Table) 09/18/22 09/18/22 09/19/22 Range/Units 15:06 15:06 08:39 WBC 12.4 H (3.8-10.6) k/uL RBC 3.74 L 3.54 L (3.80-5.40) m/uL Hgb 11.0 L (11.4-16.0) gm/dL Neutrophils # 10.3 H 8.3 H (1.3-7.7) k/uL Lymphocytes # 0.5 L (1.0-4.8) k/uL Sodium 136 L (137-145) mmol/L Chloride 95 L (98-107) mmol/L Carbon Dioxide 38 H (22-30) mmol/L BUN 21 H (7-17) mg/dL Glucose 134 H (74-99) mg/dL Calcium (8.4-10.2) mg/dL Total Protein 5.9 L (6.3-8.2) g/dL 09/19/22 Range/Units 08:39 WBC (3.8-10.6) k/uL RBC (3.80-5.40) m/uL Hgb (11.4-16.0) gm/dL Neutrophils # (1.3-7.7) k/uL Lymphocytes # (1.0-4.8) k/uL Sodium (137-145) mmol/L Chloride 97 L (98-107) mmol/L Carbon Dioxide 39 H (22-30) mmol/L BUN 24 H (7-17) mg/dL Glucose 212 H (74-99) mg/dL Calcium 8.3 L (8.4-10.2) mg/dL Total Protein (6.3-8.2) g/dL
[2022-09-19] MEDS: AZITHROMYCIN 500 MG TAB PO SCH (16:03)
--- NOTE | 2022-09-19 16:13 | P.PN ---
Subjective Progress Note Date: 09/19/22 This is a very pleasant 67-year-old female patient with a history of hypertensi on, rheumatoid arthritis, chronic lower extremity edema, attention deficit hyperactivity disorder, chronic back pain, COVID-19 pneumonia, chronic hypoxemic and hypercapnic respiratory failure utilizing oxygen at 4 L at home. She also has a noninvasive positive pressure ventilatory machine for nighttime. She is also noted to have a left upper lobe lung lesion measuring 18 x 13 mm. Based on these findings she was deactivated from the transplant list. Follow-up CAT scan to be performed in September of this year. She follows with Dr. Goodman in our office for the same. She was last discharged for COPD exacerbation on 08/29/2022. She presented here to the emergency room earlier today with c omplaints of increasing shortness of breath, cough and congestion for the past 6 days. His x-ray reveals some right upper lobe linear scarring or atelectasis without change. No congestive heart failure. White count 12.4. Hemoglobin 11.7. Sodium 136. Potassium 4.3. BUN 21. Creatinine 0.72. Glucose 134. Troponin negative 1. She's been initiated on Symbicort, IV Solu-Medrol, DuoNeb inhalations. Empiric antibiotics in the form of azithromycin. She is seen today in consultation in the emergency department. She is currently sitting up on the stretcher. Awake and alert in no acute distress maintaining O2 saturations in the mid 90s on 3 L/m per nasal cannula. She's been afebrile. On today's evaluation of 09/19/2022, the patient is doing well. No altered mentation. No chest pain. No shortness of breath. She does have chronic shortness of breath and acute exacerbation of her chronic COPD is gradually improving. The patient remains on IV Solu-Medrol. The patient had a CAT scan of the chest that was done on 09/18/2022 and this was done to rule out possibility of malignancy. The CAT scan showed a stable left upper lobe 60 mm groundglass pulmonary nodule which has not changed compared to the earlier CAT scan from 08/28/2022. At the same time, the patient scintiscan of the chest showed no evidence of any pneumonia. There was evidence of linear atelectasis/scarring in the right involving the inferior aspect of the right upper lobe along the fissure. No significant change in the overall findings. Left upper lobe pulmonary nodule remains stable. No mediastinal lymphadenopathy. No hemoptysis. No pleurisy. No chest pain. No other complaints and the patient's blood work from today shows a white cell count of 8.9 with a hemoglobin of 11 BUN of 24 creatinine of 0.69 and a sodium level is at 140. Objective - Vital Signs Vital signs: Vital Signs Temp 98.3 F 09/19/22 12:25 Pulse 120 H 09/19/22 15:54 Resp 22 09/19/22 12:25 BP 143/69 09/19/22 12:25 Pulse Ox 93 L 09/19/22 12:25 FiO2 Intake & Output 09/18/22 09/19/22 09/19/22 18:59 06:59 18:59 Intake Total 118 Balance 118 Weight 79.379 kg 79.379 kg Intake: Oral 118 - Exam GENERAL EXAM: Alert, pleasant 67-year-old female patient, on 3 L nasal cannula, fairly comfortable in no apparent distress. 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 Normocephalic. EYES: Normal reaction of pupils, equal size. NOSE: Clear with pink turbinates. THROAT: No erythema or exudates. NECK: No masses, no JVD. CHEST: No chest wall deformity. LUNGS: Equal air entry with bilateral end expiratory wheeze, diminished. CVS: S1 and S2 normal with no audible murmur, regular rhythm. ABDOMEN: No hepatosplenomegaly, normal bowel sounds, no guarding or rigidity. SPINE: No scoliosis or deformity SKIN: No rashes CENTRAL NERVOUS SYSTEM: No focal deficits, tone is normal in all 4 extremities. EXTREMITIES: There is no peripheral edema. No clubbing, no cyanosis. Peripheral pulses are intact. - Labs CBC & Chem 7: 09/19/22 08:39 09/19/22 08:39 Labs: Abnormal Lab Results - Last 24 Hours (Table) 09/19/22 09/19/22 Range/Units 08:39 08:39 RBC 3.54 L (3.80-5.40) m/uL Hgb 11.0 L (11.4-16.0) gm/dL Neutrophils # 8.3 H (1.3-7.7) k/uL Lymphocytes # 0.5 L (1.0-4.8) k/uL Chloride 97 L (98-107) mmol/L Carbon Dioxide 39 H (22-30) mmol/L BUN 24 H (7-17) mg/dL Glucose 212 H (74-99) mg/dL Calcium 8.3 L (8.4-10.2) mg/dL Assessment and Plan Assessment: Acute exacerbation of chronic obstructive pulmonary disease, no evidence of pneumonia. Clinically improving. CAT scan of the chest showed no evidence of any pneumonia. Stable left upper lobe groundglass pulmonary nodule measuring 60 mm in size. Acute on chronic hypoxemic respiratory failure secondary to above, does have home oxygen at 4 L/m per nasal cannula Acute on chronic hypercapnic respiratory failure secondary to above, on BiPAP 10/03 in the outpatient setting History of a left upper lobe lesion measuring 18 x 13 mm in size. 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
[2022-09-19] MEDS ORDERED: ALBUTEROL NEBULIZED 2.5 MG/3 ML INHALATION PRN (17:54)
[2022-09-19] MEDS: MONTELUKAST 10 MG TAB PO SCH (20:37)
[2022-09-19] MEDS: rOPINIRole HCL 4 MG TABLET PO SCH (20:37)
--- NOTE | 2022-09-19 23:00 | P.CONS ---
History of Present Illness - Reason for Consult Consult date: 09/19/22 Goals of care Requesting physician: Frank Melvin - Chief Complaint Shortness of breath - History of Present Illness The patient is a 67 year old woman with past medical history of hypertension, rheumatoid arthritis, chronic lower extremity edema, attention deficit hype ractivity disorder, chronic back pain, COVID-19 pneumonia, chronic hypoxemic and hypercapnic respiratory failure utilizing oxygen at 4 L at home and she also has a noninvasive positive pressure ventilatory machine for nighttime. She also has end stage COPD with chronic respiratory failure. She presented to the emergency department on 09/18/22 for evaluation of shortness of breath. Patient says that she is chronically dyspneic at baseline, however the last couple days she's noticed increasing gradually shortness of breath. She also reports a cough with minimal sputum production. She denied having any fevers, but reports chills. She reports some nausea, but no vomiting. She denies syncope, palpitations, chest pain, fevers, abdominal pain, constipation, diarrhea, numbness of extremities. She does report generalized weakness. Chest x-ray shows right upper lobe linear scarring without change when compared to prior. The patient She is also noted to have a left upper lobe lung lesion measuring 18 x 13 mm. Based on these findings she was deactivated from the transplant list. Follow-up CAT scan to be performed in September of this year. She follows with Dr. Goodman in our office for the same. She was last discharged for COPD exacerbation on 08/29/2022. She presented here to the emergency room earlier today with complaints of increasing shortness of breath, cough and congestion for the past 6 days. His x-ray reveals some right upper lobe linear scarring or atelectasis without change. No congestive heart failure. 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 History of Any Multi-Drug Resistant Organisms: MRSA Year Discovered:: february 2021 MDRO Source:: urine Past Surgical History: Appendectomy, Back Surgery, Bowel Resection, Ear Surgery, Hysterectomy, Joint Replacement Additional Past Surgical History / Comment(s): Partial vulvectomy, TAD with unilateral oophorectomy, R colectomy, EGD, colonoscopy, total R knee arthroplasty, kyphoplasty/bx, pain procedures, bilateral myringotomy/tubes. Past Anesthesia/Blood Transfusion Reactions: No Reported Reaction Additional Past Anesthesia/Blood Transfusion Reaction / Comm: States is not supposed to have general anesthesia. "Cannot have tube in throat." Smoking Status: Former smoker - Past Family History Father Family Medical History: Cancer, COPD Additional Family Medical History / Comment(s): COLON cancer. Mother Family Medical History: Cancer Additional Family Medical History / Comment(s): ESOPHAGUS cancer. Sister(s) Family Medical History: Cancer Additional Family Medical History / Comment(s): CERVICAL cancer, basal cell cancer. Medications and Allergies Home Medications Medication Instructions Recorded Confirmed Type DULoxetine HCL [Cymbalta] 30 mg PO DAILY 01/15/21 09/19/22 History Montelukast [Singulair] 10 mg PO HS 02/19/21 09/19/22 History Ferrous Sulfate [Iron (65 MG 325 mg PO DAILY 07/04/21 09/19/22 History Elemental)] Magnesium Oxide [Mag-Ox] 200 mg PO DAILY 07/14/21 09/19/22 History Meloxicam 15 mg PO DAILY 08/05/21 09/19/22 History Cetirizine HCl 10 mg PO DAILY 04/20/22 09/19/22 History Albuterol Sulfate [Ventolin HFA] 2 puff INHALATION RT-Q6H PRN 08/24/22 09/19/22 History Budesonide [Pulmicort] 0.5 mg INHALATION RT-BID 09/19/22 09/19/22 History Formoterol Fumarate [Perforomist] 20 mcg INHALATION RT-BID 09/19/22 09/19/22 History Ipratropium-Albuterol Nebulize 3 ml INHALATION RT-QID 09/19/22 09/19/22 History [Duoneb 0.5 mg-3 mg/3 ml Soln] Theophylline 24 Hour [Sekou-24] 400 mg PO DAILY 09/19/22 09/19/22 History Verapamil HCl [Verapamil ER] 120 mg PO DAILY 09/19/22 09/19/22 History rOPINIRole HCL [Requip] 4 mg PO HS 09/19/22 09/19/22 History Allergies Allergy/AdvReac Type Severity Reaction Status Date / Time infliximab [From Remicade] Allergy Dyspnea/HIV Verified 09/19/22 08:59 ES propoxyphene [From Darvon] Allergy Rash/Hives Verified 09/19/22 08:59 adhesive tape AdvReac "is hard Verified 09/19/22 08:59 on skin" Physical Exam Vitals: Vital Signs Temp Pulse Pulse Resp BP BP Pulse Ox 09/19/22 19:46 98.5 F 108 H 18 136/85 95 09/19/22 19:35 110 H 09/19/22 19:21 107 H 09/19/22 16:00 102 H 18 175/84 91 L 09/19/22 15:54 120 H 09/19/22 12:25 98.3 F 111 H 22 143/69 93 L 09/19/22 11:35 95 09/19/22 11:19 98 09/19/22 10:20 98.1 F 99 20 121/58 95 09/19/22 07:37 91 09/19/22 07:26 90 96 09/19/22 06:32 97.7 F 84 18 171/92 97 09/19/22 06:08 18 96 09/19/22 05:07 98.6 F 84 18 144/66 96 09/19/22 03:37 95 09/19/22 03:25 94 09/19/22 01:38 90 21 145/77 97 09/18/22 23:42 91 09/18/22 23:29 94 09/18/22 23:14 98 18 144/76 95 09/18/22 22:01 93 09/18/22 21:53 92 09/18/22 20:31 89 16 143/70 98 Intake and Output 09/19/22 09/19/22 09/19/22 06:59 14:59 22:59 Intake Total 118 240 Balance 118 240 Intake: Oral 118 240 Other: # Voids 2 Weight 79.379 kg Results CBC & Chem 7: 09/19/22 08:39 09/19/22 08:39 Labs: Abnormal Lab Results - Last 24 Hours (Table) 09/19/22 09/19/22 Range/Units 08:39 08:39 RBC 3.54 L (3.80-5.40) m/uL Hgb 11.0 L (11.4-16.0) gm/dL Neutrophils # 8.3 H (1.3-7.7) k/uL Lymphocytes # 0.5 L (1.0-4.8) k/uL Chloride 97 L (98-107) mmol/L Carbon Dioxide 39 H (22-30) mmol/L BUN 24 H (7-17) mg/dL Glucose 212 H (74-99) mg/dL Calcium 8.3 L (8.4-10.2) mg/dL Microbiology - Last 24 Hours (Table) 09/18/22 15:06 Blood Culture - Preliminary Blood No Growth after 24 hours 09/18/22 15:06 Blood Culture - Preliminary Blood No Growth after 24 hours Chest x-ray: report reviewed CT scan - chest: report reviewed Assessment and Plan Assessment: Social * 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, 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 * Marital status - * Children/grandchildren - no children * Residence - House * Lives with - alone * ETOH - No * Tobacco - Former smoker, quit 2000 * Illicit drugs - No Spiritual/Cultural * A spiritual person - Yes * Buddhist - Mormonism * Belong to a particular samaritan - No * Beliefs a source of comfort and strength - Yes * Orthodoxy or cultural practices restrictions - No * EOL considerations/rituals - None Functional Assessment * Able to walk independently - Yes * Assistive devices - Walker * Able to use the bathroom independently - Yes * Continent - Yes * Require assistance bathing- No * Able to feed self - Yes * Who prepares meals - Patient * How many meals a day eaten - 2-3 * What percentage of meals eaten daily - >50% * Able to clean house/do laundry - Yes * Transportation - sister * Able to shop -yes * Who manages medications -patient * Who manages finances - patient Psychological/Emotional * Dementia present - No * Insight and judgment - Intact * Depression - Yes * Suicidal thoughts - No * Good support system - Yes * Patients goals - optimize functionality * Frequent hospitalizations - Yes * Desire to keep coming back to the hospital for treatment - Yes Symptoms * Pain - chronic back pain, continue [place] and Tylenol * Fatigue - Weak and tired * SOB - SOB at rest, continue Albuterol, Solumedrol, Symbicort, and Duoneb * Insomnia - Yes, add melatonin * N/V - Occasional, add Zofran prn * Anxiety - No * Depression - Yes * Confusion - No * Agitation - No * Hallucinations - No * Appetite/weight loss - No recent weight loss or loss of appetite. Continue with heart healthy diet * Dysphagia - No * Constipation - No, LBM 09/18 * Incontinence - No * Itch - No * Cough - + dry cough Plan: Plan: Summary/Goals - Education provided regarding the trajectory of her COPD. The patient states she was on the lung transplant list and is a patient of Dr. Goodman'mason. She was taken off the transplant list due to a concern for malignancy to her left upper lobe. Per pulmonary's note, noted to have a left upper lobe lung lesion measuring 18 x 13 mm. The patient had a CT scan of the chest that was done on 09/18/2022 and this was done to rule out possibility of malignancy. The CT scan showed a stable left upper lobe 60 mm groundglass pulmonary nodule which has not changed compared to the earlier CT scan from 08/28/2022. At the same time, the patient CT scan of the chest showed no evidence of any pneumonia. There was evidence of linear atelectasis/scarring in the right involving the inferior aspect of the right upper lobe along the fissure. No significant change in the overall findings. Left upper lobe pulmonary nodule remains stable. No mediastinal lymphadenopathy. Information regarding palliative care philosophies and services provided. The patient understands that she can still receive aggressive treatment for her chronic illnesses while in palliative care. She will continue to see Dr. Alonzo and is hopeful she can get back on the transplant list. She would like to receive outpatient palliative care in attempt to help control her symptoms at home and prevent frequent hospital admissions. Recommendations - Home with C with OP palliative care Advanced Directives - None on file Code Status - Full code Thank you for this consultation Cristina Pollard [facility] [place] [id number] Email: [email or web address] Time with Patient: Greater than 30 Time with Patient: Greater than 30
[2022-09-20] MEDS: ALBUTEROL NEBULIZED 2.5 MG/3 ML INHALATION PRN ×3 (00:08→23:15)
[2022-09-20] MEDS: MELATONIN 5 MG TABLET PO PRN ×2 (02:29→21:12)
[2022-09-20] MEDS: methylPREDNISolone SOD SUCCI 125 MG/2 ML VIAL IV SCH ×4 (06:11→23:38)
[2022-09-20 06:12] LABS: Glucose,Whole Blood 135 mg/dL (70-110)
[2022-09-20] MEDS: INSULIN ASPART (NovoLOG) 100 UNIT/ML VIAL SQ SCH ×4 (06:16→21:10)
[2022-09-20] MEDS: IPRATROPIUM-ALBUTEROL 3 ML NEB INHALATION SCH ×4 (08:06→19:35)
[2022-09-20] MEDS: SYMBICORT 160-4.5 MCG INHALER INHALATION SCH ×2 (08:06→19:35)
[2022-09-20] MEDS: HEPARIN SODIUM,PORCINE/PF 5,000 UNIT/0.5 ML SYRINGE SQ SCH ×3 (09:02→23:38)
[2022-09-20] MEDS: LORATADINE 10 MG TAB PO SCH (09:03)
[2022-09-20] MEDS: MELOXICAM 7.5 MG TAB PO SCH (09:03)
[2022-09-20] MEDS: FERROUS SULFATE 325 MG TAB PO SCH (09:03)
[2022-09-20] MEDS: THEOPHYLLINE 24 HOUR 400 MG CAP.ER.24H PO SCH (09:04)
[2022-09-20] MEDS: DULoxetine HCL 30 MG CAPSULE.DR PO SCH (09:04)
[2022-09-20] MEDS: VERAPAMIL SR 120 MG TABLET.ER PO SCH (09:04)
[2022-09-20] MEDS: MAGNESIUM OXIDE 400 MG TAB PO SCH (09:04)
--- NOTE | 2022-09-20 11:16 | P.PN ---
Subjective Progress Note Date: 09/20/22 Principal diagnosis: Sob Still having severe sob, cough and pleuritic chest pain. No fevers. No overnight events. Objective - Vital Signs Vital signs: Vital Signs Temp 97.9 F 09/20/22 09:00 Pulse 82 09/20/22 09:00 Resp 23 09/20/22 09:00 BP 136/63 09/20/22 09:00 Pulse Ox 94 L 09/20/22 09:00 FiO2 30 09/20/22 00:09 Intake & Output 09/19/22 09/20/22 09/20/22 18:59 06:59 18:59 Intake Total 358 240 Balance 358 240 Weight 79.379 kg Intake: Oral 358 240 Other: # Voids 2 2 - Exam Constitutional: No acute distress, conversant, pleasant Eyes:Anicteric sclerae, moist conjunctiva, no lid-lag, PERRLA, ENMT: Oropharynx clear, no erythema, exudates Neck: Supple, FROM, no masses, or JVD, No carotid bruits, No thyromegaly Lungs: Bilateral wheezing and rhonchi, Clear to percussion, Normal respiratory effort, no accessory muscle use Cardiovascular: Heart regular in rate and rhythm, No murmurs, gallops, or rubs, No peripheral edema Abdominal: Soft, Nontender, no guarding, rebound or rigidity, Normoactive bowel sounds, No hepatomegaly, No splenomegaly, No palpable mass Skin: Normal temperature, tone, texture, turgor, no induration, No subcutaneous nodules, No rash, lesions, No ulcers Extremities: No digital cyanosis, No clubbing, Pedal pulses intact and symmetrical, Radial pulses intact and symmetrical, No calf tenderness Psychiatric: Alert and oriented to person, place and time, appropriate affect, intact judgement Neuro: Muscles Strength 5/5 in all 4 extremities, Sensation to light touch grossly present throughout, Cranial nerves II-XII grossly intact, no focal sensory deficits - Labs CBC & Chem 7: 09/19/22 08:39 09/19/22 08:39 Labs: Abnormal Lab Results - Last 24 Hours (Table) 09/20/22 Range/Units 06:10 POC Glucose (mg/dL) 135 H (70-110) mg/dL Microbiology - Last 24 Hours (Table) 09/18/22 15:06 Blood Culture - Preliminary Blood No Growth after 24 hours 09/18/22 15:06 Blood Culture - Preliminary Blood No Growth after 24 hours Assessment and Plan Plan: Acute on chronic respiratory failure with hypoxemia and hypercarbia COPD exacerbation -oxygen as needed -Pulmonology consult -DuoNeb's -Steroids -Azithromycin -Palliative care consult Hypertension ADHD Chronic back pain Rheumatoid arthritis -Home medications reviewed and reconciled Patient is full code DVT prophylaxis with heparin 3 times a day
[2022-09-20 11:46] LABS: Glucose,Whole Blood 134 mg/dL (70-110)
[2022-09-20 16:36] LABS: Glucose,Whole Blood 196 mg/dL (70-110)
[2022-09-20] MEDS: AZITHROMYCIN 500 MG TAB PO SCH (16:54)
--- NOTE | 2022-09-20 17:15 | P.PN ---
Subjective Progress Note Date: 09/20/22 This is a very pleasant 67-year-old female patient with a history of hypertensi on, rheumatoid arthritis, chronic lower extremity edema, attention deficit hyperactivity disorder, chronic back pain, COVID-19 pneumonia, chronic hypoxemic and hypercapnic respiratory failure utilizing oxygen at 4 L at home. She also has a noninvasive positive pressure ventilatory machine for nighttime. She is also noted to have a left upper lobe lung lesion measuring 18 x 13 mm. Based on these findings she was deactivated from the transplant list. Follow-up CAT scan to be performed in September of this year. She follows with Dr. Goodman in our office for the same. She was last discharged for COPD exacerbation on 08/29/2022. She presented here to the emergency room earlier today with c omplaints of increasing shortness of breath, cough and congestion for the past 6 days. His x-ray reveals some right upper lobe linear scarring or atelectasis without change. No congestive heart failure. White count 12.4. Hemoglobin 11.7. Sodium 136. Potassium 4.3. BUN 21. Creatinine 0.72. Glucose 134. Troponin negative 1. She's been initiated on Symbicort, IV Solu-Medrol, DuoNeb inhalations. Empiric antibiotics in the form of azithromycin. She is seen today in consultation in the emergency department. She is currently sitting up on the stretcher. Awake and alert in no acute distress maintaining O2 saturations in the mid 90s on 3 L/m per nasal cannula. She's been afebrile. On today's evaluation of 09/19/2022, the patient is doing well. No altered mentation. No chest pain. No shortness of breath. She does have chronic shortness of breath and acute exacerbation of her chronic COPD is gradually improving. The patient remains on IV Solu-Medrol. The patient had a CAT scan of the chest that was done on 09/18/2022 and this was done to rule out possibility of malignancy. The CAT scan showed a stable left upper lobe 60 mm groundglass pulmonary nodule which has not changed compared to the earlier CAT scan from 08/28/2022. At the same time, the patient scintiscan of the chest showed no evidence of any pneumonia. There was evidence of linear atelectasis/scarring in the right involving the inferior aspect of the right upper lobe along the fissure. No significant change in the overall findings. Left upper lobe pulmonary nodule remains stable. No mediastinal lymphadenopathy. No hemoptysis. No pleurisy. No chest pain. No other complaints and the patient's blood work from today shows a white cell count of 8.9 with a hemoglobin of 11 BUN of 24 creatinine of 0.69 and a sodium level is at 140. On 09/17/2022, the patient is still bronchospastic and wheezy and the patient is slightly worse compared to yesterday. For that reason, we elected to keep the patient over the next 24-48 hours for IV steroid treatment. The patient is still receiving IV Solu-Medrol 60 mg every 6 hours. She remains on Symbicort as maintenance and addition of breath treatments are being also utilizing combination with ipratropium might 4 times a day. The patient on empiric antibiotic coverage with Zithromax. Rest of the medications remain unchanged. No new complaint otherwise. No altered mentation. No chest pain or pleurisy. Objective - Vital Signs Vital signs: Vital Signs Temp 97.9 F 09/20/22 09:00 Pulse 106 H 09/20/22 16:25 Resp 29 H 09/20/22 11:41 BP 151/62 09/20/22 11:41 Pulse Ox 96 09/20/22 16:15 FiO2 30 09/20/22 00:09 Intake & Output 09/19/22 09/20/22 09/20/22 18:59 06:59 18:59 Intake Total 358 240 Balance 358 240 Weight 79.379 kg Intake: Oral 358 240 Other: # Voids 2 2 - Exam GENERAL EXAM: Alert, pleasant 67-year-old female patient, on 3 L nasal cannula, fairly comfortable in no apparent distress. 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 Normocephalic. EYES: Normal reaction of pupils, equal size. NOSE: Clear with pink turbinates. THROAT: No erythema or exudates. NECK: No masses, no JVD. CHEST: No chest wall deformity. LUNGS: Equal air entry with bilateral end expiratory wheeze, diminished. CVS: S1 and S2 normal with no audible murmur, regular rhythm. ABDOMEN: No hepatosplenomegaly, normal bowel sounds, no guarding or rigidity. SPINE: No scoliosis or deformity SKIN: No rashes CENTRAL NERVOUS SYSTEM: No focal deficits, tone is normal in all 4 extremities. EXTREMITIES: There is no peripheral edema. No clubbing, no cyanosis. Peripheral pulses are intact. - Labs CBC & Chem 7: 09/19/22 08:39 09/19/22 08:39 Labs: Abnormal Lab Results - Last 24 Hours (Table) 09/20/22 09/20/22 09/20/22 Range/Units 06:10 11:44 16:34 POC Glucose (mg/dL) 135 H 134 H 196 H (70-110) mg/dL Microbiology - Last 24 Hours (Table) 09/18/22 15:06 Blood Culture - Preliminary Blood No Growth after 24 hours 09/18/22 15:06 Blood Culture - Preliminary Blood No Growth after 24 hours Assessment and Plan Assessment: Acute exacerbation of chronic obstructive pulmonary disease, no evidence of pneumonia. Clinically improving. CAT scan of the chest showed no evidence of any pneumonia. Stable left upper lobe groundglass pulmonary nodule measuring 16 mm in size. Acute on chronic hypoxemic respiratory failure secondary to above, does have home oxygen at 4 L/m per nasal cannula Acute on chronic hypercapnic respiratory failure secondary to above, on BiPAP 10/03 in the outpatient setting History of a left upper lobe lesion measuring 18 x 13 mm in size. Being followed in the outpatient setting History of CoVID in 19 pneumonia History of chronic lower extremity edema Hypertension Attention deficit hyperactivity disorder Rheumatoid arthritis Chronic back pain Former smoker Plan: still symptomatic and bronchospastic and wheezy. 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
[2022-09-20 20:04] LABS: Glucose,Whole Blood 313 mg/dL (70-110)
[2022-09-20] MEDS: MONTELUKAST 10 MG TAB PO SCH (21:10)
[2022-09-20] MEDS: rOPINIRole HCL 4 MG TABLET PO SCH (21:12)
[2022-09-21] MEDS: ALBUTEROL NEBULIZED 2.5 MG/3 ML INHALATION PRN ×2 (03:20→23:50)
[2022-09-21] MEDS: methylPREDNISolone SOD SUCCI 125 MG/2 ML VIAL IV SCH ×3 (06:26→17:12)
[2022-09-21 06:33] LABS: Glucose,Whole Blood 168 mg/dL (70-110)
[2022-09-21] MEDS: INSULIN ASPART (NovoLOG) 100 UNIT/ML VIAL SQ SCH ×4 (06:35→20:36)
[2022-09-21] MEDS: IPRATROPIUM-ALBUTEROL 3 ML NEB INHALATION SCH ×4 (07:35→19:00)
[2022-09-21] MEDS: SYMBICORT 160-4.5 MCG INHALER INHALATION SCH ×2 (07:35→18:59)
[2022-09-21] MEDS: MELOXICAM 7.5 MG TAB PO SCH (07:55)
[2022-09-21] MEDS: HEPARIN SODIUM,PORCINE/PF 5,000 UNIT/0.5 ML SYRINGE SQ SCH ×2 (07:55→17:11)
[2022-09-21] MEDS: DULoxetine HCL 30 MG CAPSULE.DR PO SCH (07:56)
[2022-09-21] MEDS: FERROUS SULFATE 325 MG TAB PO SCH (07:56)
[2022-09-21] MEDS: LORATADINE 10 MG TAB PO SCH (07:56)
[2022-09-21] MEDS: MAGNESIUM OXIDE 400 MG TAB PO SCH (07:57)
[2022-09-21] MEDS: VERAPAMIL SR 120 MG TABLET.ER PO SCH (07:57)
[2022-09-21] MEDS: THEOPHYLLINE 24 HOUR 400 MG CAP.ER.24H PO SCH (07:57)
[2022-09-21 12:17] LABS: Glucose,Whole Blood 132 mg/dL (70-110)
--- NOTE | 2022-09-21 13:24 | P.PN ---
Subjective Progress Note Date: 09/21/22 Principal diagnosis: Sob She reported that she is starting to feel better but not back to baseline. No fevers or chills. No other overnight events. Objective - Vital Signs Vital signs: Vital Signs Temp 97.7 F 09/21/22 07:55 Pulse 113 H 09/21/22 11:46 Resp 17 09/21/22 11:46 BP 141/66 09/21/22 11:46 Pulse Ox 98 09/21/22 11:46 FiO2 30 09/21/22 03:20 Intake & Output 09/20/22 09/21/22 09/21/22 18:59 06:59 18:59 Intake Total 540 118 Balance 540 118 Intake: Oral 540 118 Other: # Voids 2 1 - Exam Constitutional: No acute distress, conversant, pleasant Eyes:Anicteric sclerae, moist conjunctiva, no lid-lag, PERRLA, ENMT: Oropharynx clear, no erythema, exudates Neck: Supple, FROM, no masses, or JVD, No carotid bruits, No thyromegaly Lungs: Bilateral wheezing and rhonchi, Clear to percussion, Normal respiratory effort, no accessory muscle use Cardiovascular: Heart regular in rate and rhythm, No murmurs, gallops, or rubs, No peripheral edema Abdominal: Soft, Nontender, no guarding, rebound or rigidity, Normoactive bowel sounds, No hepatomegaly, No splenomegaly, No palpable mass Skin: Normal temperature, tone, texture, turgor, no induration, No subcutaneous nodules, No rash, lesions, No ulcers Extremities: No digital cyanosis, No clubbing, Pedal pulses intact and symmetrical, Radial pulses intact and symmetrical, No calf tenderness Psychiatric: Alert and oriented to person, place and time, appropriate affect, intact judgement Neuro: Muscles Strength 5/5 in all 4 extremities, Sensation to light touch grossly present throughout, Cranial nerves II-XII grossly intact, no focal sensory deficits - Labs CBC & Chem 7: 09/19/22 08:39 09/19/22 08:39 Labs: Abnormal Lab Results - Last 24 Hours (Table) 09/20/22 09/20/22 09/21/22 Range/Units 16:34 20:03 06:31 POC Glucose (mg/dL) 196 H 313 H 168 H (70-110) mg/dL 09/21/22 Range/Units 11:54 POC Glucose (mg/dL) 132 H (70-110) mg/dL Microbiology - Last 24 Hours (Table) 09/18/22 15:06 Blood Culture - Preliminary Blood No Growth after 48 hours 09/18/22 15:06 Blood Culture - Preliminary Blood No Growth after 48 hours Assessment and Plan Plan: Acute on chronic respiratory failure with hypoxemia and hypercarbia COPD exacerbation -oxygen as needed -Pulmonology following -DuoNeb's -Continue with steroids and azithromycin -Palliative care consult Hypertension ADHD Chronic back pain Rheumatoid arthritis -Home medications reviewed and reconciled Patient is full code DVT prophylaxis with heparin 3 times a day
--- NOTE | 2022-09-21 15:34 | P.PN ---
Subjective Progress Note Date: 09/21/22 This is a very pleasant 67-year-old female patient with a history of hypertensi on, rheumatoid arthritis, chronic lower extremity edema, attention deficit hyperactivity disorder, chronic back pain, COVID-19 pneumonia, chronic hypoxemic and hypercapnic respiratory failure utilizing oxygen at 4 L at home. She also has a noninvasive positive pressure ventilatory machine for nighttime. She is also noted to have a left upper lobe lung lesion measuring 18 x 13 mm. Based on these findings she was deactivated from the transplant list. Follow-up CAT scan to be performed in September of this year. She follows with Dr. Goodman in our office for the same. She was last discharged for COPD exacerbation on 08/29/2022. She presented here to the emergency room earlier today with c omplaints of increasing shortness of breath, cough and congestion for the past 6 days. His x-ray reveals some right upper lobe linear scarring or atelectasis without change. No congestive heart failure. White count 12.4. Hemoglobin 11.7. Sodium 136. Potassium 4.3. BUN 21. Creatinine 0.72. Glucose 134. Troponin negative 1. She's been initiated on Symbicort, IV Solu-Medrol, DuoNeb inhalations. Empiric antibiotics in the form of azithromycin. She is seen today in consultation in the emergency department. She is currently sitting up on the stretcher. Awake and alert in no acute distress maintaining O2 saturations in the mid 90s on 3 L/m per nasal cannula. She's been afebrile. On today's evaluation of 09/19/2022, the patient is doing well. No altered mentation. No chest pain. No shortness of breath. She does have chronic shortness of breath and acute exacerbation of her chronic COPD is gradually improving. The patient remains on IV Solu-Medrol. The patient had a CAT scan of the chest that was done on 09/18/2022 and this was done to rule out possibility of malignancy. The CAT scan showed a stable left upper lobe 60 mm groundglass pulmonary nodule which has not changed compared to the earlier CAT scan from 08/28/2022. At the same time, the patient scintiscan of the chest showed no evidence of any pneumonia. There was evidence of linear atelectasis/scarring in the right involving the inferior aspect of the right upper lobe along the fissure. No significant change in the overall findings. Left upper lobe pulmonary nodule remains stable. No mediastinal lymphadenopathy. No hemoptysis. No pleurisy. No chest pain. No other complaints and the patient's blood work from today shows a white cell count of 8.9 with a hemoglobin of 11 BUN of 24 creatinine of 0.69 and a sodium level is at 140. On 09/20/2022, the patient is still bronchospastic and wheezy and the patient is slightly worse compared to yesterday. For that reason, we elected to keep the patient over the next 24-48 hours for IV steroid treatment. The patient is still receiving IV Solu-Medrol 60 mg every 6 hours. She remains on Symbicort as maintenance and addition of breath treatments are being also utilizing combination with ipratropium might 4 times a day. The patient on empiric antibiotic coverage with Zithromax. Rest of the medications remain unchanged. No new complaint otherwise. No altered mentation. No chest pain or pleurisy. 09/21/2022, the patient is feeling slightly better. She has no new complaints. She remains on DuoNeb about treatments [id number] and she is also on IV Solu-Medrol. No major side effects from the systemic steroid treatment. The patient is on theophylline also. She is completing a 5 day course of Zithromax 500 mg by mouth daily. No fever. No chills. No significant hyperglycemia. No labs from today. No pleurisy or hemoptysis. Objective - Vital Signs Vital signs: Vital Signs Temp 97.7 F 09/21/22 07:55 Pulse 97 09/21/22 15:23 Resp 17 09/21/22 11:46 BP 141/66 09/21/22 11:46 Pulse Ox 98 09/21/22 11:46 FiO2 30 09/21/22 03:20 Intake & Output 09/20/22 09/21/22 09/21/22 18:59 06:59 18:59 Intake Total 540 236 Balance 540 236 Intake: Oral 540 236 Other: # Voids 2 1 - Exam GENERAL EXAM: Alert, pleasant 67-year-old female patient, on 3 L nasal cannula, fairly comfortable in no apparent distress. 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 Normocephalic. EYES: Normal reaction of pupils, equal size. NOSE: Clear with pink turbinates. THROAT: No erythema or exudates. NECK: No masses, no JVD. CHEST: No chest wall deformity. LUNGS: Equal air entry with bilateral end expiratory wheeze, diminished. CVS: S1 and S2 normal with no audible murmur, regular rhythm. ABDOMEN: No hepatosplenomegaly, normal bowel sounds, no guarding or rigidity. SPINE: No scoliosis or deformity SKIN: No rashes CENTRAL NERVOUS SYSTEM: No focal deficits, tone is normal in all 4 extremities. EXTREMITIES: There is no peripheral edema. No clubbing, no cyanosis. Periphera l pulses are intact. - Labs CBC & Chem 7: 09/19/22 08:39 09/19/22 08:39 Labs: Abnormal Lab Results - Last 24 Hours (Table) 09/20/22 09/20/22 09/21/22 Range/Units 16:34 20:03 06:31 POC Glucose (mg/dL) 196 H 313 H 168 H (70-110) mg/dL 09/21/22 Range/Units 11:54 POC Glucose (mg/dL) 132 H (70-110) mg/dL Microbiology - Last 24 Hours (Table) 09/18/22 15:06 Blood Culture - Preliminary Blood No Growth after 48 hours 09/18/22 15:06 Blood Culture - Preliminary Blood No Growth after 48 hours Assessment and Plan Assessment: Acute exacerbation of chronic obstructive pulmonary disease, no evidence of pneumonia. Clinically improving. CAT scan of the chest showed no evidence of any pneumonia. Stable left upper lobe groundglass pulmonary nodule measuring 16 mm in size. Acute on chronic hypoxemic respiratory failure secondary to above, does have home oxygen at 4 L/m per nasal cannula Acute on chronic hypercapnic respiratory failure secondary to above, on BiPAP 10/03 in the outpatient setting History of a left upper lobe lesion measuring 18 x 13 mm in size. Being followed in the outpatient setting History of CoVID in 19 pneumonia History of chronic lower extremity edema Hypertension Attention deficit hyperactivity disorder Rheumatoid arthritis Chronic back pain Former smoker Plan: still symptomatic and bronchospastic and wheezy , claims that she is slightly improved compared to yesterday Continue same treatment Continue DuoNeb inhalations, Symbicort, albuterol Continue IV Solu-Medrol 60 mg every 6 hours for another 24 hours Empiric antibiotics in the form of azithromycin and completed course of 5-7 days May need to revisit the transplant team at [facility] 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
[2022-09-21 16:57] LABS: Glucose,Whole Blood 287 mg/dL (70-110)
[2022-09-21] MEDS: AZITHROMYCIN 500 MG TAB PO SCH (17:11)
[2022-09-21 20:20] LABS: Glucose,Whole Blood 110 mg/dL (70-110)
[2022-09-21] MEDS: rOPINIRole HCL 4 MG TABLET PO SCH (20:30)
[2022-09-21] MEDS: MONTELUKAST 10 MG TAB PO SCH (20:30)
[2022-09-21] MEDS: MELATONIN 5 MG TABLET PO PRN (20:32)
[2022-09-22] MEDS: methylPREDNISolone SOD SUCCI 125 MG/2 ML VIAL IV SCH ×5 (00:29→23:12)
[2022-09-22] MEDS: HEPARIN SODIUM,PORCINE/PF 5,000 UNIT/0.5 ML SYRINGE SQ SCH ×4 (00:29→23:12)
[2022-09-22] MEDS: ALBUTEROL NEBULIZED 2.5 MG/3 ML INHALATION PRN (03:24)
[2022-09-22 06:02] LABS: Glucose,Whole Blood 248 mg/dL (70-110)
[2022-09-22] MEDS: INSULIN ASPART (NovoLOG) 100 UNIT/ML VIAL SQ SCH ×4 (06:16→20:27)
[2022-09-22] MEDS: SYMBICORT 160-4.5 MCG INHALER INHALATION SCH ×2 (08:24→20:31)
[2022-09-22] MEDS: IPRATROPIUM-ALBUTEROL 3 ML NEB INHALATION SCH ×4 (08:24→20:31)
[2022-09-22] MEDS: MAGNESIUM OXIDE 400 MG TAB PO SCH (08:45)
[2022-09-22] MEDS: FERROUS SULFATE 325 MG TAB PO SCH (08:45)
[2022-09-22] MEDS: THEOPHYLLINE 24 HOUR 400 MG CAP.ER.24H PO SCH (08:46)
[2022-09-22] MEDS: DULoxetine HCL 30 MG CAPSULE.DR PO SCH (08:46)
[2022-09-22] MEDS: LORATADINE 10 MG TAB PO SCH (08:46)
[2022-09-22] MEDS: MELOXICAM 7.5 MG TAB PO SCH (08:46)
[2022-09-22] MEDS: VERAPAMIL SR 120 MG TABLET.ER PO SCH (08:47)
--- NOTE | 2022-09-22 10:33 | P.PN ---
Subjective Progress Note Date: 09/22/22 Principal diagnosis: Sob She was seen today right after she got back from the bedside commode, she was going back to her bed was very short of breath and in distress/diaphoretic. No fevers or chills. Objective - Vital Signs Vital signs: Vital Signs Temp 98.0 F 09/22/22 08:44 Pulse 110 H 09/22/22 08:44 Resp 21 09/22/22 08:44 BP 155/71 09/22/22 08:44 Pulse Ox 97 09/22/22 08:44 FiO2 30 09/22/22 00:24 Intake & Output 09/21/22 09/22/22 09/22/22 18:59 06:59 18:59 Intake Total 476 480 480 Balance 476 480 480 Intake: Oral 476 480 480 Other: # Voids 2 2 - Exam Constitutional: No acute distress, conversant, pleasant Eyes:Anicteric sclerae, moist conjunctiva, no lid-lag, PERRLA, ENMT: Oropharynx clear, no erythema, exudates Neck: Supple, FROM, no masses, or JVD, No carotid bruits, No thyromegaly Lungs: Bilateral wheezing and rhonchi, Clear to percussion, Normal respiratory effort, no accessory muscle use Cardiovascular: Heart regular in rate and rhythm, No murmurs, gallops, or rubs, No peripheral edema Abdominal: Soft, Nontender, no guarding, rebound or rigidity, Normoactive bowel sounds, No hepatomegaly, No splenomegaly, No palpable mass Skin: Normal temperature, tone, texture, turgor, no induration, No subcutaneous nodules, No rash, lesions, No ulcers Extremities: No digital cyanosis, No clubbing, Pedal pulses intact and symmetrical, Radial pulses intact and symmetrical, No calf tenderness Psychiatric: Alert and oriented to person, place and time, appropriate affect, intact judgement Neuro: Muscles Strength 5/5 in all 4 extremities, Sensation to light touch grossly present throughout, Cranial nerves II-XII grossly intact, no focal sensory deficits - Labs CBC & Chem 7: 09/19/22 08:39 09/19/22 08:39 Labs: Abnormal Lab Results - Last 24 Hours (Table) 09/21/22 09/21/22 09/22/22 Range/Units 11:54 16:38 06:00 POC Glucose (mg/dL) 132 H 287 H 248 H (70-110) mg/dL Microbiology - Last 24 Hours (Table) 09/18/22 15:06 Blood Culture - Preliminary Blood No Growth after 72 hours 09/18/22 15:06 Blood Culture - Preliminary Blood No Growth after 72 hours Assessment and Plan Plan: Acute on chronic respiratory failure with hypoxemia and hypercarbia COPD exacerbation -oxygen as needed to keep sats above 92% currently on 4L. -Pulmonology following -DuoNeb's -Continue with steroids -Finished 5 days of azithromycin on 09/22, will start doxycycline and ceftriaxone as she is not getting better, check procal and obtain CXR. -Palliative care consulted Hypertension ADHD Chronic back pain Rheumatoid arthritis -Home medications reviewed and reconciled Patient is full code DVT prophylaxis with heparin 3 times a day
[2022-09-22 11:03] LABS: Basophils % (A) 0 %; Eosinophils % (A) 0 %; HCT 36.1 % (34.0-46.0); HGB 11.2 gm/dL (11.4-16.0); Hypochromasia Marked; Lymphocytes # (A) 0.4 k/uL (1.0-4.8); Lymphocytes % (A) 4 %; MCH 31.3 pg (25.0-35.0); MCHC 31.1 g/dL (31.0-37.0); MCV 100.8 fL (80.0-100.0); Macrocytosis Slight; Monocytes # (A) 0.5 k/uL (0-1.0); Monocytes % (A) 5 %; Neutrophils % (A) 90 %; Platelet Count 332 k/uL (150-450); RBC 3.58 m/uL (3.80-5.40); RDW 14.2 % (11.5-15.5); WBC 10.1 k/uL (3.8-10.6)
--- NOTE | 2022-09-22 11:06 | XR ---
EXAMINATION TYPE: XR chest 1V portable DATE OF EXAM: 09/22/2022 Comparison: 09/18/2022 Clinical History: 67 year-old female shortness of breath Findings: Rightward patient rotation altered and normal cardiomediastinal contours. Patient's chin obscures the medial apices. Low lung volumes. Heart appears mildly enlarged. Mild patchy peripheral lower lung de nsities on both sides. Upper and mid lungs appear clear. Mild hyperinflation. Impression: Limited by rotation and patient's chin being down. Mild cardiomegaly. Suspect underlying COPD. Mild p atchy peripheral basilar densities likely areas of atelectasis. Otherwise, no acute process seen.
[2022-09-22 11:44] LABS: Albumin 3.5 g/dL (3.5-5.0); Magnesium 2.5 mg/dL (1.6-2.3); Potassium 4.5 mmol/L (3.5-5.1); Total Bilirubin 0.3 mg/dL (0.2-1.3); Total Protein 5.9 g/dL (6.3-8.2)
[2022-09-22 11:57] LABS: Glucose,Whole Blood 124 mg/dL (70-110)
[2022-09-22] MEDS: DOXYCYCLINE 100 MG CAP PO SCH ×2 (12:05→20:27)
[2022-09-22 12:07] LABS: Calcium 8.3 mg/dL (8.4-10.2)
--- NOTE | 2022-09-22 15:57 | P.PN ---
Subjective Progress Note Date: 09/22/22 This is a very pleasant 67-year-old female patient with a history of hypertensi on, rheumatoid arthritis, chronic lower extremity edema, attention deficit hyperactivity disorder, chronic back pain, COVID-19 pneumonia, chronic hypoxemic and hypercapnic respiratory failure utilizing oxygen at 4 L at home. She also has a noninvasive positive pressure ventilatory machine for nighttime. She is also noted to have a left upper lobe lung lesion measuring 18 x 13 mm. Based on these findings she was deactivated from the transplant list. Follow-up CAT scan to be performed in September of this year. She follows with Dr. Goodman in our office for the same. She was last discharged for COPD exacerbation on 08/29/2022. She presented here to the emergency room earlier today with c omplaints of increasing shortness of breath, cough and congestion for the past 6 days. His x-ray reveals some right upper lobe linear scarring or atelectasis without change. No congestive heart failure. White count 12.4. Hemoglobin 11.7. Sodium 136. Potassium 4.3. BUN 21. Creatinine 0.72. Glucose 134. Troponin negative 1. She's been initiated on Symbicort, IV Solu-Medrol, DuoNeb inhalations. Empiric antibiotics in the form of azithromycin. She is seen today in consultation in the emergency department. She is currently sitting up on the stretcher. Awake and alert in no acute distress maintaining O2 saturations in the mid 90s on 3 L/m per nasal cannula. She's been afebrile. On today's evaluation of 09/19/2022, the patient is doing well. No altered mentation. No chest pain. No shortness of breath. She does have chronic shortness of breath and acute exacerbation of her chronic COPD is gradually improving. The patient remains on IV Solu-Medrol. The patient had a CAT scan of the chest that was done on 09/18/2022 and this was done to rule out possibility of malignancy. The CAT scan showed a stable left upper lobe 60 mm groundglass pulmonary nodule which has not changed compared to the earlier CAT scan from 08/28/2022. At the same time, the patient scintiscan of the chest showed no evidence of any pneumonia. There was evidence of linear atelectasis/scarring in the right involving the inferior aspect of the right upper lobe along the fissure. No significant change in the overall findings. Left upper lobe pulmonary nodule remains stable. No mediastinal lymphadenopathy. No hemoptysis. No pleurisy. No chest pain. No other complaints and the patient's blood work from today shows a white cell count of 8.9 with a hemoglobin of 11 BUN of 24 creatinine of 0.69 and a sodium level is at 140. On 09/20/2022, the patient is still bronchospastic and wheezy and the patient is slightly worse compared to yesterday. For that reason, we elected to keep the patient over the next 24-48 hours for IV steroid treatment. The patient is still receiving IV Solu-Medrol 60 mg every 6 hours. She remains on Symbicort as maintenance and addition of breath treatments are being also utilizing combination with ipratropium might 4 times a day. The patient on empiric antibiotic coverage with Zithromax. Rest of the medications remain unchanged. No new complaint otherwise. No altered mentation. No chest pain or pleurisy. 09/21/2022, the patient is feeling slightly better. She has no new complaints. She remains on DuoNeb about treatments [id number] and she is also on IV Solu-Medrol. No major side effects from the systemic steroid treatment. The patient is on theophylline also. She is completing a 5 day course of Zithromax 500 mg by mouth daily. No fever. No chills. No significant hyperglycemia. No labs from today. No pleurisy or hemoptysis. 09/22/2022, the patient is gradually improving. We'll keep him IV Solu-Medrol for another 24 hours. No new complaints. She still being treated for an acute COPD exacerbation. Noted the patient has advanced COPD. She is on DuoNeb neb treatments [id number], on Symbicort, theophylline and doxycycline as an empiric antibiotic coverage in combination with IV Rocephin. The labs are s table. Serum bicarbs of 41, BUN 32 with a creatinine of 0.8.ECOG is at 10.3 hemoglobin of 11.2. And a platelet count of 332. Objective - Vital Signs Vital signs: Vital Signs Temp 98.0 F 09/22/22 12:06 Pulse 100 09/22/22 15:48 Resp 21 09/22/22 14:00 BP 136/69 09/22/22 12:06 Pulse Ox 96 09/22/22 12:06 FiO2 30 09/22/22 00:24 Intake & Output 09/21/22 09/22/22 09/22/22 18:59 06:59 18:59 Intake Total 712 137 7344 Balance 893 361 5571 Intake: Oral 364 538 8655 Other: # Voids 2 2 - Exam GENERAL EXAM: Alert, pleasant 67-year-old female patient, on 3 L nasal cannula, fairly comfortable in no apparent distress. 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 Normocephalic. EYES: Normal reaction of pupils, equal size. NOSE: Clear with pink turbinates. THROAT: No erythema or exudates. NECK: No masses, no JVD. CHEST: No chest wall deformity. LUNGS: Equal air entry with bilateral end expiratory wheeze, diminished. CVS: S1 and S2 normal with no audible murmur, regular rhythm. ABDOMEN: No hepatosplenomegaly, normal bowel sounds, no guarding or rigidity. SPINE: No scoliosis or deformity SKIN: No rashes CENTRAL NERVOUS SYSTEM: No focal deficits, tone is normal in all 4 extremities. EXTREMITIES: There is no peripheral edema. No clubbing, no cyanosis. Peripheral pulses are intact. - Labs CBC & Chem 7: 09/22/22 10:37 09/22/22 10:37 Labs: Abnormal Lab Results - Last 24 Hours (Table) 09/21/22 09/22/22 09/22/22 Range/Units 16:38 06:00 10:37 RBC 3.58 L (3.80-5.40) m/uL Hgb 11.2 L (11.4-16.0) gm/dL MCV 100.8 H (80.0-100.0) fL Neutrophils # 9.0 H (1.3-7.7) k/uL Lymphocytes # 0.4 L (1.0-4.8) k/uL Carbon Dioxide (22-30) mmol/L BUN (7-17) mg/dL Glucose (74-99) mg/dL POC Glucose (mg/dL) 287 H 248 H (70-110) mg/dL Calcium (8.4-10.2) mg/dL Magnesium (1.6-2.3) mg/dL Total Protein (6.3-8.2) g/dL 09/22/22 09/22/22 Range/Units 10:37 11:55 RBC (3.80-5.40) m/uL Hgb (11.4-16.0) gm/dL MCV (80.0-100.0) fL Neutrophils # (1.3-7.7) k/uL Lymphocytes # (1.0-4.8) k/uL Carbon Dioxide 41 H* (22-30) mmol/L BUN 32 H (7-17) mg/dL Glucose 164 H (74-99) mg/dL POC Glucose (mg/dL) 124 H (70-110) mg/dL Calcium 8.3 L (8.4-10.2) mg/dL Magnesium 2.5 H (1.6-2.3) mg/dL Total Protein 5.9 L (6.3-8.2) g/dL Microbiology - Last 24 Hours (Table) 09/18/22 15:06 Blood Culture - Preliminary Blood No Growth after 72 hours 09/18/22 15:06 Blood Culture - Preliminary Blood No Growth after 72 hours Assessment and Plan Assessment: Acute exacerbation of chronic obstructive pulmonary disease, no evidence of pneumonia. Clinically improving. CAT scan of the chest showed no evidence of any pneumonia. Stable left upper lobe groundglass pulmonary nodule measuring 16 mm in size. Acute on chronic hypoxemic respiratory failure secondary to above, does have home oxygen at 4 L/m per nasal cannula Acute on chronic hypercapnic respiratory failure secondary to above, on BiPAP 10/03 in the outpatient setting History of a left upper lobe lesion measuring 18 x 13 mm in size. Being followed in the outpatient setting History of CoVID in 19 pneumonia History of chronic lower extremity edema Hypertension Attention deficit hyperactivity disorder Rheumatoid arthritis Chronic back pain Former smoker Plan: Continue same treatment still symptomatic and bronchospastic and wheezy , claims that she is slightly improved compared to yesterday Continue same treatment Continue DuoNeb inhalations, Symbicort, albuterol Continue IV Solu-Medrol 60 mg every 6 hours for another 24 hours Empiric antibiotics in the form of Rocephin and doxycycline We'll start the patient on a prednisone burst taper as of tomorrow
[2022-09-22 16:36] LABS: Glucose,Whole Blood 245 mg/dL (70-110)
[2022-09-22 20:05] LABS: Glucose,Whole Blood 224 mg/dL (70-110)
[2022-09-22] MEDS: rOPINIRole HCL 4 MG TABLET PO SCH (20:27)
[2022-09-22] MEDS: MONTELUKAST 10 MG TAB PO SCH (20:27)
[2022-09-23] MEDS: ALBUTEROL NEBULIZED 2.5 MG/3 ML INHALATION PRN ×2 (00:06→03:08)
[2022-09-23] MEDS: MELATONIN 5 MG TABLET PO PRN ×2 (02:05→20:08)
[2022-09-23] MEDS: ALPRAZolam 0.5 MG TAB PO PRN ×2 (02:05→20:09)
[2022-09-23] MEDS: methylPREDNISolone SOD SUCCI 125 MG/2 ML VIAL IV SCH ×4 (06:07→23:03)
[2022-09-23 06:08] LABS: Glucose,Whole Blood 138 mg/dL (70-110)
[2022-09-23] MEDS: INSULIN ASPART (NovoLOG) 100 UNIT/ML VIAL SQ SCH ×4 (06:08→20:08)
[2022-09-23] MEDS: SYMBICORT 160-4.5 MCG INHALER INHALATION SCH ×2 (07:48→19:23)
[2022-09-23] MEDS: IPRATROPIUM-ALBUTEROL 3 ML NEB INHALATION SCH ×4 (07:48→19:23)
[2022-09-23] MEDS: MAGNESIUM OXIDE 400 MG TAB PO SCH (10:24)
[2022-09-23] MEDS: HEPARIN SODIUM,PORCINE/PF 5,000 UNIT/0.5 ML SYRINGE SQ SCH ×3 (10:25→23:03)
[2022-09-23] MEDS: DULoxetine HCL 30 MG CAPSULE.DR PO SCH (10:25)
[2022-09-23] MEDS: THEOPHYLLINE 24 HOUR 400 MG CAP.ER.24H PO SCH (10:25)
[2022-09-23] MEDS: FERROUS SULFATE 325 MG TAB PO SCH (10:25)
[2022-09-23] MEDS: LORATADINE 10 MG TAB PO SCH (10:25)
[2022-09-23] MEDS: MELOXICAM 7.5 MG TAB PO SCH (10:25)
[2022-09-23] MEDS: VERAPAMIL SR 120 MG TABLET.ER PO SCH (10:26)
[2022-09-23] MEDS: DOXYCYCLINE 100 MG CAP PO SCH ×2 (10:26→20:43)
--- NOTE | 2022-09-23 11:32 | P.PN ---
Subjective Progress Note Date: 09/23/22 Principal diagnosis: Sob Patient states that she started to feel better. Her breathing has improved compared to yesterday. No fevers or chills, no nausea or vomiting. No overnig ht events. Objective - Vital Signs Vital signs: Vital Signs Temp 98.2 F 09/23/22 10: Pulse 103 H 09/23/22 10:26 Resp 18 09/23/22 10:26 BP 165/78 09/23/22 10: Pulse Ox 96 09/23/22 10: FiO2 30 09/23/22 00:06 Intake & Output 09/22/22 09/23/22 09/23/22 18:59 06:59 18:59 Intake Total 1196 358 Balance 1196 358 Intake: Oral 1196 358 Other: # Voids 2 - Exam Constitutional: No acute distress, conversant, pleasant Eyes:Anicteric sclerae, moist conjunctiva, no lid-lag, PERRLA, ENMT: Oropharynx clear, no erythema, exudates Neck: Supple, FROM, no masses, or JVD, No carotid bruits, No thyromegaly Lungs: Bilateral wheezing and rhonchi, Clear to percussion, Normal respiratory effort, no accessory muscle use Cardiovascular: Heart regular in rate and rhythm, No murmurs, gallops, or rubs, No peripheral edema Abdominal: Soft, Nontender, no guarding, rebound or rigidity, Normoactive bowel sounds, No hepatomegaly, No splenomegaly, No palpable mass Skin: Normal temperature, tone, texture, turgor, no induration, No subcutaneous nodules, No rash, lesions, No ulcers Extremities: No digital cyanosis, No clubbing, Pedal pulses intact and symmetrical, Radial pulses intact and symmetrical, No calf tenderness Psychiatric: Alert and oriented to person, place and time, appropriate affect, intact judgement Neuro: Muscles Strength 5/5 in all 4 extremities, Sensation to light touch grossly present throughout, Cranial nerves II-XII grossly intact, no focal sensory deficits - Labs CBC & Chem 7: 09/22/22 10:37 09/22/22 10:37 Labs: Abnormal Lab Results - Last 24 Hours (Table) 09/22/22 09/22/22 09/22/22 Range/Units 10:37 11:55 16:34 Carbon Dioxide 41 H* (22-30) mmol/L BUN 32 H (7-17) mg/dL Glucose 164 H (74-99) mg/dL POC Glucose (mg/dL) 124 H 245 H (70-110) mg/dL Calcium 8.3 L (8.4-10.2) mg/dL Magnesium 2.5 H (1.6-2.3) mg/dL Total Protein 5.9 L (6.3-8.2) g/dL 09/22/22 09/23/22 Range/Units 20:04 06:07 Carbon Dioxide (22-30) mmol/L BUN (7-17) mg/dL Glucose (74-99) mg/dL POC Glucose (mg/dL) 224 H 138 H (70-110) mg/dL Calcium (8.4-10.2) mg/dL Magnesium (1.6-2.3) mg/dL Total Protein (6.3-8.2) g/dL Microbiology - Last 24 Hours (Table) 09/18/22 15:06 Blood Culture - Preliminary Blood No Growth after 96 hours 09/18/22 15:06 Blood Culture - Preliminary Blood No Growth after 96 hours Assessment and Plan Plan: Acute on chronic respiratory failure with hypoxemia and hypercarbia COPD exacerbation -oxygen as needed to keep sats above 92% currently on 4L. -Pulmonology following -DuoNeb's -Continue with steroids -Finished 5 days of azithromycin on 09/22, continue doxycycline and ceftriaxone as she was not getting better, procal and CXR negative. -Palliative care consulted Hypertension ADHD Chronic back pain Rheumatoid arthritis -Home medications reviewed and reconciled Patient is full code DVT prophylaxis with heparin 3 times a day
[2022-09-23 11:48] LABS: Glucose,Whole Blood 248 mg/dL (70-110)
--- NOTE | 2022-09-23 15:39 | P.PN ---
Subjective Progress Note Date: 09/23/22 This is a very pleasant 67-year-old female patient with a history of hypertensi on, rheumatoid arthritis, chronic lower extremity edema, attention deficit hyperactivity disorder, chronic back pain, COVID-19 pneumonia, chronic hypoxemic and hypercapnic respiratory failure utilizing oxygen at 4 L at home. She also has a noninvasive positive pressure ventilatory machine for nighttime. She is also noted to have a left upper lobe lung lesion measuring 18 x 13 mm. Based on these findings she was deactivated from the transplant list. Follow-up CAT scan to be performed in September of this year. She follows with Dr. Goodman in our office for the same. She was last discharged for COPD exacerbation on 08/29/2022. She presented here to the emergency room earlier today with c omplaints of increasing shortness of breath, cough and congestion for the past 6 days. His x-ray reveals some right upper lobe linear scarring or atelectasis without change. No congestive heart failure. White count 12.4. Hemoglobin 11.7. Sodium 136. Potassium 4.3. BUN 21. Creatinine 0.72. Glucose 134. Troponin negative 1. She's been initiated on Symbicort, IV Solu-Medrol, DuoNeb inhalations. Empiric antibiotics in the form of azithromycin. She is seen today in consultation in the emergency department. She is currently sitting up on the stretcher. Awake and alert in no acute distress maintaining O2 saturations in the mid 90s on 3 L/m per nasal cannula. She's been afebrile. On today's evaluation of 09/19/2022, the patient is doing well. No altered mentation. No chest pain. No shortness of breath. She does have chronic shortness of breath and acute exacerbation of her chronic COPD is gradually improving. The patient remains on IV Solu-Medrol. The patient had a CAT scan of the chest that was done on 09/18/2022 and this was done to rule out possibility of malignancy. The CAT scan showed a stable left upper lobe 60 mm groundglass pulmonary nodule which has not changed compared to the earlier CAT scan from 08/28/2022. At the same time, the patient scintiscan of the chest showed no evidence of any pneumonia. There was evidence of linear atelectasis/scarring in the right involving the inferior aspect of the right upper lobe along the fissure. No significant change in the overall findings. Left upper lobe pulmonary nodule remains stable. No mediastinal lymphadenopathy. No hemoptysis. No pleurisy. No chest pain. No other complaints and the patient's blood work from today shows a white cell count of 8.9 with a hemoglobin of 11 BUN of 24 creatinine of 0.69 and a sodium level is at 140. On 09/20/2022, the patient is still bronchospastic and wheezy and the patient is slightly worse compared to yesterday. For that reason, we elected to keep the patient over the next 24-48 hours for IV steroid treatment. The patient is still receiving IV Solu-Medrol 60 mg every 6 hours. She remains on Symbicort as maintenance and addition of breath treatments are being also utilizing combination with ipratropium might 4 times a day. The patient on empiric antibiotic coverage with Zithromax. Rest of the medications remain unchanged. No new complaint otherwise. No altered mentation. No chest pain or pleurisy. 09/21/2022, the patient is feeling slightly better. She has no new complaints. She remains on DuoNeb about treatments [id number] and she is also on IV Solu-Medrol. No major side effects from the systemic steroid treatment. The patient is on theophylline also. She is completing a 5 day course of Zithromax 500 mg by mouth daily. No fever. No chills. No significant hyperglycemia. No labs from today. No pleurisy or hemoptysis. 09/22/2022, the patient is gradually improving. We'll keep him IV Solu-Medrol for another 24 hours. No new complaints. She still being treated for an acute COPD exacerbation. Noted the patient has advanced COPD. She is on DuoNeb neb treatments [id number], on Symbicort, theophylline and doxycycline as an empiric antibiotic coverage in combination with IV Rocephin. The labs are s table. Serum bicarbs of 41, BUN 32 with a creatinine of 0.8.ECOG is at 10.3 hemoglobin of 11.2. And a platelet count of 332. 09/23/2022, the patient was found to be lethargic and somewhat confused this morning. By the time I arrived to her in this afternoon, the patient was feeling better and she is not having any specific complaints. No chest pain. On her blood work, she was noted to be quite alkalotic and the patient's blood work showed a serum bicarb of 41 and a sodium level was at 141 with a potassium level of 4.5. This is blood work from yesterday. The discomfort of 10.1 with a hemoglobin of 11.2. No blood work was done today. Her chest x-ray from yesterday showed mild cardiomegaly and underlying COPD with mild patchy basilar infiltrate/atelectasis. No acute process was seen. The patient remains on albuterol rescue with [id number]. She was given 2 doses of Diamox to counteract her metabolic alkalosis. She remains on IV Solu-Medrol. Objective - Vital Signs Vital signs: Vital Signs Temp 98.0 F 09/23/22 12:31 Pulse 92 09/23/22 15:24 Resp 25 H 09/23/22 12:31 BP 147/74 09/23/22 12:31 Pulse Ox 93 L 09/23/22 12:31 FiO2 30 09/23/22 11:26 Intake & Output 09/22/22 09/23/22 09/23/22 18:59 06:59 18:59 Intake Total 1196 716 Balance 1196 716 Intake: Oral 1196 716 Other: # Voids 2 - Exam GENERAL EXAM: Alert, pleasant 67-year-old female patient, on 3 L nasal cannula, fairly comfortable in no apparent distress. 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 Normocephalic. EYES: Normal reaction of pupils, equal size. NOSE: Clear with pink turbinates. THROAT: No erythema or exudates. NECK: No masses, no JVD. CHEST: No chest wall deformity. LUNGS: Equal air entry with bilateral end expiratory wheeze, diminished. CVS: S1 and S2 normal with no audible murmur, regular rhythm. ABDOMEN: No hepatosplenomegaly, normal bowel sounds, no guarding or rigidity. SPINE: No scoliosis or deformity SKIN: No rashes CENTRAL NERVOUS SYSTEM: No focal deficits, tone is normal in all 4 extremities. EXTREMITIES: There is no peripheral edema. No clubbing, no cyanosis. Peripheral pulses are intact. - Labs CBC & Chem 7: 09/22/22 10:37 09/22/22 10:37 Labs: Abnormal Lab Results - Last 24 Hours (Table) 09/22/22 09/22/22 09/23/22 Range/Units 16:34 20:04 06:07 POC Glucose (mg/dL) 245 H 224 H 138 H (70-110) mg/dL 09/23/22 Range/Units 11:47 POC Glucose (mg/dL) 248 H (70-110) mg/dL Microbiology - Last 24 Hours (Table) 09/18/22 15:06 Blood Culture - Preliminary Blood No Growth after 96 hours 09/18/22 15:06 Blood Culture - Preliminary Blood No Growth after 96 hours Assessment and Plan Assessment: Acute exacerbation of chronic obstructive pulmonary disease, no evidence of pneumonia. Clinically improving. CAT scan of the chest showed no evidence of any pneumonia. Stable left upper lobe groundglass pulmonary nodule measuring 16 mm in size. Acute on chronic hypoxemic respiratory failure secondary to above, does have home oxygen at 4 L/m per nasal cannula Acute on chronic hypercapnic respiratory failure secondary to above, on BiPAP 10/03 in the outpatient setting History of a left upper lobe lesion measuring 18 x 13 mm in size. Being followed in the outpatient setting History of CoVID in 19 pneumonia History of chronic lower extremity edema Hypertension Attention deficit hyperactivity disorder Rheumatoid arthritis Chronic back pain Former smoker Plan: Continue same treatment Slightly metabolically alkalotic and the patient is going to be given 2 doses of Diamox still symptomatic and bronchospastic and wheezy , chronic Continue same treatment Continue DuoNeb inhalations, Symbicort, albuterol Continue IV Solu-Medrol 60 mg every 6 hours for another 24 hours Empiric antibiotics in the form of Rocephin and doxycycline Monitor mental status Repeat electrolytes in the morning We'll continue to follow
[2022-09-23 16:55] LABS: Glucose,Whole Blood 145 mg/dL (70-110)
[2022-09-23 19:50] LABS: Glucose,Whole Blood 256 mg/dL (70-110)
[2022-09-23] MEDS: MONTELUKAST 10 MG TAB PO SCH (20:09)
[2022-09-23] MEDS: rOPINIRole HCL 4 MG TABLET PO SCH (20:43)
[2022-09-24] MEDS: ALBUTEROL NEBULIZED 2.5 MG/3 ML INHALATION PRN (00:07)
[2022-09-24 05:50] LABS: Glucose,Whole Blood 115 mg/dL (70-110)
[2022-09-24] MEDS: methylPREDNISolone SOD SUCCI 125 MG/2 ML VIAL IV SCH ×2 (05:52→12:04)
[2022-09-24] MEDS: INSULIN ASPART (NovoLOG) 100 UNIT/ML VIAL SQ SCH ×4 (05:53→20:12)
[2022-09-24] MEDS: SYMBICORT 160-4.5 MCG INHALER INHALATION SCH ×2 (07:55→19:41)
[2022-09-24] MEDS: IPRATROPIUM-ALBUTEROL 3 ML NEB INHALATION SCH ×4 (07:55→19:41)
[2022-09-24] MEDS: FERROUS SULFATE 325 MG TAB PO SCH (09:12)
[2022-09-24] MEDS: MELOXICAM 7.5 MG TAB PO SCH (09:12)
[2022-09-24] MEDS: DOXYCYCLINE 100 MG CAP PO SCH ×2 (09:12→20:12)
[2022-09-24] MEDS: THEOPHYLLINE 24 HOUR 400 MG CAP.ER.24H PO SCH (09:12)
[2022-09-24] MEDS: MAGNESIUM OXIDE 400 MG TAB PO SCH (09:12)
[2022-09-24] MEDS: DULoxetine HCL 30 MG CAPSULE.DR PO SCH (09:12)
[2022-09-24] MEDS: VERAPAMIL SR 120 MG TABLET.ER PO SCH (09:12)
[2022-09-24] MEDS: HEPARIN SODIUM,PORCINE/PF 5,000 UNIT/0.5 ML SYRINGE SQ SCH ×2 (09:13→17:25)
[2022-09-24] MEDS: LORATADINE 10 MG TAB PO SCH (09:13)
[2022-09-24 11:38] LABS: Glucose,Whole Blood 221 mg/dL (70-110)
--- NOTE | 2022-09-24 12:17 | P.PN ---
Subjective Progress Note Date: 09/24/22 Principal diagnosis: Sob Patient states that overall she feels less than 50% better compared to when she came in. Still having shortness of breath and wheezing especially with am bulation. She is tachycardic as well. Objective - Vital Signs Vital signs: Vital Signs Temp 97.6 F 09/24/22 12:08 Pulse 96 09/24/22 12:08 Resp 25 H 09/24/22 12:08 BP 144/86 09/24/22 12:08 Pulse Ox 96 09/24/22 12:08 FiO2 30 09/24/22 07:56 Intake & Output 09/23/22 09/24/22 09/24/22 18:59 06:59 18:59 Intake Total 716 358 Balance 716 358 Intake: Oral 716 358 Other: # Voids 2 1 - Exam Constitutional: No acute distress, conversant, pleasant Eyes:Anicteric sclerae, moist conjunctiva, no lid-lag, PERRLA, ENMT: Oropharynx clear, no erythema, exudates Neck: Supple, FROM, no masses, or JVD, No carotid bruits, No thyromegaly Lungs: Bilateral wheezing and rhonchi, Clear to percussion, Normal respiratory effort, no accessory muscle use Cardiovascular: Heart regular in rate and rhythm, No murmurs, gallops, or rubs, No peripheral edema Abdominal: Soft, Nontender, no guarding, rebound or rigidity, Normoactive bowel sounds, No hepatomegaly, No splenomegaly, No palpable mass Skin: Normal temperature, tone, texture, turgor, no induration, No subcutaneous nodules, No rash, lesions, No ulcers Extremities: No digital cyanosis, No clubbing, Pedal pulses intact and symmetrical, Radial pulses intact and symmetrical, No calf tenderness Psychiatric: Alert and oriented to person, place and time, appropriate affect, intact judgement Neuro: Muscles Strength 5/5 in all 4 extremities, Sensation to light touch grossly present throughout, Cranial nerves II-XII grossly intact, no focal sensory deficits - Labs CBC & Chem 7: 09/22/22 10:37 09/22/22 10:37 Labs: Abnormal Lab Results - Last 24 Hours (Table) 09/23/22 09/23/22 09/24/22 Range/Units 16:54 19:48 05:49 POC Glucose (mg/dL) 145 H 256 H 115 H (70-110) mg/dL 09/24/22 Range/Units 11:37 POC Glucose (mg/dL) 221 H (70-110) mg/dL Microbiology - Last 24 Hours (Table) 09/18/22 15:06 Blood Culture - Preliminary Blood No Growth after 120 hours 09/18/22 15:06 Blood Culture - Preliminary Blood No Growth after 120 hours Assessment and Plan Plan: Acute on chronic respiratory failure with hypoxemia and hypercarbia COPD exacerbation -oxygen as needed to keep sats above 92% currently on 4L. -Pulmonology following -DuoNeb's -Continue with steroids -Finished 5 days of azithromycin on 09/22, restarted on antibiotics doxycycline and ceftriaxone as she was not getting better, procal and CXR negative. -Palliative care consulted Hypertension ADHD Chronic back pain Rheumatoid arthritis -Home medications reviewed and reconciled Patient is full code DVT prophylaxis with heparin 3 times a day Anticipated discharge: 2-4 days Disposition likely home
--- NOTE | 2022-09-24 12:24 | P.PN ---
Subjective Progress Note Date: 09/24/22 This is a very pleasant 67-year-old female patient with a history of hypertensi on, rheumatoid arthritis, chronic lower extremity edema, attention deficit hyperactivity disorder, chronic back pain, COVID-19 pneumonia, chronic hypoxemic and hypercapnic respiratory failure utilizing oxygen at 4 L at home. She also has a noninvasive positive pressure ventilatory machine for nighttime. She is also noted to have a left upper lobe lung lesion measuring 18 x 13 mm. Based on these findings she was deactivated from the transplant list. Follow-up CAT scan to be performed in September of this year. She follows with Dr. Goodman in our office for the same. She was last discharged for COPD exacerbation on 08/29/2022. She presented here to the emergency room earlier today with c omplaints of increasing shortness of breath, cough and congestion for the past 6 days. His x-ray reveals some right upper lobe linear scarring or atelectasis without change. No congestive heart failure. White count 12.4. Hemoglobin 11.7. Sodium 136. Potassium 4.3. BUN 21. Creatinine 0.72. Glucose 134. Troponin negative 1. She's been initiated on Symbicort, IV Solu-Medrol, DuoNeb inhalations. Empiric antibiotics in the form of azithromycin. She is seen today in consultation in the emergency department. She is currently sitting up on the stretcher. Awake and alert in no acute distress maintaining O2 saturations in the mid 90s on 3 L/m per nasal cannula. She's been afebrile. On today's evaluation of 09/19/2022, the patient is doing well. No altered mentation. No chest pain. No shortness of breath. She does have chronic shortness of breath and acute exacerbation of her chronic COPD is gradually improving. The patient remains on IV Solu-Medrol. The patient had a CAT scan of the chest that was done on 09/18/2022 and this was done to rule out possibility of malignancy. The CAT scan showed a stable left upper lobe 60 mm groundglass pulmonary nodule which has not changed compared to the earlier CAT scan from 08/28/2022. At the same time, the patient scintiscan of the chest showed no evidence of any pneumonia. There was evidence of linear atelectasis/scarring in the right involving the inferior aspect of the right upper lobe along the fissure. No significant change in the overall findings. Left upper lobe pulmonary nodule remains stable. No mediastinal lymphadenopathy. No hemoptysis. No pleurisy. No chest pain. No other complaints and the patient's blood work from today shows a white cell count of 8.9 with a hemoglobin of 11 BUN of 24 creatinine of 0.69 and a sodium level is at 140. On 09/20/2022, the patient is still bronchospastic and wheezy and the patient is slightly worse compared to yesterday. For that reason, we elected to keep the patient over the next 24-48 hours for IV steroid treatment. The patient is still receiving IV Solu-Medrol 60 mg every 6 hours. She remains on Symbicort as maintenance and addition of breath treatments are being also utilizing combination with ipratropium might 4 times a day. The patient on empiric antibiotic coverage with Zithromax. Rest of the medications remain unchanged. No new complaint otherwise. No altered mentation. No chest pain or pleurisy. 09/21/2022, the patient is feeling slightly better. She has no new complaints. She remains on DuoNeb about treatments [id number] and she is also on IV Solu-Medrol. No major side effects from the systemic steroid treatment. The patient is on theophylline also. She is completing a 5 day course of Zithromax 500 mg by mouth daily. No fever. No chills. No significant hyperglycemia. No labs from today. No pleurisy or hemoptysis. 09/22/2022, the patient is gradually improving. We'll keep him IV Solu-Medrol for another 24 hours. No new complaints. She still being treated for an acute COPD exacerbation. Noted the patient has advanced COPD. She is on DuoNeb neb treatments [id number], on Symbicort, theophylline and doxycycline as an empiric antibiotic coverage in combination with IV Rocephin. The labs are s table. Serum bicarbs of 41, BUN 32 with a creatinine of 0.8.ECOG is at 10.3 hemoglobin of 11.2. And a platelet count of 332. 09/23/2022, the patient was found to be lethargic and somewhat confused this morning. By the time I arrived to her in this afternoon, the patient was feeling better and she is not having any specific complaints. No chest pain. On her blood work, she was noted to be quite alkalotic and the patient's blood work showed a serum bicarb of 41 and a sodium level was at 141 with a potassium level of 4.5. This is blood work from yesterday. The discomfort of 10.1 with a hemoglobin of 11.2. No blood work was done today. Her chest x-ray from yesterday showed mild cardiomegaly and underlying COPD with mild patchy basilar infiltrate/atelectasis. No acute process was seen. The patient remains on albuterol rescue with [id number]. She was given 2 doses of Diamox to counteract her metabolic alkalosis. She remains on IV Solu-Medrol. On 09 24 2022, the patient is doing well. She is awake and alert. No new complaints otherwise for now. No chest pain. She is chronically short of breath bronchospastic and wheezy. She remains on IV Solu-Medrol. She remains on bronchodilators. The patient is moving all 4 extremities without any limitation. No altered mentation. No significant encephalopathy on today's evaluation. Objective - Vital Signs Vital signs: Vital Signs Temp 97.6 F 09/24/22 12:08 Pulse 96 09/24/22 12:08 Resp 25 H 09/24/22 12:08 BP 144/86 09/24/22 12:08 Pulse Ox 96 09/24/22 12:08 FiO2 30 09/24/22 07:56 Intake & Output 09/23/22 09/24/22 09/24/22 18:59 06:59 18:59 Intake Total 716 358 Balance 716 358 Intake: Oral 716 358 Other: # Voids 2 1 - Exam GENERAL EXAM: Alert, pleasant 67-year-old female patient, on 3 L nasal cannula, fairly comfortable in no apparent distress. 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 Normocephalic. EYES: Normal reaction of pupils, equal size. NOSE: Clear with pink turbinates. THROAT: No erythema or exudates. NECK: No masses, no JVD. CHEST: No chest wall deformity. LUNGS: Equal air entry with bilateral end expiratory wheeze, diminished. CVS: S1 and S2 normal with no audible murmur, regular rhythm. ABDOMEN: No hepatosplenomegaly, normal bowel sounds, no guarding or rigidity. SPINE: No scoliosis or deformity SKIN: No rashes CENTRAL NERVOUS SYSTEM: No focal deficits, tone is normal in all 4 extremities. EXTREMITIES: There is no peripheral edema. No clubbing, no cyanosis. Peripheral pulses are intact. - Labs CBC & Chem 7: 09/22/22 10:37 09/22/22 10:37 Labs: Abnormal Lab Results - Last 24 Hours (Table) 09/23/22 09/23/22 09/24/22 Range/Units 16:54 19:48 05:49 POC Glucose (mg/dL) 145 H 256 H 115 H (70-110) mg/dL 09/24/22 Range/Units 11:37 POC Glucose (mg/dL) 221 H (70-110) mg/dL Microbiology - Last 24 Hours (Table) 09/18/22 15:06 Blood Culture - Preliminary Blood No Growth after 120 hours 09/18/22 15:06 Blood Culture - Preliminary Blood No Growth after 120 hours Assessment and Plan Assessment: Acute exacerbation of chronic obstructive pulmonary disease, no evidence of pneumonia. Clinically improving. CAT scan of the chest showed no evidence of any pneumonia. Stable left upper lobe groundglass pulmonary nodule measuring 16 mm in size. Acute on chronic hypoxemic respiratory failure secondary to above, does have home oxygen at 4 L/m per nasal cannula Acute on chronic hypercapnic respiratory failure secondary to above, on BiPAP 10/03 in the outpatient setting History of a left upper lobe lesion measuring 18 x 13 mm in size. Being followed in the outpatient setting History of CoVID in 19 pneumonia History of chronic lower extremity edema Hypertension Attention deficit hyperactivity disorder Rheumatoid arthritis Chronic back pain Former smoker Plan: Continue same treatment Repeat electrolytes today Discontinue the IV Solu-Medrol and start the patient on a prednisone burst taper starting with 40 mg. The first dose to be given today Given 2 doses of Diamox yesterday. We'll repeat electrolytes. Continue DuoNeb inhalations, Symbicort, albuterol Continue IV Solu-Medrol 60 mg every 6 hours for another 24 hours Empiric antibiotics in the form of Rocephin and doxycycline Monitor mental status We'll continue to follow
[2022-09-24 13:44] LABS: Albumin 3.8 g/dL (3.5-5.0); Calcium 8.5 mg/dL (8.4-10.2); Total Bilirubin 0.5 mg/dL (0.2-1.3); Total Protein 6.5 g/dL (6.3-8.2)
[2022-09-24 13:45] LABS: Potassium 4.8 mmol/L (3.5-5.1)
[2022-09-24 16:34] LABS: Glucose,Whole Blood 100 mg/dL (70-110)
[2022-09-24] MEDS: predniSONE 20 MG TAB PO SCH (17:25)
[2022-09-24 20:06] LABS: Glucose,Whole Blood 291 mg/dL (70-110)
[2022-09-24] MEDS: MONTELUKAST 10 MG TAB PO SCH (20:11)
[2022-09-24] MEDS: rOPINIRole HCL 4 MG TABLET PO SCH (20:12)
[2022-09-25] MEDS: HEPARIN SODIUM,PORCINE/PF 5,000 UNIT/0.5 ML SYRINGE SQ SCH ×4 (00:01→23:46)
[2022-09-25] MEDS: ALBUTEROL NEBULIZED 2.5 MG/3 ML INHALATION PRN ×2 (01:05→23:24)
[2022-09-25 06:22] LABS: Glucose,Whole Blood 133 mg/dL (70-110)
[2022-09-25] MEDS: INSULIN ASPART (NovoLOG) 100 UNIT/ML VIAL SQ SCH ×4 (06:38→20:34)
[2022-09-25] MEDS: SYMBICORT 160-4.5 MCG INHALER INHALATION SCH ×2 (08:10→19:30)
[2022-09-25] MEDS: IPRATROPIUM-ALBUTEROL 3 ML NEB INHALATION SCH ×4 (08:10→19:30)
[2022-09-25] MEDS: LORATADINE 10 MG TAB PO SCH (08:41)
[2022-09-25] MEDS: MAGNESIUM OXIDE 400 MG TAB PO SCH (08:41)
[2022-09-25] MEDS: DULoxetine HCL 30 MG CAPSULE.DR PO SCH (08:41)
[2022-09-25] MEDS: predniSONE 20 MG TAB PO SCH (08:41)
[2022-09-25] MEDS: FERROUS SULFATE 325 MG TAB PO SCH (08:41)
[2022-09-25] MEDS: ALPRAZolam 0.5 MG TAB PO PRN (08:41)
[2022-09-25] MEDS: MELOXICAM 7.5 MG TAB PO SCH (08:42)
[2022-09-25] MEDS: DOXYCYCLINE 100 MG CAP PO SCH ×2 (08:42→19:49)
[2022-09-25] MEDS: VERAPAMIL SR 120 MG TABLET.ER PO SCH (08:42)
[2022-09-25] MEDS: THEOPHYLLINE 24 HOUR 400 MG CAP.ER.24H PO SCH (08:42)
[2022-09-25 09:34] VITALS: BMI 33.0
[2022-09-25 11:59] LABS: Glucose,Whole Blood 138 mg/dL (70-110)
--- NOTE | 2022-09-25 13:00 | P.PN ---
Subjective Progress Note Date: 09/25/22 The patient is a 67 year old woman with past medical history of hypertension, rheumatoid arthritis, chronic lower extremity edema, attention deficit hyperactivity disorder, chronic back pain, COVID-19 pneumonia, chronic hypoxemic and hypercapnic respiratory failure utilizing oxygen at 4 L at home and she also has a noninvasive positive pressure ventilatory machine for nighttime. She also has end stage COPD with chronic respiratory failure. She presented to the emergency department on 09/18/22 for evaluation of shortness of breath. Patient says that she is chronically dyspneic at baseline, however the last couple days she's noticed increasing gradually shortness of breath. She also reports a coug h with minimal sputum production. She denied having any fevers, but reports chills. She reports some nausea, but no vomiting. She denies syncope, palpitations, chest pain, fevers, abdominal pain, constipation, diarrhea, numbness of extremities. She does report generalized weakness. Chest x-ray sh ows right upper lobe linear scarring without change when compared to prior. The patient She is also noted to have a left upper lobe lung lesion measuring 18 x 13 mm. Based on these findings she was deactivated from the transplant list. Follow-up CAT scan to be performed in September of this year. She follows with Dr. Goodman in our office for the same. She was last discharged for COPD exacerbation on 08/29/2022. She presented here to the emergency room earlier today with complaints of increasing shortness of breath, cough and congestion for the past 6 days. His x-ray reveals some right upper lobe linear scarring or atelectasis without change. No congestive heart failure. 09/19 Education provided regarding the trajectory of her COPD. The patient st ates she was on the lung transplant list and is a patient of Dr. Goodman'mason. She was taken off the transplant list due to a concern for malignancy to her left upper lobe. Per pulmonary's note, noted to have a left upper lobe lung lesion measuring 18 x 13 mm. The patient had a CT scan of the chest that was done on 09/18/2022 and this was done to rule out possibility of malignancy. The CT scan showed a stable left upper lobe 60 mm groundglass pulmonary nodule which has not changed compared to the earlier CT scan from 08/28/2022. At the same time, the patient CT scan of the chest showed no evidence of any pneumonia. There was evidence of linear atelectasis/scarring in the right involving the inferior aspect of the right upper lobe along the fissure. No significant change in the overall findings. Left upper lobe pulmonary nodule remains stable. No mediastinal lymphadenopathy. Information regarding palliative care philosophies and services provided. The patient understands that she can still receive aggressive treatment for her chronic illnesses while in palliative care. She will continue to see Dr. Alonzo and is hopeful she can get back on the transplant list. She would like to receive outpatient palliative care in attempt to help control her symptoms at home and prevent frequent hospital admissions. Objective - Vital Signs Vital signs: Vital Signs Temp 98.1 F 09/25/22 08:00 Pulse 92 09/25/22 12:01 Resp 18 09/25/22 08:00 BP 165/70 09/25/22 08:00 Pulse Ox 97 09/25/22 08:13 FiO2 30 09/25/22 04:00 Intake & Output 09/24/22 09/25/22 09/25/22 18:59 06:59 18:59 Intake Total 716 236 Balance 716 236 Weight 79.379 kg Intake: Oral 716 236 Other: # Voids 1 2 # Bowel Movements 2 - Exam General: Well developed, well nourished. No acute distress. Chronically ill appearing HEENT: Head is atraumatic, normocephalic. CV: Heart regular in rate and rhythm positive S1 and S2. Lungs: Diminished throughout.No wheezes rales or rhonchi. On 4L NC Abdomen/GI: Soft. No guarding, rigidity, or abdominal tenderness. : No suprapubic tenderness. Musculoskeletal/ Extremities: MARTÍNEZ, No gross atrophy. + generalized weakness Vascular: Radial pulses equal. 2/4. No peripheral edema Skin: Warm and dry Neurologic: Awake, alert and oriented times 3. CN II-XII grossly intact. No focal deficits. Psychiatric: Appropriate mood and affect. - Labs CBC & Chem 7: 09/22/22 10:37 09/24/22 13:11 Labs: Abnormal Lab Results - Last 24 Hours (Table) 09/24/22 09/24/22 09/25/22 Range/Units 13:11 20:04 06:20 Carbon Dioxide 37 H (22-30) mmol/L BUN 31 H (7-17) mg/dL Creatinine 1.05 H (0.52-1.04) mg/dL Glucose 217 H (74-99) mg/dL POC Glucose (mg/dL) 291 H 133 H (70-110) mg/dL 09/25/22 Range/Units 11:46 Carbon Dioxide (22-30) mmol/L BUN (7-17) mg/dL Creatinine (0.52-1.04) mg/dL Glucose (74-99) mg/dL POC Glucose (mg/dL) 138 H (70-110) mg/dL Microbiology - Last 24 Hours (Table) 09/18/22 15:06 Blood Culture - Final Blood No Growth after 144 hours 09/18/22 15:06 Blood Culture - Final Blood No Growth after 144 hours Assessment and Plan Assessment: Symptoms * Pain - 5/10 chronic back pain, continue [place] and Tylenol * Fatigue - Weak and tired, Continue PT/OT and Feosol * SOB - SOB at rest, continue Albuterol, Symbicort, Singulair, Duoneb, Theophylline,and Prednisone * Insomnia - Yes, continue Melatonin * N/V - Occasional, add Zofran prn * Anxiety - Yes, Continue Xanax * Depression - Yes, continue Cymbalta * Confusion - No * Agitation - No * Hallucinations - No * Appetite/weight loss - No recent weight loss or loss of appetite. Continue with heart healthy diet * Dysphagia - No * Constipation - No, LBM 09/25 * Incontinence - No * Itch - No * Cough - + dry cough Plan: Summary/Goals -The patient is sleeping in bed. She states she is very tired today. She states her breathing has improved since admission. Her plans remain to go home at discharge with palliative care. She is hopeful that she will be able to get back on the transplant list. Recommendations - Home with [facility] with OP palliative care Advanced Directives - None on file Code Status - Full code Thank you for this consultation Cristina Pollard [facility] Palliative Care [facility] [id number] Email: [email or web address] Time with Patient: Greater than 30 Time with Patient: Less than 30
--- NOTE | 2022-09-25 15:51 | P.PN ---
Subjective Progress Note Date: 09/25/22 Hospital course: Patient is a very pleasant 67-year-old female with a past medical history of advanced COPD home oxygen dependent on 3 L at all times, hypertension, rheumatoid arthritis, and chronic back pain. She presented to the emergency department on 09/18/22 with a chief complaint of worsening shortness of breath. Patient underwent full evaluation in the emergency department. She was found to be afebrile, hypoxic 78% on room air, requiring 4 L nasal cannula, tachypneic breathing at rate of 26, pulse rate was 91, blood pressure 124/74. CBC revealed mild leukocytosis at 12.4, otherwise unremarkable. Chemistries show sodium of 136, chloride 95, CO2 of 38, BUN 21, creatinine of 0.72. Liver function tests are unremarkable. Troponin was less than 0.012. Chest x-ray shows right upper lobe linear scarring without change when compared to prior. EKG shows sinus rhythm with frequent PACs. The patient was given Solu-Medrol, nebulizers, and admitted to medicine for further evaluation and management with consultation to pulmonology and palliative care. Physical exam: Patient seen and fully evaluated at the bedside this morning. Patient reports feeling slightly better but continues to have significant shortness of breath with conversational dyspnea noted throughout assessment. Patient was on BiPAP overnight now back on 4 L O2 via nasal cannula. Patient remains afebrile showing no signs of infectious process. Antibiotics discontinued at this time. Patient denies having any headache, lightheadedness, dizziness, chest pain, palpitations, or experiencing any numbness/tingling/weakness in her extremities. Vital signs reviewed and stable. General: Nontoxic, no distress and appears stated age. Derm: Skin warm and dry, normal coloration for ethnicity. Head: Atraumatic, normocephalic and symmetric. Eyes: EOMs intact, no lid lag, and anicteric sclera Mouth: no lip lesions, mucus membranes moist Cardiovascular: regular rate and rhythm with normal S1S2, no murmur, positive posterior tibial pulses bilaterally, and cap refill < 2 seconds. Lungs: Respirations tachypneic and slightly labored with use of accessory muscles. Patient was on BiPAP overnight and now back on nasal cannula 4 L with SpO2 95-96%. Lungs diminished with expiratory wheezes throughout all guzman. Abdominal: soft, nontender to palpation, no guarding, no appreciable organom egaly Ext: ROM intact. No gross muscle atrophy, no edema, no contractures Neuro: Speech clear, face symmetrical and CN II-XII grossly intact with no noted focal neuro deficits Psych: Alert and oriented to person, place, time, and situation. Appropriate and pleasant affect. Assessment and Plan of Care: Acute COPD exacerbation Acute on chronic respiratory failure with hypoxia and hypercarbia secondary to acute COPD exacerbation -Pulmonology following -Oxygenation to be administered and titrated as needed to maintain SPO2 equal to or greater than 92% -Telemetry monitoring. -Monitor Pulse-oximetry -Duonebs scheduled and as needed for SOB and/or wheezing -Incentive Spirometry -Steroids: Patient received 7 days of IV steroids and transition to oral Prednisone 40 mg daily on 09/24/22. -Antibiotics: Finished 5 days of azithromycin on 09/22/22 and patient was restarted on antibiotics doxycycline and Rocephin on 09/22/22 as patient was reportedly showing no improvement. Upon evaluation on 09/25/22 patient showing no signs of infectious process. Antibiotics discontinued at this time. Chest x-ray negative 2 and pro-calcitonin also negative. -Continue Symbicort, Singulair, and Theophylline. -Consult placed to palliative care and COPD navigator. Hypertension -Monitor vital signs and continue daily medication regimen with verapamil. Rheumatoid arthritis Chronic back pain -Continue daily medication regimen with Mobic and Tylenol. CODE STATUS: Full code DVT prophylaxis: Heparin Discussed with: Patient and RN Anticipated discharge date: 2-[address]: Home with palliative care and COPD navigator A total of 37 minutes was spent on the care of this complex patient more than 50% of the time was spent in counseling and care coordination. Kapil Gonzalez NP rendered care for this patient independently, reviewed the findings and plan as documented in the note above. I did not physically speak with or examine the patient on this date. Objective - Vital Signs Vital signs: Vital Signs Temp 98 F 09/24/22 20:00 Pulse 77 09/25/22 04:00 Resp 18 09/25/22 04:00 BP 158/64 09/25/22 04:00 Pulse Ox 96 09/25/22 04:00 FiO2 30 09/25/22 04:00 Intake & Output 09/24/22 09/25/22 09/25/22 18:59 06:59 18:59 Intake Total 716 Balance 716 Intake: Oral 716 Other: # Voids 1 2 # Bowel Movements 2 - Labs CBC & Chem 7: 09/22/22 10:37 09/24/22 13:11 Labs: Abnormal Lab Results - Last 24 Hours (Table) 09/24/22 09/24/22 09/24/22 Range/Units 11:37 13:11 20:04 Carbon Dioxide 37 H (22-30) mmol/L BUN 31 H (7-17) mg/dL Creatinine 1.05 H (0.52-1.04) mg/dL Glucose 217 H (74-99) mg/dL POC Glucose (mg/dL) 221 H 291 H (70-110) mg/dL 09/25/22 Range/Units 06:20 Carbon Dioxide (22-30) mmol/L BUN (7-17) mg/dL Creatinine (0.52-1.04) mg/dL Glucose (74-99) mg/dL POC Glucose (mg/dL) 133 H (70-110) mg/dL Microbiology - Last 24 Hours (Table) 09/18/22 15:06 Blood Culture - Final Blood No Growth after 144 hours 09/18/22 15:06 Blood Culture - Final Blood No Growth after 144 hours
--- NOTE | 2022-09-25 16:21 | P.PN ---
Subjective Progress Note Date: 09/18/22 Principal diagnosis: Acute exacerbation of COPD This is a very pleasant 67-year-old female patient with a history of hypertension, rheumatoid arthritis, chronic lower extremity edema, attention deficit hyperactivity disorder, chronic back pain, COVID-19 pneumonia, chronic hypoxemic and hypercapnic respiratory failure utilizing oxygen at 4 L at home. She also has a noninvasive positive pressure ventilatory machine for nighttime. She is also noted to have a left upper lobe lung lesion measuring 18 x 13 mm. Based on these findings she was deactivated from the transplant list. Follow-up CAT scan to be performed in September of this year. She follows with Dr. Goodman in our office for the same. She was last discharged for COPD exacerbation on 08/29/2022. She presented here to the emergency room earlier today with complaints of increasing shortness of breath, cough and congestion for the past 6 days. His x-ray reveals some right upper lobe linear scarring or atelectasis without change. No congestive heart failure. White count 12.4. Hemoglobin 11.7. Sodium 136. Potassium 4.3. BUN 21. Creatinine 0.72. Glucose 134. Troponin negative 1. She's been initiated on Symbicort, IV Solu-Medrol, DuoNeb inhalations. Empiric antibiotics in the form of azithromycin. She is seen today in consultation in the emergency department. She is currently sitting up on the stretcher. Awake and alert in no acute distress maintaining O2 saturations in the mid 90s on 3 L/m per nasal cannula. She's been afebrile. On today's evaluation of 09/19/2022, the patient is doing well. No altered mentation. No chest pain. No shortness of breath. She does have chronic s hortness of breath and acute exacerbation of her chronic COPD is gradually improving. The patient remains on IV Solu-Medrol. The patient had a CAT scan of the chest that was done on 09/18/2022 and this was done to rule out possibility of malignancy. The CAT scan showed a stable left upper lobe 60 mm groundglass pulmonary nodule which has not changed compared to the earlier CAT scan from 08/28/2022. At the same time, the patient scintiscan of the chest showed no evidence of any pneumonia. There was evidence of linear atelectasis/scarring in the right involving the inferior aspect of the right upper lobe along the fissure. No significant change in the overall findings. Left upper lobe pulmonary nodule remains stable. No mediastinal lymphadenopathy. No hemoptysis. No pleurisy. No chest pain. No other complaints and the patient's blood work from today shows a white cell count of 8.9 with a hemoglobin of 11 BUN of 24 creatinine of 0.69 and a sodium level is at 140. On 09/20/2022, the patient is still bronchospastic and wheezy and the patient is slightly worse compared to yesterday. For that reason, we elected to keep the patient over the next 24-48 hours for IV steroid treatment. The patient is still receiving IV Solu-Medrol 60 mg every 6 hours. She remains on Symbicort as maintenance and addition of breath treatments are being also utilizing combination with ipratropium might 4 times a day. The patient on empiric antibiotic coverage with Zithromax. Rest of the medications remain unchanged. No new complaint otherwise. No altered mentation. No chest pain or pleurisy. 09/21/2022, the patient is feeling slightly better. She has no new complaints. She remains on DuoNeb about treatments [id number] and she is also on IV Solu-Medrol. No major side effects from the systemic steroid treatment. The patient is on theophylline also. She is completing a 5 day course of Zithromax 500 mg by mouth daily. No fever. No chills. No significant hyperglycemia. No labs from today. No pleurisy or hemoptysis. 09/22/2022, the patient is gradually improving. We'll keep him IV Solu-Medrol for another 24 hours. No new complaints. She still being treated for an acute COPD exacerbation. Noted the patient has advanced COPD. She is on DuoNeb neb treatments [id number], on Symbicort, theophylline and doxycycline as an empiric antibiotic coverage in combination with IV Rocephin. The labs are stable. Serum bicarbs of 41, BUN 32 with a creatinine of 0.8.ECOG is at 10.3 hemoglobin of 11.2. And a platelet count of 332. 09/23/2022, the patient was found to be lethargic and somewhat confused this morning. By the time I arrived to her in this afternoon, the patient was feeling better and she is not having any specific complaints. No chest pain. On her blood work, she was noted to be quite alkalotic and the patient's blood work showed a serum bicarb of 41 and a sodium level was at 141 with a potassium level of 4.5. This is blood work from yesterday. The discomfort of 10.1 with a hemoglobin of 11.2. No blood work was done today. Her chest x-ray from yesterday showed mild cardiomegaly and underlying COPD with mild patchy basilar infiltrate/atelectasis. No acute process was seen. The patient remains on albuterol rescue with [id number]. She was given 2 doses of Diamox to counteract her metabolic alkalosis. She remains on IV Solu-Medrol. On 09 24 2022, the patient is doing well. She is awake and alert. No new comp laints otherwise for now. No chest pain. She is chronically short of breath bronchospastic and wheezy. She remains on IV Solu-Medrol. She remains on bronchodilators. The patient is moving all 4 extremities without any limitation. No altered mentation. No significant encephalopathy on today's evaluation. Reevaluated today on 09/25/22, patient remains on the same medications, continues to have shortness of breath, intermittent wheezing, feeling better, remains on her usual bronchodilators and on IV Solu-Medrol. Again minimal improvement, patient has BiPAP at bedside but she is not compliant with it. She is presently on 4 L nasal cannula Objective - Vital Signs Vital signs: Vital Signs Temp 98.1 F 09/25/22 08:00 Pulse 94 09/25/22 16:11 Resp 18 09/25/22 14:00 BP 137/63 09/25/22 12:00 Pulse Ox 95 09/25/22 12:00 FiO2 30 09/25/22 16:12 Intake & Output 09/24/22 09/25/22 09/25/22 18:59 06:59 18:59 Intake Total 716 286 Balance 716 286 Weight 79.379 kg Intake: Intake, IV Titration 50 Amount cefTRIAXone 1 gm In 50 Sodium Chloride 0.9% 50 ml @ 100 mls/hr IVPB Q12HR LATESHA Rx#:[id number] Oral 716 236 Other: # Voids 1 2 # Bowel Movements 2 - Exam Physical Exam: Revealed a 67-year-old female obese in no distress Head: Atraumatic, normocephalic. HEENT:[Neck is supple.] [No neck masses.] [No thyromegaly.] [No JVD.] Chest: [Diminished breath sound bilaterally no rhonchi no wheezes Cardiac Exam: [Normal S1 and S2, no S3 gallop, no murmur.] Abdomen: [Soft, nontender, no megaly, no rebound, no guarding, normal bowel sounds.] Extremities: [No clubbing, no edema, no cyanosis.] Neurological Exam: [No focal neurologic deficit.] Alert oriented 3 Psychiatric: Normal mood affect and normal mental status. Skin: No - Labs CBC & Chem 7: 09/22/22 10:37 09/24/22 13:11 Labs: Abnormal Lab Results - Last 24 Hours (Table) 09/24/22 09/25/22 09/25/22 Range/Units 20:04 06:20 11:46 POC Glucose (mg/dL) 291 H 133 H 138 H (70-110) mg/dL Microbiology - Last 24 Hours (Table) 09/18/22 15:06 Blood Culture - Final Blood No Growth after 144 hours 09/18/22 15:06 Blood Culture - Final Blood No Growth after 144 hours Assessment and Plan Assessment: Impression: Acute exacerbation of chronic obstructive pulmonary disease, Acute on chronic hypoxemic respiratory failure Acute on chronic hypercapnic respiratory failure secondary to above, has BiPAP at bedside. History of a left upper lobe lesion measuring 18 x 13 mm in size. Needs outpatient follow-up History of CoVID in 19 pneumonia History of chronic lower extremity edema Hypertension Attention deficit hyperactivity disorder Rheumatoid arthritis Chronic back pain Former smoker Recommendation: Continue present supportive care measures Continue steroids and bronchodilators Continue Diamox. Continue empiric antibiotics including Rocephin and doxycycline We will continue to follow possible discharge planning in the next 24-48 hours Time with Patient: Less than 30
[2022-09-25 16:41] LABS: Glucose,Whole Blood 187 mg/dL (70-110)
[2022-09-25] MEDS: MONTELUKAST 10 MG TAB PO SCH (19:48)
[2022-09-25] MEDS: rOPINIRole HCL 4 MG TABLET PO SCH (19:48)
[2022-09-25 20:14] LABS: Glucose,Whole Blood 245 mg/dL (70-110)
[2022-09-26 05:54] LABS: Glucose,Whole Blood 102 mg/dL (70-110)
[2022-09-26] MEDS: INSULIN ASPART (NovoLOG) 100 UNIT/ML VIAL SQ SCH ×4 (06:00→20:31)
[2022-09-26] MEDS: IPRATROPIUM-ALBUTEROL 3 ML NEB INHALATION SCH ×4 (07:56→20:27)
[2022-09-26] MEDS: SYMBICORT 160-4.5 MCG INHALER INHALATION SCH ×2 (07:56→20:27)
[2022-09-26] MEDS: HEPARIN SODIUM,PORCINE/PF 5,000 UNIT/0.5 ML SYRINGE SQ SCH ×3 (07:57→23:52)
[2022-09-26] MEDS: MAGNESIUM OXIDE 400 MG TAB PO SCH (07:57)
[2022-09-26] MEDS: THEOPHYLLINE 24 HOUR 400 MG CAP.ER.24H PO SCH (07:57)
[2022-09-26] MEDS: DOXYCYCLINE 100 MG CAP PO SCH (07:57)
[2022-09-26] MEDS: MELOXICAM 7.5 MG TAB PO SCH (07:58)
[2022-09-26] MEDS: LORATADINE 10 MG TAB PO SCH (07:58)
[2022-09-26] MEDS: VERAPAMIL SR 120 MG TABLET.ER PO SCH (07:58)
[2022-09-26] MEDS: FERROUS SULFATE 325 MG TAB PO SCH (07:58)
[2022-09-26] MEDS: ALPRAZolam 0.5 MG TAB PO PRN (07:58)
[2022-09-26] MEDS: DULoxetine HCL 30 MG CAPSULE.DR PO SCH (07:58)
[2022-09-26] MEDS: predniSONE 20 MG TAB PO SCH (07:59)
[2022-09-26 11:59] LABS: Glucose,Whole Blood 106 mg/dL (70-110)
--- NOTE | 2022-09-26 14:53 | P.PN ---
Subjective Progress Note Date: 09/26/22 Principal diagnosis: Acute exacerbation of COPD This is a very pleasant 67-year-old female patient with a history of hypertension, rheumatoid arthritis, chronic lower extremity edema, attention deficit hyperactivity disorder, chronic back pain, COVID-19 pneumonia, chronic hypoxemic and hypercapnic respiratory failure utilizing oxygen at 4 L at home. She also has a noninvasive positive pressure ventilatory machine for nighttime. She is also noted to have a left upper lobe lung lesion measuring 18 x 13 mm. Based on these findings she was deactivated from the transplant list. Follow-up CAT scan to be performed in September of this year. She follows with Dr. Goodman in our office for the same. She was last discharged for COPD exacerbation on 08/29/2022. She presented here to the emergency room earlier today with complaints of increasing shortness of breath, cough and congestion for the past 6 days. His x-ray reveals some right upper lobe linear scarring or atelectasis without change. No congestive heart failure. White count 12.4. Hemoglobin 11.7. Sodium 136. Potassium 4.3. BUN 21. Creatinine 0.72. Glucose 134. Troponin negative 1. She's been initiated on Symbicort, IV Solu-Medrol, DuoNeb inhalations. Empiric antibiotics in the form of azithromycin. She is seen today in consultation in the emergency department. She is currently sitting up on the stretcher. Awake and alert in no acute distress maintaining O2 saturations in the mid 90s on 3 L/m per nasal cannula. She's been afebrile. On today's evaluation of 09/19/2022, the patient is doing well. No altered mentation. No chest pain. No shortness of breath. She does have chronic s hortness of breath and acute exacerbation of her chronic COPD is gradually improving. The patient remains on IV Solu-Medrol. The patient had a CAT scan of the chest that was done on 09/18/2022 and this was done to rule out possibility of malignancy. The CAT scan showed a stable left upper lobe 60 mm groundglass pulmonary nodule which has not changed compared to the earlier CAT scan from 08/28/2022. At the same time, the patient scintiscan of the chest showed no evidence of any pneumonia. There was evidence of linear atelectasis/scarring in the right involving the inferior aspect of the right upper lobe along the fissure. No significant change in the overall findings. Left upper lobe pulmonary nodule remains stable. No mediastinal lymphadenopathy. No hemoptysis. No pleurisy. No chest pain. No other complaints and the patient's blood work from today shows a white cell count of 8.9 with a hemoglobin of 11 BUN of 24 creatinine of 0.69 and a sodium level is at 140. On 09/20/2022, the patient is still bronchospastic and wheezy and the patient is slightly worse compared to yesterday. For that reason, we elected to keep the patient over the next 24-48 hours for IV steroid treatment. The patient is still receiving IV Solu-Medrol 60 mg every 6 hours. She remains on Symbicort as maintenance and addition of breath treatments are being also utilizing combination with ipratropium might 4 times a day. The patient on empiric antibiotic coverage with Zithromax. Rest of the medications remain unchanged. No new complaint otherwise. No altered mentation. No chest pain or pleurisy. 09/21/2022, the patient is feeling slightly better. She has no new complaints. She remains on DuoNeb about treatments [id number] and she is also on IV Solu-Medrol. No major side effects from the systemic steroid treatment. The patient is on theophylline also. She is completing a 5 day course of Zithromax 500 mg by mouth daily. No fever. No chills. No significant hyperglycemia. No labs from today. No pleurisy or hemoptysis. 09/22/2022, the patient is gradually improving. We'll keep him IV Solu-Medrol for another 24 hours. No new complaints. She still being treated for an acute COPD exacerbation. Noted the patient has advanced COPD. She is on DuoNeb neb treatments [id number], on Symbicort, theophylline and doxycycline as an empiric antibiotic coverage in combination with IV Rocephin. The labs are stable. Serum bicarbs of 41, BUN 32 with a creatinine of 0.8.ECOG is at 10.3 hemoglobin of 11.2. And a platelet count of 332. 09/23/2022, the patient was found to be lethargic and somewhat confused this morning. By the time I arrived to her in this afternoon, the patient was feeling better and she is not having any specific complaints. No chest pain. On her blood work, she was noted to be quite alkalotic and the patient's blood work showed a serum bicarb of 41 and a sodium level was at 141 with a potassium level of 4.5. This is blood work from yesterday. The discomfort of 10.1 with a hemoglobin of 11.2. No blood work was done today. Her chest x-ray from yesterday showed mild cardiomegaly and underlying COPD with mild patchy basilar infiltrate/atelectasis. No acute process was seen. The patient remains on albuterol rescue with [id number]. She was given 2 doses of Diamox to counteract her metabolic alkalosis. She remains on IV Solu-Medrol. On 09 24 2022, the patient is doing well. She is awake and alert. No new comp laints otherwise for now. No chest pain. She is chronically short of breath bronchospastic and wheezy. She remains on IV Solu-Medrol. She remains on bronchodilators. The patient is moving all 4 extremities without any limitation. No altered mentation. No significant encephalopathy on today's evaluation. Reevaluated today on 09/25/22, patient remains on the same medications, continues to have shortness of breath, intermittent wheezing, feeling better, remains on her usual bronchodilators and on IV Solu-Medrol. Again minimal improvement, patient has BiPAP at bedside but she is not compliant with it. She is presently on 4 L nasal cannula Reevaluated today on 09/26/22, feeling a bit better today compared to yesterday, less cough and less wheezing less shortness of breath. Remains on maximal therapy for COPD exacerbation. Remains on oxygen at 4 L/m. No labs were done today except blood sugar 106. Objective - Vital Signs Vital signs: Vital Signs Temp 98.0 F 09/26/22 11:48 Pulse 103 H 09/26/22 11:48 Resp 18 09/26/22 11:48 BP 153/68 09/26/22 11:48 Pulse Ox 93 L 09/26/22 11:48 FiO2 30 09/26/22 11:02 Intake & Output 09/25/22 09/26/22 09/26/22 18:59 06:59 18:59 Intake Total 286 480 640 Output Total 450 Balance 286 30 640 Weight 79.379 kg Intake: Intake, IV Titration 50 Amount cefTRIAXone 1 gm In 50 Sodium Chloride 0.9% 50 ml @ 100 mls/hr IVPB Q12HR [facility] Rx#:[id number] Oral 236 480 640 Output: Urine 450 Other: # Voids 2 - Exam Physical Exam: Revealed a 67-year-old female obese in no distress, on 4 L nasal cannula Head: Atraumatic, normocephalic. HEENT:[Neck is supple.] [No neck masses.] [No thyromegaly.] [No JVD.] Chest: [Diminished breath sound bilaterally no rhonchi no wheezes Cardiac Exam: [Normal S1 and S2, no S3 gallop, no murmur.] Abdomen: [Soft, nontender, no megaly, no rebound, no guarding, normal bowel sounds.] Extremities: [No clubbing, no edema, no cyanosis.] Neurological Exam: [No focal neurologic deficit.] Alert oriented 3 Psychiatric: Normal mood affect and normal mental status. Skin: No - Labs CBC & Chem 7: 09/22/22 10:37 09/24/22 13:11 Labs: Abnormal Lab Results - Last 24 Hours (Table) 09/25/22 09/25/22 Range/Units 16:30 20:07 POC Glucose (mg/dL) 187 H 245 H (70-110) mg/dL Assessment and Plan Assessment: Impression: Acute exacerbation of chronic obstructive pulmonary disease, Acute on chronic hypoxemic respiratory failure Acute on chronic hypercapnic respiratory failure secondary to above, has BiPAP at bedside. History of a left upper lobe lesion measuring 18 x 13 mm in size. Needs outpatient follow-up History of CoVID in 19 pneumonia History of chronic lower extremity edema Hypertension Attention deficit hyperactivity disorder Rheumatoid arthritis Chronic back pain Former smoker Recommendation: Continue present supportive care measures Continue steroids and bronchodilators Continue Diamox. Continue empiric antibiotics including Rocephin and doxycycline Consider discharge planning in the next 24 hours Time with Patient: Less than 30
[2022-09-26 17:17] LABS: Glucose,Whole Blood 152 mg/dL (70-110)
--- NOTE | 2022-09-26 17:23 | P.PN ---
Subjective Progress Note Date: 09/26/22 Hospital course: Patient is a very pleasant 67-year-old female with a past medical history of advanced COPD home oxygen dependent on 3 L at all times, hypertension, rheumatoid arthritis, and chronic back pain. She presented to the emergency department on 09/18/22 with a chief complaint of worsening shortness of breath. Patient underwent full evaluation in the emergency department. She was found to be afebrile, hypoxic 78% on room air, requiring 4 L nasal cannula, tachypneic breathing at rate of 26, pulse rate was 91, blood pressure 124/74. CBC revealed mild leukocytosis at 12.4, otherwise unremarkable. Chemistries show sodium of 136, chloride 95, CO2 of 38, BUN 21, creatinine of 0.72. Liver function tests are unremarkable. Troponin was less than 0.012. Chest x-ray shows right upper lobe linear scarring without change when compared to prior. EKG shows sinus rhythm with frequent PACs. The patient was given Solu-Medrol, nebulizers, and admitted to medicine for further evaluation and management with consultation to pulmonology and palliative care. Physical exam: Patient seen and fully evaluated at the bedside this morning. She appears to be doing slightly better than yesterday. Patient with improved air movement and reports improvement in cough. Patient was on BiPAP overnight now back on baseline 3 L O2 via nasal cannula. Patient will likely be discharged home within the next 24 hours with palliative care and COPD navigator program. Vital signs reviewed and stable. General: Nontoxic, no distress and appears stated age. Derm: Skin warm and dry, normal coloration for ethnicity. Head: Atraumatic, normocephalic and symmetric. Eyes: EOMs intact, no lid lag, and anicteric sclera Mouth: no lip lesions, mucus membranes moist Cardiovascular: regular rate and rhythm with normal S1S2, no murmur, positive posterior tibial pulses bilaterally, and cap refill < 2 seconds. Lungs: Respirations tachypneic and slightly labored with use of accessory m uscles. Patient was on BiPAP overnight and now back on nasal cannula 4 L with SpO2 95-96%. Lungs diminished with expiratory wheezes throughout all guzman. Abdominal: soft, nontender to palpation, no guarding, no appreciable organomegaly Ext: ROM intact. No gross muscle atrophy, no edema, no contractures Neuro: Speech clear, face symmetrical and CN II-XII grossly intact with no noted focal neuro deficits Psych: Alert and oriented to person, place, time, and situation. Appropriate and pleasant affect. Assessment and Plan of Care: Acute COPD exacerbation Acute on chronic respiratory failure with hypoxia and hypercarbia secondary to acute COPD exacerbation -Pulmonology following -Oxygenation to be administered and titrated as needed to maintain SPO2 equal to or greater than 92% -Telemetry monitoring. -Monitor Pulse-oximetry -Duonebs scheduled and as needed for SOB and/or wheezing -Incentive Spirometry -Steroids: Patient received 7 days of IV steroids and transition to oral Prednisone 40 mg daily on 09/24/22. -Antibiotics: Finished 5 days of azithromycin on 09/22/22 and patient was r estarted on antibiotics doxycycline and Rocephin on 09/22/22 as patient was reportedly showing no improvement. Upon evaluation on 09/25/22 patient showing no signs of infectious process. Antibiotics were discontinued at this time. Chest x-ray negative 2 and pro-calcitonin also negative. -Continue Symbicort, Singulair, and Theophylline. -Consult placed to palliative care and COPD navigator. Hypertension -Monitor vital signs and continue daily medication regimen with verapamil. Rheumatoid arthritis Chronic back pain -Continue daily medication regimen with Mobic and Tylenol. CODE STATUS: Full code DVT prophylaxis: Heparin Discussed with: Patient and RN Anticipated discharge date: Likely tomorrow Anticipated discharge place: Home with palliative care and COPD navigator A total of 37 minutes was spent on the care of this complex patient more than 50% of the time was spent in counseling and care coordination. Objective - Vital Signs Vital signs: Vital Signs Temp 97.8 F 09/26/22 04:00 Pulse 96 09/26/22 08:06 Resp 22 09/26/22 04:00 BP 149/69 09/26/22 04:00 Pulse Ox 94 L 09/26/22 04:00 FiO2 30 09/26/22 03:19 Intake & Output 09/25/22 09/26/22 09/26/22 18:59 06:59 18:59 Intake Total 286 480 Output Total 450 Balance 286 30 Weight 79.379 kg Intake: Intake, IV Titration 50 Amount cefTRIAXone 1 gm In 50 Sodium Chloride 0.9% 50 ml @ 100 mls/hr IVPB Q12HR [facility] Rx#:[id number] Oral 236 480 Output: Urine 450 Other: # Voids 2 - Labs CBC & Chem 7: 09/22/22 10:37 09/24/22 13:11 Labs: Abnormal Lab Results - Last 24 Hours (Table) 09/25/22 09/25/22 09/25/22 Range/Units 11:46 16:30 20:07 POC Glucose (mg/dL) 138 H 187 H 245 H (70-110) mg/dL
[2022-09-26] MEDS: rOPINIRole HCL 4 MG TABLET PO SCH (20:14)
[2022-09-26] MEDS: MONTELUKAST 10 MG TAB PO SCH (20:14)
[2022-09-26 20:31] LABS: Glucose,Whole Blood 119 mg/dL (70-110)
[2022-09-27 06:23] LABS: Glucose,Whole Blood 86 mg/dL (70-110)
[2022-09-27] MEDS: INSULIN ASPART (NovoLOG) 100 UNIT/ML VIAL SQ SCH ×4 (06:37→20:00)
[2022-09-27] MEDS: MELOXICAM 7.5 MG TAB PO SCH (08:20)
[2022-09-27] MEDS: predniSONE 20 MG TAB PO SCH (08:20)
[2022-09-27] MEDS: FERROUS SULFATE 325 MG TAB PO SCH (08:20)
[2022-09-27] MEDS: DULoxetine HCL 30 MG CAPSULE.DR PO SCH (08:20)
[2022-09-27] MEDS: HEPARIN SODIUM,PORCINE/PF 5,000 UNIT/0.5 ML SYRINGE SQ SCH ×3 (08:21→23:16)
[2022-09-27] MEDS: MAGNESIUM OXIDE 400 MG TAB PO SCH (08:21)
[2022-09-27] MEDS: LORATADINE 10 MG TAB PO SCH (08:21)
[2022-09-27] MEDS: THEOPHYLLINE 24 HOUR 400 MG CAP.ER.24H PO SCH (08:22)
[2022-09-27] MEDS: VERAPAMIL SR 120 MG TABLET.ER PO SCH (08:22)
[2022-09-27] MEDS: SYMBICORT 160-4.5 MCG INHALER INHALATION SCH ×2 (08:29→19:02)
[2022-09-27] MEDS: IPRATROPIUM-ALBUTEROL 3 ML NEB INHALATION SCH ×4 (08:29→19:01)
[2022-09-27 10:45] LABS: Calcium 8.6 mg/dL (8.4-10.2)
[2022-09-27 10:48] LABS: Magnesium 2.2 mg/dL (1.6-2.3)
[2022-09-27 11:51] LABS: Glucose,Whole Blood 159 mg/dL (70-110)
[2022-09-27 13:34] LABS: HCT 41.8 % (34.0-46.0); HGB 12.6 gm/dL (11.4-16.0); Hypochromasia Marked; MCH 30.7 pg (25.0-35.0); MCHC 30.3 g/dL (31.0-37.0); MCV 101.5 fL (80.0-100.0); Macrocytosis Slight; Mean Platelet Volume 9.5; Platelet Count 312 k/uL (150-450); RBC 4.12 m/uL (3.80-5.40); RDW 14.8 % (11.5-15.5); WBC 21.7 k/uL (3.8-10.6)
--- NOTE | 2022-09-27 15:07 | P.PN ---
Subjective Progress Note Date: 09/27/22 Principal diagnosis: Acute exacerbation of COPD This is a very pleasant 67-year-old female patient with a history of hypertension, rheumatoid arthritis, chronic lower extremity edema, attention deficit hyperactivity disorder, chronic back pain, COVID-19 pneumonia, chronic hypoxemic and hypercapnic respiratory failure utilizing oxygen at 4 L at home. She also has a noninvasive positive pressure ventilatory machine for nighttime. She is also noted to have a left upper lobe lung lesion measuring 18 x 13 mm. Based on these findings she was deactivated from the transplant list. Follow-up CAT scan to be performed in September of this year. She follows with Dr. Goodman in our office for the same. She was last discharged for COPD exacerbation on 08/29/2022. She presented here to the emergency room earlier today with complaints of increasing shortness of breath, cough and congestion for the past 6 days. His x-ray reveals some right upper lobe linear scarring or atelectasis without change. No congestive heart failure. White count 12.4. Hemoglobin 11.7. Sodium 136. Potassium 4.3. BUN 21. Creatinine 0.72. Glucose 134. Troponin negative 1. She's been initiated on Symbicort, IV Solu-Medrol, DuoNeb inhalations. Empiric antibiotics in the form of azithromycin. She is seen today in consultation in the emergency department. She is currently sitting up on the stretcher. Awake and alert in no acute distress maintaining O2 saturations in the mid 90s on 3 L/m per nasal cannula. She's been afebrile. On today's evaluation of 09/19/2022, the patient is doing well. No altered mentation. No chest pain. No shortness of breath. She does have chronic s hortness of breath and acute exacerbation of her chronic COPD is gradually improving. The patient remains on IV Solu-Medrol. The patient had a CAT scan of the chest that was done on 09/18/2022 and this was done to rule out possibility of malignancy. The CAT scan showed a stable left upper lobe 60 mm groundglass pulmonary nodule which has not changed compared to the earlier CAT scan from 08/28/2022. At the same time, the patient scintiscan of the chest showed no evidence of any pneumonia. There was evidence of linear atelectasis/scarring in the right involving the inferior aspect of the right upper lobe along the fissure. No significant change in the overall findings. Left upper lobe pulmonary nodule remains stable. No mediastinal lymphadenopathy. No hemoptysis. No pleurisy. No chest pain. No other complaints and the patient's blood work from today shows a white cell count of 8.9 with a hemoglobin of 11 BUN of 24 creatinine of 0.69 and a sodium level is at 140. On 09/20/2022, the patient is still bronchospastic and wheezy and the patient is slightly worse compared to yesterday. For that reason, we elected to keep the patient over the next 24-48 hours for IV steroid treatment. The patient is still receiving IV Solu-Medrol 60 mg every 6 hours. She remains on Symbicort as maintenance and addition of breath treatments are being also utilizing combination with ipratropium might 4 times a day. The patient on empiric antibiotic coverage with Zithromax. Rest of the medications remain unchanged. No new complaint otherwise. No altered mentation. No chest pain or pleurisy. 09/21/2022, the patient is feeling slightly better. She has no new complaints. She remains on DuoNeb about treatments [id number] and she is also on IV Solu-Medrol. No major side effects from the systemic steroid treatment. The patient is on theophylline also. She is completing a 5 day course of Zithromax 500 mg by mouth daily. No fever. No chills. No significant hyperglycemia. No labs from today. No pleurisy or hemoptysis. 09/22/2022, the patient is gradually improving. We'll keep him IV Solu-Medrol for another 24 hours. No new complaints. She still being treated for an acute COPD exacerbation. Noted the patient has advanced COPD. She is on DuoNeb neb treatments [id number], on Symbicort, theophylline and doxycycline as an empiric antibiotic coverage in combination with IV Rocephin. The labs are stable. Serum bicarbs of 41, BUN 32 with a creatinine of 0.8.ECOG is at 10.3 hemoglobin of 11.2. And a platelet count of 332. 09/23/2022, the patient was found to be lethargic and somewhat confused this morning. By the time I arrived to her in this afternoon, the patient was feeling better and she is not having any specific complaints. No chest pain. On her blood work, she was noted to be quite alkalotic and the patient's blood work showed a serum bicarb of 41 and a sodium level was at 141 with a potassium level of 4.5. This is blood work from yesterday. The discomfort of 10.1 with a hemoglobin of 11.2. No blood work was done today. Her chest x-ray from yesterday showed mild cardiomegaly and underlying COPD with mild patchy basilar infiltrate/atelectasis. No acute process was seen. The patient remains on albuterol rescue with [id number]. She was given 2 doses of Diamox to counteract her metabolic alkalosis. She remains on IV Solu-Medrol. On 09 24 2022, the patient is doing well. She is awake and alert. No new comp laints otherwise for now. No chest pain. She is chronically short of breath bronchospastic and wheezy. She remains on IV Solu-Medrol. She remains on bronchodilators. The patient is moving all 4 extremities without any limitation. No altered mentation. No significant encephalopathy on today's evaluation. Reevaluated today on 09/25/22, patient remains on the same medications, continues to have shortness of breath, intermittent wheezing, feeling better, remains on her usual bronchodilators and on IV Solu-Medrol. Again minimal improvement, patient has BiPAP at bedside but she is not compliant with it. She is presently on 4 L nasal cannula Reevaluated today on 09/26/22, feeling a bit better today compared to yesterday, less cough and less wheezing less shortness of breath. Remains on maximal therapy for COPD exacerbation. Remains on oxygen at 4 L/m. No labs were done today except blood sugar 106. Reevaluated today on 09/27/22, patient is basically about the same, continues to have intermittent episodes of cough wheezing shortness of breath, patient is on maximal therapy for her COPD, however considering his severe COPD, the patient has severe end-stage, and I believe she would always end up readmitted no matter when she gets discharged home. In the meantime I believe the patient should be considered for discharge planning in the next 24 hours especially if the patient is already feeling better, and again she is maximal on therapy. Objective - Vital Signs Vital signs: Vital Signs Temp 98.2 F 09/27/22 11:40 Pulse 102 H 09/27/22 11:40 Resp 20 09/27/22 11:40 BP 160/70 09/27/22 11:40 Pulse Ox 97 09/27/22 11:40 FiO2 30 09/27/22 04:09 Intake & Output 09/26/22 09/27/22 09/27/22 18:59 06:59 18:59 Intake Total 880 480 Output Total 1999 Balance 880 480 -2000 Intake: Oral 880 480 Output: Urine 1999 Other: # Voids 2 1 # Bowel Movements 2 - Exam Physical Exam: Revealed a 67-year-old female obese in no distress, on 4 L nasal cannula Head: Atraumatic, normocephalic. HEENT:[Neck is supple.] [No neck masses.] [No thyromegaly.] [No JVD.] Chest: [Diminished breath sound bilaterally no rhonchi no wheezes Cardiac Exam: [Normal S1 and S2, no S3 gallop, no murmur.] Abdomen: [Soft, nontender, no megaly, no rebound, no guarding, normal bowel sounds.] Extremities: [No clubbing, no edema, no cyanosis.] Neurological Exam: [No focal neurologic deficit.] Alert oriented 3 Psychiatric: Normal mood affect and normal mental status. Skin: No - Labs CBC & Chem 7: 09/27/22 12:37 09/27/22 08:36 Labs: Abnormal Lab Results - Last 24 Hours (Table) 09/26/22 09/26/22 09/27/22 Range/Units 17:00 20:30 08:36 WBC (3.8-10.6) k/uL MCV (80.0-100.0) fL MCHC (31.0-37.0) g/dL Chloride 96 L (98-107) mmol/L Carbon Dioxide 38 H (22-30) mmol/L BUN 29 H (7-17) mg/dL Glucose 121 H (74-99) mg/dL POC Glucose (mg/dL) 152 H 119 H (70-110) mg/dL 09/27/22 09/27/22 Range/Units 11:49 12:37 WBC 21.7 H (3.8-10.6) k/uL MCV 101.5 H (80.0-100.0) fL MCHC 30.3 L (31.0-37.0) g/dL Chloride (98-107) mmol/L Carbon Dioxide (22-30) mmol/L BUN (7-17) mg/dL Glucose (74-99) mg/dL POC Glucose (mg/dL) 159 H (70-110) mg/dL Assessment and Plan Assessment: Impression: Acute exacerbation of chronic obstructive pulmonary disease, Acute on chronic hypoxemic respiratory failure Acute on chronic hypercapnic respiratory failure secondary to above, has BiPAP at bedside. History of a left upper lobe lesion measuring 18 x 13 mm in size. Needs outpatient follow-up History of CoVID in 19 pneumonia History of chronic lower extremity edema Hypertension Attention deficit hyperactivity disorder Rheumatoid arthritis Chronic back pain Former smoker Recommendation: Continue present supportive care measures Continue steroids and bronchodilators Continue Diamox. Continue antibiotics Will clear for discharge by tomorrow Time with Patient: Less than 30
[2022-09-27 16:29] LABS: Glucose,Whole Blood 251 mg/dL (70-110)
[2022-09-27] MEDS: ALPRAZolam 0.5 MG TAB PO PRN (17:51)
--- NOTE | 2022-09-27 18:03 | P.PN ---
Subjective Progress Note Date: 09/27/22 Hospital course: Patient is a very pleasant 67-year-old female with a past medical history of advanced COPD home oxygen dependent on 3 L at all times, hypertension, rheumatoid arthritis, and chronic back pain. She presented to the emergency department on 09/18/22 with a chief complaint of worsening shortness of breath. Patient underwent full evaluation in the emergency department. She was found to be afebrile, hypoxic 78% on room air, requiring 4 L nasal cannula, tachypneic breathing at rate of 26, pulse rate was 91, blood pressure 124/74. CBC revealed mild leukocytosis at 12.4, otherwise unremarkable. Chemistries show sodium of 136, chloride 95, CO2 of 38, BUN 21, creatinine of 0.72. Liver function tests are unremarkable. Troponin was less than 0.012. Chest x-ray shows right upper lobe linear scarring without change when compared to prior. EKG shows sinus rhythm with frequent PACs. The patient was given Solu-Medrol, nebulizers, and admitted to medicine for further evaluation and management with consultation to pulmonology and palliative care. Physical exam: Patient seen and fully evaluated at the bedside this morning. Patient reports breathing and coughing slightly better, she does continue to have noted conversational dyspnea. Patient stating she would like to be discharged tomorrow morning, discussed with patient she will need to increase ambulation in her room today and if does well will likely be discharged home tomorrow as patient does have advanced COPD and is currently close to baseline. Vital signs reviewed and stable. General: Nontoxic, no distress and appears stated age. Derm: Skin warm and dry, normal coloration for ethnicity. Head: Atraumatic, normocephalic and symmetric. Eyes: EOMs intact, no lid lag, and anicteric sclera Mouth: no lip lesions, mucus membranes moist Cardiovascular: regular rate and rhythm with normal S1S2, no murmur, positive posterior tibial pulses bilaterally, and cap refill < 2 seconds. Lungs: Respirations tachypneic and slightly labored with use of accessory muscles. Patient on 3 L O2 via nasal cannula with SpO2 of 93%. Lungs diminished with expiratory wheezes throughout all guzman. Abdominal: soft, nontender to palpation, no guarding, no appreciable organomegaly Ext: ROM intact. No gross muscle atrophy, no edema, no contractures Neuro: Speech clear, face symmetrical and CN II-XII grossly intact with no noted focal neuro deficits Psych: Alert and oriented to person, place, time, and situation. Appropriate and pleasant affect. Assessment and Plan of Care: Acute COPD exacerbation Acute on chronic respiratory failure with hypoxia and hypercarbia secondary to acute COPD exacerbation -Pulmonology following -Oxygenation to be administered and titrated as needed to maintain SPO2 equal to or greater than 92% -Telemetry monitoring. -Monitor Pulse-oximetry -Duonebs scheduled and as needed for SOB and/or wheezing -Incentive Spirometry -Steroids: Patient received 7 days of IV steroids and transition to oral Prednisone 40 mg daily on 09/24/22. -Antibiotics: Finished 5 days of azithromycin on 09/22/22 and patient was restarted on antibiotics doxycycline and Rocephin on 09/22/22 as patient was reportedly showing no improvement. Upon evaluation on 09/25/22 patient showing no signs of infectious process. Antibiotics were discontinued at this time. Chest x-ray negative 2 and pro-calcitonin also negative. -Continue Symbicort, Singulair, and Theophylline. -Consult placed to palliative care and COPD navigator. Hypertension -Monitor vital signs and continue daily medication regimen with verapamil. Rheumatoid arthritis Chronic back pain -Continue daily medication regimen with Mobic and Tylenol. CODE STATUS: Full code DVT prophylaxis: Heparin Discussed with: Patient and RN Anticipated discharge date: Likely tomorrow Anticipated discharge place: Home with palliative care and COPD navigator A total of 35 minutes was spent on the care of this complex patient more than 50% of the time was spent in counseling and care coordination. Objective - Vital Signs Vital signs: Vital Signs Temp 98 F 09/27/22 04:00 Pulse 100 09/27/22 08:42 Resp 21 09/27/22 04:00 BP 151/79 09/27/22 04:00 Pulse Ox 94 L 09/27/22 04:00 FiO2 30 09/27/22 04:09 Intake & Output 09/26/22 09/27/22 09/27/22 18:59 06:59 18:59 Intake Total 880 480 Balance 880 480 Intake: Oral 880 480 Other: # Voids 2 - Labs CBC & Chem 7: 09/27/22 12:37 09/27/22 08:36 Labs: Abnormal Lab Results - Last 24 Hours (Table) 09/26/22 09/26/22 Range/Units 17:00 20:30 POC Glucose (mg/dL) 152 H 119 H (70-110) mg/dL
[2022-09-27 19:58] LABS: Glucose,Whole Blood 139 mg/dL (70-110)
[2022-09-27] MEDS: rOPINIRole HCL 4 MG TABLET PO SCH (20:01)
[2022-09-27] MEDS: MONTELUKAST 10 MG TAB PO SCH (20:01)
[2022-09-27] MEDS: ALBUTEROL NEBULIZED 2.5 MG/3 ML INHALATION PRN (23:22)
[2022-09-28 06:25] LABS: Glucose,Whole Blood 159 mg/dL (70-110)
[2022-09-28] MEDS: INSULIN ASPART (NovoLOG) 100 UNIT/ML VIAL SQ SCH ×2 (06:25→16:08)
[2022-09-28] MEDS: IPRATROPIUM-ALBUTEROL 3 ML NEB INHALATION SCH ×3 (08:48→16:30)
[2022-09-28] MEDS: SYMBICORT 160-4.5 MCG INHALER INHALATION SCH (08:48)
[2022-09-28] MEDS: VERAPAMIL SR 120 MG TABLET.ER PO SCH (09:01)
[2022-09-28] MEDS: predniSONE 20 MG TAB PO SCH (09:01)
[2022-09-28] MEDS: THEOPHYLLINE 24 HOUR 400 MG CAP.ER.24H PO SCH (09:01)
[2022-09-28] MEDS: LORATADINE 10 MG TAB PO SCH (09:01)
[2022-09-28] MEDS: MAGNESIUM OXIDE 400 MG TAB PO SCH (09:01)
[2022-09-28] MEDS: DULoxetine HCL 30 MG CAPSULE.DR PO SCH (09:01)
[2022-09-28] MEDS: HEPARIN SODIUM,PORCINE/PF 5,000 UNIT/0.5 ML SYRINGE SQ SCH (09:02)
[2022-09-28] MEDS: FERROUS SULFATE 325 MG TAB PO SCH (09:02)
[2022-09-28] MEDS: MELOXICAM 7.5 MG TAB PO SCH (09:02)
[2022-09-28 11:57] LABS: Glucose,Whole Blood 149 mg/dL (70-110)
[2022-09-28 12:10] VITALS: RESP 20; TEMP 98
--- NOTE | 2022-09-28 13:41 | P.PN ---
Subjective Progress Note Date: 09/28/22 Principal diagnosis: Acute exacerbation of COPD This is a very pleasant 67-year-old female patient with a history of hypertension, rheumatoid arthritis, chronic lower extremity edema, attention deficit hyperactivity disorder, chronic back pain, COVID-19 pneumonia, chronic hypoxemic and hypercapnic respiratory failure utilizing oxygen at 4 L at home. She also has a noninvasive positive pressure ventilatory machine for nighttime. She is also noted to have a left upper lobe lung lesion measuring 18 x 13 mm. Based on these findings she was deactivated from the transplant list. Follow-up CAT scan to be performed in September of this year. She follows with Dr. Goodman in our office for the same. She was last discharged for COPD exacerbation on 08/29/2022. She presented here to the emergency room earlier today with complaints of increasing shortness of breath, cough and congestion for the past 6 days. His x-ray reveals some right upper lobe linear scarring or atelectasis without change. No congestive heart failure. White count 12.4. Hemoglobin 11.7. Sodium 136. Potassium 4.3. BUN 21. Creatinine 0.72. Glucose 134. Troponin negative 1. She's been initiated on Symbicort, IV Solu-Medrol, DuoNeb inhalations. Empiric antibiotics in the form of azithromycin. She is seen today in consultation in the emergency department. She is currently sitting up on the stretcher. Awake and alert in no acute distress maintaining O2 saturations in the mid 90s on 3 L/m per nasal cannula. She's been afebrile. On today's evaluation of 09/19/2022, the patient is doing well. No altered mentation. No chest pain. No shortness of breath. She does have chronic s hortness of breath and acute exacerbation of her chronic COPD is gradually improving. The patient remains on IV Solu-Medrol. The patient had a CAT scan of the chest that was done on 09/18/2022 and this was done to rule out possibility of malignancy. The CAT scan showed a stable left upper lobe 60 mm groundglass pulmonary nodule which has not changed compared to the earlier CAT scan from 08/28/2022. At the same time, the patient scintiscan of the chest showed no evidence of any pneumonia. There was evidence of linear atelectasis/scarring in the right involving the inferior aspect of the right upper lobe along the fissure. No significant change in the overall findings. Left upper lobe pulmonary nodule remains stable. No mediastinal lymphadenopathy. No hemoptysis. No pleurisy. No chest pain. No other complaints and the patient's blood work from today shows a white cell count of 8.9 with a hemoglobin of 11 BUN of 24 creatinine of 0.69 and a sodium level is at 140. On 09/20/2022, the patient is still bronchospastic and wheezy and the patient is slightly worse compared to yesterday. For that reason, we elected to keep the patient over the next 24-48 hours for IV steroid treatment. The patient is still receiving IV Solu-Medrol 60 mg every 6 hours. She remains on Symbicort as maintenance and addition of breath treatments are being also utilizing combination with ipratropium might 4 times a day. The patient on empiric antibiotic coverage with Zithromax. Rest of the medications remain unchanged. No new complaint otherwise. No altered mentation. No chest pain or pleurisy. 09/21/2022, the patient is feeling slightly better. She has no new complaints. She remains on DuoNeb about treatments [id number] and she is also on IV Solu-Medrol. No major side effects from the systemic steroid treatment. The patient is on theophylline also. She is completing a 5 day course of Zithromax 500 mg by mouth daily. No fever. No chills. No significant hyperglycemia. No labs from today. No pleurisy or hemoptysis. 09/22/2022, the patient is gradually improving. We'll keep him IV Solu-Medrol for another 24 hours. No new complaints. She still being treated for an acute COPD exacerbation. Noted the patient has advanced COPD. She is on DuoNeb neb treatments [id number], on Symbicort, theophylline and doxycycline as an empiric antibiotic coverage in combination with IV Rocephin. The labs are stable. Serum bicarbs of 41, BUN 32 with a creatinine of 0.8.ECOG is at 10.3 hemoglobin of 11.2. And a platelet count of 332. 09/23/2022, the patient was found to be lethargic and somewhat confused this morning. By the time I arrived to her in this afternoon, the patient was feeling better and she is not having any specific complaints. No chest pain. On her blood work, she was noted to be quite alkalotic and the patient's blood work showed a serum bicarb of 41 and a sodium level was at 141 with a potassium level of 4.5. This is blood work from yesterday. The discomfort of 10.1 with a hemoglobin of 11.2. No blood work was done today. Her chest x-ray from yesterday showed mild cardiomegaly and underlying COPD with mild patchy basilar infiltrate/atelectasis. No acute process was seen. The patient remains on albuterol rescue with [id number]. She was given 2 doses of Diamox to counteract her metabolic alkalosis. She remains on IV Solu-Medrol. On 09 24 2022, the patient is doing well. She is awake and alert. No new comp laints otherwise for now. No chest pain. She is chronically short of breath bronchospastic and wheezy. She remains on IV Solu-Medrol. She remains on bronchodilators. The patient is moving all 4 extremities without any limitation. No altered mentation. No significant encephalopathy on today's evaluation. Reevaluated today on 09/25/22, patient remains on the same medications, continues to have shortness of breath, intermittent wheezing, feeling better, remains on her usual bronchodilators and on IV Solu-Medrol. Again minimal improvement, patient has BiPAP at bedside but she is not compliant with it. She is presently on 4 L nasal cannula Reevaluated today on 09/26/22, feeling a bit better today compared to yesterday, less cough and less wheezing less shortness of breath. Remains on maximal therapy for COPD exacerbation. Remains on oxygen at 4 L/m. No labs were done today except blood sugar 106. Reevaluated today on 09/27/22, patient is basically about the same, continues to have intermittent episodes of cough wheezing shortness of breath, patient is on maximal therapy for her COPD, however considering his severe COPD, the patient has severe end-stage, and I believe she would always end up readmitted no matter when she gets discharged home. In the meantime I believe the patient should be considered for discharge planning in the next 24 hours especially if the patient is already feeling better, and again she is maximal on therapy. Reevaluated today on 09/28/22, patient is doing a bit better today, less cough and less wheezing less shortness of breath, I'm clearing the patient to be discharged home today. She will need to be discharged on prednisone 40 mg taper ed over the next 2 weeks down to her maintenance dose of 10 mg daily. And she needs to go back on her usual medication/bronchodilators Objective - Vital Signs Vital signs: Vital Signs Temp 98.0 F 09/28/22 08:00 Pulse 96 09/28/22 13:02 Resp 20 09/28/22 08:00 BP 160/76 09/28/22 08:00 Pulse Ox 100 09/28/22 08:00 FiO2 30 09/28/22 08:48 Intake & Output 09/27/22 09/28/22 09/28/22 18:59 06:59 18:59 Intake Total 840 598 Output Total 1999 Balance -1160 598 Intake: Oral 840 598 Output: Urine 1999 Other: # Voids 1 # Bowel Movements 2 - Exam Physical Exam: Revealed a 67-year-old female obese in no distress, on 4 L nasal cannula Head: Atraumatic, normocephalic. HEENT:[Neck is supple.] [No neck masses.] [No thyromegaly.] [No JVD.] Chest: [Diminished breath sound bilaterally no rhonchi no wheezes Cardiac Exam: [Normal S1 and S2, no S3 gallop, no murmur.] Abdomen: [Soft, nontender, no megaly, no rebound, no guarding, normal bowel sounds.] Extremities: [No clubbing, no edema, no cyanosis.] Neurological Exam: [No focal neurologic deficit.] Alert oriented 3 Psychiatric: Normal mood affect and normal mental status. Skin: No rashes - Labs CBC & Chem 7: 09/27/22 12:37 09/27/22 08:36 Labs: Abnormal Lab Results - Last 24 Hours (Table) 09/27/22 09/27/22 09/28/22 Range/Units 16:27 19:56 06:24 POC Glucose (mg/dL) 251 H 139 H 159 H (70-110) mg/dL 09/28/22 Range/Units 11:55 POC Glucose (mg/dL) 149 H (70-110) mg/dL Assessment and Plan Assessment: Impression: Acute exacerbation of chronic obstructive pulmonary disease, Acute on chronic hypoxemic respiratory failure Acute on chronic hypercapnic respiratory failure secondary to above, has BiPAP at bedside. History of a left upper lobe lesion measuring 18 x 13 mm in size. Needs outpatient follow-up History of CoVID in 19 pneumonia History of chronic lower extremity edema Hypertension Attention deficit hyperactivity disorder Rheumatoid arthritis Chronic back pain Former smoker Recommendation: Continue present supportive care measures Continue steroids and bronchodilators/prednisone burst and taper starting at 40 mg and tapered over the next 2 weeks down to 10 mg made Continue Diamox. Will clear for discharge today, and discharge home today, continue present medications, patient does not need any more antibiotics on outpatient basis, will need to resume her usual bronchodilators, and the prednisone 40 mg to be tapered over the next 2 weeks down to her usual maintenance dose of 10 mg daily. Patient to follow-up with Dr. Goodman. Time with Patient: Less than 30
[2022-09-28 14:24] VITALS: PULSE 100
--- NOTE | 2022-09-28 16:12 | P.DS ---
Providers Date of admission: 09/18/22 17:18 Expected date of discharge: 09/28/22 Attending physician: Frank Melvin MD Consults: 09/18/22 17:01 Consult Physician Routine Consulting Provider: Jose Elias Goodman Consult Reason/Comments: COPD exacerbation Do you want consulting provider notified?: Yes 09/18/22 17:25 Consult to Palliative Care Routine Consulting Provider: Cristina Pollard Consult Reason/Comments: COPD end stage Do you want consulting provider notified?: Yes Primary care physician: Nathanael Buchanan MD Hospital Course: Discharge Diagnosis: Acute COPD exacerbation Acute on chronic respiratory failure with hypoxia and hypercarbia home oxygen dependent Hypertension. Monitor vital signs and continue daily medication regimen with verapamil. Rheumatoid arthritis. Continue daily medication regimen with Mobic and Tylenol. Chronic back pain. Continue daily medication regimen with Mobic and Tylenol. Hospital Course: Patient is a very pleasant 67-year-old female with a past medical history of advanced COPD home oxygen dependent on 3 L at all times, hypertension, rheuma toid arthritis, and chronic back pain. She presented to the emergency department on 09/18/22 with a chief complaint of worsening shortness of breath. Patient underwent full evaluation in the emergency department. She was found to be afebrile, hypoxic 78% on room air, requiring 4 L nasal cannula, tachypneic breathing at rate of 26, pulse rate was 91, blood pressure 124/74. CBC revealed mild leukocytosis at 12.4, otherwise unremarkable. Chemistries show sodium of 136, chloride 95, CO2 of 38, BUN 21, creatinine of 0.72. Liver function tests are unremarkable. Troponin was less than 0.012. Chest x-ray shows right upper lobe linear scarring without change when compared to prior. EKG shows sinus rhythm with frequent PACs. The patient was started on Solu-Medrol, nebulizers, and admitted to medicine for further evaluation and management with consultation to pulmonology and palliative care. Patient underwent a 10 day hospitalization for an acute exacerbation of her chronic obstructive pulmonary disease. Patient back to baseline respiratory status at this time. Discussed with iron handler and recommending 16 day prednisone taper upon discharge. Patient instructed she will need to follow up outpatient with PCP and iron handler. Patient medically stable for discharge home at this time. Physical exam: Vital signs reviewed and stable. General: Nontoxic, no distress and appears stated age. Derm: Skin warm and dry, normal coloration for ethnicity. Head: Atraumatic, normocephalic and symmetric. Eyes: EOMs intact, no lid lag, and anicteric sclera Mouth: no lip lesions, mucus membranes moist Cardiovascular: regular rate and rhythm with normal S1S2, no murmur, positive posterior tibial pulses bilaterally, and cap refill < 2 seconds. Lungs: Respirations tachypneic and slightly labored with use of accessory muscles. Patient on 3 L O2 via nasal cannula with SpO2 of 93%. Lungs diminished with expiratory wheezes throughout all guzman. Abdominal: soft, nontender to palpation, no guarding, no appreciable organomegaly Ext: ROM intact. No gross muscle atrophy, no edema, no contractures Neuro: Speech clear, face symmetrical and CN II-XII grossly intact with no noted focal neuro deficits Psych: Alert and oriented to person, place, time, and situation. Appropriate and pleasant affect. A total of 33 minutes of time were spent preparing this complex discharge summary. Pt was discharged on 09/28/22 at 4:05 PM. Patient Condition at Discharge: Stable Plan - Discharge Summary Discharge Rx Participant: No New Discharge Prescriptions: New predniSONE See Taper PO DIRECTED 16 Days #40 tab Continue DULoxetine HCL [Cymbalta] 30 mg PO DAILY Montelukast [Singulair] 10 mg PO HS Meloxicam 15 mg PO DAILY Budesonide [Pulmicort] 0.5 mg INHALATION RT-BID rOPINIRole HCL [Requip] 4 mg PO HS Verapamil HCl [Verapamil ER] 120 mg PO DAILY Ferrous Sulfate [Iron (65 MG Elemental)] 325 mg PO DAILY Magnesium Oxide [Mag-Ox] 200 mg PO DAILY Cetirizine HCl 10 mg PO DAILY Albuterol Sulfate [Ventolin HFA] 2 puff INHALATION RT-Q6H PRN PRN Reason: Shortness Of Breath Theophylline 24 Hour [Sekou-24] 400 mg PO DAILY Ipratropium-Albuterol Nebulize [Duoneb 0.5 mg-3 mg/3 ml Soln] 3 ml INHALATION RT-QID Formoterol Fumarate [Perforomist] 20 mcg INHALATION RT-BID Discharge Medication List DULoxetine HCL [Cymbalta] 30 mg PO DAILY 01/15/21 [History] Montelukast [Singulair] 10 mg PO HS 02/19/21 [History] Ferrous Sulfate [Iron (65 MG Elemental)] 325 mg PO DAILY 07/04/21 [History] Magnesium Oxide [Mag-Ox] 200 mg PO DAILY 07/14/21 [History] Meloxicam 15 mg PO DAILY 08/05/21 [History] Cetirizine HCl 10 mg PO DAILY 04/20/22 [History] Albuterol Sulfate [Ventolin HFA] 2 puff INHALATION RT-Q6H PRN 08/24/22 [History] Budesonide [Pulmicort] 0.5 mg INHALATION RT-BID 09/19/22 [History] Formoterol Fumarate [Perforomist] 20 mcg INHALATION RT-BID 09/19/22 [History] Ipratropium-Albuterol Nebulize [Duoneb 0.5 mg-3 mg/3 ml Soln] 3 ml INHALATION RT-QID 09/19/22 [History] Theophylline 24 Hour [Sekou-24] 400 mg PO DAILY 09/19/22 [History] Verapamil HCl [Verapamil ER] 120 mg PO DAILY 09/19/22 [History] rOPINIRole HCL [Requip] 4 mg PO HS 09/19/22 [History] predniSONE See Taper PO DIRECTED 16 Days #40 tab 09/28/22 [Rx] Follow up Appointment(s)/Referral(s): [facility] [NON-STAFF] - [facility], [NON-STAFF] - [facility] [REFERRING] - Nathanael Buchanan MD [Primary Care Provider] - 1-2 days Care,[facility] [NON-STAFF] - Jose Elias Goodman MD [STAFF PHYSICIAN] - 1 Week Patient Instructions/Handouts: Emphysema (DC), COPD (Chronic Obstructive Pulmonary Disease) (DC), Chronic Lung Disease and Infection Prevention (DC), Energy Conservation Techniques (ED), Nutrition Guidelines for People with COPD (DC), High Flow Nasal Cannula (DC) Activity/Diet/Wound Care/Special Instructions: PT REQUESTS INFLUENZA VACCINE PRIOR TO DISCHARGE. You must follow up with Dr. buchanan before homecare can come see you. Call [facility] after you go to your follow up with Dr. buchanan. Discharge/Stand Alone Forms: Who Do I Call?, Personal Woods Overseer Discharge Disposition: HOME WITH HOME HEALTH SERVICES
[2022-09-28 16:38] VITALS: BP 144/67
[2022-09-28] MEDS ORDERED: INFLUENZA VACC HIGH-DOSE (65+) 240 MCG/0.7 ML SYRINGE IM ONE (16:46)
[2022-09-28 17:05] LABS: Glucose,Whole Blood 121 mg/dL (70-110)
== END 2022-09-28 18:23 | disposition home health service (06) | DRG 190 ==
LOC: EC 14:25 → 3SCARD 17:18
PROVIDERS: ADMIT Internal Medicine; ATTEND Internal Medicine
DX: J44.1 Chronic obstructive pulmonary disease with (acute) exacerbation (principal); J96.21 Acute and chronic respiratory failure with hypoxia; J96.22 Acute and chronic respiratory failure with hypercapnia; E87.3 Alkalosis; J98.11 Atelectasis; I11.9 Hypertensive heart disease without heart failure; M06.9 Rheumatoid arthritis, unspecified; G25.81 Restless legs syndrome; F32.A Depression, unspecified; Z99.81 Dependence on supplemental oxygen; G89.29 Other chronic pain; M54.9 Dorsalgia, unspecified; H91.93 Unspecified hearing loss, bilateral; M85.80 Other specified disorders of bone density and structure, unspecified site; D72.829 Elevated white blood cell count, unspecified; F90.9 Attention-deficit hyperactivity disorder, unspecified type; R60.0 Localized edema; G47.00 Insomnia, unspecified; F41.9 Anxiety disorder, unspecified; R91.1 Solitary pulmonary nodule; Z96.651 Presence of right artificial knee joint; Z91.199 Patient's noncompliance with other medical treatment and regimen due to unspecified reason; Z85.038 Personal history of other malignant neoplasm of large intestine; Z85.44 Personal history of malignant neoplasm of other female genital organs; Z86.16 Personal history of COVID-19; Z87.01 Personal history of pneumonia (recurrent); Z87.891 Personal history of nicotine dependence; Z97.4 Presence of external hearing-aid; Z79.899 Other long term (current) drug therapy; Z79.1 Long term (current) use of non-steroidal anti-inflammatories (NSAID); Z79.51 Long term (current) use of inhaled steroids; Z86.14 Personal history of Methicillin resistant Staphylococcus aureus infection; Z88.8 Allergy status to other drugs, medicaments and biological substances; Z88.5 Allergy status to narcotic agent; Z91.048 Other nonmedicinal substance allergy status
CPT/HCPCS: 36415; 71045; 71046; 71260; 80048; 80053; 82565; 83605; 83735; 84145; 84484; 84520; 85025; 85027; 85610; 85730; 87040; 93005; 94640; 94660; 94760; 96374; 99291

== ENCOUNTER → 2022-09-18 | Outpatient (CLI) | payer MEDICARE, OTHER ==
[2022-09-18 14:02] LABS: African American GFR (CKD) >90 (>60 ml/min/1.73 sqM); Blood Urea Nitrogen 20 mg/dL (7-17); Non-African American GFR(CKD) >90 (>60 ml/min/1.73 sqM)
--- NOTE | 2022-09-18 14:58 | CT ---
EXAMINATION TYPE: CT chest w con CT DLP: 490.7 mGycm, Automated exposure control for dose reduction was used. DATE OF EXAM: 09/18/2022 2:37 PM COMPARISON: 08/28/2022 CLINICAL INDICATION:Female, 67 years old with history of R91.8 abn finding of lung field;f/u abnormal chest scan TECHNIQUE: Multiple axial images were obtained through the chest. Sagittal and coronal reformats were created for review. Contrast used:70cc mL of Isovue 300 with IV Contrast Oral contrast used: none. FINDINGS: LUNGS/ PLEURA: Redemonstration of linear atelectasis/scarring most pronounced on the right involving the inferior aspect of the right upper lobe along the fissure. Overall not significant changed with a more nodular portion measuring up to 9 mm in thickness. 16 mm left upper lobe, less pulmonary nodule AIRWAY: Patent and unremarkable. HEART: Heart is mildly enlarged for size with coronary artery atherosclerosis. MEDIASTINUM: No gross evidence of adenopathy. VASCULATURE: No aortic aneurysm. MUSCULOSKELETAL: No acute osseous abnormalities SOFT TISSUES/LYMPH NODES: Unremarkable. LOWER NECK: No significant findings. UPPER ABDOMEN: Diffuse low-attenuation to the liver. IMPRESSION: 1. Similar left upper lobe 16 mm groundglass nodule. Continued attention on follow-up imaging in 6 m [facility] low-dose CT chest. 2. Thickening of the right major fissure most pronounced near the lung apex not significantly change d from 08/27/2022. Attention follow-up imaging.
== END | disposition home or self-care (01) ==
LOC: RADCTMAIN 13:12
PROVIDERS: ATTEND Internal Medicine Critical Care Medicine
DX: R91.1 Solitary pulmonary nodule (principal); J98.4 Other disorders of lung
CPT/HCPCS: 82565; 84520; 71260; 36415; Q9967

== ENCOUNTER 2022-10-09 21:06 | Inpatient (IN) | payer MEDICARE, OTHER ==
[2022-10-09] MEDS ORDERED: DEXAMETHASONE SOD PHOSPHATE 10 MG/ML 1 ML VIAL IV STA (21:16)
[2022-10-09] MEDS ORDERED: IPRATROPIUM 0.5 MG/2.5 ML NEBU INHALATION STA (21:16)
[2022-10-09] MEDS ORDERED: ALBUTEROL NEBULIZED 2.5 MG/3 ML INHALATION STA (21:16)
--- NOTE | 2022-10-09 21:18 | ED ---
General Adult HPI - General Chief complaint: Shortness of Breath Stated complaint: DOMI Time Seen by Provider: 10/09/22 21:07 Source: patient Mode of arrival: ambulatory Limitations: no limitations - History of Present Illness Initial comments: Dictation was produced using [employer] dictation software. please excuse any grammatical, word or spelling errors. Chief Complaint: 67-year-old male presents emergency department for shortness of breath 3-4 days History of Present Illness: Patient is a 67-year-old female she has past medical history of COPD. She is on 3 L of home oxygen at all times. Patient's been short of breath the last 3-4 days. States that it feels that her COPD. Denies any fever. No constitutional symptoms. Denies any chest pain. No leg swelling. 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 Goodman. Patient arrived via EMS from home. The ROS documented in this emergency department record has been reviewed and confirmed by me. Those systems with pertinent positive or negative responses have been documented in the HPI. All other systems are other negative and/or noncontributory. PHYSICAL EXAM: General Impression: Alert and oriented x3, dyspneic HEENT: Normocephalic atraumatic, extra-ocular movements intact, pupils equal and reactive to light bilaterally, mucous membranes moist. Cardiovascular: Heart regular rate and rhythm Chest: 3-4 word sentences, mild pursed lip breathing, poor air exchange, diffuse lung wheezing Abdomen: abdomen soft, non-tender, non-distended, no organomegaly Musculoskeletal: Pulses present and equal in all extremities, no peripheral edema Motor: no focal deficits noted Neurological: CN II-XII grossly intact, no focal motor or sensory deficits noted Skin: Intact with no visualized rashes Psych: Normal affect and mood ED course: 67-year-old female presents to the emergency department clinical presentation consistent with COPD exacerbation. History of present illness obtained from EMS and patient. Patient has extensive history of COPD. Patient treated with steroids and continue breathing treatments. Old charts reviewed Laboratory evaluation obtained. CBC, coag panel, metabolic panel within acceptable limits. Venous blood gas shows CO2 retention with some metabolic compensation. PCO2 is 84. 4 panel viral PCR is negative. Cardiac enzymes negative. X-ray interpreted by me showing no acute processes. [facility] admitted [facility] for pulmonary consultation, round the clock breathing treatments and medical monitoring Case discussed with Dr. Cortes Critical Care: no Critical Care time: n/a - Related Data Home Medications Medication Instructions Recorded Confirmed DULoxetine HCL [Cymbalta] 30 mg PO DAILY 01/15/21 09/19/22 Montelukast [Singulair] 10 mg PO HS 02/19/21 09/19/22 Ferrous Sulfate [Iron (65 MG 325 mg PO DAILY 07/04/21 09/19/22 Elemental)] Magnesium Oxide [Mag-Ox] 200 mg PO DAILY 07/14/21 09/19/22 Meloxicam 15 mg PO DAILY 08/05/21 09/19/22 Cetirizine HCl 10 mg PO DAILY 04/20/22 09/19/22 Albuterol Sulfate [Ventolin HFA] 2 puff INHALATION RT-Q6H PRN 08/24/22 09/19/22 Budesonide [Pulmicort] 0.5 mg INHALATION RT-BID 09/19/22 09/19/22 Formoterol Fumarate [Perforomist] 20 mcg INHALATION RT-BID 09/19/22 09/19/22 Ipratropium-Albuterol Nebulize 3 ml INHALATION RT-QID 09/19/22 09/19/22 [Duoneb 0.5 mg-3 mg/3 ml Soln] Theophylline 24 Hour [Sekou-24] 400 mg PO DAILY 09/19/22 09/19/22 Verapamil HCl [Verapamil ER] 120 mg PO DAILY 09/19/22 09/19/22 rOPINIRole HCL [Requip] 4 mg PO HS 09/19/22 09/19/22 Previous Rx's Medication Instructions Recorded predniSONE See Taper PO DIRECTED 16 Days 09/28/22 #40 tab Allergies Allergy/AdvReac Type Severity Reaction Status Date / Time infliximab [From Remicade] Allergy Dyspnea/HIV Verified 10/09/22 21:16 ES propoxyphene [From Darvon] Allergy Rash/Hives Verified 10/09/22 21:16 adhesive tape AdvReac "is hard Verified 10/09/22 21:16 on skin" Review of Systems ROS Statement: Those systems with pertinent positive or pertinent negative responses have been documented in the HPI. ROS Other: All systems not noted in ROS Statement are negative. 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 History of Any Multi-Drug Resistant Organisms: MRSA Date of last positivie culture/infection: february 2021 MDRO Source:: urine Past Surgical History: Appendectomy, Back Surgery, Bowel Resection, Ear Surgery, Hysterectomy, Joint Replacement Additional Past Surgical History / Comment(s): Partial vulvectomy, TAD with unilateral oophorectomy, R colectomy, EGD, colonoscopy, total R knee arthroplasty, kyphoplasty/bx, pain procedures, bilateral myringotomy/tubes. Past Anesthesia/Blood Transfusion Reactions: No Reported Reaction Additional Past Anesthesia/Blood Transfusion Reaction / Comment(s): States is not supposed to have general anesthesia. "Cannot have tube in throat." Past Psychological History: ADD/ADHD, Anxiety, Depression Smoking Status: Former smoker - Past Family History Father Family Medical History: Cancer, COPD Additional Family Medical History / Comment(s): COLON cancer. Mother Family Medical History: Cancer Additional Family Medical History / Comment(s): ESOPHAGUS cancer. Sister(s) Family Medical History: Cancer Additional Family Medical History / Comment(s): CERVICAL cancer, basal cell cancer. General Exam Limitations: no limitations Course Vital Signs 10/09/22 10/09/22 10/09/22 21:07 21:32 21:52 Temperature 98.4 F Pulse Rate 75 80 88 Respiratory 18 Rate Blood Pressure 137/101 O2 Sat by Pulse 94 L Oximetry 10/09/22 22:56 Temperature Pulse Rate 92 Respiratory 18 Rate Blood Pressure 128/70 O2 Sat by Pulse 91 L Oximetry Medical Decision Making - Lab Data Result diagrams: 10/09/22 21:21 10/09/22 21:21 Lab Results 10/09/22 10/09/22 10/09/22 Range/Units 21:21 21:21 21:21 WBC 10.8 H (3.8-10.6) k/uL RBC 3.37 L (3.80-5.40) m/uL Hgb 10.9 L (11.4-16.0) gm/dL Hct 32.8 L (34.0-46.0) % MCV 97.3 (80.0-100.0) fL MCH 32.4 (25.0-35.0) pg MCHC 33.3 (31.0-37.0) g/dL RDW 14.9 (11.5-15.5) % Plt Count 191 (150-450) k/uL MPV 9.3 Neutrophils % 77 % Lymphocytes % 15 % Monocytes % 5 % Eosinophils % 1 % Basophils % 0 % Neutrophils # 8.3 H (1.3-7.7) k/uL Lymphocytes # 1.6 (1.0-4.8) k/uL Monocytes # 0.6 (0-1.0) k/uL Eosinophils # 0.1 (0-0.7) k/uL Basophils # 0.0 (0-0.2) k/uL Hypochromasia Slight PT 9.6 (9.0-12.0) sec INR 0.9 (<1.2) APTT 25.0 (22.0-30.0) sec VBG pH (7.31-7.41) VBG pCO2 (37-51) mmHg VBG HCO3 (24-28) mmol/L Sodium 139 (137-145) mmol/L Potassium 4.2 (3.5-5.1) mmol/L Chloride 96 L (98-107) mmol/L Carbon Dioxide 40 H (22-30) mmol/L Anion Gap 3 mmol/L BUN 12 (7-17) mg/dL Creatinine 0.55 (0.52-1.04) mg/dL Est GFR (CKD-EPI)AfAm >90 (>60 ml/min/1.73 sqM) Est GFR (CKD-EPI)NonAf >90 (>60 ml/min/1.73 sqM) Glucose 110 H (74-99) mg/dL Calcium 8.6 (8.4-10.2) mg/dL Magnesium 2.2 (1.6-2.3) mg/dL Troponin I (0.000-0.034) ng/mL NT-Pro-B Natriuret Pep pg/mL Influenza Type A (PCR) (Not Detectd) Influenza Type B (PCR) (Not Detectd) RSV (PCR) (Not Detectd) SARS-CoV-2 (PCR) (Not Detectd) 10/09/22 10/09/22 10/09/22 Range/Units 21:21 21:21 21:21 WBC (3.8-10.6) k/uL RBC (3.80-5.40) m/uL Hgb (11.4-16.0) gm/dL Hct (34.0-46.0) % MCV (80.0-100.0) fL MCH (25.0-35.0) pg MCHC (31.0-37.0) g/dL RDW (11.5-15.5) % Plt Count (150-450) k/uL MPV Neutrophils % % Lymphocytes % % Monocytes % % Eosinophils % % Basophils % % Neutrophils # (1.3-7.7) k/uL Lymphocytes # (1.0-4.8) k/uL Monocytes # (0-1.0) k/uL Eosinophils # (0-0.7) k/uL Basophils # (0-0.2) k/uL Hypochromasia PT (9.0-12.0) sec INR (<1.2) APTT (22.0-30.0) sec VBG pH (7.31-7.41) VBG pCO2 (37-51) mmHg VBG HCO3 (24-28) mmol/L Sodium (137-145) mmol/L Potassium (3.5-5.1) mmol/L Chloride (98-107) mmol/L Carbon Dioxide (22-30) mmol/L Anion Gap mmol/L BUN (7-17) mg/dL Creatinine (0.52-1.04) mg/dL Est GFR (CKD-EPI)AfAm (>60 ml/min/1.73 sqM) Est GFR (CKD-EPI)NonAf (>60 ml/min/1.73 sqM) Glucose (74-99) mg/dL Calcium (8.4-10.2) mg/dL Magnesium (1.6-2.3) mg/dL Troponin I <0.012 (0.000-0.034) ng/mL NT-Pro-B Natriuret Pep 278 pg/mL Influenza Type A (PCR) Not Detected (Not Detectd) Influenza Type B (PCR) Not Detected (Not Detectd) RSV (PCR) Not Detected (Not Detectd) SARS-CoV-2 (PCR) Not Detected (Not Detectd) 10/09/22 Range/Units 21:21 WBC (3.8-10.6) k/uL RBC (3.80-5.40) m/uL Hgb (11.4-16.0) gm/dL Hct (34.0-46.0) % MCV (80.0-100.0) fL MCH (25.0-35.0) pg MCHC (31.0-37.0) g/dL RDW (11.5-15.5) % Plt Count (150-450) k/uL MPV Neutrophils % % Lymphocytes % % Monocytes % % Eosinophils % % Basophils % % Neutrophils # (1.3-7.7) k/uL Lymphocytes # (1.0-4.8) k/uL Monocytes # (0-1.0) k/uL Eosinophils # (0-0.7) k/uL Basophils # (0-0.2) k/uL Hypochromasia PT (9.0-12.0) sec INR (<1.2) APTT (22.0-30.0) sec VBG pH 7.34 (7.31-7.41) VBG pCO2 84 H* (37-51) mmHg VBG HCO3 44 H (24-28) mmol/L Sodium (137-145) mmol/L Potassium (3.5-5.1) mmol/L Chloride (98-107) mmol/L Carbon Dioxide (22-30) mmol/L Anion Gap mmol/L BUN (7-17) mg/dL Creatinine (0.52-1.04) mg/dL Est GFR (CKD-EPI)AfAm (>60 ml/min/1.73 sqM) Est GFR (CKD-EPI)NonAf (>60 ml/min/1.73 sqM) Glucose (74-99) mg/dL Calcium (8.4-10.2) mg/dL Magnesium (1.6-2.3) mg/dL Troponin I (0.000-0.034) ng/mL NT-Pro-B Natriuret Pep pg/mL Influenza Type A (PCR) (Not Detectd) Influenza Type B (PCR) (Not Detectd) RSV (PCR) (Not Detectd) SARS-CoV-2 (PCR) (Not Detectd) Disposition Clinical Impression: COPD exacerbation Disposition: ADMITTED IP TO THIS HOSP Condition: Fair Referrals: Nathanael Mckeon MD [Primary Care Provider] - 1-2 days Decision Time: 23:29
[2022-10-09 21:40] LABS: Basophils % (A) 0 %; Eosinophils # (A) 0.1 k/uL (0-0.7); Eosinophils % (A) 1 %; HCT 32.8 % (34.0-46.0); HGB 10.9 gm/dL (11.4-16.0); Hypochromasia Slight; Lymphocytes # (A) 1.6 k/uL (1.0-4.8); Lymphocytes % (A) 15 %; MCH 32.4 pg (25.0-35.0); MCHC 33.3 g/dL (31.0-37.0); MCV 97.3 fL (80.0-100.0); Mean Platelet Volume 9.3; Monocytes # (A) 0.6 k/uL (0-1.0); Monocytes % (A) 5 %; Neutrophils # (A) 8.3 k/uL (1.3-7.7); Neutrophils % (A) 77 %; Platelet Count 191 k/uL (150-450); RBC 3.37 m/uL (3.80-5.40); RDW 14.9 % (11.5-15.5); WBC 10.8 k/uL (3.8-10.6)
[2022-10-09 21:46] LABS: INR 0.9 (<1.2); Prothrombin Time 9.6 sec (9.0-12.0)
[2022-10-09 21:52] LABS: African American GFR (CKD) >90 (>60 ml/min/1.73 sqM); Anion Gap 3 mmol/L; Blood Urea Nitrogen 12 mg/dL (7-17); Calcium 8.6 mg/dL (8.4-10.2); Chloride 96 mmol/L (98-107); Glucose 110 mg/dL (74-99); Magnesium 2.2 mg/dL (1.6-2.3); Non-African American GFR(CKD) >90 (>60 ml/min/1.73 sqM); Potassium 4.2 mmol/L (3.5-5.1); Sodium 139 mmol/L (137-145)
[2022-10-09 22:00] LABS: VBG PH 7.34 (7.31-7.41)
[2022-10-09 22:12] LABS: Carbon Dioxide 40 mmol/L (22-30)
--- NOTE | 2022-10-09 22:43 | XR ---
EXAMINATION TYPE: XR chest 2V DATE OF EXAM: 10/09/2022 COMPARISON: 09/22/2022 HISTORY: Short of breath TECHNIQUE: FINDINGS: There is no heart failure nor confluent pneumonic infiltrate. There is some mild coarsening of interstitial markings. There are no hilar masses. No pleural effusion. There is osteopenia and an terior wedging of multiple mid thoracic vertebra. IMPRESSION: Osteopenia. No heart failure or pulmonary consolidation. Mild pulmonary fibrotic changes and subsegmental atelectasis.
[2022-10-09] MEDS ORDERED: NALOXONE 0.4 MG/ML 1 ML VIAL IVP PRN (23:21)
[2022-10-10] MEDS: AZITHROMYCIN 500 MG TAB PO SCH ×2 (00:55→09:14)
[2022-10-10] MEDS ORDERED: LORazepam 2 MG/ML INJ IV ONE (03:48)
--- NOTE | 2022-10-10 03:50 | P.HPIM ---
History of Present Illness H&P Date: 10/10/22 Chief Complaint: SOB 67 year old female with end stage COPD on home oxygen 3 L patient coming in due to worsening SOB over the past 4 days , with unchanged chronic cough, non productive, denies fever ,chills, chest pain. denies runny nose, body aches or sore throat. however she does report using her nebulizers with no much benefit, patient on home oxygen. she is finding it very difficult to ambulate due to severe SOB. she has frequent hospitalizations for the same problem. everytime she weans off the steroids she relapses. denies any sick contact, denies any usual body aches, fever, denies abd pain, nausea or vomiting , denies any changes in bowel or urinary habits workup in the ED, showed chronic anemia , CXR no new infilterates. ABG hypercapnia compensated. patient denies any recent traveling, denies any history of blood clots Review of Systems Pertinent positives as noted in HPI. 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 History of Any Multi-Drug Resistant Organisms: MRSA Date of last positivie culture/infection: february 2021 MDRO Source:: urine Past Surgical History: Appendectomy, Back Surgery, Bowel Resection, Ear Surgery, Hysterectomy, Joint Replacement Additional Past Surgical History / Comment(s): Partial vulvectomy, TAD with unilateral oophorectomy, R colectomy, EGD, colonoscopy, total R knee arthroplasty, kyphoplasty/bx, pain procedures, bilateral myringotomy/tubes. Past Anesthesia/Blood Transfusion Reactions: No Reported Reaction Additional Past Anesthesia/Blood Transfusion Reaction / Comment(s): States is not supposed to have general anesthesia. "Cannot have tube in throat." Past Psychological History: ADD/ADHD, Anxiety, Depression Smoking Status: Former smoker - Past Family History Father Family Medical History: Cancer, COPD Additional Family Medical History / Comment(s): COLON cancer. Mother Family Medical History: Cancer Additional Family Medical History / Comment(s): ESOPHAGUS cancer. Sister(s) Family Medical History: Cancer Additional Family Medical History / Comment(s): CERVICAL cancer, basal cell cancer. Medications and Allergies Home Medications Medication Instructions Recorded Confirmed Type DULoxetine HCL [Cymbalta] 30 mg PO DAILY 01/15/21 09/19/22 History Montelukast [Singulair] 10 mg PO HS 02/19/21 09/19/22 History Ferrous Sulfate [Iron (65 MG 325 mg PO DAILY 07/04/21 09/19/22 History Elemental)] Magnesium Oxide [Mag-Ox] 200 mg PO DAILY 07/14/21 09/19/22 History Meloxicam 15 mg PO DAILY 08/05/21 09/19/22 History Cetirizine HCl 10 mg PO DAILY 04/20/22 09/19/22 History Albuterol Sulfate [Ventolin HFA] 2 puff INHALATION RT-Q6H PRN 08/24/22 09/19/22 History Budesonide [Pulmicort] 0.5 mg INHALATION RT-BID 09/19/22 09/19/22 History Formoterol Fumarate [Perforomist] 20 mcg INHALATION RT-BID 09/19/22 09/19/22 History Ipratropium-Albuterol Nebulize 3 ml INHALATION RT-QID 09/19/22 09/19/22 History [Duoneb 0.5 mg-3 mg/3 ml Soln] Theophylline 24 Hour [Sekou-24] 400 mg PO DAILY 09/19/22 09/19/22 History Verapamil HCl [Verapamil ER] 120 mg PO DAILY 09/19/22 09/19/22 History rOPINIRole HCL [Requip] 4 mg PO HS 09/19/22 09/19/22 History predniSONE See Taper PO DIRECTED 16 Days 09/28/22 Rx #40 tab Allergies Allergy/AdvReac Type Severity Reaction Status Date / Time infliximab [From Remicade] Allergy Dyspnea/HIV Verified 10/09/22 21:16 ES propoxyphene [From Darvon] Allergy Rash/Hives Verified 10/09/22 21:16 adhesive tape AdvReac "is hard Verified 10/09/22 21:16 on skin" Physical Exam Vitals: Vital Signs Temp Pulse Resp BP Pulse Ox 10/10/22 03:17 21 10/10/22 02:01 108 H 18 132/99 95 10/09/22 22:56 92 18 128/70 91 L 10/09/22 21:52 88 10/09/22 21:32 80 10/09/22 21:07 98.4 F 75 18 137/101 94 L Intake and Output 10/09/22 10/09/22 10/10/22 14:59 22:59 06:59 Other: Weight 72.575 kg Constitutional: No acute distress, conversant, pleasant Eyes: Anicteric sclerae, moist conjunctiva, Pupils equal round reactive to light ENMT: NC/AT Oropharynx clear, no erythema, or exudates Neck: Supple, no masses, or JVD No carotid bruits No thyromegaly Lungs: diminished breath sounds throughout with expiratory wheezing Clear to percussion Normal respiratory effort, no accessory muscle use Cardiovascular: Heart regular in rate and rhythm, No murmurs, gallops, or rubs No peripheral edema Abdominal: Soft Nontender, no guarding, rebound or rigidity Abdomen moving with respiration Normoactive bowel sounds No hepatomegaly, No splenomegaly No palpable mass No abdominal wall hernia noted Skin: Normal temperature, tone, texture, turgor No induration No subcutaneous nodules No rash, lesions No ulcers Extremities: No digital cyanosis No clubbing Pedal pulses intact and symmetrical Radial pulses intact and symmetrical No calf tenderness Psychiatric: Alert and oriented to person, place and time Appropriate affect fair judgement Neuro Muscles Strength 4/5 in all 4 extremities Sensation to light touch grossly present throughout Cranial nerves II-XII grossly intact Lymphatics: no palpable cervical or supraclavicular lymph nodes Results CBC & Chem 7: 10/09/22 21:21 10/09/22 21:21 Labs: Abnormal Lab Results - Last 24 Hours (Table) 10/09/22 10/09/22 10/09/22 Range/Units 21:21 21:21 21:21 WBC 10.8 H (3.8-10.6) k/uL RBC 3.37 L (3.80-5.40) m/uL Hgb 10.9 L (11.4-16.0) gm/dL Hct 32.8 L (34.0-46.0) % Neutrophils # 8.3 H (1.3-7.7) k/uL VBG pCO2 84 H* (37-51) mmHg VBG HCO3 44 H (24-28) mmol/L Chloride 96 L (98-107) mmol/L Carbon Dioxide 40 H (22-30) mmol/L Glucose 110 H (74-99) mg/dL Assessment and Plan Assessment: acute on chronic hypoxic respiratory failure chronic hypercapnic respiratory failure acute copd exacerbation plan supportive care acute respiratory viral panel negative nebulizers scheduled and PRN systemic PO steroids Azithromycin CXR no new infilterates supplemental oxygen as needed pulmonary consult consider palliative care consult chronic conditions ADHD chronic pain , arthritis hypertension resume home meds chronic anemia full code DVT PPX heparin sc tid
[2022-10-10] MEDS: BUDESONIDE 0.5 MG/2 ML NEBU INHALATION SCH ×2 (08:04→21:28)
[2022-10-10] MEDS: IPRATROPIUM-ALBUTEROL 3 ML NEB INHALATION SCH ×4 (08:04→21:20)
[2022-10-10] MEDS: FORMOTEROL FUMARATE 20 MCG/2 ML NEBU INHALATION SCH ×2 (08:04→21:20)
--- NOTE | 2022-10-10 09:07 | P.PN ---
Subjective Progress Note Date: 10/10/22 Hospital course: Patient is a very pleasant 67-year-old female with a past medical history of advanced COPD home oxygen dependent on 3-4 L at all times, obstructive sleep apnea CPAP dependent nightly, hypertension, iron deficiency anemia, rheumatoid arthritis, and chronic back pain. Patient is very well-known to our services and recently admitted to the hospital for acute COPD exacerbation on 09/18/22 through 09/28/22. At time of discharge, the patient was discharged home on 16 d ay prednisone taper as recommended by substation operator helper and she was instructed that she will need to follow up outpatient with PCP and substation operator helper, patient did not follow up and states that she took the prednisone as prescribed for about 6- 8 days and then she decided to stop. Patient reports after stopping her steroids she noticed she started to again have worsening shortness of breath, wheezing, and cough. Patient reports despite use of her home nebulizer and breathing treatments she remains significantly short of breath with any exertion and called EMS for transfer to the hospital. She underwent full evaluation in the emergency department. CBC revealed leukocytosis with WBC count of 10.8 and normocytic anemia with hemoglobin of 10.9. Coags normal findings. BMP revealing hypercarbia with carbon dioxide of 40. Venous blood gas completed revealing compensated respiratory acidosis with pH of 7.34, pCO2 of 84, and bicarb of 44. Influenza A, influenza B, RSV, and Covid PCR were all negative. Troponin negative at less than 0.012. EKG showing sinus rhythm at 77 bpm with no noted T wave or ST abnormality showing no signs of acute ischemia. Chest x- ray negative for acute cardiopulmonary process, showing right upper lobe scarring and atelectasis unchanged. Patient admitted under our services with consultation cardiology. Physical exam: Vital signs reviewed and stable. General: Nontoxic, no distress and appears stated age. Derm: Skin warm and dry, normal coloration for ethnicity. Head: Atraumatic, normocephalic and symmetric. Eyes: EOMs intact, no lid lag, and anicteric sclera Mouth: no lip lesions, mucus membranes moist Cardiovascular: regular rate and rhythm with normal S1S2, no murmur, positive posterior tibial pulses bilaterally, and cap refill < 2 seconds. Lungs: Respirations even, regular, and unlabored on 3 L O2 via nasal cannula. Lungs with diffuse expiratory wheezing throughout all guzman. Patient has noted conversational dyspnea and accessory muscle usage. Abdominal: soft, nontender to palpation, no guarding, no appreciable organomegaly Ext: ROM intact. No gross muscle atrophy, no edema, no contractures Neuro: Speech clear, face symmetrical and CN II-XII grossly intact with no noted focal neuro deficits Psych: Alert and oriented to person, place, time, and situation. Appropriate and pleasant affect. Assessment and Plan of Care: Acute COPD exacerbation Acute on chronic respiratory failure with hypoxia and hypercarbia secondary to acute COPD exacerbation Medical noncompliance -Pulmonology following -Oxygenation to be administered and titrated as needed to maintain SPO2 equal to or greater than 90% -Telemetry monitoring. -Monitor Pulse-oximetry -Duonebs scheduled for times daily and as needed for SOB and/or wheezing -Incentive Spirometry -Steroids: Prednisone 40 mg daily -Antibiotics: Azithromycin -Continue Formoterol, Pulmicort, Singulair, and Theophylline. -Consult placed to palliative care and COPD navigator. Obstructive sleep apnea -Continue BiPAP nightly. Hypertension -Monitor vital signs and continue daily medication regimen with verapamil. Rheumatoid arthritis Chronic back pain -Continue daily medication regimen with Mobic and Tylenol Pulmonary nodule -Previously known, being monitored outpatient by substation operator helper. Iron deficiency anemia -Hemoglobin stable and at baseline. Patient to continue daily medication regimen with ferrous sulfate 325 mg each morning with breakfast. CODE STATUS: Full code DVT prophylaxis: Heparin Discussed with: Patient and RN Anticipated discharge date: Clinical course to determine Anticipated discharge place: Home with palliative care and COPD navigator A total of 35 minutes was spent on the care of this complex patient more than 50% of the time was spent in counseling and care coordination. Objective - Vital Signs Vital signs: Vital Signs Temp 98.4 F 10/09/22 21:07 Pulse 100 10/10/22 08:23 Resp 18 10/10/22 08:20 BP 141/111 10/10/22 08:20 Pulse Ox 97 10/10/22 08:20 FiO2 Intake & Output 10/09/22 10/10/22 10/10/22 18:59 06:59 18:59 Weight 72.575 kg - Labs CBC & Chem 7: 10/09/22 21:21 10/09/22 21:21 Labs: Abnormal Lab Results - Last 24 Hours (Table) 10/09/22 10/09/22 10/09/22 Range/Units 21:21 21:21 21:21 WBC 10.8 H (3.8-10.6) k/uL RBC 3.37 L (3.80-5.40) m/uL Hgb 10.9 L (11.4-16.0) gm/dL Hct 32.8 L (34.0-46.0) % Neutrophils # 8.3 H (1.3-7.7) k/uL VBG pCO2 84 H* (37-51) mmHg VBG HCO3 44 H (24-28) mmol/L Chloride 96 L (98-107) mmol/L Carbon Dioxide 40 H (22-30) mmol/L Glucose 110 H (74-99) mg/dL Assessment and Plan Assessment: Attending note Kapil Gonzalez NP rendered care for this patient independently, reviewed the findings and plan as documented in the note above. I did not physically speak with our examined the patient on this date.
[2022-10-10] MEDS: LORATADINE 10 MG TAB PO SCH (09:15)
[2022-10-10] MEDS: DULoxetine HCL 30 MG CAPSULE.DR PO SCH (09:15)
[2022-10-10] MEDS: predniSONE 20 MG TAB PO SCH (09:15)
[2022-10-10] MEDS: HEPARIN SODIUM,PORCINE/PF 5,000 UNIT/0.5 ML SYRINGE SQ SCH ×3 (09:15→21:37)
[2022-10-10] MEDS: VERAPAMIL SR 120 MG TABLET.ER PO SCH (10:16)
[2022-10-10] MEDS: THEOPHYLLINE 24 HOUR 400 MG CAP.ER.24H PO SCH (10:16)
--- NOTE | 2022-10-10 13:45 | P.CNPUL ---
History of Present Illness Consult date: 10/10/22 Requesting physician: Mayank Schaffer Reason for consult: dyspnea, COPD Chief complaint: Shortness of breath History of present illness: This is a very pleasant 67-year-old female patient with a history of hypertension, rheumatoid arthritis, chronic lower extremity edema, attention deficit hyperactivity disorder, chronic back pain, COVID-19 pneumonia, chronic hypoxemic and hypercapnic respiratory failure utilizing oxygen at 4 L at home. She also has a noninvasive positive pressure ventilatory machine for nighttime. She is also noted to have a left upper lobe lung lesion measuring 18 x 13 mm. Based on these findings she was deactivated from the transplant list. Follow-up CAT scan to be performed this year. She follows with Dr. Goodman in our office for the same. She was last discharged for another COPD exacerbation on 09/28/2022. She presented here to the emergency room yesterday with complaints of increasing shortness of breath, cough and congestion for the past few days. Chest x-ray reveals some right upper lobe linear scarring or atelectasis without change. She is seen today in consultation in the emergency department. Currently sitting up at the bedside. Awake and alert in no acute distress. Maintaining O2 saturation in the 90s on 3 L/m per nasal cannula. She is still short of breath with conversation. Short of breath with minimal exertion. She admits to not taking her steroids as prescribed due to feeling she might not need down. White count 10.8. Hemoglobin 10.9. Platelet count 191. Sodium 139. Potassium 4.0. Bicarb 40. BUN 12. Creatinine 0.55. Influenza screen negative. CoVID screen negative. RSV screen negative. Review of Systems CONSTITUTIONAL: Denies any recent significant weight loss or weight gain. EYES: Denies change in vision. EARS, NOSE, MOUTH, THROAT: Denies headaches, denies sore throat. CARDIOVASCULAR: Denies chest pain, palpitations or syncopal episodes. RESPIRATORY: Positive for shortness of breath, cough, congestion no hemoptysis. GASTROINTESTINAL: Denies change in appetite, denies abdominal pain GENITOURINARY: Denies hematuria, denies infections. MUSKULOSKELETAL: Denies pain, denies swelling. INTEGUMENTARY: Denies rash, denies eczema. NEUROLOGICAL: Denies recent memory loss, no recent seizure activity. PSYCHIATRIC: Denies anxiety, denies depression. HEMATOLOGIC/LYMPHATIC: Denies anemia, denies enlarged lymph nodes. 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 History of Any Multi-Drug Resistant Organisms: MRSA Date of last positivie culture/infection: february 2021 MDRO Source:: urine Past Surgical History: Appendectomy, Back Surgery, Bowel Resection, Ear Surgery, Hysterectomy, Joint Replacement Additional Past Surgical History / Comment(s): Partial vulvectomy, TAD with unilateral oophorectomy, R colectomy, EGD, colonoscopy, total R knee arthroplasty, kyphoplasty/bx, pain procedures, bilateral myringotomy/tubes. Past Anesthesia/Blood Transfusion Reactions: No Reported Reaction Additional Past Anesthesia/Blood Transfusion Reaction / Comment(s): States is not supposed to have general anesthesia. "Cannot have tube in throat." Past Psychological History: ADD/ADHD, Anxiety, Depression Smoking Status: Former smoker - Past Family History Father Family Medical History: Cancer, COPD Additional Family Medical History / Comment(s): COLON cancer. Mother Family Medical History: Cancer Additional Family Medical History / Comment(s): ESOPHAGUS cancer. Sister(s) Family Medical History: Cancer Additional Family Medical History / Comment(s): CERVICAL cancer, basal cell cancer. Medications and Allergies Home Medications Medication Instructions Recorded Confirmed Type DULoxetine HCL [Cymbalta] 30 mg PO DAILY 01/15/21 10/10/22 History Montelukast [Singulair] 10 mg PO HS 02/19/21 10/10/22 History Ferrous Sulfate [Iron (65 MG 325 mg PO DAILY 07/04/21 10/10/22 History Elemental)] Magnesium Oxide [Mag-Ox] 200 mg PO DAILY 07/14/21 10/10/22 History Meloxicam 15 mg PO DAILY 08/05/21 10/10/22 History Cetirizine HCl 10 mg PO DAILY 04/20/22 10/10/22 History Albuterol Sulfate [Ventolin HFA] 2 puff INHALATION RT-Q6H PRN 08/24/22 10/10/22 History Budesonide [Pulmicort] 0.5 mg INHALATION RT-BID 09/19/22 10/10/22 History Formoterol Fumarate [Perforomist] 20 mcg INHALATION RT-BID 09/19/22 10/10/22 History Ipratropium-Albuterol Nebulize 3 ml INHALATION RT-QID 09/19/22 10/10/22 History [Duoneb 0.5 mg-3 mg/3 ml Soln] Theophylline 24 Hour [Sekou-24] 400 mg PO DAILY 09/19/22 10/10/22 History Verapamil HCl [Verapamil ER] 120 mg PO DAILY 09/19/22 10/10/22 History rOPINIRole HCL [Requip] 4 mg PO HS 09/19/22 10/10/22 History predniSONE See Taper PO DIRECTED 16 Days 09/28/22 10/10/22 Rx #40 tab Allergies Allergy/AdvReac Type Severity Reaction Status Date / Time infliximab [From Remicade] Allergy Dyspnea/HIV Verified 10/10/22 07:48 ES propoxyphene [From Darvon] Allergy Rash/Hives Verified 10/10/22 07:48 adhesive tape AdvReac "is hard Verified 10/10/22 07:48 on skin" Physical Exam Vitals: Vital Signs Temp Pulse Resp BP Pulse Ox 10/10/22 11:54 93 10/10/22 11:45 98 10/10/22 10:19 101 H 21 135/57 94 L 10/10/22 08:23 100 10/10/22 08:20 91 18 141/111 97 10/10/22 08:15 99 10/10/22 08:07 96 10/10/22 03:17 21 10/10/22 02:01 108 H 18 132/99 95 10/09/22 22:56 92 18 128/70 91 L 10/09/22 21:52 88 10/09/22 21:32 80 12/12/22 21:07 98.4 F 75 18 137/101 94 L Intake and Output 10/09/22 10/10/22 10/10/22 22:59 06:59 14:59 Other: Weight 72.575 kg GENERAL EXAM: Alert, pleasant 67-year-old female patient, on 3 L nasal cannula, fairly comfortable in no apparent distress. 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 Normocephalic. EYES: Normal reaction of pupils, equal size. NOSE: Clear with pink turbinates. THROAT: No erythema or exudates. NECK: No masses, no JVD. CHEST: No chest wall deformity. LUNGS: Equal air entry with bilateral end expiratory wheeze, diminished. CVS: S1 and S2 normal with no audible murmur, regular rhythm. ABDOMEN: No hepatosplenomegaly, normal bowel sounds, no guarding or rigidity. SPINE: No scoliosis or deformity SKIN: No rashes CENTRAL NERVOUS SYSTEM: No focal deficits, tone is normal in all 4 extremities. EXTREMITIES: There is no peripheral edema. No clubbing, no cyanosis. Peripheral pulses are intact. Results - Laboratory Findings CBC and BMP: 10/09/22 21:21 10/09/22 21:21 PT/INR, D-dimer PT 9.6 sec (9.0-12.0) 10/09/22 21:21 INR 0.9 (<1.2) 10/09/22 21:21 Abnormal lab findings: Abnormal Labs 10/09/22 10/09/22 10/09/22 21:21 21:21 21:21 WBC 10.8 H RBC 3.37 L Hgb 10.9 L Hct 32.8 L Neutrophils # 8.3 H VBG pCO2 84 H* VBG HCO3 44 H Chloride 96 L Carbon Dioxide 40 H Glucose 110 H - Diagnostic Findings Chest x-ray: image reviewed Assessment and Plan Assessment: Acute exacerbation of chronic obstructive pulmonary disease, no evidence of pneumonia. Acute on chronic hypoxemic respiratory failure secondary to above, does have home oxygen at 4 L/m per nasal cannula Acute on chronic hypercapnic respiratory failure secondary to above, on BiPAP 10/03 in the outpatient setting History of a left upper lobe lesion measuring 18 x 13 mm in size. Being followed in the outpatient setting History of CoVID in 19 pneumonia History of chronic lower extremity edema Hypertension Attention deficit hyperactivity disorder Rheumatoid arthritis Chronic back pain Former smoker Plan: The patient was seen and evaluated Chest x-ray, labs and medications reviewed Continue DuoNeb inhalations, Pulmicort and Perforomist, Singulair, theophylline Continue prednisone taper starting at 40 mg daily Heparin for DVT prophylaxis Titrate the FiO2 as tolerated We will continue to follow and make further recommendations based on her clinical status I have personally seen and examined the patient, performed the documentation and the assessment and plan as written. Number of minutes spent on the visit: 20. Joint evaluation that was done along with the nurse practitioner. Again the above-mentioned plan. Evaluation was done in more than 30 minutes . Overall prognosis poor. The patient has advanced COPD. No evidence of any pulmonary malignancy based on the most recent CAT scan of the chest. The patient was admi tted again for another COPD exacerbation. We'll reset broke about it since steroids. At the patient to bring her BiPAP machine from home.
[2022-10-10] MEDS: rOPINIRole HCL 4 MG TABLET PO SCH (21:37)
[2022-10-10] MEDS: MONTELUKAST 10 MG TAB PO SCH (21:37)
[2022-10-10] MEDS: ACETAMINOPHEN TAB 325 MG TAB PO PRN (22:34)
[2022-10-11] MEDS: IPRATROPIUM-ALBUTEROL 3 ML NEB INHALATION PRN ×2 (00:34→02:40)
[2022-10-11 05:31] LABS: Glucose,Whole Blood 154 mg/dL (70-110)
[2022-10-11] MEDS: THEOPHYLLINE 24 HOUR 400 MG CAP.ER.24H PO SCH (08:01)
[2022-10-11] MEDS: MELOXICAM 7.5 MG TAB PO SCH (08:01)
[2022-10-11] MEDS: FERROUS SULFATE 325 MG TAB PO SCH (08:01)
[2022-10-11] MEDS: HEPARIN SODIUM,PORCINE/PF 5,000 UNIT/0.5 ML SYRINGE SQ SCH ×3 (08:01→22:26)
[2022-10-11] MEDS: VERAPAMIL SR 120 MG TABLET.ER PO SCH (08:01)
[2022-10-11] MEDS: AZITHROMYCIN 500 MG TAB PO SCH (08:01)
[2022-10-11] MEDS: LORATADINE 10 MG TAB PO SCH (08:01)
[2022-10-11] MEDS: predniSONE 20 MG TAB PO SCH (08:02)
[2022-10-11] MEDS: FORMOTEROL FUMARATE 20 MCG/2 ML NEBU INHALATION SCH ×2 (08:22→20:17)
[2022-10-11] MEDS: BUDESONIDE 0.5 MG/2 ML NEBU INHALATION SCH ×2 (08:22→20:17)
[2022-10-11] MEDS: IPRATROPIUM-ALBUTEROL 3 ML NEB INHALATION SCH ×4 (08:22→20:17)
[2022-10-11] MEDS: DULoxetine HCL 30 MG CAPSULE.DR PO SCH (11:10)
--- NOTE | 2022-10-11 16:02 | P.PN ---
Subjective Progress Note Date: 10/11/22 This is a very pleasant 67-year-old female patient with a history of hypertension, rheumatoid arthritis, chronic lower extremity edema, attention deficit hyperactivity disorder, chronic back pain, COVID-19 pneumonia, chronic hypoxemic and hypercapnic respiratory failure utilizing oxygen at 4 L at home. She also has a noninvasive positive pressure ventilatory machine for nighttime. She is also noted to have a left upper lobe lung lesion measuring 18 x 13 mm. Based on these findings she was deactivated from the transplant list. Follow-up CAT scan to be performed this year. She follows with Dr. Goodman in our office for the same. She was last discharged for another COPD exacerbation on 09/28/20. She presented here to the emergency room yesterday with complaints of increasing shortness of breath, cough and congestion for the past few days. Chest x-ray reveals some right upper lobe linear scarring or atelectasis without change. She is seen today in consultation in the emergency department. Currently sitting up at the bedside. Awake and alert in no acute distress. Maintaining O2 saturation in the 90s on 3 L/m per nasal cannula. She is still short of breath with conversation. Short of breath with minimal exertion. She admits to not taking her steroids as prescribed due to feeling she might not need down. White count 10.8. Hemoglobin 10.9. Platelet count 191. Sodium 139. Potassium 4.0. Bicarb 40. BUN 12. Creatinine 0.55. Influenza screen negative. CoVID screen negative. RSV screen negative. The patient is seen today 10/11/2022 in follow-up on the regular medical floor. She is currently sitting up in a chair at the bedside. Awake and alert in no acute distress. She had been utilizing BiPAP throughout the night and is currently maintaining good O2 saturations in the 90s on 3 L/m per nasal cannula. She's been afebrile. Blood glucose 154. She is continued on DuoNeb inhalations, Pulmicort and Perforomist inhalations, Singulair, prednisone, theophylline. Heparin for DVT prophylaxis. Completed azithromycin. Objective - Vital Signs Vital signs: Vital Signs Temp 98.0 F 10/11/22 14:00 Pulse 78 10/11/22 15:38 Resp 19 10/11/22 14:00 BP 147/74 10/11/22 14:00 Pulse Ox 93 L 10/11/22 14:00 FiO2 35 10/11/22 08:19 Intake & Output 10/10/22 10/11/22 10/11/22 18:59 06:59 18:59 Intake Total 200 Output Total 501 Balance 200 -501 Intake: Oral 200 Output: Urine 500 Stool 1 Other: Voiding Method External Catheter # Voids 1 # Bowel Movements 1 - Exam GENERAL EXAM: Alert, 67-year-old female, on 3 L nasal cannula, fairly comfortable in no apparent distress. 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 EYES: Normal reaction of pupils, equal size. NOSE: Clear with pink turbinates. THROAT: No erythema or exudates. NECK: No masses, no JVD. CHEST: No chest wall deformity. LUNGS: Equal air entry with bilateral end expiratory wheeze, diminished. CVS: S1 and S2 normal with no audible murmur, regular rhythm. ABDOMEN: No hepatosplenomegaly, normal bowel sounds, no guarding or rigidity. SPINE: No scoliosis or deformity SKIN: No rashes CENTRAL NERVOUS SYSTEM: No focal deficits, tone is normal in all 4 extremities. EXTREMITIES: There is no peripheral edema. No clubbing, no cyanosis. Peripheral pulses are intact. - Labs CBC & Chem 7: 10/09/22 21:21 10/09/22 21:21 Labs: Abnormal Lab Results - Last 24 Hours (Table) 10/11/22 Range/Units 05:30 POC Glucose (mg/dL) 154 H (70-110) mg/dL Assessment and Plan Assessment: Acute exacerbation of chronic obstructive pulmonary disease, no evidence of pneumonia. Acute on chronic hypoxemic respiratory failure secondary to above, does have home oxygen at 4 L/m per nasal cannula Acute on chronic hypercapnic respiratory failure secondary to above, on APAP 10/03 in the outpatient setting History of a left upper lobe lesion measuring 18 x 13 mm in size. Being followed in the outpatient setting History of CoVID in 19 pneumonia History of chronic lower extremity edema Hypertension Attention deficit hyperactivity disorder Rheumatoid arthritis Chronic back pain Former smoker Plan: The patient was seen and evaluated Medications reviewed Continue the current treatment plan Titrate the FiO2 as tolerated Should wear her own home APAP machine while here Settings were evaluated We will continue to follow I have personally seen and examined the patient, performed the documentation and the assessment and plan as written. Number of minutes spent on the visit: 10. This is a joint evaluation that was done along with [employer] [employer]. The patient was seen and evaluated personally. I reviewed and discussed the the above-mentioned plan with the patient and the [employer]. This evaluation was done in more than 20 minutes. I agree to the above-mentioned evaluation, information and planning.
--- NOTE | 2022-10-11 18:24 | P.PN ---
Subjective Progress Note Date: 10/11/22 Hospital course: Patient is a very pleasant 67-year-old female with a past medical history of advanced COPD home oxygen dependent on 3-4 L at all times, obstructive sleep apnea CPAP dependent nightly, hypertension, iron deficiency anemia, rheumatoid arthritis, and chronic back pain. Patient is very well-known to our services and recently admitted to the hospital for acute COPD exacerbation on 09/18/22 through 09/28/22. At time of discharge, the patient was discharged home on 16 d ay prednisone taper as recommended by barbed wire machine operator and she was instructed that she will need to follow up outpatient with PCP and barbed wire machine operator, patient did not follow up and states that she took the prednisone as prescribed for about 6- 8 days and then she decided to stop. Patient reports after stopping her steroids she noticed she started to again have worsening shortness of breath, wheezing, and cough. Patient reports despite use of her home nebulizer and breathing treatments she remains significantly short of breath with any exertion and called EMS for transfer to the hospital. She underwent full evaluation in the emergency department. CBC revealed leukocytosis with WBC count of 10.8 and normocytic anemia with hemoglobin of 10.9. Coags normal findings. BMP revealing hypercarbia with carbon dioxide of 40. Venous blood gas completed revealing compensated respiratory acidosis with pH of 7.34, pCO2 of 84, and bicarb of 44. Influenza A, influenza B, RSV, and Covid PCR were all negative. Troponin negative at less than 0.012. EKG showing sinus rhythm at 77 bpm with no noted T wave or ST abnormality showing no signs of acute ischemia. Chest x- ray negative for acute cardiopulmonary process, showing right upper lobe scarring and atelectasis unchanged. Patient admitted under our services with consultation to pulmonology Physical exam: Patient seen and fully evaluated at the bedside this morning. Patient was resting comfortably and reports that she used BiPAP throughout the night. Patient was asked if her sister was bringing in her BiPAP today and she stated that she is going to have her bring it in later today. Patient reports she is unsure if her home BiPAP works properly or not at this time. Patient's condition near baseline at this time and will likely be discharged home with COPD navigator and palliative care within the next 24-48 hours. Vital signs reviewed and stable. General: Nontoxic, no distress and appears stated age. Derm: Skin warm and dry, normal coloration for ethnicity. Head: Atraumatic, normocephalic and symmetric. Eyes: EOMs intact, no lid lag, and anicteric sclera Mouth: no lip lesions, mucus membranes moist Cardiovascular: regular rate and rhythm with normal S1S2, no murmur, positive posterior tibial pulses bilaterally, and cap refill < 2 seconds. Lungs: Respirations even, regular, and unlabored on 3 L O2 via nasal cannula. Lungs diminished with soft diffuse expiratory wheezing throughout all guzman. Patient has noted conversational dyspnea and accessory muscle usage. Abdominal: soft, nontender to palpation, no guarding, no appreciable organomegaly Ext: ROM intact. No gross muscle atrophy, no edema, no contractures Neuro: Speech clear, face symmetrical and CN II-XII grossly intact with no noted focal neuro deficits Psych: Alert and oriented to person, place, time, and situation. Appropriate and pleasant affect. Assessment and Plan of Care: Acute COPD exacerbation Acute on chronic respiratory failure with hypoxia and hypercarbia secondary to acute COPD exacerbation Medical noncompliance -Pulmonology following -Oxygenation to be administered and titrated as needed to maintain SPO2 equal to or greater than 90% -Telemetry monitoring. -Monitor Pulse-oximetry -Duonebs scheduled for times daily and as needed for SOB and/or wheezing -Incentive Spirometry -Steroids: Prednisone 40 mg daily -Antibiotics: Azithromycin -Continue Formoterol, Pulmicort, Singulair, and Theophylline. -Consult placed to palliative care and COPD navigator. Obstructive sleep apnea -Continue BiPAP nightly. Hypertension -Monitor vital signs and continue daily medication regimen with verapamil. Rheumatoid arthritis Chronic back pain -Continue daily medication regimen with Mobic and Tylenol Pulmonary nodule -Previously known, being monitored outpatient by barbed wire machine operator. Iron deficiency anemia -Hemoglobin stable and at baseline. Patient to continue daily medication regimen with ferrous sulfate 325 mg each morning with breakfast. CODE STATUS: Full code DVT prophylaxis: Heparin Discussed with: Patient and RN Anticipated discharge date: Likely within the next 24-[address]: Home with palliative care and COPD navigator A total of 35 minutes was spent on the care of this complex patient more than 50% of the time was spent in counseling and care coordination. Objective - Vital Signs Vital signs: Vital Signs Temp 98.6 F 10/11/22 07:23 Pulse 90 10/11/22 08:45 Resp 20 10/11/22 07:23 BP 163/75 10/11/22 07:23 Pulse Ox 96 10/11/22 07:23 FiO2 35 10/11/22 08:19 Intake & Output 10/10/22 10/11/22 10/11/22 18:59 06:59 18:59 Intake Total 200 Output Total 501 Balance 200 -501 Intake: Oral 200 Output: Urine 500 Stool 1 Other: Voiding Method External Catheter # Voids 1 # Bowel Movements 1 - Labs CBC & Chem 7: 10/12/22 05:09 10/12/22 05:09 Labs: Abnormal Lab Results - Last 24 Hours (Table) 10/11/22 Range/Units 05:30 POC Glucose (mg/dL) 154 H (70-110) mg/dL Assessment and Plan Assessment: Attending Note Kapil Gonzalez NP rendered care for this patient independently, reviewed the findings and plan as documented in the note above. I did not physically speak with our examined the patient on this date.
[2022-10-11] MEDS: MONTELUKAST 10 MG TAB PO SCH (19:56)
[2022-10-11] MEDS: ACETAMINOPHEN TAB 325 MG TAB PO PRN (19:58)
[2022-10-11] MEDS: rOPINIRole HCL 4 MG TABLET PO SCH (22:23)
[2022-10-12] MEDS: IPRATROPIUM-ALBUTEROL 3 ML NEB INHALATION PRN ×2 (00:19→03:53)
[2022-10-12] MEDS: BUDESONIDE 0.5 MG/2 ML NEBU INHALATION SCH ×2 (07:57→20:17)
[2022-10-12] MEDS: FORMOTEROL FUMARATE 20 MCG/2 ML NEBU INHALATION SCH ×2 (07:57→19:56)
[2022-10-12] MEDS: IPRATROPIUM-ALBUTEROL 3 ML NEB INHALATION SCH ×4 (07:57→19:55)
[2022-10-12] MEDS: ACETAMINOPHEN TAB 325 MG TAB PO PRN (08:23)
[2022-10-12] MEDS: LORATADINE 10 MG TAB PO SCH (08:23)
[2022-10-12] MEDS: THEOPHYLLINE 24 HOUR 400 MG CAP.ER.24H PO SCH (08:23)
[2022-10-12] MEDS: predniSONE 20 MG TAB PO SCH (08:24)
[2022-10-12] MEDS: VERAPAMIL SR 120 MG TABLET.ER PO SCH (08:24)
[2022-10-12] MEDS: DULoxetine HCL 30 MG CAPSULE.DR PO SCH (08:24)
[2022-10-12] MEDS: MELOXICAM 7.5 MG TAB PO SCH (08:24)
[2022-10-12] MEDS: FERROUS SULFATE 325 MG TAB PO SCH (08:24)
[2022-10-12] MEDS: HEPARIN SODIUM,PORCINE/PF 5,000 UNIT/0.5 ML SYRINGE SQ SCH ×3 (08:27→23:36)
[2022-10-12 08:52] LABS: HCT 29.3 % (37.2-46.3); HGB 9.1 g/dL (12.0-15.0); MCH 31.5 pg (27.0-32.0); MCHC 31.1 g/dL (32.0-37.0); MCV 101.4 fL (80.0-97.0); Mean Platelet Volume 10.9 fL (9.5-12.2); NRBC Per 100 WBC 0 /100 WBCS (0.0-0.0); Platelet Count 250 X 10*3/uL (140-440); RBC 2.89 X 10*6/uL (4.10-5.20); RDW 16.2 % (11.5-14.5); WBC 10.32 X 10*3/uL (4.50-10.00)
[2022-10-12 09:14] LABS: African American GFR (CKD) 102.5 (60.0-200.0); Anion Gap 5.9 mmol/L (10.00-18.00); BUN/Creat Ratio 32.29 Ratio (12.00-20.00); Blood Urea Nitrogen 22.6 mg/dL (9.0-27.0); Calcium 9.2 mg/dL (8.7-10.3); Carbon Dioxide 38.1 mmol/L (20.0-27.5); Non-African American GFR(CKD) 88.4 (60.0-200.0); Potassium 4.5 mmol/L (3.5-5.5)
--- NOTE | 2022-10-12 12:08 | P.PN ---
Subjective Progress Note Date: 10/12/22 This is a very pleasant 67-year-old female patient with a history of hypertension, rheumatoid arthritis, chronic lower extremity edema, attention deficit hyperactivity disorder, chronic back pain, COVID-19 pneumonia, chronic hypoxemic and hypercapnic respiratory failure utilizing oxygen at 4 L at home. She also has a noninvasive positive pressure ventilatory machine for nighttime. She is also noted to have a left upper lobe lung lesion measuring 18 x 13 mm. Based on these findings she was deactivated from the transplant list. Follow-up CAT scan to be performed this year. She follows with Dr. Goodman in our office for the same. She was last discharged for another COPD exacerbation on 09/28/20. She presented here to the emergency room yesterday with complaints of increasing shortness of breath, cough and congestion for the past few days. Chest x-ray reveals some right upper lobe linear scarring or atelectasis without change. She is seen today in consultation in the emergency department. Currently sitting up at the bedside. Awake and alert in no acute distress. Maintaining O2 saturation in the 90s on 3 L/m per nasal cannula. She is still short of breath with conversation. Short of breath with minimal exertion. She admits to not taking her steroids as prescribed due to feeling she might not need down. White count 10.8. Hemoglobin 10.9. Platelet count 191. Sodium 139. Potassium 4.0. Bicarb 40. BUN 12. Creatinine 0.55. Influenza screen negative. CoVID screen negative. RSV screen negative. The patient is seen today 10/11/2022 in follow-up on the regular medical floor. She is currently sitting up in a chair at the bedside. Awake and alert in no acute distress. She had been utilizing BiPAP throughout the night and is currently maintaining good O2 saturations in the 90s on 3 L/m per nasal cannula. She's been afebrile. Blood glucose 154. She is continued on DuoNeb inhalations, Pulmicort and Perforomist inhalations, Singulair, prednisone, theophylline. Heparin for DVT prophylaxis. Completed azithromycin. On 10/12/2022, the patient the patient is still struggling with her breathing. She has advanced and end-stage COPD and she continues to anticipated that she is going to get better and ultimately go back to the transplant list and undergo a lung transportation. I think, overall functionality has been in. As the patient is having recurrent exacerbation recurrent hospitalization for COPD exacerbation. Currently, she is stable on 3 L. She is on a prednisone burst taper that was started today. She remains on DuoNeb about treatments [id number]. She is also on accommodation Perforomist and Pulmicort neb treatments twice a day and theophylline. No agitation. No chest pain. No signs of any CO2 narcosis. White cell count is at 10 with a hemoglobin of 9.1 and a platelet count of 250. Sodium is at 140 with a potassium level of 4.5 and a BUN is 22 with a creatinine of 0.7. No new complaints otherwise for now. No chest pain. Limited congestive cough. No significant sputum production. The patient was utilizing hour hospital BiPAP machine and she has also had a VPAP auto machine at the bedside. Her hospital BiPAP machine is set at a pressure of 12/6 cm of water. As for the VPAP, it is at a Minimum pressure for a maximum pressure of 15 and a pressure support of 4. Objective - Vital Signs Vital signs: Vital Signs Temp 96.0 F L 10/12/22 07:38 Pulse 104 H 10/12/22 11:43 Resp 20 10/12/22 08:45 BP 158/70 10/12/22 07:38 Pulse Ox 97 10/12/22 07:57 FiO2 35 10/12/22 03:54 Intake & Output 10/11/22 10/12/22 10/12/22 18:59 06:59 18:59 Intake Total 250 Output Total 400 1 Balance -400 250 -1 Intake: Oral 250 Output: Urine 400 Stool 1 Other: Voiding Method External Catheter External Catheter # Voids 4 - Exam GENERAL EXAM: Alert, 67-year-old female, on 3 L nasal cannula, fairly comfortable in no apparent distress. 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 EYES: Normal reaction of pupils, equal size. NOSE: Clear with pink turbinates. THROAT: No erythema or exudates. NECK: No masses, no JVD. CHEST: No chest wall deformity. LUNGS: Equal air entry with bilateral end expiratory wheeze, diminished. CVS: S1 and S2 normal with no audible murmur, regular rhythm. ABDOMEN: No hepatosplenomegaly, normal bowel sounds, no guarding or rigidity. SPINE: No scoliosis or deformity SKIN: No rashes CENTRAL NERVOUS SYSTEM: No focal deficits, tone is normal in all 4 extremities. EXTREMITIES: There is no peripheral edema. No clubbing, no cyanosis. Peripheral pulses are intact. - Labs CBC & Chem 7: 10/12/22 05:09 10/12/22 05:09 Labs: Abnormal Lab Results - Last 24 Hours (Table) 10/12/22 10/12/22 Range/Units 05:09 05:09 WBC 10.32 H (4.50-10.00) X 10*3/uL RBC 2.89 L (4.10-5.20) X 10*6/uL Hgb 9.1 L (12.0-15.0) g/dL Hct 29.3 L (37.2-46.3) % MCV 101.4 H (80.0-97.0) fL MCHC 31.1 L (32.0-37.0) g/dL RDW 16.2 H (11.5-14.5) % Carbon Dioxide 38.1 H (20.0-27.5) mmol/L Anion Gap 5.90 L (10.00-18.00) mmol/L BUN/Creatinine Ratio 32.29 H (12.00-20.00) Ratio Assessment and Plan Assessment: Acute exacerbation of chronic obstructive pulmonary disease, no evidence of pneumonia. The patient has advanced and end-stage COPD and she is currently oxy gen dependent. She has had multiple hospitals issue for COPD exacerbation and she has significant limitation performance and functional status due to advanced COPD. She is currently on oxygen at 3 L Acute on chronic hypoxemic respiratory failure secondary to above, does have home oxygen at 3 L/m per nasal cannula Acute on chronic hypercapnic respiratory failure secondary to above, on APAP 10/03 in the outpatient setting History of a left upper lobe lesion measuring 18 x 13 mm in size. Being followed in the outpatient setting History of CoVID in 19 pneumonia History of chronic lower extremity edema Hypertension Attention deficit hyperactivity disorder Rheumatoid arthritis Chronic back pain Former smoker Plan: Prednisone at 40 mg and IV Solu-Medrol be discontinued Continue rest of the respiratory medications Use either the VPAP auto or the BiPAP machine at which is currently at the bedside and this can be used intermittently during the day continuously at nighttime Possible discharge in a.m. if condition remains stable on oral prednisone In my opinion, she may not be a good candidate for transplantation. Ultimately this will be left up to the team at [facility] where she was listed originally.
--- NOTE | 2022-10-12 14:14 | P.PN ---
Subjective Progress Note Date: 10/12/22 Hospital course: Patient is a very pleasant 67-year-old female with a past medical history of advanced COPD home oxygen dependent on 3-4 L at all times, obstructive sleep apnea CPAP dependent nightly, hypertension, iron deficiency anemia, rheumatoid arthritis, and chronic back pain. Patient is very well-known to our services and recently admitted to the hospital for acute COPD exacerbation on 09/18/22 through 09/28/22. At time of discharge, the patient was discharged home on 16 d ay prednisone taper as recommended by supervisor publications production and she was instructed that she will need to follow up outpatient with PCP and supervisor publications production, patient did not follow up and states that she took the prednisone as prescribed for about 6- 8 days and then she decided to stop. Patient reports after stopping her steroids she noticed she started to again have worsening shortness of breath, wheezing, and cough. Patient reports despite use of her home nebulizer and breathing treatments she remains significantly short of breath with any exertion and called EMS for transfer to the hospital. She underwent full evaluation in the emergency department. CBC revealed leukocytosis with WBC count of 10.8 and normocytic anemia with hemoglobin of 10.9. Coags normal findings. BMP revealing hypercarbia with carbon dioxide of 40. Venous blood gas completed revealing compensated respiratory acidosis with pH of 7.34, pCO2 of 84, and bicarb of 44. Influenza A, influenza B, RSV, and Covid PCR were all negative. Troponin negative at less than 0.012. EKG showing sinus rhythm at 77 bpm with no noted T wave or ST abnormality showing no signs of acute ischemia. Chest x- ray negative for acute cardiopulmonary process, showing right upper lobe scarring and atelectasis unchanged. Patient admitted under our services with consultation to pulmonology. Physical exam: Patient seen and fully evaluated at the bedside this morning. Patient was resting comfortably this morning and is at her baseline respiratory function. Initial plan was for discharge, however pulmonology would like to monitor patien t for an additional 24 hours with plans to discharge tomorrow morning. Had long discussion with patient regarding importance of compliance upon discharge. Patient educated on the importance of taking steroids as directed and use of her home VPAP. Morning labs reviewed and carbon dioxide down to 38.1. Hgb stable at 9.1 and WBC count remains slightly elevated at 10.32. Vital signs reviewed and stable. General: Nontoxic, no distress and appears stated age. Derm: Skin warm and dry, normal coloration for ethnicity. Head: Atraumatic, normocephalic and symmetric. Eyes: EOMs intact, no lid lag, and anicteric sclera Mouth: no lip lesions, mucus membranes moist Cardiovascular: regular rate and rhythm with normal S1S2, no murmur, positive posterior tibial pulses bilaterally, and cap refill < 2 seconds. Lungs: Respirations even, regular, and unlabored on 3 L O2 via nasal cannula. Lungs diminished with soft diffuse expiratory wheezing throughout all guzman. Patient has noted mild conversational dyspnea and accessory muscle usage (abdominal breathing). Abdominal: soft, nontender to palpation, no guarding, no appreciable organomegaly Ext: ROM intact. No gross muscle atrophy, no edema, no contractures Neuro: Speech clear, face symmetrical and CN II-XII grossly intact with no noted focal neuro deficits Psych: Alert and oriented to person, place, time, and situation. Appropriate and pleasant affect. Assessment and Plan of Care: Acute COPD exacerbation Acute on chronic respiratory failure with hypoxia and hypercarbia secondary to acute COPD exacerbation Medical noncompliance -Pulmonology following -Oxygenation to be administered and titrated as needed to maintain SPO2 equal to or greater than 90% -Telemetry monitoring. -Monitor Pulse-oximetry -Duonebs scheduled for times daily and as needed for SOB and/or wheezing -Incentive Spirometry -Steroids: Prednisone 40 mg daily -Antibiotics: Azithromycin -Continue Formoterol, Pulmicort, Singulair, and Theophylline. -Consult placed to palliative care and COPD navigator. Obstructive sleep apnea -Continue BiPAP or VPAP nightly. Hypertension -Monitor vital signs and continue daily medication regimen with verapamil. Rheumatoid arthritis Chronic back pain -Continue daily medication regimen with Mobic and Tylenol Pulmonary nodule -Previously known, being monitored outpatient by supervisor publications production. Iron deficiency anemia -Hemoglobin stable and at baseline. Patient to continue daily medication regimen with ferrous sulfate 325 mg each morning with breakfast. CODE STATUS: Full code DVT prophylaxis: Heparin Discussed with: Patient and RN Anticipated discharge date: Tomorrow morning. Anticipated discharge place: Home with palliative care and COPD navigator A total of 35 minutes was spent on the care of this complex patient more than 50% of the time was spent in counseling and care coordination. Attending Note Kapil Gonzalez NP rendered care for this patient independently, reviewed the findings and plan as documented in the note above. I did not physically speak with our examined the patient on this date. Objective - Vital Signs Vital signs: Vital Signs Temp 96.0 F L 10/12/22 07:38 Pulse 104 H 10/12/22 08:21 Resp 20 10/12/22 07:38 BP 158/70 10/12/22 07:38 Pulse Ox 97 10/12/22 07:57 FiO2 35 10/12/22 03:54 Intake & Output 10/11/22 10/12/22 10/12/22 18:59 06:59 18:59 Intake Total 250 Output Total 400 Balance -400 250 Intake: Oral 250 Output: Urine 400 Other: Voiding Method External Catheter # Voids 4 - Labs CBC & Chem 7: 10/12/22 05:09 10/12/22 05:09
[2022-10-12] MEDS: MONTELUKAST 10 MG TAB PO SCH (23:36)
[2022-10-12] MEDS: rOPINIRole HCL 4 MG TABLET PO SCH (23:44)
[2022-10-13] MEDS: IPRATROPIUM-ALBUTEROL 3 ML NEB INHALATION PRN ×2 (00:20→02:49)
[2022-10-13 07:29] VITALS: BP 150/71; RESP 18; TEMP 96.1
[2022-10-13] MEDS: BUDESONIDE 0.5 MG/2 ML NEBU INHALATION SCH (08:39)
[2022-10-13] MEDS: IPRATROPIUM-ALBUTEROL 3 ML NEB INHALATION SCH ×2 (08:39→11:48)
[2022-10-13] MEDS: FORMOTEROL FUMARATE 20 MCG/2 ML NEBU INHALATION SCH (08:39)
[2022-10-13] MEDS: predniSONE 20 MG TAB PO SCH (09:38)
[2022-10-13] MEDS: LORATADINE 10 MG TAB PO SCH (09:38)
[2022-10-13] MEDS: MELOXICAM 7.5 MG TAB PO SCH (09:38)
[2022-10-13] MEDS: HEPARIN SODIUM,PORCINE/PF 5,000 UNIT/0.5 ML SYRINGE SQ SCH (09:38)
[2022-10-13] MEDS: THEOPHYLLINE 24 HOUR 400 MG CAP.ER.24H PO SCH (09:38)
[2022-10-13] MEDS: VERAPAMIL SR 120 MG TABLET.ER PO SCH (09:38)
[2022-10-13] MEDS: DULoxetine HCL 30 MG CAPSULE.DR PO SCH (09:39)
[2022-10-13] MEDS: FERROUS SULFATE 325 MG TAB PO SCH (09:39)
[2022-10-13 11:51] VITALS: PULSE 100
--- NOTE | 2022-10-13 13:14 | P.DS ---
Providers Date of admission: 10/09/22 23:21 Expected date of discharge: 10/13/22 Attending physician: Mayank Schaffer MD Consults: 10/09/22 23:21 Consult Physician Routine Consulting Provider: Jose Elias Goodman Consult Reason/Comments: copd Do you want consulting provider notified?: Yes 10/10/22 18:48 Consult to Palliative Care Routine Consulting Provider: Cristina Pollard Consult Reason/Comments: Advanced COPD, frequent hospitalizations, medical noncompliance Do you want consulting provider notified?: Yes Primary care physician: Nathanael Mckeon MD Hospital Course: Discharge Diagnosis: Acute COPD exacerbation, patient discharged home on 16 day prednisone taper as recommended by welding pantograph machine operator and to continue use of scheduled and as needed home nebulizer treatments as well as Formoterol, Pulmicort, Singulair, and Theophylline. Patient educated on importance of following prednisone taper and taking until complete. Patient to follow-up outpatient with her PCP in 1-2 days and with welding pantograph machine operator in 1 week. Patient discharged home with [facility], [facility], and COPD navigator. Acute on chronic respiratory failure with hypoxia and hypercarbia secondary to acute COPD exacerbation. Medical noncompliance, patient was educated on the importance of taking steroids as prescribed and continued nightly use of her VPAP machine. Patient verbalized understanding and states going forward she will follow instructions closely as she is hoping to get back onto the transplant list. Patient discharged home with home palliative care and COPD navigator. Obstructive sleep apnea Continue BiPAP nightly. Hypertension. Monitor vital signs and continue daily medication regimen with verapamil. Rheumatoid arthritis Chronic back pain. Continue daily medication regimen with Mobic and Tylenol Pulmonary nodule, Previously known, continued to follow outpatient by welding pantograph machine operator. Iron deficiency anemia. Hemoglobin stable and at baseline. Patient to continue daily medication regimen with ferrous sulfate 325 mg each morning with breakfast. Hospital Course: Patient is a very pleasant 67-year-old female with a past medical history of advanced COPD home oxygen dependent on 3-4 L at all times, obstructive sleep apnea CPAP dependent nightly, hypertension, iron deficiency anemia, rheumatoid arthritis, and chronic back pain. Patient is very well-known to our services and recently admitted to the hospital for acute COPD exacerbation on 09/18/22 through 09/28/22. At time of discharge, the patient was discharged home on 16 day prednisone taper as recommended by welding pantograph machine operator and she was instructed that she will need to follow up outpatient with PCP and welding pantograph machine operator, patient did not follow up and states that she took the prednisone as prescribed for about 6- 8 days and then she decided to stop. Patient reports after stopping her steroids she noticed she started to again have worsening shortness of breath, wheezing, and cough. Patient reports despite use of her home nebulizer and breathing treatments she remains significantly short of breath with any exertion and called EMS for transfer to the hospital. She underwent full evaluation in the emergency department. CBC revealed leukocytosis with WBC count of 10.8 and normocytic anemia with hemoglobin of 10.9. Coags normal findings. BMP revealing hypercarbia with carbon dioxide of 40. Venous blood gas completed revealing compensated respiratory acidosis with pH of 7.34, pCO2 of 84, and bicarb of 44. Influenza A, influenza B, RSV, and Covid PCR were all negative. Troponin negative at less than 0.012. EKG showing sinus rhythm at 77 bpm with no noted T wave or ST abnormality showing no signs of acute ischemia. Chest x- ray negative for acute cardiopulmonary process, showing right upper lobe scarring and atelectasis unchanged. Patient admitted under our services with consultation to pulmonology. Pt is back at her baseline respiratory function and is medically stable for discharge at this time. Had long discussion with patient regarding importance of compliance upon discharge and patient verbalized understanding on the importance of taking steroids as directed and use of her home VPAP. Patient discharged home on 16 day prednisone taper as recommended by welding pantograph machine operator and to continue use of scheduled and as needed home nebulizer treatments as well as Formoterol, Pulmicort, Singulair, and Theophylline. Physical exam: Vital signs reviewed and stable. General: Nontoxic, no distress and appears stated age. Derm: Skin warm and dry, normal coloration for ethnicity. Head: Atraumatic, normocephalic and symmetric. Eyes: EOMs intact, no lid lag, and anicteric sclera Mouth: no lip lesions, mucus membranes moist Cardiovascular: regular rate and rhythm with normal S1S2, no murmur, positive posterior tibial pulses bilaterally, and cap refill < 2 seconds. Lungs: Respirations even, regular, and unlabored on 3 L O2 via nasal cannula. Lungs diminished with soft diffuse expiratory wheezing throughout all guzman. Abdominal: soft, nontender to palpation, no guarding, no appreciable organomegaly Ext: ROM intact. No gross muscle atrophy, no edema, no contractures Neuro: Speech clear, face symmetrical and CN II-XII grossly intact with no noted focal neuro deficits Psych: Alert and oriented to person, place, time, and situation. Appropriate and pleasant affect. A total of 37 minutes of time were spent preparing this complex discharge summary. Pt was discharged on 10/13/22 at 10:10 AM. Assessment: Kapil Gonzalez NP rendered care for this patient independently, reviewed the findings and plan as documented in the note above. I did not physically speak with our examined the patient on this date. Patient Condition at Discharge: Stable Plan - Discharge Summary Discharge Rx Participant: Yes New Discharge Prescriptions: Continue DULoxetine HCL [Cymbalta] 30 mg PO DAILY Montelukast [Singulair] 10 mg PO HS Meloxicam 15 mg PO DAILY Budesonide [Pulmicort] 0.5 mg INHALATION RT-BID rOPINIRole HCL [Requip] 4 mg PO HS Verapamil HCl [Verapamil ER] 120 mg PO DAILY Ferrous Sulfate [Iron (65 MG Elemental)] 325 mg PO DAILY Magnesium Oxide [Mag-Ox] 200 mg PO DAILY Cetirizine HCl 10 mg PO DAILY Albuterol Sulfate [Ventolin HFA] 2 puff INHALATION RT-Q6H PRN PRN Reason: Shortness Of Breath Theophylline 24 Hour [Sekou-24] 400 mg PO DAILY Ipratropium-Albuterol Nebulize [Duoneb 0.5 mg-3 mg/3 ml Soln] 3 ml INHALATION RT-QID Formoterol Fumarate [Perforomist] 20 mcg INHALATION RT-BID predniSONE See Taper PO DIRECTED 16 Days #40 tab Discharge Medication List DULoxetine HCL [Cymbalta] 30 mg PO DAILY 01/15/21 [History] Montelukast [Singulair] 10 mg PO HS 02/19/21 [History] Ferrous Sulfate [Iron (65 MG Elemental)] 325 mg PO DAILY 07/04/21 [History] Magnesium Oxide [Mag-Ox] 200 mg PO DAILY 07/14/21 [History] Meloxicam 15 mg PO DAILY 08/05/21 [History] Cetirizine HCl 10 mg PO DAILY 04/20/22 [History] Albuterol Sulfate [Ventolin HFA] 2 puff INHALATION RT-Q6H PRN 08/24/22 [History] Budesonide [Pulmicort] 0.5 mg INHALATION RT-BID 09/19/22 [History] Formoterol Fumarate [Perforomist] 20 mcg INHALATION RT-BID 09/19/22 [History] Ipratropium-Albuterol Nebulize [Duoneb 0.5 mg-3 mg/3 ml Soln] 3 ml INHALATION RT-QID 09/19/22 [History] Theophylline 24 Hour [Sekou-24] 400 mg PO DAILY 09/19/22 [History] Verapamil HCl [Verapamil ER] 120 mg PO DAILY 09/19/22 [History] rOPINIRole HCL [Requip] 4 mg PO HS 09/19/22 [History] predniSONE See Taper PO DIRECTED 16 Days #40 tab 10/12/22 [Rx] Follow up Appointment(s)/Referral(s): [facility], [NON-STAFF] - 1-2 Days ([facility] will call you to schedule your in home nursing and social work visits. ) [facility] [NON-STAFF] - As Needed (Call [facility] to set up housekeeping services. ) [facility] [NON-STAFF] - As Needed (Call [facility] once home to come check your CPAP machine.) Nathanael Mckeon MD [Primary Care Provider] - 11/01/22 2:00 pm [facility] [NON-STAFF] - As Needed ([facility] will call you to schedule your in home Palliative Care visits. ) Jose Elias Goodman MD [STAFF PHYSICIAN] - 1 Week Patient Instructions/Handouts: COPD (Chronic Obstructive Pulmonary Disease) (DC) Activity/Diet/Wound Care/Special Instructions: Activity: As tolerated. Take breaks as needed. Diet: Heart healthy and carb consistent diet. Avoid salts, or foods with hidden salts such as canned or boxed foods and frozen dinners. Extra salt makes your heart work harder and traps the fluid in your body for longer. Special Instructions: As we discussed, please take all of your medications as directed and remember to keep all of your doctor's appointments and follow-up as needed. Remember it is of utmost importance to sleep with your VPAP nightly. Thank you for allowing us to participate in your care, it was truly a pleasure having you for our patient!!! Discharge Disposition: HOME WITH HOME HEALTH SERVICES
--- NOTE | 2022-10-13 13:51 | P.PN ---
Subjective Progress Note Date: 10/13/22 This is a very pleasant 67-year-old female patient with a history of hypertension, rheumatoid arthritis, chronic lower extremity edema, attention deficit hyperactivity disorder, chronic back pain, COVID-19 pneumonia, chronic hypoxemic and hypercapnic respiratory failure utilizing oxygen at 4 L at home. She also has a noninvasive positive pressure ventilatory machine for nighttime. She is also noted to have a left upper lobe lung lesion measuring 18 x 13 mm. Based on these findings she was deactivated from the transplant list. Follow-up CAT scan to be performed this year. She follows with Dr. Goodman in our office for the same. She was last discharged for another COPD exacerbation on 09/28/20. She presented here to the emergency room yesterday with complaints of increasing shortness of breath, cough and congestion for the past few days. Chest x-ray reveals some right upper lobe linear scarring or atelectasis without change. She is seen today in consultation in the emergency department. Currently sitting up at the bedside. Awake and alert in no acute distress. Maintaining O2 saturation in the 90s on 3 L/m per nasal cannula. She is still short of breath with conversation. Short of breath with minimal exertion. She admits to not taking her steroids as prescribed due to feeling she might not need down. White count 10.8. Hemoglobin 10.9. Platelet count 191. Sodium 139. Potassium 4.0. Bicarb 40. BUN 12. Creatinine 0.55. Influenza screen negative. CoVID screen negative. RSV screen negative. The patient is seen today 10/11/2022 in follow-up on the regular medical floor. She is currently sitting up in a chair at the bedside. Awake and alert in no acute distress. She had been utilizing BiPAP throughout the night and is currently maintaining good O2 saturations in the 90s on 3 L/m per nasal cannula. She's been afebrile. Blood glucose 154. She is continued on DuoNeb inhalations, Pulmicort and Perforomist inhalations, Singulair, prednisone, theophylline. Heparin for DVT prophylaxis. Completed azithromycin. On 10/12/2022, the patient the patient is still struggling with her breathing. She has advanced and end-stage COPD and she continues to anticipated that she is going to get better and ultimately go back to the transplant list and undergo a lung transportation. I think, overall functionality has been in. As the patient is having recurrent exacerbation recurrent hospitalization for COPD exacerbation. Currently, she is stable on 3 L. She is on a prednisone burst taper that was started today. She remains on DuoNeb about treatments [id number]. She is also on accommodation Perforomist and Pulmicort neb treatments twice a day and theophylline. No agitation. No chest pain. No signs of any CO2 narcosis. White cell count is at 10 with a hemoglobin of 9.1 and a platelet count of 250. Sodium is at 140 with a potassium level of 4.5 and a BUN is 22 with a creatinine of 0.7. No new complaints otherwise for now. No chest pain. Limited congestive cough. No significant sputum production. The patient was utilizing hour hospital BiPAP machine and she has also had a VPAP auto machine at the bedside. Her hospital BiPAP machine is set at a pressure of 12/6 cm of water. As for the VPAP, it is at a Minimum pressure for a maximum pressure of 15 and a pressure support of 4. 10/13/2022, the patient is feeling better. The patient is currently on prednisone burst taper. No new complaints. She is to lesser VPAP auto o vernight and the treatment was extremely successful. No new complaints otherwise for now and she is open to the idea of going home. No new labs are available from today. Objective - Vital Signs Vital signs: Vital Signs Temp 96.1 F L 10/13/22 07:28 Pulse 100 10/13/22 12:00 Resp 18 10/13/22 07:28 BP 150/71 10/13/22 07:28 Pulse Ox 94 L 10/13/22 07:28 FiO2 35 10/12/22 03:54 Intake & Output 10/12/22 10/13/22 10/13/22 18:59 06:59 18:59 Intake Total 300 250 Output Total 651 Balance -351 250 Intake: Oral 300 250 Output: Urine 650 Stool 1 Other: Voiding Method External Catheter # Voids 5 - Exam GENERAL EXAM: Alert, 67-year-old female, on 3 L nasal cannula, fairly comfortable in no apparent distress. 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 EYES: Normal reaction of pupils, equal size. NOSE: Clear with pink turbinates. THROAT: No erythema or exudates. NECK: No masses, no JVD. CHEST: No chest wall deformity. LUNGS: Equal air entry with bilateral end expiratory wheeze, diminished. CVS: S1 and S2 normal with no audible murmur, regular rhythm. ABDOMEN: No hepatosplenomegaly, normal bowel sounds, no guarding or rigidity. SPINE: No scoliosis or deformity SKIN: No rashes CENTRAL NERVOUS SYSTEM: No focal deficits, tone is normal in all 4 extremities. EXTREMITIES: There is no peripheral edema. No clubbing, no cyanosis. Peripheral pulses are intact. - Labs CBC & Chem 7: 10/12/22 05:09 10/12/22 05:09 Assessment and Plan Assessment: Acute exacerbation of chronic obstructive pulmonary disease, no evidence of pneumonia. The patient has advanced and end-stage COPD and she is currently oxygen dependent. She has had multiple hospitals issue for COPD exacerbation and she has significant limitation performance and functional status due to advanced COPD. She is currently on oxygen at 3 L. The patient is clinically improving Acute on chronic hypoxemic respiratory failure secondary to above, does have home oxygen at 3 L/m per nasal cannula Acute on chronic hypercapnic respiratory failure secondary to above, on APAP 10/03 in the outpatient setting History of a left upper lobe lesion measuring 18 x 13 mm in size. Being followed in the outpatient setting History of CoVID in 19 pneumonia History of chronic lower extremity edema Hypertension Attention deficit hyperactivity disorder Rheumatoid arthritis Chronic back pain Former smoker Plan: Clinically improving Prednisone at 40 mg and this is part of a prednisone burst taper that needs to be completed on outpatient basis Continue rest of the respiratory medications VPAP auto EPAP minimum of 5 and a maximum of 15 with a pressure support of 4 Discharge home today to be followed up on outpatient basis In my opinion, she may not be a good candidate for transplantation. Ultimately this will be left up to the team at [facility] where she was listed originally. Prognosis poor
== END 2022-10-13 13:11 | disposition home health service (06) | DRG 190 ==
LOC: EC 21:06 → 4SSUR 23:21
PROVIDERS: ADMIT Internal Medicine; ATTEND Internal Medicine
PROC: 5A09357 Assistance with Respiratory Ventilation, Less than 24 Consecutive Hours, Continuous Positive Airway Pressure (ICD-10-PCS; principal; 2022-10-11)
DX: J44.1 Chronic obstructive pulmonary disease with (acute) exacerbation (principal); J96.21 Acute and chronic respiratory failure with hypoxia; J96.22 Acute and chronic respiratory failure with hypercapnia; E87.29 Other acidosis; M06.9 Rheumatoid arthritis, unspecified; Z20.822 Contact with and (suspected) exposure to COVID-19; Z28.311 Partially vaccinated for COVID-19; Z28.21 Immunization not carried out because of patient refusal; Z51.5 Encounter for palliative care; D50.9 Iron deficiency anemia, unspecified; D72.829 Elevated white blood cell count, unspecified; F32.A Depression, unspecified; F41.9 Anxiety disorder, unspecified; F90.9 Attention-deficit hyperactivity disorder, unspecified type; G47.33 Obstructive sleep apnea (adult) (pediatric); G89.29 Other chronic pain; H91.90 Unspecified hearing loss, unspecified ear; I10 Essential (primary) hypertension; M19.90 Unspecified osteoarthritis, unspecified site; Z99.81 Dependence on supplemental oxygen; Z79.1 Long term (current) use of non-steroidal anti-inflammatories (NSAID); Z79.899 Other long term (current) drug therapy; Z80.49 Family history of malignant neoplasm of other genital organs; Z80.0 Family history of malignant neoplasm of digestive organs; Z80.8 Family history of malignant neoplasm of other organs or systems; Z86.16 Personal history of COVID-19; Z87.01 Personal history of pneumonia (recurrent); Z82.5 Family history of asthma and other chronic lower respiratory diseases; Z87.891 Personal history of nicotine dependence; Z90.710 Acquired absence of both cervix and uterus; Z90.721 Acquired absence of ovaries, unilateral; Z91.199 Patient's noncompliance with other medical treatment and regimen due to unspecified reason; Z96.651 Presence of right artificial knee joint; M54.9 Dorsalgia, unspecified; Z85.89 Personal history of malignant neoplasm of other organs and systems; Z88.5 Allergy status to narcotic agent; Z88.8 Allergy status to other drugs, medicaments and biological substances; Z86.14 Personal history of Methicillin resistant Staphylococcus aureus infection; H93.13 Tinnitus, bilateral; Z97.4 Presence of external hearing-aid; G25.81 Restless legs syndrome
CPT/HCPCS: 36415; 71046; 80048; 82803; 83605; 83735; 83880; 84484; 85025; 85027; 85610; 85730; 87636; 93005; 94640; 94660; 94760; 96372; 96374; 96375; 99285

== ENCOUNTER 2022-11-01 14:34 | Inpatient (IN) | payer MEDICARE, OTHER ==
--- NOTE | 2022-11-01 15:13 | XR ---
EXAMINATION TYPE: XR chest 2V DATE OF EXAM: 11/01/2022 COMPARISON: 10/09/2022 HISTORY: 67 year-old female shortness of breath, difficulty breathing TECHNIQUE: PA and lateral views FINDINGS: Heart borderline enlarged. Mild hyperinflation. Interstitial change mid and lower lungs. Multiple mil d vertebral compression deformities appear to have been present previously. Previous vertebral plasty change near the thoracoabdominal junction. No pleural effusion. IMPRESSION: Borderline heart size. Underlying COPD. Interstitial density mid and lower lungs. Consider bronchitis , asthma, or atypical pneumonias.
[2022-11-01 16:46] LABS: Basophils # (A) 0.1 k/uL (0-0.2); Basophils % (A) 0 %; Eosinophils # (A) 0.1 k/uL (0-0.7); Eosinophils % (A) 1 %; HCT 37.2 % (34.0-46.0); HGB 11.8 gm/dL (11.4-16.0); Hypochromasia Moderate; Lymphocytes # (A) 1.6 k/uL (1.0-4.8); Lymphocytes % (A) 11 %; MCH 31.2 pg (25.0-35.0); MCHC 31.7 g/dL (31.0-37.0); MCV 98.4 fL (80.0-100.0); Macrocytosis Slight; Mean Platelet Volume 9.1; Monocytes # (A) 0.6 k/uL (0-1.0); Monocytes % (A) 4 %; Neutrophils # (A) 12.9 k/uL (1.3-7.7); Neutrophils % (A) 83 %; Platelet Count 167 k/uL (150-450); RBC 3.78 m/uL (3.80-5.40); RDW 15.2 % (11.5-15.5); WBC 15.5 k/uL (3.8-10.6)
[2022-11-01 16:57] LABS: African American GFR (CKD) >90 (>60 ml/min/1.73 sqM); Blood Urea Nitrogen 21 mg/dL (7-17); Chloride 98 mmol/L (98-107); Glucose 86 mg/dL (74-99); Sodium 138 mmol/L (137-145)
[2022-11-01 16:58] LABS: ALT 19 U/L (4-34); AST 36 U/L (14-36); Albumin 3.4 g/dL (3.5-5.0); Alkaline Phosphatase 50 U/L (38-126); Non-African American GFR(CKD) >90 (>60 ml/min/1.73 sqM); Total Bilirubin 0.6 mg/dL (0.2-1.3); Total Protein 5.9 g/dL (6.3-8.2)
[2022-11-01 17:03] LABS: Anion Gap 1 mmol/L; Carbon Dioxide 39 mmol/L (22-30)
[2022-11-01 17:05] LABS: Potassium 5.6 mmol/L (3.5-5.1)
[2022-11-01 17:08] LABS: INR 0.9 (<1.2); Prothrombin Time 9.3 sec (9.0-12.0)
[2022-11-01 17:17] LABS: Partial Thromboplastin Time 21.4 sec (22.0-30.0)
[2022-11-01] MEDS ORDERED: NALOXONE 0.4 MG/ML 1 ML VIAL IV PRN (19:18)
[2022-11-01] MEDS ORDERED: methylPREDNISolone SOD SUCCIN 125 MG in SODIUM CHLORIDE 0.9% 100 ML IVPB STA (19:20)
--- NOTE | 2022-11-01 19:24 | P.HPIM ---
History of Present Illness H&P Date: 11/01/22 The patient is a 67-year-old female with a PMH of COPD on 3L home O2 who presents to the emergency room with complaints of gradually worsening shortness of breath. The patient reports her breathing has been worsening over the past 3 days. She denies any cough. She denies any headache, lower extremity edema, nausea vomiting, fever or chills, chest pain, palpitations, changes in urination or bowel habits. No changes in appetite or weight. She denies any dizziness, numbness/weakness/tingling of the extremities. She went to see her PCP today, noted to be dyspnea and saturating in the low 80s on 4 L nasal cannula. She was sent from her PCP clinic. In the ED, she was noted to be 93% on 4 L nasal cannula. She was tachypneic with a respiratory rate of 22. Vital signs are otherwise stable. CBC showed a leukocytosis of 15.5. D-dimer was negative. CMP showed potassium of 5.6, bicarb 39, BUN of 21. Troponin was hurt 0.014. BNP 151. Chest x-ray in the emergency room showed interstitial density mid and lower lungs consider bronchitis, asthma or atypical pneumonias. Review of systems: Pertinent positives and negatives as discussed in HPI, a complete review of systems was performed and all other systems are negative. General: non toxic, mild distress, appears at stated age Derm: warm, dry Head: atraumatic, normocephalic, symmetric Eyes: EOMI, no lid lag, anicteric sclera Mouth: no lip lesion, mucus membranes moist Cardiovascular: Tachycardic, no murmur, positive posterior tibial pulse bilateral, Lungs: Diffuse expiratory wheezing bilateral, no rhonchi, no rales , no access ory muscle use Abdominal: soft, nontender to palpation, no guarding, no appreciable organomegaly Ext: no gross muscle atrophy, no edema, no contractures Neuro: CN II-XI grossly intact, no focal neuro deficits Psych: Alert, oriented, appropriate affect #Acute COPD exacerbation #Acute on chronic hypoxic respiratory failure #Acute bronchitis Continue with Solu-Medrol, DuoNeb's. Continue with azithromycin. Supplemental oxygen. Telemetry monitoring. #Hyperkalemia Hemolyzed. Repeat BMP tomorrow. #Metabolic alkalosis, suspected compensatory secondary to respiratory acidosis Obtain VBG. DVT prophylaxis Lovenox The patient is admitted with an anticipated less than 2 midnight stay for evaluation of acute COPD exacerbation. CODE STATUS: Full Code Discussed with: Patient Anticipated discharge date: 2-[address]: Home Past Medical History Past Medical History: Cancer, COPD, Hearing Disorder / Deafness, Hypertension, Pneumonia, Rheumatoid Arthritis (RA) Additional Past Medical History / Comment(s): Chronic hypoxic and hypercarbic respiratory failure, home oxygen at 3L/NC ATC, bronchitis, covid pne 12/2020, cpap use at bedtime, pt states she was taken off lung transplant list d/t "spot" on her L lung but recent cat scan done and pt told it is not cancer but possibly scar tissue, chronic bilateral lower extremity edema, 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 History of Any Multi-Drug Resistant Organisms: MRSA Date of last positivie culture/infection: february 2021 MDRO Source:: urine Past Surgical History: Appendectomy, Back Surgery, Bowel Resection, Ear Surgery, Hysterectomy, Joint Replacement Additional Past Surgical History / Comment(s): Partial vulvectomy, TAD with unilateral oophorectomy, R colectomy, EGD, colonoscopy, total R knee arthroplasty, kyphoplasty/bx, pain procedures, bilateral myringotomy/tubes. Past Anesthesia/Blood Transfusion Reactions: No Reported Reaction Additional Past Anesthesia/Blood Transfusion Reaction / Comment(s): States is not supposed to have general anesthesia. "Cannot have tube in throat." Past Psychological History: ADD/ADHD, Anxiety, Depression Smoking Status: Former smoker Past Alcohol Use History: None Reported Past Drug Use History: None Reported - Past Family History Father Family Medical History: Cancer, COPD Additional Family Medical History / Comment(s): COLON cancer. Mother Family Medical History: Cancer Additional Family Medical History / Comment(s): ESOPHAGUS cancer. Sister(s) Family Medical History: Cancer Additional Family Medical History / Comment(s): CERVICAL cancer, basal cell cancer. Medications and Allergies Home Medications Medication Instructions Recorded Confirmed Type DULoxetine HCL [Cymbalta] 30 mg PO DAILY 01/15/21 11/01/22 History Montelukast [Singulair] 10 mg PO HS 02/19/21 11/01/22 History Ferrous Sulfate [Iron (65 MG 325 mg PO DAILY 07/04/21 11/01/22 History Elemental)] Magnesium Oxide [Mag-Ox] 200 mg PO DAILY 07/14/21 11/01/22 History Meloxicam 15 mg PO DAILY 08/05/21 11/01/22 History Cetirizine HCl 10 mg PO DAILY 04/20/22 11/01/22 History Albuterol Sulfate [Ventolin HFA] 2 puff INHALATION RT-Q6H PRN 08/24/22 11/01/22 History Budesonide [Pulmicort] 0.5 mg INHALATION RT-BID 09/19/22 11/01/22 History Formoterol Fumarate [Perforomist] 20 mcg INHALATION RT-BID 09/19/22 11/01/22 History Ipratropium-Albuterol Nebulize 3 ml INHALATION RT-QID 09/19/22 11/01/22 History [Duoneb 0.5 mg-3 mg/3 ml Soln] Theophylline 24 Hour [Sekou-24] 400 mg PO DAILY 09/19/22 11/01/22 History Verapamil HCl [Verapamil ER] 120 mg PO DAILY 09/19/22 11/01/22 History rOPINIRole HCL [Requip] 4 mg PO HS 09/19/22 11/01/22 History Allergies Allergy/AdvReac Type Severity Reaction Status Date / Time infliximab [From Remicade] Allergy Dyspnea/HIV Verified 10/10/22 07:48 ES propoxyphene [From Darvon] Allergy Rash/Hives Verified 10/10/22 07:48 adhesive tape AdvReac "is hard Verified 10/10/22 07:48 on skin" Physical Exam Vitals: Vital Signs Temp Pulse Resp BP Pulse Ox 11/01/22 16:44 22 11/01/22 16:35 80 20 133/96 97 11/01/22 15:13 97.7 F 94 20 146/81 93 L Intake and Output 11/01/22 11/01/22 11/01/22 06:59 14:59 22:59 Other: Weight 82.554 kg Results CBC & Chem 7: 11/01/22 16:33 11/01/22 16:33 Labs: Abnormal Lab Results - Last 24 Hours (Table) 11/01/22 11/01/22 11/01/22 Range/Units 16:33 16:33 16:33 WBC 15.5 H (3.8-10.6) k/uL RBC 3.78 L (3.80-5.40) m/uL Neutrophils # 12.9 H (1.3-7.7) k/uL APTT 21.4 L (22.0-30.0) sec Potassium 5.6 H (3.5-5.1) mmol/L Carbon Dioxide 39 H (22-30) mmol/L BUN 21 H (7-17) mg/dL Total Protein 5.9 L (6.3-8.2) g/dL Albumin 3.4 L (3.5-5.0) g/dL
[2022-11-01] MEDS ORDERED: methylPREDNISolone SOD SUCCI 125 MG/2 ML VIAL IV STA (19:27)
[2022-11-01] MEDS: IPRATROPIUM-ALBUTEROL 3 ML NEB INHALATION SCH (20:12)
[2022-11-01] MEDS: FORMOTEROL FUMARATE 20 MCG/2 ML NEBU INHALATION SCH (20:12)
[2022-11-01] MEDS: BUDESONIDE 0.5 MG/2 ML NEBU INHALATION SCH (20:13)
[2022-11-01] MEDS: AZITHROMYCIN 500 MG TAB PO SCH (20:27)
[2022-11-01 20:43] LABS: VBG PH 7.4 (7.31-7.41)
[2022-11-01] MEDS ORDERED: NALOXONE 0.4 MG/ML 1 ML VIAL IVP PRN (20:54)
--- NOTE | 2022-11-01 20:54 | ED ---
SOB HPI - General Chief Complaint: Shortness of Breath Stated Complaint: SOB Time Seen by Provider: 11/01/22 14:37 Source: patient, RN notes reviewed Mode of arrival: ambulatory Limitations: no limitations - History of Present Illness Initial Comments: 67-year-old female with a history of COPD who was sent in from the doctor's office today because of progressively worsening shortness of breath for the past 3 days especially admitted been going on as well as a week his exertional dyspnea but no overt fevers chills sweats no nausea no vomiting no cough or phlegm production. MD Complaint: shortness of breath - Related Data Home Medications Medication Instructions Recorded Confirmed DULoxetine HCL [Cymbalta] 30 mg PO DAILY 01/15/21 11/01/22 Montelukast [Singulair] 10 mg PO HS 02/19/21 11/01/22 Ferrous Sulfate [Iron (65 MG 325 mg PO DAILY 07/04/21 11/01/22 Elemental)] Magnesium Oxide [Mag-Ox] 200 mg PO DAILY 07/14/21 11/01/22 Meloxicam 15 mg PO DAILY 08/05/21 11/01/22 Cetirizine HCl 10 mg PO DAILY 04/20/22 11/01/22 Albuterol Sulfate [Ventolin HFA] 2 puff INHALATION RT-Q6H PRN 08/24/22 11/01/22 Budesonide [Pulmicort] 0.5 mg INHALATION RT-BID 09/19/22 11/01/22 Formoterol Fumarate [Perforomist] 20 mcg INHALATION RT-BID 09/19/22 11/01/22 Ipratropium-Albuterol Nebulize 3 ml INHALATION RT-QID 09/19/22 11/01/22 [Duoneb 0.5 mg-3 mg/3 ml Soln] Theophylline 24 Hour [Sekou-24] 400 mg PO DAILY 09/19/22 11/01/22 Verapamil HCl [Verapamil ER] 120 mg PO DAILY 09/19/22 11/01/22 rOPINIRole HCL [Requip] 4 mg PO HS 09/19/22 11/01/22 Allergies Allergy/AdvReac Type Severity Reaction Status Date / Time infliximab [From Remicade] Allergy Dyspnea/HIV Verified 10/10/22 07:48 ES propoxyphene [From Darvon] Allergy Rash/Hives Verified 10/10/22 07:48 adhesive tape AdvReac "is hard Verified 10/10/22 07:48 on skin" Review of Systems ROS Statement: Those systems with pertinent positive or pertinent negative responses have been documented in the HPI. ROS Other: All systems not noted in ROS Statement are negative. 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 History of Any Multi-Drug Resistant Organisms: MRSA Date of last positivie culture/infection: february 2021 MDRO Source:: urine Past Surgical History: Appendectomy, Back Surgery, Bowel Resection, Ear Surgery, Hysterectomy, Joint Replacement Additional Past Surgical History / Comment(s): Partial vulvectomy, TAD with unilateral oophorectomy, R colectomy, EGD, colonoscopy, total R knee arthroplast y, kyphoplasty/bx, pain procedures, bilateral myringotomy/tubes. Past Anesthesia/Blood Transfusion Reactions: No Reported Reaction Additional Past Anesthesia/Blood Transfusion Reaction / Comment(s): States is not supposed to have general anesthesia. "Cannot have tube in throat." Past Psychological History: ADD/ADHD, Anxiety, Depression Smoking Status: Former smoker Past Alcohol Use History: None Reported Past Drug Use History: None Reported - Past Family History Father Family Medical History: Cancer, COPD Additional Family Medical History / Comment(s): COLON cancer. Mother Family Medical History: Cancer Additional Family Medical History / Comment(s): ESOPHAGUS cancer. Sister(s) Family Medical History: Cancer Additional Family Medical History / Comment(s): CERVICAL cancer, basal cell cancer. General Exam - General Exam Comments Initial Comments: This is a well-developed well-nourished awake alert oriented 4 female Limitations: no limitations General appearance: alert, anxious Head exam: Present: atraumatic, normocephalic, normal inspection Eye exam: Present: normal appearance, PERRL, EOMI. Absent: scleral icterus, conjunctival injection, periorbital swelling ENT exam: Present: normal exam, mucous membranes moist Neck exam: Present: normal inspection, full ROM, other (Review of your bruits). Absent: tenderness, meningismus, lymphadenopathy Respiratory exam: Present: decreased breath sounds. Absent: respiratory distress, wheezes, rales, rhonchi, stridor Cardiovascular Exam: Present: regular rate, normal rhythm, normal heart sounds. Absent: systolic murmur, diastolic murmur, rubs, gallop, clicks GI/Abdominal exam: Present: soft, normal bowel sounds. Absent: distended, tenderness, guarding, rebound, rigid Extremities exam: Present: normal inspection, full ROM, normal capillary refill. Absent: tenderness, pedal edema, joint swelling, calf tenderness Back exam: Present: normal inspection Neurological exam: Present: alert, oriented X3, CN II-XII intact Psychiatric exam: Present: normal affect, normal mood Skin exam: Present: warm, dry, intact, normal color. Absent: rash Course Vital Signs 11/01/22 11/01/22 11/01/22 15:13 16:35 16:44 Temperature 97.7 F Pulse Rate 94 80 Respiratory 20 20 22 Rate Blood Pressure 146/81 133/96 O2 Sat by Pulse 93 L 97 Oximetry 11/01/22 11/01/22 11/01/22 20:15 20:30 20:31 Temperature Pulse Rate 100 112 H 112 H Respiratory Rate Blood Pressure O2 Sat by Pulse Oximetry 11/01/22 11/01/22 11/01/22 20:33 20:36 20:37 Temperature 97 F L 99 F Pulse Rate 100 112 H Respiratory 18 Rate Blood Pressure 157/58 O2 Sat by Pulse 95 Oximetry Medical Decision Making - Medical Decision Making Had previously discuss case Dr. Hoyos also later with Dr. dagoberto Dorado. Pat ient be admitted for inpatient evaluation treatment of acute COPD exacerbation Was pt. sent in by a medical professional or institution? @ Dr. Hoyos-[by , PA, SUPERVISOR C[employer]TING [employer]PARTMENT, urgent care, hospital, or fci] Did you speak to anyone other than the patient for history? @ Family member-[EMS, parent, family, police, friend?] Did you review nursing and triage notes? @ Yes and agree -[agree or disagree, why?] Were old charts reviewed? @ -[outside hosp., previous admissions, EMS record, old EKG, old radiological studies, urgent care reports/EKGs, fci records?] Differential Diagnosis? @ Dyspnea secondary to COPD versus pneumonia versus coronary artery disease- [chest pain, altered mental status abdominal pain women, abdominal pain men, vaginal bleeding, weakness, fever, dyspnea, syncope, headache, dizziness, GI bleed, back pain, seizure] EKG interpreted by me (3pts min.)? @ S by me yesterday by me -[none] X-rays interpreted by me (1pt min.)? @ -[none] CT interpreted by me (1pt min.)? @ -[none] U/S interpreted by me (1pt. min.)? @ -[none] What testing was considered but not performed? (CT, X-rays, U/S, labs)? Why? @ [CT, X-rays, U/S, labs? Why?] What meds were considered but not given? Why? @ -[none] Did you discuss the management of the patient with other professionals? @ Dr. Verma-[professionals i.e. , PA, SUPERVISOR [employer]TING [employer]PARTMENT, Lab, RT, Psych Nurse, V Belt Builder, Software Firmware Engineer, Teacher, Teacher Of Family And Consumer Science, field case manager? Give summary] Did you reconcile home meds? @ -[none] Was smoking cessation discussed for >3mins.? @ -[none] Was critical care preformed (if so, how long)? @ -[none] Were there social determinants of health that impacted care today? How? (Homelessness, low income, unemployed, alcoholism, drug addiction, transportation, low edu. Level, literacy, decrease access to med. care, alf, rehab)? @ -[Homelessness, low income, unemployed, alcoholism, drug addiction, transp ortation, low edu. Level, literacy, decrease access to med. care, alf, rehab?] Was there de-escalation of care discussed even if they declined? (Discuss DNR or withdrawal of care, Hospice)? @ -[Discuss DNR or withdrawal of care, Hospice?] What co-morbidities impacted this encounter? (DM, HTN, Smoking, COPD, CAD, Cancer, CVA, Hep., AIDS, mental health diagnosis, sleep apnea, morbid obesity)? @ -[DM, HTN, Smoking, COPD, CAD, Cancer, CVA, Hep., AIDS, mental health diagnosis, sleep apnea, morbid obesity?] Was patient admitted / discharged? @ Patient was admitted-[hospital course] Undiagnosed new problem with uncertain prognosis? @ -[none] Drug Therapy requiring intensive monitoring for toxicity (Heparin, Nitro, Insulin, Cardizem)? @ -[none] Were any procedures done? @ -[none] Diagnosis/symptom? @Acute COPD exacerbation, acute bronchitis, chronic type hypoxic respiratory failure-[default] Acute, or Chronic, or Acute on Chronic? @ Acute on chronic-[default] Uncomplicated (without systemic symptoms) or Complicated (systemic symptoms)? @ -[default] Side effects of treatment? @ -[none] Exacerbation, Progression, or Severe Exacerbation] @ -[no] Poses a threat to life or bodily function? @ If not treated-[no] - Lab Data Result diagrams: 11/01/22 16:33 11/01/22 16:33 Lab Results 11/01/22 11/01/22 11/01/22 Range/Units 16:33 16:33 16:33 WBC 15.5 H (3.8-10.6) k/uL RBC 3.78 L (3.80-5.40) m/uL Hgb 11.8 (11.4-16.0) gm/dL Hct 37.2 (34.0-46.0) % MCV 98.4 (80.0-100.0) fL MCH 31.2 (25.0-35.0) pg MCHC 31.7 (31.0-37.0) g/dL RDW 15.2 (11.5-15.5) % Plt Count 167 (150-450) k/uL MPV 9.1 Neutrophils % 83 % Lymphocytes % 11 % Monocytes % 4 % Eosinophils % 1 % Basophils % 0 % Neutrophils # 12.9 H (1.3-7.7) k/uL Lymphocytes # 1.6 (1.0-4.8) k/uL Monocytes # 0.6 (0-1.0) k/uL Eosinophils # 0.1 (0-0.7) k/uL Basophils # 0.1 (0-0.2) k/uL Hypochromasia Moderate Macrocytosis Slight PT 9.3 (9.0-12.0) sec INR 0.9 (<1.2) APTT 21.4 L (22.0-30.0) sec D-Dimer 0.40 (<0.60) mg/L FEU VBG pH (7.31-7.41) VBG pCO2 (37-51) mmHg VBG HCO3 (24-28) mmol/L Sodium 138 (137-145) mmol/L Potassium 5.6 H (3.5-5.1) mmol/L Chloride 98 (98-107) mmol/L Carbon Dioxide 39 H (22-30) mmol/L Anion Gap 1 mmol/L BUN 21 H (7-17) mg/dL Creatinine 0.55 (0.52-1.04) mg/dL Est GFR (CKD-EPI)AfAm >90 (>60 ml/min/1.73 sqM) Est GFR (CKD-EPI)NonAf >90 (>60 ml/min/1.73 sqM) Glucose 86 (74-99) mg/dL Plasma Lactic Acid Osmani (0.7-2.0) mmol/L Calcium 9.0 (8.4-10.2) mg/dL Magnesium 2.0 (1.6-2.3) mg/dL Total Bilirubin 0.6 (0.2-1.3) mg/dL AST 36 (14-36) U/L ALT 19 (4-34) U/L Alkaline Phosphatase 50 (38-126) U/L Troponin I (0.000-0.034) ng/mL NT-Pro-B Natriuret Pep pg/mL Total Protein 5.9 L (6.3-8.2) g/dL Albumin 3.4 L (3.5-5.0) g/dL 11/01/22 11/01/22 11/01/22 Range/Units 16:33 16:33 16:33 WBC (3.8-10.6) k/uL RBC (3.80-5.40) m/uL Hgb (11.4-16.0) gm/dL Hct (34.0-46.0) % MCV (80.0-100.0) fL MCH (25.0-35.0) pg MCHC (31.0-37.0) g/dL RDW (11.5-15.5) % Plt Count (150-450) k/uL MPV Neutrophils % % Lymphocytes % % Monocytes % % Eosinophils % % Basophils % % Neutrophils # (1.3-7.7) k/uL Lymphocytes # (1.0-4.8) k/uL Monocytes # (0-1.0) k/uL Eosinophils # (0-0.7) k/uL Basophils # (0-0.2) k/uL Hypochromasia Macrocytosis PT (9.0-12.0) sec INR (<1.2) APTT (22.0-30.0) sec D-Dimer (<0.60) mg/L FEU VBG pH (7.31-7.41) VBG pCO2 (37-51) mmHg VBG HCO3 (24-28) mmol/L Sodium (137-145) mmol/L Potassium (3.5-5.1) mmol/L Chloride (98-107) mmol/L Carbon Dioxide (22-30) mmol/L Anion Gap mmol/L BUN (7-17) mg/dL Creatinine (0.52-1.04) mg/dL Est GFR (CKD-EPI)AfAm (>60 ml/min/1.73 sqM) Est GFR (CKD-EPI)NonAf (>60 ml/min/1.73 sqM) Glucose (74-99) mg/dL Plasma Lactic Acid Osmani 0.9 (0.7-2.0) mmol/L Calcium (8.4-10.2) mg/dL Magnesium (1.6-2.3) mg/dL Total Bilirubin (0.2-1.3) mg/dL AST (14-36) U/L ALT (4-34) U/L Alkaline Phosphatase (38-126) U/L Troponin I 0.014 (0.000-0.034) ng/mL NT-Pro-B Natriuret Pep 151 pg/mL Total Protein (6.3-8.2) g/dL Albumin (3.5-5.0) g/dL 11/01/22 Range/Units 20:41 WBC (3.8-10.6) k/uL RBC (3.80-5.40) m/uL Hgb (11.4-16.0) gm/dL Hct (34.0-46.0) % MCV (80.0-100.0) fL MCH (25.0-35.0) pg MCHC (31.0-37.0) g/dL RDW (11.5-15.5) % Plt Count (150-450) k/uL MPV Neutrophils % % Lymphocytes % % Monocytes % % Eosinophils % % Basophils % % Neutrophils # (1.3-7.7) k/uL Lymphocytes # (1.0-4.8) k/uL Monocytes # (0-1.0) k/uL Eosinophils # (0-0.7) k/uL Basophils # (0-0.2) k/uL Hypochromasia Macrocytosis PT (9.0-12.0) sec INR (<1.2) APTT (22.0-30.0) sec D-Dimer (<0.60) mg/L FEU VBG pH 7.40 (7.31-7.41) VBG pCO2 66 H (37-51) mmHg VBG HCO3 40 H (24-28) mmol/L Sodium (137-145) mmol/L Potassium (3.5-5.1) mmol/L Chloride (98-107) mmol/L Carbon Dioxide (22-30) mmol/L Anion Gap mmol/L BUN (7-17) mg/dL Creatinine (0.52-1.04) mg/dL Est GFR (CKD-EPI)AfAm (>60 ml/min/1.73 sqM) Est GFR (CKD-EPI)NonAf (>60 ml/min/1.73 sqM) Glucose (74-99) mg/dL Plasma Lactic Acid Osmani (0.7-2.0) mmol/L Calcium (8.4-10.2) mg/dL Magnesium (1.6-2.3) mg/dL Total Bilirubin (0.2-1.3) mg/dL AST (14-36) U/L ALT (4-34) U/L Alkaline Phosphatase (38-126) U/L Troponin I (0.000-0.034) ng/mL NT-Pro-B Natriuret Pep pg/mL Total Protein (6.3-8.2) g/dL Albumin (3.5-5.0) g/dL - EKG Data EKG Comments: EKG read by me sinus rhythm a 96. Ago 134 QRS duration 78 QT since QTC 325/378 some artifact present this correlates an EKG dated 10/09/22 Disposition Clinical Impression: COPD with exacerbation, Acute bronchitis Disposition: ADMITTED IP TO THIS HOSP Condition: Fair Referrals: Nathanael Mckeon MD [Primary Care Provider] - 1-2 days Decision Date: 11/01/22 Decision Time: 20:53
[2022-11-01] MEDS: MONTELUKAST 10 MG TAB PO SCH (21:10)
[2022-11-01] MEDS: rOPINIRole HCL 4 MG TABLET PO SCH (21:33)
[2022-11-02] MEDS ORDERED: methylPREDNISolone SOD SUCCIN 60 MG in SODIUM CHLORIDE 0.9% 100 ML IVPB SCH ×2
[2022-11-02] MEDS: methylPREDNISolone SOD SUCCI 125 MG/2 ML VIAL IV SCH ×5 (00:04→23:39)
[2022-11-02] MEDS: FORMOTEROL FUMARATE 20 MCG/2 ML NEBU INHALATION SCH ×2 (08:00→20:28)
[2022-11-02] MEDS: IPRATROPIUM-ALBUTEROL 3 ML NEB INHALATION SCH ×4 (08:00→20:28)
[2022-11-02] MEDS: BUDESONIDE 0.5 MG/2 ML NEBU INHALATION SCH ×2 (08:00→20:28)
--- NOTE | 2022-11-02 09:11 | P.CNPUL ---
History of Present Illness Consult date: 11/02/22 Reason for consult: dyspnea, COPD History of present illness: 67-year-old female patient with advanced and end-stage COPD oxygen dependent at 4 L/m nasal cannula. She was at one point on the transplant list and currently she is off the list. Her last hospitalization was in September 2022 for COPD exacerbation the patient has had multiple hospitalization. The patient was discharged home. She contacted my office because of increased shortness of breath. Given a prednisone burst taper. She ended up in the hospital through her primary care and she did not have the chest to take the steroids. During this current admission, had influenza, Covid 19 and RSV screen was negative. White cycles of 15.5 with a hemoglobin of 11.8 and the patient's BUN is at 21 with a creatinine of 0.5 and a potassium level of 5.6 with a sodium level of 138. Chest x-ray that was done at time of admission showed no acute abnormalities. It is consistent with chronic lung disease and COPD and chronic interstitial changes bilaterally. The patient is currently on oxygen and she is on 4 L nasal cannula. She was started on bronchodilators and steroids. She is currently on IV Solu-Medrol. She is having difficulties in completing full sentences. Noted the patient also has a VPAP at a minimum pressure of 4, maximum pressure of 15 and a pressure support of 4 and she was using it on outpatient basis. She does have a oxygen concentrator and a portable tank at 3 L. Limited edema lower extremities. No signs of any CO2 narcosis. Review of Systems CONSTITUTIONAL: Denies any recent significant weight loss or weight gain. EYES: Denies change in vision. EARS, NOSE, MOUTH, THROAT: Denies headaches, denies sore throat. CARDIOVASCULAR: Denies chest pain, palpitations or syncopal episodes. RESPIRATORY: Positive for shortness of breath, cough, congestion no hemoptysis. GASTROINTESTINAL: Denies change in appetite, denies abdominal pain GENITOURINARY: Denies hematuria, denies infections. MUSKULOSKELETAL: Denies pain, denies swelling. INTEGUMENTARY: Denies rash, denies eczema. NEUROLOGICAL: Denies recent memory loss, no recent seizure activity. PSYCHIATRIC: Denies anxiety, denies depression. HEMATOLOGIC/LYMPHATIC: Denies anemia, denies enlarged lymph nodes. 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 History of Any Multi-Drug Resistant Organisms: MRSA Date of last positivie culture/infection: february 2021 MDRO Source:: urine Past Surgical History: Appendectomy, Back Surgery, Bowel Resection, Ear Surgery, Hysterectomy, Joint Replacement Additional Past Surgical History / Comment(s): Partial vulvectomy, TAD with unilateral oophorectomy, R colectomy, EGD, colonoscopy, total R knee arthroplasty, kyphoplasty/bx, pain procedures, bilateral myringotomy/tubes. Past Anesthesia/Blood Transfusion Reactions: No Reported Reaction Additional Past Anesthesia/Blood Transfusion Reaction / Comment(s): States is not supposed to have general anesthesia. "Cannot have tube in throat." Past Psychological History: ADD/ADHD, Anxiety, Depression Additional Psychological History / Comment(s): Pt resides alone. She has difficulty driving, fearful, so her sister drives her places and assists pt with medications. Pt has home oxygen, nebulizer and Cpap. Pt states her depression has been worse lately but denies any thoughts/plans of suicide. Smoking Status: Former smoker Past Alcohol Use History: None Reported Additional Past Alcohol Use History / Comment(s): Pt started smoking in 1965 and quit in 1999. She smoked 1-2 ppd. Past Drug Use History: None Reported Additional Drug Use History / Comment(s): Quit using Marijuana 04/2016. - Past Family History Father Family Medical History: Cancer, COPD Additional Family Medical History / Comment(s): COLON cancer. Mother Family Medical History: Cancer Additional Family Medical History / Comment(s): ESOPHAGUS cancer. Sister(s) Family Medical History: Cancer Additional Family Medical History / Comment(s): CERVICAL cancer, basal cell cancer. Medications and Allergies Home Medications Medication Instructions Recorded Confirmed Type DULoxetine HCL [Cymbalta] 30 mg PO DAILY 01/15/21 11/01/22 History Montelukast [Singulair] 10 mg PO HS 02/19/21 11/01/22 History Ferrous Sulfate [Iron (65 MG 325 mg PO DAILY 07/04/21 11/01/22 History Elemental)] Magnesium Oxide [Mag-Ox] 200 mg PO DAILY 07/14/21 11/01/22 History Meloxicam 15 mg PO DAILY 08/05/21 11/01/22 History Cetirizine HCl 10 mg PO DAILY 04/20/22 11/01/22 History Albuterol Sulfate [Ventolin HFA] 2 puff INHALATION RT-Q6H PRN 08/24/22 11/01/22 History Budesonide [Pulmicort] 0.5 mg INHALATION RT-BID 09/19/22 11/01/22 History Formoterol Fumarate [Perforomist] 20 mcg INHALATION RT-BID 09/19/22 11/01/22 History Ipratropium-Albuterol Nebulize 3 ml INHALATION RT-QID 09/19/22 11/01/22 History [Duoneb 0.5 mg-3 mg/3 ml Soln] Theophylline 24 Hour [Sekou-24] 400 mg PO DAILY 09/19/22 11/01/22 History Verapamil HCl [Verapamil ER] 120 mg PO DAILY 09/19/22 11/01/22 History rOPINIRole HCL [Requip] 4 mg PO HS 09/19/22 11/01/22 History Allergies Allergy/AdvReac Type Severity Reaction Status Date / Time infliximab [From Remicade] Allergy Dyspnea/HIV Verified 10/10/22 07:48 ES propoxyphene [From Darvon] Allergy Rash/Hives Verified 10/10/22 07:48 adhesive tape AdvReac "is hard Verified 10/10/22 07:48 on skin" Physical Exam Vitals: Vital Signs Temp Pulse Pulse Resp BP BP Pulse Ox 11/02/22 08:18 108 H 11/02/22 08:11 104 H 11/02/22 08:10 104 H 11/02/22 08:01 104 H 93 L 11/02/22 02:00 98.4 F 91 16 123/62 93 L 11/01/22 21:58 98.4 F 100 24 158/72 93 L 11/01/22 21:49 104 H 20 164/80 92 L 11/01/22 20:37 99 F 11/01/22 20:36 112 H 11/01/22 20:33 97 F L 100 18 157/58 95 11/01/22 20:31 112 H 11/01/22 20:30 112 H 11/01/22 20:15 100 11/01/22 16:44 22 11/01/22 16:35 80 20 133/96 97 11/01/22 15:13 97.7 F 94 20 146/81 93 L Intake and Output 11/01/22 11/02/22 11/02/22 22:59 06:59 14:59 Other: # Voids 0 Weight 82.554 kg GENERAL EXAM: Alert, 67-year-old female, on 4 L nasal cannula, fairly comfortable in no apparent distress. 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 EYES: Normal reaction of pupils, equal size. NOSE: Clear with pink turbinates. THROAT: No erythema or exudates. NECK: No masses, no JVD. CHEST: No chest wall deformity. LUNGS: Equal air entry with bilateral end expiratory wheeze, diminished. CVS: S1 and S2 normal with no audible murmur, regular rhythm. ABDOMEN: No hepatosplenomegaly, normal bowel sounds, no guarding or rigidity. SPINE: No scoliosis or deformity SKIN: No rashes CENTRAL NERVOUS SYSTEM: No focal deficits, tone is normal in all 4 extremities. EXTREMITIES: There is no peripheral edema. No clubbing, no cyanosis. Peripheral pulses are intact. Results - Laboratory Findings CBC and BMP: 11/01/22 16:33 11/01/22 16:33 PT/INR, D-dimer PT 9.3 sec (9.0-12.0) 11/01/22 16:33 INR 0.9 (<1.2) 11/01/22 16:33 D-Dimer 0.40 mg/L FEU (<0.60) 11/01/22 16:33 Abnormal lab findings: Abnormal Labs 11/01/22 11/01/22 11/01/22 16:33 16:33 16:33 WBC 15.5 H RBC 3.78 L Neutrophils # 12.9 H APTT 21.4 L VBG pCO2 VBG HCO3 Potassium 5.6 H Carbon Dioxide 39 H BUN 21 H Total Protein 5.9 L Albumin 3.4 L 11/01/22 20:41 WBC RBC Neutrophils # APTT VBG pCO2 66 H VBG HCO3 40 H Potassium Carbon Dioxide BUN Total Protein Albumin - Diagnostic Findings Chest x-ray: image reviewed Assessment and Plan Plan: Acute exacerbation of chronic obstructive pulmonary disease, no evidence of pneumonia. The patient has advanced and end-stage COPD and she is currently oxygen dependent. She has had multiple hospitals issue for COPD exacerbation and she has significant limitation performance and functional status due to advanced COPD. She is currently on oxygen at 3 L. the patient was recently hospitalized in September 2022 and she was discharged home on a prednisone burst taper and after completing a prednisone taper, the patient symptoms of COPD exacerbated and accordingly the patient was hospitalized again. The viral screen was negative. Chest x-ray remains unchanged. The patient is on maximal treatment. She was in the transportation list in the past. Acute on chronic hypoxemic respiratory failure secondary to above, does have home oxygen at 3 L/m per nasal cannula Acute on chronic hypercapnic respiratory failure secondary to above, on VPAP auto History of a left upper lobe lesion measuring 18 x 13 mm in size. Being followed in the outpatient setting History of CoVID in 19 pneumonia History of chronic lower extremity edema Hypertension Attention deficit hyperactivity disorder Rheumatoid arthritis Chronic back pain Former smoker Plan: Agree on the current treatment and continue the IV Solu-Medrol Continue Perforomist and Pulmicort neb twice a day Start the patient on Spiriva 1 inhalation a day Continue DuoNeb about treatments 4 times a day VPAP auto EPAP minimum of 5 and a maximum of 15 with a pressure support of 4 In my opinion, she may not be a good candidate for transplantation. Ultimately this will be left up to the team at [facility] where she was listed originally. Prognosis poor, the patient would benefit from long-term maintenance steroids probably somewhere between 10-15 mg on a daily basis. I
[2022-11-02 09:51] LABS: HCT 38.7 % (37.2-46.3); HGB 11.7 g/dL (12.0-15.0); MCH 30.4 pg (27.0-32.0); MCHC 30.2 g/dL (32.0-37.0); MCV 100.5 fL (80.0-97.0); Mean Platelet Volume 11.5 fL (9.5-12.2); NRBC Per 100 WBC 0 /100 WBCS (0.0-0.0); Platelet Count 177 X 10*3/uL (140-440); RBC 3.85 X 10*6/uL (4.10-5.20); RDW 16.2 % (11.5-14.5)
[2022-11-02 10:04] LABS: African American GFR (CKD) 107.8 (60.0-200.0); Anion Gap 9.5 mmol/L (10.00-18.00); BUN/Creat Ratio 28.83 Ratio (12.00-20.00); Blood Urea Nitrogen 17.3 mg/dL (9.0-27.0); Calcium 9.3 mg/dL (8.7-10.3); Carbon Dioxide 37.5 mmol/L (20.0-27.5); Potassium 4.9 mmol/L (3.5-5.5)
[2022-11-02] MEDS: DULoxetine HCL 30 MG CAPSULE.DR PO SCH (10:10)
[2022-11-02] MEDS: ENOXAPARIN 40 MG/0.4 ML SYRINGE SQ SCH (10:10)
[2022-11-02] MEDS: THEOPHYLLINE 24 HOUR 400 MG CAP.ER.24H PO SCH (10:10)
[2022-11-02] MEDS: VERAPAMIL SR 120 MG TABLET.ER PO SCH (10:10)
[2022-11-02] MEDS: LORATADINE 10 MG TAB PO SCH (10:11)
[2022-11-02 11:37] LABS: Basophils # (A) 0.02 X 10*3/uL (0.00-0.10); Basophils % (A) 0.1 %; Eosinophils # (A) 0 X 10*3/uL (0.04-0.35); Eosinophils % (A) 0 %; Immature Grans, Automated 1.1 %; Lymphocytes # (A) 0.57 X 10*3/uL (0.90-5.00); Lymphocytes % (A) 3.4 %; Monocytes # (A) 0.05 X 10*3/uL (0.20-1.00); Monocytes % (A) 0.3 %; Neutrophils # (A) 16.07 X 10*3/uL (1.80-7.70); Neutrophils % (A) 95.1 %; Stomatocytes 2+
[2022-11-02] MEDS: ACETAMINOPHEN TAB 325 MG TAB PO PRN (15:47)
--- NOTE | 2022-11-02 17:25 | P.PN ---
Subjective Progress Note Date: 11/02/22 The patient is a 67-year-old female with a PMH of COPD on 3L home O2 who presents to the emergency room with complaints of gradually worsening shortness of breath. The patient reports her breathing has been worsening over the past 3 days. She denies any cough. She denies any headache, lower extremity edema, nausea vomiting, fever or chills, chest pain, palpitations, changes in urination or bowel habits. No changes in appetite or weight. She denies any dizziness, numbness/weakness/tingling of the extremities. She went to see her PCP today, noted to be dyspnea and saturating in the low 80s on 4 L nasal cannula. She was sent from her PCP clinic. In the ED, she was noted to be 93% on 4 L nasal cannula. She was tachypneic with a respiratory rate of 22. Vital signs are otherwise stable. CBC showed a leukocytosis of 15.5. D-dimer was negative. CMP showed potassium of 5.6, bicarb 39, BUN of 21. Troponin was hurt 0.014. BNP 151. Chest x-ray in the emergency room showed interstitial density mid and lower lungs consider bronchitis, asthma or atypical pneumonias. Patient was seen and examined. No acute events overnight. Patient reports minimal improvement in her breathing. She is currently on 3 L nasal cannula. General: non toxic, mild distress, appears at stated age Derm: warm, dry Head: atraumatic, normocephalic, symmetric Eyes: EOMI, no lid lag, anicteric sclera Mouth: no lip lesion, mucus membranes moist Cardiovascular: Tachycardic, no murmur, positive posterior tibial pulse bilateral, Lungs: Diffuse expiratory wheezing bilateral, no rhonchi, no rales , no accessory muscle use Abdominal: soft, nontender to palpation, no guarding, no appreciable organomegaly Ext: no gross muscle atrophy, no edema, no contractures Neuro: no focal neuro deficits Psych: Alert, oriented, appropriate affect #Acute COPD exacerbation #Acute on chronic hypoxic respiratory failure #Metabolic alkalosis, suspected compensatory secondary to respiratory acidosis #Acute bronchitis VBG shows pH of 7.4, pCO2 of 66 and bicarb of 39 Continue with Solu-Medrol, DuoNeb's. Continue with azithromycin. Supplemental oxygen. Telemetry monitoring. Chronic conditions: Hypertension, ADHD, rheumatoid arthritis Home medications reviewed and restarted. Resolved: Hyperkalemia Objective - Vital Signs Vital signs: Vital Signs Temp 99 F 11/02/22 14:00 Pulse 110 H 11/02/22 15:55 Resp 20 11/02/22 14:00 BP 143/72 11/02/22 14:00 Pulse Ox 93 L 11/02/22 14:00 FiO2 Intake & Output 11/01/22 11/02/22 11/02/22 18:59 06:59 18:59 Weight 82.554 kg 82.554 kg Other: Voiding Method Bedside Commode # Voids 0 - Labs CBC & Chem 7: 11/02/22 05:41 11/02/22 05:41 Labs: Abnormal Lab Results - Last 24 Hours (Table) 11/01/22 11/02/22 11/02/22 Range/Units 20:41 05:41 05:41 WBC 16.90 H (4.50-10.00) X 10*3/uL RBC 3.85 L (4.10-5.20) X 10*6/uL Hgb 11.7 L (12.0-15.0) g/dL MCV 100.5 H (80.0-97.0) fL MCHC 30.2 L (32.0-37.0) g/dL RDW 16.2 H (11.5-14.5) % Immature Gran # 0.19 H (0.00-0.04) X 10*3/uL Neutrophils # 16.07 H (1.80-7.70) X 10*3/uL Lymphocytes # 0.57 L (0.90-5.00) X 10*3/uL Monocytes # 0.05 L (0.20-1.00) X 10*3/uL Eosinophils # 0 L (0.04-0.35) X 10*3/uL VBG pCO2 66 H (37-51) mmHg VBG HCO3 40 H (24-28) mmol/L Carbon Dioxide 37.5 H (20.0-27.5) mmol/L Anion Gap 9.50 L (10.00-18.00) mmol/L BUN/Creatinine Ratio 28.83 H (12.00-20.00) Ratio Glucose 174 H (70-110) mg/dL
[2022-11-02] MEDS ORDERED: INSULIN ASPART (NovoLOG) 100 UNIT/ML VIAL SQ SCH (18:26)
[2022-11-02 19:29] LABS: Glucose,Whole Blood 167 mg/dL (70-110)
[2022-11-02] MEDS: MONTELUKAST 10 MG TAB PO SCH (21:57)
[2022-11-02] MEDS: INSULIN ASPART (NovoLOG) 100 UNIT/ML VIAL SQ SCH (21:57)
[2022-11-02] MEDS: MELATONIN 5 MG TABLET PO PRN (22:15)
[2022-11-02] MEDS: AZITHROMYCIN 500 MG TAB PO SCH (22:15)
[2022-11-02] MEDS: rOPINIRole HCL 4 MG TABLET PO SCH (22:15)
[2022-11-03] MEDS: ALPRAZolam 0.5 MG TAB PO PRN (00:10)
[2022-11-03] MEDS: IPRATROPIUM-ALBUTEROL 3 ML NEB INHALATION PRN (04:01)
[2022-11-03 06:14] LABS: Glucose,Whole Blood 160 mg/dL (70-110)
[2022-11-03 06:19] LABS: Glucose,Whole Blood 130 mg/dL (70-110)
[2022-11-03] MEDS: INSULIN ASPART (NovoLOG) 100 UNIT/ML VIAL SQ SCH ×5 (06:24→20:32)
[2022-11-03] MEDS: methylPREDNISolone SOD SUCCI 125 MG/2 ML VIAL IV SCH ×4 (06:47→23:51)
[2022-11-03] MEDS: BUDESONIDE 0.5 MG/2 ML NEBU INHALATION SCH ×2 (07:50→20:43)
[2022-11-03] MEDS: IPRATROPIUM-ALBUTEROL 3 ML NEB INHALATION SCH ×4 (07:50→20:43)
[2022-11-03] MEDS: FORMOTEROL FUMARATE 20 MCG/2 ML NEBU INHALATION SCH ×2 (07:50→20:53)
[2022-11-03] MEDS: ENOXAPARIN 40 MG/0.4 ML SYRINGE SQ SCH (08:35)
[2022-11-03] MEDS: THEOPHYLLINE 24 HOUR 400 MG CAP.ER.24H PO SCH (08:36)
[2022-11-03] MEDS: LORATADINE 10 MG TAB PO SCH (08:36)
[2022-11-03] MEDS: DULoxetine HCL 30 MG CAPSULE.DR PO SCH (08:36)
[2022-11-03] MEDS: VERAPAMIL SR 120 MG TABLET.ER PO SCH (08:36)
[2022-11-03 11:05] LABS: Glucose,Whole Blood 190 mg/dL (70-110)
--- NOTE | 2022-11-03 11:26 | P.PN ---
Subjective Progress Note Date: 11/03/22 On 11/03/2022, the patient is still struggling with her breathing. She was hospitalized yesterday for another COPD exacerbation. She is known to have advanced COPD. She is currently on the management for COPD exacerbation. No new complaints otherwise for now. No signs of any CO2 narcosis. No angina. No palpitations. She remains on DuoNeb nebulized treatments [id number], IV Solu-Medrol, Perforomist and Pulmicort neb treatments twice a day and theophylline. Objective - Vital Signs Vital signs: Vital Signs Temp 97.5 F L 11/03/22 07:02 Pulse 104 H 11/03/22 08:05 Resp 18 11/03/22 07:02 BP 121/66 11/03/22 07:02 Pulse Ox 96 11/03/22 07:02 FiO2 Intake & Output 11/02/22 11/03/22 11/03/22 18:59 06:59 18:59 Intake Total 480 Balance 480 Intake: Oral 480 Other: Voiding Method Bedside Commode Bedside Commode # Voids 1 4 - Exam GENERAL EXAM: Alert, 67-year-old female, on 4 L nasal cannula, fairly comfortable in no apparent distress. 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 EYES: Normal reaction of pupils, equal size. NOSE: Clear with pink turbinates. THROAT: No erythema or exudates. NECK: No masses, no JVD. CHEST: No chest wall deformity. LUNGS: Equal air entry with bilateral end expiratory wheeze, diminished. CVS: S1 and S2 normal with no audible murmur, regular rhythm. ABDOMEN: No hepatosplenomegaly, normal bowel sounds, no guarding or rigidity. SPINE: No scoliosis or deformity SKIN: No rashes CENTRAL NERVOUS SYSTEM: No focal deficits, tone is normal in all 4 extremities. EXTREMITIES: There is no peripheral edema. No clubbing, no cyanosis. Peripheral pulses are intact. - Labs CBC & Chem 7: 11/02/22 05:41 11/02/22 05:41 Labs: Abnormal Lab Results - Last 24 Hours (Table) 11/02/22 11/02/22 11/03/22 Range/Units 05:41 19:28 06:13 Immature Gran # 0.19 H (0.00-0.04) X 10*3/uL Neutrophils # 16.07 H (1.80-7.70) X 10*3/uL Lymphocytes # 0.57 L (0.90-5.00) X 10*3/uL Monocytes # 0.05 L (0.20-1.00) X 10*3/uL Eosinophils # 0 L (0.04-0.35) X 10*3/uL POC Glucose (mg/dL) 167 H 160 H (70-110) mg/dL 11/03/22 11/03/22 Range/Units 06:18 11:03 Immature Gran # (0.00-0.04) X 10*3/uL Neutrophils # (1.80-7.70) X 10*3/uL Lymphocytes # (0.90-5.00) X 10*3/uL Monocytes # (0.20-1.00) X 10*3/uL Eosinophils # (0.04-0.35) X 10*3/uL POC Glucose (mg/dL) 130 H 190 H (70-110) mg/dL Microbiology - Last 24 Hours (Table) 11/01/22 16:33 Blood Culture - Preliminary Blood No Growth after 24 hours Assessment and Plan Plan: Acute exacerbation of chronic obstructive pulmonary disease, no evidence of pneumonia. The patient has advanced and end-stage COPD and she is currently oxygen dependent. She has had multiple hospitals issue for COPD exacerbation and she has significant limitation performance and functional status due to advanced COPD. She is currently on oxygen at 3 L. the patient was recently hospitalized in September 2022 and she was discharged home on a prednisone burst taper and after completing a prednisone taper, the patient symptoms of COPD exa cerbated and accordingly the patient was hospitalized again. The viral screen was negative. Chest x-ray remains unchanged. The patient is on maximal treatment. She was in the transplantation list in the past. Acute on chronic hypoxemic respiratory failure secondary to above, does have home oxygen at 3 L/m per nasal cannula Acute on chronic hypercapnic respiratory failure secondary to above, on VPAP auto History of a left upper lobe lesion measuring 18 x 13 mm in size. Being followed in the outpatient setting the most recent CAT scan of the chest that was done on 09/18/2022 showed an area of 60 mm groundglass opacity in left upper lobe that would be followed up on outpatient basis. No evidence of any airspace disease or infiltrates. History of CoVID in 19 pneumonia History of chronic lower extremity edema Hypertension Attention deficit hyperactivity disorder Rheumatoid arthritis Chronic back pain Former smoker Plan: We'll continue the same treatment was that Agree on the current treatment and continue the IV Solu-Medrol Continue Perforomist and Pulmicort neb twice a day Continue DuoNeb about treatments 4 times a day VPAP auto EPAP minimum of 5 and a maximum of 15 with a pressure support of 4 In my opinion, she may not be a good candidate for transplantation. Ultimately this will be left up to the team at [facility] where she was listed originally. Continue IV Solu-Medrol for now. Prognosis poor, the patient would benefit from long-term maintenance steroids probably somewhere between 10-15 mg on a daily basis. I
--- NOTE | 2022-11-03 13:30 | P.PN ---
Subjective Progress Note Date: 11/03/22 The patient is a 67-year-old female with a PMH of COPD on 3L home O2 who presents to the emergency room with complaints of gradually worsening shortness of breath. The patient reports her breathing has been worsening over the past 3 days. She denies any cough. She denies any headache, lower extremity edema, nausea vomiting, fever or chills, chest pain, palpitations, changes in urination or bowel habits. No changes in appetite or weight. She denies any dizziness, numbness/weakness/tingling of the extremities. She went to see her PCP today, noted to be dyspnea and saturating in the low 80s on 4 L nasal cannula. She was sent from her PCP clinic. In the ED, she was noted to be 93% on 4 L nasal cannula. She was tachypneic with a respiratory rate of 22. Vital signs are otherwise stable. CBC showed a leukocytosis of 15.5. D-dimer was negative. CMP showed potassium of 5.6, bicarb 39, BUN of 21. Troponin was hurt 0.014. BNP 151. Chest x-ray in the emergency room showed interstitial density mid and lower lungs consider bronchitis, asthma or atypical pneumonias. Patient was seen and examined. No acute events overnight. Patient reports minimal improvement in her breathing. She is currently on 3 L nasal cannula. General: non toxic, mild distress, appears at stated age Derm: warm, dry Head: atraumatic, normocephalic, symmetric Eyes: EOMI, no lid lag, anicteric sclera Mouth: no lip lesion, mucus membranes moist Cardiovascular: Tachycardic, no murmur, positive posterior tibial pulse bilateral, Lungs: Diffuse expiratory wheezing bilateral, no rhonchi, no rales , no accessory muscle use Abdominal: soft, nontender to palpation, no guarding, no appreciable organomegaly Ext: no gross muscle atrophy, no edema, no contractures Neuro: no focal neuro deficits Psych: Alert, oriented, appropriate affect #Acute COPD exacerbation #Acute on chronic hypoxic respiratory failure #Metabolic alkalosis, suspected compensatory secondary to respiratory acidosis #Acute bronchitis VBG shows pH of 7.4, pCO2 of 66 and bicarb of 39 Continue with Solu-Medrol, DuoNeb's. Continue with azithromycin. Supplemental oxygen. Telemetry monitoring. Chronic conditions: Hypertension, ADHD, rheumatoid arthritis Home medications reviewed and restarted. Resolved: Hyperkalemia Objective - Vital Signs Vital signs: Vital Signs Temp 97.5 F L 11/03/22 07:02 Pulse 108 H 11/03/22 11:31 Resp 18 11/03/22 07:02 BP 121/66 11/03/22 07:02 Pulse Ox 96 11/03/22 07:02 FiO2 Intake & Output 11/02/22 11/03/22 11/03/22 18:59 06:59 18:59 Intake Total 480 Balance 480 Intake: Oral 480 Other: Voiding Method Bedside Commode Bedside Commode # Voids 1 4 - Labs CBC & Chem 7: 11/02/22 05:41 11/02/22 05:41 Labs: Abnormal Lab Results - Last 24 Hours (Table) 11/02/22 11/03/22 11/03/22 Range/Units 19:28 06:13 06:18 POC Glucose (mg/dL) 167 H 160 H 130 H (70-110) mg/dL 11/03/22 Range/Units 11:03 POC Glucose (mg/dL) 190 H (70-110) mg/dL Microbiology - Last 24 Hours (Table) 11/01/22 16:33 Blood Culture - Preliminary Blood No Growth after 24 hours
[2022-11-03 16:22] LABS: Glucose,Whole Blood 176 mg/dL (70-110)
[2022-11-03 20:30] LABS: Glucose,Whole Blood 139 mg/dL (70-110)
[2022-11-03] MEDS: rOPINIRole HCL 4 MG TABLET PO SCH (22:00)
[2022-11-03] MEDS ORDERED: SODIUM CHLORIDE 0.65% NASAL SPRAY 44 ML BTL NASAL PRN (22:00)
[2022-11-03] MEDS: MONTELUKAST 10 MG TAB PO SCH (22:00)
[2022-11-03] MEDS: AZITHROMYCIN 500 MG TAB PO SCH (22:00)
[2022-11-03] MEDS: MELATONIN 5 MG TABLET PO PRN (22:00)
[2022-11-04] MEDS: IPRATROPIUM-ALBUTEROL 3 ML NEB INHALATION PRN ×2 (00:28→04:29)
[2022-11-04 05:54] LABS: Glucose,Whole Blood 264 mg/dL (70-110)
[2022-11-04] MEDS: INSULIN ASPART (NovoLOG) 100 UNIT/ML VIAL SQ SCH ×4 (06:27→21:17)
[2022-11-04] MEDS: methylPREDNISolone SOD SUCCI 125 MG/2 ML VIAL IV SCH ×4 (06:27→23:25)
[2022-11-04] MEDS: BUDESONIDE 0.5 MG/2 ML NEBU INHALATION SCH ×2 (08:08→20:39)
[2022-11-04] MEDS: IPRATROPIUM-ALBUTEROL 3 ML NEB INHALATION SCH ×4 (08:08→20:39)
[2022-11-04] MEDS: FORMOTEROL FUMARATE 20 MCG/2 ML NEBU INHALATION SCH ×2 (08:08→20:39)
[2022-11-04] MEDS: LORATADINE 10 MG TAB PO SCH (08:12)
[2022-11-04] MEDS: ENOXAPARIN 40 MG/0.4 ML SYRINGE SQ SCH (08:12)
[2022-11-04] MEDS: DULoxetine HCL 30 MG CAPSULE.DR PO SCH (08:12)
[2022-11-04] MEDS: THEOPHYLLINE 24 HOUR 400 MG CAP.ER.24H PO SCH (08:12)
[2022-11-04] MEDS: VERAPAMIL SR 120 MG TABLET.ER PO SCH (08:12)
[2022-11-04] MEDS: ACETAMINOPHEN TAB 325 MG TAB PO PRN (08:48)
[2022-11-04 11:34] LABS: Glucose,Whole Blood 191 mg/dL (70-110)
--- NOTE | 2022-11-04 12:35 | P.PN ---
Subjective Progress Note Date: 11/04/22 The patient is a 67-year-old female with a PMH of COPD on 3L home O2 who presents to the emergency room with complaints of gradually worsening shortness of breath. The patient reports her breathing has been worsening over the past 3 days. She denies any cough. She denies any headache, lower extremity edema, nausea vomiting, fever or chills, chest pain, palpitations, changes in urination or bowel habits. No changes in appetite or weight. She denies any dizziness, numbness/weakness/tingling of the extremities. She went to see her PCP today, noted to be dyspnea and saturating in the low 80s on 4 L nasal cannula. She was sent from her PCP clinic. In the ED, she was noted to be 93% on 4 L nasal cannula. She was tachypneic with a respiratory rate of 22. Vital signs are otherwise stable. CBC showed a leukocytosis of 15.5. D-dimer was negative. CMP showed potassium of 5.6, bicarb 39, BUN of 21. Troponin was hurt 0.014. BNP 151. Chest x-ray in the emergency room showed interstitial density mid and lower lungs consider bronchitis, asthma or atypical pneumonias. Patient was seen and examined. No acute events overnight. Patient reports minimal improvement in her breathing. She is currently on 3 L nasal cannula. Patient continues to feel immensely short of breath with exertion. General: non toxic, mild distress, appears at stated age Derm: warm, dry Head: atraumatic, normocephalic, symmetric Eyes: EOMI, no lid lag, anicteric sclera Mouth: no lip lesion, mucus membranes moist Cardiovascular: Tachycardic, no murmur, positive posterior tibial pulse bilateral, Lungs: Scattered wheezing bilateral, no rhonchi, no rales , no accessory muscle use Abdominal: soft, nontender to palpation, no guarding, no appreciable organomegaly Ext: no gross muscle atrophy, no edema, no contractures Neuro: no focal neuro deficits Psych: Alert, oriented, appropriate affect #Acute COPD exacerbation #Acute on chronic hypoxic respiratory failure #Metabolic alkalosis, suspected compensatory secondary to respiratory acidosis #Acute bronchitis VBG shows pH of 7.4, pCO2 of 66 and bicarb of 39 Continue with Solu-Medrol, DuoNeb's. Continue with azithromycin. Supplemental oxygen. Telemetry monitoring. #Hyperglycemia [id number] glucose 191 A1c 5.02 January 2022 Likely steroid-induced Currently on low-dose sliding scale Accu-Cheks before meals at bedtime Chronic conditions: Hypertension, ADHD, rheumatoid arthritis Home medications reviewed and restarted. Resolved: Hyperkalemia Objective - Vital Signs Vital signs: Vital Signs Temp 97.8 F 11/04/22 06:45 Pulse 102 H 11/04/22 11:46 Resp 20 11/04/22 06:45 BP 145/63 11/04/22 06:45 Pulse Ox 95 11/04/22 08:11 FiO2 Intake & Output 11/03/22 11/04/22 11/04/22 18:59 06:59 18:59 Output Total 300 Balance -300 Output: Urine 300 Other: # Voids 2 5 - Labs CBC & Chem 7: 11/02/22 05:41 11/02/22 05:41 Labs: Abnormal Lab Results - Last 24 Hours (Table) 11/03/22 11/03/22 11/04/22 Range/Units 16:20 20:28 05:51 POC Glucose (mg/dL) 176 H 139 H 264 H (70-110) mg/dL 11/04/22 Range/Units 11:32 POC Glucose (mg/dL) 191 H (70-110) mg/dL Microbiology - Last 24 Hours (Table) 11/01/22 16:33 Blood Culture - Preliminary Blood No Growth after 48 hours
--- NOTE | 2022-11-04 12:46 | P.PN ---
Subjective Progress Note Date: 11/04/22 On 11/03/2022, the patient is still struggling with her breathing. She was hospitalized yesterday for another COPD exacerbation. She is known to have advanced COPD. She is currently on the management for COPD exacerbation. No new complaints otherwise for now. No signs of any CO2 narcosis. No angina. No palpitations. She remains on DuoNeb nebulized treatments [id number], IV Solu-Medrol, Perforomist and Pulmicort neb treatments twice a day and theophylline. 11/04/2022, the patient is still doing poorly. She shortness of breath even at rest. She is using a oxygen and overnight VPAP auto that she has. She remains on the same bronchodilator steroids regimen. She remains on oxygen at 4 L nasal cannula. No new complaints otherwise for now. No signs of any CO2 narcosis. No chest pain. She is quite short of breath even at rest. She is also having on and off coughing spells. No significant sputum production. Objective - Vital Signs Vital signs: Vital Signs Temp 97.8 F 11/04/22 06:45 Pulse 102 H 11/04/22 11:46 Resp 20 11/04/22 06:45 BP 145/63 11/04/22 06:45 Pulse Ox 95 11/04/22 08:11 FiO2 Intake & Output 11/03/22 11/04/22 11/04/22 18:59 06:59 18:59 Output Total 300 Balance -300 Output: Urine 300 Other: # Voids 2 5 - Exam GENERAL EXAM: Alert, 67-year-old female, on 4 L nasal cannula, fairly comfortable in no apparent distress. 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 EYES: Normal reaction of pupils, equal size. NOSE: Clear with pink turbinates. THROAT: No erythema or exudates. NECK: No masses, no JVD. CHEST: No chest wall deformity. LUNGS: Equal air entry with bilateral end expiratory wheeze, diminished. CVS: S1 and S2 normal with no audible murmur, regular rhythm. ABDOMEN: No hepatosplenomegaly, normal bowel sounds, no guarding or rigidity. SPINE: No scoliosis or deformity SKIN: No rashes CENTRAL NERVOUS SYSTEM: No focal deficits, tone is normal in all 4 extremities. EXTREMITIES: There is no peripheral edema. No clubbing, no cyanosis. Peripheral pulses are intact. - Labs CBC & Chem 7: 11/02/22 05:41 11/02/22 05:41 Labs: Abnormal Lab Results - Last 24 Hours (Table) 11/03/22 11/03/22 11/04/22 Range/Units 16:20 20:28 05:51 POC Glucose (mg/dL) 176 H 139 H 264 H (70-110) mg/dL 11/04/22 Range/Units 11:32 POC Glucose (mg/dL) 191 H (70-110) mg/dL Microbiology - Last 24 Hours (Table) 11/01/22 16:33 Blood Culture - Preliminary Blood No Growth after 48 hours Assessment and Plan Plan: Acute exacerbation of chronic obstructive pulmonary disease, no evidence of pneumonia. The patient has advanced and end-stage COPD and she is currently oxygen dependent. She has had multiple hospitals issue for COPD exacerbation and she has significant limitation performance and functional status due to advanced COPD. She is currently on oxygen at 4 L. the patient was recently hospitalized in September 2022 and she was discharged home on a prednisone burst taper and after completing a prednisone taper, the patient symptoms of COPD exacerbated and accordingly the patient was hospitalized again. The viral screen was negative. Chest x-ray remains unchanged. The patient is on maximal treatment. She was in the transplantation list in the past. Very slow and limited and the patient is still having shortness of breath even at rest. Acute on chronic hypoxemic respiratory failure secondary to above, does have home oxygen at 3 L/m per nasal cannula, currently on 4 L Acute on chronic hypercapnic respiratory failure secondary to above, on VPAP auto History of a left upper lobe lesion measuring 18 x 13 mm in size. Being followed in the outpatient setting the most recent CAT scan of the chest that was done on 09/18/2022 showed an area of 60 mm groundglass opacity in left upper lobe that would be followed up on outpatient basis. No evidence of any airspace disease or infiltrates. History of CoVID in 19 pneumonia History of chronic lower extremity edema Hypertension Attention deficit hyperactivity disorder Rheumatoid arthritis Chronic back pain Former smoker Plan: Chronic advanced and end-stage COPD We'll continue the same treatment was that Agree on the current treatment and continue the IV Solu-Medrol Continue Perforomist and Pulmicort neb twice a day Continue DuoNeb about treatments 4 times a day VPAP auto EPAP minimum of 5 and a maximum of 15 with a pressure support of 4 We will add Xanax 0.5 mg every 8 hours when necessary basis to help with dyspnea and used anxiety. In my opinion, she may not be a good candidate for transplantation. Ultimately this will be left up to the team at [facility] where she was listed originally. Prognosis poor, the patient would benefit from long-term maintenance steroids probably somewhere between 10-15 mg on a daily basis. I
[2022-11-04 16:19] LABS: Glucose,Whole Blood 139 mg/dL (70-110)
[2022-11-04] MEDS ORDERED: BENZOCAINE/MENTHOL LOZENG 1 EACH LOZENGE MUCOUS MEM PRN (16:39)
[2022-11-04 20:17] LABS: Glucose,Whole Blood 217 mg/dL (70-110)
[2022-11-04] MEDS: rOPINIRole HCL 4 MG TABLET PO SCH (21:17)
[2022-11-04] MEDS: MONTELUKAST 10 MG TAB PO SCH (21:17)
[2022-11-05] MEDS: IPRATROPIUM-ALBUTEROL 3 ML NEB INHALATION PRN ×2 (00:11→04:22)
[2022-11-05] MEDS: ALPRAZolam 0.5 MG TAB PO PRN ×2 (03:15→23:21)
[2022-11-05 06:13] LABS: Glucose,Whole Blood 159 mg/dL (70-110)
[2022-11-05] MEDS: methylPREDNISolone SOD SUCCI 125 MG/2 ML VIAL IV SCH ×4 (07:03→23:21)
[2022-11-05] MEDS: INSULIN ASPART (NovoLOG) 100 UNIT/ML VIAL SQ SCH ×4 (07:03→21:39)
[2022-11-05] MEDS: LORATADINE 10 MG TAB PO SCH (07:32)
[2022-11-05] MEDS: VERAPAMIL SR 120 MG TABLET.ER PO SCH (07:32)
[2022-11-05] MEDS: ENOXAPARIN 40 MG/0.4 ML SYRINGE SQ SCH (07:32)
[2022-11-05] MEDS: DULoxetine HCL 30 MG CAPSULE.DR PO SCH (07:32)
[2022-11-05] MEDS: THEOPHYLLINE 24 HOUR 400 MG CAP.ER.24H PO SCH (07:32)
[2022-11-05] MEDS: IPRATROPIUM-ALBUTEROL 3 ML NEB INHALATION SCH ×4 (09:07→21:43)
[2022-11-05] MEDS: FORMOTEROL FUMARATE 20 MCG/2 ML NEBU INHALATION SCH ×2 (09:07→21:43)
[2022-11-05] MEDS: BUDESONIDE 0.5 MG/2 ML NEBU INHALATION SCH ×2 (09:07→21:44)
[2022-11-05 10:21] LABS: African American GFR (CKD) 104.8 (60.0-200.0); Anion Gap 4.6 mmol/L (10.00-18.00); BUN/Creat Ratio 37.06 Ratio (12.00-20.00); Blood Urea Nitrogen 24.2 mg/dL (9.0-27.0); Calcium 8.7 mg/dL (8.7-10.3); Carbon Dioxide 40.2 mmol/L (20.0-27.5); Non-African American GFR(CKD) 90.5 (60.0-200.0); Potassium 4.9 mmol/L (3.5-5.5)
[2022-11-05 10:35] LABS: HCT 36.3 % (37.2-46.3); HGB 10.5 g/dL (12.0-15.0); MCH 30.8 pg (27.0-32.0); MCHC 28.9 g/dL (32.0-37.0); MCV 106.5 fL (80.0-97.0); Mean Platelet Volume 11.5 fL (9.5-12.2); NRBC Per 100 WBC 0 /100 WBCS (0.0-0.0); Platelet Count 219 X 10*3/uL (140-440); RBC 3.41 X 10*6/uL (4.10-5.20); RDW 16.2 % (11.5-14.5); WBC 13.46 X 10*3/uL (4.50-10.00)
--- NOTE | 2022-11-05 10:39 | P.PN ---
Subjective Progress Note Date: 11/05/22 On 11/03/2022, the patient is still struggling with her breathing. She was hospitalized yesterday for another COPD exacerbation. She is known to have advanced COPD. She is currently on the management for COPD exacerbation. No new complaints otherwise for now. No signs of any CO2 narcosis. No angina. No palpitations. She remains on DuoNeb nebulized treatments [id number], IV Solu-Medrol, Perforomist and Pulmicort neb treatments twice a day and theophylline. 11/04/2022, the patient is still doing poorly. She shortness of breath even at rest. She is using a oxygen and overnight VPAP auto that she has. She remains on the same bronchodilator steroids regimen. She remains on oxygen at 4 L nasal cannula. No new complaints otherwise for now. No signs of any CO2 narcosis. No chest pain. She is quite short of breath even at rest. She is also having on and off coughing spells. No significant sputum production. 11/05/2022 the patient is still doing poor without any major intermittent improvement compared to yesterday. While at rest, she seems to be comfortably and she gets worked up on the limited amount of activity. No signs of any CO2 narcosis. Remains on the same treatment which includes a combination of DuoNeb about treatments [id number], Perforomist and Pulmicort neb blotchiness twice a day, IV Solu-Medrol and theophylline. Tolerating diet.Blood work from today shows a white cell count of 15.4 with a hemoglobin of 10.5 and a platelet count of 219. Sodiums of 142. Bicarb is at 40 with a BUN of 24 and a creatinine of 0.7. The patient is taking Xanax for anxiety. The patient had a panic attack while she was on BiPAP and she was taken off the BiPAP and currently she is on 4 L O2 nasal cannula. Objective - Vital Signs Vital signs: Vital Signs Temp 97.4 F L 11/05/22 07:05 Pulse 110 H 11/05/22 09:28 Resp 22 11/05/22 07:05 BP 165/69 11/05/22 07:05 Pulse Ox 94 L 11/05/22 07:05 FiO2 35 11/05/22 00:12 Intake & Output 11/04/22 11/05/22 11/05/22 18:59 06:59 18:59 Output Total 300 Balance -300 Output: Urine 300 Other: Voiding Method Bedside Commode # Voids 3 - Exam GENERAL EXAM: Alert, 67-year-old female, on 4 L nasal cannula, fairly comfortable in no apparent distress. 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 EYES: Normal reaction of pupils, equal size. NOSE: Clear with pink turbinates. THROAT: No erythema or exudates. NECK: No masses, no JVD. CHEST: No chest wall deformity. LUNGS: Equal air entry with bilateral end expiratory wheeze, diminished. CVS: S1 and S2 normal with no audible murmur, regular rhythm. ABDOMEN: No hepatosplenomegaly, normal bowel sounds, no guarding or rigidity. SPINE: No scoliosis or deformity SKIN: No rashes CENTRAL NERVOUS SYSTEM: No focal deficits, tone is normal in all 4 extremities. EXTREMITIES: There is no peripheral edema. No clubbing, no cyanosis. Peripheral pulses are intact. - Labs CBC & Chem 7: 11/05/22 04:00 11/05/22 04:00 Labs: Abnormal Lab Results - Last 24 Hours (Table) 11/04/22 11/04/22 11/04/22 Range/Units 11:32 16:18 20:13 WBC (4.50-10.00) X 10*3/uL RBC (4.10-5.20) X 10*6/uL Hgb (12.0-15.0) g/dL Hct (37.2-46.3) % MCV (80.0-97.0) fL MCHC (32.0-37.0) g/dL RDW (11.5-14.5) % Carbon Dioxide (20.0-27.5) mmol/L Anion Gap (10.00-18.00) mmol/L BUN/Creatinine Ratio (12.00-20.00) Ratio Glucose (70-110) mg/dL POC Glucose (mg/dL) 191 H 139 H 217 H (70-110) mg/dL 11/05/22 11/05/22 11/05/22 Range/Units 04:00 04:00 06:11 WBC 13.46 H (4.50-10.00) X 10*3/uL RBC 3.41 L (4.10-5.20) X 10*6/uL Hgb 10.5 L (12.0-15.0) g/dL Hct 36.3 L (37.2-46.3) % MCV 106.5 H (80.0-97.0) fL MCHC 28.9 L (32.0-37.0) g/dL RDW 16.2 H (11.5-14.5) % Carbon Dioxide 40.2 H* (20.0-27.5) mmol/L Anion Gap 4.60 L (10.00-18.00) mmol/L BUN/Creatinine Ratio 37.06 H (12.00-20.00) Ratio Glucose 166 H (70-110) mg/dL POC Glucose (mg/dL) 159 H (70-110) mg/dL Microbiology - Last 24 Hours (Table) 11/01/22 16:33 Blood Culture - Preliminary Blood No Growth after 72 hours Assessment and Plan Plan: Acute exacerbation of chronic obstructive pulmonary disease, no evidence of pneumonia. The patient has advanced and end-stage COPD and she is currently oxygen dependent. She has had multiple hospitals issue for COPD exacerbation and she has significant limitation performance and functional status due to advanced COPD. She is currently on oxygen at 4 L. the patient was recently hospitalized in September 2022 and she was discharged home on a prednisone burst taper and after completing a prednisone taper, the patient symptoms of COPD exacerbated and accordingly the patient was hospitalized again. The viral screen was negative. Chest x-ray remains unchanged. The patient is on maximal treatment. She was in the transplantation list in the past. Very slow and limited and the patient is still having shortness of breath even at rest. Acute on chronic hypoxemic respiratory failure secondary to above, does have home oxygen at 3 L/m per nasal cannula, currently on 4 L Acute on chronic hypercapnic respiratory failure secondary to above, on VPAP auto History of a left upper lobe lesion measuring 18 x 13 mm in size. Being followed in the outpatient setting the most recent CAT scan of the chest that was done on 09/18/2022 showed an area of 60 mm groundglass opacity in left upper lobe that would be followed up on outpatient basis. No evidence of any airspace disease or infiltrates. History of CoVID in 19 pneumonia History of chronic lower extremity edema Hypertension Attention deficit hyperactivity disorder Rheumatoid arthritis Chronic back pain Former smoker Plan: Carries a very poor prognosis Recurrent hospitalization due to advanced lung disease, end-stage COPD Continue same treatment Agree on the current treatment and continue the IV Solu-Medrol Continue Perforomist and Pulmicort neb twice a day Continue DuoNeb about treatments 4 times a day VPAP auto EPAP minimum of 5 and a maximum of 15 with a pressure support of 4 We will add Xanax 0.5 mg every 8 hours when necessary basis to help with dyspnea and used anxiety. In my opinion, she may not be a good candidate for transplantation. Ultimately this will be left up to the team at [facility] where she was listed originally. Prognosis poor, the patient would benefit from long-term maintenance steroids p robably somewhere between 10-15 mg on a daily basis. I
[2022-11-05 11:11] LABS: Glucose,Whole Blood 200 mg/dL (70-110)
--- NOTE | 2022-11-05 12:40 | P.PN ---
Subjective Progress Note Date: 11/05/22 The patient is a 67-year-old female with a PMH of COPD on 3L home O2 who presents to the emergency room with complaints of gradually worsening shortness of breath. The patient reports her breathing has been worsening over the past 3 days. She denies any cough. She denies any headache, lower extremity edema, nausea vomiting, fever or chills, chest pain, palpitations, changes in urination or bowel habits. No changes in appetite or weight. She denies any dizziness, numbness/weakness/tingling of the extremities. She went to see her PCP today, noted to be dyspnea and saturating in the low 80s on 4 L nasal cannula. She was sent from her PCP clinic. In the ED, she was noted to be 93% on 4 L nasal cannula. She was tachypneic with a respiratory rate of 22. Vital signs are otherwise stable. CBC showed a leukocytosis of 15.5. D-dimer was negative. CMP showed potassium of 5.6, bicarb 39, BUN of 21. Troponin was hurt 0.014. BNP 151. Chest x-ray in the emergency room showed interstitial density mid and lower lungs consider bronchitis, asthma or atypical pneumonias. Patient was seen and examined. No acute events overnight. Patient reports no real improvement since admission. She is currently on 4 L nasal cannula. Patient continues to feel immensely short of breath with exertion. General: non toxic, mild distress, appears at stated age Derm: warm, dry Head: atraumatic, normocephalic, symmetric Eyes: EOMI, no lid lag, anicteric sclera Mouth: no lip lesion, mucus membranes moist Cardiovascular: Tachycardic, no murmur, positive posterior tibial pulse bilateral, Lungs: Scattered wheezing bilateral, no rhonchi, no rales , no accessory muscle use Abdominal: soft, nontender to palpation, no guarding, no appreciable organomegaly Ext: no gross muscle atrophy, no edema, no contractures Neuro: no focal neuro deficits Psych: Alert, oriented, appropriate affect #Acute COPD exacerbation #Acute on chronic hypoxic respiratory failure #Metabolic alkalosis, suspected compensatory secondary to respiratory acidosis #Acute bronchitis VBG shows pH of 7.4, pCO2 of 66 and bicarb of 39 Continue with Solu-Medrol, DuoNeb's. Completed 3 day course of azithromycin Supplemental oxygen Telemetry monitoring Continue BiPAP while sleeping #Hyperglycemia [id number] glucose 200 A1c 5.02 January 2022 Likely steroid-induced Currently on low-dose sliding scale Accu-Cheks before meals at bedtime Chronic conditions: Hypertension, ADHD, rheumatoid arthritis Home medications reviewed and restarted. Resolved: Hyperkalemia Patient is pending clinical improvement. Objective - Vital Signs Vital signs: Vital Signs Temp 97.4 F L 11/05/22 07:05 Pulse 110 H 11/05/22 09:28 Resp 22 11/05/22 07:05 BP 165/69 11/05/22 07:05 Pulse Ox 94 L 11/05/22 07:05 FiO2 35 11/05/22 00:12 Intake & Output 11/04/22 11/05/22 11/05/22 18:59 06:59 18:59 Output Total 300 Balance -300 Output: Urine 300 Other: Voiding Method Bedside Commode # Voids 3 - Labs CBC & Chem 7: 11/05/22 04:00 11/05/22 04:00 Labs: Abnormal Lab Results - Last 24 Hours (Table) 11/04/22 11/04/22 11/05/22 Range/Units 16:18 20:13 04:00 WBC 13.46 H (4.50-10.00) X 10*3/uL RBC 3.41 L (4.10-5.20) X 10*6/uL Hgb 10.5 L (12.0-15.0) g/dL Hct 36.3 L (37.2-46.3) % MCV 106.5 H (80.0-97.0) fL MCHC 28.9 L (32.0-37.0) g/dL RDW 16.2 H (11.5-14.5) % Carbon Dioxide (20.0-27.5) mmol/L Anion Gap (10.00-18.00) mmol/L BUN/Creatinine Ratio (12.00-20.00) Ratio Glucose (70-110) mg/dL POC Glucose (mg/dL) 139 H 217 H (70-110) mg/dL 11/05/22 11/05/22 11/05/22 Range/Units 04:00 06:11 11:09 WBC (4.50-10.00) X 10*3/uL RBC (4.10-5.20) X 10*6/uL Hgb (12.0-15.0) g/dL Hct (37.2-46.3) % MCV (80.0-97.0) fL MCHC (32.0-37.0) g/dL RDW (11.5-14.5) % Carbon Dioxide 40.2 H* (20.0-27.5) mmol/L Anion Gap 4.60 L (10.00-18.00) mmol/L BUN/Creatinine Ratio 37.06 H (12.00-20.00) Ratio Glucose 166 H (70-110) mg/dL POC Glucose (mg/dL) 159 H 200 H (70-110) mg/dL Microbiology - Last 24 Hours (Table) 11/01/22 16:33 Blood Culture - Preliminary Blood No Growth after 72 hours
[2022-11-05 16:36] LABS: Glucose,Whole Blood 209 mg/dL (70-110)
[2022-11-05 20:14] LABS: Glucose,Whole Blood 182 mg/dL (70-110)
[2022-11-05] MEDS: MONTELUKAST 10 MG TAB PO SCH (21:39)
[2022-11-05] MEDS: rOPINIRole HCL 4 MG TABLET PO SCH (21:39)
[2022-11-05] MEDS: MELATONIN 5 MG TABLET PO PRN (23:21)
[2022-11-06] MEDS: methylPREDNISolone SOD SUCCI 125 MG/2 ML VIAL IV SCH ×3 (05:09→17:27)
[2022-11-06 05:52] LABS: Glucose,Whole Blood 188 mg/dL (70-110)
[2022-11-06] MEDS: INSULIN ASPART (NovoLOG) 100 UNIT/ML VIAL SQ SCH ×4 (06:38→20:54)
[2022-11-06] MEDS: FORMOTEROL FUMARATE 20 MCG/2 ML NEBU INHALATION SCH ×2 (08:12→21:55)
[2022-11-06] MEDS: BUDESONIDE 0.5 MG/2 ML NEBU INHALATION SCH ×2 (08:12→21:55)
[2022-11-06] MEDS: IPRATROPIUM-ALBUTEROL 3 ML NEB INHALATION SCH ×4 (08:12→21:55)
[2022-11-06] MEDS: ALPRAZolam 0.5 MG TAB PO PRN (09:47)
[2022-11-06] MEDS: VERAPAMIL SR 120 MG TABLET.ER PO SCH (09:47)
[2022-11-06] MEDS: LORATADINE 10 MG TAB PO SCH (09:47)
[2022-11-06] MEDS: ENOXAPARIN 40 MG/0.4 ML SYRINGE SQ SCH (09:47)
[2022-11-06] MEDS: THEOPHYLLINE 24 HOUR 400 MG CAP.ER.24H PO SCH (09:47)
[2022-11-06] MEDS: DULoxetine HCL 30 MG CAPSULE.DR PO SCH (09:47)
[2022-11-06 11:50] LABS: Glucose,Whole Blood 255 mg/dL (70-110)
--- NOTE | 2022-11-06 13:43 | P.PN ---
Subjective Progress Note Date: 11/06/22 On 11/03/2022, the patient is still struggling with her breathing. She was hospitalized yesterday for another COPD exacerbation. She is known to have advanced COPD. She is currently on the management for COPD exacerbation. No new complaints otherwise for now. No signs of any CO2 narcosis. No angina. No palpitations. She remains on DuoNeb nebulized treatments [id number], IV Solu-Medrol, Perforomist and Pulmicort neb treatments twice a day and theophylline. 11/04/2022, the patient is still doing poorly. She shortness of breath even at rest. She is using a oxygen and overnight VPAP auto that she has. She remains on the same bronchodilator steroids regimen. She remains on oxygen at 4 L nasal cannula. No new complaints otherwise for now. No signs of any CO2 narcosis. No chest pain. She is quite short of breath even at rest. She is also having on and off coughing spells. No significant sputum production. 11/05/2022 the patient is still doing poor without any major intermittent improvement compared to yesterday. While at rest, she seems to be comfortably and she gets worked up on the limited amount of activity. No signs of any CO2 narcosis. Remains on the same treatment which includes a combination of DuoNeb about treatments [id number], Perforomist and Pulmicort neb blotchiness twice a day, IV Solu-Medrol and theophylline. Tolerating diet.Blood work from today shows a white cell count of 15.4 with a hemoglobin of 10.5 and a platelet count of 219. Sodiums of 142. Bicarb is at 40 with a BUN of 24 and a creatinine of 0.7. The patient is taking Xanax for anxiety. The patient had a panic attack while she was on BiPAP and she was taken off the BiPAP and currently she is on 4 L O2 nasal cannula. The patient is seen today 11/06/2022 in follow-up on the regular medical floor. She is currently resting comfortably in bed. Awake and alert in no acute distress. She is still somewhat dyspneic with conversation. Dyspneic with minimal exertion. She is maintaining O2 saturations in the 90s on 4 L/m per nasal cannula. Blood cultures reveal no growth. Blood sugar 188. She is continued on DuoNeb inhalations, Pulmicort and Perforomist inhalations, IV Solu- Medrol, theophylline, Singulair. Objective - Vital Signs Vital signs: Vital Signs Temp 98.1 F 11/06/22 07:00 Pulse 110 H 11/06/22 11:53 Resp 20 11/06/22 08:00 BP 163/73 11/06/22 07:00 Pulse Ox 95 11/06/22 08:15 FiO2 35 11/05/22 00:12 Intake & Output 11/05/22 11/06/22 11/06/22 18:59 06:59 18:59 Output Total 300 Balance -300 Output: Urine 300 Other: Voiding Method Bedside Commode # Voids 4 # Bowel Movements 1 - Exam GENERAL EXAM: Alert, very pleasant 67-year-old female, on 4 L nasal cannula, fairly comfortable in no apparent distress. 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 EYES: Normal reaction of pupils, equal size. NOSE: Clear with pink turbinates. THROAT: No erythema or exudates. NECK: No masses, no JVD. CHEST: No chest wall deformity. LUNGS: Equal air entry with bilateral end expiratory wheeze, diminished. CVS: S1 and S2 normal with no audible murmur, regular rhythm. ABDOMEN: No hepatosplenomegaly, normal bowel sounds, no guarding or rigidity. SPINE: No scoliosis or deformity SKIN: No rashes CENTRAL NERVOUS SYSTEM: No focal deficits, tone is normal in all 4 extremities. EXTREMITIES: There is no peripheral edema. No clubbing, no cyanosis. Peripheral pulses are intact. - Labs CBC & Chem 7: 11/05/22 04:00 11/05/22 04:00 Labs: Abnormal Lab Results - Last 24 Hours (Table) 11/05/22 11/05/22 11/06/22 Range/Units 16:34 20:10 05:51 POC Glucose (mg/dL) 209 H 182 H 188 H (70-110) mg/dL 11/06/22 Range/Units 11:49 POC Glucose (mg/dL) 255 H (70-110) mg/dL Microbiology - Last 24 Hours (Table) 11/01/22 16:33 Blood Culture - Preliminary Blood No Growth after 96 hours Assessment and Plan Assessment: Acute exacerbation of chronic obstructive pulmonary disease, no evidence of pneumonia. The patient has advanced and end-stage COPD and she is currently oxygen dependent. She has had multiple hospitals issue for COPD exacerbation and she has significant limitation performance and functional status due to advanced COPD. She is currently on oxygen at 4 L. the patient was recently hospitalized in September 2022 and she was discharged home on a prednisone burst taper and after completing a prednisone taper, the patient symptoms of COPD exacerbated and accordingly the patient was hospitalized again. The viral screen was negative. Chest x-ray remains unchanged. The patient is on maximal treatment. She was in the transplantation list in the past. Very slow and limited and the patient is still having shortness of breath even at rest. Acute on chronic hypoxemic respiratory failure secondary to above, does have home oxygen at 3 L/m per nasal cannula, currently on 4 L Acute on chronic hypercapnic respiratory failure secondary to above, on VPAP auto History of a left upper lobe lesion measuring 18 x 13 mm in size. Being followed in the outpatient setting the most recent CAT scan of the chest that was done on 09/18/2022 showed an area of 60 mm groundglass opacity in left upper lobe that would be followed up on outpatient basis. No evidence of any airspace disease or infiltrates. History of CoVID in 19 pneumonia History of chronic lower extremity edema Hypertension Attention deficit hyperactivity disorder Rheumatoid arthritis Chronic back pain Former smoker Plan: The patient was seen and evaluated Labs and medications reviewed Not quite ready for discharge Continue oxygen at 4 L/m per nasal cannula Titrate the FiO2 as tolerated Continue current treatment plan We'll continue to follow I have personally seen and examined the patient, performed the documentation and the assessment and plan as written. Number of minutes spent on the visit: 10.
--- NOTE | 2022-11-06 16:07 | P.PN ---
Subjective Progress Note Date: 11/06/22 Patient is a 67-year-old female with COPD on 3L home O2 previsouly on lung transplant list, HTN, rheumatolid arthritis, and ADHD who presents to the emergency room with complaints of gradually worsening shortness of breath. She was sent in from her PCP clinic due to low O2 satIn the ER she underwent an extensive evaluation. She was found to be 90% on 4 L nasal cannula with tachypnea She was tachypneic with a respiratory rate of 22. CBC showed a leukocytosis of 15.5. D-dimer was negative. CMP showed potassium of 5.6, bicarb 39, BUN of 21. Troponin was hurt 0.014. BNP 151. Chest x-ray in the emergency room showed interstitial density mid and lower lungs consider bronchitis, asthma or atypical pneumonias. Is admitted for acute exacerbation of COPD. Pulmonary was consulted. She was started on Solu-Medrol, DuoNeb's, and a 3 day course of Zithromax. Patient seen and examined at bedside. She continues to complain of dyspnea with even minimal exertion. She states her breathing is near baseline at rest. I attempted to discuss with her her poor overall prognosis secondary to advanced COPD with recurrent hospitalization for continued worsening over the last several years, patient is not at a point where she wants to discuss this issue continues to believe she will get a lung transplant. General: nontoxic, no distress, appears older than stated age Derm: warm, dry, multiple areas of ecchymosis Head: atraumatic, normocephalic, symmetric Eyes: EOMI, no lid lag, anicteric sclera Mouth: no lip lesion, mucus membranes moist Cardiovascular: S1S2 reg, no murmur, positive posterior tibial pulse bilateral, Lungs: Diffuse wheezing bilaterally with decreased breath sounds bilateral bases , no accessory muscle use Abdominal: soft, nontender to palpation, no guarding, no appreciable organomegaly Ext: no gross muscle atrophy, no edema, no contractures Neuro: CN II-XI grossly intact, no focal neuro deficits Psych: Alert, oriented, appropriate affect Assessment/Plan: Acute COPD exacerbation Acute on chronic hypoxic respiratory failure Metabolic alkalosis, suspected compensatory secondary to respiratory acidosis Acute bronchitis - s/p zithromax - Continue with Solu-Medrol, DuoNeb's. - Completed 3 day course of azithromycin - Supplemental oxygen - BiPap while sleeping Hyperglycemia -Blood sugars reviewed-last 24 hours is 255 - A1c 5.02 January 2022, will repeat - Likely steroid-induced - Currently on low-dose sliding scale - Accu-Cheks before meals at bedtime Chronic conditions: Hypertension, ADHD, rheumatoid arthritis Resolved: Hyperkalemia DVT prophylaxis: start heparin Discussed with: patient, nursing Anticipated discharge: pending clinical course Anticipated discharge place: home A total of 35 minutes was spent on the care of this complex patient more than 50% of the time was spent in counseling and care coordination. Active Medications Generic Name Dose Route Start Last Admin Trade Name Freq PRN Reason Stop Dose Admin Acetaminophen 650 mg 11/01/22 19:18 11/04/22 08:48 Acetaminophen Tab 325 Mg Tab PO 650 mg Q6HR PRN Administration Mild Pain or Fever > 100.5 Albuterol/Ipratropium 3 ml 11/01/22 20:00 11/06/22 15:34 Ipratropium-Albuterol 3 Ml Neb INHALATION 3 ml RT-QID LATESHA Administration Albuterol/Ipratropium 3 ml 11/01/22 21:46 11/05/22 04:22 Ipratropium-Albuterol 3 Ml Neb INHALATION 3 ml RT-Q2H PRN Administration Shortness Of Breath Or Wheezing Alprazolam 0.5 mg 11/02/22 18:26 11/06/22 09:47 Alprazolam 0.5 Mg Tab PO 0.5 mg QID PRN Administration Anxiety Benzocaine/Menthol 1 each 11/04/22 16:39 Benzocaine/Menthol Lozeng 1 Each Lozenge MUCOUS MEM Q4HR PRN pain Budesonide 0.5 mg 11/01/22 20:00 11/06/22 08:12 Budesonide 0.5 Mg/2 Ml Nebu INHALATION 0.5 mg RT-BID LATESHA Administration Duloxetine HCl 30 mg 11/02/22 09:00 11/06/22 09:47 Duloxetine Hcl 30 Mg Capsule.Dr PO 30 mg DAILY LATESHA Administration Enoxaparin Sodium 40 mg 11/02/22 09:00 11/06/22 09:47 Enoxaparin 40 Mg/0.4 Ml Syringe SQ 40 mg DAILY LATESHA Administration Formoterol Fumarate 20 mcg 11/01/22 20:00 11/06/22 08:12 Formoterol Fumarate 20 Mcg/2 Ml Nebu INHALATION 20 mcg RT-BID LATESHA Administration Insulin Aspart 0 unit 11/02/22 21:00 11/06/22 12:33 Insulin Aspart (Novolog) 100 Unit/Ml Vial SQ 6 unit ACHS LATESHA Administration Protocol Loratadine 10 mg 11/02/22 09:00 11/06/22 09:47 Loratadine 10 Mg Tab PO 10 mg DAILY LATESHA Administration Melatonin 5 mg 11/01/22 21:22 11/05/22 23:21 Melatonin 5 Mg Tablet PO 5 mg HS PRN Administration Insomnia Methylprednisolone Sodium Succinate 60 mg 11/02/22 00:00 11/06/22 12:33 Methylprednisolone Sod Succi 125 Mg/2 Ml Vial IV 60 mg Q6HR LATESHA Administration Montelukast Sodium 10 mg 11/01/22 21:00 11/05/22 21:39 Montelukast 10 Mg Tab PO 10 mg HS LATESHA Administration Naloxone HCl 0.2 mg 11/01/22 19:18 Naloxone 0.4 Mg/Ml 1 Ml Vial IV Q2M PRN Opioid Reversal Ropinirole HCl 4 mg 11/01/22 21:00 11/05/22 21:39 Ropinirole Hcl 4 Mg Tablet PO 4 mg HS LATESHA Administration Sodium Chloride 2 spray 11/03/22 22:00 Sodium Chloride 0.65% Nasal [place] 44 Ml Btl NASAL QID PRN Dry Nasal Passages Theophylline 400 mg 11/02/22 09:00 11/06/22 09:47 Theophylline 24 Hour 400 Mg Cap.Er.24h PO 400 mg DAILY LATESHA Administration Verapamil HCl 120 mg 11/02/22 09:00 11/06/22 09:47 Verapamil Sr 120 Mg Tablet.Er PO 120 mg DAILY LATESHA Administration Objective - Vital Signs Vital signs: Vital Signs Temp 98.7 F 11/06/22 14:06 Pulse 112 H 11/06/22 15:46 Resp 22 11/06/22 14:06 BP 146/67 11/06/22 14:06 Pulse Ox 94 L 11/06/22 14:06 FiO2 35 11/05/22 00:12 Intake & Output 11/05/22 11/06/22 11/06/22 18:59 06:59 18:59 Output Total 300 Balance -300 Output: Urine 300 Other: Voiding Method Bedside Commode # Voids 4 # Bowel Movements 1 - Labs CBC & Chem 7: 11/05/22 04:00 11/05/22 04:00 Labs: Abnormal Lab Results - Last 24 Hours (Table) 11/05/22 11/05/22 11/06/22 Range/Units 16:34 20:10 05:51 POC Glucose (mg/dL) 209 H 182 H 188 H (70-110) mg/dL 11/06/22 Range/Units 11:49 POC Glucose (mg/dL) 255 H (70-110) mg/dL Microbiology - Last 24 Hours (Table) 11/01/22 16:33 Blood Culture - Preliminary Blood No Growth after 96 hours
[2022-11-06 16:28] LABS: Glucose,Whole Blood 199 mg/dL (70-110)
[2022-11-06] MEDS ORDERED: guaiFENesin 600 MG TABLET.ER PO PRN (16:28)
[2022-11-06] MEDS: rOPINIRole HCL 4 MG TABLET PO SCH (20:24)
[2022-11-06] MEDS: MONTELUKAST 10 MG TAB PO SCH (20:24)
[2022-11-06 20:32] LABS: Glucose,Whole Blood 261 mg/dL (70-110)
[2022-11-06] MEDS: MELATONIN 5 MG TABLET PO PRN (20:54)
[2022-11-07] MEDS: methylPREDNISolone SOD SUCCI 125 MG/2 ML VIAL IV SCH ×5 (00:01→21:04)
[2022-11-07 06:40] LABS: Glucose,Whole Blood 133 mg/dL (70-110)
[2022-11-07] MEDS: INSULIN ASPART (NovoLOG) 100 UNIT/ML VIAL SQ SCH ×4 (06:44→21:04)
[2022-11-07] MEDS: BUDESONIDE 0.5 MG/2 ML NEBU INHALATION SCH ×2 (08:13→19:32)
[2022-11-07] MEDS: FORMOTEROL FUMARATE 20 MCG/2 ML NEBU INHALATION SCH ×2 (08:13→19:43)
[2022-11-07] MEDS: IPRATROPIUM-ALBUTEROL 3 ML NEB INHALATION SCH ×4 (08:13→19:32)
[2022-11-07] MEDS: VERAPAMIL SR 120 MG TABLET.ER PO SCH (08:29)
[2022-11-07] MEDS: THEOPHYLLINE 24 HOUR 400 MG CAP.ER.24H PO SCH (08:29)
[2022-11-07] MEDS: LORATADINE 10 MG TAB PO SCH (08:29)
[2022-11-07] MEDS: ENOXAPARIN 40 MG/0.4 ML SYRINGE SQ SCH (08:29)
[2022-11-07] MEDS: DULoxetine HCL 30 MG CAPSULE.DR PO SCH (08:30)
[2022-11-07 08:55] LABS: HCT 37.3 % (37.2-46.3); HGB 10.9 g/dL (12.0-15.0); MCH 30.4 pg (27.0-32.0); MCHC 29.2 g/dL (32.0-37.0); MCV 104.2 fL (80.0-97.0); Mean Platelet Volume 11.6 fL (9.5-12.2); NRBC Per 100 WBC 0.5 /100 WBCS (0.0-0.0); Platelet Count 240 X 10*3/uL (140-440); RBC 3.58 X 10*6/uL (4.10-5.20); RDW 16.1 % (11.5-14.5)
[2022-11-07 09:34] LABS: African American GFR (CKD) 107.8 (60.0-200.0); Anion Gap 3.1 mmol/L (10.00-18.00); BUN/Creat Ratio 45.83 Ratio (12.00-20.00); Blood Urea Nitrogen 27.5 mg/dL (9.0-27.0); Calcium 8.4 mg/dL (8.7-10.3); Carbon Dioxide 41.9 mmol/L (20.0-27.5); Potassium 5.4 mmol/L (3.5-5.5)
[2022-11-07 11:00] LABS: Glucose,Whole Blood 164 mg/dL (70-110)
[2022-11-07 11:29] VITALS: BMI 34.4
--- NOTE | 2022-11-07 12:56 | P.PN ---
Subjective Progress Note Date: 11/07/22 Principal diagnosis: Acute exacerbation of COPD 11/05/2022 the patient is still doing poor without any major intermittent improvement compared to yesterday. While at rest, she seems to be comfortably and she gets worked up on the limited amount of activity. No signs of any CO2 narcosis. Remains on the same treatment which includes a combination of DuoNeb about treatments [id number], Perforomist and Pulmicort neb blotchiness twice a day, IV Solu-Medrol and theophylline. Tolerating diet.Blood work from today shows a white cell count of 15.4 with a hemoglobin of 10.5 and a platelet count of 219. Sodiums of 142. Bicarb is at 40 with a BUN of 24 and a creatinine of 0.7. The patient is taking Xanax for anxiety. The patient had a panic attack while she was on BiPAP and she was taken off the BiPAP and currently she is on 4 L O2 nasal cannula. The patient is seen today 11/06/2022 in follow-up on the regular medical floor. She is currently resting comfortably in bed. Awake and alert in no acute distress. She is still somewhat dyspneic with conversation. Dyspneic with minimal exertion. She is maintaining O2 saturations in the 90s on 4 L/m per nasal cannula. Blood cultures reveal no growth. Blood sugar 188. She is continued on DuoNeb inhalations, Pulmicort and Perforomist inhalations, IV Solu- Medrol, theophylline, Singulair. Reevaluated today on 11/07/2022, patient is gradually improving, less cough and less wheezing less shortness of breath, patient does not believe that she is back to her baseline, she is basically maximized on every bronchodilator we could think off, and she is also on steroids. I believe the patient is getting close to be discharged home, will plan to discharge the patient home tomorrow, nonetheless the patient will get readmitted and readmitted over and over again because of her severe underlying COPD, and it is end-stage. CBC today showed leukocytosis with WBC count of 17.6 hemoglobin 10.9. Electrolytes are normal bicarb is 42 which is expected considering her underlying severe COPD and chronic respiratory acidosis with metabolic compensation Objective - Vital Signs Vital signs: Vital Signs Temp 97.8 F 11/07/22 07:49 Pulse 118 H 11/07/22 11:18 Resp 20 11/07/22 07:49 BP 196/84 11/07/22 07:49 Pulse Ox 94 L 11/07/22 08:14 FiO2 35 11/05/22 00:12 Intake & Output 11/06/22 11/07/22 11/07/22 18:59 06:59 18:59 Intake Total 480 Output Total 200 Balance -200 480 Weight 82.554 kg Intake: Oral 480 Output: Urine 200 Other: Voiding Method Bedside Commode # Voids 4 # Bowel Movements 1 - Exam Physical Exam: Revealed a 67-year-old female on 4 L nasal cannula, in no distress, seems to be comfortable, sitting at a bedside chair. Head: Atraumatic, normocephalic, patient is cushingoid. HEENT:[Neck is supple.] [No neck masses.] [No thyromegaly.] [No JVD.] Chest: Diminished breath sound bilaterally, scattered wheezing noted. Cardiac Exam: [Normal S1 and S2, no S3 gallop, no murmur.] Abdomen: [Soft, nontender, no megaly, no rebound, no guarding, normal bowel sounds.] Extremities: [No clubbing, no edema, no cyanosis.] Neurological Exam: [No focal neurologic deficit.] Alert and oriented 3. Psychiatric: Normal mood affect and normal mental status examination. Skin: No rashes - Labs CBC & Chem 7: 11/07/22 04:44 11/07/22 04:44 Labs: Abnormal Lab Results - Last 24 Hours (Table) 11/06/22 11/06/22 11/07/22 Range/Units 16:27 20:31 04:44 WBC 17.60 H (4.50-10.00) X 10*3/uL RBC 3.58 L (4.10-5.20) X 10*6/uL Hgb 10.9 L (12.0-15.0) g/dL MCV 104.2 H (80.0-97.0) fL MCHC 29.2 L (32.0-37.0) g/dL RDW 16.1 H (11.5-14.5) % Absolute Nucleated RBC 0.09 H (0.00-0.00) X 10*3/uL NRBC/100 WBC Diff 0.5 H (0.0-0.0) /100 WBCS Chloride (96-109) mmol/L Carbon Dioxide (20.0-27.5) mmol/L Anion Gap (10.00-18.00) mmol/L BUN (9.0-27.0) mg/dL BUN/Creatinine Ratio (12.00-20.00) Ratio Glucose (70-110) mg/dL POC Glucose (mg/dL) 199 H 261 H (70-110) mg/dL Calcium (8.7-10.3) mg/dL 11/07/22 11/07/22 11/07/22 Range/Units 04:44 06:38 10:58 WBC (4.50-10.00) X 10*3/uL RBC (4.10-5.20) X 10*6/uL Hgb (12.0-15.0) g/dL MCV (80.0-97.0) fL MCHC (32.0-37.0) g/dL RDW (11.5-14.5) % Absolute Nucleated RBC (0.00-0.00) X 10*3/uL NRBC/100 WBC Diff (0.0-0.0) /100 WBCS Chloride 94 L (96-109) mmol/L Carbon Dioxide 41.9 H* (20.0-27.5) mmol/L Anion Gap 3.10 L (10.00-18.00) mmol/L BUN 27.5 H (9.0-27.0) mg/dL BUN/Creatinine Ratio 45.83 H (12.00-20.00) Ratio Glucose 140 H (70-110) mg/dL POC Glucose (mg/dL) 133 H 164 H (70-110) mg/dL Calcium 8.4 L (8.7-10.3) mg/dL Microbiology - Last 24 Hours (Table) 11/01/22 16:33 Blood Culture - Preliminary Blood No Growth after 120 hours Assessment and Plan Assessment: Impression: Acute exacerbation of COPD Acute on chronic hypoxic respiratory failure patient is normally at home on 3 L nasal cannula now on 4 L nasal cannula Acute on chronic hypercapnic respiratory failure, patient is on VPAP auto. History of left upper lobe lung nodule being followed on outpatient basis, History of COVID-19 pneumonia Benign essential hypertension History of her with her arthritis Chronic back pain Former smoker Recommendation: Continue present course of treatment including bronchodilators. Continue steroids. Continue theophylline. Titrate oxygen accordingly. Consider discharge planning in the next 24 hours Expect recurrent and recurrent admissions no matter what is done for this patient Overall prognosis is extremely poor and guarded. Considering her recurrent admissions, I strongly doubt if the patient could actually undergo lung transplant. And she will be eventually denied Time with Patient: Less than 30
[2022-11-07 16:13] LABS: Glucose,Whole Blood 268 mg/dL (70-110)
--- NOTE | 2022-11-07 19:36 | P.PN ---
Subjective Progress Note Date: 11/07/22 Hospital course: Patient is a 67-year-old female with COPD on 3L home O2 previsouly on lung transplant list, HTN, rheumatolid arthritis, and ADHD who presents to the emergency room with complaints of gradually worsening shortness of breath. She was sent in from her PCP clinic due to low O2 satIn the ER she underwent an extensive evaluation. She was found to be 90% on 4 L nasal cannula with tachypnea She was tachypneic with a respiratory rate of 22. CBC showed a leukocytosis of 15.5. D-dimer was negative. CMP showed potassium of 5.6, bicarb 39, BUN of 21. Troponin was hurt 0.014. BNP 151. Chest x-ray in the emergency room showed interstitial density mid and lower lungs consider bronchitis, asthma or atypical pneumonias. Is admitted for acute exacerbation of COPD. Pulmonary was consulted. She was started on Solu-Medrol, DuoNeb's, and a 3 day course of Zithromax. Physical exam: Patient seen and fully evaluated at bedside this morning. Patient reports continued dyspnea with minimal exertion. Attempted to discuss with patient regarding needs for palliative care and home care and appropriately following up upon discharge. Patient reports that she does not feel good and would prefer not to talk with provider at this time. Vital signs reviewed and stable. General: Nontoxic, no distress and appears stated age. Obese Derm: Skin warm and dry, normal coloration for ethnicity. Head: Atraumatic, normocephalic and symmetric. Eyes: EOMs intact, no lid lag, and anicteric sclera Mouth: no lip lesions, mucus membranes moist Cardiovascular: regular rate and rhythm with normal S1S2, no murmur, positive posterior tibial pulses bilaterally, and cap refill < 2 seconds. Lungs: Respirations slightly labored dependent on 5 L O2 via nasal cannula. Lungs tight and diffusely wheezy throughout all guzman. Ext: ROM intact. No gross muscle atrophy, no edema, no contractures Neuro: Speech clear, face symmetrical and CN II-XII grossly intact with no noted focal neuro deficits Psych: Alert and oriented to person, place, time, and situation. Appropriate and pleasant affect. Assessment and Plan of Care: Acute COPD exacerbation Acute on chronic hypoxic respiratory failure Metabolic alkalosis, suspected compensatory secondary to respiratory acidosis Acute bronchitis - Continue with Solu-Medrol, DuoNeb's. - Completed 3 day course of azithromycin - Supplemental oxygen - BiPap while sleeping Hyperglycemia -Blood sugars reviewed-last 24 hours is 255 - A1c 5.02 January 2022, will repeat - Likely steroid-induced - Currently on low-dose sliding scale - Accu-Cheks before meals at bedtime Chronic conditions: Hypertension, ADHD, rheumatoid arthritis Resolved: Hyperkalemia CODE STATUS: Full code DVT prophylaxis: Lovenox Discussed with: Patient and RN Anticipated discharge date: Likely tomorrow morning Anticipated discharge place: Home with palliative and home care A total of 34 minutes was spent on the care of this complex patient more than 50% of the time was spent in counseling and care coordination. Kapil Gonzalez NP rendered care for this patient independently, reviewed the findings and plan as documented in the note above. I did not physically speak with or examine the patient on this date. Objective - Vital Signs Vital signs: Vital Signs Temp 97.8 F 11/07/22 07:49 Pulse 115 H 11/07/22 08:14 Resp 20 11/07/22 07:49 BP 196/84 11/07/22 07:49 Pulse Ox 94 L 11/07/22 08:14 FiO2 35 11/05/22 00:12 Intake & Output 11/06/22 11/07/22 11/07/22 18:59 06:59 18:59 Intake Total 480 Output Total 200 Balance -200 480 Intake: Oral 480 Output: Urine 200 Other: Voiding Method Bedside Commode # Voids 4 # Bowel Movements 1 - Labs CBC & Chem 7: 11/07/22 04:44 11/07/22 04:44 Labs: Abnormal Lab Results - Last 24 Hours (Table) 11/06/22 11/06/22 11/06/22 Range/Units 11:49 16:27 20:31 POC Glucose (mg/dL) 255 H 199 H 261 H (70-110) mg/dL 11/07/22 Range/Units 06:38 POC Glucose (mg/dL) 133 H (70-110) mg/dL Microbiology - Last 24 Hours (Table) 11/01/22 16:33 Blood Culture - Preliminary Blood No Growth after 120 hours
[2022-11-07 20:41] LABS: Glucose,Whole Blood 214 mg/dL (70-110)
[2022-11-07] MEDS: MELATONIN 5 MG TABLET PO PRN (21:04)
[2022-11-07] MEDS: MONTELUKAST 10 MG TAB PO SCH (21:04)
[2022-11-07] MEDS: rOPINIRole HCL 4 MG TABLET PO SCH (21:04)
[2022-11-08 06:20] LABS: Glucose,Whole Blood 172 mg/dL (70-110)
[2022-11-08] MEDS: INSULIN ASPART (NovoLOG) 100 UNIT/ML VIAL SQ SCH ×4 (06:22→21:31)
[2022-11-08] MEDS: methylPREDNISolone SOD SUCCI 125 MG/2 ML VIAL IV SCH ×3 (06:23→17:14)
[2022-11-08] MEDS: ENOXAPARIN 40 MG/0.4 ML SYRINGE SQ SCH (06:55)
[2022-11-08] MEDS: DULoxetine HCL 30 MG CAPSULE.DR PO SCH (06:55)
[2022-11-08] MEDS: LORATADINE 10 MG TAB PO SCH (06:56)
[2022-11-08] MEDS: VERAPAMIL SR 120 MG TABLET.ER PO SCH (06:56)
[2022-11-08] MEDS: THEOPHYLLINE 24 HOUR 400 MG CAP.ER.24H PO SCH (06:56)
[2022-11-08] MEDS: FORMOTEROL FUMARATE 20 MCG/2 ML NEBU INHALATION SCH ×2 (08:14→21:14)
[2022-11-08] MEDS: IPRATROPIUM-ALBUTEROL 3 ML NEB INHALATION SCH ×4 (08:14→21:14)
[2022-11-08] MEDS: BUDESONIDE 0.5 MG/2 ML NEBU INHALATION SCH ×2 (08:14→21:14)
[2022-11-08 11:09] LABS: Glucose,Whole Blood 248 mg/dL (70-110)
--- NOTE | 2022-11-08 14:29 | P.PN ---
Subjective Progress Note Date: 11/08/22 Principal diagnosis: acute exacerbation of COPD 11/05/2022 the patient is still doing poor without any major intermittent improvement compared to yesterday. While at rest, she seems to be comfortably and she gets worked up on the limited amount of activity. No signs of any CO2 narcosis. Remains on the same treatment which includes a combination of DuoNeb about treatments [id number], Perforomist and Pulmicort neb blotchiness twice a day, IV Solu-Medrol and theophylline. Tolerating diet.Blood work from today shows a white cell count of 15.4 with a hemoglobin of 10.5 and a platelet count of 219. Sodiums of 142. Bicarb is at 40 with a BUN of 24 and a creatinine of 0.7. The patient is taking Xanax for anxiety. The patient had a panic attack while she was on BiPAP and she was taken off the BiPAP and currently she is on 4 L O2 nasal cannula. The patient is seen today 11/06/2022 in follow-up on the regular medical floor. She is currently resting comfortably in bed. Awake and alert in no acute distress. She is still somewhat dyspneic with conversation. Dyspneic with minimal exertion. She is maintaining O2 saturations in the 90s on 4 L/m per nasal cannula. Blood cultures reveal no growth. Blood sugar 188. She is continued on DuoNeb inhalations, Pulmicort and Perforomist inhalations, IV Solu- Medrol, theophylline, Singulair. Reevaluated today on 11/07/2022, patient is gradually improving, less cough and less wheezing less shortness of breath, patient does not believe that she is back to her baseline, she is basically maximized on every bronchodilator we could think off, and she is also on steroids. I believe the patient is getting close to be discharged home, will plan to discharge the patient home tomorrow, nonetheless the patient will get readmitted and readmitted over and over again because of her severe underlying COPD, and it is end-stage. CBC today showed leukocytosis with WBC count of 17.6 hemoglobin 10.9. Electrolytes are normal bicarb is 42 which is expected considering her underlying severe COPD and chronic respiratory acidosis with metabolic compensation patient is being reevaluated today on 11/08/2022 in follow-up on a general medical floor. Her breathing is a little bit more wheezy and tight today. she remains on 4 L nasal cannula. her pulmonary status has been maximized with a combination of DuoNeb inhalation, budesonide inhalation, formoterol inhalation, IV Solu-Medrol, Singulair, theophylline, and Mucinex. no new chest x-ray to review today. No new labs to review today. her BMP from yesterday showed a sodium of 139, potassium 5.4, chloride 94, serum CO2 of 42,BUN 27.5, creatinine 0.6, glucose 140. serum CO2 is chronically elevated, and she has no signs of hypercapnic narcosis. she remains afebrile, and her vital signs remain stable. Objective - Vital Signs Vital signs: Vital Signs Temp 98.8 F 11/08/22 13:00 Pulse 57 L 11/08/22 13:00 Resp 24 11/08/22 13:00 BP 174/74 11/08/22 13:00 Pulse Ox 96 11/08/22 13:53 FiO2 35 11/05/22 00:12 Intake & Output 11/07/22 11/08/22 11/08/22 18:59 06:59 18:59 Weight 82.554 kg Other: Voiding Method Bedside Commode # Voids 2 5 1 # Bowel Movements 1 1 - Exam Physical Exam: Revealed a 67-year-old female on 4 L nasal cannula, in no distress, sitting up in bed Head: Atraumatic, normocephalic HEENT:Neck is supple, No neck masses. No thyromegaly. No JVD. Chest: Diminished breath sound bilaterally, expiratory wheezes heard throughout. No rales or rhonchi. On 4 L nasal cannula. No conversational dyspnea or accessory muscle use. Cardiac Exam: Normal S1 and S2, no S3 gallop, no murmur. rhythm is regular Abdomen: [Soft, nontender, no megaly, no rebound, no guarding, normal bowel sounds.] Extremities: [No clubbing, no edema, no cyanosis.] Neurological Exam: [No focal neurologic deficit.] Alert and oriented 3. Psychiatric: Normal mood affect and normal mental status examination. Skin: No rashes - Labs CBC & Chem 7: 11/07/22 04:44 11/07/22 04:44 Labs: Abnormal Lab Results - Last 24 Hours (Table) 11/07/22 11/07/22 11/08/22 Range/Units 16:11 20:39 06:18 POC Glucose (mg/dL) 268 H 214 H 172 H (70-110) mg/dL 11/08/22 Range/Units 11:07 POC Glucose (mg/dL) 248 H (70-110) mg/dL Microbiology - Last 24 Hours (Table) 11/01/22 16:33 Blood Culture - Final Blood No Growth after 144 hours Assessment and Plan Assessment: Acute exacerbation of COPD Acute on chronic hypoxic respiratory failure patient is normally at home on 3 L nasal cannula now on 4 L nasal cannula Acute on chronic hypercapnic respiratory failure, patient is on VPAP auto. History of left upper lobe lung nodule being followed on outpatient basis, History of COVID-19 pneumonia Benign essential hypertension Chronic back pain Former smoker Plan: Continue present course of treatment including bronchodilators. Continue steroids. Continue theophylline. continue supplemental oxygen to maintain oxygen saturation between 90 and 92%. Consider discharge in the next 24-48 hours Overall prognosis is extremely poor and guarded. we will continue to follow I have personally seen and examined the patient, performed the documentation and the assessment and plan as written. Number of minutes spent on the visit: 10. Time with Patient: Less than 30
[2022-11-08] MEDS ORDERED: lisinopriL 20 MG TAB PO SCH (14:51)
--- NOTE | 2022-11-08 14:58 | P.PN ---
Subjective Progress Note Date: 11/08/22 Hospital course: Patient is a 67-year-old female with COPD on 3L home O2 previsouly on lung transplant list, HTN, rheumatolid arthritis, and ADHD who presents to the emergency room with complaints of gradually worsening shortness of breath. She was sent in from her PCP clinic due to low O2 satIn the ER she underwent an extensive evaluation. She was found to be 90% on 4 L nasal cannula with tachypnea She was tachypneic with a respiratory rate of 22. CBC showed a leukocytosis of 15.5. D-dimer was negative. CMP showed potassium of 5.6, bicarb 39, BUN of 21. Troponin was hurt 0.014. BNP 151. Chest x-ray in the emergency room showed interstitial density mid and lower lungs consider bronchitis, asthma or atypical pneumonias. Is admitted for acute exacerbation of COPD. Pulmonary was consulted. She was started on Solu-Medrol, DuoNeb's, and a 3 day course of Zithromax. Physical exam: Patient seen and fully evaluated at bedside this morning. Patient reports continued dyspnea with minimal exertion. Talked with patient regarding her baseline oxygen needs and strongly advised follow-up with COPD navigator, palliative care, and home care to learn to adjust to her needs. Patient is adamant that she will not allow anyone in her home and is requesting transfer to a [facility] facility upon discharge. Patient has been [facility] to [facility] for [facility]hab upon discharge. After discussion with pulmonary, patient is to be discharged to rehab tomorrow morning. Vital signs reviewed and stable. General: Nontoxic, no distress and appears stated age. Obese Derm: Skin warm and dry, normal coloration for ethnicity. Head: Atraumatic, normocephalic and symmetric. Eyes: EOMs intact, no lid lag, and anicteric sclera Mouth: no lip lesions, mucus membranes moist Cardiovascular: regular rate and rhythm with normal S1S2, no murmur, positive posterior tibial pulses bilaterally, and cap refill < 2 seconds. Lungs: Respirations slightly labored dependent on 5 L O2 via nasal cannula. Lungs tight and diffusely wheezy throughout all guzman. Ext: ROM intact. No gross muscle atrophy, no edema, no contractures Neuro: Speech clear, face symmetrical and CN II-XII grossly intact with no noted focal neuro deficits Psych: Alert and oriented to person, place, time, and situation. Appropriate and pleasant affect. Assessment and Plan of Care: Acute COPD exacerbation Acute on chronic hypoxic respiratory failure with hypoxia and hypercarbia secondary to COPD exacerbation Metabolic alkalosis, resulting from compensatory secondary to respiratory acidosis -Continue with Solu-Medrol and will start prednisone taper tomorrow as discussed with pulmonary -DuoNeb's scheduled 4 times daily and as needed for shortness of breath and/or wheezing. -Completed 3 day course of azithromycin -Supplemental oxygen, baseline oxygen 4 L -Continue BiPap while sleeping Hyperglycemia - A1c 5.7, order placed to repeat - Hyperglycemia likely steroid-induced - Currently on low-dose sliding scale - Accu-Cheks before meals at bedtime Hypertension, poorly controlled -Blood pressures over the past 24 hours had been elevated 140s to 190s systolic. In addition to daily medication regimen with verapamil, Catapres was added on to daily medication regimen in attempts to optimize blood pressures. Will monitor for improvement and make additional medication changes/adjustments as needed. Resolved: Hyperkalemia CODE STATUS: Full code DVT prophylaxis: Lovenox Discussed with: Patient and RN Anticipated discharge date: Likely tomorrow morning Anticipated discharge place: Home with palliative and home care A total of 34 minutes was spent on the care of this complex patient more than 50% of the time was spent in counseling and care coordination. Kapil Gonzalez NP rendered care for this patient independently, reviewed the findings and plan as documented in the note above. I did not physically speak with or examine the patient on this date. Objective - Vital Signs Vital signs: Vital Signs Temp 98.1 F 11/08/22 07:37 Pulse 96 11/08/22 08:46 Resp 20 11/08/22 07:37 BP 131/56 11/08/22 07:37 Pulse Ox 92 L 11/08/22 07:37 FiO2 35 11/05/22 00:12 Intake & Output 11/07/22 11/08/22 11/08/22 18:59 06:59 18:59 Weight 82.554 kg Other: Voiding Method Bedside Commode # Voids 2 5 # Bowel Movements 1 1 - Labs CBC & Chem 7: 11/07/22 04:44 11/07/22 04:44 Labs: Abnormal Lab Results - Last 24 Hours (Table) 11/07/22 11/07/22 11/07/22 Range/Units 04:44 04:44 10:58 WBC 17.60 H (4.50-10.00) X 10*3/uL RBC 3.58 L (4.10-5.20) X 10*6/uL Hgb 10.9 L (12.0-15.0) g/dL MCV 104.2 H (80.0-97.0) fL MCHC 29.2 L (32.0-37.0) g/dL RDW 16.1 H (11.5-14.5) % Absolute Nucleated RBC 0.09 H (0.00-0.00) X 10*3/uL NRBC/100 WBC Diff 0.5 H (0.0-0.0) /100 WBCS Chloride 94 L (96-109) mmol/L Carbon Dioxide 41.9 H* (20.0-27.5) mmol/L Anion Gap 3.10 L (10.00-18.00) mmol/L BUN 27.5 H (9.0-27.0) mg/dL BUN/Creatinine Ratio 45.83 H (12.00-20.00) Ratio Glucose 140 H (70-110) mg/dL POC Glucose (mg/dL) 164 H (70-110) mg/dL Calcium 8.4 L (8.7-10.3) mg/dL 11/07/22 11/07/22 11/08/22 Range/Units 16:11 20:39 06:18 WBC (4.50-10.00) X 10*3/uL RBC (4.10-5.20) X 10*6/uL Hgb (12.0-15.0) g/dL MCV (80.0-97.0) fL MCHC (32.0-37.0) g/dL RDW (11.5-14.5) % Absolute Nucleated RBC (0.00-0.00) X 10*3/uL NRBC/100 WBC Diff (0.0-0.0) /100 WBCS Chloride (96-109) mmol/L Carbon Dioxide (20.0-27.5) mmol/L Anion Gap (10.00-18.00) mmol/L BUN (9.0-27.0) mg/dL BUN/Creatinine Ratio (12.00-20.00) Ratio Glucose (70-110) mg/dL POC Glucose (mg/dL) 268 H 214 H 172 H (70-110) mg/dL Calcium (8.7-10.3) mg/dL Microbiology - Last 24 Hours (Table) 11/01/22 16:33 Blood Culture - Final Blood No Growth after 144 hours
[2022-11-08] MEDS ORDERED: amLODIPine 5 MG TAB PO SCH (15:00)
[2022-11-08] MEDS: cloNIDine HCL 0.1 MG TAB PO SCH ×2 (15:42→21:30)
[2022-11-08 16:11] LABS: Glucose,Whole Blood 117 mg/dL (70-110)
[2022-11-08 21:12] LABS: Glucose,Whole Blood 285 mg/dL (70-110)
[2022-11-08] MEDS: MELATONIN 5 MG TABLET PO PRN (21:29)
[2022-11-08] MEDS: MONTELUKAST 10 MG TAB PO SCH (21:29)
[2022-11-08] MEDS: rOPINIRole HCL 4 MG TABLET PO SCH (21:30)
[2022-11-08] MEDS: IPRATROPIUM-ALBUTEROL 3 ML NEB INHALATION PRN (23:59)
[2022-11-09] MEDS: methylPREDNISolone SOD SUCCI 125 MG/2 ML VIAL IV SCH ×3 (00:07→12:28)
[2022-11-09] MEDS: IPRATROPIUM-ALBUTEROL 3 ML NEB INHALATION PRN (04:16)
[2022-11-09] MEDS: ALPRAZolam 0.5 MG TAB PO PRN (04:45)
[2022-11-09 06:11] LABS: Glucose,Whole Blood 206 mg/dL (70-110)
[2022-11-09] MEDS: INSULIN ASPART (NovoLOG) 100 UNIT/ML VIAL SQ SCH ×2 (06:56→11:33)
[2022-11-09] MEDS: BUDESONIDE 0.5 MG/2 ML NEBU INHALATION SCH (07:51)
[2022-11-09] MEDS: IPRATROPIUM-ALBUTEROL 3 ML NEB INHALATION SCH ×2 (07:51→11:17)
[2022-11-09] MEDS: FORMOTEROL FUMARATE 20 MCG/2 ML NEBU INHALATION SCH (07:51)
[2022-11-09 08:02] VITALS: BP 176/81; RESP 16; TEMP 97.5
[2022-11-09] MEDS: THEOPHYLLINE 24 HOUR 400 MG CAP.ER.24H PO SCH (08:37)
[2022-11-09] MEDS: DULoxetine HCL 30 MG CAPSULE.DR PO SCH (08:37)
[2022-11-09] MEDS: ENOXAPARIN 40 MG/0.4 ML SYRINGE SQ SCH (08:37)
[2022-11-09] MEDS: cloNIDine HCL 0.1 MG TAB PO SCH (08:37)
[2022-11-09] MEDS: LORATADINE 10 MG TAB PO SCH (08:37)
[2022-11-09] MEDS: VERAPAMIL SR 120 MG TABLET.ER PO SCH (08:38)
--- NOTE | 2022-11-09 10:21 | P.DS ---
Providers Date of admission: 11/01/22 19:18 Expected date of discharge: 11/09/22 Attending physician: Autumn Verma MD Consults: 11/01/22 19:21 Consult Physician Routine Consulting Provider: Jose Elias Goodman Consult Reason/Comments: COPD Do you want consulting provider notified?: Yes Primary care physician: Nathanael Mckeon MD Hospital Course: Discharge Diagnosis: Acute COPD exacerbation, patient discharged home on 16 day prednisone taper as recommended by ruby on rails developer and to continue use of scheduled and as needed home nebulizer treatments as well as Formoterol, Pulmicort, Singulair, and Theophylline. Patient educated on importance of following prednisone taper and taking until complete. Patient to follow-up outpatient with her PCP in 1-2 days and with ruby on rails developer in 1 week. Patient discharged To [facility] for rehab and then to return home with [facility] Palliative [facility] services, [facility], and COPD navigator as previously arranged. Acute on chronic respiratory failure with hypoxia and hypercarbia secondary to acute COPD exacerbation. Hyperglycemia, reactive due to daily steroid use. hemoglobin A1c 5.8%. Medical noncompliance, patient was educated on the importance of taking steroids as prescribed and continued nightly use of her VPAP machine. Patient verbalized understanding and states going forward she will follow instructions closely as she continues to hope she will get back onto the transplant list. Patient previously discharged home with home palliative care and COPD navigator and currently being discharged to [facility]. Obstructive sleep apnea Continue ViPAP nightly. Hypertension. Monitor vital signs and continue daily medication regimen with verapamil. Rheumatoid arthritis Chronic back pain. Continue daily medication regimen with Mobic and Tylenol Pulmonary nodule, Previously known, continued to follow outpatient by ruby on rails developer. Iron deficiency anemia. Hemoglobin stable and at baseline. Patient to continue daily medication regimen with ferrous sulfate 325 mg each morning with breakfast. Hospital Course: Patient is a very pleasant 67-year-old female with a past medical history of advanced COPD home oxygen dependent on 3-4 L at all times, obstructive sleep apnea CPAP dependent nightly, hypertension, iron deficiency anemia, rheumatoid arthritis, and chronic back pain. Patient is very well-known to our services with frequent readmissions and has long history of medical and medication non- compliance. . She was admitted to our facility on 11/03/22 after being sent in from her PCP clinic due to low O2 saturations. Upon arrival to the ER patient underwent an extensive evaluation. She was found to be 90% on 4 L nasal cannula with tachypnea She was tachypneic with a respiratory rate of 22. CBC showed a leukocytosis of 15.5. D-dimer was negative. CMP showed potassium of 5.6, bicarb 39, and BUN of 21. Troponin was negative at 0.014. BNP 151. Chest x- ray in the emergency room showed interstitial density mid and lower lungs consider bronchitis, asthma or atypical pneumonias. Pt was admitted for acute exacerbation of COPD. Pulmonary was consulted. She was started on Solu-Medrol, DuoNeb's, and a 3 day course of Zithromax. Patient underwent an 8 day hospitalization. Medically she is back to her baseline oxygenation needs. Patient was advised on being compliant and following with COPD navigator and palliative care and home care to learn to adjust to her needs and slowly build endurance up to her body's ability. Patient was adamant that she will not allow anyone in her home and is requesting [facility] upon discharge. Patient has been accepted to [facility] for rehab. Again medically pt is stable for discharge and has been cleared from pulmonary standpoint recommending continued outpatient management. Patient seen and examined at bedside. She is back to baseline with shortness of breath with ambulation that is better at rest. Vital signs reviewed and stable. General: Nontoxic, no distress and appears stated age. Obese Derm: Skin warm and dry, normal coloration for ethnicity. Head: Atraumatic, normocephalic and symmetric. Eyes: EOMs intact, no lid lag, and anicteric sclera Mouth: no lip lesions, mucus membranes moist Cardiovascular: regular rate and rhythm with normal S1S2, no murmur, positive posterior tibial pulses bilaterally, and cap refill < 2 seconds. Lungs: Respirations slightly labored dependent on 4 L O2 via nasal cannula. Lungs diminished with expiratory wheezes. Ext: ROM intact. No gross muscle atrophy, no edema, no contractures Neuro: Speech clear, face symmetrical and CN II-XII grossly intact with no noted focal neuro deficits Psych: Alert and oriented to person, place, time, and situation. Appropriate and pleasant affect. A total of 37 minutes of time were spent preparing this complex discharge summary. Pt was discharged on 11/09/22 at 9:59 SHAQUILLE Gonzalez NP rendered care for this patient independently, reviewed the findings and plan as documented in the note above. I did not physically speak with or examine the patient on this date. Patient Condition at Discharge: Stable Plan - Discharge Summary New Discharge Prescriptions: New predniSONE See Taper PO DIRECTED 16 Days #40 tab ALPRAZolam [Xanax] 0.25 mg PO Q6H PRN 3 Days #12 tab PRN Reason: Anxiety Continue DULoxetine HCL [Cymbalta] 30 mg PO DAILY Montelukast [Singulair] 10 mg PO HS Meloxicam 15 mg PO DAILY Budesonide [Pulmicort] 0.5 mg INHALATION RT-BID rOPINIRole HCL [Requip] 4 mg PO HS Verapamil HCl [Verapamil ER] 120 mg PO DAILY Ferrous Sulfate [Iron (65 MG Elemental)] 325 mg PO DAILY Magnesium Oxide [Mag-Ox] 200 mg PO DAILY Cetirizine HCl 10 mg PO DAILY Albuterol Sulfate [Ventolin HFA] 2 puff INHALATION RT-Q6H PRN PRN Reason: Shortness Of Breath Theophylline 24 Hour [Sekou-24] 400 mg PO DAILY Ipratropium-Albuterol Nebulize [Duoneb 0.5 mg-3 mg/3 ml Soln] 3 ml INHALATION RT-QID Formoterol Fumarate [Perforomist] 20 mcg INHALATION RT-BID Discharge Medication List DULoxetine HCL [Cymbalta] 30 mg PO DAILY 01/15/21 [History] Montelukast [Singulair] 10 mg PO HS 02/19/21 [History] Ferrous Sulfate [Iron (65 MG Elemental)] 325 mg PO DAILY 07/04/21 [History] Magnesium Oxide [Mag-Ox] 200 mg PO DAILY 07/14/21 [History] Meloxicam 15 mg PO DAILY 08/05/21 [History] Cetirizine HCl 10 mg PO DAILY 04/20/22 [History] Albuterol Sulfate [Ventolin HFA] 2 puff INHALATION RT-Q6H PRN 08/24/22 [History] Budesonide [Pulmicort] 0.5 mg INHALATION RT-BID 09/19/22 [History] Formoterol Fumarate [Perforomist] 20 mcg INHALATION RT-BID 09/19/22 [History] Ipratropium-Albuterol Nebulize [Duoneb 0.5 mg-3 mg/3 ml Soln] 3 ml INHALATION RT-QID 09/19/22 [History] Theophylline 24 Hour [Sekou-24] 400 mg PO DAILY 09/19/22 [History] Verapamil HCl [Verapamil ER] 120 mg PO DAILY 09/19/22 [History] rOPINIRole HCL [Requip] 4 mg PO HS 09/19/22 [History] ALPRAZolam [Xanax] 0.25 mg PO Q6H PRN 3 Days #12 tab 11/09/22 [Rx] predniSONE See Taper PO DIRECTED 16 Days #40 tab 11/09/22 [Rx] Follow up Appointment(s)/Referral(s): [facility], [NON-STAFF] - 1-2 Days Nathanael Mckeon MD [Primary Care Provider] - 1-2 days [facility] [NON-STAFF] - As Needed oJse Elias Goodman MD [STAFF PHYSICIAN] - 1 Week Patient Instructions/Handouts: COPD (Chronic Obstructive Pulmonary Disease) (DC) Activity/Diet/Wound Care/Special Instructions: Activity: As tolerated. Take breaks as needed. Diet: Heart healthy and carb consistent diet. Avoid salts, or foods with hidden salts such as canned or boxed foods and frozen dinners. Extra salt makes your heart work harder and traps the fluid in your body for longer. Special Instructions: As we discussed, please take all of your medications as directed and remember to keep all of your doctor's appointments and follow-up as needed. Remember it is of utmost importance to sleep with your VPAP nightly. Thank you for allowing us to participate in your care, it was truly a pleasure having you for our patient!!! Discharge Disposition: TRANSFER TO SNF/ECF
[2022-11-09 11:21] VITALS: PULSE 88
[2022-11-09 11:27] LABS: Glucose,Whole Blood 189 mg/dL (70-110)
--- NOTE | 2022-11-09 13:18 | P.PN ---
Subjective Progress Note Date: 11/09/22 Principal diagnosis: acute exacerbation of COPD 11/05/2022 the patient is still doing poor without any major intermittent improvement compared to yesterday. While at rest, she seems to be comfortably and she gets worked up on the limited amount of activity. No signs of any CO2 narcosis. Remains on the same treatment which includes a combination of DuoNeb about treatments [id number], Perforomist and Pulmicort neb blotchiness twice a day, IV Solu-Medrol and theophylline. Tolerating diet.Blood work from today shows a white cell count of 15.4 with a hemoglobin of 10.5 and a platelet count of 219. Sodiums of 142. Bicarb is at 40 with a BUN of 24 and a creatinine of 0.7. The patient is taking Xanax for anxiety. The patient had a panic attack while she was on BiPAP and she was taken off the BiPAP and currently she is on 4 L O2 nasal cannula. The patient is seen today 11/06/2022 in follow-up on the regular medical floor. She is currently resting comfortably in bed. Awake and alert in no acute distress. She is still somewhat dyspneic with conversation. Dyspneic with minimal exertion. She is maintaining O2 saturations in the 90s on 4 L/m per nasal cannula. Blood cultures reveal no growth. Blood sugar 188. She is continued on DuoNeb inhalations, Pulmicort and Perforomist inhalations, IV Solu- Medrol, theophylline, Singulair. Reevaluated today on 11/07/2022, patient is gradually improving, less cough and less wheezing less shortness of breath, patient does not believe that she is back to her baseline, she is basically maximized on every bronchodilator we could think off, and she is also on steroids. I believe the patient is getting close to be discharged home, will plan to discharge the patient home tomorrow, nonetheless the patient will get readmitted and readmitted over and over again because of her severe underlying COPD, and it is end-stage. CBC today showed leukocytosis with WBC count of 17.6 hemoglobin 10.9. Electrolytes are normal bicarb is 42 which is expected considering her underlying severe COPD and chronic respiratory acidosis with metabolic compensation patient is being reevaluated today on 11/08/2022 in follow-up on a general medical floor. Her breathing is a little bit more wheezy and tight today. she remains on 4 L nasal cannula. her pulmonary status has been maximized with a combination of DuoNeb inhalation, budesonide inhalation, formoterol inhalation, IV Solu-Medrol, Singulair, theophylline, and Mucinex. no new chest x-ray to review today. No new labs to review today. her BMP from yesterday showed a sodium of 139, potassium 5.4, chloride 94, serum CO2 of 42,BUN 27.5, creatinine 0.6, glucose 140. serum CO2 is chronically elevated, and she has no signs of hypercapnic narcosis. she remains afebrile, and her vital signs remain stable. I'm reevaluating this patient today on 11/09/2022 in follow-up on a general medical floor. Patient is resting comfortably in bed, on 4 L nasal cannula. She is wheezing less today, and I believe her respiratory status is at baseline. Her pulmonary status remains maximized on current therapy. While sleeping, patient does have periods of apnea, and she should be using her AVAPS machine while asleep. No new chest x-ray to review today. No new labs to review today. Vital signs remain stable Objective - Vital Signs Vital signs: Vital Signs Temp 97.5 F L 11/09/22 08:00 Pulse 88 11/09/22 11:30 Resp 16 11/09/22 08:00 BP 176/81 11/09/22 08:00 Pulse Ox 95 11/09/22 01:41 FiO2 35 11/05/22 00:12 Intake & Output 11/08/22 11/09/22 11/09/22 18:59 06:59 18:59 Other: Voiding Method Bedside Commode # Voids 1 5 - Exam Physical Exam: Revealed a 67-year-old female on 4 L nasal cannula, in no distress, sitting up in bed Head: Atraumatic, normocephalic HEENT:Neck is supple, No neck masses. No thyromegaly. No JVD. Chest: Diminished breath sound bilaterally, faint expiratory wheezes heard throughout. No rales or rhonchi. On 4 L nasal cannula. No conversational dyspnea or accessory muscle use. While sleeping, patient does demonstrate periods of apnea while not on AVAPS. Cardiac Exam: Normal S1 and S2, no S3 gallop, no murmur. rhythm is regular Abdomen: [Soft, nontender, no megaly, no rebound, no guarding, normal bowel sounds.] Extremities: [No clubbing, no edema, no cyanosis.] Neurological Exam: [No focal neurologic deficit.] Alert and oriented 3. Psychiatric: Normal mood affect and normal mental status examination. Skin: No rashes - Labs CBC & Chem 7: 11/07/22 04:44 11/07/22 04:44 Labs: Abnormal Lab Results - Last 24 Hours (Table) 11/08/22 11/08/22 11/09/22 Range/Units 16:10 21:11 06:10 POC Glucose (mg/dL) 117 H 285 H 206 H (70-110) mg/dL 11/09/22 Range/Units 11:25 POC Glucose (mg/dL) 189 H (70-110) mg/dL Assessment and Plan Assessment: Acute exacerbation of COPD Acute on chronic hypoxic respiratory failure patient is normally at home on 3 L nasal cannula. On 4 L nasal cannula currently, and her respiratory status appears at baseline Acute on chronic hypercapnic respiratory failure, on 4 L nasal cannula. Utilize avaps at bedtime History of left upper lobe lung nodule being followed on outpatient basis, History of COVID-19 pneumonia Benign essential hypertension Chronic back pain Former smoker. Plan: Continue present course of treatment including bronchodilators. Continue steroids. Continue theophylline. continue supplemental oxygen to maintain oxygen saturation between 90 and 92%. Use AVAPS mode HS Care Home prognosis is extremely poor and guarded Patient's respiratory status is at baseline, and I feel that the patient can be cleared from a pulmonary standpoint. Plan is for discharge to [facility] on [facility] today I have personally seen and examined the patient, performed the documentation and the assessment and plan as written. Number of minutes spent on the visit: 10. Time with Patient: Less than 30
== END 2022-11-09 12:50 | DRG 190 ==
LOC: EC 14:34 → 4SSUR 19:18 → 1SOBS 21:21 → 4SSUR 11-02 19:18
PROVIDERS: ADMIT Family Medicine; ATTEND Family Medicine
PROC: 5A09357 Assistance with Respiratory Ventilation, Less than 24 Consecutive Hours, Continuous Positive Airway Pressure (ICD-10-PCS; principal; 2022-11-01)
DX: J44.1 Chronic obstructive pulmonary disease with (acute) exacerbation (principal); J96.21 Acute and chronic respiratory failure with hypoxia; J96.22 Acute and chronic respiratory failure with hypercapnia; Z99.81 Dependence on supplemental oxygen; I10 Essential (primary) hypertension; M06.9 Rheumatoid arthritis, unspecified; F32.A Depression, unspecified; D50.9 Iron deficiency anemia, unspecified; R73.9 Hyperglycemia, unspecified; T38.0X5A Adverse effect of glucocorticoids and synthetic analogues, initial encounter; T38.0X6A Underdosing of glucocorticoids and synthetic analogues, initial encounter; G47.33 Obstructive sleep apnea (adult) (pediatric); G89.29 Other chronic pain; H91.93 Unspecified hearing loss, bilateral; R60.0 Localized edema; R91.1 Solitary pulmonary nodule; E87.5 Hyperkalemia; M19.90 Unspecified osteoarthritis, unspecified site; M54.9 Dorsalgia, unspecified; F90.9 Attention-deficit hyperactivity disorder, unspecified type; D72.829 Elevated white blood cell count, unspecified; F41.0 Panic disorder [episodic paroxysmal anxiety]; R00.0 Tachycardia, unspecified; Z20.822 Contact with and (suspected) exposure to COVID-19; Z96.651 Presence of right artificial knee joint; Z91.14 Patient's other noncompliance with medication regimen; Z51.5 Encounter for palliative care; Z86.16 Personal history of COVID-19; Z87.01 Personal history of pneumonia (recurrent); Z79.899 Other long term (current) drug therapy; Z87.891 Personal history of nicotine dependence; Z79.1 Long term (current) use of non-steroidal anti-inflammatories (NSAID); Z91.048 Other nonmedicinal substance allergy status; Z88.8 Allergy status to other drugs, medicaments and biological substances; Z88.5 Allergy status to narcotic agent; Z86.14 Personal history of Methicillin resistant Staphylococcus aureus infection
CPT/HCPCS: 36415; 71046; 80048; 80053; 82803; 83036; 83605; 83735; 83880; 84484; 85025; 85027; 85379; 85610; 85730; 87040; 87636; 93005; 94640; 94660; 94760; 96374; 99285

== ENCOUNTER 2023-01-04 12:34 | Inpatient (IN) | payer MEDICARE, OTHER ==
[2023-01-04] MEDS ORDERED: ALBUTEROL NEBULIZED 2.5 MG/3 ML INHALATION STA (12:46)
[2023-01-04] MEDS ORDERED: DEXAMETHASONE SOD PHOSPHATE 10 MG/ML 1 ML VIAL IVP STA (12:46)
[2023-01-04] MEDS ORDERED: IPRATROPIUM 0.5 MG/2.5 ML NEBU INHALATION STA (12:46)
[2023-01-04] MEDS ORDERED: ALBUTEROL NEB (CONC) 2.5 MG/0.5 ML INHALATION STA (12:49)
[2023-01-04 13:11] LABS: Basophils # (A) 0.2 k/uL (0-0.2); Basophils % (A) 1 %; Eosinophils # (A) 0.2 k/uL (0-0.7); Eosinophils % (A) 2 %; HCT 46.3 % (34.0-46.0); HGB 14.3 gm/dL (11.4-16.0); Lymphocytes # (A) 1.1 k/uL (1.0-4.8); Lymphocytes % (A) 9 %; MCHC 30.8 g/dL (31.0-37.0); MCV 100.5 fL (80.0-100.0); Macrocytosis Slight; Mean Platelet Volume 9.1; Monocytes # (A) 0.6 k/uL (0-1.0); Monocytes % (A) 5 %; Neutrophils # (A) 9.9 k/uL (1.3-7.7); Neutrophils % (A) 81 %; Platelet Count 127 k/uL (150-450); RDW 15.2 % (11.5-15.5); WBC 12.2 k/uL (3.8-10.6)
--- NOTE | 2023-01-04 13:27 | XR ---
EXAMINATION TYPE: XR chest 1V DATE OF EXAM: 01/04/2023 COMPARISON: 17/03/2023. HISTORY: Difficulty breathing. TECHNIQUE: Single frontal view of the chest is obtained. FINDINGS: There is no focal air space opacity, pleural effusion, or pneumothorax seen. The cardiac silhouette is mildly enlarged and the pulmonary vessels are within normal limits. The osseous struc tures are intact. IMPRESSION: Mild cardiomegaly with no acute cardiopulmonary findings otherwise seen.
[2023-01-04 13:38] LABS: ALT 25 U/L (4-34); AST 20 U/L (14-36); African American GFR (CKD) >90 (>60 ml/min/1.73 sqM); Albumin 3.4 g/dL (3.5-5.0); Alkaline Phosphatase 71 U/L (38-126); Blood Urea Nitrogen 20 mg/dL (7-17); Calcium 8.4 mg/dL (8.4-10.2); Chloride 88 mmol/L (98-107); Glucose 116 mg/dL (74-99); Magnesium 2.1 mg/dL (1.6-2.3); Non-African American GFR(CKD) 82 (>60 ml/min/1.73 sqM); Potassium 3.7 mmol/L (3.5-5.1); Sodium 139 mmol/L (137-145); Total Bilirubin 0.5 mg/dL (0.2-1.3); Total Protein 5.6 g/dL (6.3-8.2)
[2023-01-04 13:42] LABS: INR 0.9 (<1.2); Prothrombin Time 9.5 sec (9.0-12.0)
[2023-01-04 13:44] LABS: Anion Gap 2 mmol/L
--- NOTE | 2023-01-04 13:46 | ED ---
General Adult HPI - General Chief complaint: Shortness of Breath Stated complaint: DOMI Time Seen by Provider: 01/04/23 12:46 Source: EMS Mode of arrival: EMS Limitations: no limitations - History of Present Illness Initial comments: This is a 67 year old female with a past medical history including significant COPD, CHF, hypertension presented to the emergency department via EMS for shortness of breath. It was reported the patient was found at her nursing facility, lethargic with her BiPAP mask off of her face. The patient does awake to sternal rub and due to the patient's presentation was brought into the emergency department for further evaluation and management. On arrival, the patient was on BiPAP and could only speak in short sentences. The patient was unable to provide a full history at this time secondary to her shortness of breath and lethargy. The patient denied any other acute pain however. The patient was resting in bed on BiPAP without any further distress noted. - Related Data Home Medications Medication Instructions Recorded Confirmed DULoxetine HCL [Cymbalta] 30 mg PO DAILY@0600 01/15/21 01/04/23 Montelukast [Singulair] 10 mg PO HS 02/19/21 01/04/23 Ferrous Sulfate [Iron (65 MG 325 mg PO DAILY 07/04/21 01/04/23 Elemental)] Magnesium Oxide [Mag-Ox] 200 mg PO DAILY 07/14/21 01/04/23 Meloxicam 15 mg PO DAILY@0600 08/05/21 01/04/23 Cetirizine HCl 10 mg PO DAILY@59904/20/22 01/04/23 Albuterol Sulfate [Ventolin HFA] 2 puff INHALATION RT-Q6H PRN 08/24/22 01/04/23 Budesonide [Pulmicort] 0.5 mg INHALATION RT-BID 09/19/22 01/04/23 Formoterol Fumarate [Perforomist] 20 mcg INHALATION RT-BID 09/19/22 01/04/23 Ipratropium-Albuterol Nebulize 3 ml INHALATION RT-QID 09/19/22 01/04/23 [Duoneb 0.5 mg-3 mg/3 ml Soln] Theophylline 24 Hour [Sekou-24] 400 mg PO DAILY@0600 09/19/22 01/04/23 Verapamil HCl [Verapamil ER] 120 mg PO DAILY@0600 09/19/22 01/04/23 rOPINIRole HCL [Requip] 4 mg PO HS 09/19/22 01/04/23 predniSONE 10 mg PO DAILY@0600 12/23/22 01/04/23 Furosemide [Lasix] 20 mg PO BID@0600,1200 01/04/23 01/04/23 Insulin Lispro [humaLOG Kwikpen] See Protocol SQ ACHS 01/04/23 01/04/23 carvediloL [Coreg] 6.25 mg PO BID 01/04/23 01/04/23 Previous Rx's Medication Instructions Recorded Famotidine [Pepcid] 20 mg PO BID #60 tablet 12/18/22 ALPRAZolam [Xanax] 0.25 mg PO Q6H PRN #4 tab 12/29/22 Acetaminophen Tab [Tylenol] 1,000 mg PO Q6HR PRN tab 12/29/22 Albuterol Inhaler [Ventolin Hfa 2 puff INHALATION RT-QID each 12/29/22 Inhaler] Doxycycline [Vibramycin] 100 mg PO BID 7 Days #14 cap 12/29/22 Tiotropium 2.5 Mcg/Puff [Spiriva 2 puff INHALATION RT-DAILY each 12/29/22 Respimat 2.5 Mcg] Tobra-Dexamet 0.3-0.1% Eye Adelita 2 drops RIGHT EYE Q4HR ml 12/29/22 [Tobradex Ophth Susp] Allergies Allergy/AdvReac Type Severity Reaction Status Date / Time infliximab [From Remicade] Allergy Dyspnea/HIV Verified 01/04/23 15:28 ES propoxyphene [From Darvon] Allergy Rash/Hives Verified 01/04/23 15:28 adhesive tape AdvReac "is hard Verified 01/04/23 15:28 on skin" Review of Systems ROS Statement: Those systems with pertinent positive or pertinent negative responses have been documented in the HPI. ROS Other: All systems not noted in ROS Statement are negative. 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 History of Any Multi-Drug Resistant Organisms: MRSA Date of last positivie culture/infection: february 2021 MDRO Source:: urine Past Surgical History: Appendectomy, Back Surgery, Bowel Resection, Ear Surgery, Hysterectomy, Joint Replacement Additional Past Surgical History / Comment(s): Partial vulvectomy, TAD with unilateral oophorectomy, R colectomy, EGD, colonoscopy, total R knee arthroplasty, kyphoplasty/bx, pain procedures, bilateral myringotomy/tubes. Past Anesthesia/Blood Transfusion Reactions: No Reported Reaction Additional Past Anesthesia/Blood Transfusion Reaction / Comment(s): . Past Psychological History: ADD/ADHD, Anxiety, Depression Smoking Status: Former smoker Past Alcohol Use History: None Reported Past Drug Use History: None Reported - Past Family History Father Family Medical History: Cancer, COPD Additional Family Medical History / Comment(s): COLON cancer. Mother Family Medical History: Cancer Additional Family Medical History / Comment(s): ESOPHAGUS cancer. Sister(s) Family Medical History: Cancer Additional Family Medical History / Comment(s): CERVICAL cancer, basal cell cancer. General Exam Limitations: altered mental status, physical limitation General appearance: alert, in no apparent distress, lethargic Head exam: Present: atraumatic, normocephalic, normal inspection Eye exam: Present: normal appearance, PERRL Pupils: Present: normal accommodation ENT exam: Present: normal exam, normal oropharynx, mucous membranes moist Neck exam: Present: normal inspection, full ROM Respiratory exam: Present: decreased breath sounds Cardiovascular Exam: Present: normal rhythm, tachycardia GI/Abdominal exam: Present: soft, distended (Without tenderness) Extremities exam: Present: normal inspection, full ROM Back exam: Present: normal inspection, full ROM Neurological exam: Present: alert, oriented X3 Psychiatric exam: Present: normal affect, normal mood Skin exam: Present: warm, dry Course Vital Signs 01/04/23 01/04/23 01/04/23 12:35 12:40 12:56 Temperature 97.7 F Pulse Rate 76 78 Respiratory 18 Rate Blood Pressure 120/67 O2 Sat by Pulse 96 Oximetry Fraction of 40 Inspired Oxygen (FIO2) 01/04/23 01/04/23 01/04/23 13:14 14:00 14:49 Temperature Pulse Rate 80 85 Respiratory 20 Rate Blood Pressure 127/57 O2 Sat by Pulse 99 Oximetry Fraction of 40 Inspired Oxygen (FIO2) 01/04/23 14:50 Temperature Pulse Rate 82 Respiratory 20 Rate Blood Pressure 139/71 O2 Sat by Pulse 97 Oximetry Fraction of Inspired Oxygen (FIO2) EKG Findings - EKG Comments: EKG Findings:: An EKG was obtained and was interpreted by myself showing a rate of 82, SC interval 137, QR christian of 73 and QTC of 4:15. This EKG showed a normal sinus rhythm however had PVCs as well as significant artifact secondary to the patient movement. There was no ST segment elevation or depressions noted. Medical Decision Making - Medical Decision Making Was pt. sent in by a medical professional or institution (, PA, LABORATORY ENGINEER, urgent ca re, hospital, or fpc...) When possible be specific @ -No Did you speak to anyone other than the patient for history (EMS, parent, family, police, friend...)? What history was obtained from this source @ -Yes, EMS Did you review nursing and triage notes (agree or disagree)? Why? @ -I reviewed and agree with nursing and triage notes Were old charts reviewed (outside hosp., previous admission, EMS record, old EKG, old radiological studies, urgent care reports/EKG's, fpc records)? Report findings @ -No old charts were reviewed Differential Diagnosis (chest pain, altered mental status, abdominal pain women, abdominal pain men, vaginal bleeding, weakness, fever, dyspnea, syncope, headache, dizziness, GI bleed, back pain, seizure, CVA, palpatations, mental health)? @ -Hypercarbia, respiratory failure, COPD exacerbation, CHF exacerbation EKG interpreted by me (3pts min.). @ -As above X-rays interpreted by me (1pt min.). @ -Chest x-ray was obtained and was interpreted by myself showing mild cardiomegaly with no acute cardiopulmonary findings. CT interpreted by me (1pt min.). @ -None done U/S interpreted by me (1pt. min.). @ -None done What testing was considered but not performed or refused? (CT, X-rays, U/S, labs)? Why? @ -None What meds were considered but not given or refused? Why? @ -None Did you discuss the management of the patient with other professionals (professionals i.e. DrEvelyn, PA, LABORATORY ENGINEER, lab, RT, psych nurse, social services counselor, customer experience analyst, teacher, personnel officer, field case manager)? Give summary @ -Yes, admitting physician as well as soil field technician, Dr. Goodman Was smoking cessation discussed for >3mins.? @ -No Was critical care preformed (if so, how long)? @ -Yes, see above Were there social determinants of health that impacted care today? How? (Homelessness, low income, unemployed, alcoholism, drug addiction, transportation, low edu. Level, literacy, decrease access to med. care, fpc, rehab)? @ -No Was there de-escalation of care discussed even if they declined (Discuss DNR or withdrawal of care, Hospice)? DNR status @ -No What co-morbidities impacted this encounter? (DM, HTN, Smoking, COPD, CAD, Cancer, CVA, ARF, Chemo, Hep., AIDS, mental health diagnosis, sleep apnea, morbid obesity)? @ -Severe end-stage COPD, hypertension, congestive heart failure Was patient admitted / discharged? Hospital course, mention meds given and route, prescriptions, significant lab abnormalities, going to OR and other per tinent info. @ -The patient was seen and evaluated in the emergency department. On physical exam, the patient was on BiPAP per EMS. Vital signs did show initial hypoxia at 84% on room air when EMS arrived. The patient was lethargic however would be able to wake up and answer questions appropriately. The patient was speaking in shortened sentences. The patient was continued on BiPAP and was given albuterol, ipratropium and Decadron. Workup was continued including an ABG that showed a pH of 7.34, CO2 of 84 and bicarb of 45. The patient continued to remain closely monitored observed and was evaluated at the bedside by the soil field technician, Dr. Goodman. He did agree to accept the patient for ICU and the admitting physician, Dr. puente also agreed for admission. The patient continued to remain stable on BiPAP and was admitted to the ICU in stable condition. Undiagnosed new problem with uncertain prognosis? @ -No Drug Therapy requiring intensive monitoring for toxicity (Heparin, Nitro, Insulin, Cardizem)? @ -No Were any procedures done? @ -No Diagnosis/symptom? @ -Acute hypoxic respiratory failure secondary to COPD exacerbation on BiPAP Acute, or Chronic, or Acute on Chronic? @ -Acute Uncomplicated (without systemic symptoms) or Complicated (systemic symptoms)? @ -Complicated Side effects of treatment? @ -No Exacerbation, Progression, or Severe Exacerbation? @ -Severe exacerbation Poses a threat to life or bodily function? How? (Chest pain, USA, MD, pneumonia, PE, COPD, DKA, ARF, appy, cholecystitis, CVA, Diverticulitis, Homicidal, Jaffe icidal, threat to staff... and all critical care pts) @ -Yes, continued hypoxic respiratory failure can lead to possible . - Lab Data Result diagrams: 01/04/23 13:00 01/04/23 13:00 Lab Results 01/04/23 01/04/23 01/04/23 Range/Units 13:00 13:00 13:00 WBC 12.2 H (3.8-10.6) k/uL RBC 4.60 (3.80-5.40) m/uL Hgb 14.3 (11.4-16.0) gm/dL Hct 46.3 H (34.0-46.0) % MCV 100.5 H (80.0-100.0) fL MCH 31.0 (25.0-35.0) pg MCHC 30.8 L (31.0-37.0) g/dL RDW 15.2 (11.5-15.5) % Plt Count 127 L (150-450) k/uL MPV 9.1 Neutrophils % 81 % Lymphocytes % 9 % Monocytes % 5 % Eosinophils % 2 % Basophils % 1 % Neutrophils # 9.9 H (1.3-7.7) k/uL Lymphocytes # 1.1 (1.0-4.8) k/uL Monocytes # 0.6 (0-1.0) k/uL Eosinophils # 0.2 (0-0.7) k/uL Basophils # 0.2 (0-0.2) k/uL Macrocytosis Slight PT 9.5 (9.0-12.0) sec INR 0.9 (<1.2) APTT 21.8 L (22.0-30.0) sec Sample Site ABG pH (7.35-7.45) ABG pCO2 (35-45) mmHg ABG pO2 (83-108) mmHg ABG HCO3 (21-25) mmol/L ABG Total CO2 (19-24) mmol/L ABG O2 Saturation (94-97) % ABG Base Excess mmol/L Parviz Test FiO2 % Sodium 139 (137-145) mmol/L Potassium 3.7 (3.5-5.1) mmol/L Chloride 88 L (98-107) mmol/L Carbon Dioxide 49 H* (22-30) mmol/L Anion Gap 2 mmol/L BUN 20 H (7-17) mg/dL Creatinine 0.75 (0.52-1.04) mg/dL Est GFR (CKD-EPI)AfAm >90 (>60 ml/min/1.73 sqM) Est GFR (CKD-EPI)NonAf 82 (>60 ml/min/1.73 sqM) Glucose 116 H (74-99) mg/dL Calcium 8.4 (8.4-10.2) mg/dL Magnesium 2.1 (1.6-2.3) mg/dL Total Bilirubin 0.5 (0.2-1.3) mg/dL AST 20 (14-36) U/L ALT 25 (4-34) U/L Alkaline Phosphatase 71 (38-126) U/L Troponin I (0.000-0.034) ng/mL NT-Pro-B Natriuret Pep pg/mL Total Protein 5.6 L (6.3-8.2) g/dL Albumin 3.4 L (3.5-5.0) g/dL 01/04/23 01/04/23 01/04/23 Range/Units 13:00 13:00 14:12 WBC (3.8-10.6) k/uL RBC (3.80-5.40) m/uL Hgb (11.4-16.0) gm/dL Hct (34.0-46.0) % MCV (80.0-100.0) fL MCH (25.0-35.0) pg MCHC (31.0-37.0) g/dL RDW (11.5-15.5) % Plt Count (150-450) k/uL MPV Neutrophils % % Lymphocytes % % Monocytes % % Eosinophils % % Basophils % % Neutrophils # (1.3-7.7) k/uL Lymphocytes # (1.0-4.8) k/uL Monocytes # (0-1.0) k/uL Eosinophils # (0-0.7) k/uL Basophils # (0-0.2) k/uL Macrocytosis PT (9.0-12.0) sec INR (<1.2) APTT (22.0-30.0) sec Sample Site lbrac ABG pH 7.34 L (7.35-7.45) ABG pCO2 84 H* (35-45) mmHg ABG pO2 80 L (83-108) mmHg ABG HCO3 45 H* (21-25) mmol/L ABG Total CO2 48 H (19-24) mmol/L ABG O2 Saturation 96.3 (94-97) % ABG Base Excess 19.2 mmol/L Parviz Test Yes FiO2 40 % Sodium (137-145) mmol/L Potassium (3.5-5.1) mmol/L Chloride (98-107) mmol/L Carbon Dioxide (22-30) mmol/L Anion Gap mmol/L BUN (7-17) mg/dL Creatinine (0.52-1.04) mg/dL Est GFR (CKD-EPI)AfAm (>60 ml/min/1.73 sqM) Est GFR (CKD-EPI)NonAf (>60 ml/min/1.73 sqM) Glucose (74-99) mg/dL Calcium (8.4-10.2) mg/dL Magnesium (1.6-2.3) mg/dL Total Bilirubin (0.2-1.3) mg/dL AST (14-36) U/L ALT (4-34) U/L Alkaline Phosphatase (38-126) U/L Troponin I 0.034 (0.000-0.034) ng/mL NT-Pro-B Natriuret Pep 301 pg/mL Total Protein (6.3-8.2) g/dL Albumin (3.5-5.0) g/dL Critical Care Time Critical Care Time: Yes Total Critical Care Time: 46 Disposition Clinical Impression: COPD with acute exacerbation, Acute respiratory failure with hypercapnia, Hypercarbia Disposition: ADMITTED IP TO THIS HOSP Condition: Stable Is patient prescribed a controlled substance at d/c from ED?: No Referrals: Candace Moreland MD [Primary Care Provider] - 1-2 days Time of Disposition: 14:30 Decision to Admit Reason: Admit from EC Decision Date: 01/04/23 Decision Time: 14:30
[2023-01-04 13:51] LABS: Carbon Dioxide 49 mmol/L (22-30)
[2023-01-04 14:05] LABS: Partial Thromboplastin Time 21.8 sec (22.0-30.0)
[2023-01-04 14:17] LABS: ABG Base Excess 19.2 mmol/L; ABG Oxygen Saturation 96.3 % (94-97); ABG PH 7.34 (7.35-7.45); ABG PO2 80 mmHg (83-108); ABG TCO2 48 mmol/L (19-24); Allen Test Performed? Yes
[2023-01-04 14:34] LABS: ABG PCO2 84 mmHg (35-45)
[2023-01-04 14:35] LABS: ABG HCO3 45 mmol/L (21-25)
--- NOTE | 2023-01-04 14:50 | P.CNPUL ---
History of Present Illness Consult date: 01/04/23 Reason for consult: dyspnea, COPD History of present illness: 67-year-old female patient with advanced end-stage COPD with frequent hospitalizations was been listed and subsequently deactivated from lung transplant list at [facility], coming in for another exacerbation. The patient was discharged from the hospital on 01/25/2023 after having a prolonged hospitalization for COPD exacerbation and acute on top of chronic hypoxic and hy percapnic respiratory failure. Note that the patient has advanced and chronic COPD, chronic action dependence maintain on oxygen at 3 L, chronic hypercapnic respiratory failure maintained on a VPAP auto with an EPAP minimum of 5 and a maximum pressure of 15 with a pressure support of 4. She has history of other comorbid conditions including hypertension, rheumatoid arthritis, chronic pain, including chronic back pain and previous history of infections with Covid 19 from which she recovered. She has also history was 2., Osteoarthritis, restless leg, gout and impaired hearing During this current admission, the patient presented to us from [facility] for worsening shortness of breath.. The patient was quite somnolent and lethargic and tachypneic at the time of emergency presentation. This started at the long-term facility. She was found to be lethargic while being on her BiPAP machine. The patient was arousable to sternal rub, yet she will go to sleep if left on terminated. Upon arrival she was immediately placed on a BiPAP. She was placed on a pressure of 12/6 cm of water. The generated tidal volume was low at around 150, and the patient had an elevated respiratory rate. Based on that, I modified the BiPAP to pressures of 15/6 cm of water. The patient is on FiO2 of 40%. Her tidal volume on a mechanical ventilator is around 250 mL. A chest x-ray was done that showed mild cardiomegaly without any Acute cardiac pulmonary process. The patient also had a blood gas that showed a pH of 7.34 with a pCO2 of 84 and pO2 of 80 and this was an FiO2 of 40% while being in the B iPAP. The echoes at 12.2 with a hemoglobin of 14 and a platelet count of 127. Serum bicarb is 49, sodium is at 139, potassium level is at 3.7. Troponin is at 0.04. LFTs are normal. Review of Systems The patient is currently strict on a BiPAP. Unable to take off the BiPAP at this point in time as the patient is quite tachypneic and short of breath. She is lethargic and sleepy. She is arousable and she is communicating. Denies having any chest pain. No noted trauma. No noted swelling lower extremities. Otherwise, the history is essentially limited. Based on a long-term records, no focal neurological deficits, no headaches, no nausea vomiting or diarrhea. No aspiration. No falls. 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 History of Any Multi-Drug Resistant Organisms: MRSA Date of last positivie culture/infection: february 2021 MDRO Source:: urine Past Surgical History: Appendectomy, Back Surgery, Bowel Resection, Ear Surgery, Hysterectomy, Joint Replacement Additional Past Surgical History / Comment(s): Partial vulvectomy, TAD with unilateral oophorectomy, R colectomy, EGD, colonoscopy, total R knee arthroplasty, kyphoplasty/bx, pain procedures, bilateral myringotomy/tubes. Past Anesthesia/Blood Transfusion Reactions: No Reported Reaction Additional Past Anesthesia/Blood Transfusion Reaction / Comment(s): . Past Psychological History: ADD/ADHD, Anxiety, Depression Smoking Status: Former smoker Past Alcohol Use History: None Reported Past Drug Use History: None Reported - Past Family History Father Family Medical History: Cancer, COPD Additional Family Medical History / Comment(s): COLON cancer. Mother Family Medical History: Cancer Additional Family Medical History / Comment(s): ESOPHAGUS cancer. Sister(s) Family Medical History: Cancer Additional Family Medical History / Comment(s): CERVICAL cancer, basal cell cancer. Medications and Allergies Home Medications Medication Instructions Recorded Confirmed Type DULoxetine HCL [Cymbalta] 30 mg PO DAILY 01/15/21 12/23/22 History Montelukast [Singulair] 10 mg PO HS 02/19/21 12/23/22 History Ferrous Sulfate [Iron (65 MG 325 mg PO DAILY 07/04/21 12/23/22 History Elemental)] Magnesium Oxide [Mag-Ox] 200 mg PO DAILY 07/14/21 12/23/22 History Meloxicam 15 mg PO DAILY 08/05/21 12/23/22 History Cetirizine HCl 10 mg PO DAILY 04/20/22 12/23/22 History Albuterol Sulfate [Ventolin HFA] 2 puff INHALATION RT-Q6H PRN 08/24/22 12/23/22 History Budesonide [Pulmicort] 0.5 mg INHALATION RT-BID 09/19/22 12/23/22 History Formoterol Fumarate [Perforomist] 20 mcg INHALATION RT-BID 09/19/22 12/23/22 History Ipratropium-Albuterol Nebulize 3 ml INHALATION RT-QID 09/19/22 12/23/22 History [Duoneb 0.5 mg-3 mg/3 ml Soln] Theophylline 24 Hour [Sekou-24] 400 mg PO DAILY 09/19/22 12/23/22 History Verapamil HCl [Verapamil ER] 120 mg PO DAILY 09/19/22 12/23/22 History rOPINIRole HCL [Requip] 4 mg PO HS 09/19/22 12/23/22 History Famotidine [Pepcid] 20 mg PO BID #60 tablet 12/18/22 12/23/22 Rx Furosemide [Lasix] 20 mg PO BID 30 Days #60 tab 12/18/22 12/23/22 Rx Ipratropium-Albuterol Nebulize 3 ml INHALATION RT-Q2H PRN each 12/18/22 12/23/22 Rx [Duoneb 0.5 mg-3 mg/3 ml Soln] predniSONE See Taper PO DIRECTED 12/23/22 12/23/22 History ALPRAZolam [Xanax] 0.25 mg PO Q6H PRN #4 tab 12/29/22 Rx Acetaminophen Tab [Tylenol] 1,000 mg PO Q6HR PRN tab 12/29/22 Rx Albuterol Inhaler [Ventolin Hfa 2 puff INHALATION RT-QID each 12/29/22 Rx Inhaler] Doxycycline [Vibramycin] 100 mg PO BID 7 Days #14 cap 12/29/22 Rx INSULIN ASPART (NovoLOG) [NovoLOG 0 unit SQ ACHS each 12/29/22 Rx (formulary)] Tiotropium 2.5 Mcg/Puff [Spiriva 2 puff INHALATION RT-DAILY each 12/29/22 Rx Respimat 2.5 Mcg] Tobra-Dexamet 0.3-0.1% Eye Adelita 2 drops RIGHT EYE Q4HR ml 12/29/22 Rx [Tobradex Ophth Susp] carvediloL [Coreg] 6.25 mg PO BID-W/MEALS tab 12/29/22 Rx Allergies Allergy/AdvReac Type Severity Reaction Status Date / Time infliximab [From Remicade] Allergy Dyspnea/HIV Verified 01/04/23 12:46 ES propoxyphene [From Darvon] Allergy Rash/Hives Verified 01/04/23 12:46 adhesive tape AdvReac "is hard Verified 01/04/23 12:46 on skin" Physical Exam Vitals: Vital Signs Temp Pulse Resp BP Pulse Ox FiO2 01/04/23 14:00 85 20 127/57 99 01/04/23 13:14 80 01/04/23 12:56 78 01/04/23 12:40 40 01/04/23 12:35 97.7 F 76 18 120/67 96 Intake and Output 01/03/23 01/04/23 01/04/23 22:59 06:59 14:59 Other: Weight 87 kg GENERAL EXAM: Somnolent currently on a BiPAP at a pressure of 15/6 cm of water with FiO2 of 40%. Lethargic yet arousable to sternal rub. She will go back to sleep if left unstimulated. She is short of breath, tachypneic and using some accessory muscles of breathing. morbidly obese and she also has obvious cushingoid features. 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 EYES: Normal reaction of pupils, equal size. NOSE: Clear with pink turbinates. THROAT: No erythema or exudates. NECK: No masses, no JVD. CHEST: No chest wall deformity. LUNGS: Equal air entry with bilateral end expiratory wheeze, diminished. The breath sounds are markedly diminished bilaterally and there is diffuse expiratory wheezing throughout the lung guzman. CVS: S1 and S2 normal with no audible murmur, regular rhythm. ABDOMEN: No hepatosplenomegaly, normal bowel sounds, no guarding or rigidity. SPINE: No scoliosis or deformity SKIN: No rashes CENTRAL NERVOUS SYSTEM: No focal deficits, tone is normal in all 4 extremities. Lethargic and somnolent related to CO2 narcosis EXTREMITIES: There is no peripheral edema. No clubbing, no cyanosis. Peripheral pulses are intact. Results - Laboratory Findings CBC and BMP: 01/04/23 13:00 01/04/23 13:00 ABG WBC 12.2 k/uL (3.8-10.6) H 01/04/23 13:00 RBC 4.60 m/uL (3.80-5.40) 01/04/23 13:00 Hgb 14.3 gm/dL (11.4-16.0) 01/04/23 13:00 Hct 46.3 % (34.0-46.0) H 01/04/23 13:00 MCV 100.5 fL (80.0-100.0) H 01/04/23 13:00 MCH 31.0 pg (25.0-35.0) 01/04/23 13:00 MCHC 30.8 g/dL (31.0-37.0) L 01/04/23 13:00 RDW 15.2 % (11.5-15.5) 01/04/23 13:00 Plt Count 127 k/uL (150-450) L 01/04/23 13:00 MPV 9.1 01/04/23 13:00 Neutrophils % 81 % 01/04/23 13:00 Lymphocytes % 9 % 01/04/23 13:00 Monocytes % 5 % 01/04/23 13:00 Eosinophils % 2 % 01/04/23 13:00 Basophils % 1 % 01/04/23 13:00 Neutrophils # 9.9 k/uL (1.3-7.7) H 01/04/23 13:00 Lymphocytes # 1.1 k/uL (1.0-4.8) 01/04/23 13:00 Monocytes # 0.6 k/uL (0-1.0) 01/04/23 13:00 Eosinophils # 0.2 k/uL (0-0.7) 01/04/23 13:00 Basophils # 0.2 k/uL (0-0.2) 01/04/23 13:00 Macrocytosis Slight 01/04/23 13:00 PT 9.5 sec (9.0-12.0) 01/04/23 13:00 INR 0.9 (<1.2) 01/04/23 13:00 APTT 21.8 sec (22.0-30.0) L 01/04/23 13:00 Sample Site lbrac 01/04/23 14:12 ABG pH 7.34 (7.35-7.45) L 01/04/23 14:12 ABG pCO2 84 mmHg (35-45) H* 01/04/23 14:12 ABG pO2 80 mmHg (83-108) L 01/04/23 14:12 ABG HCO3 45 mmol/L (21-25) H* 01/04/23 14:12 ABG Total CO2 48 mmol/L (19-24) H 01/04/23 14:12 ABG O2 Saturation 96.3 % (94-97) 01/04/23 14:12 ABG Base Excess 19.2 mmol/L 01/04/23 14:12 Parviz Test Yes 01/04/23 14:12 FiO2 40 % 01/04/23 14:12 Sodium 139 mmol/L (137-145) 01/04/23 13:00 Potassium 3.7 mmol/L (3.5-5.1) 01/04/23 13:00 Chloride 88 mmol/L (98-107) L 01/04/23 13:00 Carbon Dioxide 49 mmol/L (22-30) H* 01/04/23 13:00 Anion Gap 2 mmol/L 01/04/23 13:00 BUN 20 mg/dL (7-17) H 01/04/23 13:00 Creatinine 0.75 mg/dL (0.52-1.04) 01/04/23 13:00 Est GFR (CKD-EPI)AfAm >90 (>60 ml/min/1.73 sqM) 01/04/23 13:00 Est GFR (CKD-EPI)NonAf 82 (>60 ml/min/1.73 sqM) 01/04/23 13:00 Glucose 116 mg/dL (74-99) H 01/04/23 13:00 Calcium 8.4 mg/dL (8.4-10.2) 01/04/23 13:00 Magnesium 2.1 mg/dL (1.6-2.3) 01/04/23 13:00 Total Bilirubin 0.5 mg/dL (0.2-1.3) 01/04/23 13:00 AST 20 U/L (14-36) 01/04/23 13:00 ALT 25 U/L (4-34) 01/04/23 13:00 Alkaline Phosphatase 71 U/L (38-126) 01/04/23 13:00 Troponin I 0.034 ng/mL (0.000-0.034) 01/04/23 13:00 Total Protein 5.6 g/dL (6.3-8.2) L 01/04/23 13:00 Albumin 3.4 g/dL (3.5-5.0) L 01/04/23 13:00 PT/INR, D-dimer PT 9.5 sec (9.0-12.0) 01/04/23 13:00 INR 0.9 (<1.2) 01/04/23 13:00 Abnormal lab findings: Abnormal Labs 01/04/23 01/04/23 01/04/23 13:00 13:00 13:00 WBC 12.2 H Hct 46.3 H MCV 100.5 H MCHC 30.8 L Plt Count 127 L Neutrophils # 9.9 H APTT 21.8 L ABG pH ABG pCO2 ABG pO2 ABG HCO3 ABG Total CO2 Chloride 88 L Carbon Dioxide 49 H* BUN 20 H Glucose 116 H Total Protein 5.6 L Albumin 3.4 L 01/04/23 14:12 WBC Hct MCV MCHC Plt Count Neutrophils # APTT ABG pH 7.34 L ABG pCO2 84 H* ABG pO2 80 L ABG HCO3 45 H* ABG Total CO2 48 H Chloride Carbon Dioxide BUN Glucose Total Protein Albumin - Diagnostic Findings Chest x-ray: image reviewed Assessment and Plan Plan: Acute exacerbation of chronic obstructive pulmonary disease, with impending respiratory failure Acute on chronic hypoxic and hypercapnic respiratory failure currently on a BiPAP at a pressure of 15/6 cm of water with an FiO2 of 40% Advanced end-stage COPD and she is currently oxygen dependent. She has had multiple hospitals issue for COPD exacerbation and she has significant limitation performance and functional status due to advanced COPD. She is currently on oxygen at 3 -4L. Her last exacerbation was in November of 2022. The patient is on a combination of Perforomist and Pulmicort neb treatments twice a day, Spiriva one inhalation a day DuoNeb nebulized treatment 4 times a day, VPAP auto, oxygen.. The patient was also completing course of prednisone on outpatient basis. Acute on chronic hypoxemic respiratory failure secondary to above, note that she has chronic hypoxic so distended and she is on home oxygen at 3 L/m per nasal cannula History of a left upper lobe lesion measuring 18 x 13 mm in size. Being followe d in the outpatient setting, most recent CAT scan of the chest that was done on 09/18/2022 showed a similar left upper lobe pulmonary opacity measuring 16 mm and this was a groundglass opacity, likely inflammatory rather than being malignant. No mediastinal lymphadenopathy. History of CoVID in 19 pneumonia History of chronic lower extremity edema Hypertension Attention deficit hyperactivity disorder Rheumatoid arthritis Chronic back pain Former smoker Chronic steroid intake with cushingoid features Medical debility second above-mentioned comorbidities Plan Admit the patient to the intensive care unit Continue BiPAP at a pressure of 15/6 cm of water with FiO2 of 40% DuoNeb nebulized treatments [id number] IV Solu-Medrol 60 mg every 6 hours Perforomist and Pulmicort a blood treatments twice a day Monitor blood gases Monitor mental status May possibly need intubation and mechanical ventilation Check pro calcitonin level Empiric Antibiotic coverage with IV cefepime and vancomycin Monitor the blood sugar and put the patient has vascular insulin coverage Continue theophylline orally if she is able to take her medication dose of 400 mg on a daily basis Lasix 40 mg is IV every 24 hours Monitor serum bicarb and decide of Diamox as needed Conditions extremity predicted on we'll continue to follow make further recommendations based on her progress.
[2023-01-04] MEDS ORDERED: NALOXONE 0.4 MG/ML 1 ML VIAL IV PRN (15:28)
[2023-01-04 17:00] LABS: Glucose,Whole Blood 128 mg/dL (70-110)
[2023-01-04] MEDS ORDERED: ALBUTEROL HFA INHALER INHALATION PRN (17:04)
[2023-01-04] MEDS ORDERED: DEXTROSE 50% SYRINGE 50 ML IVP PRN ×2 (17:06)
[2023-01-04] MEDS ORDERED: VANCOMYCIN IV PER PHARMACY 1 EACH MISC MISCELLANE PRN (17:07)
--- NOTE | 2023-01-04 17:09 | P.HPIM ---
History of Present Illness This is a pleasant 67 years old female with past medical history of advanced COPD advanced COPD on home oxygen dependent on 3-4 L at all times, obstructive sleep apnea CPAP dependent nightly, diastolic CHF hypertension, iron deficiency anemia, rheumatoid arthritis, and chronic back pain who presented to the ER because of worsening shortness of breath for a few days duration Patient currently is lying in bed in the emergency room 6, with BiPAP machine on with parameters of 15/6, FiO2 of 40%. Patient is tachypneic breathing with direct about 34-37. Patient looks tired and she could not provide much information, she cannot talk but she is awake and oriented. She follows commands. She has minimal chest movement with expiratory wheezing. She denies any pain, no chest pain she denies any GI or urinary symptoms. She moves all extremities symmetrically. vitals reviewed and patient is afebrile. Mild Leukocytosis of 12.2, Mild Thrombocytopenia 127. Hemoglobin Normal. INR 0.9. VBG Showing High PCO2 of 84, Low pH of 7.3. BNP showing high carbon dioxide at 49, creatinine normal. Liver enzymes not elevated. Troponin negative. ProBNP is 301. Glucose 128. Chest x-ray reviewed by myself showing enlarged heart with COPD changes. Minimal chest congestion. Patient started on dexamethasone, albuterol. EKG showing normal sinus rhythm at [address]-T changes. 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 History of Any Multi-Drug Resistant Organisms: MRSA Date of last positivie culture/infection: february 2021 MDRO Source:: urine Past Surgical History: Appendectomy, Back Surgery, Bowel Resection, Ear Surgery, Hysterectomy, Joint Replacement Additional Past Surgical History / Comment(s): Partial vulvectomy, TAD with un ilateral oophorectomy, R colectomy, EGD, colonoscopy, total R knee arthroplasty, kyphoplasty/bx, pain procedures, bilateral myringotomy/tubes. Past Anesthesia/Blood Transfusion Reactions: No Reported Reaction Additional Past Anesthesia/Blood Transfusion Reaction / Comment(s): . Past Psychological History: ADD/ADHD, Anxiety, Depression Smoking Status: Former smoker Past Alcohol Use History: None Reported Past Drug Use History: None Reported - Past Family History Father Family Medical History: Cancer, COPD Additional Family Medical History / Comment(s): COLON cancer. Mother Family Medical History: Cancer Additional Family Medical History / Comment(s): ESOPHAGUS cancer. Sister(s) Family Medical History: Cancer Additional Family Medical History / Comment(s): CERVICAL cancer, basal cell cancer. Medications and Allergies Home Medications Medication Instructions Recorded Confirmed Type DULoxetine HCL [Cymbalta] 30 mg PO DAILY@0600 01/15/21 01/04/23 History Montelukast [Singulair] 10 mg PO HS 02/19/21 01/04/23 History Ferrous Sulfate [Iron (65 MG 325 mg PO DAILY 07/04/21 01/04/23 History Elemental)] Magnesium Oxide [Mag-Ox] 200 mg PO DAILY 07/14/21 01/04/23 History Meloxicam 15 mg PO DAILY@0600 08/05/21 01/04/23 History Cetirizine HCl 10 mg PO DAILY@0600 04/20/22 01/04/23 History Albuterol Sulfate [Ventolin HFA] 2 puff INHALATION RT-Q6H PRN 08/24/22 01/04/23 History Budesonide [Pulmicort] 0.5 mg INHALATION RT-BID 09/19/22 01/04/23 History Formoterol Fumarate [Perforomist] 20 mcg INHALATION RT-BID 09/19/22 01/04/23 History Ipratropium-Albuterol Nebulize 3 ml INHALATION RT-QID 09/19/22 01/04/23 History [Duoneb 0.5 mg-3 mg/3 ml Soln] Theophylline 24 Hour [Sekou-24] 400 mg PO DAILY@0600 09/19/22 01/04/23 History Verapamil HCl [Verapamil ER] 120 mg PO DAILY@0600 09/19/22 01/04/23 History rOPINIRole HCL [Requip] 4 mg PO HS 09/19/22 01/04/23 History Famotidine [Pepcid] 20 mg PO BID #60 tablet 12/18/22 01/04/23 Rx predniSONE 10 mg PO DAILY@0600 12/23/22 01/04/23 History ALPRAZolam [Xanax] 0.25 mg PO Q6H PRN #4 tab 12/29/22 01/04/23 Rx Acetaminophen Tab [Tylenol] 1,000 mg PO Q6HR PRN tab 12/29/22 01/04/23 Rx Albuterol Inhaler [Ventolin Hfa 2 puff INHALATION RT-QID each 12/29/22 01/04/23 Rx Inhaler] Doxycycline [Vibramycin] 100 mg PO BID 7 Days #14 cap 12/29/22 01/04/23 Rx Tiotropium 2.5 Mcg/Puff [Spiriva 2 puff INHALATION RT-DAILY each 12/29/22 01/04/23 Rx Respimat 2.5 Mcg] Tobra-Dexamet 0.3-0.1% Eye Adelita 2 drops RIGHT EYE Q4HR ml 12/29/22 01/04/23 Rx [Tobradex Ophth Susp] Furosemide [Lasix] 20 mg PO BID@0600,1200 01/04/23 01/04/23 History Insulin Lispro [humaLOG Kwikpen] See Protocol SQ ACHS 01/04/23 01/04/23 History carvediloL [Coreg] 6.25 mg PO BID 01/04/23 01/04/23 History Allergies Allergy/AdvReac Type Severity Reaction Status Date / Time infliximab [From Remicade] Allergy Dyspnea/HIV Verified 01/04/23 15:28 ES propoxyphene [From Darvon] Allergy Rash/Hives Verified 01/04/23 15:28 adhesive tape AdvReac "is hard Verified 01/04/23 15:28 on skin" Physical Exam Vitals: Vital Signs Temp Pulse Resp BP Pulse Ox FiO2 01/04/23 14:50 82 20 139/71 97 01/04/23 14:00 85 20 127/57 99 01/04/23 13:14 80 01/04/23 12:56 78 01/04/23 12:40 40 01/04/23 12:35 97.7 F 76 18 120/67 96 Intake and Output 01/03/23 01/04/23 01/04/23 22:59 06:59 14:59 Other: Weight 87 kg GENERAL: The patient is alert and oriented x3, not in any acute distress. Obese HEENT: Pupils are round and equally reacting to light. EOMI. No scleral icterus. No conjunctival pallor. Normocephalic, atraumatic. No pharyngeal erythema. No thyromegaly. CARDIOVASCULAR: S1 and S2 present. No murmurs, rubs, or gallops. -PULMONARY: barrel chest with limited air entry and expiratory wheezing ABDOMEN: Soft, nontender, nondistended, normoactive bowel sounds. No palpable organomegaly. MUSCULOSKELETAL: No joint swelling or deformity. EXTREMITIES: No cyanosis, clubbing, or pedal edema. NEUROLOGICAL: Gross neurological examination did not reveal any focal deficits. SKIN: No rashes. no petechiae. Results CBC & Chem 7: 01/04/23 13:00 01/04/23 13:00 Labs: Abnormal Lab Results - Last 24 Hours (Table) 01/04/23 01/04/23 01/04/23 Range/Units 13:00 13:00 13:00 WBC 12.2 H (3.8-10.6) k/uL Hct 46.3 H (34.0-46.0) % MCV 100.5 H (80.0-100.0) fL MCHC 30.8 L (31.0-37.0) g/dL Plt Count 127 L (150-450) k/uL Neutrophils # 9.9 H (1.3-7.7) k/uL APTT 21.8 L (22.0-30.0) sec ABG pH (7.35-7.45) ABG pCO2 (35-45) mmHg ABG pO2 (83-108) mmHg ABG HCO3 (21-25) mmol/L ABG Total CO2 (19-24) mmol/L Chloride 88 L (98-107) mmol/L Carbon Dioxide 49 H* (22-30) mmol/L BUN 20 H (7-17) mg/dL Glucose 116 H (74-99) mg/dL Total Protein 5.6 L (6.3-8.2) g/dL Albumin 3.4 L (3.5-5.0) g/dL 01/04/23 Range/Units 14:12 WBC (3.8-10.6) k/uL Hct (34.0-46.0) % MCV (80.0-100.0) fL MCHC (31.0-37.0) g/dL Plt Count (150-450) k/uL Neutrophils # (1.3-7.7) k/uL APTT (22.0-30.0) sec ABG pH 7.34 L (7.35-7.45) ABG pCO2 84 H* (35-45) mmHg ABG pO2 80 L (83-108) mmHg ABG HCO3 45 H* (21-25) mmol/L ABG Total CO2 48 H (19-24) mmol/L Chloride (98-107) mmol/L Carbon Dioxide (22-30) mmol/L BUN (7-17) mg/dL Glucose (74-99) mg/dL Total Protein (6.3-8.2) g/dL Albumin (3.5-5.0) g/dL Assessment and Plan Assessment: Acute COPD exacerbation Acute on chronic hypoxic respiratory failure patient is normally at home on 3 L nasal cannula now on bipap Acute respiratory acidosis Acute on chronic hypercapnic respiratory failure Chronic leukocytosis History of COVID-19 pneumonia Benign essential hypertension History of her with osteoarthritis Chronic back pain Former smoker Plan: Continue oxygen supplementation Aggressive bronchopulmonary hygiene Continue breathing treatments Continue IV Solu-Medrol Continue doxycycline Consult pulmonary Continue oral Lasix 20 mg twice daily Labs and medication were reviewed.. Continue same treatment. Continue with symptomatic treatment. Resume home medication. Monitor labs and vitals. DVT and GI prophylaxis. Further recommendations as per clinical course of the patient DVT prophylaxis: Subcutaneous heparin GI Prophylaxis: Pepcid PT/OT: Pending Prognosis is guarded
[2023-01-04] MEDS: carvediloL 6.25 MG TAB PO SCH (17:20)
[2023-01-04] MEDS: INSULIN ASPART (NovoLOG) 100 UNIT/ML VIAL SQ SCH ×2 (17:20→20:42)
[2023-01-04] MEDS: methylPREDNISolone SOD SUCCI 125 MG/2 ML VIAL IV SCH (17:31)
[2023-01-04] MEDS: FUROSEMIDE 10 MG/ML 4 ML VIAL IV SCH (17:31)
[2023-01-04] MEDS: SODIUM CHLORIDE 0.9% 1,000 ML IV SCH (17:32)
[2023-01-04 17:43] LABS: Basophils % (A) 0 %; Eosinophils % (A) 0 %; HGB 13.1 gm/dL (11.4-16.0); Lymphocytes # (A) 0.6 k/uL (1.0-4.8); Lymphocytes % (A) 6 %; MCH 31.8 pg (25.0-35.0); MCV 99.4 fL (80.0-100.0); Macrocytosis Slight; Mean Platelet Volume 9.2; Monocytes # (A) 0.2 k/uL (0-1.0); Monocytes % (A) 2 %; Neutrophils # (A) 9.8 k/uL (1.3-7.7); Neutrophils % (A) 91 %; Platelet Count 127 k/uL (150-450); RBC 4.12 m/uL (3.80-5.40); RDW 15.7 % (11.5-15.5); WBC 10.8 k/uL (3.8-10.6)
[2023-01-04 17:58] LABS: Appearance,Urine Clear (Clear); Bacteria,Urine Rare /hpf; Bilirubin,Urine Negative (Negative); Blood,Urine Negative (Negative); Color,Urine Yellow; Glucose,Urine (UA) Negative (Negative); Hyaline Casts,Urine 13 /lpf (0-2); Ketones,Urine Negative (Negative); Leukocyte Esterase,Urine Large (Negative); Mucus,Urine Rare /hpf; Nitrite,Urine Negative (Negative); Protein,Urine Negative (Negative); RBC,Urine 6 /hpf (0-5); Specific Gravity,Urine 1.011 (1.001-1.035); Urobilinogen,Urine <2.0 mg/dL (<2.0); WBC,Urine 8 /hpf (0-5)
[2023-01-04] MEDS ORDERED: VANCOMYCIN 1,500 MG in SODIUM CHLORIDE 0.9% 500 ML 500 ML IVPB SCH (18:00)
[2023-01-04 18:01] LABS: African American GFR (CKD) >90 (>60 ml/min/1.73 sqM); Blood Urea Nitrogen 23 mg/dL (7-17); Calcium 8.4 mg/dL (8.4-10.2); Chloride 90 mmol/L (98-107); Glucose 125 mg/dL (74-99); Magnesium 2.2 mg/dL (1.6-2.3); Non-African American GFR(CKD) 89 (>60 ml/min/1.73 sqM); Potassium 4.3 mmol/L (3.5-5.1); Sodium 136 mmol/L (137-145)
[2023-01-04 18:07] LABS: Anion Gap 1 mmol/L
[2023-01-04 18:10] LABS: Carbon Dioxide 45 mmol/L (22-30)
[2023-01-04] MEDS ORDERED: IPRATROPIUM-ALBUTEROL 3 ML NEB INHALATION SCH (20:00)
[2023-01-04] MEDS ORDERED: ALBUTEROL HFA INHALER INHALATION SCH (20:00)
[2023-01-04] MEDS ORDERED: IPRATROPIUM 0.5 MG/2.5 ML NEBU INHALATION SCH (20:00)
[2023-01-04] MEDS: ALBUTEROL NEBULIZED 2.5 MG/3 ML INHALATION SCH (20:26)
[2023-01-04] MEDS: FORMOTEROL FUMARATE 20 MCG/2 ML NEBU INHALATION SCH (20:26)
[2023-01-04 20:28] LABS: Glucose,Whole Blood 145 mg/dL (70-110)
[2023-01-04] MEDS: BUDESONIDE 0.5 MG/2 ML NEBU INHALATION SCH (20:29)
[2023-01-04] MEDS: CEFEPIME 2 GM in SODIUM CHLORIDE 0.9% 100 ML IVPB SCH (20:45)
[2023-01-04] MEDS: MONTELUKAST 10 MG TAB PO SCH (20:46)
[2023-01-04] MEDS: DOXYCYCLINE 100 MG CAP PO SCH (20:46)
[2023-01-04] MEDS: rOPINIRole HCL 4 MG TABLET PO SCH (20:46)
[2023-01-04] MEDS: FAMOTIDINE 20 MG/2 ML VIAL IV SCH (20:46)
[2023-01-04] MEDS: HEPARIN SODIUM,PORCINE/PF 5,000 UNIT/0.5 ML SYRINGE SQ SCH (20:46)
[2023-01-04] MEDS: ACETAMINOPHEN TAB 500 MG TAB PO PRN (20:49)
[2023-01-04] MEDS: ALPRAZolam 0.25 MG TAB PO PRN (21:45)
[2023-01-05] MEDS: methylPREDNISolone SOD SUCCI 125 MG/2 ML VIAL IV SCH ×5 (00:06→22:59)
[2023-01-05 04:05] LABS: Basophils % (A) 0 %; Eosinophils % (A) 0 %; HGB 12.3 gm/dL (11.4-16.0); Lymphocytes # (A) 0.5 k/uL (1.0-4.8); Lymphocytes % (A) 8 %; MCH 31.5 pg (25.0-35.0); MCHC 31.5 g/dL (31.0-37.0); Macrocytosis Slight; Mean Platelet Volume 9.7; Monocytes # (A) 0.1 k/uL (0-1.0); Monocytes % (A) 2 %; Neutrophils # (A) 5.8 k/uL (1.3-7.7); Neutrophils % (A) 90 %; Platelet Count 131 k/uL (150-450); RDW 15.1 % (11.5-15.5); WBC 6.5 k/uL (3.8-10.6)
[2023-01-05 04:14] LABS: African American GFR (CKD) >90 (>60 ml/min/1.73 sqM); Blood Urea Nitrogen 30 mg/dL (7-17); Chloride 88 mmol/L (98-107); Glucose 205 mg/dL (74-99); Non-African American GFR(CKD) 84 (>60 ml/min/1.73 sqM); Potassium 3.8 mmol/L (3.5-5.1); Sodium 138 mmol/L (137-145)
[2023-01-05 04:20] LABS: Anion Gap 3 mmol/L
[2023-01-05 04:22] LABS: Carbon Dioxide 47 mmol/L (22-30)
[2023-01-05] MEDS ORDERED: Potassium Replacement Protocol 1 EACH MISC MISCELLANE PRN (05:16)
[2023-01-05] MEDS ORDERED: POTASSIUM CHLORIDE ER 20 MEQ TAB.ER PO SCH (06:00)
[2023-01-05] MEDS ORDERED: FUROSEMIDE 20 MG TAB PO SCH (06:00)
[2023-01-05] MEDS: THEOPHYLLINE 24 HOUR 400 MG CAP.ER.24H PO SCH (06:10)
[2023-01-05] MEDS: DULoxetine HCL 30 MG CAPSULE.DR PO SCH (06:10)
[2023-01-05] MEDS: VERAPAMIL SR 120 MG TABLET.ER PO SCH (06:10)
--- NOTE | 2023-01-05 06:25 | P.PN ---
Subjective This is a pleasant 67 years old female with past medical history of advanced COPD advanced COPD on home oxygen dependent on 3-4 L at all times, obstructive sleep apnea CPAP dependent nightly, diastolic CHF hypertension, iron deficiency anemia, rheumatoid arthritis, and chronic back pain who presented to the ER because of worsening shortness of breath for a few days duration Patient currently is lying in bed in the emergency room 6, with BiPAP machine on with parameters of 15/6, FiO2 of 40%. Patient is tachypneic breathing with direct about 34-37. Patient looks tired and she could not provide much information, she cannot talk but she is awake and oriented. She follows commands. She has minimal chest movement with expiratory wheezing. She denies any pain, no chest pain she denies any GI or urinary symptoms. She moves all extremities symmetrically. vitals reviewed and patient is afebrile. Mild Leukocytosis of 12.2, Mild Thrombocytopenia 127. Hemoglobin Normal. INR 0.9. VBG Showing High PCO2 of 84, Low pH of 7.3. BNP showing high carbon dioxide at 49, creatinine normal. Liver enzymes not elevated. Troponin negative. ProBNP is 301. Glucose 128. Chest x-ray reviewed by myself showing enlarged heart with COPD changes. Mini mal chest congestion. Patient started on dexamethasone, albuterol. EKG showing normal sinus rhythm at [address]-T changes. 01/05/2023 Patient remains in the ICU, she required BiPAP all the ninth yesterday except for one hour she got some rest. Today patient showed significant improvement, she is more alert awake, pleasant. Her mentation is back to normal. Her breathing is also improving with decrease respiratory rate into 18-20, per to more than 30 yesterday. Repeat chest x-ray looks similar findings to yesterday with no obvious infiltrate or consolidation. The heart is mildly enlarged, just x-ray reviewed by myself. Other vitals and labs looks stable. pro-calcitonin is slightly elevated at 0.20 She is currently receiving IV Solu-Medrol 60 mg as well as broad-spectrum antibiotics with vancomycin and cefepime Until doxycycline. Also she is on IV Lasix daily. Review of systems CONSTITUTIONAL: No fever, no malaise, no fatigue. HEENT: No recent visual problems or hearing problems. Denied any sore throat. CARDIOVASCULAR: No orthopnea, PND, no palpitations, no syncope. GASTROINTESTINAL: No diarrhea, no nausea, no vomiting, no abdominal pain. Normoactive bowel sounds. NEUROLOGICAL: No headaches, no weakness, no numbness. HEMATOLOGICAL: Denies any bleeding or petechiae. Active Medications Generic Name Dose Route Start Last Admin Trade Name Freq PRN Reason Stop Dose Admin Acetaminophen 1,000 mg 01/04/23 17:04 01/04/23 20:49 Acetaminophen Tab 500 Mg Tab PO 1,000 mg Q6HR PRN Administration Fever and/ or Pain Albuterol Sulfate 2.5 mg 01/04/23 20:00 01/04/23 20:26 Albuterol Nebulized 2.5 Mg/3 Ml INHALATION 2.5 mg RT-QID LATESHA Administration Albuterol Sulfate 2.5 mg 01/04/23 17:08 Albuterol Nebulized 2.5 Mg/3 Ml INHALATION RT-Q2H PRN Shortness Of Breath Or Wheezing Alprazolam 0.25 mg 01/04/23 17:04 01/04/23 21:45 Alprazolam 0.25 Mg Tab PO 0.25 mg Q6H PRN Administration Anxiety Budesonide 0.5 mg 01/04/23 20:00 01/04/23 20:29 Budesonide 0.5 Mg/2 Ml Nebu INHALATION 0.5 mg RT-BID LATESHA Administration Carvedilol 6.25 mg 01/04/23 17:30 01/04/23 17:20 Carvedilol 6.25 Mg Tab PO Not Given BID-W/MEALS LATESHA Dextrose/Water 25 ml 01/04/23 17:06 Dextrose 50% Syringe 50 Ml IVP PER PROTOCOL PRN Hypoglycemia Protocol Dextrose/Water 50 ml 01/04/23 17:06 Dextrose 50% Syringe 50 Ml IVP PER PROTOCOL PRN Hypoglycemia Protocol Doxycycline Monohydrate 100 mg 01/04/23 21:00 01/04/23 20:46 Doxycycline 100 Mg Cap PO 01/06/23 12:00 100 mg BID LATESHA Administration Protocol Duloxetine HCl 30 mg 01/05/23 06:00 01/05/23 06:10 Duloxetine Hcl 30 Mg Capsule. PO 30 mg DAILY@0600 [facility]ES[facility] Administration Famotidine 20 mg 01/04/23 21:00 01/04/23 20:46 Famotidine 20 Mg/2 Ml Vial IV 20 mg Q12HR LATESHA Administration Formoterol Fumarate 20 mcg 01/04/23 20:00 01/04/23 20:26 Formoterol Fumarate 20 Mcg/2 Ml Nebu INHALATION 20 mcg RT-BID LATESHA Administration Furosemide 40 mg 01/04/23 17:15 01/04/23 17:31 Furosemide 10 Mg/Ml 4 Ml Vial IV 40 mg DAILY LATESHA Administration Heparin Sodium (Porcine) 5,000 unit 01/04/23 21:00 01/04/23 20:46 Heparin Sodium,Porcine/Pf 5,000 Unit/0.5 Ml Syringe SQ 5,000 unit Q12HR LATESHA Administration Sodium Chloride 1,000 mls @ 20 mls/hr 01/04/23 17:15 01/04/23 17:32 Saline 0.9% IV 20 mls/hr .Q24H LATESHA Administration Cefepime HCl 2 gm/ Sodium 100 mls @ 25 mls/hr 01/04/23 21:00 01/04/23 20:45 Chloride IVPB 25 mls/hr Q12HR LATESHA Administration Protocol Vancomycin HCl 1,500 mg/ 500 mls @ 167 mls/hr 01/04/23 18:00 01/04/23 18:12 Sodium Chloride IVPB 167 mls/hr Q16H LATESHA Administration Insulin Aspart 0 unit 01/04/23 17:30 01/04/23 20:42 Insulin Aspart (Novolog) 100 Unit/Ml Vial SQ Not Given ACHS LATESHA Protocol Methylprednisolone Sodium Succinate 60 mg 01/04/23 18:00 01/05/23 06:10 Methylprednisolone Sod Succi 125 Mg/2 Ml Vial IV 60 mg Q6HR LATESHA Administration Miscellaneous Information 1 each 01/05/23 05:16 Potassium Replacement Protocol 1 Each Misc MISCELLANE DAILY PRN Per Protocol Protocol Montelukast Sodium 10 mg 01/04/23 21:00 01/04/23 20:46 Montelukast 10 Mg Tab PO 10 mg HS LATESHA Administration Naloxone HCl 0.2 mg 01/04/23 15:28 Naloxone 0.4 Mg/Ml 1 Ml Vial IV Q2M PRN Opioid Reversal Ropinirole HCl 4 mg 01/04/23 21:00 01/04/23 20:46 Ropinirole Hcl 4 Mg Tablet PO 4 mg HS LATESHA Administration Theophylline 400 mg 01/05/23 06:00 01/05/23 06:10 Theophylline 24 Hour 400 Mg Cap.Er.24h PO 400 mg DAILY@0600 [facility] Administration Verapamil HCl 120 mg 01/05/23 06:00 01/05/23 06:10 Verapamil Sr 120 Mg Tablet.Er PO 120 mg DAILY@0600 LATESHA Administration Objective - Vital Signs Vital signs: Vital Signs Temp 97.9 F 01/05/23 04:00 Pulse 80 01/05/23 05:00 Resp 24 01/05/23 05:00 BP 125/65 01/05/23 05:00 Pulse Ox 95 01/05/23 05:00 FiO2 40 01/05/23 04:00 Intake & Output 01/04/23 01/04/23 01/05/23 06:59 18:59 06:59 Intake Total 500 140 Output Total 475 1105 Balance 25 -965 Weight 87 kg Intake: IV 500 140 0.9 carrier 40 Cefepime 2 gm In Sodium 100 Chloride 0.9% 100 ml @ 25 mls/hr IVPB Q12HR [facility] Rx #:[id number] Vancomycin 1,500 mg In 500 Sodium Chloride 0.9% 500 ml 500 ml @ 167 mls/hr IVPB Q16H [facility]ESHA Rx#: [id number] Output: Urine 475 1105 Other: Voiding Method Indwelling Catheter Indwelling Catheter - Exam -GENERAL: The patient is alert and oriented x3, not in any acute distress. Well developed, well nourished. more awake and comfortable HEENT: Pupils are round and equally reacting to light. EOMI. No scleral icterus. No conjunctival pallor. Normocephalic, atraumatic. No pharyngeal erythema. No thyromegaly. CARDIOVASCULAR: S1 and S2 present. No murmurs, rubs, or gallops. -PULMONARY: Chest is clear to auscultation, no wheezing or crackles. Gastric technique, slightly better air entry ABDOMEN: Soft, nontender, nondistended, normoactive bowel sounds. No palpable organomegaly. MUSCULOSKELETAL: No joint swelling or deformity. EXTREMITIES: No cyanosis, clubbing, or pedal edema. NEUROLOGICAL: Gross neurological examination did not reveal any focal deficits. SKIN: No rashes. no petechiae. - Labs CBC & Chem 7: 01/05/23 03:35 01/05/23 03:35 Labs: Abnormal Lab Results - Last 24 Hours (Table) 01/04/23 01/04/23 01/04/23 Range/Units 13:00 13:00 13:00 WBC 12.2 H (3.8-10.6) k/uL Hct 46.3 H (34.0-46.0) % MCV 100.5 H (80.0-100.0) fL MCHC 30.8 L (31.0-37.0) g/dL RDW (11.5-15.5) % Plt Count 127 L (150-450) k/uL Neutrophils # 9.9 H (1.3-7.7) k/uL Lymphocytes # (1.0-4.8) k/uL APTT 21.8 L (22.0-30.0) sec ABG pH (7.35-7.45) ABG pCO2 (35-45) mmHg ABG pO2 (83-108) mmHg ABG HCO3 (21-25) mmol/L ABG Total CO2 (19-24) mmol/L Sodium (137-145) mmol/L Chloride 88 L (98-107) mmol/L Carbon Dioxide 49 H* (22-30) mmol/L BUN 20 H (7-17) mg/dL Glucose 116 H (74-99) mg/dL POC Glucose (mg/dL) (70-110) mg/dL Calcium (8.4-10.2) mg/dL Total Protein 5.6 L (6.3-8.2) g/dL Albumin 3.4 L (3.5-5.0) g/dL Procalcitonin (0.02-0.09) ng/mL Ur Leukocyte Esterase (Negative) Urine RBC (0-5) /hpf Urine WBC (0-5) /hpf Urine Bacteria (None) /hpf Hyaline Casts (0-2) /lpf Urine Mucus (None) /hpf 01/04/23 01/04/23 01/04/23 Range/Units 14:12 16:58 17:15 WBC 10.8 H (3.8-10.6) k/uL Hct (34.0-46.0) % MCV (80.0-100.0) fL MCHC (31.0-37.0) g/dL RDW 15.7 H (11.5-15.5) % Plt Count 127 L (150-450) k/uL Neutrophils # 9.8 H (1.3-7.7) k/uL Lymphocytes # 0.6 L (1.0-4.8) k/uL APTT (22.0-30.0) sec ABG pH 7.34 L (7.35-7.45) ABG pCO2 84 H* (35-45) mmHg ABG pO2 80 L (83-108) mmHg ABG HCO3 45 H* (21-25) mmol/L ABG Total CO2 48 H (19-24) mmol/L Sodium (137-145) mmol/L Chloride (98-107) mmol/L Carbon Dioxide (22-30) mmol/L BUN (7-17) mg/dL Glucose (74-99) mg/dL POC Glucose (mg/dL) 128 H (70-110) mg/dL Calcium (8.4-10.2) mg/dL Total Protein (6.3-8.2) g/dL Albumin (3.5-5.0) g/dL Procalcitonin (0.02-0.09) ng/mL Ur Leukocyte Esterase (Negative) Urine RBC (0-5) /hpf Urine WBC (0-5) /hpf Urine Bacteria (None) /hpf Hyaline Casts (0-2) /lpf Urine Mucus (None) /hpf 01/04/23 01/04/23 01/04/23 Range/Units 17:15 17:15 17:31 WBC (3.8-10.6) k/uL Hct (34.0-46.0) % MCV (80.0-100.0) fL MCHC (31.0-37.0) g/dL RDW (11.5-15.5) % Plt Count (150-450) k/uL Neutrophils # (1.3-7.7) k/uL Lymphocytes # (1.0-4.8) k/uL APTT (22.0-30.0) sec ABG pH (7.35-7.45) ABG pCO2 (35-45) mmHg ABG pO2 (83-108) mmHg ABG HCO3 (21-25) mmol/L ABG Total CO2 (19-24) mmol/L Sodium 136 L (137-145) mmol/L Chloride 90 L (98-107) mmol/L Carbon Dioxide 45 H* (22-30) mmol/L BUN 23 H (7-17) mg/dL Glucose 125 H (74-99) mg/dL POC Glucose (mg/dL) (70-110) mg/dL Calcium (8.4-10.2) mg/dL Total Protein (6.3-8.2) g/dL Albumin (3.5-5.0) g/dL Procalcitonin 0.20 H (0.02-0.09) ng/mL Ur Leukocyte Esterase Large H (Negative) Urine RBC 6 H (0-5) /hpf Urine WBC 8 H (0-5) /hpf Urine Bacteria Rare H (None) /hpf Hyaline Casts 13 H (0-2) /lpf Urine Mucus Rare H (None) /hpf 01/04/23 01/05/23 01/05/23 Range/Units 20:27 03:35 03:35 WBC (3.8-10.6) k/uL Hct (34.0-46.0) % MCV (80.0-100.0) fL MCHC (31.0-37.0) g/dL RDW (11.5-15.5) % Plt Count 131 L (150-450) k/uL Neutrophils # (1.3-7.7) k/uL Lymphocytes # 0.5 L (1.0-4.8) k/uL APTT (22.0-30.0) sec ABG pH (7.35-7.45) ABG pCO2 (35-45) mmHg ABG pO2 (83-108) mmHg ABG HCO3 (21-25) mmol/L ABG Total CO2 (19-24) mmol/L Sodium (137-145) mmol/L Chloride 88 L (98-107) mmol/L Carbon Dioxide 47 H* (22-30) mmol/L BUN 30 H (7-17) mg/dL Glucose 205 H (74-99) mg/dL POC Glucose (mg/dL) 145 H (70-110) mg/dL Calcium 8.0 L (8.4-10.2) mg/dL Total Protein (6.3-8.2) g/dL Albumin (3.5-5.0) g/dL Procalcitonin (0.02-0.09) ng/mL Ur Leukocyte Esterase (Negative) Urine RBC (0-5) /hpf Urine WBC (0-5) /hpf Urine Bacteria (None) /hpf Hyaline Casts (0-2) /lpf Urine Mucus (None) /hpf Assessment and Plan Assessment: Acute COPD exacerbation Acute on chronic hypoxic respiratory failure patient is normally at home on 3 L nasal cannula now on bipap Acute respiratory acidosis Acute on chronic hypercapnic respiratory failure Chronic leukocytosis History of COVID-19 pneumonia Benign essential hypertension History of her with osteoarthritis Chronic back pain Former smoker Plan: Continue oxygen supplementation Aggressive bronchopulmonary hygiene Continue with BiPAP as needed Continue breathing treatments Continue IV Solu-Medrol Continue doxycycline Consult pulmonary team Continue IV Lasix 40 mg daily Labs and medication were reviewed.. Continue same treatment. Continue with symptomatic treatment. Resume home medication. Monitor labs and vitals. DVT and GI prophylaxis. Further recommendations as per clinical course of the patient DVT prophylaxis: Subcutaneous heparin GI Prophylaxis: Pepcid PT/OT: Pending Prognosis is guarded
[2023-01-05 06:42] LABS: Glucose,Whole Blood 148 mg/dL (70-110)
[2023-01-05] MEDS: INSULIN ASPART (NovoLOG) 100 UNIT/ML VIAL SQ SCH ×4 (06:46→20:22)
--- NOTE | 2023-01-05 07:08 | XR ---
EXAMINATION TYPE: XR chest 1V DATE OF EXAM: 01/05/2023 COMPARISON: 01/04/2023 HISTORY: Shortness of breath TECHNIQUE: Single frontal view of the chest is obtained. FINDINGS: There is no focal air space opacity, pleural effusion, or pneumothorax seen. The cardiac silhouette size is mildly. The osseous structures are intact. IMPRESSION: No acute process.
[2023-01-05] MEDS: FUROSEMIDE 10 MG/ML 4 ML VIAL IV SCH (08:01)
[2023-01-05] MEDS: FAMOTIDINE 20 MG/2 ML VIAL IV SCH (08:01)
[2023-01-05] MEDS: CEFEPIME 2 GM in SODIUM CHLORIDE 0.9% 100 ML IVPB SCH ×2 (08:01→20:17)
[2023-01-05] MEDS: DOXYCYCLINE 100 MG CAP PO SCH (08:02)
[2023-01-05] MEDS: HEPARIN SODIUM,PORCINE/PF 5,000 UNIT/0.5 ML SYRINGE SQ SCH ×2 (08:02→20:15)
[2023-01-05] MEDS: carvediloL 6.25 MG TAB PO SCH ×2 (08:02→16:52)
[2023-01-05] MEDS: BUDESONIDE 0.5 MG/2 ML NEBU INHALATION SCH ×2 (08:19→20:19)
[2023-01-05] MEDS: FORMOTEROL FUMARATE 20 MCG/2 ML NEBU INHALATION SCH ×2 (08:19→20:19)
[2023-01-05] MEDS: ALBUTEROL NEBULIZED 2.5 MG/3 ML INHALATION SCH ×4 (08:19→20:19)
--- NOTE | 2023-01-05 09:44 | P.PN ---
Subjective Progress Note Date: 01/05/23 67-year-old female patient with advanced end-stage COPD with frequent hospitalizations was been listed and subsequently deactivated from lung transplant list at [facility], coming in for another exacerbation. The patient was discharged from the hospital on 01/25/2023 after having a prolonged hospitalization for COPD exacerbation and acute on top of chronic hypoxic and hypercapnic respiratory failure. Note that the patient has advanced and chronic COPD, chronic action dependence maintain on oxygen at 3 L, chronic hypercapnic respiratory failure maintained on a VPAP auto with an EPAP minimum of 5 and a maximum pressure of 15 with a pressure support of 4. She has history of other comorbid conditions including hypertension, rheumatoid arthritis, chronic pain, including chronic back pain and previous history of infections with Covid 19 from which she recovered. She has also history was 2., Osteoarthritis, restless leg, gout and impaired hearing During this current admission, the patient presented to us from [facility] for worsening shortness of breath.. The patient was quite somnolent and lethargic and tachypneic at the time of emergency presentation. This started at the longterm facility. She was found to be lethargic while being on her BiPAP machine. The patient was arousable to sternal rub, yet she will go to sleep if left on terminated. Upon arrival she was immediately placed on a BiPAP. She was placed on a pressure of 12/6 cm of water. The generated tidal volume was low at around 150, and the patient had an elevated respiratory rate. Based on that, I modified the BiPAP to pressures of 15/6 cm of water. The patient is on FiO2 of 40%. Her tidal volume on a mechanical ventilator is around 250 mL. A chest x-ray was done that showed mild cardiomegaly without any Acute cardiac pulmonary process. The patient also had a blood gas that showed a pH of 7.34 wi th a pCO2 of 84 and pO2 of 80 and this was an FiO2 of 40% while being in the BiPAP. The echoes at 12.2 with a hemoglobin of 14 and a platelet count of 127. Serum bicarb is 49, sodium is at 139, potassium level is at 3.7. Troponin is at 0.04. LFTs are normal. On today's evaluation of 01/05/2023, the patient has done great progress. I was very much concerned and the patient is going to get intubated yesterday. I try not to intubated the patient has advanced COPD and we managed with noninvasive positive pressure ventilatory with BiPAP at a pressure of 15/6 cm of water. After she arrived to the ICU, she gradually improved. She became much more alert and awake. She was briefly taken off the BiPAP, however overnight, she was kept on a BiPAP for further support. This morning, she is off the BiPAP and she is currently on oxygen at 3 L. There is adequate air entry bilaterally al though the patient remains bronchospastic and wheezy. Chest x-ray does not show any acute abnormalities on today's evaluation. The patient otherwise is on fluids at KVO. She is on albuterol neb blotchiness 4 times a day, Pulmicort Respules 0.5 mg twice a day, IV Solu-Medrol 60 mg every 6 hours, she is also on a combination of cefepime, vancomycin that was started yesterday on an empiric basis for a possibility of underlying pneumonia. I think it's safe to discontinue the vancomycin at least for now. The primary care team also added doxycycline. The MUGA scan is at 6.5 with a hemoglobin 12.3 and a platelet count of 131. Serum bicarbs of 47. BUN is at 30 with a creatinine of 0.7 and a sodium level is at 138. She is afebrile. She is awake and alert. Should be able to eat and the patient was offered breakfast and I was told that she ate 100% of her breakfast. Objective - Vital Signs Vital signs: Vital Signs Temp 98.7 F 01/05/23 08:00 Pulse 76 01/05/23 09:00 Resp 30 H 01/05/23 09:00 BP 148/93 01/05/23 09:00 Pulse Ox 93 L 01/05/23 09:00 FiO2 40 01/05/23 08:19 Intake & Output 01/04/23 01/05/23 01/05/23 18:59 06:59 18:59 Intake Total 500 180 110 Output Total 475 1215 20 Balance 25 -1035 90 Weight 87 kg 85.8 kg Intake: IV 500 180 110 0.9 carrier 80 10 Cefepime 2 gm In Sodium 100 100 Chloride 0.9% 100 ml @ 25 mls/hr IVPB Q12HR [facility] Rx #:[id number] Vancomycin 1,500 mg In 500 Sodium Chloride 0.9% 500 ml 500 ml @ 167 mls/hr IVPB Q16H [facility] Rx#: [id number] Output: Urine 475 1215 20 Other: Voiding Method Indwelling Catheter Indwelling Catheter Indwelling Catheter - Exam GENERAL EXAM: Awake and alert and the patient is currently on 3 L of oxygen by nasal cannula, breathing is comfortable morbidly obese and she also has obvious cushingoid features. 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 EYES: Normal reaction of pupils, equal size. NOSE: Clear with pink turbinates. THROAT: No erythema or exudates. NECK: No masses, no JVD. CHEST: No chest wall deformity. LUNGS: Equal air entry with bilateral end expiratory wheeze, diminished. The breath sounds are markedly diminished bilaterally and there is diffuse expir atory wheezing throughout the lung guzman. CVS: S1 and S2 normal with no audible murmur, regular rhythm. ABDOMEN: No hepatosplenomegaly, normal bowel sounds, no guarding or rigidity. SPINE: No scoliosis or deformity SKIN: No rashes CENTRAL NERVOUS SYSTEM: No focal deficits, tone is normal in all 4 extremities. EXTREMITIES: There is no peripheral edema. No clubbing, no cyanosis. Peripheral pulses are intact. - Labs CBC & Chem 7: 01/05/23 03:35 01/05/23 03:35 Labs: Abnormal Lab Results - Last 24 Hours (Table) 01/04/23 01/04/23 01/04/23 Range/Units 13:00 13:00 13:00 WBC 12.2 H (3.8-10.6) k/uL Hct 46.3 H (34.0-46.0) % MCV 100.5 H (80.0-100.0) fL MCHC 30.8 L (31.0-37.0) g/dL RDW (11.5-15.5) % Plt Count 127 L (150-450) k/uL Neutrophils # 9.9 H (1.3-7.7) k/uL Lymphocytes # (1.0-4.8) k/uL APTT 21.8 L (22.0-30.0) sec ABG pH (7.35-7.45) ABG pCO2 (35-45) mmHg ABG pO2 (83-108) mmHg ABG HCO3 (21-25) mmol/L ABG Total CO2 (19-24) mmol/L Sodium (137-145) mmol/L Chloride 88 L (98-107) mmol/L Carbon Dioxide 49 H* (22-30) mmol/L BUN 20 H (7-17) mg/dL Glucose 116 H (74-99) mg/dL POC Glucose (mg/dL) (70-110) mg/dL Calcium (8.4-10.2) mg/dL Total Protein 5.6 L (6.3-8.2) g/dL Albumin 3.4 L (3.5-5.0) g/dL Procalcitonin (0.02-0.09) ng/mL Ur Leukocyte Esterase (Negative) Urine RBC (0-5) /hpf Urine WBC (0-5) /hpf Urine Bacteria (None) /hpf Hyaline Casts (0-2) /lpf Urine Mucus (None) /hpf 01/04/23 01/04/23 01/04/23 Range/Units 14:12 16:58 17:15 WBC 10.8 H (3.8-10.6) k/uL Hct (34.0-46.0) % MCV (80.0-100.0) fL MCHC (31.0-37.0) g/dL RDW 15.7 H (11.5-15.5) % Plt Count 127 L (150-450) k/uL Neutrophils # 9.8 H (1.3-7.7) k/uL Lymphocytes # 0.6 L (1.0-4.8) k/uL APTT (22.0-30.0) sec ABG pH 7.34 L (7.35-7.45) ABG pCO2 84 H* (35-45) mmHg ABG pO2 80 L (83-108) mmHg ABG HCO3 45 H* (21-25) mmol/L ABG Total CO2 48 H (19-24) mmol/L Sodium (137-145) mmol/L Chloride (98-107) mmol/L Carbon Dioxide (22-30) mmol/L BUN (7-17) mg/dL Glucose (74-99) mg/dL POC Glucose (mg/dL) 128 H (70-110) mg/dL Calcium (8.4-10.2) mg/dL Total Protein (6.3-8.2) g/dL Albumin (3.5-5.0) g/dL Procalcitonin (0.02-0.09) ng/mL Ur Leukocyte Esterase (Negative) Urine RBC (0-5) /hpf Urine WBC (0-5) /hpf Urine Bacteria (None) /hpf Hyaline Casts (0-2) /lpf Urine Mucus (None) /hpf 01/04/23 01/04/23 01/04/23 Range/Units 17:15 17:15 17:31 WBC (3.8-10.6) k/uL Hct (34.0-46.0) % MCV (80.0-100.0) fL MCHC (31.0-37.0) g/dL RDW (11.5-15.5) % Plt Count (150-450) k/uL Neutrophils # (1.3-7.7) k/uL Lymphocytes # (1.0-4.8) k/uL APTT (22.0-30.0) sec ABG pH (7.35-7.45) ABG pCO2 (35-45) mmHg ABG pO2 (83-108) mmHg ABG HCO3 (21-25) mmol/L ABG Total CO2 (19-24) mmol/L Sodium 136 L (137-145) mmol/L Chloride 90 L (98-107) mmol/L Carbon Dioxide 45 H* (22-30) mmol/L BUN 23 H (7-17) mg/dL Glucose 125 H (74-99) mg/dL POC Glucose (mg/dL) (70-110) mg/dL Calcium (8.4-10.2) mg/dL Total Protein (6.3-8.2) g/dL Albumin (3.5-5.0) g/dL Procalcitonin 0.20 H (0.02-0.09) ng/mL Ur Leukocyte Esterase Large H (Negative) Urine RBC 6 H (0-5) /hpf Urine WBC 8 H (0-5) /hpf Urine Bacteria Rare H (None) /hpf Hyaline Casts 13 H (0-2) /lpf Urine Mucus Rare H (None) /hpf 01/04/23 01/05/23 01/05/23 Range/Units 20:27 03:35 03:35 WBC (3.8-10.6) k/uL Hct (34.0-46.0) % MCV (80.0-100.0) fL MCHC (31.0-37.0) g/dL RDW (11.5-15.5) % Plt Count 131 L (150-450) k/uL Neutrophils # (1.3-7.7) k/uL Lymphocytes # 0.5 L (1.0-4.8) k/uL APTT (22.0-30.0) sec ABG pH (7.35-7.45) ABG pCO2 (35-45) mmHg ABG pO2 (83-108) mmHg ABG HCO3 (21-25) mmol/L ABG Total CO2 (19-24) mmol/L Sodium (137-145) mmol/L Chloride 88 L (98-107) mmol/L Carbon Dioxide 47 H* (22-30) mmol/L BUN 30 H (7-17) mg/dL Glucose 205 H (74-99) mg/dL POC Glucose (mg/dL) 145 H (70-110) mg/dL Calcium 8.0 L (8.4-10.2) mg/dL Total Protein (6.3-8.2) g/dL Albumin (3.5-5.0) g/dL Procalcitonin (0.02-0.09) ng/mL Ur Leukocyte Esterase (Negative) Urine RBC (0-5) /hpf Urine WBC (0-5) /hpf Urine Bacteria (None) /hpf Hyaline Casts (0-2) /lpf Urine Mucus (None) /hpf 01/05/23 Range/Units 06:41 WBC (3.8-10.6) k/uL Hct (34.0-46.0) % MCV (80.0-100.0) fL MCHC (31.0-37.0) g/dL RDW (11.5-15.5) % Plt Count (150-450) k/uL Neutrophils # (1.3-7.7) k/uL Lymphocytes # (1.0-4.8) k/uL APTT (22.0-30.0) sec ABG pH (7.35-7.45) ABG pCO2 (35-45) mmHg ABG pO2 (83-108) mmHg ABG HCO3 (21-25) mmol/L ABG Total CO2 (19-24) mmol/L Sodium (137-145) mmol/L Chloride (98-107) mmol/L Carbon Dioxide (22-30) mmol/L BUN (7-17) mg/dL Glucose (74-99) mg/dL POC Glucose (mg/dL) 148 H (70-110) mg/dL Calcium (8.4-10.2) mg/dL Total Protein (6.3-8.2) g/dL Albumin (3.5-5.0) g/dL Procalcitonin (0.02-0.09) ng/mL Ur Leukocyte Esterase (Negative) Urine RBC (0-5) /hpf Urine WBC (0-5) /hpf Urine Bacteria (None) /hpf Hyaline Casts (0-2) /lpf Urine Mucus (None) /hpf Assessment and Plan Plan: Acute exacerbation of chronic obstructive pulmonary disease, the patient's is improved on IPAP and currently she is on 3 L of oxygen by nasal cannula. She presented to us with a acute COPD exacerbation, CO2 narcosis, altered mentation and impending respiratory failure the patient is improved considerably. Cur rently she is off the BiPAP. Chest x-ray is clear. Acute on chronic hypoxic and hypercapnic respiratory failure , improved and currently she is on 3 L of oxygen by nasal cannula Advanced end-stage COPD and she is currently oxygen dependent. She has had multiple hospitals issue for COPD exacerbation and she has significant limitation performance and functional status due to advanced COPD. She is currently on oxygen at 3 -4L. Her last exacerbation was in November of 2022. The patient is on a combination of Perforomist and Pulmicort neb treatments twice a day, Spiriva one inhalation a day DuoNeb nebulized treatment 4 times a day, VPAP auto, oxygen.. The patient was also completing course of prednisone on outpatient basis. Acute on chronic hypoxemic respiratory failure secondary to above, note that she has chronic hypoxic so distended and she is on home oxygen at 3 L/m per nasal cannula History of a left upper lobe lesion measuring 18 x 13 mm in size. Being followed in the outpatient setting, most recent CAT scan of the chest that was done on 09/18/2022 showed a similar left upper lobe pulmonary opacity measuring 16 mm and this was a groundglass opacity, likely inflammatory rather than being malignant. No mediastinal lymphadenopathy. History of CoVID in 19 pneumonia History of chronic lower extremity edema Hypertension Attention deficit hyperactivity disorder Rheumatoid arthritis Chronic back pain Former smoker Chronic steroid intake with cushingoid features Medical debility second above-mentioned comorbidities Plan Keep the patient to the intensive care unit Continue BiPAP at a pressure of 15/6 cm of water with FiO2 of 40%, and this will be used on an off during the day and during sleep and overnight DuoNeb nebulized treatments [id number] IV Solu-Medrol 60 mg every 6 hours Perforomist and Pulmicort a blood treatments twice a day Add Spiriva one inhalation a day Discontinue vancomycin and doxycycline Check pro calcitonin level Monitor the blood sugar and put the patient has vascular insulin coverage Continue theophylline orally if she is able to take her medication dose of 400 mg on a daily basis Switch this patient to oral Lasix 40 mg by mouth daily Monitor serum bicarb and decide of Diamox as needed Conditions extremity predicted on we'll continue to follow make further recommendations based on her progress.
[2023-01-05] MEDS: ALPRAZolam 0.25 MG TAB PO PRN ×3 (09:47→22:59)
[2023-01-05] MEDS ORDERED: MD COMMUNICATION TO PHARMACY 1 EACH MISC PO ONE (09:55)
[2023-01-05 11:22] LABS: Glucose,Whole Blood 189 mg/dL (70-110)
[2023-01-05] MEDS: TIOTROPIUM 2.5 MCG INHALER INHALATION SCH (12:17)
[2023-01-05] MEDS ORDERED: ARTIFICIAL TEARS-HYPROMELLOSE DROPS 15 ML BTL BOTH EYES PRN (13:40)
[2023-01-05] MEDS: SODIUM CHLORIDE 0.9% 1,000 ML IV SCH (15:59)
[2023-01-05] MEDS: TOBRA-DEXAMET 0.3-0.1% OPHTH DROPS 2.5 ML BTL RIGHT EYE SCH ×3 (16:05→22:59)
[2023-01-05 16:11] LABS: Glucose,Whole Blood 143 mg/dL (70-110)
[2023-01-05 20:00] LABS: Glucose,Whole Blood 191 mg/dL (70-110)
[2023-01-05] MEDS: ACETAMINOPHEN TAB 500 MG TAB PO PRN (20:15)
[2023-01-05] MEDS: FAMOTIDINE 20 MG TAB PO SCH (20:15)
[2023-01-05] MEDS: MONTELUKAST 10 MG TAB PO SCH (20:18)
[2023-01-05] MEDS: rOPINIRole HCL 4 MG TABLET PO SCH (20:19)
[2023-01-05] MEDS ORDERED: DEXTROSE/WATER 1 250ML.BAG with DOPamine DRIP 800 MG IV SCH (22:45)
[2023-01-06] MEDS: ALBUTEROL NEBULIZED 2.5 MG/3 ML INHALATION PRN ×2 (00:07→03:56)
[2023-01-06] MEDS: TOBRA-DEXAMET 0.3-0.1% OPHTH DROPS 2.5 ML BTL RIGHT EYE SCH ×7 (05:00→23:51)
[2023-01-06 05:48] LABS: Basophils % (A) 0 %; Eosinophils % (A) 0 %; HCT 37.3 % (34.0-46.0); HGB 11.7 gm/dL (11.4-16.0); Lymphocytes # (A) 0.5 k/uL (1.0-4.8); Lymphocytes % (A) 3 %; MCH 31.6 pg (25.0-35.0); MCHC 31.4 g/dL (31.0-37.0); MCV 100.5 fL (80.0-100.0); Macrocytosis Slight; Mean Platelet Volume 10.5; Monocytes # (A) 0.4 k/uL (0-1.0); Monocytes % (A) 3 %; Neutrophils # (A) 14.1 k/uL (1.3-7.7); Neutrophils % (A) 94 %; Platelet Count 143 k/uL (150-450); RBC 3.71 m/uL (3.80-5.40)
[2023-01-06 06:01] LABS: Potassium 3.6 mmol/L (3.5-5.1)
[2023-01-06 06:02] LABS: African American GFR (CKD) >90 (>60 ml/min/1.73 sqM); Anion Gap 4 mmol/L; Blood Urea Nitrogen 41 mg/dL (7-17); Calcium 8.2 mg/dL (8.4-10.2); Chloride 96 mmol/L (98-107); Glucose 216 mg/dL (74-99); Non-African American GFR(CKD) 89 (>60 ml/min/1.73 sqM); Sodium 140 mmol/L (137-145)
[2023-01-06 06:14] LABS: Carbon Dioxide 40 mmol/L (22-30)
[2023-01-06] MEDS: DULoxetine HCL 30 MG CAPSULE.DR PO SCH (06:52)
[2023-01-06] MEDS: THEOPHYLLINE 24 HOUR 400 MG CAP.ER.24H PO SCH (06:52)
[2023-01-06] MEDS: carvediloL 6.25 MG TAB PO SCH ×2 (06:52→17:22)
[2023-01-06] MEDS: VERAPAMIL SR 120 MG TABLET.ER PO SCH (06:52)
[2023-01-06] MEDS: methylPREDNISolone SOD SUCCI 125 MG/2 ML VIAL IV SCH ×4 (06:53→23:50)
[2023-01-06 07:05] LABS: Glucose,Whole Blood 194 mg/dL (70-110)
[2023-01-06] MEDS: INSULIN ASPART (NovoLOG) 100 UNIT/ML VIAL SQ SCH ×4 (07:09→21:19)
--- NOTE | 2023-01-06 07:36 | XR ---
EXAMINATION TYPE: XR chest 1V portable DATE OF EXAM: 01/06/2023 5:44 AM COMPARISON: Chest radiograph from one day prior. TECHNIQUE: XR chest 1V portable Portable AP radiograph of the chest. CLINICAL INDICATION:Female, 67 years old with history of shortness of breath; FINDINGS: Lungs/Pleura: There is no evidence of pleural effusion, focal consolidation, or pneumothorax. Pulmonary vascularity: Unremarkable. Heart/mediastinum: Cardiomediastinal silhouette is unremarkable. Musculoskeletal: No acute osseous pathology. IMPRESSION: Stable exam, No acute cardiopulmonary disease/process.
--- NOTE | 2023-01-06 07:40 | P.PN ---
Subjective Progress Note Date: 01/06/23 67-year-old female patient with advanced end-stage COPD with frequent hospitalizations was been listed and subsequently deactivated from lung transplant list at [facility], coming in for another exacerbation. The patient was discharged from the hospital on 01/25/2023 after having a prolonged hospitalization for COPD exacerbation and acute on top of chronic hypoxic and hypercapnic respiratory failure. Note that the patient has advanced and chronic COPD, chronic action dependence maintain on oxygen at 3 L, chronic hypercapnic respiratory failure maintained on a VPAP auto with an EPAP minimum of 5 and a maximum pressure of 15 with a pressure support of 4. She has history of other comorbid conditions including hypertension, rheumatoid arthritis, chronic pain, including chronic back pain and previous history of infections with Covid 19 from which she recovered. She has also history was 2., Osteoarthritis, restless leg, gout and impaired hearing During this current admission, the patient presented to us from [facility] for worsening shortness of breath.. The patient was quite somnolent and lethargic and tachypneic at the time of emergency presentation. This started at the [place] [facility]. She was found to be lethargic while being on her BiPAP machine. The patient was arousable to sternal rub, yet she will go to sleep if left on terminated. Upon arrival she was immediately placed on a BiPAP. She was placed on a pressure of 12/6 cm of water. The generated tidal volume was low at around 150, and the patient had an elevated respiratory rate. Based on that, I modified the BiPAP to pressures of 15/6 cm of water. The patient is on FiO2 of 40%. Her tidal volume on a mechanical ventilator is around 250 mL. A chest x-ray was done that showed mild cardiomegaly without any Acute cardiac pulmonary process. The patient also had a blood gas that showed a pH of 7.34 wi th a pCO2 of 84 and pO2 of 80 and this was an FiO2 of 40% while being in the BiPAP. The echoes at 12.2 with a hemoglobin of 14 and a platelet count of 127. Serum bicarb is 49, sodium is at 139, potassium level is at 3.7. Troponin is at 0.04. LFTs are normal. On today's evaluation of 01/05/2023, the patient has done great progress. I was very much concerned and the patient is going to get intubated yesterday. I try not to intubated the patient has advanced COPD and we managed with noninvasive positive pressure ventilatory with BiPAP at a pressure of 15/6 cm of water. After she arrived to the ICU, she gradually improved. She became much more alert and awake. She was briefly taken off the BiPAP, however overnight, she was kept on a BiPAP for further support. This morning, she is off the BiPAP and she is currently on oxygen at 3 L. There is adequate air entry bilaterally al though the patient remains bronchospastic and wheezy. Chest x-ray does not show any acute abnormalities on today's evaluation. The patient otherwise is on fluids at KVO. She is on albuterol neb blotchiness 4 times a day, Pulmicort Respules 0.5 mg twice a day, IV Solu-Medrol 60 mg every 6 hours, she is also on a combination of cefepime, vancomycin that was started yesterday on an empiric basis for a possibility of underlying pneumonia. I think it's safe to discontinue the vancomycin at least for now. The primary care team also added doxycycline. The MUGA scan is at 6.5 with a hemoglobin 12.3 and a platelet count of 131. Serum bicarbs of 47. BUN is at 30 with a creatinine of 0.7 and a sodium level is at 138. She is afebrile. She is awake and alert. Should be able to eat and the patient was offered breakfast and I was told that she ate 100% of her breakfast. 01/06/2023, the patient is fully alert and awake and oriented. She is off the BiPAP and she is currently on oxygen at 3 L nasal cannula. No new complaints for now.Acute COPD exacerbation is being treated with a combination of albuterol nebulized treatments 4 times a day, Pulmicort Respules 0.5 mg twice a day, Perfo romist embolus treatments twice a day, theophylline 400 mg by mouth daily, IV Solu-Medrol which is still running at a dose of 60 mg IV every 6 hours. Her antibiotic coverage is with IV cefepime. The bloodwork from today shows a WBC count of 15 with a hemoglobin of 11.7 and a platelet count of 143. Bicarb is at 40. Sodiums of 140 with a potassium level of 3.6. Blood glucose is 216 and the calcium levels at 3.2. Clinically, the patient is doing well. No complaints patient should be able to transfer outside intensive care unit. Objective - Vital Signs Vital signs: Vital Signs Temp 98.2 F 01/06/23 00:00 Pulse 80 01/06/23 05:00 Resp 9 L 01/06/23 05:00 BP 130/62 01/06/23 05:00 Pulse Ox 95 01/06/23 05:00 FiO2 40 01/06/23 03:59 Intake & Output 01/05/23 01/06/23 01/06/23 18:59 06:59 18:59 Intake Total 220 210 Output Total 940 370 Balance -720 -160 Weight 87.1 kg Intake: IV 220 210 0.9 carrier 120 10 Cefepime 2 gm In Sodium 100 100 Chloride 0.9% 100 ml @ 25 mls/hr IVPB Q12HR [facility] Rx #:[id number] Sodium Chloride 0.9% 1, 100 000 ml @ 20 mls/hr IV . Q24H [facility] Rx#:[id number] Output: Urine 940 370 Other: Voiding Method Indwelling Catheter Indwelling Catheter # Bowel Movements 1 - Exam GENERAL EXAM: Awake and alert and the patient is currently on 3 L of oxygen by nasal cannula, breathing is comfortable morbidly obese and she also has obvious cushingoid features. 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 EYES: Normal reaction of pupils, equal size. NOSE: Clear with pink turbinates. THROAT: No erythema or exudates. NECK: No masses, no JVD. CHEST: No chest wall deformity. LUNGS: Equal air entry with bilateral end expiratory wheeze, diminished. The breath sounds are markedly diminished bilaterally and there is diffuse expir atory wheezing throughout the lung guzman. CVS: S1 and S2 normal with no audible murmur, regular rhythm. ABDOMEN: No hepatosplenomegaly, normal bowel sounds, no guarding or rigidity. SPINE: No scoliosis or deformity SKIN: No rashes CENTRAL NERVOUS SYSTEM: No focal deficits, tone is normal in all 4 extremities. EXTREMITIES: There is no peripheral edema. No clubbing, no cyanosis. Peripheral pulses are intact. - Labs CBC & Chem 7: 01/06/23 05:36 01/06/23 05:36 Labs: Abnormal Lab Results - Last 24 Hours (Table) 0301/05/23 01/05/23 Range/Units 11:21 16:09 19:58 WBC (3.8-10.6) k/uL RBC (3.80-5.40) m/uL MCV (80.0-100.0) fL Plt Count (150-450) k/uL Neutrophils # (1.3-7.7) k/uL Lymphocytes # (1.0-4.8) k/uL Chloride (98-107) mmol/L Carbon Dioxide (22-30) mmol/L BUN (7-17) mg/dL Glucose (74-99) mg/dL POC Glucose (mg/dL) 189 H 143 H 191 H (70-110) mg/dL Calcium (8.4-10.2) mg/dL 01/06/23 01/06/23 01/06/23 Range/Units 05:36 05:36 07:04 WBC 15.0 H (3.8-10.6) k/uL RBC 3.71 L (3.80-5.40) m/uL MCV 100.5 H (80.0-100.0) fL Plt Count 143 L (150-450) k/uL Neutrophils # 14.1 H (1.3-7.7) k/uL Lymphocytes # 0.5 L (1.0-4.8) k/uL Chloride 96 L (98-107) mmol/L Carbon Dioxide 40 H (22-30) mmol/L BUN 41 H (7-17) mg/dL Glucose 216 H (74-99) mg/dL POC Glucose (mg/dL) 194 H (70-110) mg/dL Calcium 8.2 L (8.4-10.2) mg/dL Assessment and Plan Plan: Acute exacerbation of chronic obstructive pulmonary disease, the patient's is improved on IPAP and currently she is on 3 L of oxygen by nasal cannula. She presented to us with a acute COPD exacerbation, CO2 narcosis, altered mentation and impending respiratory failure the patient is improved considerably. Currently she is off the BiPAP. The patient is utilizing BiPAP overnight and currently she is on 3 L of oxygen by nasal cannula. Much improved, no signs of any CO2 narcosis. Acute on chronic hypoxic and hypercapnic respiratory failure , improved and currently she is on 3 L of oxygen by nasal cannula Advanced end-stage COPD and she is currently oxygen dependent. She has had multiple hospitals issue for COPD exacerbation and she has significant limitation performance and functional status due to advanced COPD. She is currently on oxygen at 3 -4L. Her last exacerbation was in November of 2022. The patient is on a combination of Perforomist and Pulmicort neb treatments twice a day, theophylline and DuoNeb nebulized treatment 4 times a day, VPAP auto, oxygen. Acute on chronic hypoxemic respiratory failure secondary to above, note that she has chronic hypoxic so distended and she is on home oxygen at 3 L/m per nasal cannula History of a left upper lobe lesion measuring 18 x 13 mm in size. Being followed in the outpatient setting, most recent CAT scan of the chest that was done on 09/18/2022 showed a similar left upper lobe pulmonary opacity measuring 16 mm and this was a groundglass opacity, likely inflammatory rather than being malignant. No mediastinal lymphadenopathy. History of CoVID in 19 pneumonia History of chronic lower extremity edema Hypertension Attention deficit hyperactivity disorder Rheumatoid arthritis Chronic back pain Former smoker Chronic steroid intake with cushingoid features Medical debility second above-mentioned comorbidities Plan Patient is stable. The patient be able to transfer out of the intensive care unit. Continue BiPAP overnight, currently on 3 L O2 nasal cannula Continue BiPAP at a pressure of 15/6 cm of water with FiO2 of 40% overnight DuoNeb nebulized treatments [id number] IV Solu-Medrol 60 mg every 6 hours Perforomist and Pulmicort a blood treatments twice a day Theophylline 400 mg a day Monitor the blood sugar and put the patient has vascular insulin coverage Continue theophylline orally if she is able to take her medication dose of 400 mg on a daily basis Switch this patient to oral Lasix 40 mg by mouth daily Monitor serum bicarb and decide of Diamox as needed Conditions extremity predicted on we'll continue to follow make further recommendations based on her progress. Pro calcitonin level was at 0.2. Transfer this patient to medical surgical floor with remote telemetry.
[2023-01-06] MEDS: ALBUTEROL NEBULIZED 2.5 MG/3 ML INHALATION SCH ×2 (07:50→10:56)
[2023-01-06] MEDS: BUDESONIDE 0.5 MG/2 ML NEBU INHALATION SCH ×2 (07:50→19:38)
[2023-01-06] MEDS: TIOTROPIUM 2.5 MCG INHALER INHALATION SCH (07:51)
[2023-01-06] MEDS: FORMOTEROL FUMARATE 20 MCG/2 ML NEBU INHALATION SCH ×2 (07:51→19:38)
[2023-01-06] MEDS ORDERED: POTASSIUM BICARBONATE/CIT AC 20 MEQ TABLET.EFF NG-TUBE SCH (08:00)
[2023-01-06] MEDS: FAMOTIDINE 20 MG TAB PO SCH ×2 (09:09→21:19)
[2023-01-06] MEDS: HEPARIN SODIUM,PORCINE/PF 5,000 UNIT/0.5 ML SYRINGE SQ SCH ×2 (09:09→21:19)
[2023-01-06] MEDS: CEFEPIME 2 GM in SODIUM CHLORIDE 0.9% 100 ML IVPB SCH ×2 (09:09→21:18)
[2023-01-06] MEDS: FUROSEMIDE 40 MG TAB PO SCH (09:10)
[2023-01-06 12:33] LABS: Glucose,Whole Blood 117 mg/dL (70-110)
[2023-01-06] MEDS: ALBUTEROL HFA INHALER INHALATION SCH ×2 (15:22→19:38)
[2023-01-06 16:50] LABS: Glucose,Whole Blood 220 mg/dL (70-110)
[2023-01-06] MEDS: SODIUM CHLORIDE 0.9% 1,000 ML IV SCH (17:22)
[2023-01-06 20:39] LABS: Glucose,Whole Blood 208 mg/dL (70-110)
[2023-01-06] MEDS: MONTELUKAST 10 MG TAB PO SCH (21:19)
[2023-01-06] MEDS: rOPINIRole HCL 4 MG TABLET PO SCH (21:19)
--- NOTE | 2023-01-06 22:51 | P.PN ---
Subjective This is a pleasant 67 years old female with past medical history of advanced COPD advanced COPD on home oxygen dependent on 3-4 L at all times, obstructive sleep apnea CPAP dependent nightly, diastolic CHF hypertension, iron deficiency anemia, rheumatoid arthritis, and chronic back pain who presented to the ER because of worsening shortness of breath for a few days duration Patient currently is lying in bed in the emergency room 6, with BiPAP machine on with parameters of 15/6, FiO2 of 40%. Patient is tachypneic breathing with direct about 34-37. Patient looks tired and she could not provide much information, she cannot talk but she is awake and oriented. She follows commands. She has minimal chest movement with expiratory wheezing. She denies any pain, no chest pain she denies any GI or urinary symptoms. She moves all extremities symmetrically. vitals reviewed and patient is afebrile. Mild Leukocytosis of 12.2, Mild Thrombocytopenia 127. Hemoglobin Normal. INR 0.9. VBG Showing High PCO2 of 84, Low pH of 7.3. BNP showing high carbon dioxide at 49, creatinine normal. Liver enzymes not elevated. Troponin negative. ProBNP is 301. Glucose 128. Chest x-ray reviewed by myself showing enlarged heart with COPD changes. Mini mal chest congestion. Patient started on dexamethasone, albuterol. EKG showing normal sinus rhythm at [address]-T changes. 01/05/2023 Patient remains in the ICU, she required BiPAP all the ninth yesterday except for one hour she got some rest. Today patient showed significant improvement, she is more alert awake, pleasant. Her mentation is back to normal. Her breathing is also improving with decrease respiratory rate into 18-20, per to more than 30 yesterday. Repeat chest x-ray looks similar findings to yesterday with no obvious infiltrate or consolidation. The heart is mildly enlarged, just x-ray reviewed by myself. Other vitals and labs looks stable. pro-calcitonin is slightly elevated at 0.20 She is currently receiving IV Solu-Medrol 60 mg as well as broad-spectrum antibiotics with vancomycin and cefepime Until doxycycline. Also she is on IV Lasix daily. 01/06/2023 pt today is significantly improved , she can talk easily off the bipap machine in the moring although she was using all night, she requires few liter of oxgyen per min like 4 only Because of significant improvement and she was moved out of the ICU Her treatment was the risk related, antibiotics vancomycin and doxycycline were stopped and Cefepime. IV Lasix Switched to Oral Dose of 40 Mg Daily. While She Kept on High Dose of IV Solu-Medrol 60 Mg. Objective - Vital Signs Vital signs: Vital Signs Temp 98.6 F 01/06/23 10:20 Pulse 88 01/06/23 11:11 Resp 22 01/06/23 10:20 BP 161/75 01/06/23 10:20 Pulse Ox 94 L 01/06/23 10:20 FiO2 40 01/06/23 03:59 Intake & Output 01/05/23 01/06/23 01/06/23 18:59 06:59 18:59 Intake Total 220 230 60 Output Total 940 422 127 Balance -720 -192 -67 Weight 87.1 kg Intake: IV 220 230 60 0.9 carrier 120 10 40 Cefepime 2 gm In Sodium 100 100 Chloride 0.9% 100 ml @ 25 mls/hr IVPB Q12HR [facility] Rx #:[id number] Sodium Chloride 0.9% 1, 120 20 000 ml @ 20 mls/hr IV . Q24H [facility] Rx#:[id number] Output: Urine 940 422 127 Other: Voiding Method Indwelling Catheter Indwelling Catheter Indwelling Catheter # Voids 1 # Bowel Movements 1 - Exam -GENERAL: The patient is alert and oriented x3, not in any acute distress. Well developed, well nourished. more awake and comfortable HEENT: Pupils are round and equally reacting to light. EOMI. No scleral icterus. No conjunctival pallor. Normocephalic, atraumatic. No pharyngeal erythema. No thyromegaly. CARDIOVASCULAR: S1 and S2 present. No murmurs, rubs, or gallops. -PULMONARY: Chest is clear to auscultation, no wheezing or crackles. Gastric technique, slightly better air entry ABDOMEN: Soft, nontender, nondistended, normoactive bowel sounds. No palpable organomegaly. MUSCULOSKELETAL: No joint swelling or deformity. EXTREMITIES: No cyanosis, clubbing, or pedal edema. NEUROLOGICAL: Gross neurological examination did not reveal any focal deficits. SKIN: No rashes. no petechiae. - Labs CBC & Chem 7: 01/06/23 05:36 01/06/23 08:40 Labs: Abnormal Lab Results - Last 24 Hours (Table) 01/05/23 01/05/23 01/06/23 Range/Units 16:09 19:58 05:36 WBC 15.0 H (3.8-10.6) k/uL RBC 3.71 L (3.80-5.40) m/uL MCV 100.5 H (80.0-100.0) fL Plt Count 143 L (150-450) k/uL Neutrophils # 14.1 H (1.3-7.7) k/uL Lymphocytes # 0.5 L (1.0-4.8) k/uL Chloride (98-107) mmol/L Carbon Dioxide (22-30) mmol/L BUN (7-17) mg/dL Glucose (74-99) mg/dL POC Glucose (mg/dL) 143 H 191 H (70-110) mg/dL Calcium (8.4-10.2) mg/dL 01/06/23 01/06/23 Range/Units 05:36 07:04 WBC (3.8-10.6) k/uL RBC (3.80-5.40) m/uL MCV (80.0-100.0) fL Plt Count (150-450) k/uL Neutrophils # (1.3-7.7) k/uL Lymphocytes # (1.0-4.8) k/uL Chloride 96 L (98-107) mmol/L Carbon Dioxide 40 H (22-30) mmol/L BUN 41 H (7-17) mg/dL Glucose 216 H (74-99) mg/dL POC Glucose (mg/dL) 194 H (70-110) mg/dL Calcium 8.2 L (8.4-10.2) mg/dL Assessment and Plan Assessment: Acute COPD exacerbation Acute on chronic hypoxic respiratory failure patient is normally at home on 3 L nasal cannula now on bipap Acute respiratory acidosis Acute on chronic hypercapnic respiratory failure Chronic leukocytosis History of COVID-19 pneumonia Benign essential hypertension History of her with osteoarthritis Chronic back pain Former smoker Plan: Continue oxygen supplementation Aggressive bronchopulmonary hygiene Continue with BiPAP night Continue breathing treatments Continue IV Solu-Medrol Continue cefepime Consult pulmonary team Continue oral Lasix 40 mg daily Labs and medication were reviewed.. Continue same treatment. Continue with symptomatic treatment. Resume home medication. Monitor labs and vitals. DVT and GI prophylaxis. Further recommendations as per clinical course of the patient DVT prophylaxis: Subcutaneous heparin GI Prophylaxis: Pepcid PT/OT: Pending Prognosis is guarded
[2023-01-06] MEDS: ALBUTEROL HFA INHALER INHALATION PRN (23:41)
[2023-01-07] MEDS: ALBUTEROL HFA INHALER INHALATION PRN ×3 (03:46→23:14)
[2023-01-07] MEDS: TOBRA-DEXAMET 0.3-0.1% OPHTH DROPS 2.5 ML BTL RIGHT EYE SCH ×6 (04:27→23:51)
[2023-01-07] MEDS: methylPREDNISolone SOD SUCCI 125 MG/2 ML VIAL IV SCH ×2 (05:44→13:08)
[2023-01-07] MEDS: THEOPHYLLINE 24 HOUR 400 MG CAP.ER.24H PO SCH (05:44)
[2023-01-07] MEDS: VERAPAMIL SR 120 MG TABLET.ER PO SCH (05:44)
[2023-01-07] MEDS: DULoxetine HCL 30 MG CAPSULE.DR PO SCH (05:44)
[2023-01-07 06:51] LABS: Potassium 3.9 mmol/L (3.5-5.1)
[2023-01-07 06:52] LABS: African American GFR (CKD) >90 (>60 ml/min/1.73 sqM); Blood Urea Nitrogen 38 mg/dL (7-17); Calcium 8.2 mg/dL (8.4-10.2); Chloride 97 mmol/L (98-107); Glucose 195 mg/dL (74-99); Non-African American GFR(CKD) >90 (>60 ml/min/1.73 sqM); Sodium 142 mmol/L (137-145)
[2023-01-07 06:59] LABS: Anion Gap 3 mmol/L
[2023-01-07 07:01] LABS: Carbon Dioxide 42 mmol/L (22-30)
[2023-01-07 07:19] LABS: Glucose,Whole Blood 156 mg/dL (70-110)
[2023-01-07] MEDS: BUDESONIDE 0.5 MG/2 ML NEBU INHALATION SCH ×2 (07:28→19:27)
[2023-01-07] MEDS: FORMOTEROL FUMARATE 20 MCG/2 ML NEBU INHALATION SCH ×2 (07:28→19:27)
[2023-01-07] MEDS: TIOTROPIUM 2.5 MCG INHALER INHALATION SCH (07:28)
[2023-01-07] MEDS: ALBUTEROL HFA INHALER INHALATION SCH ×4 (07:28→19:27)
--- NOTE | 2023-01-07 07:56 | XR ---
EXAMINATION TYPE: XR chest 1V portable DATE OF EXAM: 01/07/2023 6:21 AM COMPARISON: Chest radiographs from 01/06/2023 TECHNIQUE: XR chest 1V portable Portable AP radiograph of the chest. CLINICAL INDICATION:Female, 67 years old with history of shortness of breath; FINDINGS: Patient is rotated. Lungs/Pleura: Low lung volumes are present. There is no evidence of pleural effusion, focal consolida tion, or pneumothorax. Pulmonary vascularity: Unremarkable. Heart/mediastinum: Cardiomediastinal silhouette is unremarkable. Musculoskeletal: No acute osseous pathology. IMPRESSION: Rotated exam with bibasilar hazy opacities which could be due to low lung volumes. Attention on follo w-up.
[2023-01-07] MEDS: FAMOTIDINE 20 MG TAB PO SCH ×2 (08:55→20:30)
[2023-01-07] MEDS: ALPRAZolam 0.25 MG TAB PO PRN ×2 (08:55→21:25)
[2023-01-07] MEDS: carvediloL 6.25 MG TAB PO SCH ×2 (08:56→17:09)
[2023-01-07] MEDS: INSULIN ASPART (NovoLOG) 100 UNIT/ML VIAL SQ SCH ×4 (08:56→20:44)
[2023-01-07] MEDS: FUROSEMIDE 40 MG TAB PO SCH (08:56)
[2023-01-07] MEDS: HEPARIN SODIUM,PORCINE/PF 5,000 UNIT/0.5 ML SYRINGE SQ SCH ×2 (08:56→20:30)
[2023-01-07] MEDS: CEFEPIME 2 GM in SODIUM CHLORIDE 0.9% 100 ML IVPB SCH ×2 (08:57→20:28)
--- NOTE | 2023-01-07 12:26 | P.PN ---
Subjective This is a pleasant 67 years old female with past medical history of advanced COPD advanced COPD on home oxygen dependent on 3-4 L at all times, obstructive sleep apnea CPAP dependent nightly, diastolic CHF hypertension, iron deficiency anemia, rheumatoid arthritis, and chronic back pain who presented to the ER because of worsening shortness of breath for a few days duration Patient currently is lying in bed in the emergency room 6, with BiPAP machine on with parameters of 15/6, FiO2 of 40%. Patient is tachypneic breathing with direct about 34-37. Patient looks tired and she could not provide much information, she cannot talk but she is awake and oriented. She follows commands. She has minimal chest movement with expiratory wheezing. She denies any pain, no chest pain she denies any GI or urinary symptoms. She moves all extremities symmetrically. vitals reviewed and patient is afebrile. Mild Leukocytosis of 12.2, Mild Thrombocytopenia 127. Hemoglobin Normal. INR 0.9. VBG Showing High PCO2 of 84, Low pH of 7.3. BNP showing high carbon dioxide at 49, creatinine normal. Liver enzymes not elevated. Troponin negative. ProBNP is 301. Glucose 128. Chest x-ray reviewed by myself showing enlarged heart with COPD changes. Mini mal chest congestion. Patient started on dexamethasone, albuterol. EKG showing normal sinus rhythm at [address]-T changes. 01/05/2023 Patient remains in the ICU, she required BiPAP all the ninth yesterday except for one hour she got some rest. Today patient showed significant improvement, she is more alert awake, pleasant. Her mentation is back to normal. Her breathing is also improving with decrease respiratory rate into 18-20, per to more than 30 yesterday. Repeat chest x-ray looks similar findings to yesterday with no obvious infiltrate or consolidation. The heart is mildly enlarged, just x-ray reviewed by myself. Other vitals and labs looks stable. pro-calcitonin is slightly elevated at 0.20 She is currently receiving IV Solu-Medrol 60 mg as well as broad-spectrum antibiotics with vancomycin and cefepime Until doxycycline. Also she is on IV Lasix daily. 01/06/2023 pt today is significantly improved , she can talk easily off the bipap machine in the moring although she was using all night, she requires few liter of oxgyen per min like 4 only Because of significant improvement and she was moved out of the ICU Her treatment was the risk related, antibiotics vancomycin and doxycycline were stopped and Cefepime. IV Lasix Switched to Oral Dose of 40 Mg Daily. While She Kept on High Dose of IV Solu-Medrol 60 Mg. 01/07/2023 Patient today having some more breathing difficulty compared to yesterday however she still looks greatly although she still have some wheezing. She is saturating 90s on 4 L oxygen via nasal cannula, no much of accessory muscles and she can talk more freely. Her chest x-ray today showing worse than admission when I reviewed it but most likely this is because of the technique. She remains on IV Solu-Medrol, 60 mg. Cefepime, oral Lasix 40 mg daily. Patient did not need BiPAP last night. Patient wants to keep the [place] cath in Place because it's harder for her to get up Objective - Vital Signs Vital signs: Vital Signs Temp 98.7 F 01/07/23 07:11 Pulse 90 01/07/23 07:51 Resp 22 01/07/23 07:11 BP 139/66 01/07/23 07:11 Pulse Ox 96 01/07/23 07:29 FiO2 40 01/07/23 11:10 Intake & Output 01/06/23 01/07/23 01/07/23 17:59 06:59 18:59 Intake Total Output Total Balance Intake: IV 0.9 carrier Cefepime 2 gm In Sodium Chloride 0.9% 100 ml @ 25 mls/hr IVPB Q12HR [facility] Rx #:[id number] Sodium Chloride 0.9% 1, 000 ml @ 20 mls/hr IV . Q24H [facility] Rx#:[id number] Oral Output: Urine Other: Voiding Method Indwelling Catheter # Voids - Exam -GENERAL: The patient is alert and oriented x3, not in any acute distress. Well developed, well nourished. more awake and comfortable HEENT: Pupils are round and equally reacting to light. EOMI. No scleral icterus. No conjunctival pallor. Normocephalic, atraumatic. No pharyngeal erythema. No thyromegaly. CARDIOVASCULAR: S1 and S2 present. No murmurs, rubs, or gallops. -PULMONARY: Chest is clear to auscultation, no wheezing or crackles. Gastric technique, slightly better air entry ABDOMEN: Soft, nontender, nondistended, normoactive bowel sounds. No palpable organomegaly. MUSCULOSKELETAL: No joint swelling or deformity. EXTREMITIES: No cyanosis, clubbing, or pedal edema. NEUROLOGICAL: Gross neurological examination did not reveal any focal deficits. SKIN: No rashes. no petechiae. - Labs CBC & Chem 7: 01/06/23 05:36 01/07/23 06:20 Labs: Abnormal Lab Results - Last 24 Hours (Table) 01/06/23 01/06/23 01/06/23 Range/Units 12:32 16:48 20:38 Chloride (98-107) mmol/L Carbon Dioxide (22-30) mmol/L BUN (7-17) mg/dL Glucose (74-99) mg/dL POC Glucose (mg/dL) 117 H 220 H 208 H (70-110) mg/dL Calcium (8.4-10.2) mg/dL 01/07/23 01/07/23 Range/Units 06:20 07:17 Chloride 97 L (98-107) mmol/L Carbon Dioxide 42 H* (22-30) mmol/L BUN 38 H (7-17) mg/dL Glucose 195 H (74-99) mg/dL POC Glucose (mg/dL) 156 H (70-110) mg/dL Calcium 8.2 L (8.4-10.2) mg/dL Assessment and Plan Assessment: Acute COPD exacerbation Acute on chronic hypoxic respiratory failure patient is normally at home on 3 L nasal cannula now on bipap Acute respiratory acidosis Acute on chronic hypercapnic respiratory failure Chronic leukocytosis History of COVID-19 pneumonia Benign essential hypertension History of her with osteoarthritis Chronic back pain Former smoker Plan: Continue oxygen supplementation Aggressive bronchopulmonary hygiene Continue with BiPAP night Continue breathing treatments Continue IV Solu-Medrol Continue cefepime Consult pulmonary team Continue oral Lasix 40 mg daily Labs and medication were reviewed.. Continue same treatment. Continue with sy mptomatic treatment. Resume home medication. Monitor labs and vitals. DVT and GI prophylaxis. Further recommendations as per clinical course of the patient DVT prophylaxis: Subcutaneous heparin GI Prophylaxis: Pepcid PT/OT: Pending Prognosis is guarded
[2023-01-07 12:28] LABS: Glucose,Whole Blood 227 mg/dL (70-110)
--- NOTE | 2023-01-07 13:36 | P.PN ---
Subjective Progress Note Date: 01/07/23 67-year-old female patient with advanced end-stage COPD with frequent hospitalizations was been listed and subsequently deactivated from lung transplant list at [facility], coming in for another exacerbation. The patient was discharged from the hospital on 01/25/2023 after having a prolonged hospitalization for COPD exacerbation and acute on top of chronic hypoxic and hypercapnic respiratory failure. Note that the patient has advanced and chronic COPD, chronic action dependence maintain on oxygen at 3 L, chronic hypercapnic respiratory failure maintained on a VPAP auto with an EPAP minimum of 5 and a maximum pressure of 15 with a pressure support of 4. She has history of other comorbid conditions including hypertension, rheumatoid arthritis, chronic pain, including chronic back pain and previous history of infections with Covid 19 from which she recovered. She has also history was 2., Osteoarthritis, restless leg, gout and impaired hearing During this current admission, the [facility] worsening [facility]ness of breath.. The patient was quite somnolent and lethargic and tachypneic at the time of emergency presentation. This started at the [facility] facility. She was found to be lethargic while being on her BiPAP machine. The patient was arousable to sternal rub, yet she will go to sleep if left on terminated. Upon arrival she was immediately placed on a BiPAP. She was placed on a pressure of 12/6 cm of water. The generated tidal volume was low at around 150, and the patient had an elevated respiratory rate. Based on that, I modified the BiPAP to pressures of 15/6 cm of water. The patient is on FiO2 of 40%. Her tidal volume on a mechanical ventilator is around 250 mL. A chest x-ray was done that showed mild cardiomegaly without any Acute cardiac pulmonary process. The patient also had a blood gas that showed a pH of 7.34 wi th a pCO2 of 84 and pO2 of 80 and this was an FiO2 of 40% while being in the BiPAP. The echoes at 12.2 with a hemoglobin of 14 and a platelet count of 127. Serum bicarb is 49, sodium is at 139, potassium level is at 3.7. Troponin is at 0.04. LFTs are normal. On today's evaluation of 01/05/2023, the patient has done great progress. I was very much concerned and the patient is going to get intubated yesterday. I try not to intubated the patient has advanced COPD and we managed with noninvasive positive pressure ventilatory with BiPAP at a pressure of 15/6 cm of water. After she arrived to the ICU, she gradually improved. She became much more alert and awake. She was briefly taken off the BiPAP, however overnight, she was kept on a BiPAP for further support. This morning, she is off the BiPAP and she is currently on oxygen at 3 L. There is adequate air entry bilaterally al though the patient remains bronchospastic and wheezy. Chest x-ray does not show any acute abnormalities on today's evaluation. The patient otherwise is on fluids at KVO. She is on albuterol neb blotchiness 4 times a day, Pulmicort Respules 0.5 mg twice a day, IV Solu-Medrol 60 mg every 6 hours, she is also on a combination of cefepime, vancomycin that was started yesterday on an empiric basis for a possibility of underlying pneumonia. I think it's safe to discontinue the vancomycin at least for now. The primary care team also added doxycycline. The MUGA scan is at 6.5 with a hemoglobin 12.3 and a platelet count of 131. Serum bicarbs of 47. BUN is at 30 with a creatinine of 0.7 and a sodium level is at 138. She is afebrile. She is awake and alert. Should be able to eat and the patient was offered breakfast and I was told that she ate 100% of her breakfast. 01/06/2023, the patient is fully alert and awake and oriented. She is off the BiPAP and she is currently on oxygen at 3 L nasal cannula. No new complaints for now.Acute COPD exacerbation is being treated with a combination of albuterol nebulized treatments 4 times a day, Pulmicort Respules 0.5 mg twice a day, Perfo romist embolus treatments twice a day, theophylline 400 mg by mouth daily, IV Solu-Medrol which is still running at a dose of 60 mg IV every 6 hours. Her antibiotic coverage is with IV cefepime. The bloodwork from today shows a WBC count of 15 with a hemoglobin of 11.7 and a platelet count of 143. Bicarb is at 40. Sodiums of 140 with a potassium level of 3.6. Blood glucose is 216 and the calcium levels at 3.2. Clinically, the patient is doing well. No complaints patient should be able to transfer outside intensive care unit. On 01/07/2023, the patient is on a medical floor. The patient got transferred out of the intensive care unit yesterday. Awake and alert. No signs of any CO2 narcosis. Remains on the same respiratory medications and combination with that she is receiving IV Solu-Medrol. She is becoming progressively more cushingoid. She has a VPAP from home and she has a BiPAP at the bedside. No altered mentation. Tolerating her diet. No nausea or vomiting cannot now. No chest pain.Very limited performance of functional status due to advanced COPD. Blood sugars at 227. Sodium is at 142 with a BUN of 38 and a creatinine of 0.6. Objective - Vital Signs Vital signs: Vital Signs Temp 98.7 F 01/07/23 07:11 Pulse 90 01/07/23 07:51 Resp 22 01/07/23 07:11 BP 139/66 01/07/23 07:11 Pulse Ox 96 01/07/23 07:29 FiO2 40 01/07/23 11:10 Intake & Output 01/06/23 01/07/23 01/07/23 17:59 06:59 18:59 Intake Total Output Total Balance Intake: IV 0.9 carrier Cefepime 2 gm In Sodium Chloride 0.9% 100 ml @ 25 mls/hr IVPB Q12HR [facility] Rx #:[id number] Sodium Chloride 0.9% 1, 000 ml @ 20 mls/hr IV . Q24H [facility] Rx#:[id number] Oral Output: Urine Other: Voiding Method Indwelling Catheter # Voids - Exam GENERAL EXAM: Awake and alert and the patient is currently on 3 L of oxygen by nasal cannula, breathing is comfortable morbidly obese and she also has obvious cushingoid features. 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 EYES: Normal reaction of pupils, equal size. NOSE: Clear with pink turbinates. THROAT: No erythema or exudates. NECK: No masses, no JVD. CHEST: No chest wall deformity. LUNGS: Equal air entry with bilateral end expiratory wheeze, diminished. The breath sounds are markedly diminished bilaterally and there is diffuse expiratory wheezing throughout the lung guzman. CVS: S1 and S2 normal with no audible murmur, regular rhythm. ABDOMEN: No hepatosplenomegaly, normal bowel sounds, no guarding or rigidity. SPINE: No scoliosis or deformity SKIN: No rashes CENTRAL NERVOUS SYSTEM: No focal deficits, tone is normal in all 4 extremities. EXTREMITIES: There is no peripheral edema. No clubbing, no cyanosis. Peripheral pulses are intact. - Labs CBC & Chem 7: 01/06/23 05:36 01/07/23 06:20 Labs: Abnormal Lab Results - Last 24 Hours (Table) 01/06/23 01/06/23 01/06/23 Range/Units 12:32 16:48 20:38 Chloride (98-107) mmol/L Carbon Dioxide (22-30) mmol/L BUN (7-17) mg/dL Glucose (74-99) mg/dL POC Glucose (mg/dL) 117 H 220 H 208 H (70-110) mg/dL Calcium (8.4-10.2) mg/dL 01/07/23 01/07/23 01/07/23 Range/Units 06:20 07:17 12:27 Chloride 97 L (98-107) mmol/L Carbon Dioxide 42 H* (22-30) mmol/L BUN 38 H (7-17) mg/dL Glucose 195 H (74-99) mg/dL POC Glucose (mg/dL) 156 H 227 H (70-110) mg/dL Calcium 8.2 L (8.4-10.2) mg/dL Assessment and Plan Plan: Acute exacerbation of chronic obstructive pulmonary disease, the patient's is improved on IPAP and currently she is on 3 L of oxygen by nasal cannula. She presented to us with a acute COPD exacerbation, CO2 narcosis, altered mentation and impending respiratory failure the patient is improved considerably. Cur rently she is off the BiPAP. The patient is utilizing BiPAP overnight and currently she is on 3 L of oxygen by nasal cannula. Much improved, no signs of any CO2 narcosis. Acute on chronic hypoxic and hypercapnic respiratory failure , improved and currently she is on 3 L of oxygen by nasal cannula Advanced end-stage COPD and she is currently oxygen dependent. She has had multiple hospitals issue for COPD exacerbation and she has significant limitation performance and functional status due to advanced COPD. She is currently on oxygen at 3 -4L. Her last exacerbation was in November of 2022. The patient is on a combination of Perforomist and Pulmicort neb treatments twice a day, theophylline and DuoNeb nebulized treatment 4 times a day, VPAP auto, oxygen. Acute on chronic hypoxemic respiratory failure secondary to above, note that she has chronic hypoxic so distended and she is on home oxygen at 3 L/m per nasal cannula History of a left upper lobe lesion measuring 18 x 13 mm in size. Being followed in the outpatient setting, most recent CAT scan of the chest that was done on 09/18/2022 showed a similar left upper lobe pulmonary opacity measuring 16 mm and this was a groundglass opacity, likely inflammatory rather than being malignant. No mediastinal lymphadenopathy. History of CoVID in 19 pneumonia History of chronic lower extremity edema Hypertension Attention deficit hyperactivity disorder Rheumatoid arthritis Chronic back pain Former smoker Chronic steroid intake with cushingoid features Medical debility second above-mentioned comorbidities Plan Patient is on a medical floor Discontinue IV Solu-Medrol and put the patient on 40 mg of prednisone daily basis Increase mobility Continue BiPAP overnight, currently on 3 L O2 nasal cannula, the patient can utilize her own VPAP from home pressure minimum of 4, maximum 50 with a pressure support of 4. Meanwhile, the [facility] BiPAP is set at a pressure of 15/6 cm of water with FiO2 of 40% overnight DuoNeb nebulized treatments [id number] Perforomist and Pulmicort a blood treatments twice a day Theophylline 400 mg a day Monitor the blood sugar and put the patient has vascular insulin coverage Continue theophylline orally if she is able to take her medication dose of 400 mg on a daily basis Lasix 40 mg by mouth daily Monitor serum bicarb and decide of Diamox as needed Conditions extremity predicted on we'll continue to follow make further recommendations based on her progress. Pro calcitonin level was at 0.2. Poor prognosis. Not a transplant candidate.
[2023-01-07] MEDS: SODIUM CHLORIDE 0.9% 1,000 ML IV SCH (17:06)
[2023-01-07 17:33] LABS: Glucose,Whole Blood 112 mg/dL (70-110)
[2023-01-07] MEDS: rOPINIRole HCL 4 MG TABLET PO SCH (20:29)
[2023-01-07] MEDS: MONTELUKAST 10 MG TAB PO SCH (20:29)
[2023-01-07 20:37] LABS: Glucose,Whole Blood 215 mg/dL (70-110)
[2023-01-07] MEDS ORDERED: MELATONIN 5 MG TABLET PO SCH (21:00)
[2023-01-08] MEDS: ALBUTEROL HFA INHALER INHALATION PRN ×2 (03:45→06:33)
[2023-01-08] MEDS: TOBRA-DEXAMET 0.3-0.1% OPHTH DROPS 2.5 ML BTL RIGHT EYE SCH ×5 (04:26→20:36)
[2023-01-08 05:46] LABS: African American GFR (CKD) >90 (>60 ml/min/1.73 sqM); Blood Urea Nitrogen 38 mg/dL (7-17); Chloride 89 mmol/L (98-107); Glucose 153 mg/dL (74-99); Non-African American GFR(CKD) 90 (>60 ml/min/1.73 sqM); Potassium 3.8 mmol/L (3.5-5.1); Sodium 142 mmol/L (137-145)
[2023-01-08 05:52] LABS: Anion Gap 3 mmol/L
[2023-01-08] MEDS: DULoxetine HCL 30 MG CAPSULE.DR PO SCH (05:55)
[2023-01-08] MEDS: VERAPAMIL SR 120 MG TABLET.ER PO SCH (05:56)
[2023-01-08] MEDS: THEOPHYLLINE 24 HOUR 400 MG CAP.ER.24H PO SCH (05:56)
[2023-01-08 05:59] LABS: Carbon Dioxide 50 mmol/L (22-30)
[2023-01-08 07:03] LABS: Glucose,Whole Blood 160 mg/dL (70-110)
[2023-01-08] MEDS: ALBUTEROL HFA INHALER INHALATION SCH ×4 (08:23→15:01)
[2023-01-08] MEDS: BUDESONIDE 0.5 MG/2 ML NEBU INHALATION SCH ×2 (08:28→20:06)
[2023-01-08] MEDS: FORMOTEROL FUMARATE 20 MCG/2 ML NEBU INHALATION SCH ×2 (08:29→20:06)
[2023-01-08] MEDS: TIOTROPIUM 2.5 MCG INHALER INHALATION SCH (08:30)
[2023-01-08] MEDS: FAMOTIDINE 20 MG TAB PO SCH ×2 (08:59→20:26)
[2023-01-08] MEDS: carvediloL 6.25 MG TAB PO SCH ×2 (08:59→18:05)
[2023-01-08] MEDS: FUROSEMIDE 40 MG TAB PO SCH (08:59)
[2023-01-08] MEDS ORDERED: predniSONE 20 MG TAB PO SCH (09:00)
[2023-01-08] MEDS: CEFEPIME 2 GM in SODIUM CHLORIDE 0.9% 100 ML IVPB SCH ×2 (09:00→20:25)
[2023-01-08] MEDS: HEPARIN SODIUM,PORCINE/PF 5,000 UNIT/0.5 ML SYRINGE SQ SCH ×2 (09:00→20:25)
[2023-01-08] MEDS: INSULIN ASPART (NovoLOG) 100 UNIT/ML VIAL SQ SCH ×4 (09:03→21:28)
[2023-01-08] MEDS: ALPRAZolam 0.25 MG TAB PO PRN (09:29)
[2023-01-08 11:15] LABS: Glucose,Whole Blood 181 mg/dL (70-110)
--- NOTE | 2023-01-08 12:01 | P.PN ---
Subjective Progress Note Date: 01/08/23 67-year-old female patient with advanced end-stage COPD with frequent hospitalizations was been listed and subsequently deactivated from lung transplant list at [facility], coming in for another exacerbation. The patient was discharged from the hospital on 01/25/2023 after having a prolonged hospitalization for COPD exacerbation and acute on top of chronic hypoxic and hypercapnic respiratory failure. Note that the patient has advanced and chronic COPD, chronic action dependence maintain on oxygen at 3 L, chronic hypercapnic respiratory failure maintained on a VPAP auto with an EPAP minimum of 5 and a maximum pressure of 15 with a pressure support of 4. She has history of other comorbid conditions including hypertension, rheumatoid arthritis, chronic pain, including chronic back pain and previous history of infections with Covid 19 from which she recovered. She has also history was 2., Osteoarthritis, restless leg, gout and impaired hearing During this current admission, the patient presented to us from [facility] for worsening shortness of breath.. The patient was quite somnolent and lethargic and tachypneic at the time of emergency presentation. This started at the senior care facility. She was found to be lethargic while being on her BiPAP machine. The patient was arousable to sternal rub, yet she will go to sleep if left on terminated. Upon arrival she was immediately placed on a BiPAP. She was placed on a pressure of 12/6 cm of water. The generated tidal volume was low at around 150, and the patient had an elevated respiratory rate. Based on that, I modified the BiPAP to pressures of 15/6 cm of water. The patient is on FiO2 of 40%. Her tidal volume on a mechanical ventilator is around 250 mL. A chest x-ray was done that showed mild cardiomegaly without any Acute cardiac pulmonary process. The patient also had a blood gas that showed a pH of 7.34 with a pCO2 of 84 and pO2 of 80 and this was an FiO2 of 40% while being in the BiPAP. The echoes at 12.2 with a hemoglobin of 14 and a platelet count of 127. Serum bicarb is 49, sodium is at 139, potassium level is at 3.7. Troponin is at 0.04. LFTs are normal. On today's evaluation of 01/05/2023, the patient has done great progress. I was very much concerned and the patient is going to get intubated yesterday. I try not to intubated the patient has advanced COPD and we managed with noninvasive positive pressure ventilatory with BiPAP at a pressure of 15/6 cm of water. After she arrived to the ICU, she gradually improved. She became much more alert and awake. She was briefly taken off the BiPAP, however overnight, she was kept on a BiPAP for further support. This morning, she is off the BiPAP and she is currently on oxygen at 3 L. There is adequate air entry bilaterally alt brittaney the patient remains bronchospastic and wheezy. Chest x-ray does not show any acute abnormalities on today's evaluation. The patient otherwise is on fluids at KVO. She is on albuterol neb blotchiness 4 times a day, Pulmicort Respules 0.5 mg twice a day, IV Solu-Medrol 60 mg every 6 hours, she is also on a combination of cefepime, vancomycin that was started yesterday on an empiric basis for a possibility of underlying pneumonia. I think it's safe to discontinue the vancomycin at least for now. The primary care team also added doxycycline. The MUGA scan is at 6.5 with a hemoglobin 12.3 and a platelet count of 131. Serum bicarbs of 47. BUN is at 30 with a creatinine of 0.7 and a sodium level is at 138. She is afebrile. She is awake and alert. Should be able to eat and the patient was offered breakfast and I was told that she ate 100% of her breakfast. 01/06/2023, the patient is fully alert and awake and oriented. She is off the BiPAP and she is currently on oxygen at 3 L nasal cannula. No new complaints for now.Acute COPD exacerbation is being treated with a combination of albuterol nebulized treatments 4 times a day, Pulmicort Respules 0.5 mg twice a day, Perforomist embolus treatments twice a day, theophylline 400 mg by mouth daily, IV Solu-Medrol which is still running at a dose of 60 mg IV every 6 hours. Her antibiotic coverage is with IV cefepime. The bloodwork from today shows a WBC count of 15 with a hemoglobin of 11.7 and a platelet count of 143. Bicarb is at 40. Sodiums of 140 with a potassium level of 3.6. Blood glucose is 216 and the calcium levels at 3.2. Clinically, the patient is doing well. No complaints patient should be able to transfer outside intensive care unit. On 01/07/2023, the patient is on a medical floor. The patient got transferred out of the intensive care unit yesterday. Awake and alert. No signs of any CO2 narcosis. Remains on the same respiratory medications and combination with that she is receiving IV Solu-Medrol. She is becoming progressively more cushingoid. She has a VPAP from home and she has a BiPAP at the bedside. No altered mentation. Tolerating her diet. No nausea or vomiting cannot now. No chest pain.Very limited performance of functional status due to advanced COPD. Blood sugars at 227. Sodium is at 142 with a BUN of 38 and a creatinine of 0.6. The patient is seen today 01/08/2023 in follow-up on the regular medical floor. She is currently sitting up in bed. Awake and alert in no acute distress. She is still dyspneic with conversation. Dyspneic with minimal activity. She is currently maintaining O2 saturations in the 90s on 4 L/m per nasal cannula. She is on BiPAP 15/6 at 40% at night and during the day while mapping. Sodium 142. Potassium 3.8. Bicarb 50. BUN 38. Creatinine 0.68. Glucose 153. She is currently on albuterol, Pulmicort and Perforomist inhalations, Spiriva, Singulair, theophylline. Antibiotics in the form of cefepime. Heparin for DVT prophylaxis. Remains on oral diuretics. Objective - Vital Signs Vital signs: Vital Signs Temp 98.8 F 01/08/23 07:04 Pulse 103 H 01/08/23 08:44 Resp 18 01/08/23 07:04 BP 177/78 01/08/23 07:04 Pulse Ox 95 01/08/23 08:33 FiO2 40 01/08/23 03:46 Intake & Output 01/07/23 01/08/23 01/08/23 18:59 06:59 18:59 Intake Total 1250 590 Output Total 850 600 Balance 400 -10 Intake: Oral 1250 590 Output: Urine 850 600 Other: Voiding Method Indwelling Catheter Indwelling Catheter Indwelling Catheter # Bowel Movements 1 1 - Exam GENERAL EXAM: Awake, alert 67-year-old female, currently on 3 L of oxygen by nasal cannula, breathing is comfortable, morbidly obese. 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 EYES: Normal reaction of pupils, equal size. NOSE: Clear with pink turbinates. THROAT: No erythema or exudates. NECK: No masses, no JVD. CHEST: No chest wall deformity. LUNGS: Equal air entry with markedly diminished breath sounds bilaterally and diffuse expiratory wheezing throughout the lung guzman. CVS: S1 and S2 normal with no audible murmur, regular rhythm. ABDOMEN: No hepatosplenomegaly, normal bowel sounds, no guarding or rigidity. SPINE: No scoliosis or deformity SKIN: No rashes CENTRAL NERVOUS SYSTEM: No focal deficits, tone is normal in all 4 extremities. EXTREMITIES: There is no peripheral edema. No clubbing, no cyanosis. Peripheral pulses are intact. - Labs CBC & Chem 7: 01/06/23 05:36 01/08/23 05:07 Labs: Abnormal Lab Results - Last 24 Hours (Table) 01/07/23 01/07/23 01/07/23 Range/Units 12:27 17:31 20:36 Chloride (98-107) mmol/L Carbon Dioxide (22-30) mmol/L BUN (7-17) mg/dL Glucose (74-99) mg/dL POC Glucose (mg/dL) 227 H 112 H 215 H (70-110) mg/dL Calcium (8.4-10.2) mg/dL 01/08/23 01/08/23 01/08/23 Range/Units 05:07 07:02 11:13 Chloride 89 L (98-107) mmol/L Carbon Dioxide 50 H* (22-30) mmol/L BUN 38 H (7-17) mg/dL Glucose 153 H (74-99) mg/dL POC Glucose (mg/dL) 160 H 181 H (70-110) mg/dL Calcium 8.0 L (8.4-10.2) mg/dL Assessment and Plan Assessment: Acute exacerbation of chronic obstructive pulmonary disease, the patient is improved on BiPAP and currently she is on 3 L of oxygen by nasal cannula. She presented with an acute COPD exacerbation, CO2 narcosis, altered mentation and impending respiratory failure the patient is improved considerably. Currently she is off the BiPAP. The patient is utilizing BiPAP overnight and currently she is on 3 L of oxygen by nasal cannula. Much improved, no signs of any CO2 narcosis. Acute on chronic hypoxic and hypercapnic respiratory failure, improved and currently she is on 3 L of oxygen by nasal cannula Advanced end-stage COPD and she is currently oxygen dependent. She has had multiple hospitals issue for COPD exacerbation and she has significant limitation performance and functional status due to advanced COPD. She is currently on oxygen at 3 -4L. Her last exacerbation was in November of 2022. The patient is on a combination of Perforomist and Pulmicort neb treatments twice a day, theophylline and DuoNeb nebulized treatment 4 times a day, VPAP auto, oxygen. Acute on chronic hypoxemic respiratory failure secondary to above, she is on home oxygen at 3 L/m per nasal cannula History of a left upper lobe lesion measuring 18 x 13 mm in size. Being followed in the outpatient setting, most recent CAT scan of the chest that was done on 09/18/2022 showed a similar left upper lobe pulmonary opacity measuring 16 mm and this was a groundglass opacity, likely inflammatory rather than being malignant. No mediastinal lymphadenopathy. History of CoVID in 19 pneumonia History of chronic lower extremity edema Hypertension Attention deficit hyperactivity disorder Rheumatoid arthritis Chronic back pain Former smoker Chronic steroid intake with cushingoid features Medical debility second above-mentioned comorbidities Plan: The patient was seen and evaluated Medications and labs reviewed Currently on 4 L nasal cannula Alternating with BiPAP Continue the current treatment plan We will continue to follow I have personally seen and examined the patient, performed the documentation and the assessment and plan as written. Number of minutes spent on the visit: 10.
--- NOTE | 2023-01-08 15:39 | P.PN ---
Subjective Progress Note Date: 01/08/23 This is a pleasant 67 years old female with past medical history of advanced COPD advanced COPD on home oxygen dependent on 3-4 L at all times, obstructive sleep apnea CPAP dependent nightly, diastolic CHF hypertension, iron deficiency anemia, rheumatoid arthritis, and chronic back pain who presented to the ER because of worsening shortness of breath for a few days duration Patient currently is lying in bed in the emergency room 6, with BiPAP machine on with parameters of 15/6, FiO2 of 40%. Patient is tachypneic breathing with direct about 34-37. Patient looks tired and she could not provide much information, she cannot talk but she is awake and oriented. She follows commands. She has minimal chest movement with expiratory wheezing. She denies any pain, no chest pain she denies any GI or urinary symptoms. She moves all extremities symmetrically. vitals reviewed and patient is afebrile. Mild Leukocytosis of 12.2, Mild Thrombocytopenia 127. Hemoglobin Normal. INR 0.9. VBG Showing High PCO2 of 84, Low pH of 7.3. BNP showing high carbon dioxide at 49, creatinine normal. Liver enzymes not elevated. Troponin negative. ProBNP is 301. Glucose 128. Chest x-ray reviewed by myself showing enlarged heart with COPD changes. Minimal chest congestion. Patient started on dexamethasone, albuterol. EKG showing normal sinus rhythm at [address]-T changes. 01/05/2023 Patient remains in the ICU, she required BiPAP all the ninth yesterday except for one hour she got some rest. Today patient showed significant improvement, she is more alert awake, pleasant. Her mentation is back to normal. Her breathing is also improving with decrease respiratory rate into 18-20, per to more than 30 yesterday. Repeat chest x-ray looks similar findings to yesterday with no obvious infiltrate or consolidation. The heart is mildly enlarged, just x-ray reviewed by myself. Other vitals and labs looks stable. pro-calcitonin is slightly elevated at 0.20 She is currently receiving IV Solu-Medrol 60 mg as well as broad-spectrum antibiotics with vancomycin and cefepime Until doxycycline. Also she is on IV Lasix daily. 01/06/2023 pt today is significantly improved , she can talk easily off the bipap machine in the moring although she was using all night, she requires few liter of oxgyen per min like 4 only Because of significant improvement and she was moved out of the ICU Her treatment was the risk related, antibiotics vancomycin and doxycycline were stopped and Cefepime. IV Lasix Switched to Oral Dose of 40 Mg Daily. While She Kept on High Dose of IV Solu-Medrol 60 Mg. 01/07/2023 Patient today having some more breathing difficulty compared to yesterday however she still looks greatly although she still have some wheezing. She is saturating 90s on 4 L oxygen via nasal cannula, no much of accessory muscles and she can talk more freely. Her chest x-ray today showing worse than admission when I reviewed it but most likely this is because of the technique. She remains on IV Solu-Medrol, 60 mg. Cefepime, oral Lasix 40 mg daily. Patient did not need BiPAP last night. Patient wants to keep the [place] cath in Place because it's harder for her to get up 01/08/2023 Patient seen and evaluated in follow-up today with pulmonary following closely. Patient is continued on 4 L via nasal cannula as well as BiPAP. Patient continues on oral steroids along with inhalers and cefepime. Patient was started on cefepime empirically for concerns of pneumonia. Patient continues to be extremely dyspneic with minimal exertion and would recommend weaning FiO2 as tolerated. Patient normally wears a CPAP and has one for the outpatient setting although would recommend continuing with BiPAP especially at night from 8 PM to 6 AM. Continue BiPAP as needed as well. Patient extremely weak and has been progressively getting more weak with each admission. Patient has been hospitalized very frequently most recently and clinically very slow to improve. Case management following as there will be plans to return to rehab or possible inpatient rehab. Will await PT/OT therapy evaluation. Patient is currently afebrile denies chest pain or palpitations. Patient reports she is tolerating diet with no reports of nausea or vomiting noted. Review of systems: Constitutional: reports of fatigue, no reports of fever, or chills Cardiovascular: No reports of chest pain or palpitations Respiratory: reports of continued shortness of breath with cough and extreme dyspnea with minimal exertion GI: No reports of nausea, vomiting, or diarrhea : No reports of dysuria or retention Neurovascular: reports of generalized weakness All medications have been reviewed Active Medications Acetaminophen (Acetaminophen Tab 500 Mg Tab) 1,000 mg PO Q6HR PRN PRN Reason: Fever and/ or Pain Last Admin: 01/05/23 20:15 Dose: 1,000 mg Acetazolamide Sodium (Acetazolamide Sodium 500 Mg Vial) 500 mg IV Q12HR [facility] Stop: 01/08/23 21:01 Last Admin: 01/08/23 09:00 Dose: 500 mg Albuterol Sulfate (Albuterol Hfa Inhaler) 2 puff INHALATION RT-QID [facility] Last Admin: 01/08/23 15:01 Dose: 2 puff Albuterol Sulfate (Albuterol Hfa Inhaler) 2 puff INHALATION RT-Q2H PRN PRN Reason: Shortness Of Breath Or Wheezin Last Admin: 01/08/23 06:33 Dose: 2 puff Alprazolam (Alprazolam 0.25 Mg Tab) 0.25 mg PO Q6H PRN PRN Reason: Anxiety Last Admin: 01/08/23 09:29 Dose: 0.25 mg Artificial Tears (Artificial Tears-Hypromellose Drops 15 Ml Btl) 2 drops BOTH EYES QID PRN PRN Reason: Dry Eye(s) Budesonide (Budesonide 0.5 Mg/2 Ml Nebu) 0.5 mg INHALATION RT-BID [facility] Last Admin: 01/08/23 08:28 Dose: 0.5 mg Carvedilol (Carvedilol 6.25 Mg Tab) 6.25 mg PO BID-W/MEALS [facility] Last Admin: 01/08/23 08:59 Dose: 6.25 mg Dextrose/Water (Dextrose 50% Syringe 50 Ml) 25 ml IVP PER PROTOCOL PRN; Protocol PRN Reason: Hypoglycemia Dextrose/Water (Dextrose 50% Syringe 50 Ml) 50 ml IVP PER PROTOCOL PRN; Protocol PRN Reason: Hypoglycemia Duloxetine HCl (Duloxetine Hcl 30 Mg Capsule.Dr) 30 mg PO DAILY@0600 [facility] Last Admin: 01/08/23 05:55 Dose: 30 mg Famotidine (Famotidine 20 Mg Tab) 20 mg PO BID [facility] Last Admin: 01/08/23 08:59 Dose: 20 mg Formoterol Fumarate (Formoterol Fumarate 20 Mcg/2 Ml Nebu) 20 mcg INHALATION RT-BID [facility] Last Admin: 01/08/23 08:29 Dose: 20 mcg Furosemide (Furosemide 40 Mg Tab) 40 mg PO DAILY [facility] Last Admin: 01/08/23 08:59 Dose: 40 mg Heparin Sodium (Porcine) (Heparin Sodium,Porcine/Pf 5,000 Unit/0.5 Ml Syringe) 5,000 unit SQ Q12HR [facility] Last Admin: 01/08/23 09:00 Dose: 5,000 unit Sodium Chloride (Saline 0.9%) 1,000 mls @ 20 mls/hr IV .Q24H [facility] Last Admin: 01/07/23 17:06 Dose: 20 mls/hr Cefepime HCl 2 gm/ Sodium (Chloride) 100 mls @ 25 mls/hr IVPB Q12HR [facility]; Protocol Last Admin: 01/08/23 09:00 Dose: 25 mls/hr Insulin Aspart (Insulin Aspart (Novolog) 100 Unit/Ml Vial) 0 unit SQ ACHS [facility]; Protocol Last Admin: 01/08/23 12:57 Dose: 1 unit Miscellaneous Information (Potassium Replacement Protocol 1 Each Misc) 1 each MISCELLANE DAILY PRN; Protocol PRN Reason: Per Protocol Montelukast Sodium (Montelukast 10 Mg Tab) 10 mg PO [facility] Last Admin: 01/07/23 20:29 Dose: 10 mg Naloxone HCl (Naloxone 0.4 Mg/Ml 1 Ml Vial) 0.2 mg IV Q2M PRN PRN Reason: Opioid Reversal Prednisone (Prednisone 20 Mg Tab) 40 mg PO DAILY [facility] Last Admin: 01/08/23 08:59 Dose: 40 mg Ropinirole HCl (Ropinirole Hcl 4 Mg Tablet) 4 mg PO HS [facility] Last Admin: 01/07/23 20:29 Dose: 4 mg Theophylline (Theophylline 24 Hour 400 Mg Cap.Er.24h) 400 mg PO DAILY@0600 [facility] Last Admin: 01/08/23 05:56 Dose: 400 mg Tiotropium [place] (Tiotropium 2.5 Mcg Inhaler) 2 puff INHALATION RT-DAILY [facility] Last Admin: 01/08/23 08:30 Dose: 2 puff Tobramycin/Dexamethasone (Tobra-Dexamet 0.3-0.1% Ophth Drops 2.5 Ml Btl) 2 drops RIGHT EYE Q4HR [facility] Last Admin: 01/08/23 09:02 Dose: 2 drops Verapamil HCl (Verapamil Sr 120 Mg Tablet.Er) 120 mg PO DAILY@0600 [facility] Last Admin: 01/08/23 05:56 Dose: 120 mg Physical exam : GENERAL: The patient is alert and oriented x3, not in any acute distress. Well developed, well nourished. more awake and comfortable HEENT: Pupils are round and equally reacting to light. EOMI. No scleral icterus. No conjunctival pallor. Normocephalic, atraumatic. No pharyngeal erythema. No thyromegaly. CARDIOVASCULAR: S1 and S2 present. No murmurs, rubs, or gallops. PULMONARY: Chest is clear to auscultation, no wheezing or crackles. Gastric technique, slightly better air entry ABDOMEN: Soft, nontender, nondistended, normoactive bowel sounds. No palpable organomegaly. MUSCULOSKELETAL: No joint swelling or deformity. EXTREMITIES: No cyanosis, clubbing, or pedal edema. NEUROLOGICAL: Gross neurological examination did not reveal any focal deficits. SKIN: No rashes. no petechiae. Assessment: Acute COPD exacerbation Acute on chronic hypoxic respiratory failure patient is normally at home on 3 L nasal cannula now on bipap Acute respiratory acidosis Acute on chronic hypercapnic respiratory failure Chronic leukocytosis History of COVID-19 pneumonia Benign essential hypertension History of rheumatoid osteoarthritis Chronic back pain Former smoker Full code Plan: Recommend continue with current medications and oxygen supplementation of 4 L via nasal cannula. Patient also alternating with BiPAP as needed and at night. Patient chronically uses a CPAP machine in the outpatient setting although his alternating with BiPAP. Pulmonary following and patient is maintained on oral prednisone as well as multiple inhalers and theophylline Patient was started on cefepime per pulmonary for empiric treatment for concerns for pneumonia and will continue for now Encouraged increase activity as tolerated and will have PT/OT evaluate the patient once respiratory status is more stable Due to multiple complex medical issues, prognosis is guarded The impression and plan of care has been dictated by Teresa Portillo Nurse Practitioner as directed. Dr. Joey MD I have performed a history and examination and MDM of this patient, discussed th e same with the dictator, and agree with the dictator's assessment and plan as written ,documented as a scribe. Based on total visit time, I have performed more than 50% of the visit. Objective - Vital Signs Vital signs: Vital Signs Temp 98.8 F 01/08/23 07:04 Pulse 103 H 01/08/23 08:44 Resp 18 01/08/23 07:04 BP 177/78 01/08/23 07:04 Pulse Ox 95 01/08/23 08:33 FiO2 40 01/08/23 03:46 Intake & Output 01/07/23 01/08/23 01/08/23 18:59 06:59 18:59 Intake Total 1250 590 Output Total 850 600 Balance 400 -10 Intake: Oral 1250 590 Output: Urine 850 600 Other: Voiding Method Indwelling Catheter Indwelling Catheter # Bowel Movements 1 1 - Labs CBC & Chem 7: 01/06/23 05:36 01/08/23 05:07 Labs: Abnormal Lab Results - Last 24 Hours (Table) 01/07/23 01/07/23 01/07/23 Range/Units 12:27 17:31 20:36 Chloride (98-107) mmol/L Carbon Dioxide (22-30) mmol/L BUN (7-17) mg/dL Glucose (74-99) mg/dL POC Glucose (mg/dL) 227 H 112 H 215 H (70-110) mg/dL Calcium (8.4-10.2) mg/dL 01/08/23 01/08/23 Range/Units 05:07 07:02 Chloride 89 L (98-107) mmol/L Carbon Dioxide 50 H* (22-30) mmol/L BUN 38 H (7-17) mg/dL Glucose 153 H (74-99) mg/dL POC Glucose (mg/dL) 160 H (70-110) mg/dL Calcium 8.0 L (8.4-10.2) mg/dL
[2023-01-08 17:13] LABS: Glucose,Whole Blood 158 mg/dL (70-110)
[2023-01-08] MEDS: SODIUM CHLORIDE 0.9% 1,000 ML IV SCH (17:26)
[2023-01-08] MEDS ORDERED: IPRATROPIUM-ALBUTEROL 3 ML NEB INHALATION PRN (19:05)
[2023-01-08] MEDS ORDERED: ALBUTEROL HFA INHALER INHALATION SCH (20:00)
[2023-01-08] MEDS ORDERED: IPRATROPIUM-ALBUTEROL 3 ML NEB INHALATION SCH (20:00)
[2023-01-08 20:04] LABS: Glucose,Whole Blood 153 mg/dL (70-110)
[2023-01-08] MEDS: MONTELUKAST 10 MG TAB PO SCH (20:26)
[2023-01-08] MEDS: rOPINIRole HCL 4 MG TABLET PO SCH (21:15)
[2023-01-09] MEDS: TOBRA-DEXAMET 0.3-0.1% OPHTH DROPS 2.5 ML BTL RIGHT EYE SCH ×6 (01:02→21:03)
[2023-01-09] MEDS ORDERED: ALBUTEROL HFA INHALER INHALATION PRN (03:27)
[2023-01-09] MEDS: DULoxetine HCL 30 MG CAPSULE.DR PO SCH (05:39)
[2023-01-09] MEDS: VERAPAMIL SR 120 MG TABLET.ER PO SCH (05:39)
[2023-01-09] MEDS: THEOPHYLLINE 24 HOUR 400 MG CAP.ER.24H PO SCH (05:39)
[2023-01-09 07:02] LABS: Glucose,Whole Blood 86 mg/dL (70-110)
[2023-01-09] MEDS ORDERED: TIOTROPIUM 2.5 MCG INHALER INHALATION SCH (08:00)
[2023-01-09] MEDS: DUONEB INHALATION SCH ×5 (08:00→16:12)
[2023-01-09] MEDS: INSULIN ASPART (NovoLOG) 100 UNIT/ML VIAL SQ SCH ×3 (08:04→18:59)
[2023-01-09] MEDS: FORMOTEROL FUMARATE 20 MCG/2 ML NEBU INHALATION SCH ×2 (08:22→20:55)
[2023-01-09] MEDS: BUDESONIDE 0.5 MG/2 ML NEBU INHALATION SCH ×2 (08:22→20:55)
[2023-01-09] MEDS ORDERED: LORazepam 2 MG/ML INJ IV STA (08:23)
[2023-01-09] MEDS ORDERED: DUONEB INHALATION SCH (08:31)
[2023-01-09] MEDS: CEFEPIME 2 GM in SODIUM CHLORIDE 0.9% 100 ML IVPB SCH ×2 (08:34→21:17)
[2023-01-09] MEDS: HEPARIN SODIUM,PORCINE/PF 5,000 UNIT/0.5 ML SYRINGE SQ SCH ×2 (08:35→21:17)
[2023-01-09] MEDS: FAMOTIDINE 20 MG TAB PO SCH (08:37)
[2023-01-09] MEDS ORDERED: propofoL 100 ML IV ONE (09:07)
[2023-01-09] MEDS ORDERED: SUCCINYLCHOLINE CHLORIDE 200 MG/10 ML VIAL IV ONE (09:18)
[2023-01-09] MEDS ORDERED: MORPHINE SULFATE 4 MG/ML SYRINGE IVP STA (09:20)
[2023-01-09] MEDS ORDERED: PROPOFOL 10 MG/ML 20 ML VIAL IV ONE (09:27)
[2023-01-09 09:50] LABS: ABG Base Excess 11.8 mmol/L; ABG HCO3 36 mmol/L (21-25); ABG PCO2 55 mmHg (35-45); ABG PH 7.42 (7.35-7.45); ABG PO2 279 mmHg (83-108); ABG TCO2 38 mmol/L (19-24); Allen Test Performed? Yes
[2023-01-09] MEDS ORDERED: SODIUM CHLORIDE 0.9% 2,000 ML IV ONE (10:16)
[2023-01-09] MEDS ORDERED: Magnesium Replacement Protocol 1 EACH MISC MISCELLANE PRN (10:45)
[2023-01-09] MEDS ORDERED: POTASSIUM BICARBONATE/CIT AC 20 MEQ TABLET.EFF NG-TUBE SCH ×2 (11:00→15:00)
--- NOTE | 2023-01-09 11:07 | XR ---
EXAMINATION TYPE: XR chest 1V portable DATE OF EXAM: 01/09/2023 10:54 AM COMPARISON: Chest radiographs from 01/07/2023 TECHNIQUE: XR chest 1V portable Portable AP radiograph of the chest. CLINICAL INDICATION:Female, 67 years old with history of intubation, central line placement; FINDINGS: Lungs/Pleura: Blunting of both costophrenic angles with adjacent atelectasis. No focal consolidation or pneumothorax. Pulmonary vascularity: Unremarkable. Heart/mediastinum: Cardiomediastinal silhouette is unremarkable. Atherosclerotic calcifications are seen in the aorta. Musculoskeletal: No acute osseous pathology. Other findings: None Lines/Tubes: Endotracheal tube with distal tip 2.7 cm above the rod Nasogastric tube with its distal tip and side-port projecting under the diaphragm. Right internal jugular central venous catheter with distal tip at the superior cavoatrial junction. IMPRESSION: 1. Appropriate position of endotracheal tube, NG tube, and right IJ central venous catheter. No pneum othorax. 2. Small bilateral pleural effusions associated atelectasis.
[2023-01-09] MEDS: NOREPINEPHRINE 4 MG in SODIUM CHLORIDE 0.9% 250 ML IV SCH (11:24)
[2023-01-09] MEDS: FUROSEMIDE 40 MG TAB PO SCH (11:27)
--- NOTE | 2023-01-09 12:10 | P.PN ---
Subjective Progress Note Date: 01/09/23 Principal diagnosis: Acute hypoxic and hypercapnic respiratory failure secondary to acute exacerbation of COPD 67-year-old female patient with advanced end-stage COPD with frequent hospitalizations was been listed and subsequently deactivated from lung transplant list at [facility], coming in for another exacerbation. The patient was discharged from the hospital on 01/25/2023 after having a prolonged hospitalization for COPD exacerbation and acute on top of chronic hypoxic and hypercapnic respiratory failure. Note that the patient has advanced and chronic COPD, chronic action dependence maintain on oxygen at 3 L, chronic hypercapnic respiratory failure maintained on a VPAP auto with an EPAP minimum of 5 and a maximum pressure of 15 with a pressure support of 4. She has history of other comorbid conditions including hypertension, rheumatoid arthritis, chronic pain, including chronic back pain and previous history of infections with Covid 19 from which she recovered. She has also history was 2., Osteoarthritis, restless leg, gout and impaired hearing During this current admission, the patient presented to us from [facility] for worsening shortness of breath.. The patient was quite somnolent and lethargic and tachypneic at the time of emergency presentation. This [facility] the [facility] facility. She was found to be lethargic while being on her BiPAP machine. The patient was arousable to sternal rub, yet she will go to sleep if left on terminated. Upon arrival she was immediately placed on a BiPAP. She was placed on a pressure of 12/6 cm of water. The generated tidal volume was low at around 150, and the patient had an elevated respiratory rate. Based on that, I modified the BiPAP to pressures of 15/6 cm of water. The patient is on FiO2 of 40%. Her tidal volume on a mechanical ventilator is around 250 mL. A chest x-ray was done that showed mild cardiomegaly without any Acute cardiac pulmonary process. The patient also had a blood gas that showed a pH of 7.34 with a pCO2 of 84 and pO2 of 80 and this was an FiO2 of 40% while being in the BiPAP. The echoes at 12.2 with a hemoglobin of 14 and a platelet count of 127. Serum bicarb is 49, sodium is at 139, potassium level is at 3.7. Troponin is at 0.04. LFTs are normal. On today's evaluation of 01/05/2023, the patient has done great progress. I was very much concerned and the patient is going to get intubated yesterday. I try not to intubated the patient has advanced COPD and we managed with noninvasive positive pressure ventilatory with BiPAP at a pressure of 15/6 cm of water. After she arrived to the ICU, she gradually improved. She became much more a lert and awake. She was briefly taken off the BiPAP, however overnight, she was kept on a BiPAP for further support. This morning, she is off the BiPAP and she is currently on oxygen at 3 L. There is adequate air entry bilaterally although the patient remains bronchospastic and wheezy. Chest x-ray does not show any acute abnormalities on today's evaluation. The patient otherwise is on fluids at KVO. She is on albuterol neb blotchiness 4 times a day, Pulmicort Respules 0.5 mg twice a day, IV Solu-Medrol 60 mg every 6 hours, she is also on a combination of cefepime, vancomycin that was started yesterday on an empiric basis for a possibility of underlying pneumonia. I think it's safe to discontinue the vancomycin at least for now. The primary care team also added doxycycline. The MUGA scan is at 6.5 with a hemoglobin 12.3 and a platelet count of 131. Serum bicarbs of 47. BUN is at 30 with a creatinine of 0.7 and a sodium level is at 138. She is afebrile. She is awake and alert. Should be able to eat and the patient was offered breakfast and I was told that she ate 100% of her breakfast. 01/06/2023, the patient is fully alert and awake and oriented. She is off the BiPAP and she is currently on oxygen at 3 L nasal cannula. No new complaints for now.Acute COPD exacerbation is being treated with a combination of albuterol nebulized treatments 4 times a day, Pulmicort Respules 0.5 mg twice a day, Perforomist embolus treatments twice a day, theophylline 400 mg by mouth daily, IV Solu-Medrol which is still running at a dose of 60 mg IV every 6 hours. Her antibiotic coverage is with IV cefepime. The bloodwork from today shows a WBC count of 15 with a hemoglobin of 11.7 and a platelet count of 143. Bicarb is at 40. Sodiums of 140 with a potassium level of 3.6. Blood glucose is 216 and the calcium levels at 3.2. Clinically, the patient is doing well. No complaints patient should be able to transfer outside intensive care unit. On 01/07/2023, the patient is on a medical floor. The patient got transferred out of the intensive care unit yesterday. Awake and alert. No signs of any CO2 narcosis. Remains on the same respiratory medications and combination with that she is receiving IV Solu-Medrol. She is becoming progressively more cushingoid. She has a VPAP from home and she has a BiPAP at the bedside. No altered mentation. Tolerating her diet. No nausea or vomiting cannot now. No chest pain.Very limited performance of functional status due to advanced COPD. Blood sugars at 227. Sodium is at 142 with a BUN of 38 and a creatinine of 0.6. The patient is seen today 01/08/2023 in follow-up on the regular medical floor. She is currently sitting up in bed. Awake and alert in no acute distress. She is still dyspneic with conversation. Dyspneic with minimal activity. She is currently maintaining O2 saturations in the 90s on 4 L/m per nasal cannula. She is on BiPAP 15/6 at 40% at night and during the day while mapping. Sodium 142. Potassium 3.8. Bicarb 50. BUN 38. Creatinine 0.68. Glucose 153. She is currently on albuterol, Pulmicort and Perforomist inhalations, Spiriva, Singulair, theophylline. Antibiotics in the form of cefepime. Heparin for DVT prophylaxis. Remains on oral diuretics. Patient was reevaluated today on 01/09/2023, I was rounding on the fifth floor early this morning, and I was notified about this patient having severe respiratory distress. Walks into the room, patient is on BiPAP, however she seems to be extremely restless agitated, and keeps pulling the BiPAP off. Patient is not following any instructions, she is thrashing all over the bed, and extremely agitated, tachypneic, tachycardic. Patient was given 0.5 mg of Ativan to calm her down, did not seem to help much, hence I have arranged for the patient to be transferred to the ICU upon arrival to the ICU, patient remained restless and agitated, and kept pulling her BiPAP mask off, then I went ahead and intubated the patient and she was placed on mechanical ventilation. Patient was placed on assist control rate of 201 of 450 FiO2 50% and PEEP of 5. ABG showed a pO2 of 279 pCO2 of 55 pH of 7.42, hence I cut down her rate from 20-16. Kept her on the same tidal volume, and I'm recommending titrating her FiO2 down from 50% maintaining O2 saturation above 92%. After intubating the patient patient was noted to remain hypotensive hence I recommended 2 L of fluid boluses given, did not improve much hence the patient was started on norepinephrine to titrate for a mean arterial pressure of 65 or higher. In addition to intubating the patient, patient had a central line placed in her right IJ, and she also had an arterial line placed. Chest x-ray 06 intubation and post lines placement showed appropriate position of the endotracheal tube, there was no evidence of pneumothorax, Prozac appropriate position of the right IJ central line, there was small areas of atelectasis and tiny pleural effusions. Remaining labs are pending, blood cultures are pending. Patient is empirically on antibiotics, she is on GI and DVT prophylaxis, and I was able to place a nasogastric tube, and recommended starting the patient on enteral feeding. Objective - Vital Signs Vital signs: Vital Signs Temp 98.5 F 01/09/23 10:30 Pulse 93 01/09/23 11:00 Resp 22 01/09/23 11:00 BP 160/76 01/09/23 07:03 Pulse Ox 93 L 01/09/23 11:00 FiO2 50 01/09/23 10:30 Intake & Output 01/08/23 01/09/23 01/09/23 18:59 06:59 18:59 Intake Total 120 2008.665 Output Total 1525 300 15 Balance -1525 -180 665 Intake: IV 2000 Sodium Chloride 0.9% 2, 2000 000 ml @ 999 mls/hr IV . Q2H1M [facility] Rx#:[id number] Intake, IV Titration 9.665 Amount Norepinephrine 4 mg In 5.31 Sodium Chloride 0.9% 250 ml @ 0.03 MCG/KG/MIN 9. 956 mls/hr IV .Q24H [facility] Rx#:[id number] propofoL 1,000 mg In 4.355 Empty Bag 1 bag @ 20 MCG/ KG/MIN 10.452 mls/hr IV . Q9H35M [facility] Rx#:[id number] Oral 120 Output: Urine 1525 300 15 Other: Voiding Method Indwelling Catheter Indwelling Catheter Indwelling Catheter # Bowel Movements 1 ABP, PAP, CO, CI - Last Documented Arterial Blood Pressure 77/33 - Exam Physical Exam: Revealed 67-year-old female agitated, restless, tachycardic, tachypneic, pulling off her BiPAP mask, not following any instructions. Head: Atraumatic, normocephalic, patient is cushingoid. HEENT:[Neck is supple.] [No neck masses.] [No thyromegaly.] [No JVD.] Chest: [Symmetrical chest expansion, extremely diminished breath sound bilaterally. Cardiac Exam: [Tachycardic, Normal S1 and S2, no S3 gallop, no murmur.] Abdomen: [Soft, nontender, no megaly, no rebound, no guarding, normal bowel sounds.] Extremities: [No clubbing, no edema, no cyanosis.] Neurological Exam: Agitated and restless, nonpurposeful movement of all extremities. Unable to follow any instructions. Psychiatric: Agitated, could not assess. Skin: Multiple areas of bruising related to chronic use of steroids - Labs CBC & Chem 7: 01/06/23 05:36 01/08/23 05:07 Labs: Abnormal Lab Results - Last 24 Hours (Table) 01/08/23 01/08/23 01/09/23 Range/Units 17:12 19:59 09:47 ABG pCO2 55 H (35-45) mmHg ABG pO2 279 H (83-108) mmHg ABG HCO3 36 H (21-25) mmol/L ABG Total CO2 38 H (19-24) mmol/L ABG O2 Saturation 100.0 H (94-97) % POC Glucose (mg/dL) 158 H 153 H (70-110) mg/dL Assessment and Plan Assessment: Impression: Acute on chronic hypoxic and hypercapnic respiratory failure requiring intubation and mechanical ventilation on 01/09/2022. Sepsis and possible septic shock with hypotension requiring fluid boluses followed by norepinephrine infusion. Severe end-stage COPD. Acute exacerbation of COPD. 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 Recommendation: Continue ventilatory support. Patient will be kept in the ICU Patient was intubated and mechanically ventilated. Continue bronchodilators and antibiotics Check sputum cultures and blood cultures Hemodynamic support/pressors since the patient did not respond well to fluid boluses GI and DVT prophylaxis Stress doses of hydrocortisone since the patient is hypotensive and she is chronically on prednisone Patient will be very difficult to wean , however this would be addressed in the next couple of days. May have to consider tracheostomy and PEG tube placement on this patient considering the severity of her COPD. Prognosis is extremely poor and guarded. Critical care time is over 30 minutes not including the time spent on procedures. Time with Patient: Greater than 30
[2023-01-09 12:49] LABS: Glucose,Whole Blood 92 mg/dL (70-110)
--- NOTE | 2023-01-09 12:54 | OP ---
OPERATIVE REPORT DATE OF SERVICE : PROCEDURE PERFORMED: Placement of right IJ triple-lumen catheter. PREOPERATIVE DIAGNOSES: Acute hypoxic and hypercapnic respiratory failure and hypotension. POSTOPERATIVE DIAGNOSIS: Acute hypoxic and hypercapnic respiratory failure and hypotension. ANESTHESIA USED: 2 mL of 1% lidocaine. DESCRIPTION OF PROCEDURE: The patient was placed in a Trendelenburg position, the area of the right cervical region was prepared in a sterile fashion. Drapes were applied. The area of the right cervical region was locally anesthetized with lidocaine. Then using the central approach, the right IJ vein was easily cannulated, and a guidewire was placed. The area around the guidewire was dilated, then a triple-lumen catheter was inserted over the guidewire, and the guidewire was removed. Good blood flow was noted in the 3 different ports of the triple lumen catheter. Line was secured using 3.0 silk sutures. Chest x-ray showed adequate placement and no complications. MMODL / IJN: [id number] /
--- NOTE | 2023-01-09 12:59 | OP ---
OPERATIVE REPORT DATE OF SERVICE : PROCEDURES PERFORMED: Endotracheal intubation and mechanical ventilation. PREOPERATIVE DIAGNOSIS: Acute hypoxic and hypercapnic respiratory failure. POSTOPERATIVE DIAGNOSIS: Acute hypoxic and hypercapnic respiratory failure. ANESTHESIA USED: The patient received 50 mg of propofol, 5 mg of morphine sulfate, and 75 mg of succinylcholine. DESCRIPTION OF PROCEDURE: The patient was placed in a supine position, she received an adequate tenacious sedation along with the succinylcholine. In the meantime, the patient was Ambu bagged. A GlideScope was used, a size 4 blade was used, the tongue was depressed and I was able to visualize the vocal cords. A size 8 endotracheal tube was used and was inserted through the vocal cords down to the trachea, the cuff was inflated, the patient was Ambu bagged and there was a color change. The tube was secured at 22 cm at the lip. Chest x-ray postoperatively showed adequate placement of the endotracheal tube. The patient was connected to mechanical ventilation. The procedure was well tolerated. No complications. MMODL / IJN: [id number] /
--- NOTE | 2023-01-09 14:15 | OP ---
OPERATIVE REPORT DATE OF SERVICE : PROCEDURE PERFORMED: Placement of a left brachial arterial line. PREOPERATIVE DIAGNOSES: Acute hypoxic and hypercapnic respiratory failure and hypotension. POSTOPERATIVE DIAGNOSES: Acute hypoxic and hypercapnic respiratory failure and hypotension. ANESTHESIA USED: None deployed. DESCRIPTION OF PROCEDURE: The left brachial region was prepared in a sterile fashion, and drapes were applied. The left brachial artery was palpated, cannulated, and a guidewire was placed. A Cook catheter was inserted over the guidewire, and the guidewire was removed. Good blood flow noted. Good waveform noted. No complications. Line was secured using 3-0 silk sutures. This was done under emergency situation. MMODL / IJN: [id number] /
[2023-01-09] MEDS ORDERED: ALBUTEROL NEBULIZED 2.5 MG/3 ML INHALATION PRN (16:45)
[2023-01-09 18:04] LABS: Glucose,Whole Blood 129 mg/dL (70-110)
--- NOTE | 2023-01-09 19:39 | P.PN ---
Subjective Progress Note Date: 01/09/23 This is a pleasant 67 years old female with past medical history of advanced COPD advanced COPD on home oxygen dependent on 3-4 L at all times, obstructive sleep apnea CPAP dependent nightly, diastolic CHF hypertension, iron deficiency anemia, rheumatoid arthritis, and chronic back pain who presented to the ER because of worsening shortness of breath for a few days duration Patient currently is lying in bed in the emergency room 6, with BiPAP machine on with parameters of 15/6, FiO2 of 40%. Patient is tachypneic breathing with direct about 34-37. Patient looks tired and she could not provide much information, she cannot talk but she is awake and oriented. She follows commands. She has minimal chest movement with expiratory wheezing. She denies any pain, no chest pain she denies any GI or urinary symptoms. She moves all extremities symmetrically. vitals reviewed and patient is afebrile. Mild Leukocytosis of 12.2, Mild Thrombocytopenia 127. Hemoglobin Normal. INR 0.9. VBG Showing High PCO2 of 84, Low pH of 7.3. BNP showing high carbon dioxide at 49, creatinine normal. Liver enzymes not elevated. Troponin negative. ProBNP is 301. Glucose 128. Chest x-ray reviewed by myself showing enlarged heart with COPD changes. Minimal chest congestion. Patient started on dexamethasone, albuterol. EKG showing normal sinus rhythm at [address]-T changes. 01/05/2023 Patient remains in the ICU, she required BiPAP all the ninth yesterday except for one hour she got some rest. Today patient showed significant improvement, she is more alert awake, pleasant. Her mentation is back to normal. Her breathing is also improving with decrease respiratory rate into 18-20, per to more than 30 yesterday. Repeat chest x-ray looks similar findings to yesterday with no obvious infiltrate or consolidation. The heart is mildly enlarged, just x-ray reviewed by myself. Other vitals and labs looks stable. pro-calcitonin is slightly elevated at 0.20 She is currently receiving IV Solu-Medrol 60 mg as well as broad-spectrum antibiotics with vancomycin and cefepime Until doxycycline. Also she is on IV Lasix daily. 01/06/2023 pt today is significantly improved , she can talk easily off the bipap machine in the moring although she was using all night, she requires few liter of oxgyen per min like 4 only Because of significant improvement and she was moved out of the ICU Her treatment was the risk related, antibiotics vancomycin and doxycycline were stopped and Cefepime. IV Lasix Switched to Oral Dose of 40 Mg Daily. While She Kept on High Dose of IV Solu-Medrol 60 Mg. 01/07/2023 Patient today having some more breathing difficulty compared to yesterday however she still looks greatly although she still have some wheezing. She is saturating 90s on 4 L oxygen via nasal cannula, no much of accessory muscles and she can talk more freely. Her chest x-ray today showing worse than admission when I reviewed it but most likely this is because of the technique. She remains on IV Solu-Medrol, 60 mg. Cefepime, oral Lasix 40 mg daily. Patient did not need BiPAP last night. Patient wants to keep the [place] cath in Place because it's harder for her to get up 01/08/2023 Patient seen and evaluated in follow-up today with pulmonary following closely. Patient is continued on 4 L via nasal cannula as well as BiPAP. Patient continues on oral steroids along with inhalers and cefepime. Patient was started on cefepime empirically for concerns of pneumonia. Patient continues to be extremely dyspneic with minimal exertion and would recommend weaning FiO2 as tolerated. Patient normally wears a CPAP and has one for the outpatient setting although would recommend continuing with BiPAP especially at night from 8 PM to 6 AM. Continue BiPAP as needed as well. Patient extremely weak and has been progressively getting more weak with each admission. Patient has been hospitalized very frequently most recently and clinically very slow to improve. Case management following as there will be plans to return to rehab or possible inpatient rehab. Will await PT/OT therapy evaluation. Patient is currently afebrile denies chest pain or palpitations. Patient reports she is tolerating diet with no reports of nausea or vomiting noted. 01/09/2023 Patient is seen and evaluated in follow up today and per nursing staff was found this morning with her oxygen and BIpap mask off and O2 saturations in the 60's. Patient was placed back on bipap and numbers improved slightly although continued to be restless, combative, and not following commands. Ordered ativan to calm and was not effective. Patient extremely dyspneic and tachypneic and working with accessory muscle use. Luckily, pulmonary was rounding on the unit and ordered transfer to ICU for possible intubation and close monitoring. Patient is afebrile and continued on cefepime empirically and sputum cultures ordered. continued on breathing treatments as well as oral prednisone. Review of systems: unable to obtain as patient is confused, restless. All medications have been reviewed Active Medications Acetaminophen (Acetaminophen Tab 500 Mg Tab) 1,000 mg PO Q6HR PRN PRN Reason: Fever and/ or Pain Last Admin: 01/05/23 20:15 Dose: 1,000 mg Albuterol Sulfate (Albuterol Nebulized 2.5 Mg/3 Ml) 2.5 mg INHALATION RT-QID [facility] Albuterol Sulfate (Albuterol Nebulized 2.5 Mg/3 Ml) 2.5 mg INHALATION RT-QID PRN PRN Reason: Shortness Of Breath Or Wheezing Artificial Tears (Artificial Tears-Hypromellose Drops 15 Ml Btl) 2 drops BOTH EYES QID PRN PRN Reason: Dry Eye(s) Budesonide (Budesonide 0.5 Mg/2 Ml Nebu) 0.5 mg INHALATION RT-BID [facility] Last Admin: 01/09/23 08:22 Dose: 0.5 mg Chlorhexidine Gluconate (Chlorhexidine Gluconate 15 Ml Cup) 15 ml MUCOUS MEM BID [facility] Dextrose/Water (Dextrose 50% Syringe 50 Ml) 25 ml IVP PER PROTOCOL PRN; Protocol PRN Reason: Hypoglycemia Dextrose/Water (Dextrose 50% Syringe 50 Ml) 50 ml IVP PER PROTOCOL PRN; Protoco l PRN Reason: Hypoglycemia Duloxetine HCl (Duloxetine Hcl 30 Mg Capsule.Dr) 30 mg PO DAILY@0600 [facility] Last Admin: 01/09/23 05:39 Dose: 30 mg Formoterol Fumarate (Formoterol Fumarate 20 Mcg/2 Ml Nebu) 20 mcg INHALATION RT-BID [facility] Last Admin: 01/09/23 08:22 Dose: 20 mcg Furosemide (Furosemide 10 Mg/Ml 2 Ml Vial) 20 mg IV DAILY [facility] Heparin Sodium (Porcine) (Heparin Sodium,Porcine/Pf 5,000 Unit/0.5 Ml Syringe) 5,000 unit SQ Q12HR [facility] Last Admin: 01/09/23 08:35 Dose: 5,000 unit Sodium Chloride (Saline 0.9%) 1,000 mls @ 20 mls/hr IV .Q24H [facility] Last Admin: 01/08/23 17:26 Dose: 20 mls/hr Cefepime HCl 2 gm/ Sodium (Chloride) 100 mls @ 25 mls/hr IVPB Q12HR [facility]; Protocol Last Admin: 01/09/23 08:34 Dose: 25 mls/hr Propofol 1,000 mg/ IV Solution 100 mls @ 10.452 mls/hr IV .Q9H35M [facility]; Protocol Last Admin: 01/09/23 14:55 Dose: 30 mcg/kg/min, 15.678 mls/hr Norepinephrine Bitartrate 4 mg (/ Sodium Chloride) 254 mls @ 9.956 mls/hr IV .Q24H [facility]; Protocol Last Titration: 01/09/23 18:50 Dose: 0.05 mcg/kg/min, 16.593 mls/hr Insulin Aspart (Insulin Aspart (Novolog) 100 Unit/Ml Vial) 0 unit SQ Q6H [facility]; Protocol Last Admin: 01/09/23 18:59 Dose: Not Given Ipratropium [place] (Ipratropium 0.5 Mg/2.5 Ml Nebu) 0.5 mg INHALATION RT-QID [facility] Miscellaneous Information (Potassium Replacement Protocol 1 Each Misc) 1 each MISCELLANE DAILY PRN; Protocol PRN Reason: Per Protocol Miscellaneous Information (Magnesium Replacement Protocol 1 Each Misc) 1 each MISCELLANE DAILY PRN; Protocol PRN Reason: Per Protocol Montelukast Sodium (Montelukast 10 Mg Tab) 10 mg PO [facility] Last Admin: 01/08/23 20:26 Dose: 10 mg Naloxone HCl (Naloxone 0.4 Mg/Ml 1 Ml Vial) 0.2 mg IV Q2M PRN PRN Reason: Opioid Reversal Duoneb ([id number] (/Ipratropium0.5mg)) 1 each INHALATION RT-QID [facility] Last Admin: 01/09/23 16:12 Dose: 1 each Pantoprazole Sodium (Pantoprazole 40 Mg/10 Ml Vial) 40 mg IVP BID [facility] Ropinirole HCl (Ropinirole Hcl 4 Mg Tablet) 4 mg PO HS [facility] Last Admin: 01/08/23 21:15 Dose: 4 mg Theophylline (Theophylline 24 Hour 400 Mg Cap.Er.24h) 400 mg PO DAILY@0600 [facility] Last Admin: 01/09/23 05:39 Dose: 400 mg Tobramycin/Dexamethasone (Tobra-Dexamet 0.3-0.1% Ophth Drops 2.5 Ml Btl) 2 drops RIGHT EYE Q4HR [facility] Last Admin: 01/09/23 16:06 Dose: 2 drops Verapamil HCl (Verapamil Sr 120 Mg Tablet.Er) 120 mg PO DAILY@0600 [facility] Last Admin: 01/09/23 05:39 Dose: 120 mg Physical exam : GENERAL: The patient is alert and oriented x0, confused, altered, combative, and restless in respiratory distress. Well developed, well nourished. Not following commands HEENT: Pupils are round and equally reacting to light. EOMI. No scleral icterus. No conjunctival pallor. Normocephalic, atraumatic. No pharyngeal erythema. No thyromegaly. CARDIOVASCULAR: S1 and S2 muffled, tachy PULMONARY: diminished breath sounds bilaterally with course rhonchi and faint crackles noted at the bases. accessory muscle use noted ABDOMEN: Soft, nontender, obese. nondistended, normoactive bowel sounds. No palpable organomegaly. MUSCULOSKELETAL: No joint swelling or deformity. EXTREMITIES: No cyanosis, clubbing, or pedal edema. NEUROLOGICAL: unable to assess, not following commands, appears to have CO2 narcosis, thrashing about in bed SKIN: No rashes. no petechiae. Assessment: Acute COPD exacerbation Acute on chronic hypoxic respiratory failure patient is normally at home on 3 L nasal cannula, now requriing mechanical ventilation on 01/09/2023 Acute respiratory acidosis Altered mental status possibly secondary to C02 narcosis sepsis, with septic shock and hypotension, requiring pressor support Acute on chronic hypercapnic respiratory failure Chronic leukocytosis History of COVID-19 pneumonia Benign essential hypertension History of rheumatoid osteoarthritis Chronic back pain Former smoker Full code Plan: Recommend continue with current medications and oxygen supplementation. Patient with worsening respiratory status and pulmonary evaluated the patient recommending ICU transfer and possible intubation. Patient was placed on mechanical vent with an FI02 of 50% and peep of 5. Recommend NG tube and transitioning lasix to low dose IV, chest xray with pleural effusions. Continued on oral steroids, possibly IV per pulmonary Recommend follow up labs and chest xray in am Patient continued on IV cefepime per pulmonary for empiric treatment for concern s for pneumonia and sputum culture sent recommend monitoring blood sugars per protocol Due to multiple complex medical issues, overall prognosis is extremely poor and guarded The impression and plan of care has been dictated by Teresa Portillo, Nurse Practitioner as directed. Dr. Joey MD I have performed a history and examination and MDM of this patient, discussed the same with the dictator, and agree with the dictator's assessment and plan as written ,documented as a scribe. Based on total visit time, I have performed more than 50% of the visit. Objective - Vital Signs Vital signs: Vital Signs Temp 99.0 F 01/09/23 07:03 Pulse 139 H 01/09/23 08:45 Resp 22 01/09/23 07:03 BP 160/76 01/09/23 07:03 Pulse Ox 93 L 01/09/23 07:03 FiO2 40 01/09/23 08:22 Intake & Output 01/08/23 01/09/23 01/09/23 18:59 06:59 18:59 Intake Total 120 Output Total 1525 300 Balance -1525 -180 Intake: Oral 120 Output: Urine 1525 300 Other: Voiding Method Indwelling Catheter Indwelling Catheter Indwelling Catheter # Bowel Movements 1 - Labs CBC & Chem 7: 01/06/23 05:36 01/09/23 10:52 Labs: Abnormal Lab Results - Last 24 Hours (Table) 01/08/23 01/08/23 01/08/23 Range/Units 11:13 17:12 19:59 POC Glucose (mg/dL) 181 H 158 H 153 H (70-110) mg/dL
[2023-01-09] MEDS: ALBUTEROL NEBULIZED 2.5 MG/3 ML INHALATION SCH (20:55)
[2023-01-09] MEDS: IPRATROPIUM 0.5 MG/2.5 ML NEBU INHALATION SCH (20:55)
[2023-01-09] MEDS: CHLORHEXIDINE GLUCONATE 15 ML CUP MUCOUS MEM SCH (21:17)
[2023-01-09] MEDS: PANTOPRAZOLE 40 MG/10 ML VIAL IVP SCH (21:17)
[2023-01-09] MEDS: MONTELUKAST 10 MG TAB PO SCH (21:18)
[2023-01-09] MEDS: rOPINIRole HCL 4 MG TABLET PO SCH (21:49)
[2023-01-09 23:28] LABS: Glucose,Whole Blood 149 mg/dL (70-110)
[2023-01-10] MEDS: TOBRA-DEXAMET 0.3-0.1% OPHTH DROPS 2.5 ML BTL RIGHT EYE SCH ×6 (00:38→20:03)
[2023-01-10] MEDS: INSULIN ASPART (NovoLOG) 100 UNIT/ML VIAL SQ SCH ×4 (00:51→18:26)
[2023-01-10] MEDS: NOREPINEPHRINE 4 MG in SODIUM CHLORIDE 0.9% 250 ML IV SCH (03:26)
[2023-01-10] MEDS: SODIUM CHLORIDE 0.9% 1,000 ML IV SCH (03:36)
[2023-01-10 04:10] LABS: Basophils % (A) 0 %; Eosinophils # (A) 0.1 k/uL (0-0.7); Eosinophils % (A) 2 %; HCT 36.8 % (34.0-46.0); HGB 11.6 gm/dL (11.4-16.0); Lymphocytes # (A) 0.6 k/uL (1.0-4.8); Lymphocytes % (A) 8 %; MCH 31.5 pg (25.0-35.0); MCHC 31.5 g/dL (31.0-37.0); MCV 99.8 fL (80.0-100.0); Macrocytosis Slight; Mean Platelet Volume 10.4; Monocytes # (A) 0.2 k/uL (0-1.0); Monocytes % (A) 3 %; Neutrophils % (A) 87 %; Platelet Count 135 k/uL (150-450); RBC 3.69 m/uL (3.80-5.40); RDW 15.3 % (11.5-15.5)
[2023-01-10 04:33] LABS: Magnesium 2.3 mg/dL (1.6-2.3); Potassium 3.7 mmol/L (3.5-5.1)
[2023-01-10] MEDS: DULoxetine HCL 30 MG CAPSULE.DR PO SCH (05:39)
[2023-01-10] MEDS: VERAPAMIL SR 120 MG TABLET.ER PO SCH (05:40)
[2023-01-10] MEDS: THEOPHYLLINE 24 HOUR 400 MG CAP.ER.24H PO SCH (05:40)
[2023-01-10] MEDS ORDERED: POTASSIUM BICARBONATE/CIT AC 20 MEQ TABLET.EFF NG-TUBE SCH ×2 (06:00→13:00)
[2023-01-10 06:06] LABS: Glucose,Whole Blood 104 mg/dL (70-110)
[2023-01-10 06:49] LABS: ABG Base Excess 7.2 mmol/L; ABG HCO3 32 mmol/L (21-25); ABG Oxygen Saturation 96.6 % (94-97); ABG PCO2 52 mmHg (35-45); ABG PO2 79 mmHg (83-108); ABG TCO2 34 mmol/L (19-24); Allen Test Performed? Yes
--- NOTE | 2023-01-10 06:49 | XR ---
EXAMINATION TYPE: XR chest 1V portable DATE OF EXAM: 01/10/2023 CLINICAL HISTORY: Difficulty breathing progress study. TECHNIQUE: Single AP portable semiupright view of the chest is obtained. COMPARISON: Chest x-ray from one day earlier and older studies. FINDINGS: Stable endotracheal and orogastric tubes. Stable right jugular central venous catheter. Patchy bibasilar opacities and small right pleural effusion on current study. Upper lungs remain abena r. Cardiac silhouette size stable and upper limits of normal. Osseous structures are intact. IMPRESSION: Persistent small right pleural effusion and patchy bibasilar atelectasis and/or infiltrat es. No significant change from one day earlier.
[2023-01-10] MEDS: ALBUTEROL NEBULIZED 2.5 MG/3 ML INHALATION SCH ×4 (07:48→20:20)
[2023-01-10] MEDS: FORMOTEROL FUMARATE 20 MCG/2 ML NEBU INHALATION SCH ×2 (07:48→20:20)
[2023-01-10] MEDS: BUDESONIDE 0.5 MG/2 ML NEBU INHALATION SCH (07:48)
[2023-01-10] MEDS: IPRATROPIUM 0.5 MG/2.5 ML NEBU INHALATION SCH ×4 (07:49→20:20)
[2023-01-10] MEDS: CHLORHEXIDINE GLUCONATE 15 ML CUP MUCOUS MEM SCH ×2 (09:26→20:36)
[2023-01-10] MEDS: HEPARIN SODIUM,PORCINE/PF 5,000 UNIT/0.5 ML SYRINGE SQ SCH ×2 (09:27→20:34)
[2023-01-10] MEDS: FUROSEMIDE 10 MG/ML 2 ML VIAL IV SCH (09:27)
[2023-01-10] MEDS: PANTOPRAZOLE 40 MG/10 ML VIAL IVP SCH ×2 (09:27→20:34)
[2023-01-10] MEDS: CEFEPIME 2 GM in SODIUM CHLORIDE 0.9% 100 ML IVPB SCH ×2 (11:04→20:35)
--- NOTE | 2023-01-10 11:36 | P.PN ---
Subjective Progress Note Date: 01/10/23 Principal diagnosis: Acute hypoxic and hypercapnic respiratory failure secondary to acute exacerbation of COPD 67-year-old female patient with advanced end-stage COPD with frequent hospitalizations was been listed and subsequently deactivated from lung transplant list at [facility], coming in for another exacerbation. The patient was discharged from the hospital on 01/25/2023 after having a prolonged hospitalization for COPD exacerbation and acute on top of chronic hypoxic and hypercapnic respiratory failure. Note that the patient has advanced and chronic COPD, chronic action dependence maintain on oxygen at 3 L, chronic hypercapnic respiratory failure maintained on a VPAP auto with an EPAP minimum of 5 and a maximum pressure of 15 with a pressure support of 4. She has history of other comorbid conditions including hypertension, rheumatoid arthritis, chronic pain, including chronic back pain and previous history of infections with Covid 19 from which she recovered. She has also history was 2., Osteoarthritis, restless leg, gout and impaired hearing During this current admission, the patient presented to us from [facility] for worsening shortness of breath.. The patient was quite somnolent and lethargic and tachypneic at the time of emergency presentation. This started at the [facility] facility. She was found to be lethargic while being on her BiPAP machine. The patient was arousable to sternal rub, yet she will go to sleep if left on terminated. Upon arrival she was immediately placed on a BiPAP. She was placed on a pressure of 12/6 cm of water. The generated tidal volume was low at around 150, and the patient had an elevated respiratory rate. Based on that, I modified the BiPAP to pressures of 15/6 cm of water. The patient is on FiO2 of 40%. Her tidal volume on a mechanical ventilator is around 250 mL. A chest x-ray was done that showed mild cardiomegaly without any Acute cardiac pulmonary process. The patient also had a blood gas that showed a pH of 7.34 with a pCO2 of 84 and pO2 of 80 and this was an FiO2 of 40% while being in the BiPAP. The echoes at 12.2 with a hemoglobin of 14 and a platelet count of 127. Serum bicarb is 49, sodium is at 139, potassium level is at 3.7. Troponin is at 0.04. LFTs are normal. On today's evaluation of 01/05/2023, the patient has done great progress. I was very much concerned and the patient is going to get intubated yesterday. I try not to intubated the patient has advanced COPD and we managed with noninvasive positive pressure ventilatory with BiPAP at a pressure of 15/6 cm of water. After she arrived to the ICU, she gradually improved. She became much more a lert and awake. She was briefly taken off the BiPAP, however overnight, she was kept on a BiPAP for further support. This morning, she is off the BiPAP and she is currently on oxygen at 3 L. There is adequate air entry bilaterally although the patient remains bronchospastic and wheezy. Chest x-ray does not show any acute abnormalities on today's evaluation. The patient otherwise is on fluids at KVO. She is on albuterol neb blotchiness 4 times a day, Pulmicort Respules 0.5 mg twice a day, IV Solu-Medrol 60 mg every 6 hours, she is also on a combination of cefepime, vancomycin that was started yesterday on an empiric basis for a possibility of underlying pneumonia. I think it's safe to discontinue the vancomycin at least for now. The primary care team also added doxycycline. The MUGA scan is at 6.5 with a hemoglobin 12.3 and a platelet count of 131. Serum bicarbs of 47. BUN is at 30 with a creatinine of 0.7 and a sodium level is at 138. She is afebrile. She is awake and alert. Should be able to eat and the patient was offered breakfast and I was told that she ate 100% of her breakfast. 01/06/2023, the patient is fully alert and awake and oriented. She is off the BiPAP and she is currently on oxygen at 3 L nasal cannula. No new complaints for now.Acute COPD exacerbation is being treated with a combination of albuterol nebulized treatments 4 times a day, Pulmicort Respules 0.5 mg twice a day, Perforomist embolus treatments twice a day, theophylline 400 mg by mouth daily, IV Solu-Medrol which is still running at a dose of 60 mg IV every 6 hours. Her antibiotic coverage is with IV cefepime. The bloodwork from today shows a WBC count of 15 with a hemoglobin of 11.7 and a platelet count of 143. Bicarb is at 40. Sodiums of 140 with a potassium level of 3.6. Blood glucose is 216 and the calcium levels at 3.2. Clinically, the patient is doing well. No complaints patient should be able to transfer outside intensive care unit. On 01/07/2023, the patient is on a medical floor. The patient got transferred out of the intensive care unit yesterday. Awake and alert. No signs of any CO2 narcosis. Remains on the same respiratory medications and combination with that she is receiving IV Solu-Medrol. She is becoming progressively more cushingoid. She has a VPAP from home and she has a BiPAP at the bedside. No altered mentation. Tolerating her diet. No nausea or vomiting cannot now. No chest pain.Very limited performance of functional status due to advanced COPD. Blood sugars at 227. Sodium is at 142 with a BUN of 38 and a creatinine of 0.6. The patient is seen today 01/08/2023 in follow-up on the regular medical floor. She is currently sitting up in bed. Awake and alert in no acute distress. She is still dyspneic with conversation. Dyspneic with minimal activity. She is currently maintaining O2 saturations in the 90s on 4 L/m per nasal cannula. She is on BiPAP 15/6 at 40% at night and during the day while mapping. Sodium 142. Potassium 3.8. Bicarb 50. BUN 38. Creatinine 0.68. Glucose 153. She is currently on albuterol, Pulmicort and Perforomist inhalations, Spiriva, Singulair, theophylline. Antibiotics in the form of cefepime. Heparin for DVT prophylaxis. Remains on oral diuretics. Patient was reevaluated today on 01/09/2023, I was rounding on the fifth floor early this morning, and I was notified about this patient having severe respiratory distress. Walks into the room, patient is on BiPAP, however she seems to be extremely restless agitated, and keeps pulling the BiPAP off. Patient is not following any instructions, she is thrashing all over the bed, and extremely agitated, tachypneic, tachycardic. Patient was given 0.5 mg of Ativan to calm her down, did not seem to help much, hence I have arranged for the patient to be transferred to the ICU upon arrival to the ICU, patient remained restless and agitated, and kept pulling her BiPAP mask off, then I went ahead and intubated the patient and she was placed on mechanical ventilation. Patient was placed on assist control rate of 201 of 450 FiO2 50% and PEEP of 5. ABG showed a pO2 of 279 pCO2 of 55 pH of 7.42, hence I cut down her rate from 20-16. Kept her on the same tidal volume, and I'm recommending titrating her FiO2 down from 50% maintaining O2 saturation above 92%. After intubating the patient patient was noted to remain hypotensive hence I recommended 2 L of fluid boluses given, did not improve much hence the patient was started on norepinephrine to titrate for a mean arterial pressure of 65 or higher. In addition to intubating the patient, patient had a central line placed in her right IJ, and she also had an arterial line placed. Chest x-ray 06 intubation and post lines placement showed appropriate position of the endotracheal tube, there was no evidence of pneumothorax, Prozac appropriate position of the right IJ central line, there was small areas of atelectasis and tiny pleural effusions. Remaining labs are pending, blood cultures are pending. Patient is empirically on antibiotics, she is on GI and DVT prophylaxis, and I was able to place a nasogastric tube, and recommended starting the patient on enteral feeding. Seen today on 01/10/2023, patient is in the ICU, intubated and mechanically ventilated. She is on assist control rate of 16 tidal volume 450 FiO2 50% and PEEP of 5 ABG showed a pO2 79 pCO2 52 pH of 7.40. Patient has been off norepinephrine since 4 AM. She is off propofol this morning, arousable, lethargic, but on physical examination she has diffuse rhonchi and wheezes. Hence no plans to pursue any further weaning trials and she will go back on propofol. Patient is hypertensive, but she is now hypertensive mostly because she is off propofol. Apparently the nurses lost her right IJ central line early this morning, I'm recommending a placement of a PICC line to be placed by interventional radiology this morning. Patient is back on Solu-Medrol, she is on cefepime empirically, cultures of blood and sputum are pending. Chest x-ray showed small right-sided pleural effusion and by basilar patchy atelectasis. Doubt infiltrates. WBC count is 8.0 hemoglobin is 11.6. Assessment normal, renal profile is normal, nutrition-guaman, the patient is receiving enteral feeding. Objective - Vital Signs Vital signs: Vital Signs Temp 99.5 F 01/10/23 08:00 Pulse 100 01/10/23 11:15 Resp 15 01/10/23 11:15 BP 116/59 01/10/23 05:30 Pulse Ox 94 L 01/10/23 10:00 FiO2 50 01/10/23 11:03 Intake & Output 01/09/23 01/10/23 01/10/23 18:59 06:59 18:59 Intake Total 2681.653 891.935 123.988 Output Total 350 805 140 Balance 2331.653 86.935 -16.012 Weight 87.1 kg 90 kg Intake: IV 2400 492 26 0.9 carrier 400 420 20 CVP & ARTERIAL LINE 72 6 Sodium Chloride 0.9% 2, 2000 000 ml @ 999 mls/hr IV . Q2H1M [facility] Rx#:[id number] Intake, IV Titration 221.653 294.935 97.988 Amount Norepinephrine 4 mg In 144.134 111.580 Sodium Chloride 0.9% 250 ml @ 0.03 MCG/KG/MIN 9. 956 mls/hr IV .Q24H [facility] Rx#:[id number] propofoL 1,000 mg In 77.519 183.355 97.988 Empty Bag 1 bag @ 20 MCG/ KG/MIN 10.452 mls/hr IV . Q9H35M [facility] Rx#:[id number] Other 60 105 Output: Urine 350 805 140 Other: Voiding Method Indwelling Catheter Indwelling Catheter Indwelling Catheter ABP, PAP, CO, CI - Last Documented Arterial Blood Pressure 165/54 - Exam Physical Exam: Revealed 67-year-old female, intubated, off propofol, awake, but lethargic. Head: Atraumatic, normocephalic, patient is cushingoid. Early this morning, right IJ central line was lost by the nurse taking care of the patient. HEENT:[Neck is supple.] [No neck masses.] [No thyromegaly.] [No JVD.] Chest: Scattered rhonchi and wheezes noted bilaterally. Symmetrical chest expansion. Cardiac Exam:, Normal S1 and S2, no S3 gallop, no murmur.] Abdomen: [Soft, nontender, no megaly, no rebound, no guarding, normal bowel sounds.] Extremities: [No clubbing, no edema, no cyanosis.] Neurological Exam: Arousable, follows very simple instructions, but lethargic. Psychiatric: Could not assess. Skin: Multiple areas of bruising related to chronic use of steroids - Labs CBC & Chem 7: 01/10/23 03:52 01/10/23 03:50 Labs: Abnormal Lab Results - Last 24 Hours (Table) 01/09/23 01/09/23 01/10/23 Range/Units 18:02 23:26 03:50 RBC (3.80-5.40) m/uL Plt Count (150-450) k/uL Lymphocytes # (1.0-4.8) k/uL ABG pCO2 (35-45) mmHg ABG pO2 (83-108) mmHg ABG HCO3 (21-25) mmol/L ABG Total CO2 (19-24) mmol/L Carbon Dioxide 36 H (22-30) mmol/L BUN 29 H (7-17) mg/dL Glucose 115 H (74-99) mg/dL POC Glucose (mg/dL) 129 H 149 H (70-110) mg/dL Calcium 8.0 L (8.4-10.2) mg/dL 01/10/23 01/10/23 Range/Units 03:52 06:45 RBC 3.69 L (3.80-5.40) m/uL Plt Count 135 L (150-450) k/uL Lymphocytes # 0.6 L (1.0-4.8) k/uL ABG pCO2 52 H (35-45) mmHg ABG pO2 79 L (83-108) mmHg ABG HCO3 32 H (21-25) mmol/L ABG Total CO2 34 H (19-24) mmol/L Carbon Dioxide (22-30) mmol/L BUN (7-17) mg/dL Glucose (74-99) mg/dL POC Glucose (mg/dL) (70-110) mg/dL Calcium (8.4-10.2) mg/dL Microbiology - Last 24 Hours (Table) 01/09/23 09:55 Gram Stain - Preliminary Sputum Sputum Culture - Preliminary Assessment and Plan Assessment: Impression: Acute on chronic hypoxic and hypercapnic respiratory failure requiring in tubation and mechanical ventilation on 01/09/2022. Sepsis and possible septic shock with hypotension requiring fluid boluses followed by norepinephrine infusion. Sputum cultures and blood cultures are pending. Severe end-stage COPD. Acute exacerbation of COPD. 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 Recommendation: Not ready for any weaning especially with her physical exam, patient has diffuse rhonchi and wheezes bilaterally. Monitored in ICU. Arrange for PICC line. Patient will likely have a prolonged ICU stay, and may eventually require tracheostomy PEG tube placement, and possible select care specialty referral Continue ventilatory support, no changes made with the vent settings, no plans to wean the patient today. As a matter of fact considering his severe COPD and recurrent admissions, patient may require tracheostomy and PEG tube placement and this will be decided upon in the next few days. Continue bronchodilators and antibiotics Check sputum cultures and blood cultures GI and DVT prophylaxis Continue nutritional support/enteral feeding Back on Solu-Medrol 60 mg a push every 6 hours Prognosis is extremely poor and guarded. Critical care time is over 30 minutes Time with Patient: Greater than 30
[2023-01-10 11:53] LABS: Glucose,Whole Blood 114 mg/dL (70-110)
[2023-01-10] MEDS: methylPREDNISolone SOD SUCCI 125 MG/2 ML VIAL IV SCH ×2 (12:14→18:27)
--- NOTE | 2023-01-10 14:46 | XR ---
EXAMINATION TYPE: XR chest 1V confirm line [facility] DATE OF EXAM: 01/10/2023 CLINICAL HISTORY: PICC line placement . TECHNIQUE: Single AP portable semiupright view of the chest is obtained. COMPARISON: Chest x-ray from earlier today and older studies FINDINGS: There is no left sided PICC line terminating at the SVC. Stable endotracheal and orogastri c tubes. Interval removal of right-sided central line. Patchy right greater than left bibasilar opacities and small right pleural effusion on current study. Upper lungs remain clear. Cardiac silhouette size stable and mildly enlarged. Osseous structures are intact. IMPRESSION: As above.
--- NOTE | 2023-01-10 14:47 | IR ---
PICC LINE PLACEMENT: HISTORY: Infection requiring long-term antibiotic therapy PROCEDURE: Ultrasound guidance of PICC line placement. TIRE [employer] INSPECTOR: COMPLICATIONS: None ANESTHESIA: 1. 1% Lidocaine locally. FINDINGS/TECHNIQUE: The procedure was explained to the patient. The risks, complications, benefits and alternatives were discussed and any questions were answered. Informed consent was obtained. The patient was placed supine on the fluoroscopic table and prepped and draped in the usual sterile fash ion. Utilizing a 21 gauge needle and sonographic guidance, access in the left cephalic vein was ach ieved and there is placement of a 0.018 guidewire. The vein is patent. A 5-F. sheath was placed ove r the guidewire. The guidewire and dilator were removed and a 5-F. Double lumen PICC line was placed through the sheath with the chest x-ray confirming the tip at the level of the SVC. The sheath was removed, the catheter was flushed and sutured into position. The patient was stable throughout the p rocedure and remained stable upon discharge from the Department of Radiology. The vein puncture was patent under ultrasound. A carranza scale image was obtained to document patency of the vein punctured. All elements of the maximal barrier technique were utilized. IMPRESSION: 1. Successful PICC line placement under ultrasound performed bedside within the ICU.
[2023-01-10 18:23] LABS: Glucose,Whole Blood 186 mg/dL (70-110)
[2023-01-10] MEDS: BUDESONIDE 1 MG/2 ML NEBU INHALATION SCH (20:20)
[2023-01-10] MEDS: rOPINIRole HCL 4 MG TABLET PO SCH (20:36)
[2023-01-10] MEDS: MONTELUKAST 10 MG TAB PO SCH (20:36)
[2023-01-11 00:23] LABS: Glucose,Whole Blood 247 mg/dL (70-110)
[2023-01-11] MEDS: SODIUM CHLORIDE 0.9% 1,000 ML IV SCH ×2 (00:35→18:23)
[2023-01-11] MEDS: INSULIN ASPART (NovoLOG) 100 UNIT/ML VIAL SQ SCH ×4 (00:43→18:24)
[2023-01-11] MEDS: methylPREDNISolone SOD SUCCI 125 MG/2 ML VIAL IV SCH ×4 (00:43→18:23)
[2023-01-11] MEDS: TOBRA-DEXAMET 0.3-0.1% OPHTH DROPS 2.5 ML BTL RIGHT EYE SCH ×6 (00:44→21:18)
--- NOTE | 2023-01-11 03:22 | P.PN ---
Subjective Progress Note Date: 01/10/23 This is a pleasant 67 years old female with past medical history of advanced COPD advanced COPD on home oxygen dependent on 3-4 L at all times, obstructive sleep apnea CPAP dependent nightly, diastolic CHF hypertension, iron deficiency anemia, rheumatoid arthritis, and chronic back pain who presented to the ER because of worsening shortness of breath for a few days duration Patient currently is lying in bed in the emergency room 6, with BiPAP machine on with parameters of 15/6, FiO2 of 40%. Patient is tachypneic breathing with direct about 34-37. Patient looks tired and she could not provide much information, she cannot talk but she is awake and oriented. She follows commands. She has minimal chest movement with expiratory wheezing. She denies any pain, no chest pain she denies any GI or urinary symptoms. She moves all extremities symmetrically. vitals reviewed and patient is afebrile. Mild Leukocytosis of 12.2, Mild Thrombocytopenia 127. Hemoglobin Normal. INR 0.9. VBG Showing High PCO2 of 84, Low pH of 7.3. BNP showing high carbon dioxide at 49, creatinine normal. Liver enzymes not elevated. Troponin negative. ProBNP is 301. Glucose 128. Chest x-ray reviewed by myself showing enlarged heart with COPD changes. Minimal chest congestion. Patient started on dexamethasone, albuterol. EKG showing normal sinus rhythm at [address]-T changes. 01/05/2023 Patient remains in the ICU, she required BiPAP all the ninth yesterday except for one hour she got some rest. Today patient showed significant improvement, she is more alert awake, pleasant. Her mentation is back to normal. Her breathing is also improving with decrease respiratory rate into 18-20, per to more than 30 yesterday. Repeat chest x-ray looks similar findings to yesterday with no obvious infiltrate or consolidation. The heart is mildly enlarged, just x-ray reviewed by myself. Other vitals and labs looks stable. pro-calcitonin is slightly elevated at 0.20 She is currently receiving IV Solu-Medrol 60 mg as well as broad-spectrum antibiotics with vancomycin and cefepime Until doxycycline. Also she is on IV Lasix daily. 01/06/2023 pt today is significantly improved , she can talk easily off the bipap machine in the moring although she was using all night, she requires few liter of oxgyen per min like 4 only Because of significant improvement and she was moved out of the ICU Her treatment was the risk related, antibiotics vancomycin and doxycycline were stopped and Cefepime. IV Lasix Switched to Oral Dose of 40 Mg Daily. While She Kept on High Dose of IV Solu-Medrol 60 Mg. 01/07/2023 Patient today having some more breathing difficulty compared to yesterday however she still looks greatly although she still have some wheezing. She is saturating 90s on 4 L oxygen via nasal cannula, no much of accessory muscles and she can talk more freely. Her chest x-ray today showing worse than admission when I reviewed it but most likely this is because of the technique. She remains on IV Solu-Medrol, 60 mg. Cefepime, oral Lasix 40 mg daily. Patient did not need BiPAP last night. Patient wants to keep the [place] cath in Place because it's harder for her to get up 01/08/2023 Patient seen and evaluated in follow-up today with pulmonary following closely. Patient is continued on 4 L via nasal cannula as well as BiPAP. Patient continues on oral steroids along with inhalers and cefepime. Patient was started on cefepime empirically for concerns of pneumonia. Patient continues to be extremely dyspneic with minimal exertion and would recommend weaning FiO2 as tolerated. Patient normally wears a CPAP and has one for the outpatient setting although would recommend continuing with BiPAP especially at night from 8 PM to 6 AM. Continue BiPAP as needed as well. Patient extremely weak and has been progressively getting more weak with each admission. Patient has been hospitalized very frequently most recently and clinically very slow to improve. Case management following as there will be plans to return to rehab or possible inpatient rehab. Will await PT/OT therapy evaluation. Patient is currently afebrile denies chest pain or palpitations. Patient reports she is tolerating diet with no reports of nausea or vomiting noted. 01/09/2023 Patient is seen and evaluated in follow up today and per nursing staff was found this morning with her oxygen and BIpap mask off and O2 saturations in the 60's. Patient was placed back on bipap and numbers improved slightly although continued to be restless, combative, and not following commands. Ordered ativan to calm and was not effective. Patient extremely dyspneic and tachypneic and working with accessory muscle use. Luckily, pulmonary was rounding on the unit and ordered transfer to ICU for possible intubation and close monitoring. Patient is afebrile and continued on cefepime empirically and sputum cultures ordered. continued on breathing treatments as well as oral prednisone. 01/10/2023 Patient is seen in follow up today and continues to be in the ICU in critical condition. Patient continues on mechanical ventilation with an FI02 of 50% and peep is 5. Patient was off pressor support and off propofol and not tolerating with no plans for weaning off the vent at this time. Peg and tracheostomy is being considered in the next few days possibly. Patient overall prognosis is extremely poor and guarded at this time. PICC line is being ordered and pending. Patient is also continued on empiric antibiotics and awaiting cultures. Patient also placed back on IV steroids per pulmonary. Patient is afebrile. Review of systems: unable to obtain as patient is on mechanical vent and sedated All medications have been reviewed Active Medications Acetaminophen (Acetaminophen Tab 500 Mg Tab) 1,000 mg PO Q6HR PRN PRN Reason: Fever and/ or Pain Last Admin: 01/05/23 20:15 Dose: 1,000 mg Albuterol Sulfate (Albuterol Nebulized 2.5 Mg/3 Ml) 2.5 mg INHALATION RT-QID [facility] Last Admin: 01/10/23 20:20 Dose: 2.5 mg Albuterol Sulfate (Albuterol Nebulized 2.5 Mg/3 Ml) 2.5 mg INHALATION RT-QID PRN PRN Reason: Shortness Of Breath Or Wheezing Artificial Tears (Artificial Tears-Hypromellose Drops 15 Ml Btl) 2 drops BOTH EYES QID PRN PRN Reason: Dry Eye(s) Budesonide (Budesonide 1 Mg/2 Ml Nebu) 1 mg INHALATION RT-BID [facility] Last Admin: 01/10/23 20:20 Dose: 1 mg Chlorhexidine Gluconate (Chlorhexidine Gluconate 15 Ml Cup) 15 ml MUCOUS MEM BID [facility] Last Admin: 01/10/23 20:36 Dose: 15 ml Dextrose/Water (Dextrose 50% Syringe 50 Ml) 25 ml IVP PER PROTOCOL PRN; Protocol PRN Reason: Hypoglycemia Dextrose/Water (Dextrose 50% Syringe 50 Ml) 50 ml IVP PER PROTOCOL PRN; Protocol PRN Reason: Hypoglycemia Duloxetine HCl (Duloxetine Hcl 30 Mg Capsule.Dr) 30 mg PO DAILY@0600 [facility] Last Admin: 01/10/23 05:39 Dose: Not Given Formoterol Fumarate (Formoterol Fumarate 20 Mcg/2 Ml Nebu) 20 mcg INHALATION RT-BID [facility] Last Admin: 01/10/23 20:20 Dose: 20 mcg Furosemide (Furosemide 10 Mg/Ml 2 Ml Vial) 20 mg IV DAILY [facility] Last Admin: 01/10/23 09:27 Dose: 20 mg Heparin Sodium (Porcine) (Heparin Sodium,Porcine/Pf 5,000 Unit/0.5 Ml Syringe) 5,000 unit SQ Q12HR [facility] Last Admin: 01/10/23 20:34 Dose: 5,000 unit Sodium Chloride (Saline 0.9%) 1,000 mls @ 20 mls/hr IV .Q24H [facility] Last Admin: 01/11/23 00:35 Dose: Not Given Cefepime HCl 2 gm/ Sodium (Chloride) 100 mls @ 25 mls/hr IVPB Q12HR [facility]; Protocol Last Admin: 01/10/23 20:35 Dose: 25 mls/hr Propofol 1,000 mg/ IV Solution 100 mls @ 10.452 mls/hr IV .Q9H35M [facility]; Protocol Last Admin: 01/11/23 02:15 Dose: 35 mcg/kg/min, 18.291 mls/hr Norepinephrine Bitartrate 4 mg (/ Sodium Chloride) 254 mls @ 9.956 mls/hr IV .Q24H [facility]; Protocol Last Titration: 01/10/23 03:53 Dose: 0 mcg/kg/min, 0 mls/hr Insulin Aspart (Insulin Aspart (Novolog) 100 Unit/Ml Vial) 0 unit SQ Q6H [facility]; Protocol Last Admin: 01/11/23 00:43 Dose: 2 unit Ipratropium [place] (Ipratropium 0.5 Mg/2.5 Ml Nebu) 0.5 mg INHALATION RT-QID [facility] Last Admin: 01/10/23 20:20 Dose: 0.5 mg Methylprednisolone Sodium Succinate (Methylprednisolone Sod Succi 125 Mg/2 Ml Vial) 60 mg IV Q6HR [facility] Last Admin: 01/11/23 00:43 Dose: 60 mg Miscellaneous Information (Potassium Replacement Protocol 1 Each Misc) 1 each M ISCELLANE DAILY PRN; Protocol PRN Reason: Per Protocol Miscellaneous Information (Magnesium Replacement Protocol 1 Each Misc) 1 each MISCELLANE DAILY PRN; Protocol PRN Reason: Per Protocol Montelukast Sodium (Montelukast 10 Mg Tab) [address] [facility] Last Admin: 01/10/23 20:36 Dose: 10 mg Naloxone HCl (Naloxone 0.4 Mg/Ml 1 Ml Vial) 0.2 mg IV Q2M PRN PRN Reason: Opioid Reversal Duoneb ([id number] (/Ipratropium0.5mg)) 1 each INHALATION RT-QID [facility] Last Admin: 01/09/23 16:12 Dose: 1 each Pantoprazole Sodium (Pantoprazole 40 Mg/10 Ml Vial) 40 mg IVP BID [facility] Last Admin: 01/10/23 20:34 Dose: 40 mg Ropinirole HCl (Ropinirole Hcl 4 Mg Tablet) [address] [facility] Last Admin: 01/10/23 20:36 Dose: 4 mg Theophylline (Theophylline 24 Hour 400 Mg Cap.Er.24h) 400 mg PO DAILY@0600 [facility] Last Admin: 01/10/23 05:40 Dose: Not Given Tobramycin/Dexamethasone (Tobra-Dexamet 0.3-0.1% Ophth Drops 2.5 Ml Btl) 2 drops RIGHT EYE Q4HR [facility] Last Admin: 01/11/23 00:44 Dose: 2 drops Verapamil HCl (Verapamil Sr 120 Mg Tablet.Er) 120 mg PO DAILY@0600 [facility] Last Admin: 01/10/23 05:40 Dose: Not Given Physical exam : GENERAL: The patient is on mechanical vent with an FI02 of 50% and peep is 5. Sedated. Well developed, well nourished. obese HEENT: Pupils are round and equally reacting to light. EOMI. No scleral icterus. No conjunctival pallor. Normocephalic, atraumatic. No pharyngeal erythema. No thyromegaly. CARDIOVASCULAR: S1 and S2 muffled PULMONARY: diminished breath sounds bilaterally with course rhonchi and faint crackles noted at the bases ABDOMEN: Soft, nontender, obese. nondistended, normoactive bowel sounds. No palpable organomegaly. MUSCULOSKELETAL: No joint swelling or deformity. EXTREMITIES: No cyanosis, clubbing, or pedal edema. NEUROLOGICAL: unable to assess, on sedation of propofol SKIN: No rashes. no petechiae. Assessment: Acute COPD exacerbation Acute on chronic hypoxic respiratory failure patient is normally at home on 3 L nasal cannula, now requriing mechanical ventilation on 01/09/2023 Acute respiratory acidosis Altered mental status possibly secondary to C02 narcosis sepsis, with septic shock and hypotension, requiring pressor support Acute on chronic hypercapnic respiratory failure Chronic leukocytosis History of COVID-19 pneumonia Benign essential hypertension History of rheumatoid osteoarthritis Chronic back pain Former smoker Full code Plan: Recommend continue with current medications and Patient was placed on mechanica l vent with an FI02 of 50% and peep of 5 yesterday and being closely monitored in the ICU. Continued on IV steroids now and prednisone discontinued for now Patient continued on IV cefepime per pulmonary for empiric treatment for concerns for pneumonia and sputum culture sent and remains pending recommend monitoring blood sugars per protocol Discussing possible peg and trach in the next few days and will need to discuss further with family Due to multiple complex medical issues, overall prognosis is extremely poor and guarded The impression and plan of care has been dictated by Teresa Portillo, Nurse Practitioner as directed. Dr. Joey MD I have performed a history and examination and MDM of this patient, discussed the same with the dictator, and agree with the dictator's assessment and plan as written ,documented as a scribe. Based on total visit time, I have performed more than 50% of the visit. Objective - Vital Signs Vital signs: Vital Signs Temp 99.0 F 01/11/23 00:00 Pulse 90 01/11/23 01:00 Resp 16 01/11/23 01:00 BP 116/59 01/10/23 05:30 Pulse Ox 94 L 01/11/23 01:00 FiO2 50 01/11/23 00:11 Intake & Output 01/10/23 01/10/23 01/11/23 06:59 18:59 06:59 Intake Total 891.935 363.988 675.383 Output Total 805 955 255 Balance 86.935 -591.012 420.383 Weight 90 kg Intake: IV 492 146 281 0.9 carrier 420 20 140 ARTERIAL LINE 72 6 21 Cefepime 2 gm In Sodium 100 100 Chloride 0.9% 100 ml @ 25 mls/hr IVPB Q12HR [facility] Rx #:[id number] Sodium Chloride 0.9% 1, 20 000 ml @ 20 mls/hr IV . Q24H [facility] Rx#:[id number] Sodium Chloride 0.9% 2, 20 000 ml @ 999 mls/hr IV . Q2H1M [facility] Rx#:[id number] Intake, IV Titration 294.935 217.988 174.383 Amount Norepinephrine 4 mg In 111.580 Sodium Chloride 0.9% 250 ml @ 0.03 MCG/KG/MIN 9. 956 mls/hr IV .Q24H [facility] Rx#:[id number] Sodium Chloride 0.9% 1, 20 000 ml @ 20 mls/hr IV . Q24H [facility] Rx#:[id number] propofoL 1,000 mg In 183.355 197.988 174.383 Empty Bag 1 bag @ 20 MCG/ KG/MIN 10.452 mls/hr IV . Q9H35M [facility] Rx#:[id number] Tube Feeding 130 Other 105 90 Output: Urine 805 955 255 Other: Voiding Method Indwelling Catheter Indwelling Catheter Indwelling Catheter ABP, PAP, CO, CI - Last Documented Arterial Blood Pressure 143/54 - Labs CBC & Chem 7: 01/10/23 03:52 01/10/23 16:30 Labs: Abnormal Lab Results - Last 24 Hours (Table) 01/10/23 01/10/23 01/10/23 Range/Units 03:50 03:52 06:45 RBC 3.69 L (3.80-5.40) m/uL Plt Count 135 L (150-450) k/uL Lymphocytes # 0.6 L (1.0-4.8) k/uL ABG pCO2 52 H (35-45) mmHg ABG pO2 79 L (83-108) mmHg ABG HCO3 32 H (21-25) mmol/L ABG Total CO2 34 H (19-24) mmol/L Carbon Dioxide 36 H (22-30) mmol/L BUN 29 H (7-17) mg/dL Glucose 115 H (74-99) mg/dL POC Glucose (mg/dL) (70-110) mg/dL Calcium 8.0 L (8.4-10.2) mg/dL 01/10/23 01/10/23 01/11/23 Range/Units 11:52 18:20 00:22 RBC (3.80-5.40) m/uL Plt Count (150-450) k/uL Lymphocytes # (1.0-4.8) k/uL ABG pCO2 (35-45) mmHg ABG pO2 (83-108) mmHg ABG HCO3 (21-25) mmol/L ABG Total CO2 (19-24) mmol/L Carbon Dioxide (22-30) mmol/L BUN (7-17) mg/dL Glucose (74-99) mg/dL POC Glucose (mg/dL) 114 H 186 H 247 H (70-110) mg/dL Calcium (8.4-10.2) mg/dL Microbiology - Last 24 Hours (Table) 01/09/23 12:30 Blood Culture - Preliminary Blood No Growth after 24 hours 01/09/23 12:43 Blood Culture - Preliminary Blood No Growth after 24 hours 01/09/23 09:55 Gram Stain - Preliminary Sputum Sputum Culture - Preliminary
[2023-01-11] MEDS: DULoxetine HCL 30 MG CAPSULE.DR PO SCH (06:13)
[2023-01-11] MEDS: VERAPAMIL SR 120 MG TABLET.ER PO SCH (06:14)
[2023-01-11] MEDS: THEOPHYLLINE 24 HOUR 400 MG CAP.ER.24H PO SCH (06:14)
[2023-01-11 06:20] LABS: Glucose,Whole Blood 233 mg/dL (70-110)
[2023-01-11 06:23] LABS: Glucose,Whole Blood 253 mg/dL (70-110)
[2023-01-11 06:52] LABS: ABG Base Excess 10.7 mmol/L; ABG HCO3 35 mmol/L (21-25); ABG Oxygen Saturation 98.1 % (94-97); ABG PCO2 56 mmHg (35-45); ABG PH 7.41 (7.35-7.45); ABG PO2 95 mmHg (83-108); ABG TCO2 37 mmol/L (19-24); Allen Test Performed? Yes
--- NOTE | 2023-01-11 06:55 | XR ---
EXAMINATION TYPE: XR chest 1V portable DATE OF EXAM: 01/11/2023 CLINICAL HISTORY: Difficulty breathing progress study. TECHNIQUE: Single AP portable semiupright view of the chest is obtained. COMPARISON: Chest x-ray from one day earlier and older studies. FINDINGS: Stable left sided PICC line. Stable endotracheal and orogastric tubes. Patchy right greater than left bibasilar opacities and small right pleural effusion is redemonstrated . Upper lungs remain clear. Cardiac silhouette size stable and mildly enlarged. Osseous structures ar e intact. IMPRESSION: Persistent small to tiny right greater than left pleural effusions and associated patchy bibasilar atelectasis and/or infiltrates. No significant change from one day earlier.
[2023-01-11] MEDS: FORMOTEROL FUMARATE 20 MCG/2 ML NEBU INHALATION SCH ×2 (07:37→20:43)
[2023-01-11] MEDS: BUDESONIDE 1 MG/2 ML NEBU INHALATION SCH ×2 (07:37→20:44)
[2023-01-11] MEDS: ALBUTEROL NEBULIZED 2.5 MG/3 ML INHALATION SCH ×4 (07:37→20:42)
[2023-01-11] MEDS: IPRATROPIUM 0.5 MG/2.5 ML NEBU INHALATION SCH (07:37)
[2023-01-11] MEDS: FUROSEMIDE 10 MG/ML 2 ML VIAL IV SCH (08:58)
[2023-01-11] MEDS: CHLORHEXIDINE GLUCONATE 15 ML CUP MUCOUS MEM SCH ×2 (08:58→21:18)
[2023-01-11] MEDS: PANTOPRAZOLE 40 MG/10 ML VIAL IVP SCH ×2 (08:58→21:19)
[2023-01-11] MEDS: HEPARIN SODIUM,PORCINE/PF 5,000 UNIT/0.5 ML SYRINGE SQ SCH ×2 (08:59→21:18)
[2023-01-11] MEDS: carvediloL 12.5 MG TAB PO SCH ×2 (08:59→17:28)
[2023-01-11] MEDS: VERAPAMIL 40 MG TAB PO SCH ×3 (09:16→21:20)
[2023-01-11 11:32] LABS: Glucose,Whole Blood 244 mg/dL (70-110)
--- NOTE | 2023-01-11 11:45 | P.PN ---
Subjective Progress Note Date: 01/11/23 Principal diagnosis: Acute hypoxic and hypercapnic respiratory failure secondary to acute exacerbation of COPD 67-year-old female patient with advanced end-stage COPD with frequent hospitalizations was been listed and subsequently deactivated from lung transplant list at [facility], coming in for another exacerbation. The patient was discharged from the hospital on 01/25/2023 after having a prolonged hospitalization for COPD exacerbation and acute on top of chronic hypoxic and hypercapnic respiratory failure. Note that the patient has advanced and chronic COPD, chronic action dependence maintain on oxygen at 3 L, chronic hypercapnic respiratory failure maintained on a VPAP auto with an EPAP minimum of 5 and a maximum pressure of 15 with a pressure support of 4. She has history of other comorbid conditions including hypertension, rheumatoid arthritis, chronic pain, including chronic back pain and previous history of infections with Covid 19 from which she recovered. She has also history was 2., Osteoarthritis, restless leg, gout and impaired hearing During this current admission, the [facility] for worsening shortness of breath.. The patient was quite somnolent and lethargic and tachypneic at the time of emergency presentation. This [facility] at [facility]. She was found to be lethargic while being on her BiPAP machine. The patient was arousable to sternal rub, yet she will go to sleep if left on terminated. Upon arrival she was immediately placed on a BiPAP. She was placed on a pressure of 12/6 cm of water. The generated tidal volume was low at around 150, and the patient had an elevated respiratory rate. Based on that, I modified the BiPAP to pressures of 15/6 cm of water. The patient is on FiO2 of 40%. Her tidal volume on a mechanical ventilator is around 250 mL. A chest x-ray was done that showed mild cardiomegaly without any Acute cardiac pulmonary process. The patient also had a blood gas that showed a pH of 7.34 with a pCO2 of 84 and pO2 of 80 and this was an FiO2 of 40% while being in the BiPAP. The echoes at 12.2 with a hemoglobin of 14 and a platelet count of 127. Serum bicarb is 49, sodium is at 139, potassium level is at 3.7. Troponin is at 0.04. LFTs are normal. On today's evaluation of 01/05/2023, the patient has done great progress. I was very much concerned and the patient is going to get intubated yesterday. I try not to intubated the patient has advanced COPD and we managed with noninvasive positive pressure ventilatory with BiPAP at a pressure of 15/6 cm of water. After she arrived to the ICU, she gradually improved. She became much more a lert and awake. She was briefly taken off the BiPAP, however overnight, she was kept on a BiPAP for further support. This morning, she is off the BiPAP and she is currently on oxygen at 3 L. There is adequate air entry bilaterally although the patient remains bronchospastic and wheezy. Chest x-ray does not show any acute abnormalities on today's evaluation. The patient otherwise is on fluids at KVO. She is on albuterol neb blotchiness 4 times a day, Pulmicort Respules 0.5 mg twice a day, IV Solu-Medrol 60 mg every 6 hours, she is also on a combination of cefepime, vancomycin that was started yesterday on an empiric basis for a possibility of underlying pneumonia. I think it's safe to discontinue the vancomycin at least for now. The primary care team also added doxycycline. The MUGA scan is at 6.5 with a hemoglobin 12.3 and a platelet count of 131. Serum bicarbs of 47. BUN is at 30 with a creatinine of 0.7 and a sodium level is at 138. She is afebrile. She is awake and alert. Should be able to eat and the patient was offered breakfast and I was told that she ate 100% of her breakfast. 01/06/2023, the patient is fully alert and awake and oriented. She is off the BiPAP and she is currently on oxygen at 3 L nasal cannula. No new complaints for now.Acute COPD exacerbation is being treated with a combination of albuterol nebulized treatments 4 times a day, Pulmicort Respules 0.5 mg twice a day, Perforomist embolus treatments twice a day, theophylline 400 mg by mouth daily, IV Solu-Medrol which is still running at a dose of 60 mg IV every 6 hours. Her antibiotic coverage is with IV cefepime. The bloodwork from today shows a WBC count of 15 with a hemoglobin of 11.7 and a platelet count of 143. Bicarb is at 40. Sodiums of 140 with a potassium level of 3.6. Blood glucose is 216 and the calcium levels at 3.2. Clinically, the patient is doing well. No complaints patient should be able to transfer outside intensive care unit. On 01/07/2023, the patient is on a medical floor. The patient got transferred out of the intensive care unit yesterday. Awake and alert. No signs of any CO2 narcosis. Remains on the same respiratory medications and combination with that she is receiving IV Solu-Medrol. She is becoming progressively more cushingoid. She has a VPAP from home and she has a BiPAP at the bedside. No altered mentation. Tolerating her diet. No nausea or vomiting cannot now. No chest pain.Very limited performance of functional status due to advanced COPD. Blood sugars at 227. Sodium is at 142 with a BUN of 38 and a creatinine of 0.6. The patient is seen today 01/08/2023 in follow-up on the regular medical floor. She is currently sitting up in bed. Awake and alert in no acute distress. She is still dyspneic with conversation. Dyspneic with minimal activity. She is currently maintaining O2 saturations in the 90s on 4 L/m per nasal cannula. She is on BiPAP 15/6 at 40% at night and during the day while mapping. Sodium 142. Potassium 3.8. Bicarb 50. BUN 38. Creatinine 0.68. Glucose 153. She is currently on albuterol, Pulmicort and Perforomist inhalations, Spiriva, Singulair, theophylline. Antibiotics in the form of cefepime. Heparin for DVT prophylaxis. Remains on oral diuretics. Patient was reevaluated today on 01/09/2023, I was rounding on the fifth floor early this morning, and I was notified about this patient having severe respiratory distress. Walks into the room, patient is on BiPAP, however she seems to be extremely restless agitated, and keeps pulling the BiPAP off. Patient is not following any instructions, she is thrashing all over the bed, and extremely agitated, tachypneic, tachycardic. Patient was given 0.5 mg of Ativan to calm her down, did not seem to help much, hence I have arranged for the patient to be transferred to the ICU upon arrival to the ICU, patient remained restless and agitated, and kept pulling her BiPAP mask off, then I went ahead and intubated the patient and she was placed on mechanical ventilation. Patient was placed on assist control rate of 201 of 450 FiO2 50% and PEEP of 5. ABG showed a pO2 of 279 pCO2 of 55 pH of 7.42, hence I cut down her rate from 20-16. Kept her on the same tidal volume, and I'm recommending titrating her FiO2 down from 50% maintaining O2 saturation above 92%. After intubating the patient patient was noted to remain hypotensive hence I recommended 2 L of fluid boluses given, did not improve much hence the patient was started on norepinephrine to titrate for a mean arterial pressure of 65 or higher. In addition to intubating the patient, patient had a central line placed in her right IJ, and she also had an arterial line placed. Chest x-ray 06 intubation and post lines placement showed appropriate position of the endotracheal tube, there was no evidence of pneumothorax, Prozac appropriate position of the right IJ central line, there was small areas of atelectasis and tiny pleural effusions. Remaining labs are pending, blood cultures are pending. Patient is empirically on antibiotics, she is on GI and DVT prophylaxis, and I was able to place a nasogastric tube, and recommended starting the patient on enteral feeding. Seen today on 01/10/2023, patient is in the ICU, intubated and mechanically ventilated. She is on assist control rate of 16 tidal volume 450 FiO2 50% and PEEP of 5 ABG showed a pO2 79 pCO2 52 pH of 7.40. Patient has been off norepinephrine since 4 AM. She is off propofol this morning, arousable, lethargic, but on physical examination she has diffuse rhonchi and wheezes. Hence no plans to pursue any further weaning trials and she will go back on propofol. Patient is hypertensive, but she is now hypertensive mostly because she is off propofol. Apparently the nurses lost her right IJ central line early this morning, I'm recommending a placement of a PICC line to be placed by interventional radiology this morning. Patient is back on Solu-Medrol, she is on cefepime empirically, cultures of blood and sputum are pending. Chest x-ray showed small right-sided pleural effusion and by basilar patchy atelectasis. Doubt infiltrates. WBC count is 8.0 hemoglobin is 11.6. Assessment normal, renal profile is normal, nutrition-guaman, the patient is receiving enteral feeding. Reevaluated today on , patient remains intubated and mechanically ventilated. She is on assist control rate of 16 tidal volume 450 FiO2 50% and PEEP of 5 ABG showed a pO2 of 95 pCO2 56 pH of 7.41, I cut down her FiO2 to 45%. Patient remains on propofol at 35 mcg/kg/m she is also on vitamin HP/enteral feeding at 30 mL per hour, and she is on IV fluid to KVO. Patient remains sedated, he is hemodynamically stable, not requiring any pressors. Remains on GI and DVT prophylaxis, antibiotics have been discontinued since all the cultures have been negative including blood cultures and sputum cultures so far. Patient was on cefepime which I will discontinue. Chest x-ray showed tiny r ight-sided pleural effusion and left pleural effusion with bibasilar atelectasis, no clear-cut evidence of pneumonia CBC is normal and basic metabolic is unremarkable Objective - Vital Signs Vital signs: Vital Signs Temp 99.2 F 01/11/23 08:00 Pulse 67 01/11/23 10:42 Resp 15 01/11/23 10:42 BP 147/86 01/11/23 10:00 Pulse Ox 92 L 01/11/23 10:00 FiO2 45 01/11/23 10:40 Intake & Output 01/10/23 01/11/23 01/11/23 18:59 06:59 18:59 Intake Total 363.988 973.596 307.150 Output Total 955 395 365 Balance -591.012 578.596 -57.850 Intake: IV 146 373 92 0.9 carrier 20 220 60 ARTERIAL LINE 6 33 12 Cefepime 2 gm In Sodium 100 100 Chloride 0.9% 100 ml @ 25 mls/hr IVPB Q12HR [facility] Rx #:[id number] Sodium Chloride 0.9% 1, 20 20 000 ml @ 20 mls/hr IV . Q24H [facility] Rx#:[id number] Sodium Chloride 0.9% 2, 20 000 ml @ 999 mls/hr IV . Q2H1M ONE Rx#:[id number] Intake, IV Titration 217.988 250.596 65.150 Amount Sodium Chloride 0.9% 1, 20 000 ml @ 20 mls/hr IV . Q24H [facility] Rx#:[id number] propofoL 1,000 mg In 197.988 250.596 65.150 Empty Bag 1 bag @ 20 MCG/ KG/MIN 10.452 mls/hr IV . Q9H35M [facility] Rx#:[id number] Tube Feeding 230 120 Other 120 30 Output: Urine 955 395 365 Other: Voiding Method Indwelling Catheter Indwelling Catheter ABP, PAP, CO, CI - Last Documented Arterial Blood Pressure 157/59 - Exam Physical Exam: Revealed 67-year-old female, intubated, sedated, on propofol at 35 g per kilogram per minute. Head: Atraumatic, normocephalic, patient is cushingoid. HEENT:[Neck is supple.] [No neck masses.] [No thyromegaly.] [No JVD.] Chest: Wheezing and rhonchi noted bilaterally. Cardiac Exam:, Normal S1 and S2, no S3 gallop, no murmur.] Abdomen: [Soft, nontender, no megaly, no rebound, no guarding, normal bowel sounds.] Extremities: [No clubbing, no edema, no cyanosis.] Neurological Exam: Could not assess, patient is sedated on propofol Psychiatric: Could not assess. Skin: Multiple areas of bruising related to chronic use of steroids - Labs CBC & Chem 7: 01/10/23 03:52 01/10/23 16:30 Labs: Abnormal Lab Results - Last 24 Hours (Table) 01/10/23 01/10/23 01/11/23 Range/Units 11:52 18:20 00:22 ABG pCO2 (35-45) mmHg ABG HCO3 (21-25) mmol/L ABG Total CO2 (19-24) mmol/L ABG O2 Saturation (94-97) % POC Glucose (mg/dL) 114 H 186 H 247 H (70-110) mg/dL 01/11/23 01/11/23 01/11/23 Range/Units 06:18 06:22 06:46 ABG pCO2 56 H (35-45) mmHg ABG HCO3 35 H (21-25) mmol/L ABG Total CO2 37 H (19-24) mmol/L ABG O2 Saturation 98.1 H (94-97) % POC Glucose (mg/dL) 233 H 253 H (70-110) mg/dL 01/11/23 Range/Units 11:30 ABG pCO2 (35-45) mmHg ABG HCO3 (21-25) mmol/L ABG Total CO2 (19-24) mmol/L ABG O2 Saturation (94-97) % POC Glucose (mg/dL) 244 H (70-110) mg/dL Microbiology - Last 24 Hours (Table) 01/09/23 09:55 Gram Stain - Final Sputum Sputum Culture - Final 01/09/23 12:30 Blood Culture - Preliminary Blood No Growth after 24 hours 01/09/23 12:43 Blood Culture - Preliminary Blood No Growth after 24 hours Assessment and Plan Assessment: Impression: Acute on chronic hypoxic and hypercapnic respiratory failure requiring intubation and mechanical ventilation on 01/09/2022. Sepsis, doubt septic shock, I believe the hypertension is hypovolemic in nature responded well to volume replacement but nonetheless required a short course of norepinephrine were in suspected septic shock, but clinically I believe this is mostly hypovolemia. Severe end-stage COPD. Acute exacerbation of COPD. 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 Recommendation: Continue ventilatory support considering her pulmonary status not ready for weaning Daily interruption of sedation and assessment of mental status Discontinue antibiotics for now. Continue bronchodilators Cultures have been negative. Continue GI and DVT prophylaxis Continue nutritional support/enteral feeding Continue Solu-Medrol and bronchodilators Clearly not ready for any weaning but again will have daily interruption of sedation Daily x-rays of the chest and daily labs to be ordered and monitored closely Patient is critically ill Critical care time is over 30 minutes Time with Patient: Greater than 30
[2023-01-11] MEDS ORDERED: IPRATROPIUM-ALBUTEROL 3 ML NEB INHALATION SCH (12:00)
[2023-01-11] MEDS ORDERED: IPRATROPIUM 0.5 MG/2.5 ML NEBU INHALATION SCH (12:00)
[2023-01-11] MEDS: NOREPINEPHRINE 4 MG in SODIUM CHLORIDE 0.9% 250 ML IV SCH (14:46)
[2023-01-11 18:20] LABS: Glucose,Whole Blood 288 mg/dL (70-110)
[2023-01-11] MEDS: INSULIN DETEMIR (LEVEMIR) 100 UNIT/ML SYR SQ SCH (21:18)
[2023-01-11] MEDS: MONTELUKAST 10 MG TAB PO SCH (21:18)
[2023-01-11] MEDS: rOPINIRole HCL 4 MG TABLET PO SCH (21:19)
[2023-01-12] MEDS: ALBUTEROL NEBULIZED 2.5 MG/3 ML INHALATION SCH ×7 (00:25→23:21)
[2023-01-12 00:35] LABS: Glucose,Whole Blood 272 mg/dL (70-110)
[2023-01-12] MEDS: methylPREDNISolone SOD SUCCI 125 MG/2 ML VIAL IV SCH ×4 (00:36→17:18)
[2023-01-12] MEDS: INSULIN ASPART (NovoLOG) 100 UNIT/ML VIAL SQ SCH ×4 (00:36→18:40)
[2023-01-12] MEDS: TOBRA-DEXAMET 0.3-0.1% OPHTH DROPS 2.5 ML BTL RIGHT EYE SCH ×6 (00:38→20:24)
[2023-01-12 01:52] LABS: Basophils % (A) 0 %; Eosinophils % (A) 0 %; HCT 34.2 % (34.0-46.0); HGB 10.9 gm/dL (11.4-16.0); Lymphocytes # (A) 0.4 k/uL (1.0-4.8); Lymphocytes % (A) 6 %; MCH 31.6 pg (25.0-35.0); MCHC 31.8 g/dL (31.0-37.0); MCV 99.4 fL (80.0-100.0); Mean Platelet Volume 9.6; Monocytes # (A) 0.2 k/uL (0-1.0); Monocytes % (A) 3 %; Neutrophils # (A) 6.1 k/uL (1.3-7.7); Neutrophils % (A) 90 %; Platelet Count 148 k/uL (150-450); RBC 3.44 m/uL (3.80-5.40); WBC 6.7 k/uL (3.8-10.6)
[2023-01-12 01:59] LABS: African American GFR (CKD) >90 (>60 ml/min/1.73 sqM); Anion Gap 2 mmol/L; Blood Urea Nitrogen 37 mg/dL (7-17); Calcium 7.9 mg/dL (8.4-10.2); Carbon Dioxide 37 mmol/L (22-30); Chloride 99 mmol/L (98-107); Glucose 267 mg/dL (74-99); Magnesium 2.4 mg/dL (1.6-2.3); Non-African American GFR(CKD) 79 (>60 ml/min/1.73 sqM); Potassium 3.8 mmol/L (3.5-5.1); Sodium 138 mmol/L (137-145)
[2023-01-12] MEDS ORDERED: POTASSIUM BICARBONATE/CIT AC 20 MEQ TABLET.EFF NG-TUBE SCH (04:00)
--- NOTE | 2023-01-12 04:19 | P.PN ---
Subjective Progress Note Date: 01/11/23 This is a pleasant 67 years old female with past medical history of advanced COPD advanced COPD on home oxygen dependent on 3-4 L at all times, obstructive sleep apnea CPAP dependent nightly, diastolic CHF hypertension, iron deficiency anemia, rheumatoid arthritis, and chronic back pain who presented to the ER because of worsening shortness of breath for a few days duration Patient currently is lying in bed in the emergency room 6, with BiPAP machine on with parameters of 15/6, FiO2 of 40%. Patient is tachypneic breathing with direct about 34-37. Patient looks tired and she could not provide much information, she cannot talk but she is awake and oriented. She follows commands. She has minimal chest movement with expiratory wheezing. She denies any pain, no chest pain she denies any GI or urinary symptoms. She moves all extremities symmetrically. vitals reviewed and patient is afebrile. Mild Leukocytosis of 12.2, Mild Thrombocytopenia 127. Hemoglobin Normal. INR 0.9. VBG Showing High PCO2 of 84, Low pH of 7.3. BNP showing high carbon dioxide at 49, creatinine normal. Liver enzymes not elevated. Troponin negative. ProBNP is 301. Glucose 128. Chest x-ray reviewed by myself showing enlarged heart with COPD changes. Minimal chest congestion. Patient started on dexamethasone, albuterol. EKG showing normal sinus rhythm at [address]-T changes. 01/05/2023 Patient remains in the ICU, she required BiPAP all the ninth yesterday except for one hour she got some rest. Today patient showed significant improvement, she is more alert awake, pleasant. Her mentation is back to normal. Her breathing is also improving with decrease respiratory rate into 18-20, per to more than 30 yesterday. Repeat chest x-ray looks similar findings to yesterday with no obvious infiltrate or consolidation. The heart is mildly enlarged, just x-ray reviewed by myself. Other vitals and labs looks stable. pro-calcitonin is slightly elevated at 0.20 She is currently receiving IV Solu-Medrol 60 mg as well as broad-spectrum antibiotics with vancomycin and cefepime Until doxycycline. Also she is on IV Lasix daily. 01/06/2023 pt today is significantly improved , she can talk easily off the bipap machine in the moring although she was using all night, she requires few liter of oxgyen per min like 4 only Because of significant improvement and she was moved out of the ICU Her treatment was the risk related, antibiotics vancomycin and doxycycline were stopped and Cefepime. IV Lasix Switched to Oral Dose of 40 Mg Daily. While She Kept on High Dose of IV Solu-Medrol 60 Mg. 01/07/2023 Patient today having some more breathing difficulty compared to yesterday however she still looks greatly although she still have some wheezing. She is saturating 90s on 4 L oxygen via nasal cannula, no much of accessory muscles and she can talk more freely. Her chest x-ray today showing worse than admission when I reviewed it but most likely this is because of the technique. She remains on IV Solu-Medrol, 60 mg. Cefepime, oral Lasix 40 mg daily. Patient did not need BiPAP last night. Patient wants to keep the [place] cath in Place because it's harder for her to get up 01/08/2023 Patient seen and evaluated in follow-up today with pulmonary following closely. Patient is continued on 4 L via nasal cannula as well as BiPAP. Patient continues on oral steroids along with inhalers and cefepime. Patient was started on cefepime empirically for concerns of pneumonia. Patient continues to be extremely dyspneic with minimal exertion and would recommend weaning FiO2 as tolerated. Patient normally wears a CPAP and has one for the outpatient setting although would recommend continuing with BiPAP especially at night from 8 PM to 6 AM. Continue BiPAP as needed as well. Patient extremely weak and has been progressively getting more weak with each admission. Patient has been hospitalized very frequently most recently and clinically very slow to improve. Case management following as there will be plans to return to rehab or possible inpatient rehab. Will await PT/OT therapy evaluation. Patient is currently afebrile denies chest pain or palpitations. Patient reports she is tolerating diet with no reports of nausea or vomiting noted. 01/09/2023 Patient is seen and evaluated in follow up today and per nursing staff was found this morning with her oxygen and BIpap mask off and O2 saturations in the 60's. Patient was placed back on bipap and numbers improved slightly although continued to be restless, combative, and not following commands. Ordered ativan to calm and was not effective. Patient extremely dyspneic and tachypneic and working with accessory muscle use. Luckily, pulmonary was rounding on the unit and ordered transfer to ICU for possible intubation and close monitoring. Patient is afebrile and continued on cefepime empirically and sputum cultures ordered. continued on breathing treatments as well as oral prednisone. 01/10/2023 Patient is seen in follow up today and continues to be in the ICU in critical condition. Patient continues on mechanical ventilation with an FI02 of 50% and peep is 5. Patient was off pressor support and off propofol and not tolerating with no plans for weaning off the vent at this time. Peg and tracheostomy is being considered in the next few days possibly. Patient overall prognosis is extremely poor and guarded at this time. PICC line is being ordered and pending. Patient is also continued on empiric antibiotics and awaiting cultures. Patient also placed back on IV steroids per pulmonary. Patient is afebrile. 01/11/2023 Patient is seen and evaluated in follow-up today continues to be in the MICU with pulmonary aerial sprayer following closely. Patient remains on mechanical ventilation working on weaning FiO2 as tolerated. FiO2 is currently at 45% with a PEEP of 5 and undergoing sedation holidays with no plans of weaning at this time. Patient was continued on Cefepime although cultures are negative and blood cultures remain negative will discontinue cefepime. Patient is continued on tube feeds and blood sugar slightly elevated will continue sliding scale and add low-dose long-acting twice daily and continue to monitor Accu-Cheks before meals and at bedtime. Recommend follow-up chest x-ray and labs in the a.m. Review of systems: unable to obtain as patient is on mechanical vent and sedated All medications have been reviewed Active Medications Acetaminophen (Acetaminophen Tab 500 Mg Tab) 1,000 mg PO Q6HR PRN PRN Reason: Fever and/ or Pain Last Admin: 01/05/23 20:15 Dose: 1,000 mg Albuterol Sulfate (Albuterol Nebulized 2.5 Mg/3 Ml) 2.5 mg INHALATION RT-QID PRN PRN Reason: Shortness Of Breath Or Wheezing Albuterol Sulfate (Albuterol Nebulized 2.5 Mg/3 Ml) 2.5 mg INHALATION RT-Q4H [facility] Artificial Tears (Artificial Tears-Hypromellose Drops 15 Ml Btl) 2 drops BOTH EYES QID PRN PRN Reason: Dry Eye(s) Budesonide (Budesonide 1 Mg/2 Ml Nebu) 1 mg INHALATION RT-BID [facility] Last Admin: 01/11/23 07:37 Dose: 1 mg Carvedilol (Carvedilol 12.5 Mg Tab) 12.5 mg PO BID-W/MEALS [facility] Last Admin: 01/11/23 08:59 Dose: 12.5 mg Chlorhexidine Gluconate (Chlorhexidine Gluconate 15 Ml Cup) 15 ml MUCOUS MEM BID [facility] Last Admin: 01/11/23 08:58 Dose: 15 ml Dextrose/Water (Dextrose 50% Syringe 50 Ml) 25 ml IVP PER PROTOCOL PRN; Protocol PRN Reason: Hypoglycemia Dextrose/Water (Dextrose 50% Syringe 50 Ml) 50 ml IVP PER PROTOCOL PRN; P rotocol PRN Reason: Hypoglycemia Duloxetine HCl (Duloxetine Hcl 30 Mg Capsule.Dr) 30 mg PO DAILY@0600 [facility] Last Admin: 01/11/23 06:13 Dose: Not Given Formoterol Fumarate (Formoterol Fumarate 20 Mcg/2 Ml Nebu) 20 mcg INHALATION RT-BID [facility] Last Admin: 01/11/23 07:37 Dose: 20 mcg Furosemide (Furosemide 10 Mg/Ml 2 Ml Vial) 20 mg IV DAILY [facility] Last Admin: 01/11/23 08:58 Dose: 20 mg Heparin Sodium (Porcine) (Heparin Sodium,Porcine/Pf 5,000 Unit/0.5 Ml Syringe) 5,000 unit SQ Q12HR [facility] Last Admin: 01/11/23 08:59 Dose: 5,000 unit Sodium Chloride (Saline 0.9%) 1,000 mls @ 20 mls/hr IV .Q24H [facility] Last Admin: 01/11/23 00:35 Dose: Not Given Propofol 1,000 mg/ IV Solution 100 mls @ 10.452 mls/hr IV .Q9H35M [facility]; Protocol Last Titration: 01/11/23 10:00 Dose: 10 mcg/kg/min, 5.226 mls/hr Norepinephrine Bitartrate 4 mg (/ Sodium Chloride) 254 mls @ 9.956 mls/hr IV .Q24H [facility]; Protocol Last Titration: 01/10/23 03:53 Dose: 0 mcg/kg/min, 0 mls/hr Insulin Aspart (Insulin Aspart (Novolog) 100 Unit/Ml Vial) 0 unit SQ Q6H [facility]; Protocol Last Admin: 01/11/23 06:26 Dose: 2 unit Methylprednisolone Sodium Succinate (Methylprednisolone Sod Succi 125 Mg/2 Ml Vial) 60 mg IV Q6HR [facility] Last Admin: 01/11/23 06:26 Dose: 60 mg Miscellaneous Information (Potassium Replacement Protocol 1 Each Misc) 1 each MISCELLANE DAILY PRN; Protocol PRN Reason: Per Protocol Miscellaneous Information (Magnesium Replacement Protocol 1 Each Misc) 1 each MISCELLANE DAILY PRN; Protocol PRN Reason: Per Protocol Montelukast Sodium (Montelukast 10 Mg Tab) 10 mg PO HS [facility] Last Admin: 01/10/23 20:36 Dose: 10 mg Naloxone HCl (Naloxone 0.4 Mg/Ml 1 Ml Vial) 0.2 mg IV Q2M PRN PRN Reason: Opioid Reversal Duoneb ([id number] (/Ipratropium0.5mg)) 1 each INHALATION RT-QID [facility] Last Admin: 01/09/23 16:12 Dose: 1 each Pantoprazole Sodium (Pantoprazole 40 Mg/10 Ml Vial) 40 mg IVP BID [facility] Last Admin: 01/11/23 08:58 Dose: 40 mg Ropinirole HCl (Ropinirole Hcl 4 Mg Tablet) 4 mg PO [facility] Last Admin: 01/10/23 20:36 Dose: 4 mg Theophylline (Theophylline 24 Hour 400 Mg Cap.Er.24h) 400 mg PO DAILY@0600 [facility] Last Admin: 01/11/23 06:14 Dose: Not Given Tobramycin/Dexamethasone (Tobra-Dexamet 0.3-0.1% Ophth Drops 2.5 Ml Btl) 2 drops RIGHT EYE Q4HR [facility] Last Admin: 01/11/23 08:33 Dose: 2 drops Verapamil HCl (Verapamil 40 Mg Tab) 40 mg PO TID [facility] Last Admin: 01/11/23 09:16 Dose: 40 mg Physical exam : GENERAL: The patient is on mechanical vent with an FI02 of 50% and peep is 5. Sedated. Well developed, well nourished. obese HEENT: Pupils are round and equally reacting to light. EOMI. No scleral icterus. No conjunctival pallor. Normocephalic, atraumatic. No pharyngeal erythema. No thyromegaly. CARDIOVASCULAR: S1 and S2 muffled PULMONARY: diminished breath sounds bilaterally with course rhonchi and faint crackles noted at the bases ABDOMEN: Soft, nontender, obese. nondistended, normoactive bowel sounds. No palpable organomegaly. MUSCULOSKELETAL: No joint swelling or deformity. EXTREMITIES: No cyanosis, clubbing, or pedal edema. NEUROLOGICAL: unable to assess, on sedation of propofol SKIN: No rashes. no petechiae. Assessment: Acute COPD exacerbation Acute on chronic hypoxic respiratory failure patient is normally at home on 3 L nasal cannula, now requriing mechanical ventilation on 01/09/2023 Acute respiratory acidosis Altered mental status possibly secondary to C02 narcosis sepsis, doubt septic shock, sepsis mostly due to hypovolemia and hypotension, requiring pressor support, now off pressor support Acute on chronic hypercapnic respiratory failure Chronic leukocytosis History of COVID-19 pneumonia Benign essential hypertension History of rheumatoid osteoarthritis Chronic back pain Former smoker Full code Plan: Recommend to continue with current medications and Patient continues on mechanical vent with an FI02 of 45% and peep of 5 and being closely monitored in the ICU. Continued on IV steroids and breathing inhalational treatments. Cultures have been negative and cefepime is being discontinued and we'll monitor closely off antibiotics recommend monitoring blood sugars before meals at bedtime and continuing with sliding scale and will add low-dose long-acting Currently undergoing sedation trials to monitor mental status with plans for weaning at this time Sister at the bedside with questions and concerns were answered to the best of our ability CODE STATUS was again readdressed and sister reports the brother who lives in [place] is the oerson who makes the decisions and she would want to remain full code and get better Due to multiple complex medical issues, overall prognosis is extremely poor and guarded The impression and plan of care has been dictated by Teresa Portillo, Nurse Practitioner as directed. Dr. Joey MD I have performed a history and examination and MDM of this patient, discussed the same with the dictator, and agree with the dictator's assessment and plan as written ,documented as a scribe. Based on total visit time, I have performed more than 50% of the visit. Objective - Vital Signs Vital signs: Vital Signs Temp 99.2 F 01/11/23 08:00 Pulse 113 H 01/11/23 09:00 Resp 16 01/11/23 09:00 BP 147/86 01/11/23 09:00 Pulse Ox 93 L 01/11/23 09:00 FiO2 45 01/11/23 09:00 Intake & Output 01/10/23 01/11/23 01/11/23 18:59 06:59 18:59 Intake Total 363.988 973.596 303.361 Output Total 955 395 365 Balance -591.012 578.596 -61.639 Intake: IV 146 373 92 0.9 carrier 20 220 60 ARTERIAL LINE 6 33 12 Cefepime 2 gm In Sodium 100 100 Chloride 0.9% 100 ml @ 25 mls/hr IVPB Q12HR [facility] Rx #:[id number] Sodium Chloride 0.9% 1, 20 20 000 ml @ 20 mls/hr IV . Q24H [facility] Rx#:[id number] Sodium Chloride 0.9% 2, 20 000 ml @ 999 mls/hr IV . Q2H1M [facility] Rx#:[id number] Intake, IV Titration 217.988 250.596 61.361 Amount Sodium Chloride 0.9% 1, 20 000 ml @ 20 mls/hr IV . Q24H [facility] Rx#:[id number] propofoL 1,000 mg In 197.988 250.596 61.361 Empty Bag 1 bag @ 20 MCG/ KG/MIN 10.452 mls/hr IV . Q9H35M [facility] Rx#:[id number] Tube Feeding 230 120 Other 120 30 Output: Urine 955 395 365 Other: Voiding Method Indwelling Catheter Indwelling Catheter ABP, PAP, CO, CI - Last Documented Arterial Blood Pressure 135/45 - Labs CBC & Chem 7: 01/12/23 01:20 01/12/23 01:20 Labs: Abnormal Lab Results - Last 24 Hours (Table) 01/10/23 01/10/23 01/11/23 Range/Units 11:52 18:20 00:22 ABG pCO2 (35-45) mmHg ABG HCO3 (21-25) mmol/L ABG Total CO2 (19-24) mmol/L ABG O2 Saturation (94-97) % POC Glucose (mg/dL) 114 H 186 H 247 H (70-110) mg/dL 01/11/23 01/11/23 01/11/23 Range/Units 06:18 06:22 06:46 ABG pCO2 56 H (35-45) mmHg ABG HCO3 35 H (21-25) mmol/L ABG Total CO2 37 H (19-24) mmol/L ABG O2 Saturation 98.1 H (94-97) % POC Glucose (mg/dL) 233 H 253 H (70-110) mg/dL Microbiology - Last 24 Hours (Table) 01/09/23 09:55 Gram Stain - Final Sputum Sputum Culture - Final 01/09/23 12:30 Blood Culture - Preliminary Blood No Growth after 24 hours 01/09/23 12:43 Blood Culture - Preliminary Blood No Growth after 24 hours
[2023-01-12] MEDS: DULoxetine HCL 30 MG CAPSULE.DR PO SCH (05:10)
[2023-01-12] MEDS: THEOPHYLLINE 24 HOUR 400 MG CAP.ER.24H PO SCH (05:11)
[2023-01-12 05:36] LABS: Glucose,Whole Blood 291 mg/dL (70-110)
[2023-01-12 06:40] LABS: ABG Base Excess 12.2 mmol/L; ABG HCO3 36 mmol/L (21-25); ABG PCO2 50 mmHg (35-45); ABG PH 7.47 (7.35-7.45); ABG PO2 78 mmHg (83-108); ABG TCO2 38 mmol/L (19-24); Allen Test Performed? Yes
[2023-01-12 06:41] LABS: ABG Oxygen Saturation 96.5 % (94-97)
--- NOTE | 2023-01-12 07:21 | XR ---
EXAMINATION TYPE: XR chest 1V portable DATE OF EXAM: 01/12/2023 5:39 AM COMPARISON: Chest radiographs from 01/11/2023 TECHNIQUE: XR chest 1V portable Portable AP radiograph of the chest. CLINICAL INDICATION:Female, 67 years old with history of Tube placement; FINDINGS: Lungs/Pleura: No pneumothorax. Small bilateral pleural effusions are associated right basilar airspac e opacity. Pulmonary vascularity: Unremarkable. Heart/mediastinum: Cardiomediastinal silhouette is unremarkable. Musculoskeletal: No acute osseous pathology. Other findings: None Lines/Tubes: Endotracheal tube with distal tip 2.2 cm above the rod Nasogastric tube with its distal tip and side-port projecting under the diaphragm. Left-sided PICC with distal tip at the superior cavoatrial junction. IMPRESSION: Persistent small bilateral pleural effusion right greater than left and associated right basilar patc hy airspace opacity which represents atelectasis and/or infiltrates.
[2023-01-12] MEDS: carvediloL 12.5 MG TAB PO SCH ×2 (07:53→17:19)
[2023-01-12] MEDS: HEPARIN SODIUM,PORCINE/PF 5,000 UNIT/0.5 ML SYRINGE SQ SCH ×2 (07:54→20:24)
[2023-01-12] MEDS: PANTOPRAZOLE 40 MG/10 ML VIAL IVP SCH ×2 (07:54→20:25)
[2023-01-12] MEDS: FUROSEMIDE 10 MG/ML 2 ML VIAL IV SCH (07:54)
[2023-01-12] MEDS: CHLORHEXIDINE GLUCONATE 15 ML CUP MUCOUS MEM SCH ×2 (07:54→20:24)
[2023-01-12] MEDS: INSULIN DETEMIR (LEVEMIR) 100 UNIT/ML SYR SQ SCH ×2 (07:54→20:24)
[2023-01-12] MEDS: FORMOTEROL FUMARATE 20 MCG/2 ML NEBU INHALATION SCH ×2 (08:28→19:13)
[2023-01-12] MEDS: BUDESONIDE 1 MG/2 ML NEBU INHALATION SCH ×2 (08:28→19:13)
[2023-01-12] MEDS: VERAPAMIL 40 MG TAB PO SCH ×3 (10:10→20:26)
[2023-01-12 11:47] LABS: Glucose,Whole Blood 302 mg/dL (70-110)
--- NOTE | 2023-01-12 12:09 | P.PN ---
Subjective Progress Note Date: 01/12/23 Principal diagnosis: Acute hypoxic and hypercapnic respiratory failure secondary to acute exacerbation of COPD 67-year-old female patient with advanced end-stage COPD with frequent hospitalizations was been listed and subsequently deactivated from lung transplant list at [facility], coming in for another exacerbation. The patient was discharged from the hospital on 01/25/2023 after having a prolonged hospitalization for COPD exacerbation and acute on top of chronic hypoxic and hypercapnic respiratory failure. Note that the patient has advanced and chronic COPD, chronic action dependence maintain on oxygen at 3 L, chronic hypercapnic respiratory failure maintained on a VPAP auto with an EPAP minimum of 5 and a maximum pressure of 15 with a pressure support of 4. She has history of other comorbid conditions including hypertension, rheumatoid arthritis, chronic pain, including chronic back pain and previous history of infections with Covid 19 from which she recovered. She has also history was 2., Osteoarthritis, restless leg, gout and impaired hearing During this current admission, the patient presented to us from [facility] for worsening shortness of breath.. The patient was quite somnolent and lethargic and tachypneic at the time of emergency presentation. This started at the [facility]. She was found to be lethargic while being on her BiPAP machine. The patient was arousable to sternal rub, yet she will go to sleep if left on terminated. Upon arrival she was immediately placed on a BiPAP. She was placed on a pressure of 12/6 cm of water. The generated tidal volume was low at around 150, and the patient had an elevated respiratory rate. Based on that, I modified the BiPAP to pressures of 15/6 cm of water. The patient is on FiO2 of 40%. Her tidal volume on a mechanical ventilator is around 250 mL. A chest x-ray was done that showed mild cardiomegaly without any Acute cardiac pulmonary process. The patient also had a blood gas that showed a pH of 7.34 with a pCO2 of 84 and pO2 of 80 and this was an FiO2 of 40% while being in the BiPAP. The echoes at 12.2 with a hemoglobin of 14 and a platelet count of 127. Serum bicarb is 49, sodium is at 139, potassium level is at 3.7. Troponin is at 0.04. LFTs are normal. On today's evaluation of 01/05/2023, the patient has done great progress. I was very much concerned and the patient is going to get intubated yesterday. I try not to intubated the patient has advanced COPD and we managed with noninvasive positive pressure ventilatory with BiPAP at a pressure of 15/6 cm of water. After she arrived to the ICU, she gradually improved. She became much more a lert and awake. She was briefly taken off the BiPAP, however overnight, she was kept on a BiPAP for further support. This morning, she is off the BiPAP and she is currently on oxygen at 3 L. There is adequate air entry bilaterally although the patient remains bronchospastic and wheezy. Chest x-ray does not show any acute abnormalities on today's evaluation. The patient otherwise is on fluids at KVO. She is on albuterol neb blotchiness 4 times a day, Pulmicort Respules 0.5 mg twice a day, IV Solu-Medrol 60 mg every 6 hours, she is also on a combination of cefepime, vancomycin that was started yesterday on an empiric basis for a possibility of underlying pneumonia. I think it's safe to discontinue the vancomycin at least for now. The primary care team also added doxycycline. The MUGA scan is at 6.5 with a hemoglobin 12.3 and a platelet count of 131. Serum bicarbs of 47. BUN is at 30 with a creatinine of 0.7 and a sodium level is at 138. She is afebrile. She is awake and alert. Should be able to eat and the patient was offered breakfast and I was told that she ate 100% of her breakfast. 01/06/2023, the patient is fully alert and awake and oriented. She is off the BiPAP and she is currently on oxygen at 3 L nasal cannula. No new complaints for now.Acute COPD exacerbation is being treated with a combination of albuterol nebulized treatments 4 times a day, Pulmicort Respules 0.5 mg twice a day, Perforomist embolus treatments twice a day, theophylline 400 mg by mouth daily, IV Solu-Medrol which is still running at a dose of 60 mg IV every 6 hours. Her antibiotic coverage is with IV cefepime. The bloodwork from today shows a WBC count of 15 with a hemoglobin of 11.7 and a platelet count of 143. Bicarb is at 40. Sodiums of 140 with a potassium level of 3.6. Blood glucose is 216 and the calcium levels at 3.2. Clinically, the patient is doing well. No complaints patient should be able to transfer outside intensive care unit. On 01/07/2023, the patient is on a medical floor. The patient got transferred out of the intensive care unit yesterday. Awake and alert. No signs of any CO2 narcosis. Remains on the same respiratory medications and combination with that she is receiving IV Solu-Medrol. She is becoming progressively more cushingoid. She has a VPAP from home and she has a BiPAP at the bedside. No altered mentation. Tolerating her diet. No nausea or vomiting cannot now. No chest pain.Very limited performance of functional status due to advanced COPD. Blood sugars at 227. Sodium is at 142 with a BUN of 38 and a creatinine of 0.6. The patient is seen today 01/08/2023 in follow-up on the regular medical floor. She is currently sitting up in bed. Awake and alert in no acute distress. She is still dyspneic with conversation. Dyspneic with minimal activity. She is currently maintaining O2 saturations in the 90s on 4 L/m per nasal cannula. She is on BiPAP 15/6 at 40% at night and during the day while mapping. Sodium 142. Potassium 3.8. Bicarb 50. BUN 38. Creatinine 0.68. Glucose 153. She is currently on albuterol, Pulmicort and Perforomist inhalations, Spiriva, Singulair, theophylline. Antibiotics in the form of cefepime. Heparin for DVT prophylaxis. Remains on oral diuretics. Patient was reevaluated today on 01/09/2023, I was rounding on the fifth floor early this morning, and I was notified about this patient having severe respiratory distress. Walks into the room, patient is on BiPAP, however she seems to be extremely restless agitated, and keeps pulling the BiPAP off. Patient is not following any instructions, she is thrashing all over the bed, and extremely agitated, tachypneic, tachycardic. Patient was given 0.5 mg of Ativan to calm her down, did not seem to help much, hence I have arranged for the patient to be transferred to the ICU upon arrival to the ICU, patient remained restless and agitated, and kept pulling her BiPAP mask off, then I went ahead and intubated the patient and she was placed on mechanical ventilation. Patient was placed on assist control rate of 201 of 450 FiO2 50% and PEEP of 5. ABG showed a pO2 of 279 pCO2 of 55 pH of 7.42, hence I cut down her rate from 20-16. Kept her on the same tidal volume, and I'm recommending titrating her FiO2 down from 50% maintaining O2 saturation above 92%. After intubating the patient patient was noted to remain hypotensive hence I recommended 2 L of fluid boluses given, did not improve much hence the patient was started on norepinephrine to titrate for a mean arterial pressure of 65 or higher. In addition to intubating the patient, patient had a central line placed in her right IJ, and she also had an arterial line placed. Chest x-ray 06 intubation and post lines placement showed appropriate position of the endotracheal tube, there was no evidence of pneumothorax, Prozac appropriate position of the right IJ central line, there was small areas of atelectasis and tiny pleural effusions. Remaining labs are pending, blood cultures are pending. Patient is empirically on antibiotics, she is on GI and DVT prophylaxis, and I was able to place a nasogastric tube, and recommended starting the patient on enteral feeding. Seen today on 01/10/2023, patient is in the ICU, intubated and mechanically ventilated. She is on assist control rate of 16 tidal volume 450 FiO2 50% and PEEP of 5 ABG showed a pO2 79 pCO2 52 pH of 7.40. Patient has been off norepinephrine since 4 AM. She is off propofol this morning, arousable, lethargic, but on physical examination she has diffuse rhonchi and wheezes. Hence no plans to pursue any further weaning trials and she will go back on propofol. Patient is hypertensive, but she is now hypertensive mostly because she is off propofol. Apparently the nurses lost her right IJ central line early this morning, I'm recommending a placement of a PICC line to be placed by interventional radiology this morning. Patient is back on Solu-Medrol, she is on cefepime empirically, cultures of blood and sputum are pending. Chest x-ray showed small right-sided pleural effusion and by basilar patchy atelectasis. Doubt infiltrates. WBC count is 8.0 hemoglobin is 11.6. Assessment normal, renal profile is normal, nutrition-guaman, the patient is receiving enteral feeding. Reevaluated today on 01/11/2023, patient remains intubated and mechanically ventilated. She is on assist control rate of 16 tidal volume 450 FiO2 50% and PEEP of 5 ABG showed a pO2 of 95 pCO2 56 pH of 7.41, I cut down her FiO2 to 45%. Patient remains on propofol at 35 mcg/kg/m she is also on vitamin HP/enteral feeding at 30 mL per hour, and she is on IV fluid to KVO. Patient remains sedated, he is hemodynamically stable, not requiring any pressors. Remains on GI and DVT prophylaxis, antibiotics have been discontinued since all the cultures have been negative including blood cultures and sputum cultures so far. Patient was on cefepime which I will discontinue. Chest x-ray showed tiny right-sided pleural effusion and left pleural effusion with bibasilar atelectasis, no clear-cut evidence of pneumonia CBC is normal and basic metabolic is unremarkable Reevaluated today on 01/12/2023, patient remains in the ICU, intubated and mechanically ventilated. Patient is on assist control rate of 16 tidal volume 450 FiO2 45% and PEEP of 5 ABG showed a pO2 of 78 pCO2 of 50 pH of 7.47, FiO2 was cut down to 40%. Remains on propofol at 20 mcg/kg/m, not requiring any pressors, she is on vital HP/for enteral nutritional support. It is at 35 mL per hour. Patient is maintaining good urine output, she is on IV fluid at 75 mL per hour. Today the patient was given a short trial of pressure support of 12 and CPAP, did not do well, and she was moving very small tidal volumes and noted to be tachypneic on physical examination she did have scattered rhonchi and wheezes. Patient is obviously not ready for any weaning trials or extubation at this point. Chest x-ray continues to show small bilateral effusions with a right basilar atelectasis. Blood cultures have been negative and sputum cultures have been negative showing mostly normal respiratory patricia, has antibiotics have been discontinued. Patient remains mostly on bronchodilators, is also on GI and DVT prophylaxis Objective - Vital Signs Vital signs: Vital Signs Temp 97.5 F L 01/12/23 08:00 Pulse 64 01/12/23 11:59 Resp 16 01/12/23 11:59 BP 147/86 01/12/23 06:00 Pulse Ox 89 L 01/12/23 11:00 FiO2 40 01/12/23 11:42 Intake & Output 01/11/23 01/12/23 01/12/23 18:59 06:59 18:59 Intake Total 931.176 904.071 460.717 Output Total 760 340 700 Balance 171.176 564.071 -239.283 Weight 88 kg 88 kg Intake: IV 276 256 138 0.9 carrier 60 ARTERIAL LINE. 36 36 18 Sodium Chloride 0.9% 1, 180 220 120 000 ml @ 20 mls/hr IV . Q24H LATESHA Rx#:[id number] Intake, IV Titration 180.176 228.071 92.717 Amount propofoL 1,000 mg In 180.176 228.071 92.717 Empty Bag 1 bag @ 20 MCG/ KG/MIN 10.452 mls/hr IV . Q9H35M LATESHA Rx#:[id number] Tube Feeding 385 420 140 Other 90 90 Output: Urine 760 340 700 Other: Voiding Method Indwelling Catheter Indwelling Catheter Indwelling Catheter ABP, PAP, CO, CI - Last Documented Arterial Blood Pressure 117/47 - Exam Physical Exam: Revealed 67-year-old female, intubated, sedated, on propofol at 20 g per kilogram per minute. Head: Atraumatic, normocephalic, patient is cushingoid. HEENT:[Neck is supple.] [No neck masses.] [No thyromegaly.] [No JVD.] Chest: Wheezing and rhonchi noted bilaterally. Cardiac Exam:, Normal S1 and S2, no S3 gallop, no murmur.] Abdomen: [Soft, nontender, no megaly, no rebound, no guarding, normal bowel sounds.] Extremities: [No clubbing, no edema, no cyanosis.] Neurological Exam: Off propofol, patient was arousable, followed simple instr uctions. Psychiatric: Could not assess. Skin: Multiple areas of bruising related to chronic use of steroids - Labs CBC & Chem 7: 01/12/23 01:20 01/12/23 01:20 Labs: Abnormal Lab Results - Last 24 Hours (Table) 01/11/23 01/12/23 01/12/23 Range/Units 18:18 00:33 01:20 RBC (3.80-5.40) m/uL Hgb (11.4-16.0) gm/dL Plt Count (150-450) k/uL Lymphocytes # (1.0-4.8) k/uL ABG pH (7.35-7.45) ABG pCO2 (35-45) mmHg ABG pO2 (83-108) mmHg ABG HCO3 (21-25) mmol/L ABG Total CO2 (19-24) mmol/L Carbon Dioxide 37 H (22-30) mmol/L BUN 37 H (7-17) mg/dL Glucose 267 H (74-99) mg/dL POC Glucose (mg/dL) 288 H 272 H (70-110) mg/dL Calcium 7.9 L (8.4-10.2) mg/dL Magnesium 2.4 H (1.6-2.3) mg/dL 01/12/23 01/12/23 01/12/23 Range/Units 01:20 05:35 06:35 RBC 3.44 L (3.80-5.40) m/uL Hgb 10.9 L (11.4-16.0) gm/dL Plt Count 148 L (150-450) k/uL Lymphocytes # 0.4 L (1.0-4.8) k/uL ABG pH 7.47 H (7.35-7.45) ABG pCO2 50 H (35-45) mmHg ABG pO2 78 L (83-108) mmHg ABG HCO3 36 H (21-25) mmol/L ABG Total CO2 38 H (19-24) mmol/L Carbon Dioxide (22-30) mmol/L BUN (7-17) mg/dL Glucose (74-99) mg/dL POC Glucose (mg/dL) 291 H (70-110) mg/dL Calcium (8.4-10.2) mg/dL Magnesium (1.6-2.3) mg/dL 01/12/23 Range/Units 11:46 RBC (3.80-5.40) m/uL Hgb (11.4-16.0) gm/dL Plt Count (150-450) k/uL Lymphocytes # (1.0-4.8) k/uL ABG pH (7.35-7.45) ABG pCO2 (35-45) mmHg ABG pO2 (83-108) mmHg ABG HCO3 (21-25) mmol/L ABG Total CO2 (19-24) mmol/L Carbon Dioxide (22-30) mmol/L BUN (7-17) mg/dL Glucose (74-99) mg/dL POC Glucose (mg/dL) 302 H (70-110) mg/dL Calcium (8.4-10.2) mg/dL Magnesium (1.6-2.3) mg/dL Microbiology - Last 24 Hours (Table) 01/09/23 12:30 Blood Culture - Preliminary Blood No Growth after 48 hours 01/09/23 12:43 Blood Culture - Preliminary Blood No Growth after 48 hours 01/09/23 09:55 Gram Stain - Final Sputum Sputum Culture - Final Assessment and Plan Assessment: Impression: Acute on chronic hypoxic and hypercapnic respiratory failure requiring intubation and mechanical ventilation on 01/09/2022. Sepsis, doubt septic shock, I believe the hypertension is hypovolemic in nature responded well to volume replacement but nonetheless required a short course of norepinephrine were in suspected septic shock, but clinically I believe this is mostly hypovolemia. Severe end-stage COPD. Acute exacerbation of COPD. 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 Failure to wean, however will try to continue weaning trials on a daily basis. Recommendation: Daily weaning trials off propofol. Continue ventilatory support Daily interruption of sedation and assessment of mental status Continue bronchodilators Cultures have been negative. Including blood and sputum Continue GI and DVT prophylaxis Continue nutritional support/enteral feeding Continue Solu-Medrol and bronchodilators Continue to monitor daily labs and daily x-rays of the chest, daily ABGs Will try daily trials of pressure support of 12 and CPAP however I have a strong feeling that the patient will eventually require tracheostomy and PEG tube placement Patient is critically ill Critical care time is over 30 minutes Time with Patient: Greater than 30
[2023-01-12 18:41] LABS: Glucose,Whole Blood 240 mg/dL (70-110)
[2023-01-12] MEDS: MONTELUKAST 10 MG TAB PO SCH (20:25)
[2023-01-12] MEDS: rOPINIRole HCL 4 MG TABLET PO SCH (20:25)
[2023-01-12] MEDS: SODIUM CHLORIDE 0.9% 1,000 ML IV SCH (20:25)
[2023-01-12] MEDS: NOREPINEPHRINE 4 MG in SODIUM CHLORIDE 0.9% 250 ML IV SCH (20:26)
--- NOTE | 2023-01-12 21:04 | P.PN ---
Subjective Progress Note Date: 01/12/23 This is a pleasant 67 years old female with past medical history of advanced COPD advanced COPD on home oxygen dependent on 3-4 L at all times, obstructive sleep apnea CPAP dependent nightly, diastolic CHF hypertension, iron deficiency anemia, rheumatoid arthritis, and chronic back pain who presented to the ER because of worsening shortness of breath for a few days duration Patient currently is lying in bed in the emergency room 6, with BiPAP machine on with parameters of 15/6, FiO2 of 40%. Patient is tachypneic breathing with direct about 34-37. Patient looks tired and she could not provide much information, she cannot talk but she is awake and oriented. She follows commands. She has minimal chest movement with expiratory wheezing. She denies any pain, no chest pain she denies any GI or urinary symptoms. She moves all extremities symmetrically. vitals reviewed and patient is afebrile. Mild Leukocytosis of 12.2, Mild Thrombocytopenia 127. Hemoglobin Normal. INR 0.9. VBG Showing High PCO2 of 84, Low pH of 7.3. BNP showing high carbon dioxide at 49, creatinine normal. Liver enzymes not elevated. Troponin negative. ProBNP is 301. Glucose 128. Chest x-ray reviewed by myself showing enlarged heart with COPD changes. Minimal chest congestion. Patient started on dexamethasone, albuterol. EKG showing normal sinus rhythm at [address]-T changes. 01/05/2023 Patient remains in the ICU, she required BiPAP all the ninth yesterday except for one hour she got some rest. Today patient showed significant improvement, she is more alert awake, pleasant. Her mentation is back to normal. Her breathing is also improving with decrease respiratory rate into 18-20, per to more than 30 yesterday. Repeat chest x-ray looks similar findings to yesterday with no obvious infiltrate or consolidation. The heart is mildly enlarged, just x-ray reviewed by myself. Other vitals and labs looks stable. pro-calcitonin is slightly elevated at 0.20 She is currently receiving IV Solu-Medrol 60 mg as well as broad-spectrum antibiotics with vancomycin and cefepime Until doxycycline. Also she is on IV Lasix daily. 01/06/2023 pt today is significantly improved , she can talk easily off the bipap machine in the moring although she was using all night, she requires few liter of oxgyen per min like 4 only Because of significant improvement and she was moved out of the ICU Her treatment was the risk related, antibiotics vancomycin and doxycycline were stopped and Cefepime. IV Lasix Switched to Oral Dose of 40 Mg Daily. While She Kept on High Dose of IV Solu-Medrol 60 Mg. 01/07/2023 Patient today having some more breathing difficulty compared to yesterday however she still looks greatly although she still have some wheezing. She is saturating 90s on 4 L oxygen via nasal cannula, no much of accessory muscles and she can talk more freely. Her chest x-ray today showing worse than admission when I reviewed it but most likely this is because of the technique. She remains on IV Solu-Medrol, 60 mg. Cefepime, oral Lasix 40 mg daily. Patient did not need BiPAP last night. Patient wants to keep the [place] cath in Place because it's harder for her to get up 01/08/2023 Patient seen and evaluated in follow-up today with pulmonary following closely. Patient is continued on 4 L via nasal cannula as well as BiPAP. Patient continues on oral steroids along with inhalers and cefepime. Patient was started on cefepime empirically for concerns of pneumonia. Patient continues to be extremely dyspneic with minimal exertion and would recommend weaning FiO2 as tolerated. Patient normally wears a CPAP and has one for the outpatient setting although would recommend continuing with BiPAP especially at night from 8 PM to 6 AM. Continue BiPAP as needed as well. Patient extremely weak and has been progressively getting more weak with each admission. Patient has been hospitalized very frequently most recently and clinically very slow to improve. Case management following as there will be plans to return to rehab or possible inpatient rehab. Will await PT/OT therapy evaluation. Patient is currently afebrile denies chest pain or palpitations. Patient reports she is tolerating diet with no reports of nausea or vomiting noted. 01/09/2023 Patient is seen and evaluated in follow up today and per nursing staff was found this morning with her oxygen and BIpap mask off and O2 saturations in the 60's. Patient was placed back on bipap and numbers improved slightly although continued to be restless, combative, and not following commands. Ordered ativan to calm and was not effective. Patient extremely dyspneic and tachypneic and working with accessory muscle use. Luckily, pulmonary was rounding on the unit and ordered transfer to ICU for possible intubation and close monitoring. Patient is afebrile and continued on cefepime empirically and sputum cultures ordered. continued on breathing treatments as well as oral prednisone. 01/10/2023 Patient is seen in follow up today and continues to be in the ICU in critical condition. Patient continues on mechanical ventilation with an FI02 of 50% and peep is 5. Patient was off pressor support and off propofol and not tolerating with no plans for weaning off the vent at this time. Peg and tracheostomy is being considered in the next few days possibly. Patient overall prognosis is extremely poor and guarded at this time. PICC line is being ordered and pending. Patient is also continued on empiric antibiotics and awaiting cultures. Patient also placed back on IV steroids per pulmonary. Patient is afebrile. 01/11/2023 Patient is seen and evaluated in follow-up today continues to be in the MICU with pulmonary food products sales representative following closely. Patient remains on mechanical ventilation working on weaning FiO2 as tolerated. FiO2 is currently at 45% with a PEEP of 5 and undergoing sedation holidays with no plans of weaning at this time. Patient was continued on Cefepime although cultures are negative and blood cultures remain negative will discontinue cefepime. Patient is continued on tube feeds and blood sugar slightly elevated will continue sliding scale and add low-dose long-acting twice daily and continue to monitor Accu-Cheks before meals and at bedtime. Recommend follow-up chest x-ray and labs in the a.m. 01/12/2023 Patient is seen and evaluated continues to be the ICU with sister at the bedside. Patient remains on mechanical ventilation with no plans of weaning at this time. FiO2 being adjusted down to 40% with a PEEP of 5 and patient is tolerating well. Patient is off pressor support as well as antibiotics and being closely monitored. Patient's blood sugars elevated and have added long- acting and will increase in continue to monitor closely. Chest x-ray today shows persistent bilateral effusions right greater than left with patchy densities and atelectasis. Patient is undergoing sedation holidays to monitor mental status. Sister at the bedside and discussed with Juventino and address their questions and concerns to the? Ability. Patient remains afebrile. Patient is continued on tube feeding and tolerating. Overall prognosis remains extremely g uarded. Review of systems: unable to obtain as patient is on mechanical vent and sedated All medications have been reviewed Active Medications Acetaminophen (Acetaminophen Tab 500 Mg Tab) 1,000 mg PO Q6HR PRN PRN Reason: Fever and/ or Pain Last Admin: 01/05/23 20:15 Dose: 1,000 mg Albuterol Sulfate (Albuterol Nebulized 2.5 Mg/3 Ml) 2.5 mg INHALATION RT-QID PRN PRN Reason: Shortness Of Breath Or Wheezing Albuterol Sulfate (Albuterol Nebulized 2.5 Mg/3 Ml) 2.5 mg INHALATION RT-Q4H [facility] Last Admin: 01/12/23 15:24 Dose: 2.5 mg Artificial Tears (Artificial Tears-Hypromellose Drops 15 Ml Btl) 2 drops BOTH EYES QID PRN PRN Reason: Dry Eye(s) Budesonide (Budesonide 1 Mg/2 Ml Nebu) 1 mg INHALATION RT-BID [facility] Last Admin: 01/12/23 08:28 Dose: 1 mg Carvedilol (Carvedilol 12.5 Mg Tab) 12.5 mg PO BID-W/MEALS [facility] Last Admin: 01/12/23 07:53 Dose: 12.5 mg Chlorhexidine Gluconate (Chlorhexidine Gluconate 15 Ml Cup) 15 ml MUCOUS MEM BID [facility] Last Admin: 01/12/23 07:54 Dose: 15 ml Dextrose/Water (Dextrose 50% Syringe 50 Ml) 25 ml IVP PER PROTOCOL PRN; Protocol PRN Reason: Hypoglycemia Dextrose/Water (Dextrose 50% Syringe 50 Ml) 50 ml IVP PER PROTOCOL PRN; Protocol PRN Reason: Hypoglycemia Duloxetine HCl (Duloxetine Hcl 30 Mg Capsule.Dr) 30 mg PO DAILY@0600 [facility] Last Admin: 01/12/23 05:10 Dose: Not Given Formoterol Fumarate (Formoterol Fumarate 20 Mcg/2 Ml Nebu) 20 mcg INHALATION RT-BID [facility] Last Admin: 01/12/23 08:28 Dose: 20 mcg Furosemide (Furosemide 10 Mg/Ml 2 Ml Vial) 20 mg IV DAILY [facility] Last Admin: 01/12/23 07:54 Dose: 20 mg Heparin Sodium (Porcine) (Heparin Sodium,Porcine/Pf 5,000 Unit/0.5 Ml Syringe) 5,000 unit SQ Q12HR [facility] Last Admin: 01/12/23 07:54 Dose: 5,000 unit Sodium Chloride (Saline 0.9%) 1,000 mls @ 20 mls/hr IV .Q24H [facility] Last Admin: 01/11/23 18:23 Dose: 20 mls/hr Propofol 1,000 mg/ IV Solution 100 mls @ 10.452 mls/hr IV .Q9H35M [facility]; Protocol Last Admin: 01/12/23 15:00 Dose: 50 mcg/kg/min, 26.13 mls/hr Norepinephrine Bitartrate 4 mg (/ Sodium Chloride) 254 mls @ 9.956 mls/hr IV .Q 24H [facility]; Protocol Last Admin: 01/11/23 14:46 Dose: Not Given Insulin Aspart (Insulin Aspart (Novolog) 100 Unit/Ml Vial) 0 unit SQ Q6H [facility]; Protocol Last Admin: 01/12/23 12:44 Dose: 4 unit Insulin Detemir (Insulin Detemir (Levemir) 100 Unit/Ml Syr) 15 unit SQ BID [facility] Methylprednisolone Sodium Succinate (Methylprednisolone Sod Succi 125 Mg/2 Ml Vial) 60 mg IV Q6HR [facility] Last Admin: 01/12/23 12:45 Dose: 60 mg Miscellaneous Information (Potassium Replacement Protocol 1 Each Misc) 1 each MISCELLANE DAILY PRN; Protocol PRN Reason: Per Protocol Miscellaneous Information (Magnesium Replacement Protocol 1 Each Misc) 1 each MISCELLANE DAILY PRN; Protocol PRN Reason: Per Protocol Montelukast Sodium (Montelukast 10 Mg Tab) 10 mg PO HS [facility] Last Admin: 01/11/23 21:18 Dose: 10 mg Naloxone HCl (Naloxone 0.4 Mg/Ml 1 Ml Vial) 0.2 mg IV Q2M PRN PRN Reason: Opioid Reversal Duoneb ([id number] (/Ipratropium0.5mg)) 1 each INHALATION RT-QID [facility] Last Admin: 01/09/23 16:12 Dose: 1 each Pantoprazole Sodium (Pantoprazole 40 Mg/10 Ml Vial) 40 mg IVP BID [facility] Last Admin: 01/12/23 07:54 Dose: 40 mg Ropinirole HCl (Ropinirole Hcl 4 Mg Tablet) 4 mg PO HS [facility] Last Admin: 01/11/23 21:19 Dose: 4 mg Theophylline (Theophylline 24 Hour 400 Mg Cap.Er.24h) 400 mg PO DAILY@0600 [facility] Last Admin: 01/12/23 05:11 Dose: Not Given Tobramycin/Dexamethasone (Tobra-Dexamet 0.3-0.1% Ophth Drops 2.5 Ml Btl) 2 drops RIGHT EYE Q4HR [facility] Last Admin: 01/12/23 15:37 Dose: 2 drops Verapamil HCl (Verapamil 40 Mg Tab) 40 mg PO TID [facility] Last Admin: 01/12/23 15:34 Dose: 40 mg Physical exam : GENERAL: The patient is on mechanical vent with an FI02 of 40% and peep is 5. Sedated. Well developed, well nourished. obese HEENT: Pupils are round and equally reacting to light. EOMI. No scleral icterus. No conjunctival pallor. Normocephalic, atraumatic. No pharyngeal erythema. No th yromegaly. CARDIOVASCULAR: S1 and S2 muffled PULMONARY: diminished breath sounds bilaterally with course rhonchi wheezes, and faint crackles noted at the bases ABDOMEN: Soft, nontender, obese. nondistended, normoactive bowel sounds. No palpable organomegaly. MUSCULOSKELETAL: No joint swelling or deformity. EXTREMITIES: No cyanosis, clubbing, or pedal edema. NEUROLOGICAL: unable to assess, on sedation of propofol SKIN: No rashes. no petechiae. Assessment: Acute COPD exacerbation Acute on chronic hypoxic respiratory failure patient is normally at home on 3 L nasal cannula, now requriing mechanical ventilation on 01/09/2023 Acute respiratory acidosis Steroid-induced hyperglycemia Altered mental status possibly secondary to C02 narcosis sepsis, doubt septic shock, sepsis mostly due to hypovolemia and hypotension, requiring pressor support, now off pressor support Acute on chronic hypercapnic respiratory failure Chronic leukocytosis History of COVID-19 pneumonia Benign essential hypertension History of rheumatoid osteoarthritis Chronic back pain Former smoker Full code Plan: Recommend to continue with current medications and Patient continues on mechanical vent with an FI02 of 40% and peep of 5 and being closely monitored in the ICU. Continued on IV steroids and breathing inhalational treatments. Cultures have been negative and cefepime discontinued being monitored closely off antibiotics recommend monitoring blood sugars before meals at bedtime and continuing with sl iding scale and long-acting. Sugars have been elevated Currently undergoing sedation trials to monitor mental status with no plans for weaning at this time Sister at the bedside with questions and concerns were answered to the best of our ability. Spoke with brother Juventino over the phone to give him updates on continued critical condition. Recommend follow-up labs and chest x-ray in the a.m. Due to multiple complex medical issues, overall prognosis is extremely poor and guarded The impression and plan of care has been dictated by Teresa Portillo, Nurse Practitioner as directed. Dr. Joey MD I have performed a history and examination and MDM of this patient, discussed the same with the dictator, and agree with the dictator's assessment and plan as written ,documented as a scribe. Based on total visit time, I have performed more than 50% of the visit. Objective - Vital Signs Vital signs: Vital Signs Temp 97.5 F L 01/12/23 08:00 Pulse 71 01/12/23 15:39 Resp 16 01/12/23 15:39 BP 147/86 01/12/23 06:00 Pulse Ox 91 L 01/12/23 15:00 FiO2 40 01/12/23 15:21 Intake & Output 01/11/23 01/12/23 01/12/23 18:59 06:59 18:59 Intake Total 931.176 904.071 732.000 Output Total 760 340 890 Balance 171.176 564.071 -158.000 Weight 88 kg 88 kg Intake: IV 276 256 207 0.9 carrier 60 ARTERIAL LINE. 36 36 27 Sodium Chloride 0.9% 1, 180 220 180 000 ml @ 20 mls/hr IV . Q24H [facility] Rx#:[id number] Intake, IV Titration 180.176 228.071 100.000 Amount propofoL 1,000 mg In 180.176 228.071 100.000 Empty Bag 1 bag @ 20 MCG/ KG/MIN 10.452 mls/hr IV . Q9H35M [facility] Rx#:[id number] Tube Feeding 385 420 305 Other 90 120 Output: Urine 760 340 890 Other: Voiding Method Indwelling Catheter Indwelling Catheter Indwelling Catheter ABP, PAP, CO, CI - Last Documented Arterial Blood Pressure 125/41 - Labs CBC & Chem 7: 01/12/23 01:20 01/12/23 01:20 Labs: Abnormal Lab Results - Last 24 Hours (Table) 01/11/23 01/12/23 01/12/23 Range/Units 18:18 00:33 01:20 RBC (3.80-5.40) m/uL Hgb (11.4-16.0) gm/dL Plt Count (150-450) k/uL Lymphocytes # (1.0-4.8) k/uL ABG pH (7.35-7.45) ABG pCO2 (35-45) mmHg ABG pO2 (83-108) mmHg ABG HCO3 (21-25) mmol/L ABG Total CO2 (19-24) mmol/L Carbon Dioxide 37 H (22-30) mmol/L BUN 37 H (7-17) mg/dL Glucose 267 H (74-99) mg/dL POC Glucose (mg/dL) 288 H 272 H (70-110) mg/dL Calcium 7.9 L (8.4-10.2) mg/dL Magnesium 2.4 H (1.6-2.3) mg/dL 01/12/23 01/12/23 01/12/23 Range/Units 01:20 05:35 06:35 RBC 3.44 L (3.80-5.40) m/uL Hgb 10.9 L (11.4-16.0) gm/dL Plt Count 148 L (150-450) k/uL Lymphocytes # 0.4 L (1.0-4.8) k/uL ABG pH 7.47 H (7.35-7.45) ABG pCO2 50 H (35-45) mmHg ABG pO2 78 L (83-108) mmHg ABG HCO3 36 H (21-25) mmol/L ABG Total CO2 38 H (19-24) mmol/L Carbon Dioxide (22-30) mmol/L BUN (7-17) mg/dL Glucose (74-99) mg/dL POC Glucose (mg/dL) 291 H (70-110) mg/dL Calcium (8.4-10.2) mg/dL Magnesium (1.6-2.3) mg/dL 01/12/23 Range/Units 11:46 RBC (3.80-5.40) m/uL Hgb (11.4-16.0) gm/dL Plt Count (150-450) k/uL Lymphocytes # (1.0-4.8) k/uL ABG pH (7.35-7.45) ABG pCO2 (35-45) mmHg ABG pO2 (83-108) mmHg ABG HCO3 (21-25) mmol/L ABG Total CO2 (19-24) mmol/L Carbon Dioxide (22-30) mmol/L BUN (7-17) mg/dL Glucose (74-99) mg/dL POC Glucose (mg/dL) 302 H (70-110) mg/dL Calcium (8.4-10.2) mg/dL Magnesium (1.6-2.3) mg/dL Microbiology - Last 24 Hours (Table) 01/09/23 12:30 Blood Culture - Preliminary Blood No Growth after 72 hours 01/09/23 12:43 Blood Culture - Preliminary Blood No Growth after 72 hours
[2023-01-12] MEDS: ACETAMINOPHEN TAB 500 MG TAB PO PRN (22:28)
[2023-01-12 23:39] LABS: Glucose,Whole Blood 293 mg/dL (70-110)
[2023-01-13] MEDS: methylPREDNISolone SOD SUCCI 125 MG/2 ML VIAL IV SCH ×5 (00:11→23:10)
[2023-01-13] MEDS: INSULIN ASPART (NovoLOG) 100 UNIT/ML VIAL SQ SCH ×5 (00:11→23:10)
[2023-01-13] MEDS: TOBRA-DEXAMET 0.3-0.1% OPHTH DROPS 2.5 ML BTL RIGHT EYE SCH ×7 (00:12→23:10)
[2023-01-13] MEDS: SODIUM CHLORIDE 0.9% 80 ML with fentaNYL (PF) 1,000 MCG IV SCH ×4 (00:15→18:33)
[2023-01-13] MEDS: ALBUTEROL NEBULIZED 2.5 MG/3 ML INHALATION SCH ×6 (02:59→23:31)
[2023-01-13 05:14] LABS: ABG Base Excess 13.8 mmol/L; ABG HCO3 38 mmol/L (21-25); ABG Oxygen Saturation 94.9 % (94-97); ABG PCO2 52 mmHg (35-45); ABG PH 7.47 (7.35-7.45); ABG PO2 70 mmHg (83-108); ABG TCO2 39 mmol/L (19-24)
[2023-01-13 05:34] LABS: Glucose,Whole Blood 247 mg/dL (70-110)
[2023-01-13] MEDS: THEOPHYLLINE 24 HOUR 400 MG CAP.ER.24H PO SCH (05:34)
[2023-01-13] MEDS: DULoxetine HCL 30 MG CAPSULE.DR PO SCH (05:34)
[2023-01-13 05:44] LABS: Basophils % (A) 0 %; Eosinophils % (A) 0 %; HCT 34.1 % (34.0-46.0); HGB 11.2 gm/dL (11.4-16.0); Lymphocytes # (A) 0.3 k/uL (1.0-4.8); Lymphocytes % (A) 5 %; MCH 32.1 pg (25.0-35.0); MCHC 32.7 g/dL (31.0-37.0); MCV 98.2 fL (80.0-100.0); Mean Platelet Volume 9.8; Monocytes # (A) 0.2 k/uL (0-1.0); Monocytes % (A) 3 %; Neutrophils # (A) 6.4 k/uL (1.3-7.7); Neutrophils % (A) 90 %; Platelet Count 170 k/uL (150-450); RBC 3.48 m/uL (3.80-5.40); RDW 15.3 % (11.5-15.5); WBC 7.1 k/uL (3.8-10.6)
[2023-01-13 05:54] LABS: African American GFR (CKD) >90 (>60 ml/min/1.73 sqM); Anion Gap -2 mmol/L; Blood Urea Nitrogen 37 mg/dL (7-17); Calcium 8.2 mg/dL (8.4-10.2); Carbon Dioxide 39 mmol/L (22-30); Chloride 100 mmol/L (98-107); Glucose 247 mg/dL (74-99); Magnesium 2.3 mg/dL (1.6-2.3); Non-African American GFR(CKD) 84 (>60 ml/min/1.73 sqM); Potassium 3.9 mmol/L (3.5-5.1); Sodium 137 mmol/L (137-145)
[2023-01-13 06:03] LABS: Allen Test Performed? no
[2023-01-13] MEDS: carvediloL 12.5 MG TAB PO SCH ×2 (06:12→18:19)
[2023-01-13] MEDS: INSULIN DETEMIR (LEVEMIR) 100 UNIT/ML SYR SQ SCH ×2 (06:46→20:37)
[2023-01-13] MEDS ORDERED: POTASSIUM BICARBONATE/CIT AC 20 MEQ TABLET.EFF NG-TUBE SCH (07:00)
--- NOTE | 2023-01-13 07:31 | XR ---
EXAMINATION TYPE: XR chest 1V portable DATE OF EXAM: 01/13/2023 Comparison: 01/12/2023 Clinical History: 67-year-old female Tube placement Findings: ET tube satisfactory. NG tube courses below the diaphragm. Left PICC tip at the cavoatrial junction. Heart remains borderline in size. Ongoing obscuration of the right hemidiaphragm from adjacent opacit y. Impression: Satisfactory ET tube. Ongoing small right pleural effusion with adjacent atelectasis and/or consolida tion.
[2023-01-13] MEDS: FORMOTEROL FUMARATE 20 MCG/2 ML NEBU INHALATION SCH ×2 (08:08→19:29)
[2023-01-13] MEDS: BUDESONIDE 1 MG/2 ML NEBU INHALATION SCH ×2 (08:08→19:29)
[2023-01-13] MEDS: PANTOPRAZOLE 40 MG/10 ML VIAL IVP SCH ×2 (08:37→20:36)
[2023-01-13] MEDS: VERAPAMIL 40 MG TAB PO SCH ×3 (08:37→20:38)
[2023-01-13] MEDS: FUROSEMIDE 10 MG/ML 2 ML VIAL IV SCH (08:37)
[2023-01-13] MEDS: CHLORHEXIDINE GLUCONATE 15 ML CUP MUCOUS MEM SCH ×2 (08:37→20:37)
[2023-01-13] MEDS: HEPARIN SODIUM,PORCINE/PF 5,000 UNIT/0.5 ML SYRINGE SQ SCH ×2 (08:37→20:37)
[2023-01-13] MEDS: NOREPINEPHRINE 4 MG in SODIUM CHLORIDE 0.9% 250 ML IV SCH (11:36)
[2023-01-13 11:47] LABS: Glucose,Whole Blood 246 mg/dL (70-110)
[2023-01-13] MEDS: LACTULOSE 20 GM/30 ML CUP PO SCH ×2 (11:52→20:37)
--- NOTE | 2023-01-13 12:12 | P.PN ---
Subjective Progress Note Date: 01/13/23 Principal diagnosis: Acute hypoxic and hypercapnic respiratory failure secondary to acute exacerbation of COPD 67-year-old female patient with advanced end-stage COPD with frequent hospitalizations was been listed and subsequently deactivated from lung transplant list at [facility], coming in for another exacerbation. The patient was discharged from the hospital on 01/25/2023 after having a prolonged hospitalization for COPD exacerbation and acute on top of chronic hypoxic and hypercapnic respiratory failure. Note that the patient has advanced and chronic COPD, chronic action dependence maintain on oxygen at 3 L, chronic hypercapnic respiratory failure maintained on a VPAP auto with an EPAP minimum of 5 and a maximum pressure of 15 with a pressure support of 4. She has history of other comorbid conditions including hypertension, rheumatoid arthritis, chronic pain, including chronic back pain and previous history of infections with Covid 19 from which she recovered. She has also history was 2., Osteoarthritis, restless leg, gout and impaired hearing During this current admission, the patient presented to us from [facility] for worsening shortness of breath.. The patient was quite somnolent and lethargic and tachypneic at the time of emergency presentation. [facility] She was found to be lethargic while being on her BiPAP machine. The patient was arousable to sternal rub, yet she will go to sleep if left on terminated. Upon arrival she was immediately placed on a BiPAP. She was placed on a pressure of 12/6 cm of water. The generated tidal volume was low at around 150, and the patient had an elevated respiratory rate. Based on that, I modified the BiPAP to pressures of 15/6 cm of water. The patient is on FiO2 of 40%. Her tidal volume on a mechanical ventilator is around 250 mL. A chest x-ray was done that showed mild cardiomegaly without any Acute cardiac pulmonary process. The patient also had a blood gas that showed a pH of 7.34 with a pCO2 of 84 and pO2 of 80 and this was an FiO2 of 40% while being in the BiPAP. The echoes at 12.2 with a hemoglobin of 14 and a platelet count of 127. Serum bicarb is 49, sodium is at 139, potassium level is at 3.7. Troponin is at 0.04. LFTs are normal. On today's evaluation of 01/05/2023, the patient has done great progress. I was very much concerned and the patient is going to get intubated yesterday. I try not to intubated the patient has advanced COPD and we managed with noninvasive positive pressure ventilatory with BiPAP at a pressure of 15/6 cm of water. After she arrived to the ICU, she gradually improved. She became much more a lert and awake. She was briefly taken off the BiPAP, however overnight, she was kept on a BiPAP for further support. This morning, she is off the BiPAP and she is currently on oxygen at 3 L. There is adequate air entry bilaterally although the patient remains bronchospastic and wheezy. Chest x-ray does not show any acute abnormalities on today's evaluation. The patient otherwise is on fluids at KVO. She is on albuterol neb blotchiness 4 times a day, Pulmicort Respules 0.5 mg twice a day, IV Solu-Medrol 60 mg every 6 hours, she is also on a combination of cefepime, vancomycin that was started yesterday on an empiric basis for a possibility of underlying pneumonia. I think it's safe to discontinue the vancomycin at least for now. The primary care team also added doxycycline. The MUGA scan is at 6.5 with a hemoglobin 12.3 and a platelet count of 131. Serum bicarbs of 47. BUN is at 30 with a creatinine of 0.7 and a sodium level is at 138. She is afebrile. She is awake and alert. Should be able to eat and the patient was offered breakfast and I was told that she ate 100% of her breakfast. 01/06/2023, the patient is fully alert and awake and oriented. She is off the BiPAP and she is currently on oxygen at 3 L nasal cannula. No new complaints for now.Acute COPD exacerbation is being treated with a combination of albuterol nebulized treatments 4 times a day, Pulmicort Respules 0.5 mg twice a day, Perforomist embolus treatments twice a day, theophylline 400 mg by mouth daily, IV Solu-Medrol which is still running at a dose of 60 mg IV every 6 hours. Her antibiotic coverage is with IV cefepime. The bloodwork from today shows a WBC count of 15 with a hemoglobin of 11.7 and a platelet count of 143. Bicarb is at 40. Sodiums of 140 with a potassium level of 3.6. Blood glucose is 216 and the calcium levels at 3.2. Clinically, the patient is doing well. No complaints patient should be able to transfer outside intensive care unit. On 01/07/2023, the patient is on a medical floor. The patient got transferred out of the intensive care unit yesterday. Awake and alert. No signs of any CO2 narcosis. Remains on the same respiratory medications and combination with that she is receiving IV Solu-Medrol. She is becoming progressively more cushingoid. She has a VPAP from home and she has a BiPAP at the bedside. No altered mentation. Tolerating her diet. No nausea or vomiting cannot now. No chest pain.Very limited performance of functional status due to advanced COPD. Blood sugars at 227. Sodium is at 142 with a BUN of 38 and a creatinine of 0.6. The patient is seen today 01/08/2023 in follow-up on the regular medical floor. She is currently sitting up in bed. Awake and alert in no acute distress. She is still dyspneic with conversation. Dyspneic with minimal activity. She is currently maintaining O2 saturations in the 90s on 4 L/m per nasal cannula. She is on BiPAP 15/6 at 40% at night and during the day while mapping. Sodium 142. Potassium 3.8. Bicarb 50. BUN 38. Creatinine 0.68. Glucose 153. She is currently on albuterol, Pulmicort and Perforomist inhalations, Spiriva, Singulair, theophylline. Antibiotics in the form of cefepime. Heparin for DVT prophylaxis. Remains on oral diuretics. Patient was reevaluated today on 01/09/2023, I was rounding on the fifth floor early this morning, and I was notified about this patient having severe respiratory distress. Walks into the room, patient is on BiPAP, however she seems to be extremely restless agitated, and keeps pulling the BiPAP off. Patient is not following any instructions, she is thrashing all over the bed, and extremely agitated, tachypneic, tachycardic. Patient was given 0.5 mg of Ativan to calm her down, did not seem to help much, hence I have arranged for the patient to be transferred to the ICU upon arrival to the ICU, patient remained restless and agitated, and kept pulling her BiPAP mask off, then I went ahead and intubated the patient and she was placed on mechanical ventilation. Patient was placed on assist control rate of 201 of 450 FiO2 50% and PEEP of 5. ABG showed a pO2 of 279 pCO2 of 55 pH of 7.42, hence I cut down her rate from 20-16. Kept her on the same tidal volume, and I'm recommending titrating her FiO2 down from 50% maintaining O2 saturation above 92%. After intubating the patient patient was noted to remain hypotensive hence I recommended 2 L of fluid boluses given, did not improve much hence the patient was started on norepinephrine to titrate for a mean arterial pressure of 65 or higher. In addition to intubating the patient, patient had a central line placed in her right IJ, and she also had an arterial line placed. Chest x-ray 06 intubation and post lines placement showed appropriate position of the endotracheal tube, there was no evidence of pneumothorax, Prozac appropriate position of the right IJ central line, there was small areas of atelectasis and tiny pleural effusions. Remaining labs are pending, blood cultures are pending. Patient is empirically on antibiotics, she is on GI and DVT prophylaxis, and I was able to place a nasogastric tube, and recommended starting the patient on enteral feeding. Seen today on 01/10/2023, patient is in the ICU, intubated and mechanically ventilated. She is on assist control rate of 16 tidal volume 450 FiO2 50% and PEEP of 5 ABG showed a pO2 79 pCO2 52 pH of 7.40. Patient has been off norepinephrine since 4 AM. She is off propofol this morning, arousable, lethargic, but on physical examination she has diffuse rhonchi and wheezes. Hence no plans to pursue any further weaning trials and she will go back on propofol. Patient is hypertensive, but she is now hypertensive mostly because she is off propofol. Apparently the nurses lost her right IJ central line early this morning, I'm recommending a placement of a PICC line to be placed by interventional radiology this morning. Patient is back on Solu-Medrol, she is on cefepime empirically, cultures of blood and sputum are pending. Chest x-ray showed small right-sided pleural effusion and by basilar patchy atelectasis. Doubt infiltrates. WBC count is 8.0 hemoglobin is 11.6. Assessment normal, renal profile is normal, nutrition-guaman, the patient is receiving enteral feeding. Reevaluated today on 01/11/2023, patient remains intubated and mechanically ventilated. She is on assist control rate of 16 tidal volume 450 FiO2 50% and PEEP of 5 ABG showed a pO2 of 95 pCO2 56 pH of 7.41, I cut down her FiO2 to 45%. Patient remains on propofol at 35 mcg/kg/m she is also on vitamin HP/enteral feeding at 30 mL per hour, and she is on IV fluid to KVO. Patient remains sedated, he is hemodynamically stable, not requiring any pressors. Remains on GI and DVT prophylaxis, antibiotics have been discontinued since all the cultures have been negative including blood cultures and sputum cultures so far. Patient was on cefepime which I will discontinue. Chest x-ray showed tiny right-sided pleural effusion and left pleural effusion with bibasilar atelectasis, no clear-cut evidence of pneumonia CBC is normal and basic metabolic is unremarkable Reevaluated today on 01/12/2023, patient remains in the ICU, intubated and mechanically ventilated. Patient is on assist control rate of 16 tidal volume 450 FiO2 45% and PEEP of 5 ABG showed a pO2 of 78 pCO2 of 50 pH of 7.47, FiO2 was cut down to 40%. Remains on propofol at 20 mcg/kg/m, not requiring any pressors, she is on vital HP/for enteral nutritional support. It is at 35 mL per hour. Patient is maintaining good urine output, she is on IV fluid at 75 mL per hour. Today the patient was given a short trial of pressure support of 12 and CPAP, did not do well, and she was moving very small tidal volumes and noted to be tachypneic on physical examination she did have scattered rhonchi and wheezes. Patient is obviously not ready for any weaning trials or extubation at this point. Chest x-ray continues to show small bilateral effusions with a right basilar atelectasis. Blood cultures have been negative and sputum cultures have been negative showing mostly normal respiratory patricia, has antibiotics have been discontinued. Patient remains mostly on bronchodilators, is also on GI and DVT prophylaxis Reevaluated today on 01/13/2023, patient remains in the ICU, intubated and mechanically ventilated. She is on assist control rate of 16 tidal volume 450 FiO2 40% and PEEP of 5 ABG showed a pO2 of 70 pCO2 52 pH of 7.47 hence no change was made in her ventilator settings. Patient remains on propofol at 20 mcg/kg/m IV fluid at KVO vital HP at 25 mL per hour not requiring any pressors. However the patient became extremely agitated yesterday in spite of maximal dose of propofol hence I started the patient on fentanyl at 0.5 mcg/kg per hour. And she remains on fentanyl propofol was cut down to 40 mics per kilo per minute. Chest x-ray is basically the same showing some bibasilar atelectasis especially at the right base. And small pleural effusions. WBC count is 7.1 hemoglobin 11.2 electrolytes are normal bicarb is 39, renal profile is normal blood sugar is 247 Objective - Vital Signs Vital signs: Vital Signs Temp 98.8 F 01/13/23 04:00 Pulse 46 L 01/13/23 11:11 Resp 16 01/13/23 11:00 BP 147/86 01/13/23 09:03 Pulse Ox 93 L 01/13/23 11:00 FiO2 40 01/13/23 12:00 Intake & Output 01/12/23 01/13/23 01/13/23 18:59 06:59 18:59 Intake Total 1004.423 881.028 477.338 Output Total 1030 370 535 Balance -25.577 511.028 -57.662 Weight 88 kg 88.3 kg Intake: IV 276 276 138 ARTERIAL LINE. 36 36 18 Sodium Chloride 0.9% 1, 240 240 120 000 ml @ 20 mls/hr IV . Q24H LATESHA Rx#:[id number] Intake, IV Titration 198.423 275.028 99.338 Amount propofoL 1,000 mg In 198.423 275.028 99.338 Empty Bag 1 bag @ 20 MCG/ KG/MIN 10.452 mls/hr IV . Q9H35M LATESHA Rx#:[id number] Tube Feeding 380 300 150 Other 150 30 90 Output: Urine 1030 370 535 Other: Voiding Method Indwelling Catheter Indwelling Catheter Indwelling Catheter ABP, PAP, CO, CI - Last Documented Arterial Blood Pressure 139/54 - Exam Physical Exam: Revealed 67-year-old female, intubated, sedated, on propofol , and now she is on fentanyl in addition to propofol. Head: Atraumatic, normocephalic, patient is cushingoid. HEENT:[Neck is supple.] [No neck masses.] [No thyromegaly.] [No JVD.] Chest: Scattered wheezing noted bilaterally diminished at the bases. Cardiac Exam:, Normal S1 and S2, no S3 gallop, no murmur.] Abdomen: [Soft, nontender, no megaly, no rebound, no guarding, normal bowel sounds.] Extremities: [No clubbing, no edema, no cyanosis.] Neurological Exam: Could not assess, patient is sedated on propofol and on fen tanyl. Psychiatric: Could not assess. Skin: Multiple areas of ecchymosis secondary to chronic use of steroids - Labs CBC & Chem 7: 01/13/23 05:30 01/13/23 05:30 Labs: Abnormal Lab Results - Last 24 Hours (Table) 01/12/23 01/12/23 01/13/23 Range/Units 18:37 23:38 05:11 RBC (3.80-5.40) m/uL Hgb (11.4-16.0) gm/dL Lymphocytes # (1.0-4.8) k/uL ABG pH 7.47 H (7.35-7.45) ABG pCO2 52 H (35-45) mmHg ABG pO2 70 L (83-108) mmHg ABG HCO3 38 H (21-25) mmol/L ABG Total CO2 39 H (19-24) mmol/L Carbon Dioxide (22-30) mmol/L BUN (7-17) mg/dL Glucose (74-99) mg/dL POC Glucose (mg/dL) 240 H 293 H (70-110) mg/dL Calcium (8.4-10.2) mg/dL 01/13/23 01/13/23 01/13/23 Range/Units 05:30 05:30 05:31 RBC 3.48 L (3.80-5.40) m/uL Hgb 11.2 L (11.4-16.0) gm/dL Lymphocytes # 0.3 L (1.0-4.8) k/uL ABG pH (7.35-7.45) ABG pCO2 (35-45) mmHg ABG pO2 (83-108) mmHg ABG HCO3 (21-25) mmol/L ABG Total CO2 (19-24) mmol/L Carbon Dioxide 39 H (22-30) mmol/L BUN 37 H (7-17) mg/dL Glucose 247 H (74-99) mg/dL POC Glucose (mg/dL) 247 H (70-110) mg/dL Calcium 8.2 L (8.4-10.2) mg/dL 01/13/23 Range/Units 11:45 RBC (3.80-5.40) m/uL Hgb (11.4-16.0) gm/dL Lymphocytes # (1.0-4.8) k/uL ABG pH (7.35-7.45) ABG pCO2 (35-45) mmHg ABG pO2 (83-108) mmHg ABG HCO3 (21-25) mmol/L ABG Total CO2 (19-24) mmol/L Carbon Dioxide (22-30) mmol/L BUN (7-17) mg/dL Glucose (74-99) mg/dL POC Glucose (mg/dL) 246 H (70-110) mg/dL Calcium (8.4-10.2) mg/dL Microbiology - Last 24 Hours (Table) 01/09/23 12:30 Blood Culture - Preliminary Blood No Growth after 72 hours 01/09/23 12:43 Blood Culture - Preliminary Blood No Growth after 72 hours Assessment and Plan Assessment: Impression: Acute on chronic hypoxic and hypercapnic respiratory failure requiring intubation and mechanical ventilation on 01/09/2022. Sepsis, doubt septic shock, I believe the hypertension is hypovolemic in nature responded well to volume replacement but nonetheless required a short course of norepinephrine were in suspected septic shock, but clinically I believe this is mostly hypovolemia. Severe end-stage COPD. Acute exacerbation of COPD. 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 Failure to wean, however will try to continue weaning trials on a daily basis. Recommendation: Continue ventilatory support Continue sedation using propofol and fentanyl SS mental status off sedation today Not ready for any weaning trials yesterday the patient was given a very short trial of pressure support and CPAP failed miserably. Continue GI and DVT prophylaxis Continue nutritional support/enteral feeding Continue bronchodilators including Solu-Medrol No need for antibiotics at this point Continue to monitor daily x-rays and labs as well as daily ABGs Potential weaning trials on a daily basis until next week, if no improvement patient may need a trach and PEG tube placement. Remains critically ill We will continue to follow critical care time is over 30 minutes Time with Patient: Greater than 30
--- NOTE | 2023-01-13 15:26 | P.PN ---
Subjective Progress Note Date: 01/13/23 This is a pleasant 67 years old female with past medical history of advanced COPD advanced COPD on home oxygen dependent on 3-4 L at all times, obstructive sleep apnea CPAP dependent nightly, diastolic CHF hypertension, iron deficiency anemia, rheumatoid arthritis, and chronic back pain who presented to the ER because of worsening shortness of breath for a few days duration Patient currently is lying in bed in the emergency room 6, with BiPAP machine on with parameters of 15/6, FiO2 of 40%. Patient is tachypneic breathing with direct about 34-37. Patient looks tired and she could not provide much information, she cannot talk but she is awake and oriented. She follows commands. She has minimal chest movement with expiratory wheezing. She denies any pain, no chest pain she denies any GI or urinary symptoms. She moves all extremities symmetrically. vitals reviewed and patient is afebrile. Mild Leukocytosis of 12.2, Mild Thrombocytopenia 127. Hemoglobin Normal. INR 0.9. VBG Showing High PCO2 of 84, Low pH of 7.3. BNP showing high carbon dioxide at 49, creatinine normal. Liver enzymes not elevated. Troponin negative. ProBNP is 301. Glucose 128. Chest x-ray reviewed by myself showing enlarged heart with COPD changes. Minimal chest congestion. Patient started on dexamethasone, albuterol. EKG showing normal sinus rhythm at [address]-T changes. 01/05/2023 Patient remains in the ICU, she required BiPAP all the ninth yesterday except for one hour she got some rest. Today patient showed significant improvement, she is more alert awake, pleasant. Her mentation is back to normal. Her breathing is also improving with decrease respiratory rate into 18-20, per to more than 30 yesterday. Repeat chest x-ray looks similar findings to yesterday with no obvious infiltrate or consolidation. The heart is mildly enlarged, just x-ray reviewed by myself. Other vitals and labs looks stable. pro-calcitonin is slightly elevated at 0.20 She is currently receiving IV Solu-Medrol 60 mg as well as broad-spectrum antibiotics with vancomycin and cefepime Until doxycycline. Also she is on IV Lasix daily. 01/06/2023 pt today is significantly improved , she can talk easily off the bipap machine in the moring although she was using all night, she requires few liter of oxgyen per min like 4 only Because of significant improvement and she was moved out of the ICU Her treatment was the risk related, antibiotics vancomycin and doxycycline were stopped and Cefepime. IV Lasix Switched to Oral Dose of 40 Mg Daily. While She Kept on High Dose of IV Solu-Medrol 60 Mg. 01/07/2023 Patient today having some more breathing difficulty compared to yesterday however she still looks greatly although she still have some wheezing. She is saturating 90s on 4 L oxygen via nasal cannula, no much of accessory muscles and she can talk more freely. Her chest x-ray today showing worse than admission when I reviewed it but most likely this is because of the technique. She remains on IV Solu-Medrol, 60 mg. Cefepime, oral Lasix 40 mg daily. Patient did not need BiPAP last night. Patient wants to keep the [place] cath in Place because it's harder for her to get up 01/08/2023 Patient seen and evaluated in follow-up today with pulmonary following closely. Patient is continued on 4 L via nasal cannula as well as BiPAP. Patient continues on oral steroids along with inhalers and cefepime. Patient was started on cefepime empirically for concerns of pneumonia. Patient continues to be extremely dyspneic with minimal exertion and would recommend weaning FiO2 as tolerated. Patient normally wears a CPAP and has one for the outpatient setting although would recommend continuing with BiPAP especially at night from 8 PM to 6 AM. Continue BiPAP as needed as well. Patient extremely weak and has been progressively getting more weak with each admission. Patient has been hospitalized very frequently most recently and clinically very slow to improve. Case management following as there will be plans to return to rehab or possible inpatient rehab. Will await PT/OT therapy evaluation. Patient is currently afebrile denies chest pain or palpitations. Patient reports she is tolerating diet with no reports of nausea or vomiting noted. 01/09/2023 Patient is seen and evaluated in follow up today and per nursing staff was found this morning with her oxygen and BIpap mask off and O2 saturations in the 60's. Patient was placed back on bipap and numbers improved slightly although continued to be restless, combative, and not following commands. Ordered ativan to calm and was not effective. Patient extremely dyspneic and tachypneic and working with accessory muscle use. Luckily, pulmonary was rounding on the unit and ordered transfer to ICU for possible intubation and close monitoring. Patient is afebrile and continued on cefepime empirically and sputum cultures ordered. continued on breathing treatments as well as oral prednisone. 01/10/2023 Patient is seen in follow up today and continues to be in the ICU in critical condition. Patient continues on mechanical ventilation with an FI02 of 50% and peep is 5. Patient was off pressor support and off propofol and not tolerating with no plans for weaning off the vent at this time. Peg and tracheostomy is being considered in the next few days possibly. Patient overall prognosis is extremely poor and guarded at this time. PICC line is being ordered and pending. Patient is also continued on empiric antibiotics and awaiting cultures. Patient also placed back on IV steroids per pulmonary. Patient is afebrile. 01/11/2023 Patient is seen and evaluated in follow-up today continues to be in the MICU with pulmonary heel seat fitter following closely. Patient remains on mechanical ventilation working on weaning FiO2 as tolerated. FiO2 is currently at 45% with a PEEP of 5 and undergoing sedation holidays with no plans of weaning at this time. Patient was continued on Cefepime although cultures are negative and blood cultures remain negative will discontinue cefepime. Patient is continued on tube feeds and blood sugar slightly elevated will continue sliding scale and add low-dose long-acting twice daily and continue to monitor Accu-Cheks before meals and at bedtime. Recommend follow-up chest x-ray and labs in the a.m. 01/12/2023 Patient is seen and evaluated continues to be the ICU with sister at the bedside. Patient remains on mechanical ventilation with no plans of weaning at this time. FiO2 being adjusted down to 40% with a PEEP of 5 and patient is tolerating well. Patient is off pressor support as well as antibiotics and being closely monitored. Patient's blood sugars elevated and have added long- acting and will increase in continue to monitor closely. Chest x-ray today shows persistent bilateral effusions right greater than left with patchy densities and atelectasis. Patient is undergoing sedation holidays to monitor mental status. Sister at the bedside and discussed with Juventino and address their questions and concerns to the? Ability. Patient remains afebrile. Patient is continued on tube feeding and tolerating. Overall prognosis remains extremely g uarded. 01/13/2023 Patient is evaluated today continues to be in the ICU and undergoing weaning tri als of sedation and had CPAP trial yesterday and did not tolerate well became increasingly agitated on maximum propofol requiring sentinel. Propofol being titrated down. Patient continues off pressor support. Patient is maintained of IV antibiotics and is continued on IV steroids along with breathing treatments. Patient being started on lactulose unknown last bowel movement. Recommend daily chest x-rays and follow-up labs. Recommend to replace electrolytes per protocol. Blood sugars remain elevated and tolerating tube feeds and will continue sliding scale and increased long-acting to 20 units twice daily. Recommend Accu-Cheks before meals and at bedtime. Review of systems: unable to obtain as patient is on mechanical vent and sedated All medications have been reviewed Active Medications Acetaminophen (Acetaminophen Tab 500 Mg Tab) 1,000 mg PO Q6HR PRN PRN Reason: Fever and/ or Pain Last Admin: 01/12/23 22:28 Dose: 1,000 mg Albuterol Sulfate (Albuterol Nebulized 2.5 Mg/3 Ml) 2.5 mg INHALATION RT-QID PRN PRN Reason: Shortness Of Breath Or Wheezing Albuterol Sulfate (Albuterol Nebulized 2.5 Mg/3 Ml) 2.5 mg INHALATION RT-Q4H [facility] Last Admin: 01/13/23 11:00 Dose: 2.5 mg Artificial Tears (Artificial Tears-Hypromellose Drops 15 Ml Btl) 2 drops BOTH EYES QID PRN PRN Reason: Dry Eye(s) Budesonide (Budesonide 1 Mg/2 Ml Nebu) 1 mg INHALATION RT-BID [facility] Last Admin: 01/13/23 08:08 Dose: 1 mg Carvedilol (Carvedilol 12.5 Mg Tab) 12.5 mg PO BID-W/MEALS [facility] Last Admin: 01/13/23 06:12 Dose: Not Given Chlorhexidine Gluconate (Chlorhexidine Gluconate 15 Ml Cup) 15 ml MUCOUS MEM BID [facility] Last Admin: 01/13/23 08:37 Dose: 15 ml Dextrose/Water (Dextrose 50% Syringe 50 Ml) 25 ml IVP PER PROTOCOL PRN; Protocol PRN Reason: Hypoglycemia Dextrose/Water (Dextrose 50% Syringe 50 Ml) 50 ml IVP PER PROTOCOL PRN; Protocol PRN Reason: Hypoglycemia Duloxetine HCl (Duloxetine Hcl 30 Mg Capsule.) 30 mg PO DAILY@0600 [facility] Last Admin: 01/13/23 05:34 Dose: Not Given Formoterol Fumarate (Formoterol Fumarate 20 Mcg/2 Ml Nebu) 20 mcg INHALATION RT-BID [facility] Last Admin: 01/13/23 08:08 Dose: 20 mcg Furosemide (Furosemide 10 Mg/Ml 2 Ml Vial) 20 mg IV DAILY [facility] Last Admin: 01/13/23 08:37 Dose: 20 mg Heparin Sodium (Porcine) (Heparin Sodium,Porcine/Pf 5,000 Unit/0.5 Ml Syringe) 5,000 unit SQ Q12HR [facility] Last Admin: 01/13/23 08:37 Dose: 5,000 unit Sodium Chloride (Saline 0.9%) 1,000 mls @ 20 mls/hr IV .Q24H [facility] Last Admin: 01/12/23 20:25 Dose: 20 mls/hr Propofol 1,000 mg/ IV Solution 100 mls @ 10.452 mls/hr IV .Q9H35M [facility]; Protocol Last Titration: 01/13/23 12:10 Dose: 10 mcg/kg/min, 5.226 mls/hr Norepinephrine Bitartrate 4 mg (/ Sodium Chloride) 254 mls @ 9.956 mls/hr IV .Q24H [facility]; Protocol Last Admin: 01/13/23 11:36 Dose: Not Given Fentanyl Citrate 1,000 mcg/ (Sodium Chloride) 100 mls @ 4.4 mls/hr IV .[id number] [facility] Last Admin: 01/13/23 00:15 Dose: 0.5 mcg/kg/hr, 4.4 mls/hr Insulin Aspart (Insulin Aspart (Novolog) 100 Unit/Ml Vial) 0 unit SQ Q6H [facility]; Protocol Last Admin: 01/13/23 11:52 Dose: 4 unit Insulin Detemir (Insulin Detemir (Levemir) 100 Unit/Ml Syr) 20 unit SQ BID@0700,2100 [facility] Lactulose (Lactulose 20 Gm/30 Ml Cup) 20 gm PO BID [facility] Last Admin: 01/13/23 11:52 Dose: 20 gm Methylprednisolone Sodium Succinate (Methylprednisolone Sod Succi 125 Mg/2 Ml Vial) 60 mg IV Q6HR [facility] Last Admin: 01/13/23 11:52 Dose: 60 mg Miscellaneous Information (Potassium Replacement Protocol 1 Each Misc) 1 each MISCELLANE DAILY PRN; Protocol PRN Reason: Per Protocol Miscellaneous Information (Magnesium Replacement Protocol 1 Each Mis) 1 each MISCELLANE DAILY PRN; Protocol PRN Reason: Per Protocol Montelukast Sodium (Montelukast 10 Mg Tab) 10 mg PO HS [facility] Last Admin: 01/12/23 20:25 Dose: 10 mg Naloxone HCl (Naloxone 0.4 Mg/Ml 1 Ml Vial) 0.2 mg IV Q2M PRN PRN Reason: Opioid Reversal Duoneb (Tyuladrdn4lo (/Ipratropium0.5mg)) 1 each INHALATION RT-QID [facility] Last Admin: 01/09/23 16:12 Dose: 1 each Pantoprazole Sodium (Pantoprazole 40 Mg/10 Ml Vial) 40 mg IVP BID [facility] Last Admin: 01/13/23 08:37 Dose: 40 mg Ropinirole HCl (Ropinirole Hcl 4 Mg Tablet) 4 mg PO HS [facility] Last Admin: 01/12/23 20:25 Dose: 4 mg Theophylline (Theophylline 24 Hour 400 Mg Cap.Er.24h) 400 mg PO DAILY@0600 [facility] Last Admin: 01/13/23 05:34 Dose: Not Given Tobramycin/Dexamethasone (Tobra-Dexamet 0.3-0.1% Ophth Drops 2.5 Ml Btl) 2 drops RIGHT EYE Q4HR [facility] Last Admin: 01/13/23 12:08 Dose: 2 drops Verapamil HCl (Verapamil 40 Mg Tab) 40 mg PO TID [facility] Last Admin: 01/13/23 08:37 Dose: 40 mg Physical exam : GENERAL: The patient is on mechanical vent with an FI02 of 40% and peep is 5. Sedated. Well developed, well nourished. obese HEENT: Pupils are round and equally reacting to light. EOMI. No scleral icterus. No conjunctival pallor. Normocephalic, atraumatic. No pharyngeal erythema. No thyromegaly. CARDIOVASCULAR: S1 and S2 muffled PULMONARY: diminished breath sounds bilaterally with course rhonchi wheezes, and faint crackles noted at the bases ABDOMEN: Soft, nontender, obese. nondistended, normoactive bowel sounds. No palpable organomegaly. MUSCULOSKELETAL: No joint swelling or deformity. EXTREMITIES: No cyanosis, clubbing, or pedal edema. NEUROLOGICAL: unable to assess, on sedation of propofol SKIN: No rashes. no petechiae. Assessment: Acute COPD exacerbation Acute on chronic hypoxic respiratory failure patient is normally at home on 3 L nasal cannula, now requriing mechanical ventilation on 01/09/2023 Acute respiratory acidosis Steroid-induced hyperglycemia Altered mental status possibly secondary to C02 narcosis sepsis, doubt septic shock, sepsis mostly due to hypovolemia and hypotension, requiring pressor support, now off pressor support Acute on chronic hypercapnic respiratory failure Chronic leukocytosis History of COVID-19 pneumonia Benign essential hypertension History of rheumatoid osteoarthritis Chronic back pain Former smoker Full code Plan: Recommend to continue with current medications and Patient continues on mecha nical vent with an FI02 of 40% and peep of 5 and being closely monitored in the ICU. Continued on IV steroids and breathing inhalational treatments. Cultures have been negative and cefepime discontinued being monitored closely off antibiotics recommend monitoring blood sugars before meals at bedtime and continuing with sliding scale and long-acting. Sugars have been elevated and will again in crease long-acting insulin Continue lactulose for bowel movement Currently undergoing sedation trials to monitor mental status with no plans for weaning at this time Patient became extremely agitated yesterday requiring fentanyl and patient is continued on propofol we'll slowly titrate and remains off pressor support. Patient underwent a CPAP trial and did not do well and will be continuing on da ady weaning trials and if no improvement next week may require tracheostomy and PEG tube placement. Recommend chest x-ray in the a.m. Due to multiple complex medical issues, overall prognosis is extremely poor and guarded The impression and plan of care has been dictated as a scribe by Teresa Portillo, Nurse Practitioner as directed. Dr. Joey MD I have performed a history and examination and MDM of this patient, discussed the same with the dictator, and will be documented as a scribe. Based on total visit time, I have performed more than 50% of the visit. Objective - Vital Signs Vital signs: Vital Signs Temp 97.8 F 01/13/23 12:00 Pulse 57 L 01/13/23 15:00 Resp 16 01/13/23 15:00 BP 147/86 01/13/23 09:03 Pulse Ox 92 L 01/13/23 15:00 FiO2 40 01/13/23 15:06 Intake & Output 01/12/23 01/13/23 01/13/23 18:59 06:59 18:59 Intake Total 1004.423 881.028 625.049 Output Total 1030 370 700 Balance -25.577 511.028 -74.951 Weight 88 kg 88.3 kg Intake: IV 276 276 207 ARTERIAL LINE. 36 36 27 Sodium Chloride 0.9% 1, 240 240 180 000 ml @ 20 mls/hr IV . Q24H [facility] Rx#:[id number] Intake, IV Titration 198.423 275.028 103.049 Amount propofoL 1,000 mg In 198.423 275.028 103.049 Empty Bag 1 bag @ 20 MCG/ KG/MIN 10.452 mls/hr IV . Q9H35M [facility] Rx#:[id number] Tube Feeding 380 300 225 Other 150 30 90 Output: Urine 1030 370 700 Other: Voiding Method Indwelling Catheter Indwelling Catheter Indwelling Catheter ABP, PAP, CO, CI - Last Documented Arterial Blood Pressure 158/48 - Labs CBC & Chem 7: 01/13/23 05:30 01/13/23 05:30 Labs: Abnormal Lab Results - Last 24 Hours (Table) 01/12/23 01/12/23 01/13/23 Range/Units 18:37 23:38 05:11 RBC (3.80-5.40) m/uL Hgb (11.4-16.0) gm/dL Lymphocytes # (1.0-4.8) k/uL ABG pH 7.47 H (7.35-7.45) ABG pCO2 52 H (35-45) mmHg ABG pO2 70 L (83-108) mmHg ABG HCO3 38 H (21-25) mmol/L ABG Total CO2 39 H (19-24) mmol/L Carbon Dioxide (22-30) mmol/L BUN (7-17) mg/dL Glucose (74-99) mg/dL POC Glucose (mg/dL) 240 H 293 H (70-110) mg/dL Calcium (8.4-10.2) mg/dL 01/13/23 01/13/23 01/13/23 Range/Units 05:30 05:30 05:31 RBC 3.48 L (3.80-5.40) m/uL Hgb 11.2 L (11.4-16.0) gm/dL Lymphocytes # 0.3 L (1.0-4.8) k/uL ABG pH (7.35-7.45) ABG pCO2 (35-45) mmHg ABG pO2 (83-108) mmHg ABG HCO3 (21-25) mmol/L ABG Total CO2 (19-24) mmol/L Carbon Dioxide 39 H (22-30) mmol/L BUN 37 H (7-17) mg/dL Glucose 247 H (74-99) mg/dL POC Glucose (mg/dL) 247 H (70-110) mg/dL Calcium 8.2 L (8.4-10.2) mg/dL 01/13/23 Range/Units 11:45 RBC (3.80-5.40) m/uL Hgb (11.4-16.0) gm/dL Lymphocytes # (1.0-4.8) k/uL ABG pH (7.35-7.45) ABG pCO2 (35-45) mmHg ABG pO2 (83-108) mmHg ABG HCO3 (21-25) mmol/L ABG Total CO2 (19-24) mmol/L Carbon Dioxide (22-30) mmol/L BUN (7-17) mg/dL Glucose (74-99) mg/dL POC Glucose (mg/dL) 246 H (70-110) mg/dL Calcium (8.4-10.2) mg/dL Microbiology - Last 24 Hours (Table) 01/09/23 12:30 Blood Culture - Preliminary Blood No Growth after 96 hours 01/09/23 12:43 Blood Culture - Preliminary Blood No Growth after 96 hours
[2023-01-13 18:04] LABS: Glucose,Whole Blood 264 mg/dL (70-110)
[2023-01-13] MEDS: MONTELUKAST 10 MG TAB PO SCH (20:37)
[2023-01-13] MEDS: rOPINIRole HCL 4 MG TABLET PO SCH (20:38)
[2023-01-13] MEDS: SODIUM CHLORIDE 0.9% 1,000 ML IV SCH (20:39)
[2023-01-13 23:15] LABS: Glucose,Whole Blood 213 mg/dL (70-110)
[2023-01-14] MEDS: THEOPHYLLINE 24 HOUR 400 MG CAP.ER.24H PO SCH (00:31)
[2023-01-14] MEDS: DULoxetine HCL 30 MG CAPSULE.DR PO SCH (00:31)
[2023-01-14] MEDS: ALBUTEROL NEBULIZED 2.5 MG/3 ML INHALATION SCH ×5 (03:17→20:51)
[2023-01-14] MEDS: TOBRA-DEXAMET 0.3-0.1% OPHTH DROPS 2.5 ML BTL RIGHT EYE SCH ×5 (03:53→20:54)
[2023-01-14 05:13] LABS: ABG Base Excess 14.2 mmol/L; ABG HCO3 39 mmol/L (21-25); ABG Oxygen Saturation 93.7 % (94-97); ABG PCO2 58 mmHg (35-45); ABG PH 7.43 (7.35-7.45); ABG PO2 69 mmHg (83-108); ABG TCO2 40 mmol/L (19-24)
[2023-01-14 05:16] LABS: Glucose,Whole Blood 218 mg/dL (70-110)
[2023-01-14] MEDS: methylPREDNISolone SOD SUCCI 125 MG/2 ML VIAL IV SCH ×3 (05:24→18:19)
[2023-01-14] MEDS: INSULIN ASPART (NovoLOG) 100 UNIT/ML VIAL SQ SCH ×7 (05:24→20:45)
[2023-01-14 05:38] LABS: African American GFR (CKD) >90 (>60 ml/min/1.73 sqM); Blood Urea Nitrogen 38 mg/dL (7-17); Calcium 8.3 mg/dL (8.4-10.2); Chloride 99 mmol/L (98-107); Glucose 220 mg/dL (74-99); Non-African American GFR(CKD) 78 (>60 ml/min/1.73 sqM); Potassium 4.5 mmol/L (3.5-5.1); Sodium 139 mmol/L (137-145)
[2023-01-14] MEDS: carvediloL 12.5 MG TAB PO SCH ×2 (05:39→18:19)
[2023-01-14 05:45] LABS: Anion Gap 2 mmol/L; Carbon Dioxide 38 mmol/L (22-30)
[2023-01-14 06:10] LABS: HCT 34.2 % (34.0-46.0); HGB 11.1 gm/dL (11.4-16.0); MCHC 32.5 g/dL (31.0-37.0); MCV 98.7 fL (80.0-100.0); Mean Platelet Volume 9.4; Platelet Count 172 k/uL (150-450); RBC 3.47 m/uL (3.80-5.40); RDW 15.2 % (11.5-15.5); WBC 8.8 k/uL (3.8-10.6)
[2023-01-14] MEDS: INSULIN DETEMIR (LEVEMIR) 100 UNIT/ML SYR SQ SCH ×2 (06:13→20:45)
[2023-01-14 06:14] LABS: Allen Test Performed? no
--- NOTE | 2023-01-14 07:32 | XR ---
EXAMINATION TYPE: XR chest 1V portable DATE OF EXAM: 01/14/2023 Comparison: 01/14/2023 Clinical History: 67-year-old female Tube placement Findings: ET tube tip just below the level of the medial clavicular heads. Left PICC tip at the cavoatrial junc tion. Heart remains mildly enlarged. Rightward patient rotation alters the normal cardiomediastinal c ontours. Mild interstitial prominence is similar. Ongoing small right pleural effusion with right bas ilar opacity. Impression: Similar small right pleural effusion with adjacent atelectasis and/or consolidation. Rotated exam. Po ssible mild pulmonary vascular congestion. Clinically correlate.
[2023-01-14] MEDS: CHLORHEXIDINE GLUCONATE 15 ML CUP MUCOUS MEM SCH ×2 (08:10→20:44)
[2023-01-14] MEDS: PANTOPRAZOLE 40 MG/10 ML VIAL IVP SCH ×2 (08:10→20:44)
[2023-01-14] MEDS: FUROSEMIDE 10 MG/ML 2 ML VIAL IV SCH (08:10)
[2023-01-14] MEDS: HEPARIN SODIUM,PORCINE/PF 5,000 UNIT/0.5 ML SYRINGE SQ SCH ×2 (08:10→20:53)
[2023-01-14] MEDS: LACTULOSE 20 GM/30 ML CUP PO SCH ×2 (08:10→20:44)
[2023-01-14] MEDS: VERAPAMIL 40 MG TAB PO SCH ×3 (08:11→20:46)
[2023-01-14] MEDS: BUDESONIDE 1 MG/2 ML NEBU INHALATION SCH ×2 (08:18→20:51)
[2023-01-14] MEDS: FORMOTEROL FUMARATE 20 MCG/2 ML NEBU INHALATION SCH ×2 (08:18→20:51)
--- NOTE | 2023-01-14 10:53 | P.GSCN ---
History of Present Illness Consult date: 01/14/23 Reason for Consult: Respiratory failure, malnutrition History of present illness: This is a 67-year-old female who is in the ICU on the ventilator. Patient has severe COPD. She is unable to be extubated. Patient will need tracheostomy tube and PEG tube placement. 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 History of Any Multi-Drug Resistant Organisms: MRSA Year Discovered:: february 2021 MDRO Source:: urine Past Surgical History: Appendectomy, Back Surgery, Bowel Resection, Ear Surgery, Hysterectomy, Joint Replacement Additional Past Surgical History / Comment(s): Partial vulvectomy, TAD with unilateral oophorectomy, R colectomy, EGD, colonoscopy, total R knee arthroplasty, kyphoplasty/bx, pain procedures, bilateral myringotomy/tubes. Past Anesthesia/Blood Transfusion Reactions: No Reported Reaction Additional Past Anesthesia/Blood Transfusion Reaction / Comm: . Past Psychological History: ADD/ADHD, Anxiety, Depression Smoking Status: Former smoker Past Alcohol Use History: None Reported Past Drug Use History: None Reported - Past Family History Father Family Medical History: Cancer, COPD Additional Family Medical History / Comment(s): COLON cancer. Mother Family Medical History: Cancer Additional Family Medical History / Comment(s): ESOPHAGUS cancer. Sister(s) Family Medical History: Cancer Additional Family Medical History / Comment(s): CERVICAL cancer, basal cell cancer. Medications and Allergies Home Medications Medication Instructions Recorded Confirmed Type DULoxetine HCL [Cymbalta] 30 mg PO DAILY@0600 01/15/21 01/04/23 History Montelukast [Singulair] 10 mg PO HS 02/19/21 01/04/23 History Ferrous Sulfate [Iron (65 MG 325 mg PO DAILY 07/04/21 01/04/23 History Elemental)] Magnesium Oxide [Mag-Ox] 200 mg PO DAILY 07/14/21 01/04/23 History Meloxicam 15 mg PO DAILY@0600 08/05/21 01/04/23 History Cetirizine HCl 10 mg PO DAILY@0600 04/20/22 01/04/23 History Albuterol Sulfate [Ventolin HFA] 2 puff INHALATION RT-Q6H PRN 08/24/22 01/04/23 History Budesonide [Pulmicort] 0.5 mg INHALATION RT-BID 09/19/22 01/04/23 History Formoterol Fumarate [Perforomist] 20 mcg INHALATION RT-BID 09/19/22 01/04/23 History Ipratropium-Albuterol Nebulize 3 ml INHALATION RT-QID 09/19/22 01/04/23 History [Duoneb 0.5 mg-3 mg/3 ml Soln] Theophylline 24 Hour [Sekou-24] 400 mg PO DAILY@0600 09/19/22 01/04/23 History Verapamil HCl [Verapamil ER] 120 mg PO DAILY@0600 09/19/22 01/04/23 History rOPINIRole HCL [Requip] 4 mg PO HS 09/19/22 01/04/23 History Famotidine [Pepcid] 20 mg PO BID #60 tablet 12/18/22 01/04/23 Rx predniSONE 10 mg PO DAILY@0600 12/23/22 01/04/23 History ALPRAZolam [Xanax] 0.25 mg PO Q6H PRN #4 tab 12/29/22 01/04/23 Rx Acetaminophen Tab [Tylenol] 1,000 mg PO Q6HR PRN tab 12/29/22 01/04/23 Rx Albuterol Inhaler [Ventolin Hfa 2 puff INHALATION RT-QID each 12/29/22 01/04/23 Rx Inhaler] Doxycycline [Vibramycin] 100 mg PO BID 7 Days #14 cap 12/29/22 01/04/23 Rx Tiotropium 2.5 Mcg/Puff [Spiriva 2 puff INHALATION RT-DAILY each 12/29/22 01/04/23 Rx Respimat 2.5 Mcg] Tobra-Dexamet 0.3-0.1% Eye Adelita 2 drops RIGHT EYE Q4HR ml 12/29/22 01/04/23 Rx [Tobradex Ophth Susp] Furosemide [Lasix] 20 mg PO BID@0600,1200 01/04/23 01/04/23 History Insulin Lispro [humaLOG Kwikpen] See Protocol SQ ACHS 01/04/23 01/04/23 History carvediloL [Coreg] 6.25 mg PO BID 01/04/23 01/04/23 History Allergies Allergy/AdvReac Type Severity Reaction Status Date / Time infliximab [From Remicade] Allergy Dyspnea/HIV Verified 01/04/23 15:28 ES propoxyphene [From Darvon] Allergy Rash/Hives Verified 01/04/23 15:28 adhesive tape AdvReac "is hard Verified 01/04/23 15:28 on skin" Surgical - Exam Vital Signs Temp Pulse Resp BP Pulse Ox 97.7 F 76 18 120/67 96 01/04/23 12:35 01/04/23 12:35 01/04/23 12:35 01/04/23 12:35 01/04/23 12:35 Patient was extubated on the ventilator - General Insufflated the ventilator well nourished - Respiratory normal expansion - Cardiovascular Rhythm: regular - Abdomen Abdomen: soft, non tender Results - Labs 01/14/23 05:00 01/14/23 05:00 Abnormal Lab Results - Last 24 Hours (Table) 01/13/23 01/13/23 01/13/23 Range/Units 11:45 18:03 23:03 RBC (3.80-5.40) m/uL Hgb (11.4-16.0) gm/dL ABG pCO2 (35-45) mmHg ABG pO2 (83-108) mmHg ABG HCO3 (21-25) mmol/L ABG Total CO2 (19-24) mmol/L ABG O2 Saturation (94-97) % Carbon Dioxide (22-30) mmol/L BUN (7-17) mg/dL Glucose (74-99) mg/dL POC Glucose (mg/dL) 246 H 264 H 213 H (70-110) mg/dL Calcium (8.4-10.2) mg/dL 01/14/23 01/14/23 01/14/23 Range/Units 05:00 05:00 05:10 RBC 3.47 L (3.80-5.40) m/uL Hgb 11.1 L (11.4-16.0) gm/dL ABG pCO2 58 H (35-45) mmHg ABG pO2 69 L (83-108) mmHg ABG HCO3 39 H (21-25) mmol/L ABG Total CO2 40 H (19-24) mmol/L ABG O2 Saturation 93.7 L (94-97) % Carbon Dioxide 38 H (22-30) mmol/L BUN 38 H (7-17) mg/dL Glucose 220 H (74-99) mg/dL POC Glucose (mg/dL) (70-110) mg/dL Calcium 8.3 L (8.4-10.2) mg/dL 01/14/23 Range/Units 05:13 RBC (3.80-5.40) m/uL Hgb (11.4-16.0) gm/dL ABG pCO2 (35-45) mmHg ABG pO2 (83-108) mmHg ABG HCO3 (21-25) mmol/L ABG Total CO2 (19-24) mmol/L ABG O2 Saturation (94-97) % Carbon Dioxide (22-30) mmol/L BUN (7-17) mg/dL Glucose (74-99) mg/dL POC Glucose (mg/dL) 218 H (70-110) mg/dL Calcium (8.4-10.2) mg/dL Microbiology - Last 24 Hours (Table) 01/09/23 12:30 Blood Culture - Preliminary Blood No Growth after 96 hours 01/09/23 12:43 Blood Culture - Preliminary Blood No Growth after 96 hours Diabetes panel 01/14/23 Range/Units 05:00 Sodium 139 (137-145) mmol/L Potassium 4.5 (3.5-5.1) mmol/L Chloride 99 (98-107) mmol/L Carbon Dioxide 38 H (22-30) mmol/L BUN 38 H (7-17) mg/dL Creatinine 0.78 (0.52-1.04) mg/dL Glucose 220 H (74-99) mg/dL Calcium 8.3 L (8.4-10.2) mg/dL Calcium panel 01/14/23 Range/Units 05:00 Calcium 8.3 L (8.4-10.2) mg/dL Pituitary panel 01/14/23 Range/Units 05:00 Sodium 139 (137-145) mmol/L Potassium 4.5 (3.5-5.1) mmol/L Chloride 99 (98-107) mmol/L Carbon Dioxide 38 H (22-30) mmol/L BUN 38 H (7-17) mg/dL Creatinine 0.78 (0.52-1.04) mg/dL Glucose 220 H (74-99) mg/dL Calcium 8.3 L (8.4-10.2) mg/dL Adrenal panel 01/14/23 Range/Units 05:00 Sodium 139 (137-145) mmol/L Potassium 4.5 (3.5-5.1) mmol/L Chloride 99 (98-107) mmol/L Carbon Dioxide 38 H (22-30) mmol/L BUN 38 H (7-17) mg/dL Creatinine 0.78 (0.52-1.04) mg/dL Glucose 220 H (74-99) mg/dL Calcium 8.3 L (8.4-10.2) mg/dL Assessment and Plan Plan: Patient will be tentatively scheduled for tracheostomy and PEG tube placement tomorrow.
[2023-01-14] MEDS: NOREPINEPHRINE 4 MG in SODIUM CHLORIDE 0.9% 250 ML IV SCH (11:11)
[2023-01-14 12:04] LABS: Glucose,Whole Blood 184 mg/dL (70-110)
--- NOTE | 2023-01-14 13:02 | P.PN ---
Subjective Progress Note Date: 01/14/23 Principal diagnosis: Acute hypoxic and hypercapnic respiratory failure secondary to acute exacerbation of COPD 67-year-old female patient with advanced end-stage COPD with frequent hospitalizations was been listed and subsequently deactivated from lung transplant list at [facility], coming in for another exacerbation. The patient was discharged from the hospital on 01/25/2023 after having a prolonged hospitalization for COPD exacerbation and acute on top of chronic hypoxic and hypercapnic respiratory failure. Note that the patient has advanced and chronic COPD, chronic action dependence maintain on oxygen at 3 L, chronic hypercapnic respiratory failure maintained on a VPAP auto with an EPAP minimum of 5 and a maximum pressure of 15 with a pressure support of 4. She has history of other comorbid conditions including hypertension, rheumatoid arthritis, chronic pain, including chronic back pain and previous history of infections with Covid 19 from which she recovered. She has also history was 2., Osteoarthritis, restless leg, gout and impaired hearing During this current admission, the patient presented to us from [facility] for worsening shortness of breath.. The patient was quite somnolent and lethargic and tachypneic at the time of emergency presentation. This started at the longterm facility. She was found to be lethargic while being on her BiPAP machine. The patient was arousable to sternal rub, yet she will go to sleep if left on terminated. Upon arrival she was immediately placed on a BiPAP. She was placed on a pressure of 12/6 cm of water. The generated tidal volume was low at around 150, and the patient had an elevated respiratory rate. Based on that, I modified the BiPAP to pressures of 15/6 cm of water. The patient is on FiO2 of 40%. Her tidal volume on a mechanical ventilator is around 250 mL. A chest x-ray was done that showed mild cardiomegaly without any Acute cardiac pulmonary process. The patient also had a blood gas that showed a pH of 7.34 with a pCO2 of 84 and pO2 of 80 and this was an FiO2 of 40% while being in the BiPAP. The echoes at 12.2 with a hemoglobin of 14 and a platelet count of 127. Serum bicarb is 49, sodium is at 139, potassium level is at 3.7. Troponin is at 0.04. LFTs are normal. On today's evaluation of 01/05/2023, the patient has done great progress. I was very much concerned and the patient is going to get intubated yesterday. I try not to intubated the patient has advanced COPD and we managed with noninvasive positive pressure ventilatory with BiPAP at a pressure of 15/6 cm of water. After she arrived to the ICU, she gradually improved. She became much more a lert and awake. She was briefly taken off the BiPAP, however overnight, she was kept on a BiPAP for further support. This morning, she is off the BiPAP and she is currently on oxygen at 3 L. There is adequate air entry bilaterally although the patient remains bronchospastic and wheezy. Chest x-ray does not show any acute abnormalities on today's evaluation. The patient otherwise is on fluids at KVO. She is on albuterol neb blotchiness 4 times a day, Pulmicort Respules 0.5 mg twice a day, IV Solu-Medrol 60 mg every 6 hours, she is also on a combination of cefepime, vancomycin that was started yesterday on an empiric basis for a possibility of underlying pneumonia. I think it's safe to discontinue the vancomycin at least for now. The primary care team also added doxycycline. The MUGA scan is at 6.5 with a hemoglobin 12.3 and a platelet count of 131. Serum bicarbs of 47. BUN is at 30 with a creatinine of 0.7 and a sodium level is at 138. She is afebrile. She is awake and alert. Should be able to eat and the patient was offered breakfast and I was told that she ate 100% of her breakfast. 01/06/2023, the patient is fully alert and awake and oriented. She is off the BiPAP and she is currently on oxygen at 3 L nasal cannula. No new complaints for now.Acute COPD exacerbation is being treated with a combination of albuterol nebulized treatments 4 times a day, Pulmicort Respules 0.5 mg twice a day, Perforomist embolus treatments twice a day, theophylline 400 mg by mouth daily, IV Solu-Medrol which is still running at a dose of 60 mg IV every 6 hours. Her antibiotic coverage is with IV cefepime. The bloodwork from today shows a WBC count of 15 with a hemoglobin of 11.7 and a platelet count of 143. Bicarb is at 40. Sodiums of 140 with a potassium level of 3.6. Blood glucose is 216 and the calcium levels at 3.2. Clinically, the patient is doing well. No complaints patient should be able to transfer outside intensive care unit. On 01/07/2023, the patient is on a medical floor. The patient got transferred out of the intensive care unit yesterday. Awake and alert. No signs of any CO2 narcosis. Remains on the same respiratory medications and combination with that she is receiving IV Solu-Medrol. She is becoming progressively more cushingoid. She has a VPAP from home and she has a BiPAP at the bedside. No altered mentation. Tolerating her diet. No nausea or vomiting cannot now. No chest pain.Very limited performance of functional status due to advanced COPD. Blood sugars at 227. Sodium is at 142 with a BUN of 38 and a creatinine of 0.6. The patient is seen today 01/08/2023 in follow-up on the regular medical floor. She is currently sitting up in bed. Awake and alert in no acute distress. She is still dyspneic with conversation. Dyspneic with minimal activity. She is currently maintaining O2 saturations in the 90s on 4 L/m per nasal cannula. She is on BiPAP 15/6 at 40% at night and during the day while mapping. Sodium 142. Potassium 3.8. Bicarb 50. BUN 38. Creatinine 0.68. Glucose 153. She is currently on albuterol, Pulmicort and Perforomist inhalations, Spiriva, Singulair, theophylline. Antibiotics in the form of cefepime. Heparin for DVT prophylaxis. Remains on oral diuretics. Patient was reevaluated today on 01/09/2023, I was rounding on the fifth floor early this morning, and I was notified about this patient having severe respiratory distress. Walks into the room, patient is on BiPAP, however she seems to be extremely restless agitated, and keeps pulling the BiPAP off. Patient is not following any instructions, she is thrashing all over the bed, and extremely agitated, tachypneic, tachycardic. Patient was given 0.5 mg of Ativan to calm her down, did not seem to help much, hence I have arranged for the patient to be transferred to the ICU upon arrival to the ICU, patient remained restless and agitated, and kept pulling her BiPAP mask off, then I went ahead and intubated the patient and she was placed on mechanical ventilation. Patient was placed on assist control rate of 201 of 450 FiO2 50% and PEEP of 5. ABG showed a pO2 of 279 pCO2 of 55 pH of 7.42, hence I cut down her rate from 20-16. Kept her on the same tidal volume, and I'm recommending titrating her FiO2 down from 50% maintaining O2 saturation above 92%. After intubating the patient patient was noted to remain hypotensive hence I recommended 2 L of fluid boluses given, did not improve much hence the patient was started on norepinephrine to titrate for a mean arterial pressure of 65 or higher. In addition to intubating the patient, patient had a central line placed in her right IJ, and she also had an arterial line placed. Chest x-ray 06 intubation and post lines placement showed appropriate position of the endotracheal tube, there was no evidence of pneumothorax, Prozac appropriate position of the right IJ central line, there was small areas of atelectasis and tiny pleural effusions. Remaining labs are pending, blood cultures are pending. Patient is empirically on antibiotics, she is on GI and DVT prophylaxis, and I was able to place a nasogastric tube, and recommended starting the patient on enteral feeding. Seen today on 01/10/2023, patient is in the ICU, intubated and mechanically ventilated. She is on assist control rate of 16 tidal volume 450 FiO2 50% and PEEP of 5 ABG showed a pO2 79 pCO2 52 pH of 7.40. Patient has been off norepinephrine since 4 AM. She is off propofol this morning, arousable, lethargic, but on physical examination she has diffuse rhonchi and wheezes. Hence no plans to pursue any further weaning trials and she will go back on propofol. Patient is hypertensive, but she is now hypertensive mostly because she is off propofol. Apparently the nurses lost her right IJ central line early this morning, I'm recommending a placement of a PICC line to be placed by interventional radiology this morning. Patient is back on Solu-Medrol, she is on cefepime empirically, cultures of blood and sputum are pending. Chest x-ray showed small right-sided pleural effusion and by basilar patchy atelectasis. Doubt infiltrates. WBC count is 8.0 hemoglobin is 11.6. Assessment normal, renal profile is normal, nutrition-guaman, the patient is receiving enteral feeding. Reevaluated today on 01/11/2023, patient remains intubated and mechanically ventilated. She is on assist control rate of 16 tidal volume 450 FiO2 50% and PEEP of 5 ABG showed a pO2 of 95 pCO2 56 pH of 7.41, I cut down her FiO2 to 45%. Patient remains on propofol at 35 mcg/kg/m she is also on vitamin HP/enteral feeding at 30 mL per hour, and she is on IV fluid to KVO. Patient remains sedated, he is hemodynamically stable, not requiring any pressors. Remains on GI and DVT prophylaxis, antibiotics have been discontinued since all the cultures have been negative including blood cultures and sputum cultures so far. Patient was on cefepime which I will discontinue. Chest x-ray showed tiny right-sided pleural effusion and left pleural effusion with bibasilar atelectasis, no clear-cut evidence of pneumonia CBC is normal and basic metabolic is unremarkable Reevaluated today on 01/12/2023, patient remains in the ICU, intubated and mechanically ventilated. Patient is on assist control rate of 16 tidal volume 450 FiO2 45% and PEEP of 5 ABG showed a pO2 of 78 pCO2 of 50 pH of 7.47, FiO2 was cut down to 40%. Remains on propofol at 20 mcg/kg/m, not requiring any pressors, she is on vital HP/for enteral nutritional support. It is at 35 mL per hour. Patient is maintaining good urine output, she is on IV fluid at 75 mL per hour. Today the patient was given a short trial of pressure support of 12 and CPAP, did not do well, and she was moving very small tidal volumes and noted to be tachypneic on physical examination she did have scattered rhonchi and wheezes. Patient is obviously not ready for any weaning trials or extubation at this point. Chest x-ray continues to show small bilateral effusions with a right basilar atelectasis. Blood cultures have been negative and sputum cultures have been negative showing mostly normal respiratory patricia, has antibiotics have been discontinued. Patient remains mostly on bronchodilators, is also on GI and DVT prophylaxis Reevaluated today on 01/13/2023, patient remains in the ICU, intubated and mechanically ventilated. She is on assist control rate of 16 tidal volume 450 FiO2 40% and PEEP of 5 ABG showed a pO2 of 70 pCO2 52 pH of 7.47 hence no change was made in her ventilator settings. Patient remains on propofol at 20 mcg/kg/m IV fluid at KVO vital HP at 25 mL per hour not requiring any pressors. However the patient became extremely agitated yesterday in spite of maximal dose of propofol hence I started the patient on fentanyl at 0.5 mcg/kg per hour. And she remains on fentanyl propofol was cut down to 40 mics per kilo per minute. Chest x-ray is basically the same showing some bibasilar atelectasis especially at the right base. And small pleural effusions. WBC count is 7.1 hemoglobin 11.2 electrolytes are normal bicarb is 39, renal profile is normal blood sugar is 247 Reevaluated today on 01/14/2023, patient remains in the ICU, intubated and mechanically ventilated. She is on assist control rate of 16 tidal volume 450 FiO2 40% PEEP of 5 ABG showed a pO2 of 69 pCO2 58 pH of 7.43. Patient is still on propofol at 45 mcg/kg/m she is also on fentanyl 0.5 mics per kilo per hour receiving vital HP at 25 mL per hour. On lower doses of sedation, the patient seems to be appropriate according to the nurses, and follows simple instructions. However the patient continues to have significant abnormal lung f indings with diffuse rhonchi and wheezes bilaterally, I feel the patient is not given be able to wean easily considering his severe underlying COPD, hence [facility] consulting Dr. Burgess for possible tracheostomy and PEG tube placement in the next 24-48 hours. In the meantime I will continue present supportive care measures. And continue present treatment plan. WBC count is 8.8 hemoglobin is 11.1. Basic metabolic profile is normal renal profile is normal, chest x-ray continues to show small bilateral pleural effusions and right lower lobe atelectasis, again strongly doubt pneumonia. Objective - Vital Signs Vital signs: Vital Signs Temp 98.5 F 01/14/23 08:00 Pulse 65 01/14/23 11:13 Resp 16 01/14/23 11:00 BP 147/86 01/13/23 09:03 Pulse Ox 92 L 01/14/23 11:00 FiO2 40 01/14/23 10:28 Intake & Output 01/13/23 01/14/23 01/14/23 18:59 06:59 18:59 Intake Total 910.751 818.957 231.377 Output Total 815 440 510 Balance 95.751 378.957 -278.623 Weight 90 kg Intake: IV 276 299 62 ARTERIAL LINE. 36 39 12 Sodium Chloride 0.9% 1, 240 260 50 000 ml @ 20 mls/hr IV . Q24H LATESHA Rx#:[id number] Intake, IV Titration 214.751 104.957 39.377 Amount Sodium Chloride 0.9% 80 80.52 ml @ 0.5 MCG/KG/HR 4.4 mls/hr IV .[id number] LATESHA with fentaNYL (PF) 1,000 mcg Rx#:[id number] propofoL 1,000 mg In 134.231 104.957 39.377 Empty Bag 1 bag @ 20 MCG/ KG/MIN 10.452 mls/hr IV . [id number] LATESHA Rx#:[id number] Tube Feeding 300 325 100 Other 120 90 30 Output: Urine 815 440 510 Other: Voiding Method Indwelling Catheter Indwelling Catheter Indwelling Catheter ABP, PAP, CO, CI - Last Documented Arterial Blood Pressure 131/43 - Exam Physical Exam: Revealed 67-year-old female, intubated, sedated, on propofol , and fentanyl. Head: Atraumatic, normocephalic, patient is cushingoid. HEENT:[Neck is supple.] [No neck masses.] [No thyromegaly.] [No JVD.] Chest: Rhonchi and wheezes noted bilaterally. Cardiac Exam:, Normal S1 and S2, no S3 gallop, no murmur.] Abdomen: [Soft, nontender, no megaly, no rebound, no guarding, normal bowel sounds.] Extremities: [No clubbing, no edema, no cyanosis.] Neurological Exam: Could not assess, however according to nurses patient was appropriate on lower doses of sedation earlier. Psychiatric: Could not assess. Skin: Multiple areas of ecchymosis secondary to chronic use of steroids - Labs CBC & Chem 7: 01/14/23 05:00 01/14/23 05:00 Labs: Abnormal Lab Results - Last 24 Hours (Table) 01/13/23 01/13/23 01/14/23 Range/Units 18:03 23:03 05:00 RBC 3.47 L (3.80-5.40) m/uL Hgb 11.1 L (11.4-16.0) gm/dL ABG pCO2 (35-45) mmHg ABG pO2 (83-108) mmHg ABG HCO3 (21-25) mmol/L ABG Total CO2 (19-24) mmol/L ABG O2 Saturation (94-97) % Carbon Dioxide (22-30) mmol/L BUN (7-17) mg/dL Glucose (74-99) mg/dL POC Glucose (mg/dL) 264 H 213 H (70-110) mg/dL Calcium (8.4-10.2) mg/dL 01/14/23 01/14/23 01/14/23 Range/Units 05:00 05:10 05:13 RBC (3.80-5.40) m/uL Hgb (11.4-16.0) gm/dL ABG pCO2 58 H (35-45) mmHg ABG pO2 69 L (83-108) mmHg ABG HCO3 39 H (21-25) mmol/L ABG Total CO2 40 H (19-24) mmol/L ABG O2 Saturation 93.7 L (94-97) % Carbon Dioxide 38 H (22-30) mmol/L BUN 38 H (7-17) mg/dL Glucose 220 H (74-99) mg/dL POC Glucose (mg/dL) 218 H (70-110) mg/dL Calcium 8.3 L (8.4-10.2) mg/dL 01/14/23 Range/Units 12:02 RBC (3.80-5.40) m/uL Hgb (11.4-16.0) gm/dL ABG pCO2 (35-45) mmHg ABG pO2 (83-108) mmHg ABG HCO3 (21-25) mmol/L ABG Total CO2 (19-24) mmol/L ABG O2 Saturation (94-97) % Carbon Dioxide (22-30) mmol/L BUN (7-17) mg/dL Glucose (74-99) mg/dL POC Glucose (mg/dL) 184 H (70-110) mg/dL Calcium (8.4-10.2) mg/dL Microbiology - Last 24 Hours (Table) 01/09/23 12:30 Blood Culture - Preliminary Blood No Growth after 96 hours 01/09/23 12:43 Blood Culture - Preliminary Blood No Growth after 96 hours Assessment and Plan Assessment: Impression: Acute on chronic hypoxic and hypercapnic respiratory failure requiring intubation and mechanical ventilation on 01/09/2022. Sepsis, doubt septic shock, I believe the hypertension is hypovolemic in nature responded well to volume replacement but nonetheless required a short course of norepinephrine were in suspected septic shock, but clinically I believe this is mostly hypovolemia. Severe end-stage COPD. Acute exacerbation of COPD. 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 Failure to wean, however will try to continue weaning trials on a daily basis. Recommendation: We will arrange for tracheostomy and PEG tube placement early next week., Dr. Burgess was consulted. Continue ventilatory support Continue sedation using propofol and fentanyl Daily assessment of mental status and daily interruption of sedation Not ready for any weaning trials yesterday the patient was given a very short trial of pressure support and CPAP failed miserably. Continue GI and DVT prophylaxis Continue nutritional support/enteral feeding Continue bronchodilators including Solu-Medrol No need for antibiotics at this point, pro-calcitonin level was normal and she had full course of cefepime Continue to monitor daily x-rays and labs as well as daily ABGs Remains critically ill We will continue to follow critical care time is over 30 minutes Time with Patient: Greater than 30
[2023-01-14] MEDS: SODIUM CHLORIDE 0.9% 80 ML with fentaNYL (PF) 1,000 MCG IV SCH ×4 (13:32→19:44)
[2023-01-14 16:11] LABS: Glucose,Whole Blood 193 mg/dL (70-110)
[2023-01-14] MEDS: SODIUM CHLORIDE 0.9% 1,000 ML IV SCH (19:44)
[2023-01-14 19:49] LABS: Glucose,Whole Blood 174 mg/dL (70-110)
[2023-01-14] MEDS: MONTELUKAST 10 MG TAB PO SCH (20:44)
[2023-01-14] MEDS: rOPINIRole HCL 4 MG TABLET PO SCH (20:46)
[2023-01-14 23:16] LABS: Glucose,Whole Blood 222 mg/dL (70-110)
[2023-01-15] MEDS: methylPREDNISolone SOD SUCCI 125 MG/2 ML VIAL IV SCH ×5 (00:19→23:46)
[2023-01-15] MEDS: INSULIN ASPART (NovoLOG) 100 UNIT/ML VIAL SQ SCH ×14 (00:19→23:47)
[2023-01-15] MEDS: TOBRA-DEXAMET 0.3-0.1% OPHTH DROPS 2.5 ML BTL RIGHT EYE SCH ×6 (00:21→20:32)
[2023-01-15] MEDS: ALBUTEROL NEBULIZED 2.5 MG/3 ML INHALATION SCH ×6 (01:00→19:41)
[2023-01-15] MEDS: SODIUM CHLORIDE 0.9% 80 ML with fentaNYL (PF) 1,000 MCG IV SCH ×6 (01:23→12:17)
--- NOTE | 2023-01-15 02:49 | P.PN ---
Subjective Progress Note Date: 01/14/23 This is a pleasant 67 years old female with past medical history of advanced COPD advanced COPD on home oxygen dependent on 3-4 L at all times, obstructive sleep apnea CPAP dependent nightly, diastolic CHF hypertension, iron deficiency anemia, rheumatoid arthritis, and chronic back pain who presented to the ER because of worsening shortness of breath for a few days duration Patient currently is lying in bed in the emergency room 6, with BiPAP machine on with parameters of 15/6, FiO2 of 40%. Patient is tachypneic breathing with direct about 34-37. Patient looks tired and she could not provide much information, she cannot talk but she is awake and oriented. She follows commands. She has minimal chest movement with expiratory wheezing. She denies any pain, no chest pain she denies any GI or urinary symptoms. She moves all extremities symmetrically. vitals reviewed and patient is afebrile. Mild Leukocytosis of 12.2, Mild Thrombocytopenia 127. Hemoglobin Normal. INR 0.9. VBG Showing High PCO2 of 84, Low pH of 7.3. BNP showing high carbon dioxide at 49, creatinine normal. Liver enzymes not elevated. Troponin negative. ProBNP is 301. Glucose 128. Chest x-ray reviewed by myself showing enlarged heart with COPD changes. Minimal chest congestion. Patient started on dexamethasone, albuterol. EKG showing normal sinus rhythm at [address]-T changes. 01/05/2023 Patient remains in the ICU, she required BiPAP all the ninth yesterday except for one hour she got some rest. Today patient showed significant improvement, she is more alert awake, pleasant. Her mentation is back to normal. Her breathing is also improving with decrease respiratory rate into 18-20, per to more than 30 yesterday. Repeat chest x-ray looks similar findings to yesterday with no obvious infiltrate or consolidation. The heart is mildly enlarged, just x-ray reviewed by myself. Other vitals and labs looks stable. pro-calcitonin is slightly elevated at 0.20 She is currently receiving IV Solu-Medrol 60 mg as well as broad-spectrum antibiotics with vancomycin and cefepime Until doxycycline. Also she is on IV Lasix daily. 01/06/2023 pt today is significantly improved , she can talk easily off the bipap machine in the moring although she was using all night, she requires few liter of oxgyen per min like 4 only Because of significant improvement and she was moved out of the ICU Her treatment was the risk related, antibiotics vancomycin and doxycycline were stopped and Cefepime. IV Lasix Switched to Oral Dose of 40 Mg Daily. While She Kept on High Dose of IV Solu-Medrol 60 Mg. 01/07/2023 Patient today having some more breathing difficulty compared to yesterday however she still looks greatly although she still have some wheezing. She is saturating 90s on 4 L oxygen via nasal cannula, no much of accessory muscles and she can talk more freely. Her chest x-ray today showing worse than admission when I reviewed it but most likely this is because of the technique. She remains on IV Solu-Medrol, 60 mg. Cefepime, oral Lasix 40 mg daily. Patient did not need BiPAP last night. Patient wants to keep the [place] cath in Place because it's harder for her to get up 01/08/2023 Patient seen and evaluated in follow-up today with pulmonary following closely. Patient is continued on 4 L via nasal cannula as well as BiPAP. Patient continues on oral steroids along with inhalers and cefepime. Patient was started on cefepime empirically for concerns of pneumonia. Patient continues to be extremely dyspneic with minimal exertion and would recommend weaning FiO2 as tolerated. Patient normally wears a CPAP and has one for the outpatient setting although would recommend continuing with BiPAP especially at night from 8 PM to 6 AM. Continue BiPAP as needed as well. Patient extremely weak and has been progressively getting more weak with each admission. Patient has been hospitalized very frequently most recently and clinically very slow to improve. Case management following as there will be plans to return to rehab or possible inpatient rehab. Will await PT/OT therapy evaluation. Patient is currently afebrile denies chest pain or palpitations. Patient reports she is tolerating diet with no reports of nausea or vomiting noted. 01/09/2023 Patient is seen and evaluated in follow up today and per nursing staff was found this morning with her oxygen and BIpap mask off and O2 saturations in the 60's. Patient was placed back on bipap and numbers improved slightly although continued to be restless, combative, and not following commands. Ordered ativan to calm and was not effective. Patient extremely dyspneic and tachypneic and working with accessory muscle use. Luckily, pulmonary was rounding on the unit and ordered transfer to ICU for possible intubation and close monitoring. Patient is afebrile and continued on cefepime empirically and sputum cultures ordered. continued on breathing treatments as well as oral prednisone. 01/10/2023 Patient is seen in follow up today and continues to be in the ICU in critical condition. Patient continues on mechanical ventilation with an FI02 of 50% and peep is 5. Patient was off pressor support and off propofol and not tolerating with no plans for weaning off the vent at this time. Peg and tracheostomy is being considered in the next few days possibly. Patient overall prognosis is extremely poor and guarded at this time. PICC line is being ordered and pending. Patient is also continued on empiric antibiotics and awaiting cultures. Patient also placed back on IV steroids per pulmonary. Patient is afebrile. 01/11/2023 Patient is seen and evaluated in follow-up today continues to be in the MICU with pulmonary electrical intern following closely. Patient remains on mechanical ventilation working on weaning FiO2 as tolerated. FiO2 is currently at 45% with a PEEP of 5 and undergoing sedation holidays with no plans of weaning at this time. Patient was continued on Cefepime although cultures are negative and blood cultures remain negative will discontinue cefepime. Patient is continued on tube feeds and blood sugar slightly elevated will continue sliding scale and add low-dose long-acting twice daily and continue to monitor Accu-Cheks before meals and at bedtime. Recommend follow-up chest x-ray and labs in the a.m. 01/12/2023 Patient is seen and evaluated continues to be the ICU with sister at the bedside. Patient remains on mechanical ventilation with no plans of weaning at this time. FiO2 being adjusted down to 40% with a PEEP of 5 and patient is tolerating well. Patient is off pressor support as well as antibiotics and being closely monitored. Patient's blood sugars elevated and have added long- acting and will increase in continue to monitor closely. Chest x-ray today shows persistent bilateral effusions right greater than left with patchy densities and atelectasis. Patient is undergoing sedation holidays to monitor mental status. Sister at the bedside and discussed with Juventino and address their questions and concerns to the? Ability. Patient remains afebrile. Patient is continued on tube feeding and tolerating. Overall prognosis remains extremely g uarded. 01/13/2023 Patient is evaluated today continues to be in the ICU and undergoing weaning tri als of sedation and had CPAP trial yesterday and did not tolerate well became increasingly agitated on maximum propofol requiring sentinel. Propofol being titrated down. Patient continues off pressor support. Patient is maintained of IV antibiotics and is continued on IV steroids along with breathing treatments. Patient being started on lactulose unknown last bowel movement. Recommend daily chest x-rays and follow-up labs. Recommend to replace electrolytes per protocol. Blood sugars remain elevated and tolerating tube feeds and will continue sliding scale and increased long-acting to 20 units twice daily. Recommend Accu-Cheks before meals and at bedtime. 01/14/2023 Patient is seen in follow-up continues to be in the ICU maintained on mechanical ventilation with an FiO2 of 40% and PEEP is 5. No plans for trials of weaning today other than mild sedation holiday to assess mentation. Per nursing staff patient is following commands off sedation although does get quite restless and hypertensive and symptomatic no plans for sedation holiday today. Patient is continued on propofol and fentanyl and will continue. Patient is monitored off IV antibiotics and cultures have remained negative. Patient's blood sugars elevated and will add increased insulin covered and continue with current regimen. Pulmonary has consulted general surgery for possible tracheostomy and PEG tube placement and awaiting family decision and consent. Review of systems: unable to obtain as patient is on mechanical vent and sedated All medications have been reviewed Active Medications Acetaminophen (Acetaminophen Tab 500 Mg Tab) 1,000 mg PO Q6HR PRN PRN Reason: Fever and/ or Pain Last Admin: 01/12/23 22:28 Dose: 1,000 mg Albuterol Sulfate (Albuterol Nebulized 2.5 Mg/3 Ml) 2.5 mg INHALATION RT-QID PRN PRN Reason: Shortness Of Breath Or Wheezing Albuterol Sulfate (Albuterol Nebulized 2.5 Mg/3 Ml) 2.5 mg INHALATION RT-Q4H [facility] Last Admin: 01/15/23 01:00 Dose: 2.5 mg Artificial Tears (Artificial Tears-Hypromellose Drops 15 Ml Btl) 2 drops BOTH EYES QID PRN PRN Reason: Dry Eye(s) Budesonide (Budesonide 1 Mg/2 Ml Nebu) 1 mg INHALATION RT-BID [facility] Last Admin: 01/14/23 20:51 Dose: 1 mg Carvedilol (Carvedilol 12.5 Mg Tab) 12.5 mg PO BID-W/MEALS [facility] Last Admin: 01/14/23 18:19 Dose: 12.5 mg Chlorhexidine Gluconate (Chlorhexidine Gluconate 15 Ml Cup) 15 ml MUCOUS MEM BID [facility] Last Admin: 01/14/23 20:44 Dose: 15 ml Dextrose/Water (Dextrose 50% Syringe 50 Ml) 25 ml IVP PER PROTOCOL PRN; Protocol PRN Reason: Hypoglycemia Dextrose/Water (Dextrose 50% Syringe 50 Ml) 50 ml IVP PER PROTOCOL PRN; Protocol PRN Reason: Hypoglycemia Duloxetine HCl (Duloxetine Hcl 30 Mg Capsule.Dr) 30 mg PO DAILY@0600 [facility] Last Admin: 01/14/23 00:31 Dose: Not Given Formoterol Fumarate (Formoterol Fumarate 20 Mcg/2 Ml Nebu) 20 mcg INHALATION RT-BID [facility] Last Admin: 01/14/23 20:51 Dose: 20 mcg Furosemide (Furosemide 10 Mg/Ml 2 Ml Vial) 20 mg IV DAILY [facility] Last Admin: 01/14/23 08:10 Dose: 20 mg Heparin Sodium (Porcine) (Heparin Sodium,Porcine/Pf 5,000 Unit/0.5 Ml Syringe) 5,000 unit SQ Q12HR [facility] Last Admin: 01/14/23 20:53 Dose: 5,000 unit Sodium Chloride (Saline 0.9%) 1,000 mls @ 20 mls/hr IV .Q24H [facility] Last Admin: 01/14/23 19:44 Dose: Not Given Propofol 1,000 mg/ IV Solution 100 mls @ 10.452 mls/hr IV .Q9H35M [facility]; Protocol Last Admin: 01/15/23 02:30 Dose: 50 mcg/kg/min, 26.13 mls/hr Norepinephrine Bitartrate 4 mg (/ Sodium Chloride) 254 mls @ 9.956 mls/hr IV .Q24H [facility]; Protocol Last Admin: 01/14/23 11:11 Dose: Not Given Fentanyl Citrate 1,000 mcg/ (Sodium Chloride) 100 mls @ 8.8 mls/hr IV .[id number] [facility] Last Admin: 01/15/23 01:23 Dose: 1 mcg/kg/hr, 8.8 mls/hr Insulin Aspart (Insulin Aspart (Novolog) 100 Unit/Ml Vial) 0 unit SQ Q4H [facility]; Protocol Last Admin: 01/15/23 00:19 Dose: 4 unit Insulin Aspart (Insulin Aspart (Novolog) 100 Unit/Ml Vial) 5 unit SQ Q4H [facility] Last Admin: 01/15/23 00:20 Dose: 5 unit Insulin Detemir (Insulin Detemir (Levemir) 100 Unit/Ml Syr) 20 unit SQ BID@0700,2100 [facility] Last Admin: 01/14/23 20:45 Dose: 20 unit Lactulose (Lactulose 20 Gm/30 Ml Cup) 20 gm PO BID [facility] Last Admin: 01/14/23 20:44 Dose: 20 gm Methylprednisolone Sodium Succinate (Methylprednisolone Sod Succi 125 Mg/2 Ml Vial) 60 mg IV Q6HR [facility] Last Admin: 01/15/23 00:19 Dose: 60 mg Miscellaneous Information (Potassium Replacement Protocol 1 Each Misc) 1 each MISCELLANE DAILY PRN; Protocol PRN Reason: Per Protocol Miscellaneous Information (Magnesium Replacement Protocol 1 Each Misc) 1 each MISCELLANE DAILY PRN; Protocol PRN Reason: Per Protocol Montelukast Sodium (Montelukast 10 Mg Tab) 10 mg PO HS [facility] Last Admin: 01/14/23 20:44 Dose: 10 mg Naloxone HCl (Naloxone 0.4 Mg/Ml 1 Ml Vial) 0.2 mg IV Q2M PRN PRN Reason: Opioid Reversal Duoneb ([id number] (/Ipratropium0.5mg)) 1 each INHALATION RT-QID [facility] Last Admin: 01/09/23 16:12 Dose: 1 each Pantoprazole Sodium (Pantoprazole 40 Mg/10 Ml Vial) 40 mg IVP BID [facility] Last Admin: 01/14/23 20:44 Dose: 40 mg Ropinirole HCl (Ropinirole Hcl 4 Mg Tablet) 4 mg PO HS [facility] Last Admin: 01/14/23 20:46 Dose: 4 mg Theophylline (Theophylline 24 Hour 400 Mg Cap.Er.24h) 400 mg PO DAILY@0600 [facility] Last Admin: 01/14/23 00:31 Dose: Not Given Tobramycin/Dexamethasone (Tobra-Dexamet 0.3-0.1% Ophth Drops 2.5 Ml Btl) 2 drops RIGHT EYE Q4HR [facility] Last Admin: 01/15/23 00:21 Dose: 2 drops Verapamil HCl (Verapamil 40 Mg Tab) 40 mg PO TID [facility] Last Admin: 01/14/23 20:46 Dose: 40 mg Physical exam : GENERAL: The patient is on mechanical vent with an FI02 of 40% and peep is 5. Sedated. Well developed, well nourished. obese HEENT: Pupils are round and equally reacting to light. EOMI. No scleral icterus. No conjunctival pallor. Normocephalic, atraumatic. No pharyngeal erythema. No thyromegaly. CARDIOVASCULAR: S1 and S2 muffled PULMONARY: diminished breath sounds bilaterally with course rhonchi wheezes, and faint crackles noted at the bases ABDOMEN: Soft, nontender, obese. nondistended, normoactive bowel sounds. No palpable organomegaly. MUSCULOSKELETAL: No joint swelling or deformity. EXTREMITIES: No cyanosis, clubbing, or pedal edema. NEUROLOGICAL: unable to assess, on sedation of propofol SKIN: No rashes. no petechiae. Assessment: Acute COPD exacerbation Acute on chronic hypoxic respiratory failure patient is normally at home on 3 L nasal cannula, now requriing mechanical ventilation on 01/09/2023 Acute respiratory acidosis Steroid-induced hyperglycemia Altered mental status possibly secondary to C02 narcosis sepsis, doubt septic shock, sepsis mostly due to hypovolemia and hypotension, requiring pressor support, now off pressor support Acute on chronic hypercapnic respiratory failure Chronic leukocytosis History of COVID-19 pneumonia Benign essential hypertension History of rheumatoid osteoarthritis Chronic back pain Former smoker Full code Plan: Recommend to continue with current medications and Patient continues on mechanical vent with an FI02 of 40% and peep of 5 and being closely monitored in the ICU. Continued on IV steroids and breathing inhalational treatments. Cultures have been negative and cefepime discontinued being monitored closely off antibiotics recommend monitoring blood sugars before meals at bedtime and continuing with sliding scale and long-acting. Sugars have been elevated and will add additional insulins Currently undergoing sedation trials to monitor mental status with no plans for weaning at this time. Per nursing staff patient does follow commands off sedation Patient became extremely agitated yesterday requiring fentanyl and patient is continued on propofol we'll slowly titrate and remains off pressor support. Patient underwent a CPAP trial and did not do well and will be continuing on daily weaning trials and if no improvement next week may require tracheostomy and PEG tube placement. Recommend chest x-ray in the a.m. Family would like to decide further discuss with pulmonary before giving consent for PEG and trach. Gen. surgery has been consulted and following and awaiting family decision Due to multiple complex medical issues, overall prognosis is extremely poor and guarded The impression and plan of care has been dictated as a scribe by Teresa Portillo, Nurse Practitioner as directed. Dr. Joey MD I have performed a history and examination and MDM of this patient, discussed the same with the dictator, and will be documented as a scribe. Based on total visit time, I have performed more than 50% of the visit. Objective - Vital Signs Vital signs: Vital Signs Temp 98.5 F 01/14/23 08:00 Pulse 63 01/14/23 11:00 Resp 16 01/14/23 10:00 BP 147/86 01/13/23 09:03 Pulse Ox 91 L 01/14/23 10:00 FiO2 40 01/14/23 10:28 Intake & Output 01/13/23 01/14/23 01/14/23 18:59 06:59 18:59 Intake Total 910.751 818.957 193.377 Output Total 815 440 390 Balance 95.751 378.957 -196.623 Weight 90 kg Intake: IV 276 299 49 ARTERIAL LINE. 36 39 9 Sodium Chloride 0.9% 1, 240 260 40 000 ml @ 20 mls/hr IV . Q24H [facility] Rx#:[id number] Intake, IV Titration 214.751 104.957 39.377 Amount Sodium Chloride 0.9% 80 80.52 ml @ 0.5 MCG/KG/HR 4.4 mls/hr IV .Q44H11R [facility] with fentaNYL (PF) 1,000 mcg Rx#:[id number] propofoL 1,000 mg In 134.231 104.957 39.377 Empty Bag 1 bag @ 20 MCG/ KG/MIN 10.452 mls/hr IV . Q9H35M [facility] Rx#:[id number] Tube Feeding 300 325 75 Other 120 90 30 Output: Urine 815 440 390 Other: Voiding Method Indwelling Catheter Indwelling Catheter Indwelling Catheter ABP, PAP, CO, CI - Last Documented Arterial Blood Pressure 142/51 - Labs CBC & Chem 7: 01/14/23 05:00 01/14/23 05:00 Labs: Abnormal Lab Results - Last 24 Hours (Table) 01/13/23 01/13/23 01/13/23 Range/Units 11:45 18:03 23:03 RBC (3.80-5.40) m/uL Hgb (11.4-16.0) gm/dL ABG pCO2 (35-45) mmHg ABG pO2 (83-108) mmHg ABG HCO3 (21-25) mmol/L ABG Total CO2 (19-24) mmol/L ABG O2 Saturation (94-97) % Carbon Dioxide (22-30) mmol/L BUN (7-17) mg/dL Glucose (74-99) mg/dL POC Glucose (mg/dL) 246 H 264 H 213 H (70-110) mg/dL Calcium (8.4-10.2) mg/dL 01/14/23 01/14/23 01/14/23 Range/Units 05:00 05:00 05:10 RBC 3.47 L (3.80-5.40) m/uL Hgb 11.1 L (11.4-16.0) gm/dL ABG pCO2 58 H (35-45) mmHg ABG pO2 69 L (83-108) mmHg ABG HCO3 39 H (21-25) mmol/L ABG Total CO2 40 H (19-24) mmol/L ABG O2 Saturation 93.7 L (94-97) % Carbon Dioxide 38 H (22-30) mmol/L BUN 38 H (7-17) mg/dL Glucose 220 H (74-99) mg/dL POC Glucose (mg/dL) (70-110) mg/dL Calcium 8.3 L (8.4-10.2) mg/dL 01/14/23 Range/Units 05:13 RBC (3.80-5.40) m/uL Hgb (11.4-16.0) gm/dL ABG pCO2 (35-45) mmHg ABG pO2 (83-108) mmHg ABG HCO3 (21-25) mmol/L ABG Total CO2 (19-24) mmol/L ABG O2 Saturation (94-97) % Carbon Dioxide (22-30) mmol/L BUN (7-17) mg/dL Glucose (74-99) mg/dL POC Glucose (mg/dL) 218 H (70-110) mg/dL Calcium (8.4-10.2) mg/dL Microbiology - Last 24 Hours (Table) 01/09/23 12:30 Blood Culture - Preliminary Blood No Growth after 96 hours 01/09/23 12:43 Blood Culture - Preliminary Blood No Growth after 96 hours
[2023-01-15] MEDS: THEOPHYLLINE 24 HOUR 400 MG CAP.ER.24H PO SCH (03:49)
[2023-01-15] MEDS: DULoxetine HCL 30 MG CAPSULE.DR PO SCH (03:49)
[2023-01-15 03:50] LABS: Glucose,Whole Blood 153 mg/dL (70-110)
[2023-01-15 05:30] LABS: ABG Base Excess 14.7 mmol/L; ABG HCO3 39 mmol/L (21-25); ABG PCO2 56 mmHg (35-45); ABG PH 7.45 (7.35-7.45); ABG PO2 78 mmHg (83-108); ABG TCO2 41 mmol/L (19-24); Allen Test Performed? Yes
[2023-01-15 05:58] LABS: HCT 34.1 % (34.0-46.0); HGB 11.2 gm/dL (11.4-16.0); MCH 32.1 pg (25.0-35.0); MCHC 32.8 g/dL (31.0-37.0); Mean Platelet Volume 9.6; Platelet Count 194 k/uL (150-450); RBC 3.47 m/uL (3.80-5.40); RDW 15.3 % (11.5-15.5); WBC 10.9 k/uL (3.8-10.6)
[2023-01-15] MEDS: INSULIN DETEMIR (LEVEMIR) 100 UNIT/ML SYR SQ SCH ×2 (06:36→20:31)
[2023-01-15] MEDS: carvediloL 12.5 MG TAB PO SCH ×2 (06:36→18:06)
[2023-01-15 06:50] LABS: African American GFR (CKD) >90 (>60 ml/min/1.73 sqM); Blood Urea Nitrogen 40 mg/dL (7-17); Calcium 8.1 mg/dL (8.4-10.2); Chloride 99 mmol/L (98-107); Glucose 132 mg/dL (74-99); Non-African American GFR(CKD) >90 (>60 ml/min/1.73 sqM); Potassium 4.5 mmol/L (3.5-5.1); Sodium 137 mmol/L (137-145)
[2023-01-15 06:57] LABS: Anion Gap 1 mmol/L
[2023-01-15 06:58] LABS: Carbon Dioxide 37 mmol/L (22-30)
[2023-01-15] MEDS: FORMOTEROL FUMARATE 20 MCG/2 ML NEBU INHALATION SCH ×2 (07:42→19:41)
[2023-01-15] MEDS: BUDESONIDE 1 MG/2 ML NEBU INHALATION SCH ×2 (07:42→19:41)
--- NOTE | 2023-01-15 08:14 | XR ---
EXAMINATION TYPE: XR chest 1V portable DATE OF EXAM: 01/15/2023 Comparison: 01/14/2023 Clinical History: 67-year-old female Tube placement Findings: ET tube and NG tube are satisfactory. Left PICC tip at the mid SVC level. Heart mildly enlarged. Estela ent rotation towards the right ultrasound and normal cardiac and mediastinal contours. Mild hyperinfl ation. Interstitial densities similar. Hazy opacity at the right base also similar. Impression: Rotated exam. Mild cardiomegaly and similar interstitial change, possible mild pulmonary vascular con gestion. Similar hazy right basilar opacity could represent a small effusion or atelectasis and/or co nsolidation.
[2023-01-15] MEDS: CHLORHEXIDINE GLUCONATE 15 ML CUP MUCOUS MEM SCH ×2 (10:14→20:30)
[2023-01-15] MEDS: PANTOPRAZOLE 40 MG/10 ML VIAL IVP SCH ×2 (10:15→20:31)
[2023-01-15] MEDS: VERAPAMIL 40 MG TAB PO SCH ×3 (10:16→20:32)
[2023-01-15] MEDS: LACTULOSE 20 GM/30 ML CUP PO SCH ×2 (10:16→20:30)
[2023-01-15] MEDS: HEPARIN SODIUM,PORCINE/PF 5,000 UNIT/0.5 ML SYRINGE SQ SCH ×2 (10:16→20:30)
[2023-01-15] MEDS: FUROSEMIDE 10 MG/ML 2 ML VIAL IV SCH (10:16)
--- NOTE | 2023-01-15 10:43 | P.PN ---
Subjective Progress Note Date: 01/15/23 Principal diagnosis: Respiratory failure. Reevaluated today on 01/11/2023, patient remains intubated and mechanically ventilated. She is on assist control rate of 16 tidal volume 450 FiO2 50% and PEEP of 5 ABG showed a pO2 of 95 pCO2 56 pH of 7.41, I cut down her FiO2 to 45%. Patient remains on propofol at 35 mcg/kg/m she is also on vitamin HP/enteral feeding at 30 mL per hour, and she is on IV fluid to KVO. Patient remains sedated, he is hemodynamically stable, not requiring any pressors. Remains on GI and DVT prophylaxis, antibiotics have been discontinued since all the cultures have been negative including blood cultures and sputum cultures so far. Patient was on cefepime which I will discontinue. Chest x-ray showed tiny right-sided pleural effusion and left pleural effusion with bibasilar atelectasis, no clear-cut evidence of pneumonia CBC is normal and basic metabolic is unremarkable Reevaluated today on 01/12/2023, patient remains in the ICU, intubated and mechanically ventilated. Patient is on assist control rate of 16 tidal volume 450 FiO2 45% and PEEP of 5 ABG showed a pO2 of 78 pCO2 of 50 pH of 7.47, FiO2 was cut down to 40%. Remains on propofol at 20 mcg/kg/m, not requiring any pressors, she is on vital HP/for enteral nutritional support. It is at 35 mL per hour. Patient is maintaining good urine output, she is on IV fluid at 75 mL per hour. Today the patient was given a short trial of pressure support of 12 and CPAP, did not do well, and she was moving very small tidal volumes and noted to be tachypneic on physical examination she did have scattered rhonchi and wheezes. Patient is obviously not ready for any weaning trials or extubation at this point. Chest x-ray continues to show small bilateral effusions with a right basilar atelectasis. Blood cultures have been negative and sputum cultures have been negative showing mostly normal respiratory patricia, has antibiotics have been discontinued. Patient remains mostly on bronchodilators, is also on GI and DVT prophylaxis Reevaluated today on 01/13/2023, patient remains in the ICU, intubated and mechanically ventilated. She is on assist control rate of 16 tidal volume 450 FiO2 40% and PEEP of 5 ABG showed a pO2 of 70 pCO2 52 pH of 7.47 hence no change was made in her ventilator settings. Patient remains on propofol at 20 mcg/kg/m IV fluid at KVO vital HP at 25 mL per hour not requiring any pressors. However the patient became extremely agitated yesterday in spite of maximal dose of propofol hence I started the patient on fentanyl at 0.5 mcg/kg per hour. And sh e remains on fentanyl propofol was cut down to 40 mics per kilo per minute. Chest x-ray is basically the same showing some bibasilar atelectasis especially at the right base. And small pleural effusions. WBC count is 7.1 hemoglobin 11.2 electrolytes are normal bicarb is 39, renal profile is normal blood sugar is 247 Reevaluated today on 01/14/2023, patient remains in the ICU, intubated and mech anically ventilated. She is on assist control rate of 16 tidal volume 450 FiO2 40% PEEP of 5 ABG showed a pO2 of 69 pCO2 58 pH of 7.43. Patient is still on propofol at 45 mcg/kg/m she is also on fentanyl 0.5 mics per kilo per hour receiving vital HP at 25 mL per hour. On lower doses of sedation, the patient seems to be appropriate according to the nurses, and follows simple instructions. However the patient continues to have significant abnormal lung findings with diffuse rhonchi and wheezes bilaterally, I feel the patient is not given be able to wean easily considering his severe underlying COPD, hence [facility] consulting Dr. Burgess for possible tracheostomy and PEG tube placement in the next 24-48 hours. In the meantime I will continue present supportive care measures. And continue present treatment plan. WBC count is 8.8 hemoglobin is 11.1. Basic metabolic profile is normal renal profile is normal, chest x-ray continues to show small bilateral pleural effusions and right lower lobe atelectasis, again strongly doubt pneumonia. Progress note dated 01/15/2023. 67-year-old female well-known to our service. She has a history of severe/end- stage oxygen-dependent COPD. She was admitted to the hospital on January 04 with respiratory failure and COPD exacerbation. She was intubated and mechanically ventilated on January 09. The patient currently is on volume assist control, rate 16, tidal volume 450, FiO2 40%, and PEEP of 5. Blood gases show pO2 78, pCO2 56, and a pH is 7.45. At 50 mcg/kg/m, and fentanyl at 1 mcg/kg/h. The patient's also getting saline at 10 mL an hour, and vital high protein at 25 mL an hour, which is goal. The patient will have a daily interruption of sedation today, on a pressure support of a CPAP of 5. The patient's peak airway pressures 43, and plateau pressure is 27. Such a large difference between the peak and plateau, the patient is likely not to be extubated today. White count 10.9, hemoglobin 11.2, hematocrit 34.1, with a normal platelet count. Sodium 137, potassium 4.5, chlorides 99, CO2 37, BUN 40, creatinine 0.65. Chest x-ray shows some cardiomegaly, and mild interstitial changes, possibly related to interstitial edema. Objective - Vital Signs Vital signs: Vital Signs Temp 97.8 F 01/15/23 09:00 Pulse 46 L 01/15/23 10:00 Resp 16 01/15/23 10:00 BP 147/86 01/13/23 09:03 Pulse Ox 93 L 01/15/23 10:00 FiO2 40 01/15/23 09:00 Intake & Output 01/14/23 01/15/23 01/15/23 18:59 06:59 18:59 Intake Total 871.187 860.14 282 Output Total 855 460 140 Balance 16.187 400.14 142 Weight 90.5 kg Intake: IV 166 143 52 ARTERIAL LINE. 36 33 12 Sodium Chloride 0.9% 1, 130 110 40 000 ml @ 20 mls/hr IV . Q24H LATESHA Rx#:[id number] Intake, IV Titration 315.187 352.14 100 Amount Sodium Chloride 0.9% 80 83.527 52.14 ml @ 1 MCG/KG/HR 8.8 mls/ hr IV .[id number] LATESHA with fentaNYL (PF) 1,000 mcg Rx#:[id number] propofoL 1,000 mg In 231.660 300 100 Empty Bag 1 bag @ 20 MCG/ KG/MIN 10.452 mls/hr IV . Q9H35M LATESHA Rx#:[id number] Tube Feeding 300 275 100 Other 90 90 30 Output: Urine 855 460 140 Other: Voiding Method Indwelling Catheter Indwelling Catheter ABP, PAP, CO, CI - Last Documented Arterial Blood Pressure 133/49 - Exam No acute distress, currently sedated, with an orally placed endotracheal tube. HEENT examination is grossly unremarkable. Neck supple. Full range of motion. No adenopathy thyromegaly or neck vein distention. Cardiovascular examination reveals regular rhythm rate. S1-S2 normal. No S3 or S4. No discernible murmur noted. Heart rate about 60 bpm. Heart sounds are distant. Lungs reveal expiratory rhonchi and wheezes. Breath sounds equal. Saturations are 93%. Abdomen soft with bowel sounds, and without masses or tenderness. Extremities are intact. No cyanosis clubbing or edema. Skin is without rash or lesion. Neurologic examination cannot be adequately assessed at this time. - Labs CBC & Chem 7: 01/15/23 05:36 01/15/23 05:36 Labs: Abnormal Lab Results - Last 24 Hours (Table) 01/14/23 01/14/23 01/14/23 Range/Units 12:02 16:09 19:47 WBC (3.8-10.6) k/uL RBC (3.80-5.40) m/uL Hgb (11.4-16.0) gm/dL ABG pCO2 (35-45) mmHg ABG pO2 (83-108) mmHg ABG HCO3 (21-25) mmol/L ABG Total CO2 (19-24) mmol/L Carbon Dioxide (22-30) mmol/L BUN (7-17) mg/dL Glucose (74-99) mg/dL POC Glucose (mg/dL) 184 H 193 H 174 H (70-110) mg/dL Calcium (8.4-10.2) mg/dL 01/14/23 01/15/23 01/15/23 Range/Units 23:15 03:49 05:25 WBC (3.8-10.6) k/uL RBC (3.80-5.40) m/uL Hgb (11.4-16.0) gm/dL ABG pCO2 56 H (35-45) mmHg ABG pO2 78 L (83-108) mmHg ABG HCO3 39 H (21-25) mmol/L ABG Total CO2 41 H (19-24) mmol/L Carbon Dioxide (22-30) mmol/L BUN (7-17) mg/dL Glucose (74-99) mg/dL POC Glucose (mg/dL) 222 H 153 H (70-110) mg/dL Calcium (8.4-10.2) mg/dL 01/15/23 01/15/23 Range/Units 05:36 05:36 WBC 10.9 H (3.8-10.6) k/uL RBC 3.47 L (3.80-5.40) m/uL Hgb 11.2 L (11.4-16.0) gm/dL ABG pCO2 (35-45) mmHg ABG pO2 (83-108) mmHg ABG HCO3 (21-25) mmol/L ABG Total CO2 (19-24) mmol/L Carbon Dioxide 37 H (22-30) mmol/L BUN 40 H (7-17) mg/dL Glucose 132 H (74-99) mg/dL POC Glucose (mg/dL) (70-110) mg/dL Calcium 8.1 L (8.4-10.2) mg/dL Microbiology - Last 24 Hours (Table) 01/09/23 12:30 Blood Culture - Preliminary Blood No Growth after 120 hours 01/09/23 12:43 Blood Culture - Preliminary Blood No Growth after 120 hours Assessment and Plan Assessment: Acute on chronic hypoxemic and hypercapnic respiratory failure, requiring intubation on 01/09/2023. Possible underlying sepsis, with hypotension. Severe end-stage COPD. Chronic hypercapnic respiratory failure. History of left upper lobe nodule. Previous history of coronavirus associated pneumonia. Benign essential hypertension. History of rheumatoid arthritis. Chronic back pain. Prior history of tobacco use. Cushingoid habitus, secondary to chronic steroids. Gen. medical debility. Plan: Plan dated 01/15/2023. Labs, x-rays, and medications are reviewed. The patient may not be weaned and mobile at this point, given the large difference between the peak airway pressure, and a plateau pressure. We will attempt a daily interruption of sedation, and a spontaneous breathing trial. Family wants to hold off on the tracheostomy and PEG tube at this time, to see if the patient is possibly able to come off the ventilator. Prognosis remains very guarded. We will continue with GI and DVT prophylaxis. We continue with tube feeds. Arterial blood gases are reasonable. Time with Patient: Greater than 30
--- NOTE | 2023-01-15 11:17 | P.PN ---
Subjective Progress Note Date: 01/15/23 CHIEF COMPLAINT: Respiratory failure, malnutrition HISTORY OF PRESENT ILLNESS: Patient is currently in the ICU intubated and on mechanical ventilation. She is undergoing a weaning trial today. Surgery is following in regards to possible tracheostomy and PEG tube placement. Afebrile. WBC 10.9 H 11.2 signs 137 potassium is 4.5 creatinine 0.65 albumin 3.4 PHYSICAL EXAM: VITAL SIGNS: Reviewed. GENERAL: Well-developed in no acute distress. ABDOMEN: Soft. Nondistended. Nontender. ASSESSMENT: 1. Respiratory failure 2. Moderate protein calorie malnutrition PLAN: -Continue to follow for possible tracheostomy and PEG tube placement Physician Wardrobe Custodian note has been reviewed by physician. Signing provider agrees with the documented findings, assessment, and plan of care. Objective - Vital Signs Vital signs: Vital Signs Temp 97.8 F 01/15/23 09:00 Pulse 46 L 01/15/23 10:00 Resp 16 01/15/23 10:00 BP 147/86 01/13/23 09:03 Pulse Ox 93 L 01/15/23 10:00 FiO2 40 01/15/23 09:00 Intake & Output 01/14/23 01/15/23 01/15/23 18:59 06:59 18:59 Intake Total 871.187 860.14 282 Output Total 855 460 140 Balance 16.187 400.14 142 Weight 90.5 kg 90.5 kg Intake: IV 166 143 52 ARTERIAL LINE. 36 33 12 Sodium Chloride 0.9% 1, 130 110 40 000 ml @ 20 mls/hr IV . Q24H LATESHA Rx#:[id number] Intake, IV Titration 315.187 352.14 100 Amount Sodium Chloride 0.9% 80 83.527 52.14 ml @ 1 MCG/KG/HR 8.8 mls/ hr IV .[id number] LATESHA with fentaNYL (PF) 1,000 mcg Rx#:[id number] propofoL 1,000 mg In 231.660 300 100 Empty Bag 1 bag @ 20 MCG/ KG/MIN 10.452 mls/hr IV . Q9H35M LATESHA Rx#:[id number] Tube Feeding 300 275 100 Other 90 90 30 Output: Urine 855 460 140 Other: Voiding Method Indwelling Catheter Indwelling Catheter ABP, PAP, CO, CI - Last Documented Arterial Blood Pressure 133/49 - Labs CBC & Chem 7: 01/15/23 05:36 01/15/23 05:36 Labs: Abnormal Lab Results - Last 24 Hours (Table) 01/14/23 01/14/23 01/14/23 Range/Units 12:02 16:09 19:47 WBC (3.8-10.6) k/uL RBC (3.80-5.40) m/uL Hgb (11.4-16.0) gm/dL ABG pCO2 (35-45) mmHg ABG pO2 (83-108) mmHg ABG HCO3 (21-25) mmol/L ABG Total CO2 (19-24) mmol/L Carbon Dioxide (22-30) mmol/L BUN (7-17) mg/dL Glucose (74-99) mg/dL POC Glucose (mg/dL) 184 H 193 H 174 H (70-110) mg/dL Calcium (8.4-10.2) mg/dL 01/14/23 01/15/23 01/15/23 Range/Units 23:15 03:49 05:25 WBC (3.8-10.6) k/uL RBC (3.80-5.40) m/uL Hgb (11.4-16.0) gm/dL ABG pCO2 56 H (35-45) mmHg ABG pO2 78 L (83-108) mmHg ABG HCO3 39 H (21-25) mmol/L ABG Total CO2 41 H (19-24) mmol/L Carbon Dioxide (22-30) mmol/L BUN (7-17) mg/dL Glucose (74-99) mg/dL POC Glucose (mg/dL) 222 H 153 H (70-110) mg/dL Calcium (8.4-10.2) mg/dL 01/15/23 01/15/23 Range/Units 05:36 05:36 WBC 10.9 H (3.8-10.6) k/uL RBC 3.47 L (3.80-5.40) m/uL Hgb 11.2 L (11.4-16.0) gm/dL ABG pCO2 (35-45) mmHg ABG pO2 (83-108) mmHg ABG HCO3 (21-25) mmol/L ABG Total CO2 (19-24) mmol/L Carbon Dioxide 37 H (22-30) mmol/L BUN 40 H (7-17) mg/dL Glucose 132 H (74-99) mg/dL POC Glucose (mg/dL) (70-110) mg/dL Calcium 8.1 L (8.4-10.2) mg/dL Microbiology - Last 24 Hours (Table) 01/09/23 12:30 Blood Culture - Preliminary Blood No Growth after 120 hours 01/09/23 12:43 Blood Culture - Preliminary Blood No Growth after 120 hours
[2023-01-15 11:44] LABS: Glucose,Whole Blood 132 mg/dL (70-110)
[2023-01-15] MEDS ORDERED: IPRATROPIUM-ALBUTEROL 3 ML NEB INHALATION SCH (12:00)
[2023-01-15] MEDS: IPRATROPIUM 0.5 MG/2.5 ML NEBU INHALATION SCH ×3 (12:08→19:41)
[2023-01-15] MEDS: NOREPINEPHRINE 4 MG in SODIUM CHLORIDE 0.9% 250 ML IV SCH (12:21)
[2023-01-15 12:36] LABS: Glucose,Whole Blood 147 mg/dL (70-110)
[2023-01-15] MEDS: CLEVIDIPINE BUTYRATE 25 MG in EMPTY BAG 1 BAG IV SCH (13:57)
[2023-01-15 16:14] LABS: Glucose,Whole Blood 106 mg/dL (70-110)
[2023-01-15 20:25] LABS: Glucose,Whole Blood 168 mg/dL (70-110)
[2023-01-15] MEDS: rOPINIRole HCL 4 MG TABLET PO SCH (20:32)
[2023-01-15] MEDS: MONTELUKAST 10 MG TAB PO SCH (20:32)
[2023-01-15 23:42] LABS: Glucose,Whole Blood 137 mg/dL (70-110)
[2023-01-15] MEDS: SODIUM CHLORIDE 0.9% 1,000 ML IV SCH (23:42)
[2023-01-16] MEDS: TOBRA-DEXAMET 0.3-0.1% OPHTH DROPS 2.5 ML BTL RIGHT EYE SCH ×7 (00:15→23:46)
[2023-01-16] MEDS: SODIUM CHLORIDE 0.9% 80 ML with fentaNYL (PF) 1,000 MCG IV SCH ×8 (00:16→18:45)
[2023-01-16] MEDS: ALBUTEROL NEBULIZED 2.5 MG/3 ML INHALATION SCH ×6 (01:04→20:30)
[2023-01-16] MEDS: IPRATROPIUM 0.5 MG/2.5 ML NEBU INHALATION SCH ×6 (01:04→20:30)
--- NOTE | 2023-01-16 03:18 | P.PN ---
Subjective Progress Note Date: 01/15/23 This is a pleasant 67 years old female with past medical history of advanced COPD advanced COPD on home oxygen dependent on 3-4 L at all times, obstructive sleep apnea CPAP dependent nightly, diastolic CHF hypertension, iron deficiency anemia, rheumatoid arthritis, and chronic back pain who presented to the ER because of worsening shortness of breath for a few days duration Patient currently is lying in bed in the emergency room 6, with BiPAP machine on with parameters of 15/6, FiO2 of 40%. Patient is tachypneic breathing with direct about 34-37. Patient looks tired and she could not provide much information, she cannot talk but she is awake and oriented. She follows commands. She has minimal chest movement with expiratory wheezing. She denies any pain, no chest pain she denies any GI or urinary symptoms. She moves all extremities symmetrically. vitals reviewed and patient is afebrile. Mild Leukocytosis of 12.2, Mild Thrombocytopenia 127. Hemoglobin Normal. INR 0.9. VBG Showing High PCO2 of 84, Low pH of 7.3. BNP showing high carbon dioxide at 49, creatinine normal. Liver enzymes not elevated. Troponin negative. ProBNP is 301. Glucose 128. Chest x-ray reviewed by myself showing enlarged heart with COPD changes. Minimal chest congestion. Patient started on dexamethasone, albuterol. EKG showing normal sinus rhythm at [address]-T changes. 01/05/2023 Patient remains in the ICU, she required BiPAP all the ninth yesterday except for one hour she got some rest. Today patient showed significant improvement, she is more alert awake, pleasant. Her mentation is back to normal. Her breathing is also improving with decrease respiratory rate into 18-20, per to more than 30 yesterday. Repeat chest x-ray looks similar findings to yesterday with no obvious infiltrate or consolidation. The heart is mildly enlarged, just x-ray reviewed by myself. Other vitals and labs looks stable. pro-calcitonin is slightly elevated at 0.20 She is currently receiving IV Solu-Medrol 60 mg as well as broad-spectrum antibiotics with vancomycin and cefepime Until doxycycline. Also she is on IV Lasix daily. 01/06/2023 pt today is significantly improved , she can talk easily off the bipap machine in the moring although she was using all night, she requires few liter of oxgyen per min like 4 only Because of significant improvement and she was moved out of the ICU Her treatment was the risk related, antibiotics vancomycin and doxycycline were stopped and Cefepime. IV Lasix Switched to Oral Dose of 40 Mg Daily. While She Kept on High Dose of IV Solu-Medrol 60 Mg. 01/07/2023 Patient today having some more breathing difficulty compared to yesterday however she still looks greatly although she still have some wheezing. She is saturating 90s on 4 L oxygen via nasal cannula, no much of accessory muscles and she can talk more freely. Her chest x-ray today showing worse than admission when I reviewed it but most likely this is because of the technique. She remains on IV Solu-Medrol, 60 mg. Cefepime, oral Lasix 40 mg daily. Patient did not need BiPAP last night. Patient wants to keep the [place] cath in Place because it's harder for her to get up 01/08/2023 Patient seen and evaluated in follow-up today with pulmonary following closely. Patient is continued on 4 L via nasal cannula as well as BiPAP. Patient continues on oral steroids along with inhalers and cefepime. Patient was started on cefepime empirically for concerns of pneumonia. Patient continues to be extremely dyspneic with minimal exertion and would recommend weaning FiO2 as tolerated. Patient normally wears a CPAP and has one for the outpatient setting although would recommend continuing with BiPAP especially at night from 8 PM to 6 AM. Continue BiPAP as needed as well. Patient extremely weak and has been progressively getting more weak with each admission. Patient has been hospitalized very frequently most recently and clinically very slow to improve. Case management following as there will be plans to return to rehab or possible inpatient rehab. Will await PT/OT therapy evaluation. Patient is currently afebrile denies chest pain or palpitations. Patient reports she is tolerating diet with no reports of nausea or vomiting noted. 01/09/2023 Patient is seen and evaluated in follow up today and per nursing staff was found this morning with her oxygen and BIpap mask off and O2 saturations in the 60's. Patient was placed back on bipap and numbers improved slightly although continued to be restless, combative, and not following commands. Ordered ativan to calm and was not effective. Patient extremely dyspneic and tachypneic and working with accessory muscle use. Luckily, pulmonary was rounding on the unit and ordered transfer to ICU for possible intubation and close monitoring. Patient is afebrile and continued on cefepime empirically and sputum cultures ordered. continued on breathing treatments as well as oral prednisone. 01/10/2023 Patient is seen in follow up today and continues to be in the ICU in critical condition. Patient continues on mechanical ventilation with an FI02 of 50% and peep is 5. Patient was off pressor support and off propofol and not tolerating with no plans for weaning off the vent at this time. Peg and tracheostomy is being considered in the next few days possibly. Patient overall prognosis is extremely poor and guarded at this time. PICC line is being ordered and pending. Patient is also continued on empiric antibiotics and awaiting cultures. Patient also placed back on IV steroids per pulmonary. Patient is afebrile. 01/11/2023 Patient is seen and evaluated in follow-up today continues to be in the MICU with pulmonary assistant center director following closely. Patient remains on mechanical ventilation working on weaning FiO2 as tolerated. FiO2 is currently at 45% with a PEEP of 5 and undergoing sedation holidays with no plans of weaning at this time. Patient was continued on Cefepime although cultures are negative and blood cultures remain negative will discontinue cefepime. Patient is continued on tube feeds and blood sugar slightly elevated will continue sliding scale and add low-dose long-acting twice daily and continue to monitor Accu-Cheks before meals and at bedtime. Recommend follow-up chest x-ray and labs in the a.m. 01/12/2023 Patient is seen and evaluated continues to be the ICU with sister at the bedside. Patient remains on mechanical ventilation with no plans of weaning at this time. FiO2 being adjusted down to 40% with a PEEP of 5 and patient is tolerating well. Patient is off pressor support as well as antibiotics and being closely monitored. Patient's blood sugars elevated and have added long- acting and will increase in continue to monitor closely. Chest x-ray today shows persistent bilateral effusions right greater than left with patchy densities and atelectasis. Patient is undergoing sedation holidays to monitor mental status. Sister at the bedside and discussed with Juventino and address their questions and concerns to the? Ability. Patient remains afebrile. Patient is continued on tube feeding and tolerating. Overall prognosis remains extremely g uarded. 01/13/2023 Patient is evaluated today continues to be in the ICU and undergoing weaning tri als of sedation and had CPAP trial yesterday and did not tolerate well became increasingly agitated on maximum propofol requiring sentinel. Propofol being titrated down. Patient continues off pressor support. Patient is maintained of IV antibiotics and is continued on IV steroids along with breathing treatments. Patient being started on lactulose unknown last bowel movement. Recommend daily chest x-rays and follow-up labs. Recommend to replace electrolytes per protocol. Blood sugars remain elevated and tolerating tube feeds and will continue sliding scale and increased long-acting to 20 units twice daily. Recommend Accu-Cheks before meals and at bedtime. 01/14/2023 Patient is seen in follow-up continues to be in the ICU maintained on mechanical ventilation with an FiO2 of 40% and PEEP is 5. No plans for trials of weaning today other than mild sedation holiday to assess mentation. Per nursing staff patient is following commands off sedation although does get quite restless and hypertensive and symptomatic no plans for sedation holiday today. Patient is continued on propofol and fentanyl and will continue. Patient is monitored off IV antibiotics and cultures have remained negative. Patient's blood sugars elevated and will add increased insulin covered and continue with current regimen. Pulmonary has consulted general surgery for possible tracheostomy and PEG tube placement and awaiting family decision and consent. 01/15/2023 The patient was seen and evaluated continues to be in the ICU under critical condition. Patient remains on mechanical ventilation with an FiO2 of 40% and PEEP is 5. Working on weaning trials in terms of sedation to monitor mentation with no plans of weaning from mechanical plan at this time. There were plans for possible PEG and trach this morning although family would like a few more days to see if patient is able to wean off the vent. Per pulmonary will attempt CPAP trials and assess for weaning. Chest x-ray today shows some congestion with no significant difference from previous. Patient is continued on IV Lasix daily along with IV steroids, propofol and fentanyl currently off antibiotic and pressor support. Prognosis remains extremely critical and guarded at this time. Review of systems: unable to obtain as patient is on mechanical vent and sedated All medications have been reviewed Active Medications Acetaminophen (Acetaminophen Tab 500 Mg Tab) 1,000 mg PO Q6HR PRN PRN Reason: Fever and/ or Pain Last Admin: 01/12/23 22:28 Dose: 1,000 mg Albuterol Sulfate (Albuterol Nebulized 2.5 Mg/3 Ml) 2.5 mg INHALATION RT-Q4H [facility] Last Admin: 01/16/23 01:04 Dose: 2.5 mg Artificial Tears (Artificial Tears-Hypromellose Drops 15 Ml Btl) 2 drops BOTH EYES QID PRN PRN Reason: Dry Eye(s) Budesonide (Budesonide 1 Mg/2 Ml Nebu) 1 mg INHALATION RT-BID [facility] Last Admin: 01/15/23 19:41 Dose: 1 mg Carvedilol (Carvedilol 12.5 Mg Tab) 12.5 mg PO BID-W/MEALS [facility] Last Admin: 01/15/23 18:06 Dose: 12.5 mg Chlorhexidine Gluconate (Chlorhexidine Gluconate 15 Ml Cup) 15 ml MUCOUS MEM BID [facility] Last Admin: 01/15/23 20:30 Dose: 15 ml Dextrose/Water (Dextrose 50% Syringe 50 Ml) 25 ml IVP PER PROTOCOL PRN; Protocol PRN Reason: Hypoglycemia Dextrose/Water (Dextrose 50% Syringe 50 Ml) 50 ml IVP PER PROTOCOL PRN; Protocol PRN Reason: Hypoglycemia Duloxetine HCl (Duloxetine Hcl 30 Mg Capsule.Dr) 30 mg PO DAILY@0600 [facility] Last Admin: 01/15/23 03:49 Dose: Not Given Formoterol Fumarate (Formoterol Fumarate 20 Mcg/2 Ml Nebu) 20 mcg INHALATION RT-BID [facility] Last Admin: 01/15/23 19:41 Dose: 20 mcg Furosemide (Furosemide 10 Mg/Ml 2 Ml Vial) 20 mg IV DAILY [facility] Last Admin: 01/15/23 10:16 Dose: 20 mg Heparin Sodium (Porcine) (Heparin Sodium,Porcine/Pf 5,000 Unit/0.5 Ml Syringe) 5,000 unit SQ Q12HR [facility] Last Admin: 01/15/23 20:30 Dose: 5,000 unit Sodium Chloride (Saline 0.9%) 1,000 mls @ 20 mls/hr IV .Q24H [facility] Last Admin: 01/15/23 23:42 Dose: Not Given Propofol 1,000 mg/ IV Solution 100 mls @ 10.452 mls/hr IV .Q9H35M [facility]; Protocol Last Admin: 01/16/23 00:25 Dose: 25 mcg/kg/min, 13.065 mls/hr Norepinephrine Bitartrate 4 mg (/ Sodium Chloride) 254 mls @ 9.956 mls/hr IV .Q24H [facility]; Protocol Last Admin: 01/15/23 12:21 Dose: Not Given Fentanyl Citrate 1,000 mcg/ (Sodium Chloride) 100 mls @ 8.8 mls/hr IV .Q10E50A [facility] Last Admin: 01/16/23 00:16 Dose: 1 mcg/kg/hr, 8.8 mls/hr Clevidipine 25 mg/ IV Solution 50 mls @ 2 mls/hr IV .Q24H [facility]; Protocol Last Titration: 01/15/23 14:05 Dose: 8 mg/hr, 16 mls/hr Insulin Aspart (Insulin Aspart (Novolog) 100 Unit/Ml Vial) 0 unit SQ Q4H [facility]; Protocol Last Admin: 01/15/23 23:42 Dose: Not Given Insulin Aspart (Insulin Aspart (Novolog) 100 Unit/Ml Vial) 5 unit SQ Q4H [facility] Last Admin: 01/15/23 23:47 Dose: 5 unit Insulin Detemir (Insulin Detemir (Levemir) 100 Unit/Ml Syr) 20 unit SQ BID@070 0,2100 [facility] Last Admin: 01/15/23 20:31 Dose: 20 unit Ipratropium [place] (Ipratropium 0.5 Mg/2.5 Ml Nebu) 0.5 mg INHALATION RT-Q4H [facility] Last Admin: 01/16/23 01:04 Dose: 0.5 mg Lactulose (Lactulose 20 Gm/30 Ml Cup) 20 gm PO BID [facility] Last Admin: 01/15/23 20:30 Dose: 20 gm Methylprednisolone Sodium Succinate (Methylprednisolone Sod Succi 125 Mg/2 Ml Vial) 60 mg IV Q6HR [facility] Last Admin: 01/15/23 23:46 Dose: 60 mg Miscellaneous Information (Potassium Replacement Protocol 1 Each Misc) 1 each MISCELLANE DAILY PRN; Protocol PRN Reason: Per Protocol Miscellaneous Information (Magnesium Replacement Protocol 1 Each Misc) 1 each MISCELLANE DAILY PRN; Protocol PRN Reason: Per Protocol Montelukast Sodium (Montelukast 10 Mg Tab) 10 mg PO HS [facility] Last Admin: 01/15/23 20:32 Dose: 10 mg Naloxone HCl (Naloxone 0.4 Mg/Ml 1 Ml Vial) 0.2 mg IV Q2M PRN PRN Reason: Opioid Reversal Duoneb (Agniffill8st (/Ipratropium0.5mg)) 1 each INHALATION RT-QID [facility] Last Admin: 01/09/23 16:12 Dose: 1 each Pantoprazole Sodium (Pantoprazole 40 Mg/10 Ml Vial) 40 mg IVP BID [facility] Last Admin: 01/15/23 20:31 Dose: 40 mg Ropinirole HCl (Ropinirole Hcl 4 Mg Tablet) 4 mg PO HS [facility] Last Admin: 01/15/23 20:32 Dose: 4 mg Theophylline (Theophylline 24 Hour 400 Mg Cap.Er.24h) 400 mg PO DAILY@0600 [facility] Last Admin: 01/15/23 03:49 Dose: Not Given Tobramycin/Dexamethasone (Tobra-Dexamet 0.3-0.1% Ophth Drops 2.5 Ml Btl) 2 drops RIGHT EYE Q4HR [facility] Last Admin: 01/16/23 00:15 Dose: 2 drops Verapamil HCl (Verapamil 40 Mg Tab) 40 mg PO TID [facility] Last Admin: 01/15/23 20:32 Dose: 40 mg Physical exam : GENERAL: The patient is on mechanical vent with an FI02 of 40% and peep is 5. Sedated. Well developed, well nourished. obese HEENT: Pupils are round and equally reacting to light. EOMI. No scleral icterus. No conjunctival pallor. Normocephalic, atraumatic. No pharyngeal erythema. No thyromegaly. CARDIOVASCULAR: S1 and S2 muffled PULMONARY: diminished breath sounds bilaterally with course rhonchi wheezes, and faint crackles noted at the bases ABDOMEN: Soft, nontender, obese. nondistended, normoactive bowel sounds. No palpable organomegaly. MUSCULOSKELETAL: No joint swelling or deformity. EXTREMITIES: No cyanosis, clubbing, or pedal edema. NEUROLOGICAL: unable to assess, on sedation of propofol and fentanyl SKIN: No rashes. no petechiae. Assessment: Acute COPD exacerbation Acute on chronic hypoxic respiratory failure patient is normally at home on 3 L nasal cannula, now requriing mechanical ventilation on 01/09/2023 Acute respiratory acidosis Steroid-induced hyperglycemia Altered mental status possibly secondary to C02 narcosis sepsis, doubt septic shock, sepsis mostly due to hypovolemia and hypotension, requiring pressor support, now off pressor support Acute on chronic hypercapnic respiratory failure Chronic leukocytosis History of COVID-19 pneumonia Benign essential hypertension History of rheumatoid osteoarthritis Chronic back pain Former smoker Full code Plan: Recommend to continue with current medications and Patient continues on mechanical vent with an FI02 of 40% and peep of 5 and being closely monitored in the ICU. Continued on IV steroids and breathing inhalational treatments. recommend monitoring blood sugars before meals at bedtime and continuing with sliding scale and long-acting. Currently undergoing sedation trials to monitor mental status with no plans for weaning at this time. Per nursing staff patient does follow commands off sedation Pulmonary following closely and will attempt weaning trials in CPAP mode for further evaluation with no plans for weaning at this time. General surgery was consulted for PEG and trach although family would like to monitor the patient over the next few days before making that ultimate decision Recommend chest x-ray in the a.m. Due to multiple complex medical issues, overall prognosis is extremely poor and guarded The impression and plan of care has been dictated by Teresa Portillo, Nurse Practitioner as directed. Dr. Durga MD I have performed a history and examination and MDM of this patient, discussed the same with the dictator, and agree with the dictator's assessment and plan as written ,documented as a scribe. Based on total visit time, I have performed more than 50% of the visit. Objective - Vital Signs Vital signs: Vital Signs Temp 97.8 F 01/15/23 09:00 Pulse 57 L 01/15/23 12:02 Resp 16 01/15/23 10:00 BP 147/86 01/13/23 09:03 Pulse Ox 93 L 01/15/23 10:00 FiO2 40 01/15/23 11:48 Intake & Output 01/14/23 01/15/23 01/15/23 18:59 06:59 18:59 Intake Total 871.187 860.14 377.92 Output Total 855 460 140 Balance 16.187 400.14 237.92 Weight 90.5 kg 90.5 kg Intake: IV 166 143 52 ARTERIAL LINE. 36 33 12 Sodium Chloride 0.9% 1, 130 110 40 000 ml @ 20 mls/hr IV . Q24H [facility] Rx#:[id number] Intake, IV Titration 315.187 352.14 195.92 Amount Sodium Chloride 0.9% 80 83.527 52.14 95.92 ml @ 1 MCG/KG/HR 8.8 mls/ hr IV .[id number] [facility] with fentaNYL (PF) 1,000 mcg Rx#:[id number] propofoL 1,000 mg In 231.660 300 100 Empty Bag 1 bag @ 20 MCG/ KG/MIN 10.452 mls/hr IV . Q9H35M [facility] Rx#:[id number] Tube Feeding 300 275 100 Other 90 90 30 Output: Urine 855 460 140 Other: Voiding Method Indwelling Catheter Indwelling Catheter ABP, PAP, CO, CI - Last Documented Arterial Blood Pressure 133/49 - Labs CBC & Chem 7: 01/15/23 05:36 01/15/23 05:36 Labs: Abnormal Lab Results - Last 24 Hours (Table) 01/14/23 01/14/23 01/14/23 Range/Units 16:09 19:47 23:15 WBC (3.8-10.6) k/uL RBC (3.80-5.40) m/uL Hgb (11.4-16.0) gm/dL ABG pCO2 (35-45) mmHg ABG pO2 (83-108) mmHg ABG HCO3 (21-25) mmol/L ABG Total CO2 (19-24) mmol/L Carbon Dioxide (22-30) mmol/L BUN (7-17) mg/dL Glucose (74-99) mg/dL POC Glucose (mg/dL) 193 H 174 H 222 H (70-110) mg/dL Calcium (8.4-10.2) mg/dL 01/15/23 01/15/23 01/15/23 Range/Units 03:49 05:25 05:36 WBC 10.9 H (3.8-10.6) k/uL RBC 3.47 L (3.80-5.40) m/uL Hgb 11.2 L (11.4-16.0) gm/dL ABG pCO2 56 H (35-45) mmHg ABG pO2 78 L (83-108) mmHg ABG HCO3 39 H (21-25) mmol/L ABG Total CO2 41 H (19-24) mmol/L Carbon Dioxide (22-30) mmol/L BUN (7-17) mg/dL Glucose (74-99) mg/dL POC Glucose (mg/dL) 153 H (70-110) mg/dL Calcium (8.4-10.2) mg/dL 01/15/23 01/15/23 01/15/23 Range/Units 05:36 09:06 12:34 WBC (3.8-10.6) k/uL RBC (3.80-5.40) m/uL Hgb (11.4-16.0) gm/dL ABG pCO2 (35-45) mmHg ABG pO2 (83-108) mmHg ABG HCO3 (21-25) mmol/L ABG Total CO2 (19-24) mmol/L Carbon Dioxide 37 H (22-30) mmol/L BUN 40 H (7-17) mg/dL Glucose 132 H (74-99) mg/dL POC Glucose (mg/dL) 132 H 147 H (70-110) mg/dL Calcium 8.1 L (8.4-10.2) mg/dL Microbiology - Last 24 Hours (Table) 01/09/23 12:30 Blood Culture - Preliminary Blood No Growth after 120 hours 01/09/23 12:43 Blood Culture - Preliminary Blood No Growth after 120 hours
[2023-01-16 03:38] LABS: Glucose,Whole Blood 122 mg/dL (70-110)
[2023-01-16] MEDS: DULoxetine HCL 30 MG CAPSULE.DR PO SCH (03:38)
[2023-01-16] MEDS: INSULIN ASPART (NovoLOG) 100 UNIT/ML VIAL SQ SCH ×12 (03:38→23:45)
[2023-01-16] MEDS: THEOPHYLLINE 24 HOUR 400 MG CAP.ER.24H PO SCH (04:00)
[2023-01-16 05:10] LABS: ABG Base Excess 15.6 mmol/L; ABG HCO3 39 mmol/L (21-25); ABG Oxygen Saturation 94.5 % (94-97); ABG PCO2 54 mmHg (35-45); ABG PH 7.47 (7.35-7.45); ABG PO2 71 mmHg (83-108); ABG TCO2 41 mmol/L (19-24); Allen Test Performed? Yes
[2023-01-16 05:23] LABS: HCT 34.5 % (34.0-46.0); HGB 11.1 gm/dL (11.4-16.0); MCH 31.6 pg (25.0-35.0); MCHC 32.3 g/dL (31.0-37.0); Mean Platelet Volume 9.4; Platelet Count 206 k/uL (150-450); RBC 3.52 m/uL (3.80-5.40); RDW 15.5 % (11.5-15.5); WBC 16.5 k/uL (3.8-10.6)
[2023-01-16 05:36] LABS: African American GFR (CKD) >90 (>60 ml/min/1.73 sqM); Blood Urea Nitrogen 42 mg/dL (7-17); Calcium 8.3 mg/dL (8.4-10.2); Chloride 98 mmol/L (98-107); Glucose 138 mg/dL (74-99); Non-African American GFR(CKD) 85 (>60 ml/min/1.73 sqM); Potassium 4.3 mmol/L (3.5-5.1); Sodium 138 mmol/L (137-145)
[2023-01-16 05:43] LABS: Anion Gap 5 mmol/L; Carbon Dioxide 35 mmol/L (22-30)
[2023-01-16] MEDS: methylPREDNISolone SOD SUCCI 125 MG/2 ML VIAL IV SCH ×4 (06:21→23:48)
[2023-01-16] MEDS: carvediloL 12.5 MG TAB PO SCH ×2 (06:21→16:54)
[2023-01-16] MEDS: INSULIN DETEMIR (LEVEMIR) 100 UNIT/ML SYR SQ SCH ×2 (06:26→20:43)
--- NOTE | 2023-01-16 08:03 | XR ---
EXAMINATION TYPE: XR chest 1V portable DATE OF EXAM: 01/16/2023 6:00 AM COMPARISON: Chest radiographs from 01/15/2023 TECHNIQUE: XR chest 1V portable Portable AP radiograph of the chest. CLINICAL INDICATION:Female, 67 years old with history of tube placement; FINDINGS: Patient is rotated which limits evaluation. Lungs/Pleura: Small right pleural effusion with patchy right basilar airspace opacities. No pneumotho rax. Mild hyperinflation. Interstitial densities are similar. Pulmonary vascularity: Unremarkable. Heart/mediastinum: Cardiomediastinal silhouette is enlarged and stable. Atherosclerotic calcificatio ns are seen in the aorta. Musculoskeletal: No acute osseous pathology. Other findings: None Lines/Tubes: Endotracheal tube with distal tip 3.6 cm above the rod Nasogastric tube with its distal tip and side-port projecting under the diaphragm. Left-sided PICC with distal tip at the mid superior vena cava. IMPRESSION: 1. Rotated examination. Mild cardiomegaly and similar interstitial change with small right pleural e ffusion and right basilar patchy airspace opacities which may represent atelectasis versus infiltrate . 2. Stable support lines and tubes.
[2023-01-16] MEDS: FORMOTEROL FUMARATE 20 MCG/2 ML NEBU INHALATION SCH ×2 (08:05→20:30)
[2023-01-16] MEDS: BUDESONIDE 1 MG/2 ML NEBU INHALATION SCH ×2 (08:05→20:30)
[2023-01-16 08:28] LABS: Glucose,Whole Blood 140 mg/dL (70-110)
[2023-01-16] MEDS: CHLORHEXIDINE GLUCONATE 15 ML CUP MUCOUS MEM SCH ×2 (08:31→20:41)
[2023-01-16] MEDS: LACTULOSE 20 GM/30 ML CUP PO SCH ×2 (08:31→20:41)
[2023-01-16] MEDS: HEPARIN SODIUM,PORCINE/PF 5,000 UNIT/0.5 ML SYRINGE SQ SCH ×2 (08:32→20:41)
[2023-01-16] MEDS: FUROSEMIDE 10 MG/ML 2 ML VIAL IV SCH (08:34)
[2023-01-16] MEDS: PANTOPRAZOLE 40 MG/10 ML VIAL IVP SCH ×2 (08:34→20:41)
[2023-01-16] MEDS: VERAPAMIL 40 MG TAB PO SCH ×3 (08:35→20:42)
[2023-01-16] MEDS: NOREPINEPHRINE 4 MG in SODIUM CHLORIDE 0.9% 250 ML IV SCH (10:05)
[2023-01-16 11:58] LABS: Glucose,Whole Blood 135 mg/dL (70-110)
[2023-01-16] MEDS: CLEVIDIPINE BUTYRATE 25 MG in EMPTY BAG 1 BAG IV SCH (12:01)
--- NOTE | 2023-01-16 12:14 | P.PN ---
Subjective Progress Note Date: 01/16/23 Principal diagnosis: Respiratory failure. Reevaluated today on 01/11/2023, patient remains intubated and mechanically ventilated. She is on assist control rate of 16 tidal volume 450 FiO2 50% and PEEP of 5 ABG showed a pO2 of 95 pCO2 56 pH of 7.41, I cut down her FiO2 to 45%. Patient remains on propofol at 35 mcg/kg/m she is also on vitamin HP/enteral feeding at 30 mL per hour, and she is on IV fluid to KVO. Patient remains sedated, he is hemodynamically stable, not requiring any pressors. Remains on GI and DVT prophylaxis, antibiotics have been discontinued since all the cultures have been negative including blood cultures and sputum cultures so far. Patient was on cefepime which I will discontinue. Chest x-ray showed tiny right-sided pleural effusion and left pleural effusion with bibasilar atelectasis, no clear-cut evidence of pneumonia CBC is normal and basic metabolic is unremarkable Reevaluated today on 01/12/2023, patient remains in the ICU, intubated and mechanically ventilated. Patient is on assist control rate of 16 tidal volume 450 FiO2 45% and PEEP of 5 ABG showed a pO2 of 78 pCO2 of 50 pH of 7.47, FiO2 was cut down to 40%. Remains on propofol at 20 mcg/kg/m, not requiring any pressors, she is on vital HP/for enteral nutritional support. It is at 35 mL per hour. Patient is maintaining good urine output, she is on IV fluid at 75 mL per hour. Today the patient was given a short trial of pressure support of 12 and CPAP, did not do well, and she was moving very small tidal volumes and noted to be tachypneic on physical examination she did have scattered rhonchi and wheezes. Patient is obviously not ready for any weaning trials or extubation at this point. Chest x-ray continues to show small bilateral effusions with a right basilar atelectasis. Blood cultures have been negative and sputum cultures have been negative showing mostly normal respiratory patricia, has antibiotics have been discontinued. Patient remains mostly on bronchodilators, is also on GI and DVT prophylaxis Reevaluated today on 01/13/2023, patient remains in the ICU, intubated and mechanically ventilated. She is on assist control rate of 16 tidal volume 450 FiO2 40% and PEEP of 5 ABG showed a pO2 of 70 pCO2 52 pH of 7.47 hence no change was made in her ventilator settings. Patient remains on propofol at 20 mcg/kg/m IV fluid at KVO vital HP at 25 mL per hour not requiring any pressors. However the patient became extremely agitated yesterday in spite of maximal dose of propofol hence I started the patient on fentanyl at 0.5 mcg/kg per hour. And sh e remains on fentanyl propofol was cut down to 40 mics per kilo per minute. Chest x-ray is basically the same showing some bibasilar atelectasis especially at the right base. And small pleural effusions. WBC count is 7.1 hemoglobin 11.2 electrolytes are normal bicarb is 39, renal profile is normal blood sugar is 247 Reevaluated today on 01/14/2023, patient remains in the ICU, intubated and mech anically ventilated. She is on assist control rate of 16 tidal volume 450 FiO2 40% PEEP of 5 ABG showed a pO2 of 69 pCO2 58 pH of 7.43. Patient is still on propofol at 45 mcg/kg/m she is also on fentanyl 0.5 mics per kilo per hour receiving vital HP at 25 mL per hour. On lower doses of sedation, the patient seems to be appropriate according to the nurses, and follows simple instructions. However the patient continues to have significant abnormal lung findings with diffuse rhonchi and wheezes bilaterally, I feel the patient is not given be able to wean easily considering his severe underlying COPD, hence [facility] consulting Dr. Burgess for possible tracheostomy and PEG tube placement in the next 24-48 hours. In the meantime I will continue present supportive care measures. And continue present treatment plan. WBC count is 8.8 hemoglobin is 11.1. Basic metabolic profile is normal renal profile is normal, chest x-ray continues to show small bilateral pleural effusions and right lower lobe atelectasis, again strongly doubt pneumonia. Progress note dated 01/15/2023. 67-year-old female well-known to our service. She has a history of severe/end- stage oxygen-dependent COPD. She was admitted to the hospital on January 04 with respiratory failure and COPD exacerbation. She was intubated and mechanically ventilated on January 09. The patient currently is on volume assist control, rate 16, tidal volume 450, FiO2 40%, and PEEP of 5. Blood gases show pO2 78, pCO2 56, and a pH is 7.45. At 50 mcg/kg/m, and fentanyl at 1 mcg/kg/h. The patient's also getting saline at 10 mL an hour, and vital high protein at 25 mL an hour, which is goal. The patient will have a daily interruption of sedation today, on a pressure support of a CPAP of 5. The patient's peak airway pressures 43, and plateau pressure is 27. Such a large difference between the peak and plateau, the patient is likely not to be extubated today. White count 10.9, hemoglobin 11.2, hematocrit 34.1, with a normal platelet count. Sodium 137, potassium 4.5, chlorides 99, CO2 37, BUN 40, creatinine 0.65. Chest x-ray shows some cardiomegaly, and mild interstitial changes, possibly related to interstitial edema. Progress note dated 01/16/2023. 67-year-old female well-known to our service. She has a history of severe end- stage COPD. She was admitted to the hospital on January 04. At that time she had respiratory failure with COPD exacerbation. She required intubation on January 09. For the last 2 days we attempted a daily interruption of sedation, and spontaneous breathing trial. Unfortunately, she failed miserably, within minutes. Hence, it is likely that we will proceed with tracheostomy and PEG tub e placement. The patient is on volume assist control, rate 16, tidal volume 450, FiO2 40%, and PEEP of 5. PO2 71, pCO2 of 54, and pH is 7.47. The patient's currently on fentanyl, 1 mcg/kg/h, propofol 50 mcg/kg/m, and saline at KVO. The patient is getting vital high protein at goal, which is 25 mL an hour. Yesterday, she failed her SBT, after 2 minutes. White count 16.5, hemoglobin 11.1, hematocrit 34.5, and platelet count 206,000. Sodium 138, potassium 4.3, chlorides 98, CO2 35, BUN 42, creatinine 0.73. Microbiologic sampling is negative. Chest x-ray shows patchy and/or atelectasis. Objective - Vital Signs Vital signs: Vital Signs Temp 97.9 F 01/16/23 08:00 Pulse 55 L 01/16/23 11:55 Resp 15 03/21/23 11:55 BP 147/86 01/16/23 11:00 Pulse Ox 91 L 01/16/23 11:00 FiO2 40 01/16/23 11:39 Intake & Output 01/15/23 01/16/23 01/16/23 18:59 06:59 18:59 Intake Total 824.942 987.012 385.468 Output Total 800 530 535 Balance 24.942 457.012 -149.532 Weight 90.5 kg 91.9 kg Intake: IV 156 169 52 ARTERIAL LINE. 36 39 12 Sodium Chloride 0.9% 1, 120 130 40 000 ml @ 20 mls/hr IV . Q24H [facility] Rx#:[id number] Intake, IV Titration 278.942 403.012 203.468 Amount Clevidipine Butyrate 25 0.667 49.333 mg In Empty Bag 1 bag @ 1 MG/HR 2 mls/hr IV .Q24H [facility] Rx#:[id number] Sodium Chloride 0.9% 80 95.92 100 83.6 ml @ 1 MCG/KG/HR 8.8 mls/ hr IV .[id number] [facility] with fentaNYL (PF) 1,000 mcg Rx#:[id number] propofoL 1,000 mg In 182.355 253.679 119.868 Empty Bag 1 bag @ 20 MCG/ KG/MIN 10.452 mls/hr IV . Q9H35M [facility] Rx#:[id number] Tube Feeding 300 325 100 Other 90 90 30 Output: Urine 800 530 535 Other: Voiding Method Indwelling Catheter Indwelling Catheter Indwelling Catheter ABP, PAP, CO, CI - Last Documented Arterial Blood Pressure 110/45 - Exam No acute distress, currently sedated, with an orally placed endotracheal tube. HEENT examination is grossly unremarkable. Neck supple. Full range of motion. No adenopathy thyromegaly or neck vein distention. Cardiovascular examination reveals regular rhythm rate. S1-S2 normal. No S3 or S4. No discernible murmur noted. Heart rate about 55 bpm. Heart sounds are distant. Lungs reveal expiratory rhonchi and wheezes. Breath sounds equal. Saturations are 91%. Abdomen soft with bowel sounds, and without masses or tenderness. Extremities are intact. No cyanosis clubbing or edema. Skin is without rash or lesion. Neurologic examination cannot be adequately assessed at this time. - Labs CBC & Chem 7: 01/16/23 05:05 01/16/23 05:05 Labs: Abnormal Lab Results - Last 24 Hours (Table) 01/15/23 01/15/23 01/15/23 Range/Units 12:34 20:24 23:42 WBC (3.8-10.6) k/uL RBC (3.80-5.40) m/uL Hgb (11.4-16.0) gm/dL ABG pH (7.35-7.45) ABG pCO2 (35-45) mmHg ABG pO2 (83-108) mmHg ABG HCO3 (21-25) mmol/L ABG Total CO2 (19-24) mmol/L Carbon Dioxide (22-30) mmol/L BUN (7-17) mg/dL Glucose (74-99) mg/dL POC Glucose (mg/dL) 147 H 168 H 137 H (70-110) mg/dL Calcium (8.4-10.2) mg/dL 01/16/23 01/16/23 01/16/23 Range/Units 03:36 04:05 05:05 WBC 16.5 H (3.8-10.6) k/uL RBC 3.52 L (3.80-5.40) m/uL Hgb 11.1 L (11.4-16.0) gm/dL ABG pH 7.47 H (7.35-7.45) ABG pCO2 54 H (35-45) mmHg ABG pO2 71 L (83-108) mmHg ABG HCO3 39 H (21-25) mmol/L ABG Total CO2 41 H (19-24) mmol/L Carbon Dioxide (22-30) mmol/L BUN (7-17) mg/dL Glucose (74-99) mg/dL POC Glucose (mg/dL) 122 H (70-110) mg/dL Calcium (8.4-10.2) mg/dL 01/16/23 01/16/23 01/16/23 Range/Units 05:05 08:27 11:56 WBC (3.8-10.6) k/uL RBC (3.80-5.40) m/uL Hgb (11.4-16.0) gm/dL ABG pH (7.35-7.45) ABG pCO2 (35-45) mmHg ABG pO2 (83-108) mmHg ABG HCO3 (21-25) mmol/L ABG Total CO2 (19-24) mmol/L Carbon Dioxide 35 H (22-30) mmol/L BUN 42 H (7-17) mg/dL Glucose 138 H (74-99) mg/dL POC Glucose (mg/dL) 140 H 135 H (70-110) mg/dL Calcium 8.3 L (8.4-10.2) mg/dL Microbiology - Last 24 Hours (Table) 01/09/23 12:30 Blood Culture - Final Blood No Growth after 144 hours 01/09/23 12:43 Blood Culture - Final Blood No Growth after 144 hours Assessment and Plan Assessment: Acute on chronic hypoxemic and hypercapnic respiratory failure, requiring intubation on 01/09/2023. Possible underlying sepsis, with hypotension. Severe end-stage COPD. Chronic hypercapnic respiratory failure. History of left upper lobe nodule. Previous history of coronavirus associated pneumonia. Benign essential hypertension. History of rheumatoid arthritis. Chronic back pain. Prior history of tobacco use. Cushingoid habitus, secondary to chronic steroids. Gen. medical debility. Plan: Plan dated 01/15/2023. Labs, x-rays, and medications are reviewed. The patient may not be weaned and mobile at this point, given the large difference between the peak airway pressure, and a plateau pressure. We will attempt a daily interruption of sedation, and a spontaneous breathing trial. Family wants to hold off on the tr acheostomy and PEG tube at this time, to see if the patient is possibly able to come off the ventilator. Prognosis remains very guarded. We will continue with GI and DVT prophylaxis. We continue with tube feeds. Arterial blood gases are reasonable. Plan dated 01/16/2023. The patient's doing about the same, she is chronically and critically ill, and his failed her spontaneous breathing trials, for the last 2 days. Labs, x-rays, medications are reviewed. She remains on fentanyl and propofol. She is getting tube feedings. The patient currently is a full code. Apparently her sister is questioning whether or not the patient should have a tracheostomy and PEG tube. We will attempt to talk to the sister. Patient's overall prognosis remains very poor. She is receiving tube feedings. She remains on GI and DVT prophylaxis. Time with Patient: Greater than 30
--- NOTE | 2023-01-16 13:16 | P.PN ---
Subjective Progress Note Date: 01/16/23 CHIEF COMPLAINT: Respiratory failure, malnutrition HISTORY OF PRESENT ILLNESS: Patient is currently in the ICU intubated and on mechanical ventilation. Patient failed weaning trial. Patient is tentatively scheduled for tracheostomy and PEG tube placement tomorrow. Awaiting family's consent. Afebrile. WBC 16 PHYSICAL EXAM: VITAL SIGNS: Reviewed. GENERAL: Well-developed in no acute distress. ABDOMEN: Soft. Nondistended. Nontender. ASSESSMENT: 1. Respiratory failure 2. Moderate protein calorie malnutrition PLAN: -Patient is tentatively scheduled for tracheostomy and PEG tube placement tomorrow -Awaiting family's consent for procedure -Family wants to discuss plan of care with critical care service before signing consent Physician Gravity Meter Operator note has been reviewed by physician. Signing provider agrees with the documented findings, assessment, and plan of care. Objective - Vital Signs Vital signs: Vital Signs Temp 97.9 F 01/16/23 08:00 Pulse 55 L 01/16/23 11:55 Resp 15 01/16/23 11:55 BP 147/86 01/16/23 11:00 Pulse Ox 91 L 01/16/23 11:00 FiO2 40 01/16/23 11:39 Intake & Output 01/15/23 01/16/23 01/16/23 18:59 06:59 18:59 Intake Total 824.942 987.012 385.468 Output Total 800 530 535 Balance 24.942 457.012 -149.532 Weight 90.5 kg 91.9 kg Intake: IV 156 169 52 ARTERIAL LINE. 36 39 12 Sodium Chloride 0.9% 1, 120 130 40 000 ml @ 20 mls/hr IV . Q24H [facility] Rx#:[id number] Intake, IV Titration 278.942 403.012 203.468 Amount Clevidipine Butyrate 25 0.667 49.333 mg In Empty Bag 1 bag @ 1 MG/HR 2 mls/hr IV .Q24H [facility] Rx#:[id number] Sodium Chloride 0.9% 80 95.92 100 83.6 ml @ 1 MCG/KG/HR 8.8 mls/ hr IV .[id number] [facility] with fentaNYL (PF) 1,000 mcg Rx#:[id number] propofoL 1,000 mg In 182.355 253.679 119.868 Empty Bag 1 bag @ 20 MCG/ KG/MIN 10.452 mls/hr IV . Q9H35M [facility] Rx#:[id number] Tube Feeding 300 325 100 Other 90 90 30 Output: Urine 800 530 535 Other: Voiding Method Indwelling Catheter Indwelling Catheter Indwelling Catheter ABP, PAP, CO, CI - Last Documented Arterial Blood Pressure 110/45 - Labs CBC & Chem 7: 01/16/23 05:05 01/16/23 05:05 Labs: Abnormal Lab Results - Last 24 Hours (Table) 01/15/23 01/15/23 01/15/23 Range/Units 12:34 20:24 23:42 WBC (3.8-10.6) k/uL RBC (3.80-5.40) m/uL Hgb (11.4-16.0) gm/dL ABG pH (7.35-7.45) ABG pCO2 (35-45) mmHg ABG pO2 (83-108) mmHg ABG HCO3 (21-25) mmol/L ABG Total CO2 (19-24) mmol/L Carbon Dioxide (22-30) mmol/L BUN (7-17) mg/dL Glucose (74-99) mg/dL POC Glucose (mg/dL) 147 H 168 H 137 H (70-110) mg/dL Calcium (8.4-10.2) mg/dL 01/16/23 01/16/23 01/16/23 Range/Units 03:36 04:05 05:05 WBC 16.5 H (3.8-10.6) k/uL RBC 3.52 L (3.80-5.40) m/uL Hgb 11.1 L (11.4-16.0) gm/dL ABG pH 7.47 H (7.35-7.45) ABG pCO2 54 H (35-45) mmHg ABG pO2 71 L (83-108) mmHg ABG HCO3 39 H (21-25) mmol/L ABG Total CO2 41 H (19-24) mmol/L Carbon Dioxide (22-30) mmol/L BUN (7-17) mg/dL Glucose (74-99) mg/dL POC Glucose (mg/dL) 122 H (70-110) mg/dL Calcium (8.4-10.2) mg/dL 01/16/23 01/16/23 01/16/23 Range/Units 05:05 08:27 11:56 WBC (3.8-10.6) k/uL RBC (3.80-5.40) m/uL Hgb (11.4-16.0) gm/dL ABG pH (7.35-7.45) ABG pCO2 (35-45) mmHg ABG pO2 (83-108) mmHg ABG HCO3 (21-25) mmol/L ABG Total CO2 (19-24) mmol/L Carbon Dioxide 35 H (22-30) mmol/L BUN 42 H (7-17) mg/dL Glucose 138 H (74-99) mg/dL POC Glucose (mg/dL) 140 H 135 H (70-110) mg/dL Calcium 8.3 L (8.4-10.2) mg/dL Microbiology - Last 24 Hours (Table) 01/09/23 12:30 Blood Culture - Final Blood No Growth after 144 hours 01/09/23 12:43 Blood Culture - Final Blood No Growth after 144 hours
[2023-01-16 16:50] LABS: Glucose,Whole Blood 121 mg/dL (70-110)
[2023-01-16] MEDS: SODIUM CHLORIDE 0.9% 1,000 ML IV SCH (16:55)
[2023-01-16 19:51] LABS: Glucose,Whole Blood 113 mg/dL (70-110)
[2023-01-16] MEDS: rOPINIRole HCL 4 MG TABLET PO SCH (20:43)
[2023-01-16] MEDS: MONTELUKAST 10 MG TAB PO SCH (20:44)
[2023-01-16 23:46] LABS: Glucose,Whole Blood 135 mg/dL (70-110)
[2023-01-17] MEDS: IPRATROPIUM 0.5 MG/2.5 ML NEBU INHALATION SCH ×6 (00:17→19:34)
[2023-01-17] MEDS: ALBUTEROL NEBULIZED 2.5 MG/3 ML INHALATION SCH ×6 (00:17→19:34)
[2023-01-17 04:04] LABS: Glucose,Whole Blood 165 mg/dL (70-110)
[2023-01-17] MEDS: INSULIN ASPART (NovoLOG) 100 UNIT/ML VIAL SQ SCH ×10 (04:30→20:51)
[2023-01-17 05:09] LABS: Basophils % (A) 0 %; Eosinophils % (A) 0 %; HCT 38.5 % (34.0-46.0); HGB 12.2 gm/dL (11.4-16.0); Lymphocytes # (A) 0.3 k/uL (1.0-4.8); Lymphocytes % (A) 2 %; MCH 31.3 pg (25.0-35.0); MCHC 31.7 g/dL (31.0-37.0); MCV 98.7 fL (80.0-100.0); Mean Platelet Volume 9.2; Monocytes # (A) 0.3 k/uL (0-1.0); Monocytes % (A) 2 %; Neutrophils % (A) 95 %; Platelet Count 207 k/uL (150-450); RDW 15.4 % (11.5-15.5); WBC 13.7 k/uL (3.8-10.6)
[2023-01-17 05:24] LABS: African American GFR (CKD) >90 (>60 ml/min/1.73 sqM); Blood Urea Nitrogen 41 mg/dL (7-17); Calcium 8.1 mg/dL (8.4-10.2); Chloride 97 mmol/L (98-107); Glucose 196 mg/dL (74-99); Non-African American GFR(CKD) >90 (>60 ml/min/1.73 sqM); Potassium 4.3 mmol/L (3.5-5.1); Sodium 136 mmol/L (137-145)
[2023-01-17 05:31] LABS: Anion Gap 4 mmol/L; Carbon Dioxide 35 mmol/L (22-30)
--- NOTE | 2023-01-17 05:40 | XR ---
EXAMINATION TYPE: XR chest 1V portable DATE OF EXAM: 01/17/2023 COMPARISON: 01/16/2023 HISTORY: Tube placement. TECHNIQUE: Single view FINDINGS: Endotracheal tube is 2.5 cm from the rod. There is left subclavian catheter with tip in the superior vena cava. There is nasogastric tube in the stomach. There is some pleural reaction and atelectasis right lung base. No heart failure. Left lung is clear. IMPRESSION: Small right pleural effusion and right basilar atelectasis without much change. No obviou s heart failure.
[2023-01-17] MEDS: SODIUM CHLORIDE 0.9% 80 ML with fentaNYL (PF) 1,000 MCG IV SCH ×4 (05:59→14:56)
[2023-01-17] MEDS: methylPREDNISolone SOD SUCCI 125 MG/2 ML VIAL IV SCH ×3 (06:01→17:49)
[2023-01-17] MEDS: TOBRA-DEXAMET 0.3-0.1% OPHTH DROPS 2.5 ML BTL RIGHT EYE SCH ×5 (06:02→20:52)
[2023-01-17] MEDS: DULoxetine HCL 30 MG CAPSULE.DR PO SCH (06:02)
[2023-01-17] MEDS: THEOPHYLLINE 24 HOUR 400 MG CAP.ER.24H PO SCH (06:02)
--- NOTE | 2023-01-17 06:05 | P.PN ---
Subjective Progress Note Date: 01/16/23 This is a pleasant 67 years old female with past medical history of advanced COPD advanced COPD on home oxygen dependent on 3-4 L at all times, obstructive sleep apnea CPAP dependent nightly, diastolic CHF hypertension, iron deficiency anemia, rheumatoid arthritis, and chronic back pain who presented to the ER because of worsening shortness of breath for a few days duration Patient currently is lying in bed in the emergency room 6, with BiPAP machine on with parameters of 15/6, FiO2 of 40%. Patient is tachypneic breathing with direct about 34-37. Patient looks tired and she could not provide much information, she cannot talk but she is awake and oriented. She follows commands. She has minimal chest movement with expiratory wheezing. She denies any pain, no chest pain she denies any GI or urinary symptoms. She moves all extremities symmetrically. vitals reviewed and patient is afebrile. Mild Leukocytosis of 12.2, Mild Thrombocytopenia 127. Hemoglobin Normal. INR 0.9. VBG Showing High PCO2 of 84, Low pH of 7.3. BNP showing high carbon dioxide at 49, creatinine normal. Liver enzymes not elevated. Troponin negative. ProBNP is 301. Glucose 128. Chest x-ray reviewed by myself showing enlarged heart with COPD changes. Minimal chest congestion. Patient started on dexamethasone, albuterol. EKG showing normal sinus rhythm at [address]-T changes. 01/05/2023 Patient remains in the ICU, she required BiPAP all the ninth yesterday except for one hour she got some rest. Today patient showed significant improvement, she is more alert awake, pleasant. Her mentation is back to normal. Her breathing is also improving with decrease respiratory rate into 18-20, per to more than 30 yesterday. Repeat chest x-ray looks similar findings to yesterday with no obvious infiltrate or consolidation. The heart is mildly enlarged, just x-ray reviewed by myself. Other vitals and labs looks stable. pro-calcitonin is slightly elevated at 0.20 She is currently receiving IV Solu-Medrol 60 mg as well as broad-spectrum antibiotics with vancomycin and cefepime Until doxycycline. Also she is on IV Lasix daily. 01/06/2023 pt today is significantly improved , she can talk easily off the bipap machine in the moring although she was using all night, she requires few liter of oxgyen per min like 4 only Because of significant improvement and she was moved out of the ICU Her treatment was the risk related, antibiotics vancomycin and doxycycline were stopped and Cefepime. IV Lasix Switched to Oral Dose of 40 Mg Daily. While She Kept on High Dose of IV Solu-Medrol 60 Mg. 01/07/2023 Patient today having some more breathing difficulty compared to yesterday however she still looks greatly although she still have some wheezing. She is saturating 90s on 4 L oxygen via nasal cannula, no much of accessory muscles and she can talk more freely. Her chest x-ray today showing worse than admission when I reviewed it but most likely this is because of the technique. She remains on IV Solu-Medrol, 60 mg. Cefepime, oral Lasix 40 mg daily. Patient did not need BiPAP last night. Patient wants to keep the [place] cath in Place because it's harder for her to get up 01/08/2023 Patient seen and evaluated in follow-up today with pulmonary following closely. Patient is continued on 4 L via nasal cannula as well as BiPAP. Patient continues on oral steroids along with inhalers and cefepime. Patient was started on cefepime empirically for concerns of pneumonia. Patient continues to be extremely dyspneic with minimal exertion and would recommend weaning FiO2 as tolerated. Patient normally wears a CPAP and has one for the outpatient setting although would recommend continuing with BiPAP especially at night from 8 PM to 6 AM. Continue BiPAP as needed as well. Patient extremely weak and has been progressively getting more weak with each admission. Patient has been hospitalized very frequently most recently and clinically very slow to improve. Case management following as there will be plans to return to rehab or possible inpatient rehab. Will await PT/OT therapy evaluation. Patient is currently afebrile denies chest pain or palpitations. Patient reports she is tolerating diet with no reports of nausea or vomiting noted. 01/09/2023 Patient is seen and evaluated in follow up today and per nursing staff was found this morning with her oxygen and BIpap mask off and O2 saturations in the 60's. Patient was placed back on bipap and numbers improved slightly although continued to be restless, combative, and not following commands. Ordered ativan to calm and was not effective. Patient extremely dyspneic and tachypneic and working with accessory muscle use. Luckily, pulmonary was rounding on the unit and ordered transfer to ICU for possible intubation and close monitoring. Patient is afebrile and continued on cefepime empirically and sputum cultures ordered. continued on breathing treatments as well as oral prednisone. 01/10/2023 Patient is seen in follow up today and continues to be in the ICU in critical condition. Patient continues on mechanical ventilation with an FI02 of 50% and peep is 5. Patient was off pressor support and off propofol and not tolerating with no plans for weaning off the vent at this time. Peg and tracheostomy is being considered in the next few days possibly. Patient overall prognosis is extremely poor and guarded at this time. PICC line is being ordered and pending. Patient is also continued on empiric antibiotics and awaiting cultures. Patient also placed back on IV steroids per pulmonary. Patient is afebrile. 01/11/2023 Patient is seen and evaluated in follow-up today continues to be in the MICU with pulmonary hospital wellness coordinator following closely. Patient remains on mechanical ventilation working on weaning FiO2 as tolerated. FiO2 is currently at 45% with a PEEP of 5 and undergoing sedation holidays with no plans of weaning at this time. Patient was continued on Cefepime although cultures are negative and blood cultures remain negative will discontinue cefepime. Patient is continued on tube feeds and blood sugar slightly elevated will continue sliding scale and add low-dose long-acting twice daily and continue to monitor Accu-Cheks before meals and at bedtime. Recommend follow-up chest x-ray and labs in the a.m. 01/12/2023 Patient is seen and evaluated continues to be the ICU with sister at the bedside. Patient remains on mechanical ventilation with no plans of weaning at this time. FiO2 being adjusted down to 40% with a PEEP of 5 and patient is tolerating well. Patient is off pressor support as well as antibiotics and being closely monitored. Patient's blood sugars elevated and have added long- acting and will increase in continue to monitor closely. Chest x-ray today shows persistent bilateral effusions right greater than left with patchy densities and atelectasis. Patient is undergoing sedation holidays to monitor mental status. Sister at the bedside and discussed with Juventino and address their questions and concerns to the? Ability. Patient remains afebrile. Patient is continued on tube feeding and tolerating. Overall prognosis remains extremely g uarded. 01/13/2023 Patient is evaluated today continues to be in the ICU and undergoing weaning tri als of sedation and had CPAP trial yesterday and did not tolerate well became increasingly agitated on maximum propofol requiring sentinel. Propofol being titrated down. Patient continues off pressor support. Patient is maintained of IV antibiotics and is continued on IV steroids along with breathing treatments. Patient being started on lactulose unknown last bowel movement. Recommend daily chest x-rays and follow-up labs. Recommend to replace electrolytes per protocol. Blood sugars remain elevated and tolerating tube feeds and will continue sliding scale and increased long-acting to 20 units twice daily. Recommend Accu-Cheks before meals and at bedtime. 01/14/2023 Patient is seen in follow-up continues to be in the ICU maintained on mechanical ventilation with an FiO2 of 40% and PEEP is 5. No plans for trials of weaning today other than mild sedation holiday to assess mentation. Per nursing staff patient is following commands off sedation although does get quite restless and hypertensive and symptomatic no plans for sedation holiday today. Patient is continued on propofol and fentanyl and will continue. Patient is monitored off IV antibiotics and cultures have remained negative. Patient's blood sugars elevated and will add increased insulin covered and continue with current regimen. Pulmonary has consulted general surgery for possible tracheostomy and PEG tube placement and awaiting family decision and consent. 01/15/2023 The patient was seen and evaluated continues to be in the ICU under critical condition. Patient remains on mechanical ventilation with an FiO2 of 40% and PEEP is 5. Working on weaning trials in terms of sedation to monitor mentation with no plans of weaning from mechanical plan at this time. There were plans for possible PEG and trach this morning although family would like a few more days to see if patient is able to wean off the vent. Per pulmonary will attempt CPAP trials and assess for weaning. Chest x-ray today shows some congestion with no significant difference from previous. Patient is continued on IV Lasix daily along with IV steroids, propofol and fentanyl currently off antibiotic and pressor support. Prognosis remains extremely critical and guarded at this time. 01/16/2023 Patient is seen and evaluated in follow-up today continues to be in the ICU with overall poor and guarded prognosis. Patient remains on mechanical vent with an FiO2 of 40% and PEEP is 5. Continuing with daily sedation holiday trials and trialing spontaneous breathing trials although patient is feeling miserable. Pulmonary hospital wellness coordinator leaning towards PEG and trach placement will need to discuss further with family. Patient is afebrile continued on IV steroids and breathing treatments is receiving IV Lasix daily and being closely monitored with blood sugars. Blood sugars are improved we'll continue current regimen. Patient continued on tube feedings and tolerating. Review of systems: unable to obtain as patient is on mechanical vent and sedated All medications have been reviewed Active Medications Acetaminophen (Acetaminophen Tab 500 Mg Tab) 1,000 mg PO Q6HR PRN PRN Reason: Fever and/ or Pain Last Admin: 01/12/23 22:28 Dose: 1,000 mg Albuterol Sulfate (Albuterol Nebulized 2.5 Mg/3 Ml) 2.5 mg INHALATION RT-Q4H [facility] Last Admin: 01/17/23 03:57 Dose: 2.5 mg Artificial Tears (Artificial Tears-Hypromellose Drops 15 Ml Btl) 2 drops BOTH EYES QID PRN PRN Reason: Dry Eye(s) Budesonide (Budesonide 1 Mg/2 Ml Nebu) 1 mg INHALATION RT-BID [facility] Last Admin: 01/16/23 20:30 Dose: 1 mg Carvedilol (Carvedilol 12.5 Mg Tab) 12.5 mg PO BID-W/MEALS [facility] Last Admin: 01/16/23 16:54 Dose: 12.5 mg Chlorhexidine Gluconate (Chlorhexidine Gluconate 15 Ml Cup) 15 ml MUCOUS MEM BID [facility] Last Admin: 01/16/23 20:41 Dose: 15 ml Dextrose/Water (Dextrose 50% Syringe 50 Ml) 25 ml IVP PER PROTOCOL PRN; Protocol PRN Reason: Hypoglycemia Dextrose/Water (Dextrose 50% Syringe 50 Ml) 50 ml IVP PER PROTOCOL PRN; Protocol PRN Reason: Hypoglycemia Duloxetine HCl (Duloxetine Hcl 30 Mg Capsule.Dr) 30 mg PO DAILY@0600 [facility] Last Admin: 01/16/23 03:38 Dose: Not Given Formoterol Fumarate (Formoterol Fumarate 20 Mcg/2 Ml Nebu) 20 mcg INHALATION RT-BID [facility] Last Admin: 01/16/23 20:30 Dose: 20 mcg Furosemide (Furosemide 10 Mg/Ml 2 Ml Vial) 20 mg IV DAILY [facility] Last Admin: 01/16/23 08:34 Dose: 20 mg Heparin Sodium (Porcine) (Heparin Sodium,Porcine/Pf 5,000 Unit/0.5 Ml Syringe) 5,000 unit SQ Q12HR [facility] Last Admin: 01/16/23 20:41 Dose: 5,000 unit Sodium Chloride (Saline 0.9%) 1,000 mls @ 20 mls/hr IV .Q24H [facility] Last Admin: 01/16/23 16:55 Dose: 20 mls/hr Propofol 1,000 mg/ IV Solution 100 mls @ 10.452 mls/hr IV .Q9H35M [facility]; Protocol Last Titration: 01/16/23 22:00 Dose: 40 mcg/kg/min, 20.904 mls/hr Norepinephrine Bitartrate 4 mg (/ Sodium Chloride) 254 mls @ 9.956 mls/hr IV .Q24H [facility]; Protocol Last Admin: 01/16/23 10:05 Dose: Not Given Fentanyl Citrate 1,000 mcg/ (Sodium Chloride) 100 mls @ 8.8 mls/hr IV .[id number] [facility] Last Admin: 01/16/23 18:45 Dose: 1 mcg/kg/hr, 8.8 mls/hr Clevidipine 25 mg/ IV Solution 50 mls @ 2 mls/hr IV .Q24H [facility]; Protocol Last Admin: 01/16/23 12:01 Dose: Not Given Insulin Aspart (Insulin Aspart (Novolog) 100 Unit/Ml Vial) 0 unit SQ Q4H [facility]; Protocol Last Admin: 01/17/23 04:46 Dose: Not Given Insulin Aspart (Insulin Aspart (Novolog) 100 Unit/Ml Vial) 5 unit SQ Q4H [facility] Last Admin: 01/16/23 23:45 Dose: Not Given Insulin Detemir (Insulin Detemir (Levemir) 100 Unit/Ml Syr) 20 unit SQ BID@0700,2100 [facility] Last Admin: 01/16/23 20:43 Dose: 20 unit Ipratropium [place] (Ipratropium 0.5 Mg/2.5 Ml Nebu) 0.5 mg INHALATION RT-Q4H [facility] Last Admin: 01/17/23 03:57 Dose: 0.5 mg Lactulose (Lactulose 20 Gm/30 Ml Cup) 20 gm PO BID [facility] Last Admin: 01/16/23 20:41 Dose: 20 gm Methylprednisolone Sodium Succinate (Methylprednisolone Sod Succi 125 Mg/2 Ml Vial) 60 mg IV Q6HR [facility] Last Admin: 01/16/23 23:48 Dose: 60 mg Miscellaneous Information (Potassium Replacement Protocol 1 Each Misc) 1 each MISCELLANE DAILY PRN; Protocol PRN Reason: Per Protocol Miscellaneous Information (Magnesium Replacement Protocol 1 Each Misc) 1 each MISCELLANE DAILY PRN; Protocol PRN Reason: Per Protocol Montelukast Sodium (Montelukast 10 Mg Tab) 10 mg PO [facility] Last Admin: 01/16/23 20:44 Dose: 10 mg Naloxone HCl (Naloxone 0.4 Mg/Ml 1 Ml Vial) 0.2 mg IV Q2M PRN PRN Reason: Opioid Reversal Duoneb ([id number] (/Ipratropium0.5mg)) 1 each INHALATION RT-QID [facility] Last Admin: 01/09/23 16:12 Dose: 1 each Pantoprazole Sodium (Pantoprazole 40 Mg/10 Ml Vial) 40 mg IVP BID [facility] Last Admin: 01/16/23 20:41 Dose: 40 mg Ropinirole HCl (Ropinirole Hcl 4 Mg Tablet) 4 mg PO [facility] Last Admin: 01/16/23 20:43 Dose: 4 mg Theophylline (Theophylline 24 Hour 400 Mg Cap.Er.24h) 400 mg PO DAILY@0600 [facility] Last Admin: 01/16/23 04:00 Dose: Not Given Tobramycin/Dexamethasone (Tobra-Dexamet 0.3-0.1% Ophth Drops 2.5 Ml Btl) 2 drops RIGHT EYE Q4HR [facility] Last Admin: 01/16/23 23:46 Dose: Not Given Verapamil HCl (Verapamil 40 Mg Tab) 40 mg PO TID [facility] Last Admin: 01/16/23 20:42 Dose: 40 mg Physical exam : GENERAL: The patient is on mechanical vent with an FI02 of 40% and peep is 5. Sedated. Well developed, well nourished. obese HEENT: Pupils are round and equally reacting to light. EOMI. No scleral icterus. No conjunctival pallor. Normocephalic, atraumatic. No pharyngeal erythema. No thyromegaly. CARDIOVASCULAR: S1 and S2 muffled PULMONARY: diminished breath sounds bilaterally with course rhonchi wheezes, and faint crackles noted at the bases ABDOMEN: Soft, nontender, obese. nondistended, normoactive bowel sounds. No palpable organomegaly. MUSCULOSKELETAL: No joint swelling or deformity. EXTREMITIES: No cyanosis, clubbing, or pedal edema. NEUROLOGICAL: unable to assess, on sedation of propofol and fentanyl SKIN: No rashes. no petechiae. Assessment: Acute COPD exacerbation Acute on chronic hypoxic respiratory failure patient is normally at home on 3 L nasal cannula, now requriing mechanical ventilation on 01/09/2023 Acute respiratory acidosis Steroid-induced hyperglycemia Altered mental status possibly secondary to C02 narcosis sepsis, doubt septic shock, sepsis mostly due to hypovolemia and hypotension, requiring pressor support, now off pressor support Acute on chronic hypercapnic respiratory failure Chronic leukocytosis History of COVID-19 pneumonia Benign essential hypertension History of rheumatoid osteoarthritis Chronic back pain Former smoker Full code Plan: Recommend to continue with current medications and Patient continues on mechanical vent with an FI02 of 40% and peep of 5 and being closely monitored in the ICU. Continued on IV steroids and breathing inhalational treatments. recommend monitoring blood sugars before meals at bedtime and continuing with sliding scale and long-acting. Currently undergoing sedation trials to monitor mental status was breathing trials although failing miserably per pulmonary. Per nursing staff patient does follow commands off sedation Pulmonary following closely and will attempt weaning trials mode for further evaluation with no plans for weaning at this time. Spontaneous breathing trials have been failed miserably and pulmonary is recommending PEG and trach placement. Discuss further with family is Gen. surgery is following in the event they want to proceed with PEG and trach Recommend chest x-ray in the a.m. Due to multiple complex medical issues, overall prognosis is extremely poor and guarded The impression and plan of care has been dictated by Teresa Portillo, Nurse Practitioner as directed. Dr. Durga MD I have performed a history and examination and MDM of this patient, discussed the same with the dictator, and agree with the dictator's assessment and plan as written ,documented as a scribe. Based on total visit time, I have performed more than 50% of the visit. Objective - Vital Signs Vital signs: Vital Signs Temp 97.9 F 01/16/23 08:00 Pulse 60 01/16/23 09:00 Resp 16 01/16/23 09:00 BP 147/86 01/13/23 09:03 Pulse Ox 91 L 03/21/23 09:00 FiO2 40 01/16/23 09:00 Intake & Output 01/15/23 01/16/23 01/16/23 18:59 06:59 18:59 Intake Total 824.942 987.012 Output Total 800 530 Balance 24.942 457.012 Weight 90.5 kg 91.9 kg Intake: IV 156 169 ARTERIAL LINE. 36 39 Sodium Chloride 0.9% 1, 120 130 000 ml @ 20 mls/hr IV . Q24H [facility] Rx#:[id number] Intake, IV Titration 278.942 403.012 Amount Clevidipine Butyrate 25 0.667 49.333 mg In Empty Bag 1 bag @ 1 MG/HR 2 mls/hr IV .Q24H [facility] Rx#:[id number] Sodium Chloride 0.9% 80 95.92 100 ml @ 1 MCG/KG/HR 8.8 mls/ hr IV .[id number] [facility] with fentaNYL (PF) 1,000 mcg Rx#:[id number] propofoL 1,000 mg In 182.355 253.679 Empty Bag 1 bag @ 20 MCG/ KG/MIN 10.452 mls/hr IV . Q9H35M [facility] Rx#:[id number] Tube Feeding 300 325 Other 90 90 Output: Urine 800 530 Other: Voiding Method Indwelling Catheter Indwelling Catheter ABP, PAP, CO, CI - Last Documented Arterial Blood Pressure 102/28 - Labs CBC & Chem 7: 01/17/23 04:50 01/17/23 04:50 Labs: Abnormal Lab Results - Last 24 Hours (Table) 01/15/23 01/15/23 01/15/23 Range/Units 09:06 12:34 20:24 WBC (3.8-10.6) k/uL RBC (3.80-5.40) m/uL Hgb (11.4-16.0) gm/dL ABG pH (7.35-7.45) ABG pCO2 (35-45) mmHg ABG pO2 (83-108) mmHg ABG HCO3 (21-25) mmol/L ABG Total CO2 (19-24) mmol/L Carbon Dioxide (22-30) mmol/L BUN (7-17) mg/dL Glucose (74-99) mg/dL POC Glucose (mg/dL) 132 H 147 H 168 H (70-110) mg/dL Calcium (8.4-10.2) mg/dL 01/15/23 01/16/23 01/16/23 Range/Units 23:42 03:36 04:05 WBC (3.8-10.6) k/uL RBC (3.80-5.40) m/uL Hgb (11.4-16.0) gm/dL ABG pH 7.47 H (7.35-7.45) ABG pCO2 54 H (35-45) mmHg ABG pO2 71 L (83-108) mmHg ABG HCO3 39 H (21-25) mmol/L ABG Total CO2 41 H (19-24) mmol/L Carbon Dioxide (22-30) mmol/L BUN (7-17) mg/dL Glucose (74-99) mg/dL POC Glucose (mg/dL) 137 H 122 H (70-110) mg/dL Calcium (8.4-10.2) mg/dL 01/16/23 01/16/23 01/16/23 Range/Units 05:05 05:05 08:27 WBC 16.5 H (3.8-10.6) k/uL RBC 3.52 L (3.80-5.40) m/uL Hgb 11.1 L (11.4-16.0) gm/dL ABG pH (7.35-7.45) ABG pCO2 (35-45) mmHg ABG pO2 (83-108) mmHg ABG HCO3 (21-25) mmol/L ABG Total CO2 (19-24) mmol/L Carbon Dioxide 35 H (22-30) mmol/L BUN 42 H (7-17) mg/dL Glucose 138 H (74-99) mg/dL POC Glucose (mg/dL) 140 H (70-110) mg/dL Calcium 8.3 L (8.4-10.2) mg/dL Microbiology - Last 24 Hours (Table) 01/09/23 12:30 Blood Culture - Final Blood No Growth after 144 hours 01/09/23 12:43 Blood Culture - Final Blood No Growth after 144 hours
[2023-01-17 06:06] LABS: ABG Base Excess 15.1 mmol/L; ABG HCO3 39 mmol/L (21-25); ABG Oxygen Saturation 91.3 % (94-97); ABG PCO2 56 mmHg (35-45); ABG PH 7.45 (7.35-7.45); ABG PO2 61 mmHg (83-108); ABG TCO2 41 mmol/L (19-24); Allen Test Performed? Yes
[2023-01-17] MEDS: carvediloL 12.5 MG TAB PO SCH ×2 (06:59→17:49)
[2023-01-17] MEDS: BUDESONIDE 1 MG/2 ML NEBU INHALATION SCH ×2 (07:40→19:34)
[2023-01-17] MEDS: FORMOTEROL FUMARATE 20 MCG/2 ML NEBU INHALATION SCH ×2 (07:40→19:34)
[2023-01-17] MEDS: VERAPAMIL 40 MG TAB PO SCH ×3 (08:05→21:25)
[2023-01-17] MEDS: FUROSEMIDE 10 MG/ML 2 ML VIAL IV SCH (08:05)
[2023-01-17] MEDS: CHLORHEXIDINE GLUCONATE 15 ML CUP MUCOUS MEM SCH ×2 (08:06→20:46)
[2023-01-17] MEDS: HEPARIN SODIUM,PORCINE/PF 5,000 UNIT/0.5 ML SYRINGE SQ SCH ×2 (08:06→20:49)
[2023-01-17] MEDS: INSULIN DETEMIR (LEVEMIR) 100 UNIT/ML SYR SQ SCH ×2 (08:06→20:50)
[2023-01-17] MEDS: PANTOPRAZOLE 40 MG/10 ML VIAL IVP SCH ×2 (08:06→20:49)
[2023-01-17] MEDS: LACTULOSE 20 GM/30 ML CUP PO SCH ×2 (08:06→20:46)
[2023-01-17 08:12] LABS: Glucose,Whole Blood 217 mg/dL (70-110)
[2023-01-17] MEDS ORDERED: FUROSEMIDE 10 MG/ML 4 ML VIAL IV STA (09:09)
[2023-01-17] MEDS: NOREPINEPHRINE 4 MG in SODIUM CHLORIDE 0.9% 250 ML IV SCH (10:03)
[2023-01-17] MEDS: CLEVIDIPINE BUTYRATE 25 MG in EMPTY BAG 1 BAG IV SCH (10:40)
--- NOTE | 2023-01-17 11:14 | P.PN ---
Subjective Progress Note Date: 01/17/23 Principal diagnosis: Respiratory failure. Reevaluated today on 01/11/2023, patient remains intubated and mechanically ventilated. She is on assist control rate of 16 tidal volume 450 FiO2 50% and PEEP of 5 ABG showed a pO2 of 95 pCO2 56 pH of 7.41, I cut down her FiO2 to 45%. Patient remains on propofol at 35 mcg/kg/m she is also on vitamin HP/enteral feeding at 30 mL per hour, and she is on IV fluid to KVO. Patient remains sedated, he is hemodynamically stable, not requiring any pressors. Remains on GI and DVT prophylaxis, antibiotics have been discontinued since all the cultures have been negative including blood cultures and sputum cultures so far. Patient was on cefepime which I will discontinue. Chest x-ray showed tiny right-sided pleural effusion and left pleural effusion with bibasilar atelectasis, no clear-cut evidence of pneumonia CBC is normal and basic metabolic is unremarkable Reevaluated today on 01/12/2023, patient remains in the ICU, intubated and mechanically ventilated. Patient is on assist control rate of 16 tidal volume 450 FiO2 45% and PEEP of 5 ABG showed a pO2 of 78 pCO2 of 50 pH of 7.47, FiO2 was cut down to 40%. Remains on propofol at 20 mcg/kg/m, not requiring any pressors, she is on vital HP/for enteral nutritional support. It is at 35 mL per hour. Patient is maintaining good urine output, she is on IV fluid at 75 mL per hour. Today the patient was given a short trial of pressure support of 12 and CPAP, did not do well, and she was moving very small tidal volumes and noted to be tachypneic on physical examination she did have scattered rhonchi and wheezes. Patient is obviously not ready for any weaning trials or extubation at this point. Chest x-ray continues to show small bilateral effusions with a right basilar atelectasis. Blood cultures have been negative and sputum cultures have been negative showing mostly normal respiratory patricia, has antibiotics have been discontinued. Patient remains mostly on bronchodilators, is also on GI and DVT prophylaxis Reevaluated today on 01/13/2023, patient remains in the ICU, intubated and mechanically ventilated. She is on assist control rate of 16 tidal volume 450 FiO2 40% and PEEP of 5 ABG showed a pO2 of 70 pCO2 52 pH of 7.47 hence no change was made in her ventilator settings. Patient remains on propofol at 20 mcg/kg/m IV fluid at KVO vital HP at 25 mL per hour not requiring any pressors. However the patient became extremely agitated yesterday in spite of maximal dose of propofol hence I started the patient on fentanyl at 0.5 mcg/kg per hour. And sh e remains on fentanyl propofol was cut down to 40 mics per kilo per minute. Chest x-ray is basically the same showing some bibasilar atelectasis especially at the right base. And small pleural effusions. WBC count is 7.1 hemoglobin 11.2 electrolytes are normal bicarb is 39, renal profile is normal blood sugar is 247 Reevaluated today on 01/14/2023, patient remains in the ICU, intubated and mech anically ventilated. She is on assist control rate of 16 tidal volume 450 FiO2 40% PEEP of 5 ABG showed a pO2 of 69 pCO2 58 pH of 7.43. Patient is still on propofol at 45 mcg/kg/m she is also on fentanyl 0.5 mics per kilo per hour receiving vital HP at 25 mL per hour. On lower doses of sedation, the patient seems to be appropriate according to the nurses, and follows simple instructions. However the patient continues to have significant abnormal lung findings with diffuse rhonchi and wheezes bilaterally, I feel the patient is not given be able to wean easily considering his severe underlying COPD, [facility] Dr. Burgess for possible tracheostomy and PEG tube placement in the next 24-48 hours. In the meantime I will continue present supportive care measures. And continue present treatment plan. WBC count is 8.8 hemoglobin is 11.1. Basic metabolic profile is normal renal profile is normal, chest x-ray continues to show small bilateral pleural effusions and right lower lobe atelectasis, again strongly doubt pneumonia. Progress note dated 01/15/2023. 67-year-old female well-known to our service. She has a history of severe/end- stage oxygen-dependent COPD. She was admitted to the hospital on January 04 with respiratory failure and COPD exacerbation. She was intubated and mechanically ventilated on January 09. The patient currently is on volume assist control, rate 16, tidal volume 450, FiO2 40%, and PEEP of 5. Blood gases show pO2 78, pCO2 56, and a pH is 7.45. At 50 mcg/kg/m, and fentanyl at 1 mcg/kg/h. The patient's also getting saline at 10 mL an hour, and vital high protein at 25 mL an hour, which is goal. The patient will have a daily interruption of sedation today, on a pressure support of a CPAP of 5. The patient's peak airway pressures 43, and plateau pressure is 27. Such a large difference between the peak and plateau, the patient is likely not to be extubated today. White count 10.9, hemoglobin 11.2, hematocrit 34.1, with a normal platelet count. Sodium 137, potassium 4.5, chlorides 99, CO2 37, BUN 40, creatinine 0.65. Chest x-ray shows some cardiomegaly, and mild interstitial changes, possibly related to interstitial edema. Progress note dated 01/16/2023. 67-year-old female well-known to our service. She has a history of severe end- stage COPD. She was admitted to the hospital on January 04. At that time she had respiratory failure with COPD exacerbation. She required intubation on January 09. For the last 2 days we attempted a daily interruption of sedation, and spontaneous breathing trial. Unfortunately, she failed miserably, within minutes. Hence, it is likely that we will proceed with tracheostomy and PEG tub e placement. The patient is on volume assist control, rate 16, tidal volume 450, FiO2 40%, and PEEP of 5. PO2 71, pCO2 of 54, and pH is 7.47. The patient's currently on fentanyl, 1 mcg/kg/h, propofol 50 mcg/kg/m, and saline at KVO. The patient is getting vital high protein at goal, which is 25 mL an hour. Yesterday, she failed her SBT, after 2 minutes. White count 16.5, hemoglobin 11.1, hematocrit 34.5, and platelet count 206,000. Sodium 138, potassium 4.3, chlorides 98, CO2 35, BUN 42, creatinine 0.73. Microbiologic sampling is negative. Chest x-ray shows patchy and/or atelectasis. Progress note dated 01/17/2023. 67-year-old female with history of severe COPD. Her COPD is end stage. She was admitted to the hospital on January 04, for respiratory failure and COPD exacerbation. She got worse, and was intubated on January 09. She's been ventilated since. For the last 3 days, we did a daily interruption of sedation with a spontaneous breathing trial, and she did very poorly on all 3 attempts. Therefore, I think she is a candidate for tracheostomy and PEG tube placement. I did have a conversation with her sister yesterday, and her sister wanted to give her 1 additional attempt, today. She failed her trial today. The patient is on the volume assist control, rate 16, tidal volume 450, FiO2 40%, and PEEP of 5. Arterial blood gases show a PaO2 of 61, pCO2 of 56, and pH is 7.45. The patient is receiving saline at 10 mL an hour, propofol at 50 mcg/kg/m, fentanyl at 1 mcg/kg/h, and vital high protein at 25 mL an hour, which is goal. The patient will receive Lasix 40 mg IV push once, prior to her weaning trial. White count 13.7, within normal hemoglobin, hematocrit, and platelet count. Sodium 136, potassium 4.3, chlorides 97, CO2 35, BUN 41, and creatinine 0.66. Microbiology sampling has been negative. Chest x-ray shows a small right-sided pleural effusion, and some basilar atelectasis or infiltrate at the right base. Objective - Vital Signs Vital signs: Vital Signs Temp 97.4 F L 01/17/23 08:00 Pulse 88 01/17/23 11:05 Resp 15 01/17/23 11:05 BP 147/86 01/17/23 11:00 Pulse Ox 88 L 01/17/23 11:00 FiO2 40 01/17/23 10:47 Intake & Output 01/16/23 01/17/23 01/17/23 18:59 06:59 18:59 Intake Total 917.556 818.849 217.678 Output Total 975 410 840 Balance -57.444 408.849 -622.322 Weight 93.5 kg Intake: IV 143 153 53 ARTERIAL LINE. 33 33 3 Sodium Chloride 0.9% 1, 110 120 50 000 ml @ 20 mls/hr IV . Q24H [facility] Rx#:[id number] Intake, IV Titration 409.556 275.849 89.678 Amount Clevidipine Butyrate 25 3.667 mg In Empty Bag 1 bag @ 1 MG/HR 2 mls/hr IV .Q24H [facility] Rx#:[id number] Sodium Chloride 0.9% 80 162.653 98.853 ml @ 1 MCG/KG/HR 8.8 mls/ hr IV .[id number] [facility] with fentaNYL (PF) 1,000 mcg Rx#:[id number] propofoL 1,000 mg In 246.903 176.996 86.011 Empty Bag 1 bag @ 20 MCG/ KG/MIN 10.452 mls/hr IV . Q9H35M [facility] Rx#:[id number] Tube Feeding 275 300 75 Other 90 90 Output: Urine 975 410 840 Other: Voiding Method Indwelling Catheter Indwelling Catheter Indwelling Catheter ABP, PAP, CO, CI - Last Documented Arterial Blood Pressure 168/68 - Exam No acute distress, currently sedated, with an orally placed endotracheal tube. HEENT examination is grossly unremarkable. Neck supple. Full range of motion. No adenopathy thyromegaly or neck vein distention. Cardiovascular examination reveals regular rhythm rate. S1-S2 normal. No S3 or S4. No discernible murmur noted. Heart rate about 88 bpm. Heart sounds are distant. Lungs reveal expiratory rhonchi and wheezes. Breath sounds equal. Saturations are 90 %. Abdomen soft with bowel sounds, and without masses or tenderness. Extremities are intact. No cyanosis clubbing or edema. Skin is without rash or lesion. Neurologic examination cannot be adequately assessed at this time. - Labs CBC & Chem 7: 01/17/23 04:50 01/17/23 04:50 Labs: Abnormal Lab Results - Last 24 Hours (Table) 01/16/23 01/16/23 01/16/23 Range/Units 11:56 16:49 19:50 WBC (3.8-10.6) k/uL Neutrophils # (1.3-7.7) k/uL Lymphocytes # (1.0-4.8) k/uL ABG pCO2 (35-45) mmHg ABG pO2 (83-108) mmHg ABG HCO3 (21-25) mmol/L ABG Total CO2 (19-24) mmol/L ABG O2 Saturation (94-97) % Sodium (137-145) mmol/L Chloride (98-107) mmol/L Carbon Dioxide (22-30) mmol/L BUN (7-17) mg/dL Glucose (74-99) mg/dL POC Glucose (mg/dL) 135 H 121 H 113 H (70-110) mg/dL Calcium (8.4-10.2) mg/dL 01/16/23 01/17/23 01/17/23 Range/Units 23:44 04:03 04:50 WBC 13.7 H (3.8-10.6) k/uL Neutrophils # 13.0 H (1.3-7.7) k/uL Lymphocytes # 0.3 L (1.0-4.8) k/uL ABG pCO2 (35-45) mmHg ABG pO2 (83-108) mmHg ABG HCO3 (21-25) mmol/L ABG Total CO2 (19-24) mmol/L ABG O2 Saturation (94-97) % Sodium (137-145) mmol/L Chloride (98-107) mmol/L Carbon Dioxide (22-30) mmol/L BUN (7-17) mg/dL Glucose (74-99) mg/dL POC Glucose (mg/dL) 135 H 165 H (70-110) mg/dL Calcium (8.4-10.2) mg/dL 01/17/23 01/17/23 01/17/23 Range/Units 04:50 05:51 08:10 WBC (3.8-10.6) k/uL Neutrophils # (1.3-7.7) k/uL Lymphocytes # (1.0-4.8) k/uL ABG pCO2 56 H (35-45) mmHg ABG pO2 61 L (83-108) mmHg ABG HCO3 39 H (21-25) mmol/L ABG Total CO2 41 H (19-24) mmol/L ABG O2 Saturation 91.3 L (94-97) % Sodium 136 L (137-145) mmol/L Chloride 97 L (98-107) mmol/L Carbon Dioxide 35 H (22-30) mmol/L BUN 41 H (7-17) mg/dL Glucose 196 H (74-99) mg/dL POC Glucose (mg/dL) 217 H (70-110) mg/dL Calcium 8.1 L (8.4-10.2) mg/dL Assessment and Plan Assessment: Acute on chronic hypoxemic and hypercapnic respiratory failure, requiring intubation on 01/09/2023, with failure to wean from mechanical ventilation, alma pite numerous daily interruption of sedation, and spontaneous breathing trials. Possible underlying sepsis, with hypotension. Severe end-stage COPD. Chronic hypercapnic respiratory failure. History of left upper lobe nodule. Previous history of coronavirus associated pneumonia. Benign essential hypertension. History of rheumatoid arthritis. Chronic back pain. Prior history of tobacco use. Cushingoid habitus, secondary to chronic steroids. Gen. medical debility. Plan: Plan dated 01/15/2023. Labs, x-rays, and medications are reviewed. The patient may not be weaned and mobile at this point, given the large difference between the peak airway pressure, and a plateau pressure. We will attempt a daily interruption of sedation, and a spontaneous breathing trial. Family wants to hold off on the tracheostomy and PEG tube at this time, to see if the patient is possibly able to come off the ventilator. Prognosis remains very guarded. We will continue with GI and DVT prophylaxis. We continue with tube feeds. Arterial blood gases are reasonable. Plan dated 01/16/2023. The patient's doing about the same, she is chronically and critically ill, and his failed her spontaneous breathing trials, for the last 2 days. Labs, x-rays, medications are reviewed. She remains on fentanyl and propofol. She is getting tube feedings. The patient currently is a full code. Apparently her sister is questioning whether or not the patient should have a tracheostomy and PEG tube. We will attempt to talk to the sister. Patient's overall prognosis remains very poor. She is receiving tube feedings. She remains on GI and DVT prophylaxis. Plan dated 01/17/2023. Unfortunately, the patient again failed her spontaneous breathing trial. I spoke with the patient's sister yesterday, and she agreed to give her sister 1 additional attempt, at weaning. Again, she did very poorly. We will proceed with tracheostomy and PEG tube placement. Labs, x-rays, medications are r eviewed. The patient remains on propofol, and fentanyl. She is receiving tube feedings. Blood gases are borderline. We will continue to follow the patient and make recommendations along the way. Prognosis is very guarded. Time with Patient: Greater than 30
[2023-01-17 11:51] LABS: Glucose,Whole Blood 170 mg/dL (70-110)
--- NOTE | 2023-01-17 13:47 | P.PN ---
Subjective Progress Note Date: 01/17/23 CHIEF COMPLAINT: Respiratory failure, malnutrition HISTORY OF PRESENT ILLNESS: Patient is currently in the ICU intubated and on mechanical ventilation. Patient failed today's weaning trial. Patient's family would like to proceed with another weaning trial tomorrow before making decision about tracheostomy and PEG tube placement. Afebrile. WBC 13.7 PHYSICAL EXAM: VITAL SIGNS: Reviewed. GENERAL: Well-developed in no acute distress. ABDOMEN: Soft. Nondistended. Nontender. ASSESSMENT: 1. Respiratory failure 2. Moderate protein calorie malnutrition PLAN: -Patient is tentatively scheduled for tracheostomy and PEG tube placement tomorrow -Awaiting family's consent for procedure -Hold tube feedings after midnight for possible tracheostomy and PEG tube placement Physician C[employer]aker Floor note has been reviewed by physician. Signing provider agrees with the documented findings, assessment, and plan of care. Objective - Vital Signs Vital signs: Vital Signs Temp 98.2 F 01/17/23 12:00 Pulse 71 01/17/23 13:00 Resp 16 01/17/23 13:00 BP 147/86 01/17/23 11:00 Pulse Ox 90 L 01/17/23 13:00 FiO2 40 01/17/23 12:00 Intake & Output 01/16/23 01/17/23 01/17/23 18:59 06:59 18:59 Intake Total 917.556 818.849 337.901 Output Total 975 410 980 Balance -57.444 408.849 -642.099 Weight 93.5 kg Intake: IV 143 153 63 ARTERIAL LINE. 33 33 3 Sodium Chloride 0.9% 1, 110 120 60 000 ml @ 20 mls/hr IV . Q24H [facility] Rx#:[id number] Intake, IV Titration 409.556 275.849 124.901 Amount Clevidipine Butyrate 25 7.534 mg In Empty Bag 1 bag @ 1 MG/HR 2 mls/hr IV .Q24H [facility] Rx#:[id number] Sodium Chloride 0.9% 80 162.653 98.853 ml @ 1 MCG/KG/HR 8.8 mls/ hr IV .[id number] [facility] with fentaNYL (PF) 1,000 mcg Rx#:[id number] propofoL 1,000 mg In 246.903 176.996 117.367 Empty Bag 1 bag @ 20 MCG/ KG/MIN 10.452 mls/hr IV . Q9H35M [facility] Rx#:[id number] Tube Feeding 275 300 150 Other 90 90 Output: Urine 975 410 980 Other: Voiding Method Indwelling Catheter Indwelling Catheter Indwelling Catheter ABP, PAP, CO, CI - Last Documented Arterial Blood Pressure 122/54 - Labs CBC & Chem 7: 01/17/23 04:50 01/17/23 04:50 Labs: Abnormal Lab Results - Last 24 Hours (Table) 01/16/23 01/16/23 01/16/23 Range/Units 16:49 19:50 23:44 WBC (3.8-10.6) k/uL Neutrophils # (1.3-7.7) k/uL Lymphocytes # (1.0-4.8) k/uL ABG pCO2 (35-45) mmHg ABG pO2 (83-108) mmHg ABG HCO3 (21-25) mmol/L ABG Total CO2 (19-24) mmol/L ABG O2 Saturation (94-97) % Sodium (137-145) mmol/L Chloride (98-107) mmol/L Carbon Dioxide (22-30) mmol/L BUN (7-17) mg/dL Glucose (74-99) mg/dL POC Glucose (mg/dL) 121 H 113 H 135 H (70-110) mg/dL Calcium (8.4-10.2) mg/dL 01/17/23 01/17/23 01/17/23 Range/Units 04:03 04:50 04:50 WBC 13.7 H (3.8-10.6) k/uL Neutrophils # 13.0 H (1.3-7.7) k/uL Lymphocytes # 0.3 L (1.0-4.8) k/uL ABG pCO2 (35-45) mmHg ABG pO2 (83-108) mmHg ABG HCO3 (21-25) mmol/L ABG Total CO2 (19-24) mmol/L ABG O2 Saturation (94-97) % Sodium 136 L (137-145) mmol/L Chloride 97 L (98-107) mmol/L Carbon Dioxide 35 H (22-30) mmol/L BUN 41 H (7-17) mg/dL Glucose 196 H (74-99) mg/dL POC Glucose (mg/dL) 165 H (70-110) mg/dL Calcium 8.1 L (8.4-10.2) mg/dL 01/17/23 01/17/23 01/17/23 Range/Units 05:51 08:10 11:50 WBC (3.8-10.6) k/uL Neutrophils # (1.3-7.7) k/uL Lymphocytes # (1.0-4.8) k/uL ABG pCO2 56 H (35-45) mmHg ABG pO2 61 L (83-108) mmHg ABG HCO3 39 H (21-25) mmol/L ABG Total CO2 41 H (19-24) mmol/L ABG O2 Saturation 91.3 L (94-97) % Sodium (137-145) mmol/L Chloride (98-107) mmol/L Carbon Dioxide (22-30) mmol/L BUN (7-17) mg/dL Glucose (74-99) mg/dL POC Glucose (mg/dL) 217 H 170 H (70-110) mg/dL Calcium (8.4-10.2) mg/dL
--- NOTE | 2023-01-17 14:32 | P.PN ---
Subjective Progress Note Date: 01/17/23 This is a pleasant 67 years old female with past medical history of advanced COPD advanced COPD on home oxygen dependent on 3-4 L at all times, obstructive sleep apnea CPAP dependent nightly, diastolic CHF hypertension, iron deficiency anemia, rheumatoid arthritis, and chronic back pain who presented to the ER because of worsening shortness of breath for a few days duration Patient currently is lying in bed in the emergency room 6, with BiPAP machine on with parameters of 15/6, FiO2 of 40%. Patient is tachypneic breathing with direct about 34-37. Patient looks tired and she could not provide much information, she cannot talk but she is awake and oriented. She follows commands. She has minimal chest movement with expiratory wheezing. She denies any pain, no chest pain she denies any GI or urinary symptoms. She moves all extremities symmetrically. vitals reviewed and patient is afebrile. Mild Leukocytosis of 12.2, Mild Thrombocytopenia 127. Hemoglobin Normal. INR 0.9. VBG Showing High PCO2 of 84, Low pH of 7.3. BNP showing high carbon dioxide at 49, creatinine normal. Liver enzymes not elevated. Troponin negative. ProBNP is 301. Glucose 128. Chest x-ray reviewed by myself showing enlarged heart with COPD changes. Minimal chest congestion. Patient started on dexamethasone, albuterol. EKG showing normal sinus rhythm at [address]-T changes. 01/05/2023 Patient remains in the ICU, she required BiPAP all the ninth yesterday except for one hour she got some rest. Today patient showed significant improvement, she is more alert awake, pleasant. Her mentation is back to normal. Her breathing is also improving with decrease respiratory rate into 18-20, per to more than 30 yesterday. Repeat chest x-ray looks similar findings to yesterday with no obvious infiltrate or consolidation. The heart is mildly enlarged, just x-ray reviewed by myself. Other vitals and labs looks stable. pro-calcitonin is slightly elevated at 0.20 She is currently receiving IV Solu-Medrol 60 mg as well as broad-spectrum antibiotics with vancomycin and cefepime Until doxycycline. Also she is on IV Lasix daily. 01/06/2023 pt today is significantly improved , she can talk easily off the bipap machine in the moring although she was using all night, she requires few liter of oxgyen per min like 4 only Because of significant improvement and she was moved out of the ICU Her treatment was the risk related, antibiotics vancomycin and doxycycline were stopped and Cefepime. IV Lasix Switched to Oral Dose of 40 Mg Daily. While She Kept on High Dose of IV Solu-Medrol 60 Mg. 01/07/2023 Patient today having some more breathing difficulty compared to yesterday however she still looks greatly although she still have some wheezing. She is saturating 90s on 4 L oxygen via nasal cannula, no much of accessory muscles and she can talk more freely. Her chest x-ray today showing worse than admission when I reviewed it but most likely this is because of the technique. She remains on IV Solu-Medrol, 60 mg. Cefepime, oral Lasix 40 mg daily. Patient did not need BiPAP last night. Patient wants to keep the [place] cath in Place because it's harder for her to get up 01/08/2023 Patient seen and evaluated in follow-up today with pulmonary following closely. Patient is continued on 4 L via nasal cannula as well as BiPAP. Patient continues on oral steroids along with inhalers and cefepime. Patient was started on cefepime empirically for concerns of pneumonia. Patient continues to be extremely dyspneic with minimal exertion and would recommend weaning FiO2 as tolerated. Patient normally wears a CPAP and has one for the outpatient setting although would recommend continuing with BiPAP especially at night from 8 PM to 6 AM. Continue BiPAP as needed as well. Patient extremely weak and has been progressively getting more weak with each admission. Patient has been hospitalized very frequently most recently and clinically very slow to improve. Case management following as there will be plans to return to rehab or possible inpatient rehab. Will await PT/OT therapy evaluation. Patient is currently afebrile denies chest pain or palpitations. Patient reports she is tolerating diet with no reports of nausea or vomiting noted. 01/09/2023 Patient is seen and evaluated in follow up today and per nursing staff was found this morning with her oxygen and BIpap mask off and O2 saturations in the 60's. Patient was placed back on bipap and numbers improved slightly although continued to be restless, combative, and not following commands. Ordered ativan to calm and was not effective. Patient extremely dyspneic and tachypneic and working with accessory muscle use. Luckily, pulmonary was rounding on the unit and ordered transfer to ICU for possible intubation and close monitoring. Patient is afebrile and continued on cefepime empirically and sputum cultures ordered. continued on breathing treatments as well as oral prednisone. 01/10/2023 Patient is seen in follow up today and continues to be in the ICU in critical condition. Patient continues on mechanical ventilation with an FI02 of 50% and peep is 5. Patient was off pressor support and off propofol and not tolerating with no plans for weaning off the vent at this time. Peg and tracheostomy is being considered in the next few days possibly. Patient overall prognosis is extremely poor and guarded at this time. PICC line is being ordered and pending. Patient is also continued on empiric antibiotics and awaiting cultures. Patient also placed back on IV steroids per pulmonary. Patient is afebrile. 01/11/2023 Patient is seen and evaluated in follow-up today continues to be in the MICU with pulmonary prop sawyer following closely. Patient remains on mechanical ventilation working on weaning FiO2 as tolerated. FiO2 is currently at 45% with a PEEP of 5 and undergoing sedation holidays with no plans of weaning at this time. Patient was continued on Cefepime although cultures are negative and blood cultures remain negative will discontinue cefepime. Patient is continued on tube feeds and blood sugar slightly elevated will continue sliding scale and add low-dose long-acting twice daily and continue to monitor Accu-Cheks before meals and at bedtime. Recommend follow-up chest x-ray and labs in the a.m. 01/12/2023 Patient is seen and evaluated continues to be the ICU with sister at the bedside. Patient remains on mechanical ventilation with no plans of weaning at this time. FiO2 being adjusted down to 40% with a PEEP of 5 and patient is tolerating well. Patient is off pressor support as well as antibiotics and being closely monitored. Patient's blood sugars elevated and have added long- acting and will increase in continue to monitor closely. Chest x-ray today shows persistent bilateral effusions right greater than left with patchy densities and atelectasis. Patient is undergoing sedation holidays to monitor mental status. Sister at the bedside and discussed with Juventino and address their questions and concerns to the? Ability. Patient remains afebrile. Patient is continued on tube feeding and tolerating. Overall prognosis remains extremely g uarded. 01/13/2023 Patient is evaluated today continues to be in the ICU and undergoing weaning tri als of sedation and had CPAP trial yesterday and did not tolerate well became increasingly agitated on maximum propofol requiring sentinel. Propofol being titrated down. Patient continues off pressor support. Patient is maintained of IV antibiotics and is continued on IV steroids along with breathing treatments. Patient being started on lactulose unknown last bowel movement. Recommend daily chest x-rays and follow-up labs. Recommend to replace electrolytes per protocol. Blood sugars remain elevated and tolerating tube feeds and will continue sliding scale and increased long-acting to 20 units twice daily. Recommend Accu-Cheks before meals and at bedtime. 01/14/2023 Patient is seen in follow-up continues to be in the ICU maintained on mechanical ventilation with an FiO2 of 40% and PEEP is 5. No plans for trials of weaning today other than mild sedation holiday to assess mentation. Per nursing staff patient is following commands off sedation although does get quite restless and hypertensive and symptomatic no plans for sedation holiday today. Patient is continued on propofol and fentanyl and will continue. Patient is monitored off IV antibiotics and cultures have remained negative. Patient's blood sugars elevated and will add increased insulin covered and continue with current regimen. Pulmonary has consulted general surgery for possible tracheostomy and PEG tube placement and awaiting family decision and consent. 01/15/2023 The patient was seen and evaluated continues to be in the ICU under critical condition. Patient remains on mechanical ventilation with an FiO2 of 40% and PEEP is 5. Working on weaning trials in terms of sedation to monitor mentation with no plans of weaning from mechanical plan at this time. There were plans for possible PEG and trach this morning although family would like a few more days to see if patient is able to wean off the vent. Per pulmonary will attempt CPAP trials and assess for weaning. Chest x-ray today shows some congestion with no significant difference from previous. Patient is continued on IV Lasix daily along with IV steroids, propofol and fentanyl currently off antibiotic and pressor support. Prognosis remains extremely critical and guarded at this time. 01/16/2023 Patient is seen and evaluated in follow-up today continues to be in the ICU with overall poor and guarded prognosis. Patient remains on mechanical vent with an FiO2 of 40% and PEEP is 5. Continuing with daily sedation holiday trials and trialing spontaneous breathing trials although patient is feeling miserable. Pulmonary prop sawyer leaning towards PEG and trach placement will need to discuss further with family. Patient is afebrile continued on IV steroids and breathing treatments is receiving IV Lasix daily and being closely monitored with blood sugars. Blood sugars are improved we'll continue current regimen. Patient continued on tube feedings and tolerating. 01/17/2023 Patient is seen and evaluated in follow-up today continues to be on mechanical ventilation with multiple attempts at weaning and breathing trials and failing miserably with pulmonary prop sawyer following recommending PEG and trach placement in general surgery is following and will likely proceed with tracheostomy placement. Tube feedings are being placed on hold with possible intervention tomorrow. Patient continued on IV steroids along with sedation and breathing treatments with no significant change from yesterday. Patient remains on mechanical ventilation with an FiO2 of 40% and PEEP is 5. Patient also continues on propofol and fentanyl and has been off pressor support. Blood sugars were controlled and will continue current regimen. Patient is afebrile and maintained off antibiotics at this time. Cultures have remained negative. Review of systems: unable to obtain as patient is on mechanical vent and sedated All medications have been reviewed Active Medications Acetaminophen (Acetaminophen Tab 500 Mg Tab) 1,000 mg PO Q6HR PRN PRN Reason: Fever and/ or Pain Last Admin: 01/12/23 22:28 Dose: 1,000 mg Albuterol Sulfate (Albuterol Nebulized 2.5 Mg/3 Ml) 2.5 mg INHALATION RT-Q4H [facility] Last Admin: 01/17/23 10:44 Dose: 2.5 mg Artificial Tears (Artificial Tears-Hypromellose Drops 15 Ml Btl) 2 drops BOTH EYES QID PRN PRN Reason: Dry Eye(s) Budesonide (Budesonide 1 Mg/2 Ml Nebu) 1 mg INHALATION RT-BID [facility] Last Admin: 01/17/23 07:40 Dose: 1 mg Carvedilol (Carvedilol 12.5 Mg Tab) 12.5 mg PO BID-W/MEALS [facility] Last Admin: 01/17/23 06:59 Dose: 12.5 mg Chlorhexidine Gluconate (Chlorhexidine Gluconate 15 Ml Cup) 15 ml MUCOUS MEM BID [facility] Last Admin: 01/17/23 08:06 Dose: 15 ml Dextrose/Water (Dextrose 50% Syringe 50 Ml) 25 ml IVP PER PROTOCOL PRN; Protocol PRN Reason: Hypoglycemia Dextrose/Water (Dextrose 50% Syringe 50 Ml) 50 ml IVP PER PROTOCOL PRN; Protocol PRN Reason: Hypoglycemia Duloxetine HCl (Duloxetine Hcl 30 Mg Capsule.Dr) 30 mg PO DAILY@0600 [facility] Last Admin: 01/17/23 06:02 Dose: 30 mg Formoterol Fumarate (Formoterol Fumarate 20 Mcg/2 Ml Nebu) 20 mcg INHALATION RT-BID [facility] Last Admin: 01/17/23 07:40 Dose: 20 mcg Furosemide (Furosemide 10 Mg/Ml 2 Ml Vial) 20 mg IV DAILY [facility] Last Admin: 01/17/23 08:05 Dose: 20 mg Heparin Sodium (Porcine) (Heparin Sodium,Porcine/Pf 5,000 Unit/0.5 Ml Syringe) 5,000 unit SQ Q12HR [facility] Last Admin: 01/17/23 08:06 Dose: 5,000 unit Sodium Chloride (Saline 0.9%) 1,000 mls @ 20 mls/hr IV .Q24H [facility] Last Admin: 01/16/23 16:55 Dose: 20 mls/hr Propofol 1,000 mg/ IV Solution 100 mls @ 10.452 mls/hr IV .Q9H35M [facility]; Protocol Last Admin: 01/17/23 12:46 Dose: 50 mcg/kg/min, 26.13 mls/hr Norepinephrine Bitartrate 4 mg (/ Sodium Chloride) 254 mls @ 9.956 mls/hr IV .Q24H [facility]; Protocol Last Admin: 01/17/23 10:03 Dose: Not Given Fentanyl Citrate 1,000 mcg/ (Sodium Chloride) 100 mls @ 8.8 mls/hr IV .[id number] [facility] Last Admin: 01/17/23 05:59 Dose: 1 mcg/kg/hr, 8.8 mls/hr Clevidipine 25 mg/ IV Solution 50 mls @ 2 mls/hr IV .Q24H [facility]; Protocol Last Titration: 01/17/23 11:16 Dose: 3 mg/hr, 6 mls/hr Insulin Aspart (Insulin Aspart (Novolog) 100 Unit/Ml Vial) 0 unit SQ Q4H [facility]; Protocol Last Admin: 01/17/23 12:30 Dose: 2 unit Insulin Aspart (Insulin Aspart (Novolog) 100 Unit/Ml Vial) 5 unit SQ Q4H [facility] Last Admin: 01/17/23 12:30 Dose: 5 unit Insulin Detemir (Insulin Detemir (Levemir) 100 Unit/Ml Syr) 20 unit SQ BID@0700,2100 [facility] Last Admin: 01/17/23 08:06 Dose: 20 unit Ipratropium [place] (Ipratropium 0.5 Mg/2.5 Ml Nebu) 0.5 mg INHALATION RT-Q4H [facility] Last Admin: 01/17/23 10:44 Dose: 0.5 mg Lactulose (Lactulose 20 Gm/30 Ml Cup) 20 gm PO BID [facility] Last Admin: 01/17/23 08:06 Dose: 20 gm Methylprednisolone Sodium Succinate (Methylprednisolone Sod Succi 125 Mg/2 Ml Vial) 60 mg IV Q6HR [facility] Last Admin: 01/17/23 12:29 Dose: 60 mg Miscellaneous Information (Potassium Replacement Protocol 1 Each Misc) 1 each MISCELLANE DAILY PRN; Protocol PRN Reason: Per Protocol Miscellaneous Information (Magnesium Replacement Protocol 1 Each Misc) 1 each MISCELLANE DAILY PRN; Protocol PRN Reason: Per Protocol Montelukast Sodium (Montelukast 10 Mg Tab) 10 mg PO HS [facility] Last Admin: 01/16/23 20:44 Dose: 10 mg Naloxone HCl (Naloxone 0.4 Mg/Ml 1 Ml Vial) 0.2 mg IV Q2M PRN PRN Reason: Opioid Reversal Duoneb ([id number] (/Ipratropium0.5mg)) 1 each INHALATION RT-QID [facility] Last Admin: 01/09/23 16:12 Dose: 1 each Pantoprazole Sodium (Pantoprazole 40 Mg/10 Ml Vial) 40 mg IVP BID [facility] Last Admin: 01/17/23 08:06 Dose: 40 mg Ropinirole HCl (Ropinirole Hcl 4 Mg Tablet) 4 mg PO HS [facility] Last Admin: 01/16/23 20:43 Dose: 4 mg Theophylline (Theophylline 24 Hour 400 Mg Cap.Er.24h) 400 mg PO DAILY@0600 [facility] Last Admin: 01/17/23 06:02 Dose: 400 mg Tobramycin/Dexamethasone (Tobra-Dexamet 0.3-0.1% Ophth Drops 2.5 Ml Btl) 2 drops RIGHT EYE Q4HR [facility] Last Admin: 01/17/23 12:31 Dose: 2 drops Verapamil HCl (Verapamil 40 Mg Tab) 40 mg PO TID [facility] Last Admin: 01/17/23 08:05 Dose: 40 mg Physical exam : GENERAL: The patient is on mechanical vent with an FI02 of 40% and peep is 5. Sedated. Well developed, well nourished. obese HEENT: Pupils are round and equally reacting to light. EOMI. No scleral icterus. No conjunctival pallor. Normocephalic, atraumatic. No pharyngeal erythema. No thyromegaly. CARDIOVASCULAR: S1 and S2 muffled PULMONARY: diminished breath sounds bilaterally with course rhonchi wheezes, and faint crackles noted at the bases ABDOMEN: Soft, nontender, obese. nondistended, normoactive bowel sounds. No palpable organomegaly. MUSCULOSKELETAL: No joint swelling or deformity. EXTREMITIES: No cyanosis, clubbing, or pedal edema. NEUROLOGICAL: unable to assess, on sedation of propofol and fentanyl SKIN: No rashes. no petechiae. Assessment: Acute COPD exacerbation Acute on chronic hypoxic respiratory failure patient is normally at home on 3 L nasal cannula, now requriing mechanical ventilation on 01/09/2023 Acute respiratory acidosis Steroid-induced hyperglycemia Altered mental status possibly secondary to C02 narcosis sepsis, doubt septic shock, sepsis mostly due to hypovolemia and hypotension, requiring pressor support, now off pressor support Acute on chronic hypercapnic respiratory failure Chronic leukocytosis History of COVID-19 pneumonia Benign essential hypertension History of rheumatoid osteoarthritis Chronic back pain Former smoker Full code Plan: Recommend to continue with current medications and Patient continues on mechanical vent with an FI02 of 40% and peep of 5 and being closely monitored in the ICU. Continued on IV steroids and breathing inhalational treatments. recommend monitoring blood sugars before meals at bedtime and continuing with sliding scale and long-acting. Currently undergoing sedation trials to monitor mental status was breathing trials although failing miserably per pulmonary. Multiple attempts have been made with no success in general surgery following an tube feeds will be placed on hold for possible PEG and trach placement in the next day or so Per nursing staff patient does follow commands off sedation Due to multiple complex medical issues, overall prognosis is extremely poor and guarded The impression and plan of care has been dictated by Teresa Portillo, Nurse Practitioner as directed. Dr. Durga MD I have performed a history and examination and MDM of this patient, discussed the same with the dictator, and agree with the dictator's assessment and plan as written ,documented as a scribe. Based on total visit time, I have performed more than 50% of the visit. Objective - Vital Signs Vital signs: Vital Signs Temp 97.4 F L 01/17/23 08:00 Pulse 57 L 01/17/23 09:00 Resp 16 01/17/23 09:00 BP 147/86 01/17/23 08:00 Pulse Ox 90 L 01/17/23 09:00 FiO2 40 01/17/23 08:00 Intake & Output 01/16/23 01/17/23 01/17/23 18:59 06:59 18:59 Intake Total 917.556 818.849 96.401 Output Total 975 410 30 Balance -57.444 408.849 66.401 Weight 93.5 kg Intake: IV 143 153 13 ARTERIAL LINE. 33 33 3 Sodium Chloride 0.9% 1, 110 120 10 000 ml @ 20 mls/hr IV . Q24H [facility] Rx#:[id number] Intake, IV Titration 409.556 275.849 58.401 Amount Sodium Chloride 0.9% 80 162.653 98.853 ml @ 1 MCG/KG/HR 8.8 mls/ hr IV .[id number] [facility] with fentaNYL (PF) 1,000 mcg Rx#:[id number] propofoL 1,000 mg In 246.903 176.996 58.401 Empty Bag 1 bag @ 20 MCG/ KG/MIN 10.452 mls/hr IV . Q9H35M [facility] Rx#:[id number] Tube Feeding 275 300 25 Other 90 90 Output: Urine 975 410 30 Other: Voiding Method Indwelling Catheter Indwelling Catheter Indwelling Catheter ABP, PAP, CO, CI - Last Documented Arterial Blood Pressure 147/53 - Labs CBC & Chem 7: 01/17/23 04:50 01/17/23 04:50 Labs: Abnormal Lab Results - Last 24 Hours (Table) 01/16/23 01/16/23 01/16/23 Range/Units 11:56 16:49 19:50 WBC (3.8-10.6) k/uL Neutrophils # (1.3-7.7) k/uL Lymphocytes # (1.0-4.8) k/uL ABG pCO2 (35-45) mmHg ABG pO2 (83-108) mmHg ABG HCO3 (21-25) mmol/L ABG Total CO2 (19-24) mmol/L ABG O2 Saturation (94-97) % Sodium (137-145) mmol/L Chloride (98-107) mmol/L Carbon Dioxide (22-30) mmol/L BUN (7-17) mg/dL Glucose (74-99) mg/dL POC Glucose (mg/dL) 135 H 121 H 113 H (70-110) mg/dL Calcium (8.4-10.2) mg/dL 01/16/23 01/17/23 01/17/23 Range/Units 23:44 04:03 04:50 WBC 13.7 H (3.8-10.6) k/uL Neutrophils # 13.0 H (1.3-7.7) k/uL Lymphocytes # 0.3 L (1.0-4.8) k/uL ABG pCO2 (35-45) mmHg ABG pO2 (83-108) mmHg ABG HCO3 (21-25) mmol/L ABG Total CO2 (19-24) mmol/L ABG O2 Saturation (94-97) % Sodium (137-145) mmol/L Chloride (98-107) mmol/L Carbon Dioxide (22-30) mmol/L BUN (7-17) mg/dL Glucose (74-99) mg/dL POC Glucose (mg/dL) 135 H 165 H (70-110) mg/dL Calcium (8.4-10.2) mg/dL 01/17/23 01/17/23 01/17/23 Range/Units 04:50 05:51 08:10 WBC (3.8-10.6) k/uL Neutrophils # (1.3-7.7) k/uL Lymphocytes # (1.0-4.8) k/uL ABG pCO2 56 H (35-45) mmHg ABG pO2 61 L (83-108) mmHg ABG HCO3 39 H (21-25) mmol/L ABG Total CO2 41 H (19-24) mmol/L ABG O2 Saturation 91.3 L (94-97) % Sodium 136 L (137-145) mmol/L Chloride 97 L (98-107) mmol/L Carbon Dioxide 35 H (22-30) mmol/L BUN 41 H (7-17) mg/dL Glucose 196 H (74-99) mg/dL POC Glucose (mg/dL) 217 H (70-110) mg/dL Calcium 8.1 L (8.4-10.2) mg/dL
[2023-01-17] MEDS: POTASSIUM BICARBONATE/CIT AC 20 MEQ TABLET.EFF NG-TUBE SCH ×2 (15:04→16:12)
[2023-01-17 15:58] LABS: Glucose,Whole Blood 122 mg/dL (70-110)
[2023-01-17 20:23] LABS: Glucose,Whole Blood 108 mg/dL (70-110)
[2023-01-17] MEDS: rOPINIRole HCL 4 MG TABLET PO SCH (20:49)
[2023-01-17] MEDS: MONTELUKAST 10 MG TAB PO SCH (20:49)
[2023-01-17] MEDS: SODIUM CHLORIDE 0.9% 1,000 ML IV SCH (21:25)
[2023-01-18] MEDS: methylPREDNISolone SOD SUCCI 125 MG/2 ML VIAL IV SCH ×4 (00:23→18:19)
[2023-01-18] MEDS: TOBRA-DEXAMET 0.3-0.1% OPHTH DROPS 2.5 ML BTL RIGHT EYE SCH ×6 (00:24→21:46)
[2023-01-18] MEDS: ALBUTEROL NEBULIZED 2.5 MG/3 ML INHALATION SCH ×7 (00:47→23:12)
[2023-01-18] MEDS: IPRATROPIUM 0.5 MG/2.5 ML NEBU INHALATION SCH ×7 (00:47→23:12)
[2023-01-18 00:59] LABS: Glucose,Whole Blood 145 mg/dL (70-110)
[2023-01-18] MEDS: INSULIN ASPART (NovoLOG) 100 UNIT/ML VIAL SQ SCH ×12 (01:20→21:37)
[2023-01-18] MEDS: SODIUM CHLORIDE 0.9% 80 ML with fentaNYL (PF) 1,000 MCG IV SCH ×6 (01:52→23:42)
[2023-01-18 03:59] LABS: Glucose,Whole Blood 158 mg/dL (70-110)
[2023-01-18 05:58] LABS: ABG Base Excess 17.5 mmol/L; ABG PCO2 61 mmHg (35-45); ABG PH 7.44 (7.35-7.45); ABG PO2 70 mmHg (83-108); ABG TCO2 44 mmol/L (19-24); Allen Test Performed? Yes
[2023-01-18 06:00] LABS: ABG HCO3 42 mmol/L (21-25)
[2023-01-18 06:32] LABS: HCT 34.2 % (34.0-46.0); HGB 11.4 gm/dL (11.4-16.0); MCH 32.4 pg (25.0-35.0); MCHC 33.4 g/dL (31.0-37.0); MCV 96.9 fL (80.0-100.0); Mean Platelet Volume 9.3; Platelet Count 213 k/uL (150-450); RBC 3.53 m/uL (3.80-5.40); RDW 15.4 % (11.5-15.5); WBC 12.4 k/uL (3.8-10.6)
[2023-01-18] MEDS: THEOPHYLLINE 24 HOUR 400 MG CAP.ER.24H PO SCH (06:34)
[2023-01-18] MEDS: DULoxetine HCL 30 MG CAPSULE.DR PO SCH (06:34)
[2023-01-18 06:41] LABS: Potassium 4.6 mmol/L (3.5-5.1)
[2023-01-18 06:42] LABS: African American GFR (CKD) >90 (>60 ml/min/1.73 sqM); Blood Urea Nitrogen 38 mg/dL (7-17); Calcium 8.1 mg/dL (8.4-10.2); Chloride 96 mmol/L (98-107); Glucose 137 mg/dL (74-99); Non-African American GFR(CKD) >90 (>60 ml/min/1.73 sqM); Sodium 135 mmol/L (137-145)
[2023-01-18] MEDS: carvediloL 12.5 MG TAB PO SCH ×2 (06:44→18:19)
[2023-01-18 06:47] LABS: Prothrombin Time 10.4 sec (9.0-12.0)
[2023-01-18 06:49] LABS: Anion Gap 4 mmol/L; Carbon Dioxide 35 mmol/L (22-30)
[2023-01-18] MEDS: BUDESONIDE 1 MG/2 ML NEBU INHALATION SCH ×2 (07:42→19:23)
[2023-01-18] MEDS: FORMOTEROL FUMARATE 20 MCG/2 ML NEBU INHALATION SCH ×2 (07:42→19:23)
--- NOTE | 2023-01-18 07:54 | XR ---
EXAMINATION TYPE: XR chest 1V portable DATE OF EXAM: 01/18/2023 6:05 AM COMPARISON: Chest radiographs from 01/17/2023 TECHNIQUE: XR chest 1V portable Portable AP radiograph of the chest. CLINICAL INDICATION:Female, 67 years old with history of mechanical ventilation; FINDINGS: Lungs/Pleura: Similar small right pleural effusion with right mid and lower lung patchy airspace opac ities. No pneumothorax. Mild hyperinflation. Interstitial densities are similar. Pulmonary vascularity: Unremarkable. Heart/mediastinum: Cardiomediastinal silhouette is enlarged and stable. Atherosclerotic calcificatio ns are seen in the aorta. Musculoskeletal: No acute osseous pathology. Other findings: None Lines/Tubes: Endotracheal tube with distal tip 3.2 cm above the rod Nasogastric tube with its distal tip and side-port projecting under the diaphragm. Left-sided PICC with distal tip at the mid SVC. IMPRESSION: 1. Similar mild cardiomegaly with interstitial change, small right pleural effusion and right mid an d lower lung patchy airspace opacities. 2. Stable support lines and tubes.
[2023-01-18 08:45] LABS: Glucose,Whole Blood 135 mg/dL (70-110)
[2023-01-18] MEDS: LACTULOSE 20 GM/30 ML CUP PO SCH ×2 (08:51→21:42)
[2023-01-18] MEDS: PANTOPRAZOLE 40 MG/10 ML VIAL IVP SCH ×2 (08:51→21:42)
[2023-01-18] MEDS: FUROSEMIDE 10 MG/ML 2 ML VIAL IV SCH (08:52)
[2023-01-18] MEDS: HEPARIN SODIUM,PORCINE/PF 5,000 UNIT/0.5 ML SYRINGE SQ SCH ×2 (08:52→21:42)
[2023-01-18] MEDS: INSULIN DETEMIR (LEVEMIR) 100 UNIT/ML SYR SQ SCH ×2 (08:52→21:44)
[2023-01-18] MEDS: CHLORHEXIDINE GLUCONATE 15 ML CUP MUCOUS MEM SCH ×2 (08:53→21:42)
[2023-01-18] MEDS: VERAPAMIL 40 MG TAB PO SCH ×3 (08:55→21:45)
[2023-01-18] MEDS: CLEVIDIPINE BUTYRATE 25 MG in EMPTY BAG 1 BAG IV SCH (10:27)
[2023-01-18 11:51] LABS: Glucose,Whole Blood 134 mg/dL (70-110)
--- NOTE | 2023-01-18 12:12 | P.PN ---
Subjective Progress Note Date: 01/18/23 Principal diagnosis: Respiratory failure. Reevaluated today on 01/11/2023, patient remains intubated and mechanically ventilated. She is on assist control rate of 16 tidal volume 450 FiO2 50% and PEEP of 5 ABG showed a pO2 of 95 pCO2 56 pH of 7.41, I cut down her FiO2 to 45%. Patient remains on propofol at 35 mcg/kg/m she is also on vitamin HP/enteral feeding at 30 mL per hour, and she is on IV fluid to KVO. Patient remains sedated, he is hemodynamically stable, not requiring any pressors. Remains on GI and DVT prophylaxis, antibiotics have been discontinued since all the cultures have been negative including blood cultures and sputum cultures so far. Patient was on cefepime which I will discontinue. Chest x-ray showed tiny right-sided pleural effusion and left pleural effusion with bibasilar atelectasis, no clear-cut evidence of pneumonia CBC is normal and basic metabolic is unremarkable Reevaluated today on 01/12/2023, patient remains in the ICU, intubated and mechanically ventilated. Patient is on assist control rate of 16 tidal volume 450 FiO2 45% and PEEP of 5 ABG showed a pO2 of 78 pCO2 of 50 pH of 7.47, FiO2 was cut down to 40%. Remains on propofol at 20 mcg/kg/m, not requiring any pressors, she is on vital HP/for enteral nutritional support. It is at 35 mL per hour. Patient is maintaining good urine output, she is on IV fluid at 75 mL per hour. Today the patient was given a short trial of pressure support of 12 and CPAP, did not do well, and she was moving very small tidal volumes and noted to be tachypneic on physical examination she did have scattered rhonchi and wheezes. Patient is obviously not ready for any weaning trials or extubation at this point. Chest x-ray continues to show small bilateral effusions with a right basilar atelectasis. Blood cultures have been negative and sputum cultures have been negative showing mostly normal respiratory patricia, has antibiotics have been discontinued. Patient remains mostly on bronchodilators, is also on GI and DVT prophylaxis Reevaluated today on 01/13/2023, patient remains in the ICU, intubated and mechanically ventilated. She is on assist control rate of 16 tidal volume 450 FiO2 40% and PEEP of 5 ABG showed a pO2 of 70 pCO2 52 pH of 7.47 hence no change was made in her ventilator settings. Patient remains on propofol at 20 mcg/kg/m IV fluid at KVO vital HP at 25 mL per hour not requiring any pressors. However the patient became extremely agitated yesterday in spite of maximal dose of propofol hence I started the patient on fentanyl at 0.5 mcg/kg per hour. And sh e remains on fentanyl propofol was cut down to 40 mics per kilo per minute. Chest x-ray is basically the same showing some bibasilar atelectasis especially at the right base. And small pleural effusions. WBC count is 7.1 hemoglobin 11.2 electrolytes are normal bicarb is 39, renal profile is normal blood sugar is 247 Reevaluated today on 01/14/2023, patient remains in the ICU, intubated and mech anically ventilated. She is on assist control rate of 16 tidal volume 450 FiO2 40% PEEP of 5 ABG showed a pO2 of 69 pCO2 58 pH of 7.43. Patient is still on propofol at 45 mcg/kg/m she is also on fentanyl 0.5 mics per kilo per hour receiving vital HP at 25 mL per hour. On lower doses of sedation, the patient seems to be appropriate according to the nurses, and follows simple instructions. However the patient continues to have significant abnormal lung findings with diffuse rhonchi and wheezes bilaterally, I feel the patient is not given be able to wean easily considering his severe underlying COPD, hence [facility] consulting Dr. Burgess for possible tracheostomy and PEG tube placement in the next 24-48 hours. In the meantime I will continue present supportive care measures. And continue present treatment plan. WBC count is 8.8 hemoglobin is 11.1. Basic metabolic profile is normal renal profile is normal, chest x-ray continues to show small bilateral pleural effusions and right lower lobe atelectasis, again strongly doubt pneumonia. Progress note dated 01/15/2023. 67-year-old female well-known to our service. She has a history of severe/end- stage oxygen-dependent COPD. She was admitted to the hospital on January 04 with respiratory failure and COPD exacerbation. She was intubated and mechanically ventilated on January 09. The patient currently is on volume assist control, rate 16, tidal volume 450, FiO2 40%, and PEEP of 5. Blood gases show pO2 78, pCO2 56, and a pH is 7.45. At 50 mcg/kg/m, and fentanyl at 1 mcg/kg/h. The patient's also getting saline at 10 mL an hour, and vital high protein at 25 mL an hour, which is goal. The patient will have a daily interruption of sedation today, on a pressure support of a CPAP of 5. The patient's peak airway pressures 43, and plateau pressure is 27. Such a large difference between the peak and plateau, the patient is likely not to be extubated today. White count 10.9, hemoglobin 11.2, hematocrit 34.1, with a normal platelet count. Sodium 137, potassium 4.5, chlorides 99, CO2 37, BUN 40, creatinine 0.65. Chest x-ray shows some cardiomegaly, and mild interstitial changes, possibly related to interstitial edema. Progress note dated 01/16/2023. 67-year-old female well-known to our service. She has a history of severe end- stage COPD. She was admitted to the hospital on January 04. At that time she had respiratory failure with COPD exacerbation. She required intubation on January 09. For the last 2 days we attempted a daily interruption of sedation, and spontaneous breathing trial. Unfortunately, she failed miserably, within minutes. Hence, it is likely that we will proceed with tracheostomy and PEG tub e placement. The patient is on volume assist control, rate 16, tidal volume 450, FiO2 40%, and PEEP of 5. PO2 71, pCO2 of 54, and pH is 7.47. The patient's currently on fentanyl, 1 mcg/kg/h, propofol 50 mcg/kg/m, and saline at KVO. The patient is getting vital high protein at goal, which is 25 mL an hour. Yesterday, she failed her SBT, after 2 minutes. White count 16.5, hemoglobin 11.1, hematocrit 34.5, and platelet count 206,000. Sodium 138, potassium 4.3, chlorides 98, CO2 35, BUN 42, creatinine 0.73. Microbiologic sampling is negative. Chest x-ray shows patchy and/or atelectasis. Progress note dated 01/17/2023. 67-year-old female with history of severe COPD. Her COPD is end stage. She was admitted to the hospital on January 04, for respiratory failure and COPD exacerbation. She got worse, and was intubated on January 09. She's been ventilated since. For the last 3 days, we did a daily interruption of sedation with a spontaneous breathing trial, and she did very poorly on all 3 attempts. Therefore, I think she is a candidate for tracheostomy and PEG tube placement. I did have a conversation with her sister yesterday, and her sister wanted to give her 1 additional attempt, today. She failed her trial today. The patient is on the volume assist control, rate 16, tidal volume 450, FiO2 40%, and PEEP of 5. Arterial blood gases show a PaO2 of 61, pCO2 of 56, and pH is 7.45. The patient is receiving saline at 10 mL an hour, propofol at 50 mcg/kg/m, fentanyl at 1 mcg/kg/h, and vital high protein at 25 mL an hour, which is goal. The patient will receive Lasix 40 mg IV push once, prior to her weaning trial. White count 13.7, within normal hemoglobin, hematocrit, and platelet count. Sodium 136, potassium 4.3, chlorides 97, CO2 35, BUN 41, and creatinine 0.66. Microbiology sampling has been negative. Chest x-ray shows a small right-sided pleural effusion, and some basilar atelectasis or infiltrate at the right base. Progress note dated 01/18/2023. 67-year-old female with a history of severe COPD. The patient was admitted to the hospital on January 04 for respiratory failure and COPD exacerbation. For worsening respiratory failure, she was intubated on January 09. She's been ventilated since. She's had multiple attempts at weaning, and has done poorly with each attempt. I did speak to the sister, who now because me that it's her brother that is making medical decisions for this patient. We're hoping to proceed to tracheostomy and PEG tube placement. Currently, she is on volume assist control, rate of 16, tidal volume 450, FiO2 50%, and PEEP of 5. Blood gases show pO2 70, pCO2 61, and a pH of 7.44. Saline is running at 20 mL an hour, propofol is a 35 mcg/kg/m, and fentanyl is at 1 mcg/kg/h. Tube feedings on hold. We will attempt another a daily interruption of sedation and spontaneous breathing trial today. White count 12.4, hemoglobin 11.4, hematocrit 34.2, and platelet count normal. Sodium 135, potassium 4.6, chlorides 96, CO2 35, BUN 38, creatinine 0.66. Microbiologic studies are negative. Chest x-ray shows similar findings of patchy airspace disease. Objective - Vital Signs Vital signs: Vital Signs Temp 98.7 F 01/18/23 09:00 Pulse 82 01/18/23 10:57 Resp 15 01/18/23 10:57 BP 147/86 01/18/23 07:00 Pulse Ox 92 L 01/18/23 10:00 FiO2 40 01/18/23 10:53 Intake & Output 01/17/23 01/18/23 01/18/23 18:59 06:59 18:59 Intake Total 716.810 698.213 366.754 Output Total 1335 465 245 Balance -618.190 233.213 121.754 Weight 93.5 kg 93.2 kg Intake: IV 123 147 82 ARTERIAL LINE. 3 27 12 Sodium Chloride 0.9% 1, 120 120 70 000 ml @ 20 mls/hr IV . Q24H [facility] Rx#:[id number] Intake, IV Titration 293.810 396.213 164.754 Amount Clevidipine Butyrate 25 7.534 43.032 mg In Empty Bag 1 bag @ 1 MG/HR 2 mls/hr IV .Q24H [facility] Rx#:[id number] Sodium Chloride 0.9% 80 78.76 96.213 ml @ 1 MCG/KG/HR 8.8 mls/ hr IV .[id number] [facility] with fentaNYL (PF) 1,000 mcg Rx#:[id number] propofoL 1,000 mg In 207.516 300.000 121.722 Empty Bag 1 bag @ 20 MCG/ KG/MIN 10.452 mls/hr IV . Q9H35M [facility] Rx#:[id number] Tube Feeding 300 125 Other 30 120 Output: Urine 1335 465 245 Other: Voiding Method Indwelling Catheter Indwelling Catheter Indwelling Catheter ABP, PAP, CO, CI - Last Documented Arterial Blood Pressure 129/48 - Exam No acute distress, currently sedated, with an orally placed endotracheal tube. HEENT examination is grossly unremarkable. Neck supple. Full range of motion. No adenopathy thyromegaly or neck vein distention. Cardiovascular examination reveals regular rhythm rate. S1-S2 normal. No S3 or S4. No discernible murmur noted. Heart rate about 80 to bpm. Heart sounds are distant. Lungs reveal expiratory rhonchi and wheezes. Breath sounds equal. Saturations are 92 %. Abdomen soft with bowel sounds, and without masses or tenderness. Extremities are intact. No cyanosis clubbing or edema. Skin is without rash or lesion. Neurologic examination cannot be adequately assessed at this time. - Labs CBC & Chem 7: 01/18/23 06:15 01/18/23 06:15 Labs: Abnormal Lab Results - Last 24 Hours (Table) 01/17/23 01/17/23 01/18/23 Range/Units 14:18 15:57 00:57 WBC (3.8-10.6) k/uL RBC (3.80-5.40) m/uL APTT (22.0-30.0) sec ABG pCO2 (35-45) mmHg ABG pO2 (83-108) mmHg ABG HCO3 (21-25) mmol/L ABG Total CO2 (19-24) mmol/L Sodium (137-145) mmol/L Potassium 3.4 L (3.5-5.1) mmol/L Chloride (98-107) mmol/L Carbon Dioxide (22-30) mmol/L BUN (7-17) mg/dL Glucose (74-99) mg/dL POC Glucose (mg/dL) 122 H 145 H (70-110) mg/dL Calcium (8.4-10.2) mg/dL 01/18/23 01/18/23 01/18/23 Range/Units 03:57 05:47 06:15 WBC 12.4 H (3.8-10.6) k/uL RBC 3.53 L (3.80-5.40) m/uL APTT (22.0-30.0) sec ABG pCO2 61 H (35-45) mmHg ABG pO2 70 L (83-108) mmHg ABG HCO3 42 H* (21-25) mmol/L ABG Total CO2 44 H (19-24) mmol/L Sodium (137-145) mmol/L Potassium (3.5-5.1) mmol/L Chloride (98-107) mmol/L Carbon Dioxide (22-30) mmol/L BUN (7-17) mg/dL Glucose (74-99) mg/dL POC Glucose (mg/dL) 158 H (70-110) mg/dL Calcium (8.4-10.2) mg/dL 01/18/23 01/18/23 01/18/23 Range/Units 06:15 06:15 08:43 WBC (3.8-10.6) k/uL RBC (3.80-5.40) m/uL APTT 21.0 L (22.0-30.0) sec ABG pCO2 (35-45) mmHg ABG pO2 (83-108) mmHg ABG HCO3 (21-25) mmol/L ABG Total CO2 (19-24) mmol/L Sodium 135 L (137-145) mmol/L Potassium (3.5-5.1) mmol/L Chloride 96 L (98-107) mmol/L Carbon Dioxide 35 H (22-30) mmol/L BUN 38 H (7-17) mg/dL Glucose 137 H (74-99) mg/dL POC Glucose (mg/dL) 135 H (70-110) mg/dL Calcium 8.1 L (8.4-10.2) mg/dL 01/18/23 Range/Units 11:49 WBC (3.8-10.6) k/uL RBC (3.80-5.40) m/uL APTT (22.0-30.0) sec ABG pCO2 (35-45) mmHg ABG pO2 (83-108) mmHg ABG HCO3 (21-25) mmol/L ABG Total CO2 (19-24) mmol/L Sodium (137-145) mmol/L Potassium (3.5-5.1) mmol/L Chloride (98-107) mmol/L Carbon Dioxide (22-30) mmol/L BUN (7-17) mg/dL Glucose (74-99) mg/dL POC Glucose (mg/dL) 134 H (70-110) mg/dL Calcium (8.4-10.2) mg/dL Assessment and Plan Assessment: Acute on chronic hypoxemic and hypercapnic respiratory failure, requiring intubation on 01/09/2023, with failure to wean from mechanical ventilation, despite numerous daily interruption of sedation, and spontaneous breathing trials. Possible underlying sepsis, with hypotension. Severe end-stage COPD. Chronic hypercapnic respiratory failure. History of left upper lobe nodule. Previous history of coronavirus associated pneumonia. Benign essential hypertension. History of rheumatoid arthritis. Chronic back pain. Prior history of tobacco use. Cushingoid habitus, secondary to chronic steroids. Gen. medical debility. Plan: Plan dated 01/15/2023. Labs, x-rays, and medications are reviewed. The patient may not be weaned and mobile at this point, given the large difference between the peak airway pressure, and a plateau pressure. We will attempt a daily interruption of sedation, and a spontaneous breathing trial. Family wants to hold off on the tracheostomy and PEG tube at this time, to see if the patient is possibly able to come off the ventilator. Prognosis remains very guarded. We will continue with GI and DVT prophylaxis. We continue with tube feeds. Arterial blood gases are reasonable. Plan dated 01/16/2023. The patient's doing about the same, she is chronically and critically ill, and his failed her spontaneous breathing trials, for the last 2 days. Labs, x-rays, medications are reviewed. She remains on fentanyl and propofol. She is getting tube feedings. The patient currently is a full code. Apparently her sister is questioning whether or not the patient should have a tracheostomy and PEG tube. We will attempt to talk to the sister. Patient's overall prognosis remains very poor. She is receiving tube feedings. She remains on GI and DVT prophylaxis. Plan dated 01/17/2023. Unfortunately, the patient again failed her spontaneous breathing trial. I spoke with the patient's sister yesterday, and she agreed to give her sister 1 additional attempt, at weaning. Again, she did very poorly. We will proceed with tracheostomy and PEG tube placement. Labs, x-rays, medications are reviewed. The patient remains on propofol, and fentanyl. She is receiving tube feedings. Blood gases are borderline. We will continue to follow the patient and make recommendations along the way. Prognosis is very guarded. Plan dated 01/18/2023. According to the sister, Candace, the person now making decisions for this patient is her brother. The patient is currently still on the mechanical ventilator. Previous attempts to weaning have been unsuccessful. Labs, x-rays, and medications are reviewed. We will continue to follow make recommendations were appropriate. The patient remains on propofol and fentanyl. Tube feedings on hold. Prognosis is guarded. Time with Patient: Greater than 30
--- NOTE | 2023-01-18 13:18 | P.PN ---
Subjective Progress Note Date: 01/18/23 CHIEF COMPLAINT: Respiratory failure, malnutrition HISTORY OF PRESENT ILLNESS: Patient is currently in the ICU intubated and on mechanical ventilation. Patient is scheduled to undergo another weaning trial today. Still awaiting family's decision regarding tracheostomy and PEG tube placement. Afebrile. WBC 12.4 PHYSICAL EXAM: VITAL SIGNS: Reviewed. GENERAL: Well-developed in no acute distress. ABDOMEN: Soft. Nondistended. Nontender. ASSESSMENT: 1. Respiratory failure 2. Moderate protein calorie malnutrition PLAN: -Awaiting family's decision regarding tracheostomy and PEG tube placement. If unable to complete today, then patient will be scheduled for tracheostomy and PEG tube placement next , 01/24/2023 -Tube feeds are currently on hold for possible tracheostomy and PEG tube placement Physician Personnel Placement Specialist note has been reviewed by physician. Signing provider agrees with the documented findings, assessment, and plan of care. Objective - Vital Signs Vital signs: Vital Signs Temp 98.2 F 01/18/23 12:00 Pulse 58 L 01/18/23 12:00 Resp 16 01/18/23 12:00 BP 147/86 01/18/23 07:00 Pulse Ox 88 L 01/18/23 12:00 FiO2 40 01/18/23 12:00 Intake & Output 01/17/23 01/18/23 01/18/23 18:59 06:59 18:59 Intake Total 716.810 698.213 412.754 Output Total 1335 465 645 Balance -618.190 233.213 -232.246 Weight 93.5 kg 93.2 kg Intake: IV 123 147 128 ARTERIAL LINE. 3 27 18 Sodium Chloride 0.9% 1, 120 120 110 000 ml @ 20 mls/hr IV . Q24H [facility] Rx#:[id number] Intake, IV Titration 293.810 396.213 164.754 Amount Clevidipine Butyrate 25 7.534 43.032 mg In Empty Bag 1 bag @ 1 MG/HR 2 mls/hr IV .Q24H [facility] Rx#:[id number] Sodium Chloride 0.9% 80 78.76 96.213 ml @ 1 MCG/KG/HR 8.8 mls/ hr IV .[id number] [facility] with fentaNYL (PF) 1,000 mcg Rx#:[id number] propofoL 1,000 mg In 207.516 300.000 121.722 Empty Bag 1 bag @ 20 MCG/ KG/MIN 10.452 mls/hr IV . Q9H35M [facility] Rx#:[id number] Tube Feeding 300 125 Other 30 120 Output: Urine 1335 465 645 Other: Voiding Method Indwelling Catheter Indwelling Catheter Indwelling Catheter ABP, PAP, CO, CI - Last Documented Arterial Blood Pressure 120/49 - Labs CBC & Chem 7: 01/18/23 06:15 01/18/23 06:15 Labs: Abnormal Lab Results - Last 24 Hours (Table) 01/17/23 01/17/23 01/18/23 Range/Units 14:18 15:57 00:57 WBC (3.8-10.6) k/uL RBC (3.80-5.40) m/uL APTT (22.0-30.0) sec ABG pCO2 (35-45) mmHg ABG pO2 (83-108) mmHg ABG HCO3 (21-25) mmol/L ABG Total CO2 (19-24) mmol/L Sodium (137-145) mmol/L Potassium 3.4 L (3.5-5.1) mmol/L Chloride (98-107) mmol/L Carbon Dioxide (22-30) mmol/L BUN (7-17) mg/dL Glucose (74-99) mg/dL POC Glucose (mg/dL) 122 H 145 H (70-110) mg/dL Calcium (8.4-10.2) mg/dL 01/18/23 01/18/23 01/18/23 Range/Units 03:57 05:47 06:15 WBC 12.4 H (3.8-10.6) k/uL RBC 3.53 L (3.80-5.40) m/uL APTT (22.0-30.0) sec ABG pCO2 61 H (35-45) mmHg ABG pO2 70 L (83-108) mmHg ABG HCO3 42 H* (21-25) mmol/L ABG Total CO2 44 H (19-24) mmol/L Sodium (137-145) mmol/L Potassium (3.5-5.1) mmol/L Chloride (98-107) mmol/L Carbon Dioxide (22-30) mmol/L BUN (7-17) mg/dL Glucose (74-99) mg/dL POC Glucose (mg/dL) 158 H (70-110) mg/dL Calcium (8.4-10.2) mg/dL 01/18/23 01/18/23 01/18/23 Range/Units 06:15 06:15 08:43 WBC (3.8-10.6) k/uL RBC (3.80-5.40) m/uL APTT 21.0 L (22.0-30.0) sec ABG pCO2 (35-45) mmHg ABG pO2 (83-108) mmHg ABG HCO3 (21-25) mmol/L ABG Total CO2 (19-24) mmol/L Sodium 135 L (137-145) mmol/L Potassium (3.5-5.1) mmol/L Chloride 96 L (98-107) mmol/L Carbon Dioxide 35 H (22-30) mmol/L BUN 38 H (7-17) mg/dL Glucose 137 H (74-99) mg/dL POC Glucose (mg/dL) 135 H (70-110) mg/dL Calcium 8.1 L (8.4-10.2) mg/dL 01/18/23 Range/Units 11:49 WBC (3.8-10.6) k/uL RBC (3.80-5.40) m/uL APTT (22.0-30.0) sec ABG pCO2 (35-45) mmHg ABG pO2 (83-108) mmHg ABG HCO3 (21-25) mmol/L ABG Total CO2 (19-24) mmol/L Sodium (137-145) mmol/L Potassium (3.5-5.1) mmol/L Chloride (98-107) mmol/L Carbon Dioxide (22-30) mmol/L BUN (7-17) mg/dL Glucose (74-99) mg/dL POC Glucose (mg/dL) 134 H (70-110) mg/dL Calcium (8.4-10.2) mg/dL
[2023-01-18] MEDS: NOREPINEPHRINE 4 MG in SODIUM CHLORIDE 0.9% 250 ML IV SCH (14:14)
[2023-01-18 16:22] LABS: Glucose,Whole Blood 163 mg/dL (70-110)
--- NOTE | 2023-01-18 18:07 | P.PN ---
Subjective Progress Note Date: 01/18/23 This is a pleasant 67 years old female with past medical history of advanced COPD advanced COPD on home oxygen dependent on 3-4 L at all times, obstructive sleep apnea CPAP dependent nightly, diastolic CHF hypertension, iron deficiency anemia, rheumatoid arthritis, and chronic back pain who presented to the ER because of worsening shortness of breath for a few days duration Patient currently is lying in bed in the emergency room 6, with BiPAP machine on with parameters of 15/6, FiO2 of 40%. Patient is tachypneic breathing with direct about 34-37. Patient looks tired and she could not provide much information, she cannot talk but she is awake and oriented. She follows commands. She has minimal chest movement with expiratory wheezing. She denies any pain, no chest pain she denies any GI or urinary symptoms. She moves all extremities symmetrically. vitals reviewed and patient is afebrile. Mild Leukocytosis of 12.2, Mild Thrombocytopenia 127. Hemoglobin Normal. INR 0.9. VBG Showing High PCO2 of 84, Low pH of 7.3. BNP showing high carbon dioxide at 49, creatinine normal. Liver enzymes not elevated. Troponin negative. ProBNP is 301. Glucose 128. Chest x-ray reviewed by myself showing enlarged heart with COPD changes. Minimal chest congestion. Patient started on dexamethasone, albuterol. EKG showing normal sinus rhythm at [address]-T changes. 01/05/2023 Patient remains in the ICU, she required BiPAP all the ninth yesterday except for one hour she got some rest. Today patient showed significant improvement, she is more alert awake, pleasant. Her mentation is back to normal. Her breathing is also improving with decrease respiratory rate into 18-20, per to more than 30 yesterday. Repeat chest x-ray looks similar findings to yesterday with no obvious infiltrate or consolidation. The heart is mildly enlarged, just x-ray reviewed by myself. Other vitals and labs looks stable. pro-calcitonin is slightly elevated at 0.20 She is currently receiving IV Solu-Medrol 60 mg as well as broad-spectrum antibiotics with vancomycin and cefepime Until doxycycline. Also she is on IV Lasix daily. 01/06/2023 pt today is significantly improved , she can talk easily off the bipap machine in the moring although she was using all night, she requires few liter of oxgyen per min like 4 only Because of significant improvement and she was moved out of the ICU Her treatment was the risk related, antibiotics vancomycin and doxycycline were stopped and Cefepime. IV Lasix Switched to Oral Dose of 40 Mg Daily. While She Kept on High Dose of IV Solu-Medrol 60 Mg. 01/07/2023 Patient today having some more breathing difficulty compared to yesterday however she still looks greatly although she still have some wheezing. She is saturating 90s on 4 L oxygen via nasal cannula, no much of accessory muscles and she can talk more freely. Her chest x-ray today showing worse than admission when I reviewed it but most likely this is because of the technique. She remains on IV Solu-Medrol, 60 mg. Cefepime, oral Lasix 40 mg daily. Patient did not need BiPAP last night. Patient wants to keep the [place] cath in Place because it's harder for her to get up 01/08/2023 Patient seen and evaluated in follow-up today with pulmonary following closely. Patient is continued on 4 L via nasal cannula as well as BiPAP. Patient continues on oral steroids along with inhalers and cefepime. Patient was started on cefepime empirically for concerns of pneumonia. Patient continues to be extremely dyspneic with minimal exertion and would recommend weaning FiO2 as tolerated. Patient normally wears a CPAP and has one for the outpatient setting although would recommend continuing with BiPAP especially at night from 8 PM to 6 AM. Continue BiPAP as needed as well. Patient extremely weak and has been progressively getting more weak with each admission. Patient has been hospitalized very frequently most recently and clinically very slow to improve. Case management following as there will be plans to return to rehab or possible inpatient rehab. Will await PT/OT therapy evaluation. Patient is currently afebrile denies chest pain or palpitations. Patient reports she is tolerating diet with no reports of nausea or vomiting noted. 01/09/2023 Patient is seen and evaluated in follow up today and per nursing staff was found this morning with her oxygen and BIpap mask off and O2 saturations in the 60's. Patient was placed back on bipap and numbers improved slightly although continued to be restless, combative, and not following commands. Ordered ativan to calm and was not effective. Patient extremely dyspneic and tachypneic and working with accessory muscle use. Luckily, pulmonary was rounding on the unit and ordered transfer to ICU for possible intubation and close monitoring. Patient is afebrile and continued on cefepime empirically and sputum cultures ordered. continued on breathing treatments as well as oral prednisone. 01/10/2023 Patient is seen in follow up today and continues to be in the ICU in critical condition. Patient continues on mechanical ventilation with an FI02 of 50% and peep is 5. Patient was off pressor support and off propofol and not tolerating with no plans for weaning off the vent at this time. Peg and tracheostomy is being considered in the next few days possibly. Patient overall prognosis is extremely poor and guarded at this time. PICC line is being ordered and pending. Patient is also continued on empiric antibiotics and awaiting cultures. Patient also placed back on IV steroids per pulmonary. Patient is afebrile. 01/11/2023 Patient is seen and evaluated in follow-up today continues to be in the MICU with pulmonary rehab services aide following closely. Patient remains on mechanical ventilation working on weaning FiO2 as tolerated. FiO2 is currently at 45% with a PEEP of 5 and undergoing sedation holidays with no plans of weaning at this time. Patient was continued on Cefepime although cultures are negative and blood cultures remain negative will discontinue cefepime. Patient is continued on tube feeds and blood sugar slightly elevated will continue sliding scale and add low-dose long-acting twice daily and continue to monitor Accu-Cheks before meals and at bedtime. Recommend follow-up chest x-ray and labs in the a.m. 01/12/2023 Patient is seen and evaluated continues to be the ICU with sister at the bedside. Patient remains on mechanical ventilation with no plans of weaning at this time. FiO2 being adjusted down to 40% with a PEEP of 5 and patient is tolerating well. Patient is off pressor support as well as antibiotics and being closely monitored. Patient's blood sugars elevated and have added long- acting and will increase in continue to monitor closely. Chest x-ray today shows persistent bilateral effusions right greater than left with patchy densities and atelectasis. Patient is undergoing sedation holidays to monitor mental status. Sister at the bedside and discussed with Juventino and address their questions and concerns to the? Ability. Patient remains afebrile. Patient is continued on tube feeding and tolerating. Overall prognosis remains extremely g uarded. 01/13/2023 Patient is evaluated today continues to be in the ICU and undergoing weaning tri als of sedation and had CPAP trial yesterday and did not tolerate well became increasingly agitated on maximum propofol requiring sentinel. Propofol being titrated down. Patient continues off pressor support. Patient is maintained of IV antibiotics and is continued on IV steroids along with breathing treatments. Patient being started on lactulose unknown last bowel movement. Recommend daily chest x-rays and follow-up labs. Recommend to replace electrolytes per protocol. Blood sugars remain elevated and tolerating tube feeds and will continue sliding scale and increased long-acting to 20 units twice daily. Recommend Accu-Cheks before meals and at bedtime. 01/14/2023 Patient is seen in follow-up continues to be in the ICU maintained on mechanical ventilation with an FiO2 of 40% and PEEP is 5. No plans for trials of weaning today other than mild sedation holiday to assess mentation. Per nursing staff patient is following commands off sedation although does get quite restless and hypertensive and symptomatic no plans for sedation holiday today. Patient is continued on propofol and fentanyl and will continue. Patient is monitored off IV antibiotics and cultures have remained negative. Patient's blood sugars elevated and will add increased insulin covered and continue with current regimen. Pulmonary has consulted general surgery for possible tracheostomy and PEG tube placement and awaiting family decision and consent. 01/15/2023 The patient was seen and evaluated continues to be in the ICU under critical condition. Patient remains on mechanical ventilation with an FiO2 of 40% and PEEP is 5. Working on weaning trials in terms of sedation to monitor mentation with no plans of weaning from mechanical plan at this time. There were plans for possible PEG and trach this morning although family would like a few more days to see if patient is able to wean off the vent. Per pulmonary will attempt CPAP trials and assess for weaning. Chest x-ray today shows some congestion with no significant difference from previous. Patient is continued on IV Lasix daily along with IV steroids, propofol and fentanyl currently off antibiotic and pressor support. Prognosis remains extremely critical and guarded at this time. 01/16/2023 Patient is seen and evaluated in follow-up today continues to be in the ICU with overall poor and guarded prognosis. Patient remains on mechanical vent with an FiO2 of 40% and PEEP is 5. Continuing with daily sedation holiday trials and trialing spontaneous breathing trials although patient is feeling miserable. Pulmonary rehab services aide leaning towards PEG and trach placement will need to discuss further with family. Patient is afebrile continued on IV steroids and breathing treatments is receiving IV Lasix daily and being closely monitored with blood sugars. Blood sugars are improved we'll continue current regimen. Patient continued on tube feedings and tolerating. 01/17/2023 Patient is seen and evaluated in follow-up today continues to be on mechanical ventilation with multiple attempts at weaning and breathing trials and failing miserably with pulmonary rehab services aide following recommending PEG and trach placement in general surgery is following and will likely proceed with tracheostomy placement. Tube feedings are being placed on hold with possible intervention tomorrow. Patient continued on IV steroids along with sedation and breathing treatments with no significant change from yesterday. Patient remains on mechanical ventilation with an FiO2 of 40% and PEEP is 5. Patient also continues on propofol and fentanyl and has been off pressor support. Blood sugars were controlled and will continue current regimen. Patient is afebrile and maintained off antibiotics at this time. Cultures have remained negative. 01/18/2023 Patient is seen in the ICU continue to be on mechanical ventilation with an FiO2 of 40% and PEEP is 5. Pulmonary rehab services aide following along with general surgery and awaiting family decision about possible PEG and trach. Brother, Juventino, who is the decision maker would like to wait until next week and continuing with weaning trials to see if she can come off of the vent. Overall prognosis is poor and guarded and will continue for now. Chest x-ray shows pleural effusions with no significant change from previous and patient is maintained on IV Lasix daily. Patient also continues on breathing treatments along with IV steroids. Blood sugars better controlled and tube feedings have been on hold although would recommend resuming for now if awaiting for PEG placement until next week. Labs reviewed. Patient is afebrile. Review of systems: unable to obtain as patient is on mechanical vent and sedated All medications have been reviewed Active Medications Acetaminophen (Acetaminophen Tab 500 Mg Tab) 1,000 mg PO Q6HR PRN PRN Reason: Fever and/ or Pain Last Admin: 01/12/23 22:28 Dose: 1,000 mg Albuterol Sulfate (Albuterol Nebulized 2.5 Mg/3 Ml) 2.5 mg INHALATION RT-Q4H [facility] Last Admin: 01/18/23 14:41 Dose: 2.5 mg Artificial Tears (Artificial Tears-Hypromellose Drops 15 Ml Btl) 2 drops BOTH EYES QID PRN PRN Reason: Dry Eye(s) Budesonide (Budesonide 1 Mg/2 Ml Nebu) 1 mg INHALATION RT-BID [facility] Last Admin: 01/18/23 07:42 Dose: 1 mg Carvedilol (Carvedilol 12.5 Mg Tab) 12.5 mg PO BID-W/MEALS [facility] Last Admin: 01/18/23 06:44 Dose: 12.5 mg Chlorhexidine Gluconate (Chlorhexidine Gluconate 15 Ml Cup) 15 ml MUCOUS MEM B ID [facility] Last Admin: 01/18/23 08:53 Dose: 15 ml Dextrose/Water (Dextrose 50% Syringe 50 Ml) 25 ml IVP PER PROTOCOL PRN; Protocol PRN Reason: Hypoglycemia Dextrose/Water (Dextrose 50% Syringe 50 Ml) 50 ml IVP PER PROTOCOL PRN; Protocol PRN Reason: Hypoglycemia Duloxetine HCl (Duloxetine Hcl 30 Mg Capsule.Dr) 30 mg PO DAILY@0600 [facility] Last Admin: 01/18/23 06:34 Dose: 30 mg Formoterol Fumarate (Formoterol Fumarate 20 Mcg/2 Ml Nebu) 20 mcg INHALATION RT-BID [facility] Last Admin: 01/18/23 07:42 Dose: 20 mcg Furosemide (Furosemide 10 Mg/Ml 2 Ml Vial) 20 mg IV DAILY [facility] Last Admin: 01/18/23 08:52 Dose: 20 mg Heparin Sodium (Porcine) (Heparin Sodium,Porcine/Pf 5,000 Unit/0.5 Ml Syringe) 5,000 unit SQ Q12HR [facility] Last Admin: 01/18/23 08:52 Dose: 5,000 unit Sodium Chloride (Saline 0.9%) 1,000 mls @ 20 mls/hr IV .Q24H [facility] Last Admin: 01/17/23 21:25 Dose: 20 mls/hr Propofol 1,000 mg/ IV Solution 100 mls @ 10.452 mls/hr IV .Q9H35M [facility]; Protocol Last Admin: 01/18/23 17:22 Dose: 50 mcg/kg/min, 26.13 mls/hr Norepinephrine Bitartrate 4 mg (/ Sodium Chloride) 254 mls @ 9.956 mls/hr IV .Q24H [facility]; Protocol Last Admin: 01/18/23 14:14 Dose: Not Given Fentanyl Citrate 1,000 mcg/ (Sodium Chloride) 100 mls @ 8.8 mls/hr IV .[id number] [facility] Last Admin: 01/18/23 14:19 Dose: 1 mcg/kg/hr, 8.8 mls/hr Clevidipine 25 mg/ IV Solution 50 mls @ 2 mls/hr IV .Q24H [facility]; Protocol Last Titration: 01/18/23 11:20 Dose: 0 mg/hr, 0 mls/hr Insulin Aspart (Insulin Aspart (Novolog) 100 Unit/Ml Vial) 0 unit SQ Q4H [facility]; Protocol Last Admin: 01/18/23 16:26 Dose: 2 unit Insulin Aspart (Insulin Aspart (Novolog) 100 Unit/Ml Vial) 5 unit SQ Q4H [facility] Last Admin: 01/18/23 16:26 Dose: 5 unit Insulin Detemir (Insulin Detemir (Levemir) 100 Unit/Ml Syr) 20 unit SQ BID@0700,2100 [facility] Last Admin: 01/18/23 08:52 Dose: Not Given Ipratropium Lima (Ipratropium 0.5 Mg/2.5 Ml Nebu) 0.5 mg INHALATION RT-Q4H [facility] Last Admin: 01/18/23 14:41 Dose: 0.5 mg Lactulose (Lactulose 20 Gm/30 Ml Cup) 20 gm PO BID [facility] Last Admin: 01/18/23 08:51 Dose: 20 gm Methylprednisolone Sodium Succinate (Methylprednisolone Sod Succi 125 Mg/2 Ml Vial) 60 mg IV Q6HR [facility] Last Admin: 01/18/23 14:51 Dose: 60 mg Miscellaneous Information (Potassium Replacement Protocol 1 Each Misc) 1 each MISCELLANE DAILY PRN; Protocol PRN Reason: Per Protocol Miscellaneous Information (Magnesium Replacement Protocol 1 Each Misc) 1 each MISCELLANE DAILY PRN; Protocol PRN Reason: Per Protocol Montelukast Sodium (Montelukast 10 Mg Tab) 10 mg PO HS [facility] Last Admin: 01/17/23 20:49 Dose: 10 mg Naloxone HCl (Naloxone 0.4 Mg/Ml 1 Ml Vial) 0.2 mg IV Q2M PRN PRN Reason: Opioid Reversal Duoneb ([id number] (/Ipratropium0.5mg)) 1 each INHALATION RT-QID [facility] Last Admin: 01/09/23 16:12 Dose: 1 each Pantoprazole Sodium (Pantoprazole 40 Mg/10 Ml Vial) 40 mg IVP BID [facility] Last Admin: 01/18/23 08:51 Dose: 40 mg Polyethylene Glycol (Polyethylene Glycol 3350 17 Gm Powd.Pack) 17 gm PO DAILY [facility] Ropinirole HCl (Ropinirole Hcl 4 Mg Tablet) 4 mg PO HS [facility] Last Admin: 01/17/23 20:49 Dose: 4 mg Theophylline (Theophylline 24 Hour 400 Mg Cap.Er.24h) 400 mg PO DAILY@0600 [facility] Last Admin: 01/18/23 06:34 Dose: 400 mg Tobramycin/Dexamethasone (Tobra-Dexamet 0.3-0.1% Ophth Drops 2.5 Ml Btl) 2 drops RIGHT EYE Q4HR [facility] Last Admin: 01/18/23 16:27 Dose: 2 drops Verapamil HCl (Verapamil 40 Mg Tab) 40 mg PO TID [facility] Last Admin: 01/18/23 16:25 Dose: 40 mg Physical exam : GENERAL: The patient is on mechanical vent with an FI02 of 40% and peep is 5. Sedated. Well developed, well nourished. obese HEENT: Pupils are round and equally reacting to light. EOMI. No scleral icterus. No conjunctival pallor. Normocephalic, atraumatic. No pharyngeal erythema. No thyromegaly. CARDIOVASCULAR: S1 and S2 muffled PULMONARY: diminished breath sounds bilaterally with course rhonchi, faint crackles noted at the bases ABDOMEN: Soft, nontender, obese. nondistended, normoactive bowel sounds. No pa lpable organomegaly. MUSCULOSKELETAL: No joint swelling or deformity. EXTREMITIES: No cyanosis, clubbing, or pedal edema. NEUROLOGICAL: unable to assess, on sedation of propofol and fentanyl SKIN: No rashes. no petechiae. Assessment: Acute COPD exacerbation Acute on chronic hypoxic respiratory failure patient is normally at home on 3 L nasal cannula, now requriing mechanical ventilation on 01/09/2023 Acute respiratory acidosis Steroid-induced hyperglycemia Altered mental status possibly secondary to C02 narcosis sepsis, doubt septic shock, sepsis mostly due to hypovolemia and hypotension, requiring pressor support, now off pressor support Acute on chronic hypercapnic respiratory failure Chronic leukocytosis History of COVID-19 pneumonia Benign essential hypertension History of rheumatoid osteoarthritis Chronic back pain Former smoker Full code Plan: Recommend to continue with current medications and Patient continues on mechanical vent with an FI02 of 40% and peep of 5 and being closely monitored in the ICU. Continued on IV steroids and breathing inhalational treatments. Pulmonary following closely recommending tracheostomy and PEG tube placement and family would like to wait until next week to see if patient is able to be weaned off. Patient has had multiple attempts on spontaneous breathing trials and failing miserably. recommend monitoring blood sugars before meals at bedtime and continuing with sliding scale and long-acting. Tube Feedings were on hold and would recommend resuming if not having a PEG tube until next week. Currently undergoing sedation trials to monitor mental status Per nursing staff patient does follow commands off sedation Due to multiple complex medical issues, overall prognosis is extremely poor and guarded The impression and plan of care has been dictated by Teresa Portillo, Nurse Practitioner as directed. Dr. Durga MD I have performed a history and examination and MDM of this patient, discussed the same with the dictator, and agree with the dictator's assessment and plan as written ,documented as a scribe. Based on total visit time, I have performed more than 50% of the visit. Objective - Vital Signs Vital signs: Vital Signs Temp 98.7 F 01/18/23 09:00 Pulse 57 L 01/18/23 09:00 Resp 16 01/18/23 09:00 BP 147/86 01/18/23 07:00 Pulse Ox 94 L 01/18/23 09:00 FiO2 50 01/18/23 09:00 Intake & Output 01/17/23 01/18/23 01/18/23 18:59 06:59 18:59 Intake Total 716.810 698.213 205.229 Output Total 1335 465 95 Balance -618.190 233.213 110.229 Weight 93.5 kg 93.2 kg Intake: IV 123 147 59 ARTERIAL LINE. 3 27 9 Sodium Chloride 0.9% 1, 120 120 50 000 ml @ 20 mls/hr IV . Q24H [facility] Rx#:[id number] Intake, IV Titration 293.810 396.213 86.229 Amount Clevidipine Butyrate 25 7.534 mg In Empty Bag 1 bag @ 1 MG/HR 2 mls/hr IV .Q24H [facility] Rx#:[id number] Sodium Chloride 0.9% 80 78.76 96.213 ml @ 1 MCG/KG/HR 8.8 mls/ hr IV .[id number] [facility] with fentaNYL (PF) 1,000 mcg Rx#:[id number] propofoL 1,000 mg In 207.516 300.000 86.229 Empty Bag 1 bag @ 20 MCG/ KG/MIN 10.452 mls/hr IV . Q9H35M [facility] Rx#:[id number] Tube Feeding 300 125 Other 30 60 Output: Urine 1335 465 95 Other: Voiding Method Indwelling Catheter Indwelling Catheter ABP, PAP, CO, CI - Last Documented Arterial Blood Pressure 163/61 - Labs CBC & Chem 7: 01/18/23 06:15 01/18/23 06:15 Labs: Abnormal Lab Results - Last 24 Hours (Table) 01/17/23 01/17/23 01/17/23 Range/Units 11:50 14:18 15:57 WBC (3.8-10.6) k/uL RBC (3.80-5.40) m/uL APTT (22.0-30.0) sec ABG pCO2 (35-45) mmHg ABG pO2 (83-108) mmHg ABG HCO3 (21-25) mmol/L ABG Total CO2 (19-24) mmol/L Sodium (137-145) mmol/L Potassium 3.4 L (3.5-5.1) mmol/L Chloride (98-107) mmol/L Carbon Dioxide (22-30) mmol/L BUN (7-17) mg/dL Glucose (74-99) mg/dL POC Glucose (mg/dL) 170 H 122 H (70-110) mg/dL Calcium (8.4-10.2) mg/dL 01/18/23 01/18/23 01/18/23 Range/Units 00:57 03:57 05:47 WBC (3.8-10.6) k/uL RBC (3.80-5.40) m/uL APTT (22.0-30.0) sec ABG pCO2 61 H (35-45) mmHg ABG pO2 70 L (83-108) mmHg ABG HCO3 42 H* (21-25) mmol/L ABG Total CO2 44 H (19-24) mmol/L Sodium (137-145) mmol/L Potassium (3.5-5.1) mmol/L Chloride (98-107) mmol/L Carbon Dioxide (22-30) mmol/L BUN (7-17) mg/dL Glucose (74-99) mg/dL POC Glucose (mg/dL) 145 H 158 H (70-110) mg/dL Calcium (8.4-10.2) mg/dL 01/18/23 01/18/23 01/18/23 Range/Units 06:15 06:15 06:15 WBC 12.4 H (3.8-10.6) k/uL RBC 3.53 L (3.80-5.40) m/uL APTT 21.0 L (22.0-30.0) sec ABG pCO2 (35-45) mmHg ABG pO2 (83-108) mmHg ABG HCO3 (21-25) mmol/L ABG Total CO2 (19-24) mmol/L Sodium 135 L (137-145) mmol/L Potassium (3.5-5.1) mmol/L Chloride 96 L (98-107) mmol/L Carbon Dioxide 35 H (22-30) mmol/L BUN 38 H (7-17) mg/dL Glucose 137 H (74-99) mg/dL POC Glucose (mg/dL) (70-110) mg/dL Calcium 8.1 L (8.4-10.2) mg/dL 01/18/23 Range/Units 08:43 WBC (3.8-10.6) k/uL RBC (3.80-5.40) m/uL APTT (22.0-30.0) sec ABG pCO2 (35-45) mmHg ABG pO2 (83-108) mmHg ABG HCO3 (21-25) mmol/L ABG Total CO2 (19-24) mmol/L Sodium (137-145) mmol/L Potassium (3.5-5.1) mmol/L Chloride (98-107) mmol/L Carbon Dioxide (22-30) mmol/L BUN (7-17) mg/dL Glucose (74-99) mg/dL POC Glucose (mg/dL) 135 H (70-110) mg/dL Calcium (8.4-10.2) mg/dL
[2023-01-18 20:27] LABS: Glucose,Whole Blood 113 mg/dL (70-110)
[2023-01-18] MEDS: MONTELUKAST 10 MG TAB PO SCH (21:42)
[2023-01-18] MEDS: rOPINIRole HCL 4 MG TABLET PO SCH (21:46)
[2023-01-19 00:16] LABS: Glucose,Whole Blood 160 mg/dL (70-110)
[2023-01-19] MEDS: methylPREDNISolone SOD SUCCI 125 MG/2 ML VIAL IV SCH ×4 (00:20→16:50)
[2023-01-19] MEDS: INSULIN ASPART (NovoLOG) 100 UNIT/ML VIAL SQ SCH ×12 (00:20→21:34)
[2023-01-19] MEDS: TOBRA-DEXAMET 0.3-0.1% OPHTH DROPS 2.5 ML BTL RIGHT EYE SCH ×6 (00:23→21:35)
[2023-01-19 04:00] LABS: Glucose,Whole Blood 194 mg/dL (70-110)
[2023-01-19 04:34] LABS: HCT 34.2 % (34.0-46.0); HGB 11.1 gm/dL (11.4-16.0); MCH 31.4 pg (25.0-35.0); MCHC 32.3 g/dL (31.0-37.0); MCV 97.3 fL (80.0-100.0); Mean Platelet Volume 9.4; Platelet Count 198 k/uL (150-450); RBC 3.52 m/uL (3.80-5.40); RDW 15.4 % (11.5-15.5); WBC 12.1 k/uL (3.8-10.6)
[2023-01-19 04:39] LABS: African American GFR (CKD) >90 (>60 ml/min/1.73 sqM); Anion Gap -2 mmol/L; Blood Urea Nitrogen 35 mg/dL (7-17); Calcium 7.7 mg/dL (8.4-10.2); Carbon Dioxide 40 mmol/L (22-30); Chloride 96 mmol/L (98-107); Glucose 190 mg/dL (74-99); Non-African American GFR(CKD) >90 (>60 ml/min/1.73 sqM); Potassium 3.8 mmol/L (3.5-5.1); Sodium 134 mmol/L (137-145)
[2023-01-19] MEDS: ALBUTEROL NEBULIZED 2.5 MG/3 ML INHALATION SCH ×5 (04:58→19:52)
[2023-01-19] MEDS: IPRATROPIUM 0.5 MG/2.5 ML NEBU INHALATION SCH ×5 (04:58→19:52)
[2023-01-19] MEDS: THEOPHYLLINE 24 HOUR 400 MG CAP.ER.24H PO SCH (05:28)
[2023-01-19] MEDS: DULoxetine HCL 30 MG CAPSULE.DR PO SCH (05:28)
[2023-01-19 05:48] LABS: ABG Base Excess 15.6 mmol/L; ABG PCO2 58 mmHg (35-45); ABG PH 7.44 (7.35-7.45); ABG PO2 62 mmHg (83-108); ABG TCO2 42 mmol/L (19-24)
[2023-01-19 05:52] LABS: ABG HCO3 40 mmol/L (21-25); Allen Test Performed? no
[2023-01-19] MEDS: INSULIN DETEMIR (LEVEMIR) 100 UNIT/ML SYR SQ SCH ×2 (06:54→21:34)
[2023-01-19] MEDS: carvediloL 12.5 MG TAB PO SCH ×2 (06:54→16:50)
[2023-01-19] MEDS ORDERED: POTASSIUM BICARBONATE/CIT AC 20 MEQ TABLET.EFF NG-TUBE SCH (07:00)
[2023-01-19] MEDS: BUDESONIDE 1 MG/2 ML NEBU INHALATION SCH ×2 (08:00→19:52)
[2023-01-19] MEDS: FORMOTEROL FUMARATE 20 MCG/2 ML NEBU INHALATION SCH ×2 (08:00→19:52)
[2023-01-19] MEDS: SODIUM CHLORIDE 0.9% 1,000 ML IV SCH ×2 (08:05→16:51)
[2023-01-19 08:15] LABS: Glucose,Whole Blood 198 mg/dL (70-110)
[2023-01-19] MEDS: CHLORHEXIDINE GLUCONATE 15 ML CUP MUCOUS MEM SCH ×2 (09:26→21:33)
[2023-01-19] MEDS: HEPARIN SODIUM,PORCINE/PF 5,000 UNIT/0.5 ML SYRINGE SQ SCH ×2 (09:27→21:33)
[2023-01-19] MEDS: FUROSEMIDE 10 MG/ML 2 ML VIAL IV SCH (09:27)
[2023-01-19] MEDS: LACTULOSE 20 GM/30 ML CUP PO SCH ×2 (09:27→21:33)
[2023-01-19] MEDS: polyethylene glycoL 3350 17 GM POWD.PACK PO SCH (09:27)
[2023-01-19] MEDS: PANTOPRAZOLE 40 MG/10 ML VIAL IVP SCH ×2 (09:27→21:33)
[2023-01-19] MEDS: VERAPAMIL 40 MG TAB PO SCH ×3 (09:28→21:41)
--- NOTE | 2023-01-19 10:24 | P.PN ---
Subjective Progress Note Date: 01/19/23 Principal diagnosis: Respiratory failure. Reevaluated today on 01/11/2023, patient remains intubated and mechanically ventilated. She is on assist control rate of 16 tidal volume 450 FiO2 50% and PEEP of 5 ABG showed a pO2 of 95 pCO2 56 pH of 7.41, I cut down her FiO2 to 45%. Patient remains on propofol at 35 mcg/kg/m she is also on vitamin HP/enteral feeding at 30 mL per hour, and she is on IV fluid to KVO. Patient remains sedated, he is hemodynamically stable, not requiring any pressors. Remains on GI and DVT prophylaxis, antibiotics have been discontinued since all the cultures have been negative including blood cultures and sputum cultures so far. Patient was on cefepime which I will discontinue. Chest x-ray showed tiny right-sided pleural effusion and left pleural effusion with bibasilar atelectasis, no clear-cut evidence of pneumonia CBC is normal and basic metabolic is unremarkable Reevaluated today on 01/12/2023, patient remains in the ICU, intubated and mechanically ventilated. Patient is on assist control rate of 16 tidal volume 450 FiO2 45% and PEEP of 5 ABG showed a pO2 of 78 pCO2 of 50 pH of 7.47, FiO2 was cut down to 40%. Remains on propofol at 20 mcg/kg/m, not requiring any pressors, she is on vital HP/for enteral nutritional support. It is at 35 mL per hour. Patient is maintaining good urine output, she is on IV fluid at 75 mL per hour. Today the patient was given a short trial of pressure support of 12 and CPAP, did not do well, and she was moving very small tidal volumes and noted to be tachypneic on physical examination she did have scattered rhonchi and wheezes. Patient is obviously not ready for any weaning trials or extubation at this point. Chest x-ray continues to show small bilateral effusions with a right basilar atelectasis. Blood cultures have been negative and sputum cultures have been negative showing mostly normal respiratory patricia, has antibiotics have been discontinued. Patient remains mostly on bronchodilators, is also on GI and DVT prophylaxis Reevaluated today on 01/13/2023, patient remains in the ICU, intubated and mechanically ventilated. She is on assist control rate of 16 tidal volume 450 FiO2 40% and PEEP of 5 ABG showed a pO2 of 70 pCO2 52 pH of 7.47 hence no change was made in her ventilator settings. Patient remains on propofol at 20 mcg/kg/m IV fluid at KVO vital HP at 25 mL per hour not requiring any pressors. However the patient became extremely agitated yesterday in spite of maximal dose of propofol hence I started the patient on fentanyl at 0.5 mcg/kg per hour. And sh e remains on fentanyl propofol was cut down to 40 mics per kilo per minute. Chest x-ray is basically the same showing some bibasilar atelectasis especially at the right base. And small pleural effusions. WBC count is 7.1 hemoglobin 11.2 electrolytes are normal bicarb is 39, renal profile is normal blood sugar is 247 Reevaluated today on 01/14/2023, patient remains in the ICU, intubated and mech anically ventilated. She is on assist control rate of 16 tidal volume 450 FiO2 40% PEEP of 5 ABG showed a pO2 of 69 pCO2 58 pH of 7.43. Patient is still on propofol at 45 mcg/kg/m she is also on fentanyl 0.5 mics per kilo per hour receiving vital HP at 25 mL per hour. On lower doses of sedation, the patient seems to be appropriate according to the nurses, and follows simple instructions. However the patient continues to have significant abnormal lung findings with diffuse rhonchi and wheezes bilaterally, I feel the patient is not given be able to wean easily considering his severe underlying COPD, hence [facility] consulting Dr. Burgess for possible tracheostomy and PEG tube placement in the next 24-48 hours. In the meantime I will continue present supportive care measures. And continue present treatment plan. WBC count is 8.8 hemoglobin is 11.1. Basic metabolic profile is normal renal profile is normal, chest x-ray continues to show small bilateral pleural effusions and right lower lobe atelectasis, again strongly doubt pneumonia. Progress note dated 01/15/2023. 67-year-old female well-known to our service. She has a history of severe/end- stage oxygen-dependent COPD. She was admitted to the hospital on January 04 with respiratory failure and COPD exacerbation. She was intubated and mechanically ventilated on January 09. The patient currently is on volume assist control, rate 16, tidal volume 450, FiO2 40%, and PEEP of 5. Blood gases show pO2 78, pCO2 56, and a pH is 7.45. At 50 mcg/kg/m, and fentanyl at 1 mcg/kg/h. The patient's also getting saline at 10 mL an hour, and vital high protein at 25 mL an hour, which is goal. The patient will have a daily interruption of sedation today, on a pressure support of a CPAP of 5. The patient's peak airway pressures 43, and plateau pressure is 27. Such a large difference between the peak and plateau, the patient is likely not to be extubated today. White count 10.9, hemoglobin 11.2, hematocrit 34.1, with a normal platelet count. Sodium 137, potassium 4.5, chlorides 99, CO2 37, BUN 40, creatinine 0.65. Chest x-ray shows some cardiomegaly, and mild interstitial changes, possibly related to interstitial edema. Progress note dated 01/16/2023. 67-year-old female well-known to our service. She has a history of severe end- stage COPD. She was admitted to the hospital on January 04. At that time she had respiratory failure with COPD exacerbation. She required intubation on January 09. For the last 2 days we attempted a daily interruption of sedation, and spontaneous breathing trial. Unfortunately, she failed miserably, within minutes. Hence, it is likely that we will proceed with tracheostomy and PEG tub e placement. The patient is on volume assist control, rate 16, tidal volume 450, FiO2 40%, and PEEP of 5. PO2 71, pCO2 of 54, and pH is 7.47. The patient's currently on fentanyl, 1 mcg/kg/h, propofol 50 mcg/kg/m, and saline at KVO. The patient is getting vital high protein at goal, which is 25 mL an hour. Yesterday, she failed her SBT, after 2 minutes. White count 16.5, hemoglobin 11.1, hematocrit 34.5, and platelet count 206,000. Sodium 138, potassium 4.3, chlorides 98, CO2 35, BUN 42, creatinine 0.73. Microbiologic sampling is negative. Chest x-ray shows patchy and/or atelectasis. Progress note dated 01/17/2023. 67-year-old female with history of severe COPD. Her COPD is end stage. She was admitted to the hospital on January 04, for respiratory failure and COPD exacerbation. She got worse, and was intubated on January 09. She's been ventilated since. For the last 3 days, we did a daily interruption of sedation with a spontaneous breathing trial, and she did very poorly on all 3 attempts. Therefore, I think she is a candidate for tracheostomy and PEG tube placement. I did have a conversation with her sister yesterday, and her sister wanted to give her 1 additional attempt, today. She failed her trial today. The patient is on the volume assist control, rate 16, tidal volume 450, FiO2 40%, and PEEP of 5. Arterial blood gases show a PaO2 of 61, pCO2 of 56, and pH is 7.45. The patient is receiving saline at 10 mL an hour, propofol at 50 mcg/kg/m, fentanyl at 1 mcg/kg/h, and vital high protein at 25 mL an hour, which is goal. The patient will receive Lasix 40 mg IV push once, prior to her weaning trial. White count 13.7, within normal hemoglobin, hematocrit, and platelet count. Sodium 136, potassium 4.3, chlorides 97, CO2 35, BUN 41, and creatinine 0.66. Microbiology sampling has been negative. Chest x-ray shows a small right-sided pleural effusion, and some basilar atelectasis or infiltrate at the right base. Progress note dated 01/18/2023. 67-year-old female with a history of severe COPD. The patient was admitted to the hospital on January 04 for respiratory failure and COPD exacerbation. For worsening respiratory failure, she was intubated on January 09. She's been ventilated since. She's had multiple attempts at weaning, and has done poorly with each attempt. I did speak to the sister, who now because me that it's her brother that is making medical decisions for this patient. We're hoping to proceed to tracheostomy and PEG tube placement. Currently, she is on volume assist control, rate of 16, tidal volume 450, FiO2 50%, and PEEP of 5. Blood gases show pO2 70, pCO2 61, and a pH of 7.44. Saline is running at 20 mL an hour, propofol is a 35 mcg/kg/m, and fentanyl is at 1 mcg/kg/h. Tube feedings on hold. We will attempt another a daily interruption of sedation and spontaneous breathing trial today. White count 12.4, hemoglobin 11.4, hematocrit 34.2, and platelet count normal. Sodium 135, potassium 4.6, chlorides 96, CO2 35, BUN 38, creatinine 0.66. Microbiologic studies are negative. Chest x-ray shows similar findings of patchy airspace disease. Progress note dated 01/19/2023. 67-year-old female seen again in room 256. She was hospitalized on January 04, for respiratory failure and COPD exacerbation, and was intubated on January 09. She was maintained on the ventilator all along, and has had multiple weaning trials, without success. In fact, she feels miserably, within a few minutes. Currently, she is on the volume assist control, rate 16, tidal volume 450, FiO2 40%, PEEP of 5. Blood gases show pO2 62, pCO2 58, and pH is 7.44. She's getting propofol at 50 mcg/kg/m, fentanyl 1 mcg/kg/h, and saline at 10 mL an hour. He is receiving tube feedings at goal, which is 25 mL an hour. White count 12.1, hemoglobin 11.1, normal hematocrit, and normal platelet count. Sodium 134, potassium 3.8, Chlorides 96, CO2 40. BUN is 35, with a creatinine of 0.54. Cultures are negative. No chest x-ray today. Objective - Vital Signs Vital signs: Vital Signs Temp 98.2 F 01/19/23 08:00 Pulse 58 L 01/19/23 09:00 Resp 16 01/19/23 09:00 BP 147/86 01/19/23 07:00 Pulse Ox 92 L 01/19/23 09:00 FiO2 40 01/19/23 08:00 Intake & Output 01/18/23 01/19/23 01/19/23 18:59 06:59 18:59 Intake Total 951.260 619.719 23 Output Total 1030 575 40 Balance -78.740 44.719 -17 Weight 92.8 kg Intake: IV 266 276 23 ARTERIAL LINE. 36 36 3 Sodium Chloride 0.9% 1, 230 240 20 000 ml @ 20 mls/hr IV . Q24H [facility] Rx#:[id number] Intake, IV Titration 435.260 318.719 Amount Clevidipine Butyrate 25 50.565 mg In Empty Bag 1 bag @ 1 MG/HR 2 mls/hr IV .Q24H [facility] Rx#:[id number] Sodium Chloride 0.9% 80 100 82.573 ml @ 1 MCG/KG/HR 8.8 mls/ hr IV .[id number] [facility] with fentaNYL (PF) 1,000 mcg Rx#:[id number] propofoL 1,000 mg In 284.695 236.146 Empty Bag 1 bag @ 20 MCG/ KG/MIN 10.452 mls/hr IV . Q9H35M [facility] Rx#:[id number] Tube Feeding 100 25 Other 150 Output: Urine 1030 575 40 Other: Voiding Method Indwelling Catheter Indwelling Catheter ABP, PAP, CO, CI - Last Documented Arterial Blood Pressure 152/59 - Exam No acute distress, currently sedated, with an orally placed endotracheal tube. HEENT examination is grossly unremarkable. Neck supple. Full range of motion. No adenopathy thyromegaly or neck vein distention. Cardiovascular examination reveals regular rhythm rate. S1-S2 normal. No S3 or S4. No discernible murmur noted. Heart rate is 58 bpm. Heart sounds are distant. Lungs reveal expiratory rhonchi and wheezes. Breath sounds equal. Saturations are 92 %. Abdomen soft with bowel sounds, and without masses or tenderness. Extremities are intact. No cyanosis clubbing or edema. Skin is without rash or lesion. Neurologic examination cannot be adequately assessed at this time. - Labs CBC & Chem 7: 01/19/23 04:16 01/19/23 04:16 Labs: Abnormal Lab Results - Last 24 Hours (Table) 01/18/23 01/18/23 01/18/23 Range/Units 11:49 16:21 20:26 WBC (3.8-10.6) k/uL RBC (3.80-5.40) m/uL Hgb (11.4-16.0) gm/dL ABG pCO2 (35-45) mmHg ABG pO2 (83-108) mmHg ABG HCO3 (21-25) mmol/L ABG Total CO2 (19-24) mmol/L ABG O2 Saturation (94-97) % Sodium (137-145) mmol/L Chloride (98-107) mmol/L Carbon Dioxide (22-30) mmol/L BUN (7-17) mg/dL Glucose (74-99) mg/dL POC Glucose (mg/dL) 134 H 163 H 113 H (70-110) mg/dL Calcium (8.4-10.2) mg/dL 01/19/23 01/19/23 01/19/23 Range/Units 00:14 03:59 04:16 WBC 12.1 H (3.8-10.6) k/uL RBC 3.52 L (3.80-5.40) m/uL Hgb 11.1 L (11.4-16.0) gm/dL ABG pCO2 (35-45) mmHg ABG pO2 (83-108) mmHg ABG HCO3 (21-25) mmol/L ABG Total CO2 (19-24) mmol/L ABG O2 Saturation (94-97) % Sodium (137-145) mmol/L Chloride (98-107) mmol/L Carbon Dioxide (22-30) mmol/L BUN (7-17) mg/dL Glucose (74-99) mg/dL POC Glucose (mg/dL) 160 H 194 H (70-110) mg/dL Calcium (8.4-10.2) mg/dL 01/19/23 01/19/23 01/19/23 Range/Units 04:16 05:45 08:14 WBC (3.8-10.6) k/uL RBC (3.80-5.40) m/uL Hgb (11.4-16.0) gm/dL ABG pCO2 58 H (35-45) mmHg ABG pO2 62 L (83-108) mmHg ABG HCO3 40 H* (21-25) mmol/L ABG Total CO2 42 H (19-24) mmol/L ABG O2 Saturation 91.0 L (94-97) % Sodium 134 L (137-145) mmol/L Chloride 96 L (98-107) mmol/L Carbon Dioxide 40 H (22-30) mmol/L BUN 35 H (7-17) mg/dL Glucose 190 H (74-99) mg/dL POC Glucose (mg/dL) 198 H (70-110) mg/dL Calcium 7.7 L (8.4-10.2) mg/dL Assessment and Plan Assessment: Acute on chronic hypoxemic and hypercapnic respiratory failure, requiring intubation on 01/09/2023, with failure to wean from mechanical ventilation, despite numerous daily interruption of sedation, and spontaneous breathing trials. Failure to wean from mechanical ventilation. Possible underlying sepsis, with hypotension. Severe end-stage COPD. Chronic hypercapnic respiratory failure. History of left upper lobe nodule. Previous history of coronavirus associated pneumonia. Benign essential hypertension. History of rheumatoid arthritis. Chronic back pain. Prior history of tobacco use. Cushingoid habitus, secondary to chronic steroids. Gen. medical debility. Plan: Plan dated 01/15/2023. Labs, x-rays, and medications are reviewed. The patient may not be weaned and mobile at this point, given the large difference between the peak airway pressure, and a plateau pressure. We will attempt a daily interruption of sedation, and a spontaneous breathing trial. Family wants to hold off on the tracheostomy and PEG tube at this time, to see if the patient is possibly able to come off the ventilator. Prognosis remains very guarded. We will continue with GI and DVT prophylaxis. We continue with tube feeds. Arterial blood gases are reasonable. Plan dated 01/16/2023. The patient's doing about the same, she is chronically and critically ill, and his failed her spontaneous breathing trials, for the last 2 days. Labs, x-rays, medications are reviewed. She remains on fentanyl and propofol. She is getting tube feedings. The patient currently is a full code. Apparently her sister is questioning whether or not the patient should have a tracheostomy and PEG tube. We will attempt to talk to the sister. Patient's overall prognosis remains very poor. She is receiving tube feedings. She remains on GI and DVT prophylaxis. Plan dated 01/17/2023. Unfortunately, the patient again failed her spontaneous breathing trial. I spoke with the patient's sister yesterday, and she agreed to give her sister 1 additional attempt, at weaning. Again, she did very poorly. We will proceed with tracheostomy and PEG tube placement. Labs, x-rays, medications are reviewed. The patient remains on propofol, and fentanyl. She is receiving tube feedings. Blood gases are borderline. We will continue to follow the patient and make recommendations along the way. Prognosis is very guarded. Plan dated 01/18/2023. According to the sister, Candace, the person now making decisions for this patient is her brother. The patient is currently still on the mechanical ventilator. Previous attempts to weaning have been unsuccessful. Labs, x-rays, and medications are reviewed. We will continue to follow make recommendations were appropriate. The patient remains on propofol and fentanyl. Tube feedings on hold. Prognosis is guarded. Plan dated 01/19/2023. The patient's family can decide about whether or not to proceed with tracheostomy and PEG tube placement. We talked and then had nausea. Apparently her brother is now making medical decisions for the patient. Her sister, previously was. We will continue to follow the patient make recommendations along the way. Labs, x-rays, and medications are reviewed. Prognosis is guarded. Patient is receiving tube feedings. She still very significantly and quickly, on her spontaneous breathing trials. Time with Patient: Greater than 30
[2023-01-19] MEDS: SODIUM CHLORIDE 0.9% 80 ML with fentaNYL (PF) 1,000 MCG IV SCH ×4 (10:36→18:45)
[2023-01-19 11:44] LABS: Glucose,Whole Blood 158 mg/dL (70-110)
[2023-01-19] MEDS: NOREPINEPHRINE 4 MG in SODIUM CHLORIDE 0.9% 250 ML IV SCH (11:54)
--- NOTE | 2023-01-19 12:31 | P.PN ---
Subjective Progress Note Date: 01/19/23 CHIEF COMPLAINT: Respiratory failure, malnutrition HISTORY OF PRESENT ILLNESS: Patient is currently in the ICU intubated and on mechanical ventilation. Patient continues to fail weaning trials. Patient seen with Dr. Burgess PHYSICAL EXAM: VITAL SIGNS: Reviewed. GENERAL: Well-developed in no acute distress. ABDOMEN: Soft. Nondistended. Nontender. ASSESSMENT: 1. Respiratory failure 2. Moderate protein calorie malnutrition PLAN: -Patient scheduled for tracheostomy and PEG tube placement , 01/25/2023. Patient's family still wants more time before making a decision on tracheostomy and PEG tube placement Physician Control Room Technician note has been reviewed by physician. Signing provider agrees with the documented findings, assessment, and plan of care. Objective - Vital Signs Vital signs: Vital Signs Temp 98.2 F 01/19/23 08:00 Pulse 56 L 01/19/23 11:43 Resp 16 01/19/23 09:00 BP 147/86 01/19/23 07:00 Pulse Ox 92 L 01/19/23 09:00 FiO2 40 01/19/23 11:28 Intake & Output 01/18/23 01/19/23 01/19/23 18:59 06:59 18:59 Intake Total 951.260 619.719 300.92 Output Total 1030 575 315 Balance -78.740 44.719 -14.08 Weight 92.8 kg 92.8 kg Intake: IV 266 276 75 ARTERIAL LINE. 36 36 15 Sodium Chloride 0.9% 1, 230 240 60 000 ml @ 20 mls/hr IV . Q24H [facility] Rx#:[id number] Intake, IV Titration 435.260 318.719 95.92 Amount Clevidipine Butyrate 25 50.565 mg In Empty Bag 1 bag @ 1 MG/HR 2 mls/hr IV .Q24H [facility] Rx#:[id number] Sodium Chloride 0.9% 80 100 82.573 95.92 ml @ 1 MCG/KG/HR 8.8 mls/ hr IV .[id number] [facility] with fentaNYL (PF) 1,000 mcg Rx#:[id number] propofoL 1,000 mg In 284.695 236.146 Empty Bag 1 bag @ 20 MCG/ KG/MIN 10.452 mls/hr IV . Q9H35M [facility] Rx#:[id number] Tube Feeding 100 25 100 Other 150 30 Output: Urine 1030 575 315 Other: Voiding Method Indwelling Catheter Indwelling Catheter ABP, PAP, CO, CI - Last Documented Arterial Blood Pressure 152/59 - Labs CBC & Chem 7: 01/19/23 04:16 01/19/23 04:16 Labs: Abnormal Lab Results - Last 24 Hours (Table) 01/18/23 01/18/23 01/19/23 Range/Units 16:21 20:26 00:14 WBC (3.8-10.6) k/uL RBC (3.80-5.40) m/uL Hgb (11.4-16.0) gm/dL ABG pCO2 (35-45) mmHg ABG pO2 (83-108) mmHg ABG HCO3 (21-25) mmol/L ABG Total CO2 (19-24) mmol/L ABG O2 Saturation (94-97) % Sodium (137-145) mmol/L Chloride (98-107) mmol/L Carbon Dioxide (22-30) mmol/L BUN (7-17) mg/dL Glucose (74-99) mg/dL POC Glucose (mg/dL) 163 H 113 H 160 H (70-110) mg/dL Calcium (8.4-10.2) mg/dL 01/19/23 01/19/23 01/19/23 Range/Units 03:59 04:16 04:16 WBC 12.1 H (3.8-10.6) k/uL RBC 3.52 L (3.80-5.40) m/uL Hgb 11.1 L (11.4-16.0) gm/dL ABG pCO2 (35-45) mmHg ABG pO2 (83-108) mmHg ABG HCO3 (21-25) mmol/L ABG Total CO2 (19-24) mmol/L ABG O2 Saturation (94-97) % Sodium 134 L (137-145) mmol/L Chloride 96 L (98-107) mmol/L Carbon Dioxide 40 H (22-30) mmol/L BUN 35 H (7-17) mg/dL Glucose 190 H (74-99) mg/dL POC Glucose (mg/dL) 194 H (70-110) mg/dL Calcium 7.7 L (8.4-10.2) mg/dL 01/19/23 01/19/23 01/19/23 Range/Units 05:45 08:14 11:43 WBC (3.8-10.6) k/uL RBC (3.80-5.40) m/uL Hgb (11.4-16.0) gm/dL ABG pCO2 58 H (35-45) mmHg ABG pO2 62 L (83-108) mmHg ABG HCO3 40 H* (21-25) mmol/L ABG Total CO2 42 H (19-24) mmol/L ABG O2 Saturation 91.0 L (94-97) % Sodium (137-145) mmol/L Chloride (98-107) mmol/L Carbon Dioxide (22-30) mmol/L BUN (7-17) mg/dL Glucose (74-99) mg/dL POC Glucose (mg/dL) 198 H 158 H (70-110) mg/dL Calcium (8.4-10.2) mg/dL
[2023-01-19] MEDS: CLEVIDIPINE BUTYRATE 25 MG in EMPTY BAG 1 BAG IV SCH (16:05)
[2023-01-19 16:47] LABS: Glucose,Whole Blood 100 mg/dL (70-110)
[2023-01-19 21:04] LABS: Glucose,Whole Blood 172 mg/dL (70-110)
--- NOTE | 2023-01-19 21:12 | P.PN ---
Subjective Progress Note Date: 01/19/23 This is a pleasant 67 years old female with past medical history of advanced COPD advanced COPD on home oxygen dependent on 3-4 L at all times, obstructive sleep apnea CPAP dependent nightly, diastolic CHF hypertension, iron deficiency anemia, rheumatoid arthritis, and chronic back pain who presented to the ER because of worsening shortness of breath for a few days duration Patient currently is lying in bed in the emergency room 6, with BiPAP machine on with parameters of 15/6, FiO2 of 40%. Patient is tachypneic breathing with direct about 34-37. Patient looks tired and she could not provide much information, she cannot talk but she is awake and oriented. She follows commands. She has minimal chest movement with expiratory wheezing. She denies any pain, no chest pain she denies any GI or urinary symptoms. She moves all extremities symmetrically. vitals reviewed and patient is afebrile. Mild Leukocytosis of 12.2, Mild Thrombocytopenia 127. Hemoglobin Normal. INR 0.9. VBG Showing High PCO2 of 84, Low pH of 7.3. BNP showing high carbon dioxide at 49, creatinine normal. Liver enzymes not elevated. Troponin negative. ProBNP is 301. Glucose 128. Chest x-ray reviewed by myself showing enlarged heart with COPD changes. Minimal chest congestion. Patient started on dexamethasone, albuterol. EKG showing normal sinus rhythm at [address]-T changes. 01/05/2023 Patient remains in the ICU, she required BiPAP all the ninth yesterday except for one hour she got some rest. Today patient showed significant improvement, she is more alert awake, pleasant. Her mentation is back to normal. Her breathing is also improving with decrease respiratory rate into 18-20, per to more than 30 yesterday. Repeat chest x-ray looks similar findings to yesterday with no obvious infiltrate or consolidation. The heart is mildly enlarged, just x-ray reviewed by myself. Other vitals and labs looks stable. pro-calcitonin is slightly elevated at 0.20 She is currently receiving IV Solu-Medrol 60 mg as well as broad-spectrum antibiotics with vancomycin and cefepime Until doxycycline. Also she is on IV Lasix daily. 01/06/2023 pt today is significantly improved , she can talk easily off the bipap machine in the moring although she was using all night, she requires few liter of oxgyen per min like 4 only Because of significant improvement and she was moved out of the ICU Her treatment was the risk related, antibiotics vancomycin and doxycycline were stopped and Cefepime. IV Lasix Switched to Oral Dose of 40 Mg Daily. While She Kept on High Dose of IV Solu-Medrol 60 Mg. 01/07/2023 Patient today having some more breathing difficulty compared to yesterday however she still looks greatly although she still have some wheezing. She is saturating 90s on 4 L oxygen via nasal cannula, no much of accessory muscles and she can talk more freely. Her chest x-ray today showing worse than admission when I reviewed it but most likely this is because of the technique. She remains on IV Solu-Medrol, 60 mg. Cefepime, oral Lasix 40 mg daily. Patient did not need BiPAP last night. Patient wants to keep the [place] cath in Place because it's harder for her to get up 01/08/2023 Patient seen and evaluated in follow-up today with pulmonary following closely. Patient is continued on 4 L via nasal cannula as well as BiPAP. Patient continues on oral steroids along with inhalers and cefepime. Patient was started on cefepime empirically for concerns of pneumonia. Patient continues to be extremely dyspneic with minimal exertion and would recommend weaning FiO2 as tolerated. Patient normally wears a CPAP and has one for the outpatient setting although would recommend continuing with BiPAP especially at night from 8 PM to 6 AM. Continue BiPAP as needed as well. Patient extremely weak and has been progressively getting more weak with each admission. Patient has been hospitalized very frequently most recently and clinically very slow to improve. Case management following as there will be plans to return to rehab or possible inpatient rehab. Will await PT/OT therapy evaluation. Patient is currently afebrile denies chest pain or palpitations. Patient reports she is tolerating diet with no reports of nausea or vomiting noted. 01/09/2023 Patient is seen and evaluated in follow up today and per nursing staff was found this morning with her oxygen and BIpap mask off and O2 saturations in the 60's. Patient was placed back on bipap and numbers improved slightly although continued to be restless, combative, and not following commands. Ordered ativan to calm and was not effective. Patient extremely dyspneic and tachypneic and working with accessory muscle use. Luckily, pulmonary was rounding on the unit and ordered transfer to ICU for possible intubation and close monitoring. Patient is afebrile and continued on cefepime empirically and sputum cultures ordered. continued on breathing treatments as well as oral prednisone. 01/10/2023 Patient is seen in follow up today and continues to be in the ICU in critical condition. Patient continues on mechanical ventilation with an FI02 of 50% and peep is 5. Patient was off pressor support and off propofol and not tolerating with no plans for weaning off the vent at this time. Peg and tracheostomy is being considered in the next few days possibly. Patient overall prognosis is extremely poor and guarded at this time. PICC line is being ordered and pending. Patient is also continued on empiric antibiotics and awaiting cultures. Patient also placed back on IV steroids per pulmonary. Patient is afebrile. 01/11/2023 Patient is seen and evaluated in follow-up today continues to be in the MICU with pulmonary photo technologist following closely. Patient remains on mechanical ventilation working on weaning FiO2 as tolerated. FiO2 is currently at 45% with a PEEP of 5 and undergoing sedation holidays with no plans of weaning at this time. Patient was continued on Cefepime although cultures are negative and blood cultures remain negative will discontinue cefepime. Patient is continued on tube feeds and blood sugar slightly elevated will continue sliding scale and add low-dose long-acting twice daily and continue to monitor Accu-Cheks before meals and at bedtime. Recommend follow-up chest x-ray and labs in the a.m. 01/12/2023 Patient is seen and evaluated continues to be the ICU with sister at the bedside. Patient remains on mechanical ventilation with no plans of weaning at this time. FiO2 being adjusted down to 40% with a PEEP of 5 and patient is tolerating well. Patient is off pressor support as well as antibiotics and being closely monitored. Patient's blood sugars elevated and have added long- acting and will increase in continue to monitor closely. Chest x-ray today shows persistent bilateral effusions right greater than left with patchy densities and atelectasis. Patient is undergoing sedation holidays to monitor mental status. Sister at the bedside and discussed with Juventino and address their questions and concerns to the? Ability. Patient remains afebrile. Patient is continued on tube feeding and tolerating. Overall prognosis remains extremely g uarded. 01/13/2023 Patient is evaluated today continues to be in the ICU and undergoing weaning tri als of sedation and had CPAP trial yesterday and did not tolerate well became increasingly agitated on maximum propofol requiring sentinel. Propofol being titrated down. Patient continues off pressor support. Patient is maintained of IV antibiotics and is continued on IV steroids along with breathing treatments. Patient being started on lactulose unknown last bowel movement. Recommend daily chest x-rays and follow-up labs. Recommend to replace electrolytes per protocol. Blood sugars remain elevated and tolerating tube feeds and will continue sliding scale and increased long-acting to 20 units twice daily. Recommend Accu-Cheks before meals and at bedtime. 01/14/2023 Patient is seen in follow-up continues to be in the ICU maintained on mechanical ventilation with an FiO2 of 40% and PEEP is 5. No plans for trials of weaning today other than mild sedation holiday to assess mentation. Per nursing staff patient is following commands off sedation although does get quite restless and hypertensive and symptomatic no plans for sedation holiday today. Patient is continued on propofol and fentanyl and will continue. Patient is monitored off IV antibiotics and cultures have remained negative. Patient's blood sugars elevated and will add increased insulin covered and continue with current regimen. Pulmonary has consulted general surgery for possible tracheostomy and PEG tube placement and awaiting family decision and consent. 01/15/2023 The patient was seen and evaluated continues to be in the ICU under critical condition. Patient remains on mechanical ventilation with an FiO2 of 40% and PEEP is 5. Working on weaning trials in terms of sedation to monitor mentation with no plans of weaning from mechanical plan at this time. There were plans for possible PEG and trach this morning although family would like a few more days to see if patient is able to wean off the vent. Per pulmonary will attempt CPAP trials and assess for weaning. Chest x-ray today shows some congestion with no significant difference from previous. Patient is continued on IV Lasix daily along with IV steroids, propofol and fentanyl currently off antibiotic and pressor support. Prognosis remains extremely critical and guarded at this time. 01/16/2023 Patient is seen and evaluated in follow-up today continues to be in the ICU with overall poor and guarded prognosis. Patient remains on mechanical vent with an FiO2 of 40% and PEEP is 5. Continuing with daily sedation holiday trials and trialing spontaneous breathing trials although patient is feeling miserable. Pulmonary photo technologist leaning towards PEG and trach placement will need to discuss further with family. Patient is afebrile continued on IV steroids and breathing treatments is receiving IV Lasix daily and being closely monitored with blood sugars. Blood sugars are improved we'll continue current regimen. Patient continued on tube feedings and tolerating. 01/17/2023 Patient is seen and evaluated in follow-up today continues to be on mechanical ventilation with multiple attempts at weaning and breathing trials and failing miserably with pulmonary photo technologist following recommending PEG and trach placement in general surgery is following and will likely proceed with tracheostomy placement. Tube feedings are being placed on hold with possible intervention tomorrow. Patient continued on IV steroids along with sedation and breathing treatments with no significant change from yesterday. Patient remains on mechanical ventilation with an FiO2 of 40% and PEEP is 5. Patient also continues on propofol and fentanyl and has been off pressor support. Blood sugars were controlled and will continue current regimen. Patient is afebrile and maintained off antibiotics at this time. Cultures have remained negative. 01/18/2023 Patient is seen in the ICU continue to be on mechanical ventilation with an FiO2 of 40% and PEEP is 5. Pulmonary photo technologist following along with general surgery and awaiting family decision about possible PEG and trach. Brother, Juventino, who is the decision maker would like to wait until next week and continuing with weaning trials to see if she can come off of the vent. Overall prognosis is poor and guarded and will continue for now. Chest x-ray shows pleural effusions with no significant change from previous and patient is maintained on IV Lasix daily. Patient also continues on breathing treatments along with IV steroids. Blood sugars better controlled and tube feedings have been on hold although would recommend resuming for now if awaiting for PEG placement until next week. Labs reviewed. Patient is afebrile. 01/19/2023 Patient is seen and evaluated in follow-up today continues in the ICU on mechanical ventilation. Family discussing possible PEG/trach sometime next week if patient is unable to continue to wean off the vent. Patient is maintained on sedation and is off pressor support. We'll follow-up chest x-ray and labs in the a.m. Overall prognosis continues to remain guarded at this time. Review of systems: unable to obtain as patient is on mechanical vent and sedated All medications have been reviewed Active Medications Acetaminophen (Acetaminophen Tab 500 Mg Tab) 1,000 mg PO Q6HR PRN PRN Reason: Fever and/ or Pain Last Admin: 01/12/23 22:28 Dose: 1,000 mg Albuterol Sulfate (Albuterol Nebulized 2.5 Mg/3 Ml) 2.5 mg INHALATION RT-Q4H COUNT INCLUDES THE [facility] Last Admin: 01/19/23 19:52 Dose: 2.5 mg Artificial Tears (Artificial Tears-Hypromellose Drops 15 Ml Btl) 2 drops BOTH EYES QID PRN PRN Reason: Dry Eye(s) Budesonide (Budesonide 1 Mg/2 Ml Nebu) 1 mg INHALATION RT-BID COUNT INCLUDES THE [facility] Last Admin: 01/19/23 19:52 Dose: 1 mg Carvedilol (Carvedilol 12.5 Mg Tab) 12.5 mg PO BID-W/MEALS COUNT INCLUDES THE [facility] Last Admin: 01/19/23 16:50 Dose: 12.5 mg Chlorhexidine Gluconate (Chlorhexidine Gluconate 15 Ml Cup) 15 ml MUCOUS MEM BID COUNT INCLUDES THE [facility] Last Admin: 01/19/23 09:26 Dose: 15 ml Dextrose/Water (Dextrose 50% Syringe 50 Ml) 25 ml IVP PER PROTOCOL PRN; Protocol PRN Reason: Hypoglycemia Dextrose/Water (Dextrose 50% Syringe 50 Ml) 50 ml IVP PER PROTOCOL PRN; Protocol PRN Reason: Hypoglycemia Duloxetine HCl (Duloxetine Hcl 30 Mg Capsule.Dr) 30 mg PO DAILY@0600 COUNT INCLUDES THE [facility] Last Admin: 01/19/23 05:28 Dose: 30 mg Formoterol Fumarate (Formoterol Fumarate 20 Mcg/2 Ml Nebu) 20 mcg INHALATION RT-BID COUNT INCLUDES THE [facility] Last Admin: 01/19/23 19:52 Dose: 20 mcg Furosemide (Furosemide 10 Mg/Ml 2 Ml Vial) 20 mg IV DAILY COUNT INCLUDES THE [facility] Last Admin: 01/19/23 09:27 Dose: 20 mg Heparin Sodium (Porcine) (Heparin Sodium,Porcine/Pf 5,000 Unit/0.5 Ml Syringe) 5,000 unit SQ Q12HR COUNT INCLUDES THE [facility] Last Admin: 01/19/23 09:27 Dose: 5,000 unit Sodium Chloride (Saline 0.9%) 1,000 mls @ 20 mls/hr IV .Q24H COUNT INCLUDES THE [facility] Last Admin: 01/19/23 16:51 Dose: 20 mls/hr Propofol 1,000 mg/ IV Solution 100 mls @ 10.452 mls/hr IV .Q9H35M COUNT INCLUDES THE [facility]; Protocol Last Admin: 01/19/23 16:49 Dose: 50 mcg/kg/min, 26.13 mls/hr Norepinephrine Bitartrate 4 mg (/ Sodium Chloride) 254 mls @ 9.956 mls/hr IV .Q24H COUNT INCLUDES THE [facility]; Protocol Last Admin: 01/19/23 11:54 Dose: Not Given Fentanyl Citrate 1,000 mcg/ (Sodium Chloride) 100 mls @ 8.8 mls/hr IV .[id number] COUNT INCLUDES THE [facility] Last Admin: 01/19/23 18:45 Dose: 1 mcg/kg/hr, 8.8 mls/hr Clevidipine 25 mg/ IV Solution 50 mls @ 2 mls/hr IV .Q24H COUNT INCLUDES THE [facility]; Protocol Last Admin: 01/19/23 16:05 Dose: Not Given Insulin Aspart (Insulin Aspart (Novolog) 100 Unit/Ml Vial) 0 unit SQ Q4H COUNT INCLUDES THE [facility]; Protocol Last Admin: 01/19/23 16:46 Dose: Not Given Insulin Aspart (Insulin Aspart (Novolog) 100 Unit/Ml Vial) 5 unit SQ Q4H COUNT INCLUDES THE [facility] Last Admin: 01/19/23 16:46 Dose: Not Given Insulin Detemir (Insulin Detemir (Levemir) 100 Unit/Ml Syr) 20 unit SQ BID@0700,2100 COUNT INCLUDES THE [facility] Last Admin: 01/19/23 06:54 Dose: 20 unit Ipratropium [place] (Ipratropium 0.5 Mg/2.5 Ml Nebu) 0.5 mg INHALATION RT-Q4H COUNT INCLUDES THE [facility] Last Admin: 01/19/23 19:52 Dose: 0.5 mg Lactulose (Lactulose 20 Gm/30 Ml Cup) 20 gm PO BID COUNT INCLUDES THE [facility] Last Admin: 01/19/23 09:27 Dose: 20 gm Methylprednisolone Sodium Succinate (Methylprednisolone Sod Succi 125 Mg/2 Ml Vial) 60 mg IV Q6HR COUNT INCLUDES THE [facility] Last Admin: 01/19/23 16:50 Dose: 60 mg Miscellaneous Information (Potassium Replacement Protocol 1 Each Misc) 1 each MISCELLANE DAILY PRN; Protocol PRN Reason: Per Protocol Miscellaneous Information (Magnesium Replacement Protocol 1 Each Misc) 1 each MISCELLANE DAILY PRN; Protocol PRN Reason: Per Protocol Montelukast Sodium (Montelukast 10 Mg Tab) 10 mg PO HS COUNT INCLUDES THE [facility] Last Admin: 01/18/23 21:42 Dose: 10 mg Naloxone HCl (Naloxone 0.4 Mg/Ml 1 Ml Vial) 0.2 mg IV Q2M PRN PRN Reason: Opioid Reversal Duoneb ([id number] (/Ipratropium0.5mg)) 1 each INHALATION RT-QID COUNT INCLUDES THE [facility] Last Admin: 01/09/23 16:12 Dose: 1 each Pantoprazole Sodium (Pantoprazole 40 Mg/10 Ml Vial) 40 mg IVP BID COUNT INCLUDES THE [facility] Last Admin: 01/19/23 09:27 Dose: 40 mg Polyethylene Glycol (Polyethylene Glycol 3350 17 Gm Powd.Pack) 17 gm PO DAILY COUNT INCLUDES THE [facility] Last Admin: 01/19/23 09:27 Dose: 17 gm Ropinirole HCl (Ropinirole Hcl 4 Mg Tablet) 4 mg PO HS COUNT INCLUDES THE [facility] Last Admin: 01/18/23 21:46 Dose: 4 mg Theophylline (Theophylline 24 Hour 400 Mg Cap.Er.24h) 400 mg PO DAILY@0600 COUNT INCLUDES THE [facility] Last Admin: 01/19/23 05:28 Dose: 400 mg Tobramycin/Dexamethasone (Tobra-Dexamet 0.3-0.1% Ophth Drops 2.5 Ml Btl) 2 drops RIGHT EYE Q4HR COUNT INCLUDES THE [facility] Last Admin: 01/19/23 16:50 Dose: 2 drops Verapamil HCl (Verapamil 40 Mg Tab) 40 mg PO TID COUNT INCLUDES THE [facility] Last Admin: 01/19/23 16:50 Dose: 40 mg Physical exam : GENERAL: The patient is on mechanical vent with an FI02 of 40% and peep is 5. Sedated. Well developed, well nourished. obese HEENT: Pupils are round and equally reacting to light. EOMI. No scleral icterus. No conjunctival pallor. Normocephalic, atraumatic. No pharyngeal erythema. No thyromegaly. CARDIOVASCULAR: S1 and S2 muffled PULMONARY: diminished breath sounds bilaterally with course rhonchi, faint crackles noted at the bases ABDOMEN: Soft, nontender, obese. nondistended, normoactive bowel sounds. No palpable organomegaly. MUSCULOSKELETAL: No joint swelling or deformity. EXTREMITIES: No cyanosis, clubbing, or pedal edema. NEUROLOGICAL: unable to assess, on sedation of propofol and fentanyl SKIN: No rashes. no petechiae. Assessment: Acute COPD exacerbation Acute on chronic hypoxic respiratory failure patient is normally at home on 3 L nasal cannula, now requriing mechanical ventilation on 01/09/2023 Acute respiratory acidosis Steroid-induced hyperglycemia Altered mental status possibly secondary to C02 narcosis sepsis, doubt septic shock, sepsis mostly due to hypovolemia and hypotension, requiring pressor support, now off pressor support Acute on chronic hypercapnic respiratory failure Chronic leukocytosis History of COVID-19 pneumonia Benign essential hypertension History of rheumatoid osteoarthritis Chronic back pain Former smoker Full code Plan: Recommend to continue with current medications and Patient continues on mechanical vent with an FI02 of 40% and peep of 5 and being closely monitored in the ICU. Continued on IV steroids and breathing inhalational treatments. Pulmonary following closely recommending tracheostomy and PEG tube placement and family would like to wait until next week to see if patient is able to be weaned off. General surgery following and would not be available to perform the PEG/trach until next week. Patient has had multiple attempts on spontaneous breathing trials and failing miserably. We'll continue to monitor closely recommend monitoring blood sugars before meals at bedtime and continuing with sliding scale and long-acting. Tube Feedings resumed and tolerating Currently undergoing sedation trials to monitor mental status Per nursing staff patient does follow commands off sedation Due to multiple complex medical issues, overall prognosis is extremely poor and guarded The impression and plan of care has been dictated by Teresa Portillo, Nurse Practitioner as directed. Dr. Durga MD I have performed a history and examination and MDM of this patient, discussed the same with the dictator, and agree with the dictator's assessment and plan as written ,documented as a scribe. Based on total visit time, I have performed more than 50% of the visit. Objective - Vital Signs Vital signs: Vital Signs Temp 98.1 F 01/19/23 16:00 Pulse 61 01/19/23 20:18 Resp 16 01/19/23 19:00 BP 147/86 01/19/23 18:00 Pulse Ox 92 L 01/19/23 19:00 FiO2 40 01/19/23 19:55 Intake & Output 01/19/23 01/19/23 01/20/23 06:59 18:59 06:59 Intake Total 619.719 975.565 Output Total 575 1005 Balance 44.719 -29.435 Weight 92.8 kg 92.8 kg Intake: IV 276 179 ARTERIAL LINE. 36 39 Sodium Chloride 0.9% 1, 240 140 000 ml @ 20 mls/hr IV . Q24H COUNT INCLUDES THE [facility] Rx#:[id number] Intake, IV Titration 318.719 406.565 Amount Sodium Chloride 0.9% 80 82.573 167.64 ml @ 1 MCG/KG/HR 8.8 mls/ hr IV .[id number] LATESHA with fentaNYL (PF) 1,000 mcg Rx#:[id number] propofoL 1,000 mg In 236.146 238.925 Empty Bag 1 bag @ 20 MCG/ KG/MIN 10.452 mls/hr IV . Q9H35M COUNT INCLUDES THE [facility] Rx#:[id number] Tube Feeding 25 300 Other 90 Output: Urine 575 1005 Other: Voiding Method Indwelling Catheter Indwelling Catheter ABP, PAP, CO, CI - Last Documented Arterial Blood Pressure 105/51 - Labs CBC & Chem 7: 01/19/23 04:16 01/19/23 04:16 Labs: Abnormal Lab Results - Last 24 Hours (Table) 01/19/23 01/19/23 01/19/23 Range/Units 00:14 03:59 04:16 WBC 12.1 H (3.8-10.6) k/uL RBC 3.52 L (3.80-5.40) m/uL Hgb 11.1 L (11.4-16.0) gm/dL ABG pCO2 (35-45) mmHg ABG pO2 (83-108) mmHg ABG HCO3 (21-25) mmol/L ABG Total CO2 (19-24) mmol/L ABG O2 Saturation (94-97) % Sodium (137-145) mmol/L Chloride (98-107) mmol/L Carbon Dioxide (22-30) mmol/L BUN (7-17) mg/dL Glucose (74-99) mg/dL POC Glucose (mg/dL) 160 H 194 H (70-110) mg/dL Calcium (8.4-10.2) mg/dL 01/19/23 01/19/23 01/19/23 Range/Units 04:16 05:45 08:14 WBC (3.8-10.6) k/uL RBC (3.80-5.40) m/uL Hgb (11.4-16.0) gm/dL ABG pCO2 58 H (35-45) mmHg ABG pO2 62 L (83-108) mmHg ABG HCO3 40 H* (21-25) mmol/L ABG Total CO2 42 H (19-24) mmol/L ABG O2 Saturation 91.0 L (94-97) % Sodium 134 L (137-145) mmol/L Chloride 96 L (98-107) mmol/L Carbon Dioxide 40 H (22-30) mmol/L BUN 35 H (7-17) mg/dL Glucose 190 H (74-99) mg/dL POC Glucose (mg/dL) 198 H (70-110) mg/dL Calcium 7.7 L (8.4-10.2) mg/dL 01/19/23 01/19/23 Range/Units 11:43 21:03 WBC (3.8-10.6) k/uL RBC (3.80-5.40) m/uL Hgb (11.4-16.0) gm/dL ABG pCO2 (35-45) mmHg ABG pO2 (83-108) mmHg ABG HCO3 (21-25) mmol/L ABG Total CO2 (19-24) mmol/L ABG O2 Saturation (94-97) % Sodium (137-145) mmol/L Chloride (98-107) mmol/L Carbon Dioxide (22-30) mmol/L BUN (7-17) mg/dL Glucose (74-99) mg/dL POC Glucose (mg/dL) 158 H 172 H (70-110) mg/dL Calcium (8.4-10.2) mg/dL
[2023-01-19] MEDS: MONTELUKAST 10 MG TAB PO SCH (21:33)
[2023-01-19] MEDS: rOPINIRole HCL 4 MG TABLET PO SCH (21:41)
[2023-01-20] MEDS: IPRATROPIUM 0.5 MG/2.5 ML NEBU INHALATION SCH ×6 (00:23→20:11)
[2023-01-20] MEDS: ALBUTEROL NEBULIZED 2.5 MG/3 ML INHALATION SCH ×6 (00:23→20:11)
[2023-01-20] MEDS: methylPREDNISolone SOD SUCCI 125 MG/2 ML VIAL IV SCH ×4 (00:45→17:20)
[2023-01-20 01:27] LABS: Glucose,Whole Blood 156 mg/dL (70-110)
[2023-01-20] MEDS: INSULIN ASPART (NovoLOG) 100 UNIT/ML VIAL SQ SCH ×12 (01:39→20:58)
[2023-01-20] MEDS: TOBRA-DEXAMET 0.3-0.1% OPHTH DROPS 2.5 ML BTL RIGHT EYE SCH ×6 (01:39→21:00)
[2023-01-20] MEDS: SODIUM CHLORIDE 0.9% 80 ML with fentaNYL (PF) 1,000 MCG IV SCH ×6 (03:32→14:47)
[2023-01-20 04:40] LABS: Glucose,Whole Blood 156 mg/dL (70-110)
[2023-01-20 04:57] LABS: HCT 37.5 % (34.0-46.0); MCH 31.4 pg (25.0-35.0); MCHC 31.9 g/dL (31.0-37.0); MCV 98.6 fL (80.0-100.0); Mean Platelet Volume 9.6; Platelet Count 209 k/uL (150-450); RDW 15.4 % (11.5-15.5); WBC 17.4 k/uL (3.8-10.6)
[2023-01-20 05:07] LABS: African American GFR (CKD) >90 (>60 ml/min/1.73 sqM); Blood Urea Nitrogen 38 mg/dL (7-17); Chloride 94 mmol/L (98-107); Glucose 157 mg/dL (74-99); Non-African American GFR(CKD) >90 (>60 ml/min/1.73 sqM); Potassium 4.3 mmol/L (3.5-5.1); Sodium 135 mmol/L (137-145)
[2023-01-20 05:13] LABS: Anion Gap 5 mmol/L
[2023-01-20 05:26] LABS: Carbon Dioxide 36 mmol/L (22-30)
[2023-01-20 05:57] LABS: ABG Base Excess 16.1 mmol/L; ABG Oxygen Saturation 94.2 % (94-97); ABG PCO2 53 mmHg (35-45); ABG PH 7.48 (7.35-7.45); ABG PO2 69 mmHg (83-108); ABG TCO2 41 mmol/L (19-24); Allen Test Performed? Yes
[2023-01-20 06:02] LABS: ABG HCO3 40 mmol/L (21-25)
[2023-01-20] MEDS: THEOPHYLLINE 24 HOUR 400 MG CAP.ER.24H PO SCH (06:53)
[2023-01-20] MEDS: DULoxetine HCL 30 MG CAPSULE.DR PO SCH (06:53)
[2023-01-20] MEDS: carvediloL 12.5 MG TAB PO SCH ×2 (06:53→18:17)
[2023-01-20 07:41] LABS: Glucose,Whole Blood 149 mg/dL (70-110)
[2023-01-20] MEDS: BUDESONIDE 1 MG/2 ML NEBU INHALATION SCH ×2 (07:51→20:11)
--- NOTE | 2023-01-20 07:53 | XR ---
EXAMINATION TYPE: XR chest 1V portable DATE OF EXAM: 01/20/2023 COMPARISON: 01/18/2023 INDICATION: Difficulty breathing, ventilated short of breath TECHNIQUE: Single frontal view of the chest is obtained. FINDINGS: The heart size is normal. The pulmonary vasculature is normal. There is an improving right lower lobe infiltrate. There is some persistence of some streak opacity a t the left base. Endotracheal tube tip is above the rod. Nasogastric tube transverses the thorax. Left side PICC ne has a tip in the superior vena cava region. IMPRESSION: 1. Improving right lower lobe infiltrate. 2. Persistent streaky atelectasis left base. 3. Lines and catheters discussed above
[2023-01-20] MEDS: INSULIN DETEMIR (LEVEMIR) 100 UNIT/ML SYR SQ SCH ×2 (08:14→21:28)
[2023-01-20] MEDS: LACTULOSE 20 GM/30 ML CUP PO SCH ×2 (08:14→21:10)
[2023-01-20] MEDS: PANTOPRAZOLE 40 MG/10 ML VIAL IVP SCH ×2 (08:14→21:11)
[2023-01-20] MEDS: HEPARIN SODIUM,PORCINE/PF 5,000 UNIT/0.5 ML SYRINGE SQ SCH ×2 (08:14→21:10)
[2023-01-20] MEDS: polyethylene glycoL 3350 17 GM POWD.PACK PO SCH (08:14)
[2023-01-20] MEDS: FUROSEMIDE 10 MG/ML 2 ML VIAL IV SCH (08:14)
[2023-01-20] MEDS: CHLORHEXIDINE GLUCONATE 15 ML CUP MUCOUS MEM SCH ×2 (08:14→21:10)
[2023-01-20] MEDS: VERAPAMIL 40 MG TAB PO SCH ×3 (08:15→21:10)
[2023-01-20] MEDS: FORMOTEROL FUMARATE 20 MCG/2 ML NEBU INHALATION SCH ×2 (08:22→20:11)
[2023-01-20] MEDS: NOREPINEPHRINE 4 MG in SODIUM CHLORIDE 0.9% 250 ML IV SCH (08:56)
--- NOTE | 2023-01-20 11:05 | P.PN ---
Subjective Progress Note Date: 01/20/23 Principal diagnosis: Respiratory failure The patient remains on the ventilator. Family apparently still in the process of deciding whether they want to proceed with tracheostomy and PEG tube placement. Objective - Vital Signs Vital signs: Vital Signs Temp 97.7 F 01/20/23 08:00 Pulse 52 L 01/20/23 10:00 Resp 16 01/20/23 10:00 BP 109/55 01/20/23 10:00 Pulse Ox 90 L 01/20/23 10:00 FiO2 40 01/20/23 08:00 Intake & Output 01/19/23 01/20/23 01/20/23 18:59 06:59 18:59 Intake Total 975.565 520.293 683.252 Output Total 1005 400 485 Balance -29.435 120.293 198.252 Weight 92.8 kg 93 kg Intake: IV 179 143 65 ARTERIAL LINE. 39 33 15 Sodium Chloride 0.9% 1, 140 110 50 000 ml @ 20 mls/hr IV . Q24H COUNTS INCLUDE 234 BEDS AT THE [facility] Rx#:[id number] Intake, IV Titration 406.565 377.293 158.252 Amount Sodium Chloride 0.9% 80 167.64 77.293 44.587 ml @ 1 MCG/KG/HR 8.8 mls/ hr IV .[id number] [facility] with fentaNYL (PF) 1,000 mcg Rx#:[id number] propofoL 1,000 mg In 238.925 300 113.665 Empty Bag 1 bag @ 20 MCG/ KG/MIN 10.452 mls/hr IV . Q9H35M COUNTS INCLUDE 234 BEDS AT THE [facility] Rx#:[id number] Tube Feeding 300 340 Other 90 120 Output: Urine 1005 400 485 Other: Voiding Method Indwelling Catheter Indwelling Catheter Indwelling Catheter ABP, PAP, CO, CI - Last Documented Arterial Blood Pressure 103/58 - Exam Abdomen: Soft, nontender, nondistended - Labs CBC & Chem 7: 01/20/23 04:30 01/20/23 04:30 Labs: Abnormal Lab Results - Last 24 Hours (Table) 01/19/23 01/19/23 01/20/23 Range/Units 11:43 21:03 01:25 WBC (3.8-10.6) k/uL ABG pH (7.35-7.45) ABG pCO2 (35-45) mmHg ABG pO2 (83-108) mmHg ABG HCO3 (21-25) mmol/L ABG Total CO2 (19-24) mmol/L Sodium (137-145) mmol/L Chloride (98-107) mmol/L Carbon Dioxide (22-30) mmol/L BUN (7-17) mg/dL Glucose (74-99) mg/dL POC Glucose (mg/dL) 158 H 172 H 156 H (70-110) mg/dL Calcium (8.4-10.2) mg/dL 01/20/23 01/20/23 01/20/23 Range/Units 04:30 04:30 04:38 WBC 17.4 H (3.8-10.6) k/uL ABG pH (7.35-7.45) ABG pCO2 (35-45) mmHg ABG pO2 (83-108) mmHg ABG HCO3 (21-25) mmol/L ABG Total CO2 (19-24) mmol/L Sodium 135 L (137-145) mmol/L Chloride 94 L (98-107) mmol/L Carbon Dioxide 36 H (22-30) mmol/L BUN 38 H (7-17) mg/dL Glucose 157 H (74-99) mg/dL POC Glucose (mg/dL) 156 H (70-110) mg/dL Calcium 8.0 L (8.4-10.2) mg/dL 01/20/23 01/20/23 Range/Units 05:57 07:40 WBC (3.8-10.6) k/uL ABG pH 7.48 H (7.35-7.45) ABG pCO2 53 H (35-45) mmHg ABG pO2 69 L (83-108) mmHg ABG HCO3 40 H* (21-25) mmol/L ABG Total CO2 41 H (19-24) mmol/L Sodium (137-145) mmol/L Chloride (98-107) mmol/L Carbon Dioxide (22-30) mmol/L BUN (7-17) mg/dL Glucose (74-99) mg/dL POC Glucose (mg/dL) 149 H (70-110) mg/dL Calcium (8.4-10.2) mg/dL Assessment and Plan (1) Acute respiratory failure with hypercapnia Narrative/Plan: Patient remains on the ventilator. Await family decision regarding surgical intervention for tracheostomy and PEG tube placement. Current Visit: Yes Status: Acute Code(s): J96.02 - ACUTE RESPIRATORY FAILURE WITH HYPERCAPNIA SNOMED Code(s): 689249132
--- NOTE | 2023-01-20 11:10 | P.PN ---
Subjective Progress Note Date: 01/20/23 Principal diagnosis: Respiratory failure. Reevaluated today on 01/11/2023, patient remains intubated and mechanically ventilated. She is on assist control rate of 16 tidal volume 450 FiO2 50% and PEEP of 5 ABG showed a pO2 of 95 pCO2 56 pH of 7.41, I cut down her FiO2 to 45%. Patient remains on propofol at 35 mcg/kg/m she is also on vitamin HP/enteral feeding at 30 mL per hour, and she is on IV fluid to KVO. Patient remains sedated, he is hemodynamically stable, not requiring any pressors. Remains on GI and DVT prophylaxis, antibiotics have been discontinued since all the cultures have been negative including blood cultures and sputum cultures so far. Patient was on cefepime which I will discontinue. Chest x-ray showed tiny right-sided pleural effusion and left pleural effusion with bibasilar atelectasis, no clear-cut evidence of pneumonia CBC is normal and basic metabolic is unremarkable Reevaluated today on 01/12/2023, patient remains in the ICU, intubated and mechanically ventilated. Patient is on assist control rate of 16 tidal volume 450 FiO2 45% and PEEP of 5 ABG showed a pO2 of 78 pCO2 of 50 pH of 7.47, FiO2 was cut down to 40%. Remains on propofol at 20 mcg/kg/m, not requiring any pressors, she is on vital HP/for enteral nutritional support. It is at 35 mL per hour. Patient is maintaining good urine output, she is on IV fluid at 75 mL per hour. Today the patient was given a short trial of pressure support of 12 and CPAP, did not do well, and she was moving very small tidal volumes and noted to be tachypneic on physical examination she did have scattered rhonchi and wheezes. Patient is obviously not ready for any weaning trials or extubation at this point. Chest x-ray continues to show small bilateral effusions with a right basilar atelectasis. Blood cultures have been negative and sputum cultures have been negative showing mostly normal respiratory patricia, has antibiotics have been discontinued. Patient remains mostly on bronchodilators, is also on GI and DVT prophylaxis Reevaluated today on 01/13/2023, patient remains in the ICU, intubated and mechanically ventilated. She is on assist control rate of 16 tidal volume 450 FiO2 40% and PEEP of 5 ABG showed a pO2 of 70 pCO2 52 pH of 7.47 hence no change was made in her ventilator settings. Patient remains on propofol at 20 mcg/kg/m IV fluid at KVO vital HP at 25 mL per hour not requiring any pressors. However the patient became extremely agitated yesterday in spite of maximal dose of propofol hence I started the patient on fentanyl at 0.5 mcg/kg per hour. And sh e remains on fentanyl propofol was cut down to 40 mics per kilo per minute. Chest x-ray is basically the same showing some bibasilar atelectasis especially at the right base. And small pleural effusions. WBC count is 7.1 hemoglobin 11.2 electrolytes are normal bicarb is 39, renal profile is normal blood sugar is 247 Reevaluated today on 01/14/2023, patient remains in the ICU, intubated and mech anically ventilated. She is on assist control rate of 16 tidal volume 450 FiO2 40% PEEP of 5 ABG showed a pO2 of 69 pCO2 58 pH of 7.43. Patient is still on propofol at 45 mcg/kg/m she is also on fentanyl 0.5 mics per kilo per hour receiving vital HP at 25 mL per hour. On lower doses of sedation, the patient seems to be appropriate according to the nurses, and follows simple instructions. However the patient continues to have significant abnormal lung findings with diffuse rhonchi and wheezes bilaterally, I feel the patient is not given be able to wean easily considering his severe underlying COPD, hence [facility] consulting Dr. Burgess for possible tracheostomy and PEG tube placement in the next 24-48 hours. In the meantime I will continue present supportive care measures. And continue present treatment plan. WBC count is 8.8 hemoglobin is 11.1. Basic metabolic profile is normal renal profile is normal, chest x-ray continues to show small bilateral pleural effusions and right lower lobe atelectasis, again strongly doubt pneumonia. Progress note dated 01/15/2023. 67-year-old female well-known to our service. She has a history of severe/end- stage oxygen-dependent COPD. She was admitted to the hospital on January 04 with respiratory failure and COPD exacerbation. She was intubated and mechanically ventilated on January 09. The patient currently is on volume assist control, rate 16, tidal volume 450, FiO2 40%, and PEEP of 5. Blood gases show pO2 78, pCO2 56, and a pH is 7.45. At 50 mcg/kg/m, and fentanyl at 1 mcg/kg/h. The patient's also getting saline at 10 mL an hour, and vital high protein at 25 mL an hour, which is goal. The patient will have a daily interruption of sedation today, on a pressure support of a CPAP of 5. The patient's peak airway pressures 43, and plateau pressure is 27. Such a large difference between the peak and plateau, the patient is likely not to be extubated today. White count 10.9, hemoglobin 11.2, hematocrit 34.1, with a normal platelet count. Sodium 137, potassium 4.5, chlorides 99, CO2 37, BUN 40, creatinine 0.65. Chest x-ray shows some cardiomegaly, and mild interstitial changes, possibly related to interstitial edema. Progress note dated 01/16/2023. 67-year-old female well-known to our service. She has a history of severe end- stage COPD. She was admitted to the hospital on January 04. At that time she had respiratory failure with COPD exacerbation. She required intubation on January 09. For the last 2 days we attempted a daily interruption of sedation, and spontaneous breathing trial. Unfortunately, she failed miserably, within minutes. Hence, it is likely that we will proceed with tracheostomy and PEG tub e placement. The patient is on volume assist control, rate 16, tidal volume 450, FiO2 40%, and PEEP of 5. PO2 71, pCO2 of 54, and pH is 7.47. The patient's currently on fentanyl, 1 mcg/kg/h, propofol 50 mcg/kg/m, and saline at KVO. The patient is getting vital high protein at goal, which is 25 mL an hour. Yesterday, she failed her SBT, after 2 minutes. White count 16.5, hemoglobin 11.1, hematocrit 34.5, and platelet count 206,000. Sodium 138, potassium 4.3, chlorides 98, CO2 35, BUN 42, creatinine 0.73. Microbiologic sampling is negative. Chest x-ray shows patchy and/or atelectasis. Progress note dated 01/17/2023. 67-year-old female with history of severe COPD. Her COPD is end stage. She was admitted to the hospital on January 04, for respiratory failure and COPD exacerbation. She got worse, and was intubated on January 09. She's been ventilated since. For the last 3 days, we did a daily interruption of sedation with a spontaneous breathing trial, and she did very poorly on all 3 attempts. Therefore, I think she is a candidate for tracheostomy and PEG tube placement. I did have a conversation with her sister yesterday, and her sister wanted to give her 1 additional attempt, today. She failed her trial today. The patient is on the volume assist control, rate 16, tidal volume 450, FiO2 40%, and PEEP of 5. Arterial blood gases show a PaO2 of 61, pCO2 of 56, and pH is 7.45. The patient is receiving saline at 10 mL an hour, propofol at 50 mcg/kg/m, fentanyl at 1 mcg/kg/h, and vital high protein at 25 mL an hour, which is goal. The patient will receive Lasix 40 mg IV push once, prior to her weaning trial. White count 13.7, within normal hemoglobin, hematocrit, and platelet count. Sodium 136, potassium 4.3, chlorides 97, CO2 35, BUN 41, and creatinine 0.66. Microbiology sampling has been negative. Chest x-ray shows a small right-sided pleural effusion, and some basilar atelectasis or infiltrate at the right base. Progress note dated 01/18/2023. 67-year-old female with a history of severe COPD. The patient was admitted to the hospital on January 04 for respiratory failure and COPD exacerbation. For worsening respiratory failure, she was intubated on January 09. She's been ventilated since. She's had multiple attempts at weaning, and has done poorly with each attempt. I did speak to the sister, who now because me that it's her brother that is making medical decisions for this patient. We're hoping to proceed to tracheostomy and PEG tube placement. Currently, she is on volume assist control, rate of 16, tidal volume 450, FiO2 50%, and PEEP of 5. Blood gases show pO2 70, pCO2 61, and a pH of 7.44. Saline is running at 20 mL an hour, propofol is a 35 mcg/kg/m, and fentanyl is at 1 mcg/kg/h. Tube feedings on hold. We will attempt another a daily interruption of sedation and spontaneous breathing trial today. White count 12.4, hemoglobin 11.4, hematocrit 34.2, and platelet count normal. Sodium 135, potassium 4.6, chlorides 96, CO2 35, BUN 38, creatinine 0.66. Microbiologic studies are negative. Chest x-ray shows similar findings of patchy airspace disease. Progress note dated 01/19/2023. 67-year-old female seen again in room 256. She was hospitalized on January 04, for respiratory failure and COPD exacerbation, and was intubated on January 09. She was maintained on the ventilator all along, and has had multiple weaning trials, without success. In fact, she feels miserably, within a few minutes. Currently, she is on the volume assist control, rate 16, tidal volume 450, FiO2 40%, PEEP of 5. Blood gases show pO2 62, pCO2 58, and pH is 7.44. She's getting propofol at 50 mcg/kg/m, fentanyl 1 mcg/kg/h, and saline at 10 mL an hour. He is receiving tube feedings at goal, which is 25 mL an hour. White count 12.1, hemoglobin 11.1, normal hematocrit, and normal platelet count. Sodium 134, potassium 3.8, Chlorides 96, CO2 40. BUN is 35, with a creatinine of 0.54. Cultures are negative. No chest x-ray today. Progress note dated 01/20/2023. 67-year-old female seen again in room 256. The patient was initially hospitalized on January 04 for respiratory failure and COPD exacerbation, and was subsequently intubated for respiratory failure on January 09. She's been on the ventilator since. Every day this week, for the last 5, the patient has had multiple attempts at weaning, without success. She remains on the mechanical ventilator. She is on volume assist control, rate 16, tidal volume is 450 be reduced down to 375. FiO2 40%, PEEP of 5. Blood gases show pO2 of 69, pCO2 53, and a pH is 7.48. She is on propofol at 50 mcg/kg/m, fentanyl 1 mcg/kg/h, saline at 10 mL an hour, and tube feedings with vital HP, at 25 mL an hour which is goal. Chest x-ray shows improving right lower lobe infiltrate. Objective - Vital Signs Vital signs: Vital Signs Temp 97.7 F 01/20/23 08:00 Pulse 52 L 01/20/23 10:00 Resp 16 01/20/23 10:00 BP 109/55 01/20/23 10:00 Pulse Ox 90 L 01/20/23 10:00 FiO2 40 01/20/23 08:00 Intake & Output 01/19/23 01/20/23 01/20/23 18:59 06:59 18:59 Intake Total 975.565 520.293 683.252 Output Total 1005 400 485 Balance -29.435 120.293 198.252 Weight 92.8 kg 93 kg Intake: IV 179 143 65 ARTERIAL LINE. 39 33 15 Sodium Chloride 0.9% 1, 140 110 50 000 ml @ 20 mls/hr IV . Q24H [facility] Rx#:[id number] Intake, IV Titration 406.565 377.293 158.252 Amount Sodium Chloride 0.9% 80 167.64 77.293 44.587 ml @ 1 MCG/KG/HR 8.8 mls/ hr IV .[id number] [facility] with fentaNYL (PF) 1,000 mcg Rx#:[id number] propofoL 1,000 mg In 238.925 300 113.665 Empty Bag 1 bag @ 20 MCG/ KG/MIN 10.452 mls/hr IV . Q9H35M [facility] Rx#:[id number] Tube Feeding 300 340 Other 90 120 Output: Urine 1005 400 485 Other: Voiding Method Indwelling Catheter Indwelling Catheter Indwelling Catheter ABP, PAP, CO, CI - Last Documented Arterial Blood Pressure 103/58 - Exam No acute distress, currently sedated, with an orally placed endotracheal tube. HEENT examination is grossly unremarkable. Neck supple. Full range of motion. No adenopathy thyromegaly or neck vein distention. Cardiovascular examination reveals regular rhythm rate. S1-S2 normal. No S3 or S4. No discernible murmur noted. Heart rate is 56 bpm. Heart sounds are distant. Lungs reveal expiratory rhonchi and wheezes. Breath sounds equal. Saturations are 90 %. Breath sounds are essentially unchanged. Abdomen soft with bowel sounds, and without masses or tenderness. Extremities are intact. No cyanosis clubbing or edema. Skin is without rash or lesion. Neurologic examination cannot be adequately assessed at this time. - Labs CBC & Chem 7: 01/20/23 04:30 01/20/23 04:30 Labs: Abnormal Lab Results - Last 24 Hours (Table) 01/19/23 01/19/23 01/20/23 Range/Units 11:43 21:03 01:25 WBC (3.8-10.6) k/uL ABG pH (7.35-7.45) ABG pCO2 (35-45) mmHg ABG pO2 (83-108) mmHg ABG HCO3 (21-25) mmol/L ABG Total CO2 (19-24) mmol/L Sodium (137-145) mmol/L Chloride (98-107) mmol/L Carbon Dioxide (22-30) mmol/L BUN (7-17) mg/dL Glucose (74-99) mg/dL POC Glucose (mg/dL) 158 H 172 H 156 H (70-110) mg/dL Calcium (8.4-10.2) mg/dL 01/20/23 01/20/23 01/20/23 Range/Units 04:30 04:30 04:38 WBC 17.4 H (3.8-10.6) k/uL ABG pH (7.35-7.45) ABG pCO2 (35-45) mmHg ABG pO2 (83-108) mmHg ABG HCO3 (21-25) mmol/L ABG Total CO2 (19-24) mmol/L Sodium 135 L (137-145) mmol/L Chloride 94 L (98-107) mmol/L Carbon Dioxide 36 H (22-30) mmol/L BUN 38 H (7-17) mg/dL Glucose 157 H (74-99) mg/dL POC Glucose (mg/dL) 156 H (70-110) mg/dL Calcium 8.0 L (8.4-10.2) mg/dL 01/20/23 01/20/23 Range/Units 05:57 07:40 WBC (3.8-10.6) k/uL ABG pH 7.48 H (7.35-7.45) ABG pCO2 53 H (35-45) mmHg ABG pO2 69 L (83-108) mmHg ABG HCO3 40 H* (21-25) mmol/L ABG Total CO2 41 H (19-24) mmol/L Sodium (137-145) mmol/L Chloride (98-107) mmol/L Carbon Dioxide (22-30) mmol/L BUN (7-17) mg/dL Glucose (74-99) mg/dL POC Glucose (mg/dL) 149 H (70-110) mg/dL Calcium (8.4-10.2) mg/dL Assessment and Plan Assessment: Acute on chronic hypoxemic and hypercapnic respiratory failure, requiring intubation on 01/09/2023, with failure to wean from mechanical ventilation, despite numerous daily interruption of sedation, and spontaneous breathing trials. Failure to wean from mechanical ventilation. Possible underlying sepsis, with hypotension. Severe end-stage COPD. Chronic hypercapnic respiratory failure. History of left upper lobe nodule. Previous history of coronavirus associated pneumonia. Benign essential hypertension. History of rheumatoid arthritis. Chronic back pain. Prior history of tobacco use. Cushingoid habitus, secondary to chronic steroids. Gen. medical debility. Plan: Plan dated 01/15/2023. Labs, x-rays, and medications are reviewed. The patient may not be weaned and mobile at this point, given the large difference between the peak airway pressure, and a plateau pressure. We will attempt a daily interruption of sedation, and a spontaneous breathing trial. Family wants to hold off on the tracheostomy and PEG tube at this time, to see if the patient is possibly able to come off the ventilator. Prognosis remains very guarded. We will continue with GI and DVT prophylaxis. We continue with tube feeds. Arterial blood gases are reasonable. Plan dated 01/16/2023. The patient's doing about the same, she is chronically and critically ill, and his failed her spontaneous breathing trials, for the last 2 days. Labs, x-rays, medications are reviewed. She remains on fentanyl and propofol. She is getting tube feedings. The patient currently is a full code. Apparently her sister is questioning whether or not the patient should have a tracheostomy and PEG tube. We will attempt to talk to the sister. Patient's overall prognosis remains very poor. She is receiving tube feedings. She remains on GI and DVT prophylaxis. Plan dated 01/17/2023. Unfortunately, the patient again failed her spontaneous breathing trial. I spoke with the patient's sister yesterday, and she agreed to give her sister 1 additional attempt, at weaning. Again, she did very poorly. We will proceed with tracheostomy and PEG tube placement. Labs, x-rays, medications are reviewed. The patient remains on propofol, and fentanyl. She is receiving tube feedings. Blood gases are borderline. We will continue to follow the patient and make recommendations along the way. Prognosis is very guarded. Plan dated 01/18/2023. According to the sister, Candace, the person now making decisions for this patient is her brother. The patient is currently still on the mechanical ventilator. Previous attempts to weaning have been unsuccessful. Labs, x-rays, and medications are reviewed. We will continue to follow make recommendations were appropriate. The patient remains on propofol and fentanyl. Tube feedings on hold. Prognosis is guarded. Plan dated 01/19/2023. The patient's family can decide about whether or not to proceed with tracheostomy and PEG tube placement. We talked and then had nausea. Apparently her brother is now making medical decisions for the patient. Her sister, previously was. We will continue to follow the patient make recommendations along the way. Labs, x-rays, and medications are reviewed. Prognosis is guarded. Patient is receiving tube feedings. She still very significantly and quickly, on her spontaneous breathing trials. Plan dated 01/20/2023. Patient is about the same today as she was yesterday. The family decided whether or not to proceed with tracheostomy and PEG tube placement. The patient remains a full code. Labs, x-rays, medications are all reviewed. The patient remains on propofol at 50 mcg/kg/m, and fentanyl 1 mcg/kg/h. Each day this past week, Sunday through Sunday, we did a daily interruption of sedation, and a spontaneous breathing trial, and the patient failed miserably, within the first 2-3 minutes. We will continue to follow make recommendations along the way. Prognosis is guarded. Time with Patient: Greater than 30
[2023-01-20 11:55] LABS: Glucose,Whole Blood 153 mg/dL (70-110)
[2023-01-20] MEDS: CLEVIDIPINE BUTYRATE 25 MG in EMPTY BAG 1 BAG IV SCH (14:43)
[2023-01-20 16:01] LABS: Glucose,Whole Blood 146 mg/dL (70-110)
[2023-01-20] MEDS: SODIUM CHLORIDE 0.9% 1,000 ML IV SCH (17:30)
[2023-01-20 20:57] LABS: Glucose,Whole Blood 98 mg/dL (70-110)
[2023-01-20] MEDS: rOPINIRole HCL 4 MG TABLET PO SCH (21:10)
[2023-01-20] MEDS: MONTELUKAST 10 MG TAB PO SCH (21:10)
[2023-01-20 23:10] LABS: Glucose,Whole Blood 137 mg/dL (70-110)
[2023-01-21 00:21] LABS: Glucose,Whole Blood 143 mg/dL (70-110)
[2023-01-21] MEDS: INSULIN ASPART (NovoLOG) 100 UNIT/ML VIAL SQ SCH ×12 (00:30→23:06)
[2023-01-21] MEDS: TOBRA-DEXAMET 0.3-0.1% OPHTH DROPS 2.5 ML BTL RIGHT EYE SCH ×5 (00:31→17:02)
[2023-01-21] MEDS: methylPREDNISolone SOD SUCCI 125 MG/2 ML VIAL IV SCH ×4 (00:36→18:04)
[2023-01-21] MEDS: ALBUTEROL NEBULIZED 2.5 MG/3 ML INHALATION SCH ×6 (00:37→20:05)
[2023-01-21] MEDS: IPRATROPIUM 0.5 MG/2.5 ML NEBU INHALATION SCH ×6 (00:37→20:05)
--- NOTE | 2023-01-21 01:44 | P.PN ---
Subjective Progress Note Date: 01/20/23 This is a pleasant 67 years old female with past medical history of advanced COPD advanced COPD on home oxygen dependent on 3-4 L at all times, obstructive sleep apnea CPAP dependent nightly, diastolic CHF hypertension, iron deficiency anemia, rheumatoid arthritis, and chronic back pain who presented to the ER because of worsening shortness of breath for a few days duration Patient currently is lying in bed in the emergency room 6, with BiPAP machine on with parameters of 15/6, FiO2 of 40%. Patient is tachypneic breathing with direct about 34-37. Patient looks tired and she could not provide much information, she cannot talk but she is awake and oriented. She follows commands. She has minimal chest movement with expiratory wheezing. She denies any pain, no chest pain she denies any GI or urinary symptoms. She moves all extremities symmetrically. vitals reviewed and patient is afebrile. Mild Leukocytosis of 12.2, Mild Thrombocytopenia 127. Hemoglobin Normal. INR 0.9. VBG Showing High PCO2 of 84, Low pH of 7.3. BNP showing high carbon dioxide at 49, creatinine normal. Liver enzymes not elevated. Troponin negative. ProBNP is 301. Glucose 128. Chest x-ray reviewed by myself showing enlarged heart with COPD changes. Minimal chest congestion. Patient started on dexamethasone, albuterol. EKG showing normal sinus rhythm at [address]-T changes. 01/05/2023 Patient remains in the ICU, she required BiPAP all the ninth yesterday except for one hour she got some rest. Today patient showed significant improvement, she is more alert awake, pleasant. Her mentation is back to normal. Her breathing is also improving with decrease respiratory rate into 18-20, per to more than 30 yesterday. Repeat chest x-ray looks similar findings to yesterday with no obvious infiltrate or consolidation. The heart is mildly enlarged, just x-ray reviewed by myself. Other vitals and labs looks stable. pro-calcitonin is slightly elevated at 0.20 She is currently receiving IV Solu-Medrol 60 mg as well as broad-spectrum antibiotics with vancomycin and cefepime Until doxycycline. Also she is on IV Lasix daily. 01/06/2023 pt today is significantly improved , she can talk easily off the bipap machine in the moring although she was using all night, she requires few liter of oxgyen per min like 4 only Because of significant improvement and she was moved out of the ICU Her treatment was the risk related, antibiotics vancomycin and doxycycline were stopped and Cefepime. IV Lasix Switched to Oral Dose of 40 Mg Daily. While She Kept on High Dose of IV Solu-Medrol 60 Mg. 01/07/2023 Patient today having some more breathing difficulty compared to yesterday however she still looks greatly although she still have some wheezing. She is saturating 90s on 4 L oxygen via nasal cannula, no much of accessory muscles and she can talk more freely. Her chest x-ray today showing worse than admission when I reviewed it but most likely this is because of the technique. She remains on IV Solu-Medrol, 60 mg. Cefepime, oral Lasix 40 mg daily. Patient did not need BiPAP last night. Patient wants to keep the [place] cath in Place because it's harder for her to get up 01/08/2023 Patient seen and evaluated in follow-up today with pulmonary following closely. Patient is continued on 4 L via nasal cannula as well as BiPAP. Patient continues on oral steroids along with inhalers and cefepime. Patient was started on cefepime empirically for concerns of pneumonia. Patient continues to be extremely dyspneic with minimal exertion and would recommend weaning FiO2 as tolerated. Patient normally wears a CPAP and has one for the outpatient setting although would recommend continuing with BiPAP especially at night from 8 PM to 6 AM. Continue BiPAP as needed as well. Patient extremely weak and has been progressively getting more weak with each admission. Patient has been hospitalized very frequently most recently and clinically very slow to improve. Case management following as there will be plans to return to rehab or possible inpatient rehab. Will await PT/OT therapy evaluation. Patient is currently afebrile denies chest pain or palpitations. Patient reports she is tolerating diet with no reports of nausea or vomiting noted. 01/09/2023 Patient is seen and evaluated in follow up today and per nursing staff was found this morning with her oxygen and BIpap mask off and O2 saturations in the 60's. Patient was placed back on bipap and numbers improved slightly although continued to be restless, combative, and not following commands. Ordered ativan to calm and was not effective. Patient extremely dyspneic and tachypneic and working with accessory muscle use. Luckily, pulmonary was rounding on the unit and ordered transfer to ICU for possible intubation and close monitoring. Patient is afebrile and continued on cefepime empirically and sputum cultures ordered. continued on breathing treatments as well as oral prednisone. 01/10/2023 Patient is seen in follow up today and continues to be in the ICU in critical condition. Patient continues on mechanical ventilation with an FI02 of 50% and peep is 5. Patient was off pressor support and off propofol and not tolerating with no plans for weaning off the vent at this time. Peg and tracheostomy is being considered in the next few days possibly. Patient overall prognosis is extremely poor and guarded at this time. PICC line is being ordered and pending. Patient is also continued on empiric antibiotics and awaiting cultures. Patient also placed back on IV steroids per pulmonary. Patient is afebrile. 01/11/2023 Patient is seen and evaluated in follow-up today continues to be in the MICU with pulmonary ballroom dance instructor following closely. Patient remains on mechanical ventilation working on weaning FiO2 as tolerated. FiO2 is currently at 45% with a PEEP of 5 and undergoing sedation holidays with no plans of weaning at this time. Patient was continued on Cefepime although cultures are negative and blood cultures remain negative will discontinue cefepime. Patient is continued on tube feeds and blood sugar slightly elevated will continue sliding scale and add low-dose long-acting twice daily and continue to monitor Accu-Cheks before meals and at bedtime. Recommend follow-up chest x-ray and labs in the a.m. 01/12/2023 Patient is seen and evaluated continues to be the ICU with sister at the bedside. Patient remains on mechanical ventilation with no plans of weaning at this time. FiO2 being adjusted down to 40% with a PEEP of 5 and patient is tolerating well. Patient is off pressor support as well as antibiotics and being closely monitored. Patient's blood sugars elevated and have added long- acting and will increase in continue to monitor closely. Chest x-ray today shows persistent bilateral effusions right greater than left with patchy densities and atelectasis. Patient is undergoing sedation holidays to monitor mental status. Sister at the bedside and discussed with Juventino and address their questions and concerns to the? Ability. Patient remains afebrile. Patient is continued on tube feeding and tolerating. Overall prognosis remains extremely g uarded. 01/13/2023 Patient is evaluated today continues to be in the ICU and undergoing weaning tri als of sedation and had CPAP trial yesterday and did not tolerate well became increasingly agitated on maximum propofol requiring sentinel. Propofol being titrated down. Patient continues off pressor support. Patient is maintained of IV antibiotics and is continued on IV steroids along with breathing treatments. Patient being started on lactulose unknown last bowel movement. Recommend daily chest x-rays and follow-up labs. Recommend to replace electrolytes per protocol. Blood sugars remain elevated and tolerating tube feeds and will continue sliding scale and increased long-acting to 20 units twice daily. Recommend Accu-Cheks before meals and at bedtime. 01/14/2023 Patient is seen in follow-up continues to be in the ICU maintained on mechanical ventilation with an FiO2 of 40% and PEEP is 5. No plans for trials of weaning today other than mild sedation holiday to assess mentation. Per nursing staff patient is following commands off sedation although does get quite restless and hypertensive and symptomatic no plans for sedation holiday today. Patient is continued on propofol and fentanyl and will continue. Patient is monitored off IV antibiotics and cultures have remained negative. Patient's blood sugars elevated and will add increased insulin covered and continue with current regimen. Pulmonary has consulted general surgery for possible tracheostomy and PEG tube placement and awaiting family decision and consent. 01/15/2023 The patient was seen and evaluated continues to be in the ICU under critical condition. Patient remains on mechanical ventilation with an FiO2 of 40% and PEEP is 5. Working on weaning trials in terms of sedation to monitor mentation with no plans of weaning from mechanical plan at this time. There were plans for possible PEG and trach this morning although family would like a few more days to see if patient is able to wean off the vent. Per pulmonary will attempt CPAP trials and assess for weaning. Chest x-ray today shows some congestion with no significant difference from previous. Patient is continued on IV Lasix daily along with IV steroids, propofol and fentanyl currently off antibiotic and pressor support. Prognosis remains extremely critical and guarded at this time. 01/16/2023 Patient is seen and evaluated in follow-up today continues to be in the ICU with overall poor and guarded prognosis. Patient remains on mechanical vent with an FiO2 of 40% and PEEP is 5. Continuing with daily sedation holiday trials and trialing spontaneous breathing trials although patient is feeling miserable. Pulmonary ballroom dance instructor leaning towards PEG and trach placement will need to discuss further with family. Patient is afebrile continued on IV steroids and breathing treatments is receiving IV Lasix daily and being closely monitored with blood sugars. Blood sugars are improved we'll continue current regimen. Patient continued on tube feedings and tolerating. 01/17/2023 Patient is seen and evaluated in follow-up today continues to be on mechanical ventilation with multiple attempts at weaning and breathing trials and failing miserably with pulmonary ballroom dance instructor following recommending PEG and trach placement in general surgery is following and will likely proceed with tracheostomy placement. Tube feedings are being placed on hold with possible intervention tomorrow. Patient continued on IV steroids along with sedation and breathing treatments with no significant change from yesterday. Patient remains on mechanical ventilation with an FiO2 of 40% and PEEP is 5. Patient also continues on propofol and fentanyl and has been off pressor support. Blood sugars were controlled and will continue current regimen. Patient is afebrile and maintained off antibiotics at this time. Cultures have remained negative. 01/18/2023 Patient is seen in the ICU continue to be on mechanical ventilation with an FiO2 of 40% and PEEP is 5. Pulmonary ballroom dance instructor following along with general surgery and awaiting family decision about possible PEG and trach. Brother, Juventino, who is the decision maker would like to wait until next week and continuing with weaning trials to see if she can come off of the vent. Overall prognosis is poor and guarded and will continue for now. Chest x-ray shows pleural effusions with no significant change from previous and patient is maintained on IV Lasix daily. Patient also continues on breathing treatments along with IV steroids. Blood sugars better controlled and tube feedings have been on hold although would recommend resuming for now if awaiting for PEG placement until next week. Labs reviewed. Patient is afebrile. 01/19/2023 Patient is seen and evaluated in follow-up today continues in the ICU on mechanical ventilation. Family discussing possible PEG/trach sometime next week if patient is unable to continue to wean off the vent. Patient is maintained on sedation and is off pressor support. We'll follow-up chest x-ray and labs in the a.m. Overall prognosis continues to remain guarded at this time. 01/20/2023 Patient is seen and evaluated in follow-up today continues to be in the ICU under critical condition on mechanical ventilation and has failed multiple attempts at weaning with pulmonary ballroom dance instructor following closely recommending PEG and trach placement. Family would like to have the patient monitored closely over the next few days and discuss treatment plan moving forward early next week if patient is unable to successfully wean on her own and then may consider PEG and trach. General surgery is following and unable to complete a PEG and trach until if patient's family decides to move forward with this. Tube feedings have been resumed and tolerating and would recommend continuing to monitor Accu-Cheks closely and treat accordingly. Chest x-ray ordered and pending at this time and a.m. labs are pending as well. Review of systems: unable to obtain as patient is on mechanical vent and sedated All medications have been reviewed Active Medications Acetaminophen (Acetaminophen Tab 500 Mg Tab) 1,000 mg PO Q6HR PRN PRN Reason: Fever and/ or Pain Last Admin: 01/12/23 22:28 Dose: 1,000 mg Albuterol Sulfate (Albuterol Nebulized 2.5 Mg/3 Ml) 2.5 mg INHALATION RT-Q4H [facility] Last Admin: 01/20/23 04:30 Dose: 2.5 mg Artificial Tears (Artificial Tears-Hypromellose Drops 15 Ml Btl) 2 drops BOTH EYES QID PRN PRN Reason: Dry Eye(s) Budesonide (Budesonide 1 Mg/2 Ml Nebu) 1 mg INHALATION RT-BID [facility] Last Admin: 01/19/23 19:52 Dose: 1 mg Carvedilol (Carvedilol 12.5 Mg Tab) 12.5 mg PO BID-W/MEALS [facility] Last Admin: 01/20/23 06:53 Dose: 12.5 mg Chlorhexidine Gluconate (Chlorhexidine Gluconate 15 Ml Cup) 15 ml MUCOUS MEM BID [facility] Last Admin: 01/19/23 21:33 Dose: 15 ml Dextrose/Water (Dextrose 50% Syringe 50 Ml) 25 ml IVP PER PROTOCOL PRN; Protocol PRN Reason: Hypoglycemia Dextrose/Water (Dextrose 50% Syringe 50 Ml) 50 ml IVP PER PROTOCOL PRN; Protocol PRN Reason: Hypoglycemia Duloxetine HCl (Duloxetine Hcl 30 Mg Capsule.Dr) 30 mg PO DAILY@0600 [facility] Last Admin: 01/20/23 06:53 Dose: 30 mg Formoterol Fumarate (Formoterol Fumarate 20 Mcg/2 Ml Nebu) 20 mcg INHALATION RT-BID [facility] Last Admin: 01/19/23 19:52 Dose: 20 mcg Furosemide (Furosemide 10 Mg/Ml 2 Ml Vial) 20 mg IV DAILY [facility] Last Admin: 01/19/23 09:27 Dose: 20 mg Heparin Sodium (Porcine) (Heparin Sodium,Porcine/Pf 5,000 Unit/0.5 Ml Syringe) 5,000 unit SQ Q12HR [facility] Last Admin: 01/19/23 21:33 Dose: 5,000 unit Sodium Chloride (Saline 0.9%) 1,000 mls @ 20 mls/hr IV .Q24H [facility] Last Admin: 01/19/23 16:51 Dose: 20 mls/hr Propofol 1,000 mg/ IV Solution 100 mls @ 10.452 mls/hr IV .Q9H35M [facility]; Protocol Last Admin: 01/20/23 02:00 Dose: 50 mcg/kg/min, 26.13 mls/hr Norepinephrine Bitartrate 4 mg (/ Sodium Chloride) 254 mls @ 9.956 mls/hr IV .Q24H [facility]; Protocol Last Admin: 01/19/23 11:54 Dose: Not Given Fentanyl Citrate 1,000 mcg/ (Sodium Chloride) 100 mls @ 8.8 mls/hr IV .[id number] [facility] Last Admin: 01/20/23 03:32 Dose: 1 mcg/kg/hr, 8.8 mls/hr Clevidipine 25 mg/ IV Solution 50 mls @ 2 mls/hr IV .Q24H [facility]; Protocol Last Admin: 01/19/23 16:05 Dose: Not Given Insulin Aspart (Insulin Aspart (Novolog) 100 Unit/Ml Vial) 0 unit SQ Q4H [facility]; Protocol Last Admin: 01/20/23 04:41 Dose: Not Given Insulin Aspart (Insulin Aspart (Novolog) 100 Unit/Ml Vial) 5 unit SQ Q4H [facility] Last Admin: 01/20/23 04:41 Dose: Not Given Insulin Detemir (Insulin Detemir (Levemir) 100 Unit/Ml Syr) 20 unit SQ BID@0700,2100 [facility] Last Admin: 01/19/23 21:34 Dose: 20 unit Ipratropium [place] (Ipratropium 0.5 Mg/2.5 Ml Nebu) 0.5 mg INHALATION RT-Q4H [facility] Last Admin: 01/20/23 04:30 Dose: 0.5 mg Lactulose (Lactulose 20 Gm/30 Ml Cup) 20 gm PO BID [facility] Last Admin: 01/19/23 21:33 Dose: 20 gm Methylprednisolone Sodium Succinate (Methylprednisolone Sod Succi 125 Mg/2 Ml Vial) 60 mg IV Q6HR [facility] Last Admin: 01/20/23 06:53 Dose: 60 mg Miscellaneous Information (Potassium Replacement Protocol 1 Each Misc) 1 each MISCELLANE DAILY PRN; Protocol PRN Reason: Per Protocol Miscellaneous Information (Magnesium Replacement Protocol 1 Each Misc) 1 each MISCELLANE DAILY PRN; Protocol PRN Reason: Per Protocol Montelukast Sodium (Montelukast 10 Mg Tab) 10 mg PO [facility] Last Admin: 01/19/23 21:33 Dose: 10 mg Naloxone HCl (Naloxone 0.4 Mg/Ml 1 Ml Vial) 0.2 mg IV Q2M PRN PRN Reason: Opioid Reversal Duoneb ([id number] (/Ipratropium0.5mg)) 1 each INHALATION RT-QID [facility] Last Admin: 01/09/23 16:12 Dose: 1 each Pantoprazole Sodium (Pantoprazole 40 Mg/10 Ml Vial) 40 mg IVP BID [facility] Last Admin: 01/19/23 21:33 Dose: 40 mg Polyethylene Glycol (Polyethylene Glycol 3350 17 Gm Powd.Pack) 17 gm PO DAILY [facility] Last Admin: 01/19/23 09:27 Dose: 17 gm Ropinirole HCl (Ropinirole Hcl 4 Mg Tablet) 4 mg PO [facility] Last Admin: 01/19/23 21:41 Dose: 4 mg Theophylline (Theophylline 24 Hour 400 Mg Cap.Er.24h) 400 mg PO DAILY@0600 [facility] Last Admin: 01/20/23 06:53 Dose: 400 mg Tobramycin/Dexamethasone (Tobra-Dexamet 0.3-0.1% Ophth Drops 2.5 Ml Btl) 2 drops RIGHT EYE Q4HR [facility] Last Admin: 01/20/23 04:42 Dose: Not Given Verapamil HCl (Verapamil 40 Mg Tab) 40 mg PO TID [facility] Last Admin: 01/19/23 21:41 Dose: 40 mg Physical exam : GENERAL: The patient is on mechanical vent with an FI02 of 40% and peep is 5. Sedated. Well developed, well nourished. obese HEENT: Pupils are round and equally reacting to light. EOMI. No scleral icterus. No conjunctival pallor. Normocephalic, atraumatic. No pharyngeal erythema. No thyromegaly. CARDIOVASCULAR: S1 and S2 muffled PULMONARY: diminished breath sounds bilaterally with course rhonchi, faint crackles noted at the bases ABDOMEN: Soft, nontender, obese. nondistended, normoactive bowel sounds. No palpable organomegaly. MUSCULOSKELETAL: No joint swelling or deformity. EXTREMITIES: No cyanosis, clubbing, or pedal edema. NEUROLOGICAL: unable to assess, on sedation of propofol and fentanyl SKIN: No rashes. no petechiae. Assessment: Acute COPD exacerbation Acute on chronic hypoxic respiratory failure patient is normally at home on 3 L nasal cannula, now requriing mechanical ventilation on 01/09/2023 Acute respiratory acidosis Steroid-induced hyperglycemia Altered mental status possibly secondary to C02 narcosis sepsis, doubt septic shock, sepsis mostly due to hypovolemia and hypotension, requiring pressor support, now off pressor support Acute on chronic hypercapnic respiratory failure Chronic leukocytosis History of COVID-19 pneumonia Benign essential hypertension History of rheumatoid osteoarthritis Chronic back pain Former smoker Full code Plan: Recommend to continue with current medications and Patient continues on mechanical vent with an FI02 of 40% and peep of 5 and being closely monitored in the ICU. Continued on IV steroids and breathing inhalational treatments. Pulmonary following closely recommending tracheostomy and PEG tube placement and family would like to wait until next week to see if patient is able to be weaned off. General surgery following and would not be available to perform the PEG/trach until next week. Patient has had multiple attempts on spontaneous breathing trials and failing miserably. We'll continue to monitor closely recommend monitoring blood sugars before meals at bedtime and continuing with sliding scale and long-acting. Tube Feedings resumed and tolerating Currently undergoing sedation trials to monitor mental status Per nursing staff patient does follow commands off sedation Due to multiple complex medical issues, overall prognosis is extremely poor and guarded The impression and plan of care has been dictated by Teresa Portillo, Nurse Practitioner as directed. Dr. Durga MD I have performed a history and examination and MDM of this patient, discussed the same with the dictator, and agree with the dictator's assessment and plan as written ,documented as a scribe. Based on total visit time, I have performed more than 50% of the visit. Objective - Vital Signs Vital signs: Vital Signs Temp 96.2 F L 01/20/23 04:00 Pulse 52 L 01/20/23 06:00 Resp 16 01/20/23 06:00 BP 147/86 01/20/23 06:00 Pulse Ox 93 L 01/20/23 06:00 FiO2 40 01/20/23 04:12 Intake & Output 01/19/23 01/20/23 01/20/23 18:59 06:59 18:59 Intake Total 975.565 420.293 Output Total 1005 400 Balance -29.435 20.293 Weight 92.8 kg Intake: IV 179 143 ARTERIAL LINE. 39 33 Sodium Chloride 0.9% 1, 140 110 000 ml @ 20 mls/hr IV . Q24H [facility] Rx#:[id number] Intake, IV Titration 406.565 277.293 Amount Sodium Chloride 0.9% 80 167.64 77.293 ml @ 1 MCG/KG/HR 8.8 mls/ hr IV .[id number] [facility] with fentaNYL (PF) 1,000 mcg Rx#:[id number] propofoL 1,000 mg In 238.925 200 Empty Bag 1 bag @ 20 MCG/ KG/MIN 10.452 mls/hr IV . Q9H35M [facility] Rx#:[id number] Tube Feeding 300 Other 90 Output: Urine 1005 400 Other: Voiding Method Indwelling Catheter Indwelling Catheter ABP, PAP, CO, CI - Last Documented Arterial Blood Pressure 127/54 - Labs CBC & Chem 7: 01/20/23 04:30 01/20/23 04:30 Labs: Abnormal Lab Results - Last 24 Hours (Table) 01/19/23 01/19/23 01/19/23 Range/Units 08:14 11:43 21:03 WBC (3.8-10.6) k/uL ABG pH (7.35-7.45) ABG pCO2 (35-45) mmHg ABG pO2 (83-108) mmHg ABG HCO3 (21-25) mmol/L ABG Total CO2 (19-24) mmol/L Sodium (137-145) mmol/L Chloride (98-107) mmol/L Carbon Dioxide (22-30) mmol/L BUN (7-17) mg/dL Glucose (74-99) mg/dL POC Glucose (mg/dL) 198 H 158 H 172 H (70-110) mg/dL Calcium (8.4-10.2) mg/dL 01/20/23 01/20/23 01/20/23 Range/Units 01:25 04:30 04:30 WBC 17.4 H (3.8-10.6) k/uL ABG pH (7.35-7.45) ABG pCO2 (35-45) mmHg ABG pO2 (83-108) mmHg ABG HCO3 (21-25) mmol/L ABG Total CO2 (19-24) mmol/L Sodium 135 L (137-145) mmol/L Chloride 94 L (98-107) mmol/L Carbon Dioxide 36 H (22-30) mmol/L BUN 38 H (7-17) mg/dL Glucose 157 H (74-99) mg/dL POC Glucose (mg/dL) 156 H (70-110) mg/dL Calcium 8.0 L (8.4-10.2) mg/dL 01/20/23 01/20/23 Range/Units 04:38 05:57 WBC (3.8-10.6) k/uL ABG pH 7.48 H (7.35-7.45) ABG pCO2 53 H (35-45) mmHg ABG pO2 69 L (83-108) mmHg ABG HCO3 40 H* (21-25) mmol/L ABG Total CO2 41 H (19-24) mmol/L Sodium (137-145) mmol/L Chloride (98-107) mmol/L Carbon Dioxide (22-30) mmol/L BUN (7-17) mg/dL Glucose (74-99) mg/dL POC Glucose (mg/dL) 156 H (70-110) mg/dL Calcium (8.4-10.2) mg/dL
[2023-01-21] MEDS: SODIUM CHLORIDE 0.9% 80 ML with fentaNYL (PF) 1,000 MCG IV SCH ×4 (03:05→14:09)
[2023-01-21 03:46] LABS: Glucose,Whole Blood 147 mg/dL (70-110)
[2023-01-21 03:58] LABS: MCHC 31.6 g/dL (31.0-37.0); MCV 98.2 fL (80.0-100.0); Mean Platelet Volume 9.3; Platelet Count 187 k/uL (150-450); RBC 3.56 m/uL (3.80-5.40); RDW 15.2 % (11.5-15.5); WBC 17.9 k/uL (3.8-10.6)
[2023-01-21 04:07] LABS: African American GFR (CKD) >90 (>60 ml/min/1.73 sqM); Blood Urea Nitrogen 41 mg/dL (7-17); Calcium 7.9 mg/dL (8.4-10.2); Chloride 96 mmol/L (98-107); Glucose 148 mg/dL (74-99); Magnesium 2.4 mg/dL (1.6-2.3); Non-African American GFR(CKD) >90 (>60 ml/min/1.73 sqM); Potassium 4.9 mmol/L (3.5-5.1); Sodium 133 mmol/L (137-145)
[2023-01-21 04:13] LABS: Anion Gap 2 mmol/L; Carbon Dioxide 35 mmol/L (22-30)
[2023-01-21] MEDS: THEOPHYLLINE 24 HOUR 400 MG CAP.ER.24H PO SCH (05:29)
[2023-01-21] MEDS: DULoxetine HCL 30 MG CAPSULE.DR PO SCH (05:30)
[2023-01-21 06:03] LABS: ABG Base Excess 14.6 mmol/L; ABG PCO2 66 mmHg (35-45); ABG PH 7.39 (7.35-7.45); ABG PO2 68 mmHg (83-108); ABG TCO2 42 mmol/L (19-24); Allen Test Performed? Yes
[2023-01-21 06:14] LABS: ABG HCO3 40 mmol/L (21-25)
[2023-01-21] MEDS: INSULIN DETEMIR (LEVEMIR) 100 UNIT/ML SYR SQ SCH ×2 (06:19→20:14)
[2023-01-21] MEDS: carvediloL 12.5 MG TAB PO SCH ×2 (06:19→18:04)
[2023-01-21 06:22] LABS: Glucose,Whole Blood 144 mg/dL (70-110)
--- NOTE | 2023-01-21 07:34 | XR ---
EXAMINATION TYPE: XR chest 1V portable DATE OF EXAM: 01/21/2023 COMPARISON: 01/20/2023 INDICATION: Short of breath TECHNIQUE: Single frontal view of the chest is obtained. FINDINGS: The heart size is normal. The pulmonary vasculature is normal. Right lower lobe infiltrate is present. Endotracheal tube tip is above the rod. Nasogastric tube t ransverse the thorax. Left-sided PICC line has its tip in the right atrium. IMPRESSION: 1. Right lower lobe infiltrate. Correlate for worsening pneumonia. 2. Lines and catheters discussed above
[2023-01-21] MEDS: BUDESONIDE 1 MG/2 ML NEBU INHALATION SCH ×2 (08:08→20:05)
[2023-01-21] MEDS: FORMOTEROL FUMARATE 20 MCG/2 ML NEBU INHALATION SCH ×2 (08:08→20:05)
[2023-01-21 08:48] LABS: Glucose,Whole Blood 161 mg/dL (70-110)
[2023-01-21] MEDS: FUROSEMIDE 10 MG/ML 2 ML VIAL IV SCH (08:51)
[2023-01-21] MEDS: LACTULOSE 20 GM/30 ML CUP PO SCH ×2 (08:51→20:14)
[2023-01-21] MEDS: CHLORHEXIDINE GLUCONATE 15 ML CUP MUCOUS MEM SCH ×2 (08:51→20:14)
[2023-01-21] MEDS: PANTOPRAZOLE 40 MG/10 ML VIAL IVP SCH ×2 (08:52→20:14)
[2023-01-21] MEDS: VERAPAMIL 40 MG TAB PO SCH ×3 (08:53→22:00)
[2023-01-21] MEDS: polyethylene glycoL 3350 17 GM POWD.PACK PO SCH (08:53)
[2023-01-21] MEDS: HEPARIN SODIUM,PORCINE/PF 5,000 UNIT/0.5 ML SYRINGE SQ SCH ×2 (08:53→20:13)
--- NOTE | 2023-01-21 10:01 | P.PN ---
Subjective Progress Note Date: 01/21/23 Principal diagnosis: Respiratory failure Patient remains on the ventilator. No changes there. Apparently the patient's brother is coming into the hospital today and make decisions regarding CODE STATUS. Objective - Vital Signs Vital signs: Vital Signs Temp 96.5 F L 01/21/23 08:00 Pulse 49 L 01/21/23 09:00 Resp 16 01/21/23 09:00 BP 121/53 01/21/23 09:00 Pulse Ox 94 L 01/21/23 09:00 FiO2 40 01/21/23 09:00 Intake & Output 01/20/23 01/21/23 01/21/23 18:59 06:59 18:59 Intake Total 1036.082 898.848 316.701 Output Total 900 522 165 Balance 136.082 376.848 151.701 Weight 95.6 kg Intake: IV 169 143 39 ARTERIAL LINE. 39 33 9 Sodium Chloride 0.9% 1, 130 110 30 000 ml @ 20 mls/hr IV . Q24H [facility] Rx#:[id number] Intake, IV Titration 407.082 365.848 82.701 Amount Sodium Chloride 0.9% 80 99.000 100 ml @ 1 MCG/KG/HR 8.8 mls/ hr IV .[id number] [facility] with fentaNYL (PF) 1,000 mcg Rx#:[id number] propofoL 1,000 mg In 308.082 265.848 82.701 Empty Bag 1 bag @ 20 MCG/ KG/MIN 10.452 mls/hr IV . Q9H35M [facility] Rx#:[id number] Tube Feeding 340 300 75 Other 120 90 120 Output: Urine 900 520 165 Stool 2 Other: Voiding Method Indwelling Catheter Indwelling Catheter Indwelling Catheter ABP, PAP, CO, CI - Last Documented Arterial Blood Pressure 125/46 - Exam Abdomen: Soft, nontender, nondistended - Labs CBC & Chem 7: 01/21/23 03:46 01/21/23 03:46 Labs: Abnormal Lab Results - Last 24 Hours (Table) 01/20/23 01/20/23 01/20/23 Range/Units 11:53 15:59 23:09 WBC (3.8-10.6) k/uL RBC (3.80-5.40) m/uL Hgb (11.4-16.0) gm/dL ABG pCO2 (35-45) mmHg ABG pO2 (83-108) mmHg ABG HCO3 (21-25) mmol/L ABG Total CO2 (19-24) mmol/L ABG O2 Saturation (94-97) % Sodium (137-145) mmol/L Chloride (98-107) mmol/L Carbon Dioxide (22-30) mmol/L BUN (7-17) mg/dL Creatinine (0.52-1.04) mg/dL Glucose (74-99) mg/dL POC Glucose (mg/dL) 153 H 146 H 137 H (70-110) mg/dL Calcium (8.4-10.2) mg/dL Magnesium (1.6-2.3) mg/dL 01/21/23 01/21/23 01/21/23 Range/Units 00:19 03:42 03:46 WBC (3.8-10.6) k/uL RBC (3.80-5.40) m/uL Hgb (11.4-16.0) gm/dL ABG pCO2 (35-45) mmHg ABG pO2 (83-108) mmHg ABG HCO3 (21-25) mmol/L ABG Total CO2 (19-24) mmol/L ABG O2 Saturation (94-97) % Sodium 133 L (137-145) mmol/L Chloride 96 L (98-107) mmol/L Carbon Dioxide 35 H (22-30) mmol/L BUN 41 H (7-17) mg/dL Creatinine 0.49 L (0.52-1.04) mg/dL Glucose 148 H (74-99) mg/dL POC Glucose (mg/dL) 143 H 147 H (70-110) mg/dL Calcium 7.9 L (8.4-10.2) mg/dL Magnesium 2.4 H (1.6-2.3) mg/dL 01/21/23 01/21/23 01/21/23 Range/Units 03:46 06:09 06:21 WBC 17.9 H (3.8-10.6) k/uL RBC 3.56 L (3.80-5.40) m/uL Hgb 11.0 L (11.4-16.0) gm/dL ABG pCO2 66 H (35-45) mmHg ABG pO2 68 L (83-108) mmHg ABG HCO3 40 H* (21-25) mmol/L ABG Total CO2 42 H (19-24) mmol/L ABG O2 Saturation 93.0 L (94-97) % Sodium (137-145) mmol/L Chloride (98-107) mmol/L Carbon Dioxide (22-30) mmol/L BUN (7-17) mg/dL Creatinine (0.52-1.04) mg/dL Glucose (74-99) mg/dL POC Glucose (mg/dL) 144 H (70-110) mg/dL Calcium (8.4-10.2) mg/dL Magnesium (1.6-2.3) mg/dL 01/21/23 Range/Units 08:46 WBC (3.8-10.6) k/uL RBC (3.80-5.40) m/uL Hgb (11.4-16.0) gm/dL ABG pCO2 (35-45) mmHg ABG pO2 (83-108) mmHg ABG HCO3 (21-25) mmol/L ABG Total CO2 (19-24) mmol/L ABG O2 Saturation (94-97) % Sodium (137-145) mmol/L Chloride (98-107) mmol/L Carbon Dioxide (22-30) mmol/L BUN (7-17) mg/dL Creatinine (0.52-1.04) mg/dL Glucose (74-99) mg/dL POC Glucose (mg/dL) 161 H (70-110) mg/dL Calcium (8.4-10.2) mg/dL Magnesium (1.6-2.3) mg/dL Assessment and Plan (1) Acute respiratory failure with hypercapnia Narrative/Plan: Continue supportive care. We'll follow for possible tracheostomy and PEG tube placement. Await family decisions. Current Visit: Yes Status: Acute Code(s): J96.02 - ACUTE RESPIRATORY FAILURE WITH HYPERCAPNIA SNOMED Code(s): 621522801
--- NOTE | 2023-01-21 11:08 | P.PN ---
Subjective Progress Note Date: 01/21/23 Principal diagnosis: Respiratory failure. Reevaluated today on 01/11/2023, patient remains intubated and mechanically ventilated. She is on assist control rate of 16 tidal volume 450 FiO2 50% and PEEP of 5 ABG showed a pO2 of 95 pCO2 56 pH of 7.41, I cut down her FiO2 to 45%. Patient remains on propofol at 35 mcg/kg/m she is also on vitamin HP/enteral feeding at 30 mL per hour, and she is on IV fluid to KVO. Patient remains sedated, he is hemodynamically stable, not requiring any pressors. Remains on GI and DVT prophylaxis, antibiotics have been discontinued since all the cultures have been negative including blood cultures and sputum cultures so far. Patient was on cefepime which I will discontinue. Chest x-ray showed tiny right-sided pleural effusion and left pleural effusion with bibasilar atelectasis, no clear-cut evidence of pneumonia CBC is normal and basic metabolic is unremarkable Reevaluated today on 01/12/2023, patient remains in the ICU, intubated and mechanically ventilated. Patient is on assist control rate of 16 tidal volume 450 FiO2 45% and PEEP of 5 ABG showed a pO2 of 78 pCO2 of 50 pH of 7.47, FiO2 was cut down to 40%. Remains on propofol at 20 mcg/kg/m, not requiring any pressors, she is on vital HP/for enteral nutritional support. It is at 35 mL per hour. Patient is maintaining good urine output, she is on IV fluid at 75 mL per hour. Today the patient was given a short trial of pressure support of 12 and CPAP, did not do well, and she was moving very small tidal volumes and noted to be tachypneic on physical examination she did have scattered rhonchi and wheezes. Patient is obviously not ready for any weaning trials or extubation at this point. Chest x-ray continues to show small bilateral effusions with a right basilar atelectasis. Blood cultures have been negative and sputum cultures have been negative showing mostly normal respiratory patricia, has antibiotics have been discontinued. Patient remains mostly on bronchodilators, is also on GI and DVT prophylaxis Reevaluated today on 01/13/2023, patient remains in the ICU, intubated and mechanically ventilated. She is on assist control rate of 16 tidal volume 450 FiO2 40% and PEEP of 5 ABG showed a pO2 of 70 pCO2 52 pH of 7.47 hence no change was made in her ventilator settings. Patient remains on propofol at 20 mcg/kg/m IV fluid at KVO vital HP at 25 mL per hour not requiring any pressors. However the patient became extremely agitated yesterday in spite of maximal dose of propofol hence I started the patient on fentanyl at 0.5 mcg/kg per hour. And sh e remains on fentanyl propofol was cut down to 40 mics per kilo per minute. Chest x-ray is basically the same showing some bibasilar atelectasis especially at the right base. And small pleural effusions. WBC count is 7.1 hemoglobin 11.2 electrolytes are normal bicarb is 39, renal profile is normal blood sugar is 247 Reevaluated today on 01/14/2023, patient remains in the ICU, intubated and mech anically ventilated. She is on assist control rate of 16 tidal volume 450 FiO2 40% PEEP of 5 ABG showed a pO2 of 69 pCO2 58 pH of 7.43. Patient is still on propofol at 45 mcg/kg/m she is also on fentanyl 0.5 mics per kilo per hour receiving vital HP at 25 mL per hour. On lower doses of sedation, the patient seems to be appropriate according to the nurses, and follows simple instructions. However the patient continues to have significant abnormal lung findings with diffuse rhonchi and wheezes bilaterally, I feel the patient is not given be able to wean easily considering his severe underlying COPD, hence [facility] consulting Dr. Burgess for possible tracheostomy and PEG tube placement in the next 24-48 hours. In the meantime I will continue present supportive care measures. And continue present treatment plan. WBC count is 8.8 hemoglobin is 11.1. Basic metabolic profile is normal renal profile is normal, chest x-ray continues to show small bilateral pleural effusions and right lower lobe atelectasis, again strongly doubt pneumonia. Progress note dated 01/15/2023. 67-year-old female well-known to our service. She has a history of severe/end- stage oxygen-dependent COPD. She was admitted to the hospital on January 04 with respiratory failure and COPD exacerbation. She was intubated and mechanically ventilated on January 09. The patient currently is on volume assist control, rate 16, tidal volume 450, FiO2 40%, and PEEP of 5. Blood gases show pO2 78, pCO2 56, and a pH is 7.45. At 50 mcg/kg/m, and fentanyl at 1 mcg/kg/h. The patient's also getting saline at 10 mL an hour, and vital high protein at 25 mL an hour, which is goal. The patient will have a daily interruption of sedation today, on a pressure support of a CPAP of 5. The patient's peak airway pressures 43, and plateau pressure is 27. Such a large difference between the peak and plateau, the patient is likely not to be extubated today. White count 10.9, hemoglobin 11.2, hematocrit 34.1, with a normal platelet count. Sodium 137, potassium 4.5, chlorides 99, CO2 37, BUN 40, creatinine 0.65. Chest x-ray shows some cardiomegaly, and mild interstitial changes, possibly related to interstitial edema. Progress note dated 01/16/2023. 67-year-old female well-known to our service. She has a history of severe end- stage COPD. She was admitted to the hospital on January 04. At that time she had respiratory failure with COPD exacerbation. She required intubation on January 09. For the last 2 days we attempted a daily interruption of sedation, and spontaneous breathing trial. Unfortunately, she failed miserably, within minutes. Hence, it is likely that we will proceed with tracheostomy and PEG tub e placement. The patient is on volume assist control, rate 16, tidal volume 450, FiO2 40%, and PEEP of 5. PO2 71, pCO2 of 54, and pH is 7.47. The patient's currently on fentanyl, 1 mcg/kg/h, propofol 50 mcg/kg/m, and saline at KVO. The patient is getting vital high protein at goal, which is 25 mL an hour. Yesterday, she failed her SBT, after 2 minutes. White count 16.5, hemoglobin 11.1, hematocrit 34.5, and platelet count 206,000. Sodium 138, potassium 4.3, chlorides 98, CO2 35, BUN 42, creatinine 0.73. Microbiologic sampling is negative. Chest x-ray shows patchy and/or atelectasis. Progress note dated 01/17/2023. 67-year-old female with history of severe COPD. Her COPD is end stage. She was admitted to the hospital on January 04, for respiratory failure and COPD exacerbation. She got worse, and was intubated on January 09. She's been ventilated since. For the last 3 days, we did a daily interruption of sedation with a spontaneous breathing trial, and she did very poorly on all 3 attempts. Therefore, I think she is a candidate for tracheostomy and PEG tube placement. I did have a conversation with her sister yesterday, and her sister wanted to give her 1 additional attempt, today. She failed her trial today. The patient is on the volume assist control, rate 16, tidal volume 450, FiO2 40%, and PEEP of 5. Arterial blood gases show a PaO2 of 61, pCO2 of 56, and pH is 7.45. The patient is receiving saline at 10 mL an hour, propofol at 50 mcg/kg/m, fentanyl at 1 mcg/kg/h, and vital high protein at 25 mL an hour, which is goal. The patient will receive Lasix 40 mg IV push once, prior to her weaning trial. White count 13.7, within normal hemoglobin, hematocrit, and platelet count. Sodium 136, potassium 4.3, chlorides 97, CO2 35, BUN 41, and creatinine 0.66. Microbiology sampling has been negative. Chest x-ray shows a small right-sided pleural effusion, and some basilar atelectasis or infiltrate at the right base. Progress note dated 01/18/2023. 67-year-old female with a history of severe COPD. The patient was admitted to the hospital on January 04 for respiratory failure and COPD exacerbation. For worsening respiratory failure, she was intubated on January 09. She's been ventilated since. She's had multiple attempts at weaning, and has done poorly with each attempt. I did speak to the sister, who now because me that it's her brother that is making medical decisions for this patient. We're hoping to proceed to tracheostomy and PEG tube placement. Currently, she is on volume assist control, rate of 16, tidal volume 450, FiO2 50%, and PEEP of 5. Blood gases show pO2 70, pCO2 61, and a pH of 7.44. Saline is running at 20 mL an hour, propofol is a 35 mcg/kg/m, and fentanyl is at 1 mcg/kg/h. Tube feedings on hold. We will attempt another a daily interruption of sedation and spontaneous breathing trial today. White count 12.4, hemoglobin 11.4, hematocrit 34.2, and platelet count normal. Sodium 135, potassium 4.6, chlorides 96, CO2 35, BUN 38, creatinine 0.66. Microbiologic studies are negative. Chest x-ray shows similar findings of patchy airspace disease. Progress note dated 01/19/2023. 67-year-old female seen again in room 256. She was hospitalized on January 04, for respiratory failure and COPD exacerbation, and was intubated on January 09. She was maintained on the ventilator all along, and has had multiple weaning trials, without success. In fact, she feels miserably, within a few minutes. Currently, she is on the volume assist control, rate 16, tidal volume 450, FiO2 40%, PEEP of 5. Blood gases show pO2 62, pCO2 58, and pH is 7.44. She's getting propofol at 50 mcg/kg/m, fentanyl 1 mcg/kg/h, and saline at 10 mL an hour. He is receiving tube feedings at goal, which is 25 mL an hour. White count 12.1, hemoglobin 11.1, normal hematocrit, and normal platelet count. Sodium 134, potassium 3.8, Chlorides 96, CO2 40. BUN is 35, with a creatinine of 0.54. Cultures are negative. No chest x-ray today. Progress note dated 01/20/2023. 67-year-old female seen again in room 256. The patient was initially hospitalized on January 04 for respiratory failure and COPD exacerbation, and was subsequently intubated for respiratory failure on January 09. She's been on the ventilator since. Every day this week, for the last 5, the patient has had multiple attempts at weaning, without success. She remains on the mechanical ventilator. She is on volume assist control, rate 16, tidal volume is 450 be reduced down to 375. FiO2 40%, PEEP of 5. Blood gases show pO2 of 69, pCO2 53, and a pH is 7.48. She is on propofol at 50 mcg/kg/m, fentanyl 1 mcg/kg/h, saline at 10 mL an hour, and tube feedings with vital HP, at 25 mL an hour which is goal. Chest x-ray shows improving right lower lobe infiltrate. Progress note dated 01/21/2023. 67-year-old female again seen in room 256. She was hospitalized on January 04 for respiratory failure and COPD exacerbation, and was intubated for solomon respiratory failure on January 09. She's been on the ventilator since. All this week, we've been giving her daily interruption of sedation with spontaneous breathing trials. Unfortunately for her, she still each of these trials, quickly, and miserably. The patient remains on the mechanical ventilator, volume assist control, tidal volume 375, FiO2 40%, and PEEP of 5. Blood gases show pO2 of 68, pCO2 of 66, and a pH is 7.39. She remains on fentanyl 1 mcg/kg/h, propofol at 50 mcg/kg/m, saline at 10 mL an hour, and vital high protein at 25 mL an hour, which is goal. We will attempt another spontaneous breathing trial today. Current labs include a white count 17.9, hemoglobin 11, hematocrit 35, with a normal platelet count. Sodium 133, potassium 4.9, chlorides 96, CO2 35, anion gap 2, BUN 41, and creatinine 0.49. Chest x-ray shows some atelectasis or infiltrate in the right lower lobe. Objective - Vital Signs Vital signs: Vital Signs Temp 96.5 F L 01/21/23 08:00 Pulse 48 L 01/21/23 10:00 Resp 16 01/21/23 10:00 BP 115/57 01/21/23 10:00 Pulse Ox 94 L 01/21/23 10:00 FiO2 80 01/21/23 10:00 Intake & Output 01/20/23 01/21/23 01/21/23 18:59 06:59 18:59 Intake Total 1036.082 898.848 341.024 Output Total 900 522 480 Balance 136.082 376.848 -138.976 Weight 95.6 kg Intake: IV 169 143 52 ARTERIAL LINE. 39 33 12 Sodium Chloride 0.9% 1, 130 110 40 000 ml @ 20 mls/hr IV . Q24H [facility] Rx#:[id number] Intake, IV Titration 407.082 365.848 94.024 Amount Sodium Chloride 0.9% 80 99.000 100 ml @ 1 MCG/KG/HR 8.8 mls/ hr IV .H79H30M [facility] with fentaNYL (PF) 1,000 mcg Rx#:[id number] propofoL 1,000 mg In 308.082 265.848 94.024 Empty Bag 1 bag @ 20 MCG/ KG/MIN 10.452 mls/hr IV . Q9H35M [facility] Rx#:[id number] Tube Feeding 340 300 75 Other 120 90 120 Output: Urine 900 520 480 Stool 2 Other: Voiding Method Indwelling Catheter Indwelling Catheter Indwelling Catheter ABP, PAP, CO, CI - Last Documented Arterial Blood Pressure 119/44 - Exam No acute distress, currently sedated, with an orally placed endotracheal tube. HEENT examination is grossly unremarkable. Neck supple. Full range of motion. No adenopathy thyromegaly or neck vein distention. Cardiovascular examination reveals regular rhythm rate. S1-S2 normal. No S3 or S4. No discernible murmur noted. Heart rate is 63 bpm. Heart sounds are distant. Lungs reveal expiratory rhonchi and wheezes. Breath sounds equal. Saturations are 90 %. Breath sounds are essentially unchanged. Abdomen soft with bowel sounds, and without masses or tenderness. Extremities are intact. No cyanosis clubbing or edema. Skin is without rash or lesion. Neurologic examination cannot be adequately assessed at this time. - Labs CBC & Chem 7: 01/21/23 03:46 01/21/23 03:46 Labs: Abnormal Lab Results - Last 24 Hours (Table) 01/20/23 01/20/23 01/20/23 Range/Units 11:53 15:59 23:09 WBC (3.8-10.6) k/uL RBC (3.80-5.40) m/uL Hgb (11.4-16.0) gm/dL ABG pCO2 (35-45) mmHg ABG pO2 (83-108) mmHg ABG HCO3 (21-25) mmol/L ABG Total CO2 (19-24) mmol/L ABG O2 Saturation (94-97) % Sodium (137-145) mmol/L Chloride (98-107) mmol/L Carbon Dioxide (22-30) mmol/L BUN (7-17) mg/dL Creatinine (0.52-1.04) mg/dL Glucose (74-99) mg/dL POC Glucose (mg/dL) 153 H 146 H 137 H (70-110) mg/dL Calcium (8.4-10.2) mg/dL Magnesium (1.6-2.3) mg/dL 01/21/23 01/21/23 01/21/23 Range/Units 00:19 03:42 03:46 WBC (3.8-10.6) k/uL RBC (3.80-5.40) m/uL Hgb (11.4-16.0) gm/dL ABG pCO2 (35-45) mmHg ABG pO2 (83-108) mmHg ABG HCO3 (21-25) mmol/L ABG Total CO2 (19-24) mmol/L ABG O2 Saturation (94-97) % Sodium 133 L (137-145) mmol/L Chloride 96 L (98-107) mmol/L Carbon Dioxide 35 H (22-30) mmol/L BUN 41 H (7-17) mg/dL Creatinine 0.49 L (0.52-1.04) mg/dL Glucose 148 H (74-99) mg/dL POC Glucose (mg/dL) 143 H 147 H (70-110) mg/dL Calcium 7.9 L (8.4-10.2) mg/dL Magnesium 2.4 H (1.6-2.3) mg/dL 01/21/23 01/21/23 01/21/23 Range/Units 03:46 06:09 06:21 WBC 17.9 H (3.8-10.6) k/uL RBC 3.56 L (3.80-5.40) m/uL Hgb 11.0 L (11.4-16.0) gm/dL ABG pCO2 66 H (35-45) mmHg ABG pO2 68 L (83-108) mmHg ABG HCO3 40 H* (21-25) mmol/L ABG Total CO2 42 H (19-24) mmol/L ABG O2 Saturation 93.0 L (94-97) % Sodium (137-145) mmol/L Chloride (98-107) mmol/L Carbon Dioxide (22-30) mmol/L BUN (7-17) mg/dL Creatinine (0.52-1.04) mg/dL Glucose (74-99) mg/dL POC Glucose (mg/dL) 144 H (70-110) mg/dL Calcium (8.4-10.2) mg/dL Magnesium (1.6-2.3) mg/dL 01/21/23 Range/Units 08:46 WBC (3.8-10.6) k/uL RBC (3.80-5.40) m/uL Hgb (11.4-16.0) gm/dL ABG pCO2 (35-45) mmHg ABG pO2 (83-108) mmHg ABG HCO3 (21-25) mmol/L ABG Total CO2 (19-24) mmol/L ABG O2 Saturation (94-97) % Sodium (137-145) mmol/L Chloride (98-107) mmol/L Carbon Dioxide (22-30) mmol/L BUN (7-17) mg/dL Creatinine (0.52-1.04) mg/dL Glucose (74-99) mg/dL POC Glucose (mg/dL) 161 H (70-110) mg/dL Calcium (8.4-10.2) mg/dL Magnesium (1.6-2.3) mg/dL Assessment and Plan Assessment: Acute on chronic hypoxemic and hypercapnic respiratory failure, requiring intub ation on 01/09/2023, with failure to wean from mechanical ventilation, despite numerous daily interruption of sedation, and spontaneous breathing trials. Failure to wean from mechanical ventilation. Possible underlying sepsis, with hypotension. Severe end-stage COPD. Chronic hypercapnic respiratory failure. History of left upper lobe nodule. Previous history of coronavirus associated pneumonia. Benign essential hypertension. History of rheumatoid arthritis. Chronic back pain. Prior history of tobacco use. Cushingoid habitus, secondary to chronic steroids. Gen. medical debility. Plan: Plan dated 01/15/2023. Labs, x-rays, and medications are reviewed. The patient may not be weaned and mobile at this point, given the large difference between the peak airway pressur e, and a plateau pressure. We will attempt a daily interruption of sedation, and a spontaneous breathing trial. Family wants to hold off on the tracheostomy and PEG tube at this time, to see if the patient is possibly able to come off the ventilator. Prognosis remains very guarded. We will continue with GI and DVT prophylaxis. We continue with tube feeds. Arterial blood gases are reasonable. Plan dated 01/16/2023. The patient's doing about the same, she is chronically and critically ill, and his failed her spontaneous breathing trials, for the last 2 days. Labs, x-rays, medications are reviewed. She remains on fentanyl and propofol. She is getting tube feedings. The patient currently is a full code. Apparently her sister is questioning whether or not the patient should have a tracheostomy and PEG tube. We will attempt to talk to the sister. Patient's overall prognosis remains very poor. She is receiving tube feedings. She remains on GI and DVT prophylaxis. Plan dated 01/17/2023. Unfortunately, the patient again failed her spontaneous breathing trial. I spoke with the patient's sister yesterday, and she agreed to give her sister 1 additional attempt, at weaning. Again, she did very poorly. We will proceed with tracheostomy and PEG tube placement. Labs, x-rays, medications are reviewed. The patient remains on propofol, and fentanyl. She is receiving tube feedings. Blood gases are borderline. We will continue to follow the patient and make recommendations along the way. Prognosis is very guarded. Plan dated 01/18/2023. According to the sister, Candace, the person now making decisions for this patient is her brother. The patient is currently still on the mechanical ventilator. Previous attempts to weaning have been unsuccessful. Labs, x-rays, and medications are reviewed. We will continue to follow make recommendations were appropriate. The patient remains on propofol and fentanyl. Tube feedings on hold. Prognosis is guarded. Plan dated 01/19/2023. The patient's family can decide about whether or not to proceed with tracheostomy and PEG tube placement. We talked and then had nausea. Apparently her brother is now making medical decisions for the patient. Her sister, previously was. We will continue to follow the patient make recommendations along the way. Labs, x-rays, and medications are reviewed. Prognosis is guarded. Patient is receiving tube feedings. She still very significantly and quickly, on her spontaneous breathing trials. Plan dated 01/20/2023. Patient is about the same today as she was yesterday. The family decided whether or not to proceed with tracheostomy and PEG tube placement. The patient remains a full code. Labs, x-rays, medications are all reviewed. The patient remains on propofol at 50 mcg/kg/m, and fentanyl 1 mcg/kg/h. Each day this past week, Sunday through Sunday, we did a daily interruption of sedation, and a spontaneous breathing trial, and the patient failed miserably, within the first 2-3 minutes. We will continue to follow make recommendations along the way. Prognosis is guarded. Plan dated 01/21/2023. The patient remains on the mechanical ventilator. We will attempt another spontaneous breathing trial today. She is failed all previous attempts, within a couple minutes. The patient remains on both fentanyl and propofol. She is receiving tube feedings at goal. Labs, x-rays, and medications are reviewed. We will continue to make recommendations along the way. The patient's overall prognosis remains very guarded. Time with Patient: Greater than 30
[2023-01-21] MEDS: NOREPINEPHRINE 4 MG in SODIUM CHLORIDE 0.9% 250 ML IV SCH (11:09)
--- NOTE | 2023-01-21 11:13 | P.PN ---
Subjective Progress Note Date: 01/21/23 This is a pleasant 67 years old female with past medical history of advanced COPD advanced COPD on home oxygen dependent on 3-4 L at all times, obstructive sleep apnea CPAP dependent nightly, diastolic CHF hypertension, iron deficiency anemia, rheumatoid arthritis, and chronic back pain who presented to the ER because of worsening shortness of breath for a few days duration Patient currently is lying in bed in the emergency room 6, with BiPAP machine on with parameters of 15/6, FiO2 of 40%. Patient is tachypneic breathing with direct about 34-37. Patient looks tired and she could not provide much information, she cannot talk but she is awake and oriented. She follows commands. She has minimal chest movement with expiratory wheezing. She denies any pain, no chest pain she denies any GI or urinary symptoms. She moves all extremities symmetrically. vitals reviewed and patient is afebrile. Mild Leukocytosis of 12.2, Mild Thrombocytopenia 127. Hemoglobin Normal. INR 0.9. VBG Showing High PCO2 of 84, Low pH of 7.3. BNP showing high carbon dioxide at 49, creatinine normal. Liver enzymes not elevated. Troponin negative. ProBNP is 301. Glucose 128. Chest x-ray reviewed by myself showing enlarged heart with COPD changes. Minimal chest congestion. Patient started on dexamethasone, albuterol. EKG showing normal sinus rhythm at [address]-T changes. 01/05/2023 Patient remains in the ICU, she required BiPAP all the ninth yesterday except for one hour she got some rest. Today patient showed significant improvement, she is more alert awake, pleasant. Her mentation is back to normal. Her breathing is also improving with decrease respiratory rate into 18-20, per to more than 30 yesterday. Repeat chest x-ray looks similar findings to yesterday with no obvious infiltrate or consolidation. The heart is mildly enlarged, just x-ray reviewed by myself. Other vitals and labs looks stable. pro-calcitonin is slightly elevated at 0.20 She is currently receiving IV Solu-Medrol 60 mg as well as broad-spectrum antibiotics with vancomycin and cefepime Until doxycycline. Also she is on IV Lasix daily. 01/06/2023 pt today is significantly improved , she can talk easily off the bipap machine in the moring although she was using all night, she requires few liter of oxgyen per min like 4 only Because of significant improvement and she was moved out of the ICU Her treatment was the risk related, antibiotics vancomycin and doxycycline were stopped and Cefepime. IV Lasix Switched to Oral Dose of 40 Mg Daily. While She Kept on High Dose of IV Solu-Medrol 60 Mg. 01/07/2023 Patient today having some more breathing difficulty compared to yesterday however she still looks greatly although she still have some wheezing. She is saturating 90s on 4 L oxygen via nasal cannula, no much of accessory muscles and she can talk more freely. Her chest x-ray today showing worse than admission when I reviewed it but most likely this is because of the technique. She remains on IV Solu-Medrol, 60 mg. Cefepime, oral Lasix 40 mg daily. Patient did not need BiPAP last night. Patient wants to keep the [place] cath in Place because it's harder for her to get up 01/08/2023 Patient seen and evaluated in follow-up today with pulmonary following closely. Patient is continued on 4 L via nasal cannula as well as BiPAP. Patient continues on oral steroids along with inhalers and cefepime. Patient was started on cefepime empirically for concerns of pneumonia. Patient continues to be extremely dyspneic with minimal exertion and would recommend weaning FiO2 as tolerated. Patient normally wears a CPAP and has one for the outpatient setting although would recommend continuing with BiPAP especially at night from 8 PM to 6 AM. Continue BiPAP as needed as well. Patient extremely weak and has been progressively getting more weak with each admission. Patient has been hospitalized very frequently most recently and clinically very slow to improve. Case management following as there will be plans to return to rehab or possible inpatient rehab. Will await PT/OT therapy evaluation. Patient is currently afebrile denies chest pain or palpitations. Patient reports she is tolerating diet with no reports of nausea or vomiting noted. 01/09/2023 Patient is seen and evaluated in follow up today and per nursing staff was found this morning with her oxygen and BIpap mask off and O2 saturations in the 60's. Patient was placed back on bipap and numbers improved slightly although continued to be restless, combative, and not following commands. Ordered ativan to calm and was not effective. Patient extremely dyspneic and tachypneic and working with accessory muscle use. Luckily, pulmonary was rounding on the unit and ordered transfer to ICU for possible intubation and close monitoring. Patient is afebrile and continued on cefepime empirically and sputum cultures ordered. continued on breathing treatments as well as oral prednisone. 01/10/2023 Patient is seen in follow up today and continues to be in the ICU in critical condition. Patient continues on mechanical ventilation with an FI02 of 50% and peep is 5. Patient was off pressor support and off propofol and not tolerating with no plans for weaning off the vent at this time. Peg and tracheostomy is being considered in the next few days possibly. Patient overall prognosis is extremely poor and guarded at this time. PICC line is being ordered and pending. Patient is also continued on empiric antibiotics and awaiting cultures. Patient also placed back on IV steroids per pulmonary. Patient is afebrile. 01/11/2023 Patient is seen and evaluated in follow-up today continues to be in the MICU with pulmonary lpn or medical assistant following closely. Patient remains on mechanical ventilation working on weaning FiO2 as tolerated. FiO2 is currently at 45% with a PEEP of 5 and undergoing sedation holidays with no plans of weaning at this time. Patient was continued on Cefepime although cultures are negative and blood cultures remain negative will discontinue cefepime. Patient is continued on tube feeds and blood sugar slightly elevated will continue sliding scale and add low-dose long-acting twice daily and continue to monitor Accu-Cheks before meals and at bedtime. Recommend follow-up chest x-ray and labs in the a.m. 01/12/2023 Patient is seen and evaluated continues to be the ICU with sister at the bedside. Patient remains on mechanical ventilation with no plans of weaning at this time. FiO2 being adjusted down to 40% with a PEEP of 5 and patient is tolerating well. Patient is off pressor support as well as antibiotics and being closely monitored. Patient's blood sugars elevated and have added long- acting and will increase in continue to monitor closely. Chest x-ray today shows persistent bilateral effusions right greater than left with patchy densities and atelectasis. Patient is undergoing sedation holidays to monitor mental status. Sister at the bedside and discussed with Juventino and address their questions and concerns to the? Ability. Patient remains afebrile. Patient is continued on tube feeding and tolerating. Overall prognosis remains extremely g uarded. 01/13/2023 Patient is evaluated today continues to be in the ICU and undergoing weaning tri als of sedation and had CPAP trial yesterday and did not tolerate well became increasingly agitated on maximum propofol requiring sentinel. Propofol being titrated down. Patient continues off pressor support. Patient is maintained of IV antibiotics and is continued on IV steroids along with breathing treatments. Patient being started on lactulose unknown last bowel movement. Recommend daily chest x-rays and follow-up labs. Recommend to replace electrolytes per protocol. Blood sugars remain elevated and tolerating tube feeds and will continue sliding scale and increased long-acting to 20 units twice daily. Recommend Accu-Cheks before meals and at bedtime. 01/14/2023 Patient is seen in follow-up continues to be in the ICU maintained on mechanical ventilation with an FiO2 of 40% and PEEP is 5. No plans for trials of weaning today other than mild sedation holiday to assess mentation. Per nursing staff patient is following commands off sedation although does get quite restless and hypertensive and symptomatic no plans for sedation holiday today. Patient is continued on propofol and fentanyl and will continue. Patient is monitored off IV antibiotics and cultures have remained negative. Patient's blood sugars elevated and will add increased insulin covered and continue with current regimen. Pulmonary has consulted general surgery for possible tracheostomy and PEG tube placement and awaiting family decision and consent. 01/15/2023 The patient was seen and evaluated continues to be in the ICU under critical condition. Patient remains on mechanical ventilation with an FiO2 of 40% and PEEP is 5. Working on weaning trials in terms of sedation to monitor mentation with no plans of weaning from mechanical plan at this time. There were plans for possible PEG and trach this morning although family would like a few more days to see if patient is able to wean off the vent. Per pulmonary will attempt CPAP trials and assess for weaning. Chest x-ray today shows some congestion with no significant difference from previous. Patient is continued on IV Lasix daily along with IV steroids, propofol and fentanyl currently off antibiotic and pressor support. Prognosis remains extremely critical and guarded at this time. 01/16/2023 Patient is seen and evaluated in follow-up today continues to be in the ICU with overall poor and guarded prognosis. Patient remains on mechanical vent with an FiO2 of 40% and PEEP is 5. Continuing with daily sedation holiday trials and trialing spontaneous breathing trials although patient is feeling miserable. Pulmonary lpn or medical assistant leaning towards PEG and trach placement will need to discuss further with family. Patient is afebrile continued on IV steroids and breathing treatments is receiving IV Lasix daily and being closely monitored with blood sugars. Blood sugars are improved we'll continue current regimen. Patient continued on tube feedings and tolerating. 01/17/2023 Patient is seen and evaluated in follow-up today continues to be on mechanical ventilation with multiple attempts at weaning and breathing trials and failing miserably with pulmonary lpn or medical assistant following recommending PEG and trach placement in general surgery is following and will likely proceed with tracheostomy placement. Tube feedings are being placed on hold with possible intervention tomorrow. Patient continued on IV steroids along with sedation and breathing treatments with no significant change from yesterday. Patient remains on mechanical ventilation with an FiO2 of 40% and PEEP is 5. Patient also continues on propofol and fentanyl and has been off pressor support. Blood sugars were controlled and will continue current regimen. Patient is afebrile and maintained off antibiotics at this time. Cultures have remained negative. 01/18/2023 Patient is seen in the ICU continue to be on mechanical ventilation with an FiO2 of 40% and PEEP is 5. Pulmonary lpn or medical assistant following along with general surgery and awaiting family decision about possible PEG and trach. Brother, Juventino, who is the decision maker would like to wait until next week and continuing with weaning trials to see if she can come off of the vent. Overall prognosis is poor and guarded and will continue for now. Chest x-ray shows pleural effusions with no significant change from previous and patient is maintained on IV Lasix daily. Patient also continues on breathing treatments along with IV steroids. Blood sugars better controlled and tube feedings have been on hold although would recommend resuming for now if awaiting for PEG placement until next week. Labs reviewed. Patient is afebrile. 01/19/2023 Patient is seen and evaluated in follow-up today continues in the ICU on mechanical ventilation. Family discussing possible PEG/trach sometime next week if patient is unable to continue to wean off the vent. Patient is maintained on sedation and is off pressor support. We'll follow-up chest x-ray and labs in the a.m. Overall prognosis continues to remain guarded at this time. 01/20/2023 Patient is seen and evaluated in follow-up today continues to be in the ICU under critical condition on mechanical ventilation and has failed multiple attempts at weaning with pulmonary lpn or medical assistant following closely recommending PEG and trach placement. Family would like to have the patient monitored closely over the next few days and discuss treatment plan moving forward early next week if patient is unable to successfully wean on her own and then may consider PEG and trach. General surgery is following and unable to complete a PEG and trach until if patient's family decides to move forward with this. Tube feedings have been resumed and tolerating and would recommend continuing to monitor Accu-Cheks closely and treat accordingly. Chest x-ray ordered and pending at this time and a.m. labs are pending as well. 01/21/2023 Patient is seen and evaluated in follow-up today continues to be in the ICU undergoing spontaneous breathing trials and per nursing staff not tolerating very well. Patient continues on mechanical vent in the ICU with an FiO2 of 40% and PEEP is 5. Patient continues to be sedated and undergoing sedation trials to monitor mentation. Patient not able to follow commands and becomes extremely agitated and restless and blood pressure rises and is being re-sedated at this time. Patient was able to have a bowel movement yesterday and abdomen is soft and tolerating tube feeds. Family to follow-up sometime this week and discuss possible PEG and trach with general surgery following. Patient is currently afebrile. Prognosis is guarded and will follow-up on chest x-ray and close monitoring of labs. Replace electrolytes per protocol. Continue to monitor Accu-Cheks and treat accordingly with sliding scale and long-acting. Review of systems: unable to obtain as patient is on mechanical vent and sedated All medications have been reviewed Active Medications Acetaminophen (Acetaminophen Tab 500 Mg Tab) 1,000 mg PO Q6HR PRN PRN Reason: Fever and/ or Pain Last Admin: 01/12/23 22:28 Dose: 1,000 mg Albuterol Sulfate (Albuterol Nebulized 2.5 Mg/3 Ml) 2.5 mg INHALATION RT-Q4H [facility] Last Admin: 01/21/23 04:13 Dose: 2.5 mg Artificial Tears (Artificial Tears-Hypromellose Drops 15 Ml Btl) 2 drops BOTH EYES QID PRN PRN Reason: Dry Eye(s) Budesonide (Budesonide 1 Mg/2 Ml Nebu) 1 mg INHALATION RT-BID [facility] Last Admin: 01/20/23 20:11 Dose: 1 mg Carvedilol (Carvedilol 12.5 Mg Tab) 12.5 mg PO BID-W/MEALS [facility] Last Admin: 01/21/23 06:19 Dose: 12.5 mg Chlorhexidine Gluconate (Chlorhexidine Gluconate 15 Ml Cup) 15 ml MUCOUS MEM BID [facility] Last Admin: 01/20/23 21:10 Dose: 15 ml Dextrose/Water (Dextrose 50% Syringe 50 Ml) 25 ml IVP PER PROTOCOL PRN; Protocol PRN Reason: Hypoglycemia Dextrose/Water (Dextrose 50% Syringe 50 Ml) 50 ml IVP PER PROTOCOL PRN; Protocol PRN Reason: Hypoglycemia Duloxetine HCl (Duloxetine Hcl 30 Mg Capsule.Dr) 30 mg PO DAILY@0600 [facility] Last Admin: 01/21/23 05:30 Dose: 30 mg Formoterol Fumarate (Formoterol Fumarate 20 Mcg/2 Ml Nebu) 20 mcg INHALATION RT-BID [facility] Last Admin: 01/20/23 20:11 Dose: 20 mcg Furosemide (Furosemide 10 Mg/Ml 2 Ml Vial) 20 mg IV DAILY [facility] Last Admin: 01/20/23 08:14 Dose: 20 mg Heparin Sodium (Porcine) (Heparin Sodium,Porcine/Pf 5,000 Unit/0.5 Ml Syringe) 5,000 unit SQ Q12HR [facility] Last Admin: 01/20/23 21:10 Dose: 5,000 unit Sodium Chloride (Saline 0.9%) 1,000 mls @ 20 mls/hr IV .Q24H [facility] Last Admin: 01/20/23 17:30 Dose: 20 mls/hr Propofol 1,000 mg/ IV Solution 100 mls @ 10.452 mls/hr IV .Q9H35M [facility]; Protocol Last Admin: 01/21/23 06:18 Dose: 45 mcg/kg/min, 23.517 mls/hr Norepinephrine Bitartrate 4 mg (/ Sodium Chloride) 254 mls @ 9.956 mls/hr IV .Q24H [facility]; Protocol Last Admin: 01/20/23 08:56 Dose: Not Given Fentanyl Citrate 1,000 mcg/ (Sodium Chloride) 100 mls @ 8.8 mls/hr IV .[id number] [facility] Last Admin: 01/21/23 03:05 Dose: 1 mcg/kg/hr, 8.8 mls/hr Clevidipine 25 mg/ IV Solution 50 mls @ 2 mls/hr IV .Q24H [facility]; Protocol Last Admin: 01/20/23 14:43 Dose: Not Given Insulin Aspart (Insulin Aspart (Novolog) 100 Unit/Ml Vial) 0 unit SQ Q4H [facility]; Protocol Last Admin: 01/21/23 03:49 Dose: Not Given Insulin Aspart (Insulin Aspart (Novolog) 100 Unit/Ml Vial) 5 unit SQ Q4H [facility] Last Admin: 01/21/23 03:49 Dose: Not Given Insulin Detemir (Insulin Detemir (Levemir) 100 Unit/Ml Syr) 20 unit SQ BID@0700,2100 [facility] Last Admin: 01/21/23 06:19 Dose: 20 unit Ipratropium Newell (Ipratropium 0.5 Mg/2.5 Ml Nebu) 0.5 mg INHALATION RT-Q4H [facility] Last Admin: 01/21/23 04:13 Dose: 0.5 mg Lactulose (Lactulose 20 Gm/30 Ml Cup) 20 gm PO BID [facility] Last Admin: 01/20/23 21:10 Dose: 20 gm Methylprednisolone Sodium Succinate (Methylprednisolone Sod Succi 125 Mg/2 Ml Vial) 60 mg IV Q6HR [facility] Last Admin: 01/21/23 05:29 Dose: 60 mg Miscellaneous Information (Potassium Replacement Protocol 1 Each Misc) 1 each MISCELLANE DAILY PRN; Protocol PRN Reason: Per Protocol Miscellaneous Information (Magnesium Replacement Protocol 1 Each Misc) 1 each MISCELLANE DAILY PRN; Protocol PRN Reason: Per Protocol Montelukast Sodium (Montelukast 10 Mg Tab) 10 mg PO HS [facility] Last Admin: 01/20/23 21:10 Dose: 10 mg Naloxone HCl (Naloxone 0.4 Mg/Ml 1 Ml Vial) 0.2 mg IV Q2M PRN PRN Reason: Opioid Reversal Duoneb (Dethwhrjq6cc (/Ipratropium0.5mg)) 1 each INHALATION RT-QID [facility] Last Admin: 01/09/23 16:12 Dose: 1 each Pantoprazole Sodium (Pantoprazole 40 Mg/10 Ml Vial) 40 mg IVP BID [facility] Last Admin: 01/20/23 21:11 Dose: 40 mg Polyethylene Glycol (Polyethylene Glycol 3350 17 Gm Powd.Pack) 17 gm PO DAILY [facility] Last Admin: 01/20/23 08:14 Dose: 17 gm Ropinirole HCl (Ropinirole Hcl 4 Mg Tablet) 4 mg PO HS [facility] Last Admin: 01/20/23 21:10 Dose: 4 mg Theophylline (Theophylline 24 Hour 400 Mg Cap.Er.24h) 400 mg PO DAILY@0600 [facility] Last Admin: 01/21/23 05:29 Dose: 400 mg Tobramycin/Dexamethasone (Tobra-Dexamet 0.3-0.1% Ophth Drops 2.5 Ml Btl) 2 drops RIGHT EYE Q4HR [facility] Last Admin: 01/21/23 03:49 Dose: 2 drops Verapamil HCl (Verapamil 40 Mg Tab) 40 mg PO TID [facility] Last Admin: 01/20/23 21:10 Dose: 40 mg Physical exam : GENERAL: The patient is on mechanical vent with an FI02 of 40% and peep is 5. Sedated. Well developed, well nourished. obese HEENT: Pupils are round and equally reacting to light. EOMI. No scleral icterus. No conjunctival pallor. Normocephalic, atraumatic. No pharyngeal erythema. No thyromegaly. CARDIOVASCULAR: S1 and S2 muffled PULMONARY: Extremely diminished breath sounds bilaterally with course rhonchi, faint crackles noted at the bases ABDOMEN: Soft, nontender, obese. nondistended, normoactive bowel sounds. No palpable organomegaly. MUSCULOSKELETAL: No joint swelling or deformity. EXTREMITIES: No cyanosis, clubbing, or pedal edema. NEUROLOGICAL: unable to assess, on sedation of propofol and fentanyl SKIN: No rashes. no petechiae. Assessment: Acute COPD exacerbation Acute on chronic hypoxic respiratory failure patient is normally at home on 3 L nasal cannula, now requriing mechanical ventilation on 01/09/2023 Acute respiratory acidosis Steroid-induced hyperglycemia Altered mental status possibly secondary to C02 narcosis sepsis, doubt septic shock, sepsis mostly due to hypovolemia and hypotension, requiring pressor support, now off pressor support Acute on chronic hypercapnic respiratory failure Chronic leukocytosis History of COVID-19 pneumonia Benign essential hypertension History of rheumatoid osteoarthritis Chronic back pain Former smoker Full code Plan: Recommend to continue with current medications and Patient continues on mechanical vent with an FI02 of 40% and peep of 5 and being closely monitored in the ICU. Continued on IV steroids and breathing inhalational treatments. Pulmonary following closely recommending tracheostomy and PEG tube placement and family would like to wait until next week to see if patient is able to be weaned off. General surgery following and would not be available to perform the PEG/trach until next week. Patient has had multiple attempts on spontaneous breathing trials and failing miserably. We'll continue to monitor closely. Spontaneous breathing trial today was unsuccessful and patient placed back on propofol and fentanyl. recommend monitoring blood sugars before meals at bedtime and continuing with sliding scale and long-acting. tube feedings being tolerated and patient did have a bowel movement yesterday Currently undergoing sedation trials to monitor mental status, per nursing staff patient is not following commands while off sedation becomes extremely agitated and restless and hypertensive Will discuss further with family this week if planning to proceed with PEG and trach with general surgery following Due to multiple complex medical issues, overall prognosis is extremely poor and guarded The impression and plan of care has been dictated by Teresa Portillo, Nurse Practitioner as directed. Dr. Hilton MD I have performed a history and examination and MDM of this patient, discussed the same with the dictator, and agree with the dictator's assessment and plan as written ,documented as a scribe. Based on total visit time, I have performed more than 50% of the visit. Objective - Vital Signs Vital signs: Vital Signs Temp 97.9 F 01/21/23 04:00 Pulse 51 L 01/21/23 07:00 Resp 16 01/21/23 07:00 BP 117/61 01/21/23 07:00 Pulse Ox 93 L 01/21/23 07:00 FiO2 40 01/21/23 04:09 Intake & Output 01/20/23 01/21/23 01/21/23 18:59 06:59 18:59 Intake Total 1036.082 898.848 38 Output Total 900 522 75 Balance 136.082 376.848 -37 Weight 95.6 kg Intake: IV 169 143 13 ARTERIAL LINE. 39 33 3 Sodium Chloride 0.9% 1, 130 110 10 000 ml @ 20 mls/hr IV . Q24H [facility] Rx#:[id number] Intake, IV Titration 407.082 365.848 Amount Sodium Chloride 0.9% 80 99.000 100 ml @ 1 MCG/KG/HR 8.8 mls/ hr IV .[id number] [facility] with fentaNYL (PF) 1,000 mcg Rx#:[id number] propofoL 1,000 mg In 308.082 265.848 Empty Bag 1 bag @ 20 MCG/ KG/MIN 10.452 mls/hr IV . Q9H35M [facility] Rx#:[id number] Tube Feeding 340 300 25 Other 120 90 Output: Urine 900 520 75 Stool 2 Other: Voiding Method Indwelling Catheter Indwelling Catheter ABP, PAP, CO, CI - Last Documented Arterial Blood Pressure 120/40 - Labs CBC & Chem 7: 01/21/23 03:46 01/21/23 03:46 Labs: Abnormal Lab Results - Last 24 Hours (Table) 01/20/23 01/20/23 01/20/23 Range/Units 11:53 15:59 23:09 WBC (3.8-10.6) k/uL RBC (3.80-5.40) m/uL Hgb (11.4-16.0) gm/dL ABG pCO2 (35-45) mmHg ABG pO2 (83-108) mmHg ABG HCO3 (21-25) mmol/L ABG Total CO2 (19-24) mmol/L ABG O2 Saturation (94-97) % Sodium (137-145) mmol/L Chloride (98-107) mmol/L Carbon Dioxide (22-30) mmol/L BUN (7-17) mg/dL Creatinine (0.52-1.04) mg/dL Glucose (74-99) mg/dL POC Glucose (mg/dL) 153 H 146 H 137 H (70-110) mg/dL Calcium (8.4-10.2) mg/dL Magnesium (1.6-2.3) mg/dL 01/21/23 01/21/23 01/21/23 Range/Units 00:19 03:42 03:46 WBC (3.8-10.6) k/uL RBC (3.80-5.40) m/uL Hgb (11.4-16.0) gm/dL ABG pCO2 (35-45) mmHg ABG pO2 (83-108) mmHg ABG HCO3 (21-25) mmol/L ABG Total CO2 (19-24) mmol/L ABG O2 Saturation (94-97) % Sodium 133 L (137-145) mmol/L Chloride 96 L (98-107) mmol/L Carbon Dioxide 35 H (22-30) mmol/L BUN 41 H (7-17) mg/dL Creatinine 0.49 L (0.52-1.04) mg/dL Glucose 148 H (74-99) mg/dL POC Glucose (mg/dL) 143 H 147 H (70-110) mg/dL Calcium 7.9 L (8.4-10.2) mg/dL Magnesium 2.4 H (1.6-2.3) mg/dL 01/21/23 01/21/23 01/21/23 Range/Units 03:46 06:09 06:21 WBC 17.9 H (3.8-10.6) k/uL RBC 3.56 L (3.80-5.40) m/uL Hgb 11.0 L (11.4-16.0) gm/dL ABG pCO2 66 H (35-45) mmHg ABG pO2 68 L (83-108) mmHg ABG HCO3 40 H* (21-25) mmol/L ABG Total CO2 42 H (19-24) mmol/L ABG O2 Saturation 93.0 L (94-97) % Sodium (137-145) mmol/L Chloride (98-107) mmol/L Carbon Dioxide (22-30) mmol/L BUN (7-17) mg/dL Creatinine (0.52-1.04) mg/dL Glucose (74-99) mg/dL POC Glucose (mg/dL) 144 H (70-110) mg/dL Calcium (8.4-10.2) mg/dL Magnesium (1.6-2.3) mg/dL
[2023-01-21 11:32] LABS: Glucose,Whole Blood 135 mg/dL (70-110)
[2023-01-21] MEDS: CLEVIDIPINE BUTYRATE 25 MG in EMPTY BAG 1 BAG IV SCH (14:08)
[2023-01-21 16:06] LABS: Glucose,Whole Blood 93 mg/dL (70-110)
[2023-01-21 17:14] LABS: Glucose,Whole Blood 128 mg/dL (70-110)
[2023-01-21 20:13] LABS: Glucose,Whole Blood 94 mg/dL (70-110)
[2023-01-21] MEDS: MONTELUKAST 10 MG TAB PO SCH (20:14)
[2023-01-21] MEDS: rOPINIRole HCL 4 MG TABLET PO SCH (20:15)
[2023-01-21] MEDS: SODIUM CHLORIDE 0.9% 1,000 ML IV SCH (23:40)
[2023-01-22] MEDS: ALBUTEROL NEBULIZED 2.5 MG/3 ML INHALATION SCH ×5 (00:19→15:01)
[2023-01-22] MEDS: IPRATROPIUM 0.5 MG/2.5 ML NEBU INHALATION SCH ×5 (00:19→15:02)
[2023-01-22 00:21] LABS: Glucose,Whole Blood 125 mg/dL (70-110)
[2023-01-22] MEDS: methylPREDNISolone SOD SUCCI 125 MG/2 ML VIAL IV SCH ×2 (00:21→06:05)
[2023-01-22] MEDS: SODIUM CHLORIDE 0.9% 80 ML with fentaNYL (PF) 1,000 MCG IV SCH ×4 (00:22→10:04)
[2023-01-22] MEDS: INSULIN ASPART (NovoLOG) 100 UNIT/ML VIAL SQ SCH ×7 (00:22→09:40)
[2023-01-22 00:50] VITALS: RESP 16
[2023-01-22 04:13] LABS: Glucose,Whole Blood 119 mg/dL (70-110)
[2023-01-22 05:56] LABS: Potassium 4.5 mmol/L (3.5-5.1)
[2023-01-22 05:57] LABS: African American GFR (CKD) >90 (>60 ml/min/1.73 sqM); Blood Urea Nitrogen 39 mg/dL (7-17); Calcium 7.8 mg/dL (8.4-10.2); Chloride 95 mmol/L (98-107); Glucose 106 mg/dL (74-99); Non-African American GFR(CKD) >90 (>60 ml/min/1.73 sqM); Sodium 133 mmol/L (137-145)
[2023-01-22 05:57] LABS: ABG Base Excess 15.5 mmol/L; ABG Oxygen Saturation 94.9 % (94-97); ABG PH 7.37 (7.35-7.45); ABG PO2 75 mmHg (83-108); ABG TCO2 43 mmol/L (19-24); Allen Test Performed? Yes
[2023-01-22 06:04] LABS: Anion Gap -1 mmol/L
[2023-01-22] MEDS: THEOPHYLLINE 24 HOUR 400 MG CAP.ER.24H PO SCH (06:06)
[2023-01-22] MEDS: DULoxetine HCL 30 MG CAPSULE.DR PO SCH (06:06)
[2023-01-22] MEDS: INSULIN DETEMIR (LEVEMIR) 100 UNIT/ML SYR SQ SCH (06:06)
[2023-01-22 06:13] LABS: ABG HCO3 41 mmol/L (21-25); ABG PCO2 71 mmHg (35-45)
[2023-01-22 06:40] LABS: Carbon Dioxide 39 mmol/L (22-30)
[2023-01-22] MEDS: carvediloL 12.5 MG TAB PO SCH (06:54)
--- NOTE | 2023-01-22 06:59 | XR ---
EXAMINATION TYPE: XR chest 1V portable DATE OF EXAM: 01/22/2023 CLINICAL HISTORY: Difficulty breathing progress study. TECHNIQUE: Single AP portable semiupright view of the chest is obtained. COMPARISON: Chest x-ray from one day earlier and older studies. FINDINGS: Stable endotracheal and orogastric tubes. Persistent mild cardiomegaly with right lower lobe increased opacity. Left lung remains clear. Osseou s structures are intact. IMPRESSION: Persistent mild cardiomegaly with small right pleural effusion and associated right basil ar atelectasis and/or infiltrate.
[2023-01-22 07:05] LABS: HCT 34.1 % (34.0-46.0); MCH 31.8 pg (25.0-35.0); MCHC 32.3 g/dL (31.0-37.0); MCV 98.5 fL (80.0-100.0); Platelet Count 171 k/uL (150-450); RBC 3.47 m/uL (3.80-5.40); RDW 15.3 % (11.5-15.5)
--- NOTE | 2023-01-22 07:56 | P.PN ---
Subjective Progress Note Date: 01/22/23 Today's evaluation of 01/22/2023, the patient is being seen for a follow-up. Remains intubated on a mechanical ventilator. She has been intubated since 01/09/2023 and no decisions have been made regarding tracheostomy tube insertion for prolonged respiratory failure. Chest x-ray shows right lower lobe pneumonia. There is also 2 which is in good location. Lung volumes are essentially small. She is currently on a assist control mode of mechanical ventilation at the rate of 16, tidal volume of 375, FiO2 of 45% and a PEEP of 5. Her peak airway pressures around 35. She is on sedation and she is currently on propofol running at 50 microvascular kilogram per minute and fentanyl is running at 1 mcg/kg/h. She is comfortable, sick sinus a mechanical ventilator. Blood gases from today shows a pH of 7.37 with a pCO2 of 71 and pO2 of 75. No cultures are available from the lungs. The patient is currently on a combination of bronchodilators. The patient is on albuterol and ipratropium nebulized treatments [id number]. The patient is also on budesonide neb blotchiness twice a day, she is on IV Solu-Medrol 60 mg every 6 hours. No antibiotic coverage at this point in time. Her cardiac rhythm is sinus. She is receiving enteral feeding for nutritional support and currently she is on vital high-protein at the rate of 25 mL an hour. Sodiums of 133 with a potassium level of 4.5, serum bicarb is at 39, the risk on the 60 with a hemoglobin of 11.0. She is afebrile for now. She is hemodynamically stable on no pressors. Overall fluid balance over the past 24 hours is positive for 84 mL and her current IV fluids are in the form of 0.9 at 10 mL an hour. She has developed edema in her upper extremities bilaterally with limited edema in lower extremities. She has a PICC line in left upper extremity and NG tube also in place. Objective - Vital Signs Vital signs: Vital Signs Temp 97.9 F 01/21/23 20:00 Pulse 63 01/22/23 07:00 Resp 16 01/22/23 07:00 BP 129/73 01/22/23 07:00 Pulse Ox 93 L 01/22/23 07:00 FiO2 45 01/22/23 04:17 Intake & Output 01/21/23 01/22/23 01/22/23 18:59 06:59 18:59 Intake Total 1091.611 882.869 38 Output Total 1020 470 50 Balance 71.611 412.869 -12 Weight 94 kg Intake: IV 156 156 13 ARTERIAL LINE. 36 36 3 Sodium Chloride 0.9% 1, 120 120 10 000 ml @ 20 mls/hr IV . Q24H LATESHA Rx#:[id number] Intake, IV Titration 365.611 356.869 Amount Sodium Chloride 0.9% 80 97.387 89.907 ml @ 1 MCG/KG/HR 8.8 mls/ hr IV .[id number] LATESHA with fentaNYL (PF) 1,000 mcg Rx#:[id number] propofoL 1,000 mg In 268.224 266.962 Empty Bag 1 bag @ 20 MCG/ KG/MIN 10.452 mls/hr IV . Q9H35M LATESHA Rx#:[id number] Tube Feeding 300 300 25 Other 270 70 Output: Urine 1020 470 50 Other: Voiding Method Indwelling Catheter Indwelling Catheter ABP, PAP, CO, CI - Last Documented Arterial Blood Pressure 89/77 - Exam No acute distress, currently sedated, with an orally placed endotracheal tube., Remains sedated with a combination propofol and fentanyl. HEENT examination is grossly unremarkable. The patient has an NG tube in place. Neck supple. Full range of motion. No adenopathy thyromegaly or neck vein distention. Cardiovascular examination reveals regular rhythm rate. S1-S2 normal. No S3 or S4. No discernible murmur noted. Lungs reveal expiratory rhonchi and wheezes. Breath sounds equal. . Breath sounds are essentially unchanged. Abdomen soft with bowel sounds, and without masses or tenderness. Extremities are intact. No cyanosis clubbing and there is edema in the upper e xtremities with a PICC line in the left upper extremity. Limited edema lower extremities. There is adequate pulses in lower extremities bilaterally. Skin is without rash or lesion. Neurologic examination cannot be adequately assessed at this time. - Labs CBC & Chem 7: 01/22/23 05:30 01/22/23 05:49 Labs: Abnormal Lab Results - Last 24 Hours (Table) 01/21/23 01/21/23 01/21/23 Range/Units 08:46 11:29 17:12 WBC (3.8-10.6) k/uL RBC (3.80-5.40) m/uL Hgb (11.4-16.0) gm/dL ABG pCO2 (35-45) mmHg ABG pO2 (83-108) mmHg ABG HCO3 (21-25) mmol/L ABG Total CO2 (19-24) mmol/L Sodium (137-145) mmol/L Chloride (98-107) mmol/L Carbon Dioxide (22-30) mmol/L BUN (7-17) mg/dL Glucose (74-99) mg/dL POC Glucose (mg/dL) 161 H 135 H 128 H (70-110) mg/dL Calcium (8.4-10.2) mg/dL 01/22/23 01/22/23 01/22/23 Range/Units 00:08 04:11 05:30 WBC 16.0 H (3.8-10.6) k/uL RBC 3.47 L (3.80-5.40) m/uL Hgb 11.0 L (11.4-16.0) gm/dL ABG pCO2 (35-45) mmHg ABG pO2 (83-108) mmHg ABG HCO3 (21-25) mmol/L ABG Total CO2 (19-24) mmol/L Sodium (137-145) mmol/L Chloride (98-107) mmol/L Carbon Dioxide (22-30) mmol/L BUN (7-17) mg/dL Glucose (74-99) mg/dL POC Glucose (mg/dL) 125 H 119 H (70-110) mg/dL Calcium (8.4-10.2) mg/dL 01/22/23 01/22/23 Range/Units 05:49 06:05 WBC (3.8-10.6) k/uL RBC (3.80-5.40) m/uL Hgb (11.4-16.0) gm/dL ABG pCO2 71 H* (35-45) mmHg ABG pO2 75 L (83-108) mmHg ABG HCO3 41 H* (21-25) mmol/L ABG Total CO2 43 H (19-24) mmol/L Sodium 133 L (137-145) mmol/L Chloride 95 L (98-107) mmol/L Carbon Dioxide 39 H (22-30) mmol/L BUN 39 H (7-17) mg/dL Glucose 106 H (74-99) mg/dL POC Glucose (mg/dL) (70-110) mg/dL Calcium 7.8 L (8.4-10.2) mg/dL Assessment and Plan Plan: Acute hypoxic/hypercapnic respiratory failure in a patient with known history of end-stage COPD and the right lower lobe pneumonia. Patient is not a candidate for any weaning. Patient continues to have elevated peak airway pressure. In the right lower lobe consolidation. She has failed various attemp ts to wean. We'll make it clear to the family if ongoing treatment is under plan, she is going to need long-term ventilator support, and tracheostomy. Otherwise, I do not see this patient extubated at any point in time. 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 She has [facility] for [facility] exacerbation and she has significant limitation performance and functional status due to advanced COPD. She is currently on oxygen at 3 -4L. Her last exacerbation was in November of 2022. The patient is on a combination of Perforomist and Pulmicort neb treatments twice a day, theophylline and DuoNeb nebulized treatment 4 times a day, VPAP auto, oxygen. Acute on chronic hypoxemic respiratory failure secondary to above, note that she has chronic hypoxic so distended and she is on home oxygen at 3 L/m per nasal cannula History of a left upper lobe lesion measuring 18 x 13 mm in size. Being followed in the outpatient setting, most recent CAT scan of the chest that was done on 09/18/2022 showed a similar left upper lobe pulmonary opacity measuring 16 mm and this was a groundglass opacity, likely inflammatory rather than being malignant. No mediastinal lymphadenopathy. History of CoVID in 19 pneumonia History of chronic lower extremity edema Hypertension Attention deficit hyperactivity disorder Rheumatoid arthritis Chronic back pain Former smoker Chronic steroid intake with cushingoid features Medical debility second above-mentioned comorbidities Plan Obtain a CAT scan of the chest with contrast Lasix 40 mg IV every 24 hours May consider bronchoscopy and lavage of the right lower lobe, all of the cultures are negative and the patient is on no antibiotics Continue bronchodilators Continue steroids Monitor the blood sugar and put the patient has vascular insulin coverage Keep the patient on a combination of propofol and fentanyl Repeat pro-calcitonin level Hold off any antibiotics for now pending further workup I do not see this patient extubating at any point in time especially the patient has advanced end-stage COPD, chronic hypoxic/hypercapnic respiratory failure and very limited reserve on her limited baseline performance of functional status. Poor prognosis. Tracheostomy tube insertion and PEG tube insertion if the family is contemplating long-term ventilator care. Prognosis remains extremely poor We'll continue to follow Critical care evaluation more than 30 minutes Time with Patient: Greater than 30
[2023-01-22] MEDS: BUDESONIDE 1 MG/2 ML NEBU INHALATION SCH (08:05)
[2023-01-22] MEDS: FORMOTEROL FUMARATE 20 MCG/2 ML NEBU INHALATION SCH (08:19)
[2023-01-22 08:52] LABS: Glucose,Whole Blood 94 mg/dL (70-110)
[2023-01-22] MEDS ORDERED: FUROSEMIDE 10 MG/ML 4 ML VIAL IV SCH (09:00)
[2023-01-22] MEDS: PANTOPRAZOLE 40 MG/10 ML VIAL IVP SCH (10:02)
[2023-01-22] MEDS: HEPARIN SODIUM,PORCINE/PF 5,000 UNIT/0.5 ML SYRINGE SQ SCH (10:03)
[2023-01-22] MEDS: LACTULOSE 20 GM/30 ML CUP PO SCH (10:03)
[2023-01-22] MEDS: CHLORHEXIDINE GLUCONATE 15 ML CUP MUCOUS MEM SCH (10:03)
[2023-01-22] MEDS: polyethylene glycoL 3350 17 GM POWD.PACK PO SCH (10:04)
[2023-01-22] MEDS: VERAPAMIL 40 MG TAB PO SCH (10:04)
[2023-01-22 11:05] VITALS: BMI 40.4
--- NOTE | 2023-01-22 11:16 | P.PN ---
Subjective Progress Note Date: 01/22/23 CHIEF COMPLAINT: Respiratory failure, malnutrition HISTORY OF PRESENT ILLNESS: Patient is currently in the ICU intubated and on mechanical ventilation. Patient scheduled for CT of the chest today. PHYSICAL EXAM: VITAL SIGNS: Reviewed. GENERAL: Well-developed in no acute distress. ABDOMEN: Soft. Nondistended. Nontender. ASSESSMENT: 1. Respiratory failure 2. Moderate protein calorie malnutrition PLAN: -Awaiting family's decision regarding possible tracheostomy and PEG tube placement Physician Fig Bar Machine Operator note has been reviewed by physician. Signing provider agrees with the documented findings, assessment, and plan of care. I have personally seen and examined the patient, reviewed the VEHICLE OPERATOR TECHNICIAN /PAs history, exam and MDM and agree with the assessment and plan as written. Based on total v isit time, I have performed more than 50% of the visit. As above: Patient's family here today. They are leaning towards comfort measures. If so we'll sign off. Objective - Vital Signs Vital signs: Vital Signs Temp 97.1 F L 01/22/23 09:00 Pulse 49 L 01/22/23 10:00 Resp 16 01/22/23 10:00 BP 129/56 01/22/23 10:00 Pulse Ox 93 L 01/22/23 10:00 FiO2 45 01/22/23 09:00 Intake & Output 01/21/23 01/22/23 01/22/23 18:59 06:59 18:59 Intake Total 1091.611 882.869 267.36 Output Total 1020 470 200 Balance 71.611 412.869 67.36 Weight 94 kg 94 kg Intake: IV 156 156 52 ARTERIAL LINE. 36 36 12 Sodium Chloride 0.9% 1, 120 120 40 000 ml @ 20 mls/hr IV . Q24H LATESHA Rx#:[id number] Intake, IV Titration 365.611 356.869 85.36 Amount Sodium Chloride 0.9% 80 97.387 89.907 85.36 ml @ 1 MCG/KG/HR 8.8 mls/ hr IV .[id number] LATESHA with fentaNYL (PF) 1,000 mcg Rx#:[id number] propofoL 1,000 mg In 268.224 266.962 Empty Bag 1 bag @ 20 MCG/ KG/MIN 10.452 mls/hr IV . Q9H35M LATESHA Rx#:[id number] Tube Feeding 300 300 100 Other 270 70 30 Output: Urine 1020 470 200 Other: Voiding Method Indwelling Catheter Indwelling Catheter Indwelling Catheter ABP, PAP, CO, CI - Last Documented Arterial Blood Pressure 126/51 - Labs CBC & Chem 7: 01/22/23 05:30 01/22/23 05:49 Labs: Abnormal Lab Results - Last 24 Hours (Table) 01/21/23 01/21/23 01/22/23 Range/Units 11:29 17:12 00:08 WBC (3.8-10.6) k/uL RBC (3.80-5.40) m/uL Hgb (11.4-16.0) gm/dL ABG pCO2 (35-45) mmHg ABG pO2 (83-108) mmHg ABG HCO3 (21-25) mmol/L ABG Total CO2 (19-24) mmol/L Sodium (137-145) mmol/L Chloride (98-107) mmol/L Carbon Dioxide (22-30) mmol/L BUN (7-17) mg/dL Glucose (74-99) mg/dL POC Glucose (mg/dL) 135 H 128 H 125 H (70-110) mg/dL Calcium (8.4-10.2) mg/dL 01/22/23 01/22/23 01/22/23 Range/Units 04:11 05:30 05:49 WBC 16.0 H (3.8-10.6) k/uL RBC 3.47 L (3.80-5.40) m/uL Hgb 11.0 L (11.4-16.0) gm/dL ABG pCO2 (35-45) mmHg ABG pO2 (83-108) mmHg ABG HCO3 (21-25) mmol/L ABG Total CO2 (19-24) mmol/L Sodium 133 L (137-145) mmol/L Chloride 95 L (98-107) mmol/L Carbon Dioxide 39 H (22-30) mmol/L BUN 39 H (7-17) mg/dL Glucose 106 H (74-99) mg/dL POC Glucose (mg/dL) 119 H (70-110) mg/dL Calcium 7.8 L (8.4-10.2) mg/dL 01/22/23 Range/Units 06:05 WBC (3.8-10.6) k/uL RBC (3.80-5.40) m/uL Hgb (11.4-16.0) gm/dL ABG pCO2 71 H* (35-45) mmHg ABG pO2 75 L (83-108) mmHg ABG HCO3 41 H* (21-25) mmol/L ABG Total CO2 43 H (19-24) mmol/L Sodium (137-145) mmol/L Chloride (98-107) mmol/L Carbon Dioxide (22-30) mmol/L BUN (7-17) mg/dL Glucose (74-99) mg/dL POC Glucose (mg/dL) (70-110) mg/dL Calcium (8.4-10.2) mg/dL
[2023-01-22 12:08] VITALS: TEMP 97.4
[2023-01-22] MEDS ORDERED: LORazepam 2 MG/ML INJ IV PRN (13:38)
[2023-01-22] MEDS ORDERED: ATROPINE OPHTH SOLN 1% 5ML BTL SUBLINGUAL PRN (13:38)
[2023-01-22] MEDS ORDERED: MORPHINE SULFATE (100 MG/2 ML) 100 MG in SODIUM CHLORIDE 0.9% 100 ML IV SCH (13:45)
[2023-01-22] MEDS ORDERED: SCOPOLAMINE 1 MG/72 HR PATCH TRANSDERM SCH (13:45)
[2023-01-22 13:48] VITALS: BP 155/69; PULSE 66
--- NOTE | 2023-01-22 18:46 | P.DS ---
Providers Date of admission: 01/04/23 15:02 Expected date of discharge: 01/22/23 Attending physician: Logan Parikh MD Consults: 01/04/23 15:23 Consult Physician Stat Consulting Provider: Jose Elias Goodman Consult Reason/Comments: ICU patient Do you want consulting provider notified?: Already Contacted 01/14/23 09:08 Consult Physician Routine Consulting Provider: Edwin Burgess Consult Reason/Comments: Trach/PEG Do you want consulting provider notified?: Yes Primary care physician: [facility] Course: Preliminary cause of Chronic obstructive pulmonary disease Final diagnosis Acute COPD exacerbation Acute on chronic hypoxic respiratory failure patient is normally at home on 3 L nasal cannula, now requriing mechanical ventilation on 01/09/2023 Acute respiratory acidosis Steroid-induced hyperglycemia Altered mental status possibly secondary to C02 narcosis sepsis, mostly due to hypovolemia and hypotension, requiring pressor support Acute on chronic hypercapnic respiratory failure Chronic leukocytosis History of COVID-19 pneumonia Benign essential hypertension History of rheumatoid osteoarthritis Chronic back pain Former smoker No code Discharge disposition Patient has . According to nursing documentation, time of was 1515 on 01/22/2023. Patient was made comfort care per family request and with family present. Total time taken is greater than 35 minutes. Hospital course This is a 67-year-old female who was recently admitted with COPD exacerbation and shortness of breath requiring BiPAP support. Patient's respiratory status continued to decline requiring mechanical ventilation with multiple unsuccessful attempts at weaning. Family agreed and made their decision to make the patient comfort measures and wean off intubation. Patient was carrying an extremely poor and guarded prognosis. Patient with significant COPD and lung disease. Patient at 1515 with family present. Please refer to other consultation notes for further HPI. The impression and plan of care has been dictated by Teresa Portillo Nurse Practitioner as directed. Dr. Hilton MD I have performed a history and examination and MDM of this patient, discussed the same with the dictator, and agree with the dictator's assessment and plan as written ,documented as a scribe. Based on total visit time, I have performed more than 50% of the visit. Patient Condition at Discharge: Stable Plan - Discharge Summary Discharge Rx Participant: Yes New Discharge Prescriptions: No Action DULoxetine HCL [Cymbalta] 30 mg PO DAILY@0600 Montelukast [Singulair] 10 mg PO HS Meloxicam 15 mg PO DAILY@0600 Budesonide [Pulmicort] 0.5 mg INHALATION RT-BID rOPINIRole HCL [Requip] 4 mg PO HS Verapamil HCl [Verapamil ER] 120 mg PO DAILY@0600 Famotidine [Pepcid] 20 mg PO BID #60 tablet Tiotropium 2.5 Mcg/Puff [Spiriva Respimat 2.5 Mcg] 2 puff INHALATION RT-DAILY each Tobra-Dexamet 0.3-0.1% Eye Adelita [Tobradex Ophth Susp] 2 drops RIGHT EYE Q4HR ml ALPRAZolam [Xanax] 0.25 mg PO Q6H PRN #4 tab PRN Reason: Anxiety Ferrous Sulfate [Iron (65 MG Elemental)] 325 mg PO DAILY Magnesium Oxide [Mag-Ox] 200 mg PO DAILY Cetirizine HCl 10 mg PO DAILY@0600 Albuterol Sulfate [Ventolin HFA] 2 puff INHALATION RT-Q6H PRN PRN Reason: Shortness Of Breath Theophylline 24 Hour [Sekou-24] 400 mg PO DAILY@0600 Ipratropium-Albuterol Nebulize [Duoneb 0.5 mg-3 mg/3 ml Soln] 3 ml INHALATION RT-QID Formoterol Fumarate [Perforomist] 20 mcg INHALATION RT-BID predniSONE 10 mg PO DAILY@0600 Acetaminophen Tab [Tylenol] 1,000 mg PO Q6HR PRN tab PRN Reason: Fever And/ Or Pain Albuterol Inhaler [Ventolin Hfa Inhaler] 2 puff INHALATION RT-QID each Doxycycline [Vibramycin] 100 mg PO BID 7 Days #14 cap carvediloL [Coreg] 6.25 mg PO BID Furosemide [Lasix] 20 mg PO BID@0600,1200 Insulin Lispro [humaLOG Kwikpen] See Protocol SQ ACHS Discharge Medication List DULoxetine HCL [Cymbalta] 30 mg PO DAILY@0600 01/15/21 [History] Montelukast [Singulair] 10 mg PO HS 02/19/21 [History] Ferrous Sulfate [Iron (65 MG Elemental)] 325 mg PO DAILY 07/04/21 [History] Magnesium Oxide [Mag-Ox] 200 mg PO DAILY 07/14/21 [History] Meloxicam 15 mg PO DAILY@0600 08/05/21 [History] Cetirizine HCl 10 mg PO DAILY@0600 04/20/22 [History] Albuterol Sulfate [Ventolin HFA] 2 puff INHALATION RT-Q6H PRN 08/24/22 [History] Budesonide [Pulmicort] 0.5 mg INHALATION RT-BID 09/19/22 [History] Formoterol Fumarate [Perforomist] 20 mcg INHALATION RT-BID 09/19/22 [History] Ipratropium-Albuterol Nebulize [Duoneb 0.5 mg-3 mg/3 ml Soln] 3 ml INHALATION RT-QID 09/19/22 [History] Theophylline 24 Hour [Sekou-24] 400 mg PO DAILY@0600 09/19/22 [History] Verapamil HCl [Verapamil ER] 120 mg PO DAILY@0600 09/19/22 [History] rOPINIRole HCL [Requip] 4 mg PO HS 09/19/22 [History] Famotidine [Pepcid] 20 mg PO BID #60 tablet 12/18/22 [Rx] predniSONE 10 mg PO DAILY@0600 12/23/22 [History] ALPRAZolam [Xanax] 0.25 mg PO Q6H PRN #4 tab 12/29/22 [Rx] Acetaminophen Tab [Tylenol] 1,000 mg PO Q6HR PRN tab 12/29/22 [Rx] Albuterol Inhaler [Ventolin Hfa Inhaler] 2 puff INHALATION RT-QID each 12/29/22 [Rx] Doxycycline [Vibramycin] 100 mg PO BID 7 Days #14 cap 12/29/22 [Rx] Tiotropium 2.5 Mcg/Puff [Spiriva Respimat 2.5 Mcg] 2 puff INHALATION RT-DAILY each 12/29/22 [Rx] Tobra-Dexamet 0.3-0.1% Eye Adelita [Tobradex Ophth Susp] 2 drops RIGHT EYE Q4HR ml 12/29/22 [Rx] Furosemide [Lasix] 20 mg PO BID@0600,1200 01/04/23 [History] Insulin Lispro [humaLOG Kwikpen] See Protocol SQ ACHS 01/04/23 [History] carvediloL [Coreg] 6.25 mg PO BID 01/04/23 [History] Follow up Appointment(s)/Referral(s): Candace Moreland MD [Primary Care Provider] - 1-2 days Jose Elias Goodman MD [STAFF PHYSICIAN] - 01/17/23 10:15 am Discharge Disposition: - Preliminary Cause of Preliminary Cause of : COPD
--- NOTE | 2023-01-24 10:01 | CDI ---
Documentation Clarification Form Date: 01/24/2023 9:44:14 AM From: Valencia Shore RN, CCDS Email: [email or web address] Admit Date: 01/04/2023 3:02:00 PM Patient Name: Estelle Mohr Visit Number: [id number] Discharge Date: 01/22/2023 5:08:00 PM ATTENTION: The Clinical Documentation Specialists (CDI) and [facility] Coding Staff appreciate your assistance in clarifying documentation. Please respond to the clarification below the line at the bottom and electronically sign. The CDI & [facility] Coding staff will review the response and follow-up if needed. Please note: Queries are made part of the Legal Health Record. If you have any questions, please contact the author of this message via ITS. Dr. Molly Canela "Possible septic shock" and "doubt septic shock" is documented in the progress notes with no mention of shock in the discharge summary. Additional clarification regarding the type of shock is requested. Patient history/risk factors: Severe COPD, hypoxic and hypercapnic respiratory failure, home oxygen and chronic leukocytosis. Admitted with acute hypoxic and hypercapnic respiratory failure, COPD exacerbation. Developed possible sepsis and pneumonia. Clinical Indicators: 01/09 BP's: 66/29-66/31-77/33-92/34-133/41 01/10 BP's: 120/47-135/48-174/53 01/09 blood cultures: no growth 01/09 IM: "sepsis, with septic shock and hypotension, requiring pressor support." 01/10 Pulmonary: "Sepsis and possible septic shock with hypotension requiring fluid boluses followed by norepinephrine infusion." 01/11 Pulmonary: " Sepsis, doubt septic shock, I believe the hypertension is hypovolemic in nature responded well to volume replacement but nonetheless required a short course of norepinephrine were in suspected septic shock, but clinically I believe this is mostly hypovolemia." 01/18 Pulmonary: "Possible underlying sepsis, with hypotension." Discharge summary: "sepsis, mostly due to hypovolemia and hypotension, requiring pressor support." Treatment: 2L IV bolus on 01/09. IV Levophed on 01/09 and 01/10 - paused for duration of admission d/t elevated BP. Please clarify the type of shock: [ ] Septic Shock [ x ] Hypovolemic Shock [ ] Other, please specify [ ] Unable to determine MTDD
--- NOTE | 2023-01-24 10:19 | CDI ---
Documentation Clarification Form Date: 01/24/2023 10:11:05 AM From: Valencia Shore RN, CCDS Email: [email or web address] Admit Date: 01/04/2023 3:02:00 PM Patient Name: Estelle Mohr Visit Number: [id number] Discharge Date: 01/22/2023 5:08:00 PM ATTENTION: The Clinical Documentation Specialists (CDI) and [facility] Coding Staff appreciate your assistance in clarifying documentation. Please respond to the clarification below the line at the bottom and electronically sign. The CDI & [facility] Coding staff will review the response and follow-up if needed. Please note: Queries are made part of the Legal Health Record. If you have any questions, please contact the author of this message via ITS. Dr. Molly Canela Sepsis and possible underlying sepsis is documented in the progress notes starting on 01/09 which may lack sufficient clinical evidence/support in the medical record. Additional clarification is requested. History/Risk Factors: Chronic leukocytosis, severe COPD, hypoxic and hypercapnic respiratory failure and home oxygen. Admitted with acute hypoxic and hypercapnic respiratory failure, COPD exacerbation. Developed possible pneumonia and sepsis. Clinical Indicators: 01/09 BP's: 66/29-66/31-77/33-92/34-133/41 01/10 BP's: 120/47-135/48-174/53 Temps range from 95.9-99.0 WBC range 6.5-16.0 01/09 blood cultures: no growth H&P: "chronic leukocytosis." 01/09 IM: "sepsis, with septic shock and hypotension, requiring pressor support." 01/10 Pulmonary: "Sepsis and possible septic shock with hypotension requiring fluid boluses followed by norepinephrine infusion." 01/11 Pulmonary: " Sepsis, doubt septic shock, I believe the hypertension is hypovolemic in nature responded well to volume replacement but nonetheless required a short course of norepinephrine were in suspected septic shock, but clinically I believe this is mostly hypovolemia." 01/18 Pulmonary: "Possible underlying sepsis, with hypotension." Discharge summary: "sepsis, mostly due to hypovolemia and hypotension, requiring pressor support." Treatment: 2L IV bolus on 01/09. IV Levophed on 01/09 and 01/10 - paused for duration of admission d/t elevated BP. Empiric Vancomycin 1.5gm on 01/04 and IV Cefepime 2gm 01/04-01/11 for possibility of underlying pneumonia. No antibiotics after 01/11. Please clarify if Sepsis is a valid diagnosis? [ ] Yes, Sepsis is present as evidence by (additional clinical support): [x ] No, Sepsis was ruled out [ ] Other (please specify diagnosis) [ ] Unable to determine MTDD
== END 2023-01-22 17:08 | disposition expired | DRG 207 ==
LOC: EC 12:34 → 2SICU 15:02 → 5NMEDONC 01-06 10:43 → 2SICU 01-09 09:16
PROVIDERS: ADMIT Internal Medicine; ATTEND Internal Medicine
PROC: 5A09357 Assistance with Respiratory Ventilation, Less than 24 Consecutive Hours, Continuous Positive Airway Pressure (ICD-10-PCS; 2023-01-04)
PROC: 0D9670Z Drainage of Stomach with Drainage Device, Via Natural or Artificial Opening (ICD-10-PCS; 2023-01-06)
PROC: 5A1955Z Respiratory Ventilation, Greater than 96 Consecutive Hours (ICD-10-PCS; principal; 2023-01-09)
PROC: 0BH17EZ Insertion of Endotracheal Airway into Trachea, Via Natural or Artificial Opening (ICD-10-PCS; 2023-01-09)
PROC: 02HV33Z Insertion of Infusion Device into Superior Vena Cava, Percutaneous Approach (ICD-10-PCS; 2023-01-09)
PROC: 03HY32Z Insertion of Monitoring Device into Upper Artery, Percutaneous Approach (ICD-10-PCS; 2023-01-09)
PROC: 4A133J1 Monitoring of Arterial Pulse, Peripheral, Percutaneous Approach (ICD-10-PCS; 2023-01-09)
PROC: 4A133B1 Monitoring of Arterial Pressure, Peripheral, Percutaneous Approach (ICD-10-PCS; 2023-01-09)
PROC: 3E043XZ Introduction of Vasopressor into Central Vein, Percutaneous Approach (ICD-10-PCS; 2023-01-09)
PROC: 3E0G76Z Introduction of Nutritional Substance into Upper GI, Via Natural or Artificial Opening (ICD-10-PCS; 2023-01-09)
PROC: 0DH67UZ Insertion of Feeding Device into Stomach, Via Natural or Artificial Opening (ICD-10-PCS; 2023-01-09)
PROC: 02HV33Z Insertion of Infusion Device into Superior Vena Cava, Percutaneous Approach (ICD-10-PCS; 2023-01-10)
DX: J44.1 Chronic obstructive pulmonary disease with (acute) exacerbation (principal); J18.9 Pneumonia, unspecified organism; J96.21 Acute and chronic respiratory failure with hypoxia; J96.22 Acute and chronic respiratory failure with hypercapnia; I50.32 Chronic diastolic (congestive) heart failure; E24.2 Drug-induced Cushing's syndrome; E44.0 Moderate protein-calorie malnutrition; Z68.41 Body mass index [BMI] 40.0-44.9, adult; J98.11 Atelectasis; J44.0 Chronic obstructive pulmonary disease with (acute) lower respiratory infection; F41.9 Anxiety disorder, unspecified; D50.9 Iron deficiency anemia, unspecified; I11.0 Hypertensive heart disease with heart failure; E86.1 Hypovolemia; F32.A Depression, unspecified; M06.9 Rheumatoid arthritis, unspecified; Z66 Do not resuscitate; Z51.5 Encounter for palliative care; Z99.81 Dependence on supplemental oxygen; M10.9 Gout, unspecified; D69.6 Thrombocytopenia, unspecified; Z87.440 Personal history of urinary (tract) infections; H93.13 Tinnitus, bilateral; R57.1 Hypovolemic shock; Z79.4 Long term (current) use of insulin; Z97.4 Presence of external hearing-aid; Z86.16 Personal history of COVID-19; Z79.1 Long term (current) use of non-steroidal anti-inflammatories (NSAID); G89.29 Other chronic pain; F90.9 Attention-deficit hyperactivity disorder, unspecified type; M19.90 Unspecified osteoarthritis, unspecified site; G47.33 Obstructive sleep apnea (adult) (pediatric); M54.9 Dorsalgia, unspecified; R73.9 Hyperglycemia, unspecified; T38.0X5A Adverse effect of glucocorticoids and synthetic analogues, initial encounter; Z79.2 Long term (current) use of antibiotics; H91.90 Unspecified hearing loss, unspecified ear; G25.81 Restless legs syndrome; Z79.51 Long term (current) use of inhaled steroids; Z79.52 Long term (current) use of systemic steroids; Z79.899 Other long term (current) drug therapy; Z80.0 Family history of malignant neoplasm of digestive organs; Z80.49 Family history of malignant neoplasm of other genital organs; Z80.8 Family history of malignant neoplasm of other organs or systems; Z82.5 Family history of asthma and other chronic lower respiratory diseases; Z87.01 Personal history of pneumonia (recurrent); Z90.710 Acquired absence of both cervix and uterus; Z90.721 Acquired absence of ovaries, unilateral; Z96.651 Presence of right artificial knee joint; Z86.14 Personal history of Methicillin resistant Staphylococcus aureus infection; Z90.49 Acquired absence of other specified parts of digestive tract; Z85.89 Personal history of malignant neoplasm of other organs and systems; Z71.3 Dietary counseling and surveillance; Z87.891 Personal history of nicotine dependence; Z53.8 Procedure and treatment not carried out for other reasons
CPT/HCPCS: 36415; 36573; 36600; 71045; 80048; 80053; 81001; 82805; 83735; 83880; 84132; 84145; 84484; 85025; 85027; 85610; 85730; 87040; 87070; 87205; 93005; 94003; 94640; 94660; 94760; 96374; 99291